=== PATIENT | male | born 1955 | race Caucasian/White ===

== ENCOUNTER → 2017-06-23 07:37 | Outpatient (CLI) | payer OTHER, SELFPAY ==
[2017-06-23 08:36] LABS: AST(SGOT) 14 U/L (15-37); Alanine Aminotransfer ALT/SGPT 27 U/L (16-61); Albumin, Serum 3.7 g/dL (3.2-5.0); Alkaline Phosphatase 116 U/L (45-117); Bilirubin, Direct 0.27 mg/dL (0.00-0.30); Cholesterol 148 mg/dL (200); High Density Lipoprotein 48 mg/dL; Protein, Total 7.7 g/dL (6.4-8.2); Thyroid Stim Hormone (TSH) 1.23 uIU/mL (0.358-3.74); Triglycerides 119 mg/dL; Very Low Density Lipoprotein 24 mg/dL (5-40)
== END ==
PROVIDERS: Family Provider Internal Medicine; PCP Internal Medicine
DX: I25.10 Atherosclerotic heart disease of native coronary artery without angina pectoris (principal); I48.0 Paroxysmal atrial fibrillation; I10 Essential (primary) hypertension; E78.5 Hyperlipidemia, unspecified
CPT/HCPCS: 36415; 80061; 80076; 84443

== ENCOUNTER → 2017-07-20 14:03 | Outpatient (CLI) | payer OTHER, SELFPAY ==
[2017-07-20 16:20] LABS: Anion Gap 7 (5-15); BUN 16 mg/dL (7-18); BUN/Creat Ratio 13.8 RATIO (10-20); Calcium,Total 8.8 mg/dL (8.5-10.1); Chloride 106 mmol/L (98-107); Creatinine, Serum 1.16 mg/dL (0.70-1.30); EST Glomerular Filtration Rate 68 mL/min (>60); Est Glom Filt Rate - Afr Amer 82 mL/min (>60); Glucose 105 mg/dL (74-106); Potassium 3.1 mmol/L (3.5-5.1); Sodium Level 143 mmol/L (136-145)
== END ==
PROVIDERS: Family Provider Internal Medicine; PCP Internal Medicine; Visit Provider Internal Medicine Cardiovascular Disease
DX: I25.10 Atherosclerotic heart disease of native coronary artery without angina pectoris (principal); I10 Essential (primary) hypertension
CPT/HCPCS: 36415; 80048

== ENCOUNTER → 2018-02-21 09:18 | Outpatient (CLI) | payer OTHER, SELFPAY ==
[2018-02-21 10:35] LABS: Mean Corp Hgb Conc 32.6 g/gl (32-36); Mean Corpuscular Volume 89.2 fL (80-94); Mean Platelet Vol. 10.1 fl (6.2-12.0); Platelet Count 245 K/mm3 (150-450); RBC Distribution Width CV 13.9 % (11.6-14.6); RBC Distribution Width SD 45.7 fl (35.1-43.9); Red Blood Count 4.82 M/mm3 (4.6-6.2); White Blood Count 7.1 K/mm3 (4.4-11.0)
[2018-02-21 10:37] LABS: Scan Indicated on CBC? Y/N NO
[2018-02-21 11:17] LABS: ALB/GLOB Ratio 0.9 RATIO (0.9-2.4); AST(SGOT) 13 U/L (15-37); Alanine Aminotransfer ALT/SGPT 26 U/L (16-61); Albumin, Serum 3.7 g/dL (3.2-5.0); Alkaline Phosphatase 109 U/L (45-117); Anion Gap 6 (5-15); BUN 17 mg/dL (7-18); BUN/Creat Ratio 18.6 RATIO (10-20); Calcium,Total 8.6 mg/dL (8.5-10.1); Chloride 106 mmol/L (98-107); Creatinine, Serum 0.92 mg/dL (0.70-1.30); EST Glomerular Filtration Rate 89 mL/min (>60); Est Glom Filt Rate - Afr Amer 108 mL/min (>60); Glucose 99 mg/dL (74-106); Potassium 4.3 mmol/L (3.5-5.1); Protein, Total 7.7 g/dL (6.4-8.2); Sodium Level 141 mmol/L (136-145); Thyroid Stim Hormone (TSH) 1.13 uIU/mL (0.358-3.74)
== END ==
DX: I48.0 Paroxysmal atrial fibrillation (principal); Z79.899 Other long term (current) drug therapy
CPT/HCPCS: 36415; 80053; 84443; 85027

== ENCOUNTER → 2018-09-01 07:43 | Outpatient (CLI) | payer OTHER, SELFPAY ==
[2018-09-01 08:43] LABS: Hemoglobin A1c 5.8 % (4.2-6.3)
== END ==
PROVIDERS: Family Provider Internal Medicine; PCP Internal Medicine; Referring Provider Internal Medicine; Visit Provider Internal Medicine
DX: R73.01 Impaired fasting glucose (principal)
CPT/HCPCS: 36415; 83036

== ENCOUNTER → 2018-10-11 12:17 | Outpatient (CLI) | payer OTHER, SELFPAY ==
[2018-10-11 13:35] LABS: Hematocrit 40.3 % (40-54); Hemoglobin 13.2 g/dl (13.0-16.5); Mean Corp Hgb Conc 32.8 g/gl (32-36); Mean Corpuscular Hgb 28.8 pg (27.0-32.0); Mean Platelet Vol. 9.8 fl (6.2-12.0); Platelet Count 250 K/mm3 (150-450); RBC Distribution Width SD 44.9 fl (35.1-43.9); Red Blood Count 4.58 M/mm3 (4.6-6.2); White Blood Count 7.7 K/mm3 (4.4-11.0)
[2018-10-11 13:36] LABS: Scan Indicated on CBC? Y/N NO
[2018-10-11 14:21] LABS: ALB/GLOB Ratio 0.9 RATIO (0.9-2.4); AST(SGOT) 15 U/L (15-37); Alanine Aminotransfer ALT/SGPT 21 U/L (16-61); Albumin, Serum 3.4 g/dL (3.2-5.0); Alkaline Phosphatase 118 U/L (45-117); Anion Gap 8 (5-15); BUN 21 mg/dL (7-18); BUN/Creat Ratio 20.2 RATIO (10-20); Calcium,Total 8.6 mg/dL (8.5-10.1); Chloride 109 mmol/L (98-107); Creatinine, Serum 1.04 mg/dL (0.70-1.30); EST Glomerular Filtration Rate 77 mL/min (>60); Est Glom Filt Rate - Afr Amer 93 mL/min (>60); Globulin 3.9 g/dL (2.2-4.2); Glucose 91 mg/dL (74-106); Potassium 3.7 mmol/L (3.5-5.1); Protein, Total 7.3 g/dL (6.4-8.2); Sodium Level 144 mmol/L (136-145); Thyroid Stim Hormone (TSH) 1.02 uIU/mL (0.358-3.74)
== END ==
PROVIDERS: Family Provider Internal Medicine; PCP Internal Medicine; Referring Provider Internal Medicine Cardiovascular Disease; Visit Provider Internal Medicine Cardiovascular Disease
DX: I10 Essential (primary) hypertension (principal); Z79.899 Other long term (current) drug therapy
CPT/HCPCS: 36415; 80053; 84443; 85027

== ENCOUNTER → 2019-04-04 14:26 | Outpatient (CLI) | payer OTHER, SELFPAY ==
[2019-04-04 16:20] LABS: Albumin, Serum 3.7 g/dL (3.2-5.0)
== END ==
PROVIDERS: Family Provider Internal Medicine; PCP Internal Medicine; Referring Provider Specialist; Visit Provider Specialist
DX: Z01.812 Encounter for preprocedural laboratory examination (principal)
CPT/HCPCS: 36415; 82040

== ENCOUNTER → 2019-06-06 08:20 | Outpatient (CLI) | payer OTHER, SELFPAY ==
[2019-06-06 09:31] LABS: Cholesterol 155 mg/dL (200); High Density Lipoprotein 50 mg/dL; Triglycerides 98 mg/dL; Very Low Density Lipoprotein 20 mg/dL (5-40)
== END ==
PROVIDERS: Family Provider Internal Medicine; PCP Internal Medicine; Referring Provider Internal Medicine Cardiovascular Disease; Visit Provider Internal Medicine Cardiovascular Disease
DX: I25.10 Atherosclerotic heart disease of native coronary artery without angina pectoris (principal); E78.49 Other hyperlipidemia
CPT/HCPCS: 36415; 80061

== ENCOUNTER → 2019-10-06 10:11 | Outpatient (CLI) | payer BC, SELFPAY ==
[2019-10-05 07:50] VITALS: BMI 34.7
[2019-10-06 11:43] LABS: Anion Gap 5 (5-15); BUN 17 mg/dL (7-18); BUN/Creat Ratio 16.3 RATIO (10-20); Calcium,Total 8.9 mg/dL (8.5-10.1); Chloride 111 mmol/L (98-107); Creatinine, Serum 1.04 mg/dL (0.70-1.30); EST Glomerular Filtration Rate 76 mL/min (>60); Est Glom Filt Rate - Afr Amer 93 mL/min (>60); Glucose 85 mg/dL (74-106); Potassium 3.8 mmol/L (3.5-5.1); Sodium Level 144 mmol/L (136-145)
== END ==
PROVIDERS: PCP Internal Medicine
DX: I10 Essential (primary) hypertension (principal)
CPT/HCPCS: 36415; 80048

== ENCOUNTER 2019-10-30 12:44 | Observation (INO) | payer BC, SELFPAY ==
[2019-10-05 07:50] VITALS: BMI 34.7
--- NOTE | 2019-10-05 09:08 | HP_ITS ---
Intake Vital Signs 10/05/19 BMI 34.7 10/05/19 Height 6 ft 2.5 in 10/05/19 Weight: 255 lb 4 oz 10/05/19 BMI 32.3 10/05/19 BP 162/73 H 10/05/19 Blood Pressure Location Rt brachial 10/05/19 Position Sitting 10/05/19 Respiration 20 H 10/05/19 Pulse 50 L 10/05/19 Temp 98.2 F 10/05/19 Temp Source Temporal 10/05/19 Pulse Oximetry (%) 97 Intake Visit Reasons: GALLBLADDER PROBLEM/ [facility] 09/20 Chief Complaint: gallstones Director Peoplesoft Required: No Is patient in pain?: No Allergies Penicillins Allergy (Verified 10/05/19 07:47) Hives Medications Clopidogrel Bisulfate [Plavix] 75 mg PO DAILY 09/03/14 [History Confirmed 10/05/19] Lisinopril [Zestril] 40 mg PO BID 09/03/14 [History Confirmed 10/05/19] amiodarone 200 mg tablet 200 mg PO DAILY tab 10/05/19 [History Confirmed 10/05/19] amlodipine 5 mg tablet 5 mg PO DAILY 10/05/19 [History Confirmed 10/05/19] amlodipine 5 mg tablet 5 mg PO DAILY tab 10/05/19 [History Confirmed 10/05/19] atorvastatin 80 mg tablet 80 mg PO DAILY tab 10/05/19 [History Confirmed 10/05/19] ezetimibe 10 mg tablet 10 mg PO DAILY tab 10/05/19 [History Confirmed 10/05/19] furosemide 40 mg tablet 40 mg PO DAILY tab 10/05/19 [History Confirmed 10/05/19] metoprolol tartrate 25 mg tablet 50 mg PO BID tab 10/05/19 [History Confirmed 10/05/19] minoxidil 10 mg tablet 5 mg PO BID tab 10/05/19 [History Confirmed 10/05/19] nitroglycerin 0.4 mg sublingual tablet 0.4 mg SUBLINGUAL Q5-15M PRN tab 10/05/19 [History Confirmed 10/05/19] omeprazole 40 mg capsule,delayed release 40 mg PO DAILY cap 10/05/19 [History Confirmed 10/05/19] [facility] Medical History severe degenerative arthritis of right hip (Chronic) Rheumatoid arthritis (Chronic) Obstructive sleep apnea syndrome (Chronic) history of ischemic stroke (Chronic) HTN (hypertension) (Chronic) Hyperlipidemia (Chronic) Esophageal reflux (Chronic) Coronary atherosclerosis of [place] coronary vessel (Chronic) Atrial fibrillation (Acute) CAD (coronary artery disease) (Acute) COPD (chronic obstructive pulmonary disease) (Chronic) Surgical History History of cardiac catheterization (Acute) History of colonoscopy (Acute ~2015) History of coronary angioplasty (Acute) History of esophagogastroduodenoscopy (EGD) (Acute ~2015) History of heart artery stent (Acute) History of inguinal hernia repair (Acute) History of knee joint replacement (Acute) History of left shoulder replacement (Acute) History of total left hip arthroplasty (Acute) History of total right hip arthroplasty (Acute) Family History (Updated 10/05/19 @ 07:46 by Rena Rosas) Sister Cancer ovarian Brother Diabetes Social History (Updated 10/05/19 @ 09:[address] Dwayne Bess MD) Smoking Status: Never smoker HPI HPI HPI: SHANNON OLSON, is a 63 M who presents to the office today for HPI HPI Surgical H&P: Yes HPI: SHANNON OLSON, is a 63 M who presents to the office today for surgical consultation regarding ongoing problems with episodic right upper quadrant pain. The patient states about 2 weeks ago he was hospitalized with chest pain different from his abdominal pain. He states that he previously has coronary stents in place but that at [facility] he had cardiac catheterization and angioplasty but no additional stents placed. He is was in atrial fibrillation and was cardioverted. He is currently on in addition to his other medicines atorvastatin and clopidogrel and amiodarone and Eliquis. He is having problems postprandially with right upper quadrant pain that radiates to his back. He denies jaundice. He currently denies fever or chills or sweats. He is able to climb a flight of stairs. He had a gallbladder ultrasound performed demonstrating a gallbladder full of stones. Common bile duct was felt to be normal. He had in late August liver function tests and CBC which were normal. The patient is referred by his primary care physician Dr. Mary Carmen Lyons and a written copy of my surgical consult and recommendations will be returned to her ROS General General: Yes weight change; no appetite, fatigue, colon cancer, breast cancer or weakness HEENT HEENT: Yes eye surgery; no difficulty swallowing, eye injury, swollen glands or hoarseness Endo Endocrine: No thyroid disease, diabetes mellitus, thyroid cancer, Hair loss, heat intolerance or cold intolerance Musc Musculoskeletal: Yes rheumatoid arthritis; no back problems, arthritis, gout or joint pain Cardio Cardiovascular: Yes heart disease, atrial fibrillation, high blood pressure, heart attack and heart stent; no murmur, pacemaker, palpitations, shortness of breat with exertion or chest pain Psych Psychiatric: Yes depression; no anxiety or hearing voices Resp Respiratory: No shortness of breath, Yes sleep apnea, No cough, Yes COPD, No asthma, No emphysema, No wheezing Gastro Gastrointestinal: No abdominal pain, No nausea or vomiting, No diarrhea, No constipation, No blood in stool, No acid reflux, No hemorrhoids, No ulcers, Yes gallbladder problem, No black,tarry stools Flip Hematologic: Yes blood thinners, No blood disorders, No bleeding, No anemia, No blood clots Neuro Neurologic: No weakness Exam Const General: cooperative, comfortable, no acute distress Nutritional Appearance: obese Orientation: alert, awake, oriented x3 HENMT Head: normal to inspection Eyes General: appearance normal, both eyes and all related structures Neck Neck: normal visual inspection Resp Effort & Inspection: normal respiratory effort Auscultation: clear to auscultation bilaterally Cardio Rate: regular rate Rhythm: regular rhythm Heart Sounds: no murmurs GI Inspection: normal to inspection Palpation: soft, no hepatosplenomegaly Auscultation: normal bowel sounds Musc Cervical Spine: normal cervical lordosis Skin General: no rashes or lesions noted Neuro Cognition: normal cognition Extrem General: calf tenderness Psych Affect: normal affect Assessment & Plan Problems 1. Calculus of gallbladder with chronic cholecystitis without obstruction K80.10 Plan 63-year-old gentleman who is had a long-term history of known gallbladder disease perhaps stretching over 10 years. Previous attempts to perform a repair were delayed by history of blunt trauma fractured ribs and the patient never rescheduled. Over the years he has had intermittent symptoms but nothing severe. Recently he has had acute escalation of his symptoms of right upper quadrant pain postprandially. He is now interested in pursuing definitive treatment. There is increased risk because of the recent angioplasty without coronary stenting. He has atrial fibrillation. He is on dual anticoagulation. He also has rheumatoid arthritis but he is not on any immunologic's. I propose for him a laparoscopic cholecystectomy with selective cholangiography and in detail I discussed the technique, benefit, risk and alternatives. No guarantees of success of been offered. We discussed the current Covid-19 pandemic. The [facility] administration advises that they have a low local incidence. The patient has had an opportunity to ask and have questions answered. He will need to hold his Eliquis 48 hours preprocedure. Ideally we would have him hold his clopidogrel for 4 days preprocedure. We will check with his acid dipper regarding the timing of our surgical procedure because of his recent coronary intervention. The patient is aware that Covid-19 testing will be performed 2 days prior surgery and that he will require home quarantine from the time of this testing till surgery. I appreciate the opportunity of assisting with his surgical care. We will schedule and proceed as noted. Cc: Dr. Mary Carmen Bess M.D., F.A.C.S. Coding Level of Care Code 80642 Diagnoses Calculus of gallbladder with chronic cholecystitis without obstruction K80.10 ??Cholelithiasis location: gallbladder ??Biliary obstruction: without biliary obstruction 10/05/19 0908 <Electronically signed by Dwayne mueller MD> Date _ Dwayne Bess MD
--- NOTE | 2019-10-27 09:24 | EKG12_ITS ---
Test Reason : POSSIBLE ST ELEVATIO Blood Pressure : / mmHG Vent. Rate : 070 BPM Atrial Rate : 070 BPM P-R Int : 190 ms QRS Dur : 172 ms QT Int : 486 ms P-R-T Axes : 044 001 065 degrees QTc Int : 524 ms Normal sinus rhythm Left bundle branch block Abnormal ECG When compared with ECG of 30-OCT-2019 14:25, MANUAL COMPARISON REQUIRED, DATA IS UNCONFIRMED Confirmed by JHONNY ALVARADO, PEACE ([id number]), editorial writer GIA LING ([id number]) on 11/07/2019 9:52:05 AM Referred By: Dwayne Bess Confirmed By:PEACE BARRY MD
[2019-10-27 10:17] LABS: Hematocrit 40.2 % (40-54); Hemoglobin 12.7 g/dL (13.0-16.5); Mean Corp Hgb Conc 31.6 g/dL (32-36); Mean Corpuscular Hgb 29.1 pg (27.0-32.0); Platelet Count 264 K/mm3 (150-450); RBC Distribution Width SD 47.3 fl (35.1-43.9); Red Blood Count 4.37 M/mm3 (4.6-6.2); White Blood Count 7.9 K/mm3 (4.4-11.0)
[2019-10-27 10:30] LABS: Anion Gap 4 (5-15); BUN 23 mg/dL (7-18); BUN/Creat Ratio 18.4 RATIO (10-20); Calcium,Total 8.7 mg/dL (8.5-10.1); Chloride 112 mmol/L (98-107); Creatinine, Serum 1.25 mg/dL (0.70-1.30); EST Glomerular Filtration Rate 62 mL/min (>60); Est Glom Filt Rate - Afr Amer 75 mL/min (>60); Glucose 81 mg/dL (74-106); Sodium Level 143 mmol/L (136-145)
[2019-10-29 10:49] LABS: Probe Check PASS; Specimen Processing Control PASS
[2019-10-30] VITALS (20 sets, daily range): BP systolic 92–158; BP diastolic 58–90; PULSE 40–67; RESP 16–18; TEMP 36.2–37.7; O2SAT 88–100; BMI 33.7; BMI 34.8; BMI 34.7
--- NOTE | 2019-10-30 06:20 | HP.PCM_ITS ---
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 Is patient in pain?: No Allergies Penicillins Allergy (Verified 10/05/19 07:47) Hives Medications Clopidogrel Bisulfate [Plavix] 75 mg PO DAILY 09/03/14 [History Confirmed 10/05/19] Lisinopril [Zestril] 40 mg PO BID 09/03/14 [History Confirmed 10/05/19] amiodarone 200 mg tablet 200 mg PO DAILY tab 10/05/19 [History Confirmed 10/05/19] amlodipine 5 mg tablet 5 mg PO DAILY 10/05/19 [History Confirmed 10/05/19] amlodipine 5 mg tablet 5 mg PO DAILY tab 10/05/19 [History Confirmed 10/05/19] atorvastatin 80 mg tablet 80 mg PO DAILY tab 10/05/19 [History Confirmed 10/05/19] ezetimibe 10 mg tablet 10 mg PO DAILY tab 10/05/19 [History Confirmed 10/05/19] furosemide 40 mg tablet 40 mg PO DAILY tab 10/05/19 [History Confirmed 0] metoprolol tartrate 25 mg tablet 50 mg PO BID tab 10/05/19 [History Confirmed 10/05/19] minoxidil 10 mg tablet 5 mg PO BID tab 10/05/19 [History Confirmed 10/05/19] nitroglycerin 0.4 mg sublingual tablet 0.4 mg SUBLINGUAL Q5-15M PRN tab 10/05/19 [History Confirmed 10/05/19] omeprazole 40 mg capsule,delayed release 40 mg PO DAILY cap 10/05/19 [History Confirmed 10/05/19] [facility] Medical History severe degenerative arthritis of right hip (Chronic) Rheumatoid arthritis (Chronic) Obstructive sleep apnea syndrome (Chronic) history of ischemic stroke (Chronic) HTN (hypertension) (Chronic) Hyperlipidemia (Chronic) Esophageal reflux (Chronic) Coronary atherosclerosis of [place] coronary vessel (Chronic) Atrial fibrillation (Acute) CAD (coronary artery disease) (Acute) COPD (chronic obstructive pulmonary disease) (Chronic) Surgical History History of cardiac catheterization (Acute) History of colonoscopy (Acute ~2015) History of coronary angioplasty (Acute) History of esophagogastroduodenoscopy (EGD) (Acute ~2015) History of heart artery stent (Acute) History of inguinal hernia repair (Acute) History of knee joint replacement (Acute) History of left shoulder replacement (Acute) History of total left hip arthroplasty (Acute) History of total right hip arthroplasty (Acute) Family History (Updated 10/05/19 @ 07:46 by Rena Rosas) Sister Cancer ovarian Brother Diabetes Social History (Updated 10/05/19 @ 09:[address] Dwayne Bess MD) Smoking Status: Never smoker HPI HPI HPI: SHANNON OLSON, is a 63 M who presents to the office today for HPI HPI Surgical H&P: Yes HPI: SHANNON OLSON, is a 63 M who presents to the office today for surgical consultation regarding ongoing problems with episodic right upper quadrant pain. The patient states about 2 weeks ago he was hospitalized with chest pain different from his abdominal pain. He states that he previously has coronary stents in place but that at [facility] he had cardiac catheterization and angioplasty but no additional stents placed. He is was in atrial fibrillation and was cardioverted. He is currently on in addition to his other medicines atorvastatin and clopidogrel and amiodarone and Eliquis. He is having problems postprandially with right upper quadrant pain that radiates to his back. He denies jaundice. He currently denies fever or chills or sweats. He is able to climb a flight of stairs. He had a gallbladder ultrasound performed demonstrating a gallbladder full of stones. Common bile duct was felt to be normal. He had in late August liver function tests and CBC which were normal. The patient is referred by his primary care physician Dr. Mary Carmen Lyons and a written copy of my surgical consult and recommendations will be returned to her ROS General General: Yes weight change; no appetite, fatigue, colon cancer, breast cancer or weakness HEENT HEENT: Yes eye surgery; no difficulty swallowing, eye injury, swollen glands or hoarseness Endo Endocrine: No thyroid disease, diabetes mellitus, thyroid cancer, Hair loss, heat intolerance or cold intolerance Musc Musculoskeletal: Yes rheumatoid arthritis; no back problems, arthritis, gout or joint pain Cardio Cardiovascular: Yes heart disease, atrial fibrillation, high blood pressure, heart attack and heart stent; no murmur, pacemaker, palpitations, shortness of breat with exertion or chest pain Psych Psychiatric: Yes depression; no anxiety or hearing voices Resp Respiratory: No shortness of breath, Yes sleep apnea, No cough, Yes COPD, No asthma, No emphysema, No wheezing Gastro Gastrointestinal: No abdominal pain, No nausea or vomiting, No diarrhea, No constipation, No blood in stool, No acid reflux, No hemorrhoids, No ulcers, Yes gallbladder problem, No black,tarry stools Flip Hematologic: Yes blood thinners, No blood disorders, No bleeding, No anemia, No blood clots Neuro Neurologic: No weakness Exam Const General: cooperative, comfortable, no acute distress Nutritional Appearance: obese Orientation: alert, awake, oriented x3 HENMT Head: normal to inspection Eyes General: appearance normal, both eyes and all related structures Neck Neck: normal visual inspection Resp Effort & Inspection: normal respiratory effort Auscultation: clear to auscultation bilaterally Cardio Rate: regular rate Rhythm: regular rhythm Heart Sounds: no murmurs GI Inspection: normal to inspection Palpation: soft, no hepatosplenomegaly Auscultation: normal bowel sounds Musc Cervical Spine: normal cervical lordosis Skin General: no rashes or lesions noted Neuro Cognition: normal cognition Extrem General: calf tenderness Psych Affect: normal affect Assessment & Plan Problems 1. Calculus of gallbladder with chronic cholecystitis without obstruction K80.10 Plan 63-year-old gentleman who is had a long-term history of known gallbladder disease perhaps stretching over 10 years. Previous attempts to perform a repair were delayed by history of blunt trauma fractured ribs and the patient never rescheduled. Over the years he has had intermittent symptoms but nothing severe. Recently he has had acute escalation of his symptoms of right upper quadrant pain postprandially. He is now interested in pursuing definitive treatment. There is increased risk because of the recent angioplasty without coronary stenting. He has atrial fibrillation. He is on dual anticoagulation. He also has rheumatoid arthritis but he is not on any immunologic's. I propose for him a laparoscopic cholecystectomy with selective cholangiography and in detail I discussed the technique, benefit, risk and alternatives. No guarantees of success of been offered. We discussed the current Covid-19 pandemic. The [facility] administration advises that they have a low local incidence. The patient has had an opportunity to ask and have questions answered. He will need to hold his Eliquis 48 hours preprocedure. Ideally we would have him hold his clopidogrel for 4 days preprocedure. We will check with his manager risk regarding the timing of our surgical procedure because of his recent coronary intervention. The patient is aware that Covid-19 testing will be performed 2 days prior surgery and that he will require home quarantine from the time of this testing till surgery. I appreciate the opportunity of assisting with his surgical care. We will schedule and proceed as noted. Cc: Dr. Mary Carmen Bess M.D., F.A.C.S. Coding Level of Care Code 04747 Diagnoses Calculus of gallbladder with chronic cholecystitis without obstruction K80.10 ??Cholelithiasis location: gallbladder ??Biliary obstruction: without biliary obstruction I have re-examined the patient. There are no clinical changes since date of exa m. Procedure Criteria Procedure Type: Elective COVID Risk Discussion: The surgeon/proceduralist and patient have discussed in detail the risk of exposure to and/or potential harm posed by the COVID-19 virus with having a surgery/procedure at this time versus the risk of delaying the surgery/procedure. It is not possible to know either the risk of delaying the surgery or procedure or chance of getting an infection with perfect accuracy, but a joint decision was made between the patient and the surgeon/proceduralist to proceed at this time with the scheduled surgery/procedure as indicated on the consent form.
[2019-10-30] MEDS: Lactated Ringers 1,000 ML 100 ML IV ×3 (07:00→11:22)
--- NOTE | 2019-10-30 07:25 | PCM.DC.GS ---
Discharge Diet: Light diet - advance as tolerated - if you have questions about your diet instructions, please talk to you doctor. Discharge Activity: May Not Drive - for 3-5days or while taking narcotic pain medicine. May shower in (days): 1 Lifting Restrictions: 10 pounds Call your doctor if your incision/area has: Continuous Slow Oozing, Sudden Increased Bleeding, Increased Pain/ Swelling, Increased Redness, Foul Smelling Discharge Call your doctor if you observe: Fever of 101 or Higher Suture Line Care: Avoid Pulling/Pushing, Avoid Pinching/Bending Additional Dressing/Incision Instructions:: Change or remove dressing in 4 days. Leave steri-strips in place for 1 week. Additional Instructions: You may resume your Plavix on November 01, 2019 if no signs of previous bleeding. You may resume Eliquis on November 02, 2019 if no signs of previous bleeding Allergies/Adverse Reactions: Allergies Penicillins Allergy (Verified 10/30/19 06:44) Hives Medications to take at Discharge Clopidogrel Bisulfate [Plavix] 75 mg PO DAILY 09/03/14 Lisinopril [Zestril] 40 mg PO BID 09/03/14 amiodarone 200 mg tablet 200 mg PO DAILY tab 10/05/19 amlodipine 5 mg tablet 5 mg PO DAILY 10/05/19 atorvastatin 80 mg tablet 80 mg PO DAILY tab 10/05/19 ezetimibe 10 mg tablet 10 mg PO DAILY tab 10/05/19 furosemide 40 mg tablet 40 mg PO DAILY tab 10/05/19 metoprolol tartrate 25 mg tablet 50 mg PO BID tab 10/05/19 minoxidil 10 mg tablet 5 mg PO BID tab 10/05/19 nitroglycerin 0.4 mg sublingual tablet 0.4 mg SUBLINGUAL Q5-15M PRN tab 10/05/19 omeprazole 40 mg capsule,delayed release 40 mg PO DAILY cap 10/05/19 Apixaban [Eliquis] 5 mg PO BID 10/24/19 Hydrocodone Bitart/Apap 5-325 [[place] 5MG-325MG] 1 tablet PO Q6H PRN PRN 2 Days #5 tablet 10/30/19 The following prescriptions were given: Hydrocodone Bitart/Apap 5-325 [[place] 5MG-325MG] 1 tablet PO Q6H PRN PRN 2 Days #5 tablet PRN Reason: Pain Transmission Status: Sent to [facility] Primary Care Physician: Mary Carmen Lyons MD [Primary Care Provider] - Test Results: Test results from this visit will be discussed in further detail at your follow-up appointment, if applicable. Please Follow Up With: Dwayne Bess MD - [phone] When: Call to make an appointment to be seen in about 10 days.
--- NOTE | 2019-10-30 07:30 | RAD_ITS ---
STUDY: INTRAOPERATIVE CHOLANGIOGRAM. REASON FOR EXAM: Male, 64 years old. ABD PAIN FLUOROSCOPY TIME (if supplied): ( 26 seconds ) minutes/seconds. A single loop consisting of 178 images were submitted. TECHNIQUE: An intraoperative cholangiogram was performed by the surgeon. Imaging was submitted. COMPARISON: None. FINDINGS: The intrahepatic biliary ducts are unremarkable. The common bile duct is not dilated. Free flow of contrast into the duodenum. RAD/Cholangiogram/ O R,Initial IMPRESSION: Unremarkable intraoperative cholangiogram. Electronically Signed: Beka Zuleta, at 9:28 EDT , Service support ,
--- NOTE | 2019-10-30 07:30 | HERN_PTH ---
PATIENT: SHANNON OLSON LOC: [facility] U#:[id number] AGE/SX: 64/M ROOM: [facility] RE10/30/[address]: Dr. Dwayne Bess MD : [id number] BED: 1 DIS: 10/31/2019 SPEC #: [id number] RECD: 10/30/19 10:27 STATUS: LALIT SRIVASTAVANatalia #: [id number] KAILA: 10/30/19 07:[address]: Dwayne Bess DEPT: SURGICAL PATHOLOGY RECD BY: Narciso Roland ENTERED: 10/30/19 10:50 SP TYPE: Hernia OTHR DR: Dr. Mary Carmen Lyons MD Tissues: A - HERNIA B - Gallbladder, NOS Procedures: Surgery Specimen Level II Surgery Specimen Level III HEADER OPERATION: Laparoscopic cholecystectomy with IOC PRE-OP DIAGNOSIS: Calculus of gallbladder with chronic cholecystitis TISSUE SUBMITTED: A - Hernia sac and contents, B - Gallbladder MICROSCOPIC DIAGNOSIS A. Hernia sac and contents, excision: Hernia sac with fibrosis and minimal chronic inflammation. B. Gallbladder, cholecystectomy: Chronic cholecystitis and cholelithiasis. AM:ashanti 10/31/19 MICROSCOPIC DESCRIPTION Slides are reviewed. GROSS DESCRIPTION A - Received in fixative is one container labeled with the patient's name and designated hernia sac and contents. The specimen consists of an irregular fragment of pink-yellow fibrofatty tissue measuring 4.5 x 3.5 x 2 cm. Serial sections reveal yellow cut surfaces. No mass lesions are identified. Button And Buckle Maker sections are submitted in one cassette. B - Received is one container labeled with the patient's name and designated gallbladder. The specimen consists of a gallbladder measuring 13 x 4.3 x 3.2 cm. The external surface is smooth and glistening. Focally, it is granular, hemorrhagic and contains cautery artifact. The lumen of the gallbladder contains yellow-green mucoid bile and dark jc-black calculi ranging in size <0.1 to 2.2 cm. The mucosa is bile-stained and without any mass lesions. The gallbladder wall averages 0.2 cm in thickness and is free of mass lesions. Button And Buckle Maker sections of the gallbladder and the cystic duct at margin of resection are submitted in one cassette. / AM:ashanti 10/30/19 TC:3 CPT: 16222, 99516
--- NOTE | 2019-10-30 09:13 | OP.PCM_ITS ---
Problem List (1) Cholelithiasis with chronic cholecystitis Status: Chronic Qualifiers: Report of Operation Date of Procedure: 10/30/19 Pre-Operative Diagnosis: Chronic cholecystitis cholelithiasis, umbilical hernia Post-Operative Diagnosis: Same Surgery/Procedure Performed:: Laparoscopic cholecystectomy with cholangiograms. Umbilical herniorrhaphy with Nurolon Description of Surgical Findings:: Timeout and informed consent was obtained. 64-year-old gentleman was taken to the operating room placed by the table underwent general endotracheal intubation and anesthesia. Clindamycin 900 mg are given intravenously preoperatively. The abdomen was sterilely prepped and draped. 0.5% Marcaine was used as a local anesthetic. Throughout the procedure total of 30 cc was used. Skin sites were pre-anesthetized. A curvilinear incision was made in the inferior portion of the umbilicus sharp and blunt dissection was used to elevate the umbilical skin. A incarcerated umbilical hernia with some omentum was encountered. This was transected using electrocautery on the sac and contents submitted the specimen. Holding sutures of 0 Vicryl placed. The abdomen was insufflated with CO2 to a pressure of 10 mmHg pressure using a varies needle. 10 mm trocar was inserted. 10 mm laparoscope inserted. No concern trocar injuries. The abdomen was rapidly inspected no evidence of any superficial abnormalities other than that the omentum was densely adherent to the gallbladder. 5 mm trochars were placed in the epigastric mid abdomen right upper quadrant. The omentum had to be carefully bluntly and sharply dissected free from the gallbladder. Were needed hemostasis attained with hemo-lock clips. Then tedious dissection was performed at the infundibular area. The patient's body habitus and fibrofatty tissue made this challenging. Finally I was able to get the critical view identified the cystic duct cystic artery and the liver plate. I placed 2 hemo-lock clips proximally and the cystic artery one distally. Transected it. Put a hemo-lock clip on the cystic duct made incision and cystic duct placed a 14-gauge Angiocath of that lab and inserted a cholangiogram catheter. I then obtained fluoroscopically: Angiograms demonstrated normal ductal anatomy and free flow into the small bowel. The cholangiogram catheter was removed and 1 additional hemo-lock was placed on the cystic duct stump prior to transecting it. The gallbladder was tediously dissected free from the liver bed. Hemostasis was obtained with electrocautery. Fibrillar was placed in the liver bed at the completion as well to assure hemostasis. The gallbladder was placed in a retrieval bag. The right upper quadrant was irrigated and aspirated free of excess fluid. Air was evacuated through an antiviral valve. The liver bed area was again inspected was noted to be hemostatic the area was allowed to deflate the fascia at the umbilicus had to be lengthened both lat erally to allow for removal of the markedly enlarged gallbladder with multiple stones. Then the fascia was tediously reapproximated transversely with multiple simple sutures of 0 Nurolon. Skin edges were approximated with interrupted 4 Monocryl subdermal stitches. Steri-Strips Telfa OpSite dressings applied. Sponge and instrument and needle counts were reported to the surgeon to be correct. Blood loss minimal. He tolerated the procedure well and was taken to the recovery room in satisfactory condition without apparent complication. Specimens umbilical hernia sac and contents plus gallbladder. Drains none. Blood loss minimal. Dwayne Bess M.D., F.A.C.S. Type of Anesthesia:: General Anesthesiologist: Yasmani Win
[2019-10-30] MEDS: Bupivacaine Mpf 0.5% 30 ML VIAL (09:18)
--- NOTE | 2019-10-30 12:38 | EKG12_ITS ---
Test Reason : PRE-OP Blood Pressure : / mmHG Vent. Rate : 047 BPM Atrial Rate : 047 BPM P-R Int : 202 ms QRS Dur : 118 ms QT Int : 544 ms P-R-T Axes : 045 011 -02 degrees QTc Int : 481 ms Sinus bradycardia Left ventricular hypertrophy with QRS widening Inferior infarct , age undetermined Confirmed by JHONNY ALVARADO, PEACE ([id number]), video tape editor MILTON BRANHAM ([id number]) on 10/31/2019 10:44:27 AM Referred By: Dwayne Bess Confirmed By:PEACE BARRY MD
--- NOTE | 2019-10-30 12:54 | PCM.PN.BLA ---
Progress Note Patient very nonspecific. He is complaining that he has never felt so badly after a general anesthetic and surgery. He is complaining of feeling lightheaded and dizzy. He is complaining of abdominal pain. No vital signs have yet been obtained an EFRAIN. We will obtain vital signs. The patient medical comorbidities I anticipate that we will hold onto him overnight. I am attempting to consult hospitalist for assistance. The patient's screener and blender is out of town. Laboratory, EKG, cardiac profile pending. Dwayne Bess M.D., F.A.C.S. STROKE Vital Signs/Narrative: Vital Signs Temp Pulse Resp BP Pulse Ox 10/30/19 12:41 97.4 F L 45 L 16 125/68 H 97 10/30/19 11:30 97.2 F L 44 L 16 119/72 92 10/30/19 11:15 43 L 16 128/90 H 94 10/30/19 11:00 43 L 16 121/67 H 91 10/30/19 10:45 42 L 16 126/74 H 91 10/30/19 10:30 42 L 16 92/71 95 10/30/19 10:15 42 L 16 119/67 96 10/30/19 10:00 40 L 16 122/70 H 94 10/30/19 09:45 41 L 16 113/77 94 10/30/19 09:35 98.1 F 45 L 16 140/78 H 88
--- NOTE | 2019-10-30 14:44 | EKG12_ITS ---
Test Reason : PRE-OP Blood Pressure : / mmHG Vent. Rate : 049 BPM Atrial Rate : 049 BPM P-R Int : 208 ms QRS Dur : 110 ms QT Int : 504 ms P-R-T Axes : 039 008 007 degrees QTc Int : 455 ms Sinus bradycardia Inferior infarct , age undetermined Abnormal ECG Confirmed by MANISHA MIJARES ([id number]), manuscript editor GIA LING ([id number]) on 11/02/2019 7:43:19 AM Referred By: Dwayne Bess Confirmed By:MANISHA MIJARES
--- NOTE | 2019-10-30 15:05 | PCM.PROGNOTE ---
Subjective: Patient seen and examined. Patient reports abdominal discomfort as well as lightheadedness postoperatively following laparoscopic cholecystectomy with cholangiogram and umbilical herniography. He denies chest pain, shortness of breath. Denies diaphoresis. - Physical Exam Vitals/I&O's: Vital Signs Temp Pulse Resp BP Pulse Ox 97.4 F L 52 L 18 138/69 H 99 10/30/19 15:00 10/30/19 15:00 10/30/19 15:00 10/30/19 15:00 10/30/19 15:00 Oxygen Flow Rate (L/min) 2 Oxygen Delivery Method Room Air Weight: 271 lb Body Mass Index (BMI) 34.7 Intake and Output for Last 24 Hours 10/28/19 10/29/19 10/30/19 23:59 23:59 23:59 Intake Total 2105 Balance 2105 General: Alert, Oriented x3, Cooperative HEENT: Atraumatic, PERRLA, EOMI, Normocephalic Neck: Supple, No JVD, Negative Carotid Bruits Lungs: Clear to auscultation, Normal air movement Cardiovascular: No murmurs, Bradycardic Abdomen: Bowel Sounds Present, Soft, Non Tender, Non-Distended, - - Postop sites intact Extremities: No clubbing, No cyanosis, No edema, Capillary Refill Less than 3 Seconds Skin: No rashes, No breakdown Musculoskeletal: No Tenderness to Palpation of Joints or Extremities Neurological: Cranial nerves II-XII grossly intact, Neuro grossly intact Psych/Mental Status: Normal Affect, Appropriate Laboratory Results 10/30/19 12:52: Troponin I 0.175 H Current Medications Acetaminophen (Tylenol) 650 mg PO Q6H PRN PRN PRN Reason: Pain Score 1-10/10 Hydrocodone Bitart/Acetaminophen ([place] 5mg-325mg) 1 - 2 tablet PO Q4H PRN PRN PRN Reason: Pain Score 1-10/10 Lactated Ringer's () 1,000 mls @ 50 mls/hr IV .Q20H [facility]EL[facility] Morphine Sulfate () 1 - 2 mg IV Q1H PRN PRN Reason: PAIN SCORE 1-10/10 Ondansetron HCl (Zofran) 4 mg IV Q8H PRN PRN PRN Reason: Nausea Sodium Chloride () 10 - 40 ml IV UD PRN PRN Reason: SALINE FLUSH Medical Necessity - Tobacco Use Smoking Status: Never smoker Tobacco Use: Non-smoker Assessment/Plan 1. Postoperative lightheadedness, abnormal troponin-history of CAD with prior stents. Per outside records, patient had stress echo 09/08/2019 which was abnormal and demonstrated basal and mid inferoseptal wall worsening with stress, indicating stress-induced ischemia. Per patient, he was then evaluated at [facility] with ballooning to prior stent approximately 6 weeks ago. Will request records. Trend enzymes. Resume anticoagulation with Eliquis and antiplatelet Plavix when okay per surgery. Continue statin, BP regimen with hold parameters. Obtain orthos. 2. Status post laparoscopic cholecystectomy with cholangiogram and umbilical herniorrhaphy postop day #0-management per surgery. 3. Hypertension-stable, continue amlodipine, lisinopril. Hold metoprolol tonight given mild bradycardia. 4. Hyperlipidemia-continue statin. 5. Recent diagnosis paroxysmal atrial fibrillation-on amiodarone, metoprolol, Eliquis. 6. Obesity-encouraged diet and lifestyle modifications. 7. GERD-continue PPI. DVT prophylaxis-SCDs, resume Eliquis when okay per surgery This patient was seen by KYLIE Nava under the supervision of Dr. Davies.
[2019-10-30] MEDS: Lactated Ringers 1,000 ML 50 ML IV (15:14)
[2019-10-30] MEDS: Acetaminophen 325 MG Tablet 650 MG PO (15:23)
--- NOTE | 2019-10-30 16:25 | PCM.PN.BLA ---
Progress Note Appreciate medical assistance Pt states he just feels wiped-out No CP or SoB Less abdominal pain Continue care. Plan discharge tomorrow STROKE Vital Signs/Narrative: Vital Signs Temp Pulse Resp BP Pulse Ox 10/30/19 15:00 97.4 F L 52 L 18 138/69 H 99 10/30/19 14:34 48 L 10/30/19 13:34 98.7 F 49 L 16 130/77 H 98 10/30/19 13:33 98.7 F 49 L 16 130/77 H 98 10/30/19 12:41 97.4 F L 45 L 16 125/68 H 97
[2019-10-30] MEDS: Ondansetron 4 MG/2 ML Vial IV (17:36)
[2019-10-30] MEDS: HYDROcodone Bitartrate/Apap 5/325 Tablet PO (17:36)
[2019-10-30 17:59] LABS: Mean Corp Hgb Conc 32.5 g/dL (32-36); Mean Corpuscular Hgb 29.7 pg (27.0-32.0); Mean Corpuscular Volume 91.3 fL (80-94); Mean Platelet Vol. 9.7 fl (6.2-12.0); Platelet Count 254 K/mm3 (150-450); RBC Distribution Width CV 14.2 % (11.6-14.6); RBC Distribution Width SD 47.8 fl (35.1-43.9); Red Blood Count 4.38 M/mm3 (4.6-6.2); White Blood Count 16.6 K/mm3 (4.4-11.0)
[2019-10-30 18:08] LABS: Anion Gap 5 (5-15); BUN 22 mg/dL (7-18); BUN/Creat Ratio 18.8 RATIO (10-20); Calcium,Total 8.6 mg/dL (8.5-10.1); Chloride 107 mmol/L (98-107); Creatinine, Serum 1.17 mg/dL (0.70-1.30); EST Glomerular Filtration Rate 67 mL/min (>60); Est Glom Filt Rate - Afr Amer 81 mL/min (>60); Estimated Creatinine Clearance 74.16 ml/min; Glucose 122 mg/dL (74-106); Sodium Level 141 mmol/L (136-145)
[2019-10-30] MEDS: Morphine 2 MG/ML Syringe IV ×2 (20:11→23:50)
[2019-10-30] MEDS: 0.9% Saline Lock 10 ML Syringe IV (20:12)
[2019-10-30] MEDS: Minoxidil 2.5 MG Tablet 5 MG PO (21:37)
--- NOTE | 2019-10-30 22:26 | EKG12_ITS ---
Test Reason : CP IN PACU ADMIT Blood Pressure : / mmHG Vent. Rate : 048 BPM Atrial Rate : 048 BPM P-R Int : 202 ms QRS Dur : 110 ms QT Int : 522 ms P-R-T Axes : 044 013 -13 degrees QTc Int : 466 ms Sinus bradycardia Inferior infarct , age undetermined Abnormal ECG When compared with ECG of 30-OCT-2019 12:56, MANUAL COMPARISON REQUIRED, DATA IS UNCONFIRMED Confirmed by JHONNY ALVARADO, PEACE ([id number]), image editor GIA LING ([id number]) on 11/07/2019 9:52:22 AM Referred By: Dwayne Bess Confirmed By:PEACE BARRY MD
[2019-10-31 03:14] VITALS: PULSE 71
[2019-10-31 03:40] VITALS: BP 154/60; BP 157/70; BP 157/74; PULSE 72; PULSE 74; PULSE 78; RESP 16; TEMP 37.2; O2SAT 94
[2019-10-31] MEDS: Ondansetron 4 MG/2 ML Vial IV (04:07)
[2019-10-31] MEDS: Morphine 2 MG/ML Syringe IV (04:25)
[2019-10-31 05:12] LABS: Absolute Neutrophil Count 12.4 X10^3/uL (2.0-7.7); Basophil# 0.01 X10^3/uL; Basophil% 0.1 % (0-1); Hematocrit 36.9 % (40-54); Hemoglobin 11.9 g/dL (13.0-16.5); Lymphocyte % 4.9 % (19-41); Mean Corp Hgb Conc 32.2 g/dL (32-36); Mean Corpuscular Hgb 29.5 pg (27.0-32.0); Mean Corpuscular Volume 91.6 fL (80-94); Mean Platelet Vol. 9.4 fl (6.2-12.0); Monocyte# 1.05 X10^3/uL; Monocyte% 7.4 % (0-10); NRBC Flagged by Analyzer 0 % (0-5); Neutrophil # 12.43 X10^3/uL (2.7-7.7); Neutrophil % 87.2 % (47-70); Platelet Count 205 K/mm3 (150-450); RBC Distribution Width CV 14.6 % (11.6-14.6); RBC Distribution Width SD 48.6 fl (35.1-43.9); Red Blood Count 4.03 M/mm3 (4.6-6.2); White Blood Count 14.2 K/mm3 (4.4-11.0)
--- NOTE | 2019-10-31 06:22 | PCM.PN.SRG ---
Subjective: Patient complains that his night was miserable. He complains of nausea. Complains of abdominal pain. He has not had any emesis. Nursing staff did getting up and walking. This is what was difficult for him. - Physical Exam Vitals/I&O's: Vital Signs Temp Pulse Resp BP Pulse Ox 98.9 F 72 16 154/60 H 94 10/31/19 03:40 10/31/19 03:40 10/31/19 03:40 10/31/19 03:40 10/31/19 03:40 Oxygen Flow Rate (L/min) 2 Oxygen Delivery Method Room Air Weight: 271 lb Body Mass Index (BMI) 34.7 Orthostatic Vital Signs Start: 10/31/19 04:35 Freq: q24h Status: Active Protocol: Activity Type Activity Date Activity User E-Sign Co-Sign Detail Recorded Client Recorded Date Recorded By Document 10/31/19 03:40 AML [id number] 10/31/19 04:36 AML 10/31/19 03:40 Orthostatic Vitals Standing -Blood Pressure (90/60-120/80) 157/74 H -Extremity Use Left Arm -Pulse Rate (60-100) 78 Sitting -Blood Pressure (90/60-120/80) 157/70 H -Extremity Use Left Arm -Pulse Rate (60-100) 74 Lying -Blood Pressure (90/60-120/80) 154/60 H -Extremity Use Left Arm -Pulse Rate (60-100) 72 Intake and Output for Last 24 Hours 10/29/19 10/30/19 10/31/19 23:59 23:59 23:59 Intake Total 3530.17 / 3580.17 150 / 150 Balance 3530.17 / 3580.17 150 / 150 General: Alert, Oriented x3, Cooperative, No apparent distress Lungs: Clear to auscultation Abdomen: Soft, - - Wounds are clean, abdomen appropriately tender right mid abdomen, not tense Laboratory Results 10/30/19 12:52: Troponin I 0.175 H 10/30/19 17:25: WBC 16.6 H, RBC 4.38 L, Hgb 13.0, Hct 40.0, MCV 91.3, MCH 29.7, MCHC 32.5, RDW Std Deviation 47.8 H, RDW Coeff of Santhosh 14.2, Plt Count 254, MPV 9.7 10/30/19 17:25: Sodium 141, Potassium 4.0, Chloride 107, Carbon Dioxide 29.0, Anion Gap 5, BUN 22 H, Creatinine 1.17, Estim Creat Clear Calc 74.16, Est GFR (MDRD) Af Amer 81, Est GFR (MDRD) Non-Af 67, BUN/Creatinine Ratio 18.8, Glucose 122 H, Calcium 8.6, Troponin I 0.176 H 10/30/19 20:15: Troponin I 0.175 H 10/31/19 05:00: WBC 14.2 H, RBC 4.03 L, Hgb 11.9 L, Hct 36.9 L, MCV 91.6, MCH 29.5, MCHC 32.2, RDW Std Deviation 48.6 H, RDW Coeff of Santhosh 14.6, Plt Count 205, MPV 9.4, Immature Gran % (Auto) 0.400, Neut % (Auto) 87.2 H, Lymph % (Auto) 4.9 L, [place] % (Auto) 7.4, Eos % (Auto) 0.0, Baso % (Auto) 0.1, Absolute Neuts (auto) 12.4 H, Absolute Lymphs (auto) 0.70 L, Nucleated RBC % 0 Current Medications Acetaminophen (Tylenol) 650 mg PO Q6H PRN PRN PRN Reason: Pain Score 1-10/10 Last Admin: 10/30/19 15:23 Dose: 650 mg Documented by: Hydrocodone Bitart/Acetaminophen ([place] 5mg-325mg) 1 - 2 tablet PO Q4H PRN PRN PRN Reason: Pain Score 1-10/10 Last Admin: 10/30/19 17:36 Dose: 1 tablet Documented by: Amiodarone HCl (Cordarone) 200 mg PO DAILY [facility] Amlodipine Besylate (Norvasc) 5 mg PO DAILY [facility] Atorvastatin Calcium (Lipitor) 80 mg PO QHS [facility] Ezetimibe (Zetia) 10 mg PO DAILY [facility] Enoxaparin Sodium (Lovenox) 40 mg SC X1 ONE Stop: 10/31/19 08:01 Lisinopril (Zestril) 40 mg PO BID [facility] Last Admin: 10/30/19 20:18 Dose: Not Given Documented by: Minoxidil (Loniten) 5 mg PO BID [facility] Last Admin: 10/30/19 21:37 Dose: 5 mg Documented by: Morphine Sulfate () 1 - 2 mg IV Q1H PRN PRN Reason: PAIN SCORE 1-10 Last Admin: 10/31/19 04:25 Dose: 2 mg Documented by: Ondansetron HCl (Zofran) 4 mg IV Q8H PRN PRN PRN Reason: Nausea Last Admin: 10/31/19 04:07 Dose: 4 mg Documented by: Pantoprazole Sodium (Protonix) 40 mg PO DAILY [facility] Sodium Chloride () 10 - 40 ml IV UD PRN PRN Reason: SALINE FLUSH Last Admin: 10/30/19 20:12 Dose: 10 ml Documented by: Medical Necessity - Tobacco Use Smoking Status: Never smoker Tobacco Use: Non-smoker Assessment/Plan I encouraged the patient that with continued activity he will improve. Discharge orders have been written. He will require medicine review prior to discharge. He will resume his Plavix tomorrow and his Eliquis on barring any problems with bleeding. I very much appreciate hospitalist assistance with his medical care. Dwayne Bess M.D., F.A.C.S.
[2019-10-31 06:59] VITALS: PULSE 71
[2019-10-31] MEDS: HYDROmorphone 1 MG/ML Syringe IV (07:22)
[2019-10-31] MEDS: Enoxaparin 40 MG/0.4 ML Syringe SC (08:49)
[2019-10-31] MEDS: Amiodarone 200 MG Tablet PO (08:49)
[2019-10-31] MEDS: amLODIPine 5 MG Tablet PO (08:50)
[2019-10-31] MEDS: Lisinopril 40 MG Tablet PO (08:50)
[2019-10-31] MEDS: Minoxidil 2.5 MG Tablet 5 MG PO (08:50)
[2019-10-31] MEDS: Pantoprazole Sodium 40 MG Tablet PO (08:51)
[2019-10-31] MEDS: Ezetimibe 10 MG Tablet PO (08:51)
[2019-10-31] MEDS: Psyllium 1 PACKET PO (09:02)
--- NOTE | 2019-10-31 09:06 | DCINST_ITS ---
You will use the following diet at home:: No restrictions Discharge Activity: May Not Drive - for 3-5days or while taking narcotic pain m edicine. May shower in (days): 1 Call your doctor if your incision/area has: Continuous Slow Oozing, Sudden Increased Bleeding, Increased Pain/ Swelling, Increased Redness, Foul Smelling Discharge Call your doctor if you observe: Fever of 101 or Higher, Shortness of breath, Dizziness, Fainting spells Suture Line Care: Avoid Pulling/Pushing, Avoid Pinching/Bending Additional Dressing/Incision Instructions:: Change or remove dressing in 4 days. Leave steri-strips in place for 1 week. Additional Instructions: You may resume plavix tomorrow and Eliquis on Allergies/Adverse Reactions: Allergies Penicillins Allergy (Verified 10/30/19 06:44) Hives Medications to take at Discharge Clopidogrel Bisulfate [Plavix] 75 mg PO DAILY 09/03/14 Lisinopril [Zestril] 40 mg PO BID 09/03/14 amiodarone 200 mg tablet 200 mg PO DAILY tab 10/05/19 amlodipine 5 mg tablet 5 mg PO DAILY 10/05/19 atorvastatin 80 mg tablet 80 mg PO DAILY tab 10/05/19 ezetimibe 10 mg tablet 10 mg PO DAILY tab 10/05/19 furosemide 40 mg tablet 40 mg PO DAILY tab 10/05/19 metoprolol tartrate 25 mg tablet 50 mg PO BID tab 10/05/19 minoxidil 10 mg tablet 5 mg PO BID tab 10/05/19 nitroglycerin 0.4 mg sublingual tablet 0.4 mg SUBLINGUAL Q5-15M PRN tab 10/05/19 omeprazole 40 mg capsule,delayed release 40 mg PO DAILY cap 10/05/19 Apixaban [Eliquis] 5 mg PO BID 10/24/19 Hydrocodone Bitart/Apap 5-325 [[place] 5MG-325MG] 1 tab PO Q6H PRN PRN 2 Days #5 tab 10/30/19 The following prescriptions were given: Hydrocodone Bitart/Apap 5-325 [[place] 5MG-325MG] 1 tab PO Q6H PRN PRN 2 Days #5 tab PRN Reason: Pain Transmission Status: Received by [facility] Primary Care Physician: Mary Carmen Lyons MD [Primary Care Provider] - Please follow up with your Primary Care Physician in: 1 Week Test Results: Test results from this visit will be discussed in further detail at your follow- up appointment, if applicable. Please Follow Up With: Dwayne Bess MD - [phone] When: Call to make an appointment to be seen in about 10 days. Proposed Discharge Date: 10/31/19
--- NOTE | 2019-10-31 09:34 | PHA.DC.MC ---
Pharmacy Service has performed discharge medication reconciliation and counseling for this patient. 1. HYDROCODONE/ACETAMINOPHEN 5/325MG PO Q6H PRN PAIN X 2 DAYS The patient's discharge medication list was reviewed for discrepancies and discrepancies were resolved. Home Medications Clopidogrel Bisulfate [Plavix] 75 mg PO DAILY 09/03/14 Lisinopril [Zestril] 40 mg PO BID 09/03/14 amiodarone 200 mg tablet 200 mg PO DAILY tab 10/05/19 amlodipine 5 mg tablet 5 mg PO DAILY 10/05/19 atorvastatin 80 mg tablet 80 mg PO DAILY tab 10/05/19 ezetimibe 10 mg tablet 10 mg PO DAILY tab 10/05/19 furosemide 40 mg tablet 40 mg PO DAILY tab 10/05/19 metoprolol tartrate 25 mg tablet 50 mg PO BID tab 10/05/19 minoxidil 10 mg tablet 5 mg PO BID tab 10/05/19 nitroglycerin 0.4 mg sublingual tablet 0.4 mg SUBLINGUAL Q5-15M PRN tab 10/05/19 omeprazole 40 mg capsule,delayed release 40 mg PO DAILY cap 10/05/19 Apixaban [Eliquis] 5 mg PO BID 10/24/19 Hydrocodone Bitart/Apap 5-325 [[place] 5MG-325MG] 1 tab PO Q6H PRN PRN 2 Days #5 tab 10/30/19 The patient was counseled on the following discharge medications and changes in medications for homegoing were reviewed. The Reason for Use, instructions for use, and potential side effects were reviewed for all new medications. The patient's questions regarding all of their medications were answered. The patient was able to verbally demonstrate an understanding of their discharge medications.
[2019-10-31 09:40] VITALS: BP 122/64; PULSE 70; RESP 14; TEMP 36.8; O2SAT 92
--- NOTE | 2019-10-31 09:45 | PN_ITS ---
Subjective: Patient seen and examined. Feels significantly improved today. Mild abdominal tenderness. Denies further lightheadedness. - Physical Exam Vitals/I&O's: Vital Signs Temp Pulse Resp BP Pulse Ox 98.9 F 71 16 154/60 H 94 10/31/19 03:40 10/31/19 06:59 10/31/19 03:40 10/31/19 03:40 10/31/19 03:40 Oxygen Flow Rate (L/min) 2 Oxygen Delivery Method Room Air Weight: 271 lb Body Mass Index (BMI) 34.7 Orthostatic Vital Signs Start: 10/31/19 04:35 Freq: q24h Status: Active Protocol: Activity Type Activity Date Activity User E-Sign Co-Sign Detail Recorded Client Recorded Date Recorded By Document 10/31/19 03:40 AML [id number] 10/31/19 04:36 AML 10/31/19 03:40 Orthostatic Vitals Standing -Blood Pressure (90/60-120/80) 157/74 H -Extremity Use Left Arm -Pulse Rate (60-100) 78 Sitting -Blood Pressure (90/60-120/80) 157/70 H -Extremity Use Left Arm -Pulse Rate (60-100) 74 Lying -Blood Pressure (90/60-120/80) 154/60 H -Extremity Use Left Arm -Pulse Rate (60-100) 72 Intake and Output for Last 24 Hours 10/29/19 10/30/19 10/31/19 23:59 23:59 23:59 Intake Total 3530.17 / 3580.17 519.17 / 519.17 Balance 3530.17 / 3580.17 519.17 / 519.17 General: Alert, Oriented x3, Cooperative HEENT: Atraumatic, PERRLA, EOMI, Normocephalic Neck: Supple, No JVD, Negative Carotid Bruits Lungs: Clear to auscultation, Normal air movement Cardiovascular: Regular rate, No murmurs Abdomen: Bowel Sounds Present, Soft, Non Tender, Non-Distended, Obese, - - Surgical sites intact Extremities: No clubbing, No cyanosis, No edema, Capillary Refill Less than 3 Seconds Skin: No rashes, No breakdown Musculoskeletal: No Tenderness to Palpation of Joints or Extremities Neurological: Cranial nerves II-XII grossly intact, Neuro grossly intact Psych/Mental Status: Normal Affect, Appropriate Laboratory Results 10/30/19 12:52: Troponin I 0.175 H 10/30/19 17:25: WBC 16.6 H, RBC 4.38 L, Hgb 13.0, Hct 40.0, MCV 91.3, MCH 29.7, MCHC 32.5, RDW Std Deviation 47.8 H, RDW Coeff of Santhosh 14.2, Plt Count 254, MPV 9.7 10/30/19 17:25: Sodium 141, Potassium 4.0, Chloride 107, Carbon Dioxide 29.0, Anion Gap 5, BUN 22 H, Creatinine 1.17, Estim Creat Clear Calc 74.16, Est GFR (MDRD) Af Amer 81, Est GFR (MDRD) Non-Af 67, BUN/Creatinine Ratio 18.8, Glucose 122 H, Calcium 8.6, Troponin I 0.176 H 10/30/19 20:15: Troponin I 0.175 H 10/31/19 05:00: WBC 14.2 H, RBC 4.03 L, Hgb 11.9 L, Hct 36.9 L, MCV 91.6, MCH 29.5, MCHC 32.2, RDW Std Deviation 48.6 H, RDW Coeff of Santhosh 14.6, Plt Count 205, MPV 9.4, Immature Gran % (Auto) 0.400, Neut % (Auto) 87.2 H, Lymph % (Auto) 4.9 L, [place] % (Auto) 7.4, Eos % (Auto) 0.0, Baso % (Auto) 0.1, Absolute Neuts (auto) 12.4 H, Absolute Lymphs (auto) 0.70 L, Nucleated RBC % 0 Current Medications Acetaminophen (Tylenol) 650 mg PO Q6H PRN PRN PRN Reason: Pain Score 1-10 Last Admin: 10/30/19 15:23 Dose: 650 mg Documented by: Hydrocodone Bitart/Acetaminophen ([place] 5mg-325mg) 1 - 2 tablet PO Q4H PRN PRN PRN Reason: Pain Score 1-1010 Last Admin: 10/30/19 17:36 Dose: 1 tablet Documented by: Amiodarone HCl (Cordarone) 200 mg PO DAILY [facility] Last Admin: 10/31/19 08:49 Dose: 200 mg Documented by: Amlodipine Besylate (Norvasc) 5 mg PO DAILY [facility] Last Admin: 10/31/19 08:50 Dose: 5 mg Documented by: Atorvastatin Calcium (Lipitor) 80 mg PO QHS [facility] Ezetimibe (Zetia) 10 mg PO DAILY [facility] Last Admin: 10/31/19 08:51 Dose: 10 mg Documented by: Lisinopril (Zestril) 40 mg PO BID [facility] Last Admin: 10/31/19 08:50 Dose: 40 mg Documented by: Minoxidil (Loniten) 5 mg PO BID [facility] Last Admin: 10/31/19 08:50 Dose: 5 mg Documented by: Morphine Sulfate () 1 - 2 mg IV Q1H PRN PRN Reason: PAIN SCORE 1-10/10 Last Admin: 10/31/19 04:25 Dose: 2 mg Documented by: Ondansetron HCl (Zofran) 4 mg IV Q8H PRN PRN PRN Reason: Nausea Last Admin: 10/31/19 04:07 Dose: 4 mg Documented by: Pantoprazole Sodium (Protonix) 40 mg PO DAILY [facility] Last Admin: 10/31/19 08:51 Dose: 40 mg Documented by: Psyllium Hydrophilic Mucilloid (Metamucil) 1 packet PO BID [facility] Last Admin: 10/31/19 09:02 Dose: 1 packet Documented by: Sodium Chloride () 10 - 40 ml IV UD PRN PRN Reason: SALINE FLUSH Last Admin: 10/30/19 20:12 Dose: 10 ml Documented by: Medical Necessity - Tobacco Use Smoking Status: Never smoker Tobacco Use: Non-smoker Assessment/Plan 1. Postoperative lightheadedness, abnormal troponin-history of CAD with prior stents. Per outside records, patient had stress echo 09/08/2019 which was abnormal and demonstrated basal and mid inferoseptal wall worsening with stress, indicating stress-induced ischemia. Per patient, he was then evaluated at [facility] with ballooning to prior stent approximately 6 weeks ago. Enzymes did not trend. Orthostatic vitals negative. EKG without ST-T changes. Patient will resume Plavix tomorrow and Eliquis on per surgery recommendations. Suspect patient's symptoms were related to anesthesia as they have since resolved. Stable for discharge home with follow-up with primary care physician, primary quality assurance qa lab technician and Dr. Bess. 2. Status post laparoscopic cholecystectomy with cholangiogram and umbilical herniorrhaphy postop day #1-Follow up with Dr. Bess in 10 days. 3. Hypertension-stable, continue amlodipine, lisinopril, metoprolol. 4. Hyperlipidemia-continue statin. 5. Recent diagnosis paroxysmal atrial fibrillation-on amiodarone, metoprolol, Eliquis. 6. Obesity-encouraged diet and lifestyle modifications. 7. GERD-continue PPI. DVT prophylaxis-SCDs, resume Eliquis when okay per surgery This patient was seen by KYLIE Nava under the supervision of Dr. Davies.
== END 2019-10-31 06:21 | disposition home or self-care (01) ==
LOC: PCU 10-31 06:39
PROVIDERS: Internal Medicine; Physician Assistant; Admitting Provider Surgery; PCP Internal Medicine; Referring Provider Surgery; Visit Provider Surgery
PROC: (CPT 47610; principal; 2019-10-30 07:10)
DX: K80.10 Calculus of gallbladder with chronic cholecystitis without obstruction (principal); K42.0 Umbilical hernia with obstruction, without gangrene; M06.9 Rheumatoid arthritis, unspecified; I10 Essential (primary) hypertension; E78.5 Hyperlipidemia, unspecified; I25.10 Atherosclerotic heart disease of native coronary artery without angina pectoris; I48.0 Paroxysmal atrial fibrillation; K21.9 Gastro-esophageal reflux disease without esophagitis; G47.33 Obstructive sleep apnea (adult) (pediatric); J44.9 Chronic obstructive pulmonary disease, unspecified; Z79.899 Other long term (current) drug therapy; Z79.02 Long term (current) use of antithrombotics/antiplatelets; R00.1 Bradycardia, unspecified; R94.31 Abnormal electrocardiogram [ECG] [EKG]; E66.9 Obesity, unspecified; Z68.34 Body mass index [BMI] 34.0-34.9, adult
CPT/HCPCS: 47563; 49653; 36415; 74300; 76000; 80048; 84484; 85025; 85027; 87635; 88302; 88304; 93005; 96361; 96372; 96374; 96375; 96376; 99218; 99251; G2023; J7120; A4216; G0378; G0379; G0463; J2405; U0003

== ENCOUNTER 2020-02-20 06:09 | Day surgery (SDC) | payer BC, SELFPAY ==
[2020-01-23 08:11] VITALS: BMI 35.4
[2020-02-20 06:35] VITALS: BP 171/84; PULSE 47; RESP 16; TEMP 36.2; O2SAT 100; BMI 35.6
[2020-02-20] MEDS: Lactated Ringers 1,000 ML 100 ML IV (06:39)
--- NOTE | 2020-02-20 06:59 | PCM.HP.BLA ---
Problem List (1) Screening for malignant neoplasm of intestine Status: Acute History and Physical Date of Admission: 02/20/20 Intake Visit Reasons: CSCOPE Chief Complaint: C-Scope Consult [employer] Required: No Is patient in pain?: No Allergies Penicillins Allergy (Verified 01/23/20 08:12) Hives Medications Clopidogrel Bisulfate [Plavix] 75 mg PO DAILY 09/03/14 [History Confirmed 01/23/20] Lisinopril [Zestril] 40 mg PO BID 09/03/14 [History Confirmed 01/23/20] amiodarone 200 mg tablet 200 mg PO DAILY tab 10/05/19 [History Confirmed 01/23/20] amlodipine 5 mg tablet 5 mg PO DAILY 10/05/19 [History Confirmed 01/23/20] atorvastatin 80 mg tablet 80 mg PO DAILY tab 10/05/19 [History Confirmed 01/23/20] ezetimibe 10 mg tablet 10 mg PO DAILY tab 10/05/19 [History Confirmed 01/23/20] furosemide 40 mg tablet 40 mg PO DAILY tab 10/05/19 [History Confirmed 01/23/20] metoprolol tartrate 25 mg tablet 50 mg PO BID tab 10/05/19 [History Confirmed 01/23/20] minoxidil 10 mg tablet 5 mg PO BID tab 10/05/19 [History Confirmed 01/23/20] nitroglycerin 0.4 mg sublingual tablet 0.4 mg SUBLINGUAL Q5-15M PRN tab 10/05/19 [History Confirmed 01/23/20] omeprazole 40 mg capsule,delayed release 40 mg PO DAILY cap 10/05/19 [History Confirmed 01/23/20] Apixaban [Eliquis] 5 mg PO BID 10/24/19 [History Confirmed 01/23/20] FOR[facility]LY [facility], [facility] Medical History Cholelithiasis with chronic cholecystitis (Chronic) COPD (chronic obstructive pulmonary disease) (Chronic) CAD (coronary artery disease) (Acute) Atrial fibrillation (Acute) severe degenerative arthritis of right hip (Chronic) Rheumatoid arthritis (Chronic) Obstructive sleep apnea syndrome (Chronic) history of ischemic stroke (Chronic) HTN (hypertension) (Chronic) Hyperlipidemia (Chronic) Esophageal reflux (Chronic) Coronary atherosclerosis of [place] coronary vessel (Chronic) Surgical History Hx of cholecystectomy (Acute) History of colonoscopy (Acute ~2014) History of esophagogastroduodenoscopy (EGD) (Acute ~2015) History of knee joint replacement (Acute) History of total right hip arthroplasty (Acute) History of inguinal hernia repair (Acute) History of left shoulder replacement (Acute) History of total left hip arthroplasty (Acute) History of coronary angioplasty (Acute) History of heart artery stent (Acute) History of cardiac catheterization (Acute) Family History Sister Cancer ovarian Brother Diabetes Social History (Updated 01/23/20 @ 08:[address] Dwayne Bess MD) Smoking Status: Never smoker HPI HPI HPI: SHANNON OLSON, is a 64 M who presents to the office today for surgical consultation regarding a screening colonoscopy. His last one was 10 years ago. He denies fever or chills or sweats or nausea or vomiting. He thinks sometimes his stools darker but that is nonspecific. Stools are slightly looser since his cholecystectomy of October. He states that the cholecystectomy took quite a bit out of him but he was acutely inflamed at that time. On October 30, 2019 I performed a laparoscopic cholecystectomy on him for chronic cholecystitis cholelithiasis. He had a challenging course had to be admitted overnight because of pain. He has a significant coronary history. He is on amiodarone and apixaban and clopidogrel and atorvastatin and acetamide and metoprolol and furosemide HPI HPI HPI: SHANNON OLSON, is a 64 M who presents to the office today for ROS General General: Yes weight change and fatigue; no appetite, colon cancer, breast cancer or weakness HEENT HEENT: No difficulty swallowing, eye injury, eye surgery, swollen glands or hoarseness Endo Endocrine: No thyroid disease, diabetes mellitus, thyroid cancer, Hair loss, heat intolerance or cold intolerance Skin Skin: No rash or changing moles Breast Breast: No left breast lump, right breast lump, nipple discharge, breast pain, abnormal mammogram, abnormal US or breast enlargement Musc Musculoskeletal: Yes rheumatoid arthritis; no back problems, arthritis, gout or joint pain Cardio Cardiovascular: Yes heart disease, atrial fibrillation, high blood pressure, heart attack and heart stent; no murmur, pacemaker, palpitations, shortness of breat with exertion or chest pain Psych Psychiatric: Yes depression; no anxiety or hearing voices Resp Respiratory: No shortness of breath, Yes sleep apnea, No cough, No COPD, No asthma, No emphysema, No wheezing Gastro Gastrointestinal: No abdominal pain, No nausea or vomiting, Yes diarrhea, No constipation, No blood in stool, No acid reflux, No hemorrhoids, No ulcers, No gallbladder problem, No black,tarry stools Flip Hematologic: Yes blood thinners, No blood disorders, No bleeding, No anemia, No blood clots Neuro Neurologic: No system reviewed and no additional complaints, except as docu, No as per HPI, No abnormal walking, No abnormal hearing, No abnormal movements, No abnormal speech, No behavioral changes, No burning sensations, No confusion, No seizure-like activity, No unsteadiness, No dizziness, No localized weakness, No frequent falls, No headache(s), No lack of coordination, No loss of vision, No memory loss, Yes numbness, No other visual disturbances, No radiating pain, No restless legs, No sensory deficit, No fainting, Yes tingling, No tremor(s), No weakness, No other (stroke) Exam Const General: cooperative, comfortable, no acute distress Nutritional Appearance: obese Orientation: awake HENAL Head: normal to inspection Chest Breast Palpation: No nipple discharge Resp Effort & Inspection: normal respiratory effort Auscultation: clear to auscultation bilaterally Cardio Rate: regular rate Rhythm: regular rhythm Heart Sounds: no murmurs GI Palpation: soft, no hepatosplenomegaly Auscultation: normal bowel sounds Musc Cervical Spine: normal cervical lordosis Neuro General: alert Extrem General: no calf tenderness Psych Affect: normal affect Assessment & Plan Problems 1. Screening for malignant neoplasm of intestine Z12.10 Plan I recommended the patient screening colonoscopy with possible biopsy or polypectomy is indicated. He does have increased cardiac risk but he was able to tolerate a challenging laparoscopic cholecystectomy. I will have him hold his clopidogrel and apixaban 2 days preprocedure. We will have monitored anesthesia care. He is aware of the technique, benefit, risk and alternatives. There is no family history of colon cancer. Previous colonoscopy September 2009. We will schedule and proceed at his discretion. I appreciate the ongoing opportunity of assisting with her surgical care. Copy: Dr. Mary Carmen Bess M.D., F.A.C.S. Coding Level of Care Code Off vis,est,level 2 Diagnoses Screening for malignant neoplasm of intestine Z12.10 Comment Unrelated consultation during her postoperative period I have re-examined the patient. There are no clinical changes since date of exam. Procedure Criteria Procedure Type: Elective COVID Risk Discussion: The surgeon/proceduralist and patient have discussed in detail the risk of exposure to and/or potential harm posed by the COVID-19 virus with having a surgery/procedure at this time versus the risk of delaying the surgery/procedure. It is not possible to know either the risk of delaying the surgery or procedure or chance of getting an infection with perfect accuracy, but a joint decision was made between the patient and the surgeon/proceduralist to proceed at this time with the scheduled surgery/procedure as indicated on the consent form.
[2020-02-20 07:30] VITALS: BP 131/58; BP 150/60; PULSE 49; RESP 16; TEMP 36.4; O2SAT 96
--- NOTE | 2020-02-20 07:31 | OP.COLON_ITS ---
Patient Name: Timo Dickerson Procedure Date: 02/20/2020 7:00 AM Date of : 1955 Age: 64 Procedure: Colonoscopy Indications: Screening for colorectal malignant neoplasm Providers: Dwayne Bess MD Referring MD: Mary Carmen Lyons Medicines: See the Anesthesia note for documentation of the administered medications Patient Profile: Last Colonoscopy: September 2009. Complications: No immediate complications. Procedure: Pre-Anesthesia Assessment: - Prior to the procedure, a History and Physical was performed, and patient medications and allergies were reviewed. The patient's tolerance of previous anesthesia was also reviewed. The risks and benefits of the procedure and the sedation options and risks were discussed with the patient. All questions were answered, and informed consent was obtained. Prior Anticoagulants: The patient has taken Eliquis (apixaban), last dose was 2 days prior to procedure. ASA Grade Assessment: II - A patient with mild systemic disease. After reviewing the risks and benefits, the patient was deemed in satisfactory condition to undergo the procedure. After I obtained informed consent, the scope was passed under direct vision. Throughout the procedure, the patient's blood pressure, pulse, and oxygen saturations were monitored continuously. The pediatric colonoscope was introduced through the anus and advanced to the cecum, identified by appendiceal orifice and ileocecal valve. The colonoscopy was performed without difficulty. The patient tolerated the procedure well. The quality of the bowel preparation was good. The ileocecal valve and the appendiceal orifice were photographed. Scope In: 7:09:01 AM Scope Withdrawal Time 0 hours 9 minutes 13 seconds Scope Out: 7:25:50 AM Total Procedure Duration Time 0 hours 16 minutes 49 seconds Findings: The digital rectal exam findings include non-thrombosed external hemorrhoids, non-thrombosed internal hemorrhoids and internal hemorrhoids that prolapse with straining, but spontaneously regress to the resting position (Grade II). Pertinent negatives include normal prostate (size, shape, and consistency). A few diverticula were found in the sigmoid colon. The sigmoid colon was moderately tortuous. Advancing the scope required using manual pressure. Impression: - Non-thrombosed external hemorrhoids, non-thrombosed internal hemorrhoids and internal hemorrhoids that prolapse with straining, but spontaneously regress to the resting position (Grade II) found on digital rectal exam. - Diverticulosis in the sigmoid colon. - Tortuous colon. - No specimens collected. Recommendation: - Discharge patient to home. - Resume previous diet. - Continue present medications. - Repeat colonoscopy in 10 years for screening purposes. Procedure Code(s): --- Professional --- 40731, Colonoscopy, flexible; diagnostic, including collection of specimen(s) by brushing or washing, when performed (separate procedure) Diagnosis Code(s): --- Professional --- Z12.11, Encounter for screening for malignant neoplasm of colon K64.1, Second degree hemorrhoids K64.4, Residual hemorrhoidal skin tags K57.30, Diverticulosis of large intestine without perforation or abscess without bleeding Q43.8, Other specified congenital malformations of intestine CPT copyright 2017 [employer]. All rights reserved. The codes documented in this report are preliminary and upon stencil maker review may be revised to meet current compliance requirements. Dwayne Bess MD 02/20/2020 7:30:51 AM This report has been signed electronically. Number of Addenda: 0 Note Initiated On: 02/20/2020 7:00 AM
--- NOTE | 2020-02-20 07:31 | OP.CCLET_ITS ---
02/20/2020 Mary Carmen Lyons [address] [place] [address] Re : Colonoscopy procedure for Timo Dickerson Dear Dr. Lyons This procedure was performed on Thursday, February 20, 2020. My impressions and recommendations are as follows: Impressions : - Non-thrombosed external hemorrhoids, non-thrombosed internal hemorrhoids and internal hemorrhoids that prolapse with straining, but spontaneously regress to the resting position (Grade II) found on digital rectal exam. - Diverticulosis in the sigmoid colon. - Tortuous colon. - No specimens collected. Recommendations : - Discharge patient to home. - Resume previous diet. - Continue present medications. - Repeat colonoscopy in 10 years for screening purposes. My findings are described in the full procedure note, which is enclosed. If I can be of further assistance, please feel free to contact me at Doctor phone number(s): Work: . Sincerely, Dwayne Bess MD 02/20/2020 7:30:51 AM This report has been signed electronically.
[2020-02-20 07:35] VITALS: BP 119/49; BP 150/60; PULSE 48; RESP 16; O2SAT 96
[2020-02-20 07:40] VITALS: BP 122/54; BP 150/60; PULSE 51; RESP 16; O2SAT 99
[2020-02-20 07:45] VITALS: BP 141/76; BP 150/60; PULSE 48; RESP 16; TEMP 36.4; O2SAT 95
[2020-02-20 08:20] VITALS: BP 150/60
== END 2020-02-20 08:28 | disposition home or self-care (01) ==
LOC: EN 06:09 → AC 06:09
PROVIDERS: Anesthesiology; PCP Internal Medicine; Referring Provider Internal Medicine; Visit Provider Surgery
PROC: 0DJD8ZZ Inspection of Lower Intestinal Tract, Via Natural or Artificial Opening Endoscopic (ICD-10-PCS; CPT 45378; principal; 2020-02-20 07:10)
DX: Z12.11 Encounter for screening for malignant neoplasm of colon (principal); K57.30 Diverticulosis of large intestine without perforation or abscess without bleeding; K64.1 Second degree hemorrhoids; J44.9 Chronic obstructive pulmonary disease, unspecified; I25.10 Atherosclerotic heart disease of native coronary artery without angina pectoris; I48.91 Unspecified atrial fibrillation; M06.9 Rheumatoid arthritis, unspecified; I10 Essential (primary) hypertension; K21.9 Gastro-esophageal reflux disease without esophagitis; E66.9 Obesity, unspecified; E78.5 Hyperlipidemia, unspecified; I25.2 Old myocardial infarction; Z95.1 Presence of aortocoronary bypass graft; Z68.35 Body mass index [BMI] 35.0-35.9, adult; Z11.59 Encounter for screening for other viral diseases; Z79.02 Long term (current) use of antithrombotics/antiplatelets; Z79.899 Other long term (current) drug therapy
CPT/HCPCS: 45378; 87635; C9803; J7120; U0003

== ENCOUNTER 2020-04-01 14:58 | Inpatient (IN) | payer BC, SELFPAY ==
[2020-04-01] VITALS (12 sets, daily range): BP systolic 120–162; BP diastolic 64–86; PULSE 61–66; RESP 18–26; TEMP 36.4–39; O2SAT 90–97; BMI 37.6; BMI 34.4; BMI 34.5
--- NOTE | 2020-04-01 15:12 | CT_ITS ---
STUDY: CTA CHEST REASON FOR EXAM: Male, 64 years old. Dyspnea. Fever and chest pain. COVID 19 positive. History of cardiac catheterization, coronary artery stents hypertension cholecystectomy and TIAs. RADIATION DOSAGE (If Supplied By Facility): CTDIvol = ( 18.6 ) mGy, DLP = ( 476.14 ) mGycm TECHNIQUE: The examination was performed with the intravenous administration of IV 100mL Isovue-370. Post-processing of the angiographic images was performed, with multiplanar reformation and 3D reconstruction. Individualized dose optimization techniques were used for this CT. COMPARISON: 06/02/2014 FINDINGS: Normal enhancement of the main pulmonary artery and right and left pulmonary arteries. Normal enhancement of the bilateral peripheral pulmonary arteries. There is no demonstrated pulmonary embolism. Normal thoracic aorta and visualized great vessels. There is no demonstrated aortic dissection. Normal heart and pericardium. There are calcifications of the coronary arteries. Nonspecific subcentimeter mediastinal lymphadenopathy. Normal hilar regions. Normal visualized trachea and bronchi. The lungs are well expanded. There is patchy groundglass infiltrates throughout both lungs most marked in the lower lobes. No focal consolidation or mass. Normal pleura. Normal chest wall structures. There is a right artificial shoulder. There are marked degenerative changes of the left shoulder. There are degenerative changes of thoracic spine. Normal visualized upper abdomen. CT/CTA Chest W/WO Contrast IMPRESSION: 1. No evidence of pulmonary embolus. 2. No aortic dissection or aneurysm. 3. Patchy peripheral groundglass infiltrates consistent with but not diagnostic of COVID 19 pneumonia. 4. Degenerative changes of the drastic spine. Electronically Signed: Scotty Aleman DO at 16:25 EST Tel [phone], Service support ,
--- NOTE | 2020-04-01 15:12 | EKG12_ITS ---
Test Reason : Blood Pressure : / mmHG Vent. Rate : 072 BPM Atrial Rate : 072 BPM P-R Int : 172 ms QRS Dur : 100 ms QT Int : 432 ms P-R-T Axes : 033 000 -18 degrees QTc Int : 473 ms Sinus rhythm with occasional Premature ventricular complexes Inferior infarct , age undetermined , cannot be excluded Abnormal ECG Confirmed by LULU ALVARADO, CATRACHITO ([id number]), department editor GIA LING ([id number]) on 04/03/2020 8:47:05 AM Referred By: Confirmed By:CATRACHITO LAWSON MD
--- NOTE | 2020-04-01 15:14 | ED.DCSUM_ITS ---
- ER Visit Summary Date of Service: 04/01/20 Chief Complaint: Chest pain, shortness of breath and fever History of Present Illness: The patient is a 64 M who has the above symptoms. He tested positive for coronavirus 10 days ago. He has been quarantining at home. However he is chest has become more tight and he has become more short of breath over the last couple of days. He is not on home oxygen. Denies any history of any lung issues but has coronary disease and has 18 stents. He has been coughing. He denies any fevers at home but has one here currently. No nausea vomiting or diarrhea. According to his records, he is on Eliquis for atrial fibrillation. Physical Examination: Vital signs reviewed. His temperature is 102.2 ?F, heart rate 66, respiratory 26. He is 90% on room air. HEENT exam unremarkable. Heart is regular rate and rhythm without murmurs. Lungs are clear to auscultation. Abdomen is soft and nontender. Extremities reveal no edema. Peripheral pulses are equal. Skin exam normal. Neurologic exam normal. Test Results: EKG is sinus rhythm with a rate of 72. PVCs noted. There are other nonspecific ST-T wave changes. CT scan of the chest with contrast shows infiltrates which are consistent with COVID-19. There are no pulmonary emboli. Creatinine is 1.36. Troponin 0 0.224. Emergency Department Course and Treatment: Patient was given Tylenol for his fever. I also gave him aspirin. He does have elevated troponin and with his coronary disease I feel he should be admitted to the hospital. I discussed with the admitting provider who discussed with the patient and the patient will be admitted at this hospital. Treatment Plan: [] Disposition: Admit Impression: Chest pain, COVID-19, elevated troponin This note was generated with [employer] dictation software. It may contain incorrect words, spelling, and punctuation that were not noted in review of the chart prior to signing ED Disposition - Plan for ED Patient: Referrals: Mary Carmen Lyons MD [Primary Care Provider] -
[2020-04-01 15:25] LABS: Absolute Lymphocyte Count 0.61 X10^3/uL (0.83-4.51); Basophil# 0.01 X10^3/uL; Basophil% 0.2 % (0-1); Hematocrit 41.3 % (40-54); Hemoglobin 13.2 g/dL (13.0-16.5); Lymphocyte # 0.61 X10^3/ul (4.0); Lymphocyte % 12.1 % (19-41); Mean Corpuscular Hgb 29.1 pg (27.0-32.0); Mean Platelet Vol. 9.4 fl (6.2-12.0); Monocyte# 0.41 X10^3/uL; Monocyte% 8.1 % (0-10); NRBC Flagged by Analyzer 0 % (0-5); Neutrophil # 3.98 X10^3/uL (2.7-7.7); Platelet Count 200 K/mm3 (150-450); RBC Distribution Width CV 13.1 % (11.6-14.6); RBC Distribution Width SD 43.9 fl (35.1-43.9); Red Blood Count 4.54 M/mm3 (4.6-6.2)
[2020-04-01 15:43] LABS: Anion Gap 4 (5-15); BUN 17 mg/dL (7-18); BUN/Creat Ratio 12.5 RATIO (10-20); Calcium,Total 8.6 mg/dL (8.5-10.1); Chloride 111 mmol/L (98-107); Creatinine, Serum 1.36 mg/dL (0.70-1.30); EST Glomerular Filtration Rate 56 mL/min (>60); Est Glom Filt Rate - Afr Amer 68 mL/min (>60); Estimated Creatinine Clearance 60.23 ml/min; Glucose 105 mg/dL (74-106); Potassium 3.6 mmol/L (3.5-5.1); Sodium Level 143 mmol/L (136-145)
[2020-04-01] MEDS: Aspirin 81 MG TAB.CHEW 324 MG PO (16:13)
[2020-04-01] MEDS: Acetaminophen 325 MG Tablet 650 MG PO (16:13)
--- NOTE | 2020-04-01 18:52 | PCM.HP.STD ---
Problem List (1) Chest pain Status: Acute (2) COVID-19 Status: Acute (3) Screening for malignant neoplasm of intestine Status: Inactive (4) Hx of cholecystectomy Status: Chronic Comment: 10/30/19 (5) Cholelithiasis with chronic cholecystitis Status: Chronic Qualifiers: (6) History of colonoscopy Status: Chronic (7) History of esophagogastroduodenoscopy (EGD) Status: Chronic (8) History of knee joint replacement Status: Chronic (9) History of total right hip arthroplasty Status: Chronic (10) History of inguinal hernia repair Status: Chronic (11) History of left shoulder replacement Status: Chronic (12) History of total left hip arthroplasty Status: Chronic (13) History of coronary angioplasty Status: Chronic (14) History of heart artery stent Status: Chronic (15) History of cardiac catheterization Status: Chronic (16) COPD (chronic obstructive pulmonary disease) Status: Chronic (17) CAD (coronary artery disease) Status: Chronic (18) Atrial fibrillation Status: Chronic (19) severe degenerative arthritis of right hip Status: Chronic (20) Rheumatoid arthritis Status: Chronic (21) Obstructive sleep apnea syndrome Status: Chronic (22) history of ischemic stroke Status: Chronic (23) HTN (hypertension) Status: Chronic (24) Hyperlipidemia Status: Chronic (25) Esophageal reflux Status: Chronic (26) Coronary atherosclerosis of [place] coronary vessel Status: Chronic History of Present Illness Date of Admission: 04/01/20 Chief Complaint: chest pain and shortness of breath The patient is a 64 year old M presents with chest pain and shortness of breath. Patient was diagnosed 10 days ago with COVID-19. Has been coughing and has been having some anterior chest pain. Patient has had an extensive history of coronary artery disease and has had what sounds like ST ovation myocardial infarction. States the chest pain is different from that. Does state that it is worse with cough. He presented to the emergency room and had a troponin that came back at 0.224. He did receive aspirin and acetaminophen in the emergency room. Patient's pulse ox was 90% on room air was placed on oxygen while he was here. CT angiogram of chest was performed and showed bilateral patchy infiltrates. The hospital service was contacted for admission in regards to the COVID-19 and also the chest pain and elevated troponins. [] Past Medical History Past Medical History (Chronic Problems): Chronic Problems (Last Reviewed 01/23/20 @ 08:11 by Sandrine Kaur) Hx of cholecystectomy (Chronic) 10/30/19 Cholelithiasis with chronic cholecystitis (Chronic) History of colonoscopy (Chronic ~2014) History of esophagogastroduodenoscopy (EGD) (Chronic ~2014) History of knee joint replacement (Chronic) History of total right hip arthroplasty (Chronic) History of inguinal hernia repair (Chronic) History of left shoulder replacement (Chronic) History of total left hip arthroplasty (Chronic) History of coronary angioplasty (Chronic) History of heart artery stent (Chronic) History of cardiac catheterization (Chronic) COPD (chronic obstructive pulmonary disease) (Chronic) CAD (coronary artery disease) (Chronic) Atrial fibrillation (Chronic) severe degenerative arthritis of right hip (Chronic) Rheumatoid arthritis (Chronic) Obstructive sleep apnea syndrome (Chronic) history of ischemic stroke (Chronic) HTN (hypertension) (Chronic) Hyperlipidemia (Chronic) Esophageal reflux (Chronic) Coronary atherosclerosis of [place] coronary vessel (Chronic) Medical History: Medical History (Last Reviewed 04/01/20 @ 18:[address] Cooper Ward, DO) Screening for malignant neoplasm of intestine (Acute) Z12.10 Cholelithiasis with chronic cholecystitis (Chronic) K80.10 COPD (chronic obstructive pulmonary disease) (Chronic) J44.9 CAD (coronary artery disease) (Acute) I25.10 Atrial fibrillation (Acute) I48.91 severe degenerative arthritis of right hip (Chronic) Rheumatoid arthritis (Chronic) M06.9 Obstructive sleep apnea syndrome (Chronic) G47.33 history of ischemic stroke (Chronic) HTN (hypertension) (Chronic) I10 Hyperlipidemia (Chronic) E78.5 Esophageal reflux (Chronic) K21.9 Coronary atherosclerosis of [place] coronary vessel (Chronic) I25.10 Allergies Penicillins Allergy (Verified 04/01/20 15:00) Hives Home Medications: Ambulatory Orders Medication Instructions Recorded Clopidogrel Bisulfate [Plavix] 75 mg PO DAILY 09/03/14 amlodipine 5 mg tablet 5 mg PO DAILY 10/05/19 atorvastatin 80 mg tablet 80 mg PO DAILY tab 10/05/19 ezetimibe 10 mg tablet 10 mg PO DAILY tab 10/05/19 furosemide 40 mg tablet 40 mg PO DAILY tab 10/05/19 minoxidil 10 mg tablet 5 mg PO BID tab 10/05/19 nitroglycerin 0.4 mg sublingual 0.4 mg SUBLINGUAL Q5-15M PRN tab 10/05/19 tablet Apixaban [Eliquis] 5 mg PO BID 10/24/19 Amiodarone HCl [Pacerone] 200 mg PO DAILY 04/01/20 Lisinopril 40 mg PO DAILY 04/01/20 Metoprolol Tartrate 50 mg PO BID 04/01/20 Surgical History: Surgical History (Last Reviewed 04/01/20 @ 18:[address] Cooper Ward DO) Hx of cholecystectomy (Chronic) Z90.49 10/30/19 History of colonoscopy (Chronic) Onset Date: ~2014 Z98.890 History of esophagogastroduodenoscopy (EGD) (Chronic) Onset Date: ~2014 Z98.890 History of knee joint replacement (Chronic) Z96.659 History of total right hip arthroplasty (Chronic) Z96.641 History of inguinal hernia repair (Chronic) Z98.890, Z87.19 History of left shoulder replacement (Chronic) Z96.612 History of total left hip arthroplasty (Chronic) Z96.642 History of coronary angioplasty (Chronic) Z98.61 History of heart artery stent (Chronic) Z95.5 History of cardiac catheterization (Chronic) Z98.890 Smoking Status: Never smoker Tobacco Use: Non-smoker - *Family History Maternal Family History: Family History (Last Reviewed 04/01/20 @ 18:[address] Cooper Ward DO) Sister Cancer Brother Diabetes Review of Systems Constitutional: Reports: Malaise. Denies: Anorexia, Chills, Fever Eyes: Denies: Blurred vision, Double vision HEENT: Denies: Head Aches, Sinus Congestion, Sinus Drainage Cardiovascular: Reports: Chest Pain. Denies: Edema Respiratory: Reports: Cough, Shortness of Breath Gastrointestinal: Denies: Abdominal Pain, Nausea, Vomiting Genitourinary: Denies: Dysuria Comment: All review of systems were negative except as mentioned above in the history of present illness and the other review of systems. VTE Information - Inpt Only VTE Present on Admission: No VTE Mechan Device Prophylaxis: None VTE Pharm Prophylaxis ordered?: No Reason prophylaxis not ordered:: Treatment Not Indicated - Physical Exam Vitals/I&O's: Vital Signs Temp Pulse Resp BP Pulse Ox 36.6 C 61 20 H 135/71 H 96 04/01/20 18:31 04/01/20 18:31 04/01/20 18:31 04/01/20 18:31 04/01/20 18:31 Oxygen Flow Rate (L/min) 2 Oxygen Delivery Method Nasal Cannula Weight: 123.377 kg Body Mass Index (BMI) 34.4 General: Alert, Cooperative, No apparent distress HEENT: Atraumatic, Normocephalic Oral: Moist Mucosa, No Gingival or Mucosal Lesions/ Ulcerations Neck: No Nodes, Thyroid Normal Size and Texture Lungs: Clear to auscultation, Normal air movement, No rhonchi, No wheeze, No rales Cardiovascular: Regular rate, Regular Rhythm, Normal S1, Normal S2, No murmurs Abdomen: Bowel Sounds Present, Soft, Non Tender, Non-Distended, No Hepato-splenomegaly Extremities: No edema, No Calf Tenderness Skin: No rashes, No breakdown Musculoskeletal: No Tenderness to Palpation of Joints or Extremities, No Muscle Wasting Psych/Mental Status: Normal Affect, Appropriate Laboratory Results 04/01/20 15:15: WBC 5.0, RBC 4.54 L, Hgb 13.2, Hct 41.3, MCV 91.0, MCH 29.1, MCHC 32.0, RDW Std Deviation 43.9, RDW Coeff of [place]anth[place] 13.1, Plt Count 200, MPV 9.4, Immature Gran % (Auto) 0.600, Neut % (Auto) 79.0 H, Lymph % (Auto) 12.1 L, [place] % (Auto) 8.1, Eos % (Auto) 0.0, Baso % (Auto) 0.2, Absolute Neuts (auto) 4.0, Absolute Lymphs (auto) 0.61 L, Nucleated RBC % 0 04/01/20 15:15: Sodium 143, Potassium 3.6, Chloride 111 H, Carbon Dioxide 28.0, Anion Gap 4 L, BUN 17, Creatinine 1.36 H, Estim Creat Clear Calc 60.23, Est GFR (MDRD) Af Amer 68, Est GFR (MDRD) Non-Af 56 L, BUN/Creatinine Ratio 12.5, Glucose 105, Calcium 8.6, Troponin I 0.224 H Current Medications Sodium Chloride (0.9% Saline Lock 10 Ml Syringe) 10 - 40 ml IV UD PRN PRN Reason: SALINE FLUSH Assessment/Plan All Active Problems (Last Reviewed 01/23/20 @ 08:11 by Sandrine Kaur) Chest pain (Acute) COVID-19 (Acute) 1. Acute COVID-19 pneumonia: Patchy infiltrates consistent with COVID-19. Will initiate the dexamethasone. Consultation to infectious disease for recommendations on additional therapies. 2. Elevated troponins: May be more demand versus chronic changes as patient has had persistently elevated troponins in the past. Patient already anticoagulated. Discussed with the patient that if his troponins start going upwards, given his extensive cardiac history performed at [facility], that it may be advisable for him to be transferred there if such an event were to occur. Gave him the option to be transferred directly from the emergency room or to stay in the hospital and we can see how he proceeds during this hospitalization. He would prefer to stay here which I feel is reasonable. Patient states that he has had a recent cardiac catheterization that showed some in-stent stenosis that was opened up with his manager sterile. We will request records from that procedure. 3. Chest pain: Atypical. Patient himself explains that it is atypical from when he has had true cardiac events in the past. This may be more musculoskeletal though it was not necessary reproducible on this exam. 4. Atrial fibrillation: Currently rate controlled. Continue with apixaban, metoprolol tartrate, amiodarone 5. History of coronary artery disease: Continue with clopidogrel, metoprolol and lisinopril. 6. VTE prophylaxis: Not indicated as patient is already anticoagulated on apixaban. Inpatient E&M: 44390 Init Hosp L3
--- NOTE | 2020-04-01 18:54 | EKG12_ITS ---
Test Reason : CP ADMISSION Blood Pressure : / mmHG Vent. Rate : 058 BPM Atrial Rate : 058 BPM P-R Int : 174 ms QRS Dur : 112 ms QT Int : 474 ms P-R-T Axes : 031 003 -14 degrees QTc Int : 465 ms Sinus bradycardia Inferior infarct , age undetermined, cannot be excluded Nonspecific T wave abnormality Abnormal ECG Confirmed by LULU ALVARADO, CATRACHITO ([id number]), features editor GIA LING ([id number]) on 04/04/2020 12:54:44 PM Referred By: DAYNA Confirmed By:CATRACHITO LAWSON MD
[2020-04-01] MEDS: Atorvastatin Calcium 80 MG Tablet PO (20:42)
[2020-04-01] MEDS: dexAMETHasone 4 MG Tablet 6 MG PO (20:42)
[2020-04-01] MEDS: Metoprolol Tartrate 50 MG Tablet PO (20:42)
[2020-04-01] MEDS: Minoxidil 2.5 MG Tablet 5 MG PO (20:42)
[2020-04-01] MEDS: APIXABAN 5 MG TABLET PO (20:42)
[2020-04-02] VITALS (14 sets, daily range): BP systolic 139–149; BP diastolic 79–88; PULSE 56–74; RESP 16–18; TEMP 36.5–36.8; O2SAT 94–98
[2020-04-02 06:44] LABS: Absolute Lymphocyte Count 0.42 X10^3/uL (0.83-4.51); Absolute Neutrophil Count 4.8 X10^3/uL (2.0-7.7); Hematocrit 42.1 % (40-54); Hemoglobin 13.3 g/dL (13.0-16.5); Lymphocyte # 0.42 X10^3/ul (4.0); Lymphocyte % 7.7 % (19-41); Mean Corp Hgb Conc 31.6 g/dL (32-36); Mean Corpuscular Hgb 28.7 pg (27.0-32.0); Mean Corpuscular Volume 90.9 fL (80-94); Mean Platelet Vol. 9.6 fl (6.2-12.0); Monocyte# 0.19 X10^3/uL; Monocyte% 3.5 % (0-10); NRBC Flagged by Analyzer 0 % (0-5); Neutrophil # 4.82 X10^3/uL (2.7-7.7); Neutrophil % 88.3 % (47-70); POSITIVE DIFFERENTIAL YES; Platelet Count 198 K/mm3 (150-450); RBC Distribution Width CV 13.2 % (11.6-14.6); RBC Distribution Width SD 44.5 fl (35.1-43.9); Red Blood Count 4.63 M/mm3 (4.6-6.2); White Blood Count 5.5 K/mm3 (4.4-11.0)
[2020-04-02 07:07] LABS: Differential Indicated SCAN CRITERIA MET
[2020-04-02 07:11] LABS: Differential Comment SCANNED
[2020-04-02 07:13] LABS: ALB/GLOB Ratio 0.7 RATIO (0.9-2.4); AST(SGOT) 19 U/L (15-37); Alanine Aminotransfer ALT/SGPT 53 U/L (16-61); Alkaline Phosphatase 99 U/L (45-117); Anion Gap 2 (5-15); BUN 22 mg/dL (7-18); BUN/Creat Ratio 16.8 RATIO (10-20); Calcium,Total 8.4 mg/dL (8.5-10.1); Chloride 114 mmol/L (98-107); Creatinine, Serum 1.31 mg/dL (0.70-1.30); EST Glomerular Filtration Rate 59 mL/min (>60); Est Glom Filt Rate - Afr Amer 71 mL/min (>60); Estimated Creatinine Clearance 66.23 ml/min; Globulin 4.2 g/dL (2.2-4.2); Glucose 176 mg/dL (74-106); Protein, Total 7.2 g/dL (6.4-8.2); Sodium Level 143 mmol/L (136-145)
[2020-04-02] MEDS: Metoprolol Tartrate 50 MG Tablet PO ×2 (08:54→20:30)
[2020-04-02] MEDS: Ezetimibe 10 MG Tablet PO (08:54)
[2020-04-02] MEDS: APIXABAN 5 MG TABLET PO ×2 (08:54→20:30)
[2020-04-02] MEDS: Lisinopril 40 MG Tablet PO (08:55)
[2020-04-02] MEDS: Amiodarone 200 MG Tablet PO (08:55)
[2020-04-02] MEDS: dexAMETHasone 4 MG Tablet 6 MG PO (08:55)
[2020-04-02] MEDS: Clopidogrel Bisulfate 75 MG Tablet PO (08:55)
[2020-04-02] MEDS: Furosemide 40 MG Tablet PO (08:55)
[2020-04-02] MEDS: Minoxidil 2.5 MG Tablet 5 MG PO ×2 (08:55→20:30)
[2020-04-02] MEDS: Aspirin E.C. 81 MG Tablet PO (08:55)
[2020-04-02] MEDS: amLODIPine 5 MG Tablet PO (08:56)
[2020-04-02] MEDS: guaiFENesin 10 ML UDC (200MG/10ML) 20 ML PO (08:57)
--- NOTE | 2020-04-02 11:15 | PCM.HP.ID ---
Problem List (1) COVID-19 Status: Acute Reason for Consult: covid Consulted by: Dr. Davies History of Present Illness: The patient is a 64 year old M with h/o CAD, presented with sx since 03/23, started with weakness, dizziness, some syncope, then developed cough, loss of taste and smell, aches. Had several days of worsening dyspnea and chest tightness, came to ED. Lives alone, thinks he got it from his brother. Full ROS performed and neg except as noted above. - Medical History Past Medical History (Chronic Problems): Chronic Problems (Last Reviewed 04/01/20 @ 18:[address] Cooper Ward, DO) Hx of cholecystectomy (Chronic) 10/30/19 Cholelithiasis with chronic cholecystitis (Chronic) History of colonoscopy (Chronic ~2014) History of esophagogastroduodenoscopy (EGD) (Chronic ~2014) History of knee joint replacement (Chronic) History of total right hip arthroplasty (Chronic) History of inguinal hernia repair (Chronic) History of left shoulder replacement (Chronic) History of total left hip arthroplasty (Chronic) History of coronary angioplasty (Chronic) History of heart artery stent (Chronic) History of cardiac catheterization (Chronic) COPD (chronic obstructive pulmonary disease) (Chronic) CAD (coronary artery disease) (Chronic) Atrial fibrillation (Chronic) severe degenerative arthritis of right hip (Chronic) Rheumatoid arthritis (Chronic) Obstructive sleep apnea syndrome (Chronic) history of ischemic stroke (Chronic) HTN (hypertension) (Chronic) Hyperlipidemia (Chronic) Esophageal reflux (Chronic) Coronary atherosclerosis of [place] coronary vessel (Chronic) Allergies/Adverse Reactions: Allergies Penicillins Allergy (Verified 04/01/20 15:00) Hives Home Medications: Ambulatory Orders Medication Instructions Recorded Clopidogrel Bisulfate [Plavix] 75 mg PO DAILY 09/03/14 amlodipine 5 mg tablet 5 mg PO DAILY 10/05/19 atorvastatin 80 mg tablet 80 mg PO DAILY tab 10/05/19 ezetimibe 10 mg tablet 10 mg PO DAILY tab 10/05/19 furosemide 40 mg tablet 40 mg PO DAILY tab 10/05/19 minoxidil 10 mg tablet 5 mg PO BID tab 10/05/19 nitroglycerin 0.4 mg sublingual 0.4 mg SUBLINGUAL Q5-15M PRN tab 10/05/19 tablet Apixaban [Eliquis] 5 mg PO BID 10/24/19 Amiodarone HCl [Pacerone] 200 mg PO DAILY 04/01/20 Lisinopril 40 mg PO DAILY 04/01/20 Metoprolol Tartrate 50 mg PO BID 04/01/20 - Social History Tobacco Use: non-smoker Vital Signs Temp Pulse Resp BP Pulse Ox 98.1 F 70 16 139/88 H 94 04/02/20 08:46 04/02/20 08:54 04/02/20 08:46 04/02/20 08:54 04/02/20 08:46 Oxygen Flow Rate (L/min) 2 Oxygen Delivery Method Nasal Cannula Weight: 123.377 kg Body Mass Index (BMI) 34.4 Laboratory Tests Past 24 Hrs 04/01/20 04/01/20 04/01/20 15:15 15:15 19:18 WBC 5.0 RBC 4.54 L Hgb 13.2 Hct 41.3 MCV 91.0 MCH 29.1 MCHC 32.0 RDW Std Deviation 43.9 RDW Coeff of [place]anth[place] 13.1 Plt Count 200 MPV 9.4 Immature Gran % (Auto) 0.600 Neut % (Auto) 79.0 H Lymph % (Auto) 12.1 L [place] % (Auto) 8.1 Eos % (Auto) 0.0 Baso % (Auto) 0.2 Absolute Neuts (auto) 4.0 Absolute Lymphs (auto) 0.61 L Nucleated RBC % 0 Differential Comment Sodium 143 Potassium 3.6 Chloride 111 H Carbon Dioxide 28.0 Anion Gap 4 L BUN 17 Creatinine 1.36 H Estim Creat Clear Calc 60.23 Est GFR (MDRD) Af Amer 68 Est GFR (MDRD) Non-Af 56 L BUN/Creatinine Ratio 12.5 Glucose 105 Calcium 8.6 Total Bilirubin AST ALT Alkaline Phosphatase Troponin I 0.224 H 0.241 H Total Protein Albumin Globulin Albumin/Globulin Ratio 04/01/20 04/02/20 04/02/20 21:45 06:28 06:28 WBC 5.5 RBC 4.63 Hgb 13.3 Hct 42.1 MCV 90.9 MCH 28.7 MCHC 31.6 L RDW Std Deviation 44.5 H RDW Coeff of [place]anth[place] 13.2 Plt Count 198 MPV 9.6 Immature Gran % (Auto) 0.500 Neut % (Auto) 88.3 H Lymph % (Auto) 7.7 L [place] % (Auto) 3.5 Eos % (Auto) 0.0 Baso % (Auto) 0.0 Absolute Neuts (auto) 4.8 Absolute Lymphs (auto) 0.42 L Nucleated RBC % 0 Differential Comment SCANNED Sodium 143 Potassium 4.0 Chloride 114 H Carbon Dioxide 27.0 Anion Gap 2 L BUN 22 H Creatinine 1.31 H Estim Creat Clear Calc 66.23 Est GFR (MDRD) Af Amer 71 Est GFR (MDRD) Non-Af 59 L BUN/Creatinine Ratio 16.8 Glucose 176 H Calcium 8.4 L Total Bilirubin 0.70 AST 19 ALT 53 Alkaline Phosphatase 99 Troponin I 0.227 H Total Protein 7.2 Albumin 3.0 L Globulin 4.2 Albumin/Globulin Ratio 0.7 L - Other Studies Radiology: [] reviewed Other Studies: [] Route of nutrition/ use of supplements: [] Nutritional Intake: [] IV Site: [] Morgan Catheter: [] - Physical Exam General: Alert, Oriented x3, Cooperative, No apparent distress HEENT: Atraumatic, PERRLA, EOMI Neck: Supple, No Nodes Lungs: Diminished Cardiovascular: Regular rate, Regular Rhythm Abdomen: Soft, Non Tender, Non-Distended Extremities: No edema Skin: No rashes IV Site: Peripheral, without redness Musculoskeletal: No Tenderness to Palpation of Joints or Extremities Neurological: Cranial nerves II-XII grossly intact - Assessment/Plan Antibiotics: [] Assessment/Plan: [] Active and Suspected Problems (Last Reviewed 04/01/20 @ 18:[address] Cooper Ward, DO) Chest pain (Acute) COVID-19 (Acute) covid with hypoxia, mild rise in trop - CT neg for PE. On dex and eliquis. Will start remdesivir due to ongoing symptoms for about 10 days. Will follow, thank you
--- NOTE | 2020-04-02 14:24 | CASEMGMT ---
JESUS CM Assessment Note Introduced role of CM to patient via phone call. Patient is awake, alert and able to participate in assessment. Demographics, PCP verified. The patient states he is independent at home. His no longer lives with the patient, he states she moved out earlier in the year, but can still be listed as contact. Patient was concerned regarding his troponin levels and possible need to transfer to [facility] per admitting dr. JESUS CM called to Dr. Davies who felt troponins are stable and cardiology consult or transfer to tertiary care are not needed at this time. Pt was relieved with knowing the information. - Discussed patient finding ride home- he states his brother has had covid and may be able to pick him up -pt lives alone, so can self isolate. -family can bring groceries, etc to pt -discussed buying a pulse oximeter- information given to patient for local providers. Diagnosis: COVID PCP: Dr. Lyons Insurance: [employer] Preferred Pharmacy: [facility] in [place], [place] Prescription Benefit: yes LNOK: Sowmya Dickerson (estranged but pt wanted to keep listing as next of kin) Living Arrangements: Lives independently. No ambulatory DME. States he does all care himself. Tranportation: drives DME: none. Reviewed home oxygen companies innetwork with [employer] ([employer], [employer], [employer], [employer]- let pt know of hospital affiliation). [employer] preferred. Patient DC Goals: Home DC Plan: anticipate return home on discharge. Recommend home oxygen testing @ rest and with ambulation prior to discharge CM available for discharge planning coordination. Contact CM for any concerns/needs that may arise. Abelino WOOTEN RN ACM
--- NOTE | 2020-04-02 14:59 | NURSING ---
Pt resting in bed awake. pt denies needs at this time.
--- NOTE | 2020-04-02 15:07 | PN_ITS ---
Patient Problems: Active and Suspected Problems (Last Reviewed 04/01/20 @ 18:[address] Cooper Ward, DO) Chest pain (Acute) COVID-19 (Acute) Subjective: Patient was seen and examined today, he is maintaining his pulse ox above 90% on 2 L/min. Patient's cardiac enzymes were all in the intermediate range and they flattened out rather than going up and then coming down. I do not think this is significant and I do not think the patient needs to see a blue crabber. Patient was seen by infectious diseases today who placed the patient on remdesivir. He is currently getting dexamethasone. - Physical Exam Vitals/I&O's: Vital Signs Temp Pulse Resp BP Pulse Ox 98.0 F 65 18 139/83 H 97 04/02/20 14:30 04/02/20 14:30 04/02/20 14:30 04/02/20 14:30 04/02/20 14:30 Oxygen Flow Rate (L/min) 2 Oxygen Delivery Method Nasal Cannula Weight: 123.377 kg Body Mass Index (BMI) 34.4 Intake and Output for Last 24 Hours 03/31/20 04/01/20 04/02/20 23:59 23:59 23:59 Intake Total 340 / 340 Balance 340 / 340 General: Alert, Oriented x3, Cooperative, No apparent distress, Well developed, Well nourished HEENT: Atraumatic, PERRLA, EOMI, Normocephalic Oral: Moist Mucosa Neck: Supple, No JVD, Negative Carotid Bruits, Trachea Midline, Thyroid Normal Size and Texture Lungs: Clear to auscultation, Normal air movement, No rhonchi, No wheeze, No rales Cardiovascular: Regular rate, Regular Rhythm, Normal S1, Normal S2, No murmurs, PMI Normal, No rub noted, No Gallop Abdomen: Bowel Sounds Present, Soft, Non Tender, Non-Distended Extremities: No clubbing, No cyanosis, No edema, Capillary Refill Less than 3 Seconds Skin: No rashes, No breakdown Musculoskeletal: No Tenderness to Palpation of Joints or Extremities Neurological: Cranial nerves II-XII grossly intact, Neuro grossly intact, Sensory exam intact to light touch and pain, Coordination normal Psych/Mental Status: Normal Affect, Appropriate, Alert and oriented to time, place, person, mood and affect Laboratory Results 04/01/20 15:15: WBC 5.0, RBC 4.54 L, Hgb 13.2, Hct 41.3, MCV 91.0, MCH 29.1, MCHC 32.0, RDW Std Deviation 43.9, RDW Coeff of Santhosh 13.1, Plt Count 200, MPV 9.4, Immature Gran % (Auto) 0.600, Neut % (Auto) 79.0 H, Lymph % (Auto) 12.1 L, [place] % (Auto) 8.1, Eos % (Auto) 0.0, Baso % (Auto) 0.2, Absolute Neuts (auto) 4.0, Absolute Lymphs (auto) 0.61 L, Nucleated RBC % 0 04/01/20 15:15: Sodium 143, Potassium 3.6, Chloride 111 H, Carbon Dioxide 28.0, Anion Gap 4 L, BUN 17, Creatinine 1.36 H, Estim Creat Clear Calc 60.23, Est GFR (MDRD) Af Amer 68, Est GFR (MDRD) Non-Af 56 L, BUN/Creatinine Ratio 12.5, Glucose 105, Calcium 8.6, Troponin I 0.224 H 04/01/20 19:18: Troponin I 0.241 H 04/01/20 21:45: Troponin I 0.227 H 04/02/20 06:28: WBC 5.5, RBC 4.63, Hgb 13.3, Hct 42.1, MCV 90.9, MCH 28.7, MCHC 31.6 L, RDW Std Deviation 44.5 H, RDW Coeff of Santhosh 13.2, Plt Count 198, MPV 9.6, Immature Gran % (Auto) 0.500, Neut % (Auto) 88.3 H, Lymph % (Auto) 7.7 L, [place] % (Auto) 3.5, Eos % (Auto) 0.0, Baso % (Auto) 0.0, Absolute Neuts (auto) 4.8, Absolute Lymphs (auto) 0.42 L, Nucleated RBC % 0, Differential Comment SCANNED 04/02/20 06:28: Sodium 143, Potassium 4.0, Chloride 114 H, Carbon Dioxide 27.0, Anion Gap 2 L, BUN 22 H, Creatinine 1.31 H, Estim Creat Clear Calc 66.23, Est GFR (MDRD) Af Amer 71, Est GFR (MDRD) Non-Af 59 L, BUN/Creatinine Ratio 16.8, Glucose 176 H, Calcium 8.4 L, Total Bilirubin 0.70, AST 19, ALT 53, Alkaline Phosphatase 99, Total Protein 7.2, Albumin 3.0 L, Globulin 4.2, Albumin/Globulin Ratio 0.7 L Current Medications Acetaminophen (Acetaminophen 325 Mg Tablet) 650 mg PO Q6H PRN PRN PRN Reason: Pain Score 1-10/Temp > 100.7 F Amiodarone HCl (Amiodarone 200 Mg Tablet) 200 mg PO DAILY [facility] Last Admin: 04/02/20 08:55 Dose: 200 mg Documented by: Amlodipine Besylate (Amlodipine 5 Mg Tablet) 5 mg PO DAILY [facility] Last Admin: 04/02/20 08:56 Dose: 5 mg Documented by: Apixaban (Apixaban 5 Mg Tablet) 5 mg PO BID [facility] Last Admin: 04/02/20 08:54 Dose: 5 mg Documented by: Aspirin (Aspirin E.C. 81 Mg Tablet) 81 mg PO DAILY [facility] Last Admin: 04/02/20 08:55 Dose: 81 mg Documented by: Atorvastatin Calcium (Atorvastatin Calcium 80 Mg Tablet) 80 mg PO QHS [facility] Last Admin: 04/01/20 20:42 Dose: 80 mg Documented by: Clopidogrel Bisulfate (Clopidogrel Bisulfate 75 Mg Tablet) 75 mg PO DAILY [facility] Last Admin: 04/02/20 08:55 Dose: 75 mg Documented by: Dexamethasone (Dexamethasone 4 Mg Tablet) 6 mg PO DAILY [facility] Ezetimibe (Ezetimibe 10 Mg Tablet) 10 mg PO DAILY [facility] Last Admin: 04/02/20 08:54 Dose: 10 mg Documented by: Furosemide (Furosemide 40 Mg Tablet) 40 mg PO DAILY [facility] Last Admin: 04/02/20 08:55 Dose: 40 mg Documented by: Guaifenesin (Guaifenesin 10 Ml Udc (200mg/10ml)) 20 ml PO Q4H PRN PRN PRN Reason: COUGH Last Admin: 04/02/20 08:57 Dose: 20 ml Documented by: Remdesivir 100 mg/ Sodium (Chloride) 250 mls @ 125 mls/hr IV DAILY [facility]; Protocol Stop: 04/06/20 11:59 Sodium Chloride () 250 mls @ 15 mls/hr IV .[id number] PRN PRN Reason: Saline Flush Sodium Chloride () 250 mls @ 15 mls/hr IV .[id number] PRN PRN Reason: Additional IVPB Infusion Last Admin: 04/02/20 13:00 Dose: 15 mls/hr Documented by: Lisinopril (Lisinopril 40 Mg Tablet) 40 mg PO DAILY [facility] Last Admin: 04/02/20 08:55 Dose: 40 mg Documented by: Metoprolol Tartrate (Metoprolol Tartrate 50 Mg Tablet) 50 mg PO BID [facility] Last Admin: 04/02/20 08:54 Dose: 50 mg Documented by: Minoxidil (Minoxidil 2.5 Mg Tablet) 5 mg PO BID [facility] Last Admin: 04/02/20 08:55 Dose: 5 mg Documented by: Nitroglycerin (Nitroglycerin (Inpatient Use) 0.4 Mg Tab.Subl) 0.4 mg SUBLINGUAL Q5M PRN PRN Reason: CARDIAC/CHEST PAIN Oxycodone HCl (Oxycodone 5 Mg Tablet) 5 mg PO Q4H PRN PRN PRN Reason: Pain Score 4-5 Oxycodone HCl (Oxycodone 5 Mg Tablet) 10 mg PO Q4H PRN PRN PRN Reason: Pain Score 6-10 Medical Necessity - Tobacco Use Smoking Status: Never smoker Tobacco Use: Non-smoker Assessment/Plan All Active Problems (Last Reviewed 04/01/20 @ 18:[address] Cooper Ward, DO) Chest pain (Acute) COVID-19 (Acute) #1 COVID-19 pneumonia-continue treatment per infectious diseases with dexamethasone and remdesivir #2 mild hypoxia secondary to COVID-19 pneumonia-pulse ox will be monitored #3 coronary artery disease #4 mildly elevated troponins-I do not think these troponin elevations are significant #5 essential hypertension #6 hyperlipidemia #7 osteoarthritis #8 history of atrial fibrillation-patient is currently in sinus rhythm. Inpatient E&M: 30751 [facility] Hosp L2
[2020-04-02] MEDS: Atorvastatin Calcium 80 MG Tablet PO (20:30)
[2020-04-03] VITALS (16 sets, daily range): BP systolic 132–156; BP diastolic 70–91; PULSE 56–65; RESP 16–18; TEMP 36.3–36.8; O2SAT 95–99
[2020-04-03 06:14] LABS: Hemoglobin 12.6 g/dL (13.0-16.5); Mean Corp Hgb Conc 32.3 g/dL (32-36); Mean Corpuscular Hgb 29.1 pg (27.0-32.0); Mean Corpuscular Volume 90.1 fL (80-94); Mean Platelet Vol. 9.8 fl (6.2-12.0); Platelet Count 225 K/mm3 (150-450); RBC Distribution Width CV 12.9 % (11.6-14.6); RBC Distribution Width SD 42.9 fl (35.1-43.9); Red Blood Count 4.33 M/mm3 (4.6-6.2); White Blood Count 12.2 K/mm3 (4.4-11.0)
[2020-04-03 06:37] LABS: ALB/GLOB Ratio 0.7 RATIO (0.9-2.4); AST(SGOT) 24 U/L (15-37); Alanine Aminotransfer ALT/SGPT 49 U/L (16-61); Albumin, Serum 2.9 g/dL (3.2-5.0); Alkaline Phosphatase 98 U/L (45-117); Anion Gap 4 (5-15); BUN 26 mg/dL (7-18); BUN/Creat Ratio 22.4 RATIO (10-20); Calcium,Total 8.6 mg/dL (8.5-10.1); Chloride 112 mmol/L (98-107); Creatinine, Serum 1.16 mg/dL (0.70-1.30); EST Glomerular Filtration Rate 67 mL/min (>60); Est Glom Filt Rate - Afr Amer 81 mL/min (>60); Glucose 153 mg/dL (74-106); Potassium 4.3 mmol/L (3.5-5.1); Protein, Total 6.9 g/dL (6.4-8.2); Sodium Level 143 mmol/L (136-145)
[2020-04-03] MEDS: 0.9% Saline Lock 10 ML Syringe IV (10:39)
[2020-04-03] MEDS: Aspirin E.C. 81 MG Tablet PO (10:41)
[2020-04-03] MEDS: dexAMETHasone 4 MG Tablet 6 MG PO (10:41)
[2020-04-03] MEDS: Furosemide 40 MG Tablet PO (10:42)
[2020-04-03] MEDS: Metoprolol Tartrate 50 MG Tablet PO ×2 (10:42→21:07)
[2020-04-03] MEDS: Ezetimibe 10 MG Tablet PO (10:42)
[2020-04-03] MEDS: Lisinopril 40 MG Tablet PO (10:42)
[2020-04-03] MEDS: Clopidogrel Bisulfate 75 MG Tablet PO (10:42)
[2020-04-03] MEDS: Minoxidil 2.5 MG Tablet 5 MG PO ×2 (10:42→21:07)
[2020-04-03] MEDS: Amiodarone 200 MG Tablet PO (10:42)
[2020-04-03] MEDS: APIXABAN 5 MG TABLET PO ×2 (10:42→21:07)
[2020-04-03] MEDS: amLODIPine 5 MG Tablet PO (10:42)
[2020-04-03] MEDS: guaiFENesin 10 ML UDC (200MG/10ML) 20 ML PO ×2 (10:55→15:12)
--- NOTE | 2020-04-03 14:34 | PCM.PN.HOSP ---
Patient Problems: Active and Suspected Problems (Last Reviewed 04/01/20 @ 18:[address] Cooper Ward, DO) Chest pain (Acute) COVID-19 (Acute) Subjective: Doing well, no issues overnight. Denies any chest pain when he is not coughing Vitals/I&O's: Vital Signs Temp Pulse Resp BP Pulse Ox 97.6 F L 65 18 154/70 H 96 04/03/20 10:35 04/03/20 11:00 04/03/20 10:35 04/03/20 10:42 04/03/20 10:48 Oxygen Flow Rate (L/min) 2 Oxygen Delivery Method Nasal Cannula Weight: 271 lb 15.995 oz Body Mass Index (BMI) 34.4 Intake and Output for Last 24 Hours 04/01/20 04/02/20 04/03/20 23:59 23:59 23:59 Intake Total 641.75 / 1091.75 1120 / 1120 Balance 641.75 / 1091.75 1120 / 1120 General: Alert, Oriented x3, Cooperative, No apparent distress HEENT: Atraumatic, PERRLA, EOMI, Normocephalic Oral: Moist Mucosa Neck: Supple, No JVD Lungs: Clear to auscultation, Normal air movement, No rhonchi, No wheeze, No rales, Diminished Cardiovascular: Regular rate, Regular Rhythm, Normal S1, Normal S2, No murmurs Abdomen: Soft, Non Tender, Non-Distended, No Hepato-splenomegaly Extremities: No edema, Capillary Refill Less than 3 Seconds Skin: No rashes, No breakdown Neurological: Neuro grossly intact, Sensory exam intact to light touch and pain Psych/Mental Status: Normal Affect, Appropriate Laboratory Results 04/03/20 05:44: WBC 12.2 H, RBC 4.33 L, Hgb 12.6 L, Hct 39.0 L, MCV 90.1, MCH 29.1, MCHC 32.3, RDW Std Deviation 42.9, RDW Coeff of Santhosh 12.9, Plt Count 225, MPV 9.8 04/03/20 05:44: Sodium 143, Potassium 4.3, Chloride 112 H, Carbon Dioxide 27.0, Anion Gap 4 L, BUN 26 H, Creatinine 1.16, Estim Creat Clear Calc 74.80, Est GFR (MDRD) Af Amer 81, Est GFR (MDRD) Non-Af 67, BUN/Creatinine Ratio 22.4 H, Glucose 153 H, Calcium 8.6, Total Bilirubin 0.60, AST 24, ALT 49, Alkaline Phosphatase 98, Total Protein 6.9, Albumin 2.9 L, Globulin 4.0, Albumin/Globulin Ratio 0.7 L Current Medications Acetaminophen (Acetaminophen 325 Mg Tablet) 650 mg PO Q6H PRN PRN PRN Reason: Pain Score 1-10/Temp > 100.7 F Amiodarone HCl (Amiodarone 200 Mg Tablet) 200 mg PO DAILY [facility] Last Admin: 04/03/20 10:42 Dose: 200 mg Documented by: Amlodipine Besylate (Amlodipine 5 Mg Tablet) 5 mg PO DAILY [facility] Last Admin: 04/03/20 10:42 Dose: 5 mg Documented by: Apixaban (Apixaban 5 Mg Tablet) 5 mg PO BID [facility] Last Admin: 04/03/20 10:42 Dose: 5 mg Documented by: Aspirin (Aspirin E.C. 81 Mg Tablet) 81 mg PO DAILY [facility] Last Admin: 04/03/20 10:41 Dose: 81 mg Documented by: Atorvastatin Calcium (Atorvastatin Calcium 80 Mg Tablet) 80 mg PO QHS [facility] Last Admin: 04/02/20 20:30 Dose: 80 mg Documented by: Clopidogrel Bisulfate (Clopidogrel Bisulfate 75 Mg Tablet) 75 mg PO DAILY [facility] Last Admin: 04/03/20 10:42 Dose: 75 mg Documented by: Dexamethasone (Dexamethasone 4 Mg Tablet) 6 mg PO DAILY [facility] Last Admin: 04/03/20 10:41 Dose: 6 mg Documented by: Ezetimibe (Ezetimibe 10 Mg Tablet) 10 mg PO DAILY [facility] Last Admin: 04/03/20 10:42 Dose: 10 mg Documented by: Furosemide (Furosemide 40 Mg Tablet) 40 mg PO DAILY [facility] Last Admin: 04/03/20 10:42 Dose: 40 mg Documented by: Guaifenesin (Guaifenesin 10 Ml Udc (200mg/10ml)) 20 ml PO Q4H PRN PRN PRN Reason: COUGH Last Admin: 04/03/20 10:55 Dose: 20 ml Documented by: Remdesivir 100 mg/ Sodium (Chloride) 250 mls @ 125 mls/hr IV DAILY [facility]; Protocol Stop: 04/06/20 11:59 Last Infusion: 04/03/20 12:39 Dose: Infused Documented by: Sodium Chloride () 250 mls @ 15 mls/hr IV .[id number] PRN PRN Reason: Saline Flush Sodium Chloride () 250 mls @ 15 mls/hr IV .[id number] PRN PRN Reason: Additional IVPB Infusion Last Infusion: 04/02/20 16:27 Dose: 0 mls/hr Documented by: Lisinopril (Lisinopril 40 Mg Tablet) 40 mg PO DAILY [facility] Last Admin: 04/03/20 10:42 Dose: 40 mg Documented by: Metoprolol Tartrate (Metoprolol Tartrate 50 Mg Tablet) 50 mg PO BID [facility] Last Admin: 04/03/20 10:42 Dose: 50 mg Documented by: Minoxidil (Minoxidil 2.5 Mg Tablet) 5 mg PO BID [facility] Last Admin: 04/03/20 10:42 Dose: 5 mg Documented by: Nitroglycerin (Nitroglycerin (Inpatient Use) 0.4 Mg Tab.Subl) 0.4 mg SUBLINGUAL Q5M PRN PRN Reason: CARDIAC/CHEST PAIN Oxycodone HCl (Oxycodone 5 Mg Tablet) 5 mg PO Q4H PRN PRN PRN Reason: Pain Score 4-5 Oxycodone HCl (Oxycodone 5 Mg Tablet) 10 mg PO Q4H PRN PRN PRN Reason: Pain Score 6-10 STROKE Vital Signs/Narrative: Vital Signs Temp Pulse Resp BP Pulse Ox 04/03/20 11:00 65 04/03/20 10:48 96 04/03/20 10:42 63 154/70 H 04/03/20 10:35 97.6 F L 63 18 154/70 H 96 Medical Necessity - Tobacco Use Smoking Status: Never smoker Tobacco Use: Non-smoker Assessment/Plan All Active Problems (Last Reviewed 04/01/20 @ 18:[address] Cooper Ward DO) Chest pain (Acute) COVID-19 (Acute) 1. Acute hypoxic respiratory insufficiency secondary to COVID-19 pneumonia/elevated troponin/chest pain -Doing stable without oxygen saturation of 95% on 2 L -Continue with Decadron and remdesivir, he has 10 days out from his diagnosis therefore convalescent plasma unlikely to be helpful -Continue with incentive spirometer -[place] to be secondary to demand ischemia as it is neither rising or falling -His chest pain is not similar to his previous heart attack pain. He states that it occurs whenever he coughs if he has been resting he does not have any chest pain, is not caused by activity either 2. CAD status post stents/HTN/HLD/A. fib -Continue with his home blood pressure medications, blood pressure is stable -Continue with Eliquis, Plavix, aspirin -Continue with Lasix -Continue with metoprolol and amiodarone DVT: Eliquis Inpatient E&M: 72183 Subs Hosp L2
--- NOTE | 2020-04-03 16:18 | PCM.PN.ID ---
Patient Problems: Active and Suspected Problems (Last Reviewed 04/01/20 @ 18:[address] Cooper Ward, DO) Chest pain (Acute) COVID-19 (Acute) Subjective: Feeling a little better, no fever, no n/v/d. - Physical Exam Vitals/I&O's: Vital Signs Temp Pulse Resp BP Pulse Ox 97.7 F L 57 L 16 152/75 H 98 04/03/20 15:12 04/03/20 15:12 04/03/20 15:12 04/03/20 15:12 04/03/20 15:15 Oxygen Flow Rate (L/min) 2 Oxygen Delivery Method Nasal Cannula Weight: 123.377 kg Body Mass Index (BMI) 34.4 Intake and Output for Last 24 Hours 04/01/20 04/02/20 04/03/20 23:59 23:59 23:59 Intake Total 641.75 / 1091.75 1120 / 1120 Balance 641.75 / 1091.75 1120 / 1120 General: Alert, Cooperative, No apparent distress Lungs: Diminished Cardiovascular: Regular rate, Regular Rhythm Abdomen: Soft, Non Tender, Non-Distended Skin: No rashes Laboratory Results 04/03/20 05:44: WBC 12.2 H, RBC 4.33 L, Hgb 12.6 L, Hct 39.0 L, MCV 90.1, MCH 29.1, MCHC 32.3, RDW Std Deviation 42.9, RDW Coeff of [place] 12.9, Plt Count 225, MPV 9.8 04/03/20 05:44: Sodium 143, Potassium 4.3, Chloride 112 H, Carbon Dioxide 27.0, Anion Gap 4 L, BUN 26 H, Creatinine 1.16, Estim Creat Clear Calc 74.80, Est GFR (MDRD) Af Amer 81, Est GFR (MDRD) Non-Af 67, BUN/Creatinine Ratio 22.4 H, Glucose 153 H, Calcium 8.6, Total Bilirubin 0.60, AST 24, ALT 49, Alkaline Phosphatase 98, Total Protein 6.9, Albumin 2.9 L, Globulin 4.0, Albumin/Globulin Ratio 0.7 L Current Medications Acetaminophen (Acetaminophen 325 Mg Tablet) 650 mg PO Q6H PRN PRN PRN Reason: Pain Score 1-10/Temp > 100.7 F Amiodarone HCl (Amiodarone 200 Mg Tablet) 200 mg PO DAILY [facility] Last Admin: 04/03/20 10:42 Dose: 200 mg Documented by: Amlodipine Besylate (Amlodipine 5 Mg Tablet) 5 mg PO DAILY [facility] Last Admin: 04/03/20 10:42 Dose: 5 mg Documented by: Apixaban (Apixaban 5 Mg Tablet) 5 mg PO BID [facility] Last Admin: 04/03/20 10:42 Dose: 5 mg Documented by: Aspirin (Aspirin E.C. 81 Mg Tablet) 81 mg PO DAILY [facility] Last Admin: 04/03/20 10:41 Dose: 81 mg Documented by: Atorvastatin Calcium (Atorvastatin Calcium 80 Mg Tablet) 80 mg PO QHS [facility] Last Admin: 04/02/20 20:30 Dose: 80 mg Documented by: Clopidogrel Bisulfate (Clopidogrel Bisulfate 75 Mg Tablet) 75 mg PO DAILY [facility] Last Admin: 04/03/20 10:42 Dose: 75 mg Documented by: Dexamethasone (Dexamethasone 4 Mg Tablet) 6 mg PO DAILY [facility] Last Admin: 04/03/20 10:41 Dose: 6 mg Documented by: Ezetimibe (Ezetimibe 10 Mg Tablet) 10 mg PO DAILY [facility] Last Admin: 04/03/20 10:42 Dose: 10 mg Documented by: Furosemide (Furosemide 40 Mg Tablet) 40 mg PO DAILY [facility] Last Admin: 04/03/20 10:42 Dose: 40 mg Documented by: Guaifenesin (Guaifenesin 10 Ml Udc (200mg/10ml)) 20 ml PO Q4H PRN PRN PRN Reason: COUGH Last Admin: 04/03/20 15:12 Dose: 20 ml Documented by: Remdesivir 100 mg/ Sodium (Chloride) 250 mls @ 125 mls/hr IV DAILY [facility]; Protocol Stop: 04/06/20 11:59 Last Infusion: 04/03/20 12:39 Dose: Infused Documented by: Sodium Chloride () 250 mls @ 15 mls/hr IV .[id number] PRN PRN Reason: Saline Flush Sodium Chloride () 250 mls @ 15 mls/hr IV .[id number] PRN PRN Reason: Additional IVPB Infusion Last Infusion: 04/02/20 16:27 Dose: 0 mls/hr Documented by: Lisinopril (Lisinopril 40 Mg Tablet) 40 mg PO DAILY [facility] Last Admin: 04/03/20 10:42 Dose: 40 mg Documented by: Metoprolol Tartrate (Metoprolol Tartrate 50 Mg Tablet) 50 mg PO BID [facility] Last Admin: 04/03/20 10:42 Dose: 50 mg Documented by: Minoxidil (Minoxidil 2.5 Mg Tablet) 5 mg PO BID [facility] Last Admin: 04/03/20 10:42 Dose: 5 mg Documented by: Nitroglycerin (Nitroglycerin (Inpatient Use) 0.4 Mg Tab.Subl) 0.4 mg SUBLINGUAL Q5M PRN PRN Reason: CARDIAC/CHEST PAIN Oxycodone HCl (Oxycodone 5 Mg Tablet) 5 mg PO Q4H PRN PRN PRN Reason: Pain Score 4-5 Oxycodone HCl (Oxycodone 5 Mg Tablet) 10 mg PO Q4H PRN PRN PRN Reason: Pain Score 6-10 Medical Necessity - Tobacco Use Smoking Status: Never smoker Tobacco Use: Non-smoker Route of nutrition/ use of supplements: [] Nutritional Intake: [] IV Site: [] Morgan Catheter: [] - Assessment/Plan Antibiotics: [] Assessment/Plan: [] Active and Suspected Problems (Last Reviewed 04/01/20 @ 18:[address] Cooper Ward, DO) Chest pain (Acute) COVID-19 (Acute) covid with hypoxia, mild rise in trop - CT neg for PE. On dex and eliquis. Cont remdesivir while inpatient. Fever resolved. On 2L o2. Ok for discharge home to complete 10 days total dexamethasone with o2 as needed. Will follow
[2020-04-03] MEDS: Atorvastatin Calcium 80 MG Tablet PO (21:07)
[2020-04-04] VITALS (8 sets, daily range): BP systolic 134–150; BP diastolic 67–87; PULSE 48–59; RESP 17–18; TEMP 36.4–37; O2SAT 94–99
[2020-04-04 07:10] LABS: Hematocrit 40.2 % (40-54); Hemoglobin 12.6 g/dL (13.0-16.5); Mean Corp Hgb Conc 31.3 g/dL (32-36); Mean Corpuscular Hgb 29.2 pg (27.0-32.0); Mean Corpuscular Volume 93.3 fL (80-94); Mean Platelet Vol. 10.7 fl (6.2-12.0); Platelet Count 246 K/mm3 (150-450); RBC Distribution Width SD 44.5 fl (35.1-43.9); Red Blood Count 4.31 M/mm3 (4.6-6.2); White Blood Count 12.2 K/mm3 (4.4-11.0)
[2020-04-04 07:29] LABS: ALB/GLOB Ratio 0.7 RATIO (0.9-2.4); AST(SGOT) 22 U/L (15-37); Alanine Aminotransfer ALT/SGPT 50 U/L (16-61); Albumin, Serum 2.9 g/dL (3.2-5.0); Alkaline Phosphatase 95 U/L (45-117); Anion Gap 6 (5-15); BUN 26 mg/dL (7-18); BUN/Creat Ratio 22.2 RATIO (10-20); Calcium,Total 8.6 mg/dL (8.5-10.1); Chloride 114 mmol/L (98-107); Creatinine, Serum 1.17 mg/dL (0.70-1.30); EST Glomerular Filtration Rate 67 mL/min (>60); Est Glom Filt Rate - Afr Amer 81 mL/min (>60); Estimated Creatinine Clearance 74.16 ml/min; Globulin 3.9 g/dL (2.2-4.2); Glucose 150 mg/dL (74-106); Magnesium 2.4 mg/dL (1.6-2.6); Potassium 4.7 mmol/L (3.5-5.1); Protein, Total 6.8 g/dL (6.4-8.2); Sodium Level 144 mmol/L (136-145)
[2020-04-04] MEDS: dexAMETHasone 4 MG Tablet 6 MG PO (08:44)
[2020-04-04] MEDS: Lisinopril 40 MG Tablet PO (08:45)
[2020-04-04] MEDS: Furosemide 40 MG Tablet PO (08:45)
[2020-04-04] MEDS: Ezetimibe 10 MG Tablet PO (08:45)
[2020-04-04] MEDS: Minoxidil 2.5 MG Tablet 5 MG PO (08:45)
[2020-04-04] MEDS: Aspirin E.C. 81 MG Tablet PO (08:45)
[2020-04-04] MEDS: APIXABAN 5 MG TABLET PO (08:46)
[2020-04-04] MEDS: amLODIPine 5 MG Tablet PO (08:46)
[2020-04-04] MEDS: guaiFENesin 10 ML UDC (200MG/10ML) 20 ML PO (08:46)
[2020-04-04] MEDS: Clopidogrel Bisulfate 75 MG Tablet PO (08:46)
--- NOTE | 2020-04-04 12:24 | PCM.DC ---
- Discharge Diagnoses Current Active Problems: Current Active and Chronic Problems (Last Reviewed 04/01/20 @ 18:[address] Cooper Ward, DO) Chest pain (Acute) COVID-19 (Acute) Hx of cholecystectomy (Chronic) 10/30/19 Cholelithiasis with chronic cholecystitis (Chronic) History of colonoscopy (Chronic ~2014) History of esophagogastroduodenoscopy (EGD) (Chronic ~2014) History of knee joint replacement (Chronic) History of total right hip arthroplasty (Chronic) History of inguinal hernia repair (Chronic) History of left shoulder replacement (Chronic) History of total left hip arthroplasty (Chronic) History of coronary angioplasty (Chronic) History of heart artery stent (Chronic) History of cardiac catheterization (Chronic) COPD (chronic obstructive pulmonary disease) (Chronic) CAD (coronary artery disease) (Chronic) Atrial fibrillation (Chronic) severe degenerative arthritis of right hip (Chronic) Rheumatoid arthritis (Chronic) Obstructive sleep apnea syndrome (Chronic) history of ischemic stroke (Chronic) HTN (hypertension) (Chronic) Hyperlipidemia (Chronic) Esophageal reflux (Chronic) Coronary atherosclerosis of [place] coronary vessel (Chronic) You will use the following diet at home:: Cardiac Your food should be the consistency of: Regular Your liquids should be the consistency of: Regular/Thin Discharge Activity: Return to Normal Activity Call your doctor if you observe: Fever of 101 or Higher, Shortness of breath, Dizziness, Fainting spells, Swelling in the ankles, Chest pain, Increased palpitations (irregular heartbeat) Allergies/Adverse Reactions: Allergies Penicillins Allergy (Verified 04/01/20 15:00) Hives Medications to take at Discharge Clopidogrel Bisulfate [Plavix] 75 mg PO DAILY 09/03/14 amlodipine 5 mg tablet 5 mg PO DAILY 10/05/19 atorvastatin 80 mg tablet 80 mg PO DAILY tab 10/05/19 ezetimibe 10 mg tablet 10 mg PO DAILY tab 10/05/19 furosemide 40 mg tablet 40 mg PO DAILY tab 10/05/19 minoxidil 10 mg tablet 5 mg PO BID tab 10/05/19 nitroglycerin 0.4 mg sublingual tablet 0.4 mg SUBLINGUAL Q5-15M PRN tab 10/05/19 Apixaban [Eliquis] 5 mg PO BID 10/24/19 Amiodarone HCl [Pacerone] 200 mg PO DAILY 11/09/20 Metoprolol Tartrate 50 mg PO BID 04/01/20 Dexamethasone [Decadron] 6 mg PO DAILY #9 tab 04/04/20 Remdesivir 100 mg IV DAILY vial 04/04/20 The following prescriptions were given: Dexamethasone [Decadron] 6 mg PO DAILY #9 tab Transmission Status: Pending to [facility] Primary Care Physician: Mary Carmen Lyons MD [Primary Care Provider] - Please follow up with your Primary Care Physician in: 3-5 days Test Results: Test results from this visit will be discussed in further detail at your follow-up appointment, if applicable.
--- NOTE | 2020-04-04 12:33 | CASEMGMT ---
RN CM Note: home oxygen testing completed and patient did not qualify for home O2. [facility] pharmacy called and notified patient will need Eliquis on dc and they have savings card for $10 copay. DC PLAN: home. Abelino WOOTEN RN ACM
--- NOTE | 2020-04-04 18:17 | PCM.DC.SUM ---
Discharge Date and Diagnosis - Problem List Patient Problems: Active and Suspected Problems (Last Reviewed 04/01/20 @ 18:[address] Cooper Ward DO) Chest pain (Acute) COVID-19 (Acute) Date of Admission: 04/01/20 Date of Discharge: 04/04/20 - Primary Discharge Diagnosis Acute Problems: Active Problems (Last Reviewed 04/01/20 @ 18:[address] Cooper Ward DO) Chest pain (Acute) COVID-19 (Acute) - Secondary Discharge Diagnosis Chronic Problems: Chronic Problems (Last Reviewed 04/01/20 @ 18:[address] Cooper Ward DO) Hx of cholecystectomy (Chronic) 10/30/19 Cholelithiasis with chronic cholecystitis (Chronic) History of colonoscopy (Chronic ~2014) History of esophagogastroduodenoscopy (EGD) (Chronic ~2014) History of knee joint replacement (Chronic) History of total right hip arthroplasty (Chronic) History of inguinal hernia repair (Chronic) History of left shoulder replacement (Chronic) History of total left hip arthroplasty (Chronic) History of coronary angioplasty (Chronic) History of heart artery stent (Chronic) History of cardiac catheterization (Chronic) COPD (chronic obstructive pulmonary disease) (Chronic) CAD (coronary artery disease) (Chronic) Atrial fibrillation (Chronic) severe degenerative arthritis of right hip (Chronic) Rheumatoid arthritis (Chronic) Obstructive sleep apnea syndrome (Chronic) history of ischemic stroke (Chronic) HTN (hypertension) (Chronic) Hyperlipidemia (Chronic) Esophageal reflux (Chronic) Coronary atherosclerosis of [place] coronary vessel (Chronic) Hospital Course and Treatment Imaging Results: Clinical Impression(s) from Imaging Studies Chest CTA 04/01/20 15:12 IMPRESSION: 1. No evidence of pulmonary embolus. 2. No aortic dissection or aneurysm. 3. Patchy peripheral groundglass infiltrates consistent with but not diagnostic of COVID 19 pneumonia. 4. Degenerative changes of the drastic spine. Electronically Signed: Scotty Aleman DO at 16:25 EST Tel [phone], Service support , Consults: ID Operations: None Procedures: None Summary of Care Provided: Per HPI: The patient is a 64 year old M presents with chest pain and shortness of breath. Patient was diagnosed 10 days ago with COVID-19. Has been coughing and has been having some anterior chest pain. Patient has had an extensive history of coronary artery disease and has had what sounds like ST ovation myocardial infarction. States the chest pain is different from that. Does state that it is worse with cough. He presented to the emergency room and had a troponin that came back at 0.224. He did receive aspirin and acetaminophen in the emergency room. Patient's pulse ox was 90% on room air was placed on oxygen while he was here. CT angiogram of chest was performed and showed bilateral patchy infiltrates. The hospital service was contacted for admission in regards to the COVID-19 and also the chest pain and elevated troponins. Hospital Course: 1. Acute hypoxic respiratory insufficiency secondary to COVID-19 pneumonia/elevated troponin/chest pain -He is stable on room air, he did have an ambulatory pulse ox today on the day of discharge and he was 96% on ambulation and 97% on room air -Continue with Decadron to complete 10 days, he did receive remdesivir but he did not receive convalescent plasma -Continue with incentive spirometer -Elevated troponin felt to be secondary to demand ischemia as it is neither rising or falling -His chest pain is not similar to his previous heart attack pain. He states that it occurs whenever he coughs if he has been resting he does not have any chest pain, is not caused by activity either -I discussed with him the plan for discharge today and he expressed understanding of the risks and benefits of going home and he would like to go home today. He does not require any oxygen and would recommend having him follow-up with his PCP in 3 to 5 days for further evaluation. 2. CAD status post stents/HTN/HLD/A. fib -Continue with his home blood pressure medications, blood pressure is stable -Continue with Eliquis, Plavix, aspirin -Continue with Lasix -Continue with metoprolol and amiodarone Patient Problems: Active and Suspected Problems (Last Reviewed 04/01/20 @ 18:[address] Cooper Ward DO) Chest pain (Acute) COVID-19 (Acute) - Physical Exam Vitals/I&O's: Vital Signs Temp Pulse Resp BP Pulse Ox 98.0 F 57 L 18 150/87 H 97 04/04/20 12:17 04/04/20 12:17 04/04/20 12:17 04/04/20 12:17 04/04/20 12:17 Oxygen Flow Rate (L/min) 2 Oxygen Delivery Method Room Air Weight: 271 lb 15.995 oz Body Mass Index (BMI) 34.4 Intake and Output for Last 24 Hours 04/02/20 04/03/20 04/04/20 23:59 23:59 23:59 Intake Total 641.75 / 1091.75 1580 / 1580 780 / 780 Output Total 300 / 300 Balance 641.75 / 1091.75 1280 / 1280 780 / 780 General: Alert, Oriented x3, Cooperative, No apparent distress HEENT: Atraumatic, PERRLA, EOMI, Normocephalic Oral: Moist Mucosa Neck: Supple, No JVD Lungs: Clear to auscultation, Normal air movement, No rhonchi, No wheeze, No rales, Diminished Cardiovascular: Regular rate, Regular Rhythm, Normal S1, Normal S2, No murmurs Abdomen: Soft, Non Tender, Non-Distended, No Hepato-splenomegaly Extremities: No edema, Capillary Refill Less than 3 Seconds Skin: No rashes, No breakdown Neurological: Neuro grossly intact, Sensory exam intact to light touch and pain Psych/Mental Status: Normal Affect, Appropriate Laboratory Results 04/04/20 06:56: WBC 12.2 H, RBC 4.31 L, Hgb 12.6 L, Hct 40.2, MCV 93.3, MCH 29.2, MCHC 31.3 L, RDW Std Deviation 44.5 H, RDW Coeff of Santhosh 13.0, Plt Count 246, MPV 10.7 04/04/20 06:56: Sodium 144, Potassium 4.7, Chloride 114 H, Carbon Dioxide 24.0, Anion Gap 6, BUN 26 H, Creatinine 1.17, Estim Creat Clear Calc 74.16, Est GFR (MDRD) Af Amer 81, Est GFR (MDRD) Non-Af 67, BUN/Creatinine Ratio 22.2 H, Glucose 150 H, Calcium 8.6, Magnesium 2.4, Total Bilirubin 0.60, AST 22, ALT 50, Alkaline Phosphatase 95, Total Protein 6.8, Albumin 2.9 L, Globulin 3.9, Albumin/Globulin Ratio 0.7 L Current Medications Acetaminophen (Acetaminophen 325 Mg Tablet) 650 mg PO Q6H PRN PRN PRN Reason: Pain Score 1-10/Temp > 100.7 F Amiodarone HCl (Amiodarone 200 Mg Tablet) 200 mg PO DAILY [facility] Last Admin: 04/04/20 10:39 Dose: Not Given Documented by: Amlodipine Besylate (Amlodipine 5 Mg Tablet) 5 mg PO DAILY [facility] Last Admin: 04/04/20 08:46 Dose: 5 mg Documented by: Apixaban (Apixaban 5 Mg Tablet) 5 mg PO BID [facility] Last Admin: 04/04/20 08:46 Dose: 5 mg Documented by: Aspirin (Aspirin E.C. 81 Mg Tablet) 81 mg PO DAILY [facility] Last Admin: 04/04/20 08:45 Dose: 81 mg Documented by: Atorvastatin Calcium (Atorvastatin Calcium 80 Mg Tablet) 80 mg PO QHS [facility] Last Admin: 04/03/20 21:07 Dose: 80 mg Documented by: Clopidogrel Bisulfate (Clopidogrel Bisulfate 75 Mg Tablet) 75 mg PO DAILY [facility] Last Admin: 04/04/20 08:46 Dose: 75 mg Documented by: Dexamethasone (Dexamethasone 4 Mg Tablet) 6 mg PO DAILY [facility] Last Admin: 04/04/20 08:44 Dose: 6 mg Documented by: Ezetimibe (Ezetimibe 10 Mg Tablet) 10 mg PO DAILY [facility] Last Admin: 04/04/20 08:45 Dose: 10 mg Documented by: Furosemide (Furosemide 40 Mg Tablet) 40 mg PO DAILY [facility] Last Admin: 04/04/20 08:45 Dose: 40 mg Documented by: Guaifenesin (Guaifenesin 10 Ml Udc (200mg/10ml)) 20 ml PO Q4H PRN PRN PRN Reason: COUGH Last Admin: 04/04/20 08:46 Dose: 20 ml Documented by: Remdesivir 100 mg/ Sodium (Chloride) 250 mls @ 125 mls/hr IV DAILY [facility]; Protocol Stop: 04/06/20 11:59 Last Infusion: 04/04/20 12:24 Dose: Infused Documented by: Sodium Chloride () 250 mls @ 15 mls/hr IV .[id number] PRN PRN Reason: Saline Flush Sodium Chloride () 250 mls @ 15 mls/hr IV .[id number] PRN PRN Reason: Additional IVPB Infusion Last Infusion: 04/04/20 12:24 Dose: Infused Documented by: Metoprolol Tartrate (Metoprolol Tartrate 50 Mg Tablet) 50 mg PO BID [facility] Last Admin: 04/04/20 10:39 Dose: Not Given Documented by: Minoxidil (Minoxidil 2.5 Mg Tablet) 5 mg PO BID [facility] Last Admin: 04/04/20 08:45 Dose: 5 mg Documented by: Nitroglycerin (Nitroglycerin (Inpatient Use) 0.4 Mg Tab.Subl) 0.4 mg SUBLINGUAL Q5M PRN PRN Reason: CARDIAC/CHEST PAIN Oxycodone HCl (Oxycodone 5 Mg Tablet) 5 mg PO Q4H PRN PRN PRN Reason: Pain Score 4-5 Oxycodone HCl (Oxycodone 5 Mg Tablet) 10 mg PO Q4H PRN PRN PRN Reason: Pain Score 6-10 Discharge Activity: Return to Normal Activity Call your doctor if you observe: Fever of 101 or Higher, Shortness of breath, Dizziness, Fainting spells, Swelling in the ankles, Chest pain, Increased palpitations (irregular heartbeat) Home Medications: Medications to take at Discharge Clopidogrel Bisulfate [Plavix] 75 mg PO DAILY 09/03/14 amlodipine 5 mg tablet 5 mg PO DAILY 10/05/19 atorvastatin 80 mg tablet 80 mg PO DAILY tab 10/05/19 ezetimibe 10 mg tablet 10 mg PO DAILY tab 10/05/19 furosemide 40 mg tablet 40 mg PO DAILY tab 10/05/19 minoxidil 10 mg tablet 5 mg PO BID tab 10/05/19 nitroglycerin 0.4 mg sublingual tablet 0.4 mg SUBLINGUAL Q5-15M PRN tab 10/05/19 Apixaban [Eliquis] 5 mg PO BID 10/24/19 Amiodarone HCl [Pacerone] 200 mg PO DAILY 04/01/20 Metoprolol Tartrate 50 mg PO BID 04/01/20 Dexamethasone [Decadron] 6 mg PO DAILY #9 tab 04/04/20 Remdesivir 100 mg IV DAILY vial 04/04/20 Following Prescriptions Were Given to Patient: Dexamethasone [Decadron] 6 mg PO DAILY #9 tab Transmission Status: Received by [facility] Primary Care Physician: Mary Carmen Lynos MD [Primary Care Provider] - Please follow up with your Primary Care Physician in: 3-5 days Disposition: Home Minutes spent on discharge:: 35 Patient Condition:: Stable Medical Necessity - Tobacco Use Smoking Status: Never smoker Tobacco Use: Non-smoker Meaningful Use Info Meaningful Use Diagnoses (Choose all that apply): None applicable Inpatient E&M: 46509 Disch Hosp
--- NOTE | 2020-04-08 16:50 | CASEMGMT ---
[facility] Discharge Follow-up Phone Call: ENRICO: [employer]: 3 Call Date: 04/08/2020 Discharge Date: 04/04/2020 Time of Call: 1635 Admitting Diagnosis: COVID Discharge follow-up call placed to pt. Pt states he is wore out and weak but is improving. Reports his PO to be 93-94% and his BP 130-140/71 and HR 43-51. Pt states he does feel dizzy but attributes this to being weak. He is ambulating without difficulty and states his cough is almost gone. He reports his appetite to be too good with the steroid which he has been taking as prescribed. Pt states his senses of taste and smell have returned but his taste is still a little off. He has a virtual appointment with his PCP tomorrow. Pt denies any questions or concerns at this time. Rika Warner RN CM
== END 2020-04-04 18:15 | disposition home or self-care (01) | DRG 177 ==
LOC: ED 15:39 → MS2 19:51
PROVIDERS: Internal Medicine Infectious Disease; Emergency Provider Emergency Medicine; PCP Internal Medicine; Visit Provider Family Medicine
DX: U07.1 COVID-19 (principal); J12.89 Other viral pneumonia; I48.20 Chronic atrial fibrillation, unspecified; J44.0 Chronic obstructive pulmonary disease with (acute) lower respiratory infection; R06.89 Other abnormalities of breathing; R09.02 Hypoxemia; I25.10 Atherosclerotic heart disease of native coronary artery without angina pectoris; I10 Essential (primary) hypertension; E78.5 Hyperlipidemia, unspecified; K21.9 Gastro-esophageal reflux disease without esophagitis; M06.9 Rheumatoid arthritis, unspecified; G47.33 Obstructive sleep apnea (adult) (pediatric); M16.11 Unilateral primary osteoarthritis, right hip; Z96.612 Presence of left artificial shoulder joint; Z96.643 Presence of artificial hip joint, bilateral; Z96.659 Presence of unspecified artificial knee joint; Z79.899 Other long term (current) drug therapy; Z86.73 Personal history of transient ischemic attack (TIA), and cerebral infarction without residual deficits; Z79.02 Long term (current) use of antithrombotics/antiplatelets; Z95.5 Presence of coronary angioplasty implant and graft
CPT/HCPCS: 36415; 71275; 80048; 80053; 83735; 84484; 85025; 85027; 93005; 97110; 97162; 97166; 97530; 99285; J7050; Q9967; A4216

== ENCOUNTER → 2020-06-17 09:36 | Outpatient (CLI) | payer BC, SELFPAY ==
[2020-04-01 18:27] VITALS: BMI 34.4
[2020-06-17 10:33] LABS: Hematocrit 42.8 % (40-54); Hemoglobin 13.6 g/dL (13.0-16.5); Mean Corp Hgb Conc 31.8 g/dL (32-36); Mean Corpuscular Volume 91.3 fL (80-94); Mean Platelet Vol. 9.5 fl (6.2-12.0); Platelet Count 254 K/mm3 (150-450); RBC Distribution Width CV 14.5 % (11.6-14.6); RBC Distribution Width SD 48.9 fl (35.1-43.9); Red Blood Count 4.69 M/mm3 (4.6-6.2)
[2020-06-17 10:53] LABS: Hemoglobin A1c 5.3 % (3.8-5.6)
[2020-06-17 10:57] LABS: AST(SGOT) 11 U/L (15-37); Alanine Aminotransfer ALT/SGPT 25 U/L (16-61); Albumin, Serum 3.8 g/dL (3.2-5.0); Alkaline Phosphatase 100 U/L (45-117); Anion Gap 4 (5-15); BUN 21 mg/dL (7-18); BUN/Creat Ratio 16.8 RATIO (10-20); Calcium,Total 8.8 mg/dL (8.5-10.1); Chloride 108 mmol/L (98-107); Cholesterol 164 mg/dL (200); Creatinine, Serum 1.25 mg/dL (0.70-1.30); EST Glomerular Filtration Rate 62 mL/min (>60); Est Glom Filt Rate - Afr Amer 75 mL/min (>60); Globulin 3.8 g/dL (2.2-4.2); Glucose 94 mg/dL (74-106); High Density Lipoprotein 57 mg/dL; Magnesium 2.1 mg/dL (1.6-2.6); Potassium 4.7 mmol/L (3.5-5.1); Protein, Total 7.6 g/dL (6.4-8.2); Sodium Level 139 mmol/L (136-145); T4 Free Direct 1.11 ng/dL (0.76-1.46); Thyroid Stim Hormone (TSH) 1.49 uIU/mL (0.358-3.74); Triglycerides 91 mg/dL; Very Low Density Lipoprotein 18 mg/dL (5-40)
== END ==
PROVIDERS: PCP Internal Medicine; Referring Provider Internal Medicine; Visit Provider Internal Medicine
DX: E78.2 Mixed hyperlipidemia (principal); Z79.899 Other long term (current) drug therapy; R73.01 Impaired fasting glucose; I10 Essential (primary) hypertension
CPT/HCPCS: 36415; 80053; 80061; 83036; 83735; 84439; 84443; 85027

== ENCOUNTER → 2020-09-23 11:29 | Outpatient (CLI) | payer BC, SELFPAY ==
[2020-04-01 18:27] VITALS: BMI 34.4
[2020-09-23 13:21] LABS: PSA,Total- Diagnostic 0.97 ng/mL (0.0-4.0)
== END ==
PROVIDERS: PCP Family Medicine; Referring Provider Family Medicine; Visit Provider Family Medicine
DX: Z12.5 Encounter for screening for malignant neoplasm of prostate (principal); Z80.42 Family history of malignant neoplasm of prostate
CPT/HCPCS: 36415; 84153

== ENCOUNTER 2020-10-27 17:47 | Inpatient (IN) | payer MEDICARE, OTHER, SELFPAY ==
[2020-04-01 18:27] VITALS: BMI 34.4
[2020-10-27 17:48] VITALS: BP 157/66; PULSE 75; RESP 20; TEMP 38.5; O2SAT 97; BMI 37.9
[2020-10-27 18:21] LABS: Absolute Lymphocyte Count 1.06 X10^3/uL (0.83-4.51); Absolute Neutrophil Count 12.9 X10^3/uL (2.0-7.7); Basophil# 0.04 X10^3/uL; Basophil% 0.3 % (0-1); Eosinophil# 0.02 X10^3/uL; Eosinophils% 0.1 % (0-5); Hematocrit 37.1 % (40-54); Hemoglobin 12.7 g/dL (13.0-16.5); Lymphocyte # 1.06 X10^3/ul (0.83-4.51); Mean Corp Hgb Conc 34.2 g/dL (32-36); Mean Corpuscular Hgb 31.3 pg (27.0-32.0); Mean Corpuscular Volume 91.4 fL (80-94); Mean Platelet Vol. 9.8 fl (6.2-12.0); Monocyte# 1.03 X10^3/uL; Monocyte% 6.8 % (0-10); NRBC Flagged by Analyzer 0 % (0-5); Neutrophil # 12.91 X10^3/uL (2.7-7.7); Neutrophil % 85.5 % (47-70); Platelet Count 297 K/mm3 (150-450); RBC Distribution Width CV 13.7 % (11.6-14.6); RBC Distribution Width SD 46.5 fl (35.1-43.9); Red Blood Count 4.06 M/mm3 (4.6-6.2); White Blood Count 15.1 K/mm3 (4.4-11.0)
[2020-10-27] MEDS: Lidocaine/Epi/Tetracaine 50 ML 1 APPLIC TOPICAL (18:25)
[2020-10-27 18:32] LABS: Anion Gap 7 (5-15); BUN 30 mg/dL (7-18); BUN/Creat Ratio 17.3 RATIO (10-20); Calcium,Total 8.7 mg/dL (8.5-10.1); Chloride 107 mmol/L (98-107); Creatinine, Serum 1.73 mg/dL (0.70-1.30); EST Glomerular Filtration Rate 42 mL/min (>60); Est Glom Filt Rate - Afr Amer 51 mL/min (>60); Estimated Creatinine Clearance 49.49 ml/min; Glucose 105 mg/dL (74-106); Potassium 3.7 mmol/L (3.5-5.1); Sodium Level 140 mmol/L (136-145); Uric Acid 8.1 mg/dL (3.5-7.2)
--- NOTE | 2020-10-27 18:40 | RAD_ITS ---
STUDY: X-RAY - LEFT ELBOW REASON FOR EXAM: Male, 65 years old. Pain and swelling TECHNIQUE: 3 view(s) of the elbow. COMPARISON: None. FINDINGS: Normal visualized humerus, radius and ulna. Normal radiocapitellar and ulnotrochlear articulations. The soft tissue structures are edematous over the medial epicondyle. RAD/Elbow min 3 Views IMPRESSION: Soft tissue swelling. No fracture or dislocation. Electronically Signed: Albert Han MD at 19:01 EDT Tel , Service support ,
--- NOTE | 2020-10-27 18:45 | EDS_ITS ---
HPI History of Present Illness Chief Complaint: Upper Extremity Injury [facility] Medical History (Updated 10/27/20 @ 20:[address] Bobby Thompson MD) Atrial fibrillation CAD (coronary artery disease) Cholelithiasis with chronic cholecystitis COPD (chronic obstructive pulmonary disease) Coronary atherosclerosis of [place] coronary vessel Esophageal reflux history of ischemic stroke HTN (hypertension) Hyperlipidemia Obstructive sleep apnea syndrome Rheumatoid arthritis Screening for malignant neoplasm of intestine severe degenerative arthritis of right hip Home Medications clopidogrel 75 mg PO DAILY 09/03/14 [History Last Taken 04/01/20] amlodipine 5 mg tablet 5 mg PO DAILY 10/05/19 [History Last Taken 04/01/20] atorvastatin 80 mg tablet 80 mg PO DAILY tab 10/05/19 [History Last Taken 03/31/20] ezetimibe 10 mg tablet 10 mg PO DAILY tab 10/05/19 [History Last Taken 03/31/20] furosemide 40 mg tablet 40 mg PO DAILY tab 10/05/19 [History Last Taken 04/01/20] minoxidil 10 mg tablet 5 mg PO BID tab 10/05/19 [History Last Taken 04/01/20] nitroglycerin 0.4 mg sublingual tablet 0.4 mg SUBLINGUAL Q5-15M PRN tab 10/05/19 [History Last Taken Unknown] apixaban 5 mg PO BID 10/24/19 [History Last Taken 04/01/20] amiodarone 200 mg PO DAILY 04/01/20 [History Last Taken 03/31/20] metoprolol tartrate 50 mg PO BID 04/01/20 [History Last Taken 04/01/20] dexamethasone 6 mg PO DAILY #9 tab 04/04/20 [Rx Last Taken Unknown] remdesivir 100 mg IV DAILY vial 04/04/20 [Rx Last Taken Unknown] Allergy/AdvReac Type Severity Reaction Status Date / Time Penicillins Allergy Hives Verified 10/27/20 17:50 Family History Sister Cancer ovarian Brother Diabetes Surgical History History of cardiac catheterization History of colonoscopy (~2014) History of coronary angioplasty History of esophagogastroduodenoscopy (EGD) (~2014) History of heart artery stent History of inguinal hernia repair History of knee joint replacement History of left shoulder replacement History of total left hip arthroplasty History of total right hip arthroplasty Hx of cholecystectomy Social History (Updated 01/23/20 @ 08:[address] Dwayne Bess MD) Smoking Status: Never smoker EXAM Physical Exam Const Vital Signs: 10/27/20 17:48 Temperature 101.3 F H Temperature Source Temporal Pulse Rate 75 Respiratory Rate 20 H Blood Pressure 157/66 H Blood Pressure Mean 96 Pulse Ox 97 Oxygen Delivery Method Room Air MDM MDM MDM Narrative Medical decision making narrative: I discussed the patient's presentation labs with Dr. Caleb Greer of orthopedics. Patient will be admitted to the hospitalist. He is on IV antibiotics. Dr. Portillo Varma will be consulted for further evaluation and possible surgical incision and drainage of the septic bursa. Also further evaluation of the joint. Test results were discussed with the patient. Lab Data Lab results narrative: CBC shows an elevated white count of 15.1. Hemoglobin 12. Chemistries unremarkable gap is 7. He is got known renal insufficiency with a creatinine 1.73. Left elbow x-ray 2 views interpreted by myself shows no acute abnormality. Soft tissue swelling. Is able to aspirate the left elbow bursa. The fluid was quite cloudy and looked infected. Pertinent lab it had gram-positive cocci. Patient's been started on clindamycin also be given IV vancomycin. They are unable to give a cell count. There were no crystals. Cultures pending. Labs: Laboratory Results - last 24 hr 10/27/20 10/27/20 18:00 18:00 WBC 15.1 H RBC 4.06 L Hgb 12.7 L Hct 37.1 L MCV 91.4 MCH 31.3 MCHC 34.2 RDW Std Deviation 46.5 H RDW Coeff of Santhosh 13.7 Plt Count 297 MPV 9.8 Immature Gran % (Auto) 0.300 Neut % (Auto) 85.5 H Lymph % (Auto) 7.0 L [place] % (Auto) 6.8 Eos % (Auto) 0.1 Baso % (Auto) 0.3 Absolute Neuts (auto) 12.9 H Absolute Lymphs (auto) 1.06 Nucleated RBC % 0 Sodium 140 Potassium 3.7 Chloride 107 Carbon Dioxide 26.0 Anion Gap 7 BUN 30 H Creatinine 1.73 H Estim Creat Clear Calc 49.49 Est GFR (MDRD) Af Amer 51 L Est GFR (MDRD) Non-Af 42 L BUN/Creatinine Ratio 17.3 Glucose 105 Uric Acid 8.1 H Calcium 8.7 Radiography Diagnostic Testing: Left elbow shows soft tissue swelling. No acute bony abnormality. 2 views interpreted by myself. Procedures Other Procedures Procedure(s): Aspiration of left elbow bursa: Clean the area with alcohol. Let for local anesthetic. Placed a 19-gauge needle was able aspirate 2 to 3 cc of very cloudy yellowish to purulent fluid. Very concerning for possible infection. Discharge Plan Triage Chief Complaint: Upper Extremity Injury ED Provider: Bobby Thompson Dx/Rx/DC Orders Clinical Impression: Septic bursitis, Leukocytosis Prescriptions: No Action atorvastatin 80 mg tablet 80 mg PO DAILY RF: 0 nitroglycerin 0.4 mg tablet, sublingual 0.4 mg SUBLINGUAL Q5-15M PRN (Reason: cp) RF: 0 amlodipine [Norvasc] 5 mg tablet 5 mg PO DAILY RF: 0 ezetimibe 10 mg tablet 10 mg PO DAILY RF: 0 furosemide 40 mg tablet 40 mg PO DAILY RF: 0 minoxidil 10 mg tablet 5 mg PO BID RF: 0 clopidogrel 75 MG tablet 75 mg PO DAILY RF: 0 apixaban 5 MG tablet 5 mg PO BID RF: 0 amiodarone 200 MG tablet 200 mg PO DAILY RF: 0 metoprolol tartrate 50 MG tablet 50 mg PO BID RF: 0 dexamethasone 4 MG tablet 6 mg PO DAILY Qty: 9 RF: 0 remdesivir 100 MG/20 ML solution 100 mg IV DAILY RF: 0 Primary Care Provider: Vinayak Ontiveros Referrals: Vinayak Ontiveros MD [Primary Care Provider] - Disposition Disposition: Acute Care Hospital [facility]
[2020-10-27 19:02] LABS: Pathologist Comment/Body Fluid May follow
[2020-10-27 20:15] LABS: Body Fluid QC Type(s) BF1Q,BF2Q; Monocytes 3 %; Neutrophil (Segs) 97 %; Source- Body Fluid SYNOVIAL
[2020-10-27 20:45] VITALS: BP 134/56; PULSE 76; RESP 18; TEMP 37.4; O2SAT 97
--- NOTE | 2020-10-27 20:46 | ED.RN ---
BLOOD CULTURES ORDERED AFTER ANTIBIOTIC ALREADY HANGING. DR CASE MADE AWARE, BLOOD CULUTRES OBTAINED AT THIS TIME.
--- NOTE | 2020-10-27 21:11 | PCM.HP.STD ---
HPI - General General Date of Admission: 10/27/20 Date of Service: 10/27/20 Chief Complaint: Left elbow swelling and pain HPI Narrative SHANNON OLSON, is a 65 M who presents to the emergency room at [facility] with swelling over the last 24 hours in his left elbow area, he states that he intermittently has left elbow pain but usually resolves spontaneously, he denies any trauma to his left elbow, he denies any laceration or abrasions to the left elbow. Patient states that he was having no chills or fever at home, he has chronic intermittent muscle aches over his entire body since he had COVID-19 infection last February. Patient has extensive history of coronary artery disease with multiple coronary stent placements. Labs obtained in the emergency room showed an elevated white blood cell count of 15.1, hemoglobin was 12.7, chemistry profile was remarkable for a BUN of 30 and a creatinine of 1.73. Uric acid was 8.1. Patient's left elbow area was aspirated, 2 cc of yellowish thick fluid was removed and sent to the lab for analysis. There were no crystals noted in the fluid. Patient's temperature in the emergency room was 101.3. Patient will be admitted to [place] [address] for septic bursitis of the left elbow, Dr. Greer was contacted and the case was discussed with him. Patient is currently on Eliquis and Plavix, these will be stopped in anticipation of surgical intervention probably on 10/29/2020. [facility] Medical History Atrial fibrillation CAD (coronary artery disease) Cholelithiasis with chronic cholecystitis COPD (chronic obstructive pulmonary disease) Coronary atherosclerosis of [place] coronary vessel Esophageal reflux history of ischemic stroke HTN (hypertension) Hyperlipidemia Obstructive sleep apnea syndrome Rheumatoid arthritis Screening for malignant neoplasm of intestine severe degenerative arthritis of right hip Home Medications clopidogrel 75 mg PO DAILY 09/03/14 [History Last Taken 10/27/20] amlodipine 5 mg tablet 5 mg PO DAILY 10/05/19 [History Last Taken 10/27/20] furosemide 40 mg tablet 40 mg PO DAILY tab 10/05/19 [History Last Taken 10/27/20] minoxidil 10 mg tablet 5 mg PO BID tab 10/05/19 [History Last Taken 10/27/20] nitroglycerin 0.4 mg sublingual tablet 0.4 mg SUBLINGUAL Q5-15M PRN tab 10/05/19 [History Last Taken Unknown] apixaban 5 mg PO BID 10/24/19 [History Last Taken 10/27/20] amiodarone 200 mg PO DAILY 04/01/20 [History Last Taken 10/27/20] metoprolol tartrate 50 mg PO BID 04/01/20 [History Last Taken 10/27/20] lisinopril 20 mg PO DAILY 10/27/20 [History Last Taken 10/27/20] spironolactone [Aldactone] 25 mg PO DAILY 10/27/20 [History Last Taken 10/27/20] Allergy/AdvReac Type Severity Reaction Status Date / Time Penicillins Allergy Hives Verified 10/27/20 17:50 Family History Sister Cancer ovarian Brother Diabetes Surgical History History of cardiac catheterization History of colonoscopy (~2014) History of coronary angioplasty History of esophagogastroduodenoscopy (EGD) (~2014) History of heart artery stent History of inguinal hernia repair History of knee joint replacement History of left shoulder replacement History of total left hip arthroplasty History of total right hip arthroplasty Hx of cholecystectomy Social History (Updated 01/23/20 @ 08:[address] Dwayne Bess MD) Smoking Status: Never smoker ROS Constitutional Constitutional: Denies anorexia, change in weight, fever(s), night sweats or weakness Eyes Eyes: Denies blurry vision, change in vision, discharge from eye(s) or eye pain Cardiovascular Cardiovascular: Denies chest pain, claudication, edema or palpitations Respiratory/Chest Respiratory/Chest: Denies cough, hemoptysis, shortness of breath at rest or shortness of breath with exertion Gastrointestinal Gastrointestinal: Denies abdominal pain, constipation, diarrhea, hematemesis, hematochezia, melena, nausea or vomiting Genitourinary Genitourinary: Denies dysuria, hematuria, urinary frequency, urinary hesitancy, urinary incontinence or urinary urgency Musculoskeletal Musculoskeletal: Reports joint pain, joint swelling and other Details: Redness is and swelling over the left elbow, left proximal forearm, and left distal upper arm ; Denies back pain, joint stiffness, myalgias or neck pain Neurologic Neurologic: Denies abnormal gait, abnormal speech, dizziness, focal weakness, headache(s), loss of vision, numbness, other visual disturbances, paresthesias, syncope or tingling Psychiatric Psychiatric: Denies anxiety, cognitive impairment, depression, irritability, mood swings or suicidal ideation Endocrine Endocrinology: Denies change in body appearance, cold intolerance, excessive sweating, heat intolerance, polydipsia or polyuria Hematologic/Lymphatic Hematologic/Lymphatic: Denies none, anemia, easy bleeding, easy bruising or lymphadenopathy Allergic/Immunologic Allergic/Immunologic: Denies rhinitis, urticaria, eczemia or asthma Vital Signs Vital Signs Vital Signs: 10/27/20 17:48 10/27/20 20:45 Temperature 101.3 F H 99.4 F H Temperature Source Temporal Oral Pulse Rate 75 76 Respiratory Rate 20 H 18 Blood Pressure 157/66 H 134/56 H Blood Pressure Mean 96 82 Pulse Ox 97 97 Oxygen Delivery Method Room Air Room Air Weight Weight: 134.1 kg Body Mass Index (BMI) 37.9 Physical Exam Const alert, oriented x3, no apparent distress, average body habitus and healthy appearing General Appearance: cooperative, well kempt and well developed Orientation / Consciousness: awake, oriented to person, oriented to place and oriented to time HEENT normocephalic, head/scalp atraumatic, hearing grossly normal bilaterally and moist oral mucous membranes Eyes PERRL, EOMs intact bilaterally and conjunctivae normal Neck nuchal rigidity, supple, no JVD, thyroid normal and no carotid bruits General: trachea midline Resp normal respiratory effort, no retractions, no use of accessory muscles and clear to auscultation bilaterally Auscultation: Negative for rales, rhonchi or wheezes Cardio regular rate, regular rhythm, S1 normal heart sound, S2 normal heart sound, no murmurs, no rub, no gallops and no clicks GI normal to inspection, nondistended, normoactive bowel sounds, soft to palpation, non-tender and non-distended Extremity Extremity Narrative: There is generalized swelling and redness of the patient's left elbow area including his left proximal forearm, left distal upper arm area, and the left elbow area proper. There is fluctuance noted over the left elbow Skin Skin Narrative: Redness around the left elbow area is noted including the left proximal forearm and left distal upper arm General Skin Exam: no breakdown Neuro oriented x3, CN's II-XII intact bilaterally, moves all extremities, no focal motor deficits and no sensory deficits noted Sensorium / Orientation: awake and alert Speech: speech normal Psych thought process normal and affect normal Results Lab / Micro Data Result Diagrams: 10/27/20 18:00 10/27/20 18:00 Labs: Laboratory Results - last 24 hr 10/27/20 10/27/20 10/27/20 18:00 18:00 18:00 WBC 15.1 H RBC 4.06 L Hgb 12.7 L Hct 37.1 L MCV 91.4 MCH 31.3 MCHC 34.2 RDW Std Deviation 46.5 H RDW Coeff of Santhosh 13.7 Plt Count 297 MPV 9.8 Immature Gran % (Auto) 0.300 Neut % (Auto) 85.5 H Lymph % (Auto) 7.0 L [place] % (Auto) 6.8 Eos % (Auto) 0.1 Baso % (Auto) 0.3 Absolute Neuts (auto) 12.9 H Absolute Lymphs (auto) 1.06 Nucleated RBC % 0 Sodium 140 Potassium 3.7 Chloride 107 Carbon Dioxide 26.0 Anion Gap 7 BUN 30 H Creatinine 1.73 H Estim Creat Clear Calc 49.49 Est GFR (MDRD) Af Amer 51 L Est GFR (MDRD) Non-Af 42 L BUN/Creatinine Ratio 17.3 Glucose 105 Uric Acid 8.1 H Calcium 8.7 Fluid Source Cancelled Fluid Color Cancelled Fluid Appearance Cancelled Fluid WBC Cancelled Fluid RBC Cancelled Fluid Tot Cell Count Cancelled Fld Polynuclear WBCs # Cancelled Fld Polynuclear WBCs % Cancelled Fluid Mononuclear WBCs Cancelled Fld Mononuclear WBCs % Cancelled Fluid Neutrophils 97 Fluid Monocytes 3 Fluid Crystals SEE PATH REV Fluid Crystal Source SYNOVIAL Fl Crystal Path Review Will follow Fl Pathologist Comment May follow Fluid Comment 2 Cancelled Micro: Microbiology 10/27/20 18:00 Gram Stain - Preliminary Fluid - Bursa Radiology Impression Elbow X-Ray 10/27/20 18:40 IMPRESSION: Soft tissue swelling. No fracture or dislocation. Electronically Signed: Albert Han MD at 19:01 EDT Tel , Service support , Assessment & Plan Assessment/Plan (1) Bursitis of left elbow: PLAN: 1. Septic bursitis of the left elbow-patient will be admitted [facility], he will be placed on meropenem due to his penicillin allergy and vancomycin, he will be seen in consultation by orthopedic surgery, labs will be monitored. Blood cultures were obtained, cultures of the patient's left elbow fluid was obtained, PCR was ordered on the left elbow fluid. #2 coronary artery disease-patient has multiple stents in place, his last stent was 2016, his Plavix will be discontinued due to probable surgery within 48 hours. #3 paroxysmal atrial fib-patient appears to be in normal sinus at this time, patient's Eliquis will be stopped again secondary to impending surgical intervention on the left elbow area #4 essential hypertension-patient will remain on his present medications #5 rheumatoid arthritis-patient has had several joint replacements #6 hyperlipidemia #7 chronic obstructive pulmonary disease by history-patient is supposed to be on CPAP but he has not used it in 2 years, he is noncompliant with using it Charges/Coding Visit Charges Inpatient E&M: 23576 Init Hosp L3
[2020-10-27 21:18] VITALS: BMI 36.8
[2020-10-27 21:19] VITALS: BP 143/66; PULSE 68; RESP 20; TEMP 37.2; O2SAT 97
[2020-10-27 22:06] VITALS: PULSE 68
[2020-10-27] MEDS: Minoxidil 2.5 MG Tablet 5 MG PO (22:06)
[2020-10-27] MEDS: Metoprolol Tartrate 50 MG Tablet PO (22:06)
--- NOTE | 2020-10-27 22:38 | PCM.RX.CS ---
Consult Pharmacy has been consulted to manage selected antiobiotic: Vancomycin Type of Consult: New start Labs: Sodium 140 mmol/L (136-145) 10/27/20 18:00 Potassium 3.7 mmol/L (3.5-5.1) 10/27/20 18:00 Chloride 107 mmol/L (98-107) 10/27/20 18:00 Carbon Dioxide 26.0 mmol/L (21.0-32.0) 10/27/20 18:00 Anion Gap 7 (5-15) 10/27/20 18:00 BUN 30 mg/dL (7-18) H 10/27/20 18:00 Creatinine 1.73 mg/dL (0.70-1.30) H 10/27/20 18:00 Est GFR (MDRD) Af Amer 51 mL/min (>60) L 10/27/20 18:00 Est GFR (MDRD) Non-Af 42 mL/min (>60) L 10/27/20 18:00 BUN/Creatinine Ratio 17.3 RATIO (10-20) 10/27/20 18:00 Glucose 105 mg/dL (74-106) 10/27/20 18:00 Microbiology: Microbiology 10/27/20 18:00 Fluid - Bursa Gram Stain - Preliminary Weight used for dosin.1 kg Estimated Creatinine Clearance: 61.9 Goal Trough: 10-15 mcg/mL Pharmacy Plan for Drug Dosing: Pharmacy Service will continue to monitor and adjust dosing as required. Medications Vancomycin HCl (Vancomycin) 1,000 mg in 200 mls @ 200 mls/hr IV Q12H MELINA Discontinued Medications Vancomycin HCl 1,500 mg/ (Sodium Chloride) 530 mls @ 250 mls/hr IV X1 ONE Stop: 10/27/20 22:13 Last Admin: 10/27/20 21:42 Dose: 250 mls/hr Documented by: Follow-Up Labs: Trough Vancomycin Labs to be done on [date and time ordered]: 10/29 @ 8477
[2020-10-28 03:30] VITALS: BP 131/57; PULSE 62; RESP 20; TEMP 37.1; O2SAT 97
[2020-10-28 05:59] LABS: Absolute Lymphocyte Count 0.98 X10^3/uL (0.83-4.51); Basophil# 0.03 X10^3/uL; Basophil% 0.2 % (0-1); Eosinophil# 0.04 X10^3/uL; Eosinophils% 0.3 % (0-5); Hematocrit 33.8 % (40-54); Lymphocyte # 0.98 X10^3/ul (0.83-4.51); Lymphocyte % 7.4 % (19-41); Mean Corp Hgb Conc 32.5 g/dL (32-36); Mean Corpuscular Hgb 29.9 pg (27.0-32.0); Mean Corpuscular Volume 91.8 fL (80-94); Mean Platelet Vol. 9.7 fl (6.2-12.0); Monocyte# 1.14 X10^3/uL; Monocyte% 8.6 % (0-10); NRBC Flagged by Analyzer 0 % (0-5); Neutrophil # 10.95 X10^3/uL (2.7-7.7); Neutrophil % 83.2 % (47-70); Platelet Count 248 K/mm3 (150-450); RBC Distribution Width CV 13.6 % (11.6-14.6); RBC Distribution Width SD 46.5 fl (35.1-43.9); Red Blood Count 3.68 M/mm3 (4.6-6.2); White Blood Count 13.2 K/mm3 (4.4-11.0)
--- NOTE | 2020-10-28 06:00 | EKG12_ITS ---
Test Reason : AM EKG Blood Pressure : / mmHG Vent. Rate : 060 BPM Atrial Rate : 060 BPM P-R Int : 180 ms QRS Dur : 112 ms QT Int : 464 ms P-R-T Axes : 037 008 019 degrees QTc Int : 464 ms Normal sinus rhythm Inferior infarct , age undetermined, cannot be excluded Abnormal ECG Confirmed by LULU ALVARADO, CATRACHITO ([id number]), metropolitan editor GIA LING ([id number]) on 10/29/2020 10:33:15 AM Referred By: TRINITY Confirmed By:CATRACHITO LAWSON MD
[2020-10-28 06:29] LABS: ALB/GLOB Ratio 0.9 RATIO (0.9-2.4); AST(SGOT) 12 U/L (15-37); Alanine Aminotransfer ALT/SGPT 18 U/L (16-61); Alkaline Phosphatase 77 U/L (45-117); Anion Gap 7 (5-15); BUN 28 mg/dL (7-18); Calcium,Total 8.4 mg/dL (8.5-10.1); Chloride 109 mmol/L (98-107); EST Glomerular Filtration Rate 54 mL/min (>60); Est Glom Filt Rate - Afr Amer 65 mL/min (>60); Estimated Creatinine Clearance 61.16 ml/min; Globulin 3.4 g/dL (2.2-4.2); Glucose 118 mg/dL (74-106); Potassium 3.5 mmol/L (3.5-5.1); Protein, Total 6.4 g/dL (6.4-8.2); Sodium Level 140 mmol/L (136-145)
[2020-10-28] MEDS: Vancomycin IV 1,000 MG/200 ML BAG 200 MG IV (08:31)
--- NOTE | 2020-10-28 09:15 | CON.PCM_ITS ---
Assessment & Plan Assessment/Plan (1) Septic bursitis: PLAN: I spoke with Dr. Govea regarding this patient.. Due to his extensive cardiac history, we will attempt to treat this problem non- operatively. In the event that he may have to be taken ton surgery for I & D of his olecranon bursa, we will obtain cardiology consultation. Will re-check tomorrow to determine his response. HPI Consult Data Date of Consult: 10/28/20 HPI Narrative Reason for Consultation: Left elbow pain HPI Narrative: SHANNON OLSON, is a 65 M who presents with olecranon bursitis of a 2 day duration. He has no elbow pain with motion. He states that he was febrile on admission. He denies N/T/P. [facility] Medical History Atrial fibrillation CAD (coronary artery disease) Cholelithiasis with chronic cholecystitis COPD (chronic obstructive pulmonary disease) Coronary atherosclerosis of [place] coronary vessel Esophageal reflux history of ischemic stroke HTN (hypertension) Hyperlipidemia Obstructive sleep apnea syndrome Rheumatoid arthritis Screening for malignant neoplasm of intestine severe degenerative arthritis of right hip Home Medications clopidogrel 75 mg PO DAILY 09/03/14 [History Last Taken 10/27/20] amlodipine 5 mg tablet 5 mg PO DAILY 10/05/19 [History Last Taken 10/27/20] furosemide 40 mg tablet 40 mg PO DAILY tab 10/05/19 [History Last Taken 10/27/20] minoxidil 10 mg tablet 5 mg PO BID tab 10/05/19 [History Last Taken 10/27/20] nitroglycerin 0.4 mg sublingual tablet 0.4 mg SUBLINGUAL Q5-15M PRN tab 10/05/19 [History Last Taken Unknown] apixaban 5 mg PO BID 10/24/19 [History Last Taken 10/27/20] amiodarone 200 mg PO DAILY 04/01/20 [History Last Taken 10/27/20] metoprolol tartrate 50 mg PO BID 04/01/20 [History Last Taken 10/27/20] lisinopril 20 mg PO DAILY 10/27/20 [History Last Taken 10/27/20] spironolactone [Aldactone] 25 mg PO DAILY 10/27/20 [History Last Taken 10/27/20] Allergy/AdvReac Type Severity Reaction Status Date / Time Penicillins Allergy Hives Verified 10/27/20 17:50 Family History Sister Cancer ovarian Brother Diabetes Surgical History History of cardiac catheterization History of colonoscopy (~2014) History of coronary angioplasty History of esophagogastroduodenoscopy (EGD) (~2014) History of heart artery stent History of inguinal hernia repair History of knee joint replacement History of left shoulder replacement History of total left hip arthroplasty History of total right hip arthroplasty Hx of cholecystectomy Social History (Updated 01/23/20 @ 08:[address] Dwayne Bess MD) Smoking Status: Never smoker Physical Exam Const alert, oriented x3 and no apparent distress Orientation / Consciousness: awake Exam Limitations: no limitations HEENT normocephalic Extremity full ROM, normal capillary refill, no joint enlargement and no calf tenderness Extremity Narrative: Pt has swelling and tenderness with mild warmth about the l eft olecranon bursa. No active drainage. Left elbow ROM is well tolerated. Lab / Micro Data Result Diagrams: 10/28/20 05:20 10/28/20 05:20 Labs: Laboratory Results - last 24 hr 10/27/20 10/27/20 10/27/20 18:00 18:00 18:00 WBC 15.1 H RBC 4.06 L Hgb 12.7 L Hct 37.1 L MCV 91.4 MCH 31.3 MCHC 34.2 RDW Std Deviation 46.5 H RDW Coeff of Santhosh 13.7 Plt Count 297 MPV 9.8 Immature Gran % (Auto) 0.300 Neut % (Auto) 85.5 H Lymph % (Auto) 7.0 L [place] % (Auto) 6.8 Eos % (Auto) 0.1 Baso % (Auto) 0.3 Absolute Neuts (auto) 12.9 H Absolute Lymphs (auto) 1.06 Nucleated RBC % 0 Sodium 140 Potassium 3.7 Chloride 107 Carbon Dioxide 26.0 Anion Gap 7 BUN 30 H Creatinine 1.73 H Estim Creat Clear Calc 49.49 Est GFR (MDRD) Af Amer 51 L Est GFR (MDRD) Non-Af 42 L BUN/Creatinine Ratio 17.3 Glucose 105 Uric Acid 8.1 H Calcium 8.7 Total Bilirubin AST ALT Alkaline Phosphatase Total Protein Albumin Globulin Albumin/Globulin Ratio Fluid Source Cancelled Fluid Color Cancelled Fluid Appearance Cancelled Fluid WBC Cancelled Fluid RBC Cancelled Fluid Tot Cell Count Cancelled Fld Polynuclear WBCs # Cancelled Fld Polynuclear WBCs % Cancelled Fluid Mononuclear WBCs Cancelled Fld Mononuclear WBCs % Cancelled Fluid Neutrophils 97 Fluid Monocytes 3 Fluid Crystals SEE PATH REV Fluid Crystal Source SYNOVIAL Fl Crystal Path Review Will follow Fl Pathologist Comment May follow Fluid Comment 2 Cancelled 10/28/20 10/28/20 05:20 05:20 WBC 13.2 H RBC 3.68 L Hgb 11.0 L Hct 33.8 L MCV 91.8 MCH 29.9 MCHC 32.5 RDW Std Deviation 46.5 H RDW Coeff of Santhosh 13.6 Plt Count 248 MPV 9.7 Immature Gran % (Auto) 0.300 Neut % (Auto) 83.2 H Lymph % (Auto) 7.4 L [place] % (Auto) 8.6 Eos % (Auto) 0.3 Baso % (Auto) 0.2 Absolute Neuts (auto) 11.0 H Absolute Lymphs (auto) 0.98 Nucleated RBC % 0 Sodium 140 Potassium 3.5 Chloride 109 H Carbon Dioxide 24.0 Anion Gap 7 BUN 28 H Creatinine 1.40 H Estim Creat Clear Calc 61.16 Est GFR (MDRD) Af Amer 65 Est GFR (MDRD) Non-Af 54 L BUN/Creatinine Ratio 20.0 Glucose 118 H Uric Acid Calcium 8.4 L Total Bilirubin 2.20 H AST 12 L ALT 18 Alkaline Phosphatase 77 Total Protein 6.4 Albumin 3.0 L Globulin 3.4 Albumin/Globulin Ratio 0.9 Fluid Source Fluid Color Fluid Appearance Fluid WBC Fluid RBC Fluid Tot Cell Count Fld Polynuclear WBCs # Fld Polynuclear WBCs % Fluid Mononuclear WBCs Fld Mononuclear WBCs % Fluid Neutrophils Fluid Monocytes Fluid Crystals Fluid Crystal Source Fl Crystal Path Review Fl Pathologist Comment Fluid Comment 2 Micro: Microbiology 10/27/20 18:00 Gram Stain - Preliminary Fluid - Bursa Radiology Impression Elbow X-Ray 10/27/20 18:40 IMPRESSION: Soft tissue swelling. No fracture or dislocation. Electronically Signed: Albert Han MD at 19:01 EDT Tel , Service support ,
[2020-10-28 09:35] VITALS: BP 152/76; PULSE 66; RESP 18; TEMP 36.6; O2SAT 95
[2020-10-28 09:39] VITALS: PULSE 66
[2020-10-28] MEDS: Furosemide 40 MG Tablet PO (09:39)
[2020-10-28] MEDS: Amiodarone 200 MG Tablet PO (09:39)
[2020-10-28] MEDS: amLODIPine 5 MG Tablet PO (09:39)
[2020-10-28] MEDS: Metoprolol Tartrate 50 MG Tablet PO ×2 (09:39→20:52)
[2020-10-28] MEDS: Ezetimibe 10 MG Tablet PO (09:40)
[2020-10-28] MEDS: Minoxidil 2.5 MG Tablet 5 MG PO ×2 (09:40→20:52)
--- NOTE | 2020-10-28 10:50 | CASEMGMT ---
RN CM Face to Face with patient for initial transition planning/care coordination assessment. RN CM introduced self and role at [facility]. Patient lying in bed, alert and oriented. Patient willing to participate in assessment and is able to answer all questions appropriately. Care providers, pharmacy, and demographics verified. Patient wishes to discharge home, denies need for home health at this time. Patient states he has no further needs or concerns at this time. CM to follow for discharge planning needs that may arise. PCP: [place] Specialists: Santana Hassan, Final Inspection Supervisor; Liza Hassan, Pulmonologsit both with [facility] Pharmacy: [facility] Insurance: [facility], [employer] Prescription Benefit: yes Living Will/HPOA: yes, Sowmya Dickerson LNOK: , brother Living Arrangements: Patient lives alone in a single story home wiht 3 steps and railing to enter the home. Patient states he is independent at home. Transportation: self/brother/Nephew DME/HHC: Patient states he has walker, cane, crutches, raised toilet, BSC, and shower chair. Patient denies previous HHC or SNF Disposition Plan: Patient to discharge home with family support and follow-up plans in place. Sheela WOOTEN, RN, CM
--- NOTE | 2020-10-28 11:21 | PCM.RX.CS ---
Consult Pharmacy has been consulted to manage selected antiobiotic: Vancomycin Type of Consult: Follow-up Suspected Infection: Skin/Soft tissue Labs: Sodium 140 mmol/L (136-145) 10/28/20 05:20 Potassium 3.5 mmol/L (3.5-5.1) 10/28/20 05:20 Chloride 109 mmol/L (98-107) H 10/28/20 05:20 Carbon Dioxide 24.0 mmol/L (21.0-32.0) 10/28/20 05:20 Anion Gap 7 (5-15) 10/28/20 05:20 BUN 28 mg/dL (7-18) H 10/28/20 05:20 Creatinine 1.40 mg/dL (0.70-1.30) H 10/28/20 05:20 Est GFR (MDRD) Af Amer 65 mL/min (>60) 10/28/20 05:20 Est GFR (MDRD) Non-Af 54 mL/min (>60) L 10/28/20 05:20 BUN/Creatinine Ratio 20.0 RATIO (10-20) 10/28/20 05:20 Glucose 118 mg/dL (74-106) H 10/28/20 05:20 Microbiology: Microbiology 10/27/20 18:00 Fluid - Bursa Gram Stain - Final Goal Trough: 10-15 mcg/mL Pharmacy Plan for Drug Dosing: DAILY ASSESSMENT Current Vancomycin Dose: 1000MG Q12 Number of Doses Received: 1500MG X1, 1000MG X1 Current Renal Function: SCR 1.4, CRCL 76.5 ML/MIN USING ADJ B OF 102.8KG Renal Function Trend: IMPROVED Any Change in Vanc Plan: YES, IMPROVED RENAL FUNCTION. WILL INCREASE DOSE TO 1250MG Q12 PER POLICY AND PUSH TROUGH BACK 1 DOSE TO ADJUST FOR STEADY STATE ON NEW DOSE Pending Level: 10/29/20 @ 2030 Pharmacy Service will continue to monitor and adjust dosing as required.
[2020-10-28 13:31] LABS: Pathologist Review Reviewed
[2020-10-28 15:11] VITALS: BP 147/72; PULSE 63; RESP 18; TEMP 36.8; O2SAT 96
--- NOTE | 2020-10-28 15:23 | VDUE_ITS ---
Reason For Study: Swelling Left Proximal Left jugular vein is spontaneous, widely patent, phasic, with no intraluminal echogenicity noted. Left subclavian vein is spontaneous, widely patent, phasic, with no intraluminal echogenicity noted. Left Arm Left axillary vein is spontaneous, patent, phasic, competent, compressible and demonstrates augmentation. Left brachial vein is compressible. Left cephalic vein is compressible. Left basilic vein is compressible. Left Lower Arm Left radial vein is compressible. Left ulnar vein is compressible. Patient Safety Prelim to MS3. VL/Venous Duplex US, Unilateral Interpretation Summary No evidence for acute deep venous thrombosis[left] upper extremity with patent and compressible cephalic and basilic veins. Ordering Physician: Sydney Smith Referring Physician: Vinayak Ontiveros Performed By: Sheela Holcomb RVT ?
--- NOTE | 2020-10-28 15:32 | PCM.PN.HOSP ---
Subjective Subjective Patient was seen and examined. He complains of increased swelling in his left upper extremity. He denied any fever or chills. Denies any chest pain, dizziness or palpitations. Objective Data Objective Data Vital Signs: Vital Signs Temp Pulse Resp BP Pulse Ox 98.3 F 63 18 147/72 H 96 10/28/20 15:11 10/28/20 15:11 10/28/20 15:11 10/28/20 15:11 10/28/20 15:11 Oxygen Delivery Method Room Air Weight: 132.1 kg Body Mass Index (BMI) 36.8 Intake & Output: Intake and Output for Last 24 Hours 10/26/20 10/27/20 10/28/20 23:59 23:59 23:59 Intake Total 106 / 256 1257.5 / 1257.5 Balance 106 / 256 1257.5 / 1257.5 Lab / Micro Data Result Diagrams: 10/28/20 05:20 10/28/20 05:20 Labs: Laboratory Results - last 24 hr 10/27/20 10/27/20 10/27/20 18:00 18:00 18:00 WBC 15.1 H RBC 4.06 L Hgb 12.7 L Hct 37.1 L MCV 91.4 MCH 31.3 MCHC 34.2 RDW Std Deviation 46.5 H RDW Coeff of Santhosh 13.7 Plt Count 297 MPV 9.8 Immature Gran % (Auto) 0.300 Neut % (Auto) 85.5 H Lymph % (Auto) 7.0 L [place] % (Auto) 6.8 Eos % (Auto) 0.1 Baso % (Auto) 0.3 Absolute Neuts (auto) 12.9 H Absolute Lymphs (auto) 1.06 Nucleated RBC % 0 Sodium 140 Potassium 3.7 Chloride 107 Carbon Dioxide 26.0 Anion Gap 7 BUN 30 H Creatinine 1.73 H Estim Creat Clear Calc 49.49 Est GFR (MDRD) Af Amer 51 L Est GFR (MDRD) Non-Af 42 L BUN/Creatinine Ratio 17.3 Glucose 105 Uric Acid 8.1 H Calcium 8.7 Total Bilirubin AST ALT Alkaline Phosphatase Total Protein Albumin Globulin Albumin/Globulin Ratio Fluid Source Cancelled Fluid Color Cancelled Fluid Appearance Cancelled Fluid WBC Cancelled Fluid RBC Cancelled Fluid Tot Cell Count Cancelled Fld Polynuclear WBCs # Cancelled Fld Polynuclear WBCs % Cancelled Fluid Mononuclear WBCs Cancelled Fld Mononuclear WBCs % Cancelled Fluid Neutrophils 97 Fluid Monocytes 3 Fluid Crystals SEE PATH REV Fluid Crystal Source SYNOVIAL Fl Crystal Path Review Reviewed Fl Pathologist Comment May follow Fluid Comment 2 Cancelled 10/28/20 10/28/20 05:20 05:20 WBC 13.2 H RBC 3.68 L Hgb 11.0 L Hct 33.8 L MCV 91.8 MCH 29.9 MCHC 32.5 RDW Std Deviation 46.5 H RDW Coeff of Santhosh 13.6 Plt Count 248 MPV 9.7 Immature Gran % (Auto) 0.300 Neut % (Auto) 83.2 H Lymph % (Auto) 7.4 L [place] % (Auto) 8.6 Eos % (Auto) 0.3 Baso % (Auto) 0.2 Absolute Neuts (auto) 11.0 H Absolute Lymphs (auto) 0.98 Nucleated RBC % 0 Sodium 140 Potassium 3.5 Chloride 109 H Carbon Dioxide 24.0 Anion Gap 7 BUN 28 H Creatinine 1.40 H Estim Creat Clear Calc 61.16 Est GFR (MDRD) Af Amer 65 Est GFR (MDRD) Non-Af 54 L BUN/Creatinine Ratio 20.0 Glucose 118 H Uric Acid Calcium 8.4 L Total Bilirubin 2.20 H AST 12 L ALT 18 Alkaline Phosphatase 77 Total Protein 6.4 Albumin 3.0 L Globulin 3.4 Albumin/Globulin Ratio 0.9 Fluid Source Fluid Color Fluid Appearance Fluid WBC Fluid RBC Fluid Tot Cell Count Fld Polynuclear WBCs # Fld Polynuclear WBCs % Fluid Mononuclear WBCs Fld Mononuclear WBCs % Fluid Neutrophils Fluid Monocytes Fluid Crystals Fluid Crystal Source Fl Crystal Path Review Fl Pathologist Comment Fluid Comment 2 Micro: Microbiology 10/27/20 18:00 Fluid - Bursa Gram Stain - Final 10/27/20 18:00 Fluid - Bursa Body Fluid Culture - Preliminary Staphylococcus aureus Radiography Diagnostic Testing: Radiology Impression Elbow X-Ray 10/27/20 18:40 IMPRESSION: Soft tissue swelling. No fracture or dislocation. Electronically Signed: Albert Han MD at 19:01 EDT Tel , Service support , Physical Exam Narrative General: Alert, Oriented x3, Cooperative, No apparent distress HEENT: Atraumatic, PERRLA, EOMI, Normocephalic Oral: Moist Mucosa Neck: Supple Lungs: Normal air movement, Diminished Cardiovascular: Regular rate, Regular Rhythm, Normal S1, Normal S2, No murmurs Abdomen: Bowel Sounds Present, Soft, Non Tender, Non-Distended, No Hepato-splenomegaly Extremities: LUE is swollen more than RUE, tender, dressing over the left elbow, bogginess of left elbow Skin: No rashes Neurological: Cranial nerves II-XII grossly intact, Neuro grossly intact Psych/Mental Status: Normal Affect, Appropriate Assessment & Plan Assessment/Plan (1) Septic bursitis: (2) CAD (coronary artery disease): QUALIFIERS: Coronary Disease-Associated Artery/Lesion type: [place] artery [place] vs. transplanted heart: [place] heart Associated angina: without angina Qualified Code(s): I25.10 - Atherosclerotic heart disease of [place] coronary artery without angina pectoris (3) Atrial fibrillation: QUALIFIERS: Atrial fibrillation type: paroxysmal Qualified Code(s): I48.0 - Paroxysmal atrial fibrillation (4) HTN (hypertension): QUALIFIERS: Hypertension type: essential hypertension Qualified Code(s): I10 - Essential (primary) hypertension (5) Hyperlipidemia: QUALIFIERS: Hyperlipidemia type: unspecified Qualified Code(s): E78.5 - Hyperlipidemia, unspecified (6) Rheumatoid arthritis: QUALIFIERS: Rheumatoid arthritis location: unspecified site Rheumatoid factor presence: unspecified presence Qualified Code(s): M06.9 - Rheumatoid arthritis, unspecified PLAN: 1. Acute septic bursitis of the left elbow, left upper extremity is more swollen Continue on IV vancomycin and meropenem Appreciate orthopedic consult; will continue off Eliquis and Plavix We will get Doppler ultrasound of the left upper extremity Cardiology consult for cardiac clearance 2. Rest of chronic medical condition including CAD status post stents, paroxysmal atrial fibrillation, hypertension, rheumatoid arthritis all complicates intermediate medications reviewed and continued
[2020-10-28 20:36] VITALS: BP 137/59; PULSE 65; RESP 16; TEMP 36.9; O2SAT 95
[2020-10-28 20:52] VITALS: PULSE 65
[2020-10-28] MEDS: Atorvastatin Calcium 80 MG Tablet PO (20:52)
[2020-10-29 02:49] VITALS: BP 129/72; PULSE 56; RESP 18; TEMP 36.6; O2SAT 97
[2020-10-29 07:07] LABS: Absolute Lymphocyte Count 0.89 X10^3/uL (0.83-4.51); Absolute Neutrophil Count 8.7 X10^3/uL (2.0-7.7); Basophil# 0.04 X10^3/uL; Basophil% 0.4 % (0-1); Eosinophil# 0.17 X10^3/uL; Eosinophils% 1.6 % (0-5); Hematocrit 33.6 % (40-54); Hemoglobin 11.1 g/dL (13.0-16.5); Lymphocyte # 0.89 X10^3/ul (0.83-4.51); Lymphocyte % 8.3 % (19-41); Mean Corpuscular Hgb 30.5 pg (27.0-32.0); Mean Corpuscular Volume 92.3 fL (80-94); Mean Platelet Vol. 9.6 fl (6.2-12.0); Monocyte# 0.93 X10^3/uL; Monocyte% 8.7 % (0-10); NRBC Flagged by Analyzer 0 % (0-5); Neutrophil # 8.65 X10^3/uL (2.7-7.7); Neutrophil % 80.7 % (47-70); Platelet Count 235 K/mm3 (150-450); RBC Distribution Width CV 13.5 % (11.6-14.6); RBC Distribution Width SD 45.5 fl (35.1-43.9); Red Blood Count 3.64 M/mm3 (4.6-6.2); White Blood Count 10.7 K/mm3 (4.4-11.0)
--- NOTE | 2020-10-29 07:35 | PN.HOSP_ITS ---
Subjective Subjective Patient was seen and examined. No acute events overnight. Denies any fever or chills. Left upper extremity swelling is improving. Doppler ultrasound of the upper extremity was negative for acute DVT. Objective Data Objective Data Vital Signs: Vital Signs Temp Pulse Resp BP Pulse Ox 97.8 F 56 L 18 129/72 H 97 10/29/20 02:49 10/29/20 02:49 10/29/20 02:49 10/29/20 02:49 10/29/20 02:49 Oxygen Delivery Method Room Air Weight: 132.1 kg Body Mass Index (BMI) 36.8 Intake & Output: Intake and Output for Last 24 Hours 10/27/20 10/28/20 10/29/20 23:59 23:59 23:59 Intake Total 106 / 256 1827.25 / 1827.25 276 / 276 Balance 106 / 256 1827.25 / 1827.25 276 / 276 Lab / Micro Data Result Diagrams: 10/29/20 06:45 10/29/20 06:45 Labs: Laboratory Results - last 24 hr 10/27/20 10/29/20 18:00 06:45 WBC 10.7 RBC 3.64 L Hgb 11.1 L Hct 33.6 L MCV 92.3 MCH 30.5 MCHC 33.0 RDW Std Deviation 45.5 H RDW Coeff of Santhosh 13.5 Plt Count 235 MPV 9.6 Immature Gran % (Auto) 0.300 Neut % (Auto) 80.7 H Lymph % (Auto) 8.3 L [place] % (Auto) 8.7 Eos % (Auto) 1.6 Baso % (Auto) 0.4 Absolute Neuts (auto) 8.7 H Absolute Lymphs (auto) 0.89 Nucleated RBC % 0 Fl Crystal Path Review Reviewed Micro: Microbiology 10/27/20 18:00 Fluid - Bursa Gram Stain - Final 10/27/20 18:00 Fluid - Bursa Body Fluid Culture - Preliminary Staphylococcus aureus Radiography Diagnostic Testing: Radiology Impression Venous Doppler Study 10/28/20 15:23 Interpretation Summary No evidence for acute deep venous thrombosis[left] upper extremity with patent and compressible cephalic and basilic veins. Ordering Physician: Sydney Smith Referring Physician: Vinayak Ontiveros Performed By: Sheela Holcomb, RVT ? Physical Exam Narrative General: Alert, Oriented x3, Cooperative, No apparent distress HEENT: Atraumatic, PERRLA, EOMI, Normocephalic Oral: Moist Mucosa Neck: Supple Lungs: Normal air movement, Diminished Cardiovascular: Regular rate, Regular Rhythm, Normal S1, Normal S2, No murmurs Abdomen: Bowel Sounds Present, Soft, Non Tender, Non-Distended, No Hepato- splenomegaly Extremities: LUE is swollen more than RUE, tender, dressing over the left elbow, bogginess of left elbow improving Skin: No rashes Neurological: Cranial nerves II-XII grossly intact, Neuro grossly intact Psych/Mental Status: Normal Affect, Appropriate Assessment & Plan Assessment/Plan (1) Septic bursitis: (2) CAD (coronary artery disease): QUALIFIERS: Coronary Disease-Associated Artery/Lesion type: [place] artery [place] vs. transplanted heart: [place] heart Associated angina: without angina Qualified Code(s): I25.10 - Atherosclerotic heart disease of [place] coronary artery without angina pectoris (3) Atrial fibrillation: QUALIFIERS: Atrial fibrillation type: paroxysmal Qualified Code(s): I48.0 - Paroxysmal atrial fibrillation (4) HTN (hypertension): QUALIFIERS: Hypertension type: essential hypertension Qualified Code(s): I10 - Essential (primary) hypertension (5) Hyperlipidemia: QUALIFIERS: Hyperlipidemia type: unspecified Qualified Code(s): E78.5 - Hyperlipidemia, unspecified (6) Rheumatoid arthritis: QUALIFIERS: Rheumatoid arthritis location: unspecified site Rheumatoid factor presence: unspecified presence Qualified Code(s): M06.9 - Rheumatoid arthritis, unspecified PLAN: 1. Acute septic bursitis of the left elbow No fevers, leukocytosis is improved to 10.7 from 15.1 on admission Doppler ultrasound of the left upper extremity is negative for acute DVT Cultures from olecranon bursa aspiration growing staph aureus Continue on IV vancomycin and meropenem for now We will consult ID Continue off Eliquis and Plavix We will get Doppler ultrasound of the left upper extremity Orthopedic and cardiology consulted 2. Rest of chronic medical condition including CAD status post stents, paroxysmal atrial fibrillation, hypertension, rheumatoid arthritis all com plicates retirement medications reviewed and continued Charges/Coding Visit Charges Inpatient E&M: 42427 Subs Hosp L2
--- NOTE | 2020-10-29 07:36 | PCM.PN.ORT ---
Subjective Subjective Patient reports that left elbow is till painful posteriorly, but ROM is improving. Redness and swelling are improving and he has had no fevers or chills. Objective Data Objective Data Vital Signs: Vital Signs Temp Pulse Resp BP Pulse Ox 97.8 F 56 L 18 129/72 H 97 10/29/20 02:49 10/29/20 02:49 10/29/20 02:49 10/29/20 02:49 10/29/20 02:49 Oxygen Delivery Method Room Air Weight: 291 lb 3.69 oz Body Mass Index (BMI) 36.8 Intake & Output: Intake and Output for Last 24 Hours 10/27/20 10/28/20 10/29/20 23:59 23:59 23:59 Intake Total 106 / 256 1827.25 / 1827.25 276 / 276 Balance 106 / 256 1827.25 / 1827.25 276 / 276 Lab / Micro Data Result Diagrams: 10/29/20 06:45 10/28/20 05:20 Labs: Laboratory Results - last 24 hr 10/27/20 10/29/20 18:00 06:45 WBC 10.7 RBC 3.64 L Hgb 11.1 L Hct 33.6 L MCV 92.3 MCH 30.5 MCHC 33.0 RDW Std Deviation 45.5 H RDW Coeff of Santhosh 13.5 Plt Count 235 MPV 9.6 Immature Gran % (Auto) 0.300 Neut % (Auto) 80.7 H Lymph % (Auto) 8.3 L [place] % (Auto) 8.7 Eos % (Auto) 1.6 Baso % (Auto) 0.4 Absolute Neuts (auto) 8.7 H Absolute Lymphs (auto) 0.89 Nucleated RBC % 0 Fl Crystal Path Review Reviewed Micro: Microbiology 10/27/20 18:00 Fluid - Bursa Gram Stain - Final 10/27/20 18:00 Fluid - Bursa Body Fluid Culture - Preliminary Staphylococcus aureus Radiography Diagnostic Testing: Radiology Impression Venous Doppler Study 10/28/20 15:23 Interpretation Summary No evidence for acute deep venous thrombosis[left] upper extremity with patent and compressible cephalic and basilic veins. Ordering Physician: Sydney Smith Referring Physician: Vinayak Ontiveros Performed By: Sheela Holcomb RVT ? Physical Exam Const alert and oriented x3 General Appearance: cooperative Extremity Left Upper Extremity: elbow joint inspection (Olecranon bursa still sollen, but improved), palpation (tender to palpation at olecranon bursa but not anterioriorly along joint), ROM (-5 to 100. No pain injoint with ROM) and neurovascular exam (intact) Assessment & Plan Assessment/Plan (1) Bursitis of left elbow: PLAN: Patient is responding to IV antibiotics. Given his cardiac history, I would treat with IV ATBx for one more day, then d/c home on po ATBx with follow up in office early next week. If this worsens, he may need to be taken to surgery for formal I & D of his left olecranon bursa despite his cardiac history.
[2020-10-29 07:43] LABS: ALB/GLOB Ratio 0.8 RATIO (0.9-2.4); AST(SGOT) 10 U/L (15-37); Alanine Aminotransfer ALT/SGPT 20 U/L (16-61); Albumin, Serum 2.8 g/dL (3.2-5.0); Alkaline Phosphatase 80 U/L (45-117); Anion Gap 5 (5-15); BUN 22 mg/dL (7-18); BUN/Creat Ratio 18.5 RATIO (10-20); Calcium,Total 8.5 mg/dL (8.5-10.1); Chloride 111 mmol/L (98-107); Creatinine, Serum 1.19 mg/dL (0.70-1.30); EST Glomerular Filtration Rate 65 mL/min (>60); Est Glom Filt Rate - Afr Amer 79 mL/min (>60); Estimated Creatinine Clearance 71.95 ml/min; Globulin 3.6 g/dL (2.2-4.2); Glucose 120 mg/dL (74-106); Potassium 3.7 mmol/L (3.5-5.1); Protein, Total 6.4 g/dL (6.4-8.2); Sodium Level 140 mmol/L (136-145)
--- NOTE | 2020-10-29 08:46 | ECHOCS_ITS ---
Reason For Study: CAD/ASHD Procedure This was a 2D Doppler, Color Flow transthoracic echocardiogram. The study was technically difficult. Contrast injection was performed. Exam performed portable in patient room. Left Ventricle Normal LV size. Severe concentric left ventricular hypertrophy. Left ventricular systolic function is normal. The estimated ejection fraction is 60 %. Diastolic function is indeterminate. No regional wall motion abnormalities noted. Right Ventricle Normal RV size. Normal systolic function. Atria The left atrium is moderately enlarged. The right atrium is mildly enlarged. No doppler evidence for ASD. Mitral Valve There is no mitral annular calcification. Normal mitral valve. Trivial mitral valve insufficiency. Tricuspid Valve Normal tricuspid valve. Trivial tricuspid valve insufficiency. Unable to estimate RV systolic pressure/pulmonary artery pressure due to technically difficult study. Aortic Valve Trisinus/trileaflet aortic valve. Normal aortic valve. Pulmonic Valve The pulmonic valve is not well visualized. Trivial pulmonic valve insufficiency. Great Vessels Borderline enlarged aortic root. Pericardium/Pleural No pericardial effusion. Medication Diluted definity 3ml given slow IV push to enhance endocardial definition. MMode/2D Measurements & Calculations LVIDd: 5.7 cm IVSd: 1.8 cm Ao root diam: 3.9 cm LVIDs: 3.3 cm LVPWd: 1.7 cm LA dimension: 5.9 cm FS: 41.2 % LAV(MOD-bp): 126.3 ml LA A4 area: 31.6 cm2 RA A4 area: 29.2 cm2 LAV(MOD-bp) Indexed: 49.5 ml/m2 LAV(MOD-sp2): 109.1 ml LAV(MOD-sp4): 124.6 ml Time Measurements MV dec time: 0.24 sec Doppler Measurements & Calculations MV E max liu: 109.3 cm/sec Lat Peak E' Liu: 10.0 cm/sec Med Peak E' Liu: 8.4 cm/sec MV A max liu: 61.9 cm/sec E/E' lat: 10.9 E/E' med: 13.0 MV E/A: 1.8 MV V2 max: 117.5 cm/sec MV P1/2t max liu: 118.5 cm/sec Ao V2 max: 182.0 cm/sec MV max P.5 mmHg MV P1/2t: 115.7 msec Ao max P.3 mmHg MV V2 mean: 60.7 cm/sec MV dec slope: 299.8 cm/sec2 MV mean P.8 mmHg MV V2 VTI: 42.0 cm MVA(P1/2t): 1.9 cm2 LV V1 max: 140.6 cm/sec PA V2 max: 120.4 cm/sec LV V1 max P.9 mmHg ECHO/Echo Complete W/ Contrast Interpretation Summary The study was technically difficult. Contrast injection was performed. Left ventricular systolic function is normal. The estimated ejection fraction is 60 %. Severe concentric left ventricular hypertrophy. The left atrium is moderately enlarged. The right atrium is mildly enlarged. Trivial mitral valve insufficiency. Trivial tricuspid valve insufficiency. Trivial pulmonic valve insufficiency. Borderline enlarged aortic root. Unable to estimate RV systolic pressure/pulmonary artery pressure due to techni marie difficult study. Diastolic function is indeterminate. Ordering Physician: Jeramie Knox Referring Physician: Vinayak Ontiveros Performed By: Bro Fields RCS
[2020-10-29 09:03] VITALS: BP 131/67; PULSE 56; RESP 18; TEMP 36.7
[2020-10-29] MEDS: Amiodarone 200 MG Tablet PO (09:05)
[2020-10-29] MEDS: amLODIPine 5 MG Tablet PO (09:05)
[2020-10-29] MEDS: Furosemide 40 MG Tablet PO (09:05)
[2020-10-29] MEDS: Allopurinol 100 MG Tablet PO (09:05)
[2020-10-29] MEDS: Minoxidil 2.5 MG Tablet 5 MG PO ×2 (09:06→20:58)
[2020-10-29] MEDS: 0.9% Saline Lock 10 ML Syringe IV (09:07)
[2020-10-29 09:09] VITALS: PULSE 56
[2020-10-29] MEDS: Metoprolol Tartrate 50 MG Tablet PO ×2 (09:09→20:58)
[2020-10-29] MEDS: Ezetimibe 10 MG Tablet PO (09:13)
--- NOTE | 2020-10-29 09:22 | NURSING ---
Release of medical records form signed by patient. Form faxed to [facility] ([facility]) requesting records from Director Sterile Processing Dr. Hassan fax:[phone]
--- NOTE | 2020-10-29 10:27 | CASEMGMT ---
Pt screened with [facility] Palliative Care Screening Tool d/t strata 3, pt did not meet criteria.
--- NOTE | 2020-10-29 13:43 | PCM.CONS.C ---
Assessment & Plan Assessment/Plan (1) Coronary atherosclerosis of [place] coronary vessel: QUALIFIERS: Associated angina: without angina [place] vs. transplanted heart: [place] heart Qualified Code(s): I25.10 - Atherosclerotic heart disease of [place] coronary artery without angina pectoris PLAN: At the present time he appears without any acute symptoms or adverse events. He will continue medical management as deemed appropriate. A copy of his [facility] cardiovascular records will be requested for continuity of care. (2) S/P PTCA (percutaneous transluminal coronary angioplasty): PLAN: He does have a history of PCI. Again he appears without any acute symptoms at this time. He will continue medical management and follow-up. (3) Atrial fibrillation: QUALIFIERS: Atrial fibrillation type: paroxysmal Qualified Code(s): I48.0 - Paroxysmal atrial fibrillation PLAN: He has a history of atrial fibrillation. At the present time he appears to be in sinus rhythm. He will continue medical management and follow-up. His anticoagulant therapy will need to be adjusted in around the time of his surgical procedures. (4) NSVT (nonsustained ventricular tachycardia): PLAN: He does have a event monitor from June of this year, interpreted by Dr. Campos, as demonstrating underlying sinus rhythm with nonsustained VT. He states he was evaluated by his primary cardiology for this and describes being evaluated by an gate tender. He was told to continue medical management. He states there was no plans for any invasive evaluation or care or device placement. (5) Hyperlipidemia: QUALIFIERS: Hyperlipidemia type: unspecified Qualified Code(s): E78.5 - Hyperlipidemia, unspecified PLAN: He should continue medical therapy and follow-up. (6) HTN (hypertension): QUALIFIERS: Hypertension type: essential hypertension Qualified Code(s): I10 - Essential (primary) hypertension PLAN: His blood pressure be monitored and he can continue medical adjustment as necessary. (7) Bursitis of left elbow: PLAN: Procedures. However based upon what appears to be his stable clinical statusHe is continuing evaluation by internal medicine and orthopedic surgery. At the present time he is receiving IV antibiotic therapy. If his issue does not improve he may need surgical I&D. In anticipation for that his antiplatelet therapy and anticoagulant therapy have been placed on hold. He should continue other medications as he is able. He should have close monitoring of his cardiac rate, rhythm, and blood pressure during and following his surgical procedure. An attempt should be made to avoid significant fluctuations in his vital signs as well as his volume status. Based upon his cardiovascular history he would be at increased risk for adverse cardiovascular events from noncardiac with no acute cardiovascular findings and with close monitoring and continue medical management hopefully these risk can be kept a minimum. Addt'l Comments The patient's case has been discussed reviewed with patient and Dr. Smith. This note was generated using a voice recognition system and there may be incorrect words, spelling or punctuation that were not noted when reviewing the office note prior to saving. HPI Consult Data Date of Consult: 10/29/20 HPI Narrative HPI Narrative: SHANNON OLSON, is a 65 year old white male who presents presents for cardiovascular consultation based upon concerns of a history of underlying CAD, PCI, paroxysmal atrial fibrillation, wide-complex tachycardia/nonsustained ventricular tachycardia, hyperlipidemia, and hypertension and preoperative cardiovascular assessment for possible left elbow orthopedic surgery. The patient follows with [facility] cardiology for his aforementioned conditions. He states he has been evaluated both noninvasively and invasively. He also believes he has been evaluated by electrophysiology for his underlying cardiac dysrhythmias and has continued conservative medical management with no EPS type procedures. To the best of his knowledge he has been doing well as he describes no ongoing chest discomfort suspicious for angina pectoris and has had no overt issues of orthopnea or PND suspicious for CHF or pulmonary edema and there has been no ongoing palpitations, near-syncope, or syncope. He states in general he has just not felt well since he contracted COVID-19. He notes his whole body has ached on and off since that diagnosis. He has presented for concerns of his left elbow. He states it is intermittently swollen. There have been concerns of a left elbow bursitis which may or may not require surgical incision and drainage. In the meantime he has been on antibiotic therapy. Since being in the hospital he did have an ECG performed. He was in sinus rhythm with poor R wave progression. There was an inferior my pattern of indeterminate age cannot be excluded. He is also undergone additional evaluation with a transthoracic echocardiogram. The results are as noted below. [facility] Medical History (Updated 10/29/20 @ 13:[address] Jeramie Knox MD) Atrial fibrillation CAD (coronary artery disease) Cholelithiasis with chronic cholecystitis COPD (chronic obstructive pulmonary disease) Coronary atherosclerosis of [place] coronary vessel Esophageal reflux history of ischemic stroke HTN (hypertension) Hyperlipidemia NSVT (nonsustained ventricular tachycardia) Obstructive sleep apnea syndrome Rheumatoid arthritis Screening for malignant neoplasm of intestine severe degenerative arthritis of right hip Home Medications clopidogrel 75 mg PO DAILY 09/03/14 [History Last Taken 10/27/20] amlodipine 5 mg tablet 5 mg PO DAILY 10/05/19 [History Last Taken 10/27/20] furosemide 40 mg tablet 40 mg PO DAILY tab 10/05/19 [History Last Taken 10/27/20] minoxidil 10 mg tablet 5 mg PO BID tab 10/05/19 [History Last Taken 10/27/20] nitroglycerin 0.4 mg sublingual tablet 0.4 mg SUBLINGUAL Q5-15M PRN tab 10/05/19 [History Last Taken Unknown] apixaban 5 mg PO BID 10/24/19 [History Last Taken 10/27/20] amiodarone 200 mg PO DAILY 04/01/20 [History Last Taken 10/27/20] metoprolol tartrate 50 mg PO BID 04/01/20 [History Last Taken 10/27/20] lisinopril 20 mg PO DAILY 10/27/20 [History Last Taken 10/27/20] spironolactone [Aldactone] 25 mg PO DAILY 10/27/20 [History Last Taken 10/27/20] Allergy/AdvReac Type Severity Reaction Status Date / Time Penicillins Allergy Hives Verified 10/27/20 17:50 Family History Sister Cancer ovarian Brother Diabetes Surgical History (Updated 10/29/20 @ 13:[address] Jeramie Knox MD) History of cardiac catheterization History of colonoscopy (~2014) History of coronary angioplasty History of esophagogastroduodenoscopy (EGD) (~2014) History of heart artery stent History of inguinal hernia repair History of knee joint replacement History of left shoulder replacement History of total left hip arthroplasty History of total right hip arthroplasty Hx of cholecystectomy S/P PTCA (percutaneous transluminal coronary angioplasty) Social History (Updated 01/23/20 @ 08:[address] Dwayne Bess MD) Smoking Status: Never smoker ROS Constitutional Constitutional: Reports as per HPI Eyes Eyes: Reports as per HPI ENT HEENT: Reports as per HPI Cardiovascular Cardiovascular: Reports as per HPI Respiratory/Chest Respiratory/Chest: Reports as per HPI Gastrointestinal Gastrointestinal: Reports as per HPI Musculoskeletal Musculoskeletal: Reports joint pain Neurologic Neurologic: Reports as per HPI Psychiatric Psychiatric: Reports as per HPI Physical Exam Const alert, oriented x3, no apparent distress and healthy appearing Orientation / Consciousness: awake HEENT normocephalic, head/scalp atraumatic and hearing grossly normal bilaterally Eyes PERRL and EOMs intact bilaterally Neck full ROM and supple Chest inspection of chest normal Resp normal respiratory effort and clear to auscultation bilaterally Cardio regular rate, regular rhythm, S1 normal heart sound, S2 normal heart sound, no murmurs, no rub and no gallops GI normal to inspection, nondistended, normoactive bowel sounds Extremity no pedal edema Neuro oriented x3, moves all extremities, no focal motor deficits and no sensory deficits noted Psych mental status grossly normal Objective Data Vital Signs: Vital Signs Temp Pulse Resp BP Pulse Ox 98.1 F 56 L 18 131/67 H 97 10/29/20 09:03 10/29/20 09:09 10/29/20 09:03 10/29/20 09:03 10/29/20 02:49 Oxygen Delivery Method Room Air Weight: 291 lb 3.69 oz Body Mass Index (BMI) 36.8 Intake & Output: Intake and Output for Last 24 Hours 10/27/20 10/28/20 10/29/20 23:59 23:59 23:59 Intake Total 106 / 256 1827.25 / 1827.25 551 / 551 Balance 106 / 256 1827.25 / 1827.25 551 / 551 Lab / Micro Data Result Diagrams: 10/29/20 06:45 10/29/20 06:45 Labs: Laboratory Results - last 24 hr 10/29/20 10/29/20 06:45 06:45 WBC 10.7 RBC 3.64 L Hgb 11.1 L Hct 33.6 L MCV 92.3 MCH 30.5 MCHC 33.0 RDW Std Deviation 45.5 H RDW Coeff of Santhosh 13.5 Plt Count 235 MPV 9.6 Immature Gran % (Auto) 0.300 Neut % (Auto) 80.7 H Lymph % (Auto) 8.3 L [place] % (Auto) 8.7 Eos % (Auto) 1.6 Baso % (Auto) 0.4 Absolute Neuts (auto) 8.7 H Absolute Lymphs (auto) 0.89 Nucleated RBC % 0 Sodium 140 Potassium 3.7 Chloride 111 H Carbon Dioxide 24.0 Anion Gap 5 BUN 22 H Creatinine 1.19 Estim Creat Clear Calc 71.95 Est GFR (MDRD) Af Amer 79 Est GFR (MDRD) Non-Af 65 BUN/Creatinine Ratio 18.5 Glucose 120 H Calcium 8.5 Total Bilirubin 1.30 H AST 10 L ALT 20 Alkaline Phosphatase 80 Total Protein 6.4 Albumin 2.8 L Globulin 3.6 Albumin/Globulin Ratio 0.8 L Micro: Microbiology 10/27/20 18:00 Fluid - Bursa Gram Stain - Final 10/27/20 18:00 Fluid - Bursa Body Fluid Culture - Final Staphylococcus aureus Cardiology Labs/Tests 10/29/20 06:45: WBC 10.7, RBC 3.64 L, Hgb 11.1 L, Hct 33.6 L, MCV 92.3, MCH 30.5, MCHC 33.0, Plt Count 235, MPV 9.6, Immature Gran % (Auto) 0.300, Neut % (Auto) 80.7 H, Lymph % (Auto) 8.3 L, [place] % (Auto) 8.7, Eos % (Auto) 1.6, Baso % (Auto) 0.4, Absolute Neuts (auto) 8.7 H, Nucleated RBC % 0 10/29/20 06:45: Sodium 140, Potassium 3.7, Chloride 111 H, Carbon Dioxide 24.0, Anion Gap 5, BUN 22 H, Creatinine 1.19, Est GFR (MDRD) Af Amer 79, Est GFR (MDRD) Non-Af 65, BUN/Creatinine Ratio 18.5, Glucose 120 H, Calcium 8.5, Total Bilirubin 1.30 H Rhythm: Sinus rhythm EKG: As noted above ECHO: Interpretation Summary The study was technically difficult. Contrast injection was performed. Left ventricular systolic function is normal. The estimated ejection fraction is 60 %. Severe concentric left ventricular hypertrophy. The left atrium is moderately enlarged. The right atrium is mildly enlarged. Trivial mitral valve insufficiency. Trivial tricuspid valve insufficiency. Trivial pulmonic valve insufficiency. Borderline enlarged aortic root. Unable to estimate RV systolic pressure/pulmonary artery pressure due to technically difficult study. Diastolic function is indeterminate. Radiography Diagnostic Testing: Radiology Impression Venous Doppler Study 10/28/20 15:23 Interpretation Summary No evidence for acute deep venous thrombosis[left] upper extremity with patent and compressible cephalic and basilic veins. Ordering Physician: Sydney Smith Referring Physician: Vinayak Ontiveros Performed By: Sehela Holcomb RVT ?
[2020-10-29 14:55] VITALS: BP 142/73; PULSE 60; RESP 18; TEMP 36.4; O2SAT 97
[2020-10-29 20:30] VITALS: BP 159/76; PULSE 64; RESP 16; TEMP 37.3; O2SAT 95
[2020-10-29 20:40] LABS: Vancomycin, Trough Level 12.9 ug/mL (5.0-15.0)
[2020-10-29 20:58] VITALS: BP 159/76; PULSE 64
[2020-10-29] MEDS: Atorvastatin Calcium 80 MG Tablet PO (20:58)
--- NOTE | 2020-10-29 21:43 | PCM.RX.CS ---
Consult Pharmacy has been consulted to manage selected antiobiotic: Vancomycin Type of Consult: Follow-up Suspected Infection: Sepsis Labs: Sodium 140 mmol/L (136-145) 10/29/20 06:45 Potassium 3.7 mmol/L (3.5-5.1) 10/29/20 06:45 Chloride 111 mmol/L (98-107) H 10/29/20 06:45 Carbon Dioxide 24.0 mmol/L (21.0-32.0) 10/29/20 06:45 Anion Gap 5 (5-15) 10/29/20 06:45 BUN 22 mg/dL (7-18) H 10/29/20 06:45 Creatinine 1.19 mg/dL (0.70-1.30) 10/29/20 06:45 Est GFR (MDRD) Af Amer 79 mL/min (>60) 10/29/20 06:45 Est GFR (MDRD) Non-Af 65 mL/min (>60) 10/29/20 06:45 BUN/Creatinine Ratio 18.5 RATIO (10-20) 10/29/20 06:45 Glucose 120 mg/dL (74-106) H 10/29/20 06:45 Vancomycin Trough 12.9 ug/mL (5.0-15.0) 10/29/20 20:15 Microbiology: Microbiology 10/27/20 18:00 Fluid - Bursa Gram Stain - Final 10/27/20 18:00 Fluid - Bursa Body Fluid Culture - Final Staphylococcus aureus Goal Trough: 10-15 mcg/mL Pharmacy Plan for Drug Dosing: Pharmacy Service will continue to monitor and adjust dosing as required. TROUGH 12.9 IN RANGE NO CHANGES. FOLLOW UP TROUGH IN 4 DAYS Follow-Up Labs: Trough Vancomycin Labs to be done on [date and time ordered]: 11/02 @ 2027
[2020-10-30] VITALS (7 sets, daily range): BP systolic 128–155; BP diastolic 58–78; PULSE 52–64; RESP 16–18; TEMP 36.7–37.1; O2SAT 96–98
[2020-10-30 06:24] LABS: Absolute Lymphocyte Count 1.23 X10^3/uL (0.83-4.51); Absolute Neutrophil Count 6.8 X10^3/uL (2.0-7.7); Basophil# 0.05 X10^3/uL; Basophil% 0.6 % (0-1); Eosinophil# 0.15 X10^3/uL; Eosinophils% 1.7 % (0-5); Hematocrit 35.8 % (40-54); Hemoglobin 11.4 g/dL (13.0-16.5); Lymphocyte # 1.23 X10^3/ul (0.83-4.51); Lymphocyte % 13.7 % (19-41); Mean Corp Hgb Conc 31.8 g/dL (32-36); Mean Corpuscular Hgb 29.8 pg (27.0-32.0); Mean Corpuscular Volume 93.7 fL (80-94); Mean Platelet Vol. 9.6 fl (6.2-12.0); Monocyte# 0.65 X10^3/uL; Monocyte% 7.3 % (0-10); NRBC Flagged by Analyzer 0 % (0-5); Neutrophil # 6.84 X10^3/uL (2.7-7.7); Neutrophil % 76.4 % (47-70); Platelet Count 256 K/mm3 (150-450); RBC Distribution Width CV 13.3 % (11.6-14.6); Red Blood Count 3.82 M/mm3 (4.6-6.2)
[2020-10-30 06:54] LABS: ALB/GLOB Ratio 0.7 RATIO (0.9-2.4); AST(SGOT) 14 U/L (15-37); Alanine Aminotransfer ALT/SGPT 29 U/L (16-61); Albumin, Serum 2.8 g/dL (3.2-5.0); Alkaline Phosphatase 82 U/L (45-117); Anion Gap 3 (5-15); BUN 20 mg/dL (7-18); BUN/Creat Ratio 17.9 RATIO (10-20); Calcium,Total 8.7 mg/dL (8.5-10.1); Chloride 112 mmol/L (98-107); Creatinine, Serum 1.12 mg/dL (0.70-1.30); EST Glomerular Filtration Rate 70 mL/min (>60); Est Glom Filt Rate - Afr Amer 85 mL/min (>60); Estimated Creatinine Clearance 76.45 ml/min; Globulin 3.9 g/dL (2.2-4.2); Glucose 109 mg/dL (74-106); Potassium 4.4 mmol/L (3.5-5.1); Protein, Total 6.7 g/dL (6.4-8.2); Sodium Level 142 mmol/L (136-145)
[2020-10-30] MEDS: Allopurinol 100 MG Tablet PO (08:07)
--- NOTE | 2020-10-30 10:42 | PCM.PN.HOSP ---
Subjective Subjective Patient was seen and examined. No acute events overnight. He denied any new complaints. Objective Data Objective Data Vital Signs: Vital Signs Temp Pulse Resp BP Pulse Ox 98.6 F 59 L 18 152/77 H 96 10/30/20 07:56 10/30/20 07:56 10/30/20 07:56 10/30/20 07:56 10/30/20 07:56 Oxygen Delivery Method Room Air Weight: 132.1 kg Body Mass Index (BMI) 36.8 Intake & Output: Intake and Output for Last 24 Hours 10/28/20 10/29/20 10/30/20 23:59 23:59 23:59 Intake Total 1827.25 / 1827.25 1018.75 / 1018.75 174.50 / 174.50 Balance 1827.25 / 1827.25 1018.75 / 1018.75 174.50 / 174.50 Lab / Micro Data Result Diagrams: 10/30/20 06:00 10/30/20 06:00 Labs: Laboratory Results - last 24 hr 10/29/20 10/30/20 10/30/20 20:15 06:00 06:00 WBC 9.0 RBC 3.82 L Hgb 11.4 L Hct 35.8 L MCV 93.7 MCH 29.8 MCHC 31.8 L RDW Std Deviation 46.0 H RDW Coeff of Santhosh 13.3 Plt Count 256 MPV 9.6 Immature Gran % (Auto) 0.300 Neut % (Auto) 76.4 H Lymph % (Auto) 13.7 L [place] % (Auto) 7.3 Eos % (Auto) 1.7 Baso % (Auto) 0.6 Absolute Neuts (auto) 6.8 Absolute Lymphs (auto) 1.23 Nucleated RBC % 0 Sodium 142 Potassium 4.4 Chloride 112 H Carbon Dioxide 27.0 Anion Gap 3 L BUN 20 H Creatinine 1.12 Estim Creat Clear Calc 76.45 Est GFR (MDRD) Af Amer 85 Est GFR (MDRD) Non-Af 70 BUN/Creatinine Ratio 17.9 Glucose 109 H Calcium 8.7 Total Bilirubin 1.30 H AST 14 L ALT 29 Alkaline Phosphatase 82 Total Protein 6.7 Albumin 2.8 L Globulin 3.9 Albumin/Globulin Ratio 0.7 L Vancomycin Trough 12.9 Micro: Microbiology 10/27/20 20:44 Blood Culture (Wb) - Left Hand Blood Culture - Preliminary No growth in 48 hours. 10/27/20 20:37 Blood Culture (Wb) - Anticubital Right Blood Culture - Preliminary No growth in 48 hours. 10/27/20 18:00 Fluid - Bursa Gram Stain - Final 10/27/20 18:00 Fluid - Bursa Body Fluid Culture - Final Staphylococcus aureus Radiography Diagnostic Testing: Radiology Impression Echocardiogram 10/29/20 08:46 Interpretation Summary The study was technically difficult. Contrast injection was performed. Left ventricular systolic function is normal. The estimated ejection fraction is 60 %. Severe concentric left ventricular hypertrophy. The left atrium is moderately enlarged. The right atrium is mildly enlarged. Trivial mitral valve insufficiency. Trivial tricuspid valve insufficiency. Trivial pulmonic valve insufficiency. Borderline enlarged aortic root. Unable to estimate RV systolic pressure/pulmonary artery pressure due to technically difficult study. Diastolic function is indeterminate. Ordering Physician: Jeramie Knox Referring Physician: Vinayak Ontiveros Performed By: Bro Fields RCS Physical Exam Narrative General: Alert, Oriented x3, Cooperative, No apparent distress HEENT: Atraumatic, PERRLA, EOMI, Normocephalic Oral: Moist Mucosa Neck: Supple Lungs: Normal air movement, Diminished Cardiovascular: Regular rate, Regular Rhythm, Normal S1, Normal S2, No murmurs Abdomen: Bowel Sounds Present, Soft, Non Tender, Non-Distended, No Hepato-splenomegaly Extremities: LUE is swollen more than RUE, tender, dressing over the left elbow, bogginess of left elbow improving Skin: No rashes Neurological: Cranial nerves II-XII grossly intact, Neuro grossly intact Psych/Mental Status: Normal Affect, Appropriate Assessment & Plan Assessment/Plan (1) Septic bursitis: (2) CAD (coronary artery disease): QUALIFIERS: Coronary Disease-Associated Artery/Lesion type: [place] artery [place] vs. transplanted heart: [place] heart Associated angina: without angina Qualified Code(s): I25.10 - Atherosclerotic heart disease of [place] coronary artery without angina pectoris (3) Atrial fibrillation: QUALIFIERS: Atrial fibrillation type: paroxysmal Qualified Code(s): I48.0 - Paroxysmal atrial fibrillation (4) HTN (hypertension): QUALIFIERS: Hypertension type: essential hypertension Qualified Code(s): I10 - Essential (primary) hypertension (5) Hyperlipidemia: QUALIFIERS: Hyperlipidemia type: unspecified Qualified Code(s): E78.5 - Hyperlipidemia, unspecified (6) Rheumatoid arthritis: QUALIFIERS: Rheumatoid arthritis location: unspecified site Rheumatoid factor presence: unspecified presence Qualified Code(s): M06.9 - Rheumatoid arthritis, unspecified PLAN: 1. Acute septic bursitis of the left elbow, slowly improving No fevers, leukocytosis is improved to 9.0 from 15.1 on admission Doppler ultrasound of the left upper extremity is negative for acute DVT Cultures from olecranon bursa aspiration growing staph aureus Continue on IV vancomycin and meropenem for now ID consulted Continue off Eliquis and Plavix; patient last took his Plavix on 10/27/20 Orthopedic and cardiology consulted 2. Rest of chronic medical condition including CAD status post stents, paroxysmal atrial fibrillation, hypertension, rheumatoid arthritis all complicates [facility] medications reviewed and continued Charges/Coding Visit Charges Inpatient E&M: 06328 Subs Hosp L2
[2020-10-30] MEDS: Minoxidil 2.5 MG Tablet 5 MG PO ×2 (10:47→21:49)
[2020-10-30] MEDS: amLODIPine 5 MG Tablet PO (10:48)
[2020-10-30] MEDS: Amiodarone 200 MG Tablet PO (10:48)
[2020-10-30] MEDS: Metoprolol Tartrate 50 MG Tablet PO ×2 (10:48→21:49)
[2020-10-30] MEDS: Furosemide 40 MG Tablet PO (10:48)
[2020-10-30] MEDS: Ezetimibe 10 MG Tablet PO (10:53)
--- NOTE | 2020-10-30 13:28 | CON.PCM.ID_ITS ---
Assessment & Plan Assessment/Plan (1) Bursitis of left elbow: PLAN: MSSA L elbow septic bursitis - narrow abx to cefazolin, reports rash with PCN. Recommended he get covid shot, has been having symptoms of long covid since 03/2020 infection. He will think about it. If no plan for surgery, ok for home with 3 weeks po doxycycline 100mg bid. Will follow, thank you HPI Consult Data Date of Consult: 10/30/20 HPI Narrative HPI Narrative: SHANNON OLSON, is a 65 M with h/o CAD, presented 10/27 with one day of progressive L elbow pain, redness, swelling. No inciting event, no drainage. Developed fever, came to ED, aspiration done, seen by ortho, admitted on vanc/meropenem. Arm feeling better slowly, ROM improved, fever resolved. Had covid 03/2020, since then with decreased lung function and migratory whole body pain. Has not gotten covid shot. Pt at long covid clinic at [facility]. Full ROS performed and neg except as noted above. [facility] Medical History Atrial fibrillation CAD (coronary artery disease) Cholelithiasis with chronic cholecystitis COPD (chronic obstructive pulmonary disease) Coronary atherosclerosis of [place] coronary vessel Esophageal reflux history of ischemic stroke HTN (hypertension) Hyperlipidemia NSVT (nonsustained ventricular tachycardia) Obstructive sleep apnea syndrome Rheumatoid arthritis Screening for malignant neoplasm of intestine severe degenerative arthritis of right hip Home Medications clopidogrel 75 mg PO DAILY 09/03/14 [History Last Taken 10/27/20] amlodipine 5 mg tablet 5 mg PO DAILY 10/05/19 [History Last Taken 10/27/20] furosemide 40 mg tablet 40 mg PO DAILY tab 10/05/19 [History Last Taken 10/27/20] minoxidil 10 mg tablet 5 mg PO BID tab 10/05/19 [History Last Taken 10/27/20] nitroglycerin 0.4 mg sublingual tablet 0.4 mg SUBLINGUAL Q5-15M PRN tab 10/05/19 [History Last Taken Unknown] apixaban 5 mg PO BID 10/24/19 [History Last Taken 10/27/20] amiodarone 200 mg PO DAILY 04/01/20 [History Last Taken 10/27/20] metoprolol tartrate 50 mg PO BID 04/01/20 [History Last Taken 10/27/20] lisinopril 20 mg PO DAILY 10/27/20 [History Last Taken 10/27/20] spironolactone [Aldactone] 25 mg PO DAILY 10/27/20 [History Last Taken 10/27/20] Allergy/AdvReac Type Severity Reaction Status Date / Time Penicillins Allergy Hives Verified 10/27/20 17:50 Family History Sister Cancer ovarian Brother Diabetes Surgical History (Updated 10/29/20 @ 13:[address] Jeramie Knox MD) History of cardiac catheterization History of colonoscopy (~2014) History of coronary angioplasty History of esophagogastroduodenoscopy (EGD) (~2014) History of heart artery stent History of inguinal hernia repair History of knee joint replacement History of left shoulder replacement History of total left hip arthroplasty History of total right hip arthroplasty Hx of cholecystectomy S/P PTCA (percutaneous transluminal coronary angioplasty) Social History (Updated 01/23/20 @ 08:[address] Dwayne Bess MD) Smoking Status: Never smoker Physical Exam Const alert, oriented x3 and no apparent distress General Appearance: cooperative HEENT head/scalp atraumatic Eyes PERRL and EOMs intact bilaterally Neck supple and No nodes Resp normal air movement and clear to auscultation bilaterally Auscultation: diminished lung sounds Cardio regular rate and regular rhythm GI normal to inspection, nondistended, normoactive bowel sounds Extremity no clubbing, cyanosis or edema Skin Skin Narrative: L elbow with swelling, mild tenderness, warmth, limited ROM Neuro CN's II-XII intact bilaterally Lab / Micro Data Result Diagrams: 10/30/20 06:00 10/30/20 06:00 Labs: Laboratory Results - last 24 hr 10/29/20 10/30/20 10/30/20 20:15 06:00 06:00 WBC 9.0 RBC 3.82 L Hgb 11.4 L Hct 35.8 L MCV 93.7 MCH 29.8 MCHC 31.8 L RDW Std Deviation 46.0 H RDW Coeff of Santhosh 13.3 Plt Count 256 MPV 9.6 Immature Gran % (Auto) 0.300 Neut % (Auto) 76.4 H Lymph % (Auto) 13.7 L [place] % (Auto) 7.3 Eos % (Auto) 1.7 Baso % (Auto) 0.6 Absolute Neuts (auto) 6.8 Absolute Lymphs (auto) 1.23 Nucleated RBC % 0 Sodium 142 Potassium 4.4 Chloride 112 H Carbon Dioxide 27.0 Anion Gap 3 L BUN 20 H Creatinine 1.12 Estim Creat Clear Calc 76.45 Est GFR (MDRD) Af Amer 85 Est GFR (MDRD) Non-Af 70 BUN/Creatinine Ratio 17.9 Glucose 109 H Calcium 8.7 Total Bilirubin 1.30 H AST 14 L ALT 29 Alkaline Phosphatase 82 Total Protein 6.7 Albumin 2.8 L Globulin 3.9 Albumin/Globulin Ratio 0.7 L Vancomycin Trough 12.9 Micro: Microbiology 10/27/20 20:44 Blood Culture - Preliminary Blood Culture (Wb) - Left Hand No growth in 48 hours. 10/27/20 20:37 Blood Culture - Preliminary Blood Culture (Wb) - Anticubital Right No growth in 48 hours. Radiology Impression Echocardiogram 10/29/20 08:46 Interpretation Summary The study was technically difficult. Contrast injection was performed. Left ventricular systolic function is normal. The estimated ejection fraction is 60 %. Severe concentric left ventricular hypertrophy. The left atrium is moderately enlarged. The right atrium is mildly enlarged. Trivial mitral valve insufficiency. Trivial tricuspid valve insufficiency. Trivial pulmonic valve insufficiency. Borderline enlarged aortic root. Unable to estimate RV systolic pressure/pulmonary artery pressure due to technically difficult study. Diastolic function is indeterminate. Ordering Physician: Jeramie Knox Referring Physician: Vinayak Ontiveros Performed By: Bro Fields RCS
[2020-10-30] MEDS: Cefazolin 2 GM in 0.9% Normal Saline 100 ML IV ×2 (14:24→21:49)
--- NOTE | 2020-10-30 14:27 | PCM.PN.ORT ---
Subjective Subjective Patient sitting at bedside. Patient is having little no pain at this time. Patient feels that he has had continued improvement of the redness and swelling. Patient states that he wish Dr. Greer just take him to surgery and remove this bursa from his elbow. He feels it will come back again. This time patient has no other complaints. Objective Data Objective Data Vital Signs: Vital Signs Temp Pulse Resp BP Pulse Ox 98.6 F 64 18 151/72 H 96 10/30/20 07:56 10/30/20 10:48 10/30/20 07:56 10/30/20 10:48 10/30/20 07:56 Oxygen Delivery Method Room Air Weight: 132.1 kg Body Mass Index (BMI) 36.8 Intake & Output: Intake and Output for Last 24 Hours 10/28/20 10/29/20 10/30/20 23:59 23:59 23:59 Intake Total 1827.25 / 1827.25 1018.75 / 1018.75 503.95 / 503.95 Balance 1827.25 / 1827.25 1018.75 / 1018.75 503.95 / 503.95 Lab / Micro Data Result Diagrams: 10/30/20 06:00 10/30/20 06:00 Labs: Laboratory Results - last 24 hr 10/29/20 10/30/20 10/30/20 20:15 06:00 06:00 WBC 9.0 RBC 3.82 L Hgb 11.4 L Hct 35.8 L MCV 93.7 MCH 29.8 MCHC 31.8 L RDW Std Deviation 46.0 H RDW Coeff of Santhosh 13.3 Plt Count 256 MPV 9.6 Immature Gran % (Auto) 0.300 Neut % (Auto) 76.4 H Lymph % (Auto) 13.7 L [place] % (Auto) 7.3 Eos % (Auto) 1.7 Baso % (Auto) 0.6 Absolute Neuts (auto) 6.8 Absolute Lymphs (auto) 1.23 Nucleated RBC % 0 Sodium 142 Potassium 4.4 Chloride 112 H Carbon Dioxide 27.0 Anion Gap 3 L BUN 20 H Creatinine 1.12 Estim Creat Clear Calc 76.45 Est GFR (MDRD) Af Amer 85 Est GFR (MDRD) Non-Af 70 BUN/Creatinine Ratio 17.9 Glucose 109 H Calcium 8.7 Total Bilirubin 1.30 H AST 14 L ALT 29 Alkaline Phosphatase 82 Total Protein 6.7 Albumin 2.8 L Globulin 3.9 Albumin/Globulin Ratio 0.7 L Vancomycin Trough 12.9 Micro: Microbiology 10/27/20 20:44 Blood Culture (Wb) - Left Hand Blood Culture - Preliminary No growth in 48 hours. 10/27/20 20:37 Blood Culture (Wb) - Anticubital Right Blood Culture - Preliminary No growth in 48 hours. 10/27/20 18:00 Fluid - Bursa Gram Stain - Final 10/27/20 18:00 Fluid - Bursa Body Fluid Culture - Final Staphylococcus aureus Radiography Diagnostic Testing: Radiology Impression Echocardiogram 10/29/20 08:46 Interpretation Summary The study was technically difficult. Contrast injection was performed. Left ventricular systolic function is normal. The estimated ejection fraction is 60 %. Severe concentric left ventricular hypertrophy. The left atrium is moderately enlarged. The right atrium is mildly enlarged. Trivial mitral valve insufficiency. Trivial tricuspid valve insufficiency. Trivial pulmonic valve insufficiency. Borderline enlarged aortic root. Unable to estimate RV systolic pressure/pulmonary artery pressure due to technically difficult study. Diastolic function is indeterminate. Ordering Physician: Jeramie Knox Referring Physician: Vinayak Ontiveros Performed By: Bro Fields RCS Physical Exam Narrative Patient sitting comfortably in a chair at bedside. Patient is afebrile, vital signs are stable as noted in the medical record. Patient's left elbow has continued swelling directly over the olecranon bursa region. It does extend down into the proximal ulnar aspect of the forearm. It does not appear to be erythematous at this time. It is nontender to palpation. Patient has full extension of the elbow flexion to 95 degrees, patient has good supination pronation of the hand and wrist without pain. 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 Assessment & Plan Assessment/Plan (1) Bursitis of left elbow: PLAN: 1. Continue antibiotic treatments as prescribed 2. Continue all pain medication 3. We will continue to observe, patient will follow back with Dr. Greer in 1 week 4. Goal is to resolve infection without surgical intervention, due to patient's medical history.
--- NOTE | 2020-10-30 17:24 | PN.CARD_ITS ---
Subjective Subjective The patient is awake and alert. He has no new acute concerns from a cardiovascular standpoint. His main concerns continue to revolve around his left elbow related issues. Objective Data Vital Signs: Vital Signs Temp Pulse Resp BP Pulse Ox 98.1 F 52 L 18 140/78 H 98 10/30/20 14:37 10/30/20 14:37 10/30/20 14:37 10/30/20 14:37 10/30/20 14:37 Oxygen Delivery Method Room Air Weight: 291 lb 3.69 oz Body Mass Index (BMI) 36.8 Intake & Output: Intake and Output for Last 24 Hours 10/28/20 10/29/20 10/30/20 23:59 23:59 23:59 Intake Total 1827.25 / 1827.25 1018.75 / 1018.75 1003.95 / 1003.95 Balance 1827.25 / 1827.25 1018.75 / 1018.75 1003.95 / 1003.95 Lab / Micro Data Result Diagrams: 10/30/20 06:00 10/30/20 06:00 Labs: Laboratory Results - last 24 hr 10/29/20 10/30/20 10/30/20 20:15 06:00 06:00 WBC 9.0 RBC 3.82 L Hgb 11.4 L Hct 35.8 L MCV 93.7 MCH 29.8 MCHC 31.8 L RDW Std Deviation 46.0 H RDW Coeff of Santhosh 13.3 Plt Count 256 MPV 9.6 Immature Gran % (Auto) 0.300 Neut % (Auto) 76.4 H Lymph % (Auto) 13.7 L [place] % (Auto) 7.3 Eos % (Auto) 1.7 Baso % (Auto) 0.6 Absolute Neuts (auto) 6.8 Absolute Lymphs (auto) 1.23 Nucleated RBC % 0 Sodium 142 Potassium 4.4 Chloride 112 H Carbon Dioxide 27.0 Anion Gap 3 L BUN 20 H Creatinine 1.12 Estim Creat Clear Calc 76.45 Est GFR (MDRD) Af Amer 85 Est GFR (MDRD) Non-Af 70 BUN/Creatinine Ratio 17.9 Glucose 109 H Calcium 8.7 Total Bilirubin 1.30 H AST 14 L ALT 29 Alkaline Phosphatase 82 Total Protein 6.7 Albumin 2.8 L Globulin 3.9 Albumin/Globulin Ratio 0.7 L Vancomycin Trough 12.9 Micro: Microbiology 10/27/20 18:00 Fluid - Bursa Gram Stain - Final 10/27/20 18:00 Fluid - Bursa Body Fluid Culture - Final Staphylococcus aureus 10/27/20 18:00 Fluid - Bursa Anaerobic Culture - Final No anaerobic bacteria isolated. 10/27/20 20:44 Blood Culture (Wb) - Left Hand Blood Culture - Preliminary No growth in 48 hours. 10/27/20 20:37 Blood Culture (Wb) - Anticubital Right Blood Culture - Preliminary No growth in 48 hours. Cardiology Labs/Tests 10/30/20 06:00: WBC 9.0, RBC 3.82 L, Hgb 11.4 L, Hct 35.8 L, MCV 93.7, MCH 29.8, MCHC 31.8 L, Plt Count 256, MPV 9.6, Immature Gran % (Auto) 0.300, Neut % (Auto) 76.4 H, Lymph % (Auto) 13.7 L, [place] % (Auto) 7.3, Eos % (Auto) 1.7, Baso % (Auto) 0.6, Absolute Neuts (auto) 6.8, Nucleated RBC % 0 10/30/20 06:00: Sodium 142, Potassium 4.4, Chloride 112 H, Carbon Dioxide 27.0, Anion Gap 3 L, BUN 20 H, Creatinine 1.12, Est GFR (MDRD) Af Amer 85, Est GFR (MDRD) Non-Af 70, BUN/Creatinine Ratio 17.9, Glucose 109 H, Calcium 8.7, Total Bilirubin 1.30 H Physical Exam Const alert, oriented x3, no apparent distress and healthy appearing Orientation / Consciousness: awake HEENT normocephalic, head/scalp atraumatic and hearing grossly normal bilaterally Eyes PERRL and EOMs intact bilaterally Neck full ROM and supple Chest inspection of chest normal Resp normal respiratory effort and clear to auscultation bilaterally Cardio regular rate, regular rhythm, S1 normal heart sound, S2 normal heart sound, no murmurs, no rub and no gallops GI normal to inspection, nondistended, normoactive bowel sounds Extremity no pedal edema Neuro oriented x3, moves all extremities, no focal motor deficits and no sensory deficits noted Psych mental status grossly normal Assessment & Plan Assessment/Plan (1) Coronary atherosclerosis of [place] coronary vessel: QUALIFIERS: [place] vs. transplanted heart: [place] heart Associated angina: without angina Qualified Code(s): I25.10 - Atherosclerotic heart disease of [place] coronary artery without angina pectoris PLAN: At the present time he appears without any acute symptoms or adverse events. He will continue medical management as deemed appropriate. A request was made by the [facility] hospitalist group to retrieve [facility] cardiovascular records. Thus far there appears to be no records for review. (2) S/P PTCA (percutaneous transluminal coronary angioplasty): PLAN: He does have a history of PCI. Again he appears without any acute symptoms at this time. He will continue medical management and follow-up. (3) Atrial fibrillation: QUALIFIERS: Atrial fibrillation type: paroxysmal Qualified Code(s): I48.0 - Paroxysmal atrial fibrillation PLAN: He has a history of atrial fibrillation. At the present time he appears to be in sinus rhythm. He will continue medical management and follow-up. His anticoagulant therapy will need to be adjusted in around the time of his surgical procedures. If his surgical procedure is been postponed indefinitely then he can resume his antiplatelet and anticoagulant therapies unless otherwise contraindicated. (4) NSVT (nonsustained ventricular tachycardia): PLAN: He does have a event monitor from June of this year, interpreted by Dr. Campos, as demonstrating underlying sinus rhythm with nonsustained VT. He states he was evaluated by his primary cardiology for this and describes being evaluated by an aerobics instructor. He was told to continue medical management. He states there was no plans for any invasive evaluation or care or device placement. (5) Hyperlipidemia: QUALIFIERS: Hyperlipidemia type: unspecified Qualified Code(s): E78.5 - Hyperlipidemia, unspecified PLAN: He should continue medical therapy and follow-up. (6) HTN (hypertension): QUALIFIERS: Hypertension type: essential hypertension Qualified Code(s): I10 - Essential (primary) hypertension PLAN: His blood pressure be monitored and he can continue medical adjustment as necessary. This may be increasing his amlodipine therapy to 10 mg p.o. daily. (7) Bursitis of left elbow: PLAN: Procedures. However based upon what appears to be his stable clinical statusHe is continuing evaluation by internal medicine and orthopedic surgery. At the present time he is receiving IV antibiotic therapy. If his issue does not improve he may need surgical I&D. In anticipation for that his antiplatelet therapy and anticoagulant therapy have been placed on hold. He should continue other medications as he is able. He should have close monitoring of his cardiac rate, rhythm, and blood pressure during and following his surgical procedure. An attempt should be made to avoid significant fluctuations in his vital signs as well as his volume status. Based upon his cardiovascular history he would be at increased risk for adverse cardiovascular events from noncardiac with no acute cardiovascular findings and with close monitoring and continue medical management hopefully these risk can be kept a minimum. Addt'l Comments The above was discussed and reviewed with the patient. This note was generated using a voice recognition system and there may be incorrect words, spelling or punctuation that were not noted when reviewing the office note prior to saving.
[2020-10-30] MEDS: 0.9% Saline Lock 10 ML Syringe IV (19:07)
[2020-10-30] MEDS: Atorvastatin Calcium 80 MG Tablet PO (21:49)
[2020-10-31] VITALS (7 sets, daily range): BP systolic 135–174; BP diastolic 73–82; PULSE 55–61; RESP 16–18; TEMP 36.5–37.2; O2SAT 95–100
[2020-10-31] MEDS: Cefazolin 2 GM in 0.9% Normal Saline 100 ML IV ×2 (05:28→13:25)
[2020-10-31 05:38] LABS: Absolute Lymphocyte Count 1.29 X10^3/uL (0.83-4.51); Basophil# 0.05 X10^3/uL; Basophil% 0.5 % (0-1); Eosinophil# 0.16 X10^3/uL; Eosinophils% 1.6 % (0-5); Hematocrit 35.1 % (40-54); Hemoglobin 11.4 g/dL (13.0-16.5); Lymphocyte # 1.29 X10^3/ul (0.83-4.51); Lymphocyte % 12.7 % (19-41); Mean Corp Hgb Conc 32.5 g/dL (32-36); Mean Corpuscular Hgb 29.8 pg (27.0-32.0); Mean Corpuscular Volume 91.9 fL (80-94); Mean Platelet Vol. 9.3 fl (6.2-12.0); Monocyte# 0.64 X10^3/uL; Monocyte% 6.3 % (0-10); NRBC Flagged by Analyzer 0 % (0-5); Neutrophil % 78.6 % (47-70); Platelet Count 284 K/mm3 (150-450); RBC Distribution Width CV 13.3 % (11.6-14.6); RBC Distribution Width SD 44.9 fl (35.1-43.9); Red Blood Count 3.82 M/mm3 (4.6-6.2); White Blood Count 10.2 K/mm3 (4.4-11.0)
[2020-10-31 06:03] LABS: ALB/GLOB Ratio 0.8 RATIO (0.9-2.4); AST(SGOT) 16 U/L (15-37); Alanine Aminotransfer ALT/SGPT 30 U/L (16-61); Albumin, Serum 2.8 g/dL (3.2-5.0); Alkaline Phosphatase 83 U/L (45-117); Anion Gap 5 (5-15); BUN 14 mg/dL (7-18); BUN/Creat Ratio 14.1 RATIO (10-20); Calcium,Total 8.5 mg/dL (8.5-10.1); Chloride 110 mmol/L (98-107); Creatinine, Serum 0.99 mg/dL (0.70-1.30); EST Glomerular Filtration Rate 81 mL/min (>60); Est Glom Filt Rate - Afr Amer 98 mL/min (>60); Estimated Creatinine Clearance 86.49 ml/min; Globulin 3.7 g/dL (2.2-4.2); Glucose 112 mg/dL (74-106); Potassium 3.9 mmol/L (3.5-5.1); Protein, Total 6.5 g/dL (6.4-8.2); Sodium Level 142 mmol/L (136-145)
[2020-10-31] MEDS: Allopurinol 100 MG Tablet PO (07:59)
[2020-10-31] MEDS: Furosemide 40 MG Tablet PO (10:50)
[2020-10-31] MEDS: Minoxidil 2.5 MG Tablet 5 MG PO ×2 (10:50→21:37)
[2020-10-31] MEDS: Amiodarone 200 MG Tablet PO (10:50)
[2020-10-31] MEDS: Ezetimibe 10 MG Tablet PO (10:51)
[2020-10-31] MEDS: Metoprolol Tartrate 50 MG Tablet PO ×2 (10:51→21:36)
[2020-10-31] MEDS: amLODIPine 10 MG Tablet PO (10:51)
--- NOTE | 2020-10-31 12:57 | PN.HOSP_ITS ---
Subjective Subjective Patient was seen and examined. He is frustrated that he is not getting surgery to the left elbow. His left upper extremity swelling is improved. No fevers or chills. Objective Data Objective Data Vital Signs: Vital Signs Temp Pulse Resp BP Pulse Ox 97.7 F L 60 18 147/75 H 97 10/31/20 08:00 10/31/20 10:51 10/31/20 08:00 10/31/20 08:00 10/31/20 08:00 Oxygen Delivery Method Room Air Weight: 132.1 kg Body Mass Index (BMI) 36.8 Intake & Output: Intake and Output for Last 24 Hours 10/29/20 10/30/20 10/31/20 23:59 23:59 23:59 Intake Total 1018.75 / 1018.75 1223.95 / 1223.95 614 / 614 Balance 1018.75 / 1018.75 1223.95 / 1223.95 614 / 614 Lab / Micro Data Result Diagrams: 10/31/20 05:26 10/31/20 05:26 Labs: Laboratory Results - last 24 hr 10/31/20 10/31/20 05:26 05:26 WBC 10.2 RBC 3.82 L Hgb 11.4 L Hct 35.1 L MCV 91.9 MCH 29.8 MCHC 32.5 RDW Std Deviation 44.9 H RDW Coeff of Santhosh 13.3 Plt Count 284 MPV 9.3 Immature Gran % (Auto) 0.300 Neut % (Auto) 78.6 H Lymph % (Auto) 12.7 L [place] % (Auto) 6.3 Eos % (Auto) 1.6 Baso % (Auto) 0.5 Absolute Neuts (auto) 8.0 H Absolute Lymphs (auto) 1.29 Nucleated RBC % 0 Sodium 142 Potassium 3.9 Chloride 110 H Carbon Dioxide 27.0 Anion Gap 5 BUN 14 Creatinine 0.99 Estim Creat Clear Calc 86.49 Est GFR (MDRD) Af Amer 98 Est GFR (MDRD) Non-Af 81 BUN/Creatinine Ratio 14.1 Glucose 112 H Calcium 8.5 Total Bilirubin 1.10 H AST 16 ALT 30 Alkaline Phosphatase 83 Total Protein 6.5 Albumin 2.8 L Globulin 3.7 Albumin/Globulin Ratio 0.8 L Micro: Microbiology 10/27/20 18:00 Fluid - Bursa Gram Stain - Final 10/27/20 18:00 Fluid - Bursa Body Fluid Culture - Final Staphylococcus aureus 10/27/20 18:00 Fluid - Bursa Anaerobic Culture - Final No anaerobic bacteria isolated. 10/27/20 20:44 Blood Culture (Wb) - Left Hand Blood Culture - Preliminary No growth in 48 hours. 10/27/20 20:37 Blood Culture (Wb) - Anticubital Right Blood Culture - Preliminary No growth in 48 hours. Physical Exam Narrative General: Alert, Oriented x3, Cooperative, No apparent distress HEENT: Atraumatic, PERRLA, EOMI, Normocephalic Oral: Moist Mucosa Neck: Supple Lungs: Normal air movement, Diminished Cardiovascular: Regular rate, Regular Rhythm, Normal S1, Normal S2, No murmurs Abdomen: Bowel Sounds Present, Soft, Non Tender, Non-Distended, No Hepato- splenomegaly Extremities: LUE is swollen more than RUE, tender, dressing over the left elbow, bogginess of left elbow improving Skin: No rashes Neurological: Cranial nerves II-XII grossly intact, Neuro grossly intact Psych/Mental Status: Normal Affect, Appropriate Assessment & Plan Assessment/Plan (1) Septic bursitis: (2) CAD (coronary artery disease): QUALIFIERS: Coronary Disease-Associated Artery/Lesion type: [place] artery [place] vs. transplanted heart: [place] heart Associated angina: without angina Qualified Code(s): I25.10 - Atherosclerotic heart disease of [place] coronary artery without angina pectoris (3) Atrial fibrillation: QUALIFIERS: Atrial fibrillation type: paroxysmal Qualified Code(s): I48.0 - Paroxysmal atrial fibrillation (4) HTN (hypertension): QUALIFIERS: Hypertension type: essential hypertension Qualified Code(s): I10 - Essential (primary) hypertension (5) Hyperlipidemia: QUALIFIERS: Hyperlipidemia type: unspecified Qualified Code(s): E78.5 - Hyperlipidemia, unspecified (6) Rheumatoid arthritis: QUALIFIERS: Rheumatoid arthritis location: unspecified site Rheumatoid factor presence: unspecified presence Qualified Code(s): M06.9 - Rheumatoid arthritis, unspecified PLAN: 1. Acute MSSA septic bursitis of the left elbow, slowly improving Doppler ultrasound of the left upper extremity is negative for acute DVT Cultures from olecranon bursa aspiration growing staph aureus Continue on cefazolin ID and orthopedics following Continue off Eliquis and Plavix 2. Rest of chronic medical condition including CAD status post stents, paroxysmal atrial fibrillation, hypertension, rheumatoid arthritis all complicates shelter medications reviewed and continued Charges/Coding Visit Charges Inpatient E&M: 32774 Subs Hosp L2
--- NOTE | 2020-10-31 13:06 | PN.ORTHO_ITS ---
Subjective Subjective Patient is clinically improving. He is afebrile and WBC count is WNL. He dismissed med from his room due to the fact that I did not recommend surgery on his elbow. Objective Data Objective Data Vital Signs: Vital Signs Temp Pulse Resp BP Pulse Ox 97.7 F L 60 18 147/75 H 97 10/31/20 08:00 10/31/20 10:51 10/31/20 08:00 10/31/20 08:00 10/31/20 08:00 Oxygen Delivery Method Room Air Weight: 291 lb 3.69 oz Body Mass Index (BMI) 36.8 Intake & Output: Intake and Output for Last 24 Hours 10/29/20 10/30/20 10/31/20 23:59 23:59 23:59 Intake Total 1018.75 / 1018.75 1223.95 / 1223.95 614 / 614 Balance 1018.75 / 1018.75 1223.95 / 1223.95 614 / 614 Lab / Micro Data Result Diagrams: 10/31/20 05:26 10/31/20 05:26 Labs: Laboratory Results - last 24 hr 10/31/20 10/31/20 05:26 05:26 WBC 10.2 RBC 3.82 L Hgb 11.4 L Hct 35.1 L MCV 91.9 MCH 29.8 MCHC 32.5 RDW Std Deviation 44.9 H RDW Coeff of Santhosh 13.3 Plt Count 284 MPV 9.3 Immature Gran % (Auto) 0.300 Neut % (Auto) 78.6 H Lymph % (Auto) 12.7 L [place] % (Auto) 6.3 Eos % (Auto) 1.6 Baso % (Auto) 0.5 Absolute Neuts (auto) 8.0 H Absolute Lymphs (auto) 1.29 Nucleated RBC % 0 Sodium 142 Potassium 3.9 Chloride 110 H Carbon Dioxide 27.0 Anion Gap 5 BUN 14 Creatinine 0.99 Estim Creat Clear Calc 86.49 Est GFR (MDRD) Af Amer 98 Est GFR (MDRD) Non-Af 81 BUN/Creatinine Ratio 14.1 Glucose 112 H Calcium 8.5 Total Bilirubin 1.10 H AST 16 ALT 30 Alkaline Phosphatase 83 Total Protein 6.5 Albumin 2.8 L Globulin 3.7 Albumin/Globulin Ratio 0.8 L Micro: Microbiology 10/27/20 18:00 Fluid - Bursa Gram Stain - Final 10/27/20 18:00 Fluid - Bursa Body Fluid Culture - Final Staphylococcus aureus 10/27/20 18:00 Fluid - Bursa Anaerobic Culture - Final No anaerobic bacteria isolated. 10/27/20 20:44 Blood Culture (Wb) - Left Hand Blood Culture - Preliminary No growth in 48 hours. 10/27/20 20:37 Blood Culture (Wb) - Anticubital Right Blood Culture - Preliminary No growth in 48 hours. Physical Exam Const alert, oriented x3 and no apparent distress Constitutional Narrative: Upset due to above. Extremity Left Upper Extremity: elbow joint inspection (Left olecranon busra is moderately swollen. There is no erythema or drainage. The area is mildly tender to palpation.) and ROM (Full ROM) Assessment & Plan Assessment/Plan (1) Bursitis of left elbow: PLAN: I would recommend continued medical treatment with discharge on P/O. antibiotics. He should follow up in the office next week with Dr. Figueroa or the orthopedic surgeon of his choice.
--- NOTE | 2020-10-31 14:11 | PCM.DC ---
Discharge Instructions Diet Discharge Diet: Low fat / Low cholesterol and 2000 mg Sodium Diet Activity Discharge Activity: Return to Normal Activity Follow Up Care Test Results: Test results from this visit will be discussed in further detail at your follow-up appointment, if applicable. Discharge Plan Admission Admit Date/Time: 10/27/20 20:26 Primary Reason for Your Visit: Acute left olecranon bursitis Attending Provider: Sydney Smith Primary Care Provider: Vinayak Ontiveros Consulting Providers: Caleb Greer ; Jeramie Knox ; Dwayne Weston Instructions Patient Instructions: ED Chest Pain, Noncardiac Additional Instructions / Restrictions: You can support your left elbow in a sling. Continue to keep it elevated to assist with the swelling. Complete your antibiotics as prescribed Discharge Orders/Prescriptions Prescriptions: New atorvastatin 80 mg Tablet 80 mg PO QHS Qty: 30 RF: 0 allopurinol 100 mg Tablet 100 mg PO DAILYCM 30 Days Qty: 30 RF: 0 ezetimibe 10 mg Tablet 10 mg PO DAILY Qty: 30 RF: 0 Continued nitroglycerin 0.4 mg tablet, sublingual 0.4 mg SUBLINGUAL Q5-15M PRN (Reason: cp) RF: 0 amlodipine [Norvasc] 5 mg tablet 5 mg PO DAILY RF: 0 furosemide 40 mg tablet 40 mg PO DAILY RF: 0 minoxidil 10 mg tablet 5 mg PO BID RF: 0 clopidogrel 75 MG tablet 75 mg PO DAILY RF: 0 apixaban 5 MG tablet 5 mg PO BID RF: 0 amiodarone 200 MG tablet 200 mg PO DAILY RF: 0 metoprolol tartrate 50 MG tablet 50 mg PO BID RF: 0 lisinopril 20 mg Tablet 20 mg PO DAILY RF: 0 spironolactone [Aldactone] 25 mg Tablet 25 mg PO DAILY RF: 0 Referrals / Follow Up: Vinayak Ontiveros MD [Primary Care Provider] - Disposition Disposition (needs filled in before D/C Order can be placed): Home, self care
--- NOTE | 2020-10-31 14:55 | DS.PCM_ITS ---
Providers Date of Admission: 10/27/20 Date of Discharge: 10/31/20 Primary Care Physician: Dr. Vinayak Ontiveros MD Consultations 10/27/20 21:19 Consult: Orthopedics Routine Consulting Provider: Caleb Greer Reason for Consult: left elbow bursitis EMERGENT Consult: No Notified: Yes Date Notified: 10/27/20 Time Notified: 20:23 Method of Notification: Verbal 10/29/20 07:31 Consult: Cardiology Routine Consulting Provider: Jeramie Knox Reason for Consult: Pre-op clearance EMERGENT Consult: No Notified: Yes Date Notified: 10/29/20 Time Notified: 07:31 Method of Notification: Verbal Method of Consult:: In-Person 10/29/20 12:46 Consult: Infectious Disease Routine Consulting Provider: Dwayne Weston Reason for Consult: Septic bursitis EMERGENT Consult: No Notified: Yes Date Notified: 10/29/20 Time Notified: 13:09 Method of Notification: Answering Service Reason For Visit: LEFT ELBOW SEPTIC BURSITIS Diagnosis Discharge Diagnosis (1) Bursitis of left elbow: Status: Acute Code(s): M70.32 - Other bursitis of elbow, left elbow Qualifiers: Elbow bursitis location: olecranon bursitis Qualified Code(s): M70.22 - Olecranon bursitis, left elbow (2) NSVT (nonsustained ventricular tachycardia): Status: Acute Code(s): I47.2 - Ventricular tachycardia (3) COPD (chronic obstructive pulmonary disease): Status: Chronic Code(s): J44.9 - Chronic obstructive pulmonary disease, unspecified Qualifiers: COPD type: unspecified COPD Qualified Code(s): J44.9 - Chronic obstructive pulmonary disease, unspecified (4) CAD (coronary artery disease): Status: Chronic Code(s): I25.10 - Atherosclerotic heart disease of [place] coronary artery without angina pectoris Qualifiers: Coronary Disease-Associated Artery/Lesion type: [place] artery [place] vs. transplanted heart: [place] heart Associated angina: without angina Qualified Code(s): I25.10 - Atherosclerotic heart disease of [place] coronary artery without angina pectoris (5) Atrial fibrillation: Status: Chronic Code(s): I48.91 - Unspecified atrial fibrillation Qualifiers: Atrial fibrillation type: paroxysmal Qualified Code(s): I48.0 - Paroxysmal atrial fibrillation (6) Rheumatoid arthritis: Status: Chronic Code(s): M06.9 - Rheumatoid arthritis, unspecified Qualifiers: Rheumatoid arthritis location: unspecified site Rheumatoid factor presence: unspecified presence Qualified Code(s): M06.9 - Rheumatoid arthritis, unspecified (7) Obstructive sleep apnea syndrome: Status: Chronic Code(s): G47.33 - Obstructive sleep apnea (adult) (pediatric) (8) HTN (hypertension): Status: Chronic Code(s): I10 - Essential (primary) hypertension Qualifiers: Hypertension type: essential hypertension Qualified Code(s): I10 - Essential (primary) hypertension (9) Hyperlipidemia: Status: Chronic Code(s): E78.5 - Hyperlipidemia, unspecified Qualifiers: Hyperlipidemia type: unspecified Qualified Code(s): E78.5 - Hyperlipidemia, unspecified (10) Esophageal reflux: Status: Chronic Code(s): K21.9 - Gastro-esophageal reflux disease without esophagitis Qualifiers: Esophagitis presence: without esophagitis Qualified Code(s): K21.9 - Gastro-esophageal reflux disease without esophagitis (11) Coronary atherosclerosis of [place] coronary vessel: Status: Chronic Code(s): I25.10 - Atherosclerotic heart disease of [place] coronary artery without angina pectoris Qualifiers: [place] vs. transplanted heart: [place] heart Associated angina: without angina Qualified Code(s): I25.10 - Atherosclerotic heart disease of [place] coronary artery without angina pectoris Medications at Discharge Home Medications amlodipine 5 mg tablet 5 mg PO DAILY 10/05/19 furosemide 40 mg tablet 40 mg PO DAILY tab 10/05/19 minoxidil 10 mg tablet 5 mg PO BID tab 10/05/19 nitroglycerin 0.4 mg sublingual tablet 0.4 mg SUBLINGUAL Q5-15M PRN tab 10/05/19 amiodarone 200 mg PO DAILY 04/01/20 metoprolol tartrate 50 mg PO BID 04/01/20 lisinopril 20 mg PO DAILY 10/27/20 spironolactone [Aldactone] 25 mg PO DAILY 10/27/20 allopurinol 100 mg PO DAILYCM 30 Days #30 tab 10/31/20 atorvastatin 80 mg PO QHS #30 tab 10/31/20 ezetimibe 10 mg PO DAILY #30 tab 10/31/20 Hospital Course Operations None Procedures None Summary of Care Provided Minutes Spent on Discharge: 40 Hospital Course: 65-year-old male who presented to the emergency room with left elbow pain and swelling. He denied any trauma to the left elbow. Denied any fever or chills. He recently had COVID-19 infection. In the emergency room, his WBC count of 16.1, creatinine was 1.73, uric acid was 8.1. Patient's left elbow area was aspirated. There were no crystals in the fluid. Orthopedic surgery was consulted from the ED. Patient was admitted to [facility] floor on vancomycin and meropenem. His Nayana robert and Plavix were stopped. Patient was started on allopurinol. His aspirate cultures grew MSSA. He was switched to cefazolin. Patient's left upper extremity continued to improve. There were no acute events overnight. Orthopedic surgery was consulted on this patient. Changes were made to his blood pressure medications. He had acute kidney injury that improved with hydration and lisinopril being held. Orthopedic surgery did not recommend any acute surgical intervention in this admission. Recommended that he follow-up in a week with Dr. Figueroa. He will be kept off his anticoagulants and antiplatelet. Patient was not happy about the decision not to do surgery. He stated that he had history of bursitis that eventually required removal of the bursa sac. He was insistent that he wanted surgery on his left elbow. He filed an appeal with Medicare, appealing his discharge. Physical Exam Narrative General: Alert, Oriented x3, Cooperative, No apparent distress HEENT: Atraumatic, PERRLA, EOMI, Normocephalic Oral: Moist Mucosa Neck: Supple Lungs: Normal air movement, Diminished Cardiovascular: Regular rate, Regular Rhythm, Normal S1, Normal S2, No murmurs Abdomen: Bowel Sounds Present, Soft, Non Tender, Non-Distended, No Hepato- splenomegaly Extremities: LUE is swollen more than RUE, tender, dressing over the left elbow, bogginess of left elbow improving Skin: No rashes Neurological: Cranial nerves II-XII grossly intact, Neuro grossly intact Psych/Mental Status: Normal Affect, Appropriate Weight / BMI Weight Weight: 132.1 kg Body Mass Index (BMI) 36.8 ABG / Lab / Microbiology Data Result Diagrams: 10/31/20 05:26 10/31/20 05:26 Laboratory: Laboratory Results - last 24 hr 10/31/20 10/31/20 05:26 05:26 WBC 10.2 RBC 3.82 L Hgb 11.4 L Hct 35.1 L MCV 91.9 MCH 29.8 MCHC 32.5 RDW Std Deviation 44.9 H RDW Coeff of Santhosh 13.3 Plt Count 284 MPV 9.3 Immature Gran % (Auto) 0.300 Neut % (Auto) 78.6 H Lymph % (Auto) 12.7 L [place] % (Auto) 6.3 Eos % (Auto) 1.6 Baso % (Auto) 0.5 Absolute Neuts (auto) 8.0 H Absolute Lymphs (auto) 1.29 Nucleated RBC % 0 Sodium 142 Potassium 3.9 Chloride 110 H Carbon Dioxide 27.0 Anion Gap 5 BUN 14 Creatinine 0.99 Estim Creat Clear Calc 86.49 Est GFR (MDRD) Af Amer 98 Est GFR (MDRD) Non-Af 81 BUN/Creatinine Ratio 14.1 Glucose 112 H Calcium 8.5 Total Bilirubin 1.10 H AST 16 ALT 30 Alkaline Phosphatase 83 Total Protein 6.5 Albumin 2.8 L Globulin 3.7 Albumin/Globulin Ratio 0.8 L Microbiology: Microbiology 10/27/20 18:00 Gram Stain - Final Fluid - Bursa Body Fluid Culture - Final Staphylococcus aureus Anaerobic Culture - Final No anaerobic bacteria isolated. Microbiology 10/27/20 18:00 Fluid - Bursa Gram Stain - Final 10/27/20 18:00 Fluid - Bursa Body Fluid Culture - Final Staphylococcus aureus 10/27/20 18:00 Fluid - Bursa Anaerobic Culture - Final No anaerobic bacteria isolated. 10/27/20 20:44 Blood Culture (Wb) - Left Hand Blood Culture - Preliminary No growth in 48 hours. 10/27/20 20:37 Blood Culture (Wb) - Anticubital Right Blood Culture - Preliminary No growth in 48 hours. D/C Instructions Discharge Diet: Low fat / Low cholesterol and 2000 mg Sodium Diet Meaningful Use Info Meaningful Use Diagnoses (Choose all that apply): None applicable Discharge Plan Admission Admit Date/Time: 10/27/20 20:26 Primary Reason for Your Visit: Acute left olecranon bursitis Attending Provider: Sydney Smith Primary Care Provider: Vinayak Ontiveros Consulting Providers: Caleb Greer ; Jeramie Knox ; Dwayne Weston Instructions Patient Instructions: ED Chest Pain, Noncardiac Additional Instructions / Restrictions: You can support your left elbow in a sling. Continue to keep it elevated to assist with the swelling. Complete your antibiotics as prescribed Discharge Orders/Prescriptions Prescriptions: New atorvastatin 80 mg Tablet 80 mg PO QHS Qty: 30 RF: 0 allopurinol 100 mg Tablet 100 mg PO DAILYCM 30 Days Qty: 30 RF: 0 ezetimibe 10 mg Tablet 10 mg PO DAILY Qty: 30 RF: 0 Continued nitroglycerin 0.4 mg tablet, sublingual 0.4 mg SUBLINGUAL Q5-15M PRN (Reason: cp) RF: 0 amlodipine [Norvasc] 5 mg tablet 5 mg PO DAILY RF: 0 furosemide 40 mg tablet 40 mg PO DAILY RF: 0 minoxidil 10 mg tablet 5 mg PO BID RF: 0 amiodarone 200 MG tablet 200 mg PO DAILY RF: 0 metoprolol tartrate 50 MG tablet 50 mg PO BID RF: 0 lisinopril 20 mg Tablet 20 mg PO DAILY RF: 0 spironolactone [Aldactone] 25 mg Tablet 25 mg PO DAILY RF: 0 Discontinued clopidogrel 75 MG tablet 75 mg PO DAILY RF: 0 apixaban 5 MG tablet 5 mg PO BID RF: 0 Referrals / Follow Up: Vinayak Ontiveros MD [Primary Care Provider] - Disposition Disposition (needs filled in before D/C Order can be placed): Home, self care Charges/Coding Visit Charges Inpatient E&M: 69578 Disch Hosp
--- NOTE | 2020-10-31 17:13 | CASEMGMT ---
Notice was received from RADHA Stanley regarding pt's requested appeal of his discharge. The Detailed Notice of Discharge was completed, verbally explained to the patient, and signed by the patient. A copy was provided to the patient and a copy placed in his medical record. Pt's medical record to be submitted to [facility] as requested. Will follow for determination by [facility]. Rika Warner RN CM
[2020-10-31] MEDS: Doxycycline 100 MG CAPSULE PO (17:29)
--- NOTE | 2020-10-31 17:57 | CON.PCM_ITS ---
Assessment & Plan Assessment/Plan (1) Bursitis of left elbow: QUALIFIERS: Elbow bursitis location: olecranon bursitis Qualified Code(s): M70.22 - Olecranon bursitis, left elbow PLAN: Patient has septic bursitis of the left elbow. Right down to resolving. Infectious disease has seen the patient at this time I recommended discontinuing IV antibiotics and placing the patient on his oral antibiotic regimen. If he continues to do well tomorrow he should be discharged home and follow-up in the office next week. Feel free to contact me with any further questions or concerns. I have talked to the patient at length of the advantages and disadvantages of surgery as well as the risks that are involved in surgery. At this time nonsurgical intervention was recommended as he is responding well to antibiotic treatment. We both are in agreement that despite antibiotic treatment infections can recur. If this is the case and he may need to have surgery in order for definitive treatment to be successful. [facility] Office: HPI Consult Data Date of Consult: 10/31/20 HPI Narrative Reason for Consultation: Left elbow pain HPI Narrative: SHANNON OLSON, is a 65 M who presents with septic olecranon bursitis. He presented earlier this week with pain and difficulty with elbow range of motion. Patient currently has minimal pain. He still has some erythema and some swelling around the olecranon bursa. He has significant history of cardiac disease. Patient has had previous olecranon bursa resected after recurrent bursitis. His chart is not readily available for review however he does report he did have some septic bursitis at that point. He had multiple aspirations of the bursitis. Concerning his elbow he has been on IV antibiotics throughout the week his range of motion is improved and his pain is decreased. The redness in his arm is also decreased and is now isolated to olecranon swelling. No active drainage. Fevers and white count have subsided. [facility] Medical History Atrial fibrillation CAD (coronary artery disease) Cholelithiasis with chronic cholecystitis COPD (chronic obstructive pulmonary disease) Coronary atherosclerosis of [place] coronary vessel Esophageal reflux history of ischemic stroke HTN (hypertension) Hyperlipidemia NSVT (nonsustained ventricular tachycardia) Obstructive sleep apnea syndrome Rheumatoid arthritis Screening for malignant neoplasm of intestine severe degenerative arthritis of right hip Home Medications amlodipine 5 mg tablet 5 mg PO DAILY 10/05/19 [History Last Taken 10/27/20] furosemide 40 mg tablet 40 mg PO DAILY tab 10/05/19 [History Last Taken 10/27/20] minoxidil 10 mg tablet 5 mg PO BID tab 10/05/19 [History Last Taken 10/27/20] nitroglycerin 0.4 mg sublingual tablet 0.4 mg SUBLINGUAL Q5-15M PRN tab 10/05/19 [History Last Taken Unknown] amiodarone 200 mg PO DAILY 04/01/20 [History Last Taken 10/27/20] metoprolol tartrate 50 mg PO BID 04/01/20 [History Last Taken 10/27/20] lisinopril 20 mg PO DAILY 10/27/20 [History Last Taken 10/27/20] spironolactone [Aldactone] 25 mg PO DAILY 10/27/20 [History Last Taken 10/27/20] allopurinol 100 mg PO DAILYCM 30 Days #30 tab 10/31/20 [Rx Last Taken Unknown] atorvastatin 80 mg PO QHS #30 tab 10/31/20 [Rx Last Taken Unknown] ezetimibe 10 mg PO DAILY #30 tab 10/31/20 [Rx Last Taken Unknown] Allergy/AdvReac Type Severity Reaction Status Date / Time Penicillins Allergy Hives Verified 10/27/20 17:50 Family History Sister Cancer ovarian Brother Diabetes Surgical History (Updated 10/29/20 @ 13:[address] Jeramie Knox MD) History of cardiac catheterization History of colonoscopy (~2014) History of coronary angioplasty History of esophagogastroduodenoscopy (EGD) (~2014) History of heart artery stent History of inguinal hernia repair History of knee joint replacement History of left shoulder replacement History of total left hip arthroplasty History of total right hip arthroplasty Hx of cholecystectomy S/P PTCA (percutaneous transluminal coronary angioplasty) Social History (Updated 01/23/20 @ 08:[address] Dwayne Bess MD) Smoking Status: Never smoker ROS ROS Narrative 14 point review of systems outside of what is mentioned in the HPI is negative. Physical Exam Narrative Alert and oriented x3, no acute distress. Extremity Extremity Narrative: Left upper extremity: Patient does have swelling over the olecranon and fluctuance over this area. Mild increased warmth to touch. No pain with elbow range of motion. Full range of motion pronation supination flexion extension of the elbow. Neurovascular intact distally. Mild surrounding erythema. Lab / Micro Data Result Diagrams: 10/31/20 05:26 10/31/20 05:26 Labs: Laboratory Results - last 24 hr 10/31/20 10/31/20 05:26 05:26 WBC 10.2 RBC 3.82 L Hgb 11.4 L Hct 35.1 L MCV 91.9 MCH 29.8 MCHC 32.5 RDW Std Deviation 44.9 H RDW Coeff of Santhosh 13.3 Plt Count 284 MPV 9.3 Immature Gran % (Auto) 0.300 Neut % (Auto) 78.6 H Lymph % (Auto) 12.7 L [place] % (Auto) 6.3 Eos % (Auto) 1.6 Baso % (Auto) 0.5 Absolute Neuts (auto) 8.0 H Absolute Lymphs (auto) 1.29 Nucleated RBC % 0 Sodium 142 Potassium 3.9 Chloride 110 H Carbon Dioxide 27.0 Anion Gap 5 BUN 14 Creatinine 0.99 Estim Creat Clear Calc 86.49 Est GFR (MDRD) Af Amer 98 Est GFR (MDRD) Non-Af 81 BUN/Creatinine Ratio 14.1 Glucose 112 H Calcium 8.5 Total Bilirubin 1.10 H AST 16 ALT 30 Alkaline Phosphatase 83 Total Protein 6.5 Albumin 2.8 L Globulin 3.7 Albumin/Globulin Ratio 0.8 L Micro: Microbiology 10/27/20 18:00 Gram Stain - Final Fluid - Bursa Body Fluid Culture - Final Staphylococcus aureus Anaerobic Culture - Final No anaerobic bacteria isolated. X-rays of the left elbow were reviewed showing no acute fractures, no bony lesions. Mild arthrosis of the joint. Well aligned joint. Mild soft tissue swelling over the olecranon.
[2020-10-31] MEDS: Atorvastatin Calcium 80 MG Tablet PO (21:36)
[2020-11-01] MEDS: Doxycycline 100 MG CAPSULE PO ×2 (00:12→10:23)
[2020-11-01 02:50] VITALS: BP 147/78; PULSE 53; RESP 18; TEMP 36.6; O2SAT 97
[2020-11-01] MEDS: Allopurinol 100 MG Tablet PO (08:12)
[2020-11-01 08:13] VITALS: BP 124/71; PULSE 57; RESP 18; TEMP 36.6; O2SAT 97
[2020-11-01 08:15] VITALS: PULSE 60
[2020-11-01 10:23] VITALS: PULSE 60
[2020-11-01] MEDS: Amiodarone 200 MG Tablet PO (10:23)
[2020-11-01] MEDS: amLODIPine 10 MG Tablet PO (10:23)
[2020-11-01] MEDS: Ezetimibe 10 MG Tablet PO (10:23)
[2020-11-01] MEDS: Metoprolol Tartrate 50 MG Tablet PO (10:23)
[2020-11-01] MEDS: Furosemide 40 MG Tablet PO (10:23)
[2020-11-01] MEDS: Minoxidil 2.5 MG Tablet 5 MG PO (10:23)
--- NOTE | 2020-11-01 14:04 | PCM.PN.ID ---
Physical Exam Narrative Feeling a little better, no fever, arm still sore and warm, ROM better. Const alert and no apparent distress General Appearance: cooperative Resp clear to auscultation bilaterally Cardio regular rate and regular rhythm Extremity Extremity Narrative: L elbow swelling, no drainage, mild warmth Skin no rashes or lesions noted ID ID: Route of nutrition/ use of supplements: [] Nutritional Intake: [] IV Site: [] Morgan Catheter: [] Assessment & Plan Assessment/Plan (1) Bursitis of left elbow: QUALIFIERS: Elbow bursitis location: olecranon bursitis Qualified Code(s): M70.22 - Olecranon bursitis, left elbow PLAN: MSSA L elbow septic bursitis - narrowed abx to cefazolin, reports rash with PCN. Recommended he get covid shot, has been having symptoms of long covid since 03/2020 infection. He will think about it. If no plan for surgery, ok for home with 3 weeks po doxycycline 100mg bid with close ortho followup Will follow
[2020-11-01 14:11] VITALS: BP 130/64; PULSE 57; RESP 18; TEMP 36.7; O2SAT 96
--- NOTE | 2020-11-01 17:20 | CASEMGMT ---
Voicemail message received from Claudette from [employer] with discharge appeal determination. The physician reviewer agreed with the termination of services with patient liabilty to begin on 11/02/20. This RN CM visited pt at bedside and explained determination. Pt states he also received a phone call from [employer]. Pt agreeable with discharge on this date and denied any further questions or concerns. Rika Warner RN CM
[2020-11-01 17:56] VITALS: BP 161/80; PULSE 64; RESP 18; TEMP 36.9; O2SAT 97
--- NOTE | 2020-11-04 14:56 | CASEMGMT ---
JESUS LANDERS Discharge Follow-up Phone Call: RANJANAAngela: Christopher Strata: 3 Call Date: 11/04/20 Discharge Date: 11/01/20 Time of Call:1450 Duration: 5 min Admitting Diagnosis: left elbow septic Bursitis JESUS LANDERS completed follow-up phone call after recent hospitalization. Patient states he is doing ok, had follow-up with Dr. Figueroa today. Patient states he was able to fill prescriptions without any issues. Patient had no questions regarding discharge instructions. Patient aware to schedule appt with PCP. Patient had no further questions or concerns at this time.
== END 2020-11-01 18:33 | disposition home or self-care (01) | DRG 558 ==
LOC: ED 20:15 → MS3 20:55
PROVIDERS: Admitting Provider Internal Medicine; Emergency Provider Emergency Medicine; PCP Family Medicine; Visit Provider Internal Medicine
DX: M71.122 Other infective bursitis, left elbow (principal); I47.2 Ventricular tachycardia; N17.9 Acute kidney failure, unspecified; B95.61 Methicillin susceptible Staphylococcus aureus infection as the cause of diseases classified elsewhere; Z79.02 Long term (current) use of antithrombotics/antiplatelets; I25.10 Atherosclerotic heart disease of native coronary artery without angina pectoris; I48.0 Paroxysmal atrial fibrillation; I10 Essential (primary) hypertension; M06.9 Rheumatoid arthritis, unspecified; E78.5 Hyperlipidemia, unspecified; J44.9 Chronic obstructive pulmonary disease, unspecified; Z95.5 Presence of coronary angioplasty implant and graft; Z79.899 Other long term (current) drug therapy; Z86.16 Personal history of COVID-19
CPT/HCPCS: 36415; 73080; 80048; 80053; 80202; 84550; 85025; 87040; 87070; 87075; 87077; 87186; 87205; 89050; 89060; 93005; 93306; 93971; 99283; J2185; J7040; J7050; Q9957; A4216; C8929; J3490

== ENCOUNTER → 2021-01-01 14:33 | Outpatient (CLI) | payer MEDICARE, OTHER, SELFPAY ==
[2021-01-01 15:39] LABS: Cholesterol 156 mg/dL (200); High Density Lipoprotein 59 mg/dL; Triglycerides 133 mg/dL; Very Low Density Lipoprotein 27 mg/dL (5-40)
== END ==
PROVIDERS: PCP Family Medicine; Visit Provider Internal Medicine Cardiovascular Disease
DX: I25.10 Atherosclerotic heart disease of native coronary artery without angina pectoris (principal); E78.49 Other hyperlipidemia
CPT/HCPCS: 36415; 80061

== ENCOUNTER → 2021-02-19 | Outpatient (CLI) | payer MEDICARE, OTHER, SELFPAY ==
--- NOTE | 2021-02-18 14:30 | CYST_PTH ---
PATIENT: SHANNON OLSON LOC: [facility] U#:[id number] AGE/SX: 65/M ROOM: RE02/19/[address]: Dr. Dwayne Bess MD : 1955 BED: DIS: 02/19/2021 SPEC #: [id number] RECD: 02/19/21 07:40 STATUS: LALIT SRIVASTAVANatalia #: [id number] KAILA: 02/18/21 14:[address]: Dwayne Bess DEPT: SURGICAL PATHOLOGY RECD BY: Narciso Roland ENTERED: 02/19/21 12:14 SP TYPE: Cyst OTHR DR: Dr. Vinayak Ontiveros MD Tissues: CYST Procedures: Surgery Specimen Level III HEADER OPERATION: Excision posterior neck cyst PRE-OP DIAGNOSIS: Posterior neck cyst TISSUE SUBMITTED: Posterior neck cyst MICROSCOPIC DIAGNOSIS Skin and soft tissue of left neck, excision: Epidermal inclusion cyst. AM:ashanti 02/20/2021 MICROSCOPIC DESCRIPTION Slides are reviewed. GROSS DESCRIPTION Received in fixative is one container labeled with the patient's name and designated posterior neck cyst. The specimen consists of an ellipse of light jc excised skin measuring 2 x 0.6 cm. Attached to this is a white cystic structure measuring 1.8 x 1 cm. The specimen is inked, serially sectioned and totally submitted in one cassette. / AM:ashanti 02/19/21 TC:5 CPT: 09495
== END | disposition home or self-care (01) ==
LOC: LABSPEC 08:48
PROVIDERS: PCP Family Medicine; Visit Provider Surgery
DX: L72.0 Epidermal cyst (principal)
CPT/HCPCS: 88304

== ENCOUNTER 2021-07-02 14:26 | Outpatient (CLI) | payer MEDICARE, OTHER, SELFPAY ==
--- NOTE | 2021-07-02 14:30 | CT_ITS ---
STUDY: CT Abdomen And Pelvis W/ Contrast Injection 07/02/2021 3:07 PM REASON FOR EXAM: Male, 65 years old. Abdominal pain Gained 15 lbs in 6 months without significant change in diet. SX/ hernia repair, cholecystectomy Individualized dose optimization techniques were used for this CT. COMPARISON: None. TECHNIQUE: CT Abdomen And Pelvis W/ Contrast Injection IV 100mL [id number] FINDINGS: There are atherosclerotic calcifications of visualized coronary arteries. The visualized portions of the heart are within normal limits. There is a single hypodensity in the right lobe of the of the liver. These are consistent for cysts. No follow up required. There is non-visualization of the gallbladder, which may be secondary to either contraction or a prior cholecystectomy. Normal spleen. Normal pancreas. Normal bilateral adrenal glands. There are hypodensities in the right kidney. These are consistent for cysts. No follow up required. There are hypodensities in the left kidney. These are consistent for cysts. No follow up required. Normal visualized stomach. Normal small intestine. Stool throughout the colon. The appendix is visualized and appears normal. There are calcifications of the abdominal aorta. This is consistent for atherosclerotic disease. There is no abdominal aortic aneurysm. Normal inferior vena cava. Subcentimeter mesenteric lymph nodes. Normal urinary bladder. There are sclerotic densities in the sacrum and iliac bones. These may represent multiple bone islands. Total bilateral hip arthroplasty. Normal abdominal wall. There are diffuse degenerative changes of the visualized lumbar spine. There is bilateral neural foraminal stenosis at L2-3, L3-4, L4-5 and L5-S1. There is a Grade 1 retrolisthesis of L5 on S1 and L4 on L5. Vacuum disc phenomenon. IMPRESSION: (NOT LISTED IN ORDER OF SIGNIFICANCE) There are hypodensities in both kidneys. These are consistent for cysts. No follow up required. Acquired degenerative spinal stenosis. Other findings as above. Electronically Signed: Yann Palmer MD at 15:13 EST , CT/Abdomen/Pelvis WITH Contrast
[2021-07-02 14:46] LABS: CREATININE FINGERSTICK 1.2 mg/dL (0.70-1.30); EGFR FINGERSTICK > 60.0000 mL/min (>60)
== END 2021-07-02 23:59 | disposition home or self-care (01) ==
LOC: CT 14:28
PROVIDERS: PCP Family Medicine; Referring Provider Family Medicine; Visit Provider Family Medicine
DX: R10.9 Unspecified abdominal pain (principal); R63.5 Abnormal weight gain; R06.00 Dyspnea, unspecified
CPT/HCPCS: 74177; Q9967

== ENCOUNTER 2021-08-01 10:55 | Outpatient (CLI) | payer MEDICARE, OTHER, SELFPAY ==
[2021-08-01 12:13] LABS: Hematocrit 41.8 % (40-54); Hemoglobin 13.8 g/dL (13.0-16.5); Mean Corpuscular Hgb 30.7 pg (27.0-32.0); Mean Corpuscular Volume 93.1 fL (80-94); Mean Platelet Vol. 10.2 fl (6.2-12.0); Platelet Count 276 K/mm3 (150-450); RBC Distribution Width CV 13.2 % (11.6-14.6); RBC Distribution Width SD 45.3 fl (35.1-43.9); Red Blood Count 4.49 M/mm3 (4.6-6.2)
[2021-08-01 12:50] LABS: Anion Gap 3 (5-15); BUN 30 mg/dL (7-18); BUN/Creat Ratio 19.4 RATIO (10-20); Calcium,Total 9.3 mg/dL (8.5-10.1); Chloride 111 mmol/L (98-107); Cholesterol 144 mg/dL (200); Creatinine, Serum 1.55 mg/dL (0.70-1.30); EST Glomerular Filtration Rate 48 mL/min (>60); Est Glom Filt Rate - Afr Amer 58 mL/min (>60); Glucose 106 mg/dL (74-106); High Density Lipoprotein 49 mg/dL; Potassium 4.4 mmol/L (3.5-5.1); Sodium Level 143 mmol/L (136-145); Triglycerides 132 mg/dL; Very Low Density Lipoprotein 26 mg/dL (5-40)
--- NOTE | 2021-08-01 14:50 | NEURO ---
NCS and/or EMG Patient Report Ordering Doctor: Terry Figueroa DATE OF SERVICE: 08/01/21 Indication: Two years of bilateral hand numbness, concentrated in digits 1-3. No associated local or radicular neck pain. Evaluate for median neuropathy at the wrist. Findings: Nerve conduction studies were performed in the right and left upper extremities. The right median motor study recording the abductor pollicis brevis showed a reduced amplitude, prolonged distal latency and slowed conduction velocity. The right ulnar motor study recording the abductor digiti minimi showed a normal amplitude, normal distal latency and normal conduction velocity. No conduction block or focal slowing was present across the elbow. Right median-ulnar lumbrical / interosseous motor latencies showed a normal median latency compared to the ulnar. The right median sensory response recording digit two was absent. The right ulnar sensory response recording digit five showed a normal amplitude, latency and conduction velocity. The right radial sensory response recording over the extensor snuff box showed a normal amplitude, latency and conduction velocity. The left median motor study recording the abductor pollicis brevis showed a normal amplitude, prolonged distal latency and slowed conduction velocity. The left ulnar motor study recording the abductor digiti minimi showed a normal amplitude, normal distal latency and normal conduction velocity. No conduction block or focal slowing was present across the elbow. Left median-ulnar lumbrical / interosseous motor latencies showed a normal median latency compared to the ulnar. The left median sensory response recording digit two was absent. The left ulnar sensory response recording digit five showed a normal amplitude, latency and conduction velocity. The left radial sensory response recording over the extensor snuff box showed a normal amplitude, latency and conduction velocity. Needle EMG of the bilateral abductor pollicis brevis muscles was performed. No active denervation was present. On the right, motor units were large amplitude, long duration and mild polyphasic with normal recruitment. On the left, motor unit morphology, activation and recruitment patterns were normal. Impression: This is an abnormal study. There is electrophysiologic evidence of bilateral median neuropathy across the wrists (moderate on the left, severe on the right). These findings are compatible with the clinical diagnosis of carpal tunnel syndrome. David Kingston D.O. Multi Select Codes Neurology Neurology Interp Codes: 86118-25 Musc tst done w/nerv tst ziegler (interp) (Qty:2) and 30944-51 Nrv d test 13/> studies (interp)
== END 2021-08-01 23:59 | disposition home or self-care (01) ==
LOC: PSN 11:00
PROVIDERS: PCP Family Medicine; Referring Provider Specialist; Visit Provider Specialist
DX: G56.03 Carpal tunnel syndrome, bilateral upper limbs (principal); I25.10 Atherosclerotic heart disease of native coronary artery without angina pectoris; I10 Essential (primary) hypertension
CPT/HCPCS: 36415; 80048; 80061; 85027; 95885; 95913

== ENCOUNTER 2021-09-09 22:44 | Emergency (ER) | payer MEDICARE, OTHER, SELFPAY ==
[2021-09-09 22:44] VITALS: BP 166/86; PULSE 66; RESP 18; O2SAT 97
[2021-09-09 22:45] VITALS: BP 161/85; PULSE 68; RESP 16; TEMP 36.7; O2SAT 95; BMI 22.7
[2021-09-09 22:56] VITALS: BP 161/85; PULSE 68; RESP 16; TEMP 36.7; O2SAT 95; BMI 22.7
--- NOTE | 2021-09-09 22:56 | EKG12_ITS ---
Test Reason : DYSRHYTHMIA Blood Pressure : / mmHG Vent. Rate : 060 BPM Atrial Rate : 060 BPM P-R Int : 200 ms QRS Dur : 110 ms QT Int : 466 ms P-R-T Axes : 034 013 014 degrees QTc Int : 466 ms Normal sinus rhythm Inferior infarct , age undetermined Abnormal ECG Confirmed by LULU ALVARADO, CATRACHITO ([id number]), purchasing expeditor GIA LING ([id number]) on 09/11/2021 10:56:27 AM Referred By: BB Confirmed By:CATRACHITO LAWSON MD
--- NOTE | 2021-09-09 22:56 | CT_ITS ---
We are attempting to reach an attending provider to discuss findings. An addendum with communication details will be sent when the communication is complete. CT head without contrast stroke ischemic FINDINGS: No evidence of hemorrhage Pierre-white matter differentiation is maintained Insular strip normal The basal ganglia are intact. No evidence of a thrombus in the distribution of the middle cerebral artery IMPRESSION: Normal CT of the head without contrast stroke Electronically Signed: Colin Kathleen MD at 23:38 EDT , CT/STROKE Brain/Head without Cont
--- NOTE | 2021-09-09 22:57 | CT_ITS ---
We are attempting to reach an attending provider to discuss findings. An addendum with communication details will be sent when the communication is complete. STUDY: CTA HEAD AND NECK WITH CONTRAST REASON FOR EXAM: Male, 65 years old. vertigo RADIATION DOSAGE (If Supplied By Facility): CTDIvol = ( 13.99 ) mGy, DLP = ( 792.42 ) mGycm TECHNIQUE: CT angiography was performed with a multi-detector CT scanner. Data acquisition was obtained from the skull base through the vertex following intravenous administration of IV 100mL Isovue-370. MIP images were reconstructed from the axial data set. Post-processing of the angiographic images was performed, with multiplanar reformation and 3D reconstruction. Individualized dose optimization techniques were used for this CT. COMPARISON: No relevant priors. FINDINGS: Normal bilateral petrous carotid arteries. Normal right cavernous carotid artery with a normal supraclinoid bifurcation. Normal left cavernous carotid artery with a normal supraclinoid bifurcation. Normal right A1 segments of the anterior cerebral artery. Normal left A1 segments of the anterior cerebral artery. Normal intact anterior communicating artery (ACOM). Normal bilateral A2 segments of the anterior cerebral arteries. Normal right M1 and M2 segments of the middle cerebral arteries, with a normal M1 bifurcation. Normal left M1 and M2 segments of the middle cerebral arteries, with a normal M1 bifurcation. Normal right posterior communicating artery (PCOM). Normal left posterior communicating artery (PCOM). Normal bilateral vertebral arteries. Normal basilar artery with a normal basilar bifurcation. The visualized bilateral superior cerebellar (SCA) arteries are normal. Normal bilateral P1, P2 and visualized P3 segments of the posterior cerebral arteries. There is no demonstrated aneurysm of the [place]. There is no demonstrated abnormality of the visualized brain. AORTIC ARCH: Normal visualized aortic arch. Normal origins of the brachiocephalic, left common carotid, and left subclavian arteries. RIGHT CAROTID ARTERIES: Normal right common carotid artery (CCA). Normal right common carotid bulb. Normal origin of the right internal carotid (ICA) artery without a hemodynamically significant stenosis. Normal visualized cervical portion of the right internal carotid artery. Normal origin of the right external carotid artery (ECA). LEFT CAROTID ARTERIES: Normal left common carotid artery (CCA). Normal left common carotid bulb. Normal origin of the left internal carotid (ICA) artery without a hemodynamically significant stenosis. Normal visualized cervical portion of the left internal carotid artery. Normal origin of the left external carotid artery (ECA). VERTEBRAL ARTERIES: Normal bilateral vertebral arteries. CT/STROKE CTA Head AND Neck W/Con IMPRESSION: Normal CTA Head and neck with contrast. Electronically Signed: Colin Kathleen MD at 23:47 EDT ,
--- NOTE | 2021-09-09 22:58 | ED.VIS.STROK ---
HPI History of Present Illness Chief Complaint: Neuro S/Sx Detail of Chief Complaint: dizziness Informant: patient Onset/Context/Timing Onset: Today Context: Sudden Onset (upon waking up this AM) Timing: Intermittent Quality and Location: Positive for Left Arm Weakness, Left Leg Weakness and - (vertigo) Current Severity: Mild Maximum Severity: Severe (vertigo) Worsened by: turning head, position changes especially lying down Relieved by: remaining still Associated Symptoms Associated Symptoms: Positive for Headache (brief, left parietal earlier, now gone) and Nausea; Negative for Vomiting and Chest Pain Narrative Narrative: Patient states he woke up this morning with vertigo, it has been off and on throughout the day, mostly off, recurring around 2.5-3 hours prior to arrival when he got up from a lying position. He last was normal last night when he went to bed at 2230. He has never had these symptoms before. He states he felt like maybe he was having some left arm and leg weakness today but he is unsure, and states this mostly because he was having trouble walking while he was vertiginous. He denies any diplopia but did have some mild blurry vision at one point when he was really spinning. He had a headache at 1 point and he has had off-and-on hearing disturbance in his left ear. He denies any ear pain, or otorrhea. No recent injury. No recent illness. Patient states he has a history of coronary disease and has a total of 21 stents in his heart. He recently had carpal tunnel syndrome on both wrists, the left one was 4 weeks ago and the right one was 2 weeks ago he still has the sutures in the right one. He states both are better now as a result of the surgeries. [facility] Medical History Atrial fibrillation CAD (coronary artery disease) Cholelithiasis with chronic cholecystitis COPD (chronic obstructive pulmonary disease) Coronary atherosclerosis of [place] coronary vessel Epidermal inclusion cyst Esophageal reflux history of ischemic stroke HTN (hypertension) Hyperlipidemia NSVT (nonsustained ventricular tachycardia) Obstructive sleep apnea syndrome Rheumatoid arthritis Screening for malignant neoplasm of intestine severe degenerative arthritis of right hip Home Medications amlodipine 5 mg tablet 5 mg PO DAILY 10/05/19 [History Last Taken 10/27/20] furosemide 40 mg tablet 40 mg PO DAILY tab 05/14/20 [History Last Taken 10/27/20] minoxidil 10 mg tablet 5 mg PO BID tab 10/05/19 [History Last Taken 10/27/20] nitroglycerin 0.4 mg sublingual tablet 0.4 mg SUBLINGUAL Q5-15M PRN tab 10/05/19 [History Last Taken Unknown] amiodarone 200 mg PO DAILY 04/01/20 [History Last Taken 10/27/20] metoprolol tartrate 50 mg PO BID 04/01/20 [History Last Taken 10/27/20] lisinopril 20 mg PO DAILY 10/27/20 [History Last Taken 10/27/20] spironolactone [Aldactone] 25 mg PO DAILY 10/27/20 [History Last Taken 10/27/20] atorvastatin 80 mg PO QHS #30 tab 10/31/20 [Rx Last Taken Unknown] ezetimibe 10 mg PO DAILY #30 tab 10/31/20 [Rx Last Taken Unknown] clopidogrel [Plavix] 75 mg PO DAILY 09/09/21 [History Last Taken Unknown] meclizine 25 mg PO Q8H PRN PRN #20 tab 09/10/21 [Rx Last Taken Unknown] Allergy/AdvReac Type Severity Reaction Status Date / Time Penicillins Allergy Hives Verified 09/09/21 22:45 Family History Sister Cancer ovarian Brother Diabetes Surgical History History of cardiac catheterization History of colonoscopy (~2014) History of coronary angioplasty History of esophagogastroduodenoscopy (EGD) (~2014) History of heart artery stent History of inguinal hernia repair History of knee joint replacement History of left shoulder replacement History of total left hip arthroplasty History of total right hip arthroplasty Hx of cholecystectomy S/P PTCA (percutaneous transluminal coronary angioplasty) Social History Smoking Status: Never smoker ROS ROS ED Constitutional Constitutional ED: Denies chills or fever(s) Eyes Eyes: Reports blurry vision; Denies diplopia, eye pain, floaters, loss of peripheral vision or loss of vision ENT ENT ED: Denies rhinorrhea or sore throat Cardiovascular Cardiovascular: Denies chest pain or palpitations Respiratory/Chest Respiratory/Chest: Denies cough or dyspnea Gastrointestinal Gastrointestinal: Denies abdominal pain, diarrhea, nausea or vomiting Genitourinary Genitourinary ED: Denies dysuria or hematuria Musculoskeletal Musculoskeletal: Denies back pain or neck pain Integumentary Denies abscess or rash Neurologic Neurologic: Reports as per HPI, headache(s), vertigo and weakness; Denies paresthesias Psychiatric Psychiatric: Denies anxiety or suicidal thoughts EXAM Physical Exam Const Vital Signs: 09/09/21 22:44 09/09/21 22:45 09/09/21 22:56 Temperature 98.1 F 98.1 F Temperature Source Temporal Oral Pulse Rate 66 68 68 Respiratory Rate 18 16 16 Blood Pressure 166/86 H 161/85 H 161/85 H Blood Pressure Mean 112 110 110 Pulse Ox 97 95 95 Oxygen Delivery Method Room Air Room Air Room Air 09/09/21 23:26 09/09/21 23:30 09/09/21 23:44 Temperature Temperature Source Pulse Rate 60 59 L 58 L Respiratory Rate 15 19 H 20 H Blood Pressure 120/65 120/65 120/65 Blood Pressure Mean 83 83 83 Pulse Ox 96 95 95 Oxygen Delivery Method Room Air Room Air Room Air 09/10/21 01:00 09/10/21 01:37 Temperature Temperature Source Pulse Rate 55 L 55 L Respiratory Rate 22 H 19 H Blood Pressure 121/73 H 128/83 H Blood Pressure Mean 89 Pulse Ox 95 95 Oxygen Delivery Method Room Air Positive well nourished, well developed and obese General Appearance ED: well developed and NAD Nutritional Appearance: obese HEENT Reports EAC's normal, TM's clear and moist mucous membranes normocephalic and atraumatic Tympanic Membrane ED: Yes TM's clear Eyes PERRL and EOMs intact bilaterally Eyes Narrative: Horizontal nystagmus but patient has a hard time holding it. No vertical or rotatory nystagmus. Neck full ROM, supple and no carotid bruits Resp normal respiratory effort and clear to auscultation bilaterally Cardio regular rate, regular rhythm and no murmurs GI non-tender and non-distended Auscultation: normoactive bowel sounds Palpation: soft Back/Spine no CVA tenderness General Back: other FROM Extremity normal to inspection General Extremety ED: Negative for edema, pulses abnormal or tenderness General Extremity: Negative for edema or pulses abnormal Neuro oriented x3, CN's II-XII intact bilaterally and no sensory deficits noted Neuro Narrative: Normal bydwmi-ro-mcgn and rscc-vd-odbe bilaterally. Positive [place] to the left with horizontal nystagmus. Abnormal jolt test. Sensorium / Orientation: awake and alert Motor Exam: strength 5/5 throughout and no pronator drift Psych mental status grossly normal Skin no rashes or lesions noted and no wounds Rashes: no rashes STROKE Vital Signs/Narrative: Vital Signs Temp Pulse Resp BP Pulse Ox 09/09/21 23:44 58 L 20 H 120/65 95 09/09/21 23:30 59 L 19 H 120/65 95 09/09/21 23:26 60 15 120/65 96 09/09/21 22:56 98.1 F 68 16 161/85 H 95 09/09/21 22:45 98.1 F 68 16 161/85 H 95 09/09/21 22:44 66 18 166/86 H 97 NIHSS Initial: 1a Level of Consciousness: 0 1b LOC Questions (Score 2 if aphasic/stupor): 0 1c LOC Commands (Only score 1st attempt): 0 2 Best Gaze (If aphasic, use reflexive mvmts.): 0 3 Visual: 0 4 Facial Palsy: 0 5 Motor Arm Right (UN = amputation/fusion): 0 5 Motor Arm Left: 0 6 Motor Leg Right: 0 6 Motor Leg Left: 0 7 Limb ataxia (Only + if out of proportion): 0 8 Sensory (Aphasia/stupor=0 or 1, coma=2): 0 9 Best Language: 0 10 Dysarthria (mute, coma=2, intubated=UN): 0 11 Extinction and Inattention (only scored if +): 0 Total Score: 0 MDM MDM MDM Narrative Medical decision making narrative: Patient most likely having peripheral vertigo related to the left ear, however with him complaining of left-sided weakness although he has no objective neurologic deficits peripherally, he has a significant history of vascular disease in his heart and his BP is currently elevated, I feel like it would be in the patient's best interest to have imaging of his brain and vasculature performed emergently which was done. These were negative for anything acute, there were no stenoses or aneurysm seen on his CT angiography. The rest of his work-up was normal except for a troponin that returned elevated at 311, he does have chronic renal insufficiency that is stable compared with prior. I see no prior high sensitivity troponin measurements here, but he has had multiple older troponin assay measurements that most of which were nonspecifically elevated, as this one is. He is not having any symptoms of angina and his EKG is unchanged with no acute ischemic abnormalities at this time. I do think his vertigo is peripheral in nature, after swallow evaluation here by nursing he will be given meclizine and observed until we can get a repeat troponin 2 hours after the initial. If it is not trending up I believe he can safely be discharged home on meclizine with close outpatient follow-up with his doctor and/or ENT. Lab Data Attestation: I reviewed the patient's lab results. Labs: Laboratory Results - last 24 hr 09/09/21 09/09/21 09/09/21 23:00 23:00 23:02 WBC 9.5 RBC 4.43 L Hgb 13.3 Hct 40.3 MCV 91.0 MCH 30.0 MCHC 33.0 RDW Std Deviation 43.8 RDW Coeff of Santhosh 13.2 Plt Count 264 MPV 9.9 Immature Gran % (Auto) 0.400 Neut % (Auto) 67.9 Lymph % (Auto) 23.5 [place] % (Auto) 6.9 Eos % (Auto) 0.8 Baso % (Auto) 0.5 Absolute Neuts (auto) 6.5 Absolute Lymphs (auto) 2.24 Nucleated RBC % 0 Sodium 142 Potassium 3.9 Chloride 108 H Carbon Dioxide 31.0 Anion Gap 3 L BUN 29 H Creatinine 1.57 H Estim Creat Clear Calc 51.88 Est GFR (MDRD) Af Amer 57 L Est GFR (MDRD) Non-Af 47 L BUN/Creatinine Ratio 18.5 Glucose 151 H Calcium 9.2 Troponin I High Sens 311 H* POC Glucose 149 H 09/10/21 01:00 WBC RBC Hgb Hct MCV MCH MCHC RDW Std Deviation RDW Coeff of Santhosh Plt Count MPV Immature Gran % (Auto) Neut % (Auto) Lymph % (Auto) [place] % (Auto) Eos % (Auto) Baso % (Auto) Absolute Neuts (auto) Absolute Lymphs (auto) Nucleated RBC % Sodium Potassium Chloride Carbon Dioxide Anion Gap BUN Creatinine Estim Creat Clear Calc Est GFR (MDRD) Af Amer Est GFR (MDRD) Non-Af BUN/Creatinine Ratio Glucose Calcium Troponin I High Sens 294 H* POC Glucose Radiography Diagnostic Testing: Clinical Impression(s) from Imaging Studies Brain CT 09/09/21 22:56 ADDENDUM: 09/10/21 0645 Head/Neck CTA 09/09/21 22:57 IMPRESSION: Normal CTA Head and neck with contrast. Electronically Signed: Colin Kathleen MD at 23:47 EDT , ADDENDUM: 09/10/21 0003 IMPRESSION: Normal CTA Head and neck with contrast. N.B. : The above Results were Read Back by Colin Kathleen MD to Dr. Rizwan MD, and understanding confirmed on 09/09/2021 23:56:34 (ET). Electronically Signed: Colin Kathleen MD at 23:47 EDT , EKG Initial EKG: Attestation: I personally reviewed and interpreted this EKG as follows: Interpretation: Sinus Rhythm (60) and No Acute Injury Pattern Comments: old inferior infarct Prior EKG tracings: available for review Prior: Unchanged Stroke Documentation Questions Stroke Team Activated: No (Last known well 24.5 hours ago) Was Patient considered for Endovascular Intervention?: No-CTA negative, determined not to be an endovascular candidate IV Alteplase (t-PA) Administered: No (timing, unlikely central/stroke etiology) Discharge Plan Triage Chief Complaint: Neuro S/Sx ED Provider: [place] Dx/Rx/DC Orders Clinical Impression: Peripheral positional vertigo of left ear, Chronic renal insufficiency, Elevated troponin Instructions: Vertigo Inner Ear Problems Prescriptions: New meclizine [meclizine] 25 MG tablet 25 mg PO Q8H PRN PRN (Reason: Dizziness) Qty: 20 RF: 0 No Action nitroglycerin 0.4 mg tablet, sublingual 0.4 mg SUBLINGUAL Q5-15M PRN (Reason: cp) RF: 0 amlodipine [Norvasc] 5 mg tablet 5 mg PO DAILY RF: 0 furosemide 40 mg tablet 40 mg PO DAILY RF: 0 minoxidil 10 mg tablet 5 mg PO BID RF: 0 amiodarone 200 MG tablet 200 mg PO DAILY RF: 0 metoprolol tartrate 50 MG tablet 50 mg PO BID RF: 0 lisinopril 20 mg Tablet 20 mg PO DAILY RF: 0 spironolactone [Aldactone] 25 mg Tablet 25 mg PO DAILY RF: 0 atorvastatin 80 mg Tablet 80 mg PO QHS Qty: 30 RF: 0 ezetimibe 10 mg Tablet 10 mg PO DAILY Qty: 30 RF: 0 clopidogrel [Plavix] 75 mg Tablet 75 mg PO DAILY RF: 0 Primary Care Provider: Vinayak Ontiveros Referrals: Vinayak Ontiveros MD [Primary Care Provider] - 3-5 Days if not improving Disposition Discharge Date/Time: 09/10/21 01:50
[2021-09-09 23:10] LABS: Bedside Glucose 149 mg/dL (74-106)
[2021-09-09 23:26] VITALS: BP 120/65; PULSE 60; RESP 15; O2SAT 96
[2021-09-09 23:30] VITALS: BP 120/65; PULSE 59; RESP 19; O2SAT 95
[2021-09-09 23:33] LABS: Absolute Lymphocyte Count 2.24 X10^3/uL (0.83-4.51); Absolute Neutrophil Count 6.5 X10^3/uL (2.0-7.7); Basophil# 0.05 X10^3/uL; Basophil% 0.5 % (0-1); Eosinophil# 0.08 X10^3/uL; Eosinophils% 0.8 % (0-5); Hematocrit 40.3 % (40-54); Hemoglobin 13.3 g/dL (13.0-16.5); Lymphocyte # 2.24 X10^3/ul (0.83-4.51); Lymphocyte % 23.5 % (19-41); Mean Platelet Vol. 9.9 fl (6.2-12.0); Monocyte# 0.66 X10^3/uL; Monocyte% 6.9 % (0-10); NRBC Flagged by Analyzer 0 % (0-5); Neutrophil # 6.45 X10^3/uL (2.7-7.7); Neutrophil % 67.9 % (47-70); Platelet Count 264 K/mm3 (150-450); RBC Distribution Width CV 13.2 % (11.6-14.6); RBC Distribution Width SD 43.8 fl (35.1-43.9); Red Blood Count 4.43 M/mm3 (4.6-6.2); White Blood Count 9.5 K/mm3 (4.4-11.0)
[2021-09-09 23:44] VITALS: BP 120/65; PULSE 58; RESP 20; O2SAT 95; BMI 41.5
[2021-09-09 23:44] LABS: Anion Gap 3 (5-15); BUN 29 mg/dL (7-18); BUN/Creat Ratio 18.5 RATIO (10-20); Calcium,Total 9.2 mg/dL (8.5-10.1); Chloride 108 mmol/L (98-107); Creatinine, Serum 1.57 mg/dL (0.70-1.30); EST Glomerular Filtration Rate 47 mL/min (>60); Est Glom Filt Rate - Afr Amer 57 mL/min (>60); Estimated Creatinine Clearance 51.88 ml/min; Glucose 151 mg/dL (74-106); Potassium 3.9 mmol/L (3.5-5.1); Sodium Level 142 mmol/L (136-145); Troponin-I HS 311 pg/mL (3.0-78.0)
[2021-09-10] MEDS: Meclizine HCl 25 MG Tablet PO (00:08)
[2021-09-10 01:00] VITALS: BP 121/73; PULSE 55; RESP 22; O2SAT 95
[2021-09-10 01:29] LABS: Troponin-I HS 294 pg/mL (3.0-78.0)
[2021-09-10 01:37] VITALS: BP 128/83; PULSE 55; RESP 19; O2SAT 95
== END 2021-09-10 01:50 | disposition home or self-care (01) ==
PROVIDERS: Emergency Provider Emergency Medicine; PCP Family Medicine; Visit Provider Emergency Medicine
DX: H81.392 Other peripheral vertigo, left ear (principal); M06.9 Rheumatoid arthritis, unspecified; J44.9 Chronic obstructive pulmonary disease, unspecified; I48.91 Unspecified atrial fibrillation; N18.9 Chronic kidney disease, unspecified; R79.89 Other specified abnormal findings of blood chemistry; I25.10 Atherosclerotic heart disease of native coronary artery without angina pectoris; Z95.5 Presence of coronary angioplasty implant and graft; Z87.19 Personal history of other diseases of the digestive system; K21.9 Gastro-esophageal reflux disease without esophagitis; I12.9 Hypertensive chronic kidney disease with stage 1 through stage 4 chronic kidney disease, or unspecified chronic kidney disease; E78.5 Hyperlipidemia, unspecified; G47.33 Obstructive sleep apnea (adult) (pediatric); Z79.899 Other long term (current) drug therapy; Z79.02 Long term (current) use of antithrombotics/antiplatelets
CPT/HCPCS: 70450; 70496; 70498; 80048; 82962; 84484; 85025; 93005; 99284; Q9967; A4216

== ENCOUNTER → 2021-10-09 | Outpatient (CLI) | payer MEDICARE, OTHER, SELFPAY ==
--- NOTE | 2021-10-09 09:18 | RAD_ITS ---
STUDY: X-RAY - ESOPHAGUS (BARIUM SWALLOW) WITH FLUOROSCOPY REASON FOR EXAM: Male, 65 years old. DYSPHAGIA TECHNIQUE: 14 view(s) of the esophagus were obtained following swallowing of barium. FLUOROSCOPY TIME (if supplied): (27 seconds) minutes/seconds COMPARISON: None. FINDINGS: There is no demonstrated esophageal foreign body. There is no demonstrated stricture or mucosal abnormality. Normal gastroesophageal junction, without a demonstrated hiatal hernia. The patient ingested a 12 mm tablet of barium without any difficulty. There is atherosclerotic tortuosity of the aortic arch and descending thoracic aorta. Normal visualized pulmonary parenchyma. There are diffuse degenerative changes of the visualized thoracic spine. RAD/Esophagus Single Contrast IMPRESSION: Normal plain film x-ray examination (barium swallow) of the esophagus. Electronically Signed: Beka Zuleta MD at 9:58 EDT ,
== END | disposition home or self-care (01) ==
PROVIDERS: PCP Family Medicine; Visit Provider Otolaryngology Otolaryngology/Facial Plastic Surgery
DX: R13.10 Dysphagia, unspecified (principal)
CPT/HCPCS: 74220

== ENCOUNTER → 2021-10-31 | Outpatient (CLI) | payer MEDICARE, OTHER, SELFPAY ==
[2021-10-31 10:17] LABS: Hematocrit 38.8 % (40-54); Hemoglobin 12.7 g/dL (13.0-16.5); Mean Corp Hgb Conc 32.7 g/dL (32-36); Mean Corpuscular Hgb 29.9 pg (27.0-32.0); Mean Corpuscular Volume 91.3 fL (80-94); Mean Platelet Vol. 9.8 fl (6.2-12.0); Platelet Count 233 K/mm3 (150-450); RBC Distribution Width CV 13.8 % (11.6-14.6); RBC Distribution Width SD 46.2 fl (35.1-43.9); Red Blood Count 4.25 M/mm3 (4.6-6.2); White Blood Count 7.8 K/mm3 (4.4-11.0)
[2021-10-31 10:58] LABS: AST(SGOT) 19 U/L (15-37); Alanine Aminotransfer ALT/SGPT 43 U/L (16-61); Albumin, Serum 3.6 g/dL (3.2-5.0); Alkaline Phosphatase 100 U/L (45-117); Anion Gap 3 (5-15); BUN 17 mg/dL (7-18); BUN/Creat Ratio 15.9 RATIO (10-20); Calcium,Total 8.5 mg/dL (8.5-10.1); Chloride 110 mmol/L (98-107); Creatinine, Serum 1.07 mg/dL (0.70-1.30); EST Glomerular Filtration Rate 74 mL/min (>60); Est Glom Filt Rate - Afr Amer 89 mL/min (>60); Globulin 3.7 g/dL (2.2-4.2); Glucose 107 mg/dL (74-106); Protein, Total 7.3 g/dL (6.4-8.2); Sodium Level 139 mmol/L (136-145); Thyroid Stim Hormone (TSH) 1.21 uIU/mL (0.358-3.74)
== END | disposition home or self-care (01) ==
LOC: LAB 09:39
PROVIDERS: PCP Family Medicine
DX: I48.0 Paroxysmal atrial fibrillation (principal); I25.118 Atherosclerotic heart disease of native coronary artery with other forms of angina pectoris
CPT/HCPCS: 36415; 80053; 84443; 85027

== ENCOUNTER 2022-01-12 10:16 | Day surgery (SDC) | payer MEDICARE, OTHER, SELFPAY ==
--- NOTE | 2022-01-12 | ESO_PTH ---
PATIENT: SHANNON OLSON LOC: EN U#:[id number] AGE/SX: 66/M ROOM: RE01/12/[address]: Dr. Finesse Vera DO : 1955 BED: DIS: 01/12/2022 SPEC #: [id number] RECD: 01/12/22 13:32 STATUS: LALIT KYLAH #: [id number] KAILA: 01/12/22 00:[address]: Finesse Vera DEPT: SURGICAL PATHOLOGY RECD BY: Satish Lawton ENTERED: 01/12/22 14:07 SP TYPE: CYNDIE LAZARO DR: Dr. Vinayak Ontiveros MD Tissues: A - Esophagus, NOS B - Gastric mucous membrane C - Duodenum, NOS D - Cecum, NOS E - COLON BIOPSY Procedures: Special Stain Group II Surgery Specimen Level IV Alcian Blue/PAS (control) HEADER OPERATION: Colonoscopy, EGD with dilation (MAC) PRE-OP DIAGNOSIS: Chronic diarrhea, esophageal reflux, elevated total bilirubin, low hemoglobin TISSUE SUBMITTED: A ? Distal esophagus biopsy, B ? Gastric body biopsy, C ? Duodenal polyp, D ? Cecal polyp biopsy, E ? Random colon biopsy MICROSCOPIC DIAGNOSIS A. Distal esophagus, biopsy: Gastroesophageal junctional mucosa with mild chronic inflammation. Focal changes of reflux. No evidence of goblet cell metaplasia. See comment. B. Gastric body, biopsy: Mild chronic gastritis. See comment. C. Duodenal polyp, biopsy: No pathologic change. D. Cecal polyp, biopsy: Polypoid fragment of benign colonic mucosa. See comment. E. Colon, random biopsy: Fragments of benign colonic mucosa with focal hyperplastic change. See comment. AM:ashanti 01/13/2022 COMMENT A. Alcian blue/PAS stain with matched control supports the above diagnosis. B. The results of immunohistochemistry for Helicobacter pylori will be reported separately ([id number]). D. Neither hyperplastic nor adenomatous change is identified. Clinical correlation is suggested. E. Rare focal glandular epithelium is infiltrated by eosinophils. The significance of this is unclear. Clinical correlation is suggested. MICROSCOPIC DESCRIPTION Slides are reviewed. GROSS DESCRIPTION A - Received in fixative is one container labeled with the patient's name and designated distal esophagus biopsy. The specimen consists of multiple irregular fragments of light jc soft tissue that in aggregate measure 0.7 x 0.5 x 0.1 cm. The specimen is totally submitted in one cassette. B - Received in fixative is one container labeled with the patient's name and designated gastric body biopsy. The specimen consists of two irregular fragments of light jc soft tissue that in aggregate measure 0.5 x 0.5 x 0.1 cm. The specimen is totally submitted in one cassette. C - Received in fixative is one container labeled with the patient's name and designated duodenal polyp biopsy. The specimen consists of one irregular fragment of light jc soft tissue that measures 0.3 x 0.3 x 0.1 cm. The specimen is totally submitted in one cassette. D - Received in fixative is one container labeled with the patient's name and designated biopsy cecal polyp. The specimen consists of one irregular fragment of light jc soft tissue that measures 0.3 x 0.3 x 0.1 cm. The specimen is totally submitted in one cassette. E - Received in fixative is one container labeled with the patient's name and designated random colon biopsy. The specimen consists of multiple irregular fragments of light jc soft tissue that in aggregate measure 2 x 0.4 x 0.1 cm. The specimen is totally submitted in one cassette. / SJ:rg 01/12/2022 TC:3 CPT: 56350 x5, 22893
[2022-01-12 10:42] VITALS: BP 121/70; PULSE 52; RESP 16; TEMP 36.4; O2SAT 96; BMI 38.0
[2022-01-12] MEDS: Lactated Ringers 1,000 ML 15 ML IV (10:45)
--- NOTE | 2022-01-12 11:00 | PCM.HP.BLA ---
History and Physical Date of Admission: 01/12/22 SHANNON OLSON, is a 66 M who presents to the office today for referred by ENT for dysphagia, acid reflux. Esophagram was normal. Used to take Prilosec before he had cholecystectomy. Rarely he'll take TUMS. If he eats too late, then he may have food regurgitation at night. Other times just acid refluxes. No heart burn. No cough. Sometimes feels like food sticks in the upper esophagus, no particular foods. He had EGD in 2011. No nausea. Wants to avoid meds if possible. More bothered by diarrhea which began after having COVID in 03/2020. Urgent diarrhea after eating, but gets constipation from Imodium. Urgent diarrhea every morning after breakfast, can have up to 6 BMs. Starts soft stools then becomes watery. Some days he will have diarrhea after other meals too. No abd pain or cramping. No melena or hematochezia. Not having nocturnal symptoms. Likes to travel, but diarrhea is preventing him from traveling. 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 02/20/[address] Bess--sigmoid diverticulosis, tortuous colon, no specimens; recommend repeat in 10 yrs. 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 [employer] Comorbidities include atrial fibrillation, coronary artery disease, COPD, history of stroke, hypertension, hyperlipidemia, sleep apnea, rheumatoid arthritis Past surgical history includes multiple cardiac stents, multiple joint replacements, cholecystectomy ROS Const Constitutional: No fatigue ENT ENT: Positive for difficulty swallowing Gastro GI: Positive for constipation, diarrhea, heartburn, difficulty swallowing and nausea/dyspepsia; No abdominal pain, belching, bloating, change in bowel habits, change in stool character, coffee ground emesis, cramping, feeling full early, excessive flatus, incontinent of stools, Vomiting blood/hematemesis, Blood in stool, loose stools, Black,tarry stools, pain with swallowing, vomiting or other Musc Musculoskeletal: No joint pain Skin Skin: No yellowing of the eye or itchy eyes Psych Psychiatric: No anxiety and No depression Endo Endocrine: No fatigue Aller/Imm Allergy/Immunologic: No itchy eyes Flip/Lymp Hematologic/Lymphatic: No easy bleeding or easy bruising Exam Const General: cooperative and comfortable Nutritional Appearance: obese HENMT Head: normal to inspection Eyes General: appearance normal, both eyes and all related structures Resp Effort & Inspection: normal respiratory effort GI Palpation: soft, no masses and nontender Neuro General: patient alert, patient awake and patient oriented x3 Speech: speech normal Gait: normal gait Psych Mood: euthymic mood Affect: normal affect Quality Reporting Tobacco Screening ([facility] 138) Smoking Status: Never smoker Assessment and Plan Assessment and Plan (1) Chronic diarrhea: ?Status:?Chronic ?Plan: 66-year-old male with acid reflux, regurgitation, dysphagia.? He has chronic postprandial diarrhea since having COVID in 2020.? He will be scheduled for EGD to evaluate for esophagitis, Doyle's, esophageal stricture, hiatal hernia, gastritis, peptic ulcer disease.? We discussed treatment with PPI therapy but he prefers to hold off on medications at this time.? Differential diagnosis for the diarrhea includes dumping syndrome, infection, microscopic colitis.? She will have colonoscopy at the same time as his upper endoscopy.? We discussed treatment such as colestipol, hold off for now per pt preference, test for infection and inflammation, schedule colonoscopy.? Follow-up 2 weeks after endoscopy.? We will also evaluate him because of his elevated bilirubin and low hemoglobin, labs ordered today, we will notify him of results and any further evaluation needed. (2) Esophageal reflux: ?Status:?Chronic ?Qualifiers: ?Esophagitis presence:?without esophagitis? Qualified Code(s):?K21.9 - Gastro-esophageal reflux disease without esophagitis ?Plan: Discussed PPI, will hold off for now, will schedule EGD (3) Total bilirubin, elevated: ?Status:?Acute ?Plan: Will recheck, along with direct bilirubin (4) Low hemoglobin: ?Status:?Acute ?Plan: Will update, along with iron studies ? ? ? Orders: Orders Giardia Lamblia EIA Today K52.9 - Noninfective gastroenteritis and colitis, unspecified ? Ova and Parasites [id number] Today K52.9 - Noninfective gastroenteritis and colitis, unspecified, K58.9 - Irritable bowel syndrome without diarrhea ? CDIFF (PCR) Today K52.9 - Noninfective gastroenteritis and colitis, unspecified ? ENTERIC PATHOGEN PANEL STOOL Today D84.9 - Immunodeficiency, unspecified, K52.9 - Noninfective gastroenteritis and colitis, unspecified, K58.9 - Irritable bowel syndrome without diarrhea ? Bilirubin, Direct Today D64.9 - Anemia, unspecified, K52.9 - Noninfective gastroenteritis and colitis, unspecified, R17 - Unspecified jaundice ? Comprehensive Metabolic Profil Today D64.9 - Anemia, unspecified, K52.9 - Noninfective gastroenteritis and colitis, unspecified, R17 - Unspecified jaundice ? Ferritin Today D64.9 - Anemia, unspecified, K52.9 - Noninfective gastroenteritis and colitis, unspecified, R17 - Unspecified jaundice, Z98.890 - Other specified postprocedural states ? Iron+Iron Binding Capacity Today D64.9 - Anemia, unspecified, K52.9 - Noninfective gastroenteritis and colitis, unspecified, R17 - Unspecified jaundice ? CBC W/Diff, Automated Today D64.9 - Anemia, unspecified, K21.9 - Gastro-esophageal reflux disease without esophagitis, K52.9 - Noninfective gastroenteritis and colitis, unspecified, R17 - Unspecified jaundice ? Celiac Disease Profile Today D64.9 - Anemia, unspecified, K52.9 - Noninfective gastroenteritis and colitis, unspecified, R17 - Unspecified jaundice ? I have re-examined the patient. There are no clinical changes since date of exam.
--- NOTE | 2022-01-12 11:10 | EKG12_ITS ---
Test Reason : PREOP Blood Pressure : / mmHG Vent. Rate : 052 BPM Atrial Rate : 052 BPM P-R Int : 192 ms QRS Dur : 110 ms QT Int : 498 ms P-R-T Axes : 033 -05 001 degrees QTc Int : 463 ms Sinus bradycardia Inferior infarct , age undetermined Poor R wave progression Abnormal ECG Confirmed by LULU ALVARADO, CATRACHITO ([id number]), advertising editor GIA LING ([id number]) on 01/14/2022 11:39:00 AM Referred By: Vinayak Ontiveros Confirmed By:CATRACHITO LAWSON MD
--- NOTE | 2022-01-12 11:30 | IMM_PTH ---
PATIENT: SHANNON OLSON LOC: EN U#:[id number] AGE/SX: 66/M ROOM: RE01/12/[address]: Dr. Finesse Vera DO : 1955 BED: DIS: 01/12/2022 SPEC #: [id number] RECD: 01/12/22 14:16 STATUS: LALIT RENatalia #: [id number] KAILA: 01/12/22 11:[address]: Finesse Vera DEPT: IMMUNOHISTOCHEMISTRY RECD BY: Aruna Acharya ENTERED: 01/12/22 14:17 SP TYPE: IMMUNO OTHR DR: Dr. Vinayak Ontiveros MD Tissues: B - Stomach, NOS Procedures: H Pylori (initial) [facility] [address] [address] SPECIMEN INFORMATION: Tissue Source: B ? Gastric body biopsy Clinical Info: Chronic diarrhea, esophageal reflux, elevated total bilirubin, low hemoglobin Specimen Number: [id number] CPT code: 29250 METHODOLOGY: Deparaffinized sections of prefer/formalin-fixed tissue or PAP/DQ stained slides are incubated with monoclonal/polyclonal antibodies/oligonucleotide probes. Localization is made via biotin free immunoperoxidase method. Appropriate controls are performed and reacted as expected. Results on target cell population are indicated in the following table: RESULTS: ANTIBODY / CLONE RESULT Block B H Pylori (polyclonal) negative These tests were developed and their performance characteristics determined by [facility]. They may not have been cleared or approved by the U.S. Food and Drug Administration. The FDA has determined that such clearance or approval is not necessary. The above immunohistochemical/dualISH markers are ordered and reviewed by the Pathologist. INTERPRETATION: B. Gastric body, biopsy: Negative for Helicobacter pylori organisms. AM:ashanti 01/14/2022
[2022-01-12 13:02] VITALS: BP 106/61; BP 121/70; PULSE 72; RESP 16; TEMP 37.5; O2SAT 95
[2022-01-12 13:05] VITALS: BP 109/64; BP 121/70; PULSE 71; RESP 16; O2SAT 95
--- NOTE | 2022-01-12 13:07 | OP.EGD_ITS ---
Patient Name: Timo Dickerson Procedure Date: 01/12/2022 12:19 PM Date of : 1955 Age: 66 Procedure: Upper GI endoscopy Indications: Dysphagia, Heartburn Providers: Finesse Vera DO Medicines: Monitored Anesthesia Care Patient Profile: This is a 66 year old male. Refer to note in patient chart for documentation of history and physical. Patient has symptoms. Complications: No immediate complications. Procedure: Pre-Anesthesia Assessment: - Prior to the procedure, a History and Physical was performed, and patient medications and allergies were reviewed. The risks and benefits of the procedure and the sedation options and risks were discussed with the patient. All questions were answered and informed consent was obtained. Patient identification and proposed procedure were verified by the physician in the pre-procedure area. Mental Status Examination: alert and oriented. Airway Examination: normal oropharyngeal airway and neck mobility. Respiratory Examination: clear to auscultation. CV Examination: normal. Prophylactic Antibiotics: The patient does not require prophylactic antibiotics. Prior Anticoagulants: The patient has taken no previous anticoagulant or antiplatelet agents. ASA Grade Assessment: II - A patient with mild systemic disease. After reviewing the risks and benefits, the patient was deemed in satisfactory condition to undergo the procedure. The anesthesia plan was to use moderate sedation / analgesia (conscious sedation). Immediately prior to administration of medications, the patient was re-assessed for adequacy to receive sedatives. The heart rate, respiratory rate, oxygen saturations, blood pressure, adequacy of pulmonary ventilation, and response to care were monitored throughout the procedure. The physical status of the patient was re-assessed after the procedure. After obtaining informed consent, the endoscope was passed under direct vision. Throughout the procedure, the patient's blood pressure, pulse, and oxygen saturations were monitored continuously. The colonoscope was introduced through the mouth, and advanced to the second part of duodenum. The upper GI endoscopy was accomplished without difficulty. The patient tolerated the procedure well. Scope In: 12:32:27 PM Scope Out: 12:38:32 PM Total Procedure Duration Time 0 hours 6 minutes 5 seconds Findings: A moderate Schatzki ring was found in the lower third of the esophagus. A guidewire was placed and the scope was withdrawn. Dilation was performed with a Savary dilator with no resistance at 60 Fr. The dilation site was examined following endoscope reinsertion and showed complete resolution of luminal narrowing. Estimated blood loss was minimal. The Z-line was irregular and was found 41 cm from the incisors. Biopsies were taken with a cold forceps for histology. Verification of patient identification for the specimen was done. Estimated blood loss was minimal. A small hiatal hernia was present. Diffuse moderate inflammation characterized by congestion (edema), erosions and erythema was found in the entire examined stomach. Biopsies were taken with a cold forceps for histology. Verification of patient identification for the specimen was done. Estimated blood loss was minimal. A single 5 mm sessile polyp was found in the duodenal bulb. The polyp was removed with a cold snare. Resection and retrieval were complete. Verification of patient identification for the specimen was done. Estimated blood loss was minimal. Impression: - Moderate Schatzki ring. Dilated. - Z-line irregular, 41 cm from the incisors. Biopsied. - Small hiatal hernia. - Gastritis. Biopsied. - A single duodenal polyp. Resected and retrieved. Recommendation: - Discharge patient to home. - Resume previous diet. - Continue present medications. - Await pathology results. - Repeat upper endoscopy for surveillance based on pathology results. - Return to GI office. Procedure Code(s): --- Professional --- 97953, Esophagogastroduodenoscopy, flexible, transoral; with removal of tumor(s), polyp(s), or other lesion(s) by snare technique [id number], Esophagogastroduodenoscopy, flexible, transoral; with insertion of guide wire followed by passage of dilator(s) through esophagus over guide wire 67329, 59,51, Esophagogastroduodenoscopy, flexible, transoral; with biopsy, single or multiple CPT copyright 2017 [employer]. All rights reserved. The codes documented in this report are preliminary and upon artistic director review may be revised to meet current compliance requirements. Finesse Vera DO 01/12/2022 1:06:33 PM This report has been signed electronically. Number of Addenda: 1 Note Initiated On: 01/12/2022 12:19 PM Addendum Number: 1 Addendum Date: 02/26/2022 6:08:21 AM MAC was used as sedation for this procedure. Finesse Vera DO 02/26/2022 6:08:28 AM This report has been signed electronically.
--- NOTE | 2022-01-12 13:07 | OP.CCLET_ITS ---
02/26/2022 Vinayak Ontiveros Re : Upper GI endoscopy procedure for Timo Dickerson [place] This procedure was performed on Wednesday, January 12, 2022. My impressions and recommendations are as follows: Impressions : - Moderate Schatzki ring. Dilated. - Z-line irregular, 41 cm from the incisors. Biopsied. - Small hiatal hernia. - Gastritis. Biopsied. - A single duodenal polyp. Resected and retrieved. Recommendations : - Discharge patient to home. - Resume previous diet. - Continue present medications. - Await pathology results. - Repeat upper endoscopy for surveillance based on pathology results. - Return to GI office. My findings are described in the full procedure note, which is enclosed. If I can be of further assistance, please feel free to contact me at . Sincerely, Finesse Vera, 01/12/2022 1:06:33 PM This report has been signed electronically.
--- NOTE | 2022-01-12 13:09 | OP.CCLET_ITS ---
02/26/2022 Vinayak Ontiveros Re : Colonoscopy procedure for Timo Dickerson [place] This procedure was performed on Wednesday, January 12, 2022. My impressions and recommendations are as follows: Impressions : - Congested mucosa in the descending colon, at the splenic flexure and at the hepatic flexure. Biopsied. - One 4 mm polyp in the cecum, removed with a cold snare. Resected and retrieved. Recommendations : - Repeat colonoscopy in 5 years for surveillance. - Return to GI office. - Continue present medications. My findings are described in the full procedure note, which is enclosed. If I can be of further assistance, please feel free to contact me at . Sincerely, Finesse Vera, 01/12/2022 1:08:53 PM This report has been signed electronically.
--- NOTE | 2022-01-12 13:09 | OP.COLON_ITS ---
Patient Name: Timo Dickerson Procedure Date: 01/12/2022 12:38 PM Date of : 1955 Age: 66 Procedure: Colonoscopy Indications: Clinically significant diarrhea of unexplained origin Providers: Finesse Vera DO Medicines: Monitored Anesthesia Care Patient Profile: This is a 66 year old male. Refer to note in patient chart for documentation of history and physical. Patient has symptoms. Last Colonoscopy: 5 years ago. Complications: No immediate complications. Procedure: Pre-Anesthesia Assessment: - Prior to the procedure, a History and Physical was performed, and patient medications and allergies were reviewed. The risks and benefits of the procedure and the sedation options and risks were discussed with the patient. All questions were answered and informed consent was obtained. Patient identification and proposed procedure were verified by the physician in the pre-procedure area. Mental Status Examination: alert and oriented. Airway Examination: normal oropharyngeal airway and neck mobility. Respiratory Examination: clear to auscultation. CV Examination: normal. Prophylactic Antibiotics: The patient does not require prophylactic antibiotics. Prior Anticoagulants: The patient has taken no previous anticoagulant or antiplatelet agents. ASA Grade Assessment: II - A patient with mild systemic disease. After reviewing the risks and benefits, the patient was deemed in satisfactory condition to undergo the procedure. The anesthesia plan was to use moderate sedation / analgesia (conscious sedation). Immediately prior to administration of medications, the patient was re-assessed for adequacy to receive sedatives. The heart rate, respiratory rate, oxygen saturations, blood pressure, adequacy of pulmonary ventilation, and response to care were monitored throughout the procedure. The physical status of the patient was re-assessed after the procedure. After I obtained informed consent, the scope was passed under direct vision. Throughout the procedure, the patient's blood pressure, pulse, and oxygen saturations were monitored continuously. The colonoscope was introduced through the anus and advanced to the cecum, identified by appendiceal orifice and ileocecal valve. The colonoscopy was performed without difficulty. The patient tolerated the procedure well. The quality of the bowel preparation was good. Scope In: 12:41:09 PM Scope Withdrawal Time 0 hours 11 minutes 39 seconds Scope Out: 12:55:02 PM Total Procedure Duration Time 0 hours 13 minutes 53 seconds Findings: An area of mildly congested mucosa was found in the descending colon, at the splenic flexure and at the hepatic flexure. Biopsies were taken with a cold forceps for histology. Verification of patient identification for the specimen was done. Estimated blood loss was minimal. A 4 mm polyp was found in the cecum. The polyp was sessile. The polyp was removed with a cold snare. Resection and retrieval were complete. Verification of patient identification for the specimen was done. Estimated blood loss was minimal. Impression: - Congested mucosa in the descending colon, at the splenic flexure and at the hepatic flexure. Biopsied. - One 4 mm polyp in the cecum, removed with a cold snare. Resected and retrieved. Recommendation: - Repeat colonoscopy in 5 years for surveillance. - Return to GI office. - Continue present medications. Procedure Code(s): --- Professional --- 63545, Colonoscopy, flexible; with removal of tumor(s), polyp(s), or other lesion(s) by snare technique 00664, 59, Colonoscopy, flexible; with biopsy, single or multiple CPT copyright 2017 [employer]. All rights reserved. The codes documented in this report are preliminary and upon wind energy engineer review may be revised to meet current compliance requirements. Finesse Vera DO 01/12/2022 1:08:53 PM This report has been signed electronically. Number of Addenda: 1 Note Initiated On: 01/12/2022 12:38 PM Addendum Number: 1 Addendum Date: 02/26/2022 6:08:35 AM MAC was used as sedation for this procedure. Finesse Vera DO 02/26/2022 6:08:39 AM This report has been signed electronically.
[2022-01-12 13:10] VITALS: BP 113/64; BP 121/70; PULSE 68; RESP 16; O2SAT 97
[2022-01-12 13:15] VITALS: BP 117/59; BP 121/70; PULSE 68; RESP 16; TEMP 37.2; O2SAT 95
[2022-01-12 13:30] VITALS: BP 121/70
== END 2022-01-12 13:46 | disposition home or self-care (01) ==
LOC: EN 10:17 → AC 10:19
PROVIDERS: PCP Family Medicine; Referring Provider Family Medicine; Visit Provider Internal Medicine Gastroenterology
PROC: 0DJD8ZZ Inspection of Lower Intestinal Tract, Via Natural or Artificial Opening Endoscopic (ICD-10-PCS; CPT 45378; principal; 2022-01-12 11:25)
DX: K22.2 Esophageal obstruction (principal); J44.9 Chronic obstructive pulmonary disease, unspecified; I48.91 Unspecified atrial fibrillation; K44.9 Diaphragmatic hernia without obstruction or gangrene; K29.50 Unspecified chronic gastritis without bleeding; D12.0 Benign neoplasm of cecum; K31.7 Polyp of stomach and duodenum; K52.9 Noninfective gastroenteritis and colitis, unspecified; R13.10 Dysphagia, unspecified; K21.9 Gastro-esophageal reflux disease without esophagitis; I25.10 Atherosclerotic heart disease of native coronary artery without angina pectoris; I44.7 Left bundle-branch block, unspecified; I25.2 Old myocardial infarction; I11.9 Hypertensive heart disease without heart failure; E78.00 Pure hypercholesterolemia, unspecified; D64.9 Anemia, unspecified; G47.33 Obstructive sleep apnea (adult) (pediatric); Z98.61 Coronary angioplasty status; Z90.49 Acquired absence of other specified parts of digestive tract; Z79.01 Long term (current) use of anticoagulants; Z79.02 Long term (current) use of antithrombotics/antiplatelets; Z79.899 Other long term (current) drug therapy; Z86.73 Personal history of transient ischemic attack (TIA), and cerebral infarction without residual deficits; Z86.16 Personal history of COVID-19
CPT/HCPCS: 45380; 45385; 43248; 43251; 43239; 88305; 88313; 88342; 93005; J7120; C1769; J2405

== ENCOUNTER → 2022-04-01 | Outpatient (CLI) | payer MEDICARE, OTHER, SELFPAY ==
[2022-04-01 12:06] LABS: Absolute Lymphocyte Count 1.24 X10^3/uL (0.83-4.51); Absolute Neutrophil Count 6.8 X10^3/uL (2.0-7.7); Basophil# 0.03 X10^3/uL; Basophil% 0.3 % (0-1); Eosinophil# 0.09 X10^3/uL; Hematocrit 38.4 % (40-54); Hemoglobin 12.9 g/dL (13.0-16.5); Lymphocyte # 1.24 X10^3/ul (0.83-4.51); Lymphocyte % 14.3 % (19-41); Mean Corp Hgb Conc 33.6 g/dL (32-36); Mean Corpuscular Hgb 30.1 pg (27.0-32.0); Mean Corpuscular Volume 89.7 fL (80-94); Mean Platelet Vol. 9.8 fl (6.2-12.0); Monocyte# 0.54 X10^3/uL; Monocyte% 6.2 % (0-10); NRBC Flagged by Analyzer 0 % (0-5); Neutrophil # 6.78 X10^3/uL (2.7-7.7); Platelet Count 243 K/mm3 (150-450); RBC Distribution Width CV 14.2 % (11.6-14.6); RBC Distribution Width SD 46.5 fl (35.1-43.9); Red Blood Count 4.28 M/mm3 (4.6-6.2); White Blood Count 8.7 K/mm3 (4.4-11.0)
[2022-04-01 12:52] LABS: AST(SGOT) 12 U/L (15-37); Alanine Aminotransfer ALT/SGPT 24 U/L (16-61); Albumin, Serum 3.7 g/dL (3.2-5.0); Alkaline Phosphatase 99 U/L (45-117); Anion Gap 3 (5-15); BUN 23 mg/dL (7-18); Bilirubin, Direct 0.32 mg/dL (0.00-0.30); Chloride 110 mmol/L (98-107); Creatinine, Serum 1.35 mg/dL (0.70-1.30); EST Glomerular Filtration Rate 56 mL/min (>60); Est Glom Filt Rate - Afr Amer 68 mL/min (>60); Ferritin 260 ng/mL (26-388); Globulin 3.6 g/dL (2.2-4.2); Glucose 103 mg/dL (74-106); Iron 55 ug/dL (65-175); Iron Binding Capacity,Total 345 ug/dL (250-450); PERCENT IRON SATURATION 15.9 % (15.0-55.0); Protein, Total 7.3 g/dL (6.4-8.2); Sodium Level 143 mmol/L (136-145)
[2022-04-02 16:09] LABS: Endomysial Antibody IgA Negative (Negative)
[2022-04-03 15:13] LABS: Immunoglobulin A 325 mg/dL (61-437); t-Transglutaminase IgA <2 U/mL (0-3)
== END | disposition home or self-care (01) ==
LOC: LABSPEC 11:52
PROVIDERS: PCP Family Medicine; Visit Provider Nurse Practitioner Adult Health
DX: K52.9 Noninfective gastroenteritis and colitis, unspecified (principal); R17 Unspecified jaundice; D64.9 Anemia, unspecified; K21.9 Gastro-esophageal reflux disease without esophagitis
CPT/HCPCS: 36415; 80053; 82248; 82728; 82784; 83516; 83540; 83550; 85025; 86255

== ENCOUNTER 2022-08-20 11:41 | Observation (INO) | payer MEDICARE, OTHER, SELFPAY ==
--- NOTE | 2022-08-12 13:10 | RAD_ITS ---
STUDY: X-RAY CHEST REASON FOR EXAM: Male, 66 years old. Preoperative evaluation. TECHNIQUE: Frontal and lateral views of the chest. COMPARISON: June 02, 2014. FINDINGS: The lungs are clear and expanded. There is no demonstrated pleural abnormality. Stable borderline cardiomegaly. Normal mediastinum and hermilo. Normal visualized pulmonary arteries. Normal visualized aortic arch and descending thoracic aorta. Diffuse moderate thoracic spondylosis. Normal visualized ribs, clavicles, and shoulders. There is no demonstrated abnormality of the visualized soft tissue structures of the upper abdomen. RAD/Chest PA and Lateral IMPRESSION: Borderline cardiomegaly with no acute or active cardiopulmonary disease. Electronically Signed: Jersey Douglas, at 15:20 EDT ,
[2022-08-12 13:39] LABS: Absolute Lymphocyte Count 1.59 X10^3/uL (0.83-4.51); Absolute Neutrophil Count 5.9 X10^3/uL (2.0-7.7); Basophil# 0.04 X10^3/uL; Basophil% 0.5 % (0-1); Eosinophil# 0.11 X10^3/uL; Eosinophils% 1.3 % (0-5); Hematocrit 41.3 % (40-54); Hemoglobin 13.2 g/dL (13.0-16.5); Lymphocyte # 1.59 X10^3/ul (0.83-4.51); Lymphocyte % 19.2 % (19-41); Mean Corpuscular Hgb 29.2 pg (27.0-32.0); Mean Corpuscular Volume 91.4 fL (80-94); Mean Platelet Vol. 9.5 fl (6.2-12.0); Monocyte# 0.56 X10^3/uL; Monocyte% 6.8 % (0-10); NRBC Flagged by Analyzer 0 % (0-5); Neutrophil # 5.93 X10^3/uL (2.7-7.7); Neutrophil % 71.8 % (47-70); Platelet Count 241 K/mm3 (150-450); RBC Distribution Width CV 13.9 % (11.6-14.6); RBC Distribution Width SD 46.5 fl (35.1-43.9); Red Blood Count 4.52 M/mm3 (4.6-6.2); White Blood Count 8.3 K/mm3 (4.4-11.0)
[2022-08-12 13:49] LABS: International Normalized Ratio 1.1; Prothrombin Time (Protime)PT. 13.8 SECONDS (11.7-14.9)
[2022-08-12 13:50] LABS: Partial Thromboplast Time 30.4 Seconds (24.1-36.2)
[2022-08-12 14:15] LABS: AST(SGOT) 19 U/L (15-37); Alanine Aminotransfer ALT/SGPT 42 U/L (16-61); Albumin, Serum 3.8 g/dL (3.2-5.0); Alkaline Phosphatase 115 U/L (45-117); Anion Gap 6 (5-15); BUN 19 mg/dL (7-18); Bilirubin, Direct 0.24 mg/dL (0.00-0.30); Calcium,Total 8.9 mg/dL (8.5-10.1); Chloride 109 mmol/L (98-107); Creatinine, Serum 1.19 mg/dL (0.70-1.30); EST Glomerular Filtration Rate 65 mL/min (>60); Est Glom Filt Rate - Afr Amer 79 mL/min (>60); Globulin 3.6 g/dL (2.2-4.2); Glucose 106 mg/dL (74-106); Potassium 3.8 mmol/L (3.5-5.1); Protein, Total 7.4 g/dL (6.4-8.2); Sodium Level 143 mmol/L (136-145)
[2022-08-20] VITALS (11 sets, daily range): BP systolic 121–137; BP diastolic 62–80; PULSE 72–87; RESP 16–18; TEMP 36.2–37.1; O2SAT 92–98; BMI 38.5
[2022-08-20] MEDS: Lactated Ringers 1,000 ML 15 ML IV (09:42)
[2022-08-20] MEDS: Epinephrine (1 mg/ml) 1 MG/ML VIAL ×2 (10:45→11:42)
[2022-08-20] MEDS: Bupivacaine 0.25% 30 ML Vial (11:42)
--- NOTE | 2022-08-20 12:26 | PCM.OPRPT ---
Report of Operation Date of Procedure: 08/20/22 Description of Surgical Findings:: Preoperative diagnosis: 1. Left shoulder rotator cuff tear 2. Left shoulder subacromial impingement syndrome 3. Left acromioclavicular osteoarthritis 4. SLAP tear left shoulder with biceps tendinosis Postoperative diagnosis: 1. Left shoulder rotator cuff tear 2. Left shoulder subacromial impingement syndrome 3. Left acromioclavicular osteoarthritis 4. SLAP tear left shoulder with biceps tendinosis Procedure: 1. Diagnostic and operative left shoulder arthroscopy with rotator cuff repair 2. Left shoulder subacromial decompression 3. Left shoulder arthroscopic biceps tenotomy 4. Left shoulder distal clavicle excision Primary Surgeon: James Cornelius DO Epidemiologist: DIETER Bo Anesthesia: General LMA Anesthesiologist: Cooper Hayes MD Complications: None apparent Specimen: None Estimated blood loss: 20 cc IV fluids: 1400 cc crystalloid Urine output: None Packing/drains: None Implants: Arthrex 4.75 mm swivel lock anchor Intraoperative findings: Type II SLAP tear, extensive right shoulder subacromial bursitis, full-thickness crescent-shaped anterior supraspinatus tendon tear, degenerative tendinosis long head biceps tendon, degenerative labral tearing, downsloping subacromial spur, degenerative changes distal clavicle. Preoperative indications: This is a 66-year-old male seen in the outpatient setting for left shoulder pain. MRI was obtained demonstrated full-thickness rotator cuff tearing. There were laminar tearing changes of the subscapularis, degenerative changes of the biceps anchor and the biceps tendon itself, subacromial spur and distal clavicle/AC joint degenerative changes. He failed nonoperative management form of activity modification and physical therapy. Recommend surgical intervention in the form of left shoulder diagnostic and operative arthroscopy with rotator cuff repair, subacromial decompression, distal clavicle excision, and biceps tenotomy. I reviewed the risks, benefits, alternatives the procedure with the patient. Risks included but were not limited to bleeding, infection, loss of life or limb, nonhealing tendon, persistent pain, persistent weakness, stiffness, need for prolonged immobilization, prolonged therapy, DVT or PE, risk of anesthesia, neurovascular injury, need for additional surgery. Patient expressed understanding these risks and wished to proceed with surgery. Cardiac clearance was obtained prior to surgery due to extensive cardiac history. Description of procedure: Patient was identified in the preoperative holding area by name, medical record number, and date of . Informed consent was confirmed with the patient. The operative extremity was marked with a surgical marker. All questions were answered to the patient's satisfaction. At time of his procedure, patient was was brought to the operative suite and positioned supine on a standard operating table. General anesthesia was induced and LMA placed. Patient was then positioned in the lateral decubitus position with all bony prominences well-padded and an axillary roll was placed. He was held in position with a beanbag. We spun the bed approximately 20 degrees. We then prepped and draped the operative upper extremity in a normal, sterile orthopedic fashion. We performed a timeout with all parties in attendance in agreement with the side, site, and operation be performed. No concerns were voiced and we elected to proceed. 3 g Ancef was administered prior to the incision by anesthesia staff. Operative upper extremity was placed in traction utilizing a traction sleeve. 15 pounds was applied to the operative upper extremity throughout the majority of the case. I first outlined the bony landmarks of the shoulder. I established a standard posterior portal with an 11 blade scalpel. Blunt tipped trocar in cannula was inserted into the glenohumeral joint. The joint was insufflated with normal saline solution with epinephrine. Trocar was removed and diagnostic arthroscopy was commenced. I established a standard interval portal anteriorly with localization via spinal needle. Skin was sharply incised with 11 blade scalpel. I then placed a switching stick and the incision, dilated the capsulotomy and placed a rigid cannula in the anterior portal for tenodesis suture passage and hardware placement. Diagnostic arthroscopy revealed an unstable biceps anchor consistent with type II SLAP tear and significant tendinosis of the long head biceps intra-articular portion, pristine glenohumeral cartilage, laminar tearing of the subscapularis without retraction, and full-thickness anterior supraspinatus tendon tearing. There was significant chronic capsulitis noted within the rotator interval which was released with the radiofrequency ablation device. Minimal debridement was performed at the subscapularis laminar tears. I then turned my attention to the biceps tendon. Biceps tenotomy was performed with the radiofrequency ablation device and the biceps was allowed to retract into the groove. Remaining biceps tendon stump was debrided with a radial resector as well as degenerative labral tearing debrided in similar fashion. I debrided the labrum to a stable rim. I then withdrew the arthroscope. Utilizing the blunt tipped trocar, I reentered the shoulder in the subacromial space. I established a standard lateral portal under direct visualization with a spinal needle. A 11 blade scalpel was used to sharply incise the skin. Extensive subacromial bursitis was noted and debrided with a radial resector. The undersurface of the acromion was skeletonized with the radiofrequency ablator as well as peeling off the undersurface and attachment of the coracoacromial ligament. There was a downsloping likely type II spur off the distal portion of the acromion. This was resected utilizing the 5.5 mm bur to a flat acromion. I then identified the full-thickness supraspinatus tear. Degenerative edges were debrided with a radial resector. The tear was crescent in shape involving the anterior cable. I proceeded with a ripstop type single anchor lateral row repair. A fiber tape was passed utilizing the retrograde scorpion suture passer through first the anterior and then posterior limbs of the crescent tear. We then passed a fiber loop medial to the fiber tape. These were then tensioned. They were passed through the eyelet of a 4.75 mm swivel lock anchor. I then selected a point approximately 5 mm lateral to the supraspinatus footprint. The Arthrex anchor punch was then passed in appropriate depth and withdrawn. The anchor was then placed and sutures tensioned. A swivel lock was impacted and subsequently tightened to an appropriate depth with excellent, appropriate tension of the suture. The tear appeared to reapproximate to its [place] footprint very well without excessive tension. There were no identifiable dogears. I then turned my attention to the distal clavicle. Anterior and inferior AC joint capsule was released with the radiofrequency ablator. Approximately 8 mm of distal clavicle was excised with the bur. Superior and posterior joint capsule was left intact. The subacromial space was then thoroughly lavaged. Arthroscopic instruments were removed. Portal sites were closed in interrupted [id number] fashion with 4-0 nylon suture. Sterile compression dressing was applied. Patient was then placed in UltraSling. He was able to be safely extubated in the operative suite. He was transferred to his gurney and subsequently to PACU in stable condition. Postoperative plan: Patient will be placed in observation overnight for medical monitoring given his advanced cardiac history. Hospitalist service will be consulted. Plan to restart home Eliquis and Plavix postoperative day #1. Patient will be nonweightbearing to the operative extremity. He should maintain his sling at all times unless to shower. He may shower on postoperative day #2 if no significant drainage. He will follow up in approximately 2 weeks for suture removal.
--- NOTE | 2022-08-20 12:37 | EKG12_ITS ---
Test Reason : CP Blood Pressure : / mmHG Vent. Rate : 074 BPM Atrial Rate : 074 BPM P-R Int : 178 ms QRS Dur : 162 ms QT Int : 474 ms P-R-T Axes : 048 008 159 degrees QTc Int : 526 ms Normal sinus rhythm Left bundle branch block Abnormal ECG When compared with ECG of 12-JAN-2022 11:28, Left bundle branch block is now Present Criteria for Inferior infarct are no longer Present Confirmed by JHONNY ALVARADO, PEACE ([id number]), dictionary editor GIA LING ([id number]) on 08/21/2022 1:27:00 PM Referred By: James Cornelius Confirmed By:PEACE BARRY MD
--- NOTE | 2022-08-20 12:52 | SUR.PHASEI ---
AFTER MOVING PT AROUND PT C/O CHEST PRESSURE. DR PEREZ ORDERED EKG- EKG UNCHANGED, HISTORY OF BBB. AFTER PT SETTLED, PT CHEST PRESSURE LET UP. ANESTHESIA AWARE. NO FURTHER ORDERS AT THIS TIME. OK TO GO TO [facility].
--- NOTE | 2022-08-20 14:36 | PCM.PN.HOSP ---
Reason for Visit Reason for Visit: Diagnoses Encounter for other preprocedural examination (08/20/22) Subjective Subjective Mr. Dickerson is a 66-year-old male with a history of atrial fibrillation, coronary artery disease, CVA, GERD, RA, HIPOLITO who presented to [facility] 08/20/2022 for a left shoulder rotator cuff repair. His preop diagnoses were left shoulder rotator cuff tear, left shoulder subacromial impingement syndrome, left acromial clavicular osteoarthritis, SLAP tear left shoulder with biceps tendinosis. He had left shoulder subacromial decompression, arthroscopic biceps tenotomy, distal clavicle excision, and diagnostic and operative left shoulder arthroscopy with rotator cuff repair. Hospitalist consulted for medical management. In postop and he reports feeling like he got run over by a truck but is slowly starting to feel better. Pain is fair at time of evaluation. Has O2 in place and reports every time he falls asleep his oxygen starts to dip so he was placed on 2 L of O2 during our conversation he was 95% while awake. Reports sometimes he will have some waxing and waning almost tight feeling in his chest that undulate's, denies feeling short of breath or any overt chest pain and reports he thinks it was the anesthesia and he is slowly feeling better. Feels he has some trace edema in his lower extremities because he did not take his water pills this morning and did not voice any other complaints. Objective Data Objective Data Vital Signs: Vital Signs Temp Pulse Resp BP Pulse Ox O2 Del Method 98.7 F 72 18 132/66 H 92 Room Air 08/20/22 13:18 08/20/22 13:18 08/20/22 13:18 08/20/22 13:18 08/20/22 14:07 08/20/22 14:07 Oxygen Delivery Method Room Air Weight: 138 kg Body Mass Index (BMI) 38.5 Intake & Output: Intake and Output for Last 24 Hours 08/18/22 08/19/22 08/20/22 23:59 23:59 23:59 Intake Total 115 / 115 Balance 115 / 115 Lab / Micro Data Result Diagrams: 08/12/22 13:01 08/12/22 13:01 Physical Exam Narrative General: Alert, oriented, no apparent distress HEENT: Atraumatic, normocephalic Eyes: Anicteric, normal conjunctiva, extraocular movements grossly intact Neck: Supple Respiratory: Somewhat diminished at the bases which seems to be secondary to body habitus, no wheezes or rhonchi appreciated, normal respiratory effort Cardiovascular: Irregularly irregular, not tachycardic GI: Soft, nontender Extremities: Trace lower extremity edema Musculoskeletal: Left upper extremity in sling Neuro: No overt focal neurological deficits Skin: No rashes appreciated Psych: Cooperative Assessment & Plan Assessment/Plan (1) Rotator cuff disorder: PLAN: Plan #Left rotator cuff tear -With left shoulder subacromial impingement syndrome, left acromioclavicular osteoarthritis, SLAP tear of left shoulder with biceps tendinosis -on 08/20 he had He had left shoulder subacromial decompression, arthroscopic biceps tenotomy, distal clavicle excision, and diagnostic and operative left shoulder arthroscopy with rotator cuff repair w/ Dr. Cornelius -Postop management per primary #History of untreated HIPOLITO -Reports he does not use BiPAP or CPAP because they never fit his face -We will benefit from outpatient evaluation and resumption of this -Given O2 dropped when napping in bed will place order for BiPAP nightly -We will also place order for incentive spirometry -Can consider neb treatment if any increased SOB or decrease in O2 Sat -Giving dose of lasix right now since he didn't get his AM dose. -Daily weights #Atrial fibrillation -Apixaban order entered with resume date tomorrow -Continue amiodarone #History of coronary artery disease -Continue statin, resume Plavix once cleared by surgery to do so #Hypertension -Resume amlodipine, Imdur, lisinopril, minoxidil -Continue furosemide and spironolactone -We will give dose of Lasix now due to SPO2 somewhat low though suspect that sleep apnea but does have trace edema in his lower extremities and said that happens when he does not take his medication #GERD -Continue PPI #DVT ppx: At the discretion of primary Xiao Medina MD Charges/Coding Visit Charges Office Visits / Consults: 79901 OP Consult L3
[2022-08-20] MEDS: Furosemide 40 MG Tablet PO (15:23)
[2022-08-20] MEDS: Acetaminophen 500 MG Tablet 1000 MG PO (21:34)
[2022-08-20] MEDS: Minoxidil 10 MG Tablet 5 MG PO (21:34)
[2022-08-20] MEDS: Isosorbide Mononitrate 30 MG Tablet PO (21:35)
[2022-08-20] MEDS: Atorvastatin Calcium 80 MG Tablet PO (21:35)
[2022-08-20] MEDS: oxyCODONE 5 MG Tablet 10 MG PO (23:57)
[2022-08-21 02:12] VITALS: BP 148/86; PULSE 79; RESP 18; TEMP 36.4; O2SAT 96
[2022-08-21 06:12] VITALS: BP 150/80; PULSE 54; RESP 18; TEMP 36.6; O2SAT 98
[2022-08-21] MEDS: Acetaminophen 500 MG Tablet 1000 MG PO ×2 (06:16→14:42)
[2022-08-21 06:29] VITALS: BMI 39.6
[2022-08-21 06:46] LABS: Absolute Lymphocyte Count 0.67 X10^3/uL (0.83-4.51); Absolute Neutrophil Count 14.4 X10^3/uL (2.0-7.7); Basophil# 0.02 X10^3/uL; Basophil% 0.1 % (0-1); Hematocrit 37.9 % (40-54); Hemoglobin 12.1 g/dL (13.0-16.5); Lymphocyte # 0.67 X10^3/ul (0.83-4.51); Lymphocyte % 4.2 % (19-41); Mean Corp Hgb Conc 31.9 g/dL (32-36); Mean Corpuscular Hgb 29.4 pg (27.0-32.0); Mean Corpuscular Volume 92.2 fL (80-94); Mean Platelet Vol. 10.1 fl (6.2-12.0); Monocyte# 0.76 X10^3/uL; Monocyte% 4.8 % (0-10); NRBC Flagged by Analyzer 0 % (0-5); Neutrophil # 14.38 X10^3/uL (2.7-7.7); Neutrophil % 90.5 % (47-70); Platelet Count 252 K/mm3 (150-450); RBC Distribution Width CV 14.1 % (11.6-14.6); RBC Distribution Width SD 47.8 fl (35.1-43.9); Red Blood Count 4.11 M/mm3 (4.6-6.2); White Blood Count 15.9 K/mm3 (4.4-11.0)
--- NOTE | 2022-08-21 07:17 | PCM.PN.ORT ---
Subjective Subjective Patient seen and examined. Pain controlled current pain regimen. Reported some chest tightness overnight which quickly resolved and is asymptomatic this morning. Denies shortness of breath. Denies fevers, chills, nausea or vomiting. Objective Data Objective Data Vital Signs: Vital Signs Temp Pulse Resp BP Pulse Ox O2 Del Method O2 Flow Rate 98 F 54 L 18 150/80 H 98 Nasal Cannula 2 08/21/22 06:12 08/21/22 06:12 08/21/22 06:12 08/21/22 06:12 08/21/22 06:12 08/21/22 06:12 08/21/22 06:12 Oxygen Flow Rate (L/min) 2 Oxygen Delivery Method Nasal Cannula Weight: 313 lb Body Mass Index (BMI) 39.6 Intake & Output: Intake and Output for Last 24 Hours 08/19/22 08/20/22 08/21/22 23:59 23:59 23:59 Intake Total 115 / 115 600 / 600 Balance 115 / 115 600 / 600 Lab / Micro Data Result Diagrams: 08/21/22 06:11 08/12/22 13:01 Labs: Laboratory Results - last 24 hr 08/21/22 06:11: WBC 15.9 H, RBC 4.11 L, Hgb 12.1 L, Hct 37.9 L, MCV 92.2, MCH 29.4, MCHC 31.9 L, RDW Std Deviation 47.8 H, RDW Coeff of Santhosh 14.1, Plt Count 252, MPV 10.1, Immature Gran % (Auto) 0.400, Neut % (Auto) 90.5 H, Lymph % (Auto) 4.2 L, [place] % (Auto) 4.8, Eos % (Auto) 0.0, Baso % (Auto) 0.1, Absolute Neuts (auto) 14.4 H, Absolute Lymphs (auto) 0.67 L, Nucleated RBC % 0 Physical Exam Narrative General - A&Ox3, NAD. VSS/AF. Left upper Extremity -UltraSling in place. SILT & motor intact in radial, ulnar, musculocutaneous, axillary, and median nerve distributions. Radial, ulnar pulses 2+. Compartments soft and compressible. BCR in finger tips. Incisional dressing C/D/I. Assessment & Plan Assessment/Plan (1) Rotator cuff disorder: PLAN: POD#1 s/p left shoulder arthroscopy with rotator cuff repair, SCD, DCE, biceps tenotomy - Pain control - Medicine following for medical management - DVT PPX -restarting home Eliquis and Plavix today, SCDs, early mobilization -Anticipate discharge to home today if okay with internal medicine.
[2022-08-21 08:27] VITALS: O2SAT 92
[2022-08-21 09:00] VITALS: O2SAT 97
[2022-08-21 09:16] VITALS: BP 131/71; PULSE 83; RESP 18; TEMP 36.6; O2SAT 98
[2022-08-21] MEDS: APIXABAN 5 MG TABLET PO (09:28)
[2022-08-21] MEDS: Isosorbide Mononitrate 30 MG Tablet PO (09:29)
[2022-08-21] MEDS: Amiodarone 200 MG Tablet PO (09:29)
[2022-08-21] MEDS: Spironolactone 25 MG Tablet PO (09:29)
[2022-08-21] MEDS: Minoxidil 10 MG Tablet 5 MG PO (09:29)
[2022-08-21] MEDS: Furosemide 40 MG Tablet PO (09:30)
[2022-08-21] MEDS: Pantoprazole Sodium 40 MG Tablet PO (09:30)
[2022-08-21] MEDS: Clopidogrel Bisulfate 75 MG Tablet PO (09:30)
[2022-08-21] MEDS: Lisinopril 20 MG Tablet PO (09:30)
[2022-08-21] MEDS: amLODIPine 5 MG Tablet PO (09:30)
--- NOTE | 2022-08-21 10:09 | PCM.PN.HOSP ---
Reason for Visit Reason for Visit: Diagnoses Unspecified disorder of synovium and tendon, unspecified shoulder (08/20/22) Encounter for other preprocedural examination (08/20/22) Subjective Subjective Reports feeling better this morning, pain improved. Reports he did have pain earlier when sling was being adjusted and that made his chest feels slightly tight but it completely resolved. Reports that that is not unusual for him and has had no new symptoms. Breathing improved from yesterday after Lasix dose. No other complaints Objective Data Objective Data Vital Signs: Vital Signs Temp Pulse Resp BP Pulse Ox O2 Del Method O2 Flow Rate 97.8 F 83 18 131/71 H 98 Room Air 2 08/21/22 09:16 08/21/22 09:16 08/21/22 09:16 08/21/22 09:16 08/21/22 09:16 08/21/22 09:16 08/21/22 06:12 Oxygen Flow Rate (L/min) 2 Oxygen Delivery Method Room Air Weight: 141.974 kg Body Mass Index (BMI) 39.6 Intake & Output: Intake and Output for Last 24 Hours 08/19/22 08/20/22 08/21/22 23:59 23:59 23:59 Intake Total 115 / 115 600 / 600 Balance 115 / 115 600 / 600 Lab / Micro Data Result Diagrams: 08/21/22 06:11 08/12/22 13:01 Labs: Laboratory Results - last 24 hr 08/21/22 06:11: WBC 15.9 H, RBC 4.11 L, Hgb 12.1 L, Hct 37.9 L, MCV 92.2, MCH 29.4, MCHC 31.9 L, RDW Std Deviation 47.8 H, RDW Coeff of Santhosh 14.1, Plt Count 252, MPV 10.1, Immature Gran % (Auto) 0.400, Neut % (Auto) 90.5 H, Lymph % (Auto) 4.2 L, [place] % (Auto) 4.8, Eos % (Auto) 0.0, Baso % (Auto) 0.1, Absolute Neuts (auto) 14.4 H, Absolute Lymphs (auto) 0.67 L, Nucleated RBC % 0 Physical Exam Narrative General: Alert, oriented, no apparent distress HEENT: Atraumatic, normocephalic Eyes: Anicteric, normal conjunctiva, extraocular movements grossly intact Neck: Supple Respiratory: no wheezes or rhonchi appreciated, normal respiratory effort Cardiovascular: Irregularly irregular, not tachycardic GI: Soft, nontender Extremities: Lower extremity edema improved Musculoskeletal: Left upper extremity in sling Neuro: No overt focal neurological deficits Skin: No rashes appreciated Psych: Cooperative Assessment & Plan Assessment/Plan (1) Rotator cuff disorder: PLAN: Plan #Left rotator cuff tear -With left shoulder subacromial impingement syndrome, left acromioclavicular osteoarthritis, SLAP tear of left shoulder with biceps tendinosis -on 08/20 he had He had left shoulder subacromial decompression, arthroscopic biceps tenotomy, distal clavicle excision, and diagnostic and operative left shoulder arthroscopy with rotator cuff repair w/ Dr. Cornelius -Postop management per primary #History of untreated HIPOLITO -Reports he does not use BiPAP or CPAP because they never fit his face -We will benefit from outpatient evaluation and resumption of this -Given O2 dropped when napping in bed will place order for BiPAP nightly -We will also place order for incentive spirometry -Can consider neb treatment if any increased SOB or decrease in O2 Sat -Giving dose of lasix right now since he didn't get his AM dose. -Daily weights -08/21: Refused BiPAP overnight but O2 sats stable today and patient feeling well. Recommend outpatient sleep study. #Atrial fibrillation -Apixaban order entered with resume date tomorrow -Continue amiodarone #History of coronary artery disease -Continue statin, resume Plavix once cleared by surgery to do so #Hypertension -Resume amlodipine, Imdur, lisinopril, minoxidil -Continue furosemide and spironolactone -We will give dose of Lasix now due to SPO2 somewhat low though suspect that sleep apnea but does have trace edema in his lower extremities and said that happens when he does not take his medication #GERD -Continue PPI #DVT ppx: Eliquis restarted today DISPO: Pt doing better today, vitals stable. No active SOB or chest pain. Recommend outpt sleep study and routine follow up with PCP and his computer forensics analyst. Stable for d/c from hospitalist standpoint Xiao Medina MD Charges/Coding Visit Charges Inpatient E&M: 43626 Subs Hosp L2
--- NOTE | 2022-08-21 10:20 | CASEMGMT ---
JESUS CM in to discuss BULLOCK form with patient. RN CM explained BULLOCK form, patient voiced understanding. Pt signed form and filed in chart. Pt provided with a copy of signed BULLOCK form. Patient had no further questions or concerns at this time.
--- NOTE | 2022-08-21 10:20 | CASEMGMT ---
JESUS LANDERS Assessment: Face to Face with pt for initial transition planning/care coordination assessment. JESUS LANDERS introduced self and role at [facility], pt voices understanding and consents to assessment. Pt is A/O x4 and answers all questions appropriately at this time. Pt sitting up in chair in no distress. Care providers, pharmacy, and demographics verified/updated. Admitting Dx: Left shoulder arthroscopy RC repair PCP:Pt states he is establishing with Dr. Ferrell. He was supposed to have had an appt today. Specialists:Carolina Cornelius; dasha; oM cardio; Mo pulsallie Preferred Pharmacy: [facility] Retail Insurance: [employer], MMO Prescription Benefit: yes LNOK: Harvinder Dickerson, nephew; Reynold Dickerson, brother Living Arrangements: Pt lives in a single story home alone with 2 steps to enter at one entrance and 4 steps through the garage with a rail. Pt reports he is typically I in ADL's. His nephew plans to stay with him for a short time to assist post surgery. Transportation: Pt family is able to transport him to medical appts until he can drive again. DME/HHC/SNF: Pt has a lift chair, FWW, shower chair and toilet riser. Pt typically does not use AD. Pt denies hx of HHC or SNF stays. Pt states no concerns with going home at time of dc. He has outpt therapy set up at [facility] on 09/03/22. Pt states no further concerns/needs. CM to follow. Advised pt to ask CM if any further question/concerns/needs arise, voices understanding. Pt Goal: Home Plan: Home
--- NOTE | 2022-08-21 11:22 | DS.PCM_ITS ---
Providers Date of Admission: 08/20/22 Primary Care Physician: Whitney Primary Care Phys Consultations 08/20/22 11:44 Consult: Hospitalist Routine Consulting Provider: Cooper Ward Reason for Consult: Medical management s/p left rotator cuff repair EMERGENT Consult: No MD Notified: Yes Date Notified: 08/20/22 Time Notified: 13:23 Method of Notification: Text Reason For Visit: LEFT SHOULDER ARTHROSCOPY RC REPAIR... Diagnosis Discharge Diagnosis (1) Rotator cuff disorder: Status: Acute Code(s): M67.919 - Unspecified disorder of synovium and tendon, unspecified shoulder Plan: POD#1 s/p left shoulder arthroscopy with rotator cuff repair, SCD, DCE, biceps tenotomy - Pain control - Medicine following for medical management - DVT PPX -restarting home Eliquis and Plavix today, SCDs, early mobilization -Anticipate discharge to home today if okay with internal medicine. Medications at Discharge Home Medications amlodipine 5 mg tablet (Norvasc) 5 mg PO DAILY blood pressure 10/05/19 furosemide 40 mg tablet 40 mg PO DAILY diuretic 10/05/19 minoxidil 10 mg tablet 5 mg PO BID blood pressure 10/05/19 nitroglycerin 0.4 mg sublingual tablet 0.4 mg sublingual Q5-15M PRN cp 10/05/19 amiodarone 200 mg tablet 200 mg PO DAILY HEART 04/01/20 lisinopril 20 mg tablet 20 mg PO DAILY HTN 10/27/20 spironolactone 25 mg tablet (Aldactone) 25 mg PO DAILY diuretic 10/27/20 atorvastatin 80 mg tablet 80 mg PO QHS #30 tabs 10/31/20 clopidogrel 75 mg tablet (Plavix) 75 mg PO DAILY 09/09/21 apixaban 5 mg tablet (Eliquis) 5 mg PO BID 10/30/21 isosorbide mononitrate 30 mg tablet,extended release 24 hr 30 mg PO BID 01/07/22 pantoprazole 40 mg tablet,delayed release (Protonix) 40 mg PO QAM #90 tabs 04/01/22 oxycodone 5 mg tablet 10 mg PO Q6H PRN PRN Pain Score 6-10 7 days #42 tabs 08/21/22 Hospital Course Summary of Care Provided Minutes Spent on Discharge: 15 Hospital Course: Patient underwent uncomplicated left shoulder arthroscopy with rotator cuff repair, distal clavicle excision, subacromial decompression and biceps tenotomy on 08/20/22. Patient tolerated the procedure well without complication. He was placed in observation overnight for medical monitoring due to advanced history of coronary artery disease. He did well in the immediate postoperative period. Hospitalist consult was placed for medical management during his stay. No medical or surgical Cases were encountered throughout his stay. He was able be safely discharged to home on postoperative day #1. Physical Exam Narrative General - A&Ox3, NAD. VSS/AF. Left upper Extremity -UltraSling in place. SILT & motor intact in radial, ul mariela, musculocutaneous, axillary, and median nerve distributions. Radial, ulnar pulses 2+. Compartments soft and compressible. BCR in finger tips. Incisional dressing C/D/I. Weight / BMI Weight Weight: 313 lb Body Mass Index (BMI) 39.6 ABG / Lab / Microbiology Data Result Diagrams: 08/21/22 06:11 08/12/22 13:01 Laboratory: Laboratory Results - last 24 hr 08/21/22 06:11: WBC 15.9 H, RBC 4.11 L, Hgb 12.1 L, Hct 37.9 L, MCV 92.2, MCH 29.4, MCHC 31.9 L, RDW Std Deviation 47.8 H, RDW Coeff of Santhosh 14.1, Plt Count 252, MPV 10.1, Immature Gran % (Auto) 0.400, Neut % (Auto) 90.5 H, Lymph % (Auto) 4.2 L, Bailey % (Auto) 4.8, Eos % (Auto) 0.0, Baso % (Auto) 0.1, Absolute Neuts (auto) 14.4 H, Absolute Lymphs (auto) 0.67 L, Nucleated RBC % 0 Meaningful Use Info Meaningful Use Diagnoses (Choose all that apply): None applicable Discharge Plan Admission Admit Date/Time: 08/20/22 11:41 Primary Reason for Your Visit: Left shoulder arthoscopy Attending Provider: James Cornelius Primary Care Provider: Care Physician,No Primary Consulting Providers: Cooper Hayes ; Xiao Medina ; Cooper Ward Instructions Additional Instructions / Restrictions: Follow preprinted instructions from your surgeons office Discharge Orders/Prescriptions Prescriptions: New oxycodone 5 mg Tablet 10 mg PO Q6H PRN PRN (Reason: Pain Score 6-10) 7 Days Qty: 42 0RF Continued nitroglycerin 0.4 mg tablet, sublingual 0.4 mg SUBLINGUAL Q5-15M PRN (Reason: cp) Rx Instructions: do not exceed 3 doses per episode amlodipine [Norvasc] 5 mg tablet 5 mg PO DAILY furosemide 40 mg tablet 40 mg PO DAILY Label Comments: TAKE ONE TABLET BY MOUTH EVERY DAY minoxidil 10 mg tablet 5 mg PO BID Label Comments: TAKE ONE-HALF TABLET BY MOUTH TWICE DAILY Eliquis 5 mg tablet 5 mg PO BID pantoprazole [Protonix] 40 mg tablet,delayed release (DR/EC) 40 mg PO QAM Qty: 90 3RF amiodarone 200 MG tablet 200 mg PO DAILY lisinopril 20 mg Tablet 20 mg PO DAILY spironolactone [Aldactone] 25 mg Tablet 25 mg PO DAILY atorvastatin 80 mg Tablet 80 mg PO QHS Qty: 30 0RF clopidogrel [Plavix] 75 mg Tablet 75 mg PO DAILY isosorbide mononitrate 30 mg Tablet Extended Release 24 Hr 30 mg PO BID Referrals / Follow Up: Care Physician,No Primary [Primary Care Provider] - Disposition Disposition (needs filled in before D/C Order can be placed): Home, Self Care
[2022-08-21 14:43] VITALS: BP 117/55; PULSE 82; RESP 18; TEMP 36.6; O2SAT 95
== END 2022-08-21 18:06 | disposition home or self-care (01) ==
LOC: SDC 12:55 → MS3 12:55
PROVIDERS: Anesthesiology; Admitting Provider Student in an Organized Health Care Education/Training Program; Referring Provider Student in an Organized Health Care Education/Training Program; Visit Provider Student in an Organized Health Care Education/Training Program
PROC: (CPT 29827; principal; 2022-08-20 10:20)
DX: M19.012 Primary osteoarthritis, left shoulder (principal); M06.9 Rheumatoid arthritis, unspecified; J44.9 Chronic obstructive pulmonary disease, unspecified; I48.91 Unspecified atrial fibrillation; S43.432A Superior glenoid labrum lesion of left shoulder, initial encounter; M75.42 Impingement syndrome of left shoulder; I25.10 Atherosclerotic heart disease of native coronary artery without angina pectoris; R60.0 Localized edema; M75.102 Unspecified rotator cuff tear or rupture of left shoulder, not specified as traumatic; X58.XXXA Exposure to other specified factors, initial encounter; I25.2 Old myocardial infarction; I10 Essential (primary) hypertension; Z86.718 Personal history of other venous thrombosis and embolism; K21.9 Gastro-esophageal reflux disease without esophagitis; Z79.02 Long term (current) use of antithrombotics/antiplatelets; Z79.899 Other long term (current) drug therapy; Z79.01 Long term (current) use of anticoagulants; E66.9 Obesity, unspecified; Z68.38 Body mass index [BMI] 38.0-38.9, adult; G47.33 Obstructive sleep apnea (adult) (pediatric); E78.00 Pure hypercholesterolemia, unspecified
CPT/HCPCS: 29827; 29826; 29824; 36415; 71046; 80048; 80076; 85025; 85610; 85730; 93005; 94668; 94762; 99221; 99252; J7120; G0378; G0463; J2405

== ENCOUNTER 2022-09-22 11:57 | Outpatient (CLI) | payer MEDICARE, OTHER, SELFPAY ==
[2022-09-22 15:35] LABS: Absolute Lymphocyte Count 1.24 X10^3/uL (0.83-4.51); Absolute Neutrophil Count 5.8 X10^3/uL (2.0-7.7); Basophil# 0.03 X10^3/uL; Basophil% 0.4 % (0-1); Eosinophil# 0.13 X10^3/uL; Eosinophils% 1.7 % (0-5); Hematocrit 36.9 % (40-54); Hemoglobin 11.8 g/dL (13.0-16.5); Lymphocyte # 1.24 X10^3/ul (0.83-4.51); Lymphocyte % 16.1 % (19-41); Mean Corpuscular Hgb 29.3 pg (27.0-32.0); Mean Corpuscular Volume 91.6 fL (80-94); Mean Platelet Vol. 9.9 fl (6.2-12.0); Monocyte# 0.46 X10^3/uL; NRBC Flagged by Analyzer 0 % (0-5); Neutrophil # 5.83 X10^3/uL (2.7-7.7); Neutrophil % 75.5 % (47-70); Platelet Count 226 K/mm3 (150-450); RBC Distribution Width CV 14.3 % (11.6-14.6); RBC Distribution Width SD 47.9 fl (35.1-43.9); Red Blood Count 4.03 M/mm3 (4.6-6.2); White Blood Count 7.7 K/mm3 (4.4-11.0)
[2022-09-22 16:08] LABS: Vitamin B12 248 pg/mL (211-911); Vitamin D,25 Hydroxy 25.5 ng/mL
[2022-09-22 16:17] LABS: AST(SGOT) 21 U/L (15-37); Alanine Aminotransfer ALT/SGPT 39 U/L (16-61); Albumin, Serum 3.6 g/dL (3.2-5.0); Alkaline Phosphatase 111 U/L (45-117); Anion Gap 6 (5-15); BUN 18 mg/dL (7-18); BUN/Creat Ratio 14.8 RATIO (10-20); Calcium,Total 8.7 mg/dL (8.5-10.1); Chloride 108 mmol/L (98-107); Cholesterol 133 mg/dL (200); Creatinine, Serum 1.22 mg/dL (0.70-1.30); EST Glomerular Filtration Rate 63 mL/min (>60); Est Glom Filt Rate - Afr Amer 76 mL/min (>60); Globulin 3.5 g/dL (2.2-4.2); Glucose 103 mg/dL (74-106); High Density Lipoprotein 51 mg/dL; Magnesium 1.9 mg/dL (1.6-2.6); Potassium 3.6 mmol/L (3.5-5.1); Protein, Total 7.1 g/dL (6.4-8.2); Sodium Level 142 mmol/L (136-145); T4 Free Direct 1.04 ng/dL (0.76-1.46); Thyroid Stim Hormone (TSH) 1.48 uIU/mL (0.358-3.74); Triglycerides 121 mg/dL; Very Low Density Lipoprotein 24 mg/dL (5-40)
[2022-09-23 11:14] LABS: Iron 57 ug/dL (65-175); Iron Binding Capacity,Total 263 ug/dL (250-450)
[2022-09-23 11:30] LABS: Hemoglobin A1c 5.2 % (3.8-5.6)
[2022-09-23 14:41] LABS: Ferritin 222 ng/mL (26-388)
== END 2022-09-22 23:59 | disposition home or self-care (01) ==
LOC: MFPLAB 11:59
PROVIDERS: Visit Provider Family Medicine
DX: I25.10 Atherosclerotic heart disease of native coronary artery without angina pectoris (principal); I48.91 Unspecified atrial fibrillation; I10 Essential (primary) hypertension; D64.9 Anemia, unspecified; E55.9 Vitamin D deficiency, unspecified; R53.83 Other fatigue; R73.09 Other abnormal glucose
CPT/HCPCS: 36415; 80053; 80061; 82306; 82607; 82728; 83036; 83540; 83550; 83735; 84439; 84443; 84466; 85025

== ENCOUNTER → 2022-09-25 | Outpatient (CLI) | payer MEDICARE, OTHER, SELFPAY ==
--- NOTE | 2022-09-25 13:42 | US_ITS ---
INDICATION: NODULE EXAMINATION: Ultrasound US Thyroid (eg thyroid, parathyroid, parotid) TECHNIQUE: Salomon scale and color doppler imaging was performed of the thyroid gland. COMPARISON: None. FINDINGS: RIGHT THYROID LOBE: 5.2 x 2.5 x 2.1 cm. Heterogenous echotexture with normal vascularity. [Single nodule midpole which is solid with regular margins, isoechoic without internal echogenic foci. TIRADS level 3 or mildly suspicious. LEFT THYROID LOBE: 4.7 x 2.3 x 2.0 cm. Heterogenous echotexture with normal vascularity. [Single solid nodule midpole with regular margins, isoechoic without internal echogenic foci. TIRADS level 3 or mildly suspicious. ISTHMUS: 11 mm. No thyroid nodules are present. US/Thyroid IMPRESSION: Bilateral mildly suspicious thyroid nodules, largest 1.5 cm on the left. Recommend follow-up in one, 3 and 5 years. Electronically Signed: Joby Yarbrough MD at 20:23 EDT ,
== END | disposition home or self-care (01) ==
LOC: US 13:41
PROVIDERS: Referring Provider Family Medicine; Visit Provider Family Medicine
DX: E04.1 Nontoxic single thyroid nodule (principal)
CPT/HCPCS: 76536

== ENCOUNTER → 2022-09-29 | Outpatient (CLI) | payer MEDICARE, OTHER, SELFPAY ==
[2022-09-29 10:29] LABS: Absolute Lymphocyte Count 1.29 X10^3/uL (0.83-4.51); Absolute Neutrophil Count 5.4 X10^3/uL (2.0-7.7); Basophil# 0.04 X10^3/uL; Basophil% 0.5 % (0-1); Eosinophil# 0.09 X10^3/uL; Eosinophils% 1.2 % (0-5); Hematocrit 37.5 % (40-54); Hemoglobin 12.1 g/dL (13.0-16.5); Lymphocyte # 1.29 X10^3/ul (0.83-4.51); Lymphocyte % 17.6 % (19-41); Mean Corp Hgb Conc 32.3 g/dL (32-36); Mean Corpuscular Hgb 29.6 pg (27.0-32.0); Mean Corpuscular Volume 91.7 fL (80-94); Mean Platelet Vol. 9.5 fl (6.2-12.0); Monocyte# 0.47 X10^3/uL; Monocyte% 6.4 % (0-10); NRBC Flagged by Analyzer 0 % (0-5); Neutrophil # 5.43 X10^3/uL (2.7-7.7); Neutrophil % 73.9 % (47-70); Platelet Count 216 K/mm3 (150-450); RBC Distribution Width CV 14.1 % (11.6-14.6); RBC Distribution Width SD 47.3 fl (35.1-43.9); Red Blood Count 4.09 M/mm3 (4.6-6.2); White Blood Count 7.4 K/mm3 (4.4-11.0)
[2022-09-29 10:55] LABS: BNP,B-Type NATRIURETIC PEPTIDE 17.5 pg/mL (0-100)
[2022-09-29 11:02] LABS: AST(SGOT) 13 U/L (15-37); Alanine Aminotransfer ALT/SGPT 39 U/L (16-61); Albumin, Serum 3.6 g/dL (3.2-5.0); Alkaline Phosphatase 111 U/L (45-117); Anion Gap 5 (5-15); BUN 21 mg/dL (7-18); BUN/Creat Ratio 17.1 RATIO (10-20); Bilirubin, Direct 0.25 mg/dL (0.00-0.30); Calcium,Total 8.7 mg/dL (8.5-10.1); Chloride 111 mmol/L (98-107); Creatinine, Serum 1.23 mg/dL (0.70-1.30); EST Glomerular Filtration Rate 62 mL/min (>60); Est Glom Filt Rate - Afr Amer 76 mL/min (>60); Globulin 3.4 g/dL (2.2-4.2); Glucose 107 mg/dL (74-106); Potassium 3.9 mmol/L (3.5-5.1); Sodium Level 143 mmol/L (136-145)
== END | disposition home or self-care (01) ==
DX: I48.0 Paroxysmal atrial fibrillation (principal); R60.0 Localized edema; R06.02 Shortness of breath
CPT/HCPCS: 36415; 80048; 80076; 83880; 85025

== ENCOUNTER → 2022-10-06 | Outpatient (CLI) | payer MEDICARE, OTHER, SELFPAY ==
[2022-10-06 11:32] LABS: D-Dimer Quantitative (DVT/PE) 0.37 FEU/ug/m (0.27-0.49)
[2022-10-06 12:06] LABS: Anion Gap 8 (5-15); BUN 25 mg/dL (7-18); BUN/Creat Ratio 17.6 RATIO (10-20); Calcium,Total 9.2 mg/dL (8.5-10.1); Chloride 105 mmol/L (98-107); Creatinine, Serum 1.42 mg/dL (0.70-1.30); EST Glomerular Filtration Rate 53 mL/min (>60); Est Glom Filt Rate - Afr Amer 64 mL/min (>60); Glucose 139 mg/dL (74-106); Potassium 4.2 mmol/L (3.5-5.1); Sodium Level 140 mmol/L (136-145)
[2022-10-06 14:10] LABS: BNP,B-Type NATRIURETIC PEPTIDE 14.7 pg/mL (0-100)
== END | disposition home or self-care (01) ==
LOC: LAB 11:03
DX: R60.0 Localized edema (principal); J44.9 Chronic obstructive pulmonary disease, unspecified; I48.0 Paroxysmal atrial fibrillation; R06.09 Other forms of dyspnea; I25.10 Atherosclerotic heart disease of native coronary artery without angina pectoris; I10 Essential (primary) hypertension
CPT/HCPCS: 36415; 80048; 83880; 85379

== ENCOUNTER → 2022-10-22 | Outpatient (CLI) | payer MEDICARE, OTHER, SELFPAY ==
[2022-10-22 09:03] LABS: Anion Gap 8 (5-15); BUN 53 mg/dL (7-18); BUN/Creat Ratio 30.3 RATIO (10-20); Chloride 108 mmol/L (98-107); Creatinine, Serum 1.75 mg/dL (0.70-1.30); EST Glomerular Filtration Rate 42 mL/min (>60); Est Glom Filt Rate - Afr Amer 50 mL/min (>60); Glucose 168 mg/dL (74-106); Sodium Level 142 mmol/L (136-145)
== END | disposition home or self-care (01) ==
LOC: LAB 07:59
PROVIDERS: PCP Family Medicine
DX: R06.09 Other forms of dyspnea (principal); I10 Essential (primary) hypertension
CPT/HCPCS: 36415; 80048

== ENCOUNTER → 2022-10-27 | Outpatient (CLI) | payer MEDICARE, OTHER, SELFPAY ==
[2022-10-27 13:55] LABS: Anion Gap 3 (5-15); BUN 32 mg/dL (7-18); BUN/Creat Ratio 21.1 RATIO (10-20); Calcium,Total 8.8 mg/dL (8.5-10.1); Chloride 110 mmol/L (98-107); Creatinine, Serum 1.52 mg/dL (0.70-1.30); EST Glomerular Filtration Rate 49 mL/min (>60); Est Glom Filt Rate - Afr Amer 59 mL/min (>60); Glucose 108 mg/dL (74-106); Sodium Level 140 mmol/L (136-145)
== END | disposition home or self-care (01) ==
LOC: LAB 12:56
PROVIDERS: PCP Family Medicine
DX: R60.0 Localized edema (principal); T50.2X Poisoning by, adverse effect of and underdosing of carbonic-anhydrase inhibitors, benzothiadiazides and other diuretics
CPT/HCPCS: 36415; 80048

== ENCOUNTER → 2022-11-25 | Outpatient (CLI) | payer MEDICARE, OTHER, SELFPAY ==
[2022-11-25 09:50] LABS: Absolute Lymphocyte Count 1.49 X10^3/uL (0.83-4.51); Absolute Neutrophil Count 5.6 X10^3/uL (2.0-7.7); Basophil# 0.05 X10^3/uL; Basophil% 0.6 % (0-1); Eosinophil# 0.08 X10^3/uL; Hematocrit 39.4 % (40-54); Hemoglobin 13.4 g/dL (13.0-16.5); Lymphocyte # 1.49 X10^3/ul (0.83-4.51); Mean Corpuscular Hgb 30.3 pg (27.0-32.0); Mean Corpuscular Volume 89.1 fL (80-94); Mean Platelet Vol. 9.6 fl (6.2-12.0); Monocyte# 0.53 X10^3/uL; Monocyte% 6.8 % (0-10); NRBC Flagged by Analyzer 0 % (0-5); Neutrophil # 5.61 X10^3/uL (2.7-7.7); Neutrophil % 71.7 % (47-70); Platelet Count 242 K/mm3 (150-450); RBC Distribution Width CV 13.5 % (11.6-14.6); RBC Distribution Width SD 44.2 fl (35.1-43.9); Red Blood Count 4.42 M/mm3 (4.6-6.2); White Blood Count 7.8 K/mm3 (4.4-11.0)
[2022-11-25 10:23] LABS: Vitamin D,25 Hydroxy 27.8 ng/mL
[2022-11-25 10:27] LABS: ALB/GLOB Ratio 0.9 RATIO (0.9-2.4); AST(SGOT) 15 U/L (15-37); Alanine Aminotransfer ALT/SGPT 38 U/L (16-61); Albumin, Serum 3.7 g/dL (3.2-5.0); Alkaline Phosphatase 104 U/L (45-117); Anion Gap 5 (5-15); BUN 27 mg/dL (7-18); BUN/Creat Ratio 18.4 RATIO (10-20); Calcium,Total 9.1 mg/dL (8.5-10.1); Chloride 108 mmol/L (98-107); Creatinine, Serum 1.47 mg/dL (0.70-1.30); EST Glomerular Filtration Rate 51 mL/min (>60); Est Glom Filt Rate - Afr Amer 61 mL/min (>60); Globulin 4.1 g/dL (2.2-4.2); Glucose 123 mg/dL (74-106); Potassium 4.4 mmol/L (3.5-5.1); Protein, Total 7.8 g/dL (6.4-8.2); Sodium Level 138 mmol/L (136-145)
== END | disposition home or self-care (01) ==
LOC: MFPLAB 08:46
PROVIDERS: PCP Family Medicine; Visit Provider Family Medicine
DX: R19.7 Diarrhea, unspecified (principal); R25.2 Cramp and spasm; E55.9 Vitamin D deficiency, unspecified; I10 Essential (primary) hypertension
CPT/HCPCS: 36415; 80053; 82306; 84443; 85025

== ENCOUNTER 2022-12-05 22:41 | Emergency (ER) | payer MEDICARE, OTHER, SELFPAY ==
[2022-12-05 22:45] VITALS: BP 146/77; PULSE 79; RESP 14; TEMP 36.6; O2SAT 96; BMI 41.0
--- NOTE | 2022-12-05 22:45 | ED.VIS.CHEST ---
HPI History of Present Illness Chief Complaint: Chest Pain [facility] Medical History Anxiety Atrial fibrillation CAD (coronary artery disease) Cardiology follow-up encounter Chest pain Cholelithiasis with chronic cholecystitis COPD (chronic obstructive pulmonary disease) COPD (chronic obstructive pulmonary disease) Coronary atherosclerosis of [place] coronary vessel Depression Difficulty swallowing Dysphagia Epidermal inclusion cyst Esophageal reflux Excessive bleeding Gastric reflux High cholesterol History of atrial fibrillation History of echocardiogram History of edema History of heart attack history of ischemic stroke History of stress test HTN (hypertension) Hyperlipidemia Hypertension Left rotator cuff tear Leg cramps Non-smoker NSVT (nonsustained ventricular tachycardia) Obstructive sleep apnea syndrome PONV (postoperative nausea and vomiting) Rheumatoid arthritis Screening for malignant neoplasm of intestine Sensorineural hearing loss, 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 Shortness of breath on exertion Sleep apnea Wears glasses Home Medications amlodipine 5 mg tablet (Norvasc) 5 mg PO DAILY blood pressure 10/05/19 [History Last Taken 08/20/22] minoxidil 10 mg tablet 5 mg PO BID blood pressure 10/05/19 [History Last Taken 08/20/22] nitroglycerin 0.4 mg sublingual tablet 0.4 mg sublingual Q5-15M PRN cp 10/05/19 [History Last Taken Unknown] amiodarone 200 mg tablet 200 mg PO DAILY HEART 04/01/20 [History Last Taken 08/20/22] lisinopril 20 mg tablet 20 mg PO DAILY HTN 10/27/20 [History Last Taken 08/20/22] spironolactone 25 mg tablet (Aldactone) 25 mg PO DAILY diuretic 10/27/20 [History Last Taken 10/27/20] atorvastatin 80 mg tablet 80 mg PO QHS #30 tabs 10/31/20 [Rx Last Taken Unknown] clopidogrel 75 mg tablet (Plavix) 75 mg PO DAILY 09/09/21 [History Last Taken 08/15/22] apixaban 5 mg tablet (Eliquis) 5 mg PO BID 10/30/21 [History Last Taken 08/17/22] isosorbide mononitrate 30 mg tablet,extended release 24 hr 30 mg PO BID 01/07/22 [History Last Taken 08/20/22] pantoprazole 40 mg tablet,delayed release (Protonix) 40 mg PO QAM #90 tabs 04/01/22 [Rx Last Taken 08/20/22] oxycodone 5 mg tablet 10 mg (2 x 5 mg) PO Q6H PRN PRN Pain Score 6-10 7 days #42 tabs 08/21/22 [Rx Last Taken Unknown] Allergy/AdvReac Type Severity Reaction Status Date / Time Penicillins Allergy Hives Verified 12/05/22 22:47 Family History (Updated 12/06/22 @ 02:[address] Henrietta Quinonez MD) Sister Cancer ovarian Brother Diabetes Mother Heart disease Father Prostate cancer Surgical History History of cardiac catheterization History of colonoscopy (~2014) History of coronary angioplasty History of esophagogastroduodenoscopy (EGD) (~2014) History of heart artery stent History of inguinal hernia repair History of knee joint replacement History of left shoulder replacement History of total left hip arthroplasty History of total right hip arthroplasty Hx of cholecystectomy S/P PTCA (percutaneous transluminal coronary angioplasty) Social History (Updated 12/06/22 @ 02:[address] Henrietta Quinonez MD) household members: none Smoking Status: Never smoker alcohol intake: never substance use type: does not use EXAM Physical Exam Const Vital Signs: 12/05/22 22:45 12/05/22 22:50 12/05/22 23:03 Temperature 97.9 F Temperature Source Oral Pulse Rate 79 Respiratory Rate 14 Respiratory Effort Normal Non-Labored Blood Pressure 146/77 H Blood Pressure Mean 100 Pulse Ox 96 96 Oxygen Delivery Method Room Air Room Air 12/05/22 23:11 12/06/22 00:35 12/06/22 01:08 Temperature 97.8 F Temperature Source Oral Pulse Rate 68 75 Respiratory Rate 18 16 Respiratory Effort Blood Pressure 146/84 H 131/67 H 142/91 H Blood Pressure Mean 88 108 Pulse Ox 96 97 Oxygen Delivery Method Room Air Room Air 12/06/22 02:14 12/06/22 03:00 Temperature Temperature Source Pulse Rate 70 69 Respiratory Rate 16 19 H Respiratory Effort Blood Pressure 148/72 H 135/74 H Blood Pressure Mean 97 94 Pulse Ox 97 98 Oxygen Delivery Method Room Air Room Air Heart Score History: Highly Suspicious ECG: Normal Age: >/= 65 years Risk Factors: >/= 3 Risk Factors or History of CAD Score: 6 MDM MDM MDM Narrative Medical decision making narrative: HISTORY OF PRESENT ILLNESS: 67-year-old male here with chest pain associated shortness of breath that started tonight at approximately 10 PM proxy 1 hour prior to arrival. States chest pain is worse with exertion associated shortness of breath dizziness and nausea. States the pain radiates to his back and his neck. Denies any focal numbness or weakness. Denies any recent nausea or vomiting. Does note a cough that is nonproductive. He notes is also associated with shortness of breath. The patient denies recent surgery in the last 4 weeks or immobilization in the last 3 days, denies previous diagnosis of DVT or PE, hemoptysis, unilateral leg swelling or malignancy with treatment the last 6 months. No estrogen use noted. Patient denies sudden onset of pain, no tearing sensation, no migratory symptoms, no new numbness, weakness or loss of sensation. Patient denies family history or personal history of Marfan syndrome or Martina-Danlos REVIEW OF SYSTEMS: Pertinent positives: Chest pain, shortness of breath, dizziness and nausea Pertinent negatives: Syncope, focal weakness or numbness PHYSICAL EXAM: Nursing triage notes reviewed, Vital signs reviewed Constitutional: please see mdm HENT: MMM Eyes: Pupils equal round and reactive to light, Extraocular muscles intact Neck: No stridor, no JVD, full neck ROM Lungs: Clear to auscultation, No wheezing or rales. No increased work of breathing, no conversational dyspnea, no accessory muscle use, no nasal flaring. No respiratory distress noted Heart: Regular rate and rhythm, No murmurs, No rubs and No gallops, 2+ distal pulses (radial, femoral, posterior tibial) in all extremities Abdomen: Soft, there is no tenderness, rigidity, rebound or guarding, no obvious peritoneal signs, no palpable pulsatile abdominal masses, no auscultated abdominal bruit : No CVAT Extremities: No edema Neuro: No focal neurological deficits, cranial nerves II through XII intact, 5/5 strength in all extremities. Intact sensation to light touch in all extremities, 2+ reflexes bilateral patella tendons. Normal gait. No ataxia. Skin: No rash or lesions noted MEDICAL DECISION MAKING: Chief Complaint: Chest pain External records reviewed: Echocardiogram 2020 shows an ejection fraction of 60% with no regional wall motion abnormality Factors affecting care: CAD, COPD atrial fibrillation, hypertension, hyperlipidemia, GERD on Eliquis, amiodarone Plavix Social determinants of health: Never smoker History obtained from others: The patient's family Consults: emergency operator Dr. Santacruz, Internal medicine Dr. Quinonez, internal medicine [facility] Dr. Oneil ALL IMAGES (IF OBTAINED) HAVE BEEN PERSONALLY REVIEWED AND INTERPRETED BY MYSELF. EKG shows normal sinus rhythm, normal axis, slightly prolonged QT, no STEMI Initial troponin elevated concerning for myocardial ischemia, delta troponin continues to uptrend more concerning for myocardial ischemia the patient is chest pain-free CBC with leukocytosis suggestive of systemic inflammation, mild anemia but no thrombocytopenia noted BNP within normal limits Magnesium within normal limits BMP with baseline CKD, no significant electrolyte abnormalities noted MDM Narrative: Patient was hemodynamically stable, afebrile, nontoxic-appearing. Exam I considered the following differential diagnosis: ACS, arrhythmia, anemia, electrolyte abnormalities, PE, dissection I obtained a broad lab and imaging work-up to further elucidate the etiology of the patient's complaint. EKG showed no evidence of STEMI. Troponin was initially elevated concerning for NSTEMI. There is no sign of significant anemia, electrolyte abnormality. While I considered dissection PE I thought these diagnoses are less likely given the patient's clinical history and exam. There is low risk Wells score to suggest pulmonary embolism. In addition to this patient's been compliant with Eliquis was makes PE less likely there is no focal pulse deficits, focal neurodeficits to suggest aortic dissection. Patient's heart score is 7 with a concerning story, advanced age and multiple medical comorbidities. He will require admission for cardiology consultation and confirmatory testing. Offer admission here at [facility] however he refused. He stated he like be admitted to [facility]. I communicated with the veterinary dentist Dr. Santacruz at [facility] who agreed the patient can be admitted to telemetry floor. I discussed the case with Dr. Oneil. The patient and/or family, caregivers express understanding. The patient and/or family, caregivers agrees with the plan. Total critical care time today provided was at least 0 minutes. This excludes separately billable procedures. Critical care time (if documented) is secondary to the patient having high probability of clinically significant/life threatening deterioration in the patient's condition which required my urgent intervention. Shared decision making: I will have a discussion with the patient and or visitors regarding risk/benefits of further testing or admission. They will be made aware of of the risk/benefits inherent in this decision they will be given the opportunity to voice understanding. Lab Data Attestation: I reviewed the patient's lab results. Labs: Laboratory Results - last 24 hr 12/05/22 12/06/22 23:00 01:15 WBC 15.5 H RBC 4.21 L Hgb 12.5 L Hct 38.6 L MCV 91.7 MCH 29.7 MCHC 32.4 RDW Std Deviation 47.4 H RDW Coeff of Santhosh 14.3 Plt Count 263 MPV 9.7 Immature Gran % (Auto) 1.100 H Neut % (Auto) 92.5 H Lymph % (Auto) 3.8 L [place] % (Auto) 2.4 Eos % (Auto) 0.0 Baso % (Auto) 0.2 Absolute Neuts (auto) 14.4 H Absolute Lymphs (auto) 0.59 L Nucleated RBC % 0 Differential Comment SCANNED PT 13.0 INR 1.0 APTT 24.1 Sodium 137 Potassium 4.9 Chloride 109 H Carbon Dioxide 23.0 Anion Gap 5 BUN 27 H Creatinine 1.56 H Estim Creat Clear Calc 53.42 Est GFR (MDRD) Af Amer 57 L Est GFR (MDRD) Non-Af 47 L BUN/Creatinine Ratio 17.3 Glucose 199 H Calcium 9.1 Magnesium 2.2 Troponin I High Sens 174 H* 175 H* B-Natriuretic Peptide 14.5 Radiography Chest X-Ray - ED: Read by ED Physician Diagnostic Testing: Clinical Impression(s) from Imaging Studies Chest X-Ray 12/05/22 23:06 IMPRESSION: Normal x-ray examination of the chest. Electronically Signed: Javy Nelson MD at 23:27 EDT , Chest x-ray read and interpreted by myself shows no evidence of CHF, there is mildly increased cardiomegaly from prior study, no pneumonia or pneumothorax noted Discharge Plan Triage Chief Complaint: Chest Pain ED Provider: Kraig Bautista Dx/Rx/DC Orders Clinical Impression: History of CAD (coronary artery disease), Chest pain Prescriptions: No Action nitroglycerin 0.4 mg tablet, sublingual 0.4 mg SUBLINGUAL Q5-15M PRN (Reason: cp) Rx Instructions: do not exceed 3 doses per episode amlodipine [Norvasc] 5 mg tablet 5 mg PO DAILY minoxidil 10 mg tablet 5 mg PO BID Patient Comments: TAKE ONE-HALF TABLET BY MOUTH TWICE DAILY Eliquis 5 mg tablet 5 mg PO BID pantoprazole [Protonix] 40 mg tablet,delayed release (DR/EC) 40 mg PO QAM Qty: 90 3RF amiodarone 200 MG tablet 200 mg PO DAILY lisinopril 20 mg Tablet 20 mg PO DAILY spironolactone [Aldactone] 25 mg Tablet 25 mg PO DAILY atorvastatin 80 mg Tablet 80 mg PO QHS Qty: 30 0RF clopidogrel [Plavix] 75 mg Tablet 75 mg PO DAILY isosorbide mononitrate 30 mg Tablet Extended Release 24 Hr 30 mg PO BID oxycodone 5 mg Tablet 10 mg PO Q6H PRN PRN (Reason: Pain Score 6-10) 7 Days Qty: 42 0RF Primary Care Provider: Finn Ferrell Referrals: Finn Ferrell MD [Primary Care Provider] - Disposition Disposition: Acute Care Hospital Discharge Location: [facility]
[2022-12-05 23:03] VITALS: O2SAT 96
--- NOTE | 2022-12-05 23:06 | RAD_ITS ---
STUDY: X-RAY CHEST REASON FOR EXAM: Male, 67 years old. chest pain TECHNIQUE: Single AP portable view of the chest. COMPARISON: 08/12/2022 FINDINGS: The lungs are clear and expanded. There is no demonstrated pleural abnormality. Normal size heart. Normal mediastinum and hermilo. Normal visualized pulmonary arteries. Normal visualized aortic arch and descending thoracic aorta. Normal visualized thoracic spine. Normal visualized ribs, clavicles, and shoulders. There is no demonstrated abnormality of the visualized soft tissue structures of the upper abdomen. RAD/Chest 1 View (Portable) IMPRESSION: Normal x-ray examination of the chest. Electronically Signed: Javy Nelson MD at 23:27 EDT ,
[2022-12-05] MEDS: Aspirin 81 MG TAB.CHEW 324 MG PO (23:09)
[2022-12-05 23:11] VITALS: BP 146/84
[2022-12-05] MEDS: Nitroglycerin SL (ED/IMG/CATH) 0.4 MG TABLET SL (23:11)
[2022-12-05 23:34] LABS: Absolute Lymphocyte Count 0.59 X10^3/uL (0.83-4.51); Absolute Neutrophil Count 14.4 X10^3/uL (2.0-7.7); Basophil# 0.03 X10^3/uL; Basophil% 0.2 % (0-1); Hematocrit 38.6 % (40-54); Hemoglobin 12.5 g/dL (13.0-16.5); Lymphocyte # 0.59 X10^3/ul (0.83-4.51); Lymphocyte % 3.8 % (19-41); Mean Corp Hgb Conc 32.4 g/dL (32-36); Mean Corpuscular Hgb 29.7 pg (27.0-32.0); Mean Corpuscular Volume 91.7 fL (80-94); Mean Platelet Vol. 9.7 fl (6.2-12.0); Monocyte# 0.37 X10^3/uL; Monocyte% 2.4 % (0-10); NRBC Flagged by Analyzer 0 % (0-5); Neutrophil # 14.37 X10^3/uL (2.7-7.7); Neutrophil % 92.5 % (47-70); POSITIVE DIFFERENTIAL YES; Platelet Count 263 K/mm3 (150-450); RBC Distribution Width CV 14.3 % (11.6-14.6); RBC Distribution Width SD 47.4 fl (35.1-43.9); Red Blood Count 4.21 M/mm3 (4.6-6.2); White Blood Count 15.5 K/mm3 (4.4-11.0)
[2022-12-05 23:36] LABS: Differential Indicated SCAN CRITERIA MET
[2022-12-05 23:41] LABS: Anion Gap 5 (5-15); BUN 27 mg/dL (7-18); BUN/Creat Ratio 17.3 RATIO (10-20); Calcium,Total 9.1 mg/dL (8.5-10.1); Chloride 109 mmol/L (98-107); Creatinine, Serum 1.56 mg/dL (0.70-1.30); EST Glomerular Filtration Rate 47 mL/min (>60); Est Glom Filt Rate - Afr Amer 57 mL/min (>60); Estimated Creatinine Clearance 53.42 ml/min; Glucose 199 mg/dL (74-106); Potassium 4.9 mmol/L (3.5-5.1); Sodium Level 137 mmol/L (136-145); Troponin-I HS (w/2H Reflex) 174 pg/mL (3.0-78.0)
[2022-12-05 23:58] LABS: BNP,B-Type NATRIURETIC PEPTIDE 14.5 pg/mL (0-100)
[2022-12-06] VITALS (9 sets, daily range): BP systolic 131–168; BP diastolic 67–91; PULSE 68–82; RESP 16–22; TEMP 36.6–36.7; O2SAT 94–99
[2022-12-06 00:17] LABS: Differential Comment SCANNED
--- NOTE | 2022-12-06 00:38 | PCM.HP.STD ---
HPI - General General Date of Admission: 12/06/22 Date of Service: 12/06/22 Chief Complaint: Chest pain HPI Narrative The patient is a 67 y/o M w/ PMHx: Chronic normocytic anemia, Morbid Obesity, Chronic dyphagia following with Dr. Vera, MANAV, CAD s/p PCI, COPD, Depression and Anxiety, GERD, HIPOLITO, Rheumatoid arthritis who presents to the [facility] ED on 12/06/22 with history of onset of chest discomfort with associated dyspnea at approximately 10 PM on evening prior to ED presentation noted to be worse with exertion with associated nausea without emesis as well as dizziness with discomfort midsternal radiating towards back as well as his neck primarily on the left side as well as his left upper extremity prompting eventual ED evaluation. He does report a history of a nonproductive cough that has been ongoing. He notes that he did have complete resolution of his discomfort following sublingual nitroglycerin administration. He had a recent outpatient cardiology follow-up with no issues at that time. Work-up in the ED included T97.9, heart rate 79, BP 146/77, respiratory rate 14, 96% on room air, CBC with WBC 15.5, hemoglobin 12.5, MCV 91.7, platelet 263 with left shift and lymphopenia, BMP with chloride 109, BUN/creatinine 27/1.56, glucose 199, initial troponin 174, BNP 14.5, chest x-ray with no acute cardiopulmonary finding, EKG EKG with sinus rhythm with no acute evidence of ischemia. In the ED patient ministered full-strength aspirin therapy and sublingual nitroglycerin. [facility] Medical History Anxiety Atrial fibrillation CAD (coronary artery disease) Cardiology follow-up encounter Chest pain Cholelithiasis with chronic cholecystitis COPD (chronic obstructive pulmonary disease) COPD (chronic obstructive pulmonary disease) Coronary atherosclerosis of [place] coronary vessel Depression Difficulty swallowing Dysphagia Epidermal inclusion cyst Esophageal reflux Excessive bleeding Gastric reflux High cholesterol History of atrial fibrillation History of echocardiogram History of edema History of heart attack history of ischemic stroke History of stress test HTN (hypertension) Hyperlipidemia Hypertension Left rotator cuff tear Leg cramps Non-smoker NSVT (nonsustained ventricular tachycardia) Obstructive sleep apnea syndrome PONV (postoperative nausea and vomiting) Rheumatoid arthritis Screening for malignant neoplasm of intestine Sensorineural hearing loss, 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 Shortness of breath on exertion Sleep apnea Wears glasses Home Medications amlodipine 5 mg tablet (Norvasc) 5 mg PO DAILY blood pressure 10/05/19 [History Last Taken 08/20/22] minoxidil 10 mg tablet 5 mg PO BID blood pressure 10/05/19 [History Last Taken 08/20/22] nitroglycerin 0.4 mg sublingual tablet 0.4 mg sublingual Q5-15M PRN cp 10/05/19 [History Last Taken Unknown] amiodarone 200 mg tablet 200 mg PO DAILY HEART 04/01/20 [History Last Taken 08/20/22] lisinopril 20 mg tablet 20 mg PO DAILY HTN 10/27/20 [History Last Taken 08/20/22] spironolactone 25 mg tablet (Aldactone) 25 mg PO DAILY diuretic 10/27/20 [History Last Taken 10/27/20] atorvastatin 80 mg tablet 80 mg PO QHS #30 tabs 10/31/20 [Rx Last Taken Unknown] clopidogrel 75 mg tablet (Plavix) 75 mg PO DAILY 09/09/21 [History Last Taken 08/15/22] apixaban 5 mg tablet (Eliquis) 5 mg PO BID 10/30/21 [History Last Taken 08/17/22] isosorbide mononitrate 30 mg tablet,extended release 24 hr 30 mg PO BID 01/07/22 [History Last Taken 08/20/22] pantoprazole 40 mg tablet,delayed release (Protonix) 40 mg PO QAM #90 tabs 04/01/22 [Rx Last Taken 08/20/22] oxycodone 5 mg tablet 10 mg (2 x 5 mg) PO Q6H PRN PRN Pain Score 6-10 7 days #42 tabs 08/21/22 [Rx Last Taken Unknown] Allergy/AdvReac Type Severity Reaction Status Date / Time Penicillins Allergy Hives Verified 12/05/22 22:47 Family History (Updated 12/06/22 @ 02:[address] Henrietta Quinonez MD) Sister Cancer ovarian Brother Diabetes Mother Heart disease Father Prostate cancer Surgical History History of cardiac catheterization History of colonoscopy (~2014) History of coronary angioplasty History of esophagogastroduodenoscopy (EGD) (~2014) History of heart artery stent History of inguinal hernia repair History of knee joint replacement History of left shoulder replacement History of total left hip arthroplasty History of total right hip arthroplasty Hx of cholecystectomy S/P PTCA (percutaneous transluminal coronary angioplasty) Social History (Updated 12/06/22 @ 02:[address] Henrietta Quinonez MD) household members: none Smoking Status: Never smoker alcohol intake: never substance use type: does not use ROS ROS Narrative Admission Review of Systems: CONSTITUTIONAL: No weight loss, fever, chills, + weakness or fatigue. HEENT: Eyes: No visual loss, blurred vision, double vision or yellow sclerae. Ears, Nose, Throat: No hearing loss, sneezing, congestion, runny nose or sore throat. SKIN: No rash or itching, lesions, wounds. CARDIOVASCULAR: + chest pain, chest pressure or chest discomfort, No palpitations, edema, orthopnea, syncopal events. RESPIRATORY: + Shortness of breath, cough without marked sputum, No wheezing, hemoptysis. GASTROINTESTINAL: No anorexia, nausea, vomiting or diarrhea, abdominal pain, melena, BRBPR. GENITOURINARY: No dysuria, frequency, urgency or retention. NEUROLOGICAL: No headache, dizziness, syncope, paralysis, ataxia, numbness or tingling in the extremities, focal weakness, change in bowel or bladder control, seizure. MUSCULOSKELETAL: + muscle, back pain, joint pain or stiffness. HEMATOLOGIC: + anemia, bleeding or bruising. LYMPHATICS: No enlarged nodes. No history of splenectomy. PSYCHIATRIC: + history of depression or anxiety. ENDOCRINOLOGIC: No reports of sweating, cold or heat intolerance. No polyuria or polydipsia. ALLERGIES: + history of hives. Vital Signs Vital Signs Vital Signs: 12/05/22 22:45 12/05/22 22:50 12/05/22 23:03 Temperature 97.9 F Temperature Source Oral Pulse Rate 79 Respiratory Rate 14 Respiratory Effort Normal Non-Labored Blood Pressure 146/77 H Blood Pressure Mean 100 Pulse Ox 96 96 Oxygen Delivery Method Room Air Room Air 12/05/22 23:11 12/06/22 00:35 Temperature Temperature Source Pulse Rate 68 Respiratory Rate 18 Respiratory Effort Blood Pressure 146/84 H 131/67 H Blood Pressure Mean 88 Pulse Ox 96 Oxygen Delivery Method Room Air Weight Weight: 319 lb 10.724 oz Body Mass Index (BMI) 41.0 Physical Exam Narrative Physical Examination: General: Awake, alert, oriented x 3 and cooperative, seated upright in the ED bed, mildly fatigued but notes chest pain still resolved. Skin: Normal color, normal turgor, no icterus, no cyanosis. HEENT: AT/NC, EOMI, PERRLA, MMM, no carotid bruits or JVD noted; however, very thickened neck makes evaluation difficult. Lungs: Distant breath sounds, diminished, greater bases, appropriate effort, no rales, ronchi or wheezing. Heart: Regular rate and rhythm; no gallop, rub audible. Abdomen: Soft, morbidly obese, NTTP, difficult to assess distention and HSM secondary to habitus, distant normal BS. Extremities: No cyanosis, no clubbing, bilateral nonpitting ankle edema. Neurological: Patient awake, alert, oriented as noted, cognitive function intact; pupils equally reactive to light and accommodation, cranial nerves II-XII grossly normal, moving all 4 extremities, no focal deficits, strength moderately global decrease secondary to acute complaints but improving given resolution chest discomfort. Psychiatric: Affect appears fatigued otherwise normal, no acute evidence of depressive or anxiety feelings but does have underlying history. Results Lab / Micro Data 12/05/22 23:00 12/05/22 23:00 Labs: Laboratory Results - last 24 hr 12/05/22 23:00: WBC 15.5 H, RBC 4.21 L, Hgb 12.5 L, Hct 38.6 L, MCV 91.7, MCH 29.7, MCHC 32.4, RDW Std Deviation 47.4 H, RDW Coeff of Santhosh 14.3, Plt Count 263, MPV 9.7, Immature Gran % (Auto) 1.100 H, Neut % (Auto) 92.5 H, Lymph % (Auto) 3.8 L, [place] % (Auto) 2.4, Eos % (Auto) 0.0, Baso % (Auto) 0.2, Absolute Neuts (auto) 14.4 H, Absolute Lymphs (auto) 0.59 L, Nucleated RBC % 0, Differential Comment SCANNED, Sodium 137, Potassium 4.9, Chloride 109 H, Carbon Dioxide 23.0, Anion Gap 5, BUN 27 H, Creatinine 1.56 H, Estim Creat Clear Calc 53.42, Est GFR (MDRD) Af Amer 57 L, Est GFR (MDRD) Non-Af 47 L, BUN/Creatinine Ratio 17.3, Glucose 199 H, Calcium 9.1, Troponin I High Sens 174 H*, B-Natriuretic Peptide 14.5 Radiology Impression Chest X-Ray 12/05/22 23:06 IMPRESSION: Normal x-ray examination of the chest. Electronically Signed: Javy Nelson MD at 23:27 EDT , Assessment & Plan Assessment/Plan (1) NSTEMI, initial episode of care: PLAN: Plan The patient is a 67 y/o M w/ PMHx: Chronic normocytic anemia, Morbid Obesity, Chronic dyphagia following with Dr. Vera, PAF, CAD s/p PCI, COPD, Depression and Anxiety, GERD, HIPOLITO, Rheumatoid arthritis who presents to the [facility] ED on 12/06/22 with history of onset of chest discomfort with associated dyspnea at approximately 10 PM on evening prior to ED presentation noted to be worse with exertion with associated nausea without emesis as well as dizziness with discomfort midsternal radiating towards back as well as his neck prompting eventual ED evaluation. #1. Chest Pain w/ Acute NSTEMI: EKG in ED w/ sinus rhythm with no acute evidence of ischemia, CXR w/ no acute cardiopulmonary findings. Trop elevated, initial 174. Will admit to PCU, maintain on a monitored bed, continue serial cardiac enzymes and EKGs. Obtain magnesium level upon admission. We will temporarily hold patient home apixaban regimen and the next dose due will initiate heparin drip for future cardiac catheterization potential planning. Continue medical management w/ asa, Plavix, per most recent list not on beta-delia therapy, continue lisinopril, statin therapy. Magnesium level requested. FLP in AM. ECHO requested. Cardiology consulted, pending. ASA, NG, morphine. #2. CAD: Status post prior PCI, will continue aspirin, Plavix, lisinopril, not on beta-delia therapy, temporally holding Eliquis with transition at next dose due to heparin drip for preparation for possible cardiac catheterization. #3. Hypertension: Continue home regimen including amlodipine, isosorbide, lisinopril, spironolactone, PRN hydralazine. #4. Hyperlipidemia: Continue home statin regimen. AM FLP. #5. Chronic normocytic anemia: Admission hemoglobin 12.5, prior baseline primarily 11-13 but is primarily been in the 12 range more recently until 11/25/2022 hemoglobin 13.5 at that time, will continue to trend. #6. Chronic Kidney Disease Stage III, unclear subtype: Admission BUN/Cr 27/1.5, baseline renal function appears primarily 1.2-1.5, repeat BMP in AM. #7. Morbid Obesity: Weight loss and lifestyle changes encouraged. #8. PAF: We will continue patient home amiodarone regimen, temporally holding home Eliquis and plan to transition at next dose due to heparin drip for possible cardiac catheterization preparation. #9. Chronic COPD: Does not appear to be on chronic oxygen or chronic inhalers, given cough complaints will add ATC budesonide, PRN albuterol, HOB, IS parameters. #10. GERD: We will continue patient home PPI. #11. Rheumatoid arthritis: Per current list not on any chronic rheumatological type regimen, does have chronic oxycodone, will continue. #12. Depression and anxiety: Noted chart history, per current list not on any chronic regimen, clarifying. #13. HIPOLITO: BIPAP q HS. #14. DVT prophylaxis: As noted temporally holding home Eliquis without next dose due transition to heparin drip for possible cardiac catheterization preparation. #15. CODE status: Patient LANDON is his brother and living will is currently in place. Discussed CODE status at length including difference between FULL code, DNR-CCA and DNR-CC status. Following discussions about the differences in these status, requested full CODE STATUS however initially he was not so certain but once we discussed he noted full code amenable but if things seem dire to transition to comfort measures. Advanced Care Planning Face to Face Time: 16 minutes. Admission Evaluation Time spent evaluating chart, patient history, patient evaluation, care planning and discussion with specialists: 75 minutes. Charges/Coding Visit Charges Inpatient E&M: 35585 Init Hosp L3 Procedures Hospitalists Procedures: 04592 Advncd Care Plan 30 Min
[2022-12-06 01:03] LABS: Magnesium 2.2 mg/dL (1.6-2.6); Partial Thromboplast Time 24.1 Seconds (24.1-36.2)
[2022-12-06 01:15] LABS: Reflex Troponin-HS? (from REC) Y
[2022-12-06 01:55] LABS: Troponin-I HS 175 pg/mL (3.0-78.0)
--- NOTE | 2022-12-06 08:59 | ED.RN ---
THIS RN ATTEMPTS TO CALL REPORT TO [facility] AT [facility]. CHARGE NURSE TELLS THIS RN THAT THE ROOM PT WAS ASSIGNED TO HAS BEEN BLOCKED FOR ANOTHER PT TOMORROW. BED MANAGEMENT ASSIGNED PATIENT TO ANOTHER BED IN 1 [place]. PHONE NUMBER GIVEN TO CALL REPORT. THIS RN INFORMS NURSE THAT PT HAS LEFT OUR ED AND IS IN ROUTE TO [facility] AT THIS TIME.
== END 2022-12-06 08:48 | disposition short-term general hospital (02) ==
PROVIDERS: Family Medicine; Emergency Provider Emergency Medicine; PCP Family Medicine; Visit Provider Emergency Medicine
DX: R07.9 Chest pain, unspecified (principal); M06.9 Rheumatoid arthritis, unspecified; I48.0 Paroxysmal atrial fibrillation; R06.02 Shortness of breath; I25.10 Atherosclerotic heart disease of native coronary artery without angina pectoris; K21.9 Gastro-esophageal reflux disease without esophagitis; E78.00 Pure hypercholesterolemia, unspecified; I10 Essential (primary) hypertension; G47.30 Sleep apnea, unspecified; Z79.899 Other long term (current) drug therapy; Z79.01 Long term (current) use of anticoagulants; Z86.73 Personal history of transient ischemic attack (TIA), and cerebral infarction without residual deficits
CPT/HCPCS: 71045; 80048; 83735; 83880; 84484; 85025; 85610; 85730; 93005; 99285; A4216

== ENCOUNTER → 2022-12-14 | Outpatient (CLI) | payer MEDICARE, OTHER, SELFPAY ==
[2022-12-14 15:54] LABS: Anion Gap 5 (5-15); BUN 27 mg/dL (7-18); BUN/Creat Ratio 17.6 RATIO (10-20); Calcium,Total 9.2 mg/dL (8.5-10.1); Chloride 108 mmol/L (98-107); Creatinine, Serum 1.53 mg/dL (0.70-1.30); EST Glomerular Filtration Rate 49 mL/min (>60); Est Glom Filt Rate - Afr Amer 59 mL/min (>60); Glucose 106 mg/dL (74-106); Sodium Level 140 mmol/L (136-145)
== END | disposition home or self-care (01) ==
LOC: MFPLAB 11:44
PROVIDERS: Nurse Practitioner Family; PCP Family Medicine; Visit Provider Family Medicine
DX: N18.30 Chronic kidney disease, stage 3 unspecified (principal)
CPT/HCPCS: 36415; 80048

== ENCOUNTER 2022-12-28 22:45 | Emergency (ER) | payer MEDICARE, OTHER, SELFPAY ==
[2022-12-28 22:46] VITALS: BP 173/87; PULSE 87; RESP 16; TEMP 36.6; O2SAT 97; BMI 39.2
--- NOTE | 2022-12-28 23:08 | CT_ITS ---
EXAM: CT HEAD WITHOUT INTRAVENOUS CONTRAST CLINICAL INDICATION: head injury TECHNIQUE: Multiple axial images were obtained of the head without intravenous contrast. CTDIvol = ( 44.99 ) mGy, DLP = ( 880.47 ) mGycm This CT exam was performed using one or more of the following dose reduction techniques: automated exposure control, adjustment of the mA and/or kV according to patient size, and/or use of iterative reconstruction technique. COMPARISON: No relevant prior studies available. FINDINGS: BRAIN AND EXTRA-AXIAL SPACES: Periventricular small vessel ischemic change. No midline shift or hydrocephalus. Diffuse parenchymal atrophy. Posterior fossa structures are unremarkable. Basal cisterns are patent. No acute intracranial hemorrhage, mass effect or edema. No evidence of acute cortical stroke. BONES/JOINTS: Unremarkable. No discrete lytic or blastic abnormalities. VASCULATURE: Atherosclerotic calcifications of the carotid siphons and vertebrobasilar arteries. SINUSES: Unremarkable as visualized. Clear. MASTOID AIR CELLS: Visualized sinuses and mastoid air cells are clear. ORBITS: Visualized globes, extraocular muscles, optic nerves and retrobulbar fat appear unremarkable. CT/Brain/Head without Contrast IMPRESSION: 1. No evidence of acute intracranial pathology. No acute calvarial fracture. 2. Diffuse involutional changes and chronic ischemic small vessel white matter disease. AIDOC was utilized to assist in identifying pertinent positive findings. Electronically Signed: George Oswald MD at 0:23 EDT ,
--- NOTE | 2022-12-28 23:09 | EX.ED.DYSGE1 ---
HPI History of Present Illness Chief Complaint: Fall Informant: patient Narrative Narrative: Patient is a 67-year-old male with past medical history of CAD hypertension hyperlipidemia paroxysmal atrial fibrillation currently on Eliquis. He states around 5 PM today he was walking outside when he slipped on the concrete and fell. He states he landed on his left side. He reports he did strike his head but denies any loss of consciousness. He states he struck his right harrison off his friends truck hitch. He states he was able to get back up and has been able to ambulate but as time is past he has noticed increased pain in his low back left hip and swelling and pain to his right harrison. With concern for potential underlying fracture he presents for evaluation. [facility] Medical History Anxiety Atrial fibrillation CAD (coronary artery disease) Cardiology follow-up encounter Chest pain Cholelithiasis with chronic cholecystitis COPD (chronic obstructive pulmonary disease) COPD (chronic obstructive pulmonary disease) Coronary atherosclerosis of [place] coronary vessel Depression Difficulty swallowing Dysphagia Epidermal inclusion cyst Esophageal reflux Excessive bleeding Gastric reflux High cholesterol History of atrial fibrillation History of echocardiogram History of edema History of heart attack history of ischemic stroke History of stress test HTN (hypertension) Hyperlipidemia Hypertension Left rotator cuff tear Leg cramps Non-smoker NSVT (nonsustained ventricular tachycardia) Obstructive sleep apnea syndrome PONV (postoperative nausea and vomiting) Rheumatoid arthritis Screening for malignant neoplasm of intestine Sensorineural hearing loss, 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 Shortness of breath on exertion Sleep apnea Wears glasses Home Medications amlodipine 5 mg tablet (Norvasc) 5 mg PO DAILY blood pressure 10/05/19 [History Last Taken 08/20/22] minoxidil 10 mg tablet 5 mg PO BID blood pressure 10/05/19 [History Last Taken 08/20/22] nitroglycerin 0.4 mg sublingual tablet 0.4 mg sublingual Q5-15M PRN cp 10/05/19 [History Last Taken Unknown] amiodarone 200 mg tablet 200 mg PO DAILY HEART 04/01/20 [History Last Taken 08/20/22] lisinopril 20 mg tablet 20 mg PO DAILY HTN 10/27/20 [History Last Taken 08/20/22] spironolactone 25 mg tablet (Aldactone) 25 mg PO DAILY diuretic 10/27/20 [History Last Taken 10/27/20] atorvastatin 80 mg tablet 80 mg PO QHS #30 tabs 10/31/20 [Rx Last Taken Unknown] clopidogrel 75 mg tablet (Plavix) 75 mg PO DAILY 09/09/21 [History Last Taken 08/15/22] apixaban 5 mg tablet (Eliquis) 5 mg PO BID 10/30/21 [History Last Taken 08/17/22] isosorbide mononitrate 30 mg tablet,extended release 24 hr 30 mg PO BID 01/07/22 [History Last Taken 08/20/22] pantoprazole 40 mg tablet,delayed release (Protonix) 40 mg PO QAM #90 tabs 04/01/22 [Rx Last Taken 08/20/22] oxycodone 5 mg tablet 10 mg (2 x 5 mg) PO Q6H PRN PRN Pain Score 6-10 7 days #42 tabs 08/21/22 [Rx Last Taken Unknown] Allergy/AdvReac Type Severity Reaction Status Date / Time Penicillins Allergy Hives Verified 12/28/22 22:48 Family History (Updated 12/06/22 @ 02:[address] Henrietta Quinonez MD) Sister Cancer ovarian Brother Diabetes Mother Heart disease Father Prostate cancer Surgical History History of cardiac catheterization History of colonoscopy (~2014) History of coronary angioplasty History of esophagogastroduodenoscopy (EGD) (~2014) History of heart artery stent History of inguinal hernia repair History of knee joint replacement History of left shoulder replacement History of total left hip arthroplasty History of total right hip arthroplasty Hx of cholecystectomy S/P PTCA (percutaneous transluminal coronary angioplasty) Social History (Updated 12/06/22 @ 02:[address] Henrietta Quinonez MD) household members: none Smoking Status: Never smoker alcohol intake: never substance use type: does not use ROS ROS ED Constitutional Constitutional ED: Denies chills or fever(s) Eyes Eyes: Denies blurry vision or change in vision ENT ENT ED: Denies sore throat Cardiovascular Cardiovascular: Denies chest pain Respiratory/Chest Respiratory/Chest: Denies cough or dyspnea Gastrointestinal Gastrointestinal: Denies abdominal pain, diarrhea, nausea or vomiting Genitourinary Genitourinary ED: Denies dysuria Musculoskeletal Musculoskeletal: Reports back pain and other Details: Positive left hip and right harrison pain ; Denies neck pain Integumentary Reports Abrasions and other Details: Soft tissue swelling right harrison ; Denies rash Neurologic Neurologic: Denies headache(s) or paresthesias Hematologic/Lymphatic Hematologic/Lymphatic: Reports easy bleeding and easy bruising EXAM Physical Exam Const Vital Signs: 12/28/22 22:46 12/28/22 22:52 12/29/22 01:09 Temperature 98 F Temperature Source Temporal Pulse Rate 87 75 Respiratory Rate 16 18 Respiratory Effort Normal Blood Pressure 173/87 H 135/82 H Blood Pressure Mean 115 Pulse Ox 97 Oxygen Delivery Method Room Air Positive well nourished, well developed and obese General Appearance ED: well developed Nutritional Appearance: obese HEENT HEENT Narrative: Normocephalic atraumatic No signs of depressed or basilar skull fracture Eyes PERRL and EOMs intact bilaterally Neck supple Neck Narrative: No bony deformity or step-off of the cervical spine no midline pain with palpation Chest Wall palpation of chest normal Resp normal respiratory effort and clear to auscultation bilaterally Cardio regular rate and regular rhythm GI normal to inspection, nondistended, normoactive bowel sounds, non-tender, non-distended and no masses GI Narrative: No voluntary guarding or rigidity no pulsatile mass or fluid wave Auscultation: normoactive bowel sounds Palpation: soft Back/Spine Back/Spine Narrative: No bony deformity or step-off of the thoracic or lumbar spine there is mild midline lumbar pain with palpation Extremity Extremity Narrative: Pelvis is stable there is no shortening or external rotation of either lower extremity. Patient has mild pain with palpation of the left posterior hip Patient has soft tissue swelling with hematoma formation of the anterior aspect of the right mid harrison. There is pain on palpation at the site without obvious bony deformity. Neuro oriented x3 and CN's II-XII intact bilaterally Sensorium / Orientation: alert Psych mental status grossly normal Skin Skin Narrative: Hematoma to the right mid harrison as documented above without secondary changes to suggest infection MDM MDM MDM Narrative Medical decision making narrative: Patient presented to the ER approximately 5 hours after report of mechanical fall. As the fall is mechanical there is no need for cardiac or syncope work-up. With the patient's report of fall and trauma as well as being on a anticoagulant differential diagnosis includes skull fracture versus subarachnoid versus epidural or subdural hematoma. There is also concern for compression fracture versus spondylolisthesis. Secondary to this imaging studies were obtained. Imaging studies revealed arthritic changes without acute fracture dislocation or signs of internal bleeding. Therefore at this time as images revealed no signs of acute trauma and history and exam indicates patient has a hematoma to the right harrison without secondary infection there is no need for further evaluation he is otherwise safe for discharge History & Record Review Discussion w/independent historian: Patient Radiography Diagnostic Testing: Clinical Impression(s) from Imaging Studies Brain CT 12/28/22 23:08 IMPRESSION: 1. No evidence of acute intracranial pathology. No acute calvarial fracture. 2. Diffuse involutional changes and chronic ischemic small vessel white matter disease. [employer] was utilized to assist in identifying pertinent positive findings. Electronically Signed: George Oswald MD at 0:23 EDT Reading Location ID and State: [employer] / [place] Tel , Service support , Hip/Pelvis X-Ray 12/28/22 23:28 IMPRESSION: 1. No acute or healing fracture or malalignment. 2. No unusual lytic or sclerotic lesions of bone. 3. Ancillary findings as above. Electronically Signed: George Oswald MD at 0:40 EDT Reading Location ID and State: [employer] Tel , Service support , Lumbar Spine X-Ray 12/28/22 23:28 IMPRESSION: 1. No acute or healing fracture or malalignment. 2. No unusual lytic or sclerotic lesions of bone. Electronically Signed: George Oswald MD at 0:42 EDT Reading Location ID and State: [employer] / [place] Tel , Service support , Tibia/Fibula X-Ray 12/28/22 23:28 IMPRESSION: 1. No acute or healing fracture or malalignment. 2. Chronic and ancillary findings as above. Electronically Signed: George Oswald MD at 0:44 EDT Reading Location ID and State: [employer] / [employer] ([employer] Tel , Service support , X-ray of the lumbar spine as interpreted by the emergency medicine physician reveals arthritic changes without acute fracture or spondylolisthesis X-ray of the left hip with 1 view pelvis as interpreted by emergency medicine physician reveals arthritic changes not acute fracture or dislocation X-ray of the right tibia/fibula as interpreted by the emergency medicine physician reveals soft tissue swelling without acute fracture or dislocation or foreign body Discharge Plan Triage Chief Complaint: Fall ED Provider: George Pond Dx/Rx/DC Orders Clinical Impression: Hematoma, Contusion of multiple sites, Accidental fall, HTN (hypertension), Current use of penitentiary anticoagulation, AF (paroxysmal atrial fibrillation) Instructions: ED Hematoma Prescriptions: No Action nitroglycerin 0.4 mg tablet, sublingual 0.4 mg SUBLINGUAL Q5-15M PRN (Reason: cp) Rx Instructions: do not exceed 3 doses per episode amlodipine [Norvasc] 5 mg tablet 5 mg PO DAILY minoxidil 10 mg tablet 5 mg PO BID Patient Comments: TAKE ONE-HALF TABLET BY MOUTH TWICE DAILY Eliquis 5 mg tablet 5 mg PO BID pantoprazole [Protonix] 40 mg tablet,delayed release (DR/EC) 40 mg PO QAM Qty: 90 3RF amiodarone 200 MG tablet 200 mg PO DAILY lisinopril 20 mg Tablet 20 mg PO DAILY spironolactone [Aldactone] 25 mg Tablet 25 mg PO DAILY atorvastatin 80 mg Tablet 80 mg PO QHS Qty: 30 0RF clopidogrel [Plavix] 75 mg Tablet 75 mg PO DAILY isosorbide mononitrate 30 mg Tablet Extended Release 24 Hr 30 mg PO BID oxycodone 5 mg Tablet 10 mg PO Q6H PRN PRN (Reason: Pain Score 6-10) 7 Days Qty: 42 0RF Primary Care Provider: Finn Ferrell Referrals: Finn Ferrell MD [Primary Care Provider] - Activity Restrictions/Additional Instructions: Please wear your Ezekiel wrap along your right harrison to compress the hematoma and prevent further swelling. Continue to ice the area for the next 3 to 4 days and then change to warm compresses to help dissolve any remaining blood. If you have any further concerns please return for repeat evaluation Disposition Disposition: Home, Self Care Discharge Date/Time: 12/29/22 01:10
--- NOTE | 2022-12-28 23:28 | RAD_ITS ---
EXAM: XR RIGHT TIBIA AND FIBULA, 2 VIEWS CLINICAL INDICATION: pain TECHNIQUE: Frontal and lateral views of the right tibia and fibula. COMPARISON: No relevant prior studies available. FINDINGS: Total knee arthroplasty identified without gross complication. No acute or healing fracture or malalignment. No unusual lytic or sclerotic lesions of bone. No significant knee joint effusion. Vascular calcifications are identified posterior to the knee. Chronic appearing bone fragments along the inferior aspect of the patellofemoral articulation. This could be remote traumatic or degenerative in nature. No focal soft tissue abnormalities. Prominent enthesophytes at the calcaneus. RAD/Tibia & Fibula 2 Views IMPRESSION: 1. No acute or healing fracture or malalignment. 2. Chronic and ancillary findings as above. Electronically Signed: George Oswald MD at 0:44 EDT ,
--- NOTE | 2022-12-28 23:28 | RAD_ITS ---
EXAM: XR LEFT HIP WITH PELVIS WHEN PERFORMED, 1 VIEW CLINICAL INDICATION: pain TECHNIQUE: Frontal view of the left hip with pelvis when performed. COMPARISON: No relevant prior studies available. FINDINGS: BONES/JOINTS: Bilateral total hip arthroplasty with satisfactory alignment and no complications. Degenerative changes of the spine. Heterotopic bone formation along the left lesser and greater trochanters and also at the peripheral/lateral aspect of the left superior acetabulum. Sacroiliac joint is unremarkable. No widening of the pubic symphysis. No acute or healing fracture or malalignment. No unusual lytic or sclerotic lesions of bone. SOFT TISSUES: Unremarkable. No soft tissue swelling or gas. No other focal soft tissue abnormalities. VASCULATURE: Vascular calcification at the peripheral aspect of the left inferior pelvis. RAD/HIP, UNI W/ Pelvis 2-3 Views IMPRESSION: 1. No acute or healing fracture or malalignment. 2. No unusual lytic or sclerotic lesions of bone. 3. Ancillary findings as above. Electronically Signed: George Oswald MD at 0:40 EDT ,
--- NOTE | 2022-12-28 23:28 | RAD_ITS ---
EXAM: XR LUMBOSACRAL SPINE, 2 OR 3 VIEWS CLINICAL INDICATION: pain TECHNIQUE: Frontal and lateral views of the lumbar spine and sacrum. COMPARISON: No relevant prior studies available. FINDINGS: VERTEBRAE: Unremarkable. Preservation of the normal lumbar lordosis. No significant facet arthropathy. No acute or healing fracture or spondylolisthesis. No unusual lytic or sclerotic lesions of bone. OTHER BONES/JOINTS: Small bone island at the left ilium. DISC SPACES: Degenerative changes of the thoracolumbar spine, worse at the mid to lower lumbar spine. VASCULATURE: Atherosclerotic calcifications of the visualized aorta and iliac arteries without aneurysm. Phlebolith suspected at the left inferior pelvis. GASTROINTESTINAL TRACT: Unremarkable as visualized. Included bowel gas pattern is non-obstructive. RAD/Lumbar Spine 2 or 3 Views IMPRESSION: 1. No acute or healing fracture or malalignment. 2. No unusual lytic or sclerotic lesions of bone. Electronically Signed: George Oswald MD at 0:42 EDT ,
[2022-12-29 01:09] VITALS: BP 135/82; PULSE 75; RESP 18
== END 2022-12-29 01:10 | disposition home or self-care (01) ==
PROVIDERS: Emergency Provider Emergency Medicine; PCP Family Medicine; Visit Provider Emergency Medicine
DX: S80.11XA Contusion of right lower leg, initial encounter (principal); J44.9 Chronic obstructive pulmonary disease, unspecified; I48.0 Paroxysmal atrial fibrillation; W01.198A Fall on same level from slipping, tripping and stumbling with subsequent striking against other object, initial encounter; Y93.01 Activity, walking, marching and hiking; Y99.8 Other external cause status; I25.10 Atherosclerotic heart disease of native coronary artery without angina pectoris; I10 Essential (primary) hypertension; I25.2 Old myocardial infarction; E78.00 Pure hypercholesterolemia, unspecified; Z79.01 Long term (current) use of anticoagulants; Z79.02 Long term (current) use of antithrombotics/antiplatelets; Z79.899 Other long term (current) drug therapy; Z86.73 Personal history of transient ischemic attack (TIA), and cerebral infarction without residual deficits
CPT/HCPCS: 70450; 72100; 73502; 73590; 99282

== ENCOUNTER → 2023-01-27 | Outpatient (CLI) | payer MEDICARE, OTHER, SELFPAY ==
[2023-01-27 10:25] LABS: Absolute Lymphocyte Count 1.37 X10^3/uL (0.83-4.51); Absolute Neutrophil Count 6.3 X10^3/uL (2.0-7.7); Basophil# 0.03 X10^3/uL; Basophil% 0.4 % (0-1); Eosinophil# 0.09 X10^3/uL; Eosinophils% 1.1 % (0-5); Hematocrit 32.4 % (40-54); Hemoglobin 10.9 g/dL (13.0-16.5); Lymphocyte # 1.37 X10^3/ul (0.83-4.51); Lymphocyte % 16.2 % (19-41); Mean Corp Hgb Conc 33.6 g/dL (32-36); Mean Corpuscular Hgb 30.9 pg (27.0-32.0); Mean Corpuscular Volume 91.8 fL (80-94); Mean Platelet Vol. 9.1 fl (6.2-12.0); Monocyte# 0.64 X10^3/uL; Monocyte% 7.6 % (0-10); NRBC Flagged by Analyzer 0 % (0-5); Neutrophil # 6.31 X10^3/uL (2.7-7.7); Neutrophil % 74.3 % (47-70); Platelet Count 228 K/mm3 (150-450); RBC Distribution Width CV 14.4 % (11.6-14.6); RBC Distribution Width SD 48.2 fl (35.1-43.9); Red Blood Count 3.53 M/mm3 (4.6-6.2); White Blood Count 8.5 K/mm3 (4.4-11.0)
[2023-01-27 10:51] LABS: Anion Gap 5 (5-15); BUN 42 mg/dL (7-18); BUN/Creat Ratio 22.3 RATIO (10-20); Chloride 109 mmol/L (98-107); Creatinine, Serum 1.88 mg/dL (0.70-1.30); EST Glomerular Filtration Rate 38 mL/min (>60); Est Glom Filt Rate - Afr Amer 46 mL/min (>60); Glucose 135 mg/dL (74-106); Potassium 4.4 mmol/L (3.5-5.1); Sodium Level 140 mmol/L (136-145)
== END | disposition home or self-care (01) ==
LOC: LAB 08:34
PROVIDERS: PCP Family Medicine
DX: R06.09 Other forms of dyspnea (principal)
CPT/HCPCS: 36415; 80048; 85025

== ENCOUNTER → 2023-02-05 | Outpatient (CLI) | payer MEDICARE, OTHER, SELFPAY ==
[2023-02-05 09:15] LABS: Bacteria 0 SEEN /hpf (None Seen); Mucous, Urine 0 SEEN /hpf (<or=2+); Red Blood Cells-Urine 0 SEEN /hpf (0-5); Squamous Epithelial Cells - UA 0 SEEN /hpf (0-5)
[2023-02-05 10:14] LABS: Absolute Lymphocyte Count 1.13 X10^3/uL (0.83-4.51); Absolute Neutrophil Count 6.1 X10^3/uL (2.0-7.7); Basophil# 0.05 X10^3/uL; Basophil% 0.6 % (0-1); Eosinophil# 0.11 X10^3/uL; Eosinophils% 1.4 % (0-5); Hematocrit 35.9 % (40-54); Hemoglobin 11.5 g/dL (13.0-16.5); Lymphocyte # 1.13 X10^3/ul (0.83-4.51); Lymphocyte % 14.2 % (19-41); Mean Corpuscular Hgb 30.1 pg (27.0-32.0); Mean Platelet Vol. 9.4 fl (6.2-12.0); Monocyte# 0.55 X10^3/uL; Monocyte% 6.9 % (0-10); NRBC Flagged by Analyzer 0 % (0-5); Neutrophil # 6.09 X10^3/uL (2.7-7.7); Neutrophil % 76.4 % (47-70); Platelet Count 267 K/mm3 (150-450); RBC Distribution Width CV 14.3 % (11.6-14.6); RBC Distribution Width SD 48.9 fl (35.1-43.9); Red Blood Count 3.82 M/mm3 (4.6-6.2)
[2023-02-05 10:16] LABS: Color, Urine Yellow (Yellow); Glucose, Dipstick Normal (Normal); Ketone-Dipstick Negative (Negative); Leukocyte Esterase-Dipstick 25 /ul (Negative); Nitrite-Dipstick Negative (Negative); Occult Blood-Urine Negative /ul (Negative); Protein-Dipstick Negative (Negative); Urine Bilirubin Dipstick Negative (Negative); Urine Clarity Clear (Clear); Urine Urobilinogen Normal (Normal)
[2023-02-05 10:28] LABS: White Blood Cells 0-5 SEEN /hpf (0-5)
[2023-02-05 10:58] LABS: ALB/GLOB Ratio 0.9 RATIO (0.9-2.4); AST(SGOT) 17 U/L (15-37); Alanine Aminotransfer ALT/SGPT 30 U/L (16-61); Albumin, Serum 3.6 g/dL (3.2-5.0); Alkaline Phosphatase 91 U/L (45-117); Anion Gap 5 (5-15); BUN 36 mg/dL (7-18); BUN/Creat Ratio 21.1 RATIO (10-20); Chloride 108 mmol/L (98-107); Cholesterol 137 mg/dL (200); Creatinine, Serum 1.71 mg/dL (0.70-1.30); EST Glomerular Filtration Rate 43 mL/min (>60); Est Glom Filt Rate - Afr Amer 52 mL/min (>60); Ferritin 405 ng/mL (26-388); Globulin 3.9 g/dL (2.2-4.2); Glucose 109 mg/dL (74-106); High Density Lipoprotein 48 mg/dL; Iron 70 ug/dL (65-175); Iron Binding Capacity,Total 296 ug/dL (250-450); Magnesium 2.4 mg/dL (1.6-2.6); Potassium 4.6 mmol/L (3.5-5.1); Protein, Total 7.5 g/dL (6.4-8.2); Sodium Level 138 mmol/L (136-145); Triglycerides 204 mg/dL; Very Low Density Lipoprotein 41 mg/dL (5-40)
[2023-02-05 11:01] LABS: Vitamin B12 359 pg/mL (211-911); Vitamin D,25 Hydroxy 36.4 ng/mL
[2023-02-08 17:45] LABS: Hemoglobin A1c 5.3 % (3.8-5.6)
== END | disposition home or self-care (01) ==
LOC: MTLAB 09:11
PROVIDERS: PCP Family Medicine; Referring Provider Family Medicine; Visit Provider Family Medicine
DX: R73.09 Other abnormal glucose (principal); I48.91 Unspecified atrial fibrillation; I10 Essential (primary) hypertension; E78.5 Hyperlipidemia, unspecified; E55.9 Vitamin D deficiency, unspecified; D64.9 Anemia, unspecified
CPT/HCPCS: 36415; 80053; 80061; 81001; 82306; 82607; 82728; 82746; 83036; 83540; 83550; 83735; 85025

== ENCOUNTER → 2023-02-19 | Outpatient (CLI) | payer MEDICARE, OTHER, SELFPAY ==
[2023-02-19 09:39] LABS: AST(SGOT) 18 U/L (15-37); Alanine Aminotransfer ALT/SGPT 34 U/L (16-61); Albumin, Serum 3.6 g/dL (3.2-5.0); Alkaline Phosphatase 95 U/L (45-117); Anion Gap 4 (5-15); BUN 18 mg/dL (7-18); BUN/Creat Ratio 11.4 RATIO (10-20); Calcium,Total 8.6 mg/dL (8.5-10.1); Chloride 111 mmol/L (98-107); Cholesterol 135 mg/dL (200); Creatinine, Serum 1.58 mg/dL (0.70-1.30); EST Glomerular Filtration Rate 47 mL/min (>60); Est Glom Filt Rate - Afr Amer 57 mL/min (>60); Globulin 3.7 g/dL (2.2-4.2); Glucose 153 mg/dL (74-106); High Density Lipoprotein 47 mg/dL; Potassium 3.9 mmol/L (3.5-5.1); Protein, Total 7.3 g/dL (6.4-8.2); Sodium Level 142 mmol/L (136-145); Triglycerides 190 mg/dL; Very Low Density Lipoprotein 38 mg/dL (5-40)
== END | disposition home or self-care (01) ==
PROVIDERS: PCP Family Medicine
DX: I25.10 Atherosclerotic heart disease of native coronary artery without angina pectoris (principal); E78.49 Other hyperlipidemia
CPT/HCPCS: 36415; 80053; 80061

== ENCOUNTER → 2023-03-24 | Outpatient (CLI) | payer MEDICARE, OTHER, SELFPAY ==
[2023-03-24 15:17] LABS: Bacteria 0 SEEN /hpf (None Seen); Mucous, Urine 0 SEEN /hpf (<or=2+); Red Blood Cells-Urine 0 SEEN /hpf (0-5); Squamous Epithelial Cells - UA 0 SEEN /hpf (0-5); White Blood Cells 0 SEEN /hpf (0-5)
[2023-03-24 16:14] LABS: Absolute Lymphocyte Count 1.31 X10^3/uL (0.83-4.51); Absolute Neutrophil Count 5.4 X10^3/uL (2.0-7.7); Basophil# 0.04 X10^3/uL; Basophil% 0.5 % (0-1); Eosinophil# 0.09 X10^3/uL; Eosinophils% 1.2 % (0-5); Hematocrit 38.5 % (40-54); Hemoglobin 12.1 g/dL (13.0-16.5); Lymphocyte # 1.31 X10^3/ul (0.83-4.51); Lymphocyte % 17.8 % (19-41); Mean Corp Hgb Conc 31.4 g/dL (32-36); Mean Corpuscular Hgb 29.1 pg (27.0-32.0); Mean Corpuscular Volume 92.5 fL (80-94); Mean Platelet Vol. 9.6 fl (6.2-12.0); Monocyte# 0.49 X10^3/uL; Monocyte% 6.6 % (0-10); NRBC Flagged by Analyzer 0 % (0-5); Neutrophil # 5.41 X10^3/uL (2.7-7.7); Neutrophil % 73.4 % (47-70); Platelet Count 254 K/mm3 (150-450); RBC Distribution Width CV 13.4 % (11.6-14.6); RBC Distribution Width SD 45.4 fl (35.1-43.9); Red Blood Count 4.16 M/mm3 (4.6-6.2); White Blood Count 7.4 K/mm3 (4.4-11.0)
[2023-03-24 16:15] LABS: Color, Urine Yellow (Yellow); Glucose, Dipstick Normal (Normal); Ketone-Dipstick Negative (Negative); Leukocyte Esterase-Dipstick Negative /ul (Negative); Nitrite-Dipstick Negative (Negative); Occult Blood-Urine Negative /ul (Negative); Protein-Dipstick Negative (Negative); Specific Gravity, Urine 1.015 (1.002-1.030); Urine Bilirubin Dipstick Negative (Negative); Urine Clarity Clear (Clear); Urine Urobilinogen Normal (Normal)
[2023-03-24 17:20] LABS: Vitamin B12 304 pg/mL (211-911); Vitamin D,25 Hydroxy 55.9 ng/mL
[2023-03-24 17:39] LABS: ALB/GLOB Ratio 0.9 RATIO (0.9-2.4); AST(SGOT) 13 U/L (15-37); Alanine Aminotransfer ALT/SGPT 28 U/L (16-61); Albumin, Serum 3.4 g/dL (3.2-5.0); Alkaline Phosphatase 88 U/L (45-117); Anion Gap 5 (5-15); BUN 20 mg/dL (7-18); BUN/Creat Ratio 14.7 RATIO (10-20); Calcium,Total 8.6 mg/dL (8.5-10.1); Chloride 109 mmol/L (98-107); Cholesterol 131 mg/dL (200); Creatinine, Serum 1.36 mg/dL (0.70-1.30); EST Glomerular Filtration Rate 56 mL/min (>60); Est Glom Filt Rate - Afr Amer 67 mL/min (>60); Ferritin 254 ng/mL (26-388); Globulin 3.8 g/dL (2.2-4.2); Glucose 84 mg/dL (74-106); High Density Lipoprotein 47 mg/dL; Iron 56 ug/dL (65-175); Iron Binding Capacity,Total 277 ug/dL (250-450); Phosphorus 2.4 mg/dL (2.5-4.9); Potassium 3.7 mmol/L (3.5-5.1); Protein, Total 7.2 g/dL (6.4-8.2); Sodium Level 140 mmol/L (136-145); Triglycerides 226 mg/dL; Very Low Density Lipoprotein 45 mg/dL (5-40)
== END | disposition home or self-care (01) ==
PROVIDERS: PCP Family Medicine
DX: N17.9 Acute kidney failure, unspecified (principal); N18.30 Chronic kidney disease, stage 3 unspecified; E55.9 Vitamin D deficiency, unspecified; I25.10 Atherosclerotic heart disease of native coronary artery without angina pectoris; D63.1 Anemia in chronic kidney disease
CPT/HCPCS: 80053; 80061; 81001; 82306; 82607; 82728; 82746; 83540; 83550; 83970; 84100; 85025

== ENCOUNTER → 2023-03-29 | Outpatient (CLI) | payer MEDICARE, OTHER, SELFPAY ==
--- NOTE | 2023-03-29 07:50 | RAD_ITS ---
STUDY: X-RAY - ESOPHAGUS (BARIUM SWALLOW) WITH FLUOROSCOPY REASON FOR EXAM: Male, 67 years old. DYSPHAGIA TECHNIQUE: 14 view(s) of the esophagus were obtained following swallowing of barium. FLUOROSCOPY TIME (if supplied): (31 seconds) minutes/seconds. 41.73 mGy COMPARISON: Comparison is made with prior study dated October 09, 2021. FINDINGS: There is no demonstrated esophageal foreign body. There is no demonstrated stricture or mucosal abnormality. Normal gastroesophageal junction, without a demonstrated hiatal hernia. The patient ingested a 12 mm tablet of barium without any difficulty. There is atherosclerotic tortuosity of the aortic arch and descending thoracic aorta. Normal visualized pulmonary parenchyma. There is evidence of coronary artery stenting. There are degenerative changes of the visualized thoracic spine. RAD/Esophagus Dual Contrast IMPRESSION: Normal plain film x-ray examination (barium swallow) of the esophagus. Stable examination. Electronically Signed: Beka Zuleta MD at 9:40 EST ,
== END | disposition home or self-care (01) ==
LOC: RAD 07:41
PROVIDERS: PCP Family Medicine; Referring Provider Family Medicine; Visit Provider Family Medicine
DX: R13.10 Dysphagia, unspecified (principal)
CPT/HCPCS: 74221

== ENCOUNTER → 2023-04-09 | Outpatient (CLI) | payer MEDICARE, OTHER, SELFPAY ==
[2023-04-09 11:19] LABS: Anion Gap 2 (5-15); BUN 25 mg/dL (7-18); BUN/Creat Ratio 16.7 RATIO (10-20); Calcium,Total 8.5 mg/dL (8.5-10.1); Chloride 112 mmol/L (98-107); EST Glomerular Filtration Rate 50 mL/min (>60); Est Glom Filt Rate - Afr Amer 60 mL/min (>60); Glucose 116 mg/dL (74-106); Potassium 4.1 mmol/L (3.5-5.1); Sodium Level 142 mmol/L (136-145)
== END | disposition home or self-care (01) ==
LOC: LAB 09:21
PROVIDERS: PCP Family Medicine
DX: I25.10 Atherosclerotic heart disease of native coronary artery without angina pectoris (principal); I48.0 Paroxysmal atrial fibrillation
CPT/HCPCS: 36415; 80048

== ENCOUNTER 2023-05-20 09:31 | Day surgery (SDC) | payer MEDICARE, OTHER, SELFPAY ==
--- NOTE | 2023-05-20 09:57 | PCM.HP.BLA ---
History and Physical Date of Admission: 05/20/23 Visit Reasons: Dysphagia Chief Complaint: dysphagia Is patient in pain?: No Allergies Penicillins Allergy (Verified 04/07/23 09:20) Hives Medications minoxidil 10 mg tablet 5 mg PO BID blood pressure 10/05/19 [History Confirmed 04/07/23] nitroglycerin 0.4 mg sublingual tablet 0.4 mg sublingual Q5-15M PRN cp 10/05/19 [History Confirmed 04/07/23] atorvastatin 80 mg tablet 80 mg PO QHS #30 tabs 10/31/20 [Rx Confirmed 04/07/23] clopidogrel 75 mg tablet (Plavix) 75 mg PO DAILY 09/09/21 [History Confirmed 04/07/23] apixaban 5 mg tablet (Eliquis) 5 mg PO BID 10/30/21 [History Confirmed 04/07/23] isosorbide mononitrate 30 mg tablet,extended release 24 hr 30 mg PO BID 01/07/22 [History Confirmed 04/07/23] pantoprazole 40 mg tablet,delayed release (Protonix) 40 mg PO QAM #90 tabs 04/01/22 [Rx Confirmed 04/07/23] oxycodone 5 mg tablet 10 mg (2 x 5 mg) PO Q6H PRN PRN Pain Score 6-10 7 days #42 tabs 08/21/22 [Rx Confirmed 04/07/23] metoprolol succinate 50 mg tablet,extended release 24 hr 50 mg PO DAILY 04/07/23 [History Confirmed 04/07/23] ranolazine 1,000 mg tablet,extended release,12 hr (Ranexa) 1,000 mg PO BID 04/07/23 [History Confirmed 04/07/23] torsemide 20 mg tablet 20 mg PO DAILY 04/07/23 [History Confirmed 04/07/23] PFSH Medical History Anxiety Atrial fibrillation CAD (coronary artery disease) Cardiology follow-up encounter Chest pain Cholelithiasis with chronic cholecystitis COPD (chronic obstructive pulmonary disease) COPD (chronic obstructive pulmonary disease) Coronary atherosclerosis of [place] coronary vessel Depression Difficulty swallowing Dysphagia Epidermal inclusion cyst Esophageal reflux Excessive bleeding Gastric reflux High cholesterol History of atrial fibrillation History of echocardiogram History of edema History of heart attack history of ischemic stroke History of stress test HTN (hypertension) Hyperlipidemia Hypertension Left rotator cuff tear Leg cramps Non-smoker NSVT (nonsustained ventricular tachycardia) Obstructive sleep apnea syndrome PONV (postoperative nausea and vomiting) Rheumatoid arthritis Screening for malignant neoplasm of intestine Sensorineural hearing loss, 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 Shortness of breath on exertion Sleep apnea Wears glasses Surgical History History of cardiac catheterization History of colonoscopy (~2014) History of coronary angioplasty History of esophagogastroduodenoscopy (EGD) (~2014) History of heart artery stent History of inguinal hernia repair History of knee joint replacement History of left shoulder replacement History of total left hip arthroplasty History of total right hip arthroplasty Hx of cholecystectomy S/P PTCA (percutaneous transluminal coronary angioplasty) Family History (Updated 04/07/23 @ 09:11 by Silva Izquierdo) Sister Cancer ovarian DiabetesBrother DiabetesMother Heart disease HypertensionFather Prostate cancer Social History (Updated 12/06/22 @ 02:[address] Henrietta Quinonez MD) household members: none Smoking Status: Never smoker alcohol intake: never substance use type: does not use HPI HPI HPI: 67-year-old gentleman is being referred by Dr Finn Ferrell for surgical consultation regarding esophageal dysphagia and a written compromise surgical consult recommendations will be returned to him.By report the patient has been having some trouble with chest pain and recently had a negative heart catheterization performed at [facility]. He was started on Ranexa for his chest pain and angina with complete relief. He is also been initiated on pantoprazole. He does note some epigastric burning and occasional difficulty with solid foods getting stuck. Among other medications he is on clopidogrel and metoprolol and minoxidil and Eliquis and isosorbide mononitrate and rosuvastatin. At the [facility] on March 29, 2023 he had a contrast upper GI study which was interpreted as normal. No hiatal hernia and a 12 mm barium tablet passed. I have personally reviewed those images. On one image there appeared to be some tertiary contractions. I had also seen him in the office October 27, 2022 and review of her thyroid nodule for which we are taking a conservative approach. In addition removing skin lesions for him previously on February 20, 2020 I assisted him with a colonoscopy. Diverticulosis and tortuous colon noted. No acute findings and repeat colonoscopy at 10 years recommended. October 30, 2019 I assisted him with a laparoscopic cholecystectomy and a suture umbilical herniorrhaphy. She is concerned because for approximately 2 years has had troubles intermittently with swallowing. He explains that even semisolid's will do it. Feels like they get stuck right at the throat. Sometimes he has to wash it down with fluid. Sometimes he will feel a sense of regurgitation. ROS General General: Yes weight change and fatigue; No appetite, colon cancer, breast cancer or weakness Additional Details: Weight has been fluctuating recently HEENT HEENT: Yes difficulty swallowing; No eye injury, eye surgery, swollen glands or hoarseness Endo Endocrine: No thyroid disease, diabetes mellitus, thyroid cancer, Hair loss, heat intolerance or cold intolerance Skin Skin: No rash or changing moles Musc Musculoskeletal: Yes rheumatoid arthritis; No back problems, arthritis, gout or joint pain Cardio Cardiovascular: Yes heart disease, atrial fibrillation, high blood pressure, heart attack and heart stent; No murmur, pacemaker, palpitations, shortness of breat with exertion or chest pain Psych Psychiatric: Yes depression and anxiety; No hearing voices Resp Respiratory: Yes shortness of breath, Yes sleep apnea, No cough, Yes COPD, No asthma, No emphysema and No wheezing Gastro Gastrointestinal: Yes abdominal pain, No nausea or vomiting, Yes diarrhea, No constipation, No blood in stool, Yes acid reflux, No hemorrhoids, No ulcers, No gallbladder problem and No black,tarry stools Flip Hematologic: Yes blood thinners, No blood disorders, No bleeding, No anemia and No blood clots Neuro Neurologic: No system reviewed and no additional complaints, except as documented, No as per HPI, No abnormal gait, No abnormal hearing, No abnormal movements, No abnormal speech, No behavioral changes, No burning sensations, No confusion, No convulsions, No disequilibrium, No dizziness, No localized weakness, No frequent falls, No headache(s), No lack of coordination, No loss of vision, No memory loss, Yes numbness, No other visual disturbances, No radicular pain, No restless legs, No sensory deficit, No syncope, Yes tingling, No tremor(s), No weakness and No other Exam Const General: cooperative, comfortable and no acute distress [facility] Head: normal to inspection Eyes General: appearance normal, both eyes and all related structures Neck Neck: normal visual inspection Resp Effort & Inspection: normal respiratory effort Auscultation: clear to auscultation bilaterally Cardio Rate: regular rate Rhythm: regular rhythm GI Inspection: normal to inspection Palpation: soft and no hepatosplenomegaly Musc Cervical Spine: normal cervical lordosis Neuro General: patient alert, patient awake and patient oriented x3 Extrem General: no calf tenderness Psych Appearance: grossly normal Assessment and Plan Assessment and Plan (1) Dysphagia: Status: Acute Qualifiers: Dysphagia type: esophageal phase Qualified Code(s): R13.19 - Other dysphagia Plan: Esophageal dysphagia. Patient does have significant cardiac disease. Not sure whether there could be any influence upon the esophagus due to cardiac enlargement. I do propose for him a esophagogastroduodenoscopy with possible biopsy. We will have him hold his Eliquis and clopidogrel 1 day prior to the procedure and likely the day of the procedure as well. He is aware of technique, benefit, risk, alternatives. Subsequent to that he might benefit from esophageal manometry pending the findings. He has had an opportunity to ask and have questions answered. He had been on amiodarone for period of time but he states that was starting to cause some renal dysfunction. Etiology regarding his esophageal dysphagia at this point somewhat undetermined. I appreciate the ongoing opportunity of assisting with his surgical care. Copy: Dr Finn Bess M.D., F.A.C.S. I have examined the patient and the H&P has been reviewed. There are no clinical changes since date of exam. Dwayne Bess M.D., F.A.C.S.
[2023-05-20 10:00] VITALS: BP 167/85; PULSE 83; RESP 16; TEMP 36.9; O2SAT 99; BMI 40.1
[2023-05-20] MEDS: Lactated Ringers 1,000 ML 15 ML IV (10:05)
--- NOTE | 2023-05-20 11:00 | IMM_PTH ---
PATHOLOGY RESULTS PATIENT: SHANNON OLSON LOC: EN U#:[id number] AGE/SX: 67/M ROOM: RE05/20/[address]: Dr. Dwayne Bess MD : 1955 BED: DIS: 05/20/2023 SPEC #: [id number] RECD: 05/20/23 13:18 STATUS: LALIT REQ #: [id number] KAILA: 05/20/23 11:[address]: Dwayne Bess DEPT: IMMUNOHISTOCHEMISTRY RECD BY: Aruna Acharya ENTERED: 05/20/23 13:19 SP TYPE: IMMUNO OTHR DR: Dr. Finn Ferrell MD Tissues: Stomach, NOS Procedures: H Pylori (initial) PHYSICIAN & INSTITUTION [place] [id number] SPECIMEN INFORMATION: Tissue Source: B - Antrum Clinical Info: Dysphagia Specimen Number: [id number] CPT code: 53140 METHODOLOGY: Deparaffinized sections of prefer/formalin-fixed tissue or PAP/DQ stained slides are incubated with monoclonal/polyclonal antibodies/oligonucleotide probes. Localization is made via biotin free immunoperoxidase method. Appropriate controls are performed and reacted as expected. Results on target cell population are indicated in the following table: RESULTS: ANTIBODY / CLONE RESULT Block B H Pylori (polyclonal) negative These tests were developed and their performance characteristics determined by [facility]. They may not have been cleared or approved by the U.S. Food and Drug Administration. The FDA has determined that such clearance or approval is not necessary. The above immunohistochemical/dualISH markers are ordered and reviewed by the Pathologist. INTERPRETATION: B. Antrum, biopsy: Negative for Helicobacter pylori organisms. AM:ashanti 05/21/2023
--- NOTE | 2023-05-20 11:00 | EGD_PTH ---
PATHOLOGY RESULTS PATIENT: SHANNON OLSON LOC: EN U#:[id number] AGE/SX: 67/M ROOM: RE05/20/[address]: Dr. Dwayne Bess MD : 1955 BED: DIS: 05/20/2023 SPEC #: [id number] RECD: 05/20/23 12:33 STATUS: LALIT KYLAH #: [id number] KAILA: 05/20/23 11:[address]: Dwayne Bess DEPT: SURGICAL PATHOLOGY RECD BY: Alicia Otto ENTERED: 05/20/23 12:34 SP TYPE: EGD BIOPSY OT DR: Dr. Finn Ferrell MD Tissues: Duodenum, NOS Gastric mucous membrane Esophageal mucous membrane Esophageal mucous membrane Procedures: Special Stain Group II Surgery Specimen Level IV Alcian Blue/PAS (control) HEADER OPERATION: EGD with biopsies PRE-OP DIAGNOSIS: Dysphagia TISSUE SUBMITTED: A - Duodenum biopsy, B - Antrum biopsy for H. pylori and path, C - Distal esophagus biopsy, D - Mid esophagus biopsy MICROSCOPIC DIAGNOSIS A. Duodenum, biopsy: Minimal nonspecific chronic inflammation. B. Gastric antrum, biopsy: Chronic gastritis. See comment. C. Distal esophagus, biopsy: Gastroesophageal junctional mucosa with mild chronic inflammation. No evidence of goblet cell metaplasia. See comment. D. Mid esophagus, biopsy: Fragments of benign squamous mucosa. No evidence of inflammation. AM:ashanti 05/21/2023 COMMENT B. The results of immunohistochemistry for Helicobacter pylori will be reported separately ([id number]). C. Alcian blue/PAS stain with matched control supports the above diagnosis. MICROSCOPIC DESCRIPTION Slides are reviewed. GROSS DESCRIPTION A - Received in fixative is one container labeled with the patient's name and designated duodenum biopsy. The specimen consists of two irregular fragments of light jc soft tissue that in aggregate measure 0.6 x 0.3 x 0.1 cm. The specimen is totally submitted in one cassette. B - Received in fixative is one container labeled with the patient's name and designated antrum biopsy. The specimen consists of multiple irregular fragments of light jc soft tissue that in aggregate measure 1.0 x 0.3 x 0.1 cm. The specimen is totally submitted in one cassette. C - Received in fixative is one container labeled with the patient's name and designated distal esophagus biopsy. The specimen consists of multiple irregular fragments of light jc soft tissue that in aggregate measure 1.0 x 0.3 x 0.1 cm. The specimen is totally submitted in one cassette. D - Received in fixative is one container labeled with the patient's name and designated mid esophagus biopsy. The specimen consists of two irregular fragments of light jc soft tissue that in aggregate measure 0.6 x 0.3 x 0.1 cm. The specimen is totally submitted in one cassette. / SJ:rg 05/20/2023 TC:3 CPT: 33755 x4, 24814
[2023-05-20 11:10] VITALS: BP 122/71; BP 167/85; PULSE 65; RESP 16; TEMP 37.2; O2SAT 96
--- NOTE | 2023-05-20 11:14 | OP.EGD_ITS ---
Patient Name: Timo Dickerson Procedure Date: 05/20/2023 10:47 AM Date of : 1955 Age: 67 Procedure: Upper GI endoscopy Indications: Dysphagia, Heartburn Providers: Dwayne Bess MD Referring MD: Finn Ferrell Medicines: See the Anesthesia note for documentation of the administered medications Complications: No immediate complications. Procedure: Pre-Anesthesia Assessment: - Prior to the procedure, a History and Physical was performed, and patient medications and allergies were reviewed. The patient's tolerance of previous anesthesia was also reviewed. The risks and benefits of the procedure and the sedation options and risks were discussed with the patient. All questions were answered, and informed consent was obtained. Prior Anticoagulants: The patient has taken Plavix (clopidogrel), last dose was 2 days prior to procedure. ASA Grade Assessment: III - A patient with severe systemic disease. After reviewing the risks and benefits, the patient was deemed in satisfactory condition to undergo the procedure. After obtaining informed consent, the endoscope was passed under direct vision. Throughout the procedure, the patient's blood pressure, pulse, and oxygen saturations were monitored continuously. The Endoscope was introduced through the mouth, and advanced to the second part of duodenum. The upper GI endoscopy was accomplished without difficulty. The patient tolerated the procedure well. Scope In: 10:54:14 AM Scope Out: 11:02:26 AM Total Procedure Duration Time 0 hours 8 minutes 12 seconds Findings: The middle third of the esophagus was normal. Biopsies were taken with a cold forceps for histology. LA Grade A (one or more mucosal breaks less than 5 mm, not extending between tops of 2 mucosal folds) esophagitis with no bleeding was found 45 cm from the incisors. Biopsies were taken with a cold forceps for histology. A small hiatal hernia was present. Diffuse moderate inflammation characterized by congestion (edema) and nodularity was found in the entire examined stomach. Biopsies were taken with a cold forceps for histology. Diffuse mildly erythematous mucosa without active bleeding and with no stigmata of bleeding was found in the duodenal bulb. Biopsies were taken with a cold forceps for histology. Impression: - Normal middle third of esophagus. Biopsied. - LA Grade A reflux esophagitis with no bleeding. Biopsied. - Small hiatal hernia. - Acute chronic bile gastritis. Biopsied. - Erythematous duodenopathy. Biopsied. Recommendation: - Discharge patient to home. - Resume previous diet. - Continue present medications. - Use sucralfate tablets 1 gram PO QID. - Telephone my office for pathology results in 1 week. Findings suggest reflux esophagitis and diffuse bile gastritis. The patient is already on a proton pump inhibitor. Will initiate Carafate 1 g orally for 4 times daily. Will await multiple biopsy results with further recommendations. The patient may resume his Eliquis and Plavix therapy tomorrow. Procedure Code(s): --- Professional --- 55464, Esophagogastroduodenoscopy, flexible, transoral; with biopsy, single or multiple Diagnosis Code(s): --- Professional --- K21.00, Gastro-esophageal reflux disease with esophagitis, without bleeding K44.9, Diaphragmatic hernia without obstruction or gangrene K29.00, Acute gastritis without bleeding K29.50, Unspecified chronic gastritis without bleeding K29.60, Other gastritis without bleeding K31.89, Other diseases of stomach and duodenum R13.10, Dysphagia, unspecified R12, Heartburn CPT copyright 2021 [employer]. All rights reserved. The codes documented in this report are preliminary and upon criminal justice social worker review may be revised to meet current compliance requirements. Dwayne Bess MD 05/20/2023 11:13:59 AM This report has been signed electronically. Number of Addenda: 0 Note Initiated On: 05/20/2023 10:47 AM
--- NOTE | 2023-05-20 11:14 | OP.CCLET_ITS ---
05/20/2023 Finn Ferrell [address] [place] [address] Re : Upper GI endoscopy procedure for Timo Dickerson Dear Dr. Ferrell This procedure was performed on April. My impressions and recommendations are as follows: Impressions : - Normal middle third of esophagus. Biopsied. - LA Grade A reflux esophagitis with no bleeding. Biopsied. - Small hiatal hernia. - Acute chronic bile gastritis. Biopsied. - Erythematous duodenopathy. Biopsied. Recommendations : - Discharge patient to home. - Resume previous diet. - Continue present medications. - Use sucralfate tablets 1 gram PO QID. - Telephone my office for pathology results in 1 week. Findings suggest reflux esophagitis and diffuse bile gastritis. The patient is already on a proton pump inhibitor. Will initiate Carafate 1 g orally for 4 times daily. Will await multiple biopsy results with further recommendations. The patient may resume his Eliquis and Plavix therapy tomorrow. My findings are described in the full procedure note, which is enclosed. If I can be of further assistance, please feel free to contact me at Doctor phone number(s): Work: . Sincerely, Dwayne Bess MD 05/20/2023 11:13:59 AM This report has been signed electronically.
[2023-05-20 11:15] VITALS: BP 124/81; BP 167/85; PULSE 62; RESP 18; O2SAT 95
[2023-05-20 11:20] VITALS: BP 128/83; BP 167/85; PULSE 61; RESP 18; O2SAT 94
[2023-05-20 11:26] VITALS: BP 136/86; BP 167/85; PULSE 57; RESP 18; TEMP 37.3; O2SAT 97
[2023-05-20 11:48] VITALS: BP 167/85
== END 2023-05-20 11:56 | disposition home or self-care (01) ==
LOC: EN 09:32 → AC 09:38
PROVIDERS: PCP Family Medicine; Referring Provider Family Medicine; Visit Provider Surgery
PROC: 0DJ08ZZ Inspection of Upper Intestinal Tract, Via Natural or Artificial Opening Endoscopic (ICD-10-PCS; CPT 43235; principal; 2023-05-20 10:55)
DX: K21.00 Gastro-esophageal reflux disease with esophagitis, without bleeding (principal); J44.9 Chronic obstructive pulmonary disease, unspecified; I25.118 Atherosclerotic heart disease of native coronary artery with other forms of angina pectoris; K44.9 Diaphragmatic hernia without obstruction or gangrene; E78.00 Pure hypercholesterolemia, unspecified; I10 Essential (primary) hypertension; K29.00 Acute gastritis without bleeding; K57.30 Diverticulosis of large intestine without perforation or abscess without bleeding; K29.60 Other gastritis without bleeding; K31.89 Other diseases of stomach and duodenum; I25.2 Old myocardial infarction; Z90.49 Acquired absence of other specified parts of digestive tract; Z95.5 Presence of coronary angioplasty implant and graft; Z79.01 Long term (current) use of anticoagulants; Z79.02 Long term (current) use of antithrombotics/antiplatelets; Z79.899 Other long term (current) drug therapy; Z86.16 Personal history of COVID-19
CPT/HCPCS: 43239; 88305; 88313; 88342; J7120; J2405

== ENCOUNTER 2023-07-05 11:44 | Emergency (ER) | payer MEDICARE, OTHER, SELFPAY ==
[2023-07-05 11:45] VITALS: BP 195/91; PULSE 72; RESP 14; TEMP 36.2; O2SAT 100; BMI 40.2
--- NOTE | 2023-07-05 12:05 | ED.VIS.GI ---
HPI HPI - GI History of Present Illness Chief Complaint: Constipation Narrative Narrative: 67-year-old male presenting with constipation x 2 days. No fevers or chills. No nausea or vomiting. Patient states he did try a stool softener with Minimal improvement. Did not try laxative. He states he drinks plenty of water and is eating plenty of fruit but not having bowel moods. He states he typically has problems with diarrhea but after his meds were changed around he is now more constipated. Patient states he is scheduled to have an upper endoscopy next week as he had trouble with acid reflux/GERD symptoms and was previously on Carafate for this. Patient is not having upper abdominal pain today at all in the lower suprapubic/periumbilical region. Patient denies black or bloody stools. He denies fevers or chills. PFSH PFS Medical History Anxiety Atrial fibrillation CAD (coronary artery disease) Cardiology follow-up encounter Chest pain Cholelithiasis with chronic cholecystitis COPD (chronic obstructive pulmonary disease) COPD (chronic obstructive pulmonary disease) Coronary atherosclerosis of [place] coronary vessel Depression Difficulty swallowing Dysphagia Epidermal inclusion cyst Esophageal reflux Excessive bleeding Gastric reflux High cholesterol History of atrial fibrillation History of echocardiogram History of edema History of heart attack history of ischemic stroke History of stress test HTN (hypertension) Hyperlipidemia Hypertension Left rotator cuff tear Leg cramps Non-smoker NSVT (nonsustained ventricular tachycardia) Obstructive sleep apnea syndrome PONV (postoperative nausea and vomiting) Rheumatoid arthritis Screening for malignant neoplasm of intestine Sensorineural hearing loss, 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 Shortness of breath on exertion Sleep apnea Wears glasses Home Medications minoxidil 10 mg tablet 5 mg PO BID blood pressure 10/05/19 [History Last Taken 05/20/23] nitroglycerin 0.4 mg sublingual tablet 0.4 mg sublingual Q5-15M PRN cp 10/05/19 [History Last Taken Unknown] atorvastatin 80 mg tablet 80 mg PO QHS #30 tabs 10/31/20 [Rx Last Taken 05/19/23] clopidogrel 75 mg tablet (Plavix) 75 mg PO DAILY 09/09/21 [History Last Taken 05/19/23] apixaban 5 mg tablet (Eliquis) 5 mg PO BID 10/30/21 [History Last Taken 05/18/23] isosorbide mononitrate 30 mg tablet,extended release 24 hr 60 mg PO DAILY 01/07/22 [History Last Taken 05/20/23] pantoprazole 40 mg tablet,delayed release (Protonix) 40 mg PO QAM #90 tabs 04/01/22 [Rx Last Taken 05/19/23] metoprolol succinate 50 mg tablet,extended release 24 hr 25 mg PO DAILY 04/07/23 [History Last Taken 05/20/23] ranolazine 1,000 mg tablet,extended release,12 hr (Ranexa) 500 mg PO BID 04/07/23 [History Last Taken 05/20/23] torsemide 20 mg tablet 20 mg PO DAILY 04/07/23 [History Last Taken 05/19/23] metoprolol tartrate 50 mg tablet 25 mg PO QHS 05/19/23 [History Last Taken 05/20/23] amiodarone 200 mg tablet 200 mg PO DAILY 05/20/23 [History Last Taken 05/20/23] sucralfate 1 gram tablet (Carafate) 1 g PO .qid #360 tabs 05/20/23 [Rx Last Taken Unknown] magnesium citrate 300 ml PO X1 #1 BOTTLE 07/05/23 [Rx Last Taken Unknown] ondansetron 4 mg disintegrating tablet 4 mg PO Q8H PRN PRN Nausea #10 tabs 07/05/23 [Rx Last Taken Unknown] Allergy/AdvReac Type Severity Reaction Status Date / Time Penicillins Allergy Hives Verified 07/05/23 11:45 Family History Sister Cancer ovarian Diabetes Brother Diabetes Mother Heart disease Hypertension Father Prostate cancer Surgical History History of cardiac catheterization History of colonoscopy (~2014) History of coronary angioplasty History of esophagogastroduodenoscopy (EGD) (~2014) History of heart artery stent History of inguinal hernia repair History of knee joint replacement History of left shoulder replacement History of total left hip arthroplasty History of total right hip arthroplasty Hx of cholecystectomy S/P PTCA (percutaneous transluminal coronary angioplasty) Social History household members: none Smoking Status: Never smoker alcohol intake: never substance use type: does not use ROS ROS ED Constitutional Constitutional ED: Denies chills, fever(s) or sweats Eyes Eyes: Denies blurry vision or change in vision ENT ENT ED: Denies ear pain or sore throat Cardiovascular Cardiovascular: Denies chest pain, palpitations or racing heartbeat Respiratory/Chest Respiratory/Chest: Denies cough, dyspnea or sputum Gastrointestinal Gastrointestinal: Reports abdominal pain and constipation; Denies diarrhea, nausea or vomiting Genitourinary Genitourinary ED: Denies dysuria, hematuria or urinary frequency Musculoskeletal Musculoskeletal: Denies arthralgias, myalgias or neck pain Integumentary Denies abscess, Abrasions or rash Neurologic Neurologic: Denies headache(s), paresthesias or weakness Psychiatric Psychiatric: Denies anxiety, depression, suicidal ideation or suicidal thoughts Endocrine Endocrinology: Denies polydipsia or polyuria EXAM Physical Exam Const Vital Signs: 07/05/23 11:45 Temperature 97.2 F L Temperature Source Temporal Pulse Rate 72 Respiratory Rate 14 Blood Pressure 195/91 H Blood Pressure Mean 125 Pulse Ox 100 Oxygen Delivery Method Room Air Positive well nourished General Appearance ED: NAD; Negative for pallor HEENT Reports moist mucous membranes normocephalic and atraumatic Eyes PERRL and EOMs intact bilaterally Resp normal respiratory effort Cardio regular rate and regular rhythm GI non-tender Palpation: tender periumbilical and suprapubic; Negative for guarding, rigid, hepatomegaly, splenomegaly or hernia Back/Spine no CVA tenderness Neuro CN's II-XII intact bilaterally Sensorium / Orientation: alert Psych mental status grossly normal and thought process normal Skin General Skin Exam: Negative for jaundice or pallor MDM MDM MDM Narrative Medical decision making narrative: Patient presenting with abdominal pain. Patient presenting with right flank pain. Differential includes colitis, diverticulitis, gastritis, pancreatitis, constipation, UTI, pyelonephritis, renal calculi, ureteral calculi, bowel obstruction, malignancy, dehydration, electrolyte abnormalities. IV access was established. Patient given a liter normal saline. After discussion we decided we would hold off on pain medication in case he is just constipated. CBC will be obtained to assess white blood cell count, hemoglobin, platelets. CMP to assess renal function, electrolytes, liver function, glucose. Lipase to assess for pancreatitis. Urinalysis to assess for UTI. Will obtain a CT of the abdomen pelvis with IV contrast. Patient requested something for nausea and was given Zofran. CBC unremarkable. CMP shows normal liver function. Creatinine slightly elevated 1.74 today. Patient was given IV fluids. Urinalysis negative for infection. CT of the abdomen pelvis with IV contrast was obtained and shows no acute findings. Given this patient we discharged home with Zofran and magnesium citrate. Return precautions discussed. Impression: 1. Abdominal pain 2. Constipation 3. Nausea Lab Data Attestation: I reviewed the patient's lab results. Labs: Laboratory Results - last 24 hr 07/05/23 07/05/23 12:20 13:02 WBC 7.8 RBC 4.45 L Hgb 12.9 L Hct 40.3 MCV 90.6 MCH 29.0 MCHC 32.0 RDW Std Deviation 47.9 H RDW Coeff of Santhosh 14.6 Plt Count 238 MPV 9.8 Immature Gran % (Auto) 0.800 Neut % (Auto) 74.9 H Lymph % (Auto) 15.2 L Jennings % (Auto) 7.1 Eos % (Auto) 1.4 Baso % (Auto) 0.6 Absolute Neuts (auto) 5.8 Absolute Lymphs (auto) 1.18 Nucleated RBC % 0 Sodium 142 Potassium 4.6 Chloride 112 H Carbon Dioxide 25.0 Anion Gap 5 BUN 37 H Creatinine 1.74 H Estim Creat Clear Calc 61.91 Est GFR (MDRD) Af Amer 51 L Est GFR (MDRD) Non-Af 42 L BUN/Creatinine Ratio 21.3 H Glucose 121 H Calcium 9.2 Total Bilirubin 1.00 AST 9 L ALT 28 Alkaline Phosphatase 97 Total Protein 7.6 Albumin 3.7 Globulin 3.9 Albumin/Globulin Ratio 0.9 Lipase 53 Urine Color Yellow Urine Clarity Clear Urine pH 6.0 Ur Specific [place] 1.015 Urine Protein Negative Urine Glucose (UA) Normal Urine Ketones Negative Urine Occult Blood Negative Urine Nitrite Negative Urine Bilirubin Negative Urine Urobilinogen Normal Ur Leukocyte Esterase Negative Urine RBC 0 SEEN Urine WBC 0 SEEN Ur Squamous Epith Cells 0 SEEN Urine Bacteria 0 SEEN Urine Mucus 0 SEEN Radiography Diagnostic Testing: Clinical Impression(s) from Imaging Studies Abdomen/Pelvis CT 07/05/23 13:20 IMPRESSION: Fatty infiltration of the liver. Small right hepatic cyst. Stable bilateral renal cysts. Electronically Signed: Beka Zuleta MD at 13:52 EST , Discharge Plan Triage Chief Complaint: Constipation ED Provider: Reynaldo Gaviria Dx/Rx/DC Orders Instructions: ED Constipation (Adult), ED Abdominal Pain Unkn Cause Male... Prescriptions: New ondansetron 4 mg tablet,disintegrating 4 mg PO Q8H PRN PRN (Reason: Nausea) Qty: 10 0RF magnesium citrate Solution 300 ml PO X1 Qty: 1 0RF No Action nitroglycerin 0.4 mg tablet, sublingual 0.4 mg SUBLINGUAL Q5-15M PRN (Reason: cp) Rx Instructions: do not exceed 3 doses per episode minoxidil 10 mg tablet 5 mg PO BID Patient Comments: TAKE ONE-HALF TABLET BY MOUTH TWICE DAILY Eliquis 5 mg tablet 5 mg PO BID pantoprazole [Protonix] 40 mg tablet,delayed release (DR/EC) 40 mg PO QAM Qty: 90 3RF ranolazine [Ranexa] 1,000 mg tablet extended release 12 hr 500 mg PO BID metoprolol succinate 50 mg tablet extended release 24 hr 25 mg PO DAILY torsemide 20 mg tablet 20 mg PO DAILY atorvastatin 80 mg Tablet 80 mg PO QHS Qty: 30 0RF clopidogrel [Plavix] 75 mg Tablet 75 mg PO DAILY isosorbide mononitrate 30 mg Tablet Extended Release 24 Hr 60 mg PO DAILY metoprolol tartrate 50 mg tablet 25 mg PO QHS amiodarone 200 mg tablet 200 mg PO DAILY Patient Comments: TAKE ONE TABLET BY MOUTH DAILY sucralfate [Carafate] 1 gram tablet 1 g PO .qid Qty: 360 0RF Primary Care Provider: Finn Ferrell Referrals: Finn Ferrell MD [Primary Care Provider] - Disposition Disposition: Home, Self Care
[2023-07-05] MEDS: 0.9% Normal Saline (1000mL) 1,000 ML 1000 ML IV (12:22)
[2023-07-05 12:44] LABS: Absolute Lymphocyte Count 1.18 X10^3/uL (0.83-4.51); Absolute Neutrophil Count 5.8 X10^3/uL (2.0-7.7); Basophil# 0.05 X10^3/uL; Basophil% 0.6 % (0-1); Eosinophil# 0.11 X10^3/uL; Eosinophils% 1.4 % (0-5); Hematocrit 40.3 % (40-54); Hemoglobin 12.9 g/dL (13.0-16.5); Lymphocyte # 1.18 X10^3/ul (0.83-4.51); Lymphocyte % 15.2 % (19-41); Mean Corpuscular Volume 90.6 fL (80-94); Mean Platelet Vol. 9.8 fl (6.2-12.0); Monocyte# 0.55 X10^3/uL; Monocyte% 7.1 % (0-10); NRBC Flagged by Analyzer 0 % (0-5); Neutrophil # 5.81 X10^3/uL (2.7-7.7); Neutrophil % 74.9 % (47-70); Platelet Count 238 K/mm3 (150-450); RBC Distribution Width CV 14.6 % (11.6-14.6); RBC Distribution Width SD 47.9 fl (35.1-43.9); Red Blood Count 4.45 M/mm3 (4.6-6.2); White Blood Count 7.8 K/mm3 (4.4-11.0)
[2023-07-05] MEDS: Ondansetron 4 MG/2 ML Vial IV (12:59)
[2023-07-05 13:02] LABS: ALB/GLOB Ratio 0.9 RATIO (0.9-2.4); AST(SGOT) 9 U/L (15-37); Alanine Aminotransfer ALT/SGPT 28 U/L (16-61); Albumin, Serum 3.7 g/dL (3.2-5.0); Alkaline Phosphatase 97 U/L (45-117); Anion Gap 5 (5-15); BUN 37 mg/dL (7-18); BUN/Creat Ratio 21.3 RATIO (10-20); Calcium,Total 9.2 mg/dL (8.5-10.1); Chloride 112 mmol/L (98-107); Creatinine, Serum 1.74 mg/dL (0.70-1.30); EST Glomerular Filtration Rate 42 mL/min (>60); Est Glom Filt Rate - Afr Amer 51 mL/min (>60); Estimated Creatinine Clearance 61.91 ml/min; Globulin 3.9 g/dL (2.2-4.2); Glucose 121 mg/dL (74-106); Lipase 53 U/L (13-75); Potassium 4.6 mmol/L (3.5-5.1); Protein, Total 7.6 g/dL (6.4-8.2); Sodium Level 142 mmol/L (136-145)
[2023-07-05 13:06] LABS: Bacteria 0 SEEN /hpf (None Seen); Mucous, Urine 0 SEEN /hpf (<or=2+); Red Blood Cells-Urine 0 SEEN /hpf (0-5); Squamous Epithelial Cells - UA 0 SEEN /hpf (0-5); White Blood Cells 0 SEEN /hpf (0-5)
[2023-07-05 13:09] LABS: Color, Urine Yellow (Yellow); Glucose, Dipstick Normal (Normal); Ketone-Dipstick Negative (Negative); Leukocyte Esterase-Dipstick Negative /ul (Negative); Nitrite-Dipstick Negative (Negative); Occult Blood-Urine Negative /ul (Negative); Protein-Dipstick Negative (Negative); Specific Gravity, Urine 1.015 (1.002-1.030); Urine Bilirubin Dipstick Negative (Negative); Urine Clarity Clear (Clear); Urine Urobilinogen Normal (Normal)
--- NOTE | 2023-07-05 13:20 | CT_ITS ---
STUDY: CT ABDOMEN AND PELVIS WITH CONTRAST REASON FOR EXAM: Male, 67 years old. Abdominal pain RADIATION DOSAGE (If Supplied By Facility): CTDIvol = ( 17.07 ) mGy, DLP = ( 1352.08 ) mGycm TECHNIQUE: Transaxial images were obtained from the dome of the diaphragm to the symphysis pubis without oral contrast. IV 100mL Isovue-300 was administered. Sagittal and coronal images were reconstructed. Individualized dose optimization techniques were used for this CT. COMPARISON: Comparison is made with prior study dated July 02, 2021. FINDINGS: Calcified granuloma in the posteromedial segment of the left lower lobe. Calcified left hilar lymph nodes. Coronary artery calcification. There is decreased attenuation of the liver consistent with steatosis. Stable 1 cm cyst in the mid portion of the right lobe of the liver. The patient is status post cholecystectomy. There are multiple benign calcified granulomata of the spleen. Normal pancreas. Normal bilateral adrenal glands. Stable small bilateral renal cysts. Normal visualized stomach. Normal small intestine. There are scattered colonic diverticula consistent with diverticulosis. The appendix is visualized and appears normal. There is diffuse atherosclerotic calcification of the abdominal aorta, without a demonstrated aneurysm. Normal inferior vena cava. Normal retroperitoneum. Normal urinary bladder. Normal abdominal wall. The patient is status post bilateral total hip replacement causing beam hardening artifacts with limited visualization of the pelvis. Grade 1 retrolisthesis of L5 on S1 and L4 on L5. CT/Abdomen/Pelvis W IV Cont ONLY IMPRESSION: Fatty infiltration of the liver. Small right hepatic cyst. Stable bilateral renal cysts. Electronically Signed: Beka Zuleta MD at 13:52 EST ,
[2023-07-05 14:00] VITALS: BP 136/65; O2SAT 95
[2023-07-05 14:21] VITALS: BP 136/67; PULSE 78; RESP 16; O2SAT 98
== END 2023-07-05 14:25 | disposition home or self-care (01) ==
PROVIDERS: Emergency Provider Student in an Organized Health Care Education/Training Program; PCP Family Medicine; Visit Provider Student in an Organized Health Care Education/Training Program
DX: K59.00 Constipation, unspecified (principal); I48.91 Unspecified atrial fibrillation; I25.10 Atherosclerotic heart disease of native coronary artery without angina pectoris; I25.2 Old myocardial infarction; I10 Essential (primary) hypertension; Z95.5 Presence of coronary angioplasty implant and graft; Z79.02 Long term (current) use of antithrombotics/antiplatelets; Z79.899 Other long term (current) drug therapy; Z86.73 Personal history of transient ischemic attack (TIA), and cerebral infarction without residual deficits
CPT/HCPCS: 74177; 80053; 81001; 83690; 85025; 96361; 96374; 99283; Q9967; A4216; J2405

== ENCOUNTER 2023-07-09 07:03 | Day surgery (SDC) | payer MEDICARE, OTHER, SELFPAY ==
--- OUTSIDE RECORDS SUMMARY | 2023-07-09 07:08 | XMS RPT_ITS | CCD ---
Author Name Unknown Address [address] [place] [address] Organization [facility] Care Team Providers Care Tool Dresser Name Role Phone Elizabeth Logan MD Primary Care Provider ELIZABETH LOGAN Primary Care Unavailable CAMPBELL GONZALES Attending Unavailable ELIZABETH LOGAN Primary Care Unavailable CAMPBELL GONZALES Attending Unavailable ELIZABETH LOGAN Primary Care Unavailable DOLORES PAT Attending Unavailable ELIZABETH LOGAN Primary Care Unavailable WILMAR PELAEZ Attending Unavailable ELIZABETH LOGAN Primary Care Unavailable CAMPBELL GONZALES Attending Unavailable ELIZABETH LOGAN Primary Care Unavailable ANTWAN, SY Referring Unavailable ANTWAN, SY Attending Unavailable ELIZABETH LOGAN Primary Care Unavailable ANTWAN, SY Attending Unavailable ELIZABETH LOGAN Primary Care Unavailable TREE GONZALES Attending Unavailable ELIZABETH LOGAN Primary Care Unavailable ANTWAN, SY Attending Unavailable ELIZABETH LOGAN Primary Care Unavailable TREE GONZALES Referring Unavailable TREE GONZALES Attending Unavailable ELIZABETH LOGAN Primary Care Unavailable MIKAYLA SPAIN Attending Unavailable ELIZABETH LOGAN Primary Care Unavailable JESUSLA, SY Attending Unavailable ELIZABETH LOGAN Primary Care Unavailable BI, DRAGANINE Referring Unavailable DRAGAN PATINE Attending Unavailable ELIZABETH LOGAN Primary Care Unavailable MIKAYLA SPAIN Attending Unavailable ELIZABETH LOGAN Primary Care Unavailable MIKAYLA SPAIN Attending Unavailable ELIZABETH LOGAN Primary Care Unavailable MIKAYLA SPAIN Attending Unavailable ELIZABETH LOGAN Primary Care Unavailable DRAGAN PATINE Attending Unavailable ELIZABETH LOGAN Primary Care Unavailable TREE GONZALES Attending Unavailable ELIZABETH LOGAN Primary Care Unavailable CAMPBELL GONZALES Referring Unavailable CAMPBELL GONZALES Attending Unavailable ELIZABETH LOGAN [facility] Unavailable MIKAYLA SPAIN Attending Unavailable ASHLEY EDGAR Attending Unavailable FRANCO SMITH Consulting Unavailable SERENA DREW Admitting Unavailable ELIZABETH LOGAN [facility] Unavailable LUCIE [place] Referring Unavailable MALIK SUAREZ Consulting Unavailable ELIZABETH LOGAN [facility] Unavailable CAMPBELL GONZALES Attending Unavailable CAMPBELL GONZALES Admitting Unavailable ELIZABETH LOGAN [facility] Care Unavailable CAMPBELL GONZALES Referring Unavailable CAMPBELL GONZALES Attending Unavailable Allergies Allergy Classification Reported Allergen(s) Allergy Type Date of Onset Reaction(s) Facility (20 sources) Penicillins Drug Intolerance 05-07-2005 Rash [facility] Medications Current Medications Medication Drug Class(es) Dates Sig (Normalized) Sig (Original) amiodarone hydrochloride 200 mg oral tablet (20 sources) Antiarrhythmic Start: 10-30-2021 End: 03-18-2023 take 1 tablet by mouth once daily amiodarone (Pacerone) 200 MG tablet Take 1 tablet (200 mg) by mouth daily. 90 tablet 1 03/18/2023 Active apixaban 5 mg oral tablet (20 sources) Factor Xa Inhibitor Start: 01-18-2023 End: 03-18-2024 take 1 tablet by mouth twice daily apixaban (Eliquis) 5 MG tablet Indications: Paroxysmal atrial fibrillation (HCC) Take 1 tablet (5 mg) by mouth 2 times daily. 180 tablet 3 03/19/2023 03/18/2024 Active Completed/Discontinued Medications Medication Drug Class(es) Dates Sig (Normalized) Sig (Original) Acetaminophen (2 sources) Start: 12-06-2022 End: 12-08-2022 take 1 tablet by mouth every six hours as needed for pain and fever acetaminophen (Tylenol) tablet 650 mg albuterol 0.833 mg/ml / ipratropium bromide 0.167 mg/ml inhalation solution (2 sources) Anticholinergic, beta2-Adrenergic Agonist Start: 12-07-2022 End: 12-08-2022 ipratropium-albute rol (Duo-Neb) 0.5-2.5 mg/3 mL nebulizer solution 3 mL amLODIPine 10 mg oral tablet (17 sources) Dihydropyridine Calcium Channel Delia Start: 01-27-2022 End: 12-08-2022 take 10 mg by mouth once daily 10 mg, Oral, Daily, First dose on 12/06/22 at 1045 aspirin 81 mg chewable tablet (2 sources) Platelet Aggregation Inhibitor, Nonsteroidal Anti-inflammatory Drug Start: 12-06-2022 End: 12-07-2022 take 81 mg by mouth once daily 81 mg, Oral, Daily, First dose on 12/06/22 at 1045 atorvastatin 80 mg oral tablet (17 sources) HMG-CoA Reductase Inhibitor Start: 01-27-2022 End: 12-08-2022 take 80 mg by mouth once daily 80 mg, Oral, Daily, First dose on 12/06/22 at 2100 cholecalciferol 0.01 mg oral tablet (20 sources) Vitamin D Start: 12-06-2022 End: 12-08-2022 take 800 [IU] by mouth once daily 800 Units, Oral, Daily, First dose on 12/06/22 at 1045 Problems Active Problems Problem Classification Problem Date Documented Da te Episodic/Chronic Acute myocardial infarction (20 sources) Myocardial infarction; Translations: [Non-ST elevation (NSTEMI) myocardial infarction] Onset: 02-13-2016 03-07-2022 Chronic Cardiac dysrhythmias (20 sources) Paroxysmal atrial fibrillation; Translations: [Paroxysmal atrial fibrillation] Onset: 05-26-2016 Chronic Chronic kidney disease (18 sources) Chronic kidney disease stage 3A ; Translations: [Stage 3a chronic kidney disease (HCC)] Onset: 02-02-2023 02-02-2023 Chronic Chronic kidney disease (2 sources) Chronic kidney disease; Translations: [Chronic kidney disease, stage 3a (HCC)] Onset: 02-02-2023 Chronic obstructive pulmonary disease and bronchiectasis (20 sources) Chronic obstructive lung disease; Translations: [Chronic obstructive pulmonary disease, unspecified] Onset: 02-13-2016 Chronic Congestive heart failure; nonhypertensive (18 sources) Chronic diastolic heart failure; Translations: [Chronic diastolic (congestive) heart failure] Onset: 10-29-2022 03-16-2023 Chronic Coronary atherosclerosis and other heart disease (20 sources) Coronary arteriosclerosis; Translations: [Atherosclerotic heart disease of sokaogon coronary artery without angina pectoris] Onset: 07-17-2020 Chronic Disorders of lipid metabolism (20 sources) Hyperlipidemia; Translations: [Hyperlipidemia, unspecified] Onset: 02-13-2016 03-07-2022 Chronic Essential hypertension (20 sources) Essential hypertension; Translations: [Essential (primary) hypertension] Onset: 02-01-2009 Chronic Hypertension with complications and secondary hypertension (9 sources) Chronic kidney disease due to hypertension; Translations: [Hypertensive chronic kidney disease with stage 1 through stage 4 chronic kidney disease, or unspecified chronic kidney disease] Onset: 03-03-2023 03-03-2023 Chronic Other connective tissue disease (9 sources) History of total replacement of right hip joint; Translations: [Presence of right artificial hip joint] Onset: 06-17-2020 03-03-2023 Chronic Other connective tissue disease (9 sources) Artificial knee joint present; Translations: [Presence of unspecified artificial knee joint] Onset: 06-17-2020 03-03-2023 Chronic Other diseases of kidney and ureters (1 source) Renal impairment; Translations: [Disorder of kidney and ureter, unspecified] 12-08-2022 Episodic Other nutritional; endocrine; and metabolic disorders (20 sources) Obesity; Translations: [Obesity, unspecified] Onset: 03-24-2021 03-07-2022 Chronic Residual codes; unclassified (20 sources) Obstructive sleep apnea syndrome; Translations: [Obstructive sleep apnea (adult) (pediatric)] Onset: 05-26-2016 03-07-2022 Chronic Residual codes; unclassified (2 sources) Obstructive sleep apnea (adult) (pediatric); Translations: [Obstructive sleep apnea (adult) (pediatric)] Onset: 03-07-2022 Chronic Thyroid disorders (2 sources) Hypothyroidism due to medicaments and other exogenous substances; Translations: [Hypothyroidism due to medicaments and other exogenous substances] Onset: 10-29-2022 Chronic Past or Other Problems Problem Classification Problem Date Documented Da te Episodic/Chronic Acute and unspecified renal failure (2 sources) Acute kidney failure, unspecified; Translations: [Acute kidney failure, unspecified (HCC)] Onset: 10-29-2022 Episodic Biliary tract disease (9 sources) Gallstone; Translations: [Calculus of gallbladder without cholecystitis without obstruction] Onset: 11-18-2010 03-03-2023 Episodic Coronary atherosclerosis and other heart disease (5 sources) History of cardiovascular surgery; Translations: [Presence of coronary angioplasty implant and graft] Onset: 02-02-2023 01-27-2023 Episodic Diabetes mellitus without complication (9 sources) Impaired fasting glycemia; Translations: [Impaired fasting glucose] Onset: 04-30-2009 03-03-2023 Episodic Miscellaneous mental health disorders (3 sources) Disorders of initiating and maintaining sleep; Translations: [Adjustment insomnia] Onset: 11-11-2022 11-11-2022 Episodic Nonspecific chest pain (20 sources) Chest pain; Translations: [Chest pain, unspecified] Onset: 09-15-2019 03-07-2022 Episodic Other aftercare (20 sources) Long-term current use of drug therapy; Translations: [Other chcf (current) drug therapy] Onset: 05-26-2016 03-07-2022 Episodic Other aftercare (20 sources) Long-term current use of anticoagulant; Translations: [correction (current) use of anticoagulants] Onset: 05-26-2016 03-07-2022 Episodic Other aftercare (2 sources) bed bug exterminator (current) use of anticoagulants; Translations: [bed bug exterminator (current) use of anticoagulants] Onset: 03-07-2022 Episodic Other lower respiratory disease (20 sources) Dyspnea on exertion; Translations: [Other forms of dyspnea] Onset: 03-26-2021 Episodic Other lower respiratory disease (2 sources) Shortness of breath; Translations: [Shortness of breath] Onset: 11-02-2022 Episodic Other lower respiratory disease (2 sources) Other forms of dyspnea; Translations: [Other forms of dyspnea] Onset: 03-07-2022 Episodic Residual codes; unclassified (20 sources) Localized edema; Translations: [Localized edema] Onset: 09-28-2022 Episodic Residual codes; unclassified (20 sources) History of cardiac catheterization; Translations: [Other specified postprocedural states] Onset: 03-17-2021 03-07-2022 Episodic Residual codes; unclassified (1 source) Localized edema; Translations: [Localized edema] Onset: 09-28-2022 Episodic Results Test Name Value Interpretation Reference Range Facil ity Vital Signs Date Time Vital Sign Value Performing Clinician Liana angelo 06-17-2023 11:55-0500 Diastolic blood pressure 70 mm[Hg] Mikayla Johnson CNP Work Phone: [facility] 06-17-2023 11:55-0500 Systolic blood pressure 110 mm[Hg] Mikayla Spain LOSS PREVENTION INVESTIGATOR - DISC SANDER Work Phone: [facility] [employer] 06-17-2023 10:02-0500 Body height 189.2 cm Mikayla Spain LOSS PREVENTION INVESTIGATOR - DISC SANDER Work Phone: [facility] [employer] 06-17-2023 10:02-0500 Body mass index (BMI) [Ratio] 38.86 kg/m2 Mikayla Spain LOSS PREVENTION INVESTIGATOR - DISC SANDER Work Phone: [facility] [employer] 06-17-2023 10:02-0500 Body weight 139.16 kg Mikayla Spain LOSS PREVENTION INVESTIGATOR - DISC SANDER Work Phone: [facility] [employer] 06-17-2023 10:02-0500 Heart rate 66 /min Mikayla Spain LOSS PREVENTION INVESTIGATOR - DISC SANDER Work Phone: [facility] [employer] 06-17-2023 10:02-0500 SaO2% (BldA) [Mass fraction] 94 % Mikayla Spain LOSS PREVENTION INVESTIGATOR - DISC SANDER Work Phone: [facility] [employer] 05-10-2023 10:12-0500 Body height 189.2 cm Tree Gonzales MD Work Phone: [facility] [employer] 05-10-2023 10:12-0500 Body mass index (BMI) [Ratio] 38.88 kg/m2 Tree Gonzales MD Work Phone: [facility] [employer] 05-10-2023 10:12-0500 Body weight 139.16 kg Tree Gonzales MD Work Phone: [facility] [employer] 05-10-2023 10:12-0500 Diastolic blood pressure 86 mm[Hg] Tree Gonzales MD Work Phone: [facility] [employer] 05-10-2023 10:12-0500 Heart rate 52 /min Tree Gonzales MD Work Phone: [facility] [employer] 05-10-2023 10:12-0500 Respiratory rate 18 /min Tree Gonzales MD Work Phone: [facility] [employer] 05-10-2023 10:12-0500 SaO2% (BldA) [Mass fraction] 92 % Tree Gonzales MD Work Phone: [facility] Encounters Encounter Date Encounter Type Care Provider Facility Start: 06-30-2023 End: 06-30-2023 ambulatory [facility] Start: 06-30-2023 End: 06-30-2023 ambulatory [facility] Start: 06-17-2023 End: 06-17-2023 ambulatory [facility] Start: 06-17-2023 End: 06-17-2023 Office outpatient visit 25 minutes Mikayla Johnson CNP Work Phone: [facility] Cardiology Procedures Date Procedure Procedure Detail Performing Clinician Start: 06-30-2023 Follow-up visit Follow-up SY VENCESDAGORYLEE Start: 03-01-2023 Cardiac catheterization study Campbell Gonzales MD Work Phone: Start: 02-23-2023 Ecg routine ecg w/least 12 lds w/i&r Campbell Gonzales MD Work Phone: Start: 02-19-2023 Lipid 1996 panel - Serum or Plasma Mikayla Johnson CNP Work Phone: Start: 02-02-2023 Ecg routine ecg w/least 12 lds trcg only w/o i&r Campbell Gonzales MD Work Phone: Start: 12-30-2022 Basic metabolic 2000 panel - Serum or Plasma Mikayla Johnson CNP Work Phone: Start: 12-07-2022 End: 12-08-2022 Basic metabolic panel calcium total Ashley Edgar MD Work Phone: Start: 12-08-2022 C-reactive protein Ashley Edgar MD Work Phone: Start: 12-07-2022 Us retroperitoneal real time w/image limited Ashlye Edgar MD Work Phone: Start: 12-07-2022 Urnls dip stick/tablet rgnt auto w/o microscopy Ashley Edgar MD Work Phone: Start: 12-07-2022 Iadna respiratry probe & rev trnscr 12-25 target Ashley Edgar MD Work Phone: Start: 12-07-2022 Radiologic exam chest single view Ashley Edgar MD Work Phone: Start: 12-07-2022 Ecg routine ecg w/least 12 lds trcg only w/o i&r Serena Drew MD Work Phone: Start: 12-07-2022 Lipid 1996 panel - Serum or Plasma Sy Boyce MD Work Phone: Start: 12-07-2022 Comprehensive metabolic panel Serena Drew MD Work Phone: Start: 12-07-2022 Lipid panel Serena Drew MD Work Phone: Start: 12-06-2022 Ecg routine ecg w/least 12 lds trcg only w/o i&r Serena Drew MD Work Phone: Start: 12-06-2022 Assay of troponin quantitative Serena Drew MD Work Phone: Start: 11-18-2022 Echo tthrc r-t 2d w/wom-mode compl spec&colr d Sadine D Oredein LOSS PREVENTION INVESTIGATOR - DISC SANDER Work Phone: Start: 10-29-2022 Thyrotropin [Units/volume] in Serum or Plasma Sy Boyce MD Work Phone: Start: 09-28-2022 Ecg routine ecg w/least 12 lds w/i&r Campbell Gonzales MD Work Phone: Start: 10-31-2021 Thyrotropin [Units/volume] in Serum or Plasma Sadine Oredein LOSS PREVENTION INVESTIGATOR - DISC SANDER Work Phone: Start: 08-05-2021 Lipid 1996 panel - Serum or Plasma Sadine Oredein LOSS PREVENTION INVESTIGATOR - DISC SANDER Work Phone: Start: 06-17-2020 H/O: artificial joint Presence of left artificial shoulder joint Mikayla Spain LOSS PREVENTION INVESTIGATOR - DISC SANDER Work Phone: Start: 06-17-2020 History of operative procedure on knee History of knee joint replacement Mikayla Valle LOSS PREVENTION INVESTIGATOR - DISC SANDER Work Phone: Start: 06-17-2020 History of placement of stent for coronary artery disease History of coronary artery stent placement Mikayla Valle LOSS PREVENTION INVESTIGATOR - DISC SANDER Work Phone: Plan of Treatment Date Care Activity Detail Author Start: 02-20-2028 Lipid panel Lipid Panel [facility] [employer] Start: 12-08-2027 Lipid panel Lipid Panel [facility] [employer] Start: 08-05-2026 Lipid panel Lipid Panel [facility] [employer] Start: 04-09-2024 Creatinine measurement Creatinine Level [facility] [employer] Start: 04-09-2024 Potassium measurement Potassium Level [facility] [employer] Start: 02-20-2024 Creatinine measurement Creatinine Level [facility] [employer] Start: 02-20-2024 Potassium measurement Potassium Level [facility] [employer] Start: 01-30-2024 Creatinine measurement Creatinine Level [facility] [employer] Start: 01-30-2024 Potassium measurement Potassium Level [facility] [employer] Start: 12-09-2023 Creatinine measurement Creatinine Level [facility] [employer] Start: 12-09-2023 Potassium measurement Potassium Level [facility] Start: 12-08-2023 Creatinine measurement Creatinine Level [facility] Start: 12-08-2023 Potassium measurement Potassium Level [facility] Start: 12-04-2023 Creatinine measurement Creatinine Level [facility] [employer] Start: 12-04-2023 Potassium measurement Potassium Level [facility] [employer] Start: 11-19-2023 Echocardiography Echocardiogram [facility] [employer] Start: 10-30-2023 Creatinine measurement Creatinine Level [facility] [employer] Start: 10-30-2023 Potassium measurement Potassium Level [facility] [employer] Start: 10-30-2023 Thyroid stimulating hormone measurement TSH Level [facility] [employer] Start: 07-29-2023 End: 07-29-2023 Patient encounter procedure 07/29/2023 11:00 AM EST Office Visit [facility] [employer] [facility] Cardiology [address] [place] [id number] Mikayla Spain APRN - DISC SANDER [address] [address] [facility] Start: 06-30-2023 End: 06-30-2023 Patient encounter procedure [facility] Start: 06-17-2023 End: 06-17-2023 Patient encounter procedure [facility] Start: 05-10-2023 End: 05-10-2023 Patient encounter procedure 05/10/2023 1:30 PM EST Office Visit [facility] [address] [place] [id number] Tree Gonzales MD [address] [place] [address] [facility] Start: 05-10-2023 End: 05-10-2023 Patient encounter procedure 05/10/2023 10:30 AM EST Office Visit [facility] [address] [place] [id number] Tree Gonzales MD [address] [place], [place] [id number] [facility] Start: 04-22-2023 End: 04-08-2024 Basic metabolic 1998 panel - Serum or Plasma Basic metabolic panel Lab Routine CAD in sokaogon artery PAF (paroxysmal atrial fibrillation) (HCC) Expected: 04/22/2023 (Approximate), Expires: 04/08/2024 [facility] Work Phone: Payers Date Payer Category Payer Unknown [employer] [facility] MEDICARE SUPPLEMENT [id number] 2021-Present [address] [place] [address] Supplement [id number] 2021 Unknown [id number] 2020 Medicare MEDICARE MEDICAR E PART A AND B [id number] 2020-Present [address] [place] [address] Medicare [id number] 2020 Medicare [id number] Social History Date Type Detail Facility Tobacco smoking status NHIS Never smoked tobacco [facility] Start: 09-28-2022 End: 06-17-2023 Alcohol intake Ex-drinker (finding) [facility] Start: 1955 Sex Assigned At Not on file [facility] Start: 09-18-2022 End: 02-02-2023 Exposure to SARS-CoV-2 (event) Not sure [facility] Start: 11-11-2022 End: 06-30-2023 History of Social function [facility] Start: 11-11-2022 End: 06-30-2023 Tobacco use panel [facility] Within the last year , have you been afraid of your partner or ex-partner? No [facility] Clinical Notes 09-26-2020 to 06-30-2023 Mikayla Spain APRN [facility] - 06/17/2023 10:00 AM Brandon Spain APRN [facility] - 06/17/2023 10:00 AM ESTPatient InstructionsTree Gonzales MD - 05/10/2023 10:30 AM ESTPatient Instructions Note Date & Type Note Facility 06-30-2023 Note Stop minoxidil. 2. Add amlodipine 5 mg daily, take in the, morning. Call us if they want you to hold Eliquis or Plavix for GI procedure. [facility] 06-17-2023 History of Present illness Narrative [facility] Cardiology [facility] [address] [facility] [address] Dept: [phone] Dept Loc: [phone] Visit type: Established : 1955 Chief Complaint: Chief Complaint Patient presents with Follow-up Chest Pain Dizziness Shortness of Breath History of Present Illness: Shannon Dickerson is a 67 y.o. male , followed by Dr Gonzales with a history of CAD, multiple stents, stable angina, diastolic heart failure, PAF with chronic OAC, HLP, HTN, HIPOLITO and COPD. Due to abdominal cramping, Ranexa was reduced to 500 mg bid. Since he was last seen he has undergone GI evaluation. He had some polyps removed, as well as esophageal dilatation. He states he is now having difficulty swallowing again, and has been unsuccessful in contacting the teacher specialist. He has not lost a significant amount of weight. He continues to have belching and fullness in his chest which is difficult for him to differentiate from his typical angina pain. Most recently he has developed dizziness. In fact today he had his friend drive him to his office visit. He woke up yesterday with a fullness in his head and sneezing. He denies any fever or chills or cough. He has dyspnea on exertion. He uses sublingual nitroglycerin as needed the last time was approximately 2 weeks ago. His abdominal cramping resolved with the reduction of Ranexa. He has not required any extra diuretic therapy. His weight has remained relatively stable. He denies orthopnea. His blood pressure is on the low side today, which is uncharacteristic for him. He was successful in finding a sleep apnea mass that was comfortable for him, unfortunately he was required to return this back to the company after 90-day use. He has a follow-up in a couple weeks with the radiotelegraphist. Past Medical History: Past Medical History: Diagnosis Date Angina pectoris ([facility]) Anxiety Arrhythmia A-fib Asthma CAD (coronary artery disease) Cerebral artery occlusion with cerebral infarction ([facility]) COPD (chronic obstructive pulmonary disease) ([facility]) Depression WATTS (dyspnea on exertion) Fatigue GERD (gastroesophageal reflux disease) History of cardioversion 05/07/2016 Successful conversion of a-fib to SR History of left heart catheterization 05/07/2016 60% stenosis right posterior descending, patent stents in prox, mid & distal RCA, patent stents in med LCx. Findings unchanged from previous study. 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 NSTEMI (non-ST elevated myocardial infarction) ([facility]) ([facility]) 12/2012 NSTEMI (non-ST elevated myocardial infarction) ([facility]) ([facility]) 05/2014 Obesity [place] (myocardial infarction) HIPOLITO (obstructive sleep apnea) HIPOLITO on CPAP PAF (paroxysmal atrial fibrillation) ([facility]) Rheumatoid arthritis(714.0) ([facility]) ST segment elevation myocardial infarction (STEMI) of anterolateral wall, subsequent episode of care ([facility]) ([facility]) TIA (transient ischemic attack) Past Surgical History Past Surgical History: Procedure Laterality Date CAPSULOTOMY, HAND 05/07/2016 CARDIAC CATHETERIZATION N/A 03/01/2023 Performed by Campbell Gonzales MD at [facility] Cardiac Cath/EP Lab CARDIAC PROCEDURE Left 05/2015 CARDIAC PROCEDURE Left 06/03/2017 CARDIAC PROCEDURE Bilateral 01/2010 CARDIAC PROCEDURE Left 09/05/2019 PCI to distal RCA and PL branch CHOLECYSTECTOMY 10/30/2019 CORONARY ANGIOPLASTY WITH STENT PLACEMENT Left 11/2006 restent RCA, FLAKO to CX CORONARY ANGIOPLASTY WITH STENT PLACEMENT Left 05/2014 PTCA /cuttung balloon to instent restenosis RCA CORONARY ANGIOPLASTY WITH STENT PLACEMENT Left 10/2006 DESto prox Rt PAV, mid & dist RCA CORONARY ANGIOPLASTY WITH STENT PLACEMENT Left 11/2014 FLAKO to RCA CORONARY ANGIOPLASTY WITH STENT PLACEMENT Left 10/2007 FLAKO to Prox Rt PAV, mid-dist RCA CORONARY ANGIOPLASTY WITH STENT PLACEMENT Left 03/2009 FLAKO to mid RCA CORONARY ANGIOPLASTY WITH STENT PLACEMENT Left 12/01/2021 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/PCI to prox RCA CORONARY ANGIOPLASTY WITH STENT PLACEMENT Left 10/2013 FLAKO to prox & mid RCA CORONARY ANGIOPLASTY WITH STENT PLACEMENT Left 12/2007 FLAKO to LAD CORONARY ANGIOPLASTY WITH STENT PLACEMENT Bilateral 03/17/2021 Flako to the Mid RCA, and the Distal RCA CORONARY ANGIOPLASTY WITH STENT PLACEMENT Left 12/2012 FLAKO to mid RCA & prox-mid Rt GRACE JOINT REPLACEMENT 03/2019 TOTAL HIP ARTHROPLASTY Left 12/2012 Family History Family History Problem Relation Name Age of Onset Diabetes Paternal Grandmother Diabetes Maternal Grandfather Cancer Sister Hypertension Mother Diabetes Sister Diabetes Paternal Grandfather Heart disease Paternal Grandmother Heart disease Paternal Grandfather Cancer Father Diabetes Brother Social History Social History Tobacco Use Smoking status: Never Smokeless tobacco: Never Substance Use Topics Alcohol use: Not Currently Drug use: No Allergies: Allergies Allergen Reactions Penicillins Rash Medications: Current Outpatient Medications Medication Instructions amiodarone (PACERONE) 200 mg, Oral, Daily cholecalciferol (VITAMIN D-3) 800 Units, Oral, Daily clopidogrel (PLAVIX) 75 mg, Oral, Daily Eliquis 5 mg, Oral, 2 times daily isosorbide mononitrate ER (IMDUR) 120 mg, Oral, Daily, Do not crush or chew. metoprolol tartrate (LOPRESSOR) 25 mg, Oral, 2 times daily minoxidil (LONITEN) 5 mg, Oral, 2 times daily nitroglycerin (Nitrostat) 0.[address] 1 tablet under the tongue every 5 minutes as needed for Chest pain. If no relief after 3 tablets, call 9-1-1 immediately. pantoprazole (PROTONIX) 40 mg, Oral, Daily before breakfast, Do not crush, chew, or split. ranolazine (RANEXA) 500 mg, Oral, 2 times daily, Do not crush, chew, or split. rosuvastatin (CRESTOR) 40 mg, Oral, Daily spironolactone (ALDACTONE) 25 mg, Oral, 2 times daily torsemide (DEMADEX) 20 mg, Oral, Daily, Patient was also instructed to take additional 20 mg torsemide, if weight gain of more than 2 pounds in 1 day. Physical Examination: Vitals: Vitals: 06/17/23 1002 BP: 106/62 BP Location: Right arm Patient Position: Sitting BP Cuff Size: Large adult Pulse: 66 SpO2: 94% Weight: (!) 306 lb 12.8 oz (139 kg) Height: 6' 2.5 (1.892 m) Body mass index is 38.86 kg/m . Physical Exam Constitutional: Appearance: Normal appearance. He is morbidly obese. HENT: Head: Normocephalic. Eyes: General: No scleral icterus. Right eye: No discharge. Left eye: No discharge. Neck: Vascular: No carotid bruit or JVD. Cardiovascular: Rate and Rhythm: Normal rate and regular rhythm. Pulses: Normal pulses. Radial pulses are 2+ on the right side. Heart sounds: Normal heart sounds. No murmur heard. Pulmonary: Effort: Pulmonary effort is normal. Breath sounds: Normal breath sounds. Abdominal: General: Abdomen is protuberant. Bowel sounds are normal. Palpations: Abdomen is soft. Tenderness: There is no abdominal tenderness. Musculoskeletal: General: Normal range of motion. Cervical back: Normal range of motion. Right lower leg: No edema. Left lower leg: No edema. Skin: General: Skin is warm and dry. Capillary Refill: Capillary refill takes less than 2 seconds. Neurological: Mental Status: He is alert and oriented to person, place, and time. Psychiatric: Mood and Affect: Mood normal. Laboratory Tests: Lab Results Component Value Date WBC 7.4 02/22/2023 HGB 11.0 (L) 02/22/2023 HCT 32.9 (L) 02/22/2023 MCV 90.8 02/22/2023 PLT 249 02/22/2023 Lab Results Component Value Date GLUCOSE 153 (A) 02/19/2023 CALCIUM 8.5 04/09/2023 NA 142 04/09/2023 K 4.1 04/09/2023 CO2 28 04/09/2023 CL 112 (A) 04/09/2023 BUN 25 04/09/2023 CREATININE 1.50 (A) 04/09/2023 NT PRO BNP Date Value Ref Range Status 09/05/2019 645 (H) 0 - 125 pg/mL Final Lab Results Component Value Date CHLPL 144 08/05/2021 CHLPL 155 06/07/2019 CHOL 135 02/19/2023 CHOL 251 (H) 12/07/2022 Lab Results Component Value Date TRIG 190 (A) 02/19/2023 TRIG 227 (H) 12/07/2022 TRIG 132 08/05/2021 Lab Results Component Value Date HDL 47 02/19/2023 HDL 37 (L) 12/07/2022 HDL 49 08/05/2021 LDL- 50 Cardiac Tests: ECG: Encounter Date: 02/22/23 ECG 12 lead - CLINIC PERFORMED Narrative Sinus Rhythm ABNORMAL Inferior myocardial infarction Last Echo: 11/18/2022 Interpretation Summary Left Ventricle: Left ventricle size is normal. Moderately increased wall thickness. Normal left ventricular systolic function. The EF by visual approximation is 55%. Moderate hypokinesis of the following segments: basal inferolateral. Akinesis of the following segments: basal inferior. Right Ventricle: Right ventricle size is normal. Normal systolic function. Left Atrium: Left atrium is mildly dilated. Aorta: Normal sized sinuses of Valsalva. Moderately dilated ascending aorta. Ao ascending diameter is 4.5 cm. No significant valvular abnormalities. Last cardiac catheterization: 03/01/2023 Conclusion Impression: 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 of mid RCA that was previously treated with angioplasty in 11/2021 In-stent restenosis of mid RCA ( 100 % occlusion mid with prior intervention with small distal territory - now left to right collaterals) Patent Lcx and LAD stents Non-obstructive CAD of the Lcx and LAD Plan: - Continue optimal medical management of CAD and HTN - Will add anti-anginal medications for stable angina -Ranolazine will be added Assessment and Plan: 1. CAD in [place] artery with Stable angina: His angina seems to be well-controlled. We will continue his present medication regimen which includes Imdur 60 mg daily, metoprolol 25 mg twice a day, Ranexa 500 mg twice daily, and Plavix 75 mg daily. He will continue to use sublingual lingual nitroglycerin as needed. 2. Chronic diastolic heart failure (HCC) He is euvolemic today. In fact he is mildly orthostatic, I will not change his diuretic therapy but I will adjust his minoxidil dose. 3. Essential hypertension, benign Blood pressure is unusually low for him today. He reports dizziness, which he is somewhat attributing to sinus issues. I have asked him to reduce his minoxidil to 5 mg daily. I will reassess him in approximately 2 weeks when he returns for his sleep apnea visit. He was advised to monitor his blood pressure at home and to call with any elevations or worsening angina. 4. PAF (paroxysmal atrial fibrillation) (HCC) Continues on amiodarone 200 daily, as well as apixaban 5 mg twice a day. 5. Mixed hyperlipidemia LDL at goal, continue rosuvastatin 40 mg daily. documented in this encounter [facility] 06-17-2023 History of Present illness Narrative [facility] Cardiology [facility] [address] [place] [id number] Dept: [phone] Dept Loc: [phone] Visit type: Established : 1955 Chief Complaint: Chief Complaint Patient presents with Follow-up Chest Pain Dizziness Shortness of Breath History of Present Illness: Shannon Dickerson is a 67 y.o. male , followed by Dr Gonzales with a history of CAD, multiple stents, stable angina, diastolic heart failure, PAF with chronic OAC, HLP, HTN, HIPOLITO and COPD. Due to abdominal cramping, Ranexa was reduced to 500 mg bid. Since he was last seen he has undergone GI evaluation. He had some polyps removed, as well as esophageal dilatation. He states he is now having difficulty swallowing again, and has been unsuccessful in contacting the teacher specialist. He has not lost a significant amount of weight. He continues to have belching and fullness in his chest which is difficult for him to differentiate from his typical angina pain. Most recently he has developed dizziness. In fact today he had his friend drive him to his office visit. He woke up yesterday with a fullness in his head and sneezing. He denies any fever or chills or cough. He has dyspnea on exertion. He uses sublingual nitroglycerin as needed the last time was approximately 2 weeks ago. His abdominal cramping resolved with the reduction of Ranexa. He has not required any extra diuretic therapy. His weight has remained relatively stable. He denies orthopnea. His blood pressure is on the low side today, which is uncharacteristic for him. He was successful in finding a sleep apnea mass that was comfortable for him, unfortunately he was required to return this back to the company after 90-day use. He has a follow-up in a couple weeks with the radiotelegraphist. Past Medical History: Past Medical History: Diagnosis Date Angina pectoris ([facility]) Anxiety Arrhythmia A-fib Asthma CAD (coronary artery disease) Cerebral artery occlusion with cerebral infarction ([facility]) COPD (chronic obstructive pulmonary disease) ([facility]) Depression WATTS (dyspnea on exertion) Fatigue GERD (gastroesophageal reflux disease) History of cardioversion 05/07/2016 Successful conversion of a-fib to SR History of left heart catheterization 05/07/2016 60% stenosis right posterior descending, patent stents in prox, mid & distal RCA, patent stents in med LCx. Findings unchanged from previous study. 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 correction current use of anticoagulant NSTEMI (non-ST elevated myocardial infarction) ([facility]) ([facility]) 12/2012 NSTEMI (non-ST elevated myocardial infarction) ([facility]) ([facility]) 05/2014 Obesity [place] (myocardial infarction) HIPOLITO (obstructive sleep apnea) HIPOLITO on CPAP PAF (paroxysmal atrial fibrillation) ([facility]) Rheumatoid arthritis(714.0) ([facility]) ST segment elevation myocardial infarction (STEMI) of anterolateral wall, subsequent episode of care ([facility]) ([facility]) TIA (transient ischemic attack) Past Surgical History Past Surgical History: Procedure Laterality Date CAPSULOTOMY, HAND 05/07/2016 CARDIAC CATHETERIZATION N/A 03/01/2023 Performed by Campbell Gonzales MD at [facility] Cardiac Cath/EP Lab CARDIAC PROCEDURE Left 05/2015 CARDIAC PROCEDURE Left 06/03/2017 CARDIAC PROCEDURE Bilateral 01/2010 CARDIAC PROCEDURE Left 09/05/2019 PCI to distal RCA and PL branch CHOLECYSTECTOMY 10/30/2019 CORONARY ANGIOPLASTY WITH STENT PLACEMENT Left 11/2006 restent RCA, FALKO to CX CORONARY ANGIOPLASTY WITH STENT PLACEMENT Left 05/2014 PTCA /cuttung balloon to instent restenosis RCA CORONARY ANGIOPLASTY WITH STENT PLACEMENT Left 10/2006 DESto prox Rt PAV, mid & dist RCA CORONARY ANGIOPLASTY WITH STENT PLACEMENT Left 11/2014 FLAKO to RCA CORONARY ANGIOPLASTY WITH STENT PLACEMENT Left 10/2007 FLAKO to Prox Rt PAV, mid-dist RCA CORONARY ANGIOPLASTY WITH STENT PLACEMENT Left 03/2009 FLAKO to mid RCA CORONARY ANGIOPLASTY WITH STENT PLACEMENT Left 12/01/2021 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/PCI to prox RCA CORONARY ANGIOPLASTY WITH STENT PLACEMENT Left 10/2013 FLAKO to prox & mid RCA CORONARY ANGIOPLASTY WITH STENT PLACEMENT Left 12/2007 FLAKO to LAD CORONARY ANGIOPLASTY WITH STENT PLACEMENT Bilateral 03/17/2021 Flako to the Mid RCA, and the Distal RCA CORONARY ANGIOPLASTY WITH STENT PLACEMENT Left 12/2012 FLAKO to mid RCA & prox-mid Rt GRACE JOINT REPLACEMENT 03/2019 TOTAL HIP ARTHROPLASTY Left 12/2012 Family History Family History Problem Relation Name Age of Onset Diabetes Paternal Grandmother Diabetes Maternal Grandfather Cancer Sister Hypertension Mother Diabetes Sister Diabetes Paternal Grandfather Heart disease Paternal Grandmother Heart disease Paternal Grandfather Cancer Father Diabetes Brother Social History Social History Tobacco Use Smoking status: Never Smokeless tobacco: Never Substance Use Topics Alcohol use: Not Currently Drug use: No Allergies: Allergies Allergen Reactions Penicillins Rash Medications: Current Outpatient Medications Medication Instructions amiodarone (PACERONE) 200 mg, Oral, Daily cholecalciferol (VITAMIN D-3) 800 Units, Oral, Daily clopidogrel (PLAVIX) 75 mg, Oral, Daily Eliquis 5 mg, Oral, 2 times daily isosorbide mononitrate ER (IMDUR) 120 mg, Oral, Daily, Do not crush or chew. metoprolol tartrate (LOPRESSOR) 25 mg, Oral, 2 times daily minoxidil (LONITEN) 5 mg, Oral, 2 times daily nitroglycerin (Nitrostat) 0.[address] 1 tablet under the tongue every 5 minutes as needed for Chest pain. If no relief after 3 tablets, call 9-1-1 immediately. pantoprazole (PROTONIX) 40 mg, Oral, Daily before breakfast, Do not crush, chew, or split. ranolazine (RANEXA) 500 mg, Oral, 2 times daily, Do not crush, chew, or split. rosuvastatin (CRESTOR) 40 mg, Oral, Daily spironolactone (ALDACTONE) 25 mg, Oral, 2 times daily torsemide (DEMADEX) 20 mg, Oral, Daily, Patient was also instructed to take additional 20 mg torsemide, if weight gain of more than 2 pounds in 1 day. Physical Examination: Vitals: Vitals: 06/17/23 1002 BP: 106/62 BP Location: Right arm Patient Position: Sitting BP Cuff Size: Large adult Pulse: 66 SpO2: 94% Weight: (!) 306 lb 12.8 oz (139 kg) Height: 6' 2.5 (1.892 m) Body mass index is 38.86 kg/m . Physical Exam Constitutional: Appearance: Normal appearance. He is morbidly obese. HENT: Head: Normocephalic. Eyes: General: No scleral icterus. Right eye: No discharge. Left eye: No discharge. Neck: Vascular: No carotid bruit or JVD. Cardiovascular: Rate and Rhythm: Normal rate and regular rhythm. Pulses: Normal pulses. Radial pulses are 2+ on the right side. Heart sounds: Normal heart sounds. No murmur heard. Pulmonary: Effort: Pulmonary effort is normal. Breath sounds: Normal breath sounds. Abdominal: General: Abdomen is protuberant. Bowel sounds are normal. Palpations: Abdomen is soft. Tenderness: There is no abdominal tenderness. Musculoskeletal: General: Normal range of motion. Cervical back: Normal range of motion. Right lower leg: No edema. Left lower leg: No edema. Skin: General: Skin is warm and dry. Capillary Refill: Capillary refill takes less than 2 seconds. Neurological: Mental Status: He is alert and oriented to person, place, and time. Psychiatric: Mood and Affect: Mood normal. Laboratory Tests: Lab Results Component Value Date WBC 7.4 02/22/2023 HGB 11.0 (L) 02/22/2023 HCT 32.9 (L) 02/22/2023 MCV 90.8 02/22/2023 PLT 249 02/22/2023 Lab Results Component Value Date GLUCOSE 153 (A) 02/19/2023 CALCIUM 8.5 04/09/2023 NA 142 04/09/2023 K 4.1 04/09/2023 CO2 28 04/09/2023 CL 112 (A) 04/09/2023 BUN 25 04/09/2023 CREATININE 1.50 (A) 04/09/2023 NT PRO BNP Date Value Ref Range Status 09/05/2019 645 (H) 0 - 125 pg/mL Final Lab Results Component Value Date CHLPL 144 08/05/2021 CHLPL 155 06/07/2019 CHOL 135 02/19/2023 CHOL 251 (H) 12/07/2022 Lab Results Component Value Date TRIG 190 (A) 02/19/2023 TRIG 227 (H) 12/07/2022 TRIG 132 08/05/2021 Lab Results Component Value Date HDL 47 02/19/2023 HDL 37 (L) 12/07/2022 HDL 49 08/05/2021 LDL- 50 Cardiac Tests: ECG: Encounter Date: 02/22/23 ECG 12 lead - CLINIC PERFORMED Narrative Sinus Rhythm ABNORMAL Inferior myocardial infarction Last Echo: 11/18/2022 Interpretation Summary Left Ventricle: Left ventricle size is normal. Moderately increased wall thickness. Normal left ventricular systolic function. The EF by visual approximation is 55%. Moderate hypokinesis of the following segments: basal inferolateral. Akinesis of the following segments: basal inferior. Right Ventricle: Right ventricle size is normal. Normal systolic function. Left Atrium: Left atrium is mildly dilated. Aorta: Normal sized sinuses of Valsalva. Moderately dilated ascending aorta. Ao ascending diameter is 4.5 cm. No significant valvular abnormalities. Last cardiac catheterization: 03/01/2023 Conclusion Impression: 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 of mid RCA that was previously treated with angioplasty in 11/2021 In-stent restenosis of mid RCA ( 100 % occlusion mid with prior intervention with small distal territory - now left to right collaterals) Patent Lcx and LAD stents Non-obstructive CAD of the Lcx and LAD Plan: - Continue optimal medical management of CAD and HTN - Will add anti-anginal medications for stable angina -Ranolazine will be added Assessment and Plan: 1. CAD in [place] artery with Stable angina: His angina seems to be well-controlled. We will continue his present medication regimen which includes Imdur 120 mg daily, metoprolol 25 mg twice a day, Ranexa 500 mg twice daily, and Plavix 75 mg daily. He will continue to use sublingual lingual nitroglycerin as needed. 2. Chronic diastolic heart failure (HCC) He is euvolemic today. In fact he is mildly orthostatic, I will not change his diuretic therapy but I will adjust his minoxidil dose. 3. Essential hypertension, benign Blood pressure is unusually low for him today. He reports dizziness, which he is somewhat attributing to sinus issues. I have asked him to reduce his minoxidil to 2.5 mg daily. I will reassess him in approximately 2 weeks when he returns for his sleep apnea visit. He was advised to monitor his blood pressure at home and to call with any elevations or worsening angina. 4. PAF (paroxysmal atrial fibrillation) ([facility]) Continues on amiodarone 200 daily, as well as apixaban 5 mg twice a day. 5. Mixed hyperlipidemia LDL at goal, continue rosuvastatin 40 mg daily. documented in this encounter [facility] 06-17-2023 Instructions DANIELLE Whitehead CNP - 06/17/2023 10:00 AM EST Reduce minoxidil to 5 mg daily. documented in this encounter [facility] 05-10-2023 History of Present illness Narrative Chief Complaint: Chief Complaint Patient presents with Follow-up History of Present Illness: HPI Follow up for dyspnea. He has severe CAD with diastolic CHF and also HIPOLITO. He has established with Dr. Boyce and is now on Bipap and is more tolerant of PAP therapy with mask changes. He is happy with Dr. Boyce's care and explanations. Additionally he underwent additional evaluation with cardiology including cardiac catherization. Revascularization was not possible. He has started Ranexa with improvement in anginal symptoms and volume status seems improved. He is now less SOB. He denies cough or wheezing. He is on no therapy for mild chronic bronchitis. I reviewed his cardiology and sleep medicine notes today. I reviewed his cardiac testing results. Past Medical History: Past Medical History: Diagnosis Date Angina pectoris ([facility]) Anxiety Arrhythmia A-fib Asthma CAD (coronary artery disease) Cerebral artery occlusion with cerebral infarction ([facility]) COPD (chronic obstructive pulmonary disease) ([facility]) Depression WATTS (dyspnea on exertion) Fatigue GERD (gastroesophageal reflux disease) History of cardioversion 05/07/2016 Successful conversion of a-fib to SR History of left heart catheterization 05/07/2016 60% stenosis right posterior descending, patent stents in prox, mid & distal RCA, patent stents in med LCx. Findings unchanged from previous study. 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 drug correction current use of anticoagulant NSTEMI (non-ST elevated myocardial infarction) ([facility]) ([facility]) 12/2012 NSTEMI (non-ST elevated myocardial infarction) ([facility]) ([facility]) 05/2014 Obesity [place] (myocardial infarction) HIPOLITO (obstructive sleep apnea) HIPOLITO on CPAP PAF (paroxysmal atrial fibrillation) ([facility]) Rheumatoid arthritis(714.0) ([facility]) ST segment elevation myocardial infarction (STEMI) of anterolateral wall, subsequent episode of care ([facility]) ([facility]) TIA (transient ischemic attack) Social History: Social History Socioeconomic History Marital status: Legally Tobacco Use Smoking status: Never Smokeless tobacco: Never Substance and Sexual Activity Alcohol use: Not Currently Drug use: No Social Determinants of Health Intimate Partner Violence: Not At Risk (12/06/2022) Humiliation, Afraid, Rape, and Kick questionnaire Fear of Current or Ex-Partner: No Emotionally Abused: No Physically Abused: No Sexually Abused: No Family History: Family History Problem Relation Name Age of Onset Diabetes Paternal Grandmother Diabetes Maternal Grandfather Cancer Sister Hypertension Mother Diabetes Sister Diabetes Paternal Grandfather Heart disease Paternal Grandmother Heart disease Paternal Grandfather Cancer Father Diabetes Brother ROS: Review of Systems Respiratory: Positive for shortness of breath. All other systems reviewed and are negative. Medications: Current Outpatient Medications Medication Sig Dispense Refill amiodarone (Pacerone) 200 MG tablet Take 1 tablet (200 mg) by mouth daily. 90 tablet 1 apixaban (Eliquis) 5 MG tablet Take 1 tablet (5 mg) by mouth 2 times daily. 180 tablet 3 cholecalciferol (Vitamin D-3) 20 MCG (800 UNIT) tablet Take 800 Units by mouth daily. clopidogrel (Plavix) 75 MG tablet Take 1 tablet (75 mg) by mouth daily. 90 tablet 3 isosorbide mononitrate ER (Imdur) 60 MG 24 hr tablet Take 2 tablets (120 mg) by mouth daily. Do not crush or chew. 90 tablet 3 metoprolol tartrate (Lopressor) 25 MG tablet Take 1 tablet (25 mg) by mouth 2 times daily. 180 tablet 3 minoxidil (Loniten) 10 MG tablet TAKE 1/2 TABLET BY MOUTH TWICE DAILY 180 tablet 3 nitroglycerin (Nitrostat) 0.[address] 1 tablet under the tongue every 5 minutes as needed for Chest pain. If no relief after 3 tablets, call 9-1-1 immediately. 25 tablet 3 pantoprazole (Protonix) 40 MG EC tablet Take 1 tablet (40 mg) by mouth every morning (before breakfast). Do not crush, chew, or split. 90 tablet 3 ranolazine (Ranexa) 1000 MG 12 hr tablet Take 1 tablet (1,000 mg) by mouth 2 times daily. Do not crush, chew, or split. (Patient taking differently: Take 500 mg by mouth 2 times daily. Do not crush, chew, or split.) 60 tablet 11 rosuvastatin (Crestor) 40 MG tablet Take 1 tablet (40 mg) by mouth daily. 90 tablet 3 spironolactone (Aldactone) 25 MG tablet Take 1 tablet (25 mg) by mouth 2 times daily. 180 tablet 3 torsemide (Demadex) 20 MG tablet Take 1 tablet (20 mg) by mouth daily. Patient was also instructed to take additional 20 mg torsemide, if weight gain of more than 2 pounds in 1 day. 90 tablet 3 No current facility-administered medications for this visit. Allergies: Allergies Allergen Reactions Penicillins Rash Physical Exam: BP Temp Pulse Resp SpO2 BP (!) 140/86 Pulse 52 Resp 18 Ht 6' 2.49 (1.892 m) Wt (!) 306 lb 12.8 oz (139 kg) SpO2 92% Comment: RA BMI 38.88 kg/m Physical Exam Constitutional: General: He is not in acute distress. Appearance: He is obese. He is not ill-appearing or toxic-appearing. HENT: Head: Normocephalic and atraumatic. Nose: Nose normal. No congestion or rhinorrhea. Mouth/Throat: Mouth: Mucous membranes are moist. Pharynx: Oropharynx is clear. No oropharyngeal exudate. Eyes: General: No scleral icterus. Conjunctiva/sclera: Conjunctivae normal. Cardiovascular: Rate and Rhythm: Normal rate and regular rhythm. Heart sounds: No murmur heard. No friction rub. No gallop. Pulmonary: Effort: Pulmonary effort is normal. No respiratory distress. Breath sounds: No stridor. No wheezing, rhonchi or rales. Musculoskeletal: General: Swelling present. No tenderness, deformity or signs of injury. Skin: General: Skin is warm and dry. Coloration: Skin is not pale. Findings: No rash. Neurological: General: No focal deficit present. Mental Status: He is alert and oriented to person, place, and time. Psychiatric: Mood and Affect: Mood normal. Behavior: Behavior normal. Thought Content: Thought content normal. Assessment and Plan: 1. HIPOLITO treated with BiPAP Stressed importance of compliance and follow up with sleep medicine. 2. Atherosclerotic heart disease of [place] coronary artery with other forms of angina pectoris (HCC) Suspect that angina and CHF are bigger components of dyspnea than underlying lung disease. Seems more optimized at this point. 3. PAF (paroxysmal atrial fibrillation) (HCC) Remains on amiodarone. Doubt related ILD. 4. Chronic diastolic heart failure (HCC) More euvolemic today. 5. Chronic bronchitis, unspecified chronic bronchitis type (HCC) Minimal disease and not on therapy. I do not believe this is predominant etiology for his dyspnea. Follow-up: with Dr. Boyce for sleep, prn with me documented in this encounter [facility] 05-10-2023 Instructions Marii Kumar Rai, MA - 05/10/2023 10:30 AM EST YOUR APPOINTMENT TODAY WAS WITH THE [facility] LUNG NODULE CLINIC, COPD CLINIC, PULMONARY AND SLEEP MEDICINE OFFICE. PLEASE CALL OUR OFFICE AT [phone] IF YOU HAVE NOT RECEIVED YOUR TEST RESULTS 7 DAYS AFTER TESTING IS COMPLETED. PLEASE REMEMBER TO REQUEST REFILLS AT YOUR OFFICE VISITS. PHONE/FAX REQUESTS REQUIRE 48-72 HOURS FOR RESPONSE. A FRIENDLY REMINDER COPAYS ARE DUE AT TIME OF SERVICE. THANK YOU. Our Patients Are Important! We want to improve and you can help. After your visit we want you to feel: Listened to, Respected and have your health care explained. You may receive a survey asking you about your visit. Please complete the survey. We will use your feedback to make improvements. COVID-19 VACCINATION INFORMATION: PH. [phone] [email or web address] [facility] Central Scheduling [phone] [facility] Sleep Scheduling [phone] documented in this encounter [facility] 04-14-2023 Telephone encounter Note PC to patient with lab results. He states his abdominal discomfort has improved on lower dose of Ranexa. Will update NALDO [facility] 04-14-2023 Miscellaneous Notes PC to patient with lab results. He states his abdominal discomfort has improved on lower dose of Ranexa. Will update NALDO PC to patient, BMP stable, attempted to call patient, but no answer, no voice mail. Please let him know BMP stable, Please ask if abdominal pain is better on lower dose of ranexa. documented in this encounter [facility] 04-13-2023 Telephone encounter Note PC to patient, BMP stable, attempted to call patient, but no answer, no voice mail. Please let him know BMP stable, Please ask if abdominal pain is better on lower dose of ranexa. [facility] 04-08-2023 Telephone encounter Note Patient requesting refill on metoprolol tartrate 25 MG BID to be sent to [facility]. [facility] 04-08-2023 Miscellaneous Notes Patient requesting refill on metoprolol tartrate 25 MG BID to be sent to [facility]. Please review and refuse if appropriate. Med stopped at discharge in November documented in this encounter [facility] 04-08-2023 History of Present illness Narrative [facility] Cardiology [facility] C[facility]IOLOG[facility] [address] [id number] Dept: [phone] Dept Loc: [phone] Visit type: Established : 1955 Chief Complaint: Chief Complaint Patient presents with Follow-up Shortness of Breath Dizziness History of Present Illness: Shannon Dickerson is a 67 y.o. male followed by Dr Gonzales with a history of CAD, COPD, PAF with chronic OAC, HLP, and HTN. HIPOLITO for which he is working to get treated but is having a hard time adjusting to any device. He continued to have his typical angina,so a LHC was recommended. This was performed , and RCA was occlude with collateral circulation. Renexa was added, and at his last OV was increased to 1000 mg bid. He presents for follow-up today. He states his angina is improved with the increased dose of Ranexa however he has developed severe abdominal cramping that has become uncomfortable. He noticed abdominal cramping when he first started on the Ranexa 500 mg twice a day however it has worsened since the increased dose. He reports that he had a basic metabolic panel drawn following our last office visit however there is no record of that. He stated he waited 2 hours at the lab downstairs to have this test drawn. He has gotten a new BiPAP mask which is more comfortable and he has worn it for the last 3 nights. Secondary to difficulty swallowing his food, he will be undergoing an EGD on May 20 of this year. Past Medical History: Past Medical History: Diagnosis Date Angina pectoris ([facility]) Anxiety Arrhythmia A-fib Asthma CAD (coronary artery disease) Cerebral artery occlusion with cerebral infarction ([facility]) COPD (chronic obstructive pulmonary disease) ([facility]) Depression WATTS (dyspnea on exertion) Fatigue GERD (gastroesophageal reflux disease) History of cardioversion 05/07/2016 Successful conversion of a-fib to SR History of left heart catheterization 05/07/2016 60% stenosis right posterior descending, patent stents in prox, mid & distal RCA, patent stents in med LCx. Findings unchanged from previous study. 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 NSTEMI (non-ST elevated myocardial infarction) ([facility]) ([facility]) 12/2012 NSTEMI (non-ST elevated myocardial infarction) ([facility]) ([facility]) 05/2014 Obesity [place] (myocardial infarction) HIPOLITO (obstructive sleep apnea) HIPOLITO on CPAP PAF (paroxysmal atrial fibrillation) ([facility]) Rheumatoid arthritis(714.0) ([facility]) ST segment elevation myocardial infarction (STEMI) of anterolateral wall, subsequent episode of care ([facility]) ([facility]) TIA (transient ischemic attack) Past Surgical History Past Surgical History: Procedure Laterality Date CAPSULOTOMY, HAND 05/07/2016 CARDIAC CATHETERIZATION N/A 03/01/2023 Performed by Campbell Gonzales MD at [facility] Cardiac Cath/EP Lab CARDIAC PROCEDURE Left 05/2015 CARDIAC PROCEDURE Left 06/03/2017 CARDIAC PROCEDURE Bilateral 01/2010 CARDIAC PROCEDURE Left 09/05/2019 PCI to distal RCA and PL branch CHOLECYSTECTOMY 10/30/2019 CORONARY ANGIOPLASTY WITH STENT PLACEMENT Left 11/2006 restent RCA, FLAKO to CX CORONARY ANGIOPLASTY WITH STENT PLACEMENT Left 05/2014 PTCA /cuttung balloon to instent restenosis RCA CORONARY ANGIOPLASTY WITH STENT PLACEMENT Left 10/2006 DESto prox Rt PAV, mid & dist RCA CORONARY ANGIOPLASTY WITH STENT PLACEMENT Left 11/2014 FLAKO to RCA CORONARY ANGIOPLASTY WITH STENT PLACEMENT Left 10/2007 FLAKO to Prox Rt PAV, mid-dist RCA CORONARY ANGIOPLASTY WITH STENT PLACEMENT Left 03/2009 FLAKO to mid RCA CORONARY ANGIOPLASTY WITH STENT PLACEMENT Left 12/01/2021 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/PCI to prox RCA CORONARY ANGIOPLASTY WITH STENT PLACEMENT Left 10/2013 FLAKO to prox & mid RCA CORONARY ANGIOPLASTY WITH STENT PLACEMENT Left 12/2007 FLAKO to LAD CORONARY ANGIOPLASTY WITH STENT PLACEMENT Bilateral 03/17/2021 Flako to the Mid RCA, and the Distal RCA CORONARY ANGIOPLASTY WITH STENT PLACEMENT Left 12/2012 FLAKO to mid RCA & prox-mid Rt GRACE JOINT REPLACEMENT 03/2019 TOTAL HIP ARTHROPLASTY Left 12/2012 Family History Family History Problem Relation Name Age of Onset Diabetes Paternal Grandmother Diabetes Maternal Grandfather Cancer Sister Hypertension Mother Diabetes Sister Diabetes Paternal Grandfather Heart disease Paternal Grandmother Heart disease Paternal Grandfather Cancer Father Diabetes Brother Social History Social History Tobacco Use Smoking status: Never Smokeless tobacco: Never Substance Use Topics Alcohol use: Not Currently Drug use: No Allergies: Allergies Allergen Reactions Penicillins Rash Medications: Current Outpatient Medications Medication Instructions amiodarone (PACERONE) 200 mg, Oral, Daily cholecalciferol (VITAMIN D-3) 800 Units, Oral, Daily clopidogrel (PLAVIX) 75 mg, Oral, Daily Eliquis 5 mg, Oral, 2 times daily isosorbide mononitrate ER (IMDUR) 120 mg, Oral, Daily, Do not crush or chew. metoprolol tartrate (LOPRESSOR) 25 mg, Oral, 2 times daily minoxidil (LONITEN) 5 mg, Oral, 2 times daily nitroglycerin (Nitrostat) 0.[address] 1 tablet under the tongue every 5 minutes as needed for Chest pain. If no relief after 3 tablets, call 9-1-1 immediately. pantoprazole (PROTONIX) 40 mg, Oral, Daily before breakfast, Do not crush, chew, or split. ranolazine (RANEXA) 1,000 mg, Oral, 2 times daily, Do not crush, chew, or split. rosuvastatin (CRESTOR) 40 mg, Oral, Daily spironolactone (ALDACTONE) 25 mg, Oral, 2 times daily torsemide (DEMADEX) 20 mg, Oral, Daily, Patient was also instructed to take additional 20 mg torsemide, if weight gain of more than 2 pounds in 1 day. Review of Systems: Review of Systems Constitutional: Negative for chills and fever. HENT: Positive for trouble swallowing. Respiratory: Positive for shortness of breath. Negative for cough. Cardiovascular: Positive for chest pain (improved). Negative for palpitations and leg swelling. Gastrointestinal: Positive for abdominal pain (cramping) and constipation. Negative for anal bleeding, blood in stool and vomiting. Genitourinary: Negative for hematuria. Neurological: Negative for dizziness and syncope. Physical Examination: Vitals: Vitals: 04/08/23 0951 BP: 124/78 BP Location: Right arm Patient Position: Sitting BP Cuff Size: Large adult Pulse: 68 SpO2: 97% Weight: (!) 306 lb 12.8 oz (139 kg) Height: 6' 2.5 (1.892 m) Body mass index is 38.86 kg/m . Physical Exam Constitutional: Appearance: Normal appearance. He is morbidly obese. HENT: Head: Normocephalic. Eyes: General: No scleral icterus. Right eye: No discharge. Left eye: No discharge. Cardiovascular: Rate and Rhythm: Normal rate and regular rhythm. Pulses: Normal pulses. Radial pulses are 2+ on the right side and 2+ on the left side. Heart sounds: Normal heart sounds. No murmur heard. Pulmonary: Effort: Pulmonary effort is normal. Breath sounds: Normal breath sounds and air entry. Abdominal: General: Abdomen is protuberant. Palpations: Abdomen is soft. Musculoskeletal: General: Normal range of motion. Cervical back: Normal range of motion. Right lower leg: No edema. Left lower leg: No edema. Skin: General: Skin is warm and dry. Capillary Refill: Capillary refill takes less than 2 seconds. Neurological: Mental Status: He is alert and oriented to person, place, and time. Psychiatric: Mood and Affect: Mood normal. Laboratory Tests: Lab Results Component Value Date WBC 7.4 02/22/2023 HGB 11.0 (L) 02/22/2023 HCT 32.9 (L) 02/22/2023 MCV 90.8 02/22/2023 PLT 249 02/22/2023 Lab Results Component Value Date GLUCOSE 153 (A) 02/19/2023 CALCIUM 8.6 02/19/2023 NA 142 02/19/2023 K 3.9 02/19/2023 CO2 27 02/19/2023 CL 111 (A) 02/19/2023 BUN 18 02/19/2023 CREATININE 1.58 (A) 02/19/2023 NT PRO BNP Date Value Ref Range Status 09/05/2019 645 (H) 0 - 125 pg/mL Final Lab Results Component Value Date CHLPL 144 08/05/2021 CHLPL 155 06/07/2019 CHOL 135 02/19/2023 CHOL 251 (H) 12/07/2022 Lab Results Component Value Date TRIG 190 (A) 02/19/2023 TRIG 227 (H) 12/07/2022 TRIG 132 08/05/2021 Lab Results Component Value Date HDL 47 02/19/2023 HDL 37 (L) 12/07/2022 HDL 49 08/05/2021 LDL-=50 Cardiac Tests: ECG: Encounter Date: 02/22/23 ECG 12 lead - CLINIC PERFORMED Narrative Sinus Rhythm ABNORMAL Inferior myocardial infarction Last Echo: 11/18/2022 Interpretation Summary Left Ventricle: Left ventricle size is normal. Moderately increased wall thickness. Normal left ventricular systolic function. The EF by visual approximation is 55%. Moderate hypokinesis of the following segments: basal inferolateral. Akinesis of the following segments: basal inferior. Right Ventricle: Right ventricle size is normal. Normal systolic function. Left Atrium: Left atrium is mildly dilated. Aorta: Normal sized sinuses of Valsalva. Moderately dilated ascending aorta. Ao ascending diameter is 4.5 cm. No significant valvular abnormalities. Last cardiac catheterization: 03/01/2023 Conclusion Impression: 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 of mid RCA that was previously treated with angioplasty in 11/2021 In-stent restenosis of mid RCA ( 100 % occlusion mid with prior intervention with small distal territory - now left to right collaterals) Patent Lcx and LAD stents Non-obstructive CAD of the Lcx and LAD Plan: - Continue optimal medical management of CAD and HTN - Will add anti-anginal medications for stable angina -Ranolazine will be added Assessment and Plan: 1. CAD in [place] artery: with stable angina: Secondary to abdominal cramping, I will reduce his Ranexa back to 500 mg twice a day. I will increase his metoprolol to 50 mg in the morning and 25 mg in the evening.Continue Imdur 120 mg daily. He was also advised to use a prophylactic sublingual nitroglycerin prior to doing exertional activities. I have asked him to contact our office in a few weeks, to let us know if the abdominal cramping has improved. Continue Plavix 75 mg daily. No aspirin, due to the need for oral anticoagulation. - Basic metabolic panel; Future - Basic metabolic panel 2. Chronic diastolic heart failure (HCC) He is euvolemic today he will continue his current dose of diuretics which includes torsemide as well as spironolactone 25 mg twice a day. I have asked him to get a repeat basic metabolic panel in approximately 1 month. I will see if we can locate the blood work that he states was drawn 2 weeks ago. 3. Essential hypertension, benign Blood pressure is under good control. He is a bit frustrated with the number of medications that he is taken. I advised him that I did not feel it would be prudent to discontinue any of these at this time. 4. PAF (paroxysmal atrial fibrillation) ([facility]) Continue amiodarone 200 mg daily. He will continue on his apixaban 5 mg twice a day. He was advised it is safe to hold this 2 days prior to his EGD, however he must continue his Plavix 75 mg daily uninterrupted. This was discussed by telephone with Dr. Gonzales. 5. Mixed hyperlipidemia Continue rosuvastatin 40 mg daily. He will follow-up in 2 months. documented in this encounter [facility] [employer] 04-08-2023 Instructions DANIELLE Whitehead CNP - 04/08/2023 10:00 AM EST Reduce Ranexa to 500 mg twice a day. 2. Increase metoprolol to 50 mg in the am,( 2 tablets ) and 25 mg in the pm. Use SL NTG prior to exertional activities. Call with an update on abdominal cramping documented in this encounter [facility] [employer] 04-01-2023 Telephone encounter Note Please review and refuse if appropriate. Med stopped at discharge in November [facility] 03-29-2023 History of Present illness Narrative [facility]- PULMONARY AND SLEEP MEDICINE ESTABLISHED PATIENT VISIT 03/29/2023 CHIEF COMPLAINT/REASON FOR REFERRAL: Chief Complaint Patient presents with Follow-up Sleep Apnea History of Present Illness: Shannon Dickerson presents today for follow-up of HIPOLITO. We were scheduled for a visit last month, but he had an emergency come up and could not make it. Sleep study: Split-night PSG 11/20/2022. Diagnostic portion demonstrated severe HIPOLITO with an AHI of 49/h. SPO2 bhakti 71%. 29% of sleep time with SPO2 less than 89%. He was titrated to optimal settings of BPAP-S16/10. Since her last visit, the patient did try using his device with AirFit F30 fullface interface. He says that he felt much better the first few nights after starting PAP therapy. [place] his sleep quality was much better. However, subsequently had difficulties with the mask fit and would find it leaking. He found himself struggling during the nights just to maintain a good seal. He became frustrated with it and stopped using it. Several years ago when using CPAP he tried a nasal interface and remember needing a chinstrap. That is why he chose a fullface interface system. He also describes significant jaw pain with this current PAP mask. He brought his BiPAP device with him today and I reviewed the data on him. He has not used it much in the last month or so. Since he got his device, he uses a total of 14 days. During that time, the therapy was actually effective for him. Average residual AHI was 4.7/h. Average leak was reasonable at 13 L/min. He has had follow-up with cardiology in the meantime. He underwent left heart cath on 03/01/2023 which demonstrated 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 of the RCA, 10 to 40% stenosis of the circumflex, 10% stenosis of LAD. He was started on Ranexa for his chest pain which was subsequently increased to 1000 twice daily. Continues on torsemide daily. [place] Sleepiness Scale Sitting and reading: Slight chance of dozing Watching TV: Would never doze Sitting, inactive in a public place (e.g. a theatre or a meeting): Slight chance of dozing As a passenger in a car for an hour without a break: Would never doze Lying down to rest in the afternoon when circumstances permit: Moderate chance of dozing Sitting and talking to someone: Would never doze Sitting quietly after a lunch without alcohol: Slight chance of dozing In a car, while stopped for a few minutes in traffic: Would never doze Total score: 5 Assessment and Plan: Obstructive sleep apnea PAP intolerance I spent some time during our visit today troubleshooting his device with him. I had him put on his mask and connected his BiPAP machine and show me how he is using it. I had him perform the mask fit test on his device. Mask fit was actually very good. He did acknowledge that it fit better today than he remembered in the past. He is still bothered by jaw pain related to the full facemask. Hence I gave him a sample of a nasal pillows interface and had him try that on as well during our visit today. He found the [employer] air fit P30i mask much more comfortable and we found that it seals well. I am hoping there will be less issues with the mask moving on his face during his sleep. I sent a new prescription for nasal pillows interface and a chinstrap to his DME provider-[facility]. Encouraged the patient to keep trying to use his device and reinforced the settings are working well for him based on his previous usage data. Routine follow-up in 2 to 3 months. Sy Boyce MD Pulmonary, Critical Care, and Sleep Medicine Portions of the information within this encounter were entered using an electronic dictation system. Best attempts were made to edit/proofread the information prior to note completion. Despite the review of information, some errors may remain. If there are questions related to the information contained within the note please contact the signing physician directly. PastMedical History Past Medical History: Diagnosis Date Angina pectoris (HCC) Anxiety Arrhythmia A-fib Asthma CAD (coronary artery disease) Cerebral artery occlusion with cerebral infarction (HCC) COPD (chronic obstructive pulmonary disease) (HCC) Depression WATTS (dyspnea on exertion) Fatigue GERD (gastroesophageal reflux disease) History of cardioversion 05/07/2016 Successful conversion of a-fib to SR History of left heart catheterization 05/07/2016 60% stenosis right posterior descending, patent stents in prox, mid & distal RCA, patent stents in med LCx. Findings unchanged from previous study. 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 drug correction current use of anticoagulant NSTEMI (non-ST elevated myocardial infarction) ([facility]) ([facility]) 12/2012 NSTEMI (non-ST elevated myocardial infarction) ([facility]) ([facility]) 05/2014 Obesity [place] (myocardial infarction) HIPOLITO (obstructive sleep apnea) HIPOLITO on CPAP PAF (paroxysmal atrial fibrillation) ([facility]) Rheumatoid arthritis(714.0) ([facility]) ST segment elevation myocardial infarction (STEMI) of anterolateral wall, subsequent episode of care ([facility]) ([facility]) TIA (transient ischemic attack) Past Surgical History Past Surgical History: Procedure Laterality Date CAPSULOTOMY, HAND 05/07/2016 CARDIAC CATHETERIZATION N/A 03/01/2023 Performed by Campbell Gonzales MD at [facility] Cardiac Cath/EP Lab CARDIAC PROCEDURE Left 05/2015 CARDIAC PROCEDURE Left 06/03/2017 CARDIAC PROCEDURE Bilateral 01/2010 CARDIAC PROCEDURE Left 09/05/2019 PCI to distal RCA and PL branch CHOLECYSTECTOMY 10/30/2019 CORONARY ANGIOPLASTY WITH STENT PLACEMENT Left 11/2006 restent RCA, FLAKO to CX CORONARY ANGIOPLASTY WITH STENT PLACEMENT Left 05/2014 PTCA /cuttung balloon to instent restenosis RCA CORONARY ANGIOPLASTY WITH STENT PLACEMENT Left 10/2006 DESto prox Rt PAV, mid & dist RCA CORONARY ANGIOPLASTY WITH STENT PLACEMENT Left 11/2014 FLAKO to RCA CORONARY ANGIOPLASTY WITH STENT PLACEMENT Left 10/2007 FLAKO to Prox Rt PAV, mid-dist RCA CORONARY ANGIOPLASTY WITH STENT PLACEMENT Left 03/2009 FLAKO to mid RCA CORONARY ANGIOPLASTY WITH STENT PLACEMENT Left 12/01/2021 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/PCI to prox RCA CORONARY ANGIOPLASTY WITH STENT PLACEMENT Left 10/2013 FLAKO to prox & mid RCA CORONARY ANGIOPLASTY WITH STENT PLACEMENT Left 12/2007 FLAKO to LAD CORONARY ANGIOPLASTY WITH STENT PLACEMENT Bilateral 03/17/2021 Flako to the Mid RCA, and the Distal RCA CORONARY ANGIOPLASTY WITH STENT PLACEMENT Left 12/2012 FLAKO to mid RCA & prox-mid Rt GRACE JOINT REPLACEMENT 03/2019 TOTAL HIP ARTHROPLASTY Left 12/2012 Allergies Allergies Allergen Reactions Penicillins Rash Medications Current Outpatient Medications: amiodarone (Pacerone) 200 MG tablet, Take 1 tablet (200 mg) by mouth daily., Disp: 90 tablet, Rfl: 1 apixaban (Eliquis) 5 MG tablet, Take 1 tablet (5 mg) by mouth 2 times daily., Disp: 180 tablet, Rfl: 3 cholecalciferol (Vitamin D-3) 20 MCG (800 UNIT) tablet, Take 800 Units by mouth daily., Disp: , Rfl: clopidogrel (Plavix) 75 MG tablet, Take 1 tablet (75 mg) by mouth daily., Disp: 90 tablet, Rfl: 3 isosorbide mononitrate ER (Imdur) 60 MG 24 hr tablet, Take 2 tablets (120 mg) by mouth daily. Do not crush or chew., Disp: 90 tablet, Rfl: 3 metoprolol tartrate (Lopressor) 25 MG tablet, Take 1 tablet (25 mg) by mouth 2 times daily., Disp: 60 tablet, Rfl: 1 minoxidil (Loniten) 10 MG tablet, TAKE 1/2 TABLET BY MOUTH TWICE DAILY, Disp: 180 tablet, Rfl: 3 nitroglycerin (Nitrostat) 0.4 MG SL tablet, Place 1 tablet under the tongue every 5 minutes as needed for Chest pain. If no relief after 3 tablets, call 9-1-1 immediately., Disp: 25 tablet, Rfl: 3 pantoprazole (Protonix) 40 MG EC tablet, Take 1 tablet (40 mg) by mouth every morning (before breakfast). Do not crush, chew, or split., Disp: 90 tablet, Rfl: 3 ranolazine (Ranexa) 1000 MG 12 hr tablet, Take 1 tablet (1,000 mg) by mouth 2 times daily. Do not crush, chew, or split., Disp: 60 tablet, Rfl: 11 rosuvastatin (Crestor) 40 MG tablet, Take 1 tablet (40 mg) by mouth daily., Disp: 90 tablet, Rfl: 3 spironolactone (Aldactone) 25 MG tablet, Take 1 tablet (25 mg) by mouth 2 times daily., Disp: 180 tablet, Rfl: 3 torsemide (Demadex) 20 MG tablet, Take 1 tablet (20 mg) by mouth daily. Patient was also instructed to take additional 20 mg torsemide, if weight gain of more than 2 pounds in 1 day., Disp: 90 tablet, Rfl: 3 Social History Social History Socioeconomic History Marital status: Legally Spouse name: Not on file Number of children: Not on file Years of education: Not on file Highest education level: Not on file Occupational History Not on file Tobacco Use Smoking status: Never Smokeless tobacco: Never Substance and Sexual Activity Alcohol use: Not Currently Drug use: No Sexual activity: Not on file Other Topics Concern Not on file Social History Narrative Not on file Social Determinants of Health Financial Resource Strain: Not on file Food Insecurity: Not on file Transportation Needs: Not on file Physical Activity: Not on file Stress: Not on file Social Connections: Not on file Intimate Partner Violence: Not At Risk (12/06/2022) Humiliation, Afraid, Rape, and Kick questionnaire Fear of Current or Ex-Partner: No Emotionally Abused: No Physically Abused: No Sexually Abused: No Housing Stability: Not on file FamilyHistory Family History Problem Relation Name Age of Onset Diabetes Paternal Grandmother Diabetes Maternal Grandfather Cancer Sister Hypertension Mother Diabetes Sister Diabetes Paternal Grandfather Heart disease Paternal Grandmother Heart disease Paternal Grandfather Cancer Father Diabetes Brother Review of Systems Review of Systems Constitutional: Positive for fatigue. Cardiovascular: Positive for chest pain. Psychiatric/Behavioral: Positive for sleep disturbance. All other systems reviewed and are negative. Physical Exam Vitals: 03/29/23 1310 BP: 126/74 Patient Position: Sitting BP Cuff Size: Adult Pulse: 63 Resp: 18 SpO2: 95% Weight: (!) 310 lb 6.4 oz (141 kg) Height: 6' 2.5 (1.892 m) Physical Exam Constitutional: General: He is not in acute distress. Appearance: He is well-developed. He is obese. He is not ill-appearing. HENT: Head: Normocephalic and atraumatic. Right Ear: External ear normal. Left Ear: External ear normal. Nose: Nose normal. Mouth/Throat: Mouth: Mucous membranes are moist. Pharynx: Oropharynx is clear. No oropharyngeal exudate. Eyes: General: No scleral icterus. Right eye: No discharge. Left eye: No discharge. Extraocular Movements: Extraocular movements intact. Conjunctiva/sclera: Conjunctivae normal. Pupils: Pupils are equal, round, and reactive to light. Neck: Thyroid: No thyromegaly. Vascular: No JVD. Cardiovascular: Rate and Rhythm: Normal rate and regular rhythm. Pulses: Normal pulses. Heart sounds: Normal heart sounds. No murmur heard. Pulmonary: Effort: Pulmonary effort is normal. No respiratory distress. Breath sounds: Normal breath sounds. No stridor. No wheezing or rhonchi. Abdominal: General: There is no distension. Palpations: Abdomen is soft. There is no mass. Tenderness: There is no abdominal tenderness. There is no guarding. Musculoskeletal: General: No swelling or deformity. Normal range of motion. Cervical back: Normal range of motion and neck supple. Right lower leg: No edema. Left lower leg: No edema. Lymphadenopathy: Cervical: No cervical adenopathy. Skin: General: Skin is warm and dry. Coloration: Skin is not jaundiced. Findings: No rash. Neurological: General: No focal deficit present. Mental Status: He is alert and oriented to person, place, and time. Mental status is at baseline. Motor: No weakness. Gait: Gait normal. Psychiatric: Mood and Affect: Mood normal. Behavior: Behavior normal. Thought Content: Thought content normal. Judgment: Judgment normal. LABS and Studies: Available studies were personally reviewed. Salient findings summarized in HPI & A/P Imaging: CXR portable:Results for orders placed during the hospital encounter of 12/06/22 XR chest 1 view Narrative Patient Name: SHANNON DICKERSON : 1955 [id number] Exam Date/Time: 12/07/2022 08:42 Procedure: XR CHEST 1 VIEW Ordering Provider: EDGAR VENKATESH Reason For Exam: FEVER CLINICAL INFORMATION: Shortness of breath. Fevers. Portable view of the chest at 0820 hours is provided and compared to a previous study dated September 15, 2019. FINDINGS: The heart size is normal. There are no focal infiltrates. There is mild prominence of interstitium and central pulmonary vasculature. A right shoulder arthroplasty is noted. Impression 1. No focal infiltrates. 2. Prominence of the interstitium and central pulmonary vasculature consistent with mild congestive heart failure/fluid overload. Report Dictated on Electronically Signed By: Coy Rojas MD Electronically Signed Date/Time: 12/07/2022 11:30 AM EDT CXR (2V): No results found for this or any previous visit. CT Chest: No results found for this or any previous visit. CTA Chest: No results found for this or any previous visit. Other Studies: Reviewed and as per electronic record. CxR/CT images personally reviewed by me when available; salient findings summarized in A/P. PFT's: Pulmonary Functions Testing Results: No results found for: FEV1 , FVC , [id number] , TLC , DLCO No results found for: FEV1 , FVC , [id number] , TLC , DLCO documented in this encounter [facility] 03-29-2023 Instructions Tennille Escalante MA - 03/29/2023 1:15 PM EST YOUR APPOINTMENT TODAY WAS WITH THE [facility], COPD CLINIC, PULMONARY AND SLEEP MEDICINE OFFICE. PLEASE CALL OUR OFFICE AT [phone] IF YOU HAVE NOT RECEIVED YOUR TEST RESULTS 7 DAYS AFTER TESTING IS COMPLETED. PLEASE REMEMBER TO REQUEST REFILLS AT YOUR OFFICE VISITS. PHONE/FAX REQUESTS REQUIRE 48-72 HOURS FOR RESPONSE. A FRIENDLY REMINDER COPAYS ARE DUE AT TIME OF SERVICE. THANK YOU. Our Patients Are Important! We want to improve and you can help. After your visit we want you to feel: Listened to, Respected and have your health care explained. You may receive a survey asking you about your visit. Please complete the survey. We will use your feedback to make improvements. COVID-19 VACCINATION INFORMATION: PH. [phone] [email or web address] [facility] Central Scheduling [phone] [facility] Sleep Scheduling [phone] documented in this encounter [facility] 03-18-2023 History of Present illness Narrative [facility] Cardiology [facility] [address] [place] [id number] Dept: [phone] Dept Loc: [phone] Visit type: Established : 1955 Chief Complaint: Chief Complaint Patient presents with Follow-up Shortness of Breath Chest Pain History of Present Illness: Shannon Dickerson is a 67 y.o. male followed by Dr Gonzales with a history of CAD, COPD, PAF with chronic OAC, HLP, and HTN. HIPOLITO for which he is working to get treated but is having a hard time adjusting to any device. He continued to have his typical angina,so a LHC was recommended. This was performed , and RCA was occlude with collateral circulation. Renexa was added. He presents for follow-up today. He has noticed about a 60% improvement in his anginal symptoms. He was able to work out in the yard and pull some weeds without difficulty. He also walked around the store for couple extra minutes feeling that he had more energy. He still is getting some chest pain but not nearly as often or as intense. For some reason he discontinued his amiodarone. He still has some dyspnea on exertion as well. He has noted some difficulty swallowing. His primary care physician is working this up. This includes being scheduled for an upper GI and an endoscopy in the near future. He also is going to be fitted for his CPAP mask on March. Past Medical History: Past Medical History: Diagnosis Date Angina pectoris ([facility]) Anxiety Arrhythmia A-fib Asthma CAD (coronary artery disease) Cerebral artery occlusion with cerebral infarction ([facility]) COPD (chronic obstructive pulmonary disease) ([facility]) Depression WATTS (dyspnea on exertion) Fatigue GERD (gastroesophageal reflux disease) History of cardioversion 05/07/2016 Successful conversion of a-fib to SR History of left heart catheterization 05/07/2016 60% stenosis right posterior descending, patent stents in prox, mid & distal RCA, patent stents in med LCx. Findings unchanged from previous study. 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 NSTEMI (non-ST elevated myocardial infarction) ([facility]) ([facility]) 12/2012 NSTEMI (non-ST elevated myocardial infarction) ([facility]) ([facility]) 05/2014 Obesity [place] (myocardial infarction) HIPOLITO (obstructive sleep apnea) HIPOLITO on CPAP PAF (paroxysmal atrial fibrillation) ([facility]) Rheumatoid arthritis(714.0) ([facility]) ST segment elevation myocardial infarction (STEMI) of anterolateral wall, subsequent episode of care ([facility]) ([facility]) TIA (transient ischemic attack) Past Surgical History Past Surgical History: Procedure Laterality Date CAPSULOTOMY, HAND 05/07/2016 CARDIAC CATHETERIZATION N/A 03/01/2023 Performed by Campbell Gonzales MD at [facility] Cardiac Cath/EP Lab CARDIAC PROCEDURE Left 05/2015 CARDIAC PROCEDURE Left 06/03/2017 CARDIAC PROCEDURE Bilateral 01/2010 CARDIAC PROCEDURE Left 09/05/2019 PCI to distal RCA and PL branch CHOLECYSTECTOMY 10/30/2019 CORONARY ANGIOPLASTY WITH STENT PLACEMENT Left 11/2006 restent RCA, FLAKO to CX CORONARY ANGIOPLASTY WITH STENT PLACEMENT Left 05/2014 PTCA /cuttung balloon to instent restenosis RCA CORONARY ANGIOPLASTY WITH STENT PLACEMENT Left 10/2006 DESto prox Rt PAV, mid & dist RCA CORONARY ANGIOPLASTY WITH STENT PLACEMENT Left 11/2014 FLAKO to RCA CORONARY ANGIOPLASTY WITH STENT PLACEMENT Left 10/2007 LFAKO to Prox Rt PAV, mid-dist RCA CORONARY ANGIOPLASTY WITH STENT PLACEMENT Left 03/2009 FLAKO to mid RCA CORONARY ANGIOPLASTY WITH STENT PLACEMENT Left 12/01/2021 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/PCI to prox RCA CORONARY ANGIOPLASTY WITH STENT PLACEMENT Left 10/2013 FLAKO to prox & mid RCA CORONARY ANGIOPLASTY WITH STENT PLACEMENT Left 12/2007 FLAKO to LAD CORONARY ANGIOPLASTY WITH STENT PLACEMENT Bilateral 03/17/2021 [place]ako to the Mid RCA, and the Distal RCA CORONARY ANGIOPLASTY WITH STENT PLACEMENT Left 12/2012 FLAKO to mid RCA & prox-mid Rt GRACE JOINT REPLACEMENT 03/2019 TOTAL HIP ARTHROPLASTY Left 12/2012 Family History Family History Problem Relation Name Age of Onset Diabetes Paternal Grandmother Diabetes Maternal Grandfather Cancer Sister Hypertension Mother Diabetes Sister Diabetes Paternal Grandfather Heart disease Paternal Grandmother Heart disease Paternal Grandfather Cancer Father Diabetes Brother Social History Social History Tobacco Use Smoking status: Never Smokeless tobacco: Never Substance Use Topics Alcohol use: Not Currently Drug use: No Allergies: Allergies Allergen Reactions Penicillins Rash Medications: Current Outpatient Medications Medication Instructions amiodarone (PACERONE) 200 mg, Oral, Daily cholecalciferol (VITAMIN D-3) 800 Units, Oral, Daily clopidogrel (PLAVIX) 75 mg, Oral, Daily Eliquis 5 mg, Oral, 2 times daily isosorbide mononitrate ER (IMDUR) 120 mg, Oral, Daily, Do not crush or chew. metoprolol tartrate (LOPRESSOR) 25 mg, Oral, 2 times daily minoxidil (LONITEN) 5 mg, Oral, 2 times daily nitroglycerin (Nitrostat) 0.[address] 1 tablet under the tongue every 5 minutes as needed for Chest pain. If no relief after 3 tablets, call 9-1-1 immediately. pantoprazole (PROTONIX) 40 mg, Oral, Daily before breakfast, Do not crush, chew, or split. ranolazine (RANEXA) 1,000 mg, Oral, 2 times daily, Do not crush, chew, or split. rosuvastatin (CRESTOR) 40 mg, Oral, Daily spironolactone (ALDACTONE) 25 mg, Oral, 2 times daily torsemide (DEMADEX) 20 mg, Oral, Daily, Patient was also instructed to take additional 20 mg torsemide, if weight gain of more than 2 pounds in 1 day. Review of Systems: Review of Systems Constitutional: Negative for chills and fever. Respiratory: Positive for shortness of breath. Negative for cough. Cardiovascular: Positive for chest pain and palpitations. Negative for leg swelling. Gastrointestinal: Negative for abdominal pain, blood in stool and vomiting. Genitourinary: Negative for hematuria. Neurological: Negative for dizziness and syncope. Physical Examination: Vitals: Vitals: 03/18/23 1041 BP: 122/74 BP Location: Right arm Patient Position: Sitting BP Cuff Size: Large adult Pulse: 64 SpO2: 97% Weight: (!) 307 lb 3.2 oz (139 kg) Height: 6' 2.5 (1.892 m) Body mass index is 38.91 kg/m . Physical Exam Constitutional: Appearance: Normal appearance. He is morbidly obese. HENT: Head: Normocephalic. Eyes: General: No scleral icterus. Right eye: No discharge. Left eye: No discharge. Cardiovascular: Rate and Rhythm: Normal rate and regular rhythm. Pulses: Normal pulses. Radial pulses are 2+ on the right side. Heart sounds: Normal heart sounds. No murmur heard. No gallop. Comments: Right radial catheterization site well healed. Right ulnar pulse 2+.Brisk Capillary refill. Warm to touch. Pulmonary: Effort: Pulmonary effort is normal. Breath sounds: Normal breath sounds and air entry. Abdominal: General: Abdomen is protuberant. Palpations: Abdomen is soft. Musculoskeletal: General: Normal range of motion. Cervical back: Normal range of motion. Right lower leg: No edema. Left lower leg: No edema. Skin: General: Skin is warm and dry. Capillary Refill: Capillary refill takes less than 2 seconds. Neurological: Mental Status: He is alert and oriented to person, place, and time. Psychiatric: Mood and Affect: Mood normal. Laboratory Tests: Lab Results Component Value Date WBC 7.4 02/22/2023 HGB 11.0 (L) 02/22/2023 HCT 32.9 (L) 02/22/2023 MCV 90.8 02/22/2023 PLT 249 02/22/2023 Lab Results Component Value Date GLUCOSE 153 (A) 02/19/2023 CALCIUM 8.6 02/19/2023 NA 142 02/19/2023 K 3.9 02/19/2023 CO2 27 02/19/2023 CL 111 (A) 02/19/2023 BUN 18 02/19/2023 CREATININE 1.58 (A) 02/19/2023 NT PRO BNP Date Value Ref Range Status 09/05/2019 645 (H) 0 - 125 pg/mL Final Lab Results Component Value Date CHLPL 144 08/05/2021 CHLPL 155 06/07/2019 CHOL 135 02/19/2023 CHOL 251 (H) 12/07/2022 Lab Results Component Value Date TRIG 190 (A) 02/19/2023 TRIG 227 (H) 12/07/2022 TRIG 132 08/05/2021 Lab Results Component Value Date HDL 47 02/19/2023 HDL 37 (L) 12/07/2022 HDL 49 08/05/2021 Cardiac Tests: ECG: Encounter Date: 02/22/23 ECG 12 lead - CLINIC PERFORMED Narrative Sinus Rhythm ABNORMAL Inferior myocardial infarction Last Echo: 11/18/2022 Interpretation Summary Left Ventricle: Left ventricle size is normal. Moderately increased wall thickness. Normal left ventricular systolic function. The EF by visual approximation is 55%. Moderate hypokinesis of the following segments: basal inferolateral. Akinesis of the following segments: basal inferior. Right Ventricle: Right ventricle size is normal. Normal systolic function. Left Atrium: Left atrium is mildly dilated. Aorta: Normal sized sinuses of Valsalva. Moderately dilated ascending aorta. Ao ascending diameter is 4.5 cm. No significant valvular abnormalities. Last cardiac catheterization: 03/01/2023 Conclusion Impression: 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 of mid RCA that was previously treated with angioplasty in 11/2021 In-stent restenosis of mid RCA ( 100 % occlusion mid with prior intervention with small distal territory - now left to right collaterals) Patent Lcx and LAD stents Non-obstructive CAD of the Lcx and LAD Plan: - Continue optimal medical management of CAD and HTN - Will add anti-anginal medications for stable angina -Ranolazine will be added Assessment and Plan: 1. CAD in [place] artery Status post left heart cath on March 01, 2023. This demonstrated occlusion of his right coronary artery that was previously stented. He had now developed left to right collateral circulation. Ranexa 500 mg twice a day was added. This has greatly improved his symptoms but does not resolve them completely. I have increased his Ranexa to 1000 mg twice a day. He will continue his torsemide mononitrate 60 mg daily. I have also sent him to our pharmacy to see if he would qualify for a taurus for medication assistance now that he is retired. He will follow-up in approximately 2 weeks. He will continue on clopidogrel 75 mg daily. - Basic metabolic panel; Future - Basic metabolic panel 2. Essential hypertension, benign Well-controlled on his present medication regimen. He will continue minoxidil half a tablet twice a day as well as metoprolol 25 mg twice a da. - Basic metabolic panel; Future - Basic metabolic panel 3. Chronic diastolic heart failure (HCC) \Today he is euvolemic. He will continue his present diuretic regimen of torsemide 20 mg daily and spironolactone 25 mg twice a day. I have ordered a repeat basic metabolic panel for approximately 2 to 3 weeks. 4. PAF (paroxysmal atrial fibrillation) (HCC) For some reason he thought he was supposed to discontinue his amiodarone. I have asked him to resume his amiodarone so that he maintain sinus rhythm. He will continue on Eliquis 5 mg twice a day for his oral anticoagulation. He will likely need to hold his Eliquis for his upcoming EGD. He will contact the office with that date so that we may give him instructions. He should continue his clopidogrel if they require him to discontinue his clopidogrel, he should should begin a baby aspirin while he is off of these 2 medications. 5. Mixed hyperlipidemia Continue rosuvastatin 40 mg daily. He will follow-up in our office in approximately 2 to 3 weeks. He is being fitted for his CPAP mask in approximately 2 weeks. documented in this encounter [facility] 03-18-2023 Instructions DANIELLE Whitehead CNP - 03/18/2023 11:00 AM EDT Resume Amiodarone 200 mg daily Increase ranexa to 1000 mg twice day Call me with the date of the upper GI. documented in this encounter [facility] 03-01-2023 Hospital Discharge instructions Amelia Gilbert RN - 03/01/2023 10:32 AM EDT Call your doctor with any medication questions or if you notice any side effects from your medications. If you are unable to fill your medications, please call your Patrol Inspector immediately. The office number is located with your follow-up appointment information. Call your doctor if any redness or drainage from the wound site. DO NOT stop taking your medication unless instructed to do so by your doctor. Read the drug information material that were given to you and take medications as instructed by your doctor. New drugs may have been added to your medications, that will strengthen your heart and prevent re-stenosis of the coronary arteries. Drink 6 glasses of water (8 ounces each) over the next 24 hours. Water helps clear the dye from your body. No alcoholic beverages for 24 hours. It may interfere with healing. No exercise or sex for 5 days. Call 911 for chest pain, arm pain, nausea, neck pain, dizziness or unusual sweating AND your pain has not relieved with 2 doses of Nitroglycerin. Call your doctor if a lump at the puncture site enlarges or is larger than marble size. Call your doctor for numbness, tingling, or swelling of the fingers, hand or wrist. Call your doctor for increased area or bruising with discoloration extending into the arm. If bleeding occurs, hold pressure with your thumb against the puncture site and your finger against the back of the wrist for 10 minutes, if BLEEDING continues CALL 911. OK to shower. No tub baths, swimming pools or hot tub soaking for three days. Wash site daily with soap and water, dry gently. The healing wound should remain soft and dry. Keep site clean and dry, no soaking of wrist for three days (no cleaning or dish washing). Remove band aid the day after procedure and leave open to air. No bending of affected wrist for 24 hours. DO NOT lift more than three pounds for 3-5 days. No driving for 24 hours. PLEASE CALL YOUR HEART DOCTOR IF YOU CANNOT GET YOUR MEDICATIONS. THE NUMBER IS LISTED WITH YOUR FOLLOW-UP APPOINTMENT. Procedure Sedation Instructions If you have received sedation: you must have someone drive you home You should not drive a car, operate machinery, drink alcohol or perform any activity that requires alertness for the rest of the day. The effects of the sedative should be gone by tomorrow. documented in this encounter [employer] 03-01-2023 Note Formatting of this n ote might be different from the original. Sedation Plan ASA class 3 - patient with severe systemic disease Mallampati class: IV - only hard palate visible. Sedation plan: local anesthesia and minimal sedation Risks, benefits, and alternatives discussed with patient and sibling. Plan discussed with attending. Immediate reassessment prior to sedation: Patient's status reviewed and vital signs assessed; acceptable to perform procedure and proceed to administer sedation as planned. [employer] Phone: 03-01-2023 Note Formatting of this n ote might be different from the original. Sedation Plan ASA class 3 - patient with severe systemic disease Mallampati class: IV - only hard palate visible. Sedation plan: local anesthesia and minimal sedation Risks, benefits, and alternatives discussed with patient and sibling. Plan discussed with attending. Immediate reassessment prior to sedation: Patient's status reviewed and vital signs assessed; acceptable to perform procedure and proceed to administer sedation as planned. [employer] Phone: 03-01-2023 Miscellaneous Notes Sedation Plan ASA class 3 - patient with severe systemic disease Mallampati class: IV - only hard palate visible. Sedation plan: local anesthesia and minimal sedation Risks, benefits, and alternatives discussed with patient and sibling. Plan discussed with attending. Immediate reassessment prior to sedation: Patient's status reviewed and vital signs assessed; acceptable to perform procedure and proceed to administer sedation as planned. documented in this encounter [facility] 02-24-2023 Note [facility] Cardiology [facility] [address] [facility] [address] Dept: [phone] Dept Visit type: Established : 1955 Chief Complaint: Chief Complaint Patient presents with Follow-up History of Present Illness: Shannon Dickerson is a 67 y.o. male Today I had the opportunity to see this patient for a follow-up visit. Over the last few months he has noted increasing amounts of angina. His angina occurs predictably after he has had a meal and exercises. His last catheterization was performed in November 2021. At that time the RCA was occluded and was reopened with only a small twig distal to the area of occlusion. His left coronary artery has been stented in both territories. He has been on good medical therapy and despite this continues to be quite disabled with angina. Past Medical History: Medical History Past Medical History: Diagnosis Date Angina pectoris ([facility]) Anxiety Arrhythmia A-fib Asthma CAD (coronary artery disease) Cerebral artery occlusion with cerebral infarction ([facility]) COPD (chronic obstructive pulmonary disease) ([facility]) Depression WATTS (dyspnea on exertion) Fatigue GERD (gastroesophageal reflux disease) History of cardioversion 05/07/2016 Successful conversion of a-fib to SR History of left heart catheterization 05/07/2016 60% stenosis right posterior descending, patent stents in prox, mid & distal RCA, patent stents in med LCx. Findings unchanged from previous study. 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 correction current use of anticoagulant NSTEMI (non-ST elevated myocardial infarction) (CMS/HCC) ([facility]) 12/2012 NSTEMI (non-ST elevated myocardial infarction) (CMS/HCC) ([facility]) 05/2014 Obesity [place] (myocardial infarction) HIPOLITO (obstructive sleep apnea) HIPOLITO on CPAP PAF (paroxysmal atrial fibrillation) ([facility]) Rheumatoid arthritis(714.0) ([facility]) ST segment elevation myocardial infarction (STEMI) of anterolateral wall, subsequent episode of care ([facility]) ([facility]) TIA (transient ischemic attack) Past Surgical History Surgical History Past Surgical History: Procedure Laterality Date CAPSULOTOMY, HAND 05/07/2016 CARDIAC PROCEDURE Left 05/2015 CARDIAC PROCEDURE Left 06/03/2017 CARDIAC PROCEDURE Bilateral 01/2010 CARDIAC PROCEDURE Left 09/05/2019 PCI to distal RCA and PL branch CHOLECYSTECTOMY 10/30/2019 CORONARY ANGIOPLASTY WITH STENT PLACEMENT Left 11/2006 restent RCA, FLAKO to CX CORONARY ANGIOPLASTY WITH STENT PLACEMENT Left 05/2014 PTCA /cuttung balloon to instent restenosis RCA CORONARY ANGIOPLASTY WITH STENT PLACEMENT Left 10/2006 DESto prox Rt PAV, mid & dist RCA CORONARY ANGIOPLASTY WITH STENT PLACEMENT Left 11/2014 FLAKO to RCA CORONARY ANGIOPLASTY WITH STENT PLACEMENT Left 10/2007 FLAKO to Prox Rt PAV, mid-dist RCA CORONARY ANGIOPLASTY WITH STENT PLACEMENT Left 03/2009 FLAKO to mid RCA CORONARY ANGIOPLASTY WITH STENT PLACEMENT Left 12/01/2021 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/PCI to prox RCA CORONARY ANGIOPLASTY WITH STENT PLACEMENT Left 10/2013 FLAKO to prox & mid RCA CORONARY ANGIOPLASTY WITH STENT PLACEMENT Left 12/2007 FLAKO to LAD CORONARY ANGIOPLASTY WITH STENT PLACEMENT Bilateral 03/17/2021 Flako to the Mid RCA, and the Distal RCA CORONARY ANGIOPLASTY WITH STENT PLACEMENT Left 12/2012 FLAKO to mid RCA & prox-mid Rt GRACE JOINT REPLACEMENT 03/2019 TOTAL HIP ARTHROPLASTY Left 12/2012 Family History Family History Family History Problem Relation Name Age of Onset Diabetes Paternal Grandmother Diabetes Maternal Grandfather Cancer Sister Hypertension Mother Diabetes Sister Diabetes Paternal Grandfather Heart disease Paternal Grandmother Heart disease Paternal Grandfather Cancer Father Diabetes Brother Social History Social History Tobacco Use Smoking status: Never Smokeless tobacco: Never Substance Use Topics Alcohol use: Not Currently Drug use: No Allergies: Allergies Allergen Reactions Penicillins Rash Medications: Current Outpatient Medications: amiodarone (Pacerone) 200 MG tablet, Take 1 tablet by mouth daily., Disp: , Rfl: cholecalciferol (Vitamin D-3) 20 MCG (800 UNIT) tablet, Take 800 Units by mouth daily., Disp: , Rfl: clopidogrel (Plavix) 75 MG tablet, Take 1 tablet (75 mg) by mouth daily., Disp: 90 tablet, Rfl: 3 Eliquis 5 MG tablet, TAKE ONE TABLET BY MOUTH TWICE DAILY, Disp: 180 tablet, Rfl: 3 isosorbide mononitrate ER (Imdur) 60 MG 24 hr tablet, Take 2 tablets (120 mg) by mouth daily. Do not crush or chew., Disp: 90 tablet, Rfl: 3 metoprolol tartrate (Lopressor) 25 MG tablet, Take 1 tablet (25 mg) by mouth 2 times daily., Disp: 60 tablet, Rfl: 1 minoxidil (Loniten) 10 MG tablet, Take 0.5 tablets by mouth 2 times daily., Disp: , Rfl: nitroglycerin (Nitrostat) 0.4 MG SL tablet, Place 1 tablet under the tongue every 5 min (more content not included)... [facility] 02-24-2023 Note [facility] Cardiology [facility] [address] [place] [id number] Dept: [phone] Dept Visit type: Established : 1955 Chief Complaint: Chief Complaint Patient presents with Follow-up History of Present Illness: Shannon Dickerson is a 67 y.o. male Today I had the opportunity to see this patient for a follow-up visit. Over the last few months he has noted increasing amounts of angina. His angina occurs predictably after he has had a meal and exercises. His last catheterization was performed in November 2021. At that time the RCA was occluded and was reopened with only a small twig distal to the area of occlusion. His left coronary artery has been stented in both territories. He has been on good medical therapy and despite this continues to be quite disabled with angina. Past Medical History: Medical History Past Medical History: Diagnosis Date Angina pectoris (HCC) Anxiety Arrhythmia A-fib Asthma CAD (coronary artery disease) Cerebral artery occlusion with cerebral infarction (HCC) COPD (chronic obstructive pulmonary disease) (HCC) Depression WATTS (dyspnea on exertion) Fatigue GERD (gastroesophageal reflux disease) History of cardioversion 05/07/2016 Successful conversion of a-fib to SR History of left heart catheterization 05/07/2016 60% stenosis right posterior descending, patent stents in prox, mid & distal RCA, patent stents in med LCx. Findings unchanged from previous study. 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 NSTEMI (non-ST elevated myocardial infarction) ([facility]) ([facility]) 12/2012 NSTEMI (non-ST elevated myocardial infarction) ([facility]) ([facility]) 05/2014 Obesity [place] (myocardial infarction) HIPOLITO (obstructive sleep apnea) HIPOLITO on CPAP PAF (paroxysmal atrial fibrillation) ([facility]) Rheumatoid arthritis(714.0) ([facility]) ST segment elevation myocardial infarction (STEMI) of anterolateral wall, subsequent episode of care ([facility]) ([facility]) TIA (transient ischemic attack) Past Surgical History Surgical History Past Surgical History: Procedure Laterality Date CAPSULOTOMY, HAND 05/07/2016 CARDIAC PROCEDURE Left 05/2015 CARDIAC PROCEDURE Left 06/03/2017 CARDIAC PROCEDURE Bilateral 01/2010 CARDIAC PROCEDURE Left 09/05/2019 PCI to distal RCA and PL branch CHOLECYSTECTOMY 10/30/2019 CORONARY ANGIOPLASTY WITH STENT PLACEMENT Left 11/2006 restent RCA, FLAKO to CX CORONARY ANGIOPLASTY WITH STENT PLACEMENT Left 05/2014 PTCA /cuttung balloon to instent restenosis RCA CORONARY ANGIOPLASTY WITH STENT PLACEMENT Left 10/2006 DESto prox Rt PAV, mid & dist RCA CORONARY ANGIOPLASTY WITH STENT PLACEMENT Left 11/2014 FLAKO to RCA CORONARY ANGIOPLASTY WITH STENT PLACEMENT Left 10/2007 FLAKO to Prox Rt PAV, mid-dist RCA CORONARY ANGIOPLASTY WITH STENT PLACEMENT Left 03/2009 FLAKO to mid RCA CORONARY ANGIOPLASTY WITH STENT PLACEMENT Left 12/01/2021 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/PCI to prox RCA CORONARY ANGIOPLASTY WITH STENT PLACEMENT Left 10/2013 FLAKO to prox & mid RCA CORONARY ANGIOPLASTY WITH STENT PLACEMENT Left 12/2007 FLAKO to LAD CORONARY ANGIOPLASTY WITH STENT PLACEMENT Bilateral 03/17/2021 Flako to the Mid RCA, and the Distal RCA CORONARY ANGIOPLASTY WITH STENT PLACEMENT Left 12/2012 FLAKO to mid RCA & prox-mid Rt GRACE JOINT REPLACEMENT 03/2019 TOTAL HIP ARTHROPLASTY Left 12/2012 Family History Family History Family History Problem Relation Name Age of Onset Diabetes Paternal Grandmother Diabetes Maternal Grandfather Cancer Sister Hypertension Mother Diabetes Sister Diabetes Paternal Grandfather Heart disease Paternal Grandmother Heart disease Paternal Grandfather Cancer Father Diabetes Brother Social History Social History Tobacco Use Smoking status: Never Smokeless tobacco: Never Substance Use Topics Alcohol use: Not Currently Drug use: No Allergies: Allergies Allergen Reactions Penicillins Rash Medications: Current Outpatient Medications: amiodarone (Pacerone) 200 MG tablet, Take 1 tablet by mouth daily., Disp: , Rfl: cholecalciferol (Vitamin D-3) 20 MCG (800 UNIT) tablet, Take 800 Units by mouth daily., Disp: , Rfl: clopidogrel (Plavix) 75 MG tablet, Take 1 tablet (75 mg) by mouth daily., Disp: 90 tablet, Rfl: 3 Eliquis 5 MG tablet, TAKE ONE TABLET BY MOUTH TWICE DAILY, Disp: 180 tablet, Rfl: 3 isosorbide mononitrate ER (Imdur) 60 MG 24 hr tablet, Take 2 tablets (120 mg) by mouth daily. Do not crush or chew., Disp: 90 tablet, Rfl: 3 metoprolol tartrate (Lopressor) 25 MG tablet, Take 1 tablet (25 mg) by mouth 2 times daily., Disp: 60 tablet, Rfl: 1 minoxidil (Loniten) 10 MG tablet, Take 0.5 tablets by mouth 2 times daily., Disp: , Rfl: nitroglycerin (Nitrostat) 0.4 MG SL tablet, Place 1 tablet under the tongue every 5 min (more content not included)... [facility] 02-22-2023 History of Present illness Narrative [facility] Cardiology [facility] [address] [facility] [address] Dept: [phone] Dept Visit type: Established : 1955 Chief Complaint: Chief Complaint Patient presents with Follow-up History of Present Illness: Shannon Dickerson is a 67 y.o. male Today I had the opportunity to see this patient for a follow-up visit. Over the last few months he has noted increasing amounts of angina. His angina occurs predictably after he has had a meal and exercises. His last catheterization was performed in November 2021. At that time the RCA was occluded and was reopened with only a small twig distal to the area of occlusion. His left coronary artery has been stented in both territories. He has been on good medical therapy and despite this continues to be quite disabled with angina. Past Medical History: Past Medical History: Diagnosis Date Angina pectoris (HCC) Anxiety Arrhythmia A-fib Asthma CAD (coronary artery disease) Cerebral artery occlusion with cerebral infarction (HCC) COPD (chronic obstructive pulmonary disease) (HCC) Depression WATTS (dyspnea on exertion) Fatigue GERD (gastroesophageal reflux disease) History of cardioversion 05/07/2016 Successful conversion of a-fib to SR History of left heart catheterization 05/07/2016 60% stenosis right posterior descending, patent stents in prox, mid & distal RCA, patent stents in med LCx. Findings unchanged from previous study. 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 NSTEMI (non-ST elevated myocardial infarction) ([facility]) ([facility]) 12/2012 NSTEMI (non-ST elevated myocardial infarction) ([facility]) ([facility]) 05/2014 Obesity [place] (myocardial infarction) HIPOLITO (obstructive sleep apnea) HIPOLITO on CPAP PAF (paroxysmal atrial fibrillation) ([facility]) Rheumatoid arthritis(714.0) ([facility]) ST segment elevation myocardial infarction (STEMI) of anterolateral wall, subsequent episode of care ([facility]) ([facility]) TIA (transient ischemic attack) Past Surgical History Past Surgical History: Procedure Laterality Date CAPSULOTOMY, HAND 05/07/2016 CARDIAC PROCEDURE Left 05/2015 CARDIAC PROCEDURE Left 06/03/2017 CARDIAC PROCEDURE Bilateral 01/2010 CARDIAC PROCEDURE Left 09/05/2019 PCI to distal RCA and PL branch CHOLECYSTECTOMY 10/30/2019 CORONARY ANGIOPLASTY WITH STENT PLACEMENT Left 11/2006 restent RCA, FLAKO to CX CORONARY ANGIOPLASTY WITH STENT PLACEMENT Left 05/2014 PTCA /cuttung balloon to instent restenosis RCA CORONARY ANGIOPLASTY WITH STENT PLACEMENT Left 10/2006 DESto prox Rt PAV, mid & dist RCA CORONARY ANGIOPLASTY WITH STENT PLACEMENT Left 11/2014 FLAKO to RCA CORONARY ANGIOPLASTY WITH STENT PLACEMENT Left 10/2007 FLAKO to Prox Rt PAV, mid-dist RCA CORONARY ANGIOPLASTY WITH STENT PLACEMENT Left 03/2009 FLAKO to mid RCA CORONARY ANGIOPLASTY WITH STENT PLACEMENT Left 12/01/2021 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/PCI to prox RCA CORONARY ANGIOPLASTY WITH STENT PLACEMENT Left 10/2013 FLAKO to prox & mid RCA CORONARY ANGIOPLASTY WITH STENT PLACEMENT Left 12/2007 FLAKO to LAD CORONARY ANGIOPLASTY WITH STENT PLACEMENT Bilateral 03/17/2021 Flako to the Mid RCA, and the Distal RCA CORONARY ANGIOPLASTY WITH STENT PLACEMENT Left 12/2012 FLAKO to mid RCA & prox-mid Rt GRACE JOINT REPLACEMENT 03/2019 TOTAL HIP ARTHROPLASTY Left 12/2012 Family History Family History Problem Relation Name Age of Onset Diabetes Paternal Grandmother Diabetes Maternal Grandfather Cancer Sister Hypertension Mother Diabetes Sister Diabetes Paternal Grandfather Heart disease Paternal Grandmother Heart disease Paternal Grandfather Cancer Father Diabetes Brother Social History Social History Tobacco Use Smoking status: Never Smokeless tobacco: Never Substance Use Topics Alcohol use: Not Currently Drug use: No Allergies: Allergies Allergen Reactions Penicillins Rash Medications: Current Outpatient Medications: amiodarone (Pacerone) 200 MG tablet, Take 1 tablet by mouth daily., Disp: , Rfl: cholecalciferol (Vitamin D-3) 20 MCG (800 UNIT) tablet, Take 800 Units by mouth daily., Disp: , Rfl: clopidogrel (Plavix) 75 MG tablet, Take 1 tablet (75 mg) by mouth daily., Disp: 90 tablet, Rfl: 3 Eliquis 5 MG tablet, TAKE ONE TABLET BY MOUTH TWICE DAILY, Disp: 180 tablet, Rfl: 3 isosorbide mononitrate ER (Imdur) 60 MG 24 hr tablet, Take 2 tablets (120 mg) by mouth daily. Do not crush or chew., Disp: 90 tablet, Rfl: 3 metoprolol tartrate (Lopressor) 25 MG tablet, Take 1 tablet (25 mg) by mouth 2 times daily., Disp: 60 tablet, Rfl: 1 minoxidil (Loniten) 10 MG tablet, Take 0.5 tablets by mouth 2 times daily., Disp: , Rfl: nitroglycerin (Nitrostat) 0.4 MG SL tablet, Place 1 tablet under the tongue every 5 minutes as needed for Chest pain. If no relief after 3 tablets, call immediately., Disp: 25 tablet, Rfl: 3 pantoprazole (Protonix) 40 MG EC tablet, Take 1 tablet (40 mg) by mouth every morning (before breakfast). Do not crush, chew, or split., Disp: 90 tablet, Rfl: 3 rosuvastatin (Crestor) 40 MG tablet, Take 1 tablet (40 mg) by mouth Nightly., Disp: 30 tablet, Rfl: 1 torsemide (Demadex) 20 MG tablet, Take 1 tablet (20 mg) by mouth daily. Patient was also instructed to take additional 20 mg torsemide, if weight gain of more than 2 pounds in 1 day., Disp: 30 tablet, Rfl: 1 spironolactone (Aldactone) 25 MG tablet, Take 1 tablet (25 mg) by mouth 2 times daily. (Patient not taking: Reported on 02/02/2023), Disp: 180 tablet, Rfl: 3 Review of Systems: Review of Systems Constitutional: Negative for activity change and fatigue. HENT: Negative for nosebleeds. Eyes: Negative for visual disturbance. Respiratory: Positive for shortness of breath (with chest pain). Negative for cough and wheezing. Cardiovascular: Positive for chest pain (still having chest pain despite increase in Imdur to 120 mg). Negative for palpitations and leg swelling. Gastrointestinal: Negative for abdominal pain, blood in stool, constipation, diarrhea, nausea and vomiting. Musculoskeletal: Negative for myalgias. Skin: Negative for rash. Neurological: Positive for light-headedness. Negative for dizziness and syncope. Hematological: Does not bruise/bleed easily. Psychiatric/Behavioral: Negative for dysphoric mood and suicidal ideas. Physical Examination: Vitals: Vitals: 02/22/23 1333 BP: (!) 142/76 BP Location: Left arm Patient Position: Sitting BP Cuff Size: Adult Pulse: 71 SpO2: 96% Weight: (!) 308 lb 3.2 oz (140 kg) Height: 6' 2 (1.88 m) Body mass index is 39.57 kg/m . Physical Exam Vitals reviewed. Constitutional: Appearance: He is obese. HENT: Head: Normocephalic. Cardiovascular: Rate and Rhythm: Normal rate and regular rhythm. Heart sounds: Normal heart sounds. No murmur heard. No gallop. Pulmonary: Effort: Pulmonary effort is normal. Breath sounds: Normal breath sounds. Musculoskeletal: General: No swelling. Cervical back: Neck supple. Skin: General: Skin is warm and dry. Neurological: General: No focal deficit present. Mental Status: He is alert and oriented to person, place, and time. Psychiatric: Mood and Affect: Mood normal. Behavior: Behavior normal. The electrocardiogram today demonstrates a sinus rhythm with small inferior Q waves consistent with his prior inferior infarction. Laboratory Tests: Lab Results Component Value Date WBC 8.5 01/29/2023 HGB 10.9 01/29/2023 HCT 32.4 01/29/2023 MCV 91.8 01/29/2023 PLT 228 01/29/2023 Lab Results Component Value Date GLUCOSE 111 (H) 12/30/2022 CALCIUM 9.0 01/29/2023 NA 140 01/29/2023 K 4.4 01/29/2023 CO2 26 01/29/2023 CL 109 (A) 01/29/2023 BUN 42 (A) 01/29/2023 CREATININE 1.57 (H) 12/30/2022 @LASTCMP@ Lab Results Component Value Date CHLPL 144 08/05/2021 CHLPL 155 06/07/2019 CHOL 251 (H) 12/07/2022 Lab Results Component Value Date TRIG 227 (H) 12/07/2022 TRIG 132 08/05/2021 TRIG 98 06/07/2019 Lab Results Component Value Date HDL 37 (L) 12/07/2022 HDL 49 08/05/2021 HDL 50 06/07/2019 Lab Results Component Value Date LDLCALC 169 (H) 12/07/2022 LDLCALC 69 08/05/2021 LDLCALC 85 06/07/2019 NT PRO BNP Date Value Ref Range Status 09/05/2019 645 (H) 0 - 125 pg/mL Final Assessment and Plan: 1. Atherosclerotic heart disease of [place] coronary artery with other forms of angina pectoris ([facility]) 2. NSTEMI (non-ST elevated myocardial infarction) ([facility]) ([facility]) 3. Hypertension, unspecified type 4. PAF (paroxysmal atrial fibrillation) ([facility]) My summary and recommendation today is to continue with his present medical program. We will schedule an elective catheterization to exclude new left coronary artery stenosis which may be responsible for his angina. Given the fact he had a cath done last year and was doing well until recently raises the suspicion that there is new left coronary disease. I discussed this in detail with him today here in the office. He is willing to proceed with an outpatient cath. documented in this encounter [facility] 02-10-2023 Telephone encounter Note PC to pharmacy. New Rx was sent in yesterday for patient to take two 60 mg tablets daily but quantity sent was only 90. Ok to dispense 180 tablets [facility] 02-10-2023 Miscellaneous Notes PC to pharmacy. New Rx was sent in yesterday for patient to take two 60 mg tablets daily but quantity sent was only 90. Ok to dispense 180 tablets [facility] pharmacy requesting clarification on Imdur [phone] PC to patient with medication recommendations. He verbalized understanding Thanks for the update. Have him increase Imdur to 120 mg once daily and see if any improvement. Monitor blood pressure and let us know if too low. Patient stated he has not noticed much of a difference being on the protonix not sure if just not been on it long enough and just wanted to give a call in please advise documented in this encounter [facility] [employer] 02-10-2023 Telephone encounter Note [facility] pharmacy requesting clarification on Imdur [phone] [facility] [employer] 02-09-2023 Telephone encounter Note PC to patient with medication recommendations. He verbalized understanding [facility] [employer] 02-09-2023 Telephone encounter Note Thanks for the update. Have him increase Imdur to 120 mg once daily and see if any improvement. Monitor blood pressure and let us know if too low. [facility] [employer] 02-09-2023 Telephone encounter Note Patient stated he has not noticed much of a difference being on the protonix not sure if just not been on it long enough and just wanted to give a call in please advise [facility] 02-02-2023 History of Present illness Narrative Images from the original note were not included. [facility] Cardiovascular Medicine [facility] [address] [facility] [address] Dept: [phone] Dept Loc: [phone] DATE of SERVICE: 02/02/2023 DATE of : 1955 PRIMARY CARE PHYSICIAN: Elizabeth Logan MD Visit type: ESTABLISHED Chief Complaint: Chief Complaint Patient presents with Shortness of Breath A lot Chest Pain May be due to acid reflux Dizziness Once in awhile Assessment and Plan 1. WATTS (dyspnea on exertion) Stable at this juncture. No signs of volume overload at this juncture 2. CAD in [place] artery New LBBB on ECG with symptoms of exertional chest pain that tends to be worse after eating. Will add PPI and reassess symptoms (via phone) in one week. If no change, increase long acting nitrates and determine if symptoms resolve. Will plan followup with Dr Gonzales to reassess. Recent COVID - consider CTA of chest if symptoms persist (PE?) 3. 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 On iron supplement at this time. No sign of DVT. 5. Stage 3a chronic kidney disease (HCC) Rising BUN/Cr. Followed by Dr Benton 6. Primary hypertension Controlled - ECG 12 lead - CLINIC PERFORMED 7. Other hyperlipidemia Changed to crestor back in November for significant elevation in lipids. Will reassess in the near future. Followup: Follow up in about 2 weeks (around 02/16/2023) for Dr Gonzales. Subjective History of Present Illness: Shannon Dickerson is a 67 y.o. male followed by Dr Gonzales with a history of CAD, COPD, PAF with chronic OAC, HLP, and HTN. HIPOLITO for which he is working to get treated but is having a hard time adjusting to any device. Echocardiogram October 2022: Left Ventricle: Left ventricle size is normal. Moderately increased wall thickness. Normal left ventricular systolic function. The EF by visual approximation is 55%. Moderate hypokinesis of the following segments: basal inferolateral. Akinesis of the following segments: basal inferior. Right Ventricle: Right ventricle size is normal. Normal systolic function. Left Atrium: Left atrium is mildly dilated. Aorta: Normal sized sinuses of Valsalva. Moderately dilated ascending aorta. Ao ascending diameter is 4.5 cm. No significant valvular abnormalities. Last ischemic evaluation November 2021 (Dr Gonzales) with patent LAD and LCx stents with new 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 of mRCA (ISR). L-R collaterals noted and attempts to revascularize this lesion were unsuccessful. Medical management pursued. When last seen in December 2022, he was recovering from COVID. Required hospitalization and ALBINA prompted interruption of diuretic therapy. He was feeling very well at that time. Following that office visit, he sustained a leg hematoma that required several courses of antibiotics for treatment. In this timeframe, he has had a change in symptoms and reports chest pain/tightness that radiates into neck and ears. Associated with dyspnea. Has not used any SL nitroglycerin. Recovers within a few minutes of rest. No nocturnal pain or rest pain. Seems to be worse after eating. Labs 01/29 with H/H 10.9/32.4, elevated BUN/Cr and decline in GFR to 38 mL/min. He completed his antibiotics approximately 2 weeks ago. ECG with LBBB which was not present two months ago. History and Review of Systems Past Medical History: Past Medical History: Diagnosis Date Angina pectoris (HCC) Anxiety Arrhythmia A-fib Asthma CAD (coronary artery disease) Cerebral artery occlusion with cerebral infarction (HCC) COPD (chronic obstructive pulmonary disease) (HCC) Depression WATTS (dyspnea on exertion) Fatigue GERD (gastroesophageal reflux disease) History of cardioversion 05/07/2016 Successful conversion of a-fib to SR History of left heart catheterization 05/07/2016 60% stenosis right posterior descending, patent stents in prox, mid & distal RCA, patent stents in med LCx. Findings unchanged from previous study. 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 NSTEMI (non-ST elevated myocardial infarction) ([facility]) ([facility]) 12/2012 NSTEMI (non-ST elevated myocardial infarction) ([facility]) ([facility]) 05/2014 Obesity Old [place] (myocardial infarction) HIPOLITO (obstructive sleep apnea) HIPOLITO on CPAP PAF (paroxysmal atrial fibrillation) ([facility]) ([facility]) Rheumatoid arthritis(714.0) ([facility]) ST segment elevation myocardial infarction (STEMI) of anterolateral wall, subsequent episode of care ([facility]) ([facility]) TIA (transient ischemic attack) Past Surgical History Past Surgical History: Procedure Laterality Date CAPSULOTOMY, HAND 05/07/2016 CARDIAC PROCEDURE Left 05/2015 CARDIAC PROCEDURE Left 06/03/2017 CARDIAC PROCEDURE Bilateral 01/2010 CARDIAC PROCEDURE Left 09/05/2019 PCI to distal RCA and PL branch CHOLECYSTECTOMY 10/30/2019 CORONARY ANGIOPLASTY WITH STENT PLACEMENT Left 11/2006 restent RCA, FLAKO to CX CORONARY ANGIOPLASTY WITH STENT PLACEMENT Left 05/2014 PTCA /cuttung balloon to instent restenosis RCA CORONARY ANGIOPLASTY WITH STENT PLACEMENT Left 10/2006 DESto prox Rt PAV, mid & dist RCA CORONARY ANGIOPLASTY WITH STENT PLACEMENT Left 11/2014 FLAKO to RCA CORONARY ANGIOPLASTY WITH STENT PLACEMENT Left 10/2007 FLAKO to Prox Rt PAV, mid-dist RCA CORONARY ANGIOPLASTY WITH STENT PLACEMENT Left 03/2009 FLAKO to mid RCA CORONARY ANGIOPLASTY WITH STENT PLACEMENT Left 12/01/2021 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/PCI to prox RCA CORONARY ANGIOPLASTY WITH STENT PLACEMENT Left 10/2013 FLAKO to prox & mid RCA CORONARY ANGIOPLASTY WITH STENT PLACEMENT Left 12/2007 FLAKO to LAD CORONARY ANGIOPLASTY WITH STENT PLACEMENT Bilateral 03/17/2021 Flako to the Mid RCA, and the Distal RCA CORONARY ANGIOPLASTY WITH STENT PLACEMENT Left 12/2012 FLAKO to mid RCA & prox-mid Rt GRACE JOINT REPLACEMENT 03/2019 TOTAL HIP ARTHROPLASTY Left 12/2012 Family History Family History Problem Relation Name Age of Onset Diabetes Paternal Grandmother Diabetes Maternal Grandfather Cancer Sister Hypertension Mother Diabetes Sister Diabetes Paternal Grandfather Heart disease Paternal Grandmother Heart disease Paternal Grandfather Cancer Father Diabetes Brother Social History reports that he has never smoked. He has never used smokeless tobacco. He reports that he does not currently use alcohol. He reports that he does not use drugs. Allergies: Allergies Allergen Reactions Penicillins Rash Medications: Current Outpatient Medications: amiodarone (Pacerone) 200 MG tablet, Take 1 tablet by mouth daily., Disp: , Rfl: cholecalciferol (Vitamin D-3) 20 MCG (800 UNIT) tablet, Take 800 Units by mouth daily., Disp: , Rfl: Eliquis 5 MG tablet, TAKE ONE TABLET BY MOUTH TWICE DAILY, Disp: 180 tablet, Rfl: 3 isosorbide mononitrate ER (Imdur) 60 MG 24 hr tablet, Take 1 tablet (60 mg) by mouth daily. Do not crush or chew., Disp: 90 tablet, Rfl: 3 metoprolol tartrate (Lopressor) 25 MG tablet, Take 1 tablet (25 mg) by mouth 2 times daily., Disp: 60 tablet, Rfl: 1 minoxidil (Loniten) 10 MG tablet, Take 0.5 tablets by mouth 2 times daily., Disp: , Rfl: nitroglycerin (Nitrostat) 0.4 MG SL tablet, Place 1 tablet under the tongue every 5 minutes as needed for Chest pain. If no relief after 3 tablets, call immediately., Disp: 25 tablet, Rfl: 3 rosuvastatin (Crestor) 40 MG tablet, Take 1 tablet (40 mg) by mouth Nightly., Disp: 30 tablet, Rfl: 1 torsemide (Demadex) 20 MG tablet, Take 1 tablet (20 mg) by mouth daily. Patient was also instructed to take additional 20 mg torsemide, if weight gain of more than 2 pounds in 1 day., Disp: 30 tablet, Rfl: 1 clopidogrel (Plavix) 75 MG tablet, Take 1 tablet (75 mg) by mouth daily., Disp: 90 tablet, Rfl: 3 pantoprazole (Protonix) 40 MG EC tablet, Take 1 tablet (40 mg) by mouth every morning (before breakfast). Do not crush, chew, or split., Disp: 90 tablet, Rfl: 3 spironolactone (Aldactone) 25 MG tablet, Take 1 tablet (25 mg) by mouth 2 times daily. (Patient not taking: Reported on 02/02/2023), Disp: 180 tablet, Rfl: 3 Review of Systems: Review of Systems Constitutional: Negative for chills, diaphoresis and fever. HENT: Negative for nosebleeds. Eyes: Negative for visual disturbance. Respiratory: Positive for shortness of breath. Negative for cough and wheezing. Cardiovascular: Positive for chest pain. Negative for palpitations and leg swelling. Gastrointestinal: Negative for abdominal pain, blood in stool, constipation, diarrhea, nausea and vomiting. Musculoskeletal: Negative for myalgias. Skin: Negative for rash. Neurological: Positive for light-headedness. Negative for dizziness and syncope. Hematological: Does not bruise/bleed easily. Psychiatric/Behavioral: Negative for dysphoric mood and suicidal ideas. Objective Physical Examination: Vitals: Vitals: 02/02/23 0839 BP: 122/82 BP Location: Right arm Patient Position: Sitting BP Cuff Size: Adult Pulse: 62 SpO2: 98% Weight: (!) 301 lb (137 kg) Height: 6' 2 (1.88 m) Body mass index is 38.65 kg/m . Physical Exam Vitals reviewed. Constitutional: Appearance: Normal appearance. HENT: Head: Normocephalic. Mouth/Throat: Pharynx: No oropharyngeal exudate. Eyes: Pupils: Pupils are equal, round, and reactive to light. Cardiovascular: Rate and Rhythm: Normal rate and regular rhythm. Pulses: Normal pulses. Heart sounds: Normal heart sounds. No murmur heard. No gallop. Pulmonary: Effort: No respiratory distress. Breath sounds: Normal breath sounds. No wheezing or rales. Abdominal: General: Bowel sounds are normal. There is no distension. Palpations: Abdomen is soft. Tenderness: There is no abdominal tenderness. Comments: Obesity Musculoskeletal: General: Normal range of motion. Cervical back: Normal range of motion. Right lower leg: No edema. Left lower leg: No edema. Skin: General: Skin is warm and dry. Neurological: General: No focal deficit present. Mental Status: He is alert and oriented to person, place, and time. Data Reviewed Laboratory Tests: Lab Results Component Value Date WBC 8.5 01/29/2023 HGB 10.9 01/29/2023 HCT 32.4 01/29/2023 MCV 91.8 01/29/2023 PLT 228 01/29/2023 Lab Results Component Value Date GLUCOSE 111 (H) 12/30/2022 CALCIUM 9.0 01/29/2023 NA 140 01/29/2023 K 4.4 01/29/2023 CO2 26 01/29/2023 CL 109 (A) 01/29/2023 BUN 42 (A) 01/29/2023 CREATININE 1.57 (H) 12/30/2022 Lab Results Component Value Date CHLPL 144 08/05/2021 CHLPL 155 06/07/2019 CHOL 251 (H) 12/07/2022 Lab Results Component Value Date TRIG 227 (H) 12/07/2022 TRIG 132 08/05/2021 TRIG 98 06/07/2019 Lab Results Component Value Date HDL 37 (L) 12/07/2022 HDL 49 08/05/2021 HDL 50 06/07/2019 Cardiac Tests: ECG: Encounter Date: 12/06/22 ECG 12 lead Result Value Heart Rate 80 QRSD Interval 110 QT Interval 385 QTC Interval 445 P [place] 35 QRS [place] 25 T Wave [place] 19 [place] Interval 174 Impression Sinus rhythm Inferior infarct, old Electronically Signed On 12-07-2022 11:24:10 EDT by Stephan Crawley Last Echo: October 2022 Left Ventricle: Left ventricle size is normal. Moderately increased wall thickness. Normal left ventricular systolic function. The EF by visual approximation is 55%. Moderate hypokinesis of the following segments: basal inferolateral. Akinesis of the following segments: basal inferior. Right Ventricle: Right ventricle size is normal. Normal systolic function. Left Atrium: Left atrium is mildly dilated. Aorta: Normal sized sinuses of Valsalva. Moderately dilated ascending aorta. Ao ascending diameter is 4.5 cm. No significant valvular abnormalities. Last Stress Test: 09/08/2019 SUMMARY: 1. Left ventricle: Systolic function is normal by the biplane method of disks. The estimated ejection fraction is 59%. 2. Stress ECG conclusions: Ross scoring: exercise time of 6.5 min; maximum ST deviation of 0 mm; no angina; resulting score is 6.5. This score predicts a low risk of cardiac events. 3. Stress echo: The basal and mid inferoseptal wall shows worsening with stress, indicating stress-induced ischemia. Last Cardiac Catheterization: November 01, 2021 SUMMARY: 1. 66 M with prior PCI and stenting to LAD, LCx and RCA came in with angina. 2. Left ventricle: Systolic function is normal. The estimated ejection fraction is 55-60%. Dyskinesis of the basal inferior myocardium. 3. Left circumflex: Prior intervention: stent, in the proximal left circumflex. The intervened segment is patent. 4. Right coronary: Prior intervention #1: stent, in the proximal RCA. The intervened segment is patent. Prior intervention #2: stent, in the mid RCA. Proximal vessel lesion: The diagnostic study demonstrated a 100%in-stent recurrent chronic total occlusion, at the site of prior intervention #2. The lesion is a likely culprit for the patient's anginal symptoms. The lesion presents an ACC/AHA type A/B low/moderate risk lesion for intervention. Angioplasty was performed, resulting in no improvement in angiographic appearance (see 1st lesion). Following intervention, there is a residual 100% stenosis with JORDAN grade 0 flow (no flow). Mid-vessel lesion: Angioplasty was performed. 5. Elevated left heart filling pressure. 6. Unsuccessful attempt to revascularise the mid RCA instent restenosis 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. IMPRESSIONS: 1. Patent stent in proximal LAD. 2. Patent stent in proximal-mid LCx. 3. Mid RCA instent restenosis with 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 and left to right collaterals. 4. Unsuccessful attempt to revascularize mid RCA instent restenosis 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. Guidewire was passed across the occlusion and multiple balloon inflations with 2.0 mm and 3.0 mm without flow into the distal vessels ( review of the last cath shows very poor vessels distal to the stents) 5. Collateral flow from the LCA was documented to the small PDA and PLV of the RCA. RECOMMENDATIONS: 1. 1. Optimal medical therapy for CAD and maximize the antianginals. 2. Continue with plavix and eliquis. 3. High intensity statin. 4. R radial access care. 5. Follow up with primary electrical systems drafter as outpatient in one week. Wilmar Pelaez, HARLEY, DISC SANDER-, [facility] Cardiology-[address] [address] p [phone] f [phone] [email or web address] documented in this encounter [facility] 01-29-2023 Telephone encounter Note Patient scheduled Danisha 8 :30 am [facility] 01-29-2023 Miscellaneous Notes Patient scheduled Danisha Tu 8 :30 am PC to patient, His Hbg is 10.9, BUN 42, Creatinine 1.88, He is still having SOB and chest pain. He does have angina, that occurs with exertional. He denies any black stools. He looks a bit on the dry side, I will ask him to to hold his aldactone and torsemide tomorrow, and come into the office on Wednesday at 8:30 am. He dose have iron at home and will take it twice a day for now. He is note sure what his HR is ,but it is not fast. Last weight was 292lbs. Labs received,place on desk and gave to MA to enter. PC to patient, still do not have lab results, He feels the same, and is doing ok , if he does not push himself. I will have office call again tomorrow, and page me with the results. Lab order faxed to [facility] [phone]. PC to patient. He is recovering from a hematoma, that required surgical intervention. He was on ATB, but they are now completed. He is back on Apixiban. Although he is retired, he has gone back to work to help them out. He now reports easily fatigued and angina , along with SOB. His weight is 292 lbs, BP 130/60. He has not had a repeat CBC done since his accident. Will start with Stat CBC and BMP at [facility] tomorrow. Will call once results are back. PC to patient. He states he messed up his leg after NALDO appointment here and was on Cephalexin and Bactrim for 10 days. The symptoms started while he was on medication and continue since he's tanya off for about 10 days. He states it started if he would eat and then do something active he would have some chest pain that was relieved by rest. He then tried to not eat prior to activity and still had the slight chest pain. He has not yet taken NTG for this but does take his Imdur in the morning. Will have NALDO review for recommendations Patient has not been feeling quit right lately since he's had to start on strong antibiotics. He is feeling fatigued and light chest discomfort with little exertion. documented in this encounter [facility] 01-29-2023 Telephone encounter Note PC to patient, His Hbg is 10.9, BUN 42, Creatinine 1.88, He is still having SOB and chest pain. He does have angina, that occurs with exertional. He denies any black stools. He looks a bit on the dry side, I will ask him to to hold his aldactone and torsemide tomorrow, and come into the office on Wednesday at 8:30 am. He dose have iron at home and will take it twice a day for now. He is note sure what his HR is ,but it is not fast. Last weight was 292lbs. [facility] 01-29-2023 Telephone encounter Note Labs received,place on desk and gave to MA to enter. [facility] 01-28-2023 Telephone encounter Note PC to patient, still do not have lab results, He feels the same, and is doing ok , if he does not push himself. I will have office call again tomorrow, and page me with the results. [facility] 01-27-2023 Telephone encounter Note ISACC with you 12/24/22 [facility] 01-27-2023 Miscellaneous Notes ISACC with you 12/24/22 documented in this encounter [facility] 01-27-2023 Telephone encounter Note Lab order faxed to [facility] [phone]. [facility] 01-26-2023 Telephone encounter Note PC to patient. He is recovering from a hematoma, that required surgical intervention. He was on ATB, but they are now completed. He is back on Apixiban. Although he is retired, he has gone back to work to help them out. He now reports easily fatigued and angina , along with SOB. His weight is 292 lbs, BP 130/60. He has not had a repeat CBC done since his accident. Will start with Stat CBC and BMP at [facility] tomorrow. Will call once results are back. [facility] 01-26-2023 Telephone encounter Note PC to patient. He states he messed up his leg after NALDO appointment here and was on Cephalexin and Bactrim for 10 days. The symptoms started while he was on medication and continue since he's tanya off for about 10 days. He states it started if he would eat and then do something active he would have some chest pain that was relieved by rest. He then tried to not eat prior to activity and still had the slight chest pain. He has not yet taken NTG for this but does take his Imdur in the morning. Will have NALDO review for recommendations [facility] 01-26-2023 Telephone encounter Note Patient has not been feeling quit right lately since he's had to start on strong antibiotics. He is feeling fatigued and light chest discomfort with little exertion. [facility] 01-05-2023 Telephone encounter Note Thanks for the update, probably best to avoid further complications. [facility] 01-05-2023 Miscellaneous Notes Thanks for the update, probably best to avoid further complications. PC to patient. He went to [facility] Wednesday and was given antibiotics for this. He saw the doctor today and it was decided to make a small incicion to drain it. Patient states numerous blood clots were removed. He did not have stop the Eliquis. Will update provider Patient called stating he had surgery to remove blood clots. He wanted to update Dr. Bui. PC to patient with BMP results, he is feeling good, except he did injured his leg, now has a hematoma, and ATB. BMP stable. Advised to call us if his hematoma does not resolve, we may have to hold his Apixiban a few days. He will follow-up with PCP on Wednesday. documented in this encounter [facility] 01-04-2023 Telephone encounter Note PC to patient. He went to [facility] Wednesday and was given antibiotics for this. He saw the doctor today and it was decided to make a small incicion to drain it. Patient states numerous blood clots were removed. He did not have stop the Eliquis. Will update provider [facility] 01-04-2023 Telephone encounter Note Patient called stating he had surgery to remove blood clots. He wanted to update Dr. Bui. [facility] 01-01-2023 Telephone encounter Note PC to patient with BMP results, he is feeling good, except he did injured his leg, now has a hematoma, and ATB. BMP stable. Advised to call us if his hematoma does not resolve, we may have to hold his Apixiban a few days. He will follow-up with PCP on Wednesday. [facility] 12-08-2022 Note Education provided t o patient on discharge instructions, how to followup, lab work that needs to be completed, and new medications. Medication list reviewed with patient. IV removed from patient. All questions and concerns answered at this time. Patient states he will have a ride around 5pm [facility] 12-08-2022 Note [facility] Progress Note Subjective: 67 y.o. year old male who we are seeing in consultation for ALBINA No chest pain, shortness of breath. No diarrhea or vomiting. ROS negative. All data labs/interval notes and overnight issues are reviewed Objective: Vitals: 12/07/22 2320 12/08/22 0306 12/08/22 0927 12/08/22 1156 BP: (!) 146/61 126/69 (!) 123/45 (!) 104/45 BP Location: Left arm Left arm Right arm Patient Position: Sitting Sitting Sitting Pulse: 73 74 78 64 Resp: Temp: 36.8 ?C (98.2 ?F) 36.3 ?C (97.3 ?F) TempSrc: Temporal Temporal SpO2: 93% 93% 98% 95% Weight: 24HR INTAKE/OUTPUT: Intake/Output Summary (Last 24 hours) at 12/08/2022 1441 Last data filed at 12/08/2022 1155 Gross per 24 hour Intake 810 ml Output 800 ml Net 10 ml Wt Readings from Last 3 Encounters: 12/07/22 (!) 141 kg (310 lb 14.4 oz) 12/03/22 (!) 140 kg (309 lb 9.6 oz) 11/18/22 134 kg (295 lb) Physical Exam: Constitutional: Alert, awake, no apparent distress HEENT: no pallor/cyanosis or icterus Cardiovascular: S1, S2 without m/r/g Respiratory: CTA b/l with equal air entry. Abdomen: +bs, soft, Non tender non distended Ext: LE edema : No CVA tenderness Neurologic Alert and oriented X 3 Psychiatric Calm and cooperative normal modd and affect Neck: supple, no thyroid enlargement, no JVD elevation Skin: warm, moist, no rashes Medications: amiodarone, 200 mg, Oral, Daily apixaban, 5 mg, Oral, BID cholecalciferol, 800 Units, Oral, Daily clopidogrel, 75 mg, Oral, Daily isosorbide mononitrate ER, 60 mg, Oral, Daily metoprolol tartrate, 25 mg, Oral, BID minoxidil, 5 mg, Oral, BID rosuvastatin, 40 mg, Oral, Nightly sodium chloride 0.9%, 5-40 mL, IntraVENous, q12h spironolactone, 25 mg, Oral, BID torsemide, 20 mg, Oral, Daily Continuous Infusions: PRN Meds:PRN medications: acetaminophen OR acetaminophen, benzonatate, ipratropium-albuterol, nitroglycerin, polyethylene glycol (PEG) 3350, sodium chloride, sodium chloride 0.9% Labs: Recent Labs 12/07/22 0018 12/08/22 0128 WBC 9.4 6.9 HGB 11.9* 12.1* HCT 34.9* 36.0* MCV 88.2 89.1 PLT 213 186 Recent Labs 12/07/22 0018 12/08/22 0128 NA 137 134* K 4.8 4.5 CL 106 106 CO2 24 19* GLUCOSE 104* 129* BUN 36* 38* CREATININE 2.12* 1.65* Assessment: ALBINA: The differential includes at this time cardiorenal syndrome versus nonspecific ALBINA secondary to COVID-19 infection, borderline blood pressure 2. HFpEF 3. COVID 19 +ve 4. CKD3b 5. HTN w/ CKD3b 6. Anemia w/ CKD3b Plan: Creatinine improving. Discussed with primary service. Patient likely to get discharged today. Recommend resuming on torsemide 20 mg daily. Patient can take additional dose for weight gain of 2 pounds. ALBINA. To get repeat labs and follow-up in the clinic in 1 week. Please call us with questions. We will follow the patient along. Javier Benton MD [facility] Office: [phone] [facility] 12-08-2022 Nurse Note Education provided to patient on discharge instructions, how to followup, lab work that needs to be completed, and new medications. Medication list reviewed with patient. IV removed from patient. All questions and concerns answered at this time. Patient states he will have a ride around 5pm [facility] 12-08-2022 Nurse Note Education provided to patient on discharge instructions, how to followup, lab work that needs to be completed, and new medications. Medication list reviewed with patient. IV removed from patient. All questions and concerns answered at this time. Patient states he will have a ride around 5pm documented in this encounter [facility] 12-08-2022 History of Present illness Narrative [facility] Progress Note Subjective: 67 y.o. year old male who we are seeing in consultation for ALBINA No chest pain, shortness of breath. No diarrhea or vomiting. ROS negative. All data labs/interval notes and overnight issues are reviewed Objective: Vitals: 12/07/22 2320 12/08/22 0306 12/08/22 0927 12/08/22 1156 BP: (!) 146/61 126/69 (!) 123/45 (!) 104/45 BP Location: Left arm Left arm Right arm Patient Position: Sitting Sitting Sitting Pulse: 73 74 78 64 Resp: 18 15 16 Temp: 36.8 C (98.2 F) 36.3 C (97.3 F) TempSrc: Temporal Temporal SpO2: 93% 93% 98% 95% Weight: 24HR INTAKE/OUTPUT: Intake/Output Summary (Last 24 hours) at 12/08/2022 1441 Last data filed at 12/08/2022 1155 Gross per 24 hour Intake 810 ml Output 800 ml Net 10 ml Wt Readings from Last 3 Encounters: 12/07/22 (!) 141 kg (310 lb 14.4 oz) 12/03/22 (!) 140 kg (309 lb 9.6 oz) 11/18/22 134 kg (295 lb) Physical Exam: Constitutional: Alert, awake, no apparent distress HEENT: no pallor/cyanosis or icterus Cardiovascular: S1, S2 without m/r/g Respiratory: CTA b/l with equal air entry. Abdomen: +bs, soft, Non tender non distended Ext: LE edema : No CVA tenderness Neurologic Alert and oriented X 3 Psychiatric Calm and cooperative normal modd and affect Neck: supple, no thyroid enlargement, no JVD elevation Skin: warm, moist, no rashes Medications: amiodarone, 200 mg, Oral, Daily apixaban, 5 mg, Oral, BID cholecalciferol, 800 Units, Oral, Daily clopidogrel, 75 mg, Oral, Daily isosorbide mononitrate ER, 60 mg, Oral, Daily metoprolol tartrate, 25 mg, Oral, BID minoxidil, 5 mg, Oral, BID rosuvastatin, 40 mg, Oral, Nightly sodium chloride 0.9%, 5-40 mL, IntraVENous, q12h spironolactone, 25 mg, Oral, BID torsemide, 20 mg, Oral, Daily Continuous Infusions: PRN Meds:PRN medications: acetaminophen OR acetaminophen, benzonatate, ipratropium-albuterol, nitroglycerin, polyethylene glycol (PEG) 3350, sodium chloride, sodium chloride 0.9% Labs: Recent Labs 12/07/22 0018 12/08/22 0128 WBC 9.4 6.9 HGB 11.9* 12.1* HCT 34.9* 36.0* MCV 88.2 89.1 PLT 213 186 Recent Labs 12/07/22 0018 12/08/22 0128 NA 137 134* K 4.8 4.5 CL 106 106 CO2 24 19* GLUCOSE 104* 129* BUN 36* 38* CREATININE 2.12* 1.65* Assessment: ALBINA: The differential includes at this time cardiorenal syndrome versus nonspecific ALBINA secondary to COVID-19 infection, borderline blood pressure 2. HFpEF 3. COVID 19 +ve 4. CKD3b 5. HTN w/ CKD3b 6. Anemia w/ CKD3b Plan: Creatinine improving. Discussed with primary service. Patient likely to get discharged today. Recommend resuming on torsemide 20 mg daily. Patient can take additional dose for weight gain of 2 pounds. ALBINA. To get repeat labs and follow-up in the clinic in 1 week. Please call us with questions. We will follow the patient along. Javier Benton MD [facility] Office: [phone] Gonzales, patient advised to weigh himself and call us with weight gain of 3-5 lbs in 3-5 days. He will likely need higher dose of diuretics, once recovered from COVID. F/U appt arranged. Images from the original note were not included. Hospitalist Progress Note 12/08/2022 9:09 AM [phone]: Please page me for patient care issues. [phone]: Please page [facility] night Hospitalist for any issues. Subjective: Admit Date: 12/06/2022 PCP: Elizabeth Logan MD Room#: 1C-131/1C-131 A Interval History: Patient seen and examined 67-year-old male past medical history of obesity, obstructive sleep apnea-due to get new BiPAP machine, CAD with multiple stent, atrial fibrillation anticoagulation, CVA, COPD not on home oxygen, history of heart failure with preserved ejection fraction, echo from September 2022 reviewed showed EF of 55%, no valve disease, depression, GERD, hypertension, hyperlipidemia, chronic kidney disease stage III with baseline creatinine of 1.5 Patient was sitting up in chair comfortably Denies any chest pain, shortness of breath Complain of dry cough No nausea, vomiting, abdominal pain, diarrhea No fever spike noted Saturation was 93 to 96% on room air Sodium 134, potassium 4.5, CO2 of 19, creatinine today improved to 1.65 Troponin x2 negative COVID test positive Chest x-ray negative for infiltrate. Prominence of interstitium and central pulmonary vascular congestion consistent with mild CHF. Renal ultrasonogram ---showed no evidence of hydronephrosis. Nonspecific mild bilateral perinephric edema noted. Benign-appearing bilateral renal cortical cysts noted. Past medical history : Past Medical History: Diagnosis Date Angina pectoris ([facility]) Anxiety Arrhythmia A-fib Asthma CAD (coronary artery disease) Cerebral artery occlusion with cerebral infarction ([facility]) COPD (chronic obstructive pulmonary disease) ([facility]) Depression WATTS (dyspnea on exertion) Fatigue GERD (gastroesophageal reflux disease) History of cardioversion 05/07/2016 Successful conversion of a-fib to SR History of left heart catheterization 05/07/2016 60% stenosis right posterior descending, patent stents in prox, mid & distal RCA, patent stents in med LCx. Findings unchanged from previous study. 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 correction current use of anticoagulant NSTEMI (non-ST elevated myocardial infarction) ([facility]) ([facility]) 12/2012 NSTEMI (non-ST elevated myocardial infarction) ([facility]) ([facility]) 05/2014 Obesity Old IL (myocardial infarction) HIPOLITO (obstructive sleep apnea) HIPOLITO on CPAP PAF (paroxysmal atrial fibrillation) ([facility]) ([facility]) Rheumatoid arthritis(714.0) ([facility]) ST segment elevation myocardial infarction (STEMI) of anterolateral wall, subsequent episode of care ([facility]) (HCC) TIA (transient ischemic attack) Adult diet Regular; No Added Salt (3-4 gm) @[id number]@ Medications: amiodarone, 200 mg, Oral, Daily apixaban, 5 mg, Oral, BID cholecalciferol, 800 Units, Oral, Daily clopidogrel, 75 mg, Oral, Daily isosorbide mononitrate ER, 60 mg, Oral, Daily metoprolol tartrate, 25 mg, Oral, BID minoxidil, 5 mg, Oral, BID rosuvastatin, 40 mg, Oral, Nightly sodium chloride 0.9%, 5-40 mL, IntraVENous, q12h spironolactone, 25 mg, Oral, BID torsemide, 20 mg, Oral, Daily LABS: CBC: Recent Labs 12/07/22 0018 12/08/22 0128 WBC 9.4 6.9 RBC 3.95* 4.04* HGB 11.9* 12.1* HCT 34.9* 36.0* MCV 88.2 89.1 RDW 15.1* 15.0* PLT 213 186 BMP: Recent Labs 12/07/22 0018 12/08/22 0128 NA 137 134* K 4.8 4.5 CL 106 106 CO2 24 19* BUN 36* 38* CREATININE 2.12* 1.65* GLUCOSE 104* 129* CALCIUM 8.6 8.5 ANIONGAP 7 8 LIVER PROFILE: Recent Labs 12/07/22 0018 AST 30 ALT 39 BILITOT 1.2 ALKPHOS 76 PROT 7.2 PT/INR: No results for input(s): PROTIME, INR in the last 72 hours. CARDIAC ENZYMES: Recent Labs 12/06/22 1057 12/07/22 0018 TROPONINI <0.012 0.013 Procalcitonin: No results found for: PROCAL ECG 12 lead Result Date: 12/06/2022 Impression: Sinus rhythm 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, old I reviewed: [x] laboratory results [x] radiographic results At the time of today's encounter. Pt was informed about the results. Objective: Vitals: BP 126/69 (BP Location: Left arm, Patient Position: Sitting) Pulse 74 Temp 36.3 C (97.3 F) (Temporal) Resp 18 Wt (!) 310 lb 14.4 oz (141 kg) SpO2 93% BMI 39.92 kg/m Pulse Ox: SpO2 Av.7 % Min: 82 % Max: 100 % Supplemental O2: General appearance: No apparent distress, HEENT: Eyes: No scleral icterus No pallor Obese male Oral: Tongue is semi-moist Cardiovascular: S1S2 heard, no gallop Respiratory: Clear to auscultation bilaterally anteriorly Decrease breath sound both bases posteriorly Abdomen: Soft, non-tender, non-distended with normal bowel sounds, limited exam since patient sitting up in chair Musculoskeletal: No obvious deformities seen Neurology- no focal neurology,Awake alert Extremity- mild peripheral edema both lower extremities Assessment Acute problems-- Chest pain, history of CAD with multiple stent for further evaluation COVID-19 positive Acute kidney injury improving on chronic kidney disease, baseline stage III NAGMA Hyperlipidemia Anemia, chronic Chronic issue-- Obesity CAD with multiple stenting History of atrial fibrillation anticoagulation CVA COPD clinically stable Heart failure with preserved ejection fraction, clinically stable History of HIPOLITO GERD Hypertension Hyperlipidemia Depression History of TIA Plan Continue respiratory isolation Continue as needed Tessalon 100 mg every 8 hours as needed for cough Lisinopril was discontinued yesterday due to acute kidney injury Discussed with nephrology team today, recommended torsemide 20 mg p.o. daily at the time of discharge. If patient gains 2 pounds weight in the day, patient was instructed to take additional dose of torsemide. BMP panel to be rechecked on Wednesday and Wednesday. Follow-up with nephrology team in 1 week time. Seen by pulmonary team by televisit, started on BiPAP for HIPOLITO Continue as needed nebulizer treatment for COPD Continue rest of medication as ordered On anticoagulation for history of atrial fibrillation On DVT prophylaxis Patient was informed about all work up and treatment plan Discussed with nursing staff and nephrology team DC home today. Patients family- Reynold [phone]- was informed about all work up and treatment plan Toxic drug monitoring/narrow therapeutic index drug monitoring : # Drug name : none # Route administered : # Method of monitoring : Extended Emergency Contact Information Primary Emergency Contact: Harvinder Dickerson Relation: Relative Secondary Emergency Contact: Reynold Dickerson Mobile Relation: Brother Advance Directive: Full Code Discharge planning: DC home today NOTE: This report was transcribed using voice recognition software. Every effort was made to ensure accuracy; however, inadvertent computerized subsurface augmentee elint operator errors may be present. Ashley Edgar MD Division of Hospitalist Medicine Acute [facility] PAGER: Epic chat .Nutrition rescreen completed. Chart reviewed. 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 TAZ Murguia [facility] Cardiology /Electrophysiology Progress Note Reason for consult: Chest pain HPI / Interval History: Shannon Dicekrson is a 67 y.o[address] known to Dr. Campbell Gonzales with hx of complex CAD and prior stenting of the LAD, Lcx, and RCA. His last LHC was 12/01/21 and at that time was noted to have midRCA instent restenosis with 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 and L->R collaterals and had unsuccessful attempt at PCI and medical Rx recommended. At that time, he had patent stents to the proxLAD and pro-mid Lcx. Other hx includes paroxsymal atrial fibrillation, CVA, COPD, HTN, HLD, obesity, and HIPOLITO. His last TTE was 11/18/22 revealing normal LVEF 55% with unchanged WMA within the basal inferolateral and basal inferior paredes. When he last saw Dr. Gonzales in office 12/03/22 he reported intermittent chest pain after eating and following activity. At that time, his edema was improved. BMP was ordered revealing stable and improved renal insuffiency (creatinine 1.39, down from 1.53). He was transferred from [facility] here 12/06/22 for chest pain. There, his Hs troponin was 174 and then 175 (upper limit of normal 80). He has been having chest pain resolved with rest. Sx did not improve with NTG. He is in the process of getting his HIPOLITO treated. Pt is seated in the chair. He reports feeling fatigued and having generalized weakness. He has a non-productive cough. He has not had any nausea or vomiting. Appetite has been poor. He reports hx of chronic, intermittent diarrhea but that is unchanged. He had a dry BM yesterday. He states that when he initially presented to [facility] that he had intense chest tightness rated 8/10 while standing in his kitchen. It did not radiate. He felt SOB with it. No diaphoresis, nausea, or numbness/tingling. He took SL NTG with relief. He has chronic, unchanged WATTS and exertional mid sternal chest tightness with stair climbing and some of his ADLS but this is unchanged. He denies taking any extra diuretics recently with recent ALBINA. He actually has been drinking several glasses of water per day. He has had chronic, stable trace BLLE edema. No PND, orthopnea, palpitations, or syncope. Currently, he denies any SOB or chest pain. Assessment/Plan Chest pain in the setting of known complex CAD with RCA 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 and multiple prior PCI: Stable, no angina now. EKG reviewed from today and unchanged from previous. No ischemic changes. Troponin I here negative x2. However, Hs Troponins at [place] were elevated but insignificant (reviewed with Dr. Gonzales). It is possible that his symptoms and mild rise in troponin at outside facility secondary to COVID-19 infection. Stop ASA as he is already on eliquis for afib. Continue plavix. Do not recommend triple therapy. Reports compliance with his lipitor despite uncontrolled HLD, see #3. Continue imdur 60 mg daily and lopressor 50 mg BID. BP soft earlier this AM limiting optimizing his BB or imdur dosages. Once recovered from acute illness, would reassess angina as OP to determine if we need to increase imdur or add ranexa. No ischemic work-up at this time. HTN: Initially uncontrolled but now improved with an isolated episode of hypotension earlier today. BP now 115/56. Would continue to monitor. Goal <130/80. HLD: Lipids 1 year ago were well controlled. Now, labs per today reveal significantly uncontrolled levels. Compliant with lipitor 80 mg daily, will change to crestor 40 mg daily for tighter control. Recommend checking fasting lipids and hepatic fxn in 3 months time. ALBINA on CKD: Creatinine worse today, 2.12. Baseline has been 1.2-1.4 by recent labs. Nephrology consulted. Avoid nephrotoxins. He is euvolemic on exam.Torsemide and aldactone both held until renal fxn back at baseline and ok to resume per nephrology. COVID-19 infection: Mgt per primary. Paroxysmal atrial fib:Maintains SR. On eliquis for stroke prevention. Continue amio and metoprolol. HIPOLITO: Working on getting this treated with BiPAP as OP. Will discuss with Dr. Gonzales. He will come to see the patient. Further recommendations to follow. Clarified, pt has been taking torsemide 20 mg BID at home. He has been taking aldactone 25 mg BID. Recommend resuming both agents to prevent volume overload. When he was seen in office about 1 month ago he was fluid overloaded and responded well to torsemide and aldactone. At follow-up visit 12/03 he was doing well and euvolemic. I have messaged nephrology and primary service about resuming his diuretics. From cardiac standpoint, ok for discharge. Will coordinate a BMP to be done in about 1 week to follow his renal fxn and electrolytes. May need to accept a rise in renal fxn to maintain euvolemia. His renal fxn may improve. Addendum: D/w nephrology who recommends resuming torsemide 20 mg daily starting tomorrow, please hold in AM if renal fxn worse. The aldactone was already resumed. Will sign off. Please call with questions/concerns. Medications: amiodarone, 200 mg, Oral, Daily amLODIPine, 10 mg, Oral, Daily apixaban, 5 mg, Oral, BID aspirin, 81 mg, Oral, Daily atorvastatin, 80 mg, Oral, Daily cholecalciferol, 800 Units, Oral, Daily clopidogrel, 75 mg, Oral, Daily isosorbide mononitrate ER, 60 mg, Oral, Daily metoprolol tartrate, 50 mg, Oral, BID minoxidil, 5 mg, Oral, BID sodium chloride 0.9%, 5-40 mL, IntraVENous, q12h [Held by provider] spironolactone, 25 mg, Oral, BID [Held by provider] torsemide, 10 mg, Oral, Daily Infusion Medications: Physical Examination: Vitals: 12/06/22 1917 12/06/22 2207 12/07/22 0323 12/07/22 0741 BP: 106/66 101/52 99/54 115/56 BP Location: Left arm Right arm Patient Position: Sitting Sitting Pulse: 88 70 92 86 Resp: 24 22 20 19 Temp: 37.6 C (99.6 F) 36.6 C (97.8 F) 36.9 C (98.5 F) 36.4 C (97.5 F) TempSrc: Temporal Temporal Temporal Temporal SpO2: 96% 96% 94% 98% Weight: (!) 310 lb 14.4 oz (141 kg) Intake/Output Summary (Last 24 hours) at 12/07/2022 1012 Last data filed at 12/06/20221999 Gross per 24 hour Intake 200 ml Output -- Net 200 ml Wt Readings from Last 3 Encounters: 12/07/22 (!) 310 lb 14.4 oz (141 kg) 12/03/22 (!) 309 lb 9.6 oz (140 kg) 11/18/22 295 lb (134 kg) Physical Exam Constitutional: General: He is not in acute distress. Appearance: He is obese. He is not ill-appearing, toxic-appearing or diaphoretic. HENT: Head: Normocephalic and atraumatic. Neck: Vascular: No JVD. Cardiovascular: Rate and Rhythm: Normal rate and regular rhythm. Pulses: Normal pulses. Heart sounds: Normal heart sounds. No murmur heard. No friction rub. No gallop. Pulmonary: Effort: Pulmonary effort is normal. No respiratory distress. Breath sounds: Normal breath sounds. No stridor. No wheezing, rhonchi or rales. Abdominal: General: Bowel sounds are normal. Palpations: Abdomen is soft. Comments: Abdomen is rounded and obese Musculoskeletal: Cervical back: Normal range of motion and neck supple. Right lower leg: Edema present. Left lower leg: Edema present. Comments: Trace BLLE edema Skin: General: Skin is warm and dry. Capillary Refill: Capillary refill takes less than 2 seconds. Neurological: Mental Status: He is oriented to person, place, and time. Psychiatric: Mood and Affect: Mood normal. Behavior: Behavior normal. Thought Content: Thought content normal. Judgment: Judgment normal. Laboratory Tests: Recent Labs 12/07/22 0018 NA 137 K 4.8 CL 106 CO2 24 BUN 36* CREATININE 2.12* Recent Labs 12/07/22 0018 WBC 9.4 HGB 11.9* HCT 34.9* MCV 88.2 PLT 213 Recent Labs 12/06/22 1057 12/07/22 0018 TROPONINI <0.012 0.013 No results for input(s): BNP in the last 72 hours. Recent Labs 12/07/22 0018 TRIG 227* HDL 37* LDLCALC 169* CHOL 251* No results found for: LDLCHOLESTER Lab Results Component Value Date TSH 1.571 10/29/2022 No results found for: EFBP, PLVEF, LVEFPHYS, LVEF2D, EF 11/18/22 TRANSTHORACIC ECHOCARDIOGRAM (TTE) COMPLETE (CONTRAST/BUBBLE/3D PRN) 11/18/2022 2:15 PM (Final) Interpretation Summary Left Ventricle: Left ventricle size is normal. Moderately increased wall thickness. Normal left ventricular systolic function. The EF by visual approximation is 55%. Moderate hypokinesis of the following segments: basal inferolateral. Akinesis of the following segments: basal inferior. Right Ventricle: Right ventricle size is normal. Normal systolic function. Left Atrium: Left atrium is mildly dilated. Aorta: Normal sized sinuses of Valsalva. Moderately dilated ascending aorta. Ao ascending diameter is 4.5 cm. No significant valvular abnormalities. Signed by: Stephan Crawley MD on 11/18/2022 2:15 PM Other reports reviewed: Cardiac Tests: Last EC12/07/22-NSR, prior inferior infarct, unchanged from 09/28/22 Last Echo 11/18/22 Left Ventricle: Left ventricle size is normal. Moderately increased wall thickness. Normal left ventricular systolic function. The EF by visual approximation is 55%. Moderate hypokinesis of the following segments: basal inferolateral. Akinesis of the following segments: basal inferior. Right Ventricle: Right ventricle size is normal. Normal systolic function. Left Atrium: Left atrium is mildly dilated. Aorta: Normal sized sinuses of Valsalva. Moderately dilated ascending aorta. Ao ascending diameter is 4.5 cm. No significant valvular abnormalities. Last Cardiac catheterization 12/01/21 Procedures performed: # Right coronary angiography. # Left coronary angiography. # Left heart catheterization with left ventriculography. # Percutaneous intervention on the 100% in-stent recurrent chronic total occlusion in the proximal right coronary. Balloon angioplasty. ----- SUMMARY: 1. 66 M with prior PCI and stenting to LAD, LCx and RCA came in with angina. 2. Left ventricle: Systolic function is normal. The estimated ejection fraction is 55-60%. Dyskinesis of the basal inferior myocardium. 3. Left circumflex: Prior intervention: stent, in the proximal left circumflex. The intervened segment is patent. 4. Right coronary: Prior intervention #1: stent, in the proximal RCA. The intervened segment is patent. Prior intervention #2: stent, in the mid RCA. Proximal vessel lesion: The diagnostic study demonstrated a 100%in-stent recurrent chronic total occlusion, at the site of prior intervention #2. The lesion is a likely culprit for the patient's anginal symptoms. The lesion presents an ACC/AHA type A/B low/moderate risk lesion for intervention. Angioplasty was performed, resulting in no improvement in angiographic appearance (see 1st lesion). Following intervention, there is a residual 100% stenosis with JORDAN grade 0 flow (no flow). Mid-vessel lesion: Angioplasty was performed. 5. Elevated left heart filling pressure. 6. Unsuccessful attempt to revascularise the mid RCA instent restenosis 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. IMPRESSIONS: 1. Patent stent in proximal LAD. 2. Patent stent in proximal-mid LCx. 3. Mid RCA instent restenosis with 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 and left to right collaterals. 4. Unsuccessful attempt to revascularize mid RCA instent restenosis 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. Guidewire was passed across the occlusion and multiple balloon inflations with 2.0 mm and 3.0 mm without flow into the distal vessels ( review of the last cath shows very poor vessels distal to the stents) 5. Collateral flow from the LCA was documented to the small PDA and PLV of the RCA. RECOMMENDATIONS: 1. 1. Optimal medical therapy for CAD and maximize the antianginals. 2. Continue with plavix and eliquis. 3. High intensity statin. 4. R radial access care. 5. Follow up with primary electrical systems drafter as outpatient in one week. Telemetry findings reviewed: NSR with occasional PVCs DANIELLE Quinn CNP Date Of Service 12/07/2022 Images from the original note were not included. Hospitalist Progress Note 12/07/2022 8:21 AM [id number]: Please page me for patient care issues. [phone]: Please page [facility] night Hospitalist for any issues. Subjective: Admit Date: 12/06/2022 PCP: Elizabeth Logan MD Room#: 1C-131/1C-131 A Interval History: Patient seen and examined 67-year-old male past medical history of obesity, obstructive sleep apnea-due to get new BiPAP machine, CAD with multiple stent, atrial fibrillation anticoagulation, CVA, COPD not on home oxygen, history of heart failure with preserved ejection fraction, echo from September 2022 reviewed showed EF of 55%, no valve disease, depression, GERD, hypertension, hyperlipidemia, chronic kidney disease stage III with baseline creatinine of 1.5 Presented to [facility] following chest pain. Patient was complaining of dry cough for last 3 days Denies any sputum, nausea, vomiting He is usually short of breath on exertion due to underlying history of COPD Fever spike of 101.3 noted yesterday No fever today Patient sitting up in chair comfortably, denies any chest pain today Potassium 4.8, creatinine 2.1, LFT panel normal Cholesterol 251, LDL 169, triglyceride 227, hemoglobin 11.9 High sensitive troponin done at [facility] was 175 Past medical history : Past Medical History: Diagnosis Date Angina pectoris ([facility]) Anxiety Arrhythmia A-fib Asthma CAD (coronary artery disease) Cerebral artery occlusion with cerebral infarction ([facility]) COPD (chronic obstructive pulmonary disease) ([facility]) Depression WATTS (dyspnea on exertion) Fatigue GERD (gastroesophageal reflux disease) History of cardioversion 05/07/2016 Successful conversion of a-fib to SR History of left heart catheterization 05/07/2016 60% stenosis right posterior descending, patent stents in prox, mid & distal RCA, patent stents in med LCx. Findings unchanged from previous study. 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 NSTEMI (non-ST elevated myocardial infarction) ([facility]) ([facility]) 12/2012 NSTEMI (non-ST elevated myocardial infarction) ([facility]) ([facility]) 05/2014 Obesity Old IL (myocardial infarction) HIPOLITO (obstructive sleep apnea) HIPOLITO on CPAP PAF (paroxysmal atrial fibrillation) ([facility]) ([facility]) Rheumatoid arthritis(714.0) ([facility]) ST segment elevation myocardial infarction (STEMI) of anterolateral wall, subsequent episode of care ([facility]) ([facility]) TIA (transient ischemic attack) Adult diet Regular; No Added Salt (3-4 gm) @[id number]@ Medications: amiodarone, 200 mg, Oral, Daily amLODIPine, 10 mg, Oral, Daily apixaban, 5 mg, Oral, BID aspirin, 81 mg, Oral, Daily atorvastatin, 80 mg, Oral, Daily cholecalciferol, 800 Units, Oral, Daily clopidogrel, 75 mg, Oral, Daily isosorbide mononitrate ER, 60 mg, Oral, Daily metoprolol tartrate, 50 mg, Oral, BID minoxidil, 5 mg, Oral, BID sodium chloride 0.9%, 5-40 mL, IntraVENous, q12h [Held by provider] spironolactone, 25 mg, Oral, BID [Held by provider] torsemide, 10 mg, Oral, Daily LABS: CBC: Recent Labs 12/07/22 0018 WBC 9.4 RBC 3.95* HGB 11.9* HCT 34.9* MCV 88.2 RDW 15.1* PLT 213 BMP: Recent Labs 12/07/22 0018 NA 137 K 4.8 CL 106 CO2 24 BUN 36* CREATININE 2.12* GLUCOSE 104* CALCIUM 8.6 ANIONGAP 7 LIVER PROFILE: Recent Labs 12/07/22 0018 AST 30 ALT 39 BILITOT 1.2 ALKPHOS 76 PROT 7.2 PT/INR: No results for input(s): PROTIME, INR in the last 72 hours. CARDIAC ENZYMES: Recent Labs 12/06/22 1057 TROPONINI <0.012 Procalcitonin: No results found for: PROCAL ECG 12 lead Result Date: 12/06/2022 Impression: Sinus rhythm 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, old I reviewed: [x] laboratory results [x] radiographic results At the time of today's encounter. Pt was informed about the results. Objective: Vitals: BP 115/56 Pulse 86 Temp 36.4 C (97.5 F) (Temporal) Resp 19 Wt (!) 310 lb 14.4 oz (141 kg) SpO2 98% BMI 39.92 kg/m Pulse Ox: SpO2 Av % Min: 94 % Max: 98 % Supplemental O2: General appearance: No apparent distress, HEENT: Eyes: No scleral icterus No pallor Obese male Oral: Tongue is semi-moist Cardiovascular: S1S2 heard, no gallop Respiratory: Clear to auscultation bilaterally anteriorly Decrease breath sound both bases posteriorly Abdomen: Soft, non-tender, non-distended with normal bowel sounds, limited exam since patient sitting up in chair Musculoskeletal: No obvious deformities seen Neurology- no focal neurology,Awake alert Extremity- mild peripheral edema both lower extremities Assessment Acute problems-- Chest pain, elevated troponin, history of CAD with multiple stent for further evaluation Cough, fever rule out pneumonia, rule out COVID Acute kidney injury on chronic kidney disease, baseline stage III Hyperlipidemia Anemia, chronic Chronic issue-- Obesity CAD with multiple stenting History of atrial fibrillation anticoagulation CVA COPD clinically stable Heart failure with preserved ejection fraction, clinically stable History of HIPOLITO GERD Hypertension Hyperlipidemia Depression History of TIA Plan Continue current treatment as ordered Cardiology team following Check respiratory PCR/COVID test Chest x-ray today Discontinue lisinopril Hold diuretics due to acute kidney injury Urine analysis Renal ultrasonogram ordered Nephrology team consulted Continue as needed nebulizer treatment for COPD Nocturnal CPAP for HIPOLITO Continue rest of medication as ordered On anticoagulation for history of atrial fibrillation On DVT prophylaxis Patient was informed about all work up and treatment plan Toxic drug monitoring/narrow therapeutic index drug monitoring : # Drug name : none # Route administered : # Method of monitoring : Extended Emergency Contact Information Primary Emergency Contact: Harvinder Dickerson Relation: Relative Secondary Emergency Contact: Reynold Dickerson Mobile Relation: Brother Advance Directive: Full Code Discharge planning: NOTE: This report was transcribed using voice recognition software. Every effort was made to ensure accuracy; however, inadvertent computerized subsurface augmentee elint operator errors may be present. Ashley Edgar MD Division of Hospitalist Medicine [employer] [facility] Emergency Department [employer] PAGER: Epic chat Addendum Message from cardiology nurse practitioner-Dr. Gonzales wanted to continue patient on Aldactone/torsemide Plan Nephrology team following BMP panel in a.m. documented in this encounter [facility] 12-08-2022 Note Discharge Summary Shannon Dickerson : 1955 ADMIT DATE: 12/06/2022 DISCHARGE DATE: 12/08/2022 PRIMARY CARE PHYSICIAN: Elizabeth Logan VISIT STATUS: Admission CODE STATUS: Full Code DISCHARGE DIAGNOSES: Acute problems-- Chest pain, history of CAD with multiple stent for further evaluation COVID-19 positive Acute kidney injury improving on chronic kidney disease, baseline stage III NAGMA Hyperlipidemia Anemia, chronic Benign bilateral renal cortical cyst Chronic issue-- Obesity CAD with multiple stenting History of atrial fibrillation anticoagulation CVA COPD clinically stable Heart failure with preserved ejection fraction, clinically stable History of HIPOLITO GERD Hypertension Hyperlipidemia Depression History of TIA HOSPITAL COURSE: 67-year-old male past medical history of obesity, obstructive sleep apnea-due to get new BiPAP machine, CAD with multiple stent, atrial fibrillation anticoagulation, CVA, COPD not on home oxygen, history of heart failure with preserved ejection fraction, echo from September 2022 reviewed showed EF of 55%, no valve disease, depression, GERD, hypertension, hyperlipidemia, chronic kidney disease stage III with baseline creatinine of 1.5 Presented to [facility] following chest pain.Patient was complaining of dry cough for last 3 days, and 1 episode of fever spike during hospitalization stay. Work-up during this admission showed potassium of 4.8, LFT panel normal, creatinine of 2.1, hemoglobin of 11.9, high sensitive troponin done at [facility] was 175, patient was transferred to [facility] for further evaluation. Repeat EKG showed sinus rhythm, no acute changes. Repeat troponin x2 was negative. Seen by cardiology team, recommended medical treatment. His lipid panel was elevated with total cholesterol of 251, LDL of 169, Lipitor was discontinued and patient was started on Crestor 40 mg daily by cardiology team. Patient also had acute kidney injury on chronic kidney disease, baseline stage III, creatinine during this admission was 2.1, diuretics was on hold following which creatinine improved to 1.6 at the time of discharge. Nephrology team recommended to decrease dose of torsemide to 20 mg p.o. daily at the time of discharge, repeat BMP panel to be rechecked in 3 days with PCP. He also had fever spike, chest x-ray negative for infiltrate. COVID test was positive. He did not have further fever spike, oxygenation was stable ranging between 93-96%. He was also seen by pulmonary team, in regards to recent sleep study, started on BiPAP therapy for HIPOLITO. On the day of discharge he denies new symptom, afebrile Saturation was ranging between 93 to 96% on room air On examination- Obese male Oral: Tongue is semi-moist Cardiovascular: S1S2 heard, no gallop Respiratory: Clear to auscultation bilaterally anteriorly Decrease breath sound both bases posteriorly Abdomen: Soft, non-tender, non-distended with normal bowel sounds Neurology- no focal neurology,Awake alert Extremity- mild peripheral edema both lower extremities CONSULTANTS: Cardiology, nephrology RECOMMENDED NEXT STEPS: BMP panel to be rechecked on 12/11/2022 on 12/14/2022 Follow-up with nephrology team in 1 week time and cardiology in 2 weeks time. DISCHARGE MEDICATIONS: Medication List START taking these medications benzonatate 100 MG capsule Commonly known as: Tessalon Take 1 capsule (100 mg) by mouth 3 times daily as needed for cough for up to 7 days. Do not crush or chew. rosuvastatin 40 MG tablet Commonly known as: Crestor Take 1 tablet (40 mg) by mouth Nightly. CHANGE how you take these medications metoprolol tartrate 25 MG tablet Commonly known as: Lopressor Take 1 tablet (25 mg) by mouth 2 times daily. What changed: medication strength how much to take nitroglycerin 0.4 MG SL tablet Commonly known as: Nitrostat Place 1 tablet under the tongue every 5 minutes as needed for Chest pain. If no relief after 3 tablets, call 9-1-1 immediately. What changed: Another medication with the same name was removed. Continue taking this medication, and follow the directions you see here. torsemide 20 MG tablet Commonly known as: Demadex Take 1 tablet (20 mg) by mouth daily. Patient was also instructed to take additional 20 mg torsemide, if weight gain of more than 2 pounds in 1 day. What changed: how much to take additional instructions CONTINUE taking these medications amiodarone 200 MG tablet Commonly known as: Pacerone apixaban 5 MG tablet Commonly known as: Eliquis cholecalciferol 20 MCG (800 UNIT) tablet Commonly known as: Vitamin D-3 clopidogrel 75 MG tablet Commonly known as: Plavix isosorbide mononitrate ER 60 MG 24 hr tablet Commonly known as: Imdur Take 1 tablet (60 mg) by mouth daily. Do not crush or chew. minoxidil 10 MG tablet Commonly known as: Loniten spironolactone 25 MG tablet Commonly known as: Cherri (more content not included)... [facility] 12-08-2022 Note Hospitalist Progress Note 12/08/2022 9:09 AM [phone]: Please page me for patient care issues. [phone]: Please page [facility] night Hospitalist for any issues. Subjective: Admit Date: 12/06/2022 PCP: Elizabeth Logan MD Room#: 1C-131/1C131 A Interval History: Patient seen and examined 67-year-old male past medical history of obesity, obstructive sleep apnea-due to get new BiPAP machine, CAD with multiple stent, atrial fibrillation anticoagulation, CVA, COPD not on home oxygen, history of heart failure with preserved ejection fraction, echo from September 2022 reviewed showed EF of 55%, no valve disease, depression, GERD, hypertension, hyperlipidemia, chronic kidney disease stage III with baseline creatinine of 1.5 Patient was sitting up in chair comfortably Denies any chest pain, shortness of breath Complain of dry cough No nausea, vomiting, abdominal pain, diarrhea No fever spike noted Saturation was 93 to 96% on room air Sodium 134, potassium 4.5, CO2 of 19, creatinine today improved to 1.65 Troponin x2 negative COVID test positive Chest x-ray negative for infiltrate. Prominence of interstitium and central pulmonary vascular congestion consistent with mild CHF. Renal ultrasonogram ---showed no evidence of hydronephrosis. Nonspecific mild bilateral perinephric edema noted. Benign-appearing bilateral renal cortical cysts noted. Past medical history : Past Medical History: Diagnosis Date Angina pectoris ([facility]) Anxiety Arrhythmia A-fib Asthma CAD (coronary artery disease) Cerebral artery occlusion with cerebral infarction ([facility]) COPD (chronic obstructive pulmonary disease) ([facility]) Depression WATTS (dyspnea on exertion) Fatigue GERD (gastroesophageal reflux disease) History of cardioversion 05/07/2016 Successful conversion of a-fib to SR History of left heart catheterization 05/07/2016 60% stenosis right posterior descending, patent stents in prox, mid & distal RCA, patent stents in med LCx. Findings unchanged from previous study. 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 correction current use of anticoagulant NSTEMI (non-ST elevated myocardial infarction) ([facility]) ([facility]) 12/2012 NSTEMI (non-ST elevated myocardial infarction) ([facility]) ([facility]) 05/2014 Obesity Old [place] (myocardial infarction) HIPOLITO (obstructive sleep apnea) HIPOLITO on CPAP PAF (paroxysmal atrial fibrillation) ([facility]) ([facility]) Rheumatoid arthritis(714.0) ([facility]) ST segment elevation myocardial infarction (STEMI) of anterolateral wall, subsequent episode of care ([facility]) ([facility]) TIA (transient ischemic attack) Adult diet Regular; No Added Salt (3-4 gm) @[id number]@ Medications: amiodarone, 200 mg, Oral, Daily apixaban, 5 mg, Oral, BID cholecalciferol, 800 Units, Oral, Daily clopidogrel, 75 mg, Oral, Daily isosorbide mononitrate ER, 60 mg, Oral, Daily metoprolol tartrate, 25 mg, Oral, BID minoxidil, 5 mg, Oral, BID rosuvastatin, 40 mg, Oral, Nightly sodium chloride 0.9%, 5-40 mL, IntraVENous, q12h spironolactone, 25 mg, Oral, BID torsemide, 20 mg, Oral, Daily LABS: CBC: Recent Labs 12/07/22 0018 12/08/22 0128 WBC 9.4 6.9 RBC 3.95* 4.04* HGB 11.9* 12.1* HCT 34.9* 36.0* MCV 88.2 89.1 RDW 15.1* 15.0* PLT 213 186 BMP: Recent Labs 12/07/22 0018 12/08/22 0128 NA 137 134* K 4.8 4.5 CL 106 106 CO2 24 19* BUN 36* 38* CREATININE 2.12* 1.65* GLUCOSE 104* 129* CALCIUM 8.6 8.5 ANIONGAP 7 8 LIVER PROFILE: Recent Labs 12/07/22 0018 AST 30 ALT 39 BILITOT 1.2 ALKPHOS 76 PROT 7.2 PT/INR: No results for input(s): PROTIME, INR in the last 72 hours. CARDIAC ENZYMES: Recent Labs 12/06/22 1057 12/07/22 0018 TROPONINI <0.012 0.013 Procalcitonin: No results found for: PROCAL ECG 12 lead Result Date: 12/06/2022 Impression: Sinus rhythm 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, old I reviewed: [x] laboratory results [x] radiographic results At the time of today's encounter. Pt was informed about the results. Objective: Vitals: BP 126/69 (BP Location: Left arm, Patient Position: Sitting) Pulse 74 Temp 36.3 ?C (97.3 ?F) (Temporal) Resp 18 Wt (!) 310 lb 14.4 oz (141 kg) SpO2 93% BMI 39.92 kg/m? Pulse Ox: SpO2 Av.7 % Min: 82 % Max: 100 % Supplemental O2: General appearance: No apparent distress, HEENT: Eyes: No scleral icterus No pallor Obese male Oral: Tongue is semi-moist Cardiovascular: S1S2 heard, no gallop Respiratory: Clear to auscultation bilaterally anteriorly Decrease breath sound both bases posteriorly Abdomen: Soft, non-tender, non-distended with normal bowel sounds, limited exam since patient sitting up in chair Musculoskeletal: No obvious deformities seen Neurology- no focal neurology,Awake alert Extremity- mild peripheral edema both lower extremities Assessment Acute problems- (more content not included)... [facility] 12-08-2022 Hospital course Narrative Discharge Summary Shannon Dickerson : 1955 ADMIT DATE: 12/06/2022 DISCHARGE DATE: 12/08/2022 PRIMARY CARE PHYSICIAN: Elizabeth Logan VISIT STATUS: Admission CODE STATUS: Full Code DISCHARGE DIAGNOSES: Acute problems-- Chest pain, history of CAD with multiple stent for further evaluation COVID-19 positive Acute kidney injury improving on chronic kidney disease, baseline stage III NAGMA Hyperlipidemia Anemia, chronic Benign bilateral renal cortical cyst Chronic issue-- Obesity CAD with multiple stenting History of atrial fibrillation anticoagulation CVA COPD clinically stable Heart failure with preserved ejection fraction, clinically stable History of HIPOLITO GERD Hypertension Hyperlipidemia Depression History of TIA HOSPITAL COURSE: 67-year-old male past medical history of obesity, obstructive sleep apnea-due to get new BiPAP machine, CAD with multiple stent, atrial fibrillation anticoagulation, CVA, COPD not on home oxygen, history of heart failure with preserved ejection fraction, echo from September 2022 reviewed showed EF of 55%, no valve disease, depression, GERD, hypertension, hyperlipidemia, chronic kidney disease stage III with baseline creatinine of 1.5 Presented to [facility] following chest pain.Patient was complaining of dry cough for last 3 days, and 1 episode of fever spike during hospitalization stay. Work-up during this admission showed potassium of 4.8, LFT panel normal, creatinine of 2.1, hemoglobin of 11.9, high sensitive troponin done at [facility] was 175, patient was transferred to [facility] for further evaluation. Repeat EKG showed sinus rhythm, no acute changes. Repeat troponin x2 was negative. Seen by cardiology team, recommended medical treatment. His lipid panel was elevated with total cholesterol of 251, LDL of 169, Lipitor was discontinued and patient was started on Crestor 40 mg daily by cardiology team. Patient also had acute kidney injury on chronic kidney disease, baseline stage III, creatinine during this admission was 2.1, diuretics was on hold following which creatinine improved to 1.6 at the time of discharge. Nephrology team recommended to decrease dose of torsemide to 20 mg p.o. daily at the time of discharge, repeat BMP panel to be rechecked in 3 days with PCP. He also had fever spike, chest x-ray negative for infiltrate. COVID test was positive. He did not have further fever spike, oxygenation was stable ranging between 93-96%. He was also seen by pulmonary team, in regards to recent sleep study, started on BiPAP therapy for HIPOLITO. On the day of discharge he denies new symptom, afebrile Saturation was ranging between 93 to 96% on room air On examination- Obese male Oral: Tongue is semi-moist Cardiovascular: S1S2 heard, no gallop Respiratory: Clear to auscultation bilaterally anteriorly Decrease breath sound both bases posteriorly Abdomen: Soft, non-tender, non-distended with normal bowel sounds Neurology- no focal neurology,Awake alert Extremity- mild peripheral edema both lower extremities CONSULTANTS: Cardiology, nephrology RECOMMENDED NEXT STEPS: BMP panel to be rechecked on 12/11/2022 on 12/14/2022 Follow-up with nephrology team in 1 week time and cardiology in 2 weeks time. DISCHARGE MEDICATIONS: Medication List START taking these medications benzonatate 100 MG capsule Commonly known as: Tessalon Take 1 capsule (100 mg) by mouth 3 times daily as needed for cough for up to 7 days. Do not crush or chew. rosuvastatin 40 MG tablet Commonly known as: Crestor Take 1 tablet (40 mg) by mouth Nightly. CHANGE how you take these medications metoprolol tartrate 25 MG tablet Commonly known as: Lopressor Take 1 tablet (25 mg) by mouth 2 times daily. What changed: medication strength how much to take nitroglycerin 0.4 MG SL tablet Commonly known as: Nitrostat Place 1 tablet under the tongue every 5 minutes as needed for Chest pain. If no relief after 3 tablets, call immediately. What changed: Another medication with the same name was removed. Continue taking this medication, and follow the directions you see here. torsemide 20 MG tablet Commonly known as: Demadex Take 1 tablet (20 mg) by mouth daily. Patient was also instructed to take additional 20 mg torsemide, if weight gain of more than 2 pounds in 1 day. What changed: how much to take additional instructions CONTINUE taking these medications amiodarone 200 MG tablet Commonly known as: Pacerone apixaban 5 MG tablet Commonly known as: Eliquis cholecalciferol 20 MCG (800 UNIT) tablet Commonly known as: Vitamin D-3 clopidogrel 75 MG tablet Commonly known as: Plavix isosorbide mononitrate ER 60 MG 24 hr tablet Commonly known as: Imdur Take 1 tablet (60 mg) by mouth daily. Do not crush or chew. minoxidil 10 MG tablet Commonly known as: Loniten spironolactone 25 MG tablet Commonly known as: Aldactone Take 1 tablet (25 mg) by mouth 2 times daily. STOP taking these medications amLODIPine 10 MG tablet Commonly known as: Norvasc atorvastatin 80 MG tablet Commonly known as: Lipitor lisinopril 20 MG tablet Where to Get Your Medications You can get these medications from any pharmacy Bring a paper prescription for each of these medications benzonatate 100 MG capsule metoprolol tartrate 25 MG tablet rosuvastatin 40 MG tablet Information about where to get these medications is not yet available Ask your nurse or doctor about these medications torsemide 20 MG tablet DIET: Adult diet Regular; No Added Salt (3-4 gm) ACTIVITY: No restriction. COMPLEXITY OF FOLLOW UP: [] Moderate Complexity: follow up within 7-14 calendar days (65180) [] Severe Complexity: follow up within 7 calendar days (05502) FOLLOW UP TESTING, PENDING RESULTS OR REFERRALS AT TRANSITIONAL CARE VISIT: [] Yes [] No PENDING STUDIES: DISPOSITION: Home FACILITY/HOME CARE AGENCY NAME: Follow up with Elizabeth Logan MD [address] [facility] [id number] Schedule an appointment as soon as possible for a visit on 12/11/2022 CBC, BMP panel on 12/11/2022 and 12/14/2022. Campbell Gonzales MD [address] [facility] [phone] Schedule an appointment as soon as possible for a visit in 2 week(s) Javier Benton MD [address] [facility] [phone] Schedule an appointment as soon as possible for a visit in 1 week(s) Sy Boyce MD [address] [facility] [address] [facility] [address] Follow up on 02/24/2023 INSTRUCTIONS TO MA/SW: Please call patient on day after discharge (must document patient contacted within 2 business days of discharge). FOLLOW UP QUESTIONS FOR MA/SW: 1. Did you get medications filled and taking them as instructed from discharge? 2. Are you following your discharge instructions from your hospital stay? 3. Please confirm patient is scheduled for a follow up appointment within the above time frame. DISCHARGE TIME: > 30 minutes SIGNED: Ashley Edgar MD 12/08/2022, 9:35 AM documented in this encounter [facility] 12-07-2022 Note [facility] and [facility] Cardiology /Electrophysiology Progress Note Reason for consult: Chest pain HPI / Interval History: Shannon Dickerson is a 67 y.o[address] known to Dr. Campbell Gonzales with hx of complex CAD and prior stenting of the LAD, Lcx, and RCA. His last LHC was 12/01/21 and at that time was noted to have midRCA instent restenosis with 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 and L->R collaterals and had unsuccessful attempt at PCI and medical Rx recommended. At that time, he had patent stents to the proxLAD and pro-mid Lcx. Other hx includes paroxsymal atrial fibrillation, CVA, COPD, HTN, HLD, obesity, and HIPOLITO. His last TTE was 11/18/22 revealing normal LVEF 55% with unchanged WMA within the basal inferolateral and basal inferior paredes. When he last saw Dr. Gonzales in office 12/03/22 he reported intermittent chest pain after eating and following activity. At that time, his edema was improved. BMP was ordered revealing stable and improved renal insuffiency (creatinine 1.39, down from 1.53). He was transferred from [facility] here 12/06/22 for chest pain. There, his Hs troponin was 174 and then 175 (upper limit of normal 80). He has been having chest pain resolved with rest. Sx did not improve with NTG. He is in the process of getting his HIPOLITO treated. Pt is seated in the chair. He reports feeling fatigued and having generalized weakness. He has a non-productive cough. He has not had any nausea or vomiting. Appetite has been poor. He reports hx of chronic, intermittent diarrhea but that is unchanged. He had a dry BM yesterday. He states that when he initially presented to [facility] that he had intense chest tightness rated 8/10 while standing in his kitchen. It did not radiate. He felt SOB with it. No diaphoresis, nausea, or numbness/tingling. He took SL NTG with relief. He has chronic, unchanged WATTS and exertional mid sternal chest tightness with stair climbing and some of his ADLS but this is unchanged. He denies taking any extra diuretics recently with recent ALBINA. He actually has been drinking several glasses of water per day. He has had chronic, stable trace BLLE edema. No PND, orthopnea, palpitations, or syncope. Currently, he denies any SOB or chest pain. Assessment/Plan Chest pain in the setting of known complex CAD with RCA 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 and multiple prior PCI: Stable, no angina now. EKG reviewed from today and unchanged from previous. No ischemic changes. Troponin I here negative x2. However, Hs Troponins at [place] were elevated but insignificant (reviewed with Dr. Gonzales). It is possible that his symptoms and mild rise in troponin at outside facility secondary to COVID-19 infection. Stop ASA as he is already on eliquis for afib. Continue plavix. Do not recommend triple therapy. Reports compliance with his lipitor despite uncontrolled HLD, see #3. Continue imdur 60 mg daily and lopressor 50 mg BID. BP soft earlier this AM limiting optimizing his BB or imdur dosages. Once recovered from acute illness, would reassess angina as OP to determine if we need to increase imdur or add ranexa. No ischemic work-up at this time. HTN: Initially uncontrolled but now improved with an isolated episode of hypotension earlier today. BP now 115/56. Would continue to monitor. Goal <130/80. HLD: Lipids 1 year ago were well controlled. Now, labs per today reveal significantly uncontrolled levels. Compliant with lipitor 80 mg daily, will change to crestor 40 mg daily for tighter control. Recommend checking fasting lipids and hepatic fxn in 3 months time. ALBINA on CKD: Creatinine worse today, 2.12. Baseline has been 1.2-1.4 by recent labs. Nephrology consulted. Avoid nephrotoxins. He is euvolemic on exam.Torsemide and aldactone both held until renal fxn back at baseline and ok to resume per nephrology. COVID-19 infection: Mgt per primary. Paroxysmal atrial fib:Maintains SR. On eliquis for stroke prevention. Continue amio and metoprolol. HIPOLITO: Working on getting this treated with BiPAP as OP. Will discuss with Dr. Gonzales. He will come to see the patient. Further recommendations to follow. Clarified, pt has been taking torsemide 20 mg BID at home. He has been taking aldactone 25 mg BID. Recommend resuming both agents to prevent volume overload. When he was seen in office about 1 month ago he was fluid overloaded and responded well to torsemide and aldactone. At follow-up visit 12/03 he was doing well and euvolemic. I have messaged nephrology and primary service about resuming his diuretics. From cardiac standpoint, ok for discharge. Will coordinate a BMP to be done in about 1 week to follow his renal fxn and electrolytes. May need to accept a rise in renal fxn to maintain euvolemia. His renal fxn may improve. Addendum: D/w nephrology who recommends resuming torsemide 20 mg daily starting tomorrow, please hold in AM if renal fxn worse. The aldactone was already resumed. Will sign off. Please call with qu (more content not included)... [facility] 12-07-2022 Note Formatting of this n ote might be different from the original. Care Managment Initial Assessment Date: 12/07/2022 Patient Name: Shannon Dickerson : 1955 Patient Information Source of Information: Patient Cognition/Language: WFL - Within Functional Limits Permission given to speak with patient sales solutions representative/caregiver as indicated: Yes Confirmation of Payer with patient/family: Yes Payer Name: medicare [place]: No Confirmation of Primary Care Physician: Confirmed PCP Name: Dr. Berlin Logan Seen in last 2 years?: Yes Primary Caregiver: Self If assistance needed, confirmed caregiver ready, willing and able to care for patient at discharge: Yes Confirmed with: Living Arrangements Current Residence: House Number of Floors 1 Number of Entry Steps: 2 Bed/Bath Levels: Both first floor Facility: Facility Name: Plan to Return: Yes Lives with: Alone Support Systems: Family members Activities of Daily Living Ambulation: Independent Bathing/Dressing: Independent Elimination/Continence/Toileting: Independent Feeding: Independent Who Assists with Activities of Daily Living: Instrumental Activities of Daily Living Prescription Coverage: Yes Pharmacy Used: [facility] Medication Management: Independent Transportation/Shopping: Independent Transportation Mode: Car Needs Assistance with Transportation at Discharge: No Meal Preparation: Independent Laundry/Cleaning: Independent Finances/Bill Paying: Independent Communication: Independent Types of Care Services/Equipment Utilized Care Services: Dialysis Type: NA Durable Medical Equipment: Cane, Walker, Raised Toilet Seat, Shower Seat, CPap, Nebulizer Patient's Goal/Discharge Plan Patient expects to be discharged to: Home Discharge Planning Actions: Continue to follow Patient's Choice Rights and [employer] and Collaborative Relationships Disclosed as Indicated for Post-Acute Care: No Interdisciplinary Team Engagement: Social Work Referral for: Additional Information: Patient on 1c for chest pain. Trops elevated at outside facility; cardio following. Creat 2.12; nephro consult, US retroperitoneum pending. COVID+. Call placed to patient's cell phone for assessment due to COVID positive status. Patient lives alone, is independent, and still drives. Patient denies needs at this time. TCC to follow. Lore Florian RN [facility] [employer] 12-07-2022 Note Formatting of this n ote might be different from the original. Care Managment Initial Assessment Date: 12/07/2022 Patient Name: Shannon Dickerson : 1955 Patient Information Source of Information: Patient Cognition/Language: WFL - Within Functional Limits Permission given to speak with patient sales solutions representative/caregiver as indicated: Yes Confirmation of Payer with patient/family: Yes Payer Name: medicare [place]: No Confirmation of Primary Care Physician: Confirmed PCP Name: Dr. Berlin Logan Seen in last 2 years?: Yes Primary Caregiver: Self If assistance needed, confirmed caregiver ready, willing and able to care for patient at discharge: Yes Confirmed with: Living Arrangements Current Residence: House Number of Floors 1 Number of Entry Steps: 2 Bed/Bath Levels: Both first floor Facility: Facility Name: Plan to Return: Yes Lives with: Alone Support Systems: Family members Activities of Daily Living Ambulation: Independent Bathing/Dressing: Independent Elimination/Continence/Toileting: Independent Feeding: Independent Who Assists with Activities of Daily Living: Instrumental Activities of Daily Living Prescription Coverage: Yes Pharmacy [facility] Medication Management: Independent Transportation/Shopping: Independent Transportation Mode: Car Needs Assistance with Transportation at Discharge: No Meal Preparation: Independent Laundry/Cleaning: Independent Finances/Bill Paying: Independent Communication: Independent Types of Care Services/Equipment Utilized Care Services: Dialysis Type: NA Durable Medical Equipment: Cane, Walker, Raised Toilet Seat, Shower Seat, CPap, Nebulizer Patient's Goal/Discharge Plan Patient expects to be discharged to: Home Discharge Planning Actions: Continue to follow Patient's Choice Rights and [employer] and Collaborative Relationships Disclosed as Indicated for Post-Acute Care: No Interdisciplinary Team Engagement: Social Work Referral for: Additional Information: Patient on 1c for chest pain. Trops elevated at outside facility; cardio following. Creat 2.12; nephro consult, US retroperitoneum pending. COVID+. Call placed to patient's cell phone for assessment due to COVID positive status. Patient lives alone, is independent, and still drives. Patient denies needs at this time. TCC to follow. Lore Florian RN [facility] [employer] 12-07-2022 Miscellaneous Notes Care Managment Initial Assessment Date: 12/07/2022 Patient Name: Shannon Dickerson : 1955 Patient Information Source of Information: Patient Cognition/Language: WFL - Within Functional Limits Permission given to speak with patient sales solutions representative/caregiver as indicated: Yes Confirmation of Payer with patient/family: Yes Payer Name: medicare : No Confirmation of Primary Care Physician: Confirmed PCP Name: Dr. Berlin Logan Seen in last 2 years?: Yes Primary Caregiver: Self If assistance needed, confirmed caregiver ready, willing and able to care for patient at discharge: Yes Confirmed with: Living Arrangements Current Residence: House Number of Floors 1 Number of Entry Steps: 2 Bed/Bath Levels: Both first floor Facility: Facility Name: Plan to Return: Yes Lives with: Alone Support Systems: Family members Activities of Daily Living Ambulation: Independent Bathing/Dressing: Independent Elimination/Continence/Toileting: Independent Feeding: Independent Who Assists with Activities of Daily Living: Instrumental Activities of Daily Living Prescription Coverage: Yes Pharmacy [facility] Medication Management: Independent Transportation/Shopping: Independent Transportation Mode: Car Needs Assistance with Transportation at Discharge: No Meal Preparation: Independent Laundry/Cleaning: Independent Finances/Bill Paying: Independent Communication: Independent Types of Care Services/Equipment Utilized Care Services: Dialysis Type: NA Durable Medical Equipment: Cane, Walker, Raised Toilet Seat, Shower Seat, CPap, Nebulizer Patient's Goal/Discharge Plan Patient expects to be discharged to: Home Discharge Planning Actions: Continue to follow Patient's Choice Rights and [employer] and Collaborative Relationships Disclosed as Indicated for Post-Acute Care: No Interdisciplinary Team Engagement: Social Work Referral for: Additional Information: Patient on 1c for chest pain. Trops elevated at outside facility; cardio following. Creat 2.12; nephro consult, US retroperitoneum pending. COVID+. Call placed to patient's cell phone for assessment due to COVID positive status. Patient lives alone, is independent, and still drives. Patient denies needs at this time. TCC to follow. Lore Florian RN Consult noted. Full note to follow. Thank you Javier Benton documented in this encounter [facility] 12-07-2022 Consult note Associated Order (s): IP CONSULT TO NEPHROLOGY [facility] Nephrology Consult Note Reason for Consult: ALBINA/CKD Requesting Physician: Ashley Edgar MD Chief Complaint: Chest pain History of Present Ilness: 67-year-old male past medical history of obesity, obstructive sleep apnea-due to get new BiPAP machine, CAD with multiple stent, atrial fibrillation anticoagulation, CVA, COPD not on home oxygen, history of heart failure with preserved ejection fraction, echo from September 2022 reviewed showed EF of 55%, no valve disease, depression, GERD, hypertension, hyperlipidemia, chronic kidney disease stage III with baseline creatinine of 1.5, presented from an outside emergency room with chest pain. He reports he was in his usual state of health he does have some baseline dyspnea on exertion. However, he developed worsening chest pain was seen at the [place] [facility] found to have elevated troponins now transferred to [facility]. Currently patient has no chest pain. Nephrology is asked to see the patient for ALBINA/CKD. Patient currently has a scr level of 2.12, previously 1.39 and has a baseline of ~1.2-1.5. He is prescribed lisinopril, torsemide and spironolactone outpatient. Appears to be having some fluctuations in hemodynamics related to blood pressure. Some relative hypotension is noted as well. No evidence of CYNDIE. MILA c/w mild bilateral perinephric edema with cysts. UOP is not well documented. Patient found to have COVID infection since. Denies any significant shortness of breath. Denies noticing decreased urine output. Denies taking NSAIDs. Imaging studies reviewed. Showed some perinephric edema. Past Medical History: Past Medical History: Diagnosis Date Angina pectoris ([facility]) Anxiety Arrhythmia A-fib Asthma CAD (coronary artery disease) Cerebral artery occlusion with cerebral infarction ([facility]) COPD (chronic obstructive pulmonary disease) ([facility]) Depression WATTS (dyspnea on exertion) Fatigue GERD (gastroesophageal reflux disease) History of cardioversion 05/07/2016 Successful conversion of a-fib to SR History of left heart catheterization 05/07/2016 60% stenosis right posterior descending, patent stents in prox, mid & distal RCA, patent stents in med LCx. Findings unchanged from previous study. 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 NSTEMI (non-ST elevated myocardial infarction) ([facility]) ([facility]) 12/2012 NSTEMI (non-ST elevated myocardial infarction) ([facility]) ([facility]) 05/2014 Obesity [place] (myocardial infarction) HIPOLITO (obstructive sleep apnea) HIPOLITO on CPAP PAF (paroxysmal atrial fibrillation) ([facility]) ([facility]) Rheumatoid arthritis(714.0) ([facility]) ST segment elevation myocardial infarction (STEMI) of anterolateral wall, subsequent episode of care ([facility]) ([facility]) TIA (transient ischemic attack) Past Surgical History: Past Surgical History: Procedure Laterality Date CAPSULOTOMY, HAND 05/07/2016 CARDIAC PROCEDURE Left 05/2015 CARDIAC PROCEDURE Left 06/03/2017 CARDIAC PROCEDURE Bilateral 01/2010 CARDIAC PROCEDURE Left 09/05/2019 PCI to distal RCA and PL branch CHOLECYSTECTOMY 10/30/2019 CORONARY ANGIOPLASTY WITH STENT PLACEMENT Left 11/2006 restent RCA, FLAKO to CX CORONARY ANGIOPLASTY WITH STENT PLACEMENT Left 05/2014 PTCA /cuttung balloon to instent restenosis RCA CORONARY ANGIOPLASTY WITH STENT PLACEMENT Left 10/2006 DESto prox Rt PAV, mid & dist RCA CORONARY ANGIOPLASTY WITH STENT PLACEMENT Left 11/2014 FLAKO to RCA CORONARY ANGIOPLASTY WITH STENT PLACEMENT Left 10/2007 FLAKO to Prox Rt PAV, mid-dist RCA CORONARY ANGIOPLASTY WITH STENT PLACEMENT Left 03/2009 FLAKO to mid RCA CORONARY ANGIOPLASTY WITH STENT PLACEMENT Left 12/01/2021 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/PCI to prox RCA CORONARY ANGIOPLASTY WITH STENT PLACEMENT Left 10/2013 FLAKO to prox & mid RCA CORONARY ANGIOPLASTY WITH STENT PLACEMENT Left 12/2007 FLAKO to LAD CORONARY ANGIOPLASTY WITH STENT PLACEMENT Bilateral 03/17/2021 Flako to the Mid RCA, and the Distal RCA CORONARY ANGIOPLASTY WITH STENT PLACEMENT Left 12/2012 FLAKO to mid RCA & prox-mid Rt GRACE JOINT REPLACEMENT 03/2019 TOTAL HIP ARTHROPLASTY Left 12/2012 Home Medications: No current facility-administered medications on file prior to encounter. Current Outpatient Medications on File Prior to Encounter Medication Sig Dispense Refill amiodarone (Pacerone) 200 MG tablet Take 1 tablet by mouth daily. amLODIPine (Norvasc) 10 MG tablet Take 1 tablet by mouth daily. apixaban (Eliquis) 5 MG tablet Take 1 tablet by mouth 2 times daily. atorvastatin (Lipitor) 80 MG tablet Take 1 tablet by mouth daily. cholecalciferol (Vitamin D-3) 20 MCG (800 UNIT) tablet Take 800 Units by mouth daily. clopidogrel (Plavix) 75 MG tablet Take 1 tablet by mouth daily. isosorbide mononitrate ER (Imdur) 60 MG 24 hr tablet Take 1 tablet (60 mg) by mouth daily. Do not crush or chew. 90 tablet 3 lisinopril 20 MG tablet Take 1 tablet by mouth daily. metoprolol tartrate (Lopressor) 50 MG tablet Take 1 tablet by mouth 2 times daily. minoxidil (Loniten) 10 MG tablet Take 0.5 tablets by mouth 2 times daily. nitroglycerin (Nitrostat) 0.[address] 1 tablet under the tongue every 5 minutes as needed for Chest pain. If no relief after 3 tablets, call 9-1-1 immediately. 25 tablet 3 nitroglycerin (Nitrostat) 0.[address] 1 tablet (0.4 mg) under the tongue every 5 minutes as needed for chest pain. May repeat dose every 5 minutes for up to 3 doses total. 100 tablet 11 spironolactone (Aldactone) 25 MG tablet Take 1 tablet (25 mg) by mouth 2 times daily. 180 tablet 3 torsemide (Demadex) 20 MG tablet Take 0.5 tablets (10 mg) by mouth daily. (Patient taking differently: Take 20 mg by mouth daily.) 180 tablet 3 [DISCONTINUED] Torsemide 40 MG tablet Take 20 mg by mouth 2 times daily. 40 mg twice daily for 3 days then 20mg twice daily following (Patient taking differently: Take 20 mg by mouth 2 times daily.) 120 tablet 11 [DISCONTINUED] zolpidem (Ambien) 5 MG tablet Take 1 tablet (5 mg) by mouth Once for 1 dose. Take on the night of your sleep study. 1 tablet 0 Allergies: Penicillins Social History: Social History Socioeconomic History Marital status: Legally Spouse name: Not on file Number of children: Not on file Years of education: Not on file Highest education level: Not on file Occupational History Not on file Tobacco Use Smoking status: Never Smokeless tobacco: Never Substance and Sexual Activity Alcohol use: Not Currently Drug use: No Sexual activity: Not on file Other Topics Concern Not on file Social History Narrative Not on file Social Determinants of Health Financial Resource Strain: Not on file Food Insecurity: Not on file Transportation Needs: Not on file Physical Activity: Not on file Stress: Not on file Social Connections: Not on file Intimate Partner Violence: Not At Risk (12/06/2022) Humiliation, Afraid, Rape, and Kick questionnaire Fear of Current or Ex-Partner: No Emotionally Abused: No Physically Abused: No Sexually Abused: No Housing Stability: Not on file Family History: Family History Problem Relation Name Age of Onset Diabetes Paternal Grandmother Diabetes Maternal Grandfather Cancer Sister Hypertension Mother Diabetes Sister Diabetes Paternal Grandfather Heart disease Paternal Grandmother Heart disease Paternal Grandfather Cancer Father Diabetes Brother Review of Systems: Pertinent positives stated above in HPI. All other systems were reviewed and were negative. Physical exam: Constitutional: Vitals: 12/06/22 1917 12/06/22 2207 12/07/22 0323 12/07/22 0741 BP: 106/66 101/52 99/54 115/56 BP Location: Left arm Right arm Patient Position: Sitting Sitting Pulse: 88 70 92 86 Resp: 24 22 20 19 Temp: 37.6 C (99.6 F) 36.6 C (97.8 F) 36.9 C (98.5 F) 36.4 C (97.5 F) TempSrc: Temporal Temporal Temporal Temporal SpO2: 96% 96% 94% 98% Weight: (!) 141 kg (310 lb 14.4 oz) CURRENT TEMPERATURE: Temp: 36.4 C (97.5 F) MAXIMUM TEMPERATURE OVER 24HRS: Temp (24hrs), Av.4 C (99.3 F), Min:36.4 C (97.5 F), Max:38.5 C (101.3 F) CURRENT PULSE: Heart Rate: 86 CURRENT BLOOD PRESSURE: BP: 115/56 24HR BLOOD PRESSURE RANGE: Systolic (24hrs), Av , Min:99 , Max:157 ; Diastolic (24hrs), Av, Min:52, Max:88 24HR INTAKE/OUTPUT: Intake/Output Summary (Last 24 hours) at 12/07/2022 1053 Last data filed at 12/06/20221999 Gross per 24 hour Intake 200 ml Output -- Net 200 ml Physical Exam: Appearance: NAD, awake, alert, cooperative to exam Eyes: PERRLA, clear sclera ENT: hearing normal, moist mucus membranes Neck: supple, no JVD, no thyromegaly Respiratory: breathing unlabored, lungs CTA B/L anteriorly Cardiovascular: heart RRR Gastrointestinal: abdomen soft, non-tender, non-distended, normoactive bowel sounds. Musculoskeletal: normal muscle strength and tone, + edema of BLE Skin: warm and dry, no rash or wounds Neurologic: Alert and oriented psychiatric: Cooperative to exam. Appropriate mood. Data: LIVER PROFILE: Recent Labs 12/07/22 0018 AST 30 ALT 39 BILITOT 1.2 ALKPHOS 76 CBC: Recent Labs 12/07/22 0018 WBC 9.4 RBC 3.95* HGB 11.9* HCT 34.9* MCV 88.2 RDW 15.1* PLT 213 BMP: Recent Labs 12/07/22 0018 NA 137 K 4.8 CL 106 CO2 24 BUN 36* CREATININE 2.12* BNP: No results for input(s): BNP in the last 72 hours. ABGs: No results found for: PH, PCO2, PO2, HCO3, O2SAT Nephro Labs: Recent Labs 12/07/22 0905 COLORU Light Yellow CLARITYU Clear GLUCOSEU Normal BLOODU Negative UROBILINOGEN Normal Imaging: reviewed Assessment: ALBINA: The differential includes at this time cardiorenal syndrome versus nonspecific ALBINA secondary to COVID-19 infection, borderline blood pressure 2. HFpEF 3. COVID 19 +ve 4. CKD3b 5. HTN w/ CKD3b 6. Anemia w/ CKD3b Plan: -Scr currently 2.12, bl~1.2-1.5, non oliguric, BP stable -Hold acei. -Urine studies requested. -Bladder scan x1 for pvr, place child for >200cc -Avoid nephrotoxins and contrast dye -We will discontinue amlodipine also for now. Would prefer for the patient to have systolic blood pressure more than 120 for better renal perfusion. -Continue metoprolol and isosorbide. Might consider discontinuing them also depending on blood pressure. We will add holding parameters. -Strict intake/output charting. -Daily standing weight. -Okay to use IV Lasix in the setting of hypoxic respiratory failure, shortness of breath. -Daily standing weight. If increasing, resume torsemide. Would hold on resuming Aldactone for now. -We will follow closely with you Javier Benton [facility] 12-07-2022 Consult note Associated Order (s): IP CONSULT TO NEPHROLOGY [facility] Nephrology Consult Note Reason for Consult: [place]/CKD Requesting Physician: Ashley Edgar MD Chief Complaint: Chest pain History of Present Ilness: 67-year-old male past medical history of obesity, obstructive sleep apnea-due to get new BiPAP machine, CAD with multiple stent, atrial fibrillation anticoagulation, CVA, COPD not on home oxygen, history of heart failure with preserved ejection fraction, echo from September 2022 reviewed showed EF of 55%, no valve disease, depression, GERD, hypertension, hyperlipidemia, chronic kidney disease stage III with baseline creatinine of 1.5, presented from an outside emergency room with chest pain. He reports he was in his usual state of health he does have some baseline dyspnea on exertion. However, he developed worsening chest pain was seen at the [place] ED found to have elevated troponins now transferred to [facility]. Currently patient has no chest pain. Nephrology is asked to see the patient for ALBINA/CKD. Patient currently has a scr level of 2.12, previously 1.39 and has a baseline of ~1.2-1.5. He is prescribed lisinopril, torsemide and spironolactone outpatient. Appears to be having some fluctuations in hemodynamics related to blood pressure. Some relative hypotension is noted as well. No evidence of CYNDIE. MILA c/w mild bilateral perinephric edema with cysts. UOP is not well documented. Patient found to have COVID infection since. Denies any significant shortness of breath. Denies noticing decreased urine output. Denies taking NSAIDs. Imaging studies reviewed. Showed some perinephric edema. Past Medical History: Past Medical History: Diagnosis Date Angina pectoris ([facility]) Anxiety Arrhythmia A-fib Asthma CAD (coronary artery disease) Cerebral artery occlusion with cerebral infarction ([facility]) COPD (chronic obstructive pulmonary disease) ([facility]) Depression WATTS (dyspnea on exertion) Fatigue GERD (gastroesophageal reflux disease) History of cardioversion 05/07/2016 Successful conversion of a-fib to SR History of left heart catheterization 05/07/2016 60% stenosis right posterior descending, patent stents in prox, mid & distal RCA, patent stents in med LCx. Findings unchanged from previous study. 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 NSTEMI (non-ST elevated myocardial infarction) ([facility]) ([facility]) 12/2012 NSTEMI (non-ST elevated myocardial infarction) ([facility]) ([facility]) 05/2014 Obesity [place] (myocardial infarction) HIPOLITO (obstructive sleep apnea) HIPOLITO on CPAP PAF (paroxysmal atrial fibrillation) ([facility]) ([facility]) Rheumatoid arthritis(714.0) ([facility]) ST segment elevation myocardial infarction (STEMI) of anterolateral wall, subsequent episode of care ([facility]) ([facility]) TIA (transient ischemic attack) Past Surgical History: Past Surgical History: Procedure Laterality Date CAPSULOTOMY, HAND 05/07/2016 CARDIAC PROCEDURE Left 05/2015 CARDIAC PROCEDURE Left 06/03/2017 CARDIAC PROCEDURE Bilateral 01/2010 CARDIAC PROCEDURE Left 09/05/2019 PCI to distal RCA and PL branch CHOLECYSTECTOMY 10/30/2019 CORONARY ANGIOPLASTY WITH STENT PLACEMENT Left 11/2006 restent RCA, FLAKO to CX CORONARY ANGIOPLASTY WITH STENT PLACEMENT Left 05/2014 PTCA /cuttung balloon to instent restenosis RCA CORONARY ANGIOPLASTY WITH STENT PLACEMENT Left 10/2006 DESto prox Rt PAV, mid & dist RCA CORONARY ANGIOPLASTY WITH STENT PLACEMENT Left 11/2014 FLAKO to RCA CORONARY ANGIOPLASTY WITH STENT PLACEMENT Left 10/2007 FLAKO to Prox Rt PAV, mid-dist RCA CORONARY ANGIOPLASTY WITH STENT PLACEMENT Left 03/2009 FLAKO to mid RCA CORONARY ANGIOPLASTY WITH STENT PLACEMENT Left 12/01/2021 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/PCI to prox RCA CORONARY ANGIOPLASTY WITH STENT PLACEMENT Left 10/2013 FLAKO to prox & mid RCA CORONARY ANGIOPLASTY WITH STENT PLACEMENT Left 12/2007 FLAKO to LAD CORONARY ANGIOPLASTY WITH STENT PLACEMENT Bilateral 03/17/2021 Flako to the Mid RCA, and the Distal RCA CORONARY ANGIOPLASTY WITH STENT PLACEMENT Left 12/2012 FLAKO to mid RCA & prox-mid Rt GRACE JOINT REPLACEMENT 03/2019 TOTAL HIP ARTHROPLASTY Left 12/2012 Home Medications: No current facility-administered medications on file prior to encounter. Current Outpatient Medications on File Prior to Encounter Medication Sig Dispense Refill amiodarone (Pacerone) 200 MG tablet Take 1 tablet by mouth daily. amLODIPine (Norvasc) 10 MG tablet Take 1 tablet by mouth daily. apixaban (Eliquis) 5 MG tablet Take 1 tablet by mouth 2 times daily. atorvastatin (Lipitor) 80 MG tablet Take 1 tablet by mouth daily. cholecalciferol (Vitamin D-3) 20 MCG (800 UNIT) tablet Take 800 Units by mouth daily. clopidogrel (Plavix) 75 MG tablet Take 1 tablet by mouth daily. isosorbide mononitrate ER (Imdur) 60 MG 24 hr tablet Take 1 tablet (60 mg) by mouth daily. Do not crush or chew. 90 tablet 3 lisinopril 20 MG tablet Take 1 tablet by mouth daily. metoprolol tartrate (Lopressor) 50 MG tablet Take 1 tablet by mouth 2 times daily. minoxidil (Loniten) 10 MG tablet Take 0.5 tablets by mouth 2 times daily. nitroglycerin (Nitrostat) 0.[address] 1 tablet under the tongue every 5 minutes as needed for Chest pain. If no relief after 3 tablets, call 9-1-1 immediately. 25 tablet 3 nitroglycerin (Nitrostat) 0.[address] 1 tablet (0.4 mg) under the tongue every 5 minutes as needed for chest pain. May repeat dose every 5 minutes for up to 3 doses total. 100 tablet 11 spironolactone (Aldactone) 25 MG tablet Take 1 tablet (25 mg) by mouth 2 times daily. 180 tablet 3 torsemide (Demadex) 20 MG tablet Take 0.5 tablets (10 mg) by mouth daily. (Patient taking differently: Take 20 mg by mouth daily.) 180 tablet 3 [DISCONTINUED] Torsemide 40 MG tablet Take 20 mg by mouth 2 times daily. 40 mg twice daily for 3 days then 20mg twice daily following (Patient taking differently: Take 20 mg by mouth 2 times daily.) 120 tablet 11 [DISCONTINUED] zolpidem (Ambien) 5 MG tablet Take 1 tablet (5 mg) by mouth Once for 1 dose. Take on the night of your sleep study. 1 tablet 0 Allergies: Penicillins Social History: Social History Socioeconomic History Marital status: Legally Spouse name: Not on file Number of children: Not on file Years of education: Not on file Highest education level: Not on file Occupational History Not on file Tobacco Use Smoking status: Never Smokeless tobacco: Never Substance and Sexual Activity Alcohol use: Not Currently Drug use: No Sexual activity: Not on file Other Topics Concern Not on file Social History Narrative Not on file Social Determinants of Health Financial Resource Strain: Not on file Food Insecurity: Not on file Transportation Needs: Not on file Physical Activity: Not on file Stress: Not on file Social Connections: Not on file Intimate Partner Violence: Not At Risk (12/06/2022) Humiliation, Afraid, Rape, and Kick questionnaire Fear of Current or Ex-Partner: No Emotionally Abused: No Physically Abused: No Sexually Abused: No Housing Stability: Not on file Family History: Family History Problem Relation Name Age of Onset Diabetes Paternal Grandmother Diabetes Maternal Grandfather Cancer Sister Hypertension Mother Diabetes Sister Diabetes Paternal Grandfather Heart disease Paternal Grandmother Heart disease Paternal Grandfather Cancer Father Diabetes Brother Review of Systems: Pertinent positives stated above in HPI. All other systems were reviewed and were negative. Physical exam: Constitutional: Vitals: 12/06/22 1917 12/06/22 2207 12/07/22 0323 12/07/22 0741 BP: 106/66 101/52 99/54 115/56 BP Location: Left arm Right arm Patient Position: Sitting Sitting Pulse: 88 70 92 86 Resp: 20 19 Temp: 37.6 C (99.6 F) 36.6 C (97.8 F) 36.9 C (98.5 F) 36.4 C (97.5 F) TempSrc: Temporal Temporal Temporal Temporal SpO2: 96% 96% 94% 98% Weight: (!) 141 kg (310 lb 14.4 oz) CURRENT TEMPERATURE: Temp: 36.4 C (97.5 F) MAXIMUM TEMPERATURE OVER 24HRS: Temp (24hrs), Av.4 C (99.3 F), Min:36.4 C (97.5 F), Max:38.5 C (101.3 F) CURRENT PULSE: Heart Rate: 86 CURRENT BLOOD PRESSURE: BP: 115/56 24HR BLOOD PRESSURE RANGE: Systolic (24hrs), Av , Min:99 , Max:157 ; Diastolic (24hrs), Av, Min:52, Max:88 24HR INTAKE/OUTPUT: Intake/Output Summary (Last 24 hours) at 12/07/2022 1053 Last data filed at 12/06/20221999 Gross per 24 hour Intake 200 ml Output -- Net 200 ml Physical Exam: Appearance: NAD, awake, alert, cooperative to exam Eyes: PERRLA, clear sclera ENT: hearing normal, moist mucus membranes Neck: supple, no JVD, no thyromegaly Respiratory: breathing unlabored, lungs CTA B/L anteriorly Cardiovascular: heart RRR Gastrointestinal: abdomen soft, non-tender, non-distended, normoactive bowel sounds. Musculoskeletal: normal muscle strength and tone, + edema of BLE Skin: warm and dry, no rash or wounds Neurologic: Alert and oriented psychiatric: Cooperative to exam. Appropriate mood. Data: LIVER PROFILE: Recent Labs 12/07/22 0018 AST 30 ALT 39 BILITOT 1.2 ALKPHOS 76 CBC: Recent Labs 12/07/22 0018 WBC 9.4 RBC 3.95* HGB 11.9* HCT 34.9* MCV 88.2 RDW 15.1* PLT 213 BMP: Recent Labs 12/07/22 0018 NA 137 K 4.8 CL 106 CO2 24 BUN 36* CREATININE 2.12* BNP: No results for input(s): BNP in the last 72 hours. ABGs: No results found for: PH, PCO2, PO2, HCO3, O2SAT Nephro Labs: Recent Labs 12/07/22 0905 COLORU Light Yellow CLARITYU Clear GLUCOSEU Normal BLOODU Negative UROBILINOGEN Normal Imaging: reviewed Assessment: ALBINA: The differential includes at this time cardiorenal syndrome versus nonspecific ALBINA secondary to COVID-19 infection, borderline blood pressure 2. HFpEF 3. COVID 19 +ve 4. CKD3b 5. HTN w/ CKD3b 6. Anemia w/ CKD3b Plan: -Scr currently 2.12, bl~1.2-1.5, non oliguric, BP stable -Hold acei. -Urine studies requested. -Bladder scan x1 for pvr, place child for >200cc -Avoid nephrotoxins and contrast dye -We will discontinue amlodipine also for now. Would prefer for the patient to have systolic blood pressure more than 120 for better renal perfusion. -Continue metoprolol and isosorbide. Might consider discontinuing them also depending on blood pressure. We will add holding parameters. -Strict intake/output charting. -Daily standing weight. -Okay to use IV Lasix in the setting of hypoxic respiratory failure, shortness of breath. -Daily standing weight. If increasing, resume torsemide. Would hold on resuming Aldactone for now. -We will follow closely with you Javier Benton [place] [facility] Associated Order(s): IP CONSULT TO CARDIOLOGY [facility] [place] [facility]/ Electrophysiology Consult Note Reason for Consult/Chief Complaint: Chest pain History of Present Illness: Shannon Dickerson is a 67 y.o. male with known complex coronary artery disease presents with an episode of rest pain. He just saw in office his construction foreman Dr. Gonzales 12/03/2022. Patient has history of coronary artery disease status post multiple percutaneous revascularizations and a chronically occluded right coronary artery. On catheterization/intervention 1 year ago attempts were made to open the right coronary artery these proved unsuccessful. He has been managed with medical therapy. He reports not having any more than his baseline angina recently. Usually is a chest tightness which will resolve with rest. This episode occurred as he was getting from sleeping. There had not been any previous strenuous activity. Things did not improve with nitroglycerin. He presented to [facility]. While there high-sensitivity troponin was at 174 then 175 with the upper limit of normal being 80. He was then sent to [facility] for further evaluation. Presently he is pain-free. He denies any recent fevers and chills. His weight has been stable. He is in process of treating his sleep apnea. He is compliant with his medical therapy. Past Medical History: Past Medical History: Diagnosis Date Angina pectoris ([facility]) Anxiety Arrhythmia A-fib Asthma CAD (coronary artery disease) Cerebral artery occlusion with cerebral infarction ([facility]) COPD (chronic obstructive pulmonary disease) ([facility]) Depression WATTS (dyspnea on exertion) Fatigue GERD (gastroesophageal reflux disease) History of cardioversion 05/07/2016 Successful conversion of a-fib to SR History of left heart catheterization 05/07/2016 60% stenosis right posterior descending, patent stents in prox, mid & distal RCA, patent stents in med LCx. Findings unchanged from previous study. 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 drug correction current use of anticoagulant NSTEMI (non-ST elevated myocardial infarction) ([facility]) ([facility]) 12/2012 NSTEMI (non-ST elevated myocardial infarction) ([facility]) ([facility]) 05/2014 Obesity [place] (myocardial infarction) HIPOLITO (obstructive sleep apnea) HIPOLITO on CPAP PAF (paroxysmal atrial fibrillation) ([facility]) ([facility]) Rheumatoid arthritis(714.0) ([facility]) ST segment elevation myocardial infarction (STEMI) of anterolateral wall, subsequent episode of care ([facility]) ([facility]) TIA (transient ischemic attack) Past Surgical History: Past Surgical History: Procedure Laterality Date CAPSULOTOMY, HAND 05/07/2016 CARDIAC PROCEDURE Left 05/2015 CARDIAC PROCEDURE Left 06/03/2017 CARDIAC PROCEDURE Bilateral 01/2010 CARDIAC PROCEDURE Left 09/05/2019 PCI to distal RCA and PL branch CHOLECYSTECTOMY 10/30/2019 CORONARY ANGIOPLASTY WITH STENT PLACEMENT Left 11/2006 restent RCA, FLAKO to CX CORONARY ANGIOPLASTY WITH STENT PLACEMENT Left 05/2014 PTCA /cuttung balloon to instent restenosis RCA CORONARY ANGIOPLASTY WITH STENT PLACEMENT Left 10/2006 DESto prox Rt PAV, mid & dist RCA CORONARY ANGIOPLASTY WITH STENT PLACEMENT Left 11/2014 FLAKO to RCA CORONARY ANGIOPLASTY WITH STENT PLACEMENT Left 10/2007 FLAKO to Prox Rt PAV, mid-dist RCA CORONARY ANGIOPLASTY WITH STENT PLACEMENT Left 03/2009 FLAKO to mid RCA CORONARY ANGIOPLASTY WITH STENT PLACEMENT Left 12/01/2021 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/PCI to prox RCA CORONARY ANGIOPLASTY WITH STENT PLACEMENT Left 10/2013 FLAKO to prox & mid RCA CORONARY ANGIOPLASTY WITH STENT PLACEMENT Left 12/2007 FLAKO to LAD CORONARY ANGIOPLASTY WITH STENT PLACEMENT Bilateral 03/17/2021 Flako to the Mid RCA, and the Distal RCA CORONARY ANGIOPLASTY WITH STENT PLACEMENT Left 12/2012 FLAKO to mid RCA & prox-mid Rt GRACE JOINT REPLACEMENT 03/2019 TOTAL HIP ARTHROPLASTY Left 12/2012 Family History: Family History Problem Relation Name Age of Onset Diabetes Paternal Grandmother Diabetes Maternal Grandfather Cancer Sister Hypertension Mother Diabetes Sister Diabetes Paternal Grandfather Heart disease Paternal Grandmother Heart disease Paternal Grandfather Cancer Father Diabetes Brother Social History: Social History Tobacco Use Smoking status: Never Smokeless tobacco: Never Substance Use Topics Alcohol use: Not Currently Drug use: No Medications: amiodarone, 200 mg, Oral, Daily amLODIPine, 10 mg, Oral, Daily apixaban, 5 mg, Oral, BID aspirin, 81 mg, Oral, Daily atorvastatin, 80 mg, Oral, Daily cholecalciferol, 800 Units, Oral, Daily clopidogrel, 75 mg, Oral, Daily isosorbide mononitrate ER, 60 mg, Oral, Daily lisinopril, 20 mg, Oral, Daily metoprolol tartrate, 50 mg, Oral, BID minoxidil, 5 mg, Oral, BID sodium chloride 0.9%, 5-40 mL, IntraVENous, q12h spironolactone, 25 mg, Oral, BID torsemide, 10 mg, Oral, Daily Allergies: Penicillins Reviewed Review of Systems: Review of Systems Constitutional: Positive for activity change. Respiratory: Positive for chest tightness and shortness of breath. Cardiovascular: Positive for chest pain. Negative for leg swelling. Musculoskeletal: Negative for arthralgias. Neurological: Negative for dizziness, syncope and light-headedness. Physical Examination: Vitals: Blood pressure (!) 157/88, pulse 85, temperature 37.2 C (99 F), temperature source Temporal, resp. rate 18, SpO2 97 %. @IODETAILS@ @[id number]@ Physical Exam Laboratory Tests: @[id number](WBC:5,HGB:5,HCT:5,M CV:5,PLT:5)@ Lab Results Component Value Date GLUCOSE 82 12/03/2022 CALCIUM 9.4 12/03/2022 NA 139 12/03/2022 K 4.4 12/03/2022 CO2 25 12/03/2022 CL 105 12/03/2022 BUN 29 (H) 12/03/2022 CREATININE 1.39 (H) 12/03/2022 No results found for: HGBA1C Lab Results Component Value Date TSH 1.571 10/29/2022 No results found for: CHOL Lab Results Component Value Date HDL 49 08/05/2021 HDL 50 06/07/2019 Lab Results Component Value Date LDLCALC 69 08/05/2021 LDLCALC 85 06/07/2019 Lab Results Component Value Date TRIG 132 08/05/2021 TRIG 98 06/07/2019 No results found for: CHOLHDL No components found for: NTPROBNP Lab Results Component Value Date TROPONINI <0.012 12/06/2022 No components found for: LVEF, LVEFMODE Radiology: CXR: personally reviewed: Cardiac Tests: ECG: Done - sinus rhythm likely old inferior infarction no active ischemic change Assessment/Plan Pleasant 67-year-old gentleman presents with somewhat atypical chest pain in the setting of known significant coronary artery disease and angina. High-sensitivity troponin slightly elevated from an outside hospital. I am unsure of the significance of that lab value. We will cycle troponins here, keep him on Plavix and apixaban and continue antianginals. He will naturally continue his beta-delia 50 mg twice daily. Further recs dependent upon troponin Atrial fibrillation: He maintains amiodarone 200 mg daily and the apixaban. He does not believe the episode this morning was secondary to transient arrhythmia. We will follow on telemetry. Congestive failure: Volume status to me seems reasonable as it was in the office with Dr. Gonzales just a few days ago. Continue home diuretics. Satish Rascon MD DATE of SERVICE: 12/06/2022 documented in this encounter [facility] 12-07-2022 History of Present illness Narrative Images from the original note were not included. [facility]- PULMONARY AND SLEEP MEDICINE ESTABLISHED PATIENT VISIT 12/07/2022 CHIEF COMPLAINT/REASON FOR REFERRAL: Chief Complaint Patient presents with Sleep Apnea Results Patient was seen today via Telehealth by agreement and consent in light of the current COVID-19 pandemic. I used the following Telehealth technology: Audio capability only. Total length of call 11 minutes. The patient was offered and advised video for a more comprehensive evaluation, but the patient declined or was unable to use video. Patient location: Inpatient hospital. This patient encounter is appropriate and reasonable under the circumstances given the patient's particular presentation at this time. The patient has been advised of the potential risks and limitations of this mode of treatment (including but not limited to the absence of in-person examination) and has agreed to be treated in a remote fashion in spite of them. Any and all of the patient's/patient's family's questions on this issue have been answered and I have made no promises or guarantees to the patient. The patient has also been advised to contact this office for worsening conditions or problems, and seek emergency medical treatment and/or call 911 if the patient deems either necessary. The patient stated that they are currently in the [facility]. If the patient is a minor, permission has been obtained by the parent or guardian for the patient to receive medical care at this visit. History of Present Illness: Shannon Dickerson is a 67-year-old man with medical history notable for CAD with chronically occluded RCA, atrial fibrillation treated with amiodarone, and prior diagnosis of obstructive sleep apnea. Last saw the patient on 11/11/2022 mainly for obstructive sleep apnea reevaluation. He had been without his CPAP device for over a year and reported sleep quality was much with his CPAP. He has since undergone split-night sleep study. Purpose of today's phone call was mainly to review results of sleep study and plan treatment. He continues to report similar sleep difficulties with frequent arousals and nocturia. He is actually in the hospital right now in the [facility] and he says he had a heart attack Wednesday night. Currently tested positive for SARS-CoV-2. Reports coughing quite a bit. He is undergoing evaluation for renal dysfunction and further cardiac work-up. Assessment and Plan: Obstructive sleep apnea Excessive daytime sleepiness Coronary artery disease Chronic HFpEF Atrial fibrillation Reviewed results of sleep study in detail with the patient -full report available below. Discussed severity of HIPOLITO with AHI 49/h and significant hypoxemia with bhakti of 71% and 29% of sleep time with SPO2 less than 89%. Discussed results of the titration portion no with CPAP being ineffective requiring usage of bilevel PAP but with treatment emergent centrals at higher pressures. Discussed optimal settings of 16/10 cm H2O and spontaneous mode. Patient reported no issues with the mask used during the sleep study and said he tolerated the BiPAP pressures well. Prescription for bilevel PAP and spontaneous mode with IPAP 16, EPAP 10 cm H2O sent to [facility] Patient counseled on importance of adherence to PAP therapy Follow-up already scheduled for 02/24/2023 at which point we will review device download No orders of the defined types were placed in this encounter. Sy Boyce MD Pulmonary, Critical Care, and Sleep Medicine Portions of the information within this encounter were entered using an electronic dictation system. Best attempts were made to edit/proofread the information prior to note completion. Despite the review of information, some errors may remain. If there are questions related to the information contained within the note please contact the signing physician directly. PastMedical History Past Medical History: Diagnosis Date Angina pectoris ([facility]) Anxiety Arrhythmia A-fib Asthma CAD (coronary artery disease) Cerebral artery occlusion with cerebral infarction ([facility]) COPD (chronic obstructive pulmonary disease) ([facility]) Depression WATTS (dyspnea on exertion) Fatigue GERD (gastroesophageal reflux disease) History of cardioversion 05/07/2016 Successful conversion of a-fib to SR History of left heart catheterization 05/07/2016 60% stenosis right posterior descending, patent stents in prox, mid & distal RCA, patent stents in med LCx. Findings unchanged from previous study. 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 NSTEMI (non-ST elevated myocardial infarction) ([facility]) ([facility]) 12/2012 NSTEMI (non-ST elevated myocardial infarction) ([facility]) ([facility]) 05/2014 Obesity [place] (myocardial infarction) HIPOLITO (obstructive sleep apnea) HIPOLITO on CPAP PAF (paroxysmal atrial fibrillation) ([facility]) ([facility]) Rheumatoid arthritis(714.0) ([facility]) ST segment elevation myocardial infarction (STEMI) of anterolateral wall, subsequent episode of care ([facility]) ([facility]) TIA (transient ischemic attack) Past Surgical History Past Surgical History: Procedure Laterality Date CAPSULOTOMY, HAND 05/07/2016 CARDIAC PROCEDURE Left 05/2015 CARDIAC PROCEDURE Left 06/03/2017 CARDIAC PROCEDURE Bilateral 01/2010 CARDIAC PROCEDURE Left 09/05/2019 PCI to distal RCA and PL branch CHOLECYSTECTOMY 10/30/2019 CORONARY ANGIOPLASTY WITH STENT PLACEMENT Left 11/2006 restent RCA, FLAKO to CX CORONARY ANGIOPLASTY WITH STENT PLACEMENT Left 05/2014 PTCA /cuttung balloon to instent restenosis RCA CORONARY ANGIOPLASTY WITH STENT PLACEMENT Left 10/2006 DESto prox Rt PAV, mid & dist RCA CORONARY ANGIOPLASTY WITH STENT PLACEMENT Left 11/2014 FLAKO to RCA CORONARY ANGIOPLASTY WITH STENT PLACEMENT Left 10/2007 FLAKO to Prox Rt PAV, mid-dist RCA CORONARY ANGIOPLASTY WITH STENT PLACEMENT Left 03/2009 FLAKO to mid RCA CORONARY ANGIOPLASTY WITH STENT PLACEMENT Left 12/01/2021 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/PCI to prox RCA CORONARY ANGIOPLASTY WITH STENT PLACEMENT Left 10/2013 FLAKO to prox & mid RCA CORONARY ANGIOPLASTY WITH STENT PLACEMENT Left 12/2007 FLAKO to LAD CORONARY ANGIOPLASTY WITH STENT PLACEMENT Bilateral 03/17/2021 Flako to the Mid RCA, and the Distal RCA CORONARY ANGIOPLASTY WITH STENT PLACEMENT Left 12/2012 FLAKO to mid RCA & prox-mid Rt GRACE JOINT REPLACEMENT 03/2019 TOTAL HIP ARTHROPLASTY Left 12/2012 Allergies Allergies Allergen Reactions Penicillins Rash Medications No current facility-administered medications for this visit. No current outpatient medications on file. Facility-Administered Medications Ordered in Other Visits: acetaminophen (Tylenol) tablet 650 mg, 650 mg, Oral, q6h PRN, 650 mg at 12/06/22 1758 OR acetaminophen (Tylenol) suppository 650 mg, 650 mg, Rectal, q6h PRN, Serena Drew MD amiodarone (Pacerone) tablet 200 mg, 200 mg, Oral, Daily, Serena Drew MD, 200 mg at 12/07/22901 amLODIPine (Norvasc) tablet 10 mg, 10 mg, Oral, Daily, Serena Drew MD, 10 mg at 12/07/22901 apixaban (Eliquis) tablet 5 mg, 5 mg, Oral, BID, Serena Drew MD, 5 mg at 12/07/22901 aspirin chewable tablet 81 mg, 81 mg, Oral, Daily, Serena Drew MD, 81 mg at 12/07/22901 atorvastatin (Lipitor) tablet 80 mg, 80 mg, Oral, Daily, Serena Drew MD, 80 mg at 12/06/222009 benzonatate (Tessalon) capsule 100 mg, 100 mg, Oral, TID PRN, Serena Drew MD, 100 mg at 12/06/222011 cholecalciferol (Vitamin D-3) tablet 800 Units, 800 Units, Oral, Daily, Serena Drew MD, 800 Units at 12/07/22901 clopidogrel (Plavix) tablet 75 mg, 75 mg, Oral, Daily, Serena Drew MD, 75 mg at 12/07/22901 ipratropium-albuterol (Duo-Neb) 0.5-2.5 mg/3 mL nebulizer solution 3 mL, 3 mL, Nebulization, q4h PRN, Ashley Edgar MD isosorbide mononitrate ER (Imdur) 24 hr tablet 60 mg, 60 mg, Oral, Daily, Serena Drew MD, 60 mg at 12/07/22901 metoprolol tartrate (Lopressor) tablet 50 mg, 50 mg, Oral, BID, Ashley Edgar MD, 50 mg at 12/07/22901 minoxidil (Loniten) tablet 5 mg, 5 mg, Oral, BID, Serena Drew MD, 5 mg at 12/07/22901 nitroglycerin (Nitrostat) SL tablet 0.4 mg, 0.4 mg, SubLINGual, q5 min PRN, Serena Drew MD ondansetron ODT (Zofran-ODT) disintegrating tablet 4 mg, 4 mg, Oral, q8h PRN OR ondansetron (Zofran) injection 4 mg, 4 mg, IntraVENous, q6h PRN, Serena Drew MD polyethylene glycol (PEG) 3350 (Miralax) packet 17 g, 17 g, Oral, Daily PRN, Serena Drew MD sodium chloride 0.9 % infusion, 5-250 mL/hr, IntraVENous, PRN, Serena Drew MD sodium chloride 0.9% (NS) flush 5-40 mL, 5-40 mL, IntraVENous, q12h, Serena Drew MD, 10 mL at 12/07/22903 sodium chloride 0.9% (NS) flush 5-40 mL, 5-40 mL, IntraVENous, PRN, Serena Drew MD [Held by provider] spironolactone (Aldactone) tablet 25 mg, 25 mg, Oral, BID, Serena Drew MD, 25 mg at 12/06/222009 [Held by provider] torsemide (Demadex) tablet 10 mg, 10 mg, Oral, Daily, Serena Drew MD, 10 mg at 12/06/22 1101 Social History Social History Socioeconomic History Marital status: Legally Spouse name: Not on file Number of children: Not on file Years of education: Not on file Highest education level: Not on file Occupational History Not on file Tobacco Use Smoking status: Never Smokeless tobacco: Never Substance and Sexual Activity Alcohol use: Not Currently Drug use: No Sexual activity: Not on file Other Topics Concern Not on file Social History Narrative Not on file Social Determinants of Health Financial Resource Strain: Not on file Food Insecurity: Not on file Transportation Needs: Not on file Physical Activity: Not on file Stress: Not on file Social Connections: Not on file Intimate Partner Violence: Not At Risk (12/06/2022) Humiliation, Afraid, Rape, and Kick questionnaire Fear of Current or Ex-Partner: No Emotionally Abused: No Physically Abused: No Sexually Abused: No Housing Stability: Not on file FamilyHistory Family History Problem Relation Name Age of Onset Diabetes Paternal Grandmother Diabetes Maternal Grandfather Cancer Sister Hypertension Mother Diabetes Sister Diabetes Paternal Grandfather Heart disease Paternal Grandmother Heart disease Paternal Grandfather Cancer Father Diabetes Brother Review of Systems Review of Systems Constitutional: Positive for fatigue. Respiratory: Positive for cough and shortness of breath. Cardiovascular: Positive for chest pain. All other systems reviewed and are negative. Physical Exam Telephone visit LABS and Studies: Available studies were personally reviewed. Salient findings summarized in HPI & A/P Imaging: CXR portable:No results found for this or any previous visit. CXR (2V): No results found for this or any previous visit. CT Chest: No results found for this or any previous visit. CTA Chest: No results found for this or any previous visit. Other Studies: Reviewed and as per electronic record. CxR/CT images personally reviewed by me when available; salient findings summarized in A/P. documented in this encounter [facility] 12-07-2022 Note Hospitalist Progress Note 12/07/2022 8:21 AM [id number]: Please page me for patient care issues. [phone]: Please page [facility] night Hospitalist for any issues. Subjective: Admit Date: 12/06/2022 PCP: Elizabeth Logan MD Room#: 1C-131/1C-131 A Interval History: Patient seen and examined 67-year-old male past medical history of obesity, obstructive sleep apnea-due to get new BiPAP machine, CAD with multiple stent, atrial fibrillation anticoagulation, CVA, COPD not on home oxygen, history of heart failure with preserved ejection fraction, echo from September 2022 reviewed showed EF of 55%, no valve disease, depression, GERD, hypertension, hyperlipidemia, chronic kidney disease stage III with baseline creatinine of 1.5 Presented to [facility] following chest pain. Patient was complaining of dry cough for last 3 days Denies any sputum, nausea, vomiting He is usually short of breath on exertion due to underlying history of COPD Fever spike of 101.3 noted yesterday No fever today Patient sitting up in chair comfortably, denies any chest pain today Potassium 4.8, creatinine 2.1, LFT panel normal Cholesterol 251, LDL 169, triglyceride 227, hemoglobin 11.9 High sensitive troponin done at [facility] was 175 Past medical history : Past Medical History: Diagnosis Date Angina pectoris ([facility]) Anxiety Arrhythmia A-fib Asthma CAD (coronary artery disease) Cerebral artery occlusion with cerebral infarction ([facility]) COPD (chronic obstructive pulmonary disease) ([facility]) Depression WATTS (dyspnea on exertion) Fatigue GERD (gastroesophageal reflux disease) History of cardioversion 05/07/2016 Successful conversion of a-fib to SR History of left heart catheterization 05/07/2016 60% stenosis right posterior descending, patent stents in prox, mid & distal RCA, patent stents in med LCx. Findings unchanged from previous study. 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 drug correction current use of anticoagulant NSTEMI (non-ST elevated myocardial infarction) ([facility]) ([facility]) 12/2012 NSTEMI (non-ST elevated myocardial infarction) ([facility]) ([facility]) 05/2014 Obesity [place] (myocardial infarction) HIPOLITO (obstructive sleep apnea) HIPOLITO on CPAP PAF (paroxysmal atrial fibrillation) ([facility]) ([facility]) Rheumatoid arthritis(714.0) ([facility]) ST segment elevation myocardial infarction (STEMI) of anterolateral wall, subsequent episode of care ([facility]) ([facility]) TIA (transient ischemic attack) Adult diet Regular; No Added Salt (3-4 gm) @[id number]@ Medications: amiodarone, 200 mg, Oral, Daily amLODIPine, 10 mg, Oral, Daily apixaban, 5 mg, Oral, BID aspirin, 81 mg, Oral, Daily atorvastatin, 80 mg, Oral, Daily cholecalciferol, 800 Units, Oral, Daily clopidogrel, 75 mg, Oral, Daily isosorbide mononitrate ER, 60 mg, Oral, Daily metoprolol tartrate, 50 mg, Oral, BID minoxidil, 5 mg, Oral, BID sodium chloride 0.9%, 5-40 mL, IntraVENous, q12h [Held by provider] spironolactone, 25 mg, Oral, BID [Held by provider] torsemide, 10 mg, Oral, Daily LABS: CBC: Recent Labs 12/07/22 0018 WBC 9.4 RBC 3.95* HGB 11.9* HCT 34.9* MCV 88.2 RDW 15.1* PLT 213 BMP: Recent Labs 12/07/22 0018 NA 137 K 4.8 CL 106 CO2 24 BUN 36* CREATININE 2.12* GLUCOSE 104* CALCIUM 8.6 ANIONGAP 7 LIVER PROFILE: Recent Labs 12/07/22 0018 AST 30 ALT 39 BILITOT 1.2 ALKPHOS 76 PROT 7.2 PT/INR: No results for input(s): PROTIME, INR in the last 72 hours. CARDIAC ENZYMES: Recent Labs 12/06/22 1057 TROPONINI <0.012 Procalcitonin: No results found for: PROCAL ECG 12 lead Result Date: 12/06/2022 Impression: Sinus rhythm 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, old I reviewed: [x] laboratory results [x] radiographic results At the time of today's encounter. Pt was informed about the results. Objective: Vitals: BP 115/56 Pulse 86 Temp 36.4 ?C (97.5 ?F) (Temporal) Resp 19 Wt (!) 310 lb 14.4 oz (141 kg) SpO2 98% BMI 39.92 kg/m? Pulse Ox: SpO2 Av % Min: 94 % Max: 98 % Supplemental O2: General appearance: No apparent distress, HEENT: Eyes: No scleral icterus No pallor Obese male Oral: Tongue is semi-moist Cardiovascular: S1S2 heard, no gallop Respiratory: Clear to auscultation bilaterally anteriorly Decrease breath sound both bases posteriorly Abdomen: Soft, non-tender, non-distended with normal bowel sounds, limited exam since patient sitting up in chair Musculoskeletal: No obvious deformities seen Neurology- no focal neurology,Awake alert Extremity- mild peripheral edema both lower extremities Assessment Acute problems-- Chest pain, elevated troponin, history of CAD with multiple stent for further evaluation Cough, fever rule out pneumonia, rule out COVID Acute kidney injury on chronic kidney disease, baseline stage III Hy (more content not included)... [facility] 12-07-2022 Plan of care note Consult noted. Full note to follow. Thank you Javier Benton [facility] 12-07-2022 Hospital Discharge instructions Ashley Edgar MD - 12/07/2022 8:08 AM EDT As tolerated Ashley Edgar MD - 12/07/2022 8:08 AM EDT Cardiac diet documented in this encounter [facility] 12-06-2022 Note History and Physical Admit Date: 12/06/2022 PCP: Elizabeth Logan MD CHIEF COMPLAINT: Chest pain HISTORY OF PRESENT ILLNESS: The patient is a 67 y.o. male with a past medical history significant for known coronary artery disease presents from an outside emergency room with chest pain. He reports he was in his usual state of health he does have some baseline dyspnea on exertion. However, he developed worsening chest pain was seen at the [place] [facility] found to have elevated troponins now transferred to [facility]. Currently patient has no chest pain. Past Medical History: Past Medical History: Diagnosis Date Angina pectoris ([facility]) Anxiety Arrhythmia A-fib Asthma CAD (coronary artery disease) Cerebral artery occlusion with cerebral infarction ([facility]) COPD (chronic obstructive pulmonary disease) ([facility]) Depression WATTS (dyspnea on exertion) Fatigue GERD (gastroesophageal reflux disease) History of cardioversion 05/07/2016 Successful conversion of a-fib to SR History of left heart catheterization 05/07/2016 60% stenosis right posterior descending, patent stents in prox, mid & distal RCA, patent stents in med LCx. Findings unchanged from previous study. 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 NSTEMI (non-ST elevated myocardial infarction) ([facility]) ([facility]) 12/2012 NSTEMI (non-ST elevated myocardial infarction) ([facility]) ([facility]) 05/2014 Obesity [place] (myocardial infarction) HIPOLITO (obstructive sleep apnea) HIPOLITO on CPAP PAF (paroxysmal atrial fibrillation) ([facility]) ([facility]) Rheumatoid arthritis(714.0) ([facility]) ST segment elevation myocardial infarction (STEMI) of anterolateral wall, subsequent episode of care ([facility]) ([facility]) TIA (transient ischemic attack) Past Surgical History: Past Surgical History: Procedure Laterality Date CAPSULOTOMY, HAND 05/07/2016 CARDIAC PROCEDURE Left 05/2015 CARDIAC PROCEDURE Left 06/03/2017 CARDIAC PROCEDURE Bilateral 01/2010 CARDIAC PROCEDURE Left 09/05/2019 PCI to distal RCA and PL branch CHOLECYSTECTOMY 10/30/2019 CORONARY ANGIOPLASTY WITH STENT PLACEMENT Left 11/2006 restent RCA, FLAKO to CX CORONARY ANGIOPLASTY WITH STENT PLACEMENT Left 05/2014 PTCA /cuttung balloon to instent restenosis RCA CORONARY ANGIOPLASTY WITH STENT PLACEMENT Left 10/2006 DESto prox Rt PAV, mid & dist RCA CORONARY ANGIOPLASTY WITH STENT PLACEMENT Left 11/2014 FLAKO to RCA CORONARY ANGIOPLASTY WITH STENT PLACEMENT Left 10/2007 FLAKO to Prox Rt PAV, mid-dist RCA CORONARY ANGIOPLASTY WITH STENT PLACEMENT Left 03/2009 FLAKO to mid RCA CORONARY ANGIOPLASTY WITH STENT PLACEMENT Left 12/01/2021 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/PCI to prox RCA CORONARY ANGIOPLASTY WITH STENT PLACEMENT Left 10/2013 FLAKO to prox & mid RCA CORONARY ANGIOPLASTY WITH STENT PLACEMENT Left 12/2007 FLAKO to LAD CORONARY ANGIOPLASTY WITH STENT PLACEMENT Bilateral 03/17/2021 Flako to the Mid RCA, and the Distal RCA CORONARY ANGIOPLASTY WITH STENT PLACEMENT Left 12/2012 FLAKO to mid RCA & prox-mid Rt GRACE JOINT REPLACEMENT 03/2019 TOTAL HIP ARTHROPLASTY Left 12/2012 Social History: Social History Socioeconomic History Marital status: Legally Spouse name: Not on file Number of children: Not on file Years of education: Not on file Highest education level: Not on file Occupational History Not on file Tobacco Use Smoking status: Never Smokeless tobacco: Never Substance and Sexual Activity Alcohol use: Not Currently Drug use: No Sexual activity: Not on file Other Topics Concern Not on file Social History Narrative Not on file Social Determinants of Health Financial Resource Strain: Not on file Food Insecurity: Not on file Transportation Needs: Not on file Physical Activity: Not on file Stress: Not on file Social Connections: Not on file Intimate Partner Violence: Not on file Housing Stability: Not on file Family History: Family History Problem Relation Name Age of Onset Diabetes Paternal Grandmother Diabetes Maternal Grandfather Cancer Sister Hypertension Mother Diabetes Sister Diabetes Paternal Grandfather Heart disease Paternal Grandmother Heart disease Paternal Grandfather Cancer Father Diabetes Brother Medications Prior to Admission: No current facility-administered medications on file prior to encounter. Current Outpatient Medications on File Prior to Encounter Medication Sig Dispense Refill amiodarone (Pacerone) 200 MG tablet Take 1 tablet by mouth daily. amLODIPine (Norvasc) 10 MG tablet Take 1 tablet by mouth daily. apixaban (Eliquis) 5 MG tablet Take 1 tablet by mouth 2 times daily. atorvastatin (Lipitor) 80 MG tablet Take 1 tablet by mouth daily. cholecalciferol (Vitamin D-3) 20 MCG (800 UNIT) tablet Take 800 Units by mouth daily. clopidogrel (Plavix) 75 MG tablet Take 1 tablet by mouth daily. is (more content not included)... [facility] 12-06-2022 Consult note Associated Order (s): IP CONSULT TO CARDIOLOGY [facility] [place] [facility]/ Electrophysiology Consult Note Reason for Consult/Chief Complaint: Chest pain History of Present Illness: Shannon Dickerson is a 67 y.o. male with known complex coronary artery disease presents with an episode of rest pain. He just saw in office his construction foreman Dr. Gonzales 12/03/2022. Patient has history of coronary artery disease status post multiple percutaneous revascularizations and a chronically occluded right coronary artery. On catheterization/intervention 1 year ago attempts were made to open the right coronary artery these proved unsuccessful. He has been managed with medical therapy. He reports not having any more than his baseline angina recently. Usually is a chest tightness which will resolve with rest. This episode occurred as he was getting from sleeping. There had not been any previous strenuous activity. Things did not improve with nitroglycerin. He presented to [facility]. While there high-sensitivity troponin was at 174 then 175 with the upper limit of normal being 80. He was then sent to [facility] for further evaluation. Presently he is pain-free. He denies any recent fevers and chills. His weight has been stable. He is in process of treating his sleep apnea. He is compliant with his medical therapy. Past Medical History: Past Medical History: Diagnosis Date Angina pectoris ([facility]) Anxiety Arrhythmia A-fib Asthma CAD (coronary artery disease) Cerebral artery occlusion with cerebral infarction ([facility]) COPD (chronic obstructive pulmonary disease) ([facility]) Depression WATTS (dyspnea on exertion) Fatigue GERD (gastroesophageal reflux disease) History of cardioversion 05/07/2016 Successful conversion of a-fib to SR History of left heart catheterization 05/07/2016 60% stenosis right posterior descending, patent stents in prox, mid & distal RCA, patent stents in med LCx. Findings unchanged from previous study. 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 NSTEMI (non-ST elevated myocardial infarction) ([facility]) ([facility]) 12/2012 NSTEMI (non-ST elevated myocardial infarction) ([facility]) ([facility]) 05/2014 Obesity [place] (myocardial infarction) HIPOLITO (obstructive sleep apnea) HIPOLITO on CPAP PAF (paroxysmal atrial fibrillation) ([facility]) ([facility]) Rheumatoid arthritis(714.0) ([facility]) ST segment elevation myocardial infarction (STEMI) of anterolateral wall, subsequent episode of care ([facility]) ([facility]) TIA (transient ischemic attack) Past Surgical History: Past Surgical History: Procedure Laterality Date CAPSULOTOMY, HAND 05/07/2016 CARDIAC PROCEDURE Left 05/2015 CARDIAC PROCEDURE Left 06/03/2017 CARDIAC PROCEDURE Bilateral 01/2010 CARDIAC PROCEDURE Left 09/05/2019 PCI to distal RCA and PL branch CHOLECYSTECTOMY 10/30/2019 CORONARY ANGIOPLASTY WITH STENT PLACEMENT Left 11/2006 restent RCA, FLAKO to CX CORONARY ANGIOPLASTY WITH STENT PLACEMENT Left 05/2014 PTCA /cuttung balloon to instent restenosis RCA CORONARY ANGIOPLASTY WITH STENT PLACEMENT Left 10/2006 DESto prox Rt PAV, mid & dist RCA CORONARY ANGIOPLASTY WITH STENT PLACEMENT Left 11/2014 FLAKO to RCA CORONARY ANGIOPLASTY WITH STENT PLACEMENT Left 10/2007 FLAKO to Prox Rt PAV, mid-dist RCA CORONARY ANGIOPLASTY WITH STENT PLACEMENT Left 03/2009 FLAKO to mid RCA CORONARY ANGIOPLASTY WITH STENT PLACEMENT Left 12/01/2021 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/PCI to prox RCA CORONARY ANGIOPLASTY WITH STENT PLACEMENT Left 10/2013 FLAKO to prox & mid RCA CORONARY ANGIOPLASTY WITH STENT PLACEMENT Left 12/2007 FLAKO to LAD CORONARY ANGIOPLASTY WITH STENT PLACEMENT Bilateral 03/17/2021 Flako to the Mid RCA, and the Distal RCA CORONARY ANGIOPLASTY WITH STENT PLACEMENT Left 12/2012 FLAKO to mid RCA & prox-mid Rt GRACE JOINT REPLACEMENT 03/2019 TOTAL HIP ARTHROPLASTY Left 12/2012 Family History: Family History Problem Relation Name Age of Onset Diabetes Paternal Grandmother Diabetes Maternal Grandfather Cancer Sister Hypertension Mother Diabetes Sister Diabetes Paternal Grandfather Heart disease Paternal Grandmother Heart disease Paternal Grandfather Cancer Father Diabetes Brother Social History: Social History Tobacco Use Smoking status: Never Smokeless tobacco: Never Substance Use Topics Alcohol use: Not Currently Drug use: No Medications: amiodarone, 200 mg, Oral, Daily amLODIPine, 10 mg, Oral, Daily apixaban, 5 mg, Oral, BID aspirin, 81 mg, Oral, Daily atorvastatin, 80 mg, Oral, Daily cholecalciferol, 800 Units, Oral, Daily clopidogrel, 75 mg, Oral, Daily isosorbide mononitrate ER, 60 mg, Oral, Daily lisinopril, 20 mg, Oral, Daily metoprolol tartrate, 50 mg, Oral, BID minoxidil, 5 mg, Oral, BID sodium chloride 0.9%, 5-40 mL, IntraVENous, q12h spironolactone, 25 mg, Oral, BID torsemide, 10 mg, Oral, Daily Allergies: Penicillins Reviewed Review of Systems: Review of Systems Constitutional: Positive for activity change. Respiratory: Positive for chest tightness and shortness of breath. Cardiovascular: Positive for chest pain. Negative for leg swelling. Musculoskeletal: Negative for arthralgias. Neurological: Negative for dizziness, syncope and light-headedness. Physical Examination: Vitals: Blood pressure (!) 157/88, pulse 85, temperature 37.2 C (99 F), temperature source Temporal, resp. rate 18, SpO2 97 %. @IODETAILS@ @[id number]@ Physical Exam Laboratory Tests: @[id number](WBC:5,HGB:5,HCT:5,M CV:5,PLT:5)@ Lab Results Component Value Date GLUCOSE 82 12/03/2022 CALCIUM 9.4 12/03/2022 NA 139 12/03/2022 K 4.4 12/03/2022 CO2 25 12/03/2022 CL 105 12/03/2022 BUN 29 (H) 12/03/2022 CREATININE 1.39 (H) 12/03/2022 No results found for: HGBA1C Lab Results Component Value Date TSH 1.571 10/29/2022 No results found for: CHOL Lab Results Component Value Date HDL 49 08/05/2021 HDL 50 06/07/2019 Lab Results Component Value Date LDLCALC 69 08/05/2021 LDLCALC 85 06/07/2019 Lab Results Component Value Date TRIG 132 08/05/2021 TRIG 98 06/07/2019 No results found for: CHOLHDL No components found for: NTPROBNP Lab Results Component Value Date TROPONINI <0.012 12/06/2022 No components found for: LVEF, LVEFMODE Radiology: CXR: personally reviewed: Cardiac Tests: ECG: Done - sinus rhythm likely old inferior infarction no active ischemic change Assessment/Plan Pleasant 67-year-old gentleman presents with somewhat atypical chest pain in the setting of known significant coronary artery disease and angina. High-sensitivity troponin slightly elevated from an outside hospital. I am unsure of the significance of that lab value. We will cycle troponins here, keep him on Plavix and apixaban and continue antianginals. He will naturally continue his beta-delia 50 mg twice daily. Further recs dependent upon troponin Atrial fibrillation: He maintains amiodarone 200 mg daily and the apixaban. He does not believe the episode this morning was secondary to transient arrhythmia. We will follow on telemetry. Congestive failure: Volume status to me seems reasonable as it was in the office with Dr. Gonzales just a few days ago. Continue home diuretics. Satish Rascon MD DATE of SERVICE: 12/06/2022 [employer] Phone: 12-06-2022 History and physical note Images from the original note were not included. History and Physical Admit Date: 12/06/2022 PCP: Elizabeth Logan MD CHIEF COMPLAINT: Chest pain HISTORY OF PRESENT ILLNESS: The patient is a 67 y.o. male with a past medical history significant for known coronary artery disease presents from an outside emergency room with chest pain. He reports he was in his usual state of health he does have some baseline dyspnea on exertion. However, he developed worsening chest pain was seen at the [place] ED found to have elevated troponins now transferred to [facility]. Currently patient has no chest pain. Past Medical History: Past Medical History: Diagnosis Date Angina pectoris ([facility]) Anxiety Arrhythmia A-fib Asthma CAD (coronary artery disease) Cerebral artery occlusion with cerebral infarction ([facility]) COPD (chronic obstructive pulmonary disease) ([facility]) Depression WATTS (dyspnea on exertion) Fatigue GERD (gastroesophageal reflux disease) History of cardioversion 05/07/2016 Successful conversion of a-fib to SR History of left heart catheterization 05/07/2016 60% stenosis right posterior descending, patent stents in prox, mid & distal RCA, patent stents in med LCx. Findings unchanged from previous study. 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 NSTEMI (non-ST elevated myocardial infarction) ([facility] ([facility]) 12/2012 NSTEMI (non-ST elevated myocardial infarction) ([facility]) ([facility]) 05/2014 Obesity [place] (myocardial infarction) HIPOLITO (obstructive sleep apnea) HIPOLITO on CPAP PAF (paroxysmal atrial fibrillation) ([facility]) ([facility]) Rheumatoid arthritis(714.0) ([facility]) ST segment elevation myocardial infarction (STEMI) of anterolateral wall, subsequent episode of care ([facility]) ([facility]) TIA (transient ischemic attack) Past Surgical History: Past Surgical History: Procedure Laterality Date CAPSULOTOMY, HAND 05/07/2016 CARDIAC PROCEDURE Left 05/2015 CARDIAC PROCEDURE Left 06/03/2017 CARDIAC PROCEDURE Bilateral 01/2010 CARDIAC PROCEDURE Left 09/05/2019 PCI to distal RCA and PL branch CHOLECYSTECTOMY 10/30/2019 CORONARY ANGIOPLASTY WITH STENT PLACEMENT Left 11/2006 restent RCA, FLAKO to CX CORONARY ANGIOPLASTY WITH STENT PLACEMENT Left 05/2014 PTCA /cuttung balloon to instent restenosis RCA CORONARY ANGIOPLASTY WITH STENT PLACEMENT Left 10/2006 DESto prox Rt PAV, mid & dist RCA CORONARY ANGIOPLASTY WITH STENT PLACEMENT Left 11/2014 FLAKO to RCA CORONARY ANGIOPLASTY WITH STENT PLACEMENT Left 10/2007 FLAKO to Prox Rt PAV, mid-dist RCA CORONARY ANGIOPLASTY WITH STENT PLACEMENT Left 03/2009 FLAKO to mid RCA CORONARY ANGIOPLASTY WITH STENT PLACEMENT Left 12/01/2021 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/PCI to prox RCA CORONARY ANGIOPLASTY WITH STENT PLACEMENT Left 10/2013 FLAKO to prox & mid RCA CORONARY ANGIOPLASTY WITH STENT PLACEMENT Left 12/2007 FLAKO to LAD CORONARY ANGIOPLASTY WITH STENT PLACEMENT Bilateral 03/17/2021 Flako to the Mid RCA, and the Distal RCA CORONARY ANGIOPLASTY WITH STENT PLACEMENT Left 12/2012 FLAKO to mid RCA & prox-mid Rt GRACE JOINT REPLACEMENT 03/2019 TOTAL HIP ARTHROPLASTY Left 12/2012 Social History: Social History Socioeconomic History Marital status: Legally Spouse name: Not on file Number of children: Not on file Years of education: Not on file Highest education level: Not on file Occupational History Not on file Tobacco Use Smoking status: Never Smokeless tobacco: Never Substance and Sexual Activity Alcohol use: Not Currently Drug use: No Sexual activity: Not on file Other Topics Concern Not on file Social History Narrative Not on file Social Determinants of Health Financial Resource Strain: Not on file Food Insecurity: Not on file Transportation Needs: Not on file Physical Activity: Not on file Stress: Not on file Social Connections: Not on file Intimate Partner Violence: Not on file Housing Stability: Not on file Family History: Family History Problem Relation Name Age of Onset Diabetes Paternal Grandmother Diabetes Maternal Grandfather Cancer Sister Hypertension Mother Diabetes Sister Diabetes Paternal Grandfather Heart disease Paternal Grandmother Heart disease Paternal Grandfather Cancer Father Diabetes Brother Medications Prior to Admission: No current facility-administered medications on file prior to encounter. Current Outpatient Medications on File Prior to Encounter Medication Sig Dispense Refill amiodarone (Pacerone) 200 MG tablet Take 1 tablet by mouth daily. amLODIPine (Norvasc) 10 MG tablet Take 1 tablet by mouth daily. apixaban (Eliquis) 5 MG tablet Take 1 tablet by mouth 2 times daily. atorvastatin (Lipitor) 80 MG tablet Take 1 tablet by mouth daily. cholecalciferol (Vitamin D-3) 20 MCG (800 UNIT) tablet Take 800 Units by mouth daily. clopidogrel (Plavix) 75 MG tablet Take 1 tablet by mouth daily. isosorbide mononitrate ER (Imdur) 60 MG 24 hr tablet Take 1 tablet (60 mg) by mouth daily. Do not crush or chew. 90 tablet 3 lisinopril 20 MG tablet Take 1 tablet by mouth daily. metoprolol tartrate (Lopressor) 50 MG tablet Take 1 tablet by mouth 2 times daily. minoxidil (Loniten) 10 MG tablet Take 0.5 tablets by mouth 2 times daily. nitroglycerin (Nitrostat) 0.[address] 1 tablet under the tongue every 5 minutes as needed for Chest pain. If no relief after 3 tablets, call 9-1-1 immediately. 25 tablet 3 nitroglycerin (Nitrostat) 0.[address] 1 tablet (0.4 mg) under the tongue every 5 minutes as needed for chest pain. May repeat dose every 5 minutes for up to 3 doses total. 100 tablet 11 spironolactone (Aldactone) 25 MG tablet Take 1 tablet (25 mg) by mouth 2 times daily. 180 tablet 3 torsemide (Demadex) 20 MG tablet Take 0.5 tablets (10 mg) by mouth daily. (Patient taking differently: Take 20 mg by mouth daily.) 180 tablet 3 [DISCONTINUED] Torsemide 40 MG tablet Take 20 mg by mouth 2 times daily. 40 mg twice daily for 3 days then 20mg twice daily following (Patient taking differently: Take 20 mg by mouth 2 times daily.) 120 tablet 11 [DISCONTINUED] zolpidem (Ambien) 5 MG tablet Take 1 tablet (5 mg) by mouth Once for 1 dose. Take on the night of your sleep study. 1 tablet 0 Allergies: Penicillins REVIEW OF SYSTEMS: Constitutional: Negative for fever, chills, Eyes: Negative for itching and visual disturbance. Respiratory: Positive WATTS Cardiovascular: Positive for chest pain. Gastrointestinal: Negative for nausea, vomiting, abdominal pain, diarrhea Genitourinary: Negative for dysuria, frequency and flank pain. Musculoskeletal: Negative for myalgias and joint swelling. Skin: Negative for rash. Neurological: Negative for dizziness, tremors, Hematological: Negative for adenopathy. Psychiatric/Behavioral: Negative for suicidal ideas, behavioral problems, self-injury and dysphoric mood. Vitals: BP (!) 185/83 Pulse 88 Temp 36.5 C (97.7 F) (Temporal) Resp 16 SpO2 97% Pulse Ox: SpO2 Av % Min: 97 % Max: 97 % Supplemental O2: PHYSICAL EXAM: CONSTITUTIONAL: awake, alert, cooperative, no apparent distress, and appears stated age HEENT: Normocephalic, PERRLA NECK: no JVD, no LAD HEART: RRR, LUNGS: clear to auscultation bilaterally, no wheezes, crackles, or rhonchi. ABDOMEN: soft/NT/ND, positive BS MUSCULOSKELETAL: Trace le edema, +2 pulses SKIN: intact Neuro: No obvious focal deficits DATA: No results found for this or any previous visit (from the past 24 hour(s)). Noted wbc of 15 Cr 1.5 High sens trop--174 IMPRESSION: Principal Problem: Chest pain Active Problems: Status post left heart catheterization CAD in [place] artery Class 2 obesity in adult COPD (chronic obstructive pulmonary disease) ([facility]) HIPOLITO on CPAP CAD (coronary artery disease) PAF (paroxysmal atrial fibrillation) ([facility]) ([facility]) CKD NSTEMI patient with known coronary artery disease. Holding on Lovenox for now as patient is mostly asymptomatic and already on oral anticoagulation His last cardiac catheterization was in November 2021, at that time they attempted to revascularize the mid RCA in-stent restenosis and were unsuccessful I will cycle troponins here recheck EKG Cardiology to see this patient Noted creatinine this does appear to be close to his baseline for his chronic kidney disease We will continue supportive care and home medications otherwise Due to the review of above complex data and the acute illness and/or undiagnosed new problem which may pose significant morbidity, The complexity of this case is: High -see additional orders, further recommendations to follow Orders Placed This Encounter Procedures CBC Comprehensive Metabolic Panel w/ Mg Reflex Lipid panel - fasting Troponin I NPO diet NPO except: Sips of Water with Meds Activity No Restrictions Vital Signs per unit routine Telemetry monitoring for Cardiac Ischemia (Known or Suspected) Notify physician Daily weights Intake and output Nurse to order EKG 12 lead PRN Full code Inpatient consult to Cardiology Initiate Oxygen Therapy Protocol ECG 12 lead Admit to inpatient Code status: Full Code Please forward a copy of this H&P to the patient's PCP. Thank you. Electronically signed by @BROOKS@ on @TDNR@ at @NOWNR@ [facility] [employer] 12-06-2022 History and physical note Images from the original note were not included. History and Physical Admit Date: 12/06/2022 PCP: Elizabeth Logan MD CHIEF COMPLAINT: Chest pain HISTORY OF PRESENT ILLNESS: The patient is a 67 y.o. male with a past medical history significant for known coronary artery disease presents from an outside emergency room with chest pain. He reports he was in his usual state of health he does have some baseline dyspnea on exertion. However, he developed worsening chest pain was seen at the [place] [facility] found to have elevated troponins now transferred to [facility]. Currently patient has no chest pain. Past Medical History: Past Medical History: Diagnosis Date Angina pectoris ([facility]) Anxiety Arrhythmia A-fib Asthma CAD (coronary artery disease) Cerebral artery occlusion with cerebral infarction ([facility]) COPD (chronic obstructive pulmonary disease) ([facility]) Depression WATTS (dyspnea on exertion) Fatigue GERD (gastroesophageal reflux disease) History of cardioversion 05/07/2016 Successful conversion of a-fib to SR History of left heart catheterization 05/07/2016 60% stenosis right posterior descending, patent stents in prox, mid & distal RCA, patent stents in med LCx. Findings unchanged from previous study. 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 correction current use of anticoagulant NSTEMI (non-ST elevated myocardial infarction) ([facility]) ([facility]) 12/2012 NSTEMI (non-ST elevated myocardial infarction) ([facility]) ([facility]) 05/2014 Obesity [place] (myocardial infarction) HIPOLITO (obstructive sleep apnea) HIPOLITO on CPAP PAF (paroxysmal atrial fibrillation) ([facility]) ([facility]) Rheumatoid arthritis(714.0) ([facility]) ST segment elevation myocardial infarction (STEMI) of anterolateral wall, subsequent episode of care ([facility]) ([facility]) TIA (transient ischemic attack) Past Surgical History: Past Surgical History: Procedure Laterality Date CAPSULOTOMY, HAND 05/07/2016 CARDIAC PROCEDURE Left 05/2015 CARDIAC PROCEDURE Left 06/03/2017 CARDIAC PROCEDURE Bilateral 01/2010 CARDIAC PROCEDURE Left 09/05/2019 PCI to distal RCA and PL branch CHOLECYSTECTOMY 10/30/2019 CORONARY ANGIOPLASTY WITH STENT PLACEMENT Left 11/2006 restent RCA, FLAKO to CX CORONARY ANGIOPLASTY WITH STENT PLACEMENT Left 05/2014 PTCA /cuttung balloon to instent restenosis RCA CORONARY ANGIOPLASTY WITH STENT PLACEMENT Left 10/2006 DESto prox Rt PAV, mid & dist RCA CORONARY ANGIOPLASTY WITH STENT PLACEMENT Left 11/2014 FLAKO to RCA CORONARY ANGIOPLASTY WITH STENT PLACEMENT Left 10/2007 FLAKO to Prox Rt PAV, mid-dist RCA CORONARY ANGIOPLASTY WITH STENT PLACEMENT Left 03/2009 FLAKO to mid RCA CORONARY ANGIOPLASTY WITH STENT PLACEMENT Left 12/01/2021 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/PCI to prox RCA CORONARY ANGIOPLASTY WITH STENT PLACEMENT Left 10/2013 FLAKO to prox & mid RCA CORONARY ANGIOPLASTY WITH STENT PLACEMENT Left 12/2007 FLAKO to LAD CORONARY ANGIOPLASTY WITH STENT PLACEMENT Bilateral 03/17/2021 Flako to the Mid RCA, and the Distal RCA CORONARY ANGIOPLASTY WITH STENT PLACEMENT Left 12/2012 FLAKO to mid RCA & prox-mid Rt GRACE JOINT REPLACEMENT 03/2019 TOTAL HIP ARTHROPLASTY Left 12/2012 Social History: Social History Socioeconomic History Marital status: Legally Spouse name: Not on file Number of children: Not on file Years of education: Not on file Highest education level: Not on file Occupational History Not on file Tobacco Use Smoking status: Never Smokeless tobacco: Never Substance and Sexual Activity Alcohol use: Not Currently Drug use: No Sexual activity: Not on file Other Topics Concern Not on file Social History Narrative Not on file Social Determinants of Health Financial Resource Strain: Not on file Food Insecurity: Not on file Transportation Needs: Not on file Physical Activity: Not on file Stress: Not on file Social Connections: Not on file Intimate Partner Violence: Not on file Housing Stability: Not on file Family History: Family History Problem Relation Name Age of Onset Diabetes Paternal Grandmother Diabetes Maternal Grandfather Cancer Sister Hypertension Mother Diabetes Sister Diabetes Paternal Grandfather Heart disease Paternal Grandmother Heart disease Paternal Grandfather Cancer Father Diabetes Brother Medications Prior to Admission: No current facility-administered medications on file prior to encounter. Current Outpatient Medications on File Prior to Encounter Medication Sig Dispense Refill amiodarone (Pacerone) 200 MG tablet Take 1 tablet by mouth daily. amLODIPine (Norvasc) 10 MG tablet Take 1 tablet by mouth daily. apixaban (Eliquis) 5 MG tablet Take 1 tablet by mouth 2 times daily. atorvastatin (Lipitor) 80 MG tablet Take 1 tablet by mouth daily. cholecalciferol (Vitamin D-3) 20 MCG (800 UNIT) tablet Take 800 Units by mouth daily. clopidogrel (Plavix) 75 MG tablet Take 1 tablet by mouth daily. isosorbide mononitrate ER (Imdur) 60 MG 24 hr tablet Take 1 tablet (60 mg) by mouth daily. Do not crush or chew. 90 tablet 3 lisinopril 20 MG tablet Take 1 tablet by mouth daily. metoprolol tartrate (Lopressor) 50 MG tablet Take 1 tablet by mouth 2 times daily. minoxidil (Loniten) 10 MG tablet Take 0.5 tablets by mouth 2 times daily. nitroglycerin (Nitrostat) 0.[address] 1 tablet under the tongue every 5 minutes as needed for Chest pain. If no relief after 3 tablets, call 9-1-1 immediately. 25 tablet 3 nitroglycerin (Nitrostat) 0.[address] 1 tablet (0.4 mg) under the tongue every 5 minutes as needed for chest pain. May repeat dose every 5 minutes for up to 3 doses total. 100 tablet 11 spironolactone (Aldactone) 25 MG tablet Take 1 tablet (25 mg) by mouth 2 times daily. 180 tablet 3 torsemide (Demadex) 20 MG tablet Take 0.5 tablets (10 mg) by mouth daily. (Patient taking differently: Take 20 mg by mouth daily.) 180 tablet 3 [DISCONTINUED] Torsemide 40 MG tablet Take 20 mg by mouth 2 times daily. 40 mg twice daily for 3 days then 20mg twice daily following (Patient taking differently: Take 20 mg by mouth 2 times daily.) 120 tablet 11 [DISCONTINUED] zolpidem (Ambien) 5 MG tablet Take 1 tablet (5 mg) by mouth Once for 1 dose. Take on the night of your sleep study. 1 tablet 0 Allergies: Penicillins REVIEW OF SYSTEMS: Constitutional: Negative for fever, chills, Eyes: Negative for itching and visual disturbance. Respiratory: Positive WATTS Cardiovascular: Positive for chest pain. Gastrointestinal: Negative for nausea, vomiting, abdominal pain, diarrhea Genitourinary: Negative for dysuria, frequency and flank pain. Musculoskeletal: Negative for myalgias and joint swelling. Skin: Negative for rash. Neurological: Negative for dizziness, tremors, Hematological: Negative for adenopathy. Psychiatric/Behavioral: Negative for suicidal ideas, behavioral problems, self-injury and dysphoric mood. Vitals: BP (!) 185/83 Pulse 88 Temp 36.5 C (97.7 F) (Temporal) Resp 16 SpO2 97% Pulse Ox: SpO2 Av % Min: 97 % Max: 97 % Supplemental O2: PHYSICAL EXAM: CONSTITUTIONAL: awake, alert, cooperative, no apparent distress, and appears stated age HEENT: Normocephalic, PERRLA NECK: no JVD, no LAD HEART: RRR, LUNGS: clear to auscultation bilaterally, no wheezes, crackles, or rhonchi. ABDOMEN: soft/NT/ND, positive BS MUSCULOSKELETAL: Trace le edema, +2 pulses SKIN: intact Neuro: No obvious focal deficits DATA: No results found for this or any previous visit (from the past 24 hour(s)). Noted wbc of 15 Cr 1.5 High sens trop--174 IMPRESSION: Principal Problem: Chest pain Active Problems: Status post left heart catheterization CAD in [place] artery Class 2 obesity in adult COPD (chronic obstructive pulmonary disease) ([facility]) HIPOLITO on CPAP CAD (coronary artery disease) PAF (paroxysmal atrial fibrillation) ([facility]) ([facility]) CKD NSTEMI patient with known coronary artery disease. Holding on Lovenox for now as patient is mostly asymptomatic and already on oral anticoagulation His last cardiac catheterization was in November 2021, at that time they attempted to revascularize the mid RCA in-stent restenosis and were unsuccessful I will cycle troponins here recheck EKG Cardiology to see this patient Noted creatinine this does appear to be close to his baseline for his chronic kidney disease We will continue supportive care and home medications otherwise Due to the review of above complex data and the acute illness and/or undiagnosed new problem which may pose significant morbidity, The complexity of this case is: High -see additional orders, further recommendations to follow Orders Placed This Encounter Procedures CBC Comprehensive Metabolic Panel w/ Mg Reflex Lipid panel - fasting Troponin I NPO diet NPO except: Sips of Water with Meds Activity No Restrictions Vital Signs per unit routine Telemetry monitoring for Cardiac Ischemia (Known or Suspected) Notify physician Daily weights Intake and output Nurse to order EKG 12 lead PRN Full code Inpatient consult to Cardiology Initiate Oxygen Therapy Protocol ECG 12 lead Admit to inpatient Code status: Full Code Please forward a copy of this H&P to the patient's PCP. Thank you. Electronically signed by @BROOKS@ on @TDNR@ at @NOWNR@ documented in this encounter Medication Review [employer] 12-03-2022 History of Present illness Narrative [facility] Cardiology [facility] [address] [place] [address] Dept: [phone] Dept Visit type: Established : 1955 Chief Complaint: Chief Complaint Patient presents with Follow-up History of Present Illness: Shannon Dickerson is a 67 y.o. male Today I had the opportunity to see this patient for a follow-up visit. His weight has been stable at approximately 309. His ankles have not been particularly swollen. He had an echocardiogram performed which shows preserved ventricular function with a mildly reduced EF. This is similar to his previous evaluations. He has had no significant angina. He does have continued which is a major issue although he continues to work on a regular basis. He has now been taking torsemide 40 mg twice daily as well as spironolactone 25 mg twice daily. Past Medical History: Past Medical History: Diagnosis Date Angina pectoris ([facility]) Anxiety Arrhythmia A-fib Asthma CAD (coronary artery disease) Cerebral artery occlusion with cerebral infarction ([facility]) COPD (chronic obstructive pulmonary disease) ([facility]) Depression WATTS (dyspnea on exertion) Fatigue GERD (gastroesophageal reflux disease) History of cardioversion 05/07/2016 Successful conversion of a-fib to SR History of left heart catheterization 05/07/2016 60% stenosis right posterior descending, patent stents in prox, mid & distal RCA, patent stents in med LCx. Findings unchanged from previous study. 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 NSTEMI (non-ST elevated myocardial infarction) ([facility]) ([facility]) 12/2012 NSTEMI (non-ST elevated myocardial infarction) ([facility]) ([facility]) 05/2014 Obesity [place] (myocardial infarction) HIPOLITO (obstructive sleep apnea) HIPOLITO on CPAP PAF (paroxysmal atrial fibrillation) ([facility]) ([facility]) Rheumatoid arthritis(714.0) ([facility]) ST segment elevation myocardial infarction (STEMI) of anterolateral wall, subsequent episode of care ([facility]) ([facility]) TIA (transient ischemic attack) Past Surgical History Past Surgical History: Procedure Laterality Date CAPSULOTOMY, HAND 05/07/2016 CARDIAC PROCEDURE Left 05/2015 CARDIAC PROCEDURE Left 06/03/2017 CARDIAC PROCEDURE Bilateral 01/2010 CARDIAC PROCEDURE Left 09/05/2019 PCI to distal RCA and PL branch CHOLECYSTECTOMY 10/30/2019 CORONARY ANGIOPLASTY WITH STENT PLACEMENT Left 11/2006 restent RCA, FLAKO to CX CORONARY ANGIOPLASTY WITH STENT PLACEMENT Left 05/2014 PTCA /cuttung balloon to instent restenosis RCA CORONARY ANGIOPLASTY WITH STENT PLACEMENT Left 10/2006 DESto prox Rt PAV, mid & dist RCA CORONARY ANGIOPLASTY WITH STENT PLACEMENT Left 11/2014 FLAKO to RCA CORONARY ANGIOPLASTY WITH STENT PLACEMENT Left 10/2007 FLAKO to Prox Rt PAV, mid-dist RCA CORONARY ANGIOPLASTY WITH STENT PLACEMENT Left 03/2009 FLAKO to mid RCA CORONARY ANGIOPLASTY WITH STENT PLACEMENT Left 12/01/2021 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/PCI to prox RCA CORONARY ANGIOPLASTY WITH STENT PLACEMENT Left 10/2013 FLAKO to prox & mid RCA CORONARY ANGIOPLASTY WITH STENT PLACEMENT Left 12/2007 FLAKO to LAD CORONARY ANGIOPLASTY WITH STENT PLACEMENT Bilateral 03/17/2021 Flako to the Mid RCA, and the Distal RCA CORONARY ANGIOPLASTY WITH STENT PLACEMENT Left 12/2012 FLAKO to mid RCA & prox-mid Rt GRACE JOINT REPLACEMENT 03/2019 TOTAL HIP ARTHROPLASTY Left 12/2012 Family History Family History Problem Relation Name Age of Onset Diabetes Paternal Grandmother Diabetes Maternal Grandfather Cancer Sister Hypertension Mother Diabetes Sister Diabetes Paternal Grandfather Heart disease Paternal Grandmother Heart disease Paternal Grandfather Cancer Father Diabetes Brother Social History Social History Tobacco Use Smoking status: Never Smokeless tobacco: Never Substance Use Topics Alcohol use: Not Currently Drug use: No Allergies: Allergies Allergen Reactions Penicillins Rash Medications: Current Outpatient Medications: amiodarone (Pacerone) 200 MG tablet, Take 1 tablet by mouth daily., Disp: , Rfl: amLODIPine (Norvasc) 10 MG tablet, Take 1 tablet by mouth daily., Disp: , Rfl: apixaban (Eliquis) 5 MG tablet, Take 1 tablet by mouth 2 times daily., Disp: , Rfl: atorvastatin (Lipitor) 80 MG tablet, Take 1 tablet by mouth daily., Disp: , Rfl: cholecalciferol (Vitamin D-3) 20 MCG (800 UNIT) tablet, Take 800 Units by mouth daily., Disp: , Rfl: clopidogrel (Plavix) 75 MG tablet, Take 1 tablet by mouth daily., Disp: , Rfl: isosorbide mononitrate ER (Imdur) 60 MG 24 hr tablet, Take 1 tablet (60 mg) by mouth daily. Do not crush or chew., Disp: 90 tablet, Rfl: 3 lisinopril 20 MG tablet, Take 1 tablet by mouth daily., Disp: , Rfl: metoprolol tartrate (Lopressor) 50 MG tablet, Take 1 tablet by mouth 2 times daily., Disp: , Rfl: minoxidil (Loniten) 10 MG tablet, Take 0.5 tablets by mouth 2 times daily., Disp: , Rfl: nitroglycerin (Nitrostat) 0.4 MG SL tablet, Place 1 tablet under the tongue every 5 minutes as needed for Chest pain. If no relief after 3 tablets, call 01-22- immediately., Disp: 25 tablet, Rfl: 3 spironolactone (Aldactone) 25 MG tablet, Take 1 tablet (25 mg) by mouth 2 times daily., Disp: 180 tablet, Rfl: 3 Torsemide 40 MG tablet, Take 20 mg by mouth 2 times daily. 40 mg twice daily for 3 days then 20mg twice daily following (Patient taking differently: Take 20 mg by mouth 2 times daily.), Disp: 120 tablet, Rfl: 11 nitroglycerin (Nitrostat) 0.4 MG SL tablet, Place 1 tablet (0.4 mg) under the tongue every 5 minutes as needed for chest pain. May repeat dose every 5 minutes for up to 3 doses total., Disp: 100 tablet, Rfl: 11 zolpidem (Ambien) 5 MG tablet, Take 1 tablet (5 mg) by mouth Once for 1 dose. Take on the night of your sleep study., Disp: 1 tablet, Rfl: 0 Review of Systems: Review of Systems Constitutional: Positive for activity change and fatigue. HENT: Negative. Eyes: Negative. Respiratory: Positive for shortness of breath. Negative for cough and wheezing. Cardiovascular: Positive for chest pain (comes and goes, will have CP after eating and doing actvity) and leg swelling (improved). Gastrointestinal: Negative for abdominal distention, abdominal pain, constipation, diarrhea and nausea. Genitourinary: Negative for hematuria. Musculoskeletal: Positive for arthralgias. Neurological: Positive for dizziness (?vertigo). Negative for syncope, weakness and numbness. Hematological: Does not bruise/bleed easily. Psychiatric/Behavioral: Negative. Physical Examination: Vitals: Vitals: 12/03/22 1421 BP: 130/58 BP Location: Left arm Patient Position: Sitting BP Cuff Size: Adult long Pulse: 78 SpO2: 92% Weight: (!) 309 lb 9.6 oz (140 kg) Height: 6' 2 (1.88 m) Body mass index is 39.75 kg/m . Physical Exam Vitals reviewed. Constitutional: Appearance: He is obese. HENT: Head: Normocephalic. Cardiovascular: Rate and Rhythm: Normal rate and regular rhythm. Heart sounds: Normal heart sounds. No murmur heard. No gallop. Pulmonary: Effort: Pulmonary effort is normal. Breath sounds: Normal breath sounds. Musculoskeletal: General: No swelling. Cervical back: Neck supple. Skin: General: Skin is warm and dry. Neurological: General: No focal deficit present. Mental Status: He is alert and oriented to person, place, and time. Psychiatric: Mood and Affect: Mood normal. Behavior: Behavior normal. The cardiac exam today demonstrates a regular rhythm I hear no murmur or gallop. The chest is clear. The neck demonstrates venous pressure 2 to 3 cm above the clavicle at 45 degrees. Pressure normalizes to the level of the clavicle with inspiration. The extremities demonstrate no significant edema. Laboratory Tests: Lab Results Component Value Date WBC 7.4 09/29/2022 HGB 12.1 09/29/2022 HCT 38 09/29/2022 MCV 91.7 09/29/2022 Lab Results Component Value Date GLUCOSE 80 10/29/2022 CALCIUM 9.2 10/29/2022 NA 141 10/29/2022 K 3.9 10/29/2022 CO2 28 10/29/2022 CL 105 10/29/2022 BUN 34 (H) 10/29/2022 CREATININE 1.53 (H) 10/29/2022 @LASTCMP@ Lab Results Component Value Date CHLPL 144 08/05/2021 CHLPL 155 06/07/2019 Lab Results Component Value Date TRIG 132 08/05/2021 TRIG 98 06/07/2019 Lab Results Component Value Date HDL 49 08/05/2021 HDL 50 06/07/2019 Lab Results Component Value Date LDLCALC 69 08/05/2021 LDLCALC 85 06/07/2019 NT PRO BNP Date Value Ref Range Status 09/05/2019 645 (H) 0 - 125 pg/mL Final Assessment and Plan: 1. CAD in [place] artery 2. Primary hypertension 3. NSTEMI (non-ST elevated myocardial infarction) (CMS/HCC) (HCC) 4. PAF (paroxysmal atrial fibrillation) (CMS/HCC) (HCC) 5. Other hyperlipidemia My summary and recommendation today is to continue with his present medical program. His volume status today looks good. His last renal profile was reviewed. We will recheck a renal panel. He is awaiting a BiPAP for his sleep apnea. He now has a mask which fits well. He has to call the provider to ensure that the sleep apnea is addressed. I have asked him to schedule a follow-up visit in about a month. documented in this encounter [facility] 11-11-2022 History of Present illness Narrative [facility]EP [facility] ESTABLISHED PATIENT VISIT 11/12/2022 CHIEF COMPLAINT/REASON FOR REFERRAL: Chief Complaint Patient presents with Follow-up History of Present Illness: Shannon Dickerson is a 67-year-old man with medical history notable for CAD with chronically occluded RCA, atrial fibrillation treated with amiodarone, and prior diagnosis of obstructive sleep apnea. Sleep study was 25-30 years ago. Had been using a cpap but he is unsure of the settings. Got frustrated because the mask wasn't fitting and then tossed the cpap machine sometime last year. Has been without CPAP device for over a year now. He reports sleep quality is much worse without his CPAP. He thinks he gets 2 to 3 hours of sleep. He cites nocturia is the main reason for sleep interruption. But he attributes this to his diuretics. He says he takes his evening diuretic dose around 8 or 9 PM. He lives by himself and has no bed partner. He knows he snores because previous partners have told night. He also notes snort/gasp arousals. Does report occasional drowsy driving and nodding off behind the wheel but denies car accidents. Reports chronic excessive daytime somnolence. 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 His previous sleep study was over 25 years ago. We will proceed with in lab split-night PSG with PAP AHI is over 5. The patient is amenable to reusing CPAP as long as he gets a well fitting mask. Lab titration will allow us to troubleshoot with him regarding mask fit as well. Follow-up after PSG. Orders Placed This Encounter Procedures Polysomnography Sy Boyce MD Pulmonary, Critical Care, and Sleep Medicine Portions of the information within this encounter were entered using an electronic dictation system. Best attempts were made to edit/proofread the information prior to note completion. Despite the review of information, some errors may remain. If there are questions related to the information contained within the note please contact the signing physician directly. PastMedical History Past Medical History: Diagnosis Date Angina pectoris ([facility]) Anxiety Arrhythmia A-fib Asthma CAD (coronary artery disease) Cerebral artery occlusion with cerebral infarction ([facility]) COPD (chronic obstructive pulmonary disease) ([facility]) Depression WATTS (dyspnea on exertion) Fatigue GERD (gastroesophageal reflux disease) History of cardioversion 05/07/2016 Successful conversion of a-fib to SR History of left heart catheterization 05/07/2016 60% stenosis right posterior descending, patent stents in prox, mid & distal RCA, patent stents in med LCx. Findings unchanged from previous study. 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 correction current use of anticoagulant NSTEMI (non-ST elevated myocardial infarction) ([facility]) ([facility]) 12/2012 NSTEMI (non-ST elevated myocardial infarction) ([facility]) ([facility]) 05/2014 Obesity [place] (myocardial infarction) HIPOLITO (obstructive sleep apnea) HIPOLITO on CPAP PAF (paroxysmal atrial fibrillation) ([facility]) ([facility]) Rheumatoid arthritis(714.0) ([facility]) ST segment elevation myocardial infarction (STEMI) of anterolateral wall, subsequent episode of care ([facility]) ([facility]) TIA (transient ischemic attack) Past Surgical History Past Surgical History: Procedure Laterality Date CAPSULOTOMY, HAND 05/07/2016 CARDIAC PROCEDURE Left 05/2015 CARDIAC PROCEDURE Left 06/03/2017 CARDIAC PROCEDURE Bilateral 01/2010 CARDIAC PROCEDURE Left 09/05/2019 PCI to distal RCA and PL branch CHOLECYSTECTOMY 10/30/2019 CORONARY ANGIOPLASTY WITH STENT PLACEMENT Left 11/2006 restent RCA, FLAKO to CX CORONARY ANGIOPLASTY WITH STENT PLACEMENT Left 05/2014 PTCA /cuttung balloon to instent restenosis RCA CORONARY ANGIOPLASTY WITH STENT PLACEMENT Left 10/2006 DESto prox Rt PAV, mid & dist RCA CORONARY ANGIOPLASTY WITH STENT PLACEMENT Left 11/2014 FLAKO to RCA CORONARY ANGIOPLASTY WITH STENT PLACEMENT Left 10/2007 FLAKO to Prox Rt PAV, mid-dist RCA CORONARY ANGIOPLASTY WITH STENT PLACEMENT Left 03/2009 FLAKO to mid RCA CORONARY ANGIOPLASTY WITH STENT PLACEMENT Left 12/01/2021 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/PCI to prox RCA CORONARY ANGIOPLASTY WITH STENT PLACEMENT Left 10/2013 FLAKO to prox & mid RCA CORONARY ANGIOPLASTY WITH STENT PLACEMENT Left 12/2007 FLAKO to LAD CORONARY ANGIOPLASTY WITH STENT PLACEMENT Bilateral 03/17/2021 Flako to the Mid RCA, and the Distal RCA CORONARY ANGIOPLASTY WITH STENT PLACEMENT Left 12/2012 FLAKO to mid RCA & prox-mid Rt GRACE JOINT REPLACEMENT 03/2019 TOTAL HIP ARTHROPLASTY Left 12/2012 Allergies Allergies Allergen Reactions Penicillins Rash Medications Current Outpatient Medications: amiodarone (Pacerone) 200 MG tablet, Take 1 tablet by mouth daily., Disp: , Rfl: amLODIPine (Norvasc) 10 MG tablet, Take 1 tablet by mouth daily., Disp: , Rfl: apixaban (Eliquis) 5 MG tablet, Take 1 tablet by mouth 2 times daily., Disp: , Rfl: atorvastatin (Lipitor) 80 MG tablet, Take 1 tablet by mouth daily., Disp: , Rfl: cholecalciferol (Vitamin D-3) 20 MCG (800 UNIT) tablet, Take 800 Units by mouth daily., Disp: , Rfl: clopidogrel (Plavix) 75 MG tablet, Take 1 tablet by mouth daily., Disp: , Rfl: isosorbide mononitrate ER (Imdur) 60 MG 24 hr tablet, Take 1 tablet (60 mg) by mouth daily. Do not crush or chew., Disp: 90 tablet, Rfl: 3 lisinopril 20 MG tablet, Take 1 tablet by mouth daily., Disp: , Rfl: metoprolol tartrate (Lopressor) 50 MG tablet, Take 1 tablet by mouth 2 times daily., Disp: , Rfl: minoxidil (Loniten) 10 MG tablet, Take 0.5 tablets by mouth 2 times daily., Disp: , Rfl: nitroglycerin (Nitrostat) 0.4 MG SL tablet, Place 1 tablet under the tongue every 5 minutes as needed for Chest pain. If no relief after 3 tablets, call 9-1-1 immediately., Disp: 25 tablet, Rfl: 3 nitroglycerin (Nitrostat) 0.4 MG SL tablet, Place 1 tablet (0.4 mg) under the tongue every 5 minutes as needed for chest pain. May repeat dose every 5 minutes for up to 3 doses total., Disp: 100 tablet, Rfl: 11 spironolactone (Aldactone) 25 MG tablet, Take 1 tablet (25 mg) by mouth 2 times daily., Disp: 180 tablet, Rfl: 3 Torsemide 40 MG tablet, Take 20 mg by mouth 2 times daily. 40 mg twice daily for 3 days then 20mg twice daily following, Disp: 120 tablet, Rfl: 11 zolpidem (Ambien) 5 MG tablet, Take 1 tablet (5 mg) by mouth Once for 1 dose. Take on the night of your sleep study., Disp: 1 tablet, Rfl: 0 Social History Social History Socioeconomic History Marital status: Legally Spouse name: Not on file Number of children: Not on file Years of education: Not on file Highest education level: Not on file Occupational History Not on file Tobacco Use Smoking status: Never Smokeless tobacco: Never Substance and Sexual Activity Alcohol use: Not Currently Drug use: No Sexual activity: Not on file Other Topics Concern Not on file Social History Narrative Not on file Social Determinants of Health Financial Resource Strain: Not on file Food Insecurity: Not on file Transportation Needs: Not on file Physical Activity: Not on file Stress: Not on file Social Connections: Not on file Intimate Partner Violence: Not on file Housing Stability: Not on file FamilyHistory Family History Problem Relation Name Age of Onset Diabetes Paternal Grandmother Diabetes Maternal Grandfather Cancer Sister Hypertension Mother Diabetes Sister Diabetes Paternal Grandfather Heart disease Paternal Grandmother Heart disease Paternal Grandfather Cancer Father Diabetes Brother Review of Systems Review of Systems Respiratory: Positive for shortness of breath. Cardiovascular: Positive for leg swelling. Psychiatric/Behavioral: Positive for sleep disturbance. All other systems reviewed and are negative. Physical Exam Vitals: 11/11/22 0955 BP: 138/80 Pulse: 71 Resp: 18 SpO2: 91% Weight: (!) 309 lb 3.2 oz (140 kg) Height: 6' 2.49 (1.892 m) Physical Exam Constitutional: General: He is not in acute distress. Appearance: He is well-developed. He is obese. He is not ill-appearing. HENT: Head: Normocephalic and atraumatic. Right Ear: External ear normal. Left Ear: External ear normal. Nose: Nose normal. Mouth/Throat: Mouth: Mucous membranes are moist. Pharynx: Oropharynx is clear. No oropharyngeal exudate. Eyes: General: No scleral icterus. Right eye: No discharge. Left eye: No discharge. Extraocular Movements: Extraocular movements intact. Conjunctiva/sclera: Conjunctivae normal. Pupils: Pupils are equal, round, and reactive to light. Neck: Thyroid: No thyromegaly. Vascular: No JVD. Cardiovascular: Rate and Rhythm: Normal rate and regular rhythm. Pulses: Normal pulses. Heart sounds: Normal heart sounds. No murmur heard. Pulmonary: Effort: Pulmonary effort is normal. No respiratory distress. Breath sounds: Normal breath sounds. No stridor. No wheezing or rhonchi. Abdominal: General: There is no distension. Palpations: Abdomen is soft. There is no mass. Tenderness: There is no abdominal tenderness. There is no guarding. Musculoskeletal: General: No swelling or deformity. Normal range of motion. Cervical back: Normal range of motion and neck supple. Right lower leg: No edema. Left lower leg: No edema. Lymphadenopathy: Cervical: No cervical adenopathy. Skin: General: Skin is warm and dry. Coloration: Skin is not jaundiced. Findings: No rash. Neurological: General: No focal deficit present. Mental Status: He is alert and oriented to person, place, and time. Mental status is at baseline. Motor: No weakness. Gait: Gait normal. Psychiatric: Mood and Affect: Mood normal. Behavior: Behavior normal. Thought Content: Thought content normal. Judgment: Judgment normal. LABS and Studies: Available studies were personally reviewed. Salient findings summarized in HPI & A/P Imaging: CXR portable:No results found for this or any previous visit. CXR (2V): No results found for this or any previous visit. CT Chest: No results found for this or any previous visit. CTA Chest: No results found for this or any previous visit. Other Studies: Reviewed and as per electronic record. CxR/CT images personally reviewed by me when available; salient findings summarized in A/P. PFT's: Pulmonary Functions Testing Results: No results found for: FEV1, FVC, [id number], TLC, DLCO No results found for: FEV1, FVC, CAP4ZEV, TLC, DLCO documented in this encounter [facility] 11-11-2022 Instructions Marii Kumar Rai, MA - 11/11/2022 10:15 AM EDT YOUR APPOINTMENT TODAY WAS WITH THE [facility], COPD CLINIC, PULMONARY AND SLEEP MEDICINE OFFICE. PLEASE CALL OUR OFFICE AT [phone] IF YOU HAVE NOT RECEIVED YOUR TEST RESULTS 7 DAYS AFTER TESTING IS COMPLETED. PLEASE REMEMBER TO REQUEST REFILLS AT YOUR OFFICE VISITS. PHONE/FAX REQUESTS REQUIRE 48-72 HOURS FOR RESPONSE. A FRIENDLY REMINDER COPAYS ARE DUE AT TIME OF SERVICE. THANK YOU. Our Patients Are Important! We want to improve and you can help. After your visit we want you to feel: Listened to, Respected and have your health care explained. You may receive a survey asking you about your visit. Please complete the survey. We will use your feedback to make improvements. COVID-19 VACCINATION INFORMATION: PH. [phone] [email or web address] [facility] Central Scheduling [phone] [facility] Sleep Scheduling [phone] documented in this encounter [facility] 10-14-2022 History of Present illness Narrative error documented in this encounter [facility] 10-01-2022 History of Present illness Narrative Patient will need outstanding BNP and D.Dimer completed. I have also added repeat BMP as he is now on higher dose lasix starting this week documented in this encounter [facility] 09-28-2022 History of Present illness Narrative Images from the original note were not included. [facility] [address] [facility] [address] Dept: [phone] Dept Loc: [phone] Visit type: Established : 1955 Reason for Visit: Edema (Shortness of breath./Lower ext edema following shoulder surgery ) Assessment and Plan 1. Coronary artery disease involving s[place]ogon coronary artery of sokaogon heart without angina pectoris -Stable. No anginal complaints. Shortness of breath likely due to fluid retention. Continue treatment with Plavix, Imdur, lopressor. No ASA in light of OAC for Afib. - ECG 12 lead - CLINIC PERFORMED - NT PRO BNP 2. Localized edema -Ongoing since surgery with increased wt in the last week or so. No redness or pain. He has increased lasix with some improvement but swelling remains concerning for him. He denies recent dietary changes. He is unable to utilize compression hose due to recent left shoulder surgery and immobilizer. Reports some improvement with lasix. Will increase lasix to 80mg BID. Will obtain labs for surveillance. Patient will call with update later this week. If edema remains problematic will consider transitioning to torsemide. He will need to have labs completed today or tomorrow. Daily wts and low sodium diet discussed. Will obtain echocardiogram to reassess EF. - Basic metabolic panel - CBC auto differential - Transthoracic echocardiogram (TTE) complete with contrast, bubble, strain, and 3D PRN - Hepatic function panel - NT PRO BNP 3. PAF (paroxysmal atrial fibrillation) (CMS/HCC) (HCC) -Regular rate and rhythm. No complaints of recurrence. Continue Amiodarone, metoprolol and Apixaban. - Hepatic function panel - NT PRO BNP 4. Primary hypertension -Continue current medication regimen with EFRAIN, BB, CCB and nitrate. Lasix increased to 80mg BID today. Will reassess in follow up - NT PRO BNP 5. Chronic obstructive pulmonary disease, unspecified COPD type (HCC) -Stable. Mild increase in dyspnea on exertion. - NT PRO BNP 6. WATTS (dyspnea on exertion) -Mild increase since recent left arm surgery. Will obtain labs for survailence. Will obtain D.dimer for completion considering recent surgery. No chest pain no hypoxia. - NT PRO BNP Follow up for Follow up in 2 weeks . Subjective HPI Shannon Dickerson is a 66 year old male seen today due to edema. He has history of PAF, HTN, COPD, TIA, HLD and CAD s/p multiple PCI. He is known to Dr. Gonzales. Most recent cath 11/2021 showed: Patent stent in proximal LAD. Patent stent in proximal-mid LCx. Mid RCA instent restenosis with 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 and left to right collaterals. There was unsuccessful attempt to revascularize mid RCA instent restenosis 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.Guidewire was passed across the occlusion and multiple balloon inflations without flow into the distal vessels. (review of the last cath shows very poor vessels distal to the stents). Collateral flow from the LCA was documented to the small PDA and PLV of the RCA. Recommendations at that time were optimal medical therapy for CAD and maximize the antianginals. Continue with plavix and eliquis. 06/2022: most recent visit with electrical systems drafter: chest pain with activity that relived with rest. Imdur was increased. 09/18/2022: Patient called office with complaint of lower ext edema since shoulder surgery 07/2022. He reports taking lasix twice daily lately. He was asked to maintain low sodium diet and begin daily weights. Patient presents today feeling okay. He reports needing to use additional lasix daily since last week due to edema in legs. Prior to surgery he only needed lasix once daily. He additionally has complaint of intermittent shortness of breath which he states is typical but now he feels SOB at times walking to the mail box. This is resolved with rest. He also feels that in the last couple nights he he SOB or has difficulty laying flat at times due to feeling like breathing is harder. Denies PND. Laying in bed is uncomfortable at times due to shoulder so he sleeps in chair with legs elevated some nights. [place] in legs is less in the AM but still present. No dietary changes. He feels his jeans are tighter these days. He tells me wt is steady at around 300 typically but increased to 312 a few days last week which prompted him to increase lasix. Wt has slowly decreased with additional lasix. Reports some increase in urine output with higher dose lasix. He has no complaints of chest pain (no recent Nitroglycerin use), palpitations or presyncope. + dizziness at times due to vertigo. He has increased activity lately for more exercise. Participating in shoulder PT without issues. Review of Systems Constitutional: Positive for activity change (due to left shoulder immobility) and fatigue (due to not doing much). Negative for chills, diaphoresis and fever. HENT: Negative for nosebleeds and trouble swallowing. Eyes: Negative for discharge and visual disturbance. Respiratory: Positive for shortness of breath (intermittent). Negative for apnea, cough, chest tightness and wheezing. Cardiovascular: Positive for leg swelling. Negative for chest pain and palpitations. Gastrointestinal: Positive for abdominal distention (feels belly is bloated. pants are tight). Negative for abdominal pain, blood in stool, diarrhea, nausea and vomiting. Endocrine: Negative for cold intolerance and heat intolerance. Genitourinary: Negative for hematuria. Musculoskeletal: Positive for arthralgias. Negative for gait problem and myalgias. Skin: Negative for color change and rash. Neurological: Positive for dizziness (due to vertigo). Negative for seizures, syncope, facial asymmetry, speech difficulty, weakness, light-headedness, numbness and headaches. Hematological: Does not bruise/bleed easily. Psychiatric/Behavioral: Negative for dysphoric mood. Allergies Allergen Reactions Penicillins Rash Outpatient Medications Prior to Visit Medication Sig Dispense Refill amiodarone (Pacerone) 200 MG tablet Take 1 tablet by mouth daily. amLODIPine (Norvasc) 10 MG tablet Take 1 tablet by mouth daily. apixaban (Eliquis) 5 MG tablet Take 1 tablet by mouth 2 times daily. atorvastatin (Lipitor) 80 MG tablet Take 1 tablet by mouth daily. clopidogrel (Plavix) 75 MG tablet Take 1 tablet by mouth daily. furosemide (Lasix) 40 MG tablet Take 1 tablet by mouth 2 times daily. Starting last week isosorbide mononitrate ER (Imdur) 60 MG 24 hr tablet Take 1 tablet (60 mg) by mouth daily. Do not crush or chew. 90 tablet 3 lisinopril 20 MG tablet Take 1 tablet by mouth daily. metoprolol tartrate (Lopressor) 50 MG tablet Take 1 tablet by mouth 2 times daily. minoxidil (Loniten) 10 MG tablet Take 0.5 tablets by mouth 2 times daily. nitroglycerin (Nitrostat) 0.[address] 0.4 mg under the tongue. spironolactone (Aldactone) 25 MG tablet Take 1 tablet by mouth daily. cholecalciferol (Vitamin D-3) 20 MCG (800 UNIT) tablet Take 800 Units by mouth daily. No facility-administered medications prior to visit. Past Medical History: Diagnosis Date Angina pectoris ([facility]) Anxiety Arrhythmia A-fib Asthma CAD (coronary artery disease) Cerebral artery occlusion with cerebral infarction ([facility]) COPD (chronic obstructive pulmonary disease) ([facility]) Depression WATTS (dyspnea on exertion) Fatigue GERD (gastroesophageal reflux disease) History of cardioversion 05/07/2016 Successful conversion of a-fib to SR History of left heart catheterization 05/07/2016 60% stenosis right posterior descending, patent stents in prox, mid & distal RCA, patent stents in med LCx. Findings unchanged from previous study. 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 NSTEMI (non-ST elevated myocardial infarction) ([facility]) ([facility]) 12/2012 NSTEMI (non-ST elevated myocardial infarction) ([facility]) ([facility]) 05/2014 Obesity [place] (myocardial infarction) HIPOLITO (obstructive sleep apnea) HIPOLITO on CPAP PAF (paroxysmal atrial fibrillation) ([facility]) ([facility]) Rheumatoid arthritis(714.0) ([facility]) ST segment elevation myocardial infarction (STEMI) of anterolateral wall, subsequent episode of care ([facility]) ([facility]) TIA (transient ischemic attack) Social History Tobacco Use Smoking status: Never Smokeless tobacco: Never Substance Use Topics Alcohol use: Not Currently Past Surgical History: Procedure Laterality Date CAPSULOTOMY, HAND 05/07/2016 CARDIAC PROCEDURE Left 05/2015 CARDIAC PROCEDURE Left 06/03/2017 CARDIAC PROCEDURE Bilateral 01/2010 CARDIAC PROCEDURE Left 09/05/2019 PCI to distal RCA and PL branch CHOLECYSTECTOMY 10/30/2019 CORONARY ANGIOPLASTY WITH STENT PLACEMENT Left 11/2006 restent RCA, FLAKO to CX CORONARY ANGIOPLASTY WITH STENT PLACEMENT Left 05/2014 PTCA /cuttung balloon to instent restenosis RCA CORONARY ANGIOPLASTY WITH STENT PLACEMENT Left 10/2006 DESto prox Rt PAV, mid & dist RCA CORONARY ANGIOPLASTY WITH STENT PLACEMENT Left 11/2014 FLAKO to RCA CORONARY ANGIOPLASTY WITH STENT PLACEMENT Left 10/2007 FLAKO to Prox Rt PAV, mid-dist RCA CORONARY ANGIOPLASTY WITH STENT PLACEMENT Left 03/2009 FLAKO to mid RCA CORONARY ANGIOPLASTY WITH STENT PLACEMENT Left 12/01/2021 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/PCI to prox RCA CORONARY ANGIOPLASTY WITH STENT PLACEMENT Left 10/2013 FLAKO to prox & mid RCA CORONARY ANGIOPLASTY WITH STENT PLACEMENT Left 12/2007 FLAKO to LAD CORONARY ANGIOPLASTY WITH STENT PLACEMENT Bilateral 03/17/2021 Flako to the Mid RCA, and the Distal RCA CORONARY ANGIOPLASTY WITH STENT PLACEMENT Left 12/2012 FLAKO to mid RCA & prox-mid Rt GRACE JOINT REPLACEMENT 03/2019 TOTAL HIP ARTHROPLASTY Left 12/2012 Family History Problem Relation Name Age of Onset Diabetes Paternal Grandmother Diabetes Maternal Grandfather Cancer Sister Hypertension Mother Diabetes Sister Diabetes Paternal Grandfather Heart disease Paternal Grandmother Heart disease Paternal Grandfather Cancer Father Diabetes Brother Objective Vitals: 09/28/22 1314 BP: 138/72 Pulse: 66 Resp: 20 Weight: (!) 308 lb (140 kg) Height: 6' 2 (1.88 m) Physical Exam Constitutional: Appearance: Normal appearance. He is obese. HENT: Head: Normocephalic and atraumatic. Nose: No congestion. Mouth/Throat: Mouth: Mucous membranes are moist. Eyes: General: Right eye: No discharge. Left eye: No discharge. Cardiovascular: Rate and Rhythm: Normal rate and regular rhythm. Pulses: Normal pulses. Pulmonary: Effort: No respiratory distress. Breath sounds: Normal breath sounds. No wheezing, rhonchi or rales. Abdominal: General: There is no distension. Palpations: Abdomen is soft. Tenderness: There is no abdominal tenderness. Comments: Round- obese Musculoskeletal: Cervical back: Normal range of motion. Right lower leg: Edema (1-2+ up to mid lower leg) present. Left lower leg: Edema (2+ up to mid lower eg) present. Comments: Left arm in immobilizer type device No redness to lower ext. Leg edema slightly worse. Patient states this is typical Skin: General: Skin is warm and dry. Capillary Refill: Capillary refill takes less than 2 seconds. Neurological: General: No focal deficit present. Mental Status: He is alert and oriented to person, place, and time. Psychiatric: Mood and Affect: Mood normal. Data Reviewed and Summarized No results found for: EFBP, PLVEF, LVEFPHYS, LVEF2D, EF Review of tests/labs Lab Results Component Value Date GLUCOSE 122 (H) 12/01/2021 CALCIUM 9.0 12/01/2021 NA 143 12/01/2021 K 4.1 12/01/2021 CO2 24 12/01/2021 CL 107 12/01/2021 BUN 30 (H) 12/01/2021 CREATININE 1.24 12/01/2021 Lab Results Component Value Date WBC 6.8 12/01/2021 HGB 13.1 12/01/2021 MCV 90.3 12/01/2021 [id number] Score for Atrial Fibrillation Stroke Risk Risk Factors C CHF No, 0 H HTN Yes, 1 A2 Age >= 75 No, 0 D DM No, 0 S2 Prior Stroke/TIA Yes, 1 V Vascular Disease Yes, 1 A Age 65-74 Yes, 1 Sc Sex Male, 0 [id number] Score 4 Calculator: [id number] risk stratification score for estimation of stroke risk for nonvalvular atrial fibrillation in adults - UpToDate Atrial fibrillation in adults: Use of oral anticoagulants - UpToDate DANIELLE Bernstein CNP documented in this encounter [facility] [employer] 09-28-2022 Instructions DANIELLE Bernstein CNP - 09/28/2022 1:30 PM EDT -Increase lasix to 80mg twice daily -Call office with update -Weigh yourself daily first thing in the AM after urinating. Wear similar clothes. Keep log with date. Call office if you have greater than 3lb weight gain in one day or greater or 5lb weight gain in one week. -Call office if increased shortness of breath, difficulty laying flat to sleep at night due to shortness of breath and/or increased swelling in legs or abdomen. Call to schedule Echo. documented in this encounter [facility] 03-18-2021 Note Name: Shannon Dickerson Date of : 1955 Date of Admission: 03/17/2021 Date of Discharge: 03/18/2021 Admitting physician: Campbell Gonzales MD Discharge Attending: DANIELLE Whitehead CNP, Primary Care Physician: MARINO SUAREZ Review of Systems: Review of Systems Constitutional: Negative for chills, diaphoresis and fever. Respiratory: Negative for cough, shortness of breath and wheezing. Cardiovascular: Negative for chest pain, palpitations and leg swelling. Gastrointestinal: Negative for abdominal pain, blood in stool, constipation, diarrhea, nausea and vomiting. Genitourinary: Negative for hematuria. Neurological: Negative for dizziness and syncope. Physical Exam: Physical Exam Constitutional: General: He is not in acute distress. Appearance: Normal appearance. He is well-developed. He is not diaphoretic. HENT: Mouth/Throat: Pharynx: No oropharyngeal exudate. Eyes: General: No scleral icterus. Right eye: No discharge. Left eye: No discharge. Neck: Thyroid: No thyromegaly. Vascular: No JVD. Cardiovascular: Rate and Rhythm: Normal rate and regular rhythm. Chest Wall: PMI is not displaced. Pulses: Normal pulses. Radial pulses are 2+ on the right side. Heart sounds: Normal heart sounds. No murmur heard. No gallop. Comments: Right radial catheterization site well healed. Right ulnar pulse 2+. Pulmonary: Effort: No accessory muscle usage or respiratory distress. Breath sounds: Normal breath sounds. Abdominal: General: Bowel sounds are normal. There is no distension. Palpations: Abdomen is soft. Tenderness: There is no abdominal tenderness. Musculoskeletal: General: Normal range of motion. Right lower leg: No edema. Left lower leg: No edema. Skin: General: Skin is warm and dry. Neurological: Mental Status: He is alert and oriented to person, place, and time. Vitals: 03/17/21 2100 03/17/21 2200 03/17/21 2300 03/18/21 0000 BP: (!) 173/79 (!) 118/41 (!) 163/72 (!) 103/39 Pulse: 57 59 60 57 Resp: 19 17 16 16 Temp: TempSrc: SpO2: Weight: Height: Reason for Admission: Angina Pectoris Consultants: Cardiac rehab HOSPITAL ADMISSION PROBLEM LIST: Patient Active Problem List Diagnosis ? NSTEMI (non-ST elevated myocardial infarction) ([facility]) ? Hypertension ? Hyperlipidemia ? Atherosclerotic heart disease of [place] coronary artery with other forms of angina pectoris (HCC) ? COPD (chronic obstructive pulmonary disease) ([facility]) ? HIPOLITO on CPAP ? PAF (paroxysmal atrial fibrillation) ([facility]) ? correction current use of anticoagulant ? correction current use of antiarrhythmic drug ? HIPOLITO (obstructive sleep apnea) ? Chest pain ? CAD (coronary artery disease) ? Unstable angina ([facility]) ? CAD in [place] artery ? Status post left heart catheterization Procedures: Cath Summary: 03/17/2021 INDICATIONS: Unstable angina. Atherosclerotic coronary artery disease. Previous stent. ? ----- Procedures performed: ? # Right coronary angiography. # Left coronary angiography. # Percutaneous intervention on the 80% stenosis in the mid right coronary. Balloon angioplasty. Stent placement. Stent placement. Stent placement. # Percutaneous intervention on the 100% occlusion in the distal right coronary. Balloon angioplasty. Balloon angioplasty. # Percutaneous intervention on the stenosis in the proximal right coronary. Balloon angioplasty. ? ----- SUMMARY: ? 1. Left circumflex: Prior intervention: stent in the mid left circumflex. The stented segment is patent. 2. Right coronary: Prior intervention: stent in the distal RCA. Proximal vessel lesion: Angioplasty was performed (see 3rd lesion intervention). Distal vessel lesion: The diagnostic study demonstrated a diffuse, 100%occlusionin the previous stent. The distal vessel supplies a moderate-sized vascular territory. The lesion is a likely culprit for the patient's anginal symptoms. Stent placement was performed, with balloon angioplasty, resulting in an improved angiographic appearance (see 2nd lesion intervention). Following intervention, there is a residual 0% stenosis with JORDAN grade 3 flow (brisk flow). Mid-vessel lesion: The diagnostic study demonstrated a tubular, 80%stenosis. The distal vessel supplies a large vascular territory. The lesion is a likely culprit for the patient's anginal symptoms. Stent placement was performed, with balloon angioplasty, resulting in an excellent angiographic appearance (see 1st lesion intervention). Following intervention, there is a residual 0% stenosis with JORDAN grade 2 flow (partial perfusion). IMPRESSIONS: ? 1. Successful re-stenting of the mid-distal RCA ( 3.5 mm at high pressure reuired 38 mm, 38mm, and 23 mm stenst) 2. Small diffusely disease (more content not included)... [facility] 09-26-2020 Note HNO ID: [id number] Author: Mari Madison LPN Service: ? Author Type: ? Type: Progress Notes Filed: 09/26/2020 3:51 PM Note Text: POPULATION HEALTH NAVIGATION OUTREACH Action/ HTN - Attempted to contact patient regarding elevated BP. Looks like he is following with cardiology, no answer letter mailed. Contact made with patient or family member? NO Pt identified by name and : YES Outreach Outcome/Action Letter mailed Reason for Outreach Care Gap or Scheduling/Wellness visits Payer: Payor: EDELMIRA / Plan: [employer] PPO / Product Type: PPO / Care Gap Reviewed:: Controlling Blood Pressure Reminder: Reminder note to check Health Maintenance for items below Health Maintenance items due: HEPATITIS C SCREENING Never done HIV SCREENING Never done BP CONTROLLED (<130/80) Never done ONE PNEUMOVAX PRIOR TO AGE 65 Never done SHINGRIX VACCINE(1 of 2) Never done DEPRESSION SCREENING due on 06/14/2019 LDL CHOLESTEROL due on 06/06/2020 Advanced Directives Completed: Have you ever planned for future healthcare decisions with a power of energy attorney, living will, or advance directives? No. Are you interested in a follow-up phone call or visit with a doctor for more information about planning for future health care decisions? No Referrals: N/A Message Sent to Practice: NO Navigation Signature: Mari Madison LPN September 26, 2020 3:40 PM [facility] 09-26-2020 Note Patient Outreach (IN TMWS) SHANNON DICKERSON Marlena ([id number]) 1955 M Date Time Provider Department 09/26/20 MARINO SUAREZ During your visit today, we recorded the following information about you: Mari Madison LPN 09/26/2020 3:51 PM Signed POPULATION HEALTH NAVIGATION OUTREACH Action/FYI HTN - Attempted to contact patient regarding elevated BP. Looks like he is following with cardiology, no answer letter mailed. Contact made with patient or family member? NO Pt identified by name and : YES Outreach Outcome/Action Letter mailed Reason for Outreach Care Gap or Scheduling/Wellness visits Payer: Payor: EDELMIRA / Plan: BLUE ACCESS PPO / Product Type: PPO / Care Gap Reviewed:: Controlling Blood Pressure Reminder: Reminder note to check Health Maintenance for items below Health Maintenance items due: HEPATITIS C SCREENING Never done HIV SCREENING Never done BP CONTROLLED (<130/80) Never done ONE PNEUMOVAX PRIOR TO AGE 65 Never done SHINGRIX VACCINE(1 of 2) Never done DEPRESSION SCREENING due on 06/14/2019 LDL CHOLESTEROL due on 06/06/2020 Advanced Directives Completed: Have you ever planned for future healthcare decisions with a power of energy attorney, living will, or advance directives? No. Are you interested in a follow-up phone call or visit with a doctor for more information about planning for future health care decisions? No Referrals: N/A Message Sent to Practice: NO Navigation Signature: Mari Madison LPN September 26, 2020 3:40 PM Allergies As of Date: 09/26/2020 Noted Allergy Reaction PENICILLINS 05/07/2005 2 - Rash Date Reviewed: 06/17/2020 Reviewed by: Mari Madison LPN - Fully Assessed Reason for Visit: Appointment [[id number]] Prescriptions as of 09/26/2020 Sig: LISINOPRIL 40 MG TABLET Take 0.5 tablets by mouth onc* MINOXIDIL 10 MG TABLET Take 1 tablet by mouth twice * SPIRONOLACTONE 25 MG TABLET Take 25 mg by mouth. ATORVASTATIN 80 MG TABLET Take 80 mg by mouth. METOPROLOL TARTRATE 50 MG TAB* Take 1 tablet by mouth twice * FUROSEMIDE 40 MG TABLET Take 1 tablet by mouth once d* CPAP Continue CPAP at current sett* APIXABAN 5 MG TABLET Take 1 tablet by mouth twice * ALBUTEROL 90 MCG/ACTUATION AE* Inhale 2 Puffs as instructed * NITROGLYCERIN 0.4 MG SUBLINGU* Dissolve one(1) tablet under * Problem List As Of Date 09/26/2020 Noted Resolved CAD S/P percutaneous coronary angioplasty [I25.*01/19/2007 Mixed hyperlipidemia [E78.2] 03/07/2007 Routine general medical examination at [facility]*02/01/2009 09/04/2014 Class: Chronic Essential hypertension, benign [I10] 02/01/2009 Family Hx of Prostate Cancer [Z80.42] 02/01/2009 Impaired fasting glucose [R73.01] 04/30/2009 Diarrhea [R19.7] 10/15/2009 09/04/2014 HIPOLITO (obstructive sleep apnea) [G47.33] 10/13/2010 Polyuria [R35.8] 10/13/2010 09/04/2014 Gallstones [K80.20] 11/18/2010 Unspecified gastritis and gastroduodenitis with*11/26/2010 09/04/2014 Abdominal pain, epigastric [R10.13] 11/26/2010 09/04/2014 Acute gastritis without mention of hemorrhage [*01/20/2011 09/04/2014 Abdominal pain, unspecified site [R10.9] 01/20/2011 09/04/2014 Paroxysmal atrial fibrillation (HCC) [I48.0] 05/07/2016 Presence of left artificial shoulder joint [Z96*06/17/2020 Presence of unspecified artificial knee joint [*06/17/2020 History of coronary artery stent placement [Z95*06/17/2020 History of knee joint replacement [Z96.659] 06/17/2020 History of inguinal hernia repair [Z98.890, Z87*06/17/2020 History of total right hip replacement [Z96.641]06/17/2020 Encounter Status:Closed by MARI MADISON LPN on 09/26/20 [facility] documented in this encounter [facility]* Diagnosis WATTS (dyspnea on exertion)- Primary Other dyspnea and respiratory abnormality Localized edema Edema documented in this encounter [facility]* Diagnosis HIPOLITO (obstructive sleep apnea)- Primary Obstructive sleep apnea (adult) (pediatric) Transient disorder of initiating or maintaining sleep documented in this encounter [facility]* Diagnosis Localized edema Edema documented in this encounter [facility]* Diagnosis CAD in [place] artery Primary hypertension Unspecified essential hypertension NSTEMI (non-ST elevated myocardial infarction) ([facility]) ([facility]) Acute myocardial infarction, subendocardial infarction, episode of care unspecified PAF (paroxysmal atrial fibrillation) ([facility] ([facility]) Atrial fibrillation Other hyperlipidemia documented in this encounter [facility]* Diagnosis HIPOLITO (obstructive sleep apnea)- Primary Obstructive sleep apnea (adult) (pediatric) documented in this encounter [facility]* Diagnosis Renal insufficiency- Primary Unspecified disorder of kidney and ureter documented in this encounter [facility]* Diagnosis Chest pain- Primary Unspecified chest pain Chest pain Unspecified chest pain Status post left heart catheterization CAD in [place] artery Class 2 obesity in adult COPD (chronic obstructive pulmonary disease) ([facility]) Chronic airway obstruction, not elsewhere classified HIPOLITO on CPAP PAF (paroxysmal atrial fibrillation) ([facility] ([facility]) Atrial fibrillation documented in this encounter [facility]* Diagnosis Presence of coronary angioplasty implant and graft documented in this encounter [facility]* Diagnosis WATTS (dyspnea on exertion)- Primary Other dyspnea and respiratory abnormality documented in this encounter [facility]* Diagnosis WATTS (dyspnea on exertion)- Primary Other dyspnea and respiratory abnormality CAD in [place] artery PAF (paroxysmal atrial fibrillation) ([facility]) ([facility]) 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 Stage 3a chronic kidney disease ([facility]) Primary hypertension Unspecified essential hypertension Other hyperlipidemia Presence of coronary angioplasty implant and graft documented in this encounter [facility]* Diagnosis CAD in [place] artery documented in this encounter [facility]* Diagnosis Atherosclerotic heart disease of [place] coronary artery with other forms of angina pectoris ([facility]) NSTEMI (non-ST elevated myocardial infarction) ([facility]) ([facility]) Acute myocardial infarction, subendocardial infarction, episode of care unspecified Hypertension, unspecified type PAF (paroxysmal atrial fibrillation) ([facility]) Atrial fibrillation Atherosclerotic heart disease of [place] coronary artery with other forms of angina pectoris ([facility])- Primary Atherosclerotic heart disease of [place] coronary artery with other forms of angina pectoris ([facility]) [facility] Diagnosis Atherosclerotic heart disease of [place] coronary artery with other forms of angina pectoris (HCC)- Primary Coronary artery disease of [place] artery of [place] heart with stable angina pectoris (HCC) Atherosclerotic heart disease of [place] coronary artery with other forms of angina pectoris (HCC) documented in this encounter [facility]* Diagnosis CAD in [place] artery- Primary Essential hypertension, benign Chronic diastolic heart failure (HCC) Chronic diastolic heart failure PAF (paroxysmal atrial fibrillation) (HCC) Atrial fibrillation Mixed hyperlipidemia documented in this encounter [facility]* Diagnosis HIPOLITO (obstructive sleep apnea)- Primary Obstructive sleep apnea (adult) (pediatric) [facility] Diagnosis CAD in [place] artery- Primary Chronic diastolic heart failure (HCC) Chronic diastolic heart failure Essential hypertension, benign PAF (paroxysmal atrial fibrillation) (HCC) Atrial fibrillation Mixed hyperlipidemia documented in this encounter [facility] note* Diagnosis HIPOLITO treated with BiPAP- Primary Atherosclerotic heart disease of [place] coronary artery with other forms of angina pectoris (HCC) PAF (paroxysmal atrial fibrillation) (HCC) Atrial fibrillation Chronic diastolic heart failure (HCC) Chronic diastolic heart failure Chronic bronchitis, unspecified chronic bronchitis type (HCC) documented in this encounter [facility]* Diagnosis CAD in [place] artery- Primary Chronic diastolic heart failure (HCC) Chronic diastolic heart failure Essential hypertension, benign PAF (paroxysmal atrial fibrillation) (HCC) Atrial fibrillation Mixed hyperlipidemia documented in this encounter [facility] note* Diagnosis CAD in [place] artery- Primary Chronic diastolic heart failure (HCC) Chronic diastolic heart failure Essential hypertension, benign PAF (paroxysmal atrial fibrillation) (HCC) Atrial fibrillation Mixed hyperlipidemia documented in this encounter [facility] Summary Purpose Family History No Family History Records FoundNo Family History Records FoundNo Family History Records FoundNo Family History Records FoundNo Family History Records Found Advance Directives No Advanced Directives Records FoundDocuments on File Type Date Recorded Patient Coal Gasification Technician Expl anation Advance Directives and Livin g Will 10/29/2022 3:11 PM Power of Garage Mechanic 10/29/2022 3:11 PM Documents on File Type Date Recorded Patient Coal Gasification Technician Expl anation Advance Directives and Livin g Will 10/29/2022 3:11 PM Power of Garage Mechanic 10/29/2022 3:11 PM Latest Code Status on File Code Status Date Activated Date Inactivated Comments Full Code 12/06/2022 10:34 AM Healthcare Agents on File Name Relationship Healthcare Agent Relationshi p Communication Reynold Olguin First Alternate Health Care Agent Latest Code Status on File Code Status Date Activated Date Inactivated Comments Full Code 12/06/2022 10:34 AM 12/08/2022 8:11 PM Healthcare Agents on File Name Relationship Healthcare Agent Relationshi p Communication Reynold Olguin First Alternate Health Care Agent Latest Code Status on File Code Status Date Activated Date Inactivated Comments Full Code 12/06/2022 10:34 AM 12/08/2022 8:11 PM Healthcare Agents on File Name Relationship Healthcare Agent Relationshi p Communication Reynold Olguin First Alternate Health Care Agent Healthcare Agents on File Name Relationship Healthcare Agent Relationshi p Communication Reynold Olguin First Alternate Health Care Agent Healthcare Agents on File Name Relationship Healthcare Agent Relationshi p Communication Reynold Olguin First Alternate Health Care Agent Healthcare Agents on File Name Relationship Healthcare Agent Relationshi p Communication Reynold Olguin First Alternate Health Care Agent Healthcare Agents on File Name Relationship Healthcare Agent Relationshi p Communication Reynold Olguin First Alternate Health Care Agent Healthcare Agents on File Name Relationship Healthcare Agent Relationshi p Communication Reynold Olguin First Alternate Health Care Agent Healthcare Agents on File Name Relationship Healthcare Agent Relationshi p Communication Reynold Olguin First Alternate Health Care Agent Healthcare Agents on File Name Relationship Healthcare Agent Relationshi p Communication Reynold Olguin First Alternate Health Care Agent Latest Code Status on File Code Status Date Activated Date Inactivated Comments Full Code 03/01/2023 7:15 AM 03/01/2023 1:40 PM Code Status History Code Status Date Activated Date Inactivated Comments Full Code 12/06/2022 10:34 AM 12/08/2022 8:11 PM Healthcare Agents on File Name Relationship Healthcare Agent Relationshi p Communication Reynold Olguin First Alternate Health Care Agent Latest Code Status on File Code Status Date Activated Date Inactivated Comments Full Code 03/01/2023 7:15 AM 03/01/2023 1:40 PM Code Status History Code Status Date Activated Date Inactivated Comments Full Code 12/06/2022 10:34 AM 12/08/2022 8:11 PM Healthcare Agents on File Name Relationship Healthcare Agent Relationshi p Communication Reynold Mathias Alternate Health Care Agent Healthcare Agents on File Name Relationship Healthcare Agent Relationshi p Communication Reynold Mathias Alternate Health Care Agent Healthcare Agents on File Name Relationship Healthcare Agent Relationshi p Communication Reynold Mathias Alternate Health Care Agent Healthcare Agents on File Name Relationship Healthcare Agent Relationshi p Communication Reynold Mathias Alternate Health Care Agent Healthcare Agents on File Name Relationship Healthcare Agent Relationshi p Communication Reynold Mathias Alternate Health Care Agent Reason for Referral Specialty Diagnoses / Procedures Referred By Contac t Referred To Contact Cardiology Diagnoses Localized edema Procedures Transthoracic echocardiogram (TTE) complete with contrast, bubble, strain, and 3D PRN WY ECHO TTHRC R-T 2D W/WOM-MODE COMPL SPEC&COLR D WY TTE W OR WO FOL WCON,DOPPLER Dolores Pat D, LOSS PREVENTION INVESTIGATOR - DISC SANDER [address] [place] [address] Referral ID Status Reason Start Date Expiration Date Visits Requested Visits Authorized [id number] Pending Review Perform Procedure 09/28/2022 03/27/2023 1 1 Specialty Diagnoses / Procedures Referred By Contac t Referred To Contact Sleep Medicine Diagnoses HIPOLITO (obstructive sleep apnea) Procedures Polysomnography Sy Boyce MD [address] [facility] [address] [place] [address] [facility] [address] [place] [address] Referral ID Status Reason Start Date Expiration Date V isits Requested Visits Authorized [id number] Authorized 11/11/2022 05/10/2023 1 1 Specialty Diagnoses / Procedures Referred By Contac t Referred To Contact Cardiology Diagnoses Localized edema Procedures Transthoracic echocardiogram (TTE) complete with contrast, bubble, strain, and 3D PRN WY ECHO TTHRC R-T 2D W/WOM-MODE COMPL SPEC&COLR D WY TTE W OR WO FOL COLE SOLANO Sadine D, LOSS PREVENTION INVESTIGATOR - DISC SANDER [address] [place] [address] [address] Non-Invasive Cardiology [address] [place] [address] Referral ID Status Reason Start Date Expiration Date V isits Requested Visits Authorized [id number] Closed Perform Procedure 09/28/2022 03/27/2023 1 1 Specialty Diagnoses / Procedures Referred By Dariusz laws Referred To Contact Carmen Thornton, LOSS PREVENTION INVESTIGATOR - DISC SANDER [address] [facility] [address] [place] [address] Referral ID Status Reason Start Date Expiration Date V isits Requested Visits Authorized [id number] Authorized 11/30/2022 02/29/2024 1 1 Additional Source Comments (unrecognized sect ion and content) No Status Records FoundNo Status Records FoundNo Status Records FoundNo Status Records FoundNo Status Records Found INFORMATION SOURCE (unrecogn ized section and content) DATE CREATED AUTHOR AUTHOR'S ORGANIZ ATION 09/20/2019 [facility] [employer] [facility] DATE CREATED AUTHOR AUTHOR'S ORGANIZ ATION 07/06/2021 [facility] DATE CREATED AUTHOR AUTHOR'S ORGANIZ ATION 01/03/2022 [facility] [employer] [facility] DATE CREATED AUTHOR AUTHOR'S ORGANIZ ATION 07/08/2023 [facility] Reason for Visit (unrecogniz ed section and content) Reason Comments Follow-up Specialty Diagnoses / Procedures Referred By Dariusz t Referred To Contact Cardiology Diagnoses Localized edema Procedures Transthoracic echocardiogram (TTE) complete with contrast, bubble, strain, and 3D PRN WY ECHO TTHRC R-T 2D W/WOM-MODE COMPL SPEC&COLR D WY TTE W OR WO FOL WCCOLE JUARES Sadine D, LOSS PREVENTION INVESTIGATOR - DISC SANDER [address] [place] [address] [facility] [address] [facility] Non-Invasive Cardiology [address] [place] [phone] Referral ID Status Reason Start Date Expiration Date V isits Requested Visits Authorized [id number] Closed Perform Procedure 09/28/2022 03/27/2023 1 1 Reason Comments Follow-up Reason Comments Sleep Apnea Results Specialty Diagnoses / Procedures Referred By Contac t Referred To Contact Diagnoses Chest pain NSTEMI Procedures . 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) [I25.118] Procedures Left heart cath / coronary angiography Campbell Gonzales MD [address] [id number] [facility] [address] [place] [id number] Referral ID Status Reason Start Date Expiration Date Visits Re quested Visits Authorized [id number] 1 Reason Comments Follow-up Shortness of Breath Chest Pain Reason Comments Follow-up Sleep Apnea Reason Comments Follow-up Shortness of Breath Dizziness Reason Onset Date Comments Results 04/13/2023 Reason Comments Follow-up Chest Pain Dizziness Shortness of Breath Care Teams (unrecognized sec tion and content) Tool Dresser Relationship Specialty Start Date End Date Elizabeth Logan MD [address] [facility] [address] [place] [id number] PCP - General Family Medicine 09/28/22 Tool Dresser Relationship Specialty Start Date End Date Elizabeth Logan MD [address] [facility] [address] [place] [address] PCP - General Family Medicine 09/28/22 Tool Dresser Relationship Specialty Start Date End Date Elizabeth Logan MD [address] [facility] [address] [place] [address] PCP - General Family Medicine 09/28/22 Tool Dresser Relationship Specialty Start Date End Date Elizabeth Logan MD [address] [facility] [address] [place] [address] PCP - General Family Medicine 09/28/22 Tool Dresser Relationship Specialty Start Date End Date Elizabeth Logan MD [address] [facility] [address] [place] [address] PCP - General Family Medicine 09/28/22 Tool Dresser Relationship Specialty Start Date End Date Elizabeth Logan MD [address] [facility] [address] [place] [address] PCP - General Family Medicine 09/28/22 Tool Dresser Relationship Specialty Start Date End Date Elizabeth Logan MD [address] [facility] [address] [place] [address] PCP - General Family Medicine 09/28/22 Tool Dresser Relationship Specialty Start Date End Date Elizabeth Logan MD [address] [facility] [address] [place] [address] PCP - General Family Medicine 09/28/22 Tool Dresser Relationship Specialty Start Date End Date Elizabeth Logan MD [address] [facility] [address] [place] [address] PCP - General Family Medicine 09/28/22 Tool Dresser Relationship Specialty Start Date End Date Elizabeth Logan MD [address] [facility] [address] [place] [address] PCP - General Family Medicine 09/28/22 Tool Dresser Relationship Specialty Start Date End Date Elizabeth Logan MD [address] [facility] [address] [place] [address] PCP - General Family Medicine 09/28/22 Tool Dresser Relationship Specialty Start Date End Date Elizabeth Logan MD [address] [facility] [address] [place] [address] PCP - General Family Medicine 09/28/22 Tool Dresser Relationship Specialty Start Date End Date Elizabeth Logan MD [address] [facility] [address] [place] [address] PCP - General Family Medicine 09/28/22 Tool Dresser Relationship Specialty Start Date End Date Elizabeth Logan MD [address] [facility] [place] [address] PCP - General Family Medicine 09/28/22 Tool Dresser Relationship Specialty Start Date End Date Elizabeth Logan MD [address] [facility] [place] [address] PCP - General Family Medicine 09/28/22 Tool Dresser Relationship Specialty Start Date End Date Elizabeth Logan MD [address] [place] [address] PCP - General Family Medicine 09/28/22 Tool Dresser Relationship Specialty Start Date End Date Elizabeth Logan MD [address] [place] [address] PCP - General Family Medicine 09/28/22 Tool Dresser Relationship Specialty Start Date End Date Elizabeth Logan MD [address] [place] [address] PCP - General Family Medicine 09/28/22 Tool Dresser Relationship Specialty Start Date End Date Elizabeth Logan MD [address] [place] [address] PCP - General Family Medicine 09/28/22 Tool Dresser Relationship Specialty Start Date End Date Elizabeth Logan MD [address] [place] [address] PCP - General Family Medicine 09/28/22 Tool Dresser Relationship Specialty Start Date End Date Elizabeth Logan MD [address] [place] [address] PCP - General Family Medicine 09/28/22 Scheduled Active and Recently Administ ered Medications (unrecognized section and content) PRN Medication Order 12/06/2022 12/07/2022 12/08/2022 acetaminophen (Tylenol) suppository 650 mg(Linked Group 1) 650 mg, Rectal, Every 6 hours PRN, mild pain (1-3), fever, For temp greater than 100.4 F (38 C), Starting on Wed12/06/22 at 1032, Administer if oral route cannot be used. Maximum dose of acetaminophen is 4000 mg from all sources in 24 hours. 1758 (See Alternative - Provider: Brandi Lugo RN) acetaminophen (Tylenol) tablet 650 mg(Linked Group 1) 650 mg, Oral, Every 6 hours PRN, mild pain (1-3), fever, For temp greater than 100.4 F (38 C), Starting on 12/06/22 at 1032, Maximum dose of acetaminophen is 4000 mg from all sources in 24 hours. 1758 (Given - Provider: Brandi Lugo RN) benzonatate (Tessalon) capsule 100 mg 100 mg, Oral, 3 times daily PRN, cough, Starting on Wed12/06/22 at 1105, Do not crush or chew. 1322 (Given - Provider: Brandi Lugo RN)2011 (Given - Provider: Noe Gayle RN) 2003 (Given - Provider: Audelia Wilcox RN) ipratropium-albuterol (Duo-Neb) 0.5-2.5 mg/3 mL nebulizer solution 3 mL 3 mL, Nebulization, Every 4 hours PRN, wheezing, Starting on Wed12/07/22 at 0818 nitroglycerin (Nitrostat) SL tablet 0.4 mg 0.4 mg, SubLINGual, Every 5 min PRN, chest pain, Starting on Wed12/06/22 at 1033, May administer up to 3 doses per episode. polyethylene glycol (PEG) 3350 (Miralax) packet 17 g 17 g, Oral, Daily PRN, constipation, Starting on Wed12/06/22 at 1032, 1st line for treatment of constipation - give scheduled if no bowel movement in past 24 hours. sodium chloride 0.9 % infusion 5-250 mL/hr, IntraVENous, PRN, if patient receiving piggyback infusions and maintenance fluids are not ordered OR KVO fluids to protect IV site / prevent frequent line interruptions / long duration, Starting on Wed12/06/22 at 1032, For piggyback infusion, administer at same rate as piggyback for a total of 25 mL. Enter 25 mL into dose field and piggyback rate into rate field of order. If piggyback is infusing at a rate less than 100 mL/hr, enter 25 mL into dose field and 100 mL/hr into rate field of order. For KVO fluids, enter rate of 20 mL/hr or less into rate field of order. sodium chloride 0.9% (NS) flush 5-40 mL 5-40 mL, IntraVENous, PRN, line care, After every IV line use, Starting on 12/06/22 at 1032, For Line Patency: Peripheral IV = 5 mL; Midline or Central Line = 10 mL/lumen. If following IV push medication, administer flush at same rate as the IV push. Flush volume is determined by type of infusion therapy being given. For non-viscous solutions use: Peripheral IV = 5 mL Midline or Central Line = 10 mL/lumen For viscous solutions (i.e. blood components, parenteral nutrition, contrast media, or after obtaining blood sample) use: Peripheral IV = 10 mL Midline or Central Line = 20 mL/lumen Linked Groups Order Group 1: acetaminophen (Tylenol) tablet 650 mgJump to med 650 mg, Oral, Every 6 hours PRN, mild pain (1-3), fever, For temp greater than 100.4 F (38 C), Starting on 12/06/22 at 1032
Maximum dose of acetaminophen is 4000 mg from all sources in 24 hours.
Or acetaminophen (Tylenol) suppository 650 mgJump to med 650 mg, Rectal, Every 6 hours PRN, mild pain (1-3), fever, For temp greater than 100.4 F (38 C), Starting on 12/06/22 at 1032
Administer if oral route cannot be used. Maximum dose of acetaminophen is 4000 mg from all sources in 24 hours.
Scheduled Medication Order 02/27/2023 02/28/2023 03/01/2023 sodium chloride 0.9% (NS) flush 5-40 mL 5-40 mL, IntraVENous, Every 12 hours, First dose on Wed03/01/23 at 0730, Preprocedure, For Line Patency: Peripheral IV = 5 mL; Midline or Central Line = 10 mL/lumen. If following IV push medication, administer flush at same rate as the IV push. Flush volume is determined by type of infusion therapy being given. For non-viscous solutions use: Peripheral IV = 5 mL Midline or Central Line = 10 mL/lumen For viscous solutions (i.e. blood components, parenteral nutrition, contrast media, or after obtaining blood sample) use: Peripheral IV = 10 mL Midline or Central Line = 20 mL/lumen 0730 (Canceled Entry - Provider: Automatic Discharge Provider - Comment: Automatically canceled at discontinue of medication order) Continuous Medication Order 02/27/2023 02/28/2023 03/01/2023 sodium chloride 0.9 % infusion 100 mL/hr, IntraVENous, Continuous, Starting on Wed03/01/23 at 0730, For 2 hours, Preprocedure 0730 (Due) PRN Medication Order 02/27/2023 02/28/2023 03/01/2023 heparin injection (CANCELED) IntraVENous, As needed, Starting on Wed03/01/23 at 0824, Intraprocedure 0824 (Given - Provid er: Audelia Chisholm RN) iopamidol (Isovue-300) 61 % injection (CANCELED) As needed, Starting on Wed03/01/23 at 0841, Intraprocedure 0841 (Given - Provid er: Campbell Gonzales MD) lidocaine (Xylocaine) 1 % injection (CANCELED) As needed, Starting on Wed03/01/23 at 0814, Intraprocedure 0814 (Given - Provid er: Gabino Louie DO) sodium chloride 0.9 % infusion 5-250 mL/hr, IntraVENous, PRN, if patient receiving piggyback infusions and maintenance fluids are not ordered OR KVO fluids to protect IV site / prevent frequent line interruptions / long duration, Starting on Wed03/01/23 at 0715, Preprocedure, For piggyback infusion, administer at same rate as piggyback for a total of 25 mL. Enter 25 mL into dose field and piggyback rate into rate field of order. If piggyback is infusing at a rate less than 100 mL/hr, enter 25 mL into dose field and 100 mL/hr into rate field of order. For KVO fluids, enter rate of 20 mL/hr or less into rate field of order. sodium chloride 0.9% (NS) flush 5-40 mL 5-40 mL, IntraVENous, PRN, line care, After every IV line use, Starting on Wed03/01/23 at 0715, Preprocedure, For Line Patency: Peripheral IV = 5 mL; Midline or Central Line = 10 mL/lumen. If following IV push medication, administer flush at same rate as the IV push. Flush volume is determined by type of infusion therapy being given. For non-viscous solutions use: Peripheral IV = 5 mL Midline or Central Line = 10 mL/lumen For viscous solutions (i.e. blood components, parenteral nutrition, contrast media, or after obtaining blood sample) use: Peripheral IV = 10 mL Midline or Central Line = 20 mL/lumen verapamil (Isoptin) injection (CANCELED) As needed, Starting on Wed03/01/23 at 0822, Intraprocedure 0822 (Given - Provid er: Gabino Louie DO) FOR RECORDS PERTAINING TO PATIENTS WHO ARE OR HAVE BEEN ENROLLED IN A CHEMICAL DEPENDENCY/SUBSTANCEABUSE PROGRAM, SOME INFORMATION MAY BE OMITTED. This clinical summary was aggregated from multiple sources. Caution should be exercised in using it in the provision of clinical care. This summary normalizes information from multiple sources, and as a consequence, information in this document may materially change the coding, format and clinical context of patient data. In addition, data may be omitted in some cases. CLINICAL DECISIONS SHOULD BE BASED ON THE PRIMARY CLINICAL RECORDS. [employer] provides no warranty or guarantee of the accuracy or completeness of information in this document.
[2023-07-09 07:32] VITALS: PULSE 62; RESP 16; TEMP 36.3; O2SAT 97
[2023-07-09 07:34] VITALS: BP 137/76
[2023-07-09] MEDS: Lidocaine Jelly 2% 20 ML Syringe (URO-JET) 1 APPLIC (07:35)
== END 2023-07-09 08:15 | disposition home or self-care (01) ==
PROVIDERS: PCP Family Medicine; Referring Provider Family Medicine; Visit Provider Surgery
PROC: F00ZJWZ Instrumental Swallowing and Oral Function Assessment using Swallowing Equipment (ICD-10-PCS; CPT 43235; principal; 2023-07-09 07:15)
DX: K21.9 Gastro-esophageal reflux disease without esophagitis (principal)
CPT/HCPCS: 91010

== ENCOUNTER → 2023-07-12 | Outpatient (CLI) | payer MEDICARE, OTHER, SELFPAY ==
--- NOTE | 2023-07-12 11:25 | NM_ITS ---
CLINICAL: 67-year-old male with history of bile gastritis, abdominal pain. SEMI-SOLID PHASE 99m Tc SULFUR COLLOID GASTRIC EMPTYING STUDY COMPARISON: CT of the abdomen-pelvis report 07/05/2023 FINDINGS: The patient was administered 1.2 mCi of 99m Tc sulfur colloid mixed with oatmeal and consumed per os. Image acquisitions in the anterior-posterior projection were obtained for 60 minutes. There is prompt visualization of the stomach. There is no gastroesophageal reflux identified. The T ? linear fit was calculated to be 47.39 minutes, (Normal: 12-56 minutes). NM/Gastric Emptying Study IMPRESSION: 1. NORMAL 99m Tc sulfur colloid semi-solid phase (oatmeal) gastric emptying imaging examination. A. There is normal and preserved semi-solid phase gastric emptying compared to normal controls. (Joshua et al, J Nucl Med Tech 38: 186, 2010). Electronically Signed: Javy Newman DO at 9:21 EST ,
== END | disposition home or self-care (01) ==
LOC: NM 11:24
PROVIDERS: PCP Family Medicine; Referring Provider Surgery; Visit Provider Surgery
DX: K29.60 Other gastritis without bleeding (principal)
CPT/HCPCS: 78264; A9541

== ENCOUNTER → 2023-07-13 | Outpatient (CLI) | payer MEDICARE, OTHER, SELFPAY ==
[2023-07-13 14:01] LABS: Bacteria 0 SEEN /hpf (None Seen); Mucous, Urine 0 SEEN /hpf (<or=2+); Red Blood Cells-Urine 0 SEEN /hpf (0-5); Squamous Epithelial Cells - UA 0 SEEN /hpf (0-5)
[2023-07-13 15:28] LABS: Absolute Lymphocyte Count 1.67 X10^3/uL (0.83-4.51); Absolute Neutrophil Count 7.4 X10^3/uL (2.0-7.7); Basophil# 0.06 X10^3/uL; Basophil% 0.6 % (0-1); Eosinophil# 0.12 X10^3/uL; Eosinophils% 1.2 % (0-5); Hematocrit 40.5 % (40-54); Lymphocyte # 1.67 X10^3/ul (0.83-4.51); Lymphocyte % 16.8 % (19-41); Mean Corp Hgb Conc 32.1 g/dL (32-36); Mean Corpuscular Hgb 28.8 pg (27.0-32.0); Mean Corpuscular Volume 89.6 fL (80-94); Mean Platelet Vol. 9.8 fl (6.2-12.0); Monocyte# 0.67 X10^3/uL; Monocyte% 6.7 % (0-10); NRBC Flagged by Analyzer 0 % (0-5); Neutrophil # 7.38 X10^3/uL (2.7-7.7); Neutrophil % 74.2 % (47-70); Platelet Count 292 K/mm3 (150-450); RBC Distribution Width CV 14.6 % (11.6-14.6); RBC Distribution Width SD 47.4 fl (35.1-43.9); Red Blood Count 4.52 M/mm3 (4.6-6.2)
[2023-07-13 15:52] LABS: Vitamin D,25 Hydroxy 32.3 ng/mL
[2023-07-13 16:05] LABS: ALB/GLOB Ratio 0.9 RATIO (0.9-2.4); AST(SGOT) 15 U/L (15-37); Alanine Aminotransfer ALT/SGPT 31 U/L (16-61); Albumin, Serum 3.7 g/dL (3.2-5.0); Alkaline Phosphatase 95 U/L (45-117); Anion Gap 7 (5-15); BUN 25 mg/dL (7-18); BUN/Creat Ratio 14.5 RATIO (10-20); Calcium,Total 9.5 mg/dL (8.5-10.1); Chloride 109 mmol/L (98-107); Cholesterol 174 mg/dL (200); Creatinine, Serum 1.72 mg/dL (0.70-1.30); EST Glomerular Filtration Rate 42 mL/min (>60); Est Glom Filt Rate - Afr Amer 51 mL/min (>60); Globulin 4.2 g/dL (2.2-4.2); Glucose 90 mg/dL (74-106); High Density Lipoprotein 52 mg/dL; Magnesium 2.2 mg/dL (1.6-2.6); Phosphorus 3.8 mg/dL (2.5-4.9); Potassium 4.2 mmol/L (3.5-5.1); Protein, Total 7.9 g/dL (6.4-8.2); Sodium Level 141 mmol/L (136-145); Triglycerides 260 mg/dL; Very Low Density Lipoprotein 52 mg/dL (5-40)
[2023-07-13 18:02] LABS: Color, Urine Yellow (Yellow); Glucose, Dipstick Normal (Normal); Ketone-Dipstick 5 mg/dl (Negative); Leukocyte Esterase-Dipstick 25 /ul (Negative); Nitrite-Dipstick Negative (Negative); Occult Blood-Urine Negative /ul (Negative); Protein-Dipstick Negative (Negative); Urine Bilirubin Dipstick Negative (Negative); Urine Clarity Clear (Clear); Urine Urobilinogen Normal (Normal)
[2023-07-13 18:20] LABS: White Blood Cells 0-5 SEEN /hpf (0-5)
[2023-07-13 18:21] LABS: Hyaline Cast 5-10 SEEN /lpf (0-5)
[2023-07-13 18:51] LABS: Protein, Urine (Random) 9.6 mg/dL (<11.9); Protein:Creat Ratio 76 mg/g CRE (0-200)
== END | disposition home or self-care (01) ==
LOC: MFPLAB 13:58
PROVIDERS: PCP Family Medicine; Visit Provider Family Medicine
DX: E78.5 Hyperlipidemia, unspecified (principal); I48.91 Unspecified atrial fibrillation; N18.30 Chronic kidney disease, stage 3 unspecified; E55.9 Vitamin D deficiency, unspecified
CPT/HCPCS: 36415; 80053; 80061; 81001; 82306; 82570; 83735; 83970; 84100; 84156; 85025

== ENCOUNTER → 2023-10-04 | Outpatient (CLI) | payer MEDICARE, OTHER, SELFPAY ==
--- NOTE | 2023-10-04 11:11 | US_ITS ---
STUDY: THYROID ULTRASOUND REASON FOR EXAM: Male, 67 years old. Left thyroid nodule. TECHNIQUE: Ultrasound evaluation of the thyroid was performed with real-time and static bee-scale imaging. COMPARISON: Comparison is made with prior examination dated September 25, 2022. FINDINGS: RIGHT LOBE: The right lobe of the thyroid gland measures 4.4 cm x 2 cm x 1.8 cm. There is a heterogeneous echotexture. There are several subcentimeter hypodense nodules. These are unchanged. LEFT LOBE: The left lobe of the thyroid gland measures 4.5 cm x 1.7 cm x 2.1 cm. There is a heterogeneous echotexture. There is a dominant 1.67 x 1.4 cm x 1.4 cm hypoechoic solid nodule in the lower pole of the left lobe. Perinodular vascularity is seen. TI-RADS Category 3. ISTHMUS: The isthmus measures 8 mm. The regional lymph nodes are normal. US/Thyroid IMPRESSION: Stable examination. Electronically Signed: Beka Zuleta MD at 15:25 EDT ,
== END | disposition home or self-care (01) ==
LOC: US 11:04
PROVIDERS: PCP Family Medicine; Referring Provider Surgery; Visit Provider Surgery
DX: E04.1 Nontoxic single thyroid nodule (principal)
CPT/HCPCS: 76536

== ENCOUNTER → 2023-12-01 | Outpatient (CLI) | payer MEDICARE, OTHER, SELFPAY ==
[2023-12-01 08:59] LABS: Bacteria 0 SEEN /hpf (None Seen); Mucous, Urine 0 SEEN /hpf (<or=2+); Red Blood Cells-Urine 0 SEEN /hpf (0-5); Squamous Epithelial Cells - UA 0 SEEN /hpf (0-5); White Blood Cells 0 SEEN /hpf (0-5)
[2023-12-01 10:05] LABS: Absolute Lymphocyte Count 1.38 X10^3/uL (0.83-4.51); Absolute Neutrophil Count 7.4 X10^3/uL (2.0-7.7); Basophil# 0.05 X10^3/uL; Basophil% 0.5 % (0-1); Eosinophil# 0.08 X10^3/uL; Eosinophils% 0.8 % (0-5); Hematocrit 38.7 % (40-54); Hemoglobin 12.8 g/dL (13.0-16.5); Lymphocyte # 1.38 X10^3/ul (0.83-4.51); Lymphocyte % 14.6 % (19-41); Mean Corp Hgb Conc 33.1 g/dL (32-36); Mean Corpuscular Hgb 29.2 pg (27.0-32.0); Mean Corpuscular Volume 88.4 fL (80-94); Mean Platelet Vol. 9.8 fl (6.2-12.0); Monocyte# 0.47 X10^3/uL; NRBC Flagged by Analyzer 0 % (0-5); Neutrophil # 7.42 X10^3/uL (2.7-7.7); Neutrophil % 78.6 % (47-70); Platelet Count 226 K/mm3 (150-450); RBC Distribution Width CV 14.2 % (11.6-14.6); RBC Distribution Width SD 45.4 fl (35.1-43.9); Red Blood Count 4.38 M/mm3 (4.6-6.2); White Blood Count 9.5 K/mm3 (4.4-11.0)
[2023-12-01 10:28] LABS: Vitamin D,25 Hydroxy 46.4 ng/mL
[2023-12-01 10:30] LABS: Color, Urine Yellow (Yellow); Glucose, Dipstick Normal (Normal); Ketone-Dipstick Negative (Negative); Leukocyte Esterase-Dipstick Negative /ul (Negative); Nitrite-Dipstick Negative (Negative); Occult Blood-Urine Negative /ul (Negative); Protein-Dipstick Negative (Negative); Specific Gravity, Urine 1.015 (1.002-1.030); Urine Bilirubin Dipstick Negative (Negative); Urine Clarity Clear (Clear); Urine Urobilinogen Normal (Normal)
[2023-12-01 10:48] LABS: AST(SGOT) 19 U/L (15-37); Alanine Aminotransfer ALT/SGPT 34 U/L (16-61); Albumin, Serum 3.7 g/dL (3.2-5.0); Alkaline Phosphatase 97 U/L (45-117); Anion Gap 8 (5-15); BUN 34 mg/dL (7-18); BUN/Creat Ratio 16.9 RATIO (10-20); Calcium,Total 9.3 mg/dL (8.5-10.1); Chloride 106 mmol/L (98-107); Cholesterol 153 mg/dL (200); Creatinine, Serum 2.01 mg/dL (0.70-1.30); EST Glomerular Filtration Rate 35 mL/min (>60); Est Glom Filt Rate - Afr Amer 43 mL/min (>60); Ferritin 290 ng/mL (26-388); Globulin 3.8 g/dL (2.2-4.2); Glucose 135 mg/dL (74-106); High Density Lipoprotein 52 mg/dL; Iron 72 ug/dL (65-175); Iron Binding Capacity,Total 294 ug/dL (250-450); Magnesium 2.2 mg/dL (1.6-2.6); Potassium 3.7 mmol/L (3.5-5.1); Protein, Total 7.5 g/dL (6.4-8.2); Sodium Level 139 mmol/L (136-145); Thyroid Stim Hormone (TSH) 1.11 uIU/mL (0.358-3.74); Triglycerides 240 mg/dL; Very Low Density Lipoprotein 48 mg/dL (5-40)
== END | disposition home or self-care (01) ==
LOC: MFPLAB 08:57
PROVIDERS: PCP Family Medicine; Visit Provider Family Medicine
DX: E55.9 Vitamin D deficiency, unspecified (principal); I48.91 Unspecified atrial fibrillation; I10 Essential (primary) hypertension; E61.1 Iron deficiency; E78.5 Hyperlipidemia, unspecified
CPT/HCPCS: 36415; 80053; 80061; 81001; 82306; 82728; 83540; 83550; 83735; 84443; 85025

== ENCOUNTER → 2024-01-11 | Outpatient (CLI) | payer MEDICARE, OTHER, SELFPAY ==
[2024-01-11 15:57] LABS: Anion Gap 4 (5-15); BUN 26 mg/dL (7-18); BUN/Creat Ratio 15.8 RATIO (10-20); Calcium,Total 9.1 mg/dL (8.5-10.1); Chloride 109 mmol/L (98-107); Creatinine, Serum 1.65 mg/dL (0.70-1.30); EST Glomerular Filtration Rate 44 mL/min (>60); Est Glom Filt Rate - Afr Amer 54 mL/min (>60); Glucose 105 mg/dL (74-106); Potassium 3.7 mmol/L (3.5-5.1); Sodium Level 141 mmol/L (136-145)
== END | disposition home or self-care (01) ==
PROVIDERS: PCP Family Medicine
DX: I50.32 Chronic diastolic (congestive) heart failure (principal)
CPT/HCPCS: 36415; 80048

== ENCOUNTER 2024-03-12 12:29 | Emergency (ER) | payer MEDICARE, OTHER, SELFPAY ==
[2024-03-12 12:30] VITALS: BP 152/81; PULSE 67; RESP 19; TEMP 36.6; O2SAT 100; BMI 39.5
--- NOTE | 2024-03-12 15:09 | ED.VIS.LOWEX ---
HPI History of Present Illness Chief Complaint: Lower Extremity Injury Narrative Narrative: 68-year-old male who denies significant past medical history presents with right foot pain, swelling, and redness since yesterday. He denies any fevers or chills. He states that sometimes when he works all day, he has pain in his feet, but yesterday he noticed redness on the top of his foot, and a burning pain. He denies any chest pain or shortness of breath. No thigh or calf pain. He was concerned about a blood clot because of the swelling of his foot and the redness. [facility] Medical History Left rotator cuff tear History of echocardiogram Anxiety Excessive bleeding PONV (postoperative nausea and vomiting) Sleep apnea History of stress test Wears glasses Depression High cholesterol Gastric reflux Difficulty swallowing Non-smoker COPD (chronic obstructive pulmonary disease) Shortness of breath on exertion Leg cramps History of edema Hypertension Cardiology follow-up encounter History of heart attack History of atrial fibrillation Chest pain Sensorineural hearing loss, bilateral Dysphagia Epidermal inclusion cyst NSVT (nonsustained ventricular tachycardia) Screening for malignant neoplasm of intestine Cholelithiasis with chronic cholecystitis COPD (chronic obstructive pulmonary disease) CAD (coronary artery disease) Atrial fibrillation severe degenerative arthritis of right hip Rheumatoid arthritis Obstructive sleep apnea syndrome history of ischemic stroke HTN (hypertension) Hyperlipidemia Esophageal reflux Coronary atherosclerosis of rincon coronary vessel Home Medications ?Medication ?Instructions ?Recorded ?Last Taken ?Type minoxidil 10 mg tablet 5 mg PO BID blood pressure 10/05/19 05/20/23 History nitroglycerin 0.4 mg sublingual 0.4 mg sublingual Q5-15M PRN cp 10/05/19 Unknown History tablet atorvastatin 80 mg tablet 80 mg PO QHS #30 tabs 10/31/20 05/19/23 Rx clopidogrel 75 mg tablet (Plavix) 75 mg PO DAILY 09/09/21 05/19/23 History apixaban 5 mg tablet (Eliquis) 5 mg PO BID 10/30/21 05/18/23 History isosorbide mononitrate 30 mg 60 mg PO DAILY 01/07/22 05/20/23 History tablet,extended release 24 hr pantoprazole 40 mg tablet,delayed 40 mg PO QAM #90 tabs 11/09/22 12/27/23 Rx release (Protonix) metoprolol succinate 50 mg 25 mg PO DAILY 04/07/23 05/20/23 History tablet,extended release 24 hr ranolazine 1,000 mg 500 mg PO BID 04/07/23 05/20/23 History tablet,extended release,12 hr (Ranexa) torsemide 20 mg tablet 20 mg PO DAILY 04/07/23 05/19/23 History metoprolol tartrate 50 mg tablet 25 mg PO QHS 05/19/23 05/20/23 History amiodarone 200 mg tablet 200 mg PO DAILY 05/20/23 05/20/23 History sucralfate 1 gram tablet (Carafate) 1 g PO .qid #360 tabs 05/20/23 Unknown Rx magnesium citrate 300 ml PO X1 #1 BOTTLE 07/05/23 Unknown Rx ondansetron 4 mg disintegrating 4 mg PO Q8H PRN PRN Nausea #10 tabs 07/05/23 Unknown Rx tablet sulfamethoxazole 800 1 tab PO BID #20 tabs 03/12/24 Unknown Rx mg-trimethoprim 160 mg tablet (Bactrim DS) Allergy/AdvReac Type Severity Reaction Status Date / Time Penicillins Allergy Hives Verified 10/22/23 07:43 Family History Sister Cancer ovarian Diabetes Brother Diabetes Mother Heart disease Hypertension Father Prostate cancer Surgical History S/P PTCA (percutaneous transluminal coronary angioplasty) Hx of cholecystectomy History of colonoscopy (~2014) History of esophagogastroduodenoscopy (EGD) (~2014) History of knee joint replacement History of total right hip arthroplasty History of inguinal hernia repair History of left shoulder replacement History of total left hip arthroplasty History of coronary angioplasty History of heart artery stent History of cardiac catheterization Social History household members: none Smoking Status: Never smoker alcohol intake: never substance use type: does not use ROS ROS ED ROS Narrative Constitutional: No fever, no chills. HEENT: No sore throat. No neck pain. No loss of vision. No rhinorrhea. Cardiovascular: No chest pain. No palpitations. No pedal edema. Respiratory: No cough, no shortness of breath. Abdominal: No abdominal pain. No nausea. No vomiting. Genitourinary: No dysuria. No hematuria. Musculoskeletal: No myalgias. Burning pain, pain with weightbearing right foot. Neurologic: No headaches. No dizziness. No lightheadedness. Skin: No rash. Positive redness dorsum of foot. Psychiatric: No depression. No anxiety. EXAM Physical Exam Narrative Exam Narrative: Afebrile. Vital signs noted. Nontoxic-appearing. Regular rate and rhythm. Lungs clear to auscultation bilaterally. Abdomen soft nontender with normal active bowel sounds. Inspection of the right foot does reveal an erythematous patch on the dorsum of the foot across the tarsal bones. Palpable dorsalis pedis pulse. Dry, cracked flaky skin on toes and in between. No crepitance. No lymphangitis. No palpable cord or tenderness to palpation right thigh or calf. Const Vital Signs: 03/12/24 12:30 03/12/24 15:20 Temperature 97.8 F 97.8 F Temperature Source Temporal Pulse Rate 67 70 Respiratory Rate 19 H 19 H Blood Pressure 152/81 H 152/81 H Blood Pressure Mean 104 104 Pulse Ox 100 100 Oxygen Delivery Method Room Air MDM MDM MDM Narrative Medical decision making narrative: Differential diagnosis includes but not limited to DVT versus cellulitis. I have low suspicion for fracture as he denies any trauma to the area. I do not feel x-rays or laboratory work is indicated. I did write him an outpatient ultrasound study as it is unavailable at this day in our. I will treat him as a cellulitis. He was given his first dose of Bactrim DS because he has an allergy to penicillins and hives. He was given a prescription for the next 10 days. He will follow-up with his primary care provider. Additionally, on discussion with the patient, he is already on Eliquis so the likelihood of a DVT is exceptionally low. He was told this, but states he feels anxious regarding the concern for a blood clot so he will go ahead and continue with getting an outpatient ultrasound of his right lower extremity. Return instructions to the emergency department were reviewed. Disposition is discharged home in stable condition. Discharge Plan Triage Chief Complaint: Lower Extremity Injury ED Provider: Ronald Churchill Dx/Rx/DC Orders Clinical Impression: Cellulitis, Foot swelling Instructions: ED Cellulitis Prescriptions: New sulfamethoxazole-trimethoprim [Bactrim DS] 800-160 mg tablet 1 tab PO BID Qty: 20 0RF No Action nitroglycerin 0.4 mg tablet, sublingual 0.4 mg SUBLINGUAL Q5-15M PRN (Reason: cp) Rx Instructions: do not exceed 3 doses per episode minoxidil 10 mg tablet 5 mg PO BID Patient Comments: TAKE ONE-HALF TABLET BY MOUTH TWICE DAILY Eliquis 5 mg tablet 5 mg PO BID pantoprazole [Protonix] 40 mg tablet,delayed release (DR/EC) 40 mg PO QAM Qty: 90 3RF ranolazine [Ranexa] 1,000 mg tablet extended release 12 hr 500 mg PO BID metoprolol succinate 50 mg tablet extended release 24 hr 25 mg PO DAILY torsemide 20 mg tablet 20 mg PO DAILY atorvastatin 80 mg Tablet 80 mg PO QHS Qty: 30 0RF clopidogrel [Plavix] 75 mg Tablet 75 mg PO DAILY isosorbide mononitrate 30 mg Tablet Extended Release 24 Hr 60 mg PO DAILY ondansetron 4 mg tablet,disintegrating 4 mg PO Q8H PRN PRN (Reason: Nausea) Qty: 10 0RF magnesium citrate Solution 300 ml PO X1 Qty: 1 0RF metoprolol tartrate 50 mg tablet 25 mg PO QHS amiodarone 200 mg tablet 200 mg PO DAILY Patient Comments: TAKE ONE TABLET BY MOUTH DAILY sucralfate [Carafate] 1 gram tablet 1 g PO .qid Qty: 360 0RF Other Ambulatory Orders: Venous Duplex US, Unilateral (Stat) Facility: [facility] - Location: [facility] Ordered By: Ronald Churchill Primary Care Provider: Finn Ferrell Referrals: Finn Ferrell MD [Primary Care Provider] - 3-5 Days if not improving Activity Restrictions/Additional Instructions: Return with increased swelling of foot, increased redness, fever, red streak up your leg, new or worsening symptoms. Print Language: Tajik Disposition Disposition: Home, Self Care Discharge Date/Time: 03/12/24 16:07
[2024-03-12] MEDS: Smz/Tmp Ds Tablet 1 TABLET PO (15:18)
[2024-03-12 15:20] VITALS: BP 152/81; PULSE 70; RESP 19; TEMP 36.6; O2SAT 100
== END 2024-03-12 16:07 | disposition home or self-care (01) ==
PROVIDERS: Emergency Provider Emergency Medicine; PCP Family Medicine; Visit Provider Emergency Medicine
DX: L03.115 Cellulitis of right lower limb (principal); J44.9 Chronic obstructive pulmonary disease, unspecified; I48.91 Unspecified atrial fibrillation; M79.89 Other specified soft tissue disorders; I25.10 Atherosclerotic heart disease of native coronary artery without angina pectoris; I10 Essential (primary) hypertension; I25.2 Old myocardial infarction; E78.00 Pure hypercholesterolemia, unspecified; Z95.5 Presence of coronary angioplasty implant and graft; Z79.01 Long term (current) use of anticoagulants; Z79.02 Long term (current) use of antithrombotics/antiplatelets; Z79.899 Other long term (current) drug therapy
CPT/HCPCS: 99282

== ENCOUNTER → 2024-03-13 | Outpatient (CLI) | payer MEDICARE, OTHER, SELFPAY ==
--- NOTE | 2024-03-13 12:24 | VDLE_ITS ---
Reason For Study: RLE Swelling RIGHT LEFT GSV is normal. FV is compressible, spontaneous, phasic, CFV is compressible, spontaneous, phasic, competent and demonstrates normal competent and demonstrates normal augmentation. augmentation. FV is compressible, spontaneous, phasic, competent and demonstrates normal augmentation. POP V is compressible, spontaneous, phasic, competent and demonstrates normal augmentation. T/P Trunk is compressible. PTV is compressible. RT PerV is compressible. Procedure This is a venous duplex using B-mode, color flow and spectral Doppler. Exam performed in department. The exam was diagnostic. A preliminary report was called and/or faxed to ED lens polisher hand. VL/Venous Duplex US, Unilateral Interpretation Summary Deep veins of the right lower extremity are patent and compressible segmentally . There is no evidence of right lower extremity deep vein thrombosis. Valvular competence allen ears intact within the proximal deep venous system on the right . The right great saphenous vein a ppears patent and compressible segmentally. The left femoral vein is patent and compressible. Ordering Physician: Ronald Churchill Referring Physician: Finn Ferrell Performed By: Yasmani Mcdonald RVT
== END | disposition home or self-care (01) ==
PROVIDERS: PCP Family Medicine; Referring Provider Emergency Medicine; Visit Provider Emergency Medicine
DX: R22.41 Localized swelling, mass and lump, right lower limb (principal)
CPT/HCPCS: 93971

== ENCOUNTER 2024-03-26 22:50 | Emergency (ER) | payer MEDICARE, OTHER, SELFPAY ==
[2024-03-26 22:50] VITALS: BP 166/83; PULSE 76; RESP 19; TEMP 36.4; O2SAT 100
--- NOTE | 2024-03-26 23:13 | EDS_ITS ---
HPI History of Present Illness Chief Complaint: Cellulitis Informant: patient Narrative Narrative: Patient is a 68-year-old male with past medical history of hypertension hyperlipidemia COPD and paroxysmal atrial fibrillation on Eliquis. He was seen on March 12 secondary to right foot pain and diagnosed with cellulitis and put on 10 days of antibiotics. He states he took the medication and his symptoms almost completely resolved. He reports however in the last 1 to 2 days she has had increased pain and swelling to the right foot and has concern for repeat infection. He also reports that roughly 5 days ago he was loading something into his truck when he slipped and fell and landed on that box causing pain to his right rib. He states that there is still pain with palpation and motion and he has concern for rib fracture as well and therefore comes in for evaluation [facility] Medical History Left rotator cuff tear History of echocardiogram Anxiety Excessive bleeding PONV (postoperative nausea and vomiting) Sleep apnea History of stress test Wears glasses Depression High cholesterol Gastric reflux Difficulty swallowing Non-smoker COPD (chronic obstructive pulmonary disease) Shortness of breath on exertion Leg cramps History of edema Hypertension Cardiology follow-up encounter History of heart attack History of atrial fibrillation Chest pain Sensorineural hearing loss, bilateral Dysphagia Epidermal inclusion cyst NSVT (nonsustained ventricular tachycardia) Screening for malignant neoplasm of intestine Cholelithiasis with chronic cholecystitis COPD (chronic obstructive pulmonary disease) CAD (coronary artery disease) Atrial fibrillation severe degenerative arthritis of right hip Rheumatoid arthritis Obstructive sleep apnea syndrome history of ischemic stroke HTN (hypertension) Hyperlipidemia Esophageal reflux Coronary atherosclerosis of [place] coronary vessel Home Medications ?Medication ?Instructions ?Recorded ?Last Taken ?Type minoxidil 10 mg tablet 5 mg PO BID blood pressure 10/05/19 05/20/23 History nitroglycerin 0.4 mg sublingual 0.4 mg sublingual Q5-15M PRN cp 10/05/19 Unknown History tablet clopidogrel 75 mg tablet (Plavix) 75 mg PO DAILY 09/09/21 05/19/23 History apixaban 5 mg tablet (Eliquis) 5 mg PO BID 10/30/21 05/18/23 History isosorbide mononitrate 30 mg 60 mg PO DAILY 01/07/22 05/20/23 History tablet,extended release 24 hr metoprolol succinate 50 mg 25 mg PO DAILY 04/07/23 05/20/23 History tablet,extended release 24 hr torsemide 20 mg tablet 20 mg PO DAILY 04/07/23 05/19/23 History metoprolol tartrate 50 mg tablet 25 mg PO QHS 05/19/23 05/20/23 History amiodarone 200 mg tablet 200 mg PO DAILY 05/20/23 05/20/23 History metoprolol tartrate 25 mg tablet 25 mg PO DAILY 03/26/24 Unknown History rosuvastatin 40 mg tablet 40 mg PO DAILY 03/26/24 Unknown History colchicine 0.6 mg tablet 0.6 mg PO BID 7 days #14 tabs 03/27/24 Unknown Rx oxycodone-acetaminophen 5 mg-325 1 tab PO Q6H PRN pain 3 days #12 03/27/24 Unknown Rx mg tablet (Percocet) tabs Allergy/AdvReac Type Severity Reaction Status Date / Time Penicillins Allergy Hives Verified 03/26/24 22:53 Family History Sister Cancer ovarian Diabetes Brother Diabetes Mother Heart disease Hypertension Father Prostate cancer Surgical History S/P PTCA (percutaneous transluminal coronary angioplasty) Hx of cholecystectomy History of colonoscopy (~2014) History of esophagogastroduodenoscopy (EGD) (~2014) History of knee joint replacement History of total right hip arthroplasty History of inguinal hernia repair History of left shoulder replacement History of total left hip arthroplasty History of coronary angioplasty History of heart artery stent History of cardiac catheterization Social History household members: none Smoking Status: Never smoker alcohol intake: never substance use type: does not use ROS ROS ED Constitutional Constitutional ED: Denies chills or fever(s) Eyes Eyes: Denies blurry vision or change in vision ENT ENT ED: Denies sore throat Cardiovascular Cardiovascular: Denies chest pain Respiratory/Chest Respiratory/Chest: Denies cough or dyspnea Gastrointestinal Gastrointestinal: Denies abdominal pain, diarrhea, nausea or vomiting Genitourinary Genitourinary ED: Denies dysuria Musculoskeletal Musculoskeletal: Reports other Details: Positive right rib pain and right foot pain Integumentary Reports other Details: Positive right foot swelling and redness ; Denies Abrasions or rash Neurologic Neurologic: Denies headache(s) Hematologic/Lymphatic Hematologic/Lymphatic: Reports easy bleeding and easy bruising EXAM Physical Exam Const Vital Signs: 03/26/24 22:50 Temperature 97.6 F L Temperature Source Temporal Pulse Rate 76 Respiratory Rate 19 H Blood Pressure 166/83 H Blood Pressure Mean 110 Pulse Ox 100 Oxygen Delivery Method Room Air Positive well nourished, well developed and obese General Appearance ED: well developed Nutritional Appearance: obese HEENT HEENT Narrative: Normocephalic atraumatic Eyes PERRL and EOMs intact bilaterally General Eye ED: Negative for scleral icterus Neck supple Chest Wall Chest Narrative: There is reproducible right anterior lateral chest wall pain on palpation rib regions 7-10 without bony deformity or crepitance noted Resp normal respiratory effort Resp Narrative: Breath sounds are diminished throughout with faint expiratory wheeze consistent with history of COPD but no signs of respiratory distress Cardio regular rate and regular rhythm GI normal to inspection, nondistended, normoactive bowel sounds, non-tender, non- distended and no masses GI Narrative: No pain on palpation and no abrasions or ecchymosis across the abdominal wall Auscultation: normoactive bowel sounds Palpation: soft Extremity Extremity Narrative: Right lower extremity is neurovascularly intact. There is faint asymmetric erythema to the dorsal aspect of the right foot with asymmetric warmth at this site as well. There is positive soft tissue swelling without obvious bony deformity or joint effusion. No crepitance palpated no lymphangitic streaking noted no obvious abscess formation. Remainder of the exam is normal Neuro oriented x3, CN's II-XII intact bilaterally and no sensory deficits noted Sensorium / Orientation: alert Motor Exam: strength 5/5 throughout Psych mental status grossly normal Skin Skin Narrative: Soft tissue changes to the dorsal aspect of the right foot as documented above MDM MDM MDM Narrative Medical decision making narrative: Patient arrived to the ER hypertensive but otherwise with stable vitals. He re ported right foot redness and pain without trauma. He had currently been treated with antibiotics. His exam however did not suggest cellulitis and was more consistent with potential gout. Chart review reveals that he already had a venous duplex on March 13 which was negative for DVT and he is on Eliquis which goes against blood clot. In order to try and differentiate between gout and cellulitis I did order basic blood work. Patient's white count is normal without left shift going against infection but his uric acid level is elevated which would correlate with an acute gout flare. The radiologist felt that there was mild loss of articulation which could be due to the erosive arthritis or potential infection. The patient is afebrile he does not have a white count or leukocytosis and his uric acid is elevated and therefore I feel this is most likely acute gout flare and not an infective process and therefore do not feel the need for CT scan at this time. The patient will be treated with colchicine to see if this helps resolve his symptoms but if they persist he can return to the ER for potential CT scan of his foot based on this x-ray read. Otherwise his rib x-rays do not reveal an acute fracture or pneumothorax. Therefore as the patient is hemodynamically stable without leukocytosis or left shift and his history and exam is most consistent with rib contusion and gout I feel the patient can be prescribed symptomatic care and is otherwise safe for discharge History & Record Review Discussion w/independent historian: Patient Lab Data Attestation: I reviewed the patient's lab results. Labs: Laboratory Results - last 24 hr 03/26/24 23:10 WBC 10.0 RBC 4.11 L Hgb 12.4 L Hct 37.0 L MCV 90.0 MCH 30.2 MCHC 33.5 RDW Std Deviation 45.7 H RDW Coeff of Santhosh 14.0 Plt Count 238 MPV 9.2 Immature Gran % (Auto) 0.400 Neut % (Auto) 69.8 Lymph % (Auto) 21.2 [place] % (Auto) 6.8 Eos % (Auto) 1.3 Baso % (Auto) 0.5 Absolute Neuts (auto) 7.0 Absolute Lymphs (auto) 2.12 Nucleated RBC % 0 Sodium 140 Potassium 4.0 Chloride 108 H Carbon Dioxide 25.0 Anion Gap 6 BUN 33 H Creatinine 1.57 H Estim Creat Clear Calc 69.76 Est GFR (MDRD) Af Amer 57 L Est GFR (MDRD) Non-Af 47 L BUN/Creatinine Ratio 21.0 H Glucose 139 H Uric Acid 9.7 H Calcium 9.0 Radiography Diagnostic Testing: Clinical Impression(s) from Imaging Studies Foot X-Ray 03/26/24 23:50 IMPRESSION: Soft tissue swelling. Narrowing of the middle cuneiform-second metatarsal articulation with loss of definition of the articular surfaces, possibly due to erosive arthritis versus infectious process. CT may be of benefit for further evaluation of this joint. No acute fracture or dislocation identified. Electronically Signed: Diaz Gross MD at 1:05 EST , Ribs w/Chest X-Ray 03/26/24 23:50 IMPRESSION: No acute right rib fracture identified. Electronically Signed: Diaz Gross MD at 1:08 EST , X-ray of the right foot as interpreted by the emergency medicine physician reveals no acute fracture dislocation or signs of osteomyelitis Right rib x-ray with 1 view chest as interpreted by the emergency medicine physician reveals remote/healed rib fractures without an acute fracture pneumothorax or pleural effusion Discharge Plan Triage Chief Complaint: Cellulitis ED Provider: George Pond Dx/Rx/DC Orders Clinical Impression: Gout flare, Contusion of rib, Hyperlipidemia, HTN (hypertension), Paroxysmal atrial fibrillation, Current use of chcf anticoagulation Instructions: ED Gout, ED Bruise, Rib, ED Gout Diet Prescriptions: New colchicine 0.6 mg tablet 0.6 mg PO BID 7 Days Qty: 14 0RF oxycodone-acetaminophen [Percocet] 5-325 mg tablet 1 tab PO Q6H PRN (Reason: pain) 3 Days Qty: 12 0RF No Action nitroglycerin 0.4 mg tablet, sublingual 0.4 mg SUBLINGUAL Q5-15M PRN (Reason: cp) Rx Instructions: do not exceed 3 doses per episode minoxidil 10 mg tablet 5 mg PO BID Patient Comments: TAKE ONE-HALF TABLET BY MOUTH TWICE DAILY Eliquis 5 mg tablet 5 mg PO BID metoprolol succinate 50 mg tablet extended release 24 hr 25 mg PO DAILY torsemide 20 mg tablet 20 mg PO DAILY clopidogrel [Plavix] 75 mg Tablet 75 mg PO DAILY isosorbide mononitrate 30 mg Tablet Extended Release 24 Hr 60 mg PO DAILY metoprolol tartrate 50 mg tablet 25 mg PO QHS amiodarone 200 mg tablet 200 mg PO DAILY Patient Comments: TAKE ONE TABLET BY MOUTH DAILY metoprolol tartrate 25 mg tablet 25 mg PO DAILY Patient Comments: TAKE ONE TABLET BY MOUTH TWICE DAILY rosuvastatin 40 mg tablet 40 mg PO DAILY Patient Comments: TAKE ONE TABLET BY MOUTH DAILY Primary Care Provider: Finn Ferrell Referrals: Finn Ferrell MD [Primary Care Provider] - Activity Restrictions/Additional Instructions: Please follow-up with your family doctor for repeat evaluation and return to the ER should you have any further concerns or worsening the symptoms despite treatment Print Language: Bangladeshi Disposition Disposition: Home, Self Care Discharge Date/Time: 03/27/24 01:02
[2024-03-26 23:15] VITALS: BMI 42.5
[2024-03-26] MEDS: Ondansetron 4 MG/2 ML Vial IV (23:19)
[2024-03-26] MEDS: Morphine 4 MG/ML Syringe IV (23:19)
[2024-03-26] MEDS: Colchicine 0.6 MG TABLET 1.2 MG PO (23:19)
[2024-03-26 23:28] LABS: Absolute Lymphocyte Count 2.12 X10^3/uL (0.83-4.51); Basophil# 0.05 X10^3/uL; Basophil% 0.5 % (0-1); Eosinophil# 0.13 X10^3/uL; Eosinophils% 1.3 % (0-5); Hemoglobin 12.4 g/dL (13.0-16.5); Lymphocyte # 2.12 X10^3/ul (0.83-4.51); Lymphocyte % 21.2 % (19-41); Mean Corp Hgb Conc 33.5 g/dL (32-36); Mean Corpuscular Hgb 30.2 pg (27.0-32.0); Mean Platelet Vol. 9.2 fl (6.2-12.0); Monocyte# 0.68 X10^3/uL; Monocyte% 6.8 % (0-10); NRBC Flagged by Analyzer 0 % (0-5); Neutrophil # 6.98 X10^3/uL (2.7-7.7); Neutrophil % 69.8 % (47-70); Platelet Count 238 K/mm3 (150-450); RBC Distribution Width SD 45.7 fl (35.1-43.9); Red Blood Count 4.11 M/mm3 (4.6-6.2)
[2024-03-26 23:47] LABS: Anion Gap 6 (5-15); BUN 33 mg/dL (7-18); Chloride 108 mmol/L (98-107); Creatinine, Serum 1.57 mg/dL (0.70-1.30); EST Glomerular Filtration Rate 47 mL/min (>60); Est Glom Filt Rate - Afr Amer 57 mL/min (>60); Estimated Creatinine Clearance 69.76 ml/min; Glucose 139 mg/dL (74-106); Sodium Level 140 mmol/L (136-145); Uric Acid 9.7 mg/dL (3.5-7.2)
--- NOTE | 2024-03-26 23:50 | RAD_ITS ---
EXAM: XR RIGHT RIBS AND AP CHEST, 3 OR MORE VIEWS CLINICAL INDICATION: pain TECHNIQUE: Frontal and oblique views of the right ribs and frontal view of the chest. COMPARISON: Portable chest radiograph of 12/05/2022. FINDINGS: LUNGS AND PLEURAL SPACES: Unremarkable. No consolidation or edema. No pneumothorax. No effusion. HEART: Coronary artery calcification and/or stent material. Heart size remains within normal limits with normal pulmonary vasculature. MEDIASTINUM: Stable mild elongation of the thoracic aorta. BONES/JOINTS: Right shoulder prosthesis. No evidence of displaced rib fractures. RAD/Ribs Uni Min 3V w/PA Chest IMPRESSION: No acute right rib fracture identified. Electronically Signed: Diaz Gross MD at 1:08 EST ,
--- NOTE | 2024-03-26 23:50 | RAD_ITS ---
EXAM: XR RIGHT FOOT COMPLETE, 3 OR MORE VIEWS CLINICAL INDICATION: pain TECHNIQUE: Frontal, lateral and oblique views of the right foot. COMPARISON: No relevant prior studies available. FINDINGS: BONES/JOINTS: Plantar and posterior calcaneal spurs are present. Degenerative spurring noted about the cuneiform-metatarsal articulations, as visualized on the lateral view. No acute fracture or dislocation. On the lateral view, a C- shaped osseous density overlies the superior calcaneus, suggesting tarsal coalition. On the AP and oblique view, there is narrowing of the middle cuneiform-second metatarsal articulation with loss of definition of the articular surfaces, possibly due to an erosive arthritis or infectious process. If the patient has pain related to this area, CT may be of benefit for further evaluation. SOFT TISSUES: Soft tissue swelling noted along the dorsal aspect of the foot. No radiopaque foreign body. VASCULATURE: Atherosclerotic vascular calcification is present. RAD/Foot min 3 Views IMPRESSION: Soft tissue swelling. Narrowing of the middle cuneiform-second metatarsal articulation with loss of definition of the articular surfaces, possibly due to erosive arthritis versus infectious process. CT may be of benefit for further evaluation of this joint. No acute fracture or dislocation identified. Electronically Signed: Diaz Gross MD at 1:05 EST ,
[2024-03-27] MEDS: oxyCODONE 5 MG Tablet PO (00:41)
[2024-03-27] MEDS: Colchicine 0.6 MG TABLET PO (00:41)
== END 2024-03-27 01:02 | disposition home or self-care (01) ==
PROVIDERS: Emergency Provider Emergency Medicine; PCP Family Medicine; Visit Provider Emergency Medicine
DX: M10.071 Idiopathic gout, right ankle and foot (principal); I48.0 Paroxysmal atrial fibrillation; S20.211A Contusion of right front wall of thorax, initial encounter; X58.XXXA Exposure to other specified factors, initial encounter; I10 Essential (primary) hypertension; I25.10 Atherosclerotic heart disease of native coronary artery without angina pectoris; I25.2 Old myocardial infarction; E78.00 Pure hypercholesterolemia, unspecified; Z95.5 Presence of coronary angioplasty implant and graft; Z79.01 Long term (current) use of anticoagulants; Z79.02 Long term (current) use of antithrombotics/antiplatelets; Z79.899 Other long term (current) drug therapy
CPT/HCPCS: 71101; 73630; 80048; 84550; 85025; 96374; 96375; 99284; A4216; J2405

== ENCOUNTER 2024-04-08 09:29 | Emergency (ER) | payer MEDICARE, OTHER, SELFPAY ==
[2024-04-08 09:29] VITALS: BP 155/75; PULSE 66; RESP 20; TEMP 36.5; O2SAT 96
--- NOTE | 2024-04-08 09:54 | ED.VIS.LOWEX ---
HPI History of Present Illness Chief Complaint: Lower Extremity Injury Narrative Narrative: 68-year-old male past medical history of DVT, on blood thinners, history of gout, presents with right foot pain that has had for over a week. Of note, he states he was seen in the emergency department approximately 7 days ago where he was diagnosed with gout. He was given colchicine in the emergency department and a prescription to take twice a day for the next 7 days. He started feeling better on Wednesday, and followed up with a primary care provider, 4 days ago. However, 3 days ago, he started having pain in his right foot again. He complains of pain across the top of his right foot with a little erythema in the first MTP joint. This is similar to his previous gouty exacerbations. He ran out of his colchicine that he had been given from the emergency department, and now states that his pain is worsening. He was told by the primary care provider/NALDO that he may need to be on maintenance medications. No fevers or chills, no other symptoms. [facility] Medical History Left rotator cuff tear History of echocardiogram Anxiety Excessive bleeding PONV (postoperative nausea and vomiting) Sleep apnea History of stress test Wears glasses Depression High cholesterol Gastric reflux Difficulty swallowing Non-smoker COPD (chronic obstructive pulmonary disease) Shortness of breath on exertion Leg cramps History of edema Hypertension Cardiology follow-up encounter History of heart attack History of atrial fibrillation Chest pain Sensorineural hearing loss, bilateral Dysphagia Epidermal inclusion cyst NSVT (nonsustained ventricular tachycardia) Screening for malignant neoplasm of intestine Cholelithiasis with chronic cholecystitis COPD (chronic obstructive pulmonary disease) CAD (coronary artery disease) Atrial fibrillation severe degenerative arthritis of right hip Rheumatoid arthritis Obstructive sleep apnea syndrome history of ischemic stroke HTN (hypertension) Hyperlipidemia Esophageal reflux Coronary atherosclerosis of [place] coronary vessel Home Medications ?Medication ?Instructions ?Recorded ?Last Taken ?Type minoxidil 10 mg tablet 5 mg PO BID blood pressure 10/05/19 05/20/23 History nitroglycerin 0.4 mg sublingual 0.4 mg sublingual Q5-15M PRN cp 10/05/19 Unknown History tablet clopidogrel 75 mg tablet (Plavix) 75 mg PO DAILY 09/09/21 05/19/23 History apixaban 5 mg tablet (Eliquis) 5 mg PO BID 10/30/21 05/18/23 History isosorbide mononitrate 30 mg 60 mg PO DAILY 01/07/22 05/20/23 History tablet,extended release 24 hr metoprolol succinate 50 mg 25 mg PO DAILY 04/07/23 05/20/23 History tablet,extended release 24 hr torsemide 20 mg tablet 20 mg PO DAILY 04/07/23 05/19/23 History metoprolol tartrate 50 mg tablet 25 mg PO QHS 05/19/23 05/20/23 History amiodarone 200 mg tablet 200 mg PO DAILY 05/20/23 05/20/23 History metoprolol tartrate 25 mg tablet 25 mg PO DAILY 03/26/24 Unknown History rosuvastatin 40 mg tablet 40 mg PO DAILY 03/26/24 Unknown History colchicine 0.6 mg tablet 0.6 mg PO BID 7 days #14 tabs 03/27/24 Unknown Rx oxycodone-acetaminophen 5 mg-325 1 tab PO Q6H PRN pain 3 days #12 03/27/24 Unknown Rx mg tablet (Percocet) tabs colchicine 0.6 mg tablet 0.6 mg PO BID Gout #14 tabs 04/08/24 Unknown Rx Allergy/AdvReac Type Severity Reaction Status Date / Time Penicillins Allergy Hives Verified 04/08/24 09:29 Family History Sister Cancer ovarian Diabetes Brother Diabetes Mother Heart disease Hypertension Father Prostate cancer Surgical History S/P PTCA (percutaneous transluminal coronary angioplasty) Hx of cholecystectomy History of colonoscopy (~2014) History of esophagogastroduodenoscopy (EGD) (~2014) History of knee joint replacement History of total right hip arthroplasty History of inguinal hernia repair History of left shoulder replacement History of total left hip arthroplasty History of coronary angioplasty History of heart artery stent History of cardiac catheterization Social History household members: none Smoking Status: Never smoker alcohol intake: never substance use type: does not use ROS ROS ED ROS Narrative Constitutional: No fever, no chills. HEENT: No sore throat. No neck pain. No loss of vision. No rhinorrhea. Cardiovascular: No chest pain. No palpitations. No pedal edema. Respiratory: No cough, no shortness of breath. Abdominal: No abdominal pain. No nausea. No vomiting. Genitourinary: No dysuria. No hematuria. Musculoskeletal: Positive right foot pain, across the top. Reports mild swelling of right foot. Neurologic: No headaches. No dizziness. No lightheadedness. Skin: No rash. Mild redness to right great toe. Psychiatric: No depression. No anxiety. EXAM Physical Exam Narrative Exam Narrative: Afebrile. Vital signs noted. Nontoxic-appearing. Regular rate and rhythm. Lungs clear to auscultation bilaterally. Abdomen soft nontender with normoactive bowel sounds. Examination of the right foot reveals mild tenderness to palpation with minimal erythema at the first MTP joint. Palpable dorsalis pedis pulse. No overt swelling. No crepitance. Const Vital Signs: 04/08/24 09:29 Temperature 97.7 F L Temperature Source Temporal Pulse Rate 66 Respiratory Rate 20 H Blood Pressure 155/75 H Blood Pressure Mean 101 Pulse Ox 96 MDM MDM MDM Narrative Medical decision making narrative: I reviewed the patient's prior records. Differential diagnosis includes gout exacerbation versus chronic foot pain versus fracture. He has had a recent Doppler study which was negative for DVT. Additionally, he is already on an anticoagulant. I reviewed his prior ED visit and he was given colchicine and 0.6 mg to take twice a day. I discussed with him that he may need to be on maintenance medication such as colchicine versus allopurinol for gouty exacerbation. He states he took a Percocet prior to arrival. He can continue this medication at home. I administered 1.2 mg of colchicine here in the emergency department, and wrote him a prescription for 0.6 mg #14. He will follow-up with his primary care provider. I do not feel he requires any laboratory work or imaging currently. Return instructions were reviewed. Disposition is discharged home in stable condition. History & Record Review Discussion w/independent historian: Patient Additional record(s) reviewed:: Prior outpatient record and Prior ED visit Discharge Plan Triage Chief Complaint: Lower Extremity Injury ED Provider: Ronald Churchill Dx/Rx/DC Orders Clinical Impression: Foot pain, right, Gout attack Instructions: ED Gout, ED Gout Diet Prescriptions: New colchicine 0.6 mg tablet 0.6 mg PO BID Qty: 14 0RF No Action nitroglycerin 0.4 mg tablet, sublingual 0.4 mg SUBLINGUAL Q5-15M PRN (Reason: cp) Rx Instructions: do not exceed 3 doses per episode minoxidil 10 mg tablet 5 mg PO BID Patient Comments: TAKE ONE-HALF TABLET BY MOUTH TWICE DAILY Eliquis 5 mg tablet 5 mg PO BID metoprolol succinate 50 mg tablet extended release 24 hr 25 mg PO DAILY torsemide 20 mg tablet 20 mg PO DAILY clopidogrel [Plavix] 75 mg Tablet 75 mg PO DAILY isosorbide mononitrate 30 mg Tablet Extended Release 24 Hr 60 mg PO DAILY metoprolol tartrate 50 mg tablet 25 mg PO QHS amiodarone 200 mg tablet 200 mg PO DAILY Patient Comments: TAKE ONE TABLET BY MOUTH DAILY metoprolol tartrate 25 mg tablet 25 mg PO DAILY Patient Comments: TAKE ONE TABLET BY MOUTH TWICE DAILY rosuvastatin 40 mg tablet 40 mg PO DAILY Patient Comments: TAKE ONE TABLET BY MOUTH DAILY colchicine 0.6 mg tablet 0.6 mg PO BID 7 Days Qty: 14 0RF oxycodone-acetaminophen [Percocet] 5-325 mg tablet 1 tab PO Q6H PRN (Reason: pain) 3 Days Qty: 12 0RF Primary Care Provider: Finn Ferrell Referrals: Finn Ferrell MD [Primary Care Provider] - 3-5 Days if not improving Activity Restrictions/Additional Instructions: Return with fever, increased pain, new or worsening symptoms. Is important for you to follow-up with your primary care provider regarding this gouty exacerbation as you may need to be on maintenance medications. Print Language: Welsh Disposition Disposition: Home, Self Care
[2024-04-08] MEDS: Colchicine 0.6 MG TABLET 1.2 MG PO (10:14)
[2024-04-08 10:15] VITALS: BP 134/78; PULSE 64; RESP 18; TEMP 36.6; O2SAT 99
== END 2024-04-08 10:16 | disposition home or self-care (01) ==
LOC: ED 10:07
PROVIDERS: Emergency Provider Emergency Medicine; PCP Family Medicine; Visit Provider Emergency Medicine
DX: M10.071 Idiopathic gout, right ankle and foot (principal); J44.9 Chronic obstructive pulmonary disease, unspecified; I48.91 Unspecified atrial fibrillation; G89.29 Other chronic pain; I25.10 Atherosclerotic heart disease of native coronary artery without angina pectoris; E78.00 Pure hypercholesterolemia, unspecified; I10 Essential (primary) hypertension; I25.2 Old myocardial infarction; Z95.5 Presence of coronary angioplasty implant and graft; Z79.01 Long term (current) use of anticoagulants; Z79.02 Long term (current) use of antithrombotics/antiplatelets; Z79.899 Other long term (current) drug therapy; Z86.718 Personal history of other venous thrombosis and embolism
CPT/HCPCS: 99282

== ENCOUNTER → 2024-04-11 | Outpatient (CLI) | payer MEDICARE, OTHER, SELFPAY ==
--- NOTE | 2024-04-11 11:30 | CT_ITS ---
STUDY: CT RIGHT FOOT REASON FOR EXAM: Male, 68 years old. Right foot pain. History of gout. RADIATION DOSAGE (If Supplied By Facility): CTDIvol = ( 19.84 ) mGy, DLP = ( 561.9 ) mGycm TECHNIQUE: Thin section transaxial imaging of the foot was obtained, with sagittal and coronal reconstructed images. Individualized dose optimization techniques were used for this CT. COMPARISON: Comparison is made with prior radiograph dated March 26, 2024. FINDINGS: Calcaneal spurs. Normal visualized tibiotalar, subtalar, talonavicular, calcaneocuboid. There is evidence of erosive changes at the second cuboid and second metatarsal joint with area of bony destruction at the level of the second cuboid bone and base of the second metatarsal. If the patient has a history of gout this may represent gouty arthritis. Otherwise, localized infection should be ruled out. Normal metatarsi. Normal metatarsophalangeal joint of the great toe. Normal tibial and fibular sesamoid bones. Normal interphalangeal joint of the great toe. Normal phalanges of the great toe. Normal second through fifth metatarsophalangeal joints. Normal interphalangeal joints and phalanges of the lesser toes. Diffuse soft tissue swelling. CT/Extremity Lower WITH Contrast IMPRESSION: Erosive changes at the level of the second cuboid and second metatarsophalangeal joint with bony destruction as described. Gout arthritis or infection should be ruled out. Diffuse soft tissue swelling. Electronically Signed: Beka Zuleta MD at 12:48 EST ,
== END | disposition home or self-care (01) ==
PROVIDERS: PCP Family Medicine; Referring Provider Nurse Practitioner Family; Visit Provider Nurse Practitioner Family
DX: M79.671 Pain in right foot (principal)
CPT/HCPCS: 73701

== ENCOUNTER → 2024-04-12 | Outpatient (CLI) | payer MEDICARE, OTHER, SELFPAY ==
[2024-04-12 18:00] LABS: PSA,Total - Annual Screen 1.67 ng/mL (0.00-4.00)
== END | disposition home or self-care (01) ==
LOC: MFPLAB 15:12
PROVIDERS: PCP Family Medicine; Visit Provider Family Medicine
DX: Z12.5 Encounter for screening for malignant neoplasm of prostate (principal)
CPT/HCPCS: 36415; 84153; G0103

== ENCOUNTER 2024-04-23 19:12 | Emergency (ER) | payer MEDICARE, OTHER, SELFPAY ==
[2024-04-23 19:14] VITALS: BP 160/85; PULSE 72; RESP 18; TEMP 36.9; O2SAT 94
--- NOTE | 2024-04-23 19:45 | EX.ED.DYSGE1 ---
HPI History of Present Illness Chief Complaint: Lower Extremity Injury Detail of Chief Complaint: Atraumatic pain right foot in the proximity of the MTP joint great toe Informant: patient and family Onset/Context/Timing Onset: - (Intermittent over the past 6 weeks) Context: Sudden Onset Timing: Continuous Quality: Pain and swelling Location: In the proximity of the MTP joint right great toe Current Severity: Moderate Maximum Severity: Severe Worsened by: Pressure, light touch Relieved by: Nothing Associated Symptoms Associated Symptoms: No constitutional symptoms. No symptoms of claudication. Narrative Narrative: Patient is a 68-year-old male. He has history of hypertension and rheumatoid arthritis. He also has history of obstructive sleep apnea. He was seen on March 12 and thought to have cellulitis.Patient was seen on March 27 and treated for gout. He returned on April 08 and was treated for gout. He was treated with colchicine. He saw his primary care physician was placed on prednisone. He completed a course of prednisone on Wednesday. He took 1 pill twice a day. Does not know the strength of the prednisone. He denies symptoms of claudication. He denies discoloration of his toes. He does have history of hypertension. He denies history of kidney disease. He denies history of diabetes. Review of records indicates he has history of hypertension, hyperlipidemia, GERD, coronary artery disease status post non-STEMI. Prior similar symptoms: Yes Recent Illness/Hospitalization: Yes [facility] Medical History Left rotator cuff tear History of echocardiogram Anxiety Excessive bleeding PONV (postoperative nausea and vomiting) Sleep apnea History of stress test Wears glasses Depression High cholesterol Gastric reflux Difficulty swallowing Non-smoker COPD (chronic obstructive pulmonary disease) Shortness of breath on exertion Leg cramps History of edema Hypertension Cardiology follow-up encounter History of heart attack History of atrial fibrillation Chest pain Sensorineural hearing loss, bilateral Dysphagia Epidermal inclusion cyst NSVT (nonsustained ventricular tachycardia) Screening for malignant neoplasm of intestine Cholelithiasis with chronic cholecystitis COPD (chronic obstructive pulmonary disease) CAD (coronary artery disease) Atrial fibrillation severe degenerative arthritis of right hip Rheumatoid arthritis Obstructive sleep apnea syndrome history of ischemic stroke HTN (hypertension) Hyperlipidemia Esophageal reflux Coronary atherosclerosis of [place] coronary vessel Home Medications ?Medication ?Instructions ?Recorded ?Last Taken ?Type minoxidil 10 mg tablet 5 mg PO BID blood pressure 10/05/19 05/20/23 History nitroglycerin 0.4 mg sublingual 0.4 mg sublingual Q5-15M PRN cp 10/05/19 Unknown History tablet clopidogrel 75 mg tablet (Plavix) 75 mg PO DAILY 09/09/21 05/19/23 History apixaban 5 mg tablet (Eliquis) 5 mg PO BID 10/30/21 05/18/23 History isosorbide mononitrate 30 mg 60 mg PO DAILY 01/07/22 05/20/23 History tablet,extended release 24 hr metoprolol succinate 50 mg 25 mg PO DAILY 04/07/23 05/20/23 History tablet,extended release 24 hr torsemide 20 mg tablet 20 mg PO DAILY 04/07/23 05/19/23 History metoprolol tartrate 50 mg tablet 25 mg PO QHS 05/19/23 05/20/23 History amiodarone 200 mg tablet 200 mg PO DAILY 05/20/23 05/20/23 History metoprolol tartrate 25 mg tablet 25 mg PO DAILY 03/26/24 Unknown History rosuvastatin 40 mg tablet 40 mg PO DAILY 03/26/24 Unknown History oxycodone-acetaminophen 5 mg-325 1 tab PO Q6H PRN pain 3 days #12 03/27/24 Unknown Rx mg tablet (Percocet) tabs hydrocodone-acetaminophen 5-325mg 1 tab PO Q6H PRN PRN Pain 3 days 04/23/24 Unknown Rx 5mg-325mg #10 TABLETS prednisone 20 mg tablet 40 mg (2 x 20 mg) PO DAILY #10 04/23/24 Unknown Rx TABLETS Allergy/AdvReac Type Severity Reaction Status Date / Time Penicillins Allergy Hives Verified 04/23/24 19:14 Family History Sister Cancer ovarian Diabetes Brother Diabetes Mother Heart disease Hypertension Father Prostate cancer Surgical History S/P PTCA (percutaneous transluminal coronary angioplasty) Hx of cholecystectomy History of colonoscopy (~2014) History of esophagogastroduodenoscopy (EGD) (~2014) History of knee joint replacement History of total right hip arthroplasty History of inguinal hernia repair History of left shoulder replacement History of total left hip arthroplasty History of coronary angioplasty History of heart artery stent History of cardiac catheterization Social History household members: none Smoking Status: Never smoker alcohol intake: never substance use type: does not use ROS ROS ED Constitutional Constitutional ED: Denies chills, fever(s), subjective, sweats or weight loss Musculoskeletal Musculoskeletal: Reports other Details: Swelling and pain right foot Integumentary Denies rash Neurologic Neurologic: Denies paresthesias or weakness Hematologic/Lymphatic Hematologic/Lymphatic: Reports systems reviewed and no addt'l complaints, except as documented and other Details: Patient is on anticoagulant and antithrombotic. He has a history of atrial fibrillation per review of old records. EXAM Physical Exam Const Vital Signs: 04/23/24 19:14 Temperature 98.4 F Temperature Source Temporal Pulse Rate 72 Respiratory Rate 18 Blood Pressure 160/85 H Blood Pressure Mean 110 Pulse Ox 94 Oxygen Delivery Method Room Air Positive well nourished and well developed Constitutional Narrative: BMI is greater than 40. General Appearance ED: well developed; Negative for cyanotic, diaphoretic or NAD HEENT Reports moist mucous membranes HEENT Narrative: Head is atraumatic normocephalic. Ears normal. Eyes PERRL and EOMs intact bilaterally General Eye ED: Negative for pale conjunctiva or scleral icterus Neck no lymphadenopathy, supple and no JVD Resp normal respiratory effort Cardio regular rate and regular rhythm Extremity Extremity Narrative: Patient has swelling of the right foot compared to the left. There is slight discoloration over the MTP joint of the great toe. There is significant tenderness to light touch. DP pulses palpable. He does have stigmata of peripheral arterial disease. Neuro oriented x3, CN's II-XII intact bilaterally and no sensory deficits noted Sensorium / Orientation: alert Motor Exam: strength 5/5 throughout Psych mental status grossly normal Skin Skin Narrative: Soft tissue swelling erythema in the proximity of the MTP joint of the right great toe MDM MDM MDM Narrative Medical decision making narrative: IV was established. He was medicated with ketorolac since he has no kidney disease, morphine and prednisone. Will reassess in 30 to 60 minutes. Uric acid level was not obtained because a normal uric acid level does not rule out gout nor does an elevated uric acid level confirm patient has gout. Clinically he has gout patient was asked if he has been compliant with the diet recommendation and he responded I am trying. Patient was reassessed at 2130. He had a 30 to 40% reduction of his pain. He was given additional dose of morphine. Was discharged prescription for prednisone. He also was given sheet regarding change in lifestyle with gout. Discharge Plan Triage Chief Complaint: Lower Extremity Injury ED Provider: Andre Sorensen Dx/Rx/DC Orders Clinical Impression: Acute gout, CAD (coronary artery disease), COPD (chronic obstructive pulmonary disease), Gastric reflux, Anticoagulant long-term use Instructions: ED Gout, ED Gout Diet Prescriptions: New hydrocodone-acetaminophen 5-325 mg tablet 1 tab PO Q6H PRN PRN (Reason: Pain) 3 Days Qty: 10 0RF prednisone 20 mg tablet 40 mg PO DAILY Qty: 10 0RF No Action nitroglycerin 0.4 mg tablet, sublingual 0.4 mg SUBLINGUAL Q5-15M PRN (Reason: cp) Rx Instructions: do not exceed 3 doses per episode minoxidil 10 mg tablet 5 mg PO BID Patient Comments: TAKE ONE-HALF TABLET BY MOUTH TWICE DAILY Eliquis 5 mg tablet 5 mg PO BID metoprolol succinate 50 mg tablet extended release 24 hr 25 mg PO DAILY torsemide 20 mg tablet 20 mg PO DAILY clopidogrel [Plavix] 75 mg Tablet 75 mg PO DAILY isosorbide mononitrate 30 mg Tablet Extended Release 24 Hr 60 mg PO DAILY metoprolol tartrate 50 mg tablet 25 mg PO QHS amiodarone 200 mg tablet 200 mg PO DAILY Patient Comments: TAKE ONE TABLET BY MOUTH DAILY metoprolol tartrate 25 mg tablet 25 mg PO DAILY Patient Comments: TAKE ONE TABLET BY MOUTH TWICE DAILY rosuvastatin 40 mg tablet 40 mg PO DAILY Patient Comments: TAKE ONE TABLET BY MOUTH DAILY oxycodone-acetaminophen [Percocet] 5-325 mg tablet 1 tab PO Q6H PRN (Reason: pain) 3 Days Qty: 12 0RF Primary Care Provider: Finn Ferrell Referrals: Finn Ferrell MD [Primary Care Provider] - 3-5 Days if not improving Print Language: Austrian Disposition Disposition: Home, Self Care
[2024-04-23] MEDS: Ketorolac 15 MG/ML Vial IV (19:50)
[2024-04-23] MEDS: Ondansetron 4 MG/2 ML Vial IV (19:51)
[2024-04-23] MEDS: predniSONE 20 MG Tablet 60 MG PO (19:51)
[2024-04-23] MEDS: Morphine 4 MG/ML Syringe IV ×2 (19:51→21:39)
--- NOTE | 2024-04-23 20:30 | ED.RN ---
PT C/O OF EPIGASTRIC PAIN. DR. RUEDA NOTIFIED. NO FURTHER ORDERS AT THIS TIME
[2024-04-23 21:40] VITALS: BP 160/85; PULSE 69; RESP 14; TEMP 36.9; O2SAT 94
== END 2024-04-23 21:48 | disposition home or self-care (01) ==
PROVIDERS: Emergency Provider Emergency Medicine; PCP Family Medicine; Visit Provider Emergency Medicine
DX: M10.071 Idiopathic gout, right ankle and foot (principal); J44.9 Chronic obstructive pulmonary disease, unspecified; I48.91 Unspecified atrial fibrillation; I25.10 Atherosclerotic heart disease of native coronary artery without angina pectoris; I25.2 Old myocardial infarction; I10 Essential (primary) hypertension; E78.00 Pure hypercholesterolemia, unspecified; K21.9 Gastro-esophageal reflux disease without esophagitis; Z95.1 Presence of aortocoronary bypass graft; Z95.5 Presence of coronary angioplasty implant and graft; Z79.01 Long term (current) use of anticoagulants; Z79.02 Long term (current) use of antithrombotics/antiplatelets; Z79.899 Other long term (current) drug therapy
CPT/HCPCS: 96374; 96375; 96376; 99285; A4216; J2405

== ENCOUNTER → 2024-04-28 | Outpatient (CLI) | payer MEDICARE, OTHER, SELFPAY ==
[2024-04-28 15:12] LABS: Absolute Lymphocyte Count 1.33 X10^3/uL (0.83-4.51); Absolute Neutrophil Count 11.5 X10^3/uL (2.0-7.7); Basophil# 0.06 X10^3/uL; Basophil% 0.4 % (0-1); Hematocrit 41.7 % (40-54); Hemoglobin 13.4 g/dL (13.0-16.5); Lymphocyte # 1.33 X10^3/ul (0.83-4.51); Lymphocyte % 9.8 % (19-41); Mean Corp Hgb Conc 32.1 g/dL (32-36); Mean Corpuscular Hgb 29.1 pg (27.0-32.0); Mean Corpuscular Volume 90.5 fL (80-94); Mean Platelet Vol. 9.6 fl (6.2-12.0); Monocyte# 0.53 X10^3/uL; Monocyte% 3.9 % (0-10); NRBC Flagged by Analyzer 0 % (0-5); Neutrophil # 11.49 X10^3/uL (2.7-7.7); Neutrophil % 84.2 % (47-70); Platelet Count 283 K/mm3 (150-450); RBC Distribution Width CV 14.9 % (11.6-14.6); RBC Distribution Width SD 48.7 fl (35.1-43.9); Red Blood Count 4.61 M/mm3 (4.6-6.2); White Blood Count 13.6 K/mm3 (4.4-11.0)
[2024-04-28 15:36] LABS: Vitamin B12 275 pg/mL (211-911); Vitamin D,25 Hydroxy 40.6 ng/mL
[2024-04-28 16:02] LABS: AST(SGOT) 12 U/L (15-37); Alanine Aminotransfer ALT/SGPT 40 U/L (16-61); Albumin, Serum 3.7 g/dL (3.2-5.0); Alkaline Phosphatase 101 U/L (45-117); Anion Gap 8 (5-15); BUN 31 mg/dL (7-18); BUN/Creat Ratio 20.4 RATIO (10-20); Calcium,Total 9.5 mg/dL (8.5-10.1); Chloride 105 mmol/L (98-107); Cholesterol 186 mg/dL (200); Creatinine, Serum 1.52 mg/dL (0.70-1.30); EST Glomerular Filtration Rate 49 mL/min (>60); Est Glom Filt Rate - Afr Amer 59 mL/min (>60); Ferritin 313 ng/mL (26-388); Globulin 3.7 g/dL (2.2-4.2); Glucose 130 mg/dL (74-106); High Density Lipoprotein 83 mg/dL; Iron 98 ug/dL (65-175); Iron Binding Capacity,Total 347 ug/dL (250-450); Magnesium 2.2 mg/dL (1.6-2.6); Phosphorus 3.5 mg/dL (2.5-4.9); Potassium 4.1 mmol/L (3.5-5.1); Protein, Total 7.4 g/dL (6.4-8.2); Sodium Level 139 mmol/L (136-145); Thyroid Stim Hormone (TSH) 0.922 uIU/mL (0.358-3.740); Triglycerides 141 mg/dL; Uric Acid 8.9 mg/dL (3.5-7.2); Very Low Density Lipoprotein 28 mg/dL (5-40)
[2024-04-28 16:09] LABS: Protein, Urine (Random) < 6.0 mg/dL (<11.9)
== END | disposition home or self-care (01) ==
LOC: MFPLAB 11:55
PROVIDERS: PCP Family Medicine; Referring Provider Family Medicine; Visit Provider Family Medicine
DX: I48.91 Unspecified atrial fibrillation (principal); N18.30 Chronic kidney disease, stage 3 unspecified; E78.5 Hyperlipidemia, unspecified; D63.1 Anemia in chronic kidney disease; E55.9 Vitamin D deficiency, unspecified; M10.9 Gout, unspecified
CPT/HCPCS: 36415; 80053; 80061; 82306; 82570; 82607; 82728; 82746; 83540; 83550; 83735; 83970; 84100; 84156; 84443; 84550; 85025

== ENCOUNTER → 2024-06-20 | Outpatient (CLI) | payer MEDICARE, OTHER, SELFPAY ==
--- NOTE | 2024-06-20 07:50 | EKG12_ITS ---
Test Reason : AFIB Blood Pressure : */* mmHG Vent. Rate : 57 BPM Atrial Rate : 57 BPM P-R Int : 188 ms QRS Dur : 144 ms QT Int : 484 ms P-R-T Axes : 41 52 -72 degrees QTcB Int : 471 ms Sinus bradycardia with occasional Premature ventricular complexes Possible Left atrial enlargement Left bundle branch block Abnormal ECG Confirmed by DEBBIE ALVARADO, ROCÍO ([id number]), continuity editor GIA LING ([id number]) on 06/21/2024 6:31:28 AM Referred By: JG DENT Confirmed By: ROCÍO LEWIS MD
--- NOTE | 2024-06-20 08:14 | RAD_ITS ---
PROCEDURE: CHEST 1 VIEW TECHNIQUE: Single frontal image including the chest and abdomen. COMPARISON: Chest x-ray of 03/26/2024. FINDINGS: Atrial fibrillation. RAD/Chest 1 View IMPRESSION: Partially visualized right shoulder prosthesis again seen. No interval osseous changes noted. Examination somewhat limited by patient motion. No evidence of pulmonary edema. No acute pneumonic process is seen. No pleural effusion or pneumothorax is noted. The cardiomediastinal silhouette is remarkable for a mildly tortuous aorta. No evidence of cardiomegaly. Reading Location: [id number]
[2024-06-20 08:47] LABS: Hemoglobin 13.6 g/dL (13.0-16.5); Mean Corp Hgb Conc 31.6 g/dL (32-36); Mean Corpuscular Hgb 29.1 pg (27.0-32.0); Mean Corpuscular Volume 91.9 fL (80-94); Mean Platelet Vol. 9.2 fl (6.2-12.0); Platelet Count 244 K/mm3 (150-450); RBC Distribution Width CV 14.7 % (11.6-14.6); RBC Distribution Width SD 49.7 fl (35.1-43.9); Red Blood Count 4.68 M/mm3 (4.6-6.2); White Blood Count 7.2 K/mm3 (4.4-11.0)
[2024-06-20 09:38] LABS: ALB/GLOB Ratio 0.9 RATIO (0.9-2.4); AST(SGOT) 18 U/L (15-37); Alanine Aminotransfer ALT/SGPT 37 U/L (16-61); Albumin, Serum 3.6 g/dL (3.2-5.0); Alkaline Phosphatase 105 U/L (45-117); Anion Gap 7 (5-15); BUN 21 mg/dL (7-18); BUN/Creat Ratio 16.4 RATIO (10-20); Calcium,Total 9.9 mg/dL (8.5-10.1); Chloride 107 mmol/L (98-107); Creatinine, Serum 1.28 mg/dL (0.70-1.30); EST Glomerular Filtration Rate 59 mL/min (>60); Est Glom Filt Rate - Afr Amer 72 mL/min (>60); Glucose 136 mg/dL (74-106); Potassium 3.9 mmol/L (3.5-5.1); Protein, Total 7.6 g/dL (6.4-8.2); Sodium Level 140 mmol/L (136-145)
== END | disposition home or self-care (01) ==
PROVIDERS: PCP Family Medicine
DX: I48.0 Paroxysmal atrial fibrillation (principal)
CPT/HCPCS: 36415; 71045; 80053; 84443; 85027; 93005

== ENCOUNTER → 2024-08-31 | Outpatient (CLI) | payer MEDICARE, OTHER, SELFPAY ==
[2024-08-31 12:46] LABS: Absolute Lymphocyte Count 1.47 X10^3/uL (0.83-4.51); Absolute Neutrophil Count 5.5 X10^3/uL (2.0-7.7); Basophil# 0.05 X10^3/uL; Basophil% 0.7 % (0-1); Eosinophil# 0.04 X10^3/uL; Eosinophils% 0.5 % (0-5); Hematocrit 42.6 % (40-54); Lymphocyte # 1.47 X10^3/ul (0.83-4.51); Lymphocyte % 19.5 % (19-41); Mean Corp Hgb Conc 32.9 g/dL (32-36); Mean Corpuscular Volume 91.4 fL (80-94); Mean Platelet Vol. 9.8 fl (6.2-12.0); Monocyte# 0.43 X10^3/uL; Monocyte% 5.7 % (0-10); NRBC Flagged by Analyzer 0 % (0-5); Neutrophil # 5.48 X10^3/uL (2.7-7.7); Neutrophil % 72.9 % (47-70); Platelet Count 271 K/mm3 (150-450); RBC Distribution Width CV 14.2 % (11.6-14.6); RBC Distribution Width SD 47.3 fl (35.1-43.9); Red Blood Count 4.66 M/mm3 (4.6-6.2); White Blood Count 7.5 K/mm3 (4.4-11.0)
[2024-08-31 13:18] LABS: PTHIN 54 pg/mL (11-61)
[2024-08-31 13:22] LABS: Protein, Urine (Random) 9.8 mg/dL (0.0-12.0); Protein:Creat Ratio 77 mg/g CRE (0-200)
[2024-08-31 13:38] LABS: ALB/GLOB Ratio 1.4 RATIO (0.9-2.4); AST(SGOT) 21 U/L (<=37); Alanine Aminotransfer ALT/SGPT 22 U/L (<=46); Albumin, Serum 4.3 g/dL (3.4-4.8); Alkaline Phosphatase 100 U/L (40-129); Anion Gap 12 (5-15); BUN 22 mg/dL (4-19); BUN/Creat Ratio 13.5 RATIO (10-20); Calcium,Total 9.7 mg/dL (7.6-11.0); Carbon Dioxide 26.1 mmol/L (21.0-32.0); Chloride 104 mmol/L (98-108); Cholesterol 212 mg/dL (<=200); Creatinine, Serum 1.59 mg/dL (0.70-1.20); EST Glomerular Filtration Rate 47 (>60); Globulin 3.1 g/dL (2.2-4.2); Glucose 144 mg/dL (70-99); High Density Lipoprotein 55 mg/dL; Low Density Lipoprotein Calc. 112 mg/dL; Potassium 4.1 mmol/L (3.3-5.1); Protein, Total 7.3 g/dL (5.9-8.4); Sodium Level 142 mmol/L (133-145); Total Bilirubin 0.98 mg/dL (0.00-1.30); Triglycerides 222 mg/dL; Very Low Density Lipoprotein 44 mg/dL (5-40); cholesterol:hdl ratio screen 3.83
[2024-08-31 14:13] LABS: Iron 79 ug/dL (65-175); Iron Binding Capacity,Total 289 ug/dL (250-450); Iron Binding Capacity,Unsat 210 ug/dL (228-428); Magnesium 2.2 mg/dL (1.5-2.2); Phosphorus 2.9 mg/dL (2.7-4.5)
[2024-08-31 14:19] LABS: Ferritin 473 ng/mL (37-417); Vitamin D,25 Hydroxy 51.4 ng/mL (30-100)
== END | disposition home or self-care (01) ==
LOC: MFPLAB 09:51
PROVIDERS: PCP Family Medicine; Referring Provider Family Medicine; Visit Provider Family Medicine
DX: N18.30 Chronic kidney disease, stage 3 unspecified (principal); I48.91 Unspecified atrial fibrillation; E61.1 Iron deficiency; E55.9 Vitamin D deficiency, unspecified; E78.5 Hyperlipidemia, unspecified
CPT/HCPCS: 36415; 80053; 80061; 82306; 82570; 82728; 83540; 83550; 83735; 83970; 84100; 84156; 85025

== ENCOUNTER → 2024-09-11 | Outpatient (CLI) | payer MEDICARE, OTHER, SELFPAY ==
[2024-09-11 09:46] LABS: Absolute Neutrophil Count 5.9 X10^3/uL (2.0-7.7); Basophil# 0.04 X10^3/uL; Basophil% 0.5 % (0-1); Eosinophil# 0.06 X10^3/uL; Eosinophils% 0.7 % (0-5); Hematocrit 42.1 % (40-54); Lymphocyte % 19.6 % (19-41); Mean Corp Hgb Conc 33.3 g/dL (32-36); Mean Corpuscular Hgb 30.2 pg (27.0-32.0); Mean Corpuscular Volume 90.7 fL (80-94); Mean Platelet Vol. 9.6 fl (6.2-12.0); Monocyte# 0.52 X10^3/uL; Monocyte% 6.4 % (0-10); NRBC Flagged by Analyzer 0 % (0-5); Neutrophil # 5.89 X10^3/uL (2.7-7.7); Neutrophil % 72.3 % (47-70); Platelet Count 249 K/mm3 (150-450); RBC Distribution Width CV 14.4 % (11.6-14.6); RBC Distribution Width SD 47.8 fl (35.1-43.9); Red Blood Count 4.64 M/mm3 (4.6-6.2); White Blood Count 8.2 K/mm3 (4.4-11.0)
[2024-09-11 11:31] LABS: ALB/GLOB Ratio 1.5 RATIO (0.9-2.4); AST(SGOT) 17 U/L (<=37); Alanine Aminotransfer ALT/SGPT 22 U/L (<=46); Albumin, Serum 4.3 g/dL (3.4-4.8); Alkaline Phosphatase 103 U/L (40-129); Anion Gap 11 (5-15); BUN 20 mg/dL (4-19); BUN/Creat Ratio 12.8 RATIO (10-20); Calcium,Total 9.2 mg/dL (7.6-11.0); Carbon Dioxide 24.9 mmol/L (21.0-32.0); Chloride 102 mmol/L (98-108); Creatinine, Serum 1.55 mg/dL (0.70-1.20); EST Glomerular Filtration Rate 48 (>60); Globulin 2.9 g/dL (2.2-4.2); Glucose 122 mg/dL (70-99); Potassium 4.1 mmol/L (3.3-5.1); Protein, Total 7.2 g/dL (5.9-8.4); Sodium Level 138 mmol/L (133-145); Total Bilirubin 0.92 mg/dL (0.00-1.30)
== END | disposition home or self-care (01) ==
PROVIDERS: PCP Family Medicine
DX: I20.0 Unstable angina (principal); I48.0 Paroxysmal atrial fibrillation; Z95.5 Presence of coronary angioplasty implant and graft; I25.10 Atherosclerotic heart disease of native coronary artery without angina pectoris
CPT/HCPCS: 36415; 80053; 84443; 85025

== ENCOUNTER 2024-11-14 23:13 | Emergency (ER) | payer MEDICARE, OTHER, SELFPAY ==
[2024-11-14 23:14] VITALS: BP 158/78; PULSE 97; RESP 15; TEMP 36.1; O2SAT 95
[2024-11-14 23:36] VITALS: BMI 39.3
--- NOTE | 2024-11-14 23:44 | ED.VIS.LOWEX ---
HPI History of Present Illness HPI Narrative: Patient presents with possible gout flareup in his left great toe that has been getting worse over the past 3 days. Patient denies any trauma or injury. Patient describes pain as sharp and burning. Patient states it is worse with walking. Patient states nothing seems to help with the pain. Patient denies any paresthesias or weakness. Patient denies any fevers but admits to some subjective chills. Patient states he has had similar gout attacks in his right foot in the past. Chief Complaint: Lower Extremity Injury Informant: patient Onset/Context/Timing Onset: Days (3) Context: Gradual Onset Timing: Continuous Quality of Pain: Sharp and Burning Location: Left great toe Worsened by: Walking Relieved by: Nothing Associated Symptoms Associated Symptoms: Negative for Parasthesia, Weakness or Loss of Funtion PFSH [facility] Medical History Left rotator cuff tear History of echocardiogram Anxiety Excessive bleeding PONV (postoperative nausea and vomiting) Sleep apnea History of stress test Wears glasses Depression High cholesterol Gastric reflux Difficulty swallowing Non-smoker COPD (chronic obstructive pulmonary disease) Shortness of breath on exertion Leg cramps History of edema Hypertension Cardiology follow-up encounter History of heart attack History of atrial fibrillation Chest pain Sensorineural hearing loss, bilateral Dysphagia Epidermal inclusion cyst NSVT (nonsustained ventricular tachycardia) Screening for malignant neoplasm of intestine Cholelithiasis with chronic cholecystitis COPD (chronic obstructive pulmonary disease) CAD (coronary artery disease) Atrial fibrillation severe degenerative arthritis of right hip Rheumatoid arthritis Obstructive sleep apnea syndrome history of ischemic stroke HTN (hypertension) Hyperlipidemia Esophageal reflux Coronary atherosclerosis of [place] coronary vessel Home Medications ?Medication ?Instructions ?Recorded ?Last Taken ?Type minoxidil 10 mg tablet 5 mg PO BID blood pressure 10/05/19 05/20/23 History nitroglycerin 0.4 mg sublingual 0.4 mg sublingual Q5-15M PRN cp 10/05/19 Unknown History tablet clopidogrel 75 mg tablet (Plavix) 75 mg PO DAILY 09/09/21 05/19/23 History apixaban 5 mg tablet (Eliquis) 5 mg PO BID 10/30/21 05/18/23 History isosorbide mononitrate 30 mg 60 mg PO DAILY 01/07/22 05/20/23 History tablet,extended release 24 hr metoprolol succinate 50 mg 25 mg PO DAILY 04/07/23 05/20/23 History tablet,extended release 24 hr torsemide 20 mg tablet 20 mg PO DAILY 04/07/23 05/19/23 History metoprolol tartrate 50 mg tablet 25 mg PO QHS 05/19/23 05/20/23 History amiodarone 200 mg tablet 200 mg PO DAILY 05/20/23 05/20/23 History metoprolol tartrate 25 mg tablet 25 mg PO DAILY 03/26/24 Unknown History rosuvastatin 40 mg tablet 40 mg PO DAILY 03/26/24 Unknown History oxycodone-acetaminophen 5 mg-325 1 tab PO Q6H PRN pain 3 days #12 03/27/24 Unknown Rx mg tablet (Percocet) tabs hydrocodone-acetaminophen 5-325mg 1 tab PO Q6H PRN PRN Pain 3 days 04/23/24 Unknown Rx 5mg-325mg #10 TABLETS prednisone 20 mg tablet 40 mg (2 x 20 mg) PO DAILY #10 04/23/24 Unknown Rx TABLETS Allergy/AdvReac Type Severity Reaction Status Date / Time Penicillins Allergy Hives Verified 11/14/24 23:14 Family History Sister Cancer ovarian Diabetes Brother Diabetes Mother Heart disease Hypertension Father Prostate cancer Surgical History S/P PTCA (percutaneous transluminal coronary angioplasty) Hx of cholecystectomy History of colonoscopy (~2014) History of esophagogastroduodenoscopy (EGD) (~2014) History of knee joint replacement History of total right hip arthroplasty History of inguinal hernia repair History of left shoulder replacement History of total left hip arthroplasty History of coronary angioplasty History of heart artery stent History of cardiac catheterization Social History household members: none Smoking Status: Never smoker alcohol intake: never substance use type: does not use ROS ROS ED Constitutional Constitutional ED: Reports chills; Denies fever(s) Eyes Eyes: Denies blurry vision or change in vision ENT ENT ED: Denies rhinorrhea or sore throat Cardiovascular Cardiovascular: Denies chest pain or palpitations Respiratory/Chest Respiratory/Chest: Denies cough or dyspnea Gastrointestinal Gastrointestinal: Reports nausea; Denies vomiting Genitourinary Genitourinary ED: Denies dysuria or hematuria Musculoskeletal Musculoskeletal: Denies back pain or neck pain Integumentary Denies abscess or rash Neurologic Neurologic: Denies headache(s) or weakness Allergic/Immunologic Allergic/Immunologic ED: Denies mouth swelling or urticaria EXAM Physical Exam Const Vital Signs: 11/14/24 23:14 Temperature 97 F L Temperature Source Temporal Pulse Rate 97 Respiratory Rate 15 Blood Pressure 158/78 H Blood Pressure Mean 104 Pulse Ox 95 Oxygen Delivery Method Room Air Positive well nourished and well developed General Appearance ED: well developed and NAD HEENT Reports moist mucous membranes Neck full ROM and supple Extremity Extremity Narrative: There is tenderness over the left MTP joints and distal metatarsals. There is no erythema or warmth noted. There is no ecchymosis noted. There is no deformity noted. Range of motion is limited in all motions of the toes of the left foot secondary to pain. Patient with intact to light touch in all digits. Capillary refill is less than 2 seconds in all digits. There is good pedal pulse noted. Strength is 5/5 in plantar and dorsiflexion of the left ankle and foot. Neuro oriented x3, CN's II-XII intact bilaterally, moves all extremities and no sensory deficits noted Sensorium / Orientation: alert Motor Exam: strength 5/5 throughout Psych mental status grossly normal MDM MDM MDM Narrative Medical decision making narrative: Differential diagnosis includes gout, dehydration, electrolyte abnormality, and degenerative arthritis. X-rays of the left foot will be obtained to assess for arthritis. CBC will be obtained to assess for leukocytosis and anemia. Basic metabolic profile will be obtained to assess for electrolyte abnormality renal function. Uric acid will be obtained to assess for gout. History & Record Review Additional record(s) reviewed:: Prior labs Lab Data Attestation: I reviewed the patient's lab results. Lab results narrative: CBC was reviewed. There is a mild leukocytosis of 15.2. The remainder is within normal limits. Basic metabolic profile was reviewed. Potassium was slightly elevated at 5.4, however, there is hemolysis noted. BUN was slightly elevated at 33 and creatinine was 2.38. These are somewhat increased from previous results. Uric acid was reviewed and was elevated at 9.4. Labs: Laboratory Results - last 24 hr 11/15/24 00:37 WBC 15.2 H RBC 4.66 Hgb 14.3 Hct 43.4 MCV 93.1 MCH 30.7 MCHC 32.9 RDW Std Deviation 49.6 H RDW Coeff of Santhosh 14.9 H Plt Count 279 MPV 9.6 Immature Gran % (Auto) 0.700 Neut % (Auto) 77.4 H Lymph % (Auto) 13.8 L Wise % (Auto) 7.0 Eos % (Auto) 0.6 Baso % (Auto) 0.5 Absolute Neuts (auto) 11.8 H Absolute Lymphs (auto) 2.11 Nucleated RBC % 0 Sodium 138 Potassium 5.4 H Chloride 102 Carbon Dioxide 20.3 L Anion Gap 15 BUN 33 H Creatinine 2.38 H Estim Creat Clear Calc 43.46 L Est GFR (MDRD) Non-Af 29 L BUN/Creatinine Ratio 13.7 Glucose 122 H Uric Acid 9.4 H Calcium 10.1 Radiography Diagnostic Testing: Clinical Impression(s) from Imaging Studies Foot X-Ray 11/15/24 00:50 IMPRESSION: Normal x-ray examination of the foot. Reading Location: [place] [id number] X-rays of the left foot were obtained. There are 3 views. On my independent interpretation, there is no acute fracture. There is no dislocation. There is no soft tissue swelling. Radiologist also interpreted the x-rays and agrees. Treatment and Re-Evaluation Narrative: Patient was given a dose of [place] here. Patient was given IV fluids. Patient was feeling better on reevaluation. Patient was advised of his findings. Patient states he has oxycodone at home. Patient states he does not need a refill for this. Patient was instructed to take as needed for severe pain. Patient was instructed to keep his foot elevated. Because of his increased BUN and creatinine, I do not feel that NSAIDs are indicated at this time. Patient was offered a walking boot or postop shoe. Patient declined these. Patient was instructed to follow-up with his primary care physician in 3 to 5 days. Patient was instructed to return if worse in any way. Patient understood and was agreeable with the plan. All questions were answered. Discharge Plan Triage Chief Complaint: Lower Extremity Injury ED Provider: Cooper Francis Dx/Rx/DC Orders Clinical Impression: Gouty arthritis of left foot, Chronic kidney disease (CKD) Instructions: ED Gout, ED Gout Diet Prescriptions: No Action nitroglycerin 0.4 mg tablet, sublingual 0.4 mg SUBLINGUAL Q5-15M PRN (Reason: cp) Rx Instructions: do not exceed 3 doses per episode minoxidil 10 mg tablet 5 mg PO BID Patient Comments: TAKE ONE-HALF TABLET BY MOUTH TWICE DAILY Eliquis 5 mg tablet 5 mg PO BID metoprolol succinate 50 mg tablet extended release 24 hr 25 mg PO DAILY torsemide 20 mg tablet 20 mg PO DAILY clopidogrel [Plavix] 75 mg Tablet 75 mg PO DAILY isosorbide mononitrate 30 mg Tablet Extended Release 24 Hr 60 mg PO DAILY metoprolol tartrate 50 mg tablet 25 mg PO QHS amiodarone 200 mg tablet 200 mg PO DAILY Patient Comments: TAKE ONE TABLET BY MOUTH DAILY metoprolol tartrate 25 mg tablet 25 mg PO DAILY Patient Comments: TAKE ONE TABLET BY MOUTH TWICE DAILY rosuvastatin 40 mg tablet 40 mg PO DAILY Patient Comments: TAKE ONE TABLET BY MOUTH DAILY oxycodone-acetaminophen [Percocet] 5-325 mg tablet 1 tab PO Q6H PRN (Reason: pain) 3 Days Qty: 12 0RF hydrocodone-acetaminophen 5-325 mg tablet 1 tab PO Q6H PRN PRN (Reason: Pain) 3 Days Qty: 10 0RF prednisone 20 mg tablet 40 mg PO DAILY Qty: 10 0RF Primary Care Provider: Finn Ferrell Referrals: Finn Ferrell MD [Primary Care Provider] - 3-5 Days Print Language: Jordanian Disposition Disposition: Home, Self Care
--- OUTSIDE RECORDS SUMMARY | 2024-11-15 00:11 | XMS RPT_ITS | CCD ---
Author Organization [facility] Care Team Providers Care Stemmer Machine Name Role Phone Miguel Calzada Primary Care Provider Marino Suarez Primary Care Provider Marino Suarez Primary Care Provider Vinayak Ontiveros Primary Care Provider [phone] Vinayak Ontiveros Primary Care Provider Dr. Terry Figueroa Referring Provider Dr. Terry Figueroa Other Provider FRANCE SPAIN Other Provider Dr. Irvin Kingston Attending Provider Vinayak Ontiveros Primary Care Provider [phone] Vinayak Ontiveros Primary Care Provider Dr. Vinayak Ontiveros Referring Provider Mark SMITH, CONDUIT INSTALLER-C Chrissy Cruz Attending Provider [phone] Dr. Finesse Vera Attending Provider [phone] Vinayak Ontiveros Primary Care Provider Dr. Vinayak Ontiveros Referring Provider Mark SMITH, CONDUIT INSTALLER-C Chrissy Cruz Attending Provider [phone] Dr. Jeramie Knox Attending Provider [phone] Lc Chavez Referring Provider Dr. Finesse Vera Attending Provider [phone] Vianyak Ontiveros Primary Care Provider Dr. Vinayak Ontiveros Referring Provider Dr. Dwayne Bess Attending Provider Nurse, Surgery Attending Provider Unavailable Mark CONDUIT INSTALLER, CONDUIT INSTALLER-Steven Cruz Attending Provider Referred, Self Referring Provider Unavailable Care Physician, No Primary Primary Care Provider Unavailable Dr. James Cornelius Admit Provider Dr. James Cornelius Referring Provider Dr. James Cornelius Other Provider Dr. Cooper Hayes Other Provider Dr. Xiao Medina Attending Provider Dr. Xiao Medina Other Provider Dr. Cooper Ward Other Provider Dr. Vinayak Ontiveros Primary Care Provider Dr. Vinayak Ontiveros Referring Provider Dr. Dwayne Bess Attending Provider Dr. Alexys Campos Attending Provider Dr. James Cornelius Referring Provider Finn Ferrell MD Primary Care Provider Care Physician, No Primary Referring Provider Un available Dr. Finn Ferrell Primary Care Provider Finn Ferrell MD Primary Care Provider Dr. Kraig Bautista Emergency Provider [phone] Henrietta Quinonez Attending Provider Care Physician, No Primary Primary Care Provider Unavailable Dr. Dwayne Bess Attending Provider Dr. Finn Ferrell Primary Care Provider Dr. Kraig Bautista Emergency Provider Dr. Henrietta Quinonez Attending Provider Dr. Finn Ferrell Primary Care Provider [phone] Dr. Finn Ferrell Referring Provider Dr. Dwayne Bess Attending Provider Dr. Dwayne Bess Other Provider Vinayak Ontiveros Primary Care Provider Desmond ALVARADO, Dr. Finn Miller Primary Care Provider JG DENT Attending Provider JG DENT Referring Provider [phone] Latrell ALVARADO, Dr. Martinez Attending Provider JG DENT Referring Provider Unavailable Desmond ALVARADO, Dr. Finn Miller Attending Provider Desmond ALVARADO, Dr. Finn Miller Referring Provider [phone] Finn Ferrell Primary Care Unavailable YVETTE BERNSTEIN Referring Unavailable YVETTE BERNSTEIN Attending Unavailable Finn Ferrell Primary Care Unavailable Finn Ferrell Referring Unavailable Finn Ferrell Attending Unavailable Finn Ferrell Primary Care Unavailable SchFinn mccollum Attending Unavailable Finn Ferrell Primary Care Unavailable Dwayne Bess Referring Unavailable Dwayne Bess Attending Unavailable Finn Ferrell Primary Care Unavailable Finn Ferrell Referring Unavailable Dwayne Bess Attending Unavailable Finn Ferrell Primary Care Unavailable SchFinn mccollum Referring Unavailable Jody Finesse Attending Unavailable Finn Ferrell Primary Care Unavailable YVETTE BERNSTEIN Referring Unavailable Juan Sams Attending UnavailFinn Medina Primary Care Unavailable Reodica Ronald Attending Unavailable SchFinn mccollum Primary Care Unavailable YVETTE BERNSTEIN Attending Unavailable YVETTE BERNSTEIN Referring Unavailable SchFinn mccollum Primary Care Unavailable SchFinn mccollum Attending Unavailable Finn Ferrell Primary Care Unavailable Reodica, Ronald Referring Unavailable Reodica Ronald Attending Unavailable SchFinn mccollum Referring Unavailable SchFinn mccollum Attending Unavailable SchFinn mccollum Primary Care Unavailable SchFinn mccollum Primary Care Unavailable Cheryl CONDUIT INSTALLER, Jenniffer Referring Unavailable Cheryl CONDUIT INSTALLER, Jenniffer Attending Unavailable Finn Ferrell Primary Care Unavailable SHELLYADES, YVETTE Referring Unavailable SHELLYADESYVETTE Attending Unavailable Finn Ferrell Primary Care Unavailable George Pond Attending Unavailable Finn Ferrell Primary Care Unavailable Andre Rueda Attending Unavailable Finn Ferrell Primary Care Unavailable Ronald Churchill Attending Unavailable Bernice Zarate RN Unavailable Unavailable FRANCE SPAIN Attending Unavailable FINN FERRELL Primary Care Unavailable FRANCE SPAIN Attending Unavailable FINN FERRELL Primary Care Unavailable FRANCE SPAIN Attending Unavailable FRANCE SPAIN Referring Unavailable FINN FERRLEL Primary Care Unavailable FRANCE SPAIN Attending Unavailable FRANCE SPAIN Referring Unavailable FINN FERRELL Primary Care Unavailable FRANCE SPAIN Attending Unavailable DESMOND, FINN Primary Care Unavailable DOMINGUEZ ORTEGA Attending Unavailable DESMOND, FINN Primary Care Unavailable FRANCE SPAIN Attending Unavailable FINN FERRELL Primary Care Unavailable FINN FERRELL Primary Care Unavailable DOMINGUEZ ORTEGA Attending Unavailable DOMINGUEZ ORTEGA Admitting Unavailable Allergies Allergy Classification Reported Allergen(s) Allergy Type Date of Onset Reaction(s) Facility Penicillins (antibiotic) (2 sources) Penicillins Drug Allergy 6 [facility] (11 sources) Penicillins Propensity to adverse reactions to drug 6 [place], [place] (20 sources) Penicillins Allergy to substance 2 [facility] (20 sources) Penicillins Drug Intolerance 5 [facility] (1 source) Penicillins Drug allergy (disorder) 4 [facility] Repository Medications Current Medications Medication Drug Class(es) Dates Sig (Normalized) Sig (Original) acetaminophen 325 mg / HYDROcodone bitartrate 5 mg oral tablet (20 sources) Opioid Agonist Start: 04-23-2024 take 1 tablet by mouth every six hours as needed for pain Hydrocodone-Aceta minophen 5-325 mg tablet Active 1 {tbl} PO EVERY 6 HOURS NEEDED as needed for Pain 10 3 April 23, 2024 Start: 10-30-2019 End: 11-01-2019 Hydrocodone-Acetaminophen 1 TABLET tablet Discontinued 1 {tbl} PO EVERY 6 HOURS NEEDED as needed for Pain 5 2 October 30, 2019 October 31, 2019 12:00am November 01, 2019 12:02am Start: 10-30-2019 End: 11-01-2019 take 1 tablet by mouth every six hours as needed Hydrocodone-Acetaminophen Discontinued 1 TABLET PO EVERY 6 HOURS NEEDED 5 2 October 30, 2019 October 31, 2019 11:02pm acetaminophen 325 mg / oxyCODONE hydrochloride 5 mg oral tablet (1 source) Opioid Agonist Start: 03-27-2024 take 1 tablet by mouth every six hours as needed for pain Oxycodone-Acetaminophen (Percocet) 5-325 mg tablet Active 1 {tbl} PO EVERY 6 HOURS as needed for pain 12 3 March 27, 2024 amiodarone hydrochloride 200 mg oral tablet (20 sources) Antiarrhythmic Start: 05-20-2023 End: 09-15-2024 take 1 tablet by mouth once daily in the morning amiodarone (Pacerone) 200 MG tablet Take 1 tablet (200 mg) by mouth daily. 90 tablet 1 10/02/2024 9:56 AM EDT 06/06/2024 Active Start: 04-01-2020 End: 04-07-2023 take 1 tablet by mouth once daily Amiodarone 200 MG tablet Discontinued 200 mg PO DAILY April 01, 2020 1:00am April 07, 2023 10:22am Start: 10-05-2019 End: 10-05-2019 Amiodarone 200 mg tablet Discontinued NMA PO October 05, 2019 12:00am October 05, 2019 7:53am Start: 09-14-2019 End: 10-05-2019 Amiodarone Discontinued EACH PO October 04, 2019 11:00pm October 05, 2019 6:53am Start: 04-11-2018 take 200 mg by mouth once gerry y 200 mg, Oral, DAILY, First dose on Wed09/05/19 at 1300 amLODIPine 5 mg oral tablet (20 sources) Dihydropyridine Calcium Channel Delia Start: 07-06-2024 End: 07-06-2025 take 1 tablet by mouth twice daily amLODIPine (Norvasc) 5 MG tablet Take 1 tablet (5 mg) by mouth 2 times daily. 180 tablet 3 07/10/2024 11:31 AM EST 07/06/2024 09/28/2024 Discontinued (Dose adjustment) Start: 06-30-2023 End: 09-28-2025 take 1 tablet by mouth once daily amLODIPine (Norvasc) 5 MG tablet Take 1 tablet (5 mg) by mouth daily. 09/28/2024 09/28/2025 Active Start: 01-27-2022 End: 12-08-2022 take 10 mg by mouth once daily 10 mg, Oral, Daily, Fir st dose on 12/06/22 at 1045 Start: 04-15-2021 take 1 tablet by cary th once daily amLODIPine (NORVASC) 10 MG tablet Take 1 tablet by mouth daily 90 tablet 3 04/15/2021 Active Start: 10-05-2019 End: 10-05-2019 Amlodipine 5 mg tablet Disco ntinued PO October 05, 2019 12:00am October 05, 2019 7:53am Start: 10-05-2019 End: 10-05-2019 Amlodipine 10 mg tablet Disc ontinued PO October 05, 2019 12:00am October 05, 2019 7:52am Start: 10-05-2019 End: 10-05-2019 Amlodipine Discontinued PO 2019 11:00pm October 05, 2019 6:52am Start: 09-06-2019 End: 04-07-2023 take 1 tablet by mouth once daily Amlodipine (Norvasc) 5 mg tablet Discontinued 5 mg PO DAILY October 05, 2019 12:00am April 07, 2023 10:22am Start: 08-15-2019 End: 09-08-2019 take 1 tablet by mouth once daily amLODIPine (NORVASC) 10 MG tablet Indications: Essential hypertension Take 1 tablet by mouth daily 90 tablet 3 08/15/2019 09/08/2019 Discontinued (Stop Taking at Discharge) apixaban 5 mg oral tablet (20 sources) Factor Xa Inhibitor Start: 12-23-2020 End: 06-06-2025 take 1 tablet by mouth twice daily in the morning apixaban (Eliquis) 5 MG tablet Indications: Paroxysmal atrial fibrillation (HCC) Take 1 tablet (5 mg) by mouth 2 times daily. 180 tablet 3 10/02/2024 9:56 AM EDT 06/06/2024 06/06/2025 Active Start: 10-24-2019 End: 10-31-2020 take 1 tablet by mouth twice daily Apixaban 5 MG tablet Discontinued 5 mg PO TWICE A DAY October 24, 2019 12:00am October 31, 2020 2:59pm Start: 04-11-2018 End: 09-09-2019 take 5 mg by mouth twice daily 5 mg, Oral, 2 TIMES VIOLET LY, First dose on Wed09/15/19 at 0900 ANTICOAGULANT benzonatate 100 mg oral capsule (5 sources) Non-narcotic Antitussive Start: 12-06-2022 End: 12-15-2022 take 1 capsule by mouth three times daily as needed for cough benzonatate (Tessalon) 100 MG capsule Take 1 capsule (100 mg) by mouth 3 times daily as needed for cough for up to 7 days. Do not crush or chew. 20 capsule 0 12/08/2022 12/15/2022 Active 28 actuat budesonide 0.16 mg/actuat / formoterol fumarate 0.0048 mg/actuat / glycopyrrolate 0.009 mg/actuat metered dose inhaler (1 source) Corticosteroid, beta2-Adrenergic Agonist Start: 04-02-2021 take 2 puff(s) by inhalation twice daily Budeson-Glycopyrr ol-Formoterol 160-9-4.8 MCG/ACT AERO Indications: Moderate persistent asthma without complication Inhale 2 puffs into the lungs 2 times daily 3 each 3 04/02/2021 Active clopidogrel 75 mg oral tablet (20 sources) [id number] Platelet Inhibitor Start: 06-06-2024 End: 09-15-2024 take 1 tablet by mouth once daily in the morning clopidogrel (Plavix) 75 MG tablet Indications: CAD in [place] artery , Presence of coronary angioplasty implant and graft Take 1 tablet (75 mg) by mouth daily. 90 tablet 3 10/02/2024 9:56 AM EDT 06/06/2024 Active Start: 09-09-2021 End: 03-14-2024 take 1 tablet by mouth once daily in the evening clopidogrel (Plavix) 75 MG tablet Indications: CAD in [place] artery , Presence of coronary angioplasty implant and graft Take 1 tablet (75 mg) by mouth daily. 90 tablet 3 06/20/2024 1:07 PM EST 06/06/2024 Active Start: 11-12-2020 take 1 tablet by cary th once daily clopidogrel (PLAVIX) 75 MG tablet Indications: Presence of coronary angioplasty implant and graft Take 1 tablet by mouth daily 90 tablet 3 11/12/2020 Active Start: 09-03-2014 End: 10-31-2020 take 1 tablet by mouth once daily Clopidogrel 75 MG tablet Discontinued 75 mg PO DAILY September 03, 2014 12:00am October 31, 2020 2:58pm eplerenone 25 mg oral tablet (2 sources) Aldosterone Antagonist Start: 09-16-2019 take 1 tablet by mouth once daily eplerenone (INSPRA) 25 MG tablet Take 1 tablet by mouth daily 30 tablet 3 09/16/2019 Active Start: 09-15-2019 eplerenone (IN SPRA) tablet 25 mg ezetimibe 10 mg oral tablet (20 sources) Dietary Cholesterol Absorption Inhibitor Start: 09-28-2024 End: 09-28-2025 take 1 tablet by mouth once daily ezetimibe (Zetia) 10 MG tablet Take 1 tablet (10 mg) by mouth daily. 90 tablet 3 09/28/2024 09/28/2025 Active Start: 10-31-2020 End: 12-29-2021 take 1 tablet by mouth once daily Ezetimibe 10 mg Tablet Discontinued 10 mg PO DAILY October 31, 2020 12:00am December 29, 2021 9:56am Start: 10-05-2019 End: 10-05-2019 Ezetimibe 10 mg tablet Disco ntinued NMA PO October 05, 2019 12:00am October 05, 2019 7:53am Start: 10-05-2019 End: 10-05-2019 Ezetimibe Discontinued EACH PO October 04, 2019 11:00pm October 05, 2019 6:53am Start: 06-07-2019 take 10 mg by mouth once daily 10 mg, Oral, DAILY, First dose on Wed09/15/19 at 0900 30 actuat fluticasone furoate 0.1 mg/actuat / umeclidinium 0.0625 mg/actuat / vilanterol 0.025 mg/actuat dry powder inhaler (2 sources) Anticholinergic, Corticosteroid, beta2-Adrenergic Agonist Start: 10-29-2020 take 1 puff(s) by inhalation once daily yjnhxtktzun-kcasewmym-hurarn (TRELEGY ELLIPTA) 100-62.5-25 MCG/INH AEPB Inhale 1 puff into the lungs daily 2 each 0 10/29/2020 Active Fluticasone-Um eclidin-Vilant (TRELEGY ELLIPTA) 200-62.5-25 MCG/INH AEPB (4 sources) Start: 11-07-2020 End: 03-18-2021 take 1 puff(s) by inhalation once daily Ptkiowkmiyk-Jgzwbhjzc-Tiahdl (TRELEGY ELLIPTA) 200-62.5-25 MCG/INH AEPB Indications: COPD with asthma (HCC) Inhale 1 puff into the lungs daily 3 each 3 11/07/2020 03/18/2021 Discontinued (Stop Taking at Discharge) Start: 11-07-2020 End: 03-18-2021 take 1 puff(s) by inhalation once daily Eyguuokegvd-Qazjoaobk-Ehlydq (TRELEGY ELLIPTA) 200-62.5-25 MCG/INH AEPB Indications: COPD with asthma (HCC) Inhale 1 puff into the lungs daily Lot nm8e exp 9-22 2 each 0 11/07/2020 03/18/2021 Discontinued (Stop Taking at Discharge) Start: 11-07-2020 take 1 puff(s) by inhalation once daily Xdlunftjrjw-Uqynmaskc-Kzdcqu (TRELEGY ELLIPTA) 200-62.5-25 MCG/INH AEPB Indications: COPD with asthma (HCC) Inhale 1 puff into the lungs daily 3 each 3 11/07/2020 Active Start: 11-07-2020 take 1 puff(s) by inhalation once daily Ocjmfduzwmo-Mtsnxbjqr-Imsmsx (TRELEGY ELLIPTA) 200-62.5-25 MCG/INH AEPB Indications: COPD with asthma (HCC) Inhale 1 puff into the lungs daily Lot nm8e exp 9-22 2 each 0 11/07/2020 Active 60 actuat formoterol fumarate 0.005 mg/actuat / mometasone furoate 0.1 mg/actuat metered dose inhaler (1 source) Corticosteroid, beta2-Adrenergic Agonist Start: 03-18-2021 take 2 puff(s) by inhalation twice daily mometasone-formoterol (DULERA) 100-5 MCG/ACT inhaler Inhale 2 puffs into the lungs 2 times daily 1 each 0 03/18/2021 Active Start: 03-18-2021 take 2 puff(s) by in halation twice daily mometasone-formoterol (DULERA) 100-5 MCG/ACT inhaler Inhale 2 puffs into the lungs 2 times daily 1 each 0 03/18/2021 Active furosemide 40 mg oral tablet (20 sources) Loop Diuretic Start: 09-24-2021 take 1 tablet by mouth twice daily furosemide (Lasix) 40 MG tablet Take 1 tablet by mouth 2 times daily. Starting last week 0 09/24/2021 Active Start: 10-05-2019 End: 10-27-2022 take 1 tablet by mouth once daily Furosemide 40 mg tablet Discontinued 40 mg PO DAILY October 05, 2019 7:52am October 27, 2022 8:22am Start: 10-05-2019 End: 10-05-2019 Furosemide 40 mg tablet Disc ontinued NMA PO October 05, 2019 12:00am October 05, 2019 7:53am Start: 10-05-2019 End: 10-05-2019 Furosemide Discontinued EACH PO October 04, 2019 11:00pm October 05, 2019 6:53am Start: 05-26-2019 take 40 mg by mouth once daily 40 mg, Oral, DAILY, First dose on Wed09/15/19 at 0900 magnesium hydroxide 80 mg/ml oral suspension (1 source) Start: 09-08-2019 magnesium hydroxide (MILK OF MAGNESIA) 400 MG/5ML suspension 30 mL 24 hr metoprolol succinate 50 mg extended release oral tablet (20 sources) beta-Adrenergic Edlia Start: 09-15-2024 End: 09-15-2025 take 1 tablet by mouth once daily metoprolol succinate XL (Toprol-XL) 50 MG 24 hr tablet Take 1 tablet (50 mg) by mouth daily. Do not crush or chew. 30 tablet 11 09/15/2024 11:04 AM EDT 09/15/2024 09/15/2025 Active Start: 09-14-2024 End: 09-15-2024 take 50 mg by mouth twice daily 50 mg, Oral, 2 times d aily, First dose on Wed09/14/24 at 2100, Hold for HR Start: 08-24-2024 End: 08-24-2025 take 1 tablet by mouth twice daily metoprolol tartrate (Lopressor) 50 MG tablet Take 1 tablet (50 mg) by mouth 2 times daily. 60 tablet 11 08/24/2024 09/15/2024 Discontinued (Stop taking at discharge) Start: 03-26-2024 take 1 tablet by cayr once daily Metoprolol Tartrate 25 mg tablet Active 25 mg PO DAILY March 26, 2024 12:00am Start: 05-19-2023 Metoprolol Tar trate 50 mg tablet Active 25 mg PO AT BEDTIME May 19, 2023 1:00am Start: 05-19-2023 take 25 mg by mouth at bedtime Metoprolol Tartrate Active 25 MG PO AT BEDTIME May 19, 2023 12:00am Start: 04-07-2023 take 2 tablets by mo [facility] once daily Metoprolol Succinate 50 mg tablet extended release 24 hr Active 25 mg PO DAILY April 07, 2023 1:00am Start: 04-07-2023 take 25 mg by mouth once daily Metoprolol Succinate Active 25 MG PO DAILY April 07, 2023 12:00am Start: 12-07-2022 End: 06-06-2025 take 1 tablet by mouth twice daily metoprolol tartrate (Lopressor) 25 MG tablet Indications: CAD in [place] artery Take 1 tablet (25 mg) by mouth 2 times daily. 180 tablet 3 06/06/2024 08/24/2024 Discontinued (Dose adjustment) Start: 04-01-2020 End: 12-08-2022 take 1 tablet by mouth twice daily Metoprolol Tartrate 50 MG tablet Discontinued 50 mg PO TWICE A DAY April 01, 2020 1:00am December 29, 2021 9:56am Start: 09-07-2019 End: 09-07-2019 metoprolol (LOPRESSOR) 5 MG/ 5ML injection Start: 09-05-2019 metoprolol (LO PRESSOR) injection 5 mg Start: 05-26-2019 take 50 mg by mouth twice gerry y 50 mg, Oral, 2 TIMES DAILY, First dose on Wed09/15/19 at 0900 Start: 09-03-2014 End: 10-05-2019 take 1 tablet by mouth twice daily Metoprolol Tartrate 25 MG tablet Discontinued 25 mg PO TWICE A DAY September 03, 2014 12:00am October 05, 2019 7:50am mometasone-formoterol (DULERA) 100-5 MCG/ACT inhaler 2 puff (1 source) Start: 03-17-2021 mometasone-formoterol (DULERA) 100-5 MCG/ACT inhaler 2 puff nitroglycerin 0.4 mg sublingual tablet (20 sources) Nitrate Vasodilator Start: 12-06-2022 End: 12-08-2022 0.4 mg, SubLINGual, Every 5 min PRN, chest pain, Starting on 12/06/22 at 1033 May administer up to 3 doses per episode. Start: 10-05-2019 nitroglycerin (Nitrostat) 0.4 MG SL tablet Indications: Atherosclerotic heart disease of [place] coronary artery without angina pectoris Place 1 tablet under the tongue every 5 minutes as needed for Chest pain. If no relief after 3 tablets, call 9-1-1 immediately. 25 tablet 3 11/02/2022 Active Start: 09-15-2019 nitroglycerin (NITRO-BID) 2 % ointment 1 inch Start: 02-03-2018 End: 07-06-2025 nitroglycerin (Nitrostat) 0. [address] 1 tablet (0.4 mg) under the tongue every 5 minutes as needed for chest pain. May repeat dose every 5 minutes for up to 3 doses total. 100 tablet 11 07/10/2024 11:31 AM EST 07/06/2024 07/06/2025 Active omeprazole 40 mg delayed release oral capsule (2 sources) Proton Pump Inhibitor Start: 01-28-2016 omeprazole (PRILOSEC) 40 MG delayed release capsule daily 5 01/28/2016 Active oxyCODONE hydrochloride 5 mg oral tablet (14 sources) Opioid Agonist Start: 08-21-2022 take 10 mg by mouth every six hours as needed Oxycodone Active 10 MG PO EVERY 6 HOURS NEEDED 42 August 21, 2022 predniSONE 20 mg oral tablet (1 source) Start: 04-23-2024 take 2 tablets by mouth once daily Prednisone 20 mg tablet Active 40 mg PO DAILY April 23, 2024 1:00am Promethazine (1 source) Phenothiazine Start: 09-15-2019 promethazine (PHENERGAN) tablet 12.5 mg 12 hr ranolazine 500 mg extended release oral tablet (20 sources) Anti-anginal Start: 04-07-2023 End: 03-26-2024 take 1 tablet by mouth twice daily Ranolazine (Ranexa) 1,000 mg tablet extended release 12 hr Discontinued 500 mg PO TWICE A DAY April 07, 2023 1:00am March 27, 2024 12:16am Start: 03-18-2023 End: 03-17-2024 take 1 tablet by mouth twice daily ranolazine (Ranexa) 1000 MG 12 hr tablet Take 1 tablet (1,000 mg) by mouth 2 times daily. Do not crush, chew, or split. 60 tablet 11 03/18/2023 06/15/2023 Discontinued (Dose adjustment) Start: 03-01-2023 End: 07-06-2025 take 1 tablet by mouth twice daily in the morning ranolazine (Ranexa) 500 MG 12 hr tablet Take 1 tablet (500 mg) by mouth 2 times daily. Do not crush, chew, or split. 180 tablet 3 10/02/2024 9:56 AM EDT 07/06/2024 07/06/2025 Active Start: 04-15-2021 take 1 tablet by cary th twice daily ranolazine (RANEXA) 500 MG extended release tablet Take 1 tablet by mouth 2 times daily 60 tablet 3 04/15/2021 Active spironolactone 25 mg oral tablet (20 sources) Aldosterone Antagonist Start: 06-06-2024 End: 09-15-2024 take 1 tablet by mouth twice daily in the morning spironolactone (Aldactone) 25 MG tablet Indications: Primary hypertension Take 1 tablet (25 mg) by mouth 2 times daily. 180 tablet 3 10/02/2024 9:56 AM EDT 06/06/2024 Active Start: 11-02-2022 End: 12-08-2022 take 1 tablet by mouth twice daily spironolactone (Aldactone) 25 MG tablet Take 1 tablet (25 mg) by mouth 2 times daily. 180 tablet 3 11/02/2022 Active Start: 10-27-2020 End: 04-07-2023 take 1 tablet by mouth once daily Spironolactone (Aldactone) 25 mg Tablet Discontinued 25 mg PO DAILY October 27, 2020 12:00am April 07, 2023 10:22am Start: 09-27-2019 take 1 tablet by cary once daily spironolactone (ALDACTONE) 25 MG tablet Indications: Essential hypertension Take 1 tablet by mouth daily 90 tablet 3 09/27/2019 Active tiotropium 0.018 mg inhalation powder (1 source) Anticholinergic Start: 03-18-2021 take 1 capsule by inhalation once daily tiotropium (SPIRIVA) 18 MCG inhalation capsule Inhale 1 capsule into the lungs daily 30 capsule 3 03/18/2021 Active Start: 03-18-2021 take 1 capsule by in halation once daily tiotropium (SPIRIVA) 18 MCG inhalation capsule Inhale 1 capsule into the lungs daily 30 capsule 3 03/18/2021 Active Completed/Discontinued Medications Medication Drug Class(es) Dates Sig (Normalized) Sig (Original) acetaminophen 325 mg oral tablet (8 sources) Start: 09-14-2024 End: 09-15-2024 take 1 tablet by mouth every six hours as needed for pain and pain 650 mg, Oral, Every 6 hours PRN, mild pain (1-3), moderate pain (4-6), Starting on Nicci 09/14/24 at 1507, Maximum dose of acetaminophen is 4000 mg from all sources in 24 hours. Start: 12-06-2022 End: 12-08-2022 take 1 tablet by mouth every six hours as needed for pain and fever acetaminophen (Tylenol) tablet 650 mg Start: 12-01-2021 acetaminophen (TYLENOL) tablet 650 mg Start: 03-17-2021 acetaminophen (TYLENOL) tablet 650 mg Start: 09-15-2019 acetaminophen (TYLENOL) tablet 650 mg Start: 09-08-2019 acetaminophen (TYLENOL) tablet 650 mg [id number] actuat albuterol 0.09 mg/actuat metered dose inhaler (6 sources) beta2-Adrenergic Agonist Start: 12-30-2021 End: 12-30-2021 albuterol sulfate HFA (PROVENTIL;VENTOLIN;PROAIR) 108 (90 Base) MCG/ACT inhaler 4 puff Start: 11-07-2020 take 2 puff(s) by in halation four times daily as needed for wheezing albuterol sulfate HFA (VENTOLIN HFA) 108 (90 Base) MCG/ACT inhaler Indications: COPD with asthma (HCC) Inhale 2 puffs into the lungs 4 times daily as needed for Wheezing 3 Inhaler 3 11/07/2020 Active Start: 10-22-2020 End: 10-22-2020 albuterol (PROVENTIL) nebuli zer solution 2.5 mg albuterol 0.833 mg/ml / ipratropium bromide 0.167 mg/ml inhalation solution (2 sources) Anticholinergic, beta2-Adrenergic Agonist Start: 12-07-2022 End: 12-08-2022 ipratropium-albuterol (Duo-Neb) 0.5-2.5 mg/3 mL nebulizer solution 3 mL aspirin 81 mg chewable tablet (20 sources) Platelet Aggregation Inhibitor, Nonsteroidal Anti-inflammatory Drug Start: 12-06-2022 End: 12-07-2022 take 81 mg by mouth once daily 81 mg, Oral, Daily, First dose on 12/06/22 at 1045 Start: 09-16-2019 take 81 mg by mouth once daily 81 mg, Oral, DAILY, First dose on Wed09/16/19 at 0900 Start: 09-15-2019 End: 09-15-2019 aspirin chewable tablet 81 m g Start: 09-03-2014 End: 10-05-2019 take 1 tablet by mouth once daily Aspirin 81 MG tablet Discontinued 81 mg PO DAILY@0800 September 03, 2014 12:00am October 05, 2019 7:47am atorvastatin 80 mg oral tablet (20 sources) HMG-CoA Reductase Inhibitor Start: 01-27-2022 End: 12-08-2022 take 80 mg by mouth once daily 80 mg, Oral, Daily, First dose on 12/06/22 at 2100 Start: 12-01-2021 atorvastatin ( LIPITOR) tablet 80 mg Start: 10-31-2020 take 80 mg by mouth at bedtime Atorvastatin Active 80 MG PO AT BEDTIME October 30, 2020 11:00pm Start: 08-27-2020 take 1 tablet by cary th once daily atorvastatin (LIPITOR) 80 MG tablet Indications: Coronary artery disease involving [place] coronary artery of [place] heart without angina pectoris , Other hyperlipidemia TAKE ONE TABLET BY MOUTH EVERY DAY 90 tablet 3 08/27/2020 Active Start: 05-26-2019 take 80 mg by mouth once daily 80 mg, Oral, DAILY, First dose on Wed09/15/19 at 0900 cholecalciferol 0.025 mg oral tablet (20 sources) Vitamin D Start: 09-14-2024 End: 09-15-2024 take 1000 [IU] by mouth once daily 1,000 Units, Oral, Daily, First dose on [facility] 09/14/24 at 1615 Start: 12-06-2022 End: 12-08-2022 take 800 [IU] by mouth once daily 800 Units, Oral, Daily, First dose on 12/06/22 at 1045 take 1 tablet by cary th once daily cholecalciferol (Vitamin D-3) 20 MCG (800 UNIT) tablet Take 800 Units by mouth daily. Active take 1 tablet by cary th once daily cholecalciferol (Vitamin D-3) 20 MCG (800 UNIT) tablet Take 800 Units by mouth daily. 0 Suspended take 1 tablet by cary th once daily cholecalciferol (Vitamin D-3) 20 MCG (800 UNIT) tablet Take 800 Units by mouth daily. 0 Active colchicine 0.6 mg oral tablet (2 sources) Start: 03-27-2024 End: 04-23-2024 take 1 tablet by mouth twice daily Colchicine 0.6 mg tablet Discontinued 0.6 mg PO TWICE A DAY April 08, 2024 1:00am April 23, 2024 8:15pm 24 hr isosorbide mononitrate 30 mg extended release oral tablet (20 sources) Nitrate Vasodilator Start: 09-14-2024 End: 09-15-2024 take 1 tablet by mouth once daily 120 mg, Oral, Daily, First dose on [facility] 09/14/24 at 1645, Do not chew or crush ER tablets; may be divided in half. Due to insoluble matrix embedding, ER tablets that are scored may be split. Start: 06-06-2024 End: 08-30-2024 take 2 tablets by mouth once daily isosorbide mononitrate ER (Imdur) 60 MG 24 hr tablet Indications: CAD in [place] artery Take 2 tablets (120 mg) by mouth daily. 180 tablet 3 08/30/2024 Active Start: 02-09-2023 End: 05-22-2024 take 2 tablets by mouth once daily isosorbide mononitrate ER (Imdur) 60 MG 24 hr tablet Indications: CAD in [place] artery Take 2 tablets (120 mg) by mouth daily. 180 tablet 2 05/22/2024 Active Start: 07-06-2022 End: 07-07-2023 take 1 tablet by mouth once daily isosorbide mononitrate ER (Imdur) 60 MG 24 hr tablet Indications: CAD in [place] artery Take 1 tablet (60 mg) by mouth daily. Do not crush or chew. 90 tablet 3 07/07/2022 02/09/2023 Discontinued (Reorder) Start: 01-07-2022 Isosorbide Mon onitrate 30 mg Tablet Extended Release 24 Hr Active 60 mg PO DAILY January 07, 2022 12:00am Start: 01-05-2022 End: 07-06-2022 take 30 mg by mouth twice daily Isosorbide Mononitrate Active 30 MG PO TWICE A DAY January 06, 2022 11:00pm Start: 12-01-2021 take 1 tablet by cary th once daily isosorbide mononitrate (IMDUR) 30 MG extended release tablet Take 1 tablet by mouth daily 90 tablet 3 12/02/2021 Active lisinopril 20 mg oral tablet (20 sources) Angiotensin Converting Enzyme Inhibitor Start: 10-27-2020 End: 04-07-2023 take 1 tablet by mouth once daily Lisinopril 20 mg Tablet Discontinued 20 mg PO DAILY October 27, 2020 12:00am April 07, 2023 10:21am Start: 05-02-2020 take 1 tablet by cary th once daily lisinopril (PRINIVIL;ZESTRIL) 20 MG tablet Take 1 tablet by mouth daily 90 tablet 1 05/02/2020 Active Start: 09-15-2019 take 40 mg by mouth once daily 40 mg, Oral, DAILY, First dose on Wed09/15/19 at 0900 Start: 09-05-2019 take 40 mg by mouth once daily 40 mg, Oral, DAILY, First dose on Wed09/05/19 at 1300 Start: 06-05-2019 take 1 tablet by cary th once daily lisinopril (PRINIVIL;ZESTRIL) 40 MG tablet Indications: Essential hypertension TAKE ONE TABLET BY MOUTH EVERY DAY 90 tablet 3 06/05/2019 Active magnesium citrate 58.2 mg/ml oral solution (5 sources) Start: 07-05-2023 End: 03-26-2024 take 1 mL by mouth once Magnesium Citrate solution Discontinued 300 mL PO ONE TIME July 05, 2023 1:00am March 27, 2024 12:16am Start: 07-05-2023 take 1 mL by mouth once Magnes ium Citrate Active 300 ML PO ONE TIME July 05, 2023 12:00am 100 ml magnesium sulfate 40 mg/ml injection (1 source) Start: 09-06-2019 End: 09-06-2019 magnesium sulfate 4 g in 100 mL IVPB premix meclizine hydrochloride 25 mg oral tablet (20 sources) Antiemetic Start: 09-10-2021 End: 12-29-2021 take 1 tablet by mouth every eight hours as needed for dizziness Meclizine 25 MG tablet Discontinued 25 mg PO EVERY 8 HOURS NEEDED as needed for Dizziness September 10, 2021 12:05am December 29, 2021 10:12am minoxidil 10 mg oral tablet (20 sources) Arteriolar Vasodilator Start: 06-17-2023 End: 06-16-2024 take 0.5 tablet by mouth once daily minoxidil (Loniten) 10 MG tablet Take 0.5 tablets (5 mg) by mouth daily. 0 06/17/2023 06/30/2023 Discontinued (Therapy completed) Start: 12-06-2022 End: 12-08-2022 take 5 mg by mouth twice daily 5 mg, Oral, 2 times violet ly, First dose on Wed12/06/22 at 1045 Start: 01-27-2022 End: 06-17-2023 take 0.5 tablet by mouth twice daily minoxidil (Loniten) 10 MG tablet Indications: Essential (primary) hypertension TAKE 1/2 TABLET BY MOUTH TWICE DAILY 180 tablet 3 02/23/2023 06/17/2023 Discontinued (Side effects) Start: 03-17-2021 take 5 mg by mouth twice daily 5 mg, Oral, 2 TIMES DAILY, First dose on 03/17/21 at 1315 Start: 03-06-2021 take 0.5 tablet by m outh twice daily minoxidil (LONITEN) 10 MG tablet Indications: Essential hypertension Take 0.5 tablets by mouth 2 times daily 180 tablet 3 03/06/2021 Active Start: 10-17-2019 take 0.5 tablet by m outh twice daily minoxidil (LONITEN) 10 MG tablet Indications: Essential hypertension Take 0.5 tablets by mouth 2 times daily 180 tablet 3 10/17/2019 Active Start: 10-05-2019 take 5 mg by mouth twice daily Minoxidil Active 5 MG PO TWICE A DAY October 05, 2019 6:53am Start: 10-05-2019 End: 10-05-2019 take 1 tablet by mouth twice daily Minoxidil 10 mg tablet Active 5 mg PO TWICE A DAY October 05, 2019 7:53am Start: 10-05-2019 End: 10-05-2019 Minoxidil Discontinued EACH PO October 04, 2019 11:00pm October 05, 2019 6:53am Start: 09-15-2019 take 5 mg by mouth twice daily 5 mg, Oral, 2 TIMES DAILY, First dose on Wed09/15/19 at 0900 Start: 09-05-2019 take 5 mg by mouth twice daily 5 mg, Oral, 2 TIMES DAILY, First dose on Wed09/05/19 at 1415 Start: 10-10-2018 take 0.5 tablet by m outh twice daily minoxidil (LONITEN) 10 MG tablet Indications: Essential hypertension Take 0.5 tablets by mouth 2 times daily 180 tablet 3 10/10/2018 Active End: 07-20-2024 take 1 tablet by mouth once daily minoxidil (Loniten) 10 MG tablet Take 10 mg by mouth daily. 07/20/2024 Discontinued (Therapy completed) nystatin 100 unt/mg topical powder (20 sources) Polyene Antifungal Start: 11-28-2019 End: 12-12-2019 Nystatin 100,000 unit/gram powder Discontinued 1 NMA TOPICAL DAILY November 28, 2019 12:00am December 11, 2019 12:00am December 12, 2019 12:02am Apply to umbilical area after shower and area is dry Start: 11-28-2019 End: 12-12-2019 Nystatin Discontinued 1 APPL IC TOPICAL DAILY November 27, 2019 11:00pm December 11, 2019 11:02pm Apply to umbilical area after shower and area is dry ondansetron 4 mg disintegrating oral tablet (5 sources) Serotonin-3 Receptor Antagonist Start: 07-05-2023 End: 03-26-2024 take 1 tablet by mouth every eight hours as needed for nausea Ondansetron 4 mg tablet,disintegrating Discontinued 4 mg PO EVERY 8 HOURS NEEDED as needed for Nausea July 05, 2023 1:00am March 27, 2024 12:17am pantoprazole 40 mg delayed release oral tablet (20 sources) Proton Pump Inhibitor Start: 04-01-2022 End: 03-26-2024 take 1 tablet by mouth once daily in the morning Pantoprazole (Protonix) 40 mg tablet,delayed release (DR/EC) Discontinued 40 mg PO EVERY MORNING April 01, 2022 12:41pm March 27, 2024 12:17am Start: 01-14-2022 End: 04-01-2022 Pantoprazole (Protonix) 40 m g tablet,delayed release (DR/EC) Discontinued 40 mg PO TWICE A DAY January 14, 2022 12:00am April 01, 2022 12:42pm take two times a day for eight weeks then once a day Start: 09-15-2019 take 40 mg by mouth once daily before breakfast 40 mg, Oral, DAILY BEFORE BREAKFAST, First dose on Wed09/15/19 at 0700 Do not crush or break. Substituted for Omeprazole (PRILOSEC). Start: 09-06-2019 take 40 mg by mouth once daily before breakfast 40 mg, Oral, DAILY BEFORE BREAKFAST, First dose on Wed09/06/19 at 0700 Do not crush or break. Substituted for Omeprazole (PRILOSEC). perflutren lipid microsphere s (DEFINITY) injection 1.65 mg (2 sources) Start: 09-07-2019 End: 09-08-2019 perflutren lipid microsphere s (DEFINITY) injection 1.65 mg Start: 09-07-2019 End: 09-10-2019 perflutren lipid microsphere s (DEFINITY) injection 1.65 mg perflutren protein A microsphere (Optison) 3 mL in sodium chloride (PF) 0.9 % 10 mL IV (2 sources) Start: 08-24-2024 End: 08-24-2024 0-10 mL, IntraVENous, IMG once PRN, other, Starting on [facility] 08/24/24 at 1341, For 1 dose, CV Procedural Medications, Draw entire 3 mL vial of perflutren protein A microspheres into a syringe along with 7 ml of NS from a vial to a total volume of 10 mL. polyethylene glycol 3350 02330 mg powder for oral solution (18 sources) Osmotic Laxative Start: 09-15-2019 End: 07-06-2024 take 17 g by mouth every twenty-four hours as needed for constipation 17 g, Oral, Daily PRN, constipation, Starting on 12/06/22 at 1032 1st line for treatment of constipation - give scheduled if no bowel movement in past 24 hours. microencapsulated potassium chloride 10 meq extended release oral tablet (1 source) Start: 09-06-2019 End: 09-06-2019 potassium chloride (KLOR-CON M) extended release tablet 40 mEq prochlorperazine 5 mg/ml injectable solution (2 sources) Phenothiazine Start: 09-14-2024 End: 09-14-2024 take 5 mg by mouth once 5 mg, IntraVENous, Once, On [facility] 09/14/24 at 1845, For 1 dose, Give if unable to tolerate po. rosuvastatin calcium 20 mg oral tablet (20 sources) HMG-CoA Reductase Inhibitor Start: 09-14-2024 End: 09-15-2024 take 40 mg by mouth once daily 40 mg, Oral, Daily, First dose on [facility] 09/14/24 at 1615 Start: 12-08-2022 End: 06-06-2025 take 1 tablet by mouth once daily in the morning rosuvastatin (Crestor) 40 MG tablet Indications: CAD in [place] artery Take 1 tablet (40 mg) by mouth daily. 90 tablet 3 10/02/2024 9:56 AM EDT 06/06/2024 06/06/2025 Active Start: 12-07-2022 End: 12-08-2022 rosuvastatin (Crestor) table t 40 mg Start: 09-03-2014 End: 10-05-2019 take 1 tablet by mouth once daily Rosuvastatin 20 MG tablet Discontinued 20 mg PO DAILY September 03, 2014 12:00am October 05, 2019 7:48am 1000 ml sodium chloride 9 mg/ml injection (20 sources) Start: 09-14-2024 End: 09-14-2024 take 125 mL intravenously every hour 125 mL/hr, IntraVENous, Continuous, Starting on [facility] 09/14/24 at 1430, For 6 hours, Recovery & On Unit Start: 09-14-2024 End: 09-14-2024 300 mL/hr, IntraVENous, Administer over 1 Hours, Continuous, Starting on [facility] 09/14/24 at 0915, For 1 hour, Preprocedure, Administer for 1 hour at calculated rate then reduce to KVO if procedure is delayed Start: 03-01-2023 End: 03-01-2023 sodium chloride 0.9 % infusi on Start: 03-01-2023 End: 03-01-2023 sodium chloride 0.9% (NS) fl ush 5-40 mL Start: 12-06-2022 End: 12-08-2022 take 5-40 mL intravenously every twelve hours 5-40 mL, IntraVENous, Every 12 hours, First dose on [place] 12/06/22 at 1045 For Line Patency: Peripheral IV = 5 [...] Midline or Central Line = 20 mL/lumen Start: 12-06-2022 End: 12-08-2022 5-250 mL/hr, IntraVENous, SD N, if patient receiving piggyback infusions and maintenance fluids are not ordered OR KVO fluids to protect IV site / prevent frequent line interruptions / long duration, Starting on [facility] 12/06/22 at 1032 For piggyback infusion, administer at same rate [...] or less into rate field of order. Start: 12-06-2022 End: 12-08-2022 take 5-40 mL intravenously once as needed 5-40 mL, IntraVENous, PRN, line care, After every IV line use, Starting on Wed12/06/22 at 1032 For Line Patency: Peripheral IV = 5 [...] Midline or Central Line = 20 mL/lumen Start: 12-01-2021 0.9 % sodium c hloride infusion Start: 12-01-2021 sodium chlorid e flush 0.9 % injection 5-40 mL Start: 03-17-2021 0.9 % sodium c hloride infusion Start: 03-17-2021 sodium chlorid e flush 0.9 % injection 5-40 mL Start: 09-15-2019 10 mL, Intrave nous, EVERY 12 HOURS SCHEDULED (2 times per day), First dose on Wed09/15/19 at 0900 Start: 09-15-2019 take 10 mL intraveno us route once as needed 10 mL, Intravenous, PRN, Line Care, After every IV line use, Starting Wed09/15/19 at 0612 Start: 09-08-2019 0.9 % sodium c hloride infusion Start: 09-06-2019 End: 09-10-2019 sodium chloride flush 0.9 % injection 10 mL Start: 09-05-2019 End: 09-05-2019 0.9 % sodium chloride bolus sucralfate 1000 mg oral tablet (20 sources) Aluminum Complex Start: 05-20-2023 End: 07-20-2024 take 1 tablet by mouth four times daily Sucralfate (Carafate) 1 gram tablet Discontinued 1 g PO .qid 360 May 20, 2023 1:00am March 27, 2024 12:16am Start: 01-14-2022 End: 04-01-2022 take 1 tablet by mouth three times daily 1 hour(s) before mealtime Sucralfate 1 gram tablet Discontinued 1 g PO before meals January 14, 2022 12:00am April 01, 2022 12:41pm take three times a day one hour before meals and two hours away from other medications sulfamethoxazole 800 mg / trimethoprim 160 mg oral tablet (1 source) Dihydrofolate Reductase Inhibitor Antibacterial, Sulfonamide Antimicrobial Start: 03-12-2024 End: 03-26-2024 Sulfamethoxazole-Trimethopri m (Bactrim Ds) 800-160 mg tablet Discontinued 1 {tbl} PO TWICE A DAY March 12, 2024 12:00am March 27, 2024 12:16am torsemide 20 mg oral tablet (20 sources) Loop Diuretic Start: 09-15-2024 End: 09-15-2024 take 20 mg by mouth once daily 20 mg, Oral, Daily, First dose (after last modification) on Wed09/15/24 at 0900 Start: 07-20-2024 take 1 tablet by cary th twice daily torsemide (Demadex) 20 MG tablet Indications: WATTS (dyspnea on exertion) Take 1 tablet (20 mg) by mouth 2 times daily. 180 tablet 3 07/20/2024 Active Start: 12-08-2022 End: 07-20-2024 take 1 tablet by mouth once daily Torsemide 20 mg tablet Active 20 mg PO DAILY April 07, 2023 1:00am Start: 12-06-2022 End: 12-07-2022 take 10 mg by mouth once daily 10 mg, Oral, Daily, Fir st dose on Wed12/06/22 at 1045 Start: 12-03-2022 End: 12-03-2023 take 0.5 tablet by mouth once daily torsemide (Demadex) 20 MG tablet Take 0.5 tablets (10 mg) by mouth daily. 180 tablet 3 12/03/2022 12/08/2022 Discontinued (Stop taking at discharge) Start: 10-14-2022 End: 12-03-2022 Torsemide 40 MG tablet Take 20 mg by mouth 2 times daily. 40 mg twice daily for 3 days then 20mg twice daily following 120 tablet 11 10/14/2022 12/03/2022 Discontinued Start: 10-14-2022 End: 10-14-2023 Torsemide 40 MG tablet Take 20 mg by mouth 2 times daily. 40 mg twice daily for 3 days then 20mg twice daily following 120 tablet 11 10/14/2022 10/14/2023 Active zolpidem tartrate 5 mg oral tablet (5 sources) gamma-Aminobutyric Acid-ergic Agonist Start: 11-11-2022 End: 12-03-2022 take 1 tablet by mouth once zolpidem (Ambien) 5 MG tablet Indications: Transient disorder of initiating or maintaining sleep Take 1 tablet (5 mg) by mouth Once for 1 dose. Take on the night of your sleep study. 1 tablet 0 11/11/2022 12/03/2022 Discontinued (Discontinued by another clinician) Problems Active Problems Problem Classification Problem Date Documented Da te Episodic/Chronic Acute cerebrovascular disease (20 sources) Acute cerebrovascular disease 01-07-2022 Comment on above: 10-11 YRS AGO/NO DEF ICITS Acute myocardial infarction (20 sources) Myocardial infarction; Translations: [Non-ST elevation (NSTEMI) myocardial infarction] Onset: 3 02-13-2016 Chronic Cardiac dysrhythmias (20 sources) Ventricular tachycardia; Translations: [Paroxysmal atrial fibrillation] Onset: 7 05-26-2016 Chronic Chronic kidney disease (20 sources) Chronic renal insufficiency; Translations: [Chronic kidney disease, unspecified] Onset: 3 09-18-2021 Chronic Chronic kidney disease (3 sources) Chronic kidney disease; Translations: [Chronic kidney disease, stage 3 unspecified] Onset: 3 Chronic obstructive pulmonary disease and bronchiectasis (20 sources) Chronic obstructive lung disease; Translations: [Chronic obstructive pulmonary disease, unspecified] Onset: 6 02-13-2016 Chronic Conditions associated with dizziness or vertigo (20 sources) Peripheral positional vertigo; Translations: [Other peripheral vertigo, left ear] 09-18-2021 Episodic Congestive heart failure; nonhypertensive (20 sources) Chronic diastolic heart failure; Translations: [Chronic diastolic (congestive) heart failure] Onset: 3 03-16-2023 Chronic Coronary atherosclerosis and other heart disease (20 sources) Coronary arteriosclerosis; Translations: [Coronary atherosclerosis] Onset: 1 02-13-2016 Chronic Coronary atherosclerosis and other heart disease (20 sources) Past history of procedure; Translations: [Coronary angioplasty status] Onset: 5 04-01-2020 Episodic Deficiency and other anemia (20 sources) Hemoglobin low; Translations: [Anemia, unspecified] 12-29-2021 Episodic Deficiency and other anemia (2 sources) Anemia, unspecified; Translations: [Anemia, unspecified] Episodic Diseases of white blood cells (20 sources) Leukocytosis; Translations: [Elevated white blood cell count, unspecified] 11-09-2020 Chronic Disorders of lipid metabolism (20 sources) Hyperlipidemia; Translations: [Hyperlipidemia, unspecified] Onset: 6 02-13-2016 Chronic E Codes: Fall (12 sources) Accidental fall ; Translations: [Unspecified fall, initial encounter] 12-29-2022 Episodic Esophageal disorders (20 sources) Gastroesophageal reflux disease; Translations: [Gastro-esophageal reflux disease without esophagitis] Chronic Essential hypertension (20 sources) Hypertensive disorder; Translations: [Essential (primary) hypertension] Onset: 9 06-04-2017 Chronic Gastritis and duodenitis (20 sources) Gastritis; Translations: [Gastritis, unspecified, without bleeding] Episodic Gout and other crystal arthropathies (3 sources) Acute gout; Translations: [Gout, unspecified] 05-01-2024 Chronic Hypertension with complications and secondary hypertension (20 sources) Chronic kidney disease due to hypertension; Translations: [Hypertensive chronic kidney disease with stage 1 through stage 4 chronic kidney disease, or unspecified chronic kidney disease] Onset: 3 03-03-2023 Chronic Lung disease due to external agents (2 sources) Pneumoconiosis; 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] Chronic Miscellaneous mental health disorders (1 source) Disorders of initiating and maintaining sleep; Translations: [Adjustment insomnia] 11-11-2022 Episodic Noninfectious gastroenteritis (20 sources) Chronic diarrhea; Translations: [Noninfective gastroenteritis and colitis, unspecified] Episodic Nutritional deficiencies (1 source) Vitamin D deficiency, unspecified; Translations: [Vitamin D deficiency, unspecified] Onset: Chronic Other circulatory disease (15 sources) H/O: heart disorder; Translations: [Personal history of other diseases of the circulatory system] 12-06-2022 Episodic Other connective tissue disease (20 sources) History of total hip arthroplasty; Translations: [Presence of right artificial hip joint] 04-01-2020 Chronic Other connective tissue disease (20 sources) History of total replacement of right hip joint; Translations: [Presence of right artificial hip joint] Onset: 1 03-03-2023 Chronic Other connective tissue disease (20 sources) Artificial knee joint present; Translations: [Presence of unspecified artificial knee joint] Onset: 1 03-03-2023 Chronic Other connective tissue disease (20 sources) Infected bursa; Translations: [Other infective bursitis, unspecified site] 10-27-2020 Episodic Other connective tissue disease (20 sources) Bursitis of elbow; Translations: [Other bursitis of elbow, left elbow] 10-31-2020 Episodic Other connective tissue disease (20 sources) Disorder of rotator cuff; Translations: [Unspecified disorder of synovium and tendon, unspecified shoulder] 08-20-2022 Episodic Other connective tissue disease (8 sources) Unspecified disorder of synovium and tendon, unspecified shoulder; Translations: [Disorders of bursae and tendons in shoulder region, unspecified] 08-21-2022 Episodic Other connective tissue disease (1 source) Foot swelling; Translations: [Other specified soft tissue disorders] 03-20-2024 Episodic Other connective tissue disease (1 source) Other bursitis of elbow, left elbow; Translations: [Bursitis of left elbow] 10-31-2020 Episodic Other connective tissue disease (1 source) Foot pain; Translations: [Pain in right foot] 04-16-2024 Episodic Other diseases of kidney and ureters (1 source) Renal impairment; Translations: [Disorder of kidney and ureter, unspecified] 12-08-2022 Episodic Other gastrointestinal disorders (20 sources) Dysphagia; Translations: [Dysphagia, unspecified] 04-01-2022 Episodic Other gastrointestinal disorders (20 sources) Diarrhea; Translations: [Diarrhea, unspecified] 07-28-2022 Episodic Other gastrointestinal disorders (6 sources) Diarrhea, unspecified; Translations: [Diarrhea] Episodic Other gastrointestinal disorders (11 sources) Dysphagia, unspecified; Translations: [Dysphagia, unspecified] Episodic Other gastrointestinal disorders (1 source) Esophageal dysphagia; Translations: [Other dysphagia] 08-11-2023 Episodic Other hematologic conditions (20 sources) Raised cardiac enzyme or marker; Translations: [Other specified abnormalities of plasma proteins] 09-18-2021 Episodic Other injuries and conditions due to external causes (12 sources) Hematoma; Translations: [Other injury of unspecified body region, initial encounter] 12-29-2022 Episodic Other injuries and conditions due to external causes (12 sources) Contusion of multiple sites; Translations: [Unspecified multiple injuries, initial encounter] 12-29-2022 Episodic Other liver diseases (20 sources) Elevated total bilirubin; Translations: [Unspecified jaundice] 12-29-2021 Episodic Other liver diseases (2 sources) Unspecified jaundice; Translations: [Disorders of bilirubin excretion] Episodic Other lower respiratory disease (2 sources) Interstitial lung disease; Translations: [Interstitial pulmonary disease, unspecified] Chronic Other lower respiratory disease (2 sources) Shortness of breath; Translations: [Shortness of Breath] Onset: 5 Episodic Other nutritional; endocrine; and metabolic disorders (20 sources) Obesity; Translations: [Obesity, unspecified] Onset: 1 03-24-2021 Chronic Other nutritional; endocrine; and metabolic disorders (5 sources) Body mass index 30+ - obesity; Translations: [Obesity, unspecified] 02-01-2024 Chronic Other nutritional; endocrine; and metabolic disorders (2 sources) Obesity, unspecified; Translations: [Obesity, unspecified] Onset: 4 Chronic Other screening for suspected conditions (not mental disorders or infectious disease) (20 sources) Patient encounter status; Translations: [Encounter for screening for malignant neoplasm of intestinal tract, unspecified] Onset: 4 04-01-2020 Episodic Other skin disorders (20 sources) Epidermoid cyst; Translations: [Epidermal cyst] 02-24-2021 Episodic Other skin disorders (20 sources) Sebaceous cyst of skin; Translations: [Sebaceous cyst] 02-06-2021 Episodic Other skin disorders (20 sources) Skin lesion; Translations: [Disorder of the skin and subcutaneous tissue, unspecified] 08-12-2022 Episodic Other skin disorders (1 source) Epidermal cyst; Translations: [Sebaceous cyst] 05-19-2022 Episodic Other skin disorders (7 sources) Disorder of the skin and subcutaneous tissue, unspecified; Translations: [Unspecified disorder of skin and subcutaneous tissue] 08-12-2022 Episodic Residual codes; unclassified (20 sources) Obstructive sleep apnea syndrome; Translations: [Obstructive sleep apnea (adult) (pediatric)] Onset: 06-04-2017 Chronic Residual codes; unclassified (20 sources) History of colonoscopy; Translations: [Other specified postprocedural states] 01-07-2022 Episodic Comment on above: 2019 Rheumatoid arthritis and related disease (20 sources) Rheumatoid arthritis; Translations: [Rheumatoid arthritis, unspecified] 2020 Chronic Superficial injury; contusion (1 source) Contusion of rib; Translations: [Contusion of unspecified front wall of thorax, initial encounter] 04-04-2024 Episodic Thyroid disorders (20 sources) Thyroid nodule; Translations: [Nontoxic single thyroid nodule] Onset: 10-27-2022 Chronic Unclassified (2 sources) Long-term current use of drug therapy; 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] 05-26-2016 Unclassified (20 sources) severe degenerative arthritis of right hip 10-05-2019 Viral infection (20 sources) COVID-19; Translations: [Pneumonia due to other virus not elsewhere classified] Episodic Past or Other Problems Problem Classification Problem Date Documented Date Episodic/Chronic Biliary tract disease (20 sources) Calculus of gallbladder with cholecystitis; Translations: [Calculus of gallbladder with chronic cholecystitis without obstruction] Onset: 11-18-2010 10-30-2019 Episodic Cardiac dysrhythmias (8 sources) Palpitations; Translations: [Palpitations] Onset: 07-20-2024 07-20-2024 Episodic Diabetes mellitus without complication (20 sources) Impaired fasting glycemia; Translations: [Impaired fasting glucose] Onset: 04-30-2009 03-03-2023 Episodic Nonspecific chest pain (20 sources) Chest pain; Translations: [Chest pain, unspecified] Onset: 06-03-2017 09-05-2019 Episodic Other aftercare (20 sources) Long-term current use of anticoagulant; Translations: [[facility] (current) use of anticoagulants] Onset: 05-26-2016 05-26-2016 Episodic Other aftercare (20 sources) Long-term current use of drug therapy; Translations: [Other [facility] (current) drug therapy] Onset: 05-26-2016 05-26-2016 Episodic Other connective tissue disease (1 source) Pain in right toe(s); Translations: [Pain in right toe(s)] Onset: 05-25-2024 Episodic Other connective tissue disease (1 source) Pain in right foot; Translations: [Pain in right foot] Onset: 06-08-2024 Episodic Other connective tissue disease (1 source) Other specified soft tissue disorders; Translations: [Other specified soft tissue disorders] Onset: 04-03-2024 Episodic Other lower respiratory disease (20 sources) Dyspnea on exertion; Translations: [Dyspnea, unspecified] Onset: 03-26-2021 03-26-2021 Episodic Other lower respiratory disease (2 sources) Other forms of dyspnea; Translations: [Other forms of dyspnea] Onset: 03-07-2022 Episodic Other skin disorders (1 source) Localized swelling, mass and lump, right lower limb; Translations: [Localized swelling, mass and lump, right lower limb] Onset: 04-03-2024 Episodic Residual codes; unclassified (20 sources) History of cardiac catheterization; Translations: [Other specified postprocedural states] Onset: 03-17-2021 Episodic Comment on above: 2021 Residual codes; unclassified (20 sources) Localized edema; Translations: [Localized edema] Onset: 09-28-2022 Episodic Skin and subcutaneous tissue infections (2 sources) Cellulitis; Translations: [Cellulitis, unspecified] Onset: 04-15-2024 03-20-2024 Episodic Results Test Name Value Interpretation Reference Range Facility 36on 10-19-2024 36 Great news, Tried to return phone call but no voice mail. Continue with same plan. [facility] 36 Pt called sarah landa to know he feels Awesome! Med changes are great, no chest pain, doing yard work, walking more. [facility] 29on 10-09-2024 29 Addended by: DANISHA SPAIN on: 10/10/2024 01:52 PM Modules accepted: Orders [facility] Progress Noteon 10-09-2024 Progress Note 10/09/24 1443 BPCI Late Drop? Program late drop? No BPCI Outreach Assessment Selection Which outreach assessment are you completing? 21 Day BPCI - 21 Day Outreach Did patient answer phone call? Yes Have you noticed any negative changes in your condition? No Have you had any issues contacting your provider regarding any concerns? No Do you have any concerns with your medication(s)? No Any complications with post discharge services? No Any concerns with your DME equipment? No Are there any additional items you need? No Any questions about your condition you are unsure about that I can help clarify? Yes (sending message to Cardiology-France Herrera to see if the patient can have repeat Echo on 02/07/25 per patients request.) Reminded patient about 30 day window to re-admit to SNF/HHC if needed. N/A Normal [facility] Progress Note Patient is scheduled with Dr. Escobedo on 02/07/2025, [place], please try and get his repeat ECHO for LV function, scheduled the same day. See order, I tried to call him to discuss, but he did not answer, no Voice mail. [facility] 36on 09-28-2024 36 Pt asking when he ne eds another Echo. Please call patient [facility] 37on 09-28-2024 37 Reduce norvasc to 5 mg once a day , reduce Ranexa to 500 mg twice a day Add Zetia 10 mg daily Call me in 2-3 weeks [phone] [facility] Office Visiton 09-28-2024 Follow-up visit [id number] Shannon Olson Marlena 1955 M Date Provider Department Center 09/28/2024 [id number] SPAIN [facility] [address] Ar Family History Problem Relation Age of Onset Diabetes Paternal Grandmother Diabetes Maternal Grandfather Cancer Sister Hypertension Mother Diabetes Sister Diabetes Paternal Grandfather Heart disease Paternal Grandmother Heart disease Paternal Grandfather Cancer Father Diabetes Brother Family Status - Relation Status Age at Paternal Grandmother Maternal Grandfather Sister Mother Alive Paternal Grandfather Father Brother Level of Service:79090 SD OFFICE/OUTPATIENT ESTABLISHED MOD MDM 30 MIN Reason for Visit and Comments: Coronary Artery Disease [187] [facility] Progress Noteon 09-28-2024 Progress Note [facility] [address] [facility] [address] Dept: [phone] Dept Visit Type: Established NAME: Shannon Olson : 1955 Reason for Visit: No chief complaint on file. Subjective HPI Shannon Olson is an 68 y.o. male, now followed by Dr. Ortega, with PMH of CAD, s/p multiple coronary stenting, NSTEMI, HTN, HLD, Afib on OAC, GERD, HIPOLITO, obesity, TIA who presents for a LHC on 09/14 for increased daily angina despite increased anti-anginal medications. Echo was with preserved EF 55%, now decreased with EF of 38% on 08/24/24. His last LHC was in 02/2023 and showed occluded RCA, with patent stents to LAD and Circumflex. LHC today showed 95% stenosis of the circumflex artery and a PCI with PTCA, IVL, PHU was completed successfully. Right radial artery was used. He tolerated the procedure well and remained stable. He was loaded again with Plavix 300 mg. He was observed over night due to burning chest discomfort and sensation of the room spinning. He was discharged the following morning. He presents for follow-up today. He has been feeling great. He has not had any angina or used a SL NTG. He has had some mild dizziness , but not syncope. He has been active with yard work and working out in his shop. His weight was down to 293 on his scale at home. He still has not heard about his new CPAP machine. Allergies Allergen Reactions Penicillins Rash Current Outpatient Medications Medication Instructions amiodarone (PACERONE) 200 mg, Oral, Daily amLODIPine (NORVASC) 5 mg, Oral, Daily cholecalciferol (VITAMIN D-3) 800 Units, Daily clopidogrel (PLAVIX) 75 mg, Oral, Daily Eliquis 5 mg, Oral, 2 times daily ezetimibe (ZETIA) 10 mg, Oral, Daily isosorbide mononitrate ER (IMDUR) 120 mg, Oral, Daily metoprolol succinate XL (TOPROL-XL) 50 mg, Oral, Daily, Do not crush or chew. nitroglycerin (NITROSTAT) 0.4 mg, SubLINGual, Every 5 min PRN, May repeat dose every 5 minutes for up to 3 doses total. ranolazine (RANEXA) 500 mg, Oral, 2 times daily, Do not crush, chew, or split. rosuvastatin (CRESTOR) 40 mg, Oral, Daily spironolactone (ALDACTONE) 25 mg, Oral, 2 times daily torsemide (DEMADEX) 20 mg, Oral, 2 times daily Past Medical History: Diagnosis Date Angina pectoris ([facility]) Anxiety Arrhythmia A-fib Asthma CAD (coronary artery disease) Cerebral artery occlusion with cerebral infarction ([facility]) COPD (chronic obstructive pulmonary disease) ([facility]) Depression WATTS (dyspnea on exertion) Fatigue GERD (gastroesophageal reflux disease) History of cardioversion 05/07/2016 Successful conversion of a-fib to SR History of left heart catheterization 05/07/2016 60% stenosis right posterior descending, patent stents in prox, mid & distal RCA, patent stents in med LCx. Findings unchanged from previous study. 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 NSTEMI (non-ST elevated myocardial infarction) ([facility]) 12/2012 NSTEMI (non-ST elevated myocardial infarction) ([facility]) 05/2014 Obesity Old [place] (myocardial infarction) HIPOLITO (obstructive sleep apnea) HIPOLITO on CPAP PAF (paroxysmal atrial fibrillation) ([facility]) Rheumatoid arthritis(714.0) ([facility]) ST segment elevation myocardial infarction (STEMI) of anterolateral wall, subsequent episode of care ([facility]) TIA (transient ischemic attack) Social History Tobacco Use Smoking status: Never Smokeless tobacco: Never Substance Use Topics Alcohol use: Not Currently Past Surgical History: Procedure Laterality Date CAPSULOTOMY, HAND 05/07/2016 CARDIAC CATHETERIZATION N/A 03/01/2023 Performed by Zoie Gonzales MD at [facility] Cardiac Cath/EP Lab CARDIAC CATHETERIZATION Left 09/14/2024 Performed by Dominguez Ortega MD at [facility] Cardiac Cath/EP Lab CARDIAC CATHETERIZATION N/A 09/14/2024 Performed by Dominguez Ortega MD at [facility] Cardiac Cath/EP Lab CARDIAC CATHETERIZATION N/A 09/14/2024 Performed by Dominguez Ortega MD at [facility] Cardiac Cath/EP Lab CARDIAC CATHETERIZATION N/A 09/14/2024 Performed by Dominguez Ortega MD at [facility] Cardiac Cath/EP Lab CARDIAC PROCEDURE Left 05/2015 CARDIAC PROCEDURE Left 06/03/2017 CARDIAC PROCEDURE Bilateral 01/2010 CARDIAC PROCEDURE Left 09/05/2019 PCI to distal RCA and PL branch CHOLECYSTECTOMY 10/30/2019 CORONARY ANGIOPLASTY WITH STENT PLACEMENT Left 11/2006 restent RCA, PHU to CX CORONARY ANGIOPLASTY WITH STENT PLACEMENT Left 05/2014 PTCA /cuttung balloon to instent restenosis RCA CORONARY ANGIOPLASTY WITH STENT PLACEMENT Left 10/2006 DESto prox Rt PAV, mid & dist RCA CORONARY ANGIOPLASTY WITH STENT PLACEMENT Left 11/2014 PHU to RCA CORONARY ANGIOPLASTY WITH STENT PLACEMENT Left 10/2007 PHU to Prox Rt PAV, mid-dist RCA CORONARY ANGIOPLASTY WITH STENT PLACEMENT Left 03/2009 PHU to mid RCA CORONARY ANGIOPLASTY WITH GERARDO (more content not included)... Normal [facility] 30on 09-15-2024 30 Problem: Pain - Adul t Goal: Verbalizes/displays adequate comfort level or baseline comfort level Outcome: Progressing Problem: Safety - Adult Goal: Free from fall injury Outcome: Progressing Problem: Discharge Planning Goal: Discharge to home or other facility with appropriate resources Outcome: Progressing Normal [facility] CBC (HEMOGRAM)on 09-15-2024 Erythrocyte distribution width (RBC) [Ratio] 14.7 % Normal 11.5-15.0 [facility] Comment on above: Performed By: #### L [id number] ####Sales Representative Wire Rope: DUTCH ABBOTT ([id number])[address] Hematocrit (Bld) [Volume fraction] 36.3 % Low 40.0-52.0 [facility] Comment on above: Performed By: #### L [id number] ####Sales Representative Wire R[employer]: DUTCH ABBOTT ([id number])[address] Hemoglobin (Bld) [Mass/Vol] 11.7 g/dL Low 13.0-18.0 [facility] Comment on above: Performed By: #### L [id number] ####Sales Representative [employer] R[employer]: DUTCH [id number])[address] MCH (RBC) [Entitic mass] 29.6 pg Normal 26.0-34.0 [facility] Comment on above: Performed By: #### L [id number] ####Sales Representative Wire Rope: DUTCH [id number])[facility] ([facility])[address] [place] [address] MCHC 32.2 % Normal 30.5-36.0 [facility] Comment on above: Performed By: #### L [id number] ####Sales Representative Wire Rope: DUTCH ABBOTT ([id number])[facility] ([facility])[address] [place] [address] MCV (RBC) [Entitic vol] 91.9 fL Normal 77.0-99.0 [facility] Comment on above: Performed By: #### L [id number] ####Sales Representative Wire Rope: DUTCH ABBOTT ([phone])[facility] ([facility])[address] [place] [address] Platelet mean volume (Bld) [Entitic vol] 9.8 fL Normal 9.0-12.7 [facility] Comment on above: Performed By: #### L [id number] ####Sales Representative Wire Rope: DUTCH ABBOTT ([phone])[facility] ([facility])[address] [place] [address] Platelets (Bld) [#/Vol] 194 10*3/uL Normal 140-440 [facility] Comment on above: Performed By: #### L [id number] ####Sales Representative Wire Rope: DUTCH ABBOTT ([id number])[facility] ([facility])[address] [place] [address] RBC (Bld) [#/Vol] 3.95 10*6/uL Low 4.40-5.90 [facility] Comment on above: Performed By: #### L [id number] ####Sales Representative Wire Rope: DUTCH ABBOTT ([phone])[facility] ([facility])[address] [place] [address] WBC (Bld) [#/Vol] 9.2 10*3/uL Normal 3.6-10.7 [facility] Comment on above: Performed By: #### L [id number] ####Sales Representative Wire Rope: DUTCH ABBOTT ([id number])[facility] ([facility])[address] [place] [address] CBC panel Auto (Bld)on 09-15 Erythrocyte distribution width (RBC) [Ratio] 14.7 % 11.5 - 15.0 % [facility] Hematocrit (Bld) [Volume fraction] 36.3 % Low 40.0 - 52.0 % [facility] Hemoglobin (Bld) [Mass/Vol] 11.7 g/dL Low 13.0 - 18.0 g/dL [facility] Interpretation and review of laboratory results Abnormal [facility] MCH (RBC) [Entitic mass] 29.6 pg 26.0 - 34.0 pg [facility] MCHC (RBC) [Mass/Vol] 32.2 % 30.5 - 36.0 % [facility] MCV (RBC) [Entitic vol] 91.9 fL 77.0 - 99.0 fL [facility] Platelet mean volume (Bld) [Entitic vol] 9.8 fL 9.0 - 12.7 fL [facility] Platelets (Bld) [#/Vol] 194 10*3/uL 140 - 440 10*3/uL [facility] RBC (Bld) [#/Vol] 3.95 10*6/uL Low 4.40 - 5.90 10*6/uL [facility] WBC (Bld) [#/Vol] 9.2 10*3/uL 3.6 - 10.7 10*3/uL [facility] COMPREHENSIVE METABOLIC PANE Kamar 09-15-2024 Albumin [Mass/Vol] 3.3 g/dL Low 3.4-4.8 [facility] Comment on above: Performed By: #### L AB18, LAB17 ####Sales Representative Wire Rope: DUTCH ABBOTT ([phone])[facility] ([facility])[address] [place] [address] ALP [Catalytic activity/Vol] 75 U/L Normal 40-150 [facility] Comment on above: Performed By: #### L AB18, LAB17 ####Sales Representative Wire Rope: DUTCH ABBOTT ([phone])[facility])[address] [place] [address] ALT [Catalytic activity/Vol] 17 U/L Normal <40 [facility] Comment on above: Performed By: #### L AB18, LAB17 ####Sales Representative Wire Rope: DUTCH ABBOTT ([id number])[facility] [place] [address] Anion gap [Moles/Vol] 7 mmol/L Normal 3-13 [facility] Comment on above: Performed By: #### L AB18, LAB17 ####Sales Representative Wire Rope: DUTCH ABBOTT ([id number])[facility])[address] AST [Catalytic activity/Vol] 20 U/L Normal <34 [facility] Comment on above: Performed By: #### L AB18, LAB17 ####Sales Representative Wire R[employer]: DUTCH ABBOTT ([phone])[facility] ([facility])[address] [place] [address] Bilirubin [Mass/Vol] 1.5 mg/dL High <1.2 [facility] Comment on above: Performed By: #### L AB18, LAB17 ####Sales Representative Wire Rope: DUTCH ABBOTT ([phone])[facility] [place] [address] Calcium [Mass/Vol] 8.3 mg/dL Low 8.8-10.0 [facility] Comment on above: Performed By: #### L AB18, LAB17 ####Sales Representative Wire Rope: DUTCH ABBOTT ([phone])[facility] ([facility])[address] [place] [address] [place] Chloride [Moles/Vol] 111 mmol/L High 98-107 [facility] Comment on above: Performed By: #### L AB18, LAB17 ####Sales Representative Wire Rope: DUTCH ABBOTT ([phone])[facility] ([facility])[address] [place] [address] [place] CO2 [Moles/Vol] 21 mmol/L Low 23-31 [facility] Comment on above: Performed By: #### L AB18, LAB17 ####Sales Representative Wire Rope: DUTCH ABBOTT ([phone])[facility] ([facility])[address] [place] [address] [place] Creatinine [Mass/Vol] 1.26 mg/dL High 0.72-1.25 [facility] Comment on above: Performed By: #### L AB18, LAB17 ####Sales Representative Wire Rope: DUTCH ABBOTT ([phone])[facility])[address] [place] [address] GLOMERULAR FILTRATION RATE ML/MIN/1.73 SQ M.PREDICTED 62.1 mL/min/1.73m*2 Normal >60.0 [facility] Comment on above: Result Comment: Calc ulation based on the Chronic Kidney Disease Epidemiology Collaboration (CKD-EPI) equation refit without adjustment for race Performed By: #### L 18, LAB17 ####Sales Representative Wire Rope: DUTCH ABBOTT ([id number])[facility])[address] [place] [address] Glucose [Mass/Vol] 116 mg/dL High 82-115 [facility] Comment on above: Performed By: #### Rina DAVIES18, LAB17 ####Sales Representative Wire Rope: DUTCH ABBOTT ([phone])[facility])[address] [place] [address] Potassium [Moles/Vol] 4.0 mmol/L Normal 3.5-5.1 [facility] Comment on above: Result Comment: [facility] potassium values may be up to 0.5 mmol/L lower than serum values. Performed By: #### Rina DAVIES18, LAB17 ####Sales Representative Wire R[employer]: DUTCH ABBOTT ([phone])[facility])[address] [place] [address] Protein [Mass/Vol] 6.1 g/dL Low 6.4-8.3 [facility] Comment on above: Performed By: #### L AB18, LAB17 ####Sales Representative [employer]: DUTCH ABBOTT ([phone])[facility])[address] [place] [address] Sodium [Moles/Vol] 139 mmol/L Normal 136-145 [facility] Comment on above: Performed By: #### L AB18, LAB17 ####Sales Representative [employer] R[employer]: DUTCH [id number])[facility] ([facility])[address] [place] [address] Urea nitrogen [Mass/Vol] 21 mg/dL Normal 9-23 [facility] Comment on above: Performed By: #### L AB18, LAB17 ####Sales Representative Wire R[employer]: DUTCH ABBOTT ([phone])[facility] [place] [address] Comprehensive metabolic 1998 panelon 09-15-2024 Albumin [Mass/Vol] 3.3 g/dL Low 3.4 - 4.8 g/dL [facility] ALP [Catalytic activity/Vol] 75 U/L 40 - 150 U/L [facility] ALT [Catalytic activity/Vol] 17 U/L NINF - 40 U/L [facility] Anion gap [Moles/Vol] 7 mmol/L 3 - 13 mmol/L [facility] AST [Catalytic activity/Vol] 20 U/L [facility] - 34 U/L [facility] Bilirubin [Mass/Vol] 1.5 mg/dL High NINF - 1.2 mg/dL [facility] Calcium [Mass/Vol] 8.3 mg/dL Low 8.8 - 10. 0 mg/dL [facility] Chloride [Moles/Vol] 111 mmol/L High 98 - 10 7 mmol/L [facility] CO2 [Moles/Vol] 21 mmol/L Low 23 - 31 mmol/L [facility] Creatinine [Mass/Vol] 1.26 mg/dL High 0.72 - 1.25 mg/dL [facility] GFR/1.73 sq M.predicted (S/P/Bld) [Vol rate/Area] 62.1 mL/min - PINF [facility] Comment on above: Calculation based on the Chronic Kidney Disease Epidemiology Collaboration (CKD-EPI) equation refit without adjustment for race Glucose [Mass/Vol] 116 mg/dL High 82 - 115 mg/dL [facility] Potassium [Moles/Vol] 4 mmol/L 3.5 - 5.1 mmol/L [facility] Comment on above: Plasma potassium reed ues may be up to 0.5 mmol/L lower than serum values. Protein [Mass/Vol] 6.1 g/dL Low 6.4 - 8.3 g/dL [facility] Sodium [Moles/Vol] 139 mmol/L 136 - 145 mmol/L [facility] Urea nitrogen [Mass/Vol] 21 mg/dL 9 - 23 mg/dL [facility] ECG 12-LEADon 09-15-2024 ECG 12-LEAD IMPRESSION: Sinus bradycardia Left bundle branch block Electronically Signed On 09-15-2024 19:22:18 EDT by Alvaro Elliott Normal [facility] ECG 12-LEAD IMPRESSION: Sinus bradycardia Left bundle branch block Electronically Signed On 09-15-2024 19:13:56 EDT by Alvaro Elliott Normal [facility] LIPID PANELon 09-15-2024 Cholesterol [Mass/Vol] 161 mg/dL Normal <200 [facility] Comment on above: Performed By: #### L AB18, LAB17 ####Sales Representative [employer]: DUTCH ABBOTT ([id number])[facility] ([facility])[address] [place] [address] Cholesterol in HDL [Mass/Vol] 39 mg/dL Low >=60 [facility] Comment on above: Performed By: #### L AB18, LAB17 ####Sales Representative Wire Rope: DUTCH ABBOTT ([phone])[facility])[address] [place] [address] Cholesterol.total/Chol esterol in HDL [Mass ratio] 4 {ratio} Normal [facility] Comment on above: Result Comment: Ref Range: < 3 Low Risk for CHD 3-6 Mod Risk for CHD > 6 High Risk for CHD Performed By: #### L AB18, LAB17 ####Sales Representative [employer]: DUTCH ABBOTT ([id number])[facility])[address] [place] [address] LOW DENSITY LIPOPROTEIN 82 mg/dL Normal 0-<100 [facility] Comment on above: Performed By: #### L AB18, LAB17 ####Sales Representative [employer]: DUTCH ABBOTT ([phone])[facility])[address] [place] [address] [place] NON-HDL CHOLESTEROL, CALCULATED 122 Normal <130 [facility] Comment on above: Performed By: #### L AB18, LAB17 ####Sales Representative Wire [employer]: DUTCH ABBOTT ([id number])[facility] ([facility])[address] [place] [address] Triglyceride [Mass/Vol] 202 mg/dL High <150 [facility] Comment on above: Performed By: #### L AB18, LAB17 ####Sales Representative Wire R[employer]: DUTCH ABBOTT ([id number])[facility] [place] [address] VERY LOW DENSITY LIPOPROTEIN, CALCULATED 40 mg/dL High <=30 [facility] Comment on above: Performed By: #### L AB18, LAB17 ####Sales Representative Wire [employer]: DUTCH ABBOTT ([id number])[facility] ([facility])[address] [place] [address] Lipid 1996 panelon 5 Cholesterol [Mass/Vol] 161 mg/dL NINF - 200 mg/dL [facility] Cholesterol in HDL [Mass/Vol] 39 mg/dL Low 60 - PINF mg/dL [employer] Cholesterol in LDL [Mass/Vol] 82 mg/dL 0 - <100 [employer] Cholesterol.total/Chol esterol in HDL [Mass ratio] 4 {ratio} [employer] Comment on above: Ref Range: < 3 Low Risk for CHD 3-6 Mod Risk for CHD > 6 High Risk for CHD NON-HDL CHOLESTEROL, CALCULATED 122 NINF - 130 [employer] Triglyceride [Mass/Vol] 202 mg/dL High NINF - 150 mg/dL [employer] VERY LOW DENSITY LIPOPROTEIN, CALCULATED 40 mg/dL High NINF - 30 mg/dL [employer] No Panel InformationOrdered By: Alvaro Elliott on 09-15-2024 P [place] 35 degrees [employer] Work Phone: SD Interval 203 ms [employer] Work Phone: QRS [place] 6 degrees [employer] Work Phone: QRSD Interval 160 ms [employer] Work Phone: QT Interval 505 ms [employer] Work Phone: QTC Interval 457 ms [employer] Work Phone: T Wave [place] 187 degrees [employer] Work Phone: [facility] [employer] Work Phone: No Panel Informationon 09-15 Sinus bradycardia Left bundle branch block Electronically Signed On 09-15-2024 19:22:18 EDT by Alvaro Ferrara MD - 09/15/2024 IMPRESSION: Sinus bradycardia Left bundle branch block Electronically Signed On 09-15-2024 19:22:18 EDT by Alvaro Elliott [facility] [employer] P [place] 14 degrees [facility] [employer] SD Interval 202 ms [facility] [employer] QRS [place] -5 degrees [facility] [employer] QRSD Interval 174 ms [facility] [employer] QT Interval 681 ms [facility] [employer] QTC Interval 636 ms [facility] [employer] T Wave [place] 166 degrees [facility] [employer] Sinus bradycardia Left bundle branch block Electronically Signed On 09-15-2024 19:13:56 EDT by Alvaro Elliott Alvaro Hawkins MD - 09/15/2024 IMPRESSION: Sinus bradycardia Left bundle branch block Electronically Signed On 09-15-2024 19:13:56 EDT by Alvaro Elliott [facility] Interpretation and review of laboratory results Abnormal [facility] Vital signsOrdered By: Monica Elliott on 09-15-2024 Heart rate 49 /min bpm [facility] [employer] Work Phone: Vital signson 09-15-2024 Heart rate 53 /min bpm [facility] [employer] 30on 09-14-2024 30 Problem: Pain - Adul t Goal: Verbalizes/displays adequate comfort level or baseline comfort level Outcome: Progressing Problem: Safety - Adult Goal: Free from fall injury Outcome: Progressing Problem: Discharge Planning Goal: Discharge to home or other facility with appropriate resources Outcome: Progressing Normal [facility] Anesthesia Noteon 09-14-2024 Anesthesia Note Sedation Plan ASA class 3 - patient with severe systemic disease Mallampati class: III - soft palate, base of uvula visible. Sedation plan: local anesthesia and minimal sedation Risks, benefits, and alternatives discussed with patient. Use of blood products discussed with patient who. Plan discussed with attending. Immediate reassessment prior to sedation: Patient's status reviewed and vital signs assessed; acceptable to perform procedure and proceed to administer sedation as planned. Normal [facility] No Panel Informationon 09-14 Interpretation and review of laboratory results Abnormal [facility] POCT ACT 166 High [facility] POCT ACT 270 High [facility] POCT ACT 248 [facility] Performed by: Dee Blackwood [facility], [address] [place] [id number] CLIA ID: [id number] [facility] Nursing Noteon 09-14-2024 Nursing Note Report called to Sydney humphries RN 1 Central Normal [facility] Nursing Note CONDUIT INSTALLER updated on pt sta tus, no improvement in chest pressure and now with room spinning dizziness. Normal [facility] Nursing Note CONDUIT INSTALLER at pt bedside Normal [facility] Progress Noteon 09-14-2024 Progress Note S/P PCI Seen in Prep and Recovery for C/O chest burning discomfort and sensation of room spinning. Discomfort not angina and is tender to palpation. Likely due to PCI with IVL and PTCA. Vitals and EKG are stable, no distress. Will observe overnight. Fluids infusing. Fellow and Dr. Ortega updated. Orders placed for admission. Normal [facility] 29on 09-12-2024 29 Addended by: MIRYAM BELLAMY on: 09/12/2024 03:26 PM Modules accepted: Orders [facility] 36on 09-12-2024 36 Prep for proc completed. Normal [facility] 36 Labs scanned in under Media [facility] 36 I called and request ed labs. She is faxing them over. Normal [facility] CBC W/Diff, Automatedon 08-23 Absolute Lymph 1.60 X10 3/uL Normal 0.83-4.51 [facility] Comment on above: Performed By: #### L 501.9520, L500.4050, L100.0100 #### [facility] [address] [place], [address] Absolute Neut 5.9 X10 3/uL Normal 2.0-7.7 [facility] Comment on above: Performed By: #### L 501.9520, L500.4050, L100.0100 #### [facility] [address] [place], [address] Basophils/100 WBC (Bld) 0.5 % Normal 0-1 [facility] Comment on above: Performed By: #### L 501.9520, L500.4050, L100.0100 #### [facility] [address] [place], [address] Eosinophils/100 WBC (Bld) 0.7 % Normal 0-5 [facility] Comment on above: Performed By: #### L 501.9520, L500.4050, L100.0100 #### [facility] [address] [place], [address] Erythrocyte distribution width (RBC) [Ratio] 14.4 % Normal 11.6-14.6 [facility] Comment on above: Performed By: #### L 501.9520, L500.4050, L100.0100 #### [facility] [address] [place], [address] Hematocrit (Bld) [Volume fraction] 42.1 % Normal 40-54 [facility] Comment on above: Performed By: #### L 501.9520, L500.4050, L100.0100 #### [facility] [address] [place], [address] Hemoglobin (Bld) [Mass/Vol] 14.0 g/dL Normal 13.0-16.5 [facility] Comment on above: Performed By: #### L 501.9520, L500.4050, L100.0100 #### [facility] [address] [place], [address] IG% 0.500 Normal 0.0-0.9 [facility] Comment on above: Result Comment: IG% - Immature Granulocytes (promyelocytes, myelocytes and metamyelocytes) > 1% indicates that a LEFT SHIFT is Present. Performed By: #### L 501.9520, L500.4050, L100.0100 #### [facility] [address] [place], [address] Lymphocytes/100 WBC (Bld) 19.6 % Normal 19-41 [facility] Comment on above: Performed By: #### L 501.9520, L500.4050, L100.0100 #### [facility] [address] [place], [address] MCH (RBC) [Entitic mass] 30.2 pg Normal 27.0-32.0 [facility] Comment on above: Performed By: #### L 501.9520, L500.4050, L100.0100 #### [facility] [address] [place], [address] MCHC (RBC) [Mass/Vol] 33.3 g/dL Normal 32-36 [facility] Comment on above: Performed By: #### L 501.9520, L500.4050, L100.0100 #### [facility] [address] [place], [address] MCV (RBC) [Entitic vol] 90.7 fL Normal 80-94 [facility] Comment on above: Performed By: #### L 501.9520, L500.4050, L100.0100 #### [facility] [address] [place], [address] Monocytes/100 WBC (Bld) 6.4 % Normal 0-10 [facility] Comment on above: Performed By: #### L 501.9520, L500.4050, L100.0100 #### [facility] [address] [place], [address] Neutrophils/100 WBC (Bld) 72.3 % High 47-70 [facility] Comment on above: Performed By: #### L 501.9520, L500.4050, L100.0100 #### [facility] [address] [place], [address] Nucleated RBC (Bld) [#/Vol] 0 10*3/uL Normal 0-5 [facility] Comment on above: Performed By: #### L 501.9520, L500.4050, L100.0100 #### [facility] [address] [place], [address] Platelet mean volume (Bld) [Entitic vol] 9.6 fL Normal 6.2-12.0 [facility] Comment on above: Performed By: #### L 501.9520, L500.4050, L100.0100 #### [facility] [address] [place], [address] Platelets (Bld) [#/Vol] 249 10*3/uL Normal 150-450 [facility] Comment on above: Performed By: #### L 501.9520, L500.4050, L100.0100 #### [facility] [address] [place], [address] RBC (Bld) [#/Vol] 4.64 10*6/uL Normal 4.6-6.2 [facility] Comment on above: Performed By: #### L 501.9520, L500.4050, L100.0100 #### [facility] [address] [place], [address] RDW SD 47.8 fl High 35.1-43.9 [facility] Comment on above: Performed By: #### L 501.9520, L500.4050, L100.0100 #### [facility] [address] [place], [address] WBC (Bld) [#/Vol] 8.2 10*3/uL Normal 4.4-11.0 [facility] Comment on above: Performed By: #### L 501.9520, L500.4050, L100.0100 #### [facility] [address] [place], [address] Absolute Neut Normal 2.0-7.7 [facility] Comment on above: Order Comment: Order Date: 07/30/23Order Info: [id number] - CBCD Result Comment: PT A LREADY AHD DONE Performed By: #### L 100.0500, L500.4050, L501.9520 #### [facility] [address] [place], [address] HCT Normal 40-54 [facility] Comment on above: Order Comment: Order Date: 07/30/23Order Info: [id number] - CBCD Result Comment: PT A LREADY AHD DONE Performed By: #### L 100.0500, L500.4050, L501.9520 #### [facility] [address] [place], [address] HGB Normal 13.0-16.5 [facility] Comment on above: Order Comment: Order Date: 07/30/23Order Info: [id number] - CBCD Result Comment: PT A LREADY AHD DONE Performed By: #### L 100.0500, L500.4050, L501.9520 #### [facility] [address] [place], [address] MCH Normal 27.0-32.0 [facility] Comment on above: Order Comment: Order Date: 07/30/23Order Info: [id number] - CBCD Result Comment: PT A LREADY AHD DONE Performed By: #### L 100.0500, L500.4050, L501.9520 #### [facility] [address] [place], [address] MCHC Normal 32-36 [facility] Comment on above: Order Comment: Order Date: 07/30/23Order Info: [id number] - CBCD Result Comment: PT A LREADY AHD DONE Performed By: #### L 100.0500, L500.4050, L501.9520 #### [facility] [address] [place], [address] MCV Normal 80-94 [facility] Comment on above: Order Comment: Order Date: 07/30/23Order Info: [id number] - CBCD Result Comment: PT A LREADY AHD DONE Performed By: #### L 100.0500, L500.4050, L501.9520 #### [facility] [address] [place], [address] NEUT% Normal 47-70 [facility] Comment on above: Order Comment: Order Date: 07/30/23Order Info: [id number] - CBCD Result Comment: PT A LREADY AHD DONE Performed By: #### L 100.0500, L500.4050, L501.9520 #### [facility] [address] [place], [address] PLT Normal 150-450 [facility] Comment on above: Order Comment: Order Date: 07/30/23Order Info: [id number] - CBCD Result Comment: PT A LREADY AHD DONE Performed By: #### L 100.0500, L500.4050, L501.9520 #### [facility] [address] [place], [address] RBC Normal 4.6-6.2 [facility] Comment on above: Order Comment: Order Date: 07/30/23Order Info: [id number] - CBCD Result Comment: PT A LREADY AHD DONE Performed By: #### L 100.0500, L500.4050, L501.9520 #### [facility] [address] [place], [address] RDW CV Normal 11.6-14.6 [facility] Comment on above: Order Comment: Order Date: 07/30/23Order Info: [id number] - CBCD Result Comment: PT A LREADY AHD DONE Performed By: #### L 100.0500, L500.4050, L501.9520 #### [facility] [address] [place], [address] RDW SD Normal 35.1-43.9 [facility] Comment on above: Order Comment: Order Date: 07/30/23Order Info: [id number] - CBCD Result Comment: PT A LREADY AHD DONE Performed By: #### L 100.0500, L500.4050, L501.9520 #### [facility] [address] [place], [address] WBC Normal 4.4-11.0 [facility] Comment on above: Order Comment: Order Date: 07/30/23Order Info: [id number] - CBCD Result Comment: PT A LREADY AHD DONE Performed By: #### L 100.0500, L500.4050, L501.9520 #### [facility] [address] [place], [address] Comprehensive Metabolic Prof [facility] 09-11-2024 Albumin [Mass/Vol] 4.3 g/dL Normal 3.4-4.8 [facility] Comment on above: Performed By: #### L 501.9520, L500.4050, L100.0100 #### [facility] [address] [place], [address] Albumin/Globulin [Mass ratio] 1.5 {ratio} Normal 0.9-2.4 [facility] Comment on above: Performed By: #### L 501.9520, L500.4050, L100.0100 #### [facility] [address] [place], [address] ALK PHOS 103 U/L Normal 40-129 [facility] Comment on above: Performed By: #### L 501.9520, L500.4050, L100.0100 #### [facility] [address] [place], [address] ALT [Catalytic activity/Vol] 22 U/L Normal <=46 [facility] Comment on above: Performed By: #### L 501.9520, L500.4050, L100.0100 #### [facility] [address] [place], [address] AST [Catalytic activity/Vol] 17 U/L Normal <=37 [facility] Comment on above: Performed By: #### L 501.9520, L500.4050, L100.0100 #### [facility] [address] [place], [address] Bilirubin [Mass/Vol] 0.92 mg/dL Normal 0.00-1.30 [facility] Comment on above: Performed By: #### L 501.9520, L500.4050, L100.0100 #### [facility] [address] [place], [address] BUN/CRE 12.8 RATIO Normal 10-20 [facility] Comment on above: Performed By: #### L 501.9520, L500.4050, L100.0100 #### [facility] [address] [place], [address] Calcium [Mass/Vol] 9.2 mg/dL Normal 7.6-11.0 [facility] Comment on above: Performed By: #### L 501.9520, L500.4050, L100.0100 #### [facility] [address] [place], [address] Chloride [Moles/Vol] 102 mmol/L Normal 98-108 [facility] Comment on above: Performed By: #### L 501.9520, L500.4050, L100.0100 #### [facility] [address] [place], [address] CO2 [Moles/Vol] 24.9 mmol/L Normal 21.0-32.0 [facility] Comment on above: Performed By: #### L 501.9520, L500.4050, L100.0100 #### [facility] [address] [place], [address] Creatinine [Mass/Vol] 1.55 mg/dL High 0.70-1.20 [facility] Comment on above: Performed By: #### L 501.9520, L500.4050, L100.0100 #### [facility] [address] [place], [address] GAP 11 Normal 5-15 [facility] Comment on above: Performed By: #### L 501.9520, L500.4050, L100.0100 #### [facility] [address] [place], [address] GFR/1.73 sq M.predicted among non-blacks MDRD (S/P/Bld) [Vol rate/Area] 48 mL/min/{1.73_m2} Low >60 [facility] Comment on above: Result Comment: mL/m in/1.73m2 CKD-EPI Creatinine Equation (2020) Performed By: #### L 501.9520, L500.4050, L100.0100 #### [facility] [address] [place], [address] Globulin (S) [Mass/Vol] 2.9 g/dL Normal 2.2-4.2 [facility] Comment on above: Performed By: #### L 501.9520, L500.4050, L100.0100 #### [facility] [address] [place], [address] Glucose [Mass/Vol] 122 mg/dL High 70-99 [facility] Comment on above: Performed By: #### L 501.9520, L500.4050, L100.0100 #### [facility] [address] [place], [address] Potassium [Moles/Vol] 4.1 mmol/L Normal 3.3-5.1 [facility] Comment on above: Performed By: #### L 501.9520, L500.4050, L100.0100 #### [facility] [address] [place], [address] Sodium [Moles/Vol] 138 mmol/L Normal 133-145 [facility] Comment on above: Performed By: #### L 501.9520, L500.4050, L100.0100 #### [facility] [address] [place], [address] T PROT 7.2 g/dL Normal 5.9-8.4 [facility] Comment on above: Performed By: #### L 501.9520, L500.4050, L100.0100 #### [facility] [address] [place], [address] Urea nitrogen [Mass/Vol] 20 mg/dL High 4-19 [facility] Comment on above: Performed By: #### L 501.9520, L500.4050, L100.0100 #### [facility] [address] [place], [address] ALB Normal 3.4-4.8 [facility] Comment on above: Order Comment: Order Date: 07/30/23 Order Info: [id number] - CMP Order Info: [id number] - LIPID Order Info: [id number] - MG Result Comment: PT A LREADY AHD DONE Performed By: #### L 500.4050, L100.0100, L500.4100 #### [facility] [address] [place], [address] ALK PHOS Normal 40-129 [facility] Comment on above: Order Comment: Order Date: 07/30/23 Order Info: [id number] - CMP Order Info: [id number] - LIPID Order Info: [id number] - MG Result Comment: PT A LREADY AHD DONE Performed By: #### L 500.4050, L100.0100, L500.4100 #### [facility] [address] [place], [address] ALT Normal <=46 [facility] Comment on above: Order Comment: Order Date: 07/30/23 Order Info: [id number] - CMP Order Info: [id number] - LIPID Order Info: [id number] - MG Result Comment: PT A LREADY AHD DONE Performed By: #### L 500.4050, L100.0100, L500.4100 #### [facility] [address] [place], [address] AST Normal <=37 [facility] Comment on above: Order Comment: Order Date: 07/30/23 Order Info: [id number] - CMP Order Info: [id number] - LIPID Order Info: [id number] - MG Result Comment: PT A LREADY AHD DONE Performed By: #### L 500.4050, L100.0100, L500.4100 #### [facility] [address] [place], [address] BUN Normal 4-19 [facility] Comment on above: Order Comment: Order Date: 07/30/23 Order Info: [id number] - CMP Order Info: [id number] - LIPID Order Info: [id number] - MG Result Comment: PT A LREADY AHD DONE Performed By: #### L 500.4050, L100.0100, L500.4100 #### [facility] [address] [place], [address] BUN/CRE Normal 10-20 [facility] Comment on above: Order Comment: Order Date: 07/30/23 Order Info: [id number] - CMP Order Info: [id number] - LIPID Order Info: [id number] - MG Result Comment: PT A LREADY AHD DONE Performed By: #### L 500.4050, L100.0100, L500.4100 #### [facility] [address] [place], [address] Calcium Normal 7.6-11.0 [facility] Comment on above: Order Comment: Order Date: 07/30/23 Order Info: [id number] - CMP Order Info: [id number] - LIPID Order Info: [id number] - MG Result Comment: PT A LREADY AHD DONE Performed By: #### L 500.4050, L100.0100, L500.4100 #### [facility] [address] [place], [address] CL Normal 98-108 [facility] Comment on above: Order Comment: Order Date: 07/30/23 Order Info: [id number] - CMP Order Info: - LIPID Order Info: [id number] - MG Result Comment: PT A LREADY AHD DONE Performed By: #### L 500.4050, L100.0100, L500.4100 #### [facility] [address] [place], [address] CO2 Normal 21.0-32.0 [facility] Comment on above: Order Comment: Order Date: 07/30/23 Order Info: [id number] - CMP Order Info: [id number] - LIPID Order Info: [id number] - MG Result Comment: PT A LREADY AHD DONE Performed By: #### L 500.4050, L100.0100, L500.4100 #### [facility] [address] [place], [address] CREAT,SERUM Normal 0.70-1.20 [facility] Comment on above: Order Comment: Order Date: 07/30/23 Order Info: [id number] - CMP Order Info: [id number] - LIPID Order Info: [id number] - MG Result Comment: PT A LREADY AHD DONE Performed By: #### L 500.4050, L100.0100, L500.4100 #### [facility] [address] [place], [address] eGFR Normal >60 [facility] Comment on above: Order Comment: Order Date: 07/30/23 Order Info: [id number] - CMP Order Info: [id number] - LIPID Order Info: [id number] - MG Result Comment: PT A LREADY AHD DONE Performed By: #### L 500.4050, L100.0100, L500.4100 #### [facility] [address] [place], [address] GAP Normal 5-15 [facility] Comment on above: Order Comment: Order Date: 07/30/23 Order Info: [id number] - CMP Order Info: [id number] - LIPID Order Info: [id number] - MG Result Comment: PT A LREADY AHD DONE Performed By: #### L 500.4050, L100.0100, L500.4100 #### [facility] [address] [place], [address] GLU Normal 70-99 [facility] Comment on above: Order Comment: Order Date: 07/30/23 Order Info: [id number] - CMP Order Info: [id number] - LIPID Order Info: [id number] - MG Result Comment: PT A LREADY AHD DONE Performed By: #### L 500.4050, L100.0100, L500.4100 #### [facility] [address] [place], [address] Potassium Normal 3.3-5.1 [facility] Comment on above: Order Comment: Order Date: 07/30/23 Order Info: [id number] - CMP Order Info: [id number] - LIPID Order Info: [id number] - MG Result Comment: PT A LREADY AHD DONE Performed By: #### L 500.4050, L100.0100, L500.4100 #### [facility] [address] [place], [address] T BILI Normal 0.00-1.30 [facility] Comment on above: Order Comment: Order Date: 07/30/23 Order Info: [id number] - CMP Order Info: [id number] - LIPID Order Info: [id number] - MG Result Comment: PT A LREADY AHD DONE Performed By: #### L 500.4050, L100.0100, L500.4100 #### [facility] [address] [place], [address] T PROT Normal 5.9-8.4 [facility] Comment on above: Order Comment: Order Date: 07/30/23 Order Info: [id number] - CMP Order Info: [id number] - LIPID Order Info: [id number] - MG Result Comment: PT A LREADY AHD DONE Performed By: #### L 500.4050, L100.0100, L500.4100 #### [facility] [address] [place], [address] Comprehensive Metabolic Profil Normal 133-145 [facility] Comment on above: Order Comment: Order Date: 07/30/23 Order Info: [id number] - CMP Order Info: [id number] - LIPID Order Info: [id number] - MG Result Comment: PT A LREADY AHD DONE Performed By: #### L 500.4050, L100.0100, L500.4100 #### [facility] [address] [place], [address] Lipid Profileon 09-11-2024 TRIG Normal [facility] Comment on above: Order Comment: Order Date: 07/30/23 Order Info: [id number] - CMP Order Info: [id number] - LIPID Order Info: [id number] - MG Result Comment: PT A LREADY AHD DONE The drugs N-Acetylcysteine and Metamizole may falsely depress this assay. Performed By: #### L 500.4050, L100.0100, L500.4100 #### [facility] [address] [place], [address] CHOL Normal <=200 [facility] Comment on above: Order Comment: Order Date: 07/30/23 Order Info: [id number] - CMP Order Info: [id number] - LIPID Order Info: [id number] - MG Result Comment: PT A LREADY AHD DONE Performed By: #### L 500.4050, L100.0100, L500.4100 #### [facility] [address] [place], [address] CHOL:HDL Normal [facility] Comment on above: Order Comment: Order Date: 07/30/23 Order Info: [id number] - CMP Order Info: [id number] - LIPID Order Info: [id number] - MG Result Comment: PT A LREADY AHD DONE Performed By: #### L 500.4050, L100.0100, L500.4100 #### [facility] [address] [place], [address] CLDL Normal [facility] Comment on above: Order Comment: Order Date: 07/30/23 Order Info: [id number] - CMP Order Info: [id number] - LIPID Order Info: [id number] - MG Result Comment: PT A LREADY AHD DONE Performed By: #### L 500.4050, L100.0100, L500.4100 #### [facility] [address] [place], [address] HDL Normal [facility] Comment on above: Order Comment: Order Date: 07/30/23 Order Info: [id number] - CMP Order Info: [id number] - LIPID Order Info: [id number] - MG Result Comment: PT A LREADY AHD DONE Performed By: #### L 500.4050, L100.0100, L500.4100 #### [facility] [address] [place], [address] VLDL Normal 5-40 [facility] Comment on above: Order Comment: Order Date: 07/30/23 Order Info: [id number] - CMP Order Info: [id number] - LIPID Order Info: [id number] - MG Result Comment: PT A LREADY AHD DONE Performed By: #### L 500.4050, L100.0100, L500.4100 #### [facility] [address] [place], [address] Protein+Creatinine Ratio,Uri neon 09-11-2024 PROT:CRE RATIO Normal 0-200 [facility] Comment on above: Result Comment: PT A LREADY AHD DONE Performed By: #### L 501.9910 #### [facility] [address] [place], [address] PROTEIN,UR.RAN. Normal 0.0-12.0 [facility] Comment on above: Result Comment: PT A LREADY AHD DONE Performed By: #### L 501.9910 #### [facility] [address] [place], [address] UR CREAT Normal 39.00-259. 00 [facility] Comment on above: Result Comment: PT A LREADY AHD DONE Performed By: #### L 501.9910 #### [facility] [address] [place], [address] Thyroid Stim Hormone (TSH)on 09-11-2024 TSH 1.880 uIU/mL Normal 0.300-4.20 0 [facility] Comment on above: Performed By: #### L 501.9520, L500.4050, L100.0100 #### [facility] [address] [place], [address] 36on 09-07-2024 36 See order for LHC on 09/14/2024. Normal [facility] 36 Phone to patient, Dr Carrol Ortega has reviewed his ECHO, reduce EF as compared to previous. He call the office with increased Episodes of angina. Taking more SL NTG than usual. Have max out his anti-angina medications. Holter monitor without atrial fibrillation. Low burden of PAC's and PVC's. Will need to fax order for labs to [facility]. Will add on for 09/14/2024 at 11 am., He will need an EKG the day of, has a recent OV from 08/24/2024. Notified patient of date and time. Normal [facility] Absolute neutrophil countOrd ered By: Finn Ferrell on 08-31-2024 Neutrophils (Bld) [#/Vol] 5.5 10*3/uL 2.0-7.7 [facility] Anion gap in Serum or Plasma Ordered By: Finn Ferrell on 08-31-2024 Anion gap [Moles/Vol] 12 mmol/L 10-05 [facility] BUN/creatinine ratioOrdered By: Finn Ferrell on 08-31-2024 Urea nitrogen/Creatinine [Mass ratio] 13.5 mg/mg 03-12 [facility] Basophil percentageOrdered B y: Finn Ferrell on 08-31-2024 Basophils/100 WBC (Bld) 0.7 % 0- [facility] Bilirubin, totalOrdered By: Finn Ferrell on 08-31-2024 Bilirubin [Mass/Vol] 0.98 mg/dL 0.00-1.30 [facility] CBC W/Diff, Automatedon 08-22 Absolute Lymph 1.47 X10 3/uL Normal 0.83-4.51 [facility] Comment on above: Performed By: #### L 100.0500, L500.4050, L501.9520 #### [facility] [address] [place], [address] Absolute Neut 5.5 X10 3/uL Normal 2.0-7.7 [facility] Comment on above: Performed By: #### L 100.0500, L500.4050, L501.9520 #### [facility] [address] [place], [address] Basophils/100 WBC (Bld) 0.7 % Normal 0-1 [facility] Comment on above: Performed By: #### L 100.0500, L500.4050, L501.9520 #### [facility] [address] [place], [address] Eosinophils/100 WBC (Bld) 0.5 % Normal 0-5 [facility] Comment on above: Performed By: #### L 100.0500, L500.4050, L501.9520 #### [facility] [address] [place], [address] Erythrocyte distribution width (RBC) [Ratio] 14.2 % Normal 11.6-14.6 [facility] Comment on above: Performed By: #### L 100.0500, L500.4050, L501.9520 #### [facility] [address] [place], [address] Hematocrit (Bld) [Volume fraction] 42.6 % Normal 40-54 [facility] Comment on above: Performed By: #### L 100.0500, L500.4050, L501.9520 #### [facility] [address] [place], [address] Hemoglobin (Bld) [Mass/Vol] 14.0 g/dL Normal 13.0-16.5 [facility] Comment on above: Performed By: #### L 100.0500, L500.4050, L501.9520 #### [facility] [address] [place], [address] IG% 0.700 Normal 0.0-0.9 [facility] Comment on above: Result Comment: IG% - Immature Granulocytes (promyelocytes, myelocytes and metamyelocytes) > 1% indicates that a LEFT SHIFT is Present. Performed By: #### L 100.0500, L500.4050, L501.9520 #### [facility] [address] [place], [address] Lymphocytes/100 WBC (Bld) 19.5 % Normal 19-41 [facility] Comment on above: Performed By: #### L 100.0500, L500.4050, L501.9520 #### [facility] [address] [place], [address] MCH (RBC) [Entitic mass] 30.0 pg Normal 27.0-32.0 [facility] Comment on above: Performed By: #### L 100.0500, L500.4050, L501.9520 #### [facility] [address] [place], [address] MCHC (RBC) [Mass/Vol] 32.9 g/dL Normal 32-36 [facility] Comment on above: Performed By: #### L 100.0500, L500.4050, L501.9520 #### [facility] [address] [place], [address] MCV (RBC) [Entitic vol] 91.4 fL Normal 80-94 [facility] Comment on above: Performed By: #### L 100.0500, L500.4050, L501.9520 #### [facility] [address] [place], [address] Monocytes/100 WBC (Bld) 5.7 % Normal 0-10 [facility] Comment on above: Performed By: #### L 100.0500, L500.4050, L501.9520 #### [facility] [address] [place], [address] Neutrophils/100 WBC (Bld) 72.9 % High 47-70 [facility] Comment on above: Performed By: #### L 100.0500, L500.4050, L501.9520 #### [facility] [address] [place], [address] Nucleated RBC (Bld) [#/Vol] 0 10*3/uL Normal 0-5 [facility] Comment on above: Performed By: #### L 100.0500, L500.4050, L501.9520 #### [facility] [address] [place], [address] Platelet mean volume (Bld) [Entitic vol] 9.8 fL Normal 6.2-12.0 [facility] Comment on above: Performed By: #### L 100.0500, L500.4050, L501.9520 #### [facility] [address] [place], [address] Platelets (Bld) [#/Vol] 271 10*3/uL Normal 150-450 [facility] Comment on above: Performed By: #### L 100.0500, L500.4050, L501.9520 #### [facility] [address] [place], [address] RBC (Bld) [#/Vol] 4.66 10*6/uL Normal 4.6-6.2 [facility] Comment on above: Performed By: #### L 100.0500, L500.4050, L501.9520 #### [facility] [address] [place], [address] RDW SD 47.3 fl High 35.1-43.9 [facility] Comment on above: Performed By: #### L 100.0500, L500.4050, L501.9520 #### [facility] [address] [place], [address] WBC (Bld) [#/Vol] 7.5 10*3/uL Normal 4.4-11.0 [facility] Comment on above: Performed By: #### L 100.0500, L500.4050, L501.9520 #### [facility] [address] [place], [address] Calculated total iron bindin g capacityOrdered By: Finn Ferrell on 08-31-2024 Total Iron Binding Capacity 289 ug/dL 250-450 [facility] Calculated very low density lipoprotein (VLDL) cholesterol measurementOrdered By: Finn Ferrell on 08-31-2024 VLDL Cholesterol 44 mg/dL High 5-40 [facility] Carbon dioxide, total [Moles /volume] in Central venous bloodOrdered By: Finn Ferrell on 08-31-2024 CO2 [Moles/Vol] 26.1 mmol/L 21.0-32.0 [facility] Chloride assayOrdered By: Tanika Ferrell on 08-31-2024 Chloride [Moles/Vol] 104 mmol/L 98-108 [facility] Comprehensive Metabolic Prof ilon 08-31-2024 Albumin [Mass/Vol] 4.3 g/dL Normal 3.4-4.8 [facility] Comment on above: Performed By: #### L 100.0500, L500.4050, L501.9520 #### [facility] [address] [place], [address] Albumin/Globulin [Mass ratio] 1.4 {ratio} Normal 0.9-2.4 [facility] Comment on above: Performed By: #### L 100.0500, L500.4050, L501.9520 #### [facility] [address] [place], [address] ALK PHOS 100 U/L Normal 40-129 [facility] Comment on above: Performed By: #### L 100.0500, L500.4050, L501.9520 #### [facility] [address] [place], [address] ALT [Catalytic activity/Vol] 22 U/L Normal <=46 [facility] Comment on above: Performed By: #### L 100.0500, L500.4050, L501.9520 #### [facility] [address] [place], [address] AST [Catalytic activity/Vol] 21 U/L Normal <=37 [facility] Comment on above: Performed By: #### L 100.0500, L500.4050, L501.9520 #### [facility] [address] [place], [address] Bilirubin [Mass/Vol] 0.98 mg/dL Normal 0.00-1.30 [facility] Comment on above: Performed By: #### L 100.0500, L500.4050, L501.9520 #### [facility] [address] [place], [address] BUN/CRE 13.5 RATIO Normal 10-20 [facility] Comment on above: Performed By: #### L 100.0500, L500.4050, L501.9520 #### [facility] [address] [place], [address] Calcium [Mass/Vol] 9.7 mg/dL Normal 7.6-11.0 [facility] Comment on above: Performed By: #### L 100.0500, L500.4050, L501.9520 #### [facility] [address] [place], [address] Chloride [Moles/Vol] 104 mmol/L Normal 98-108 [facility] Comment on above: Performed By: #### L 100.0500, L500.4050, L501.9520 #### [facility] [address] [place], [address] CO2 [Moles/Vol] 26.1 mmol/L Normal 21.0-32.0 [facility] Comment on above: Performed By: #### L 100.0500, L500.4050, L501.9520 #### [facility] [address] [place], [address] Creatinine [Mass/Vol] 1.59 mg/dL High 0.70-1.20 [facility] Comment on above: Performed By: #### L 100.0500, L500.4050, L501.9520 #### [facility] [address] [place], [address] GAP 12 Normal 5-15 [facility] Comment on above: Performed By: #### L 100.0500, L500.4050, L501.9520 #### [facility] [address] [place], [address] GFR/1.73 sq M.predicted among non-blacks MDRD (S/P/Bld) [Vol rate/Area] 47 mL/min/{1.73_m2} Low >60 [facility] Comment on above: Result Comment: mL/m in/1.73m2 CKD-EPI Creatinine Equation (2020) Performed By: #### L 100.0500, L500.4050, L501.9520 #### [facility] [address] [place], [address] Globulin (S) [Mass/Vol] 3.1 g/dL Normal 2.2-4.2 [facility] Comment on above: Performed By: #### L 100.0500, L500.4050, L501.9520 #### [facility] [address] [place], [address] Glucose [Mass/Vol] 144 mg/dL High 70-99 [facility] Comment on above: Performed By: #### L 100.0500, L500.4050, L501.9520 #### [facility] [address] [place], [address] Potassium [Moles/Vol] 4.1 mmol/L Normal 3.3-5.1 [facility] Comment on above: Performed By: #### L 100.0500, L500.4050, L501.9520 #### [facility] [address] [place], [address] Sodium [Moles/Vol] 142 mmol/L Normal 133-145 [facility] Comment on above: Performed By: #### L 100.0500, L500.4050, L501.9520 #### [facility] [address] [place], [address] T PROT 7.3 g/dL Normal 5.9-8.4 [facility] Comment on above: Performed By: #### L 100.0500, L500.4050, L501.9520 #### [facility] [address] [place], [address] Urea nitrogen [Mass/Vol] 22 mg/dL High 4-19 [facility] Comment on above: Performed By: #### L 100.0500, L500.4050, L501.9520 #### [facility] [address] [place], [address] Creatinine Unsp time (U) [Ma ss/Vol]Ordered By: Finn Ferrell on 08-31-2024 Creatinine (U) [Mass/Vol] 126.00 mg/dL 39.00-259. 00 [facility] Eosinophil percentageOrdered By: Finn Ferrell on 08-31-2024 Eosinophils/100 WBC (Bld) 0.5 % 0-5 [facility] Erythrocyte distribution wid th (RBC) [Ratio]Ordered By: Finn Ferrell on 08-31-2024 Erythrocyte distribution width (RBC) [Entitic vol] 47.3 fL High 35.1-43.9 [facility] Erythrocyte distribution wid th ratioOrdered By: Finn Ferrell on 08-31-2024 Erythrocyte distribution width (RBC) [Ratio] 14.2 % 11.6-14.6 [facility] Ferritinon 08-31-2024 Ferritin [Mass/Vol] 473 ng/mL High 37-417 [facility] Comment on above: Performed By: #### L 100.0500, L500.4050, L501.9520 #### [facility] [address] [place], [place], [address] GFR/1.73 sq M.predicted yony g non-blacks MDRD (S/P/Bld) [Vol rate/Area]Ordered By: Finn Ferrell on 08-31-2024 Estimated GFR (MDRD) Non-Af Amer 47 Low >60 [facility] Comment on above: mL/min/1.73m2 CKD-EP I Creatinine Equation (2020) Hematocrit Auto (Bld) [Volum e fraction]Ordered By: Finn Ferrell on 08-31-2024 Hematocrit (Bld) [Volume fraction] 42.6 % 40-54 [facility] Hemoglobin measurementOrdere d By: Finn Ferrell on 08-31-2024 Hemoglobin (Bld) [Mass/Vol] 14.0 g/dL 13.0-16.5 [facility] Immature granulocytes/100 WB C Auto (Bld)Ordered By: Finn Ferrell on 08-31-2024 Immature granulocytes/100 WBC (Bld) 0.700 % 0.0-0.9 [facility] Comment on above: IG% - Immature Granu locytes (promyelocytes, myelocytes and metamyelocytes) > 1% indicates that a LEFT SHIFT is Present. Iron (Unsp spec) [Mass/Mass] Ordered By: Finn Ferrell on 08-31-2024 Iron [Mass/Vol] 79 ug/dL 65-175 [facility] Iron saturation [Mass fracti on]Ordered By: Finn Ferrell on 08-31-2024 Iron Saturation 27.0 % 9-55 [facility] Iron+Iron Binding Capacityon 08-31-2024 Iron [Mass/Vol] 79 ug/dL Normal 65-175 [facility] Comment on above: Performed By: #### L 100.0500, L500.4050, L501.9520 #### [facility] [address] [place], [place], [id number] IRON SATURATION 27.0 Normal 9-55 [facility] Comment on above: Performed By: #### L 100.0500, L500.4050, L501.9520 #### [facility] [address] [place], [address] TIBC 289 ug/dL Normal 250-450 [facility] Comment on above: Performed By: #### L 100.0500, L500.4050, L501.9520 #### [facility] [address] [place], [address] UIBC 210 ug/dL Low 228-428 [facility] Comment on above: Performed By: #### L 100.0500, L500.4050, L501.9520 #### [facility] [address] [place], [address] LDL calc ser/plasOrdered By: Finn Ferrell on 08-31-2024 LDL Cholesterol, Calculated 112 mg/dL [facility] Comment on above: Iibomqmsqi=639-170 m g/dL & Higher Qdmw=941 mg/dL or greater Laboratory - Chemistry and C hemistry - challengeOrdered By: Finn Ferrell on 08-31-2024 AST [Catalytic activity/Vol] 21 U/L <38 [facility] Lipid Profileon 08-31-2024 CHOL:HDL 3.83 Normal [facility] Comment on above: Performed By: #### L 100.0500, L500.4050, L501.9520 #### [facility] [address] [place], [address] Cholesterol [Mass/Vol] 212 mg/dL High <=200 [facility] Comment on above: Result Comment: Chol esterol level, Desirable <200 mg/dL Borderline high cholesterol 200-239 mg/dL High cholesterol >=240 mg/dL Recommendations of the NCEP Adult Treatment Panel for the following risk-cutoff thresholds for the [place] population. Performed By: #### L 100.0500, L500.4050, L501.9520 #### [facility] [address] [place], [address] Cholesterol in HDL [Mass/Vol] 55 mg/dL Normal [facility] Comment on above: Result Comment: Lisa onal Cholesterol Education Program (NCEP) guidelines: <40 mg/dL: Low HDL-cholesterol (major risk factor for CHD) >= 60 mg/dL: High HDL-cholesterol (negative risk factor for CHD) HDL-cholesterol is affected by a number of factors, e.g. smoking, exercise, hormones, sex and age. Performed By: #### L 100.0500, L500.4050, L501.9520 #### [facility] [address] [place], [address] Cholesterol in LDL [Mass/Vol] 112 mg/dL Normal [facility] Comment on above: Result Comment: Bord aayydk=746-072 mg/dL Higher Veaw=447 mg/dL or greater Performed By: #### L 100.0500, L500.4050, L501.9520 #### [facility] [address] [place], [address] Cholesterol in VLDL [Mass/Vol] 44 mg/dL High 5-40 [facility] Comment on above: Performed By: #### L 100.0500, L500.4050, L501.9520 #### [facility] [address] [place], [address] Triglyceride [Mass/Vol] 222 mg/dL High [facility] Comment on above: Result Comment: The drugs N-Acetylcysteine and Metamizole may falsely depress this assay. Normal range: <150 mg/dL Borderline High: 150-199 mg/dL High: 200-499 mg/dL Very High: >500 mg/dL Performed By: #### L 100.0500, L500.4050, L501.9520 #### [facility] [address] [place], [address] Lymphocytes Auto (Unsp spec) [#/Vol]Ordered By: Finn Ferrell on 08-31-2024 Lymphocytes (Bld) [#/Vol] 1.47 10*3/uL 0.83-4.51 [facility] Lymphocytes/100 WBC Auto (Un sp spec)Ordered By: Finn Ferrell on 08-31-2024 Lymphocytes/100 WBC (Bld) 19.5 % 19-41 [facility] MCV (mean corpuscular volume ) determinationOrdered By: Finn Ferrell on 08-31-2024 MCV (RBC) [Entitic vol] 91.4 fL 80-94 [facility] Magnesiumon 08-31-2024 Magnesium [Mass/Vol] 2.2 mg/dL Normal 1.5-2.2 [facility] Comment on above: Performed By: #### L 100.0500, L500.4050, L501.9520 #### [facility] [address] [place], [address] Magnesium (Unsp spec) [Mass/ Vol]Ordered By: Finn Ferrell on 08-31-2024 Magnesium [Mass/Vol] 2.2 mg/dL 1.5-2.2 [facility] Mean corpuscular hemoglobin (MCH) determinationOrdered By: Finn Ferrell on 08-31-2024 MCH (RBC) [Entitic mass] 30.0 pg 27.0-32.0 [facility] Mean corpuscular hemoglobin concentration (MCHC) determinationOrdered By: Finn Ferrell on 08-31-2024 MCHC (RBC) [Mass/Vol] 32.9 g/dL 32-36 [facility] Mean platelet volume determi nationOrdered By: Finn Ferrell on 08-31-2024 Platelet mean volume (Bld) [Entitic vol] 9.8 fL 6.2-12.0 [facility] Monocyte percentageOrdered B y: Finn Ferrell on 08-31-2024 Monocytes/100 WBC (Bld) 5.7 % 0-10 [facility] Neutrophil percentageOrdered By: Finn Ferrell on 08-31-2024 Neutrophils/100 WBC (Bld) 72.9 % High 47-70 [facility] No Panel InformationOrdered By: Finn Ferrell on 08-31-2024 Unsaturated Iron Binding Capacity 210 ug/dL Low 228-428 [facility] Nucleated red blood cell per centageOrdered By: Finn Ferrell on 08-31-2024 Nucleated RBC/100 WBC (Bld) [Ratio] 0 % 0-5 [facility] PTH intactOrdered By: Finn cabrera on 08-31-2024 Parathyroid Hormone (Intact) 54 pg/mL - [facility] PTHINon 08-31-2024 PTH 54 pg/mL Normal - [facility] Comment on above: Performed By: #### L 100.0500, L500.4050, L501.9520 #### [facility] [address] [place], [address] Phosphoruson 08-31-2024 Phosphate [Mass/Vol] 2.9 mg/dL Normal 2.7-4.5 [facility] Comment on above: Performed By: #### L 100.0500, L500.4050, L501.9520 #### [facility] [address] [place], [address] Platelet countOrdered By: Tanika Ferrell on 08-31-2024 Platelets (Bld) [#/Vol] 271 10*3/uL 150-450 [facility] Potassium (Unsp spec) [Mass/ Vol]Ordered By: Finn Ferrell on 08-31-2024 Potassium [Moles/Vol] 4.1 mmol/L 3.3-5.1 [facility] Protein+Creatinine Ratio,Uri neon 08-31-2024 PROT:CRE RATIO 77 mg/g CRE Normal 0-200 [facility] Comment on above: Performed By: #### L 100.0500, L500.4050, L501.9520 #### [facility] [address] [place], [address] Protein (U) [Mass/Vol] 9.8 mg/dL Normal 0.0-12.0 [facility] Comment on above: Performed By: #### L 100.0500, L500.4050, L501.9520 #### [facility] [address] [place], [address] Protein/Creatinine (U) [Mass ratio]Ordered By: Finn Ferrell on 08-31-2024 Urine Protein/Creatinine Ratio 77 mg/g CRE 0-200 [facility] RBC Auto (Bld) [#/Vol]Ordere d By: Finn Ferrell on 08-31-2024 RBC (Bld) [#/Vol] 4.66 10*6/uL 4.6-6.2 [facility] Screening total cholesterol/ high density lipoprotein (HDL) cholesterol ratioOrdered By: Finn Ferrell on 08-31-2024 Cholesterol.total/Chol esterol in HDL [Mass ratio] 3.83 {ratio} [facility] Serum creatinine measurement (mass/volume)Ordered By: Finn Ferrell on 08-31-2024 Creatinine [Mass/Vol] 1.59 mg/dL High 0.70-1.20 [facility] Serum globulin measurementOr dered By: Finn Ferrell on 08-31-2024 Globulin (S) [Mass/Vol] 3.1 g/dL 2.2-4.2 [facility] Serum glucose measurement (m ass/volume)Ordered By: Finn Ferrell on 08-31-2024 Glucose [Mass/Vol] 144 mg/dL High 70-99 [facility] Serum or plasma alanine newman otransferase (ALT) measurementOrdered By: Finn Ferrell on 08-31-2024 ALT [Catalytic activity/Vol] 22 U/L <47 [facility] Serum or plasma albumin renu urement (mass/volume)Ordered By: Finn Ferrell on 08-31-2024 Albumin [Mass/Vol] 4.3 g/dL 3.4-4.8 [facility] Serum or plasma albumin/glob ulin mass ratioOrdered By: Finn Ferrell on 08-31-2024 Albumin/Globulin [Mass ratio] 1.4 {ratio} 0.9-2.4 [facility] Serum or plasma alkaline christal sphatase measurementOrdered By: Finn Ferrell on 08-31-2024 ALP [Catalytic activity/Vol] 100 U/L 40-129 [facility] Serum or plasma calcium renu urement (mass/volume)Ordered By: Finn Ferrell on 08-31-2024 Calcium [Mass/Vol] 9.7 mg/dL 7.6-11.0 [facility] Serum or plasma cholesterol in HDL measurement (mass/volume)Ordered By: Finn Ferrell on 08-31-2024 Cholesterol in HDL [Mass/Vol] 55 mg/dL >40 [facility] Comment on above: National Cholesterol Education Program (NCEP) guidelines:<40 mg/dL: Low HDL-cholesterol (major risk factor for CHD)>= 60 mg/dL: High HDL-cholesterol (negative risk factor for CHD)HDL-cholesterol is affected by a number of factors, e.g. smoking, exercise, hormones, sex and age. Serum or plasma cholesterol measurement (mass/volume)Ordered By: Finn Ferrell on 08-31-2024 Cholesterol [Mass/Vol] 212 mg/dL High <201 [facility] Comment on above: Cholesterol level, D esirable <200 mg/dLBorderline high cholesterol 200-239 mg/dLHigh cholesterol >=240 mg/dLRecommendations of the NCEP Adult Treatment Panel for the following risk-cutoff thresholds for the [place] population. Serum or plasma ferritin ellen surement (mass/volume)Ordered By: Finn Ferrell on 08-31-2024 Ferritin [Mass/Vol] 473 ng/mL High 37-417 [facility] Serum or plasma urea nitroge n measurement (mass/volume)Ordered By: Finn Ferrell on 08-31-2024 Urea nitrogen [Mass/Vol] 22 mg/dL High 4-19 [facility] Serum phosphorus measurement Ordered By: Finn Ferrell on 08-31-2024 Phosphorus Level 2.9 mg/dL 2.7-4.5 [facility] Sodium levelOrdered By: Finn Ferrell on 08-31-2024 Sodium [Moles/Vol] 142 mmol/L 133-145 [facility] Total proteinOrdered By: Benedicto Ferrell on 08-31-2024 Protein [Mass/Vol] 7.3 g/dL 5.9-8.4 [facility] Triglycerides measurementOrd ered By: Finn Ferrell on 08-31-2024 Triglyceride [Mass/Vol] 222 mg/dL High <199 [facility] Comment on above: The drugs N-Acetylcy steine and Metamizole may falsely depress this assay. Normal range: <150 mg/dLBorderline High: 150-199 mg/dLHigh: 200-499 mg/dLVery High: >500 mg/dL Urine protein measurement (m ass/volume)Ordered By: Finn Ferrell on 08-31-2024 Protein (U) [Mass/Vol] 9.8 mg/dL 0.0-12.0 [facility] Vitamin D, 25-hydroxyOrdered By: Finn Ferrell on 08-31-2024 Vitamin D 25-Hydroxy 51.4 ng/mL 30-100 [facility] Comment on above: Vitamin D StatusDefi ciency: <20 ng/mL (50nmol/L)Insufficiency: 20-30 ng/mL (50-75 nmol/L)Sufficiency: 30-100 ng/mL (75-250 nmol/L)Toxicity: >100 ng/mL (>250 nmol/L) Vitamin D,25 Hydroxyon 08-31 Vitamin D 25-OH 51.4 ng/mL Normal 30-100 [facility] Comment on above: Result Comment: Purnima min D Status Deficiency: <20 ng/mL (50nmol/L) Insufficiency: 20-30 ng/mL (50-75 nmol/L) Sufficiency: 30-100 ng/mL (75-250 nmol/L) Toxicity: >100 ng/mL (>250 nmol/L) Performed By: #### L 100.0500, L500.4050, L501.9520 #### [facility] [address] [place], [address] White blood cell (WBC) count Ordered By: Finn Ferrell on 08-31-2024 WBC (Bld) [#/Vol] 7.5 10*3/uL 4.4-11.0 [facility] 29on 08-30-2024 29 Addended by: DANISHA SPAIN on: 08/30/2024 11:32 AM Modules accepted: Orders Normal [facility] 36on 08-30-2024 36 Return phone call to Patient, Prasanthdur renewed, he had questions regarding his Echocardiogram , RVE- JET , he was able to get an appt with sleep medicine tomorrow. Again, today he is feeling good without angina. New LVD , on Echocardiogram, No evidenced of volume overload at recent OV. On going issue has been angina, which is now improving with recent medication changes. Dr. Ortega out of office, until next week, will discuss results with him when he returns. Normal [facility] 36 Pt requesting Imdur 60 mg to [facility] pharmacy and has more questions [facility] 36on 08-29-2024 36 Phone call to merle laws. 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 He felt really good with no angina or SOB. He did increase the lopressor to 50 mg bid. He still does not have a new CPAP machine, but has been calling about. Reviewed the results of the Echocardiogram, now with reduced EF ~ 38%, and and RVE. , JET. I will review with Dr. Ortega. [facility] 37on 08-24-2024 37 Increase Lopressor t o 50 mg twice day Monitor Blood pressure and heart rate, call if you get dizzy , If blood pressure below 100 systolic ( top number) call me. [phone] [facility] Office Visiton 08-24-2024 Follow-up visit [id number] Shannon Olson 1955 M Date Provider Department Center 08/24/2024 [facility] [address] Family History Problem Relation Age of Onset Diabetes Paternal Grandmother Diabetes Maternal Grandfather Cancer Sister Hypertension Mother Diabetes Sister Diabetes Paternal Grandfather Heart disease Paternal Grandmother Heart disease Paternal Grandfather Cancer Father Diabetes Brother Family Status - Relation Status Age at Paternal Grandmother Maternal Grandfather Sister Mother Alive Paternal Grandfather Father Brother Level of Service:64110 SD OFFICE/OUTPATIENT ESTABLISHED MOD MDM 30 MIN Reason for Visit and Comments: Follow-up [011963] Shortness of Breath [[id number]] [facility] Progress Noteon 08-24-2024 Progress Note [facility] [address] [facility] [address] Dept: [phone] Dept Visit Type: Established NAME: Shannon Olson : 1955 Reason for Visit: Follow-up and Shortness of Breath Subjective HPI Shannon Olson is an 68 y.o. male, followed by Dr. Ortega, with PMH of CAD, with multiple coronary stents in all 3 vessels. Most recent C, 02/2023, demonstrated an occluded RCA, with patent stents to LAD and Circumflex. Labs from 06/20/2024 stable. He has been working with pulmonary and sleep medicine regarding his CPAP machine, currently he is not using it. He was seen urgently about 1 month ago, at which time, his antianginal medications were adjusted. Imdur was changed to 120 mg daily , ( not 60 mg bid), Norvasc increased to 10 mg daily, and Ranexa 1000 mg in am, 500 mg pm He is intolerant to high doses of Ranexa due to stomach issues and dizziness. He had similar issues with increasing to 1000 mg in the morning but now seems to be tolerating it okay. He presents for follow-up. He underwent an Echocardiogram today, as well as placement of his Holter monitor. Since last seen, he has had mild improvement in his angina. He still get WATTS. He has been using prophylactic sublingual nitroglycerin, and has been able to take short walks. His walks are somewhat limited secondary to needing a knee replacement. He usually has his angina in the morning, and then improves throughout the day once he has been taking his medications. He has never needed to use more than 1 sublingual nitroglycerin to relieve his angina. That he is using this frequently. He has been diligently working on weight loss, he is down about 10 pounds. He has been eating less and trying to increase his activity although this has been somewhat limited given his frequent episodes of angina. He does not appear volume overloaded. He is very compliant with his medications. Allergies Allergen Reactions Penicillins Rash Current Outpatient Medications Medication Instructions amiodarone (PACERONE) 200 mg, Oral, Daily amLODIPine (NORVASC) 5 mg, Oral, 2 times daily cholecalciferol (VITAMIN D-3) 800 Units, Daily clopidogrel (PLAVIX) 75 mg, Oral, Daily Eliquis 5 mg, Oral, 2 times daily isosorbide mononitrate ER (IMDUR) 120 mg, Oral, Daily metoprolol tartrate (LOPRESSOR) 50 mg, Oral, 2 times daily nitroglycerin (NITROSTAT) 0.4 mg, SubLINGual, Every 5 min PRN, May repeat dose every 5 minutes for up to 3 doses total. ranolazine (RANEXA) 500 mg, Oral, 2 times daily, Do not crush, chew, or split. rosuvastatin (CRESTOR) 40 mg, Oral, Daily spironolactone (ALDACTONE) 25 mg, Oral, 2 times daily torsemide (DEMADEX) 20 mg, Oral, 2 times daily Past Medical History: Diagnosis Date Angina pectoris ([facility]) Anxiety Arrhythmia A-fib Asthma CAD (coronary artery disease) Cerebral artery occlusion with cerebral infarction ([facility]) COPD (chronic obstructive pulmonary disease) ([facility]) Depression WATTS (dyspnea on exertion) Fatigue GERD (gastroesophageal reflux disease) History of cardioversion 05/07/2016 Successful conversion of a-fib to SR History of left heart catheterization 05/07/2016 60% stenosis right posterior descending, patent stents in prox, mid & distal RCA, patent stents in med LCx. Findings unchanged from previous study. 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 [employer] current use of antiarrhythmic drug [facility] current use of anticoagulant NSTEMI (non-ST elevated myocardial infarction) ([facility]) 12/2012 NSTEMI (non-ST elevated myocardial infarction) ([facility]) 05/2014 Obesity Old PA (myocardial infarction) HIPOLITO (obstructive sleep apnea) HIPOLITO on CPAP PAF (paroxysmal atrial fibrillation) ([facility]) Rheumatoid arthritis(714.0) ([facility]) ST segment elevation myocardial infarction (STEMI) of anterolateral wall, subsequent episode of care ([facility]) TIA (transient ischemic attack) Social History Tobacco Use Smoking status: Never Smokeless tobacco: Never Substance Use Topics Alcohol use: Not Currently Past Surgical History: Procedure Laterality Date CAPSULOTOMY, HAND 05/07/2016 CARDIAC CATHETERIZATION N/A 03/01/2023 Performed by Zoie Gonzales MD at [facility] Cardiac Cath/EP Lab CARDIAC PROCEDURE Left 05/2015 CARDIAC PROCEDURE Left 06/03/2017 CARDIAC PROCEDURE Bilateral 01/2010 CARDIAC PROCEDURE Left 09/05/2019 PCI to distal RCA and PL branch CHOLECYSTECTOMY 10/30/2019 CORONARY ANGIOPLASTY WITH STENT PLACEMENT Left 11/2006 restent RCA, PHU to CX CORONARY ANGIOPLASTY WITH STENT PLACEMENT Left 05/2014 PTCA /cuttung balloon to instent restenosis RCA CORONARY ANGIOPLASTY WITH STENT PLACEMENT Left 10/2006 DESto prox Rt PAV, mid & dist RCA CORONARY ANGIOPLASTY WITH STENT PLACEMENT Left 11/2014 PHU to RCA CORONARY ANGIOPLASTY WITH STENT PLACEMENT Left 10/2007 PHU to Prox Rt PAV, mid-dist RCA CORONARY ANGIOPL (more content not included)... Normal [facility] [employer] [facility] US Heart TransthoracicOrdere d By: Smita Montano on 08-24-2024 Ao Root Index 1.23 cm/m2 [facility] [employer] Phone: Aortic Arch 4 cm [facility] [employer] Work Phone: Aortic Root 3.2 cm [facility] [employer] Work Phone: Aortic Sinus Valsalva 3.2 cm [facility] [employer] Phone: Aortic Sinus Valsalva Index 1.23 cm/m2 [facility] [employer] Phone: Aortic valve Orifice area by US 3.8 cm2 [facility] [employer] Phone: Ascending Aorta 4.7 cm [facility] [employer] Phone: Ascending Aorta Index 1.81 cm/m2 [facility] [employer] Phone: AV Area by Peak Velocity 2.9 cm2 [facility] [employer] Phone: AV Peak Gradient 8 mmHg [facility] [employer] Phone: AV Peak Velocity 1.5 m/s [facility] [employer] Phone: AV Velocity Ratio 0.73 [facility] [employer] Phone: GRACE/BSA Peak Velocity 1.1 cm2/m2 [facility] [employer] Phone: E/E' Lateral 8 [facility] [employer] Phone: E/E' Ratio (Averaged) 8.57 [facility] [employer] Phone: E/E' Septal 9.14 [facility] [employer] Phone: Est. RA Pressure 8 mmHg [facility] [employer] Phone: Fractional Shortening 2D 18 % 28 - 44 % [facility] [employer] Phone: Interpretation and review of laboratory results Abnormal [facility] [employer] Phone: IVC Diameter 2.4 cm [facility] Work Phone: IVSd 1.5 cm Abnormal 0.6 - 1.0 cm [facility] [employer] Work Phone: LA Diameter 5.3 cm [facility] [employer] Work Phone: LA Size Index 2.04 cm/m2 [facility] [employer] Work Phone: LA Volume 2C 75 mL Abnormal 18 - 58 mL [facility] [employer] Work Phone: LA Volume 4C 84 mL Abnormal 18 - 58 mL [facility] [employer] Work Phone: LA Volume A/L 87 mL [facility] [employer] Work Phone: LA Volume BP 82 mL Abnormal 18 - 58 mL [facility] [employer] Work Phone: LA Volume Index 2C 29 mL/m2 16 - 34 mL/m2 [facility] [employer] Work Phone: LA Volume Index 4C 32 mL/m2 16 - 34 mL/m2 [facility] [employer] Work Phone: LA Volume Index A/L 33 mL/m2 16 - 34 mL/m2 [facility] [employer] Work Phone: LA Volume Index BP 32 ml/m2 16 - 34 ml/m2 [facility] [employer] Work Phone: LA/AO Root Ratio 1.66 [facility] [employer] Work Phone: Left ventricular Ejection fraction by US.2D+Calculated by biplane method of disks 38 % Abnormal 55 - 100 % [facility] [employer] Work Phone: LV E' Lateral Velocity 8 cm/s [facility] Work Phone: LV E' Septal Velocity 7 cm/s [facility] Work Phone: LV EDV A2C 225 mL [facility] Work Phone: LV EDV A4C 263 mL [facility] [employer] Work Phone: LV EDV BP 252 mL Abnormal 67 - 155 mL [facility] [employer] Work Phone: LV EDV Index A2C 87 mL/m2 [facility] [employer] Work Phone: LV EDV Index A4C 101 mL/m2 [employer] Work Phone: LV EDV Index BP 97 mL/m2 [employer] Work Phone: LV Ejection Fraction A2C 35 % [employer] Work Phone: LV Ejection Fraction A4C 36 % [employer] Work Phone: LV ESV A2C 147 mL [employer] Work Phone: LV ESV A4C 167 mL [employer] Work Phone: LV ESV BP 156 mL Abnormal 22 - 58 mL [employer] Work Phone: LV ESV Index A2C 57 mL/m2 [employer] Work Phone: LV ESV Index A4C 64 mL/m2 [employer] Phone: LV ESV Index BP 60 mL/m2 [employer] Phone: LV Mass 2D 452.4 g Abnormal 88 - 224 g [employer] Work Phone: LV Mass 2D Index 174 g/m2 Abnormal 49 - 115 g/m2 [employer] Work Phone: LV RWT Ratio 0.39 [employer] Phone: LVIDd 6.6 cm Abnormal 4.2 - 5.9 cm [employer] Phone: LVIDd Index 2.54 cm/m2 [employer] Work Phone: LVIDs 5.4 cm [employer] Work Phone: LVIDs Index 2.08 cm/m2 [employer] Work Phone: LVOT Cardiac Output 4.7 liter/mi nu te [employer] Work Phone: LVOT Diameter 2.2 cm [employer] Work Phone: LVOT Mean Gradient 3 mmHg [employer] Phone: LVOT Peak Gradient 5 mmHg [employer] Work Phone: LVOT Peak Velocity 1.1 m/s [employer] Work Phone: LVOT Stroke Volume Index 33.5 mL/m2 [facility] [employer] Work Phone: LVOT SV 87 ml [facility] [employer] Work Phone: LVOT VTI 22.9 cm [facility] [employer] Work Phone: LVPWd 1.3 cm Abnormal 0.6 - 1.0 cm [facility] [employer] Work Phone: MV A Velocity 0.76 m/s [facility] [employer] Work Phone: MV E Velocity 0.64 m/s [facility] [employer] Work Phone: MV E Wave Deceleration Time 291.3 ms [facility] [employer] Work Phone: MV E/A 0.84 [facility] [employer] Phone: Pulmonary Artery EDP 4 mmHg [facility] [employer] Work Phone: RA Area 4C 50.7 mL [facility] [employer] Work Phone: RV Basal Dimension 5.1 cm [facility] [employer] Work Phone: RV Free Wall Peak S' 18 cm/s [facility] [employer] Work Phone: RV Longitudinal Dimension 7.1 cm [facility] [employer] Work Phone: RV Mid Dimension 3.6 cm [facility] [employer] Work Phone: Sinotubular Junction 2.6 cm [facility] [employer] Work Phone: TAPSE 2.9 cm 1.7 cm [facility] [employer] Work Phone: [facility] [employer] Work Phone: Heart Transthoracicon Left Ventricle: Left ventricle is mildly dilated. LVIDd is 6.6 cm. Increased wall thickness. Septal thickening. IVSd is 1.5 cm. Moderately reduced left ventricular systolic function. EF by 2D Simpsons Biplane is 38%. Right Ventricle: Right ventricle is dilated. Normal systolic function. Echocardiographic features suggestive of a prominent moderator band. Right Atrium: Right atrium is mildly dilated. Aorta: Normal sized sinuses of Valsalva. Dilated ascending aorta. Ao ascending diameter is 4.7 cm. Left Ventricle Left ventricle is mildly dilated. LVIDd is 6.6 cm. Increased wall thickness. Septal thickening. IVSd is 1.5 cm. Moderately reduced left ventricular systolic function. EF by 2D Simpsons Biplane is 38%. Indeterminate diastolic function. Right Ventricle Right ventricle is dilated. Normal systolic function. Echocardiographic features suggestive of a prominent moderator band. Left Atrium Left atrium size is normal. Right Atrium Right atrium is mildly dilated. IVC/SVC IVC diameter is dilated and decreases greater than 50% during inspiration; therefore the estimated right atrial pressure is intermediate (~8 mmHg). Mitral Valve Valve structure is normal. Trace regurgitation. No stenosis noted. Tricuspid Valve Valve structure is normal. Trace regurgitation. Aortic Valve Not well visualized. Thickened cusps. No cusp calcification. Cusp sclerosis. No regurgitation. No stenosis. Pulmonic Valve Valve structure is normal. Mild (1+) regurgitation. Ascending Aorta Normal sized sinuses of Valsalva. Dilated ascending aorta. Ao ascending diameter is 4.7 cm. Pericardium No pericardial effusion. Septum No interatrial shunt visualized on color Doppler. Study Details Image quality: suboptimal. Heart rate: 52 bpm. Blood pressure: 138/75 mmHg. Cardiac history: prior PCI. Ultrasound enhancement agent was given to enhance imaging. CV [facility]ACS 37on 07-20-2024 37 Increase Ranexa to 1 000 mg in the am, and 500 mg in the evening. Normal [facility] Office Visiton 07-20-2024 Follow-up visit [id number] Shannon Olson Marlena 1955 M Date Provider Department Center 07/20/2024 [id number] [address] Family History Problem Relation Age of Onset Diabetes Paternal Grandmother Diabetes Maternal Grandfather Cancer Sister Hypertension Mother Diabetes Sister Diabetes Paternal Grandfather Heart disease Paternal Grandmother Heart disease Paternal Grandfather Cancer Father Diabetes Brother Family Status - Relation Status Age at Paternal Grandmother Maternal Grandfather Sister Mother Alive Paternal Grandfather Father Brother Level of Service:04729 SD OFFICE/OUTPATIENT ESTABLISHED MOD MDM 30 MIN Reason for Visit and Comments: Coronary Artery Disease [187] Normal [facility] Progress Noteon 07-20-2024 Progress Note [facility] [address] [facility] [address] Dept: [phone] Dept Visit Type: Established NAME: Shannon Olson : 1955 Reason for Visit: CAD / Angina Subjective HPI Shannon Olson is an 68 y.o. male, now followed by Dr. Ortega, with PMH of CAD, with multiple coronary stents in all 3 vessels. Most recent LHC, 02/2023, demonstrated an occluded RCA, with patent stents to LAD and Circumflex. Labs from 06/20/2024 stable. He was seen urgently 2 weeks ago, at which time, his antianginal medications were adjusted. Imdur was changed to 120 mg daily , ( not 60 mg bid), Norvasc increased to 10 mg daily, and Ranexa 500 mg bid. He presents for a 2 week follow-up visit, last weeks cancelled due to weather . Angina is better, but he is still using SL NTG prior to exertional activites. He lost 6 lbs since our last visit, with better eating habits .He has had minimal edema in his legs with increase dose of Norvasc. He is tolerating the Ranexa. He has updated his med list. He is no longer taking minoxidil, or Carafate. He is still waiting on his sleep apnea machine. He reports feeling 50% better, but still has some breakthrough angina even with prophylactic SL NTG. Continues to have intermittent dizziness, that has been on going for years. He also notes intermittent palpitations, and what feel like random electrical shocks in his hands and feet, at random times. These do not occur daily, but feel very strange. Echocardiogram has been scheduled for 08/10/2024. Allergies Allergen Reactions Penicillins Rash Current Outpatient Medications Medication Instructions amiodarone (PACERONE) 200 mg, Oral, Daily amLODIPine (NORVASC) 5 mg, Oral, 2 times daily cholecalciferol (VITAMIN D-3) 800 Units, Daily clopidogrel (PLAVIX) 75 mg, Oral, Daily Eliquis 5 mg, Oral, 2 times daily isosorbide mononitrate ER (IMDUR) 120 mg, Oral, Daily metoprolol tartrate (LOPRESSOR) 25 mg, Oral, 2 times daily minoxidil (LONITEN) 10 mg, Daily nitroglycerin (NITROSTAT) 0.4 mg, SubLINGual, Every 5 min PRN, May repeat dose every 5 minutes for up to 3 doses total. ranolazine (RANEXA) 500 mg, Oral, 2 times daily, Do not crush, chew, or split. rosuvastatin (CRESTOR) 40 mg, Oral, Daily spironolactone (ALDACTONE) 25 mg, Oral, 2 times daily sucralfate (CARAFATE) 1 g, 4 times daily before meals & nightly torsemide (Demadex) 20 MG tablet TAKE ONE TABLET BY MOUTH DAILY - Take1 additional tablet if weight gain more than 2 pounds in 1 day Past Medical History: Diagnosis Date Angina pectoris ([facility]) Anxiety Arrhythmia A-fib Asthma CAD (coronary artery disease) Cerebral artery occlusion with cerebral infarction ([facility]) COPD (chronic obstructive pulmonary disease) ([facility]) Depression WATTS (dyspnea on exertion) Fatigue GERD (gastroesophageal reflux disease) History of cardioversion 05/07/2016 Successful conversion of a-fib to SR History of left heart catheterization 05/07/2016 60% stenosis right posterior descending, patent stents in prox, mid & distal RCA, patent stents in med LCx. Findings unchanged from previous study. 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) ([facility]) 12/2012 NSTEMI (non-ST elevated myocardial infarction) ([facility]) ([facility]) 05/2014 Obesity Old PA (myocardial infarction) HIPOLITO (obstructive sleep apnea) HIPOLITO on CPAP PAF (paroxysmal atrial fibrillation) ([facility]) Rheumatoid arthritis(714.0) ([facility]) ST segment elevation myocardial infarction (STEMI) of anterolateral wall, subsequent episode of care ([facility]) ([facility]) TIA (transient ischemic attack) Social History Tobacco Use Smoking status: Never Smokeless tobacco: Never Substance Use Topics Alcohol use: Not Currently Past Surgical History: Procedure Laterality Date CAPSULOTOMY, HAND 05/07/2016 CARDIAC CATHETERIZATION N/A 03/01/2023 Performed by Zoie Gonzales MD at [facility] Cardiac Cath/EP Lab CARDIAC PROCEDURE Left 05/2015 CARDIAC PROCEDURE Left 06/03/2017 CARDIAC PROCEDURE Bilateral 01/2010 CARDIAC PROCEDURE Left 09/05/2019 PCI to distal RCA and PL branch CHOLECYSTECTOMY 10/30/2019 CORONARY ANGIOPLASTY WITH STENT PLACEMENT Left 11/2006 restent RCA, PHU to CX CORONARY ANGIOPLASTY WITH STENT PLACEMENT Left 05/2014 PTCA /cuttung balloon to instent restenosis RCA CORONARY ANGIOPLASTY WITH STENT PLACEMENT Left 10/2006 DESto prox Rt PAV, mid & dist RCA CORONARY ANGIOPLASTY WITH STENT PLACEMENT Left 11/2014 PHU to RCA CORONARY ANGIOPLASTY WITH STENT PLACEMENT Left 10/2007 PHU to Prox Rt PAV, mid-dist RCA CORONARY ANGIOPLASTY WITH STENT PLACEMENT Left 03/2009 PHU to mid RCA CORONARY ANGIOPLASTY WITH STENT PLACEMENT Left 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 [facility] 36on 07-13-2024 36 Patient cancelled hi s appt today, due to bad weather. He is feeling a little better. Has used SL NTG a few times. He is R/S for next week. [place] [address] Name of Caller: Shannon Contact Reason for Appointment: Cancel and R/S 07/13/2024 at 130pm due to weather Office Name: [facility] [address] Medication Refills need, if any: no Medication Name: no [facility] 3607-06-2024 36 Phone call to merle laws , He is having increased angina, Agreeable to OV today at 2:30 pm. Normal [facility] 36 Patient called into office stating he has had chest pain after walking few weeks. States chest pain is worse after eating then going for a walk. This morning he did not eat and had the chest pain while walking. Rated pain 6/10 mid sternal associated with SOB. He rested and took 1 nitroglycerin tablet, relieved pain to 1/10. BP lately has been 120s-130s/60s. Patient states during episode he will get slightly dizzy. Complaint with medication list. Patient willing to come in for appt if appropriate. 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 [facility] 36 Patient c/o CP walki ng around the house today. nitroglycerin has eased some of the pain, some SOB when he walks. Requesting an appt today. [facility] 3707-06-2024 37 Increase Norvasc ( Amlodipine ) to 5 mg twice a day Start Taking Isosorbide Mononitrate 2 tablets together in the am Start Ranexa ( Ranolazine ) 500 mg twice day 4. Please check if you are taking Carafate 4 times a day ( From GI doctor) 5. Use SL NTG prior to going outside or doing chores. 7 Normal [facility] Office Visiton 07-06-2024 Follow-up visit [id number] Shannon Olson 1955 M Date Provider Department Center 07/06/2024 [id number] MCCLENDON [facility]A [facility] 95 Ar Family History Problem Relation Age of Onset Diabetes Paternal Grandmother Diabetes Maternal Grandfather Cancer Sister Hypertension Mother Diabetes Sister Diabetes Paternal Grandfather Heart disease Paternal Grandmother Heart disease Paternal Grandfather Cancer Father Diabetes Brother Family Status - Relation Status Age at Paternal Grandmother Maternal Grandfather Sister Mother Alive Paternal Grandfather Father Brother Level of Service:59349 SD OFFICE/OUTPATIENT ESTABLISHED MOD MDM 30 MIN Reason for Visit and Comments: Follow-up [075858] Chest Pain [936377] Dizziness [273594] Normal [facility] Progress Noteon 07-06-2024 Progress Note [facility] [address] [facility] [address] Dept: [phone] Dept Visit Type: Established NAME: Shannon Olson : 1955 Reason for Visit: Follow-up, Chest Pain, and Dizziness Subjective HPI Shannon Olson is an 68 y.o. male, now followed by Dr. Ortega, with PMH of CAD, with multiple coronary stents in all 3 vessels. Most recent C, 02/2023, demonstrated an occluded RCA, with patent stents to LAD and Circumflex. Labs from 06/20/2024 stable. He contacted the office today with complaints of escalating angina. He has stopped his IMDUR and ranexa?? He reports daily angina since the cold weather. He has been taking Imdur 60 mg twice a day . He did stop the Ranexa after he saw Dr. Ortega. He did not stop the Imdur. He is not sure if he is on Carafate anymore. This a.m. he had an episode of angina that nearly prompted him to call 911. However he took 1 sublingual nitroglycerin with relief. This is the first time he took a sublingual nitroglycerin tablet. He is not sure how he is taking his medicines or which ones he took this morning, but he does take all of them. He is now retired. He does get some of his medications through the patient taurus program through our pharmacy. EKG demonstrates normal sinus rhythm with a left bundle branch block. He has an intermittent left bundle branch block on previous EKG' s as well. He has been working with pulmonary and sleep medicine regarding his CPAP machine, currently he is not using it. He states he was never seen in weight management nor have they contacted him. He is interested in trying a GLP-1 agonist in this for weight loss assistance. Allergies Allergen Reactions Penicillins Rash Current Outpatient Medications Medication Instructions amiodarone (PACERONE) 200 mg, Oral, Daily amLODIPine (NORVASC) 5 mg, Oral, 2 times daily cholecalciferol (VITAMIN D-3) 800 Units, Daily clopidogrel (PLAVIX) 75 mg, Oral, Daily Eliquis 5 mg, Oral, 2 times daily isosorbide mononitrate ER (IMDUR) 120 mg, Oral, Daily metoprolol tartrate (LOPRESSOR) 25 mg, Oral, 2 times daily minoxidil (LONITEN) 10 mg, Daily nitroglycerin (NITROSTAT) 0.4 mg, SubLINGual, Every 5 min PRN, May repeat dose every 5 minutes for up to 3 doses total. ranolazine (RANEXA) 500 mg, Oral, 2 times daily, Do not crush, chew, or split. rosuvastatin (CRESTOR) 40 mg, Oral, Daily spironolactone (ALDACTONE) 25 mg, Oral, 2 times daily sucralfate (CARAFATE) 1 g, 4 times daily before meals & nightly torsemide (Demadex) 20 MG tablet TAKE ONE TABLET BY MOUTH DAILY - Take1 additional tablet if weight gain more than 2 pounds in 1 day Past Medical History: Diagnosis Date Angina pectoris [...] management advised HTN (hypertension) Hyperlipidemia Hypertension Hypokalemia [facility] current use of antiarrhythmic drug [facility] current use of anticoagulant NSTEMI (non-ST elevated myocardial infarction) ([facility]) ([facility]) 12/2012 NSTEMI (non-ST elevated myocardial infarction) ([facility]) ([facility]) 05/2014 Obesity Old PA (myocardial infarction) HIPOLITO (obstructive sleep apnea) HIPOLITO on CPAP PAF (paroxysmal atrial fibrillation) ([facility]) Rheumatoid arthritis(714.0) ([facility]) ST segment elevation myocardial infarction (STEMI) of anterolateral wall, subsequent episode of care ([facility]) ([facility]) TIA (transient ischemic attack) Social History Tobacco Use Smoking status: Never Smokeless tobacco: Never Substance Use Topics Alcohol use: Not Currently Past Surgical History: Procedure Laterality Date CAPSULOTOMY, HAND 05/07/2016 CARDIAC CATHETERIZATION N/A 03/01/2023 Performed by Zoie Gonzales MD at [facility] Cardiac Cath/EP Lab CARDIAC PROCEDURE Left 05/2015 CARDIAC PROCEDURE Left 06/03/2017 CARDIAC PROCEDURE Bilateral 01/2010 CARDIAC PROCEDURE Left 09/05/2019 PCI to distal RCA and PL branch CHOLECYSTECTOMY 10/30/2019 CORONARY ANGIOPLASTY WITH STENT PLACEMENT Left 11/2006 restent RCA, PHU to CX CORONARY ANGIOPLASTY WITH STENT PLACEMENT Left 05/2014 PTCA /cuttung balloon to instent restenosis RCA CORONARY ANGIOPLASTY WITH STENT PLACEMENT Left 10/2006 DESto prox Rt PAV, mid & dist RCA CORONARY ANGIOPLASTY WITH STENT PLACEMENT Left 11/2014 PHU to RCA CORONARY ANGIOPLASTY WITH STENT PLACEMENT Left 10/2007 PHU to Prox Rt PAV, mid-dist RCA CORONARY ANGIOPLASTY WITH STENT PLACEMENT Le (more content not included)... Normal [facility] 12 Lead EKGon 06-20-2024 12 Lead EKG [facility] Cardiovascular Services [address] [place] [address] 12 Lead EKG 06/20/24 0759 MR#: [id number] Acct: [id number] Name: SHANNON OLSON Rep #: [id number] : 1955 68 From: Juan Sams MD Attending Dr: JG DENT Status: REG CLI Ordering Dr: JG DENT Date: 06/20/24 Location: [facility] Sex: M C Admitted: Test Reason : AFIB Blood Pressure : */* mmHG Vent. Rate : 57 BPM Atrial Rate : 57 BPM P-R Int : 188 ms QRS Dur : 144 ms QT Int : 484 ms P-R-T Axes : 41 52 -72 degrees QTcB Int : 471 ms Sinus bradycardia with occasional Premature ventricular complexes Possible Left atrial enlargement Left bundle branch block Abnormal ECG Confirmed by LATRELL ALVARADO, ROCÍO ([id number]), news video editor GIA LING ([id number]) on 06/21/2024 6:31:28 AM Referred By: JG DENT Confirmed By: ROCÍO SAMS MD 06/21/24 0631 Date Juan Sams MD CC: Dr. Finn Ferrell MD; JG DENT Signed Normal [facility] Albumin to globulin ratioon 06-20-2024 Albumin/Globulin [Mass ratio] 0.9 {ratio} 0.9-2.4 [facility] Bilirubin, totalon Bilirubin [Mass/Vol] 1.10 mg/dL High 0.20-1.00 [facility] Comment on above: For patients on eltr ombopag therapy, use of Dimension Mora TBIL is not recommended. Blood urea nitrogen (BUN)/cr eatinine ratioon 06-20-2024 Urea nitrogen/Creatinine [Mass ratio] 16.4 mg/mg 10-20 [facility] CBC-Complete Blood Cnt No Di ffon 06-20-2024 Erythrocyte distribution width (RBC) [Ratio] 14.7 % High 11.6-14.6 [facility] Comment on above: Performed By: #### L 100.0500, L500.4050, L501.9520 #### [facility] [address] [place], [place], [id number] Hematocrit (Bld) [Volume fraction] 43.0 % Normal 40-54 [facility] Comment on above: Performed By: #### L 100.0500, L500.4050, L501.9520 #### [facility] [address] [place], [address] Hemoglobin (Bld) [Mass/Vol] 13.6 g/dL Normal 13.0-16.5 [facility] Comment on above: Performed By: #### L 100.0500, L500.4050, L501.9520 #### [facility] [address] [place], [address] MCH (RBC) [Entitic mass] 29.1 pg Normal 27.0-32.0 [facility] Comment on above: Performed By: #### L 100.0500, L500.4050, L501.9520 #### [facility] [address] [place], [address] MCHC (RBC) [Mass/Vol] 31.6 g/dL Low 32-36 [facility] Comment on above: Performed By: #### L 100.0500, L500.4050, L501.9520 #### [facility] [address] [place], [address] MCV (RBC) [Entitic vol] 91.9 fL Normal 80-94 [facility] Comment on above: Performed By: #### L 100.0500, L500.4050, L501.9520 #### [facility] [address] [place], [address] Platelet mean volume (Bld) [Entitic vol] 9.2 fL Normal 6.2-12.0 [facility] Comment on above: Performed By: #### L 100.0500, L500.4050, L501.9520 #### [facility] [address] [place], [address] Platelets (Bld) [#/Vol] 244 10*3/uL Normal 150-450 [facility] Comment on above: Performed By: #### L 100.0500, L500.4050, L501.9520 #### [facility] [address] [place], [address] RBC (Bld) [#/Vol] 4.68 10*6/uL Normal 4.6-6.2 [facility] Comment on above: Performed By: #### L 100.0500, L500.4050, L501.9520 #### [facility] [address] [place], [address] RDW SD 49.7 fl High 35.1-43.9 [facility] Comment on above: Performed By: #### L 100.0500, L500.4050, L501.9520 #### [facility] [address] [place], [address] WBC (Bld) [#/Vol] 7.2 10*3/uL Normal 4.4-11.0 [facility] Comment on above: Performed By: #### L 100.0500, L500.4050, L501.9520 #### [facility] [address] [place], [address] Carbon dioxide measurementon 06-20-2024 CO2 [Moles/Vol] 26.0 mmol/L 21.0-32.0 [facility] Chest 1 Viewon 06-20-2024 Chest 1 View [facility] Imaging Services [address] [place] [address] Chest 1 View MR#: [id number] Acct: [id number] Name: SHANNON OLSON Rep #: [id number] : 1955 Anthony Card From: Dom Echols PCP: Dr. Finn Ferrell MD Status: REG CLI Study: Chest 1 View Date of Exam: 06/20/24 Exam# [id number] Ordering Dr: JG DENT PROCEDURE: CHEST 1 VIEW TECHNIQUE: Single frontal image including the chest and abdomen. COMPARISON: Chest x-ray of 03/26/2024. FINDINGS: Atrial fibrillation. RAD/Chest 1 View IMPRESSION: Partially visualized right shoulder prosthesis again seen. No interval osseous changes noted. Examination somewhat limited by patient motion. No evidence of pulmonary edema. No acute pneumonic process is seen. No pleural effusion or pneumothorax is noted. The cardiomediastinal silhouette is remarkable for a mildly tortuous aorta. No evidence of cardiomegaly. Reading Location: [address] CC: Dr. Finn Ferrell MD; JG DENT Machine Shop Instructor: Signed Normal [facility] Chloride measurementon 06-20 Chloride [Moles/Vol] 107 mmol/L 98-107 [facility] Comprehensive Metabolic Prof ilon 06-20-2024 Albumin [Mass/Vol] 3.6 g/dL Normal 3.2-5.0 [facility] Comment on above: Performed By: #### L 100.0500, L500.4050, L501.9520 #### [facility] [address] [facility] [place], [address] Albumin/Globulin [Mass ratio] 0.9 {ratio} Normal 0.9-2.4 [facility] Comment on above: Performed By: #### L 100.0500, L500.4050, L501.9520 #### [facility] [address] [place], [address] ALK P 105 U/L Normal 45-117 [facility] Comment on above: Performed By: #### L 100.0500, L500.4050, L501.9520 #### [facility] [address] [facility] [place], [address] ALT [Catalytic activity/Vol] 37 U/L Normal 16-61 [facility] Comment on above: Performed By: #### L 100.0500, L500.4050, L501.9520 #### [facility] [address] [place], [address] AST [Catalytic activity/Vol] 18 U/L Normal 15-37 [facility] Comment on above: Performed By: #### L 100.0500, L500.4050, L501.9520 #### [facility] [address] [place], [address] Bilirubin [Mass/Vol] 1.10 mg/dL High 0.20-1.00 [facility] Comment on above: Result Comment: For patients on eltrombopag therapy, use of Dimension Mora TBIL is not recommended. Performed By: #### L 100.0500, L500.4050, L501.9520 #### [facility] [address] [place], [address] BUN/CRE 16.4 RATIO Normal 10-20 [facility] Comment on above: Performed By: #### L 100.0500, L500.4050, L501.9520 #### [facility] [address] [place], [address] CA,Total 9.9 mg/dL Normal 8.5-10.1 [facility] Comment on above: Performed By: #### L 100.0500, L500.4050, L501.9520 #### [facility] [address] [place], [address] Chloride [Moles/Vol] 107 mmol/L Normal 98-107 [facility] Comment on above: Performed By: #### L 100.0500, L500.4050, L501.9520 #### [facility] [address] [place], [address] CO2 [Moles/Vol] 26.0 mmol/L Normal 21.0-32.0 [facility] Comment on above: Performed By: #### L 100.0500, L500.4050, L501.9520 #### [facility] [address] [place], [address] Creatinine [Mass/Vol] 1.28 mg/dL Normal 0.70-1.30 [facility] Comment on above: Result Comment: The validity of the calculated GFR GFRAA in patients over 70 years has not been determined. Clinical correlation is essential. Performed By: #### L 100.0500, L500.4050, L501.9520 #### [facility] [address] [place], [address] EST GFR - AA 72 mL/min Normal >60 [facility] Comment on above: Result Comment: Afri can Guinean GFR Calc Performed By: #### L 100.0500, L500.4050, L501.9520 #### [facility] [address] [place], [address] GAP 7 Normal 5-15 [facility] Comment on above: Performed By: #### L 100.0500, L500.4050, L501.9520 #### [facility] [address] [place], [address] GFR/1.73 sq M.predicted among non-blacks MDRD (S/P/Bld) [Vol rate/Area] 59 mL/min/{1.73_m2} Low >60 [facility] Comment on above: Result Comment: Non- GFR Calc Performed By: #### L 100.0500, L500.4050, L501.9520 #### [facility] [address] [place], [address] Globulin (S) [Mass/Vol] 4.0 g/dL Normal 2.2-4.2 [facility] Comment on above: Performed By: #### L 100.0500, L500.4050, L501.9520 #### [facility] [address] [place], [address] Glucose [Mass/Vol] 136 mg/dL High 74-106 [facility] Comment on above: Result Comment: Fast ing Glucose result greater than or equal to 126 mg/dL suggests DIABETES MELLITUS per A.D.A. criteria. Performed By: #### L 100.0500, L500.4050, L501.9520 #### [facility] [address] [place], [address] Potassium [Moles/Vol] 3.9 mmol/L Normal 3.5-5.1 [facility] Comment on above: Performed By: #### L 100.0500, L500.4050, L501.9520 #### [facility] [address] [place], [address] Sodium [Moles/Vol] 140 mmol/L Normal 136-145 [facility] Comment on above: Performed By: #### L 100.0500, L500.4050, L501.9520 #### [facility] [address] [place], [address] T PROT 7.6 g/dL Normal 6.4-8.2 [facility] Comment on above: Performed By: #### L 100.0500, L500.4050, L501.9520 #### [facility] [address] [place], [address] Urea nitrogen [Mass/Vol] 21 mg/dL High 7-18 [facility] Comment on above: Performed By: #### L 100.0500, L500.4050, L501.9520 #### [facility] [address] [place], [address] Erythrocyte distribution wid th (RBC) [Ratio]on 06-20-2024 Erythrocyte distribution width (RBC) [Entitic vol] 49.7 fL High 35.1-43.9 [facility] Erythrocyte distribution wid th ratioon 06-20-2024 Erythrocyte distribution width (RBC) [Ratio] 14.7 % High 11.6-14.6 [facility] Estimated glomerular filtrat ion rate (GFR) Americanon 06-20-2024 Estimated GFR (MDRD) Amer 72 mL/min >60 [facility] Comment on above: GFR Calc Glomerular filtration rate ( GFR) estimationon 06-20-2024 Estimated GFR (MDRD) Non-Af Amer 59 mL/min Low >60 [facility] Comment on above: Non- GFR Calc Glucose measurementon 2024 Glucose [Mass/Vol] 136 mg/dL High 74-106 [facility] Comment on above: Fasting Glucose resu lt greater than or equal to 126 mg/dL suggests DIABETES MELLITUS per A.D.A. criteria. Hematocrit Auto (Bld) [Volum e fraction]on 06-20-2024 Hematocrit (Bld) [Volume fraction] 43.0 % 40-54 [facility] Hemoglobin measurementon Hemoglobin (Bld) [Mass/Vol] 13.6 g/dL 13.0-16.5 [facility] Laboratory - Chemistry and C hemistry - challengeon 06-20-2024 AST [Catalytic activity/Vol] 18 U/L 15-37 [facility] MCV (mean corpuscular volume ) determinationon 06-20-2024 MCV (RBC) [Entitic vol] 91.9 fL 80-94 [facility] Mean corpuscular hemoglobin (MCH) determinationon 06-20-2024 MCH (RBC) [Entitic mass] 29.1 pg 27.0-32.0 [facility] Mean corpuscular hemoglobin concentration (MCHC) determinationon 06-20-2024 MCHC (RBC) [Mass/Vol] 31.6 g/dL Low 32-36 [facility] Mean platelet volume determi nationon 06-20-2024 Platelet mean volume (Bld) [Entitic vol] 9.2 fL 6.2-12.0 [facility] Platelet counton 06-20-2024 Platelets (Bld) [#/Vol] 244 10*3/uL 150-450 [facility] Potassium measurementon 05-25 Potassium [Moles/Vol] 3.9 mmol/L 3.5-5.1 [facility] RBC Auto (Bld) [#/Vol]on RBC (Bld) [#/Vol] 4.68 10*6/uL 4.6-6.2 [facility] Serum anion gap measuremento n 06-20-2024 Anion gap [Moles/Vol] 7 mmol/L 5-15 [facility] Serum globulin measurementon 06-20-2024 Globulin (S) [Mass/Vol] 4.0 g/dL 2.2-4.2 [facility] Serum or plasma alanine newman otransferase (ALT) measurementon 06-20-2024 ALT [Catalytic activity/Vol] 37 U/L 16-61 [facility] Serum or plasma albumin renu urement (mass/volume)on 06-20-2024 Albumin [Mass/Vol] 3.6 g/dL 3.2-5.0 [facility] Serum or plasma alkaline christal sphatase measurementon 06-20-2024 ALP [Catalytic activity/Vol] 105 U/L 45-117 [facility] Serum or plasma calcium renu urement (mass/volume)on 06-20-2024 Calcium [Mass/Vol] 9.9 mg/dL 8.5-10.1 [facility] Serum or plasma creatinine m easurement (mass/volume)on 06-20-2024 Creatinine [Mass/Vol] 1.28 mg/dL 0.70-1.30 [facility] Comment on above: The validity of the calculated GFR & GFRAA in patients over 70 years has not been determined. Clinical correlation is essential. Serum or plasma urea nitroge n measurement (mass/volume)on 06-20-2024 Urea nitrogen [Mass/Vol] 21 mg/dL High 7-18 [facility] Sodium levelon 06-20-2024 Sodium [Moles/Vol] 140 mmol/L 136-145 [facility] TSH Qnon 06-20-2024 Thyroid Stimulating Hormone (TSH) 1.220 uIU/mL 0.358-3.74 0 [facility] Thyroid Stim Hormone (TSH)on 06-20-2024 TSH 1.220 uIU/mL Normal 0.358-3.74 0 [facility] Comment on above: Performed By: #### L 100.0500, L500.4050, L501.9584 #### [facility] [address] [place], [address] Total proteinon 06-20-2024 Protein [Mass/Vol] 7.6 g/dL 6.4-8.2 [facility] White blood cell (WBC) count on 06-20-2024 WBC (Bld) [#/Vol] 7.2 10*3/uL 4.4-11.0 [facility] 36on 06-06-2024 36 For amio refill, pat ient needs: CMP, TSH, CXR, and EKG Recommend CBC give OAC and antiplatelet. [facility] 36 Will route all cardi ac medications to [facility] pharmacy. ISACC Dr. Ortega 02/01/24. Labs completed by PCP office 12/01/23. [place] Quick to update patient and will not route to carafate, vitamin D, Miralax or Loniten [facility] 36 Patient called b/c h e went to [facility] pharm to brain picker torsemide 20mg and he was told that he can not use the [facility] pharmacy any longer as they are now OON with his rx coverage. He used to get medications through our pharmacy and he is wondering if he can get all his meds changed to get through us. [facility] 36on 05-22-2024 36 I spoke w/ pt, tara rmed RX request. [facility] 36 Patient requesting r efill Imdur (isosorbide) 60mg metoprolol tartrate (Lopressor) 25 MG tablet [facility] pharm verified Normal [facility] 36on 05-03-[address] Ortega 02/01/24. Pended rx, Kayla Spain METAL TILE LATHER to sign. [facility] 36 Requesting refill amLODIPine (Norvasc) 5 MG tablet [facility] verified [facility] 36on 04-28-2024 36 Received fax from [facility] for refill of rosuvastatin 40 mg daily. ISACC Ortega 02/01/24. Lipid panel completed 02/19/23. Pended rx, Rika Jenkins METAL TILE LATHER to sign. Normal [facility] CBC W/Diff, Automatedon 12-0 -2023 Absolute Lymph 1.33 X10 3/uL Normal 0.83-4.51 [facility] Comment on above: Order Comment: Order Date: 04/28/24Order Info: 4-1 - CBCD Performed By: #### L 501.9910 #### [facility] [address] [place], [address] Absolute Neut 11.5 X10 3/uL High 2.0-7.7 [facility] Comment on above: Order Comment: Order Date: 04/28/24Order Info: 183- - CBCD Performed By: #### L 501.9910 #### [facility] [address] [place], [address] Basophils/100 WBC (Bld) 0.4 % Normal 0-1 [facility] Comment on above: Order Comment: Order Date: 04/28/24Order Info: 183- - CBCD Performed By: #### L 501.9910 #### [facility] [address] [place], [address] Eosinophils/100 WBC (Bld) 0.0 % Normal 0-5 [facility] Comment on above: Order Comment: Order Date: 04/28/24Order Info: 018- - CBCD Performed By: #### L 501.9910 #### [facility] [address] [place], [address] Erythrocyte distribution width (RBC) [Ratio] 14.9 % High 11.6-14.6 [facility] Comment on above: Order Comment: Order Date: 04/28/24Order Info: 0184-1 - CBCD Performed By: #### L 501.9910 #### [facility] [address] [place], [address] Hematocrit (Bld) [Volume fraction] 41.7 % Normal 40-54 [facility] Comment on above: Order Comment: Order Date: 04/28/24Order Info: 0184- - CBCD Performed By: #### L 501.9910 #### [facility] [address] [place], [address] Hemoglobin (Bld) [Mass/Vol] 13.4 g/dL Normal 13.0-16.5 [facility] Comment on above: Order Comment: Order Date: 04/28/24Order Info: 183- - CBCD Performed By: #### L 501.9910 #### [facility] [address] [place], [address] IG% 1.700 High 0.0-0.9 [facility] Comment on above: Order Comment: Order Date: 04/28/24Order Info: 183- - CBCD Result Comment: IG% - Immature Granulocytes (promyelocytes, myelocytes and metamyelocytes) > 1% indicates that a LEFT SHIFT is Present. Performed By: #### L 501.9910 #### [facility] [address] [place], [address] Lymphocytes/100 WBC (Bld) 9.8 % Low 19-41 [facility] Comment on above: Order Comment: Order Date: 04/28/24Order Info: 018- - CBCD Performed By: #### L 501.9910 #### [facility] [address] [place], [address] MCH (RBC) [Entitic mass] 29.1 pg Normal 27.0-32.0 [facility] Comment on above: Order Comment: Order Date: 04/28/24Order Info: [id number] - CBCD Performed By: #### L [id number] #### [facility] [address] [place], [address] MCHC (RBC) [Mass/Vol] 32.1 g/dL Normal 32-36 [facility] Comment on above: Order Comment: Order Date: 04/28/24Order Info: 018- - CBCD Performed By: #### L 501.9910 #### [facility] [address] [place], [address] MCV (RBC) [Entitic vol] 90.5 fL Normal 80-94 [facility] Comment on above: Order Comment: Order Date: 04/28/24Order Info: 4- - CBCD Performed By: #### L 501.9910 #### [facility] [address] [place], [address] Monocytes/100 WBC (Bld) 3.9 % Normal 0-10 [facility] Comment on above: Order Comment: Order Date: 04/28/24Order Info: 183- - CBCD Performed By: #### L 501.9910 #### [facility] [address] [place], [address] Neutrophils/100 WBC (Bld) 84.2 % High 47-70 [facility] Comment on above: Order Comment: Order Date: 04/28/24Order Info: 183- - CBCD Performed By: #### L 501.9910 #### [facility] [address] [place], [address] Nucleated RBC (Bld) [#/Vol] 0 10*3/uL Normal 0-5 [facility] Comment on above: Order Comment: Order Date: 04/28/24Order Info: 018- - CBCD Performed By: #### L 501.9910 #### [facility] [address] [place], [address] Platelet mean volume (Bld) [Entitic vol] 9.6 fL Normal 6.2-12.0 [facility] Comment on above: Order Comment: Order Date: 04/28/24Order Info: 0184-1 - CBCD Performed By: #### L 501.9910 #### [facility] [address] [place], [address] Platelets (Bld) [#/Vol] 283 10*3/uL Normal 150-450 [facility] Comment on above: Order Comment: Order Date: 04/28/24Order Info: 018- - CBCD Performed By: #### L 501.9910 #### [facility] [address] [place], [address] RBC (Bld) [#/Vol] 4.61 10*6/uL Normal 4.6-6.2 [facility] Comment on above: Order Comment: Order Date: 04/28/24Order Info: 018- - CBCD Performed By: #### L 501.9910 #### [facility] [address] [place], [address] RDW SD 48.7 fl High 35.1-43.9 [facility] Comment on above: Order Comment: Order Date: 04/28/24Order Info: 018- - CBCD Performed By: #### L 501.9910 #### [facility] [address] [place], [address] WBC (Bld) [#/Vol] 13.6 10*3/uL High 4.4-11.0 [facility] Comment on above: Order Comment: Order Date: 04/28/24Order Info: 018- - CBCD Performed By: #### L 501.9910 #### [facility] [address] [place], [address] Comprehensive Metabolic Prof mson 04-28-2024 Albumin [Mass/Vol] 3.7 g/dL Normal 3.2-5.0 [facility] Comment on above: Order Comment: Order Date: 04/28/24Order Info: 0786-1 - CMPOrder Info: [id number] - LIPIDOrder Info: 3084-1 - URICOrder Info: 2777-1 - PHOSOrder Info: [id number] - MGOrder Info: 3016-3 - TSHOrder Info: 2500-7 - TIBCOrder Info: 9298-4 - FEOrder Info: 2275-4 - FEROrder Info: 8 - FOLSN Performed By: #### L 501.0900 #### [facility] [address] [place], [address] Albumin/Globulin [Mass ratio] 1.0 {ratio} Normal 0.9-2.4 [facility] Comment on above: Order Comment: Order Date: 04/28/24Order Info: 0786-1 - CMPOrder Info: [id number] - LIPIDOrder Info: 3084-1 - URICOrder Info: 2777-1 - PHOSOrder Info: 30992-6 - MGOrder Info: 3016-3 - TSHOrder Info: 2500-7 - TIBCOrder Info: 249-4 - FEOrder Info: 2275-08 - FEROrder Info: 8 - FOLSN Performed By: #### L 501.0900 #### [facility] [address] [place], [address] ALK P 101 U/L Normal 45-117 [facility] Comment on above: Order Comment: Order Date: 04/28/24Order Info: 0786-1 - CMPOrder Info: [id number] - LIPIDOrder Info: 3084-1 - URICOrder Info: 2777-1 - PHOSOrder Info: 58632-0 - MGOrder Info: 3016-3 - TSHOrder Info: 2500-7 - TIBCOrder Info: 249-4 - FEOrder Info: 2275-4 - FEROrder Info: 8 - FOLSN Performed By: #### L 501.0900 #### [facility] [address] [place], [address] ALT [Catalytic activity/Vol] 40 U/L Normal 16-61 [facility] Comment on above: Order Comment: Order Date: 04/28/24Order Info: 0786-1 - CMPOrder Info: 81856-0 - LIPIDOrder Info: 3084-1 - URICOrder Info: 2777-1 - PHOSOrder Info: 63250-1 - MGOrder Info: 3016-3 - TSHOrder Info: 2500-7 - TIBCOrder Info: 2498-4 - FEOrder Info: 2276-4 - FEROrder Info: 228-8 - FOLSN Performed By: #### L 501.0900 #### [facility] [address] [place], [place], [address] AST [Catalytic activity/Vol] 12 U/L Low 15-37 [facility] Comment on above: Order Comment: Order Date: 04/28/24Order Info: 0786-1 - CMPOrder Info: 73577-2 - LIPIDOrder Info: 3084-1 - URICOrder Info: 2777-1 - PHOSOrder Info: 24542-8 - MGOrder Info: 3016-3 - TSHOrder Info: 2500-7 - TIBCOrder Info: 2498-4 - FEOrder Info: 2276-4 - FEROrder Info: 228-8 - FOLSN Performed By: #### L 501.0900 #### [facility] [address] [place], [place], [address] Bilirubin [Mass/Vol] 1.30 mg/dL High 0.20-1.00 [facility] Comment on above: Order Comment: Order Date: 04/28/24Order Info: 0786-1 - CMPOrder Info: [id number] - LIPIDOrder Info: 3084-1 - URICOrder Info: 2777-1 - PHOSOrder Info: 82033-0 - MGOrder Info: 3016-3 - TSHOrder Info: 2499-7 - TIBCOrder Info: 2498-4 - FEOrder Info: 2276-4 - FEROrder Info: 2284-8 - FOLSN Result Comment: For patients on eltrombopag therapy, use of Dimension Mora TBIL is not recommended. Performed By: #### L 501.0900 #### [facility] [address] [place], [place], [address] BUN/CRE 20.4 RATIO High 10-20 [facility] Comment on above: Order Comment: Order Date: 04/28/24Order Info: 0786-1 - CMPOrder Info: [id number] - LIPIDOrder Info: 3084-1 - URICOrder Info: 2777-1 - PHOSOrder Info: 73395-7 - MGOrder Info: 3016-3 - TSHOrder Info: 2500-7 - TIBCOrder Info: 2498-4 - FEOrder Info: 2276-4 - FEROrder Info: 2284-8 - FOLSN Performed By: #### L 501.0900 #### [facility] [address] [place], [address] CA,Total 9.5 mg/dL Normal 8.5-10.1 [facility] Comment on above: Order Comment: Order Date: 04/28/24Order Info: 0786-1 - CMPOrder Info: 68611-9 - LIPIDOrder Info: 3084-1 - URICOrder Info: 7-1 - PHOSOrder Info: 74541-5 - MGOrder Info: 3016-3 - TSHOrder Info: 2500-7 - TIBCOrder Info: 2498-4 - FEOrder Info: 2276-4 - FEROrder Info: 2284-8 - FOLSN Performed By: #### L 501.0900 #### [facility] [address] [place], [address] Chloride [Moles/Vol] 105 mmol/L Normal 98-107 [facility] Comment on above: Order Comment: Order Date: 04/28/24Order Info: 0786-1 - CMPOrder Info: 09027-9 - LIPIDOrder Info: 3084-1 - URICOrder Info: 2777-1 - PHOSOrder Info: 66949-9 - MGOrder Info: 3016-3 - TSHOrder Info: 2500-7 - TIBCOrder Info: 2498-4 - FEOrder Info: 2276-4 - FEROrder Info: 2284-8 - FOLSN Performed By: #### L 501.0900 #### [facility] [address] [place], [address] CO2 [Moles/Vol] 26.0 mmol/L Normal 21.0-32.0 [facility] Comment on above: Order Comment: Order Date: 04/28/24Order Info: 0786-1 - CMPOrder Info: [id number] - LIPIDOrder Info: 3084-1 - URICOrder Info: 2777-1 - PHOSOrder Info: 09488-9 - MGOrder Info: 3016-3 - TSHOrder Info: 2500-7 - TIBCOrder Info: 2498-4 - FEOrder Info: 2276-4 - FEROrder Info: 2284-8 - FOLSN Performed By: #### L 501.0900 #### [facility] [address] [place], [place], [address] Creatinine [Mass/Vol] 1.52 mg/dL High 0.70-1.30 [facility] Comment on above: Order Comment: Order Date: 04/28/24Order Info: 0786-1 - CMPOrder Info: [id number] - LIPIDOrder Info: 3084-1 - URICOrder Info: 2777-1 - PHOSOrder Info: 72384-3 - MGOrder Info: 3016-3 - TSHOrder Info: 2500-7 - TIBCOrder Info: 2498-4 - FEOrder Info: 2276-4 - FEROrder Info: 2284-8 - FOLSN Result Comment: The validity of the calculated GFR GFRAA in patients over 70 years has not been determined. Clinical correlation is essential. Performed By: #### L 501.0900 #### [facility] [address] [place], [place], [address] EST GFR - AA 59 mL/min Low >60 [facility] Comment on above: Order Comment: Order Date: 04/28/24Order Info: 0786-1 - CMPOrder Info: 85825-0 - LIPIDOrder Info: 3084-1 - URICOrder Info: 2777-1 - PHOSOrder Info: 64735-0 - MGOrder Info: 3016-3 - TSHOrder Info: 2500-7 - TIBCOrder Info: 2498-4 - FEOrder Info: 2276-4 - FEROrder Info: 2284-8 - FOLSN Result Comment: Afri can [place] GFR Calc Performed By: #### L 501.0900 #### [facility] [address] [place], [address] GAP 8 Normal 5-15 [facility] Comment on above: Order Comment: Order Date: 04/28/24Order Info: 0786-1 - CMPOrder Info: 53813-8 - LIPIDOrder Info: 3084-1 - URICOrder Info: 2777-1 - PHOSOrder Info: 82843-3 - MGOrder Info: 3016-3 - TSHOrder Info: 2500-7 - TIBCOrder Info: 2498-4 - FEOrder Info: 2276-4 - FEROrder Info: 228-8 - FOLSN Performed By: #### L 501.0900 #### [facility] [address] [place], [address] GFR/1.73 sq M.predicted among non-blacks MDRD (S/P/Bld) [Vol rate/Area] 49 mL/min/{1.73_m2} Low >60 [facility] Comment on above: Order Comment: Order Date: 04/28/24Order Info: 0786-1 - CMPOrder Info: 20591-3 - LIPIDOrder Info: 3084-1 - URICOrder Info: 2777-1 - PHOSOrder Info: 46281-0 - MGOrder Info: 3016-3 - TSHOrder Info: 2500-7 - TIBCOrder Info: 2498-4 - FEOrder Info: 2276-4 - FEROrder Info: 228-8 - FOLSN Result Comment: Non- GFR Calc Performed By: #### L 501.0900 #### [facility] [address] [place], [address] Globulin (S) [Mass/Vol] 3.7 g/dL Normal 2.2-4.2 [facility] Comment on above: Order Comment: Order Date: 04/28/24Order Info: 0786-1 - CMPOrder Info: [id number] - LIPIDOrder Info: 3084-1 - URICOrder Info: 2777-1 - PHOSOrder Info: 17735-1 - MGOrder Info: 3016-3 - TSHOrder Info: 2500-7 - TIBCOrder Info: 2498-4 - FEOrder Info: 2276-4 - FEROrder Info: 228-8 - FOLSN Performed By: #### L 501.0900 #### [facility] [address] [place], [address] Glucose [Mass/Vol] 130 mg/dL High 74-106 [facility] Comment on above: Order Comment: Order Date: 04/28/24Order Info: 86-1 - CMPOrder Info: 96972-5 - LIPIDOrder Info: 3084-1 - URICOrder Info: 2777-1 - PHOSOrder Info: 86161-2 - MGOrder Info: 6-3 - TSHOrder Info: 2499-7 - TIBCOrder Info: 2498-4 - FEOrder Info: 2275-4 - FEROrder Info: 2283-8 - FOLSN Result Comment: Fast ing Glucose result greater than or equal to 126 mg/dL suggests DIABETES MELLITUS per A.D.A. criteria. Performed By: #### L 501.0900 #### [facility] [address] [place], [address] Potassium [Moles/Vol] 4.1 mmol/L Normal 3.5-5.1 [facility] Comment on above: Order Comment: Order Date: 04/28/24Order Info: 0786-1 - CMPOrder Info: 14886-9 - LIPIDOrder Info: 3084-1 - URICOrder Info: 2777-1 - PHOSOrder Info: 99478-9 - MGOrder Info: 3015-3 - TSHOrder Info: 7 - TIBCOrder Info: 2498-4 - FEOrder Info: 227-4 - FEROrder Info: 8 - FOLSN Performed By: #### L 501.0900 #### [facility] [address] [place], [address] Sodium [Moles/Vol] 139 mmol/L Normal 136-145 [facility] Comment on above: Order Comment: Order Date: 04/28/24Order Info: 0786-1 - CMPOrder Info: [id number] - LIPIDOrder Info: 3084-1 - URICOrder Info: 2777-1 - PHOSOrder Info: 60844-2 - MGOrder Info: 3016-3 - TSHOrder Info: 2500-7 - TIBCOrder Info: 2498-4 - FEOrder Info: 2276-4 - FEROrder Info: 2284-8 - FOLSN Performed By: #### L 501.0900 #### [facility] [address] [place], [address] T PROT 7.4 g/dL Normal 6.4-8.2 [facility] Comment on above: Order Comment: Order Date: 04/28/24Order Info: 0786-1 - CMPOrder Info: 94966-6 - LIPIDOrder Info: 3084-1 - URICOrder Info: 2777-1 - PHOSOrder Info: 87566-0 - MGOrder Info: 3016-3 - TSHOrder Info: 2500-7 - TIBCOrder Info: 2498-4 - FEOrder Info: 2276-4 - FEROrder Info: 2284-8 - FOLSN Performed By: #### L 501.0900 #### [facility] [address] [place], [address] Urea nitrogen [Mass/Vol] 31 mg/dL High 7-18 [facility] Comment on above: Order Comment: Order Date: 04/28/24Order Info: 0786-1 - CMPOrder Info: [id number] - LIPIDOrder Info: 3084-1 - URICOrder Info: 2777-1 - PHOSOrder Info: 51971-6 - MGOrder Info: 3016-3 - TSHOrder Info: 2500-7 - TIBCOrder Info: 2498-4 - FEOrder Info: 2276-4 - FEROrder Info: 2284-8 - FOLSN Performed By: #### L 501.0900 #### [facility] [address] [place], [address] Ferritinon 04-28-2024 Ferritin [Mass/Vol] 313 ng/mL Normal 26-388 [facility] Comment on above: Order Comment: Order Date: 04/28/24Order Info: 0786-1 - CMPOrder Info: 74021-3 - LIPIDOrder Info: 3084-1 - URICOrder Info: 2777-1 - PHOSOrder Info: 74755-5 - MGOrder Info: 3016-3 - TSHOrder Info: 2500-7 - TIBCOrder Info: 2498-4 - FEOrder Info: 2276-4 - FEROrder Info: 2284-8 - FOLSN Performed By: #### L 501.9520, L500.4050, L100.0100 #### [facility] [address] [place], [place], [address] Folates, (Folic Acid)on FOLATES 8.00 ng/mL Normal 3.1-55.4 [facility] Comment on above: Order Comment: Order Date: 04/28/24Order Info: 0786-1 - CMPOrder Info: [id number] - LIPIDOrder Info: 3084-1 - URICOrder Info: 2777-1 - PHOSOrder Info: 43245-0 - MGOrder Info: 3016-3 - TSHOrder Info: 2500-7 - TIBCOrder Info: 2498-4 - FEOrder Info: 2276-4 - FEROrder Info: 2284-8 - FOLSN Performed By: #### L 501.0900 #### [facility] [address] [place], [place], [address] Ironon 04-28-2024 Iron [Mass/Vol] 98 ug/dL Normal 65-175 [facility] Comment on above: Order Comment: Order Date: 04/28/24Order Info: 0786-1 - CMPOrder Info: 42467-6 - LIPIDOrder Info: 3084-1 - URICOrder Info: 2777-1 - PHOSOrder Info: 21960-0 - MGOrder Info: 3016-3 - TSHOrder Info: 2500-7 - TIBCOrder Info: 2498-4 - FEOrder Info: 2276-4 - FEROrder Info: 2284-8 - FOLSN Performed By: #### L 501.0900 #### [facility] [address] [place], [address] Iron Binding Capacity,Totalo n 04-28-2024 TIBC 347 ug/dL Normal 250-450 [facility] Comment on above: Order Comment: Order Date: 04/28/24Order Info: 0786-1 - CMPOrder Info: 93282-0 - LIPIDOrder Info: 3084-1 - URICOrder Info: 2777-1 - PHOSOrder Info: 84397-0 - MGOrder Info: 3016-3 - TSHOrder Info: 2500-7 - TIBCOrder Info: 2498-4 - FEOrder Info: 2276-4 - FEROrder Info: 2284-8 - FOLSN Performed By: #### L 501.0900 #### [facility] [address] [place], [address] Lipid Profileon 04-28-2024 Cholesterol [Mass/Vol] 186 mg/dL Normal 200 [facility] Comment on above: Order Comment: Order Date: 04/28/24Order Info: 0786-1 - CMPOrder Info: [id number] - LIPIDOrder Info: 3084-1 - URICOrder Info: 2777-1 - PHOSOrder Info: 86964-4 - MGOrder Info: 3016-3 - TSHOrder Info: 2500-7 - TIBCOrder Info: 2498-4 - FEOrder Info: 2276-4 - FEROrder Info: 2284-8 - FOLSN Result Comment: <200 mg/dL Desirable 200-240 mg/dL Borderline >240 mg/dL High Risk Performed By: #### L 501.0900 #### [facility] [address] [place], [address] Cholesterol in HDL [Mass/Vol] 83 mg/dL Normal [facility] Comment on above: Order Comment: Order Date: 04/28/24Order Info: 0786-1 - CMPOrder Info: 99399-9 - LIPIDOrder Info: 3084-1 - URICOrder Info: 2777-1 - PHOSOrder Info: 46833-9 - MGOrder Info: 3016-3 - TSHOrder Info: 2500-7 - TIBCOrder Info: 2498-4 - FEOrder Info: 2276-4 - FEROrder Info: 2284-8 - FOLSN Result Comment: The drugs N-Acetylcysteine and Metamizole may falsely depress this assay. Reference Range HDL <40 mg/dL Low HDL Cholesterol HDL >or= 60 mg/dL High HDL Cholesterol Performed By: #### L 501.0900 #### [facility] [address] [place], [address] Cholesterol in LDL [Mass/Vol] 75 mg/dL Normal 0-130 [facility] Comment on above: Order Comment: Order Date: 04/28/24Order Info: 0786-1 - CMPOrder Info: [id number] - LIPIDOrder Info: 3084-1 - URICOrder Info: 2777-1 - PHOSOrder Info: 61092-9 - MGOrder Info: 3016-3 - TSHOrder Info: 2500-7 - TIBCOrder Info: 2498-4 - FEOrder Info: 2276-4 - FEROrder Info: 2284-8 - FOLSN Performed By: #### L 501.0900 #### [facility] [address] [place], [address] Cholesterol in VLDL [Mass/Vol] 28 mg/dL Normal 5-40 [facility] Comment on above: Order Comment: Order Date: 04/28/24Order Info: 0786-1 - CMPOrder Info: [id number] - LIPIDOrder Info: 3084-1 - URICOrder Info: 2777-1 - PHOSOrder Info: 17716-4 - MGOrder Info: 3016-3 - TSHOrder Info: 2500-7 - TIBCOrder Info: 2498-4 - FEOrder Info: 2276-4 - FEROrder Info: 2284-8 - FOLSN Performed By: #### L 501.0900 #### [facility] [address] [place], [address] Triglyceride [Mass/Vol] 141 mg/dL Normal [facility] Comment on above: Order Comment: Order Date: 04/28/24Order Info: 0786-1 - CMPOrder Info: [id number] - LIPIDOrder Info: 3084-1 - URICOrder Info: 2777-1 - PHOSOrder Info: 74910-7 - MGOrder Info: 3016-3 - TSHOrder Info: 2500-7 - TIBCOrder Info: 2498-4 - FEOrder Info: 2276-4 - FEROrder Info: 8 - FOLSN Result Comment: The drugs N-Acetylcysteine and Metamizole may falsely depress this assay. Serum Triglycerides Reference Interval Normal <150 mg/dL Borderline high 150 - 199 mg/dL High 200 - 499 mg/dL Very High > or = 500 mg/dL Performed By: #### L 501.0900 #### [facility] [address] [place], [address] Magnesiumon 04-28-2024 Magnesium [Mass/Vol] 2.2 mg/dL Normal 1.6-2.6 [facility] Comment on above: Order Comment: Order Date: 04/28/24Order Info: 0786-1 - CMPOrder Info: 46909-7 - LIPIDOrder Info: 3084-1 - URICOrder Info: 2777-1 - PHOSOrder Info: 26856-7 - MGOrder Info: 3 - TSHOrder Info: 25007 - TIBCOrder Info: 24984 - FEOrder Info: 4 - FEROrder Info: 8 - FOLSN Performed By: #### L 501.0900 #### [facility] [address] [place], [address] PTHINon 04-28-2024 PTH 76.0 pg/mL Normal 18.4-80.1 [facility] Comment on above: Order Comment: Order Date: 04/28/24Order Info: 0565-1 - PTHIN Performed By: #### L 501.9910 #### [facility] [address] [place], [address] Phosphoruson 04-28-2024 Phosphate [Mass/Vol] 3.5 mg/dL Normal 2.5-4.9 [facility] Comment on above: Order Comment: Order Date: 04/28/24Order Info: 0786-1 - CMPOrder Info: [id number] - LIPIDOrder Info: 4-1 - URICOrder Info: 2777-1 - PHOSOrder Info: 32102-5 - MGOrder Info: 3016-3 - TSHOrder Info: 7 - TIBCOrder Info: 2494 - FEOrder Info: 4 - FEROrder Info: 2283-8 - FOLSN Performed By: #### L 501.0900 #### [facility] [address] [place], [address] Protein+Creatinine Ratio,Uri neon 04-28-2024 PROT:CRE RATIO TNP Normal 0-200 [facility] Comment on above: Performed By: #### L 501.0900 #### [facility] [address] [place], [address] PROTEIN,UR.RAN. < 6.0 Normal <11.9 [facility] Comment on above: Performed By: #### L 501.0900 #### [facility] [address] [place], [address] UR CREAT 34.00 mg/dL Normal NO RANGE EST. [facility] Comment on above: Performed By: #### L 501.0900 #### [facility] [address] [place], [address] Thyroid Stim Hormone (TSH)on 04-28-2024 TSH 0.922 uIU/mL Normal 0.358-3.74 0 [facility] Comment on above: Order Comment: Order Date: 04/28/24Order Info: 0786-1 - CMPOrder Info: [id number] - LIPIDOrder Info: 3084-1 - URICOrder Info: 7-1 - PHOSOrder Info: 44593-4 - MGOrder Info: 6-3 - TSHOrder Info: 2499-11 - TIBCOrder Info: 2494 - FEOrder Info: 4 - FEROrder Info: 8 - FOLSN Performed By: #### L 501.0900 #### [facility] [address] [place], [address] Uric Acidon 04-28-2024 URIC 8.9 mg/dL High 3.5-7.2 [facility] Comment on above: Order Comment: Order Date: 04/28/24Order Info: 0786-1 - CMPOrder Info: [id number] - LIPIDOrder Info: 3084-1 - URICOrder Info: 2777-1 - PHOSOrder Info: 79059-1 - MGOrder Info: 3016-3 - TSHOrder Info: 2500-7 - TIBCOrder Info: 2498-4 - FEOrder Info: 2275-08 - FEROrder Info: 8 - FOLSN Result Comment: The drugs N-Acetylcysteine and Metamizole may falsely depress this assay. Performed By: #### L 100.0500, L500.4050, L501.9520 #### [facility] [address] [place], [address] Vitamin B12on 04-28-2024 Cobalamin (Vitamin B12) [Mass/Vol] 275 pg/mL Normal 211-911 [facility] Comment on above: Order Comment: Order Date: 04/28/24Order Info: 213-9 - [id number] Info: 48028-5 - VITD25 Performed By: #### L 501.0900 #### [facility] [address] [place], [address] Vitamin D,25 Hydroxyon 04-28 Vitamin D 25-OH 40.6 ng/mL Normal [facility] Comment on above: Order Comment: Order Date: 04/28/24Order Info: 9 - [id number] Info: 49729-6 - VITD25 Result Comment: Purnima min D 25(OH) Status Range Deficiency <20 ng/mL (50nmol/L) Insufficiency 20 - 30 ng/mL (50 - 75 nmol/L) Sufficiency 30 - 100 ng/mL (75 - 250 nmol/L) Toxicity >100 ng/mL (>250 nmol/L) Performed By: #### L 501.0900 #### [facility] [address] [place], [address] Emergency Department Summary on 04-23-2024 Emergency Department Summary [facility] Medical Records Department [address] [place] [address] Emergency Department Summary 04/23/24 MR#: [id number] Acct: [id number] Name: SHANNON OLSON Rep #: [id number] : 1955 68 From: Andre Rueda MD PCP: Dr. Finn Ferrell MD Status:REG ER Location: ED HPI History of Present Illness Chief Complaint: Lower Extremity Injury Detail of Chief Complaint: Atraumatic pain right foot in the proximity of the MTP joint great toe Informant: patient and family Onset/Context/Timing Onset: - (Intermittent over the past 6 weeks) Context: Sudden Onset Timing: Continuous Quality: Pain and swelling Location: In the proximity of the MTP joint right great toe Current Severity: Moderate Maximum Severity: Severe Worsened by: Pressure, light touch Relieved by: Nothing Associated Symptoms Associated Symptoms: No constitutional symptoms. No symptoms of claudication. Narrative Narrative: Patient is a 68-year-old male. He has history of hypertension and rheumatoid arthritis. He also has history of obstructive sleep apnea. He was seen on March 12 and thought to have cellulitis.Patient was seen on March 27 and treated for gout. He returned on April 08 and was treated for gout. He was treated with colchicine. He saw his primary care physician was placed on prednisone. He completed a course of prednisone on Wednesday. He took 1 pill twice a day. Does not know the strength of the prednisone. He denies symptoms of claudication. He denies discoloration of his toes. He does have history of hypertension. He denies history of kidney disease. He denies history of diabetes. Review of records indicates he has history of hypertension, hyperlipidemia, GERD, coronary artery disease status post non-STEMI. Prior similar symptoms: Yes Recent Illness/Hospitalization: Yes [facility] Medical History Left rotator cuff tear History of echocardiogram Anxiety Excessive bleeding PONV (postoperative nausea and vomiting) Sleep apnea History of stress test Wears glasses Depression High cholesterol Gastric reflux Difficulty swallowing Non-smoker COPD (chronic obstructive pulmonary disease) Shortness of breath on exertion Leg cramps History of edema Hypertension Cardiology follow-up encounter History of heart attack History of atrial fibrillation Chest pain Sensorineural hearing loss, bilateral Dysphagia Epidermal inclusion cyst NSVT (nonsustained ventricular tachycardia) Screening for malignant neoplasm of intestine Cholelithiasis with chronic cholecystitis COPD (chronic obstructive pulmonary disease) CAD (coronary artery disease) Atrial fibrillation severe degenerative arthritis of right hip Rheumatoid arthritis Obstructive sleep apnea syndrome history of ischemic stroke HTN (hypertension) Hyperlipidemia Esophageal reflux Coronary atherosclerosis of [place] coronary vessel Home Medications ???Medication ???Instructions ???Recorded ???Last Taken ???Type minoxidil 10 mg tablet 5 mg PO BID blood pressure 10/05/19 05/20/23 History nitroglycerin 0.4 mg sublingual 0.4 mg sublingual Q5-15M PRN cp 10/05/19 Unknown History tablet clopidogrel 75 mg tablet (Plavix) 75 mg PO DAILY 09/09/21 05/19/23 History apixaban 5 mg tablet (Eliquis) 5 mg PO BID 10/30/21 05/18/23 History isosorbide mononitrate 30 mg 60 mg PO DAILY 01/07/22 05/20/23 History tablet,extended release 24 hr metoprolol succinate 50 mg 25 mg PO DAILY 04/07/23 05/20/23 History tablet,extended release 24 hr torsemide 20 mg tablet 20 mg PO DAILY 04/07/23 05/19/23 History metoprolol tartrate 50 mg tablet 25 mg PO QHS 05/19/23 05/20/23 History amiodarone 200 mg tablet 200 mg PO DAILY 05/20/23 05/20/23 History metoprolol tartrate 25 mg tablet 25 mg PO DAILY 03/26/24 Unknown History rosuvastatin 40 mg tablet 40 mg PO DAILY 03/26/24 Unknown History oxycodone-acetaminophen 5 mg-325 1 tab PO Q6H PRN pain 3 days #12 03/27/24 Unknown Rx mg tablet (Percocet) tabs hydrocodone-acetaminophen 5-325mg 1 tab PO Q6H PRN PRN Pain 3 days 04/23/24 Unknown Rx 5mg-325mg #10 TABLETS prednisone 20 mg tablet 40 mg (2 x 20 mg) PO DAILY #10 04/23/24 Unknown Rx TABLETS Allergy/AdvReac Type Severity Reaction Status Date / Time Penicillins Allergy Hives Verified 04/23/24 19:14 Family History Sister Cancer ovarian Diabetes Brother Diabetes Mother Heart disease Hypertension Father Prostate cancer Surgical History S/P PTCA (percutaneous transluminal coronary angioplasty) Hx of cholecystectomy History of colonoscopy ( 2014) History of esophagogastroduodenoscopy (EGD) ( 2014) History of knee joint replacement History o (more content not included)... Normal [facility] PSA,Total - Annual Screenon 04-12-2024 PSA,TOT SCREEN 1.67 ng/mL Normal 0.00-4.00 [facility] Comment on above: Result Comment: This test was performed using the TPSA assay method for the Jott chemistry system. Values obtained with different assay methods cannot be used interchangably. When changing PSA assays in the course of monitoring a patient, additional sequential testing should be carried out to confirm baseline values. Performed By: #### L 501.9910 #### [facility] [address] [address] [place], [place], [address] Extremity Lower WITH Contras ton 04-11-2024 Extremity Lower WITH Contrast [facility] [address] [place] [address] Extremity Lower WITH Contrast MR#: [id number] Acct: [id number] Name: SHANNON OLSON Rep #: [id number] : 1955 M 68 From: Beka tariq MD PCP: Dr. Finn Ferrell MD Status: REG CLI Study: Extremity Lower WITH Contrast Date of Exam: Exam# [id number] Ordering Dr: Jenniffer Luna CONDUIT INSTALLER CONDUIT INSTALLER-C [id number] STUDY: CT RIGHT FOOT REASON FOR EXAM: Male, 68 years old. Right foot pain. History of gout. RADIATION DOSAGE (If Supplied By Facility): CTDIvol = ( 19.84 ) mGy, DLP = ( 561.9 ) mGycm TECHNIQUE: Thin section transaxial imaging of the foot was obtained, with sagittal and coronal reconstructed images. Individualized dose optimization techniques were used for this CT. COMPARISON: Comparison is made with prior radiograph dated March 26, 2024. FINDINGS: Calcaneal spurs. Normal visualized tibiotalar, subtalar, talonavicular, calcaneocuboid. There is evidence of erosive changes at the second cuboid and second metatarsal joint with area of bony destruction at the level of the second cuboid bone and base of the second metatarsal. If the patient has a history of gout this may represent gouty arthritis. Otherwise, localized infection should be ruled out. Normal metatarsi. Normal metatarsophalangeal joint of the great toe. Normal tibial and fibular sesamoid bones. Normal interphalangeal joint of the great toe. Normal phalanges of the great toe. Normal second through fifth metatarsophalangeal joints. Normal interphalangeal joints and phalanges of the lesser toes. Diffuse soft tissue swelling. CT/Extremity Lower WITH Contrast IMPRESSION: Erosive changes at the level of the second cuboid and second metatarsophalangeal joint with bony destruction as described. Gout arthritis or infection should be ruled out. Diffuse soft tissue swelling. Electronically Signed: Beka Zuleta MD at 12:48 EST Reading Location ID and State: [facility] / [place] , Service support , CC: KYLIE Luna; Dr. Finn Ferrell MD Machine Shop Instructor: Signed Normal [facility] Emergency Department Summary on 04-08-2024 Emergency Department Summary [facility] Medical Records Department [address] [place] [address] Emergency Department Summary 04/08/24 MR#: [id number] Acct: [id number] Name: SHANNON OLSON Rep #: [id number] : 1955 68 From: Ronald Churchill MD PCP: Dr. Finn Ferrell MD Status:PRE ER Location: ED HPI History of Present Illness Chief Complaint: Lower Extremity Injury Narrative Narrative: 68-year-old male past medical history of DVT, on blood thinners, history of gout, presents with right foot pain that has had for over a week. Of note, he states he was seen in the emergency depar tme approximately 7 days ago where he was diagnosed with gout. He was given colchicine in the emergency department and a prescription to take twice a day for the next 7 days. He started feeling better on Wednesday, and followed up with a primary care provider, 4 days ago. However, 3 days ago, he started having pain in his right foot again. He complains of pain across the top of his right foot with a little erythema in the first MTP joint. This is similar to his previous gouty exacerbations. He ran out of his colchicine that he had been given from the emergency department, and now states that his pain is worsening. He was told by the primary care provider/NALDO that he may need to be on maintenance medications. No fevers or chills, no other symptoms. [facility] Medical History Left rotator cuff tear History of echocardiogram Anxiety Excessive bleeding PONV (postoperative nausea and vomiting) Sleep apnea History of stress test Wears glasses Depression High cholesterol Gastric reflux Difficulty swallowing Non-smoker COPD (chronic obstructive pulmonary disease) Shortness of breath on exertion Leg cramps History of edema Hypertension Cardiology follow-up encounter History of heart attack History of atrial fibrillation Chest pain Sensorineural hearing loss, bilateral Dysphagia Epidermal inclusion cyst NSVT (nonsustained ventricular tachycardia) Screening for malignant neoplasm of intestine Cholelithiasis with chronic cholecystitis COPD (chronic obstructive pulmonary disease) CAD (coronary artery disease) Atrial fibrillation severe degenerative arthritis of right hip Rheumatoid arthritis Obstructive sleep apnea syndrome history of ischemic stroke HTN (hypertension) Hyperlipidemia Esophageal reflux Coronary atherosclerosis of [place] coronary vessel Home Medications ???Medication ???Instructions ???Recorded ???Last Taken ???Type minoxidil 10 mg tablet 5 mg PO BID blood pressure 10/05/19 05/20/23 History nitroglycerin 0.4 mg sublingual 0.4 mg sublingual Q5-15M PRN cp 10/05/19 Unknown History tablet clopidogrel 75 mg tablet (Plavix) 75 mg PO DAILY 09/09/21 05/19/23 History apixaban 5 mg tablet (Eliquis) 5 mg PO BID 10/30/21 05/18/23 History isosorbide mononitrate 30 mg 60 mg PO DAILY 01/07/22 05/20/23 History tablet,extended release 24 hr metoprolol succinate 50 mg 25 mg PO DAILY 04/07/23 05/20/23 History tablet,extended release 24 hr torsemide 20 mg tablet 20 mg PO DAILY 04/07/23 05/19/23 History metoprolol tartrate 50 mg tablet 25 mg PO QHS 05/19/23 05/20/23 History amiodarone 200 mg tablet 200 mg PO DAILY 05/20/23 05/20/23 History metoprolol tartrate 25 mg tablet 25 mg PO DAILY 03/26/24 Unknown History rosuvastatin 40 mg tablet 40 mg PO DAILY 03/26/24 Unknown History colchicine 0.6 mg tablet 0.6 mg PO BID 7 days #14 tabs 03/27/24 Unknown Rx oxycodone-acetaminophen 5 mg-325 1 tab PO Q6H PRN pain 3 days #12 03/27/24 Unknown Rx mg tablet (Percocet) tabs colchicine 0.6 mg tablet 0.6 mg PO BID Gout #14 tabs 04/08/24 Unknown Rx Allergy/AdvReac Type Severity Reaction Status Date / Time Penicillins Allergy Hives Verified 04/08/24 09:29 Family History Sister Cancer ovarian Diabetes Brother Diabetes Mother Heart disease Hypertension Father Prostate cancer Surgical History S/P PTCA (percutaneous transluminal coronary angioplasty) Hx of cholecystectomy History of colonoscopy ( 2014) History of esophagogastroduodenoscopy (EGD) ( 2014) History of knee joint replacement History of total right hip arthroplasty History of inguinal hernia repair History of left shoulder replacement History of total left hip arthroplasty History of coronary angioplasty History of heart artery stent History of cardiac catheterization Social History household members: none Smoking Status: Never smoker alcohol intake: never substance use type: does not use ROS ROS ED ROS Narrative Constitutional: No fever, no chills. HEENT: No sore throat. No neck p (more content not included)... Normal [facility] Basic Metabolic Profile (BMP )on 03-26-2024 BUN/CRE 21.0 RATIO High 10-20 [facility] Comment on above: Performed By: #### L 100.0500, L500.4050, L501.9520 #### [facility] [address] [place], [address] CA,Total 9.0 mg/dL Normal 8.5-10.1 [facility] Comment on above: Performed By: #### L 100.0500, L500.4050, L501.9520 #### [facility] [address] [place], [address] Chloride [Moles/Vol] 108 mmol/L High 98-107 [facility] Comment on above: Performed By: #### L 100.0500, L500.4050, L501.9520 #### [facility] [address] [place], [address] CO2 [Moles/Vol] 25.0 mmol/L Normal 21.0-32.0 [facility] Comment on above: Performed By: #### L 100.0500, L500.4050, L501.9520 #### [facility] [address] [place], [address] Creatinine [Mass/Vol] 1.57 mg/dL High 0.70-1.30 [facility] Comment on above: Result Comment: The validity of the calculated GFR GFRAA in patients over 70 years has not been determined. Clinical correlation is essential. Performed By: #### L 100.0500, L500.4050, L501.9520 #### [facility] [address] [place], [address] ECRCL 69.76 ml/min Normal [facility] Comment on above: Performed By: #### L 100.0500, L500.4050, L501.9520 #### [facility] [address] [place], [address] EST GFR - AA 57 mL/min Low >60 [facility] Comment on above: Result Comment: Afri can Guine[place] GFR Calc Performed By: #### L 100.0500, L500.4050, L501.9520 #### [facility] [address] [place], [address] GAP 6 Normal 5-15 [facility] Comment on above: Performed By: #### L 100.0500, L500.4050, L501.9520 #### [facility] [address] [place], [address] GFR/1.73 sq M.predicted among non-blacks MDRD (S/P/Bld) [Vol rate/Area] 47 mL/min/{1.73_m2} Low >60 [facility] Comment on above: Result Comment: Non- GFR Calc Performed By: #### L 100.0500, L500.4050, L501.9520 #### [facility] [address] [place], [address] Glucose [Mass/Vol] 139 mg/dL High 74-106 [facility] Comment on above: Result Comment: Fast ing Glucose result greater than or equal to 126 mg/dL suggests DIABETES MELLITUS per A.D.A. criteria. Performed By: #### L 100.0500, L500.4050, L501.9520 #### [facility] [address] [place], [address] Potassium [Moles/Vol] 4.0 mmol/L Normal 3.5-5.1 [facility] Comment on above: Performed By: #### L 100.0500, L500.4050, L501.9520 #### [facility] [address] [place], [address] Sodium [Moles/Vol] 140 mmol/L Normal 136-145 [facility] Comment on above: Performed By: #### L 100.0500, L500.4050, L501.9520 #### [facility] [address] [place], [address] Urea nitrogen [Mass/Vol] 33 mg/dL High 7-18 [facility] Comment on above: Performed By: #### L 100.0500, L500.4050, L501.9520 #### [facility] [address] [place], [address] CBC W/Diff, Automatedon 11-0 3-2023 Absolute Lymph 2.12 X10 3/uL Normal 0.83-4.51 [facility] Comment on above: Performed By: #### L 100.0500, L500.4050, L501.9520 #### [facility] [address] [place], [address] Absolute Neut 7.0 X10 3/uL Normal 2.0-7.7 [facility] Comment on above: Performed By: #### L 100.0500, L500.4050, L501.9520 #### [facility] [address] [place], [address] Basophils/100 WBC (Bld) 0.5 % Normal 0-1 [facility] Comment on above: Performed By: #### L 100.0500, L500.4050, L501.9520 #### [facility] [address] [place], [address] Eosinophils/100 WBC (Bld) 1.3 % Normal 0-5 [facility] Comment on above: Performed By: #### L 100.0500, L500.4050, L501.9520 #### [facility] [address] [place], [address] Erythrocyte distribution width (RBC) [Ratio] 14.0 % Normal 11.6-14.6 [facility] Comment on above: Performed By: #### L 100.0500, L500.4050, L501.9520 #### [facility] [address] [place], [address] Hematocrit (Bld) [Volume fraction] 37.0 % Low 40-54 [facility] Comment on above: Performed By: #### L 100.0500, L500.4050, L501.9520 #### [facility] [address] [place], [address] Hemoglobin (Bld) [Mass/Vol] 12.4 g/dL Low 13.0-16.5 [facility] Comment on above: Performed By: #### L 100.0500, L500.4050, L501.9520 #### [facility] [address] [place], [address] IG% 0.400 Normal 0.0-0.9 [facility] Comment on above: Result Comment: IG% - Immature Granulocytes (promyelocytes, myelocytes and metamyelocytes) > 1% indicates that a LEFT SHIFT is Present. Performed By: #### L 100.0500, L500.4050, L501.9520 #### [facility] [address] [place], [address] Lymphocytes/100 WBC (Bld) 21.2 % Normal 19-41 [facility] Comment on above: Performed By: #### L 100.0500, L500.4050, L501.9520 #### [facility] [address] [place], [address] MCH (RBC) [Entitic mass] 30.2 pg Normal 27.0-32.0 [facility] Comment on above: Performed By: #### L 100.0500, L500.4050, L501.9520 #### [facility] [address] [place], [address] MCHC (RBC) [Mass/Vol] 33.5 g/dL Normal 32-36 [facility] Comment on above: Performed By: #### L 100.0500, L500.4050, L501.9520 #### [facility] [address] [place], [address] MCV (RBC) [Entitic vol] 90.0 fL Normal 80-94 [facility] Comment on above: Performed By: #### L 100.0500, L500.4050, L501.9520 #### [facility] [address] [place], [address] Monocytes/100 WBC (Bld) 6.8 % Normal 0-10 [facility] Comment on above: Performed By: #### L 100.0500, L500.4050, L501.9520 #### [facility] [address] [place], [address] Neutrophils/100 WBC (Bld) 69.8 % Normal 47-70 [facility] Comment on above: Performed By: #### L 100.0500, L500.4050, L501.9520 #### [facility] [address] [place], [address] Nucleated RBC (Bld) [#/Vol] 0 10*3/uL Normal 0-5 [facility] Comment on above: Performed By: #### L 100.0500, L500.4050, L501.9520 #### [facility] [address] [place], [address] Platelet mean volume (Bld) [Entitic vol] 9.2 fL Normal 6.2-12.0 [facility] Comment on above: Performed By: #### L 100.0500, L500.4050, L501.9520 #### [facility] [address] [place], [address] Platelets (Bld) [#/Vol] 238 10*3/uL Normal 150-450 [facility] Comment on above: Performed By: #### L 100.0500, L500.4050, L501.9520 #### [facility] [address] [place], [address] RBC (Bld) [#/Vol] 4.11 10*6/uL Low 4.6-6.2 [facility] Comment on above: Performed By: #### L 100.0500, L500.4050, L501.9520 #### [facility] [address] [place], [address] RDW SD 45.7 fl High 35.1-43.9 [facility] Comment on above: Performed By: #### L 100.0500, L500.4050, L501.9520 #### [facility] [address] [place], [address] WBC (Bld) [#/Vol] 10.0 10*3/uL Normal 4.4-11.0 [facility] Comment on above: Performed By: #### L 100.0500, L500.4050, L501.9520 #### [facility] [address] [place], [address] Emergency Department Summary on 03-26-2024 Emergency Department Summary [facility] Medical Records Department [address] [place] [address] Emergency Department Summary 03/26/24 MR#: [id number] Acct: [id number] Name: SHANNON OLSON Rep #: [id number] : 1955 68 From: George Pond DO PCP: Dr. Finn Ferrell MD Status:DEP ER Location: ED HPI History of Present Illness Chief Complaint: Cellulitis Informant: patient Narrative Narrative: Patient is a 68-year-old male with past medical history of hypertension hyperlipidemia COPD and paroxysmal atrial fibrillation on Eliquis. He was seen on March 12 secondary to right foot pain and diagnosed with cellulitis and put on 10 days of antibiotics. He states he took the medication and his symptoms almost completely resolved. He reports however in the last 1 to 2 days she has had increased pain and swelling to the right foot and has concern for repeat infection. He also reports that roughly 5 days ago he was loading something into his truck when he slipped and fell and landed on that box causing pain to his right rib. He states that there is still pain with palpation and motion and he has concern for rib fracture as well and therefore comes in for evaluation [facility] Medical History Left rotator cuff tear History of echocardiogram Anxiety Excessive bleeding PONV (postoperative nausea and vomiting) Sleep apnea History of stress test Wears glasses Depression High cholesterol Gastric reflux Difficulty swallowing Non-smoker COPD (chronic obstructive pulmonary disease) Shortness of breath on exertion Leg cramps History of edema Hypertension Cardiology follow-up encounter History of heart attack History of atrial fibrillation Chest pain Sensorineural hearing loss, bilateral Dysphagia Epidermal inclusion cyst NSVT (nonsustained ventricular tachycardia) Screening for malignant neoplasm of intestine Cholelithiasis with chronic cholecystitis COPD (chronic obstructive pulmonary disease) CAD (coronary artery disease) Atrial fibrillation severe degenerative arthritis of right hip Rheumatoid arthritis Obstructive sleep apnea syndrome history of ischemic stroke HTN (hypertension) Hyperlipidemia Esophageal reflux Coronary atherosclerosis of [place] coronary vessel Home Medications ???Medication ???Instructions ???Recorded ???Last Taken ???Type minoxidil 10 mg tablet 5 mg PO BID blood pressure 10/05/19 05/20/23 History nitroglycerin 0.4 mg sublingual 0.4 mg sublingual Q5-15M PRN cp 10/05/19 Unknown History tablet clopidogrel 75 mg tablet (Plavix) 75 mg PO DAILY 09/09/21 05/19/23 History apixaban 5 mg tablet (Eliquis) 5 mg PO BID 10/30/21 05/18/23 History isosorbide mononitrate 30 mg 60 mg PO DAILY 01/07/22 05/20/23 History tablet,extended release 24 hr metoprolol succinate 50 mg 25 mg PO DAILY 04/07/23 05/20/23 History tablet,extended release 24 hr torsemide 20 mg tablet 20 mg PO DAILY 04/07/23 05/19/23 History metoprolol tartrate 50 mg tablet 25 mg PO QHS 05/19/23 05/20/23 History amiodarone 200 mg tablet 200 mg PO DAILY 05/20/23 05/20/23 History metoprolol tartrate 25 mg tablet 25 mg PO DAILY 03/26/24 Unknown History rosuvastatin 40 mg tablet 40 mg PO DAILY 03/26/24 Unknown History colchicine 0.6 mg tablet 0.6 mg PO BID 7 days #14 tabs 03/27/24 Unknown Rx oxycodone-acetaminophen 5 mg-325 1 tab PO Q6H PRN pain 3 days #12 03/27/24 Unknown Rx mg tablet (Percocet) tabs Allergy/AdvReac Type Severity Reaction Status Date / Time Penicillins Allergy Hives Verified 03/26/24 22:53 Family History Sister Cancer ovarian Diabetes Brother Diabetes Mother Heart disease Hypertension Father Prostate cancer Surgical History S/P PTCA (percutaneous transluminal coronary angioplasty) Hx of cholecystectomy History of colonoscopy ( 2014) History of esophagogastroduodenoscopy (EGD) ( 2014) History of knee joint replacement History of total right hip arthroplasty History of inguinal hernia repair History of left shoulder replacement History of total left hip arthroplasty History of coronary angioplasty History of heart artery stent History of cardiac catheterization Social History household members: none Smoking Status: Never smoker alcohol intake: never substance use type: does not use ROS ROS ED Constitutional Constitutional ED: Denies chills or fever(s) Eyes Eyes: Denies blurry vision or change in vision ENT ENT ED: Denies sore throat Cardiovascular Cardiovascular: Denies chest pain Respiratory/Chest Respiratory/Chest: Denies cough or dyspnea Gastrointestinal Gastrointestinal: Denies abdominal pain, (more content not included)... Normal [facility] Foot min 3 Viewson 11-03-202 4 Foot min 3 Views [facility] Imaging Services [address] [place] [address] Foot min 3 Views MR#: [id number] Acct: [id number] Name: SHANNON OLSON Rep #: [id number] : 1955 M 68 From: Diaz rice MD PCP: Dr. Finn Ferrell MD Status: DEP ER Study: Foot min 3 Views Date of Exam: 03/26/24 Exam# [id number] Ordering Dr: George Pond DO [id number] EXAM: XR RIGHT FOOT COMPLETE, 3 OR MORE VIEWS CLINICAL INDICATION: pain TECHNIQUE: Frontal, lateral and oblique views of the right foot. COMPARISON: No relevant prior studies available. FINDINGS: BONES/JOINTS: Plantar and posterior calcaneal spurs are present. Degenerative spurring noted about the cuneiform-metatarsal articulations, as visualized on the lateral view. No acute fracture or dislocation. On the lateral view, a C- shaped osseous density overlies the superior calcaneus, suggesting tarsal coalition. On the AP and oblique view, there is narrowing of the middle cuneiform-second metatarsal articulation with loss of definition of the articular surfaces, possibly due to an erosive arthritis or infectious process. If the patient has pain related to this area, CT may be of benefit for further evaluation. SOFT TISSUES: Soft tissue swelling noted along the dorsal aspect of the foot. No radiopaque foreign body. VASCULATURE: Atherosclerotic vascular calcification is present. RAD/Foot min 3 Views IMPRESSION: Soft tissue swelling. Narrowing of the middle cuneiform-second metatarsal articulation with loss of definition of the articular surfaces, possibly due to erosive arthritis versus infectious process. CT may be of benefit for further evaluation of this joint. No acute fracture or dislocation identified. Electronically Signed: Diaz Gross MD at 1:05 EST , CC: Dr. Finn Ferrell MD; George Pond DO Machine Shop Instructor: Signed Normal [facility] Ribs Uni Min 3V w/PA Cheston 03-26-2024 Ribs Uni Min 3V w/PA Chest [facility] Imaging Services [address] [place] [address] Ribs Uni Min 3V w/PA Chest MR#: [id number] Acct: [id number] Name: SHANNON OLSON Rep #: [id number] : 1955 M 68 From: Diaz rice MD PCP: Dr. Finn Ferrell MD Status: DEP ER Study: Ribs Uni Min 3V w/PA Chest Date of Exam: 03/26 Exam# [id number] Ordering Dr: George Pond DO [id number] EXAM: XR RIGHT RIBS AND AP CHEST, 3 OR MORE VIEWS CLINICAL INDICATION: pain TECHNIQUE: Frontal and oblique views of the right ribs and frontal view of the chest. COMPARISON: Portable chest radiograph of 12/05/2022. FINDINGS: LUNGS AND PLEURAL SPACES: Unremarkable. No consolidation or edema. No pneumothorax. No effusion. HEART: Coronary artery calcification and/or stent material. Heart size remains within normal limits with normal pulmonary vasculature. MEDIASTINUM: Stable mild elongation of the thoracic aorta. BONES/JOINTS: Right shoulder prosthesis. No evidence of displaced rib fractures. RAD/Ribs Uni Min 3V w/PA Chest IMPRESSION: No acute right rib fracture identified. Electronically Signed: Diaz Gross MD at 1:08 EST , CC: Dr. Finn Ferrell MD; George Pond DO Machine Shop Instructor: Signed Normal [facility] Uric Acidon 03-26-2024 URIC 9.7 mg/dL High 3.5-7.2 [facility] Comment on above: Result Comment: The drugs N-Acetylcysteine and Metamizole may falsely depress this assay. Performed By: #### L 100.0500, L500.4050, L501.9520 #### [facility] Laboratory [address] [place], [address] 36on 03-23-2024 36 Chart reviewed, this is a duplicate request, RX was sent on 03/14/24. Spoke w/ pt. Normal [facility] 36 Requesting refill clopidogrel (Plavix) 75 MG tablet Main pharm [place] verified Normal [facility] Venous Duplex US, Unilateral on 03-13-2024 Venous Duplex US, Unilateral [facility] Cardiovascular Services [address] [place] [address] Venous Duplex US, Unilateral 03/13/24 1244 MR#: [id number] Acct: [id number] Name: SHANNON OLSON Rep #: [id number] : 1955 68 From: Omar Cortés MD Attending Dr: Dr. Ronald Churchill MD Status: REG CLI Ordering Dr: Ronald Churchill MD Date: 03/13/24 Location: CVS Sex: M C Admitted: Reason For Study: RLE Swelling RIGHT LEFT GSV is normal. FV is compressible, spontaneous, phasic, CFV is compressible, spontaneous, phasic, competent and demonstrates normal competent and demonstrates normal augmentation. augmentation. FV is compressible, spontaneous, phasic, competent and demonstrates normal augmentation. POP V is compressible, spontaneous, phasic, competent and demonstrates normal augmentation. T/P Trunk is compressible. PTV is compressible. RT PerV is compressible. Procedure This is a venous duplex using B-mode, color flow and spectral Doppler. Exam performed in department. The exam was diagnostic. A preliminary report was called and/or faxed to ED international broadcast music librarian. VL/Venous Duplex US, Unilateral Interpretation Summary Deep veins of the right lower extremity are patent and compressible segmentally. There is no evidence of right lower extremity deep vein thrombosis. Valvular competence appears intact within the proximal deep venous system on the right . The right great saphenous vein appears patent and compressible segmentally. The left femoral vein is patent and compressible. Ordering Physician: Ronald Churchill Referring Physician: Finn Ferrell Performed By: Yasmani Mcdonald, T 03/14/241730 Date Omar Cortés MD CC: Dr. Ronald Churchill MD; Dr. Finn Ferrell MD Date Dictated: 03/13/24 1244 Date Transcribed: 03/14/241730 Machine Shop Instructor: Signed Normal [facility] Emergency Department Summary on 03-12-2024 Emergency Department Summary [facility] Medical Records Department [address] [place] [address] Emergency Department Summary 03/12/24 MR#: [id number] Acct: [id number] Name: SHANNON OLSON Rep #: [id number] : 1955 68 From: Ronald Churchill MD PCP: Dr. Finn Ferrell MD Status:DEP ER Location: ED HPI History of Present Illness Chief Complaint: Lower Extremity Injury Narrative Narrative: 68-year-old male who denies significant past medical history presents with right foot pain, swelling, and redness since yesterday. He denies any fevers or chills. He states that sometimes when he works all day, he has pain in his feet, but yesterday he noticed redness on the top of his foot, and a burning pain. He denies any chest pain or shortness of breath. No thigh or calf pain. He was concerned about a blood clot because of the swelling of his foot and the redness. [facility] Medical History Left rotator cuff tear History of echocardiogram Anxiety Excessive bleeding PONV (postoperative nausea and vomiting) Sleep apnea History of stress test Wears glasses Depression High cholesterol Gastric reflux Difficulty swallowing Non-smoker COPD (chronic obstructive pulmonary disease) Shortness of breath on exertion Leg cramps History of edema Hypertension Cardiology follow-up encounter History of heart attack History of atrial fibrillation Chest pain Sensorineural hearing loss, bilateral Dysphagia Epidermal inclusion cyst NSVT (nonsustained ventricular tachycardia) Screening for malignant neoplasm of intestine Cholelithiasis with chronic cholecystitis COPD (chronic obstructive pulmonary disease) CAD (coronary artery disease) Atrial fibrillation severe degenerative arthritis of right hip Rheumatoid arthritis Obstructive sleep apnea syndrome history of ischemic stroke HTN (hypertension) Hyperlipidemia Esophageal reflux Coronary atherosclerosis of [place] coronary vessel Home Medications ???Medication ???Instructions ???Recorded ???Last Taken ???Type minoxidil 10 mg tablet 5 mg PO BID blood pressure 10/05/19 05/20/23 History nitroglycerin 0.4 mg sublingual 0.4 mg sublingual Q5-15M PRN cp 10/05/19 Unknown History tablet atorvastatin 80 mg tablet 80 mg PO QHS #30 tabs 10/31/20 05/19/23 Rx clopidogrel 75 mg tablet (Plavix) 75 mg PO DAILY 09/09/21 05/19/23 History apixaban 5 mg tablet (Eliquis) 5 mg PO BID 10/30/21 05/18/23 History isosorbide mononitrate 30 mg 60 mg PO DAILY 01/07/22 05/20/23 History tablet,extended release 24 hr pantoprazole 40 mg tablet,delayed 40 mg PO QAM #90 tabs 04/01/22 05/19/23 Rx release (Protonix) metoprolol succinate 50 mg 25 mg PO DAILY 04/07/23 05/20/23 History tablet,extended release 24 hr ranolazine 1,000 mg 500 mg PO BID 04/07/23 05/20/23 History tablet,extended release,12 hr (Ranexa) torsemide 20 mg tablet 20 mg PO DAILY 04/07/23 05/19/23 History metoprolol tartrate 50 mg tablet 25 mg PO QHS 05/19/23 05/20/23 History amiodarone 200 mg tablet 200 mg PO DAILY 05/20/23 05/20/23 History sucralfate 1 gram tablet (Carafate) 1 g PO .qid #360 tabs 05/20/23 Unknown Rx magnesium citrate 300 ml PO X1 #1 BOTTLE 07/05/23 Unknown Rx ondansetron 4 mg disintegrating 4 mg PO Q8H PRN PRN Nausea #10 tabs 07/05/23 Unknown Rx tablet sulfamethoxazole 800 1 tab PO BID #20 tabs 03/12/24 Unknown Rx mg-trimethoprim 160 mg tablet (Bactrim DS) Allergy/AdvReac Type Severity Reaction Status Date / Time Penicillins Allergy Hives Verified 10/22/23 07:43 Family History Sister Cancer ovarian Diabetes Brother Diabetes Mother Heart disease Hypertension Father Prostate cancer Surgical History S/P PTCA (percutaneous transluminal coronary angioplasty) Hx of cholecystectomy History of colonoscopy ( 2014) History of esophagogastroduodenoscopy (EGD) ( 2014) History of knee joint replacement History of total right hip arthroplasty History of inguinal hernia repair History of left shoulder replacement History of total left hip arthroplasty History of coronary angioplasty History of heart artery stent History of cardiac catheterization Social History household members: none Smoking Status: Never smoker alcohol intake: never substance use type: does not use ROS ROS ED ROS Narrative Constitutional: No fever, no chills. HEENT: No sore throat. No neck pain. No loss of vision. No rhinorrhea. Cardiovascular: No chest pain. No palpitations. No pedal edema. Respiratory: No cough, no shortness of breath. Abdominal: No abdominal pain. No nausea. No vomiting. Genitourinary: No dysuria. No hematuria. Musc (more content not included)... Normal [facility] 36on 03-09-2024 36 ISACC 02/01/24 Normal [facility] Office Visiton 02-01-2024 Follow-up visit [id number] Shannon Olson 1955 M Date Provider Department Center 02/01/2024 [id number] ORTE[facility] [address] Ar Family History Problem Relation Age of Onset Diabetes Paternal Grandmother Diabetes Maternal Grandfather Cancer Sister Hypertension Mother Diabetes Sister Diabetes Paternal Grandfather Heart disease Paternal Grandmother Heart disease Paternal Grandfather Cancer Father Diabetes Brother Family Status - Relation Status Age at Paternal Grandmother Maternal Grandfather Sister Mother Alive Paternal Grandfather Father Brother Level of Service:12163 SD OFFICE/OUTPATIENT ESTABLISHED MOD MDM 30 MIN Reason for Visit and Comments: Hospital Follow-up [832] Normal [facility] Progress Noteon 02-01-2024 Progress Note [facility] [place] [address] [facility] [address] Dept: [phone] Dept Visit type: Established : 1955 Reason for Visit: Hospital Follow-up Assessment and Plan 1. Obesity (BMI 30-39.9) - [facility] 2. CAD in [place] artery 3. Essential hypertension 4. Mixed hyperlipidemia This is a very pleasant 68y/o male with complex CAD, most recent stent in 02/2021. He has chronic stable angina. We had a long conversation about his CAD and symptoms. He has had >20 caths in his life, >20 stents. We decided to continue medical management and observation for now. He has stopped his imdur and ranexa, and does not want to restart. This is fine, as long as angina stays reasonably controlled. He will let me know if he sees any change or escalation in his symptoms. We also discussed the fact that weight loss and increased exercise would be of benefit. Both from a health standpoint, and to possibly decrease his anginal burden. We have referred him to the weight management team here. Otherwise he should remain as active as possible and I will see him back in one year, sooner if needed. It was a pleasure seeing your patient in the office today. Please do not hesitate to call me with any questions. Follow up in about 1 year (around 01/31/2025). 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 He has a history of CAD s/p numerous stent procedures, all three vessels. Most recent PCI was 02/2021 (RCA), most recent cath was 02/2022 now showed occluded RCA, was not restented. He is doing relatively well. He continues to have chronic and stable angina. This hasn't change much since last cath. He is asking questions about weight management and the possibility of an injectable. Review of Systems Constitutional: Negative for activity change, chills, diaphoresis, fatigue and fever. HENT: Negative for nosebleeds and trouble swallowing. Eyes: Negative for discharge and visual disturbance. Respiratory: Negative for apnea, cough, chest tightness, shortness of breath and wheezing. Cardiovascular: Positive for chest pain (exertionally related and post prandial). Negative for palpitations and leg swelling. Gastrointestinal: Negative for abdominal distention, abdominal pain, blood in stool, diarrhea, nausea and vomiting. Endocrine: Negative for cold intolerance and heat intolerance. Genitourinary: Negative for hematuria. Musculoskeletal: Negative for gait problem and myalgias. Skin: Negative for color change and rash. Neurological: Negative for dizziness, seizures, syncope, facial asymmetry, speech difficulty, weakness, light-headedness, numbness and headaches. Hematological: Does not bruise/bleed easily. Psychiatric/Behavioral: Negative for dysphoric mood. Allergies Allergen Reactions Penicillins Rash Outpatient Medications Prior to Visit Medication Sig Dispense Refill amiodarone (Pacerone) 200 MG tablet Take 1 tablet (200 mg) by mouth daily. 90 tablet 1 amLODIPine (Norvasc) 5 MG tablet Take 1 tablet (5 mg) by mouth daily. 90 tablet 2 apixaban (Eliquis) 5 MG tablet Take 1 tablet (5 mg) by mouth 2 times daily. 180 tablet 3 cholecalciferol (Vitamin D-3) 20 MCG (800 UNIT) tablet Take 800 Units by mouth daily. clopidogrel (Plavix) 75 MG tablet Take 1 tablet (75 mg) by mouth daily. 90 tablet 3 metoprolol tartrate (Lopressor) 25 MG tablet Take 1 tablet (25 mg) by mouth 2 times daily. 180 tablet 3 minoxidil (Loniten) 10 MG tablet Take 10 mg by mouth daily. nitroglycerin (Nitrostat) 0.[address] 1 tablet under the tongue every 5 minutes as needed for Chest pain. If no relief after 3 tablets, call 9-1- immediately. 25 tablet 3 polyethylene glycol, PEG, 3350 (Miralax) 17 g packet Take 1 packet by mouth daily. rosuvastatin (Crestor) 40 MG tablet Take 1 tablet (40 mg) by mouth daily. 90 tablet 3 spironolactone (Aldactone) 25 MG tablet Take 1 tablet (25 mg) by mouth 2 times daily. 180 tablet 3 sucralfate (Carafate) 1 g tablet Take 1 g by mouth 4 times daily (before meals and nightly). torsemide (Demadex) 20 MG tablet TAKE ONE TABLET BY MOUTH DAILY - Take1 additional tablet if weight gain more than 2 pounds in 1 day 90 tablet 3 isosorbide mononitrate ER (Imdur) 60 MG 24 hr tablet Take 2 tablets (120 mg) by mouth daily. Do not crush or chew. 90 tablet 3 pantoprazole (Protonix) 40 MG EC tablet Take 1 tablet (40 mg) by mouth every morning (before breakfast). Do not crush, chew, or split. (Patient taking differently: Take 40 mg by mouth 2 times daily. Do not crush, chew, or split.) 90 tablet 3 ranolazine (Ranexa) 500 MG 12 hr tablet Take 1 tablet (500 mg) by mouth 2 times daily. Do not crush, chew, or split. 180 tablet 3 No facility-administered medications prior to visit. Past Medical History: Diagnosis Date Ang (more content not included)... Normal [facility] 36on 01-13-2024 36 Copy lab routed to Onesimo Benton's office [facility] 36 Spoke with patient a nd he does see Dr. Benton ISACC 12/2022. [address] Benton's phone number and patient states he will call to schedule appt. [place] [facility] to fax last lab results to Dr. Benton's office. Normal [facility] 36 ----- Message from Michael Dent APRN - RIA sent at 01/13/2024 7:31 AM EDT ----- Labs ordered for refill. Has appt 01/31 to establish with PB, former [facility] patient. Creatinine is elevated - has patient seen his checker cashier recently or does he have an upcoming appt? Last appt I can see 12/2022. If not, patient should make appt and we can send Dr. Benton these labs. Thanks! Normal [facility] Basic Metabolic Profile (BMP )on 01-11-2024 BUN/CRE 15.8 RATIO Normal 03-12 [facility] Comment on above: Performed By: #### L 501.9520, L500.4050, L100.0100 #### [facility] [address] [place], [address] CA,Total 9.1 mg/dL Normal 8.5-10.1 [facility] Comment on above: Performed By: #### L 501.9520, L500.4050, L100.0100 #### [facility] [address] [place], [address] Chloride [Moles/Vol] 109 mmol/L High 98-107 [facility] Comment on above: Performed By: #### L 501.9520, L500.4050, L100.0100 #### [facility] [address] [place], [address] CO2 [Moles/Vol] 28.0 mmol/L Normal 21.0-32.0 [facility] Comment on above: Performed By: #### L 501.9520, L500.4050, L100.0100 #### [facility] [address] [place], [address] Creatinine [Mass/Vol] 1.65 mg/dL High 0.70-1.30 [facility] Comment on above: Result Comment: The validity of the calculated GFR GFRAA in patients over 70 years has not been determined. Clinical correlation is essential. Performed By: #### L 501.9520, L500.4050, L100.0100 #### [facility] [address] [place], [address] EST GFR - AA 54 mL/min Low >60 [facility] Comment on above: Result Comment: Afri can Guinean GFR Calc Performed By: #### L 501.9520, L500.4050, L100.0100 #### [facility] [address] [place], [address] GAP 4 Low 5-15 [facility] Comment on above: Performed By: #### L 501.9520, L500.4050, L100.0100 #### [facility] [address] [place], [address] GFR/1.73 sq M.predicted among non-blacks MDRD (S/P/Bld) [Vol rate/Area] 44 mL/min/{1.73_m2} Low >60 [facility] Comment on above: Result Comment: Non- GFR Calc Performed By: #### L 501.9520, L500.4050, L100.0100 #### [facility] [address] [place], [address] Glucose [Mass/Vol] 105 mg/dL Normal 74-106 [facility] Comment on above: Result Comment: Fast ing Glucose result from 100 to 125 mg/dL suggests IMPAIRED HOMEOSTASIS per A.D.A. criteria. Performed By: #### L 501.9520, L500.4050, L100.0100 #### [facility] [address] [place], [address] Potassium [Moles/Vol] 3.7 mmol/L Normal 3.5-5.1 [facility] Comment on above: Performed By: #### L 501.9520, L500.4050, L100.0100 #### [facility] [address] [place], [address] Sodium [Moles/Vol] 141 mmol/L Normal 136-145 [facility] Comment on above: Performed By: #### L 501.9520, L500.4050, L100.0100 #### [facility] [address] [place], [address] Urea nitrogen [Mass/Vol] 26 mg/dL High 7-18 [facility] Comment on above: Performed By: #### L 501.9520, L500.4050, L100.0100 #### [facility] [place] [address], [address] 36on 01-05-2024 36 Spoke to patient. Fa xed BMP order to [place] moreno per his request [phone] [facility] 36on 01-03-2024 36 Received and scanned under [employer] [facility] 36on 12-31-2023 36 I called and spoke t o someone who is faxing this past years labs over [facility] 36on 12-30-2023 36 I tried calling PCP office and was on hold for 45 mins. I will try after 1:00p [facility] 36on 12-21-2023 36 Spoke with patient a nd he stated PCP office called him yesterday afternoon and stated medication alterative can be to have a vial and draw medication up, patient declined this option and stated PCP did not provide alterative. Advised patient to call insurance company on preferred brand of medication. If he does not have any alteratives, stated can offer to place referral to weight management services. Patient will call office back if he has any concerns. [facility] 36on 12-20-2023 36 Patient states he wa s returning call to [facility] to discuss his medication. Please contact to advise. [facility] 36 Spoke with patient a nd PCP Dr. Ferrell prescribed an injectable medication for weight loss. Patient went to brain picker medication from pharmacy and it was >$300. Patient requested our office called PCP office to see what further interventions can be done. Spoke with PCP office and medication called James (semaglutide). Explained patient's situation and office has options for patient. Instructed patient PCP office will reach out to patient to discuss. [facility] 36 Patient called RE: w eight loss injection his PCP is trying to rx. He can not remember the name. He tried to get filled at his pharmacy and it is > $300. He is wondering if we can help him get it through our pharmacy. [facility] CBC W/Diff, Automatedon 11-21 Absolute Lymph 1.38 X10 3/uL Normal 0.83-4.51 [facility] Comment on above: Order Comment: Order Date: 12/01/23Order Info: [id number] - CBCD Performed By: #### L 100.0500, L500.4050, L501.9520 #### [facility] [address] [place], [address] Absolute Neut 7.4 X10 3/uL Normal 2.0-7.7 [facility] Comment on above: Order Comment: Order Date: 12/01/23Order Info: 183- - CBCD Performed By: #### L 100.0500, L500.4050, L501.9520 #### [facility] [address] [place], [address] Basophils/100 WBC (Bld) 0.5 % Normal 0-1 [facility] Comment on above: Order Comment: Order Date: 12/01/23Order Info: 183- - CBCD Performed By: #### L 100.0500, L500.4050, L501.9520 #### [facility] [address] [place], [address] Eosinophils/100 WBC (Bld) 0.8 % Normal 0-5 [facility] Comment on above: Order Comment: Order Date: 12/01/23Order Info: 183- - CBCD Performed By: #### L 100.0500, L500.4050, L501.9520 #### [facility] [address] [place], [address] Erythrocyte distribution width (RBC) [Ratio] 14.2 % Normal 11.6-14.6 [facility] Comment on above: Order Comment: Order Date: 12/01/23Order Info: 018- - CBCD Performed By: #### L 100.0500, L500.4050, L501.9520 #### [facility] [address] [place], [address] Hematocrit (Bld) [Volume fraction] 38.7 % Low 40-54 [facility] Comment on above: Order Comment: Order Date: 12/01/23Order Info: 183- - CBCD Performed By: #### L 100.0500, L500.4050, L501.9520 #### [facility] [address] [place], [address] Hemoglobin (Bld) [Mass/Vol] 12.8 g/dL Low 13.0-16.5 [facility] Comment on above: Order Comment: Order Date: 12/01/23Order Info: 183- - CBCD Performed By: #### L 100.0500, L500.4050, L501.9520 #### [facility] [address] [place], [address] IG% 0.500 Normal 0.0-0.9 [facility] Comment on above: Order Comment: Order Date: 12/01/23Order Info: 183- - CBCD Result Comment: IG% - Immature Granulocytes (promyelocytes, myelocytes and metamyelocytes) > 1% indicates that a LEFT SHIFT is Present. Performed By: #### L 100.0500, L500.4050, L501.9520 #### [facility] [address] [place], [address] Lymphocytes/100 WBC (Bld) 14.6 % Low 19-41 [facility] Comment on above: Order Comment: Order Date: 12/01/23Order Info: 183- - CBCD Performed By: #### L 100.0500, L500.4050, L501.9520 #### [facility] [address] [place], [address] MCH (RBC) [Entitic mass] 29.2 pg Normal 27.0-32.0 [facility] Comment on above: Order Comment: Order Date: 12/01/23Order Info: 018- - CBCD Performed By: #### L 100.0500, L500.4050, L501.9520 #### [facility] [address] [place], [address] MCHC (RBC) [Mass/Vol] 33.1 g/dL Normal 32-36 [facility] Comment on above: Order Comment: Order Date: 12/01/23Order Info: 4-1 - CBCD Performed By: #### L 100.0500, L500.4050, L501.9520 #### [facility] [address] [place], [address] MCV (RBC) [Entitic vol] 88.4 fL Normal 80-94 [facility] Comment on above: Order Comment: Order Date: 12/01/23Order Info: 183- - CBCD Performed By: #### L 100.0500, L500.4050, L501.9520 #### [facility] [address] [place], [address] Monocytes/100 WBC (Bld) 5.0 % Normal 0-10 [facility] Comment on above: Order Comment: Order Date: 12/01/23Order Info: 018- - CBCD Performed By: #### L 100.0500, L500.4050, L501.9520 #### [facility] [address] [place], [address] Neutrophils/100 WBC (Bld) 78.6 % High 47-70 [facility] Comment on above: Order Comment: Order Date: 12/01/23Order Info: 0184-1 - CBCD Performed By: #### L 100.0500, L500.4050, L501.9520 #### [facility] [address] [place], [address] Nucleated RBC (Bld) [#/Vol] 0 10*3/uL Normal 0-5 [facility] Comment on above: Order Comment: Order Date: 12/01/23Order Info: 0184-1 - CBCD Performed By: #### L 100.0500, L500.4050, L501.9520 #### [facility] [address] [place], [address] Platelet mean volume (Bld) [Entitic vol] 9.8 fL Normal 6.2-12.0 [facility] Comment on above: Order Comment: Order Date: 12/01/23Order Info: 018- - CBCD Performed By: #### L 100.0500, L500.4050, L501.9520 #### [facility] [address] [place], [address] Platelets (Bld) [#/Vol] 226 10*3/uL Normal 150-450 [facility] Comment on above: Order Comment: Order Date: 12/01/23Order Info: 018- - CBCD Performed By: #### L 100.0500, L500.4050, L501.9520 #### [facility] [address] [place], [address] RBC (Bld) [#/Vol] 4.38 10*6/uL Low 4.6-6.2 [facility] Comment on above: Order Comment: Order Date: 12/01/23Order Info: 018- - CBCD Performed By: #### L 100.0500, L500.4050, L501.9520 #### [facility] [address] [place], [address] RDW SD 45.4 fl High 35.1-43.9 [facility] Comment on above: Order Comment: Order Date: 12/01/23Order Info: 018-1 - CBCD Performed By: #### L 100.0500, L500.4050, L501.9520 #### [facility] [address] [place], [address] WBC (Bld) [#/Vol] 9.5 10*3/uL Normal 4.4-11.0 [facility] Comment on above: Order Comment: Order Date: 12/01/23Order Info: 0184-1 - CBCD Performed By: #### L 100.0500, L500.4050, L501.9520 #### [facility] [address] [place], [address] Comprehensive Metabolic Prof mson 12-01-2023 Albumin [Mass/Vol] 3.7 g/dL Normal 3.2-5.0 [facility] Comment on above: Order Comment: Order Date: 12/01/23Order Info: 0786-1 - CMPOrder Info: [id number] - LIPIDOrder Info: [id number] - MGOrder Info: 3016-3 - TSHOrder Info: 2500-7 - TIBCOrder Info: 2498-4 - FEOrder Info: 227-4 - AG Performed By: #### L 100.0500, L500.4050, L501.9520 #### [facility] [address] [place], [address] Albumin/Globulin [Mass ratio] 1.0 {ratio} Normal 0.9-2.4 [facility] Comment on above: Order Comment: Order Date: 12/01/23Order Info: 86-1 - CMPOrder Info: [id number] - LIPIDOrder Info: [id number] - MGOrder Info: 3016-3 - TSHOrder Info: 2500-7 - TIBCOrder Info: 2498-4 - FEOrder Info: 2276-4 - AG Performed By: #### L 100.0500, L500.4050, L501.9520 #### [facility] [address] [place], [address] ALK P 97 U/L Normal 45-117 [facility] Comment on above: Order Comment: Order Date: 12/01/23Order Info: 0786-1 - CMPOrder Info: [id number] - LIPIDOrder Info: [id number] - MGOrder Info: 3016-3 - TSHOrder Info: 2500-7 - TIBCOrder Info: 2498-4 - FEOrder Info: 2276-4 - AG Performed By: #### L 100.0500, L500.4050, L501.9520 #### [facility] [address] [place], [address] ALT [Catalytic activity/Vol] 34 U/L Normal 16-61 [facility] Comment on above: Order Comment: Order Date: 12/01/23Order Info: 0786-1 - CMPOrder Info: [id number] - LIPIDOrder Info: [id number] - MGOrder Info: 3016-3 - TSHOrder Info: 2500-7 - TIBCOrder Info: 2498-4 - FEOrder Info: 2276-4 - AG Performed By: #### L 100.0500, L500.4050, L501.9520 #### [facility] [address] [place], [address] AST [Catalytic activity/Vol] 19 U/L Normal 15-37 [facility] Comment on above: Order Comment: Order Date: 12/01/23Order Info: 0786-1 - CMPOrder Info: [id number] - LIPIDOrder Info: [id number] - MGOrder Info: 3016-3 - TSHOrder Info: 2500-7 - TIBCOrder Info: 2498-4 - FEOrder Info: 2275-4 - AG Performed By: #### L 100.0500, L500.4050, L501.9520 #### [facility] [address] [place], [place], [address] Bilirubin [Mass/Vol] 1.60 mg/dL High 0.20-1.00 [facility] Comment on above: Order Comment: Order Date: 12/01/23Order Info: 0786-1 - CMPOrder Info: [id number] - LIPIDOrder Info: [id number] - MGOrder Info: 3016-3 - TSHOrder Info: 2500-7 - TIBCOrder Info: 2498-4 - FEOrder Info: 2276-4 - AG Result Comment: For patients on eltrombopag therapy, use of Dimension Mora TBIL is not recommended. Performed By: #### L 100.0500, L500.4050, L501.9520 #### [facility] [address] [place], [address] BUN/CRE 16.9 RATIO Normal 10-20 [facility] Comment on above: Order Comment: Order Date: 12/01/23Order Info: 0786-1 - CMPOrder Info: [id number] - LIPIDOrder Info: [id number] - MGOrder Info: 3016-3 - TSHOrder Info: 2500-7 - TIBCOrder Info: 2498-4 - FEOrder Info: 2276-4 - AG Performed By: #### L 100.0500, L500.4050, L501.9520 #### [facility] [address] [place], [address] CA,Total 9.3 mg/dL Normal 8.5-10.1 [facility] Comment on above: Order Comment: Order Date: 12/01/23Order Info: 86-1 - CMPOrder Info: [id number] - LIPIDOrder Info: [id number] - MGOrder Info: 3016-3 - TSHOrder Info: 2500-7 - TIBCOrder Info: 2498-4 - FEOrder Info: 2276-4 - AG Performed By: #### L 100.0500, L500.4050, L501.9520 #### [facility] [address] [place], [address] Chloride [Moles/Vol] 106 mmol/L Normal 98-107 [facility] Comment on above: Order Comment: Order Date: 12/01/23Order Info: 0786-1 - CMPOrder Info: [id number] - LIPIDOrder Info: [id number] - MGOrder Info: 3016-3 - TSHOrder Info: 2500-7 - TIBCOrder Info: 2498-4 - FEOrder Info: 2276-4 - AG Performed By: #### L 100.0500, L500.4050, L501.9520 #### [facility] [address] [place], [address] CO2 [Moles/Vol] 25.0 mmol/L Normal 21.0-32.0 [facility] Comment on above: Order Comment: Order Date: 12/01/23Order Info: 86-1 - CMPOrder Info: [id number] - LIPIDOrder Info: [id number] - MGOrder Info: 3016-3 - TSHOrder Info: 2500-7 - TIBCOrder Info: 2498-4 - FEOrder Info: 4 - AG Performed By: #### L 100.0500, L500.4050, L501.9520 #### [facility] [address] [place], [address] Creatinine [Mass/Vol] 2.01 mg/dL High 0.70-1.30 [facility] Comment on above: Order Comment: Order Date: 12/01/23Order Info: 785-1 - CMPOrder Info: [id number] - LIPIDOrder Info: [id number] - MGOrder Info: 6-3 - TSHOrder Info: [id number] - TIBCOrder Info: 2494 - FEOrder Info: 2275-08 - AG Result Comment: The validity of the calculated GFR GFRAA in patients over 70 years has not been determined. Clinical correlation is essential. Performed By: #### L 100.0500, L500.4050, L501.9520 #### [facility] [address] [place], [address] EST GFR - AA 43 mL/min Low >60 [facility] Comment on above: Order Comment: Order Date: 12/01/23Order Info: 785-1 - CMPOrder Info: [id number] - LIPIDOrder Info: [id number] - MGOrder Info: 3016-3 - TSHOrder Info: 2500-7 - TIBCOrder Info: 2498-4 - FEOrder Info: 2275-08 - AG Result Comment: Afri can [place] GFR Calc Performed By: #### L 100.0500, L500.4050, L501.9520 #### [facility] [address] [place], [address] GAP 8 Normal 5-15 [facility] Comment on above: Order Comment: Order Date: 12/01/23Order Info: 785- - CMPOrder Info: [id number] - LIPIDOrder Info: [id number] - MGOrder Info: 3 - TSHOrder Info: 7 - TIBCOrder Info: 2497-08 - FEOrder Info: 4 - AG Performed By: #### L 100.0500, L500.4050, L501.9520 #### [facility] [address] [place], [address] GFR/1.73 sq M.predicted among non-blacks MDRD (S/P/Bld) [Vol rate/Area] 35 mL/min/{1.73_m2} Low >60 [facility] Comment on above: Order Comment: Order Date: 12/01/23Order Info: 785-05 - CMPOrder Info: [id number] - LIPIDOrder Info: [id number] - MGOrder Info: [id number] - TSHOrder Info: 2499-11 - TIBCOrder Info: 2497-08 - FEOrder Info: 2275- - AG Result Comment: Non- GFR Calc Performed By: #### L 100.0500, L500.4050, L501.9520 #### [facility] [address] [place], [address] Globulin (S) [Mass/Vol] 3.8 g/dL Normal 2.2-4.2 [facility] Comment on above: Order Comment: Order Date: 12/01/23Order Info: 785- - CMPOrder Info: [id number] - LIPIDOrder Info: [id number] - MGOrder Info: 3 - TSHOrder Info: 7 - TIBCOrder Info: 2497-08 - FEOrder Info: 4 - AG Performed By: #### L 100.0500, L500.4050, L501.9520 #### [facility] [address] [place], [address] Glucose [Mass/Vol] 135 mg/dL High 74-106 [facility] Comment on above: Order Comment: Order Date: 12/01/23Order Info: 86-1 - CMPOrder Info: [id number] - LIPIDOrder Info: [id number] - MGOrder Info: 3016-3 - TSHOrder Info: 2500-7 - TIBCOrder Info: 2498-4 - FEOrder Info: 2276-4 - AG Result Comment: Fast ing Glucose result greater than or equal to 126 mg/dL suggests DIABETES MELLITUS per A.D.A. criteria. Performed By: #### L 100.0500, L500.4050, L501.9520 #### [facility] [address] [place], [address] Potassium [Moles/Vol] 3.7 mmol/L Normal 3.5-5.1 [facility] Comment on above: Order Comment: Order Date: 12/01/23Order Info: 785-1 - CMPOrder Info: [id number] - LIPIDOrder Info: [id number] - MGOrder Info: 3015-3 - TSHOrder Info: 7 - TIBCOrder Info: 2494 - FEOrder Info: 2275-4 - AG Performed By: #### L 100.0500, L500.4050, L501.9520 #### [facility] [address] [place], [address] Sodium [Moles/Vol] 139 mmol/L Normal 136-145 [facility] Comment on above: Order Comment: Order Date: 12/01/23Order Info: 86-1 - CMPOrder Info: [id number] - LIPIDOrder Info: [id number] - MGOrder Info: 3015-3 - TSHOrder Info: 2500-7 - TIBCOrder Info: 2498-4 - FEOrder Info: 2275-4 - AG Performed By: #### L 100.0500, L500.4050, L501.9520 #### [facility] [address] [place], [address] T PROT 7.5 g/dL Normal 6.4-8.2 [facility] Comment on above: Order Comment: Order Date: 12/01/23Order Info: 0786-1 - CMPOrder Info: [id number] - LIPIDOrder Info: [id number] - MGOrder Info: 3016-3 - TSHOrder Info: 2500-7 - TIBCOrder Info: 2498-4 - FEOrder Info: 2276-4 - AG Performed By: #### L 100.0500, L500.4050, L501.9520 #### [facility] [address] [place], [address] Urea nitrogen [Mass/Vol] 34 mg/dL High 7-18 [facility] Comment on above: Order Comment: Order Date: 12/01/23Order Info: 0786-1 - CMPOrder Info: [id number] - LIPIDOrder Info: [id number] - MGOrder Info: 3016-3 - TSHOrder Info: 2500-7 - TIBCOrder Info: 2498-4 - FEOrder Info: 2275-4 - AG Performed By: #### L 100.0500, L500.4050, L501.9520 #### [facility] [address] [place], [address] Ferritinon 12-01-2023 Ferritin [Mass/Vol] 290 ng/mL Normal 26-388 [facility] Comment on above: Order Comment: Order Date: 12/01/23Order Info: 0786-1 - CMPOrder Info: [id number] - LIPIDOrder Info: [id number] - MGOrder Info: 3016-3 - TSHOrder Info: 2500-7 - TIBCOrder Info: 2498-4 - FEOrder Info: 227-4 - AG Performed By: #### L 501.9910 #### [facility] [address] [place], [address] Ironon 12-01-2023 Iron [Mass/Vol] 72 ug/dL Normal 65-175 [facility] Comment on above: Order Comment: Order Date: 12/01/23Order Info: 0786-1 - CMPOrder Info: [id number] - LIPIDOrder Info: [id number] - MGOrder Info: 3016-3 - TSHOrder Info: 2500-7 - TIBCOrder Info: 2498-4 - FEOrder Info: 2275-4 - AG Performed By: #### L 501.9910 #### [facility] [address] [place], [address] Iron Binding Capacity,Totalo n 12-01-2023 TIBC 294 ug/dL Normal 250-450 [facility] Comment on above: Order Comment: Order Date: 12/01/23Order Info: 86-1 - CMPOrder Info: [id number] - LIPIDOrder Info: [id number] - MGOrder Info: 3016-3 - TSHOrder Info: 2500-7 - TIBCOrder Info: 2498-4 - FEOrder Info: 4 - AG Performed By: #### L 501.9910 #### [facility] [address] [place], [address] Lipid Profileon 12-01-2023 Cholesterol [Mass/Vol] 153 mg/dL Normal 200 [facility] Comment on above: Order Comment: Order Date: 12/01/23Order Info: 86-1 - CMPOrder Info: [id number] - LIPIDOrder Info: [id number] - MGOrder Info: 3016-3 - TSHOrder Info: 2500-7 - TIBCOrder Info: 2498-4 - FEOrder Info: 2275-4 - AG Result Comment: <200 mg/dL Desirable 200-240 mg/dL Borderline >240 mg/dL High Risk Performed By: #### L 100.0500, L500.4050, L501.9520 #### [facility] [address] [place], [address] Cholesterol in HDL [Mass/Vol] 52 mg/dL Normal [facility] Comment on above: Order Comment: Order Date: 12/01/23Order Info: 0786-1 - CMPOrder Info: [id number] - LIPIDOrder Info: [id number] - MGOrder Info: 3016-3 - TSHOrder Info: 2500-7 - TIBCOrder Info: 2498-4 - FEOrder Info: 227-4 - AG Result Comment: The drugs N-Acetylcysteine and Metamizole may falsely depress this assay. Reference Range HDL <40 mg/dL Low HDL Cholesterol HDL >or= 60 mg/dL High HDL Cholesterol Performed By: #### L 100.0500, L500.4050, L501.9520 #### [facility] [address] [place], [address] Cholesterol in LDL [Mass/Vol] 53 mg/dL Normal 0-130 [facility] Comment on above: Order Comment: Order Date: 12/01/23Order Info: 86-1 - CMPOrder Info: [id number] - LIPIDOrder Info: [id number] - MGOrder Info: 3016-3 - TSHOrder Info: 2499-7 - TIBCOrder Info: 2497-08 - FEOrder Info: 2275-08 - AG Performed By: #### L 100.0500, L500.4050, L501.9520 #### [facility] [address] [place], [address] Cholesterol in VLDL [Mass/Vol] 48 mg/dL High 5-40 [facility] Comment on above: Order Comment: Order Date: 12/01/23Order Info: 86-1 - CMPOrder Info: [id number] - LIPIDOrder Info: [id number] - MGOrder Info: 3016-3 - TSHOrder Info: 2499-7 - TIBCOrder Info: [id number] - FEOrder Info: 2275-08 - AG Performed By: #### L 100.0500, L500.4050, L501.9520 #### [facility] [address] [place], [address] Triglyceride [Mass/Vol] 240 mg/dL High [facility] Comment on above: Order Comment: Order Date: 12/01/23Order Info: 86-1 - CMPOrder Info: [id number] - LIPIDOrder Info: [id number] - MGOrder Info: 3016-3 - TSHOrder Info: 2500-7 - TIBCOrder Info: 2498-4 - FEOrder Info: 2275-08 - AG Result Comment: The drugs N-Acetylcysteine and Metamizole may falsely depress this assay. Serum Triglycerides Reference Interval Normal <150 mg/dL Borderline high 150 - 199 mg/dL High 200 - 499 mg/dL Very High > or = 500 mg/dL Performed By: #### L 100.0500, L500.4050, L501.9520 #### [facility] [address] [place], [address] Magnesiumon 12-01-2023 Magnesium [Mass/Vol] 2.2 mg/dL Normal 1.6-2.6 [facility] Comment on above: Order Comment: Order Date: 12/01/23Order Info: 785-1 - CMPOrder Info: [id number] - LIPIDOrder Info: [id number] - MGOrder Info: 3016-3 - TSHOrder Info: 2499-7 - TIBCOrder Info: 2497-08 - FEOrder Info: 2275-08 - AG Performed By: #### L 501.9910 #### [facility] [address] [place], [address] Thyroid Stim Hormone (TSH)on 12-01-2023 TSH 1.11 uIU/mL Normal 0.358-3.74 [facility] Comment on above: Order Comment: Order Date: 12/01/23Order Info: 785-1 - CMPOrder Info: [id number] - LIPIDOrder Info: [id number] - MGOrder Info: 3016-3 - TSHOrder Info: 2500-7 - TIBCOrder Info: 2497-08 - FEOrder Info: 2275-08 - AG Performed By: #### L 501.9910 #### [facility] [address] [place], [address] Urinalysis, Completeon 11-30 BACTERIA 0 SEEN Normal None Seen [facility] Comment on above: Order Comment: CLEAN CATCH Performed By: #### L 100.0500, L500.4050, L501.9520 #### [facility] [address] [place], [address] EPI,SQUAMOUS 0 SEEN Normal 0-5 [facility] Comment on above: Order Comment: CLEAN CATCH Performed By: #### L 100.0500, L500.4050, L501.9520 #### [facility] [address] [place], [address] Mucus Ql (Urine sed) 0 SEEN Normal [facility] Comment on above: Order Comment: CLEAN CATCH Performed By: #### L 100.0500, L500.4050, L501.9520 #### [facility] [address] [place], [address] RBC 0 SEEN Normal 0-5 [facility] Comment on above: Order Comment: CLEAN CATCH Performed By: #### L 100.0500, L500.4050, L501.9520 #### [facility] [address] [place], [address] WBC 0 SEEN Normal 0-[address] [place] [address] Comment on above: Order Comment: CLEAN CATCH Performed By: #### L 100.0500, L500.4050, L501.9520 #### [facility] [address] [place], [address] Vitamin D,25 Hydroxyon 11-30 Vitamin D 25-OH 46.4 ng/mL Normal [facility] Comment on above: Order Comment: Order Date: 12/01/23Order Info: [id number] - VITD25 Result Comment: Purnima min D 25(OH) Status Range Deficiency <20 ng/mL (50nmol/L) Insufficiency 20 - 30 ng/mL (50 - 75 nmol/L) Sufficiency 30 - 100 ng/mL (75 - 250 nmol/L) Toxicity >100 ng/mL (>250 nmol/L) Performed By: #### L 100.0500, L500.4050, L501.9520 #### [facility] [address] [place], [address] Surgery Visit Reporton 10-21 Surgery Visit Report [facility] [address] [place] [address] OFFICE VISIT Date of Service: 10/22/23 MR#: [id number] Acct: [id number] Name: SHANNON OLSON Rep #: [id number] : 1955 Provider: Dr. Dwayne Echols Cekatie finney MD Age/Sex: 67/M Location: [facility] Status: Signed Intake Vital Signs 08/23/23 09:57 Height 6 ft 2 in Intake Visit Reasons: ROUTINE FU Chief Complaint: f/u [employer] Required: No Is patient in pain?: No Allergies Penicillins Allergy (Verified 10/22/23 07:43) Hives Medications ???Medication ???Instructions ???Recorded ???Confirmed ???Type minoxidil 10 mg tablet 5 mg PO BID blood pressure 10/05/19 10/22/23 History nitroglycerin 0.4 mg sublingual 0.4 mg sublingual Q5-15M PRN cp 10/05/19 10/22/23 History tablet atorvastatin 80 mg tablet 80 mg PO QHS #30 tabs 10/31/20 10/22/23 Rx clopidogrel 75 mg tablet (Plavix) 75 mg PO DAILY 09/09/21 10/22/23 History apixaban 5 mg tablet (Eliquis) 5 mg PO BID 10/30/21 10/22/23 History isosorbide mononitrate 30 mg 60 mg PO DAILY 01/07/22 10/22/23 History tablet,extended release 24 hr pantoprazole 40 mg tablet,delayed 40 mg PO QAM #90 tabs 04/01/22 10/22/23 Rx release (Protonix) metoprolol succinate 50 mg 25 mg PO DAILY 04/07/23 10/22/23 History tablet,extended release 24 hr ranolazine 1,000 mg 500 mg PO BID 04/07/23 10/22/23 History tablet,extended release,12 hr (Ranexa) torsemide 20 mg tablet 20 mg PO DAILY 04/07/23 10/22/23 History metoprolol tartrate 50 mg tablet 25 mg PO QHS 05/19/23 10/22/23 History amiodarone 200 mg tablet 200 mg PO DAILY 05/20/23 10/22/23 History sucralfate 1 gram tablet (Carafate) 1 g PO .qid #360 tabs 05/20/23 10/22/23 Rx magnesium citrate 300 ml PO X1 #1 BOTTLE 07/05/23 10/22/23 Rx ondansetron 4 mg disintegrating 4 mg PO Q8H PRN PRN Nausea #10 tabs 07/05/23 10/22/23 Rx tablet PFSH Medical History Left rotator cuff tear History of echocardiogram Anxiety Excessive bleeding PONV (postoperative nausea and vomiting) Sleep apnea History of stress test Wears glasses Depression High cholesterol Gastric reflux Difficulty swallowing Non-smoker COPD (chronic obstructive pulmonary disease) Shortness of breath on exertion Leg cramps History of edema Hypertension Cardiology follow-up encounter History of heart attack History of atrial fibrillation Chest pain Sensorineural hearing loss, bilateral Dysphagia Epidermal inclusion cyst NSVT (nonsustained ventricular tachycardia) Screening for malignant neoplasm of intestine Cholelithiasis with chronic cholecystitis COPD (chronic obstructive pulmonary disease) CAD (coronary artery disease) Atrial fibrillation severe degenerative arthritis of right hip Rheumatoid arthritis Obstructive sleep apnea syndrome history of ischemic stroke HTN (hypertension) Hyperlipidemia Esophageal reflux Coronary atherosclerosis of [place] coronary vessel Surgical History S/P PTCA (percutaneous transluminal coronary angioplasty) Hx of cholecystectomy History of colonoscopy ( 2014) History of esophagogastroduodenoscopy (EGD) ( 2014) History of knee joint replacement History of total right hip arthroplasty History of inguinal hernia repair History of left shoulder replacement History of total left hip arthroplasty History of coronary angioplasty History of heart artery stent History of cardiac catheterization Family History Sister Cancer ovarian Diabetes Brother Diabetes Mother Heart disease Hypertension Father Prostate cancer Social History household members: none Smoking Status: Never smoker alcohol intake: never substance use type: does not use HPI HPI HPI: 67-year-old gentleman. I have most recently seen him August 11, 2023 in follow-up of esophageal dysphagia. Please refer to my extensive notes at that time. He was restarted on Carafate trying to assist with chest pain. In the interim he also has seen Dr. Kilpatrick Friend for GI issues including constipation. Also seem to have symptoms consistent with IBS. Since that time on October 04, 2023 he had a thyroid ultrasound and follow-up of the left thyroid nodule. There is felt to be no change. I have personally reviewed those images. Left thyroid nodule measures 1.59 x 1.36 x 1.4 cm. For this thyroid issue had previously seen him in the office on October 27, 2022. At that time he had a 1.5 cm nodule left thyroid. TI-RADS 3. After discussion with the patient we felt that follow-up ultrasound at the recommended 1 3 and 5 years would be appropriate. The patient states that th (more content not included)... Normal [facility] Thyroidon 10-04-2023 Thyroid [facility] [address] [place] [address] [id number] Thyroid MR#: [id number] Acct: [id number] Name: SHANNON OLSON Rep #: [id number] : [id number] M 67 From: Beka tariq MD PCP: Dr. Finn Ferrell MD Status: REG CLI Study: Thyroid Date of Exam: 10/04/23 Exam# [id number] Ordering Dr: Dwayne Bess MD [id number] STUDY: THYROID ULTRASOUND REASON FOR EXAM: Male, 67 years old. Left thyroid nodule. TECHNIQUE: Ultrasound evaluation of the thyroid was performed with real-time and static pierre-scale imaging. COMPARISON: Comparison is made with prior examination dated September 25, 2022. FINDINGS: RIGHT LOBE: The right lobe of the thyroid gland measures 4.4 cm x 2 cm x 1.8 cm. There is a heterogeneous echotexture. There are several subcentimeter hypodense nodules. These are unchanged. LEFT LOBE: The left lobe of the thyroid gland measures 4.5 cm x 1.7 cm x 2.1 cm. There is a heterogeneous echotexture. There is a dominant 1.67 x 1.4 cm x 1.4 cm hypoechoic solid nodule in the lower pole of the left lobe. Perinodular vascularity is seen. TI-RADS Category 3. ISTHMUS: The isthmus measures 8 mm. The regional lymph nodes are normal. US/Thyroid IMPRESSION: Stable examination. Electronically Signed: Beka Zuleta MD at 15:25 EDT , CC: Dr. Finn Ferrell MD; Dr. Dwayne Bess MD Machine [employer] In[employer]: Signed Normal [facility] Absolute lymphocyte countOrd ered By: Finn Ferrell on 07-13-2023 Lymphocytes Auto (Unsp spec) [#/Vol] 1.67 10*3/uL 0.83-4.51 [facility] Automated lymphocyte count a s percentage of total leukocytesOrdered By: Finn Ferrell on 07-13-2023 Lymphocytes/100 WBC Auto (Unsp spec) 16.8 % 19-41 [facility] Basophil percentageOrdered B y: Finn Ferrell on 07-13-2023 Basophil percentage 0-5 SEEN /hpf 0-5 [facility] Basophil percentage 3.8 mg/dL 2.5-4.9 [facility] Basophils/100 WBC (Bld) 0.6 % 0-1 [facility] Bilirubin [Mass/Vol] 1.10 mg/dL 0.20-1.00 [facility] Comment on above: For patients on eltr ombopag therapy, use of Dimension [place] TBIL is not recommended. Chloride [Moles/Vol] 109 mmol/L 98-107 [facility] Cholesterol [Mass/Vol] 174 mg/dL <200 [facility] Comment on above: <200 mg/dL Desirable 200-240 mg/dL Borderline >240 mg/dL High Risk Eosinophils/100 WBC (Bld) 1.2 % 0-5 [facility] Glucose [Mass/Vol] 90 mg/dL 74-106 [facility] Hemoglobin (Bld) [Mass/Vol] 13.0 g/dL 13.0-16.5 [facility] Monocytes/100 WBC (Bld) 6.7 % 0-10 [facility] Neutrophils (Bld) [#/Vol] 7.4 10*3/uL 2.0-7.7 [facility] Neutrophils/100 WBC (Bld) 74.2 % 47-70 [facility] Potassium [Moles/Vol] 4.2 mmol/L 3.5-5.1 [facility] Protein [Mass/Vol] 7.9 g/dL 6.4-8.2 [facility] Sodium [Moles/Vol] 141 mmol/L 136-145 [facility] Triglyceride [Mass/Vol] 260 mg/dL <199 [facility] Comment on above: The drugs N-Acetylcy steine and Metamizole may falsely depress this assay.Serum Triglycerides Reference Interval Normal <150 mg/dL Borderline high 150 - 199 mg/dL High 200 - 499 mg/dL Very High > or = 500 mg/dL WBC (Bld) [#/Vol] 10.0 10*3/uL 4.4-11.0 [facility] Bilirubin Test strip Ql (U)O rdered By: Finn Ferrell on 07-13-2023 Bilirubin Ql (U) Negative Negative [facility] Determination of erythrocyte mean corpuscular volume (MCV)Ordered By: Finn Ferrell on 07-13-2023 MCV (RBC) [Entitic vol] 89.6 fL 80-94 [facility] Erythrocyte distribution wid th ratioOrdered By: Finn Ferrell on 07-13-2023 Erythrocyte distribution width (RBC) [Ratio] 14.6 % 11.6-14.6 [facility] Erythrocyte distribution wid th standard deviationOrdered By: Finn Ferrell on 07-13-2023 Erythrocyte distribution width (RBC) [Entitic vol] 47.4 fL 35.1-43.9 [facility] Hematocrit Auto (Bld) [Volum e fraction]Ordered By: Finn Ferrell on 07-13-2023 Hematocrit (Bld) [Volume fraction] 40.5 % 40-54 [facility] Hyaline casts LM.LPF (Urine sed) [#/Area]Ordered By: Finn Ferrell on 07-13-2023 Hyaline casts (Urine sed) [#/Area] 5 /[LPF] 0-5 [facility] Immature granulocytes/100 WB C Auto (Bld)Ordered By: Finn Ferrell on 07-13-2023 Immature granulocytes/100 WBC (Bld) 0.500 % 0.0-0.9 [facility] Comment on above: IG% - Immature Granu locytes (promyelocytes, myelocytes and metamyelocytes) > 1% indicates that a LEFT SHIFT is Present. Ketones Test strip Ql (U)Ord ered By: Finn Ferrell on 07-13-2023 Ketones Ql (U) 5 mg/dl Negative [facility] Laboratory - Chemistry and C hemistry - challengeOrdered By: Finn Ferrell on 07-13-2023 Albumin/Globulin [Mass ratio] 0.9 {ratio} 0.9-2.4 [facility] ALP [Catalytic activity/Vol] 95 U/L 45-117 [facility] ALT [Catalytic activity/Vol] 31 U/L 16-61 [facility] Cholesterol in HDL [Mass/Vol] 52 mg/dL >40 [facility] Comment on above: The drugs N-Acetylcy steine and Metamizole may falsely depress this assay. Reference Range HDL <40 mg/dL Low HDL Cholesterol HDL >or= 60 mg/dL High HDL Cholesterol Cholesterol in LDL [Mass/Vol] 70 mg/dL 0-130 [facility] CO2 [Moles/Vol] 25.0 mmol/L 21.0-32.0 [facility] Globulin (S) [Mass/Vol] 4.2 g/dL 2.2-4.2 [facility] Magnesium [Mass/Vol] 2.2 mg/dL 1.6-2.6 [facility] Urea nitrogen/Creatinine [Mass ratio] 14.5 mg/mg 10-20 [facility] Laboratory - Hematology and Cell countsOrdered By: Finn Ferrell on 07-13-2023 MCH (RBC) [Entitic mass] 28.8 pg 27.0-32.0 [facility] MCHC (RBC) [Mass/Vol] 32.1 g/dL 32-36 [facility] Nucleated RBC/100 WBC (Bld) [Ratio] 0 % 0-5 [facility] Platelet mean volume (Bld) [Entitic vol] 9.8 fL 6.2-12.0 [facility] Platelets (Bld) [#/Vol] 292 10*3/uL 150-450 [facility] Mucus LM Ql (Urine sed)Order ed By: Finn Ferrell on 07-13-2023 Mucus Ql (Urine sed) 0 SEEN /hpf [facility] Nitrite Test strip Ql (U)Ord ered By: Finn Ferrell on 07-13-2023 Nitrite Ql (U) Negative Negative [facility] No Panel InformationOrdered By: Finn Ferrell on 07-13-2023 Urine RBC 0 SEEN /hpf 0-5 [facility] Estimated GFR (MDRD) Amer 51 mL/min >60 [facility] Comment on above: GFR Calc Estimated GFR (MDRD) Non-Af Amer 42 mL/min >60 [facility] Comment on above: Non- GFR Calc Parathyroid Hormone (Intact) 58.0 pg/mL 18.4-80.1 [facility] Vitamin D 25-Hydroxy 32.3 ng/mL [facility] Comment on above: Vitamin D 25(OH) Sta tus Range Deficiency <20 ng/mL (50nmol/L) Insufficiency 20 - 30 ng/mL (50 - 75 nmol/L) Sufficiency 30 - 100 ng/mL (75 - 250 nmol/L) Toxicity >100 ng/mL (>250 nmol/L) VLDL Cholesterol 52 mg/dL 5-40 [facility] Protein Test strip Ql (U)Ord ered By: Finn Ferrell on 07-13-2023 Protein Ql (U) Negative Negative [facility] RBC Auto (Bld) [#/Vol]Ordere d By: Finn Ferrell on 07-13-2023 RBC (Bld) [#/Vol] 4.52 10*6/uL 4.6-6.2 [facility] Serum or plasma calcium renu urement (mass/volume)Ordered By: Finn Ferrell on 07-13-2023 Calcium [Mass/Vol] 9.5 mg/dL 8.5-10.1 [facility] Serum or plasma creatinine m easurement (mass/volume)Ordered By: Finn Ferrell on 07-13-2023 Creatinine [Mass/Vol] 1.72 mg/dL 0.70-1.30 [facility] Comment on above: The validity of the calculated GFR & GFRAA in patients over 70 years has not been determined. Clinical correlation is essential. Serum or plasma urea nitroge n measurement (mass/volume)Ordered By: Finn Ferrell on 07-13-2023 Urea nitrogen [Mass/Vol] 25 mg/dL 7-18 [facility] Squamous epithelial cells de tection in urine sediment by light microscopyOrdered By: Finn Ferrell on 07-13-2023 Epithelial cells.squamous LM Ql (Urine sed) 0 SEEN /hpf 0-5 [facility] Thin prep Papanicolaou smear with manual screeningOrdered By: Finn Ferrell on 07-13-2023 Protein (U) [Mass/Vol] 9.6 mg/dL 0.0-11.8 [facility] Thin prep Papanicolaou smear with manual screening 3.7 g/dL 3.2-5.0 [facility] Thin prep Papanicolaou smear with manual screening 15 U/L 15-37 [facility] Thin prep Papanicolaou smear with manual screening 7 5-15 [facility] Urine blood detectionOrdered By: Finn Ferrell on 07-13-2023 RBC Ql (U) Negative Negative [facility] Urine clarityOrdered By: Benedicto Ferrell on 07-13-2023 Clarity (U) Clear Clear [facility] Urine color determinationOrd ered By: Finn Ferrell on 07-13-2023 Color (U) Yellow Yellow [facility] Urine creatinine measurement (mass/volume)Ordered By: Finn Ferrell on 07-13-2023 Creatinine (U) [Mass/Vol] 127.00 mg/dL NO RANGE EST. [facility] Urine glucose detectionOrder ed By: Finn Ferrell on 07-13-2023 Glucose Ql (U) Normal mg/dl Normal [facility] Urine leukocyte esterase det ection by dipstickOrdered By: Finn Ferrell on 07-13-2023 Leukocyte esterase Test strip Ql (U) 25 /ul Negative [facility] Urine pHOrdered By: Finn mccollum on 07-13-2023 pH (U) 5.0 [pH] 5.0 - 8.0 [facility] Urine protein/creatinine mas s ratioOrdered By: Finn Ferrell on 07-13-2023 Protein/Creatinine (U) [Mass ratio] 76 mg/g CRE 0-200 [facility] Urine sediment bacteria coun t by microscopy (number/high power field)Ordered By: Finn Ferrell on 07-13-2023 Bacteria LM.HPF (Urine sed) [#/Area] 0 /[HPF] None Seen [facility] Urine specific gravity measu rementOrdered By: Finn Ferrell on 07-13-2023 Specific gravity (U) [Rel density] 1.020 1.002-1.03 0 [facility] Urine urobilinogen measureme ntOrdered By: Finn Ferrell on 07-13-2023 Urobilinogen Ql (U) Normal mg/dl Normal [facility] Absolute lymphocyte countOrd ered By: Reynaldo Gaviria on 07-05-2023 Lymphocytes Auto (Unsp spec) [#/Vol] 1.18 10*3/uL 0.83-4.51 [facility] Automated lymphocyte count a s percentage of total leukocytesOrdered By: Reynaldo Gaviria on 07-05-2023 Lymphocytes/100 WBC Auto (Unsp spec) 15.2 % 19-41 [facility] Basophil percentageOrdered B y: Reynaldo Gaviria on 07-05-2023 Basophil percentage 0 SEEN /hpf 0-5 [facility] Basophils/100 WBC (Bld) 0.6 % 0-1 [facility] Bilirubin [Mass/Vol] 1.00 mg/dL 0.20-1.00 [facility] Comment on above: For patients on eltr ombopag therapy, use of Dimension [place] TBIL is not recommended. Chloride [Moles/Vol] 112 mmol/L 98-107 [facility] Eosinophils/100 WBC (Bld) 1.4 % 0-5 [facility] Glucose [Mass/Vol] 121 mg/dL 74-106 [facility] Comment on above: Fasting Glucose resu lt from 100 to 125 mg/dL suggests IMPAIRED HOMEOSTASIS per A.D.A. criteria. Hemoglobin (Bld) [Mass/Vol] 12.9 g/dL 13.0-16.5 [facility] Monocytes/100 WBC (Bld) 7.1 % 0-10 [facility] Neutrophils (Bld) [#/Vol] 5.8 10*3/uL 2.0-7.7 [facility] Neutrophils/100 WBC (Bld) 74.9 % 47-70 [facility] Potassium [Moles/Vol] 4.6 mmol/L 3.5-5.1 [facility] Protein [Mass/Vol] 7.6 g/dL 6.4-8.2 [facility] Sodium [Moles/Vol] 142 mmol/L 136-145 [facility] WBC (Bld) [#/Vol] 7.8 10*3/uL 4.4-11.0 [facility] Bilirubin Test strip Ql (U)O rdered By: Reynaldo Gaviria on 07-05-2023 Bilirubin Ql (U) Negative Negative [facility] Determination of erythrocyte mean corpuscular volume (MCV)Ordered By: Reynaldo Gaviria on 07-05-2023 MCV (RBC) [Entitic vol] 90.6 fL 80-94 [facility] Erythrocyte distribution wid th ratioOrdered By: Reynaldo Gaviria on 07-05-2023 Erythrocyte distribution width (RBC) [Ratio] 14.6 % 11.6-14.6 [facility] Erythrocyte distribution wid th standard deviationOrdered By: Reynaldo Gaviria on 07-05-2023 Erythrocyte distribution width (RBC) [Entitic vol] 47.9 fL 35.1-43.9 [facility] Hematocrit Auto (Bld) [Volum e fraction]Ordered By: Reynaldo Gaviria on 07-05-2023 Hematocrit (Bld) [Volume fraction] 40.3 % 40-54 [facility] Immature granulocytes/100 WB C Auto (Bld)Ordered By: Reynaldo Gaviria on 07-05-2023 Immature granulocytes/100 WBC (Bld) 0.800 % 0.0-0.9 [facility] Comment on above: IG% - Immature Granu locytes (promyelocytes, myelocytes and metamyelocytes) > 1% indicates that a LEFT SHIFT is Present. Ketones Test strip Ql (U)Ord ered By: Reynaldo Gaviria on 07-05-2023 Ketones Ql (U) Negative Negative [facility] Laboratory - Chemistry and C hemistry - challengeOrdered By: Reynaldo Gaviria on 07-05-2023 Albumin/Globulin [Mass ratio] 0.9 {ratio} 0.9-2.4 [facility] ALP [Catalytic activity/Vol] 97 U/L 45-117 [facility] ALT [Catalytic activity/Vol] 28 U/L 16-61 [facility] CO2 [Moles/Vol] 25.0 mmol/L 21.0-32.0 [facility] Globulin (S) [Mass/Vol] 3.9 g/dL 2.2-4.2 [facility] Lipase [Catalytic activity/Vol] 53 U/L 13-75 [facility] Comment on above: Please note:LIPASE r evised reference range effective 22. New Lipase methodology. Expected to produce lower values than the previous assay method. NEW Reference Range: 13 - 75 U/L Urea nitrogen/Creatinine [Mass ratio] 21.3 mg/mg 10-20 [facility] Laboratory - Hematology and Cell countsOrdered By: Reynaldo Gaviria on 07-05-2023 MCH (RBC) [Entitic mass] 29.0 pg 27.0-32.0 [facility] MCHC (RBC) [Mass/Vol] 32.0 g/dL 32-36 [facility] Nucleated RBC/100 WBC (Bld) [Ratio] 0 % 0-5 [facility] Platelet mean volume (Bld) [Entitic vol] 9.8 fL 6.2-12.0 [facility] Platelets (Bld) [#/Vol] 238 10*3/uL 150-450 [facility] Mucus LM Ql (Urine sed)Order ed By: Reynaldo Gaviria on 07-05-2023 Mucus Ql (Urine sed) 0 SEEN /hpf [facility] Nitrite Test strip Ql (U)Ord ered By: Reynaldo Gaviria on 07-05-2023 Nitrite Ql (U) Negative Negative [facility] No Panel InformationOrdered By: Reynaldo Gaviria on 07-05-2023 Urine RBC 0 SEEN /hpf 0-5 [facility] Estimated Creatinine Clearance Calc 61.91 ml/min [facility] Estimated GFR (MDRD) Amer 51 mL/min >60 [facility] Comment on above: GFR Calc Estimated GFR (MDRD) Non-Af Amer 42 mL/min >60 [facility] Comment on above: Non- GFR Calc Protein Test strip Ql (U)Ord ered By: Reynaldo Gaviria on 07-05-2023 Protein Ql (U) Negative Negative [facility] RBC Auto (Bld) [#/Vol]Ordere d By: Reynaldo Gaviria on 07-05-2023 RBC (Bld) [#/Vol] 4.45 10*6/uL 4.6-6.2 [facility] Serum or plasma calcium renu urement (mass/volume)Ordered By: Reynaldo Gaviria on 07-05-2023 Calcium [Mass/Vol] 9.2 mg/dL 8.5-10.1 [facility] Serum or plasma creatinine m easurement (mass/volume)Ordered By: Reynaldo Gaviria on 07-05-2023 Creatinine [Mass/Vol] 1.74 mg/dL 0.70-1.30 [facility] Comment on above: The validity of the calculated GFR & GFRAA in patients over 70 years has not been determined. Clinical correlation is essential. Serum or plasma urea nitroge n measurement (mass/volume)Ordered By: Reynaldo Gaviria on 07-05-2023 Urea nitrogen [Mass/Vol] 37 mg/dL 7-18 [facility] Squamous epithelial cells de tection in urine sediment by light microscopyOrdered By: Reynaldo Gaviria on 07-05-2023 Epithelial cells.squamous LM Ql (Urine sed) 0 SEEN /hpf 0-5 [facility] Thin prep Papanicolaou smear with manual screeningOrdered By: Reynaldo Gaviria on 07-05-2023 Thin prep Papanicolaou smear with manual screening 3.7 g/dL 3.2-5.0 [facility] Thin prep Papanicolaou smear with manual screening 9 U/L 15-37 [facility] Thin prep Papanicolaou smear with manual screening 5 5-15 [facility] Urine blood detectionOrdered By: Reynaldo Gaviria on 07-05-2023 RBC Ql (U) Negative Negative [facility] Urine clarityOrdered By: Lobito Gaviria on 07-05-2023 Clarity (U) Clear Clear [facility] Urine color determinationOrd ered By: Reynaldo Gaviria on 07-05-2023 Color (U) Yellow Yellow [facility] Urine glucose detectionOrder ed By: Reynaldo Gaviria on 07-05-2023 Glucose Ql (U) Normal mg/dl Normal [facility] Urine leukocyte esterase det ection by dipstickOrdered By: Reynaldo Gaviria on 07-05-2023 Leukocyte esterase Test strip Ql (U) Negative Negative [facility] Urine pHOrdered By: Reynaldo gonzalez on 07-05-2023 pH (U) 6.0 [pH] 5.0 - 8.0 [facility] Urine sediment bacteria coun t by microscopy (number/high power field)Ordered By: Reynaldo Gaviria on 07-05-2023 Bacteria LM.HPF (Urine sed) [#/Area] 0 /[HPF] None Seen [facility] Urine specific gravity measu rementOrdered By: Reynaldo Gaviria on 07-05-2023 Specific gravity (U) [Rel density] 1.015 1.002-1.03 0 [facility] Urine urobilinogen measureme ntOrdered By: Reynaldo Gaviria on 07-05-2023 Urobilinogen Ql (U) Normal mg/dl Normal [facility] Basophil percentageon 2022 Chloride [Moles/Vol] 112 mmol/L 98-107 [facility] Glucose [Mass/Vol] 116 mg/dL 74-106 [facility] Comment on above: Fasting Glucose resu lt from 100 to 125 mg/dL suggests IMPAIRED HOMEOSTASIS per A.D.A. criteria. Potassium [Moles/Vol] 4.1 mmol/L 3.5-5.1 [facility] Sodium [Moles/Vol] 142 mmol/L 136-145 [facility] Laboratory - Chemistry and C hemistry - challengeon 04-09-2023 CO2 [Moles/Vol] 28.0 mmol/L 21.0-32.0 [facility] Urea nitrogen/Creatinine [Mass ratio] 16.7 mg/mg 10-20 [facility] No Panel Informationon 04-09 Estimated GFR (MDRD) Amer 60 mL/min >60 [facility] Comment on above: GFR Calc Estimated GFR (MDRD) Non-Af Amer 50 mL/min >60 [facility] Comment on above: Non- GFR Calc Serum or plasma calcium renu urement (mass/volume)on 04-09-2023 Calcium [Mass/Vol] 8.5 mg/dL 8.5-10.1 [facility] Serum or plasma creatinine m easurement (mass/volume)on 04-09-2023 Creatinine [Mass/Vol] 1.50 mg/dL 0.70-1.30 [facility] Comment on above: The validity of the calculated GFR & GFRAA in patients over 70 years has not been determined. Clinical correlation is essential. Serum or plasma urea nitroge n measurement (mass/volume)on 04-09-2023 Urea nitrogen [Mass/Vol] 25 mg/dL 7-18 [facility] Thin prep Papanicolaou smear with manual screeningon 04-09-2023 Thin prep Papanicolaou smear with manual screening 2 5-15 [facility] Absolute lymphocyte countOrd ered By: Finn Ferrell on 03-24-2023 Lymphocytes Auto (Unsp spec) [#/Vol] 1.31 10*3/uL 0.83-4.51 [facility] Basophil percentageOrdered B y: Finn Ferrell on 03-24-2023 Basophil percentage 0 SEEN /hpf 0-5 [facility] Basophil percentage 2.4 mg/dL 2.5-4.9 [facility] Basophils/100 WBC (Bld) 0.5 % 0-1 [facility] Bilirubin [Mass/Vol] 0.80 mg/dL 0.20-1.00 [facility] Comment on above: For patients on eltr ombopag therapy, use of Dimension [place] TBIL is not recommended. Chloride [Moles/Vol] 109 mmol/L 98-107 [facility] Cholesterol [Mass/Vol] 131 mg/dL <200 [facility] Comment on above: <200 mg/dL Desirable 200-240 mg/dL Borderline >240 mg/dL High Risk Eosinophils/100 WBC (Bld) 1.2 % 0-5 [facility] Glucose [Mass/Vol] 84 mg/dL 74-106 [facility] Neutrophils (Bld) [#/Vol] 5.4 10*3/uL 2.0-7.7 [facility] Neutrophils/100 WBC (Bld) 73.4 % 47-70 [facility] Potassium [Moles/Vol] 3.7 mmol/L 3.5-5.1 [facility] Protein [Mass/Vol] 7.2 g/dL 6.4-8.2 [facility] Sodium [Moles/Vol] 140 mmol/L 136-145 [facility] Triglyceride [Mass/Vol] 226 mg/dL <199 [facility] Comment on above: The drugs N-Acetylcy steine and Metamizole may falsely depress this assay.Serum Triglycerides Reference Interval Normal <150 mg/dL Borderline high 150 - 199 mg/dL High 200 - 499 mg/dL Very High > or = 500 mg/dL WBC (Bld) [#/Vol] 7.4 10*3/uL 4.4-11.0 [facility] Bilirubin Test strip Ql (U)O rdered By: Finn Ferrell on 03-24-2023 Bilirubin Ql (U) Negative Negative [facility] Blood erythrocytes count (nu mber/volume)Ordered By: Finn Ferrell on 03-24-2023 RBC (Bld) [#/Vol] 4.16 10*6/uL 4.6-6.2 [facility] [facility] measurement (mass/volume)Ordered By: Finn Ferrell on 03-24-2023 Hemoglobin (Bld) [Mass/Vol] 12.1 g/dL 13.0-16.5 [facility] Blood lymphocytes/100 leukoc ytesOrdered By: Finn Ferrell on 03-24-2023 Lymphocytes/100 WBC (Bld) 17.8 % 19-41 [facility] Blood monocytes/100 leukocyt esOrdered By: Finn Ferrell on 03-24-2023 Monocytes/100 WBC (Bld) 6.6 % 0-10 [facility] Blood platelet mean volumeOr dered By: Finn Ferrell on 03-24-2023 Platelet mean volume (Bld) [Entitic vol] 9.6 fL 6.2-12.0 [facility] Determination of erythrocyte mean corpuscular volume (MCV)Ordered By: Finn Ferrell on 03-24-2023 MCV (RBC) [Entitic vol] 92.5 fL 80-94 [facility] Hematocrit Auto (Bld) [Volum e fraction]Ordered By: Finn Ferrell on 03-24-2023 Hematocrit (Bld) [Volume fraction] 38.5 % 40-54 [facility] Iron measurement (mass/mass) Ordered By: Finn Ferrell on 03-24-2023 Iron (Unsp spec) [Mass/Mass] 56 ug/dL 65-175 [facility] Ketones Test strip Ql (U)Ord ered By: Finn Ferrell on 03-24-2023 Ketones Ql (U) Negative Negative [facility] Laboratory - Chemistry and C hemistry - challengeOrdered By: Finn Ferrell on 03-24-2023 ALP [Catalytic activity/Vol] 88 U/L 45-117 [facility] ALT [Catalytic activity/Vol] 28 U/L 16-61 [facility] CO2 [Moles/Vol] 26.0 mmol/L 21.0-32.0 [facility] Cobalamin (Vitamin B12) [Mass/Vol] 304 pg/mL 211-911 [facility] Globulin (S) [Mass/Vol] 3.8 g/dL 2.2-4.2 [facility] Urea nitrogen/Creatinine [Mass ratio] 14.7 mg/mg 10-20 [facility] Laboratory - Hematology and Cell countsOrdered By: Finn Ferrell on 03-24-2023 Erythrocyte distribution width (RBC) [Entitic vol] 45.4 fL 35.1-43.9 [facility] Erythrocyte distribution width (RBC) [Ratio] 13.4 % 11.6-14.6 [facility] Immature granulocytes/100 WBC (Bld) 0.500 % 0.0-0.9 [facility] Comment on above: IG% - Immature Granu locytes (promyelocytes, myelocytes and metamyelocytes) > 1% indicates that a LEFT SHIFT is Present. MCH (RBC) [Entitic mass] 29.1 pg 27.0-32.0 [facility] Nucleated RBC/100 WBC (Bld) [Ratio] 0 % 0-5 [facility] MCHC Auto (RBC) [Mass/Vol]Or dered By: Finn Ferrell on 03-24-2023 MCHC (RBC) [Mass/Vol] 31.4 g/dL 32-36 [facility] Mucus LM Ql (Urine sed)Order ed By: Finn Ferrell on 03-24-2023 Mucus Ql (Urine sed) 0 SEEN /hpf [facility] Nitrite Test strip Ql (U)Ord ered By: Finn Ferrell on 03-24-2023 Nitrite Ql (U) Negative Negative [facility] No Panel InformationOrdered By: Finn Ferrell on 03-24-2023 Estimated GFR (MDRD) Amer 67 mL/min >60 [facility] Comment on above: GFR Calc Estimated GFR (MDRD) Non-Af Amer 56 mL/min >60 [facility] Comment on above: Non- GFR Calc Parathyroid Hormone (Intact) 54.0 pg/mL 18.4-80.1 [facility] Total Iron Binding Capacity 277 ug/dL 250-450 [facility] Vitamin D 25-Hydroxy 55.9 ng/mL [facility] Comment on above: Vitamin D 25(OH) Sta tus Range Deficiency <20 ng/mL (50nmol/L) Insufficiency 20 - 30 ng/mL (50 - 75 nmol/L) Sufficiency 30 - 100 ng/mL (75 - 250 nmol/L) Toxicity >100 ng/mL (>250 nmol/L) Platelets bldOrdered By: Benedicto Ferrell on 03-24-2023 Platelets (Bld) [#/Vol] 254 10*3/uL 150-450 [facility] Protein Test strip Ql (U)Ord ered By: Finn Ferrell on 03-24-2023 Protein Ql (U) Negative Negative [facility] Serum or plasma albumin renu urement (mass/volume)Ordered By: Finn Ferrell on 03-24-2023 Albumin [Mass/Vol] 3.4 g/dL 3.2-5.0 [facility] Serum or plasma albumin/glob ulin mass ratioOrdered By: Finn Ferrell on 03-24-2023 Albumin/Globulin [Mass ratio] 0.9 {ratio} 0.9-2.4 [facility] Serum or plasma calcium renu urement (mass/volume)Ordered By: Finn Ferrell on 03-24-2023 Calcium [Mass/Vol] 8.6 mg/dL 8.5-10.1 [facility] Serum or plasma cholesterol in HDL measurement (mass/volume)Ordered By: Finn Ferrell on 03-24-2023 Cholesterol in HDL [Mass/Vol] 47 mg/dL >40 [facility] Comment on above: The drugs N-Acetylcy steine and Metamizole may falsely depress this assay. Reference Range HDL <40 mg/dL Low HDL Cholesterol HDL >or= 60 mg/dL High HDL Cholesterol Serum or plasma cholesterol in VLDL measurement (mass/volume)Ordered By: Finn Ferrell on 03-24-2023 Cholesterol in VLDL [Mass/Vol] 45 mg/dL 5-40 [facility] Serum or plasma creatinine m easurement (mass/volume)Ordered By: Finn Ferrell on 03-24-2023 Creatinine [Mass/Vol] 1.36 mg/dL 0.70-1.30 [facility] Comment on above: The validity of the calculated GFR & GFRAA in patients over 70 years has not been determined. Clinical correlation is essential. Serum or plasma ferritin ellen surement (mass/volume)Ordered By: Finn Ferrell on 03-24-2023 Ferritin [Mass/Vol] 254 ng/mL 26-388 [facility] Serum or plasma folate measu rement (mass/volume)Ordered By: Finn Ferrell on 03-24-2023 Folate [Mass/Vol] 7.50 ng/mL 3.1-55.4 [facility] Serum or plasma low density lipoprotein (LDL) cholesterol measurement (mass/volume)Ordered By: Finn Ferrell on 03-24-2023 Cholesterol in LDL [Mass/Vol] 39 mg/dL 0-130 [facility] Serum or plasma urea nitroge n measurement (mass/volume)Ordered By: Finn Ferrell on 03-24-2023 Urea nitrogen [Mass/Vol] 20 mg/dL 7-18 [facility] Squamous epithelial cells de tection in urine sediment by light microscopyOrdered By: Finn Ferrell on 03-24-2023 Epithelial cells.squamous LM Ql (Urine sed) 0 SEEN /hpf 0-5 [facility] Thin prep Papanicolaou smear with manual screeningOrdered By: Finn Ferrell on 03-24-2023 Thin prep Papanicolaou smear with manual screening 13 U/L 15-37 [facility] Thin prep Papanicolaou smear with manual screening 5 5-15 [facility] Urine blood detectionOrdered By: Finn Ferrell on 03-24-2023 RBC Ql (U) Negative Negative [facility] RBC Ql (U) 0 SEEN /hpf 0-5 [facility] Urine clarityOrdered By: Benedicto Ferrell on 03-24-2023 Clarity (U) Clear Clear [facility] Urine color determinationOrd ered By: Finn Ferrell on 03-24-2023 Color (U) Yellow Yellow [facility] Urine glucose detectionOrder ed By: Finn Ferrell on 03-24-2023 Glucose Ql (U) Normal mg/dl Normal [facility] Urine leukocyte esterase det ection by dipstickOrdered By: Finn Ferrell on 03-24-2023 Leukocyte esterase Test strip Ql (U) Negative Negative [facility] Urine pHOrdered By: Finn mccollum on 03-24-2023 pH (U) 6.0 [pH] 5.0 - 8.0 [facility] Urine sediment bacteria coun t by microscopy (number/high power field)Ordered By: Finn Ferrell on 03-24-2023 Bacteria LM.HPF (Urine sed) [#/Area] 0 /[HPF] None Seen [facility] Urine specific gravity measu rementOrdered By: Finn Ferrell on 03-24-2023 Specific gravity (U) [Rel density] 1.015 1.002-1.03 0 [facility] Urobilinogen Auto test strip Ql (U)Ordered By: Finn Ferrell on 03-24-2023 Urobilinogen Ql (U) Normal mg/dl Normal [facility] Cardiac catheterization stud yon 03-01-2023 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 Soft tissue overlying the right radial artery was anesthetized with lidocaine injected subcutaneously. 6 Kenyan sheath was advanced into the right radial artery using modified Seldinger technique. Verapamil was administered through the sheath. Patient was anticoagulated with IV heparin. Left and right coronary angiograms were performed with 6 Kenyan 3.5 EBU & a 5 Kenyan JR4 catheters respectively. 5 Kenyan Pig tail catheter was advanced across the aortic valve using a guidewire to perform left heart cath with measurement of pressures. Catheter was aspirated and flushed with saline. Sheath was aspirated and flushed between all catheter exchanges. At the end of the case, radial sheath was withdrawn and arterial hemostasis was achieved with placement of Vasc Band over the right radial arteriotomy. Coronary Findings Diagnostic Dominance: Right Left Main: The vessel is large in size. The vessel is angiographically normal. Left Anterior Descending: The vessel is large in size. The vessel exhibits moderate disease. Ost LAD to Mid LAD lesion, 10% stenosed. The lesion was previously treated using a stent (unknown type). Left Circumflex: The vessel is large in size. The vessel exhibits moderate disease. Prox Cx to Mid Cx lesion, 10% stenosed. The lesion was previously treated using a stent (unknown type). Mid Cx lesion, 40% stenosed. Dist Cx lesion, 40% stenosed. Right Coronary Artery: The vessel is large in size. The vessel exhibits severe disease. Prox RCA to Mid RCA lesion, 100% stenosed. Diagnostic coronary angiography shows positive for 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. The lesion was previously treated using a stent (unknown type). Intervention No interventions have been documented. Left Ventricle Left ventriculogram was performed. Single view of the LV was obtained using power injection. Total volume injected: 30 mL. LV systolic pressure is normal. LV end diastolic pressure is normal. The estimated EF = 50 - 55%. Aortic Valve There is no aortic valve stenosis. Clinical Background Pleasant 67 YO M with a PMHx of CAD with multiple previous PHU to the RCA, Lcx, and LAD, HTN, PAF on Eliquis who presents for outpatient [facility] given angina with known CAD. Hemodynamics Interpretation LVEDP: 22 mmHg No significant aortic gradient Cath Recommendations Patient management should include: Aggressive medical management and continue with current meds. Will medically manage angina [place] The following segments are akinetic: basilar inferior. The following segments are normal: mid anterior, mid inferior, basilar anterior, apical anterior and apical inferior. CV CPACS HEMO [facility] ECG 12 lead - CLINIC PERFORM EDon 02-23-2023 Sinus Rhythm ABNORMAL Inferior myocardial infarction [facility] Basophil percentageon 2022 Bilirubin [Mass/Vol] 0.90 mg/dL 0.20-1.00 [facility] Comment on above: For patients on eltr ombopag therapy, use of Dimension Mora TBIL is not recommended. Chloride [Moles/Vol] 111 mmol/L 98-107 [facility] Cholesterol [Mass/Vol] 135 mg/dL <200 [facility] Comment on above: <200 mg/dL Desirable 200-240 mg/dL Borderline >240 mg/dL High Risk Glucose [Mass/Vol] 153 mg/dL 74-106 [facility] Comment on above: Fasting Glucose resu lt greater than or equal to 126 mg/dL suggests DIABETES MELLITUS per A.D.A. criteria. Potassium [Moles/Vol] 3.9 mmol/L 3.5-5.1 [facility] Protein [Mass/Vol] 7.3 g/dL 6.4-8.2 [facility] Sodium [Moles/Vol] 142 mmol/L 136-145 [facility] Triglyceride [Mass/Vol] 190 mg/dL <199 [facility] Comment on above: The drugs N-Acetylcy steine and Metamizole may falsely depress this assay.Serum Triglycerides Reference Interval Normal <150 mg/dL Borderline high 150 - 199 mg/dL High 200 - 499 mg/dL Very High > or = 500 mg/dL Laboratory - Chemistry and C hemistry - challengeon 02-19-2023 ALP [Catalytic activity/Vol] 95 U/L 45-117 [facility] ALT [Catalytic activity/Vol] 34 U/L 16-61 [facility] CO2 [Moles/Vol] 27.0 mmol/L 21.0-32.0 [facility] Globulin (S) [Mass/Vol] 3.7 g/dL 2.2-4.2 [facility] Urea nitrogen/Creatinine [Mass ratio] 11.4 mg/mg 10-20 [facility] No Panel Informationon 02-19 Estimated GFR (MDRD) Amer 57 mL/min >60 [facility] Comment on above: GFR Calc Estimated GFR (MDRD) Non-Af Amer 47 mL/min >60 [facility] Comment on above: Non- GFR Calc Serum or plasma albumin renu urement (mass/volume)on 02-19-2023 Albumin [Mass/Vol] 3.6 g/dL 3.2-5.0 [facility] Serum or plasma albumin/glob ulin mass ratioon 02-19-2023 Albumin/Globulin [Mass ratio] 1.0 {ratio} 0.9-2.4 [facility] Serum or plasma calcium renu urement (mass/volume)on 02-19-2023 Calcium [Mass/Vol] 8.6 mg/dL 8.5-10.1 [facility] Serum or plasma cholesterol in HDL measurement (mass/volume)on 02-19-2023 Cholesterol in HDL [Mass/Vol] 47 mg/dL >40 [facility] Comment on above: The drugs N-Acetylcy steine and Metamizole may falsely depress this assay. Reference Range HDL <40 mg/dL Low HDL Cholesterol HDL >or= 60 mg/dL High HDL Cholesterol Serum or plasma cholesterol in VLDL measurement (mass/volume)on 02-19-2023 Cholesterol in VLDL [Mass/Vol] 38 mg/dL 5-40 [facility] Serum or plasma creatinine m easurement (mass/volume)on 02-19-2023 Creatinine [Mass/Vol] 1.58 mg/dL 0.70-1.30 [facility] Comment on above: The validity of the calculated GFR & GFRAA in patients over 70 years has not been determined. Clinical correlation is essential. Serum or plasma low density lipoprotein (LDL) cholesterol measurement (mass/volume)on 02-19-2023 Cholesterol in LDL [Mass/Vol] 50 mg/dL 0-130 [facility] Serum or plasma urea nitroge n measurement (mass/volume)on 02-19-2023 Urea nitrogen [Mass/Vol] 18 mg/dL 7-18 [facility] Thin prep Papanicolaou smear with manual screeningon 02-19-2023 Thin prep Papanicolaou smear with manual screening 18 U/L 15-37 [facility] Thin prep Papanicolaou smear with manual screening 4 5-15 [facility] Absolute lymphocyte countOrd ered By: Finn Ferrell on 02-05-2023 Lymphocytes Auto (Unsp spec) [#/Vol] 1.13 10*3/uL 0.83-4.51 [facility] Basophil percentageOrdered B y: Finn Ferrell on 02-05-2023 Basophil percentage 0-5 SEEN /hpf 0-5 [facility] Basophils/100 WBC (Bld) 0.6 % 0-1 [facility] Bilirubin [Mass/Vol] 0.90 mg/dL 0.20-1.00 [facility] Comment on above: For patients on eltr ombopag therapy, use of Dimension Mora TBIL is not recommended. Chloride [Moles/Vol] 108 mmol/L 98-107 [facility] Cholesterol [Mass/Vol] 137 mg/dL <200 [facility] Comment on above: <200 mg/dL Desirable 200-240 mg/dL Borderline >240 mg/dL High Risk Eosinophils/100 WBC (Bld) 1.4 % 0-5 [facility] Glucose [Mass/Vol] 109 mg/dL 74-106 [facility] Comment on above: Fasting Glucose resu lt from 100 to 125 mg/dL suggests IMPAIRED HOMEOSTASIS per A.D.A. criteria. Neutrophils (Bld) [#/Vol] 6.1 10*3/uL 2.0-7.7 [facility] Neutrophils/100 WBC (Bld) 76.4 % 47-70 [facility] Potassium [Moles/Vol] 4.6 mmol/L 3.5-5.1 [facility] Protein [Mass/Vol] 7.5 g/dL 6.4-8.2 [facility] Sodium [Moles/Vol] 138 mmol/L 136-145 [facility] Triglyceride [Mass/Vol] 204 mg/dL <199 [facility] Comment on above: The drugs N-Acetylcy steine and Metamizole may falsely depress this assay.Serum Triglycerides Reference Interval Normal <150 mg/dL Borderline high 150 - 199 mg/dL High 200 - 499 mg/dL Very High > or = 500 mg/dL WBC (Bld) [#/Vol] 8.0 10*3/uL 4.4-11.0 [facility] Bilirubin Test strip Ql (U)O rdered By: Finn Ferrell on 02-05-2023 Bilirubin Ql (U) Negative Negative [facility] Blood erythrocytes count (nu mber/volume)Ordered By: Finn Ferrell on 02-05-2023 RBC (Bld) [#/Vol] 3.82 10*6/uL 4.6-6.2 [facility] Blood hemoglobin measurement (mass/volume)Ordered By: Finn Ferrell on 02-05-2023 Hemoglobin (Bld) [Mass/Vol] 11.5 g/dL 13.0-16.5 [facility] Blood lymphocytes/100 leukoc ytesOrdered By: Finn Ferrell on 02-05-2023 Lymphocytes/100 WBC (Bld) 14.2 % 19-41 [facility] Blood monocytes/100 leukocyt esOrdered By: Finn Ferrell on 02-05-2023 Monocytes/100 WBC (Bld) 6.9 % 0-10 [facility] Blood platelet mean volumeOr dered By: Finn Ferrell on 02-05-2023 Platelet mean volume (Bld) [Entitic vol] 9.4 fL 6.2-12.0 [facility] Determination of erythrocyte mean corpuscular volume (MCV)Ordered By: Finn Ferrell on 02-05-2023 MCV (RBC) [Entitic vol] 94.0 fL 80-94 [facility] Hematocrit Auto (Bld) [Volum e fraction]Ordered By: Finn Ferrell on 02-05-2023 Hematocrit (Bld) [Volume fraction] 35.9 % 40-54 [facility] Iron measurement (mass/mass) Ordered By: Finn Ferrell on 02-05-2023 Iron (Unsp spec) [Mass/Mass] 70 ug/dL 65-175 [facility] Ketones Test strip Ql (U)Ord ered By: Finn Ferrell on 02-05-2023 Ketones Ql (U) Negative Negative [facility] Laboratory - Chemistry and C hemistry - challengeOrdered By: Finn Ferrell on 02-05-2023 ALP [Catalytic activity/Vol] 91 U/L 45-117 [facility] ALT [Catalytic activity/Vol] 30 U/L 16-61 [facility] CO2 [Moles/Vol] 25.0 mmol/L 21.0-32.0 [facility] Cobalamin (Vitamin B12) [Mass/Vol] 359 pg/mL 211-911 [facility] Globulin (S) [Mass/Vol] 3.9 g/dL 2.2-4.2 [facility] Magnesium [Mass/Vol] 2.4 mg/dL 1.6-2.6 [facility] Urea nitrogen/Creatinine [Mass ratio] 21.1 mg/mg 10-20 [facility] Laboratory - Hematology and Cell countsOrdered By: Finn Ferrell on 02-05-2023 Erythrocyte distribution width (RBC) [Entitic vol] 48.9 fL 35.1-43.9 [facility] Erythrocyte distribution width (RBC) [Ratio] 14.3 % 11.6-14.6 [facility] Immature granulocytes/100 WBC (Bld) 0.500 % 0.0-0.9 [facility] Comment on above: IG% - Immature Granu locytes (promyelocytes, myelocytes and metamyelocytes) > 1% indicates that a LEFT SHIFT is Present. MCH (RBC) [Entitic mass] 30.1 pg 27.0-32.0 [facility] Nucleated RBC/100 WBC (Bld) [Ratio] 0 % 0-5 [facility] MCHC Auto (RBC) [Mass/Vol]Or dered By: Finn Ferrell on 02-05-2023 MCHC (RBC) [Mass/Vol] 32.0 g/dL 32-36 [facility] Mucus LM Ql (Urine sed)Order ed By: Finn Ferrell on 02-05-2023 Mucus Ql (Urine sed) 0 SEEN /hpf [facility] Nitrite Test strip Ql (U)Ord ered By: Finn Ferrell on 02-05-2023 Nitrite Ql (U) Negative Negative [facility] No Panel InformationOrdered By: Finn Ferrell on 02-05-2023 Estimated GFR (MDRD) Amer 52 mL/min >60 [facility] Comment on above: GFR Calc Estimated GFR (MDRD) Non-Af Amer 43 mL/min >60 [facility] Comment on above: Non- GFR Calc Total Iron Binding Capacity 296 ug/dL 250-450 [facility] Vitamin D 25-Hydroxy 36.4 ng/mL [facility] Comment on above: Vitamin D 25(OH) Sta tus Range Deficiency <20 ng/mL (50nmol/L) Insufficiency 20 - 30 ng/mL (50 - 75 nmol/L) Sufficiency 30 - 100 ng/mL (75 - 250 nmol/L) Toxicity >100 ng/mL (>250 nmol/L) Platelets bldOrdered By: Benedicto Ferrell on 02-05-2023 Platelets (Bld) [#/Vol] 267 10*3/uL 150-450 [facility] Protein Test strip Ql (U)Ord ered By: Finn Ferrell on 02-05-2023 Protein Ql (U) Negative Negative [facility] Serum or plasma albumin renu urement (mass/volume)Ordered By: Finn Ferrell on 02-05-2023 Albumin [Mass/Vol] 3.6 g/dL 3.2-5.0 [facility] Serum or plasma albumin/glob ulin mass ratioOrdered By: Finn Ferrell on 02-05-2023 Albumin/Globulin [Mass ratio] 0.9 {ratio} 0.9-2.4 [facility] Serum or plasma calcium renu urement (mass/volume)Ordered By: Finn Ferrell on 02-05-2023 Calcium [Mass/Vol] 9.0 mg/dL 8.5-10.1 [facility] Serum or plasma cholesterol in HDL measurement (mass/volume)Ordered By: Finn Ferrell on 02-05-2023 Cholesterol in HDL [Mass/Vol] 48 mg/dL >40 [facility] Comment on above: The drugs N-Acetylcy steine and Metamizole may falsely depress this assay. Reference Range HDL <40 mg/dL Low HDL Cholesterol HDL >or= 60 mg/dL High HDL Cholesterol Serum or plasma cholesterol in VLDL measurement (mass/volume)Ordered By: Finn Ferrell on 02-05-2023 Cholesterol in VLDL [Mass/Vol] 41 mg/dL 5-40 [facility] Serum or plasma creatinine m easurement (mass/volume)Ordered By: Finn Ferrell on 02-05-2023 Creatinine [Mass/Vol] 1.71 mg/dL 0.70-1.30 [facility] Comment on above: The validity of the calculated GFR & GFRAA in patients over 70 years has not been determined. Clinical correlation is essential. Serum or plasma ferritin ellen surement (mass/volume)Ordered By: Finn Ferrell on 02-05-2023 Ferritin [Mass/Vol] 405 ng/mL 26-388 [facility] Serum or plasma folate measu rement (mass/volume)Ordered By: Finn Ferrell on 02-05-2023 Folate [Mass/Vol] 9.20 ng/mL 3.1-55.4 [facility] Serum or plasma low density lipoprotein (LDL) cholesterol measurement (mass/volume)Ordered By: Finn Ferrell on 02-05-2023 Cholesterol in LDL [Mass/Vol] 48 mg/dL 0-130 [facility] Serum or plasma urea nitroge n measurement (mass/volume)Ordered By: Finn Ferrell on 02-05-2023 Urea nitrogen [Mass/Vol] 36 mg/dL 7-18 [facility] Squamous epithelial cells de tection in urine sediment by light microscopyOrdered By: Finn Ferrell on 02-05-2023 Epithelial cells.squamous LM Ql (Urine sed) 0 SEEN /hpf 0-5 [facility] Thin prep Papanicolaou smear with manual screeningOrdered By: Finn Ferrell on 02-05-2023 Thin prep Papanicolaou smear with manual screening 17 U/L 15-37 [facility] Thin prep Papanicolaou smear with manual screening 5 5-15 [facility] Urine blood detectionOrdered By: Finn Ferrell on 02-05-2023 RBC Ql (U) Negative Negative [facility] RBC Ql (U) 0 SEEN /hpf 0-5 [facility] Urine clarityOrdered By: Benedicto Ferrell on 02-05-2023 Clarity (U) Clear Clear [facility] Urine color determinationOrd ered By: Finn Ferrell on 02-05-2023 Color (U) Yellow Yellow [facility] Urine glucose detectionOrder ed By: Finn Ferrell on 02-05-2023 Glucose Ql (U) Normal mg/dl Normal [facility] Urine leukocyte esterase det ection by dipstickOrdered By: Finn Ferrell on 02-05-2023 Leukocyte esterase Test strip Ql (U) 25 /ul Negative [facility] Urine pHOrdered By: Finn mccollum on 02-05-2023 pH (U) 5.0 [pH] 5.0 - 8.0 [facility] Urine sediment bacteria coun t by microscopy (number/high power field)Ordered By: Finn Ferrell on 02-05-2023 Bacteria LM.HPF (Urine sed) [#/Area] 0 /[HPF] None Seen [facility] Urine specific gravity measu rementOrdered By: Finn Ferrell on 02-05-2023 Specific gravity (U) [Rel density] 1.010 1.002-1.03 0 [facility] Urobilinogen Auto test strip Ql (U)Ordered By: Finn Ferrell on 02-05-2023 Urobilinogen Ql (U) Normal mg/dl Normal [facility] Whole blood hemoglobin A1c/t otal hemoglobin ratio (mass fraction)Ordered By: Finn Ferrell on 02-05-2023 HbA1c (Bld) [Mass fraction] 5.3 % 3.8-5.6 [facility] Comment on above: Normal < 5.7 % Predi abetic 5.7 - 6.4 % Diabetic >or= 6.5 % Please note range changes. Absolute lymphocyte counton 01-27-2023 Lymphocytes Auto (Unsp spec) [#/Vol] 1.37 10*3/uL 0.83-4.51 [facility] Basophil percentageon 2022 Basophils/100 WBC (Bld) 0.4 % 0-1 [facility] Chloride [Moles/Vol] 109 mmol/L 98-107 [facility] Eosinophils/100 WBC (Bld) 1.1 % 0-5 [facility] Glucose [Mass/Vol] 135 mg/dL 74-106 [facility] Comment on above: Fasting Glucose resu lt greater than or equal to 126 mg/dL suggests DIABETES MELLITUS per A.D.A. criteria. Neutrophils (Bld) [#/Vol] 6.3 10*3/uL 2.0-7.7 [facility] Neutrophils/100 WBC (Bld) 74.3 % 47-70 [facility] Potassium [Moles/Vol] 4.4 mmol/L 3.5-5.1 [facility] Sodium [Moles/Vol] 140 mmol/L 136-145 [facility] WBC (Bld) [#/Vol] 8.5 10*3/uL 4.4-11.0 [facility] Blood erythrocytes count (nu mber/volume)on 01-27-2023 RBC (Bld) [#/Vol] 3.53 10*6/uL 4.6-6.2 [facility] Blood hemoglobin measurement (mass/volume)on 01-27-2023 Hemoglobin (Bld) [Mass/Vol] 10.9 g/dL 13.0-16.5 [facility] Blood lymphocytes/100 leukoc yteson 01-27-2023 Lymphocytes/100 WBC (Bld) 16.2 % 19-41 [facility] Blood monocytes/100 leukocyt eson 01-27-2023 Monocytes/100 WBC (Bld) 7.6 % 0-10 [facility] Blood platelet mean volumeon 01-27-2023 Platelet mean volume (Bld) [Entitic vol] 9.1 fL 6.2-12.0 [facility] Determination of erythrocyte mean corpuscular volume (MCV)on 01-27-2023 MCV (RBC) [Entitic vol] 91.8 fL 80-94 [facility] Hematocrit Auto (Bld) [Volum e fraction]on 01-27-2023 Hematocrit (Bld) [Volume fraction] 32.4 % 40-54 [facility] Laboratory - Chemistry and C hemistry - challengeon 01-27-2023 CO2 [Moles/Vol] 26.0 mmol/L 21.0-32.0 [facility] Urea nitrogen/Creatinine [Mass ratio] 22.3 mg/mg 10-20 [facility] Laboratory - Hematology and Cell countson 01-27-2023 Erythrocyte distribution width (RBC) [Entitic vol] 48.2 fL 35.1-43.9 [facility] Erythrocyte distribution width (RBC) [Ratio] 14.4 % 11.6-14.6 [facility] Immature granulocytes/100 WBC (Bld) 0.400 % 0.0-0.9 [facility] Comment on above: IG% - Immature Granu locytes (promyelocytes, myelocytes and metamyelocytes) > 1% indicates that a LEFT SHIFT is Present. MCH (RBC) [Entitic mass] 30.9 pg 27.0-32.0 [facility] Nucleated RBC/100 WBC (Bld) [Ratio] 0 % 0-5 [facility] MCHC Auto (RBC) [Mass/Vol]on 01-27-2023 MCHC (RBC) [Mass/Vol] 33.6 g/dL 32-36 [facility] No Panel Informationon 01-27 Estimated GFR (MDRD) Amer 46 mL/min >60 [facility] Comment on above: GFR Calc Estimated GFR (MDRD) Non-Af Amer 38 mL/min >60 [facility] Comment on above: Non- GFR Calc Platelets bldon 01-27-2023 Platelets (Bld) [#/Vol] 228 10*3/uL 150-450 [facility] Serum or plasma calcium renu urement (mass/volume)on 01-27-2023 Calcium [Mass/Vol] 9.0 mg/dL 8.5-10.1 [facility] Serum or plasma creatinine m easurement (mass/volume)on 01-27-2023 Creatinine [Mass/Vol] 1.88 mg/dL 0.70-1.30 [facility] Comment on above: The validity of the calculated GFR & GFRAA in patients over 70 years has not been determined. Clinical correlation is essential. Serum or plasma urea nitroge n measurement (mass/volume)on 01-27-2023 Urea nitrogen [Mass/Vol] 42 mg/dL 7-18 [facility] Thin prep Papanicolaou smear with manual screeningon 01-27-2023 Thin prep Papanicolaou smear with manual screening 5 5-15 [facility] Basic Metabolic Panel ([facility] )on 12-31-2022 Calcium [Mass/Vol] 9.5 mg/dL 8.6 - 10. 3 mg/dL [facility] Chloride [Moles/Vol] 106 mmol/L 98 - 11 0 mmol/L [facility] CO2 [Moles/Vol] 23 mmol/L 20 - 32 mmol/L [facility] [employer] Creatinine [Mass/Vol] 1.57 mg/dL High 0.70 - 1.35 mg/dL [facility] GFR/1.73 sq M.predicted among non-blacks MDRD (S/P/Bld) [Vol rate/Area] 48 mL/min/{1.73_m2} Low > OR = 60 mL/min/1.7 3m2 [facility] Glucose [Mass/Vol] 111 mg/dL High 65 - 99 mg/dL [facility] Comment on above: Fasting reference interval For someone without known diabetes, a glucose value between 100 and 125 mg/dL is consistent with prediabetes and should be confirmed with a follow-up test. Interpretation and review of laboratory results Abnormal [facility] Potassium [Moles/Vol] 4.9 mmol/L 3.5 - 5.3 mmol/L [facility] Sodium [Moles/Vol] 138 mmol/L 135 - 146 mmol/L [facility] Urea nitrogen [Mass/Vol] 30 mg/dL High 7 - 25 mg/dL [facility] Urea nitrogen/Creatinine [Mass ratio] 19 mg/mg [facility] Basophil percentageOrdered B y: Cecelia Koehler on 12-14-2022 Chloride [Moles/Vol] 108 mmol/L 98-107 [facility] Glucose [Mass/Vol] 106 mg/dL 74-106 [facility] Comment on above: Fasting Glucose resu lt from 100 to 125 mg/dL suggests IMPAIRED HOMEOSTASIS per A.D.A. criteria. Potassium [Moles/Vol] 4.0 mmol/L 3.5-5.1 [facility] Sodium [Moles/Vol] 140 mmol/L 136-145 [facility] Laboratory - Chemistry and C hemistry - challengeOrdered By: Cecelia Koehler on 12-14-2022 CO2 [Moles/Vol] 27.0 mmol/L 21.0-32.0 [facility] Urea nitrogen/Creatinine [Mass ratio] 17.6 mg/mg 10-20 [facility] No Panel InformationOrdered By: Cecelia Koehler on 12-14-2022 Estimated GFR (MDRD) Amer 59 mL/min >60 [facility] Comment on above: GFR Calc Estimated GFR (MDRD) Non-Af Amer 49 mL/min >60 [facility] Comment on above: Non- GFR Calc Serum or plasma calcium renu urement (mass/volume)Ordered By: Cecelia Koehler on 12-14-2022 Calcium [Mass/Vol] 9.2 mg/dL 8.5-10.1 [facility] Serum or plasma creatinine m easurement (mass/volume)Ordered By: Cecelia Koehler on 12-14-2022 Creatinine [Mass/Vol] 1.53 mg/dL 0.70-1.30 [facility] Comment on above: The validity of the calculated GFR & GFRAA in patients over 70 years has not been determined. Clinical correlation is essential. Serum or plasma urea nitroge n measurement (mass/volume)Ordered By: Cecelia Koehler on 12-14-2022 Urea nitrogen [Mass/Vol] 27 mg/dL 12-08 [facility] Thin prep Papanicolaou smear with manual screeningOrdered By: Cecelia Koehler on 12-14-2022 Thin prep Papanicolaou smear with manual screening 10-05 [facility] Basic metabolic 1998 panelon 12-08-2022 Anion gap [Moles/Vol] 8 mmol/L 3 - 13 mmol/L [facility] Calcium [Mass/Vol] 8.5 mg/dL 8.4 - 10. 4 mg/dL [facility] Chloride [Moles/Vol] 106 mmol/L 98 - 10 7 mmol/L [facility] CO2 [Moles/Vol] 19 mmol/L Low 22 - 30 mmol/L [facility] Creatinine [Mass/Vol] 1.65 mg/dL High 0.66 - 1.25 mg/dL [facility] GFR/1.73 sq M.predicted MDRD (S/P/Bld) [Vol rate/Area] 45.2 mL/min/{1.73_m2} Low - PINF [facility] Comment on above: Calculation based on the Chronic Kidney Disease Epidemiology Collaboration (CKD-EPI) equation refit without adjustment for race Glucose [Mass/Vol] 129 mg/dL High 70 - 100 mg/dL [facility] Potassium [Moles/Vol] 4.5 mmol/L 3.5 - 5.1 mmol/L [facility] Sodium [Moles/Vol] 134 mmol/L Low 135 - 145 mmol/L [facility] Urea nitrogen [Mass/Vol] 38 mg/dL High 9 - 20 mg/dL [facility] CBC panel Auto (Bld)Ordered By: Mallika Santiago on 12-08-2022 Erythrocyte distribution width (RBC) [Ratio] 15.0 % High 11.5 - 14.5 % [facility] Hematocrit (Bld) [Volume fraction] 36.0 % Low 40.0 - 52.0 % [facility] Hemoglobin (Bld) [Mass/Vol] 12.1 g/dL Low 13.0 - 18.0 g/dL [facility] Interpretation and review of laboratory results Abnormal [facility] MCH (RBC) [Entitic mass] 30.0 pg 26.0 - 34.0 pg [facility] MCHC (RBC) [Mass/Vol] 33.7 % 32.0 - 36.0 % [facility] MCV (RBC) [Entitic vol] 89.1 fL 80.0 - 98.0 fL [facility] Platelet mean volume (Bld) [Entitic vol] 7.5 fL 7.4 - 12.4 fL [facility] Platelets (Bld) [#/Vol] 186 10*3/uL 140 - 440 10*3/uL [facility] RBC (Bld) [#/Vol] 4.04 10*6/uL Low 4.40 - 5.90 10*6/uL [facility] WBC (Bld) [#/Vol] 6.9 10*3/uL 3.6 - 10.7 10*3/uL [facility] Laboratory - Chemistry and C hemistry - challengeon 12-08-2022 CRP [Mass/Vol] 26.3 mg/L High NINF - 10.0 mg/L [facility] No Panel Informationon 12-08 Interpretation and review of laboratory results Abnormal [facility] CBC panel Auto (Bld)Ordered By: Gibran Valverde on 12-07-2022 Erythrocyte distribution width (RBC) [Ratio] 15.1 % High 11.5 - 14.5 % [facility] Hematocrit (Bld) [Volume fraction] 34.9 % Low 40.0 - 52.0 % [facility] Hemoglobin (Bld) [Mass/Vol] 11.9 g/dL Low 13.0 - 18.0 g/dL [facility] Interpretation and review of laboratory results Abnormal [facility] MCH (RBC) [Entitic mass] 30.0 pg 26.0 - 34.0 pg [facility] MCHC (RBC) [Mass/Vol] 34.1 % 32.0 - 36.0 % [facility] MCV (RBC) [Entitic vol] 88.2 fL 80.0 - 98.0 fL [facility] Platelet mean volume (Bld) [Entitic vol] 8.0 fL 7.4 - 12.4 fL [facility] Platelets (Bld) [#/Vol] 213 10*3/uL 140 - 440 10*3/uL [facility] RBC (Bld) [#/Vol] 3.95 10*6/uL Low 4.40 - 5.90 10*6/uL [facility] WBC (Bld) [#/Vol] 9.4 10*3/uL 3.6 - 10.7 10*3/uL [facility] Comprehensive metabolic 1998 panelon 12-07-2022 Albumin [Mass/Vol] 3.9 g/dL 3.5 - 5.0 g/dL [facility] ALP [Catalytic activity/Vol] 76 U/L 38 - 126 U/L [facility] ALT [Catalytic activity/Vol] 39 U/L 0 - 49 U/L [facility] Anion gap [Moles/Vol] 7 mmol/L 3 - 13 mmol/L [facility] AST [Catalytic activity/Vol] 30 U/L 15 - 46 U/L [facility] Bilirubin [Mass/Vol] 1.2 mg/dL 0.2 - 1 .3 mg/dL [facility] Calcium [Mass/Vol] 8.6 mg/dL 8.4 - 10. 4 mg/dL [facility] Chloride [Moles/Vol] 106 mmol/L 98 - 10 7 mmol/L [facility] CO2 [Moles/Vol] 24 mmol/L 22 - 30 mmol/L [facility] Creatinine [Mass/Vol] 2.12 mg/dL High 0.66 - 1.25 mg/dL [facility] GFR/1.73 sq M.predicted MDRD (S/P/Bld) [Vol rate/Area] 33.5 mL/min/{1.73_m2} Low - PINF [facility] Comment on above: Calculation based on the Chronic Kidney Disease Epidemiology Collaboration (CKD-EPI) equation refit without adjustment for race Glucose [Mass/Vol] 104 mg/dL High 70 - 100 mg/dL [facility] Potassium [Moles/Vol] 4.8 mmol/L 3.5 - 5.1 mmol/L [facility] Protein [Mass/Vol] 7.2 g/dL 6.3 - 8.2 g/dL [facility] Sodium [Moles/Vol] 137 mmol/L 135 - 145 mmol/L [facility] Urea nitrogen [Mass/Vol] 36 mg/dL High 9 - 20 mg/dL [facility] Creatinine (U) [Mass/Vol]on 12-07-2022 CREATININE, URINE 173.4 mg/dL No Range [facility] Laboratory - Chemistry and C hemistry - challengeon 12-07-2022 Sodium (24H U) [Mass/Vol] 22 mmol/L Low 30 - 90 mmol/L [facility] Troponin I.cardiac [Mass/Vol] 0.013 ng/mL 0.000 - 0.034 ng/mL [facility] Laboratory - Urinalysison Protein (U) [Mass/Vol] mg/dL 0 - 1 2 mg/dL [facility] Lipid 1996 panelon 3 Cholesterol [Mass/Vol] 251 mg/dL High NINF - 200 mg/dL [facility] Cholesterol in HDL [Mass/Vol] 37 mg/dL Low 40 - 60 mg/dL [facility] Cholesterol in LDL [Mass/Vol] 169 mg/dL High 0 - <100 [facility] Cholesterol.total/Chol esterol in HDL [Mass ratio] 7 {ratio} [facility] Comment on above: Ref Range: < 3 Low Risk for CHD 3-6 Mod Risk for CHD > 6 High Risk for CHD Triglyceride [Mass/Vol] 227 mg/dL High NINF - 150 mg/dL [facility] No Panel Informationon 12-07 Interpretation and review of laboratory results Abnormal [facility] Interpretation and review of laboratory results Normal [facility] Sinus rhythm 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, old Electronically Signed On 12-07-2022 14:46:10 EDT by Stephan Crawley CV Stephan Jacobs MD - 12/07/2022 IMPRESSION: Sinus rhythm 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, old Electronically Signed On 12-07-2022 14:46:10 EDT by Stephan Crawley [facility] P [place] 35 degrees [facility] SD Interval 174 ms [facility] QRS [place] 25 degrees [facility] QRSD Interval 110 ms [facility] QT Interval 385 ms [facility] QTC Interval 445 ms [facility] [employer] T Wave [place] 19 degrees [facility] [employer] Sinus rhythm Inferior infarct, old Electronically Signed On 12-07-2022 11:24:10 EDT by Stephan Shelley MD - 12/07/2022 IMPRESSION: Sinus rhythm Inferior infarct, old Electronically Signed On 12-07-2022 11:24:10 EDT by Stephan Crawley [facility] [employer] [facility] Interpretation and review of laboratory results Abnormal [facility] [employer] No Panel InformationOrdered By: Stephan Crawley on 12-07-2022 P [place] 33 degrees [employer] Work Phone: SD Interval 181 ms [employer] Work Phone: QRS [place] 6 degrees [employer] Work Phone: QRSD Interval 116 ms [employer] Work Phone: QT Interval 389 ms [employer] Work Phone: QTC Interval 457 ms [employer] Work Phone: T Wave [place] 159 degrees [employer] Work Phone: [employer] Work Phone: Respiratory pathogens DNA an d RNA panel HARIKA+probe (Nph)on 12-07-2022 Adenovirus Not detected Not Detected [facility] B. pertussis DNA HARIKA+probe Ql (Unsp spec) Not detected Not Detected [facility] Bordetella parapertussis Not detected Not Detected [facility] Chlamydia pneumoniae Not detected Not Detected [facility] Coronavirus 229E Not detected Not Detected [facility] Coronavirus HKU1 Not detected Not Detected [facility] Coronavirus NL63 Not detected Not Detected [facility] Coronavirus OC43 Not detected Not Detected [facility] FLUAV RNA HARIKA+non-probe Ql (Nph) Not detected Not Detected [facility] FLUBV RNA HARIKA+non-probe Ql (Nph) Not detected Not Detected [facility] Human Metapneumovirus Not detected Not Detected [facility] Human Rhinovirus/Enterovirus Not detected Not Detected [facility] Interpretation and review of laboratory results Abnormal [facility] Mycoplasma pneumoniae Not detected Not Detected [facility] Parainfluenza 1 Not detected Not Detected [facility] Parainfluenza 2 Not detected Not Detected [facility] Parainfluenza 3 Not detected Not Detected [facility] Parainfluenza 4 Not detected Not Detected [facility] Respiratory Syncytial Virus Not detected Not Detected [facility] SARS-CoV-2 (COVID-19) RNA HARIKA+non-probe Ql (Nph) Detected Abnormal Not Detected [facility] Methodology: Multiplex PCR [facility] Troponin I.cardiac [Mass/Vol ]on 12-07-2022 Interpretation and review of laboratory results Normal [facility] Patients with high l evels of Biotin oral intake (ie >5 mg/day) may have falsely decreased Troponin levels. [facility] US Retroperitoneum limitedon 12-07-2022 Nonspecific mild cindy ateral perinephric edema. Benign appearing bilateral renal cortical cysts. Report Dictated on Electronically Signed By: Ryanne Oglesby MD Electronically Signed Date/Time: 12/07/2022 10:41 AM EDT [facility] Patient Name: SHANNON OLSON : 1955 Exam Date/Time: 12/07/2022 10:04 Procedure: US RETROPERITONEUM LIMITED Ordering Provider: EDGAR VENKATESH Reason For Exam: ACUTE KIDNEY INJURY Exam type: Ultrasound Renal Limited EXAM DATE AND TIME: 12/07/2022 10:04 AM EDT INDICATION: 67 years Male with ACUTE KIDNEY INJURY COMPARISON: CT chest from 10/22/2020 Technique: Grayscale sonographic images were obtained of the kidneys. FINDINGS: RIGHT KIDNEY: Size: 11.6 cm in craniocaudal dimension. Mild right perinephric edema. Echogenicity: Normal Parenchymal thickness: Normal Contour: Smooth Pelvicalyceal dilatation: None Calculus: none Mass: none Cyst: Simple 1.9 cm right renal cortical cyst. Simple appearing 1.1 cm right renal cortical cyst. LEFT KIDNEY: Size: 13.4 cm in craniocaudal dimension. Mild left perinephric edema. Echogenicity: Normal Parenchymal thickness: Normal Contour: Smooth Pelvicalyceal dilatation: None Calculus: none Mass: none Cyst: Simple appearing 3.9 cm left renal cortical cyst. Simple appearing 1.7 cm left renal cortical cyst. Bladder is nondistended, limiting evaluation. [facility] Ryanne Oglesby M D - 12/07/2022 Patient Name: SHANNON OLSON : 1955 [facility]#: [id number] Exam Date/Time: 12/07/2022 10:04 Procedure: US RETROPERITONEUM LIMITED Ordering Provider: EDGAR VENKATESH Reason For Exam: ACUTE KIDNEY INJURY Exam type: Ultrasound Renal Limited EXAM DATE AND TIME: 12/07/2022 10:04 AM EDT INDICATION: 67 years Male with ACUTE KIDNEY INJURY COMPARISON: CT chest from 10/22/2020 Technique: Grayscale sonographic images were obtained of the kidneys. FINDINGS: RIGHT KIDNEY: Size: 11.6 cm in craniocaudal dimension. Mild right perinephric edema. Echogenicity: Normal Parenchymal thickness: Normal Contour: Smooth Pelvicalyceal dilatation: None Calculus: none Mass: none Cyst: Simple 1.9 cm right renal cortical cyst. Simple appearing 1.1 cm right renal cortical cyst. LEFT KIDNEY: Size: 13.4 cm in craniocaudal dimension. Mild left perinephric edema. Echogenicity: Normal Parenchymal thickness: Normal Contour: Smooth Pelvicalyceal dilatation: None Calculus: none Mass: none Cyst: Simple appearing 3.9 cm left renal cortical cyst. Simple appearing 1.7 cm left renal cortical cyst. Bladder is nondistended, limiting evaluation. IMPRESSION: Nonspecific mild bilateral perinephric edema. Benign appearing bilateral renal cortical cysts. Report Dictated on Electronically Signed By: Ryanne Oglesby MD Electronically Signed Date/Time: 12/07/2022 10:41 AM EDT [facility] Radiology Study observation (narrative) [facility] US Retroperitoneum limitedOr dered By: Ryanne Oglesby on 12-07-2022 [employer] Work Phone: Urinalysis complete panel (U )on 12-07-2022 Bilirubin Ql (U) Negative Negative mg/dL [employer] [facility] Clarity (U) Clear Clear [employer] Color (U) Light Yellow Lt. Yellow [facility] [employer] Glucose Ql (U) Normal Normal (<70) mg/dL [facility] Hemoglobin Ql (U) Negative Negative mg/dL [facility] Interpretation and review of laboratory results Normal [facility] Ketones (U) [Mass/Vol] Negative Negat lorraine mg/dL [facility] Leukocyte esterase Test strip Ql (U) Negative Negative Nevin/uL [facility] Nitrite Ql (U) Negative Negative [facility] pH (U) 5.0 [pH] 5.0 - 8.0 pH [facility] Protein (U) [Mass/Vol] Negative Negat lorraine mg/dL [facility] Specific gravity (U) [Rel density] 1.015 1.005 - 1.030 [facility] Urobilinogen (U) [Mass/Vol] Normal Normal (0-1) mg/dL [facility] Vital signsOrdered By: Alanna Crawley on 12-07-2022 Heart rate 83 /min bpm [facility] Work Phone: Vital signson 12-07-2022 Heart rate 80 /min bpm [facility] XR Chest Single viewon 12-07 1. No focal infiltra bismark. 2. Prominence of the interstitium and central pulmonary vasculature consistent with mild congestive heart failure/fluid overload. Report Dictated on Electronically Signed By: Coy Rojas MD Electronically Signed Date/Time: 12/07/2022 11:30 AM EDT [employer] Patient Name: SHANNON OLSON : 1955 Exam Date/Time: 12/07/2022 08:42 Procedure: XR CHEST [...] vasculature. A right shoulder arthroplasty is noted. [facility] Coy Rojas MD - 12/07/2022 Patient Name: SHANNON OLSON : 1955 Exam Date/Time: 12/07/2022 08:42 Procedure: XR CHEST [...] vasculature. A right shoulder arthroplasty is noted. IMPRESSION: 1. No focal infiltrates. 2. Prominence of the interstitium and central pulmonary vasculature consistent with mild congestive heart failure/fluid overload. Report Dictated on Electronically Signed By: Coy Rojas MD Electronically Signed Date/Time: 12/07/2022 11:30 AM EDT [facility] Radiology Study observation (narrative) [facility] XR Chest Single viewOrdered By: Coy Rojas on 12-07-2022 [facility] Work Phone: Laboratory - Chemistry and C hemistry - challengeon 12-06-2022 Troponin I.cardiac [Mass/Vol] ng/mL 0.000 - 0.034 ng/mL [facility] No Panel InformationOrdered By: Kraig Bautista on 12-06-2022 Troponin I High Sensitivity 175 pg/mL 3.0-78.0 [facility] Comment on above: Critical Result(s) C alled at: 01:54:47 12/06/2022 by: MANUEL Lancaster RN ER. Results read back by same. Please Note: New Test Units and Gender Specific Reference Ranges. For more information see Policy Stat Procedure [facility] High Sensitivity Troponin (TNIH) and attachments. Troponin I.cardiac [Mass/Vol ]on 12-06-2022 Interpretation and review of laboratory results Normal [facility] Patients with high l evels of Biotin oral intake (ie >5 mg/day) may have falsely decreased Troponin levels. [facility] Absolute lymphocyte countOrd ered By: Kraig Bautista on 12-05-2022 Lymphocytes Auto (Unsp spec) [#/Vol] 0.59 10*3/uL 0.83-4.51 [facility] Basophil percentageOrdered B y: Kraig Bautista on 12-05-2022 Basophils/100 WBC (Bld) 0.2 % 0-1 [facility] Chloride [Moles/Vol] 109 mmol/L 98-107 [facility] Eosinophils/100 WBC (Bld) 0.0 % 0-5 [facility] Glucose [Mass/Vol] 199 mg/dL 74-106 [facility] Comment on above: Fasting Glucose resu lt greater than or equal to 126 mg/dL suggests DIABETES MELLITUS per A.D.A. criteria. Neutrophils (Bld) [#/Vol] 14.4 10*3/uL 2.0-7.7 [facility] Neutrophils/100 WBC (Bld) 92.5 % 47-70 [facility] [facility] Potassium [Moles/Vol] 4.9 mmol/L 3.5-5.1 [facility] Sodium [Moles/Vol] 137 mmol/L 136-145 [facility] WBC (Bld) [#/Vol] 15.5 10*3/uL 4.4-11.0 [facility] Blood erythrocytes count (nu mber/volume)Ordered By: Kraig Bautista on 12-05-2022 RBC (Bld) [#/Vol] 4.21 10*6/uL 4.6-6.2 [facility] Blood hemoglobin measurement (mass/volume)Ordered By: Kraig Bautista on 12-05-2022 Hemoglobin (Bld) [Mass/Vol] 12.5 g/dL 13.0-16.5 [facility] Blood lymphocytes/100 leukoc ytesOrdered By: Kraig Bautista on 12-05-2022 Lymphocytes/100 WBC (Bld) 3.8 % 19-41 [facility] Blood manual differential co mment interpretation (narrative result)Ordered By: Kraig Bautista on 12-05-2022 Manual differential comment Jose D (Bld) [Interp] SCANNED [facility] Comment on above: LYMPHOPENIA NOTED Blood monocytes/100 leukocyt esOrdered By: Kraig Bautista on 12-05-2022 Monocytes/100 WBC (Bld) 2.4 % 0-10 [facility] Blood platelet mean volumeOr dered By: Kraig Bautista on 12-05-2022 Platelet mean volume (Bld) [Entitic vol] 9.7 fL 6.2-12.0 [facility] Determination of erythrocyte mean corpuscular volume (MCV)Ordered By: Kraig Bautista on 12-05-2022 MCV (RBC) [Entitic vol] 91.7 fL 80-94 [facility] Hematocrit Auto (Bld) [Volum e fraction]Ordered By: Kraig Bautista on 12-05-2022 Hematocrit (Bld) [Volume fraction] 38.6 % 40-54 [facility] INR in Blood by Coagulation assayOrdered By: Henrietta Quinonez on 12-05-2022 INR Coag (Bld) [Relative time] 1.0 {INR} [facility] Laboratory - Chemistry and C hemistry - challengeOrdered By: Kraig Bautista on 12-05-2022 CO2 [Moles/Vol] 23.0 mmol/L 21.0-32.0 [facility] Natriuretic peptide B (Bld) [Mass/Vol] 14.5 pg/mL 0-100 [facility] Urea nitrogen/Creatinine [Mass ratio] 17.3 mg/mg 10-20 [facility] Laboratory - Chemistry and C hemistry - challengeOrdered By: Henrietta Quinonez on 12-05-2022 Magnesium [Mass/Vol] 2.2 mg/dL 1.6-2.6 [facility] Laboratory - CoagulationOrde red By: Henrietta Quinonez on 12-05-2022 aPTT Coag (Bld) [Time] 24.1 s 24.1-36.2 [facility] PT Coag (PPP) [Time] 13.0 s 11.7-14.9 [facility] Laboratory - Hematology and Cell countsOrdered By: Kraig Bautista on 12-05-2022 Erythrocyte distribution width (RBC) [Entitic vol] 47.4 fL 35.1-43.9 [facility] Erythrocyte distribution width (RBC) [Ratio] 14.3 % 11.6-14.6 [facility] Immature granulocytes/100 WBC (Bld) 1.100 % 0.0-0.9 [facility] Comment on above: IG% - Immature Granu locytes (promyelocytes, myelocytes and metamyelocytes) > 1% indicates that a LEFT SHIFT is Present. MCH (RBC) [Entitic mass] 29.7 pg 27.0-32.0 [facility] Nucleated RBC/100 WBC (Bld) [Ratio] 0 % 0-5 [facility] MCHC Auto (RBC) [Mass/Vol]Or dered By: Kraig Bautista on 12-05-2022 MCHC (RBC) [Mass/Vol] 32.4 g/dL 32-36 [facility] No Panel InformationOrdered By: Kraig Bautista on 12-05-2022 Estimated Creatinine Clearance Calc 53.42 ml/min [facility] Estimated GFR (MDRD) Amer 57 mL/min >60 [facility] Comment on above: GFR Calc Estimated GFR (MDRD) Non-Af Amer 47 mL/min >60 [facility] Comment on above: Non- GFR Calc Platelets bldOrdered By: Gerson Bautista on 12-05-2022 Platelets (Bld) [#/Vol] 263 10*3/uL 150-450 [facility] Serum or plasma calcium renu urement (mass/volume)Ordered By: Kraig Bautista on 12-05-2022 Calcium [Mass/Vol] 9.1 mg/dL 8.5-10.1 [facility] Serum or plasma creatinine m easurement (mass/volume)Ordered By: Kraig Bautista on 12-05-2022 Creatinine [Mass/Vol] 1.56 mg/dL 0.70-1.30 [facility] Comment on above: The validity of the calculated GFR & GFRAA in patients over 70 years has not been determined. Clinical correlation is essential. Serum or plasma urea nitroge n measurement (mass/volume)Ordered By: Kraig Bautista on 12-05-2022 Urea nitrogen [Mass/Vol] 27 mg/dL 7-18 [facility] Thin prep Papanicolaou smear with manual screeningOrdered By: Kraig Bautista on 12-05-2022 Thin prep Papanicolaou smear with manual screening 5 5-15 [facility] Basic metabolic 1998 panelon 12-03-2022 Anion gap [Moles/Vol] 9 mmol/L 3 - 13 mmol/L [facility] Calcium [Mass/Vol] 9.4 mg/dL 8.4 - 10. 4 mg/dL [facility] Chloride [Moles/Vol] 105 mmol/L 98 - 10 7 mmol/L [facility] CO2 [Moles/Vol] 25 mmol/L 22 - 30 mmol/L [facility] Creatinine [Mass/Vol] 1.39 mg/dL High 0.66 - 1.25 mg/dL [facility] GFR/1.73 sq M.predicted MDRD (S/P/Bld) [Vol rate/Area] 55.6 mL/min/{1.73_m2} Low - PINF [facility] Comment on above: Calculation based on the Chronic Kidney Disease Epidemiology Collaboration (CKD-EPI) equation refit without adjustment for race Glucose [Mass/Vol] 82 mg/dL 70 - 100 mg/dL [facility] Interpretation and review of laboratory results Abnormal [facility] Potassium [Moles/Vol] 4.4 mmol/L 3.5 - 5.1 mmol/L [facility] Sodium [Moles/Vol] 139 mmol/L 135 - 145 mmol/L [facility] Urea nitrogen [Mass/Vol] 29 mg/dL High 9 - 20 mg/dL [facility] Polysomnographyon 11-27-2022 [facility] Absolute lymphocyte countOrd ered By: Adrianna Royal on 11-25-2022 Lymphocytes Auto (Unsp spec) [#/Vol] 1.49 10*3/uL 0.83-4.51 [facility] Basophil percentageOrdered B y: Adrianna Estrellake on 11-25-2022 Basophils/100 WBC (Bld) 0.6 % 0-1 [facility] Bilirubin [Mass/Vol] 1.10 mg/dL 0.20-1.00 [facility] Comment on above: For patients on eltr ombopag therapy, use of Dimension Mora TBIL is not recommended. Chloride [Moles/Vol] 108 mmol/L 98-107 [facility] Eosinophils/100 WBC (Bld) 1.0 % 0-5 [facility] Glucose [Mass/Vol] 123 mg/dL 74-106 [facility] Comment on above: Fasting Glucose resu lt from 100 to 125 mg/dL suggests IMPAIRED HOMEOSTASIS per A.D.A. criteria. Neutrophils (Bld) [#/Vol] 5.6 10*3/uL 2.0-7.7 [facility] Neutrophils/100 WBC (Bld) 71.7 % 47-70 [facility] Potassium [Moles/Vol] 4.4 mmol/L 3.5-5.1 [facility] Protein [Mass/Vol] 7.8 g/dL 6.4-8.2 [facility] Sodium [Moles/Vol] 138 mmol/L 136-145 [facility] WBC (Bld) [#/Vol] 7.8 10*3/uL 4.4-11.0 [facility] Blood erythrocytes count (nu mber/volume)Ordered By: Adrianna Royal on 11-25-2022 RBC (Bld) [#/Vol] 4.42 10*6/uL 4.6-6.2 [facility] Blood hemoglobin measurement (mass/volume)Ordered By: Adrianna Royal on 11-25-2022 Hemoglobin (Bld) [Mass/Vol] 13.4 g/dL 13.0-16.5 [facility] Blood lymphocytes/100 leukoc ytesOrdered By: Adrianna Royal on 11-25-2022 Lymphocytes/100 WBC (Bld) 19.0 % 19-41 [facility] Blood monocytes/100 leukocyt esOrdered By: Adrianna Royal on 11-25-2022 Monocytes/100 WBC (Bld) 6.8 % 0-10 [facility] Blood platelet mean volumeOr dered By: Adrianna Royal on 11-25-2022 Platelet mean volume (Bld) [Entitic vol] 9.6 fL 6.2-12.0 [facility] Determination of erythrocyte mean corpuscular volume (MCV)Ordered By: Adrianna Royal on 11-25-2022 MCV (RBC) [Entitic vol] 89.1 fL 80-94 [facility] Hematocrit Auto (Bld) [Volum e fraction]Ordered By: Adrianna Royal on 11-25-2022 Hematocrit (Bld) [Volume fraction] 39.4 % 40-54 [facility] Laboratory - Chemistry and C hemistry - challengeOrdered By: Adrianna Royal on 11-25-2022 ALP [Catalytic activity/Vol] 104 U/L 45-117 [facility] ALT [Catalytic activity/Vol] 38 U/L 16-61 [facility] CO2 [Moles/Vol] 25.0 mmol/L 21.0-32.0 [facility] Globulin (S) [Mass/Vol] 4.1 g/dL 2.2-4.2 [facility] Urea nitrogen/Creatinine [Mass ratio] 18.4 mg/mg 10-20 [facility] Laboratory - Hematology and Cell countsOrdered By: Adrianna Royal on 11-25-2022 Erythrocyte distribution width (RBC) [Entitic vol] 44.2 fL 35.1-43.9 [facility] Erythrocyte distribution width (RBC) [Ratio] 13.5 % 11.6-14.6 [facility] Immature granulocytes/100 WBC (Bld) 0.900 % 0.0-0.9 [facility] Comment on above: IG% - Immature Granu locytes (promyelocytes, myelocytes and metamyelocytes) > 1% indicates that a LEFT SHIFT is Present. MCH (RBC) [Entitic mass] 30.3 pg 27.0-32.0 [facility] Nucleated RBC/100 WBC (Bld) [Ratio] 0 % 0-5 [facility] MCHC Auto (RBC) [Mass/Vol]Or dered By: Adrianna Royal on 11-25-2022 MCHC (RBC) [Mass/Vol] 34.0 g/dL 32-36 [facility] No Panel InformationOrdered By: Adrianna Royal on 11-25-2022 Estimated GFR (MDRD) Amer 61 mL/min >60 [facility] Comment on above: GFR Calc Estimated GFR (MDRD) Non-Af Amer 51 mL/min >60 [facility] Comment on above: Non- GFR Calc Thyroid Stimulating Hormone (TSH) 1.20 uIU/mL 0.358-3.74 [facility] Vitamin D 25-Hydroxy 27.8 ng/mL [facility] Comment on above: Vitamin D 25(OH) Sta tus Range Deficiency <20 ng/mL (50nmol/L) Insufficiency 20 - 30 ng/mL (50 - 75 nmol/L) Sufficiency 30 - 100 ng/mL (75 - 250 nmol/L) Toxicity >100 ng/mL (>250 nmol/L) Platelets bldOrdered By: Courtney kamar Genny on 11-25-2022 Platelets (Bld) [#/Vol] 242 10*3/uL 150-450 [facility] Serum or plasma albumin renu urement (mass/volume)Ordered By: Evertonterry Royal on 11-25-2022 Albumin [Mass/Vol] 3.7 g/dL 3.2-5.0 [facility] Serum or plasma albumin/glob ulin mass ratioOrdered By: Adiranna Royal on 11-25-2022 Albumin/Globulin [Mass ratio] 0.9 {ratio} 0.9-2.4 [facility] Serum or plasma calcium renu urement (mass/volume)Ordered By: Adrianna Royal on 11-25-2022 Calcium [Mass/Vol] 9.1 mg/dL 8.5-10.1 [facility] Serum or plasma creatinine m easurement (mass/volume)Ordered By: Adrianna Royal on 11-25-2022 Creatinine [Mass/Vol] 1.47 mg/dL 0.70-1.30 [facility] Comment on above: The validity of the calculated GFR & GFRAA in patients over 70 years has not been determined. Clinical correlation is essential. Serum or plasma urea nitroge n measurement (mass/volume)Ordered By: Adrianna Royal on 11-25-2022 Urea nitrogen [Mass/Vol] 27 mg/dL 7-18 [facility] Thin prep Papanicolaou smear with manual screeningOrdered By: Adrianna Royal on 11-25-2022 Thin prep Papanicolaou smear with manual screening 15 U/L 15-37 [facility] Thin prep Papanicolaou smear with manual screening 5 5-15 [facility] US Heart TransthoracicOrdere d By: Stephan Crawley on 11-18-2022 Aortic Sinus Valsalva 3.1 cm [facility] [employer] Phone: Aortic Sinus Valsalva Index 1.21 cm/m2 [facility] Ascending Aorta 4.5 cm [facility] [employer] Phone: Ascending Aorta Index 1.76 cm/m2 [facility] [employer] Phone: AV Area by Peak Velocity 2.1 cm2 [facility] [employer] Work Phone: [phone] AV Area by VTI 2.2 cm2 [facility] [employer] Work Phone: [phone] AV Mean Gradient 6 mmHg [facility] [employer] Work Phone: [phone] AV Mean Velocity 1.1 m/s [facility] [employer] Work Phone: [phone] AV Peak Gradient 9 mmHg [facility] [employer] Work Phone: [phone] AV Peak Velocity 1.5 m/s [facility] [employer] Work Phone: [phone] AV Velocity Ratio 0.67 [facility] [employer] Work Phone: [phone] AV VTI 31.8 cm [facility] [employer] Work Phone: [phone] GRACE/BSA Peak Velocity 0.8 cm2/m2 [facility] [employer] Work Phone: [phone] GRACE/BSA VTI 0.9 cm2/m2 [facility] [employer] Work Phone: [phone] Fractional Shortening 2D 31 % 28 - 44 % [facility] [employer] Work Phone: [phone] Global Longitudinal Strain -11.5 % [facility] [employer] Work Phone: [phone] Interpretation and review of laboratory results Abnormal [facility] [employer] Phone: [phone] IVC Diameter 2.2 cm [facility] [employer] Work Phone: [phone] IVSd 1.7 cm Abnormal 0.6 - 1.0 cm [facility] [employer] Phone: [phone] LA Diameter 4.9 cm [facility] [employer] Work Phone: [phone] LA Size Index 1.91 cm/m2 [facility] [employer] Work Phone: [phone] LA Volume 2C 81 mL Abnormal 18 - 58 mL [facility] [employer] Work Phone: [phone] LA Volume 4C 92 mL Abnormal 18 - 58 mL [facility] [employer] Work Phone: [phone] LA Volume A/L 93 mL [facility] [employer] Work Phone: [phone] LA Volume Index 2C 32 mL/m2 16 - 34 mL/m2 [facility] [employer] Work Phone: [phone] LA Volume Index 4C 36 mL/m2 Abnormal 16 - 34 mL/m2 [facility] [employer] Work Phone: LA Volume Index A/L 36 mL/m2 16 - 34 mL/m2 [employer] Work Phone: LV EDV A2C 156 mL [employer] Work Phone: LV EDV A4C 147 mL [employer] Work Phone: LV EDV BP 155 mL 67 - 155 mL [employer] Work Phone: LV EDV Index A2C 61 mL/m2 [employer] Work Phone: LV EDV Index A4C 57 mL/m2 [employer] Work Phone: LV EDV Index BP 61 mL/m2 [employer] Work Phone: LV ESV A2C 55 mL [employer] Work Phone: [phone] LV ESV A4C 69 mL [employer] Work Phone: [phone] LV ESV BP 62 mL Abnormal 22 - 58 mL [employer] Work Phone: [phone] LV ESV Index A2C 21 mL/m2 [employer] Work Phone: [phone] LV ESV Index A4C 27 mL/m2 [employer] Work Phone: [phone] LV ESV Index BP 24 mL/m2 [employer] Work Phone: [phone] LV Mass 2D 417.5 g Abnormal 88 - 224 g [employer] Phone: [phone] LV Mass 2D Index 163.1 g/m2 Abnormal 49 - 115 g/m2 [employer] Work Phone: [phone] LV RWT Ratio 0.59 [employer] Phone: [phone] LVIDd 5.4 cm 4.2 - 5.9 cm [employer] Work Phone: [phone] LVIDd Index 2.11 cm/m2 [employer] Work Phone: [phone] LVIDs 3.7 cm [employer] Phone: [phone] LVIDs Index 1.45 cm/m2 [employer] Work Phone: LVOT Area 3.1 cm2 [employer] Work Phone: [phone] LVOT Cardiac Output 13.3 liter/mi nu te [facility] [employer] Work Phone: [phone] LVOT Diameter 2.0 cm [facility] [employer] Work Phone: [phone] LVOT Mean Gradient 2 mmHg [facility] Work Phone: [phone] LVOT Peak Gradient 4 mmHg [facility] [employer] Work Phone: [phone] LVOT Peak Velocity 1.0 m/s [facility] [employer] Work Phone: [phone] LVOT Stroke Volume Index 27.2 mL/m2 [facility] Work Phone: [phone] LVOT SV 69.7 ml [facility] Work Phone: [phone] LVOT VTI 22.2 cm [facility] [employer] Work Phone: [phone] LVOT:AV VTI Index 0.70 [facility] [employer] Phone: [phone] LVPWd 1.6 cm Abnormal 0.6 - 1.0 cm [facility] [employer] Work Phone: [phone] MV A Velocity 0.61 m/s [facility] [employer] Work Phone: [phone] MV E Velocity 0.58 m/s [facility] [employer] Work Phone: [phone] MV E Wave Deceleration Time 215.7 ms [facility] [employer] Work Phone: [phone] MV E/A 0.95 [facility] [employer] Phone: [phone] RV Basal Dimension 3.0 cm [facility] [employer] Work Phone: [phone] RV Longitudinal Dimension 1.8 cm [facility] [employer] Work Phone: [phone] Sinotubular Junction 2.7 cm [facility] [employer] Work Phone: [phone] TAPSE 2.2 cm 1.7 cm [facility] [employer] Work Phone: [phone] TR Max Velocity 2.19 m/s [facility] Work Phone: [phone] TR Peak Gradient 19 mmHg [facility] Work Phone: [phone] [facility] [employer] Work Phone: [phone] Heart Transthoracicon Left Ventricle: Left ventricle size is normal. [...] is 4.5 cm. No significant valvular abnormalities. Left Ventricle Left ventricle size is normal. Moderately increased wall thickness. Normal left ventricular systolic function. The EF by visual approximation is 55%. Moderate hypokinesis of the following segments: basal inferolateral. Akinesis of the following segments: basal inferior. Right Ventricle Right ventricle size is normal. Normal systolic function. Left Atrium Left atrium is mildly dilated. Right Atrium Right atrium size is normal. IVC/SVC IVC diameter is normal and decreases greater than 50% during inspiration; therefore the estimated right atrial pressure is normal (~3 mmHg). Mitral Valve Valve structure is normal. Mild annular calcification. Mild (1+) regurgitation. No stenosis noted. Tricuspid Valve Valve structure is normal. Trace regurgitation. Aortic Valve Trileaflet. No cusp thickening. No cusp calcification. No regurgitation. No stenosis. Pulmonic Valve The pulmonic valve was not well visualized. Trace regurgitation. Ascending Aorta Normal sized sinuses of Valsalva. Moderately dilated ascending aorta. Ao ascending diameter is 4.5 cm. Pericardium No pericardial effusion. Septum No interatrial shunt visualized on color Doppler. Study Details Image quality: good. Heart rate: 57 bpm. Blood pressure: 138/80 mmHg. The underlying ECG rhythm was sinus rhythm. No contrast was given. Echo Additional Conclusions No significant valvular abnormalities. CV CPACS Basophil percentageon 2022 Chloride [Moles/Vol] 110 mmol/L 98-107 [facility] Glucose [Mass/Vol] 108 mg/dL 74-106 [facility] Comment on above: Fasting Glucose resu lt from 100 to 125 mg/dL suggests IMPAIRED HOMEOSTASIS per A.D.A. criteria. Potassium [Moles/Vol] 4.0 mmol/L 3.5-5.1 [facility] Sodium [Moles/Vol] 140 mmol/L 136-145 [facility] Laboratory - Chemistry and C hemistry - challengeon 10-27-2022 CO2 [Moles/Vol] 27.0 mmol/L 21.0-32.0 [facility] Urea nitrogen/Creatinine [Mass ratio] 21.1 mg/mg 10-20 [facility] No Panel Informationon 10-27 Estimated GFR (MDRD) Amer 59 mL/min >60 [facility] Comment on above: GFR Calc Estimated GFR (MDRD) Non-Af Amer 49 mL/min >60 [facility] Comment on above: Non- GFR Calc Serum or plasma calcium renu urement (mass/volume)on 10-27-2022 Calcium [Mass/Vol] 8.8 mg/dL 8.5-10.1 [facility] Serum or plasma creatinine m easurement (mass/volume)on 10-27-2022 Creatinine [Mass/Vol] 1.52 mg/dL 0.70-1.30 [facility] Comment on above: The validity of the calculated GFR & GFRAA in patients over 70 years has not been determined. Clinical correlation is essential. Serum or plasma urea nitroge n measurement (mass/volume)on 10-27-2022 Urea nitrogen [Mass/Vol] 32 mg/dL 7-18 [facility] Thin prep Papanicolaou smear with manual screeningon 10-27-2022 Thin prep Papanicolaou smear with manual screening 3 5-15 [facility] Basophil percentageon 2022 Chloride [Moles/Vol] 108 mmol/L 98-107 [facility] Glucose [Mass/Vol] 168 mg/dL 74-106 [facility] Comment on above: Fasting Glucose resu lt greater than or equal to 126 mg/dL suggests DIABETES MELLITUS per A.D.A. criteria. Potassium [Moles/Vol] 4.0 mmol/L 3.5-5.1 [facility] Sodium [Moles/Vol] 142 mmol/L 136-145 [facility] Laboratory - Chemistry and C hemistry - challengeon 10-22-2022 CO2 [Moles/Vol] 26.0 mmol/L 21.0-32.0 [facility] Urea nitrogen/Creatinine [Mass ratio] 30.3 mg/mg 10-20 [facility] No Panel Informationon 10-22 Estimated GFR (MDRD) Amer 50 mL/min >60 [facility] Comment on above: GFR Calc Estimated GFR (MDRD) Non-Af Amer 42 mL/min >60 [facility] Comment on above: Non- GFR Calc Serum or plasma calcium renu urement (mass/volume)on 10-22-2022 Calcium [Mass/Vol] 9.0 mg/dL 8.5-10.1 [facility] Serum or plasma creatinine m easurement (mass/volume)on 10-22-2022 Creatinine [Mass/Vol] 1.75 mg/dL 0.70-1.30 [facility] Comment on above: The validity of the calculated GFR & GFRAA in patients over 70 years has not been determined. Clinical correlation is essential. Serum or plasma urea nitroge n measurement (mass/volume)on 10-22-2022 Urea nitrogen [Mass/Vol] 53 mg/dL 7-18 [facility] Thin prep Papanicolaou smear with manual screeningon 10-22-2022 Thin prep Papanicolaou smear with manual screening 8 5-15 [facility] Basophil percentageon 2022 Chloride [Moles/Vol] 105 mmol/L 98-107 [facility] Glucose [Mass/Vol] 139 mg/dL 74-106 [facility] Comment on above: Fasting Glucose resu lt greater than or equal to 126 mg/dL suggests DIABETES MELLITUS per A.D.A. criteria. Potassium [Moles/Vol] 4.2 mmol/L 3.5-5.1 [facility] Sodium [Moles/Vol] 140 mmol/L 136-145 [facility] Laboratory - Chemistry and C hemistry - challengeon 10-06-2022 CO2 [Moles/Vol] 27.0 mmol/L 21.0-32.0 [facility] Natriuretic peptide B (Bld) [Mass/Vol] 14.7 pg/mL 0-100 [facility] Urea nitrogen/Creatinine [Mass ratio] 17.6 mg/mg 10-20 [facility] No Panel Informationon 10-06 D-Dimer Quantitative (PE/DVT) 0.37 FEU/ug/m 0.27-0.49 [facility] Comment on above: NORMAL D-Dimer level (<0.50) indicates no DVT or PE. Estimated GFR (MDRD) Amer 64 mL/min >60 [facility] Comment on above: GFR Calc Estimated GFR (MDRD) Non-Af Amer 53 mL/min >60 [facility] Comment on above: Non- GFR Calc Serum or plasma calcium renu urement (mass/volume)on 10-06-2022 Calcium [Mass/Vol] 9.2 mg/dL 8.5-10.1 [facility] Serum or plasma creatinine m easurement (mass/volume)on 10-06-2022 Creatinine [Mass/Vol] 1.42 mg/dL 0.70-1.30 [facility] Comment on above: The validity of the calculated GFR & GFRAA in patients over 70 years has not been determined. Clinical correlation is essential. Serum or plasma urea nitroge n measurement (mass/volume)on 10-06-2022 Urea nitrogen [Mass/Vol] 25 mg/dL 7-18 [facility] Thin prep Papanicolaou smear with manual screeningon 10-06-2022 Thin prep Papanicolaou smear with manual screening 8 5-15 [facility] Absolute lymphocyte counton 09-29-2022 Lymphocytes Auto (Unsp spec) [#/Vol] 1.29 10*3/uL 0.83-4.51 [facility] Basophil percentageon 2022 Basophils/100 WBC (Bld) 0.5 % 0-1 [facility] Bilirubin [Mass/Vol] 1.00 mg/dL 0.20-1.00 [facility] Comment on above: For patients on eltr ombopag therapy, use of Dimension Mor[place] TBIL is not recommended. Chloride [Moles/Vol] 111 mmol/L 98-107 [facility] Eosinophils/100 WBC (Bld) 1.2 % 0-5 [facility] Glucose [Mass/Vol] 107 mg/dL 74-106 [facility] Comment on above: Fasting Glucose resu lt from 100 to 125 mg/dL suggests IMPAIRED HOMEOSTASIS per A.D.A. criteria. Neutrophils (Bld) [#/Vol] 5.4 10*3/uL 2.0-7.7 [facility] Neutrophils/100 WBC (Bld) 73.9 % 47-70 [facility] Potassium [Moles/Vol] 3.9 mmol/L 3.5-5.1 [facility] Protein [Mass/Vol] 7.0 g/dL 6.4-8.2 [facility] Sodium [Moles/Vol] 143 mmol/L 136-145 [facility] WBC (Bld) [#/Vol] 7.4 10*3/uL 4.4-11.0 [facility] Blood erythrocytes count (nu mber/volume)on 09-29-2022 RBC (Bld) [#/Vol] 4.09 10*6/uL 4.6-6.2 [facility] Blood hemoglobin measurement (mass/volume)on 09-29-2022 Hemoglobin (Bld) [Mass/Vol] 12.1 g/dL 13.0-16.5 [facility] Blood lymphocytes/100 leukoc yteson 09-29-2022 Lymphocytes/100 WBC (Bld) 17.6 % 19-41 [facility] Blood monocytes/100 leukocyt eson 09-29-2022 Monocytes/100 WBC (Bld) 6.4 % 0-10 [facility] Blood platelet mean volumeon 09-29-2022 Platelet mean volume (Bld) [Entitic vol] 9.5 fL 6.2-12.0 [facility] Determination of erythrocyte mean corpuscular volume (MCV)on 09-29-2022 MCV (RBC) [Entitic vol] 91.7 fL 80-94 [facility] Direct bilirubinon 3 Bilirubin.direct [Mass/Vol] 0.25 mg/dL 0.00-0.30 [facility] Hematocrit Auto (Bld) [Volum e fraction]on 09-29-2022 Hematocrit (Bld) [Volume fraction] 37.5 % 40-54 [facility] Laboratory - Chemistry and C hemistry - challengeon 09-29-2022 ALP [Catalytic activity/Vol] 111 U/L 45-117 [facility] ALT [Catalytic activity/Vol] 39 U/L 16-61 [facility] CO2 [Moles/Vol] 27.0 mmol/L 21.0-32.0 [facility] Globulin (S) [Mass/Vol] 3.4 g/dL 2.2-4.2 [facility] Natriuretic peptide B (Bld) [Mass/Vol] 17.5 pg/mL 0-100 [facility] Urea nitrogen/Creatinine [Mass ratio] 17.1 mg/mg 10-20 [facility] Laboratory - Hematology and Cell countson 09-29-2022 Erythrocyte distribution width (RBC) [Entitic vol] 47.3 fL 35.1-43.9 [facility] Erythrocyte distribution width (RBC) [Ratio] 14.1 % 11.6-14.6 [facility] Immature granulocytes/100 WBC (Bld) 0.400 % 0.0-0.9 [facility] Comment on above: IG% - Immature Granu locytes (promyelocytes, myelocytes and metamyelocytes) > 1% indicates that a LEFT SHIFT is Present. MCH (RBC) [Entitic mass] 29.6 pg 27.0-32.0 [facility] Nucleated RBC/100 WBC (Bld) [Ratio] 0 % 0-5 [facility] MCHC Auto (RBC) [Mass/Vol]on 09-29-2022 MCHC (RBC) [Mass/Vol] 32.3 g/dL 32-36 [facility] No Panel Informationon 09-29 Estimated GFR (MDRD) Amer 76 mL/min >60 [facility] Comment on above: GFR Calc Estimated GFR (MDRD) Non-Af Amer 62 mL/min >60 [facility] Comment on above: Non- GFR Calc Platelets bldon 09-29-2022 Platelets (Bld) [#/Vol] 216 10*3/uL 150-450 [facility] Serum or plasma albumin renu urement (mass/volume)on 09-29-2022 Albumin [Mass/Vol] 3.6 g/dL 3.2-5.0 [facility] Serum or plasma calcium renu urement (mass/volume)on 09-29-2022 Calcium [Mass/Vol] 8.7 mg/dL 8.5-10.1 [facility] Serum or plasma creatinine m easurement (mass/volume)on 09-29-2022 Creatinine [Mass/Vol] 1.23 mg/dL 0.70-1.30 [facility] Comment on above: The validity of the calculated GFR & GFRAA in patients over 70 years has not been determined. Clinical correlation is essential. Serum or plasma urea nitroge n measurement (mass/volume)on 09-29-2022 Urea nitrogen [Mass/Vol] 21 mg/dL 7-18 [facility] Thin prep Papanicolaou smear with manual screeningon 09-29-2022 Thin prep Papanicolaou smear with manual screening 13 U/L 15-37 [facility] Thin prep Papanicolaou smear with manual screening 5 5-15 [facility] No Panel Informationon 09-28 Sinus Bradycardia WITHIN NORMAL LIMITS [facility] [employer] No Panel InformationOrdered By: Zoie Gonzales on 09-28-2022 [facility] [employer] Work Phone: Absolute lymphocyte countOrd ered By: Dr. Ferrell on 09-22-2022 Lymphocytes Auto (Unsp spec) [#/Vol] 1.24 10*3/uL 0.83-4.51 [facility] Basophil percentageOrdered B y: Dr. Ferrell on 09-22-2022 Basophils/100 WBC (Bld) 0.4 % 0-1 [facility] Bilirubin [Mass/Vol] 1.30 mg/dL 0.20-1.00 [facility] Comment on above: For patients on eltr ombopag therapy, use of Dimension Mora TBIL is not recommended. Chloride [Moles/Vol] 108 mmol/L 98-107 [facility] Cholesterol [Mass/Vol] 133 mg/dL <200 [facility] Comment on above: <200 mg/dL Desirable 200-240 mg/dL Borderline >240 mg/dL High Risk Eosinophils/100 WBC (Bld) 1.7 % 0-5 [facility] Glucose [Mass/Vol] 103 mg/dL 74-106 [facility] Comment on above: Fasting Glucose resu lt from 100 to 125 mg/dL suggests IMPAIRED HOMEOSTASIS per A.D.A. criteria. Neutrophils (Bld) [#/Vol] 5.8 10*3/uL 2.0-7.7 [facility] Neutrophils/100 WBC (Bld) 75.5 % 47-70 [facility] Potassium [Moles/Vol] 3.6 mmol/L 3.5-5.1 [facility] Protein [Mass/Vol] 7.1 g/dL 6.4-8.2 [facility] Sodium [Moles/Vol] 142 mmol/L 136-145 [facility] Triglyceride [Mass/Vol] 121 mg/dL <199 [facility] Comment on above: The drugs N-Acetylcy steine and Metamizole may falsely depress this assay.Serum Triglycerides Reference Interval Normal <150 mg/dL Borderline high 150 - 199 mg/dL High 200 - 499 mg/dL Very High > or = 500 mg/dL WBC (Bld) [#/Vol] 7.7 10*3/uL 4.4-11.0 [facility] Blood erythrocytes count (nu mber/volume)Ordered By: Dr. Ferrell on 09-22-2022 RBC (Bld) [#/Vol] 4.03 10*6/uL 4.6-6.2 [facility] Blood hemoglobin measurement (mass/volume)Ordered By: Dr. Ferrell on 09-22-2022 Hemoglobin (Bld) [Mass/Vol] 11.8 g/dL 13.0-16.5 [facility] Blood lymphocytes/100 leukoc ytesOrdered By: Dr. Ferrell on 09-22-2022 Lymphocytes/100 WBC (Bld) 16.1 % 19-41 [facility] Blood monocytes/100 leukocyt esOrdered By: Dr. Ferrell on 09-22-2022 Monocytes/100 WBC (Bld) 6.0 % 0-10 [facility] Blood platelet mean volumeOr dered By: Dr. Ferrell on 09-22-2022 Platelet mean volume (Bld) [Entitic vol] 9.9 fL 6.2-12.0 [facility] Determination of erythrocyte mean corpuscular volume (MCV)Ordered By: Dr. Ferrell on 09-22-2022 MCV (RBC) [Entitic vol] 91.6 fL 80-94 [facility] Hematocrit Auto (Bld) [Volum e fraction]Ordered By: Dr. Ferrell on 09-22-2022 Hematocrit (Bld) [Volume fraction] 36.9 % 40-54 [facility] Iron measurement (mass/mass) Ordered By: Dr. Ferrell on 09-22-2022 Iron (Unsp spec) [Mass/Mass] 57 ug/dL 65-175 [facility] Laboratory - Chemistry and C hemistry - challengeOrdered By: Dr. Ferrell on 09-22-2022 ALP [Catalytic activity/Vol] 111 U/L 45-117 [facility] ALT [Catalytic activity/Vol] 39 U/L 16-61 [facility] CO2 [Moles/Vol] 28.0 mmol/L 21.0-32.0 [facility] Cobalamin (Vitamin B12) [Mass/Vol] 248 pg/mL 211-911 [facility] Free T4 [Mass/Vol] 1.04 ng/dL 0.76-1.46 [facility] Globulin (S) [Mass/Vol] 3.5 g/dL 2.2-4.2 [facility] Magnesium [Mass/Vol] 1.9 mg/dL 1.6-2.6 [facility] Urea nitrogen/Creatinine [Mass ratio] 14.8 mg/mg 10-20 [facility] Laboratory - Hematology and Cell countsOrdered By: Dr. Ferrell on 09-22-2022 Erythrocyte distribution width (RBC) [Entitic vol] 47.9 fL 35.1-43.9 [facility] Erythrocyte distribution width (RBC) [Ratio] 14.3 % 11.6-14.6 [facility] Immature granulocytes/100 WBC (Bld) 0.300 % 0.0-0.9 [facility] Comment on above: IG% - Immature Granu locytes (promyelocytes, myelocytes and metamyelocytes) > 1% indicates that a LEFT SHIFT is Present. MCH (RBC) [Entitic mass] 29.3 pg 27.0-32.0 [facility] Nucleated RBC/100 WBC (Bld) [Ratio] 0 % 0-5 [facility] MCHC Auto (RBC) [Mass/Vol]Or dered By: Dr. Ferrell on 09-22-2022 MCHC (RBC) [Mass/Vol] 32.0 g/dL 32-36 [facility] No Panel InformationOrdered By: Dr. Ferrell on 09-22-2022 Estimated GFR (MDRD) Amer 76 mL/min >60 [facility] Comment on above: GFR Calc Estimated GFR (MDRD) Non-Af Amer 63 mL/min >60 [facility] Comment on above: Non- GFR Calc Thyroid Stimulating Hormone (TSH) 1.48 uIU/mL 0.358-3.74 [facility] Total Iron Binding Capacity 263 ug/dL 250-450 [facility] Vitamin D 25-Hydroxy 25.5 ng/mL [facility] Comment on above: Vitamin D 25(OH) Sta tus Range Deficiency <20 ng/mL (50nmol/L) Insufficiency 20 - 30 ng/mL (50 - 75 nmol/L) Sufficiency 30 - 100 ng/mL (75 - 250 nmol/L) Toxicity >100 ng/mL (>250 nmol/L) Platelets bldOrdered By: Dr. Ferrell on 09-22-2022 Platelets (Bld) [#/Vol] 226 10*3/uL 150-450 [facility] Serum or plasma albumin renu urement (mass/volume)Ordered By: Dr. Ferrell on 09-22-2022 Albumin [Mass/Vol] 3.6 g/dL 3.2-5.0 [facility] Serum or plasma albumin/glob ulin mass ratioOrdered By: Dr. Ferrell on 09-22-2022 Albumin/Globulin [Mass ratio] 1.0 {ratio} 0.9-2.4 [facility] Serum or plasma calcium rneu urement (mass/volume)Ordered By: Dr. Ferrell on 09-22-2022 Calcium [Mass/Vol] 8.7 mg/dL 8.5-10.1 [facility] Serum or plasma cholesterol in HDL measurement (mass/volume)Ordered By: Dr. Ferrell on 09-22-2022 Cholesterol in HDL [Mass/Vol] 51 mg/dL >40 [facility] Comment on above: The drugs N-Acetylcy steine and Metamizole may falsely depress this assay. Reference Range HDL <40 mg/dL Low HDL Cholesterol HDL >or= 60 mg/dL High HDL Cholesterol Serum or plasma cholesterol in VLDL measurement (mass/volume)Ordered By: Dr. Ferrell on 09-22-2022 Cholesterol in VLDL [Mass/Vol] 24 mg/dL 5-40 [facility] Serum or plasma creatinine m easurement (mass/volume)Ordered By: Dr. Ferrell on 09-22-2022 Creatinine [Mass/Vol] 1.22 mg/dL 0.70-1.30 [facility] Comment on above: The validity of the calculated GFR & GFRAA in patients over 70 years has not been determined. Clinical correlation is essential. Serum or plasma ferritin ellen surement (mass/volume)Ordered By: Dr. Ferrell on 09-22-2022 Ferritin [Mass/Vol] 222 ng/mL 26-388 [facility] Serum or plasma low density lipoprotein (LDL) cholesterol measurement (mass/volume)Ordered By: Dr. Ferrell on 09-22-2022 Cholesterol in LDL [Mass/Vol] 58 mg/dL 0-130 [facility] Serum or plasma urea nitroge n measurement (mass/volume)Ordered By: Dr. Ferrell on 09-22-2022 Urea nitrogen [Mass/Vol] 18 mg/dL 7-18 [facility] Thin prep Papanicolaou smear with manual screeningOrdered By: Dr. Ferrell on 09-22-2022 Thin prep Papanicolaou smear with manual screening 21 U/L 15-37 [facility] Thin prep Papanicolaou smear with manual screening 6 5-15 [facility] Whole blood hemoglobin A1c/t otal hemoglobin ratio (mass fraction)Ordered By: Dr. Ferrell on 09-22-2022 HbA1c (Bld) [Mass fraction] 5.2 % 3.8-5.6 [facility] Comment on above: Normal < 5.7 % Predi abetic 5.7 - 6.4 % Diabetic >or= 6.5 % Please note range changes. Absolute lymphocyte countOrd ered By: Dr. Cornelius on 08-21-2022 Lymphocytes Auto (Unsp spec) [#/Vol] 0.67 10*3/uL 0.83-4.51 [facility] Basophil percentageOrdered B y: Dr. Cornelius on 08-21-2022 Basophils/100 WBC (Bld) 0.1 % 0-1 [facility] Eosinophils/100 WBC (Bld) 0.0 % 0-5 [facility] Neutrophils (Bld) [#/Vol] 14.4 10*3/uL 2.0-7.7 [facility] Neutrophils/100 WBC (Bld) 90.5 % 47-70 [facility] WBC (Bld) [#/Vol] 15.9 10*3/uL 4.4-11.0 [facility] Blood erythrocytes count (nu mber/volume)Ordered By: Dr. Cornelius on 08-21-2022 RBC (Bld) [#/Vol] 4.11 10*6/uL 4.6-6.2 [facility] Blood hemoglobin measurement (mass/volume)Ordered By: Dr. Cornelius on 08-21-2022 Hemoglobin (Bld) [Mass/Vol] 12.1 g/dL 13.0-16.5 [facility] Blood lymphocytes/100 leukoc ytesOrdered By: Dr. Cornelius on 08-21-2022 Lymphocytes/100 WBC (Bld) 4.2 % 19-41 [facility] Blood monocytes/100 leukocyt esOrdered By: Dr. Cornelius on 08-21-2022 Monocytes/100 WBC (Bld) 4.8 % 0-10 [facility] Blood platelet mean volumeOr dered By: Dr. Cornelius on 08-21-2022 Platelet mean volume (Bld) [Entitic vol] 10.1 fL 6.2-12.0 [facility] Determination of erythrocyte mean corpuscular volume (MCV)Ordered By: Dr. Cornelius on 08-21-2022 MCV (RBC) [Entitic vol] 92.2 fL 80-94 [facility] Hematocrit Auto (Bld) [Volum e fraction]Ordered By: Dr. Cornelius on 08-21-2022 Hematocrit (Bld) [Volume fraction] 37.9 % 40-54 [facility] Laboratory - Hematology and Cell countsOrdered By: Dr. Cornelius on 08-21-2022 Erythrocyte distribution width (RBC) [Entitic vol] 47.8 fL 35.1-43.9 [facility] Erythrocyte distribution width (RBC) [Ratio] 14.1 % 11.6-14.6 [facility] Immature granulocytes/100 WBC (Bld) 0.400 % 0.0-0.9 [facility] Comment on above: IG% - Immature Granu locytes (promyelocytes, myelocytes and metamyelocytes) > 1% indicates that a LEFT SHIFT is Present. MCH (RBC) [Entitic mass] 29.4 pg 27.0-32.0 [facility] Nucleated RBC/100 WBC (Bld) [Ratio] 0 % 0-5 [facility] MCHC Auto (RBC) [Mass/Vol]Or dered By: Dr. Cornelius on 08-21-2022 MCHC (RBC) [Mass/Vol] 31.9 g/dL 32-36 [facility] Platelets bldOrdered By: Dr. Cornelius on 08-21-2022 Platelets (Bld) [#/Vol] 252 10*3/uL 150-450 [facility] Basophil percentageOrdered B y: Dr. Hayes on 08-12-2022 Bilirubin [Mass/Vol] 1.10 mg/dL 0.20-1.00 [facility] Comment on above: For patients on eltr ombopag therapy, use of Dimension [place] TBIL is not recommended. Chloride [Moles/Vol] 109 mmol/L 98-107 [facility] Glucose [Mass/Vol] 106 mg/dL 74-106 [facility] Comment on above: Fasting Glucose resu lt from 100 to 125 mg/dL suggests IMPAIRED HOMEOSTASIS per A.D.A. criteria. Potassium [Moles/Vol] 3.8 mmol/L 3.5-5.1 [facility] Protein [Mass/Vol] 7.4 g/dL 6.4-8.2 [facility] Sodium [Moles/Vol] 143 mmol/L 136-145 [facility] Direct bilirubinOrdered By: Dr. Hayes on 08-12-2022 Bilirubin.direct [Mass/Vol] 0.24 mg/dL 0.00-0.30 [facility] INR in Blood by Coagulation assayOrdered By: Dr. Hayes on 08-12-2022 INR Coag (Bld) [Relative time] 1.1 {INR} [facility] Laboratory - Chemistry and C hemistry - challengeOrdered By: Dr. Hayes on 08-12-2022 ALP [Catalytic activity/Vol] 115 U/L 45-117 [facility] ALT [Catalytic activity/Vol] 42 U/L 16-61 [facility] CO2 [Moles/Vol] 28.0 mmol/L 21.0-32.0 [facility] Globulin (S) [Mass/Vol] 3.6 g/dL 2.2-4.2 [facility] Urea nitrogen/Creatinine [Mass ratio] 16.0 mg/mg 10-20 [facility] Laboratory - CoagulationOrde red By: Dr. Hayes on 08-12-2022 aPTT Coag (Bld) [Time] 30.4 s 24.1-36.2 [facility] PT Coag (PPP) [Time] 13.8 s 11.7-14.9 [facility] No Panel InformationOrdered By: Dr. Hayes on 08-12-2022 Estimated GFR (MDRD) Amer 79 mL/min >60 [facility] Comment on above: GFR Calc Estimated GFR (MDRD) Non-Af Amer 65 mL/min >60 [facility] Comment on above: Non- GFR Calc Serum or plasma albumin renu urement (mass/volume)Ordered By: Dr. Hayes on 08-12-2022 Albumin [Mass/Vol] 3.8 g/dL 3.2-5.0 [facility] Serum or plasma calcium renu urement (mass/volume)Ordered By: Dr. Hayes on 08-12-2022 Calcium [Mass/Vol] 8.9 mg/dL 8.5-10.1 [facility] Serum or plasma creatinine m easurement (mass/volume)Ordered By: Dr. Hayes on 08-12-2022 Creatinine [Mass/Vol] 1.19 mg/dL 0.70-1.30 [facility] Comment on above: The validity of the calculated GFR & GFRAA in patients over 70 years has not been determined. Clinical correlation is essential. Serum or plasma urea nitroge n measurement (mass/volume)Ordered By: Dr. Hayes on 08-12-2022 Urea nitrogen [Mass/Vol] 19 mg/dL 7-18 [facility] Thin prep Papanicolaou smear with manual screeningOrdered By: Dr. Hayes on 08-12-2022 Thin prep Papanicolaou smear with manual screening 19 U/L 15-37 [facility] Thin prep Papanicolaou smear with manual screening 6 5-15 [facility] Absolute lymphocyte counton 04-01-2022 Lymphocytes Auto (Unsp spec) [#/Vol] 1.24 10*3/uL 0.83-4.51 [facility] Work Phone: Basophil percentageon 2021 Basophils/100 WBC (Bld) 0.3 % 0-1 [facility] Work Phone: Bilirubin [Mass/Vol] 1.50 mg/dL 0.20-1.00 [facility] Work Phone: Comment on above: For patients on eltr ombopag therapy, use of Dimension [place]a TBIL is not recommended. Chloride [Moles/Vol] 110 mmol/L 98-107 [facility] Work Phone: Eosinophils/100 WBC (Bld) 1.0 % 0-5 [facility] Work Phone: Glucose [Mass/Vol] 103 mg/dL 74-106 [facility] Work Phone: Comment on above: Fasting Glucose resu lt from 100 to 125 mg/dL suggests IMPAIRED HOMEOSTASIS per A.D.A. criteria. Neutrophils (Bld) [#/Vol] 6.8 10*3/uL 2.0-7.7 [facility] Work Phone: Neutrophils/100 WBC (Bld) 78.0 % 47-70 [facility] Work Phone: Potassium [Moles/Vol] 4.0 mmol/L 3.5-5.1 [facility] Work Phone: Protein [Mass/Vol] 7.3 g/dL 6.4-8.2 [facility] Work Phone: Sodium [Moles/Vol] 143 mmol/L 136-145 [facility] Work Phone: WBC (Bld) [#/Vol] 8.7 10*3/uL 4.4-11.0 [facility] Work Phone: Blood erythrocytes count (nu mber/volume)on 04-01-2022 RBC (Bld) [#/Vol] 4.28 10*6/uL 4.6-6.2 [facility] Work Phone: Blood hemoglobin measurement (mass/volume)on 04-01-2022 Hemoglobin (Bld) [Mass/Vol] 12.9 g/dL 13.0-16.5 [facility] Work Phone: Blood lymphocytes/100 leukoc yteson 04-01-2022 Lymphocytes/100 WBC (Bld) 14.3 % 19-41 [facility] Work Phone: Blood monocytes/100 leukocyt eson 04-01-2022 Monocytes/100 WBC (Bld) 6.2 % 0-10 [facility] Work Phone: Blood platelet mean volumeon 04-01-2022 Platelet mean volume (Bld) [Entitic vol] 9.8 fL 6.2-12.0 [facility] Work Phone: Determination of erythrocyte mean corpuscular volume (MCV)on 04-01-2022 MCV (RBC) [Entitic vol] 89.7 fL 80-94 [facility] Work Phone: Direct bilirubinon 2 Bilirubin.direct [Mass/Vol] 0.32 mg/dL 0.00-0.30 [facility] Work Phone: Hematocrit Auto (Bld) [Volum e fraction]on 04-01-2022 Hematocrit (Bld) [Volume fraction] 38.4 % 40-54 [facility] Work Phone: Iron measurement (mass/mass) on 04-01-2022 Iron (Unsp spec) [Mass/Mass] 55 ug/dL 65-175 [facility] Work Phone: Laboratory - Chemistry and C hemistry - challengeon 04-01-2022 ALP [Catalytic activity/Vol] 99 U/L 45-117 [facility] Work Phone: ALT [Catalytic activity/Vol] 24 U/L 16-61 [facility] Work Phone: CO2 [Moles/Vol] 30.0 mmol/L 21.0-32.0 [facility] Work Phone: Globulin (S) [Mass/Vol] 3.6 g/dL 2.2-4.2 [facility] Work Phone: Urea nitrogen/Creatinine [Mass ratio] 17.0 mg/mg 10-20 [facility] Work Phone: Laboratory - Hematology and Cell countson 04-01-2022 Erythrocyte distribution width (RBC) [Entitic vol] 46.5 fL 35.1-43.9 [facility] Work Phone: Erythrocyte distribution width (RBC) [Ratio] 14.2 % 11.6-14.6 [facility] Work Phone: Immature granulocytes/100 WBC (Bld) 0.200 % 0.0-0.9 [facility] Work Phone: Comment on above: IG% - Immature Granu locytes (promyelocytes, myelocytes and metamyelocytes) > 1% indicates that a LEFT SHIFT is Present. MCH (RBC) [Entitic mass] 30.1 pg 27.0-32.0 [facility] Work Phone: Nucleated RBC/100 WBC (Bld) [Ratio] 0 % 0-5 [facility] Work Phone: MCHC Auto (RBC) [Mass/Vol]on 04-01-2022 MCHC (RBC) [Mass/Vol] 33.6 g/dL 32-36 [facility] Work Phone: No Panel Informationon 04-01 Endomysial IgA Antibody Negative Negative [facility] Work Phone: Estimated GFR (MDRD) Amer 68 mL/min >60 [facility] Work Phone: Comment on above: GFR Calc Estimated GFR (MDRD) Non-Af Amer 56 mL/min >60 [facility] Work Phone: Comment on above: Non- GFR Calc Total Iron Binding Capacity 345 ug/dL 250-450 [facility] Work Phone: Platelets bldon 04-01-2022 Platelets (Bld) [#/Vol] 243 10*3/uL 150-450 [facility] Work Phone: Serum IgA measurement (units /volume)on 04-01-2022 IgA Qn (S) 325 mg/dL 61-437 [facility] Work Phone: Comment on above: Performed at: [address] [id number] Director: Terrance Ashford PhD, Phone: [phone] Serum or plasma albumin renu urement (mass/volume)on 04-01-2022 Albumin [Mass/Vol] 3.7 g/dL 3.2-5.0 [facility] Work Phone: Serum or plasma albumin/glob ulin mass ratioon 04-01-2022 Albumin/Globulin [Mass ratio] 1.0 {ratio} 0.9-2.4 [facility] Work Phone: Serum or plasma calcium renu urement (mass/volume)on 04-01-2022 Calcium [Mass/Vol] 9.0 mg/dL 8.5-10.1 [facility] Work Phone: Serum or plasma creatinine m easurement (mass/volume)on 04-01-2022 Creatinine [Mass/Vol] 1.35 mg/dL 0.70-1.30 [facility] Work Phone: Comment on above: The validity of the calculated GFR & GFRAA in patients over 70 years has not been determined. Clinical correlation is essential. Serum or plasma ferritin ellen surement (mass/volume)on 04-01-2022 Ferritin [Mass/Vol] 260 ng/mL 26-388 [facility] Work Phone: Serum or plasma iron saturat ion measurement (mass fraction)on 04-01-2022 Iron saturation [Mass fraction] 15.9 % 15.0-55.0 [facility] Work Phone: Serum or plasma urea nitroge n measurement (mass/volume)on 04-01-2022 Urea nitrogen [Mass/Vol] 23 mg/dL 7-18 [facility] Work Phone: Serum tissue transglutaminas e IgA antibody assay (units/volume)on 04-01-2022 tTG IgA Qn (S) <2 U/mL 0-3 [facility] Work Phone: Comment on above: Negative 0 - 3 Weak Positive 4 - 10 Positive >10 Tissue Transglutaminase (tTG) has been identified as the endomysial antigen. Studies have demonstr- ated that endomysial IgA antibodies have over 99% specificity for gluten sensitive enteropathy. Thin prep Papanicolaou smear with manual screeningon 04-01-2022 Thin prep Papanicolaou smear with manual screening 12 U/L 15-37 [facility] Work Phone: Thin prep Papanicolaou smear with manual screening 3 5-15 [facility] Work Phone: Full PFT Study With Bronchod ilatoron 12-30-2021 Name: SHANNON OLSON PatientID: [id number] Gender: Male Birthdate: 1955 Study Date: 12/30/2021 8:51:41 AM Age: 66 Race: White or Height: 74.0 in, 188.0 cm Weight: 290.0 lbs, 131.8 kg Smoke Status: Never Pack Years: Tbco Prod: Cigarettes Ordering Physician: [id number] Interpreting Physician: [id number] 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: NAM Testing Location: [facility] Diagnosis: COPD W/ ASTHMA; HX COVID 2020 Spirometry Units Pred PreDrug Pre%Pred Post Post%Pred %Change FVC L,btps 5.26 3.61 69. 3.66 70. 1. FEV1 L,btps 3.93 2.68 68. 2.93 75. 9. FEV1/FVC (%) % 74. 74. 100. 80. 108. 8. TTO68-76% L/s 3.06 2.02 66. 2.94 96. 45. FEFmax L/s 9.66 6.65 69. 4.82 50. -28. MVV in,btps 132.34 85.57 65. Lung Volumes (Body Box) Units Pred PreDrug Pre%Pred TLC L,btps 7.95 VC L,btps 5.26 IC L,btps 4.05 FRC L,btps 3.90 ERV L,btps 1.22 RV L,btps 2.68 RV/TLC (%) % 34. VTG L,btps RAW H2O/L/s 1.13 SGaw cmH2O/L 0.23 Diffusion (DLCO) Units Pred PreDrug Pre%Pred DLCO ml/min/mmHg,stpd 33.11 25.92 78. DLCOHb ml/min/mmHg,stpd 33.11 25.92 78. VAsb L,btps 7.76 5.14 66. D/VAsb ml/min/mmHg/L,stpd 4.27 5.04 118. D/VAsbHb ml/min/mmHg/L,stpd 4.27 5.04 118. VInsp L 3.56 Hgb g/dl 14.60 COHb % Nitrogen Washout Units Pred PreDrug Pre%Pred TLC L,btps 7.95 6.28 79. VC L,btps 5.26 3.30 63. FRC L,btps 3.90 3.26 83. IC L,btps 4.05 3.02 75. ERV L,btps 1.22 0.27 23. RV L,btps 2.68 2.98 111. RV/TLC (%) % 34. 47. 141. Lung Mechanics Units Pred PreDrug Pre%Pred PImax /MIP cmH2O -74.02 PEmax /MEP cmH2O 119.94 SENIOR TEST ANALYST NOTES Tests to perform: [id number] - FULL PFT STUDY WITH BRONCHODILATOR. HOME MEDS: NO CURRENT BD. AMIODARONE. RETESTED AFTER 4 PUFFS ALBUTEROL. SPACER AND INSTRUCTIONS GIVEN. 59989- PRE/[place] [address]- DLCO 17683- FRC GAS PHYSICIAN INTERPRETATION No obstruction No BD response Borderline restriction Air trapping by elevated RV/TLC ratio Mildly reduced diffusion [facility] Dwayne Wen MD - 12/30/2021 Name: SHANNON OLSON PatientID: [id number] Gender: Male Birthdate: 1955 Study Date: 12/30/2021 8:51:41 AM Age: 66 Race: White or Height: 74.0 in, 188.0 cm Weight: 290.0 lbs, 131.8 kg Smoke Status: Never Pack Years: Tbco Prod: Cigarettes Ordering Physician: [id number] Interpreting Physician: [id number] 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: NAM Testing Location: [facility] Diagnosis: COPD W/ ASTHMA; HX COVID 2020 Spirometry Units Pred PreDrug Pre%Pred Post Post%Pred %Change FVC L,btps 5.26 3.61 69. 3.66 70. 1. FEV1 L,btps 3.93 2.68 68. 2.93 75. 9. FEV1/FVC (%) % 74. 74. 100. 80. 108. 8. [id number]% L/s 3.06 2.02 66. 2.94 96. 45. FEFmax L/s 9.66 6.65 69. 4.82 50. -28. MVV in,btps 132.34 85.57 65. Lung Volumes (Body Box) Units Pred PreDrug Pre%Pred TLC L,btps 7.95 VC L,btps 5.26 IC L,btps 4.05 FRC L,btps 3.90 ERV L,btps 1.22 RV L,btps 2.68 RV/TLC (%) % 34. VTG L,btps RAW H2O/L/s 1.13 SGaw cmH2O/L 0.23 Diffusion (DLCO) Units Pred PreDrug Pre%Pred DLCO ml/min/mmHg,stpd 33.11 25.92 78. DLCOHb ml/min/mmHg,stpd 33.11 25.92 78. VAsb L,btps 7.76 5.14 66. D/VAsb ml/min/mmHg/L,stpd 4.27 5.04 118. D/VAsbHb ml/min/mmHg/L,stpd 4.27 5.04 118. VInsp L 3.56 Hgb g/dl 14.60 COHb % Nitrogen Washout Units Pred PreDrug Pre%Pred TLC L,btps 7.95 6.28 79. VC L,btps 5.26 3.30 63. FRC L,btps 3.90 3.26 83. IC L,btps 4.05 3.02 75. ERV L,btps 1.22 0.27 23. RV L,btps 2.68 2.98 111. RV/TLC (%) % 34. 47. 141. Lung Mechanics Units Pred PreDrug Pre%Pred PImax /MIP cmH2O -74.02 PEmax /MEP cmH2O 119.94 SENIOR TEST ANALYST NOTES Tests to perform: 1995491 - FULL PFT STUDY WITH BRONCHODILATOR. HOME MEDS: NO CURRENT BD. AMIODARONE. RETESTED AFTER 4 PUFFS ALBUTEROL. SPACER AND INSTRUCTIONS GIVEN. 34874- PRE/[place] [address]- DLCO 84047- FRC GAS PHYSICIAN INTERPRETATION No obstruction No BD response Borderline restriction Air trapping by elevated RV/TLC ratio Mildly reduced diffusion [facility] Work Phone: Full PFT Study With Bronchod ilatorOrdered By: Dwayne Juárez on 12-30-2021 [facility] Work Phone: ACT,Whole Bloodon 12-02-2021 ACT,Whole Blood 163 s High 90-134 [facility] Comment on above: Result Comment: ACTB O Performed by [employer] [employer] ID: [id number] [place], [place] ACT testing is not intended for patients taking aprotonin, patients with hematocrits of <20% or >55%, patients using other types of anticoagulation medications, and patients with Lupus Anticoagulant. Performed By: #### A CTBO #### [address] [address] Basic Metabolic Panelon 11-21 Anion gap [Moles/Vol] 12 mmol/L Normal 3-13 [facility] Comment on above: Performed By: #### B MP3, HEMOG #### [facility] [address] [place] [address] Calcium [Mass/Vol] 9.0 mg/dL Normal 8.4-10.4 [facility] Comment on above: Performed By: #### B MP3, HEMOG #### [facility] [address] [place] [address] CO2 [Moles/Vol] 24 mmol/L Normal 22-30 [facility] Comment on above: Performed By: #### B MP3, HEMOG #### [facility] [address] [place] [address] Glucose [Mass/Vol] 122 mg/dL High 70-100 [facility] Comment on above: Performed By: #### B MP3, HEMOG #### [facility] [address] [place] [address] Urea nitrogen [Mass/Vol] 30 mg/dL High 7-17 [facility] Comment on above: Performed By: #### B MP3, HEMOG #### [facility] [address] [place] [address] Creatinine [Mass/Vol] 1.24 mg/dL Normal 0.52-1.25 [facility] Comment on above: Performed By: #### B MP3, HEMOG #### [facility] [address] [place] [address] GFR/1.73 sq M.predicted among blacks MDRD (S/P/Bld) [Vol rate/Area] 69.7 mL/min/{1.73_m2} Normal >60 [facility] Comment on above: Performed By: #### B MP3, HEMOG #### [facility] [address] [place] [address] GFR/1.73 sq M.predicted among non-blacks MDRD (S/P/Bld) [Vol rate/Area] 60.2 mL/min/{1.73_m2} Normal >60 [facility] Comment on above: Result Comment: KDIG O guidelines provide the following GFR categories: Stage GFR(ml/min/1.73 m2) Terms G1 >=90 Normal or high G2 60-89 Mildly decreased* G3a 45-59 Mildly to moderately decreased G3b 30-44 Moderately to severely decreased G4 15-29 Severely decreased G5 <15 Kidney failure *Relative to young adult level. In the absence of evidence of kidney damage, neither GFR category G1 nor G2 fulfill the criteria for CKD. The CKD-EPI equation is validated in individuals 18 years of age and older. Currently the best equation for estimating glomerular filtration rate (GFR) from serum creatinine in children is the Bedside Hernandez equation. It is less accurate in patients with extremes of muscle mass, restriction of dietary protein, ingestion of creatine, extra-renal metabolism of creatinine, or treatment with medications that affect renal tubular creatinine secretion. Performed By: #### B MP3, HEMOG #### [address] Potassium [Moles/Vol] 4.1 mmol/L Normal 3.5-5.1 [facility] Comment on above: Performed By: #### B MP3, HEMOG #### [address] Sodium [Moles/Vol] 143 mmol/L Normal 135-145 [facility] Comment on above: Performed By: #### B MP3, HEMOG #### [address] Chloride [Moles/Vol] 107 mmol/L Normal 98-107 [facility] Comment on above: Performed By: #### B MP3, HEMOG #### [address] Anion gap [Moles/Vol] 12 mmol/L 3 - 13 mmol/L [facility] Calcium [Mass/Vol] 9.0 mg/dL 8.4 - 10. 4 mg/dL [facility] Chloride [Moles/Vol] 107 mmol/L 98 - 10 7 mmol/L [facility] CO2 [Moles/Vol] 24 mmol/L 22 - 30 mmol/L [facility] Creatinine [Mass/Vol] 1.24 mg/dL 0.52 - 1.25 mg/dL [facility] EGFR IF NonAfrican Guinean 60.2 mL/min >60 [facility] Comment on above: KDIGO guidelines pro vide the following GFR categories: Stage GFR(ml/min/1.73 m2) Terms G1 >=90 Normal or high G2 60-89 Mildly decreased* G3a 45-59 Mildly to moderately decreased G3b 30-44 Moderately to severely decreased G4 15-29 Severely decreased G5 <15 Kidney failure *Relative to young adult level. In the absence of evidence of kidney damage, neither GFR category G1 nor G2 fulfill the criteria for CKD. The CKD-EPI equation is validated in individuals 18 years of age and older. Currently the best equation for estimating glomerular filtration rate (GFR) from serum creatinine in children is the Bedside Hernandez equation. It is less accurate in patients with extremes of muscle mass, restriction of dietary protein, ingestion of creatine, extra-renal metabolism of creatinine, or treatment with medications that affect renal tubular creatinine secretion. GFR/1.73 sq M.predicted among blacks MDRD (S/P/Bld) [Vol rate/Area] 69.7 mL/min/{1.73_m2} >60 [facility] Glucose [Mass/Vol] 122 mg/dL High 70 - 100 mg/dL [facility] Interpretation and review of laboratory results Abnormal [facility] Potassium [Moles/Vol] 4.1 mmol/L 3.5 - 5.1 mmol/L [facility] Sodium [Moles/Vol] 143 mmol/L 135 - 145 mmol/L [facility] Urea nitrogen (BldV) [Mass/Vol] 30 mg/dL High 7 - 17 mg/dL [facility] Test Performed by [id number] [place] [address] LAB [facility] CARDIAC CATH NURSING LOGon 0 12-01-2021 Ordered by an unspec ified provider. [facility] CBCon 12-01-2021 Hematocrit (Bld) [Volume fraction] 39.8 % Low 40.0 - 52.0 % [facility] Hemoglobin (Bld) [Mass/Vol] 13.1 g/dL 13.0 - 18.0 g/dL [facility] Interpretation and review of laboratory results Abnormal [facility] MCH (RBC) [Entitic mass] 29.7 pg 26.0 - 34.0 pg [facility] MCHC (RBC) [Mass/Vol] 32.9 % 32.0 - 36.0 % [facility] MCV (RBC) [Entitic vol] 90.3 fL 80.0 - 98.0 fL [facility] Platelet distribution width (Bld) [Ratio] 14.5 % 11.5 - 14.5 % [facility] Platelet mean volume (Bld) [Entitic vol] 7.5 fL 7.4 - 12.4 fL [facility] Comment on above: MPV is a calculated measurement using platelet volume ratio. Platelets (Bld) [#/Vol] 251 10*3/uL 140 - 440 10*3/uL [facility] RBC (Bld) [#/Vol] 4.41 10*6/uL 4.40 - 5.90 10*6/uL [facility] WBC (Bld) [#/Vol] 6.8 10*3/uL 3.6 - 10.7 10*3/uL [facility] Test Performed by [id number] [place] [address] LAB [facility] EKG 12 leadon 12-01-2021 [facility] Test Date: 2021-12-01 Pat Name: SHANNON OLSON Department: [facility] Room: [id number] Gender: M 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: RAFA REYESB: 1955 Requested By: ZOIE GONZALES Order Number: [id number] Reading MD: Edward Louie Measurements Intervals [place] Rate: 53 P: 29 SD: 205 QRS: -12 QRSD: 151 T: 129 QT: 497 QTc: 466 Interpretive Statements Sinus bradycardia LEFT BUNDLE BRANCH BLOCK consider prior anterior infarction Electronically Signed On 12-01-2021 15:28:43 EDT by Edward Louie [facility] Edward Hawkins MD - 12/01/2021 [facility] Test Date: 2021-12-01 Pat Name: SHANNON OLSON Department: [facility] Room: [id number] Gender: M 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: RAFA : 1955 Requested By: ZOIE GONZALES Order Number: [id number] Reading DEVIKA Louie Measurements Intervals [place] Rate: 53 P: 29 SD: 205 QRS: -12 QRSD: 151 T: 129 QT: 497 QTc: 466 Interpretive Statements Sinus bradycardia LEFT BUNDLE BRANCH BLOCK consider prior anterior infarction Electronically Signed On 12-01-2021 15:28:43 EDT by Edward Louie [facility] Work Phone: [facility] Work Phone: Electrocardiogram, 12-leadon 12-01-2021 [facility] Test Date: 2021-12-01 Pat Name: SHANNON OLSON Department: [facility] Room: [id number] Gender: M 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: RAFA : 1955 Requested By: MILAGRO JAIMES Order Number: [id number] Reading MD: Edward Louie Measurements Intervals [place] Rate: 50 P: 16 SD: 182 QRS: 14 QRSD: 151 T: 148 QT: 508 QTc: 465 Interpretive Statements Sinus bradycardia Left bundle branch block Consider anterolateral infarct Electronically Signed On 12-01-2021 15:14:17 EDT by Edward Louie [facility] Edward Hawkins MD - 12/01/2021 [facility] [employer] [facility] Test Date: 2021-12-01 Pat Name: SHANNON OLSON Department: [facility] Room: [facility] Gender: M 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: RAFA : 1955 Requested By: MILAGRO JAIMES Order Number: [id number] Reading MD: Edward Louie Measurements Intervals [place] Rate: 50 P: 16 SD: 182 QRS: 14 QRSD: 151 T: 148 QT: 508 QTc: 465 Interpretive Statements Sinus bradycardia Left bundle branch block Consider anterolateral infarct Electronically Signed On 12-01-2021 15:14:17 EDT by Edward Louie [facility] Work Phone: Electrocardiogram, 12-leadOr dered By: Edward Louie on 12-01-2021 [facility] Work Phone: Hemogramon 12-01-2021 Erythrocyte distribution width (RBC) [Ratio] 14.5 % Normal 11.5-14.5 [facility] Comment on above: Performed By: #### B MP3, HEMOG #### [facility] [employer] [address] [place], [place] Hematocrit (Bld) [Volume fraction] 39.8 % Low 40.0-52.0 [facility] Comment on above: Performed By: #### B MP3, HEMOG #### [facility] [employer] [address] [place], [place] Hemoglobin (Bld) [Mass/Vol] 13.1 g/dL Normal 13.0-18.0 [facility] Comment on above: Performed By: #### B MP3, HEMOG #### [facility] [employer] [facility] [address] [place], [place] MCH (RBC) [Entitic mass] 29.7 pg Normal 26.0-34.0 [facility] Comment on above: Performed By: #### B MP3, HEMOG #### [facility] [address], [place] MCHC 32.9 % Normal 32.0-36.0 [facility] Comment on above: Performed By: #### B MP3, HEMOG #### [facility] [address], [place] MCV (RBC) [Entitic vol] 90.3 fL Normal 80.0-98.0 [facility] Comment on above: Performed By: #### B MP3, HEMOG #### [facility] [address], [place] Platelet mean volume (Bld) [Entitic vol] 7.5 fL Normal 7.4-12.4 [facility] Comment on above: Result Comment: MPV is a calculated measurement using platelet volume ratio. Performed By: #### B MP3, HEMOG #### [place] [address] [place], [place] Platelets (Bld) [#/Vol] 251 10*3/uL Normal 140-440 [facility] Comment on above: Performed By: #### B MP3, HEMOG #### [facility] [address] [place], [place] RBC (Bld) [#/Vol] 4.41 10*6/uL Normal 4.40-5.90 [facility] Comment on above: Performed By: #### B MP3, HEMOG #### [facility] [address] [place], [place] WBC (Bld) [#/Vol] 6.8 10*3/uL Normal 3.6-10.7 [facility] Comment on above: Performed By: #### B MP3, HEMOG #### [facility] [address], [place] Basophil percentageon 2021 Bilirubin [Mass/Vol] 1.30 mg/dL 0.20-1.00 [facility] Work Phone: Comment on above: For patients on eltr ombopag therapy, use of Dimension Mora TBIL is not recommended. Chloride [Moles/Vol] 110 mmol/L 98-107 [facility] Work Phone: Glucose [Mass/Vol] 107 mg/dL 74-106 [facility] Work Phone: Comment on above: Fasting Glucose resu lt from 100 to 125 mg/dL suggests IMPAIRED HOMEOSTASIS per A.D.A. criteria. Potassium [Moles/Vol] 4.0 mmol/L 3.5-5.1 [facility] Work Phone: Protein [Mass/Vol] 7.3 g/dL 6.4-8.2 [facility] Work Phone: Sodium [Moles/Vol] 139 mmol/L 136-145 [facility] Work [facility]: WBC (Bld) [#/Vol] 7.8 10*3/uL 4.4-11.0 [facility] Work Phone: Blood erythrocytes count (nu mber/volume)on 10-31-2021 RBC (Bld) [#/Vol] 4.25 10*6/uL 4.6-6.2 [facility] Work Phone: Blood hemoglobin measurement (mass/volume)on 10-31-2021 Hemoglobin (Bld) [Mass/Vol] 12.7 g/dL 13.0-16.5 [facility] Work Phone: Blood platelet mean volumeon 10-31-2021 Platelet mean volume (Bld) [Entitic vol] 9.8 fL 6.2-12.0 [facility] Work Phone: Determination of erythrocyte mean corpuscular volume (MCV)on 10-31-2021 MCV (RBC) [Entitic vol] 91.3 fL 80-94 [facility] Work Phone: Hematocrit Auto (Bld) [Volum e fraction]on 10-31-2021 Hematocrit (Bld) [Volume fraction] 38.8 % 40-54 [facility] Work Phone: Laboratory - Chemistry and C hemistry - challengeon 10-31-2021 ALP [Catalytic activity/Vol] 100 U/L 45-117 [facility] Work Phone: ALT [Catalytic activity/Vol] 43 U/L 16-61 [facility] Work Phone: CO2 [Moles/Vol] 26.0 mmol/L 21.0-32.0 [facility] Work Phone: Globulin (S) [Mass/Vol] 3.7 g/dL 2.2-4.2 [facility] Work Phone: Urea nitrogen/Creatinine [Mass ratio] 15.9 mg/mg 10-20 [facility] Work Phone: Laboratory - Hematology and Cell countson 10-31-2021 Erythrocyte distribution width (RBC) [Entitic vol] 46.2 fL 35.1-43.9 [facility] Work Phone: Erythrocyte distribution width (RBC) [Ratio] 13.8 % 11.6-14.6 [facility] Work Phone: MCH (RBC) [Entitic mass] 29.9 pg 27.0-32.0 [facility] Work Phone: MCHC Auto (RBC) [Mass/Vol]on 10-31-2021 MCHC (RBC) [Mass/Vol] 32.7 g/dL 32-36 [facility] Work Phone: No Panel Informationon 10-31 Estimated GFR (MDRD) Amer 89 mL/min >60 [facility] Work Phone: Comment on above: GFR Calc Estimated GFR (MDRD) Non-Af Amer 74 mL/min >60 [facility] Work Phone: Comment on above: Non- GFR Calc Thyroid Stimulating Hormone (TSH) 1.21 uIU/mL 0.358-3.74 [facility] Work Phone: Platelets bldon 10-31-2021 Platelets (Bld) [#/Vol] 233 10*3/uL 150-450 [facility] Work Phone: Serum or plasma albumin renu urement (mass/volume)on 10-31-2021 Albumin [Mass/Vol] 3.6 g/dL 3.2-5.0 [facility] Work Phone: Serum or plasma albumin/glob ulin mass ratioon 10-31-2021 Albumin/Globulin [Mass ratio] 1.0 {ratio} 0.9-2.4 [facility] Work Phone: Serum or plasma calcium renu urement (mass/volume)on 10-31-2021 Calcium [Mass/Vol] 8.5 mg/dL 8.5-10.1 [facility] Work Phone: Serum or plasma creatinine m easurement (mass/volume)on 10-31-2021 Creatinine [Mass/Vol] 1.07 mg/dL 0.70-1.30 [facility] Work Phone: Comment on above: The validity of the calculated GFR & GFRAA in patients over 70 years has not been determined. Clinical correlation is essential. Serum or plasma urea nitroge n measurement (mass/volume)on 10-31-2021 Urea nitrogen [Mass/Vol] 17 mg/dL 7-18 [facility] Work Phone: Thin prep Papanicolaou smear with manual screeningon 10-31-2021 Thin prep Papanicolaou smear with manual screening 19 U/L 15-37 [facility] Work Phone: Thin prep Papanicolaou smear with manual screening 3 5-15 [facility] Work Phone: No Panel Informationon 09-10 Troponin I High Sensitivity 294 pg/mL 3.0-78.0 [facility] Work Phone: Comment on above: Critical Result(s) C alled at: 01:34:51 09/10/2021 by: MANUEL Larios [employer]EE [employer]BER. Results read back by same. Please Note: New Test Units and Gender Specific Reference Ranges. For more information see Policy Stat Procedure Mora High Sensitivity Troponin (TNIH) and attachments. Absolute lymphocyte counton 09-09-2021 Lymphocytes Auto (Unsp spec) [#/Vol] 2.24 10*3/uL 0.83-4.51 [facility] Work Phone: Basophil percentageon 2021 Basophils/100 WBC (Bld) 0.5 % 0-1 [facility] Work Phone: Chloride [Moles/Vol] 108 mmol/L 98-107 [facility] Work Phone: Eosinophils/100 WBC (Bld) 0.8 % 0-5 [facility] Work Phone: Glucose [Mass/Vol] 151 mg/dL 74-106 [facility] Work Phone: Comment on above: Fasting Glucose resu lt greater than or equal to 126 mg/dL suggests DIABETES MELLITUS per A.D.A. criteria. Neutrophils (Bld) [#/Vol] 6.5 10*3/uL 2.0-7.7 [facility] Work Phone: Neutrophils/100 WBC (Bld) 67.9 % 47-70 [facility] Work Phone: Potassium [Moles/Vol] 3.9 mmol/L 3.5-5.1 [facility] Work Phone: Sodium [Moles/Vol] 142 mmol/L 136-145 [facility] Work Phone: WBC (Bld) [#/Vol] 9.5 10*3/uL 4.4-11.0 [facility] Work Phone: Blood erythrocytes count (nu mber/volume)on 09-09-2021 RBC (Bld) [#/Vol] 4.43 10*6/uL 4.6-6.2 [facility] Work Phone: Blood hemoglobin measurement (mass/volume)on 09-09-2021 Hemoglobin (Bld) [Mass/Vol] 13.3 g/dL 13.0-16.5 [facility] Work Phone: Blood lymphocytes/100 leukoc yteson 09-09-2021 Lymphocytes/100 WBC (Bld) 23.5 % 19-41 [facility] Work Phone: Blood monocytes/100 leukocyt eson 09-09-2021 Monocytes/100 WBC (Bld) 6.9 % 0-10 [facility] Work Phone: Blood platelet mean volumeon 09-09-2021 Platelet mean volume (Bld) [Entitic vol] 9.9 fL 6.2-12.0 [facility] Work Phone: Determination of erythrocyte mean corpuscular volume (MCV)on 09-09-2021 MCV (RBC) [Entitic vol] 91.0 fL 80-94 [facility] Work Phone: Glucose Glucometer (BldC) [M ass/Vol]on 09-09-2021 Glucose [Mass/Vol] 149 mg/dL 74-106 [facility] Work Phone: Comment on above: MANAGEMENT OF PATIEN T CARE PER NURSING PROTOCOL Hematocrit Auto (Bld) [Volum e fraction]on 09-09-2021 Hematocrit (Bld) [Volume fraction] 40.3 % 40-54 [facility] Work Phone: Laboratory - Chemistry and C hemistry - challengeon 09-09-2021 CO2 [Moles/Vol] 31.0 mmol/L 21.0-32.0 [facility] Work Phone: Urea nitrogen/Creatinine [Mass ratio] 18.5 mg/mg 10-20 [facility] Work Phone: Laboratory - Hematology and Cell countson 09-09-2021 Erythrocyte distribution width (RBC) [Entitic vol] 43.8 fL 35.1-43.9 [facility] Work Phone: Erythrocyte distribution width (RBC) [Ratio] 13.2 % 11.6-14.6 [facility] Work Phone: Immature granulocytes/100 WBC (Bld) 0.400 % 0.0-0.9 [facility] Work Phone: Comment on above: IG% - Immature Granu locytes (promyelocytes, myelocytes and metamyelocytes) > 1% indicates that a LEFT SHIFT is Present. MCH (RBC) [Entitic mass] 30.0 pg 27.0-32.0 [facility] Work Phone: Nucleated RBC/100 WBC (Bld) [Ratio] 0 % 0-5 [facility] Work Phone: MCHC Auto (RBC) [Mass/Vol]on 09-09-2021 MCHC (RBC) [Mass/Vol] 33.0 g/dL 32-36 [facility] Work Phone: No Panel Informationon 09-09 Estimated Creatinine Clearance Calc 51.88 ml/min [facility] Work Phone: Estimated GFR (MDRD) Amer 57 mL/min >60 [facility] Work Phone: Comment on above: GFR Calc Estimated GFR (MDRD) Non-Af Amer 47 mL/min >60 [facility] Work Phone: Comment on above: Non- GFR Calc Platelets bldon 09-09-2021 Platelets (Bld) [#/Vol] 264 10*3/uL 150-450 [facility] Work Phone: Serum or plasma calcium renu urement (mass/volume)on 09-09-2021 Calcium [Mass/Vol] 9.2 mg/dL 8.5-10.1 [facility] Work Phone: Serum or plasma creatinine m easurement (mass/volume)on 09-09-2021 Creatinine [Mass/Vol] 1.57 mg/dL 0.70-1.30 [facility] Work Phone: Comment on above: The validity of the calculated GFR & GFRAA in patients over 70 years has not been determined. Clinical correlation is essential. Serum or plasma urea nitroge n measurement (mass/volume)on 09-09-2021 Urea nitrogen [Mass/Vol] 29 mg/dL 7-18 [facility] Work Phone: Thin prep Papanicolaou smear with manual screeningon 09-09-2021 Thin prep Papanicolaou smear with manual screening 3 5-15 [facility] Work Phone: Basophil percentageon 2021 Chloride [Moles/Vol] 111 mmol/L 98-107 [facility] Work Phone: Cholesterol [Mass/Vol] 144 mg/dL <200 [facility] Work Phone: Comment on above: <200 mg/dL Desirable 200-240 mg/dL Borderline >240 mg/dL High Risk Glucose [Mass/Vol] 106 mg/dL 74-106 [facility] Work Phone: Comment on above: Fasting Glucose resu lt from 100 to 125 mg/dL suggests IMPAIRED HOMEOSTASIS per A.D.A. criteria. Potassium [Moles/Vol] 4.4 mmol/L 3.5-5.1 [facility] Work Phone: Sodium [Moles/Vol] 143 mmol/L 136-145 [facility] Work Phone: Triglyceride [Mass/Vol] 132 mg/dL [facility] Work Phone: Comment on above: The drugs N-Acetylcy steine and Metamizole may falsely depress this assay.Serum Triglycerides Reference Interval Normal <150 mg/dL Borderline high 150 - 199 mg/dL High 200 - 499 mg/dL Very High > or = 500 mg/dL WBC (Bld) [#/Vol] 9.0 10*3/uL 4.4-11.0 [facility] Work Phone: Blood erythrocytes count (nu mber/volume)on 08-01-2021 RBC (Bld) [#/Vol] 4.49 10*6/uL 4.6-6.2 [facility] Work Phone: Blood hemoglobin measurement (mass/volume)on 08-01-2021 Hemoglobin (Bld) [Mass/Vol] 13.8 g/dL 13.0-16.5 [facility] Work Phone: Blood platelet mean volumeon 08-01-2021 Platelet mean volume (Bld) [Entitic vol] 10.2 fL 6.2-12.0 [facility] Work Phone: Determination of erythrocyte mean corpuscular volume (MCV)on 08-01-2021 MCV (RBC) [Entitic vol] 93.1 fL 80-94 [facility] Work Phone: Hematocrit Auto (Bld) [Volum e fraction]on 08-01-2021 Hematocrit (Bld) [Volume fraction] 41.8 % 40-54 [facility] Work Phone: Laboratory - Chemistry and C hemistry - challengeon 08-01-2021 CO2 [Moles/Vol] 29.0 mmol/L 21.0-32.0 [facility] Work Phone: Urea nitrogen/Creatinine [Mass ratio] 19.4 mg/mg 10-20 [facility] Work Phone: Laboratory - Hematology and Cell countson 08-01-2021 Erythrocyte distribution width (RBC) [Entitic vol] 45.3 fL 35.1-43.9 [facility] Work Phone: Erythrocyte distribution width (RBC) [Ratio] 13.2 % 11.6-14.6 [facility] Work Phone: MCH (RBC) [Entitic mass] 30.7 pg 27.0-32.0 [facility] Work Phone: MCHC Auto (RBC) [Mass/Vol]on 08-01-2021 MCHC (RBC) [Mass/Vol] 33.0 g/dL 32-36 [facility] Work Phone: No Panel Informationon 08-01 Estimated GFR (MDRD) Amer 58 mL/min >60 [facility] Work Phone: Comment on above: GFR Calc Estimated GFR (MDRD) Non-Af Amer 48 mL/min >60 [facility] Work Phone: Comment on above: Non- GFR Calc Platelets bldon 08-01-2021 Platelets (Bld) [#/Vol] 276 10*3/uL 150-450 [facility] Work Phone: Serum or plasma calcium renu urement (mass/volume)on 08-01-2021 Calcium [Mass/Vol] 9.3 mg/dL 8.5-10.1 [facility] Work Phone: Serum or plasma cholesterol in HDL measurement (mass/volume)on 08-01-2021 Cholesterol in HDL [Mass/Vol] 49 mg/dL [facility] Work Phone: Comment on above: The drugs N-Acetylcy steine and Metamizole may falsely depress this assay. Reference Range HDL <40 mg/dL Low HDL Cholesterol HDL >or= 60 mg/dL High HDL Cholesterol Serum or plasma cholesterol in VLDL measurement (mass/volume)on 08-01-2021 Cholesterol in VLDL [Mass/Vol] 26 mg/dL 5-40 [facility] Work Phone: Serum or plasma creatinine m easurement (mass/volume)on 08-01-2021 Creatinine [Mass/Vol] 1.55 mg/dL 0.70-1.30 [facility] Work Phone: Comment on above: The validity of the calculated GFR & GFRAA in patients over 70 years has not been determined. Clinical correlation is essential. Serum or plasma low density lipoprotein (LDL) cholesterol measurement (mass/volume)on 08-01-2021 Cholesterol in LDL [Mass/Vol] 69 mg/dL 0-130 [facility] Work Phone: Serum or plasma urea nitroge n measurement (mass/volume)on 08-01-2021 Urea nitrogen [Mass/Vol] 30 mg/dL 7-18 [facility] Work Phone: Thin prep Papanicolaou smear with manual screeningon 08-01-2021 Thin prep Papanicolaou smear with manual screening 3 5-15 [facility] Work Phone: Basophil percentageon 2021 Creatinine [Mass/Vol] 1.2 mg/dL 0.70-1.30 [facility] Work Phone: No Panel Informationon 07-02 Bedside Estimated GFR (eGFR) > 60.0000 mL/min >60 [facility] Work Phone: ACT,Whole Bloodon 03-18-2021 ACT,Whole Blood 207 s High 90-134 [facility] [employer] Comment on above: Result Comment: ACTB O Performed by [employer] ID: [id number] [place], [place] ACT testing is not intended for patients taking aprotonin, patients with hematocrits of <20% or >55%, patients using other types of anticoagulation medications, and patients with Lupus Anticoagulant. Performed By: #### A CTBO #### [facility] [address] [place] [phone] ACT,Whole Blood 219 s High 90-134 [facility] Comment on above: Result Comment: ACTB O Performed by [employer] ID: [id number] [place] ACT testing is not intended for patients taking aprotonin, patients with hematocrits of <20% or >55%, patients using other types of anticoagulation medications, and patients with Lupus Anticoagulant. Performed By: #### A CTBO #### [facility] [address] [place] [phone] Activated clotting timeOrder ed By: Zoie Gonzales on 03-18-2021 Activated Clotting Time 219 s High 90 - 134 s [facility] Work Phone: Comment on above: ACTBO Performed by [employer] ID: [id number] [place] ACT testing is not intended for patients taking aprotonin, patients with hematocrits of <20% or >55%, patients using other types of anticoagulation medications, and patients with Lupus Anticoagulant. Interpretation and review of laboratory results Abnormal [facility] Work Phone: Test Performed by [facility], [facility] [place] [address] [facility] Work Phone: [facility] Work Phone: Activated Clotting Time 207 s High 90 - 134 s [facility] Work Phone: Comment on above: ACTBO Performed by [employer] ID: [id number] [facility] [place] ACT testing is not intended for patients taking aprotonin, patients with hematocrits of <20% or >55%, patients using other types of anticoagulation medications, and patients with Lupus Anticoagulant. Interpretation and review of laboratory results Abnormal [employer] Work Phone: Test Performed by [facility], [address] [place] [id number] [facility] Work Phone: [facility] Work Phone: CBCOrdered By: Milagro escobar on 03-18-2021 Hematocrit (Bld) [Volume fraction] 35.6 % Low 40.0 - 52.0 % [facility] Work Phone: Hemoglobin.gastrointes tinal spec 1 Ql (Stl) 12.1 g/dL Low 13.0 - 18.0 g/dL [facility] Work Phone: Interpretation and review of laboratory results Abnormal [facility] Work Phone: MCH (RBC) [Entitic mass] 30.5 pg 26.0 - 34.0 pg [facility] Work Phone: MCHC (RBC) [Mass/Vol] 34.2 % 32.0 - 36.0 % [facility] Work Phone: MCV (RBC) [Entitic vol] 89.3 fL 80.0 - 98.0 fL [facility] Work Phone: Platelet distribution width (Bld) [Ratio] 14.8 % High 11.5 - 14.5 % [facility] Work Phone: Platelet mean volume (Bld) [Entitic vol] 7.9 fL 7.4 - 10.4 fL [facility] Work Phone: Platelets (Bld) [#/Vol] 241 10*3/uL 140 - 440 10*3/uL [facility] Work Phone: RBC (Bld) [#/Vol] 3.98 10*6/uL Low 4.40 - 5.90 10*6/uL [facility] Work Phone: WBC (Bld) [#/Vol] 8.6 10*3/uL 3.6 - 10.7 10*3/uL [facility] Work Phone: Test Performed by [facility], [address] [place] [address] [facility] Work Phone: [facility] Work Phone: Comp Panel with Mg Reflexon 03-18-2021 Calcium [Mass/Vol] 8.4 mg/dL Normal 8.4-10.4 [facility] Comment on above: Performed By: #### C MP3M, HEMOG #### [facility] [address] [place] [address] ALP [Catalytic activity/Vol] 83 U/L Normal 38-126 [facility] Comment on above: Performed By: #### C MP3M, HEMOG #### [place] [address] [address] [place], [place] ALT [Catalytic activity/Vol] 17 U/L Normal 0-49 [facility] Comment on above: Result Comment: The ALT test is performed by an updated assay method. Please note that the reference intervals have been changed and are now sex specific. Performed By: #### C MP3M, HEMOG #### [place] [address] [address] [place], [place] Anion gap [Moles/Vol] 7 mmol/L Normal 3-13 [facility] Comment on above: Performed By: #### C MP3M, HEMOG #### [place] [address] [address] [place], [place] AST [Catalytic activity/Vol] 21 U/L Normal 15-46 [facility] Comment on above: Performed By: #### C MP3M, HEMOG #### [place] [address] [address] [place], [place] Bilirubin [Mass/Vol] 1.0 mg/dL Normal 0.2-1.3 [facility] Comment on above: Performed By: #### C MP3M, HEMOG #### [place] [address] [address] [place], [place] CO2 [Moles/Vol] 21 mmol/L Low 22-30 [facility] Comment on above: Performed By: #### C MP3M, HEMOG #### [facility] [address], [place] Glucose [Mass/Vol] 114 mg/dL High 70-100 [facility] Comment on above: Performed By: #### C MP3M, HEMOG #### [facility] [address], [place] Protein [Mass/Vol] 6.1 g/dL Low 6.3-8.2 [facility] Comment on above: Performed By: #### C MP3M, HEMOG #### [facility] [address], [place] Urea nitrogen [Mass/Vol] 19 mg/dL High 7-17 [facility] Comment on above: Performed By: #### C MP3M, HEMOG #### [facility] [address], [place] Creatinine [Mass/Vol] 0.98 mg/dL Normal 0.52-1.25 [facility] Comment on above: Performed By: #### C MP3M, HEMOG #### [facility] [address], [place] GFR/1.73 sq M.predicted among blacks MDRD (S/P/Bld) [Vol rate/Area] mL/min/{1.73_m2} Normal >60 [facility] Comment on above: Performed By: #### C MP3M, HEMOG #### [facility] [address], [place] GFR/1.73 sq M.predicted among non-blacks MDRD (S/P/Bld) [Vol rate/Area] 80.4 mL/min/{1.73_m2} Normal >60 [facility] Comment on above: Result Comment: KDIG O guidelines provide the following GFR categories: Stage GFR(ml/min/1.73 m2) Terms G1 >=90 Normal or high G2 60-89 Mildly decreased* G3a 45-59 Mildly to moderately decreased G3b 30-44 Moderately to severely decreased G4 15-29 Severely decreased G5 <15 Kidney failure *Relative to young adult level. In the absence of evidence of kidney damage, neither GFR category G1 nor G2 fulfill the criteria for CKD. The CKD-EPI equation is validated in individuals 18 years of age and older. Currently the best equation for estimating glomerular filtration rate (GFR) from serum creatinine in children is the Bedside Hernandez equation. It is less accurate in patients with extremes of muscle mass, restriction of dietary protein, ingestion of creatine, extra-renal metabolism of creatinine, or treatment with medications that affect renal tubular creatinine secretion. Performed By: #### C MP3M, HEMOG #### [place] [address] [place] [address] Albumin [Mass/Vol] 3.4 g/dL Low 3.5-5.0 [facility] Comment on above: Performed By: #### C MP3M, HEMOG #### [place] [address] [place] [address] Chloride [Moles/Vol] 112 mmol/L High 98-107 [facility] Comment on above: Performed By: #### C MP3M, HEMOG #### [place] [address] [place] [address] Potassium [Moles/Vol] 4.0 mmol/L Normal 3.5-5.1 [facility] Comment on above: Performed By: #### C MP3M, HEMOG #### [place] [address] [place] [address] Sodium [Moles/Vol] 139 mmol/L Normal 135-145 [facility] Comment on above: Performed By: #### C MP3M, HEMOG #### [place] [address] [place] [address] Comprehensive Metabolic Pane l w/ Reflex to MGOrdered By: Milagro Jaimes on 03-18-2021 Albumin [Mass/Vol] 3.4 g/dL Low 3.5 - 5.0 g/dL [facility] Work Phone: ALP (Bld) [Catalytic activity/Vol] 83 U/L 38 - 126 U/L [facility] Work Phone: ALT [Catalytic activity/Vol] 17 U/L 0 - 49 U/L [facility] Work Phone: Comment on above: The ALT test is perf ormed by an updated assay method. Please note that the reference intervals have been changed and are now sex specific. Anion gap [Moles/Vol] 7 mmol/L 3 - 13 mmol/L [facility] Work Phone: AST [Catalytic activity/Vol] 21 U/L 15 - 46 U/L [facility] Work Phone: Bilirubin [Mass/Vol] 1.0 mg/dL 0.2 - 1 .3 mg/dL [facility] Work Phone: Calcium [Mass/Vol] 8.4 mg/dL 8.4 - 10. 4 mg/dL [facility] [employer] Work Phone: [phone] Chloride [Moles/Vol] 112 mmol/L High 98 - 10 7 mmol/L [facility] Work Phone: CO2 [Moles/Vol] 21 mmol/L Low 22 - 30 mmol/L [facility] Work Phone: Creatinine [Mass/Vol] 0.98 mg/dL 0.52 - 1.25 mg/dL [employer] Work Phone: EGFR IF NonAfrican Guinean 80.4 mL/min >60 [facility] Work Phone: Comment on above: KDIGO guidelines pro vide the following GFR categories: Stage GFR(ml/min/1.73 m2) Terms G1 >=90 Normal or high G2 60-89 Mildly decreased* G3a 45-59 Mildly to moderately decreased G3b 30-44 Moderately to severely decreased G4 15-29 Severely decreased G5 <15 Kidney failure *Relative to young adult level. In the absence of evidence of kidney damage, neither GFR category G1 nor G2 fulfill the criteria for CKD. The CKD-EPI equation is validated in individuals 18 years of age and older. Currently the best equation for estimating glomerular filtration rate (GFR) from serum creatinine in children is the Bedside Hernandez equation. It is less accurate in patients with extremes of muscle mass, restriction of dietary protein, ingestion of creatine, extra-renal metabolism of creatinine, or treatment with medications that affect renal tubular creatinine secretion. Free PSA/Total PSA [Mass fraction] 6.1 g/dL Low 6.3 - 8.2 g/dL [facility] Work Phone: GFR/1.73 sq M.predicted among blacks MDRD (S/P/Bld) [Vol rate/Area] mL/min/{1.73_m2} >60 mL/min [facility] Work Phone: Glucose [Mass/Vol] 114 mg/dL High 70 - 100 mg/dL [facility] Work Phone: Interpretation and review of laboratory results Abnormal [facility] Work Phone: Potassium [Moles/Vol] 4.0 mmol/L 3.5 - 5.1 mmol/L [facility] Work Phone: Sodium [Moles/Vol] 139 mmol/L 135 - 145 mmol/L [facility] Work Phone: Urea nitrogen (BldV) [Mass/Vol] 19 mg/dL High 7 - 17 mg/dL [facility] Work Phone: Test Performed by [facility], [address] [place] [id number] [facility] Work Phone: [facility] Work Phone: Hemogramon 03-18-2021 Erythrocyte distribution width (RBC) [Ratio] 14.8 % High 11.5-14.5 [facility] Comment on above: Performed By: #### C MP3M, HEMOG #### [facility] [employer] [address] [phone] Hematocrit (Bld) [Volume fraction] 35.6 % Low 40.0-52.0 [facility] Comment on above: Performed By: #### C MP3M, HEMOG #### [facility] [employer] [address] [address] Hemoglobin (Bld) [Mass/Vol] 12.1 g/dL Low 13.0-18.0 [facility] Comment on above: Performed By: #### C MP3M, HEMOG #### [facility] [employer] [address] [phone] MCH (RBC) [Entitic mass] 30.5 pg Normal 26.0-34.0 [facility] Comment on above: Performed By: #### C MP3M, HEMOG #### [facility] [address], [place] MCHC 34.2 % Normal 32.0-36.0 [facility] Comment on above: Performed By: #### C MP3M, HEMOG #### [facility] [address], [place] MCV (RBC) [Entitic vol] 89.3 fL Normal 80.0-98.0 [facility] Comment on above: Performed By: #### C MP3M, HEMOG #### [place] [address] [address] [place], [place] Platelet mean volume (Bld) [Entitic vol] 7.9 fL Normal 7.4-10.4 [facility] Comment on above: Performed By: #### C MP3M, HEMOG #### [place] [address] [address] [place], [place] Platelets (Bld) [#/Vol] 241 10*3/uL Normal 140-440 [facility] Comment on above: Performed By: #### C MP3M, HEMOG #### [place] [address] [address] [place], [place] RBC (Bld) [#/Vol] 3.98 10*6/uL Low 4.40-5.90 [facility] Comment on above: Performed By: #### C MP3M, HEMOG #### [place] [address] [address] [place], [place] WBC (Bld) [#/Vol] 8.6 10*3/uL Normal 3.6-10.7 [facility] Comment on above: Performed By: #### C MP3M, HEMOG #### [facility] [address], [place] CARDIAC CATH NURSING LOGOrde red By: 3m Scanning on 03-17-2021 [facility] Work Phone: Catheterization and angiogra phy procedure details panelOrdered By: Zoie Gonzales on 03-17-2021 [facility]HE[facility] Patient: Shannon Olson Procedure Date: 03/17/2021 : 1955 Age: 65 Gender: M Patient Type: Outpatient Procedure physician: Zoie Gonzales MD Fellow: Samuel North Referring Physician: Zoie Gonzales MD INDICATIONS: Unstable angina. Atherosclerotic coronary artery disease. Previous stent. Procedures performed: # Right coronary angiography. # Left coronary angiography. # Percutaneous intervention on the 80% stenosis in the mid right coronary. Balloon angioplasty. Stent placement. Stent placement. Stent placement. # Percutaneous intervention on the 100% occlusion in the distal right coronary. Balloon angioplasty. Balloon angioplasty. # Percutaneous intervention on the stenosis in the proximal right coronary. Balloon angioplasty. SUMMARY: 1. Left circumflex: Prior intervention: stent in [...] JORDAN grade 2 flow (partial perfusion). IMPRESSIONS: 1. Successful re-stenting of the mid-distal RCA ( 3.5 mm at high pressure reuired 38 mm, 38mm, and 23 mm stenst) 2. Small diffusely diseased distal vessels beyond the large stents. 3. Left coronary stent in CIRc is widley patent and LAD has mild diffuse iregularity. 4. Prior LV grams demonstrate inferior akinesis. RECOMMENDATIONS: Med Rx with aggressive lipid and diabetes control. HISTORY: Paroxysmal atrial fibrillation. Dyslipidemia. Chronic obstructive pulmonary disease. Myocardial infarction. Family history of cardiovascular disease. PMH: Myocardial infarction. Risk factors: H ypertension. Dyslipidemia. Family history is significant for coronary ar adams disease. Medications: Aspirin. BRILINTA (180 load). Heparin. Metoprolol (Lopressor, Toprol). Furosemide (Lasix). Clopidogrel (Plavi x). Amlodipine (Norvasc). Ezetimibe (Zetia). Lisinopril. Amiodarone (Cordarone). Apixaban (Eliquis). Allergies: Penicillin allergy. LABS, PRIOR TESTS, PROCEDURES, and SURGERY: Catheterization with coronary intervention (12/04/2014). Catheterization (2016). Catheterization (2017). PROCEDURE IN DETAIL: Study status: Cardiac cath: elective. Consent: The risks, benefits, and alternatives to the procedure and sedation wer e explained to the patient and informed consent was obtained. Fluorosco py time: Fluoroscopy time: 24.8 min. Fluoroscopy dose: Fluoroscopy do se: 282.2 cGy. Location: Catheterization laboratory. PROCEDURE: 1. Initial setup. The patient was brought to the laboratory. A baseline ECG was recorded. Intravenous access was obtained. Surface ECG leads, blood pressure measurements, and pulse oximetric signals were monitored. 2. Skin preparation. The planned puncture sites were prepped and draped in the usual sterile manner. 3. Local anesthesia. 1% lidocaine was administered. 4. Right radial artery access. A 6Fr/10cm Glidesheath Slender sheath was advanced into the vessel. 5. Selective right coronary angiography. A 5Fr x 100cm JR4 catheter was advanced into the right coronary vessel ostium under fluoroscopic guidance. Contrast was injected. Images were obtained in mul (more content not included)... [employer] Work Phone: [place], [facility] Incoming Cardiology Results From Anthony/Denae - 03/17/2021 12:23 PM EDT [facility] C[facility]HETER[facility]ATION Patient: Shannon Olson Procedure Date: 03/17/2021 : 1955 Age: 65 Gender: M Patient Type: Outpatient Procedure physician: Zoie Gonzales MD Fellow: Samuel North Referring Physician: Zoie Gonzales MD INDICATIONS: Unstable angina. Atherosclerotic coronary artery disease. Previous stent. Procedures performed: # Right coronary angiography. # Left coronary angiography. # Percutaneous intervention on the 80% stenosis in the mid right coronary. Balloon angioplasty. Stent placement. Stent placement. Stent placement. # Percutaneous intervention on the 100% occlusion in the distal right coronary. Balloon angioplasty. Balloon angioplasty. # Percutaneous intervention on the stenosis in the proximal right coronary. Balloon angioplasty. SUMMARY: 1. Left circumflex: Prior intervention: stent in [...] JORDAN grade 2 flow (partial perfusion). IMPRESSIONS: 1. Successful re-stenting of the mid-distal RCA ( 3.5 mm at high pressure reuired 38 mm, 38mm, and 23 mm stenst) 2. Small diffusely diseased distal vessels beyond the large stents. 3. Left coronary stent in CIRc is widley patent and LAD has mild diffuse iregularity. 4. Prior LV grams demonstrate inferior akinesis. RECOMMENDATIONS: Med Rx with aggressive lipid and diabetes control. HISTORY: Paroxysmal atrial fibrillation. Dyslipidemia. Chronic obstructive pulmonary disease. Myocardial infarction. Family history of cardiovascular disease. PMH: Myocardial infarction. Risk factors: H ypertension. Dyslipidemia. Family history is significant for coronary ar adams disease. Medications: Aspirin. BRILINTA (180 load). Heparin. Metoprolol (Lopressor, Toprol). Furosemide (Lasix). Clopidogrel (Plavi x). Amlodipine (Norvasc). Ezetimibe (Zetia). Lisinopril. Amiodarone (Cordarone). Apixaban (Eliquis). Allergies: Penicillin allergy. LABS, PRIOR TESTS, PROCEDURES, and SURGERY: Catheterization with coronary intervention (12/04/2014). Catheterization (2016). Catheterization (2018). PROCEDURE IN DETAIL: Study status: Cardiac cath: elective. Consent: The risks, benefits, and alternatives to the procedure and sedation wer e explained to the patient and informed consent was obtained. Fluorosco py time: Fluoroscopy time: 24.8 min. Fluoroscopy dose: Fluoroscopy do se: 282.2 cGy. Location: Catheterization laboratory. PROCEDURE: 1. Initial setup. The patient was brought to the laboratory. A baseline ECG was recorded. Intravenous access was obtained. Surface ECG leads, blood pressure measurements, and pulse oximetric signals were monitored. 2. Skin preparation. The planned puncture sites were prepped and draped in the usual sterile manner. 3. Local anesthesia. 1% lidocaine was administered. 4. Right radial artery access. A 6Fr/10cm Glidesheath Slender sheath was advanced into the vessel. 5. Selective right coronary angiography. A 5Fr x 100cm JR4 catheter was advanced into the right coronary vessel ostium under fluoroscopic guidance. Contrast was injected. Images were obtained in multiple projections. 6. Janeth (more content not included)... [facility] Work Phone: [facility] Work Phone: Diagnostic Catherizationon 1 Diagnostic Catherization [facility]: [id number] [employer] ACCESSION EXAM DATE/TIME PROCEDURE ORDERING PROVIDER [id number] 03/17/2021 11:59 EDT Diagnostic Catherization MD MO, ZOIE Reason For Exam (Diagnostic Catherization) cad Report [facility] CARDIAC CATHE[facility]IZATION Patient: Shannon Olson Procedure Date: 03/17/2021 : 1955 Age: 65 Gender: M Patient Type: Outpatient Procedure physician: Zoie Gonzales MD Fellow: Samuel North Referring Physician: Zoie Gonzales MD INDICATIONS: Unstable angina. Atherosclerotic coronary artery disease. Previous stent. Procedures performed: # Right coronary angiography. # Left coronary angiography. # Percutaneous intervention on the 80% stenosis in the mid right coronary. Balloon angioplasty. Stent placement. Stent placement. Stent placement. # Percutaneous intervention on the 100% occlusion in the distal right coronary. Balloon angioplasty. Balloon angioplasty. # Percutaneous intervention on the stenosis in the proximal right coronary. Balloon angioplasty. SUMMARY: 1. Left circumflex: Prior intervention: stent in [...] improved angiographic appearance (see 2nd lesion intervention). [employer] Report Following intervention, there is a residual 0% [...] JORDAN grade 2 flow (partial perfusion). IMPRESSIONS: 1. Successful re-stenting of the mid-distal RCA ( 3.5 mm at high pressure reuired 38 mm, 38mm, and 23 mm stenst) 2. Small diffusely diseased distal vessels beyond the large stents. 3. Left coronary stent in CIRc is widley patent and LAD has mild diffuse iregularity. 4. Prior LV grams demonstrate inferior akinesis. RECOMMENDATIONS: Med Rx with aggressive lipid and diabetes control. HISTORY: Paroxysmal atrial fibrillation. Dyslipidemia. Chronic obstructive pulmonary disease. Myocardial infarction. Family history of cardiovascular disease. PMH: Myocardial infarction. Risk factors: H ypertension. Dyslipidemia. Family history is significant for coronary ar adams disease. Medications: Aspirin. BRILINTA (180 load). Heparin. Metoprolol (Lopressor, Toprol). Furosemide (Lasix). Clopidogrel (Plavi x). Amlodipine (Norvasc). Ezetimibe (Zetia). Lisinopril. Amiodarone (Cordarone). Apixaban (Eliquis). Allergies: Penicillin allergy. LABS, PRIOR TESTS, PROCEDURES, and SURGERY: Catheterization with coronary intervention (12/04/2014). Catheterization (2016). Catheterization (2018). PROCEDURE IN DETAIL: Study status: Cardiac cath: elective. Consent: The risks, benefits, and alternatives to the procedure and sedation wer e explained to the patient and informed consent was obtained. Fluorosco py time: Fluoroscopy time: 24.8 min. Fluoroscopy dose: Fluoroscopy do se: 282.2 cGy. Location: Catheterization laboratory. PROCEDURE: 1. Initial setup. The patient was brought to the laboratory. A baseline ECG was recorded. Intravenous access was obtained. Surface ECG leads, blood pressure measurements, and pulse oximetric signals were monitored. 2. Skin preparation. The planned puncture sites were prepped and draped in the usual sterile manner. 3. Local anesthesia. 1% lidocaine was administered. 4. Right radial artery access. A 6Fr/10cm Glidesheath Slender sheath was advanced into the vessel. 5. Selective right coronary angiography. A 5Fr x 100cm JR4 catheter was advanced into the ri (more content not included)... Normal [facility] Basic Metabolic Panelon 10-1 Anion gap [Moles/Vol] 7 mmol/L Normal 3-13 [facility] Comment on above: Performed By: #### B MP3, HEMOG #### [facility] [employer] [facility] [address], [place] Calcium [Mass/Vol] 9.2 mg/dL Normal 8.4-10.4 [facility] Comment on above: Performed By: #### B MP3, HEMOG #### [facility] [employer] [facility] [address], [place] CO2 [Moles/Vol] 26 mmol/L Normal 22-30 [facility] Comment on above: Performed By: #### B MP3, HEMOG #### [facility] [address], [place] Creatinine [Mass/Vol] 1.26 mg/dL High 0.52-1.25 [facility] Comment on above: Performed By: #### B MP3, HEMOG #### [facility] [address] [place] [address] GFR/1.73 sq M.predicted among blacks MDRD (S/P/Bld) [Vol rate/Area] 68.7 mL/min/{1.73_m2} Normal >60 [facility] Comment on above: Performed By: #### B MP3, HEMOG #### [facility] [address], [place] GFR/1.73 sq M.predicted among non-blacks MDRD (S/P/Bld) [Vol rate/Area] 59.3 mL/min/{1.73_m2} Abnormal >60 [facility] Comment on above: Result Comment: KDIG O guidelines provide the following GFR categories: Stage GFR(ml/min/1.73 m2) Terms G1 >=90 Normal or high G2 60-89 Mildly decreased* G3a 45-59 Mildly to moderately decreased G3b 30-44 Moderately to severely decreased G4 15-29 Severely decreased G5 <15 Kidney failure *Relative to young adult level. In the absence of evidence of kidney damage, neither GFR category G1 nor G2 fulfill the criteria for CKD. The CKD-EPI equation is validated in individuals 18 years of age and older. Currently the best equation for estimating glomerular filtration rate (GFR) from serum creatinine in children is the Bedside Hernandez equation. It is less accurate in patients with extremes of muscle mass, restriction of dietary protein, ingestion of creatine, extra-renal metabolism of creatinine, or treatment with medications that affect renal tubular creatinine secretion. Performed By: #### B MP3, HEMOG #### [facility] [address], [place] Glucose [Mass/Vol] 107 mg/dL High 70-100 [facility] Comment on above: Performed By: #### B MP3, HEMOG #### [facility] [address], [place] Urea nitrogen [Mass/Vol] 24 mg/dL High 7-17 [facility] Comment on above: Performed By: #### B MP3, HEMOG #### [facility] [address] [place] [address] Chloride [Moles/Vol] 106 mmol/L Normal 98-107 [facility] Comment on above: Performed By: #### B MP3, HEMOG #### [facility] [address] [place] [address] Potassium [Moles/Vol] 4.1 mmol/L Normal 3.5-5.1 [facility] Comment on above: Result Comment: Slig htly hemolysed, interpret with caution. Performed By: #### B MP3, HEMOG #### [facility] [address], [place] Sodium [Moles/Vol] 140 mmol/L Normal 135-145 [facility] Comment on above: Performed By: #### B MP3, HEMOG #### [facility] [address], [place] Basic Metabolic PanelOrdered By: [place] on 03-10-2021 Anion gap [Moles/Vol] 7 mmol/L 3 - 13 mmol/L [facility] Work Phone: Calcium [Mass/Vol] 9.2 mg/dL 8.4 - 10. 4 mg/dL [facility] Work Phone: Chloride [Moles/Vol] 106 mmol/L 98 - 10 7 mmol/L [facility] Work Phone: CO2 [Moles/Vol] 26 mmol/L 22 - 30 mmol/L [facility] Work Phone: Creatinine [Mass/Vol] 1.26 mg/dL High 0.52 - 1.25 mg/dL [facility] Work Phone: EGFR IF NonAfrican Guinean 59.3 mL/min Abnormal >60 [facility] Work Phone: Comment on above: KDIGO guidelines pro vide the following GFR categories: Stage GFR(ml/min/1.73 m2) Terms G1 >=90 Normal or high G2 60-89 Mildly decreased* G3a 45-59 Mildly to moderately decreased G3b 30-44 Moderately to severely decreased G4 15-29 Severely decreased G5 <15 Kidney failure *Relative to young adult level. In the absence of evidence of kidney damage, neither GFR category G1 nor G2 fulfill the criteria for CKD. The CKD-EPI equation is validated in individuals 18 years of age and older. Currently the best equation for estimating glomerular filtration rate (GFR) from serum creatinine in children is the Bedside Hernandez equation. It is less accurate in patients with extremes of muscle mass, restriction of dietary protein, ingestion of creatine, extra-renal metabolism of creatinine, or treatment with medications that affect renal tubular creatinine secretion. GFR/1.73 sq M.predicted among blacks MDRD (S/P/Bld) [Vol rate/Area] 68.7 mL/min/{1.73_m2} >60 [facility] Work Phone: Glucose [Mass/Vol] 107 mg/dL High 70 - 100 mg/dL [facility] Work Phone: Interpretation and review of laboratory results Abnormal [facility] Work Phone: Potassium [Moles/Vol] 4.1 mmol/L 3.5 - 5.1 mmol/L [facility] Work Phone: Comment on above: Slightly hemolysed, interpret with caution. Sodium [Moles/Vol] 140 mmol/L 135 - 145 mmol/L [facility] Work Phone: Urea nitrogen (BldV) [Mass/Vol] 24 mg/dL High 7 - 17 mg/dL [facility] Work Phone: Test Performed by [facility], [address] [place] [address] [facility] Work Phone: [facility] Work Phone: CBCOrdered By: [place] on 03-10-2021 Hematocrit (Bld) [Volume fraction] 39.6 % Low 40.0 - 52.0 % [facility] Work Phone: Hemoglobin.gastrointes tinal spec 1 Ql (Stl) 13.3 g/dL 13.0 - 18.0 g/dL [facility] Work Phone: [phone] Interpretation and review of laboratory results Abnormal [facility] Work Phone: MCH (RBC) [Entitic mass] 30.3 pg 26.0 - 34.0 pg [employer] Work Phone: [phone] MCHC (RBC) [Mass/Vol] 33.5 % 32.0 - 36.0 % [employer] Work Phone: [phone] MCV (RBC) [Entitic vol] 90.3 fL 80.0 - 98.0 fL [employer] Work Phone: [phone] Platelet distribution width (Bld) [Ratio] 15.2 % High 11.5 - 14.5 % [employer] Work Phone: [phone] Platelet mean volume (Bld) [Entitic vol] 8.0 fL 7.4 - 10.4 fL [employer] Work Phone: [phone] Platelets (Bld) [#/Vol] 267 10*3/uL 140 - 440 10*3/uL [employer] Work Phone: [phone] RBC (Bld) [#/Vol] 4.39 10*6/uL Low 4.40 - 5.90 10*6/uL [employer] Work Phone: [phone] WBC (Bld) [#/Vol] 9.2 10*3/uL 3.6 - 10.7 10*3/uL [employer] Work Phone: [phone] Test Performed by [facility], [address] [place] [address] [facility] Work Phone: [phone] [employer] Work Phone: [phone] Hemogramon 03-10-2021 Erythrocyte distribution width (RBC) [Ratio] 15.2 % High 11.5-14.5 [facility] Comment on above: Performed By: #### B MP3, HEMOG #### [facility] [employer] [facility] [address] [place] [address] Hematocrit (Bld) [Volume fraction] 39.6 % Low 40.0-52.0 [facility] Comment on above: Performed By: #### B MP3, HEMOG #### [facility] [employer] [facility] [address] [place] [address] Hemoglobin (Bld) [Mass/Vol] 13.3 g/dL Normal 13.0-18.0 [facility] Comment on above: Performed By: #### B MP3, HEMOG #### [facility] [address], [place] MCH (RBC) [Entitic mass] 30.3 pg Normal 26.0-34.0 [facility] Comment on above: Performed By: #### B MP3, HEMOG #### [facility] [address], [place] MCHC 33.5 % Normal 32.0-36.0 [facility] Comment on above: Performed By: #### B MP3, HEMOG #### [facility] [address], [place] MCV (RBC) [Entitic vol] 90.3 fL Normal 80.0-98.0 [facility] Comment on above: Performed By: #### B MP3, HEMOG #### [place] [address], [place] Platelet mean volume (Bld) [Entitic vol] 8.0 fL Normal 7.4-10.4 [facility] Comment on above: Performed By: #### B MP3, HEMOG #### [facility] [address], [place] Platelets (Bld) [#/Vol] 267 10*3/uL Normal 140-440 [facility] Comment on above: Performed By: #### B MP3, HEMOG #### [facility] [address], [place] RBC (Bld) [#/Vol] 4.39 10*6/uL Low 4.40-5.90 [facility] Comment on above: Performed By: #### B MP3, HEMOG #### [facility] [address], [place] WBC (Bld) [#/Vol] 9.2 10*3/uL Normal 3.6-10.7 [facility] Comment on above: Performed By: #### B MP3, HEMOG #### [facility] [address], [place] CNCOon 09-26-2020 CNCO Letter Text Normal [facility] Basic Metabolic Panelon 04-2 Anion gap [Moles/Vol] 10 Normal [facility] Comment on above: Performed By: #### H EMDF, BMP3, LIPA4, TROPN #### [employer] [facility] [address] [place] [address] Calcium [Mass/Vol] 9.0 mg/dL Normal 8.4-10.4 [facility] Comment on above: Performed By: #### H EMDF, BMP3, LIPA4, TROPN #### [employer] [facility] [address] [place] [address] CO2 [Moles/Vol] 25 mmol/L Normal 22-30 [facility] Comment on above: Performed By: #### H EMDF, BMP3, LIPA4, TROPN #### [facility] [employer] [facility] [address] [place] [address] Creatinine [Mass/Vol] 0.88 mg/dL Normal 0.52-1.25 [facility] Comment on above: Performed By: #### H EMDF, BMP3, LIPA4, TROPN #### [employer] [facility] [address] [place] [address] GFR/1.73 sq M predicted among blacks MDRD (S/P/Bld) [Vol rate/Area] mL/min/{1.73_m2} Normal >60 [facility] Comment on above: Performed By: #### H EMDF, BMP3, LIPA4, TROPN #### [facility] [employer] [facility] [address] [place] [address] GFR/1.73 sq M predicted among non-blacks MDRD (S/P/Bld) [Vol rate/Area] mL/min/{1.73_m2} Normal >60 [facility] Comment on above: Result Comment: Sour ce- MDRD equation with creatinine calibration to IDMS(NKDEP) eGFR not recommended for drug dose adjustment Performed By: #### H EMDF, BMP3, LIPA4, TROPN #### [employer] [facility] [address] [place] [address] Glucose [Mass/Vol] 128 mg/dL High 70-100 [facility] Comment on above: Performed By: #### H EMDF, BMP3, LIPA4, TROPN #### [facility] [address] [place] [address] Urea nitrogen [Mass/Vol] 19 mg/dL Normal 7-20 [facility] Comment on above: Performed By: #### H EMDF, BMP3, LIPA4, TROPN #### [facility] [address] [place] [address] Chloride [Moles/Vol] 108 mmol/L High 98-107 [facility] Comment on above: Performed By: #### H EMDF, BMP3, LIPA4, TROPN #### [facility] [address] [place] [address] Potassium [Moles/Vol] 3.6 mmol/L Normal 3.5-5.1 [facility] Comment on above: Performed By: #### H EMDF, BMP3, LIPA4, TROPN #### [facility] [address] [place] [address] Sodium [Moles/Vol] 143 mmol/L Normal 135-145 [facility] Comment on above: Performed By: #### H EMDF, BMP3, LIPA4, TROPN #### [facility] [address] [place] [address] Anion gap [Moles/Vol] 10 mmol/L [place], [place] Calcium [Mass/Vol] 9.0 mg/dL 8.4 - 10. 4 mg/dL [place], [place] Chloride [Moles/Vol] 108 mmol/L High 98 - 10 7 mmol/L [place] CO2 [Moles/Vol] 25 mmol/L 22 - 30 mmol/L [place] Creatinine [Mass/Vol] 0.88 mg/dL 0.52 - 1.25 mg/dL [place], [place] EGFR IF NonAfrican [place]inean >60.0 >60 mL/min [place], [place] Comment on above: Source- MDRD equatio n with creatinine calibration to IDMS(NKDEP) eGFR not recommended for drug dose adjustment GFR/1.73 sq M predicted among blacks MDRD (S/P/Bld) [Vol rate/Area] mL/min/{1.73_m2} >60 mL/min [place] Glucose [Mass/Vol] 128 mg/dL High 70 - 100 mg/dL [place] Interpretation and review of laboratory results Abnormal [place] Potassium [Moles/Vol] 3.6 mmol/L 3.5 - 5.1 mmol/L [place] Sodium [Moles/Vol] 143 mmol/L 135 - 145 mmol/L [place] Urea nitrogen [Mass/Vol] 19 mg/dL 7 - 20 mg/dL [place], [place] CR Chest Portableon 09-15-19 20 CR Chest Portable Patient Name: SHANNON OLSON Diagnostic Radiology Exam Date/Time 09/15/2019 02:35:21 EDT Exam CR Chest Portable Ordering Physician MD VARSHA, JUSTEN Accession Number [id number] CPT4 Codes 57305 () Reason For Exam chest pain Report PORTABLE CHEST CLINICAL INDICATION: Chest pain TECHNIQUE: Portable AP COMPARISON: 09/05/2019 FINDINGS: Exam quality: EKG leads obscure small portions of the chest. The heart and mediastinum are normal. Atelectasis is noted at the right lung base. There is no consolidation. Costophrenic angles are sharp. Right shoulder arthroplasty is noted. IMPRESSION: Minor atelectasis at the right lung base Report Dictated on Workstation: [id number] Final Dictating Physician: MD CHAPMAN JEFFREY Signed Date and Time: 09/15/2019 2:43 am Signed by: MD CHAPMAN JEFFREY Transcribed Date and Time: 09/15/2019 2:44 Normal [facility] Hemogram (CBC) w/Auto Diffon 09-15-2019 Absolute Baso # 0.0 10*3/uL 0 - 0.2 10*3/uL [place], [place] Absolute Neut # 5.8 10*3/uL 1.8 - 7 10*3/uL [place] Basophils/100 WBC (Bld) 0.4 % 0 - 2 % [place] Eosinophils (Bld) [#/Vol] 0.1 10*3/uL 0 - 0.5 10*3/uL [place] Eosinophils/100 WBC (Bld) 1.5 % 1 - 6 % [place] Erythrocyte distribution width (RBC) [Ratio] 15.2 % High 11.5 - 14.5 % [place] Granulocytes/100 WBC (Bld) 72.1 % 40 - 80 % [place] Hematocrit (Bld) [Volume fraction] 37.9 % Low 40 - 52 % [place] Hemoglobin (Bld) [Mass/Vol] 12.4 g/dL Low 13 - 18 g/dL [place] Interpretation and review of laboratory results Abnormal [place] Lymphocytes (Bld) [#/Vol] 1.6 10*3/uL 1 - 4.3 10*3/uL [place] Lymphocytes/100 WBC (Bld) 19.5 % Low 20 - 40 % [place] MCH (RBC) [Entitic mass] 28.5 pg 26 - 34 pg [place] MCHC (RBC) [Mass/Vol] 32.8 % 32 - 36 % [place], [place] MCV (RBC) [Entitic vol] 86.9 fL 80 - 98 fL [place] Monocytes (Bld) [#/Vol] 0.5 10*3/uL 0 - 0.8 10*3/uL [place] Monocytes/100 WBC (Bld) 6.5 % 2 - 10 % [place] Platelet mean volume (Bld) [Entitic vol] 8.0 fL 7.4 - 10.4 fL [place] Platelets (Bld) [#/Vol] 232 10*3/uL 140 - 440 10*3/uL [place] RBC (Bld) [#/Vol] 4.36 10*6/uL Low 4.4 - 5.9 10*6/uL [place] WBC (Bld) [#/Vol] 8.1 10*3/uL 3.6 - 10.7 10*3/uL [facility] [place], [place] Test Performed by [facility], [address] [place] [address] [facility] [place], [place] Hemogram w/ Autodiffon 09-14 Abs Baso Cnt 0.0 10*3/uL Normal 0.0-0.2 [facility] Comment on above: Performed By: #### H EMDF, BMP3, LIPA4, TROPN #### [facility] [address] [place] [address] Abs Neutrophile Cnt 5.8 10*3/uL Normal 1.8-7.0 [facility] Comment on above: Performed By: #### H EMDF, BMP3, LIPA4, TROPN #### [facility] [address] [place] [address] Basophils/100 WBC (Bld) 0.4 % Normal 0.0-2.0 [facility] Comment on above: Performed By: #### H EMDF, BMP3, LIPA4, TROPN #### [facility] [address] [place] [address] Eosinophils (Bld) [#/Vol] 0.1 10*3/uL Normal 0.0-0.5 [facility] Comment on above: Performed By: #### H EMDF, BMP3, LIPA4, TROPN #### [facility] [address] [place] [address] Eosinophils/100 WBC (Bld) 1.5 % Normal 1.0-6.0 [facility] Comment on above: Performed By: #### H EMDF, BMP3, LIPA4, TROPN #### [facility] [address] [place] [address] Erythrocyte distribution width (RBC) [Ratio] 15.2 % High 11.5-14.5 [facility] Comment on above: Performed By: #### H EMDF, BMP3, LIPA4, TROPN #### [facility] [address] [place] [address] Granulocytes/100 WBC (Bld) 72.1 % Normal 40.0-80.0 [facility] Comment on above: Performed By: #### H EMDF, BMP3, LIPA4, TROPN #### [facility] [address] [place] [address] Hematocrit (Bld) [Volume fraction] 37.9 % Low 40.0-52.0 [facility] Comment on above: Performed By: #### H EMDF, BMP3, LIPA4, TROPN #### [facility] [address] [place] [address] Hemoglobin (Bld) [Mass/Vol] 12.4 g/dL Low 13.0-18.0 [facility] Comment on above: Performed By: #### H EMDF, BMP3, LIPA4, TROPN #### [facility] [address] [place] [address] Lymphocytes (Bld) [#/Vol] 1.6 10*3/uL Normal 1.0-4.3 [facility] Comment on above: Performed By: #### H EMDF, BMP3, LIPA4, TROPN #### [facility] [address] [place] [address] Lymphocytes/100 WBC (Bld) 19.5 % Low 20.0-40.0 [facility] Comment on above: Performed By: #### H EMDF, BMP3, LIPA4, TROPN #### [facility] [address] [place] [address] MCH (RBC) [Entitic mass] 28.5 pg Normal 26.0-34.0 [facility] Comment on above: Performed By: #### H EMDF, BMP3, LIPA4, TROPN #### [facility] [address] [place] [address] MCHC (RBC) [Mass/Vol] 32.8 % Normal 32.0-36.0 [facility] Comment on above: Performed By: #### H EMDF, BMP3, LIPA4, TROPN #### [facility] [address] [place] [address] MCV (RBC) [Entitic vol] 86.9 fL Normal 80.0-98.0 [facility] Comment on above: Performed By: #### H EMDF, BMP3, LIPA4, TROPN #### [facility] [address] [place] [address] Monocytes (Bld) [#/Vol] 0.5 10*3/uL Normal 0.0-0.8 [facility] Comment on above: Performed By: #### H EMDF, BMP3, LIPA4, TROPN #### [facility] [address] [place] [address] Monocytes/100 WBC (Bld) 6.5 % Normal 2.0-10.0 [facility] Comment on above: Performed By: #### H EMDF, BMP3, LIPA4, TROPN #### [facility] [address] [place] [address] Platelet mean volume (Bld) [Entitic vol] 8.0 fL Normal 7.4-10.4 [facility] Comment on above: Performed By: #### H EMDF, BMP3, LIPA4, TROPN #### [facility] [address] [place] [address] Platelets (Bld) [#/Vol] 232 10*3/uL Normal 140-440 [facility] Comment on above: Performed By: #### H EMDF, BMP3, LIPA4, TROPN #### [facility] [address] [place] [address] RBC (Bld) [#/Vol] 4.36 10*6/uL Low 4.40-5.90 [facility] Comment on above: Performed By: #### H EMDF, BMP3, LIPA4, TROPN #### [facility] [address] [place] [address] WBC (Bld) [#/Vol] 8.1 10*3/uL Normal 3.6-10.7 [facility] Comment on above: Performed By: #### H EMDF, BMP3, LIPA4, TROPN #### [facility] [address] [place] [address] Lipaseon 09-15-2019 Lipase [Catalytic activity/Vol] 97 U/L Normal 23-300 [facility] Comment on above: Performed By: #### H EMDF, BMP3, LIPA4, TROPN #### [facility] [address] [place] [address] Lipase [Catalytic activity/Vol] 97 U/L 23 - 300 U/L [place], [place] Otheron 09-15-2019 Test Performed by [facility], [address] [place], [place] [id number] [place] [address] Troponinon 09-15-2019 Troponin I.cardiac [Mass/Vol] 0.031 ng/mL 0 - 0.034 ng/mL [place], [place] Comment on above: . Test Performed by [facility], [address] [place], [place] [id number] [place] [address] Troponin Ion 09-15-2019 Troponin I.cardiac [Mass/Vol] 0.031 ng/mL Normal 0.000-0.03 4 [facility] Comment on above: Result Comment: . Performed By: #### T ROPN #### [facility] [address] [place] [address] Troponin I.cardiac [Mass/Vol] 0.030 ng/mL Normal 0.000-0.03 4 [facility] Comment on above: Result Comment: . Performed By: #### H EMDF, BMP3, LIPA4, TROPN #### [facility] [address] [place] [address] Troponin x1on 09-15-2019 Troponin I.cardiac [Mass/Vol] 0.030 ng/mL 0 - 0.034 ng/mL [place], [place] Comment on above: . Test Performed by [facility], [address] [place] [address] XR CHEST PORTABLEon 09-15-19 20 Patient Name: SHANNON OLSON ---Diagnostic Radiology--- Exam Date/Time 09/15/2019 02:35:21 EDT Exam CR Chest Portable Ordering Physician MD VARSHA, JUSTEN Accession Number [id number] CPT4 Codes 10009 () Reason For Exam chest pain Report PORTABLE CHEST CLINICAL INDICATION: Chest pain TECHNIQUE: Portable AP COMPARISON: 09/05/2019 FINDINGS: Exam quality: EKG leads obscure small portions of the chest. The heart and mediastinum are normal. Atelectasis is noted at the right lung base. There is no consolidation. Costophrenic angles are sharp. Right shoulder arthroplasty is noted. IMPRESSION: Minor atelectasis at the right lung base Report Dictated on Workstation: [id number] --- Final --- Dictating Physician: MD CHAPMAN JEFFREY Signed Date and Time: 09/15/2019 2:43 am Signed by: MD CHAPMAN JEFFREY Transcribed Date and Time: 09/15/2019 2:44 [place], [place] [facility] Incoming Radiology Results From [facility] - 09/15/2019 2:44 AM EDT Patient Name: SHANNON OLSON ---Diagnostic Radiology--- Exam Date/Time 09/15/2019 02:35:21 EDT Exam CR Chest Portable Ordering Physician MD VARSHA, [facility] Accession Number [id number] CPT4 Codes 98258 () Reason For Exam chest pain Report PORTABLE CHEST CLINICAL INDICATION: Chest pain TECHNIQUE: Portable AP COMPARISON: 09/05/2019 FINDINGS: Exam quality: EKG leads obscure small portions of the chest. The heart and mediastinum are normal. Atelectasis is noted at the right lung base. There is no consolidation. Costophrenic angles are sharp. Right shoulder arthroplasty is noted. IMPRESSION: Minor atelectasis at the right lung base Report Dictated on Workstation: [id number] --- Final --- Dictating Physician: MD CHAPMAN JEFFREY Signed Date and Time: 09/15/2019 2:43 am Signed by: MD CHAPMAN JEFFREY Transcribed Date and Time: 09/15/2019 2:44 [place], [place] CBCon 09-09-2019 Erythrocyte distribution width (RBC) [Ratio] 15.2 % High 11.5 - 14.5 % [place], [place] Comment on above: Test Performed by [facility], [facility] [place] [address] Hematocrit (Bld) [Volume fraction] 37.8 % Low 40 - 52 % [place], [place] Comment on above: Test Performed by [facility], [facility] [place] [address] Hemoglobin (Bld) [Mass/Vol] 12.7 g/dL Low 13 - 18 g/dL [place], [place] Comment on above: Test Performed by [facility], [address] [place] [address] Interpretation and review of laboratory results Abnormal [place], [place] MCH (RBC) [Entitic mass] 28.9 pg 26 - 34 pg [place], [place] Comment on above: Test Performed by [facility], [address] [place] [address] MCHC (RBC) [Mass/Vol] 33.5 % 32 - 36 % [place], [place] Comment on above: Test Performed by [facility], [address] [facility] [place] [address] MCV (RBC) [Entitic vol] 86.2 fL 80 - 98 fL [place], [place] Comment on above: Test Performed by [facility], [facility] [place] [address] Platelet mean volume (Bld) [Entitic vol] 7.6 fL 7.4 - 10.4 fL [place], [place] Comment on above: Test Performed by [facility], [address] [place] [address] Platelets (Bld) [#/Vol] 266 10*3/uL 140 - 440 10*3/uL [place], [place] Comment on above: Test Performed by [facility], [facility] [place] [address] RBC (Bld) [#/Vol] 4.39 10*6/uL Low 4.4 - 5.9 10*6/uL [place] Comment on above: Test Performed by [facility], [address] [place] [address] WBC (Bld) [#/Vol] 9.5 10*3/uL 3.6 - 10.7 10*3/uL [place] Test Performed by [facility], [address] [place] [address] [place], [place] Comprehensive Metabolic Pane l w/ Reflex to MGon 09-09-2019 Albumin [Mass/Vol] 3.6 g/dL 3.5 - 5 g/dL [place], [place] Comment on above: Test Performed by [facility], [address] [place] [address] ALP [Catalytic activity/Vol] 87 U/L 38 - 126 U/L [place], [place] Comment on above: Test Performed by [facility], [facility] [place] [address] ALT [Catalytic activity/Vol] 50 U/L High 0 - 49 U/L [place] Comment on above: Test Performed by [facility], [facility] [place] [address] The ALT test is performed by an updated assay method. Please note that the reference intervals have been changed and are now sex specific. Anion gap [Moles/Vol] 8 mmol/L [place], [place] Comment on above: Test Performed by [facility], [facility] [place] [address] AST [Catalytic activity/Vol] 40 U/L 15 - 46 U/L [place] Comment on above: Test Performed by [facility], [facility] [place] [address] Bilirubin Ql (U) 1.4 mg/dL High 0.2 - 1.3 mg/dL [place], [place] Comment on above: Test Performed by [facility], [facility] [place] [address] Calcium [Mass/Vol] 8.8 mg/dL 8.4 - 10. 4 mg/dL [place] Comment on above: Test Performed by [facility], [facility] [place] [address] Chloride [Moles/Vol] 106 mmol/L 98 - 10 7 mmol/L [place] Comment on above: Test Performed by [facility], [facility] [place] [address] CO2 [Moles/Vol] 25 mmol/L 22 - 30 mmol/L [place] Comment on above: Test Performed by [facility], [facility] [place] [address] Creatinine [Mass/Vol] 1.03 mg/dL 0.52 - 1.25 mg/dL [place] Comment on above: Test Performed by [facility], [facility] [place] [address] EGFR IF NonAfrican Guinean >60.0 >60 mL/min [place] Comment on above: Test Performed by [facility], [facility] [place] [address] Source- MDRD equation with creatinine calibration to IDMS(NKDEP) eGFR not recommended for drug dose adjustment GFR/1.73 sq M predicted among blacks MDRD (S/P/Bld) [Vol rate/Area] mL/min/{1.73_m2} >60 mL/min [place] Comment on above: Test Performed by [facility], [facility] [place] [address] Glucose [Mass/Vol] 111 mg/dL High 70 - 100 mg/dL [place], [place] Comment on above: Test Performed by [facility], [facility] [place] [address] Interpretation and review of laboratory results Abnormal [place] Potassium [Moles/Vol] 3.7 mmol/L 3.5 - 5.1 mmol/L [place] Comment on above: Test Performed by [facility], [facility] [place] [address] Protein [Mass/Vol] 6.4 g/dL 6.3 - 8.2 g/dL [place] Comment on above: Test Performed by [facility], [facility] [place] [address] Sodium [Moles/Vol] 140 mmol/L 135 - 145 mmol/L [place] Urea nitrogen [Mass/Vol] 23 mg/dL High 7 - 20 mg/dL [place] Comment on above: Test Performed by [facility], [facility] [place] [address] Test Performed by [facility], [facility] [place] [address] [place], [place] EKG 12 Leadon 09-09-2019 [place], [facility] Incoming Cardiology [facility] - 09/09/2019 1:50 PM EDT [facility] Test Date: 2019-09-06 Pat Name: Shannon Olson Department: [id number] Room: [facility] Gender: M 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: YOLANDA : 1955 Requested By: YEMI SOUTH Order Number: [id number] Reading MD: Jeremy Chase Measurements Intervals [place] Rate: 95 P: SD: QRS: -24 QRSD: 175 T: 27 QT: 486 QTc: 611 Interpretive Statements Atrial fibrillation Ventricular premature complex Left bundle branch block Electronically Signed On 09-09-2019 13:49:23 EDT by [facility] Test Date: 2019-09-06 Pat Name: Shannon Olson Department: [facility] Room: [facility] Gender: M 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 [address] Calcium [Mass/Vol] 9.0 mg/dL 8.4 - 10. 4 mg/dL [place] Comment on above: Test Performed by [facility], [facility] [place] [address] Chloride [Moles/Vol] 106 mmol/L 98 - 10 7 mmol/L [place] Comment on above: Test Performed by [facility], [facility] [place] [address] CO2 [Moles/Vol] 25 mmol/L 22 - 30 mmol/L [place] Comment on above: Test Performed by [facility], [facility] [place] [address] Creatinine [Mass/Vol] 1.18 mg/dL 0.52 - 1.25 mg/dL [place] Comment on above: Test Performed by [facility], [facility] [place] [address] EGFR IF NonAfrican Guinean >60.0 >60 mL/min [place], [place] Comment on above: Test Performed by [facility] [employer] [facility], [address] [place] [id number] Source- MDRD equation with creatinine calibration to IDMS(NKDEP) eGFR not recommended for drug dose adjustment GFR/1.73 sq M predicted among blacks MDRD (S/P/Bld) [Vol rate/Area] mL/min/{1.73_m2} >60 mL/min [place] Comment on above: Test Performed by [employer] [facility], [address] [place] [address] Glucose [Mass/Vol] 100 mg/dL 70 - 100 mg/dL [place], [place] Comment on above: Test Performed by [employer] [facility], [address] [place] [address] Interpretation and review of laboratory results Abnormal [place] Potassium [Moles/Vol] 4.0 mmol/L 3.5 - 5.1 mmol/L [place] Comment on above: Test Performed by [employer], [address] [place] [address] Sodium [Moles/Vol] 137 mmol/L 135 - 145 mmol/L [place], [place] Urea nitrogen [Mass/Vol] 26 mg/dL High 7 - 20 mg/dL [place], [place] Comment on above: Test Performed by [facility] [employer] [facility], [address] [place] [id number] Test Performed by [employer] [facility], [address] [place] [address] Diagnostic Cardiac Refrigerator Glazier Procedureon 09-08-2019 [facility] CARD[facility]HE[facility] Patient: Shannon Olson Procedure Date: 09/08/2019 : 1955 Age: 63 Gender: M Patient Type: Outpatient Procedure physician: George Reed MD Fellow: Referring Physician: Miryam Casas INDICATIONS: Positive stress test, unspecified. Procedures performed: # Right coronary angiography. # Left coronary angiography. # Left heart catheterization. # Diagnostic IVUS examination. # Percutaneous intervention on the 95% restenosis in the distal right coronary. Balloon angioplasty. # Percutaneous intervention on the 100% stenosis in the RCA posterolateral extension. Balloon angioplasty. Balloon angioplasty. SUMMARY: 1. Mr. Olson is a very pleasant 63yo M with h/o multiple PCI who presents with chest pain and positive stress test in the RCA territory. LHC revealed severe distal RCA disease. Angioplasty only was performed with a 3.0mm NC balloon. No stent was placed due to multiple layers of stent in this territory. Continue clopidogrel, apixaban. 2. LAD: Prior intervention: stent in the proximal LAD. The stented segment is patent. Distal vessel lesion: There is a 70% stenosis. 3. 1st diagonal: Ostial lesion: There is a 60% stenosis. 4. Left circumflex: Prior intervention: stent in the proximal left circumflex. The stented segment is patent. 5. Right coronary: Prior intervention #1: stent in the distal RCA. Prior intervention #2: stent in the proximal RCA. Distal vessel lesion: The diagnostic study demonstrated a 95%restenosisin the previous stent #1. The distal vessel supplies a small vascular territory. The lesion is a likely culprit for the patient's abnormal stress test. Angioplasty was performed, with intravascular ultrasound, resulting in an improved angiographic appearance (see 1st lesion intervention). Following intervention, there is a residual 10% stenosis with JORDAN grade 3 flow (brisk flow). 6. RCA posterolateral extension: Prior intervention: stent. Lesion: The diagnostic study demonstrated a 100% stenosis in the previous stent. Angioplasty was performed, with intravascular ultrasound, resulting in an improved angiographic appearance (see 2nd lesion intervention). Following intervention, there is a residual 10% stenosis with JORDAN grade 3 flow (brisk flow). IMPRESSIONS: 1. Severe coronary artery disease as described, predominantly involving the RCA. 2. Successful angioplasty only of the distal RCA severe restenosis. RECOMMENDATIONS: 1. Patient management should include aggressive risk factor modification and a cardiac rehabilitation program. 2. Add optimal medical therapy of the patient's disease. HISTORY: PMH: Myocardial infarction. Risk factors: Hypertension. Dyslipidemia. Family history is significant for coronary artery disease. Medications: Aspirin. BRILINTA (180 load). Heparin. LABS, PRIOR TESTS, PROCEDURES, and SURGERY: Catheterization with coronary intervention (12/04/2014). PROCEDURE IN DETAIL: Study status: Cardiac cath: urgent. Consent: The risks, benefits, and alternatives to the procedure and sedation were explained to the patient and informed consent was obtained. Fluoroscop y time: Fluoroscopy time: 17.6 min. Fluoroscopy dose: Fluoroscopy dos e: 189.3 cGy. Location: Catheterization laboratory. PROCEDURE: 1. Initial setup. The patient was brought to the laboratory. A baseline ECG was recorded. Intravenous access was obtained. Surface ECG leads, blood pressure measurements, and pulse oximetric signals were monitored. 2. Skin preparation. The planned puncture sites were prepped and draped in the usual sterile manner. 3. Local anesthesia. 1% lidocaine was administered. 4. Right radial artery access. A 6Fr/10cm Glidesheath Slender sheath was advanced into the vessel. 5. Selective right coronary angiography. A 6Fr x 100cm Optitorque Radial TIG 4.0 catheter was advanced into the right coronary vessel ostium under fluoroscopic guidance. Contrast was injected. Images were obtained in multiple projections. 6. Selective left coronary angiography. The procedure was attempted using a 6Fr x 100cm Optitorque Radial TIG 4.0 catheter, but proper positioning could not be achieved, and the catheter was exchanged for a 5Fr x 100cm AL II catheter which was advanced into the left coronary vessel ostium under fluoroscopic guidance. Contrast was injected using 2 injections. Images were obtained in multiple projections. 7. Left heart catheterization. A catheter was advanced across the aortic valve to the left ventricle under fluoroscopic guidance. 8. Diagnostic intravascular ultrasound of the midright coronary artery. The vessel was entered, a .014 [employer] [place] IVUS catheter was advanced into position over the wire, and imaging was performed. 9. Angioplasty was performed on the stenosis in the 1st right posterolateral branch. See detailed description below (1st lesion intervention). 10. Angioplasty was performed on the stenosis in the distal right coronary artery. See detailed description below (2nd lesion intervention). 11. ACT was 247 sec. 12. Right radial artery hemostasis. Mechanical compression was applied. 1st lesion intervention: Percutaneous intervention on the 95% restenosis in the distal right coronary. Balloon angioplasty. A 2.5 mm (D) x 20 mm (L), NC Trek RX bal loon was employed. The balloon was placed across the lesion and given th ree inflations with a maximum inflation pressure of 18 patricio. 2nd lesion intervention: Percutaneous intervention on the 100% stenosis in the RCA posterolateral extension. 1. Balloon angioplasty. A 2.5 mm (D) x 20 mm (L), NC Trek RX balloon was employed. The balloon was placed across the lesion and given three inflations with a maximum inflation pressure of 22 patricio. 2. Balloon angioplasty. A 3.0mm x 20mm NC Trek RX balloon was employed. The balloon was placed across the lesion and given two inflations with a maximum inflation pressure of 20 particio. STUDY COMPLETION: The estimated blood loss was 10 ml. All catheters inserted during the procedure were removed. The patient tolerated the pr ocedure well and was discharged from the lab. There were no complication s. Administered medications: Midazolam, 1mg, IV, VERSED. Fentanyl, 2 5mcg, IV, FENTANYL. NITROGLYCERIN (IA), 200mcg, intra-arterially, NITRO GLYCERIN (IA). PLAVIX (600 Load), 600mg, PO, PLAVIX (600 Load). Hepari n, for a total dose of 8000units, IV, HEPARIN. Contrast: 1. ISOVUE 30 0MG/CC 180 ml (total dose). CORONARY ARTERIES: The coronary circulation is right dominant. The left main bifurcates normally into the LAD and circumflex. Left main: Minor luminal irregularities. LAD: Prior intervention: stent in the proximal LAD. The stented segment is patent. Proximal vessel lesion: There is a 40% stenosis. Mid-vessel lesion: There is a 30% stenosis. Distal vessel lesion: There is a 70% stenosis. 1st diagonal: Ostial lesion: There is a 60% stenosis. Left circumflex: Prior intervention: stent in the proximal left circumflex. The stented segment is patent. Mid-vessel lesion: There is a 30% stenosis. Distal vessel lesion: There is a 30% stenosis. Right coronary: Prior intervention #1: stent in the distal RCA. Prior intervention #2: stent in the proximal RCA. Distal vessel lesion: The d iagnostic study demonstrated a 95%restenosisin the previous stent #1. Th is lesion appears consistent with atherosclerotic disease. There is a fi lling defect consistent with thrombus. There is JORDAN grade 3 flow (brisk flow) across the lesion. The distal vessel supplies a small vascular te rritory. The lesion is a likely culprit for the patient's abnormal stres s test. Angioplasty was performed, with intravascular ultrasound, resul ting in an improved angiographic appearance (see 1st lesion intervention ). Following intervention, there is a residual 10% stenosis with JORDAN gr nabil 3 flow (brisk flow). There were no site complications. Proximal ves janeth lesion: There is a 30%restenosisin the previous stent #2. RCA posterolateral extension: Prior intervention: stent. Lesion: The diagnostic study demonstrated a 100% stenosis in the previous stent. Thi s lesion appears consistent with atherosclerotic disease. There is JORDAN grade 0 flow (no flow) across the lesion. The distal vessel supplies a s mall vascular territory. Angioplasty was performed, with intravascular ultrasound, resulting in an improved angiographic appearance (see 2nd le manuel intervention). Following intervention, there is a residual 10% sten osis with JORDAN grade 3 flow (brisk flow). There were no site complicatio ns. LEFT VENTRICLE: A recent ejection fraction by echocardiography is available. AORTIC VALVE: There is no stenosis. HEMODYNAMICS: + + + +Stage description +Condition1:Room Air -+ + + + +LV pressure s/d, ed +122/12, 17 + + + + +Arterial pressure s/d (m)+113/62 (82) + + + + Prepared and electronically signed by George Reed MD 09/08/2019:41 [facility] [place], [place] [facility] Incoming Cardiology Results From [facility] - 09/08/2019 2:41 PM EDT [facility] Patient: Shannon Olson Procedure Date: 09/08/2019 : 1955 Age: 63 Gender: M Patient Type: Outpatient Procedure physician: George Reed MD Fellow: Referring Physician: Miryam Casas INDICATIONS: Positive stress test, unspecified. Procedures performed: # Right coronary angiography. # Left coronary angiography. # Left heart catheterization. # Diagnostic IVUS examination. # Percutaneous intervention on the 95% restenosis in the distal right coronary. Balloon angioplasty. # Percutaneous intervention on the 100% stenosis in the RCA posterolateral extension. Balloon angioplasty. Balloon angioplasty. SUMMARY: 1. Mr. Olson is a very pleasant 63yo M with h/o multiple PCI who presents with chest pain and positive stress test in the RCA territory. C revealed severe distal RCA disease. Angioplasty only was performed with a 3.0mm NC balloon. No stent was placed due to multiple layers of stent in this territory. Continue clopidogrel, apixaban. 2. LAD: Prior intervention: stent in the proximal LAD. The stented segment is patent. Distal vessel lesion: There is a 70% stenosis. 3. 1st diagonal: Ostial lesion: There is a 60% stenosis. 4. Left circumflex: Prior intervention: stent in the proximal left circumflex. The stented segment is patent. 5. Right coronary: Prior intervention #1: stent in the distal RCA. Prior intervention #2: stent in the proximal RCA. Distal vessel lesion: The diagnostic study demonstrated a 95%restenosisin the previous stent #1. The distal vessel supplies a small vascular territory. The lesion is a likely culprit for the patient's abnormal stress test. Angioplasty was performed, with intravascular ultrasound, resulting in an improved angiographic appearance (see 1st lesion intervention). Following intervention, there is a residual 10% stenosis with JORDAN grade 3 flow (brisk flow). 6. RCA posterolateral extension: Prior intervention: stent. Lesion: The diagnostic study demonstrated a 100% stenosis in the previous stent. Angioplasty was performed, with intravascular ultrasound, resulting in an improved angiographic appearance (see 2nd lesion intervention). Following intervention, there is a residual 10% stenosis with JORDAN grade 3 flow (brisk flow). IMPRESSIONS: 1. Severe coronary artery disease as described, predominantly involving the RCA. 2. Successful angioplasty only of the distal RCA severe restenosis. RECOMMENDATIONS: 1. Patient management should include aggressive risk factor modification and a cardiac rehabilitation program. 2. Add optimal medical therapy of the patient's disease. HISTORY: PMH: Myocardial infarction. Risk factors: Hypertension. Dyslipidemia. Family history is significant for coronary artery disease. Medications: Aspirin. BRILINTA (180 load). Heparin. LABS, PRIOR TESTS, PROCEDURES, and SURGERY: Catheterization with coronary intervention (12/04/2014). PROCEDURE IN DETAIL: Study status: Cardiac cath: urgent. Consent: The risks, benefits, and alternatives to the procedure and sedation were explained to the patient and informed consent was obtained. Fluoroscop y time: Fluoroscopy time: 17.6 min. Fluoroscopy dose: Fluoroscopy dos e: 189.3 cGy. Location: Catheterization laboratory. PROCEDURE: 1. Initial setup. The patient was brought to the laboratory. A baseline ECG was recorded. Intravenous access was obtained. Surface ECG leads, blood pressure measurements, and pulse oximetric signals were monitored. 2. Skin preparation. The planned puncture sites were prepped and draped in the usual sterile manner. 3. Local anesthesia. 1% lidocaine was administered. 4. Right radial artery access. A 6Fr/10cm Glidesheath Slender sheath was advanced into the vessel. 5. Selective right coronary angiography. A 6Fr x 100cm Optitorque Radial TIG 4.0 catheter was advanced into the right coronary vessel ostium under fluoroscopic guidance. Contrast was injected. Images were obtained in multiple projections. 6. Selective left coronary angiography. The procedure was attempted using a 6Fr x 100cm Optitorque Radial TIG 4.0 catheter, but proper positioning could not be achieved, and the catheter was exchanged for a 5Fr x 100cm AL II catheter which was advanced into the left coronary vessel ostium under fluoroscopic guidance. Contrast was injected using 2 injections. Images were obtained in multiple projections. 7. Left heart catheterization. A catheter was advanced across the aortic valve to the left ventricle under fluoroscopic guidance. 8. Diagnostic intravascular ultrasound of the midright coronary artery. The vessel was entered, a .014 [facility] [place] IVUS catheter was advanced into position over the wire, and imaging was performed. 9. Angioplasty was performed on the stenosis in the 1st right posterolateral branch. See detailed description below (1st lesion intervention). 10. Angioplasty was performed on the stenosis in the distal right coronary artery. See detailed description below (2nd lesion intervention). 11. ACT was 247 sec. 12. Right radial artery hemostasis. Mechanical compression was applied. 1st lesion intervention: Percutaneous intervention on the 95% restenosis in the distal right coronary. Balloon angioplasty. A 2.5 mm (D) x 20 mm (L), NC [employer] RX bal loon was employed. The balloon was placed across the lesion and given th ree inflations with a maximum inflation pressure of 18 patricio. 2nd lesion intervention: Percutaneous intervention on the 100% stenosis in the RCA posterolateral extension. 1. Balloon angioplasty. A 2.5 mm (D) x 20 mm (L), NC Trek RX balloon was employed. The balloon was placed across the lesion and given three inflations with a maximum inflation pressure of 22 patricio. 2. Balloon angioplasty. A 3.0mm x 20mm NC [employer] RX balloon was employed. The balloon was placed across the lesion and given two inflations with a maximum inflation pressure of 20 patricio. STUDY COMPLETION: The estimated blood loss was 10 ml. All catheters inserted during the procedure were removed. The patient tolerated the pr ocedure well and was discharged from the lab. There were no complication s. Administered medications: Midazolam, 1mg, IV, VERSED. Fentanyl, 2 5mcg, IV, FENTANYL. NITROGLYCERIN (IA), 200mcg, intra-arterially, NITRO GLYCERIN (IA). PLAVIX (600 Load), 600mg, PO, PLAVIX (600 Load). Hepari n, for a total dose of 8000units, IV, HEPARIN. Contrast: 1. ISOVUE 30 0MG/CC 180 ml (total dose). CORONARY ARTERIES: The coronary circulation is right dominant. The left main bifurcates normally into the LAD and circumflex. Left main: Minor luminal irregularities. LAD: Prior intervention: stent in the proximal LAD. The stented segment is patent. Proximal vessel lesion: There is a 40% stenosis. Mid-vessel lesion: There is a 30% stenosis. Distal vessel lesion: There is a 70% stenosis. 1st diagonal: Ostial lesion: There is a 60% stenosis. Left circumflex: Prior intervention: stent in the proximal left circumflex. The stented segment is patent. Mid-vessel lesion: There is a 30% stenosis. Distal vessel lesion: There is a 30% stenosis. Right coronary: Prior intervention #1: stent in the distal RCA. Prior intervention #2: stent in the proximal RCA. Distal vessel lesion: The d iagnostic study demonstrated a 95%restenosisin the previous stent #1. Th is lesion appears consistent with atherosclerotic disease. There is a fi lling defect consistent with thrombus. There is JORDAN grade 3 flow (brisk flow) across the lesion. The distal vessel supplies a small vascular te rritory. The lesion is a likely culprit for the patient's abnormal stres s test. Angioplasty was performed, with intravascular ultrasound, resul ting in an improved angiographic appearance (see 1st lesion intervention ). Following intervention, there is a residual 10% stenosis with JORDAN gr nabil 3 flow (brisk flow). There were no site complications. Proximal ves janeth lesion: There is a 30%restenosisin the previous stent #2. RCA posterolateral extension: Prior intervention: stent. Lesion: The diagnostic study demonstrated a 100% stenosis in the previous stent. Thi s lesion appears consistent with atherosclerotic disease. There is JORDAN grade 0 flow (no flow) across the lesion. The distal vessel supplies a s mall vascular territory. Angioplasty was performed, with intravascular ultrasound, resulting in an improved angiographic appearance (see 2nd le manuel intervention). Following intervention, there is a residual 10% sten osis with JORDAN grade 3 flow (brisk flow). There were no site complicatio ns. LEFT VENTRICLE: A recent ejection fraction by echocardiography is available. AORTIC VALVE: There is no stenosis. 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: [facility] : 1955 Requested By: MIGUEL CHANG Order Number: [id number] Chetan ALVARADO: Peña [employer] Measurements Intervals [place] Rate: 61 P: 42 SD: 177 QRS: 5 QRSD: 115 T: 27 QT: 455 QTc: 459 Interpretive Statements Sinus rhythm Left ventricular hypertrophy Inferior infarct, old Electronically Signed On 09-08-2019 15:53:33 EDT by Peña [facility] [place] [facility] Test Date: 2019-09-07 Pat Name: Shannon Olson Department: 1A5W Room: 30 Gender: M 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: [facility] : 1955 Requested By: MIGUEL CHANG Order Number: [id number] Chetan ALVARADO: [employer] Measurements Intervals [place] Rate: 61 P: 42 SD: 177 QRS: 5 QRSD: 115 T: 27 QT: 455 QTc: 459 Interpretive Statements Sinus rhythm Left ventricular hypertrophy Inferior infarct, old Electronically Signed On 09-08-2019 15:53:33 EDT by Peña [facility], [place] Echo Cardiac Stress Test Goldieshyla carmichael 09-08-2019 STRESS ECHOCARDIOGRA M Nino Protocol PATIENT: Shannon Olson STUDY DATE: 09/08/2019 : 1955 AGE: 63 HT/WT: 188 cm (74 119.8 kg (263.5 in) lb) GENDER: M BP: 138 / 80 LOCATION: [facility] PATIENT Observation main STATUS: *ORDERING PHYSICIAN: * Zoie Gonzales MD *SUPERVISING PHYSICIAN: * Tree *RN: Soco Salazar MD *READING PHYSICIAN: Humberto Leavitt *[employer]: Humberto Rogel RDCS, MD Coby AE, CCT, [facility] INDICATIONS: Chest pain. HISTORY: Dyslipidemia. Chronic obstructive pulmonary disease. Myocardial infarction. Family history of cardiovascular disease. Chest Pain/ discomfort with exertion. Hypertension treated The last beta delia was taken by the patient on 09/07/2019 08:48 AM. Paroxysmal atrial fibrillation. Medications: Metoprolol (Lopressor, Toprol). Furosemide (Lasix). Clopidogrel (Plavix). Amlodipine (Norvasc). Ezetimibe (Zetia). Lisinopril (Zestril). Amiodarone (Cordarone). Apixaban (Eliquis). Allergies: Penicillin allergy. Patient is NPO per policy. Hemoglobin, potassium and/or troponin x2 are within policy guidelines Catheterization (2016). There was a stenosis which was treated with a stent. Catheterization (2018). CONCLUSIONS SUMMARY: 1. Left ventricle: Systolic function is [...] shows worsening with stress, indicating stress-induced ischemia. STUDY DATA: Stress echocardiogram. Procedure: Initial setup. A baseline ECG was recorded. Surface ECG leads and blood pressure measurements were monitored. Image quality was suboptimal. The study was technically limited due to poor acoustic window availability, body habitus, and respiratory interference. Intravenous imaging enhancement (Definity) was administered. Definity lot #: [id number]. Treadmill exercise testing was performed using the Nino protocol. The patient exercised for 6 min 20 sec, to a maximal work rate of 7.4 mets. Exercise was terminated due to fatigue. Post-stress images were obtained within 90 seconds of peak stress. Transthoracic stress echocardiography. Images were captured at baseline and peak exercise. Exercise was terminated when the patient's Deng scale was 17. Limited 2D and color flow Doppler images were acquired and archived for permanent storage and are available for subsequent review. Study status: Routine. Patient status: Observation. Pre pain assessment is 0 out of 10. Post pain assessment is 0 out of 10. Location: Echo laboratory. Consent: The procedure was reviewed with the patient and the patient voices understanding. Study completion: The patient tolerated the procedure well. There were no complications. Discharge: Discharge instructions given The patient was transferred to the telemetry [facility]. FINDINGS LEFT VENTRICLE: The cavity size is normal. Wall thickness is mildly increased. Systolic function is normal by the biplane method of disks. The estimated ejection fraction is 59%. BASELINE ECG: Normal. STRESS PROTOCOL: + +--+--------- ---+ + +Stage +HR+BP +Symptoms + + +--+--------- ---+ + +Rest +57+138/80 (99) +No symptoms.+ + +--+--------- ---+ + +Peak stress +96+178/78 (111)+No symptoms.+ + +--+--------- ---+ + +Recovery +77+158/65 (96) +No symptoms.+ + +--+--------- ---+ + +Late recovery+68+138/72 (94) +No symptoms.+ + +--+--------- ---+ + STRESS RESULTS: There is an appropriate blood pressure response to stress. The rate-pressure product for the peak heart rate and blood pressure was 62320 mm Hg/min. Stress testing did not produce any symptoms suggestive of coronary artery disease. Peak heart rate during stress was 96 bpm (61% of maximal predicted heart rate). The maximal predicted heart rate was 157 bpm.The target heart rate was not achieved. The heart rate recovery at one minute is normal. The heart rate at 1 minute into recovery was 77 bpm. The heart rate response to stress was inadequate. STRESS ECG: Ectopy with left bundle branch block aberrancy. The stress ECG is nondiagnostic due to a rate related left bundle branch block. Ross scoring: exercise time of 6.5 min; maximum ST deviation of 0 mm; no angina; resulting score is 6.5. This score predicts a low risk of cardiac events. Rest: LV size is normal. LV global systolic function is at the lower limits of normal. Mild hypokinesis of the basal and mid inferoseptal LV myocardium. Exercise: Severe hypokinesis of the basal and mid inferoseptal LV myocardium. STRESS ECHO RESULTS: The basal and mid inferoseptal wall shows worsening with stress, indicating stress-induced ischemia. Measurements Value 09/07/2019 Reference Ascending aorta ID, A-P, S 3.3 cm 4.2 --------- Ascending aorta ID/bsa, A-P, 1.3 cm/m^2 1.7 --------- S Left ventricle Value 09/07/2019 Reference LV ID, ED 5.4 cm 4.2 - 5.8 LV ID, ES (H) 4.3 cm 2.5 - 4.0 LV ID/bsa, ED (L) 2.1 cm/m^2 2.2 - 3.0 LV ID/bsa, ES 1.7 cm/m^2 1.3 - 2.1 LV PW thickness, ED (H) 1.4 cm 0.6 - 1.0 LV PW/LV ID ratio, ED 0.27 --------- LV wall mass (H) 348 g 96 - 200 LV wall mass/bsa (H) 137 g/m^2 50 - 102 Stroke volume/bsa, 1-p A2C 35.2 ml/m^2 --------- LV end-diastolic volume, 1-p (H) 216 ml 69 - 185 A4C LV end-systolic volume, 1-p 73 ml 22 - 78 A4C LV end-diastolic volume, 2-p (H) 192 ml 62 - 150 LV end-systolic volume, 2-p (H) 78 ml 21 - 61 LV ejection fraction, 2-p 59 % 52 - 72 Ventricular septum Value 09/07/2019 Reference IVS thickness, ED (H) 1.5 cm 0.6 - 1.0 LVOT Value 09/07/2019 Reference LVOT ID, A-P 2.1 cm --------- Legend: (L) and (H) miguel values outside specified reference range. Electronically signed by Tree Tenorio MD 09/08/2019 10:24 Prior Signatures: [facility], [facility] Incoming Cardiology Results From [facility] - 09/08/2019 10:24 AM EDT STRESS ECHOCARDIOGRAM Nino Protocol PATIENT: Shannon Olson STUDY DATE: 09/08/2019 : 1955 AGE: 63 HT/WT: 188 cm (74 119.8 kg (263.5 in) lb) GENDER: M BP: 138 / 80 LOCATION: [facility] PATIENT Observation main STATUS: *ORDERING PHYSICIAN: * Zoie Gonzales MD *SUPERVISING PHYSICIAN: * Tree *RN: * Soco Mora MD *READING PHYSICIAN: * Tree *[employer]: * Coby Douglas RDCS, MD , [facility], [facility] INDICATIONS: Chest pain. HISTORY: Dyslipidemia. Chronic obstructive pulmonary disease. Myocardial infarction. Family history of cardiovascular disease. Chest Pain/ discomfort with exertion. Hypertension treated The last beta delia was taken by the patient on 09/07/2019 08:48 AM. Paroxysmal atrial fibrillation. Medications: Metoprolol (Lopressor, Toprol). Furosemide (Lasix). Clopidogrel (Plavix). Amlodipine (Norvasc). Ezetimibe (Zetia). Lisinopril (Zestril). Amiodarone (Cordarone). Apixaban (Eliquis). Allergies: Penicillin allergy. Patient is NPO per policy. Hemoglobin, potassium and/or troponin x2 are within policy guidelines Catheterization (2016). There was a stenosis which was treated with a stent. Catheterization (2018). CONCLUSIONS SUMMARY: 1. Left ventricle: Systolic function is [...] shows worsening with stress, indicating stress-induced ischemia. STUDY DATA: Stress echocardiogram. Procedure: Initial setup. A baseline ECG was recorded. Surface ECG leads and blood pressure measurements were monitored. Image quality was suboptimal. The study was technically limited due to poor acoustic window availability, body habitus, and respiratory interference. Intravenous imaging enhancement (Definity) was administered. Definity lot #: [id number]. Treadmill exercise testing was performed using the Nino protocol. The patient exercised for 6 min 20 sec, to a maximal work rate of 7.4 mets. Exercise was terminated due to fatigue. Post-stress images were obtained within 90 seconds of peak stress. Transthoracic stress echocardiography. Images were captured at baseline and peak exercise. Exercise was terminated when the patient's Deng scale was 17. Limited 2D and color flow Doppler images were acquired and archived for permanent storage and are available for subsequent review. Study status: Routine. Patient status: Observation. Pre pain assessment is 0 out of 10. Post pain assessment is 0 out of 10. Location: Echo laboratory. Consent: The procedure was reviewed with the patient and the patient voices understanding. Study completion: The patient tolerated the procedure well. There were no complications. Discharge: Discharge instructions given The patient was transferred to the telemetry [facility]. FINDINGS LEFT VENTRICLE: The cavity size is normal. Wall thickness is mildly increased. Systolic function is normal by the biplane method of disks. The estimated ejection fraction is 59%. BASELINE ECG: Normal. STRESS PROTOCOL: + +--+--------- ---+ + +Stage +HR+BP +Symptoms + + +--+--------- ---+ + +Rest +57+138/80 (99) +No symptoms.+ + +--+--------- ---+ + +Peak stress +96+178/78 (111)+No symptoms.+ + +--+--------- ---+ + +Recovery +77+158/65 (96) +No symptoms.+ + +--+--------- ---+ + +Late recovery+68+138/72 (94) +No symptoms.+ + +--+--------- ---+ + STRESS RESULTS: There is an appropriate blood pressure response to stress. The rate-pressure product for the peak heart rate and blood pressure was 14696 mm Hg/min. Stress testing did not produce any symptoms suggestive of coronary artery disease. Peak heart rate during stress was 96 bpm (61% of maximal predicted heart rate). The maximal predicted heart rate was 157 bpm.The target heart rate was not achieved. The heart rate recovery at one minute is normal. The heart rate at 1 minute into recovery was 77 bpm. The heart rate response to stress was inadequate. STRESS ECG: Ectopy with left bundle branch block aberrancy. The stress ECG is nondiagnostic due to a rate related left bundle branch block. Ross scoring: exercise time of 6.5 min; maximum ST deviation of 0 mm; no angina; resulting score is 6.5. This score predicts a low risk of cardiac events. Rest: LV size is normal. LV global systolic function is at the lower limits of normal. Mild hypokinesis of the basal and mid inferoseptal LV myocardium. Exercise: Severe hypokinesis of the basal and mid inferoseptal LV myocardium. STRESS ECHO RESULTS: The basal and mid inferoseptal wall shows worsening with stress, indicating stress-induced ischemia. Measurements Value 09/07/2019 Reference Ascending aorta ID, A-P, S 3.3 cm 4.2 --------- Ascending aorta ID/bsa, A-P, 1.3 cm/m^2 1.7 --------- S Left ventricle Value 09/07/2019 Reference LV ID, ED 5.4 cm 4.2 - 5.8 LV ID, ES (H) 4.3 cm 2.5 - 4.0 LV ID/bsa, ED (L) 2.1 cm/m^2 2.2 - 3.0 LV ID/bsa, ES 1.7 cm/m^2 1.3 - 2.1 LV PW thickness, ED (H) 1.4 cm 0.6 - 1.0 LV PW/LV ID ratio, ED 0.27 --------- LV wall mass (H) 348 g 96 - 200 LV wall mass/bsa (H) 137 g/m^2 50 - 102 Stroke volume/bsa, 1-p A2C 35.2 ml/m^2 --------- LV end-diastolic volume, 1-p (H) 216 ml 69 - 185 A4C LV end-systolic volume, 1-p 73 ml 22 - 78 A4C LV end-diastolic volume, 2-p (H) 192 ml 62 - 150 LV end-systolic volume, 2-p (H) 78 ml 21 - 61 LV ejection fraction, 2-p 59 % 52 - 72 Ventricular septum Value 09/07/2019 Reference IVS thickness, ED (H) 1.5 cm 0.6 - 1.0 LVOT Value 09/07/2019 Reference LVOT ID, A-P 2.1 cm --------- Legend: (L) and (H) miguel values outside specified reference range. Electronically signed by Tree Tenorio MD 09/08/2019 10:24 Prior Signatures: [place], [place] [facility]2019 TRANSESOPHAGEAL ECHOCARDIOGRAM PATIENT: Shannon Olson STUDY DATE: 09/07/2019 : 1955 AGE: 63 HT/WT: 188 cm (74 118.8 kg (261.4 in) lb) GENDER: M BP: 134 / 77 LOCATION: [facility] PATIENT Observation main STATUS: *ORDERING PHYSICIAN: * Subhash Arrieta *READING PHYSICIAN: * Miguel Chang MD, *LAB[employer]: * Nathalia Kramer [facility] INDICATIONS: Atrial Fibrillation. CONCLUSIONS SUMMARY: 1. Left ventricle: Systolic function is mildly decreased by visual assessment. Difficult to assess due to tachycardia, including runs of wide complex (aberrant AF most likely). The estimated ejection fraction is 40-45%. 2. Regional wall motion abnormality: Akinesis of the basal inferior myocardium. 3. Left atrium: There is no evidence of a thrombus in the atrial cavity or appendage. 4. No significant valve disease. RECOMMENDATIONS: The patient proceeded to successful DC cardioversion, reported separately. STUDY DATA: Transesophageal echocardiography was performed. Procedure: Initial setup. Surface ECG leads, blood pressure measurements, and pulse oximetric signals were monitored. Image quality was excellent. A transesophageal probe was inserted by the attending cardiologistwithout difficulty. Complete 2D, complete spectral Doppler, and color flow Doppler images were acquired and archived for permanent storage and are available for subsequent review. Study status: Routine. Patient status: Observation. Location: [facility] laboratory. Consent: The risks, benefits, and alternatives to the procedure were explained to the patient and informed consent was obtained. Administered medications: Propofol. FINDINGS LEFT VENTRICLE: The cavity size is normal. Wall thickness is moderately increased. There is moderate concentric hypertrophy. Systolic function is mildly decreased by visual assessment. Difficult to assess due to tachycardia, including runs of wide complex (aberrant AF most likely). The estimated ejection fraction is 40-45%. Regional wall motion abnormalities: Akinesis of the basal inferior myocardium. RIGHT VENTRICLE: The cavity size is normal. Systolic function is mildly decreased. VENTRICULAR SEPTUM: There is no evidence of a ventricular septal defect. LEFT ATRIUM: The atrium is moderately dilated. There is no evidence of a thrombus in the atrial cavity or appendage. There is mild spontaneous echo contrast (smoke). The appendage is of normal size. Emptying velocity is reduced. RIGHT ATRIUM: The atrium is normal in size. ATRIAL SEPTUM: No evidence of patent foramen ovale or atrial septal defect. MITRAL VALVE: Structurally normal valve. Leaflet separation is normal. Doppler: There is trivial, less than 1+ regurgitation. AORTIC VALVE: Structurally normal valve. Trileaflet. Cusp separation is normal. Doppler: There is no stenosis. There is no regurgitation. TRICUSPID VALVE: Structurally normal valve. Leaflet separation is normal. Doppler: There is trivial, less than 1+ regurgitation. PULMONIC VALVE: No thickening. Cusp separation is normal. Doppler: There is trivial, less than 1+ regurgitation. AORTA: There is no atheroma. There is no evidence for aneurysm. There is no evidence for dissection. Aortic root: The aortic root is not dilated. PULMONARY ARTERY: The main pulmonary artery is normal in size. PERICARDIUM: There is no pericardial effusion. SYSTEMIC VEINS: Superior vena cava: The vessel is normal in size. Measurements Value Ascending aorta ID, A-P, S 4.2 cm Ascending aorta ID/bsa, A-P, S 1.7 cm/m^2 Legend: (L) and (H) miguel values outside specified reference range. Electronically signed by Miguel Chang MD, [facility] 09/07/2019 14:39 Prior Signatures: [facility], [facility] Incoming Cardiology Results From [employer] - 09/07/2019 2:39 PM EDT TRANSESOPHAGEAL ECHOCARDIOGRAM PATIENT: Shannon Olson STUDY DATE: 09/07/2019 : 1955 AGE: 63 HT/WT: 188 cm (74 118.8 kg (261.4 in) lb) GENDER: M BP: 134 / 77 LOCATION: [facility] PATIENT Observation main STATUS: *ORDERING PHYSICIAN: * Subhash Arireta *READING PHYSICIAN: * Miguel Chang MD, *[employer]: * Nathalia Fonsecaalbinaniru [facility] INDICATIONS: Atrial Fibrillation. CONCLUSIONS SUMMARY: 1. Left ventricle: Systolic function is mildly decreased by visual assessment. Difficult to assess due to tachycardia, including runs of wide complex (aberrant AF most likely). The estimated ejection fraction is 40-45%. 2. Regional wall motion abnormality: Akinesis of the basal inferior myocardium. 3. Left atrium: There is no evidence of a thrombus in the atrial cavity or appendage. 4. No significant valve disease. RECOMMENDATIONS: The patient proceeded to successful DC cardioversion, reported separately. STUDY DATA: Transesophageal echocardiography was performed. Procedure: Initial setup. Surface ECG leads, blood pressure measurements, and pulse oximetric signals were monitored. Image quality was excellent. A transesophageal probe was inserted by the attending cardiologistwithout difficulty. Complete 2D, complete spectral Doppler, and color flow Doppler images were acquired and archived for permanent storage and are available for subsequent review. Study status: Routine. Patient status: Observation. Location: [facility] laboratory. Consent: The risks, benefits, and alternatives to the procedure were explained to the patient and informed consent was obtained. Administered medications: Propofol. FINDINGS LEFT VENTRICLE: The cavity size is normal. Wall thickness is moderately increased. There is moderate concentric hypertrophy. Systolic function is mildly decreased by visual assessment. Difficult to assess due to tachycardia, including runs of wide complex (aberrant AF most likely). The estimated ejection fraction is 40-45%. Regional wall motion abnormalities: Akinesis of the basal inferior myocardium. RIGHT VENTRICLE: The cavity size is normal. Systolic function is mildly decreased. VENTRICULAR SEPTUM: There is no evidence of a ventricular septal defect. LEFT ATRIUM: The atrium is moderately dilated. There is no evidence of a thrombus in the atrial cavity or appendage. There is mild spontaneous echo contrast (smoke). The appendage is of normal size. Emptying velocity is reduced. RIGHT ATRIUM: The atrium is normal in size. ATRIAL SEPTUM: No evidence of patent foramen ovale or atrial septal defect. MITRAL VALVE: Structurally normal valve. Leaflet separation is normal. Doppler: There is trivial, less than 1+ regurgitation. AORTIC VALVE: Structurally normal valve. Trileaflet. Cusp separation is normal. Doppler: There is no stenosis. There is no regurgitation. TRICUSPID VALVE: Structurally normal valve. Leaflet separation is normal. Doppler: There is trivial, less than 1+ regurgitation. PULMONIC VALVE: No thickening. Cusp separation is normal. Doppler: There is trivial, less than 1+ regurgitation. AORTA: There is no atheroma. There is no evidence for aneurysm. There is no evidence for dissection. Aortic root: The aortic root is not dilated. PULMONARY ARTERY: The main pulmonary artery is normal in size. PERICARDIUM: There is no pericardial effusion. SYSTEMIC VEINS: Superior vena cava: The vessel is normal in size. Measurements Value Ascending aorta ID, A-P, S 4.2 cm Ascending aorta ID/bsa, A-P, S 1.7 cm/m^2 Legend: (L) and (H) miguel values outside specified reference range. Electronically signed by Miguel Chang MD, [facility] 09/07/2019 14:39 Prior Signatures: [place], [place] Basic Metabolic Panelon 08-22 Anion gap [Moles/Vol] 9 mmol/L [place], [place] Comment on above: Test Performed by [facility], [address] [place] [address] Calcium [Mass/Vol] 9.0 mg/dL 8.4 - 10. 4 mg/dL [place], [place] Comment on above: Test Performed by [facility], [address] [place] [address] Chloride [Moles/Vol] 109 mmol/L High 98 - 10 7 mmol/L [place] Comment on above: Test Performed by [facility], [facility] [place] [address] CO2 [Moles/Vol] 22 mmol/L 22 - 30 mmol/L [place] Comment on above: Test Performed by [facility], [facility] [place] [address] Creatinine [Mass/Vol] 0.84 mg/dL 0.52 - 1.25 mg/dL [place] Comment on above: Test Performed by [facility], [facility] [place] [address] EGFR IF NonAfrican Guinean >60.0 >60 mL/min [place] Comment on above: Test Performed by [facility], [facility] [place] [address] Source- MDRD equation with creatinine calibration to IDMS(NKDEP) eGFR not recommended for drug dose adjustment GFR/1.73 sq M predicted among blacks MDRD (S/P/Bld) [Vol rate/Area] mL/min/{1.73_m2} >60 mL/min [place] Comment on above: Test Performed by [facility], [address] [place] [address] Glucose [Mass/Vol] 104 mg/dL High 70 - 100 mg/dL [place] Comment on above: Test Performed by [facility], [facility] [place] [address] Interpretation and review of laboratory results Abnormal [place] Potassium [Moles/Vol] 3.6 mmol/L 3.5 - 5.1 mmol/L [place] Comment on above: Test Performed by [facility], [facility] [place] [address] Sodium [Moles/Vol] 139 mmol/L 135 - 145 mmol/L [place] Urea nitrogen [Mass/Vol] 20 mg/dL 7 - 20 mg/dL [place] Comment on above: Test Performed by [facility], [address] 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 : 1955 Requested By: ARI RUEDA Order Number: [id number] Reading MD: Luisa Blackburn Measurements Intervals [place] Rate: 108 P: SD: QRS: -5 QRSD: 199 T: 12 QT: 445 QTc: 597 Interpretive Statements Atrial fibrillation Left ventricular hypertrophy LBBB Baseline artifact Electronically Signed On 09-06-2019 9:04:11 EDT [facility] [employer] [facility] Test Date: 2019-09-05 Pat Name: Shannon Olson Department: [facility] Room: 1539 Gender: M 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: ROSIO : 1955 Requested By: ARI RUEDA Order Number: [id number] Reading MD: Luisa Blackburn Measurements Intervals [place] Rate: 108 P: SD: QRS: -5 QRSD: 199 T: 12 QT: 445 QTc: 597 Interpretive Statements Atrial fibrillation Left ventricular hypertrophy LBBB Baseline artifact Electronically Signed On 09-06-2019 9:04:11 EDT by [place] EKG 12 Lead - Chest Painon 0 09-06-2019 [place], [facility] Incoming Cardiology [facility] - 09/06/2019 9:04 AM EDT [facility] Test Date: 2019-09-05 Pat Name: Shannon Olson Department: [facility] Room: 1539 Gender: M 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: ROSIO : 1955 Requested By: ARI RUEDA Order Number: [id number] Reading MD: Luisa Nunezdcjacinta Measurements Intervals [place] Rate: 84 P: SD: QRS: 1 QRSD: 114 T: 15 QT: 394 QTc: 466 Interpretive Statements Atrial fibrillation Left ventricular hypertrophy Inferior infarct, old ST elevation, consider anterior injury Electronically Signed On 09-06-2019 9:03:02 EDT [facility] Test Date: 2019-09-05 Pat Name: Shannon Olson Department: [facility] Room: 1539 Gender: M 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: ROSIO : 1955 Requested By: ARI RUEDA Order Number: [id number] Reading MD: Luisa Nunezdcjacinta Measurements Intervals [place] Rate: 84 P: SD: QRS: 1 QRSD: 114 T: 15 QT: 394 QTc: 466 Interpretive Statements Atrial fibrillation Left ventricular hypertrophy Inferior infarct, old ST elevation, consider anterior injury Electronically Signed On 09-06-2019 9:03:02 EDT by [place] Magnesiumon 09-06-2019 Magnesium [Mass/Vol] 2.0 mg/dL 1.6 - 2 .3 mg/dL [place], [place] Otheron 09-06-2019 Test Performed by [place] [address] [employer] [address] TSH without Reflexon 020 TSH Qn 1.129 u[IU]/mL 0.465 - 4.68 u[IU]/mL [place] Test Performed by [facility], [facility] [employer] [address] Troponinon 09-06-2019 Troponin I.cardiac [Mass/Vol] 0.019 ng/mL 0 - 0.034 ng/mL [place] Comment on above: . Test Performed by [facility], [facility] [employer] [address] [place] Troponin I.cardiac [Mass/Vol] 0.028 ng/mL 0 - 0.034 ng/mL [place] Comment on above: . Test Performed by [facility], [facility] [place] [address] [place] Basic Metabolic Panelon 08-22 Anion gap [Moles/Vol] 9 mmol/L [place], [place] Comment on above: Test Performed by [facility], [address] [place] [address] Calcium [Mass/Vol] 9.0 mg/dL 8.4 - 10. 4 mg/dL [place] Comment on above: Test Performed by [facility], [facility] [place] [address] Chloride [Moles/Vol] 107 mmol/L 98 - 10 7 mmol/L [place] Comment on above: Test Performed by [facility], [facility] [place] [address] CO2 [Moles/Vol] 23 mmol/L 22 - 30 mmol/L [place] Comment on above: Test Performed by [facility], [facility] [place] [address] Creatinine [Mass/Vol] 0.96 mg/dL 0.52 - 1.25 mg/dL [place] Comment on above: Test Performed by [facility], [facility] [place] [address] EGFR IF NonAfrican Guinean >60.0 >60 mL/min [place] Comment on above: Test Performed by [employer] [facility], [facility] [place] [address] Source- MDRD equation with creatinine calibration to IDMS(NKDEP) eGFR not recommended for drug dose adjustment GFR/1.73 sq M predicted among blacks MDRD (S/P/Bld) [Vol rate/Area] mL/min/{1.73_m2} >60 mL/min [place] Comment on above: Test Performed by [employer] [facility], [facility] [place] [address] Glucose [Mass/Vol] 109 mg/dL High 70 - 100 mg/dL [place] Comment on above: Test Performed by [facility], [facility] [place] [address] Interpretation and review of laboratory results Abnormal [place] Potassium [Moles/Vol] 4.0 mmol/L 3.5 - 5.1 mmol/L [place] Comment on above: Test Performed by [facility], [facility] [place] [address] Sodium [Moles/Vol] 139 mmol/L 135 - 145 mmol/L [place] Urea nitrogen [Mass/Vol] 22 mg/dL High 7 - 20 mg/dL [place], [place] Comment on above: Test Performed by [facility], [address] [place] [address] Brain Natriuretic Peptideon 09-05-2019 Interpretation and review of laboratory results Abnormal [place], [place] Natriuretic peptide B (Bld) [Mass/Vol] 645 pg/mL High 0 - 125 pg/mL [place] CBC Auto Differentialon 08-22 Absolute Baso # 0.0 10*3/uL 0 - 0.2 10*3/uL [place], [place] Comment on above: Test Performed by [facility], [address] [place] [address] Absolute Neut # 8.0 10*3/uL High 1.8 - 7 10*3/uL [place], [place] Comment on above: Test Performed by [facility], [address] [place] [address] Basophils/100 WBC (Bld) 0.5 % 0 - 2 % [place] Comment on above: Test Performed by [facility], [facility] [place] [address] Eosinophils (Bld) [#/Vol] 0.0 10*3/uL 0 - 0.5 10*3/uL [place] Comment on above: Test Performed by [facility], [facility] [place] [address] Eosinophils/100 WBC (Bld) 0.2 % Low 1 - 6 % [place], [place] Comment on above: Test Performed by [facility], [address] [place] [address] Erythrocyte distribution width (RBC) [Ratio] 15.1 % High 11.5 - 14.5 % [place], [place] Comment on above: Test Performed by [facility], [facility] [place] [address] Granulocytes/100 WBC (Bld) 83.5 % High 40 - 80 % [place], [place] Comment on above: Test Performed by [facility], [facility] [place] [address] Hematocrit (Bld) [Volume fraction] 42.0 % 40 - 52 % [place], [place] Comment on above: Test Performed by [facility], [facility] [place] [address] Hemoglobin (Bld) [Mass/Vol] 14.1 g/dL 13 - 18 g/dL [place], [place] Comment on above: Test Performed by [facility], [facility] [place] [address] Interpretation and review of laboratory results Abnormal [place] Lymphocytes (Bld) [#/Vol] 0.9 10*3/uL Low 1 - 4.3 10*3/uL [place] Comment on above: Test Performed by [facility], [facility] [place] [address] Lymphocytes/100 WBC (Bld) 9.9 % Low 20 - 40 % [place], [place] Comment on above: Test Performed by [facility], [facility] [place] [address] MCH (RBC) [Entitic mass] 29.1 pg 26 - 34 pg [place], [place] Comment on above: Test Performed by [facility], [facility] [place] [address] MCHC (RBC) [Mass/Vol] 33.7 % 32 - 36 % [place], [place] Comment on above: Test Performed by [facility], [facility] [place] [address] MCV (RBC) [Entitic vol] 86.2 fL 80 - 98 fL [place], [place] Comment on above: Test Performed by [facility], [facility] [place] [address] Monocytes (Bld) [#/Vol] 0.6 10*3/uL 0 - 0.8 10*3/uL [place] Comment on above: Test Performed by [facility], [facility] [place] [address] Monocytes/100 WBC (Bld) 5.9 % 2 - 10 % [place] Comment on above: Test Performed by [facility], [facility] [place] [address] Platelet mean volume (Bld) [Entitic vol] 7.8 fL 7.4 - 10.4 fL [place] Comment on above: Test Performed by [facility], [facility] [place] [address] Platelets (Bld) [#/Vol] 255 10*3/uL 140 - 440 10*3/uL [place] Comment on above: Test Performed by [facility], [facility] [place] [address] RBC (Bld) [#/Vol] 4.87 10*6/uL 4.4 - 5.9 10*6/uL [place] Comment on above: Test Performed by [facility], [facility] [place] [address] WBC (Bld) [#/Vol] 9.6 10*3/uL 3.6 - 10.7 10*3/uL [place] Test Performed by [facility], [facility] [place] [address] [place] Magnesiumon 09-05-2019 Magnesium [Mass/Vol] 2.0 mg/dL 1.6 - 2 .3 mg/dL [place] Otheron 09-05-2019 Test Performed by [facility], [facility] [place] [address] [place] Test Performed by [facility], [facility] [place] [address] [place] Phosphoruson 09-05-2019 Phosphate [Mass/Vol] 3.1 mg/dL 2.5 - 4 .5 mg/dL [place] Troponinon 09-05-2019 Troponin I.cardiac [Mass/Vol] 0.025 ng/mL 0 - 0.034 ng/mL [place] Comment on above: . Test Performed by [facility], [address] [place] [address] [place] Troponin I.cardiac [Mass/Vol] 0.015 ng/mL 0 - 0.034 ng/mL [place] Comment on above: . XR CHEST PORTABLEon 09-05-19 20 [place], [facility] Incoming Radiology Results From [facility] - 09/05/2019 10:23 AM EDT Patient Name: SHANNON OLSON ---Diagnostic Radiology--- Exam Date/Time 09/05/2019 10:22:16 EDT Exam CR Chest Portable Ordering Physician MD RUEDA DOUGALAS R. Accession Number [id number] CPT4 Codes 97154 () Reason For Exam chest pain. extensive heart history Report Portable chest 09/05/2019: Clinical Information: Chest pain. Findings: A single AP portable view of the chest was obtained at 1018 hours. Comparison was made to the prior study 06/03/2017. The trachea is midline. The heart is not enlarged. No focal areas of consolidation or volume loss are seen. There are no pleural effusions. The pulmonary vasculature does not appear congested. The visualized bony structures are intact. Impression: No acute process. Report Dictated on Workstation: [id number] --- Final --- Dictated: 09/05/2019 10:21 am Dictating Physician: MD REED RISA Signed Date and Time: 09/05/2019 10:22 am Signed by: MD REED RISA Transcribed Date and Time: 09/05/2019 10:21 [place], [place] Patient Name: SHANNON OLSON ---Diagnostic Radiology--- Exam Date/Time 09/05/2019 10:22:16 EDT Exam CR Chest Portable Ordering Physician MD RUEDA DOUGALAS R. Accession Number [id number] CPT4 Codes 79614 () Reason For Exam chest pain. extensive heart history Report Portable chest 09/05/2019: Clinical Information: Chest pain. Findings: A single AP portable view of the chest was obtained at 1018 hours. Comparison was made to the prior study 06/03/2017. The trachea is midline. The heart is not enlarged. No focal areas of consolidation or volume loss are seen. There are no pleural effusions. The pulmonary vasculature does not appear congested. The visualized bony structures are intact. Impression: No acute process. Report Dictated on Workstation: [id number] --- Final --- Dictated: 09/05/2019 10:21 am Dictating Physician: MD REED RISA Signed Date and Time: 09/05/2019 10:22 am Signed by: MD REED RISA Transcribed Date and Time: 09/05/2019 10:21 [place], [place] .Auto Diffon 04-19-2019 Ammonia (P) [Mass/Vol] 0.70 10 3/mcL Normal 0.15-1.00 [facility] ([place]) Comment on above: Performed By: #### C AYAAN ALAS ANEU #### [place] [address] #### BMP, GFR #### [address] [address] Basophils (Bld) [#/Vol] 0.00 10 3/mcL Normal 0.00-0.19 [facility] ([place]) Comment on above: Performed By: #### AYAAN PLATA ANEU #### [place] [address] #### BMP, GFR #### [address] [address] Basophils/100 WBC (Bld) 0.0 % Normal 0.0-2.5 [facility] ([place]) Comment on above: Performed By: #### AYAAN PLATA, ANEU #### [place] [address] #### BMP, GFR #### [address] [address] Eosinophils (Bld) [#/Vol] 0.00 10 3/mcL Normal 0.00-0.40 [facility] ([place]) Comment on above: Performed By: #### AYAAN PLATA ANEU #### [place] [address] #### BMP, GFR #### [address] [address] Eosinophils/100 WBC (Bld) 0.0 % Normal 0.0-7.0 [facility] ([place]) Comment on above: Performed By: #### C BC, ADIFF, ANEU #### [address] [address] #### BMP, GFR #### [address] [address] Lymphocytes (Bld) [#/Vol] 0.40 10 3/mcL Low 0.77-3.85 [facility] ([place]) Comment on above: Performed By: #### C BC, ADIFF, ANEU #### [place] [address] #### BMP, GFR #### [address] [address] Lymphocytes/100 WBC (Bld) 2.6 % Low 10.0-50.0 [facility] ([place]) Comment on above: Performed By: #### C BC, ADIFF, ANEU #### [address] [address] #### BMP, GFR #### [address] [address] Monocytes/100 WBC (Bld) 4.6 % Normal 1.7-13.0 [facility] ([place]) Comment on above: Performed By: #### C BC, ADIFF, ANEU #### [place] [address] #### BMP, GFR #### [address] [address] Neutrophils/100 WBC (Bld) 92.8 % High 37.0-80.0 [facility] ([place]) Comment on above: Performed By: #### C BC, ADIFF, ANEU #### [address] [address] #### BMP, GFR #### [address] [address] .GFRon 04-19-2019 GFR 75 ml/min/1.73sqm Normal [facility] ([place]) Comment on above: Result Comment: GFR Population mean for , Non- Americans Ages 20-29 = 116 mL/min/1.73 sq.m. Ages 30-39 = 107 mL/min/1.73 sq.m. Ages 40-49 = 99 mL/min/1.73 sq.m. Ages 50-59 = 93 mL/min/1.73 sq.m. Ages 60-69 = 85 mL/min/1.73 sq.m. Ages 70+ = 75 mL/min/1.73 sq.m. Chronic Kidney Disease: Less than 60 mL/min/1.73 square meters End Stage Renal Disease: Less than 15 mL/min/1.73 square meters Performed By: #### C AYAAN ALAS, ANEU #### [address] [address] #### BMP, GFR #### [place] [address] GFR Non- 62 ml/min/1.73sqm Normal [facility] ([place]) Comment on above: Result Comment: GFR Population mean for , Non- Americans Ages 20-29 = 116 mL/min/1.73 sq.m. Ages 30-39 = 107 mL/min/1.73 sq.m. Ages 40-49 = 99 mL/min/1.73 sq.m. Ages 50-59 = 93 mL/min/1.73 sq.m. Ages 60-69 = 85 mL/min/1.73 sq.m. Ages 70+ = 75 mL/min/1.73 sq.m. Chronic Kidney Disease: Less than 60 mL/min/1.73 square meters End Stage Renal Disease: Less than 15 mL/min/1.73 square meters Performed By: #### C BCAYAAN, ANEU #### [address] [address] #### BMP, GFR #### [place] [id number] .NEUABSon 04-19-2019 Neutrophils (Bld) [#/Vol] 14.80 10 3/mcL High 2.85-6.16 [facility] ([place]) Comment on above: Performed By: #### C BC, ADIFF, ANEU #### [address] [address] #### BMP, GFR #### [address] [address] BMPon 04-19-2019 Calcium [Mass/Vol] 8.5 mg/dL Normal 8.4-10.2 [facility] ([place]) Comment on above: Performed By: #### C BC, ADIFF, ANEU #### [address] [address] #### BMP, GFR #### [address] [address] Chloride [Moles/Vol] 106 mmol/L Normal 98-107 [facility] ([place]) Comment on above: Performed By: #### C BC ADIFF, ANEU #### [place] [address] #### BMP, GFR #### [address] [address] CO2 [Moles/Vol] 27 mmol/L Normal 23-31 [facility] ([place]) Comment on above: Performed By: #### C BC, ADIFF, ANEU #### [address] [address] #### BMP, GFR #### [address] [address] Creatinine [Mass/Vol] 1.19 mg/dL Normal 0.70-1.30 [facility] ([place]) Comment on above: Performed By: #### C BC, ADIFF, ANEU #### [address] [address] #### BMP, GFR #### [address] [address] Electrolyte Balance 9.0 mEq/L Normal [facility] ([place]) Comment on above: Performed By: #### C BC, ADIFF, ANEU #### [address] [address] #### BMP, GFR #### [address] [address] Glucose [Mass/Vol] 148 mg/dL High 80-115 [facility] ([place]) Comment on above: Performed By: #### C BC, ADIFF, ANEU #### [address] [address] #### BMP, GFR #### [address] [address] Potassium [Moles/Vol] 4.2 mmol/L Normal 3.5-5.1 [facility] ([place]) Comment on above: Performed By: #### C BC ADIFF, ANEU #### [address] [address] #### BMP, GFR #### [address] [address] Sodium [Moles/Vol] 142 mmol/L Normal 136-145 [facility] ([place]) Comment on above: Performed By: #### C BC, ADIFF, ANEU #### [address] [address] #### BMP, GFR #### [address] [address] Urea nitrogen [Mass/Vol] 20 mg/dL High 7-18 [facility] ([place]) Comment on above: Performed By: #### C BC, ADIFF, ANEU #### [address] [address] #### BMP, GFR #### [address] [address] Urea nitrogen/Creatinine [Mass ratio] 17 ratio Normal - [facility] ([place]) Comment on above: Performed By: #### C BC, ADIFF, ANEU #### [address] [address] #### BMP, GFR #### [address] [address] CBCon 04-19-2019 Erythrocyte distribution width (RBC) [Ratio] 14.0 % Normal 11.5-14.5 [facility] ([place]) Comment on above: Performed By: #### C AYAAN ALAS, ANEU #### [place] [address] #### BMP, GFR #### [address] [address] Hematocrit (Bld) [Volume fraction] 33.0 % Low 42.0-52.0 [facility] ([place]) Comment on above: Performed By: #### C AYAAN ALAS, ANEU #### [place] [address] #### BMP, GFR #### [place] [address] Hemoglobin (Bld) [Mass/Vol] 11.1 G/dL Low 14.0-18.0 [facility] ([place]) Comment on above: Performed By: #### C AYAAN ALAS, ANEU #### [place] [address] #### BMP, GFR #### [place] [address] MCH (RBC) [Entitic mass] 30.1 pg Normal 27.0-31.2 [facility] ([place]) Comment on above: Performed By: #### C AYAAN ALAS, ANEU #### [place] [address] #### BMP, GFR #### [place] [address] MCHC (RBC) [Mass/Vol] 33.6 G/dL Normal 31.8-35.4 [facility] ([place]) Comment on above: Performed By: #### C BISHOP, ADCAROLANN, ANEU #### [place] [address] #### BMP, GFR #### [place] [address] MCV (RBC) [Entitic vol] 89.6 fL Normal 80.0-94.0 [facility] ([place]) Comment on above: Performed By: #### C BC, ADIFF, ANEU #### [address] [address] #### BMP, GFR #### [address] [address] Platelet mean volume (Bld) [Entitic vol] 7.9 fL Normal 7.4-10.4 [facility] ([place]) Comment on above: Performed By: #### C BC, ADIFF, ANEU #### [place] [address] #### BMP, GFR #### [address] [address] Platelets (Bld) [#/Vol] 216 10 3/mcL Normal 130-400 [facility] ([place]) Comment on above: Performed By: #### C BC, ADIFF, ANEU #### [place] [address] #### BMP, GFR #### [address] [address] RBC (Bld) [#/Vol] 3.68 10 6/mcL Low 4.04-6.13 [facility] ([place]) Comment on above: Performed By: #### C BC, ADIFF, ANEU #### [place] [id number] #### BMP, GFR #### [address] [address] WBC (Bld) [#/Vol] 15.90 10 3/mcL High 4.60-10.80 [facility] ([place]) Comment on above: Performed By: #### C BC, ADIFF, ANEU #### [place] [address] #### BMP, GFR #### [address] [address] XR KNEE 1 OR 2 VIEWS RIGHTon 04-19-2019 XR KNEE 1 OR 2 VIEWS RIGHT ORIGINAL XR XR KNEE AP and crosstable lateral 2 VIEWS RIGHT, CLINICAL STATEMENT: Status Post Arthroplasty , check prosthesis alignment COMPARISON: CT 04/03/2019 FINDINGS: The right knee joint has been replaced with a prosthesis that show satisfactory alignment. There are expected postoperative changes in the soft tissues. IMPRESSION: Expected postoperative appearance following right knee replacement surgery. Interpreted By: Jerson Garsia MD Preliminary Report By: Jerson Garsia MD Electronically Signed By: Jerson Garsia MD Dictated Date: 04/19/2019 2:48:27 AM Prelim Date: 04/19/2019 2:48:27 AM Sign Date: 04/19/2019 2:48:55 AM Ordering Provider:[facility] ([place]) CT KNEE W/O CONTRAST RIGHTon 04-04-2019 CT KNEE W/O CONTRAST RIGHT ORIGINAL \H\CT of the right knee without contrast Technique:\N\ Axial images of the knee are obtained with sagittal and coronal reconstructions. Limited axial imaging is also performed through the ipsilateral hip and ankle joints. This exam was performed according to our departmental dose-optimization program which includes automated exposure control, adjustment of the mA and/or kVp according to patient size and/or use of iterative reconstruction technique where applicable. 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 There is severe joint space narrowing anteriorly. Lateral compartment: Marginal spurring and subchondral sclerosis without significant compartment narrowing. Patellofemoral compartment: Lateral tilting of the patella. Severe lateral patellofemoral compartment narrowing with subchondral sclerosis and cystic changes and marginal spurring. There is an 8 mm ossific loose body adjacent to the medial patellofemoral compartment. Other: There is moderate joint effusion. No large popliteal cyst. Hip: Limited axial images through the hip joint. These show a total hip prosthesis. Ankle: Limited axial images of the ankle are also obtained. \H\\N\\H\IMPRESSION:\N\ 1. 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 2. Moderate joint effusion. Small ossific loose body in the joint. Interpreted By: Jerson Garsia MD Preliminary Report By: Jerson Garsia MD Electronically Signed By: Jerson Garsia MD Dictated Date: 04/03/2019 10:22:08 PM Prelim Date: 04/03/2019 10:22:08 PM Sign Date: 04/03/2019 10:42:25 PM Ordering Provider:Terry Hayes [facility] ([place]) .Auto Diffon 04-03-2019 Ammonia (P) [Mass/Vol] 0.50 10 3/mcL Normal 0.15-1.00 [facility] ([place]) Comment on above: Performed By: #### C BC, ADIFF, ANEU #### [place] [address] #### BMP, GFR #### [address] [address] Basophils (Bld) [#/Vol] 0.00 10 3/mcL Normal 0.00-0.19 [facility] ([place]) Comment on above: Performed By: #### C BC, ADIFF, ANEU #### [place] [address] #### BMP, GFR #### [address] [address] Basophils/100 WBC (Bld) 0.5 % Normal 0.0-2.5 [facility] ([place]) Comment on above: Performed By: #### C BC, ADIFF, ANEU #### [place] [address] #### BMP, GFR #### [address] [address] Eosinophils (Bld) [#/Vol] 0.10 10 3/mcL Normal 0.00-0.40 [facility] ([place]) Comment on above: Performed By: #### C BC, ADIFF, ANEU #### [place] [address] #### BMP, GFR #### [address] [address] Eosinophils/100 WBC (Bld) 1.1 % Normal 0.0-7.0 [facility] ([place]) Comment on above: Performed By: #### C BC, ADIFF, ANEU #### [place] [address] #### BMP, GFR #### [address] [address] Lymphocytes (Bld) [#/Vol] 1.30 10 3/mcL Normal 0.77-3.85 [facility] ([place]) Comment on above: Performed By: #### C BC, ADIFF, ANEU #### [address] [address] #### BMP, GFR #### [address] [address] Lymphocytes/100 WBC (Bld) 14.2 % Normal 10.0-50.0 [facility] ([place]) Comment on above: Performed By: #### C BC, ADIFF, ANEU #### [address] [address] #### BMP, GFR #### [address] [address] Monocytes/100 WBC (Bld) 5.5 % Normal 1.7-13.0 [facility] ([place]) Comment on above: Performed By: #### C BC, ADIFF, ANEU #### [address] [address] #### BMP, GFR #### [address] [address] Neutrophils/100 WBC (Bld) 78.7 % Normal 37.0-80.0 [facility] ([place]) Comment on above: Performed By: #### C BC, ADIFF, ANEU #### [place] [address] #### BMP, GFR #### [address] [address] .GFRon 04-03-2019 GFR 80 ml/min/1.73sqm Normal [facility] ([place]) Comment on above: Result Comment: GFR Population mean for , Non- Americans Ages 20-29 = 116 mL/min/1.73 sq.m. Ages 30-39 = 107 mL/min/1.73 sq.m. Ages 40-49 = 99 mL/min/1.73 sq.m. Ages 50-59 = 93 mL/min/1.73 sq.m. Ages 60-69 = 85 mL/min/1.73 sq.m. Ages 70+ = 75 mL/min/1.73 sq.m. Chronic Kidney Disease: Less than 60 mL/min/1.73 square meters End Stage Renal Disease: Less than 15 mL/min/1.73 square meters Performed By: #### C BCGIORGIOIFF, ANEU #### [address] [address] #### BMP, GFR #### [address] [address] GFR Non- 66 ml/min/1.73sqm Normal [facility] ([place]) Comment on above: Result Comment: GFR Population mean for , Non- Americans Ages 20-29 = 116 mL/min/1.73 sq.m. Ages 30-39 = 107 mL/min/1.73 sq.m. Ages 40-49 = 99 mL/min/1.73 sq.m. Ages 50-59 = 93 mL/min/1.73 sq.m. Ages 60-69 = 85 mL/min/1.73 sq.m. Ages 70+ = 75 mL/min/1.73 sq.m. Chronic Kidney Disease: Less than 60 mL/min/1.73 square meters End Stage Renal Disease: Less than 15 mL/min/1.73 square meters Performed By: #### C BCAYAAN, ANEU #### [address] [address] #### BMP, GFR #### [address] [address] .NEUABSon 04-03-2019 Neutrophils (Bld) [#/Vol] 7.10 10 3/mcL High 2.85-6.16 [facility] ([place]) Comment on above: Performed By: #### C BCGIORGIOIFF, ANEU #### [address] [address] #### BMP, GFR #### [address] [address] BMPon 04-03-2019 Calcium [Mass/Vol] 8.5 mg/dL Normal 8.4-10.2 [facility] ([place]) Comment on above: Performed By: #### C BC, ADIFF, ANEU #### [address] [address] #### BMP, GFR #### [address] [address] Chloride [Moles/Vol] 105 mmol/L Normal 98-107 [facility] ([place]) Comment on above: Performed By: #### C BC, ADIFF, ANEU #### [address] [address] #### BMP, GFR #### [address] [address] CO2 [Moles/Vol] 28 mmol/L Normal 23-31 [facility] ([place]) Comment on above: Performed By: #### C BC, ADIFF, ANEU #### [place] [address] #### BMP, GFR #### [address] [address] Creatinine [Mass/Vol] 1.12 mg/dL Normal 0.70-1.30 [facility] ([place]) Comment on above: Performed By: #### C BC, ADIFF, ANEU #### [place] [address] #### BMP, GFR #### [place] [address] Electrolyte Balance 11.0 mEq/L Normal [facility] ([place]) Comment on above: Performed By: #### C BC, ADIFF, ANEU #### [place] [address] #### BMP, GFR #### [place] [address] Glucose [Mass/Vol] 108 mg/dL Normal 80-115 [facility] ([place]) Comment on above: Performed By: #### C BC, ADIFF, ANEU #### [address] [address] #### BMP, GFR #### [address] [address] Potassium [Moles/Vol] 4.0 mmol/L Normal 3.5-5.1 [facility] ([place]) Comment on above: Performed By: #### C BC, ADIFF, ANEU #### [address] [address] #### BMP, GFR #### [address] [address] Sodium [Moles/Vol] 144 mmol/L Normal 136-145 [facility] ([place]) Comment on above: Performed By: #### C BC, ADIFF, ANEU #### [place] [address] #### BMP, GFR #### [address] [address] Urea nitrogen [Mass/Vol] 21 mg/dL High 7-18 [facility] ([place]) Comment on above: Performed By: #### C BC, ADIFF, ANEU #### [address] [address] #### BMP, GFR #### [place] [id number] Urea nitrogen/Creatinine [Mass ratio] 19 ratio Normal 7-27 [facility] ([place]) Comment on above: Performed By: #### C BC, ADIFF, ANEU #### [place] [address] #### BMP, GFR #### [address] [address] CBCon 04-03-2019 Erythrocyte distribution width (RBC) [Ratio] 13.9 % Normal 11.5-14.5 [facility] ([place]) Comment on above: Performed By: #### C BC, ADIFF, ANEU #### [address] [address] #### BMP, GFR #### [address] [address] Hematocrit (Bld) [Volume fraction] 38.6 % Low 42.0-52.0 [facility] ([place]) Comment on above: Performed By: #### C AYAAN ALAS, ANEU #### [address] [address] #### BMP, GFR #### [address] [address] Hemoglobin (Bld) [Mass/Vol] 12.8 G/dL Low 14.0-18.0 [facility] ([place]) Comment on above: Performed By: #### C AYAAN ALAS, ANEU #### [address] [address] #### BMP, GFR #### [place] [address] MCH (RBC) [Entitic mass] 29.5 pg Normal 27.0-31.2 [facility] ([place]) Comment on above: Performed By: #### C AYAAN ALAS, ANEU #### [place] [address] #### BMP, GFR #### [address] [address] MCHC (RBC) [Mass/Vol] 33.3 G/dL Normal 31.8-35.4 [facility] ([place]) Comment on above: Performed By: #### C AYAAN ALAS, ANEU #### [place] [address] #### BMP, GFR #### [place] [id number] MCV (RBC) [Entitic vol] 88.5 fL Normal 80.0-94.0 [facility] ([place]) Comment on above: Performed By: #### C AYAAN ALAS, ANEU #### [place] [address] #### BMP, GFR #### [address] [address] Platelet mean volume (Bld) [Entitic vol] 8.0 fL Normal 7.4-10.4 [facility] ([place]) Comment on above: Performed By: #### C BC, ADIFF, ANEU #### [address] [address] #### BMP, GFR #### [address] [address] Platelets (Bld) [#/Vol] 251 10 3/mcL Normal 130-400 [facility] ([place]) Comment on above: Performed By: #### C BC, ADIFF, ANEU #### [address] [address] #### BMP, GFR #### [address] [address] RBC (Bld) [#/Vol] 4.36 10 6/mcL Normal 4.04-6.13 [facility] ([place]) Comment on above: Performed By: #### C BC, ADIFF, ANEU #### [address] [address] #### BMP, GFR #### [address] [address] WBC (Bld) [#/Vol] 9.10 10 3/mcL Normal 4.60-10.80 [facility] ([place]) Comment on above: Performed By: #### C BC, ADIFF, ANEU #### [address] [address] #### BMP, GFR #### [address] [address] Vital Signs Date Time Vital Sign Value Performing Clinician Liana angelo 09-28-2024 11:23040 Body height 188 cm France Johnson CNP Work Phone: [facility] 09-28-2024 11:[id number] Body mass index (BMI) [Ratio] 38.88 kg/m2 France Spain APRN - RIA Work Phone: [facility] 09-28-2024 11:[id number] Body weight 137.35 kg France Johnson CNP Work Phone: [facility] 09-28-2024 11:23-0400 Diastolic blood pressure 82 mm[Hg] France Spain [employer] - LABOR TRAINING MANAGER Work Phone: [facility] 09-28-2024 11:23-0400 Heart rate 60 /min France Spain [employer]ATHER - LABOR TRAINING MANAGER Work Phone: [facility] 09-28-2024 11:23-0400 SaO2% (BldA) [Mass fraction] 96 % France Spain [employer]ER - LABOR TRAINING MANAGER Work Phone: [facility] [employer] 09-28-2024 11:23-0400 Systolic blood pressure 126 mm[Hg] France Spain [employer]ATHER - LABOR TRAINING MANAGER Work Phone: [facility] 09-15-2024 07:50-0400 Body temperature 97.7 [degF] Dominguez Ortega MD Work Phone: [facility] 09-15-2024 07:50-0400 Diastolic blood pressure 67 mm[Hg] Dominguez Ortega MD Work Phone: [facility] 09-15-2024 07:50-0400 Heart rate 63 /min Dominguez Ortega MD Work Phone: [facility] 09-15-2024 07:50-0400 Respiratory rate 16 /min Dominguez Ortega MD Work Phone: [facility] 09-15-2024 07:50-0400 SaO2% (BldA) [Mass fraction] 97 % Dominguez Ortega MD Work Phone: [facility] 09-15-2024 07:50-0400 Systolic blood pressure 142 mm[Hg] Dominguez Ortega MD Work Phone: [facility] 09-15-2024 05:00-0400 Body mass index (BMI) [Ratio] 39.62 kg/m2 Dominguez rOtega MD Work Phone: [facility] 09-15-2024 05:00-0400 Body weight 139.98 kg Dominguez Ortega MD Work Phone: [facility] [employer] 09-14-2024 09:28-0400 Body height 188 cm Dominguez Ortega MD Work Phone: [facility] 08-24-2024 14:56-0400 Body height 188 cm France Spain [employer]ER - LABOR TRAINING MANAGER Work Phone: [facility] [employer] 08-24-2024 14:56-0400 Body mass index (BMI) [Ratio] 39.03 kg/m2 France Spain [employer]ER - LABOR TRAINING MANAGER Work Phone: [facility] [employer] 08-24-2024 14:56-0400 Body weight 137.89 kg France Spain MET[employer] TILE LATHER - LABOR TRAINING MANAGER Work Phone: [facility] 08-24-2024 14:56-0400 Diastolic blood pressure 70 mm[Hg] France Spain [employer] TILE [employer]ATHER - LABOR TRAINING MANAGER Work Phone: [facility] 08-24-2024 14:56-0400 Heart rate 68 /min France Spain [employer]LE LATHER - LABOR TRAINING MANAGER Work Phone: [facility] 08-24-2024 14:56-0400 Systolic blood pressure 126 mm[Hg] France Spain [employer] TILE LATHER - LABOR TRAINING MANAGER Work Phone: [facility] 07-20-2024 13:30-0500 Body height 188 cm France Spain [employer] TILE LATHER - LABOR TRAINING MANAGER Work Phone: [facility] 07-20-2024 13:30-0500 Body mass index (BMI) [Ratio] 39.21 kg/m2 France Spain [employer]ATHER - LABOR TRAINING MANAGER Work Phone: [facility] 07-20-2024 13:30-0500 Body weight 138.53 kg France Spain MET[employer] TILE LATHER - LABOR TRAINING MANAGER Work Phone: [facility] 07-20-2024 13:30-0500 Diastolic blood pressure 60 mm[Hg] France Spain [employer] TILE LATHER - LABOR TRAINING MANAGER Work Phone: [facility] 07-20-2024 13:30-0500 Heart rate 66 /min [place] Spain [employer] LATHER - LABOR TRAINING MANAGER Work Phone: [employer] 07-20-2024 13:30-0500 SaO2% (BldA) [Mass fraction] 95 % France Spain [employer]LE LATHER - LABOR TRAINING MANAGER Work Phone: [employer] 07-20-2024 13:30-0500 Systolic blood pressure 130 mm[Hg] France Spain MET[employer] TILE LATHER - LABOR TRAINING MANAGER Work Phone: [facility] 07-06-2024 14:06-0500 Body height 188 cm France Spain MET[employer] TILE LATHER - LABOR TRAINING MANAGER Work Phone: [employer] 07-06-2024 14:06-0500 Body mass index (BMI) [Ratio] 39.93 kg/m2 France Spain [employer] LATHER - LABOR TRAINING MANAGER Work Phone: [facility] 07-06-2024 14:06-0500 Body weight 141.07 kg France Spain MET[employer] TILE LATHER - LABOR TRAINING MANAGER Work Phone: [facility] 07-06-2024 14:06-0500 Diastolic blood pressure 82 mm[Hg] France Spain MET[employer] TILE LATHER - LABOR TRAINING MANAGER Work Phone: [facility] [employer] 07-06-2024 14:06-0500 Heart rate 68 /min France Spain MET[employer] TILE LATHER - LABOR TRAINING MANAGER Work Phone: [facility] [employer] 07-06-2024 14:06-0500 Systolic blood pressure 138 mm[Hg] France Valentinle METAL TILE LATHER - LABOR TRAINING MANAGER Work Phone: [facility] [employer] 02-01-2024 14:47-0400 Diastolic blood pressure 80 mm[Hg] Dominguez Ortega MD Work Phone: [facility] 02-01-2024 14:47-0400 Systolic blood pressure 142 mm[Hg] Dominguez Ortega MD Work Phone: [facility] [employer] 02-01-2024 14:15-0400 Body height 188 cm Dominguez Ortega MD Work Phone: [facility] [employer] 02-01-2024 14:15-0400 Body mass index (BMI) [Ratio] 39.54 kg/m2 Dominguez Ortega MD Work Phone: [facility] 02-01-2024 14:15-0400 Body weight 139.71 kg Dominguez Ortega MD Work Phone: [facility] 02-01-2024 14:15-0400 Heart rate 62 /min Dominguez Ortega MD Work Phone: [facility] 02-01-2024 14:15-0400 SaO2% (BldA) [Mass fraction] 99 % Dominguez Ortega MD Work Phone: [facility] 07-29-2023 10:33-0500 Body height 189.2 cm France Spain MET[employer] TILE LATHER - LABOR TRAINING MANAGER Work Phone: [facility] [employer] 07-29-2023 10:33-0500 Body mass index (BMI) [Ratio] 38.51 kg/m2 France Spain [employer] TILE LATHER - LABOR TRAINING MANAGER Work Phone: [facility] [employer] 07-29-2023 10:33-0500 Body weight 137.89 kg France Spain METAL TILE LATHER - LABOR TRAINING MANAGER Work Phone: [facility] [employer] 07-29-2023 10:33-0500 Diastolic blood pressure 78 mm[Hg] France Spain METAL TILE LATHER - LABOR TRAINING MANAGER Work Phone: [facility] 07-29-2023 10:33-0500 Heart rate 60 /min France Spain 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 Finn Ferrell Work Phone: [facility] 07-09-2023 07:34-0500 Systolic blood pressure 137 mm[Hg] Dr. Finn Ferrell Work Phone: [facility] 07-09-2023 07:32-0500 Body temperature 97.3 [degF] Dr. Finn Ferrell Work Phone: [facility] 07-09-2023 07:32-0500 Heart rate 62 /min Dr. Finn Frerell Work Phone: [facility] 07-09-2023 07:32-0500 Respiratory rate 16 /min Dr. Finn Ferrell Work Phone: [facility] 07-09-2023 07:32-0500 SaO2% (BldA) [Mass fraction] 97 % Dr. Finn Ferrell Work Phone: [facility] 07-05-2023 14:21-0500 Diastolic blood pressure 67 mm[Hg] Dr. Finn Ferrell Work Phone: [facility] 07-05-2023 14:21-0500 Heart rate 78 /min Dr. Finn Ferrell Work Phone: [facility] 07-05-2023 14:21-0500 Respiratory rate 16 /min Dr. Finn Ferrell Work Phone: [facility] 07-05-2023 14:21-0500 SaO2% (BldA) [Mass fraction] 98 % Dr. Finn Ferrell Work Phone: [facility] 07-05-2023 14:21-0500 Systolic blood pressure 136 mm[Hg] Dr. Finn Ferrell Work Phone: [facility] 07-05-2023 11:45-0500 Body height 187.[address] Finn Ferrell Work Phone: [facility] 07-05-2023 11:45-0500 Body mass index (BMI) [Ratio] 40.2 kg/m2 Dr. Finn Ferrell Work Phone: [facility] 07-05-2023 11:45-0500 Body temperature 97.2 [degF] Dr. Finn Ferrell Work Phone: [facility] 07-05-2023 11:45-0500 Body weight 142.[address] Finn Ferrell Work Phone: [facility] 06-17-2023 11:55-0500 Diastolic blood pressure 70 mm[Hg] France Spain METAL TILE LATHER - LABOR TRAINING MANAGER Work Phone: [facility] 06-17-2023 11:55-0500 Systolic blood pressure 110 mm[Hg] France Spain METAL TILE LATHER - LABOR TRAINING MANAGER Work Phone: [facility] 06-17-2023 10:02-0500 Body height 189.2 cm France Spain METAL TILE LATHER - LABOR TRAINING MANAGER Work Phone: [facility] 06-17-2023 10:02-0500 Body mass index (BMI) [Ratio] 38.86 kg/m2 France Spain METAL TILE LATHER - LABOR TRAINING MANAGER Work Phone: [facility] [employer] 06-17-2023 10:02-0500 Body weight 139.16 kg France Spain METAL TILE LATHER - LABOR TRAINING MANAGER Work Phone: [facility] 06-17-2023 10:02-0500 Heart rate 66 /min France Spain METAL TILE LATHER - LABOR TRAINING MANAGER Work Phone: [facility] 06-17-2023 10:02-0500 SaO2% (BldA) [Mass fraction] 94 % France Spain METAL TILE LATHER - LABOR TRAINING MANAGER Work Phone: [facility] 05-20-2023 11:26-0500 Body temperature 99.2 [degF] Dr. Finn Ferrell Work Phone: [facility] 05-20-2023 11:26-0500 Diastolic blood pressure 86 mm[Hg] Dr. Finn Ferrell Work Phone: [facility] 05-20-2023 11:26-0500 Heart rate 57 /min Dr. Finn Ferrell Work Phone: [facility] 05-20-2023 11:26-0500 Respiratory rate 18 /min Dr. Finn Ferrell Work Phone: [facility] 05-20-2023 11:26-0500 SaO2% (BldA) [Mass fraction] 97 % Dr. Finn Ferrell Work Phone: [facility] 05-20-2023 11:26-0500 Systolic blood pressure 136 mm[Hg] Dr. Finn Ferrell Work Phone: [facility] 05-20-2023 10:00-0500 Body height 187.[address] Finn Ferrell Work Phone: [facility] 05-20-2023 10:00-0500 Body mass index (BMI) [Ratio] 40.1 kg/m2 Dr. Finn Ferrell Work Phone: [facility] 05-20-2023 10:00-0500 Body weight [address] Finn Ferrell Work Phone: [facility] 05-10-2023 10:12-0500 Body height 189.2 cm Tree Gonzales MD Work Phone: [facility] 05-10-2023 10:12-0500 Body mass index (BMI) [Ratio] 38.88 kg/m2 Tree Gonzales MD Work Phone: [facility] 05-10-2023 10:12-0500 Body weight 139.16 kg Tree Gonzales MD Work Phone: [facility] 05-10-2023 10:12-0500 Diastolic blood pressure 86 mm[Hg] Tree Gonzales MD Work Phone: [facility] [employer] 05-10-2023 10:12-0500 Heart rate 52 /min Tree Gonzales MD Work Phone: [facility] 05-10-2023 10:12-0500 Respiratory rate 18 /min Tree Gonzales MD Work Phone: [facility] 05-10-2023 10:12-0500 SaO2% (BldA) [Mass fraction] 92 % Tree Gonzales MD Work Phone: [facility] Comment on above: RA 05-10-2023 10:12-0500 Systolic blood pressure 140 mm[Hg] Tree Gonzales MD Work Phone: [facility] 04-08-2023 09:51-0500 Body height 189.2 cm France Spain METAL TILE LATHER - LABOR TRAINING MANAGER Work Phone: [facility] 04-08-2023 09:51-0500 Body mass index (BMI) [Ratio] 38.86 kg/m2 France Spain METAL TILE LATHER - LABOR TRAINING MANAGER Work Phone: [facility] 04-08-2023 09:51-0500 Body weight 139.16 kg France Spain METAL TILE LATHER - LABOR TRAINING MANAGER Work Phone: [facility] 04-08-2023 09:51-0500 Diastolic blood pressure 78 mm[Hg] France Spain METAL TILE LATHER - LABOR TRAINING MANAGER Work Phone: [facility] [employer] 04-08-2023 09:51-0500 Heart rate 68 /min [place] METAL TILE LATHER - LABOR TRAINING MANAGER Work Phone: [facility] 04-08-2023 09:51-0500 SaO2% (BldA) [Mass fraction] 97 % [place] Spain METAL TILE LATHER - LABOR TRAINING MANAGER Work Phone: [facility] 04-08-2023 09:51-0500 Systolic blood pressure 124 mm[Hg] France Spain METAL TILE LATHER - LABOR TRAINING MANAGER Work Phone: [facility] [employer] 04-07-2023 09:19-0500 Body mass index (BMI) [Ratio] 39.2 kg/m2 Dr. Finn Ferrell Work Phone: [facility] 04-07-2023 09:19-0500 Body weight 138.[address] Finn Ferrell Work Phone: [facility] 04-07-2023 09:19-0500 Diastolic blood pressure 75 mm[Hg] Dr. Finn Ferrell Work Phone: [facility] 04-07-2023 09:19-0500 Heart rate 71 /min Dr. Finn Ferrell Work Phone: [facility] 04-07-2023 09:19-0500 Respiratory rate 17 /min Dr. Finn Ferrell Work Phone: [facility] 04-07-2023 09:19-0500 SaO2% (BldA) [Mass fraction] 95 % Dr. Finn Ferrell Work Phone: [facility] 04-07-2023 09:19-0500 Systolic blood pressure 133 mm[Hg] Dr. Finn Ferrell Work Phone: [facility] 03-29-2023 13:10-0500 Body height 189.2 cm Chris Boyce MD Work Phone: [facility] [employer] 03-29-2023 13:10-0500 Body mass index (BMI) [Ratio] 39.32 kg/m2 Chris Boyce MD Work Phone: [facility] 03-29-2023 13:10-0500 Body weight 140.8 kg Chris Boyce MD Work Phone: [facility] [employer] 03-29-2023 13:10-0500 Diastolic blood pressure 74 mm[Hg] Chris Boyce MD Work Phone: [facility] [employer] 03-29-2023 13:10-0500 Heart rate 63 /min Chris Boyce MD Work Phone: [facility] 03-29-2023 13:10-0500 Respiratory rate 18 /min Chris Boyce MD Work Phone: [facility] 03-29-2023 13:10-0500 SaO2% (BldA) [Mass fraction] 95 % Chris Boyce MD Work Phone: [facility] Comment on above: 03-29-2023 13:10-0500 Systolic blood pressure 126 mm[Hg] Chris Boyce MD Work Phone: [facility] 03-18-2023 10:41-0400 Body height 189.2 cm [place] Spain [employer] TILE LATHER - LABOR TRAINING MANAGER Work Phone: [employer] 03-18-2023 10:41-0400 Body mass index (BMI) [Ratio] 38.91 kg/m2 [place] Spain MET[employer] TILE LATHER - LABOR TRAINING MANAGER Work Phone: [employer] 03-18-2023 10:41-0400 Body weight 139.34 kg [place] Spain METAL TILE LATHER - LABOR TRAINING MANAGER Work Phone: [employer] [employer] 03-18-2023 10:41-0400 Diastolic blood pressure 74 mm[Hg] France Spain METAL TILE LATHER - LABOR TRAINING MANAGER Work Phone: [employer] [employer] 03-18-2023 10:41-0400 Heart rate 64 /min [place] MET[employer] TILE LATHER - LABOR TRAINING MANAGER Work Phone: [facility] [employer] 03-18-2023 10:41-0400 SaO2% (BldA) [Mass fraction] 97 % [place] Spain METAL TILE LATHER - LABOR TRAINING MANAGER Work Phone: [employer] [employer] 03-18-2023 10:41-0400 Systolic blood pressure 122 mm[Hg] [place] Spain MET[employer] TILE LATHER - LABOR TRAINING MANAGER Work Phone: [employer] 03-01-2023 11:15-0400 Diastolic blood pressure 73 mm[Hg] Zoie Gonzales MD Work Phone: [employer] 03-01-2023 11:15-0400 Heart rate 63 /min Zoie Gonzales MD Work Phone: [employer] 03-01-2023 11:15-0400 Respiratory rate 14 /min Zoie Gonzales MD Work Phone: [employer] 03-01-2023 11:15-0400 Systolic blood pressure 133 mm[Hg] Zoie Gonzales MD Work Phone: [facility] 03-01-2023 08:55-0400 Body temperature 97 [degF] Zoie Gonzales MD Work Phone: [facility] 03-01-2023 07:12-0400 Body height 188 cm Zoie Gonzales MD Work Phone: [facility] 03-01-2023 07:12-0400 Body mass index (BMI) [Ratio] 39.54 kg/m2 Zoie Gonzales MD Work Phone: [facility] 03-01-2023 07:12-0400 Body weight 139.71 kg Zoie Gonzales MD Work Phone: [facility] 03-01-2023 07:12-0400 SaO2% (BldA) [Mass fraction] 99 % Zoie Gonzales MD Work Phone: [facility] 02-22-2023 13:33-0400 Body height 188 cm Zoie Gonzales MD Work Phone: [facility] 02-22-2023 13:33-0400 Body mass index (BMI) [Ratio] 39.57 kg/m2 Zoie Gonzales MD Work Phone: [facility] [employer] 02-22-2023 13:33-0400 Body weight 139.8 kg Zoie Gonzales MD Work Phone: [facility] 02-22-2023 13:33-0400 Diastolic blood pressure 76 mm[Hg] Zoie Gonzales MD Work Phone: [facility] [employer] 02-22-2023 13:33-0400 Heart rate 71 /min Zoie Gonzales MD Work Phone: [facility] 02-22-2023 13:33-0400 SaO2% (BldA) [Mass fraction] 96 % Zoie Gonzales MD Work Phone: [facility] 02-22-2023 13:33-0400 Systolic blood pressure 142 mm[Hg] Zoie Gonzales MD Work Phone: [facility] [employer] 02-02-2023 08:39-0400 Body height 188 cm Kate Johnson CNP Work Phone: [facility] [employer] 02-02-2023 08:39-0400 Body mass index (BMI) [Ratio] 38.65 kg/m2 Kate Mcguireg [employer] - LABOR TRAINING MANAGER Work Phone: [facility] 02-02-2023 08:39-0400 Body weight 136.53 kg Kate Ferdig [employer] - LABOR TRAINING MANAGER Work Phone: [facility] 02-02-2023 08:39-0400 Diastolic blood pressure 82 mm[Hg] Kate Connellydig [employer] - LABOR TRAINING MANAGER Work Phone: [facility] 02-02-2023 08:39-0400 Heart rate 62 /min Kate Agdig [employer] - LABOR TRAINING MANAGER Work Phone: [facility] 02-02-2023 08:39-0400 SaO2% (BldA) [Mass fraction] 98 % Kate Agdig [employer] - LABOR TRAINING MANAGER Work Phone: [facility] 02-02-2023 08:39-0400 Systolic blood pressure 122 mm[Hg] Kate Mcguireg [employer] - LABOR TRAINING MANAGER Work Phone: [facility] 12-29-2022 01:09-0400 Diastolic blood pressure 82 mm[Hg] No Primary Care Physician [facility] 12-29-2022 01:09-0400 Heart rate 75 /min No Primary Care Physician [facility] 12-29-2022 01:09-0400 Respiratory rate 18 /min No Primary Care Physician [facility] 12-29-2022 01:09-0400 Systolic blood pressure 135 mm[Hg] No Primary Care Physician [facility] 12-28-2022 22:46-0400 Body height 187.96 cm No Primary Care Physician [facility] 12-28-2022 22:46-0400 Body mass index (BMI) [Ratio] 39.2 kg/m2 No Primary Care Physician [facility] 12-28-2022 22:46-0400 Body temperature 98 [degF] No Primary Care Physician [facility] 12-28-2022 22:46-0400 Body weight 138.4 kg No Primary Care Physician [facility] 12-28-2022 22:46-0400 SaO2% (BldA) [Mass fraction] 97 % No Primary Care Physician [facility] 12-08-2022 15:00-0400 Body temperature 99.5 [degF] Jersey Oneil MD Work Phone: [facility] 12-08-2022 15:00-0400 Diastolic blood pressure 68 mm[Hg] Jersey Oneil MD Work Phone: [facility] 12-08-2022 15:00-0400 Heart rate 68 /min Jersey Oneil MD Work Phone: [facility] 12-08-2022 15:00-0400 Respiratory rate 18 /min Jersey Oneil MD Work Phone: [facility] 12-08-2022 15:00-0400 SaO2% (BldA) [Mass fraction] 96 % Jersey Oneil MD Work Phone: [facility] 12-08-2022 15:00-0400 Systolic blood pressure 112 mm[Hg] Jersey Oneil MD Work Phone: [facility] 12-07-2022 03:23-0400 Body mass index (BMI) [Ratio] 39.92 kg/m2 Jersey Oneil MD Work Phone: [facility] 12-07-2022 03:23-0400 Body weight 141.02 kg Jersey Oneil MD Work Phone: [facility] 12-06-2022 08:00-0400 Diastolic blood pressure 81 mm[Hg] Self Referred [facility] 12-06-2022 08:00-0400 Heart rate 82 /min Self Referred [facility] 12-06-2022 08:00-0400 Respiratory rate 22 /min Self Referred [facility] 12-06-2022 08:00-0400 SaO2% (BldA) [Mass fraction] 94 % Self Referred [facility] 12-06-2022 08:00-0400 Systolic blood pressure 168 mm[Hg] Self Referred [facility] 12-06-2022 06:38-0400 Body temperature 98.1 [degF] Self Referred [facility] 12-05-2022 22:45-0400 Body height 187.96 cm Self Referred [facility] 12-05-2022 22:45-0400 Body mass index (BMI) [Ratio] 41 kg/m2 Self Referred [facility] 12-05-2022 22:45-0400 Body weight 145 kg Self Referred [facility] 12-03-2022 14:21-0400 Body height 188 cm Zoie Gonzales MD Work Phone: [facility] 12-03-2022 14:21-0400 Body mass index (BMI) [Ratio] 39.75 kg/m2 Zoie Gonzales MD Work Phone: [facility] 12-03-2022 14:21-0400 Body weight 140.43 kg Zoie Gonzales MD Work Phone: [facility] 12-03-2022 14:21-0400 Diastolic blood pressure 58 mm[Hg] Zoie Gonzales MD Work Phone: [facility] 12-03-2022 14:21-0400 Heart rate 78 /min Zoie Gonzales MD Work Phone: [facility] 12-03-2022 14:21-0400 SaO2% (BldA) [Mass fraction] 92 % Zoie Gonzales MD Work Phone: [facility] 12-03-2022 14:21-0400 Systolic blood pressure 130 mm[Hg] Zoie Gonzales MD Work Phone: [facility] 11-18-2022 11:26-0400 Body height 188 cm Samra Martin [employer] - LABOR TRAINING MANAGER Work Phone: [facility] 11-18-2022 11:26-0400 Body mass index (BMI) [Ratio] 37.88 kg/m2 Sadmarta Oredein [employer] - LABOR TRAINING MANAGER Work Phone: [facility] 11-18-2022 11:26-0400 Body weight 133.81 kg Samra Connellydein [employer] - LABOR TRAINING MANAGER Work Phone: [facility] 11-11-2022 09:55-0400 Body height 189.2 cm Chris Boyce MD Work Phone: [facility] 11-11-2022 09:55-0400 Body mass index (BMI) [Ratio] 39.18 kg/m2 Chris Boyce MD Work Phone: [facility] 11-11-2022 09:55-0400 Body weight 140.25 kg Chris Boyce MD Work Phone: [facility] 11-11-2022 09:55-0400 Diastolic blood pressure 80 mm[Hg] Chris Boyce MD Work Phone: [facility] 11-11-2022 09:55-0400 Heart rate 71 /min Chris Boyce MD Work Phone: [facility] 11-11-2022 09:55-0400 Respiratory rate 18 /min Chris Boyce MD Work Phone: [facility] 11-11-2022 09:55-0400 SaO2% (BldA) [Mass fraction] 91 % Chris Boyce MD Work Phone: [facility] [employer] Comment on above: 11-11-2022 09:55-0400 Systolic blood pressure 138 mm[Hg] Chris Boyce MD Work Phone: [facility] 10-27-2022 08:18-0400 Body height 189.[address] Vinayak Ontiveros Work Phone: [facility] 10-27-2022 08:18-0400 Body mass index (BMI) [Ratio] 39.5 kg/m2 Dr. Vinayak Ontiveros Work Phone: [facility] 10-27-2022 08:18-0400 Body temperature 97.5 [degF] Dr. Vinayak Ontiveros Work Phone: [facility] 10-27-2022 08:18-0400 Body weight 141.[address] Vinayak Ontiveros Work Phone: [facility] 10-27-2022 08:18-0400 Diastolic blood pressure 74 mm[Hg] Dr. Vinayak Ontiveros Work Phone: [facility] 10-27-2022 08:18-0400 Heart rate 58 /min Dr. Vinayak Ontiveros Work Phone: [facility] 10-27-2022 08:18-0400 Respiratory rate 18 /min Dr. Vinayak Ontiveros Work Phone: [facility] 10-27-2022 08:18-0400 SaO2% (BldA) [Mass fraction] 95 % Dr. Vinayak Ontiveors Work Phone: [facility] 10-27-2022 08:18-0400 Systolic blood pressure 132 mm[Hg] Dr. Vinayak Ontiveros Work Phone: [facility] 09-28-2022 13:14-0400 Body height 188 cm Sadine Oredein [employer] - LABOR TRAINING MANAGER Work Phone: [facility] 09-28-2022 13:14-0400 Body mass index (BMI) [Ratio] 39.54 kg/m2 Sadine Oredein [employer] - LABOR TRAINING MANAGER Work Phone: [facility] 09-28-2022 13:14-0400 Body weight 139.71 kg Sadine Oredein [employer] - LABOR TRAINING MANAGER Work Phone: [facility] 09-28-2022 13:14-0400 Diastolic blood pressure 72 mm[Hg] Sadine Oredein [employer] - LABOR TRAINING MANAGER Work Phone: [facility] 09-28-2022 13:14-0400 Heart rate 66 /min Sadine Oredein [employer] - LABOR TRAINING MANAGER Work Phone: [facility] 09-28-2022 13:14-0400 Respiratory rate 20 /min Sadine Oredein [employer] - LABOR TRAINING MANAGER Work Phone: [facility] 09-28-2022 13:14-0400 SaO2% (BldA) [Mass fraction] 96 % Sadine Oredein [employer] - LABOR TRAINING MANAGER Work Phone: [facility] 09-28-2022 13:14-0400 Systolic blood pressure 138 mm[Hg] Samra Gonzalez [employer] - LABOR TRAINING MANAGER Work Phone: [facility] 08-21-2022 14:43-0400 Body temperature 97.8 [degF] Dr. Vinayak Ontiveros Work Phone: [facility] 08-21-2022 14:43-0400 Diastolic blood pressure 55 mm[Hg] Dr. Vinayak Ontiveros Work Phone: [facility] 08-21-2022 14:43-0400 Heart rate 82 /min Dr. Vinayak Ontiveros Work Phone: [facility] 08-21-2022 14:43-0400 Respiratory rate 18 /min Dr. Vinayak Ontiveros Work Phone: [facility] 08-21-2022 14:43-0400 SaO2% (BldA) [Mass fraction] 95 % Dr. Vinayak Ontiveros Work Phone: [facility] 08-21-2022 14:43-0400 Systolic blood pressure 117 mm[Hg] Dr. Vinayak Ontiveros Work Phone: [facility] 08-21-2022 06:29-0400 Body mass index (BMI) [Ratio] 39.6 kg/m2 Dr. Vinayak Ontiveros Work Phone: [facility] 08-21-2022 06:29-0400 Body weight 141.[address] Vinayak Ontiveros Work Phone: [facility] 08-21-2022 06:12-0400 Inhaled oxygen flow rate 2 L/min Dr. Vinayak Ontiveros Work Phone: [facility] 08-20-2022 13:18-0400 Body height 189.[address] Vinayak Ontiveros Work Phone: [facility] 07-28-2022 10:42-0500 Body mass index (BMI) [Ratio] 38.7 kg/m2 Dr. Vinayak Ontiveros Work Phone: [facility] 07-28-2022 10:42-0500 Body weight 136.[address] Vinayak Ontiveros Work Phone: [facility] 07-06-2022 14:28-0500 Body height 188 cm Zoie Gonzales MD Work Phone: [facility] 07-06-2022 14:28-0500 Body mass index (BMI) [Ratio] 38.26 kg/m2 Zoie Gonzales MD Work Phone: [facility] 07-06-2022 14:28-0500 Body weight 135.17 kg Zoie Gonzales MD Work Phone: [facility] 04-01-2022 11:20-0500 Body height 187.[address] Vinayak Ontiveros Work Phone: [facility] Work Phone: 04-01-2022 11:20-0500 Body mass index (BMI) [Ratio] 37.7 kg/m2 Dr. Vinayak Ontiveros Work Phone: [facility] Work Phone: 04-01-2022 11:20-0500 Body weight 133.[address] Vinayak Ontiveros Work Phone: [facility] Work Phone: 04-01-2022 11:20-0500 Diastolic blood pressure 62 mm[Hg] Dr. Vinayak Ontiveros Work Phone: [facility] Work Phone: 04-01-2022 11:20-0500 Heart rate 50 /min Dr. Vinayak Ontiveros Work Phone: [facility] Work Phone: 04-01-2022 11:20-0500 SaO2% (BldA) [Mass fraction] 96 % Dr. Vinayak Ontiveros Work Phone: [facility] Work Phone: 04-01-2022 11:20-0500 Systolic blood pressure 108 mm[Hg] Dr. Vinayak Ontiveros Work Phone: [facility] Work Phone: 01-27-2022 07:56-0400 Body mass index (BMI) [Ratio] 38.6 kg/m2 Dr. Vinayak Ontiveros Work Phone: [facility] Work Phone: 01-27-2022 07:56-0400 Body weight 136.[address] Vinayak Ontiveros Work Phone: [facility] Work Phone: 01-12-2022 13:15-0400 Body temperature 98.9 [degF] Dr. Vinayak Ontiveros Work Phone: [facility] Work Phone: 01-12-2022 13:15-0400 Diastolic blood pressure 59 mm[Hg] Dr. Vinayak Ontiveros Work Phone: [facility] Work Phone: 01-12-2022 13:15-0400 Heart rate 68 /min Dr. Vinayak Ontiveors Work Phone: [facility] Work Phone: 01-12-2022 13:15-0400 Respiratory rate 16 /min Dr. Vinayak Ontiveros Work Phone: [facility] Work Phone: 01-12-2022 13:15-0400 SaO2% (BldA) [Mass fraction] 95 % Dr. Vinayak Ontiveros Work Phone: [facility] Work Phone: 01-12-2022 13:15-0400 Systolic blood pressure 117 mm[Hg] Dr. Vinayak Ontiveros Work Phone: [facility] Work Phone: 01-12-2022 10:42-0400 Body height 187.[address] Vinayak Ontiveros Work Phone: [facility] Work Phone: 01-12-2022 10:42-0400 Body mass index (BMI) [Ratio] 38 kg/m2 Dr. Vinayak Ontiveros Work Phone: [facility] Work Phone: 01-12-2022 10:42-0400 Body weight 134.[address] Vinayak Ontiveros Work Phone: [facility] Work Phone: 12-30-2021 08:52-0400 Body height 189.2 cm Tree Gonzales MD Work Phone: [facility] 12-30-2021 08:52-0400 Body mass index (BMI) [Ratio] 36.86 kg/m2 Tree Gonzales MD Work Phone: [facility] 12-30-2021 08:52-0400 Body weight 132 kg Tree Gonzales MD Work Phone: [facility] 12-29-2021 09:25-0400 Body mass index (BMI) [Ratio] 39.6 kg/m2 Dr. Vinayak Ontiveros Work Phone: [facility] Work Phone: 12-29-2021 09:25-0400 Body weight 136.[address] Vinayak Ontiveros Work Phone: [facility] Work Phone: 12-29-2021 09:25-0400 Diastolic blood pressure 86 mm[Hg] Dr. Vinayak Ontiveros Work Phone: [facility] Work Phone: 12-29-2021 09:25-0400 Heart rate 65 /min Dr. Vinayak Ontiveros Work Phone: [facility] Work Phone: 12-29-2021 09:25-0400 SaO2% (BldA) [Mass fraction] 96 % Dr. Vinayak Ontiveros Work Phone: [facility] Work Phone: 12-29-2021 09:25-0400 Systolic blood pressure 166 mm[Hg] Dr. Vinayak Ontiveros Work Phone: [facility] Work Phone: 12-01-2021 16:00-0400 Diastolic blood pressure 62 mm[Hg] Zoie Gonzales MD Work Phone: [facility] 12-01-2021 16:00-0400 Heart rate 57 /min Zoie Gonzales MD Work Phone: [facility] 12-01-2021 16:00-0400 Respiratory rate 19 /min Zoie Gonzales MD Work Phone: [facility] 12-01-2021 16:00-0400 SaO2% (BldA) [Mass fraction] 95 % Zoie Gonzales MD Work Phone: [facility] 12-01-2021 16:00-0400 Systolic blood pressure 119 mm[Hg] Zoie Gonzales MD Work Phone: [facility] 12-01-2021 11:14-0400 Body temperature 97.2 [degF] Zoie Gonzales MD Work Phone: [facility] 09-10-2021 01:37-0400 Diastolic blood pressure 83 mm[Hg] Dr. Vinayak Ontiveros Work Phone: [facility] Work Phone: 09-10-2021 01:37-0400 Heart rate 55 /min Dr. Vinayak Ontiveros Work Phone: [facility] Work Phone: 09-10-2021 01:37-0400 Respiratory rate 19 /min Dr. Vinayak Ontiveros Work Phone: [facility] Work Phone: 09-10-2021 01:37-0400 SaO2% (BldA) [Mass fraction] 95 % Dr. Vinayak Ontiveros Work Phone: [facility] Work Phone: 09-10-2021 01:37-0400 Systolic blood pressure 128 mm[Hg] Dr. Vinayak Ontiveros Work Phone: [facility] Work Phone: 09-09-2021 23:44-0400 Body height 185.[address] Vinayak Ontiveros Work Phone: [facility] Work Phone: 09-09-2021 23:44-0400 Body mass index (BMI) [Ratio] 41.5 kg/m2 Dr. Vinayak Ontiveros Work Phone: [facility] Work Phone: 09-09-2021 23:44-0400 Body weight [address] Vinayak Ontiveros Work Phone: [facility] Work Phone: 09-09-2021 22:56-0400 Body temperature 98.1 [degF] Dr. Vinayak Ontiveros Work Phone: [facility] Work Phone: 03-18-2021 08:56-0400 Body temperature 98.4 [degF] Zoie Gonzales MD Work Phone: [employer] Work Phone: 03-18-2021 08:56-0400 Heart rate 71 /min Zoie Gonzales MD Work Phone: [employer] Work Phone: 03-18-2021 08:56-0400 SaO2% (BldA) [Mass fraction] 92 % Zoie Gonzales MD Work Phone: [facility] Work Phone: 03-18-2021 00:00-0400 Diastolic blood pressure 39 mm[Hg] Zoie Gonzales MD Work Phone: [facility] Work Phone: 03-18-2021 00:00-0400 Respiratory rate 16 /min Zoie Gonzales MD Work Phone: [facility] Work Phone: 03-18-2021 00:00-0400 Systolic blood pressure 103 mm[Hg] Zoie Gonzales MD Work Phone: [facility] Work Phone: 03-17-2021 07:29-0400 Body height 188 cm Zoie Gonzales MD Work Phone: [employer] Work Phone: 03-17-2021 07:29-0400 Body mass index (BMI) [Ratio] 38.27 kg/m2 Zoie Gonzales MD Work Phone: [employer] Work Phone: 03-17-2021 07:29-0400 Body weight 135.2 kg Zoie Gonzales MD Work Phone: [employer] Work Phone: 09-15-2019 14:50-0400 Body Temperature 98.6 [degF] [facility] [place] 09-15-2019 14:50-0400 BP Diastolic 66 mm[Hg] [employer] [place] 09-15-2019 14:50-0400 BP Systolic 132 mm[Hg] [facility] [place] 09-15-2019 14:50-0400 Pulse (Heart Rate) 61 /min [employer] [facility], [place] 09-15-2019 14:50-0400 Pulse Oximetry 100 % [employer] [facility], [place] 09-15-2019 14:50-0400 Respiratory Rate 16 /min [facility] [place] 09-15-2019 04:48-0400 BMI (Body Mass Index) 35.23 kg/m2 [facility] [place] 09-15-2019 04:48-0400 Body weight 124.47 kg [facility], [place] 09-09-2019 07:55-0400 Body Temperature 97.9 [degF] [employer] [place] 09-09-2019 07:55-0400 BP Diastolic 74 mm[Hg] [facility] [place] 09-09-2019 07:55-0400 BP Systolic 133 mm[Hg] [facility] [place] 09-09-2019 07:55-0400 Pulse (Heart Rate) 61 /min Ari [facility], [place] 09-09-2019 07:55-0400 Pulse Oximetry 96 % Ari [facility] , [place] 09-09-2019 07:55-0400 Respiratory Rate 16 /[facility] [place] 09-08-2019 04:26-0400 BMI (Body Mass Index) 33.95 kg/m2 [facility] [place] [place] 09-08-2019 04:26-0400 Body weight 119.92 kg [place], [place] 09-06-2019 09:30-0400 Height 188 cm [place], [place] Encounters Encounter Date Encounter Type Care Provider Facility Start: 10-19-2024 End: 10-19-2024 Refill France Johnson CNP Work Phone: [facility] Comment on above: Primary hypertension (Primary Dx) Results Start: 10-18-2024 End: 10-18-2024 ambulatory Bernice Zarate RN [facility] [place] Start: 10-09-2024 End: 10-09-2024 [facility] Comment on above: CAD in [place] artery (Primary Dx); Chronic diastolic heart failure (HCC); Cardiomyopathy, ischemic Start: 09-28-2024 End: 11-06-2024 Telephone encounter [facility] Comment on above: Orders Start: 09-28-2024 End: 09-28-2024 Office outpatient visit 25 minutes France Johnson CNP [facility] Comment on above: CAD in [place] artery (Primary Dx); PAF (paroxysmal atrial fibrillation) (HCC); Essential hypertension; Mixed hyperlipidemia; Acute on chronic diastolic congestive heart failure (HCC) Start: 09-28-2024 End: 09-28-2024 ambulatory FRANCE SPAIN [facility] Start: 09-18-2024 End: 09-18-2024 Documentation procedure Bernice Zarate RN [facility] bor[facility] Comment on above: [facility] Outreach Start: 09-14-2024 End: 09-15-2024 Subsequent hospital visit by physician Dominguez Ortega MD Work Phone: [facility] Comment on above: Unstable angina (CMS /HCC) (HCC) (Primary Dx); Stented coronary artery; Stage 3a chronic kidney disease (HCC) Start: 09-14-2024 End: 09-15-2024 Unknown FINN FERRELL [facility] Start: 09-12-2024 End: 09-12-2024 ambulatory Miryam Casas [employer] - LABOR TRAINING MANAGER [facility] Start: 09-11-2024 End: 09-11-2024 ambulatory Finn Ferrell Facility:[facility] Start: 09-07-2024 End: 09-07-2024 Telephone encounter France Spain [employer] - LABOR TRAINING MANAGER Work Phone: [facility] Comment on above: Procedure Start: 08-31-2024 End: 08-31-[address] Finn Ferrell MD Work Phone: [facility] Work Phone: Start: 08-31-2024 End: 08-31-[address] Finn Ferrell MD -Laboratory, [facility] Start: 08-31-2024 End: 08-31-2024 ambulatory Finn Ferrell Facility:[facility] Start: 08-29-2024 End: 08-29-2024 Telephone encounter France Spain APRN - LABOR TRAINING MANAGER Work Phone: [facility] Start: 08-24-2024 End: 08-24-2024 Office outpatient visit 25 minutes France Spain [employer] - LABOR TRAINING MANAGER Work Phone: [facility] Comment on above: PAF (paroxysmal atri al fibrillation) (HCC) (Primary Dx); CAD in [place] artery; Essential hypertension; Mixed hyperlipidemia; Obesity (BMI 30-39.9) Start: 08-24-2024 End: 08-24-2024 [facility] Start: 08-24-2024 End: 08-24-2024 Subsequent hospital visit by physician France Johnson CNP Work Phone: [facility] [address] [facility] Comment on above: Palpitations; PAF (paroxysmal atrial fibrillation) (HCC) CAD in [place] artery ; PAF (paroxysmal atrial fibrillation) (HCC); Essential hypertension; Abnormal EKG Start: 08-24-2024 End: 08-24-2024 [facility] Start: 07-20-2024 End: 07-20-2024 Office outpatient visit 25 minutes France Johnson CNP Work Phone: [facility] [employer] [place] Comment on above: Palpitations (Primar y Dx); PAF (paroxysmal atrial fibrillation) (HCC); WATTS (dyspnea on exertion) Start: 07-20-2024 End: 07-20-2024 [facility] Start: 07-13-2024 End: 07-13-2024 Telephone encounter France Johnson CNP Work Phone: [facility] [employer] Comment on above: Appointment (Cancel and R/S) Start: 07-06-2024 End: 07-06-2024 Office outpatient visit 25 minutes [place] APRN - RIA Work Phone: [facility] [place] Comment on above: CAD in [place] artery (Primary Dx); PAF (paroxysmal atrial fibrillation) (HCC); Obesity (BMI 30-39.9); Essential hypertension; Mixed hyperlipidemia; Abnormal EKG Start: 07-06-2024 End: 07-06-2024 Telephone encounter Dominguez Ortega MD Work Phone: [facility] [place] Comment on above: Chest Pain Start: 07-06-2024 End: 07-06-2024 [facility] Start: 06-20-2024 End: 06-20-2024 ambulatory Finn Ferrell Facility:[facility] Start: 06-20-2024 End: 06-20-2024 Non-patient / Non-visit Dr. Juan Sams MD -[facility] Work Phone: Start: 06-20-2024 End: 06-20-[address] Finn Ferrell MD Work Phone: -Pulmonary Services/Neurology Work Phone: Start: 06-20-2024 End: 06-20-2024 ambulatory Finn Ferrell Facility:[facility] Start: 05-22-2024 End: 05-22-2024 Refill Dominguez Ortega MD Work Phone: [facility] Comment on above: CAD in [place] artery Start: 04-28-2024 End: 04-28-2024 Refill Christiane Jenkins METAL TILE LATHER - LABOR TRAINING MANAGER Work Phone: [facility] Start: 04-28-2024 End: 04-28-2024 ambulatory Finn Ferrell Facility:[facility] Start: 04-23-2024 End: 04-23-2024 Emergency department patient visit Finn Ferrell Facility:[facility] Start: 04-12-2024 End: 04-12-2024 ambulatory Finn Ferrell Facility:[facility] Start: 04-11-2024 End: 04-11-2024 ambulatory Finn Ferrell Facility:[facility] Start: 04-08-2024 End: 04-08-2024 Emergency department patient visit Finn Ferrell Facility:[facility] Start: 03-26-2024 End: 03-27-2024 Emergency department patient visit Finn Ferrell Facility:[facility] Start: 03-13-2024 End: 03-14-2024 Refill Kate Pelaez METAL TILE LATHER - LABOR TRAINING MANAGER Work Phone: [facility] Comment on above: CAD in [place] artery ; Presence of coronary angioplasty implant and graft Start: 03-13-2024 End: 03-13-2024 ambulatory Finn Ferrell Facility:[facility] Start: 03-12-2024 End: 03-12-2024 Emergency department patient visit Finn Ferrell Facility:[facility] Start: 03-09-2024 End: 03-09-2024 Refill Jg Dent METAL TILE LATHER - LABOR TRAINING MANAGER Work Phone: [facility] Comment on above: Unstable angina (CMS /HCC) (HCC) Paroxysmal atrial fi brillation (HCC); Coronary artery disease of [place] artery of [place] heart with stable angina pectoris (HCC) Start: 02-03-2024 ambulatory Finn Ferrell Facilit y:[facility] Start: 02-01-2024 End: 02-01-2024 Office outpatient visit 25 minutes Dominguez Ortega MD Work Phone: [facility] Comment on above: Obesity (BMI 30-39.9 ) (Primary Dx); CAD in [place] artery; Essential hypertension; Mixed hyperlipidemia Start: 02-01-2024 End: 02-01-2024 ambulatory DOMINGUEZ ORTEGA [facility] Start: 01-11-2024 End: 01-11-2024 ambulatory Finn Ferrell Facility:[facility] Start: 12-20-2023 End: 12-20-2023 Telephone encounter Dominguez Ortega MD Work Phone: [facility] Comment on above: Med Management Start: 12-01-2023 End: 12-01-2023 ambulatory Finn Ferrell Facility:[facility] Start: 10-22-2023 End: 10-22-2023 ambulatory Finn Ferrell [facility] Start: 10-04-2023 End: 10-04-2023 ambulatory Finn Ferrell Facility:[facility] Start: 09-13-2023 Refill France sheth METAL TILE LATHER - LABOR TRAINING MANAGER Work Phone: [facility] Comment on above: Unstable angina (CMS /HCC) (HCC) Start: 07-29-2023 End: 07-29-2023 Office outpatient visit 25 minutes [place] METAL TILE LATHER - LABOR TRAINING MANAGER Work Phone: [facility] Comment on above: CAD in [place] artery (Primary Dx); Essential hypertension, benign; Mixed hyperlipidemia; PAF (paroxysmal atrial fibrillation) (HCC); Chronic diastolic heart failure (HCC) Start: 07-13-2023 End: 07-13-[address] Finn Ferrell Work Phone: [facility] Work Phone: Start: 07-13-2023 End: 07-13-[address] Finn Ferrell Work Phone: [facility] Start: 07-12-2023 End: 07-12-[address] Finn Ferrell Work Phone: [facility] Work Phone: Start: 07-12-2023 End: 07-12-[address] Finn Ferrell Work Phone: [facility]-Nuclear Medicine, [facility] Work Phone: Start: 07-09-2023 End: 07-09-2023 Admission to same day surgery center Dr. Finn Ferrell Work Phone: [facility]-Endoscopy Work Phone: Start: 07-09-2023 End: 07-09-[address] Finn Ferrell Work Phone: [facility] Work Phone: Start: 07-05-2023 End: 07-05-2023 Emergency department patient visit Dr. Finn Ferrell Work Phone: [facility]-Emergency Department Work Phone: Start: 07-01-2023 Telephone encounter Chris zavaleta MD Work Phone: [facility] Sleep [facility] Comment on above: Return call request/ sleep study orders Start: 06-29-2023 End: 06-29-[address] Finn Ferrell Work Phone: [facility] Work Phone: Start: 06-17-2023 End: 06-17-2023 Office outpatient visit 25 minutes [place] APRN - LABOR TRAINING MANAGER Work Phone: [facility] Comment on above: CAD in [place] artery (Primary Dx); Chronic diastolic heart failure (HCC); Essential hypertension, benign; PAF (paroxysmal atrial fibrillation) (HCC); Mixed hyperlipidemia Start: 06-15-2023 Refill Maureen Sung [facility] Start: 05-20-2023 Non-patient / Non-visit Dr. Tanika Ferrell Work Phone: [facility] Start: 05-20-2023 End: 05-20-2023 Admission to same day surgery center Dr. Finn Ferrell Work Phone: [facility]-Endoscopy Work Phone: Start: 05-20-2023 End: 05-20-[address] 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 Finn Ferrell Work Phone: [facility]-Laboratory Work Phone: Start: 04-08-2023 End: 04-08-2023 Office outpatient visit 25 minutes [place] METAL TILE LATHER - LABOR TRAINING MANAGER Work Phone: [facility] Comment on above: CAD in [place] artery (Primary Dx); Chronic diastolic heart failure (HCC); Essential hypertension, benign; PAF (paroxysmal atrial fibrillation) (HCC); Mixed hyperlipidemia Start: 04-07-2023 End: 04-07-[address] Finn Ferrell Work Phone: [facility] Work Phone: Start: 04-01-2023 Myrtle marrufo MD Work Phone: [facility] Start: 03-29-2023 End: 03-29-2023 Office outpatient visit 15 minutes Chris Boyce MD Work Phone: [facility] Comment on above: HIPOLITO (obstructive sle ep apnea) (Primary Dx) Start: 03-29-2023 End: 03-29-[address] Finn Ferrell Work Phone: [facility] Work Phone: Start: 03-29-2023 End: 03-29-[address] Finn Ferrell Work Phone: [facility] Work Phone: Start: 03-24-2023 End: 03-24-[address] Finn Ferrell Work Phone: [facility] Work Phone: Start: 03-24-2023 End: 03-24-[address] Finn Ferrell Work Phone: [facility]-Laboratory Work Phone: Start: 03-18-2023 End: 03-18-2023 Office outpatient visit 25 minutes [place] METAL TILE LATHER - LABOR TRAINING MANAGER Work Phone: [facility] Comment on above: CAD in [place] artery (Primary Dx); Essential hypertension, benign; Chronic diastolic heart failure (HCC); PAF (paroxysmal atrial fibrillation) (HCC); Mixed hyperlipidemia Start: 03-01-2023 End: 03-01-2023 Subsequent hospital visit by physician Zoie Gonzales MD Work Phone: [facility] Cath/EP Lab Comment on above: Atherosclerotic hear t disease of [place] coronary artery with other forms of angina pectoris (HCC) Start: 02-24-2023 ambulatory [place] J Sierra sheth METAL TILE LATHER - LABOR TRAINING MANAGER Work Phone: [facility] Start: 02-22-2023 End: 02-22-2023 Office outpatient visit 25 minutes Zoie Gonzales MD Work Phone: [facility] Comment on above: Atherosclerotic hear t disease of [place] coronary artery with other forms of angina pectoris (HCC); NSTEMI (non-ST elevated myocardial infarction) (CMS/HCC) (HCC); Hypertension, unspecified type; PAF (paroxysmal atrial fibrillation) (HCC) Start: 02-19-2023 End: 02-19-2023 ambulatory [facility] Work Phone: Start: 02-19-2023 End: 02-19-[address] Finn Ferrell Work Phone: [facility]-Laboratory Work Phone: Start: 02-09-2023 Telephone encounter Zoie Gonzales MD Work Phone: [facility] Comment on above: Med Management Start: 02-05-2023 End: 02-05-2023 ambulatory No Primary Care Physician [facility] Work Phone: Start: 02-05-2023 End: 02-05-2023 Patient encounter procedure No Primary Care Physician [facility] Start: 02-02-2023 End: 02-02-2023 Office outpatient visit 25 minutes Kate Pelaez METAL TILE LATHER - LABOR TRAINING MANAGER Work Phone: [facility] Comment on above: WATTS (dyspnea on exer tion) (Primary Dx); CAD in [place] artery; PAF (paroxysmal atrial fibrillation) ([facility]/HCC) ([facility]); [facility] current use of anticoagulant; Stage 3a chronic kidney disease (HCC); Primary hypertension; Other hyperlipidemia; Presence of coronary angioplasty implant and graft Start: 01-27-2023 Refill [place] sheth METAL TILE LATHER - LABOR TRAINING MANAGER Work Phone: [facility] Comment on above: Presence of coronary angioplasty implant and graft Start: 01-27-2023 End: 01-27-2023 ambulatory No Primary Care Physician [facility] Work Phone: Start: 01-27-2023 End: 01-27-2023 Patient encounter procedure No Primary Care Physician [facility]-Laboratory Work Phone: Start: 01-26-2023 Telephone encounter Zoie Gonzales MD Work Phone: [facility] Comment on above: symptoms Start: 01-01-2023 Telephone encounter [place] METAL TILE LATHER - LABOR TRAINING MANAGER Work Phone: [facility] Comment on above: hematoma Start: 12-30-2022 Orders Only [place] sheth METAL TILE LATHER - LABOR TRAINING MANAGER Work Phone: [facility] Start: 12-28-2022 End: 12-29-2022 Emergency department patient visit No Primary Care Physician [facility]-Emergency Department Work Phone: Start: 12-14-2022 End: 12-14-2022 ambulatory No Primary Care Physician [facility] Work Phone: Start: 12-14-2022 End: 12-14-2022 Patient encounter procedure No Primary Care Physician [facility] Start: 12-08-2022 Orders Only Patricia cole METAL TILE LATHER - LABOR TRAINING MANAGER Work Phone: [facility] Comment on above: Renal insufficiency (Primary Dx) Start: 12-07-2022 Office outpatient vi sit 10 minutes Chris Boyce MD Work Phone: [facility] Comment on above: HIPOLITO (obstructive sle ep apnea) (Primary Dx) Start: 12-06-2022 End: 12-08-2022 Evaluation and management of inpatient Jersey Oneil MD Work Phone: [facility] Comment on above: Chest pain (Primary Dx) Start: 12-06-2022 Non-patient / Non-visit Self Referchuckie echols [facility] Work Phone: Start: 12-05-2022 End: 12-06-2022 Emergency department patient visit Self Referred [facility]Emergency Department Work Phone: Start: 12-03-2022 End: 12-03-2022 Office outpatient visit 25 minutes Zoie Gonzales MD Work Phone: [facility] Comment on above: CAD in [place] artery ; Primary hypertension; NSTEMI (non-ST elevated myocardial infarction) ([facility]/HCC) ([facility]); PAF (paroxysmal atrial fibrillation) ([facility]) ([facility]); Other hyperlipidemia Start: 11-25-2022 End: 11-25-2022 ambulatory Self Referred [facility] Work Phone: Start: 11-25-2022 End: 11-25-2022 Patient encounter procedure Self Referred [facility] Start: 11-20-2022 End: 11-21-2022 ambulatory Chris Boyce MD Work Phone: [facility] SLEEP LAB Comment on above: HIPOLITO (obstructive sle ep apnea) Start: 11-18-2022 End: 11-18-2022 Subsequent hospital visit by physician Samra Gonzalez APRN - [facility] Work Phone: [facility] [address] [facility] Non-Invasive Cardiology Comment on above: Localized edema Start: 11-11-2022 End: 11-11-2022 Office outpatient visit 15 minutes Chris Boyce MD Work Phone: [facility] Comment on above: HIPOLITO (obstructive sle ep apnea) (Primary Dx); Transient disorder of initiating or maintaining sleep Start: 10-27-2022 End: 10-27-[address] Vinayak Ontiveros Work Phone: [facility] Work Phone: Start: 10-27-2022 End: 10-27-[address] Vinayak Ontiveros Work Phone: [facility]-Laboratory Start: 10-27-2022 End: 10-27-[address] Vinayak Ontiveros Work Phone: [facility] Start: 10-22-2022 End: 10-22-[address] Vinayak Ontiveros Work Phone: [facility] Work Phone: Start: 10-22-2022 End: 10-22-[address] [facility] Start: 10-14-2022 Documentation procedure Samra Gonzalez METAL TILE LATHER - LABOR TRAINING MANAGER Work Phone: [facility] Start: 10-06-2022 End: 10-06-[address] [facility] Start: 10-01-2022 Orders Only Samra Mart in METAL TILE LATHER - LABOR TRAINING MANAGER Work Phone: [facility] Comment on above: WATTS (dyspnea on exer tion) (Primary Dx); Localized edema Start: 09-29-2022 End: 09-29-2022 ambulatory No Primary Care Physician [facility] Work Phone: Start: 09-29-2022 End: 09-29-[address] Vinay[facility] Ontiveros [facility] Start: 09-28-2022 End: 09-28-2022 Office outpatient visit 25 minutes Samra Gonzalez METAL TILE LATHER - LABOR TRAINING MANAGER Work Phone: [facility] Comment on above: Coronary artery dise ase involving [place] coronary artery of [place] heart without angina pectoris (Primary Dx); Localized edema; PAF (paroxysmal atrial fibrillation) (CMS/HCC) (HCC); Primary hypertension; Chronic obstructive pulmonary disease, unspecified COPD type (HCC); WATTS (dyspnea on exertion); Shortness of breath on exertion Start: 09-25-2022 End: 09-25-[address] Vinayak Ontiveros Work Phone: [facility] Work Phone: Start: 09-25-2022 End: 09-25-[address] Vinayak Ontiveros Work Phone: [facility], [facility] Start: 09-22-2022 End: 09-22-[address] Vinayak Ontiveros Work Phone: [facility] Work Phone: Start: 09-22-2022 End: 09-22-[address] Vinayak Ontiveros Work Phone: [facility] Start: 08-21-2022 Non-patient / Non-visit Dr. Billy Ontiveros Work Phone: [facility] Start: 08-20-2022 Non-patient / Non-visit Dr. Billy Ontiveros Work Phone: [facility] Start: 08-20-2022 End: 08-20-2022 Non-patient / Non-visit Dr. Vinayak Ontiveros Work Phone: [facility] Start: 08-20-2022 End: 08-21-2022 Evaluation and management of inpatient Dr. Vinayak Ontiveros Work Phone: [facility]-Medical Surgical 3 Start: 08-20-2022 End: 08-21-[address] Vinayak Ontiveros Work Phone: [facility] Work Phone: Start: 08-12-2022 End: 08-12-[address] Vinayak Ontiveros Work Phone: [facility] Start: 07-28-2022 End: 07-28-[address] Vinayak Ontiveros Work Phone: [facility] Start: 07-06-2022 End: 07-06-2022 Office outpatient visit 25 minutes Zoie Gonzales MD Work Phone: [facility] Comment on above: CAD in [place] artery ; Primary hypertension; PAF (paroxysmal atrial fibrillation) (CMS/HCC) (HCC); Other hyperlipidemia Start: 05-20-2022 End: 05-20-[address] Vinayak Ontiveros Work Phone: [facility] Start: 05-19-2022 End: 05-19-[address] Vinayak Ontiveros Work Phone: [facility] Start: 04-01-2022 End: 04-01-[address] Vinayak Ontiveros Work Phone: [facility] Work Phone: Start: 04-01-2022 End: 04-01-[address] Vinayak Ontiveros Work Phone: [facility] Start: 01-27-2022 End: 01-27-[address] Vinayak Ontiveros Work Phone: [facility] Start: 01-12-2022 Non-patient / Non-visit Dr. Billy Ontiveros Work Phone: [facility] Start: 01-12-2022 End: 01-12-2022 Admission to same day surgery center Dr. Vinayak Ontiveros Work Phone: [facility]-Endoscopy Start: 01-12-2022 End: 01-12-2022 Non-patient / Non-visit Dr. Vinayak Ontiveros Work Phone: [facility] Start: 12-30-2021 End: 12-30-2021 Subsequent hospital visit by physician Tree Gonzales MD Work Phone: [facility] Function Lab Comment on above: Chronic obstructive pulmonary disease, unspecified (HCC); COPD with asthma (HCC) Start: 12-29-2021 End: 12-29-[address] Vinayak Ontiveros Work Phone: [facility] Start: 12-01-2021 End: 12-01-2021 Subsequent hospital visit by physician Zoie Gonzales MD Work Phone: [facility] [employer] Comment on above: Arrived Start: 10-31-2021 End: 10-31-2021 Patient encounter procedure [facility]Laboratory Start: 10-09-2021 End: 10-09-[address] [facility] Start: 09-09-2021 End: 09-10-2021 Emergency department patient visit Dr. Vinayak Ontiveros Work Phone: [facility]-Emergency Department Start: 08-01-2021 Non-patient / Non-visit Dr. Billy Ontiveros Work Phone: [facility] Start: 08-01-2021 End: 08-01-[address] Vinayak Ontiveros Work Phone: [facility]-Pulmonary Services/Neurology Start: 07-02-2021 End: 07-02-[address] Vinayak Ontiveros Work Phone: [facility]-Cat Scan, [facility] Start: 05-07-2021 End: 05-07-2021 Subsequent hospital visit by physician Reba Reed MD Work Phone: [facility] Start: 03-17-2021 End: 03-18-2021 Subsequent hospital visit by physician Zoie Gonzales MD Work Phone: [facility] 1[facility] Capacity Management Comment on above: CAD in [place] artery (Primary Dx); Coronary artery disease involving [place] coronary artery of [place] heart without angina pectoris Start: 03-10-2021 End: 03-10-2021 Subsequent hospital visit by physician [place] METAL TILE LATHER - LABOR TRAINING MANAGER Work Phone: [facility] [address] [facility] Comment on above: Stable angina pector is (HCC); Coronary artery disease involving [place] coronary artery of [place] heart without angina pectoris Start: 10-22-2020 End: 10-22-2020 Subsequent hospital visit by physician Tree Gonzales MD Work Phone: [facility] Comment on above: Pneumonia due to COV ID-19 virus; ILD (interstitial lung disease) (HCC); Pneumoconiosis (HCC) Pneumonia due to COV ID-19 virus; Interstitial lung disease (HCC); Pneumoconiosis (HCC) Start: 09-15-2019 End: 09-15-2019 Emergency department patient visit Justen Martin Work Phone: [facility] Comment on above: Chest pain, unspecif ied type (Primary Dx) Start: 09-05-2019 End: 09-09-2019 Emergency department patient visit Ari Rueda Work Phone: [facility] Capacity Management Comment on above: Chest pain, unspecif ied type (Primary Dx); Ventricular tachycardia (HCC); PAF (paroxysmal atrial fibrillation) (HCC) Procedures Date Procedure Procedure Detail Performing Clinician Start: 09-15-2024 Comprehensive metabolic panel Rebecca verdin METAL TILE LATHER - [email or web address] Work Phone: Start: 09-15-2024 Lipid panel Rebecca De Dios METAL TILE LATHER [employer] Work Phone: Start: 09-15-2024 Lipid 1996 panel - Serum or Plasma Dominguez Ortega MD Work Phone: Start: 09-14-2024 Ecg routine ecg w/least 12 lds trcg only w/o i&r Marycruz Franks MD Work Phone: Start: 09-14-2024 Cardiac catheterization study [place] METAL TILE LATHER - LABOR TRAINING MANAGER Work Phone: Start: 09-14-2024 Percutaneous coronary intervention [place] METAL TILE LATHER - LABOR TRAINING MANAGER Work Phone: Start: 09-14-2024 End: 09-14-2024 POCT ACT Dominguez Ortega MD Work Phone: Start: 09-14-2024 Ecg routine ecg w/least 12 lds trcg only w/o i&r Miryam Casas METAL TILE LATHER - LABOR TRAINING MANAGER Work Phone: Start: 08-24-2024 Follow-up visit Follow-up [place] Start: 08-24-2024 TTE w or wo fol wcon,Doppler [place] METAL TILE LATHER - LABOR TRAINING MANAGER Work Phone: Start: 07-06-2024 Ecg routine ecg w/least 12 lds trcg only w/o i&r Dominguez Ortega MD Work Phone: Start: 06-20-2024 Plain chest X-ray Dr. Finn Ferrell MD Work Phone: Start: 06-20-2024 Thyrotropin [Units/volume] in Serum or Plasma Dominguez Ortega MD Work Phone: Start: 12-01-2023 Thyrotropin [Units/volume] in Serum or Plasma Dominguez Ortega MD Work Phone: Start: 07-12-2023 Rad[address] gastric empt[address] study Dr. Finn Ferrell Work Phone: Start: 07-09-[address] Finn Ferrell Work Phone: Start: 07-05-2023 Computed tomography of abdomen and pelvis with intravenous contrast Dr. Finn Ferrell Work Phone: Start: 05-20-[address] Finn kaur Work Phone: Start: 03-29-[address] Finn connor Work Phone: Start: 03-01-2023 Cardiac catheterization study Zoie Gonzales MD Work Phone: Start: 02-23-2023 Ecg routine ecg w/least 12 lds w/i&r Zoie Gonzales MD Work Phone: Start: 02-19-2023 Lipid 1996 panel - Serum or Plasma [place] APRN - LABOR TRAINING MANAGER Work Phone: Start: 02-02-2023 Ecg routine ecg w/least 12 lds trcg only w/o i&r Zoie Gonzales MD Work Phone: Start: 12-30-2022 Basic metabolic 2000 panel - Serum or Plasma [place] APRN - LABOR TRAINING MANAGER Work Phone: Start: 12-28-2022 Plain x-ray of pelvis and lower extremity No Primary Care Physician Start: 12-28-2022 Plain X-ray of tibia and fibula No Prima ry Care Physician Start: 12-28-2022 X-ray of lumbar spine, two or three views No Primary Care Physician Start: 12-28-2022 CT of head without contrast No Primary C are Physician Start: 12-07-2022 End: 12-08-2022 Basic metabolic panel calcium total Manuel Edgar MD Work Phone: Start: 12-08-2022 C-reactive protein Manuel Edgar MD Work Phone: Start: 12-07-2022 Us retroperitoneal real time w/image limited Manuel Edgar MD Work Phone: Start: 12-07-2022 Urnls dip stick/tablet rgnt auto w/o microscopy Manuel Edgar MD Work Phone: Start: 12-07-2022 Iadna respiratry probe & rev trnscr 12-25 target Manuel Edgar MD Work Phone: Start: 12-07-2022 Radiologic exam chest single view Manuel Edgar MD Work Phone: Start: 12-07-2022 Ecg routine ecg w/least 12 lds trcg only w/o i&r Terry Drew MD Work Phone: Start: 12-07-2022 Lipid 1996 panel - Serum or Plasma Chris Boyce MD Work Phone: Start: 12-07-2022 Comprehensive metabolic panel Terry proctor MD Work Phone: Start: 12-07-2022 Lipid panel Terry Drew MD Work Phone: Start: 12-06-2022 Ecg routine ecg w/least 12 lds trcg only w/o i&r Terry Drew MD Work Phone: Start: 12-06-2022 Assay of troponin quantitative Terry magallanes MD Work Phone: Start: 12-05-2022 Plain chest X-ray Self Referred Start: 11-27-2022 POLYSOMNOGRAPHY Chris Boyce MD Work Phone: Start: 11-18-2022 Echo tthrc r-t 2d w/wom-mode compl spec&colr d Sadine D Oredein METAL TILE LATHER - LABOR TRAINING MANAGER Work Phone: Start: 10-29-2022 Thyrotropin [Units/volume] in Serum or Plasma Chris Boyce MD Work Phone: Start: 09-28-2022 Ecg routine ecg w/least 12 lds w/i&r Zoie Gonzales MD Work Phone: Start: 09-25-2022 US scan of thyroid Dr. Vinayak Ontiveros Work Phone: Start: 08-20-2022 Repair of musculotendinous cuff of shoulder Dr. Vinayak Ontiveros Work Phone: Start: 08-12-2022 Plain chest X-ray Dr. Vinayak Ontiveros Work Phone: Start: 07-06-2022 Ecg routine ecg w/least 12 lds trcg only w/o i&r Zoie Gonzales MD Work Phone: Start: 01-12-[address] Vinayak Ontiveros Work Phone: Start: 12-30-2021 Brncdilat rspse spmtry pre&post-brncdilat admn Tree Gonzales MD Work Phone: Start: 12-01-2021 CARDIAC CATH NURSING LOG Physician Mandi yang Start: 12-01-2021 End: 12-01-2021 Ecg routine ecg w/least 12 lds w/i&r Milagro Jaimes METAL TILE LATHER - LABOR TRAINING MANAGER Work Phone: Start: 12-01-2021 Basic metabolic panel calcium total Milagro Jaimes METAL TILE LATHER - LABOR TRAINING MANAGER Work Phone: Start: 10-31-2021 Thyrotropin [Units/volume] in Serum or Plasma Zoie Gonzales MD Work Phone: Start: 10-09-[address] Vinayak romano Work Phone: Start: 09-09-2021 CT angiography of head and neck Dr. Ashutosh Ontiveros Work Phone: Start: 09-09-2021 CT of head without contrast Dr. Vinayak moulton Work Phone: Start: 08-05-2021 Lipid 1996 panel - Serum or Plasma Zoie Gonzales MD Work Phone: Start: 07-02-2021 Computed tomography of abdomen and pelvis with contrast Dr. Vinayak Ontiveros Work Phone: Start: 03-18-2021 Ecg routine ecg w/least 12 lds w/i&r Zoie Gonzales MD Work Phone: Start: 03-18-2021 Blood count complete automated Milagro matias METAL TILE LATHER - LABOR TRAINING MANAGER Work Phone: Start: 03-17-2021 Ecg routine ecg w/least 12 lds w/i&r Zoie Gonzales MD Work Phone: Start: 03-17-2021 CARDIAC CATH NURSING LOG 3m Scanning Start: 03-17-2021 Cardiac catheterization Zoie Gonzales MD Work Phone: Start: 03-17-2021 End: 03-17-2021 Coagulation time activated Zoie tolliver MD Work Phone: Start: 03-10-2021 Basic metabolic panel calcium total [place] Jason Spain METAL TILE LATHER - LABOR TRAINING MANAGER Work Phone: Start: 10-22-2020 Nebulizer therapy Tree Gonzales MD Work Phone: Start: 10-22-2020 Brncdilat rspse spmtry pre&post-brncdilat admn Tree Gonzales MD Work Phone: Start: 06-17-2020 H/O: artificial joint Presence of left artificial shoulder joint [place] APRN - LABOR TRAINING MANAGER Work Phone: Start: 06-17-2020 History of operative procedure on knee History of knee joint replacement [place] METAL TILE LATHER - LABOR TRAINING MANAGER Work Phone: Start: 06-17-2020 History of placement of stent for coronary artery disease History of coronary artery stent placement [place] METAL TILE LATHER - LABOR TRAINING MANAGER Work Phone: Start: 02-20-2020 Colonoscopy Zoie Gonzales MD Work Phone: Start: 09-15-2019 Ecg routine ecg w/least 12 lds w/i&r Brian Yo Work Phone: Start: 09-15-2019 Assay of troponin quantitative Brian Ne pal Work Phone: Start: 09-15-2019 Radiologic exam chest single view Justen Gerberumilli Work Phone: Start: 09-15-2019 Assay of lipase Justen Adusumilli Work Phone: Start: 09-15-2019 Assay of troponin quantitative Justen Ricki sumilli Work Phone: Start: 09-15-2019 Basic metabolic panel calcium total Justen Adusumilli Work Phone: Start: 09-15-2019 Blood count complete auto&auto difrntl wbc Justen Adusumilli Work Phone: Start: 09-15-2019 Ecg routine ecg w/least 12 lds w/i&r Justen Adusumilli Work Phone: Start: 09-09-2019 Blood count complete auto&auto difrntl wbc George M Reed Work Phone: Start: 09-09-2019 Blood count complete automated George Reed Work Phone: Start: 09-08-2019 CARDIAC CATH NURSING LOG 3m Scanning Start: 09-08-2019 DIAGNOSTIC CARDIAC SOLE ROUNDING MACHINE OPERATOR PROCEDURE Miryam Wilson Lore Work Phone: Start: 09-08-2019 ECHOCARDIOGRAM EXERCISE STRESS TEST Zoie Wilson Mo Work Phone: Start: 09-08-2019 Basic metabolic panel calcium total Yemi South Work Phone: Start: 09-07-2019 ECHOCARDIOGRAM TRANSESOPHAGEAL Subhash Lopez Work Phone: Start: 09-07-2019 Ecg routine ecg w/least 12 lds w/i&r Miguel A Iler Work Phone: Start: 09-07-2019 CARDIOVERSION DEFIBRILLATION Miguel A Iler Work Phone: Start: 09-06-2019 Ecg routine ecg w/least 12 lds w/i&r Yemi South Work Phone: Start: 09-06-2019 Assay of magnesium Yemi South Work Phone: Start: 09-06-2019 Assay of thyroid stimulating hormone tsh Yemi South Work Phone: Start: 09-06-2019 Assay of troponin quantitative Yemi robins Work Phone: Start: 09-06-2019 Basic metabolic panel calcium total Yemi South Work Phone: Start: 09-05-2019 Assay of troponin quantitative Yemi Yomi arasharee Work Phone: Start: 09-05-2019 Assay of troponin quantitative Yemi Yomi arasharee Work Phone: Start: 09-05-2019 Assay of magnesium Ari R Rueda Work Phone: Start: 09-05-2019 Assay of phosphorus inorganic Ari R Rueda Work Phone: Start: 09-05-2019 Assay of troponin quantitative Ari Rueda Work Phone: Start: 09-05-2019 Basic metabolic panel calcium total Ari Rueda Work Phone: Start: 09-05-2019 Blood count complete auto&auto difrntl wbc Ari Rueda Work Phone: Start: 09-05-2019 Natriuretic peptide Ari Rueda Work Phone: Start: 09-05-2019 Radiologic exam chest single view Ari Rueda Work Phone: Start: 09-05-2019 End: 09-05-2019 Ecg routine ecg w/least 12 lds w/i&r Ari Rueda Work Phone: H/O: artificial joint History of left shoulder replacement Dr. Vinayak Ontiveros Work Phone: History of cholecystectomy Hx of cholecys tectomy Dr. Vinayak Ontiveros Work Phone: Comment on above: 10/30/19 History of operative procedure on knee History of knee joint replacement Dr. Vinayak Ontiveros Work Phone: History of placement of stent for coronary artery disease History of heart artery stent Dr. Vinayak Ontiveros Work Phone: Comment on above: X3 1 History of repair of inguinal hernia History of inguinal hernia repair Dr. Vinayak Ontiveros Work Phone: Plan of Treatment Date Care Activity Detail Author Start: 02-19-2030 Screening for malignant neoplasm of colon [facility] Start: 09-15-2029 Lipid panel Lipid Panel [facility] [employer] Start: 02-20-2028 Lipid panel Lipid Panel [facility] [employer] Start: 12-08-2027 Lipid panel Lipid Panel [facility] [employer] Start: 08-05-2026 Lipid panel Lipid Panel [facility] [employer] Start: 09-15-2025 Creatinine measurement Creatinine Level [facility] [employer] Start: 09-15-2025 Potassium measurement Potassium Level [facility] [employer] Start: 08-24-2025 Echocardiography Echocardiogram [facility] Start: 06-20-2025 Creatinine measurement Creatinine Level [facility] [employer] Start: 06-20-2025 Potassium measurement [facility] Start: 06-20-2025 Thyroid stimulating hormone measurement TSH Level [facility] [employer] Start: 05-12-2025 Medicare Annual Wellness (AWV) Medicare Annual Wellness (AWV) [facility] Start: 02-07-2025 End: 02-07-2025 Patient encounter procedure [facility] [place] Start: 02-07-2025 End: 10-10-2026 US Heart Transthoracic Transthoracic echocardiogram (TTE) complete with contrast, bubble, strain, and 3D PRN CV Echocardiography Routine Cardiomyopathy, ischemic Expected: 02/07/2025 (Approximate), Expires: 10/10/2026 [facility] [employer] [facility] Work Phone: Comment on above: Expected: 02/07/2025 (Approximate), Expi res: 10/10/2026 Start: 01-22-2025 Influenza vaccination Influenza Vaccine (Season Ended) [facility] Start: 01-10-2025 Creatinine measurement Creatinine Level [facility] Start: 01-10-2025 Potassium measurement Potassium Level [facility] Start: 12-28-2024 End: 12-28-2024 Patient encounter procedure 12/28/2024 11:00 AM EDT [facility] [address] [place] [phone] [place], METAL TILE LATHER - LABOR TRAINING MANAGER [address] [facility] [address] [place] [address] [facility] Start: 11-30-2024 Thyroid stimulating hormone measurement TSH Level [facility] Start: 10-24-2024 End: 10-24-2024 Patient encounter procedure 10/24/2024 1:00 PM EDT Office Visit [facility] [address] [place] [phone] [place] APRN - LABOR TRAINING MANAGER [address] [facility] [address] [place] [address] [facility] Start: 09-28-2024 End: 09-28-2024 Patient encounter procedure 09/28/2024 11:30 AM EDT Office Visit [facility] [address] [place] [phone] [place], METAL TILE LATHER - LABOR TRAINING MANAGER [address] [facility] [address] [place] [address] [facility] Start: 09-14-2024 End: 09-14-2024 Admission to same day surgery center 09/14/2024 11:00 AM EDT - 09/14/2024 12:00 PM EDT Surgery [facility] [address] [place] [phone] Dominguez Ortega MD [address] [facility] [address] [place] [address] Left heart cath / coronary angiography [facility] Comment on above: Left heart cath / coronary angiography Start: 09-14-2024 Subsequent hospital visit by physician [facility] Comment on above: Unstable angina (CMS/HCC) (HCC) Start: 09-07-2024 End: 09-07-2025 Basic metabolic 1998 panel - Serum or Plasma Basic metabolic panel Lab Routine Unstable angina (CMS/HCC) (HCC) Expected: 09/07/2024 (Approximate), Expires: 09/07/2025 [facility] Work Phone: Comment on above: Expected: 09/07/2024 (Approximate), Expi res: 09/07/2025 Start: 09-07-2024 End: 09-07-2025 CBC W Auto Differential panel - Blood CBC auto differential Lab Routine Unstable angina (CMS/HCC) (HCC) Expected: 09/07/2024 (Approximate), Expires: 09/07/2025 [facility] Comment on above: Expected: 09/07/2024 (Approximate), Expi res: 09/07/2025 Start: 08-24-2024 End: 08-24-2024 Patient encounter procedure [facility] [address] Non-Invasive Cardiology Start: 08-10-2024 End: 08-10-2024 Patient encounter procedure 08/10/2024 3:00 PM EDT Appointment [facility] [address] Non-Invasive Cardiology [address] [place] [phone] [place] METAL TILE LATHER - LABOR TRAINING MANAGER [address] [place] [address] [facility] [address] [facility] Non-Invasive Cardiology Start: 07-20-2024 End: 07-20-2026 Cardiac holter monitor (3-7 days) Cardiac holter monitor (3-7 days) CV Cardiac Services Routine Palpitations PAF (paroxysmal atrial fibrillation) ([facility]) Expected: 07/20/2024, Expires: 07/20/2026 [employer] Work Phone: Comment on above: Expected: 07/20/2024, Expires: Start: 07-20-2024 End: 07-20-2024 Patient encounter procedure 07/20/2024 2:00 PM EST Office Visit [facility] [address] [place] [phone] [place] METAL TILE LATHER - LABOR TRAINING MANAGER [address] [place] [phone] [facility] [place] Start: 07-13-2024 End: 07-13-2024 Patient encounter procedure 07/13/2024 1:30 PM EST [facility] [address] [place] [address] [place] METAL TILE LATHER - LABOR TRAINING MANAGER [address] [place] [address] [facility] [place] Start: 07-06-2024 End: 07-06-2026 US Heart Transthoracic Transthoracic echocardiogram (TTE) complete with contrast, bubble, strain, and 3D PRN CV Echocardiography Routine CAD in [place] artery PAF (paroxysmal atrial fibrillation) ([facility]) Essential hypertension Abnormal EKG Expected: 07/06/2024 (Approximate), Expires: 07/06/2026 [employer] Work Phone: Comment on above: Expected: 07/06/2024 (Approximate), Expi res: 07/06/2026 Start: 04-09-2024 Creatinine measurement Creatinine Level [facility] [employer] Start: 04-09-2024 Potassium measurement Potassium Level [facility] [employer] Start: 03-09-2024 End: 03-09-2025 CBC panel - Blood by Automated count CBC Lab Routine Paroxysmal atrial fibrillation (HCC) Coronary artery disease of [place] artery of [place] heart with stable angina pectoris (HCC) Expected: 03/09/2024 (Approximate), Expires: 03/09/2025 [facility] [employer] Work Phone: Comment on above: Expected: 03/09/2024 (Approximate), Expi res: 03/09/2025 Start: 02-20-2024 Creatinine measurement Creatinine Level [facility] [employer] Start: 02-20-2024 Potassium measurement Potassium Level [facility] [employer] Start: 02-01-2024 End: 02-01-2024 Patient encounter procedure 02/01/2024 2:15 PM EDT Office Visit [facility] [employer] [facility] [address] [place] [phone] Dominguez Ortega MD [address] [place] [address] [facility] [employer] [facility] Start: 01-30-2024 Creatinine measurement Creatinine Level [facility] [employer] Start: 01-30-2024 Potassium measurement Potassium Level [facility] [employer] Start: 01-23-2024 COVID-19 Vaccine ( season) COVID-19 Vaccine ( season) [facility] [employer] Start: 01-23-2024 COVID-19 Vaccine ( season) COVID-19 Vaccine ( season) [facility] [employer] Start: 01-23-2024 Influenza vaccination [facility] [employer] Start: 12-09-2023 Creatinine measurement Creatinine Level [facility] [employer] Start: 12-09-2023 Potassium measurement Potassium Level [facility] [employer] Start: 12-08-2023 Creatinine measurement Creatinine Level [facility] [employer] Start: 12-08-2023 Potassium measurement Potassium Level [facility] [employer] Start: 12-04-2023 Creatinine measurement Creatinine Level [facility] [employer] Start: 12-04-2023 Potassium measurement Potassium Level [facility] [employer] Start: 11-19-2023 Echocardiography Echocardiogram [facility] [employer] Start: 10-30-2023 Creatinine measurement Creatinine Level [facility] Start: 10-30-2023 Potassium measurement Potassium Level [facility] Start: 10-30-2023 Thyroid stimulating hormone measurement TSH Level [facility] Start: 07-29-2023 End: 07-29-2023 Patient encounter procedure 07/29/2023 11:00 AM EST Office Visit [facility] [address] [place] [phone] [place], METAL TILE LATHER - LABOR TRAINING MANAGER [address] [facility] [address] [place] [address] [facility] Start: 07-09-2023 Patient discharge [facility] Start: 06-30-2023 End: 06-30-2023 Patient encounter procedure [facility] Start: 06-17-2023 End: 06-17-2023 Patient encounter procedure [facility] Start: 05-20-2023 Egd transoral biopsy single/multiple EGD BIOPSY SINGLE/MULTIPLE [facility] Start: 05-20-2023 Patient discharge [facility] Start: 05-10-2023 End: 05-10-2023 Patient encounter procedure 05/10/2023 1:30 PM EST Office Visit [facility] [address] [place] [phone] Tree Gonzales MD [address] [place] [address] [facility] Start: 05-10-2023 End: 05-10-2023 Patient encounter procedure 05/10/2023 10:30 AM EST Office Visit [facility] [address] [place] [phone] Tree Gonzales MD [address] [place], [place] [phone] [facility] Start: 04-22-2023 End: 04-08-2024 Basic metabolic 1998 panel - Serum or Plasma Basic metabolic panel Lab Routine CAD in [place] artery PAF (paroxysmal atrial fibrillation) (HCC) Expected: 04/22/2023 (Approximate), Expires: 04/08/2024 [facility] Phone: Comment on above: Expected: 04/22/2023 (Approximate), Expi res: 04/08/2024 Start: 04-08-2023 End: 04-08-2023 Patient encounter procedure 04/08/2023 10:00 AM EST Office Visit [facility] [address] [place] [phone] [place], METAL TILE LATHER - LABOR TRAINING MANAGER [address] [place], [place] [phone] [facility] Start: 04-01-2023 End: 03-18-2024 Basic metabolic 1998 panel - Serum or Plasma Basic metabolic panel Lab Routine CAD in [place] artery Essential hypertension, benign Expected: 04/01/2023 (Approximate), Expires: 03/18/2024 [employer] Work Phone: Comment on above: Expected: 04/01/2023 (Approximate), Expi res: 03/18/2024 Start: 03-29-2023 End: 03-29-2023 Patient encounter procedure 03/29/2023 3:45 PM EST Office Visit [facility] [address] [place] [phone] Zoie Gonzales MD [address] [place], [place] [phone] [facility] Start: 03-29-2023 End: 03-29-2023 Patient encounter procedure 03/29/2023 1:15 PM EST Office Visit [facility] [address] [place] [phone] Chris Boyce MD [address] [place], [place] [phone] [facility] Start: 03-18-2023 End: 03-18-2023 Patient encounter procedure 03/18/2023 11:00 AM EDT Office Visit [facility] [address] [place] [phone] [place] APRN - LABOR TRAINING MANAGER [address] [place] [address] [facility] Start: 03-04-2023 End: 03-04-2023 Patient encounter procedure 03/04/2023 11:35 AM EDT Office Visit [facility] [address] [place] [phone] Chris Boyce MD [address] [place], [place] [phone] [facility] Start: 03-01-2023 End: 03-01-2023 Admission to same day surgery center 03/01/2023 8:00 AM EDT - 03/01/2023 9:00 AM EDT Surgery [facility] [address] [place] [phone] Zoie Gonzales MD [address] [place] [phone] Coronary angiography [facility] Comment on above: Coronary angiography Start: 03-01-2023 Subsequent hospital visit by physician 03/01/2023 8:00 AM EDT Hospital Encounter [facility] [address] [place] [phone] Zoie Gonzales MD [address] [place] [phone] Atherosclerotic heart disease of [place] coronary artery with other forms of angina pectoris (HCC) [facility] Comment on above: Atherosclerotic heart disease of [place] coronary artery with other forms of angina pectoris (HCC) Start: 02-24-2023 End: 02-24-2023 Patient encounter procedure 02/24/2023 8:15 AM EDT Office Visit [facility] [address] [place] [phone] Chris Boyce MD [address] [place], [place] [phone] [facility] Start: 02-24-2023 End: 02-24-2023 Telemedicine consultation with patient 02/24/2023 8:15 AM EDT Telemedicine [facility] [address] [place] [phone] Chris Boyce MD [address] [place], [place] [phone] Arrived [facility] Comment on above: Arrived Start: 02-22-2023 End: 02-22-2023 Patient encounter procedure 02/22/2023 1:30 PM EDT Office Visit [facility] [address] [place] [address] Zoie Gonzales MD [address] [place], [place] [phone] [facility] Start: 02-02-2023 End: 02-03-2024 Comprehensive metabolic 1998 panel - Serum or Plasma Comprehensive metabolic panel Lab Routine CAD in [place] artery Expected: 02/02/2023 (Approximate), Expires: 02/03/2024 [facility] Comment on above: Expected: 02/02/2023 (Approximate), Expi res: 02/03/2024 Start: 02-02-2023 End: 02-03-2024 Lipid 1996 panel - Serum or Plasma Lipid panel Lab Routine CAD in [place] artery Other hyperlipidemia Expected: 02/02/2023 (Approximate), Expires: 02/03/2024 [facility] [employer] [facility] Work Phone: Comment on above: Expected: 02/02/2023 (Approximate), Expi res: 02/03/2024 Start: 02-02-2023 End: 02-02-2023 Patient encounter procedure 02/02/2023 8:30 AM EDT Office Visit [facility] [address] [place] [phone] [place], METAL TILE LATHER - LABOR TRAINING MANAGER [address] [address] [facility] Start: 01-26-2023 End: 01-27-2024 Basic metabolic 1997 panel - Serum or Plasma Basic metabolic panel Lab STAT WATTS (dyspnea on exertion) Expected: 01/26/2023 (Approximate), Expires: 01/27/2024 [facility] Comment on above: Expected: 01/26/2023 (Approximate), Expi res: 01/27/2024 Start: 01-26-2023 End: 01-27-2024 CBC W Auto Differential panel - Blood CBC auto differential Lab STAT WATTS (dyspnea on exertion) Expected: 01/26/2023 (Approximate), Expires: 01/27/2024 [facility] [employer] Work Phone: Comment on above: Expected: 01/26/2023 (Approximate), Expi res: 01/27/2024 Start: 01-22-2023 COVID-19 Vaccine ( season) COVID-19 Vaccine ( season) [facility] Start: 01-22-2023 Influenza vaccination [facility] Start: 01-04-2023 End: 01-04-2023 Patient encounter procedure [facility] Start: 12-24-2022 End: 12-24-2022 Patient encounter procedure 12/24/2022 2:30 PM EDT Office Visit [facility] [address] [place] [phone] [place], METAL TILE LATHER - LABOR TRAINING MANAGER [address] [address] [facility] Start: 12-15-2022 End: 12-09-2023 Basic metabolic 1998 panel - Serum or Plasma Basic metabolic panel Lab Routine Renal insufficiency Expected: 12/15/2022 (Approximate), Expires: 12/09/2023 [facility] [employer] Work Phone: Comment on above: Expected: 12/15/2022 (Approximate), Expi res: 12/09/2023 Start: 12-06-2022 Admission procedure [facility] Start: 12-05-2022 [facility] Start: 12-03-2022 End: 12-03-2022 Patient encounter procedure 12/03/2022 2:30 PM EDT [facility] Cardiology [address] [place] [phone] Zoie Gonzales MD [address] [place] [address] [facility] Cardiology Start: 11-20-2022 End: 11-20-2022 Patient encounter procedure 11/20/2022 8:30 PM EDT Office Visit [facility] [address] [place] [phone] Chris Boyce MD [address] [place] [address] [facility] Start: 11-18-2022 End: 11-18-2022 Patient encounter procedure 11/18/2022 11:00 AM EDT Appointment [facility] [address] Non-Invasive Cardiology [address] [place] [phone] [facility] [address] Non-Invasive Cardiology Start: 11-11-2022 End: 11-12-2023 Polysomnography Polysomnography Sleep Center Routine HIPOLITO (obstructive sleep apnea) Expected: 11/11/2022 (Approximate), Expires: 11/12/2023 [facility] [employer] [facility] Work Phone: Comment on above: Expected: 11/11/2022 (Approximate), Expi res: 11/12/2023 Start: 10-31-2022 Thyroid stimulating hormone measurement TSH Level [facility] Start: 10-29-2022 End: 10-29-2022 Patient encounter procedure 10/29/2022 Office Visit Pulmonology Tree Gonzales MD [address] [place] [address] [facility] Sleep [facility] Start: 10-12-2022 End: 10-12-2022 Patient encounter procedure 10/12/2022 Office Visit Cardiology Samra Gonzalez, [employer] - LABOR TRAINING MANAGER [address] [address] [facility] Start: 10-01-2022 End: 10-02-2023 Basic metabolic 1997 panel - Serum or Plasma Basic metabolic panel Lab Routine WATTS (dyspnea on exertion) Localized edema Expected: 10/01/2022 (Approximate), Expires: [facility]23 [facility] Comment on above: Expected: 10/01/2022 (Approximate), Expi res: 10/02/2023 Start: 09-28-2022 End: 09-29-2023 Basic metabolic 1997 panel - Serum or Plasma Basic metabolic panel Lab Routine Localized edema Expected: 09/28/2022 (Approximate), Expires: 09/29/2023 [facility]: Comment on above: Expected: 09/28/2022 (Approximate), Expi res: 09/29/2023 Start: 09-28-2022 End: 09-29-2023 CBC W Auto Differential panel - Blood CBC auto differential Lab Routine Localized edema Expected: 09/28/2022 (Approximate), Expires: 09/29/2023 [facility] [employer] Comment on above: Expected: 09/28/2022 (Approximate), Expi res: 09/29/2023 Start: 09-28-2022 End: 09-29-2023 Fibrin D-dimer FEU [Mass/volume] in Platelet poor plasma D-dimer, quantitative Lab Routine Localized edema WATTS (dyspnea on exertion) Expected: 09/28/2022 (Approximate), Expires: 09/29/2023 [facility] [employer] Comment on above: Expected: 09/28/2022 (Approximate), Expi res: 09/29/2023 Start: 09-28-2022 End: 09-29-2023 Hepatic function 2000 panel - Serum or Plasma Hepatic function panel Lab Routine PAF (paroxysmal atrial fibrillation) (CMS/HCC) (HCC) Localized edema Expected: 09/28/2022 (Approximate), Expires: 09/29/2023 [employer] Comment on above: Expected: 09/28/2022 (Approximate), Expi res: 09/29/2023 Start: 09-28-2022 End: 09-29-2023 Natriuretic peptide B [Mass/volume] in Blood NT PRO BNP Lab Routine Coronary artery disease involving [place] coronary artery of [place] heart without angina pectoris PAF (paroxysmal atrial fibrillation) (CMS/HCC) (HCC) Primary hypertension Chronic obstructive pulmonary disease, unspecified COPD type (HCC) Localized edema WATTS (dyspnea on exertion) Shortness of breath on exertion Expected: 09/28/2022 (Approximate), Expires: 09/29/2023 [employer] Comment on above: Expected: 09/28/2022 (Approximate), Expi res: 09/29/2023 Start: 09-28-2022 End: 09-28-2024 US Heart Transthoracic Transthoracic echocardiogram (TTE) complete with contrast, bubble, strain, and 3D PRN CV Echocardiography Routine Localized edema Expected: 09/28/2022 (Approximate), Expires: 09/28/2024 [facility] Comment on above: Expected: 09/28/2022 (Approximate), Expi res: 09/28/2024 Start: 08-22-2022 Blood chemistry [facility] Start: 08-21-2022 Patient discharge [facility] Start: 08-20-2022 Incentive spirometry [facility] Start: 08-20-2022 [facility] Start: 08-20-2022 Continuous pulse oximetry [facility] Start: 08-20-2022 Anes arthrs humeral h/n strnclav & shoulder nos ANESTH SURGERY OF SHOULDER [facility] Start: 08-20-2022 Arthroscopy shoulder distal claviculectomy YOLANDE ARTHRS SRG DSTL CLAVICLC [facility] Start: 08-20-2022 Arthroscopy shoulder rotator cuff repair YOLANDE ARTHRS SRG [id number] CUF RPR [facility] Start: 08-20-2022 Arthroscopy shoulder w/coracoacrm ligmnt release YOLANDE ARTHRS SRG DECOMPRESSION [facility] Start: 08-20-2022 Following clinical pathway protocol [facility] Start: 08-20-2022 Application of intermittent pneumatic compression device [facility] Start: 08-20-2022 Consultation [facility] Start: 08-20-2022 Admission procedure [facility] Start: 08-20-2022 Catheterization of vein [facility] Start: 08-20-2022 Deep breathing and coughing exercises [facility] Start: 08-20-2022 Following clinical pathway protocol [facility] Start: 08-20-2022 Introduction of urinary catheter [facility] Start: 08-20-2022 Patient education [facility] Start: 08-20-2022 Taking patient vital signs [facility] Start: 08-20-2022 Vital signs measurements [facility] Start: 08-20-2022 [facility] Start: 08-20-2022 Application of ice collar, cap or bag [facility] Start: 08-20-2022 Assessment of risk of venous thromboembolism [facility] Start: 08-20-2022 Provision of activity privileges [facility] Start: 08-20-2022 Verification routine [facility] Start: 08-20-2022 Medication education [facility] Start: 08-01-2022 Lipid panel Lip[facility] Start: 03-18-2022 Creatinine measurement Creatinine monitoring [facility] Start: 03-18-2022 Potassium monitoring Potassium monitoring [facility] Start: 01-27-2022 End: 01-27-2022 Patient encounter procedure 01/27/2022 Office Visit Cardiology Zoie Gonzales MD [address] [place] [address] [facility] Start: 01-22-2022 Influenza vaccination [facility] Start: 01-12-2022 Colonoscopy w/biopsy single/multiple COLONOSCOPY AND BIOPSY [facility] Work Phone: Start: 01-12-2022 Colsc flx w/rmvl of tumor polyp lesion snare tq COLONOSCOPY W/LESION REMOVAL [facility] Work Phone: Start: 01-12-2022 Egd insert guide wire dilator passage esophagus EGD GUIDE WIRE INSERTION [facility] Work Phone: Start: 01-12-2022 Egd removal tumor polyp/other lesion snare tech EGD REMOVE LESION SNARE [facility] Work Phone: Start: 01-12-2022 Egd transoral biopsy single/multiple EGD BIOPSY SINGLE/MULTIPLE [facility] Work Phone: Start: 01-12-2022 Patient discharge [facility] Work Phone: Start: 01-01-2022 End: 01-01-2022 Patient encounter procedure 01/01/2022 Office Visit Pulmonology Tree Gonzales MD [address] [place] [address] [facility] Start: 12-30-2021 End: 12-30-2021 Patient encounter procedure 12/30/2021 Appointment Pulmonary Function Testing Tree Gonzales MD [address] [place] [address] [facility] Pulmonary Function Lab Start: 10-02-2021 End: 10-02-2021 Patient encounter procedure 10/02/2021 Office Visit Pulmonology Tree Gonzales MD 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 [address] [place] [address] [facility] Start: 07-25-2021 End: 07-25-2021 Patient encounter procedure 07/25/2021 Office Visit Weight Management Reba Reed MD [address] [place] [address] [facility] Start: 07-17-2021 Thyroid stimulating hormone measurement TSH testing [facility] Start: 06-27-2021 End: 06-27-2021 Patient encounter procedure 06/27/2021 Office Visit Weight Management Reba Reed MD [address] [place] [address] [facility] Start: 04-13-2021 DTaP/Tdap/Td vaccine (2 - Td or Tdap) DTaP/Tdap/Td vaccine (2 - Td or Tdap) [facility] Start: 04-13-2021 DTaP/Tdap/Td vaccine (2 - Td) DTaP/Tdap/Td vaccine (2 - Td) [place], [place] Start: 04-13-2021 DTaP/Tdap/Td Vaccines (2 - Td or Tdap) DTaP/Tdap/Td Vaccines (2 - Td or Tdap) [facility] Start: 03-25-2021 End: 03-17-2022 Basic metabolic 2000 panel - Serum or Plasma Basic Metabolic Panel Lab Routine CAD in e[place]gik artery Expected: 03/25/2021, Expires: 03/17/2022 [facility] Work Phone: Comment on above: Expected: 03/25/2021, Expires: Start: 03-24-2021 End: 03-24-2021 Patient encounter procedure 03/24/2021 Office Visit Cardiology [place], [employer]ATHER - LABOR TRAINING MANAGER [address] [place] [address] [phone] [facility] Start: 03-20-2021 End: 03-20-2021 ambulatory 03/20/2021 Virtual Visit Pulmonology Quan Green, [employer]ATHER - LABOR TRAINING MANAGER [address] [place] [address] [phone] [facility] Start: 03-17-2021 Annual Wellness Visit (AWV) Annual Wellness Visit (AWV) [facility] Start: 03-17-2021 End: 03-17-2021 Patient encounter procedure 03/17/2021 Appointment IP Unit Zoie Gonzales MD [address] [place] [address] [phone] [facility] Start: 01-22-2021 Influenza vaccination [facility] Start: 11-07-2020 End: 11-07-2020 Patient encounter procedure 11/07/2020 Office Visit Pulmonology Tree Gonzales MD [address] [place] [address] [phone] [facility] Start: 10-27-2020 Pneumococcal 65+ years Vaccine (1 of 1 - PPSV23) Pneumococcal 65+ years Vaccine (1 of 1 - PPSV23) [facility] Start: 10-05-2020 Creatinine measurement Creatinine monitoring [facility] Work Phone: Start: 10-05-2020 Potassium monitoring Potassium monitoring [facility] Work Phone: Start: 09-08-2020 Creatinine measurement Creatinine monitoring [facility], [place] Start: 09-08-2020 Creatinine monitoring Creatinine monitoring [place], [place] Start: 09-08-2020 Potassium monitoring Potassium monitoring [place], [place] Start: 09-05-2020 TSH Qn TSH testing [place], [place] Start: 09-05-2020 TSH testing TSH testing [place], [place] Start: 06-06-2020 Lipid panel Lipid screen [facility] Start: 06-06-2020 Lipid screen Lipid screen [place], [place] Start: 01-23-2020 Influenza vaccination Flu vaccine (Season Ended) [place], [place] Start: 09-21-2019 End: 09-21-2019 Virtual Visit 09/21/2019 Virtual Visit Cardiology [place], [employer] LATHER - LABOR TRAINING MANAGER [address] [facility] [address] [place] [address] [phone] [facility] Start: 09-14-2019 End: 09-14-2019 Virtual Visit [facility] Start: 2015 RSV Immunization aged 60 or older (1 - 1-dose 60+ series) RSV Immunization aged 60 or older (1 - 1-dose 60+ series) [facility] Start: 2015 RSV Immunization for Adults (1 - Risk 60-74 years 1-dose series) RSV Immunization for Adults (1 - Risk 60-74 years 1-dose series) [facility] Start: 10-27-2005 Colon cancer screen colonoscopy Colon cancer screen colonoscopy [place], [place] Start: 10-27-2005 Screening for malignant neoplasm of colon Colon cancer screen colonoscopy [place], [place] Start: 10-27-2005 Shingles Vaccine (1 of 2) Shingles Vaccine (1 of 2) [facility] Start: 10-27-2005 Zoster Vaccines (1 of 2) Zoster Vaccines (1 of 2) [facility] Start: 10-27-2000 Screening for malignant neoplasm of colon [facility] Start: 1995 Diabetes screen Diabetes screen [place], [place] Start: 1995 Prostate specific antigen measurement Prostate Specific Antigen (PSA) Screening or Monitoring [facility] Start: 10-27-1990 Diabetes screen Diabetes screen [facility] Start: 10-27-1974 Pneumococcal Vaccine: 50+ Years (1 of 2 - PCV) Pneumococcal Vaccine: 50+ Years (1 of 2 - PCV) [facility] Start: 10-27-1973 Diabetes mellitus screening Diabetes Screening [facility] Start: 10-27-1973 Hepatitis C screening [facility] Start: 10-27-1970 HIV screen HIV screen [place] Start: 10-27-1970 HIV screening HIV screen [facility] Start: 1967 COVID-19 Vaccine (1) COVID-19 Vaccine (1) [facility] Start: 1967 Depression Screen Depression Screen [facility] Start: 1967 Depression Screening Depression Screening [facility] Start: 10-27-1961 Pneumococcal 0-64 years Vaccine (1 of 1 - PPSV23) Pneumococcal 0-64 years Vaccine (1 of 1 - PPSV23) [place] Start: 10-27-1961 Pneumococcal 0-64 years Vaccine (1 of 2 - PPSV23) Pneumococcal 0-64 years Vaccine (1 of 2 - PPSV23) [facility] Work Phone: Start: 10-27-1961 Pneumococcal 65+ years Vaccine (1 - PCV) Pneumococcal 65+ years Vaccine (1 - PCV) [facility] Start: 10-27-1961 Pneumococcal Vaccine: 65+ Years (1 - PCV) Pneumococcal Vaccine: 65+ Years (1 - PCV) [facility] Start: 10-27-1961 Pneumococcal Vaccine: 65+ Years (1 of 2 - PCV) Pneumococcal Vaccine: 65+ Years (1 of 2 - PCV) [facility] Start: 10-27-1960 COVID-19 Vaccine (1) COVID-19 Vaccine (1) [facility] Start: 04-28-1956 COVID-19 Vaccine (#1) COVID-19 Vaccine (#1) [facility] Start: 1955 Annual Wellness Visit (AWV) Annual Wellness Visit (AWV) [facility] Start: 1955 Echocardiography Echocardiogram [facility] Start: 1955 Hepatitis B Vaccines (1 of 3 - 3-dose series) Hepatitis B Vaccines (1 of 3 - 3-dose series) [facility] Start: 1955 Hepatitis C screen Hepatitis C screen [place], [place] Start: 1955 Hepatitis C screening Hepatitis C screen [facility] Start: 1955 Medicare Annual Wellness (AWV) Medicare Annual Wellness (AWV) [facility] Start: 1955 Screening for malignant neoplasm of colon [facility] Anion gap measurement [facility] Bilirubin.direct [Mass/volume] in Serum or Plasma [facility] Work Phone: BIPAP BIPAP Respirator y Care Routine Every 4hr until discontinued starting 09/07/2019 [facility], [place] Comment on above: Every 4hr until discontinued starting BUN/Creatinine ratio [facility] Calcium [Mass/volume ] in Serum or Plasma [facility] Carbon dioxide, tota l [Moles/volume] in Serum or Plasma [facility] Cardiac catheterizat ion study Cardiac procedure CV Cardiac Cath Routine Unstable angina (CMS/HCC) (HCC) 09/14/2024 2:02 PM EDT [facility] Work Phone: End: 08-24-2024 Cardiac holter monitor (3-7 days) [facility] [employer] [facility] Work Phone: Comment on above: Once for 1 Occurrences starting 08/25/19 until 08/24/2024 End: 12-01-2021 Catheterization and angiography procedure details panel [facility] Procedure Cardiac Cath Routine One Time for 1 Occurrences starting 12/01/2021 until 12/01/2021 [facility] Work Phone: Comment on above: One Time for 1 Occurrences starting 11/21 until 12/01/2021 End: 09-16-2019 CBC CBC Lab Routine Tomorrow AM for 1 Occurrences starting 09/16/2019 until 09/16/2019 [facility], [place] Comment on above: Tomorrow AM for 1 Occurrences starting 0 09/16/2019 until 09/16/2019 CBC panel - Blood by Automated count CBC Lab Routine Daily until discontinued starting 03/18/2021, 1 completed [employer] Work Phone: Comment on above: Daily until discontinued starting 2020, 1 completed CBC W Auto Different ial panel - Blood [facility] Work Phone: Celiac disease screen [facility] Work Phone: Chloride [Moles/volu me] in Serum or Plasma [facility] Clostridioides diffi cile DNA [Presence] in Unspecified specimen by HARIKA with probe detection [facility] Work Phone: Comprehensive Metabo lic Panel w/ Reflex to MG Comprehensive Metabolic Panel w/ Reflex to MG Lab Routine Daily until discontinued starting 03/18/2021, 1 completed [employer] Work Phone: Comment on above: Daily until discontinued starting 2020, 1 completed Continuous pulse oximetry Pulse oximetry, continuous Respiratory Care Routine Every 4hr until discontinued starting 03/17/2021 [employer] Work Phone: Comment on above: Every 4hr until discontinued starting Creatinine [Moles/vo lume] in Serum or Plasma [facility] End: 10-22-2020 CT Chest WO Contrast CT Chest WO Contrast Imaging Routine Pneumonia due to COVID-19 virus ILD (interstitial lung disease) (HCC) Pneumoconiosis (HCC) 1 Occurrences starting 10/22/2020 until 10/22/2020 [employer] Work Phone: Comment on above: 1 Occurrences starting 10/22/2020 until 10/22/2020 CT Chest WO Contrast CT Chest WO Contrast Imaging Routine Pneumonia due to COVID-19 virus ILD (interstitial lung disease) (HCC) Pneumoconiosis (HCC) 10/22/2020 8:43 AM EDT [facility] Work Phone: ECG 12 lead - CLINIC PERFORMED ECG 12 lead - CLINIC PERFORMED CV ECG Routine Primary hypertension 02/02/2023 8:37 AM EDT [employer] Work Phone: ECG 12 lead - CLINIC PERFORMED ECG 12 lead - CLINIC PERFORMED CV ECG Routine CAD in [place] artery 07/06/2022 2:29 PM EST [employer] Work Phone: ECG 12 lead - CLINIC PERFORMED ECG 12 lead - CLINIC PERFORMED CV ECG Routine CAD in [place] artery 07/06/2024 2:08 PM [facility] [employer] Work Phone: [facility] Comment on above: As Needed until discontinued starting Daily until disconti nued starting 03/18/2021, 1 completed End: 09-16-2019 EKG 12 lead EKG 12 lead ECG Routine Tomorrow AM for 1 Occurrences starting 09/16/2019 until 09/16/2019 [facility] Comment on above: Tomorrow AM for 1 Occurrences starting 0 09/16/2019 until 09/16/2019 Ferritin [Mass/volum e] in Serum or Plasma [facility] Work Phone: Full PFT Study With Bronchodilator Full PFT Study With Bronchodilator PFT Routine Pneumonia due to COVID-19 virus Interstitial lung disease (HCC) Pneumoconiosis (HCC) 10/22/2020 8:53 AM [employer] Work Phone: Gastrointestinal pathogens panel - Stool by HARIKA with probe detection [facility] Work Phone: Glucose [Mass/volume ] in Serum or Plasma [facility] Initiate Oxygen Ther apy Protocol [facility] Comment on above: Daily until discontinued starting 2019 Daily until disconti nued starting 09/08/2019 Daily until disconti nued starting 09/15/2019 Iron and Iron bindin g capacity panel - Serum or Plasma [facility] Work Phone: Measurement of renal function [facility] End: 09-07-2019 Nasal Cannula Oxygen Nasal Cannula Oxygen Respiratory Care Routine As Needed until discontinued starting 09/07/2019 [facility] Comment on above: As Needed until discontinued starting Ova and parasites identified in Unspecified specimen by Light microscopy [facility] Work Phone: Oxygen therapy [Mini mum Data Set] Initiate Oxygen Therapy Protocol Respiratory Care Routine Daily until discontinued starting 03/17/2021 [employer] Work Phone: Comment on above: Daily until discontinued starting 2020 Oxygen therapy [Mini mum Data Set] Initiate Oxygen Therapy Protocol Respiratory Care Routine As Needed until discontinued starting 12/01/2021 [employer] Work Phone: Comment on above: As Needed until discontinued starting Oxygen therapy [Mini mum Data Set] Initiate Oxygen Therapy Protocol Respiratory Care Routine Daily until discontinued starting 12/01/2021 [employer] Work Phone: Comment on above: Daily until discontinued starting 2021 Patient Education [facility] Work Phone: Patient referral [facility] Work Phone: Potassium [Moles/vol ume] in Serum or Plasma [facility] Pulse oximetry, continuous Pulse oximetry, continuous Respiratory Care Routine Every 4hr until discontinued starting 09/07/2019 [facility] Comment on above: Every 4hr until discontinued starting Radionuclide gastric emptying study [facility] Sodium [Moles/volume ] in Serum or Plasma [facility] End: 09-15-2019 Troponin I.cardiac [Mass/Vol] Troponin Lab Timed Now Then Every 3hr for 2 Occurrences starting 09/15/2019 until 09/15/2019, 1 completed [facility] Comment on above: Now Then Every 3hr for 2 Occurrences sta rting 09/15/2019 until 09/15/2019, 1 completed Urea nitrogen [Mass/volume] in Serum or Plasma [facility] US Thyroid gland [facility] Payers Date Payer Category Payer Self-pay [id number] 2021 Medicare supplementa l policy (as second payer) [facility] MEDICARE SUPPLEMENT [id number] 2021 Unknown [employer] [place] MEDICARE SUPPLEMENT [id number] 2021-Present [address] [place] [address] Supplement [id number] 2020 Medicare [id number] 2020 Medicare [id number] 2019 Unknown BCBS BCBS - [place] P PO xxxxxxxxxxxx 2019-Present [address] [place] [address] xxxxxxxxxxxx [id number] 2019 Unknown [id number]. [id number] 2015 Unknown [id number]. [id number] 2014 Unknown [facility] [id number] Unknown [id number] 2.16840.1.152242.3.579. 2.462 Unknown [id number] 2.16840.1.908624.3.579. 2.462 Unknown [id number] 2.16.840.1.091432.3.579. 2.462 Unknown [id number] 2.16.840.1.774137.3.579. 2.462 Unknown [id number] 2.16.840.1.496070.3.579. 2.462 Unknown [id number] 2.16.840.1.054079.3.579. 2.462 Unknown [id number] 2.16.840.1.272712.3.579. 2.462 Unknown [id number] 2.16.840.1.656817.3.579. 2.462 Unknown [id number] 2.16.840.1.767165.3.579. 2.462 Unknown [id number] 2.16.840.1.418625.3.579. 2.462 Unknown [id number] 2.16.840.1.106426.3.579. 2.462 Unknown [id number] 2.16.840.1.596038.3.579. 2.462 Unknown [id number] 2.16.840.1.035364.3.579. 2.462 Unknown [id number] 2.16.840.1.246037.3.579. 2.462 Unknown [id number] 2.16.840.1.338194.3.579. 2.462 Unknown [id number] 2.16.840.1.556853.3.579. 2.462 Unknown [id number] 2.16840.1.698227.3.579. 2.462 Social History Date Type Detail Facility Start: 09-05-2019 End: 04-23-2024 Tobacco smoking status NHIS Never smoker [place], [place] Start: 09-05-2019 End: 05-05-2021 Alcohol intake Current drinker of alcohol (finding) [place] Start: 02-27-2016 Alcohol Comment rare [place], [place] Start: 1955 Sex Assigned At Not on file [place] Exposure to SARS-CoV -2 (event) Unable to assess [place], [place] Start: 05-26-2016 End: 09-19-2020 Tobacco use and exposure Never used [facility] Start: 11-21-2021 End: 02-02-2023 Exposure to SARS-CoV-2 (event) Not sure [facility] Start: 09-09-2021 End: 07-05-2023 Tobacco smoking status NHIS Unknown if ever smoked [facility] Start: 09-23-2020 None [facility] Start: 04-01-2020 Non-smoker [facility] Start: 1955 Sex Assigned At Male W [facility] Start: 10-30-2021 End: 09-28-2024 Alcohol intake Ex-drinker (finding) [facility] Work Phone: Start: 11-11-2022 End: 09-28-2024 History of Social function [facility] Start: 11-11-2022 End: 09-28-2024 Tobacco use panel [facility] Within the last year , have you been afraid of your partner or ex-partner? No [facility] Start: 12-22-2021 End: 09-05-2024 Sex Male (finding) [facility] Medical Equipment Procedure Code Equipment Code Equipment Origin al Text Equipment Identifier Dates Total cholecystectomy with exploration of common bile duct CLIP,HEMLINDA CHRISTIANSEN FDA Start: 10-30-2019 Total cholecystectomy with exploration of common bile duct CLIP,HEMLINDA CHRISTIANSEN FDA Start: 10-30-2019 Total cholecystectomy with exploration of common bile duct CLIP,HEMOLOCK MED ЕЛЕНА FDA Start: 10-30-2019 Total cholecystectomy with exploration of common bile duct CLIP,HEMOLOCK MED ЕЛЕНА FDA Start: 10-30-2019 Total cholecystectomy with exploration of common bile duct DRESSING,FIBRILLAR 1X1960 FDA Start: 10-30-2019 Total cholecystectomy with exploration of common bile duct CLIP,HEMLINDA CHRISTIANSEN FDA Start: 10-30-2019 Total cholecystectomy with exploration of common bile duct CLIP,HEMLINDA CHRISTIANSEN FDA Start: 10-30-2019 Total cholecystectomy with exploration of common bile duct CLIP,HEMOLOCK MED WECK FDA Start: 10-30-2019 Total cholecystectomy with exploration of common bile duct CLIP,HEMOLOCK MED WECK FDA Start: 10-30-2019 Total cholecystectomy with exploration of common bile duct DRESSING,FIBRILLAR 1X2 1960 FDA Start: 10-30-2019 Total cholecystectomy with exploration of common bile duct CLIP,HEMOLOCK REBECCA WECK FDA Start: 10-30-2019 Total cholecystectomy with exploration of common bile duct CLIP,HEMOLOAYE FERNANDEZ WECK FDA Start: 10-30-2019 Total cholecystectomy with exploration of common bile duct CLIP,HEMOLOCK MED WECK FDA Start: 10-30-2019 Total cholecystectomy with exploration of common bile duct CLIP,HEMOLOCK MED WECK FDA Start: 10-30-2019 Total cholecystectomy with exploration of common bile duct DRESSING,FIBRILLAR 1X2 1960 FDA Start: 10-30-2019 Total cholecystectomy with exploration of common bile duct CLIP,HEMOLOAYE CHRISTIANSEN FDA Start: 10-30-2019 Total cholecystectomy with exploration of common bile duct CLIP,HEMOLOAYE CHRISTIANSEN FDA Start: 10-30-2019 Total cholecystectomy with exploration of common bile duct CLIP,HEMOLOAYE FERNANDEZ WEAYE FDA Start: 10-30-2019 Total cholecystectomy with exploration of common bile duct CLIP,HEMOLOCK MED WECK FDA Start: 10-30-2019 Total cholecystectomy with exploration of common bile duct DRESSING,FIBRILLAR 1X2 1960 FDA Start: 10-30-2019 Total cholecystectomy with exploration of common bile duct CLIP,HEMOLOAYE FERNANDEZ WEAYE FDA Start: 10-30-2019 Total cholecystectomy with exploration of common bile duct CLIP,HEMOLOAYE FERNANDEZ WEAYE FDA Start: 10-30-2019 Total cholecystectomy with exploration of common bile duct CLIP,HEMOLOAYE FERNANDEZ WECK FDA Start: 10-30-2019 Total cholecystectomy with exploration of common bile duct CLIP,HEMOLOCK MED WECK FDA Start: 10-30-2019 Total cholecystectomy with exploration of common bile duct DRESSING,FIBRILLAR 1X2 1960 FDA Start: 10-30-2019 Total cholecystectomy with exploration of common bile duct CLIP,HEMOLOAYE FERNANDEZ WECK FDA Start: 10-30-2019 Total cholecystectomy with exploration of common bile duct CLIP,HEMOLOAYE FERNANDEZ WECK FDA Start: 10-30-2019 Total cholecystectomy with exploration of common bile duct CLIP,HEMOLOAYE MCDONNELLCK FDA Start: 10-30-2019 Total cholecystectomy with exploration of common bile duct CLIP,HEMOLOCK REBECCA WECK FDA Start: 10-30-2019 Total cholecystectomy with exploration of common bile duct DRESSING,FIBRILLAR 1X2 1960 FDA Start: 10-30-2019 Total cholecystectomy with exploration of common bile duct CLIP,HEMOLOAYE FERNANDEZ WECK FDA Start: 10-30-2019 Total cholecystectomy with exploration of common bile duct CLIP,HEMOLOAYE FERNANDEZ WEAYE FDA Start: 10-30-2019 Total cholecystectomy with exploration of common bile duct CLIP,HEMOLOAYE CHRISTIANSEN FDA Start: 10-30-2019 Total cholecystectomy with exploration of common bile duct CLIP,HEMOLOAYE FERNANDEZ WEAYE FDA Start: 10-30-2019 Total cholecystectomy with exploration of common bile duct DRESSING,FIBRILLAR 1X2 1960 FDA Start: 10-30-2019 Total cholecystectomy with exploration of common bile duct CLIP,HEMOLOAYE CHRISTIANSEN FDA Start: 10-30-2019 Total cholecystectomy with exploration of common bile duct CLIP,HEMOLOAYE CHRISTIANSEN FDA Start: 10-30-2019 Total cholecystectomy with exploration of common bile duct CLIP,HEMLINDA CHRISTIANSEN FDA Start: 10-30-2019 Total cholecystectomy with exploration of common bile duct CLIP,HEMOLOAYE CHRISTIANSEN FDA Start: 10-30-2019 Total cholecystectomy with exploration of common bile duct DRESSING,FIBRILLAR 1X2 1960 FDA Start: 10-30-2019 Total cholecystectomy with exploration of common bile duct CLIP,HEMOLOAYE CHRISTIANSEN FDA Start: 10-30-2019 Total cholecystectomy with exploration of common bile duct CLIP,HEMOLOAYE CHRISTIANSEN FDA Start: 10-30-2019 Total cholecystectomy with exploration of common bile duct CLIP,HEMLINDA CHRISTIANSEN FDA Start: 10-30-2019 Total cholecystectomy with exploration of common bile duct CLIP,HEMOLOAYE FERNANDEZ WEAYE FDA Start: 10-30-2019 Total cholecystectomy with exploration of common bile duct DRESSING,FIBRILLAR 1X2 1960 FDA Start: 10-30-2019 Total cholecystectomy with exploration of common bile duct CLIP,HEMOLOAYE FERNANDEZ WEAYE FDA Start: 10-30-2019 Total cholecystectomy with exploration of common bile duct CLIP,HEMOLOAYE FERNANDEZ WEAYE FDA Start: 10-30-2019 Total cholecystectomy with exploration of common bile duct CLIP,HEMOLOAYE FERNANDEZ WEAYE FDA Start: 10-30-2019 Total cholecystectomy with exploration of common bile duct CLIP,HEMOLOAYE CHRISTIANSEN FDA Start: 10-30-2019 Total cholecystectomy with exploration of common bile duct DRESSING,FIBRILLAR 1X2 1960 FDA Start: 10-30-2019 Total cholecystectomy with exploration of common bile duct CLIP,HEMOLOCK MED WECK FDA Start: 10-30-2019 Total cholecystectomy with exploration of common bile duct CLIP,HEMOLOCK MED WECK FDA Start: 10-30-2019 Total cholecystectomy with exploration of common bile duct CLIP,HEMOLOCK MED WECK FDA Start: 10-30-2019 Total cholecystectomy with exploration of common bile duct CLIP,HEMOLOCK MED WECK FDA Start: 10-30-2019 Total cholecystectomy with exploration of common bile duct DRESSING,FIBRILLAR 1X2 1960 FDA Start: 10-30-2019 Total cholecystectomy with exploration of common bile duct CLIP,HEMOLOCK MED WECK FDA Start: 10-30-2019 Total cholecystectomy with exploration of common bile duct CLIP,HEMOLOCK MED WECK FDA Start: 10-30-2019 Total cholecystectomy with exploration of common bile duct CLIP,HEMOLOCK MED WECK FDA Start: 10-30-2019 Total cholecystectomy with exploration of common bile duct CLIP,HEMOLOCK MED WECK FDA Start: 10-30-2019 Total cholecystectomy with exploration of common bile duct DRESSING,FIBRILLAR 1X2 1960 FDA Start: 10-30-2019 Total cholecystectomy with exploration of common bile duct CLIP,HEMOLOCK MED WECK FDA Start: 10-30-2019 Total cholecystectomy with exploration of common bile duct CLIP,HEMOLOCK MED WECK FDA Start: 10-30-2019 Total cholecystectomy with exploration of common bile duct CLIP,HEMOLOCK MED WECK FDA Start: 10-30-2019 Total cholecystectomy with exploration of common bile duct CLIP,HEMOLOCK MED WECK FDA Start: 10-30-2019 Total cholecystectomy with exploration of common bile duct DRESSING,FIBRILLAR 1X2 1960 FDA Start: 10-30-2019 Total cholecystectomy with exploration of common bile duct CLIP,HEMOLOCK MED WECK FDA Start: 10-30-2019 Total cholecystectomy with exploration of common bile duct CLIP,HEMOLOCK MED WECK FDA Start: 10-30-2019 Total cholecystectomy with exploration of common bile duct CLIP,HEMOLOCK MED WECK FDA Start: 10-30-2019 Total cholecystectomy with exploration of common bile duct CLIP,HEMOLOCK MED WECK FDA Start: 10-30-2019 Total cholecystectomy with exploration of common bile duct DRESSING,FIBRILLAR 1X2 1960 FDA Start: 10-30-2019 Total cholecystectomy with exploration of common bile duct CLIP,HEMOLOCK MED WECK FDA Start: 10-30-2019 Total cholecystectomy with exploration of common bile duct CLIP,HEMOLOCK MED WECK FDA Start: 10-30-2019 Total cholecystectomy with exploration of common bile duct CLIP,HEMOLOCK MED WECK FDA Start: 10-30-2019 Total cholecystectomy with exploration of common bile duct CLIP,HEMOLOCK MED WECK FDA Start: 10-30-2019 Total cholecystectomy with exploration of common bile duct DRESSING,FIBRILLAR 1X2 1960 FDA Start: 10-30-2019 Total cholecystectomy with exploration of common bile duct CLIP,HEMOLOCK REBECCA WECK FDA Start: 10-30-2019 Total cholecystectomy with exploration of common bile duct CLIP,HEMOLOCK MED WECK FDA Start: 10-30-2019 Total cholecystectomy with exploration of common bile duct CLIP,HEMOLOCK REBECCA WECK FDA Start: 10-30-2019 Total cholecystectomy with exploration of common bile duct CLIP,HEMOLOCK MED WECK FDA Start: 10-30-2019 Total cholecystectomy with exploration of common bile duct DRESSING,FIBRILLAR 1X2 1960 FDA Start: 10-30-2019 Total cholecystectomy with exploration of common bile duct CLIP,HEMOLOCK REBECCA WECK FDA Start: 10-30-2019 Total cholecystectomy with exploration of common bile duct CLIP,HEMOLOCK MED WECK FDA Start: 10-30-2019 Total cholecystectomy with exploration of common bile duct CLIP,HEMOLOAYE FERNANDEZ WECK FDA Start: 10-30-2019 Total cholecystectomy with exploration of common bile duct CLIP,HEMOLOCK REBECCA WECK FDA Start: 10-30-2019 Total cholecystectomy with exploration of common bile duct DRESSING,FIBRILLAR 1X2 1 FDA Start: 10-30-2019 Total cholecystectomy with exploration of common bile duct CLIP,HEMOLOCK MED WECK FDA Start: 10-30-2019 Total cholecystectomy with exploration of common bile duct CLIP,HEMOLOCK MED WECK FDA Start: 10-30-2019 Total cholecystectomy with exploration of common bile duct CLIP,HEMOLOCK MED WECK FDA Start: 10-30-2019 Total cholecystectomy with exploration of common bile duct CLIP,HEMOLOCK MED WECK FDA Start: 10-30-2019 Total cholecystectomy with exploration of common bile duct DRESSING,FIBRILLAR 1X2 1 FDA Start: 10-30-2019 Total cholecystectomy with exploration of common bile duct CLIP,HEMOLOAYE FERNANDEZ WECK FDA Start: 10-30-2019 Total cholecystectomy with exploration of common bile duct CLIP,HEMOLOCK REBECCA WECK FDA Start: 10-30-2019 Total cholecystectomy with exploration of common bile duct CLIP,HEMOLOCK MED WECK FDA Start: 10-30-2019 Total cholecystectomy with exploration of common bile duct CLIP,HEMOLOCK MED WECK FDA Start: 10-30-2019 Total cholecystectomy with exploration of common bile duct DRESSING,FIBRILLAR 1X2 1960 FDA Start: 10-30-2019 Total cholecystectomy with exploration of common bile duct CLIP,HEMOLOAEY FERNANDEZ WECK FDA Start: 10-30-2019 Total cholecystectomy with exploration of common bile duct CLIP,HEMOLOAYE FERNANDEZ WECK FDA Start: 10-30-2019 Total cholecystectomy with exploration of common bile duct CLIP,HEMOLOCK MED WECK FDA Start: 10-30-2019 Total cholecystectomy with exploration of common bile duct CLIP,HEMOLOAYE FERNANDEZ WECK FDA Start: 10-30-2019 Total cholecystectomy with exploration of common bile duct DRESSING,FIBRILLAR 1X2 1960 FDA Start: 10-30-2019 Total cholecystectomy with exploration of common bile duct CLIP,HEMLINDA CHRISTIANSEN FDA Start: 10-30-2019 Total cholecystectomy with exploration of common bile duct CLIP,HEMOLOAYE CHRISTIANSEN FDA Start: 10-30-2019 Total cholecystectomy with exploration of common bile duct CLIP,HEMOLOAYE FERNANDEZ WEAYE FDA Start: 10-30-2019 Total cholecystectomy with exploration of common bile duct CLIP,HEMOLOAYE FERNANDEZ WEAYE FDA Start: 10-30-2019 Total cholecystectomy with exploration of common bile duct DRESSING,FIBRILLAR 1X2 1960 FDA Start: 10-30-2019 Total cholecystectomy with exploration of common bile duct CLIP,HEMLINDA FERNANDEZ WEAYE FDA Start: 10-30-2019 Total cholecystectomy with exploration of common bile duct CLIP,HEMOLOAYE FERNANDEZ WECK FDA Start: 10-30-2019 Total cholecystectomy with exploration of common bile duct CLIP,HEMOLOCK MED WECK FDA Start: 10-30-2019 Total cholecystectomy with exploration of common bile duct CLIP,HEMOLOCK MED WECK FDA Start: 10-30-2019 Total cholecystectomy with exploration of common bile duct DRESSING,FIBRILLAR 1X2 1960 FDA Start: 10-30-2019 Total cholecystectomy with exploration of common bile duct CLIP,HEMOLOAYE FERNANDEZ WEAYE FDA Start: 10-30-2019 Total cholecystectomy with exploration of common bile duct CLIP,HEMOLOAYE FERNANDEZ WEAYE FDA Start: 10-30-2019 Total cholecystectomy with exploration of common bile duct CLIP,HEMOLOAYE FERNANDEZ WEAYE FDA Start: 10-30-2019 Total cholecystectomy with exploration of common bile duct CLIP,HEMOLOCK REBECCA WECK FDA Start: 10-30-2019 Total cholecystectomy with exploration of common bile duct DRESSING,FIBRILLAR 1X2 1960 FDA Start: 10-30-2019 Total cholecystectomy with exploration of common bile duct CLIP,MARY CHRISTIANSEN FDA Start: 10-30-2019 Total cholecystectomy with exploration of common bile duct CLIP,HEMLINDA CHRISTIANSEN FDA Start: 10-30-2019 Total cholecystectomy with exploration of common bile duct CLIP,HEMLINDA CHRISTIANSEN FDA Start: 10-30-2019 Total cholecystectomy with exploration of common bile duct CLIP,HEMOLOAYE FERNANDEZ WECK FDA Start: 10-30-2019 Total cholecystectomy with exploration of common bile duct DRESSING,FIBRILLAR 1X2 1960 FDA Start: 10-30-2019 Total cholecystectomy with exploration of common bile duct CLIP,MARY CHRISTIANSEN FDA Start: 10-30-2019 Total cholecystectomy with exploration of common bile duct CLIP,MARY CHRISTIANSEN FDA Start: 10-30-2019 Total cholecystectomy with exploration of common bile duct CLIP,MARY CHRISTIANSEN FDA Start: 10-30-2019 Total cholecystectomy with exploration of common bile duct CLIP,HEMLINDA CHRISTIANSEN FDA Start: 10-30-2019 Total cholecystectomy with exploration of common bile duct DRESSING,FIBRILLAR 1X2 1960 FDA Start: 10-30-2019 Total cholecystectomy with exploration of common bile duct CLIP,MARY CHRISTIANSEN FDA Start: 10-30-2019 Total cholecystectomy with exploration of common bile duct CLIP,MARY CHRISTIANSEN FDA Start: 10-30-2019 Total cholecystectomy with exploration of common bile duct CLIP,HEMLINDA CHRISTIANSEN FDA Start: 10-30-2019 Total cholecystectomy with exploration of common bile duct CLIP,HEMOLOAYE FERNANDEZ WEAYE FDA Start: 10-30-2019 Total cholecystectomy with exploration of common bile duct DRESSING,FIBRILLAR 1X2 1960 FDA Start: 10-30-2019 Arthroscopy, shoulder, with rotator cuff repair FIBERTAPE FDA Start: 08-20-2022 Arthroscopy, shoulder, with rotator cuff repair FIBERTAPE [id number] FDA Start: 08-20-2022 Arthroscopy, shoulder, with rotator cuff repair ([id number]) Tendon/ligament bone anchor, bioabsorbable [id number] FDA Start: 08-20-2022 Arthroscopy, shoulder, with rotator cuff repair FIBERTAPE FDA Start: 08-20-2022 Arthroscopy, shoulder, with rotator cuff repair FIBERTAPE [id number] FDA Start: 08-20-2022 Arthroscopy, shoulder, with rotator cuff repair FIBERTAPE FDA Start: 08-20-2022 Arthroscopy, shoulder, with rotator cuff repair FIBERTAPE [id number] FDA Start: 08-20-2022 Arthroscopy, shoulder, with rotator cuff repair FIBERTAPE FDA Start: 08-20-2022 Arthroscopy, shoulder, with rotator cuff repair FIBERTAPE [id number] FDA Start: 08-20-2022 Arthroscopy, shoulder, with rotator cuff repair FIBERTAPE FDA Start: 08-20-2022 Arthroscopy, shoulder, with rotator cuff repair FIBERTAPE [id number] FDA Start: 08-20-2022 Arthroscopy, shoulder, with rotator cuff repair FIBERTAPE FDA Start: 08-20-2022 Arthroscopy, shoulder, with rotator cuff repair FIBERTAPE [id number] FDA Start: 08-20-2022 Arthroscopy, shoulder, with rotator cuff repair FIBERTAPE FDA Start: 08-20-2022 Arthroscopy, shoulder, with rotator cuff repair FIBERTAPE [id number] FDA Start: 08-20-2022 Arthroscopy, shoulder, with rotator cuff repair FIBERTAPE FDA Start: 08-20-2022 Arthroscopy, shoulder, with rotator cuff repair FIBERTAPE [id number] FDA Start: 08-20-2022 Arthroscopy, shoulder, with rotator cuff repair FIBERTAPE FDA Start: 08-20-2022 Arthroscopy, shoulder, with rotator cuff repair FIBERTAPE [id number] FDA Start: 08-20-2022 Arthroscopy, shoulder, with rotator cuff repair FIBERTAPE FDA Start: 08-20-2022 Arthroscopy, shoulder, with rotator cuff repair FIBERTAPE [id number] FDA Start: 08-20-2022 Arthroscopy, shoulder, with rotator cuff repair FIBERTAPE FDA Start: 08-20-2022 Arthroscopy, shoulder, with rotator cuff repair FIBERTAPE [id number] FDA Start: 08-20-2022 Arthroscopy, shoulder, with rotator cuff repair FIBERTAPE FDA Start: 08-20-2022 Arthroscopy, shoulder, with rotator cuff repair FIBERTAPE [id number] FDA Start: 08-20-2022 Arthroscopy, shoulder, with rotator cuff repair FIBERTAPE FDA Start: 08-20-2022 Arthroscopy, shoulder, with rotator cuff repair FIBERTAPE [id number] FDA Start: 08-20-2022 Arthroscopy, shoulder, with rotator cuff repair FIBERTAPE FDA Start: 08-20-2022 Arthroscopy, shoulder, with rotator cuff repair FIBERTAPE [id number] FDA Start: 08-20-2022 Arthroscopy, shoulder, with rotator cuff repair FIBERTAPE FDA Start: 08-20-2022 Arthroscopy, shoulder, with rotator cuff repair FIBERTAPE [id number] FDA Start: 08-20-2022 Arthroscopy, shoulder, with rotator cuff repair FIBERTAPE FDA Start: 08-20-2022 Arthroscopy, shoulder, with rotator cuff repair FIBERTAPE [id number] FDA Start: 08-20-2022 Arthroscopy, shoulder, with rotator cuff repair FIBERTAPE FDA Start: 08-20-2022 Arthroscopy, shoulder, with rotator cuff repair FIBERTAPE [id number] FDA Start: 08-20-2022 Arthroscopy, shoulder, with rotator cuff repair FIBERTAPE FDA Start: 08-20-2022 Arthroscopy, shoulder, with rotator cuff repair FIBERTAPE [id number] FDA Start: 08-20-2022 Arthroscopy, shoulder, with rotator cuff repair FIBERTAPE FDA Start: 08-20-2022 Arthroscopy, shoulder, with rotator cuff repair FIBERTAPE [id number] FDA Start: 08-20-2022 Arthroscopy, shoulder, with rotator cuff repair FIBERTAPE FDA Start: 08-20-2022 Arthroscopy, shoulder, with rotator cuff repair FIBERTAPE [id number] FDA Start: 08-20-2022 Arthroscopy, shoulder, with rotator cuff repair FIBERTAPE FDA Start: 08-20-2022 Arthroscopy, shoulder, with rotator cuff repair FIBERTAPE [id number] FDA Start: 08-20-2022 Stent Phu Synerg y Xd [id number] - [id number] Start: 09-14-2024 Goals Date Patient Goal Desired Activity /State Functional Status Date Assessment Result Facility 08-21-2022 Functional status Ambulates [facility] Work Phone: Mental Status Date Assessment Result Facility 07-09-2023 Cognitive function Level Of Cons ciousness Awake;Alert;Appropriate [facility] Work Phone: 05-20-2023 Cognitive function Voice/Name [facility] Work Phone: 12-05-2022 Cognitive function Voice/Name [facility] Work Phone: 08-21-2022 Cognitive function Voice/Name [facility] Work Phone: 01-12-2022 Cognitive function Level Of Cons ciousness Awake;Appropriate [facility] Work Phone: 01-12-2022 Cognitive function Voice/Name [facility] Work Phone: 09-09-2021 Cognitive function Voice/Name [facility] Work Phone: Clinical Notes 09-26-2020 to 10-19-2024 Telephone Encounter - DANIELLE Whitehead CNP - 10/19/2024 4:40 PM EDTTelephone Encounter - DANIELLE Whitehead CNP - 10/19/2024 4:40 PM Brandi Zarate RN - 10/18/2024 9:18 AM EDT Note Date & Type Note Facility 10-19-2024 Telephone encounter Note Great news, Tried to return phone call but no voice mail. Continue with same plan. [facility] 10-19-2024 Miscellaneous Notes Great news, Tried to return phone call but no voice mail. Continue with same plan. Pt called wanted Danisha to know he feels Awesome! Med changes are great, no chest pain, doing yard work, walking more. documented in this encounter [facility] 10-19-2024 Telephone encounter Note Pt called wanted Danisha to know he feels Awesome! Med changes are great, no chest pain, doing yard work, walking more. [facility] 10-18-2024 Note 10/18/24 0918 BPCI Late Drop? Program late drop? No BPCI Outreach Assessment Selection Which outreach assessment are you completing? 30 Day BPCI - 30 Day Outreach Did patient answer phone call? No [facility] 10-18-2024 History of Presen t illness Narrative 10/18/24 0918 BPCI Late Drop? Program late drop? No BPCI Outreach Assessment Selection Which outreach assessment are you completing? 30 Day BPCI - 30 Day Outreach Did patient answer phone call? No BPCI 30 day outreach BPCI hospitalization: Procedures: LHC on 09/14/24 for increased daily angina despite increased anti-anginal medications. Echo was with preserved EF 55%, now decreased with EF of 38% on 08/24/24. EMR reviewed. CM spoke to the patient 10/09/24- Echo was scheduled per patients request. Chart reviewed for BPCI outreach. Phone call to patient, no answer, left VM to please return call. Will follow up for next BPCI outreach. Scheduled BPCI PRN call to check on the patient. documented in this encounter [facility] 10-18-2024 Note BPCI 30 day outreach BPCI hospitalization: Procedures: LHC on 09/14/24 for increased daily angina despite increased anti-anginal medications. Echo was with preserved EF 55%, now decreased with EF of 38% on 08/24/24. EMR reviewed. CM spoke to the patient 10/09/24- Echo was scheduled per patients request. Chart reviewed for BPCI outreach. Phone call to patient, no answer, left VM to please return call. Will follow up for next BPCI outreach. Scheduled BPCI PRN call to check on the patient. [facility] 10-09-2024 History of Presen t illness Narrative 10/09/24 1443 BPCI Late Drop? Program late drop? No BPCI Outreach Assessment Selection Which outreach assessment are you completing? 21 Day BPCI - 21 Day Outreach Did patient answer phone call? Yes Have you noticed any negative changes in your condition? No Have you had any issues contacting your provider regarding any concerns? No Do you have any concerns with your medication(s)? No Any complications with post discharge services? No Any concerns with your DME equipment? No Are there any additional items you need? No Any questions about your condition you are unsure about that I can help clarify? Yes (sending message to Cardiology-France Herrera to see if the patient can have repeat Echo on 02/07/25 per patients request.) Reminded patient about 30 day window to re-admit to SNF/HHC if needed. N/A BP 21 day outreach BPCI hospitalization: Procedures: LHC on 09/14/24 for increased daily angina despite increased anti-anginal medications. Echo was with preserved EF 55%, now decreased with EF of 38% on 08/24/24. EMR reviewed. The patient had office visit with Cardiology 09/28/24. Called mobile number [phone] and spoke to the patient. The patient reports since his procedure he has been feeling much better. The patient reports doing yard work and walking more. Discussed follow up visits scheduled with Cardiology- the patient wanted to know if he can have his repeat Echo scheduled the same day as his follow up with with Dr. Ortega on 02/07/25. This RN agreed to message Cardiology-France Herrera CNP to see if this is possible. CPAP machine? Patient stated he has sleep study scheduled tonight and then CPAP machine will be ordered based on results of sleep study. Discussed medications-no refills needed and no questions or concerns. Overall the patient is doing well with nothing to report today. Scheduled [facility] 30 day outreach. Patient is scheduled with Dr. Escobedo on 02/07/2025, [place], please try and get his repeat ECHO for LV function, scheduled the same day. See order, I tried to call him to discuss, but he did not answer, no Voice mail. documented in this encounter [facility] 10-09-2024 Miscellaneous Notes Addended by: DANISHA SPAIN on: 10/10/2024 01:52 PM Modules accepted: Orders documented in this encounter [facility] 10-09-2024 Note Addended by: DANISHA SPAIN on: 10/10/2024 01:52 PM Modules accepted: Orders [facility] 10-09-2024 Note Addended by: DANISHA SPAIN on: 10/10/2024 01:52 PM Modules accepted: Orders [facility] 10-09-2024 Note BPCI 21 day outreach [facility] hospitalization: Procedures: LHC on 09/14/24 for increased daily angina despite increased anti-anginal medications. Echo was with preserved EF 55%, now decreased with EF of 38% on 08/24/24. EMR reviewed. The patient had office visit with Cardiology 09/28/24. Called mobile number [phone] and spoke to the patient. The patient reports since his procedure he has been feeling much better. The patient reports doing yard work and walking more. Discussed follow up visits scheduled with Cardiology- the patient wanted to know if he can have his repeat Echo scheduled the same day as his follow up with with Dr. Ortega on 02/07/25. This RN agreed to message Cardiology-France Herrera CNP to see if this is possible. CPAP machine? Patient stated he has sleep study scheduled tonight and then CPAP machine will be ordered based on results of sleep study. Discussed medications-no refills needed and no questions or concerns. Overall the patient is doing well with nothing to report today. Scheduled BPCI 30 day outreach. [facility] 10-02-2024 Note 10/02/24 1009 BPCI Late Drop? Program late drop? No BPCI Outreach Assessment Selection Which outreach assessment are you completing? 14 Day BPCI - 14 Day Outreach Did patient answer phone call? No [facility] 10-02-2024 Note BPCI 14 day outreach BPCI hospitalization: Procedures: LHC on 09/14/24 for increased daily angina despite increased anti-anginal medications. Echo was with preserved EF 55%, now decreased with EF of 38% on 08/24/24. EMR reviewed. The patient had office visit 09/28/24 with Cardiology: He presents for follow-up today. He has been feeling great. He has not had any angina or used a SL NTG. He has had some mild dizziness , but not syncope. He has been active with yard work and working out in his shop. His weight was down to 293 on his scale at home. He still has not heard about his new CPAP machine. Follow up appts: 12/28 Cardiology 02/07 Cardiology Chart reviewed for BPCI outreach. Phone call to patient, no answer, left VM to please return call. Will follow up for next BPCI outreach-scheduled BPCI 21 day outreach-has patient heard about CPAP machine? [facility] 09-28-2024 Telephone encounter Note Pt asking when he needs another Echo. Please call patient [facility] 09-28-2024 Miscellaneous Notes Pt asking when he needs another Echo. Please call patient documented in this encounter [facility] 09-28-2024 History of Presen t illness Narrative Images from the original note were not included. [facility] [address] [facility] [id number] Dept: [phone] Dept Visit Type: Established NAME: Shannon Olson : 1955 Reason for Visit: No chief complaint on file. Subjective HPI Shannon Olson is an 68 y.o. male, now followed by Dr. Ortega, with PMH of CAD, s/p multiple coronary stenting, NSTEMI, HTN, HLD, Afib on OAC, GERD, HIPOLITO, obesity, TIA who presents for a LHC on 09/14 for increased daily angina despite increased anti-anginal medications. Echo was with preserved EF 55%, now decreased with EF of 38% on 08/24/24. His last LHC was in 02/2023 and showed occluded RCA, with patent stents to LAD and Circumflex. LHC today showed 95% stenosis of the circumflex artery and a PCI with PTCA, IVL, PHU was completed successfully. Right radial artery was used. He tolerated the procedure well and remained stable. He was loaded again with Plavix 300 mg. He was observed over night due to burning chest discomfort and sensation of the room spinning. He was discharged the following morning. He presents for follow-up today. He has been feeling great. He has not had any angina or used a SL NTG. He has had some mild dizziness , but not syncope. He has been active with yard work and working out in his shop. His weight was down to 293 on his scale at home. He still has not heard about his new CPAP machine. Allergies Allergen Reactions Penicillins Rash Current Outpatient Medications Medication Instructions amiodarone (PACERONE) 200 mg, Oral, Daily amLODIPine (NORVASC) 5 mg, Oral, Daily cholecalciferol (VITAMIN D-3) 800 Units, Daily clopidogrel (PLAVIX) 75 mg, Oral, Daily Eliquis 5 mg, Oral, 2 times daily ezetimibe (ZETIA) 10 mg, Oral, Daily isosorbide mononitrate ER (IMDUR) 120 mg, Oral, Daily metoprolol succinate XL (TOPROL-XL) 50 mg, Oral, Daily, Do not crush or chew. nitroglycerin (NITROSTAT) 0.4 mg, SubLINGual, Every 5 min PRN, May repeat dose every 5 minutes for up to 3 doses total. ranolazine (RANEXA) 500 mg, Oral, 2 times daily, Do not crush, chew, or split. rosuvastatin (CRESTOR) 40 mg, Oral, Daily spironolactone (ALDACTONE) 25 mg, Oral, 2 times daily torsemide (DEMADEX) 20 mg, Oral, 2 times daily Past Medical History: Diagnosis Date Angina pectoris ([facility]) Anxiety Arrhythmia A-fib Asthma CAD (coronary artery disease) Cerebral artery occlusion with cerebral infarction ([facility]) COPD (chronic obstructive pulmonary disease) ([facility]) Depression WATTS (dyspnea on exertion) Fatigue GERD (gastroesophageal reflux disease) History of cardioversion 05/07/2016 Successful conversion of a-fib to SR History of left heart catheterization 05/07/2016 60% stenosis right posterior descending, patent stents in prox, mid & distal RCA, patent stents in med LCx. Findings unchanged from previous study. 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 NSTEMI (non-ST elevated myocardial infarction) ([facility]) 12/2012 NSTEMI (non-ST elevated myocardial infarction) ([facility]) 05/2014 Obesity Old [place] (myocardial infarction) HIPOLITO (obstructive sleep apnea) HIPOLITO on CPAP PAF (paroxysmal atrial fibrillation) ([facility]) Rheumatoid arthritis(714.0) ([facility]) ST segment elevation myocardial infarction (STEMI) of anterolateral wall, subsequent episode of care ([facility]) TIA (transient ischemic attack) Social History Tobacco Use Smoking status: Never Smokeless tobacco: Never Substance Use Topics Alcohol use: Not Currently Past Surgical History: Procedure Laterality Date CAPSULOTOMY, HAND 05/07/2016 CARDIAC CATHETERIZATION N/A 03/01/2023 Performed by Zoie Gonzales MD at [facility] Cardiac Cath/EP Lab CARDIAC CATHETERIZATION Left 09/14/2024 Performed by Dominguez Ortega MD at [facility] Cardiac Cath/EP Lab CARDIAC CATHETERIZATION N/A 09/14/2024 Performed by Dominguez Ortega MD at [facility] Cardiac Cath/EP Lab CARDIAC CATHETERIZATION N/A 09/14/2024 Performed by Dominguez Ortega MD at [facility] Cardiac Cath/EP Lab CARDIAC CATHETERIZATION N/A 09/14/2024 Performed by Dominguez Ortega MD at [facility] Cardiac Cath/EP Lab CARDIAC PROCEDURE Left 05/2015 CARDIAC PROCEDURE Left 06/03/2017 CARDIAC PROCEDURE Bilateral 01/2010 CARDIAC PROCEDURE Left 09/05/2019 PCI to distal RCA and PL branch CHOLECYSTECTOMY 10/30/2019 CORONARY ANGIOPLASTY WITH STENT PLACEMENT Left 11/2006 restent RCA, PHU to CX CORONARY ANGIOPLASTY WITH STENT PLACEMENT Left 05/2014 PTCA /cuttung balloon to instent restenosis RCA CORONARY ANGIOPLASTY WITH STENT PLACEMENT Left 10/2006 DESto prox Rt PAV, mid & dist RCA CORONARY ANGIOPLASTY WITH STENT PLACEMENT Left 11/2014 PHU to RCA CORONARY ANGIOPLASTY WITH STENT PLACEMENT Left 10/2007 PHU to Prox Rt PAV, mid-dist RCA CORONARY ANGIOPLASTY WITH STENT PLACEMENT Left 03/2009 PHU to mid RCA CORONARY ANGIOPLASTY WITH STENT PLACEMENT Left 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 CORONARY ANGIOPLASTY WITH STENT PLACEMENT Left 10/2013 PHU to prox & mid RCA CORONARY ANGIOPLASTY WITH STENT PLACEMENT Left 12/2007 PHU to LAD CORONARY ANGIOPLASTY WITH STENT PLACEMENT Bilateral 03/17/2021 Phu to the Mid RCA, and the Distal RCA CORONARY ANGIOPLASTY WITH STENT PLACEMENT Left 12/2012 PHU to mid RCA & prox-mid Rt GRACE JOINT REPLACEMENT 03/2019 TOTAL HIP ARTHROPLASTY Left 12/2012 Family History Problem Relation Name Age of Onset Diabetes Paternal Grandmother Diabetes Maternal Grandfather Cancer Sister Hypertension Mother Diabetes Sister Diabetes Paternal Grandfather Heart disease Paternal Grandmother Heart disease Paternal Grandfather Cancer Father Diabetes Brother Objective Vitals: 09/28/24 1123 BP: 126/82 BP Location: Left arm Patient Position: Sitting BP Cuff Size: Large adult Pulse: 60 SpO2: 96% Weight: (!) 302 lb 12.8 oz (137 kg) Height: 6' 2 (1.88 m) Physical Exam Constitutional: NAD Psychiatric: Alert. Medical insight good Neck: No JVD, no brutis Respiratory: Lungs are clear Heart: Regular ; Nl S1 and S2, no murmur, no rub, gallop Abdomen: NABS; soft, non-tender, non-distended Extremities: no LE edema , Right radial catheterization site well healed. Right Radial & ulnar pulse 2+.Brisk Capillary refill. Warm to touch. Skin: Warm to touch and well perfused Data Reviewed and Summarized Lab Results Component Value Date WBC 9.2 09/15/2024 HGB 11.7 (L) 09/15/2024 HCT 36.3 (L) 09/15/2024 MCV 91.9 09/15/2024 PLT 194 09/15/2024 Lab Results Component Value Date GLUCOSE 116 (H) 09/15/2024 CALCIUM 8.3 (L) 09/15/2024 NA 139 09/15/2024 K 4.0 09/15/2024 CO2 21 (L) 09/15/2024 CL 111 (H) 09/15/2024 BUN 21 09/15/2024 CREATININE 1.26 (H) 09/15/2024 Lab Results Component Value Date CHLPL 144 08/05/2021 CHLPL 155 06/07/2019 CHOL 161 09/15/2024 CHOL 135 02/19/2023 CHOL 251 (H) 12/07/2022 Lab Results Component Value Date TRIG 202 (H) 09/15/2024 TRIG 190 (A) 02/19/2023 TRIG 227 (H) 12/07/2022 Lab Results Component Value Date HDL 39 (L) 09/15/2024 HDL 47 02/19/2023 HDL 37 (L) 12/07/2022 Lab Results Component Value Date LDLCALC 82 09/15/2024 Lab Results Component Value Date ALT 17 09/15/2024 AST 20 09/15/2024 ALKPHOS 75 09/15/2024 BILITOT 1.5 (H) 09/15/2024 Lab Results Component Value Date TSH 1.22 06/20/2024 CARDIAC TESTING REVIEWED: EKG: Encounter Date: 09/14/24 ECG 12 lead Result Value Heart Rate 53 QRSD Interval 174 QT Interval 681 QTC Interval 636 P Freehold 14 QRS Freehold -5 T Wave Freehold 166 SD Interval 202 Impression Sinus bradycardia Left bundle branch block Electronically Signed On 09-15-2024 19:13:56 EDT by Alvrao Elliott ECHOCARDIOGRAM: 08/24/24 TRANSTHORACIC ECHOCARDIOGRAM (TTE) COMPLETE (CONTRAST/BUBBLE/3D PRN) 08/24/2024 3:44 PM (Final) Interpretation Summary Left Ventricle: Left ventricle is mildly dilated. LVIDd is 6.6 cm. Increased wall thickness. Septal thickening. IVSd is 1.5 cm. Moderately reduced left ventricular systolic function. EF by 2D Simpsons Biplane is 38%. Right Ventricle: Right ventricle is dilated. Normal systolic function. Echocardiographic features suggestive of a prominent moderator band. Right Atrium: Right atrium is mildly dilated. Aorta: Normal sized sinuses of Valsalva. Dilated ascending aorta. Ao ascending diameter is 4.7 cm. Signed by: Smita Montano MD on 08/24/2024 3:44 PM HEART CATH: 09/14/24 CARDIAC PROCEDURE 09/25/2024 7:24 AM (Final) Conclusion Background: This is a very pleasant 68 y.o. M with hypertension, hyperlipidemia, paroxysmal atrial fibrillation and extensive history of CAD s/p numerous stents in all coronary arteries. 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 He has been having exertional angina in the outpatient setting and is presenting now for coronary angiogram with left heart cath given crescendo angina. Findings: Coronary Anatomy: Left main with minimal disease. LAD with patent proximal to mid segment stent with mild in-stent restenosis. Circumflex with 95% heavily calcified mid segment stenosis with 80% distal OM in-stent restenosis. RCA with 100% chronic total occlusion of the mid segment. Distal vessel is filling via L->R collaterals Hemodynamics: No significant aortic stenosis LVEDP of 11 mmHg Intervention: Coronary Revascularization: - PCI of the mid LCX into OM1: - Sequential predilation of the mid left circumflex and proximal to mid OM 1 using a 2.5 x 20 mm trek balloon, followed by a 3.5 x 15 mm NC trek balloon. -IVUS imaging was obtained and showed significantly calcified circumferential calcium in the mid LCx to proximal major OM so the decision was made to proceed with shockwave balloon angioplasty using a 4.0 x 12 mm shockwave IV L balloon (120 pulses delivered). Successful DRUG ELUTING STENT (3.5 x 48 mm Synergy PHU) placed to the 95% lesion of the mid Lcx and 80% proximal to mid OM (in-stent restenosis) with minimal residual stenosis. - Post-dilation performed using a 4.5 x 12 mm NC balloon. -IVUS used to appropriately size stent Recommendations: -Continue Eliquis 5mg BID with Plavix 75 mg daily, likely long-term. -Continued aggressive risk factor modification and medical therapy Signed by: Dominguez Ortega MD on 09/25/2024 7:24 AM Assessment /Plan 1. CAD in [place] artery (Primary)with reduced EF of 38%, S/P LHC on 09/14/2024 with PHU to CX, PCI to mid Lcx into OM 1, Patent stent to LAD, known occluded RCA: - Continue Plavix 75 mg daily, no ASA due to need for OAC . - Continue GDMT, Toprol XL 50 mg daily, reduce norvasc 5 mg daily, Imdur 120 mg daily, Aldactone 25 mg bid - Reduce Ranexa to 500 mg bid, ( He was taking 1000 mg in the am ) , will plan to wean off - Repeat ECHO in 3-6 month - NO Cardiac rehab , He lives in [place] and is active with yard work and working on his [employer]. -- Lifestyle modifications, low fat,low chol diet, exercise at least 3-5 times a week , and good blood pressure control - He will call me in 2 weeks, with plans to reduce Imdur or stop Ranexa if no angina. 2. PAF (paroxysmal atrial fibrillation) (HCC) - Last EKG Sinus bradycardia - Continue Amiodarone 200 mg daily, labs currentl -Continue Apixiban 5 mg bid 3. Essential hypertension - well controlled Discussed nonpharmacological ways of lowering her blood pressure including low-sodium diet, weight loss and exercise. 4. Mixed hyperlipidemia: - LDL = 82 -09/15/2024, not at goal - add Zetia 10 mg daily -repeat lipids in 6 months Follow up in about 3 months (around 12/29/2024) for France GONZALZE - Date of Service: 09/28/2024 Nurse Practitioner in Interventional Cardiology [facility] - Cardiology [address] [place] [id number] p [phone] [email or web address] documented in this encounter [facility] 09-28-2024 Instructions DANIELLE Whitehead CNP - 09/28/2024 11:30 AM EDT Reduce norvasc to 5 mg once a day , reduce Ranexa to 500 mg twice a day Add Zetia 10 mg daily Call me in 2-3 weeks [phone] documented in this encounter [facility] 09-25-2024 Note 09/25/24 1037 BPCI Late Drop? Program late drop? No BPCI Outreach Assessment Selection Which outreach assessment are you completing? 7 Day BPCI - 7 Day Outreach Did patient answer phone call? No [facility] 09-25-2024 Note BPCI 7 day outreach- outpatient BPCI Procedures: LHC on 09/14 for increased daily angina despite increased anti-anginal medications. Echo was with preserved EF 55%, now decreased with EF of 38% on 08/24/24. Findings: Coronary Anatomy: Left main with minimal disease. LAD with patent proximal to mid segment stent with mild in-stent restenosis. Circumflex with 95% heavily calcified mid segment stenosis with 80% distal OM in-stent restenosis. RCA with 100% chronic total occlusion of the mid segment. EMR reviewed. Follow up appts: 09/28 Cardiology 02/07 Cardiology Chart reviewed for BPCI outreach. Phone call to patient, no answer, left VM to please return call. Will follow up for next BPCI outreach-scheduled BPCI 14 day outreach-how was follow up with Cardiology? [facility] 09-18-2024 History of Presen t illness Narrative BPCI referral- patient on outpatient BPCI list today-came to outpatient report late. Scheduled BPCI 7 day outreach. EMR reviewed. BPCI hospitalization: Procedures: Cath Summary: 09/14/24: Findings: Coronary Anatomy: Left main with minimal disease. LAD with patent proximal to mid segment stent with mild in-stent restenosis. Circumflex with 95% heavily calcified mid segment stenosis with 80% distal OM in-stent restenosis. RCA with 100% chronic total occlusion of the mid segment. HOSPITAL COURSE : Mr. Olson is a 68 year old male with PMH of CAD, s/p multiple coronary stenting, NSTEMI, HTN, HLD, Afib on OAC, GERD, HIPOLITO, obesity, TIA who presents for a LHC on 09/14 for increased daily angina despite increased anti-anginal medications. Echo was with preserved EF 55%, now decreased with EF of 38% on 08/24/24. His last LHC was in 02/2023 and showed occluded RCA, with patent stents to LAD and Circumflex. LHC today showed 95% stenosis of the circumflex artery and a PCI with PTCA, IVL, PHU was completed successfully. Right radial artery was used. He tolerated the procedure well and remained stable. He was loaded again with Plavix 300 mg. He was observed over night due to burning chest discomfort and sensation of the room spinning. He remained stable overnight. The next morning he felt much improved and denied any angina, dyspnea, palpitations, bleeding, syncope. Patient educated on post PCI discharge activity, cath site care, medications, cardiac rehab, follow up care. Instructed that he must continue plavix and eliquis without interruption for at least 1 year. He states he does not need refills. Lopressor changed to Toprol xl due to lower EF of 38%. Reassess as outpatient adding ACEi/ARB, as he had ALBINA in past. Discharged to home in stable condition. documented in this encounter [facility] 09-18-2024 Note BPCI referral- lisa hi on outpatient BPCI list today-came to outpatient report late. Scheduled BPCI 7 day outreach. EMR reviewed. BPCI hospitalization: Procedures: Cath Summary: 09/14/24: Findings: Coronary Anatomy: Left main with minimal disease. LAD with patent proximal to mid segment stent with mild in-stent restenosis. Circumflex with 95% heavily calcified mid segment stenosis with 80% distal OM in-stent restenosis. RCA with 100% chronic total occlusion of the mid segment. HOSPITAL COURSE : Mr. Olson is a 68 year old male with PMH of CAD, s/p multiple coronary stenting, NSTEMI, HTN, HLD, Afib on OAC, GERD, HIPOLITO, obesity, TIA who presents for a LHC on 09/14 for increased daily angina despite increased anti-anginal medications. Echo was with preserved EF 55%, now decreased with EF of 38% on 08/24/24. His last LHC was in 02/2023 and showed occluded RCA, with patent stents to LAD and Circumflex. LHC today showed 95% stenosis of the circumflex artery and a PCI with PTCA, IVL, PHU was completed successfully. Right radial artery was used. He tolerated the procedure well and remained stable. He was loaded again with Plavix 300 mg. He was observed over night due to burning chest discomfort and sensation of the room spinning. He remained stable overnight. The next morning he felt much improved and denied any angina, dyspnea, palpitations, bleeding, syncope. Patient educated on post PCI discharge activity, cath site care, medications, cardiac rehab, follow up care. Instructed that he must continue plavix and eliquis without interruption for at least 1 year. He states he does not need refills. Lopressor changed to Toprol xl due to lower EF of 38%. Reassess as outpatient adding ACEi/ARB, as he had ALBINA in past. Discharged to home in stable condition. [facility] 09-15-2024 Plan of care note Problem: Pain - Adult Goal: Verbalizes/displays adequate comfort level or baseline comfort level Outcome: Progressing Problem: Safety - Adult Goal: Free from fall injury Outcome: Progressing Problem: Discharge Planning Goal: Discharge to home or other facility with appropriate resources Outcome: Progressing [facility] 09-15-2024 Miscellaneous Notes Problem: Pain - Adult Goal: Verbalizes/displays adequate comfort level or baseline comfort level Outcome: Progressing Problem: Safety - Adult Goal: Free from fall injury Outcome: Progressing Problem: Discharge Planning Goal: Discharge to home or other facility with appropriate resources Outcome: Progressing Problem: Pain - Adult Goal: Verbalizes/displays adequate comfort level or baseline comfort level Outcome: Progressing Problem: Safety - Adult Goal: Free from fall injury Outcome: Progressing Problem: Discharge Planning Goal: Discharge to home or other facility with appropriate resources Outcome: Progressing Report called to [facility] CONDUIT INSTALLER updated on pt status, no improvement in chest pressure and now with room spinning dizziness. CONDUIT INSTALLER at pt bedside CONDUIT INSTALLER notified of pt c/o chest pressure 10/31 post PCI. Vitals stable. Post procedure EKG being completed. documented in this encounter [facility] 09-14-2024 Plan of care note Problem: Pain - Adult Goal: Verbalizes/displays adequate comfort level or baseline comfort level Outcome: Progressing Problem: Safety - Adult Goal: Free from fall injury Outcome: Progressing Problem: Discharge Planning Goal: Discharge to home or other facility with appropriate resources Outcome: Progressing [facility] 09-14-2024 History of Presen t illness Narrative S/P PCI Seen in Prep and Recovery for C/O chest burning discomfort and sensation of room spinning. Discomfort not angina and is tender to palpation. Likely due to PCI with IVL and PTCA. Vitals and EKG are stable, no distress. Will observe overnight. Fluids infusing. Fellow and Dr. Ortega updated. Orders placed for admission. documented in this encounter [facility] 09-14-2024 Nurse Note Report called to Gia [facility] 09-14-2024 Nurse Note CONDUIT INSTALLER updated on pt status, no improvement in chest pressure and now with room spinning dizziness. [facility] 09-14-2024 Note Attestation signed by Dominguez Ortega MD at 09/23/2024 2:04 PM I, Dr. Ortega, saw and evaluated the patient on 09/15/2024. I personally obtained the rolon and critical portions of the history and physical exam. I reviewed the chart and discussed the patient with the Nurse Practitioner. I agree with the Nurse Practitioner's medical decision making. HPI: Patient admitted with escalating angina. Cath showed new circumflex lesion, successful PCI. Had some shortness of breath after procedure, possibly brilinta related. Villanueva well through the night into this morning. Assessment/Plan: Plan to discharge today with close follow up, on plavix and eliquis. Continue statin. Close follow up scheduled. Name: Shannon Olson Date of : 1955 Date of Admission: 09/14/2024 Date of Discharge: 09/15/2024 Admitting physician: Dominguez Ortega MD Discharge Attending: Rebecca De Dios APRN - LABOR TRAINING MANAGER Primary Care Physician: Finn Ferrell MD CC: s/p LHC/ PCI HPI: Mr. Olson had PCI/PTCA/IVL/ PHU of mid LCX into OM1 yesterday. He had burning discomfort after procedure that is now much improved. He also had sensation of room spinning yesterday, which is resolved. He was observed overnight and this morning feels much better. Denies angina, dyspnea, bleeding, palpitations, syncope. Right radial site is stable. Review of Systems: Review of Systems Constitutional: Negative for activity change, chills, diaphoresis, fatigue and fever. HENT: Negative for nosebleeds and trouble swallowing. Eyes: Negative for discharge and visual disturbance. Respiratory: Negative for apnea, cough, chest tightness, shortness of breath and wheezing. Cardiovascular: Negative for chest pain, palpitations and leg swelling. Gastrointestinal: Negative for abdominal distention, abdominal pain, blood in stool, diarrhea, nausea and vomiting. Endocrine: Negative for cold intolerance and heat intolerance. Genitourinary: Negative for hematuria. Musculoskeletal: Negative for gait problem and myalgias. Skin: Negative for color change and rash. Neurological: Negative for dizziness, seizures, syncope, facial asymmetry, speech difficulty, weakness, light-headedness, numbness and headaches. Hematological: Does not bruise/bleed easily. Psychiatric/Behavioral: Negative for dysphoric mood. Physical Exam: Physical Exam Vitals reviewed. Constitutional: General: He is not in acute distress. Appearance: Normal appearance. He is obese. He is not diaphoretic. Comments: Up in chair HENT: Head: Normocephalic. Mouth/Throat: Pharynx: No oropharyngeal exudate. Eyes: General: Right eye: No discharge. Left eye: No discharge. Extraocular Movements: Extraocular movements intact. Cardiovascular: Rate and Rhythm: Regular rhythm. Bradycardia present. Pulses: Normal pulses. Heart sounds: Normal heart sounds. No murmur heard. No gallop. Comments: Right radial site dressing intact, no bleeding. Pulmonary: Effort: Pulmonary effort is normal. No [...] and oriented to person, place, and time. Cranial Nerves: No cranial nerve deficit. Psychiatric: Mood and Affect: Mood normal. Vitals: 09/14/24 2323 09/15/24 0328 09/15/24 0500 09/15/24 0750 BP: 148/67 133/60 142/67 BP Location: Left arm Left arm Left arm Patient Position: Sitting Sitting Lying Pulse: 57 61 63 Resp: 14 17 16 Temp: 36.4 ?C (97.6 ?F) 36.4 ?C (97.6 ?F) 36.5 ?C (97.7 ?F) TempSrc: Temporal Temporal Temporal SpO2: 92% 91% 97% Weight: (!) 308 lb 9.6 oz (140 kg) Height: Reason for Admission: [facility] Consultants: Cardiac Rehab HOSPITAL ADMISSION PROBLEM LIST: Patient Active Problem List Diagnosis Status post left heart catheterization CAD in [place] artery Class 2 obesity in adult Unstable angina (CMS/HCC) ([facility]) WATTS (dyspnea on exertion) Obesity Hyperlipidemia COPD (chronic obstructive pulmonary disease) ([facility]) Hypertension Atherosclerotic heart disease of [place] coronary artery with other forms of angina pectoris ([facility]) HIPOLITO on CPAP NSTEMI (non-ST elevated myocardial infarction) ([facility]) CAD (coronary artery disease) [facility] current use of antiarrhythmic drug [facility] current use of anticoagul (more content not included)... [facility] 09-14-2024 Nurse Note CONDUIT INSTALLER at pt bedside [facility] 09-14-2024 Hospital Discharg e hannah De Dios, METAL TILE LATHER - LABOR TRAINING MANAGER - 09/14/2024 2:35 PM EDT Call your doctor with any medication questions or if you notice any side effects from your medications. If you are unable to fill your medications, please call your [employer] immediately. The office number is located with [...] not relieved with 2 doses of Nitroglycerin. Wrist: Call your doctor if a lump at [...] 3-5 days. [address] driving for 24 hours. GIVE PCI PACKET (FROM SOLE ROUNDING MACHINE OPERATOR) TO PATIENT Give Coronary Artery Discharge Booklet PLEASE CALL YOUR HEART DOCTOR IF YOU [...] the sedative should be gone by tomorrow. Cardiac Rehab The Cardiac Rehab team at [facility] consists of highly skilled exercise physiologists, nurses, respiratory therapists and physicians working together with you. Our purpose is to help you have a full recovery and achieve the goals you set for yourself. Over the years many of our patients have returned to activities they assumed they would never do again! We can help restore your confidence and motivation to make lifestyle changes that can have a significant impact on your health and quality of life! We can help answer questions and concerns you may have about exercise, lifestyle, medications, diet, stress and anxiety which are common following a hospitalization. We monitor ECG and vital signs during exercise and discuss your progress with you and report to your physician. Cardiac Rehab is proven to help reduce readmissions, improve functional capacity and lower recurrence of problems with your heart. We have facilities at both [facility] and [facility]. At both locations we have street level parking which is free and our sites are easily accessible. For both [facility] you can contact us at . We invite you to call us with your questions or to get started in our program. If you have other questions or concerns be sure to ask your provider during your follow up visit. We look forward to seeing you there. Our locations: [facility] [address] [facility] [place]. Ground Floor [id number] - Ground floor The following attachments cannot be sent through Care Everywhere.Lowering Your Risk of Heart Disease ([place])Heart Healthy Diet ([place])documented in this encounter [facility] 09-14-2024 Note CONDUIT INSTALLER notified of pt c/ o chest pressure 6/10 post PCI. Vitals stable. Post procedure EKG being completed. [facility] 09-14-2024 Nurse Note CONDUIT INSTALLER notified of pt c/o chest pressure 6/10 post PCI. Vitals stable. Post procedure EKG being completed. [facility] 09-14-2024 Note H&P reviewed. The pa tient was examined and there are no changes to the H&P. [facility] 09-12-2024 Telephone encounter Note Prep for proc completed. [facility] [employer] Work Phone: 09-12-2024 Miscellaneous Notes Prep for proc completed. METAL TILE LATHER notified to complete prep for proc orders. Procedure being done: [facility] Date/time of procedure: 09/14/24 11 am Procedure physician: Dr. Ortega PRE-PROCEDURE CHECKLIST Completed: H&P, CMP, CBC Date completed: H&P: 08/24/24 CMP: 09/11/24 CBC: 09/11/24 EKG: will need am of procedure PT INR (if indicated): N/A Urine HCG (if indicated): N/A Last ICD/pacer check (if indicated): N/A ORDERS DAY OF PROCEDURE [] N/A [] Urine HCG [] POC Glucose [] POC INR [x] EKG on arrival [] BMP [] CBC Labs scanned in under Media I called and requested labs. She is faxing them over. Images from the original note were not included. PROCEDURE: LEFT HEART CATH PROCEDURE DATE: 09/14/24 PROCEDURE TIME: 11 am ARRIVE AT 9:30 am Report to the Central Lounge (first floor) at the hospital entrance at [address] [place] [address]. Nothing to eat or drink after midnight prior to your procedure unless otherwise instructed by your doctor. You may take your morning medications as directed by physician with a sip of water unless specified below. Bring a complete list of all of your medications and dosages. DO NOT TAKE Xeralto, Eliquis, and Pradaxa for 2 days. Plavix (clopidogrel) 75 mg continue to take as usual, including the morning of the procedure. Aspirin 81 mg on the day of procedure. DO NOT TAKE your diuretic (water pill) spironolactone or torsemide on the morning of procedure. Please make arrangements for a tank driver after the procedure. You will not be able to drive for 24 to 72 hours. Possibility for overnight stay - if on CPAP, please bring machine with you. If you have any questions regarding your medications, please call your doctor's office. All patients will be called the afternoon prior to the procedure with specific instructions if there should be any changes. If you do not receive a call by 4:30 pm, please call the Prep and Recovery area at [phone]. The schedule is not finalized until the afternoon, so please avoid calling before 4:30 pm. Dx: Procedure: LHC Date/Time: 09/14/2024 at 11:00a Surgeon: PB Location: [facility] Admission: OP Anesthesia: N/A No auth req per Medicare. On PB calendar and requested on Snap[employer]. Phone to patient, Dr. Ortega has reviewed his ECHO, reduce EF as compared to previous. He call the office with increased Episodes of angina. Taking more SL NTG than usual. Have max out his anti-angina medications. Holter monitor without atrial fibrillation. Low burden of PAC's and PVC's. Will need to fax order for labs to [facility]. Will add on for 09/14/2024 at 11 am., He will need an EKG the day of, has a recent OV from 08/24/2024. Notified patient of date and time. documented in this encounter [facility] 09-12-2024 Miscellaneous Notes Addended by: MIRYAM CASAS on: 09/12/2024 03:26 PM Modules accepted: Orders documented in this encounter [facility] 09-12-2024 Note Addended by: MIRYAM BELLAMY on: 09/12/2024 03:26 PM Modules accepted: Orders [facility] 09-12-2024 Note Addended by: MIRYAM BELLAMY on: 09/12/2024 03:26 PM Modules accepted: Orders [facility] 09-12-2024 Note Attestation signed by Dominguez Ortega MD at 09/19/2024 7:49 PM I, Dr. Ortega, saw and evaluated the patient. I personally obtained the rolon and critical portions of the history and physical exam. I reviewed the chart and discussed the patient with the Nurse Practitioner. I agree with the Nurse Practitioner's medical decision making. I spoke with Shannon Olson this morning. he tells me that nothing has changed clinically since our last office visit. We will proceed with the planned procedure. ADDENDUM: Pt scheduled for [facility] with Dr. Ortega on 09/14/24 at 11:00AM. No contrast allergy noted. Need EKG day of procedure. GFR 48 and needs pre-hydrated. Coronary Appropriate Use Criteria Coronary Presentation (select one): Worsening Angina new low EF History of CABG (select one): No Diabetes (select one): No Anginal Classification (CCS) within 2 weeks (select one): CCS III - Symptoms with everyday living activities, i.e. moderate limitation Anti-anginal Meds within 2 weeks (select all that apply): Yes: Beta Blockers, Calcium Channel Blockers, Long Acting Nitrates (Any), Ranolazine, Antiarrhythmic Agent Other, Aspirin, and Statin (Any) Stress or Imaging studies performed (select one), risk/extent of ischemia (select one if applicable): Yes, Echo with low EF Patient undergoing renal transplant or percutaneous valve procedure (select one): No NYHA Classification: Class I Frailty Score :3 [place] Protocol: Yes GFR<60 H+ P copied to chart from Danisha Spain's progress note dated 08/24/[address] Ortega. [facility] [address] [facility] [address] Dept: [phone] Dept Visit Type: Established NAME: Shannon Olson : 1955 Reason for Visit: Follow-up and Shortness of Breath Subjective HPI Shannon Olson is an 68 y.o. male, followed by Dr. Ortega, with PMH of CAD, with multiple coronary stents in all 3 vessels. Most recent LHC, 02/2023, demonstrated an occluded RCA, with patent stents to LAD and Circumflex. Labs from 06/20/2024 stable. He has been working with pulmonary and sleep medicine regarding his CPAP machine, currently he is not using it. He was seen urgently about 1 month ago, at which time, his antianginal medications were adjusted. Imdur was changed to 120 mg daily , ( not 60 mg bid), Norvasc increased to 10 mg daily, and Ranexa 1000 mg in am, 500 mg pm He is intolerant to high doses of Ranexa due to stomach issues and dizziness. He had similar issues with increasing to 1000 mg in the morning but now seems to be tolerating it okay. He presents for follow-up. He underwent an Echocardiogram today, as well as placement of his Holter monitor. Since last seen, he has had mild improvement in his angina. He still get WATTS. He has been using prophylactic sublingual nitroglycerin, and has been able to take short walks. His walks are somewhat limited secondary to needing a knee replacement. He usually has his angina in the morning, and then improves throughout the day once he has been taking his medications. He has never needed to use more than 1 sublingual nitroglycerin to relieve his angina. That he is using this frequently. He has been diligently working on weight loss, he is down about 10 pounds. He has been eating less and trying to increase his activity although this has been somewhat limited given his frequent episodes of angina. He does not appear volume overloaded. He is very compliant with his medications. Allergies Allergies Allergen Reactions Penicillins Rash Current Outpatient Medications Medication Instructions amiodarone (PACERONE) 200 mg, Oral, Daily amLODIPine (NORVASC) 5 mg, Oral, 2 times daily cholecalciferol (VITAMIN D-3) 800 Units, Daily clopidogrel (PLAVIX) 75 mg, Oral, Daily Eliquis 5 mg, Oral, 2 times daily isosorbide mononitrate ER (IMDUR) 120 mg, Oral, Daily metoprolol tartrate (LOPRESSOR) 50 mg, Oral, 2 times daily nitroglycerin (NITROSTAT) 0.4 mg, SubLINGual, Every 5 min PRN, May repeat dose every 5 minutes for up to 3 doses total. ranolazine (RANEXA) 500 mg, Oral, 2 times daily, Do not crush, chew, or split. rosuvastatin (CRESTOR) 40 mg, Oral, Daily spironolactone (ALDACTONE) 25 mg, Oral, 2 times daily torsemide (DEMADEX) 20 mg, Oral, 2 times daily Medical History Past Medical History: Diagnosis Date Angina pectoris (HCC) Anxiety Arrhythmia A-fib Asthma CAD (coronary artery disease) Cerebral artery occlusion with cerebral infarction (HCC) COPD (chronic obstructive pulmonary disease) (HCC) Depression WATTS (dyspnea on exertion) Fatigue GERD (gastroesophageal reflux disease) History of cardioversion 05/07/2016 Successful conversion of a-fib to SR History of left h (more content not included)... [facility] 09-12-2024 Note Attestation signed by Dominguez Ortega MD at 09/19/2024 7:49 PM I, Dr. Ortega, saw and evaluated the patient. I personally obtained the rolon and critical portions of the history and physical exam. I reviewed the chart and discussed the patient with the Nurse Practitioner. I agree with the Nurse Practitioner's medical decision making. I spoke with Shannon Olson this morning. he tells me that nothing has changed clinically since our last office visit. We will proceed with the planned procedure. ADDENDUM: Pt scheduled for C with Dr. Ortega on 09/14/24 at 11:00AM. No contrast allergy noted. Need EKG day of procedure. GFR 48 and needs pre-hydrated. Coronary Appropriate Use Criteria Coronary Presentation (select one): Worsening Angina new low EF History of CABG (select one): No Diabetes (select one): No Anginal Classification (CCS) within 2 weeks (select one): CCS III - Symptoms with everyday living activities, i.e. moderate limitation Anti-anginal Meds within 2 weeks (select all that apply): Yes: Beta Blockers, Calcium Channel Blockers, Long Acting Nitrates (Any), Ranolazine, Antiarrhythmic Agent Other, Aspirin, and Statin (Any) Stress or Imaging studies performed (select one), risk/extent of ischemia (select one if applicable): Yes, Echo with low EF Patient undergoing renal transplant or percutaneous valve procedure (select one): No NYHA Classification: Class I Frailty Score :3 [place] Protocol: Yes GFR<60 H+ P copied to chart from Danisha Spain's progress note dated 08/24/[address] Ortega. [facility] [address] [facility] [address] Dept: [phone] Dept Visit Type: Established NAME: Shannon Olson : 1955 Reason for Visit: Follow-up and Shortness of Breath Subjective HPI Shannon Olson is an 68 y.o. male, followed by Dr. Ortega, with PMH of CAD, with multiple coronary stents in all 3 vessels. Most recent LHC, 02/2023, demonstrated an occluded RCA, with patent stents to LAD and Circumflex. Labs from 06/20/2024 stable. He has been working with pulmonary and sleep medicine regarding his CPAP machine, currently he is not using it. He was seen urgently about 1 month ago, at which time, his antianginal medications were adjusted. Imdur was changed to 120 mg daily , ( not 60 mg bid), Norvasc increased to 10 mg daily, and Ranexa 1000 mg in am, 500 mg pm He is intolerant to high doses of Ranexa due to stomach issues and dizziness. He had similar issues with increasing to 1000 mg in the morning but now seems to be tolerating it okay. He presents for follow-up. He underwent an Echocardiogram today, as well as placement of his Holter monitor. Since last seen, he has had mild improvement in his angina. He still get WATTS. He has been using prophylactic sublingual nitroglycerin, and has been able to take short walks. His walks are somewhat limited secondary to needing a knee replacement. He usually has his angina in the morning, and then improves throughout the day once he has been taking his medications. He has never needed to use more than 1 sublingual nitroglycerin to relieve his angina. That he is using this frequently. He has been diligently working on weight loss, he is down about 10 pounds. He has been eating less and trying to increase his activity although this has been somewhat limited given his frequent episodes of angina. He does not appear volume overloaded. He is very compliant with his medications. Allergies Allergies Allergen Reactions Penicillins Rash Current Outpatient Medications Medication Instructions amiodarone (PACERONE) 200 mg, Oral, Daily amLODIPine (NORVASC) 5 mg, Oral, 2 times daily cholecalciferol (VITAMIN D-3) 800 Units, Daily clopidogrel (PLAVIX) 75 mg, Oral, Daily Eliquis 5 mg, Oral, 2 times daily isosorbide mononitrate ER (IMDUR) 120 mg, Oral, Daily metoprolol tartrate (LOPRESSOR) 50 mg, Oral, 2 times daily nitroglycerin (NITROSTAT) 0.4 mg, SubLINGual, Every 5 min PRN, May repeat dose every 5 minutes for up to 3 doses total. ranolazine (RANEXA) 500 mg, Oral, 2 times daily, Do not crush, chew, or split. rosuvastatin (CRESTOR) 40 mg, Oral, Daily spironolactone (ALDACTONE) 25 mg, Oral, 2 times daily torsemide (DEMADEX) 20 mg, Oral, 2 times daily Medical History Past Medical History: Diagnosis Date Angina pectoris (HCC) Anxiety Arrhythmia A-fib Asthma CAD (coronary artery disease) Cerebral artery occlusion with cerebral infarction (HCC) COPD (chronic obstructive pulmonary disease) (HCC) Depression WATTS (dyspnea on exertion) Fatigue GERD (gastroesophageal reflux disease) History of cardioversion 05/07/2016 Successful conversion of a-fib to SR History of left h (more content not included)... [facility] 09-12-2024 Note METAL TILE LATHER notified to com plete prep for proc orders. Procedure being done: [facility] Date/time of procedure: 09/14/24 11 am Procedure physician: Dr. Ortega PRE-PROCEDURE CHECKLIST Completed: H&P, CMP, CBC Date completed: H&P: 08/24/24 CMP: 09/11/24 CBC: 09/11/24 EKG: will need am of procedure PT INR (if indicated): N/A Urine HCG (if indicated): N/A Last ICD/pacer check (if indicated): N/A ORDERS DAY OF PROCEDURE [] N/A [] Urine HCG [] POC Glucose [] POC INR [x] EKG on arrival [] BMP [] CBC [facility] 09-12-2024 Telephone encounter Note METAL TILE LATHER notified to complete prep for proc orders. Procedure being done: [facility] Date/time of procedure: 09/14/24 11 am Procedure physician: Dr. Ortega PRE-PROCEDURE CHECKLIST Completed: H&P, CMP, CBC Date completed: H&P: 08/24/24 CMP: 09/11/24 CBC: 09/11/24 EKG: will need am of procedure PT INR (if indicated): N/A Urine HCG (if indicated): N/A Last ICD/pacer check (if indicated): N/A ORDERS DAY OF PROCEDURE [] N/A [] Urine HCG [] POC Glucose [] POC INR [x] EKG on arrival [] BMP [] CBC [facility] 09-12-2024 Telephone encounter Note Labs scanned in under Media T [facility] 09-12-2024 Telephone encounter Note I called and requested labs. She is faxing them over. T [facility] 09-08-2024 Note PROCEDURE: LEFT HEAR T CATH PROCEDURE DATE: 09/14/24 PROCEDURE TIME: 11 am ARRIVE AT 9:30 am Report to the Central Lounge (first floor) at the hospital entrance at [address] [place] [address]. Nothing to eat or drink after midnight prior to your procedure unless otherwise instructed by your doctor. You may take your morning medications as directed by physician with a sip of water unless specified below. Bring a complete list of all of your medications and dosages. DO NOT TAKE Xeralto, Eliquis, and Pradaxa for 2 days. Plavix (clopidogrel) 75 mg continue to take as usual, including the morning of the procedure. Aspirin 81 mg on the day of procedure. DO NOT TAKE your diuretic (water pill) spironolactone or torsemide on the morning of procedure. Please make arrangements for a tank driver after the procedure. You will not be able to drive for 24 to 72 hours. Possibility for overnight stay - if on CPAP, please bring machine with you. If you have any questions regarding your medications, please call your doctor's office. All patients will be called the afternoon prior to the procedure with specific instructions if there should be any changes. If you do not receive a call by 4:30 pm, please call the Prep and Recovery area at [phone]. The schedule is not finalized until the afternoon, so please avoid calling before 4:30 pm. [facility] 09-08-2024 Telephone encounter Note Images from the original note were not included. PROCEDURE: LEFT HEART CATH PROCEDURE DATE: 09/14/24 PROCEDURE TIME: 11 am ARRIVE AT 9:30 am [facility] at the hospital entrance at [address] [place] [address]. Nothing to eat or drink after midnight prior to your procedure unless otherwise instructed by your doctor. You may take your morning medications as directed by physician with a sip of water unless specified below. Bring a complete list of all of your medications and dosages. DO NOT TAKE Xeralto, Eliquis, and Pradaxa for 2 days. Plavix (clopidogrel) 75 mg continue to take as usual, including the morning of the procedure. Aspirin 81 mg on the day of procedure. DO NOT TAKE your diuretic (water pill) spironolactone or torsemide on the morning of procedure. Please make arrangements for a tank driver after the procedure. You will not be able to drive for 24 to 72 hours. Possibility for overnight stay - if on CPAP, please bring machine with you. If you have any questions regarding your medications, please call your doctor's office. All patients will be called the afternoon prior to the procedure with specific instructions if there should be any changes. If you do not receive a call by 4:30 pm, please call the Prep and Recovery area at [phone]. The schedule is not finalized until the afternoon, so please avoid calling before 4:30 pm. [facility] 09-08-2024 Miscellaneous Notes Images from the original note were not included. PROCEDURE: LEFT HEART CATH PROCEDURE DATE: 09/14/24 PROCEDURE TIME: 11 am ARRIVE AT 9:30 am Report to the Central Lounge (first floor) at the hospital entrance at [address] [place] [address]. Nothing to eat or drink after midnight prior to your procedure unless otherwise instructed by your doctor. You may take your morning medications as directed by physician with a sip of water unless specified below. Bring a complete list of all of your medications and dosages. DO NOT TAKE Xeralto, Eliquis, and Pradaxa for 2 days. Plavix (clopidogrel) 75 mg continue to take as usual, including the morning of the procedure. Aspirin 81 mg on the day of procedure. DO NOT TAKE your diuretic (water pill) spironolactone or torsemide on the morning of procedure. Please make arrangements for a tank driver after the procedure. You will not be able to drive for 24 to 72 hours. Possibility for overnight stay - if on CPAP, please bring machine with you. If you have any questions regarding your medications, please call your doctor's office. All patients will be called the afternoon prior to the procedure with specific instructions if there should be any changes. If you do not receive a call by 4:30 pm, please call the Prep and Recovery area at [phone]. The schedule is not finalized until the afternoon, so please avoid calling before 4:30 pm. Dx: Procedure: LHC Date/Time: 09/14/2024 at 11:00a Surgeon: BARBIE Location: [facility] Admission: OP Anesthesia: N/A No auth req per Medicare. On PB calendar and requested on Snapboard. Phone to patient, Dr. Ortega has reviewed his ECHO, reduce EF as compared to previous. He call the office with increased Episodes of angina. Taking more SL NTG than usual. Have max out his anti-angina medications. Holter monitor without atrial fibrillation. Low burden of PAC's and PVC's. Will need to fax order for labs to [facility]. Will add on for 09/14/2024 at 11 am., He will need an EKG the day of, has a recent OV from 08/24/2024. Notified patient of date and time. documented in this encounter [facility] 09-07-2024 Note Dx: Procedure: [facility] Date/Time: 09/14/2024 at 11:00a Surgeon: PB Location: [facility] Admission: OP Anesthesia: N/A No auth req per Medicare. On PB calendar and requested on Snapboard. [facility] 09-07-2024 Telephone encounter Note Dx: Procedure: [facility] Date/Time: 09/14/2024 at 11:00a Surgeon: PB Location: [facility] Admission: OP Anesthesia: N/A No auth req per Medicare. On PB calendar and requested on Snapboard. [facility] 09-07-2024 Miscellaneous Notes Dx: Procedure: [facility] Date/Time: 09/14/2024 at 11:00a Surgeon: PB Location: [facility] Admission: OP Anesthesia: N/A No auth req per Medicare. On PB calendar and requested on Snapboard. Phone to patient, Dr. Ortega has reviewed his ECHO, reduce EF as compared to previous. He call the office with increased Episodes of angina. Taking more SL NTG than usual. Have max out his anti-angina medications. Holter monitor without atrial fibrillation. Low burden of PAC's and PVC's. Will need to fax order for labs to [facility]. Will add on for 09/14/2024 at 11 am., He will need an EKG the day of, has a recent OV from 08/24/2024. Notified patient of date and time. documented in this encounter [facility] 09-07-2024 Telephone encounter Note See order for [facility] on 09/14/2024. [facility] 09-07-2024 Miscellaneous Notes See order for [facility] on 09/14/2024. Addended by: DANISHA SPAIN on: 08/30/2024 11:32 AM Modules accepted: Orders Return phone call to Patient, Kirti renewed, he had questions regarding his Echocardiogram , RVE- JET , he was able to get an appt with sleep medicine tomorrow. Again, today he is feeling good without angina. New LVD , on Echocardiogram, No evidenced of volume overload at recent OV. On going issue has been angina, which is now improving with recent medication changes. Dr. Ortega out of office, until next week, will discuss results with him when he returns. Pt requesting Imdur 60 mg to [facility] pharmacy and has more questions Phone call to patient. Yesterday, he went down to his [employer] [place], and did some work outdoors. He felt really good with no angina or SOB. He did increase the lopressor to 50 mg bid. He still does not have a new CPAP machine, but has been calling about. Reviewed the results of the Echocardiogram, now with reduced EF ~ 38%, and and RVE. , JET. I will review with Dr. Ortega. documented in this encounter [facility] 09-07-2024 Telephone encounter Note Phone to patient, Dr. Ortega has reviewed his ECHO, reduce EF as compared to previous. He call the office with increased Episodes of angina. Taking more SL NTG than usual. Have max out his anti-angina medications. Holter monitor without atrial fibrillation. Low burden of PAC's and PVC's. Will need to fax order for labs to [facility]. Will add on for 09/14/2024 at 11 am., He will need an EKG the day of, has a recent OV from 08/24/2024. Notified patient of date and time. [facility] 08-30-2024 Note Addended by: DANISHA SPAIN on: 08/30/2024 11:32 AM Modules accepted: Orders [facility] 08-30-2024 Note Addended by: DANISHA SPAIN on: 08/30/2024 11:32 AM Modules accepted: Orders [facility] 08-30-2024 Note Addended by: DANISHA SPAIN on: 08/30/2024 11:32 AM Modules accepted: Orders [facility] 08-30-2024 Note Addended by: DANISHA SPAIN on: 08/30/2024 11:32 AM Modules accepted: Orders [facility] 08-30-2024 Miscellaneous Notes Addended by: DANISHA SPAIN on: 08/30/2024 11:32 AM Modules accepted: Orders Return phone call to Patient, Imdur renewed, he had questions regarding his Echocardiogram , RVE- JET , he was able to get an appt with sleep medicine tomorrow. Again, today he is feeling good without angina. New LVD , on Echocardiogram, No evidenced of volume overload at recent OV. On going issue has been angina, which is now improving with recent medication changes. Dr. Ortega out of office, until next week, will discuss results with him when he returns. Pt requesting Imdur 60 mg to [facility] pharmacy and has more questions Phone call to patient. 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 He felt really good with no angina or SOB. He did increase the lopressor to 50 mg bid. He still does not have a new CPAP machine, but has been calling about. Reviewed the results of the Echocardiogram, now with reduced EF ~ 38%, and and RVE. , JET. I will review with Dr. Ortega. documented in this encounter [facility] 08-30-2024 Telephone encounter Note Return phone call to Patient, Imdur renewed, he had questions regarding his Echocardiogram , RVE- JET , he was able to get an appt with sleep medicine tomorrow. Again, today he is feeling good without angina. New LVD , on Echocardiogram, No evidenced of volume overload at recent OV. On going issue has been angina, which is now improving with recent medication changes. Dr. Ortega out of office, until next week, will discuss results with him when he returns. [facility] 08-30-2024 Telephone encounter Note Pt requesting Imdur 60 mg to [facility] and has more questions [facility] 08-29-2024 Telephone encounter Note Phone call to patient. 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 He felt really good with no angina or SOB. He did increase the lopressor to 50 mg bid. He still does not have a new CPAP machine, but has been calling about. Reviewed the results of the Echocardiogram, now with reduced EF ~ 38%, and and RVE. , JET. I will review with Dr. Ortega. [facility] 08-29-2024 Miscellaneous Notes Phone call to patient. Yesterday, he went down to his [employer] [place], and did some work outdoors. He felt really good with no angina or SOB. He did increase the lopressor to 50 mg bid. He still does not have a new CPAP machine, but has been calling about. Reviewed the results of the Echocardiogram, now with reduced EF ~ 38%, and and RVE. , JET. I will review with Dr. Ortega. documented in this encounter [facility] 08-24-2024 History of Presen t illness Narrative Images from the original note were not included. [facility] [address] [facility] [address] Dept: [phone] Dept Visit Type: Established NAME: Shannon Olson : 1955 Reason for Visit: Follow-up and Shortness of Breath Subjective HPI Shannon Olson is an 68 y.o. male, followed by Dr. Ortega, with PMH of CAD, with multiple coronary stents in all 3 vessels. Most recent LHC, 02/2023, demonstrated an occluded RCA, with patent stents to LAD and Circumflex. Labs from 06/20/2024 stable. He has been working with pulmonary and sleep medicine regarding his CPAP machine, currently he is not using it. He was seen urgently about 1 month ago, at which time, his antianginal medications were adjusted. Imdur was changed to 120 mg daily , ( not 60 mg bid), Norvasc increased to 10 mg daily, and Ranexa 1000 mg in am, 500 mg pm He is intolerant to high doses of Ranexa due to stomach issues and dizziness. He had similar issues with increasing to 1000 mg in the morning but now seems to be tolerating it okay. He presents for follow-up. He underwent an Echocardiogram today, as well as placement of his Holter monitor. Since last seen, he has had mild improvement in his angina. He still get WATTS. He has been using prophylactic sublingual nitroglycerin, and has been able to take short walks. His walks are somewhat limited secondary to needing a knee replacement. He usually has his angina in the morning, and then improves throughout the day once he has been taking his medications. He has never needed to use more than 1 sublingual nitroglycerin to relieve his angina. That he is using this frequently. He has been diligently working on weight loss, he is down about 10 pounds. He has been eating less and trying to increase his activity although this has been somewhat limited given his frequent episodes of angina. He does not appear volume overloaded. He is very compliant with his medications. Allergies Allergen Reactions Penicillins Rash Current Outpatient Medications Medication Instructions amiodarone (PACERONE) 200 mg, Oral, Daily amLODIPine (NORVASC) 5 mg, Oral, 2 times daily cholecalciferol (VITAMIN D-3) 800 Units, Daily clopidogrel (PLAVIX) 75 mg, Oral, Daily Eliquis 5 mg, Oral, 2 times daily isosorbide mononitrate ER (IMDUR) 120 mg, Oral, Daily metoprolol tartrate (LOPRESSOR) 50 mg, Oral, 2 times daily nitroglycerin (NITROSTAT) 0.4 mg, SubLINGual, Every 5 min PRN, May repeat dose every 5 minutes for up to 3 doses total. ranolazine (RANEXA) 500 mg, Oral, 2 times daily, Do not crush, chew, or split. rosuvastatin (CRESTOR) 40 mg, Oral, Daily spironolactone (ALDACTONE) 25 mg, Oral, 2 times daily torsemide (DEMADEX) 20 mg, Oral, 2 times daily Past Medical History: Diagnosis Date Angina pectoris ([facility]) Anxiety Arrhythmia A-fib Asthma CAD (coronary artery disease) Cerebral artery occlusion with cerebral infarction ([facility]) COPD (chronic obstructive pulmonary disease) ([facility]) Depression WATTS (dyspnea on exertion) Fatigue GERD (gastroesophageal reflux disease) History of cardioversion 05/07/2016 Successful conversion of a-fib to SR History of left heart catheterization 05/07/2016 60% stenosis right posterior descending, patent stents in prox, mid & distal RCA, patent stents in med LCx. Findings unchanged from previous study. 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 NSTEMI (non-ST elevated myocardial infarction) ([facility]) 12/2012 NSTEMI (non-ST elevated myocardial infarction) ([facility]) 05/2014 Obesity Old PA (myocardial infarction) HIPOLITO (obstructive sleep apnea) HIPOLITO on CPAP PAF (paroxysmal atrial fibrillation) ([facility]) Rheumatoid arthritis(714.0) ([facility]) ST segment elevation myocardial infarction (STEMI) of anterolateral wall, subsequent episode of care ([facility]) TIA (transient ischemic attack) Social History Tobacco Use Smoking status: Never Smokeless tobacco: Never Substance Use Topics Alcohol use: Not Currently Past Surgical History: Procedure Laterality Date CAPSULOTOMY, HAND 05/07/2016 CARDIAC CATHETERIZATION N/A 03/01/2023 Performed by Zoie Gonzales MD at [facility] Cardiac Cath/EP Lab CARDIAC PROCEDURE Left 05/2015 CARDIAC PROCEDURE Left 06/03/2017 CARDIAC PROCEDURE Bilateral 01/2010 CARDIAC PROCEDURE Left 09/05/2019 PCI to distal RCA and PL branch CHOLECYSTECTOMY 10/30/2019 CORONARY ANGIOPLASTY WITH STENT PLACEMENT Left 11/2006 restent RCA, PHU to CX CORONARY ANGIOPLASTY WITH STENT PLACEMENT Left 05/2014 PTCA /cuttung balloon to instent restenosis RCA CORONARY ANGIOPLASTY WITH STENT PLACEMENT Left 10/2006 DESto prox Rt PAV, mid & dist RCA CORONARY ANGIOPLASTY WITH STENT PLACEMENT Left 11/2014 PHU to RCA CORONARY ANGIOPLASTY WITH STENT PLACEMENT Left 10/2007 PHU to Prox Rt PAV, mid-dist RCA CORONARY ANGIOPLASTY WITH STENT PLACEMENT Left 03/2009 PHU to mid RCA CORONARY ANGIOPLASTY WITH STENT PLACEMENT Left 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 RCA CORONARY ANGIOPLASTY WITH STENT PLACEMENT Left 10/2013 PHU to prox & mid RCA CORONARY ANGIOPLASTY WITH STENT PLACEMENT Left 12/2007 PHU to LAD CORONARY ANGIOPLASTY WITH STENT PLACEMENT Bilateral 03/17/2021 Phu to the Mid RCA, and the Distal RCA CORONARY ANGIOPLASTY WITH STENT PLACEMENT Left 12/2012 PHU to mid RCA & prox-mid Rt GRACE JOINT REPLACEMENT 03/2019 TOTAL HIP ARTHROPLASTY Left 12/2012 Family History Problem Relation Name Age of Onset Diabetes Paternal Grandmother Diabetes Maternal Grandfather Cancer Sister Hypertension Mother Diabetes Sister Diabetes Paternal Grandfather Heart disease Paternal Grandmother Heart disease Paternal Grandfather Cancer Father Diabetes Brother Objective Vitals: 08/24/24 1456 BP: 126/70 BP Location: Left arm Patient Position: Sitting BP Cuff Size: Adult Pulse: 68 Weight: (!) 304 lb (138 kg) Height: 6' 2 (1.88 m) Physical Exam Constitutional: NAD Psychiatric: Alert. Medical insight fair Neck: No JVD Respiratory: Lungs are clear Heart: Regular ; Nl S1 and S2, no murmur, no rub, gallop Abdomen: NABS; soft, non-tender, non-distended Extremities: no LE edema Skin: Warm to touch and well perfused Data Reviewed and Summarized Lab Results Component Value Date WBC 7.2 06/20/2024 HGB 13.6 06/20/2024 HCT 43.0 06/20/2024 MCV 91.9 06/20/2024 PLT 244 06/20/2024 Lab Results Component Value Date GLUCOSE 136 (A) 06/20/2024 CALCIUM 9.9 06/20/2024 NA 140 06/20/2024 K 3.9 06/20/2024 CO2 26 06/20/2024 CL 107 06/20/2024 BUN 21 06/20/2024 CREATININE 1.65 (A) 01/11/2024 Lab Results Component Value Date CHLPL 144 08/05/2021 CHLPL 155 06/07/2019 CHOL 135 02/19/2023 CHOL 251 (H) 12/07/2022 Lab Results Component Value Date TRIG 190 (A) 02/19/2023 TRIG 227 (H) 12/07/2022 TRIG 132 08/05/2021 Lab Results Component Value Date HDL 47 02/19/2023 HDL 37 (L) 12/07/2022 HDL 49 08/05/2021 Lab Results Component Value Date LDLCALC 50 02/19/2023 CARDIAC TESTING REVIEWED: EKG in Office: 07/06/2024 Sinus Rhythm -occasional ectopic ventricular beat -Left bundle branch block. ABNORMAL ECHOCARDIOGRAM: 08/24/24 TRANSTHORACIC ECHOCARDIOGRAM (TTE) COMPLETE (CONTRAST/BUBBLE/3D PRN) 08/24/2024 3:44 PM (Final) Interpretation Summary Left Ventricle: Left ventricle is mildly dilated. LVIDd is 6.6 cm. Increased wall thickness. Septal thickening. IVSd is 1.5 cm. Moderately reduced left ventricular systolic function. EF by 2D Simpsons Biplane is 38%. Right Ventricle: Right ventricle is dilated. Normal systolic function. Echocardiographic features suggestive of a prominent moderator band. Right Atrium: Right atrium is mildly dilated. Aorta: Normal sized sinuses of Valsalva. Dilated ascending aorta. Ao ascending diameter is 4.7 cm. 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 CAD in [place] artery (Primary),with preserved EF 55% ( per Echo 10/2022) , now with daily angina: -He feels like his angina is better, but it does occur daily and is not where he would like to be. -He is not able to tolerate at 1000 mg of Ranexa twice a day secondary to stomach issues and dizziness. -He will continue his current dose of Ranexa 1000 mg in the morning, and 500 in the evening.; Imdur 120 mg daily. Amlodipine 5 mg twice a day, this has not caused him much peripheral edema, and I will increase his metoprolol to 50 mg twice a day. He will call me if his BP less than 100 systolic or dizziness. We will attempt to treat his angina medically if is unsuccessful he will likely require a left heart catheterization. -He will continue Plavix as his single antiplatelet agent. -He will continue prophylatic use of SL NTG -I reviewed the results of his echocardiogram with him once I have these results. 2. PAF (paroxysmal atrial fibrillation) (HCC) - - Continue Amiodarone 200- mg daily, Eliquis 5 mg bid - secondary to palpitations and concerns for PAF, will get 7 day holter monitor. 3. Obesity (BMI 30-39.9) -At his follow-up visit, if his weight is stable we will see if he will qualify for a GLP-1 and agonists. - Written information given 1500 patricia./1800 patricia diet. 4. Essential hypertension - well controlled - Continue Norvasc 5 mg twice a day, this is more for angina and then blood pressure, - increase Lopressor to 50 mg twice a day, Discussed nonpharmacological ways of lowering her blood pressure including low-sodium diet, weight loss and exercise. 5. Mixed hyperlipidemia - LDL = 50 from 2022 - Continue low fat, low chol diet - Continue Crestor 40 mg daily 6 HFpEF: -Euvolemic today - Continue aldactone 25 mg daily and Torsemide 20 mg twice a day -Recent labs from May demonstrate stable renal function. -Repeat echocardiogram. 7. HIPOLITO: - Seeing pulmonary, working on getting CPAP machine. - Consider [employer] Addendum: Echocardiogram resulted , while completing this note, now with worsening EF, JET and RVE , will discuss with Dr. Ortega. PC to patient , but no answer. Follow up in about 2 months (around 10/24/2024). [place] APRN-LABOR TRAINING MANAGER - Date of Service: 08/24/2024 Nurse Practitioner in Interventional Cardiology [facility] - Cardiology [address] [place] [address] p [phone] [email or web address] documented in this encounter [facility] 08-24-2024 Instructions DANIELLE Whitehead CNP - 08/24/2024 3:00 PM EDT Increase Lopressor to 50 mg twice day Monitor Blood pressure and heart rate, call if you get dizzy , If blood pressure below 100 systolic ( top number) call me. [phone] documented in this encounter [facility] 07-20-2024 History of Presen t illness Narrative Images from the original note were not included. [facility] [address] [place] [id number] Dept: [phone] Dept Visit Type: Established NAME: Shannon Olson : 1955 Reason for Visit: CAD / Angina Subjective HPI Shannon Olson is an 68 y.o. male, now followed by Dr. Ortega, with PMH of CAD, with multiple coronary stents in all 3 vessels. Most recent LHC, 02/2023, demonstrated an occluded RCA, with patent stents to LAD and Circumflex. Labs from 06/20/2024 stable. He was seen urgently 2 weeks ago, at which time, his antianginal medications were adjusted. Imdur was changed to 120 mg daily , ( not 60 mg bid), Norvasc increased to 10 mg daily, and Ranexa 500 mg bid. He presents for a 2 week follow-up visit, last weeks cancelled due to weather . Angina is better, but he is still using SL NTG prior to exertional activites. He lost 6 lbs since our last visit, with better eating habits .He has had minimal edema in his legs with increase dose of Norvasc. He is tolerating the Ranexa. He has updated his med list. He is no longer taking minoxidil, or Carafate. He is still waiting on his sleep apnea machine. He reports feeling 50% better, but still has some breakthrough angina even with prophylactic SL NTG. Continues to have intermittent dizziness, that has been on going for years. He also notes intermittent palpitations, and what feel like random electrical shocks in his hands and feet, at random times. These do not occur daily, but feel very strange. Echocardiogram has been scheduled for 08/10/2024. Allergies Allergen Reactions Penicillins Rash Current Outpatient Medications Medication Instructions amiodarone (PACERONE) 200 mg, Oral, Daily amLODIPine (NORVASC) 5 mg, Oral, 2 times daily cholecalciferol (VITAMIN D-3) 800 Units, Daily clopidogrel (PLAVIX) 75 mg, Oral, Daily Eliquis 5 mg, Oral, 2 times daily isosorbide mononitrate ER (IMDUR) 120 mg, Oral, Daily metoprolol tartrate (LOPRESSOR) 25 mg, Oral, 2 times daily minoxidil (LONITEN) 10 mg, Daily nitroglycerin (NITROSTAT) 0.4 mg, SubLINGual, Every 5 min PRN, May repeat dose every 5 minutes for up to 3 doses total. ranolazine (RANEXA) 500 mg, Oral, 2 times daily, Do not crush, chew, or split. rosuvastatin (CRESTOR) 40 mg, Oral, Daily spironolactone (ALDACTONE) 25 mg, Oral, 2 times daily sucralfate (CARAFATE) 1 g, 4 times daily before meals & nightly torsemide (Demadex) 20 MG tablet TAKE ONE TABLET BY MOUTH DAILY - Take1 additional tablet if weight gain more than 2 pounds in 1 day Past Medical History: Diagnosis Date Angina pectoris [...] management advised HTN (hypertension) Hyperlipidemia Hypertension Hypokalemia [facility] current use of antiarrhythmic drug [facility] current use of anticoagulant NSTEMI (non-ST elevated myocardial infarction) ([facility]) ([facility]) 12/2012 NSTEMI (non-ST elevated myocardial infarction) ([facility]) ([facility]) 05/2014 Obesity Old PA (myocardial infarction) HIPOLITO (obstructive sleep apnea) HIPOLITO on CPAP PAF (paroxysmal atrial fibrillation) ([facility]) Rheumatoid arthritis(714.0) ([facility]) ST segment elevation myocardial infarction (STEMI) of anterolateral wall, subsequent episode of care ([facility]) ([facility]) TIA (transient ischemic attack) Social History Tobacco Use Smoking status: Never Smokeless tobacco: Never Substance Use Topics Alcohol use: Not Currently Past Surgical History: Procedure Laterality Date CAPSULOTOMY, HAND 05/07/2016 CARDIAC CATHETERIZATION N/A 03/01/2023 Performed by Zoie Gonzales MD at [facility] Cardiac Cath/EP Lab CARDIAC PROCEDURE Left 05/2015 CARDIAC PROCEDURE Left 06/03/2017 CARDIAC PROCEDURE Bilateral 01/2010 CARDIAC PROCEDURE Left 09/05/2019 PCI to distal RCA and PL branch CHOLECYSTECTOMY 10/30/2019 CORONARY ANGIOPLASTY WITH STENT PLACEMENT Left 11/2006 restent RCA, PHU to CX CORONARY ANGIOPLASTY WITH STENT PLACEMENT Left 05/2014 PTCA /cuttung balloon to instent restenosis RCA CORONARY ANGIOPLASTY WITH STENT PLACEMENT Left 10/2006 DESto prox Rt PAV, mid & dist RCA CORONARY ANGIOPLASTY WITH STENT PLACEMENT Left 11/2014 PHU to RCA CORONARY ANGIOPLASTY WITH STENT PLACEMENT Left 10/2007 PHU to Prox Rt PAV, mid-dist RCA CORONARY ANGIOPLASTY WITH STENT PLACEMENT Left 03/2009 PHU to mid RCA CORONARY ANGIOPLASTY WITH STENT PLACEMENT Left 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 RCA CORONARY ANGIOPLASTY WITH STENT PLACEMENT Left 10/2013 PHU to prox & mid RCA CORONARY ANGIOPLASTY WITH STENT PLACEMENT Left 12/2007 PHU to LAD CORONARY ANGIOPLASTY WITH STENT PLACEMENT Bilateral 03/17/2021 Phu to the Mid RCA, and the Distal RCA CORONARY ANGIOPLASTY WITH STENT PLACEMENT Left 12/2012 PHU to mid RCA & prox-mid Rt GRACE JOINT REPLACEMENT 03/2019 TOTAL HIP ARTHROPLASTY Left 12/2012 Family History Problem Relation Name Age of Onset Diabetes Paternal Grandmother Diabetes Maternal Grandfather Cancer Sister Hypertension Mother Diabetes Sister Diabetes Paternal Grandfather Heart disease Paternal Grandmother Heart disease Paternal Grandfather Cancer Father Diabetes Brother Objective Visit Vitals BP 130/60 (BP Location: Left arm, Patient Position: Sitting, BP Cuff Size: Adult) Pulse 66 Ht 6' 2 (1.88 m) Wt (!) 305 lb 6.4 oz (139 kg) SpO2 95% BMI 39.21 kg/m Smoking Status Never BSA 2.69 m Physical Exam Constitutional: NAD Psychiatric: Alert. Medical insight fair Neck: No JVD Respiratory: Lungs are Clear Heart: Regular ; Nl S1 and S2, no murmur, norub, gallop Abdomen: NABS; soft, non-tender, non-distended Extremities: no LE edema Skin: Warm to touch and well perfused Data Reviewed and Summarized Lab Results Component Value Date WBC 7.2 06/20/2024 HGB 13.6 06/20/2024 HCT 43.0 06/20/2024 MCV 91.9 06/20/2024 PLT 244 06/20/2024 Lab Results Component Value Date GLUCOSE 136 (A) 06/20/2024 CALCIUM 9.9 06/20/2024 NA 140 06/20/2024 K 3.9 06/20/2024 CO2 26 06/20/2024 CL 107 06/20/2024 BUN 21 06/20/2024 CREATININE 1.65 (A) 01/11/2024 Lab Results Component Value Date CHLPL 144 08/05/2021 CHLPL 155 06/07/2019 CHOL 135 02/19/2023 CHOL 251 (H) 12/07/2022 Lab Results Component Value Date TRIG 190 (A) 02/19/2023 TRIG 227 (H) 12/07/2022 TRIG 132 08/05/2021 Lab Results Component Value Date HDL 47 02/19/2023 HDL 37 (L) 12/07/2022 HDL 49 08/05/2021 Lab Results Component Value Date LDLCALC 50 02/19/2023 Lab Results Component Value Date TSH 1.22 06/20/2024 CARDIAC TESTING REVIEWED: EKG in Office: NSR -60, LBBB ECHOCARDIOGRAM: 11/18/22 TRANSTHORACIC ECHOCARDIOGRAM (TTE) COMPLETE (CONTRAST/BUBBLE/3D PRN) [...] significant valvular abnormalities. Signed by: Stephan Crawley on 11/18/2022 2:15 PM HEART CATH: 03/01/23 CARDIAC PROCEDURE 03/01/2023 10:44 AM (Final) Conclusion Impression: 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 of mid RCA that was previously treated [...] for stable angina -Ranolazine will be added Signed by: Zoie Gonzales on 03/01/2023 10:44 AM Assessment /Plan . CAD in [place] artery (Primary),with preserved EF 55% ( per Echo 10/2022) , now with daily angina: -He feels like his angina is 50% better, and he is tolerating the medication changes. - Increase ranexa to 1000 mg in the am, and 500 mg in pm. If he tolerates it, can We will attempt to treat his angina medically if is unsuccessful he will likely require a left heart catheterization. -He will begin taking Imdur 120 mg daily -Norvasc will be increased to 5 mg twice a day -He will continue Plavix as his single antiplatelet agent. -He will continue prophylatic use of SL NTG - Check Echo on 08/10/2024 2. PAF (paroxysmal atrial fibrillation) (HCC) - - Continue Amiodarone 200- mg daily, Eliquis 5 mg bid - secondary to palpitations and concerns for PAF, will get 7 day holter monitor. 3. Obesity (BMI 30-39.9) -At his follow-up visit, if his weight is stable we will see if he will qualify for a GLP-1 and agonists. - Written information given 1500 patricia./1800 patricia diet. 4. Essential hypertension - well controlled - Continue Norvasc 5 mg twice a day, this is more for angina and then blood pressure, Lopressor 25 mg twice a day, Discussed nonpharmacological ways of lowering her blood pressure including low-sodium diet, weight loss and exercise. 5. Mixed hyperlipidemia - LDL = 50 from 2022 - Continue low fat, low chol diet - Continue Crestor 40 mg daily 6 HFpEF: -Euvolemic today - Continue aldactone 25 mg daily and Torsemide 20 mg twice a day -Recent labs from May demonstrate stable renal function. -Repeat echocardiogram. F/U 3 weeks. [place] GONZALEZ - Date of Service: 07/06/2024 Nurse Practitioner in Interventional Cardiology [facility] - Cardiology There are no diagnoses linked to this encounter. No follow-ups on file. [place] GONZALEZ - Date of Service: 07/13/2024 Nurse Practitioner in Interventional Cardiology [facility] [place] [address] p [phone] [email or web address] documented in this encounter [facility] 07-20-2024 Instructions DANIELLE Whitehead CNP - 07/20/2024 2:00 PM EST Increase Ranexa to 1000 mg in the am, and 500 mg in the evening. documented in this encounter [facility] 07-13-2024 Telephone encounter Note Patient cancelled his appt today, due to bad weather. He is feeling a little better. Has used SL NTG a few times. He is R/S for next week. [facility] 07-13-2024 Miscellaneous Notes Patient cancelled his appt today, due to bad weather. He is feeling a little better. Has used SL NTG a few times. He is R/S for next week. Name of Caller: Shannon Contact Reason for Appointment: Cancel and R/S 07/13/2024 at 130pm due to weather Office Name: [facility] Medication Refills need, if any: no Medication Name: no documented in this encounter [facility] 07-13-2024 Telephone encounter Note Name of Caller: Shannon Contact Reason for Appointment: Cancel and R/S 07/13/2024 at 130pm due to weather Office Name: [facility] Medication Refills need, if any: no Medication Name: no [facility] 07-06-2024 History of Presen t illness Narrative Images from the original note were not included. [facility] MEDICAL [facility] [address] [facility] [id number] Dept: [phone] Dept Visit Type: Established NAME: Shannon Olson : 1955 Reason for Visit: Follow-up, Chest Pain, and Dizziness Subjective HPI Shannon Olson is an 68 y.o. male, now followed by Dr. Ortega, with PMH of CAD, with multiple coronary stents in all 3 vessels. Most recent C, 02/2023, demonstrated an occluded RCA, with patent stents to LAD and Circumflex. Labs from 06/20/2024 stable. He contacted the office today with complaints of escalating angina. He has stopped his IMDUR and ranexa?? He reports daily angina since the cold weather. He has been taking Imdur 60 mg twice a day . He did stop the Ranexa after he saw Dr. Ortega. He did not stop the Imdur. He is not sure if he is on Carafate anymore. This a.m. he had an episode of angina that nearly prompted him to call 911. However he took 1 sublingual nitroglycerin with relief. This is the first time he took a sublingual nitroglycerin tablet. He is not sure how he is taking his medicines or which ones he took this morning, but he does take all of them. He is now retired. He does get some of his medications through the patient taurus program through our pharmacy. EKG demonstrates normal sinus rhythm with a left bundle branch block. He has an intermittent left bundle branch block on previous EKG' s as well. He has been working with pulmonary and sleep medicine regarding his CPAP machine, currently he is not using it. He states he was never seen in weight management nor have they contacted him. He is interested in trying a GLP-1 agonist in this for weight loss assistance. Allergies Allergen Reactions Penicillins Rash Current Outpatient Medications Medication Instructions amiodarone (PACERONE) 200 mg, Oral, Daily amLODIPine (NORVASC) 5 mg, Oral, 2 times daily cholecalciferol (VITAMIN D-3) 800 Units, Daily clopidogrel (PLAVIX) 75 mg, Oral, Daily Eliquis 5 mg, Oral, 2 times daily isosorbide mononitrate ER (IMDUR) 120 mg, Oral, Daily metoprolol tartrate (LOPRESSOR) 25 mg, Oral, 2 times daily minoxidil (LONITEN) 10 mg, Daily nitroglycerin (NITROSTAT) 0.4 mg, SubLINGual, Every 5 min PRN, May repeat dose every 5 minutes for up to 3 doses total. ranolazine (RANEXA) 500 mg, Oral, 2 times daily, Do not crush, chew, or split. 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) ([facility]) 12/2012 NSTEMI (non-ST elevated myocardial infarction) ([facility]) ([facility]) 05/2014 Obesity Old [place] (myocardial infarction) HIPOLITO (obstructive sleep apnea) HIPOLITO on CPAP PAF (paroxysmal atrial fibrillation) ([facility]) Rheumatoid arthritis(714.0) ([facility]) ST segment elevation myocardial infarction (STEMI) of anterolateral wall, subsequent episode of care ([facility]) ([facility]) TIA (transient ischemic attack) Social History Tobacco Use Smoking status: Never Smokeless tobacco: Never Substance Use Topics Alcohol use: Not Currently Past Surgical History: Procedure Laterality Date CAPSULOTOMY, HAND 05/07/2016 CARDIAC CATHETERIZATION N/A 03/01/2023 Performed by Zoie Gonzales MD at [facility] Cardiac Cath/EP Lab CARDIAC PROCEDURE Left 05/2015 CARDIAC PROCEDURE Left 06/03/2017 CARDIAC PROCEDURE Bilateral 01/2010 CARDIAC PROCEDURE Left 09/05/2019 PCI to distal RCA and PL branch CHOLECYSTECTOMY 10/30/2019 CORONARY ANGIOPLASTY WITH STENT PLACEMENT Left 11/2006 restent RCA, PHU to CX CORONARY ANGIOPLASTY WITH STENT PLACEMENT Left 05/2014 PTCA /cuttung balloon to instent restenosis RCA CORONARY ANGIOPLASTY WITH STENT PLACEMENT Left 10/2006 DESto prox Rt PAV, mid & dist RCA CORONARY ANGIOPLASTY WITH STENT PLACEMENT Left 11/2014 PHU to RCA CORONARY ANGIOPLASTY WITH STENT PLACEMENT Left 10/2007 PHU to Prox Rt PAV, mid-dist RCA CORONARY ANGIOPLASTY WITH STENT PLACEMENT Left 03/2009 PHU to mid RCA CORONARY ANGIOPLASTY WITH STENT PLACEMENT Left 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 RCA CORONARY ANGIOPLASTY WITH STENT PLACEMENT Left 10/2013 PHU to prox & mid RCA CORONARY ANGIOPLASTY WITH STENT PLACEMENT Left 12/2007 PHU to LAD CORONARY ANGIOPLASTY WITH STENT PLACEMENT Bilateral 03/17/2021 Phu to the Mid RCA, and the Distal RCA CORONARY ANGIOPLASTY WITH STENT PLACEMENT Left 12/2012 HPU to mid RCA & prox-mid Rt GRACE JOINT REPLACEMENT 03/2019 TOTAL HIP ARTHROPLASTY Left 12/2012 Family History Problem Relation Name Age of Onset Diabetes Paternal Grandmother Diabetes Maternal Grandfather Cancer Sister Hypertension Mother Diabetes Sister Diabetes Paternal Grandfather Heart disease Paternal Grandmother Heart disease Paternal Grandfather Cancer Father Diabetes Brother Objective Vitals: 07/06/24 1406 BP: 138/82 BP Location: Left arm Patient Position: Sitting BP Cuff Size: Adult Pulse: 68 Weight: (!) 311 lb (141 kg) Height: 6' 2 (1.88 m) Physical Exam Constitutional: NAD Psychiatric: Alert. Medical insight Fair Neck: No JVD, no Bruits Respiratory: Lungs are clearv Heart: Regular ; Nl S1 and S2, no murmur, no rub, gallop Abdomen: NABS; soft, non-tender, non-distended Extremities: no LE edema Skin: Warm to touch and well perfused Data Reviewed and Summarized Lab Results Component Value Date WBC 7.2 06/20/2024 HGB 13.6 06/20/2024 HCT 43.0 06/20/2024 MCV 91.9 06/20/2024 PLT 244 06/20/2024 Lab Results Component Value Date GLUCOSE 136 (A) 06/20/2024 CALCIUM 9.9 06/20/2024 NA 140 06/20/2024 K 3.9 06/20/2024 CO2 26 06/20/2024 CL 107 06/20/2024 BUN 21 06/20/2024 CREATININE 1.65 (A) 01/11/2024 Lab Results Component Value Date CHLPL 144 08/05/2021 CHLPL 155 06/07/2019 CHOL 135 02/19/2023 CHOL 251 (H) 12/07/2022 Lab Results Component Value Date TRIG 190 (A) 02/19/2023 TRIG 227 (H) 12/07/2022 TRIG 132 08/05/2021 Lab Results Component Value Date HDL 47 02/19/2023 HDL 37 (L) 12/07/2022 HDL 49 08/05/2021 Lab Results Component Value Date LDLCALC 50 02/19/2023 Lab Results Component Value Date TSH 1.22 06/20/2024 Lab Results Component Value Date ALT 37 06/20/2024 AST 18 06/20/2024 ALKPHOS 105 06/20/2024 BILITOT 1.1 06/20/2024 Ref Range & Units 2 wk ago (06/20/24) 5 mo ago (01/11/24) 1 yr ago (04/09/23) 1 yr ago (02/19/23) 1 yr ago (01/29/23) 1 yr ago (12/30/22) 1 yr ago (12/08/22) SODIUM 136 - 145 mmol/L 140 141 R 142 P, R 142 R 140 R 138 R 134 Low R POTASSIUM 3.5 - 5.1 mmol/L 3.9 3.7 4.1 P 3.9 4.4 4.9 R 4.5 CHLORIDE 98 - 107 mmol/L 107 109 Abnormal 112 Abnormal P 111 Abnormal 109 Abnormal 106 R 106 CARBON DIOXIDE 23 - 31 mmol/L 26 28 R 28 P, R 27 R 26 R 23 R 19 Low R ANION GAP 3 - 13 mmol/L 7 4 2.00 Abnormal P, R 4 5.00 R 8 UREA NITROGEN 9 - 23 mg/dL 21 26 Abnormal R 18 R 42 Abnormal R 30 High R 38 High R CREATININE, SERUM, MANUAL FOR CLEARANCE 1.28 GLUCOSE 82 - 115 mg/dL 136 Abnormal 105 Abnormal R 116 P, R 153 Abnormal R 135 R 111 High R, CM 129 High R CALCIUM 8.8 - 10.0 mg/dL 9.9 9.1 R 8.5 P, R 8.6 R 9.0 R 9.5 R 8.5 R AST (SGOT) <=34 U/L 18 18 R ALT <=40 U/L 37 34 R ALKALINE PHOSPHATASE 40 - 150 U/L 105 95 R ALBUMIN 3.4 - 4.8 g/dL 3.6 3.6 R BILIRUBIN, TOTAL <=1.2 mg/dL 1.1 0.9 R TOTAL PROTEIN 6.4 - 8.3 g/dL 7.6 7.3 R GFR NON 59 50 P Resulting Agency [facility] C[facility]IAC TESTING REVIEWED: EKG in Office: NSR with LBBB ECHOCARDIOGRAM: 11/18/22 TRANSTHORACIC ECHOCARDIOGRAM (TTE) COMPLETE (CONTRAST/BUBBLE/3D PRN) [...] significant valvular abnormalities. 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 CAD in [place] artery (Primary),with preserved EF 55% ( per Echo 10/2022) , now with daily angina: -Since the weather has turned colder, he has noted daily episodes of angina. These also can occur postprandial. Today is the first day he took sublingual nitroglycerin. I reviewed his case in detail with Dr. Ortega. We will attempt to treat his angina medically if is unsuccessful he will likely require a left heart catheterization. -He will begin taking Imdur 120 mg daily in the morning not twice a day. -Norvasc will be increased to 5 mg twice a day -He will resume Ranexa 500 mg daily. He seems to think he stopped this secondary to dizziness with he still suffers from even being off it. -He will continue Plavix as his single antiplatelet agent. -He was instructed to use sublingual nitroglycerin prior to taking his dog out in the cold weather, and also when doing exertional activities. 2. PAF (paroxysmal atrial fibrillation) (HCC) - EKG today is SR with LBBB - Continue Amiodarone 200- mg daily, Eliquis 5 mg bid -Continue apixaban 5 mg twice daily 3. Obesity (BMI 30-39.9) -At his follow-up visit, if his weight is stable we will see if he will qualify for a GLP-1 and agonists. 4. Essential hypertension - well controlled - Continue Norvasc 5 mg twice a day, this is more for angina and then blood pressure control, minoxidil 10 mg daily, Lopressor 25 mg twice a day, Discussed nonpharmacological ways of lowering her blood pressure including low-sodium diet, weight loss and exercise. 5. Mixed hyperlipidemia - LDL = 50 from 2022 - Continue low fat, low chol diet - Continue Crestor 40 mg daily 6 HFpEF: -Euvolemic today - Continue aldactone 25 mg daily and Torsemide 20 mg twice a day -Recent labs from May demonstrate stable renal function. -Repeat echocardiogram. Follow up in about 1 week (around 07/13/2024) for Danisha. [place] GONZALEZ - Date of Service: 07/06/2024 Nurse Practitioner in Interventional Cardiology [facility] [place] [address] p [phone] [email or web address] documented in this encounter [facility] 07-06-2024 History of Presen t illness Narrative Images from the original note were not included. [facility] [address] [place] [id number] Dept: [phone] Dept Visit Type: Established NAME: Shannon Olson : 1955 Reason for Visit: Follow-up, Chest Pain, and Dizziness Subjective HPI Shannon Olson is an 68 y.o. male, now followed by Dr. Ortega, with PMH of CAD, with multiple coronary stents in all 3 vessels. Most recent C, 02/2023, demonstrated an occluded RCA, with patent stents to LAD and Circumflex. Labs from 06/20/2024 stable. He contacted the office today with complaints of escalating angina. He has stopped his IMDUR and ranexa?? He reports daily angina since the cold weather. He has been taking Imdur 60 mg twice a day . He did stop the Ranexa after he saw Dr. Ortega. He did not stop the Imdur. He is not sure if he is on Carafate anymore. This a.m. he had an episode of angina that nearly prompted him to call 911. However he took 1 sublingual nitroglycerin with relief. This is the first time he took a sublingual nitroglycerin tablet. He is not sure how he is taking his medicines or which ones he took this morning, but he does take all of them. He is now retired. He does get some of his medications through the patient taurus program through our pharmacy. EKG demonstrates normal sinus rhythm with a left bundle branch block. He has an intermittent left bundle branch block on previous EKG' s as well. He has been working with pulmonary and sleep medicine regarding his CPAP machine, currently he is not using it. He states he was never seen in weight management nor have they contacted him. He is interested in trying a GLP-1 agonist in this for weight loss assistance. Allergies Allergen Reactions Penicillins Rash Current Outpatient Medications Medication Instructions amiodarone (PACERONE) 200 mg, Oral, Daily amLODIPine (NORVASC) 5 mg, Oral, 2 times daily cholecalciferol (VITAMIN D-3) 800 Units, Daily clopidogrel (PLAVIX) 75 mg, Oral, Daily Eliquis 5 mg, Oral, 2 times daily isosorbide mononitrate ER (IMDUR) 120 mg, Oral, Daily metoprolol tartrate (LOPRESSOR) 25 mg, Oral, 2 times daily minoxidil (LONITEN) 10 mg, Daily nitroglycerin (NITROSTAT) 0.4 mg, SubLINGual, Every 5 min PRN, May repeat dose every 5 minutes for up to 3 doses total. ranolazine (RANEXA) 500 mg, Oral, 2 times daily, Do not crush, chew, or split. 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) ([facility]) 12/2012 NSTEMI (non-ST elevated myocardial infarction) ([facility]) ([facility]) 05/2014 Obesity Old [place] (myocardial infarction) HIPOLITO (obstructive sleep apnea) HIPOLITO on CPAP PAF (paroxysmal atrial fibrillation) ([facility]) Rheumatoid arthritis(714.0) ([facility]) ST segment elevation myocardial infarction (STEMI) of anterolateral wall, subsequent episode of care ([facility]) ([facility]) TIA (transient ischemic attack) Social History Tobacco Use Smoking status: Never Smokeless tobacco: Never Substance Use Topics Alcohol use: Not Currently Past Surgical History: Procedure Laterality Date CAPSULOTOMY, HAND 05/07/2016 CARDIAC CATHETERIZATION N/A 03/01/2023 Performed by Zoie Gonzales MD at [facility] Cardiac Cath/EP Lab CARDIAC PROCEDURE Left 05/2015 CARDIAC PROCEDURE Left 06/03/2017 CARDIAC PROCEDURE Bilateral 01/2010 CARDIAC PROCEDURE Left 09/05/2019 PCI to distal RCA and PL branch CHOLECYSTECTOMY 10/30/2019 CORONARY ANGIOPLASTY WITH STENT PLACEMENT Left 11/2006 restent RCA, PHU to CX CORONARY ANGIOPLASTY WITH STENT PLACEMENT Left 05/2014 PTCA /cuttung balloon to instent restenosis RCA CORONARY ANGIOPLASTY WITH STENT PLACEMENT Left 10/2006 DESto prox Rt PAV, mid & dist RCA CORONARY ANGIOPLASTY WITH STENT PLACEMENT Left 11/2014 PHU to RCA CORONARY ANGIOPLASTY WITH STENT PLACEMENT Left 10/2007 PHU to Prox Rt PAV, mid-dist RCA CORONARY ANGIOPLASTY WITH STENT PLACEMENT Left 03/2009 PHU to mid RCA CORONARY ANGIOPLASTY WITH STENT PLACEMENT Left 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 RCA CORONARY ANGIOPLASTY WITH STENT PLACEMENT Left 10/2013 PHU to prox & mid RCA CORONARY ANGIOPLASTY WITH STENT PLACEMENT Left 12/2007 PHU to LAD CORONARY ANGIOPLASTY WITH STENT PLACEMENT Bilateral 03/17/2021 Phu to the Mid RCA, and the Distal RCA CORONARY ANGIOPLASTY WITH STENT PLACEMENT Left 12/2012 PHU to mid RCA & prox-mid Rt GRACE JOINT REPLACEMENT 03/2019 TOTAL HIP ARTHROPLASTY Left 12/2012 Family History Problem Relation Name Age of Onset Diabetes Paternal Grandmother Diabetes Maternal Grandfather Cancer Sister Hypertension Mother Diabetes Sister Diabetes Paternal Grandfather Heart disease Paternal Grandmother Heart disease Paternal Grandfather Cancer Father Diabetes Brother Objective Vitals: 07/06/24 1406 BP: 138/82 BP Location: Left arm Patient Position: Sitting BP Cuff Size: Adult Pulse: 68 Weight: (!) 311 lb (141 kg) Height: 6' 2 (1.88 m) Physical Exam Constitutional: NAD Psychiatric: Alert. Medical insight Fair Neck: No JVD, no Bruits Respiratory: Lungs are clearv Heart: Regular ; Nl S1 and S2, no murmur, no rub, gallop Abdomen: NABS; soft, non-tender, non-distended Extremities: no LE edema Skin: Warm to touch and well perfused Data Reviewed and Summarized Lab Results Component Value Date WBC 7.2 06/20/2024 HGB 13.6 06/20/2024 HCT 43.0 06/20/2024 MCV 91.9 06/20/2024 PLT 244 06/20/2024 Lab Results Component Value Date GLUCOSE 136 (A) 06/20/2024 CALCIUM 9.9 06/20/2024 NA 140 06/20/2024 K 3.9 06/20/2024 CO2 26 06/20/2024 CL 107 06/20/2024 BUN 21 06/20/2024 CREATININE 1.65 (A) 01/11/2024 Lab Results Component Value Date CHLPL 144 08/05/2021 CHLPL 155 06/07/2019 CHOL 135 02/19/2023 CHOL 251 (H) 12/07/2022 Lab Results Component Value Date TRIG 190 (A) 02/19/2023 TRIG 227 (H) 12/07/2022 TRIG 132 08/05/2021 Lab Results Component Value Date HDL 47 02/19/2023 HDL 37 (L) 12/07/2022 HDL 49 08/05/2021 Lab Results Component Value Date LDLCALC 50 02/19/2023 Lab Results Component Value Date TSH 1.22 06/20/2024 Lab Results Component Value Date ALT 37 06/20/2024 AST 18 06/20/2024 ALKPHOS 105 06/20/2024 BILITOT 1.1 06/20/2024 Ref Range & Units 2 wk ago (06/20/24) 5 mo ago (01/11/24) 1 yr ago (04/09/23) 1 yr ago (02/19/23) 1 yr ago (01/29/23) 1 yr ago (12/30/22) 1 yr ago (12/08/22) SODIUM 136 - 145 mmol/L 140 141 R 142 P, R 142 R 140 R 138 R 134 Low R POTASSIUM 3.5 - 5.1 mmol/L 3.9 3.7 4.1 P 3.9 4.4 4.9 R 4.5 CHLORIDE 98 - 107 mmol/L 107 109 Abnormal 112 Abnormal P 111 Abnormal 109 Abnormal 106 R 106 CARBON DIOXIDE 23 - 31 mmol/L 26 28 R 28 P, R 27 R 26 R 23 R 19 Low R ANION GAP 3 - 13 mmol/L 7 4 2.00 Abnormal P, R 4 5.00 R 8 UREA NITROGEN 9 - 23 mg/dL 21 26 Abnormal R 18 R 42 Abnormal R 30 High R 38 High R CREATININE, SERUM, MANUAL FOR CLEARANCE 1.28 GLUCOSE 82 - 115 mg/dL 136 Abnormal 105 Abnormal R 116 P, R 153 Abnormal R 135 R 111 High R, CM 129 High R CALCIUM 8.8 - 10.0 mg/dL 9.9 9.1 R 8.5 P, R 8.6 R 9.0 R 9.5 R 8.5 R AST (SGOT) <=34 U/L 18 18 R ALT <=40 U/L 37 34 R ALKALINE PHOSPHATASE 40 - 150 U/L 105 95 R ALBUMIN 3.4 - 4.8 g/dL 3.6 3.6 R BILIRUBIN, TOTAL <=1.2 mg/dL 1.1 0.9 R TOTAL PROTEIN 6.4 - 8.3 g/dL 7.6 7.3 R GFR NON 59 50 P Resulting Agency [facility] REVIEWED: EKG in Office: NSR with LBBB ECHOCARDIOGRAM: 11/18/22 TRANSTHORACIC ECHOCARDIOGRAM (TTE) COMPLETE (CONTRAST/BUBBLE/3D PRN) [...] significant valvular abnormalities. 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 CAD in [place] artery (Primary),with preserved EF 55% ( per Echo 10/2022) , now with daily angina: -Since the weather has turned colder, he has noted daily episodes of angina. These also can occur postprandial. Today is the first day he took sublingual nitroglycerin. I reviewed his case in detail with Dr. Ortega. We will attempt to treat his angina medically if is unsuccessful he will likely require a left heart catheterization. -He will begin taking Imdur 120 mg daily in the morning not twice a day. -Norvasc will be increased to 5 mg twice a day -He will resume Ranexa 500 mg bid He seems to think he stopped this secondary to dizziness with he still suffers from even being off it. -He will continue Plavix as his single antiplatelet agent. -He was instructed to use sublingual nitroglycerin prior to taking his dog out in the cold weather, and also when doing exertional activities. 2. PAF (paroxysmal atrial fibrillation) (HCC) - EKG today is SR with LBBB - Continue Amiodarone 200- mg daily, Eliquis 5 mg bid -Continue apixaban 5 mg twice daily 3. Obesity (BMI 30-39.9) -At his follow-up visit, if his weight is stable we will see if he will qualify for a GLP-1 and agonists. 4. Essential hypertension - well controlled - Continue Norvasc 5 mg twice a day, this is more for angina and then blood pressure control, minoxidil 10 mg daily, Lopressor 25 mg twice a day, Discussed nonpharmacological ways of lowering her blood pressure including low-sodium diet, weight loss and exercise. 5. Mixed hyperlipidemia - LDL = 50 from 2022 - Continue low fat, low chol diet - Continue Crestor 40 mg daily 6 HFpEF: -Euvolemic today - Continue aldactone 25 mg daily and Torsemide 20 mg twice a day -Recent labs from May demonstrate stable renal function. -Repeat echocardiogram. Follow up in about 1 week (around 07/13/2024) for [place] GONZALEZ - Date of Service: 07/06/2024 Nurse Practitioner in Interventional Cardiology [facility] [place] [address] p [phone] [email or web address] documented in this encounter [facility] 07-06-2024 Instructions DANIELLE Whitehead CNP - 07/06/2024 2:30 PM EST Increase Norvasc ( Amlodipine ) to 5 mg twice a day Start Taking Isosorbide Mononitrate 2 tablets together in the am Start Ranexa ( Ranolazine ) 500 mg twice day 4. Please check if you are taking Carafate 4 times a day ( From GI doctor) 5. Use SL NTG prior to going outside or doing chores. 7 documented in this encounter [facility] 07-06-2024 Telephone encounter Note Phone call to patient , He is having increased angina, Agreeable to OV today at 2:30 pm. [employer] Work Phone: 07-06-2024 Miscellaneous Notes Phone call to patient , He is having increased angina, Agreeable to OV today at 2:30 pm. Patient called into office stating he has had chest pain after walking few weeks. States chest pain is worse after eating then going for a walk. This morning he did not eat and had the chest pain while walking. Rated pain 6/10 mid sternal associated with SOB. He rested and took 1 nitroglycerin tablet, relieved pain to 1/10. BP lately has been 120s-130s/60s. Patient states during episode he will get slightly dizzy. Complaint with medication list. Patient willing to come in for appt if appropriate. 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 Patient c/o CP walking around the house today. nitroglycerin has eased some of the pain, some SOB when he walks. Requesting an appt today. documented in this encounter [employer] 07-06-2024 Telephone encounter Note Patient called into office stating he has had chest pain after walking few weeks. States chest pain is worse after eating then going for a walk. This morning he did not eat and had the chest pain while walking. Rated pain 6/10 mid sternal associated with SOB. He rested and took 1 nitroglycerin tablet, relieved pain to 1/10. BP lately has been 120s-130s/60s. Patient states during episode he will get slightly dizzy. Complaint with medication list. Patient willing to come in for appt if appropriate. 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 [facility] 07-06-2024 Telephone encounter Note Patient c/o CP walking around the house today. nitroglycerin has eased some of the pain, some SOB when he walks. Requesting an appt today. [facility] 05-22-2024 Telephone encounter Note I spoke w/ pt, confirmed RX request. [facility] 05-22-2024 Miscellaneous Notes I spoke w/ pt, confirmed RX request. Patient requesting refill Imdur (isosorbide) 60mg metoprolol tartrate (Lopressor) [address] [facility] verified documented in this encounter [facility] 05-22-2024 Telephone encounter Note Patient requesting refill Imdur (isosorbide) 60mg metoprolol tartrate (Lopressor) [address] [facility] verified [facility] 04-28-2024 Telephone encounter Note Received fax from pharmacy for refill of rosuvastatin [address] Ortega 02/01/24. Lipid panel completed 02/19/23. Pended rxRika METAL TILE LATHER to sign. [facility] 04-28-2024 Miscellaneous Notes Received fax from pharmacy for refill of rosuvastatin 40 mg daily. [facility] Ortega 02/01/24. Lipid panel completed 02/19/23. Pended Rika gimenez APRN to sign. documented in this encounter [facility] 03-09-2024 Telephone encounter Note [facility] 02/01/24 [facility] 03-09-2024 Miscellaneous Notes [facility] 02/01/24 documented in this encounter [facility] 02-01-2024 History of Presen t illness Narrative Images from the original note were not included. [facility] - [address] [address] Dept: [phone] Dept Visit type: Established : 1955 Reason for Visit: Hospital Follow-up Assessment and Plan 1. Obesity (BMI 30-39.9) - [facility] 2. CAD in [place] artery 3. Essential hypertension 4. Mixed hyperlipidemia This is a very pleasant 68y/o male with complex CAD, most recent stent in 02/2021. He has chronic stable angina. We had a long conversation about his CAD and symptoms. He has had >20 caths in his life, >20 stents. We decided to continue medical management and observation for now. He has stopped his imdur and ranexa, and does not want to restart. This is fine, as long as angina stays reasonably controlled. He will let me know if he sees any change or escalation in his symptoms. We also discussed the fact that weight loss and increased exercise would be of benefit. Both from a health standpoint, and to possibly decrease his anginal burden. We have referred him to the weight management team here. Otherwise he should remain as active as possible and I will see him back in one year, sooner if needed. It was a pleasure seeing your patient in the office today. Please do not hesitate to call me with any questions. Follow up in about 1 year (around 01/31/2025). 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 He has a history of CAD s/p numerous stent procedures, all three vessels. Most recent PCI was 02/2021 (RCA), most recent cath was 02/2022 now showed occluded RCA, was not restented. He is doing relatively well. He continues to have chronic and stable angina. This hasn't change much since last cath. He is asking questions about weight management and the possibility of an injectable. Review of Systems Constitutional: Negative for activity change, chills, diaphoresis, fatigue and fever. HENT: Negative for nosebleeds and trouble swallowing. Eyes: Negative for discharge and visual disturbance. Respiratory: Negative for apnea, cough, chest tightness, shortness of breath and wheezing. Cardiovascular: Positive for chest pain (exertionally related and post prandial). Negative for palpitations and leg swelling. Gastrointestinal: Negative for abdominal distention, abdominal pain, blood in stool, diarrhea, nausea and vomiting. Endocrine: Negative for cold intolerance and heat intolerance. Genitourinary: Negative for hematuria. Musculoskeletal: Negative for gait problem and myalgias. Skin: Negative for color change and rash. Neurological: Negative for dizziness, seizures, syncope, facial asymmetry, speech difficulty, weakness, light-headedness, numbness and headaches. Hematological: Does not bruise/bleed easily. Psychiatric/Behavioral: Negative for dysphoric mood. Allergies Allergen Reactions Penicillins Rash Outpatient Medications Prior to Visit Medication Sig Dispense Refill amiodarone (Pacerone) 200 MG tablet Take 1 tablet (200 mg) by mouth daily. 90 tablet 1 amLODIPine (Norvasc) 5 MG tablet Take 1 tablet (5 mg) by mouth daily. 90 tablet 2 apixaban (Eliquis) 5 MG tablet Take 1 tablet (5 mg) by mouth 2 times daily. 180 tablet 3 cholecalciferol (Vitamin D-3) 20 MCG (800 UNIT) tablet Take 800 Units by mouth daily. clopidogrel (Plavix) 75 MG tablet Take 1 tablet (75 mg) by mouth daily. 90 tablet 3 metoprolol tartrate (Lopressor) 25 MG tablet Take 1 tablet (25 mg) by mouth 2 times daily. 180 tablet 3 minoxidil (Loniten) 10 MG tablet Take 10 mg by mouth daily. nitroglycerin (Nitrostat) 0.[address] 1 tablet under the tongue every 5 minutes as needed for Chest pain. If no relief after 3 tablets, call 9-1-1 immediately. 25 tablet 3 polyethylene glycol, PEG, 3350 (Miralax) 17 g packet Take 1 packet by mouth daily. rosuvastatin (Crestor) 40 MG tablet Take 1 tablet (40 mg) by mouth daily. 90 tablet 3 spironolactone (Aldactone) 25 MG tablet Take 1 tablet (25 mg) by mouth 2 times daily. 180 tablet 3 sucralfate (Carafate) 1 g tablet Take 1 g by mouth 4 times daily (before meals and nightly). torsemide (Demadex) 20 MG tablet TAKE ONE TABLET BY MOUTH DAILY - Take1 additional tablet if weight gain more than 2 pounds in 1 day 90 tablet 3 isosorbide mononitrate ER (Imdur) 60 MG 24 hr tablet Take 2 tablets (120 mg) by mouth daily. Do not crush or chew. 90 tablet 3 pantoprazole (Protonix) 40 MG EC tablet Take 1 tablet (40 mg) by mouth every morning (before breakfast). Do not crush, chew, or split. (Patient taking differently: Take 40 mg by mouth 2 times daily. Do not crush, chew, or split.) 90 tablet 3 ranolazine (Ranexa) 500 MG 12 hr tablet Take 1 tablet (500 mg) by mouth 2 times daily. Do not crush, chew, or split. 180 tablet 3 No facility-administered medications prior to visit. 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) ([facility]) 12/2012 NSTEMI (non-ST elevated myocardial infarction) ([facility]) ([facility]) 05/2014 Obesity Old PA (myocardial infarction) HIPOLITO (obstructive sleep apnea) HIPOLITO on CPAP PAF (paroxysmal atrial fibrillation) ([facility]) Rheumatoid arthritis(714.0) ([facility]) ST segment elevation myocardial infarction (STEMI) of anterolateral wall, subsequent episode of care ([facility]) ([facility]) TIA (transient ischemic attack) Social History Tobacco Use Smoking status: Never Smokeless tobacco: Never Substance Use Topics Alcohol use: Not Currently Past Surgical History: Procedure Laterality Date CAPSULOTOMY, HAND 05/07/2016 CARDIAC CATHETERIZATION N/A 03/01/2023 Performed by Zoie Gonzales MD at [facility] Cardiac Cath/EP Lab CARDIAC PROCEDURE Left 05/2015 CARDIAC PROCEDURE Left 06/03/2017 CARDIAC PROCEDURE Bilateral 01/2010 CARDIAC PROCEDURE Left 09/05/2019 PCI to distal RCA and PL branch CHOLECYSTECTOMY 10/30/2019 CORONARY ANGIOPLASTY WITH STENT PLACEMENT Left 11/2006 restent RCA, PHU to CX CORONARY ANGIOPLASTY WITH STENT PLACEMENT Left 05/2014 PTCA /cuttung balloon to instent restenosis RCA CORONARY ANGIOPLASTY WITH STENT PLACEMENT Left 10/2006 DESto prox Rt PAV, mid & dist RCA CORONARY ANGIOPLASTY WITH STENT PLACEMENT Left 11/2014 PHU to RCA CORONARY ANGIOPLASTY WITH STENT PLACEMENT Left 10/2007 PHU to Prox Rt PAV, mid-dist RCA CORONARY ANGIOPLASTY WITH STENT PLACEMENT Left 03/2009 PHU to mid RCA CORONARY ANGIOPLASTY WITH STENT PLACEMENT Left 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 RCA CORONARY ANGIOPLASTY WITH STENT PLACEMENT Left 10/2013 PHU to prox & mid RCA CORONARY ANGIOPLASTY WITH STENT PLACEMENT Left 12/2007 PHU to LAD CORONARY ANGIOPLASTY WITH STENT PLACEMENT Bilateral 03/17/2021 Phu to the Mid RCA, and the Distal RCA CORONARY ANGIOPLASTY WITH STENT PLACEMENT Left 12/2012 PHU to mid RCA & prox-mid Rt GRACE JOINT REPLACEMENT 03/2019 TOTAL HIP ARTHROPLASTY Left 12/2012 Family History Problem Relation Name Age of Onset Diabetes Paternal Grandmother Diabetes Maternal Grandfather Cancer Sister Hypertension Mother Diabetes Sister Diabetes Paternal Grandfather Heart disease Paternal Grandmother Heart disease Paternal Grandfather Cancer Father Diabetes Brother Objective Vitals: 02/01/24 1415 02/01/24 1447 BP: (!) 142/86 (!) 142/80 BP Location: Left arm Left arm Patient Position: Sitting Sitting BP Cuff Size: Adult Adult Pulse: 62 SpO2: 99% Weight: (!) 308 lb (140 kg) Height: 6' 2 (1.88 m) Physical Exam Constitutional: General: He is not in acute distress. Appearance: He is not diaphoretic. HENT: Head: Normocephalic. Nose: Nose normal. Mouth/Throat: Mouth: Mucous membranes are moist. Pharynx: No oropharyngeal exudate. Eyes: General: No scleral icterus. Right eye: No discharge. Left eye: No discharge. Neck: Thyroid: No thyromegaly. Vascular: No carotid bruit or JVD. Cardiovascular: Rate and Rhythm: Normal rate and regular rhythm. Pulses: Normal pulses. Heart sounds: Normal heart sounds. Pulmonary: Effort: Pulmonary effort is normal. Breath sounds: Normal breath sounds. Abdominal: General: Bowel sounds are normal. There is no distension. Palpations: There is no hepatomegaly. Tenderness: There is no abdominal tenderness. Musculoskeletal: General: Normal range of motion. Cervical back: Normal range of motion. Right lower leg: No edema. Left lower leg: No edema. Skin: General: Skin is warm and dry. Neurological: Mental Status: He is oriented to person, place, and time. Psychiatric: Mood and Affect: Mood normal. Behavior: Behavior normal. Data Reviewed and Summarized No results found for: EFBP, PLVEF, LVEFPHYS, LVEF2D, EF Review of tests/labs done/ordered within my specialty: EKG in office: Review of tests/labs done/ordered outside my specialty: Independent interpretation of tests: Dominguez Ortega MD documented in this encounter [facility] 12-21-2023 Telephone encounter Note Spoke with patient and he stated PCP office called him yesterday afternoon and stated medication alterative can be to have a vial and draw medication up, patient declined this option and stated PCP did not provide alterative. Advised patient to call insurance company on preferred brand of medication. If he does not have any alteratives, stated can offer to place referral to weight management services. Patient will call office back if he has any concerns. [facility] 12-21-2023 Miscellaneous Notes Spoke with patient and he stated PCP office called him yesterday afternoon and stated medication alterative can be to have a vial and draw medication up, patient declined this option and stated PCP did not provide alterative. Advised patient to call insurance company on preferred brand of medication. If he does not have any alteratives, stated can offer to place referral to weight management services. Patient will call office back if he has any concerns. Patient states he was returning call to [facility] to discuss his medication. Please contact to advise. Spoke with patient and PCP Dr. Ferrell prescribed an injectable medication for weight loss. Patient went to brain picker medication from pharmacy and it was >$300. Patient requested our office called PCP office to see what further interventions can be done. Spoke with PCP office and medication called James (semaglutide). Explained patient's situation and office has options for patient. Instructed patient PCP office will reach out to patient to discuss. Patient called RE: weight loss injection his PCP is trying to rx. He can not remember the name. He tried to get filled at his pharmacy and it is > $300. He is wondering if we can help him get it through our pharmacy. documented in this encounter [facility] 12-20-2023 Telephone encounter Note Patient states he was returning call to [facility] to discuss his medication. Please contact to advise. [facility] 12-20-2023 Miscellaneous Notes Patient states he was returning call to [facility] to discuss his medication. Please contact to advise. Spoke with patient and PCP Dr. Ferrell prescribed an injectable medication for weight loss. Patient went to brain picker medication from pharmacy and it was >$300. Patient requested our office called PCP office to see what further interventions can be done. Spoke with PCP office and medication called Wegovy (semaglutide). Explained patient's situation and office has options for patient. Instructed patient PCP office will reach out to patient to discuss. Patient called RE: weight loss injection his PCP is trying to rx. He can not remember the name. He tried to get filled at his pharmacy and it is > $300. He is wondering if we can help him get it through our pharmacy. documented in this encounter [facility] 12-20-2023 Telephone encounter Note Spoke with patient and PCP Dr. Ferrell prescribed an injectable medication for weight loss. Patient went to brain picker medication from pharmacy and it was >$300. Patient requested our office called PCP office to see what further interventions can be done. Spoke with PCP office and medication called Wegovy (semaglutide). Explained patient's situation and office has options for patient. Instructed patient PCP office will reach out to patient to discuss. [facility] 12-20-2023 Telephone encounter Note Patient called RE: weight loss injection his PCP is trying to rx. He can not remember the name. He tried to get filled at his pharmacy and it is > $300. He is wondering if we can help him get it through our pharmacy. [facility] 07-29-2023 History of Presen t illness Narrative [facility] Card[facility] [address] [facility] [address] Dept: [phone] Dept Loc: [phone] Visit type: Established : 1955 Chief Complaint: Chief Complaint Patient presents with Coronary Artery Disease Hypertension Atrial Fibrillation History of Present Illness: Shannon Olson is a 67 y.o. male ,followed by Dr Gonzales with a history of CAD, multiple stents, stable angina, diastolic heart failure, PAF with chronic OAC, HLP, HTN, HIPOLITO and COPD. Due to abdominal cramping, Ranexa was reduced to 500 mg bid, and than he increased it to 1000 mg in the am, and 500 mg in the pm. Amlodipine was added at his last visit, due to continued angina. He is dealing with GI issues. He has now gone from diarrhea to severe constipation , and some rectal bleeding which has resolved. This did not require him stopping his Plavix or his Eliquis. He is using MiraLAX and laxatives as needed. He has undergone several additional GI testing including a oatmeal radiation follow-through, which caused him severe nausea and palpitations. Fortunately he has now recovered ,but has not heard the results of these test. He seems to be swallowing better since his last esophageal dilatation. We did add amlodipine back at his last visit and discontinued his minoxidil. He has noted less episodes of angina and more stamina. He has been outside working, taking rests due to SOB. He has been reducing his carbohydrate intake and has managed to lose around 3 to 4 pounds. He has not needed any sublingual nitroglycerin since our last visit. He monitors his blood pressure at home and his readings have been similar to the reading we obtained today. He reduced his Ranexa back to 500 mg twice a day since he is concerned that this may be contributing to some of his abdominal issues. He is waiting to be scheduled for repeat sleep study so that he may get a CPAP machine. He is working with pulmonology. He is scheduled to see his primary care physician tomorrow and had blood work drawn in preparation for this. Past Medical History: Past Medical History: Diagnosis Date Angina pectoris ([facility]) Anxiety Arrhythmia A-fib Asthma CAD (coronary artery disease) Cerebral artery occlusion with cerebral infarction ([facility]) COPD (chronic obstructive pulmonary disease) ([facility]) Depression WATTS (dyspnea on exertion) Fatigue GERD (gastroesophageal reflux disease) History of cardioversion 05/07/2016 Successful conversion of a-fib to SR History of left heart catheterization 05/07/2016 60% stenosis right posterior descending, patent stents in prox, mid & distal RCA, patent stents in med LCx. Findings unchanged from previous study. 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 [facility] current use of antiarrhythmic drug [facility] current use of anticoagulant NSTEMI (non-ST elevated myocardial infarction) ([facility]) ([facility]) 12/2012 NSTEMI (non-ST elevated myocardial infarction) ([facility]) ([facility]) 05/2014 Obesity Old PA (myocardial infarction) HIPOLITO (obstructive sleep apnea) HIPOLITO on CPAP PAF (paroxysmal atrial fibrillation) ([facility]) Rheumatoid arthritis(714.0) ([facility]) ST segment elevation myocardial infarction (STEMI) of anterolateral wall, subsequent episode of care ([facility]) ([facility]) TIA (transient ischemic attack) Past Surgical History Past Surgical History: Procedure Laterality Date CAPSULOTOMY, HAND 05/07/2016 CARDIAC CATHETERIZATION N/A 03/01/2023 Performed by Zoie Gonzales MD at [facility] Cardiac Cath/EP Lab CARDIAC PROCEDURE Left 05/2015 CARDIAC PROCEDURE Left 06/03/2017 CARDIAC PROCEDURE Bilateral 01/2010 CARDIAC PROCEDURE Left 09/05/2019 PCI to distal RCA and PL branch CHOLECYSTECTOMY 10/30/2019 CORONARY ANGIOPLASTY WITH STENT PLACEMENT Left 11/2006 restent RCA, PHU to CX CORONARY ANGIOPLASTY WITH STENT PLACEMENT Left 05/2014 PTCA /cuttung balloon to instent restenosis RCA CORONARY ANGIOPLASTY WITH STENT PLACEMENT Left 10/2006 DESto prox Rt PAV, mid & dist RCA CORONARY ANGIOPLASTY WITH STENT PLACEMENT Left 11/2014 PHU to RCA CORONARY ANGIOPLASTY WITH STENT PLACEMENT Left 10/2007 PHU to Prox Rt PAV, mid-dist RCA CORONARY ANGIOPLASTY WITH STENT PLACEMENT Left 03/2009 PHU to mid RCA CORONARY ANGIOPLASTY WITH STENT PLACEMENT Left 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 RCA CORONARY ANGIOPLASTY WITH STENT PLACEMENT Left 10/2013 PHU to prox & mid RCA CORONARY ANGIOPLASTY WITH STENT PLACEMENT Left 12/2007 PHU to LAD CORONARY ANGIOPLASTY WITH STENT PLACEMENT Bilateral 03/17/2021 Phu to the Mid RCA, and the Distal RCA CORONARY ANGIOPLASTY WITH STENT PLACEMENT Left 12/2012 PHU to mid RCA & prox-mid Rt GRACE [...] Instructions amiodarone (PACERONE) 200 mg, Oral, Daily amLODIPine (NORVASC) 5 mg, Oral, Daily cholecalciferol 800 Units, Oral, Daily clopidogrel (PLAVIX) 75 mg, Oral, Daily Eliquis 5 mg, Oral, 2 times daily isosorbide mononitrate ER (IMDUR) 120 mg, Oral, Daily, Do not crush or chew. metoprolol tartrate (LOPRESSOR) 25 mg, Oral, 2 times daily nitroglycerin (Nitrostat) [...] (ALDACTONE) 25 mg, Oral, 2 times daily sucralfate (CARAFATE) 1 g, Oral, 4 times daily before meals & nightly torsemide (DEMADEX) 20 mg, Oral, Daily, Patient was also instructed to take additional 20 mg torsemide, if weight gain of more than 2 pounds in 1 day. Review of Systems: Review of Systems Physical Examination: Vitals: Vitals: 07/29/23 1033 BP: 126/78 BP Location: Right arm Patient Position: Sitting BP Cuff Size: Adult Pulse: 60 SpO2: 96% Weight: (!) 304 lb (138 kg) Height: 6' 2.5 (1.892 m) Body mass index is 38.51 kg/m . Physical Exam Constitutional: Appearance: Normal appearance. He is obese. HENT: Head: Normocephalic. Eyes: General: No scleral icterus. Right eye: No discharge. Left eye: No discharge. Neck: Vascular: No JVD. Cardiovascular: Rate and Rhythm: Normal rate and regular rhythm. Pulses: Normal pulses. Radial pulses are 2+ on the right side and 2+ on the left side. Heart sounds: Normal heart sounds. No murmur heard. Pulmonary: Effort: Pulmonary effort is normal. Breath sounds: Normal breath sounds and air entry. Abdominal: General: Abdomen is flat. Palpations: Abdomen is soft. Musculoskeletal: General: Normal [...] abnormalities. Last cardiac catheterization: 03/01/2023 Conclusion Impression: 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 of mid RCA that was previously treated [...] added Assessment and Plan: 1. CAD in [place] artery 2. Essential hypertension, benign 3. Mixed hyperlipidemia 4. PAF (paroxysmal atrial fibrillation) ([facility]) 5. Chronic diastolic heart failure ([facility]) 1. CAD in [place] artery: With known 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 of the mid right coronary artery: Continue Plavix 75 mg daily he is not on aspirin secondary to his need for oral anticoagulation. He will continue with amlodipine 5 mg daily, Imdur 120 mg daily, Ranexa 500 mg twice a day, and metoprolol 25 mg twice a day. I doubt the amlodipine was the cause of his severe constipation. I have encouraged him to continue with MiraLAX daily, as well as a stool softener and to follow with GI regarding these issues. - Handicap Placard 2. Essential hypertension :well-controlled on his present regimen. 3. Mixed hyperlipidemia Continue rosuvastatin 40 mg daily. - Handicap Placard 4. PAF (paroxysmal atrial fibrillation) ([facility]) He has been maintained on amiodarone 200 mg daily, as well as Eliquis 5 mg twice daily. 5. Chronic diastolic heart failure (HCC) Continue Aldactone 25 mg twice a day as well as torsemide 20 mg a day. - Handicap Placard I will obtain his blood work from his primary care physician. He wishes to establish with Dr. Ortega upon Dr. Gonzales's prison. He will follow-up in 6 months or sooner if issues arise. documented in this encounter [facility] 07-06-2023 Telephone encounter Note Pt called back in requesting a call back from Dr. Tree Gonzales to discuss a private matter. Please advise [facility] 07-06-2023 Miscellaneous Notes Pt called back in requesting a call back from Dr. rTee Gonzales to discuss a private matter. Please advise Name of caller: Fide Contact phone number: [phone] ext [phone] Relationship to Patient: Ramon Provider: dr Boyce Practice: Pulm Chief Complaint/Reason for Call: New Sleep study and a new order for medicare is needed to approve the Auto Bipap machine Best time of day caller can be reached: Any Patient advised that office/PCP has 24-48 business hours to return their call: Yes Name of caller: Shannon Contact phone number: [phone] Relationship to Patient: patient Provider: Dr. Gonzales Practice: [facility] Pulmonary Chief Complaint/Reason for Call: Patient states that he would like to receive a call from Dr. Gonzales directly to discuss a private matter. Please advise. Best time of day caller can be reached: Any Patient advised that office/PCP has 24-48 business hours to return their call: No documented in this encounter [facility] 07-05-2023 Discharge summary Note Date/Time July 05, 2023 12:06pm [facility] Medical Records Department [address] [place] [address] Emergency Department Summary 07/05/23 MR#: [id number] Acct: [id number] Name: SHANNON OLSON Rep #:[id number] : 1955 67 From: Reynaldo Gaviria DO PCP: Dr. Finn Ferrell MD Status:RE G ER Location: ED HPI HPI - GI History of Present Illness Chief Complaint: Constipation Narrative Narrative: 67-year-old male presenting with constipation x 2 days. No fevers or chills. No nausea or vomiting. Patient states he did try a stool softener with Minimal improvement. Did not try laxative. He states he drinks plenty of water and is eating plenty of fruit but not having bowel moods. He states he typically has problems with diarrhea but after his meds were changed around he is now more constipated. Patient states he is scheduled to have an upper endoscopy next week as he had trouble with acid reflux/GERD symptoms and was previously on Carafate for this. Patient is not having upper abdominal pain today at all in the lower suprapubic/periumbilical region. Patient denies black or bloody stools. He denies fevers or chills. [facility] Medical History Anxiety Atrial fibrillation CAD (coronary artery disease) Cardiology follow-up encounter Chest pain Cholelithiasis with chronic cholecystitis COPD (chronic obstructive pulmonary disease) COPD (chronic obstructive pulmonary disease) Coronary atherosclerosis of [place] coronary vessel Depression Difficulty swallowing Dysphagia Epidermal inclusion cyst Esophageal reflux Excessive bleeding Gastric reflux High cholesterol History of atrial fibrillation History of echocardiogram History of edema History of heart attack history of ischemic stroke History of stress test HTN (hypertension) Hyperlipidemia Hypertension Left rotator cuff tear Leg cramps Non-smoker NSVT (nonsustained ventricular tachycardia) Obstructive sleep apnea syndrome PONV (postoperative nausea and vomiting) Rheumatoid arthritis Screening for malignant neoplasm of intestine Sensorineural hearing loss, 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 Shortness of breath on exertion Sleep apnea Wears glasses Home Medications minoxidil 10 mg tablet 5 mg PO BID blood pressure 10/05/19 [History Last Taken 05/20/23] nitroglycerin 0.4 mg sublingual tablet 0.4 mg sublingual Q5-15M PRN cp 10/05/19 [History Last Taken Unknown] atorvastatin 80 mg tablet 80 mg PO QHS #30 tabs 10/31/20 [Rx Last Taken 05/19/23] clopidogrel 75 mg tablet (Plavix) 75 mg PO DAILY 09/09/21 [History Last Taken 05/19/23] apixaban 5 mg tablet (Eliquis) 5 mg PO BID 10/30/21 [History Last Taken 05/18/23] isosorbide mononitrate 30 mg tablet,extended release 24 hr 60 mg PO DAILY 01/07/22 [History Last Taken 05/20/23] pantoprazole 40 mg tablet,delayed release (Protonix) 40 mg PO QAM #90 tabs 04/01/22 [Rx Last Taken 05/19/23] metoprolol succinate 50 mg tablet,extended release 24 hr 25 mg PO DAILY 04/07/23[History Last Taken 05/20/23] ranolazine 1,000 mg tablet,extended release,12 hr (Ranexa) 500 mg PO BID 04/07/23 [History Last Taken 05/20/23] torsemide 20 mg tablet 20 mg PO DAILY 04/07/23 [History Last Taken 05/19/23] metoprolol tartrate 50 mg tablet 25 mg PO QHS 05/19/23 [History Last Taken 05/20/23] amiodarone 200 mg tablet 200 mg PO DAILY 05/20/23 [History Last Taken 05/20/23] sucralfate 1 gram tablet (Carafate) 1 g PO .qid #360 tabs 05/20/23 [Rx Last Taken Unknown] magnesium citrate 300 ml PO X1 #1 BOTTLE 07/05/23 [Rx Last Taken Unknown] ondansetron 4 mg disintegrating tablet 4 mg PO Q8H PRN PRN Nausea #10 tabs 07/05/23 [Rx Last Taken Unknown] Allergy/AdvReac Type Severity Reaction Status Date / Time Penicillins Allergy Hives Verified 07/05/23 11:45 Family History Sister Cancer ovarian Diabetes Brother Diabetes Mother Heart disease Hypertension Father Prostate cancer Surgical History History of cardiac catheterization History of colonoscopy (~2014) History of coronary angioplasty History of esophagogastroduodenoscopy (EGD) (~2014) History of heart artery stent History of inguinal hernia repair History of knee joint replacement History of left shoulder replacement History of total left hip arthroplasty History of total right hip arthroplasty Hx of cholecystectomy S/P PTCA (percutaneous transluminal coronary angioplasty) Social History household members: none Smoking Status: Never smoker alcohol intake: never substance use type: does not use ROS ROS ED Constitutional Constitutional ED: Denies chills, fever(s) or sweats Eyes Eyes: Denies blurry vision or change in vision ENT ENT ED: Denies ear pain or sore throat Cardiovascular Cardiovascular: Denies chest pain, palpitations or racing heartbeat Respiratory/Chest Respiratory/Chest: Denies cough, dyspnea or sputum Gastrointestinal Gastrointestinal: Reports abdominal pain and constipation; Denies diarrhea, nausea or vomiting Genitourinary Genitourinary ED: Denies dysuria, hematuria or urinary frequency Musculoskeletal Musculoskeletal: Denies arthralgias, myalgias or neck pain Integumentary Denies abscess, Abrasions or rash Neurologic Neurologic: Denies headache(s), paresthesias or weakness Psychiatric Psychiatric: Denies anxiety, depression, suicidal ideation or suicidal thoughts Endocrine Endocrinology: Denies polydipsia or polyuria EXAM Physical Exam Const Vital Signs: 07/05/23 11:45 Temperature 97.2 F L Temperature Source Temporal Pulse Rate 72 Respiratory Rate 14 Blood Pressure 195/91 H Blood Pressure Mean 125 Pulse Ox 100 Oxygen Delivery Method Room Air Positive well nourished General Appearance ED: NAD; Negative for pallor HEENT Reports moist mucous membranes normocephalic and atraumatic Eyes PERRL and EOMs intact bilaterally Resp normal respiratory effort Cardio regular rate and regular rhythm GI non-tender Palpation: tender periumbilical and suprapubic; Negative for guarding, rigid, hepatomegaly, splenomegaly or hernia Back/Spine no CVA tenderness Neuro CN's II-XII intact bilaterally Sensorium / Orientation: alert Psych mental status grossly normal and thought process normal Skin General Skin Exam: Negative for jaundice or pallor MDM MDM MDM Narrative Medical decision making narrative: Patient presenting with abdominal pain. Patient presenting with right flank pain. Differential includes colitis, diverticulitis, gastritis, pancreatitis, constipation, UTI, pyelonephritis, renal calculi, ureteral calculi, bowel obstruction, malignancy, dehydration, electrolyte abnormalities. IV access was established. Patient given a liter normal saline. After discussion we decided we would hold off on pain medication in case he is just constipated. CBC will be obtained to assess white blood cell count, hemoglobin, platelets. CMP to assess renal function, electrolytes, liver function, glucose. Lipase to assess for pancreatitis. Urinalysis to assess for UTI. Will obtain a CT of the abdomen pelvis with IV contrast. Patient requested something for nausea and was given Zofran. CBC unremarkable. CMP shows normal liver function. Creatinine slightly elevated 1.74 today. Patient was given IV fluids. Urinalysis negativefor infection. CT of the abdomen pelvis with IV contrast was obtained and showsno acute findings. Given this patient we discharged home with Zofran and magnesium citrate. Return precautions discussed. Impression: 1. Abdominal pain 2. Constipation 3. Nausea Lab Data Attestation: I reviewed the patient's lab results. Labs: Laboratory Results - last 24 hr 07/05/23 07/05/23 12:20 13:02 WBC 7.8 RBC 4.45 L Hgb 12.9 L Hct 40.3 MCV 90.6 MCH 29.0 MCHC 32.0 RDW Std Deviation 47.9 H RDW Coeff of Santhosh 14.6 Plt Count 238 MPV 9.8 Immature Gran % (Auto) 0.800 Neut % (Auto) 74.9 H Lymph % (Auto) 15.2 L [place] % (Auto) 7.1 Eos % (Auto) 1.4 Baso % (Auto) 0.6 Absolute Neuts (auto) 5.8 Absolute Lymphs (auto) 1.18 Nucleated RBC % 0 Sodium 142 Potassium 4.6 Chloride 112 H Carbon Dioxide 25.0 Anion Gap 5 BUN 37 H Creatinine 1.74 H Estim Creat Clear Calc 61.91 Est GFR (MDRD) Af Amer 51 L Est GFR (MDRD) Non-Af 42 L BUN/Creatinine Ratio 21.3 H Glucose 121 H Calcium 9.2 Total Bilirubin 1.00 AST 9 L ALT 28 Alkaline Phosphatase 97 Total Protein 7.6 Albumin 3.7 Globulin 3.9 Albumin/Globulin Ratio 0.9 Lipase 53 Urine Color Yellow Urine Clarity Clear Urine pH 6.0 Ur Specific Elizabeth 1.015 Urine Protein Negative Urine Glucose (UA) Normal Urine Ketones Negative Urine Occult Blood Negative Urine Nitrite Negative Urine Bilirubin Negative Urine Urobilinogen Normal Ur Leukocyte Esterase Negative Urine RBC 0 SEEN Urine WBC 0 SEEN Ur Squamous Epith Cells 0 SEEN Urine Bacteria 0 SEEN Urine Mucus 0 SEEN Radiography Diagnostic Testing: Clinical Impression(s) from Imaging Studies Abdomen/Pelvis CT 07/05/23 13:20 IMPRESSION: Fatty infiltration of the liver. Small right hepatic cyst. Stable bilateral renal cysts. Electronically Signed: Beka Zuleta MD at 13:52 EST , Discharge Plan Triage Chief Complaint: Constipation ED Provider: Reynaldo Gaviria Dx/Rx/DC Orders Instructions: ED Constipation (Adult), ED Abdominal Pain Unkn Cause Male... Prescriptions: New ondansetron 4 mg tablet,disintegrating 4 mg PO Q8H PRN PRN (Reason: Nausea) Qty: 10 0RF magnesium citrate Solution 300 ml PO X1 Qty: 1 0RF No Action nitroglycerin 0.4 mg tablet, sublingual 0.4 mg SUBLINGUAL Q5-15M PRN (Reason: cp) Rx Instructions: do not exceed 3 doses per episode minoxidil 10 mg tablet 5 mg PO BID Patient Comments: TAKE ONE-HALF TABLET BY MOUTH TWICE DAILY Eliquis 5 mg tablet 5 mg PO BID pantoprazole [Protonix] 40 mg tablet,delayed release (DR/EC) 40 mg PO QAM Qty: 90 3RF ranolazine [Ranexa] 1,000 mg tablet extended release 12 hr 500 mg PO BID metoprolol succinate 50 mg tablet extended release 24 hr 25 mg PO DAILY torsemide 20 mg tablet 20 mg PO DAILY atorvastatin 80 mg Tablet 80 mg PO QHS Qty: 30 0RF clopidogrel [Plavix] 75 mg Tablet 75 mg PO DAILY isosorbide mononitrate 30 mg Tablet Extended Release 24 Hr 60 mg PO DAILY metoprolol tartrate 50 mg tablet 25 mg PO QHS amiodarone 200 mg tablet 200 mg PO DAILY Patient Comments: TAKE ONE TABLET BY MOUTH DAILY sucralfate [Carafate] 1 gram tablet 1 g PO .qid Qty: 360 0RF Primary Care Provider: Finn Ferrell Referrals: Finn Ferrell MD [Primary Care Provider] - Disposition Disposition: Home, Self Care What to do if you have Problems For any increased pain, shortness of breath, bleeding, nausea or vomiting, chestpain, or any unexpected problems, contact your Primary Care Provider. Call [facility] ([phone]) or report to the closest Emergency Room. Call 911 if necessary. 07/05/23 1413 <Electronically signed by Reynaldo Gaviria DO> Cosigner Signature (if applicable): CC: Dr. Finn Ferrell MD ~ Signed [facility] Work Phone: [phone] Telephone encounter Note* Telephone Encounter - Melanie Reza - 07/02/2023 10:00 AM EST Name of caller: Fide Contact phone number: [phone] [facility] [id number] Relationship to Patient: Ramon Provider: dr Boyce Practice: Pulm Chief Complaint/Reason for Call: New Sleep study and a new order for medicare is needed to approve the Auto Bipap machine Best time of day caller can be reached: Any Patient advised that office/PCP has 24-48 business hours to return their call: Yes [phone] Telephone encounter Note* Telephone Encounter - Sapna Smalls - 07/01/2023 2:49 PM EST Name of caller: Shannon Contact phone number: [phone] Relationship to Patient: patient Provider: Dr. Gonzales Practice: [facility] Pulmonary Chief Complaint/Reason for Call: Patient states that he would like to receive a call from Dr. Gonzales directly to discuss a private matter. Please advise. Best time of day caller can be reached: Any Patient advised that office/PCP has 24-48 business hours to return their call: No [id number] History of Present illness Narrative* France Spain, METAL TILE LATHER - LABOR TRAINING MANAGER - 06/17/2023 10:00 AM EST [facility] Cardiology [facility] [address] [facility] [address] Dept: [phone] Dept Loc: [phone] Visit type: Established : 1955 Chief Complaint: Chief Complaint Patient presents with Follow-up Chest Pain Dizziness Shortness of Breath History of Present Illness: Shannon Olson is a 67 y.o. male , followed [...] and has been unsuccessful in contacting the tank refinisher. He has not lost a significant amount [...] follow-up in a couple weeks with the tribal council member. Past Medical History: Past Medical History: Diagnosis Date Angina pectoris (HCC) Anxiety Arrhythmia A-fib Asthma CAD (coronary artery disease) Cerebral artery occlusion with cerebral infarction (HCC) COPD (chronic obstructive pulmonary disease) ([facility]) Depression WATTS (dyspnea on exertion) Fatigue GERD (gastroesophageal reflux disease) History of cardioversion 05/07/2016 Successful conversion of a-fib to SR History of left heart catheterization 05/07/2016 60% stenosis right posterior descending, patent stents in prox, mid & distal RCA, patent stentsin med LCx. Findings unchanged from previous study. 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) ([facility]) 12/2012 NSTEMI (non-ST elevated myocardial infarction) ([facility]) ([facility]) 05/2014 Obesity Old PA (myocardial infarction) HIPOLITO (obstructive sleep apnea) HIPOLITO on CPAP PAF (paroxysmal atrial fibrillation) ([facility]) Rheumatoid arthritis(714.0) ([facility]) ST segment elevation myocardial infarction (STEMI) of anterolateral wall, subsequent episode of care ([facility]) ([facility]) TIA (transient ischemic attack) Past Surgical History Past Surgical History: Procedure Laterality Date CAPSULOTOMY, HAND 05/07/2016 CARDIAC CATHETERIZATION N/A 03/01/2023 Performed by Zoie Gonzales MD at [facility] Cardiac Cath/EP Lab CARDIAC PROCEDURE Left 05/2015 CARDIAC PROCEDURE Left 06/03/2017 CARDIAC PROCEDURE Bilateral 01/2010 CARDIAC PROCEDURE Left 09/05/2019 PCI to distal RCA and PL branch CHOLECYSTECTOMY 10/30/2019 CORONARY ANGIOPLASTY WITH STENT PLACEMENT Left 11/2006 restent RCA, PHU to CX CORONARY ANGIOPLASTY WITH STENT PLACEMENT Left 05/2014 PTCA /cuttung balloon to instent restenosis RCA CORONARY ANGIOPLASTY WITH STENT PLACEMENT Left 10/2006 DESto prox Rt PAV, mid & dist RCA CORONARY ANGIOPLASTY WITH STENT PLACEMENT Left 11/2014 PHU to RCA CORONARY ANGIOPLASTY WITH STENT PLACEMENT Left 10/2007 PHU to Prox Rt PAV, mid-dist RCA CORONARY ANGIOPLASTY WITH STENT PLACEMENT Left 03/2009 PHU to mid RCA CORONARY ANGIOPLASTY WITH STENT PLACEMENT Left 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 RCA CORONARY ANGIOPLASTY WITH STENT PLACEMENT Left 10/2013 PHU to prox & mid RCA CORONARY ANGIOPLASTY WITH STENT PLACEMENT Left 12/2007 PHU to LAD CORONARY ANGIOPLASTY WITH STENT PLACEMENT Bilateral 03/17/2021 Phu to the Mid RCA, and the Distal RCA CORONARY ANGIOPLASTY WITH STENT PLACEMENT Left 12/2012 PHU to mid RCA & prox-mid Rt GRACE [...] abnormalities. Last cardiac catheterization: 03/01/2023 Conclusion Impression: 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 of mid RCA that was previously treated [...] added Assessment and Plan: 1. CAD in [place] artery with Stable angina: His angina seems [...] I will not change his diuretic therapy butI will adjust his minoxidil dose. 3. Essential [...] rosuvastatin 40 mg daily. documented in this [facility]01-25-2024 History of Present illness Narrative* [place] Jason Spain, METAL TILE LATHER - LABOR TRAINING MANAGER - 06/17/2023 10:00 AM EST [facility] Cardiology [facility] [address] [facility] [address] Dept: [phone] Dept Loc: [phone] Visit type: Established : 1955 Chief Complaint: Chief Complaint Patient presents with Follow-up Chest Pain Dizziness Shortness of Breath History of Present Illness: Shannon Olson is a 67 y.o. male , followed [...] and has been unsuccessful in contacting the tank refinisher. He has not lost a significant amount [...] follow-up in a couple weeks with the tribal council member. Past Medical History: Past Medical History: Diagnosis Date Angina pectoris (HCC) Anxiety Arrhythmia A-fib Asthma CAD (coronary artery disease) Cerebral artery occlusion with cerebral infarction (HCC) COPD (chronic obstructive pulmonary disease) ([facility]) Depression WATTS (dyspnea on exertion) Fatigue GERD (gastroesophageal reflux disease) History of cardioversion 05/07/2016 Successful conversion of a-fib to SR History of left heart catheterization 05/07/2016 60% stenosis right posterior descending, patent stents in prox, mid & distal RCA, patent stentsin med LCx. Findings unchanged from previous study. 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 [facility] current use of antiarrhythmic drug [facility] current use of anticoagulant NSTEMI (non-ST elevated myocardial infarction) ([facility]) ([facility]) 12/2012 NSTEMI (non-ST elevated myocardial infarction) ([facility]) ([facility]) 05/2014 Obesity [place] (myocardial infarction) HIPOLITO (obstructive sleep apnea) HIPOLITO on CPAP PAF (paroxysmal atrial fibrillation) ([facility]) Rheumatoid arthritis(714.0) ([facility]) ST segment elevation myocardial infarction (STEMI) of anterolateral wall, subsequent episode of care ([facility]) ([facility]) TIA (transient ischemic attack) Past Surgical History Past Surgical History: Procedure Laterality Date CAPSULOTOMY, HAND 05/07/2016 CARDIAC CATHETERIZATION N/A 03/01/2023 Performed by Zoie Gonzales MD at [facility] Cardiac Cath/EP Lab CARDIAC PROCEDURE Left 05/2015 CARDIAC PROCEDURE Left 06/03/2017 CARDIAC PROCEDURE Bilateral 01/2010 CARDIAC PROCEDURE Left 09/05/2019 PCI to distal RCA and PL branch CHOLECYSTECTOMY 10/30/2019 CORONARY ANGIOPLASTY WITH STENT PLACEMENT Left 11/2006 restent RCA, PHU to CX CORONARY ANGIOPLASTY WITH STENT PLACEMENT Left 05/2014 PTCA /cuttung balloon to instent restenosis RCA CORONARY ANGIOPLASTY WITH STENT PLACEMENT Left 10/2006 DESto prox Rt PAV, mid & dist RCA CORONARY ANGIOPLASTY WITH STENT PLACEMENT Left 11/2014 PHU to RCA CORONARY ANGIOPLASTY WITH STENT PLACEMENT Left 10/2007 PHU to Prox Rt PAV, mid-dist RCA CORONARY ANGIOPLASTY WITH STENT PLACEMENT Left 03/2009 PHU to mid RCA CORONARY ANGIOPLASTY WITH STENT PLACEMENT Left 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 RCA CORONARY ANGIOPLASTY WITH STENT PLACEMENT Left 10/2013 PHU to prox & mid RCA CORONARY ANGIOPLASTY WITH STENT PLACEMENT Left 12/2007 PHU to LAD CORONARY ANGIOPLASTY WITH STENT PLACEMENT Bilateral 03/17/2021 Phu to the Mid RCA, and the Distal RCA CORONARY ANGIOPLASTY WITH STENT PLACEMENT Left 12/2012 PHU to mid RCA & prox-mid Rt GRACE [...] abnormalities. Last cardiac catheterization: 03/01/2023 Conclusion Impression: 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 of mid RCA that was previously treated [...] added Assessment and Plan: 1. CAD in [place] artery with Stable angina: His angina seems [...] I will not change his diuretic therapy butI will adjust his minoxidil dose. 3. Essential hypertension, benign Blood pressure is unusually low for him today. He reports dizziness, which he is somewhat attributing to sinus issues. I have asked him to reduce his minoxidil to 2.5 mg daily. I will reassess him inapproximately 2 weeks when he returns for his sleep apnea visit. He was advised to monitor his blood pressure at home and to call with any elevations or worsening angina. 4. PAF (paroxysmal atrial fibrillation) (HCC) Continues on amiodarone 200 daily, as well as apixaban 5 mg twice a day. 5. Mixed hyperlipidemia LDL at goal, continue rosuvastatin 40 mg daily. documented in this [facility]01-25-2024 Instructions* Patient Instructions* DANIELLE Whitehead CNP - 06/17/2023 10:00 AM EST Reduce minoxidil to 5 mg daily. documented in this [facility]12-28-2023 Procedure [facility]12-28-2023 Procedure [facility]12-18-2023 History of Present illness Narrative* Tree Gonzales MD - 05/10/2023 10:30 AM EST Chief Complaint: Chief Complaint Patient presents with Follow-up History of Present Illness: HPI Follow up for dyspnea. He has severe CAD with diastolic CHF and also HIPOLITO. He has established with Dr. Boyce and is now on Bipap and is more tolerant of PAP therapywith mask changes. He is happy with Dr. [...] Past Medical History: Diagnosis Date Angina pectoris ([facility]) Anxiety Arrhythmia A-fib Asthma CAD (coronary artery disease) Cerebral artery occlusion with cerebral infarction ([facility]) COPD (chronic obstructive pulmonary disease) ([facility]) Depression WATTS (dyspnea on exertion) Fatigue GERD (gastroesophageal reflux disease) History of cardioversion 05/07/2016 Successful conversion of a-fib to SR History of left heart catheterization 05/07/2016 60% stenosis right posterior descending, patent stents in prox, mid & distal RCA, patent stentsin med LCx. Findings unchanged from previous study. 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/HCC) ([facility]) 12/2012 NSTEMI (non-ST elevated myocardial infarction) ([facility]) ([facility]) 05/2014 Obesity Old PA (myocardial infarction) HIPOLITO (obstructive sleep apnea) HIPOLITO on CPAP PAF (paroxysmal atrial fibrillation) ([facility]) Rheumatoid arthritis(714.0) ([facility]) ST segment elevation myocardial infarction (STEMI) of anterolateral wall, subsequent episode of care ([facility]) ([facility]) TIA (transient ischemic attack) Social [...] tablets (120 mg) by mouth daily. Do notcrush or chew. 90 tablet 3 metoprolol tartrate [...] sleep medicine. 2. Atherosclerotic heart disease of [place] coronary artery with other forms of angina [...] sleep, prn with me documented in this [facility]12-18-2023 Instructions* Patient Instructions* Marii Kumar Rai, MA - 05/10/2023 10:30 AM EST YOUR APPOINTMENT TODAY WAS WITH THE [facility], COPD CLINIC, PULMONARY AND SLEEP MEDICINE OFFICE. PLEASE CALL OUR OFFICE AT [phone] IF YOU HAVE NOT RECEIVED YOUR TEST [...] to make improvements. COVID-19 VACCINATION INFORMATION: PH. [phone] HEALTH.[email or web address] [facility] Central Scheduling [phone] [facility] Sleep Scheduling [phone] documented in this [facility]11-22-2023 Telephone encounter Note* Telephone Encounter - Renate Duke RN - 04/14/2023 9:52 AM EST PC to patient with lab results. He states his abdominal discomfort has improved on lower dose of Ranexa. Will update NALDO [facility] [id number] Miscellaneous Notes* Telephone Encounter - Renate Duke RN - 04/14/2023 9:52 AM EST PC to patient with lab results. He states his abdominal discomfort has improved on lower dose of Ranexa. Will update NALDO * Telephone Encounter - DANIELLE Whitehead CNP - 04/13/2023 4:27 PM EST PC to patient, BMP stable, attempted to call patient, but no answer, no voice mail. Please let him know BMP stable, Please ask if abdominal pain is better on lower dose of ranexa. documented in this encounterSLutheran [id number] Telephone encounter Note* Telephone Encounter - DANIELLE Whitehead CNP - 04/13/2023 4:27 PM EST PC to patient, BMP stable, attempted to call patient, but no answer, no voice mail. Please let him know BMP stable, Please ask if abdominal pain is better on lower dose of ranexa. [place] [id number] Telephone encounter Note* Telephone Encounter - Trena Pratt - 04/08/2023 3:35 PM EST Patient requesting refill on metoprolol tartrate 25 MG BID to be sent to [facility]. [place] [id number] Miscellaneous Notes* Telephone Encounter - Trena Pratt - 04/08/2023 3:35 PM EST Patient requesting refill on metoprolol tartrate 25 MG BID to be sent to [facility]. * Telephone Encounter - Renate Duke RN - 04/01/2023 4:26 PM EST Please review and refuse if appropriate. Med stopped at discharge in November documented in this encounterSLutheran [id number] History of Present illness Narrative* [place], DANIELLE - RIA - 04/08/2023 10:00 AM EST [facility] Cardiology [facility] [address] [place] [address] Dept: [phone] Dept Loc: [phone] Visit type: Established : 1955 Chief Complaint: Chief Complaint Patient presents with Follow-up Shortness of Breath Dizziness History of Present Illness: Shannon Olson is a 67 y.o. male followed by Dr Gonzales with a history of CAD, COPD, PAF with chronicOAC, HLP, and HTN. HIPOLITO for which he is working to get treated but is having a hard time adjusting to any device. He continued to have his typical angina,so a LHC was recommended. This was performed ,and RCA was occlude with collateral circulation. Renexa was added, and at his last OV was increasedto 1000 mg bid. He presents for follow-up today. He states his angina is improved with the increased dose of Ranexahowever he has developed severe abdominal cramping that [...] Past Medical History: Diagnosis Date Angina pectoris ([facility]) Anxiety Arrhythmia A-fib Asthma CAD (coronary artery disease) Cerebral artery occlusion with cerebral infarction ([facility]) COPD (chronic obstructive pulmonary disease) ([facility]) Depression WATTS (dyspnea on exertion) Fatigue GERD (gastroesophageal reflux disease) History of cardioversion 05/07/2016 Successful conversion of a-fib to SR History of left heart catheterization 05/07/2016 60% stenosis right posterior descending, patent stents in prox, mid & distal RCA, patent stentsin med LCx. Findings unchanged from previous study. 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 [facility] current use of antiarrhythmic drug [facility] current use of anticoagulant NSTEMI (non-ST elevated myocardial infarction) ([facility]) ([facility]) 12/2012 NSTEMI (non-ST elevated myocardial infarction) ([facility]) ([facility]) 05/2014 Obesity Old PA (myocardial infarction) HIPOLITO (obstructive sleep apnea) HIPOLITO on CPAP PAF (paroxysmal atrial fibrillation) ([facility]) Rheumatoid arthritis(714.0) ([facility]) ST segment elevation myocardial infarction (STEMI) of anterolateral wall, subsequent episode of care ([facility]) ([facility]) TIA (transient ischemic attack) Past Surgical History Past Surgical History: Procedure Laterality Date CAPSULOTOMY, HAND 05/07/2016 CARDIAC CATHETERIZATION N/A 03/01/2023 Performed by Zoie Gonzales MD at [facility] Cardiac Cath/EP Lab CARDIAC PROCEDURE Left 05/2015 CARDIAC PROCEDURE Left 06/03/2017 CARDIAC PROCEDURE Bilateral 01/2010 CARDIAC PROCEDURE Left 09/05/2019 PCI to distal RCA and PL branch CHOLECYSTECTOMY 10/30/2019 CORONARY ANGIOPLASTY WITH STENT PLACEMENT Left 11/2006 restent RCA, PHU to CX CORONARY ANGIOPLASTY WITH STENT PLACEMENT Left 05/2014 PTCA /cuttung balloon to instent restenosis RCA CORONARY ANGIOPLASTY WITH STENT PLACEMENT Left 10/2006 DESto prox Rt PAV, mid & dist RCA CORONARY ANGIOPLASTY WITH STENT PLACEMENT Left 11/2014 PHU to RCA CORONARY ANGIOPLASTY WITH STENT PLACEMENT Left 10/2007 PHU to Prox Rt PAV, mid-dist RCA CORONARY ANGIOPLASTY WITH STENT PLACEMENT Left 03/2009 PHU to mid RCA CORONARY ANGIOPLASTY WITH STENT PLACEMENT Left 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 RCA CORONARY ANGIOPLASTY WITH STENT PLACEMENT Left 10/2013 PHU to prox & mid RCA CORONARY ANGIOPLASTY WITH STENT PLACEMENT Left 12/2007 PHU to LAD CORONARY ANGIOPLASTY WITH STENT PLACEMENT Bilateral 03/17/2021 Phu to the Mid RCA, and the Distal RCA CORONARY ANGIOPLASTY WITH STENT PLACEMENT Left 12/2012 PUH to mid RCA & prox-mid Rt GRACE [...] abnormalities. Last cardiac catheterization: 03/01/2023 Conclusion Impression: 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 of mid RCA that was previously treated [...] added Assessment and Plan: 1. CAD in [place] artery: with stable angina: Secondary to abdominal cramping, I will reduce his Ranexa back to 500 mg twice a day. I will increase his metoprolol to 50 mg in the morning and 25 mg in the evening.Continue Imdur 120 mg daily. He was also advised to use a prophylactic sublingual nitroglycerin prior to doing exertional activities.I have asked him to contact our office in a few weeks, to let us know if the abdominal cramping hasimproved. Continue Plavix 75 mg daily. No aspirin, [...] frustrated with the number of medications that heis taken. I advised him that I did not feel it would be prudent to discontinue any of these at thistime. 4. PAF (paroxysmal atrial fibrillation) (HCC) Continue amiodarone 200 mg daily. He will continue on his apixaban 5 mg twice a day. He was advisedit is safe to hold this 2 days prior to his EGD, however he must continue his Plavix 75 mg daily uninterrupted. This was discussed by telephone with Dr. Gonzales. 5. Mixed hyperlipidemia Continue rosuvastatin 40 mg daily. He will follow-up in 2 months. documented in this [facility]11-16-2023 Instructions* Patient Instructions* DANIELLE Whitehead CNP - 04/08/2023 10:00 AM EST Reduce Ranexa to 500 mg twice a day. 2. Increase metoprolol to 50 mg in the am,( 2 tablets ) and 25 mg in the pm. Use SL NTG prior to exertional activities. Call with an update on abdominal cramping documented in this [facility]11-09-2023 Telephone encounter Note* Telephone Encounter - Renate Duke RN - 04/01/2023 4:26 PM EST Please review and refuse if appropriate. Med stopped at discharge in November [facility] [id number] History of Present illness Narrative* Chris Boyce MD - 03/29/2023 1:15 PM EST [facility]- PULMONARY AND SLEEP MEDICINE ESTABLISHED PATIENT VISIT 03/29/2023 CHIEF COMPLAINT/REASON FOR REFERRAL: Chief Complaint Patient presents with Follow-up Sleep Apnea History of Present Illness: Shannon Olson presents today for follow-up of HIPOLITO. We [...] first few nights after starting PAP therapy. Villanueva his sleep qualitywas much better. However, subsequently had difficulties with [...] left heart cath on 03/01/2023 which demonstrated 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 of the RCA, 10 to 40% stenosis of the circumflex, 10% stenosis of LAD. He was started on Ranexa for his chest pain which was subsequently increased to 1000 twice daily. Continues on torsemide daily. [place] Sleepiness Scale Sitting and reading: Slight chance [...] we found that it seals well. I amhoping there will be less issues with the mask moving on his face during his sleep. I sent a new pre scription for nasal pillows interface and a chinstrap to his DME provider- [facility]. Encouraged the patient to keep trying to use his device and reinforced the settings are working well for him based on his previous usage data. Routine follow-up in 2 to 3 months. Chris Boyce MD Pulmonary, Critical Care, and Sleep [...] in prox, mid & distal RCA, patent stentsin med LCx. Findings unchanged from previous study. 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 [facility] current use of antiarrhythmic drug [facility] current use of anticoagulant NSTEMI (non-ST elevated myocardial infarction) ([facility]) ([facility]) 12/2012 NSTEMI (non-ST elevated myocardial infarction) ([facility]) ([facility]) 05/2014 Obesity Old PA (myocardial infarction) HIPOLITO (obstructive sleep apnea) HIPOLITO on CPAP PAF (paroxysmal atrial fibrillation) ([facility]) Rheumatoid arthritis(714.0) ([facility]) ST segment elevation myocardial infarction (STEMI) of anterolateral wall, subsequent episode of care ([facility]) ([facility]) TIA (transient ischemic attack) Past Surgical History Past Surgical History: Procedure Laterality Date CAPSULOTOMY, HAND 05/07/2016 CARDIAC CATHETERIZATION N/A 03/01/2023 Performed by Zoie Gonzales MD at [facility] Cardiac Cath/EP Lab CARDIAC PROCEDURE Left 05/2015 CARDIAC PROCEDURE Left 06/03/2017 CARDIAC PROCEDURE Bilateral 01/2010 CARDIAC PROCEDURE Left 09/05/2019 PCI to distal RCA and PL branch CHOLECYSTECTOMY 10/30/2019 CORONARY ANGIOPLASTY WITH STENT PLACEMENT Left 11/2006 restent RCA, PHU to CX CORONARY ANGIOPLASTY WITH STENT PLACEMENT Left 05/2014 PTCA /cuttung balloon to instent restenosis RCA CORONARY ANGIOPLASTY WITH STENT PLACEMENT Left 10/2006 DESto prox Rt PAV, mid & dist RCA CORONARY ANGIOPLASTY WITH STENT PLACEMENT Left 11/2014 PHU to RCA CORONARY ANGIOPLASTY WITH STENT PLACEMENT Left 10/2007 PHU to Prox Rt PAV, mid-dist RCA CORONARY ANGIOPLASTY WITH STENT PLACEMENT Left 03/2009 PHU to mid RCA CORONARY ANGIOPLASTY WITH STENT PLACEMENT Left 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 RCA CORONARY ANGIOPLASTY WITH STENT PLACEMENT Left 10/2013 PHU to prox & mid RCA CORONARY ANGIOPLASTY WITH STENT PLACEMENT Left 12/2007 PHU to LAD CORONARY ANGIOPLASTY WITH STENT PLACEMENT Bilateral 03/17/2021 Phu to the Mid RCA, and the Distal RCA CORONARY ANGIOPLASTY WITH STENT PLACEMENT Left 12/2012 PHU to mid RCA & prox-mid Rt GRACE [...] mg) by mouth daily. Patient was also instructedto take additional 20 mg torsemide, if weight [...] chest 1 view Narrative [facility] Name[facility] 1955 [id number] Ex[facility] Date/Time: 12/07/2022 08:42 Procedure: XR CHEST [...] and central pulmonary vasculature consistent with mild congestiveheart failure/fluid overload. Report Dictated on Electronically Signed [...] Results: No results found for: FEV1, FVC, ZDY8YWV, TLC, DLCO No results found for: FEV1, FVC, MFM9ZYL, TLC, DLCO documented in this [facility]11-06-2023 Instructions* Patient Instructions* Tennille Escalante MA - 03/29/2023 1:15 PM EST YOUR APPOINTMENT TODAY WAS WITH THE [facility], COPD CLINIC, PULMONARY AND SLEEP MEDICINE OFFICE. PLEASE CALL OUR OFFICE AT [phone] IF YOU HAVE NOT RECEIVED YOUR TEST [...] to make improvements. COVID-19 VACCINATION INFORMATION: PH. [phone] HEALTH.[email or web address] [facility] Central Scheduling [phone] [facility] Sleep Scheduling [phone] documented in this [facility]10-26-2023 History of Present illness Narrative* France Spain APRN - RIA - 03/18/2023 11:00 AM EDT [facility] Cardiology [facility] [address] [place] [address] Dept: [phone] Dept Loc: [phone] Visit type: Established : 1955 Chief Complaint: Chief Complaint Patient presents with Follow-up Shortness of Breath Chest Pain History of Present Illness: Shannon Olson is a 67 y.o. male followed by Dr Gonzales with a history of CAD, COPD, PAF with chronicOAC, HLP, and HTN. HIPOLITO for which he is working to get treated but is having a hard time adjusting to any device. He continued to have his typical angina,so a LHC was recommended. This was performed ,and RCA was occlude with collateral circulation. Renexa was added. He presents for follow-up today. He has noticed about a 60% improvement in his anginal symptoms. He was able to work out in the yardand pull some weeds without difficulty. He also [...] Past Medical History: Diagnosis Date Angina pectoris ([facility]) Anxiety Arrhythmia A-fib Asthma CAD (coronary artery disease) Cerebral artery occlusion with cerebral infarction ([facility]) COPD (chronic obstructive pulmonary disease) ([facility]) Depression WATTS (dyspnea on exertion) Fatigue GERD (gastroesophageal reflux disease) History of cardioversion 05/07/2016 Successful conversion of a-fib to SR History of left heart catheterization 05/07/2016 60% stenosis right posterior descending, patent stents in prox, mid & distal RCA, patent stentsin med LCx. Findings unchanged from previous study. 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 [facility] current use of antiarrhythmic drug [facility] current use of anticoagulant NSTEMI (non-ST elevated myocardial infarction) ([facility]/HCC) ([facility]) 12/2012 NSTEMI (non-ST elevated myocardial infarction) ([facility]) ([facility]) 05/2014 Obesity Old PA (myocardial infarction) HIPOLITO (obstructive sleep apnea) HIPOLITO on CPAP PAF (paroxysmal atrial fibrillation) ([facility]) Rheumatoid arthritis(714.0) ([facility]) ST segment elevation myocardial infarction (STEMI) of anterolateral wall, subsequent episode of care ([facility]) ([facility]) TIA (transient ischemic attack) Past Surgical History Past Surgical History: Procedure Laterality Date CAPSULOTOMY, HAND 05/07/2016 CARDIAC CATHETERIZATION N/A 03/01/2023 Performed by Zoie Gonzales MD at [facility] Cardiac Cath/EP Lab CARDIAC PROCEDURE Left 05/2015 CARDIAC PROCEDURE Left 06/03/2017 CARDIAC PROCEDURE Bilateral 01/2010 CARDIAC PROCEDURE Left 09/05/2019 PCI to distal RCA and PL branch CHOLECYSTECTOMY 10/30/2019 CORONARY ANGIOPLASTY WITH STENT PLACEMENT Left 11/2006 restent RCA, PHU to CX CORONARY ANGIOPLASTY WITH STENT PLACEMENT Left 05/2014 PTCA /cuttung balloon to instent restenosis RCA CORONARY ANGIOPLASTY WITH STENT PLACEMENT Left 10/2006 DESto prox Rt PAV, mid & dist RCA CORONARY ANGIOPLASTY WITH STENT PLACEMENT Left 11/2014 PHU to RCA CORONARY ANGIOPLASTY WITH STENT PLACEMENT Left 10/2007 PHU to Prox Rt PAV, mid-dist RCA CORONARY ANGIOPLASTY WITH STENT PLACEMENT Left 03/2009 PHU to mid RCA CORONARY ANGIOPLASTY WITH STENT PLACEMENT Left 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 RCA CORONARY ANGIOPLASTY WITH STENT PLACEMENT Left 10/2013 PHU to prox & mid RCA CORONARY ANGIOPLASTY WITH STENT PLACEMENT Left 12/2007 PHU to LAD CORONARY ANGIOPLASTY WITH STENT PLACEMENT Bilateral 03/17/2021 Phu to the Mid RCA, and the Distal RCA CORONARY ANGIOPLASTY WITH STENT PLACEMENT Left 12/2012 PHU to mid RCA & prox-mid Rt GRACE [...] abnormalities. Last cardiac catheterization: 03/01/2023 Conclusion Impression: 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 of mid RCA that was previously treated [...] added Assessment and Plan: 1. CAD in [place] artery Status post left heart cath on March 01, 2023. This demonstrated occlusion of his right coronary artery that was previously stented. He had now developed left to right collateral circulation. [id number] mg twice a day was added. This [...] will continue minoxidil half a tablet twice aday as well as metoprolol 25 mg twice [...] in approximately 2 weeks. documented in this [facility]10-26-[facility]23 Instructions* Patient Instructions* DANIELLE Whitehead CNP - 03/18/2023 11:00 AM EDT Resume Amiodarone 200 mg daily Increase ranexa to 1000 mg twice day Call me with the date of the upper GI. documented in this [facility]10-09-2023 Hospital Discharge instructions* Discharge Instructions* Amelia Gilbert RN - 03/01/2023 10:32 AM EDT Call your doctor with any medication questions or if you notice any side effects from your medications. If you are unable to fill your medications, please call your [facility] [employer] immediately. The office number is located with [...] against the puncture site and your finger againstthe back of the wrist for 10 minutes, if BLEEDING continues CALL 911. OK to shower. No tub baths, swimming pools or hot tub soaking for three days. Wash site daily with soap and water, dry gently. The healing wound should remain soft and dry. Keepsite clean and dry, no soaking of wrist [...] be gone by tomorrow. documented in this [facility]-09-2023 Note* Pre-Sedation Documentation - Gabino Louie DO - 03/01/2023 7:41 AM EDT Sedation Plan ASA class 3 - patient with severe systemic disease Mallampati class: IV - only hard palate visible. Sedation plan: local anesthesia and minimal sedation Risks, benefits, and alternatives discussed with patient and sibling. Plan discussed with attending. Immediate reassessment prior to sedation: Patient's status reviewed and vital signs assessed; acceptable to perform procedure and proceed to administer sedation as planned. [facility] Phone: [phone] Note* Pre-Sedation Documentation - Gabino Louie DO - 03/01/2023 7:41 AM EDT Sedation Plan ASA class 3 - patient with severe systemic disease Mallampati class: IV - only hard palate visible. Sedation plan: local anesthesia and minimal sedation Risks, benefits, and alternatives discussed with patient and sibling. Plan discussed with attending. Immediate reassessment prior to sedation: Patient's status reviewed and vital signs assessed; acceptable to perform procedure and proceed to administer sedation as planned. [facility] Work Phone: [phone] Miscellaneous Notes* Pre-Sedation Documentation - Gabino LouieDO - 03/01/2023 7:41 AM EDT Sedation Plan ASA class 3 - patient [...] administer sedation as planned. documented in this [facility]10-02-2023 History of Present illness Narrative* Zoie Gonzales MD - 02/22/2023 1:30 PM EDT [facility] Cardiology [facility] [address] [facility] [address] Dept: [phone] Dept Visit type: Established : 1955 Chief Complaint: Chief Complaint Patient presents with Follow-up History of Present Illness: Shannon Olson is a 67 y.o. male Today I [...] medical therapy and despite this continues to bequite disabled with angina. Past Medical History: Past [...] in prox, mid & distal RCA, patent stentsin med LCx. Findings unchanged from previous study. 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) ([facility]) 12/2012 NSTEMI (non-ST elevated myocardial infarction) ([facility]) ([facility]) 05/2014 Obesity Old PA (myocardial infarction) HIPOILTO (obstructive sleep apnea) HIPOLITO on CPAP PAF (paroxysmal atrial fibrillation) ([facility]) Rheumatoid arthritis(714.0) ([facility]) ST segment elevation myocardial infarction (STEMI) of anterolateral wall, subsequent [facility] care [facility] [facility]) ([facility]) TIA (transient ischemic attack) Past Surgical History Past Surgical History: Procedure Laterality Date CAPSULOTOMY, HAND 05/07/2016 CARDIAC PROCEDURE Left 05/2015 CARDIAC PROCEDURE Left 06/03/2017 CARDIAC PROCEDURE Bilateral 01/2010 CARDIAC PROCEDURE Left 09/05/2019 PCI to distal RCA and PL branch CHOLECYSTECTOMY 10/30/2019 CORONARY ANGIOPLASTY WITH STENT PLACEMENT Left 11/2006 restent RCA, PHU to CX CORONARY ANGIOPLASTY WITH STENT PLACEMENT Left 05/2014 PTCA /cuttung balloon to instent restenosis RCA CORONARY ANGIOPLASTY WITH STENT PLACEMENT Left 10/2006 DESto prox Rt PAV, mid & dist RCA CORONARY ANGIOPLASTY WITH STENT PLACEMENT Left 11/2014 PHU to RCA CORONARY ANGIOPLASTY WITH STENT PLACEMENT Left 10/2007 PHU to Prox Rt PAV, mid-dist RCA CORONARY ANGIOPLASTY WITH STENT PLACEMENT Left 03/2009 PHU to mid RCA CORONARY ANGIOPLASTY WITH STENT PLACEMENT Left 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 RCA CORONARY ANGIOPLASTY WITH STENT PLACEMENT Left 10/2013 PHU to prox & mid RCA CORONARY ANGIOPLASTY WITH STENT PLACEMENT Left 12/2007 PHU to LAD CORONARY ANGIOPLASTY WITH STENT PLACEMENT Bilateral 03/17/2021 Phu to the Mid RCA, and the Distal RCA CORONARY ANGIOPLASTY WITH STENT PLACEMENT Left 12/2012 PHU to mid RCA & prox-mid Rt GRACE [...] mg) by mouth Nightly., Disp: 30 tablet, Rfl:1 torsemide (Demadex) 20 MG tablet, Take 1 tablet (20 mg) by mouth daily. Patient was also instructedto take additional 20 mg torsemide, if weight gain of more than 2 pounds in 1 day., Disp: 30 tablet, Rfl: 1 spironolactone (Aldactone) 25 MG tablet, Take 1 tablet (25 mg) by mouth 2 times daily. (Patient nottaking: Reported on 02/02/2023), Disp: 180 tablet, Rfl: [...] rhythm with small inferior Q waves consistent withhis prior inferior infarction. Laboratory Tests: Lab Results [...] and Plan: 1. Atherosclerotic heart disease of [place] coronary artery with other forms of angina pectoris ([facility]) 2. NSTEMI (non-ST elevated myocardial infarction) ([facility]/HCC) ([facility]) 3. Hypertension, unspecified type 4. PAF (paroxysmal atrial fibrillation) ([facility]) My summary and recommendation today is to continue with his present medical program. We will schedule an elective catheterization to exclude new left coronary artery stenosis which may be responsiblefor his angina. Given the fact he had a cath done last year and was doing well until recently raises the suspicion that there is new left coronary disease. I discussed this in detail with him today here in the office. He is willing to proceed with an outpatient cath. documented in this encounterSLutheran [id number] Telephone encounter Note* Telephone Encounter - Renate Duke RN - 02/10/2023 12:20 PM EDT PC to pharmacy. New Rx was sent in yesterday for patient to take two 60 mg tablets daily but quantity sent was only 90. Ok to dispense 180 tablets [id number] Miscellaneous Notes* Telephone Encounter - Renate Duke RN - 02/10/2023 12:20 PM EDT PC to pharmacy. New Rx was sent in yesterday for patient to take two 60 mg tablets daily but quantity sent was only 90. Ok to dispense 180 tablets * Telephone Encounter - Tatum Alvarado - 02/10/2023 11:29 AM EDT [facility] requesting clarification on Imdur [phone] * Telephone Encounter - Renate Duke RN - 02/09/2023 4:59 PM EDT PC to patient with medication recommendations. He verbalized understanding * Telephone Encounter - DANIELLE Oscar CNP - 02/09/2023 4:21 PM EDT Thanks for the update. Have him increase Imdur to 120 mg once daily and see if any improvement. Monitor blood pressure and let us know if too low. * Telephone Encounter - Jenniffer Carrasquillo - 02/09/2023 2:03 PM EDT Patient stated he has not noticed much of a difference being on the protonix not sure if just not been on it long enough and just wanted to give a call in please advise documented in this [facility]09-20-2023 Telephone encounter Note* Telephone Encounter - Tatum Alvarado - 02/10/2023 11:29 AM EDT [facility] requesting clarification on Imdur [phone] [facility] [id number] Telephone encounter Note* Telephone Encounter - Renate Duke RN - 02/09/2023 4:59 PM EDT PC to patient with medication recommendations. He verbalized understanding [facility] [id number] Telephone encounter Note* Telephone Encounter - DANIELLE Oscar CNP - 02/09/2023 4:21 PM EDT Thanks for the update. Have him increase Imdur to 120 mg once daily and see if any improvement. Monitor blood pressure and let us know if too low. [place] [id number] Telephone encounter Note* Telephone Encounter - Jenniffer Carrasquillo - 02/09/2023 2:03 PM EDT Patient stated he has not noticed much of a difference being on the protonix not sure if just not been on it long enough and just wanted to give a call in please advise [facility] [id number] History of Present illness Narrative* DANIELLE Oscar CNP - 02/02/2023 8:30 AM EDT Images from the original note were not included. [facility] Cardiovascular Medicine [facility] [address] [address] Dept: [phone] Dept Loc: [phone] DATE of SERVICE: 02/02/2023 DATE of : 1955 PRIMARY CARE PHYSICIAN: Finn Ferrell MD Visit type: ESTABLISHED Chief Complaint: Chief Complaint Patient presents with Shortness of Breath A lot Chest Pain May be due to acid reflux Dizziness Once in awhile Assessment and Plan 1. WATTS (dyspnea on exertion) Stable at this juncture. No signs of volume overload at this juncture 2. CAD in [place] artery New LBBB on ECG with symptoms of exertional chest pain that tends to be worse after eating. Will add PPI and reassess symptoms (via phone) in one week. If no change, increase long acting nitrates anddetermine if symptoms resolve. Will plan followup with Dr Gonzales to reassess. Recent COVID - consider CTA of chest if symptoms persist (PE?) 3. PAF (paroxysmal atrial fibrillation) (CMS/HCC) (HCC) In SR on Amiodarone 4. [facility] current use of anticoagulant Recently treated for [...] Gonzales. Subjective History of Present Illness: Shannon Olson is a 67 y.o. male followed by Dr Gonzales with a history of CAD, COPD, PAF with chronicOAC, HLP, and HTN. HIPOLITO for which he [...] patent LAD and LCx stents with new 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 of mRCA (ISR). L-R collaterals noted and [...] Past Medical History: Diagnosis Date Angina pectoris ([facility]) Anxiety Arrhythmia A-fib Asthma CAD (coronary artery disease) Cerebral artery occlusion with cerebral infarction ([facility]) COPD (chronic obstructive pulmonary disease) ([facility]) Depression WATTS (dyspnea on exertion) Fatigue GERD (gastroesophageal reflux disease) History of cardioversion 05/07/2016 Successful conversion of a-fib to SR History of left heart catheterization 05/07/2016 60% stenosis right posterior descending, patent stents in prox, mid & distal RCA, patent stentsin med LCx. Findings unchanged from previous study. 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) ([facility]) 12/2012 NSTEMI (non-ST elevated myocardial infarction) ([facility]) ([facility]) 05/2014 Obesity Old PA (myocardial infarction) HIPOLITO (obstructive sleep apnea) HIPOLITO on CPAP PAF (paroxysmal atrial fibrillation) ([facility]) ([facility]) Rheumatoid arthritis(714.0) ([facility]) ST segment elevation myocardial infarction (STEMI) of anterolateral wall, subsequent episode of care ([facility]) ([facility]) TIA (transient ischemic attack) Past Surgical History Past Surgical History: Procedure Laterality Date CAPSULOTOMY, HAND 05/07/2016 CARDIAC PROCEDURE Left 05/2015 CARDIAC PROCEDURE Left 06/03/2017 CARDIAC PROCEDURE Bilateral 01/2010 CARDIAC PROCEDURE Left 09/05/2019 PCI to distal RCA and PL branch CHOLECYSTECTOMY 10/30/2019 CORONARY ANGIOPLASTY WITH STENT PLACEMENT Left 11/2006 restent RCA, PHU to CX CORONARY ANGIOPLASTY WITH STENT PLACEMENT Left 05/2014 PTCA /cuttung balloon to instent restenosis RCA CORONARY ANGIOPLASTY WITH STENT PLACEMENT Left 10/2006 DESto prox Rt PAV, mid & dist RCA CORONARY ANGIOPLASTY WITH STENT PLACEMENT Left 11/2014 PHU to RCA CORONARY ANGIOPLASTY WITH STENT PLACEMENT Left 10/2007 PHU to Prox Rt PAV, mid-dist RCA CORONARY ANGIOPLASTY WITH STENT PLACEMENT Left 03/2009 PHU to mid RCA CORONARY ANGIOPLASTY WITH STENT PLACEMENT Left 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 RCA CORONARY ANGIOPLASTY WITH STENT PLACEMENT Left 10/2013 PHU to prox & mid RCA CORONARY ANGIOPLASTY WITH STENT PLACEMENT Left 12/2007 PHU to LAD CORONARY ANGIOPLASTY WITH STENT PLACEMENT Bilateral 03/17/2021 Phu to the Mid RCA, and the Distal RCA CORONARY ANGIOPLASTY WITH STENT PLACEMENT Left 12/2012 PHU to mid RCA & prox-mid Rt GRACE [...] 9-1-1 immediately., Disp: 25 tablet, Rfl: 3 rosuvastatin (Crestor) 40 MG tablet, Take 1 tablet (40 mg) by mouth Nightly., Disp: 30 tablet, Rfl:1 torsemide (Demadex) 20 MG tablet, Take 1 tablet (20 mg) by mouth daily. Patient was also instructedto take additional 20 mg torsemide, if weight [...] mg) by mouth 2 times daily. (Patient nottaking: Reported on 02/02/2023), Disp: 180 tablet, Rfl: [...] QT Interval 385 QTC Interval 445 P [place] 35 QRS [place] 25 T Wave Free[place] 19 SD Interval 174 Impression Sinus rhythm Inferior infarct, [...] to revascularise the mid RCA instent restenosis 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. IMPRESSIONS: 1. Patent stent in proximal LAD. 2. Patent stent in proximal-mid LCx. 3. Mid RCA instent restenosis with 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 and left to right collaterals. 4. Unsuccessful attempt to revascularize mid RCA instent restenosis 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. Guidewire was passed across the occlusion and [...] access care. 5. Follow up with primary printed circuit board panels trimmer as outpatient in one week. Kate Pelaez, MSN, LABOR TRAINING MANAGER-, [facility] Cardiology-[address] [place] [address] p [phone] f [phone] [email or web address] documented in this encounterSLutheran [id number] Telephone encounter Note* Telephone Encounter - Tatum Alvarado - 01/29/2023 1:49 PM EDT Patient scheduled Danisha 8 :30 am [facility] [id number] Miscellaneous Notes* Telephone Encounter - Tatum Alvarado - 01/29/2023 1:49 PM EDT Patient scheduled Danisha Tues 8 :30 am * Telephone Encounter - DANIELLE Whitehead CNP - 01/29/2023 1:09 PM EDT PC to patient, His Hbg is 10.9, BUN 42, Creatinine 1.88, He is still having SOB and chest pain. He does have angina, that occurs with exertional. He denies any black stools. He looks a bit on the dryside, I will ask him to to hold his aldactone and torsemide tomorrow, and come into the office on Wednesday at 8:30 am. He dose have iron at home and will take it twice a day for now. He is note sure what his HR is ,but it is not fast. Last weight was 292lbs. * Telephone Encounter - Trena Pratt - 01/29/2023 10:58 AM EDT Labs received,place on desk and gave to MA to enter. * Telephone Encounter - DANIELLE Whitehead CNP - 01/28/2023 5:41 PM EDT PC to patient, still do not have lab results, He feels the same, and is doing ok , if he does not push himself. I will have office call again tomorrow, and page me with the results. * Telephone Encounter - Trena Pratt - 01/27/2023 9:39 AM EDT Lab order faxed to [facility] [phone]. * Telephone Encounter - DANIELLE Whitehead CNP - 01/26/2023 4:03 PM EDT PC to patient. He is recovering from [...] accident. Will start with Stat CBC and BMPat [facility] tomorrow. Will call once results are back. * Telephone Encounter - Renate Duke RN - 01/26/2023 3:13 PM EDT PC to patient. He states he messed [...] morning. Will have NALDO review for recommendations * Telephone Encounter - Trena Pratt - 01/26/2023 1:45 PM EDT Patient has not been feeling quit right lately since he's had to start on strong antibiotics. He isfeeling fatigued and light chest discomfort with little exertion. documented in this encounterSLutheran [id number] Telephone encounter Note* Telephone Encounter - DANIELLE Whitehead CNP - 01/29/2023 1:09 PM EDT PC to patient, His Hbg is 10.9, BUN 42, Creatinine 1.88, He is still having SOB and chest pain. He does have angina, that occurs with exertional. He denies any black stools. He looks a bit on the dryside, I will ask him to to hold his aldactone and torsemide tomorrow, and come into the office on Wednesday at 8:30 am. He dose have iron at home and will take it twice a day for now. He is note sure what his HR is ,but it is not fast. Last weight was 292lbs. [facility] [id number] Telephone encounter Note* Telephone Encounter - Trena Pratt - 01/29/2023 10:58 AM EDT Labs received,place on desk and gave to MA to enter. [facility] [id number] Telephone encounter Note* Telephone Encounter - DANIELLE Whitehead CNP - 01/28/2023 5:41 PM EDT PC to patient, still do not have lab results, He feels the same, and is doing ok , if he does not push himself. I will have office call again tomorrow, and page me with the results. [facility] [id number] Telephone encounter Note* Telephone Encounter - Renate Duke RN - 01/27/2023 2:53 PM EDT ISACC with you 12/24/22 [place] [id number] Miscellaneous Notes* Telephone Encounter - Renate Duke RN - 01/27/2023 2:53 PM EDT ISACC with you 12/24/22 documented in this encounterSLutheran [id number] Telephone encounter Note* Telephone Encounter - Trena Pratt - 01/27/2023 9:39 AM EDT Lab order faxed to [facility] [phone]. [facility] [id number] Telephone encounter Note* Telephone Encounter - DANIELLE Whitehead CNP - 01/26/2023 4:03 PM EDT PC to patient. He is recovering from [...] accident. Will start with Stat CBC and [facility] tomorrow. Will call once results are back. [facility] [id number] Telephone encounter Note* Telephone Encounter - Renate Duke RN - 01/26/2023 3:13 PM EDT PC to patient. He states he messed [...] morning. Will have NALDO review for recommendations [facility] [id number] Telephone encounter Note* Telephone Encounter - Trena Pratt - 01/26/2023 1:45 PM EDT Patient has not been feeling quit right lately since he's had to start on strong antibiotics. He isfeeling fatigued and light chest discomfort with little exertion. [facility] [id number] Telephone encounter Note* Telephone Encounter - DANIELLE Whitehead CNP - 01/05/2023 12:46 PM EDT Thanks for the update, probably best to avoid further complications. [facility] [id number] Miscellaneous Notes* Telephone Encounter - DANIELLE Whitehead CNP - 01/05/2023 12:46 PM EDT Thanks for the update, probably best to avoid further complications. * Telephone Encounter - Renate Duke RN - 01/04/2023 4:25 PM EDT PC to patient. He went to [facility] Wednesday and was given antibiotics for this. He saw the doctor today and it was decided to make a small incicion to drain it. Patient states numerous blood clots were removed. He did not have stop the Eliquis. Will update provider * Telephone Encounter - Trena Pratt - 01/04/2023 3:00 PM EDT Patient called stating he had surgery to remove blood clots. He wanted to update Dr. Bui. * Telephone Encounter - DANIELLE Whitehead CNP - 01/01/2023 11:19 AM EDT PC to patient with BMP results, he is feeling good, except he did injured his leg, now has a hematoma, and ATB. BMP stable. Advised to call us if his hematoma does not resolve, we may have to hold his Apixiban a few days. He will follow-up with PCP on Wednesday. documented in this [facility]08-14-2023 Telephone encounter Note* Telephone Encounter - Renate Duke RN - 01/04/2023 4:25 PM EDT PC to patient. He went to [facility] Wednesday and was given antibiotics for this. He saw the doctor today and it was decided to make a small incicion to drain it. Patient states numerous blood clots were removed. He did not have stop the Eliquis. Will update provider [facility] [id number] Telephone encounter Note* Telephone Encounter - Trena Pratt - 01/04/2023 3:00 PM EDT Patient called stating he had surgery to remove blood clots. He wanted to update Dr. Bui. [facility] [id number] Telephone encounter Note* Telephone Encounter - DANIELLE Whitehead CNP - 01/01/2023 11:19 AM EDT PC to patient with BMP results, he is feeling good, except he did injured his leg, now has a hematoma, and ATB. BMP stable. Advised to call us if his hematoma does not resolve, we may have to hold his Apixiban a few days. He will follow-up with PCP on Wednesday. [facility] [id number] Hospital Discharge instructions Additional Instructions Please wear your Efrain wrap along your right harrison to compress the hematoma and prevent further swelling. Continue to ice the area for the next 3 to 4 days and then change to warm compresses to help dissolve any remaining blood. If you have any further concerns please return for repeat evaluationWKindred Healthcare Work Phone: [phone] 538-396407-18-2023 Nurse Note* Nakita Zaragoza RN - 12/08/2022 4:28 PM EDT Education provided to patient on discharge instructions, how to followup, lab work that needs to becompleted, and new medications. Medication list reviewed with patient. IV removed from patient. All questions and concerns answered at this time. Patient states he will have a ride around 5pm [facility] [id number] Nurse Note* Nakita Zaragoza RN - 12/08/2022 4:28 PM EDT Education provided to patient on discharge instructions, how to followup, lab work that needs to becompleted, and new medications. Medication list reviewed with patient. IV removed from patient. All questions and concerns answered at this time. Patient states he will have a ride around 5pm documented in this encounterSLutheran [id number] History of Present illness Narrative* Javier Benton MD - 12/08/2022 2:41 PM EDT [facility] Nephrology Progress Note Subjective: 67 [...] Sitting Pulse: 73 74 78 64 Resp: 16 Temp: 36.8 C (98.2 F) 36.3 [...] follow the patient along. Javier Benton MD [facility] Office: [phone] * DANIELLE Whiethead CNP - 12/08/2022 12:[address] Gonzales, patient advised to weigh himself and call us with weight gain of 3-5 lbs in 3-5 days. He will likely need higher dose of diuretics, once recovered from COVID. F/U appt arranged. * Manuel Edgar MD - 12/08/2022 9:09 AM EDT Images from the original note were not included. Hospitalist Progress Note 12/08/2022 9:09 AM [phone]: Please page me for patient care issues. [phone]: Please page [facility] night Hospitalist for any issues. Subjective: Admit Date: 12/06/2022 PCP: Finn Ferrell MD Room#: 1C-131/1C-131 A Interval History: Patient [...] GERD, hypertension, hyperlipidemia, chronic kidney disease stage IIIwith baseline creatinine of 1.5 Patient was sitting [...] no evidence of hydronephrosis. Nonspecific mild bilateral perinephricedema noted. Benign-appearing bilateral renal cortical cysts noted. Past medical history : Past Medical History: Diagnosis Date Angina pectoris ([facility]) Anxiety Arrhythmia A-fib Asthma CAD (coronary artery disease) Cerebral artery occlusion with cerebral infarction ([facility]) COPD (chronic obstructive pulmonary disease) ([facility]) Depression WATTS (dyspnea on exertion) Fatigue GERD (gastroesophageal reflux disease) History of cardioversion 05/07/2016 Successful conversion of a-fib to SR History of left heart catheterization 05/07/2016 60% stenosis right posterior descending, patent stents in prox, mid & distal RCA, patent stentsin med LCx. Findings unchanged from previous study. 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 [facility] current use of antiarrhythmic drug [facility] current use of anticoagulant NSTEMI (non-ST elevated myocardial infarction) ([facility]) ([facility]) 12/2012 NSTEMI (non-ST elevated myocardial infarction) ([facility]) ([facility]) 05/2014 Obesity Old PA (myocardial infarction) HIPOLITO (obstructive sleep apnea) HIPOLITO on CPAP PAF (paroxysmal atrial fibrillation) ([facility]) ([facility]) Rheumatoid arthritis(714.0) ([facility]) ST segment elevation myocardial infarction (STEMI) of anterolateral wall, subsequent episode of care ([facility]) ([facility]) TIA (transient ischemic attack) Adult diet Regular; No Added Salt (3-4 gm) @[id number]@ Medications: amiodarone, 200 mg, Oral, Daily apixaban, [...] Position: Sitting) Pulse 74 Temp 36.3 C (97.3F) (Temporal) Resp 18 Wt (!) 310 lb [...] team DC home today. Patients family- Reynold [phone]- was informed about all work up and treatment plan Toxic drug monitoring/narrow therapeutic index drug monitoring : # Drug name : none # Route administered : # Method of monitoring : Extended Emergency Contact Information Primary Emergency Contact: Harvinder Olson Relation: Relative Secondary Emergency Contact: Reynold Olson Mobile Relation: Brother Advance Directive: Full Code Discharge planning: DC home today NOTE: This report was transcribed using voice recognition software. Every effort was made to ensureaccuracy; however, inadvertent computerized buffing turner and counter errors may be present. Manuel Edgar MD Division of Hospitalist Medicine [facility] PAGER: Epic chat * Alayna Arthur - 12/08/2022 7:52 AM EDT .Nutrition rescreen completed. Chart reviewed. Patient to be monitored and followed by the diet electrical engineering technician. TAZ Murguia * DANIELLE Quinn CNP - 12/07/2022 10:10 AM EDT [facility] Cardiology /Electrophysiology Progress Note Reason for consult: Chest pain HPI / Interval History: Shannon Olson is a 67 y[address] known to Dr. Zoie Gonzales with hx of complex CAD and prior stenting ofthe LAD, Lcx, and RCA. His last LHC was 12/01/21 and at that time was noted to have midRCA instent restenosis with 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 and L->R collaterals and had unsuccessful attempt [...] down from 1.53). He was transferred from [facility] here 12/06/22 for chest pain. There, [...] a dry BM yesterday. He states that whenhe initially presented to [facility] that he had intense chest tightness [...] been drinking several glasses of water per day.He has had chronic, stable trace BLLE edema. No PND, orthopnea, palpitations, or syncope. Currently, he denies any SOB or chest pain. Assessment/Plan Chest pain in the setting of known complex CAD with RCA 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 and multiple prior PCI: Stable, no angina now. EKG reviewed from today and unchanged from previous. No ischemic changes. Troponin I here negative x2. However, Hs Troponins at [facility] were elevated but insignificant (reviewed with Dr. Gonzales). It is possible that his symptoms and mild rise in troponin at outside facility secondary to COVID-19 infection. Stop ASA as he is already on eliquis for afib. Continue plavix. Do not recommend triple therapy. Reports compliance with his lipitor despite uncontrolled HLD, see #3. Continue imdur 60mg daily and lopressor 50 mg BID. BP soft earlier this AM limiting optimizing his BB or imdur dosages. Once recovered from acute illness, would reassess angina as OP to determine if we need to increase imdur or add ranexa. No ischemic work-up at this time. HTN: Initially uncontrolled but now improved with an isolated episode of hypotension earlier today.BP now 115/56. Would continue to monitor. Goal [...] exam.Torsemide and aldactone both held until renal fxnback at baseline and ok to resume per [...] BMP to be done in about 1 weekto follow his renal fxn and electrolytes. May [...] Sitting Pulse: 88 70 92 86 Resp: Temp: 37.6 C (99.6 F) 36.6 C [...] in the proximal right coronary. Balloon angioplasty. SUMMARY: 1. 66 M with prior PCI [...] to revascularise the mid RCA instent restenosis 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. IMPRESSIONS: 1. Patent stent in proximal LAD. 2. Patent stent in proximal-mid LCx. 3. Mid RCA instent restenosis with 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 and left to right collaterals. 4. Unsuccessful attempt to revascularize mid RCA instent restenosis 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. Guidewire was passed across the occlusion and [...] access care. 5. Follow up with primary printed circuit board panels trimmer as outpatient in one week. Telemetry findings reviewed: NSR with occasional PVCs DANIELLE Quinn CNP Date Of Service 12/07/2022 * Manuel Edgar MD - 12/07/2022 8:21 AM EDT Images from the original note were not included. Hospitalist Progress Note 12/07/2022 8:21 AM [phone]: Please page me for patient care issues. [phone]: Please page [facility] night Hospitalist for any issues. Subjective: Admit Date: 12/06/2022 PCP: Finn Ferrell MD Room#: 1C-131/1C131 A Interval History: Patient [...] GERD, hypertension, hyperlipidemia, chronic kidney disease stage IIIwith baseline creatinine of 1.5 Presented to [facility] following chest pain. Patient was complaining [...] hemoglobin 11.9 High sensitive troponin done at [facility] was 175 Past medical history : Past Medical History: Diagnosis Date Angina pectoris ([facility]) Anxiety Arrhythmia A-fib Asthma CAD (coronary artery disease) Cerebral artery occlusion with cerebral infarction ([facility]) COPD (chronic obstructive pulmonary disease) ([facility]) Depression WATTS (dyspnea on exertion) Fatigue GERD (gastroesophageal reflux disease) History of cardioversion 05/07/2016 Successful conversion of a-fib to SR History of left heart catheterization 05/07/2016 60% stenosis right posterior descending, patent stents in prox, mid & distal RCA, patent stentsin med LCx. Findings unchanged from previous study. 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) ([facility]) 12/2012 NSTEMI (non-ST elevated myocardial infarction) ([facility]) ([facility]) 05/2014 Obesity Old PA (myocardial infarction) HIPOLITO (obstructive sleep apnea) HIPOLITO on CPAP PAF (paroxysmal atrial fibrillation) ([facility]) ([facility]) Rheumatoid arthritis(714.0) ([facility]) ST segment elevation myocardial infarction (STEMI) of anterolateral wall, subsequent episode of care ([facility]) ([facility]) TIA (transient ischemic attack) Adult diet Regular; No Added Salt (3-4 gm) @[id number]@ Medications: amiodarone, 200 mg, Oral, Daily amLODIPine, [...] Emergency Contact Information Primary Emergency Contact: Harvinder Olson Relation: Relative Secondary Emergency Contact: Reynold Olson Mobile Relation: Brother Advance Directive: Full Code Discharge planning: NOTE: This report was transcribed using voice recognition software. Every effort was made to ensureaccuracy; however, inadvertent computerized buffing turner and counter errors may be present. Manuel Edgar MD Division of Hospitalist Medicine [facility] PAGER: Epic chat Addendum Message from cardiology nurse practitioner-Dr. Gonzales wanted to continue patient on Aldactone/torsemide Plan Nephrology team following BMP panel in a.m. documented in this [facility]07-18-2023 Hospital course Narrative* Manuel Edgar MD - 12/08/2022 9:35 AM EDT Discharge Summary Shannon Olson : 1955 ADMIT DATE: 12/06/2022 DISCHARGE DATE: 12/08/2022 PRIMARY CARE PHYSICIAN: Finn Ferrell VISIT STATUS: Admission CODE STATUS: Full Code [...] GERD, hypertension, hyperlipidemia, chronic kidney disease stage IIIwith baseline creatinine of 1.5 Presented to [facility] following chest pain.Patient was complaining of dry cough for last 3 days, and 1 episode of fever spike during hospitalization stay. Work-up during this admission showedpotassium of 4.8, LFT panel normal, creatinine of 2.1, hemoglobin of 11.9, high sensitive troponin done at [facility] was 175, patient was transferred to [facility] for further evaluation. Repeat EKG showed sinus [...] no relief after 3 tablets, call 01-22- immediately. What changed: Another medication with the [...] Complexity: follow up within 7-14 calendar days (70804) [] Severe Complexity: follow up within 7 calendar days (45999) FOLLOW UP TESTING, PENDING RESULTS OR REFERRALS AT TRANSITIONAL CARE VISIT: [] Yes [] No PENDING STUDIES: DISPOSITION: Home FACILITY/HOME CARE AGENCY NAME: [facility] [address] [facility] [address] [facility] [id number] Schedule an appointment as soon as possible for a visit on 12/11/2022 CBC, BMP panel on 12/11/2022 and 12/14/2022. Zioe Gonzales MD [address] [facility] [address] Schedule an appointment as soon as possible for a visit in 2 week(s) Javier Benton MD [address] [facility] [address] [facility] [phone] Schedule an appointment as soon as possible for a visit in 1 week(s) Chris Boyce MD [address] [facility] [address] [facility] [address] Follow up on 02/24/2023 INSTRUCTIONS TO MA/SW: [...] frame. DISCHARGE TIME: > 30 minutes SIGNED: Manuel Edgar MD 12/08/2022, 9:35 AM documented in [facility]07-17-2023 Note* Care Coordination - Lore Florian RN - 12/07/2022 11:11 AM EDT Care Managment Initial Assessment Date: 12/07/2022 Patient Name: Shannon Olson : 1955 Patient Information Source of Information: Patient Cognition/Language: WFL - Within Functional Limits Permission given to speak with patient payroll representative/caregiver as indicated: Yes Confirmation of Payer with patient/family: Yes Payer Name: medicare [place]: No Confirmation of Primary Care Physician: Confirmed PCP Name: Dr. Berlin Ferrell Seen in last 2 years?: Yes Primary Caregiver: Self If assistance needed, confirmed caregiver ready, willing and able to care for patient at discharge:Yes Confirmed with: Living Arrangements Current Residence: House [...] Daily Living Prescription Coverage: Yes Pharmacy Used: [email or web address] Medication Management: Independent Transportation/Shopping: Independent Transportation Mode: [...] time. TCC to follow. Lore Florian RN [id number] Note* Care Coordination - Lore Florian RN - 12/07/2022 11:11 AM EDT Care Managment Initial Assessment Date: 12/07/2022 Patient Name: Shannon Olson : 1955 Patient Information Source of Information: Patient Cognition/Language: WFL - Within Functional Limits Permission given to speak with patient payroll representative/caregiver as indicated: Yes Confirmation of Payer with patient/family: Yes Payer Name: medicare : No Confirmation of Primary Care Physician: Confirmed PCP Name: Dr. Berlin Ferrell Seen in last 2 years?: Yes Primary Caregiver: Self If assistance needed, confirmed caregiver ready, willing and able to care for patient at discharge:Yes Confirmed with: Living Arrangements Current Residence: House [...] Yes Pharmacy [facility] Medication Management: Independent Transportation/Shopping: Independent Transportation Mode: [...] time. TCC to follow. Lore Florian RN [id number] Miscellaneous Notes* Care Coordination - Lore Holly RN - 12/07/2022 11:11 AM EDT Care Managment Initial Assessment Date: 12/07/2022 Patient Name: Shannon Olson : 1955 Patient Information Source of Information: Patient Cognition/Language: WFL - Within Functional Limits Permission given to speak with patient payroll representative/caregiver as indicated: Yes Confirmation of Payer with patient/family: Yes Payer Name: medicare [place]: No Confirmation of Primary Care Physician: Confirmed PCP Name: Dr. Berlin Ferrell Seen in last 2 years?: Yes Primary Caregiver: Self If assistance needed, confirmed caregiver ready, willing and able to care for patient at discharge:Yes Confirmed with: Living Arrangements Current Residence: House [...] Yes Pharmacy Used: [facility] Medication Management: Independent Transportation/Shopping: Independent Transportation Mode: [...] time. TCC to follow. Lore Florian RN * Care Plan - Javier Benton MD - 12/07/2022 8:43 AM EDT Consult noted. Full note to follow. Thank you Javier Benton documented in this [facility]07-17-2023 Consult note* Javier Benton MD - 12/07/2022 10:52 AM EDTAssociated Order(s): IP CONSULT TO NEPHROLOGY [facility] Nephrology Consult Note Reason for Consult: ALBINA/CKD Requesting Physician: Manuel Edgar MD Chief Complaint: Chest pain History [...] GERD, hypertension, hyperlipidemia, chronic kidney disease stage IIIwith baseline creatinine of 1.5, presented from an outside emergency room with chest pain. He reports he was in his usual state of health he does have some baseline dyspnea on exertion. However, he developed worsening chest pain was seen at the [facility] ED found to have elevated troponins now transferred to [facility]. Currently patient has no chest pain. Nephrology is asked to see the patient for ALBINA/CKD. Patient currently has a scr level of 2.12, previously 1.39 and has a baseline of ~1.2-1.5. He is prescribed lisinopril, torsemide and spironolactone outpatient. Appears to be having some fluctuations in hemodynamics related to blood pressure. Somerelative hypotension is noted as well. No evidence of CYNDIE. MILA c/w mild bilateral perinephric edema with cysts. UOP is not well documented. Patient found to have COVID infection since. Denies any significant shortness of breath. Denies noticing decreased urine output. Denies taking NSAIDs. Imaging studies reviewed. Showed some perinephric edema. Past Medical History: Past Medical History: Diagnosis Date Angina pectoris ([facility]) Anxiety Arrhythmia A-fib Asthma CAD (coronary artery disease) Cerebral artery occlusion with cerebral infarction ([facility]) COPD (chronic obstructive pulmonary disease) ([facility]) Depression WATTS (dyspnea on exertion) Fatigue GERD (gastroesophageal reflux disease) History of cardioversion 05/07/2016 Successful conversion of a-fib to SR History of left heart catheterization 05/07/2016 60% stenosis right posterior descending, patent stents in prox, mid & distal RCA, patent stentsin med LCx. Findings unchanged from previous study. 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) ([facility]) 12/2012 NSTEMI (non-ST elevated myocardial infarction) ([facility]) ([facility]) 05/2014 Obesity Old PA (myocardial infarction) HIPOLITO (obstructive sleep apnea) HIPOLITO on CPAP PAF (paroxysmal atrial fibrillation) ([facility]) ([facility]) Rheumatoid arthritis(714.0) ([facility]) ST segment elevation myocardial infarction (STEMI) of anterolateral wall, subsequent episode of care ([facility]) ([facility]) TIA (transient ischemic attack) Past Surgical History: Past Surgical History: Procedure Laterality Date CAPSULOTOMY, HAND 05/07/2016 CARDIAC PROCEDURE Left 05/2015 CARDIAC PROCEDURE Left 06/03/2017 CARDIAC PROCEDURE Bilateral 01/2010 CARDIAC PROCEDURE Left 09/05/2019 PCI to distal RCA and PL branch CHOLECYSTECTOMY 10/30/2019 CORONARY ANGIOPLASTY WITH STENT PLACEMENT Left 11/2006 restent RCA, PHU to CX CORONARY ANGIOPLASTY WITH STENT PLACEMENT Left 05/2014 PTCA /cuttung balloon to instent restenosis RCA CORONARY ANGIOPLASTY WITH STENT PLACEMENT Left 10/2006 DESto prox Rt PAV, mid & dist RCA CORONARY ANGIOPLASTY WITH STENT PLACEMENT Left 11/2014 PHU to RCA CORONARY ANGIOPLASTY WITH STENT PLACEMENT Left 10/2007 PHU to Prox Rt PAV, mid-dist RCA CORONARY ANGIOPLASTY WITH STENT PLACEMENT Left 03/2009 PHU to mid RCA CORONARY ANGIOPLASTY WITH STENT PLACEMENT Left 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 RCA CORONARY ANGIOPLASTY WITH STENT PLACEMENT Left 10/2013 PHU to prox & mid RCA CORONARY ANGIOPLASTY WITH STENT PLACEMENT Left 12/2007 PHU to LAD CORONARY ANGIOPLASTY WITH STENT PLACEMENT Bilateral 03/17/2021 Phu to the Mid RCA, and the Distal RCA CORONARY ANGIOPLASTY WITH STENT PLACEMENT Left 12/2012 PHU to mid RCA & prox-mid Rt GRACE [...] (0.4 mg) under the tongue every 5 minutesas needed for chest pain. May repeat dose [...] by mouth Once for 1 dose. Take onthe night of your sleep study. 1 tablet [...] Appropriate mood. Data: LIVER PROFILE: Recent Labs 12/07/2217 AST 30 ALT 39 BILITOT 1.2 ALKPHOS 76 CBC: Recent Labs 12/07/2217 WBC 9.4 RBC 3.95* HGB 11.9* HCT 34.9* MCV 88.2 RDW 15.1* PLT 213 BMP: Recent Labs 12/07/2217 NA 137 K 4.8 CL 106 CO2 [...] will follow closely with you Javier Benton [id number] Consult note* Javier Benton MD - 12/07/2022 10:52 AM EDTAssociated Order(s): IP CONSULT TO NEPHROLOGY [facility] Nephrology Consult Note Reason for Consult: ALBINA/CKD Requesting Physician: Manuel Edgar MD Chief Complaint: Chest pain History [...] GERD, hypertension, hyperlipidemia, chronic kidney disease stage IIIwith baseline creatinine of 1.5, presented from an outside emergency room with chest pain. He reports he was in his usual state of health he does have some baseline dyspnea on exertion. However, he developed worsening chest pain was seen at the [facility] ED found to have elevated troponins now transferred to [facility]. Currently patient has no chest pain. Nephrology is asked to see the patient for ALBINA/CKD. Patient currently has a scr level of 2.12, previously 1.39 and has a baseline of ~1.2-1.5. He is prescribed lisinopril, torsemide and spironolactone outpatient. Appears to be having some fluctuations in hemodynamics related to blood pressure. Somerelative hypotension is noted as well. No evidence of CYNDIE. MILA c/w mild bilateral perinephric edema with cysts. UOP is not well documented. Patient found to have COVID infection since. Denies any significant shortness of breath. Denies noticing decreased urine output. Denies taking NSAIDs. Imaging studies reviewed. Showed some perinephric edema. Past Medical History: Past Medical History: Diagnosis Date Angina pectoris ([facility]) Anxiety Arrhythmia A-fib Asthma CAD (coronary artery disease) Cerebral artery occlusion with cerebral infarction ([facility]) COPD (chronic obstructive pulmonary disease) ([facility]) Depression WATTS (dyspnea on exertion) Fatigue GERD (gastroesophageal reflux disease) History of cardioversion 05/07/2016 Successful conversion of a-fib to SR History of left heart catheterization 05/07/2016 60% stenosis right posterior descending, patent stents in prox, mid & distal RCA, patent stentsin med LCx. Findings unchanged from previous study. 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) ([facility]) 12/2012 NSTEMI (non-ST elevated myocardial infarction) ([facility]) ([facility]) 05/2014 Obesity Old PA (myocardial infarction) HIPOLITO (obstructive sleep apnea) HIPOLITO on CPAP PAF (paroxysmal atrial fibrillation) ([facility]) ([facility]) Rheumatoid arthritis(714.0) ([facility]) ST segment elevation myocardial infarction (STEMI) of anterolateral wall, subsequent episode of care ([facility]) ([facility]) TIA (transient ischemic attack) Past Surgical History: Past Surgical History: Procedure Laterality Date CAPSULOTOMY, HAND 05/07/2016 CARDIAC PROCEDURE Left 05/2015 CARDIAC PROCEDURE Left 06/03/2017 CARDIAC PROCEDURE Bilateral 01/2010 CARDIAC PROCEDURE Left 09/05/2019 PCI to distal RCA and PL branch CHOLECYSTECTOMY 10/30/2019 CORONARY ANGIOPLASTY WITH STENT PLACEMENT Left 11/2006 restent RCA, PHU to CX CORONARY ANGIOPLASTY WITH STENT PLACEMENT Left 05/2014 PTCA /cuttung balloon to instent restenosis RCA CORONARY ANGIOPLASTY WITH STENT PLACEMENT Left 10/2006 DESto prox Rt PAV, mid & dist RCA CORONARY ANGIOPLASTY WITH STENT PLACEMENT Left 11/2014 PHU to RCA CORONARY ANGIOPLASTY WITH STENT PLACEMENT Left 10/2007 PHU to Prox Rt PAV, mid-dist RCA CORONARY ANGIOPLASTY WITH STENT PLACEMENT Left 03/2009 PHU to mid RCA CORONARY ANGIOPLASTY WITH STENT PLACEMENT Left 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 RCA CORONARY ANGIOPLASTY WITH STENT PLACEMENT Left 10/2013 PHU to prox & mid RCA CORONARY ANGIOPLASTY WITH STENT PLACEMENT Left 12/2007 PHU to LAD CORONARY ANGIOPLASTY WITH STENT PLACEMENT Bilateral 03/17/2021 Phu to the Mid RCA, and the Distal RCA CORONARY ANGIOPLASTY WITH STENT PLACEMENT Left 12/2012 PHU to mid RCA & prox-mid Rt GRACE [...] (0.4 mg) under the tongue every 5 minutesas needed for chest pain. May repeat dose [...] by mouth Once for 1 dose. Take onthe night of your sleep study. 1 tablet [...] negative. Physical exam: Constitutional: Vitals: 12/06/22 1917 12/06/227 12/07/22 0323 12/07/22 0741 BP: 106/66 101/52 99/54 115/56 BP Location: Left arm Right arm Patient Position: Sitting Sitting Pulse: 88 70 92 86 Resp: 24 20 19 Temp: 37.6 C (99.6 F) [...] will follow closely with you Javier Benton [facility] * Satish Rascon MD - 12/06/2022 12:49 PM EDTAssociated Order(s): IP CONSULT TO CARDIOLOGY [facility]/ Electrophysiology Consult Note Reason for Consult/Chief Complaint: Chest pain History of Present Illness: Shannon Olson is a 67 y.o. male with known complex coronary artery disease presents with an episodeof rest pain. 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 Gonzales 12/03/2022. Patient has history of [...] not improve with nitroglycerin. He presented to [facility]. While there high-sensitivity troponin was at 174 then 175 with the upper limit of normal being 80. He was then sent to [facility] for further evaluation. Presently he is pain-free. He denies any recent fevers and chills. His weight has been stable. He is in process of treating his sleep apnea. He is compliant with his medical therapy. Past Medical History: Past Medical History: Diagnosis Date Angina pectoris ([facility]) Anxiety Arrhythmia A-fib Asthma CAD (coronary artery disease) Cerebral artery occlusion with cerebral infarction ([facility]) COPD (chronic obstructive pulmonary disease) ([facility]) Depression WATTS (dyspnea on exertion) Fatigue GERD (gastroesophageal reflux disease) History of cardioversion 05/07/2016 Successful conversion of a-fib to SR History of left heart catheterization 05/07/2016 60% stenosis right posterior descending, patent stents in prox, mid & distal RCA, patent stentsin med LCx. Findings unchanged from previous study. 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) ([facility]) 12/2012 NSTEMI (non-ST elevated myocardial infarction) ([facility]) ([facility]) 05/2014 Obesity Old PA (myocardial infarction) HIPOLITO (obstructive sleep apnea) HIPOLITO on CPAP PAF (paroxysmal atrial fibrillation) ([facility]) ([facility]) Rheumatoid arthritis(714.0) ([facility]) ST segment elevation myocardial infarction (STEMI) of anterolateral wall, subsequent episode of care ([facility]) ([facility]) TIA (transient ischemic attack) Past Surgical History: Past Surgical History: Procedure Laterality Date CAPSULOTOMY, HAND 05/07/2016 CARDIAC PROCEDURE Left 05/2015 CARDIAC PROCEDURE Left 06/03/2017 CARDIAC PROCEDURE Bilateral 01/2010 CARDIAC PROCEDURE Left 09/05/2019 PCI to distal RCA and PL branch CHOLECYSTECTOMY 10/30/2019 CORONARY ANGIOPLASTY WITH STENT PLACEMENT Left 11/2006 restent RCA, PHU to CX CORONARY ANGIOPLASTY WITH STENT PLACEMENT Left 05/2014 PTCA /cuttung balloon to instent restenosis RCA CORONARY ANGIOPLASTY WITH STENT PLACEMENT Left 10/2006 DESto prox Rt PAV, mid & dist RCA CORONARY ANGIOPLASTY WITH STENT PLACEMENT Left 11/2014 PHU to RCA CORONARY ANGIOPLASTY WITH STENT PLACEMENT Left 10/2007 PHU to Prox Rt PAV, mid-dist RCA CORONARY ANGIOPLASTY WITH STENT PLACEMENT Left 03/2009 PHU to mid RCA CORONARY ANGIOPLASTY WITH STENT PLACEMENT Left 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 RCA CORONARY ANGIOPLASTY WITH STENT PLACEMENT Left 10/2013 PHU to prox & mid RCA CORONARY ANGIOPLASTY WITH STENT PLACEMENT Left 12/2007 PHU to LAD CORONARY ANGIOPLASTY WITH STENT PLACEMENT Bilateral 03/17/2021 Phu to the Mid RCA, and the Distal RCA CORONARY ANGIOPLASTY WITH STENT PLACEMENT Left 12/2012 PHU to mid RCA & prox-mid Rt GRACE [...] resp. rate 18, SpO2 97 %. @IODETAILS@ @[id number]@ Physical Exam Laboratory Tests: @[id number](WBC:5,HGB:5,HCT:5,MCV:5,PLT:5)@ Lab Results Component Value Date GLUCOSE 82 [...] known significant coronary artery disease and angina. High- sensitivity troponin slightly elevated from an outside hospital. I am unsure of the significance of that lab value. We will cycle troponins here, keep him on Plavix and apixaban and continue antianginals. He will naturally continue his beta-dlkzbym43 mg twice daily. Further recs dependent upon troponin Atrial fibrillation: He maintains amiodarone 200 mg daily and the apixaban. He does not believe theepisode this morning was secondary to transient arrhythmia. We will follow on telemetry. Congestive failure: Volume status to me seems reasonable as it was in the office with Dr. Gonzales just a few days ago. Continue home diuretics. Satish Rascon MD DATE of SERVICE: 12/06/2022 documented in this [facility]07[facility]17[facility]23 History of Present illness Narrative* Chris Boyce MD - 12/07/2022 10:39 AM EDT Images from the original note were not included. [facility]- PULMONARY AND SLEEP MEDICINE ESTABLISHED PATIENT VISIT [...] the circumstances given the patient's particular presentation atthis time. The patient has been advised of [...] patient deems either necessary. The patient stated that[facility]. If the patient is a minor, permission has been obtained bythe parent or guardian for the patient to receive medical care at this visit. History of Present Illness: Shannon Olson is a 67-year-old man with medical history [...] in the [facility] and he says he hada heart attack Fernando night. Currently tested positive for SARS-CoV-2. Reports [...] of 71% and 29% of sleep time withSPO2 less than 89%. Discussed results of the [...] 16, EPAP 10 cm H2O sent to [facility] Patient counseled on importance of adherence to PAP therapy Follow-up already scheduled for 02/24/2023 at which point we will review device download No orders of the defined types were placed in this encounter. Chris Boyce MD Pulmonary, Critical Care, and Sleep [...] Past Medical History: Diagnosis Date Angina pectoris ([facility]) Anxiety Arrhythmia A-fib Asthma CAD (coronary artery disease) Cerebral artery occlusion with cerebral infarction ([facility]) COPD (chronic obstructive pulmonary disease) ([facility]) Depression WATTS (dyspnea on exertion) Fatigue GERD (gastroesophageal reflux disease) History of cardioversion 05/07/2016 Successful conversion of a-fib to SR History of left heart catheterization 05/07/2016 60% stenosis right posterior descending, patent stents in prox, mid & distal RCA, patent stentsin med LCx. Findings unchanged from previous study. 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) ([facility]) 12/2012 NSTEMI (non-ST elevated myocardial infarction) ([facility]) ([facility]) 05/2014 Obesity Old PA (myocardial infarction) HIPOLITO (obstructive sleep apnea) HIPOLITO on CPAP PAF (paroxysmal atrial fibrillation) ([facility]) ([facility]) Rheumatoid arthritis(714.0) ([facility]) ST segment elevation myocardial infarction (STEMI) of anterolateral wall, subsequent episode of care ([facility]) ([facility]) TIA (transient ischemic attack) Past Surgical History Past Surgical History: Procedure Laterality Date CAPSULOTOMY, HAND 05/07/2016 CARDIAC PROCEDURE Left 05/2015 CARDIAC PROCEDURE Left 06/03/2017 CARDIAC PROCEDURE Bilateral 01/2010 CARDIAC PROCEDURE Left 09/05/2019 PCI to distal RCA and PL branch CHOLECYSTECTOMY 10/30/2019 CORONARY ANGIOPLASTY WITH STENT PLACEMENT Left 11/2006 restent RCA, PHU to CX CORONARY ANGIOPLASTY WITH STENT PLACEMENT Left 05/2014 PTCA /cuttung balloon to instent restenosis RCA CORONARY ANGIOPLASTY WITH STENT PLACEMENT Left 10/2006 DESto prox Rt PAV, mid & dist RCA CORONARY ANGIOPLASTY WITH STENT PLACEMENT Left 11/2014 PHU to RCA CORONARY ANGIOPLASTY WITH STENT PLACEMENT Left 10/2007 PHU to Prox Rt PAV, mid-dist RCA CORONARY ANGIOPLASTY WITH STENT PLACEMENT Left 03/2009 PHU to mid RCA CORONARY ANGIOPLASTY WITH STENT PLACEMENT Left 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 RCA CORONARY ANGIOPLASTY WITH STENT PLACEMENT Left 10/2013 PHU to prox & mid RCA CORONARY ANGIOPLASTY WITH STENT PLACEMENT Left 12/2007 PHU to LAD CORONARY ANGIOPLASTY WITH STENT PLACEMENT Bilateral 03/17/2021 Phu to the Mid RCA, and the Distal RCA CORONARY ANGIOPLASTY WITH STENT PLACEMENT Left 12/2012 PHU to mid RCA & prox-mid Rt GRACE JOINT REPLACEMENT 03/2019 TOTAL HIP ARTHROPLASTY Left 12/2012 Allergies Allergies Allergen Reactions Penicillins Rash Medications No current facility-administered medications for this visit. No current outpatient medications on file. Facility-Administered Medications Ordered in Other Visits: acetaminophen (Tylenol) tablet 650 mg, 650 mg, Oral, q6h PRN, 650 mg at 12/06/22 5728 OR acetaminophen (Tylenol) suppository 650 mg, 650 mg, Rectal, q6h PRN, Terry Drew MD amiodarone (Pacerone) tablet 200 mg, 200 mg, Oral, Daily, Terry Drew MD, 200 mg at 12/07/22 0902 amLODIPine (Norvasc) tablet 10 mg, 10 mg, Oral, Daily, Terry Drew MD, 10 mg at 12/07/22901 apixaban (Eliquis) tablet 5 mg, 5 mg, Oral, BID, Terry Drew MD, 5 mg at 12/07/22901 aspirin chewable tablet 81 mg, 81 mg, Oral, Daily, Terry Drew MD, 81 mg at 12/07/22901 atorvastatin (Lipitor) tablet 80 mg, 80 mg, Oral, Daily, Terry Drew MD, 80 mg at 12/06/222009 benzonatate (Tessalon) capsule 100 mg, 100 mg, Oral, TID PRN, Terry Drew MD, 100 mg at cholecalciferol (Vitamin D-3) tablet 800 Units, 800 Units, Oral, Daily, Terry Drew MD, 800 Units at 12/07/22901 clopidogrel (Plavix) tablet 75 mg, 75 mg, Oral, Daily, Terry Drew MD, 75 mg at 12/07/22901 ipratropium-albuterol (Duo-Neb) 0.5-2.5 mg/3 mL nebulizer solution 3 mL, 3 mL, Nebulization, q4h PRN, Manuel Edgar MD isosorbide mononitrate ER (Imdur) 24 hr tablet 60 mg, 60 mg, Oral, Daily, Terry Drew MD, 60 mg at 12/07/22901 metoprolol tartrate (Lopressor) tablet 50 mg, 50 mg, Oral, BID, Manuel Edgar MD, 50 mg at 12/07/22901 minoxidil (Loniten) tablet 5 mg, 5 mg, Oral, BID, Terry Drew MD, 5 mg at 12/07/22901 nitroglycerin (Nitrostat) SL tablet 0.4 mg, 0.4 mg, SubLINGual, q5 min PRN, Terry Drew MD ondansetron ODT (Zofran-ODT) disintegrating tablet 4 mg, 4 mg, Oral, q8h PRN OR ondansetron (Zofran) injection 4 mg, 4 mg, IntraVENous, q6h PRN, Terry Drew MD polyethylene glycol (PEG) 3350 (Miralax) packet 17 g, 17 g, Oral, Daily PRN, Terry Drew MD sodium chloride 0.9 % infusion, 5-250 mL/hr, IntraVENous, PRN, Terry Drew MD sodium chloride 0.9% (NS) flush 5-40 mL, 5-40 mL, IntraVENous, q12h, Terry Drew MD, 10 mL at 12/07/22 0904 sodium chloride 0.9% (NS) flush 5-40 mL, 5-40 mL, IntraVENous, PRN, Terry Drew MD [Held by provider] spironolactone (Aldactone) tablet 25 mg, 25 mg, Oral, BID, Terry Drew MD, 25mg at 12/06/222009 [Held by provider] torsemide (Demadex) tablet 10 mg, 10 mg, Oral, Daily, Terry Drew MD, 10 mg at 12/06/22 1101 [...] findings summarized in A/P. documented in this [facility]07[facility]17[facility]2023 Plan of care note* Care Plan - Javier Benton MD - 12/07/2022 8:43 AM EDT Consult noted. Full note to follow. Thank you Javier Benton [id number] Discharge instructions* Discharge Instr - Activity* Manuel Edgar MD - 12/07/2022 8:08 AM EDT As tolerated * Discharge Instr - Diet* Manuel Edgar MD - 12/07/2022 8:08 AM EDT Cardiac diet documented in this [facility]07-16-2023 Consult note* Satish Rascon MD - 12/06/2022 12:49 PM EDTAssociated Order(s): IP CONSULT TO CARDIOLOGY [facility]/ Electrophysiology Consult Note Reason for Consult/Chief Complaint: Chest pain History of Present Illness: Shannon Olson is a 67 y.o. male with known complex coronary artery disease presents with an episodeof rest pain. 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 Gonzales 12/03/2022. Patient has history of [...] not improve with nitroglycerin. He presented to [facility]. While there high-sensitivity troponin was at 174 then 175 with the upper limit of normal being 80. He was then sent to [facility] for further evaluation. Presently he is pain-free. He denies any recent fevers and chills. His weight has been stable. He is in process of treating his sleep apnea. He is compliant with his medical therapy. Past Medical History: Past Medical History: Diagnosis Date Angina pectoris ([facility]) Anxiety Arrhythmia A-fib Asthma CAD (coronary artery disease) Cerebral artery occlusion with cerebral infarction ([facility]) COPD (chronic obstructive pulmonary disease) ([facility]) Depression WATTS (dyspnea on exertion) Fatigue GERD (gastroesophageal reflux disease) History of cardioversion 05/07/2016 Successful conversion of a-fib to SR History of left heart catheterization 05/07/2016 60% stenosis right posterior descending, patent stents in prox, mid & distal RCA, patent stentsin med LCx. Findings unchanged from previous study. 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) ([facility]) 12/2012 NSTEMI (non-ST elevated myocardial infarction) ([facility]) ([facility]) 05/2014 Obesity Old PA (myocardial infarction) HIPOLITO (obstructive sleep apnea) HIPOLITO on CPAP PAF (paroxysmal atrial fibrillation) ([facility]) ([facility]) Rheumatoid arthritis(714.0) ([facility]) ST segment elevation myocardial infarction (STEMI) of anterolateral wall, subsequent episode of care ([facility]) ([facility]) TIA (transient ischemic attack) Past Surgical History: Past Surgical History: Procedure Laterality Date CAPSULOTOMY, HAND 05/07/2016 CARDIAC PROCEDURE Left 05/2015 CARDIAC PROCEDURE Left 06/03/2017 CARDIAC PROCEDURE Bilateral 01/2010 CARDIAC PROCEDURE Left 09/05/2019 PCI to distal RCA and PL branch CHOLECYSTECTOMY 10/30/2019 CORONARY ANGIOPLASTY WITH STENT PLACEMENT Left 11/2006 restent RCA, PHU to CX CORONARY ANGIOPLASTY WITH STENT PLACEMENT Left 05/2014 PTCA /cuttung balloon to instent restenosis RCA CORONARY ANGIOPLASTY WITH STENT PLACEMENT Left 10/2006 DESto prox Rt PAV, mid & dist RCA CORONARY ANGIOPLASTY WITH STENT PLACEMENT Left 11/2014 PHU to RCA CORONARY ANGIOPLASTY WITH STENT PLACEMENT Left 10/2007 PHU to Prox Rt PAV, mid-dist RCA CORONARY ANGIOPLASTY WITH STENT PLACEMENT Left 03/2009 PHU to mid RCA CORONARY ANGIOPLASTY WITH STENT PLACEMENT Left 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 RCA CORONARY ANGIOPLASTY WITH STENT PLACEMENT Left 10/2013 PHU to prox & mid RCA CORONARY ANGIOPLASTY WITH STENT PLACEMENT Left 12/2007 PHU to LAD CORONARY ANGIOPLASTY WITH STENT PLACEMENT Bilateral 03/17/2021 Phu to the Mid RCA, and the Distal RCA CORONARY ANGIOPLASTY WITH STENT PLACEMENT Left 12/2012 PHU to mid RCA & prox-mid Rt GRACE [...] resp. rate 18, SpO2 97 %. @IODETAILS@ @[id number]@ Physical Exam Laboratory Tests: @[id number](WBC:5,HGB:5,HCT:5,MCV:5,PLT:5)@ Lab Results Component Value Date GLUCOSE 82 [...] known significant coronary artery disease and angina. High- sensitivity troponin slightly elevated from an outside hospital. I am unsure of the significance of that lab value. We will cycle troponins here, keep him on Plavix and apixaban and continue antianginals. He will naturally continue his beta-ntonygm33 mg twice daily. Further recs dependent upon troponin Atrial fibrillation: He maintains amiodarone 200 mg daily and the apixaban. He does not believe theepisode this morning was secondary to transient arrhythmia. We will follow on telemetry. Congestive failure: Volume status to me seems reasonable as it was in the office with Dr. Gonzales just a few days ago. Continue home diuretics. Satish Rascon MD DATE of SERVICE: 12/06/2022 [facility] Phone: [phone] History and physical note* Terry Drew MD - 12/06/2022 10:59 AM EDT Images from the original note were not included. History and Physical Admit Date: 12/06/2022 PCP: Finn Ferrell MD CHIEF COMPLAINT: Chest pain HISTORY OF [...] worsening chest pain was seen at the [place] ED found to have elevated troponins now transferred to [facility]. Currently patient has no chest pain. Past Medical History: Past Medical History: Diagnosis Date Angina pectoris ([facility]) Anxiety Arrhythmia A-fib Asthma CAD (coronary artery disease) Cerebral artery occlusion with cerebral infarction ([facility]) COPD (chronic obstructive pulmonary disease) ([facility]) Depression WATTS (dyspnea on exertion) Fatigue GERD (gastroesophageal reflux disease) History of cardioversion 05/07/2016 Successful conversion of a-fib to SR History of left heart catheterization 05/07/2016 60% stenosis right posterior descending, patent stents in prox, mid & distal RCA, patent stentsin med LCx. Findings unchanged from previous study. 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) ([facility]) 12/2012 NSTEMI (non-ST elevated myocardial infarction) ([facility]) ([facility]) 05/2014 Obesity Old PA (myocardial infarction) HIPOLITO (obstructive sleep apnea) HIPOLITO on CPAP PAF (paroxysmal atrial fibrillation) ([facility]) ([facility]) Rheumatoid arthritis(714.0) ([facility]) ST segment elevation myocardial infarction (STEMI) of anterolateral wall, subsequent episode of care ([facility]) ([facility]) TIA (transient ischemic attack) Past Surgical History: Past Surgical History: Procedure Laterality Date CAPSULOTOMY, HAND 05/07/2016 CARDIAC PROCEDURE Left 05/2015 CARDIAC PROCEDURE Left 06/03/2017 CARDIAC PROCEDURE Bilateral 01/2010 CARDIAC PROCEDURE Left 09/05/2019 PCI to distal RCA and PL branch CHOLECYSTECTOMY 10/30/2019 CORONARY ANGIOPLASTY WITH STENT PLACEMENT Left 11/2006 restent RCA, PHU to CX CORONARY ANGIOPLASTY WITH STENT PLACEMENT Left 05/2014 PTCA /cuttung balloon to instent restenosis RCA CORONARY ANGIOPLASTY WITH STENT PLACEMENT Left 10/2006 DESto prox Rt PAV, mid & dist RCA CORONARY ANGIOPLASTY WITH STENT PLACEMENT Left 11/2014 PHU to RCA CORONARY ANGIOPLASTY WITH STENT PLACEMENT Left 10/2007 PHU to Prox Rt PAV, mid-dist RCA CORONARY ANGIOPLASTY WITH STENT PLACEMENT Left 03/2009 PHU to mid RCA CORONARY ANGIOPLASTY WITH STENT PLACEMENT Left 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 RCA CORONARY ANGIOPLASTY WITH STENT PLACEMENT Left 10/2013 PHU to prox & mid RCA CORONARY ANGIOPLASTY WITH STENT PLACEMENT Left 12/2007 PHU to LAD CORONARY ANGIOPLASTY WITH STENT PLACEMENT Bilateral 03/17/2021 Phu to the Mid RCA, and the Distal RCA CORONARY ANGIOPLASTY WITH STENT PLACEMENT Left 12/2012 PHU to mid RCA & prox-mid Rt GRACE [...] If no relief after 3 tablets, call 9-- immediately. 25 tablet 3 nitroglycerin (Nitrostat) 0.[address] 1 tablet (0.4 mg) under the tongue every 5 minutesas needed for chest pain. May repeat dose [...] by mouth Once for 1 dose. Take onthe night of your sleep study. 1 tablet [...] Psychiatric/Behavioral: Negative for suicidal ideas, behavioral problems, self- injury and dysphoricmood. Vitals: BP (!) 185/83 Pulse 88 Temp [...] Status post left heart catheterization CAD in [place] artery Class 2 obesity in adult COPD (chronic obstructive pulmonary disease) ([facility]) HIPOLITO on CPAP CAD (coronary artery disease) PAF (paroxysmal atrial fibrillation) ([facility]) ([facility]) CKD NSTEMI patient with known coronary artery disease. Holding on Lovenox for now as patient is mostly asymptomatic and already on oral anticoagulation His last cardiac catheterization was in November 2021, at that time they attempted to revascularize themid RCA in-stent restenosis and were unsuccessful I [...] signed by @BROOKS@ on @TDNR@ at @NOWNR@ [id number] History and physical note* Terry Drew MD - 12/06/2022 10:59 AM EDT Images from the original note were not included. History and Physical Admit Date: 12/06/2022 PCP: Finn Ferrell MD CHIEF COMPLAINT: Chest pain HISTORY OF [...] worsening chest pain was seen at the [facility] ED found to have elevated troponins now transferred to [facility]. Currently patient has no chest pain. Past Medical History: Past Medical History: Diagnosis Date Angina pectoris ([facility]) Anxiety Arrhythmia A-fib Asthma CAD (coronary artery disease) Cerebral artery occlusion with cerebral infarction ([facility]) COPD (chronic obstructive pulmonary disease) ([facility]) Depression WATTS (dyspnea on exertion) Fatigue GERD (gastroesophageal reflux disease) History of cardioversion 05/07/2016 Successful conversion of a-fib to SR History of left heart catheterization 05/07/2016 60% stenosis right posterior descending, patent stents in prox, mid & distal RCA, patent stentsin med LCx. Findings unchanged from previous study. 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) ([facility]) 12/2012 NSTEMI (non-ST elevated myocardial infarction) ([facility]) ([facility]) 05/2014 Obesity Old PA (myocardial infarction) HIPOLITO (obstructive sleep apnea) HIPOLITO on CPAP PAF (paroxysmal atrial fibrillation) ([facility]) ([facility]) Rheumatoid arthritis(714.0) ([facility]) ST segment elevation myocardial infarction (STEMI) of anterolateral wall, subsequent episode of care ([facility]) ([facility]) TIA (transient ischemic attack) Past Surgical History: Past Surgical History: Procedure Laterality Date CAPSULOTOMY, HAND 05/07/2016 CARDIAC PROCEDURE Left 05/2015 CARDIAC PROCEDURE Left 06/03/2017 CARDIAC PROCEDURE Bilateral 01/2010 CARDIAC PROCEDURE Left 09/05/2019 PCI to distal RCA and PL branch CHOLECYSTECTOMY 10/30/2019 CORONARY ANGIOPLASTY WITH STENT PLACEMENT Left 11/2006 restent RCA, PHU to CX CORONARY ANGIOPLASTY WITH STENT PLACEMENT Left 05/2014 PTCA /cuttung balloon to instent restenosis RCA CORONARY ANGIOPLASTY WITH STENT PLACEMENT Left 10/2006 DESto prox Rt PAV, mid & dist RCA CORONARY ANGIOPLASTY WITH STENT PLACEMENT Left 11/2014 PHU to RCA CORONARY ANGIOPLASTY WITH STENT PLACEMENT Left 10/2007 PHU to Prox Rt PAV, mid-dist RCA CORONARY ANGIOPLASTY WITH STENT PLACEMENT Left 03/2009 PHU to mid RCA CORONARY ANGIOPLASTY WITH STENT PLACEMENT Left 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 RCA CORONARY ANGIOPLASTY WITH STENT PLACEMENT Left 10/2013 PHU to prox & mid RCA CORONARY ANGIOPLASTY WITH STENT PLACEMENT Left 12/2007 PHU to LAD CORONARY ANGIOPLASTY WITH STENT PLACEMENT Bilateral 03/17/2021 Phu to the Mid RCA, and the Distal RCA CORONARY ANGIOPLASTY WITH STENT PLACEMENT Left 12/2012 PHU to mid RCA & prox-mid Rt GRACE [...] (0.4 mg) under the tongue every 5 minutesas needed for chest pain. May repeat dose [...] by mouth Once for 1 dose. Take onthe night of your sleep study. 1 tablet [...] Psychiatric/Behavioral: Negative for suicidal ideas, behavioral problems, self- injury and dysphoricmood. Vitals: BP (!) 185/83 Pulse 88 Temp [...] Status post left heart catheterization CAD in [place] artery Class 2 obesity in adult COPD (chronic obstructive pulmonary disease) ([facility]) HIPOLITO on CPAP CAD (coronary artery disease) PAF (paroxysmal atrial fibrillation) ([facility]) ([facility]) CKD NSTEMI patient with known coronary artery disease. Holding on Lovenox for now as patient is mostly asymptomatic and already on oral anticoagulation His last cardiac catheterization was in November 2021, at that time they attempted to revascularize themid RCA in-stent restenosis and were unsuccessful I [...] patient's PCP. Thank you. Electronically signed by @[email or web address]@ on @TDNR@ at @NOWNR@ documented in this [facility]07-16[facility]2023 History and physical note Author Henrietta Quinonez [facility] December 06, 2022 4:25am Note Date/Time December 06, 2022 12:4 2am [facility] Medical Records Department [address] [place] [address] H&P Exam - Hospitalist 12/06/22 0038 MR#: [id number] Acct: [id number] Name: SHANNON OLSON Rep #:[id number] : 1955 67 From: Henrietta Quinonez MD PCP: Dr. Finn Ferrell MD Status:RE G ER Location: ED HPI - General General Date of Admission: 12/06/22 Date of Service: 12/06/22 Chief Complaint: Chest pain HPI Narrative The patient is a 67 y/o M w/ PMHx: Chronic normocytic anemia, Morbid Obesity, Chronic dyphagia following with Dr. Vera, PAF, CAD s/p PCI, COPD, Depression and Anxiety, GERD, HIPOLITO, Rheumatoid arthritis who presents to the [facility] ED on 12/06/22 with history of onset of chest discomfort with associated dyspnea at approximately 10 PM on evening prior to ED presentation noted to be worse with exertion with associated nausea without emesis as well as dizziness with discomfort midsternal radiating towards back as well as his neck primarily on the left side as well as his left upper extremity prompting eventual ED evaluation. He does report a history of a nonproductive cough that has been ongoing. He notes that he did have complete resolution of his discomfort following sublingual nitroglycerin administration. He had a recent outpatient cardiology follow-up with no issues at that time. Work-up in the ED included T97.9, heart rate 79, BP 146/77, respiratory rate 14, 96% on room air, CBC with WBC 15.5, hemoglobin 12.5, MCV 91.7, platelet 263 with left shift and lymphopenia, BMP with chloride 109, BUN/creatinine 27/1.56, glucose 199, initialtroponin 174, BNP 14.5, chest x-ray with no acute cardiopulmonary finding, EKG EKG with sinus rhythm with no acute evidence of ischemia. In the ED patient ministered full-strength aspirin therapy and sublingual nitroglycerin. [facility] Medical History Anxiety Atrial fibrillation CAD (coronary artery disease) Cardiology follow-up encounter Chest pain Cholelithiasis with chronic cholecystitis COPD (chronic obstructive pulmonary disease) COPD (chronic obstructive pulmonary disease) Coronary atherosclerosis of [place] coronary vessel Depression Difficulty swallowing Dysphagia Epidermal inclusion cyst Esophageal reflux Excessive bleeding Gastric reflux High cholesterol History of atrial fibrillation History of echocardiogram History of edema History of heart attack history of ischemic stroke History of stress test HTN (hypertension) Hyperlipidemia Hypertension Left rotator cuff tear Leg cramps Non-smoker NSVT (nonsustained ventricular tachycardia) Obstructive sleep apnea syndrome PONV (postoperative nausea and vomiting) Rheumatoid arthritis Screening for malignant neoplasm of intestine Sensorineural hearing loss, 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 Shortness of breath on exertion Sleep apnea Wears glasses Home Medications amlodipine 5 mg tablet (Norvasc) 5 mg PO DAILY blood pressure 10/05/19 [History Last Taken 08/20/22] minoxidil 10 mg tablet 5 mg PO BID blood pressure 10/05/19 [History Last Taken 08/20/22] nitroglycerin 0.4 mg sublingual tablet 0.4 mg sublingual Q5-15M PRN cp 10/05/19 [History Last Taken Unknown] amiodarone 200 mg tablet 200 mg PO DAILY HEART 04/01/20 [History Last Taken 08/20/22] lisinopril 20 mg tablet 20 mg PO DAILY HTN 10/27/20 [History Last Taken 08/20/22] spironolactone 25 mg tablet (Aldactone) 25 mg PO DAILY diuretic 10/27/20 [History Last Taken 10/27/20] atorvastatin 80 mg tablet 80 mg PO QHS #30 tabs 10/31/20 [Rx Last Taken Unknown] clopidogrel 75 mg tablet (Plavix) 75 mg PO DAILY 09/09/21 [History Last Taken 08/15/22] apixaban 5 mg tablet (Eliquis) 5 mg PO BID 10/30/21 [History Last Taken 08/17/22] isosorbide mononitrate 30 mg tablet,extended release 24 hr 30 mg PO BID 01/07/22[History Last Taken 08/20/22] pantoprazole 40 mg tablet,delayed release (Protonix) 40 mg PO QAM #90 tabs 04/01/22 [Rx Last Taken 08/20/22] oxycodone 5 mg tablet 10 mg (2 x 5 mg) PO Q6H PRN PRN Pain Score 6-10 7 days #42tabs 08/21/22 [Rx Last Taken Unknown] Allergy/AdvReac Type Severity Reaction Status Date / Time Penicillins Allergy Hives Verified 12/05/22 22:47 Family History (Updated 12/06/22 @ 02:[address] Henrietta Quinonez MD) Sister Cancer ovarian Brother Diabetes Mother Heart disease Father Prostate cancer Surgical History History of cardiac catheterization History of colonoscopy (~2014) History of coronary angioplasty History of esophagogastroduodenoscopy (EGD) (~2014) History of heart artery stent History of inguinal hernia repair History of knee joint replacement History of left shoulder replacement History of total left hip arthroplasty History of total right hip arthroplasty Hx of cholecystectomy S/P PTCA (percutaneous transluminal coronary angioplasty) Social History (Updated 12/06/22 @ 02:[address] Henrietta Quinonez MD) household members: none Smoking Status: Never smoker alcohol intake: never substance use type: does not use ROS ROS Narrative Admission Review of Systems: CONSTITUTIONAL: No weight loss, fever, chills, + weakness or fatigue. HEENT: Eyes: No visual loss, blurred vision, double vision or yellow sclerae. Ears, Nose, Throat: No hearing loss, sneezing, congestion, runny nose or sore throat. SKIN: No rash or itching, lesions, wounds. CARDIOVASCULAR: + chest pain, chest pressure or chest discomfort, No palpitations, edema, orthopnea, syncopal events. RESPIRATORY: + Shortness of breath, cough without marked sputum, No wheezing, hemoptysis. GASTROINTESTINAL: No anorexia, nausea, vomiting or diarrhea, abdominal pain, melena, BRBPR. GENITOURINARY: No dysuria, frequency, urgency or retention. NEUROLOGICAL: No headache, dizziness, syncope, paralysis, ataxia, numbness or tingling in the extremities, focal weakness, change in bowel or bladder control,seizure. MUSCULOSKELETAL: + muscle, back pain, joint pain or stiffness. HEMATOLOGIC: + anemia, bleeding or bruising. LYMPHATICS: No enlarged nodes. No history of splenectomy. PSYCHIATRIC: + history of depression or anxiety. ENDOCRINOLOGIC: No reports of sweating, cold or heat intolerance. No polyuria orpolydipsia. ALLERGIES: + history of hives. Vital Signs Vital Signs Vital Signs: 12/05/22 22:45 12/05/22 22:50 12/05/22 23:03 Temperature 97.9 F Temperature Source Oral Pulse Rate 79 Respiratory Rate 14 Respiratory Effort Normal Non-Labored Blood Pressure 146/77 H Blood Pressure Mean 100 Pulse Ox 96 96 Oxygen Delivery Method Room Air Room Air 12/05/22 23:11 12/06/22 00:35 Temperature Temperature Source Pulse Rate 68 Respiratory Rate 18 Respiratory Effort Blood Pressure 146/84 H 131/67 H Blood Pressure Mean 88 Pulse Ox 96 Oxygen Delivery Method Room Air Weight Weight: 319 lb 10.724 oz Body Mass Index (BMI) 41.0 Physical Exam Narrative Physical Examination: General: Awake, alert, oriented x 3 and cooperative, seated upright in the ED bed, mildly fatigued but notes chest pain still resolved. Skin: Normal color, normal turgor, no icterus, no cyanosis. HEENT: AT/NC, EOMI, PERRLA, MMM, no carotid bruits or JVD noted; however, very thickened neck makes evaluation difficult. Lungs: Distant breath sounds, diminished, greater bases, appropriate effort, no rales, ronchi or wheezing. Heart: Regular rate and rhythm; no gallop, rub audible. Abdomen: Soft, morbidly obese, NTTP, difficult to assess distention and HSM secondary to habitus, distant normal BS. Extremities: No cyanosis, no clubbing, bilateral nonpitting ankle edema. Neurological: Patient awake, alert, oriented as noted, cognitive function intact; pupils equally reactive to light and accommodation, cranial nerves II-XII grossly normal, moving all 4 extremities, no focal deficits, strength moderately global decrease secondary to acute complaints but improving given resolution chest discomfort. Psychiatric: Affect appears fatigued otherwise normal, no acute evidence of depressive or anxiety feelings but does have underlying history. Results Lab / Micro Data 12/05/22 23:00 12/05/22 23:00 Labs: Laboratory Results - last 24 hr 12/05/22 23:00: WBC 15.5 H, RBC 4.21 L, Hgb 12.5 L, Hct 38.6 L, MCV 91.7, MCH 29.7, MCHC 32.4, RDW Std Deviation 47.4 H, RDW Coeff of Santhosh 14.3, Plt Count 263,MPV 9.7, Immature Gran % (Auto) 1.100 H, Neut % (Auto) 92.5 H, Lymph % (Auto) 3.8 L, [place] % (Auto) 2.4, Eos % (Auto) 0.0, Baso % (Auto) 0.2, Absolute Neuts (auto) 14.4 H, Absolute Lymphs (auto) 0.59 L, Nucleated RBC % 0, Differential Comment SCANNED, Sodium 137, Potassium 4.9, Chloride 109 H, Carbon Dioxide 23.0,Anion Gap 5, BUN 27 H, Creatinine 1.56 H, Estim Creat Clear Calc 53.42, Est GFR (MDRD) Af Amer 57 L, Est GFR (MDRD) Non-Af 47 L, BUN/Creatinine Ratio 17.3, Glucose 199 H, Calcium 9.1, Troponin I High Sens 174 H*, B-Natriuretic Peptide 14.5 Radiology Impression Chest X-Ray 12/05/22 23:06 IMPRESSION: Normal x-ray examination of the chest. Electronically Signed: Javy Nelson MD at 23:27 EDT , Assessment & Plan Assessment/Plan (1) NSTEMI, initial episode of care: PLAN: Plan The patient is a 67 y/o M w/ PMHx: Chronic normocytic anemia, Morbid Obesity, Chronic dyphagia following with Dr. Vera, MANAV, CAD s/p PCI, COPD, Depression and Anxiety, GERD, HIPOLITO, Rheumatoid arthritis who presents to the [facility] ED on 12/06/22 with history of onset of chest discomfort with associated dyspnea at approximately 10 PM on evening prior to ED presentation noted to be worse with exertion with associated nausea without emesis as well as dizziness with discomfort midsternal radiating towards back as well as his neck prompting eventual ED evaluation. #1. Chest Pain w/ Acute NSTEMI: EKG in ED w/ sinus rhythm with no acute evidence of ischemia, CXR w/ no acute cardiopulmonary findings. Trop elevated, initial 174. Will admit to PCU, maintain on a monitored bed, continue serial cardiac enzymes and EKGs. Obtain magnesium level upon admission. We will temporarily hold patient home apixaban regimen and the next dose due will initiate heparin drip for future cardiac catheterization potential planning. Continue medical management w/ asa, Plavix, per most recent list not on beta-delia therapy, continue lisinopril, statin therapy. Magnesium level requested. FLP in AM. ECHO requested. Cardiology consulted, pending. ASA, NG, morphine. #2. CAD: Status post prior PCI, will continue aspirin, Plavix, lisinopril, not on beta-delia therapy, temporally holding Eliquis with transition at next dosedue to heparin drip for preparation for possible cardiac catheterization. #3. Hypertension: Continue home regimen including amlodipine, isosorbide, lisinopril, spironolactone, PRN hydralazine. #4. Hyperlipidemia: Continue home statin regimen. AM FLP. #5. Chronic normocytic anemia: Admission hemoglobin 12.5, prior baseline primarily 11-13 but is primarily been in the 12 range more recently until 11/25/2022 hemoglobin 13.5 at that time, will continue to trend. #6. Chronic Kidney Disease Stage III, unclear subtype: Admission BUN/Cr 27/1.5,baseline renal function appears primarily 1.2-1.5, repeat BMP in AM. #7. Morbid Obesity: Weight loss and lifestyle changes encouraged. #8. PAF: We will continue patient home amiodarone regimen, temporally holding home Eliquis and plan to transition at next dose due to heparin drip for possible cardiac catheterization preparation. #9. Chronic COPD: Does not appear to be on chronic oxygen or chronic inhalers, given cough complaints will add ATC budesonide, PRN albuterol, HOB, IS parameters. #10. GERD: We will continue patient home PPI. #11. Rheumatoid arthritis: Per current list not on any chronic rheumatological type regimen, does have chronic oxycodone, will continue. #12. Depression and anxiety: Noted chart history, per current list not on any chronic regimen, clarifying. #13. HIPOLITO: BIPAP q HS. #14. DVT prophylaxis: As noted temporally holding home Eliquis without next dose due transition to heparin drip for possible cardiac catheterization preparation. #15. CODE status: Patient LANDON is his brother and living will is currently in place. Discussed CODE status at length including difference between FULL code, DNR-CCA and DNR-CC status. Following discussions about the differences in these status, requested full CODE STATUS however initially he was not so certain but once we discussed he noted full code amenable but if things seem dire to transition to comfort measures. Advanced Care Planning Face to Face Time: 16 minutes. Admission Evaluation Time spent evaluating chart, patient history, patient evaluation, care planning and discussion with specialists: 75 minutes. Charges/Coding Visit Charges Inpatient E&M: 11319 Init Hosp L3 Procedures Hospitalists Procedures: 72157 Advncd Care Plan 30 Min 12/06/22 0232 <Electronically signed by Henrietta Quinonez MD> Cosigner Signature (if applicable): CC: Dr. Henrietta Quinonez MD; Dr. Finn Ferrell MD~ Signed ADDENDUM by Dr. Henrietta Quinonez MD on 12/06/22 at 0425 Addendum Patient notified hospitalist of preference instead of admission to [facility] to be transferred to [facility] where he has had his prior cardiac care and stent placements. Case discussed by Hospitalist and ED with [facility] with [facility] Cardiology and Hospitalist service, awaiting bed. Visit Charges Office Visits / Consults: 05980 ED Visit; High/Threatening Severity (Patient being transferred instead of admitted[place] 41040/08926.) Procedures Hospitalists Procedures: 61367 Advncd Care Plan 30 Min (Patient being transferred instead of admitted[place] 63865/85459.) 12/06/22 0425<Electronically signed by Henrietta Quinonez MD> Cosigner Signature (if applicable): cc: Dr. Henrietta Quinonez MD; Dr. Finn Ferrell MD ~* Signed [facility] Work Phone: [phone] Discharge summary Author Kraig Bautista [facility] December 06, 2022 4:14am Note Date/Time December 05, 2022 10:4 8pm [facility] Medical Records Department [address] [place] [address] Emergency Department Summary 12/05/22 MR#: [id number] Acct: [id number] Name: SHANNON OLSON Rep #:[id number] : 1955 67 From: Kraig Clement PCP: Dr. Finn Ferrell MD Status:RE G ER Location: ED HPI History of Present Illness Chief Complaint: [facility] Medical History Anxiety Atrial fibrillation CAD (coronary artery disease) Cardiology follow-up encounter Chest pain Cholelithiasis with chronic cholecystitis COPD (chronic obstructive pulmonary disease) COPD (chronic obstructive pulmonary disease) Coronary atherosclerosis of [place] coronary vessel Depression Difficulty swallowing Dysphagia Epidermal inclusion cyst Esophageal reflux Excessive bleeding Gastric reflux High cholesterol History of atrial fibrillation History of echocardiogram History of edema History of heart attack history of ischemic stroke History of stress test HTN (hypertension) Hyperlipidemia Hypertension Left rotator cuff tear Leg cramps Non-smoker NSVT (nonsustained ventricular tachycardia) Obstructive sleep apnea syndrome PONV (postoperative nausea and vomiting) Rheumatoid arthritis Screening for malignant neoplasm of intestine Sensorineural hearing loss, 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 Shortness of breath on exertion Sleep apnea Wears glasses Home Medications amlodipine 5 mg tablet (Norvasc) 5 mg PO DAILY blood pressure 10/05/19 [History Last Taken 08/20/22] minoxidil 10 mg tablet 5 mg PO BID blood pressure 10/05/19 [History Last Taken 08/20/22] nitroglycerin 0.4 mg sublingual tablet 0.4 mg sublingual Q5-15M PRN cp 10/05/19 [History Last Taken Unknown] amiodarone 200 mg tablet 200 mg PO DAILY HEART 04/01/20 [History Last Taken 08/20/22] lisinopril 20 mg tablet 20 mg PO DAILY HTN 10/27/20 [History Last Taken 08/20/22] spironolactone 25 mg tablet (Aldactone) 25 mg PO DAILY diuretic 10/27/20 [History Last Taken 10/27/20] atorvastatin 80 mg tablet 80 mg PO QHS #30 tabs 10/31/20 [Rx Last Taken Unknown] clopidogrel 75 mg tablet (Plavix) 75 mg PO DAILY 09/09/21 [History Last Taken 08/15/22] apixaban 5 mg tablet (Eliquis) 5 mg PO BID 10/30/21 [History Last Taken 08/17/22] isosorbide mononitrate 30 mg tablet,extended release 24 hr 30 mg PO BID 01/07/22[History Last Taken 08/20/22] pantoprazole 40 mg tablet,delayed release (Protonix) 40 mg PO QAM #90 tabs 04/01/22 [Rx Last Taken 08/20/22] oxycodone 5 mg tablet 10 mg (2 x 5 mg) PO Q6H PRN PRN Pain Score 6-10 7 days #42tabs 08/21/22 [Rx Last Taken Unknown] Allergy/AdvReac Type Severity Reaction Status Date / Time Penicillins Allergy Hives Verified 12/05/22 22:47 Family History (Updated 12/06/22 @ 02:[address] Henrietta Quinonez MD) Sister Cancer ovarian Brother Diabetes Mother Heart disease Father Prostate cancer Surgical History History of cardiac catheterization History of colonoscopy (~2014) History of coronary angioplasty History of esophagogastroduodenoscopy (EGD) (~2014) History of heart artery stent History of inguinal hernia repair History of knee joint replacement History of left shoulder replacement History of total left hip arthroplasty History of total right hip arthroplasty Hx of cholecystectomy S/P PTCA (percutaneous transluminal coronary angioplasty) Social History (Updated 12/06/22 @ 02:[address] Henrietta Quinonez MD) household members: none Smoking Status: Never smoker alcohol intake: never substance use type: does not use EXAM Physical Exam Const Vital Signs: 12/05/22 22:45 12/05/22 22:50 12/05/22 23:03 Temperature 97.9 F Temperature Source Oral Pulse Rate 79 Respiratory Rate 14 Respiratory Effort Normal Non-Labored Blood Pressure 146/77 H Blood Pressure Mean 100 Pulse Ox 96 96 Oxygen Delivery Method Room Air Room Air 12/05/22 23:11 12/06/22 00:35 12/06/22 01:08 Temperature 97.8 F Temperature Source Oral Pulse Rate 68 75 Respiratory Rate 18 16 Respiratory Effort Blood Pressure 146/84 H 131/67 H 142/91 H Blood Pressure Mean 88 108 Pulse Ox 96 97 Oxygen Delivery Method Room Air Room Air 12/06/22 02:14 12/06/22 03:00 Temperature Temperature Source Pulse Rate 70 69 Respiratory Rate 16 19 H Respiratory Effort Blood Pressure 148/72 H 135/74 H Blood Pressure Mean 97 94 Pulse Ox 97 98 Oxygen Delivery Method Room Air Room Air Heart Score History: Highly Suspicious ECG: Normal Age: >/= 65 years Risk Factors: >/= 3 Risk Factors or History of CAD Score: 6 MDM MDM MDM Narrative Medical decision making narrative: HISTORY OF PRESENT ILLNESS: 67-year-old male here with chest pain associated shortness of breath that started tonight at approximately 10 PM proxy 1 hour prior to arrival. States chest pain is worse with exertion associated shortness of breath dizziness and nausea. States the pain radiates to his back and his neck. Denies any focal numbness or weakness. Denies any recent nausea or vomiting. Does note a cough that is nonproductive. He notes is also associated with shortness of breath. The patient denies recent surgery in the last 4 weeks or immobilization in the last 3 days, denies previous diagnosis of DVT or PE, hemoptysis, unilateral leg swelling or malignancy with treatment the last 6 months. No estrogen use noted. Patient denies sudden onset of pain, no tearing sensation, no migratory symptoms, no new numbness, weakness or loss of sensation. Patient denies familyhistory or personal history of Marfan syndrome or Martina-Danlos REVIEW OF SYSTEMS: Pertinent positives: Chest pain, shortness of breath, dizziness and nausea Pertinent negatives: Syncope, focal weakness or numbness PHYSICAL EXAM: Nursing triage notes reviewed, Vital signs reviewed Constitutional: please see mdm HENT: MMM Eyes: Pupils equal round and reactive to light, Extraocular muscles intact Neck: No stridor, no JVD, full neck ROM Lungs: Clear to auscultation, No wheezing or rales. No increased work of breathing, no conversational dyspnea, no accessory muscle use, no nasal flaring. No respiratory distress noted Heart: Regular rate and rhythm, No murmurs, No rubs and No gallops, 2+ distal pulses (radial, femoral, posterior tibial) in all extremities Abdomen: Soft, there is no tenderness, rigidity, rebound or guarding, no obviousperitoneal signs, no palpable pulsatile abdominal masses, no auscultated abdominal bruit : No CVAT Extremities: No edema Neuro: No focal neurological deficits, cranial nerves II through XII intact, 5/5strength in all extremities. Intact sensation to light touch in all extremities,2+ reflexes bilateral patella tendons. Normal gait. No ataxia. Skin: No rash or lesions noted MEDICAL DECISION MAKING: Chief Complaint: Chest pain External records reviewed: Echocardiogram 2020 shows an ejection fraction of 60%with no regional wall motion abnormality Factors affecting care: CAD, COPD atrial fibrillation, hypertension, hyperlipidemia, GERD on Eliquis, amiodarone Plavix Social determinants of health: Never smoker History obtained from others: The patient's family Consults: patching machine operator Dr. Santacruz, Internal medicine Dr. Quinonez, internal medicine [facility] Dr. Oneil ALL IMAGES (IF OBTAINED) HAVE BEEN PERSONALLY REVIEWED AND INTERPRETED BY MYSELF. EKG shows normal sinus rhythm, normal axis, slightly prolonged QT, no STEMI Initial troponin elevated concerning for myocardial ischemia, delta troponin continues to uptrend more concerning for myocardial ischemia the patient is chest pain-free CBC with leukocytosis suggestive of systemic inflammation, mild anemia but no thrombocytopenia noted BNP within normal limits Magnesium within normal limits BMP with baseline CKD, no significant electrolyte abnormalities noted MDM Narrative: Patient was hemodynamically stable, afebrile, nontoxic-appearing. Exam I considered the following differential diagnosis: ACS, arrhythmia, anemia, electrolyte abnormalities, PE, dissection I obtained a broad lab and imaging work-up to further elucidate the etiology of the patient's complaint. EKG showed no evidence of STEMI. Troponin was initially elevated concerning for NSTEMI. There is no sign of significant anemia, electrolyte abnormality. While I considered dissection PE I thought these diagnoses are less likely given the patient's clinical history and exam. There is low risk Wells score to suggest pulmonary embolism. In addition to this patient's been compliant with Eliquis was makes PE less likely there is no focal pulse deficits, focal neurodeficits to suggest aortic dissection. Patient's heart score is 7 with a concerning story, advanced age and multiple medical comorbidities. He will require admission for cardiology consultation and confirmatory testing. Offer admission here at [facility] however he refused. He stated he like be admitted to [facility]. I communicated with the leasing consultant Dr. Santacruz at [facility] who agreed the patient can be admitted to telemetry floor. I discussed the case with Dr. Lang. The patient and/or family, caregivers express understanding. The patient and/orfamily, caregivers agrees with the plan. Total critical care time today provided was at least 0 minutes. This excludes separately billable procedures. Critical care time (if documented) is secondary to the patient having high probability of clinically significant/life threatening deterioration in the patient's condition which required my urgent intervention. Shared decision making: I will have a discussion with the patient and or visitors regarding risk/benefits of further testing or admission. They will be made aware of of the risk/benefits inherent in this decision they will be given the opportunity to voice understanding. Lab Data Attestation: I reviewed the patient's lab results. Labs: Laboratory Results - last 24 hr 12/05/22 12/06/22 23:00 01:15 WBC 15.5 H RBC 4.21 L Hgb 12.5 L Hct 38.6 L MCV 91.7 MCH 29.7 MCHC 32.4 RDW Std Deviation 47.4 H RDW Coeff of Santhosh 14.3 Plt Count 263 MPV 9.7 Immature Gran % (Auto) 1.100 H Neut % (Auto) 92.5 H Lymph % (Auto) 3.8 L [place] % (Auto) 2.4 Eos % (Auto) 0.0 Baso % (Auto) 0.2 Absolute Neuts (auto) 14.4 H Absolute Lymphs (auto) 0.59 L Nucleated RBC % 0 Differential Comment SCANNED PT 13.0 INR 1.0 APTT 24.1 Sodium 137 Potassium 4.9 Chloride 109 H Carbon Dioxide 23.0 Anion Gap 5 BUN 27 H Creatinine 1.56 H Estim Creat Clear Calc 53.42 Est GFR (MDRD) Af Amer 57 L Est GFR (MDRD) Non-Af 47 L BUN/Creatinine Ratio 17.3 Glucose 199 H Calcium 9.1 Magnesium 2.2 Troponin I High Sens 174 H* 175 H* B-Natriuretic Peptide 14.5 Radiography Chest X-Ray - ED: Read by ED Physician Diagnostic Testing: Clinical Impression(s) from Imaging Studies Chest X-Ray 12/05/22 23:06 IMPRESSION: Normal x-ray examination of the chest. Electronically Signed: Javy Nelson MD at 23:27 EDT , Chest x-ray read and interpreted by myself shows no evidence of CHF, there is mildly increased cardiomegaly from prior study, no pneumonia or pneumothorax noted Discharge Plan Triage Chief Complaint: Chest Pain ED Provider: Kraig Bautista Dx/Rx/DC Orders Clinical Impression: History of CAD (coronary artery disease), Chest pain Prescriptions: No Action nitroglycerin 0.4 mg tablet, sublingual 0.4 mg SUBLINGUAL Q5-15M PRN (Reason: cp) Rx Instructions: do not exceed 3 doses per episode amlodipine [Norvasc] 5 mg tablet 5 mg PO DAILY minoxidil 10 mg tablet 5 mg PO BID Patient Comments: TAKE ONE-HALF TABLET BY MOUTH TWICE DAILY Eliquis 5 mg tablet 5 mg PO BID pantoprazole [Protonix] 40 mg tablet,delayed release (DR/EC) 40 mg PO QAM Qty: 90 3RF amiodarone 200 MG tablet 200 mg PO DAILY lisinopril 20 mg Tablet 20 mg PO DAILY spironolactone [Aldactone] 25 mg Tablet 25 mg PO DAILY atorvastatin 80 mg Tablet 80 mg PO QHS Qty: 30 0RF clopidogrel [Plavix] 75 mg Tablet 75 mg PO DAILY isosorbide mononitrate 30 mg Tablet Extended Release 24 Hr 30 mg PO BID oxycodone 5 mg Tablet 10 mg PO Q6H PRN PRN (Reason: Pain Score 6-10) 7 Days Qty: 42 0RF Primary Care Provider: Finn Ferrell Referrals: Finn Ferrell MD [Primary Care Provider] - Disposition Disposition: Acute Care Hospital Discharge Location: [facility] What to do if you have Problems For any increased pain, shortness of breath, bleeding, nausea or vomiting, chestpain, or any unexpected problems, contact your Primary Care Provider. Call [facility] ([phone]) or report to the closest Emergency Room. Call 911 if necessary. 12/06/22413 <Electronically signed by Kraig Bautista DO> Cosigner Signature (if applicable): CC: Dr. Finn Ferrell MD ~ Signed [facility] Work Phone: [phone] History of Present illness Narrative* Zoie Gonzales MD - 12/03/2022 2:30 PM EDT [facility] Cardiology [facility] [address] [place] [id number] Dept: [phone] Dept Visit type: Established : 1955 Chief Complaint: Chief Complaint Patient presents with Follow-up History of Present Illness: Shannon Olson is a 67 y.o. male Today I [...] Past Medical History: Diagnosis Date Angina pectoris ([facility]) Anxiety Arrhythmia A-fib Asthma CAD (coronary artery disease) Cerebral artery occlusion with cerebral infarction ([facility]) COPD (chronic obstructive pulmonary disease) ([facility]) Depression WATTS (dyspnea on exertion) Fatigue GERD (gastroesophageal reflux disease) History of cardioversion 05/07/2016 Successful conversion of a-fib to SR History of left heart catheterization 05/07/2016 60% stenosis right posterior descending, patent stents in prox, mid & distal RCA, patent stentsin med LCx. Findings unchanged from previous study. 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 [facility] current use of antiarrhythmic drug [facility] current use of anticoagulant NSTEMI (non-ST elevated myocardial infarction) ([facility]) ([facility]) 12/2012 NSTEMI (non-ST elevated myocardial infarction) ([facility]) ([facility]) 05/2014 Obesity Old PA (myocardial infarction) HIPOLITO (obstructive sleep apnea) HIPOLITO on CPAP PAF (paroxysmal atrial fibrillation) ([facility]) ([facility]) Rheumatoid arthritis(714.0) ([facility]) ST segment elevation myocardial infarction (STEMI) of anterolateral wall, subsequent episode of care ([facility]) ([facility]) TIA (transient ischemic attack) Past Surgical History Past Surgical History: Procedure Laterality Date CAPSULOTOMY, HAND 05/07/2016 CARDIAC PROCEDURE Left 05/2015 CARDIAC PROCEDURE Left 06/03/2017 CARDIAC PROCEDURE Bilateral 01/2010 CARDIAC PROCEDURE Left 09/05/2019 PCI to distal RCA and PL branch CHOLECYSTECTOMY 10/30/2019 CORONARY ANGIOPLASTY WITH STENT PLACEMENT Left 11/2006 restent RCA, PHU to CX CORONARY ANGIOPLASTY WITH STENT PLACEMENT Left 05/2014 PTCA /cuttung balloon to instent restenosis RCA CORONARY ANGIOPLASTY WITH STENT PLACEMENT Left 10/2006 DESto prox Rt PAV, mid & dist RCA CORONARY ANGIOPLASTY WITH STENT PLACEMENT Left 11/2014 PHU to RCA CORONARY ANGIOPLASTY WITH STENT PLACEMENT Left 10/2007 PHU to Prox Rt PAV, mid-dist RCA CORONARY ANGIOPLASTY WITH STENT PLACEMENT Left 03/2009 PHU to mid RCA CORONARY ANGIOPLASTY WITH STENT PLACEMENT Left 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 RCA CORONARY ANGIOPLASTY WITH STENT PLACEMENT Left 10/2013 PHU to prox & mid RCA CORONARY ANGIOPLASTY WITH STENT PLACEMENT Left 12/2007 PHU to LAD CORONARY ANGIOPLASTY WITH STENT PLACEMENT Bilateral 03/17/2021 Phu to the Mid RCA, and the Distal RCA CORONARY ANGIOPLASTY WITH STENT PLACEMENT Left 12/2012 PHU to mid RCA & prox-mid Rt GRACE [...] Final Assessment and Plan: 1. CAD in [place] artery 2. Primary hypertension 3. NSTEMI (non-ST elevated myocardial infarction) ([facility]) ([facility]) 4. PAF (paroxysmal atrial fibrillation) ([facility]) ([facility]) 5. Other hyperlipidemia My summary and recommendation [...] in about a month. documented in this [facility]06[facility]2023 History of Present illness Narrative* Chris Boyce MD - 11/11/2022 10:15 AM EDT [facility]- PULMONARY AND SLEEP MEDICINE ESTABLISHED PATIENT VISIT 11/12/2022 CHIEF COMPLAINT/REASON FOR REFERRAL: Chief Complaint Patient presents with Follow-up History of Present Illness: Shannon Olson is a 67-year-old man with medical history [...] evening diuretic dose around 8 or 9 PM.He lives by himself and has no bed partner. He knows he snores because previous partners have told night. He also notes snort/gasp arousals. Does report occasional drowsy driving and nodding off behind the wheel but denies car accidents. Reports chronic excessive daytime somnolence. 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 Orders Placed This Encounter Procedures Polysomnography Chris Boyce MD Pulmonary, Critical Care, and Sleep [...] Past Medical History: Diagnosis Date Angina pectoris ([facility]) Anxiety Arrhythmia A-fib Asthma CAD (coronary artery disease) Cerebral artery occlusion with cerebral infarction ([facility]) COPD (chronic obstructive pulmonary disease) ([facility]) Depression WATTS (dyspnea on exertion) Fatigue GERD (gastroesophageal reflux disease) History of cardioversion 05/07/2016 Successful conversion of a-fib to SR History of left heart catheterization 05/07/2016 60% stenosis right posterior descending, patent stents in prox, mid & distal RCA, patent stentsin med LCx. Findings unchanged from previous study. 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 [facility] current use of antiarrhythmic drug [facility] current use of anticoagulant NSTEMI (non-ST elevated myocardial infarction) ([facility]) ([facility]) 12/2012 NSTEMI (non-ST elevated myocardial infarction) ([facility]) ([facility]) 05/2014 Obesity Old PA (myocardial infarction) HIPOLITO (obstructive sleep apnea) HIPOLITO on CPAP PAF (paroxysmal atrial fibrillation) ([facility]) ([facility]) Rheumatoid arthritis(714.0) ([facility]) ST segment elevation myocardial infarction (STEMI) of anterolateral wall, subsequent episode of care ([facility]) ([facility]) TIA (transient ischemic attack) Past Surgical History Past Surgical History: Procedure Laterality Date CAPSULOTOMY, HAND 05/07/2016 CARDIAC PROCEDURE Left 05/2015 CARDIAC PROCEDURE Left 06/03/2017 CARDIAC PROCEDURE Bilateral 01/2010 CARDIAC PROCEDURE Left 09/05/2019 PCI to distal RCA and PL branch CHOLECYSTECTOMY 10/30/2019 CORONARY ANGIOPLASTY WITH STENT PLACEMENT Left 11/2006 restent RCA, PHU to CX CORONARY ANGIOPLASTY WITH STENT PLACEMENT Left 05/2014 PTCA /cuttung balloon to instent restenosis RCA CORONARY ANGIOPLASTY WITH STENT PLACEMENT Left 10/2006 DESto prox Rt PAV, mid & dist RCA CORONARY ANGIOPLASTY WITH STENT PLACEMENT Left 11/2014 PHU to RCA CORONARY ANGIOPLASTY WITH STENT PLACEMENT Left 10/2007 PHU to Prox Rt PAV, mid-dist RCA CORONARY ANGIOPLASTY WITH STENT PLACEMENT Left 03/2009 PHU to mid RCA CORONARY ANGIOPLASTY WITH STENT PLACEMENT Left 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 RCA CORONARY ANGIOPLASTY WITH STENT PLACEMENT Left 10/2013 PHU to prox & mid RCA CORONARY ANGIOPLASTY WITH STENT PLACEMENT Left 12/2007 PHU to LAD CORONARY ANGIOPLASTY WITH STENT PLACEMENT Bilateral 03/17/2021 Phu to the Mid RCA, and the Distal RCA CORONARY ANGIOPLASTY WITH STENT PLACEMENT Left 12/2012 PHU to mid RCA & prox-mid Rt GRACE [...] call immediately., Disp: 25 tablet, Rfl: 3 nitroglycerin [...] Results: No results found for: FEV1, FVC, QQA0JAK, TLC, DLCO No results found for: FEV1, FVC, SWC6FTY, TLC, DLCO documented in this [facility]21[facility]2023 Instructions* Patient Instructions* Marii Kumar Rai, MA - 11/11/2022 10:15 AM EDT YOUR APPOINTMENT TODAY WAS WITH THE [facility], COPD [facility]IN[facility], PULMONARY AND SLEEP MEDICINE OFFICE. PLEASE CALL OUR OFFICE AT [phone] IF YOU HAVE NOT RECEIVED YOUR TEST [...] to make improvements. COVID-19 VACCINATION INFORMATION: PH. [phone] [email or web address] [facility] Central Scheduling [phone] [facility] Sleep Scheduling [phone] documented in this [facility] History of Present illness Narrative* DANIELLE Bernstein CNP - 10/14/2022 9:33 AM EDT error documented in this [facility] History of Present illness Narrative* DANIELLE Bernstein CNP - 10/01/2022 2:01 PM EDT Patient will need outstanding BNP and D.Dimer completed. I have also added repeat BMP as he is now on higher dose lasix starting this week documented in this [facility]2023 History of Present illness Narrative* DANIELLE Bernstein CNP - 09/28/2022 1:30 PM EDT Images from the original note were not included. [facility] [address] [facility] [address] Dept: [phone] Dept Loc: [phone] Visit type: Established : 1955 Reason for Visit: Edema (Shortness of breath./Lower ext edema following shoulder surgery ) Assessment and Plan 1. Coronary artery disease involving [place] coronary artery of [place] heart without angina pectoris -Stable. No anginal [...] Will obtain labs for survailence. Will obtain D.dimerfor completion considering recent surgery. No chest pain no hypoxia. - NT PRO BNP Follow up for Follow up in 2 weeks . Subjective HPI Shannon Olson is a 66 year old male seen today due to edema. He has history of PAF, HTN, COPD, TIA,HLD and CAD s/p multiple PCI. He is known to Dr. Gonzales. Most recent cath 11/2021 showed: Patent stent in proximal LAD. Patent stent in proximal-mid LCx. MidRCA instent restenosis with 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 and left to right collaterals. There was unsuccessful attempt to revascularize mid RCA instent restenosis 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.Guidewire was passed across the occlusion and multiple balloon inflations without flow into thedistal vessels. (review of the last cath shows very poor vessels distal to the stents). Collateral flow from the LCA was documented to the small PDA and PLV of the RCA. Recommendations at that time were optimal medical therapy for CAD and maximize the antianginals. Continue with plavix and eliquis. 06/2022: most recent visit with printed circuit board panels trimmer: chest pain with activity that relived with rest. Imdurwas increased. 09/18/2022: Patient called office with complaint [...] in chair with legs elevated some nights. Emmett in legs is less in the AM [...] He has no complaints of chest pain (norecent Nitroglycerin use), palpitations or presyncope. + dizziness [...] Past Medical History: Diagnosis Date Angina pectoris ([facility]) Anxiety Arrhythmia A-fib Asthma CAD (coronary artery disease) Cerebral artery occlusion with cerebral infarction ([facility]) COPD (chronic obstructive pulmonary disease) ([facility]) Depression WATTS (dyspnea on exertion) Fatigue GERD (gastroesophageal reflux disease) History of cardioversion 05/07/2016 Successful conversion of a-fib to SR History of left heart catheterization 05/07/2016 60% stenosis right posterior descending, patent stents in prox, mid & distal RCA, patent stentsin med LCx. Findings unchanged from previous study. 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 [facility] current use of antiarrhythmic drug [facility] current use of anticoagulant NSTEMI (non-ST elevated myocardial infarction) ([facility]) ([facility]) 12/2012 NSTEMI (non-ST elevated myocardial infarction) ([facility]) ([facility]) 05/2014 Obesity Old PA (myocardial infarction) HIPOLITO (obstructive sleep apnea) HIPOLITO on CPAP PAF (paroxysmal atrial fibrillation) ([facility]) ([facility]) Rheumatoid arthritis(714.0) ([facility]) ST segment elevation myocardial infarction (STEMI) of anterolateral wall, subsequent episode of care ([facility]) ([facility]) TIA (transient ischemic attack) Social [...] WITH STENT PLACEMENT Left 11/2006 restent RCA, PHU to CX CORONARY ANGIOPLASTY WITH STENT PLACEMENT Left 05/2014 PTCA /cuttung balloon to instent restenosis RCA CORONARY ANGIOPLASTY WITH STENT PLACEMENT Left 10/2006 DESto prox Rt PAV, mid & dist RCA CORONARY ANGIOPLASTY WITH STENT PLACEMENT Left 11/2014 PHU to RCA CORONARY ANGIOPLASTY WITH STENT PLACEMENT Left 10/2007 PHU to Prox Rt PAV, mid-dist RCA CORONARY ANGIOPLASTY WITH STENT PLACEMENT Left 03/2009 PHU to mid RCA CORONARY ANGIOPLASTY WITH STENT PLACEMENT Left 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 RCA CORONARY ANGIOPLASTY WITH STENT PLACEMENT Left 10/2013 PHU to prox & mid RCA CORONARY ANGIOPLASTY WITH STENT PLACEMENT Left 12/2007 PHU to LAD CORONARY ANGIOPLASTY WITH STENT PLACEMENT Bilateral 03/17/2021 Phu to the Mid RCA, and the Distal RCA CORONARY ANGIOPLASTY WITH STENT PLACEMENT Left 12/2012 PHU to mid RCA & prox-mid Rt GRACE [...] 12/01/2021 HGB 13.1 12/01/2021 MCV 90.3 12/01/2021 [id number] Score for Atrial Fibrillation Stroke Risk Risk Factors C CHF No, 0 H HTN Yes, 1 A2 Age >= 75 No, 0 D DM No, 0 S2 Prior Stroke/TIA Yes, 1 V Vascular Disease Yes, 1 A Age 65-74 Yes, 1 Sc Sex Male, 0 [id number] Score 4 Calculator: [id number] risk stratification score for estimation of stroke risk for nonvalvular atrial fibrillation in adults - UpToDate Atrial fibrillation in adults: Use of oral anticoagulants - UpToDate DANIELLE Bernstein CNP documented in this [facility]05-08-2023 Instructions* Patient Instructions* DANIELLE Bernstein CNP - 09/28/2022 1:30 PM EDT -Increase lasix to 80mg twice daily -Call office with update -Weigh yourself daily first thing in the AM after urinating. Wear similar clothes. Keep log with date. Call office if you have greater than 3lb weight gain in one day or greater or 5lb weight gain inone week. -Call office if increased shortness of breath, difficulty laying flat to sleep at night due to shortness of breath and/or increased swelling in legs or abdomen. Call to schedule Echo. documented in this [facility]03[facility]31[facility] Cornelius [facility] August 21, 2022 11:25am Note Date/Time August 21, 2022 11: 24am [facility] Medical Records Department [address] [place] [address] Discharge Summary 08/21/22 1122 MR#: [id number] Acct: [id number] Name: SHANNON OLSON Rep #:[id number] : 1955 66 From: James miller DO PCP: Care Physician,No Primary Status :ADM MYRTLE Location: [place] [address] Providers Date of Admission: 08/20/22 Primary Care Physician: No Primary Care Phys Consultations 08/20/22 11:44 Consult: Hospitalist Routine Consulting Provider: Cooper Ward Reason for Consult: Medical management s/p left rotator cuff repair EMERGENT Consult: No MD Notified: Yes Date Notified: 08/20/22 Time Notified: 13:23 Method of Notification: Text Reason For Visit: LEFT SHOULDER ARTHROSCOPY RC REPAIR... Diagnosis Discharge Diagnosis (1) Rotator cuff disorder: Status: Acute Code(s): M67.919 - Unspecified disorder of synovium and tendon, unspecified shoulder Plan: POD#1 s/p left shoulder arthroscopy with rotator cuff repair, SCD, DCE, biceps tenotomy - Pain control - Medicine following for medical management - DVT PPX -restarting home Eliquis and Plavix today, SCDs, early mobilization -Anticipate discharge to home today if okay with internal medicine. Medications at Discharge Home Medications amlodipine 5 mg tablet (Norvasc) 5 mg PO DAILY blood pressure 10/05/19 furosemide 40 mg tablet 40 mg PO DAILY diuretic 10/05/19 minoxidil 10 mg tablet 5 mg PO BID blood pressure 10/05/19 nitroglycerin 0.4 mg sublingual tablet 0.4 mg sublingual Q5-15M PRN cp 10/05/19 amiodarone 200 mg tablet 200 mg PO DAILY HEART 04/01/20 lisinopril 20 mg tablet 20 mg PO DAILY HTN 10/27/20 spironolactone 25 mg tablet (Aldactone) 25 mg PO DAILY diuretic 10/27/20 atorvastatin 80 mg tablet 80 mg PO QHS #30 tabs 10/31/20 clopidogrel 75 mg tablet (Plavix) 75 mg PO DAILY 09/09/21 apixaban 5 mg tablet (Eliquis) 5 mg PO BID 10/30/21 isosorbide mononitrate 30 mg tablet,extended release 24 hr 30 mg PO BID 01/07/22 pantoprazole 40 mg tablet,delayed release (Protonix) 40 mg PO QAM #90 tabs 04/01/22 oxycodone 5 mg tablet 10 mg PO Q6H PRN PRN Pain Score 6-10 7 days #42 tabs 08/21/22 Hospital Course Summary of Care Provided Minutes Spent on Discharge: 15 Hospital Course: Patient underwent uncomplicated left shoulder arthroscopy with rotator cuff repair, distal clavicle excision, subacromial decompression and biceps tenotomy on 08/20/22. Patient tolerated the procedure well without complication. He was placed in observation overnight for medical monitoring due to advanced history of coronary artery disease. He did well in the immediate postoperative period. Hospitalist consult was placed for medical management during his stay. No medical or surgical Cases were encountered throughout his stay. He was able be safely discharged to home on postoperative day #1. Physical Exam Narrative General - A&Ox3, NAD. VSS/AF. Left upper Extremity -UltraSling in place. SILT & motor intact in radial, ulnar, musculocutaneous, axillary, and median nerve distributions. Radial, ulnar pulses 2+. Compartments soft and compressible. BCR in finger tips. Incisional dressing C/D/I. Weight / BMI Weight Weight: 313 lb Body Mass Index (BMI) 39.6 ABG / Lab / Microbiology Data Result Diagrams: 08/21/22 06:11 08/12/22 13:01 Laboratory: Laboratory Results - last 24 hr 08/21/22 06:11: WBC 15.9 H, RBC 4.11 L, Hgb 12.1 L, Hct 37.9 L, MCV 92.2, MCH 29.4, MCHC 31.9 L, RDW Std Deviation 47.8 H, RDW Coeff of Santhosh 14.1, Plt Count 252, MPV 10.1, Immature Gran % (Auto) 0.400, Neut % (Auto) 90.5 H, Lymph % (Auto) 4.2 L, [place] % (Auto) 4.8, Eos % (Auto) 0.0, Baso % (Auto) 0.1, Absolute Neuts (auto) 14.4 H, Absolute Lymphs (auto) 0.67 L, Nucleated RBC % 0 Meaningful Use Info Meaningful Use Diagnoses (Choose all that apply): None applicable Discharge Plan Admission Admit Date/Time: 08/20/22 11:41 Primary Reason for Your Visit: Left shoulder arthoscopy Attending Provider: James Cornelius Primary Care Provider: Care Physician,No Primary Consulting Providers: Coopre Hayes ; Xiao Medina ; Cooper Ward Instructions Additional Instructions / Restrictions: Follow preprinted instructions from your surgeons office Discharge Orders/Prescriptions Prescriptions: New oxycodone 5 mg Tablet 10 mg PO Q6H PRN PRN (Reason: Pain Score 6-10) 7 Days Qty: 42 0RF Continued nitroglycerin 0.4 mg tablet, sublingual 0.4 mg SUBLINGUAL Q5-15M PRN (Reason: cp) Rx Instructions: do not exceed 3 doses per episode amlodipine [Norvasc] 5 mg tablet 5 mg PO DAILY furosemide 40 mg tablet 40 mg PO DAILY Label Comments: TAKE ONE TABLET BY MOUTH EVERY DAY minoxidil 10 mg tablet 5 mg PO BID Label Comments: TAKE ONE-HALF TABLET BY MOUTH TWICE DAILY Eliquis 5 mg tablet 5 mg PO BID pantoprazole [Protonix] 40 mg tablet,delayed release (DR/EC) 40 mg PO QAM Qty: 90 3RF amiodarone 200 MG tablet 200 mg PO DAILY lisinopril 20 mg Tablet 20 mg PO DAILY spironolactone [Aldactone] 25 mg Tablet 25 mg PO DAILY atorvastatin 80 mg Tablet 80 mg PO QHS Qty: 30 0RF clopidogrel [Plavix] 75 mg Tablet 75 mg PO DAILY isosorbide mononitrate 30 mg Tablet Extended Release 24 Hr 30 mg PO BID Referrals / Follow Up: Care Physician,No Primary [Primary Care Provider] - Disposition Disposition (needs filled in before D/C Order can be placed): Home, Self Care 08/21/22 1125 <Electronically signed by James Cornelius DO> Cosigner Signature (if applicable): CC: Dr. James Cornelius DO; No Primary Care Physician~ Signed [facility] Work Phone: [phone]) 646-549603-31-[address] Cornelius [facility] August 21, 2022 11:22am Note Date/Time August 21, 2022 11: 22am [facility] Medical Records Department [address] [place] [address] Instructions for Home/Discharge Instructions 08/21/22 1122 MR#: [id number] Acct: [id number] Name: SHANNON OLSON Rep #:[id number] : 1955 66 From: James miller DO PCP: Care Physician,No Primary Status :ADM MYRLTE Discharge Instructions Follow Up Care Test Results: Test results from this visit will be discussed in further detail at your follow- up appointment, if applicable. Discharge Plan Admission Admit Date/Time: 08/20/22 11:41 Primary Reason for Your Visit: Left shoulder arthoscopy Attending Provider: James Cornelius Primary Care Provider: Care Physician,No Primary Consulting Providers: Cooper Hayes ; Xiao Medina ; Cooper Ward Instructions Additional Instructions / Restrictions: Follow preprinted instructions from your surgeons office Discharge Orders/Prescriptions Prescriptions: New oxycodone 5 mg Tablet 10 mg PO Q6H PRN PRN (Reason: Pain Score 6-10) 7 Days Qty: 42 0RF Continued nitroglycerin 0.4 mg tablet, sublingual 0.4 mg SUBLINGUAL Q5-15M PRN (Reason: cp) Rx Instructions: do not exceed 3 doses per episode amlodipine [Norvasc] 5 mg tablet 5 mg PO DAILY furosemide 40 mg tablet 40 mg PO DAILY Label Comments: TAKE ONE TABLET BY MOUTH EVERY DAY minoxidil 10 mg tablet 5 mg PO BID Label Comments: TAKE ONE-HALF TABLET BY MOUTH TWICE DAILY Eliquis 5 mg tablet 5 mg PO BID pantoprazole [Protonix] 40 mg tablet,delayed release (DR/EC) 40 mg PO QAM Qty: 90 3RF amiodarone 200 MG tablet 200 mg PO DAILY lisinopril 20 mg Tablet 20 mg PO DAILY spironolactone [Aldactone] 25 mg Tablet 25 mg PO DAILY atorvastatin 80 mg Tablet 80 mg PO QHS Qty: 30 0RF clopidogrel [Plavix] 75 mg Tablet 75 mg PO DAILY isosorbide mononitrate 30 mg Tablet Extended Release 24 Hr 30 mg PO BID Referrals / Follow Up: Care Physician,No Primary [Primary Care Provider] - Disposition Disposition (needs filled in before D/C Order can be placed): Home, Self Care 08/21/22 1122<Electronically signed by James Cornelius DO>James Cornelius DO CC: Dr. Cooper Hayes MD; Dr. Cooper Ward DO; Dr. Xiao Medina MD; No Primary Care Physician ~ Signed [facility] Work Phone: [phone] Medina [facility] August 21, 2022 10:13am Note Date/Time August 21, 2022 10: 13am [facility] Medical Records Department [address] [place] [id number] Progress Note - Hospitalist 08/21/22 1009 MR#: [id number] Acct: [id number] Name: SHANNON OLSON Rep #:[id number] : 1955 66 From: Xiao Medina MD PCP: Care Physician,No Primary Status :ADM MYRTLE Location: [place] [address] Reason for Visit Reason for Visit: Diagnoses Unspecified disorder of synovium and tendon, unspecified shoulder (08/20/22) Encounter for other preprocedural examination (08/20/22) Subjective Subjective Reports feeling better this morning, pain improved. Reports he did have pain earlier when sling was being adjusted and that made his chest feels slightly tight but it completely resolved. Reports that that is not unusual for him and has had no new symptoms. Breathing improved from yesterday after Lasix dose. No other complaints Objective Data Objective Data Vital Signs: Vital Signs Temp Pulse Resp BP Pulse Ox O2 Del Method O2 Flow Rate 97.8 F 83 18 131/71 H 98 Room Air 2 08/21/22 09:16 08/21/22 09:16 08/21/22 09:16 08/21/22 09:16 08/21/22 09:16 08/21/22 09:16 08/21/22 06:12 Oxygen Flow Rate (L/min) 2 Oxygen Delivery Method Room Air Weight: 141.974 kg Body Mass Index (BMI) 39.6 Intake & Output: Intake and Output for Last 24 Hours 08/19/22 08/20/22 08/21/22 23:59 23:59 23:59 Intake Total 115 / 115 600 / 600 Balance 115 / 115 600 / 600 Lab / Micro Data Result Diagrams: 08/21/22 06:11 08/12/22 13:01 Labs: Laboratory Results - last 24 hr 08/21/22 06:11: WBC 15.9 H, RBC 4.11 L, Hgb 12.1 L, Hct 37.9 L, MCV 92.2, MCH 29.4, MCHC 31.9 L, RDW Std Deviation 47.8 H, RDW Coeff of Santhosh 14.1, Plt Count 252, MPV 10.1, Immature Gran % (Auto) 0.400, Neut % (Auto) 90.5 H, Lymph % (Auto) 4.2 L, [place] % (Auto) 4.8, Eos % (Auto) 0.0, Baso % (Auto) 0.1, Absolute Neuts (auto) 14.4 H, Absolute Lymphs (auto) 0.67 L, Nucleated RBC % 0 Physical Exam Narrative General: Alert, oriented, no apparent distress HEENT: Atraumatic, normocephalic Eyes: Anicteric, normal conjunctiva, extraocular movements grossly intact Neck: Supple Respiratory: no wheezes or rhonchi appreciated, normal respiratory effort Cardiovascular: Irregularly irregular, not tachycardic GI: Soft, nontender Extremities: Lower extremity edema improved Musculoskeletal: Left upper extremity in sling Neuro: No overt focal neurological deficits Skin: No rashes appreciated Psych: Cooperative Assessment & Plan Assessment/Plan (1) Rotator cuff disorder: PLAN: Plan #Left rotator cuff tear -With left shoulder subacromial impingement syndrome, left acromioclavicular osteoarthritis, SLAP tear of left shoulder with biceps tendinosis -on 08/20 he had He had left shoulder subacromial decompression, arthroscopic biceps tenotomy, distal clavicle excision, and diagnostic and operative left shoulder arthroscopy with rotator cuff repair w/ Dr. Cornelius -Postop management per primary #History of untreated HIPOLITO -Reports he does not use BiPAP or CPAP because they never fit his face -We will benefit from outpatient evaluation and resumption of this -Given O2 dropped when napping in bed will place order for BiPAP nightly -We will also place order for incentive spirometry -Can consider neb treatment if any increased SOB or decrease in O2 Sat -Giving dose of lasix right now since he didn't get his AM dose. -Daily weights -08/21: Refused BiPAP overnight but O2 sats stable today and patient feeling well. Recommend outpatient sleep study. #Atrial fibrillation -Apixaban order entered with resume date tomorrow -Continue amiodarone #History of coronary artery disease -Continue statin, resume Plavix once cleared by surgery to do so #Hypertension -Resume amlodipine, Imdur, lisinopril, minoxidil -Continue furosemide and spironolactone -We will give dose of Lasix now due to SPO2 somewhat low though suspect that sleep apnea but does have trace edema in his lower extremities and said that happens when he does not take his medication #GERD -Continue PPI #DVT ppx: Eliquis restarted today DISPO: Pt doing better today, vitals stable. No active SOB or chest pain. 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 Cornelius [facility] August 21, 2022 7:19am Note Date/Time August 21, 2022 7:1 9am [facility] Medical Records Department [address] [place] [id number] Progress Note - Orthopedic 08/21/2217 MR#: [id number] Acct: [id number] Name: SHANNON OLSON Rep #:[id number] : 1955 66 From: James miller DO PCP: Care Physician,No Primary Status :ADM MYRTLE Location: MS3 MC013-4 Subjective Subjective Patient seen and examined. Pain controlled current pain regimen. Reported somechest tightness overnight which quickly resolved and is asymptomatic this morning. Denies shortness of breath. Denies fevers, chills, nausea or vomiting. Objective Data Objective Data Vital Signs: Vital Signs Temp Pulse Resp BP Pulse Ox O2 Del Method O2 Flow Rate 98 F 54 L 18 150/80 H 98 Nasal Cannula 2 08/21/22 06:12 08/21/22 06:12 08/21/22 06:12 08/21/22 06:12 08/21/22 06:12 08/21/22 06:12 08/21/22 06:12 Oxygen Flow Rate (L/min) 2 Oxygen Delivery Method Nasal Cannula Weight: 313 lb Body Mass Index (BMI) 39.6 Intake & Output: Intake and Output for Last 24 Hours 08/19/22 08/20/22 08/21/22 23:59 23:59 23:59 Intake Total 115 / 115 600 / 600 Balance 115 / 115 600 / 600 Lab / Micro Data Result Diagrams: 08/21/22 06:11 08/12/22 13:01 Labs: Laboratory Results - last 24 hr 08/21/22 06:11: WBC 15.9 H, RBC 4.11 L, Hgb 12.1 L, Hct 37.9 L, MCV 92.2, MCH 29.4, MCHC 31.9 L, RDW Std Deviation 47.8 H, RDW Coeff of Santhosh 14.1, Plt Count 252, MPV 10.1, Immature Gran % (Auto) 0.400, Neut % (Auto) 90.5 H, Lymph % (Auto) 4.2 L, [place] % (Auto) 4.8, Eos % (Auto) 0.0, Baso % (Auto) 0.1, Absolute Neuts (auto) 14.4 H, Absolute Lymphs (auto) 0.67 L, Nucleated RBC % 0 Physical Exam Narrative General - A&Ox3, NAD. VSS/AF. Left upper Extremity -UltraSling in place. SILT & motor intact in radial, ulnar, musculocutaneous, axillary, and median nerve distributions. Radial, ulnar pulses 2+. Compartments soft and compressible. BCR in finger tips. Incisional dressing C/D/I. Assessment & Plan Assessment/Plan (1) Rotator cuff disorder: PLAN: POD#1 s/p left shoulder arthroscopy with rotator cuff repair, SCD, DCE, biceps tenotomy - Pain control - Medicine following for medical management - DVT PPX -restarting home Eliquis and Plavix today, SCDs, early mobilization -Anticipate discharge to home today if okay with internal medicine. 08/21/22 0719 <Electronically signed by James Cornelius DO> Cosigner Signature (if applicable): CC: ~ Signed [facility] Work Phone: 1(159) 661-333703-30-[address] Medina [facility] August 20, 2022 2:48pm Note Date/Time August 20, 2022 2:3 7pm [facility] Medical Records Department [address] [place] [address] Progress Note - Hospitalist 08/20/22 1436 MR#: [id number] Acct: [id number] Name: SHANNON OLSON Rep #:[id number] : 1955 66 From: Xiao Medina MD PCP: Care Physician,No Primary Status :ADM MYRTLE Location: [place] [address] Reason for Visit Reason for Visit: Diagnoses Encounter for other preprocedural examination (08/20/22) Subjective Subjective Mr. Olson is a 66-year-old male with a history of atrial fibrillation, coronaryartery disease, CVA, GERD, RA, HIPOLITO who presented to [facility] 08/20/2022 for a left shoulder rotator cuff repair. His preop diagnoses were left shoulder rotator cuff tear, left shoulder subacromial impingement syndrome,left acromial clavicular osteoarthritis, SLAP tear left shoulder with biceps tendinosis. He had left shoulder subacromial decompression, arthroscopic bicepstenotomy, distal clavicle excision, and diagnostic and operative left shoulder arthroscopy with rotator cuff repair. Hospitalist consulted for medical management. In postop and he reports feeling like he got run over by a truck but is slowly starting to feel better. Pain is fair at time of evaluation. HasO2 in place and reports every time he falls asleep his oxygen starts to dip so he was placed on 2 L of O2 during our conversation he was 95% while awake. Reports sometimes he will have some waxing and waning almost tight feeling in his chest that undulate's, denies feeling short of breath or any overt chest pain and reports he thinks it was the anesthesia and he is slowly feeling better. Feels he has some trace edema in his lower extremities because he did not take his water pills this morning and did not voice any other complaints. Objective Data Objective Data Vital Signs: Vital Signs Temp Pulse Resp BP Pulse Ox O2 Del Method 98.7 F 72 18 132/66 H 92 Room Air 08/20/22 13:18 08/20/22 13:18 08/20/22 13:18 08/20/22 13:18 08/20/22 14:07 08/20/22 14:07 Oxygen Delivery Method Room Air Weight: 138 kg Body Mass Index (BMI) 38.5 Intake & Output: Intake and Output for Last 24 Hours 08/18/22 08/19/22 08/20/22 23:59 23:59 23:59 Intake Total 115 / 115 Balance 115 / 115 Lab / Micro Data Result Diagrams: 08/12/22 13:01 08/12/22 13:01 Physical Exam Narrative General: Alert, oriented, no apparent distress HEENT: Atraumatic, normocephalic Eyes: Anicteric, normal conjunctiva, extraocular movements grossly intact Neck: Supple Respiratory: Somewhat diminished at the bases which seems to be secondary to body habitus, no wheezes or rhonchi appreciated, normal respiratory effort Cardiovascular: Irregularly irregular, not tachycardic GI: Soft, nontender Extremities: Trace lower extremity edema Musculoskeletal: Left upper extremity in sling Neuro: No overt focal neurological deficits Skin: No rashes appreciated Psych: Cooperative Assessment & Plan Assessment/Plan (1) Rotator cuff disorder: PLAN: Plan #Left rotator cuff tear -With left shoulder subacromial impingement syndrome, left acromioclavicular osteoarthritis, SLAP tear of left shoulder with biceps tendinosis -on 08/20 he had He had left shoulder subacromial decompression, arthroscopic biceps tenotomy, distal clavicle excision, and diagnostic and operative left shoulder arthroscopy with rotator cuff repair w/ Dr. Cornelius -Postop management per primary #History of untreated HIPOLITO -Reports he does not use BiPAP or CPAP because they never fit his face -We will benefit from outpatient evaluation and resumption of this -Given O2 dropped when napping in bed will place order for BiPAP nightly -We will also place order for incentive spirometry -Can consider neb treatment if any increased SOB or decrease in O2 Sat -Giving dose of lasix right now since he didn't get his AM dose. -Daily weights #Atrial fibrillation -Apixaban order entered with resume date tomorrow -Continue amiodarone #History of coronary artery disease -Continue statin, resume Plavix once cleared by surgery to do so #Hypertension -Resume amlodipine, Imdur, lisinopril, minoxidil -Continue furosemide and spironolactone -We will give dose of Lasix now due to SPO2 somewhat low though suspect that sleep apnea but does have trace edema in his lower extremities and said that happens when he does not take his medication #GERD -Continue PPI #DVT ppx: At the discretion of primary Xiao Medina MD Charges/Coding Visit Charges Office Visits / Consults: 33156 OP Consult L3 08/20/22 1443 <Electronically signed by Xiao Medina MD> Cosigner Signature (if applicable): CC: ~ Signed [facility] Work Phone: 1(630) 482-382103-30-2023 Procedure [facility] 07-06-2022 History of Present illness Narrative* Zoie Gonzales MD - 07/06/2022 2:45 PM EST [facility] Cardiology [address] [address] Dept: [phone] Dept Loc: [phone] Visit type: Established : 1955 Chief Complaint: Chief Complaint Patient presents with 6 Month Follow-up History of Present Illness: Shannon Olson is a 66 y.o. male Past Medical History: Past Medical History: Diagnosis Date Angina pectoris (HCC) Anxiety Arrhythmia A-fib Asthma CAD (coronary artery disease) Cerebral artery occlusion with cerebral infarction (CMS/HCC) (HCC) COPD (chronic obstructive pulmonary disease) (HCC) Depression WATTS (dyspnea on exertion) Fatigue GERD (gastroesophageal reflux disease) History of cardioversion 05/07/2016 Successful conversion of a-fib to SR History of left heart catheterization 05/07/2016 60% stenosis right posterior descending, patent stents in prox, mid & distal RCA, patent stentsin med LCx. Findings unchanged from previous study. 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) ([facility]) 12/2012 NSTEMI (non-ST elevated myocardial infarction) ([facility]) ([facility]) 05/2014 Obesity Old [place] (myocardial infarction) HIPOLITO (obstructive sleep apnea) HIPOLITO on CPAP PAF (paroxysmal atrial fibrillation) ([facility]) ([facility]) Rheumatoid arthritis(714.0) ([facility]) ST segment elevation myocardial infarction (STEMI) of anterolateral wall, subsequent episode of care ([facility]) ([facility]) TIA (transient ischemic attack) Past Surgical History Past Surgical History: Procedure Laterality Date CAPSULOTOMY, HAND 05/07/2016 CARDIAC PROCEDURE Left 05/2015 CARDIAC PROCEDURE Left 06/03/2017 CARDIAC PROCEDURE Bilateral 01/2010 CARDIAC PROCEDURE Left 09/05/2019 PCI to distal RCA and PL branch CHOLECYSTECTOMY 10/30/2019 CORONARY ANGIOPLASTY WITH STENT PLACEMENT Left 11/2006 restent RCA, PHU to CX CORONARY ANGIOPLASTY WITH STENT PLACEMENT Left 05/2014 PTCA /cuttung balloon to instent restenosis RCA CORONARY ANGIOPLASTY WITH STENT PLACEMENT Left 10/2006 DESto prox Rt PAV, mid & dist RCA CORONARY ANGIOPLASTY WITH STENT PLACEMENT Left 11/2014 PHU to RCA CORONARY ANGIOPLASTY WITH STENT PLACEMENT Left 10/2007 PHU to Prox Rt PAV, mid-dist RCA CORONARY ANGIOPLASTY WITH STENT PLACEMENT Left 03/2009 PHU to mid RCA CORONARY ANGIOPLASTY WITH STENT PLACEMENT Left 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 RCA CORONARY ANGIOPLASTY WITH STENT PLACEMENT Left 10/2013 PHU to prox & mid RCA CORONARY ANGIOPLASTY WITH STENT PLACEMENT Left 12/2007 PHU to LAD CORONARY ANGIOPLASTY WITH STENT PLACEMENT Bilateral 03/17/2021 Phu to the Mid RCA, and the Distal RCA CORONARY ANGIOPLASTY WITH STENT PLACEMENT Left 12/2012 PHU to mid RCA & prox-mid Rt GRACE [...] tablet by mouth daily., Disp: , Rfl: clopidogrel (Plavix) 75 MG tablet, Take 1 tablet by mouth daily., Disp: , Rfl: furosemide (Lasix) 40 MG tablet, Take 1 tablet by mouth daily., Disp: , Rfl: isosorbide mononitrate ER (Imdur) 30 MG 24 hr tablet, Take 30 mg by mouth in the morning and 30 mg in the evening., Disp: , Rfl: lisinopril 20 MG tablet, Take 1 tablet by mouth daily., Disp: , Rfl: metoprolol tartrate (Lopressor) 50 MG tablet, Take 1 tablet by mouth 2 times daily., Disp: , Rfl: minoxidil (Loniten) 10 MG tablet, Take 0.5 tablets by mouth 2 times daily., Disp: , Rfl: nitroglycerin (Nitrostat) 0.4 MG SL tablet, Place 0.4 mg under the tongue., Disp: , Rfl: spironolactone (Aldactone) 25 MG tablet, Take 1 tablet by mouth daily., Disp: , Rfl: Review of Systems: Review of Systems Constitutional: Positive for fatigue. Negative for activity change. HENT: Negative for nosebleeds and trouble swallowing. Eyes: Negative for discharge and visual disturbance. Respiratory: Positive for shortness of breath. Negative for cough and wheezing. Cardiovascular: Positive for chest pain (with activity, relieved by rest). Negative for palpitations and leg swelling. Gastrointestinal: Negative for abdominal distention, abdominal pain, blood in stool, diarrhea and nausea. Endocrine: Negative for cold intolerance and heat intolerance. Genitourinary: Negative for hematuria. Musculoskeletal: Negative for gait problem and myalgias. Shoulder issues Skin: Negative for color change and rash. Neurological: Positive for dizziness and light-headedness. Negative for syncope and weakness. Hematological: Does not bruise/bleed easily. Psychiatric/Behavioral: Negative for dysphoric mood. Physical Examination: Vitals: Vitals: 07/06/22 1428 BP: (P) 128/74 Pulse: (P) 57 Weight: 298 lb (135 kg) Height: 6' 2 (1.88 m) Body mass index is 38.26 kg/m . Physical Exam Vitals reviewed. Constitutional: Appearance: Normal appearance. He is obese. HENT: Head: Normocephalic. Cardiovascular: Rate and Rhythm: Normal rate. Rhythm irregular. Heart sounds: Normal heart sounds. No murmur heard. No gallop. Pulmonary: Effort: Pulmonary effort is normal. Breath sounds: Normal breath sounds. Musculoskeletal: General: No swelling. Cervical back: Neck supple. Skin: General: Skin is warm and dry. Neurological: General: No focal deficit present. Mental Status: He is alert and oriented to person, place, and time. Psychiatric: Mood and Affect: Mood normal. Behavior: Behavior normal. Exam demonstrates a regular rhythm I hear no murmur or gallop first second heart sounds appear normal The chest was clear The neck is normal there are no bruits. The electrocardiogram demonstrates a sinus rhythm with a few PVCs there are small inferior Q waves noted. I reviewed the catheterization from last summer. 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 The prior catheterization was reviewed and the distal coronary territory is an infarct related territory with the rather small distal vasculature. The stents in the left anterior descending and the circumflex artery were widely patent OV function is preserved with an inferior basal scar. Laboratory Tests: Lab Results Component Value Date WBC 6.8 12/01/2021 HGB 13.1 12/01/2021 MCV 90.3 12/01/2021 Lab Results Component Value Date GLUCOSE 122 (H) 12/01/2021 CALCIUM 9.0 12/01/2021 NA 143 12/01/2021 K 4.1 12/01/2021 CO2 24 12/01/2021 CL 107 12/01/2021 BUN 30 (H) 12/01/2021 CREATININE 1.24 12/01/2021 @LASTP@ Lab Results Component Value Date CHLPL 144 [...] Final Assessment and Plan: 1. CAD in [place] artery 2. Primary hypertension 3. PAF (paroxysmal atrial fibrillation) ([facility]/HCC) ([facility]) 4. Other hyperlipidemia I summary and recommendation today is to continue with his present medications. I've increased Imdur 60 mg daily. I've asked him to monitor his blood pressure and to up titrate his blood pressure medicine if needed. Prophylactic nitroglycerin may help especially in cold weather. At this point it is clear that continuing medical therapy is the best option. There is no point to try to open the right coronary artery since the territory is not very large and is largely old infarct. I would anticipate continuing good results he's scheduled for knee replacement and may need a rotator cuff operation. I see no reason why he could not proceed with these surgeries I given his cardiacstatus documented in this [facility]07-11-2022 Hospital Discharge instructions* Instructions* Milagro Jaimes APRN - LABOR TRAINING MANAGER - 12/01/2021 Call your doctor with any medication questions or if you notice any side effects from your medications. If you are unable to fill your medications, please call your Editor [employer] immediately. The office number is located with [...] against the puncture site and your finger againstthe back of the wrist for 10 minutes, if BLEEDING continues CALL 911. OK to shower. No tub baths, swimming pools or hot tub soaking for three days. Wash site daily with soap and water, dry gently. The healing wound should remain soft and dry. Keepsite clean and dry, no soaking of wrist for three days (no cleaning or dish washing). Remove band aid the day after procedure and leave open to air. No bending of affected wrist for 24 hours. DO NOT lift more than three pounds for 3-5 days[address] driving for 24 hours. GIVE PCI PACKET (FROM SOLE ROUNDING MACHINE OPERATOR) TO PATIENT Give Coronary Artery Discharge Booklet PLEASE CALL YOUR HEART DOCTOR IF YOU CANNOT GET YOUR MEDICATIONS. THE NUMBER IS LISTED WITH YOUR FOLLOW-UP APPOINTMENT. Procedure Sedation Instructions 1. If you have received sedation: you must have someone drive you home 2. You should not drive a car, operate machinery, drink alcohol or perform any activity that requires alertness for the rest of the day. The effects of the sedative should be gone by tomorrow. [facility] this [facility] Work Phone: 1(123) 364-636810-26-2021 NoteName: Shannon Olson Date of : 1955 Date of Admission: 03/17/2021 Date of Discharge: 03/18/2021 Admitting physician: Zoie Gonzales MD Discharge Attending: DANIELLE Whitehead CNP, [...] Diagnosis ? NSTEMI (non-ST elevated myocardial infarction) (HCC) ? Hypertension ? Hyperlipidemia ? Atherosclerotic heart disease of [place] coronary artery with other forms of angina pectoris (HCC) ? COPD (chronic obstructive pulmonary disease) (HCC) ? HIPOLITO on CPAP ? PAF (paroxysmal atrial fibrillation) (HCC) ? 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 HIPOLITO (obstructive sleep apnea) ? Chest pain ? CAD (coronary artery disease) ? Unstable angina (HCC) ? CAD in [place] artery ? Status post left heart catheterization Procedures: Cath Summary: 03/17/2021 INDICATIONS: Unstable angina. Atherosclerotic coronary artery disease. Previous stent. ? Procedures performed: ? # Right coronary angiography. # Left coronary angiography. # Percutaneous intervention on the 80% stenosis in the mid right coronary. Balloon angioplasty. Stent placement. Stent placement. Stent placement. # Percutaneous intervention on the 100% occlusion in the distal right coronary. Balloon angioplasty. Balloon angioplasty. # Percutaneous intervention on the stenosis in the proximal right coronary. Balloon angioplasty. ? SUMMARY: ? 1. Left circumflex: Prior intervention: [...] 2. Small diffusely disease (more content not included)...[facility] 03-18-2021 Hospital course Narrative* [place] APRN - CNP - 03/18/2021 8:51 AM EDT Name: Shannon Olson Date of : 1955 Date of Admission: 03/17/2021 Date of Discharge: 03/18/2021 Admitting physician: Zoie Gonzales MD Discharge Attending: DANIELLE Whitehead CNP, [...] 103/39 Pulse: 57 59 60 57 Resp: 17 16 16 Temp: TempSrc: SpO2: Weight: Height: Reason for Admission: Angina Pectoris Consultants: Cardiac rehab HOSPITAL ADMISSION PROBLEM LIST: Patient Active Problem List Diagnosis NSTEMI (non-ST elevated myocardial infarction) ([facility]) Hypertension Hyperlipidemia Atherosclerotic heart disease of [place] coronary artery with other forms of angina pectoris ([facility]) COPD (chronic obstructive pulmonary disease) ([facility]) HIPOLITO on CPAP PAF (paroxysmal atrial fibrillation) ([facility]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 Atherosclerotic coronary artery disease. Previous stent. Procedures performed: # Right coronary angiography. # Left coronary angiography. # Percutaneous intervention on the 80% stenosis in the mid right coronary. Balloon angioplasty. Stent placement. Stent placement. Stent placement. # Percutaneous intervention on the 100% occlusion in the distal right coronary. Balloon angioplasty. Balloon angioplasty. # Percutaneous intervention on the stenosis in the proximal right coronary. Balloon angioplasty. SUMMARY: 1. Left circumflex: Prior intervention: stent in [...] JORDAN grade 2 flow (partial perfusion). IMPRESSIONS: 1. Successful re-stenting of the mid-distal RCA ( 3.5 mm at high pressure reuired 38 mm, 38mm, and 23 mm stenst) 2. Small diffusely diseased distal vessels beyond the large stents. 3. Left coronary stent in CIRc is widley patent and LAD has mild diffuse iregularity. 4. Prior LV grams demonstrate inferior akinesis. RECOMMENDATIONS: Med Rx with aggressive lipid and diabetes control. HOSPITAL COURSE : Shannon Olson is a 65 y.o. male known to Dr. Gonzales with history of CAD, PAF, HTN , history of TIA,and HLP. He was admitted to [facility] in March with COVID 19. In 08/2019 he underwent a PCI to In stent restenosis in the RCA, secondary to an abnormal stress test. He developed recurrent angina pectoris. He was scheduled for [facility]. Stents to CX and LAD patent, successful re-stenting of the Mid-distal RCA. He has some angina post procedure. This am , he is pain free, and able to breath easier. Discharge teaching done including medication, diet, activity, care of cath site. Right radial site stable. He has participated in Cardiac rehab in the past. Last Labs: Lab Results Component Value Date WBC 8.6 03/18/2021 HGB 12.1 (L) 03/18/2021 HCT 35.6 (L) 03/18/2021 MCV 89.3 03/18/2021 PLT 241 03/18/2021 Lab Results Component Value Date NA 139 03/18/2021 K 4.0 03/18/2021 CL 112 03/18/2021 CO2 21 03/18/2021 BUN 19 03/18/2021 CREATININE 0.98 03/18/2021 GLUCOSE 114 03/18/2021 CALCIUM 8.4 03/18/2021 Lab Results Component Value Date CHOL 155 06/06/2019 Lab Results Component Value Date TRIG 98 06/06/2019 Lab Results Component Value Date HDL 50 06/06/2019 Lab Results Component Value Date LDLCALC 85 06/06/2019 Final Principle Discharge Diagnosis: CAD Secondary Discharge diagnosis: HTN COPD HLP PAF HIPOLITO Discharge Medications: Shannon Olson Home Medication Instructions LUIZ:[id number] Printed on:03/18/21850 Medication Information albuterol sulfate HFA (VENTOLIN HFA) 108 (90 Base) MCG/ACT inhaler Inhale 2 puffs into the lungs 4 times daily as needed for Wheezing amiodarone (CORDARONE) 200 MG tablet TAKE ONE TABLET BY MOUTH EVERY DAY amLODIPine (NORVASC) 5 MG tablet Take 1 tablet by mouth daily apixaban (ELIQUIS) 5 MG TABS tablet TAKE ONE TABLET BY MOUTH TWICE DAILY atorvastatin (LIPITOR) 80 MG tablet Take 1 tablet by mouth daily clopidogrel (PLAVIX) 75 MG tablet Take 1 tablet by mouth daily adrqjljadqz-hvvsqqeqq-kbokfk (TRELEGY ELLIPTA) 100-62.5-25 MCG/INH AEPB Inhale 1 puff into the lungs daily furosemide (LASIX) 40 MG tablet TAKE ONE TABLET BY MOUTH EVERY DAY lisinopril (PRINIVIL;ZESTRIL) 20 MG tablet Take 1 tablet by mouth daily metoprolol tartrate (LOPRESSOR) 50 MG tablet Take 1 tablet by mouth 2 times daily minoxidil (LONITEN) 10 MG tablet Take 0.5 tablets by mouth 2 times daily mometasone-formoterol (DULERA) 100-5 MCG/ACT inhaler Inhale 2 puffs into the lungs 2 times daily nitroGLYCERIN (NITROSTAT) 0.[address] 1 tablet under the tongue every 5 minutes as needed for Chest pain If no relief after 3 pills, call 9-1-1 immediately. spironolactone (ALDACTONE) 25 MG tablet Take 1 tablet by mouth daily tiotropium (SPIRIVA) 18 MCG inhalation capsule Inhale 1 capsule into the lungs daily ICD Registry Information/AMI Registry Information NYHA Functional Classification: Class 0 Medical Therapy Aspirin: No - on Apixibqn EFRAIN/ARB: Yes Statin:Yes Beta Delia:Yes P2Y12 Inhibitors :Yes Aldosterone inhibitor :No - not indicated Cardiac rehab Yes Cardiac Rehab The Cardiac Rehabilitation Team at [facility] consists of highly skilled healthcare professionals, including nurses, physicians, and exercise physiologists all working together to help you return to a healthy, and active lifestyle. As a survivor of heart disease the program is designed to answer all of your questions about the disease through education, activity, monitored exercise, diet modification, and medication adherence. This program is proven to reduce reoccurrence of heart disease and reduce readmission. It is important for you to enroll in the program by attending orientation. For any questions regarding this valuable service please call # [phone] Orientation is available on all Wednesdays at 11:30 am location in the [address] BMI Classification: Obese (BMI 30.0-39.9) DIET: A lowfat, low cholesterol diet was discussed with the patient. Discharge to Home Condition at Discharge: good Follow up with cardiology 03/24/2021 at 1:30 pm With Danisha OLIVERA CNP If any questions call [facility] office [phone] Total time spent for Discharge time greater than 31 minutes documented in this [facility] Work Phone: 1(147) 319-623710-26-2021 History of Present illness Narrative* Zoie Gonzales MD - 03/18/2021 8:08 AM EDT INTERVENTIONAL CARDIOLOGY PROGRESS NOTE Chart and interval events reviewed. Reason for Visit s/p post PCI SUBJECTIVE: Shannon Olson states he feels much better with less SOB and no chest pain SCHEDULEDMEDICATIONS: sodium chloride flush 5-40 mL IntraVENous 2 times per day atorvastatin 80 mg Oral Nightly amiodarone 200 mg Oral Daily amLODIPine 5 mg Oral Daily apixaban 5 mg Oral BID clopidogrel 75 mg Oral Daily lisinopril 20 mg Oral Daily metoprolol tartrate 50 mg Oral BID minoxidil 5 mg Oral BID spironolactone 25 mg Oral Daily mometasone-formoterol 2 puff Inhalation BID And tiotropium 18 mcg Inhalation Daily Active Problems: Unstable angina (HCC) Status post left heart catheterization CAD in [place] artery Resolved Problems: * No resolved hospital problems. * Review of Systems: Review of Systems Constitutional: Negative for chills, diaphoresis and fever. HENT: Negative for nosebleeds. Eyes: Negative for visual disturbance. Respiratory: Negative for cough, shortness of breath and wheezing. Cardiovascular: Negative for chest pain, palpitations and leg swelling. Gastrointestinal: Negative for abdominal pain, blood in stool, constipation, diarrhea, nausea and vomiting. Genitourinary: Negative for hematuria. Musculoskeletal: Negative for myalgias. Skin: Negative for rash. Neurological: Negative for dizziness and syncope. Hematological: Does not bruise/bleed easily. Psychiatric/Behavioral: Negative for dysphoric mood and suicidal ideas. Denies Depression SIGNS: Vitals: 03/17/21 2100 03/17/21 2200 03/17/21 2300 03/18/21 0000 BP: (!) 173/79 (!) 118/41 (!) 163/72 (!) 103/39 Pulse: 57 59 60 57 Resp: 19 17 16 16 Temp: TempSrc: SpO2: Weight: Height: Intake/Output Summary (Last 24 hours) at 03/18/2021 0808 Last data filed at 03/18/2021 0000 Gross per 24 hour Intake Output 1000 ml Net -1000 ml Patient Vitals for the past 96 hrs (Last 3 readings): Weight 03/17/21 0729 298 lb 1 oz (135.2 kg) Physical Exam: Physical Exam Vitals reviewed. Constitutional: Appearance: He is obese. HENT: Head: Normocephalic. Eyes: Conjunctiva/sclera: Conjunctivae normal. Cardiovascular: Rate and Rhythm: Normal rate and regular rhythm. Heart sounds: No murmur heard. No gallop. Pulmonary: Effort: Pulmonary effort is normal. Musculoskeletal: General: No swelling. Cervical back: Neck supple. Skin: General: Skin is warm and dry. Neurological: General: No focal deficit present. Mental Status: He is alert and oriented to person, place, and time. Psychiatric: Mood and Affect: Mood normal. Behavior: Behavior normal. Data: Scheduled Meds:Reviewed Continuous Infusions: sodium chloride sodium chloride sodium chloride 100 mL/hr at 03/18/21 0634 CBC: Recent Labs 03/18/21138 WBC 8.6 HGB 12.1* HCT 35.6* PLT 241 BMP: Recent Labs 03/18/21138 NA 139 K 4.0 CL 112* CO2 21* BUN 19* CREATININE 0.98 INR: No results for input(s): INR in the last 72 hours. No results for input(s): BNP in the last 72 hours. TSH: Lab Results Component Value Date TSH 0.913 07/17/2020 Cardiac InjuryProfile: No results for input(s): CKTOTAL, CKMB, TROPONINI in the last 72 hours. Lipid Profile: Lab Results Component Value Date TRIG 98 06/06/2019 HDL 50 06/06/2019 LDLCALC 85 06/06/2019 CHOL 155 06/06/2019 EKG: See Report Telemetry Reviewed: sinus Echo: See Report CATH: RCA with multiple stents with renarrowing of the mid-distal Vessel re-stented LCA with mild irregularity and patent CIRC stent IMPRESSIONS/RECOMMENDATIONS: 1. S/p PCI of RCA with three stents OK to send home and follow up in office documented in this [facility] Work Phone: 1(563) 189-785210-25-2021 Hospital Discharge instructions* Instructions* Milagro Jaimes APRN - LABOR TRAINING MANAGER - 03/17/2021 Call your doctor with any medication questions or if you notice any side effects from your medications. If you are unable to fill your medications, please call your [facility] [employer] immediately. The office number is located with [...] against the puncture site and your finger againstthe back of the wrist for 10 minutes, if BLEEDING continues CALL 911. OK to shower. No tub baths, swimming pools or hot tub soaking for three days. Wash site daily with soap and water, dry gently. The healing wound should remain soft and dry. Keepsite clean and dry, no soaking of wrist for three days (no cleaning or dish washing). Remove band aid the day after procedure and leave open to air. No bending of affected wrist for 24 hours. DO NOT lift more than three pounds for 3-[address] for 24 hours. GIVE PCI PACKET (FROM SOLE ROUNDING MACHINE OPERATOR) TO PATIENT Give Coronary Artery Discharge Booklet PLEASE CALL YOUR HEART DOCTOR IF YOU CANNOT GET YOUR MEDICATIONS. THE NUMBER IS LISTED WITH YOUR FOLLOW-UP APPOINTMENT. Procedure Sedation Instructions 1. If you have received sedation: you must have someone drive you home 2. You should not drive a car, operate machinery, drink alcohol or perform any activity that requires alertness for the rest of the day. The effects of the sedative should be gone by tomorrow. Blood work in 5-7 days, see orders Cardiac Rehab The Cardiac Rehabilitation Team at [facility] consists of highly skilled healthcare professionals, including nurses, physicians, and exercise physiologists all working together to help you return to a healthy, and active lifestyle. As a survivor of heart disease the program is designed to answer all of your questions about the disease through education, activity, monitored exercise, diet modification, and medication adherence. This program is proven to reduce reoccurrence of heart disease and reduce readmission. It is important for you to enroll in the program by attending orientation. For any questions regarding this valuable service please call # [phone] [facility] Phone: 1(883) 881-913405-06-2021 NoteHNO ID: [id number] Author: Mari Madison LPN Service: ? Author Type: ? Type: Progress Notes Filed: 09/26/2020 3:51 PM Note Text: POPULATION HEALTH NAVIGATION OUTREACH Action/FYI HTN - Attempted to contact patient regarding elevated BP. Looks like he is following with cardiology, no answer letter mailed. Contact made with patient or family member? 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 No. Are you interested in a follow-up phone call or visit with a doctor for more information about planning for future health care decisions? No Referrals: N/A Message Sent to Practice: NO Navigation Signature: Mari Madison LPN September 26, 2020 3:40 [facility]05-06-2021 NotePatient Outreach (INTMWS) SHANNON OLSON ([id number]) 1955 M Date Time Provider Department 09/26/20 MARINO SUAREZ INTMWS During your visit today, we recorded the following information about you: Mari Madison LPN 09/26/2020 3:51 PM Signed POPULATION HEALTH NAVIGATION OUTREACH Action/ HTN - [...] future healthcare decisions with a power of bankruptcy attorney, living will, or advance directives? No. 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, unspecified documented in this encounter [facility] Work Phone: Evaluation note* Diagnosis Stable angina pectoris (HCC) Coronary artery disease involving [place] coronary artery of [place] heart without angina pectoris documented in this encounter [employer] Work Phone: Evaluation note* Diagnosis CAD in [place] artery- Primary Coronary atherosclerosis of [place] coronary artery Coronary artery disease involving [place] coronary artery of [place] heart without angina pectoris Unstable angina (HCC) Intermediate coronary syndrome Status post left heart catheterization [facility] Work Phone: Evaluation noteNo assessment information available [facility] Work Phone: Evaluation note* Diagnosis Chronic obstructive pulmonary disease, unspecified (HCC) COPD with asthma (HCC) Chronic obstructive asthma, unspecified documented in this encounter [employer] Work Phone: Evaluation note* Diagnosis Onset Date Resolution Status Low hemoglobin acute Total bilirubin, elevated ac tonia Chronic diarrhea chronic Esophageal reflux chronic [facility] Work Phone: Evaluation note* Diagnosis Onset Date Resolution Status Low hemoglobin acute Total bilirubin, elevated ac tonia Chronic diarrhea chronic Esophageal reflux chronic Gastritis acute Chronic diarrhea chronic Esophageal reflux chronic Diarrhea acute Dysphagia acute [facility] Work Phone: Evaluation note* Diagnosis Onset Date Resolution Status Epidermal inclusion cyst acu te Diarrhea chronic Gastric reflux chronic Skin lesion acute Rotator cuff disorder acute [facility] Work Phone: Evaluation note* Diagnosis Onset Date Resolution Status Diarrhea chronic Gastric reflux chronic Skin lesion acute Rotator cuff disorder acute [facility] Work Phone: Evaluation note* Diagnosis Coronary artery disease involving [place] coronary artery of [place] heart without angina pectoris- Primary Localized edema Edema PAF (paroxysmal atrial fibrillation) (CMS/HCC) (HCC) Atrial fibrillation Primary hypertension Unspecified essential hypertension Chronic obstructive pulmonary disease, unspecified COPD type ([facility]) WATTS (dyspnea on exertion) Other dyspnea and respiratory abnormality Shortness of breath on exertion Shortness of breath [facility] Diagnosis WATTS (dyspnea on exertion)- Primary Other dyspnea and respiratory abnormality Localized edema Edema [facility]* Diagnosis Onset Date Resolution Status Diarrhea chronic Gastric reflux chronic Skin lesion acute Rotator cuff disorder acute Left thyroid nodule acute [facility] Work Phone: Evaluation note* Diagnosis HIPOLITO (obstructive sleep apnea)- Primary Obstructive sleep apnea (adult) (pediatric) Transient disorder of initiating or maintaining sleep documented in this encounter [facility] [employer]* Diagnosis Localized edema Edema documented in this encounter [facility] [employer] [employer]* Diagnosis Onset Date Resolution Status Skin lesion acute Rotator cuff disorder acute Left thyroid nodule acute [facility] Work Phone: Evaluation note* Diagnosis CAD in [place] artery Primary hypertension Unspecified essential hypertension NSTEMI (non-ST elevated myocardial infarction) ([facility]) ([facility]) Acute myocardial infarction, subendocardial infarction, episode of care unspecified PAF (paroxysmal atrial fibrillation) ([facility]) ([facility]) Atrial fibrillation Other hyperlipidemia documented in this encounter [facility] [employer]* Diagnosis HIPOLITO (obstructive sleep apnea)- Primary Obstructive sleep apnea (adult) (pediatric) documented in this encounter [facility] [employer]* Diagnosis Renal insufficiency- Primary Unspecified disorder of kidney and ureter documented in this encounter [facility] [employer]* Diagnosis Chest pain- Primary Unspecified chest pain Chest pain Unspecified chest pain Status post left heart catheterization CAD in [place] artery Class 2 obesity in adult COPD (chronic obstructive pulmonary disease) ([facility]) Chronic airway obstruction, not elsewhere classified HIPOLITO on CPAP PAF (paroxysmal atrial fibrillation) ([facility]) ([facility]) Atrial fibrillation documented in this encounter [facility] [employer] note* Diagnosis Onset Date Resolution Status Rotator cuff disorder acute Left thyroid nodule acute [facility] Work Phone: Evaluation note* Diagnosis Onset Date Resolution Status Left thyroid nodule acute [facility] Work Phone: Evaluation note* Diagnosis Presence of coronary angioplasty implant and graft documented in this encounter [facility]* Diagnosis WATTS (dyspnea on exertion)- Primary Other dyspnea and respiratory abnormality documented in [facility]* Diagnosis WATTS (dyspnea on exertion)- Primary Other dyspnea and respiratory abnormality CAD in [place] artery PAF (paroxysmal atrial fibrillation) (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/HCC) (HCC) Acute myocardial infarction, subendocardial infarction, episode of care unspecified Hypertension, unspecified type PAF (paroxysmal atrial fibrillation) (HCC) Atrial fibrillation Atherosclerotic heart disease of [place] coronary artery with other forms of angina pectoris (HCC)- Primary Atherosclerotic heart disease of [place] coronary artery with other forms of angina pectoris (HCC) documented in [facility]* Diagnosis Atherosclerotic heart disease of [place] coronary artery with other forms of angina pectoris (HCC)- Primary Coronary artery disease of [place] artery of [place] heart with stable angina pectoris (HCC) Atherosclerotic heart disease of [place] coronary artery with other forms of angina pectoris (HCC) documented in [facility]* Diagnosis CAD in [place] artery- Primary Essential hypertension, benign Chronic diastolic heart failure (HCC) Chronic diastolic heart failure PAF (paroxysmal atrial fibrillation) ([facility]) Atrial fibrillation Mixed hyperlipidemia documented [facility]* Diagnosis HIPOLITO (obstructive sleep apnea)- Primary Obstructive sleep apnea (adult) (pediatric) documented in [facility]* Diagnosis CAD in [place] artery- Primary Chronic diastolic heart failure (HCC) Chronic diastolic heart failure Essential hypertension, benign PAF (paroxysmal atrial fibrillation) ([facility]) Atrial fibrillation Mixed hyperlipidemia documented in [facility]* Diagnosis HIPOLITO treated with BiPAP- Primary Atherosclerotic heart disease of [place] coronary artery with other forms of angina pectoris (HCC) PAF (paroxysmal atrial fibrillation) (HCC) Atrial fibrillation Chronic diastolic heart failure (HCC) Chronic diastolic heart failure Chronic bronchitis, unspecified chronic bronchitis type ([facility]) documented in this [facility]* Diagnosis Onset Date Resolution Status Dysphagia acute [facility] Work Phone: Evaluation note* Diagnosis CAD in [place] artery- Primary Chronic diastolic heart failure (HCC) Chronic diastolic heart failure Essential hypertension, benign PAF (paroxysmal atrial fibrillation) ([facility]) Atrial fibrillation Mixed hyperlipidemia documented in this encounter [facility]* Diagnosis CAD in [place] artery- Primary Chronic diastolic heart failure (HCC) Chronic diastolic heart failure Essential hypertension, benign PAF (paroxysmal atrial fibrillation) ([facility]) Atrial fibrillation Mixed hyperlipidemia documented in this encounter [facility]* Diagnosis Onset Date Resolution Status Dysphagia acute Chest pain acute Dysphagia acute Gastric reflux chronic [facility] Work Phone: Evaluation note* Diagnosis CAD in [place] artery- Primary Essential hypertension, benign Mixed hyperlipidemia PAF (paroxysmal atrial fibrillation) (HCC) Atrial fibrillation Chronic diastolic heart failure (HCC) Chronic diastolic heart failure documented in [facility]* Diagnosis Unstable angina (CMS/HCC) (HCC) Intermediate coronary syndrome documented [facility]* Diagnosis Obesity (BMI 30-39.9)- Primary CAD in [place] artery Essential hypertension Unspecified essential hypertension Mixed hyperlipidemia [facility]* Diagnosis HIPOLITO (obstructive sleep apnea) Obstructive sleep apnea (adult) (pediatric) documented [facility]* Diagnosis Unstable angina (CMS/HCC) (HCC) Intermediate coronary syndrome [facility]* Diagnosis Paroxysmal atrial fibrillation (HCC) Atrial fibrillation Coronary artery disease of [place] artery of [place] heart with stable angina pectoris (HCC) documented in [facility]* Diagnosis CAD in [place] artery Presence of coronary angioplasty implant and graft [facility]* Diagnosis CAD in [place] artery Primary hypertension Unspecified essential hypertension PAF (paroxysmal atrial fibrillation) (CMS/HCC) (HCC) Atrial fibrillation Other hyperlipidemia documented [facility]* Diagnosis CAD in [place] artery [facility]* Diagnosis CAD in [place] artery- Primary PAF (paroxysmal atrial fibrillation) (HCC) Atrial fibrillation Obesity (BMI 30-39.9) Essential hypertension Unspecified essential hypertension Mixed hyperlipidemia Abnormal EKG Nonspecific abnormal electrocardiogram (ECG) (EKG) documented [facility]* Diagnosis Palpitations- Primary PAF (paroxysmal atrial fibrillation) (HCC) Atrial fibrillation WATTS (dyspnea on exertion) Other dyspnea and respiratory abnormality documented [facility]* Diagnosis PAF (paroxysmal atrial fibrillation) (HCC)- Primary Atrial fibrillation CAD in [place] artery Essential hypertension Unspecified essential hypertension Mixed hyperlipidemia Obesity (BMI 30-39.9) documented [facility]* Diagnosis Palpitations PAF (paroxysmal atrial fibrillation) (HCC) Atrial fibrillation [facility]* Diagnosis CAD in [place] artery PAF (paroxysmal atrial fibrillation) (HCC) Atrial fibrillation Essential hypertension Unspecified essential hypertension Abnormal EKG Nonspecific abnormal electrocardiogram (ECG) (EKG) documented [facility]* Diagnosis CAD in [place] artery documented in [facility]* Diagnosis CAD in [place] artery Unstable angina (CMS/HCC) (HCC)- Primary Intermediate coronary syndrome documented [facility]* Diagnosis Unstable angina (CMS/HCC) (HCC)- Primary Intermediate coronary syndrome Unstable angina (CMS/HCC) (HCC)- Primary Intermediate coronary syndrome [facility]* Diagnosis Unstable angina (CMS/HCC) (HCC)- Primary Intermediate coronary syndrome Unstable angina (CMS/HCC) (HCC)- Primary Intermediate coronary syndrome Unstable angina (CMS/HCC) (HCC) Intermediate coronary syndrome [facility]* Diagnosis Unstable angina (CMS/HCC) (HCC)- Primary Intermediate coronary syndrome Unstable angina (CMS/HCC) (HCC)- Primary Intermediate coronary syndrome Unstable angina (CMS/HCC) (HCC) Intermediate coronary syndrome documented in this [facility]* Diagnosis Unstable angina (CMS/HCC) (HCC)- Primary Intermediate coronary syndrome Unstable angina (CMS/HCC) (HCC) Intermediate coronary syndrome Stented coronary artery Postsurgical percutaneous transluminal coronary angioplasty status Stage 3a chronic kidney disease (HCC) CAD in [place] artery Unstable angina (CMS/HCC) (HCC) Intermediate coronary syndrome documented in this [facility]* Diagnosis CAD in [place] artery- Primary PAF (paroxysmal atrial fibrillation) (HCC) Atrial fibrillation Essential hypertension Unspecified essential hypertension Mixed hyperlipidemia Acute on chronic diastolic congestive heart failure (HCC) documented in this encounter [facility]* Diagnosis CAD in [place] artery- Primary Chronic diastolic heart failure (HCC) Chronic diastolic heart failure Cardiomyopathy, ischemic Other specified forms of chronic ischemic heart disease documented in this encounter [facility]* Diagnosis CAD in [place] artery- Primary Chronic diastolic heart failure (HCC) Chronic diastolic heart failure Cardiomyopathy, ischemic Other specified forms of chronic ischemic heart disease documented in this encounter [facility]* Diagnosis Primary hypertension- Primary Unspecified essential hypertension [facility] Author Dwayne Bess [facility] May 20, 2023 9:58am Note Date/Time May 20, 2023 9:58am [facility] Medical Records Department [address] [place] [address] History & Physical Exam 05/20/23 0957 MR#: [id number] Acct: [id number] Name: SHANNON OLSON Rep #:[id number] : 1955 67 From: Dwayne Bess MD PCP: Dr. Finn Ferrell MD Status:[facility] Location: [place] [address] History and Physical Date of Admission: 05/20/23 Visit Reasons: Dysphagia Chief Complaint: dysphagia Is patient in pain?: No Allergies Penicillins Allergy (Verified 04/07/23 09:20) Hives Medications minoxidil 10 mg tablet 5 mg PO BID blood pressure 10/05/19 [History Confirmed 04/07/23] nitroglycerin 0.4 mg sublingual tablet 0.4 mg sublingual Q5-15M PRN cp 10/05/19 [History Confirmed 04/07/23] atorvastatin 80 mg tablet 80 mg PO QHS #30 tabs 10/31/20 [Rx Confirmed 04/07/23] clopidogrel 75 mg tablet (Plavix) 75 mg PO DAILY 09/09/21 [History Confirmed 04/07/23] apixaban 5 mg tablet (Eliquis) 5 mg PO BID 10/30/21 [History Confirmed 04/07/23] isosorbide mononitrate 30 mg tablet,extended release 24 hr 30 mg PO BID 01/07/22[History Confirmed 04/07/23] pantoprazole 40 mg tablet,delayed release (Protonix) 40 mg PO QAM #90 tabs 04/01/22 [Rx Confirmed 04/07/23] oxycodone 5 mg tablet 10 mg (2 x 5 mg) PO Q6H PRN PRN Pain Score 6-10 7 days #42tabs 08/21/22 [Rx Confirmed 04/07/23] metoprolol succinate 50 mg tablet,extended release 24 hr 50 mg PO DAILY 04/07/23[History Confirmed 04/07/23] ranolazine 1,000 mg tablet,extended release,12 hr (Ranexa) 1,000 mg PO BID 04/07/23 [History Confirmed 04/07/23] torsemide 20 mg tablet 20 mg PO DAILY 04/07/23 [History Confirmed 04/07/23] PFSH Medical History Anxiety Atrial fibrillation CAD (coronary artery disease) Cardiology follow-up encounter Chest pain Cholelithiasis with chronic cholecystitis COPD (chronic obstructive pulmonary disease) COPD (chronic obstructive pulmonary disease) Coronary atherosclerosis of [place] coronary vessel Depression Difficulty swallowing Dysphagia Epidermal inclusion cyst Esophageal reflux Excessive bleeding Gastric reflux High cholesterol History of atrial fibrillation History of echocardiogram History of edema History of heart attack history of ischemic stroke History of stress test HTN (hypertension) Hyperlipidemia Hypertension Left rotator cuff tear Leg cramps Non-smoker NSVT (nonsustained ventricular tachycardia) Obstructive sleep apnea syndrome PONV (postoperative nausea and vomiting) Rheumatoid arthritis Screening for malignant neoplasm of intestine Sensorineural hearing loss, 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 Shortness of breath on exertion Sleep apnea Wears glasses Surgical History History of cardiac catheterization History of colonoscopy (~2014) History of coronary angioplasty History of esophagogastroduodenoscopy (EGD) (~2014) History of heart artery stent History of inguinal hernia repair History of knee joint replacement History of left shoulder replacement History of total left hip arthroplasty History of total right hip arthroplasty Hx of cholecystectomy S/P PTCA (percutaneous transluminal coronary angioplasty) Family History (Updated 04/07/23 @ 09:11 by Silva Izquierdo) Sister Cancer ovarian DiabetesBrother DiabetesMother Heart disease HypertensionFather Prostate cancer Social History (Updated 12/06/22 @ 02:[address] Henrietta Quinonez MD) household members: none Smoking Status: Never smoker alcohol intake: never substance use type: does not use HPI HPI HPI: 67-year-old gentleman is being referred by Dr Finn Ferrell for surgical consultation regarding esophageal dysphagia and a written compromise surgical consult recommendations will be returned to him.By report the patient has been having some trouble with chest pain and recently had a negative heart catheterization performed at [facility]. He was started on Ranexa for his chest pain and angina with complete relief. He is also been initiated on pantoprazole. He does note some epigastric burning and occasional difficulty with solid foods getting stuck. Among other medications he is on clopidogrel and metoprolol and minoxidil and Eliquis and isosorbide mononitrate and rosuvastatin. At the [facility] on March 29, 2023 he had a contrast upper GIstudy which was interpreted as normal. No hiatal hernia and a 12 mm barium tablet passed. I have personally reviewed those images. On one image there appeared to be some tertiary contractions. I had also seen him in the office October 27, 2022 and review of her thyroid nodule for which we are taking a conservative approach. In addition removing skin lesions for him previously on February 20, 2020 I assisted him with a colonoscopy. Diverticulosis and tortuous colon noted. No acute findings and repeat colonoscopy at 10 years recommended. October 30, 2019 I assisted him with a laparoscopic cholecystectomy and a suture umbilical herniorrhaphy. She is concerned because for approximately 2 years has had troubles intermittently with swallowing. He explains that even semisolid's will do it. Feels like they get stuck right at the throat. Sometimes he has to wash it downwith fluid. Sometimes he will feel a sense of regurgitation. ROS General General: Yes weight change and fatigue; No appetite, colon cancer, breast cancer or weakness Additional Details: Weight has been fluctuating recently HEENT HEENT: Yes difficulty swallowing; No eye injury, eye surgery, swollen glands or hoarseness Endo Endocrine: No thyroid disease, diabetes mellitus, thyroid cancer, Hair loss, heat intolerance or cold intolerance Skin Skin: No rash or changing moles Musc Musculoskeletal: Yes rheumatoid arthritis; No back problems, arthritis, gout or joint pain Cardio Cardiovascular: Yes heart disease, atrial fibrillation, high blood pressure, heart attack and heart stent; No murmur, pacemaker, palpitations, shortness of breat with exertion or chest pain Psych Psychiatric: Yes depression and anxiety; No hearing voices Resp Respiratory: Yes shortness of breath, Yes sleep apnea, No cough, Yes COPD, No asthma, No emphysema and No wheezing Gastro Gastrointestinal: Yes abdominal pain, No nausea or vomiting, Yes diarrhea, No constipation, No blood in stool, Yes acid reflux, No hemorrhoids, No ulcers, No gallbladder problem and No black,tarry stools Flip Hematologic: Yes blood thinners, No blood disorders, No bleeding, No anemia and No blood clots Neuro Neurologic: No system reviewed and no additional complaints, except as documented, No as per HPI, No abnormal gait, No abnormal hearing, No abnormal movements, No abnormal speech, No behavioral changes, No burning sensations, No confusion, No convulsions, No disequilibrium, No dizziness, No localized weakness, No frequent falls, No headache(s), No lack of coordination, No loss ofvision, No memory loss, Yes numbness, No other visual disturbances, No radicularpain, No restless legs, No sensory deficit, No syncope, Yes tingling, No tremor(s), No weakness and No other Exam Const General: cooperative, comfortable and no acute distress [facility] Head: normal to inspection Eyes General: appearance normal, both eyes and all related structures Neck Neck: normal visual inspection Resp Effort & Inspection: normal respiratory effort Auscultation: clear to auscultation bilaterally Cardio Rate: regular rate Rhythm: regular rhythm GI Inspection: normal to inspection Palpation: soft and no hepatosplenomegaly Musc Cervical Spine: normal cervical lordosis Neuro General: patient alert, patient awake and patient oriented x3 Extrem General: no calf tenderness Psych Appearance: grossly normal Assessment and Plan Assessment and Plan (1) Dysphagia: Status: Acute Qualifiers: Dysphagia type: esophageal phase Qualified Code(s): R13.19 - Other dysphagia Plan: Esophageal dysphagia. Patient does have significant cardiac disease. Not sure whether there could be any influence upon the esophagus due to cardiac enlargement. I do propose for him a esophagogastroduodenoscopy with possible biopsy. We will have him hold his Eliquis and clopidogrel 1 day prior to the procedure and likely the day of the procedure as well. He is aware of technique, benefit, risk, alternatives. Subsequent to that he might benefit from esophageal manometry pending the findings. He has had an opportunity to ask and have questions answered. He had been on amiodarone for period of time but he states that was starting to cause some renal dysfunction. Etiology regarding his esophageal dysphagia at this point somewhat undetermined. I appreciate the ongoing opportunity of assisting with his surgical care. Copy: Dr Finn Bess M.D., F.A.C.S. I have examined the patient and the H&P has been reviewed. There are no clinicalchanges since date of exam. Dwayne Bess M.D., F.A.C.S. 05/20/23 0958 <Electronically signed by Dwayne Bess MD> Cosigner Signature (if applicable): CC: Dr. Finn Ferrell MD; Dr. Dwayne Bess MD~ Signed [facility] Work Phone: [facility] for referral (narrative)* Consultation (Routine) - Pending Review Specialty Diagnoses / Procedures Referred By Contac t Referred To Contact Bariatrics Diagnoses Obesity (BMI 30-39.9) Procedures SD OFFICE/OUTPATIENT NEW HIGH MDM 60 MINUTES Dominguez Ortega MD [address] [place] [address] [facility] [address] [place] [address] Referral ID Status Reason Start Date Expiration Date Visits Requested Visits Authorized [id number] Pending Review Specialty Services Required 02/01/2024 01/31/[address] [facility] for referral (narrative)No reason for referral information [facility] Work Phone: [employer] for visit Narrative* Cardiology (Routine) - Closed Specialty Diagnoses / Procedures Referred By Contac t Referred To Contact Cardiology Diagnoses Palpitations PAF (paroxysmal atrial fibrillation) (HCC) Procedures Cardiac holter monitor (3-7 days) SD EXTERNAL ECG REC>48HR<7D REVIEW & INTERPRETATION SD EXTERNAL ECG REC>48HR<7D RECORDING SD EXTERNAL ECG REC>7D<15D RECORDING SD EXTERNAL ECG REC>7D<15D REVIEW & INTERPRETATION [place] APRN - LABOR TRAINING MANAGER [address] [place] [address] Phone: tel: fax: Referral ID Status Reason Start Date Expiration Date Visits Re quested Visits Authorized [id number] Closed 07/20/2024 07/15/2025 1 1 [facility] [employer] for visit Narrative* Imaging (Routine) - Closed Specialty Diagnoses / Procedures Referred By Contac t Referred To Contact Cardiology Diagnoses CAD in [place] artery PAF (paroxysmal atrial fibrillation) (HCC) Essential hypertension Abnormal EKG Procedures Transthoracic echocardiogram (TTE) complete with contrast, bubble, strain, and 3D PRN SD ECHO TTHRC R-T 2D W/WOM-MODE COMPL SPEC&COLR D SD TTE W OR WO FOL WCON,DOPPLER [place] APRN - CNP [address] [place] [address] Phone: tel: fax: Referral ID Status Reason Start Date Expiration Date Visits Re quested Visits Authorized [id number] Closed 07/06/2024 07/06/2025 1 [facility] N[facility]* Auth/Cert (Routine) Specialty Diagnoses / Procedures Referred By Contac t Referred To Contact Diagnoses Unstable angina (CMS/HCC) (HCC) Unstable angina (CMS/HCC) (HCC) [I20.0] Procedures SD CATH PLMT L HRT & ARTS W/NJX & ANGIO IMG S&I Left heart cath / coronary angiography Dominguez Ortega MD [address] [place] [address] Phone: tel: fax: Referral ID Status Reason Start Date Expiration Date Visits Re quested Visits Authorized [id number] 09/07/2024 1 1 [facility] Summary Purpose Family History Relationship Condition Age at Onset Recorded Date/T shelbi sister Malignant neoplasm Unknown brother Diabetes mellitus Unknown Relationship Condition Age at Onset Recorded Date/T shelbi sister Malignant neoplasm Unknown brother Diabetes mellitus Unknown mother Cardiac disease Unknown father Malignant neoplasm of prostate Unknown Relationship Condition Age at Onset Recorded Date/T shelbi sister Malignant neoplasm Unknown Diabetes mellitus Unknown brother Diabetes mellitus Unknown mother Cardiac disease Unknown Hypertension Unknown father Malignant neoplasm of prostate Unknown Advance Directives Documents on File Type Date Recorded Patient Supervisor Mails Expl anation Advance Directives and Living Will Power of Fence Making Machine Operator Latest Code Status on File Code Status Date Activated Date Inactivated Comments Full Code 09/08/2019 3:05 PM Full Code 09/08/2019 12:42 PM 09/08/2019 3:04 PM Full Code 09/06/2019 9:26 PM 09/08/2019 12:42 PM Full Code 09/05/2019 12:32 PM 09/06/2019 9:26 PM Full Code 06/03/2017 4:45 AM 06/04/2017 4:03 PM Latest Code Status on File Code Status Date Activated Date Inactivated Comments Full Code 09/15/2019 6:13 AM Full Code 09/08/2019 3:05 PM 09/09/2019 7:18 PM Documents on File Type Date Recorded Patient Supervisor Mails Expl anation ACP-Advance Directive ACP-Power of Fence Making Machine Operator Latest Code Status on File Code Status Date Activated Date Inactivated Comments Full Code 09/15/2019 6:13 AM 09/15/2019 6:29 PM Full Code 09/08/2019 3:05 PM 09/09/2019 7:18 PM Full Code 09/08/2019 12:42 PM 09/08/2019 3:04 PM Full Code 09/06/2019 9:26 PM 09/08/2019 12:42 PM Full Code 09/05/2019 12:32 PM 09/06/2019 9:26 PM Documents on File Type Date Recorded Patient Supervisor Mails Expl anation ACP-Advance Directive ACP-Power of Fence Making Machine Operator Latest Code Status on File Code Status Date Activated Date Inactivated Comments Full Code 09/15/2019 6:13 AM 09/15/2019 6:29 PM Latest Code Status on File Code Status Date Activated Date Inactivated Comments Full Code 03/17/2021 12:14 PM Full Code 03/17/2021 7:25 AM 03/17/2021 12:14 PM Full Code 09/15/2019 6:13 AM 09/15/2019 6:29 PM Latest Code Status on File Code Status Date Activated Date Inactivated Comments Full Code 03/17/2021 12:14 PM 03/18/2021 12:10 PM Full Code 03/17/2021 7:25 AM 03/17/2021 12:14 PM Full Code 09/15/2019 6:13 AM 09/15/2019 6:29 PM Advance Directive Response Recorded Date/ Time Advance Directives Yes September 03 10:22am Living Will Yes September 09, 2021 10:56pm Power of Fence Making Machine Operator No September 09 10:56pm Latest Code Status on File Code Status Date Activated Date Inactivated Comments Full Code 12/01/2021 7:08 AM Full Code 03/17/2021 12:14 PM 03/18/2021 12:10 PM Latest Code Status on File Code Status Date Activated Date Inactivated Comments Full Code 12/01/2021 7:08 AM 12/01/2021 8:24 PM Full Code 03/17/2021 12:14 PM 03/18/2021 12:10 PM Advance Directive Response Recorded Date/ Time Name of Medical Power of Fence Making Machine Operator NEPHEW/BROTHER January 07, 2022 1:29pm Advance Directives Yes September 03, 2 015 10:22am Living Will Yes January 07 1:29pm Power of Fence Making Machine Operator Yes January 07, 022 1:29pm Advance Directive Response Recorded Date/ Time Name of Medical Power of Fence Making Machine Operator NEPHEW/BROTHER January 07, 2022 12:29pm Advance Directives Yes September 03, 2 015 9:22am Living Will Yes January 07 12:29pm Power of Fence Making Machine Operator Yes January 07 022 12:29pm Advance Directive Response Recorded Date/ Time Name of Medical Power of Fence Making Machine Operator Reynold lOson August 20, 2022 1:18pm Advance Directives Yes September 03, 015 10:22am Living Will Yes August 20, 2022 1:18pm Power of Fence Making Machine Operator Yes August 20 1:18pm Documents on File Type Date Recorded Patient Supervisor Mails Expl anation Advance Directives and Livin g Will 10/29/2022 3:11 PM Power of Fence Making Machine Operator 10/29/2022 3:11 PM Documents on File Type Date Recorded Patient Supervisor Mails Expl anation Advance Directives and Livin g Will 10/29/2022 3:11 PM Power of Fence Making Machine Operator 10/29/2022 3:11 PM Advance Directive Response Recorded Date/ Time Name of Medical Power of Fence Making Machine Operator Reynold Olson August 20, 2022 1:18pm Name of Medical Power of Fence Making Machine Operator Reynold Olson, brother December 05, 2022 10:49pm Advance Directives Yes September 03, 015 10:22am Living Will Yes December 05, 2022 10:49pm Power of Fence Making Machine Operator Yes December 05 10:49pm Latest Code Status on File Code Status Date Activated Date Inactivated Comments Full Code 12/06/2022 10:34 AM Healthcare Agents on File Name Relationship Healthcare Agent Relationshi p Communication Reynold Olson Brother First Alternate Health Care Agent Latest Code Status on File Code Status Date Activated Date Inactivated Comments Full Code 12/06/2022 10:34 AM 12/08/2022 8:11 PM Healthcare Agents on File Name Relationship Healthcare Agent Relationshi p Communication Reynold Olson Brother First Alternate Health Care Agent Latest Code Status on File Code Status Date Activated Date Inactivated Comments Full Code 12/06/2022 10:34 AM 12/08/2022 8:11 PM Healthcare Agents on File Name Relationship Healthcare Agent Relationshi p Communication Reynold Mathias Alternate Health Care Agent Advance Directive Response Recorded Date/ Time Name of Medical Power of Fence Making Machine Operator brother Ying December 05, 2022 10:49pm Advance Directives Yes September 03, 2 015 10:22am Living Will Yes December 05, 2022 10:49pm Power of Fence Making Machine Operator Yes December 05 10:49pm Advance Directive Response Recorded Date/ Time Name of Medical Power of Fence Making Machine Operator brother Ying December 05, 2022 10:49pm Name of Medical Power of Fence Making Machine Operator Reynold Greenwood December 28, 2022 10:52pm Advance Directives Yes September 03, 015 10:22am Living Will Yes December 28, 2022 10:52pm Power of Fence Making Machine Operator Yes December 28 10:52pm Healthcare Agents on File Name Relationship Healthcare [...] Communication Reynold Mathias Alternate Health Care Agent Latest Code Status [...] Reynold Olguin First Alternate Health Care Agent Advance Directive Response Recorded Date/ Time Name of Medical Power of Fence Making Machine Operator brother Ying December 05, 2022 9:49pm Name of Medical Power of Fence Making Machine Operator Reynold Greenwood December 28, 2022 9:52pm Advance Directives Yes September 03, 015 9:22am Living Will Yes December 28, 2022 9:52pm Power of Fence Making Machine Operator Yes December 28 9:52pm Advance Directive Response Recorded Date/ Time Name of Medical Power of Fence Making Machine Operator Reynold Greenwood December 28, 2022 9:52pm Advance Directives Yes September 03, 2 015 9:22am Living Will Yes December 28, 2022 9:52pm Power of Fence Making Machine Operator Yes December 28 9:52pm Healthcare Agents on File Name Relationship Healthcare Agent Relationshi p Communication Reynold Olguin First Alternate Health Care Agent Healthcare Agents on File Name Relationship Healthcare Agent Relationshi p Communication Reynold Olguin First Alternate Health Care Agent Healthcare Agents on File Name Relationship Healthcare Agent Relationshi p Communication Reynold Olguin First Alternate Health Care Agent Advance Directive Response Recorded Date/ Time Name of Medical Power of Fence Making Machine Operator ON FILE, POA OR[place]O OLSON AND NEPHDEBORAH OLSON May 14, 2023 4:06pm Advance Directives Yes September 03, 2 015 9:22am Living Will Yes May 14, 023 4:06pm Power of Fence Making Machine Operator Yes May 14, 2023 4:06pm Healthcare Agents on File Name Relationship Healthcare Agent Relationshi p Communication Reynold Olguin First Alternate Health Care Agent Advance Directive Response Recorded Date/ Time Name of Medical Power of Fence Making Machine Operator Reynold Olson July 05, 2023 11:53am Advance Directives Yes September 03, 2 015 9:22am Living Will Yes July 05, 2 024 11:53am Power of Fence Making Machine Operator Yes July 05, 2023 11:53am Name of Medical Power of Fence Making Machine Operator ON FILE, POA OR[place]O OLSON AND NEPHDEBORAH OLSON May 14, 2023 4:06pm Healthcare Agents on File Name Relationship Healthcare Agent Relationshi p Communication Reynold Ogluin First Alternate Health Care Agent Date Activated Date Inactivated Comments 03/01/2023 7:15 AM 03/01/2023 1:40 PM Date Activated Date Inactivated Comments 12/06/2022 10:34 AM 12/08/2022 8:11 PM Healthcare Agents on File Name Relationship Healthcare Agent Relationshi p Communication Reynold Olguin First Alternate Health Care Agent Date Activated Date Inactivated Comments 03/01/2023 7:15 AM 03/01/2023 1:40 PM Date Activated Date Inactivated Comments 12/06/2022 10:34 AM 12/08/2022 8:11 PM Healthcare [...] Communication Reynold Mathias Alternate Health Care Agent Advance Directive Response Recorded Date/ Time Advance Directives Yes August 22 9:57am Healthcare Agents on File Name Relationship Healthcare Agent Relationshi p Communication Reynold Mathias Alternate Health Care Agent Healthcare Agents on File Name Relationship Healthcare Agent Relationshi p Communication Reynold Mathias Alternate Health Care Agent Date Activated Date Inactivated Comments 09/14/2024 9:08 AM 09/15/2024 4:11 PM Date Activated Date Inactivated Comments 03/01/2023 7:15 AM 03/01/2023 1:40 PM Date Activated Date Inactivated Comments 12/06/2022 10:34 AM 12/08/2022 8:11 PM Healthcare Agents on File Name Relationship Healthcare Agent Relationshi p Communication Reynold Mathias Alternate Health Care Agent Date Activated Date Inactivated Comments 09/14/2024 9:08 AM 09/15/2024 4:11 PM Date Activated Date Inactivated Comments 03/01/2023 7:15 AM 03/01/2023 1:40 PM Date Activated Date Inactivated Comments 12/06/2022 10:34 AM 12/08/2022 8:11 PM Healthcare Agents on File Name Relationship Healthcare Agent Relationshi p Communication Reynold Mathias Alternate Health Care Agent Healthcare Agents on File Name Relationship Healthcare Agent Relationshi p Communication Reynold Mathias Alternate Health Care Agent Healthcare Agents on File Name Relationship Healthcare Agent Relationshi p Communication Reynold Mathias Alternate Health Care Agent Hospital Course * Yemi South MD - 09/09/2019 11:25 AM EDT Discharge Summary Shannon Olson : 1955 ADMIT DATE: 09/05/2019 DISCHARGE DATE: 09/09/2019 PRIMARY CARE PHYSICIAN: Mgiuel Calzada VISIT STATUS: Admission CODE STATUS: Full Code DISCHARGE DIAGNOSES: Active Problems: Chest pain Resolved Problems: * No resolved hospital problems. * CP/Hx CAD/PCI s/p abnormal stress echo Hypertension hyperlipidemia Atrial fibrillation on anticoagulation Nonsustained ventricular tachycardia HOSPITAL COURSE: Patient is a 63-year-old male, history of coronary artery disease extensive, atrial fibrillation onanticoagulation and presented with chest pain. Found in A. Fib RVR and also intermittent nonsustained ventricular tachycardia in the emergency room. Seen by cardiology consult. Admitted to the medical floor. Serial troponins negative. Underwent DC cardioversion. In sinus rhythm. Underwent cardiac catheterization because of abnormal stress echo. GAS ANALYST stent placement of RCA. Postprocedure has remained hemodynamically stable. No chest pain shortness of breath. Seen by cardiology cleared for discharge home Patient denies chest pain or shortness of breath Lungs clear bilaterally Heart S1-S2 normal Abdomen soft nontender bowel sounds present No leg edema bilaterally Patient to follow-up with PCP and cardiology as recommended SIGNIFICANT DIAGNOSTIC STUDIES: Cardiac stress echo, cardiac catheterization CONSULTANTS: cardiology DISCHARGE MEDICATIONS: Shannon Olson Home Medication Instructions LUIZ:[id number] Printed on:09/09/19 1125 Medication Information amiodarone (CORDARONE) 200 MG tablet Take 1 tablet by mouth daily amLODIPine (NORVASC) 5 MG tablet Take 1 tablet by mouth daily apixaban (ELIQUIS) 5 MG TABS tablet Take 1 tablet by mouth 2 times daily atorvastatin (LIPITOR) 80 MG tablet TAKE ONE TABLET BY MOUTH EVERY DAY clopidogrel (PLAVIX) 75 MG tablet Take 1 tablet by mouth daily ezetimibe (ZETIA) 10 MG tablet Take 1 tablet by mouth daily furosemide (LASIX) 40 MG tablet TAKE ONE TABLET BY MOUTH EVERY DAY lisinopril (PRINIVIL;ZESTRIL) 40 MG tablet TAKE ONE TABLET BY MOUTH EVERY DAY metoprolol tartrate (LOPRESSOR) 50 MG tablet TAKE ONE TABLET BY MOUTH TWICE DAILY minoxidil (LONITEN) 10 MG tablet Take 0.5 tablets by mouth 2 times daily nitroGLYCERIN (NITROSTAT) 0.[address] 1 tablet under the tongue every 5 minutes as needed for Chest pain If no relief after 3 pills, call [id number] immediately. omeprazole (PRILOSEC) 40 MG delayed release capsule daily DIET: DIET CARDIAC; ACTIVITY: No restriction. up with assist COMPLEXITY OF FOLLOW UP: [] Moderate Complexity: follow up within 7-14 calendar days (65511) [] Severe Complexity: follow up within 7 calendar days (48332) FOLLOW UP TESTING, PENDING RESULTS OR REFERRALS AT TRANSITIONAL CARE VISIT: [] Yes [] No PENDING STUDIES: No DISPOSITION: Home FACILITY/HOME CARE AGENCY NAME: Follow up with Miguel Calzada [address] [place] [id number] Zoie Gonzales MD [address] [place] [address] [id number] [facility] [id number] On 09/14/2019 Time: 1:30 pm with Danisha Spain [facility] Tele[facility] visit. Call PCP for appointment in 1 week for follow-up on INSTRUCTIONS TO MA/SW: Please call patient on [...] frame. DISCHARGE TIME: > 30 minutes SIGNED: YEMI SOUTH MD 09/09/2019, 11:25 AM documented in this encounter Discharge Instructions * Discharge Instr - Activity* Yemi South MD - 09/08/2019 2:42 PM EDT As tolerated Any activity restrictions per cardiology Follow up post cardiac catheterization instructions * Discharge Instr - Diet* Yemi South MD - 09/08/2019 2:42 PM EDT ? Good nutrition is important when healing from an illness, injury, or surgery. Follow any nutrition recommendations given to you during your hospital stay. ? If you were given an oral nutrition supplement while in the hospital, continue to take this supplement at home. You can take it with meals, in-between meals, and/or before bedtime. These supplements can be purchased at most local grocery stores, pharmacies, and chain [employer]stores. ? If you have any questions about your diet or nutrition, call the hospital and ask for the dietitian. Low fat. Low salt diet * Additional Instructions* Daysi Morton RN - 09/05/2019 ATRIAL FIBRILLATION ZONES GREEN ZONE: All Clear- Your Symptoms Are Under Control Able to do usual activities without feeling tired No chest pain No shortness of breath No feeling that your heart is racing or flopping in your chest No dizziness or fainting This Means You Should: Continue taking your medications as prescribed Continue activity as tolerated Keep all doctor appointments YELLOW ZONE: Caution Feeling that your heart is racing or flopping in your chest Increased shortness of breath Chest pain Dizziness, fatigue, or restlessness Uneasy feeling or that something is wrong This Means You Should: Call your doctor for further instructions RED ZONE: Medical Alert Severe or unrelieved shortness of breath at rest Unrelieved chest pain Fainting Confusion or you can't think clearly This Means You Should Call 911 Immediately documented in this encounter* Discharge Instr - Activity* Filipe Tavarez MD - 09/15/2019 1:53 PM EDT As tolerated * Discharge Instr - Diet* Filipe Tavarez MD - 09/15/2019 1:53 PM EDT ? Good nutrition is important when healing from an illness, injury, or surgery. Follow any nutrition recommendations given to you during your hospital stay. ? If you were given an oral nutrition supplement while in the hospital, continue to take this supplement at home. You can take it with meals, in-between meals, and/or before bedtime. These supplements can be purchased at most local grocery stores, pharmacies, and chain [employer]ores. ? If you have any questions about your diet or nutrition, call the hospital and ask for the dietitian. ? Cardiac diet * Additional Instructions* Serina Mason RN - 09/15/2019 Please get BMP in 1 week. * Attachments The following attachments cannot be sent through Care Everywhere. * Chest Pain ([place]) documented in this encounter History of Present Illness * Zoie Gonzales MD - 09/09/2019 7:50 AM EDT INTERVENTIONAL CARDIOLOGY PROGRESS NOTE Chart and interval events reviewed. Reason for Visit s/p PCI of RCA SUBJECTIVE: Shannon Olson states he feels well SCHEDULEDMEDICATIONS: sodium chloride flush 10 mL Intravenous 2 times per day sodium chloride flush 10 mL Intravenous 2 times per day sodium chloride flush 10 mL Intravenous 2 times per day apixaban 5 mg Oral BID amLODIPine 5 mg Oral Daily amiodarone 200 mg Oral Daily atorvastatin 80 mg Oral Daily clopidogrel 75 mg Oral Daily ezetimibe 10 mg Oral Daily furosemide 40 mg Oral Daily lisinopril 40 mg Oral Daily metoprolol tartrate 50 mg Oral BID minoxidil 5 mg Oral BID pantoprazole 40 mg Oral QAM AC Active Problems: Chest pain Resolved Problems: * No resolved hospital problems. * Review of Systems: Review of Systems Constitutional: Negative for chills, diaphoresis and fever. HENT: Negative for nosebleeds. Eyes: Negative for visual disturbance. Respiratory: Negative for cough, shortness of breath and wheezing. Cardiovascular: Negative for chest pain, palpitations and leg swelling. Gastrointestinal: Negative for abdominal pain, blood in stool, constipation, diarrhea, nausea and vomiting. Genitourinary: Negative for hematuria. Musculoskeletal: Negative for myalgias. Skin: Negative for rash. Neurological: Negative for dizziness and syncope. Hematological: Does not bruise/bleed easily. Psychiatric/Behavioral: Negative for dysphoric mood and suicidal ideas. Denies Depression SIGNS: Vitals: 09/08/19 1700 09/08/19 1800 09/08/19 2000 09/09/19 0305 BP: 132/60 139/69 138/79 126/64 Pulse: 57 63 63 51 Resp: 15 16 14 Temp: 98.9 F (37.2 C) 98.5 F (36.9 C) TempSrc: Temporal Temporal SpO2: 97% 98% Weight: Height: Intake/Output Summary (Last 24 hours) at 09/09/2019 0750 Last data filed at 09/08/2019 1904 Gross per 24 hour Intake 480 ml Output 1300 ml Net -820 ml Patient Vitals for the past 96 hrs (Last 3 readings): Weight 09/08/19 0426 264 lb 6.2 oz (119.9 kg) 09/07/19 0504 262 lb 14.4 oz (119.3 kg) 09/06/19 0423 260 lb 3.2 oz (118 kg) Physical Exam: Physical Exam Constitutional: Appearance: Normal appearance. HENT: Head: Normocephalic. Eyes: Conjunctiva/sclera: Conjunctivae normal. Cardiovascular: Rate and Rhythm: Normal rate. Pulmonary: Effort: Pulmonary effort is normal. Musculoskeletal: General: No swelling. Skin: General: Skin is warm and dry. Neurological: General: No focal deficit present. Mental Status: He is alert and oriented to person, place, and time. Psychiatric: Mood and Affect: Mood normal. Behavior: Behavior normal. Data: Scheduled Meds:Reviewed Continuous Infusions: sodium chloride Stopped (09/08/19 1800) CBC: Recent Labs 09/09/19 0314 WBC 9.5 HGB 12.7* HCT 37.8* PLT 266 BMP: Recent Labs 09/08/19 0234 09/09/19 0314 NA 137 140 K 4.0 3.7 CL 106 106 CO2 25 25 BUN 26* 23* CREATININE 1.18 1.03 INR: No results for input(s): INR in the last 72 hours. No results for input(s): BNP in the last 72 hours. TSH: Lab Results Component Value Date TSH 1.129 09/06/2019 Cardiac InjuryProfile: No results for input(s): CKTOTAL, CKMB, TROPONINI in the last 72 hours. Lipid Profile: Lab Results Component Value Date TRIG 98 06/06/2019 HDL 50 06/06/2019 LDLCALC 85 06/06/2019 CHOL 155 06/06/2019 EKG: See Report Telemetry Reviewed: NSR Echo: See Report CATH: reviewed IMPRESSIONS/RECOMMENDATIONS: 1. S/p PTCA of RCA with good results 2. Home today with Plavix and Apixaban given CAD intervention and A Fib history F/u tele visit next week * George Abdul RCP - 09/08/2019 9:29 PM EDT [facility] Respiratory Care Department Progress Note Patient was seen in attempts to fulfill CPAP/BiPAP/AutoPAP order. Patient refused PAP therapy/studyat this time. Patient was educated on medical need and reasoning for physician order to ensure patient was making an informed medical decision. All of the patient's questions were answered at this time and patient was informed that if the patient changes their mind regarding wearing PAP to hit their call light or inform their nurse to contact Respiratory. A second, consecutive night of refusing PAP therapy/study results in order completion in the EMR. If future CPAP/BiPAP/AutoPAP therapy or study is indicated please place another order in the EMR and the assigned Respiratory Therapist will reattempt to fulfill orders. Comment or reasoning for refusal: PT refused PAP, states he just cant sleep with it. Thank you for involving Respiratory in the care of this patient, * Yemi South MD - 09/08/2019 2:39 PM EDT Hospitalist Progress Note 09/08/2019 2:39 PM [phone]: Please page me for patient care issues. [phone]: Please page [facility] night Hospitalist for any issues. Subjective: Admit Date: 09/05/2019 PCP: Miguel Calzada Room#: [id number] Interval History: Patient seen and examined, I was wearing N95 mask throughout the patient encounter No new event overnight Patient back from cardiac stress test. Denies any chest pain no. No lightheaded dizziness. Diet NPO Time Specified Exceptions are: Sips with Meds Patient Vitals for the past 96 hrs (Last 3 readings): Weight 09/08/19 0426 264 lb 6.2 oz (119.9 kg) 09/07/19 0504 262 lb 14.4 oz (119.3 kg) 09/06/19 0423 260 lb 3.2 oz (118 kg) Medications: sodium chloride sodium chloride flush 10 mL Intravenous 2 times per day sodium chloride flush 10 mL Intravenous 2 times per day apixaban 5 mg Oral BID amLODIPine 5 mg Oral Daily amiodarone 200 mg Oral Daily atorvastatin 80 mg Oral Daily clopidogrel 75 mg Oral Daily ezetimibe 10 mg Oral Daily furosemide 40 mg Oral Daily lisinopril 40 mg Oral Daily metoprolol tartrate 50 mg Oral BID minoxidil 5 mg Oral BID pantoprazole 40 mg Oral QAM AC LABS: CBC: No results for input(s): WBC, RBC, HGB, HCT, MCV, RDW, PLT in the last 72 hours. BMP: Recent Labs 09/06/19 0533 09/08/19 0234 NA 139 137 K 3.6 4.0 CL 109* 106 CO2 22 25 BUN 20 26* CREATININE 0.84 1.18 GLUCOSE 104* 100 CALCIUM 9.0 9.0 ANIONGAP 9 6 LIVER PROFILE:No results for input(s): AST, ALT, BILITOT, ALKPHOS, LABALBU, PROT in the last 72 hours. PT/INR: No results for input(s): PROTIME, INR in the last 72 hours. CARDIAC ENZYMES: Recent Labs 09/05/19 1611 09/05/19 2347 09/06/19 0533 TROPONINI 0.025 0.028 0.019 Procalcitonin: No results found for: PROCAL Objective: Vitals: BP 138/75 Pulse 56 Temp 97 F (36.1 C) (Temporal) Resp 18 Ht 6' 2 (1.88 m) Wt 264lb 6.2 oz (119.9 kg) SpO2 97% BMI 33.95 kg/m Pulse Ox: SpO2 Av.3 % Min: 97 % Max: 99 % Supplemental O2: O2 Flow Rate (L/min): 2 L/min General appearance: No apparent distress, HEENT: Eyes: No scleral icterus No pallor Oral: Tongue is semi-moist Cardiovascular: S1S2 heard, RRR Respiratory: Clear to auscultation bilaterally Abdomen: Soft, non-tender, non-distended with normal bowel sounds. Musculoskeletal: No obvious deformities seen Skin: No visible rashes or lesions. Neurology- no focal neurology,Awake alert Extremity- no peripheral edema both lower extremities Assessment Chest pain Extensive coronary artery disease with multiple stent placement with last stress test and cardiac catheterization in May 2017 Hypertension hyperlipidemia Atrial fibrillation on anticoagulation Nonsustained ventricular tachycardia Plan Seen by cardiology consult. Recommended to continue metoprolol, Plavix, statin Recommended intensive medical therapy S/p transesophageal echocardiogram and DC cardioversion In sinus Stress tests positive, cardiac catheterization today On amiodarone ,eliquis on zetia Serial troponins negative Sublingual nitroglycerin p.r.n. for chest pain Labs ordered for AM Patient was informed about all work up and treatment plan Discussed with nursing staff Advance Directive: Full Code Discharge planning: YEMI SOUTH MD Division of Hospitalist Medicine Inpatient Medical Services PAGER: [phone] * Zoie Gonzales MD - 09/08/2019 11:20 AM EDT INTERVENTIONAL CARDIOLOGY PROGRESS NOTE Chart and interval events reviewed. Reason for Visit CAD, CP SUBJECTIVE: Shannon Olson states he feels well. Just returned from stress test and reports small amount of CP during test that resolved when it ended. Denies other symptoms. Stress test result abnormal in inferoseptal area. SCHEDULEDMEDICATIONS: sodium chloride flush 10 mL Intravenous 2 times per day apixaban 5 mg Oral BID amLODIPine 5 mg Oral Daily amiodarone 200 mg Oral Daily atorvastatin 80 mg Oral Daily clopidogrel 75 mg Oral Daily ezetimibe 10 mg Oral Daily furosemide 40 mg Oral Daily lisinopril 40 mg Oral Daily metoprolol tartrate 50 mg Oral BID minoxidil 5 mg Oral BID pantoprazole 40 mg Oral QAM AC Active Problems: Chest pain Resolved Problems: * No resolved hospital problems. * Review of Systems: Review of Systems Constitutional: Negative for chills, diaphoresis and fever. HENT: Negative for nosebleeds. Eyes: Negative for visual disturbance. Respiratory: Negative for cough, shortness of breath and wheezing. Cardiovascular: Positive for chest pain (with stress test). Negative for palpitations and leg swelling. Gastrointestinal: Negative for abdominal pain, blood in stool, constipation, diarrhea, nausea and vomiting. Genitourinary: Negative for hematuria. Musculoskeletal: Negative for myalgias. Skin: Negative for rash. Neurological: Negative for dizziness and syncope. Hematological: Does not bruise/bleed easily. Psychiatric/Behavioral: Negative for dysphoric mood and suicidal ideas. Denies Depression SIGNS: Vitals: 09/07/19 2200 09/08/19 0426 09/08/19 0756 09/08/19 0948 BP: 120/69 (!) 140/75 (!) 151/81 129/70 Pulse: 50 55 57 60 Resp: 18 18 18 18 Temp: 97.7 F (36.5 C) 98.8 F (37.1 C) 98.1 F (36.7 C) 97.6 F (36.4 C) TempSrc: Temporal Temporal Temporal Temporal SpO2: 97% 97% 99% 97% Weight: 264 lb 6.2 oz (119.9 kg) Height: Intake/Output Summary (Last 24 hours) at 09/08/2019 1120 Last data filed at 09/07/2019 1805 Gross per 24 hour Intake 600 ml Output 1000 ml Net -400 ml Patient Vitals for the past 96 hrs (Last 3 readings): Weight 09/08/19 0426 264 lb 6.2 oz (119.9 kg) 09/07/19 0504 262 lb 14.4 oz (119.3 kg) 09/06/19 0423 260 lb 3.2 oz (118 kg) Physical Exam: Physical Exam Due to the current efforts to prevent transmission of COVID-19 and also the need to preserve PPE for other caregivers, exam deferred. Data: Scheduled Meds:Reviewed Continuous Infusions: CBC: No results for input(s): WBC, HGB, HCT, PLT in the last 72 hours. BMP: Recent Labs 09/06/19 0533 09/08/19 0234 NA 139 137 K 3.6 4.0 CL 109* 106 CO2 22 25 BUN 20 26* CREATININE 0.84 1.18 TSH: Lab Results Component Value Date TSH 1.129 09/06/2019 Cardiac InjuryProfile: Recent Labs 09/05/19 1611 09/05/19 2347 09/06/19 0533 TROPONINI 0.025 0.028 0.019 Lipid Profile: Lab Results Component Value Date TRIG 98 06/06/2019 HDL 50 06/06/2019 LDLCALC 85 06/06/2019 CHOL 155 06/06/2019 EKG: None today Telemetry Reviewed: SB-SR 40-60s Stress echo 09/08/19: 1. Left ventricle: Systolic function is normal [...] shows worsening with stress, indicating stress-induced ischemia. IMPRESSIONS/RECOMMENDATIONS: 1. CP/Hx CAD/PCI s/p abnormal stress echo - Stable. Reports mild CP during stress test. It was abnormal in inferoseptal area which is where he had prior PA. He did have some CP, so Dr. Gonzales recommends [facility] for further eval. D/w pt and he is agreeable. He did receive apixaban dose this AM and Dr. Gonzales aware. On clopidogrel, statin, BB, PPI. GFR>60. No contrast allergy noted. Coronary Appropriate Use Criteria Coronary Presentation (select one): New Onset Angina <= 2 months History of CABG (select one): No Diabetes (select one): No Anginal Classification (CCS) within 2 weeks (select one): CCS II - Slight limitation, with angina only during vigorous physical activity Anti-anginal Meds within 2 weeks (select all that apply): Yes: Beta Blockers, Antiarrhythmic Agent Other and Non-Statin (Any) Stress or Imaging studies performed (select one), risk/extent of ischemia (select one if applicable): Yes, Low Patient undergoing renal transplant or percutaneous valve procedure (select one): No [facility] Classificaton : I Frailty Score : 3 [place] Protocol :No GFR>60 2. AFib RVR s/p BELLA/DCC 09/07/19 - Stable. In SB-SR. Symptoms improved. On Amio 200mg daily for rhythm control, BB for rate control, and apixaban for OAC. 3. Dispo - If LHC shows no obstructive CAD, then likely recommend discharge home later today. Will await [facility] findings. D/w Dr. Gonzales. Patient seen and discussed stress test. Angina and abnormal inferior c/w ischemia. Plan re cath. Pt agrees. * Zoie Gonzales MD - 09/07/2019 1:28 PM EDT INTERVENTIONAL CARDIOLOGY PROGRESS NOTE Chart and interval events reviewed. Reason for Visit angina with minimal effort SUBJECTIVE: Shannon Olson states feeling much better after cardioversion today. SCHEDULEDMEDICATIONS: sodium chloride flush 10 mL Intravenous 2 times per day apixaban 5 mg Oral BID amLODIPine 5 mg Oral Daily amiodarone 200 mg Oral Daily atorvastatin 80 mg Oral Daily clopidogrel 75 mg Oral Daily ezetimibe 10 mg Oral Daily furosemide 40 mg Oral Daily lisinopril 40 mg Oral Daily metoprolol tartrate 50 mg Oral BID minoxidil 5 mg Oral BID pantoprazole 40 mg Oral QAM AC Active Problems: Chest pain Resolved Problems: * No resolved hospital problems. * Review of Systems: Review of Systems Constitutional: Negative for chills, diaphoresis and fever. HENT: Negative for nosebleeds. Eyes: Negative for visual disturbance. Respiratory: Negative for cough, shortness of breath and wheezing. Cardiovascular: Negative for chest pain, palpitations and leg swelling. Gastrointestinal: Negative for abdominal pain, blood in stool, constipation, diarrhea, nausea and vomiting. Genitourinary: Negative for hematuria. Musculoskeletal: Negative for myalgias. Skin: Negative for rash. Neurological: Negative for dizziness and syncope. Hematological: Does not bruise/bleed easily. Psychiatric/Behavioral: Negative for dysphoric mood and suicidal ideas. Denies Depression SIGNS: Vitals: 09/07/19 0936 09/07/19 0946 09/07/19 1008 09/07/19 1231 BP: 113/71 117/74 111/66 Pulse: 72 62 53 Resp: 20 18 Temp: 97.4 F (36.3 C) 97.5 F (36.4 C) TempSrc: Temporal Temporal SpO2: 95% 98% Weight: Height: Intake/Output Summary (Last 24 hours) at 09/07/2019 1328 Last data filed at 09/07/2019 0638 Gross per 24 hour Intake 400 ml Output 1525 ml Net -1125 ml Patient Vitals for the past 96 hrs (Last 3 readings): Weight 09/07/19 0504 262 lb 14.4 oz (119.3 kg) 09/06/19 0423 260 lb 3.2 oz (118 kg) 09/05/19 1213 260 lb 1.6 oz (118 kg) Physical Exam: Physical Exam No exam per Covid-19 protocol Data: Scheduled Meds:Reviewed Continuous Infusions: CBC: Recent Labs 09/05/19 1016 WBC 9.6 HGB 14.1 HCT 42.0 PLT 255 BMP: Recent Labs 09/05/19 1016 09/06/19 0533 NA 139 139 K 4.0 3.6 CL 107 109* CO2 23 22 BUN 22* 20 CREATININE 0.96 0.84 INR: No results for input(s): INR in the last 72 hours. No results for input(s): BNP in the last 72 hours. TSH: Lab Results Component Value Date TSH 1.129 09/06/2019 Cardiac InjuryProfile: Recent Labs 09/05/19 1611 09/05/19 2347 09/06/19 0533 TROPONINI 0.025 0.028 0.019 Lipid Profile: Lab Results Component Value Date TRIG 98 06/06/2019 HDL 50 06/06/2019 LDLCALC 85 06/06/2019 CHOL 155 06/06/2019 EKG: See Report Telemetry Reviewed: atrial fib- NSR Echo: See Report IMPRESSIONS/RECOMMENDATIONS: 1. S/P A Fib with RVR 2. Angina with minimal effort Plan stress test in AM Cath if positive : LBBB with TACHY * Yemi South MD - 09/07/2019 10:54 AM EDT Hospitalist Progress Note 09/07/2019 10:54 AM [phone]: Please page me for patient care issues. [phone]: Please page [facility] night Hospitalist for any issues. Subjective: Admit Date: 09/05/2019 PCP: Miguel Calzada Room#: [id number]/[id number] Interval History: Patient seen and examined, I was wearing N95 mask throughout the patient encounter No new event overnight Patient post cardioversion this am. Denies any chest pain currently. No shortness of breath DIET CARDIAC; Patient Vitals for the past 96 hrs (Last 3 readings): Weight 09/07/19 0504 262 lb 14.4 oz (119.3 kg) 09/06/19 0423 260 lb 3.2 oz (118 kg) 09/05/19 1213 260 lb 1.6 oz (118 kg) Medications: sodium chloride flush 10 mL Intravenous 2 times per day apixaban 5 mg Oral BID amLODIPine 5 mg Oral Daily amiodarone 200 mg Oral Daily atorvastatin 80 mg Oral Daily clopidogrel 75 mg Oral Daily ezetimibe 10 mg Oral Daily furosemide 40 mg Oral Daily lisinopril 40 mg Oral Daily metoprolol tartrate 50 mg Oral BID minoxidil 5 mg Oral BID pantoprazole 40 mg Oral QAM AC LABS: CBC: Recent Labs 09/05/19 1016 WBC 9.6 RBC 4.87 HGB 14.1 HCT 42.0 MCV 86.2 RDW 15.1* PLT 255 BMP: Recent Labs 09/05/19 1016 09/06/19 0533 NA 139 139 K 4.0 3.6 CL 107 109* CO2 23 22 BUN 22* 20 CREATININE 0.96 0.84 GLUCOSE 109* 104* CALCIUM 9.0 9.0 ANIONGAP 9 9 LIVER PROFILE:No results for input(s): AST, ALT, BILITOT, ALKPHOS, LABALBU, PROT in the last 72 hours. PT/INR: No results for input(s): PROTIME, INR in the last 72 hours. CARDIAC ENZYMES: Recent Labs 09/05/19 1611 09/05/19 2347 09/06/19 0533 TROPONINI 0.025 0.028 0.019 Procalcitonin: No results found for: PROCAL Objective: Vitals: BP 117/74 Pulse 62 Temp 97.4 F (36.3 C) (Temporal) Resp 20 Ht 6' 2 (1.88 m) Wt 262 lb 14.4 oz (119.3 kg) SpO2 95% BMI 33.75 kg/m Pulse Ox: SpO2 Av.7 % Min: 94 % Max: 98 % Supplemental O2: O2 Flow Rate (L/min): 2 L/min General appearance: No apparent distress, HEENT: Eyes: No scleral icterus No pallor Oral: Tongue is semi-moist Cardiovascular: S1S2 heard, RRR Respiratory: Clear to auscultation bilaterally Abdomen: Soft, non-tender, non-distended with normal bowel sounds. Musculoskeletal: No obvious deformities seen Skin: No visible rashes or lesions. Neurology- no focal neurology,Awake alert Extremity- no peripheral edema both lower extremities Assessment Chest pain Extensive coronary artery disease with multiple stent placement with last stress test and cardiac catheterization in May 2017 Hypertension hyperlipidemia Atrial fibrillation on anticoagulation Nonsustained ventricular tachycardia Plan Seen by cardiology consult. Recommended to continue metoprolol, Plavix, statin Recommended intensive medical therapy Post transesophageal echocardiogram and DC cardioversion this am In sinus On amiodarone ,eliquis on zetia Serial troponins negative Sublingual nitroglycerin p.r.n. for chest pain Labs ordered for AM Patient was informed about all work up and treatment plan Discussed with nursing staff Advance Directive: Full Code Discharge planning: YEMI SOUTH MD Division of Hospitalist Medicine Inpatient Medical Services PAGER: [phone] * Yemi South MD - 09/06/2019 2:43 PM EDT Hospitalist Progress Note 09/06/2019 2:43 PM [phone]: Please page me for patient care issues. [phone]: Please page [facility] night Hospitalist for any issues. Subjective: Admit Date: 09/05/2019 PCP: Miguel Calzada Room#: 1539/1539B Interval History: Patient seen and examined, I was wearing N95 mask throughout the patient encounter No new event overnight Patient had that side of chest tightness and he was ambulating today. Denies any chest pain currently. No shortness of breath DIET CARDIAC; Diet NPO, After Midnight Patient Vitals for the past 96 hrs (Last 3 readings): Weight 09/06/19 0423 260 lb 3.2 oz (118 kg) 09/05/19 1213 260 lb 1.6 oz (118 kg) 09/05/19 0925 255 lb (115.7 kg) Medications: potassium chloride 40 mEq Oral BID magnesium sulfate 4 g Intravenous Once apixaban 5 mg Oral BID amLODIPine 5 mg Oral Daily [Held by provider] amiodarone 200 mg Oral Daily atorvastatin 80 mg Oral Daily clopidogrel 75 mg Oral Daily ezetimibe 10 mg Oral Daily furosemide 40 mg Oral Daily lisinopril 40 mg Oral Daily metoprolol tartrate 50 mg Oral BID minoxidil 5 mg Oral BID pantoprazole 40 mg Oral QAM AC LABS: CBC: Recent Labs 09/05/19 1016 WBC 9.6 RBC 4.87 HGB 14.1 HCT 42.0 MCV 86.2 RDW 15.1* PLT 255 BMP: Recent Labs 09/05/19 1016 09/06/19 0533 NA 139 139 K 4.0 3.6 CL 107 109* CO2 23 22 BUN 22* 20 CREATININE 0.96 0.84 GLUCOSE 109* 104* CALCIUM 9.0 9.0 ANIONGAP 9 9 LIVER PROFILE:No results for input(s): AST, ALT, BILITOT, ALKPHOS, LABALBU, PROT in the last 72 hours. PT/INR: No results for input(s): PROTIME, INR in the last 72 hours. CARDIAC ENZYMES: Recent Labs 09/05/19 1611 09/05/19 2347 09/06/19 0533 TROPONINI 0.025 0.028 0.019 Procalcitonin: No results found for: PROCAL Objective: Vitals: BP (!) 160/98 Pulse 76 Temp 98.3 F (36.8 C) (Temporal) Resp 18 Ht 6' 2 (1.88 m) Wt 260 lb 3.2 oz (118 kg) SpO2 98% BMI 33.41 kg/m Pulse Ox: SpO2 Av.4 % Min: 94 % Max: 98 % Supplemental O2: O2 Flow Rate (L/min): 2 L/min General appearance: No apparent distress, HEENT: Eyes: No scleral icterus No pallor Oral: Tongue is semi-moist Cardiovascular: S1S2 heard, RRR Respiratory: Clear to auscultation bilaterally Abdomen: Soft, non-tender, non-distended with normal bowel sounds. Musculoskeletal: No obvious deformities seen Skin: No visible rashes or lesions. Neurology- no focal neurology,Awake alert Extremity- no peripheral edema both lower extremities Assessment Chest pain Extensive coronary artery disease with multiple stent placement with last stress test and cardiac catheterization in May 2017 Hypertension hyperlipidemia Atrial fibrillation on anticoagulation Nonsustained ventricular tachycardia Plan Seen by cardiology consult. Recommended to continue metoprolol, Plavix, statin Recommended intensive medical therapy Patient to undergo transesophageal echocardiogram and DC cardioversion per cardiology Recommended to continue amiodarone home dose Serial troponins negative Sublingual nitroglycerin p.r.n. for chest pain Labs ordered for AM Patient was informed about all work up and treatment plan Discussed with nursing staff Advance Directive: Full Code Discharge planning: YEMI SOUTH MD Division of Hospitalist Medicine Inpatient Medical Services PAGER: [phone] * Brandi Gupta RD, LD - 09/06/2019 10:03 AM EDT Nutrition Assessment Type and Reason for Visit: Initial, Positive Nutrition Screen(weight loss, poor appetite) Nutrition Recommendations: 1. Recommend continue on diet as currently ordered, patient is currently ordered a Cardiac Diet which is appropriate related to past medical history of CAD/HTN/HLD/TIA. 2. Will continue to monitor PO intake for adequacy 3. Pt denies educational needs at this time, pt has been intentionally trying to lose weight, states that he is monitoring portion sizes and choosing healthier options, no desserts in the house sincehis moved out. Reviewed cardiac diet restrictions with pt and he denies need for printed materials to take home. 4. Will continue to monitor weight changes, labs and overall nutrition status 5. RD will continue to follow up weekly Nutrition Assessment: Due to efforts to prevent transmission of COVID-19 and to aide in conservation of PPE did not conduct face to face encounter with patient at this time, did call into patient room and was able to complete nutrition assessment, pt presented to the emergency room with complaints of chest pain brought in by EMS, patient was cleaning his house and started having chest tightness associated with shortness of breath, patient went to bed and felt better in the morning but he then again experienced chest tightness, in ED patient was found to be A Fib, Cardiology consult is pending, pt states that currently his appetite is good, ate 76-100% of breakfast today, pt states that he has no food allergies or chewing/swallowing issues, pt reports that he had knee surgery 03/2019 and since then he has been losing weight, he states that he originally was losing weight due to poor appetite and pain after surgery but he states that he has continued to have weight loss intentionally bymonitoring his portion sizes and watching the foods he is eating, he states that he is down about 45# since his surgery in March, pt CBW 260# and he reports UBW of ~300- 305#, he states that he lives alone and his moved out in May and Lorraine been doing really well since then because she eats a lot of pastries and desserts and if there is none of that in the house Im not tempted to eat it, discussed with pt current diet restrictions and he denies needing handouts to take home on Cardiac Diet and states he has been ordering his meals without difficulty, will monitor Malnutrition Assessment: Malnutrition Status: No malnutrition Nutrition Risk Level: High Nutrient Needs: Estimated Daily Total Kcal: 1901-2160kcals/day, pt intentionally trying to lose weight Estimated Daily Protein (g): 86-104gm pro/day Estimated Daily Total Fluid (ml/day): per MD recommendations Nutrition Diagnosis: Problem: Altered nutrition-related lab values, Overweight/Obese Etiology: related to Endocrine dysfunction(multifactoral) ? Signs and symptoms: as evidenced by Lab values, BMI Objective Information: Nutrition-Focused Physical Findings: Todd = 21, skin intact, -I/O, active bowel sounds, lives alone, weight loss has mostly been intentional over recent months per pt report Wound Type: None Current Nutrition Therapies: Oral Diet Orders: Cardiac Oral Diet intake: 76-100%(breakfast today per pt) Oral Nutrition Supplement (ONS) Orders: None ONS intake: (no supplement ordered) Anthropometric Measures: Ht: 6' 2 (188 cm) Current Body Wt: 260 lb 2.3 oz (118 kg)(no method 09/05) Admission Body Wt: 255 lb (115.7 kg)(stated 09/04) Usual Body Wt: (300-305# per pt report) per EPIC: 294# on 10/10, 280# on 06/05 [place] Body Wt: 190 lb 7.6 oz (86.4 kg), % [place] Body 137% BMI Classification: BMI 30.0 - 34.9 Obese Class I Nutrition Interventions: Continue current diet Continued Inpatient Monitoring Nutrition Evaluation: Evaluation: Goals set Goals: PO intake will remain >50% at meals Monitoring: Meal Intake, Diet Tolerance, Skin Integrity, I&O, Weight, Pertinent Labs, Patient/Family Education Contact Number: pager x [phone] * Daysi Morton RN - 09/05/2019 12:20 PM EDT Arrived to room 539B from ED. Awake, A&Ox3. No co at this time. Pt states he had chest pain at home, but none since he came to hospital. Pt oriented to room and use of call light. VS obtained, tele monitor on. Pt communicates understanding. documented in this encounter* Serina Mason, JESUS - 09/15/2019 12:51 PM EDT Sent perfect serve to Dr. Tavarez regarding discharge for patient. Ok with cardiology to go home. documented in this encounter Assessments Diagnosis Chest pain, unspecified type Ventricular tachycardia (HCC) Paroxysmal ventricular tachycardia PAF (paroxysmal atrial fibrillation) (HCC) Atrial fibrillation Diagnosis Chest pain, unspecified type Reason for Referral Status Reason Specialty Diagnoses / Procedures Referred By Contact Referred To Contact Pending Review Radiology Diagnoses Pneumonia due to COVID-19 virus ILD (interstitial lung disease) (HCC) Pneumoconiosis (HCC) Procedures CT Chest WO Contrast Quan Green, METAL TILE LATHER - LABOR TRAINING MANAGER [address] [place] [id number] Status Reason Specialty Diagnoses / Procedures Re ferred By Contact Referred To Contact Open Pulmonary Disease Diagnoses Pneumonia due to COVID-19 virus Interstitial lung disease (HCC) Pneumoconiosis (HCC) Procedures Full PFT Study With Bronchodilator Tree Gonzales MD [address] [place] [address] Status Reason Specialty Diagnoses / Procedures Referred By Contact Referred To Contact In Progress Specialty Services Required Cardiac Rehabilitation Diagnoses Coronary artery disease involving [place] coronary artery of [place] heart without angina pectoris Zoie Gonzales MD 95 [facility] [address] [place] [address] [facility] 95 [facility] Card Rehab [address] [place] [address] Scheduling Instructions [facility] Cardiac Rehab 95 [facility] [address] [place] [address] Status Reason Specialty Diagnoses / Procedures Referred By Contact Referred To Contact Open Specialty Services Required Cardiac Rehabilitation Diagnoses CAD in [place] artery Milagro Jaimes, METAL TILE LATHER - LABOR TRAINING MANAGER [address] [place] [address] Specialty Diagnoses / Procedures Referred By Contac t Referred To Contact Diagnoses COPD with asthma (HCC) Procedures Full PFT Study With Bronchodilator Tree Gonzales MD [address] [place] [address] Referral ID Status Reason Start Date Expiration Date Visits Re quested Visits Authorized [id number] Closed 10/23/2021 10/23/2022 1 1 Specialty Diagnoses / Procedures Referred By Contac t Referred To Contact Cardiology Diagnoses Localized edema Procedures Transthoracic echocardiogram (TTE) complete with contrast, bubble, strain, and 3D PRN SD ECHO TTHRC R-T 2D W/WOM-MODE COMPL SPEC&COLR D SD TTE W OR WO FOL WCON,DOPPLER Samra Gonzalez, METAL TILE LATHER - LABOR TRAINING MANAGER [address] [place] [address] Referral ID Status Reason Start Date Expiration Date Visits Requested Visits Authorized [id number] Pending Review Perform Procedure 09/28/2022 03/27/2023 1 1 Specialty Diagnoses / Procedures Referred By Contac t Referred To Contact Sleep Medicine Diagnoses HIPOLITO (obstructive sleep apnea) Procedures Polysomnography Chris Boyce MD 75 [facility] [address] [place] [address] [facility] Sleep Lab [address] [place] [address] Referral ID Status Reason Start Date Expiration Date V isits Requested Visits Authorized [id number] Authorized 11/11/2022 05/10/2023 1 1 Specialty Diagnoses / Procedures Referred By Contac t Referred To Contact Cardiology Diagnoses Localized edema Procedures Transthoracic echocardiogram (TTE) complete with contrast, bubble, strain, and 3D PRN SD ECHO TTHRC R-T 2D W/WOM-MODE COMPL SPEC&COLR D SD TTE W OR WO FOL WCON,DOPPLER Samra Gonzalez, METAL TILE LATHER - LABOR TRAINING MANAGER [address] [place] [address] [facility] [address] [facility]-Invasive [facility]iology [address] [place] [address] Referral ID Status Reason Start Date Expiration Date V isits Requested Visits Authorized [id number] Closed Perform Procedure 09/28/2022 03/27/2023 1 1 Specialty Diagnoses / Procedures Referred By Dariusz t Referred To Contact Carmen Thornton, METAL TILE LATHER - LABOR TRAINING MANAGER [address] [facility] [address] [place] [address] Referral ID Status Reason Start Date Expiration Date V isits Requested Visits Authorized [id number] Authorized 11/30/2022 02/29/2024 1 1 Chief Complaint and Reason for Visit Chief Complaint ABDOMINAL PAIN Carpal tunnel syndrome, bilateral upper limbs Carpal tunnel syndrome, bilateral upper limbs WEAKNESS Chief Complaint ABDOMINAL PAIN Carpal tunnel syndrome, bilateral upper limbs Carpal tunnel syndrome, bilateral upper limbs WEAKNESS dysphagia Chief Complaint WEAKNESS dysphagia Chief Complaint dysphagia UPPER GI Reason for Visit Low hemoglobin Total bilirubin, elevated Chronic diarrhea Esophageal reflux Chief Complaint UPPER GI 2 WK FU 2 Month FU Reason for Visit Low hemoglobin Total bilirubin, elevated Chronic diarrhea Esophageal reflux Gastritis Chronic diarrhea Esophageal reflux Diarrhea Dysphagia Chief Complaint SEBACEOUS CYST SCALP \infected req RC DRESSING CHANGE 4 MO FU Spot on Cheek R Side LEFT SHOULDER ARTHROSCOPY RC REPAIR... LEFT SHOULDER ARTHROSCOPY RC REPAIR... LEFT SHOULDER ARTHROSCOPY RC REPAIR... Reason for Visit Epidermal inclusion cyst Diarrhea Gastric reflux Skin lesion Rotator cuff disorder Chief Complaint 4 MO FU Spot on Cheek R Side LEFT SHOULDER ARTHROSCOPY RC REPAIR... CP LEFT SHOULDER ARTHROSCOPY RC REPAIR... LEFT SHOULDER ARTHROSCOPY RC REPAIR... NODULE Reason for Visit Diarrhea Gastric reflux Skin lesion Rotator cuff disorder Chief Complaint 4 MO FU Spot on Cheek R Side LEFT SHOULDER ARTHROSCOPY RC REPAIR... CP LEFT SHOULDER ARTHROSCOPY RC REPAIR... LEFT SHOULDER ARTHROSCOPY RC REPAIR... NODULE BMP, CBC AUTO DIFF, NT PRO BNP, HEPTIC FUNCTION P Reason for Visit Diarrhea Gastric reflux Skin lesion Rotator cuff disorder Chief Complaint 4 MO FU Spot on Cheek R Side LEFT SHOULDER ARTHROSCOPY RC REPAIR... CP LEFT SHOULDER ARTHROSCOPY RC REPAIR... LEFT SHOULDER ARTHROSCOPY RC REPAIR... NODULE BMP, CBC AUTO DIFF, NT PRO BNP, HEPTIC FUNCTION P THYROID Localized edema Reason for Visit Diarrhea Gastric reflux Skin lesion Rotator cuff disorder Left thyroid nodule Chief Complaint Spot on Cheek R Side LEFT SHOULDER ARTHROSCOPY RC REPAIR... CP LEFT SHOULDER ARTHROSCOPY RC REPAIR... LEFT SHOULDER ARTHROSCOPY RC REPAIR... NODULE BMP, CBC AUTO DIFF, NT PRO BNP, HEPTIC FUNCTION P THYROID Localized edema Reason for Visit Skin lesion Rotator cuff disorder Left thyroid nodule Chief Complaint Spot on Cheek R Side LEFT SHOULDER ARTHROSCOPY RC REPAIR... CP LEFT SHOULDER ARTHROSCOPY RC REPAIR... LEFT SHOULDER ARTHROSCOPY RC REPAIR... NODULE BMP, CBC AUTO DIFF, NT PRO BNP, HEPTIC FUNCTION P THYROID Localized edema chest pain NSTEMI, CHEST PAIN Reason for Visit Skin lesion Rotator cuff disorder Left thyroid nodule Chief Complaint LEFT SHOULDER ARTHRO SCOPY RC REPAIR... CP LEFT SHOULDER ARTHROSCOPY RC REPAIR... LEFT SHOULDER ARTHROSCOPY RC REPAIR... NODULE BMP, CBC AUTO DIFF, NT PRO BNP, HEPTIC FUNCTION P THYROID Localized edema chest pain NSTEMI, CHEST PAIN Reason for Visit Rotator cuff disorde r Left thyroid nodule Chief Complaint NODULE BMP, CBC AUTO DIFF, NT PRO BNP, HEPTIC FUNCTION P THYROID Localized edema chest pain NSTEMI, CHEST PAIN Reason for Visit Left thyroid nodule Chief Complaint NODULE BMP, CBC AUTO DIFF, NT PRO BNP, HEPTIC FUNCTION P THYROID Localized edema chest pain NSTEMI, CHEST PAIN FALL Reason for Visit Left thyroid nodule Chief Complaint THYROID Localized edema chest pain NSTEMI, CHEST PAIN FALL NEED ORDER Reason for Visit Left thyroid nodule Chief Complaint THYROID Localized edema chest pain NSTEMI, CHEST PAIN FALL NEED ORDER EORDER Reason for Visit Left thyroid nodule Chief Complaint chest pain NSTEMI, CHEST PAIN FALL NEED ORDER EORDER Dysphagia, unspecified Chief Complaint FALL NEED ORDER EORDER Dysphagia, unspecified Chief Complaint NEED ORDER EORDER Dysphagia, unspecified Dysphagia Reason for Visit Dysphagia Chief Complaint Dysphagia, unspecifi ed Dysphagia Reason for Visit Dysphagia Chief Complaint Dysphagia, unspecifi ed Dysphagia REVIEW SCOPE RESULTS CONSTIPATION Reason for Visit Dysphagia Chest pain Dysphagia Gastric reflux Chief Complaint Dysphagia, unspecifi ed Dysphagia REVIEW SCOPE RESULTS CONSTIPATION BILE GASTRITIS Reason for Visit Dysphagia Chest pain Dysphagia Gastric reflux Chief Complaint Admit Date AFIB June 20, 2024 7 :47am Atrial fibrillation June 20, 2024 7 :59am Additional Source Comments (unrecognized sect ion and content) No Status Records FoundNo Status Records FoundNo Status Records FoundNo Status Records FoundNo Status Records FoundNo Status Records Found INFORMATION SOURCE (unrecogn ized section and content) DATE CREATED AUTHOR 04/21/2019 [facility] [employer] ([place]) DATE CREATED AUTHOR AUTHOR'S ORGANIZ ATION 09/20/2019 [facility] [employer] DATE CREATED AUTHOR AUTHOR'S ORGANIZ ATION 07/06/2021 [facility] DATE CREATED AUTHOR AUTHOR'S ORGANIZ ATION 01/03/2022 [facility] DATE CREATED AUTHOR AUTHOR'S ORGANIZ ATION 09/15/2024 [facility] DATE CREATED AUTHOR AUTHOR'S ORGANIZ ATION 10/21/2024 [facility] Reason for Visit (unrecogniz ed section and content) Reason Comments Chest Pain Pt brought in by EMS for c/o chest tightness. Pt reports the pain started last night but went away and came back again this am. Pt received 324mg ASA, nitro SL and O2 en route by EMS. Pt reports significant cardiac history including PA in 1999, 18 previous stents and prior cardioversion. Reason Comments Chest Pain Reason Comments Edema Shortness of breath. Lower ext edema following shoulder surgery Reason Comments Follow-up Specialty Diagnoses / Procedures Referred By Contac t Referred To Contact Cardiology Diagnoses Localized edema Procedures Transthoracic echocardiogram (TTE) complete with contrast, bubble, strain, and 3D PRN SD ECHO TTHRC R-T 2D W/WOM-MODE COMPL SPEC&COLR D SD TTE W OR WO FOL COLE SOLANO Sadine D, METAL TILE LATHER - LABOR TRAINING MANAGER [address] [place] [address] [facility] [address] Non-Invasive Cardiology [address] [place] [address] Referral ID Status Reason Start Date Expiration Date V isits Requested Visits Authorized [id number] Closed Perform Procedure 09/28/2022 03/27/2023 1 1 Reason Comments Follow-up Reason Comments Sleep Apnea Results Specialty Diagnoses / Procedures Referred By Dariusz t Referred To Contact Diagnoses Chest pain NSTEMI Procedures . Terry Drew MD [address] [facility], [facility] [address] [place] [address] [facility] [address] [place] [phone] Referral ID Status Reason Start Date Expiration Date Visits Re quested Visits Authorized [id number] 1 1 Reason Onset Date Comments hematoma 01/01/2023 Reason Comments Med Refill Reason Onset Date Comments symptoms 01/26/2023 Reason Comments Shortness of Breath A lot Chest Pain May be due to acid r eflux Dizziness Once in awhile Reason Onset Date Comments Med Management 02/09/2023 Specialty Diagnoses / Procedures Referred By Dariusz t Referred To Contact Diagnoses 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) [I25.118] Procedures Left heart cath / coronary angiography Zoie Gonzales MD [address] [place] [address] [facility] Cardiac Cath/Ep Lab [address] [place] [phone] Referral ID Status Reason Start Date Expiration Date Visits Re quested Visits Authorized [id number] 1 1 Reason Comments Follow-up Shortness of Breath Chest Pain Reason Comments Follow-up Sleep Apnea Reason Comments Follow-up Shortness of Breath Dizziness Reason Onset Date Comments Results 04/13/2023 Reason Comments Follow-up Chest Pain Dizziness Shortness of Breath Reason Onset Date Comments Return call request/ sleep study orders 07/01/19 24 Reason Comments Coronary Artery Disease Hypertension Atrial Fibrillation Reason Onset Date Comments Med Management 12/20/2023 Reason Comments Hospital Follow-up Specialty Diagnoses / Procedures Referred By Dariusz t Referred To Contact Sleep Medicine Diagnoses HIPOLITO (obstructive sleep apnea) Procedures Polysomnography Chris Boyce MD [address] [place] [address] [facility] [address] [place] [address] Referral ID Status Reason Start Date Expiration Date Visits Re quested Visits Authorized [id number] Closed 11/11/2022 05/10/2023 1 1 Reason Onset Date Comments Med Refill 04/28/2024 Reason Comments 6 Month Follow-up Reason Onset Date Comments Chest Pain 07/06/2024 Reason Comments Follow-up Chest Pain Dizziness Reason Onset Date Comments Appointment 07/13/2024 Cancel and R/S Reason Comments Coronary Artery Disease Reason Comments Follow-up Shortness of Breath Reason Onset Date Comments Procedure 09/07/2024 Reason Onset Date Comments [facility] Outreach 09/18/2024 Reason Comments Coronary Artery Disease Reason Onset Date Comments [facility] Outreach 10/09/2024 Orders 10/09/2024 Reason Onset Date Comments Results 10/19/2024 Reason Onset Date Comments [facility] Outreach 10/18/2024 Reason Onset Date Comments Orders 09/28/2024 Ordered Prescriptions (unrec ognized section and content) Prescription Sig Dispensed Refills Start Date End Da te tiotropium (SPIRIVA) 18 MCG inhalation capsule Inhale 1 capsule into the lungs daily 30 capsule 3 03/18/2021 mometasone-formoterol (DULERA) 100-5 MCG/ACT inhaler Inhale 2 puffs into the lungs 2 times daily 1 each 0 03/18/2021 metoprolol tartrate (LOPRESSOR) 50 MG tablet Take 1 tablet by mouth 2 times daily 60 tablet 3 03/18/2021 Prescription Sig Dispensed Refills Start Date End Da te isosorbide mononitrate (IMDUR) 30 MG extended release tablet Take 1 tablet by mouth daily 90 tablet 3 12/02/2021 Scheduled Active and Recently Administ ered Medications (unrecognized section and content) Medication Order 03/16/2021 03/17/2021 03/18/2021 amiodarone (CORDARONE) tablet 200 mg 200 mg, Oral, DAILY, First dose on 03/17/21 at 1315 1353 (Not Given - Provider: Silva Hammond RN - Reason: Patient took at home) 0837 (Given - Provider: Caleb Meeks RN) amLODIPine (NORVASC) tablet 5 mg 5 mg, Oral, DAILY, First dose on Wed03/17/21 at 1315 1353 (Not Given - Provider: Silva Hammond RN - Reason: Patient took at home) 0837 (Given - Provider: Caleb Meeks RN) amLODIPine (NORVASC) tablet 5 mg (COMPLETED) 5 mg, Oral, ONCE, On Wed03/17/21 at 1530, For 1 dose 1522 (Given - Provider: Silva Hammond RN) apixaban (ELIQUIS) tablet 5 mg 5 mg, Oral, 2 TIMES DAILY, First dose on Wed03/17/21 at 1315, ANTICOAGULANT 1409 (Not Given - Provider: Silva Hammond RN - Reason: Other - Comment: starting with evening dose per Liza Jaimes NP)2030 (Given - Provider: Rj Shaw RN) 0837 (Given - Provider: Caleb Meeks RN)2100 (Due) atorvastatin (LIPITOR) tablet 80 mg 80 mg, Oral, NIGHTLY, First dose on Wed03/17/21 at 2100, Recovery(Cath) 2030 (Given - Provider: Rj Shaw RN) 2100 (Due) clopidogrel (PLAVIX) tablet 75 mg 75 mg, Oral, DAILY, First dose on Wed03/17/21 at 1315 1354 (Not Given - Provider: Silva Hammond RN - Reason: Patient took at home) 0837 (Given - Provider: Caleb Meeks RN) lisinopril (PRINIVIL;ZESTRIL) tablet 20 mg 20 mg, Oral, DAILY, First dose on Wed03/17/21 at 1315 1413 (Given - Provider: Silva Hammond RN) 0837 (Given - Provider: Caleb Meeks RN) metoprolol tartrate (LOPRESSOR) tablet 50 mg 50 mg, Oral, 2 TIMES DAILY, First dose on Wed03/17/21 at 1315 1354 (Not Given - Provider: Silva Hammond RN - Reason: Patient took at home)2030 (Given - Provider: Rj Shaw RN) 0840 (Given - Provider: Caleb Meeks RN)2100 (Due) minoxidil (LONITEN) tablet 5 mg 5 mg, Oral, 2 TIMES DAILY, First dose on Wed03/17/21 at 1315 1355 (Not Given - Provider: Silva Hammond RN - Reason: Patient took at home)2029 (Given - Provider: Rj Shaw RN) 0838 (Given - Provider: Caleb Meeks RN)2099 (Due) mometasone-formoterol (DULERA) 100-5 MCG/ACT inhaler 2 puff(Linked Group 1) 2 puff, Inhalation, 2 TIMES DAILY, First dose on Wed03/17/21 at 1345, Rinse mouth out with water (without swallowing) after every dose. Formulary substitute f or Trelegy Ellipta 135 (Not Given - Provider: Silva Hammond RN - Reason: Patient took at home)2030 (Given - Provider: Rj Shaw RN) 0838 (Given - Provider: Caleb Meeks RN)1999 (Due) sodium chloride flush 0.9 % injection 5-40 mL 5-40 mL, IntraVENous, EVERY 12 HOURS SCHEDULED (2 times per day), First dose on Wed03/17/21 at 2100, For Line Patency: Peripheral IV = 5 [...] mL Midline or Central Line = 20 mL/lumen, Recovery(Cath) 2035 (Not Given - Provider: Rj Shaw RN - Reason: IV Fluid Infusing) 0838 (Given - Provider: Caleb Meeks RN)2099 (Due) spironolactone (ALDACTONE) tablet 25 mg 25 mg, Oral, DAILY, First dose on Wed03/17/21 at 1315 1413 (Given - Provider: Silva Hammond RN) 0837 (Given - Provider: Caleb Meeks RN) tiotropium (SPIRIVA) inhalation capsule 18 mcg(Linked Group 1) 18 mcg, Inhalation, DAILY, First dose on Wed03/17/21 at 1345, Not for oral use. To ensure drug delivery the contents of each capsule should be inhaled twice Formulary substitute for Trelegy Ellipta 1354 (Not Given - Provider: Silva Hammond RN - Reason: Other) 0837 (Given - Provider: Caleb Meeks RN) Continuous Medication Order 03/16/2021 03/17/2021 03/18/2021 0.9 % sodium chloride infusion IntraVENous, at 300 mL/hr, CONTINUOUS, Starting on Wed03/17/21 at 0800, Run For 1 hour and than reduce to KVO, Pre-Procedure(Cath) 0800 (Due) 0.9 % sodium chloride infusion IntraVENous, at 100 mL/hr, CONTINUOUS, Starting on Wed03/17/21 at 1215 1309 (New Bag - Provider: Silva Hammond RN - Comment: infusing from cardiac cath tech)2034 (New Bag - Provider: Rj Shaw RN) 0634 (New Bag - Provider: Rj Shaw RN) PRN Medication Order 03/16/2021 03/17/2021 03/18/2021 0.9 % sodium chloride infusion 25 mL, IntraVENous, at 100 mL/hr, PRN, If patient receiving piggyback infusions without ordered maintenance IV fluids or with frequent/long duration piggyback infusions, Starting on Wed03/17/21 at 1214, Administer at the same rate as the piggyback being infused., Recovery(Cath) acetaminophen (TYLENOL) tablet 650 mg 650 mg, Oral, EVERY 4 HOURS PRN, Pain Mild (1-3), Fever, Fever >100.5 F (38 C), Starting on Wed03/17/21 at 1214, Maximum dose of acetaminophen is 4000 mg from all sources in 24 hours., Recovery(Cath) albuterol sulfate HFA 108 (90 Base) MCG/ACT inhaler 2 puff 2 puff, Inhalation, 4 TIMES DAILY PRN, Wheezing, Starting on Wed03/17/21 at 1247 nitroGLYCERIN (NITROSTAT) SL tablet 0.4 mg 0.4 mg, SubLINGual, EVERY 5 MIN PRN, Chest pain, Starting on Wed03/17/21 at 1248, Place 1 tablet under tongue upon chest pain, wait 5 minutes and may repeat up to 3 doses in 15 minutes. Do not crush or break. sodium chloride flush 0.9 % injection 5-40 mL 5-40 mL, IntraVENous, PRN, Line Care, After every IV line use, Starting on Wed03/17/21 at 0725, For Line Patency: Peripheral IV = 5 [...] mL Midline or Central Line = 20 mL/lumen, Pre-Procedure(Cath) sodium chloride flush 0.9 % injection 5-40 mL 5-40 mL, IntraVENous, PRN, Line Care, Starting on Wed03/17/21 at 1214, For Line Patency: Peripheral IV = 5 [...] mL Midline or Central Line = 20 mL/lumen, Recovery(Cath) Linked Groups Order Group 1: mometasone-formoterol (DULERA) 100-5 MCG/ACT inhaler 2 puffJump to med 2 puff, Inhalation, 2 TIMES DAILY, First dose on Wed03/17/21 at 1345
Rinse mouth out with water (without swallowing) after every dose. Formulary substitute f or Trelegy Ellipta
And tiotropium (SPIRIVA) inhalation capsule 18 mcgJump to med 18 mcg, Inhalation, DAILY, First dose on Wed03/17/21 at 1345
Not for oral use. To ensure drug delivery the contents of each capsule should be inhaled twice Formulary substitute for Trelegy Ellipta
Scheduled Medication Order 11/29/2021 11/30/2021 12/01/2021 atorvastatin (LIPITOR) tablet 80 mg 80 mg, Oral, NIGHTLY, First dose on Wed12/01/21 at 2100, Until Discontinued, Recovery(Cath) 2099 (Due) isosorbide mononitrate (IMDUR) extended release tablet 30 mg 30 mg, Oral, DAILY, First dose on Wed12/01/21 at 1130, Until Discontinued, Do not crush or chew. 1139 (Given - Provid er: Maria Del Carmen Mohan RN) sodium chloride flush 0.9 % injection 5-40 mL 5-40 mL, IntraVENous, EVERY 12 HOURS SCHEDULED (2 times per day), First dose on Wed12/01/21 at 0900, Until Discontinued, For Line Patency: Peripheral IV = 5 [...] mL Midline or Central Line = 20 mL/lumen, Pre-Procedure(Cath) 0900 (Due)2099 (Due) PRN Medication Order 11/29/2021 11/30/2021 12/01/2021 0.9 % sodium chloride infusion IntraVENous, at 5-250 mL/hr, PRN, if patient receiving piggyback infusions and maintenance fluids are not ordered OR KVO fluids to protect IV site / prevent frequent line interruptions/ long duration, Starting on Wed12/01/21 at 1127, For piggyback infusion, administer at same rate [...] mL/hr or less into rate field of order., Recovery(Cath) acetaminophen (TYLENOL) tablet 650 mg 650 mg, Oral, EVERY 4 HOURS PRN, Starting on 12/01/21 at 1127, Until Discontinued, Pain Mild (1-3), Fever, Fever >100.5 F (38 C), Maximum dose of acetaminophen is 4000 mg from all sources in 24 hours., Recovery(Cath) Scheduled Medication Order 12/06/2022 12/07/2022 12/08/2022 amiodarone (Pacerone) tablet 200 mg 200 mg, Oral, Daily, First dose on 12/06/22 at 1045 1101 (Given - Provider: Brandi Lugo RN) 901 (Given - Provider: Silva Hammond RN) 926 (Given - Provider: Nakita Zaragoza, JESUS) amLODIPine (Norvasc) tablet 10 mg (CANCELED) 10 mg, Oral, Daily, First dose on 12/06/22 at 1045 1101 (Given - Provider: Brandi Lugo RN) 901 (Given - Provider: Silva Hammond RN) apixaban (Eliquis) tablet 5 mg 5 mg, Oral, 2 times daily, First dose on 12/06/22 at 1045, Anticoagulant 1101 (Given - Provider: Brandi Lugo RN)2009 (Given - Provider: Noe Gayle RN) 901 (Given - Provider: Silva Hammond RN)2003 (Given - Provider: Audelia Wilcox RN) 926 (Given - Provider: Nakita Zaragoza RN) aspirin chewable tablet 81 mg (CANCELED) 81 mg, Oral, Daily, First dose on 12/06/22 at 1045 1101 (Given - Provider: Brandi Lugo RN) 901 (Given - Provider: Silva Hammond RN) atorvastatin (Lipitor) tablet 80 mg (CANCELED) 80 mg, Oral, Daily, First dose on 12/06/22 at 2100 2009 (Given - Provider: Noe Gayle RN) cholecalciferol (Vitamin D-3) tablet 800 Units 800 Units, Oral, Daily, First dose on 12/06/22 at 1045 1101 (Given - Provider: Brandi Lugo RN) 901 (Given - Provider: Silva Hammond RN) 926 (Given - Provider: Nakita Zaragoza RN) clopidogrel (Plavix) tablet 75 mg 75 mg, Oral, Daily, First dose on 12/06/22 at 1045 1101 (Given - Provider: Brandi Lugo RN) 901 (Given - Provider: Silva Hammond RN) 926 (Given - Provider: Nakita Zaragoza RN) isosorbide mononitrate ER (Imdur) 24 hr tablet 60 mg 60 mg, Oral, Daily, First dose on 12/06/22 at 1045, Do not chew or crush ER tablets; may be divided in half. Due to insoluble matrix embedding, ER tablets that are scored may be split. 1101 (Given - Provider: Brandi Lugo RN) 901 (Given - Provider: Silva Hammond RN) 926 (Given - Provider: Nakita Zaragoza RN) lisinopril tablet 20 mg (CANCELED) 20 mg, Oral, Daily, First dose on 12/06/22 at 1045 1101 (Given - Provider: Brandi Lugo RN) metoprolol tartrate (Lopressor) tablet 25 mg 25 mg, Oral, 2 times daily, First dose (after last modification) on Wed12/07/22 at 2100, Hold if systolic blood pressure less than 120, heart rate less than 50 2003 (Given - Provider: Audelia Wilcox RN) 926 (Given - Provider: Nakita Zaragoza RN) metoprolol tartrate (Lopressor) tablet 50 mg (CANCELED) 50 mg, Oral, 2 times daily, First dose on 12/06/22 at 1045, Hold if systolic blood pressure less than 100, heart rate less than 50 1101 (Given - Provider: Brandi Lugo RN)2009 (Given - Provider: Noe Gayle RN) 901 (Given - Provider: Silva Hammond, JESUS) minoxidil (Loniten) tablet 5 mg 5 mg, Oral, 2 times daily, First dose on 12/06/22 at 1045 1101 (Given - Provider: Brandi Lugo RN)2009 (Given - Provider: Noe Gayle RN) 901 (Given - Provider: Silva Hammond RN)2003 (Given - Provider: Audelia Wilcox RN) 927 (Given - Provider: Nakita Zaragoza RN) rosuvastatin (Crestor) tablet 40 mg 40 mg, Oral, Nightly, First dose on 12/07/22 at 2100 2003 (Given - Provider: Audelia Wilcox RN) sodium chloride 0.9% (NS) flush 5-40 mL 5-40 mL, IntraVENous, Every 12 hours, First dose on 12/06/22 at 1045, For Line Patency: Peripheral IV = 5 [...] Midline or Central Line = 20 mL/lumen 1057 (Given - Provider: Brandi Lugo RN)2012 (Given - Provider: Noe Gayle RN) 0904 (Given - Provider: Silva Hammond RN)2005 (Given - Provider: Audelia Wilcox RN) 0930 (Given - Provider: Nakita Zaragoza RN) spironolactone (Aldactone) tablet 25 mg 25 mg, Oral, 2 times daily, First dose on 12/06/22 at 1045 1045 (Given - Provider: Brandi Lugo RN - Comment: barcode ripped)2009 (Given - Provider: Noe Gayle RN) 0819 (Held by provider - Provider: Manuel Edgar MD - Reason: Other)0900 (Dose Auto Held - Provider: Manuel Edgar MD)1644 (Unheld by provider - Provider: Manuel Edgar MD)2003 (Given - Provider: Audelia Wilcox RN) 0927 (Given - Provider: Nakita Zaragoza RN) torsemide (Demadex) tablet 10 mg (CANCELED) 10 mg, Oral, Daily, First dose on 12/06/22 at 1045 1101 (Given - Provider: Brandi Lugo RN) 0819 (Held by provider - Provider: Manuel Edgar MD - Reason: Other)0900 (Dose Auto Held - Provider: Manuel Edgar MD)1644 (Unheld by provider - Provider: Manuel Edgar MD) torsemide (Demadex) tablet 20 mg 20 mg, Oral, Daily, First dose (after last modification) on Wed12/08/22 at 0900, Hold if renal function is worse. 0927 (Given - Provider: Nakita Zaragoza, JESUS) PRN Medication Order 12/06/2022 12/07/2022 12/08/2022 acetaminophen (Tylenol) suppository 650 mg(Linked Group 1) 650 mg, Rectal, Every 6 hours PRN, mild pain (1-3), fever, For temp greater than 100.4 F (38 C), Starting on 12/06/22 at 1032, Administer if oral route cannot be used. Maximum dose of acetaminophen is 4000 mg from all sources in 24 hours. 175 (See Alternative - Provider: Brandi Lugo RN) acetaminophen (Tylenol) tablet 650 mg(Linked Group 1) 650 mg, Oral, Every 6 hours PRN, mild pain (1-3), fever, For temp greater than 100.4 F (38 C), Starting on 12/06/22 at 1032, Maximum dose of acetaminophen is 4000 mg from all sources in 24 hours. 175 (Given - Provider: Brandi Lugo RN) benzonatate (Tessalon) capsule 100 mg 100 mg, Oral, 3 times daily PRN, cough, Starting on 12/06/22 at 1105, Do not crush or chew. 1322 (Given - Provider: Brandi Lugo RN)2011 (Given - Provider: Noe Gayle RN) 2003 (Given - Provider: Audelia Wilcox RN) ipratropium-albuterol (Duo-Neb) 0.5-2.5 mg/3 mL nebulizer solution 3 mL 3 mL, Nebulization, Every 4 hours PRN, wheezing, Starting on 12/07/22 at 0818 nitroglycerin (Nitrostat) SL tablet 0.4 mg 0.4 mg, SubLINGual, Every 5 min PRN, chest pain, Starting on 12/06/22 at 1033, May administer up to 3 doses per episode. polyethylene glycol (PEG) 3350 (Miralax) packet 17 g 17 g, Oral, Daily PRN, constipation, Starting on 12/06/22 at 1032, 1st line for treatment of constipation - give scheduled if no bowel movement in past 24 hours. sodium chloride 0.9 % infusion 5-250 mL/hr, IntraVENous, PRN, if patient receiving piggyback infusions and maintenance fluids are not ordered OR KVO fluids to protect IV site / prevent frequent line interruptions / long duration, Starting on 12/06/22 at 1032, For piggyback infusion, administer at [...] 0841, Intraprocedure 0841 (Given - Provid er: Zoie Gonzales MD) lidocaine (Xylocaine) 1 % injection [...] (Given - Provid er: Gabino Louie DO) Scheduled Medication Order 09/13/2024 09/14/2024 09/15/2024 amiodarone (Pacerone) tablet 200 mg 200 mg, Oral, Daily, First dose on Wed09/15/24 at 0900 0816 (Given - Provider: Gia Mcmillan RN) amLODIPine (Norvasc) tablet 5 mg 5 mg, Oral, 2 times daily, First dose on Wed09/14/24 at 2100 2137 (Given - Provider: Abraham Jenkins RN) 0816 (Given - Provider: Gia Mcmillan, JESUS) apixaban (Eliquis) tablet 5 mg 5 mg, Oral, 2 times daily, First dose on Wed09/15/24 at 0900, Anticoagulant 0816 (Given - Provider: Gia Begue, RN) cholecalciferol (Vitamin D-3) tablet 1,000 Units 1,000 Units, Oral, Daily, First dose on Wed09/14/24 at 1615 1635 (Given - Provider: Gai Mcmillan RN) 0816 (Given - Provider: Gia Mcmillan RN) clopidogrel (Plavix) tablet 300 mg (COMPLETED)(Linked Group 1) 300 mg, Oral, Once, On Wed09/14/24 at 1500, For 1 dose 1422 (Given - Provider: Chrissy Rivas RN) clopidogrel (Plavix) tablet 75 mg(Linked Group 1) 75 mg, Oral, Daily, First dose on Wed09/15/24 at 0900, For 365 days 0816 (Given - Provider: Gia Mcmillan RN) isosorbide mononitrate ER (Imdur) 24 hr tablet 120 mg 120 mg, Oral, Daily, First dose on Wed09/14/24 at 1645, Do not chew or crush ER tablets; may be divided in half. Due to insoluble matrix embedding, ER tablets that are scored may be split. 163 (Given - Provider: Gia Mcmillan RN) 0817 (Given - Provider: Gia Mcmillan, JESUS) metoprolol tartrate (Lopressor) tablet 50 mg 50 mg, Oral, 2 times daily, First dose on Wed09/14/24 at 2100, Hold for HR < 60, BP < 100 2099 (Not Given - Provider: Abraham Jenkins RN - Reason: Contraindicated - Comment: HR 57) 0816 (Given - Provider: Gia Mcmillan, JESUS) prochlorperazine (Compazine) injection 5 mg (COMPLETED) 5 mg, IntraVENous, Once, On Wed09/14/24 at 1845, For 1 dose, Give if unable to tolerate po. 2137 (Given - Provider: Abraham Jenkins, JESUS) ranolazine (Ranexa) 12 hr tablet 500 mg 500 mg, Oral, 2 times daily, First dose on Wed09/14/24 at 2100, Do not crush, chew, or split. 2136 (Given - Provider: Abraham Jenkins, JESUS) 0817 (Given - Provider: Gia Mcmillan, JESUS) rosuvastatin (Crestor) tablet 40 mg 40 mg, Oral, Daily, First dose on Wed25 at 1615 1635 (Given - Provider: Gia Mcmillan, RN) 0816 (Given - Provider: Gia Mcmillan, RN) spironolactone (Aldactone) tablet 25 mg 25 mg, Oral, 2 times daily, First dose on Wed09/15/24 at 0900 0816 (Given - Provider: Gia Mcmillan, RN) torsemide (Demadex) tablet 20 mg 20 mg, Oral, Daily, First dose (after last modification) on Wed09/15/24 at 0900 0910 (Given - Provider: Gia Mcmillan, RN) Continuous Medication Order 09/13/2024 09/14/2024 09/15/2024 sodium chloride 0.9 % infusion () 300 mL/hr, IntraVENous, Administer over 1 Hours, Continuous, Starting on Nicci 09/14/24 at 0915, For 1 hour, Preprocedure, Administer for 1 hour at calculated rate then reduce to KVO if procedure is delayed 0931 (New Bag - Provider: Fide Dejesus RN)1018 (Stopped - Provider: Fide Dejesus RN) sodium chloride 0.9 % infusion () 125 mL/hr, IntraVENous, Continuous, Starting on Nicci 09/14/24 at 1430, For 6 hours, Recovery & On Unit 1415 (New Bag - Provider: Chrissy Rivas RN)1635 (New Bag - Provider: Gia Mcmillan, JESUS) PRN Medication Order 09/13/2024 09/14/2024 09/15/2024 acetaminophen (Tylenol) tablet 650 mg 650 mg, Oral, Every 6 hours PRN, mild pain (1-3), moderate pain (4-6), Starting on Nicci 09/14/24 at 1507, Maximum dose of acetaminophen is 4000 mg from all sources in 24 hours. 1545 (Given - Provider: Chrissy Rivas RN) aspirin chewable tablet (CANCELED) As needed, Starting on Nicci 09/14/24 at 1256, Intraprocedure 1256 (Given - Provider: Kelsey Richardson RN) fentaNYL (Sublimaze) injection (CANCELED) IntraVENous, As needed, Starting on Nicci 09/14/24 at 1245, Intraprocedure 1245 (Given - Provider: Kelsey Richardson, RN)1337 (Given - Provider: Dwayne Perkins, RN) heparin injection (CANCELED) IntraVENous, As needed, Starting on Nicci 09/14/24 at 1247, Intraprocedure 1247 (Given - Provider: Kelsey Richardson, RN)1259 (Given - Provider: Kelsey Richardson, RN)1344 (Given - Provider: Dwayne Perkins, RN) iopamidol (Isovue-300) 61 % injection (CANCELED) As needed, Starting on Nicci 09/14/24 at 1352, Intraprocedure 1352 (Given - Provider: Marycruz Franks MD) lidocaine (Xylocaine) 1 % injection (CANCELED) As needed, Starting on Nicci 09/14/24 at 1245, Intraprocedure 1245 (Given - Provider: Marycruz Franks MD) midazolam (Versed) injection (CANCELED) IntraVENous, As needed, Starting on Nicci 09/14/24 at 1245, Intraprocedure 1245 (Given - Provider: Kelsey Richardson, JESUS) nitroglycerin (Nitrostat) SL tablet 0.4 mg 0.4 mg, SubLINGual, Every 5 min PRN, chest pain, Starting on Nicci 09/14/24 at 1559, May administer up to 3 doses per episode. 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 Marino Suarez MD Family Provider Active No Primary Care Physician Primary Care Provider Active Team Status: Inactive Member Role Status Dates Dr. Vinayak Ontiveros MD Primary Care Provider, Referring Provider Active Chrissy Flores CONDUIT INSTALLER, CONDUIT INSTALLER-C Attending Provider Active Team Status: Inactive Member Role Status Dates Dr. Vinayak Ontiveros MD Primary Care Provider, Referring Provider Active Dr. Dwayne Bess MD Attending Provider Active Team Status: Inactive Member Role Status Dates Dr. Vinayak Ontiveros MD Primary Care Provider, Referring Provider Active Surgery Nurse Attending Provider Active Team Status: Inactive Member Role Status Dates Dr. Dwayne Bess MD Attending Provider Active Self Referred Referring Provider Active No Primary Care Physician Primary Care Provider Active Team Status: Active Member Role Status Dates Dr. James Cornelius DO Admit Provider , Referring Provider, Other Provider Active No Primary Care Physician Primary Care Provider Active Dr. Cooper Hayes MD Other Provider Active Dr. Xiao Medina MD Attending Provider, Other Provid er Active Dr. Cooper Ward DO Other Provider Active Team Status: Inactive Member Role Status Dates Dr. James Cornelius DO Admit Provider , Attending Provider, Referring Provider Active No Primary Care Physician Primary Care Provider Active Dr. Cooper Hayes MD Other Provider Active Dr. Xiao Medina MD Other Provider Active Dr. Cooper Ward DO Other Provider Active Team Status: Active Member Role Status Dates No Primary Care Physician Primary Care Provider Active Dr. Alexys Campos MD Attending Provider Active Dr. James Cornelius DO Referring Provider Active Team Status: Inactive Member Role Status Dates No Primary Care Physician Primary Care Provider Active Dr. Finn Ferrell MD Attending Provider Active Team Status: Active Member Role Status Dates No Primary Care Physician Primary Care Provider Active Dr. Finn Ferrell MD Attending Provider, Referring Provider Active Stem[employer] Relationship Specialty Start Date End Date Finn Ferrell MD [address] [facility] [address] [place] [phone] PCP - General Family Medicine 09/28/22 Team Status: Inactive Member Role Status Dates No Primary Care Physician Primary Care Provider Active Dr. Finn Ferrell MD Attending Provider, Referring Provider Active Team Status: Active Member Role Status Dates No Primary Care Physician Primary Care Provider Active BI SHOOK Attending Provider, Referring Provid er Active [employer]em[employer] Relationship Specialty Start Date End Date Finn Ferrell MD [address] [facility] [address] [place] [phone] PCP - General Family Medicine 09/28/22 Team Status: Active Member Role Status Dates Dr. Marino Suarez MD Family Provider Active Dr. Finn Ferrell MD Primary Care Provider Active Team Status: Inactive Member Role Status Dates No Primary Care Physician Referring Provider Active Dr. Dwayne Bess MD Attending Provider Active Dr. Finn Ferrell MD Primary Care Provider Active Team Status: Inactive Member Role Status Dates No Primary Care Physician Primary Care Provider Active BI HOLGUIN Attending Provider Active Team Status: Inactive Member Role Status Dates BI BERNAL Attending Provider Active Dr. Finn Ferrell MD Primary Care Provider Active Team Status: Active Member Role Status Dates Dr. Finn Ferrell MD Primary Care Provider Active BI BERNAL Attending Provider, Referring Provider Active Team Status: Inactive Member Role Status Dates Dr. Finn Ferrell MD Primary Care Provider Active BI BERNAL Attending Provider, Referring Provider Active Stemmer Machine Relationship Specialty Start Date End Date Finn Ferrell MD [address] [facility] [address] [place] [phone] PCP - General Family Medicine 09/28/22 Stemmer Machine Relationship Specialty Start Date End Date Finn Ferrell MD [address] [place] [address] PCP - General Family Medicine 09/28/22 Team Status: Inactive Member Role Status Dates Dr. Finn Ferrell MD Primary Care Provider Active Adrianna Royal MD Attending Provider Active [employer] Relationship Specialty Start Date End Date Finn Ferrell MD [address] [place] [address] PCP - General Family Medicine 09/28/22 Stemmer Machine Relationship Specialty Start Date End Date Finn Ferrell MD [address] [place] [address] PCP - General Family Medicine 09/28/22 Team Status: Active Member Role Status Dates Dr. Finn Ferrell MD Primary Care Provider Active Dr. Kraig Bautista DO Emergency Provider Active Dr. Henrietta Quinonez MD Attending Provider Active Team Status: Inactive Member Role Status Dates Dr. Finn Ferrell MD Primary Care Provider Active Dr. Kraig Bautista , Emergency Provider Active [employer] Machine Relationship Specialty Start Date End Date Finn Ferrell MD [address] [place] [address] PCP - General Family Medicine 09/28/22 Stemmer Machine Relationship Specialty Start Date End Date Finn Ferrell MD [address] [place] [address] PCP - General Family Medicine 09/28/22 Stemmer Machine Relationship Specialty Start Date End Date Finn Ferrell MD [address] [place] [address] PCP - General Family Medicine 09/28/22 Team Status: Inactive Member Role Status Dates Dr. Finn Ferrell MD Primary Care Provider Active Dr. Kraig Bautista DO Attending Provider, Emergency P shruthi Active Team Status: Inactive Member Role Status Dates Dr. Finn Ferrell MD Primary Care Provider, Attend ing Provider Active Team Status: Inactive Member Role Status Dates No Primary Care Physician Primary Care Provider Active BI BERNAL Attending Provider, Referring Provider Active Team Status: Inactive Member Role Status Dates Dr. Finn Ferrell MD Primary Care Provider Active Dr. George Pond DO Emergency Provider Active Stemmer Machine Relationship Specialty Start Date End Date Finn Ferrell MD [address] [place] [address] PCP - General Family Medicine 09/28/22 Stemmer Machine Relationship Specialty Start Date End Date Finn Ferrell MD [address] [place] [address] PCP - General Family Medicine 09/28/22 Stemmer Machine Relationship Specialty Start Date End Date Finn Ferrell MD [address] [place] [address] PCP - General Family Medicine 09/28/22 Team Status: Inactive Member Role Status Dates Dr. Finn Ferrell MD Primary Care Provider Active DORA HOUGH Attending Provider, Referring Provide r Active Team Status: Inactive Member Role Status Dates Dr. Finn Ferrell MD Primary Care Provider Active Dr. George Pond DO Attending Provider, Emergency Pr ovider Active Stemmer Machine Relationship Specialty Start Date End Date Finn Ferrell MD [address] [place] [address] PCP - General Family Medicine 09/28/22 Team Status: Inactive Member Role Status Dates Dr. Finn Ferrell MD Primary Care Pr ovider, Attending Provider, Referring Provider Active Stemmer Machine Relationship Specialty Start Date End Date Finn Ferrell MD [address] [place] [address] PCP - General Family Medicine 09/28/22 Stemmer Machine Relationship Specialty Start Date End Date Finn Ferrell MD [address] [place] [address] PCP - General Family Medicine 09/28/22 Stemmer Machine Relationship Specialty Start Date End Date Finn Ferrell MD [address] [place] [address] PCP - General Family Medicine 09/28/22 [employer]emmer Machine Relationship Specialty Start Date End Date Finn Ferrell MD [address] [place] [address] PCP - General Family Medicine 09/28/22 [employer]emmer Machine Relationship Specialty Start Date End Date Finn Ferrell MD [address] [place] [address] PCP - General Family Medicine 09/28/22 Team Status: Active Member Role Status Dates Dr. Finn Ferrell MD Primary Care Provider Active VINAY DAY Attending Provider Active Team Status: Active Member Role Status Dates Dr. Finn Ferrell MD Primary Care Provider Active NEGAR URBAN Attending Provider Active Team Status: Inactive Member Role Status Dates Dr. Finn Ferrell MD Primary Care Provider Active NEGAR URBAN Attending Provider, Referring Provide r Active [employer]mer [employer] Relationship Specialty Start Date End Date Finn Ferrell MD [address] [place] [phone] PCP - General Family Medicine 09/28/22 [employer]emmer Machine Relationship Specialty Start Date End Date Finn Ferrell MD [address] [place] [address] PCP - General Family Medicine 09/28/22 [employer]emmer Machine Relationship Specialty Start Date End Date [facility] Ferrell [facility] [address] [facility] [address] [place] [phone] PCP - General Family Medicine 09/28/22 Team Status: Inactive Member Role Status Dates Dr. Finn Ferrell MD Primary Care Provider, Referr ing Provider Active Dr. Dwayne Bess MD Attending Provider Active Team Status: Active Member Role Status Dates Dr. Finn Ferrell MD Primary Care Provider, Referr ing Provider Active Dr. Dwayne Bess MD Attending Provider, Other Prov ider Active Team Status: Inactive Member Role Status Dates Dr. Finn Ferrell MD Primary Care Provider Active VINAY DAY Attending Provider Active [employer] Relationship Specialty Start Date End Date Finn Ferrell MD [address] [place] [phone] PCP - General Family Medicine 09/28/22 Team Status: Inactive Member Role Status Dates Dr. Finn Ferrell MD Primary Care Provider Active Dr. Reynaldo Gaviria DO Emergency Provider Active Team Status: Inactive Member Role Status Dates Dr. Finn Ferrell MD Primary Care Provider, Referr ing Provider Active Dr. Gibran Reno MD Attending Provider Active [employer] Relationship Specialty Start Date End Date Finn Ferrell MD [address] [place] [phone] PCP - General Family Medicine 09/28/22 Team Status: Inactive Member Role Status Dates Dr. Finn Ferrell MD Primary Care Provider Active Dr. Dwayne Bess MD Attending Provider, Referring Provider Active Team Status: Inactive Member Role Status Dates Dr. Finn Ferrell MD Primary Care Provider Active Dr. Reynaldo Gaviria DO Attending Provider, Emergency Provider Active Team Status: Active Member Role Status Dates Dr. Finn Ferrell MD Primary Care Provider, Attend ing Provider Active [employer] Relationship Specialty Start Date End Date Finn Ferrell MD [address] [place] [phone] PCP - General Family Medicine 09/28/22 [employer]emmer Machine Relationship Specialty Start Date End Date Finn Ferrell MD [address] [place] [phone] PCP - General Family Medicine 09/28/22 Stemmer Machine Relationship Specialty Start Date End Date Finn Ferrell MD [address] [place] [address] PCP - General Family Medicine 09/28/22 Stemmer Machine Relationship Specialty Start Date End Date Finn Ferrell MD [address] [place] [phone] PCP - General Family Medicine 09/28/22 Stemmer Machine Relationship Specialty Start Date End Date Vinayak Ontiveros [address] [place] [phone] PCP - General 03/20/21 [employer]emmer Machine Relationship Specialty Start Date End Date Finn Ferrell MD [address] [place] [phone] PCP - General Family Medicine 09/28/22 Stemmer Machine Relationship Specialty Start Date End Date Finn Ferrell MD [address] [place] [address] PCP - General Family Medicine 09/28/22 [employer]mer Machine Relationship Specialty Start Date End Date Finn Ferrell MD [address] [place] [address] PCP - General Family Medicine 09/28/22 [employer]emmer Machine Relationship Specialty Start Date End Date Finn Ferrell MD [address] [place] [address] PCP - General Family Medicine 09/28/22 [employer]mer Machine Relationship Specialty Start Date End Date Finn Ferrell MD [address] [place] [address] PCP - General Family Medicine 09/28/22 [employer]mer Machine Relationship Specialty Start Date End Date Finn Ferrell MD [address] [place] [address] PCP - General Family Medicine 09/28/22 Team Status: Inactive Member Role Status Dates Dr. Finn Ferrell MD Primary Care Provider Active Start: June 20, 2024 End: June 20, 2024 FILIPE GREGOROI Attending Provider Active Start : June 20, 2024 End: June 20, 2024 FILIPE GREGORIO Referring Provider Active Start : June 20, 2024 End: June 20, 2024 Team Status: Active Member Role Status Dates Dr. Finn Ferrell MD Primary Care Provider Active Start: June 20, 2024 End: June 20, 2024 Dr. Juan Sams MD Attending Provider Activ e Start: June 20, 2024 End: June 20, 2024 [email or web address] Referring Provider Active Start : June 20, 2024 End: June 20, 2024 Team Status: Inactive Member Role Status Dates Dr. Finn Ferrell MD Primary Care Provider Active Start: August 31, 2024 End: August 31, 2024 Dr. Finn Ferrell MD Attending Provider Active Start: August 31, 2024 End: August 31, 2024 Dr. Finn Ferrell MD Referring Provider Active Start: August 31, 2024 End: August 31, 2024 [employer]mer Machine Relationship Specialty Start Date End Date Finn Ferrell MD [address] [place] [address] PCP - General Family Medicine 09/28/22 St[employer]mer Machine Relationship Specialty Start Date End Date Finn Ferrell MD [address] [place] [address] PCP - General Family Medicine 09/28/22 [employer]emmer Machine Relationship Specialty Start Date End Date Finn Ferrell MD [address] [place] [address] PCP - General Family Medicine 09/28/22 Stemmer Machine Relationship Specialty Start Date End Date Finn Ferrell MD [address] [place] [address] PCP - General Family Medicine 09/28/22 Bernice Zarate, JESUS Registered Nurse S[employer]er Machine Operator Manager 09/18/24 [employer]mer Machine Relationship Specialty Start Date End Date Finn Ferrell MD [address] [place] [address] PCP - General Family Medicine 09/28/22 Bernice Zarate, RN Registered Nurse [employer]er Machine Operator Manager 09/18/24 Stemmer Machine Relationship Specialty Start Date End Date Finn Ferrell MD [address] [place] [address] PCP - General Family Medicine 09/28/22 Bernice Zarate, RN Registered Nurse S[employer]er Machine Operator Manager 09/18/24 Stemmer Machine Relationship Specialty Start Date End Date Finn Ferrell MD [address] [place] [address] PCP - General Family Medicine 09/28/22 Bernice Zarate, RN Registered Nurse Splicer Machine Operator Manager 09/18/24 Stemmer Machine Relationship Specialty Start Date End Date Finn Ferrell MD [address] [place] [address] PCP - General Family Medicine 09/28/22 Bernice Zarate RN Registered Nurse Splicer Machine Operator Manager 09/18/24 [employer]mer Machine Relationship Specialty Start Date End Date Finn Ferrell MD [address] [place] [address] PCP - General Family Medicine 09/28/22 Bernice Zarate RN Registered Nurse Splicer Machine Operator Manager 09/18/24 Stemmer Machine Relationship Specialty Start Date End Date Finn Ferrell MD [address] [place] [address] PCP - General Family Medicine 09/28/22 Bernice Zarate, RN Registered Nurse Splicer Machine Operator Manager 09/18/24 Stemmer Machine Relationship Specialty Start Date End Date Finn Ferrell MD [address] [place] [phone] PCP - General Family Medicine 09/28/22 Benrice Zarate, RN Registered Nurse Splicer Machine Operator Manager 09/18/24 Goals (unrecognized section and content) Goals may be documented in a n alternate sectionGoals may be documented in an alternate sectionGoals may be documented in an alternate sectionGoals may be documented in an alternate sectionGoals may be documented in an alternate sectionGoals may be documented in an alternate sectionGoals may be documented in an alternate sectionGoals may be documented in an alternate sectionGoals may be documented in an alternate sectionGoals may be documented in an alternate section FOR RECORDS PERTAINING TO PATIENTS WHO ARE [...] BE BASED ON THE PRIMARY CLINICAL RECORDS. [facility] provides no warranty or guarantee of the accuracy or completeness of information in this document.
[2024-11-15] MEDS: 0.9% Normal Saline (500mL Bag) 500 ML 999 ML IV ×2 (00:36→01:57)
[2024-11-15] MEDS: HYDROcodone Bitartrate/Apap 5/325 Tablet PO (00:36)
[2024-11-15 00:45] LABS: Absolute Lymphocyte Count 2.11 X10^3/uL (0.83-4.51); Absolute Neutrophil Count 11.8 X10^3/uL (2.0-7.7); Basophil# 0.08 X10^3/uL; Basophil% 0.5 % (0-1); Eosinophil# 0.09 X10^3/uL; Eosinophils% 0.6 % (0-5); Hematocrit 43.4 % (40-54); Hemoglobin 14.3 g/dL (13.0-16.5); Lymphocyte # 2.11 X10^3/ul (0.83-4.51); Lymphocyte % 13.8 % (19-41); Mean Corp Hgb Conc 32.9 g/dL (32-36); Mean Corpuscular Hgb 30.7 pg (27.0-32.0); Mean Corpuscular Volume 93.1 fL (80-94); Mean Platelet Vol. 9.6 fl (6.2-12.0); Monocyte# 1.07 X10^3/uL; NRBC Flagged by Analyzer 0 % (0-5); Neutrophil # 11.79 X10^3/uL (2.7-7.7); Neutrophil % 77.4 % (47-70); Platelet Count 279 K/mm3 (150-450); RBC Distribution Width CV 14.9 % (11.6-14.6); RBC Distribution Width SD 49.6 fl (35.1-43.9); Red Blood Count 4.66 M/mm3 (4.6-6.2); White Blood Count 15.2 K/mm3 (4.4-11.0)
--- NOTE | 2024-11-15 00:50 | RAD_ITS ---
PROCEDURE: FOOT MIN 3 VIEWS 11/15/2024 REASON FOR EXAM: INJURY/PAIN TECHNIQUE: FOOT MIN 3 VIEWS COMPARISON: None FINDINGS: Normal talus, calcaneus, and tarsal bones. Normal visualized subtalar, talonavicular, calcaneocuboid, tarsal and tarsometatarsal articulations. Normal metatarsi. Normal metatarsophalangeal joint of the great toe. Normal tibial and fibular sesamoid bones. Normal interphalangeal joint of the great toe. Normal phalanges of the great toe. Normal second through fifth metatarsophalangeal joints. Normal interphalangeal joints of the lesser toes. Normal phalanges of the lesser toes. RAD/Foot min 3 Views IMPRESSION: Normal x-ray examination of the foot. [facility]
[2024-11-15 01:28] LABS: Uric Acid 9.4 mg/dL (3.5-7.2)
[2024-11-15 01:29] LABS: Anion Gap 15 (5-15); BUN 33 mg/dL (4-19); BUN/Creat Ratio 13.7 RATIO (10-20); Calcium,Total 10.1 mg/dL (7.6-11.0); Carbon Dioxide 20.3 mmol/L (21.0-32.0); Chloride 102 mmol/L (98-108); Creatinine, Serum 2.38 mg/dL (0.70-1.20); EST Glomerular Filtration Rate 29 (>60); Estimated Creatinine Clearance 43.46 ml/min (50-250); Glucose 122 mg/dL (70-99); Potassium 5.4 mmol/L (3.3-5.1); Sodium Level 138 mmol/L (133-145)
[2024-11-15 03:06] VITALS: BP 116/71; PULSE 53; RESP 16; TEMP 36.8; O2SAT 95
== END 2024-11-15 03:16 | disposition home or self-care (01) ==
PROVIDERS: Emergency Provider Emergency Medicine; PCP Family Medicine; Visit Provider Emergency Medicine
DX: M10.072 Idiopathic gout, left ankle and foot (principal); J44.9 Chronic obstructive pulmonary disease, unspecified; I48.91 Unspecified atrial fibrillation; I25.10 Atherosclerotic heart disease of native coronary artery without angina pectoris; I12.9 Hypertensive chronic kidney disease with stage 1 through stage 4 chronic kidney disease, or unspecified chronic kidney disease; N18.9 Chronic kidney disease, unspecified; E78.00 Pure hypercholesterolemia, unspecified; Z95.5 Presence of coronary angioplasty implant and graft; Z79.01 Long term (current) use of anticoagulants; Z79.02 Long term (current) use of antithrombotics/antiplatelets; Z79.899 Other long term (current) drug therapy
CPT/HCPCS: 73630; 80048; 84550; 85025; 96360; 96361; 99282; A4216

== ENCOUNTER → 2024-11-15 | Outpatient (CLI) | payer MEDICARE, OTHER, SELFPAY ==
[2024-11-15 17:48] LABS: Hematocrit 40.2 % (40-54); Hemoglobin 13.1 g/dL (13.0-16.5); Mean Corp Hgb Conc 32.6 g/dL (32-36); Mean Corpuscular Hgb 30.5 pg (27.0-32.0); Mean Corpuscular Volume 93.5 fL (80-94); Mean Platelet Vol. 9.9 fl (6.2-12.0); Platelet Count 271 K/mm3 (150-450); RBC Distribution Width CV 14.5 % (11.6-14.6); RBC Distribution Width SD 50.1 fl (35.1-43.9); White Blood Count 10.3 K/mm3 (4.4-11.0)
[2024-11-15 18:20] LABS: ALB/GLOB Ratio 1.3 RATIO (0.9-2.4); AST(SGOT) 23 U/L (<=37); Alanine Aminotransfer ALT/SGPT 36 U/L (<=46); Albumin, Serum 4.2 g/dL (3.4-4.8); Alkaline Phosphatase 102 U/L (40-129); Anion Gap 13 (5-15); BUN 33 mg/dL (4-19); BUN/Creat Ratio 15.5 RATIO (10-20); Calcium,Total 9.7 mg/dL (7.6-11.0); Carbon Dioxide 21.7 mmol/L (21.0-32.0); Chloride 101 mmol/L (98-108); Creatinine, Serum 2.13 mg/dL (0.70-1.20); EST Glomerular Filtration Rate 33 (>60); Globulin 3.2 g/dL (2.2-4.2); Glucose 92 mg/dL (70-99); Potassium 4.6 mmol/L (3.3-5.1); Protein, Total 7.4 g/dL (5.9-8.4); Sodium Level 136 mmol/L (133-145); Total Bilirubin 1.28 mg/dL (0.00-1.30)
== END | disposition home or self-care (01) ==
LOC: MFPLAB 15:41
PROVIDERS: PCP Family Medicine; Referring Provider Family Medicine; Visit Provider Family Medicine
DX: M10.9 Gout, unspecified (principal)
CPT/HCPCS: 36415; 80053; 85027

== ENCOUNTER → 2025-01-15 | Outpatient (CLI) | payer MEDICARE, OTHER, SELFPAY ==
[2025-01-15 10:58] LABS: Hematocrit 39.2 % (40-54); Hemoglobin 12.7 g/dL (13.0-16.5); Immature Granulocytes Count 0.070 X10^3/uL (0.0-0.0); Mean Corp Hgb Conc 32.4 g/dL (32-36); Mean Corpuscular Volume 93.8 fL (80-94); Mean Platelet Vol. 9.6 fl (6.2-12.0); NRBC Flagged by Analyzer 0 % (0-5); Platelet Count 257 K/mm3 (150-450); RBC Distribution Width CV 14.1 % (11.6-14.6); RBC Distribution Width SD 48.0 fl (35.1-43.9); Red Blood Count 4.18 M/mm3 (4.6-6.2); White Blood Count 8.8 K/mm3 (4.4-11.0)
[2025-01-15 11:17] LABS: Creatinine, Urine (random) 17.90 mg/dL (39.00-259.00); Protein, Urine (Random) < 6.0 mg/dL (0.0-12.0); Protein:Creat Ratio 126 mg/g CRE (0-200)
[2025-01-15 11:32] LABS: PTHIN 55 pg/mL (11-61)
[2025-01-15 11:42] LABS: AST(SGOT) 19 U/L (<=37); Alanine Aminotransfer ALT/SGPT 29 U/L (<=46); Albumin, Serum 4.3 g/dL (3.4-4.8); Alkaline Phosphatase 94 U/L (40-129); Anion Gap 13 (5-15); BUN 21 mg/dL (4-19); BUN/Creat Ratio 13.0 RATIO (10-20); Calcium,Total 9.5 mg/dL (7.6-11.0); Carbon Dioxide 24.0 mmol/L (21.0-32.0); Chloride 104 mmol/L (98-108); Cholesterol 141 mg/dL (<=200); Globulin 2.9 g/dL (2.2-4.2); Glucose 122 mg/dL (70-99); Low Density Lipoprotein Calc. 58 mg/dL; Magnesium 2.2 mg/dL (1.5-2.2); Potassium 4.3 mmol/L (3.3-5.1); Triglycerides 167 mg/dL; Uric Acid 7.9 mg/dL (3.5-7.2); Very Low Density Lipoprotein 33 mg/dL (5-40); Vitamin D,25 Hydroxy 42.1 ng/mL (30-100); cholesterol:hdl ratio screen 2.84
[2025-01-17 11:51] LABS: Ferritin 606 ng/mL (37-417)
[2025-01-17 12:18] LABS: Iron 114 ug/dL (65-175); Iron Binding Capacity,Total 285 ug/dL (250-450); Iron Binding Capacity,Unsat 171 ug/dL (228-428)
== END | disposition home or self-care (01) ==
LOC: MFPLAB 08:23
PROVIDERS: PCP Family Medicine; Referring Provider Family Medicine; Visit Provider Family Medicine
DX: I25.10 Atherosclerotic heart disease of native coronary artery without angina pectoris (principal); I48.0 Paroxysmal atrial fibrillation; I10 Essential (primary) hypertension; E55.9 Vitamin D deficiency, unspecified; E78.2 Mixed hyperlipidemia; D64.9 Anemia, unspecified
CPT/HCPCS: 36415; 80053; 80061; 82306; 82570; 82728; 83540; 83550; 83735; 83970; 84156; 84443; 84550; 85025

== ENCOUNTER 2025-01-19 09:41 | Outpatient (CLI) | payer MEDICARE, OTHER, SELFPAY | END 2025-01-19 23:59 | disposition home or self-care (01) | PROVIDERS: PCP Family Medicine; Referring Provider Family Medicine; Visit Provider Family Medicine | DX: R77.8 Other specified abnormalities of plasma proteins (principal) | CPT/HCPCS: 36415 ==

== ENCOUNTER → 2025-01-29 | Outpatient (CLI) | payer MEDICARE, OTHER, SELFPAY ==
--- NOTE | 2025-01-29 16:35 | US_ITS ---
PROCEDURE: THYROID 01/29/2025 REASON FOR EXAM: NODULE Follow-up examination. TECHNIQUE: Procedure Code: USTHY Modality: US Procedure: THYROID COMPARISON: Prior study dated October 05, 2023. FINDINGS: Right thyroid lobe size: 3.9 cm x 1.9 cm 1.8 cm Left thyroid lobe size: 4.1 cm x 1.7 cm x 2 cm Isthmus: 0.6 cm Background parenchymal echotexture is heterogeneous. Nodules: . Lobe: Left, Location: Midpole, Size: 1.4 cm 1.2 cm 1.3 cm, Stability: Stable Composition: Solid or almost completely solid (+2) Echogenicity: Hypoechoic (+2) Margin: Smooth (+0) Shape: Wider than tall (+0) Echogenic Foci: None (+0) TI-RADS: 4 US/Thyroid IMPRESSION: Stable examination. 1.4 cm 1.2 cm 1.3 cm nodule in the midpole of the left lob e of the thyroid. RECOMMENDATION: Based on most suspicious nodule. Nodule size = largest diameter Only evaluate nodule if =>5 mm. Growth > 20% in 2 dimensions = worsening. Follow up to 4 nodules. Recommend biopsy for no more than 2 nodules. Reading Location: [facility]
--- NOTE | 2025-01-29 16:45 | CT_ITS ---
PROCEDURE: EXTREMITY LOWER WITHOUT CONTRA 01/29/2025 REASON FOR EXAM: UNILATERAL PRIMARY OSTEOARTHRITIS,LT KNEE,THYROID TECHNIQUE: Procedure Code: CTELWO Modality: CT Procedure: KYMBERLY noncontrasted CT of the left knee, to include the hip and ankle. Coronal and Sagittal reconstruction series were provided. One or more dose reduction techniques were used (e.g., Automated exposure control, adjustment of the mA and/or kV according to patient size, use of iterative reconstruction technique). RADIATION DOSE SUMMARY: DLP: 3639.44 mGycm COMPARISON: Abdomen and pelvis CT of 07/05/2023 FINDINGS: Bones and joints: Of the visualized portion of the lower lumbar spine, again seen are prominent degenerative changes. Left sacroiliac joint again shows moderately severe degenerative change. No significant Johnston's or popliteal cyst is seen about the left knee. Advanced tricompartmental left knee degenerative changes are seen, with severe medial and patellofemoral narrowing noted. No significant left knee joint effusion is seen. A left total hip prosthesis is in place, without findings to suggest loosening or metallic fracture noted. Associated metallic artifact is seen. Mild degenerative changes are seen about the left ankle, hindfoot, and midfoot. Soft Tissues: Moderate arterial calcification is noted. CT/Extremity Lower without Contra IMPRESSION: Postsurgical and degenerative changes as described. Reading Location: [place] [address]
== END | disposition home or self-care (01) ==
LOC: CT 16:30
PROVIDERS: PCP Family Medicine; Referring Provider Specialist; Visit Provider Family Medicine
DX: M17.12 Unilateral primary osteoarthritis, left knee (principal); E04.1 Nontoxic single thyroid nodule
CPT/HCPCS: 73700; 76536

== ENCOUNTER → 2025-03-13 | Outpatient (CLI) | payer MEDICARE, OTHER, SELFPAY ==
[2025-03-13 21:04] LABS: Mucous, Urine 0 SEEN /hpf (<or=2+); Red Blood Cells-Urine 0 SEEN /hpf (0-5); Squamous Epithelial Cells - UA 0 SEEN /hpf (0-5)
--- OUTSIDE RECORDS SUMMARY | 2025-03-13 21:06 | XMS RPT_ITS | CCD ---
Author Organization [facility] [place] [facility] Care Team Providers Care Airplane Cover Maker Name Role Phone Miguel Calzada Primary Care Provider Marino Suarez Primary Care Provider Marino Suarez Primary Care Provider Vinayak Ontiveros Primary Care Provider Dr. Vinayak Ontiveros Primary Care Provider Dr. Terry Figueroa Referring Provider Dr. Terry Figueroa Other Provider FRANCE SPAIN Other Provider Dr. Irvin Kingston Attending Provider Vinayak Ontiveros Primary Care Provider Dr. Vinayak Ontiveros Primary Care Provider Dr. Vinayak Ontiveors Referring Provider Mark SMITH NP-Steven Cruz Attending Provider [phone] Dr. Finesse Vera Attending Provider [phone] Vinayak Ontiveros Primary Care Provider Dr. Vinayak Ontiveros Referring Provider KYLIE Flores NP Attending Provider [phone] Dr. Jeramie Knox Attending Provider [phone] Lc Chavez Referring Provider Dr. Finesse Vera Attending Provider [phone] Vinayak Ontiveros Primary Care Provider Dr. Vinayak Ontiveros Referring Provider Dr. Dwayne Bess Attending Provider Nurse, Surgery Attending Provider Unavailable Mark SMITH, KYLIE Cruz Attending Provider Referred, Self Referring Provider [...] Emergency Provider Dr. Henrietta Quinonez Attending Provider Care Physician, No Primary Primary Care Provider Unavailable Dr. Dwayne Bess Attending Provider Dr. Finn Ferrell Primary Care Provider Dr. Kraig Bautista Emergency Provider Dr. Henrietta Quinonez Attending Provider Dr. Finn Ferrell Primary Care Provider Dr. Finn Ferrell Referring Provider Dr. Dwayne Bess Attending Provider Dr. Dwayne Bess Other Provider Vinayak Ontiveros Primary Care Provider [phone] Dr. Finn Ferrell MD Primary Care Provider [phone] JG DENT Attending Provider JG DENT Referring Provider Latrell ALVARADO, Dr. Martinez Attending Provider JG DENT Referring Provider Unavailable Desmond ALVARADO, Dr. Finn Miller Attending Provider Desmond ALVARADO, Dr. Finn Miller Referring Provider Bernice Zarate RN Unavailable Unavailable Desmond ALVARADO, Dr. Finn Miller Primary Care Provider [phone] FRANCE SPAIN Attending Provider FRANCE SPAIN Referring Provider Dr. Cooper Francis DO Emergency Provider Dr. Cooper Francis DO Attending Provider Dr. Finn Ferrell MD Primary Care Provider Dr. Finn Ferrell MD Attending Provider Dr. Finn Ferrell MD Referring Provider OSORIO SPAIN Other Provider Carolina ALVARADO, Dr. Stewart Referring Provider [phone] Carolina ALVARADO, Dr. Stewart Other Provider Tessa LEE, Bernice Unavailable Unavailable DOMINGUEZ ORTEGA Attending Unavailable DOMINGUEZ ORTEGA Admitting Unavailable FINN FERRELL Primary Care Unavailable FRANCE SPAIN Referring Unavailable FRANCE SPAIN Attending Unavailable FINN FERRELL Primary Care Unavailable DESMOND, FINN Primary Care Unavailable FRANCE SPAIN Attending Unavailable FRANCE SPAIN Attending Unavailable FINN FERRELL Primary Care Unavailable FINN FERRELL Primary Care Unavailable FRANCE SPAIN Attending Unavailable FINN FERRELL Primary Care Unavailable DOMINGUEZ ORTEGA Attending Unavailable FRANCE SPAIN Attending Unavailable FINN FERRELL Primary Care Unavailable FRANCE SPAIN Attending Unavailable FINN FERRELL Primary Care Unavailable FRANCE SPAIN Referring Unavailable FRANCE SPAIN Attending Unavailable FINN FERRELL Primary Care Unavailable FRANCE SPAIN Attending Unavailable FRANCE SPAIN Referring Unavailable FINN FERRELL Primary Care Unavailable Finn Ferrell Primary Care Unavailable Ronald Churchill Attending Unavailable Finn Ferrell Primary Care Unavailable OLEKSANDR KING Referring Unavailable OLEKSANDR KING Attending Unavailable Finn Ferrell Primary Care Unavailable OLEKSANDR KING Referring Unavailable OLEKSANDR KING Attending Unavailable Andre Rueda Attending Unavailable Finn Ferrell Primary Care Unavailable Finn Ferrell Primary Care Unavailable Cheryl MEDICAL ART THERAPIST, Jenniffer Referring Unavailable Cheryl MEDICAL ART THERAPISTJenniffer Attending Unavailable Finn Ferrell Attending Unavailable Finn Ferrell Primary Care Unavailable Finn Ferrell Attending Unavailable Finn Ferrell Primary Care Unavailable Finn Ferrell Referring Unavailable Finn Ferrell Primary Care Unavailable Juan Sams Attending UnavailOLEKSANDR Sanabria Referring Unavailable Finn Ferrell Primary Care Unavailable Finn Ferrell Attending Unavailable Finn Ferrell Referring Unavailable Finn Ferrell Primary Care Unavailable Finn Ferrell Attending Unavailable Finn Ferrell Referring Unavailable OLEKSANDR KING Consulting Unavailable Finn Ferrell Primary Care Unavailable Finn Ferrell Referring Unavailable Finn Ferrell Attending Unavailable Finn Ferrell Primary Care Unavailable Ronald Churchill Referring Unavailable Ronald Churchill Attending Unavailable Finn Ferrell Primary Care Unavailable Finn Ferrell Attending Unavailable Finn Ferrell Referring Unavailable Finn Ferrell Primary Care Unavailable YashiraaRonald Attending Unavailable Finn Ferrell Primary Care Unavailable Terry Figueroa Referring Unavailable Terry Figueroa Consulting Unavailable Finn Ferrell Attending Unavailable Finn Ferrell Primary Care Unavailable Terry Figueroa Referring Unavailable Terry Figueroa Attending Unavailable Finn Ferrell Primary Care Unavailable Cooper Francis Attending Unavailable Finn Ferrell Primary Care Unavailable George Pond Attending Unavailable Allergies Allergy Classification Reported Allergen(s) Allergy Type Date of Onset Reaction(s) Facility Penicillins (antibiotic) (2 sources) Penicillins Drug Allergy 6 [facility] (11 sources) Penicillins Propensity to adverse reactions to drug 6 [place] (20 sources) Penicillins Allergy to substance 2 [facility] (20 sources) Penicillins Drug Intolerance 5 [facility] (1 source) Penicillins Drug allergy (disorder) 5 [facility] Repository Medications Current Medications Medication Drug Class(es) Dates Sig (Normalized) Sig (Original) acetaminophen 325 mg / HYDROcodone bitartrate 5 mg oral tablet (20 sources) Opioid Agonist Start: 04-23-2024 take 1 tablet by mouth every six hours as needed HYDROcodone-aceta minophen ([place]) 5-325 MG tablet Take 1 tablet by mouth every 6 hours as needed. 04/24/2024 Active Start: 10-30-2019 End: 11-01-2019 Hydrocodone-Acetaminophen 1 TABLET tablet Discontinued 1 {tbl} PO EVERY 6 HOURS NEEDED as needed for Pain 5 2 0 October 30, 2019 October 31, 2019 12:00am November 01, 2019 12:02am Postoperative pain Other acute postprocedural pain Start: 10-30-2019 End: 11-01-2019 take 1 tablet by mouth every six hours as needed Hydrocodone-Acetaminophen Discontinued 1 TABLET PO EVERY 6 HOURS NEEDED 5 2 October 30, 2019 October 31, 2019 11:02pm acetaminophen 325 mg / oxyCODONE hydrochloride 5 mg oral tablet (6 sources) Opioid Agonist Start: 03-27-2024 take 1 tablet by mouth every six hours as needed for pain Oxycodone-Acetaminophen (Percocet) 5-325 mg tablet Active 1 {tbl} PO EVERY 6 HOURS as needed for pain 12 3 0 March 27, 2024 Acute gout Contusion of rib Gout, unspecified Contusion of unspecified front wall of thorax, initial encounter amiodarone hydrochloride 200 mg oral tablet (20 sources) Antiarrhythmic Start: 05-20-2023 End: 12-18-2024 take 1 tablet by mouth once daily in the morning amiodarone (Pacerone) 200 MG tablet Indications: PAF (paroxysmal atrial fibrillation) ([facility]) Take 1 tablet (200 mg) by mouth daily. 90 tablet 12/25/2024 8:51 AM EDT 12/18/2024 Active Start: 04-01-2020 End: 04-07-2023 take 1 tablet by mouth once daily Amiodarone 200 MG tablet Discontinued 200 mg PO DAILY April 01, 2020 1:00am April 07, 2023 10:22am HEART Start: 10-05-2019 End: 10-05-2019 Amiodarone 200 mg [...] by mouth once daily in the evening amLODIPine (Norvasc) 5 MG tablet Indications: Primary hypertension Take 1 tablet (5 mg) by mouth once daily 180 tablet 3 01/16/2025 4:20 PM EDT 01/15/2025 Active Start: 01-27-2022 End: 12-08-2022 take 10 mg by mouth once daily 10 mg, Oral, Daily, Fir st dose on Wed12/06/22 at 1045 Start: 04-15-2021 take 1 tablet [...] 05, 2019 12:00am April 07, 2023 10:22am blood pressure Start: 08-15-2019 End: 09-08-2019 take 1 tablet [...] mouth 2 times daily. 180 tablet 3 12/25/2024 8:51 AM EDT 06/06/2024 06/06/2025 Active Start: 10-24-2019 End: 10-31-2020 take 1 tablet by mouth twice daily Apixaban 5 MG tablet Discontinued 5 mg PO TWICE A DAY October 24, 2019 12:00am October 31, 2020 2:59pm blood thinner Start: 04-11-2018 End: 09-09-2019 take 5 mg [...] tablet (20 sources) [id number] Platelet Inhibitor Start: 09-09-2021 End: 09-15-2024 take 1 tablet by mouth once daily in the morning clopidogrel (Plavix) 75 MG tablet Indications: 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 , Presence of coronary angioplasty implant and graft Take 1 tablet (75 mg) by mouth daily. 90 tablet 3 12/25/2024 8:51 AM EDT 06/06/2024 Active Start: 11-12-2020 take 1 tablet [...] 03, 2014 12:00am October 31, 2020 2:58pm anti platelet eplerenone 25 mg oral tablet (2 sources) [...] mg Tablet Discontinued 10 mg PO DAILY 30 0 October 31, 2020 12:00am December 29, 2021 [...] take 1 puff(s) by inhalation once daily cijmbefyhrn-fsuduzsqs-awyowl (TRELEGY ELLIPTA) 100-62.5-25 MCG/INH AEPB Inhale 1 puff into the lungs daily 2 each 0 10/29/2020 Active Fluticasone-Um eclidin-Vilant (TRELEGY ELLIPTA) 200-62.5-25 MCG/INH AEPB (4 sources) Start: 11-07-2020 End: 03-18-2021 take 1 puff(s) by inhalation once daily Csanactejyz-Brhzbiyor-Iyzbtl (TRELEGY ELLIPTA) 200-62.5-25 MCG/INH AEPB Indications: COPD with asthma (HCC) Inhale 1 puff into the lungs daily 3 each 3 11/07/2020 03/18/2021 Discontinued (Stop Taking at Discharge) Start: 11-07-2020 End: 03-18-2021 take 1 puff(s) by inhalation once daily Upzkoktwkku-Qumpelsgy-Qglxbm (TRELEGY ELLIPTA) 200-62.5-25 MCG/INH AEPB Indications: COPD with asthma (HCC) Inhale 1 puff into the lungs daily Lot [id number] exp 9-22 2 each 0 11/07/2020 03/18/2021 Discontinued (Stop Taking at Discharge) Start: 11-07-2020 take 1 puff(s) by inhalation once daily Luzmntavzaq-Ptsbocfts-Dyccmr (TRELEGY ELLIPTA) 200-62.5-25 MCG/INH AEPB Indications: COPD with asthma (HCC) Inhale 1 puff into the lungs daily 3 each 3 11/07/2020 Active Start: 11-07-2020 take 1 puff(s) by inhalation once daily Eldtfxoegdz-Pflaarbre-Lcxtqr (TRELEGY ELLIPTA) 200-62.5-25 MCG/INH AEPB Indications: COPD [...] 05, 2019 7:52am October 27, 2022 8:22am diuretic Start: 10-05-2019 End: 10-05-2019 Furosemide 40 mg tablet Disc ontinued NMA PO October 05, 2019 12:00am October 05, 2019 7:53am Start: 10-05-2019 End: 10-05-2019 Furosemide Discontinued EACH PO October 04, 2019 11:00pm October 05, 2019 6:53am Start: 05-26-2019 take 40 mg by mouth once daily 40 mg, Oral, DAILY, First dose on Wed09/15/19 at 0900 24 hr isosorbide mononitrate 60 mg extended release oral tablet (20 sources) Nitrate Vasodilator Start: 12-28-2024 End: 12-28-2025 take 1 tablet by mouth once daily isosorbide mononitrate ER (Imdur) 60 MG 24 hr tablet Take 1 tablet (60 mg) by mouth daily. Do not crush or chew. 12/28/2024 12/28/2025 Active Start: 09-14-2024 End: 09-15-2024 take 1 tablet by mouth once daily 120 mg, Oral, Daily, First dose on Nicci 09/14/24 at 1645, Do not chew or crush ER tablets; may be divided in half. Due to insoluble matrix embedding, ER tablets that are scored may be split. Start: 06-06-2024 End: 12-28-2024 take 2 tablets by mouth once daily isosorbide mononitrate ER (Imdur) 60 MG 24 hr tablet Indications: 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 Take 2 tablets (120 mg) by mouth daily. 180 tablet 3 08/30/2024 12/28/2024 Discontinued (Dose adjustment) Start: 02-09-2023 End: 05-22-2024 take 2 tablets by mouth once daily isosorbide mononitrate ER (Imdur) 60 MG 24 hr tablet Indications: 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 Take 2 tablets (120 mg) by mouth daily. 180 tablet 2 05/22/2024 Active Start: 07-06-2022 End: 07-07-2023 take 1 tablet by mouth once daily isosorbide mononitrate ER (Imdur) 60 MG 24 hr tablet Indications: 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 Take 1 tablet (60 mg) by [...] mouth daily 90 tablet 3 12/02/2021 Active magnesium hydroxide 80 mg/ml oral suspension (1 source) Start: 09-08-2019 magnesium hydroxide (MILK OF MAGNESIA) 400 MG/5ML suspension 30 mL 24 hr metoprolol succinate 50 mg extended release oral tablet (20 sources) beta-Adrenergic Delia Start: 09-15-2024 End: 09-15-2025 take 1 tablet by mouth once daily metoprolol succinate XL (Toprol-XL) 50 MG 24 hr tablet Take 1 tablet (50 mg) by mouth daily. Do not crush or chew. 30 tablet 11 09/15/2024 11:04 AM EDT 09/15/2024 09/15/2025 Active Start: 09-14-2024 End: 09-15-2024 take 50 mg by mouth twice daily 50 mg, Oral, 2 times d jhonatany, First dose on Wed09/14/24 at 2100, Hold for HR Start: 08-24-2024 End: 08-24-2025 take 1 tablet by mouth twice daily metoprolol tartrate (Lopressor) 50 MG tablet Take 1 tablet (50 mg) by mouth 2 times daily. 60 tablet 11 08/24/2024 09/15/2024 Discontinued (Stop taking at discharge) Start: 03-26-2024 take 1 tablet by cary th once daily Metoprolol Tartrate 25 mg tablet Active 25 mg PO DAILY March 26, 2024 12:00am Start: 05-19-2023 Metoprolol Tar trate 50 mg tablet Active 25 mg PO AT BEDTIME May 19, 2023 1:00am Start: 05-19-2023 take 25 mg by mouth at bedtime Metoprolol Tartrate Active 25 MG PO AT BEDTIME May 19, 2023 12:00am Start: 04-07-2023 take 2 tablets by mo uth once daily Metoprolol Succinate 50 mg tablet extended release 24 hr Active 25 mg PO DAILY April 07, 2023 1:00am Start: 04-07-2023 take 25 mg by mouth once daily Metoprolol Succinate Active 25 MG PO DAILY April 07, 2023 12:00am Start: 12-07-2022 End: 06-06-2025 take 1 tablet by mouth twice daily metoprolol tartrate (Lopressor) 25 MG tablet Indications: 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 Take 1 tablet (25 mg) by mouth 2 times daily. 180 tablet 3 06/06/2024 08/24/2024 Discontinued (Dose adjustment) Start: 04-01-2020 End: 12-08-2022 take 1 tablet by mouth twice daily Metoprolol Tartrate 50 MG tablet Discontinued 50 mg PO TWICE A DAY April 01, 2020 1:00am December 29, 2021 9:56am HEART Start: 09-07-2019 End: 09-07-2019 metoprolol (LOPRESSOR) 5 [...] PRN, chest pain, Starting on Wed12/06/22 at 1033 May administer up to 3 doses per episode. Start: 10-05-2019 nitroglycerin (Nitrostat) 0.4 MG SL tablet Indications: Atherosclerotic heart disease of pa[place] coronary artery without angina pectoris Place 1 [...] to 3 doses total. 100 tablet 11 12/25/2024 8:51 AM EDT 07/06/2024 07/06/2025 Active omeprazole 40 mg delayed release oral capsule (2 sources) Proton Pump Inhibitor Start: 01-28-2016 omeprazole (PRILOSEC) 40 MG delayed release capsule daily 5 01/28/2016 Active ondansetron 4 mg disintegrating oral tablet (17 sources) Serotonin-3 Receptor Antagonist Start: 07-05-2023 End: 03-26-2024 take 1 tablet by mouth every eight hours as needed ondansetron ODT (Zofran-ODT) 4 MG disintegrating tablet Take 4 mg by mouth every 8 hours as needed. 07/05/2023 Active oxyCODONE hydrochloride 5 mg oral tablet (14 sources) Opioid Agonist Start: 08-21-2022 take 10 mg by mouth every six hours as needed Oxycodone Active 10 MG PO EVERY 6 HOURS NEEDED 42 7 August 21, 2022 predniSONE 20 mg oral tablet (6 sources) Start: 04-23-2024 take 2 tablets by mouth once daily Prednisone 20 mg tablet Active 40 mg PO DAILY 10 April 23, 2024 1:00am Promethazine (1 source) [...] March 27, 2024 12:16am Start: 03-18-2023 End: 10-25-2024 take 1 tablet by mouth twice daily [...] crush, chew, or split. 180 tablet 3 12/25/2024 8:51 AM EDT 07/06/2024 07/06/2025 Active Start: 04-15-2021 take 1 tablet by cary th twice daily ranolazine (RANEXA) 500 MG extended release tablet Take 1 tablet by mouth 2 times daily 60 tablet 3 04/15/2021 Active spironolactone 25 mg oral tablet (20 sources) Aldosterone Antagonist Start: 01-16-2025 take 1 tablet by mouth once daily spironolactone (Aldactone) 25 MG tablet Indications: Primary hypertension Take 1 tablet (25 mg) by mouth daily. 01/16/2025 Active Start: 06-06-2024 End: 01-16-2025 take 1 tablet by mouth twice daily in the morning spironolactone (Aldactone) 25 MG tablet Indications: Primary hypertension Take 1 tablet (25 mg) by mouth 2 times daily. 180 tablet 3 12/25/2024 8:51 AM EDT 06/06/2024 01/16/2025 Discontinued (Dose adjustment) Start: 11-02-2022 End: 12-08-2022 take 1 tablet by mouth twice daily spironolactone (Aldactone) 25 MG tablet Take 1 tablet (25 mg) by mouth 2 times daily. 180 tablet 3 11/02/2022 Active Start: 10-27-2020 End: 04-07-2023 take 1 tablet by mouth once daily Spironolactone (Aldactone) 25 mg Tablet Discontinued 25 mg PO DAILY October 27, 2020 12:00am April 07, 2023 10:22am diuretic Start: 09-27-2019 take 1 tablet by cary th once daily spironolactone (ALDACTONE) 25 MG tablet [...] lungs daily 30 capsule 3 03/18/2021 Active torsemide 20 mg oral tablet (20 sources) Loop Diuretic Start: 01-16-2025 take 1 tablet by mouth once daily in the evening torsemide (Demadex) 20 MG tablet Indications: WATTS (dyspnea on exertion) Take 1 tablet (20 mg) by mouth daily. Take extra in evening if needd. 01/16/2025 Active Start: 07-20-2024 End: 11-30-2024 take 1 tablet by mouth twice daily torsemide (Demadex) 20 MG tablet Indications: WATTS (dyspnea on exertion) Take 1 tablet (20 mg) by mouth 2 times daily. 180 tablet 3 07/20/2024 11/30/2024 Discontinued (Reorder) Start: 12-08-2022 End: 09-15-2024 take 1 tablet by mouth once daily Torsemide 20 mg tablet Active 20 mg PO DAILY April 07, 2023 1:00am Start: 12-06-2022 End: 12-07-2022 take 10 mg by mouth once daily 10 mg, Oral, Daily, Fir st dose on 12/06/22 at 1045 Start: 12-03-2022 End: 12-03-2023 take [...] following 120 tablet 11 10/14/2022 10/14/2023 Active Completed/Discontinued Medications Medication Drug Class(es) Dates [...] Start: 09-08-2019 acetaminophen (TYLENOL) tablet 650 mg [id number] actuat albuterol 0.09 mg/actuat metered dose [...] 81 mg, Oral, DAILY, First dose on 09/16/19 at 0900 Start: 09-15-2019 End: 09-15-2019 aspirin [...] MG tablet Indications: Coronary artery disease involving pauma coronary artery of pauma heart without angina pectoris , Other hyperlipidemia [...] 0 Active colchicine 0.6 mg oral tablet (12 sources) Start: 03-27-2024 End: 04-23-2024 take 1 tablet by mouth twice daily Colchicine 0.6 mg tablet Discontinued 0.6 mg PO TWICE A DAY 14 April 08, 2024 1:00am April 23, 2024 8:15pm Gout lisinopril 20 mg oral tablet (20 sources) Angiotensin Converting Enzyme Inhibitor Start: 10-27-2020 End: 04-07-2023 take 1 tablet by mouth once daily Lisinopril 20 mg Tablet Discontinued 20 mg PO DAILY October 27, 2020 12:00am April 07, 2023 10:21am HTN Start: 05-02-2020 take 1 tablet by cary once daily lisinopril (PRINIVIL;ZESTRIL) 20 MG tablet [...] Active magnesium citrate 58.2 mg/ml oral solution (10 sources) Start: 07-05-2023 End: 03-26-2024 take 1 mL by mouth once Magnesium Citrate solution Discontinued 300 mL PO ONE TIME 1 July 05, 2023 1:00am March 27, 2024 [...] 8 HOURS NEEDED as needed for Dizziness 20 0 September 10, 2021 12:05am December 29, 2021 [...] 2 times violet ly, First dose on 12/06/22 at 1045 Start: 01-27-2022 End: 06-17-2023 take [...] TWICE A DAY October 05, 2019 7:53am blood pressure Start: 10-05-2019 End: 10-05-2019 Minoxidil Discontinued EACH [...] unit/gram powder Discontinued 1 NMA TOPICAL DAILY 30 14 0 November 28, 2019 12:00am December 11, 2019 12:00am December 12, 2019 12:02am Apply to umbilical area after shower and area is dry Start: 11-28-2019 End: 12-12-2019 Nystatin Discontinued 1 APPL IC TOPICAL DAILY 30 14 November 27, 2019 11:00pm December 11, 2019 11:02pm Apply to umbilical area after shower and area is dry pantoprazole 40 mg delayed release oral tablet (20 sources) Proton Pump Inhibitor Start: 04-01-2022 End: 03-26-2024 take 1 tablet by mouth once daily in the morning Pantoprazole (Protonix) 40 mg tablet,delayed release (DR/EC) Discontinued 40 mg PO EVERY MORNING 90 3 April 01, 2022 12:41pm March 27, 2024 12:17am Start: 01-14-2022 End: 04-01-2022 Pantoprazole (Protonix) 40 m g tablet,delayed release (DR/EC) Discontinued 40 mg PO TWICE A DAY 60 January 14, 2022 12:00am April 01, 2022 [...] chloride (PF) 0.9 % 10 mL IV (4 sources) Start: 02-07-2025 End: 02-07-2025 0-10 mL, IntraVENous, IMG on ce PRN, other, suboptimal echo image, Starting on 02/07/25 at 1420, For 1 dose, CV Procedural Medications, Administer via slow IVP for suboptimal echocardiogram enhancement. May administer as divided doses to reach optimal image enhancement Start: 08-24-2024 End: 08-24-2024 0-10 mL, IntraVENous, IMG on ce PRN, other, Starting on Nicci 08/24/24 at 1341, For 1 dose, CV Procedural Medications, Draw entire 3 mL vial of perflutren protein A microspheres into a syringe along with 7 ml of NS from a vial to a total volume of 10 mL. polyethylene glycol [id number] [id number] mg powder for oral solution (18 sources) Osmotic Laxative Start: 09-15-2019 End: 07-06-2024 take 17 g by mouth every twenty-four hours as needed for constipation 17 g, Oral, Daily PRN, constipation, Starting on Wed12/06/22 at 1032 1st line for treatment of [...] (Crestor) 40 MG tablet Indications: 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 Take 1 tablet (40 mg) by mouth daily. 90 tablet 3 12/25/2024 8:51 AM EDT 06/06/2024 06/06/2025 Active Start: 12-07-2022 [...] 12 hours, First dose on 12/06/22 at 1045 For Line Patency: Peripheral [...] Start: 12-06-2022 End: 12-08-2022 5-250 mL/hr, IntraVENous, DC N, if patient receiving piggyback infusions and maintenance fluids are not ordered OR KVO fluids to protect IV site / prevent frequent line interruptions / long duration, Starting on 12/06/22 at 1032 For piggyback infusion, administer [...] IV line use, Starting on 12/06/22 at 1032 For Line Patency: Peripheral IV [...] tablet Discontinued 1 g PO .qid 360 0 May 20, 2023 1:00am March 27, 2024 12:16am Start: 01-14-2022 End: 04-01-2022 take 1 tablet by mouth three times daily 1 hour(s) before mealtime Sucralfate 1 gram tablet Discontinued 1 g PO before meals 90 0 January 14, 2022 12:00am April 01, 2022 12:41pm take three times a day one hour before meals and two hours away from other medications sulfamethoxazole 800 mg / trimethoprim 160 mg oral tablet (6 sources) Dihydrofolate Reductase Inhibitor Antibacterial, Sulfonamide Antimicrobial Start: 03-12-2024 End: 03-26-2024 Sulfamethoxazole-Trimethopri m (Bactrim Ds) 800-160 mg tablet Discontinued 1 {tbl} PO TWICE A DAY 20 0 March 12, 2024 12:00am March 27, 2024 12:16am zolpidem tartrate 5 mg oral tablet (5 sources) gamma-Aminobutyr ic Acid-ergic Agonist Start: 11-11-2022 End: 12-03-2022 take [...] [Chronic kidney disease, stage 3a (HCC)] Onset: 3 Chronic obstructive pulmonary disease and [...] Translations: [Coronary atherosclerosis] Onset: 1 02-13-2016 Chronic Deficiency and other anemia (20 sources) Hemoglobin low; Translations: [Anemia, unspecified] 12-29-2021 Episodic Deficiency and other anemia (2 sources) Anemia, unspecified; Translations: [Anemia, unspecified] Episodic Diseases of white blood cells (20 sources) Leukocytosis; Translations: [Elevated white blood cell count, unspecified] 11-09-2020 Chronic Disorders of lipid metabolism (20 sources) Hyperlipidemia; Translations: [Hyperlipidemia, unspecified] Onset: 6 02-13-2016 Chronic E Codes: Fall (17 sources) Accidental fall ; Translations: [Unspecified fall, initial encounter] 12-29-2022 Episodic Esophageal disorders (20 sources) Gastroesophageal reflux disease; Translations: [Gastro-esophageal reflux disease without esophagitis] Chronic Essential hypertension (20 sources) Hypertensive disorder; Translations: [Essential (primary) hypertension] Onset: 9 06-04-2017 Chronic Gastritis and duodenitis (20 sources) Gastritis; Translations: [Gastritis, unspecified, without bleeding] Episodic Gout and other crystal arthropathies (20 sources) Acute gout; Translations: [Gout, unspecified] Onset: 5 05-01-2024 Chronic Hypertension with complications and secondary [...] Translations: [Noninfective gastroenteritis and colitis, unspecified] Episodic Osteoarthritis (1 source) Unilateral primary osteoarthritis, left knee; Translations: [Unilateral primary osteoarthritis, left knee] Onset: 5 Chronic Other circulatory disease (20 sources) H/O: heart disorder; Translations: [Personal history [...] unspecified] 08-21-2022 Episodic Other connective tissue disease (6 sources) Foot swelling; Translations: [Other specified soft tissue disorders] 03-20-2024 Episodic Other connective tissue disease (6 sources) Other bursitis of elbow, left elbow; Translations: [Bursitis of left elbow] 10-31-2020 Episodic Other connective tissue disease (6 sources) Foot pain; Translations: [Pain in right foot] [...] Translations: [Dysphagia, unspecified] Episodic Other gastrointestinal disorders (6 sources) Esophageal dysphagia; Translations: [Other dysphagia] 08-11-2023 Episodic Other hematologic conditions (20 sources) Raised cardiac enzyme or marker; Translations: [Other specified abnormalities of plasma proteins] 09-18-2021 Episodic Other injuries and conditions due to external causes (17 sources) Hematoma; Translations: [Other injury of unspecified body region, initial encounter] 12-29-2022 Episodic Other injuries and conditions due to external causes (17 sources) Contusion of multiple sites; Translations: [Unspecified multiple injuries, initial encounter] 12-29-2022 Episodic Other liver diseases (20 sources) Elevated total bilirubin; Translations: [Unspecified jaundice] 12-29-2021 Episodic Other liver diseases (2 sources) Unspecified jaundice; Translations: [Disorders of bilirubin excretion] Episodic Other lower respiratory disease (2 sources) Interstitial lung disease; Translations: [Interstitial pulmonary disease, unspecified] Chronic Other nutritional; endocrine; and metabolic disorders (20 sources) Obesity; Translations: [Obesity, unspecified] Onset: 1 03-24-2021 Chronic Other nutritional; endocrine; and metabolic disorders (5 sources) Body mass index 30+ - obesity; Translations: [Obesity, unspecified] 02-01-2024 Chronic Other nutritional; endocrine; and metabolic disorders (2 sources) Obesity, unspecified; Translations: [Obesity, unspecified] Onset: 5 Chronic Other skin disorders (20 sources) Epidermoid cyst; [...] Translations: [Obstructive sleep apnea (adult) (pediatric)] Onset: 7 06-04-2017 Chronic Residual codes; unclassified (20 sources) History of colonoscopy; Translations: [Other specified postprocedural states] 01-07-2022 Episodic Comment on above: 2019 Rheumatoid arthritis and related disease (20 sources) Rheumatoid arthritis; Translations: [Rheumatoid arthritis, unspecified] 2020 Chronic Superficial injury; contusion (6 sources) Contusion of rib; Translations: [Contusion of unspecified front wall of thorax, initial encounter] 04-04-2024 Episodic Thyroid disorders (20 sources) Thyroid nodule; Translations: [Nontoxic single thyroid nodule] 10-27-2022 Chronic Unclassified (2 sources) Long-term current use of drug therapy; 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] 05-26-2016 Unclassified (20 sources) severe degenerative arthritis of right hip 10-05-2019 Viral infection (20 sources) COVID-19; Translations: [Pneumonia due to other virus not elsewhere classified] Episodic Past or Other Problems Problem Classification Problem Date Documented Da te Episodic/Chronic Biliary tract disease (20 sources) Calculus of gallbladder with cholecystitis; Translations: [Calculus of gallbladder with chronic cholecystitis without obstruction] Onset: 11-18-2010 10-30-2019 Episodic Cardiac dysrhythmias (8 sources) Palpitations; Translations: [Palpitations] Onset: 07-20-2024 07-20-2024 Episodic Coronary atherosclerosis and other heart disease (20 sources) Past history of procedure; Translations: [Coronary angioplasty status] Onset: 09-14-2024 04-01-2020 Episodic Diabetes mellitus without complication (20 sources) Impaired fasting glycemia; Translations: [Impaired fasting glucose] Onset: 04-30-2009 03-03-2023 Episodic Nonspecific chest pain (20 sources) Chest pain; Translations: [Chest pain, unspecified] Onset: 06-03-2017 09-05-2019 Episodic Other aftercare (20 sources) Long-term current use of anticoagulant; Translations: [FPC (current) use of anticoagulants] Onset: 05-26-2016 05-26-2016 Episodic Other aftercare (20 sources) Long-term current use of drug therapy; 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] Onset: 05-26-2016 05-26-2016 Episodic Other connective tissue disease (1 source) Pain in left toe(s); Translations: [Pain in left toe(s)] Onset: 11-20-2024 Episodic Other connective tissue disease (1 source) [...] of breath; Translations: [Shortness of Breath] Onset: 08-24-2024 Episodic Other lower respiratory disease (2 sources) Other forms of dyspnea; Translations: [Other forms of dyspnea] Onset: 03-07-2022 Episodic Other screening for suspected conditions (not mental disorders or infectious disease) (20 sources) Patient encounter status; Translations: [Encounter for screening for malignant neoplasm of intestinal tract, unspecified] Onset: 05-09-2024 04-01-2020 Episodic Other skin disorders (1 source) Localized [...] 09-28-2022 Episodic Skin and subcutaneous tissue infections (7 sources) Cellulitis; Translations: [Cellulitis, unspecified] Onset: 04-15-2024 03-20-2024 Episodic Results Test Name Value Interpretation Reference Range Facility MRSA/SAID NASAL SCREENon MRSA+SAID SCRN Reason for Exam: pre op MRSA MRSA Negative S. AUREUS S. aureus Negative Normal [facility] Comment on above: Performed By: #### L 503.1150, L506.1000, L506.0250, L501.5200, L501.2300, L500.4100, L509.1000, L500.4050, L503.0105, L503.6075, L100.0100, L503.6550, L501.9520 #### [facility] [address] [place], [address] 36on 02-22-2025 36 Form faxed to [phone] and scanned under Media and confirmed. Normal [facility] 36on 02-21-2025 36 Clearance form compl eted by Dr. Ortega, given to [place] Quick to fax Normal [facility] 36on 02-07-2025 36 Echocardiogram revie wed. EF now ~ 57%, recovered, grade 1 diastolic dysfunction, RV WNL. No valvular abnormalities. Discussed results with him at OV with BP this afternoon. Normal [facility] Office Visiton 02-07-2025 Follow-up visit [id number] Shannon Olson 1955 M Date Provider Department Center 02/07/2025 [id number] ORTEGA SH[facility] ACH HARIKA SHMGCV [address] Family History Problem Relation Age of Onset Diabetes Paternal Grandmother Diabetes Maternal Grandfather Cancer Sister Hypertension Mother Diabetes Sister Diabetes Paternal Grandfather Heart disease Paternal Grandmother Heart disease Paternal Grandfather Cancer Father Diabetes Brother Family Status - Relation Status Age at Paternal Grandmother Maternal Grandfather Sister Mother Alive Paternal Grandfather Father Brother Level of Service:89237 DC OFFICE/OUTPATIENT ESTABLISHED LOW MDM 20 MIN Reason for Visit and Comments: Annual Exam [83] Normal [facility] Progress Noteon 02-07-2025 Progress Note [facility] [place] [address] [facility] [facility] [address] Dept: [phone] Dept Visit type: Established : 1955 Reason for Visit: Annual Assessment and Plan 1. 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 Essential hypertension, benign 3. Mixed hyperlipidemia This is a very pleasant 69y/o male with complex CAD, most recent stent in 02/2021. We will continue medical management and observation for now, and have discussed the prospect that he has had 20+ caths and 20+ stents, and we need to be a bit selective about when to cath and stent next. He has lost some weight and actually feels improved symptoms lyon. He is in great spirits today. Otherwise he should remain as active as possible and I will see him back in one year, sooner if needed. It was a pleasure seeing your patient in the office today. Please do not hesitate to call me with any questions. Follow up in about 1 year (around 02/07/2026). 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 He has a history of CAD s/p numerous stent procedures, all three vessels. Most recent PCI was 02/2021 (RCA), most recent cath was 02/2025 now showed occluded RCA, was not restented. Shannon Olson is here for routine follow up. he Is doing well, having no cardiac symptoms. Review of Systems Constitutional: Negative for activity [...] bruise/bleed easily. Psychiatric/Behavioral: Negative for dysphoric mood. Allergies[1] Current Medications[2] Medical History[3] Social History Tobacco Use Smoking status: Never Smokeless tobacco: Never Substance Use Topics Alcohol use: Not Currently Surgical History[4] Family History[5] Objective Vitals: 02/07/25 1518 BP: 136/88 BP Location: Left arm Patient Position: Sitting BP Cuff Size: Large adult Pulse: 63 Weight: 294 lb (133 kg) Height: 6' 2.5" (1.892 m) Physical Exam Constitutional: General: He [...] Behavior: Behavior normal. Data Reviewed and Summarized EF BP Date Value Ref Range Status 02/07/2025 57 55 - 100 % Final Review of tests/labs done/ordered within my specialty: EKG in office: Review of tests/labs done/ordered outside my specialty: Independent interpretation of tests: Dominguez Ortega MD [1] Allergies Allergen Reactions Penicillins Rash [2] Current Outpatient Medications: amiodarone (Pacerone) 200 MG tablet, Take 1 tablet (200 mg) by mouth daily., Disp: 90 tablet, Rfl: 0 amLODIPine (Norvasc) 5 MG tablet, Take 1 tablet (5 mg) by mouth daily., Disp: , Rfl: amLODIPine (Norvasc) 5 MG tablet, Take 1 tablet (5 mg) by mouth once daily, Disp: 180 tablet, Rfl: 3 apixaban (Eliquis) 5 MG tablet, Take 1 tablet (5 mg) by mouth 2 times daily., Disp: 180 tablet, Rfl: 3 cholecalciferol (Vitamin D-3) 20 MCG (800 UNIT) tablet, Take 800 Units by mouth daily., Disp: , Rfl: clopidogrel (Plavix) 75 MG tablet, Take 1 tablet (75 mg) by mouth daily., Disp: 90 tablet, Rfl: 3 ezetimibe (Zetia (more content not included)... Normal [facility] [facility] US Heart TransthoracicOrdere d By: Ana Bains on 02-07-2025 Aortic Sinus Valsalva 3.7 cm [facility] [employer] Phone: Aortic Sinus Valsalva Index 1.45 cm/m2 [facility] Phone: Aortic valve Mean systole pressure gradient by US.doppler derived full Bernoulli 4 mmHg [facility] Phone: Aortic valve Orifice area by US 4.5 cm2 [facility] [employer] Phone: Aortic valve Peak systolic flow by US.doppler 0.9 m/s [facility] Phone: Ascending Aorta 3.9 cm [facility] [employer] Phone: Ascending Aorta Index 1.52 cm/m2 [facility] [employer] Phone: AV Area by Peak Velocity 3.1 cm2 [facility] [employer] Phone: AV Area by VTI 3 cm2 [facility] [employer] Phone: AV Peak Gradient 6 mmHg [facility] [employer] Phone: AV Peak Velocity 1.3 m/s [facility] [employer] Phone: AV Velocity Ratio 0.62 [facility] [employer] Phone: AV VTI 26.3 cm [facility] [employer] Phone: GRACE/BSA Peak Velocity 1.2 cm2/m2 [facility] [employer] Phone: GRACE/BSA VTI 1.2 cm2/m2 [facility] [employer] Phone: E/E' Lateral 5.29 [facility] [employer] Phone: E/E' Ratio (Averaged) 7.27 [facility] [employer] Phone: E/E' Septal 9.25 [facility] [employer] Phone: Est. RA Pressure 8 mmHg [facility] Work Phone: Fractional Shortening 2D 12 % 28 - 44 % [facility] [employer] Phone: Interpretation and review of laboratory results Abnormal [facility] [employer] Work Phone: IVC Diameter 1.9 cm [facility] [employer] Work Phone: IVSd 1.4 cm Abnormal 0.6 - 1.0 cm [facility] [employer] Work Phone: LA Diameter 5.6 cm [facility] [employer] Work Phone: LA Size Index 2.19 cm/m2 [facility] [employer] Phone: LA Volume 2C 53 mL 18 - 58 mL [facility] [employer] Phone: LA Volume 4C 67 mL Abnormal 18 - 58 mL [facility] [employer] Phone: LA Volume A/L 64 mL [facility] [employer] Phone: LA Volume BP 61 mL Abnormal 18 - 58 mL [facility] [employer] Phone: LA Volume Index 2C 21 mL/m2 16 - 34 mL/m2 [facility] [employer] Phone: LA Volume Index 4C 26 mL/m2 16 - 34 mL/m2 [facility] [employer] Phone: LA Volume Index A/L 25 mL/m2 16 - 34 mL/m2 [facility] [employer] Phone: LA Volume Index BP 24 ml/m2 16 - 34 ml/m2 [facility] [employer] Phone: Left ventricular Ejection fraction by US.2D+Calculated by biplane method of disks 57 % 55 - 100 % [facility] [employer] Work Phone: LV E' Lateral Velocity 7 cm/s [facility] [employer] Work Phone: LV E' Septal Velocity 4 cm/s [facility] [employer] Work Phone: LV EDV A2C 81 mL [facility] [employer] Work Phone: LV EDV A4C 216 mL [facility] [employer] Work Phone: LV EDV BP 136 mL 67 - 155 mL [facility] [employer] Work Phone: LV EDV Index A2C 32 mL/m2 [employer] Work Phone: LV EDV Index A4C 84 mL/m2 [employer] Work Phone: LV EDV Index BP 53 mL/m2 [employer] Work Phone: LV Ejection Fraction A2C 68 % [employer] Work Phone: LV Ejection Fraction A4C 43 % [employer] Work Phone: LV ESV A2C 26 mL [employer] Work Phone: LV ESV A4C 124 mL [employer] Work Phone: LV ESV BP 59 mL Abnormal 22 - 58 mL [employer] Work Phone: LV ESV Index A2C 10 mL/m2 [employer] Phone: LV ESV Index A4C 48 mL/m2 [employer] Work Phone: LV ESV Index BP 23 mL/m2 [employer] Work Phone: LV Mass 2D 314 g Abnormal 88 - 224 g [employer] Work Phone: LV Mass 2D Index 122.7 g/m2 Abnormal 49 - 115 g/m2 [employer] Work Phone: LV RWT Ratio 0.38 [employer] Phone: LVIDd 5.8 cm 4.2 - 5.9 cm [employer] Work Phone: LVIDd Index 2.27 cm/m2 [employer] Work Phone: LVIDs 5.1 cm [employer] Work Phone: LVIDs Index 1.99 cm/m2 [employer] Work Phone: LVOT Cardiac Output 4.4 liter/mi nu te [employer] Work Phone: LVOT Diameter 2.4 cm [employer] Work Phone: LVOT Mean Gradient 2 mmHg [employer] Work Phone: LVOT Peak Gradient 3 mmHg [facility] Work Phone: LVOT Peak Velocity 0.8 m/s [facility] [employer] Work Phone: LVOT Stroke Volume Index 29.8 mL/m2 [facility] [employer] Work Phone: LVOT SV 76.4 ml [facility] [employer] Work Phone: LVOT VTI 16.9 cm [facility] [employer] Work Phone: LVOT:AV VTI Index 0.64 [facility] [employer] Work Phone: LVPWd 1.1 cm Abnormal 0.6 - 1.0 cm [facility] [employer] Work Phone: MV A Velocity 0.61 m/s [facility] [employer] Work Phone: MV E Velocity 0.37 m/s [facility] [employer] Work Phone: MV E Wave Deceleration Time 417.6 ms [facility] [employer] Work Phone: MV E/A 0.61 [facility] [employer] Work Phone: Pulm Vein A Duration 182.7 ms [facility] [employer] Work Phone: Pulm Vein A Velocity 0.3 m/s [facility] [employer] Work Phone: Pulm Vein Peak D Velocity 0.2 m/s [facility] [employer] Work Phone: Pulm Vein Peak S Velocity 0.4 m/s [facility] [employer] Work Phone: Pulm Vein S/D 2 [facility] [employer] Work Phone: Pulmonary Artery EDP 12 mmHg [facility] [employer] Work Phone: Pulmonary Artery EDP 7 mmHg [facility] [employer] Work Phone: RV Free Wall Peak S' 16 cm/s [facility] [employer] Work Phone: RVSP 24 mmHg [facility] [employer] Work Phone: Sinotubular Junction 3.4 cm [facility] [employer] Work Phone: TAPSE 2.5 cm 1.7 cm [facility] [employer] Work Phone: TR Max Velocity 1.98 m/s [employer] Phone: TR Peak Gradient 16 mmHg [employer] Phone: [employer] Phone: Heart Transthoracicon Left Ventricle: Left ventricle size is upper normal. Mildly increased wall thickness. Normal left ventricular systolic function. EF by 2D Simpsons Biplane is 57%. Normal wall motion. Grade I diastolic dysfunction with normal LAP. Very poor images, despite the administration of IV constrast, UEA. Right Ventricle: Not well visualized. Right ventricle size is normal. Normal systolic function. No significant valvular abnormalities; however, imaging is limited. Technically difficult study. Left Ventricle Left ventricle size is upper normal. Mildly increased wall thickness. Normal left ventricular systolic function. EF by 2D Simpsons Biplane is 57%. Normal wall motion. Grade I diastolic dysfunction with normal LAP. Very poor images, despite the administration of IV constrast, UEA. Right Ventricle Not well visualized. Right ventricle size is normal. Normal systolic function. Left Atrium Left atrium size is normal. Right Atrium Not well visualized. Right atrium size is normal. IVC/SVC IVC diameter is normal and decreases less than 50% during inspiration; therefore the estimated right atrial pressure is intermediate (~8 mmHg). Mitral Valve Valve structure is normal. Trace regurgitation. No stenosis noted. Tricuspid Valve Valve structure is normal. Mild (1+) regurgitation. Normal RVSP. RVSP is 24 mmHg. Aortic Valve Trileaflet. No cusp thickening. No cusp calcification. Mild (1+) regurgitation. No stenosis. Pulmonic Valve The pulmonic valve visualization is suboptimal but appears to be functioning normally. Valve structure is normal. Mild (1+) regurgitation. Ascending Aorta Normal sized sinuses of Valsalva and ascending aorta. Pericardium Evidence of prominent epicardial fat. No pericardial effusion. Septum No interatrial shunt visualized on color Doppler. Study Details Image quality: suboptimal. Heart rate: 54 bpm. Blood pressure: 137/78 mmHg. The underlying ECG rhythm was sinus bradycardia. Cardiac history: prior PCI. Technical qualifiers: Technically difficult study, technically difficult study with poor endocardial visualization and technically difficult study due to patient's body habitus. Ultrasound enhancement agent was given to enhance imaging. Echo Additional Conclusions No significant valvular abnormalities.Technically difficult study. CV CPACS Extremity Lower without Cont raon 01-29-2025 Extremity Lower without Contra [facility] Imaging Services [address] [place] [address] Extremity Lower without Contra MR#: [id number] Acct: [id number] Name: SHANNON OLSON Rep #: [id number] : 1955 M 69 From: Dom Echols PCP: Dr. Finn Ferrell MD Status: REG CLI Study: Extremity Lower without Contra Date of Exam: 0 01/29/25 Exam# [id number] Ordering Dr: Terry Figueroa MD PROCEDURE: EXTREMITY LOWER WITHOUT CONTRA 01/29/2025 REASON FOR EXAM: UNILATERAL PRIMARY OSTEOARTHRITIS,LT KNEE,THYROID TECHNIQUE: Procedure Code: CTELWO Modality: CT Procedure: KYMBERLY noncontrasted CT of the left knee, to include the hip and ankle. Coronal and Sagittal reconstruction series were provided. One or more dose reduction techniques were used (e.g., Automated exposure control, adjustment of the mA and/or kV according to patient size, use of iterative reconstruction technique). RADIATION DOSE SUMMARY: DLP: 3639.44 mGycm COMPARISON: Abdomen and pelvis CT of 07/05/2023 FINDINGS: Bones and joints: Of the visualized portion of the lower lumbar spine, again seen are prominent degenerative changes. Left sacroiliac joint again shows moderately severe degenerative change. No significant Johnston's or popliteal cyst is seen about the left knee. Advanced tricompartmental left knee degenerative changes are seen, with severe medial and patellofemoral narrowing noted. No significant left knee joint effusion is seen. A left total hip prosthesis is in place, without findings to suggest loosening or metallic fracture noted. Associated metallic artifact is seen. Mild degenerative changes are seen about the left ankle, hindfoot, and midfoot. Soft Tissues: Moderate arterial calcification is noted. CT/Extremity Lower without Contra IMPRESSION: Postsurgical and degenerative changes as described. Reading Location: [place] [address] CC: Dr. Finn Ferrell MD; Dr. Terry Figueroa MD Camp Advisor: Signed Normal [facility] Thyroidon 01-29-2025 Thyroid [facility] Imaging Services [address] [place], [place] [id number] Thyroid MR#: [id number] Acct: [id number] Name: SHANNON OLSON Rep #: [id number] : 1955 M 69 From: Beka tariq MD PCP: Dr. Finn Ferrell MD Status: REG CLI Study: Thyroid Date of Exam: 01/29/25 Exam# [id number] Ordering Dr: Finn Ferrell MD PROCEDURE: THYROID 01/29/2025 REASON FOR EXAM: NODULE Follow-up examination. TECHNIQUE: Procedure Code: USTHY Modality: US Procedure: THYROID COMPARISON: Prior study dated October 05, 2023. FINDINGS: Right thyroid lobe size: 3.9 cm x 1.9 cm 1.8 cm Left thyroid lobe size: 4.1 cm x 1.7 cm x 2 cm Isthmus: 0.6 cm Background parenchymal echotexture is heterogeneous. Nodules: . Lobe: Left, Location: Midpole, Size: 1.4 cm 1.2 cm 1.3 cm, Stability: Stable Composition: Solid or almost completely solid (+2) Echogenicity: Hypoechoic (+2) Margin: Smooth (+0) Shape: Wider than tall (+0) Echogenic Foci: None (+0) TI-RADS: 4 US/Thyroid IMPRESSION: Stable examination. 1.4 cm 1.2 cm 1.3 cm nodule in the midpole of the left lobe of the thyroid. RECOMMENDATION: Based on most suspicious nodule. Nodule size = largest diameter Only evaluate nodule if =>5 mm. Growth > 20% in 2 dimensions = worsening. Follow up to 4 nodules. Recommend biopsy for no more than 2 nodules. Reading Location: [id number] CC: Dr. Finn Ferrell MD Camp Advisor: Signed Normal [facility] [id number] 01-25-2025 [facility] Misc. COMMENT Normal . [facility] Comment on above: Order Comment: Order Date: 04/28/24 Order Info: [id number] - CMP Order Info: [id number] - LIPID Order Info: [id number] - URIC Order Info: [id number] - PHOS Order Info: [id number] - MG Order Info: [id number] - TSH Order Info: [id number] - TIBC Order Info: [id number] - FE Order Info: [id number] - AG Order Info: [id number] - FOLS N Result Comment: Test Ordered: [id number] JAK2 Mutation Analysis, Qual JAK2 V617F mutation detection Comment [facility]AMP[facility] Reference Range: . Result: NEGATIVE for the JAK2 V617F mutation. Interpretation: The G to T nucleotide change encoding the V617F mutation was not detected. This result does not rule out the presence of the JAK2 mutation at a level below the sensitivity of detection of this assay, or the presence of other mutations within JAK2 not detected by this assay. This result does not rule out a diagnosis of polycythemia vera, essential thrombocythemia or idiopathic myelofibrosis as the V617F mutation is not detected in all patients with these disorders. Background: Comment TG Reference Range: . JAK2 is a cytoplasmic tyrosine kinase with a rolon role in signal transduction from multiple hematopoietic growth factor receptors. A point mutation within exon 14 of the JAK2 gene (K1053P) encoding a valine to phenylalanine substitution at position 617 of the JAK2 protein (V617F) has been identified in most patients with polycythemia vera, and in about half of those with either essential thrombocythemia or idiopathic myelofibrosis. The V617F has also been detected, although infrequently, in other myeloid disorders such as chronic myelomonocytic leukemia and chronic neutrophilic luekemia. V617F is an acquired mutation that alters a highly conserved valine present in the negative regulatory JH2 domain of the JAK2 protein and is predicted to dysregulate kinase activity. Methodology: Total genomic DNA was extracted and subjected to TaqMan real-time PCR amplification/detection. Two amplification products per sample were monitored by real-time PCR using primers/probes specific to JAK2 wild type (WT) and JAK2 mutant V617F. The [employer] Absolute Quantitation software will compare the patient specimen valuse to the standard curves and generate percent values for wild type and mutant type. In vitro studies have indicated that this assay has an analytical sensitivity of 1%. References: Kyaw EJ, Vinayak GARCIA, Moose PJ, et al. Acquired mutation of the tyrosine kinase JAK2 in human myeloproliferative disorders. Lancet. 2005 Aug 09-; 365(4964):6470-5673. Ralph Harris, Andre V, Gretchen Land MENDOZA. 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 Nature. 2005 Sep 18; 722(0917):5201-0280. Nehemias R, Noy F, Bhumika , et al. A gain-of- function mutation of JAK2 in myeloproliferative disorders. N Engl J Med. 2005 Sep 18; 35217):4587-7354. Director Review: Roman CAMPOS Reference Range: . Technical Component performed at [facility] Professional Component performed by: Chan Minor, PhD, [facility] Director, [facility] [place], [address] [place] [address] This test was developed and its performance characteristics determined by [employer]. It has not been cleared or approved by the Food and Drug Administration. Performed at: [facility] [address] [place], [place] [id number] Sheet Metal Layout Mechanic: Adelina Lockhart [facility], Phone: [phone] Performed at: - [facility] [address] [place], [place] [id number] Sheet Metal Layout Mechanic: Adelina Lockhart [facility], Phone: [phone] Performed at: [address] [id number] Sheet Metal Layout Mechanic: Terrance Ashford PhD, Phone: [phone] Performed By: #### L 503.6150, L506.1000, L506.0250, L501.5200, L501.2300, L500.4100, L509.1000, L500.4050, L503.0105, L503.6075, L100.0100, L503.6550, L501.9520 #### [facility] [address] [place], [place], [address] 01-19-2025 36 Patient called pujae sting me to let Danisha know his surgery is scheduled 04/02/25. He does not need a call back. [facility] 01-18-2025 36 Received fax from [facility] [place], patient scheduled for a robotic assisted left total knee arthoplasty on 04/02/[address] Figueroa. Patient has an upcoming appt with Dr. Ortega on 02/07/25, will address clearance at that time. Normal [facility] Ferritinon 01-17-2025 Ferritin [Mass/Vol] 606 ng/mL High 37-417 [facility] Comment on above: Order Comment: Order Date: 04/28/24 Order Info: 0565-1 - PTHIN Performed By: #### L 503.6150, L506.1000, L506.0250, L501.5200, L501.2300, L500.4100, L509.1000, L500.4050, L503.0105, L503.6075, L100.0100, L503.6550, L501.9520 #### [facility] [address] [place], [place], [id number] Iron+Iron Binding Capacityon 01-17-2025 Iron [Mass/Vol] 114 ug/dL Normal 65-175 [facility] Comment on above: Order Comment: Order Date: 04/28/24 Order Info: 0565-1 - PTHIN Performed By: #### L 503.6150, L506.1000, L506.0250, L501.5200, L501.2300, L500.4100, L509.1000, L500.4050, L503.0105, L503.6075, L100.0100, L503.6550, L501.9520 #### [facility] [address] [place], [place], [id number] IRON SATURATION 40.0 Normal 9-55 [facility] Comment on above: Order Comment: Order Date: 04/28/24 Order Info: 0565-1 - PTHIN Performed By: #### L 503.6150, L506.1000, L506.0250, L501.5200, L501.2300, L500.4100, L509.1000, L500.4050, L503.0105, L503.6075, L100.0100, L503.6550, L501.9520 #### [facility] [address] [place], [address] TIBC 285 ug/dL Normal 250-450 [facility] Comment on above: Order Comment: Order Date: 04/28/24 Order Info: 0565-1 - PTHIN Performed By: #### L 503.6150, L506.1000, L506.0250, L501.5200, L501.2300, L500.4100, L509.1000, L500.4050, L503.0105, L503.6075, L100.0100, L503.6550, L501.9520 #### [facility] [address] [place], [address] UIBC 171 ug/dL Low 228-428 [facility] Comment on above: Order Comment: Order Date: 04/28/24 Order Info: 0565-1 - PTHIN Performed By: #### L 503.6150, L506.1000, L506.0250, L501.5200, L501.2300, L500.4100, L509.1000, L500.4050, L503.0105, L503.6075, L100.0100, L503.6550, L501.9520 #### [facility] [address] [place], [address] 36on 01-16-2025 36 Phone call to ashley laws to review lab work, LDL now down to 58 , from 82 at goal, Triglycerides down to 167, CBC stable, CMP reviewed, Stable with mild increase in Creatinine, will try reducing Aldactone to 25 mg daily. He is getting a repeat Echocardiogram with F/U with Dr. Ortega on 02/07/2025. He already taking torsemide once a day, unless he develops edema. Continue other medications as listed. He continues to feel good, very active, no angina, no SOB. Normal [facility] Absolute lymphocyte countOrd ered By: Finn Ferrell on 01-15-2025 Lymphocytes Auto (Unsp spec) [#/Vol] 1.85 10*3/uL 0.83-4.51 [facility] Absolute neutrophil countOrd ered By: Finn Ferrell on 01-15-2025 Neutrophils (Bld) [#/Vol] 6.3 10*3/uL 2.0-7.7 [facility] Anion gap in Serum or Plasma Ordered By: Finn Ferrell on 01-15-2025 Anion gap [Moles/Vol] 13 mmol/L 5- [facility] Automated lymphocyte count a s percentage of total leukocytesOrdered By: Finn Ferrell on 01-15-2025 Lymphocytes/100 WBC Auto (Unsp spec) 21.0 % - [facility] BUN/creatinine ratioOrdered By: Finn Ferrell on 01-15-2025 Urea nitrogen/Creatinine [Mass ratio] 13.0 mg/mg - [facility] Basophil percentageOrdered B y: Finn Ferrell on 01-15-2025 Basophils/100 WBC (Bld) 0.6 % 0- [facility] Bilirubin, totalOrdered By: Finn Ferrell on 01-15-2025 Bilirubin [Mass/Vol] 0.93 mg/dL 0.00-1.30 [facility] CBC W/Diff, Automatedon 12-23 Absolute Lymph 1.85 X10 3/uL Normal 0.83-4.51 [facility] Comment on above: Order Comment: Order Date: 04/28/24 Order Info: 0786-1 - CMP Order Info: 30009-9 - LIPID Order Info: 3084-1 - URIC Order Info: 2777-1 - PHOS Order Info: 13620-3 - MG Order Info: 3016-3 - TSH Order Info: 2500-7 - TIBC Order Info: 2498-4 - FE Order Info: 2276-4 - AG Order Info: 2284-8 - FOLS N Performed By: #### L 503.6150, L506.1000, L506.0250, L501.5200, L501.2300, L500.4100, L509.1000, L500.4050, L503.0105, L503.6075, L100.0100, L503.6550, L501.9520 #### [facility] [address] [place], [address] Absolute Neut 6.3 X10 3/uL Normal 2.0-7.7 [facility] Comment on above: Order Comment: Order Date: 04/28/24 Order Info: 0786- - CMP Order Info: 66459-2 - LIPID Order Info: 3083-05 - URIC Order Info: 2776-05 - PHOS Order Info: 48620-9 - MG Order Info: 3015-07 - TSH Order Info: 2499-11 - TIBC Order Info: 2497-08 - FE Order Info: 2275-08 - AG Order Info: 2283-12 - FOLS N Performed By: #### L 503.6150, L506.1000, L506.0250, L501.5200, L501.2300, L500.4100, L509.1000, L500.4050, L503.0105, L503.6075, L100.0100, L503.6550, L501.9520 #### [facility] [address] [place], [place], [address] Basophils/100 WBC (Bld) 0.6 % Normal 0-1 [facility] Comment on above: Order Comment: Order Date: 04/28/24 Order Info: 0786- - CMP Order Info: 97925-6 - LIPID Order Info: 3083-05 - URIC Order Info: 2776-05 - PHOS Order Info: 83603-1 - MG Order Info: 3015-07 - TSH Order Info: 2499-11 - TIBC Order Info: 2497-08 - FE Order Info: 2275-08 - AG Order Info: 2283-12 - FOLS N Performed By: #### L 503.6150, L506.1000, L506.0250, L501.5200, L501.2300, L500.4100, L509.1000, L500.4050, L503.0105, L503.6075, L100.0100, L503.6550, L501.9520 #### [facility] [address] [place], [place], [address] Eosinophils/100 WBC (Bld) 0.8 % Normal 0-5 [facility] Comment on above: Order Comment: Order Date: 04/28/24 Order Info: 0786-1 - CMP Order Info: 12167-2 - LIPID Order Info: 3083-05 - URIC Order Info: 2776-05 - PHOS Order Info: 84534-6 - MG Order Info: 3015-07 - TSH Order Info: 2499-11 - TIBC Order Info: 2497-08 - FE Order Info: 2275-08 - AG Order Info: 2283-12 - FOLS N Performed By: #### L 503.6150, L506.1000, L506.0250, L501.5200, L501.2300, L500.4100, L509.1000, L500.4050, L503.0105, L503.6075, L100.0100, L503.6550, L501.9520 #### [facility] [address] [place], [place], [address] Erythrocyte distribution width (RBC) [Ratio] 14.1 % Normal 11.6-14.6 [facility] Comment on above: Order Comment: Order Date: 04/28/24 Order Info: 0786-1 - CMP Order Info: 26753-6 - LIPID Order Info: 3083-05 - URIC Order Info: 2776-05 - PHOS Order Info: 96196-3 - MG Order Info: 3015-07 - TSH Order Info: 2499-11 - TIBC Order Info: 2497-08 - FE Order Info: 2275-08 - AG Order Info: 2283-12 - FOLS N Performed By: #### L 503.6150, L506.1000, L506.0250, L501.5200, L501.2300, L500.4100, L509.1000, L500.4050, L503.0105, L503.6075, L100.0100, L503.6550, L501.9520 #### [facility] [address] [place], [place], [address] Hematocrit (Bld) [Volume fraction] 39.2 % Low 40-54 [facility] Comment on above: Order Comment: Order Date: 04/28/24 Order Info: 785- - CMP Order Info: 58757-9 - LIPID Order Info: 3083-05 - URIC Order Info: 2776-05 - PHOS Order Info: 01531-6 - MG Order Info: 3015-07 - TSH Order Info: 2499-11 - TIBC Order Info: 2497-08 - FE Order Info: 2275-08 - AG Order Info: 2283-12 - FOLS N Performed By: #### L 503.6150, L506.1000, L506.0250, L501.5200, L501.2300, L500.4100, L509.1000, L500.4050, L503.0105, L503.6075, L100.0100, L503.6550, L501.9520 #### [facility] [address] [place], [place], [address] Hemoglobin (Bld) [Mass/Vol] 12.7 g/dL Low 13.0-16.5 [facility] Comment on above: Order Comment: Order Date: 04/28/24 Order Info: 785-05 - CMP Order Info: - LIPID Order Info: 3083-05 - URIC Order Info: 2776-05 - PHOS Order Info: 02720-5 - MG Order Info: 3015-07 - TSH Order Info: 2499-11 - TIBC Order Info: 2497-08 - FE Order Info: 2275-08 - AG Order Info: 2283-12 - FOLS N Performed By: #### L 503.6150, L506.1000, L506.0250, L501.5200, L501.2300, L500.4100, L509.1000, L500.4050, L503.0105, L503.6075, L100.0100, L503.6550, L501.9520 #### [facility] [address] [place], [address] IG% 0.800 Normal 0.0-0.9 [facility] Comment on above: Order Comment: Order Date: 04/28/24 Order Info: 07 - CMP Order Info: - LIPID Order Info: 3083-05 - URIC Order Info: 2776-05 - PHOS Order Info: 39720-6 - MG Order Info: 3015-07 - TSH Order Info: 2499-11 TIBC Order Info: 2497-08 - FE Order Info: 2275-08 - AG Order Info: 2283-12 - FOLS N Result Comment: IG% - Immature Granulocytes (promyelocytes, myelocytes and metamyelocytes) > 1% indicates that a LEFT SHIFT is Present. Performed By: #### L 503.6150, L506.1000, L506.0250, L501.5200, L501.2300, L500.4100, L509.1000, L500.4050, L503.0105, L503.6075, L100.0100, L503.6550, L501.9520 #### [facility] [address] [place], [place], [address] Lymphocytes/100 WBC (Bld) 21.0 % Normal 19-41 [facility] Comment on above: Order Comment: Order Date: 04/28/24 Order Info: 785-05 - CMP Order Info: - LIPID Order Info: 3083-05 - URIC Order Info: 2776-05 - PHOS Order Info: 50958-7 - MG Order Info: 3015-07 - TSH Order Info: 2499-11 TIBC Order Info: 2497-08 - FE Order Info: 2275-08 - AG Order Info: 2283-12 - FOLS N Performed By: #### L 503.6150, L506.1000, L506.0250, L501.5200, L501.2300, L500.4100, L509.1000, L500.4050, L503.0105, L503.6075, L100.0100, L503.6550, L501.9520 #### [facility] [address] [place], [place], [address] MCH (RBC) [Entitic mass] 30.4 pg Normal 27.0-32.0 [facility] Comment on above: Order Comment: Order Date: 04/28/24 Order Info: 0786-1 - CMP Order Info: 65027-8 - LIPID Order Info: 4- - URIC Order Info: 2776-05 - PHOS Order Info: 91039-9 - MG Order Info: 3015-07 - TSH Order Info: 2499-11 - TIBC Order Info: 2497-08 - FE Order Info: 2275-08 - AG Order Info: 2283-12 - FOLS N Performed By: #### L 503.6150, L506.1000, L506.0250, L501.5200, L501.2300, L500.4100, L509.1000, L500.4050, L503.0105, L503.6075, L100.0100, L503.6550, L501.9520 #### [facility] [address] [place], [place], [address] MCHC (RBC) [Mass/Vol] 32.4 g/dL Normal 32-36 [facility] Comment on above: Order Comment: Order Date: 04/28/24 Order Info: 0786-1 - CMP Order Info: 67116-0 - LIPID Order Info: 3083-05 - URIC Order Info: 2776-05 - PHOS Order Info: 22897-6 - MG Order Info: 3015-07 - TSH Order Info: 2499-11 - TIBC Order Info: 2497-08 - FE Order Info: 2275-08 - AG Order Info: 2283-12 - FOLS N Performed By: #### L 503.6150, L506.1000, L506.0250, L501.5200, L501.2300, L500.4100, L509.1000, L500.4050, L503.0105, L503.6075, L100.0100, L503.6550, L501.9520 #### [facility] [address] [place], [place], [address] MCV (RBC) [Entitic vol] 93.8 fL Normal 80-94 [facility] Comment on above: Order Comment: Order Date: 04/28/24 Order Info: 0786-1 - CMP Order Info: 82542-5 - LIPID Order Info: 3083-05 - URIC Order Info: 2776-05 - PHOS Order Info: 36994-2 - MG Order Info: 3 - TSH Order Info: 2499-11 - TIBC Order Info: 2497-08 - FE Order Info: 2275-08 - AG Order Info: 2283-12 - FOLS N Performed By: #### L 503.6150, L506.1000, L506.0250, L501.5200, L501.2300, L500.4100, L509.1000, L500.4050, L503.0105, L503.6075, L100.0100, L503.6550, L501.9520 #### [facility] [address] [place], [address] Monocytes/100 WBC (Bld) 5.7 % Normal 0-10 [facility] Comment on above: Order Comment: Order Date: 04/28/24 Order Info: 07 - CMP Order Info: - LIPID Order Info: 3083-05 - URIC Order Info: 2776-05 - PHOS Order Info: 78136-9 - MG Order Info: 3 - TSH Order Info: 2499-11 - TIBC Order Info: 2497-08 - FE Order Info: 2275-08 - AG Order Info: 2283-12 - FOLS N Performed By: #### L 503.6150, L506.1000, L506.0250, L501.5200, L501.2300, L500.4100, L509.1000, L500.4050, L503.0105, L503.6075, L100.0100, L503.6550, L501.9520 #### [facility] [address] [place], [address] Neutrophils/100 WBC (Bld) 71.1 % High 47-70 [facility] Comment on above: Order Comment: Order Date: 04/28/24 Order Info: 0786-1 - CMP Order Info: 54149-8 - LIPID Order Info: 3084 - URIC Order Info: 2777 - PHOS Order Info: 54389-1 - MG Order Info: 3 - TSH Order Info: 2499-11 - TIBC Order Info: 2497-08 - FE Order Info: 2275-08 - AG Order Info: 2283-12 - FOLS N Performed By: #### L 503.6150, L506.1000, L506.0250, L501.5200, L501.2300, L500.4100, L509.1000, L500.4050, L503.0105, L503.6075, L100.0100, L503.6550, L501.9520 #### [facility] [address] [place], [place], [address] Nucleated RBC (Bld) [#/Vol] 0 10*3/uL Normal 0-5 [facility] Comment on above: Order Comment: Order Date: 04/28/24 Order Info: 0786-1 - CMP Order Info: 69875-3 - LIPID Order Info: 4 - URIC Order Info: 27711-21 - PHOS Order Info: 39140-7 - MG Order Info: 3015-07 - TSH Order Info: 2499-11 - TIBC Order Info: 2497-08 - FE Order Info: 2275-08 - AG Order Info: 2283-12 - FOLS N Performed By: #### L 503.6150, L506.1000, L506.0250, L501.5200, L501.2300, L500.4100, L509.1000, L500.4050, L503.0105, L503.6075, L100.0100, L503.6550, L501.9520 #### [facility] [address] [place], [address] Platelet mean volume (Bld) [Entitic vol] 9.6 fL Normal 6.2-12.0 [facility] Comment on above: Order Comment: Order Date: 04/28/24 Order Info: 0786-1 - CMP Order Info: 36299-7 - LIPID Order Info: 3084-1 - URIC Order Info: 2777-1 - PHOS Order Info: 16915-1 - MG Order Info: 3 - TSH Order Info: 2499-11 - TIBC Order Info: 2497-08 - FE Order Info: 2275-08 - AG Order Info: 2283-12 - FOLS N Performed By: #### L 503.6150, L506.1000, L506.0250, L501.5200, L501.2300, L500.4100, L509.1000, L500.4050, L503.0105, L503.6075, L100.0100, L503.6550, L501.9520 #### [facility] [address] [place], [place], [address] (142) Platelets (Bld) [#/Vol] 257 10*3/uL Normal 150-450 [facility] Comment on above: Order Comment: Order Date: 04/28/24 Order Info: 0786-1 - CMP Order Info: 48906-9 - LIPID Order Info: 3084-1 - URIC Order Info: 2777-1 - PHOS Order Info: 08117-0 - MG Order Info: 3015-07 - TSH Order Info: 2499-11 - TIBC Order Info: 2497-08 - FE Order Info: 2275-08 - AG Order Info: 2283-12 - FOLS N Performed By: #### L 503.6150, L506.1000, L506.0250, L501.5200, L501.2300, L500.4100, L509.1000, L500.4050, L503.0105, L503.6075, L100.0100, L503.6550, L501.9520 #### [facility] [address] [place], [address] RBC (Bld) [#/Vol] 4.18 10*6/uL Low 4.6-6.2 [facility] Comment on above: Order Comment: Order Date: 04/28/24 Order Info: 0786-1 - CMP Order Info: 51835-8 - LIPID Order Info: 4 - URIC Order Info: 2776-05 - PHOS Order Info: 92415-7 - MG Order Info: 3015-07 - TSH Order Info: 2499-11 - TIBC Order Info: 2497-08 - FE Order Info: 2275-08 - AG Order Info: 2283-12 - FOLS N Performed By: #### L 503.6150, L506.1000, L506.0250, L501.5200, L501.2300, L500.4100, L509.1000, L500.4050, L503.0105, L503.6075, L100.0100, L503.6550, L501.9520 #### [facility] [address] [place], [place], [address] RDW SD 48.0 fl High 35.1-43.9 [facility] Comment on above: Order Comment: Order Date: 04/28/24 Order Info: 0786-1 - CMP Order Info: 92753-1 - LIPID Order Info: 3083-05 - URIC Order Info: 2776-05 - PHOS Order Info: 20255-1 - MG Order Info: 3015-07 - TSH Order Info: 2499-11 - TIBC Order Info: 2497-08 - FE Order Info: 2275-08 - AG Order Info: 2283-12 - FOLS N Performed By: #### L 503.6150, L506.1000, L506.0250, L501.5200, L501.2300, L500.4100, L509.1000, L500.4050, L503.0105, L503.6075, L100.0100, L503.6550, L501.9520 #### [facility] [address] [place], [place], [address] WBC (Bld) [#/Vol] 8.8 10*3/uL Normal 4.4-11.0 [facility] Comment on above: Order Comment: Order Date: 04/28/24 Order Info: 785-1 - CMP Order Info: 28947-9 - LIPID Order Info: 4 - URIC Order Info: 2776-05 - PHOS Order Info: 28924-4 - MG Order Info: 3 - TSH Order Info: 2499-11 - TIBC Order Info: 2497-08 - FE Order Info: 2275-08 - AG Order Info: 2283-12 - FOLS N Performed By: #### L 503.8850, L506.1000, L506.0250, L501.5200, L501.2300, L500.4100, L509.1000, L500.4050, L503.0105, L503.6075, L100.0100, L503.6550, L501.9520 #### [facility] [place], [address] Calculated very low density lipoprotein (VLDL) cholesterol measurementOrdered By: Finn Ferrell on 01-15-2025 Calculated very low density lipoprotein (VLDL) cholesterol measurement 33 mg/dL 5-40 [facility] Carbon dioxide, total [Moles /volume] in Central venous bloodOrdered By: Finn Ferrell on 01-15-2025 CO2 [Moles/Vol] 24.0 mmol/L 21.0-32.0 [facility] Chloride assayOrdered By: Tanika Ferrell on 01-15-2025 Chloride [Moles/Vol] 104 mmol/L 98-108 [facility] Comprehensive Metabolic Prof ilon 01-15-2025 Albumin [Mass/Vol] 4.3 g/dL Normal 3.4-4.8 [facility] Comment on above: Order Comment: Order Date: 04/28/24 Order Info: 07- - CMP Order Info: 65155-0 - LIPID Order Info: 3083-05 - URIC Order Info: 2776-05 - PHOS Order Info: 10537-2 - MG Order Info: 3015-07 - TSH Order Info: 2499-11 - TIBC Order Info: 2497-08 - FE Order Info: 2275-08 AG Order Info: 2283-12 - FOLS N Performed By: #### L 503.6150, L506.1000, L506.0250, L501.5200, L501.2300, L500.4100, L509.1000, L500.4050, L503.0105, L503.6075, L100.0100, L503.6550, L501.9520 #### [facility] [address] [place], [place], [address] Albumin/Globulin [Mass ratio] 1.5 {ratio} Normal 0.9-2.4 [facility] Comment on above: Order Comment: Order Date: 04/28/24 Order Info: 07- - CMP Order Info: - LIPID Order Info: 3083-05 - URIC Order Info: 2776-05 - PHOS Order Info: 30165-7 - MG Order Info: 3015-07 - TSH Order Info: 2499-11 TIBC Order Info: 2497-08 - FE Order Info: 2275-08 - AG Order Info: 2283-12 - FOLS N Performed By: #### L 503.6150, L506.1000, L506.0250, L501.5200, L501.2300, L500.4100, L509.1000, L500.4050, L503.0105, L503.6075, L100.0100, L503.6550, L501.9520 #### [facility] [address] [place], [place], [address] ALK PHOS 94 U/L Normal 40-129 [facility] Comment on above: Order Comment: Order Date: 04/28/24 Order Info: 785-1 - CMP Order Info: 77187-0 - LIPID Order Info: 3083-1 - URIC Order Info: 7-1 - PHOS Order Info: 84642-7 - MG Order Info: 3 - TSH Order Info: 2499-11 - TIBC Order Info: 2497-08 - FE Order Info: 2275-08 - AG Order Info: 2283-12 - FOLS N Performed By: #### L 503.6150, L506.1000, L506.0250, L501.5200, L501.2300, L500.4100, L509.1000, L500.4050, L503.0105, L503.6075, L100.0100, L503.6550, L501.9520 #### [facility] [address] [place], [place], [address] ALT [Catalytic activity/Vol] 29 U/L Normal <=46 [facility] Comment on above: Order Comment: Order Date: 04/28/24 Order Info: 785-05 - CMP Order Info: - LIPID Order Info: 3083-05 - URIC Order Info: 2776-05 - PHOS Order Info: 66483-4 - MG Order Info: 3015-07 - TSH Order Info: 2499-11 TIBC Order Info: 2497-08 - FE Order Info: 2275-08 - AG Order Info: 2283-12 - FOLS N Performed By: #### L 503.6150, L506.1000, L506.0250, L501.5200, L501.2300, L500.4100, L509.1000, L500.4050, L503.0105, L503.6075, L100.0100, L503.6550, L501.9520 #### [facility] [address] [place], [place], [address] AST [Catalytic activity/Vol] 19 U/L Normal <=37 [facility] Comment on above: Order Comment: Order Date: 04/28/24 Order Info: 785-05 - CMP Order Info: - LIPID Order Info: 3083-05 - URIC Order Info: 2776-05 - PHOS Order Info: 70019-1 - MG Order Info: 3015-07 - TSH Order Info: 2499-11 TIBC Order Info: 2497-08 - FE Order Info: 2275-08 - AG Order Info: 2283-12 - FOLS N Performed By: #### L 503.6150, L506.1000, L506.0250, L501.5200, L501.2300, L500.4100, L509.1000, L500.4050, L503.0105, L503.6075, L100.0100, L503.6550, L501.9520 #### [facility] [address] [place], [address] Bilirubin [Mass/Vol] 0.93 mg/dL Normal 0.00-1.30 [facility] Comment on above: Order Comment: Order Date: 04/28/24 Order Info: 785- - CMP Order Info: - LIPID Order Info: 3083-05 - URIC Order Info: 2776-05 - PHOS Order Info: 49038-7 - MG Order Info: 3015-07 - TSH Order Info: 2499-11 TIBC Order Info: 2497-08 - FE Order Info: 2275-08 - AG Order Info: 2283-12 - FOLS N Performed By: #### L 503.6150, L506.1000, L506.0250, L501.5200, L501.2300, L500.4100, L509.1000, L500.4050, L503.0105, L503.6075, L100.0100, L503.6550, L501.9520 #### [facility] [address] [place], [address] BUN/CRE 13.0 RATIO Normal 10-20 [facility] Comment on above: Order Comment: Order Date: 04/28/24 Order Info: 785-05 - CMP Order Info: - LIPID Order Info: [id number] - URIC Order Info: 2776-05 - PHOS Order Info: 50979-9 - MG Order Info: 3 - TSH Order Info: 2499-11 - TIBC Order Info: 2497-08 - FE Order Info: 2275-08 - AG Order Info: 2283-12 - FOLS N Performed By: #### L 503.6150, L506.1000, L506.0250, L501.5200, L501.2300, L500.4100, L509.1000, L500.4050, L503.0105, L503.6075, L100.0100, L503.6550, L501.9520 #### [facility] [address] [place], [address] Calcium [Mass/Vol] 9.5 mg/dL Normal 7.6-11.0 [facility] Comment on above: Order Comment: Order Date: 04/28/24 Order Info: 0786-1 - CMP Order Info: 64726-6 - LIPID Order Info: 3083-05 - URIC Order Info: 2776-05 - PHOS Order Info: 04572-7 - MG Order Info: 3 - TSH Order Info: 2499-11 - TIBC Order Info: 2497-08 - FE Order Info: 2275-08 - AG Order Info: 2283-12 - FOLS N Performed By: #### L 503.6150, L506.1000, L506.0250, L501.5200, L501.2300, L500.4100, L509.1000, L500.4050, L503.0105, L503.6075, L100.0100, L503.6550, L501.9520 #### [facility] [address] [place], [address] Chloride [Moles/Vol] 104 mmol/L Normal 98-108 [facility] Comment on above: Order Comment: Order Date: 04/28/24 Order Info: 0786-1 - CMP Order Info: 11342-8 - LIPID Order Info: 3083-05 - URIC Order Info: 2776-05 - PHOS Order Info: 13631-3 - MG Order Info: 3015-07 - TSH Order Info: 2499-11 - TIBC Order Info: 2497-08 - FE Order Info: 2275-08 - AG Order Info: 2283-12 - FOLS N Performed By: #### L 503.6150, L506.1000, L506.0250, L501.5200, L501.2300, L500.4100, L509.1000, L500.4050, L503.0105, L503.6075, L100.0100, L503.6550, L501.9520 #### [facility] [address] [place], [place], [id number] CO2 [Moles/Vol] 24.0 mmol/L Normal 21.0-32.0 [facility] Comment on above: Order Comment: Order Date: 04/28/24 Order Info: 0786- - CMP Order Info: 82863-5 - LIPID Order Info: 3083-05 - URIC Order Info: 2776-05 - PHOS Order Info: 14836-1 - MG Order Info: 3015-07 - TSH Order Info: 2499-11 - TIBC Order Info: 2497-08 - FE Order Info: 2275-08 - AG Order Info: 2283-12 - FOLS N Performed By: #### L 503.6150, L506.1000, L506.0250, L501.5200, L501.2300, L500.4100, L509.1000, L500.4050, L503.0105, L503.6075, L100.0100, L503.6550, L501.9520 #### [facility] [address] [place], [place], [id number] Creatinine [Mass/Vol] 1.63 mg/dL High 0.70-1.20 [facility] Comment on above: Order Comment: Order Date: 04/28/24 Order Info: 0786 - CMP Order Info: 61741-7 - LIPID Order Info: 3083-05 - URIC Order Info: 2776-05 - PHOS Order Info: 80025-3 - MG Order Info: 3015-07 - TSH Order Info: 2499-11 - TIBC Order Info: 2497-08 - FE Order Info: 2275-08 - AG Order Info: 2283-12 - FOLS N Performed By: #### L 503.6150, L506.1000, L506.0250, L501.5200, L501.2300, L500.4100, L509.1000, L500.4050, L503.0105, L503.6075, L100.0100, L503.6550, L501.9520 #### [facility] [address] [place], [place], [id number] GAP 13 Normal 5-15 [facility] Comment on above: Order Comment: Order Date: 04/28/24 Order Info: 785- - CMP Order Info: - LIPID Order Info: 3083-05 - URIC Order Info: 2776-05 - PHOS Order Info: 17544-9 - MG Order Info: 3015-07 - TSH Order Info: 2499-11 - TIBC Order Info: 2497-08 - FE Order Info: 2275-08 - AG Order Info: 2283-12 - FOLS N Performed By: #### L 503.6150, L506.1000, L506.0250, L501.5200, L501.2300, L500.4100, L509.1000, L500.4050, L503.0105, L503.6075, L100.0100, L503.6550, L501.9520 #### [facility] [address] [place], [address] GFR/1.73 sq M.predicted among non-blacks MDRD (S/P/Bld) [Vol rate/Area] 45 mL/min/{1.73_m2} Low >60 [facility] Comment on above: Order Comment: Order Date: 04/28/24 Order Info: 785-05 - CMP Order Info: - LIPID Order Info: 3083-05 - URIC Order Info: 2776-05 - PHOS Order Info: 50366-3 - MG Order Info: 3015-07 - TSH Order Info: 2499-11 - TIBC Order Info: 2497-08 - FE Order Info: 2275-08 - AG Order Info: 2283-12 - FOLS N Result Comment: mL/m in/1.73m2 CKD-EPI Creatinine Equation (2020) Performed By: #### L 503.6150, L506.1000, L506.0250, L501.5200, L501.2300, L500.4100, L509.1000, L500.4050, L503.0105, L503.6075, L100.0100, L503.6550, L501.9520 #### [facility] [address] [place], [place], [id number] Globulin (S) [Mass/Vol] 2.9 g/dL Normal 2.2-4.2 [facility] Comment on above: Order Comment: Order Date: 04/28/24 Order Info: 785- - CMP Order Info: - LIPID Order Info: 3083-05 - URIC Order Info: 2776-05 - PHOS Order Info: 13383-5 - MG Order Info: 3 - TSH Order Info: 2499-11 - TIBC Order Info: 2497-08 - FE Order Info: 2275-08 - AG Order Info: 2283-12 - FOLS N Performed By: #### L 503.6150, L506.1000, L506.0250, L501.5200, L501.2300, L500.4100, L509.1000, L500.4050, L503.0105, L503.6075, L100.0100, L503.6550, L501.9520 #### [facility] [address] [place], [place], [address] Glucose [Mass/Vol] 122 mg/dL High 70-99 [facility] Comment on above: Order Comment: Order Date: 04/28/24 Order Info: 785-05 - CMP Order Info: - LIPID Order Info: 3083-05 - URIC Order Info: 2776-05 - PHOS Order Info: 51147-3 - MG Order Info: 3015-07 - TSH Order Info: 2499-11 - TIBC Order Info: 2497-08 - FE Order Info: 2275-08 - AG Order Info: 2283-12 - FOLS N Performed By: #### L 503.6150, L506.1000, L506.0250, L501.5200, L501.2300, L500.4100, L509.1000, L500.4050, L503.0105, L503.6075, L100.0100, L503.6550, L501.9520 #### [facility] [address], [address] Potassium [Moles/Vol] 4.3 mmol/L Normal 3.3-5.1 [facility] Comment on above: Order Comment: Order Date: 04/28/24 Order Info: 0786-1 - CMP Order Info: 79666-5 - LIPID Order Info: 3083-05 - URIC Order Info: 2776-05 - PHOS Order Info: 45892-8 - MG Order Info: 3015-07 - TSH Order Info: 2499-11 - TIBC Order Info: 2497-08 - FE Order Info: 2275-08 - AG Order Info: 2283-12 - FOLS N Performed By: #### L 503.6150, L506.1000, L506.0250, L501.5200, L501.2300, L500.4100, L509.1000, L500.4050, L503.0105, L503.6075, L100.0100, L503.6550, L501.9520 #### [facility] [address] [place], [place], [id number] Sodium [Moles/Vol] 140 mmol/L Normal 133-145 [facility] Comment on above: Order Comment: Order Date: 04/28/24 Order Info: 0786- - CMP Order Info: 59325-3 - LIPID Order Info: 3083-05 - URIC Order Info: 2776-05 - PHOS Order Info: 57695-5 - MG Order Info: 3 - TSH Order Info: 2499-11 - TIBC Order Info: 2497-08 - FE Order Info: 2275-08 - AG Order Info: 2283-12 - FOLS N Performed By: #### L 503.6150, L506.1000, L506.0250, L501.5200, L501.2300, L500.4100, L509.1000, L500.4050, L503.0105, L503.6075, L100.0100, L503.6550, L501.9520 #### [facility] [address] [place], [place], [address] T PROT 7.2 g/dL Normal 5.9-8.4 [facility] Comment on above: Order Comment: Order Date: 04/28/24 Order Info: 0786- - CMP Order Info: 16308-7 - LIPID Order Info: 3084- - URIC Order Info: 2776-05 - PHOS Order Info: 22674-1 - MG Order Info: 3015-07 - TSH Order Info: 2499-11 - TIBC Order Info: 2497-08 - FE Order Info: 2275-08 - AG Order Info: 8 - FOLS N Performed By: #### L 503.6150, L506.1000, L506.0250, L501.5200, L501.2300, L500.4100, L509.1000, L500.4050, L503.0105, L503.6075, L100.0100, L503.6550, L501.9520 #### [facility] [address] [place], [place], [address] Urea nitrogen [Mass/Vol] 21 mg/dL High 4-19 [facility] Comment on above: Order Comment: Order Date: 04/28/24 Order Info: 0786 - CMP Order Info: 97592-3 - LIPID Order Info: 3084- - URIC Order Info: 2776-05 - PHOS Order Info: 89145-0 - MG Order Info: 3 - TSH Order Info: 2499-11 - TIBC Order Info: 2497-08 - FE Order Info: 2275-08 - AG Order Info: 8 - FOLS N Performed By: #### L 503.6150, L506.1000, L506.0250, L501.5200, L501.2300, L500.4100, L509.1000, L500.4050, L503.0105, L503.6075, L100.0100, L503.6550, L501.9520 #### [facility] [address] [place], [address] Eosinophil percentageOrdered By: Finn Ferrell on 01-15-2025 Eosinophils/100 WBC (Bld) 0.8 % 0-5 [facility] Erythrocyte distribution wid th ratioOrdered By: Finn Ferrell on 01-15-2025 Erythrocyte distribution width (RBC) [Ratio] 14.1 % 11.6-14.6 [facility] Erythrocyte distribution wid th standard deviationOrdered By: Finn Ferrell on 01-15-2025 Erythrocyte distribution width (RBC) [Ratio] 48.0 fl High 35.1-43.9 [facility] Glomerular filtration rate ( GFR) estimation/1.73 sq m using serum, plasma, or whole bOrdered By: Finn Ferrell on 01-15-2025 GFR/1.73 sq M.predicted among non-blacks MDRD (S/P/Bld) [Vol rate/Area] 45 mL/min/{1.73_m2} Low >60 [facility] Comment on above: mL/min/1.73m2 CKD-EP I Creatinine Equation (2020) Hematocrit Auto (Bld) [Volum e fraction]Ordered By: Finn Ferrell on 01-15-2025 Hematocrit (Bld) [Volume fraction] 39.2 % Low 40-54 [facility] Hemoglobin measurementOrdere d By: Finn Ferrell on 01-15-2025 Hemoglobin (Bld) [Mass/Vol] 12.7 g/dL Low 13.0-16.5 [facility] Immature granulocytes/100 WB C Auto (Bld)Ordered By: Finn Ferrell on 01-15-2025 Immature granulocytes/100 WBC (Bld) 0.800 % 0.0-0.9 [facility] Comment on above: IG% - Immature Granu locytes (promyelocytes, myelocytes and metamyelocytes) > 1% indicates that a LEFT SHIFT is Present. Iron measurement (mass/mass) Ordered By: Finn Ferrell on 01-15-2025 Iron (Unsp spec) [Mass/Mass] 114 ug/dL 65-175 [facility] LDL calc ser/plasOrdered By: Finn Ferrell on 01-15-2025 Cholesterol in LDL [Mass/Vol] 58 mg/dL [facility] Comment on above: Jdozvxqxnm=115-877 m g/dL & Higher Nnma=629 mg/dL or greaterFriedwald Equation for LDL-C Laboratory - Chemistry and C hemistry - challengeOrdered By: Finn Ferrell on 01-15-2025 AST [Catalytic activity/Vol] 19 U/L <38 [facility] Lipid Profileon 01-15-2025 CHOL:HDL 2.84 Normal [facility] Comment on above: Order Comment: Order Date: 04/28/24 Order Info: 0786- - CMP Order Info: - LIPID Order Info: 3083-05 - URIC Order Info: 2776-05 - PHOS Order Info: 46127-0 - MG Order Info: 3 - TSH Order Info: 2499-11 - TIBC Order Info: 2497-08 FE Order Info: 2275-08 - AG Order Info: 2283-12 - FOLS N Performed By: #### L 503.6150, L506.1000, L506.0250, L501.5200, L501.2300, L500.4100, L509.1000, L500.4050, L503.0105, L503.6075, L100.0100, L503.6550, L501.9520 #### [facility] [address] [place], [place], [address] Cholesterol [Mass/Vol] 141 mg/dL Normal <=200 [facility] Comment on above: Order Comment: Order Date: 04/28/24 Order Info: 0786 - CMP Order Info: - LIPID Order Info: 3083-05 - URIC Order Info: 2776-05 - PHOS Order Info: 97021-0 - MG Order Info: 3 - TSH Order Info: 2499-11 - TIBC Order Info: 2497-08 - FE Order Info: 2275-08 - AG Order Info: 2283-12 - FOLS N Result Comment: Chol esterol level, Desirable <200 mg/dL Borderline high cholesterol 200-239 mg/dL High cholesterol >=240 mg/dL Recommendations of the NCEP Adult Treatment Panel for the following risk-cutoff thresholds for the [place] population. Performed By: #### L 503.6150, L506.1000, L506.0250, L501.5200, L501.2300, L500.4100, L509.1000, L500.4050, L503.0105, L503.6075, L100.0100, L503.6550, L501.9520 #### [facility] [address] [place], [address] Cholesterol in HDL [Mass/Vol] 50 mg/dL Normal [facility] Comment on above: Order Comment: Order Date: 04/28/24 Order Info: 0786- - CMP Order Info: 79430-0 - LIPID Order Info: 30808-22 - URIC Order Info: 2776-05 - PHOS Order Info: 75307-7 - MG Order Info: 3 - TSH Order Info: 2499-11 - TIBC Order Info: 2498- - FE Order Info: 2275-08 - AG Order Info: 22808-29 - FOLS N Result Comment: Lisa onal Cholesterol Education Program (NCEP) guidelines: <40 mg/dL: Low HDL-cholesterol (major risk factor for CHD) >= 60 mg/dL: High HDL-cholesterol (negative risk factor for CHD) HDL-cholesterol is affected by a number of factors, e.g. smoking, exercise, hormones, sex and age. Performed By: #### L 503.6150, L506.1000, L506.0250, L501.5200, L501.2300, L500.4100, L509.1000, L500.4050, L503.0105, L503.6075, L100.0100, L503.6550, L501.9520 #### [facility] [address] [place], [address] Cholesterol in LDL [Mass/Vol] 58 mg/dL Normal [facility] Comment on above: Order Comment: Order Date: 04/28/24 Order Info: 0786- - CMP Order Info: 76450-7 - LIPID Order Info: 3084- - URIC Order Info: 7 - PHOS Order Info: 04604-5 - MG Order Info: 3015-07 - TSH Order Info: 2499-11 - TIBC Order Info: 2497-08 - FE Order Info: 2275-08 - AG Order Info: 2283-12 - FOLS N Result Comment: Bord liyxar=290-595 mg/dL Higher Fzim=949 mg/dL or greater Friedwald Equation for LDL-C Performed By: #### L 503.6150, L506.1000, L506.0250, L501.5200, L501.2300, L500.4100, L509.1000, L500.4050, L503.0105, L503.6075, L100.0100, L503.6550, L501.9520 #### [facility] [address] [place], [address] Cholesterol in VLDL [Mass/Vol] 33 mg/dL Normal 5-40 [facility] Comment on above: Order Comment: Order Date: 04/28/24 Order Info: 0786- - CMP Order Info: 63644-2 - LIPID Order Info: 3083- - URIC Order Info: 2776- - PHOS Order Info: 54765-5 - MG Order Info: 3 - TSH Order Info: 2499-11 - TIBC Order Info: 2497-08 - FE Order Info: 2275-08 - AG Order Info: 2283-12 - FOLS N Performed By: #### L 503.6150, L506.1000, L506.0250, L501.5200, L501.2300, L500.4100, L509.1000, L500.4050, L503.0105, L503.6075, L100.0100, L503.6550, L501.9520 #### [facility] [address] [place], [address] Triglyceride [Mass/Vol] 167 mg/dL Normal [facility] Comment on above: Order Comment: Order Date: 04/28/24 Order Info: 0786-1 - CMP Order Info: 90349-9 - LIPID Order Info: 3084-1 - URIC Order Info: 2777-1 - PHOS Order Info: 23589-6 - MG Order Info: 3015-07 - TSH Order Info: 2499-11 - TIBC Order Info: 2497-08 - FE Order Info: 2275-08 - AG Order Info: 2283-12 - FOLS N Result Comment: The drugs N-Acetylcysteine and Metamizole may falsely depress this assay. Normal range: <150 mg/dL Borderline High: 150-199 mg/dL High: 200-499 mg/dL Very High: >500 mg/dL Performed By: #### L 503.6150, L506.1000, L506.0250, L501.5200, L501.2300, L500.4100, L509.1000, L500.4050, L503.0105, L503.6075, L100.0100, L503.6550, L501.9520 #### [facility] [address] [place], [place], [id number] MCV (mean corpuscular volume ) determinationOrdered By: Finn Ferrell on 01-15-2025 MCV (RBC) [Entitic vol] 93.8 fL 80-94 [facility] Magnesiumon 01-15-2025 Magnesium [Mass/Vol] 2.2 mg/dL Normal 1.5-2.2 [facility] Comment on above: Order Comment: Order Date: 04/28/24 Order Info: 0786-1 - CMP Order Info: 72422-1 - LIPID Order Info: 3084-1 - URIC Order Info: 2777-1 - PHOS Order Info: 93302-5 - MG Order Info: 3015-07 - TSH Order Info: 2499-11 - TIBC Order Info: 2497-08 - FE Order Info: 2275-08 - AG Order Info: 2283-12 - FOLS N Performed By: #### L 503.6150, L506.1000, L506.0250, L501.5200, L501.2300, L500.4100, L509.1000, L500.4050, L503.0105, L503.6075, L100.0100, L503.6550, L501.9520 #### [facility] [address] [place], [address] Magnesium measurement (mass/ volume)Ordered By: Finn Ferrell on 01-15-2025 Magnesium (Unsp spec) [Mass/Vol] 2.2 mg/dL 1.5-2.2 [facility] Mean corpuscular hemoglobin (MCH) determinationOrdered By: Finn Ferrell on 01-15-2025 MCH (RBC) [Entitic mass] 30.4 pg 27.0-32.0 [facility] Mean corpuscular hemoglobin concentration (MCHC) determinationOrdered By: Finn Ferrell on 01-15-2025 MCHC (RBC) [Mass/Vol] 32.4 g/dL 32-36 [facility] Mean platelet volume determi nationOrdered By: Finn Ferrell on 01-15-2025 Platelet mean volume (Bld) [Entitic vol] 9.6 fL 6.2-12.0 [facility] Monocyte percentageOrdered B y: Finn Ferrell on 01-15-2025 Monocytes/100 WBC (Bld) 5.7 % 0-10 [facility] Neutrophil percentageOrdered By: Finn Ferrell on 01-15-2025 Neutrophils/100 WBC (Bld) 71.1 % High 47-70 [facility] No Panel InformationOrdered By: Finn Ferrell on 01-15-2025 Unsaturated Iron Binding Capacity 171 ug/dL Low 228-428 [facility] Nucleated red blood cell per centageOrdered By: Finn Ferrell on 01-15-2025 Nucleated RBC/100 WBC (Bld) [Ratio] 0 % 0-5 [facility] PTHINon 01-15-2025 PTH 55 pg/mL Normal 11-61 [facility] Comment on above: Order Comment: Order Date: 04/28/24 Order Info: 0786-1 - CMP Order Info: 51885-4 - LIPID Order Info: 3084-1 - URIC Order Info: 2777-1 - PHOS Order Info: 16654-3 - MG Order Info: 3016-3 - TSH Order Info: 2500-7 - TIBC Order Info: 9524 - FE Order Info: 8194 - AG Order Info: 2598 - FOLS N Performed By: #### L 503.6150, L506.1000, L506.0250, L501.5200, L501.2300, L500.4100, L509.1000, L500.4050, L503.0105, L503.6075, L100.0100, L503.6550, L501.9520 #### [facility] [address] [place], [address] Platelet countOrdered By: Tanika Ferrell on 01-15-2025 Platelets (Bld) [#/Vol] 257 10*3/uL 150-450 [facility] Potassium measurement (mass/ volume)Ordered By: Finn Ferrell on 01-15-2025 Potassium (Unsp spec) [Mass/Vol] 4.3 mmol/L 3.3-5.1 [facility] Protein+Creatinine Ratio,Uri neon 01-15-2025 PROT:CRE RATIO 126 mg/g CRE Normal 0-200 [facility] Comment on above: Order Comment: Order Date: 04/28/24 Order Info: 0565-1 - PTHIN Performed By: #### L 503.6150, L506.1000, L506.0250, L501.5200, L501.2300, L500.4100, L509.1000, L500.4050, L503.0105, L503.6075, L100.0100, L503.6550, L501.9520 #### [facility] [address] [place], [address] PROTEIN,UR.RAN. < 6.0 Normal 0.0-12.0 [facility] Comment on above: Order Comment: Order Date: 04/28/24 Order Info: 0565-1 - PTHIN Performed By: #### L 503.6150, L506.1000, L506.0250, L501.5200, L501.2300, L500.4100, L509.1000, L500.4050, L503.0105, L503.6075, L100.0100, L503.6550, L501.9520 #### [facility] [address] [place], [place], [address] UR CREAT 17.90 mg/dL Low 39.00-259. 00 [facility] Comment on above: Order Comment: Order Date: 04/28/24 Order Info: 0565-1 - PTHIN Performed By: #### L 503.6150, L506.1000, L506.0250, L501.5200, L501.2300, L500.4100, L509.1000, L500.4050, L503.0105, L503.6075, L100.0100, L503.6550, L501.9520 #### [facility] [address] [place], [address] RBC Auto (Bld) [#/Vol]Ordere d By: Finn Ferrell on 01-15-2025 RBC (Bld) [#/Vol] 4.18 10*6/uL Low 4.6-6.2 [facility] Random urine creatinine renu urement (mass/volume)Ordered By: Finn Ferrell on 01-15-2025 Creatinine Unsp time (U) [Mass/Vol] 17.90 mg/dL Low 39.00-259. 00 [facility] Screening total cholesterol/ high density lipoprotein (HDL) cholesterol ratioOrdered By: Finn Ferrell on 01-15-2025 Cholesterol.total/Chol esterol in HDL [Mass ratio] 2.84 {ratio} [facility] Serum creatinine measurement (mass/volume)Ordered By: Finn Ferrell on 01-15-2025 Creatinine [Mass/Vol] 1.63 mg/dL High 0.70-1.20 [facility] Serum globulin measurementOr dered By: Finn Ferrell on 01-15-2025 Globulin (S) [Mass/Vol] 2.9 g/dL 2.2-4.2 [facility] Serum glucose measurement (m ass/volume)Ordered By: Finn Ferrell on 01-15-2025 Glucose [Mass/Vol] 122 mg/dL High 70-99 [facility] Serum or plasma alanine newman otransferase (ALT) measurementOrdered By: Finn Ferrell on 01-15-2025 ALT [Catalytic activity/Vol] 29 U/L <47 [facility] Serum or plasma albumin renu urement (mass/volume)Ordered By: Finn Ferrell on 01-15-2025 Albumin [Mass/Vol] 4.3 g/dL 3.4-4.8 [facility] Serum or plasma albumin/glob ulin mass ratioOrdered By: Finn Ferrell on 01-15-2025 Albumin/Globulin [Mass ratio] 1.5 {ratio} 0.9-2.4 [facility] Serum or plasma alkaline christal sphatase measurementOrdered By: Finn Ferrell on 01-15-2025 ALP [Catalytic activity/Vol] 94 U/L 40-129 [facility] Serum or plasma calcium renu urement (mass/volume)Ordered By: Finn Ferrell on 01-15-2025 Calcium [Mass/Vol] 9.5 mg/dL 7.6-11.0 [facility] Serum or plasma cholesterol in HDL measurement (mass/volume)Ordered By: Finn Ferrell on 01-15-2025 Cholesterol in HDL [Mass/Vol] 50 mg/dL >40 [facility] Comment on above: National Cholesterol Education Program (NCEP) guidelines:<40 mg/dL: Low HDL-cholesterol (major risk factor for CHD)>= 60 mg/dL: High HDL-cholesterol (negative risk factor for CHD)HDL-cholesterol is affected by a number of factors, e.g. smoking, exercise, hormones, sex and age. Serum or plasma cholesterol measurement (mass/volume)Ordered By: Finn Ferrell on 01-15-2025 Cholesterol [Mass/Vol] 141 mg/dL <201 [facility] Comment on above: Cholesterol level, D esirable <200 mg/dLBorderline high cholesterol 200-239 mg/dLHigh cholesterol >=240 mg/dLRecommendations of the NCEP Adult Treatment Panel for the following risk-cutoff thresholds for the [place] population. Serum or plasma ferritin ellen surement (mass/volume)Ordered By: Finn Ferrell on 01-15-2025 Ferritin [Mass/Vol] 606 ng/mL High 37-417 [facility] Serum or plasma iron saturat ion measurement (mass fraction)Ordered By: Finn Ferrell on 01-15-2025 Iron saturation [Mass fraction] 40.0 % 9-55 [facility] Serum or plasma urea nitroge n measurement (mass/volume)Ordered By: Finn Ferrell on 01-15-2025 Urea nitrogen [Mass/Vol] 21 mg/dL High 4-19 [facility] Serum or plasma uric acid me asurement (mass/volume)Ordered By: Finn Ferrell on 01-15-2025 Urate [Mass/Vol] 7.9 mg/dL High 3.5-7.2 [facility] Comment on above: The drugs N-Acetylcy steine and Metamizole may falsely depress this assay. Sodium levelOrdered By: Finn Ferrell on 01-15-2025 Sodium [Moles/Vol] 140 mmol/L 133-145 [facility] TSH DL <= 0.005 mIU/L QnOrde red By: Finn Ferrell on 01-15-2025 TSH Qn 1.480 uIU/mL 0.300-4.20 0 [facility] Thyroid Stim Hormone (TSH)on 01-15-2025 TSH 1.480 uIU/mL Normal 0.300-4.20 0 [facility] Comment on above: Order Comment: Order Date: 04/28/24 Order Info: 0786-1 - CMP Order Info: [id number] - LIPID Order Info: 3084-1 - URIC Order Info: 2777-1 - PHOS Order Info: 56847-5 - MG Order Info: 3016-3 - TSH Order Info: 2500-7 - TIBC Order Info: 2498-4 - FE Order Info: 2276-4 - AG Order Info: 2284-8 - FOLS N Performed By: #### L 503.6150, L506.1000, L506.0250, L501.5200, L501.2300, L500.4100, L509.1000, L500.4050, L503.0105, L503.6075, L100.0100, L503.6550, L501.9520 #### [facility] [place], [address] Total proteinOrdered By: Benedicto Ferrell on 01-15-2025 Protein [Mass/Vol] 7.2 g/dL 5.9-8.4 [facility] Triglycerides measurementOrd ered By: Finn Ferrell on 01-15-2025 Triglyceride [Mass/Vol] 167 mg/dL <199 [facility] Comment on above: The drugs N-Acetylcy steine and Metamizole may falsely depress this assay. Normal range: <150 mg/dLBorderline High: 150-199 mg/dLHigh: 200-499 mg/dLVery High: >500 mg/dL Uric Acidon 01-15-2025 URIC 7.9 mg/dL High 3.5-7.2 [facility] Comment on above: Order Comment: Order Date: 04/28/24 Order Info: 0786-1 - CMP Order Info: 25664-6 - LIPID Order Info: 3084-1 - URIC Order Info: 2777-1 - PHOS Order Info: 50339-3 - MG Order Info: 3016-3 - TSH Order Info: 2500-7 - TIBC Order Info: 2498-4 - FE Order Info: 2276-4 - AG Order Info: 2284-8 - FOLS N Result Comment: The drugs N-Acetylcysteine and Metamizole may falsely depress this assay. Performed By: #### L 503.6150, L506.1000, L506.0250, L501.5200, L501.2300, L500.4100, L509.1000, L500.4050, L503.0105, L503.6075, L100.0100, L503.6550, L501.9520 #### [facility] [address] [place], [address] Urine protein measurement (m ass/volume)Ordered By: Finn Ferrell on 01-15-2025 Protein (U) [Mass/Vol] mg/dL 0.0-12.0 [facility] Urine protein/creatinine mas s ratioOrdered By: Finn Ferrell on 01-15-2025 Protein/Creatinine (U) [Mass ratio] 126 mg/g CRE 0-200 [facility] Vitamin D,25 Hydroxyon 01-15 Vitamin D 25-OH 42.1 ng/mL Normal 30-100 [facility] Comment on above: Order Comment: Order Date: 04/28/24 Order Info: [id number] - PTHIN Result Comment: Purnima min D Status Deficiency: <20 ng/mL (50nmol/L) Insufficiency: 20-30 ng/mL (50-75 nmol/L) Sufficiency: 30-100 ng/mL (75-250 nmol/L) Toxicity: >100 ng/mL (>250 nmol/L) Performed By: #### L 503.6150, L506.1000, L506.0250, L501.5200, L501.2300, L500.4100, L509.1000, L500.4050, L503.0105, L503.6075, L100.0100, L503.6550, L501.9520 #### [facility] [address] [place], [address] White blood cell (WBC) count Ordered By: Finn Ferrell on 01-15-2025 WBC (Bld) [#/Vol] 8.8 10*3/uL 4.4-11.0 [facility] 37on 12-28-2024 37 Reduce Imdur 60 mg ( one tablet ) once a day. Normal [facility] Office Visiton 12-28-2024 Follow-up visit [id number] Shannon Olson 1955 M Date Provider Department Center 12/28/2024 [id number] 95 Ar Family History Problem Relation Age of Onset Diabetes Paternal Grandmother Diabetes Maternal Grandfather Cancer Sister Hypertension Mother Diabetes Sister Diabetes Paternal Grandfather Heart disease Paternal Grandmother Heart disease Paternal Grandfather Cancer Father Diabetes Brother Family Status - Relation Status Age at Paternal Grandmother Maternal Grandfather Sister Mother Alive Paternal Grandfather Father Brother Level of Service:36465 DC OFFICE/OUTPATIENT ESTABLISHED MOD MDM 30 MIN Reason for Visit and Comments: Coronary Artery Disease [187] Normal [facility] Progress Noteon 12-28-2024 Progress Note [facility] [address] [place] [address] Dept: [phone] Dept Visit Type: Established NAME: Shannon Olson : 1955 Reason for Visit: Coronary Artery Disease Subjective HPI Shannon Olson is an 69 y.o. male, followed by Dr. Ortega, with [...] spinning. He was discharged the following morning. Since he procedure, he has been doing good. He presents for 3 month follow-up appt. He medications have been reduced, due to resolution of angina. He is scheduled for repeat Echocardigram, prior to his OV with Dr. Ortega in January, to reassess his LV function. Overall he is feeling great. Today at home he weight was down to 287.00 lbs .He has lost 26 lbs with diet and exercise. He is very active, doing yard work, chopping wood with angina. Denies SOB, mild lightheadedness. BP and HR stable at home. He denies any headaches . Allergies[1] Current Outpatient Medications Medication Instructions amiodarone (PACERONE) 200 mg, Oral, Daily amLODIPine (NORVASC) 5 mg, Oral, Daily cholecalciferol (VITAMIN D-3) 800 Units, Daily clopidogrel (PLAVIX) 75 mg, Oral, Daily Eliquis 5 mg, Oral, 2 times daily ezetimibe (ZETIA) 10 mg, Oral, Daily HYDROcodone-acetaminophen ([place]) 5-325 MG tablet 1 tablet, Every 6 hours PRN isosorbide mononitrate ER (IMDUR) 60 mg, Oral, Daily, Do not crush or chew. metoprolol succinate XL (TOPROL-XL) 50 mg, Oral, Daily, Do not crush or chew. nitroglycerin (NITROSTAT) 0.4 mg, SubLINGual, Every 5 min PRN, May repeat dose every 5 minutes for up to 3 doses total. ondansetron ODT (ZOFRAN-ODT) 4 mg, Every 8 hours PRN ranolazine (RANEXA) 500 mg, Oral, 2 times daily, Do not crush, chew, or split. rosuvastatin (CRESTOR) 40 mg, Oral, Daily spironolactone (ALDACTONE) 25 mg, Oral, 2 times daily torsemide (DEMADEX) 20 mg, Oral, 2 times daily Past Medical History: Diagnosis Date Angina pectoris ([facility]) Anxiety Arrhythmia A-fib Asthma CAD (coronary artery disease) Cerebral artery occlusion with cerebral infarction ([facility]) COPD (chronic obstructive pulmonary disease) ([facility]) Depression WATTS (dyspnea on exertion) Fatigue GERD (gastroesophageal reflux disease) History of cardioversion 05/07/2016 Successful conversion of a-fib to SR History of left heart catheterization 05/07/2016 60% stenosis right posterior descending, patent stents in prox, mid & distal RCA, patent stents in med LCx. Findings unchanged from previous study. 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 NSTEMI (non-ST elevated myocardial infarction) ([facility]) 12/2012 NSTEMI (non-ST elevated myocardial infarction) ([facility]) 05/2014 Obesity Old SC (myocardial infarction) HIPOLITO (obstructive sleep apnea) HIPOLITO on CPAP PAF (paroxysmal atrial fibrillation) ([facility]) Rheumatoid arthritis(714.0) ([facility]) ST segment elevation myocardial infarction (STEMI) of anterolateral wall, subsequent episode of care ([facility]) TIA (transient ischemic attack) Social History Tobacco Use Smoking status: Never Smokeless tobacco: Never Substance Use Topics Alcohol use: Not Currently Past Surgical History: Procedure Laterality Date CAPSULOTOMY, HAND 05/07/2016 CARDIAC CATHETERIZATION N/A 03/01/2023 Performed by Zoie Gonzales MD at [facility] Cardiac Cath/EP Lab CARDIAC CATHETERIZATION Left 09/14/2024 Performed by Dominguez Ortega MD at [facility] Cardiac Cath/EP Lab CARDIAC CATHETERIZATION N/A 09/14/2024 Performed by Dominguez Ortega MD at [facility] Cardiac Cath/EP Lab CARDIAC CATHETERIZATION N/A 09/14/2024 Performed by Dominguez Ortega MD at [facility] Cardiac Cath/EP Lab CARDIAC CATHETERIZATION N/A 09/14/2024 Performed by Dominguez Ortega MD at [facility] Cardiac Cath/EP Lab CARDIAC PROCEDURE Left 05/2015 CARDIAC PROCEDURE Left 06/03/2017 CARDIAC PROCEDURE Bilateral 01/2010 CARDIAC PROCEDURE Left 09/05/2019 PCI to distal RCA and PL branch CHOLECYSTECTOMY 10/30/2019 CORONARY ANGIOPLASTY WITH STENT PLACEMENT Left 11/2006 restent RCA, PHU to CX CORONARY ANGIOPLASTY WITH STENT PLACEMENT Left 05/2014 PTCA /cuttung balloon to instent restenosis RCA CORONARY ANGIOPL (more content not included)... Normal [facility] 36on 12-18-2024 36 Attempted to call latia bryant to discuss lab draw. LMOM. Normal [facility] 36on 11-30-2024 36 ISACC E. [place] 09/28/24, CMP completed 09/15/24. 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 Normal [facility] 36 Requesting refill to rsemide (Demadex) 20 MG tablet [place] [facility] verified Normal [facility] Absolute lymphocyte countOrd ered By: Cooper Francis on 11-15-2024 Lymphocytes Auto (Unsp spec) [#/Vol] 2.11 10*3/uL 0.83-4.51 [facility] Absolute neutrophil countOrd ered By: Cooper Francis on 11-15-2024 Neutrophils (Bld) [#/Vol] 11.8 10*3/uL High 2.0-7.7 [facility] Anion gap in Serum or Plasma Ordered By: Finn Ferrell on 11-15-2024 Anion gap [Moles/Vol] 13 mmol/L 10-05 [facility] Anion gap in Serum or Plasma Ordered By: Cooper Francis on 11-15-2024 Anion gap [Moles/Vol] 15 mmol/L 10-05 [facility] Automated lymphocyte count a s percentage of total leukocytesOrdered By: Cooper Francis on 11-15-2024 Lymphocytes/100 WBC Auto (Unsp spec) 13.8 % Low 19-41 [facility] BUN/creatinine ratioOrdered By: Finn Ferrell on 11-15-2024 Urea nitrogen/Creatinine [Mass ratio] 15.5 mg/mg 03-12 [facility] BUN/creatinine ratioOrdered By: Cooper Francis on 11-15-2024 Urea nitrogen/Creatinine [Mass ratio] 13.7 mg/mg 03-12 [facility] Basic Metabolic Profile (BMP )on 11-15-2024 BUN/CRE 13.7 RATIO Normal 03-12 [facility] Comment on above: Performed By: #### L 503.6150, L506.1000, L506.0250, L501.5200, L501.2300, L500.4100, L509.1000, L500.4050, L503.0105, L503.6075, L100.0100, L503.6550, L501.9520 #### [facility] [address] [place], [place], [id number] (752) Calcium [Mass/Vol] 10.1 mg/dL Normal 7.6-11.0 [facility] Comment on above: Performed By: #### L 503.6150, L506.1000, L506.0250, L501.5200, L501.2300, L500.4100, L509.1000, L500.4050, L503.0105, L503.6075, L100.0100, L503.6550, L501.9520 #### [facility] [address] [place], [place], [phone] (678) Chloride [Moles/Vol] 102 mmol/L Normal 98-108 [facility] Comment on above: Performed By: #### L 503.6150, L506.1000, L506.0250, L501.5200, L501.2300, L500.4100, L509.1000, L500.4050, L503.0105, L503.6075, L100.0100, L503.6550, L501.9520 #### [facility] [address] [place], [place], [id number] (719) CO2 [Moles/Vol] 20.3 mmol/L Low 21.0-32.0 [facility] Comment on above: Performed By: #### L 503.6150, L506.1000, L506.0250, L501.5200, L501.2300, L500.4100, L509.1000, L500.4050, L503.0105, L503.6075, L100.0100, L503.6550, L501.9520 #### [facility] [address] [place], [place], [id number] Creatinine [Mass/Vol] 2.38 mg/dL High 0.70-1.20 [facility] Comment on above: Performed By: #### L 503.6150, L506.1000, L506.0250, L501.5200, L501.2300, L500.4100, L509.1000, L500.4050, L503.0105, L503.6075, L100.0100, L503.6550, L501.9520 #### [facility] [address] [place], [place], [id number] ECRCL 43.46 ml/min Low 50-250 [facility] Comment on above: Performed By: #### L 503.6150, L506.1000, L506.0250, L501.5200, L501.2300, L500.4100, L509.1000, L500.4050, L503.0105, L503.6075, L100.0100, L503.6550, L501.9520 #### [facility] [address] [place], [place], [id number] GAP 15 Normal 5-15 [facility] Comment on above: Performed By: #### L 503.6150, L506.1000, L506.0250, L501.5200, L501.2300, L500.4100, L509.1000, L500.4050, L503.0105, L503.6075, L100.0100, L503.6550, L501.9520 #### [facility] [address] [place], [place], [id number] GFR/1.73 sq M.predicted among non-blacks MDRD (S/P/Bld) [Vol rate/Area] 29 mL/min/{1.73_m2} Low >60 [facility] Comment on above: Result Comment: mL/m in/1.73m2 CKD-EPI Creatinine Equation (2020) Performed By: #### L 503.6150, L506.1000, L506.0250, L501.5200, L501.2300, L500.4100, L509.1000, L500.4050, L503.0105, L503.6075, L100.0100, L503.6550, L501.9520 #### [facility] [address] [place], [place], [phone] (624) Glucose [Mass/Vol] 122 mg/dL High 70-99 [facility] Comment on above: Performed By: #### L 503.6150, L506.1000, L506.0250, L501.5200, L501.2300, L500.4100, L509.1000, L500.4050, L503.0105, L503.6075, L100.0100, L503.6550, L501.9520 #### [facility] [address] [place], [place], [phone] (927) Potassium [Moles/Vol] 5.4 mmol/L High 3.3-5.1 [facility] Comment on above: Result Comment: Hemo lysis present, Results??could be affected. ?? Performed By: #### L 503.6150, L506.1000, L506.0250, L501.5200, L501.2300, L500.4100, L509.1000, L500.4050, L503.0105, L503.6075, L100.0100, L503.6550, L501.9520 #### [facility] [address] [place], [address] Sodium [Moles/Vol] 138 mmol/L Normal 133-145 [facility] Comment on above: Performed By: #### L 503.6150, L506.1000, L506.0250, L501.5200, L501.2300, L500.4100, L509.1000, L500.4050, L503.0105, L503.6075, L100.0100, L503.6550, L501.9520 #### [facility] [address] [place], [address] Urea nitrogen [Mass/Vol] 33 mg/dL High 4-19 [facility] Comment on above: Performed By: #### L 503.6150, L506.1000, L506.0250, L501.5200, L501.2300, L500.4100, L509.1000, L500.4050, L503.0105, L503.6075, L100.0100, L503.6550, L501.9520 #### [facility] [address] [place], [place], [id number] Basophil percentageOrdered B y: Cooper Francis on 11-15-2024 Basophils/100 WBC (Bld) 0.5 % 0-1 [facility] Bilirubin, totalOrdered By: Finn Ferrell on 11-15-2024 Bilirubin [Mass/Vol] 1.28 mg/dL 0.00-1.30 [facility] CBC W/Diff, Automatedon 10-23 Absolute Lymph 2.11 X10 3/uL Normal 0.83-4.51 [facility] Comment on above: Performed By: #### L 503.6150, L506.1000, L506.0250, L501.5200, L501.2300, L500.4100, L509.1000, L500.4050, L503.0105, L503.6075, L100.0100, L503.6550, L501.9520 #### [facility] [address] [place], [address] Absolute Neut 11.8 X10 3/uL High 2.0-7.7 [facility] Comment on above: Performed By: #### L 503.6150, L506.1000, L506.0250, L501.5200, L501.2300, L500.4100, L509.1000, L500.4050, L503.0105, L503.6075, L100.0100, L503.6550, L501.9520 #### [facility] [address] [place], [address] Basophils/100 WBC (Bld) 0.5 % Normal 0-1 [facility] Comment on above: Performed By: #### L 503.6150, L506.1000, L506.0250, L501.5200, L501.2300, L500.4100, L509.1000, L500.4050, L503.0105, L503.6075, L100.0100, L503.6550, L501.9520 #### [facility] [address] [place], [address] Eosinophils/100 WBC (Bld) 0.6 % Normal 0-5 [facility] Comment on above: Performed By: #### L 503.6150, L506.1000, L506.0250, L501.5200, L501.2300, L500.4100, L509.1000, L500.4050, L503.0105, L503.6075, L100.0100, L503.6550, L501.9520 #### [facility] [address] [place], [address] Erythrocyte distribution width (RBC) [Ratio] 14.9 % High 11.6-14.6 [facility] Comment on above: Performed By: #### L 503.6150, L506.1000, L506.0250, L501.5200, L501.2300, L500.4100, L509.1000, L500.4050, L503.0105, L503.6075, L100.0100, L503.6550, L501.9520 #### [facility] [address] [place], [address] Hematocrit (Bld) [Volume fraction] 43.4 % Normal 40-54 [facility] Comment on above: Performed By: #### L 503.6150, L506.1000, L506.0250, L501.5200, L501.2300, L500.4100, L509.1000, L500.4050, L503.0105, L503.6075, L100.0100, L503.6550, L501.9520 #### [facility] [address] [place], [address] Hemoglobin (Bld) [Mass/Vol] 14.3 g/dL Normal 13.0-16.5 [facility] Comment on above: Performed By: #### L 503.6150, L506.1000, L506.0250, L501.5200, L501.2300, L500.4100, L509.1000, L500.4050, L503.0105, L503.6075, L100.0100, L503.6550, L501.9520 #### [facility] [address] [facility] [place], [address] IG% 0.700 Normal 0.0-0.9 [facility] Comment on above: Result Comment: IG% - Immature Granulocytes (promyelocytes, myelocytes and metamyelocytes) > 1% indicates that a LEFT SHIFT is Present. Performed By: #### L 503.6150, L506.1000, L506.0250, L501.5200, L501.2300, L500.4100, L509.1000, L500.4050, L503.0105, L503.6075, L100.0100, L503.6550, L501.9520 #### [facility] [address] [place], [address] Lymphocytes/100 WBC (Bld) 13.8 % Low 19-41 [facility] Comment on above: Performed By: #### L 503.6150, L506.1000, L506.0250, L501.5200, L501.2300, L500.4100, L509.1000, L500.4050, L503.0105, L503.6075, L100.0100, L503.6550, L501.9520 #### [facility] [address] [place], [address] MCH (RBC) [Entitic mass] 30.7 pg Normal 27.0-32.0 [facility] Comment on above: Performed By: #### L 503.6150, L506.1000, L506.0250, L501.5200, L501.2300, L500.4100, L509.1000, L500.4050, L503.0105, L503.6075, L100.0100, L503.6550, L501.9520 #### [facility] [address] [place], [address] MCHC (RBC) [Mass/Vol] 32.9 g/dL Normal 32-36 [facility] Comment on above: Performed By: #### L 503.6150, L506.1000, L506.0250, L501.5200, L501.2300, L500.4100, L509.1000, L500.4050, L503.0105, L503.6075, L100.0100, L503.6550, L501.9520 #### [facility] [address] [place], [address] MCV (RBC) [Entitic vol] 93.1 fL Normal 80-94 [facility] Comment on above: Performed By: #### L 503.6150, L506.1000, L506.0250, L501.5200, L501.2300, L500.4100, L509.1000, L500.4050, L503.0105, L503.6075, L100.0100, L503.6550, L501.9520 #### [facility] [address] [place], [address] Monocytes/100 WBC (Bld) 7.0 % Normal 0-10 [facility] Comment on above: Performed By: #### L 503.6150, L506.1000, L506.0250, L501.5200, L501.2300, L500.4100, L509.1000, L500.4050, L503.0105, L503.6075, L100.0100, L503.6550, L501.9520 #### [facility] [address] [facility] [place], [address] Neutrophils/100 WBC (Bld) 77.4 % High 47-70 [facility] Comment on above: Performed By: #### L 503.6150, L506.1000, L506.0250, L501.5200, L501.2300, L500.4100, L509.1000, L500.4050, L503.0105, L503.6075, L100.0100, L503.6550, L501.9520 #### [facility] [address] [place], [place], [phone] (575 Nucleated RBC (Bld) [#/Vol] 0 10*3/uL Normal 0-5 [facility] Comment on above: Performed By: #### L 503.6150, L506.1000, L506.0250, L501.5200, L501.2300, L500.4100, L509.1000, L500.4050, L503.0105, L503.6075, L100.0100, L503.6550, L501.9520 #### [facility] [address] [place], [address] Platelet mean volume (Bld) [Entitic vol] 9.6 fL Normal 6.2-12.0 [facility] Comment on above: Performed By: #### L 503.6150, L506.1000, L506.0250, L501.5200, L501.2300, L500.4100, L509.1000, L500.4050, L503.0105, L503.6075, L100.0100, L503.6550, L501.9520 #### [facility] [address] [place], [address] Platelets (Bld) [#/Vol] 279 10*3/uL Normal 150-450 [facility] Comment on above: Performed By: #### L 503.6150, L506.1000, L506.0250, L501.5200, L501.2300, L500.4100, L509.1000, L500.4050, L503.0105, L503.6075, L100.0100, L503.6550, L501.9520 #### [facility] [address] [place], [place], [phone] (043 RBC (Bld) [#/Vol] 4.66 10*6/uL Normal 4.6-6.2 [facility] Comment on above: Performed By: #### L 503.6150, L506.1000, L506.0250, L501.5200, L501.2300, L500.4100, L509.1000, L500.4050, L503.0105, L503.6075, L100.0100, L503.6550, L501.9520 #### [facility] [address] [place], [address] RDW SD 49.6 fl High 35.1-43.9 [facility] Comment on above: Performed By: #### L 503.6150, L506.1000, L506.0250, L501.5200, L501.2300, L500.4100, L509.1000, L500.4050, L503.0105, L503.6075, L100.0100, L503.6550, L501.9520 #### [facility] [address] [place], [address] WBC (Bld) [#/Vol] 15.2 10*3/uL High 4.4-11.0 [facility] Comment on above: Performed By: #### L 503.6150, L506.1000, L506.0250, L501.5200, L501.2300, L500.4100, L509.1000, L500.4050, L503.0105, L503.6075, L100.0100, L503.6550, L501.9520 #### [facility] [address] [place], [place], [id number] CBC-Complete Blood Cnt No Di ffon 11-15-2024 Erythrocyte distribution width (RBC) [Ratio] 14.5 % Normal 11.6-14.6 [facility] Comment on above: Order Comment: Order Date: 04/28/24 Order Info: 0565-1 - PTHIN Performed By: #### L 503.6150, L506.1000, L506.0250, L501.5200, L501.2300, L500.4100, L509.1000, L500.4050, L503.0105, L503.6075, L100.0100, L503.6550, L501.9520 #### [facility] [address] [place], [address] Hematocrit (Bld) [Volume fraction] 40.2 % Normal 40-54 [facility] Comment on above: Order Comment: Order Date: 04/28/24 Order Info: 0565-1 - PTHIN Performed By: #### L 503.6150, L506.1000, L506.0250, L501.5200, L501.2300, L500.4100, L509.1000, L500.4050, L503.0105, L503.6075, L100.0100, L503.6550, L501.9520 #### [facility] [address] [place], [address] Hemoglobin (Bld) [Mass/Vol] 13.1 g/dL Normal 13.0-16.5 [facility] Comment on above: Order Comment: Order Date: 04/28/24 Order Info: 0565-1 - PTHIN Performed By: #### L 503.6150, L506.1000, L506.0250, L501.5200, L501.2300, L500.4100, L509.1000, L500.4050, L503.0105, L503.6075, L100.0100, L503.6550, L501.9520 #### [facility] [address] [place], [address] MCH (RBC) [Entitic mass] 30.5 pg Normal 27.0-32.0 [facility] Comment on above: Order Comment: Order Date: 04/28/24 Order Info: 0565-1 - PTHIN Performed By: #### L 503.6150, L506.1000, L506.0250, L501.5200, L501.2300, L500.4100, L509.1000, L500.4050, L503.0105, L503.6075, L100.0100, L503.6550, L501.9520 #### [facility] [address] [place], [address] MCHC (RBC) [Mass/Vol] 32.6 g/dL Normal 32-36 [facility] Comment on above: Order Comment: Order Date: 04/28/24 Order Info: 0565-1 - PTHIN Performed By: #### L 503.6150, L506.1000, L506.0250, L501.5200, L501.2300, L500.4100, L509.1000, L500.4050, L503.0105, L503.6075, L100.0100, L503.6550, L501.9520 #### [facility] [address] [place], [address] MCV (RBC) [Entitic vol] 93.5 fL Normal 80-94 [facility] Comment on above: Order Comment: Order Date: 04/28/24 Order Info: 0565-1 - PTHIN Performed By: #### L 503.6150, L506.1000, L506.0250, L501.5200, L501.2300, L500.4100, L509.1000, L500.4050, L503.0105, L503.6075, L100.0100, L503.6550, L501.9520 #### [facility] [address] [place], [address] Platelet mean volume (Bld) [Entitic vol] 9.9 fL Normal 6.2-12.0 [facility] Comment on above: Order Comment: Order Date: 04/28/24 Order Info: 0565-1 - PTHIN Performed By: #### L 503.6150, L506.1000, L506.0250, L501.5200, L501.2300, L500.4100, L509.1000, L500.4050, L503.0105, L503.6075, L100.0100, L503.6550, L501.9520 #### [facility] [address] [place], [address] Platelets (Bld) [#/Vol] 271 10*3/uL Normal 150-450 [facility] Comment on above: Order Comment: Order Date: 04/28/24 Order Info: 0565-1 - PTHIN Performed By: #### L 503.6150, L506.1000, L506.0250, L501.5200, L501.2300, L500.4100, L509.1000, L500.4050, L503.0105, L503.6075, L100.0100, L503.6550, L501.9520 #### [facility] [address] [place], [address] RBC (Bld) [#/Vol] 4.30 10*6/uL Low 4.6-6.2 [facility] Comment on above: Order Comment: Order Date: 04/28/24 Order Info: 0565-1 - PTHIN Performed By: #### L 503.6150, L506.1000, L506.0250, L501.5200, L501.2300, L500.4100, L509.1000, L500.4050, L503.0105, L503.6075, L100.0100, L503.6550, L501.9520 #### [facility] [address] [place], [address] RDW SD 50.1 fl High 35.1-43.9 [facility] Comment on above: Order Comment: Order Date: 04/28/24 Order Info: 0565-1 - PTHIN Performed By: #### L 503.6150, L506.1000, L506.0250, L501.5200, L501.2300, L500.4100, L509.1000, L500.4050, L503.0105, L503.6075, L100.0100, L503.6550, L501.9520 #### [facility] [address] [place], [address] WBC (Bld) [#/Vol] 10.3 10*3/uL Normal 4.4-11.0 [facility] Comment on above: Order Comment: Order Date: 04/28/24 Order Info: 0565-1 - PTHIN Performed By: #### L 503.6150, L506.1000, L506.0250, L501.5200, L501.2300, L500.4100, L509.1000, L500.4050, L503.0105, L503.6075, L100.0100, L503.6550, L501.9520 #### [facility] [address] [place], [address] Carbon dioxide, total [Moles /volume] in Central venous bloodOrdered By: Finn Ferrell on 11-15-2024 CO2 [Moles/Vol] 21.7 mmol/L 21.0-32.0 [facility] Carbon dioxide, total [Moles /volume] in Central venous bloodOrdered By: Cooper Francis on 11-15-2024 CO2 [Moles/Vol] 20.3 mmol/L Low 21.0-32.0 [facility] Chloride assayOrdered By: Tanika Ferrell on 11-15-2024 Chloride [Moles/Vol] 101 mmol/L 98-108 [facility] Chloride assayOrdered By: Jaquan Francis on 11-15-2024 Chloride [Moles/Vol] 102 mmol/L 98-108 [facility] Comprehensive Metabolic Prof ilon 11-15-2024 Albumin [Mass/Vol] 4.2 g/dL Normal 3.4-4.8 [facility] Comment on above: Order Comment: Order Date: 04/28/24 Order Info: 9 - B12 Order Info: 79895-4 - VITD25 Performed By: #### L 503.6150, L506.1000, L506.0250, L501.5200, L501.2300, L500.4100, L509.1000, L500.4050, L503.0105, L503.6075, L100.0100, L503.6550, L501.9520 #### [facility] [address] [place], [place], [id number] Albumin/Globulin [Mass ratio] 1.3 {ratio} Normal 0.9-2.4 [facility] Comment on above: Order Comment: Order Date: 04/28/24 Order Info: 2132-9 - B12 Order Info: 62313-6 - VITD25 Performed By: #### L 503.6150, L506.1000, L506.0250, L501.5200, L501.2300, L500.4100, L509.1000, L500.4050, L503.0105, L503.6075, L100.0100, L503.6550, L501.9520 #### [facility] [address] [place], [place], [id number] ALK PHOS 102 U/L Normal 40-129 [facility] Comment on above: Order Comment: Order Date: 04/28/24 Order Info: 2132-01 - B12 Order Info: [id number] - VITD25 Performed By: #### L 503.6150, L506.1000, L506.0250, L501.5200, L501.2300, L500.4100, L509.1000, L500.4050, L503.0105, L503.6075, L100.0100, L503.6550, L501.9520 #### [facility] [address] [place], [place], [id number] ALT [Catalytic activity/Vol] 36 U/L Normal <=46 [facility] Comment on above: Order Comment: Order Date: 04/28/24 Order Info: 2132-01 B12 Order Info: [id number] - VITD25 Performed By: #### L 503.6150, L506.1000, L506.0250, L501.5200, L501.2300, L500.4100, L509.1000, L500.4050, L503.0105, L503.6075, L100.0100, L503.6550, L501.9520 #### [facility] [address] [place], [place], [id number] AST [Catalytic activity/Vol] 23 U/L Normal <=37 [facility] Comment on above: Order Comment: Order Date: 04/28/24 Order Info: 2132-01 B12 Order Info: [id number] - VITD25 Performed By: #### L 503.6150, L506.1000, L506.0250, L501.5200, L501.2300, L500.4100, L509.1000, L500.4050, L503.0105, L503.6075, L100.0100, L503.6550, L501.9520 #### [facility] [address] [place], [place], [id number] [phone] Bilirubin [Mass/Vol] 1.28 mg/dL Normal 0.00-1.30 [facility] Comment on above: Order Comment: Order Date: 04/28/24 Order Info: 9 - B12 Order Info: [id number] - VITD25 Performed By: #### L 503.6150, L506.1000, L506.0250, L501.5200, L501.2300, L500.4100, L509.1000, L500.4050, L503.0105, L503.6075, L100.0100, L503.6550, L501.9520 #### [facility] [address] [place], [place], [id number] (171) BUN/CRE 15.5 RATIO Normal 10-20 [facility] Comment on above: Order Comment: Order Date: 04/28/24 Order Info: 2132-01 - B12 Order Info: [id number] - VITD25 Performed By: #### L 503.6150, L506.1000, L506.0250, L501.5200, L501.2300, L500.4100, L509.1000, L500.4050, L503.0105, L503.6075, L100.0100, L503.6550, L501.9520 #### [facility] [address] [place], [place], [id number] [phone] Calcium [Mass/Vol] 9.7 mg/dL Normal 7.6-11.0 [facility] Comment on above: Order Comment: Order Date: 04/28/24 Order Info: 9 - B12 Order Info: [id number] - VITD25 Performed By: #### L 503.6150, L506.1000, L506.0250, L501.5200, L501.2300, L500.4100, L509.1000, L500.4050, L503.0105, L503.6075, L100.0100, L503.6550, L501.9520 #### [facility] [address] [place], [address] Chloride [Moles/Vol] 101 mmol/L Normal 98-108 [facility] Comment on above: Order Comment: Order Date: 04/28/24 Order Info: 2132-01 - B12 Order Info: [id number] - VITD25 Performed By: #### L 503.6150, L506.1000, L506.0250, L501.5200, L501.2300, L500.4100, L509.1000, L500.4050, L503.0105, L503.6075, L100.0100, L503.6550, L501.9520 #### [facility] [address] [place], [address] CO2 [Moles/Vol] 21.7 mmol/L Normal 21.0-32.0 [facility] Comment on above: Order Comment: Order Date: 04/28/24 Order Info: 9 - B12 Order Info: [id number] - VITD25 Performed By: #### L 503.6150, L506.1000, L506.0250, L501.5200, L501.2300, L500.4100, L509.1000, L500.4050, L503.0105, L503.6075, L100.0100, L503.6550, L501.9520 #### [facility] [address] [place], [address] Creatinine [Mass/Vol] 2.13 mg/dL High 0.70-1.20 [facility] Comment on above: Order Comment: Order Date: 04/28/24 Order Info: 2132-01 - B12 Order Info: [id number] - VITD25 Performed By: #### L 503.6150, L506.1000, L506.0250, L501.5200, L501.2300, L500.4100, L509.1000, L500.4050, L503.0105, L503.6075, L100.0100, L503.6550, L501.9520 #### [facility] [address] [place], [place], [address] GAP 13 Normal 5-15 [facility] Comment on above: Order Comment: Order Date: 04/28/24 Order Info: 2132-01 B12 Order Info: [id number] - VITD25 Performed By: #### L 503.6150, L506.1000, L506.0250, L501.5200, L501.2300, L500.4100, L509.1000, L500.4050, L503.0105, L503.6075, L100.0100, L503.6550, L501.9520 #### [facility] [address] [place], [place], [id number] GFR/1.73 sq M.predicted among non-blacks MDRD (S/P/Bld) [Vol rate/Area] 33 mL/min/{1.73_m2} Low >60 [facility] Comment on above: Order Comment: Order Date: 04/28/24 Order Info: 2132-01 Order Info: [id number] - VITD25 Result Comment: mL/m in/1.73m2 CKD-EPI Creatinine Equation (2020) Performed By: #### L 503.6150, L506.1000, L506.0250, L501.5200, L501.2300, L500.4100, L509.1000, L500.4050, L503.0105, L503.6075, L100.0100, L503.6550, L501.9520 #### [facility] [address] [place], [place], [id number] Globulin (S) [Mass/Vol] 3.2 g/dL Normal 2.2-4.2 [facility] Comment on above: Order Comment: Order Date: 04/28/24 Order Info: 2132-01 - B12 Order Info: [id number] - VITD25 Performed By: #### L 503.6150, L506.1000, L506.0250, L501.5200, L501.2300, L500.4100, L509.1000, L500.4050, L503.0105, L503.6075, L100.0100, L503.6550, L501.9520 #### [facility] [address] [place], [address] Glucose [Mass/Vol] 92 mg/dL Normal 70-99 [facility] Comment on above: Order Comment: Order Date: 04/28/24 Order Info: 2132-01 - B12 Order Info: [id number] - VITD25 Performed By: #### L 503.6150, L506.1000, L506.0250, L501.5200, L501.2300, L500.4100, L509.1000, L500.4050, L503.0105, L503.6075, L100.0100, L503.6550, L501.9520 #### [facility] [address] [place], [address] Potassium [Moles/Vol] 4.6 mmol/L Normal 3.3-5.1 [facility] Comment on above: Order Comment: Order Date: 04/28/24 Order Info: 2132-01 - B12 Order Info: [id number] - VITD25 Performed By: #### L 503.6150, L506.1000, L506.0250, L501.5200, L501.2300, L500.4100, L509.1000, L500.4050, L503.0105, L503.6075, L100.0100, L503.6550, L501.9520 #### [facility] [address] [place], [address] Sodium [Moles/Vol] 136 mmol/L Normal 133-145 [facility] Comment on above: Order Comment: Order Date: 04/28/24 Order Info: 9 - B12 Order Info: [id number] - VITD25 Performed By: #### L 503.6150, L506.1000, L506.0250, L501.5200, L501.2300, L500.4100, L509.1000, L500.4050, L503.0105, L503.6075, L100.0100, L503.6550, L501.9520 #### [facility] [address] [place], [place], [id number] T PROT 7.4 g/dL Normal 5.9-8.4 [facility] Comment on above: Order Comment: Order Date: 04/28/24 Order Info: 9 - B12 Order Info: [id number] - VITD25 Performed By: #### L 503.6150, L506.1000, L506.0250, L501.5200, L501.2300, L500.4100, L509.1000, L500.4050, L503.0105, L503.6075, L100.0100, L503.6550, L501.9520 #### [facility] [address] [place], [place], [id number] Urea nitrogen [Mass/Vol] 33 mg/dL High 4-19 [facility] Comment on above: Order Comment: Order Date: 04/28/24 Order Info: 2131-9 - B12 Order Info: [id number] - VITD25 Performed By: #### L 503.6150, L506.1000, L506.0250, L501.5200, L501.2300, L500.4100, L509.1000, L500.4050, L503.0105, L503.6075, L100.0100, L503.6550, L501.9520 #### [facility] [address] [place], [place], [id number] Eosinophil percentageOrdered By: Cooper Francis on 11-15-2024 Eosinophils/100 WBC (Bld) 0.6 % 0-5 [facility] Erythrocyte distribution wid th ratioOrdered By: Finn Ferrell on 11-15-2024 Erythrocyte distribution width (RBC) [Ratio] 14.5 % 11.6-14.6 [facility] Erythrocyte distribution wid th ratioOrdered By: Cooper Francis on 11-15-2024 Erythrocyte distribution width (RBC) [Ratio] 14.9 % High 11.6-14.6 [facility] Erythrocyte distribution wid th standard deviationOrdered By: Finn Ferrell on 11-15-2024 Erythrocyte distribution width (RBC) [Ratio] 50.1 fl High 35.1-43.9 [facility] Erythrocyte distribution wid th standard deviationOrdered By: Cooper Francis on 11-15-2024 Erythrocyte distribution width (RBC) [Ratio] 49.6 fl High 35.1-43.9 [facility] Foot min 3 Viewson Foot min 3 Views [facility] [address] [place] [id number] Foot min 3 Views MR#: [id number] Acct: [id number] Name: SHANNON OLSON Rep #: [id number] : 1955 69 From: Brie romano MD PCP: Dr. Finn Ferrell MD Status: REG ER Study: Foot min 3 Views Date of Exam: 11/15/24 Exam# [id number] Ordering Dr: Cooper Francis DO PROCEDURE: FOOT MIN 3 VIEWS 11/15/2024 REASON FOR EXAM: INJURY/PAIN TECHNIQUE: FOOT MIN 3 VIEWS COMPARISON: None FINDINGS: Normal talus, calcaneus, and tarsal bones. Normal visualized subtalar, talonavicular, calcaneocuboid, tarsal and tarsometatarsal articulations. Normal metatarsi. Normal metatarsophalangeal joint of the great toe. Normal tibial and fibular sesamoid bones. Normal interphalangeal joint of the great toe. Normal phalanges of the great toe. Normal second through fifth metatarsophalangeal joints. Normal interphalangeal joints of the lesser toes. Normal phalanges of the lesser toes. RAD/Foot min 3 Views IMPRESSION: Normal x-ray examination of the foot. Reading Location: [facility] CC: Dr. Cooper Francis, DO; Dr. Finn Ferrell MD Camp Advisor: Signed Normal [facility] Glomerular filtration rate ( GFR) estimation/1.73 sq m using serum, plasma, or whole bOrdered By: Finn Ferrell on 11-15-2024 GFR/1.73 sq M.predicted among non-blacks MDRD (S/P/Bld) [Vol rate/Area] 33 mL/min/{1.73_m2} Low >60 [facility] Comment on above: mL/min/1.73m2 CKD-EP I Creatinine Equation (2020) Glomerular filtration rate ( GFR) estimation/1.73 sq m using serum, plasma, or whole bOrdered By: Cooper Francis on 11-15-2024 GFR/1.73 sq M.predicted among non-blacks MDRD (S/P/Bld) [Vol rate/Area] 29 mL/min/{1.73_m2} Low >60 [facility] Comment on above: mL/min/1.73m2 CKD-EP I Creatinine Equation (2020) Hematocrit Auto (Bld) [Volum e fraction]Ordered By: Finn Ferrell on 11-15-2024 Hematocrit (Bld) [Volume fraction] 40.2 % 40-54 [facility] Hematocrit Auto (Bld) [Volum e fraction]Ordered By: Cooper Francis on 11-15-2024 Hematocrit (Bld) [Volume fraction] 43.4 % 40-54 [facility] Hemoglobin measurementOrdere d By: Finn Ferrell on 11-15-2024 Hemoglobin (Bld) [Mass/Vol] 13.1 g/dL 13.0-16.5 [facility] Hemoglobin measurementOrdere d By: Cooper Francis on 11-15-2024 Hemoglobin (Bld) [Mass/Vol] 14.3 g/dL 13.0-16.5 [facility] Immature granulocytes/100 WB C Auto (Bld)Ordered By: Cooper Francis on 11-15-2024 Immature granulocytes/100 WBC (Bld) 0.700 % 0.0-0.9 [facility] Comment on above: IG% - Immature Granu locytes (promyelocytes, myelocytes and metamyelocytes) > 1% indicates that a LEFT SHIFT is Present. Laboratory - Chemistry and C hemistry - challengeOrdered By: Finn Ferrell on 11-15-2024 AST [Catalytic activity/Vol] 23 U/L <38 [facility] MCV (mean corpuscular volume ) determinationOrdered By: Finn Ferrell on 11-15-2024 MCV (RBC) [Entitic vol] 93.5 fL 80-94 [facility] MCV (mean corpuscular volume ) determinationOrdered By: Cooper Francis on 11-15-2024 MCV (RBC) [Entitic vol] 93.1 fL 80-94 [facility] Mean corpuscular hemoglobin (MCH) determinationOrdered By: Finn Ferrell on 11-15-2024 MCH (RBC) [Entitic mass] 30.5 pg 27.0-32.0 [facility] Mean corpuscular hemoglobin (MCH) determinationOrdered By: Cooper Francis on 11-15-2024 MCH (RBC) [Entitic mass] 30.7 pg 27.0-32.0 [facility] Mean corpuscular hemoglobin concentration (MCHC) determinationOrdered By: Finn Ferrell on 11-15-2024 MCHC (RBC) [Mass/Vol] 32.6 g/dL -36 [facility] Mean corpuscular hemoglobin concentration (MCHC) determinationOrdered By: Cooper Francis on 11-15-2024 MCHC (RBC) [Mass/Vol] 32.9 g/dL 32-36 [facility] Mean platelet volume determi nationOrdered By: Finn Ferrell on 11-15-2024 Platelet mean volume (Bld) [Entitic vol] 9.9 fL 6.2-12.0 [facility] Mean platelet volume determi nationOrdered By: Cooper Francis on 11-15-2024 Platelet mean volume (Bld) [Entitic vol] 9.6 fL 6.2-12.0 [facility] Monocyte percentageOrdered B y: Cooper Francis on 11-15-2024 Monocytes/100 WBC (Bld) 7.0 % 0-10 [facility] Neutrophil percentageOrdered By: Cooper Francis on 11-15-2024 Neutrophils/100 WBC (Bld) 77.4 % High 47-70 [facility] Nucleated red blood cell per centageOrdered By: Cooper Francis on 11-15-2024 Nucleated RBC/100 WBC (Bld) [Ratio] 0 % 0-5 [facility] Platelet countOrdered By: Tanika Ferrell on 11-15-2024 Platelets (Bld) [#/Vol] 271 10*3/uL 150-450 [facility] Platelet countOrdered By: Jaquan Francis on 11-15-2024 Platelets (Bld) [#/Vol] 279 10*3/uL 150-450 [facility] Potassium measurement (mass/ volume)Ordered By: Finn Ferrell on 11-15-2024 Potassium (Unsp spec) [Mass/Vol] 4.6 mmol/L 3.3-5.1 [facility] Potassium measurement (mass/ volume)Ordered By: Cooper Francis on 11-15-2024 Potassium (Unsp spec) [Mass/Vol] 5.4 mmol/L High 3.3-5.1 [facility] Comment on above: Hemolysis present, R esults could be affected. RBC Auto (Bld) [#/Vol]Ordere d By: Finn Ferrell on 11-15-2024 RBC (Bld) [#/Vol] 4.30 10*6/uL Low 4.6-6.2 [facility] RBC Auto (Bld) [#/Vol]Ordere d By: Cooper Francis on 11-15-2024 RBC (Bld) [#/Vol] 4.66 10*6/uL 4.6-6.2 [facility] Serum creatinine measurement (mass/volume)Ordered By: Finn Ferrell on 11-15-2024 Creatinine [Mass/Vol] 2.13 mg/dL High 0.70-1.20 [facility] Serum creatinine measurement (mass/volume)Ordered By: Cooper Francis on 11-15-2024 Creatinine [Mass/Vol] 2.38 mg/dL High 0.70-1.20 [facility] Serum globulin measurementOr dered By: Finn Ferrell on 11-15-2024 Globulin (S) [Mass/Vol] 3.2 g/dL 2.2-4.2 [facility] Serum glucose measurement (m ass/volume)Ordered By: Finn Ferrell on 11-15-2024 Glucose [Mass/Vol] 92 mg/dL 70- [facility] Serum glucose measurement (m ass/volume)Ordered By: Cooper Francis on 11-15-2024 Glucose [Mass/Vol] 122 mg/dL High 70-99 [facility] Serum or plasma alanine newman otransferase (ALT) measurementOrdered By: Finn Ferrell on 11-15-2024 ALT [Catalytic activity/Vol] 36 U/L <47 [facility] Serum or plasma albumin renu urement (mass/volume)Ordered By: Finn Ferrell on 11-15-2024 Albumin [Mass/Vol] 4.2 g/dL 3.4-4.8 [facility] Serum or plasma albumin/glob ulin mass ratioOrdered By: Finn Ferrell on 11-15-2024 Albumin/Globulin [Mass ratio] 1.3 {ratio} 0.9-2.4 [facility] Serum or plasma alkaline christal sphatase measurementOrdered By: Finn Ferrell on 11-15-2024 ALP [Catalytic activity/Vol] 102 U/L 40-129 [facility] Serum or plasma calcium renu urement (mass/volume)Ordered By: Finn Ferrell on 11-15-2024 Calcium [Mass/Vol] 9.7 mg/dL 7.6-11.0 [facility] Serum or plasma calcium renu urement (mass/volume)Ordered By: Cooper Francis on 11-15-2024 Calcium [Mass/Vol] 10.1 mg/dL 7.6-11.0 [facility] Serum or plasma urea nitroge n measurement (mass/volume)Ordered By: Finn Ferrell on 11-15-2024 Urea nitrogen [Mass/Vol] 33 mg/dL High 09-09 [facility] Serum or plasma urea nitroge n measurement (mass/volume)Ordered By: Cooper Francis on 11-15-2024 Urea nitrogen [Mass/Vol] 33 mg/dL High 09-09 [facility] Serum or plasma uric acid me asurement (mass/volume)Ordered By: Cooper Francis on 11-15-2024 Urate [Mass/Vol] 9.4 mg/dL High 3.5-7.2 [facility] Comment on above: The drugs N-Acetylcy steine and Metamizole may falsely depress this assay. Sodium levelOrdered By: Finn Ferrell on 11-15-2024 Sodium [Moles/Vol] 136 mmol/L 133-145 [facility] Sodium levelOrdered By: Cooper Francis on 11-15-2024 Sodium [Moles/Vol] 138 mmol/L 133-145 [facility] Total proteinOrdered By: Benedicto Ferrell on 11-15-2024 Protein [Mass/Vol] 7.4 g/dL 5.9-8.4 [facility] Uric Acidon 11-15-2024 URIC 9.4 mg/dL High 3.5-7.2 [facility] Comment on above: Result Comment: The drugs N-Acetylcysteine and Metamizole may falsely depress this assay. Performed By: #### L 503.6150, L506.1000, L506.0250, L501.5200, L501.2300, L500.4100, L509.1000, L500.4050, L503.0105, L503.6075, L100.0100, L503.6550, L501.9520 #### [facility] [address] [place], [address] White blood cell (WBC) count Ordered By: Finn Ferrell on 11-15-2024 WBC (Bld) [#/Vol] 10.3 10*3/uL 4.4-11.0 [facility] White blood cell (WBC) count Ordered By: Cooper Francis on 11-15-2024 WBC (Bld) [#/Vol] 15.2 10*3/uL High 4.4-11.0 [facility] Emergency Department Summary on 11-14-2024 Emergency Department Summary [facility] Medical Records Department [address] [place] [address] Emergency Department Summary 11/14/24 MR#: [id number] Acct: [id number] Name: SHANNON OLSON Rep #: [id number] : 1955 69 From: Cooper Francis DO PCP: Dr. Finn Ferrell MD Status:DEP ER Location: ED HPI History of Present Illness HPI Narrative: Patient presents with possible gout flareup in his left great toe that has been getting worse over the past 3 days. Patient denies any trauma or injury. Patient describes pain as sharp and burning. Patient states it is worse with walking. Patient states nothing seems to help with the pain. Patient denies any paresthesias or weakness. Patient denies any fevers but admits to some subjective chills. Patient states he has had similar gout attacks in his right foot in the past. Chief Complaint: Lower Extremity Injury Informant: patient Onset/Context/Timing Onset: Days (3) Context: Gradual Onset Timing: Continuous Quality of Pain: Sharp and Burning Location: Left great toe Worsened by: Walking Relieved by: Nothing Associated Symptoms Associated Symptoms: Negative for Parasthesia, Weakness or Loss of Funtion [facility] Medical History Left rotator cuff tear [...] (hypertension) Hyperlipidemia Esophageal reflux Coronary atherosclerosis of pauma coronary vessel Home Medications ???Medication ???Instructions ???Recorded ???Last Taken ???Type minoxidil 10 mg tablet 5 mg PO BID blood pressure 0 05/20/23 History nitroglycerin 0.4 mg sublingual 0.4 mg sublingual Q5-15M PRN cp Unknown History tablet clopidogrel 75 mg tablet (Plavix) 75 mg PO DAILY 09/09/21 05/19/23 History apixaban 5 mg tablet (Eliquis) 5 mg PO BID 10/30/21 05/18/23 Hist ory isosorbide mononitrate 30 mg 60 mg PO DAILY 01/07/22 05/20/23 H istory tablet,extended release 24 hr metoprolol succinate 50 mg 25 mg PO DAILY 04/07/23 05/20/23 H istory tablet,extended release 24 hr torsemide 20 mg tablet 20 mg PO DAILY 04/07/23 05/19/23 H istory metoprolol tartrate 50 mg tablet 25 mg PO QHS 05/19/23 05/20/23 His tory amiodarone 200 mg tablet 200 mg PO DAILY 05/20/23 05/20/23 History metoprolol tartrate 25 mg tablet 25 mg PO DAILY 03/26/24 Unknown Hi story rosuvastatin 40 mg tablet 40 mg PO DAILY 03/26/24 Unknown Hi story oxycodone-acetaminophen 5 mg-325 1 tab PO Q6H PRN pain 3 days #12 1 05/27/23 Unknown Rx mg tablet (Percocet) tabs hydrocodone-acetaminophen 5-325mg 1 tab PO Q6H PRN PRN Pain 3 days 04/23/24 Unknown Rx 5mg-325mg #10 TABLETS prednisone 20 mg tablet 40 mg (2 x 20 mg) PO DAILY #10 06/16 Unknown Rx TABLETS Allergy/AdvReac Type Severity Reaction Status Date / Time Penicillins Allergy Hives Verified 11/14/24 23:14 Family History Sister Cancer ovarian Diabetes Brother [...] use ROS ROS ED Constitutional Constitutional ED: Reports chills; Denies fever(s) Eyes Eyes: Denies blurry vision or change in vision ENT ENT ED: Denies rhinorrhea (more content not included)... [facility] 10-19-2024 36 Great news, Tried to return phone call but no voice mail. Continue with same plan. [facility] 36 Pt called sarah landa to know he feels Awesome! Med changes are great, no chest pain, doing yard work, walking more. [facility] 10-09-2024 29 Addended by: DANISHA SPAIN on: 10/10/2024 01:52 PM Modules accepted: Orders [facility] Progress Noteon 10-09-2024 Progress Note 10/09/24 [...] to re-admit to SNF/HHC if needed. N/A [facility] Progress Note Patient is scheduled with Dr. Escobedo on 02/07/2025, He lives in [place], please try and get his repeat ECHO for LV function, scheduled the same day. See order, I tried to call him to discuss, but he did not answer, no Voice mail. [facility] 09-28-2024 36 Pt asking when he ne eds another Echo. Please call patient [facility] 09-28-2024 37 Reduce norvasc to 5 mg once a day , reduce Ranexa to 500 mg twice a day Add Zetia 10 mg daily Call me in 2-3 weeks [phone] Normal [facility] Office Visiton 09-28-2024 Follow-up visit [id number] Shannon Olson 1955 M Date Provider Department Center 09/28/2024 [id number] FRANCE J [facility] [address] Ar Family History Problem Relation Age of Onset Diabetes Paternal Grandmother Diabetes Maternal Grandfather Cancer Sister Hypertension Mother Diabetes Sister Diabetes Paternal Grandfather Heart disease Paternal Grandmother Heart disease Paternal Grandfather Cancer Father Diabetes Brother Family Status - Relation Status Age at Paternal Grandmother Maternal Grandfather Sister Mother Alive Paternal Grandfather Father Brother Level of Service:86550 DC OFFICE/OUTPATIENT ESTABLISHED MOD MDM 30 MIN Reason for Visit and Comments: Coronary Artery Disease [187] Normal [facility] Progress Noteon 09-28-[address] [facility] [address] [facility] [address] Dept: [phone] Dept Visit Type: Established NAME: Shannon Olson [...] Past Medical History: Diagnosis Date Angina pectoris ([facility]) Anxiety Arrhythmia A-fib Asthma CAD (coronary artery disease) Cerebral artery occlusion with cerebral infarction ([facility]) COPD (chronic obstructive pulmonary disease) ([facility]) Depression WATTS (dyspnea on exertion) Fatigue GERD (gastroesophageal reflux disease) History of cardioversion 05/07/2016 Successful conversion of a-fib to SR History of left heart catheterization 05/07/2016 60% stenosis right posterior descending, patent stents in prox, mid & distal RCA, patent stents in med LCx. Findings unchanged from previous study. 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 FPC current use of anticoagulant NSTEMI (non-ST elevated myocardial infarction) (FORMERLY [facility]) 12/2012 NSTEMI (non-ST elevated myocardial infarction) ([facility]) 05/2014 Obesity Old SC (myocardial infarction) HIPOLITO (obstructive sleep apnea) HIPOLITO on CPAP PAF (paroxysmal atrial fibrillation) ([facility]LY [facility]) Rheumatoid arthritis(714.0) (FORMERLY [facility]) ST segment elevation myocardial infarction (STEMI) of anterolateral wall, subsequent episode of care ([facility]) TIA (transient ischemic attack) Social History Tobacco Use Smoking status: Never Smokeless tobacco: Never Substance Use Topics Alcohol use: Not Currently Past Surgical History: Procedure Laterality Date CAPSULOTOMY, HAND 05/07/2016 CARDIAC CATHETERIZATION N/A 03/01/2023 Performed by Zoie Gonzales MD at [facility] Cardiac Cath/EP Lab CARDIAC CATHETERIZATION Left 09/14/2024 Performed by Dominguez Ortega MD at [facility] Cardiac Cath/EP Lab CARDIAC CATHETERIZATION N/A 09/14/2024 Performed by Dominguez Ortega MD at [facility] Cardiac Cath/EP Lab CARDIAC CATHETERIZATION N/A 09/14/2024 Performed by Dominguez Ortega MD at [facility] Cardiac Cath/EP Lab CARDIAC CATHETERIZATION N/A 09/14/2024 Performed by Dominguez Ortega MD at [facility] Cardiac Cath/EP Lab CARDIAC PROCEDURE Left [...] WITH GERARDO (more content not included)... Normal [facility] 30on 09-15-2024 30 Problem: Pain - Adul t Goal: Verbalizes/displays adequate comfort level or baseline comfort level Outcome: Progressing Problem: Safety - Adult Goal: Free from fall injury Outcome: Progressing Problem: Discharge Planning Goal: Discharge to home or other facility with appropriate resources Outcome: Progressing Normal [facility] CBC (HEMOGRAM)on 09-15-2024 Erythrocyte distribution width (RBC) [Ratio] 14.7 % Normal 11.5-15.0 [facility] Comment on above: Performed By: #### L AB17, LAB18 #### Stripe Marker: DUTCH ABBOTT ([phone]) [facility] ([facility]) [address] [place] [address] Hematocrit (Bld) [Volume fraction] 36.3 % Low 40.0-52.0 [facility] Comment on above: Performed By: #### L AB17, LAB18 #### Stripe Marker: DUTCH ABBOTT ([phone]) [facility] ([facility]) [address] [place] [address] Hemoglobin (Bld) [Mass/Vol] 11.7 g/dL Low 13.0-18.0 [facility] Comment on above: Performed By: #### L AB17, LAB18 #### Stripe Marker: DUTCH ABBOTT ([phone]) [facility]) [address] [place] [address] MCH (RBC) [Entitic mass] 29.6 pg Normal 26.0-34.0 [facility] Comment on above: Performed By: #### L AB17, LAB18 #### Stripe Marker: DUTCH ABBOTT ([id number]) [facility] ([facility]) [address] [place] [address] MCHC 32.2 % Normal 30.5-36.0 [facility] Comment on above: Performed By: #### L AB17, LAB18 #### Stripe Marker: DUTCH ABBOTT ([phone]) [facility] ([facility]) [address] [place] [address] MCV (RBC) [Entitic vol] 91.9 fL Normal 77.0-99.0 [facility] Comment on above: Performed By: #### L AB17, LAB18 #### Stripe Marker: DUTCH ABBOTT ([phone]) [facility]) [address] [place] [address] Platelet mean volume (Bld) [Entitic vol] 9.8 fL Normal 9.0-12.7 [facility] Comment on above: Performed By: #### L AB17, LAB18 #### Stripe Marker: DUTCH ABBOTT ([id number]) [facility] ([facility]) [address] [place] [address] Platelets (Bld) [#/Vol] 194 10*3/uL Normal 140-440 [facility] Comment on above: Performed By: #### L AB17, LAB18 #### Stripe Marker: DUTCH ABBOTT ([id number]) [facility] ([facility]) [address] [place] [address] RBC (Bld) [#/Vol] 3.95 10*6/uL Low 4.40-5.90 [facility] Comment on above: Performed By: #### L AB17, LAB18 #### Stripe Marker: DUTCH ABBOTT ([phone]) [facility] ([facility]) [address] [place] [address] WBC (Bld) [#/Vol] 9.2 10*3/uL Normal 3.6-10.7 [facility] Comment on above: Performed By: #### L AB17, LAB18 #### Stripe Marker: DUTCH ABBOTT ([id number]) [facility] ([facility]) [address] [place] [address] CBC panel Auto (Bld)on 09-15 Erythrocyte distribution width (RBC) [Ratio] 14.7 % 11.5 - 15.0 % [facility] Hematocrit (Bld) [Volume fraction] 36.3 % Low 40.0 - 52.0 % [facility] Hemoglobin (Bld) [Mass/Vol] 11.7 g/dL Low 13.0 - 18.0 g/dL [facility] Interpretation and review of laboratory results Abnormal [facility] MCH (RBC) [Entitic mass] 29.6 pg 26.0 - 34.0 pg [facility] MCHC (RBC) [Mass/Vol] 32.2 % 30.5 - 36.0 % [facility] MCV (RBC) [Entitic vol] 91.9 fL 77.0 - 99.0 fL [facility] Platelet mean volume (Bld) [Entitic vol] 9.8 fL 9.0 - 12.7 fL [facility] Platelets (Bld) [#/Vol] 194 10*3/uL 140 - 440 10*3/uL [facility] RBC (Bld) [#/Vol] 3.95 10*6/uL Low 4.40 - 5.90 10*6/uL [facility] WBC (Bld) [#/Vol] 9.2 10*3/uL 3.6 - 10.7 10*3/uL [facility] COMPREHENSIVE METABOLIC PANE Kamar 09-15-2024 Albumin [Mass/Vol] 3.3 g/dL Low 3.4-4.8 [facility] Comment on above: Performed By: #### L AB17, LAB18 #### Stripe Marker: DUTCH ABBOTT ([id number]) [facility] ([facility]) [address] [place] [address] ALP [Catalytic activity/Vol] 75 U/L Normal 40-150 [facility] Comment on above: Performed By: #### L AB17, LAB18 #### Stripe Marker: DUTCH ABBOTT ([id number]) [facility] ([facility]) [address] [place] [address] ALT [Catalytic activity/Vol] 17 U/L Normal <40 [facility] Comment on above: Performed By: #### L AB17, LAB18 #### Stripe Marker: DUTCH ABBOTT ([id number]) [facility] ([facility]) [address] [place] [address] Anion gap [Moles/Vol] 7 mmol/L Normal 3-13 [facility] Comment on above: Performed By: #### L AB17, LAB18 #### Stripe Marker: DUTCH ABBOTT ([id number]) [facility] ([facility]) [address] [place] [address] AST [Catalytic activity/Vol] 20 U/L Normal <34 [facility] Comment on above: Performed By: #### L AB17, LAB18 #### Stripe Marker: DUTCH ABBOTT ([id number]) [facility] ([facility]) [address] [place] [address] Bilirubin [Mass/Vol] 1.5 mg/dL High <1.2 [facility] Comment on above: Performed By: #### L AB17, LAB18 #### Stripe Marker: DUTCH ABBOTT ([phone]) [facility] ([facility]) [address] [place] [address] [place] Calcium [Mass/Vol] 8.3 mg/dL Low 8.8-10.0 [facility] Comment on above: Performed By: #### L AB17, LAB18 #### Stripe Marker: DTUCH ABBOTT ([phone]) [facility] ([facility]) [address] [place] [address] [place] Chloride [Moles/Vol] 111 mmol/L High 98-107 [facility] Comment on above: Performed By: #### L AB17, LAB18 #### Stripe Marker: DUTCH ABBOTT ([id number]) [facility] ([facility]) [address] [place] [address] CO2 [Moles/Vol] 21 mmol/L Low 23-31 [facility] Comment on above: Performed By: #### L AB17, LAB18 #### Stripe Marker: DUTCH ABBOTT ([id number]) [facility] ([facility]) [address] [place] [address] [place] Creatinine [Mass/Vol] 1.26 mg/dL High 0.72-1.25 [facility] Comment on above: Performed By: #### L AB17, LAB18 #### Stripe Marker: DUTCH ABBOTT ([id number]) [facility] ([facility]) [address] [place] [address] [place] GLOMERULAR FILTRATION RATE ML/MIN/1.73 SQ M.PREDICTED 62.1 mL/min/1.73m*2 Normal >60.0 [facility] Comment on above: Result Comment: Calc ulation based on the Chronic Kidney Disease Epidemiology Collaboration (CKD-EPI) equation refit without adjustment for race Performed By: #### L AB17, LAB18 #### Stripe Marker: DUTCH ABBOTT ([id number]) [facility] ([facility]) [address] [place] [address] [place] Glucose [Mass/Vol] 116 mg/dL High 82-115 [facility] Comment on above: Performed By: #### L AB17, LAB18 #### Stripe Marker: DUTCH ABBOTT ([id number]) [facility] ([facility]) [address] [place] [address] Potassium [Moles/Vol] 4.0 mmol/L Normal 3.5-5.1 [facility] Comment on above: Result Comment: [facility] potassium values may be up to 0.5 mmol/L lower than serum values. Performed By: #### L AB17, LAB18 #### Stripe Marker: DUTCH ABBOTT ([phone]) [facility] ([facility]) [address] [place] [address] Protein [Mass/Vol] 6.1 g/dL Low 6.4-8.3 [facility] Comment on above: Performed By: #### L AB17, LAB18 #### Stripe Marker: DUTCH ABBOTT ([id number]) [facility] ([facility]) [address] [place] [address] Sodium [Moles/Vol] 139 mmol/L Normal 136-145 [facility] Comment on above: Performed By: #### L AB17, LAB18 #### Stripe Marker: DUTCH ABBOTT ([id number]) [facility] ([facility]) [address] [place] [address] Urea nitrogen [Mass/Vol] 21 mg/dL Normal 9-23 [facility] Comment on above: Performed By: #### L AB17, LAB18 #### Stripe Marker: DUTCH ABBOTT ([id number]) [facility] ([facility]) [address] [place] [address] Comprehensive metabolic 1998 panelon 09-15-2024 Albumin [Mass/Vol] 3.3 g/dL Low 3.4 - 4.8 g/dL [facility] ALP [Catalytic activity/Vol] 75 U/L 40 - 150 U/L [facility] ALT [Catalytic activity/Vol] 17 U/L NINF - 40 U/L [facility] Anion gap [Moles/Vol] 7 mmol/L 3 - 13 mmol/L [facility] AST [Catalytic activity/Vol] 20 U/L NINF - 34 U/L [facility] Bilirubin [Mass/Vol] 1.5 mg/dL High NINF - 1.2 mg/dL [facility] Calcium [Mass/Vol] 8.3 mg/dL Low 8.8 - 10. 0 mg/dL [facility] Chloride [Moles/Vol] 111 mmol/L High 98 - 10 7 mmol/L [facility] CO2 [Moles/Vol] 21 mmol/L Low 23 - 31 mmol/L [facility] Creatinine [Mass/Vol] 1.26 mg/dL High 0.72 - 1.25 mg/dL [facility] GFR/1.73 sq M.predicted (S/P/Bld) [Vol rate/Area] 62.1 mL/min - PINF [facility] Comment on above: Calculation based on the Chronic Kidney Disease Epidemiology Collaboration (CKD-EPI) equation refit without adjustment for race Glucose [Mass/Vol] 116 mg/dL High 82 - 115 mg/dL [facility] Potassium [Moles/Vol] 4 mmol/L 3.5 - 5.1 mmol/L [facility] Comment on above: Plasma potassium reed ues may be up to 0.5 mmol/L lower than serum values. Protein [Mass/Vol] 6.1 g/dL Low 6.4 - 8.3 g/dL [facility] Sodium [Moles/Vol] 139 mmol/L 136 - 145 mmol/L [facility] Urea nitrogen [Mass/Vol] 21 mg/dL 9 - 23 mg/dL [facility] ECG 12-LEADon 09-15-2024 ECG 12-LEAD IMPRESSION: Sinus bradycardia Left bundle branch block Electronically Signed On 09-15-2024 19:22:18 EDT by Alvaro Elliott Normal [facility] ECG 12-LEAD IMPRESSION: Sinus bradycardia Left bundle branch block Electronically Signed On 09-15-2024 19:13:56 EDT by Alvaro Elliott Normal [facility] LIPID PANELon 09-15-2024 Cholesterol [Mass/Vol] 161 mg/dL Normal <200 [facility] Comment on above: Performed By: #### L AB17, LAB18 #### Stripe Marker: DUTCH ABBOTT ([phone]) [facility] ([facility]) [address] [place] [address] Cholesterol in HDL [Mass/Vol] 39 mg/dL Low >=60 [facility] Comment on above: Performed By: #### L AB17, LAB18 #### Stripe Marker: DUTCH ABBOTT ([id number]) [facility]) [address] [place] [address] Cholesterol.total/Chol esterol in HDL [Mass ratio] 4 {ratio} Normal [facility] Comment on above: Result Comment: Ref Range: < 3 Low Risk for CHD 3-6 Mod Risk for CHD > 6 High Risk for CHD Performed By: #### L AB17, LAB18 #### Stripe Marker: DUTCH ABBOTT ([id number]) [facility] ([facility]) [address] [place] [address] LOW DENSITY LIPOPROTEIN 82 mg/dL Normal 0-<100 [facility] Comment on above: Performed By: #### L AB17, LAB18 #### Stripe Marker: DUTCH ABBOTT ([id number]) [facility] ([facility]) [address] [place] [address] NON-HDL CHOLESTEROL, CALCULATED 122 Normal <130 [facility] Comment on above: Performed By: #### L AB17, LAB18 #### Stripe Marker: DUTCH ABBOTT ([phone]) [facility] ([facility]) [address] [place] [address] Triglyceride [Mass/Vol] 202 mg/dL High <150 [facility] Comment on above: Performed By: #### L AB17, LAB18 #### Stripe Marker: DUTCH ABBOTT ([phone]) [facility] ([facility]) [address] [place] [address] VERY LOW DENSITY LIPOPROTEIN, CALCULATED 40 mg/dL High <=30 [facility] Comment on above: Performed By: #### L AB17, LAB18 #### Stripe Marker: DUTCH ABBOTT ([phone]) [facility]) [address] [place] [address] Lipid 1996 panelon 5 Cholesterol [Mass/Vol] 161 mg/dL NINF - 200 mg/dL [facility] Cholesterol in HDL [Mass/Vol] 39 mg/dL Low 60 - PINF mg/dL [employer] [facility] Cholesterol in LDL [Mass/Vol] 82 mg/dL 0 - <100 [employer] [facility] Cholesterol.total/Chol esterol in HDL [Mass ratio] 4 {ratio} [employer] Comment on above: Ref Range: < 3 Low Risk for CHD 3-6 Mod Risk for CHD > 6 High Risk for CHD NON-HDL CHOLESTEROL, CALCULATED 122 NINF - 130 [facility] Triglyceride [Mass/Vol] 202 mg/dL High NINF - 150 mg/dL [employer] [facility] VERY LOW DENSITY LIPOPROTEIN, CALCULATED 40 mg/dL High NINF - 30 mg/dL [employer] [facility] No Panel InformationOrdered By: Alvaro Elliott on 09-15-2024 P [place] 35 degrees [employer] Work Phone: DC Interval 203 ms [employer] [facility] Work Phone: QRS [place] 6 degrees [employer] Work Phone: QRSD Interval 160 ms [employer] [facility] Work Phone: QT Interval 505 ms [employer] [facility] Work Phone: QTC Interval 457 ms [employer] Work Phone: T Wave [place] 187 degrees [employer] [facility] Work Phone: [employer] [facility] Work Phone: No Panel Informationon 09-15 Sinus bradycardia Left bundle branch block Electronically Signed On 09-15-2024 19:22:18 EDT by Alvaro Elliott Alvaro Hawkins MD - 09/15/2024 IMPRESSION: Sinus bradycardia Left bundle branch block Electronically Signed On 09-15-2024 19:22:18 EDT by Alvaro Elliott [employer] [facility] P [place] 14 degrees [employer] [facility] DC Interval 202 ms [facility] QRS [place] -5 degrees [employer] [facility] QRSD Interval 174 ms [employer] [facility] QT Interval 681 ms [employer] [facility] QTC Interval 636 ms [employer] [facility] T Wave [place] 166 degrees [employer] [facility] Sinus bradycardia Left bundle branch block Electronically Signed On 09-15-2024 19:13:56 EDT by Alvaro Elliott Alvaro Hawkins MD - 09/15/2024 IMPRESSION: Sinus bradycardia Left bundle branch block Electronically Signed On 09-15-2024 19:13:56 EDT by Alvaro Elliott [facility] Interpretation and review of laboratory results Abnormal [facility] Vital signsOrdered By: Monica Elliott on 09-15-2024 Heart rate 49 /min bpm [facility] Work Phone: Vital signson 09-15-2024 Heart rate 53 /min bpm [facility] 30on 09-14-2024 30 Problem: Pain - Adul t Goal: Verbalizes/displays adequate comfort level or baseline comfort level Outcome: Progressing Problem: Safety - Adult Goal: Free from fall injury Outcome: Progressing Problem: Discharge Planning Goal: Discharge to home or other facility with appropriate resources Outcome: Progressing Normal [facility] Anesthesia Noteon 09-14-2024 Anesthesia Note Sedation [...] proceed to administer sedation as planned. Normal [facility] No Panel Informationon 09-14 Interpretation and review of laboratory results Abnormal [facility] POCT ACT 166 [facility] POCT ACT 270 [facility] POCT ACT 248 [facility] Performed by: [facility], [address] [place] [address] CLIA ID: [id number] [facility] Nursing Noteon 09-14-2024 Nursing Note Report called to Sydney humphries RN 1 Central Normal [facility] Nursing Note MEDICAL ART THERAPIST updated on pt sta tus, no improvement in chest pressure and now with room spinning dizziness. Normal [facility] Nursing Note MEDICAL ART THERAPIST at pt bedside Normal [facility] Progress Noteon 09-14-2024 Progress Note S/P PCI Seen in Prep and Recovery for C/O chest burning discomfort and sensation of room spinning. Discomfort not angina and is tender to palpation. Likely due to PCI with IVL and PTCA. Vitals and EKG are stable, no distress. Will observe overnight. Fluids infusing. Fellow and Dr. Ortega updated. Orders placed for admission. Normal [facility] 29on 09-12-2024 29 Addended by: MIRYAM BELLAMY on: 09/12/2024 03:26 PM Modules accepted: Orders Normal [facility] 36on 09-12-2024 36 Prep for proc completed. Normal [facility] 36 Labs scanned in under Media Normal [facility] 36 I called and request ed labs. She is faxing them over. Normal [facility] Absolute lymphocyte counton 09-11-2024 Lymphocytes Auto (Unsp spec) [#/Vol] 1.60 10*3/uL 0.83-4.51 [facility] Absolute neutrophil counton 09-11-2024 Neutrophils (Bld) [#/Vol] 5.9 10*3/uL 2.0-7.7 [facility] Anion gap in Serum or Plasma on 09-11-2024 Anion gap [Moles/Vol] 11 mmol/L 5-15 [facility] Automated lymphocyte count a s percentage of total leukocyteson 09-11-2024 Lymphocytes/100 WBC Auto (Unsp spec) 19.6 % 19- [facility] BUN/creatinine ratioon 09-11 Urea nitrogen/Creatinine [Mass ratio] 12.8 mg/mg 10-20 [facility] Basophil percentageon 2024 Basophils/100 WBC (Bld) 0.5 % 0-1 [facility] Bilirubin, totalon Bilirubin [Mass/Vol] 0.92 mg/dL 0.00-1.30 [facility] CBC W/Diff, Automatedon 08-23 Absolute Lymph 1.60 X10 3/uL Normal 0.83-4.51 [facility] Comment on above: Performed By: #### L 503.6150, L506.1000, L506.0250, L501.5200, L501.2300, L500.4100, L509.1000, L500.4050, L503.0105, L503.6075, L100.0100, L503.6550, L501.9520 #### [facility] [address] [place], [address] Absolute Neut 5.9 X10 3/uL Normal 2.0-7.7 [facility] Comment on above: Performed By: #### L 503.6150, L506.1000, L506.0250, L501.5200, L501.2300, L500.4100, L509.1000, L500.4050, L503.0105, L503.6075, L100.0100, L503.6550, L501.9520 #### [facility] [address] [place], [address] Basophils/100 WBC (Bld) 0.5 % Normal 0-1 [facility] Comment on above: Performed By: #### L 503.6150, L506.1000, L506.0250, L501.5200, L501.2300, L500.4100, L509.1000, L500.4050, L503.0105, L503.6075, L100.0100, L503.6550, L501.9520 #### [facility] [address] [place], [address] Eosinophils/100 WBC (Bld) 0.7 % Normal 0-5 [facility] Comment on above: Performed By: #### L 503.6150, L506.1000, L506.0250, L501.5200, L501.2300, L500.4100, L509.1000, L500.4050, L503.0105, L503.6075, L100.0100, L503.6550, L501.9520 #### [facility] [address] [place], [address] Erythrocyte distribution width (RBC) [Ratio] 14.4 % Normal 11.6-14.6 [facility] Comment on above: Performed By: #### L 503.6150, L506.1000, L506.0250, L501.5200, L501.2300, L500.4100, L509.1000, L500.4050, L503.0105, L503.6075, L100.0100, L503.6550, L501.9520 #### [facility] [address], [address] Hematocrit (Bld) [Volume fraction] 42.1 % Normal 40-54 [facility] Comment on above: Performed By: #### L 503.6150, L506.1000, L506.0250, L501.5200, L501.2300, L500.4100, L509.1000, L500.4050, L503.0105, L503.6075, L100.0100, L503.6550, L501.9520 #### [facility] [address] [place], [place], [id number] Hemoglobin (Bld) [Mass/Vol] 14.0 g/dL Normal 13.0-16.5 [facility] Comment on above: Performed By: #### L 503.6150, L506.1000, L506.0250, L501.5200, L501.2300, L500.4100, L509.1000, L500.4050, L503.0105, L503.6075, L100.0100, L503.6550, L501.9520 #### [facility] [address] [place], [place], [id number] (997) IG% 0.500 Normal 0.0-0.9 [facility] Comment on above: Result Comment: IG% - Immature Granulocytes (promyelocytes, myelocytes and metamyelocytes) > 1% indicates that a LEFT SHIFT is Present. Performed By: #### L 503.6150, L506.1000, L506.0250, L501.5200, L501.2300, L500.4100, L509.1000, L500.4050, L503.0105, L503.6075, L100.0100, L503.6550, L501.9520 #### [facility] [address] [place], [address] Lymphocytes/100 WBC (Bld) 19.6 % Normal 19-41 [facility] Comment on above: Performed By: #### L 503.6150, L506.1000, L506.0250, L501.5200, L501.2300, L500.4100, L509.1000, L500.4050, L503.0105, L503.6075, L100.0100, L503.6550, L501.9520 #### [facility] [address] [place], [address] MCH (RBC) [Entitic mass] 30.2 pg Normal 27.0-32.0 [facility] Comment on above: Performed By: #### L 503.6150, L506.1000, L506.0250, L501.5200, L501.2300, L500.4100, L509.1000, L500.4050, L503.0105, L503.6075, L100.0100, L503.6550, L501.9520 #### [facility] [address] [place], [address] MCHC (RBC) [Mass/Vol] 33.3 g/dL Normal 32-36 [facility] Comment on above: Performed By: #### L 503.6150, L506.1000, L506.0250, L501.5200, L501.2300, L500.4100, L509.1000, L500.4050, L503.0105, L503.6075, L100.0100, L503.6550, L501.9520 #### [facility] [address] [place], [address] MCV (RBC) [Entitic vol] 90.7 fL Normal 80-94 [facility] Comment on above: Performed By: #### L 503.6150, L506.1000, L506.0250, L501.5200, L501.2300, L500.4100, L509.1000, L500.4050, L503.0105, L503.6075, L100.0100, L503.6550, L501.9520 #### [facility] [address] [place], [address] Monocytes/100 WBC (Bld) 6.4 % Normal 0-10 [facility] Comment on above: Performed By: #### L 503.6150, L506.1000, L506.0250, L501.5200, L501.2300, L500.4100, L509.1000, L500.4050, L503.0105, L503.6075, L100.0100, L503.6550, L501.9520 #### [facility] [facility] [place], [address] Neutrophils/100 WBC (Bld) 72.3 % High 47-70 [facility] Comment on above: Performed By: #### L 503.6150, L506.1000, L506.0250, L501.5200, L501.2300, L500.4100, L509.1000, L500.4050, L503.0105, L503.6075, L100.0100, L503.6550, L501.9520 #### [facility] [address] [place], [address] Nucleated RBC (Bld) [#/Vol] 0 10*3/uL Normal 0-5 [facility] Comment on above: Performed By: #### L 503.6150, L506.1000, L506.0250, L501.5200, L501.2300, L500.4100, L509.1000, L500.4050, L503.0105, L503.6075, L100.0100, L503.6550, L501.9520 #### [facility] [address] [place], [address] Platelet mean volume (Bld) [Entitic vol] 9.6 fL Normal 6.2-12.0 [facility] Comment on above: Performed By: #### L 503.6150, L506.1000, L506.0250, L501.5200, L501.2300, L500.4100, L509.1000, L500.4050, L503.0105, L503.6075, L100.0100, L503.6550, L501.9520 #### [facility] [address] [place], [address] Platelets (Bld) [#/Vol] 249 10*3/uL Normal 150-450 [facility] Comment on above: Performed By: #### L 503.6150, L506.1000, L506.0250, L501.5200, L501.2300, L500.4100, L509.1000, L500.4050, L503.0105, L503.6075, L100.0100, L503.6550, L501.9520 #### [facility] [address] [place], [address] RBC (Bld) [#/Vol] 4.64 10*6/uL Normal 4.6-6.2 [facility] Comment on above: Performed By: #### L 503.6150, L506.1000, L506.0250, L501.5200, L501.2300, L500.4100, L509.1000, L500.4050, L503.0105, L503.6075, L100.0100, L503.6550, L501.9520 #### [facility] [address] [place], [address] RDW SD 47.8 fl High 35.1-43.9 [facility] Comment on above: Performed By: #### L 503.6150, L506.1000, L506.0250, L501.5200, L501.2300, L500.4100, L509.1000, L500.4050, L503.0105, L503.6075, L100.0100, L503.6550, L501.9520 #### [facility] [address] [place], [address] WBC (Bld) [#/Vol] 8.2 10*3/uL Normal 4.4-11.0 [facility] Comment on above: Performed By: #### L 503.6150, L506.1000, L506.0250, L501.5200, L501.2300, L500.4100, L509.1000, L500.4050, L503.0105, L503.6075, L100.0100, L503.6550, L501.9520 #### [facility] [address] [place], [address] Absolute Neut Normal 2.0-7.7 [facility] Comment on above: Order Comment: Order Date: 04/28/24 Order Info: 2132-9 - B12 Order Info: 09700-9 - VITD25 Result Comment: PT A LREADY AHD DONE Performed By: #### L 503.6150, L506.1000, L506.0250, L501.5200, L501.2300, L500.4100, L509.1000, L500.4050, L503.0105, L503.6075, L100.0100, L503.6550, L501.9520 #### [facility] [address] [place], [address] HCT Normal 40-54 [facility] Comment on above: Order Comment: Order Date: 04/28/24 Order Info: 2132-9 - B12 Order Info: 60658-1 - VITD25 Result Comment: PT A LREADY AHD DONE Performed By: #### L 503.6150, L506.1000, L506.0250, L501.5200, L501.2300, L500.4100, L509.1000, L500.4050, L503.0105, L503.6075, L100.0100, L503.6550, L501.9520 #### [facility] [address] [place], [place], [id number] HGB Normal 13.0-16.5 [facility] Comment on above: Order Comment: Order Date: 04/28/24 Order Info: 2132-01 - B12 Order Info: [id number] - VITD25 Result Comment: PT A LREADY AHD DONE Performed By: #### L 503.6150, L506.1000, L506.0250, L501.5200, L501.2300, L500.4100, L509.1000, L500.4050, L503.0105, L503.6075, L100.0100, L503.6550, L501.9520 #### [facility] [address] [place], [place], [phone] (345) MCH Normal 27.0-32.0 [facility] Comment on above: Order Comment: Order Date: 04/28/24 Order Info: 2132-01 - B12 Order Info: [id number] - VITD25 Result Comment: PT A LREADY AHD DONE Performed By: #### L 503.6150, L506.1000, L506.0250, L501.5200, L501.2300, L500.4100, L509.1000, L500.4050, L503.0105, L503.6075, L100.0100, L503.6550, L501.9520 #### [facility] [address] [place], [place], [phone] (992) MCHC Normal 32-36 [facility] Comment on above: Order Comment: Order Date: 04/28/24 Order Info: 2132-01 - B12 Order Info: 43192-4 - VITD25 Result Comment: PT A LREADY AHD DONE Performed By: #### L 503.6150, L506.1000, L506.0250, L501.5200, L501.2300, L500.4100, L509.1000, L500.4050, L503.0105, L503.6075, L100.0100, L503.6550, L501.9520 #### [facility] [address] [place], [place], [address] (567) MCV Normal 80-94 [facility] Comment on above: Order Comment: Order Date: 04/28/24 Order Info: 2132-01 - B12 Order Info: 62542-1 - VITD25 Result Comment: PT A LREADY AHD DONE Performed By: #### L 503.6150, L506.1000, L506.0250, L501.5200, L501.2300, L500.4100, L509.1000, L500.4050, L503.0105, L503.6075, L100.0100, L503.6550, L501.9520 #### [facility] [address] [place], [place], [phone] (648) NEUT% Normal 47-70 [facility] Comment on above: Order Comment: Order Date: 04/28/24 Order Info: 2132-01 - B12 Order Info: 50161-0 - VITD25 Result Comment: PT A LREADY AHD DONE Performed By: #### L 503.6150, L506.1000, L506.0250, L501.5200, L501.2300, L500.4100, L509.1000, L500.4050, L503.0105, L503.6075, L100.0100, L503.6550, L501.9520 #### [facility] [address] [place], [place], [phone] (319) PLT Normal 150-450 [facility] Comment on above: Order Comment: Order Date: 04/28/24 Order Info: 2132-01 - B12 Order Info: 90919-0 - VITD25 Result Comment: PT A LREADY AHD DONE Performed By: #### L 503.6150, L506.1000, L506.0250, L501.5200, L501.2300, L500.4100, L509.1000, L500.4050, L503.0105, L503.6075, L100.0100, L503.6550, L501.9520 #### [facility] [address] [place], [address] RBC Normal 4.6-6.2 [facility] Comment on above: Order Comment: Order Date: 04/28/24 Order Info: 9 - B12 Order Info: 04918-6 - VITD25 Result Comment: PT A LREADY AHD DONE Performed By: #### L 503.6150, L506.1000, L506.0250, L501.5200, L501.2300, L500.4100, L509.1000, L500.4050, L503.0105, L503.6075, L100.0100, L503.6550, L501.9520 #### [facility] [address] [place], [address] RDW CV Normal 11.6-14.6 [facility] Comment on above: Order Comment: Order Date: 04/28/24 Order Info: 2132-01 - B12 Order Info: [id number] - VITD25 Result Comment: PT A LREADY AHD DONE Performed By: #### L 503.6150, L506.1000, L506.0250, L501.5200, L501.2300, L500.4100, L509.1000, L500.4050, L503.0105, L503.6075, L100.0100, L503.6550, L501.9520 #### [facility] [address] [place], [address] RDW SD Normal 35.1-43.9 [facility] Comment on above: Order Comment: Order Date: 04/28/24 Order Info: 2132-01 - B12 Order Info: 61063-3 - VITD25 Result Comment: PT A LREADY AHD DONE Performed By: #### L 503.6150, L506.1000, L506.0250, L501.5200, L501.2300, L500.4100, L509.1000, L500.4050, L503.0105, L503.6075, L100.0100, L503.6550, L501.9520 #### [facility] [address] [place], [place], [id number] WBC Normal 4.4-11.0 [facility] Comment on above: Order Comment: Order Date: 04/28/24 Order Info: 2132-9 - B12 Order Info: 29441-5 - VITD25 Result Comment: PT A MONIQUE AHD DONE Performed By: #### L 503.6150, L506.1000, L506.0250, L501.5200, L501.2300, L500.4100, L509.1000, L500.4050, L503.0105, L503.6075, L100.0100, L503.6550, L501.9520 #### [facility] [address] [place], [place], [phone] Carbon dioxide, total [Moles /volume] in Central venous bloodon 09-11-2024 CO2 [Moles/Vol] 24.9 mmol/L 21.0-32.0 [facility] Chloride assayon 09-11-2024 Chloride [Moles/Vol] 102 mmol/L 98-108 [facility] Comprehensive Metabolic Prof ilon 09-11-2024 Albumin [Mass/Vol] 4.3 g/dL Normal 3.4-4.8 [facility] Comment on above: Performed By: #### L 503.6150, L506.1000, L506.0250, L501.5200, L501.2300, L500.4100, L509.1000, L500.4050, L503.0105, L503.6075, L100.0100, L503.6550, L501.9520 #### [facility] [address] [place], [place], [phone] Albumin/Globulin [Mass ratio] 1.5 {ratio} Normal 0.9-2.4 [facility] Comment on above: Performed By: #### L 503.6150, L506.1000, L506.0250, L501.5200, L501.2300, L500.4100, L509.1000, L500.4050, L503.0105, L503.6075, L100.0100, L503.6550, L501.9520 #### [facility] [address] [place], [place], [id number] ALK PHOS 103 U/L Normal 40-129 [facility] Comment on above: Performed By: #### L 503.6150, L506.1000, L506.0250, L501.5200, L501.2300, L500.4100, L509.1000, L500.4050, L503.0105, L503.6075, L100.0100, L503.6550, L501.9520 #### [facility] [address] [place], [place], [id number] ALT [Catalytic activity/Vol] 22 U/L Normal <=46 [facility] Comment on above: Performed By: #### L 503.6150, L506.1000, L506.0250, L501.5200, L501.2300, L500.4100, L509.1000, L500.4050, L503.0105, L503.6075, L100.0100, L503.6550, L501.9520 #### [facility] [address] [place], [address] AST [Catalytic activity/Vol] 17 U/L Normal <=37 [facility] Comment on above: Performed By: #### L 503.6150, L506.1000, L506.0250, L501.5200, L501.2300, L500.4100, L509.1000, L500.4050, L503.0105, L503.6075, L100.0100, L503.6550, L501.9520 #### [facility] [address] [place], [address] Bilirubin [Mass/Vol] 0.92 mg/dL Normal 0.00-1.30 [facility] Comment on above: Performed By: #### L 503.6150, L506.1000, L506.0250, L501.5200, L501.2300, L500.4100, L509.1000, L500.4050, L503.0105, L503.6075, L100.0100, L503.6550, L501.9520 #### [facility] [address] [place], [place], [phone] (133 BUN/CRE 12.8 RATIO Normal 10-20 [facility] Comment on above: Performed By: #### L 503.6150, L506.1000, L506.0250, L501.5200, L501.2300, L500.4100, L509.1000, L500.4050, L503.0105, L503.6075, L100.0100, L503.6550, L501.9520 #### [facility] [address] [place], [place], [phone] (764 Calcium [Mass/Vol] 9.2 mg/dL Normal 7.6-11.0 [facility] Comment on above: Performed By: #### L 503.6150, L506.1000, L506.0250, L501.5200, L501.2300, L500.4100, L509.1000, L500.4050, L503.0105, L503.6075, L100.0100, L503.6550, L501.9520 #### [facility] [address] [place], [address] Chloride [Moles/Vol] 102 mmol/L Normal 98-108 [facility] Comment on above: Performed By: #### L 503.6150, L506.1000, L506.0250, L501.5200, L501.2300, L500.4100, L509.1000, L500.4050, L503.0105, L503.6075, L100.0100, L503.6550, L501.9520 #### [facility] [address] [place], [place], [phone] (796) CO2 [Moles/Vol] 24.9 mmol/L Normal 21.0-32.0 [facility] Comment on above: Performed By: #### L 503.6150, L506.1000, L506.0250, L501.5200, L501.2300, L500.4100, L509.1000, L500.4050, L503.0105, L503.6075, L100.0100, L503.6550, L501.9520 #### [facility] [address] [place], [place], [id number] Creatinine [Mass/Vol] 1.55 mg/dL High 0.70-1.20 [facility] Comment on above: Performed By: #### L 503.6150, L506.1000, L506.0250, L501.5200, L501.2300, L500.4100, L509.1000, L500.4050, L503.0105, L503.6075, L100.0100, L503.6550, L501.9520 #### [facility] [address] [place], [place], [id number] GAP 11 Normal 5-15 [facility] Comment on above: Performed By: #### L 503.6150, L506.1000, L506.0250, L501.5200, L501.2300, L500.4100, L509.1000, L500.4050, L503.0105, L503.6075, L100.0100, L503.6550, L501.9520 #### [facility] [address] [facility] [place], [place], [phone] (568) GFR/1.73 sq M.predicted among non-blacks MDRD (S/P/Bld) [Vol rate/Area] 48 mL/min/{1.73_m2} Low >60 [facility] Comment on above: Result Comment: mL/m in/1.73m2 CKD-EPI Creatinine Equation (2020) Performed By: #### L 503.6150, L506.1000, L506.0250, L501.5200, L501.2300, L500.4100, L509.1000, L500.4050, L503.0105, L503.6075, L100.0100, L503.6550, L501.9520 #### [facility] [address] [place], [place], [phone] (512) Globulin (S) [Mass/Vol] 2.9 g/dL Normal 2.2-4.2 [facility] Comment on above: Performed By: #### L 503.6150, L506.1000, L506.0250, L501.5200, L501.2300, L500.4100, L509.1000, L500.4050, L503.0105, L503.6075, L100.0100, L503.6550, L501.9520 #### [facility] [address] [facility] [place], [place], [id number] (875) Glucose [Mass/Vol] 122 mg/dL High 70-99 [facility] Comment on above: Performed By: #### L 503.6150, L506.1000, L506.0250, L501.5200, L501.2300, L500.4100, L509.1000, L500.4050, L503.0105, L503.6075, L100.0100, L503.6550, L501.9520 #### [facility] [address] [facility] [place], [place], [id number] (933) Potassium [Moles/Vol] 4.1 mmol/L Normal 3.3-5.1 [facility] Comment on above: Performed By: #### L 503.6150, L506.1000, L506.0250, L501.5200, L501.2300, L500.4100, L509.1000, L500.4050, L503.0105, L503.6075, L100.0100, L503.6550, L501.9520 #### [facility] [address] [place], [address] Sodium [Moles/Vol] 138 mmol/L Normal 133-145 [facility] Comment on above: Performed By: #### L 503.6150, L506.1000, L506.0250, L501.5200, L501.2300, L500.4100, L509.1000, L500.4050, L503.0105, L503.6075, L100.0100, L503.6550, L501.9520 #### [facility] [address] [place], [place], [phone] (267) T PROT 7.2 g/dL Normal 5.9-8.4 [facility] Comment on above: Performed By: #### L 503.6150, L506.1000, L506.0250, L501.5200, L501.2300, L500.4100, L509.1000, L500.4050, L503.0105, L503.6075, L100.0100, L503.6550, L501.9520 #### [facility] [address] [place], [place], [id number] (194) Urea nitrogen [Mass/Vol] 20 mg/dL High 4-19 [facility] Comment on above: Performed By: #### L 503.6150, L506.1000, L506.0250, L501.5200, L501.2300, L500.4100, L509.1000, L500.4050, L503.0105, L503.6075, L100.0100, L503.6550, L501.9520 #### [facility] [address] [place], [place], [phone] (824) ALB Normal 3.4-4.8 [facility] Comment on above: Order Comment: Order Date: 04/28/24 Order Info: 2132-01 Order Info: 48075-9 - VITD25 Result Comment: PT A LREADY AHD DONE Performed By: #### L 503.6150, L506.1000, L506.0250, L501.5200, L501.2300, L500.4100, L509.1000, L500.4050, L503.0105, L503.6075, L100.0100, L503.6550, L501.9520 #### [facility] [address] [place], [place], [id number] ALK PHOS Normal 40-129 [facility] Comment on above: Order Comment: Order Date: 04/28/24 Order Info: 2132-01 Order Info: 99279-2 - VITD25 Result Comment: PT A LREADY AHD DONE Performed By: #### L 503.6150, L506.1000, L506.0250, L501.5200, L501.2300, L500.4100, L509.1000, L500.4050, L503.0105, L503.6075, L100.0100, L503.6550, L501.9520 #### [facility] [address] [place], [place], [phone] (875) ALT Normal <=46 [facility] Comment on above: Order Comment: Order Date: 04/28/24 Order Info: 2132-01 Order Info: 68512-5 - VITD25 Result Comment: PT A LREADY AHD DONE Performed By: #### L 503.6150, L506.1000, L506.0250, L501.5200, L501.2300, L500.4100, L509.1000, L500.4050, L503.0105, L503.6075, L100.0100, L503.6550, L501.9520 #### [facility] [address] [place], [place], [id number] AST Normal <=37 [facility] Comment on above: Order Comment: Order Date: 04/28/24 Order Info: 2132-01 B12 Order Info: 44369-8 - VITD25 Result Comment: PT A LREADY AHD DONE Performed By: #### L 503.6150, L506.1000, L506.0250, L501.5200, L501.2300, L500.4100, L509.1000, L500.4050, L503.0105, L503.6075, L100.0100, L503.6550, L501.9520 #### [facility] [address] [place], [place], [id number] (720) BUN Normal 4-19 [facility] Comment on above: Order Comment: Order Date: 04/28/24 Order Info: 2132-01 Order Info: 06278-9 - VITD25 Result Comment: PT A LREADY AHD DONE Performed By: #### L 503.6150, L506.1000, L506.0250, L501.5200, L501.2300, L500.4100, L509.1000, L500.4050, L503.0105, L503.6075, L100.0100, L503.6550, L501.9520 #### [facility] [address] [place], [place], [address] (069) BUN/CRE Normal 10-20 [facility] Comment on above: Order Comment: Order Date: 04/28/24 Order Info: 2132-01 Order Info: 15383-7 - VITD25 Result Comment: PT A LREADY AHD DONE Performed By: #### L 503.6150, L506.1000, L506.0250, L501.5200, L501.2300, L500.4100, L509.1000, L500.4050, L503.0105, L503.6075, L100.0100, L503.6550, L501.9520 #### [facility] [address] [place], [place], [id number] Calcium Normal 7.6-11.0 [facility] Comment on above: Order Comment: Order Date: 04/28/24 Order Info: 2132-01 B12 Order Info: 56029-0 - VITD25 Result Comment: PT A LREADY AHD DONE Performed By: #### L 503.6150, L506.1000, L506.0250, L501.5200, L501.2300, L500.4100, L509.1000, L500.4050, L503.0105, L503.6075, L100.0100, L503.6550, L501.9520 #### [facility] [address] [place], [place], [id number] CL Normal 98-108 [facility] Comment on above: Order Comment: Order Date: 04/28/24 Order Info: 2132-01 B12 Order Info: 78072-5 - VITD25 Result Comment: PT A LREADY AHD DONE Performed By: #### L 503.6150, L506.1000, L506.0250, L501.5200, L501.2300, L500.4100, L509.1000, L500.4050, L503.0105, L503.6075, L100.0100, L503.6550, L501.9520 #### [facility] [address] [place], [place], [phone] CO2 Normal 21.0-32.0 [facility] Comment on above: Order Comment: Order Date: 04/28/24 Order Info: 2132-01 B12 Order Info: 50470-7 - VITD25 Result Comment: PT A LREADY AHD DONE Performed By: #### L 503.6150, L506.1000, L506.0250, L501.5200, L501.2300, L500.4100, L509.1000, L500.4050, L503.0105, L503.6075, L100.0100, L503.6550, L501.9520 #### [facility] [address] [place], [place], [id number] CREAT,SERUM Normal 0.70-1.20 [facility] Comment on above: Order Comment: Order Date: 04/28/24 Order Info: 2132-01 - B12 Order Info: 00597-0 - VITD25 Result Comment: PT A LREADY AHD DONE Performed By: #### L 503.6150, L506.1000, L506.0250, L501.5200, L501.2300, L500.4100, L509.1000, L500.4050, L503.0105, L503.6075, L100.0100, L503.6550, L501.9520 #### [facility] [address] [place], [place], [id number] eGFR Normal >60 [facility] Comment on above: Order Comment: Order Date: 04/28/24 Order Info: 2132-01 B12 Order Info: 28644-0 - VITD25 Result Comment: PT A LREADY AHD DONE Performed By: #### L 503.6150, L506.1000, L506.0250, L501.5200, L501.2300, L500.4100, L509.1000, L500.4050, L503.0105, L503.6075, L100.0100, L503.6550, L501.9520 #### [facility] [address] [place], [place], [id number] GAP Normal 5-15 [facility] Comment on above: Order Comment: Order Date: 04/28/24 Order Info: 2132-01 - B12 Order Info: 68974-1 - VITD25 Result Comment: PT A LREADY AHD DONE Performed By: #### L 503.6150, L506.1000, L506.0250, L501.5200, L501.2300, L500.4100, L509.1000, L500.4050, L503.0105, L503.6075, L100.0100, L503.6550, L501.9520 #### [facility] [address] [place], [address] GLU Normal 70-99 [facility] Comment on above: Order Comment: Order Date: 04/28/24 Order Info: 2132-01 - B12 Order Info: 42843-1 - VITD25 Result Comment: PT A LREADY AHD DONE Performed By: #### L 503.6150, L506.1000, L506.0250, L501.5200, L501.2300, L500.4100, L509.1000, L500.4050, L503.0105, L503.6075, L100.0100, L503.6550, L501.9520 #### [facility] [address] [place], [place], [phone] (166) Potassium Normal 3.3-5.1 [facility] Comment on above: Order Comment: Order Date: 04/28/24 Order Info: 2132-01 B12 Order Info: 62742-7 - VITD25 Result Comment: PT A LREADY AHD DONE Performed By: #### L 503.6150, L506.1000, L506.0250, L501.5200, L501.2300, L500.4100, L509.1000, L500.4050, L503.0105, L503.6075, L100.0100, L503.6550, L501.9520 #### [facility] [address] [place], [address] T BILI Normal 0.00-1.30 [facility] Comment on above: Order Comment: Order Date: 04/28/24 Order Info: 2132-01 - B12 Order Info: 31658-5 - VITD25 Result Comment: PT A LREADY AHD DONE Performed By: #### L 503.6150, L506.1000, L506.0250, L501.5200, L501.2300, L500.4100, L509.1000, L500.4050, L503.0105, L503.6075, L100.0100, L503.6550, L501.9520 #### [facility] [address] [place], [place], [phone] T PROT Normal 5.9-8.4 [facility] Comment on above: Order Comment: Order Date: 04/28/24 Order Info: 2131-9 - B12 Order Info: [id number] - VITD25 Result Comment: PT A LREADY AHD DONE Performed By: #### L 503.6150, L506.1000, L506.0250, L501.5200, L501.2300, L500.4100, L509.1000, L500.4050, L503.0105, L503.6075, L100.0100, L503.6550, L501.9520 #### [facility] [address] [place], [place], [id number] Comprehensive Metabolic Profil Normal 133-145 [facility] Comment on above: Order Comment: Order Date: 04/28/24 Order Info: [id number] - B12 Order Info: [id number] - VITD25 Result Comment: PT A LREADY AHD DONE Performed By: #### L 503.6150, L506.1000, L506.0250, L501.5200, L501.2300, L500.4100, L509.1000, L500.4050, L503.0105, L503.6075, L100.0100, L503.6550, L501.9520 #### [facility] [address] [place], [place], [id number] Eosinophil percentageon -2 Eosinophils/100 WBC (Bld) 0.7 % 0-5 [facility] Erythrocyte distribution wid th ratioon - Erythrocyte distribution width (RBC) [Ratio] 14.4 % 11.6-14.6 [facility] Erythrocyte distribution wid th standard deviationon 09-11-2024 Erythrocyte distribution width (RBC) [Ratio] 47.8 fl High 35.1-43.9 [facility] Glomerular filtration rate ( GFR) estimation/1.73 sq m using serum, plasma, or whole bon 09-11-2024 GFR/1.73 sq M.predicted among non-blacks MDRD (S/P/Bld) [Vol rate/Area] 48 mL/min/{1.73_m2} Low >60 [facility] Comment on above: mL/min/1.73m2 CKD-EP I Creatinine Equation (2020) Hematocrit Auto (Bld) [Volum e fraction]on 09-11-2024 Hematocrit (Bld) [Volume fraction] 42.1 % 40-54 [facility] Hemoglobin measurementon Hemoglobin (Bld) [Mass/Vol] 14.0 g/dL 13.0-16.5 [facility] Immature granulocytes/100 WB C Auto (Bld)on 09-11-2024 Immature granulocytes/100 WBC (Bld) 0.500 % 0.0-0.9 [facility] Comment on above: IG% - Immature Granu locytes (promyelocytes, myelocytes and metamyelocytes) > 1% indicates that a LEFT SHIFT is Present. Laboratory - Chemistry and C hemistry - challengeon 09-11-2024 AST [Catalytic activity/Vol] 17 U/L <38 [facility] Lipid Profileon 09-11-2024 TRIG Normal [facility] Comment on above: Order Comment: Order Date: 04/28/24 Order Info: [id number] - B12 Order Info: [id number] - VITD25 Result Comment: PT A LREADY AHD DONE The drugs N-Acetylcysteine and Metamizole may falsely depress this assay. Performed By: #### L 503.6150, L506.1000, L506.0250, L501.5200, L501.2300, L500.4100, L509.1000, L500.4050, L503.0105, L503.6075, L100.0100, L503.6550, L501.9520 #### [facility] [address] [place], [address] CHOL Normal <=200 [facility] Comment on above: Order Comment: Order Date: 04/28/24 Order Info: [id number] B12 Order Info: [id number] - VITD25 Result Comment: PT A LREADY AHD DONE Performed By: #### L 503.6150, L506.1000, L506.0250, L501.5200, L501.2300, L500.4100, L509.1000, L500.4050, L503.0105, L503.6075, L100.0100, L503.6550, L501.9520 #### [facility] [facility] [address] [place], [place], [address] CHOL:HDL Normal [facility] Comment on above: Order Comment: Order Date: 04/28/24 Order Info: 2132-01 B12 Order Info: [id number] - VITD25 Result Comment: PT A LREADY AHD DONE Performed By: #### L 503.6150, L506.1000, L506.0250, L501.5200, L501.2300, L500.4100, L509.1000, L500.4050, L503.0105, L503.6075, L100.0100, L503.6550, L501.9520 #### [facility] [address] [place], [place], [address] CLDL Normal [facility] Comment on above: Order Comment: Order Date: 04/28/24 Order Info: 2132-01 B12 Order Info: [id number] - VITD25 Result Comment: PT A LREADY AHD DONE Performed By: #### L 503.6150, L506.1000, L506.0250, L501.5200, L501.2300, L500.4100, L509.1000, L500.4050, L503.0105, L503.6075, L100.0100, L503.6550, L501.9520 #### [facility] [address] [place], [address] HDL Normal [facility] Comment on above: Order Comment: Order Date: 04/28/24 Order Info: [id number] - B12 Order Info: [id number] - VITD25 Result Comment: PT A LREADY AHD DONE Performed By: #### L 503.6150, L506.1000, L506.0250, L501.5200, L501.2300, L500.4100, L509.1000, L500.4050, L503.0105, L503.6075, L100.0100, L503.6550, L501.9520 #### [facility] [address] [place], [place], [address] VLDL Normal 5-40 [facility] Comment on above: Order Comment: Order Date: 04/28/24 Order Info: [id number] - B12 Order Info: [id number] - VITD25 Result Comment: PT A LREADY AHD DONE Performed By: #### L 503.6150, L506.1000, L506.0250, L501.5200, L501.2300, L500.4100, L509.1000, L500.4050, L503.0105, L503.6075, L100.0100, L503.6550, L501.9520 #### [facility] [address] [place], [place], [address] MCV (mean corpuscular volume ) determinationon 09-11-2024 MCV (RBC) [Entitic vol] 90.7 fL 80-94 [facility] Mean corpuscular hemoglobin (MCH) determinationon 09-11-2024 MCH (RBC) [Entitic mass] 30.2 pg 27.0-32.0 [facility] Mean corpuscular hemoglobin concentration (MCHC) determinationon 09-11-2024 MCHC (RBC) [Mass/Vol] 33.3 g/dL 32-36 [facility] Mean platelet volume determi nationon 09-11-2024 Platelet mean volume (Bld) [Entitic vol] 9.6 fL 6.2-12.0 [facility] Monocyte percentageon 2024 Monocytes/100 WBC (Bld) 6.4 % 0-10 [facility] Neutrophil percentageon 04-2 -2024 Neutrophils/100 WBC (Bld) 72.3 % High 47-70 [facility] Nucleated red blood cell per centageon 09-11-2024 Nucleated RBC/100 WBC (Bld) [Ratio] 0 % 0-5 [facility] Platelet counton 09-11-2024 Platelets (Bld) [#/Vol] 249 10*3/uL 150-450 [facility] Potassium measurement (mass/ volume)on 09-11-2024 Potassium (Unsp spec) [Mass/Vol] 4.1 mmol/L 3.3-5.1 [facility] Protein+Creatinine Ratio,Uri neon 09-11-2024 PROT:CRE RATIO Normal 0-200 [facility] Comment on above: Result Comment: PT A LREADY AHD DONE Performed By: #### L 503.6150, L506.1000, L506.0250, L501.5200, L501.2300, L500.4100, L509.1000, L500.4050, L503.0105, L503.6075, L100.0100, L503.6550, L501.9520 #### [facility] [address] [facility] [place], [address] PROTEIN,UR.RAN. Normal 0.0-12.0 [facility] Comment on above: Result Comment: PT A LREADY AHD DONE Performed By: #### L 503.6150, L506.1000, L506.0250, L501.5200, L501.2300, L500.4100, L509.1000, L500.4050, L503.0105, L503.6075, L100.0100, L503.6550, L501.9520 #### [facility] [address] [place], [address] UR CREAT Normal 39.00-259. 00 [facility] Comment on above: Result Comment: PT A LREADY AHD DONE Performed By: #### L 503.6150, L506.1000, L506.0250, L501.5200, L501.2300, L500.4100, L509.1000, L500.4050, L503.0105, L503.6075, L100.0100, L503.6550, L501.9520 #### [facility] [place] [address], [address] RBC Auto (Bld) [#/Vol]on RBC (Bld) [#/Vol] 4.64 10*6/uL 4.6-6.2 [facility] Serum creatinine measurement (mass/volume)on 09-11-2024 Creatinine [Mass/Vol] 1.55 mg/dL High 0.70-1.20 [facility] Serum globulin measurementon 09-11-2024 Globulin (S) [Mass/Vol] 2.9 g/dL 2.2-4.2 [facility] Serum glucose measurement (m ass/volume)on 09-11-2024 Glucose [Mass/Vol] 122 mg/dL High 70-99 [facility] Serum or plasma alanine newman otransferase (ALT) measurementon 09-11-2024 ALT [Catalytic activity/Vol] 22 U/L <47 [facility] Serum or plasma albumin renu urement (mass/volume)on 09-11-2024 Albumin [Mass/Vol] 4.3 g/dL 3.4-4.8 [facility] Serum or plasma albumin/glob ulin mass ratioon 09-11-2024 Albumin/Globulin [Mass ratio] 1.5 {ratio} 0.9-2.4 [facility] Serum or plasma alkaline christal sphatase measurementon 09-11-2024 ALP [Catalytic activity/Vol] 103 U/L 40-129 [facility] Serum or plasma calcium renu urement (mass/volume)on 09-11-2024 Calcium [Mass/Vol] 9.2 mg/dL 7.6-11.0 [facility] Serum or plasma urea nitroge n measurement (mass/volume)on 09-11-2024 Urea nitrogen [Mass/Vol] 20 mg/dL High 4-19 [facility] Sodium levelon 09-11-2024 Sodium [Moles/Vol] 138 mmol/L 133-145 [facility] TSH DL <= 0.005 mIU/L Qnon 0 09-11-2024 TSH Qn 1.880 uIU/mL 0.300-4.20 0 [facility] Thyroid Stim Hormone (TSH)on 09-11-2024 TSH 1.880 uIU/mL Normal 0.300-4.20 0 [facility] Comment on above: Performed By: #### L 503.6150, L506.1000, L506.0250, L501.5200, L501.2300, L500.4100, L509.1000, L500.4050, L503.0105, L503.6075, L100.0100, L503.6550, L501.9520 #### [facility] [address] [place], [place], [id number] Total proteinon 09-11-2024 Protein [Mass/Vol] 7.2 g/dL 5.9-8.4 [facility] White blood cell (WBC) count on 09-11-2024 WBC (Bld) [#/Vol] 8.2 10*3/uL 4.4-11.0 [facility] 36on 09-07-2024 36 See order for LHC on 09/14/2024. Normal [facility] 36 Phone to patient, Dr Carrol [place]te[place] has reviewed his ECHO, reduce EF as compared to previous. He call the office with increased Episodes of angina. Taking more SL NTG than usual. Have max out his anti-angina medications. Holter monitor without atrial fibrillation. Low burden of PAC's and PVC's. Will need to fax order for labs to [facility]. Will add on for 09/14/2024 at 11 am., He will need an EKG the day of, has a recent OV from 08/24/2024. Notified patient of date and time. Normal [facility] Absolute lymphocyte countOrd ered By: Finn Ferrell on 08-31-2024 Lymphocytes Auto (Unsp spec) [#/Vol] 1.47 10*3/uL 0.83-4.51 [facility] Absolute neutrophil countOrd ered By: Finn Ferrell on 08-31-2024 Neutrophils (Bld) [#/Vol] 5.5 10*3/uL 2.0-7.7 [facility] Anion gap in Serum or Plasma Ordered By: Finn Ferrell on 08-31-2024 Anion gap [Moles/Vol] 12 mmol/L - [facility] Automated lymphocyte count a s percentage of total leukocytesOrdered By: Finn Ferrell on 08-31-2024 Lymphocytes/100 WBC Auto (Unsp spec) 19.5 % [facility] BUN/creatinine ratioOrdered By: Finn Ferrell on 08-31-2024 Urea nitrogen/Creatinine [Mass ratio] 13.5 mg/mg 03-12 [facility] Basophil percentageOrdered B y: Finn Ferrell on 08-31-2024 Basophils/100 WBC (Bld) 0.7 % 0- [facility] Bilirubin, totalOrdered By: Finn Ferrell on 08-31-2024 Bilirubin [Mass/Vol] 0.98 mg/dL 0.00-1.30 [facility] CBC W/Diff, Automatedon 08-22 Absolute Lymph 1.47 X10 3/uL Normal 0.83-4.51 [facility] Comment on above: Performed By: #### L 503.6150, L506.1000, L506.0250, L501.5200, L501.2300, L500.4100, L509.1000, L500.4050, L503.0105, L503.6075, L100.0100, L503.6550, L501.9520 #### [facility] [address] [facility] [place], [place], [id number] Absolute Neut 5.5 X10 3/uL Normal 2.0-7.7 [facility] Comment on above: Performed By: #### L 503.6150, L506.1000, L506.0250, L501.5200, L501.2300, L500.4100, L509.1000, L500.4050, L503.0105, L503.6075, L100.0100, L503.6550, L501.9520 #### [facility] [address] [facility] [place], [address] Basophils/100 WBC (Bld) 0.7 % Normal 0-1 [facility] Comment on above: Performed By: #### L 503.6150, L506.1000, L506.0250, L501.5200, L501.2300, L500.4100, L509.1000, L500.4050, L503.0105, L503.6075, L100.0100, L503.6550, L501.9520 #### [facility] [address] [facility] [place], [address] Eosinophils/100 WBC (Bld) 0.5 % Normal 0-5 [facility] Comment on above: Performed By: #### L 503.6150, L506.1000, L506.0250, L501.5200, L501.2300, L500.4100, L509.1000, L500.4050, L503.0105, L503.6075, L100.0100, L503.6550, L501.9520 #### [facility] [address] [facility] [place], [address] Erythrocyte distribution width (RBC) [Ratio] 14.2 % Normal 11.6-14.6 [facility] Comment on above: Performed By: #### L 503.6150, L506.1000, L506.0250, L501.5200, L501.2300, L500.4100, L509.1000, L500.4050, L503.0105, L503.6075, L100.0100, L503.6550, L501.9520 #### [facility] [address] [facility] [place], [address] Hematocrit (Bld) [Volume fraction] 42.6 % Normal 40-54 [facility] Comment on above: Performed By: #### L 503.6150, L506.1000, L506.0250, L501.5200, L501.2300, L500.4100, L509.1000, L500.4050, L503.0105, L503.6075, L100.0100, L503.6550, L501.9520 #### [facility] [address] [place], [address] Hemoglobin (Bld) [Mass/Vol] 14.0 g/dL Normal 13.0-16.5 [facility] Comment on above: Performed By: #### L 503.6150, L506.1000, L506.0250, L501.5200, L501.2300, L500.4100, L509.1000, L500.4050, L503.0105, L503.6075, L100.0100, L503.6550, L501.9520 #### [facility] [address] [facility] [place], [address] IG% 0.700 Normal 0.0-0.9 [facility] Comment on above: Result Comment: IG% - Immature Granulocytes (promyelocytes, myelocytes and metamyelocytes) > 1% indicates that a LEFT SHIFT is Present. Performed By: #### L 503.6150, L506.1000, L506.0250, L501.5200, L501.2300, L500.4100, L509.1000, L500.4050, L503.0105, L503.6075, L100.0100, L503.6550, L501.9520 #### [facility] [address] [place], [address] Lymphocytes/100 WBC (Bld) 19.5 % Normal 19-41 [facility] Comment on above: Performed By: #### L 503.6150, L506.1000, L506.0250, L501.5200, L501.2300, L500.4100, L509.1000, L500.4050, L503.0105, L503.6075, L100.0100, L503.6550, L501.9520 #### [facility] [address] [place], [address] MCH (RBC) [Entitic mass] 30.0 pg Normal 27.0-32.0 [facility] Comment on above: Performed By: #### L 503.6150, L506.1000, L506.0250, L501.5200, L501.2300, L500.4100, L509.1000, L500.4050, L503.0105, L503.6075, L100.0100, L503.6550, L501.9520 #### [facility] [address] [place], [address] MCHC (RBC) [Mass/Vol] 32.9 g/dL Normal 32-36 [facility] Comment on above: Performed By: #### L 503.6150, L506.1000, L506.0250, L501.5200, L501.2300, L500.4100, L509.1000, L500.4050, L503.0105, L503.6075, L100.0100, L503.6550, L501.9520 #### [facility] [address] [facility] [place], [address] MCV (RBC) [Entitic vol] 91.4 fL Normal 80-94 [facility] Comment on above: Performed By: #### L 503.6150, L506.1000, L506.0250, L501.5200, L501.2300, L500.4100, L509.1000, L500.4050, L503.0105, L503.6075, L100.0100, L503.6550, L501.9520 #### [facility] [address] [place], [address] Monocytes/100 WBC (Bld) 5.7 % Normal 0-10 [facility] Comment on above: Performed By: #### L 503.6150, L506.1000, L506.0250, L501.5200, L501.2300, L500.4100, L509.1000, L500.4050, L503.0105, L503.6075, L100.0100, L503.6550, L501.9520 #### [facility] [address] [place], [address] Neutrophils/100 WBC (Bld) 72.9 % High 47-70 [facility] Comment on above: Performed By: #### L 503.6150, L506.1000, L506.0250, L501.5200, L501.2300, L500.4100, L509.1000, L500.4050, L503.0105, L503.6075, L100.0100, L503.6550, L501.9520 #### [facility] [address] [place], [address] Nucleated RBC (Bld) [#/Vol] 0 10*3/uL Normal 0-5 [facility] Comment on above: Performed By: #### L 503.6150, L506.1000, L506.0250, L501.5200, L501.2300, L500.4100, L509.1000, L500.4050, L503.0105, L503.6075, L100.0100, L503.6550, L501.9520 #### [facility] [address] [place], [address] Platelet mean volume (Bld) [Entitic vol] 9.8 fL Normal 6.2-12.0 [facility] Comment on above: Performed By: #### L 503.6150, L506.1000, L506.0250, L501.5200, L501.2300, L500.4100, L509.1000, L500.4050, L503.0105, L503.6075, L100.0100, L503.6550, L501.9520 #### [facility] [address] [place], [address] Platelets (Bld) [#/Vol] 271 10*3/uL Normal 150-450 [facility] Comment on above: Performed By: #### L 503.6150, L506.1000, L506.0250, L501.5200, L501.2300, L500.4100, L509.1000, L500.4050, L503.0105, L503.6075, L100.0100, L503.6550, L501.9520 #### [facility] [address] [place], [address] RBC (Bld) [#/Vol] 4.66 10*6/uL Normal 4.6-6.2 [facility] Comment on above: Performed By: #### L 503.6150, L506.1000, L506.0250, L501.5200, L501.2300, L500.4100, L509.1000, L500.4050, L503.0105, L503.6075, L100.0100, L503.6550, L501.9520 #### [facility] [address] [place], [address] RDW SD 47.3 fl High 35.1-43.9 [facility] Comment on above: Performed By: #### L 503.6150, L506.1000, L506.0250, L501.5200, L501.2300, L500.4100, L509.1000, L500.4050, L503.0105, L503.6075, L100.0100, L503.6550, L501.9520 #### [facility] [address] [place], [address] WBC (Bld) [#/Vol] 7.5 10*3/uL Normal 4.4-11.0 [facility] Comment on above: Performed By: #### L 503.6150, L506.1000, L506.0250, L501.5200, L501.2300, L500.4100, L509.1000, L500.4050, L503.0105, L503.6075, L100.0100, L503.6550, L501.9520 #### [facility] [address] [facility] [place], [place], [id number] Calculated total iron bindin g capacityOrdered By: Finn Ferrell on 08-31-2024 Total Iron Binding Capacity 289 ug/dL 250-450 [facility] Calculated very low density lipoprotein (VLDL) cholesterol measurementOrdered By: Finn Ferrell on 08-31-2024 Calculated very low density lipoprotein (VLDL) cholesterol measurement 44 mg/dL High 5-40 [facility] VLDL Cholesterol 44 mg/dL High 5-40 [facility] Carbon dioxide, total [Moles /volume] in Central venous bloodOrdered By: Finn Ferrell on 08-31-2024 CO2 [Moles/Vol] 26.1 mmol/L 21.0-32.0 [facility] Chloride assayOrdered By: Tanika Ferrell on 08-31-2024 Chloride [Moles/Vol] 104 mmol/L 98-108 [facility] Comprehensive Metabolic Prof ilon 08-31-2024 Albumin [Mass/Vol] 4.3 g/dL Normal 3.4-4.8 [facility] Comment on above: Performed By: #### L 503.6150, L506.1000, L506.0250, L501.5200, L501.2300, L500.4100, L509.1000, L500.4050, L503.0105, L503.6075, L100.0100, L503.6550, L501.9520 #### [facility] [address] [place], [place], [id number] Albumin/Globulin [Mass ratio] 1.4 {ratio} Normal 0.9-2.4 [facility] Comment on above: Performed By: #### L 503.6150, L506.1000, L506.0250, L501.5200, L501.2300, L500.4100, L509.1000, L500.4050, L503.0105, L503.6075, L100.0100, L503.6550, L501.9520 #### [facility] [address] [place], [place], [id number] (118) ALK PHOS 100 U/L Normal 40-129 [facility] Comment on above: Performed By: #### L 503.6150, L506.1000, L506.0250, L501.5200, L501.2300, L500.4100, L509.1000, L500.4050, L503.0105, L503.6075, L100.0100, L503.6550, L501.9520 #### [facility] [place], [place], [id number] ALT [Catalytic activity/Vol] 22 U/L Normal <=46 [facility] Comment on above: Performed By: #### L 503.6150, L506.1000, L506.0250, L501.5200, L501.2300, L500.4100, L509.1000, L500.4050, L503.0105, L503.6075, L100.0100, L503.6550, L501.9520 #### [facility] [address] [place], [place], [id number] (176) AST [Catalytic activity/Vol] 21 U/L Normal <=37 [facility] Comment on above: Performed By: #### L 503.6150, L506.1000, L506.0250, L501.5200, L501.2300, L500.4100, L509.1000, L500.4050, L503.0105, L503.6075, L100.0100, L503.6550, L501.9520 #### [facility] [address] [place], [place], [phone] (880) Bilirubin [Mass/Vol] 0.98 mg/dL Normal 0.00-1.30 [facility] Comment on above: Performed By: #### L 503.6150, L506.1000, L506.0250, L501.5200, L501.2300, L500.4100, L509.1000, L500.4050, L503.0105, L503.6075, L100.0100, L503.6550, L501.9520 #### [facility] [address] [place], [address] BUN/CRE 13.5 RATIO Normal 10-20 [facility] Comment on above: Performed By: #### L 503.6150, L506.1000, L506.0250, L501.5200, L501.2300, L500.4100, L509.1000, L500.4050, L503.0105, L503.6075, L100.0100, L503.6550, L501.9520 #### [facility] [address] [place], [address] Calcium [Mass/Vol] 9.7 mg/dL Normal 7.6-11.0 [facility] Comment on above: Performed By: #### L 503.6150, L506.1000, L506.0250, L501.5200, L501.2300, L500.4100, L509.1000, L500.4050, L503.0105, L503.6075, L100.0100, L503.6550, L501.9520 #### [facility] [address] [place], [place], [id number] (134) Chloride [Moles/Vol] 104 mmol/L Normal 98-108 [facility] Comment on above: Performed By: #### L 503.6150, L506.1000, L506.0250, L501.5200, L501.2300, L500.4100, L509.1000, L500.4050, L503.0105, L503.6075, L100.0100, L503.6550, L501.9520 #### [facility] [address] [place], [address] CO2 [Moles/Vol] 26.1 mmol/L Normal 21.0-32.0 [facility] Comment on above: Performed By: #### L 503.6150, L506.1000, L506.0250, L501.5200, L501.2300, L500.4100, L509.1000, L500.4050, L503.0105, L503.6075, L100.0100, L503.6550, L501.9520 #### [facility] [address] [place], [place], [id number] (161) Creatinine [Mass/Vol] 1.59 mg/dL High 0.70-1.20 [facility] Comment on above: Performed By: #### L 503.6150, L506.1000, L506.0250, L501.5200, L501.2300, L500.4100, L509.1000, L500.4050, L503.0105, L503.6075, L100.0100, L503.6550, L501.9520 #### [facility] [address] [place], [place], [phone] (228) GAP 12 Normal 5-15 [facility] Comment on above: Performed By: #### L 503.6150, L506.1000, L506.0250, L501.5200, L501.2300, L500.4100, L509.1000, L500.4050, L503.0105, L503.6075, L100.0100, L503.6550, L501.9520 #### [facility] [address] [place], [place], [phone] (172) GFR/1.73 sq M.predicted among non-blacks MDRD (S/P/Bld) [Vol rate/Area] 47 mL/min/{1.73_m2} Low >60 [facility] Comment on above: Result Comment: mL/m in/1.73m2 CKD-EPI Creatinine Equation (2020) Performed By: #### L 503.6150, L506.1000, L506.0250, L501.5200, L501.2300, L500.4100, L509.1000, L500.4050, L503.0105, L503.6075, L100.0100, L503.6550, L501.9520 #### [facility] [address] [place], [address] Globulin (S) [Mass/Vol] 3.1 g/dL Normal 2.2-4.2 [facility] Comment on above: Performed By: #### L 503.6150, L506.1000, L506.0250, L501.5200, L501.2300, L500.4100, L509.1000, L500.4050, L503.0105, L503.6075, L100.0100, L503.6550, L501.9520 #### [facility] [address] [place], [address] Glucose [Mass/Vol] 144 mg/dL High 70-99 [facility] Comment on above: Performed By: #### L 503.6150, L506.1000, L506.0250, L501.5200, L501.2300, L500.4100, L509.1000, L500.4050, L503.0105, L503.6075, L100.0100, L503.6550, L501.9520 #### [facility] [address] [place], [address] Potassium [Moles/Vol] 4.1 mmol/L Normal 3.3-5.1 [facility] Comment on above: Performed By: #### L 503.6150, L506.1000, L506.0250, L501.5200, L501.2300, L500.4100, L509.1000, L500.4050, L503.0105, L503.6075, L100.0100, L503.6550, L501.9520 #### [facility] [address] [place], [address] Sodium [Moles/Vol] 142 mmol/L Normal 133-145 [facility] Comment on above: Performed By: #### L 503.6150, L506.1000, L506.0250, L501.5200, L501.2300, L500.4100, L509.1000, L500.4050, L503.0105, L503.6075, L100.0100, L503.6550, L501.9520 #### [facility] [address] [place], [place], [id number] (177) T PROT 7.3 g/dL Normal 5.9-8.4 [facility] Comment on above: Performed By: #### L 503.6150, L506.1000, L506.0250, L501.5200, L501.2300, L500.4100, L509.1000, L500.4050, L503.0105, L503.6075, L100.0100, L503.6550, L501.9520 #### [facility] [address] [place], [address] Urea nitrogen [Mass/Vol] 22 mg/dL High 4-19 [facility] Comment on above: Performed By: #### L 503.6150, L506.1000, L506.0250, L501.5200, L501.2300, L500.4100, L509.1000, L500.4050, L503.0105, L503.6075, L100.0100, L503.6550, L501.9520 #### [facility] [address] [place], [place], [id number] (343) Creatinine Unsp time (U) [Ma ss/Vol]Ordered By: Finn Ferrell on 08-31-2024 Creatinine (U) [Mass/Vol] 126.00 mg/dL 39.00-259. 00 [facility] Eosinophil percentageOrdered By: Finn Ferrell on 08-31-2024 Eosinophils/100 WBC (Bld) 0.5 % 0-5 [facility] Erythrocyte distribution wid th (RBC) [Ratio]Ordered By: Finn Ferrell on 08-31-2024 Erythrocyte distribution width (RBC) [Entitic vol] 47.3 fL High 35.1-43.9 [facility] Erythrocyte distribution wid th ratioOrdered By: Finn Ferrell on 08-31-2024 Erythrocyte distribution width (RBC) [Ratio] 14.2 % 11.6-14.6 [facility] Erythrocyte distribution wid th standard deviationOrdered By: Finn Ferrell on 08-31-2024 Erythrocyte distribution width (RBC) [Ratio] 47.3 fl High 35.1-43.9 [facility] Ferritinon 08-31-2024 Ferritin [Mass/Vol] 473 ng/mL High 37-417 [facility] Comment on above: Performed By: #### L 503.6150, L506.1000, L506.0250, L501.5200, L501.2300, L500.4100, L509.1000, L500.4050, L503.0105, L503.6075, L100.0100, L503.6550, L501.9520 #### [facility]. [place], [place], [id number] GFR/1.73 sq M.predicted yony g non-blacks MDRD (S/P/Bld) [Vol rate/Area]Ordered By: Finn Ferrell on 08-31-2024 Estimated GFR (MDRD) Non-Af Amer 47 Low >60 [facility] Comment on above: mL/min/1.73m2 CKD-EP I Creatinine Equation (2020) Glomerular filtration rate ( GFR) estimation/1.73 sq m using serum, plasma, or whole bOrdered By: Finn Ferrell on 08-31-2024 GFR/1.73 sq M.predicted among non-blacks MDRD (S/P/Bld) [Vol rate/Area] 47 mL/min/{1.73_m2} Low >60 [facility] Comment on above: mL/min/1.73m2 CKD-EP I Creatinine Equation (2020) Hematocrit Auto (Bld) [Volum e fraction]Ordered By: Finn Ferrell on 08-31-2024 Hematocrit (Bld) [Volume fraction] 42.6 % 40-54 [facility] Hemoglobin measurementOrdere d By: Finn Ferrell on 08-31-2024 Hemoglobin (Bld) [Mass/Vol] 14.0 g/dL 13.0-16.5 [facility] Immature granulocytes/100 WB C Auto (Bld)Ordered By: Finn Ferrell on 08-31-2024 Immature granulocytes/100 WBC (Bld) 0.700 % 0.0-0.9 [facility] Comment on above: IG% - Immature Granu locytes (promyelocytes, myelocytes and metamyelocytes) > 1% indicates that a LEFT SHIFT is Present. Iron (Unsp spec) [Mass/Mass] Ordered By: Finn Ferrell on 08-31-2024 Iron [Mass/Vol] 79 ug/dL 65-175 [facility] Iron measurement (mass/mass) Ordered By: Finn Ferrell on 08-31-2024 Iron (Unsp spec) [Mass/Mass] 79 ug/dL 65-175 [facility] Iron saturation [Mass fracti on]Ordered By: Finn Ferrell on 08-31-2024 Iron Saturation 27.0 % 9-55 [facility] Iron+Iron Binding Capacityon 08-31-2024 Iron [Mass/Vol] 79 ug/dL Normal 65-175 [facility] Comment on above: Performed By: #### L 503.6150, L506.1000, L506.0250, L501.5200, L501.2300, L500.4100, L509.1000, L500.4050, L503.0105, L503.6075, L100.0100, L503.6550, L501.9520 #### [facility] [place], [address] IRON SATURATION 27.0 Normal 9-55 [facility] Comment on above: Performed By: #### L 503.6150, L506.1000, L506.0250, L501.5200, L501.2300, L500.4100, L509.1000, L500.4050, L503.0105, L503.6075, L100.0100, L503.6550, L501.9520 #### [facility] [address] [place], [place], [id number] TIBC 289 ug/dL Normal 250-450 [facility] Comment on above: Performed By: #### L 503.6150, L506.1000, L506.0250, L501.5200, L501.2300, L500.4100, L509.1000, L500.4050, L503.0105, L503.6075, L100.0100, L503.6550, L501.9520 #### [facility] [address] [place], [place], [id number] UIBC 210 ug/dL Low 228-428 [facility] Comment on above: Performed By: #### L 503.6150, L506.1000, L506.0250, L501.5200, L501.2300, L500.4100, L509.1000, L500.4050, L503.0105, L503.6075, L100.0100, L503.6550, L501.9520 #### [facility] [address] [place], [place], [id number] LDL calc ser/plasOrdered By: Finn Ferrell on 08-31-2024 Cholesterol in LDL [Mass/Vol] 112 mg/dL [facility] Comment on above: Asrgczslmn=435-074 m g/dL & Higher Uxln=814 mg/dL or greater LDL Cholesterol, Calculated 112 mg/dL [facility] Comment on above: Tqxxqfbbha=835-366 m g/dL & Higher Hzoj=569 mg/dL or greater Laboratory - Chemistry and C hemistry - challengeOrdered By: Finn Ferrell on 08-31-2024 AST [Catalytic activity/Vol] 21 U/L <38 [facility] Lipid Profileon 08-31-2024 CHOL:HDL 3.83 Normal [facility] Comment on above: Performed By: #### L 503.6150, L506.1000, L506.0250, L501.5200, L501.2300, L500.4100, L509.1000, L500.4050, L503.0105, L503.6075, L100.0100, L503.6550, L501.9520 #### [facility] [address] [place], [address] Cholesterol [Mass/Vol] 212 mg/dL High <=200 [facility] Comment on above: Result Comment: Chol esterol level, Desirable <200 mg/dL Borderline high cholesterol 200-239 mg/dL High cholesterol >=240 mg/dL Recommendations of the NCEP Adult Treatment Panel for the following risk-cutoff thresholds for the [place] population. Performed By: #### L 503.6150, L506.1000, L506.0250, L501.5200, L501.2300, L500.4100, L509.1000, L500.4050, L503.0105, L503.6075, L100.0100, L503.6550, L501.9520 #### [facility] [address] [place], [place], [id number] (238) Cholesterol in HDL [Mass/Vol] 55 mg/dL Normal [facility] Comment on above: Result Comment: Lisa onal Cholesterol Education Program (NCEP) guidelines: <40 mg/dL: Low HDL-cholesterol (major risk factor for CHD) >= 60 mg/dL: High HDL-cholesterol (negative risk factor for CHD) HDL-cholesterol is affected by a number of factors, e.g. smoking, exercise, hormones, sex and age. Performed By: #### L 503.6150, L506.1000, L506.0250, L501.5200, L501.2300, L500.4100, L509.1000, L500.4050, L503.0105, L503.6075, L100.0100, L503.6550, L501.9520 #### [facility] [address] [place], [address] Cholesterol in LDL [Mass/Vol] 112 mg/dL Normal [facility] Comment on above: Result Comment: Bord uqciun=583-583 mg/dL Higher Cjhz=191 mg/dL or greater Performed By: #### L 503.6150, L506.1000, L506.0250, L501.5200, L501.2300, L500.4100, L509.1000, L500.4050, L503.0105, L503.6075, L100.0100, L503.6550, L501.9520 #### [facility] [address] [place], [place], [id number] ([address] Cholesterol in VLDL [Mass/Vol] 44 mg/dL High 5-40 [facility] Comment on above: Performed By: #### L 503.6150, L506.1000, L506.0250, L501.5200, L501.2300, L500.4100, L509.1000, L500.4050, L503.0105, L503.6075, L100.0100, L503.6550, L501.9520 #### [facility] [address] [place], [address] Triglyceride [Mass/Vol] 222 mg/dL High [facility] Comment on above: Result Comment: The drugs N-Acetylcysteine and Metamizole may falsely depress this assay. Normal range: <150 mg/dL Borderline High: 150-199 mg/dL High: 200-499 mg/dL Very High: >500 mg/dL Performed By: #### L 503.6150, L506.1000, L506.0250, L501.5200, L501.2300, L500.4100, L509.1000, L500.4050, L503.0105, L503.6075, L100.0100, L503.6550, L501.9520 #### [facility] [address] [place], [place], [id number] Lymphocytes Auto (Unsp spec) [#/Vol]Ordered By: Finn Ferrell on 08-31-2024 Lymphocytes (Bld) [#/Vol] 1.47 10*3/uL 0.83-4.51 [facility] Lymphocytes/100 WBC Auto (Un sp spec)Ordered By: Finn Ferrell on 08-31-2024 Lymphocytes/100 WBC (Bld) 19.5 % 19-41 [facility] MCV (mean corpuscular volume ) determinationOrdered By: Finn Ferrell on 08-31-2024 MCV (RBC) [Entitic vol] 91.4 fL 80-94 [facility] Magnesiumon 08-31-2024 Magnesium [Mass/Vol] 2.2 mg/dL Normal 1.5-2.2 [facility] Comment on above: Performed By: #### L 503.6150, L506.1000, L506.0250, L501.5200, L501.2300, L500.4100, L509.1000, L500.4050, L503.0105, L503.6075, L100.0100, L503.6550, L501.9520 #### [facility] [address] [place], [place], [id number] ([address]) Magnesium (Unsp spec) [Mass/ Vol]Ordered By: Finn Ferrell on 08-31-2024 Magnesium [Mass/Vol] 2.2 mg/dL 1.5-2.2 [facility] Magnesium measurement (mass/ volume)Ordered By: Finn Ferrell on 08-31-2024 Magnesium (Unsp spec) [Mass/Vol] 2.2 mg/dL 1.5-2.2 [facility] Mean corpuscular hemoglobin (MCH) determinationOrdered By: Finn Ferrell on 08-31-2024 MCH (RBC) [Entitic mass] 30.0 pg 27.0-32.0 [facility] Mean corpuscular hemoglobin concentration (MCHC) determinationOrdered By: Finn Ferrell on 08-31-2024 MCHC (RBC) [Mass/Vol] 32.9 g/dL 32-36 [facility] Mean platelet volume determi nationOrdered By: Finn Ferrell on 08-31-2024 Platelet mean volume (Bld) [Entitic vol] 9.8 fL 6.2-12.0 [facility] Monocyte percentageOrdered B y: Finn Ferrell on 08-31-2024 Monocytes/100 WBC (Bld) 5.7 % 0-10 [facility] Neutrophil percentageOrdered By: Finn Ferrell on 08-31-2024 Neutrophils/100 WBC (Bld) 72.9 % High 47-70 [facility] No Panel InformationOrdered By: Finn Ferrell on 08-31-2024 Unsaturated Iron Binding Capacity 210 ug/dL Low 228-428 [facility] Nucleated red blood cell per centageOrdered By: Finn Ferrell on 08-31-2024 Nucleated RBC/100 WBC (Bld) [Ratio] 0 % 0-5 [facility] PTH intactOrdered By: Finn cabrera on 08-31-2024 Parathyroid Hormone (Intact) 54 pg/mL [facility] PTHINon 08-31-2024 PTH 54 pg/mL Normal [facility] Comment on above: Performed By: #### L 503.6150, L506.1000, L506.0250, L501.5200, L501.2300, L500.4100, L509.1000, L500.4050, L503.0105, L503.6075, L100.0100, L503.6550, L501.9520 #### [facility] [address] [place], [address] Phosphoruson 08-31-2024 Phosphate [Mass/Vol] 2.9 mg/dL Normal 2.7-4.5 [facility] Comment on above: Performed By: #### L 503.6150, L506.1000, L506.0250, L501.5200, L501.2300, L500.4100, L509.1000, L500.4050, L503.0105, L503.6075, L100.0100, L503.6550, L501.9520 #### [facility] [address] [place], [address] Platelet countOrdered By: Tanika Ferrell on 08-31-2024 Platelets (Bld) [#/Vol] 271 10*3/uL 150-450 [facility] Potassium (Unsp spec) [Mass/ Vol]Ordered By: Finn Ferrell on 08-31-2024 Potassium [Moles/Vol] 4.1 mmol/L 3.3-5.1 [facility] Potassium measurement (mass/ volume)Ordered By: Finn Ferrell on 08-31-2024 Potassium (Unsp spec) [Mass/Vol] 4.1 mmol/L 3.3-5.1 [facility] Protein+Creatinine Ratio,Uri neon 08-31-2024 PROT:CRE RATIO 77 mg/g CRE Normal 0-200 [facility] Comment on above: Performed By: #### L 503.6150, L506.1000, L506.0250, L501.5200, L501.2300, L500.4100, L509.1000, L500.4050, L503.0105, L503.6075, L100.0100, L503.6550, L501.9520 #### [facility] [address] [place], [address] Protein (U) [Mass/Vol] 9.8 mg/dL Normal 0.0-12.0 [facility] Comment on above: Performed By: #### L 503.6150, L506.1000, L506.0250, L501.5200, L501.2300, L500.4100, L509.1000, L500.4050, L503.0105, L503.6075, L100.0100, L503.6550, L501.9520 #### [facility] [address] [place], [address] Protein/Creatinine (U) [Mass ratio]Ordered By: Finn Ferrell on 08-31-2024 Urine Protein/Creatinine Ratio 77 mg/g CRE 0-200 [facility] RBC Auto (Bld) [#/Vol]Ordere d By: Finn Ferrell on 08-31-2024 RBC (Bld) [#/Vol] 4.66 10*6/uL 4.6-6.2 [facility] Random urine creatinine renu urement (mass/volume)Ordered By: Finn Ferrell on 08-31-2024 Creatinine Unsp time (U) [Mass/Vol] 126.00 mg/dL 39.00-259. 00 [facility] Screening total cholesterol/ high density lipoprotein (HDL) cholesterol ratioOrdered By: Finn Ferrell on 08-31-2024 Cholesterol.total/Chol esterol in HDL [Mass ratio] 3.83 {ratio} [facility] Serum creatinine measurement (mass/volume)Ordered By: Finn Ferrell on 08-31-2024 Creatinine [Mass/Vol] 1.59 mg/dL High 0.70-1.20 [facility] Serum globulin measurementOr dered By: Finn Ferrell on 08-31-2024 Globulin (S) [Mass/Vol] 3.1 g/dL 2.2-4.2 [facility] Serum glucose measurement (m ass/volume)Ordered By: Finn Ferrell on 08-31-2024 Glucose [Mass/Vol] 144 mg/dL High 70-99 [facility] Serum or plasma alanine newman otransferase (ALT) measurementOrdered By: Finn Ferrell on 08-31-2024 ALT [Catalytic activity/Vol] 22 U/L <47 [facility] Serum or plasma albumin renu urement (mass/volume)Ordered By: Finn Ferrell on 08-31-2024 Albumin [Mass/Vol] 4.3 g/dL 3.4-4.8 [facility] Serum or plasma albumin/glob ulin mass ratioOrdered By: Finn Ferrell on 08-31-2024 Albumin/Globulin [Mass ratio] 1.4 {ratio} 0.9-2.4 [facility] Serum or plasma alkaline christal sphatase measurementOrdered By: Finn Ferrell on 08-31-2024 ALP [Catalytic activity/Vol] 100 U/L 40-129 [facility] Serum or plasma calcium renu urement (mass/volume)Ordered By: Finn Ferrell on 08-31-2024 Calcium [Mass/Vol] 9.7 mg/dL 7.6-11.0 [facility] Serum or plasma cholesterol in HDL measurement (mass/volume)Ordered By: Finn Ferrell on 08-31-2024 Cholesterol in HDL [Mass/Vol] 55 mg/dL >40 [facility] Comment on above: National Cholesterol Education Program (NCEP) guidelines:<40 mg/dL: Low HDL-cholesterol (major risk factor for CHD)>= 60 mg/dL: High HDL-cholesterol (negative risk factor for CHD)HDL-cholesterol is affected by a number of factors, e.g. smoking, exercise, hormones, sex and age. Serum or plasma cholesterol measurement (mass/volume)Ordered By: Finn Ferrell on 08-31-2024 Cholesterol [Mass/Vol] 212 mg/dL High <201 [facility] Comment on above: Cholesterol level, D esirable <200 mg/dLBorderline high cholesterol 200-239 mg/dLHigh cholesterol >=240 mg/dLRecommendations of the NCEP Adult Treatment Panel for the following risk-cutoff thresholds for the [place] population. Serum or plasma ferritin ellen surement (mass/volume)Ordered By: Finn Ferrell on 08-31-2024 Ferritin [Mass/Vol] 473 ng/mL High 37-417 [facility] Serum or plasma iron saturat ion measurement (mass fraction)Ordered By: Finn Ferrell on 08-31-2024 Iron saturation [Mass fraction] 27.0 % 9-55 [facility] Serum or plasma urea nitroge n measurement (mass/volume)Ordered By: Finn Ferrell on 08-31-2024 Urea nitrogen [Mass/Vol] 22 mg/dL High 4-19 [facility] Serum phosphorus measurement Ordered By: Finn Ferrell on 08-31-2024 Phosphorus Level 2.9 mg/dL 2.7-4.5 [facility] Sodium levelOrdered By: Finn Ferrell on 08-31-2024 Sodium [Moles/Vol] 142 mmol/L 133-145 [facility] Total proteinOrdered By: Benedicto Ferrell on 08-31-2024 Protein [Mass/Vol] 7.3 g/dL 5.9-8.4 [facility] Triglycerides measurementOrd ered By: Finn Ferrell on 08-31-2024 Triglyceride [Mass/Vol] 222 mg/dL High <199 [facility] Comment on above: The drugs N-Acetylcy steine and Metamizole may falsely depress this assay. Normal range: <150 mg/dLBorderline High: 150-199 mg/dLHigh: 200-499 mg/dLVery High: >500 mg/dL Urine protein measurement (m ass/volume)Ordered By: Finn Ferrell on 08-31-2024 Protein (U) [Mass/Vol] 9.8 mg/dL 0.0-12.0 [facility] Urine protein/creatinine mas s ratioOrdered By: Finn Ferrell on 08-31-2024 Protein/Creatinine (U) [Mass ratio] 77 mg/g CRE 0-200 [facility] Vitamin D, 25-hydroxyOrdered By: Finn Ferrell on 08-31-2024 Vitamin D 25-Hydroxy 51.4 ng/mL 30-100 [facility] Comment on above: Vitamin D StatusDefi ciency: <20 ng/mL (50nmol/L)Insufficiency: 20-30 ng/mL (50-75 nmol/L)Sufficiency: 30-100 ng/mL (75-250 nmol/L)Toxicity: >100 ng/mL (>250 nmol/L) Vitamin D,25 Hydroxyon 08-31 Vitamin D 25-OH 51.4 ng/mL Normal 30-100 [facility] Comment on above: Result Comment: Purnima min D Status Deficiency: <20 ng/mL (50nmol/L) Insufficiency: 20-30 ng/mL (50-75 nmol/L) Sufficiency: 30-100 ng/mL (75-250 nmol/L) Toxicity: >100 ng/mL (>250 nmol/L) Performed By: #### L 503.6150, L506.1000, L506.0250, L501.5200, L501.2300, L500.4100, L509.1000, L500.4050, L503.0105, L503.6075, L100.0100, L503.6550, L501.9520 #### [facility] [place] [address], [address] White blood cell (WBC) count Ordered By: Finn Ferrell on 08-31-2024 WBC (Bld) [#/Vol] 7.5 10*3/uL 4.4-11.0 [facility] 29on 08-30-2024 29 Addended by: DANISHA SPAIN on: 08/30/2024 11:32 AM Modules accepted: Orders [facility] 36on 08-30-2024 36 Return phone call to Patient, Imdur renewed, [...] results with him when he returns. Normal [facility] 36 Pt requesting Imdur 60 mg to [facility] pharmacy and has more questions [facility] 36on 08-29-2024 36 Phone call to merle laws. 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 He felt really good with no angina or SOB. He did increase the lopressor to 50 mg bid. He still does not have a new CPAP machine, but has been calling about. Reviewed the results of the Echocardiogram, now with reduced EF ~ 38%, and and RVE. , JET. I will review with Dr. Orte[place]. [facility] 37on 08-24-2024 37 Increase Lopressor t o 50 mg twice day Monitor Blood pressure and heart rate, call if you get dizzy , If blood pressure below 100 systolic ( top number) call me. [phone] [facility] Office Visiton 08-24-2024 Follow-up visit [id number] Shannon [place] 1955 M Date Provider Department Center 08/24/2024 [id number]-VPEPEFRANCE SPAIN SH[facility] ACH HARIKA SHMGCV [address] Ar Family History Problem Relation Age of Onset Diabetes Paternal Grandmother Diabetes Maternal Grandfather Cancer Sister Hypertension Mother Diabetes Sister Diabetes Paternal Grandfather Heart disease Paternal Grandmother Heart disease Paternal Grandfather Cancer Father Diabetes Brother Family Status - Relation Status Age at Paternal Grandmother Maternal Grandfather Sister Mother Alive Paternal Grandfather Father Brother Level of Service:73537 DC OFFICE/OUTPATIENT ESTABLISHED MOD MDM 30 MIN Reason for Visit and Comments: Follow-up [564882] Shortness of Breath [824719] Normal [facility] Progress Noteon 08-24-2024 Progress Note [facility] [address] [place] [address] Dept: [phone] Dept Visit Type: Established NAME: Shannon Olson [...] Past Medical History: Diagnosis Date Angina pectoris ([facility]) Anxiety Arrhythmia A-fib Asthma CAD (coronary artery disease) Cerebral artery occlusion with cerebral infarction ([facility]) COPD (chronic obstructive pulmonary disease) ([facility]) Depression WATTS (dyspnea on exertion) Fatigue GERD (gastroesophageal reflux disease) History of cardioversion 05/07/2016 Successful conversion of a-fib to SR History of left heart catheterization 05/07/2016 60% stenosis right posterior descending, patent stents in prox, mid & distal RCA, patent stents in med LCx. Findings unchanged from previous study. 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 NSTEMI (non-ST elevated myocardial infarction) ([facility]) 12/2012 NSTEMI (non-ST elevated myocardial infarction) ([facility]) 05/2014 Obesity Old [place] (myocardial infarction) HIPOLITO (obstructive sleep apnea) HIPOLITO on CPAP PAF (paroxysmal atrial fibrillation) ([facility]) Rheumatoid arthritis(714.0) ([facility]) ST segment elevation myocardial infarction (STEMI) of anterolateral wall, subsequent episode of care (HCC) TIA (transient ischemic attack) Social History Tobacco Use Smoking status: Never Smokeless tobacco: Never Substance Use Topics Alcohol use: Not Currently Past Surgical History: Procedure Laterality Date CAPSULOTOMY, HAND 05/07/2016 CARDIAC CATHETERIZATION N/A 03/01/2023 Performed by Zoie Gonzales MD at [facility] Cardiac Cath/EP Lab CARDIAC PROCEDURE Left [...] CORONARY ANGIOPL (more content not included)... [facility] US Heart TransthoracicOrdere d By: Smita Montano on 08-24-2024 Ao Root Index 1.23 cm/m2 [facility] Phone: Aortic Arch 4 cm [facility] Phone: Aortic Root 3.2 cm [facility] Phone: Aortic Sinus Valsalva 3.2 cm [facility] [employer] Work Phone: Aortic Sinus Valsalva Index 1.23 cm/m2 [facility] Phone: Aortic valve Orifice area by US 3.8 cm2 [facility] [employer] Phone: Ascending Aorta 4.7 cm [facility] [employer] Phone: Ascending Aorta Index 1.81 cm/m2 [facility] [employer] Phone: AV Area by Peak Velocity 2.9 cm2 [facility] Phone: AV Peak Gradient 8 mmHg [facility] [employer] Phone: AV Peak Velocity 1.5 m/s [facility] Work Phone: AV Velocity Ratio 0.73 [facility] [employer] Work Phone: GRACE/BSA Peak Velocity 1.1 cm2/m2 [facility] [employer] Work Phone: E/E' Lateral 8 [facility] [employer] Work Phone: E/E' Ratio (Averaged) 8.57 [facility] [employer] Work Phone: E/E' Septal 9.14 [facility] [employer] Work Phone: Est. RA Pressure 8 mmHg [facility] [employer] Work Phone: Fractional Shortening 2D 18 % 28 - 44 % [facility] Phone: Interpretation and review of laboratory results Abnormal [facility] Phone: IVC Diameter 2.4 cm [facility] Phone: IVSd 1.5 cm Abnormal 0.6 - 1.0 cm [facility] Phone: LA Diameter 5.3 cm [facility] [employer] Phone: LA Size Index 2.04 cm/m2 [facility] Phone: LA Volume 2C 75 mL Abnormal 18 - 58 mL [facility] Phone: LA Volume 4C 84 mL Abnormal 18 - 58 mL [facility] Phone: LA Volume A/L 87 mL [facility] Phone: LA Volume BP 82 mL Abnormal 18 - 58 mL [facility] Work Phone: LA Volume Index 2C 29 mL/m2 16 - 34 mL/m2 [facility] Phone: LA Volume Index 4C 32 mL/m2 16 - 34 mL/m2 [facility] Phone: LA Volume Index A/L 33 mL/m2 16 - 34 mL/m2 [facility] Phone: LA Volume Index BP 32 ml/m2 16 - 34 ml/m2 [facility] Work Phone: LA/AO Root Ratio 1.66 [facility] Work Phone: Left ventricular Ejection fraction by US.2D+Calculated by biplane method of disks 38 % Abnormal 55 - 100 % [facility] [employer] Work Phone: LV E' Lateral Velocity 8 cm/s [facility] Work Phone: LV E' Septal Velocity 7 cm/s [facility] [employer] Work Phone: LV EDV A2C 225 mL [facility] [employer] Work Phone: LV EDV A4C 263 mL [facility] [employer] Work Phone: LV EDV BP 252 mL Abnormal 67 - 155 mL [facility] [employer] Work Phone: LV EDV Index A2C 87 mL/m2 [facility] [employer] Work Phone: LV EDV Index A4C 101 mL/m2 [facility] [employer] Work Phone: LV EDV Index BP 97 mL/m2 [facility] [employer] Work Phone: LV Ejection Fraction A2C 35 % [facility] [employer] Work Phone: LV Ejection Fraction A4C 36 % [facility] [employer] Work Phone: LV ESV A2C 147 mL [facility] [employer] Work Phone: LV ESV A4C 167 mL [facility] [employer] Work Phone: LV ESV BP 156 mL Abnormal 22 - 58 mL [facility] [employer] Work Phone: LV ESV Index A2C 57 mL/m2 [facility] [employer] Work Phone: LV ESV Index A4C 64 mL/m2 [facility] [employer] Work Phone: LV ESV Index BP 60 mL/m2 [facility] [employer] Work Phone: LV Mass 2D 452.4 g Abnormal 88 - 224 g [facility] [employer] Work Phone: LV Mass 2D Index 174 g/m2 Abnormal 49 - 115 g/m2 [facility] [employer] Work Phone: LV RWT Ratio 0.39 [facility] [employer] Work Phone: LVIDd 6.6 cm Abnormal 4.2 - 5.9 cm [facility] Work Phone: LVIDd Index 2.54 cm/m2 [facility] Work Phone: LVIDs 5.4 cm [facility] Work Phone: LVIDs Index 2.08 cm/m2 [facility] Work Phone: LVOT Cardiac Output 4.7 liter/mi nu te [facility] Work Phone: LVOT Diameter 2.2 cm [facility] Work Phone: LVOT Mean Gradient 3 mmHg [facility] Work Phone: LVOT Peak Gradient 5 mmHg [facility] [employer] Work Phone: LVOT Peak Velocity 1.1 m/s [facility] [employer] Work Phone: LVOT Stroke Volume Index 33.5 mL/m2 [facility] [employer] Work Phone: LVOT SV 87 ml [facility] [employer] Work Phone: LVOT VTI 22.9 cm [facility] [facility] Work Phone: LVPWd 1.3 cm Abnormal 0.6 - 1.0 cm [facility] Work Phone: MV A Velocity 0.76 m/s [facility] Work Phone: MV E Velocity 0.64 m/s [facility] Work Phone: MV E Wave Deceleration Time 291.3 ms [facility] Work Phone: MV E/A 0.84 [facility] Work Phone: Pulmonary Artery EDP 4 mmHg [facility] Work Phone: RA Area 4C 50.7 mL [facility] Work Phone: RV Basal Dimension 5.1 cm [facility] Work Phone: RV Free Wall Peak S' 18 cm/s [facility] Work Phone: RV Longitudinal Dimension 7.1 cm [facility] Work Phone: RV Mid Dimension 3.6 cm [employer] Work Phone: Sinotubular Junction 2.6 cm [employer] Work Phone: TAPSE 2.9 cm 1.7 cm [facility] Work Phone: [facility] Work Phone: US Heart Transthoracicon Left Ventricle: Left ventricle is [...] and 500 mg in the evening. Normal [facility] Office Visiton 07-20-2024 Follow-up visit [id number] Shannon Olson 1955 M Date Provider Department Center 07/20/2024 [id number] [facility]PAIN [facility] HAR[facility]A SHM[facility] 95 Ar Family History Problem Relation Age of Onset Diabetes Paternal Grandmother Diabetes Maternal Grandfather Cancer Sister Hypertension Mother Diabetes Sister Diabetes Paternal Grandfather Heart disease Paternal Grandmother Heart disease Paternal Grandfather Cancer Father Diabetes Brother Family Status - Relation Status Age at Paternal Grandmother Maternal Grandfather Sister Mother Alive Paternal Grandfather Father Brother Level of Service:34308 DC OFFICE/OUTPATIENT ESTABLISHED MOD MDM 30 MIN Reason for Visit and Comments: Coronary Artery Disease [187] Normal [facility] Progress Noteon 07-20-[address] [facility] [address] [facility] [address] Dept: [phone] Dept Visit Type: Established NAME: Shannon Olson [...] Past Medical History: Diagnosis Date Angina pectoris ([facility]) Anxiety Arrhythmia A-fib Asthma CAD (coronary artery disease) Cerebral artery occlusion with cerebral infarction ([facility]) COPD (chronic obstructive pulmonary disease) ([facility]) Depression WATTS (dyspnea on exertion) Fatigue GERD (gastroesophageal reflux disease) History of cardioversion 05/07/2016 Successful conversion of a-fib to SR History of left heart catheterization 05/07/2016 60% stenosis right posterior descending, patent stents in prox, mid & distal RCA, patent stents in med LCx. Findings unchanged from previous study. 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 FPC current use of antiarrhythmic drug FPC current use of anticoagulant NSTEMI (non-ST elevated myocardial infarction) ([facility]) ([facility]) 12/2012 NSTEMI (non-ST elevated myocardial infarction) ([facility]) ([facility]) 05/2014 Obesity Old SC (myocardial infarction) HIPOLITO (obstructive sleep apnea) HIPOLITO on CPAP PAF (paroxysmal atrial fibrillation) ([facility]) Rheumatoid arthritis(714.0) ([facility]) ST segment elevation myocardial infarction (STEMI) of anterolateral wall, subsequent episode of care ([facility]) ([facility]) TIA (transient ischemic attack) Social History Tobacco Use Smoking status: Never Smokeless tobacco: Never Substance Use Topics Alcohol use: Not Currently Past Surgical History: Procedure Laterality Date CAPSULOTOMY, HAND 05/07/2016 CARDIAC CATHETERIZATION N/A 03/01/2023 Performed by Zoie Gonzales MD at [facility] Cardiac Cath/EP Lab CARDIAC PROCEDURE Left [...] CORONARY ANGIOPLASTY WITH STENT PLACEMENT Left 12/01/2021 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 [facility] 3607-13-2024 36 Patient cancelled hi s appt today, due to bad weather. He is feeling a little better. Has used SL NTG a few times. He is R/S for next week. [place] [address] Name of Caller: Shannon Contact Reason for Appointment: Cancel and R/S 07/13/2024 at 130pm due to weather Office Name: [facility] [address] Medication Refills need, if any: no Medication Name: no [address] 07-06-2024 36 Phone call to merle laws , He is having increased angina, Agreeable to OV today at 2:30 pm. [place] [address] Patient called into office stating he has [...] to come in for appt if appropriate. 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 Normal [facility] 36 Patient c/o CP walki ng around the house today. nitroglycerin has eased some of the pain, some SOB when he walks. Requesting an appt today. Normal [facility] 37on 07-06-2024 37 Increase Norvasc ( Amlodipine ) to 5 mg twice a day Start Taking Isosorbide Mononitrate 2 tablets together in the am Start Ranexa ( Ranolazine ) 500 mg twice day 4. Please check if you are taking Carafate 4 times a day ( From GI doctor) 5. Use SL NTG prior to going outside or doing chores. 7 Normal [facility] Office Visiton 07-06-2024 Follow-up visit [id number] Shannon Olson 1955 M Date Provider Department Center 07/06/2024 [id number] [facility]IN [facility] 95 Ar Family History Problem Relation Age of Onset Diabetes Paternal Grandmother Diabetes Maternal Grandfather Cancer Sister Hypertension Mother Diabetes Sister Diabetes Paternal Grandfather Heart disease Paternal Grandmother Heart disease Paternal Grandfather Cancer Father Diabetes Brother Family Status - Relation Status Age at Paternal Grandmother Maternal Grandfather Sister Mother Alive Paternal Grandfather Father Brother Level of Service:18122 DC OFFICE/OUTPATIENT ESTABLISHED MOD MDM 30 MIN Reason for Visit and Comments: Follow-up [613560] Chest Pain [626142] Dizziness [817558] Normal [facility] Progress Noteon 07-06-2024 Progress Note [facility] [address] [facility] [address] Dept: [phone] Dept Visit Type: Established NAME: Shannon Olson [...] Past Medical History: Diagnosis Date Angina pectoris ([facility]) Anxiety Arrhythmia A-fib Asthma CAD (coronary artery disease) Cerebral artery occlusion with cerebral infarction ([facility]) COPD (chronic obstructive pulmonary disease) ([facility]) Depression WATTS (dyspnea on exertion) Fatigue GERD (gastroesophageal reflux disease) History of cardioversion 05/07/2016 Successful conversion of a-fib to SR History of left heart catheterization 05/07/2016 60% stenosis right posterior descending, patent stents in prox, mid & distal RCA, patent stents in med LCx. Findings unchanged from previous study. 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 NSTEMI (non-ST elevated myocardial infarction) ([facility]) ([facility]) 12/2012 NSTEMI (non-ST elevated myocardial infarction) ([facility]) ([facility]) 05/2014 Obesity Old SC (myocardial infarction) HIPOLITO (obstructive sleep apnea) HIPOLITO on CPAP PAF (paroxysmal atrial fibrillation) ([facility]) Rheumatoid arthritis(714.0) ([facility]) ST segment elevation myocardial infarction (STEMI) of anterolateral wall, subsequent episode of care ([facility]) ([facility]) TIA (transient ischemic attack) Social History Tobacco Use Smoking status: Never Smokeless tobacco: Never Substance Use Topics Alcohol use: Not Currently Past Surgical History: Procedure Laterality Date CAPSULOTOMY, HAND 05/07/2016 CARDIAC CATHETERIZATION N/A 03/01/2023 Performed by Zoie Gonzales MD at [facility] Cardiac Cath/EP Lab CARDIAC PROCEDURE Left [...] PLACEMENT Le (more content not included)... Normal [facility] 12 Lead EKGon 06-20-2024 12 Lead EKG [facility] Cardiovascular Services [address] [place] [address] 12 Lead EKG 06/20/24 0759 MR#: [id number] Acct: [id number] Name: SHANNON OLSON Rep #: [id number] : 1955 68 From: Juan Sams MD Attending Dr: JG DENT Status: REG CLI Ordering Dr: JG DENT Date: 06/20/24 Location: PSN Sex: M C Admitted: Test Reason : [...] Abnormal ECG Confirmed by LATRELL ALVARADO, ROCÍO ([id number]), editor sound GIA LING ([id number]) on 06/21/2024 6:31:28 AM Referred By: JG DENT Confirmed By: ROCÍO SAMS MD 06/21/24 0631 Date Juan Sams MD CC: Dr. Finn Ferrell MD; JG DENT Signed Normal [facility] Albumin to globulin ratioon 06-20-2024 Albumin/Globulin [Mass ratio] 0.9 {ratio} 0.9-2.4 [facility] Bilirubin, totalon Bilirubin [Mass/Vol] 1.10 mg/dL High 0.20-1.00 [facility] Comment on above: For patients on eltr ombopag therapy, use of Dimension [place] TBIL is not recommended. Blood urea nitrogen (BUN)/cr eatinine ratioon 06-20-2024 Urea nitrogen/Creatinine [Mass ratio] 16.4 mg/mg 10-20 [facility] CBC-Complete Blood Cnt No Di ffon 06-20-2024 Erythrocyte distribution width (RBC) [Ratio] 14.7 % High 11.6-14.6 [facility] Comment on above: Performed By: #### L 503.6150, L506.1000, L506.0250, L501.5200, L501.2300, L500.4100, L509.1000, L500.4050, L503.0105, L503.6075, L100.0100, L503.6550, L501.9520 #### [facility] [address] [place], [place], [id number] (390) Hematocrit (Bld) [Volume fraction] 43.0 % Normal 40-54 [facility] Comment on above: Performed By: #### L 503.6150, L506.1000, L506.0250, L501.5200, L501.2300, L500.4100, L509.1000, L500.4050, L503.0105, L503.6075, L100.0100, L503.6550, L501.9520 #### [facility] [address] [place], [place], [id number] (150) Hemoglobin (Bld) [Mass/Vol] 13.6 g/dL Normal 13.0-16.5 [facility] Comment on above: Performed By: #### L 503.6150, L506.1000, L506.0250, L501.5200, L501.2300, L500.4100, L509.1000, L500.4050, L503.0105, L503.6075, L100.0100, L503.6550, L501.9520 #### [facility] [address] [place], [address] MCH (RBC) [Entitic mass] 29.1 pg Normal 27.0-32.0 [facility] Comment on above: Performed By: #### L 503.6150, L506.1000, L506.0250, L501.5200, L501.2300, L500.4100, L509.1000, L500.4050, L503.0105, L503.6075, L100.0100, L503.6550, L501.9520 #### [facility] [address] [place], [address] MCHC (RBC) [Mass/Vol] 31.6 g/dL Low 32-36 [facility] Comment on above: Performed By: #### L 503.6150, L506.1000, L506.0250, L501.5200, L501.2300, L500.4100, L509.1000, L500.4050, L503.0105, L503.6075, L100.0100, L503.6550, L501.9520 #### [facility] [address] [place], [address] MCV (RBC) [Entitic vol] 91.9 fL Normal 80-94 [facility] Comment on above: Performed By: #### L 503.6150, L506.1000, L506.0250, L501.5200, L501.2300, L500.4100, L509.1000, L500.4050, L503.0105, L503.6075, L100.0100, L503.6550, L501.9520 #### [facility] [address] [place], [address] Platelet mean volume (Bld) [Entitic vol] 9.2 fL Normal 6.2-12.0 [facility] Comment on above: Performed By: #### L 503.6150, L506.1000, L506.0250, L501.5200, L501.2300, L500.4100, L509.1000, L500.4050, L503.0105, L503.6075, L100.0100, L503.6550, L501.9520 #### [facility] [address] [place], [place], [id number] (130) Platelets (Bld) [#/Vol] 244 10*3/uL Normal 150-450 [facility] Comment on above: Performed By: #### L 503.6150, L506.1000, L506.0250, L501.5200, L501.2300, L500.4100, L509.1000, L500.4050, L503.0105, L503.6075, L100.0100, L503.6550, L501.9520 #### [facility] [address] [facility] [address] [place], [place], [id number] (562) RBC (Bld) [#/Vol] 4.68 10*6/uL Normal 4.6-6.2 [facility] Comment on above: Performed By: #### L 503.6150, L506.1000, L506.0250, L501.5200, L501.2300, L500.4100, L509.1000, L500.4050, L503.0105, L503.6075, L100.0100, L503.6550, L501.9520 #### [facility] [address] [place], [place], [id number] (530) RDW SD 49.7 fl High 35.1-43.9 [facility] Comment on above: Performed By: #### L 503.6150, L506.1000, L506.0250, L501.5200, L501.2300, L500.4100, L509.1000, L500.4050, L503.0105, L503.6075, L100.0100, L503.6550, L501.9520 #### [facility] [address] [place], [place], [address] WBC (Bld) [#/Vol] 7.2 10*3/uL Normal 4.4-11.0 [facility] Comment on above: Performed By: #### L 503.6150, L506.1000, L506.0250, L501.5200, L501.2300, L500.4100, L509.1000, L500.4050, L503.0105, L503.6075, L100.0100, L503.6550, L501.9520 #### [facility] [address] [place], [place], [id number] Carbon dioxide measurementon 06-20-2024 CO2 [Moles/Vol] 26.0 mmol/L 21.0-32.0 [facility] Chest 1 Viewon 06-20-2024 Chest 1 View [facility] Imaging Services [address] [place] [address] Chest 1 View MR#: [id number] Acct: [id number] Name: SHANNON OLSON Rep #: [id number] : 1955 M 68 From: Dom Echols PCP: Dr. Finn Ferrell MD Status: REG CLI Study: Chest 1 View Date of Exam: 06/20/24 Exam# [id number] Ordering Dr: JG DENT PROCEDURE: CHEST 1 [...] aorta. No evidence of cardiomegaly. Reading Location: [address] CC: Dr. Finn Ferrell MD; JG DENT Camp Advisor: Signed Normal [facility] Chloride measurementon 06-20 Chloride [Moles/Vol] 107 mmol/L 98-107 [facility] Comprehensive Metabolic Prof ilon 06-20-2024 Albumin [Mass/Vol] 3.6 g/dL Normal 3.2-5.0 [facility] Comment on above: Performed By: #### L 503.6150, L506.1000, L506.0250, L501.5200, L501.2300, L500.4100, L509.1000, L500.4050, L503.0105, L503.6075, L100.0100, L503.6550, L501.9520 #### [facility] [address] [place], [address] Albumin/Globulin [Mass ratio] 0.9 {ratio} Normal 0.9-2.4 [facility] Comment on above: Performed By: #### L 503.6150, L506.1000, L506.0250, L501.5200, L501.2300, L500.4100, L509.1000, L500.4050, L503.0105, L503.6075, L100.0100, L503.6550, L501.9520 #### [facility] [address] [place], [place], [id number] (283) ALK P 105 U/L Normal 45-117 [facility] Comment on above: Performed By: #### L 503.6150, L506.1000, L506.0250, L501.5200, L501.2300, L500.4100, L509.1000, L500.4050, L503.0105, L503.6075, L100.0100, L503.6550, L501.9520 #### [facility] [address] [place], [address] ALT [Catalytic activity/Vol] 37 U/L Normal 16-61 [facility] Comment on above: Performed By: #### L 503.6150, L506.1000, L506.0250, L501.5200, L501.2300, L500.4100, L509.1000, L500.4050, L503.0105, L503.6075, L100.0100, L503.6550, L501.9520 #### [facility] [address] [place], [place], [id number] (327) AST [Catalytic activity/Vol] 18 U/L Normal 15-37 [facility] Comment on above: Performed By: #### L 503.6150, L506.1000, L506.0250, L501.5200, L501.2300, L500.4100, L509.1000, L500.4050, L503.0105, L503.6075, L100.0100, L503.6550, L501.9520 #### [facility] [address] [place], [place], [id number] (814) Bilirubin [Mass/Vol] 1.10 mg/dL High 0.20-1.00 [facility] Comment on above: Result Comment: For patients on eltrombopag therapy, use of Dimension [place] TBIL is not recommended. Performed By: #### L 503.6150, L506.1000, L506.0250, L501.5200, L501.2300, L500.4100, L509.1000, L500.4050, L503.0105, L503.6075, L100.0100, L503.6550, L501.9520 #### [facility] [address] [place], [place], [id number] (177) BUN/CRE 16.4 RATIO Normal 10-20 [facility] Comment on above: Performed By: #### L 503.6150, L506.1000, L506.0250, L501.5200, L501.2300, L500.4100, L509.1000, L500.4050, L503.0105, L503.6075, L100.0100, L503.6550, L501.9520 #### [facility] [address] [place], [address] CA,Total 9.9 mg/dL Normal 8.5-10.1 [facility] Comment on above: Performed By: #### L 503.6150, L506.1000, L506.0250, L501.5200, L501.2300, L500.4100, L509.1000, L500.4050, L503.0105, L503.6075, L100.0100, L503.6550, L501.9520 #### [facility] [address] [place], [address] Chloride [Moles/Vol] 107 mmol/L Normal 98-107 [facility] Comment on above: Performed By: #### L 503.6150, L506.1000, L506.0250, L501.5200, L501.2300, L500.4100, L509.1000, L500.4050, L503.0105, L503.6075, L100.0100, L503.6550, L501.9520 #### [facility] [address] [place], [place], [id number] (386) CO2 [Moles/Vol] 26.0 mmol/L Normal 21.0-32.0 [facility] Comment on above: Performed By: #### L 503.6150, L506.1000, L506.0250, L501.5200, L501.2300, L500.4100, L509.1000, L500.4050, L503.0105, L503.6075, L100.0100, L503.6550, L501.9520 #### [facility] [address] [place], [address] Creatinine [Mass/Vol] 1.28 mg/dL Normal 0.70-1.30 [facility] Comment on above: Result Comment: The validity of the calculated GFR GFRAA in patients over 70 years has not been determined. Clinical correlation is essential. Performed By: #### L 503.6150, L506.1000, L506.0250, L501.5200, L501.2300, L500.4100, L509.1000, L500.4050, L503.0105, L503.6075, L100.0100, L503.6550, L501.9520 #### [facility] [address] [place], [place], [id number] EST GFR - AA 72 mL/min Normal >60 [facility] Comment on above: Result Comment: Afri can Latvian GFR Calc Performed By: #### L 503.6150, L506.1000, L506.0250, L501.5200, L501.2300, L500.4100, L509.1000, L500.4050, L503.0105, L503.6075, L100.0100, L503.6550, L501.9520 #### [facility] [address] [place], [place], [id number] GAP 7 Normal 5-15 [facility] Comment on above: Performed By: #### L 503.6150, L506.1000, L506.0250, L501.5200, L501.2300, L500.4100, L509.1000, L500.4050, L503.0105, L503.6075, L100.0100, L503.6550, L501.9520 #### [facility] [address] [place], [address] GFR/1.73 sq M.predicted among non-blacks MDRD (S/P/Bld) [Vol rate/Area] 59 mL/min/{1.73_m2} Low >60 [facility] Comment on above: Result Comment: Non- GFR Calc Performed By: #### L 503.6150, L506.1000, L506.0250, L501.5200, L501.2300, L500.4100, L509.1000, L500.4050, L503.0105, L503.6075, L100.0100, L503.6550, L501.9520 #### [facility] [address] [place], [address] Globulin (S) [Mass/Vol] 4.0 g/dL Normal 2.2-4.2 [facility] Comment on above: Performed By: #### L 503.6150, L506.1000, L506.0250, L501.5200, L501.2300, L500.4100, L509.1000, L500.4050, L503.0105, L503.6075, L100.0100, L503.6550, L501.9520 #### [facility] [address] [place], [address] Glucose [Mass/Vol] 136 mg/dL High 74-106 [facility] Comment on above: Result Comment: Fast ing Glucose result greater than or equal to 126 mg/dL suggests DIABETES MELLITUS per A.D.A. criteria. Performed By: #### L 503.6150, L506.1000, L506.0250, L501.5200, L501.2300, L500.4100, L509.1000, L500.4050, L503.0105, L503.6075, L100.0100, L503.6550, L501.9520 #### [facility] [address] [place], [address] Potassium [Moles/Vol] 3.9 mmol/L Normal 3.5-5.1 [facility] Comment on above: Performed By: #### L 503.6150, L506.1000, L506.0250, L501.5200, L501.2300, L500.4100, L509.1000, L500.4050, L503.0105, L503.6075, L100.0100, L503.6550, L501.9520 #### [facility] [address] [place], [address] Sodium [Moles/Vol] 140 mmol/L Normal 136-145 [facility] Comment on above: Performed By: #### L 503.6150, L506.1000, L506.0250, L501.5200, L501.2300, L500.4100, L509.1000, L500.4050, L503.0105, L503.6075, L100.0100, L503.6550, L501.9520 #### [facility] [address] [place], [address] T PROT 7.6 g/dL Normal 6.4-8.2 [facility] Comment on above: Performed By: #### L 503.6150, L506.1000, L506.0250, L501.5200, L501.2300, L500.4100, L509.1000, L500.4050, L503.0105, L503.6075, L100.0100, L503.6550, L501.9520 #### [facility] [address] [place], [address] Urea nitrogen [Mass/Vol] 21 mg/dL High 7-18 [facility] Comment on above: Performed By: #### L 503.6150, L506.1000, L506.0250, L501.5200, L501.2300, L500.4100, L509.1000, L500.4050, L503.0105, L503.6075, L100.0100, L503.6550, L501.9520 #### [facility] [address] [place], [address] Erythrocyte distribution wid th (RBC) [Ratio]on 06-20-2024 Erythrocyte distribution width (RBC) [Entitic vol] 49.7 fL High 35.1-43.9 [facility] Erythrocyte distribution wid th ratioon 06-20-2024 Erythrocyte distribution width (RBC) [Ratio] 14.7 % High 11.6-14.6 [facility] Estimated glomerular filtrat ion rate (GFR) Americanon 06-20-2024 Estimated GFR (MDRD) Amer 72 mL/min >60 [facility] Comment on above: GFR Calc Glomerular filtration rate ( GFR) estimationon 06-20-2024 Estimated GFR (MDRD) Non-Af Amer 59 mL/min Low >60 [facility] Comment on above: Non- GFR Calc Glucose measurementon 2024 Glucose [Mass/Vol] 136 mg/dL High 74-106 [facility] Comment on above: Fasting Glucose resu lt greater than or equal to 126 mg/dL suggests DIABETES MELLITUS per A.D.A. criteria. Hematocrit Auto (Bld) [Volum e fraction]on 06-20-2024 Hematocrit (Bld) [Volume fraction] 43.0 % 40-54 [facility] Hemoglobin measurementon Hemoglobin (Bld) [Mass/Vol] 13.6 g/dL 13.0-16.5 [facility] Laboratory - Chemistry and C hemistry - challengeon 06-20-2024 AST [Catalytic activity/Vol] 18 U/L 15-37 [facility] MCV (mean corpuscular volume ) determinationon 06-20-2024 MCV (RBC) [Entitic vol] 91.9 fL 80-94 [facility] Mean corpuscular hemoglobin (MCH) determinationon 06-20-2024 MCH (RBC) [Entitic mass] 29.1 pg 27.0-32.0 [facility] Mean corpuscular hemoglobin concentration (MCHC) determinationon 06-20-2024 MCHC (RBC) [Mass/Vol] 31.6 g/dL Low 32-36 [facility] Mean platelet volume determi nationon 06-20-2024 Platelet mean volume (Bld) [Entitic vol] 9.2 fL 6.2-12.0 [facility] Platelet counton 06-20-2024 Platelets (Bld) [#/Vol] 244 10*3/uL 150-450 [facility] Potassium measurementon 05-25 Potassium [Moles/Vol] 3.9 mmol/L 3.5-5.1 [facility] RBC Auto (Bld) [#/Vol]on RBC (Bld) [#/Vol] 4.68 10*6/uL 4.6-6.2 [facility] Serum anion gap measuremento n 06-20-2024 Anion gap [Moles/Vol] 7 mmol/L 5-15 [facility] Serum globulin measurementon 06-20-2024 Globulin (S) [Mass/Vol] 4.0 g/dL 2.2-4.2 [facility] Serum or plasma alanine newman otransferase (ALT) measurementon 06-20-2024 ALT [Catalytic activity/Vol] 37 U/L 16-61 [facility] Serum or plasma albumin renu urement (mass/volume)on 06-20-2024 Albumin [Mass/Vol] 3.6 g/dL 3.2-5.0 [facility] Serum or plasma alkaline christal sphatase measurementon 06-20-2024 ALP [Catalytic activity/Vol] 105 U/L 45-117 [facility] Serum or plasma calcium renu urement (mass/volume)on 06-20-2024 Calcium [Mass/Vol] 9.9 mg/dL 8.5-10.1 [facility] Serum or plasma creatinine m easurement (mass/volume)on 06-20-2024 Creatinine [Mass/Vol] 1.28 mg/dL 0.70-1.30 [facility] Comment on above: The validity of the calculated GFR & GFRAA in patients over 70 years has not been determined. Clinical correlation is essential. Serum or plasma urea nitroge n measurement (mass/volume)on 06-20-2024 Urea nitrogen [Mass/Vol] 21 mg/dL High 7-18 [facility] Sodium levelon 06-20-2024 Sodium [Moles/Vol] 140 mmol/L 136-145 [facility] TSH Qnon 06-20-2024 Thyroid Stimulating Hormone (TSH) 1.220 uIU/mL 0.358-3.74 0 [facility] Thyroid Stim Hormone (TSH)on 06-20-2024 TSH 1.220 uIU/mL Normal 0.358-3.74 0 [facility] Comment on above: Performed By: #### L 503.6910, L506.1000, L506.0250, L501.5200, L501.2300, L500.4100, L509.1000, L500.4050, L503.0105, L503.6075, L100.0100, L503.6550, L501.9520 #### [facility] [address] [place], [address] Total proteinon 06-20-2024 Protein [Mass/Vol] 7.6 g/dL 6.4-8.2 [facility] White blood cell (WBC) count on 06-20-2024 WBC (Bld) [#/Vol] 7.2 10*3/uL 4.4-11.0 [facility] 36on 06-06-2024 36 For amio refill, pat ient needs: CMP, TSH, CXR, and EKG Recommend CBC give OAC and antiplatelet. [place] [address] Will route all cardi ac medications to [facility] pharmacy. [facility] Dr. Ortega 02/01/24. Labs completed by PCP office 12/01/23. 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 He used to get medications through our pharmacy and he is wondering if he can get all his meds changed to get through us. [facility] 36on 05-22-2024 36 I spoke w/ pt, confi rmed RX request. [facility] 36 Patient requesting r efill Imdur (isosorbide) 60mg metoprolol tartrate (Lopressor) 25 MG tablet [facility] pharm verified [place] [address]on 05-03-[address] Ortega 02/01/24. Pended rx, Angela. Dora SANTOS to sign. [facility] 36 Requesting refill amLODIPine (Norvasc) 5 MG tablet [facility] verified [place] [address]on 12-06-2024 36 Received fax from [facility] for refill of rosuvastatin [address] [facility] [address] Ortega 02/01/24. Lipid panel completed 02/19/23. Pended Rika gimenez APRN to sign. Normal [facility] CBC W/Diff, Automatedon 12-0 Absolute Lymph 1.33 X10 3/uL Normal 0.83-4.51 [facility] Comment on above: Order Comment: Order Date: 04/28/24 Order Info: 0184- - CBCD Performed By: #### L 503.6150, L506.1000, L506.0250, L501.5200, L501.2300, L500.4100, L509.1000, L500.4050, L503.0105, L503.6075, L100.0100, L503.6550, L501.9520 #### [facility] [address] [place], [place], [id number] Absolute Neut 11.5 X10 3/uL High 2.0-7.7 [facility] Comment on above: Order Comment: Order Date: 04/28/24 Order Info: 0184- - CBCD Performed By: #### L 503.6150, L506.1000, L506.0250, L501.5200, L501.2300, L500.4100, L509.1000, L500.4050, L503.0105, L503.6075, L100.0100, L503.6550, L501.9520 #### [facility] [address] [place], [place], [id number] Basophils/100 WBC (Bld) 0.4 % Normal 0-1 [facility] Comment on above: Order Comment: Order Date: 04/28/24 Order Info: 0184-1 - CBCD Performed By: #### L 503.6150, L506.1000, L506.0250, L501.5200, L501.2300, L500.4100, L509.1000, L500.4050, L503.0105, L503.6075, L100.0100, L503.6550, L501.9520 #### [facility] [address] [place], [place], [phone] (290) Eosinophils/100 WBC (Bld) 0.0 % Normal 0-5 [facility] Comment on above: Order Comment: Order Date: 04/28/24 Order Info: 0184- - CBCD Performed By: #### L 503.6150, L506.1000, L506.0250, L501.5200, L501.2300, L500.4100, L509.1000, L500.4050, L503.0105, L503.6075, L100.0100, L503.6550, L501.9520 #### [facility] [address] [facility] [place], [place], [phone] Erythrocyte distribution width (RBC) [Ratio] 14.9 % High 11.6-14.6 [facility] Comment on above: Order Comment: Order Date: 04/28/24 Order Info: 018- - CBCD Performed By: #### L 503.6150, L506.1000, L506.0250, L501.5200, L501.2300, L500.4100, L509.1000, L500.4050, L503.0105, L503.6075, L100.0100, L503.6550, L501.9520 #### [facility] [address] [place], [place], [phone] Hematocrit (Bld) [Volume fraction] 41.7 % Normal 40-54 [facility] Comment on above: Order Comment: Order Date: 04/28/24 Order Info: 018-1 - CBCD Performed By: #### L 503.6150, L506.1000, L506.0250, L501.5200, L501.2300, L500.4100, L509.1000, L500.4050, L503.0105, L503.6075, L100.0100, L503.6550, L501.9520 #### [facility] [address] [place], [place], [id number] Hemoglobin (Bld) [Mass/Vol] 13.4 g/dL Normal 13.0-16.5 [facility] Comment on above: Order Comment: Order Date: 04/28/24 Order Info: 0184-1 - CBCD Performed By: #### L 503.6150, L506.1000, L506.0250, L501.5200, L501.2300, L500.4100, L509.1000, L500.4050, L503.0105, L503.6075, L100.0100, L503.6550, L501.9520 #### [facility] [address] [facility] [place], [place], [id number] IG% 1.700 High 0.0-0.9 [facility] Comment on above: Order Comment: Order Date: 04/28/24 Order Info: 018- - CBCD Result Comment: IG% - Immature Granulocytes (promyelocytes, myelocytes and metamyelocytes) > 1% indicates that a LEFT SHIFT is Present. Performed By: #### L 503.6150, L506.1000, L506.0250, L501.5200, L501.2300, L500.4100, L509.1000, L500.4050, L503.0105, L503.6075, L100.0100, L503.6550, L501.9520 #### [facility] [address] [place], [place], [phone] Lymphocytes/100 WBC (Bld) 9.8 % Low 19-41 [facility] Comment on above: Order Comment: Order Date: 04/28/24 Order Info: 0184-1 - CBCD Performed By: #### L 503.6150, L506.1000, L506.0250, L501.5200, L501.2300, L500.4100, L509.1000, L500.4050, L503.0105, L503.6075, L100.0100, L503.6550, L501.9520 #### [facility] [address] [place], [address] MCH (RBC) [Entitic mass] 29.1 pg Normal 27.0-32.0 [facility] Comment on above: Order Comment: Order Date: 04/28/24 Order Info: 018- - CBCD Performed By: #### L 503.6150, L506.1000, L506.0250, L501.5200, L501.2300, L500.4100, L509.1000, L500.4050, L503.0105, L503.6075, L100.0100, L503.6550, L501.9520 #### [facility] [address] [place], [address] MCHC (RBC) [Mass/Vol] 32.1 g/dL Normal 32-36 [facility] Comment on above: Order Comment: Order Date: 04/28/24 Order Info: 018- - CBCD Performed By: #### L 503.6150, L506.1000, L506.0250, L501.5200, L501.2300, L500.4100, L509.1000, L500.4050, L503.0105, L503.6075, L100.0100, L503.6550, L501.9520 #### [facility] [address] [place], [address] MCV (RBC) [Entitic vol] 90.5 fL Normal 80-94 [facility] Comment on above: Order Comment: Order Date: 04/28/24 Order Info: 018- - CBCD Performed By: #### L 503.6150, L506.1000, L506.0250, L501.5200, L501.2300, L500.4100, L509.1000, L500.4050, L503.0105, L503.6075, L100.0100, L503.6550, L501.9520 #### [facility] [address] [place], [address] Monocytes/100 WBC (Bld) 3.9 % Normal 0-10 [facility] Comment on above: Order Comment: Order Date: 04/28/24 Order Info: 0184-1 - CBCD Performed By: #### L 503.6150, L506.1000, L506.0250, L501.5200, L501.2300, L500.4100, L509.1000, L500.4050, L503.0105, L503.6075, L100.0100, L503.6550, L501.9520 #### [facility] [address] [place], [address] Neutrophils/100 WBC (Bld) 84.2 % High 47-70 [facility] Comment on above: Order Comment: Order Date: 04/28/24 Order Info: 018- - CBCD Performed By: #### L 503.6150, L506.1000, L506.0250, L501.5200, L501.2300, L500.4100, L509.1000, L500.4050, L503.0105, L503.6075, L100.0100, L503.6550, L501.9520 #### [facility] [address] [place], [place], [phone] ([phone] Nucleated RBC (Bld) [#/Vol] 0 10*3/uL Normal 0-5 [facility] Comment on above: Order Comment: Order Date: 04/28/24 Order Info: 018-1 - CBCD Performed By: #### L 503.6150, L506.1000, L506.0250, L501.5200, L501.2300, L500.4100, L509.1000, L500.4050, L503.0105, L503.6075, L100.0100, L503.6550, L501.9520 #### [facility] [address] [place], [address] Platelet mean volume (Bld) [Entitic vol] 9.6 fL Normal 6.2-12.0 [facility] Comment on above: Order Comment: Order Date: 04/28/24 Order Info: 0184-1 - CBCD Performed By: #### L 503.6150, L506.1000, L506.0250, L501.5200, L501.2300, L500.4100, L509.1000, L500.4050, L503.0105, L503.6075, L100.0100, L503.6550, L501.9520 #### [facility] [address] [place], [place], [phone] (100) Platelets (Bld) [#/Vol] 283 10*3/uL Normal 150-450 [facility] Comment on above: Order Comment: Order Date: 04/28/24 Order Info: 0184- - CBCD Performed By: #### L 503.6150, L506.1000, L506.0250, L501.5200, L501.2300, L500.4100, L509.1000, L500.4050, L503.0105, L503.6075, L100.0100, L503.6550, L501.9520 #### [facility] [address] [place], [place], [phone] (484) RBC (Bld) [#/Vol] 4.61 10*6/uL Normal 4.6-6.2 [facility] Comment on above: Order Comment: Order Date: 04/28/24 Order Info: 0184-1 - CBCD Performed By: #### L 503.6150, L506.1000, L506.0250, L501.5200, L501.2300, L500.4100, L509.1000, L500.4050, L503.0105, L503.6075, L100.0100, L503.6550, L501.9520 #### [facility] [address] [place], [place], [phone] (511) RDW SD 48.7 fl High 35.1-43.9 [facility] Comment on above: Order Comment: Order Date: 04/28/24 Order Info: 018- - CBCD Performed By: #### L 503.6150, L506.1000, L506.0250, L501.5200, L501.2300, L500.4100, L509.1000, L500.4050, L503.0105, L503.6075, L100.0100, L503.6550, L501.9520 #### [facility] [address] [place], [place], [id number] WBC (Bld) [#/Vol] 13.6 10*3/uL High 4.4-11.0 [facility] Comment on above: Order Comment: Order Date: 04/28/24 Order Info: 01808-22 - CBCD Performed By: #### L 503.6150, L506.1000, L506.0250, L501.5200, L501.2300, L500.4100, L509.1000, L500.4050, L503.0105, L503.6075, L100.0100, L503.6550, L501.9520 #### [facility] [address] [place], [place], [id number] Comprehensive Metabolic Prof ilon 04-28-2024 Albumin [Mass/Vol] 3.7 g/dL Normal 3.2-5.0 [facility] Comment on above: Order Comment: Order Date: 04/28/24 Order Info: 0786-1 - CMP Order Info: 25142-8 - LIPID Order Info: 3084-1 - URIC Order Info: 2777-1 - PHOS Order Info: 10096-6 - MG Order Info: 3016-3 - TSH Order Info: 2500-7 - TIBC Order Info: 2128-4 - FE Order Info: 2276-4 - AG Order Info: 2284-8 - FOLS N Performed By: #### L 503.6150, L506.1000, L506.0250, L501.5200, L501.2300, L500.4100, L509.1000, L500.4050, L503.0105, L503.6075, L100.0100, L503.6550, L501.9520 #### [facility] [address] [place], [place], [address] Albumin/Globulin [Mass ratio] 1.0 {ratio} Normal 0.9-2.4 [facility] Comment on above: Order Comment: Order Date: 04/28/24 Order Info: 07 - CMP Order Info: - LIPID Order Info: 3083-05 - URIC Order Info: 2776-05 - PHOS Order Info: 17770-6 - MG Order Info: 3015-07 - TSH Order Info: 2499-11 TIBC Order Info: 2497-08 - FE Order Info: 2275-08 - AG Order Info: 2283-12 - FOLS N Performed By: #### L 503.6150, L506.1000, L506.0250, L501.5200, L501.2300, L500.4100, L509.1000, L500.4050, L503.0105, L503.6075, L100.0100, L503.6550, L501.9520 #### [facility] [address] [place], [place], [id number] ALK P 101 U/L Normal 45-117 [facility] Comment on above: Order Comment: Order Date: 04/28/24 Order Info: 785-05 - CMP Order Info: - LIPID Order Info: 3083-05 - URIC Order Info: 2776-05 - PHOS Order Info: 72882-2 - MG Order Info: 3015-07 - TSH Order Info: 2499-11 - TIBC Order Info: 2497-08 - FE Order Info: 2275-08 - AG Order Info: 2283-12 - FOLS N Performed By: #### L 503.6150, L506.1000, L506.0250, L501.5200, L501.2300, L500.4100, L509.1000, L500.4050, L503.0105, L503.6075, L100.0100, L503.6550, L501.9520 #### [facility] [address] [place], [place], [id number] ALT [Catalytic activity/Vol] 40 U/L Normal 16-61 [facility] Comment on above: Order Comment: Order Date: 04/28/24 Order Info: 785- - CMP Order Info: - LIPID Order Info: 3083-05 - URIC Order Info: 2776-05 - PHOS Order Info: 02561-4 - MG Order Info: 3 - TSH Order Info: 2499-11 - TIBC Order Info: 2497-08 - FE Order Info: 2275-08 - AG Order Info: 2283-12 - FOLS N Performed By: #### L 503.6150, L506.1000, L506.0250, L501.5200, L501.2300, L500.4100, L509.1000, L500.4050, L503.0105, L503.6075, L100.0100, L503.6550, L501.9520 #### [facility] [address] [place], [place], [address] AST [Catalytic activity/Vol] 12 U/L Low 15-37 [facility] Comment on above: Order Comment: Order Date: 04/28/24 Order Info: 785-05 - CMP Order Info: - LIPID Order Info: 3083-05 - URIC Order Info: 2776-05 - PHOS Order Info: 17427-4 - MG Order Info: 3 - TSH Order Info: 2499-11 - TIBC Order Info: 2497-08 - FE Order Info: 2275-08 - AG Order Info: 2283-12 - FOLS N Performed By: #### L 503.6150, L506.1000, L506.0250, L501.5200, L501.2300, L500.4100, L509.1000, L500.4050, L503.0105, L503.6075, L100.0100, L503.6550, L501.9520 #### [facility] [address] [place], [place], [address] Bilirubin [Mass/Vol] 1.30 mg/dL High 0.20-1.00 [facility] Comment on above: Order Comment: Order Date: 04/28/24 Order Info: 785- - CMP Order Info: - LIPID Order Info: 3083-05 - URIC Order Info: 2776-05 - PHOS Order Info: 04132-7 - MG Order Info: 3 - TSH Order Info: 2499-11 - TIBC Order Info: 2497-08 - FE Order Info: 2275-08 - AG Order Info: 2283-12 - FOLS N Result Comment: For patients on eltrombopag therapy, use of Dimension [place] TBIL is not recommended. Performed By: #### L 503.6150, L506.1000, L506.0250, L501.5200, L501.2300, L500.4100, L509.1000, L500.4050, L503.0105, L503.6075, L100.0100, L503.6550, L501.9520 #### [facility] [address] [place], [place], [id number] BUN/CRE 20.4 RATIO High 10-20 [facility] Comment on above: Order Comment: Order Date: 04/28/24 Order Info: 785-05 - CMP Order Info: - LIPID Order Info: 3083-05 - URIC Order Info: 2776-05 - PHOS Order Info: 19039-0 - MG Order Info: 3 - TSH Order Info: 2499-11 - TIBC Order Info: 2497-08 - FE Order Info: 2275-08 - AG Order Info: 2283-12 - FOLS N Performed By: #### L 503.6150, L506.1000, L506.0250, L501.5200, L501.2300, L500.4100, L509.1000, L500.4050, L503.0105, L503.6075, L100.0100, L503.6550, L501.9520 #### [facility] [address] [place], [place], [id number] CA,Total 9.5 mg/dL Normal 8.5-10.1 [facility] Comment on above: Order Comment: Order Date: 04/28/24 Order Info: 0786-1 - CMP Order Info: 15614-3 - LIPID Order Info: 3083-05 - URIC Order Info: 2776-05 - PHOS Order Info: 65378-0 - MG Order Info: 3 - TSH Order Info: 2499-11 - TIBC Order Info: 2497-08 - FE Order Info: 2275-08 - AG Order Info: 2283-12 - FOLS N Performed By: #### L 503.6150, L506.1000, L506.0250, L501.5200, L501.2300, L500.4100, L509.1000, L500.4050, L503.0105, L503.6075, L100.0100, L503.6550, L501.9520 #### [facility] [address] [place], [place], [id number] Chloride [Moles/Vol] 105 mmol/L Normal 98-107 [facility] Comment on above: Order Comment: Order Date: 04/28/24 Order Info: 0786- - CMP Order Info: 98242-3 - LIPID Order Info: 3083-05 - URIC Order Info: 2776-05 - PHOS Order Info: 52700-6 - MG Order Info: 3015-07 - TSH Order Info: 2499-11 - TIBC Order Info: 2497-08 - FE Order Info: 2275-08 - AG Order Info: 2283-12 - FOLS N Performed By: #### L 503.6150, L506.1000, L506.0250, L501.5200, L501.2300, L500.4100, L509.1000, L500.4050, L503.0105, L503.6075, L100.0100, L503.6550, L501.9520 #### [facility] [address] [place], [place], [address] CO2 [Moles/Vol] 26.0 mmol/L Normal 21.0-32.0 [facility] Comment on above: Order Comment: Order Date: 04/28/24 Order Info: 0786-1 - CMP Order Info: 20102-3 - LIPID Order Info: 3083-05 - URIC Order Info: 2776-05 - PHOS Order Info: 25580-3 - MG Order Info: 3015-07 - TSH Order Info: 2499-11 - TIBC Order Info: 2497-08 - FE Order Info: 2275-08 - AG Order Info: 2283-12 - FOLS N Performed By: #### L 503.6150, L506.1000, L506.0250, L501.5200, L501.2300, L500.4100, L509.1000, L500.4050, L503.0105, L503.6075, L100.0100, L503.6550, L501.9520 #### [facility] [address] [place], [place], [address] Creatinine [Mass/Vol] 1.52 mg/dL High 0.70-1.30 [facility] Comment on above: Order Comment: Order Date: 04/28/24 Order Info: 785-05 - CMP Order Info: 64399-4 - LIPID Order Info: 3083-05 - URIC Order Info: 2776-05 - PHOS Order Info: 73393-3 - MG Order Info: 3015-07 - TSH Order Info: 2499-11 - TIBC Order Info: 2497-08 - FE Order Info: 2275-08 - AG Order Info: 2283-12 - FOLS N Result Comment: The validity of the calculated GFR GFRAA in patients over 70 years has not been determined. Clinical correlation is essential. Performed By: #### L 503.6150, L506.1000, L506.0250, L501.5200, L501.2300, L500.4100, L509.1000, L500.4050, L503.0105, L503.6075, L100.0100, L503.6550, L501.9520 #### [facility] [address] [place], [address] EST GFR - AA 59 mL/min Low >60 [facility] Comment on above: Order Comment: Order Date: 04/28/24 Order Info: 0786 - CMP Order Info: - LIPID Order Info: 3083-05 - URIC Order Info: 2776-05 - PHOS Order Info: 49869-5 - MG Order Info: 3015-07 - TSH Order Info: 2499-11 - TIBC Order Info: 2497-08 - FE Order Info: 2275-08 - AG Order Info: 2283-12 - FOLS N Result Comment: Afri can [place] GFR Calc Performed By: #### L 503.6150, L506.1000, L506.0250, L501.5200, L501.2300, L500.4100, L509.1000, L500.4050, L503.0105, L503.6075, L100.0100, L503.6550, L501.9520 #### [facility] [address] [place], [address] GAP 8 Normal 5-15 [facility] Comment on above: Order Comment: Order Date: 04/28/24 Order Info: 0786 - CMP Order Info: - LIPID Order Info: 3083-05 - URIC Order Info: 2776-05 - PHOS Order Info: 25526-4 - MG Order Info: 3015-07 - TSH Order Info: 2499-11 - TIBC Order Info: 2497-08 - FE Order Info: 2275-08 - AG Order Info: 2283-12 - FOLS N Performed By: #### L 503.6150, L506.1000, L506.0250, L501.5200, L501.2300, L500.4100, L509.1000, L500.4050, L503.0105, L503.6075, L100.0100, L503.6550, L501.9520 #### [facility] [address] [place], [place], [id number] GFR/1.73 sq M.predicted among non-blacks MDRD (S/P/Bld) [Vol rate/Area] 49 mL/min/{1.73_m2} Low >60 [facility] Comment on above: Order Comment: Order Date: 04/28/24 Order Info: 785-05 - CMP Order Info: - LIPID Order Info: 3083-05 - URIC Order Info: 2776-05 - PHOS Order Info: 62225-0 - MG Order Info: 3 - TSH Order Info: 2499-11 - TIBC Order Info: 2497-08 - FE Order Info: 2275-08 - AG Order Info: 2283-12 - FOLS N Result Comment: Non- GFR Calc Performed By: #### L 503.6150, L506.1000, L506.0250, L501.5200, L501.2300, L500.4100, L509.1000, L500.4050, L503.0105, L503.6075, L100.0100, L503.6550, L501.9520 #### [facility] [address] [place], [place], [address] Globulin (S) [Mass/Vol] 3.7 g/dL Normal 2.2-4.2 [facility] Comment on above: Order Comment: Order Date: 04/28/24 Order Info: 785-05 - CMP Order Info: - LIPID Order Info: 3083-05 - URIC Order Info: 2776-05 - PHOS Order Info: 99083-3 - MG Order Info: 3 - TSH Order Info: 2499-11 - TIBC Order Info: 2497-08 - FE Order Info: 2275-08 - AG Order Info: 2283-12 - FOLS N Performed By: #### L 503.6150, L506.1000, L506.0250, L501.5200, L501.2300, L500.4100, L509.1000, L500.4050, L503.0105, L503.6075, L100.0100, L503.6550, L501.9520 #### [facility] [address] [place], [address] Glucose [Mass/Vol] 130 mg/dL High 74-106 [facility] Comment on above: Order Comment: Order Date: 04/28/24 Order Info: 785-05 - CMP Order Info: - LIPID Order Info: 3083-05 - URIC Order Info: 2776-05 - PHOS Order Info: 17938-7 - MG Order Info: 3015-07 - TSH Order Info: 2499-11 - TIBC Order Info: 2497-08 - FE Order Info: 2275-08 - AG Order Info: 2283-12 - FOLS N Result Comment: Fast ing Glucose result greater than or equal to 126 mg/dL suggests DIABETES MELLITUS per A.D.A. criteria. Performed By: #### L 503.6150, L506.1000, L506.0250, L501.5200, L501.2300, L500.4100, L509.1000, L500.4050, L503.0105, L503.6075, L100.0100, L503.6550, L501.9520 #### [facility] [address] [place], [place], [address] Potassium [Moles/Vol] 4.1 mmol/L Normal 3.5-5.1 [facility] Comment on above: Order Comment: Order Date: 04/28/24 Order Info: 785-05 - CMP Order Info: - LIPID Order Info: 3083-05 - URIC Order Info: 2776-05 - PHOS Order Info: 54346-0 - MG Order Info: 3015-07 - TSH Order Info: 2499-11 TIBC Order Info: 2497-08 FE Order Info: 2275-08 - AG Order Info: 2283-12 - FOLS N Performed By: #### L 503.6150, L506.1000, L506.0250, L501.5200, L501.2300, L500.4100, L509.1000, L500.4050, L503.0105, L503.6075, L100.0100, L503.6550, L501.9520 #### [facility] [address] [place], [place], [id number] Sodium [Moles/Vol] 139 mmol/L Normal 136-145 [facility] Comment on above: Order Comment: Order Date: 04/28/24 Order Info: 07- - CMP Order Info: - LIPID Order Info: 3083-05 - URIC Order Info: 2776-05 - PHOS Order Info: 01635-0 - MG Order Info: 3015-07 - TSH Order Info: 2499-11 TIBC Order Info: 2497-08 - FE Order Info: 2275-08 - AG Order Info: 2283-12 - FOLS N Performed By: #### L 503.6150, L506.1000, L506.0250, L501.5200, L501.2300, L500.4100, L509.1000, L500.4050, L503.0105, L503.6075, L100.0100, L503.6550, L501.9520 #### [facility] [address] [place], [place], [id number] T PROT 7.4 g/dL Normal 6.4-8.2 [facility] Comment on above: Order Comment: Order Date: 04/28/24 Order Info: 785-05 - CMP Order Info: - LIPID Order Info: 3083-05 - URIC Order Info: 2776-05 - PHOS Order Info: 12975-9 - MG Order Info: 3 - TSH Order Info: 2499-11 - TIBC Order Info: 2497-08 - FE Order Info: 2275-08 - AG Order Info: 2283-12 - FOLS N Performed By: #### L 503.6150, L506.1000, L506.0250, L501.5200, L501.2300, L500.4100, L509.1000, L500.4050, L503.0105, L503.6075, L100.0100, L503.6550, L501.9520 #### [facility] [address] [place], [place], [address] Urea nitrogen [Mass/Vol] 31 mg/dL High 7-18 [facility] Comment on above: Order Comment: Order Date: 04/28/24 Order Info: 0786-1 - CMP Order Info: 10427-2 - LIPID Order Info: 3084-1 - URIC Order Info: 2777-1 - PHOS Order Info: 80516-0 - MG Order Info: 3016-3 - TSH Order Info: 2500-7 - TIBC Order Info: 0838-4 - FE Order Info: 1656-4 - AG Order Info: 5724-8 - FOLS N Performed By: #### L 503.6150, L506.1000, L506.0250, L501.5200, L501.2300, L500.4100, L509.1000, L500.4050, L503.0105, L503.6075, L100.0100, L503.6550, L501.9520 #### [facility] [address] [place], [place], [address] Ferritinon 04-28-2024 Ferritin [Mass/Vol] 313 ng/mL Normal 26-388 [facility] Comment on above: Order Comment: Order Date: 04/28/24 Order Info: 0565-1 - PTHIN Performed By: #### L 503.6150, L506.1000, L506.0250, L501.5200, L501.2300, L500.4100, L509.1000, L500.4050, L503.0105, L503.6075, L100.0100, L503.6550, L501.9520 #### [facility] [address] [place], [place], [address] Folates, (Folic Acid)on FOLATES 8.00 ng/mL Normal 3.1-55.4 [facility] Comment on above: Order Comment: Order Date: 04/28/24 Order Info: 0786-1 - CMP Order Info: 54143-8 - LIPID Order Info: 3084-1 - URIC Order Info: 2777-1 - PHOS Order Info: 31787-1 - MG Order Info: 3016-3 - TSH Order Info: 2500-7 - TIBC Order Info: 2498-4 - FE Order Info: 2276-4 - AG Order Info: 2284-8 - FOLS N Performed By: #### L 503.6150, L506.1000, L506.0250, L501.5200, L501.2300, L500.4100, L509.1000, L500.4050, L503.0105, L503.6075, L100.0100, L503.6550, L501.9520 #### [facility] [address] [facility] [place], [place], [address] Ironon 04-28-2024 Iron [Mass/Vol] 98 ug/dL Normal 65-175 [facility] Comment on above: Order Comment: Order Date: 04/28/24 Order Info: 0565-1 - PTHIN Performed By: #### L 503.6150, L506.1000, L506.0250, L501.5200, L501.2300, L500.4100, L509.1000, L500.4050, L503.0105, L503.6075, L100.0100, L503.6550, L501.9520 #### [facility] [address] [facility] [place], [place], [id number] Iron Binding Capacity,Totalo n 04-28-2024 TIBC 347 ug/dL Normal 250-450 [facility] Comment on above: Order Comment: Order Date: 04/28/24 Order Info: 0565-1 - PTHIN Performed By: #### L 503.6150, L506.1000, L506.0250, L501.5200, L501.2300, L500.4100, L509.1000, L500.4050, L503.0105, L503.6075, L100.0100, L503.6550, L501.9520 #### [facility] [address] [place], [place], [address] Lipid Profileon 04-28-2024 Cholesterol [Mass/Vol] 186 mg/dL Normal 200 [facility] Comment on above: Order Comment: Order Date: 04/28/24 Order Info: 785-05 - CMP Order Info: - LIPID Order Info: 3083-05 - URIC Order Info: 2776-05 - PHOS Order Info: [id number] - MG Order Info: 3 - TSH Order Info: 2499-11 - TIBC Order Info: 2497-08 - FE Order Info: 2275-08 - AG Order Info: 2283-12 - FOLS N Result Comment: <200 mg/dL Desirable 200-240 mg/dL Borderline >240 mg/dL High Risk Performed By: #### L 503.6150, L506.1000, L506.0250, L501.5200, L501.2300, L500.4100, L509.1000, L500.4050, L503.0105, L503.6075, L100.0100, L503.6550, L501.9520 #### [facility] [address] [place], [place], [address] Cholesterol in HDL [Mass/Vol] 83 mg/dL Normal [facility] Comment on above: Order Comment: Order Date: 04/28/24 Order Info: 785-05 - CMP Order Info: - LIPID Order Info: 3083-05 - URIC Order Info: 2776-05 - PHOS Order Info: 37989-2 - MG Order Info: 3 - TSH Order Info: 2499-11 - TIBC Order Info: 2497-08 - FE Order Info: 2275-08 - AG Order Info: 2283-12 - FOLS N Result Comment: The drugs N-Acetylcysteine and Metamizole may falsely depress this assay. Reference Range HDL <40 mg/dL Low HDL Cholesterol HDL >or= 60 mg/dL High HDL Cholesterol Performed By: #### L 503.6150, L506.1000, L506.0250, L501.5200, L501.2300, L500.4100, L509.1000, L500.4050, L503.0105, L503.6075, L100.0100, L503.6550, L501.9520 #### [facility] [address] [place], [place], [address] Cholesterol in LDL [Mass/Vol] 75 mg/dL Normal 0-130 [facility] Comment on above: Order Comment: Order Date: 04/28/24 Order Info: 0786 - CMP Order Info: - LIPID Order Info: 3083-05 - URIC Order Info: 2776-05 - PHOS Order Info: 82566-8 - MG Order Info: 3015-07 - TSH Order Info: 2499-11 TIBC Order Info: 2497-08 - FE Order Info: 2275-08 - AG Order Info: 2283-12 - FOLS N Performed By: #### L 503.6150, L506.1000, L506.0250, L501.5200, L501.2300, L500.4100, L509.1000, L500.4050, L503.0105, L503.6075, L100.0100, L503.6550, L501.9520 #### [facility] [address] [place], [place], [address] Cholesterol in VLDL [Mass/Vol] 28 mg/dL Normal 5-40 [facility] Comment on above: Order Comment: Order Date: 04/28/24 Order Info: 07 - CMP Order Info: 34769-6 - LIPID Order Info: 3083-05 - URIC Order Info: 2776-05 - PHOS Order Info: 85632-2 - MG Order Info: 3015-07 - TSH Order Info: 2499-11 - TIBC Order Info: 2497-08 - FE Order Info: 2275-08 - AG Order Info: 2283-12 - FOLS N Performed By: #### L 503.6150, L506.1000, L506.0250, L501.5200, L501.2300, L500.4100, L509.1000, L500.4050, L503.0105, L503.6075, L100.0100, L503.6550, L501.9520 #### [facility] [address] [place], [place], [address] Triglyceride [Mass/Vol] 141 mg/dL Normal [facility] Comment on above: Order Comment: Order Date: 04/28/24 Order Info: 785- - CMP Order Info: - LIPID Order Info: 3083-05 - URIC Order Info: 2776-05 - PHOS Order Info: 47654-9 - MG Order Info: 3 - TSH Order Info: 2499-11 - TIBC Order Info: 2497-08 - FE Order Info: 2275-08 - AG Order Info: 2283-12 - FOLS N Result Comment: The drugs N-Acetylcysteine and Metamizole may falsely depress this assay. Serum Triglycerides Reference Interval Normal <150 mg/dL Borderline high 150 - 199 mg/dL High 200 - 499 mg/dL Very High > or = 500 mg/dL Performed By: #### L 503.6150, L506.1000, L506.0250, L501.5200, L501.2300, L500.4100, L509.1000, L500.4050, L503.0105, L503.6075, L100.0100, L503.6550, L501.9520 #### [facility] [address] [place], [place], [address] Magnesiumon 04-28-2024 Magnesium [Mass/Vol] 2.2 mg/dL Normal 1.6-2.6 [facility] Comment on above: Order Comment: Order Date: 04/28/24 Order Info: 07 - CMP Order Info: - LIPID Order Info: 3083-05 - URIC Order Info: 7-1 - PHOS Order Info: 51883-1 - MG Order Info: 3016-3 - TSH Order Info: 25007 - TIBC Order Info: 2497-08 - FE Order Info: 2275-08 - AG Order Info: 2283-12 - FOLS N Performed By: #### L 503.6150, L506.1000, L506.0250, L501.5200, L501.2300, L500.4100, L509.1000, L500.4050, L503.0105, L503.6075, L100.0100, L503.6550, L501.9520 #### [facility] [address] [place], [place], [address] PTHINon 04-28-2024 PTH 76.0 pg/mL Normal 18.4-80.1 [facility] Comment on above: Order Comment: Order Date: 04/28/24 Order Info: 0565-1 - PTHIN Performed By: #### L 503.6150, L506.1000, L506.0250, L501.5200, L501.2300, L500.4100, L509.1000, L500.4050, L503.0105, L503.6075, L100.0100, L503.6550, L501.9520 #### [facility] [address] [place], [place], [address] Phosphoruson 04-28-2024 Phosphate [Mass/Vol] 3.5 mg/dL Normal 2.5-4.9 [facility] Comment on above: Order Comment: Order Date: 04/28/24 Order Info: 0786-1 - CMP Order Info: 45419-8 - LIPID Order Info: 3084-1 - URIC Order Info: 2777-1 - PHOS Order Info: 75526-5 - MG Order Info: 3016-3 - TSH Order Info: 2500-7 - TIBC Order Info: 2498-4 - FE Order Info: 2276-4 - AG Order Info: 2284-8 - FOLS N Performed By: #### L 503.6150, L506.1000, L506.0250, L501.5200, L501.2300, L500.4100, L509.1000, L500.4050, L503.0105, L503.6075, L100.0100, L503.6550, L501.9520 #### [facility] [address] [place], [address] Protein+Creatinine Ratio,Uri neon 04-28-2024 PROT:CRE RATIO TNP Normal 0-200 [facility] Comment on above: Performed By: #### L 503.6150, L506.1000, L506.0250, L501.5200, L501.2300, L500.4100, L509.1000, L500.4050, L503.0105, L503.6075, L100.0100, L503.6550, L501.9520 #### [facility] [address] [place], [address] PROTEIN,UR.RAN. < 6.0 Normal <11.9 [facility] Comment on above: Performed By: #### L 503.6150, L506.1000, L506.0250, L501.5200, L501.2300, L500.4100, L509.1000, L500.4050, L503.0105, L503.6075, L100.0100, L503.6550, L501.9520 #### [facility] [address] [place], [address] UR CREAT 34.00 mg/dL Normal NO RANGE EST. [facility] Comment on above: Performed By: #### L 503.6150, L506.1000, L506.0250, L501.5200, L501.2300, L500.4100, L509.1000, L500.4050, L503.0105, L503.6075, L100.0100, L503.6550, L501.9520 #### [facility] [address] [place], [address] Thyroid Stim Hormone (TSH)on 04-28-2024 TSH 0.922 uIU/mL Normal 0.358-3.74 0 [facility] Comment on above: Order Comment: Order Date: 04/28/24 Order Info: 0786-1 - CMP Order Info: 84534-1 - LIPID Order Info: 30841 - URIC Order Info: 2776-05 - PHOS Order Info: 65279-7 - MG Order Info: 3015-07 - TSH Order Info: 2499-11 TIBC Order Info: 2497-08 - FE Order Info: 2275-08 - AG Order Info: 2283-12 FOLS N Performed By: #### L 503.6150, L506.1000, L506.0250, L501.5200, L501.2300, L500.4100, L509.1000, L500.4050, L503.0105, L503.6075, L100.0100, L503.6550, L501.9520 #### [facility] [address] [place], [place], [id number] Uric Acidon 04-28-2024 URIC 8.9 mg/dL High 3.5-7.2 [facility] Comment on above: Order Comment: Order Date: 04/28/24 Order Info: 0786-1 - CMP Order Info: 97395-4 - LIPID Order Info: 3083-05 - URIC Order Info: 2776-05 - PHOS Order Info: [id number] - MG Order Info: 3015-07 - TSH Order Info: 2499-11 TIBC Order Info: 2497-08 - FE Order Info: 2275-08 - AG Order Info: 2283-12 - FOLS N Result Comment: The drugs N-Acetylcysteine and Metamizole may falsely depress this assay. Performed By: #### L 503.6150, L506.1000, L506.0250, L501.5200, L501.2300, L500.4100, L509.1000, L500.4050, L503.0105, L503.6075, L100.0100, L503.6550, L501.9520 #### [facility] [address] [place], [place], [address] Vitamin B12on 04-28-2024 Cobalamin (Vitamin B12) [Mass/Vol] 275 pg/mL Normal 211-911 [facility] Comment on above: Order Comment: Order Date: 04/28/24 Order Info: 9 - B12 Order Info: 54770-3 - VITD25 Performed By: #### L 503.6150, L506.1000, L506.0250, L501.5200, L501.2300, L500.4100, L509.1000, L500.4050, L503.0105, L503.6075, L100.0100, L503.6550, L501.9520 #### [facility] [address] [place], [address] Vitamin D,25 Hydroxyon 04-28 Vitamin D 25-OH 40.6 ng/mL Normal [facility] Comment on above: Order Comment: Order Date: 04/28/24 Order Info: 9 - B12 Order Info: 57691-0 - VITD25 Result Comment: Purnima min D 25(OH) Status Range Deficiency <20 ng/mL (50nmol/L) Insufficiency 20 - 30 ng/mL (50 - 75 nmol/L) Sufficiency 30 - 100 ng/mL (75 - 250 nmol/L) Toxicity >100 ng/mL (>250 nmol/L) Performed By: #### L 503.6150, L506.1000, L506.0250, L501.5200, L501.2300, L500.4100, L509.1000, L500.4050, L503.0105, L503.6075, L100.0100, L503.6550, L501.9520 #### [facility] [address] [place], [address] Emergency Department Summary on 04-23-2024 Emergency Department Summary [facility] Medical Records Department [address] [place] [address] Emergency Department Summary 04/23/24 MR#: [id number] Acct: [id number] Name: WESLEYORTEGA W Rep #: [id number] : 1955 68 From: Andre Rueda MD [...] Prior similar symptoms: Yes Recent Illness[facility] Medical History Left rotator cuff tear [...] (hypertension) Hyperlipidemia Esophageal reflux Coronary atherosclerosis of pauma coronary vessel Home Medications ???Medication ???Instructions ???Recorded [...] History o (more content not included)... Normal [facility] PSA,Total - Annual Screenon 04-12-2024 PSA,TOT SCREEN 1.67 ng/mL Normal 0.00-4.00 [facility] Comment on above: Result Comment: This test was performed using the TPSA assay method for the [employer] chemistry system. Values obtained with different assay methods cannot be used interchangably. When changing PSA assays in the course of monitoring a patient, additional sequential testing should be carried out to confirm baseline values. Performed By: #### L 503.6150, L506.1000, L506.0250, L501.5200, L501.2300, L500.4100, L509.1000, L500.4050, L503.0105, L503.6075, L100.0100, L503.6550, L501.9520 #### [facility] [address] [facility] [place], [place], [address] Extremity Lower WITH Contras ton 04-11-2024 Extremity Lower WITH Contrast [facility] Imaging Services [address] [place] [address] Extremity Lower WITH Contrast MR#: [id number] Acct: [id number] Name: SHANNON OLSON Rep #: [id number] : 1955 M 68 From: Beka tariq MD PCP: Dr. Finn Ferrell MD Status: REG CLI Study: Extremity Lower WITH Contrast Date of Exam: Exam# [id number] Ordering Dr: Jenniffer Luna MEDICAL ART THERAPIST MEDICAL ART THERAPIST-C 2:[id number] STUDY: CT RIGHT FOOT REASON FOR EXAM: [...] 12:48 EST Reading Location ID and State: [address] [place] [address] , Service support , CC: KYLIE Luna; Dr. Finn Ferrell MD Camp Advisor: Signed Normal [facility] Emergency Department Summary on 04-08-2024 Emergency Department Summary [facility] Medical Records Department [address] [place] [address] Emergency Department Summary 04/08/24 MR#: [id number] Acct: [id number] Name: SHANNON OLSON Rep #: [id number] : 1955 68 From: Ronald Churchill MD [...] No fevers or chills, no other symptoms. [facility] Medical History Left rotator cuff tear History [...] (hypertension) Hyperlipidemia Esophageal reflux Coronary atherosclerosis of pauma coronary vessel Home Medications ???Medication ???Instructions ???Recorded ???Last Taken ???Type minoxidil 10 mg tablet 5 mg PO BID blood pressure 10/05/19 05/20/23 History nitroglycerin 0.4 mg sublingual 0.4 mg sublingual Q5-15M PRN cp 10/05/19 Unknown History tablet clopidogrel 75 mg tablet (Plavix) 75 mg PO DAILY 04/19/22 12/27/23 History apixaban 5 mg tablet (Eliquis) 5 [...] neck p (more content not included)... Normal [facility] Basic Metabolic Profile (BMP )on 03-26-2024 BUN/CRE 21.0 RATIO High 10-20 [facility] Comment on above: Performed By: #### L 503.6150, L506.1000, L506.0250, L501.5200, L501.2300, L500.4100, L509.1000, L500.4050, L503.0105, L503.6075, L100.0100, L503.6550, L501.9520 #### [facility] [address] [place], [place], [phone] (461) CA,Total 9.0 mg/dL Normal 8.5-10.1 [facility] Comment on above: Performed By: #### L 503.6150, L506.1000, L506.0250, L501.5200, L501.2300, L500.4100, L509.1000, L500.4050, L503.0105, L503.6075, L100.0100, L503.6550, L501.9520 #### [facility] [address] [place], [place], [phone] (438) Chloride [Moles/Vol] 108 mmol/L High 98-107 [facility] Comment on above: Performed By: #### L 503.6150, L506.1000, L506.0250, L501.5200, L501.2300, L500.4100, L509.1000, L500.4050, L503.0105, L503.6075, L100.0100, L503.6550, L501.9520 #### [facility] [address] [place], [place], [phone] (093) CO2 [Moles/Vol] 25.0 mmol/L Normal 21.0-32.0 [facility] Comment on above: Performed By: #### L 503.6150, L506.1000, L506.0250, L501.5200, L501.2300, L500.4100, L509.1000, L500.4050, L503.0105, L503.6075, L100.0100, L503.6550, L501.9520 #### [facility] [address] [place], [place], [address] Creatinine [Mass/Vol] 1.57 mg/dL High 0.70-1.30 [facility] Comment on above: Result Comment: The validity of the calculated GFR GFRAA in patients over 70 years has not been determined. Clinical correlation is essential. Performed By: #### L 503.6150, L506.1000, L506.0250, L501.5200, L501.2300, L500.4100, L509.1000, L500.4050, L503.0105, L503.6075, L100.0100, L503.6550, L501.9520 #### [facility] [address] [place], [address] ECRCL 69.76 ml/min Normal [facility] Comment on above: Performed By: #### L 503.6150, L506.1000, L506.0250, L501.5200, L501.2300, L500.4100, L509.1000, L500.4050, L503.0105, L503.6075, L100.0100, L503.6550, L501.9520 #### [facility] [address] [place], [place], [address] EST GFR - AA 57 mL/min Low >60 [facility] Comment on above: Result Comment: Afri can Latvian GFR Calc Performed By: #### L 503.6150, L506.1000, L506.0250, L501.5200, L501.2300, L500.4100, L509.1000, L500.4050, L503.0105, L503.6075, L100.0100, L503.6550, L501.9520 #### [facility] [address] [place], [place], [address] GAP 6 Normal 5-15 [facility] Comment on above: Performed By: #### L 503.6150, L506.1000, L506.0250, L501.5200, L501.2300, L500.4100, L509.1000, L500.4050, L503.0105, L503.6075, L100.0100, L503.6550, L501.9520 #### [facility] [address] [place], [place], [phone] (865) GFR/1.73 sq M.predicted among non-blacks MDRD (S/P/Bld) [Vol rate/Area] 47 mL/min/{1.73_m2} Low >60 [facility] Comment on above: Result Comment: Non- GFR Calc Performed By: #### L 503.6150, L506.1000, L506.0250, L501.5200, L501.2300, L500.4100, L509.1000, L500.4050, L503.0105, L503.6075, L100.0100, L503.6550, L501.9520 #### [facility] [address] [place], [place], [address] Glucose [Mass/Vol] 139 mg/dL High 74-106 [facility] Comment on above: Result Comment: Fast ing Glucose result greater than or equal to 126 mg/dL suggests DIABETES MELLITUS per A.D.A. criteria. Performed By: #### L 503.6150, L506.1000, L506.0250, L501.5200, L501.2300, L500.4100, L509.1000, L500.4050, L503.0105, L503.6075, L100.0100, L503.6550, L501.9520 #### [facility] [address] [place], [place], [address] Potassium [Moles/Vol] 4.0 mmol/L Normal 3.5-5.1 [facility] Comment on above: Performed By: #### L 503.6150, L506.1000, L506.0250, L501.5200, L501.2300, L500.4100, L509.1000, L500.4050, L503.0105, L503.6075, L100.0100, L503.6550, L501.9520 #### [facility] [address] [place], [address] Sodium [Moles/Vol] 140 mmol/L Normal 136-145 [facility] Comment on above: Performed By: #### L 503.6150, L506.1000, L506.0250, L501.5200, L501.2300, L500.4100, L509.1000, L500.4050, L503.0105, L503.6075, L100.0100, L503.6550, L501.9520 #### [facility] [address] [place], [place], [address] Urea nitrogen [Mass/Vol] 33 mg/dL High 7-18 [facility] Comment on above: Performed By: #### L 503.6150, L506.1000, L506.0250, L501.5200, L501.2300, L500.4100, L509.1000, L500.4050, L503.0105, L503.6075, L100.0100, L503.6550, L501.9520 #### [facility] [address] [place], [place], [phone] CBC W/Diff, Automatedon 11-0 -2023 Absolute Lymph 2.12 X10 3/uL Normal 0.83-4.51 [facility] Comment on above: Performed By: #### L 503.6150, L506.1000, L506.0250, L501.5200, L501.2300, L500.4100, L509.1000, L500.4050, L503.0105, L503.6075, L100.0100, L503.6550, L501.9520 #### [facility] [address] [facility] [place], [address] Absolute Neut 7.0 X10 3/uL Normal 2.0-7.7 [facility] Comment on above: Performed By: #### L 503.6150, L506.1000, L506.0250, L501.5200, L501.2300, L500.4100, L509.1000, L500.4050, L503.0105, L503.6075, L100.0100, L503.6550, L501.9520 #### [facility] [address] [facility] [place], [address] Basophils/100 WBC (Bld) 0.5 % Normal 0-1 [facility] Comment on above: Performed By: #### L 503.6150, L506.1000, L506.0250, L501.5200, L501.2300, L500.4100, L509.1000, L500.4050, L503.0105, L503.6075, L100.0100, L503.6550, L501.9520 #### [facility] [address] [facility] [place], [address] Eosinophils/100 WBC (Bld) 1.3 % Normal 0-5 [facility] Comment on above: Performed By: #### L 503.6150, L506.1000, L506.0250, L501.5200, L501.2300, L500.4100, L509.1000, L500.4050, L503.0105, L503.6075, L100.0100, L503.6550, L501.9520 #### [facility] [address] [facility] [place], [address] Erythrocyte distribution width (RBC) [Ratio] 14.0 % Normal 11.6-14.6 [facility] Comment on above: Performed By: #### L 503.6150, L506.1000, L506.0250, L501.5200, L501.2300, L500.4100, L509.1000, L500.4050, L503.0105, L503.6075, L100.0100, L503.6550, L501.9520 #### [facility] [address] [place], [place], [phone] (967) Hematocrit (Bld) [Volume fraction] 37.0 % Low 40-54 [facility] Comment on above: Performed By: #### L 503.6150, L506.1000, L506.0250, L501.5200, L501.2300, L500.4100, L509.1000, L500.4050, L503.0105, L503.6075, L100.0100, L503.6550, L501.9520 #### [facility] [address] [place], [place], [phone] (205) Hemoglobin (Bld) [Mass/Vol] 12.4 g/dL Low 13.0-16.5 [facility] Comment on above: Performed By: #### L 503.6150, L506.1000, L506.0250, L501.5200, L501.2300, L500.4100, L509.1000, L500.4050, L503.0105, L503.6075, L100.0100, L503.6550, L501.9520 #### [facility] [address] [place], [address] IG% 0.400 Normal 0.0-0.9 [facility] Comment on above: Result Comment: IG% - Immature Granulocytes (promyelocytes, myelocytes and metamyelocytes) > 1% indicates that a LEFT SHIFT is Present. Performed By: #### L 503.6150, L506.1000, L506.0250, L501.5200, L501.2300, L500.4100, L509.1000, L500.4050, L503.0105, L503.6075, L100.0100, L503.6550, L501.9520 #### [facility] [address] [place], [address] Lymphocytes/100 WBC (Bld) 21.2 % Normal 19-41 [facility] Comment on above: Performed By: #### L 503.6150, L506.1000, L506.0250, L501.5200, L501.2300, L500.4100, L509.1000, L500.4050, L503.0105, L503.6075, L100.0100, L503.6550, L501.9520 #### [facility] [address] [facility] [place], [address] MCH (RBC) [Entitic mass] 30.2 pg Normal 27.0-32.0 [facility] Comment on above: Performed By: #### L 503.6150, L506.1000, L506.0250, L501.5200, L501.2300, L500.4100, L509.1000, L500.4050, L503.0105, L503.6075, L100.0100, L503.6550, L501.9520 #### [facility] [address] [place], [address] MCHC (RBC) [Mass/Vol] 33.5 g/dL Normal 32-36 [facility] Comment on above: Performed By: #### L 503.6150, L506.1000, L506.0250, L501.5200, L501.2300, L500.4100, L509.1000, L500.4050, L503.0105, L503.6075, L100.0100, L503.6550, L501.9520 #### [facility] [address] [place], [address] MCV (RBC) [Entitic vol] 90.0 fL Normal 80-94 [facility] Comment on above: Performed By: #### L 503.6150, L506.1000, L506.0250, L501.5200, L501.2300, L500.4100, L509.1000, L500.4050, L503.0105, L503.6075, L100.0100, L503.6550, L501.9520 #### [facility] [address] [place], [address] Monocytes/100 WBC (Bld) 6.8 % Normal 0-10 [facility] Comment on above: Performed By: #### L 503.6150, L506.1000, L506.0250, L501.5200, L501.2300, L500.4100, L509.1000, L500.4050, L503.0105, L503.6075, L100.0100, L503.6550, L501.9520 #### [facility] [place], [address] Neutrophils/100 WBC (Bld) 69.8 % Normal 47-70 [facility] Comment on above: Performed By: #### L 503.6150, L506.1000, L506.0250, L501.5200, L501.2300, L500.4100, L509.1000, L500.4050, L503.0105, L503.6075, L100.0100, L503.6550, L501.9520 #### [facility] [address] [facility] [place], [address] Nucleated RBC (Bld) [#/Vol] 0 10*3/uL Normal 0-5 [facility] Comment on above: Performed By: #### L 503.6150, L506.1000, L506.0250, L501.5200, L501.2300, L500.4100, L509.1000, L500.4050, L503.0105, L503.6075, L100.0100, L503.6550, L501.9520 #### [facility] [address] [place], [address] Platelet mean volume (Bld) [Entitic vol] 9.2 fL Normal 6.2-12.0 [facility] Comment on above: Performed By: #### L 503.6150, L506.1000, L506.0250, L501.5200, L501.2300, L500.4100, L509.1000, L500.4050, L503.0105, L503.6075, L100.0100, L503.6550, L501.9520 #### [facility] [address] [place], [address] Platelets (Bld) [#/Vol] 238 10*3/uL Normal 150-450 [facility] Comment on above: Performed By: #### L 503.6150, L506.1000, L506.0250, L501.5200, L501.2300, L500.4100, L509.1000, L500.4050, L503.0105, L503.6075, L100.0100, L503.6550, L501.9520 #### [facility] [address] [place], [address] RBC (Bld) [#/Vol] 4.11 10*6/uL Low 4.6-6.2 [facility] Comment on above: Performed By: #### L 503.6150, L506.1000, L506.0250, L501.5200, L501.2300, L500.4100, L509.1000, L500.4050, L503.0105, L503.6075, L100.0100, L503.6550, L501.9520 #### [facility] [address] [place], [address] RDW SD 45.7 fl High 35.1-43.9 [facility] Comment on above: Performed By: #### L 503.6150, L506.1000, L506.0250, L501.5200, L501.2300, L500.4100, L509.1000, L500.4050, L503.0105, L503.6075, L100.0100, L503.6550, L501.9520 #### [facility] [address] [place], [address] WBC (Bld) [#/Vol] 10.0 10*3/uL Normal 4.4-11.0 [facility] Comment on above: Performed By: #### L 503.6150, L506.1000, L506.0250, L501.5200, L501.2300, L500.4100, L509.1000, L500.4050, L503.0105, L503.6075, L100.0100, L503.6550, L501.9520 #### [facility] [address] [facility] [place], [address] Emergency Department Summary on 03-26-2024 Emergency Department Summary [facility] Medical Records Department [address] [place] [address] Emergency Department Summary 03/26/24 MR#: [id number] Acct: [id number] Name: SHANNON OLSON Rep #: [id number] : 1955 68 From: George Pond DO [...] well and therefore comes in for evaluation [facility] Medical History Left rotator cuff tear History [...] (hypertension) Hyperlipidemia Esophageal reflux Coronary atherosclerosis of pauma coronary vessel Home Medications ???Medication ???Instructions ???Recorded [...] abdominal pain, (more content not included)... Normal [facility] Foot min 3 Viewson 4 Foot min 3 Views [facility] [address] [place], [place] [address] Foot min 3 Views MR#: [id number] Acct: [id number] Name: SHANNON OLSON Rep #: [id number] : 1955 M 68 From: Diaz rice MD PCP: Dr. Finn Ferrell MD Status: DEP ER Study: Foot min 3 Views Date of Exam: 03/26/24 Exam# [id number] Ordering Dr: George Pond DO [id number] EXAM: XR RIGHT FOOT COMPLETE, 3 OR [...] Dr. Finn Ferrell MD; George Pond DO Camp Advisor: Signed Normal [facility] Ribs Uni Min 3V w/PA Cheston 03-26-2024 Ribs Uni Min 3V w/PA Chest [facility] Imaging Services [address] [place], [place] [id number] Ribs Uni Min 3V w/PA Chest MR#: [id number] Acct: [id number] Name: SHANNON OLSON Rep #: [id number] : 1955 M 68 From: Diaz rice MD PCP: Dr. Finn Ferrell MD Status: DEP ER Study: Ribs Uni Min 3V w/PA Chest Date of Exam: 03/26 Exam# [id number] Ordering Dr: George Pond DO [id number] EXAM: XR RIGHT RIBS AND AP CHEST, [...] Dr. Finn Ferrell MD; George Pond DO Camp Advisor: Signed Normal [facility] Uric Acidon 03-26-2024 URIC 9.7 mg/dL High 3.5-7.2 [facility] Comment on above: Result Comment: The drugs N-Acetylcysteine and Metamizole may falsely depress this assay. Performed By: #### L 503.6150, L506.1000, L506.0250, L501.5200, L501.2300, L500.4100, L509.1000, L500.4050, L503.0105, L503.6075, L100.0100, L503.6550, L501.9520 #### [facility] [address] [place], [address] 36on 03-23-2024 36 Chart reviewed, this is a duplicate request, RX was sent on 03/14/24. Spoke w/ pt. Normal [facility] 36 Requesting refill clopidogrel (Plavix) [address] [facility] [place] verified Normal [facility] Venous Duplex US, Unilateral on 03-13-2024 Venous Duplex US, Unilateral [facility] [address] [place] [address] Venous Duplex US, Unilateral 03/13/24 1244 MR#: [id number] Acct: [id number] Name: SHANNON OLSON Rep #: [id number] : 1955 68 From: Omar Cortés MD [...] report was called and/or faxed to ED administrator of home health. VL/Venous Duplex US, Unilateral Interpretation Summary Deep [...] Physician: Finn Ferrell Performed By: Yasmani Mcdonald, RVT 03/14/241730 Date Omar Cortés MD CC: Dr. Ronald Churchill MD; Dr. Finn Ferrell MD Date Dictated: 03/13/24 1244 Date Transcribed: 03/14/241730 Camp Advisor: Signed Normal [facility] Emergency Department Summary on 03-12-2024 Emergency Department Summary [facility] Medical Records Department [address] [place] [address] Emergency Department Summary 03/12/24 MR#: [id number] Acct: [id number] Name: SHANNON OLSON Rep #: [id number] : 1955 68 From: Ronald Churchill MD [...] swelling of his foot and the redness. [facility] Medical History Left rotator cuff tear History [...] (hypertension) Hyperlipidemia Esophageal reflux Coronary atherosclerosis of pauma coronary vessel Home Medications ???Medication ???Instructions ???Recorded [...] hematuria. Musc (more content not included)... Normal [facility] 36on 03-09-2024 36 [facility]ACC 02/01/24 Normal [facility] Absolute lymphocyte countOrd ered By: Finn Ferrell on 07-13-2023 Lymphocytes Auto (Unsp spec) [#/Vol] 1.67 10*3/uL 0.83-4.51 [facility] Automated lymphocyte count a s percentage of total leukocytesOrdered By: Finn Ferrell on 07-13-2023 Lymphocytes/100 WBC Auto (Unsp spec) 16.8 % 19-41 [facility] Basophil percentageOrdered B y: Finn Ferrell on 07-13-2023 Basophil percentage 0-5 SEEN /hpf 0-5 [facility] Basophil percentage 3.8 mg/dL 2.5-4.9 [facility] Basophils/100 WBC (Bld) 0.6 % 0-1 [facility] Bilirubin [Mass/Vol] 1.10 mg/dL 0.20-1.00 [facility] Comment on above: For patients on eltr ombopag therapy, use of Dimension [place] TBIL is not recommended. Chloride [Moles/Vol] 109 mmol/L 98-107 [facility] Cholesterol [Mass/Vol] 174 mg/dL <200 [facility] Comment on above: <200 mg/dL Desirable 200-240 mg/dL Borderline >240 mg/dL High Risk Eosinophils/100 WBC (Bld) 1.2 % 0-5 [facility] Glucose [Mass/Vol] 90 mg/dL 74-106 [facility] Hemoglobin (Bld) [Mass/Vol] 13.0 g/dL 13.0-16.5 [facility] Monocytes/100 WBC (Bld) 6.7 % 0-10 [facility] Neutrophils (Bld) [#/Vol] 7.4 10*3/uL 2.0-7.7 [facility] Neutrophils/100 WBC (Bld) 74.2 % 47-70 [facility] Potassium [Moles/Vol] 4.2 mmol/L 3.5-5.1 [facility] Protein [Mass/Vol] 7.9 g/dL 6.4-8.2 [facility] Sodium [Moles/Vol] 141 mmol/L 136-145 [facility] Triglyceride [Mass/Vol] 260 mg/dL <199 [facility] Comment on above: The drugs N-Acetylcy steine and Metamizole may falsely depress this assay.Serum Triglycerides Reference Interval Normal <150 mg/dL Borderline high 150 - 199 mg/dL High 200 - 499 mg/dL Very High > or = 500 mg/dL WBC (Bld) [#/Vol] 10.0 10*3/uL 4.4-11.0 [facility] Bilirubin Test strip Ql (U)O rdered By: Finn Ferrell on 07-13-2023 Bilirubin Ql (U) Negative Negative [facility] Determination of erythrocyte mean corpuscular volume (MCV)Ordered By: Finn Ferrell on 07-13-2023 MCV (RBC) [Entitic vol] 89.6 fL 80-94 [facility] Erythrocyte distribution wid th ratioOrdered By: Finn Ferrell on 07-13-2023 Erythrocyte distribution width (RBC) [Ratio] 14.6 % 11.6-14.6 [facility] Erythrocyte distribution wid th standard deviationOrdered By: Finn Ferrell on 07-13-2023 Erythrocyte distribution width (RBC) [Entitic vol] 47.4 fL 35.1-43.9 [facility] Hematocrit Auto (Bld) [Volum e fraction]Ordered By: Finn Ferrell on 07-13-2023 Hematocrit (Bld) [Volume fraction] 40.5 % 40-54 [facility] Hyaline casts LM.LPF (Urine sed) [#/Area]Ordered By: Finn Ferrell on 07-13-2023 Hyaline casts (Urine sed) [#/Area] 5 /[LPF] 0-5 [facility] Immature granulocytes/100 WB C Auto (Bld)Ordered By: Finn Ferrell on 07-13-2023 Immature granulocytes/100 WBC (Bld) 0.500 % 0.0-0.9 [facility] Comment on above: IG% - Immature Granu locytes (promyelocytes, myelocytes and metamyelocytes) > 1% indicates that a LEFT SHIFT is Present. Ketones Test strip Ql (U)Ord ered By: Finn Ferrell on 07-13-2023 Ketones Ql (U) 5 mg/dl Negative [facility] - Chemistry and C hemistry - challengeOrdered By: Finn Ferrell on 07-13-2023 Albumin/Globulin [Mass ratio] 0.9 {ratio} 0.9-2.4 [facility] ALP [Catalytic activity/Vol] 95 U/L 45-117 [facility] ALT [Catalytic activity/Vol] 31 U/L 16-61 [facility] Cholesterol in HDL [Mass/Vol] 52 mg/dL >40 [facility] Comment on above: The drugs N-Acetylcy steine and Metamizole may falsely depress this assay. Reference Range HDL <40 mg/dL Low HDL Cholesterol HDL >or= 60 mg/dL High HDL Cholesterol Cholesterol in LDL [Mass/Vol] 70 mg/dL 0-130 [facility] CO2 [Moles/Vol] 25.0 mmol/L 21.0-32.0 [facility] Globulin (S) [Mass/Vol] 4.2 g/dL 2.2-4.2 [facility] Magnesium [Mass/Vol] 2.2 mg/dL 1.6-2.6 [facility] Urea nitrogen/Creatinine [Mass ratio] 14.5 mg/mg 10-20 [facility] - Hematology and Cell countsOrdered By: Finn Ferrell on 07-13-2023 MCH (RBC) [Entitic mass] 28.8 pg 27.0-32.0 [facility] MCHC (RBC) [Mass/Vol] 32.1 g/dL 32-36 [facility] Nucleated RBC/100 WBC (Bld) [Ratio] 0 % 0-5 [facility] Platelet mean volume (Bld) [Entitic vol] 9.8 fL 6.2-12.0 [facility] Platelets (Bld) [#/Vol] 292 10*3/uL 150-450 [facility] Mucus LM Ql (Urine sed)Order ed By: Finn Ferrell on 07-13-2023 Mucus Ql (Urine sed) 0 SEEN /hpf [facility] Nitrite Test strip Ql (U)Ord ered By: Finn Ferrell on 07-13-2023 Nitrite Ql (U) Negative Negative [facility] No Panel InformationOrdered By: Finn Ferrell on 07-13-2023 Urine RBC 0 SEEN /hpf 0-5 [facility] Estimated GFR (MDRD) Amer 51 mL/min >60 [facility] Comment on above: GFR Calc Estimated GFR (MDRD) Non-Af Amer 42 mL/min >60 [facility] Comment on above: Non- GFR Calc Parathyroid Hormone (Intact) 58.0 pg/mL 18.4-80.1 [facility] Vitamin D 25-Hydroxy 32.3 ng/mL [facility] Comment on above: Vitamin D 25(OH) Sta tus Range Deficiency <20 ng/mL (50nmol/L) Insufficiency 20 - 30 ng/mL (50 - 75 nmol/L) Sufficiency 30 - 100 ng/mL (75 - 250 nmol/L) Toxicity >100 ng/mL (>250 nmol/L) VLDL Cholesterol 52 mg/dL 5-40 [facility] Protein Test strip Ql (U)Ord ered By: Finn Ferrell on 07-13-2023 Protein Ql (U) Negative Negative [facility] RBC Auto (Bld) [#/Vol]Ordere d By: Finn Ferrell on 07-13-2023 RBC (Bld) [#/Vol] 4.52 10*6/uL 4.6-6.2 [facility] Serum or plasma calcium renu urement (mass/volume)Ordered By: Finn Ferrell on 07-13-2023 Calcium [Mass/Vol] 9.5 mg/dL 8.5-10.1 [facility] Serum or plasma creatinine m easurement (mass/volume)Ordered By: Finn Ferrell on 07-13-2023 Creatinine [Mass/Vol] 1.72 mg/dL 0.70-1.30 [facility] Comment on above: The validity of the calculated GFR & GFRAA in patients over 70 years has not been determined. Clinical correlation is essential. Serum or plasma urea nitroge n measurement (mass/volume)Ordered By: Finn Ferrell on 07-13-2023 Urea nitrogen [Mass/Vol] 25 mg/dL 7-18 [facility] Squamous epithelial cells de tection in urine sediment by light microscopyOrdered By: Finn Ferrell on 07-13-2023 Epithelial cells.squamous LM Ql (Urine sed) 0 SEEN /hpf 0-5 [facility] Thin prep Papanicolaou smear with manual screeningOrdered By: Finn Ferrell on 07-13-2023 Protein (U) [Mass/Vol] 9.6 mg/dL 0.0-11.8 [facility] Thin prep Papanicolaou smear with manual screening 3.7 g/dL 3.2-5.0 [facility] Thin prep Papanicolaou smear with manual screening 15 U/L 15-37 [facility] Thin prep Papanicolaou smear with manual screening 7 5-15 [facility] Urine blood detectionOrdered By: Finn Ferrell on 07-13-2023 RBC Ql (U) Negative Negative [facility] Urine clarityOrdered By: Benedicto Ferrell on 07-13-2023 Clarity (U) Clear Clear [facility] Urine color determinationOrd ered By: Finn Ferrell on 07-13-2023 Color (U) Yellow Yellow [facility] Urine creatinine measurement (mass/volume)Ordered By: Finn Ferrell on 07-13-2023 Creatinine (U) [Mass/Vol] 127.00 mg/dL NO RANGE EST. [facility] Urine glucose detectionOrder ed By: Finn Ferrell on 07-13-2023 Glucose Ql (U) Normal mg/dl Normal [facility] Urine leukocyte esterase det ection by dipstickOrdered By: Finn Ferrell on 07-13-2023 Leukocyte esterase Test strip Ql (U) 25 /ul Negative [facility] Urine pHOrdered By: Finn mccollum on 07-13-2023 pH (U) 5.0 [pH] 5.0 - 8.0 [facility] Urine protein/creatinine mas s ratioOrdered By: Finn Ferrell on 07-13-2023 Protein/Creatinine (U) [Mass ratio] 76 mg/g CRE 0-200 [facility] Urine sediment bacteria coun t by microscopy (number/high power field)Ordered By: Finn Ferrell on 07-13-2023 Bacteria LM.HPF (Urine sed) [#/Area] 0 /[HPF] None Seen [facility] Urine specific gravity measu rementOrdered By: Finn Ferrell on 07-13-2023 Specific gravity (U) [Rel density] 1.020 1.002-1.03 0 [facility] Urine urobilinogen measureme ntOrdered By: Finn Ferrell on 07-13-2023 Urobilinogen Ql (U) Normal mg/dl Normal [facility] Absolute lymphocyte countOrd ered By: Reynaldo Gaviria on 07-05-2023 Lymphocytes Auto (Unsp spec) [#/Vol] 1.18 10*3/uL 0.83-4.51 [facility] Automated lymphocyte count a s percentage of total leukocytesOrdered By: Reynaldo Gaviria on 07-05-2023 Lymphocytes/100 WBC Auto (Unsp spec) 15.2 % 19-41 [facility] Basophil percentageOrdered B y: Reynaldo Gaviria on 07-05-2023 Basophil percentage 0 SEEN /hpf 0-5 [facility] Basophils/100 WBC (Bld) 0.6 % 0-1 [facility] Bilirubin [Mass/Vol] 1.00 mg/dL 0.20-1.00 [facility] Comment on above: For patients on eltr ombopag therapy, use of Dimension [place] TBIL is not recommended. Chloride [Moles/Vol] 112 mmol/L 98-107 [facility] Eosinophils/100 WBC (Bld) 1.4 % 0-5 [facility] Glucose [Mass/Vol] 121 mg/dL 74-106 [facility] Comment on above: Fasting Glucose resu lt from 100 to 125 mg/dL suggests IMPAIRED HOMEOSTASIS per A.D.A. criteria. Hemoglobin (Bld) [Mass/Vol] 12.9 g/dL 13.0-16.5 [facility] Monocytes/100 WBC (Bld) 7.1 % 0-10 [facility] Neutrophils (Bld) [#/Vol] 5.8 10*3/uL 2.0-7.7 [facility] Neutrophils/100 WBC (Bld) 74.9 % 47-70 [facility] Potassium [Moles/Vol] 4.6 mmol/L 3.5-5.1 [facility] Protein [Mass/Vol] 7.6 g/dL 6.4-8.2 [facility] Sodium [Moles/Vol] 142 mmol/L 136-145 [facility] WBC (Bld) [#/Vol] 7.8 10*3/uL 4.4-11.0 [facility] Bilirubin Test strip Ql (U)O rdered By: Reynaldo Gaviria on 07-05-2023 Bilirubin Ql (U) Negative Negative [facility] Determination of erythrocyte mean corpuscular volume (MCV)Ordered By: Reynaldo Gaviria on 07-05-2023 MCV (RBC) [Entitic vol] 90.6 fL 80-94 [facility] Erythrocyte distribution wid th ratioOrdered By: Reynaldo Gaviria on 07-05-2023 Erythrocyte distribution width (RBC) [Ratio] 14.6 % 11.6-14.6 [facility] Erythrocyte distribution wid th standard deviationOrdered By: Reynaldo Gaviria on 07-05-2023 Erythrocyte distribution width (RBC) [Entitic vol] 47.9 fL 35.1-43.9 [facility] Hematocrit Auto (Bld) [Volum e fraction]Ordered By: Reynaldo Gaviria on 07-05-2023 Hematocrit (Bld) [Volume fraction] 40.3 % 40-54 [facility] Immature granulocytes/100 WB C Auto (Bld)Ordered By: Reynaldo Gaviria on 07-05-2023 Immature granulocytes/100 WBC (Bld) 0.800 % 0.0-0.9 [facility] Comment on above: IG% - Immature Granu locytes (promyelocytes, myelocytes and metamyelocytes) > 1% indicates that a LEFT SHIFT is Present. Ketones Test strip Ql (U)Ord ered By: Reynaldo Gaviria on 07-05-2023 Ketones Ql (U) Negative Negative [facility] - Chemistry and C hemistry - challengeOrdered By: Reynaldo Gaviria on 07-05-2023 Albumin/Globulin [Mass ratio] 0.9 {ratio} 0.9-2.4 [facility] ALP [Catalytic activity/Vol] 97 U/L 45-117 [facility] ALT [Catalytic activity/Vol] 28 U/L 16-61 [facility] CO2 [Moles/Vol] 25.0 mmol/L 21.0-32.0 [facility] Globulin (S) [Mass/Vol] 3.9 g/dL 2.2-4.2 [facility] Lipase [Catalytic activity/Vol] 53 U/L 13-75 [facility] Comment on above: Please note:LIPASE r evised reference range effective 22. New Lipase methodology. Expected to produce lower values than the previous assay method. NEW Reference Range: 13 - 75 U/L Urea nitrogen/Creatinine [Mass ratio] 21.3 mg/mg 10-20 [facility] - Hematology and Cell countsOrdered By: Reynaldo Gaviria on 07-05-2023 MCH (RBC) [Entitic mass] 29.0 pg 27.0-32.0 [facility] MCHC (RBC) [Mass/Vol] 32.0 g/dL 32-36 [facility] Nucleated RBC/100 WBC (Bld) [Ratio] 0 % 0-5 [facility] Platelet mean volume (Bld) [Entitic vol] 9.8 fL 6.2-12.0 [facility] Platelets (Bld) [#/Vol] 238 10*3/uL 150-450 [facility] Mucus LM Ql (Urine sed)Order ed By: Reynaldo Gaviria on 07-05-2023 Mucus Ql (Urine sed) 0 SEEN /hpf [facility] Nitrite Test strip Ql (U)Ord ered By: Reynaldo Gaviria on 07-05-2023 Nitrite Ql (U) Negative Negative [facility] No Panel InformationOrdered By: Reynaldo Gaviria on 07-05-2023 Urine RBC 0 SEEN /hpf 0-5 [facility] Estimated Creatinine Clearance Calc 61.91 ml/min [facility] Estimated GFR (MDRD) Amer 51 mL/min >60 [facility] Comment on above: GFR Calc Estimated GFR (MDRD) Non-Af Amer 42 mL/min >60 [facility] Comment on above: Non- GFR Calc Protein Test strip Ql (U)Ord ered By: Reynaldo Gaviria on 07-05-2023 Protein Ql (U) Negative Negative [facility] RBC Auto (Bld) [#/Vol]Ordere d By: Reynaldo Gaviria on 07-05-2023 RBC (Bld) [#/Vol] 4.45 10*6/uL 4.6-6.2 [facility] Serum or plasma calcium renu urement (mass/volume)Ordered By: Reynaldo Gaviria on 07-05-2023 Calcium [Mass/Vol] 9.2 mg/dL 8.5-10.1 [facility] Serum or plasma creatinine m easurement (mass/volume)Ordered By: Reynaldo Gaviria on 07-05-2023 Creatinine [Mass/Vol] 1.74 mg/dL 0.70-1.30 [facility] Comment on above: The validity of the calculated GFR & GFRAA in patients over 70 years has not been determined. Clinical correlation is essential. Serum or plasma urea nitroge n measurement (mass/volume)Ordered By: Reynaldo Gaviria on 07-05-2023 Urea nitrogen [Mass/Vol] 37 mg/dL 7-18 [facility] Squamous epithelial cells de tection in urine sediment by light microscopyOrdered By: Reynaldo Gaviria on 07-05-2023 Epithelial cells.squamous LM Ql (Urine sed) 0 SEEN /hpf 0-5 [facility] Thin prep Papanicolaou smear with manual screeningOrdered By: Reynaldo Gaviria on 07-05-2023 Thin prep Papanicolaou smear with manual screening 3.7 g/dL 3.2-5.0 [facility] Thin prep Papanicolaou smear with manual screening 9 U/L 15-37 [facility] Thin prep Papanicolaou smear with manual screening 5 5-15 [facility] Urine blood detectionOrdered By: Reynaldo Gaviria on 07-05-2023 RBC Ql (U) Negative Negative [facility] Urine clarityOrdered By: Lobito Gaviria on 07-05-2023 Clarity (U) Clear Clear [facility] Urine color determinationOrd ered By: Reynaldo Gaviria on 07-05-2023 Color (U) Yellow Yellow [facility] Urine glucose detectionOrder ed By: Reynaldo Gaviria on 07-05-2023 Glucose Ql (U) Normal mg/dl Normal [facility] Urine leukocyte esterase det ection by dipstickOrdered By: Reynaldo Gaviria on 07-05-2023 Leukocyte esterase Test strip Ql (U) Negative Negative [facility] Urine pHOrdered By: Reynaldo gonzalez on 07-05-2023 pH (U) 6.0 [pH] 5.0 - 8.0 [facility] Urine sediment bacteria coun t by microscopy (number/high power field)Ordered By: Reynaldo Gaviria on 07-05-2023 Bacteria LM.HPF (Urine sed) [#/Area] 0 /[HPF] None Seen [facility] Urine specific gravity measu rementOrdered By: Reynaldo Gaviria on 07-05-2023 Specific gravity (U) [Rel density] 1.015 1.002-1.03 0 [facility] Urine urobilinogen measureme ntOrdered By: Reynaldo Gaviria on 07-05-2023 Urobilinogen Ql (U) Normal mg/dl Normal [facility] Basophil percentageon 2022 Chloride [Moles/Vol] 112 mmol/L 98-107 [facility] Glucose [Mass/Vol] 116 mg/dL 74-106 [facility] Comment on above: Fasting Glucose resu lt from 100 to 125 mg/dL suggests IMPAIRED HOMEOSTASIS per A.D.A. criteria. Potassium [Moles/Vol] 4.1 mmol/L 3.5-5.1 [facility] Sodium [Moles/Vol] 142 mmol/L 136-145 [facility] Laboratory - Chemistry and C hemistry - challengeon 04-09-2023 CO2 [Moles/Vol] 28.0 mmol/L 21.0-32.0 [facility] Urea nitrogen/Creatinine [Mass ratio] 16.7 mg/mg 10-20 [facility] No Panel Informationon 04-09 Estimated GFR (MDRD) Amer 60 mL/min >60 [facility] Comment on above: GFR Calc Estimated GFR (MDRD) Non-Af Amer 50 mL/min >60 [facility] Comment on above: Non- GFR Calc Serum or plasma calcium renu urement (mass/volume)on 04-09-2023 Calcium [Mass/Vol] 8.5 mg/dL 8.5-10.1 [facility] Serum or plasma creatinine m easurement (mass/volume)on 04-09-2023 Creatinine [Mass/Vol] 1.50 mg/dL 0.70-1.30 [facility] Comment on above: The validity of the calculated GFR & GFRAA in patients over 70 years has not been determined. Clinical correlation is essential. Serum or plasma urea nitroge n measurement (mass/volume)on 04-09-2023 Urea nitrogen [Mass/Vol] 25 mg/dL 7-18 [facility] Thin prep Papanicolaou smear with manual screeningon 04-09-2023 Thin prep Papanicolaou smear with manual screening 2 5-15 [facility] Absolute lymphocyte countOrd ered By: Finn Ferrell on 03-24-2023 Lymphocytes Auto (Unsp spec) [#/Vol] 1.31 10*3/uL 0.83-4.51 [facility] Basophil percentageOrdered B y: Finn Ferrell on 03-24-2023 Basophil percentage 0 SEEN /hpf 0-5 [facility] Basophil percentage 2.4 mg/dL 2.5-4.9 [facility] Basophils/100 WBC (Bld) 0.5 % 0-1 [facility] Bilirubin [Mass/Vol] 0.80 mg/dL 0.20-1.00 [facility] Comment on above: For patients on eltr ombopag therapy, use of Dimension [place] TBIL is not recommended. Chloride [Moles/Vol] 109 mmol/L 98-107 [facility] Cholesterol [Mass/Vol] 131 mg/dL <200 [facility] Comment on above: <200 mg/dL Desirable 200-240 mg/dL Borderline >240 mg/dL High Risk Eosinophils/100 WBC (Bld) 1.2 % 0-5 [facility] Glucose [Mass/Vol] 84 mg/dL 74-106 [facility] Neutrophils (Bld) [#/Vol] 5.4 10*3/uL 2.0-7.7 [facility] [facility] Neutrophils/100 WBC (Bld) 73.4 % 47-70 [facility] Potassium [Moles/Vol] 3.7 mmol/L 3.5-5.1 [facility] Protein [Mass/Vol] 7.2 g/dL 6.4-8.2 [facility] Sodium [Moles/Vol] 140 mmol/L 136-145 [facility] Triglyceride [Mass/Vol] 226 mg/dL <199 [facility] Comment on above: The drugs N-Acetylcy steine and Metamizole may falsely depress this assay.Serum Triglycerides Reference Interval Normal <150 mg/dL Borderline high 150 - 199 mg/dL High 200 - 499 mg/dL Very High > or = 500 mg/dL WBC (Bld) [#/Vol] 7.4 10*3/uL 4.4-11.0 [facility] Bilirubin Test strip Ql (U)O rdered By: Finn Ferrell on 03-24-2023 Bilirubin Ql (U) Negative Negative [facility] Blood erythrocytes count (nu mber/volume)Ordered By: Finn Ferrell on 03-24-2023 RBC (Bld) [#/Vol] 4.16 10*6/uL 4.6-6.2 [facility] Blood hemoglobin measurement (mass/volume)Ordered By: Finn Ferrell on 03-24-2023 Hemoglobin (Bld) [Mass/Vol] 12.1 g/dL 13.0-16.5 [facility] Blood lymphocytes/100 leukoc ytesOrdered By: Finn Ferrell on 03-24-2023 Lymphocytes/100 WBC (Bld) 17.8 % 19-41 [facility] Blood monocytes/100 leukocyt esOrdered By: Finn Ferrell on 03-24-2023 Monocytes/100 WBC (Bld) 6.6 % 0-10 [facility] Blood platelet mean volumeOr dered By: Finn Ferrell on 03-24-2023 Platelet mean volume (Bld) [Entitic vol] 9.6 fL 6.2-12.0 [facility] Determination of erythrocyte mean corpuscular volume (MCV)Ordered By: Finn Ferrell on 03-24-2023 MCV (RBC) [Entitic vol] 92.5 fL 80-94 [facility] Hematocrit Auto (Bld) [Volum e fraction]Ordered By: Finn Ferrell on 03-24-2023 Hematocrit (Bld) [Volume fraction] 38.5 % 40-54 [facility] Iron measurement (mass/mass) Ordered By: Finn Ferrell on 03-24-2023 Iron (Unsp spec) [Mass/Mass] 56 ug/dL 65-175 [facility] Ketones Test strip Ql (U)Ord ered By: Finn Ferrell on 03-24-2023 Ketones Ql (U) Negative Negative [facility] Laboratory - Chemistry and C hemistry - challengeOrdered By: Finn Ferrell on 03-24-2023 ALP [Catalytic activity/Vol] 88 U/L 45-117 [facility] ALT [Catalytic activity/Vol] 28 U/L 16-61 [facility] CO2 [Moles/Vol] 26.0 mmol/L 21.0-32.0 [facility] Cobalamin (Vitamin B12) [Mass/Vol] 304 pg/mL 211-911 [facility] Globulin (S) [Mass/Vol] 3.8 g/dL 2.2-4.2 [facility] Urea nitrogen/Creatinine [Mass ratio] 14.7 mg/mg 10-20 [facility] Laboratory - Hematology and Cell countsOrdered By: Finn Ferrell on 03-24-2023 Erythrocyte distribution width (RBC) [Entitic vol] 45.4 fL 35.1-43.9 [facility] Erythrocyte distribution width (RBC) [Ratio] 13.4 % 11.6-14.6 [facility] Immature granulocytes/100 WBC (Bld) 0.500 % 0.0-0.9 [facility] Comment on above: IG% - Immature Granu locytes (promyelocytes, myelocytes and metamyelocytes) > 1% indicates that a LEFT SHIFT is Present. MCH (RBC) [Entitic mass] 29.1 pg 27.0-32.0 [facility] Nucleated RBC/100 WBC (Bld) [Ratio] 0 % 0-5 [facility] MCHC Auto (RBC) [Mass/Vol]Or dered By: Finn Ferrell on 03-24-2023 MCHC (RBC) [Mass/Vol] 31.4 g/dL 32-36 [facility] Mucus LM Ql (Urine sed)Order ed By: Finn Ferrell on 03-24-2023 Mucus Ql (Urine sed) 0 SEEN /hpf [facility] Nitrite Test strip Ql (U)Ord ered By: Finn Ferrell on 03-24-2023 Nitrite Ql (U) Negative Negative [facility] No Panel InformationOrdered By: Finn Ferrell on 03-24-2023 Estimated GFR (MDRD) Amer 67 mL/min >60 [facility] Comment on above: GFR Calc Estimated GFR (MDRD) Non-Af Amer 56 mL/min >60 [facility] Comment on above: Non- GFR Calc Parathyroid Hormone (Intact) 54.0 pg/mL 18.4-80.1 [facility] Total Iron Binding Capacity 277 ug/dL 250-450 [facility] Vitamin D 25-Hydroxy 55.9 ng/mL [facility] Comment on above: Vitamin D 25(OH) Sta tus Range Deficiency <20 ng/mL (50nmol/L) Insufficiency 20 - 30 ng/mL (50 - 75 nmol/L) Sufficiency 30 - 100 ng/mL (75 - 250 nmol/L) Toxicity >100 ng/mL (>250 nmol/L) Platelets bldOrdered By: Benedicto Ferrell on 03-24-2023 Platelets (Bld) [#/Vol] 254 10*3/uL 150-450 [facility] Protein Test strip Ql (U)Ord ered By: Finn Ferrell on 03-24-2023 Protein Ql (U) Negative Negative [facility] Serum or plasma albumin renu urement (mass/volume)Ordered By: Finn Ferrell on 03-24-2023 Albumin [Mass/Vol] 3.4 g/dL 3.2-5.0 [facility] Serum or plasma albumin/glob ulin mass ratioOrdered By: Finn Ferrell on 03-24-2023 Albumin/Globulin [Mass ratio] 0.9 {ratio} 0.9-2.4 [facility] Serum or plasma calcium renu urement (mass/volume)Ordered By: Finn Ferrell on 03-24-2023 Calcium [Mass/Vol] 8.6 mg/dL 8.5-10.1 [facility] Serum or plasma cholesterol in HDL measurement (mass/volume)Ordered By: Finn Ferrell on 03-24-2023 Cholesterol in HDL [Mass/Vol] 47 mg/dL >40 [facility] Comment on above: The drugs N-Acetylcy steine and Metamizole may falsely depress this assay. Reference Range HDL <40 mg/dL Low HDL Cholesterol HDL >or= 60 mg/dL High HDL Cholesterol Serum or plasma cholesterol in VLDL measurement (mass/volume)Ordered By: Finn Ferrell on 03-24-2023 Cholesterol in VLDL [Mass/Vol] 45 mg/dL 5-40 [facility] Serum or plasma creatinine m easurement (mass/volume)Ordered By: Finn Ferrell on 03-24-2023 Creatinine [Mass/Vol] 1.36 mg/dL 0.70-1.30 [facility] Comment on above: The validity of the calculated GFR & GFRAA in patients over 70 years has not been determined. Clinical correlation is essential. Serum or plasma ferritin ellen surement (mass/volume)Ordered By: Finn Ferrell on 03-24-2023 Ferritin [Mass/Vol] 254 ng/mL 26-388 [facility] Serum or plasma folate measu rement (mass/volume)Ordered By: Finn Ferrell on 03-24-2023 Folate [Mass/Vol] 7.50 ng/mL 3.1-55.4 [facility] Serum or plasma low density lipoprotein (LDL) cholesterol measurement (mass/volume)Ordered By: Finn Ferrell on 03-24-2023 Cholesterol in LDL [Mass/Vol] 39 mg/dL 0-130 [facility] Serum or plasma urea nitroge n measurement (mass/volume)Ordered By: Finn Ferrell on 03-24-2023 Urea nitrogen [Mass/Vol] 20 mg/dL 7-18 [facility] Squamous epithelial cells de tection in urine sediment by light microscopyOrdered By: Finn Ferrell on 03-24-2023 Epithelial cells.squamous LM Ql (Urine sed) 0 SEEN /hpf 0-5 [facility] Thin prep Papanicolaou smear with manual screeningOrdered By: Finn Ferrell on 03-24-2023 Thin prep Papanicolaou smear with manual screening 13 U/L 15-37 [facility] Thin prep Papanicolaou smear with manual screening 5 5-15 [facility] Urine blood detectionOrdered By: Finn Ferrell on 03-24-2023 RBC Ql (U) Negative Negative [facility] RBC Ql (U) 0 SEEN /hpf 0-5 [facility] Urine clarityOrdered By: Benedicto Ferrell on 03-24-2023 Clarity (U) Clear Clear [facility] Urine color determinationOrd ered By: Finn Ferrell on 03-24-2023 Color (U) Yellow Yellow [facility] Urine glucose detectionOrder ed By: Finn Ferrell on 03-24-2023 Glucose Ql (U) Normal mg/dl Normal [facility] Urine leukocyte esterase det ection by dipstickOrdered By: Finn Ferrell on 03-24-2023 Leukocyte esterase Test strip Ql (U) Negative Negative [facility] Urine pHOrdered By: Finn mccollum on 03-24-2023 pH (U) 6.0 [pH] 5.0 - 8.0 [facility] Urine sediment bacteria coun t by microscopy (number/high power field)Ordered By: Finn Ferrell on 03-24-2023 Bacteria LM.HPF (Urine sed) [#/Area] 0 /[HPF] None Seen [facility] Urine specific gravity measu rementOrdered By: Finn Ferrell on 03-24-2023 Specific gravity (U) [Rel density] 1.015 1.002-1.03 0 [facility] Urobilinogen Auto test strip Ql (U)Ordered By: Finn Ferrell on 03-24-2023 Urobilinogen Ql (U) Normal mg/dl Normal [facility] Cardiac catheterization stud yon 03-01-2023 Impression: [employer]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 6 Turkish sheath was advanced into the right radial artery using modified Seldinger technique. Verapamil was administered through the sheath. Patient was anticoagulated with IV heparin. Left and right coronary angiograms were performed with 6 Turkish 3.5 EBU & a 5 Turkish JR4 catheters respectively. 5 Turkish Pig tail catheter was advanced across the [...] stenosed. 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 The lesion was previously treated using a [...] PAF on Eliquis who presents for outpatient [facility] given angina with known CAD. Hemodynamics Interpretation LVEDP: 22 mmHg No significant aortic gradient Cath Recommendations Patient management should include: Aggressive medical management and continue with current meds. Will medically manage angina [place] The following segments are akinetic: basilar inferior. The following segments are normal: mid anterior, mid inferior, basilar anterior, apical anterior and apical inferior. CV CPACS [facility] ECG 12 lead - CLINIC PERFORM EDon 02-23-2023 Sinus Rhythm ABNORMAL Inferior myocardial infarction [facility] Basophil percentageon 2022 Bilirubin [Mass/Vol] 0.90 mg/dL 0.20-1.00 [facility] Comment on above: For patients on eltr ombopag therapy, use of Dimension [place] TBIL is not recommended. Chloride [Moles/Vol] 111 mmol/L 98-107 [facility] Cholesterol [Mass/Vol] 135 mg/dL <200 [facility] Comment on above: <200 mg/dL Desirable 200-240 mg/dL Borderline >240 mg/dL High Risk Glucose [Mass/Vol] 153 mg/dL 74-106 [facility] Comment on above: Fasting Glucose resu lt greater than or equal to 126 mg/dL suggests DIABETES MELLITUS per A.D.A. criteria. Potassium [Moles/Vol] 3.9 mmol/L 3.5-5.1 [facility] Protein [Mass/Vol] 7.3 g/dL 6.4-8.2 [facility] Sodium [Moles/Vol] 142 mmol/L 136-145 [facility] Triglyceride [Mass/Vol] 190 mg/dL <199 [facility] Comment on above: The drugs N-Acetylcy steine and Metamizole may falsely depress this assay.Serum Triglycerides Reference Interval Normal <150 mg/dL Borderline high 150 - 199 mg/dL High 200 - 499 mg/dL Very High > or = 500 mg/dL Laboratory - Chemistry and C hemistry - challengeon 02-19-2023 ALP [Catalytic activity/Vol] 95 U/L 45-117 [facility] ALT [Catalytic activity/Vol] 34 U/L 16-61 [facility] CO2 [Moles/Vol] 27.0 mmol/L 21.0-32.0 [facility] Globulin (S) [Mass/Vol] 3.7 g/dL 2.2-4.2 [facility] Urea nitrogen/Creatinine [Mass ratio] 11.4 mg/mg 10-20 [facility] No Panel Informationon 02-19 Estimated GFR (MDRD) Amer 57 mL/min >60 [facility] Comment on above: GFR Calc Estimated GFR (MDRD) Non-Af Amer 47 mL/min >60 [facility] Comment on above: Non- GFR Calc Serum or plasma albumin renu urement (mass/volume)on 02-19-2023 Albumin [Mass/Vol] 3.6 g/dL 3.2-5.0 [facility] Serum or plasma albumin/glob ulin mass ratioon 02-19-2023 Albumin/Globulin [Mass ratio] 1.0 {ratio} 0.9-2.4 [facility] Serum or plasma calcium renu urement (mass/volume)on 02-19-2023 Calcium [Mass/Vol] 8.6 mg/dL 8.5-10.1 [facility] Serum or plasma cholesterol in HDL measurement (mass/volume)on 02-19-2023 Cholesterol in HDL [Mass/Vol] 47 mg/dL >40 [facility] Comment on above: The drugs N-Acetylcy steine and Metamizole may falsely depress this assay. Reference Range HDL <40 mg/dL Low HDL Cholesterol HDL >or= 60 mg/dL High HDL Cholesterol Serum or plasma cholesterol in VLDL measurement (mass/volume)on 02-19-2023 Cholesterol in VLDL [Mass/Vol] 38 mg/dL 5-40 [facility] Serum or plasma creatinine m easurement (mass/volume)on 02-19-2023 Creatinine [Mass/Vol] 1.58 mg/dL 0.70-1.30 [facility] Comment on above: The validity of the calculated GFR & GFRAA in patients over 70 years has not been determined. Clinical correlation is essential. Serum or plasma low density lipoprotein (LDL) cholesterol measurement (mass/volume)on 02-19-2023 Cholesterol in LDL [Mass/Vol] 50 mg/dL 0-130 [facility] Serum or plasma urea nitroge n measurement (mass/volume)on 02-19-2023 Urea nitrogen [Mass/Vol] 18 mg/dL 7-18 [facility] Thin prep Papanicolaou smear with manual screeningon 02-19-2023 Thin prep Papanicolaou smear with manual screening 18 U/L 15-37 [facility] Thin prep Papanicolaou smear with manual screening 4 5-15 [facility] Absolute lymphocyte countOrd ered By: Finn Ferrell on 02-05-2023 Lymphocytes Auto (Unsp spec) [#/Vol] 1.13 10*3/uL 0.83-4.51 [facility] Basophil percentageOrdered B y: Finn Ferrell on 02-05-2023 Basophil percentage 0-5 SEEN /hpf 0-5 [facility] Basophils/100 WBC (Bld) 0.6 % 0-1 [facility] Bilirubin [Mass/Vol] 0.90 mg/dL 0.20-1.00 [facility] Comment on above: For patients on eltr ombopag therapy, use of [place] TBIL is not recommended. Chloride [Moles/Vol] 108 mmol/L 98-107 [facility] Cholesterol [Mass/Vol] 137 mg/dL <200 [facility] Comment on above: <200 mg/dL Desirable 200-240 mg/dL Borderline >240 mg/dL High Risk Eosinophils/100 WBC (Bld) 1.4 % 0-5 [facility] Glucose [Mass/Vol] 109 mg/dL 74-106 [facility] Comment on above: Fasting Glucose resu lt from 100 to 125 mg/dL suggests IMPAIRED HOMEOSTASIS per A.D.A. criteria. Neutrophils (Bld) [#/Vol] 6.1 10*3/uL 2.0-7.7 [facility] Neutrophils/100 WBC (Bld) 76.4 % 47-70 [facility] Potassium [Moles/Vol] 4.6 mmol/L 3.5-5.1 [facility] Protein [Mass/Vol] 7.5 g/dL 6.4-8.2 [facility] Sodium [Moles/Vol] 138 mmol/L 136-145 [facility] Triglyceride [Mass/Vol] 204 mg/dL <199 [facility] Comment on above: The drugs N-Acetylcy steine and Metamizole may falsely depress this assay.Serum Triglycerides Reference Interval Normal <150 mg/dL Borderline high 150 - 199 mg/dL High 200 - 499 mg/dL Very High > or = 500 mg/dL WBC (Bld) [#/Vol] 8.0 10*3/uL 4.4-11.0 [facility] Bilirubin Test strip Ql (U)O rdered By: Finn Ferrell on 02-05-2023 Bilirubin Ql (U) Negative Negative [facility] Blood erythrocytes count (nu mber/volume)Ordered By: Finn Ferrell on 02-05-2023 RBC (Bld) [#/Vol] 3.82 10*6/uL 4.6-6.2 [facility] Blood hemoglobin measurement (mass/volume)Ordered By: iFnn Ferrell on 02-05-2023 Hemoglobin (Bld) [Mass/Vol] 11.5 g/dL 13.0-16.5 [facility] Blood lymphocytes/100 leukoc ytesOrdered By: Finn Ferrell on 02-05-2023 Lymphocytes/100 WBC (Bld) 14.2 % 19-41 [facility] Blood monocytes/100 leukocyt esOrdered By: Finn Ferrell on 02-05-2023 Monocytes/100 WBC (Bld) 6.9 % 0-10 [facility] Blood platelet mean volumeOr dered By: Finn Ferrell on 02-05-2023 Platelet mean volume (Bld) [Entitic vol] 9.4 fL 6.2-12.0 [facility] Determination of erythrocyte mean corpuscular volume (MCV)Ordered By: Finn Ferrell on 02-05-2023 MCV (RBC) [Entitic vol] 94.0 fL 80-94 [facility] Hematocrit Auto (Bld) [Volum e fraction]Ordered By: Finn Ferrell on 02-05-2023 Hematocrit (Bld) [Volume fraction] 35.9 % 40-54 [facility] Iron measurement (mass/mass) Ordered By: Finn Ferrell on 02-05-2023 Iron (Unsp spec) [Mass/Mass] 70 ug/dL 65-175 [facility] Ketones Test strip Ql (U)Ord ered By: Finn Ferrell on 02-05-2023 Ketones Ql (U) Negative Negative [facility] Laboratory - Chemistry and C hemistry - challengeOrdered By: Finn Ferrell on 02-05-2023 ALP [Catalytic activity/Vol] 91 U/L 45-117 [facility] ALT [Catalytic activity/Vol] 30 U/L 16-61 [facility] CO2 [Moles/Vol] 25.0 mmol/L 21.0-32.0 [facility] Cobalamin (Vitamin B12) [Mass/Vol] 359 pg/mL 211-911 [facility] Globulin (S) [Mass/Vol] 3.9 g/dL 2.2-4.2 [facility] Magnesium [Mass/Vol] 2.4 mg/dL 1.6-2.6 [facility] Urea nitrogen/Creatinine [Mass ratio] 21.1 mg/mg 10-20 [facility] Laboratory - Hematology and Cell countsOrdered By: Finn Ferrell on 02-05-2023 Erythrocyte distribution width (RBC) [Entitic vol] 48.9 fL 35.1-43.9 [facility] Erythrocyte distribution width (RBC) [Ratio] 14.3 % 11.6-14.6 [facility] Immature granulocytes/100 WBC (Bld) 0.500 % 0.0-0.9 [facility] Comment on above: IG% - Immature Granu locytes (promyelocytes, myelocytes and metamyelocytes) > 1% indicates that a LEFT SHIFT is Present. MCH (RBC) [Entitic mass] 30.1 pg 27.0-32.0 [facility] Nucleated RBC/100 WBC (Bld) [Ratio] 0 % 0-5 [facility] MCHC Auto (RBC) [Mass/Vol]Or dered By: Finn Ferrell on 02-05-2023 MCHC (RBC) [Mass/Vol] 32.0 g/dL 32-36 [facility] Mucus LM Ql (Urine sed)Order ed By: Finn Ferrell on 02-05-2023 Mucus Ql (Urine sed) 0 SEEN /hpf [facility] Nitrite Test strip Ql (U)Ord ered By: Finn Ferrell on 02-05-2023 Nitrite Ql (U) Negative Negative [facility] No Panel InformationOrdered By: Finn Ferrell on 02-05-2023 Estimated GFR (MDRD) Amer 52 mL/min >60 [facility] Comment on above: GFR Calc Estimated GFR (MDRD) Non-Af Amer 43 mL/min >60 [facility] Comment on above: Non- GFR Calc Total Iron Binding Capacity 296 ug/dL 250-450 [facility] Vitamin D 25-Hydroxy 36.4 ng/mL [facility] Comment on above: Vitamin D 25(OH) Sta tus Range Deficiency <20 ng/mL (50nmol/L) Insufficiency 20 - 30 ng/mL (50 - 75 nmol/L) Sufficiency 30 - 100 ng/mL (75 - 250 nmol/L) Toxicity >100 ng/mL (>250 nmol/L) Platelets bldOrdered By: Benedicto Ferrell on 02-05-2023 Platelets (Bld) [#/Vol] 267 10*3/uL 150-450 [facility] Protein Test strip Ql (U)Ord ered By: Finn Ferrell on 02-05-2023 Protein Ql (U) Negative Negative [facility] Serum or plasma albumin renu urement (mass/volume)Ordered By: Finn Ferrell on 02-05-2023 Albumin [Mass/Vol] 3.6 g/dL 3.2-5.0 [facility] Serum or plasma albumin/glob ulin mass ratioOrdered By: Finn Ferrell on 02-05-2023 Albumin/Globulin [Mass ratio] 0.9 {ratio} 0.9-2.4 [facility] Serum or plasma calcium renu urement (mass/volume)Ordered By: Finn Ferrell on 02-05-2023 Calcium [Mass/Vol] 9.0 mg/dL 8.5-10.1 [facility] Serum or plasma cholesterol in HDL measurement (mass/volume)Ordered By: Finn Ferrell on 02-05-2023 Cholesterol in HDL [Mass/Vol] 48 mg/dL >40 [facility] Comment on above: The drugs N-Acetylcy steine and Metamizole may falsely depress this assay. Reference Range HDL <40 mg/dL Low HDL Cholesterol HDL >or= 60 mg/dL High HDL Cholesterol Serum or plasma cholesterol in VLDL measurement (mass/volume)Ordered By: Finn Ferrell on 02-05-2023 Cholesterol in VLDL [Mass/Vol] 41 mg/dL 5-40 [facility] Serum or plasma creatinine m easurement (mass/volume)Ordered By: Finn Ferrell on 02-05-2023 Creatinine [Mass/Vol] 1.71 mg/dL 0.70-1.30 [facility] Comment on above: The validity of the calculated GFR & GFRAA in patients over 70 years has not been determined. Clinical correlation is essential. Serum or plasma ferritin ellen surement (mass/volume)Ordered By: Finn Ferrell on 02-05-2023 Ferritin [Mass/Vol] 405 ng/mL 26-388 [facility] Serum or plasma folate measu rement (mass/volume)Ordered By: Finn Ferrell on 02-05-2023 Folate [Mass/Vol] 9.20 ng/mL 3.1-55.4 [facility] Serum or plasma low density lipoprotein (LDL) cholesterol measurement (mass/volume)Ordered By: Finn Ferrell on 02-05-2023 Cholesterol in LDL [Mass/Vol] 48 mg/dL 0-130 [facility] Serum or plasma urea nitroge n measurement (mass/volume)Ordered By: Finn Ferrell on 02-05-2023 Urea nitrogen [Mass/Vol] 36 mg/dL 7-18 [facility] Squamous epithelial cells de tection in urine sediment by light microscopyOrdered By: Finn Ferrell on 02-05-2023 Epithelial cells.squamous LM Ql (Urine sed) 0 SEEN /hpf 0-5 [facility] Thin prep Papanicolaou smear with manual screeningOrdered By: Finn Ferrell on 02-05-2023 Thin prep Papanicolaou smear with manual screening 17 U/L 15-37 [facility] Thin prep Papanicolaou smear with manual screening 5 5-15 [facility] Urine blood detectionOrdered By: Finn Ferrell on 02-05-2023 RBC Ql (U) Negative Negative [facility] RBC Ql (U) 0 SEEN /hpf 0-5 [facility] Urine clarityOrdered By: Benedicto Ferrell on 02-05-2023 Clarity (U) Clear Clear [facility] Urine color determinationOrd ered By: Finn Ferrell on 02-05-2023 Color (U) Yellow Yellow [facility] Urine glucose detectionOrder ed By: Finn Ferrell on 02-05-2023 Glucose Ql (U) Normal mg/dl Normal [facility] Urine leukocyte esterase det ection by dipstickOrdered By: Finn Ferrell on 02-05-2023 Leukocyte esterase Test strip Ql (U) 25 /ul Negative [facility] Urine pHOrdered By: Finn mccollum on 02-05-2023 pH (U) 5.0 [pH] 5.0 - 8.0 [facility] Urine sediment bacteria coun t by microscopy (number/high power field)Ordered By: Finn Ferrell on 02-05-2023 Bacteria LM.HPF (Urine sed) [#/Area] 0 /[HPF] None Seen [facility] Urine specific gravity measu rementOrdered By: Finn Ferrell on 02-05-2023 Specific gravity (U) [Rel density] 1.010 1.002-1.03 0 [facility] Urobilinogen Auto test strip Ql (U)Ordered By: Finn Ferrell on 02-05-2023 Urobilinogen Ql (U) Normal mg/dl Normal [facility] Whole blood hemoglobin A1c/t otal hemoglobin ratio (mass fraction)Ordered By: Finn Ferrell on 02-05-2023 HbA1c (Bld) [Mass fraction] 5.3 % 3.8-5.6 [facility] Comment on above: Normal < 5.7 % Predi abetic 5.7 - 6.4 % Diabetic >or= 6.5 % Please note range changes. Absolute lymphocyte counton 01-27-2023 Lymphocytes Auto (Unsp spec) [#/Vol] 1.37 10*3/uL 0.83-4.51 [facility] Basophil percentageon 2022 Basophils/100 WBC (Bld) 0.4 % 0-1 [facility] Chloride [Moles/Vol] 109 mmol/L 98-107 [facility] Eosinophils/100 WBC (Bld) 1.1 % 0-5 [facility] Glucose [Mass/Vol] 135 mg/dL 74-106 [facility] Comment on above: Fasting Glucose resu lt greater than or equal to 126 mg/dL suggests DIABETES MELLITUS per A.D.A. criteria. Neutrophils (Bld) [#/Vol] 6.3 10*3/uL 2.0-7.7 [facility] Neutrophils/100 WBC (Bld) 74.3 % 47-70 [facility] Potassium [Moles/Vol] 4.4 mmol/L 3.5-5.1 [facility] Sodium [Moles/Vol] 140 mmol/L 136-145 [facility] WBC (Bld) [#/Vol] 8.5 10*3/uL 4.4-11.0 [facility] Blood erythrocytes count (nu mber/volume)on 01-27-2023 RBC (Bld) [#/Vol] 3.53 10*6/uL 4.6-6.2 [facility] Blood hemoglobin measurement (mass/volume)on 01-27-2023 Hemoglobin (Bld) [Mass/Vol] 10.9 g/dL 13.0-16.5 [facility] Blood lymphocytes/100 leukoc yteson 01-27-2023 Lymphocytes/100 WBC (Bld) 16.2 % 19-41 [facility] Blood monocytes/100 leukocyt eson 01-27-2023 Monocytes/100 WBC (Bld) 7.6 % 0-10 [facility] Blood platelet mean volumeon 01-27-2023 Platelet mean volume (Bld) [Entitic vol] 9.1 fL 6.2-12.0 [facility] Determination of erythrocyte mean corpuscular volume (MCV)on 01-27-2023 MCV (RBC) [Entitic vol] 91.8 fL 80-94 [facility] Hematocrit Auto (Bld) [Volum e fraction]on 01-27-2023 Hematocrit (Bld) [Volume fraction] 32.4 % 40-54 [facility] Laboratory - Chemistry and C hemistry - challengeon 01-27-2023 CO2 [Moles/Vol] 26.0 mmol/L 21.0-32.0 [facility] Urea nitrogen/Creatinine [Mass ratio] 22.3 mg/mg 10-20 [facility] Laboratory - Hematology and Cell countson 01-27-2023 Erythrocyte distribution width (RBC) [Entitic vol] 48.2 fL 35.1-43.9 [facility] Erythrocyte distribution width (RBC) [Ratio] 14.4 % 11.6-14.6 [facility] Immature granulocytes/100 WBC (Bld) 0.400 % 0.0-0.9 [facility] Comment on above: IG% - Immature Granu locytes (promyelocytes, myelocytes and metamyelocytes) > 1% indicates that a LEFT SHIFT is Present. MCH (RBC) [Entitic mass] 30.9 pg 27.0-32.0 [facility] Nucleated RBC/100 WBC (Bld) [Ratio] 0 % 0-5 [facility] MCHC Auto (RBC) [Mass/Vol]on 01-27-2023 MCHC (RBC) [Mass/Vol] 33.6 g/dL 32-36 [facility] No Panel Informationon 01-27 Estimated GFR (MDRD) Amer 46 mL/min >60 [facility] Comment on above: GFR Calc Estimated GFR (MDRD) Non-Af Amer 38 mL/min >60 [facility] Comment on above: Non- GFR Calc Platelets bldon 01-27-2023 Platelets (Bld) [#/Vol] 228 10*3/uL 150-450 [facility] Serum or plasma calcium renu urement (mass/volume)on 01-27-2023 Calcium [Mass/Vol] 9.0 mg/dL 8.5-10.1 [facility] Serum or plasma creatinine m easurement (mass/volume)on 01-27-2023 Creatinine [Mass/Vol] 1.88 mg/dL 0.70-1.30 [facility] Comment on above: The validity of the calculated GFR & GFRAA in patients over 70 years has not been determined. Clinical correlation is essential. Serum or plasma urea nitroge n measurement (mass/volume)on 01-27-2023 Urea nitrogen [Mass/Vol] 42 mg/dL 7-18 [facility] Thin prep Papanicolaou smear with manual screeningon 01-27-2023 Thin prep Papanicolaou smear with manual screening 5 5-15 [facility] Basic Metabolic Panel ([facility] )on 12-31-2022 Calcium [Mass/Vol] 9.5 mg/dL 8.6 - 10. 3 mg/dL [facility] Chloride [Moles/Vol] 106 mmol/L 98 - 11 0 mmol/L [facility] CO2 [Moles/Vol] 23 mmol/L 20 - 32 mmol/L [facility] Creatinine [Mass/Vol] 1.57 mg/dL High 0.70 - 1.35 mg/dL [facility] GFR/1.73 sq M.predicted among non-blacks MDRD (S/P/Bld) [Vol rate/Area] 48 mL/min/{1.73_m2} Low > OR = 60 mL/min/1.7 3m2 [facility] Glucose [Mass/Vol] 111 mg/dL High 65 - 99 mg/dL [facility] Comment on above: Fasting reference interval For someone without known diabetes, a glucose value between 100 and 125 mg/dL is consistent with prediabetes and should be confirmed with a follow-up test. Interpretation and review of laboratory results Abnormal [facility] Potassium [Moles/Vol] 4.9 mmol/L 3.5 - 5.3 mmol/L [facility] Sodium [Moles/Vol] 138 mmol/L 135 - 146 mmol/L [facility] Urea nitrogen [Mass/Vol] 30 mg/dL High 7 - 25 mg/dL [facility] Urea nitrogen/Creatinine [Mass ratio] 19 mg/mg [facility] Basophil percentageOrdered B y: Cecelia Koehler on 12-14-2022 Chloride [Moles/Vol] 108 mmol/L 98-107 [facility] Glucose [Mass/Vol] 106 mg/dL 74-106 [facility] Comment on above: Fasting Glucose resu lt from 100 to 125 mg/dL suggests IMPAIRED HOMEOSTASIS per A.D.A. criteria. Potassium [Moles/Vol] 4.0 mmol/L 3.5-5.1 [facility] Sodium [Moles/Vol] 140 mmol/L 136-145 [facility] Laboratory - Chemistry and C hemistry - challengeOrdered By: Cecelia Koehler on 12-14-2022 CO2 [Moles/Vol] 27.0 mmol/L 21.0-32.0 [facility] Urea nitrogen/Creatinine [Mass ratio] 17.6 mg/mg 10- [facility] No Panel InformationOrdered By: Cecelia Koehler on 12-14-2022 Estimated GFR (MDRD) Amer 59 mL/min >60 [facility] Comment on above: GFR Calc Estimated GFR (MDRD) Non-Af Amer 49 mL/min >60 [facility] Comment on above: Non- GFR Calc Serum or plasma calcium renu urement (mass/volume)Ordered By: Cecelia Koehler on 12-14-2022 Calcium [Mass/Vol] 9.2 mg/dL 8.5-10.1 [facility] Serum or plasma creatinine m easurement (mass/volume)Ordered By: Cecelia Koehler on 12-14-2022 Creatinine [Mass/Vol] 1.53 mg/dL 0.70-1.30 [facility] Comment on above: The validity of the calculated GFR & GFRAA in patients over 70 years has not been determined. Clinical correlation is essential. Serum or plasma urea nitroge n measurement (mass/volume)Ordered By: Cecelia Koehler on 12-14-2022 Urea nitrogen [Mass/Vol] 27 mg/dL 12-08 [facility] Thin prep Papanicolaou smear with manual screeningOrdered By: Cecelia Koehler on 12-14-2022 Thin prep Papanicolaou smear with manual screening 10-05 [facility] Basic metabolic 1998 panelon 12-08-2022 Anion gap [Moles/Vol] 8 mmol/L 3 - 13 mmol/L [facility] Calcium [Mass/Vol] 8.5 mg/dL 8.4 - 10. 4 mg/dL [facility] Chloride [Moles/Vol] 106 mmol/L 98 - 10 7 mmol/L [facility] CO2 [Moles/Vol] 19 mmol/L Low 22 - 30 mmol/L [facility] Creatinine [Mass/Vol] 1.65 mg/dL High 0.66 - 1.25 mg/dL [facility] GFR/1.73 sq M.predicted MDRD (S/P/Bld) [Vol rate/Area] 45.2 mL/min/{1.73_m2} Low - PINF [facility] Comment on above: Calculation based on the Chronic Kidney Disease Epidemiology Collaboration (CKD-EPI) equation refit without adjustment for race Glucose [Mass/Vol] 129 mg/dL High 70 - 100 mg/dL [facility] Potassium [Moles/Vol] 4.5 mmol/L 3.5 - 5.1 mmol/L [facility] Sodium [Moles/Vol] 134 mmol/L Low 135 - 145 mmol/L [facility] Urea nitrogen [Mass/Vol] 38 mg/dL High 9 - 20 mg/dL [facility] CBC panel Auto (Bld)Ordered By: Mallika Santiago on 12-08-2022 Erythrocyte distribution width (RBC) [Ratio] 15.0 % High 11.5 - 14.5 % [facility] Hematocrit (Bld) [Volume fraction] 36.0 % Low 40.0 - 52.0 % [facility] Hemoglobin (Bld) [Mass/Vol] 12.1 g/dL Low 13.0 - 18.0 g/dL [facility] Interpretation and review of laboratory results Abnormal [facility] MCH (RBC) [Entitic mass] 30.0 pg 26.0 - 34.0 pg [facility] MCHC (RBC) [Mass/Vol] 33.7 % 32.0 - 36.0 % [facility] MCV (RBC) [Entitic vol] 89.1 fL 80.0 - 98.0 fL [facility] Platelet mean volume (Bld) [Entitic vol] 7.5 fL 7.4 - 12.4 fL [facility] Platelets (Bld) [#/Vol] 186 10*3/uL 140 - 440 10*3/uL [facility] RBC (Bld) [#/Vol] 4.04 10*6/uL Low 4.40 - 5.90 10*6/uL [facility] WBC (Bld) [#/Vol] 6.9 10*3/uL 3.6 - 10.7 10*3/uL [facility] Laboratory - Chemistry and C hemistry - challengeon 12-08-2022 CRP [Mass/Vol] 26.3 mg/L High NINF - 10.0 mg/L [facility] No Panel Informationon 12-08 Interpretation and review of laboratory results Abnormal [facility] CBC panel Auto (Bld)Ordered By: Gibran Valverde on 12-07-2022 Erythrocyte distribution width (RBC) [Ratio] 15.1 % High 11.5 - 14.5 % [facility] Hematocrit (Bld) [Volume fraction] 34.9 % Low 40.0 - 52.0 % [facility] Hemoglobin (Bld) [Mass/Vol] 11.9 g/dL Low 13.0 - 18.0 g/dL [facility] Interpretation and review of laboratory results Abnormal [facility] MCH (RBC) [Entitic mass] 30.0 pg 26.0 - 34.0 pg [facility] MCHC (RBC) [Mass/Vol] 34.1 % 32.0 - 36.0 % [facility] MCV (RBC) [Entitic vol] 88.2 fL 80.0 - 98.0 fL [facility] Platelet mean volume (Bld) [Entitic vol] 8.0 fL 7.4 - 12.4 fL [facility] Platelets (Bld) [#/Vol] 213 10*3/uL 140 - 440 10*3/uL [facility] RBC (Bld) [#/Vol] 3.95 10*6/uL Low 4.40 - 5.90 10*6/uL [facility] WBC (Bld) [#/Vol] 9.4 10*3/uL 3.6 - 10.7 10*3/uL [facility] Comprehensive metabolic 1998 panelon 12-07-2022 Albumin [Mass/Vol] 3.9 g/dL 3.5 - 5.0 g/dL [facility] ALP [Catalytic activity/Vol] 76 U/L 38 - 126 U/L [facility] ALT [Catalytic activity/Vol] 39 U/L 0 - 49 U/L [facility] Anion gap [Moles/Vol] 7 mmol/L 3 - 13 mmol/L [facility] AST [Catalytic activity/Vol] 30 U/L 15 - 46 U/L [facility] Bilirubin [Mass/Vol] 1.2 mg/dL 0.2 - 1 .3 mg/dL [facility] Calcium [Mass/Vol] 8.6 mg/dL 8.4 - 10. 4 mg/dL [facility] Chloride [Moles/Vol] 106 mmol/L 98 - 10 7 mmol/L [facility] CO2 [Moles/Vol] 24 mmol/L 22 - 30 mmol/L [facility] Creatinine [Mass/Vol] 2.12 mg/dL High 0.66 - 1.25 mg/dL [facility] GFR/1.73 sq M.predicted MDRD (S/P/Bld) [Vol rate/Area] 33.5 mL/min/{1.73_m2} Low - PINF [facility] Comment on above: Calculation based on the Chronic Kidney Disease Epidemiology Collaboration (CKD-EPI) equation refit without adjustment for race Glucose [Mass/Vol] 104 mg/dL High 70 - 100 mg/dL [facility] Potassium [Moles/Vol] 4.8 mmol/L 3.5 - 5.1 mmol/L [facility] Protein [Mass/Vol] 7.2 g/dL 6.3 - 8.2 g/dL [facility] Sodium [Moles/Vol] 137 mmol/L 135 - 145 mmol/L [facility] Urea nitrogen [Mass/Vol] 36 mg/dL High 9 - 20 mg/dL [facility] Creatinine (U) [Mass/Vol]on 12-07-2022 CREATININE, URINE 173.4 mg/dL No Range [facility] Laboratory - Chemistry and C hemistry - challengeon 12-07-2022 Sodium (24H U) [Mass/Vol] 22 mmol/L Low 30 - 90 mmol/L [facility] Troponin I.cardiac [Mass/Vol] 0.013 ng/mL 0.000 - 0.034 ng/mL [facility] Laboratory - Urinalysison Protein (U) [Mass/Vol] mg/dL 0 - 1 2 mg/dL [facility] Lipid 1996 panelon 3 Cholesterol [Mass/Vol] 251 mg/dL High NINF - 200 mg/dL [facility] Cholesterol in HDL [Mass/Vol] 37 mg/dL Low 40 - 60 mg/dL [facility] Cholesterol in LDL [Mass/Vol] 169 mg/dL High 0 - <100 [facility] Cholesterol.total/Chol esterol in HDL [Mass ratio] 7 {ratio} [facility] Comment on above: Ref Range: < 3 Low Risk for CHD 3-6 Mod Risk for CHD > 6 High Risk for CHD Triglyceride [Mass/Vol] 227 mg/dL High NINF - 150 mg/dL [facility] No Panel Informationon 12-07 Interpretation and review of laboratory results Abnormal [facility] Interpretation and review of laboratory results Normal [facility] Sinus rhythm 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, old Electronically Signed On 12-07-2022 14:46:10 EDT by Stephan Crawley CV Stephan Jacobs MD - 12/07/2022 IMPRESSION: Sinus rhythm 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, old Electronically Signed On 12-07-2022 14:46:10 EDT by Stephan Crawley [facility] P [place] 35 degrees [facility] DC Interval 174 ms [facility] QRS [place] 25 degrees [facility] Health QRSD Interval 110 ms [facility] QT Interval 385 ms [facility] QTC Interval 445 ms [facility] T Wave [place] 19 degrees [facility] Sinus rhythm Inferior infarct, old Electronically Signed On 12-07-2022 11:24:10 EDT by Stephan Crawley CV Stephan Jacobs MD - 12/07/2022 IMPRESSION: Sinus rhythm Inferior infarct, old Electronically Signed On 12-07-2022 11:24:10 EDT by Stephan Crawley [facility] Interpretation and review of laboratory results Abnormal [facility] No Panel InformationOrdered By: Stephan Crawley on 12-07-2022 P [place] 33 degrees [facility]: DC Interval 181 ms [facility] Work Phone: QRS [place] 6 degrees [facility] Work Phone: QRSD Interval 116 ms [facility] Work Phone: QT Interval 389 ms [facility] Work Phone: QTC Interval 457 ms [facility] Work Phone: T Wave [place] 159 degrees [facility] Work Phone: [facility] Work Phone: Respiratory pathogens DNA an d RNA panel HARIKA+probe (Nph)on 12-07-2022 Adenovirus Not detected Not Detected [facility] B. pertussis DNA HARIKA+probe Ql (Unsp spec) Not detected Not Detected [facility] Bordetella parapertussis Not detected Not Detected [facility] Chlamydia pneumoniae Not detected Not Detected [facility] Coronavirus 229E Not detected Not Detected [facility] Coronavirus HKU1 Not detected Not Detected [facility] Coronavirus NL63 Not detected Not Detected [facility] Coronavirus OC43 Not detected Not Detected [facility] FLUAV RNA HARIKA+non-probe Ql (Nph) Not detected Not Detected [facility] FLUBV RNA HARIKA+non-probe Ql (Nph) Not detected Not Detected [facility] Human Metapneumovirus Not detected Not Detected [facility] Human Rhinovirus/Enterovirus Not detected Not Detected [facility] Interpretation and review of laboratory results Abnormal [facility] Mycoplasma pneumoniae Not detected Not Detected [facility] Parainfluenza 1 Not detected Not Detected [facility] Parainfluenza 2 Not detected Not Detected [facility] Parainfluenza 3 Not detected Not Detected [facility] Parainfluenza 4 Not detected Not Detected [facility] Respiratory Syncytial Virus Not detected Not Detected [facility] SARS-CoV-2 (COVID-19) RNA HARIKA+non-probe Ql (Nph) Detected Abnormal Not Detected [facility] Methodology: Multiplex PCR [facility] Troponin I.cardiac [Mass/Vol ]on 12-07-2022 Interpretation and review of laboratory results Normal [facility] Patients with high l evels of Biotin oral intake (ie >5 mg/day) may have falsely decreased Troponin levels. [facility] US Retroperitoneum limitedon 12-07-2022 Nonspecific mild cindy ateral perinephric edema. Benign appearing bilateral renal cortical cysts. Report Dictated on Electronically Signed By: Ryanne Oglesby MD Electronically Signed Date/Time: 12/07/2022 10:41 AM T [facility] 1955 [id number] Exam Date/Time: 12/07/2022 10:04 Procedure: US RETROPERITONEUM [...] cyst. Bladder is nondistended, limiting evaluation. [facility] Ryanne Oglesby M D - 12/07/2022 Patient Name: SHANNON [facility]LSON : 1955 [id number] Exam Date/Time: 12/07/2022 10:04 Procedure: US RETROPERITONEUM [...] Electronically Signed Date/Time: 12/07/2022 10:41 AM EDT [facility] Radiology Study observation (narrative) [facility] US Retroperitoneum limitedOr dered By: Ryanne Oglesby on 12-07-2022 [employer] Work Phone: Urinalysis complete panel (U )on 12-07-2022 Bilirubin Ql (U) Negative Negative mg/dL [facility] Clarity (U) Clear Clear [facility] Color (U) Light Yellow Lt. Yellow [facility] Glucose Ql (U) Normal Normal (<70) mg/dL [facility] Hemoglobin Ql (U) Negative Negative mg/dL [facility] Interpretation and review of laboratory results Normal [facility] Ketones (U) [Mass/Vol] Negative Negat lorraine mg/dL [facility] Leukocyte esterase Test strip Ql (U) Negative Negative Nevin/uL [facility] Nitrite Ql (U) Negative Negative [facility] pH (U) 5.0 [pH] 5.0 - 8.0 pH [facility] Protein (U) [Mass/Vol] Negative Negat lorraine mg/dL [facility] Specific gravity (U) [Rel density] 1.015 1.005 - 1.030 [facility] Urobilinogen (U) [Mass/Vol] Normal Normal (0-1) mg/dL [facility] Vital signsOrdered By: Alanna Crawley on 12-07-2022 Heart rate 83 /min bpm [facility] Work Phone: Vital signson 12-07-2022 Heart rate 80 /min bpm [facility] XR Chest Single viewon 12-07 1. No focal infiltra bismark. 2. Prominence of the interstitium and central pulmonary vasculature consistent with mild congestive heart failure/fluid overload. Report Dictated on Electronically Signed By: Coy Rojas MD Electronically Signed Date/Time: 12/07/2022 11:30 AM [facility] Patient Name: SHANNON OLSON : 1955 [id number] Exam Date/Time: 12/07/2022 08:42 Procedure: XR CHEST [...] A right shoulder arthroplasty is noted. [facility] Coy Rojas MD - 12/07/2022 Patient Name: SHANNON OLSON : 1955 [id number] Exam Date/Time: 12/07/2022 08:42 Procedure: XR CHEST [...] Electronically Signed Date/Time: 12/07/2022 11:30 AM EDT [facility] Radiology Study observation (narrative) [employer] XR Chest Single viewOrdered By: Coy Rojas on 12-07-2022 [employer] Work Phone: Laboratory - Chemistry and C hemistry - challengeon 12-06-2022 Troponin I.cardiac [Mass/Vol] ng/mL 0.000 - 0.034 ng/mL [facility] No Panel InformationOrdered By: Kraig Bautista on 12-06-2022 Troponin I High Sensitivity 175 pg/mL 3.0-78.0 [facility] Comment on above: Critical Result(s) C alled at: 01:54:47 12/06/2022 by: MANUEL Lancaster RN ER. Results read back by same. Please Note: New Test Units and Gender Specific Reference Ranges. For more information see Policy Stat Procedure [place] High Sensitivity Troponin (TNIH) and attachments. Troponin I.cardiac [Mass/Vol ]on 12-06-2022 Interpretation and review of laboratory results Normal [facility] Patients with high l evels of Biotin oral intake (ie >5 mg/day) may have falsely decreased Troponin levels. [facility] Absolute lymphocyte countOrd ered By: Kraig Bautista on 12-05-2022 Lymphocytes Auto (Unsp spec) [#/Vol] 0.59 10*3/uL 0.83-4.51 [facility] Basophil percentageOrdered B y: Kraig Bautista on 12-05-2022 Basophils/100 WBC (Bld) 0.2 % 0-1 [facility] Chloride [Moles/Vol] 109 mmol/L 98-107 [facility] Eosinophils/100 WBC (Bld) 0.0 % 0-5 [facility] Glucose [Mass/Vol] 199 mg/dL 74-106 [facility] Comment on above: Fasting Glucose resu lt greater than or equal to 126 mg/dL suggests DIABETES MELLITUS per A.D.A. criteria. Neutrophils (Bld) [#/Vol] 14.4 10*3/uL 2.0-7.7 [facility] Neutrophils/100 WBC (Bld) 92.5 % 47-70 [facility] Potassium [Moles/Vol] 4.9 mmol/L 3.5-5.1 [facility] Sodium [Moles/Vol] 137 mmol/L 136-145 [facility] WBC (Bld) [#/Vol] 15.5 10*3/uL 4.4-11.0 [facility] Blood erythrocytes count (nu mber/volume)Ordered By: Kraig Bautista on 12-05-2022 RBC (Bld) [#/Vol] 4.21 10*6/uL 4.6-6.2 [facility] Blood hemoglobin measurement (mass/volume)Ordered By: Kraig Bautista on 12-05-2022 Hemoglobin (Bld) [Mass/Vol] 12.5 g/dL 13.0-16.5 [facility] Blood lymphocytes/100 leukoc ytesOrdered By: Kraig Bautista on 12-05-2022 Lymphocytes/100 WBC (Bld) 3.8 % 19-41 [facility] Blood manual differential co mment interpretation (narrative result)Ordered By: Kraig Bautista on 12-05-2022 Manual differential comment Jose D (Bld) [Interp] SCANNED [facility] Comment on above: LYMPHOPENIA NOTED Blood monocytes/100 leukocyt esOrdered By: Kraig Bautista on 12-05-2022 Monocytes/100 WBC (Bld) 2.4 % 0-10 [facility] Blood platelet mean volumeOr dered By: Kraig Bautista on 12-05-2022 Platelet mean volume (Bld) [Entitic vol] 9.7 fL 6.2-12.0 [facility] Determination of erythrocyte mean corpuscular volume (MCV)Ordered By: Kraig Bautista on 12-05-2022 MCV (RBC) [Entitic vol] 91.7 fL 80-94 [facility] Hematocrit Auto (Bld) [Volum e fraction]Ordered By: Kraig Bautista on 12-05-2022 Hematocrit (Bld) [Volume fraction] 38.6 % 40-54 [facility] INR in Blood by Coagulation assayOrdered By: Henrietta Quinonez on 12-05-2022 INR Coag (Bld) [Relative time] 1.0 {INR} [facility] Laboratory - Chemistry and C hemistry - challengeOrdered By: Kraig Bautista on 12-05-2022 CO2 [Moles/Vol] 23.0 mmol/L 21.0-32.0 [facility] Natriuretic peptide B (Bld) [Mass/Vol] 14.5 pg/mL 0-100 [facility] Urea nitrogen/Creatinine [Mass ratio] 17.3 mg/mg 10-20 [facility] Laboratory - Chemistry and C hemistry - challengeOrdered By: Henrietta Quinonez on 12-05-2022 Magnesium [Mass/Vol] 2.2 mg/dL 1.6-2.6 [facility] Laboratory - CoagulationOrde red By: Henrietta Quinonez on 12-05-2022 aPTT Coag (Bld) [Time] 24.1 s 24.1-36.2 [facility] PT Coag (PPP) [Time] 13.0 s 11.7-14.9 [facility] Laboratory - Hematology and Cell countsOrdered By: Kraig Bautista on 12-05-2022 Erythrocyte distribution width (RBC) [Entitic vol] 47.4 fL 35.1-43.9 [facility] Erythrocyte distribution width (RBC) [Ratio] 14.3 % 11.6-14.6 [facility] Immature granulocytes/100 WBC (Bld) 1.100 % 0.0-0.9 [facility] Comment on above: IG% - Immature Granu locytes (promyelocytes, myelocytes and metamyelocytes) > 1% indicates that a LEFT SHIFT is Present. MCH (RBC) [Entitic mass] 29.7 pg 27.0-32.0 [facility] Nucleated RBC/100 WBC (Bld) [Ratio] 0 % 0-5 [facility] MCHC Auto (RBC) [Mass/Vol]Or dered By: Kraig Bautista on 12-05-2022 MCHC (RBC) [Mass/Vol] 32.4 g/dL 32-36 [facility] No Panel InformationOrdered By: Kraig Bautista on 12-05-2022 Estimated Creatinine Clearance Calc 53.42 ml/min [facility] Estimated GFR (MDRD) Amer 57 mL/min >60 [facility] Comment on above: GFR Calc Estimated GFR (MDRD) Non-Af Amer 47 mL/min >60 [facility] Comment on above: Non- GFR Calc Platelets bldOrdered By: Gerson Bautista on 12-05-2022 Platelets (Bld) [#/Vol] 263 10*3/uL 150-450 [facility] Serum or plasma calcium renu urement (mass/volume)Ordered By: Kraig Bautista on 12-05-2022 Calcium [Mass/Vol] 9.1 mg/dL 8.5-10.1 [facility] Serum or plasma creatinine m easurement (mass/volume)Ordered By: Kraig Bautista on 12-05-2022 Creatinine [Mass/Vol] 1.56 mg/dL 0.70-1.30 [facility] Comment on above: The validity of the calculated GFR & GFRAA in patients over 70 years has not been determined. Clinical correlation is essential. Serum or plasma urea nitroge n measurement (mass/volume)Ordered By: Kraig Bautista on 12-05-2022 Urea nitrogen [Mass/Vol] 27 mg/dL 7-18 [facility] Thin prep Papanicolaou smear with manual screeningOrdered By: Kraig Bautista on 12-05-2022 Thin prep Papanicolaou smear with manual screening 5 5-15 [facility] Basic metabolic 1998 panelon 12-03-2022 Anion gap [Moles/Vol] 9 mmol/L 3 - 13 mmol/L [facility] Calcium [Mass/Vol] 9.4 mg/dL 8.4 - 10. 4 mg/dL [facility] Chloride [Moles/Vol] 105 mmol/L 98 - 10 7 mmol/L [facility] CO2 [Moles/Vol] 25 mmol/L 22 - 30 mmol/L [facility] Creatinine [Mass/Vol] 1.39 mg/dL High 0.66 - 1.25 mg/dL [facility] GFR/1.73 sq M.predicted MDRD (S/P/Bld) [Vol rate/Area] 55.6 mL/min/{1.73_m2} Low - PINF [facility] Comment on above: Calculation based on the Chronic Kidney Disease Epidemiology Collaboration (CKD-EPI) equation refit without adjustment for race Glucose [Mass/Vol] 82 mg/dL 70 - 100 mg/dL [facility] Interpretation and review of laboratory results Abnormal [facility] Potassium [Moles/Vol] 4.4 mmol/L 3.5 - 5.1 mmol/L [facility] Sodium [Moles/Vol] 139 mmol/L 135 - 145 mmol/L [facility] Urea nitrogen [Mass/Vol] 29 mg/dL High 9 - 20 mg/dL [facility] Polysomnographyon 11-27-2022 [facility] Absolute lymphocyte countOrd ered By: Adrianna Royal on 11-25-2022 Lymphocytes Auto (Unsp spec) [#/Vol] 1.49 10*3/uL 0.83-4.51 [facility] Basophil percentageOrdered B y: Adrianna Royal on 11-25-2022 Basophils/100 WBC (Bld) 0.6 % 0-1 [facility] Bilirubin [Mass/Vol] 1.10 mg/dL 0.20-1.00 [facility] Comment on above: For patients on eltr ombopag therapy, use of Dimension [place] TBIL is not recommended. Chloride [Moles/Vol] 108 mmol/L 98-107 [facility] Eosinophils/100 WBC (Bld) 1.0 % 0-5 [facility] Glucose [Mass/Vol] 123 mg/dL 74-106 [facility] Comment on above: Fasting Glucose resu lt from 100 to 125 mg/dL suggests IMPAIRED HOMEOSTASIS per A.D.A. criteria. Neutrophils (Bld) [#/Vol] 5.6 10*3/uL 2.0-7.7 [facility] Neutrophils/100 WBC (Bld) 71.7 % 47-70 [facility] Potassium [Moles/Vol] 4.4 mmol/L 3.5-5.1 [facility] Protein [Mass/Vol] 7.8 g/dL 6.4-8.2 [facility] Sodium [Moles/Vol] 138 mmol/L 136-145 [facility] WBC (Bld) [#/Vol] 7.8 10*3/uL 4.4-11.0 [facility] Blood erythrocytes count (nu mber/volume)Ordered By: Adrianna Royal on 11-25-2022 RBC (Bld) [#/Vol] 4.42 10*6/uL 4.6-6.2 [facility] Blood hemoglobin measurement (mass/volume)Ordered By: Adrianna Royal on 11-25-2022 Hemoglobin (Bld) [Mass/Vol] 13.4 g/dL 13.0-16.5 [facility] Blood lymphocytes/100 leukoc ytesOrdered By: Adrianna Royal on 11-25-2022 Lymphocytes/100 WBC (Bld) 19.0 % 19-41 [facility] Blood monocytes/100 leukocyt esOrdered By: Adrianna Royal on 11-25-2022 Monocytes/100 WBC (Bld) 6.8 % 0-10 [facility] Blood platelet mean volumeOr dered By: Adrianna Royal on 11-25-2022 Platelet mean volume (Bld) [Entitic vol] 9.6 fL 6.2-12.0 [facility] Determination of erythrocyte mean corpuscular volume (MCV)Ordered By: Adrianna Royal on 11-25-2022 MCV (RBC) [Entitic vol] 89.1 fL 80-94 [facility] Hematocrit Auto (Bld) [Volum e fraction]Ordered By: Adrianna Royal on 11-25-2022 Hematocrit (Bld) [Volume fraction] 39.4 % 40-54 [facility] Laboratory - Chemistry and C hemistry - challengeOrdered By: Adrianna Royal on 11-25-2022 ALP [Catalytic activity/Vol] 104 U/L 45-117 [facility] ALT [Catalytic activity/Vol] 38 U/L 16-61 [facility] CO2 [Moles/Vol] 25.0 mmol/L 21.0-32.0 [facility] Globulin (S) [Mass/Vol] 4.1 g/dL 2.2-4.2 [facility] Urea nitrogen/Creatinine [Mass ratio] 18.4 mg/mg 10-20 [facility] Laboratory - Hematology and Cell countsOrdered By: Adrianna Royal on 11-25-2022 Erythrocyte distribution width (RBC) [Entitic vol] 44.2 fL 35.1-43.9 [facility] Erythrocyte distribution width (RBC) [Ratio] 13.5 % 11.6-14.6 [facility] Immature granulocytes/100 WBC (Bld) 0.900 % 0.0-0.9 [facility] Comment on above: IG% - Immature Granu locytes (promyelocytes, myelocytes and metamyelocytes) > 1% indicates that a LEFT SHIFT is Present. MCH (RBC) [Entitic mass] 30.3 pg 27.0-32.0 [facility] Nucleated RBC/100 WBC (Bld) [Ratio] 0 % 0-5 [facility] MCHC Auto (RBC) [Mass/Vol]Or dered By: Adrianna Royal on 11-25-2022 MCHC (RBC) [Mass/Vol] 34.0 g/dL 32-36 [facility] No Panel InformationOrdered By: Adrianna Royal on 11-25-2022 Estimated GFR (MDRD) Amer 61 mL/min >60 [facility] Comment on above: GFR Calc Estimated GFR (MDRD) Non-Af Amer 51 mL/min >60 [facility] Comment on above: Non- GFR Calc Thyroid Stimulating Hormone (TSH) 1.20 uIU/mL 0.358-3.74 [facility] Vitamin D 25-Hydroxy 27.8 ng/mL [facility] Comment on above: Vitamin D 25(OH) Sta tus Range Deficiency <20 ng/mL (50nmol/L) Insufficiency 20 - 30 ng/mL (50 - 75 nmol/L) Sufficiency 30 - 100 ng/mL (75 - 250 nmol/L) Toxicity >100 ng/mL (>250 nmol/L) Platelets bldOrdered By: Courtney Royal on 11-25-2022 Platelets (Bld) [#/Vol] 242 10*3/uL 150-450 [facility] Serum or plasma albumin renu urement (mass/volume)Ordered By: Adrianna Royal on 11-25-2022 Albumin [Mass/Vol] 3.7 g/dL 3.2-5.0 [facility] Serum or plasma albumin/glob ulin mass ratioOrdered By: Adrianna Royal on 11-25-2022 Albumin/Globulin [Mass ratio] 0.9 {ratio} 0.9-2.4 [facility] Serum or plasma calcium renu urement (mass/volume)Ordered By: Adrianna Royal on 11-25-2022 Calcium [Mass/Vol] 9.1 mg/dL 8.5-10.1 [facility] Serum or plasma creatinine m easurement (mass/volume)Ordered By: Adrianna Royal on 11-25-2022 Creatinine [Mass/Vol] 1.47 mg/dL 0.70-1.30 [facility] Comment on above: The validity of the calculated GFR & GFRAA in patients over 70 years has not been determined. Clinical correlation is essential. Serum or plasma urea nitroge n measurement (mass/volume)Ordered By: Adrianna Royal on 11-25-2022 Urea nitrogen [Mass/Vol] 27 mg/dL 7-18 [facility] Thin prep Papanicolaou smear with manual screeningOrdered By: Adrianna Royal on 11-25-2022 Thin prep Papanicolaou smear with manual screening 15 U/L 15-37 [facility] Thin prep Papanicolaou smear with manual screening 5 5-15 [facility] US Heart TransthoracicOrdere d By: Stephan Crawley on 11-18-2022 Aortic Sinus Valsalva 3.1 cm [facility] Work Phone: Aortic Sinus Valsalva Index 1.21 cm/m2 [facility] Work Phone: [phone] Ascending Aorta 4.5 cm [facility] [employer] Work Phone: [phone] Ascending Aorta Index 1.76 cm/m2 [facility] [employer] Work Phone: [phone] AV Area by Peak Velocity 2.1 cm2 [facility] [employer] Work Phone: [phone] AV Area by VTI 2.2 cm2 [facility] [employer] Work Phone: [phone] AV Mean Gradient 6 mmHg [facility] Work Phone: [phone] AV Mean Velocity 1.1 m/s [facility] [employer] Work Phone: [phone] AV Peak Gradient 9 mmHg [facility] [employer] Work Phone: [phone] AV Peak Velocity 1.5 m/s [facility] [employer] Work Phone: [phone] AV Velocity Ratio 0.67 [facility] [employer] Work Phone: [phone] AV VTI 31.8 cm [facility] [employer] Work Phone: [phone] GRACE/BSA Peak Velocity 0.8 cm2/m2 [facility] Work Phone: [phone] GRACE/BSA VTI 0.9 cm2/m2 [facility] [employer] Work Phone: [phone] Fractional Shortening 2D 31 % 28 - 44 % [facility] [employer] Work Phone: [phone] Global Longitudinal Strain -11.5 % [facility] [employer] Work Phone: Interpretation and review of laboratory results Abnormal [facility] [employer] Work Phone: IVC Diameter 2.2 cm [facility] [employer] Work Phone: [phone] IVSd 1.7 cm Abnormal 0.6 - 1.0 cm [facility] [employer] Work Phone: [phone] LA Diameter 4.9 cm [facility] [employer] Work Phone: [phone] LA Size Index 1.91 cm/m2 [facility] [employer] Work Phone: LA Volume 2C 81 mL Abnormal 18 - 58 mL [facility] [employer] Work Phone: LA Volume 4C 92 mL Abnormal 18 - 58 mL [facility] [employer] Work Phone: [phone] LA Volume A/L 93 mL [facility] [employer] Work Phone: LA Volume Index 2C 32 mL/m2 16 - 34 mL/m2 [employer] Work Phone: [phone] LA Volume Index 4C 36 mL/m2 Abnormal 16 - 34 mL/m2 [employer] Work Phone: [phone] LA Volume Index A/L 36 mL/m2 16 - 34 mL/m2 [employer] Work Phone: [phone] LV EDV A2C 156 mL [employer] Work Phone: LV EDV A4C 147 mL [employer] Work Phone: [phone] LV EDV BP 155 mL 67 - 155 mL [employer] Work Phone: [phone] LV EDV Index A2C 61 mL/m2 [employer] Work Phone: [phone] LV EDV Index A4C 57 mL/m2 [employer] Phone: LV EDV Index BP 61 mL/m2 [employer] Work Phone: LV ESV A2C 55 mL [employer] Work Phone: LV ESV A4C 69 mL [employer] Work Phone: LV ESV BP 62 mL Abnormal 22 - 58 mL [employer] Work Phone: [phone] LV ESV Index A2C 21 mL/m2 [employer] Phone: LV ESV Index A4C 27 mL/m2 [employer] Phone: LV ESV Index BP 24 mL/m2 [employer] Work Phone: LV Mass 2D 417.5 g Abnormal 88 - 224 g [employer] Work Phone: LV Mass 2D Index 163.1 g/m2 Abnormal 49 - 115 g/m2 [employer] Work Phone: LV RWT Ratio 0.59 [employer] Phone: [phone] LVIDd 5.4 cm 4.2 - 5.9 cm [employer] Work Phone: LVIDd Index 2.11 cm/m2 [employer] Work Phone: LVIDs 3.7 cm [facility] Work Phone: [phone] LVIDs Index 1.45 cm/m2 [facility] Work Phone: [phone] LVOT Area 3.1 cm2 [facility] [employer] Work Phone: [phone] LVOT Cardiac Output 13.3 liter/mi nu te [facility] [employer] Work Phone: [phone] LVOT Diameter 2.0 cm [facility] [employer] Work Phone: [phone] LVOT Mean Gradient 2 mmHg [facility] [employer] Work Phone: [phone] LVOT Peak Gradient 4 mmHg [facility] [employer] Work Phone: [phone] LVOT Peak Velocity 1.0 m/s [facility] [employer] Work Phone: [phone] LVOT Stroke Volume Index 27.2 mL/m2 [facility] Phone: [phone] LVOT SV 69.7 ml [facility] [employer] Work Phone: [phone] LVOT VTI 22.2 cm [facility] [employer] Work Phone: [phone] LVOT:AV VTI Index 0.70 [facility] [employer] Work Phone: [phone] LVPWd 1.6 cm Abnormal 0.6 - 1.0 cm [facility] [employer] Work Phone: [phone] MV A Velocity 0.61 m/s [facility] [employer] Work Phone: [phone] MV E Velocity 0.58 m/s [facility] [employer] Work Phone: [phone] MV E Wave Deceleration Time 215.7 ms [facility] [employer] Work Phone: [phone] MV E/A 0.95 [facility] [employer] Work Phone: [phone] RV Basal Dimension 3.0 cm [facility] Work Phone: [phone] RV Longitudinal Dimension 1.8 cm [facility] [employer] Work Phone: [phone] Sinotubular Junction 2.7 cm [facility] [employer] Work Phone: [phone] TAPSE 2.2 cm 1.7 cm [facility] [employer] Work Phone: [phone] TR Max Velocity 2.19 m/s [facility] [employer] Work Phone: [phone] TR Peak Gradient 19 mmHg [employer] Work Phone: [facility] Work Phone: Heart Transthoracicon Left Ventricle: Left ventricle size [...] percentageon 2022 Chloride [Moles/Vol] 110 mmol/L 98-107 [facility] Glucose [Mass/Vol] 108 mg/dL 74-106 [facility] Comment on above: Fasting Glucose resu lt from 100 to 125 mg/dL suggests IMPAIRED HOMEOSTASIS per A.D.A. criteria. Potassium [Moles/Vol] 4.0 mmol/L 3.5-5.1 [facility] Sodium [Moles/Vol] 140 mmol/L 136-145 [facility] Laboratory - Chemistry and C hemistry - challengeon 10-27-2022 CO2 [Moles/Vol] 27.0 mmol/L 21.0-32.0 [facility] Urea nitrogen/Creatinine [Mass ratio] 21.1 mg/mg 10-20 [facility] No Panel Informationon 10-27 Estimated GFR (MDRD) Amer 59 mL/min >60 [facility] Comment on above: GFR Calc Estimated GFR (MDRD) Non-Af Amer 49 mL/min >60 [facility] Comment on above: Non- GFR Calc Serum or plasma calcium renu urement (mass/volume)on 10-27-2022 Calcium [Mass/Vol] 8.8 mg/dL 8.5-10.1 [facility] Serum or plasma creatinine m easurement (mass/volume)on 10-27-2022 Creatinine [Mass/Vol] 1.52 mg/dL 0.70-1.30 [facility] Comment on above: The validity of the calculated GFR & GFRAA in patients over 70 years has not been determined. Clinical correlation is essential. Serum or plasma urea nitroge n measurement (mass/volume)on 10-27-2022 Urea nitrogen [Mass/Vol] 32 mg/dL 7-18 [facility] Thin prep Papanicolaou smear with manual screeningon 10-27-2022 Thin prep Papanicolaou smear with manual screening 3 5-15 [facility] Basophil percentageon 2022 Chloride [Moles/Vol] 108 mmol/L 98-107 [facility] Glucose [Mass/Vol] 168 mg/dL 74-106 [facility] Comment on above: Fasting Glucose resu lt greater than or equal to 126 mg/dL suggests DIABETES MELLITUS per A.D.A. criteria. Potassium [Moles/Vol] 4.0 mmol/L 3.5-5.1 [facility] Sodium [Moles/Vol] 142 mmol/L 136-145 [facility] Laboratory - Chemistry and C hemistry - challengeon 10-22-2022 CO2 [Moles/Vol] 26.0 mmol/L 21.0-32.0 [facility] Urea nitrogen/Creatinine [Mass ratio] 30.3 mg/mg 10-20 [facility] No Panel Informationon 10-22 Estimated GFR (MDRD) Amer 50 mL/min >60 [facility] Comment on above: GFR Calc Estimated GFR (MDRD) Non-Af Amer 42 mL/min >60 [facility] Comment on above: Non- GFR Calc Serum or plasma calcium renu urement (mass/volume)on 10-22-2022 Calcium [Mass/Vol] 9.0 mg/dL 8.5-10.1 [facility] Serum or plasma creatinine m easurement (mass/volume)on 10-22-2022 Creatinine [Mass/Vol] 1.75 mg/dL 0.70-1.30 [facility] Comment on above: The validity of the calculated GFR & GFRAA in patients over 70 years has not been determined. Clinical correlation is essential. Serum or plasma urea nitroge n measurement (mass/volume)on 10-22-2022 Urea nitrogen [Mass/Vol] 53 mg/dL 7-18 [facility] Thin prep Papanicolaou smear with manual screeningon 10-22-2022 Thin prep Papanicolaou smear with manual screening 8 5-15 [facility] Basophil percentageon 2022 Chloride [Moles/Vol] 105 mmol/L 98-107 [facility] Glucose [Mass/Vol] 139 mg/dL 74-106 [facility] Comment on above: Fasting Glucose resu lt greater than or equal to 126 mg/dL suggests DIABETES MELLITUS per A.D.A. criteria. Potassium [Moles/Vol] 4.2 mmol/L 3.5-5.1 [facility] Sodium [Moles/Vol] 140 mmol/L 136-145 [facility] Laboratory - Chemistry and C hemistry - challengeon 10-06-2022 CO2 [Moles/Vol] 27.0 mmol/L 21.0-32.0 [facility] Natriuretic peptide B (Bld) [Mass/Vol] 14.7 pg/mL 0-100 [facility] Urea nitrogen/Creatinine [Mass ratio] 17.6 mg/mg 10-20 [facility] No Panel Informationon 10-06 D-Dimer Quantitative (PE/DVT) 0.37 FEU/ug/m 0.27-0.49 [facility] Comment on above: NORMAL D-Dimer level (<0.50) indicates no DVT or PE. Estimated GFR (MDRD) Amer 64 mL/min >60 [facility] Comment on above: GFR Calc Estimated GFR (MDRD) Non-Af Amer 53 mL/min >60 [facility] Comment on above: Non- GFR Calc Serum or plasma calcium renu urement (mass/volume)on 10-06-2022 Calcium [Mass/Vol] 9.2 mg/dL 8.5-10.1 [facility] Serum or plasma creatinine m easurement (mass/volume)on 10-06-2022 Creatinine [Mass/Vol] 1.42 mg/dL 0.70-1.30 [facility] Comment on above: The validity of the calculated GFR & GFRAA in patients over 70 years has not been determined. Clinical correlation is essential. Serum or plasma urea nitroge n measurement (mass/volume)on 10-06-2022 Urea nitrogen [Mass/Vol] 25 mg/dL 7-18 [facility] Thin prep Papanicolaou smear with manual screeningon 10-06-2022 Thin prep Papanicolaou smear with manual screening 8 5-15 [facility] Absolute lymphocyte counton 09-29-2022 Lymphocytes Auto (Unsp spec) [#/Vol] 1.29 10*3/uL 0.83-4.51 [facility] Basophil percentageon 2022 Basophils/100 WBC (Bld) 0.5 % 0-1 [facility] Bilirubin [Mass/Vol] 1.00 mg/dL 0.20-1.00 [facility] Comment on above: For patients on eltr ombopag therapy, use of Dimension [place] TBIL is not recommended. Chloride [Moles/Vol] 111 mmol/L 98-107 [facility] Eosinophils/100 WBC (Bld) 1.2 % 0-5 [facility] Glucose [Mass/Vol] 107 mg/dL 74-106 [facility] Comment on above: Fasting Glucose resu lt from 100 to 125 mg/dL suggests IMPAIRED HOMEOSTASIS per A.D.A. criteria. Neutrophils (Bld) [#/Vol] 5.4 10*3/uL 2.0-7.7 [facility] Neutrophils/100 WBC (Bld) 73.9 % 47-70 [facility] Potassium [Moles/Vol] 3.9 mmol/L 3.5-5.1 [facility] Protein [Mass/Vol] 7.0 g/dL 6.4-8.2 [facility] Sodium [Moles/Vol] 143 mmol/L 136-145 [facility] WBC (Bld) [#/Vol] 7.4 10*3/uL 4.4-11.0 [facility] Blood erythrocytes count (nu mber/volume)on 09-29-2022 RBC (Bld) [#/Vol] 4.09 10*6/uL 4.6-6.2 [facility] Blood hemoglobin measurement (mass/volume)on 09-29-2022 Hemoglobin (Bld) [Mass/Vol] 12.1 g/dL 13.0-16.5 [facility] Blood lymphocytes/100 leukoc yteson 09-29-2022 Lymphocytes/100 WBC (Bld) 17.6 % 19-41 [facility] Blood monocytes/100 leukocyt eson 09-29-2022 Monocytes/100 WBC (Bld) 6.4 % 0-10 [facility] Blood platelet mean volumeon 09-29-2022 Platelet mean volume (Bld) [Entitic vol] 9.5 fL 6.2-12.0 [facility] Determination of erythrocyte mean corpuscular volume (MCV)on 09-29-2022 MCV (RBC) [Entitic vol] 91.7 fL 80-94 [facility] Direct bilirubinon 3 Bilirubin.direct [Mass/Vol] 0.25 mg/dL 0.00-0.30 [facility] Hematocrit Auto (Bld) [Volum e fraction]on 09-29-2022 Hematocrit (Bld) [Volume fraction] 37.5 % 40-54 [facility] Laboratory - Chemistry and C hemistry - challengeon 09-29-2022 ALP [Catalytic activity/Vol] 111 U/L 45-117 [facility] ALT [Catalytic activity/Vol] 39 U/L 16-61 [facility] CO2 [Moles/Vol] 27.0 mmol/L 21.0-32.0 [facility] Globulin (S) [Mass/Vol] 3.4 g/dL 2.2-4.2 [facility] Natriuretic peptide B (Bld) [Mass/Vol] 17.5 pg/mL 0-100 [facility] Urea nitrogen/Creatinine [Mass ratio] 17.1 mg/mg 10-20 [facility] Laboratory - Hematology and Cell countson 09-29-2022 Erythrocyte distribution width (RBC) [Entitic vol] 47.3 fL 35.1-43.9 [facility] Erythrocyte distribution width (RBC) [Ratio] 14.1 % 11.6-14.6 [facility] Immature granulocytes/100 WBC (Bld) 0.400 % 0.0-0.9 [facility] Comment on above: IG% - Immature Granu locytes (promyelocytes, myelocytes and metamyelocytes) > 1% indicates that a LEFT SHIFT is Present. MCH (RBC) [Entitic mass] 29.6 pg 27.0-32.0 [facility] Nucleated RBC/100 WBC (Bld) [Ratio] 0 % 0-5 [facility] MCHC Auto (RBC) [Mass/Vol]on 09-29-2022 MCHC (RBC) [Mass/Vol] 32.3 g/dL 32-36 [facility] No Panel Informationon 09-29 Estimated GFR (MDRD) Amer 76 mL/min >60 [facility] Comment on above: GFR Calc Estimated GFR (MDRD) Non-Af Amer 62 mL/min >60 [facility] Comment on above: Non- GFR Calc Platelets bldon 09-29-2022 Platelets (Bld) [#/Vol] 216 10*3/uL 150-450 [facility] Serum or plasma albumin renu urement (mass/volume)on 09-29-2022 Albumin [Mass/Vol] 3.6 g/dL 3.2-5.0 [facility] Serum or plasma calcium renu urement (mass/volume)on 09-29-2022 Calcium [Mass/Vol] 8.7 mg/dL 8.5-10.1 [facility] Serum or plasma creatinine m easurement (mass/volume)on 09-29-2022 Creatinine [Mass/Vol] 1.23 mg/dL 0.70-1.30 [facility] Comment on above: The validity of the calculated GFR & GFRAA in patients over 70 years has not been determined. Clinical correlation is essential. Serum or plasma urea nitroge n measurement (mass/volume)on 09-29-2022 Urea nitrogen [Mass/Vol] 21 mg/dL 7-18 [facility] Thin prep Papanicolaou smear with manual screeningon 09-29-2022 Thin prep Papanicolaou smear with manual screening 13 U/L 15-37 [facility] Thin prep Papanicolaou smear with manual screening 5 5-15 [facility] No Panel Informationon 09-28 Sinus Bradycardia WITHIN NORMAL LIMITS [facility] [employer] No Panel InformationOrdered By: Zoie Gonzales on 09-28-2022 [facility] [employer] Work Phone: Absolute lymphocyte countOrd ered By: Dr. Ferrell on 09-22-2022 Lymphocytes Auto (Unsp spec) [#/Vol] 1.24 10*3/uL 0.83-4.51 [facility] Basophil percentageOrdered B y: Dr. Ferrell on 09-22-2022 Basophils/100 WBC (Bld) 0.4 % 0-1 [facility] Bilirubin [Mass/Vol] 1.30 mg/dL 0.20-1.00 [facility] Comment on above: For patients on eltr ombopag therapy, use of Dimension [place] TBIL is not recommended. Chloride [Moles/Vol] 108 mmol/L 98-107 [facility] Cholesterol [Mass/Vol] 133 mg/dL <200 [facility] Comment on above: <200 mg/dL Desirable 200-240 mg/dL Borderline >240 mg/dL High Risk Eosinophils/100 WBC (Bld) 1.7 % 0-5 [facility] Glucose [Mass/Vol] 103 mg/dL 74-106 [facility] Comment on above: Fasting Glucose resu lt from 100 to 125 mg/dL suggests IMPAIRED HOMEOSTASIS per A.D.A. criteria. Neutrophils (Bld) [#/Vol] 5.8 10*3/uL 2.0-7.7 [facility] Neutrophils/100 WBC (Bld) 75.5 % 47-70 [facility] Potassium [Moles/Vol] 3.6 mmol/L 3.5-5.1 [facility] Protein [Mass/Vol] 7.1 g/dL 6.4-8.2 [facility] Sodium [Moles/Vol] 142 mmol/L 136-145 [facility] Triglyceride [Mass/Vol] 121 mg/dL <199 [facility] Comment on above: The drugs N-Acetylcy steine and Metamizole may falsely depress this assay.Serum Triglycerides Reference Interval Normal <150 mg/dL Borderline high 150 - 199 mg/dL High 200 - 499 mg/dL Very High > or = 500 mg/dL WBC (Bld) [#/Vol] 7.7 10*3/uL 4.4-11.0 [facility] Blood erythrocytes count (nu mber/volume)Ordered By: Dr. Ferrell on 09-22-2022 RBC (Bld) [#/Vol] 4.03 10*6/uL 4.6-6.2 [facility] Blood hemoglobin measurement (mass/volume)Ordered By: Dr. Ferrell on 09-22-2022 Hemoglobin (Bld) [Mass/Vol] 11.8 g/dL 13.0-16.5 [facility] Blood lymphocytes/100 leukoc ytesOrdered By: Dr. Ferrell on 09-22-2022 Lymphocytes/100 WBC (Bld) 16.1 % 19-41 [facility] Blood monocytes/100 leukocyt esOrdered By: Dr. Ferrell on 09-22-2022 Monocytes/100 WBC (Bld) 6.0 % 0-10 [facility] Blood platelet mean volumeOr dered By: Dr. Ferrell on 09-22-2022 Platelet mean volume (Bld) [Entitic vol] 9.9 fL 6.2-12.0 [facility] Determination of erythrocyte mean corpuscular volume (MCV)Ordered By: Dr. Ferrell on 09-22-2022 MCV (RBC) [Entitic vol] 91.6 fL 80-94 [facility] Hematocrit Auto (Bld) [Volum e fraction]Ordered By: Dr. Ferrell on 09-22-2022 Hematocrit (Bld) [Volume fraction] 36.9 % 40-54 [facility] Iron measurement (mass/mass) Ordered By: Dr. Ferrell on 09-22-2022 Iron (Unsp spec) [Mass/Mass] 57 ug/dL 65-175 [facility] Laboratory - Chemistry and C hemistry - challengeOrdered By: Dr. Ferrell on 09-22-2022 ALP [Catalytic activity/Vol] 111 U/L 45-117 [facility] ALT [Catalytic activity/Vol] 39 U/L 16-61 [facility] CO2 [Moles/Vol] 28.0 mmol/L 21.0-32.0 [facility] Cobalamin (Vitamin B12) [Mass/Vol] 248 pg/mL 211-911 [facility] Free T4 [Mass/Vol] 1.04 ng/dL 0.76-1.46 [facility] Globulin (S) [Mass/Vol] 3.5 g/dL 2.2-4.2 [facility] Magnesium [Mass/Vol] 1.9 mg/dL 1.6-2.6 [facility] Urea nitrogen/Creatinine [Mass ratio] 14.8 mg/mg 10-20 [facility] Laboratory - Hematology and Cell countsOrdered By: Dr. Ferrell on 09-22-2022 Erythrocyte distribution width (RBC) [Entitic vol] 47.9 fL 35.1-43.9 [facility] Erythrocyte distribution width (RBC) [Ratio] 14.3 % 11.6-14.6 [facility] Immature granulocytes/100 WBC (Bld) 0.300 % 0.0-0.9 [facility] Comment on above: IG% - Immature Granu locytes (promyelocytes, myelocytes and metamyelocytes) > 1% indicates that a LEFT SHIFT is Present. MCH (RBC) [Entitic mass] 29.3 pg 27.0-32.0 [facility] Nucleated RBC/100 WBC (Bld) [Ratio] 0 % 0-5 [facility] MCHC Auto (RBC) [Mass/Vol]Or dered By: Dr. Ferrell on 09-22-2022 MCHC (RBC) [Mass/Vol] 32.0 g/dL 32-36 [facility] No Panel InformationOrdered By: Dr. Ferrell on 09-22-2022 Estimated GFR (MDRD) Amer 76 mL/min >60 [facility] Comment on above: GFR Calc Estimated GFR (MDRD) Non-Af Amer 63 mL/min >60 [facility] Comment on above: Non- GFR Calc Thyroid Stimulating Hormone (TSH) 1.48 uIU/mL 0.358-3.74 [facility] Total Iron Binding Capacity 263 ug/dL 250-450 [facility] Vitamin D 25-Hydroxy 25.5 ng/mL [facility] Comment on above: Vitamin D 25(OH) Sta tus Range Deficiency <20 ng/mL (50nmol/L) Insufficiency 20 - 30 ng/mL (50 - 75 nmol/L) Sufficiency 30 - 100 ng/mL (75 - 250 nmol/L) Toxicity >100 ng/mL (>250 nmol/L) Platelets bldOrdered By: Dr. Ferrell on 09-22-2022 Platelets (Bld) [#/Vol] 226 10*3/uL 150-450 [facility] Serum or plasma albumin renu urement (mass/volume)Ordered By: Dr. Ferrell on 09-22-2022 Albumin [Mass/Vol] 3.6 g/dL 3.2-5.0 [facility] Serum or plasma albumin/glob ulin mass ratioOrdered By: Dr. Ferrell on 09-22-2022 Albumin/Globulin [Mass ratio] 1.0 {ratio} 0.9-2.4 [facility] Serum or plasma calcium renu urement (mass/volume)Ordered By: Dr. Ferrell on 09-22-2022 Calcium [Mass/Vol] 8.7 mg/dL 8.5-10.1 [facility] Serum or plasma cholesterol in HDL measurement (mass/volume)Ordered By: Dr. Ferrell on 09-22-2022 Cholesterol in HDL [Mass/Vol] 51 mg/dL >40 [facility] Comment on above: The drugs N-Acetylcy steine and Metamizole may falsely depress this assay. Reference Range HDL <40 mg/dL Low HDL Cholesterol HDL >or= 60 mg/dL High HDL Cholesterol Serum or plasma cholesterol in VLDL measurement (mass/volume)Ordered By: Dr. Ferrell on 09-22-2022 Cholesterol in VLDL [Mass/Vol] 24 mg/dL 5-40 [facility] Serum or plasma creatinine m easurement (mass/volume)Ordered By: Dr. Ferrell on 09-22-2022 Creatinine [Mass/Vol] 1.22 mg/dL 0.70-1.30 [facility] Comment on above: The validity of the calculated GFR & GFRAA in patients over 70 years has not been determined. Clinical correlation is essential. Serum or plasma ferritin ellen surement (mass/volume)Ordered By: Dr. Ferrell on 09-22-2022 Ferritin [Mass/Vol] 222 ng/mL 26-388 [facility] Serum or plasma low density lipoprotein (LDL) cholesterol measurement (mass/volume)Ordered By: Dr. Ferrell on 09-22-2022 Cholesterol in LDL [Mass/Vol] 58 mg/dL 0-130 [facility] Serum or plasma urea nitroge n measurement (mass/volume)Ordered By: Dr. Ferrell on 09-22-2022 Urea nitrogen [Mass/Vol] 18 mg/dL 7-18 [facility] Thin prep Papanicolaou smear with manual screeningOrdered By: Dr. Ferrell on 09-22-2022 Thin prep Papanicolaou smear with manual screening 21 U/L 15-37 [facility] Thin prep Papanicolaou smear with manual screening 6 5-15 [facility] Whole blood hemoglobin A1c/t otal hemoglobin ratio (mass fraction)Ordered By: Dr. Ferrell on 09-22-2022 HbA1c (Bld) [Mass fraction] 5.2 % 3.8-5.6 [facility] Comment on above: Normal < 5.7 % Predi abetic 5.7 - 6.4 % Diabetic >or= 6.5 % Please note range changes. Absolute lymphocyte countOrd ered By: Dr. Cornelius on 08-21-2022 Lymphocytes Auto (Unsp spec) [#/Vol] 0.67 10*3/uL 0.83-4.51 [facility] Basophil percentageOrdered B y: Dr. Cornelius on 08-21-2022 Basophils/100 WBC (Bld) 0.1 % 0-1 [facility] Eosinophils/100 WBC (Bld) 0.0 % 0-5 [facility] Neutrophils (Bld) [#/Vol] 14.4 10*3/uL 2.0-7.7 [facility] Neutrophils/100 WBC (Bld) 90.5 % 47-70 [facility] WBC (Bld) [#/Vol] 15.9 10*3/uL 4.4-11.0 [facility] Blood erythrocytes count (nu mber/volume)Ordered By: Dr. Cornelius on 08-21-2022 RBC (Bld) [#/Vol] 4.11 10*6/uL 4.6-6.2 [facility] Blood hemoglobin measurement (mass/volume)Ordered By: Dr. Cornelius on 08-21-2022 Hemoglobin (Bld) [Mass/Vol] 12.1 g/dL 13.0-16.5 [facility] Blood lymphocytes/100 leukoc ytesOrdered By: Dr. Cornelius on 08-21-2022 Lymphocytes/100 WBC (Bld) 4.2 % 19-41 [facility] Blood monocytes/100 leukocyt esOrdered By: Dr. Cornelius on 08-21-2022 Monocytes/100 WBC (Bld) 4.8 % 0-10 [facility] Blood platelet mean volumeOr dered By: Dr. Cornelius on 08-21-2022 Platelet mean volume (Bld) [Entitic vol] 10.1 fL 6.2-12.0 [facility] Determination of erythrocyte mean corpuscular volume (MCV)Ordered By: Dr. Cornelius on 08-21-2022 MCV (RBC) [Entitic vol] 92.2 fL 80-94 [facility] Hematocrit Auto (Bld) [Volum e fraction]Ordered By: Dr. Cornelius on 08-21-2022 Hematocrit (Bld) [Volume fraction] 37.9 % 40-54 [facility] Laboratory - Hematology and Cell countsOrdered By: Dr. Cornelius on 08-21-2022 Erythrocyte distribution width (RBC) [Entitic vol] 47.8 fL 35.1-43.9 [facility] Erythrocyte distribution width (RBC) [Ratio] 14.1 % 11.6-14.6 [facility] Immature granulocytes/100 WBC (Bld) 0.400 % 0.0-0.9 [facility] Comment on above: IG% - Immature Granu locytes (promyelocytes, myelocytes and metamyelocytes) > 1% indicates that a LEFT SHIFT is Present. MCH (RBC) [Entitic mass] 29.4 pg 27.0-32.0 [facility] Nucleated RBC/100 WBC (Bld) [Ratio] 0 % 0-5 [facility] MCHC Auto (RBC) [Mass/Vol]Or dered By: Dr. Cornelius on 08-21-2022 MCHC (RBC) [Mass/Vol] 31.9 g/dL 32-36 [facility] Platelets bldOrdered By: Dr. Cornelius on 08-21-2022 Platelets (Bld) [#/Vol] 252 10*3/uL 150-450 [facility] Basophil percentageOrdered B y: Dr. Hayes on 08-12-2022 Bilirubin [Mass/Vol] 1.10 mg/dL 0.20-1.00 [facility] Comment on above: For patients on eltr ombopag therapy, use of Dimension [place] TBIL is not recommended. Chloride [Moles/Vol] 109 mmol/L 98-107 [facility] Glucose [Mass/Vol] 106 mg/dL 74-106 [facility] Comment on above: Fasting Glucose resu lt from 100 to 125 mg/dL suggests IMPAIRED HOMEOSTASIS per A.D.A. criteria. Potassium [Moles/Vol] 3.8 mmol/L 3.5-5.1 [facility] Protein [Mass/Vol] 7.4 g/dL 6.4-8.2 [facility] Sodium [Moles/Vol] 143 mmol/L 136-145 [facility] Direct bilirubinOrdered By: Dr. Hayes on 08-12-2022 Bilirubin.direct [Mass/Vol] 0.24 mg/dL 0.00-0.30 [facility] INR in Blood by Coagulation assayOrdered By: Dr. Hayes on 08-12-2022 INR Coag (Bld) [Relative time] 1.1 {INR} [facility] Laboratory - Chemistry and C hemistry - challengeOrdered By: Dr. Hayes on 08-12-2022 ALP [Catalytic activity/Vol] 115 U/L 45-117 [facility] ALT [Catalytic activity/Vol] 42 U/L 16-61 [facility] CO2 [Moles/Vol] 28.0 mmol/L 21.0-32.0 [facility] Globulin (S) [Mass/Vol] 3.6 g/dL 2.2-4.2 [facility] Urea nitrogen/Creatinine [Mass ratio] 16.0 mg/mg 10-20 [facility] Laboratory - CoagulationOrde red By: Dr. Hayes on 08-12-2022 aPTT Coag (Bld) [Time] 30.4 s 24.1-36.2 [facility] PT Coag (PPP) [Time] 13.8 s 11.7-14.9 [facility] No Panel InformationOrdered By: Dr. Hayes on 08-12-2022 Estimated GFR (MDRD) Amer 79 mL/min >60 [facility] Comment on above: GFR Calc Estimated GFR (MDRD) Non-Af Amer 65 mL/min >60 [facility] Comment on above: Non- GFR Calc Serum or plasma albumin renu urement (mass/volume)Ordered By: Dr. Hayes on 08-12-2022 Albumin [Mass/Vol] 3.8 g/dL 3.2-5.0 [facility] Serum or plasma calcium renu urement (mass/volume)Ordered By: Dr. Hayes on 08-12-2022 Calcium [Mass/Vol] 8.9 mg/dL 8.5-10.1 [facility] Serum or plasma creatinine m easurement (mass/volume)Ordered By: Dr. Hayes on 08-12-2022 Creatinine [Mass/Vol] 1.19 mg/dL 0.70-1.30 [facility] Comment on above: The validity of the calculated GFR & GFRAA in patients over 70 years has not been determined. Clinical correlation is essential. Serum or plasma urea nitroge n measurement (mass/volume)Ordered By: Dr. Hayes on 08-12-2022 Urea nitrogen [Mass/Vol] 19 mg/dL 7-18 [facility] Thin prep Papanicolaou smear with manual screeningOrdered By: Dr. Hayes on 08-12-2022 Thin prep Papanicolaou smear with manual screening 19 U/L 15-37 [facility] Thin prep Papanicolaou smear with manual screening 6 5-15 [facility] Absolute lymphocyte counton 04-01-2022 Lymphocytes Auto (Unsp spec) [#/Vol] 1.24 10*3/uL 0.83-4.51 [facility] Work Phone: Basophil percentageon 2021 Basophils/100 WBC (Bld) 0.3 % 0-1 [facility] Work Phone: Bilirubin [Mass/Vol] 1.50 mg/dL 0.20-1.00 [facility] Work Phone: Comment on above: For patients on eltr ombopag therapy, use of [place] TBIL is not recommended. Chloride [Moles/Vol] 110 mmol/L 98-107 [facility] Work Phone: Eosinophils/100 WBC (Bld) 1.0 % 0-5 [facility] Work Phone: Glucose [Mass/Vol] 103 mg/dL 74-106 [facility] Work Phone: Comment on above: Fasting Glucose resu lt from 100 to 125 mg/dL suggests IMPAIRED HOMEOSTASIS per A.D.A. criteria. Neutrophils (Bld) [#/Vol] 6.8 10*3/uL 2.0-7.7 [facility] Work Phone: Neutrophils/100 WBC (Bld) 78.0 % 47-70 [facility] Work Phone: Potassium [Moles/Vol] 4.0 mmol/L 3.5-5.1 [facility] Work Phone: Protein [Mass/Vol] 7.3 g/dL 6.4-8.2 [facility] Work Phone: Sodium [Moles/Vol] 143 mmol/L 136-145 [facility] Work Phone: WBC (Bld) [#/Vol] 8.7 10*3/uL 4.4-11.0 [facility] Work Phone: Blood erythrocytes count (nu mber/volume)on 04-01-2022 RBC (Bld) [#/Vol] 4.28 10*6/uL 4.6-6.2 [facility]: Blood hemoglobin measurement (mass/volume)on 04-01-2022 Hemoglobin (Bld) [Mass/Vol] 12.9 g/dL 13.0-16.5 [facility] Work Phone: Blood lymphocytes/100 leukoc yteson 04-01-2022 Lymphocytes/100 WBC (Bld) 14.3 % 19-41 [facility] Work Phone: Blood monocytes/100 leukocyt eson 04-01-2022 Monocytes/100 WBC (Bld) 6.2 % 0-10 [facility] Work Phone: Blood platelet mean volumeon 04-01-2022 Platelet mean volume (Bld) [Entitic vol] 9.8 fL 6.2-12.0 [facility] Work Phone: Determination of erythrocyte mean corpuscular volume (MCV)on 04-01-2022 MCV (RBC) [Entitic vol] 89.7 fL 80-94 [facility] Work Phone: Direct bilirubinon 2 Bilirubin.direct [Mass/Vol] 0.32 mg/dL 0.00-0.30 [facility] Work Phone: Hematocrit Auto (Bld) [Volum e fraction]on 04-01-2022 Hematocrit (Bld) [Volume fraction] 38.4 % 40-54 [facility] Work Phone: Iron measurement (mass/mass) on 04-01-2022 Iron (Unsp spec) [Mass/Mass] 55 ug/dL 65-175 [facility] Work Phone: Laboratory - Chemistry and C hemistry - challengeon 04-01-2022 ALP [Catalytic activity/Vol] 99 U/L 45-117 [facility] Work Phone: ALT [Catalytic activity/Vol] 24 U/L 16-61 [facility] Work Phone: CO2 [Moles/Vol] 30.0 mmol/L 21.0-32.0 [facility] Work Phone: Globulin (S) [Mass/Vol] 3.6 g/dL 2.2-4.2 [facility] Work Phone: Urea nitrogen/Creatinine [Mass ratio] 17.0 mg/mg 10-20 [facility] Work Phone: Laboratory - Hematology and Cell countson 04-01-2022 Erythrocyte distribution width (RBC) [Entitic vol] 46.5 fL 35.1-43.9 [facility] Work Phone: Erythrocyte distribution width (RBC) [Ratio] 14.2 % 11.6-14.6 [facility] Work Phone: Immature granulocytes/100 WBC (Bld) 0.200 % 0.0-0.9 [facility] Work Phone: Comment on above: IG% - Immature Granu locytes (promyelocytes, myelocytes and metamyelocytes) > 1% indicates that a LEFT SHIFT is Present. MCH (RBC) [Entitic mass] 30.1 pg 27.0-32.0 [facility] Work Phone: Nucleated RBC/100 WBC (Bld) [Ratio] 0 % 0-5 [facility] Work Phone: MCHC Auto (RBC) [Mass/Vol]on 04-01-2022 MCHC (RBC) [Mass/Vol] 33.6 g/dL 32-36 [facility] Work Phone: No Panel Informationon 04-01 Endomysial IgA Antibody Negative Negative [facility] Work Phone: Estimated GFR (MDRD) Amer 68 mL/min >60 [facility] Work Phone: Comment on above: GFR Calc Estimated GFR (MDRD) Non-Af Amer 56 mL/min >60 [facility] Work Phone: Comment on above: Non- GFR Calc Total Iron Binding Capacity 345 ug/dL 250-450 [facility] Work Phone: Platelets bldon 04-01-2022 Platelets (Bld) [#/Vol] 243 10*3/uL 150-450 [facility] Work Phone: Serum IgA measurement (units /volume)on 04-01-2022 IgA Qn (S) 325 mg/dL 61-437 [facility] Work Phone: Comment on above: Performed at: [address] [id number] Director: Terrance Ashford PhD, Phone: [phone] Serum or plasma albumin renu urement (mass/volume)on 04-01-2022 Albumin [Mass/Vol] 3.7 g/dL 3.2-5.0 [facility] Work Phone: Serum or plasma albumin/glob ulin mass ratioon 04-01-2022 Albumin/Globulin [Mass ratio] 1.0 {ratio} 0.9-2.4 [facility] Work Phone: Serum or plasma calcium renu urement (mass/volume)on 04-01-2022 Calcium [Mass/Vol] 9.0 mg/dL 8.5-10.1 [facility] Work Phone: Serum or plasma creatinine m easurement (mass/volume)on 04-01-2022 Creatinine [Mass/Vol] 1.35 mg/dL 0.70-1.30 [facility] Work Phone: Comment on above: The validity of the calculated GFR & GFRAA in patients over 70 years has not been determined. Clinical correlation is essential. Serum or plasma ferritin ellen surement (mass/volume)on 04-01-2022 Ferritin [Mass/Vol] 260 ng/mL 26-388 [facility] Work Phone: Serum or plasma iron saturat ion measurement (mass fraction)on 04-01-2022 Iron saturation [Mass fraction] 15.9 % 15.0-55.0 [facility] Work Phone: Serum or plasma urea nitroge n measurement (mass/volume)on 04-01-2022 Urea nitrogen [Mass/Vol] 23 mg/dL 7-18 [facility] Work Phone: Serum tissue transglutaminas e IgA antibody assay (units/volume)on 04-01-2022 tTG IgA Qn (S) <2 U/mL 0-3 [facility] Work Phone: Comment on above: Negative 0 - 3 Weak Positive 4 - 10 Positive >10 Tissue Transglutaminase (tTG) has been identified as the endomysial antigen. Studies have demonstr- ated that endomysial IgA antibodies have over 99% specificity for gluten sensitive enteropathy. Thin prep Papanicolaou smear with manual screeningon 04-01-2022 Thin prep Papanicolaou smear with manual screening 12 U/L 15-37 [facility] Work Phone: Thin prep Papanicolaou smear with manual screening 3 5-15 [facility] Work Phone: Full PFT Study With Bronchod ilatoron 12-30-2021 Name: SHANNON OLSON PatientID: [id number] Gender: Male Birthdate: 1955 Study Date: 12/30/2021 8:51:41 AM Age: 66 Race: White or Height: 74.0 in, 188.0 cm Weight: 290.0 lbs, 131.8 kg Smoke Status: Never Pack Years: Tbco Prod: Cigarettes Ordering Physician: [id number] Interpreting Physician: [id number] Marine Operations Coordinator: NAM Renner Location: [facility] Diagnosis: COPD W/ ASTHMA; HX COVID 2020 Spirometry Units Pred PreDrug Pre%Pred Post Post%Pred %Change FVC L,btps 5.26 3.61 69. 3.66 70. 1. FEV1 L,btps 3.93 2.68 68. 2.93 75. 9. FEV1/FVC (%) % 74. 74. 100. 80. 108. 8. XCH01-68% L/s 3.06 2.02 66. 2.94 96. 45. 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 HOME MEDS: NO CURRENT BD. AMIODARONE. RETESTED AFTER 4 PUFFS ALBUTEROL. SPACER AND INSTRUCTIONS GIVEN. 61190- PRE/[place] [address]- DLCO 83895- FRC GAS PHYSICIAN INTERPRETATION No obstruction No BD response Borderline restriction Air trapping by elevated RV/TLC ratio Mildly reduced diffusion [facility] Franck, Dwayne B, MD - 12/30/2021 Name: SHANNON OLSON PatientID: [id number] Gender: Male Birthdate: 1955 Study Date: 12/30/2021 8:51:41 AM Age: 66 Race: White or Height: 74.0 in, 188.0 cm Weight: 290.0 lbs, 131.8 kg Smoke Status: Never Pack Years: Tbco Prod: Cigarettes Ordering Physician: [id number] Interpreting Physician: [id number] Marine Operations Coordinator: NAM Testing Location: [facility] Diagnosis: COPD W/ ASTHMA; HX COVID 2020 Spirometry Units Pred PreDrug Pre%Pred Post Post%Pred %Change FVC L,btps 5.26 3.61 69. 3.66 70. 1. FEV1 L,btps 3.93 2.68 68. 2.93 75. 9. FEV1/FVC (%) % 74. 74. 100. 80. 108. 8. AVU65-44% L/s 3.06 2.02 66. 2.94 96. 45. [...] /MIP cmH2O -74.02 PEmax /MEP cmH2O 119.94 [employer]ATTLE C[employer] WORKER NOTES Tests to perform: 1785284 - FULL PFT STUDY WITH BRONCHODILATOR. HOME MEDS: NO CURRENT BD. AMIODARONE. RETESTED AFTER 4 PUFFS ALBUTEROL. SPACER AND INSTRUCTIONS GIVEN. 82322- PRE/[place] [address]- DLCO 80510- FRC GAS PHYSICIAN INTERPRETATION No obstruction No BD response Borderline restriction Air trapping by elevated RV/TLC ratio Mildly reduced diffusion [facility] Work Phone: Full PFT Study With Bronchod ilatorOrdered By: Dwayne Juárez on 12-30-2021 [facility] Work Phone: ACT,Whole Bloodon 12-02-2021 ACT,Whole Blood 163 s High 90-134 [facility] Comment on above: Result Comment: ACTB O Performed by [employer] ID: [id number] [place], [place] ACT testing is not intended for patients taking aprotonin, patients with hematocrits of <20% or >55%, patients using other types of anticoagulation medications, and patients with Lupus Anticoagulant. Performed By: #### A CTBO #### [facility] [address] [place] [address] Basic Metabolic Panelon - Anion gap [Moles/Vol] 12 mmol/L Normal 3-13 [facility] Comment on above: Performed By: #### B MP3, HEMOG #### [facility] [address] [place] [address] Calcium [Mass/Vol] 9.0 mg/dL Normal 8.4-10.4 [facility] Comment on above: Performed By: #### B MP3, HEMOG #### [facility] [address] [place] [address] CO2 [Moles/Vol] 24 mmol/L Normal 22-30 [facility] Comment on above: Performed By: #### B MP3, HEMOG #### [facility] [address] [place] [address] Glucose [Mass/Vol] 122 mg/dL High 70-100 [facility] Comment on above: Performed By: #### B MP3, HEMOG #### [facility] [address] [place] [address] Urea nitrogen [Mass/Vol] 30 mg/dL High 7-17 [facility] Comment on above: Performed By: #### B MP3, HEMOG #### [facility] [address] [place] [address] Creatinine [Mass/Vol] 1.24 mg/dL Normal 0.52-1.25 [facility] Comment on above: Performed By: #### B MP3, HEMOG #### [facility] [address] [place] [address] GFR/1.73 sq M.predicted among blacks MDRD (S/P/Bld) [Vol rate/Area] 69.7 mL/min/{1.73_m2} Normal >60 [facility] Comment on above: Performed By: #### B MP3, HEMOG #### [facility] [address] [place] [address] GFR/1.73 sq M.predicted among non-blacks MDRD (S/P/Bld) [Vol rate/Area] 60.2 mL/min/{1.73_m2} Normal >60 [facility] Comment on above: Result Comment: KDIG O [...] Performed By: #### B MP3, HEMOG #### [address] Potassium [Moles/Vol] 4.1 mmol/L Normal 3.5-5.1 [facility] Comment on above: Performed By: #### B MP3, HEMOG #### [address] Sodium [Moles/Vol] 143 mmol/L Normal 135-145 [facility] Comment on above: Performed By: #### B MP3, HEMOG #### [address] Chloride [Moles/Vol] 107 mmol/L Normal 98-107 [facility] Comment on above: Performed By: #### B MP3, HEMOG #### [address] Anion gap [Moles/Vol] 12 mmol/L 3 - 13 mmol/L [facility] Calcium [Mass/Vol] 9.0 mg/dL 8.4 - 10. 4 mg/dL [facility] Chloride [Moles/Vol] 107 mmol/L 98 - 10 7 mmol/L [facility] CO2 [Moles/Vol] 24 mmol/L 22 - 30 mmol/L [facility] Creatinine [Mass/Vol] 1.24 mg/dL 0.52 - 1.25 mg/dL [facility] EGFR IF NonAfrican Latvian 60.2 mL/min >60 [facility] Comment on above: KDIGO guidelines pro vide [...] 30 mg/dL High 7 - 17 mg/dL [facility] Test Performed by [id number] [place] [address] LAB [facility] CARDIAC CATH NURSING LOGon 0 12-01-2021 Ordered by an unspec ified provider. [facility] CBCon 12-01-2021 Hematocrit (Bld) [Volume fraction] 39.8 % Low 40.0 - 52.0 % [facility] Hemoglobin (Bld) [Mass/Vol] 13.1 g/dL 13.0 - 18.0 g/dL [facility] Interpretation and review of laboratory results Abnormal [...] - 10.7 10*3/uL [facility] Test Performed by [id number] [place] [address] LAB [facility] EKG 12 leadon 12-01-2021 [facility] Test Date: 2021-12-01 Pat Name: SHANNON OLSON Department: [facility] Room: [facility] Gender: M Marine Operations Coordinator: RAFA REYESB: 1955 Requested By: ZOIE GONZALES Order Number: [id number] Reading MD: Edward Louie Measurements Intervals [place] Rate: 53 P: 29 DC: 205 QRS: -12 QRSD: 151 T: 129 QT: 497 QTc: 466 Interpretive Statements Sinus bradycardia LEFT BUNDLE BRANCH BLOCK consider prior anterior infarction Electronically Signed On 12-01-2021 15:28:43 EDT by Edward Louie [facility] Edward Louie MD - 12/01/2021 [facility] Test Date: 2021-12-01 Pat Name: SHANNON OLSON [facility]: [facility] [facility] Room: [id number] Gender: M Marine Operations Coordinator: RAFA : 1955 Requested By: ZOIE GONZALES Order Number: [id number] Reading : Edward Louie Measurements Intervals [place] Rate: 53 P: 29 DC: 205 QRS: -12 QRSD: 151 T: 129 QT: 497 QTc: 466 Interpretive Statements Sinus bradycardia LEFT BUNDLE BRANCH BLOCK consider prior anterior infarction Electronically Signed On 12-01-2021 15:28:43 EDT by Edward Louie [facility] Work Phone: [facility] Work Phone: Electrocardiogram, 12-leadon 12-01-2021 [facility] Test Date: 2021-12-01 Pat Name: SHANNON OLSON Department[facility] Room: [id number] Gender: M Marine Operations Coordinator: RAFA : 1955 Requested By: MILAGRO JAIMES Order Number: [id number] Reading : Edward Louie Measurements Intervals [place] Rate: 50 P: 16 DC: 182 QRS: 14 QRSD: 151 T: 148 QT: 508 QTc: 465 Interpretive Statements Sinus bradycardia Left bundle branch block Consider anterolateral infarct Electronically Signed On 12-01-2021 15:14:17 EDT by Edward Louie [facility] Edward Hawkins MD - 12/01/2021 [facility] Test Date: 2021-12-01 Pat Name: SHANNON OLSON Department: [facility] Room: [id number] Gender: M Marine Operations Coordinator: RAFA : 1955 Requested By: MILAGRO JAIMES Order Number: [id number] Reading MD: Edward Louie Measurements Intervals [place] Rate: 50 P: 16 DC: 182 QRS: 14 QRSD: 151 T: 148 QT: 508 QTc: 465 Interpretive Statements Sinus bradycardia Left bundle branch block Consider anterolateral infarct Electronically Signed On 12-01-2021 15:14:17 EDT by Edward Louie [facility] Work Phone: Electrocardiogram, 12-leadOr dered By: Edward Louie on 12-01-2021 [facility] Work Phone: Hemogramon 12-01-2021 Erythrocyte distribution width (RBC) [Ratio] 14.5 % Normal 11.5-14.5 [facility] Comment on above: Performed By: #### B MP3, HEMOG #### [facility] [address] [place] [address] Hematocrit (Bld) [Volume fraction] 39.8 % Low 40.0-52.0 [facility] Comment on above: Performed By: #### B MP3, HEMOG #### [facility] [address] [place] [address] Hemoglobin (Bld) [Mass/Vol] 13.1 g/dL Normal 13.0-18.0 [facility] Comment on above: Performed By: #### B MP3, HEMOG #### [facility] [address] [place], [place] MCH (RBC) [Entitic mass] 29.7 pg Normal 26.0-34.0 [facility] Comment on above: Performed By: #### B MP3, HEMOG #### [facility] [address] [place], [place] MCHC 32.9 % Normal 32.0-36.0 [facility] Comment on above: Performed By: #### B MP3, HEMOG #### [address] [place] [place], [place] MCV (RBC) [Entitic vol] 90.3 fL Normal 80.0-98.0 [facility] Comment on above: Performed By: #### B MP3, HEMOG #### [address] [place] [place], [place] Platelet mean volume (Bld) [Entitic vol] 7.5 fL Normal 7.4-12.4 [facility] Comment on above: Result Comment: MPV is a calculated measurement using platelet volume ratio. Performed By: #### B MP3, HEMOG #### [address] [place] [address] [place], [place] Platelets (Bld) [#/Vol] 251 10*3/uL Normal 140-440 [facility] Comment on above: Performed By: #### B MP3, HEMOG #### [facility] [address] [place], [place] RBC (Bld) [#/Vol] 4.41 10*6/uL Normal 4.40-5.90 [facility] Comment on above: Performed By: #### B MP3, HEMOG #### [facility] [address] [place], [place] WBC (Bld) [#/Vol] 6.8 10*3/uL Normal 3.6-10.7 [facility] Comment on above: Performed By: #### B MP3, HEMOG #### [address] [place] [address] Basophil percentageon 2021 Bilirubin [Mass/Vol] 1.30 mg/dL 0.20-1.00 [facility] Work Phone: Comment on above: For patients on eltr ombopag therapy, use of Dimension [place] TBIL is not recommended. Chloride [Moles/Vol] 110 mmol/L 98-107 [facility] Work Phone: Glucose [Mass/Vol] 107 mg/dL 74-106 [facility] Work Phone: Comment on above: Fasting Glucose resu lt from 100 to 125 mg/dL suggests IMPAIRED HOMEOSTASIS per A.D.A. criteria. Potassium [Moles/Vol] 4.0 mmol/L 3.5-5.1 [facility] Work Phone: Protein [Mass/Vol] 7.3 g/dL 6.4-8.2 [facility] Work Phone: Sodium [Moles/Vol] 139 mmol/L 136-145 [facility] Work Phone: WBC (Bld) [#/Vol] 7.8 10*3/uL 4.4-11.0 [facility] Work Phone: Blood erythrocytes count (nu mber/volume)on 10-31-2021 RBC (Bld) [#/Vol] 4.25 10*6/uL 4.6-6.2 [facility] Work Phone: Blood hemoglobin measurement (mass/volume)on 10-31-2021 Hemoglobin (Bld) [Mass/Vol] 12.7 g/dL 13.0-16.5 [facility] Work Phone: Blood platelet mean volumeon 10-31-2021 Platelet mean volume (Bld) [Entitic vol] 9.8 fL 6.2-12.0 [facility] Work Phone: Determination of erythrocyte mean corpuscular volume (MCV)on 10-31-2021 MCV (RBC) [Entitic vol] 91.3 fL 80-94 [facility] Work Phone: Hematocrit Auto (Bld) [Volum e fraction]on 10-31-2021 Hematocrit (Bld) [Volume fraction] 38.8 % 40-54 [facility] Work Phone: Laboratory - Chemistry and C hemistry - challengeon 10-31-2021 ALP [Catalytic activity/Vol] 100 U/L 45-117 [facility] Work Phone: ALT [Catalytic activity/Vol] 43 U/L 16-61 [facility] Work Phone: CO2 [Moles/Vol] 26.0 mmol/L 21.0-32.0 [facility] Work Phone: Globulin (S) [Mass/Vol] 3.7 g/dL 2.2-4.2 [facility] Work Phone: Urea nitrogen/Creatinine [Mass ratio] 15.9 mg/mg 10-20 [facility] Work Phone: Laboratory - Hematology and Cell countson 10-31-2021 Erythrocyte distribution width (RBC) [Entitic vol] 46.2 fL 35.1-43.9 [facility] Work Phone: Erythrocyte distribution width (RBC) [Ratio] 13.8 % 11.6-14.6 [facility] Work Phone: MCH (RBC) [Entitic mass] 29.9 pg 27.0-32.0 [facility] Work Phone: MCHC Auto (RBC) [Mass/Vol]on 10-31-2021 MCHC (RBC) [Mass/Vol] 32.7 g/dL 32-36 [facility] Work Phone: No Panel Informationon 10-31 Estimated GFR (MDRD) Amer 89 mL/min >60 [facility] Work Phone: Comment on above: GFR Calc Estimated GFR (MDRD) Non-Af Amer 74 mL/min >60 [facility] Work Phone: Comment on above: Non- GFR Calc Thyroid Stimulating Hormone (TSH) 1.21 uIU/mL 0.358-3.74 [facility] Work Phone: Platelets bldon 10-31-2021 Platelets (Bld) [#/Vol] 233 10*3/uL 150-450 [facility] Work Phone: Serum or plasma albumin renu urement (mass/volume)on 10-31-2021 Albumin [Mass/Vol] 3.6 g/dL 3.2-5.0 [facility] Work Phone: Serum or plasma albumin/glob ulin mass ratioon 10-31-2021 Albumin/Globulin [Mass ratio] 1.0 {ratio} 0.9-2.4 [facility] Work Phone: Serum or plasma calcium renu urement (mass/volume)on 10-31-2021 Calcium [Mass/Vol] 8.5 mg/dL 8.5-10.1 [facility] Work Phone: Serum or plasma creatinine m easurement (mass/volume)on 10-31-2021 Creatinine [Mass/Vol] 1.07 mg/dL 0.70-1.30 [facility] Work Phone: Comment on above: The validity of the calculated GFR & GFRAA in patients over 70 years has not been determined. Clinical correlation is essential. Serum or plasma urea nitroge n measurement (mass/volume)on 10-31-2021 Urea nitrogen [Mass/Vol] 17 mg/dL 7-18 [facility] Work Phone: Thin prep Papanicolaou smear with manual screeningon 10-31-2021 Thin prep Papanicolaou smear with manual screening 19 U/L 15-37 [facility] Work Phone: Thin prep Papanicolaou smear with manual screening 3 5-15 [facility] Work Phone: No Panel Informationon 09-10 Troponin I High Sensitivity 294 pg/mL 3.0-78.0 [facility] Work Phone: Comment on above: Critical Result(s) C alled at: 01:34:51 09/10/2021 by: MANUEL Larios RN ER. Results read back by same. Please Note: New Test Units and Gender Specific Reference Ranges. For more information see Policy Stat Procedure [place] High Sensitivity Troponin (TNIH) and attachments. Absolute lymphocyte counton 09-09-2021 Lymphocytes Auto (Unsp spec) [#/Vol] 2.24 10*3/uL 0.83-4.51 [facility] Work Phone: Basophil percentageon 2021 Basophils/100 WBC (Bld) 0.5 % 0-1 [facility] Work Phone: Chloride [Moles/Vol] 108 mmol/L 98-107 [facility] Work Phone: Eosinophils/100 WBC (Bld) 0.8 % 0-5 [facility] Work Phone: Glucose [Mass/Vol] 151 mg/dL 74-106 [facility] Work Phone: Comment on above: Fasting Glucose resu lt greater than or equal to 126 mg/dL suggests DIABETES MELLITUS per A.D.A. criteria. Neutrophils (Bld) [#/Vol] 6.5 10*3/uL 2.0-7.7 [facility] Work Phone: Neutrophils/100 WBC (Bld) 67.9 % 47-70 [facility] Work Phone: Potassium [Moles/Vol] 3.9 mmol/L 3.5-5.1 [facility] Work Phone: Sodium [Moles/Vol] 142 mmol/L 136-145 [facility] Work Phone: WBC (Bld) [#/Vol] 9.5 10*3/uL 4.4-11.0 [facility] Work Phone: Blood erythrocytes count (nu mber/volume)on 09-09-2021 RBC (Bld) [#/Vol] 4.43 10*6/uL 4.6-6.2 [facility] Work Phone: Blood hemoglobin measurement (mass/volume)on 09-09-2021 Hemoglobin (Bld) [Mass/Vol] 13.3 g/dL 13.0-16.5 [facility] Work Phone: Blood lymphocytes/100 leukoc yteson 09-09-2021 Lymphocytes/100 WBC (Bld) 23.5 % 19-41 [facility] Work Phone: Blood monocytes/100 leukocyt eson 09-09-2021 Monocytes/100 WBC (Bld) 6.9 % 0-10 [facility] Work Phone: Blood platelet mean volumeon 09-09-2021 Platelet mean volume (Bld) [Entitic vol] 9.9 fL 6.2-12.0 [facility] Work Phone: Determination of erythrocyte mean corpuscular volume (MCV)on 09-09-2021 MCV (RBC) [Entitic vol] 91.0 fL 80-94 [facility] Work Phone: Glucose Glucometer (dC) [M ass/Vol]on 09-09-2021 Glucose [Mass/Vol] 149 mg/dL 74-106 [facility] Work Phone: Comment on above: MANAGEMENT OF PATIEN T CARE PER NURSING PROTOCOL Hematocrit Auto (Bld) [Volum e fraction]on 09-09-2021 Hematocrit (Bld) [Volume fraction] 40.3 % 40-54 [facility] Work Phone: Laboratory - Chemistry and C hemistry - challengeon 09-09-2021 CO2 [Moles/Vol] 31.0 mmol/L 21.0-32.0 [facility] Work Phone: Urea nitrogen/Creatinine [Mass ratio] 18.5 mg/mg 10-20 [facility] Work Phone: Laboratory - Hematology and Cell countson 09-09-2021 Erythrocyte distribution width (RBC) [Entitic vol] 43.8 fL 35.1-43.9 [facility] Work Phone: Erythrocyte distribution width (RBC) [Ratio] 13.2 % 11.6-14.6 [facility] Work Phone: Immature granulocytes/100 WBC (Bld) 0.400 % 0.0-0.9 [facility] Work Phone: Comment on above: IG% - Immature Granu locytes (promyelocytes, myelocytes and metamyelocytes) > 1% indicates that a LEFT SHIFT is Present. MCH (RBC) [Entitic mass] 30.0 pg 27.0-32.0 [facility] Work Phone: Nucleated RBC/100 WBC (Bld) [Ratio] 0 % 0-5 [facility] Work Phone: MCHC Auto (RBC) [Mass/Vol]on 09-09-2021 MCHC (RBC) [Mass/Vol] 33.0 g/dL 32-36 [facility] Work Phone: No Panel Informationon 09-09 Estimated Creatinine Clearance Calc 51.88 ml/min [facility] Work Phone: Estimated GFR (MDRD) Amer 57 mL/min >60 [facility] Work Phone: Comment on above: GFR Calc Estimated GFR (MDRD) Non-Af Amer 47 mL/min >60 [facility] Work Phone: Comment on above: Non- GFR Calc Platelets bldon 09-09-2021 Platelets (Bld) [#/Vol] 264 10*3/uL 150-450 [facility] Work Phone: Serum or plasma calcium renu urement (mass/volume)on 09-09-2021 Calcium [Mass/Vol] 9.2 mg/dL 8.5-10.1 [facility] Work Phone: Serum or plasma creatinine m easurement (mass/volume)on 09-09-2021 Creatinine [Mass/Vol] 1.57 mg/dL 0.70-1.30 [facility] Work Phone: Comment on above: The validity of the calculated GFR & GFRAA in patients over 70 years has not been determined. Clinical correlation is essential. Serum or plasma urea nitroge n measurement (mass/volume)on 09-09-2021 Urea nitrogen [Mass/Vol] 29 mg/dL 7-18 [facility] Work Phone: Thin prep Papanicolaou smear with manual screeningon 09-09-2021 Thin prep Papanicolaou smear with manual screening 3 5-15 [facility] Work Phone: Basophil percentageon 2021 Chloride [Moles/Vol] 111 mmol/L 98-107 [facility] Work Phone: Cholesterol [Mass/Vol] 144 mg/dL <200 [facility] Work Phone: Comment on above: <200 mg/dL Desirable 200-240 mg/dL Borderline >240 mg/dL High Risk Glucose [Mass/Vol] 106 mg/dL 74-106 [facility] Work Phone: Comment on above: Fasting Glucose resu lt from 100 to 125 mg/dL suggests IMPAIRED HOMEOSTASIS per A.D.A. criteria. Potassium [Moles/Vol] 4.4 mmol/L 3.5-5.1 [facility] Work Phone: Sodium [Moles/Vol] 143 mmol/L 136-145 [facility] Work Phone: Triglyceride [Mass/Vol] 132 mg/dL [facility] Work Phone: Comment on above: The drugs N-Acetylcy steine and Metamizole may falsely depress this assay.Serum Triglycerides Reference Interval Normal <150 mg/dL Borderline high 150 - 199 mg/dL High 200 - 499 mg/dL Very High > or = 500 mg/dL WBC (Bld) [#/Vol] 9.0 10*3/uL 4.4-11.0 [facility] Work Phone: Blood erythrocytes count (nu mber/volume)on 08-01-2021 RBC (Bld) [#/Vol] 4.49 10*6/uL 4.6-6.2 [facility] Work Phone: Blood hemoglobin measurement (mass/volume)on 08-01-2021 Hemoglobin (Bld) [Mass/Vol] 13.8 g/dL 13.0-16.5 [facility] Work Phone: Blood platelet mean volumeon 08-01-2021 Platelet mean volume (Bld) [Entitic vol] 10.2 fL 6.2-12.0 [facility] Work Phone: Determination of erythrocyte mean corpuscular volume (MCV)on 08-01-2021 MCV (RBC) [Entitic vol] 93.1 fL 80-94 [facility] Work Phone: Hematocrit Auto (Bld) [Volum e fraction]on 08-01-2021 Hematocrit (Bld) [Volume fraction] 41.8 % 40-54 [facility] Work Phone: Laboratory - Chemistry and C hemistry - challengeon 08-01-2021 CO2 [Moles/Vol] 29.0 mmol/L 21.0-32.0 [facility] Work Phone: Urea nitrogen/Creatinine [Mass ratio] 19.4 mg/mg 10-20 [facility] Work Phone: Laboratory - Hematology and Cell countson 08-01-2021 Erythrocyte distribution width (RBC) [Entitic vol] 45.3 fL 35.1-43.9 [facility] Work Phone: Erythrocyte distribution width (RBC) [Ratio] 13.2 % 11.6-14.6 [facility] Work Phone: MCH (RBC) [Entitic mass] 30.7 pg 27.0-32.0 [facility] Work Phone: MCHC Auto (RBC) [Mass/Vol]on 08-01-2021 MCHC (RBC) [Mass/Vol] 33.0 g/dL 32-36 [facility] Work Phone: No Panel Informationon 08-01 Estimated GFR (MDRD) Amer 58 mL/min >60 [facility] Work Phone: Comment on above: GFR Calc Estimated GFR (MDRD) Non-Af Amer 48 mL/min >60 [facility] Work Phone: Comment on above: Non- GFR Calc Platelets bldon 08-01-2021 Platelets (Bld) [#/Vol] 276 10*3/uL 150-450 [facility] Work Phone: Serum or plasma calcium renu urement (mass/volume)on 08-01-2021 Calcium [Mass/Vol] 9.3 mg/dL 8.5-10.1 [facility] Work Phone: Serum or plasma cholesterol in HDL measurement (mass/volume)on 08-01-2021 Cholesterol in HDL [Mass/Vol] 49 mg/dL [facility] Work Phone: Comment on above: The drugs N-Acetylcy steine and Metamizole may falsely depress this assay. Reference Range HDL <40 mg/dL Low HDL Cholesterol HDL >or= 60 mg/dL High HDL Cholesterol Serum or plasma cholesterol in VLDL measurement (mass/volume)on 08-01-2021 Cholesterol in VLDL [Mass/Vol] 26 mg/dL 5-40 [facility] Work Phone: Serum or plasma creatinine m easurement (mass/volume)on 08-01-2021 Creatinine [Mass/Vol] 1.55 mg/dL 0.70-1.30 [facility] Work Phone: Comment on above: The validity of the calculated GFR & GFRAA in patients over 70 years has not been determined. Clinical correlation is essential. Serum or plasma low density lipoprotein (LDL) cholesterol measurement (mass/volume)on 08-01-2021 Cholesterol in LDL [Mass/Vol] 69 mg/dL 0-130 [facility] Work Phone: Serum or plasma urea nitroge n measurement (mass/volume)on 08-01-2021 Urea nitrogen [Mass/Vol] 30 mg/dL 7-18 [facility] Work Phone: Thin prep Papanicolaou smear with manual screeningon 08-01-2021 Thin prep Papanicolaou smear with manual screening 3 5-15 [facility] Work Phone: Basophil percentageon 2021 Creatinine [Mass/Vol] 1.2 mg/dL 0.70-1.30 [facility] Work Phone: No Panel Informationon 07-02 Bedside Estimated GFR (eGFR) > 60.0000 mL/min >60 [facility] Work Phone: ACT,Whole Bloodon 03-18-2021 ACT,Whole Blood 207 s High 90-134 [facility] Comment on above: Result Comment: ACTB O Performed by [employer] ID: [id number] [place], [place] ACT testing is not intended for patients taking aprotonin, patients with hematocrits of <20% or >55%, patients using other types of anticoagulation medications, and patients with Lupus Anticoagulant. Performed By: #### A CTBO #### [facility] ACT,Whole Blood 219 s High 90-134 [facility] Comment on above: Result Comment: ACTB O Performed by [employer] ID: [id number] [place], [place] ACT testing is not intended for patients taking aprotonin, patients with hematocrits of <20% or >55%, patients using other types of anticoagulation medications, and patients with Lupus Anticoagulant. Performed By: #### A CTBO #### [facility] [address] [employer] [address] [place] [address] Activated clotting timeOrder ed By: Zoie Gonzales on 03-18-2021 Activated Clotting Time 219 s High 90 - 134 s [employer] Work Phone: Comment on above: ACTBO Performed by Yapt[employer] ID: [id number] [place], [place] ACT testing is not intended for patients taking aprotonin, patients with hematocrits of <20% or >55%, patients using other types of anticoagulation medications, and patients with Lupus Anticoagulant. Interpretation and review of laboratory results Abnormal [facility] Work Phone: Test Performed by [facility], [facility] [place] [address] [employer] Work Phone: [phone] [facility] Work Phone: Activated Clotting Time 207 s High 90 - 134 s [employer] [facility] Work Phone: Comment on above: ACTBO Performed by [employer] EliteCLIA ID: [id number] [facility] [place] ACT testing is not intended for patients taking aprotonin, patients with hematocrits of <20% or >55%, patients using other types of anticoagulation medications, and patients with Lupus Anticoagulant. Interpretation and review of laboratory results Abnormal [employer] [facility] Work Phone: Test Performed by [facility], [address] [place] [id number] [facility] Work Phone: [facility] Work Phone: CBCOrdered By: Milagro escobar on 03-18-2021 Hematocrit (Bld) [Volume fraction] 35.6 % Low 40.0 - 52.0 % [facility] Phone: Hemoglobin.gastrointes tinal spec 1 Ql (Stl) 12.1 g/dL Low 13.0 - 18.0 g/dL [facility] Work Phone: Interpretation and review of laboratory results Abnormal [employer] [facility] Work Phone: MCH (RBC) [Entitic mass] 30.5 pg 26.0 - 34.0 pg [employer] [facility] Work Phone: MCHC (RBC) [Mass/Vol] 34.2 % 32.0 - 36.0 % [facility] Work Phone: MCV (RBC) [Entitic vol] 89.3 fL 80.0 - 98.0 fL [employer] [facility] Work Phone: Platelet distribution width (Bld) [Ratio] 14.8 % High 11.5 - 14.5 % [employer] [facility] Work Phone: Platelet mean volume (Bld) [Entitic vol] 7.9 fL 7.4 - 10.4 fL [facility] Work Phone: Platelets (Bld) [#/Vol] 241 10*3/uL 140 - 440 10*3/uL [facility] Work Phone: RBC (Bld) [#/Vol] 3.98 10*6/uL Low 4.40 - 5.90 10*6/uL [facility] Work Phone: WBC (Bld) [#/Vol] 8.6 10*3/uL 3.6 - 10.7 10*3/uL [facility] Work Phone: Test Performed by [facility], [address] [place] [address] [facility] Work Phone: [phone] [facility] Work Phone: [phone] Comp Panel with Mg Reflexon 03-18-2021 Calcium [Mass/Vol] 8.4 mg/dL Normal 8.4-10.4 [facility] Comment on above: Performed By: #### C MP3M, HEMOG #### [place] [address] [place], [place] ALP [Catalytic activity/Vol] 83 U/L Normal 38-126 [facility] Comment on above: Performed By: #### C MP3M, HEMOG #### [facility] [address] [place], [place] ALT [Catalytic activity/Vol] 17 U/L Normal 0-49 [facility] Comment on above: Result Comment: The ALT test is performed by an updated assay method. Please note that the reference intervals have been changed and are now sex specific. Performed By: #### C MP3M, HEMOG #### [facility] [address] [place], [place] Anion gap [Moles/Vol] 7 mmol/L Normal 3-13 [facility] Comment on above: Performed By: #### C MP3M, HEMOG #### [facility] [address] [place], [place] AST [Catalytic activity/Vol] 21 U/L Normal 15-46 [facility] Comment on above: Performed By: #### C MP3M, HEMOG #### [facility] [address] [place], [place] Bilirubin [Mass/Vol] 1.0 mg/dL Normal 0.2-1.3 [facility] Comment on above: Performed By: #### C MP3M, HEMOG #### [facility] [address] [place], [place] CO2 [Moles/Vol] 21 mmol/L Low 22-30 [facility] Comment on above: Performed By: #### C MP3M, HEMOG #### [facility] [address] [place], [place] Glucose [Mass/Vol] 114 mg/dL High 70-100 [facility] Comment on above: Performed By: #### C MP3M, HEMOG #### [facility] [address] [place], [place] Protein [Mass/Vol] 6.1 g/dL Low 6.3-8.2 [facility] Comment on above: Performed By: #### C MP3M, HEMOG #### [address] [place], [place] Urea nitrogen [Mass/Vol] 19 mg/dL High 7-17 [facility] Comment on above: Performed By: #### C MP3M, HEMOG #### [facility] [address] [place], [place] Creatinine [Mass/Vol] 0.98 mg/dL Normal 0.52-1.25 [facility] Comment on above: Performed By: #### C MP3M, HEMOG #### [facility] [address] [place], [place] GFR/1.73 sq M.predicted among blacks MDRD (S/P/Bld) [Vol rate/Area] mL/min/{1.73_m2} Normal >60 [facility] Comment on above: Performed By: #### C MP3M, HEMOG #### [facility] [facility] [address], [place] GFR/1.73 sq M.predicted among non-blacks MDRD (S/P/Bld) [Vol rate/Area] 80.4 mL/min/{1.73_m2} Normal >60 [facility] Comment on above: Result Comment: KDIG O [...] Performed By: #### C MP3M, HEMOG #### [place] [address], [place] Albumin [Mass/Vol] 3.4 g/dL Low 3.5-5.0 [facility] Comment on above: Performed By: #### C MP3M, HEMOG #### [place] [address] [place], [place] Chloride [Moles/Vol] 112 mmol/L High 98-107 [facility] Comment on above: Performed By: #### C MP3M, HEMOG #### [place] [address] [place], [place] Potassium [Moles/Vol] 4.0 mmol/L Normal 3.5-5.1 [facility] Comment on above: Performed By: #### C MP3M, HEMOG #### [place] [address] [place], [place] Sodium [Moles/Vol] 139 mmol/L Normal 135-145 [facility] Comment on above: Performed By: #### C MP3M, HEMOG #### [place] [address] [place], [place] Comprehensive Metabolic Pane l w/ Reflex to MGOrdered By: Milagro Jaimes on 03-18-2021 Albumin [Mass/Vol] 3.4 g/dL Low 3.5 - 5.0 g/dL [facility] Work Phone: ALP (Bld) [Catalytic activity/Vol] 83 U/L 38 - 126 U/L [facility] Work Phone: ALT [Catalytic activity/Vol] 17 U/L 0 - 49 U/L [employer] Work Phone: Comment on above: The ALT test is perf ormed by an updated assay method. Please note that the reference intervals have been changed and are now sex specific. Anion gap [Moles/Vol] 7 mmol/L 3 - 13 mmol/L [facility] Work Phone: AST [Catalytic activity/Vol] 21 U/L 15 - 46 U/L [facility] Work Phone: Bilirubin [Mass/Vol] 1.0 mg/dL 0.2 - 1 .3 mg/dL [facility] Work Phone: Calcium [Mass/Vol] 8.4 mg/dL 8.4 - 10. 4 mg/dL [facility] Work Phone: Chloride [Moles/Vol] 112 mmol/L High 98 - 10 7 mmol/L [facility] Work Phone: CO2 [Moles/Vol] 21 mmol/L Low 22 - 30 mmol/L [facility] Work Phone: Creatinine [Mass/Vol] 0.98 mg/dL 0.52 - 1.25 mg/dL [facility] Work Phone: EGFR IF NonAfrican Latvian 80.4 mL/min >60 [facility] Work Phone: Comment on above: KDIGO guidelines [...] 6.1 g/dL Low 6.3 - 8.2 g/dL [facility] Work Phone: GFR/1.73 sq M.predicted among blacks MDRD (S/P/Bld) [Vol rate/Area] mL/min/{1.73_m2} >60 mL/min [facility] Work Phone: [phone] Glucose [Mass/Vol] 114 mg/dL High 70 - 100 mg/dL [facility] Work Phone: [phone] Interpretation and review of laboratory results Abnormal [facility] Work Phone: [phone] Potassium [Moles/Vol] 4.0 mmol/L 3.5 - 5.1 mmol/L [facility] Work Phone: [phone] Sodium [Moles/Vol] 139 mmol/L 135 - 145 mmol/L [facility] Work Phone: [phone] Urea nitrogen (BldV) [Mass/Vol] 19 mg/dL High 7 - 17 mg/dL [facility] Work Phone: [phone] Test Performed by [address] [address] [facility] Work Phone: [phone] [facility] Work Phone: [phone] Hemogramon 03-18-2021 Erythrocyte distribution width (RBC) [Ratio] 14.8 % High 11.5-14.5 [facility] Comment on above: Performed By: #### C MP3Anthony, HEMOG #### [address] [address] Hematocrit (Bld) [Volume fraction] 35.6 % Low 40.0-52.0 [facility] Comment on above: Performed By: #### C MP3M, HEMOG #### [address] [address] Hemoglobin (Bld) [Mass/Vol] 12.1 g/dL Low 13.0-18.0 [facility] Comment on above: Performed By: #### C MP3M, HEMOG #### [facility] [address], [place] MCH (RBC) [Entitic mass] 30.5 pg Normal 26.0-34.0 [facility] Comment on above: Performed By: #### C MP3M, HEMOG #### [facility] [address], [place] MCHC 34.2 % Normal 32.0-36.0 [facility] Comment on above: Performed By: #### C MP3M, HEMOG #### [facility] [address], [place] MCV (RBC) [Entitic vol] 89.3 fL Normal 80.0-98.0 [facility] Comment on above: Performed By: #### C MP3M, HEMOG #### [place] [address] [place], [place] Platelet mean volume (Bld) [Entitic vol] 7.9 fL Normal 7.4-10.4 [facility] Comment on above: Performed By: #### C MP3M, HEMOG #### [place] [address] [place], [place] Platelets (Bld) [#/Vol] 241 10*3/uL Normal 140-440 [facility] Comment on above: Performed By: #### C MP3M, HEMOG #### [facility] [address], [place] RBC (Bld) [#/Vol] 3.98 10*6/uL Low 4.40-5.90 [facility] Comment on above: Performed By: #### C MP3M, HEMOG #### [facility] [address], [place] WBC (Bld) [#/Vol] 8.6 10*3/uL Normal 3.6-10.7 [facility] Comment on above: Performed By: #### C MP3M, HEMOG #### [facility] [address], [place] CARDIAC CATH NURSING LOGOrde red By: 3m Scanning on 03-17-2021 [facility] Work Phone: Catheterization and angiogra phy procedure details panelOrdered By: Zoie Gonzales on 03-17-2021 [facility] CARDIAC CATHETERIZATION Patient: Shannon Olson [...] obtained in mul (more content not included)... [employer] Work Phone: [place], [facility] Incoming Cardiology Results From Anthony/Denae - 03/17/2021 12:23 PM EDT [facility] CARDIAC CATHETERIZATION Patient: Shannon Olson [...] projections. 6. Janeth (more content not included)... 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 Normal [facility] Basic Metabolic Panelon 10-1 Anion gap [Moles/Vol] 7 mmol/L Normal 3-13 [facility] Comment on above: Performed By: #### B MP3, HEMOG #### [facility] [address] [place] [address] Calcium [Mass/Vol] 9.2 mg/dL Normal 8.4-10.4 [facility] Comment on above: Performed By: #### B MP3, HEMOG #### [facility] [address] [place], [place] CO2 [Moles/Vol] 26 mmol/L Normal 22-30 [facility] Comment on above: Performed By: #### B MP3, HEMOG #### [facility] [address], [place] Creatinine [Mass/Vol] 1.26 mg/dL High 0.52-1.25 [facility] Comment on above: Performed By: #### B MP3, HEMOG #### [facility] [address], [place] GFR/1.73 sq M.predicted among blacks MDRD (S/P/Bld) [Vol rate/Area] 68.7 mL/min/{1.73_m2} Normal >60 [facility] Comment on above: Performed By: #### B MP3, HEMOG #### [facility] [address], [place] GFR/1.73 sq M.predicted among non-blacks MDRD (S/P/Bld) [Vol rate/Area] 59.3 mL/min/{1.73_m2} Abnormal >60 [facility] Comment on above: Result Comment: KDIG O [...] Performed By: #### B MP3, HEMOG #### [facility] [address], [place] Glucose [Mass/Vol] 107 mg/dL High 70-100 [facility] Comment on above: Performed By: #### B MP3, HEMOG #### [facility] [address] [place] [address] Urea nitrogen [Mass/Vol] 24 mg/dL High 7-17 [facility] Comment on above: Performed By: #### B MP3, HEMOG #### [facility] [address] [place] [address] Chloride [Moles/Vol] 106 mmol/L Normal 98-107 [facility] Comment on above: Performed By: #### B MP3, HEMOG #### [facility] [address] [place] [address] Potassium [Moles/Vol] 4.1 mmol/L Normal 3.5-5.1 [facility] Comment on above: Result Comment: Slig htly hemolysed, interpret with caution. Performed By: #### B MP3, HEMOG #### [facility] [address], [place] Sodium [Moles/Vol] 140 mmol/L Normal 135-145 [facility] Comment on above: Performed By: #### B MP3, HEMOG #### [facility] [address] [place] [address] Basic Metabolic PanelOrdered By: [place] on 03-10-2021 Anion gap [Moles/Vol] 7 mmol/L 3 - 13 mmol/L [facility] Work Phone: Calcium [Mass/Vol] 9.2 mg/dL 8.4 - 10. 4 mg/dL [facility] Work Phone: Chloride [Moles/Vol] 106 mmol/L 98 - 10 7 mmol/L [facility] Work Phone: [phone] CO2 [Moles/Vol] 26 mmol/L 22 - 30 mmol/L [facility] Work Phone: Creatinine [Mass/Vol] 1.26 mg/dL High 0.52 - 1.25 mg/dL [facility] Work Phone: EGFR IF NonAfrican Latvian 59.3 mL/min Abnormal >60 [facility] Work Phone: Comment on above: KDIGO guidelines [...] rate/Area] 68.7 mL/min/{1.73_m2} >60 [facility] Work Phone: [phone] Glucose [Mass/Vol] 107 mg/dL High 70 - 100 mg/dL [employer] Work Phone: [phone] Interpretation and review of laboratory results Abnormal [employer] Work Phone: Potassium [Moles/Vol] 4.1 mmol/L 3.5 - 5.1 mmol/L [employer] Work Phone: [phone] Comment on above: Slightly hemolysed, interpret with caution. Sodium [Moles/Vol] 140 mmol/L 135 - 145 mmol/L [facility] Work Phone: [phone] Urea nitrogen (BldV) [Mass/Vol] 24 mg/dL High 7 - 17 mg/dL [facility] Work Phone: [phone] Test Performed by [facility], [address] [place] [address] [employer] Work Phone: [employer] Work Phone: [phone] CBCOrdered By: Franec birmingham on 03-10-2021 Hematocrit (Bld) [Volume fraction] 39.6 % Low 40.0 - 52.0 % [employer] Work Phone: [phone] Hemoglobin.gastrointes tinal spec 1 Ql (Stl) 13.3 g/dL 13.0 - 18.0 g/dL [employer] Work Phone: [phone] Interpretation and review of laboratory results Abnormal [facility] Work Phone: [phone]) MCH (RBC) [Entitic mass] 30.3 pg 26.0 - 34.0 pg [employer] Work Phone: [phone] MCHC (RBC) [Mass/Vol] 33.5 % 32.0 - 36.0 % [facility] Work Phone: [phone] MCV (RBC) [Entitic vol] 90.3 fL 80.0 - 98.0 fL [employer] Work Phone: 1) Platelet distribution width (Bld) [Ratio] 15.2 % High 11.5 - 14.5 % [facility] Work Phone: () Platelet mean volume (Bld) [Entitic vol] 8.0 fL 7.4 - 10.4 fL [employer] Work Phone: [phone] Platelets (Bld) [#/Vol] 267 10*3/uL 140 - 440 10*3/uL [facility] Work Phone: [phone] RBC (Bld) [#/Vol] 4.39 10*6/uL Low 4.40 - 5.90 10*6/uL [facility] Work Phone: [phone] WBC (Bld) [#/Vol] 9.2 10*3/uL 3.6 - 10.7 10*3/uL [employer] Work Phone: [phone] Test Performed by [facility], [address] [place] [address] [facility] Work Phone: [phone] [facility] Work Phone: [phone] Hemogramon 03-10-2021 Erythrocyte distribution width (RBC) [Ratio] 15.2 % High 11.5-14.5 [facility] [address] [employer] Comment on above: Performed By: #### B MP3, HEMOG #### [facility] [address] [address] [address] [place] [address] Hematocrit (Bld) [Volume fraction] 39.6 % Low 40.0-52.0 [facility] Comment on above: Performed By: #### B MP3, HEMOG #### [facility] [address], [place] Hemoglobin (Bld) [Mass/Vol] 13.3 g/dL Normal 13.0-18.0 [facility] Comment on above: Performed By: #### B MP3, HEMOG #### [facility] [address], [place] MCH (RBC) [Entitic mass] 30.3 pg Normal 26.0-34.0 [facility] Comment on above: Performed By: #### B MP3, HEMOG #### [facility] [address], [place] MCHC 33.5 % Normal 32.0-36.0 [facility] Comment on above: Performed By: #### B MP3, HEMOG #### [facility] [address], [place] MCV (RBC) [Entitic vol] 90.3 fL Normal 80.0-98.0 [facility] Comment on above: Performed By: #### B MP3, HEMOG #### [facility] [address], [place] Platelet mean volume (Bld) [Entitic vol] 8.0 fL Normal 7.4-10.4 [facility] Comment on above: Performed By: #### B MP3, HEMOG #### [facility] [address], [place] Platelets (Bld) [#/Vol] 267 10*3/uL Normal 140-440 [facility] Comment on above: Performed By: #### B MP3, HEMOG #### [facility] [address], [place] RBC (Bld) [#/Vol] 4.39 10*6/uL Low 4.40-5.90 [facility] Comment on above: Performed By: #### B MP3, HEMOG #### [facility] [address], [place] WBC (Bld) [#/Vol] 9.2 10*3/uL Normal 3.6-10.7 [facility] Comment on above: Performed By: #### B MP3, HEMOG #### [facility] [address] [place] [address] CNCOon 09-26-2020 CNCO Letter Text Normal [facility] Basic Metabolic Panelon 04- Anion gap [Moles/Vol] 10 Normal [facility] Comment on above: Performed By: #### H EMDF, BMP3, LIPA4, TROPN #### [facility] [address] [place] [address] Calcium [Mass/Vol] 9.0 mg/dL Normal 8.4-10.4 [facility] Comment on above: Performed By: #### H EMDF, BMP3, LIPA4, TROPN #### [facility] [address] [place] [address] CO2 [Moles/Vol] 25 mmol/L Normal 22-30 [facility] Comment on above: Performed By: #### H EMDF, BMP3, LIPA4, TROPN #### [facility] [facility] [address] [place] [address] Creatinine [Mass/Vol] 0.88 mg/dL Normal 0.52-1.25 [facility] Comment on above: Performed By: #### H EMDF, BMP3, LIPA4, TROPN #### [facility] [address] [place] [address] GFR/1.73 sq M predicted among blacks MDRD (S/P/Bld) [Vol rate/Area] mL/min/{1.73_m2} Normal >60 [facility] Comment on above: Performed By: #### H EMDF, BMP3, LIPA4, TROPN #### [facility] [address] [facility] [address] [place] [address] GFR/1.73 sq M predicted among non-blacks MDRD (S/P/Bld) [Vol rate/Area] mL/min/{1.73_m2} Normal >60 [facility] Comment on above: Result Comment: Sour ce- MDRD equation with creatinine calibration to IDMS(NKDEP) eGFR not recommended for drug dose adjustment Performed By: #### H EMDF, BMP3, LIPA4, TROPN #### [facility] [address] [place] [address] Glucose [Mass/Vol] 128 mg/dL High 70-100 [facility] Comment on above: Performed By: #### H EMDF, BMP3, LIPA4, TROPN #### [facility] [address] [place] [address] Urea nitrogen [Mass/Vol] 19 mg/dL Normal 7-20 [facility] Comment on above: Performed By: #### H EMDF, BMP3, LIPA4, TROPN #### [facility] [address] [place] [address] Chloride [Moles/Vol] 108 mmol/L High 98-107 [facility] Comment on above: Performed By: #### H EMDF, BMP3, LIPA4, TROPN #### [facility] [address] [place] [address] Potassium [Moles/Vol] 3.6 mmol/L Normal 3.5-5.1 [facility] Comment on above: Performed By: #### H EMDF, BMP3, LIPA4, TROPN #### [facility] [address] [place] [address] Sodium [Moles/Vol] 143 mmol/L Normal 135-145 [facility] Comment on above: Performed By: #### H EMDF, BMP3, LIPA4, TROPN #### [facility] [address] [place] [address] Anion gap [Moles/Vol] 10 mmol/L [place], [place] Calcium [Mass/Vol] 9.0 mg/dL 8.4 - 10. 4 mg/dL [place] Chloride [Moles/Vol] 108 mmol/L High 98 - 10 7 mmol/L [place] CO2 [Moles/Vol] 25 mmol/L 22 - 30 mmol/L [place] Creatinine [Mass/Vol] 0.88 mg/dL 0.52 - 1.25 mg/dL [place] EGFR IF NonAfrican Latvian >60.0 >60 mL/min [place] Comment on above: Source- MDRD equatio n with creatinine calibration to IDMS(NKDEP) eGFR not recommended for drug dose adjustment GFR/1.73 sq M predicted among blacks MDRD (S/P/Bld) [Vol rate/Area] mL/min/{1.73_m2} >60 mL/min [place] Glucose [Mass/Vol] 128 mg/dL High 70 - 100 mg/dL [place] Interpretation and review of laboratory results Abnormal [place] Potassium [Moles/Vol] 3.6 mmol/L 3.5 - 5.1 mmol/L [place] Sodium [Moles/Vol] 143 mmol/L 135 - 145 mmol/L [place] Urea nitrogen [Mass/Vol] 19 mg/dL 7 - 20 mg/dL [place] CR Chest Portableon 09-15-19 20 CR Chest Portable Patient Name: SHANNON OLSON Diagnostic Radiology Exam Date/Time 09/15/2019 02:35:21 EDT Exam CR Chest Portable Ordering Physician MD VARSHA, [facility] Accession Number [id number] CPT4 Codes 51031 () Reason For Exam chest pain Report [...] Transcribed Date and Time: 09/15/2019 2:44 Normal [facility] Hemogram (CBC) w/Auto Diffon 09-15-2019 Absolute Baso # 0.0 10*3/uL 0 - 0.2 10*3/uL [place] Absolute Neut # 5.8 10*3/uL 1.8 - 7 10*3/uL [place] Basophils/100 WBC (Bld) 0.4 % 0 - 2 % [place] Eosinophils (Bld) [#/Vol] 0.1 10*3/uL 0 - 0.5 10*3/uL [place] Eosinophils/100 WBC (Bld) 1.5 % 1 - 6 % [place] Erythrocyte distribution width (RBC) [Ratio] 15.2 % High 11.5 - 14.5 % [place] Granulocytes/100 WBC (Bld) 72.1 % 40 - 80 % [place] Hematocrit (Bld) [Volume fraction] 37.9 % Low 40 - 52 % [place] Hemoglobin (Bld) [Mass/Vol] 12.4 g/dL Low 13 - 18 g/dL [place] Interpretation and review of laboratory results Abnormal [place] Lymphocytes (Bld) [#/Vol] 1.6 10*3/uL 1 - 4.3 10*3/uL [place] Lymphocytes/100 WBC (Bld) 19.5 % Low 20 - 40 % [place] MCH (RBC) [Entitic mass] 28.5 pg 26 - 34 pg [place] MCHC (RBC) [Mass/Vol] 32.8 % 32 - 36 % [place], [place] MCV (RBC) [Entitic vol] 86.9 fL 80 - 98 fL [place] Monocytes (Bld) [#/Vol] 0.5 10*3/uL 0 - 0.8 10*3/uL [place] Monocytes/100 WBC (Bld) 6.5 % 2 - 10 % [place] Platelet mean volume (Bld) [Entitic vol] 8.0 fL 7.4 - 10.4 fL [place] Platelets (Bld) [#/Vol] 232 10*3/uL 140 - 440 10*3/uL [place] RBC (Bld) [#/Vol] 4.36 10*6/uL Low 4.4 - 5.9 10*6/uL [place] WBC (Bld) [#/Vol] 8.1 10*3/uL 3.6 - 10.7 10*3/uL [place] Test Performed by [facility], [address] [place] [address] [place], [place] Hemogram w/ Autodiffon 09-14 Abs Baso Cnt 0.0 10*3/uL Normal 0.0-0.2 [facility] Comment on above: Performed By: #### H EMDF, BMP3, LIPA4, TROPN #### [facility] [address] [place] [address] Abs Neutrophile Cnt 5.8 10*3/uL Normal 1.8-7.0 [facility] Comment on above: Performed By: #### H EMDF, BMP3, LIPA4, TROPN #### [facility] [address] [place] [address] Basophils/100 WBC (Bld) 0.4 % Normal 0.0-2.0 [facility] Comment on above: Performed By: #### H EMDF, BMP3, LIPA4, TROPN #### [facility] [address] [place] [address] Eosinophils (Bld) [#/Vol] 0.1 10*3/uL Normal 0.0-0.5 [facility] Comment on above: Performed By: #### H EMDF, BMP3, LIPA4, TROPN #### [facility] [address] [place] [address] Eosinophils/100 WBC (Bld) 1.5 % Normal 1.0-6.0 [facility] Comment on above: Performed By: #### H EMDF, BMP3, LIPA4, TROPN #### [facility] [address] [place] [address] Erythrocyte distribution width (RBC) [Ratio] 15.2 % High 11.5-14.5 [facility] Comment on above: Performed By: #### H EMDF, BMP3, LIPA4, TROPN #### [facility] [address] [place] [address] Granulocytes/100 WBC (Bld) 72.1 % Normal 40.0-80.0 [facility] Comment on above: Performed By: #### H EMDF, BMP3, LIPA4, TROPN #### [facility] [address] [place] [address] Hematocrit (Bld) [Volume fraction] 37.9 % Low 40.0-52.0 [facility] Comment on above: Performed By: #### H EMDF, BMP3, LIPA4, TROPN #### [facility] [address] [place] [address] Hemoglobin (Bld) [Mass/Vol] 12.4 g/dL Low 13.0-18.0 [facility] Comment on above: Performed By: #### H EMDF, BMP3, LIPA4, TROPN #### [place] [address] [place] [address] Lymphocytes (Bld) [#/Vol] 1.6 10*3/uL Normal 1.0-4.3 [facility] Comment on above: Performed By: #### H EMDF, BMP3, LIPA4, TROPN #### [facility] [address] [place] [address] Lymphocytes/100 WBC (Bld) 19.5 % Low 20.0-40.0 [facility] Comment on above: Performed By: #### H EMDF, BMP3, LIPA4, TROPN #### [facility] [address] [place] [address] MCH (RBC) [Entitic mass] 28.5 pg Normal 26.0-34.0 [facility] Comment on above: Performed By: #### H EMDF, BMP3, LIPA4, TROPN #### [facility] [address] [place] [address] MCHC (RBC) [Mass/Vol] 32.8 % Normal 32.0-36.0 [facility] Comment on above: Performed By: #### H EMDF, BMP3, LIPA4, TROPN #### [facility] [address] [place] [address] MCV (RBC) [Entitic vol] 86.9 fL Normal 80.0-98.0 [facility] Comment on above: Performed By: #### H EMDF, BMP3, LIPA4, TROPN #### [facility] [address] [place] [address] Monocytes (Bld) [#/Vol] 0.5 10*3/uL Normal 0.0-0.8 [facility] Comment on above: Performed By: #### H EMDF, BMP3, LIPA4, TROPN #### [facility] [address] [place] [address] Monocytes/100 WBC (Bld) 6.5 % Normal 2.0-10.0 [facility] Comment on above: Performed By: #### H EMDF, BMP3, LIPA4, TROPN #### [facility] [address] [place] [address] Platelet mean volume (Bld) [Entitic vol] 8.0 fL Normal 7.4-10.4 [facility] Comment on above: Performed By: #### H EMDF, BMP3, LIPA4, TROPN #### [facility] [address] [place] [address] Platelets (Bld) [#/Vol] 232 10*3/uL Normal 140-440 [facility] Comment on above: Performed By: #### H EMDF, BMP3, LIPA4, TROPN #### [facility] [address] [place] [address] RBC (Bld) [#/Vol] 4.36 10*6/uL Low 4.40-5.90 [facility] Comment on above: Performed By: #### H EMDF, BMP3, LIPA4, TROPN #### [facility] [address] [place] [address] WBC (Bld) [#/Vol] 8.1 10*3/uL Normal 3.6-10.7 [facility] Comment on above: Performed By: #### H EMDF, BMP3, LIPA4, TROPN #### [facility] [address] [place] [address] Lipaseon 09-15-2019 Lipase [Catalytic activity/Vol] 97 U/L Normal 23-300 [facility] Comment on above: Performed By: #### H EMDF, BMP3, LIPA4, TROPN #### [facility] [address] [place] [address] Lipase [Catalytic activity/Vol] 97 U/L 23 - 300 U/L [place] Otheron 09-15-2019 Test Performed by [facility], [address] [place], [place] [id number] [place] [address] Troponinon 09-15-2019 Troponin I.cardiac [Mass/Vol] 0.031 ng/mL 0 - 0.034 ng/mL [place], [place] Comment on above: . Test Performed by [facility], [address] [place] [address] Troponin Ion 09-15-2019 Troponin I.cardiac [Mass/Vol] 0.031 ng/mL Normal 0.000-0.03 4 [facility] Comment on above: Result Comment: . Performed By: #### T ROPN #### [facility] [address] [place] [address] Troponin I.cardiac [Mass/Vol] 0.030 ng/mL Normal 0.000-0.03 4 [facility] Comment on above: Result Comment: . Performed By: #### H EMDF, BMP3, LIPA4, TROPN #### [facility] [address] [place] [address] Troponin x1on 09-15-2019 Troponin I.cardiac [Mass/Vol] 0.030 ng/mL 0 - 0.034 ng/mL [place], [place] Comment on above: . Test Performed by [facility], [address] [place], [place] [id number] [place] [address] XR CHEST PORTABLEon 09-15-19 20 Patient Name: SHANNON OLSON ---Diagnostic Radiology--- Exam Date/Time 09/15/2019 02:35:21 EDT Exam CR Chest Portable Ordering Physician MD VARSHA, JUSTEN Accession Number [id number] CPT4 Codes 64819 () Reason For Exam chest pain Report [...] JEFFREY Transcribed Date and Time: 09/15/2019 2:44 [place], [place], [facility] Incoming Radiology Results From [facility] - 09/15/2019 2:44 AM EDT Patient Name: SHANNON OLSON ---Diagnostic Radiology--- Exam Date/Time 09/15/2019 02:35:21 EDT Exam CR Chest Portable Ordering Physician MD VARSHA, [facility] Accession Number [id number] CPT4 Codes 83909 () Reason For Exam chest pain Report [...] JEFFREY Transcribed Date and Time: 09/15/2019 2:44 [place], [place] CBCon 09-09-2019 Erythrocyte distribution width (RBC) [Ratio] 15.2 % High 11.5 - 14.5 % [place] Comment on above: Test Performed by [facility], [address] [place] [address] Hematocrit (Bld) [Volume fraction] 37.8 % Low 40 - 52 % [place] Comment on above: Test Performed by [facility], [address] [place] [address] Hemoglobin (Bld) [Mass/Vol] 12.7 g/dL Low 13 - 18 g/dL [place] Comment on above: Test Performed by [facility], [address] [place] [address] Interpretation and review of laboratory results Abnormal [place], [place] MCH (RBC) [Entitic mass] 28.9 pg 26 - 34 pg [place], [place] Comment on above: Test Performed by [facility], [address] [place] [address] MCHC (RBC) [Mass/Vol] 33.5 % 32 - 36 % [place], [place] Comment on above: Test Performed by [facility], [address] [place] [address] MCV (RBC) [Entitic vol] 86.2 fL 80 - 98 fL [place], [place] Comment on above: Test Performed by [facility], [address] [place] [address] Platelet mean volume (Bld) [Entitic vol] 7.6 fL 7.4 - 10.4 fL [place] Comment on above: Test Performed by [facility], [facility] [place] [address] Platelets (Bld) [#/Vol] 266 10*3/uL 140 - 440 10*3/uL [place], [place] Comment on above: Test Performed by [facility], [address] [place] [address] RBC (Bld) [#/Vol] 4.39 10*6/uL Low 4.4 - 5.9 10*6/uL [place] Comment on above: Test Performed by [facility], [address] [place] [address] WBC (Bld) [#/Vol] 9.5 10*3/uL 3.6 - 10.7 10*3/uL [place] Test Performed by [facility], [facility] [place] [address] [place] Comprehensive Metabolic Pane l w/ Reflex to MGon 09-09-2019 Albumin [Mass/Vol] 3.6 g/dL 3.5 - 5 g/dL [place], [place] Comment on above: Test Performed by [facility], [facility] [place] [address] ALP [Catalytic activity/Vol] 87 U/L 38 - 126 U/L [place] Comment on above: Test Performed by [facility], [facility] [place] [address] ALT [Catalytic activity/Vol] 50 U/L High 0 - 49 U/L [place] Comment on above: Test Performed by [facility], [facility] [place] [address] The ALT test is performed by an updated assay method. Please note that the reference intervals have been changed and are now sex specific. Anion gap [Moles/Vol] 8 mmol/L [place], [place] Comment on above: Test Performed by [facility], [facility] [place] [address] AST [Catalytic activity/Vol] 40 U/L 15 - 46 U/L [place] Comment on above: Test Performed by [facility], [facility] [place] [address] Bilirubin Ql (U) 1.4 mg/dL High 0.2 - 1.3 mg/dL [place], [place] Comment on above: Test Performed by [facility], [facility] [place] [address] Calcium [Mass/Vol] 8.8 mg/dL 8.4 - 10. 4 mg/dL [place] Comment on above: Test Performed by [facility], [facility] [place] [address] Chloride [Moles/Vol] 106 mmol/L 98 - 10 7 mmol/L [place] Comment on above: Test Performed by [facility], [facility] [place] [address] CO2 [Moles/Vol] 25 mmol/L 22 - 30 mmol/L [place] Comment on above: Test Performed by [facility], [facility] [place] [address] Creatinine [Mass/Vol] 1.03 mg/dL 0.52 - 1.25 mg/dL [place] Comment on above: Test Performed by [employer] [facility], [facility] [place] [address] EGFR IF NonAfrican Latvian >60.0 >60 mL/min [place], [place] Comment on above: Test Performed by [employer] [facility], [facility] [place] [address] Source- MDRD equation with creatinine calibration to IDMS(NKDEP) eGFR not recommended for drug dose adjustment GFR/1.73 sq M predicted among blacks MDRD (S/P/Bld) [Vol rate/Area] mL/min/{1.73_m2} >60 mL/min [place] Comment on above: Test Performed by [employer] [facility], [facility] [place] [address] Glucose [Mass/Vol] 111 mg/dL High 70 - 100 mg/dL [place], [place] Comment on above: Test Performed by [employer], [place] [address] Interpretation and review of laboratory results Abnormal [place] Potassium [Moles/Vol] 3.7 mmol/L 3.5 - 5.1 mmol/L [place], [place] Comment on above: Test Performed by [employer] [facility], [facility] [place] [address] Protein [Mass/Vol] 6.4 g/dL 6.3 - 8.2 g/dL [place], [place] Comment on above: Test Performed by [employer], [facility] [place] [address] Sodium [Moles/Vol] 140 mmol/L 135 - 145 mmol/L [place] Urea nitrogen [Mass/Vol] 23 mg/dL High 7 - 20 mg/dL [place], [place] Comment on above: Test Performed by [employer], [facility] [place] [address] Test Performed by [facility], [place] [address] [place], [place] EKG 12 Leadon 09-09-2019 [place], [facility] Cardiology Results From Merge[facility]Natany - 09/09/2019 1:50 PM EDT 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: YOLANDA : 1955 Requested By: YEMI SOUTH Order Number: [id number] Reading MD: Jeremy Chase Measurements Intervals [place] Rate: 95 P: DC: QRS: -24 QRSD: 175 T: 27 QT: 486 QTc: 611 Interpretive Statements Atrial fibrillation Ventricular premature complex Left bundle branch block Electronically Signed On 09-09-2019 13:49:23 EDT by Jeremy [facility] Test Date: 2019-09-06 Pat Name: Shannon Olson Department: 1A5W Room: 30 Gender: M Marine Operations Coordinator: YOLANDA : 1955 Requested By: YEMI SOUTH Order Number: [id number] Reading MD: Jeremy Chase Measurements Intervals [place] Rate: 95 P: DC: QRS: -24 QRSD: 175 T: 27 QT: 486 QTc: 611 Interpretive Statements Atrial fibrillation Ventricular premature complex Left bundle branch block Electronically Signed On 09-09-2019 13:49:23 EDT by [place], [place] Basic Metabolic Panelon 08-22 Anion gap [Moles/Vol] 6 mmol/L [place], [place] Comment on above: Test Performed by [facility], [facility] [place] [address] Calcium [Mass/Vol] 9.0 mg/dL 8.4 - 10. 4 mg/dL [place], [place] Comment on above: Test Performed by [facility], [facility] [place] [address] Chloride [Moles/Vol] 106 mmol/L 98 - 10 7 mmol/L [place] Comment on above: Test Performed by [facility], [facility] [place] [address] CO2 [Moles/Vol] 25 mmol/L 22 - 30 mmol/L [place] Comment on above: Test Performed by [facility], [facility] [place] [address] Creatinine [Mass/Vol] 1.18 mg/dL 0.52 - 1.25 mg/dL [place], [place] Comment on above: Test Performed by [facility], [address] [place] [address] EGFR IF NonAfrican Latvian >60.0 >60 mL/min [place], [place] Comment on above: Test Performed by [facility], [address] [place] [address] Source- MDRD equation with creatinine calibration to IDMS(NKDEP) eGFR not recommended for drug dose adjustment GFR/1.73 sq M predicted among blacks MDRD (S/P/Bld) [Vol rate/Area] mL/min/{1.73_m2} >60 mL/min [place] Comment on above: Test Performed by [facility], [address] [place] [address] Glucose [Mass/Vol] 100 mg/dL 70 - 100 mg/dL [place], [place] Comment on above: Test Performed by [facility], [address] [place] [address] Interpretation and review of laboratory results Abnormal [place] Potassium [Moles/Vol] 4.0 mmol/L 3.5 - 5.1 mmol/L [place] Comment on above: Test Performed by [facility], [address] [place] [address] Sodium [Moles/Vol] 137 mmol/L 135 - 145 mmol/L [place] Urea nitrogen [Mass/Vol] 26 mg/dL High 7 - 20 mg/dL [place] Comment on above: Test Performed by [employer], [facility] [place] [address] Test Performed by [facility] [employer] [facility], [address] [place] [address] [place] Diagnostic 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 The vessel was entered, a .014 [facility] [place] IVUS catheter was advanced into position over [...] signed by George Reed MD 09/08/2019 14:41 [facility], [place], [facility] Cardiology Results From Anthony/Denae - 09/08/2019 2:41 PM EDT [facility] CARDIAC CATHETERIZATION Patient: Shannon Olson [...] artery. 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: DAVEY : 1955 Requested By: MIGUEL CHANG Order Number: [id number] Chetan ALVARADO: Peña Knutson Measurements Intervals [place] Rate: 61 P: 42 DC: 177 QRS: 5 QRSD: 115 T: 27 QT: 455 QTc: 459 Interpretive Statements Sinus rhythm Left ventricular hypertrophy Inferior infarct, old Electronically Signed On 09-08-2019 15:53:33 EDT by Peña Knutson [facility], [employer] Test Date: 2019-09-07 Pat Name: Shannon Olson Department: 1A5W Room: 30 Gender: M Marine Operations Coordinator: HALIMA : 1955 Requested By: MIGUEL CHANG Order Number: [id number] Chetan ALVARADO: Peña Knutson Measurements Intervals [place] Rate: 61 P: 42 DC: 177 QRS: 5 QRSD: 115 T: 27 QT: 455 QTc: 459 Interpretive Statements Sinus rhythm Left ventricular hypertrophy Inferior infarct, old Electronically Signed On 09-08-2019 15:53:33 EDT by Peña Knutson [facility] [place], [place] Echo Cardiac Stress Test Goldieshyla carmichael 09-08-2019 STRESS ECHOCARDIOGRA M Nino Protocol PATIENT: Shannon Olson STUDY DATE: 09/08/2019 : 1955 AGE: 63 HT/WT: 188 cm (74 119.8 kg (263.5 in) lb) GENDER: M BP: 138 / 80 LOCATION: [facility] PATIENT Observation main STATUS: *ORDERING PHYSICIAN: * Zoie Gonzales MD *SUPERVISING PHYSICIAN: * Tree *RN: Soco Salazar MD *READING PHYSICIAN: Humberto PaulCHILDREN'S NURSERY ASSISTANT: Coby Sandra RDCS, MD AE, CCT, RCS INDICATIONS: Chest pain. HISTORY: Dyslipidemia. Chronic obstructive [...] [facility] FINDINGS LEFT VENTRICLE: The cavity size is [...] peak heart rate and blood pressure [place] [address] mm Hg/min. Stress testing did not produce [...] Tree Tenorio MD 09/08/2019 10:24 Prior Signatures: [facility], Dee Davidson Incoming Cardiology Results From [facility]/Denae - 09/08/2019 10:24 AM EDT STRESS ECHOCARDIOGRAM Nino Protocol PATIENT: Shannon Olson STUDY DATE: 09/08/2019 : 1955 AGE: 63 HT/WT: 188 cm (74 119.8 kg (263.5 in) lb) GENDER: M BP: 138 / 80 LOCATION: [facility] PATIENT Observation main STATUS: *ORDERING PHYSICIAN: * Zoie Gonzales MD *SUPERVISING PHYSICIAN: Humberto Leavitt *RN: Soco Salazar MD *READING PHYSICIAN: Humberto Leavitt *CHILDREN'S NURSERY ASSISTANT: * Coby Douglas RDCS, MD AE, CCT, RCS INDICATIONS: Chest pain. HISTORY: Dyslipidemia. Chronic obstructive [...] The [facility] FINDINGS LEFT VENTRICLE: The cavity size is [...] peak heart rate and blood pressure was 768[address] mm Hg/min. Stress testing did not produce [...] Tree Tenorio MD 09/08/2019 10:24 Prior Signatures: [place] [facility] 09-07-2019 TRANSESOPHAGEAL ECHOCARDIOGRAM PATIENT: Shannon Olson STUDY DATE: 09/07/2019 : 1955 AGE: 63 HT/WT: 188 cm (74 118.8 kg (261.4 in) lb) GENDER: M BP: 134 / 77 LOCATION: [facility] PATIENT Observation main STATUS: *ORDERING PHYSICIAN: * Subhash Arrieta *READING PHYSICIAN: * Miguel Chang MD, *CHILDREN'S NURSERY ASSISTANT: * Nathalia Kramer [facility] INDICATIONS: Atrial Fibrillation. CONCLUSIONS SUMMARY: 1. Left [...] appendage. There is mild spontaneous echo contrast ("smoke"). The appendage is of normal size. Emptying [...] range. Electronically signed by Miguel Chang MD, [facility] 09/07/2019 14:39 Prior Signatures: [facility] [place], [place] Dee Payne Incoming Cardiology Results From [employer] - 09/07/2019 2:39 PM EDT TRANSESOPHAGEAL ECHOCARDIOGRAM PATIENT: Shannon Olson STUDY DATE: 09/07/2019 : 1955 AGE: 63 HT/WT: 188 cm (74 118.8 kg (261.4 in) lb) GENDER: M BP: 134 / 77 LOCATION: [facility] PATIENT Observation main STATUS: *ORDERING PHYSICIAN: * Subhash Arrieta *READING PHYSICIAN: * Miguel Chang MD, *CHILDREN'S NURSERY ASSISTANT: * Nathalia Kramer [facility] INDICATIONS: Atrial Fibrillation. CONCLUSIONS SUMMARY: 1. Left [...] appendage. There is mild spontaneous echo contrast ("smoke"). The appendage is of normal size. Emptying [...] range. Electronically signed by Miguel Chang MD, [facility] 09/07/2019 14:39 Prior Signatures: [place], [place] Basic Metabolic Panel 08-22 Anion gap [Moles/Vol] 9 mmol/L [place], [place] Comment on above: Test Performed by [employer], [facility] [place] [address] Calcium [Mass/Vol] 9.0 mg/dL 8.4 - 10. 4 mg/dL [place] Comment on above: Test Performed by [employer], [facility] [place] [address] Chloride [Moles/Vol] 109 mmol/L High 98 - 10 7 mmol/L [place] Comment on above: Test Performed by [employer], [facility] [place] [address] CO2 [Moles/Vol] 22 mmol/L 22 - 30 mmol/L [place] Comment on above: Test Performed by [employer] [facility], [facility] [place] [address] Creatinine [Mass/Vol] 0.84 mg/dL 0.52 - 1.25 mg/dL [place] Comment on above: Test Performed by [facility], [facility] [place] [address] EGFR IF NonAfrican Latvian >60.0 >60 mL/min [place], [place] Comment on above: Test Performed by [facility], [facility] [place] [address] Source- MDRD equation with creatinine calibration to IDMS(NKDEP) eGFR not recommended for drug dose adjustment GFR/1.73 sq M predicted among blacks MDRD (S/P/Bld) [Vol rate/Area] mL/min/{1.73_m2} >60 mL/min [place] Comment on above: Test Performed by [facility] [employer], [facility] [place] [address] Glucose [Mass/Vol] 104 mg/dL High 70 - 100 mg/dL [place], [place] Comment on above: Test Performed by [facility], [address] [place] [address] Interpretation and review of laboratory results Abnormal [place] Potassium [Moles/Vol] 3.6 mmol/L 3.5 - 5.1 mmol/L [place] Comment on above: Test Performed by [facility], [address] [place] [address] Sodium [Moles/Vol] 139 mmol/L 135 - 145 mmol/L [place] Urea nitrogen [Mass/Vol] 20 mg/dL 7 - 20 mg/dL [place], [place] Comment on above: Test Performed by [facility], [address] [place] [address] EKG 12 Leadon 09-06-2019 [place], [facility] Incoming Cardiology [facility] 09/06/2019 9:05 AM EDT 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 : 1955 Requested By: ARI RUEDA Order Number: [id number] Reading MD: Luisa Blackburn Measurements Intervals [place] Rate: 108 P: DC: QRS: -5 QRSD: 199 T: 12 QT: 445 QTc: 597 Interpretive Statements Atrial fibrillation Left ventricular hypertrophy LBBB Baseline artifact Electronically Signed On 09-06-2019 9:04:11 EDT by Luisa Nunezmtjacinta [facility] Test Date: 2019-09-05 Pat Name: Shannon Olson Department: [facility] Room: 1539 Gender: M Marine Operations Coordinator: YB : 1955 Requested By: ARI RUEDA Order Number: [id number] Reading MD: Luisa Nunezmtjacinta Measurements Intervals [place] Rate: 108 P: DC: QRS: -5 QRSD: 199 T: 12 QT: 445 QTc: 597 Interpretive Statements Atrial fibrillation Left ventricular hypertrophy LBBB Baseline artifact Electronically Signed On 09-06-2019 9:04:11 EDT by [place] EKG 12 Lead - Chest Painon 0 09-06-2019 [place], [facility] Incoming Cardiology Results From [facility] - 09/06/2019 9:04 AM EDT 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 : 1955 Requested By: ARI RUEDA Order Number: [id number] Reading MD: Luisa Blackburn Measurements Intervals [place] Rate: 84 P: DC: QRS: 1 QRSD: 114 T: 15 QT: 394 QTc: 466 Interpretive Statements Atrial fibrillation Left ventricular hypertrophy Inferior infarct, old ST elevation, consider anterior injury Electronically Signed On 09-06-2019 9:03:02 EDT by [facility] Test Date: 2019-09-05 Pat Name: Shannon Olson Department: [facility] Room: 1539 Gender: M 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 [place], [place] [id number] [place] [address] TSH without Reflexon 020 TSH Qn 1.129 u[IU]/mL 0.465 - 4.68 u[IU]/mL [place], [place] Test Performed by [employer] [facility], [facility] [employer] [place] [address] [place], [place] Troponinon 09-06-2019 Troponin I.cardiac [Mass/Vol] 0.019 ng/mL 0 - 0.034 ng/mL [place], [place] Comment on above: . Test Performed by [facility], [facility] [place] [address] [place], [place] Troponin I.cardiac [Mass/Vol] 0.028 ng/mL 0 - 0.034 ng/mL [place], [place] Comment on above: . Test Performed by [facility], [facility] [place] [address] [place], [place] Basic Metabolic Panelon 08-22 Anion gap [Moles/Vol] 9 mmol/L [place], [place] Comment on above: Test Performed by [facility], [facility] [place] [address] Calcium [Mass/Vol] 9.0 mg/dL 8.4 - 10. 4 mg/dL [place] Comment on above: Test Performed by [facility], [facility] [place] [address] Chloride [Moles/Vol] 107 mmol/L 98 - 10 7 mmol/L [place] Comment on above: Test Performed by [employer] [facility], [facility] [place] [address] CO2 [Moles/Vol] 23 mmol/L 22 - 30 mmol/L [place] Comment on above: Test Performed by [facility], [facility] [place] [address] Creatinine [Mass/Vol] 0.96 mg/dL 0.52 - 1.25 mg/dL [place] Comment on above: Test Performed by [employer] [facility], [facility] [place] [address] EGFR IF NonAfrican Latvian >60.0 >60 mL/min [place] Comment on above: Test Performed by [facility], [facility] [place] [address] Source- MDRD equation with creatinine calibration to IDMS(NKDEP) eGFR not recommended for drug dose adjustment GFR/1.73 sq M predicted among blacks MDRD (S/P/Bld) [Vol rate/Area] mL/min/{1.73_m2} >60 mL/min [place], [place] Comment on above: Test Performed by [facility], [address] [place] [address] Glucose [Mass/Vol] 109 mg/dL High 70 - 100 mg/dL [place] Comment on above: Test Performed by [facility], [address] [place] [address] Interpretation and review of laboratory results Abnormal [place] Potassium [Moles/Vol] 4.0 mmol/L 3.5 - 5.1 mmol/L [place] Comment on above: Test Performed by [facility], [address] [place] [address] Sodium [Moles/Vol] 139 mmol/L 135 - 145 mmol/L [place] Urea nitrogen [Mass/Vol] 22 mg/dL High 7 - 20 mg/dL [place] Comment on above: Test Performed by [facility], [address] [place] [address] Brain Natriuretic Peptideon 09-05-2019 Interpretation and review of laboratory results Abnormal [place] Natriuretic peptide B (Bld) [Mass/Vol] 645 pg/mL High 0 - 125 pg/mL [place] CBC Auto Differentialon 08-22 Absolute Baso # 0.0 10*3/uL 0 - 0.2 10*3/uL [place] Comment on above: Test Performed by [facility], [address] [place] [address] Absolute Neut # 8.0 10*3/uL High 1.8 - 7 10*3/uL [place] Comment on above: Test Performed by [facility], [address] [place] [address] Basophils/100 WBC (Bld) 0.5 % 0 - 2 % [place] Comment on above: Test Performed by [facility], [address] [place] [address] Eosinophils (Bld) [#/Vol] 0.0 10*3/uL 0 - 0.5 10*3/uL [place] Comment on above: Test Performed by [facility], [address] [place] [address] Eosinophils/100 WBC (Bld) 0.2 % Low 1 - 6 % [place] Comment on above: Test Performed by [facility], [facility] [place] [address] Erythrocyte distribution width (RBC) [Ratio] 15.1 % High 11.5 - 14.5 % [place] Comment on above: Test Performed by [facility], [facility] [place] [address] Granulocytes/100 WBC (Bld) 83.5 % High 40 - 80 % [place] Comment on above: Test Performed by [facility], [address] [place] [address] Hematocrit (Bld) [Volume fraction] 42.0 % 40 - 52 % [place] Comment on above: Test Performed by [facility], [address] [place] [address] Hemoglobin (Bld) [Mass/Vol] 14.1 g/dL 13 - 18 g/dL [place] Comment on above: Test Performed by [facility], [facility] [place] [address] Interpretation and review of laboratory results Abnormal [place] Lymphocytes (Bld) [#/Vol] 0.9 10*3/uL Low 1 - 4.3 10*3/uL [place] Comment on above: Test Performed by [facility], [facility] [place] [address] Lymphocytes/100 WBC (Bld) 9.9 % Low 20 - 40 % [place] Comment on above: Test Performed by [facility], [facility] [place] [address] MCH (RBC) [Entitic mass] 29.1 pg 26 - 34 pg [place] Comment on above: Test Performed by [facility], [facility] [place] [address] MCHC (RBC) [Mass/Vol] 33.7 % 32 - 36 % [place] Comment on above: Test Performed by [facility], [facility] [place] [address] MCV (RBC) [Entitic vol] 86.2 fL 80 - 98 fL [place] Comment on above: Test Performed by [facility], [address] [place] [address] Monocytes (Bld) [#/Vol] 0.6 10*3/uL 0 - 0.8 10*3/uL [place] Comment on above: Test Performed by [facility], [address] [place] [address] Monocytes/100 WBC (Bld) 5.9 % 2 - 10 % [place] Comment on above: Test Performed by [facility], [address] [place] [address] Platelet mean volume (Bld) [Entitic vol] 7.8 fL 7.4 - 10.4 fL [place] Comment on above: Test Performed by [facility], [address] [place] [address] Platelets (Bld) [#/Vol] 255 10*3/uL 140 - 440 10*3/uL [place] Comment on above: Test Performed by [facility], [address] [place] [address] RBC (Bld) [#/Vol] 4.87 10*6/uL 4.4 - 5.9 10*6/uL [place] Comment on above: Test Performed by [facility], [address] [place] [address] WBC (Bld) [#/Vol] 9.6 10*3/uL 3.6 - 10.7 10*3/uL [place] Test Performed by [facility], [facility] [address] [place] [address] [place] Magnesiumon 09-05-2019 Magnesium [Mass/Vol] 2.0 mg/dL 1.6 - 2 .3 mg/dL [place] Otheron 09-05-2019 Test Performed by [facility], [facility] [address] [place] [address] [place] Test Performed by [facility], [address] [place] [address] [place] Phosphoruson 09-05-2019 Phosphate [Mass/Vol] 3.1 mg/dL 2.5 - 4 .5 mg/dL [place] Troponinon 09-05-2019 Troponin I.cardiac [Mass/Vol] 0.025 ng/mL 0 - 0.034 ng/mL [place] Comment on above: . Test Performed by [facility], [address] [place] [address], [place] [address] [place] Troponin I.cardiac [Mass/Vol] 0.015 ng/mL 0 - 0.034 ng/mL [place] Comment on above: . XR CHEST PORTABLEon 09-05-19 [address] [place] Incoming Radiology Results From [facility] - 09/05/2019 10:23 AM EDT Patient Name: SHANNON OLSON ---Diagnostic Radiology--- Exam Date/Time 09/05/2019 10:22:16 EDT Exam CR Chest Portable Ordering Physician MD RUEDA DOUGALAS R. Accession Number [id number] CPT4 Codes 17071 () Reason For Exam chest pain. extensive [...] No acute process. Report Dictated on Workstation: [id number] --- Final --- Dictated: 09/05/2019 10:21 am Dictating Physician: MD REED RISA Signed Date and Time: 09/05/2019 10:22 am Signed by: MD REED RISA Transcribed Date and Time: 09/05/2019 10:21 [place] Patient Name: SHANNON OLSON ---Diagnostic Radiology--- Exam Date/Time 09/05/2019 10:22:16 EDT Exam CR Chest Portable Ordering Physician MD RUEDA DOUGALAS R. Accession Number [id number] CPT4 Codes 79206 () Reason For Exam chest pain. extensive [...] RISA Transcribed Date and Time: 09/05/2019 10:21 [place] .Auto Diffon 04-19-2019 Ammonia (P) [Mass/Vol] 0.70 10 3/mcL Normal 0.15-1.00 [facility] ([place] Comment on above: Performed By: #### C AYAAN ALAS ANEU #### [address] [address] #### BMP, GFR #### [address] [address] Basophils (Bld) [#/Vol] 0.00 10 3/mcL Normal 0.00-0.19 [facility] ([place] Comment on above: Performed By: #### C AYAAN ALAS ANEU #### [address] [address] #### BMP, GFR #### [address] [address] Basophils/100 WBC (Bld) 0.0 % Normal 0.0-2.5 [facility] ([place] Comment on above: Performed By: #### C BC ADIFF, ANEU #### [address] [address] #### BMP, GFR #### [address] [address] Eosinophils (Bld) [#/Vol] 0.00 10 3/mcL Normal 0.00-0.40 [facility] ([place]) Comment on above: Performed By: #### C BC, ADIFF, ANEU #### [address] [address] #### BMP, GFR #### [address] [address] Eosinophils/100 WBC (Bld) 0.0 % Normal 0.0-7.0 [facility] ([place]) Comment on above: Performed By: #### C BC, ADIFF, ANEU #### [address] [address] #### BMP, GFR #### [address] [address] Lymphocytes (Bld) [#/Vol] 0.40 10 3/mcL Low 0.77-3.85 [facility] ([place]) Comment on above: Performed By: #### C BISHOP, ADIFF, ANEU #### [place] [id number] #### BMP, GFR #### [address] [address] Lymphocytes/100 WBC (Bld) 2.6 % Low 10.0-50.0 [facility] ([place]) Comment on above: Performed By: #### C BC, ADIFF, ANEU #### [place] [address] #### BMP, GFR #### [address] [address] Monocytes/100 WBC (Bld) 4.6 % Normal 1.7-13.0 [facility] ([place]) Comment on above: Performed By: #### C BC, ADIFF, ANEU #### [place] [address] #### BMP, GFR #### [address] [address] Neutrophils/100 WBC (Bld) 92.8 % High 37.0-80.0 [facility] ([place]) Comment on above: Performed By: #### C BC, ADIFF, ANEU #### [facility] [address] [place], [place] [address] #### BMP, GFR #### [address] [address] .GFRon 04-19-2019 GFR 75 ml/min/1.73sqm Normal [facility] ([place] Comment on above: Result Comment: GFR Population [...] mL/min/1.73 square meters Performed By: #### C BC, ADIFF, ANEU #### [facility] [address] [place], [place] [address] #### BMP, GFR #### [address] [address] GFR Non- 62 ml/min/1.73sqm Normal [facility] ([place] Comment on above: Result Comment: GFR Population [...] mL/min/1.73 square meters Performed By: #### C BC, ADIFF, ANEU #### [address] [address] #### BMP, GFR #### [address] [address] .NEUABSon 04-19-2019 Neutrophils (Bld) [#/Vol] 14.80 10 3/mcL High 2.85-6.16 [facility] ([place] Comment on above: Performed By: #### C BC, ADIFF, ANEU #### [place] [address] #### BMP, GFR #### [address] [address] BMPon 04-19-2019 Calcium [Mass/Vol] 8.5 mg/dL Normal 8.4-10.2 [facility] ([place] Comment on above: Performed By: #### C BC, ADIFF, ANEU #### [address] [address] #### BMP, GFR #### [address] [address] Chloride [Moles/Vol] 106 mmol/L Normal 98-107 [facility] ([place] Comment on above: Performed By: #### C BC, ADIFF, ANEU #### [address] [address] #### BMP, GFR #### [address] [address] CO2 [Moles/Vol] 27 mmol/L Normal 23-31 [facility] ([place] Comment on above: Performed By: #### C BC, ADIFF, ANEU #### [address] [address] #### BMP, GFR #### [address] [address] Creatinine [Mass/Vol] 1.19 mg/dL Normal 0.70-1.30 [facility] ([place] Comment on above: Performed By: #### C BC, ADIFF, ANEU #### [address] [address] #### BMP, GFR #### [address] [address] Electrolyte Balance 9.0 mEq/L Normal [facility] ([place] Comment on above: Performed By: #### C BC, ADIFF, ANEU #### [address] [address] #### BMP, GFR #### [address] [address] Glucose [Mass/Vol] 148 mg/dL High 80-115 [facility] ([place] Comment on above: Performed By: #### C BC, ADIFF, ANEU #### [address] [address] #### BMP, GFR #### [address] [address] Potassium [Moles/Vol] 4.2 mmol/L Normal 3.5-5.1 [facility] ([place] Comment on above: Performed By: #### C BC, ADIFF, ANEU #### [address] [address] #### BMP, GFR #### [address] [address] Sodium [Moles/Vol] 142 mmol/L Normal 136-145 [facility] ([place] Comment on above: Performed By: #### C BC, ADIFF, ANEU #### [address] [address] #### BMP, GFR #### [address] [address] Urea nitrogen [Mass/Vol] 20 mg/dL High 7-18 [facility] ([place] Comment on above: Performed By: #### C BC, ADIFF, ANEU #### [address] [address] #### BMP, GFR #### [address] [address] Urea nitrogen/Creatinine [Mass ratio] 17 ratio Normal 7-27 [facility] ([place] Comment on above: Performed By: #### C BC, ADIFF, ANEU #### [address] [address] #### BMP, GFR #### [address] [address] CBCon 04-19-2019 Erythrocyte distribution width (RBC) [Ratio] 14.0 % Normal 11.5-14.5 [facility] ([place] Comment on above: Performed By: #### C BC, ADIFF, ANEU #### [place] [address] #### BMP, GFR #### [place] [address] Hematocrit (Bld) [Volume fraction] 33.0 % Low 42.0-52.0 [facility] ([place] Comment on above: Performed By: #### C BC, ADIFF, ANEU #### [place] [address] #### BMP, GFR #### [place] [address] Hemoglobin (Bld) [Mass/Vol] 11.1 G/dL Low 14.0-18.0 [facility] ([place] Comment on above: Performed By: #### C AYAAN ALAS, ANEU #### [place] [address] #### BMP, GFR #### [place] [address] MCH (RBC) [Entitic mass] 30.1 pg Normal 27.0-31.2 [facility] ([place]) Comment on above: Performed By: #### C BC, ADIFF, ANEU #### [address] [address] #### BMP, GFR #### [place] [id number] MCHC (RBC) [Mass/Vol] 33.6 G/dL Normal 31.8-35.4 [facility] ([place]) Comment on above: Performed By: #### C BC, ADIFF, ANEU #### [place] [id number] #### BMP, GFR #### [address] [address] MCV (RBC) [Entitic vol] 89.6 fL Normal 80.0-94.0 [facility] ([place] Comment on above: Performed By: #### C BC, ADIFF, ANEU #### [place] [id number] #### BMP, GFR #### [address] [address] Platelet mean volume (Bld) [Entitic vol] 7.9 fL Normal 7.4-10.4 [facility] ([place] Comment on above: Performed By: #### C BC, ADIFF, ANEU #### [place] [address] #### BMP, GFR #### [address] [address] Platelets (Bld) [#/Vol] 216 10 3/mcL Normal 130-400 [facility] ([place] Comment on above: Performed By: #### C BC, ADIFF, ANEU #### [place] [address] #### BMP, GFR #### [address] [address] RBC (Bld) [#/Vol] 3.68 10 6/mcL Low 4.04-6.13 [facility] ([place] Comment on above: Performed By: #### C BC, ADIFF, ANEU #### [place] [address] #### BMP, GFR #### [address] [address] WBC (Bld) [#/Vol] 15.90 10 3/mcL High 4.60-10.80 [facility] ([place] Comment on above: Performed By: #### C BC, ADIFF, ANEU #### [place] [address] #### BMP, GFR #### [facility] [address] [place], [place] [id number] XR KNEE 1 OR 2 VIEWS RIGHTon [...] Date: 04/19/2019 2:48:55 AM Ordering Provider:Terry Figueroa [facility] ([place] CT KNEE W/O CONTRAST RIGHTon 04-04-2019 CT KNEE W/O CONTRAST RIGHT ORIGINAL \\H\\CT of the right knee without contrast Technique:\\N\\ Axial images of the knee are obtained [...] ELSEWHERE CLASSIFIED RIGHT KNEE, chronic knee pain \\H\\Findings:\\N\\ Medial compartment: Subchondral sclerosis with marginal spurring [...] images of the ankle are also obtained. \\H\\\\N\\\\H\\IMPRESSION:\\N\\ 1. 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 2. Moderate joint effusion. Small ossific loose body in the joint. Interpreted By: Jerson Garsia MD Preliminary Report By: Jerson Garsia MD Electronically Signed By: Jerson Garsia MD Dictated Date: 04/03/2019 10:22:08 PM Prelim Date: 04/03/2019 10:22:08 PM Sign Date: 04/03/2019 10:42:25 PM Ordering Provider:Terry Hayes [facility] ([place] .Auto Diffon 04-03-2019 Ammonia (P) [Mass/Vol] 0.50 10 3/mcL Normal 0.15-1.00 [facility] ([place] Comment on above: Performed By: #### C BCGIORGIOIFF, ANEU #### [place] [address] #### BMP, GFR #### [address] [address] Basophils (Bld) [#/Vol] 0.00 10 3/mcL Normal 0.00-0.19 [facility] ([place] Comment on above: Performed By: #### C BC ADIFF, ANEU #### [place] [address] #### BMP, GFR #### [address] [address] Basophils/100 WBC (Bld) 0.5 % Normal 0.0-2.5 [facility] ([place] Comment on above: Performed By: #### C BCGIORGIOIFF, ANEU #### [place] [address] #### BMP, GFR #### [address] [address] Eosinophils (Bld) [#/Vol] 0.10 10 3/mcL Normal 0.00-0.40 [facility] ([place] Comment on above: Performed By: #### C BC, ADIFF, ANEU #### [place] [address] #### BMP, GFR #### [address] [address] Eosinophils/100 WBC (Bld) 1.1 % Normal 0.0-7.0 [facility] ([place] Comment on above: Performed By: #### C BC, ADIFF, ANEU #### [address] [address] #### BMP, GFR #### [address] [address] Lymphocytes (Bld) [#/Vol] 1.30 10 3/mcL Normal 0.77-3.85 [facility] ([place]) Comment on above: Performed By: #### C BC, ADIFF, ANEU #### [address] [address] #### BMP, GFR #### [address] [address] Lymphocytes/100 WBC (Bld) 14.2 % Normal 10.0-50.0 [facility] ([place] Comment on above: Performed By: #### C BC ADIFF, ANEU #### [address] [address] #### BMP, GFR #### [address] [address] Monocytes/100 WBC (Bld) 5.5 % Normal 1.7-13.0 [facility] ([place] Comment on above: Performed By: #### C BC, ADIFF, ANEU #### [address] [address] #### BMP, GFR #### [address] [address] Neutrophils/100 WBC (Bld) 78.7 % Normal 37.0-80.0 [facility] ([place] Comment on above: Performed By: #### C BC, ADIFF, ANEU #### [address] [address] #### BMP, GFR #### [address] [address] .GFRon 04-03-2019 GFR 80 ml/min/1.73sqm Normal [facility] ([place]) Comment on above: Result Comment: GFR [...] Performed By: #### C BCAYAAN, ANEU #### [address] [address] #### BMP, GFR #### [address] [address] GFR Non- 66 ml/min/1.73sqm Normal [facility] ([place] Comment on above: Result Comment: GFR Population [...] Performed By: #### C BCAYAAN, ANEU #### [address] [address] #### BMP, GFR #### [address] [address] .NEUABSon 04-03-2019 Neutrophils (Bld) [#/Vol] 7.10 10 3/mcL High 2.85-6.16 [facility] ([place] Comment on above: Performed By: #### C BC, ADIFF, ANEU #### [address] [address] #### BMP, GFR #### [address] [address] BMPon 04-03-2019 Calcium [Mass/Vol] 8.5 mg/dL Normal 8.4-10.2 [facility] ([place]) Comment on above: Performed By: #### C BC, ADIFF, ANEU #### [address] [address] #### BMP, GFR #### [address] [address] Chloride [Moles/Vol] 105 mmol/L Normal 98-107 [facility] ([place]) Comment on above: Performed By: #### C BC, ADIFF, ANEU #### [address] [address] #### BMP, GFR #### [address] [address] CO2 [Moles/Vol] 28 mmol/L Normal 23-31 [facility] ([place] Comment on above: Performed By: #### C BC, ADIFF, ANEU #### [address] [address] #### BMP, GFR #### [address] [address] Creatinine [Mass/Vol] 1.12 mg/dL Normal 0.70-1.30 [facility] ([place]) Comment on above: Performed By: #### C BC, ADIFF, ANEU #### [address] [address] #### BMP, GFR #### [address] [address] Electrolyte Balance 11.0 mEq/L Normal [facility] ([place] Comment on above: Performed By: #### C BC, ADIFF, ANEU #### [address] [address] #### BMP, GFR #### [address] [address] Glucose [Mass/Vol] 108 mg/dL Normal 80-115 [facility] ([place] Comment on above: Performed By: #### C BC, ADIFF, ANEU #### [address] [address] #### BMP, GFR #### [address] [address] Potassium [Moles/Vol] 4.0 mmol/L Normal 3.5-5.1 [facility] ([place] Comment on above: Performed By: #### C BC, ADIFF, ANEU #### [address] [address] #### BMP, GFR #### [address] [address] Sodium [Moles/Vol] 144 mmol/L Normal 136-145 [facility] ([place] Comment on above: Performed By: #### C BC, ADIFF, ANEU #### [address] [address] #### BMP, GFR #### [address] [address] Urea nitrogen [Mass/Vol] 21 mg/dL High 7-18 [facility] ([place] Comment on above: Performed By: #### C BC, ADIFF, ANEU #### [address] [address] #### BMP, GFR #### [address] [address] Urea nitrogen/Creatinine [Mass ratio] 19 ratio Normal 7-27 [facility] ([place] Comment on above: Performed By: #### C BC, ADIFF, ANEU #### [address] [address] #### BMP, GFR #### [address] [address] CBCon 04-03-2019 Erythrocyte distribution width (RBC) [Ratio] 13.9 % Normal 11.5-14.5 [facility] ([place] Comment on above: Performed By: #### C BC, ADIFF, ANEU #### [address] [address] #### BMP, GFR #### [address] [address] Hematocrit (Bld) [Volume fraction] 38.6 % Low 42.0-52.0 [facility] ([place] Comment on above: Performed By: #### C BC, ADIFF, ANEU #### [address] [address] #### BMP, GFR #### [address] [address] Hemoglobin (Bld) [Mass/Vol] 12.8 G/dL Low 14.0-18.0 [facility] ([place]) Comment on above: Performed By: #### C BISHOP, ADIFF, ANEU #### [place] [address] #### BMP, GFR #### [address] [address] MCH (RBC) [Entitic mass] 29.5 pg Normal 27.0-31.2 [facility] ([place] Comment on above: Performed By: #### C AYAAN ALAS, ANEU #### [address] [address] #### BMP, GFR #### [address] [address] MCHC (RBC) [Mass/Vol] 33.3 G/dL Normal 31.8-35.4 [facility] ([place]) Comment on above: Performed By: #### C BC, ADIFF, ANEU #### [address] [address] #### BMP, GFR #### [address] [address] MCV (RBC) [Entitic vol] 88.5 fL Normal 80.0-94.0 [facility] ([place] Comment on above: Performed By: #### C BC, ADIFF, ANEU #### [address] [address] #### BMP, GFR #### [address] [address] Platelet mean volume (Bld) [Entitic vol] 8.0 fL Normal 7.4-10.4 [facility] ([place] Comment on above: Performed By: #### C BC, ADIFF, ANEU #### [place] [address] #### BMP, GFR #### [address] [address] Platelets (Bld) [#/Vol] 251 10 3/mcL Normal 130-400 [facility] ([place] Comment on above: Performed By: #### C BC, ADIFF, ANEU #### [place] [address] #### BMP, GFR #### [address] [address] RBC (Bld) [#/Vol] 4.36 10 6/mcL Normal 4.04-6.13 [facility] ([place] Comment on above: Performed By: #### C BC, ADIFF, ANEU #### [place] [address] #### BMP, GFR #### [address] [address] WBC (Bld) [#/Vol] 9.10 10 3/mcL Normal 4.60-10.80 [facility] ([place] Comment on above: Performed By: #### C BC, ADIFF, ANEU #### [place] [address] #### BMP, GFR #### [address] [address] Vital Signs Date Time Vital Sign Value Performing Clinician Liana angelo 02-07-2025 15:18-0400 Body height 189.2 cm Dominguez Ortega MD Work Phone: [facility] [place] 02-07-2025 15:18-0400 Body mass index (BMI) [Ratio] 37.24 kg/m2 Dominguez Ortega MD Work Phone: [facility] 02-07-2025 15:18-0400 Body weight 133.36 kg Dominguez Ortega MD Work Phone: [facility] Comment on above: verbal 02-07-2025 15:18-0400 Diastolic blood pressure 88 mm[Hg] Dominguez Ortega MD Work Phone: [facility] 02-07-2025 15:18-0400 Heart rate 63 /min Dominguez Ortega MD Work Phone: [facility] 02-07-2025 15:18-0400 Systolic blood pressure 136 mm[Hg] Dominguez Ortega MD Work Phone: [facility] 02-07-2025 14:30-0400 Body height 188 cm [place] [employer] - [employer]OR AND WRINGER OPERATOR Work Phone: [facility] 02-07-2025 14:30-0400 Body mass index (BMI) [Ratio] 37.75 kg/m2 [place] [employer] - EXTRACTOR AND WRINGER OPERATOR Work Phone: [facility] 02-07-2025 14:30-0400 Body weight 133.36 kg [place] [employer] - EXTRACTOR AND WRINGER OPERATOR Work Phone: [facility] 11-15-2024 03:06-0400 Body temperature 98.2 [degF] Dr. Finn Ferrell MD Work Phone: [facility] 11-15-2024 03:06-0400 Diastolic blood pressure 71 mm[Hg] Dr. Finn Ferrell MD Work Phone: [facility] 11-15-2024 03:06-0400 Heart rate 53 /min Dr. Finn Ferrell MD Work Phone: [facility] 11-15-2024 03:06-0400 Respiratory rate 16 /min Dr. Finn Ferrell MD Work Phone: [facility] 11-15-2024 03:06-0400 SaO2% (BldA) [Mass fraction] 95 % Dr. Finn Ferrell MD Work Phone: [facility] 11-15-2024 03:06-0400 Systolic blood pressure 116 mm[Hg] Dr. Finn Ferrell MD Work Phone: [facility] 11-14-2024 23:36-0400 Body mass index (BMI) [Ratio] 39.3 kg/m2 Dr. Finn Ferrell MD Work Phone: [facility] 11-14-2024 23:36-0400 Body weight 138.[address] Finn Ferrell MD Work Phone: [facility] 11-14-2024 23:14-0400 Body height 187.[address] Finn Ferrell MD Work Phone: [facility] 09-28-2024 11:23-0400 Body height 188 cm [place] [employer]TER - EXTRACTOR AND WRINGER OPERATOR Work Phone: [facility] 09-28-2024 11:23-0400 Body mass index (BMI) [Ratio] 38.88 kg/m2 [place] TILE AND MARBLE SETTER - EXTRACTOR AND WRINGER OPERATOR Work Phone: [facility] 09-28-2024 11:23-0400 Body weight 137.35 kg [place] TILE AND MARBLE SETTER - EXTRACTOR AND WRINGER OPERATOR Work Phone: [facility] 09-28-2024 11:23-0400 Diastolic blood pressure 82 mm[Hg] [place] TILE AND MARBLE SETTER - EXTRACTOR AND WRINGER OPERATOR Work Phone: [facility] 09-28-2024 11:23-0400 Heart rate 60 /min [place] TILE AND MARBLE SETTER - EXTRACTOR AND WRINGER OPERATOR Work Phone: [facility] 09-28-2024 11:23-0400 SaO2% (BldA) [Mass fraction] 96 % [place] TILE AND MARBLE SETTER - EXTRACTOR AND WRINGER OPERATOR Work Phone: [facility] 09-28-2024 11:23-0400 Systolic blood pressure 126 mm[Hg] [place] Valentinle TILE AND MARBLE SETTER - EXTRACTOR AND WRINGER OPERATOR Work Phone: [facility] 09-15-2024 07:50-0400 Body temperature 97.7 [degF] Dominguez Ortega MD Work Phone: [facility] 09-15-2024 07:50-0400 Diastolic blood pressure 67 mm[Hg] Dominguez Ortega MD Work Phone: [facility] 09-15-2024 07:50-0400 Heart rate 63 /min Dominguez Ortega MD Work Phone: [facility] 09-15-2024 07:50-0400 Respiratory rate 16 /min Dominguez Ortega MD Work Phone: [facility] 09-15-2024 07:50-0400 SaO2% (BldA) [Mass fraction] 97 % Dominguez Ortega MD Work Phone: [facility] 09-15-2024 07:50-0400 Systolic blood pressure 142 mm[Hg] Dominguez Ortega MD Work Phone: [facility] 09-15-2024 05:00-0400 Body mass index (BMI) [Ratio] 39.62 kg/m2 Dominguez Ortega MD Work Phone: [facility] 09-15-2024 05:00-0400 Body weight 139.98 kg Dominguez Ortega MD Work Phone: [facility] 09-14-2024 09:28-0400 Body height 188 cm Dominguez Ortega MD Work Phone: [facility] 08-24-2024 14:56-0400 Body height 188 cm [place] APRN - EXTRACTOR AND WRINGER OPERATOR Work Phone: [facility] 08-24-2024 14:56-0400 Body mass index (BMI) [Ratio] 39.03 kg/m2 [place] APRN - EXTRACTOR AND WRINGER OPERATOR Work Phone: [facility] 08-24-2024 14:56-0400 Body weight 137.89 kg [place] TILE AND MARBLE SETTER - EXTRACTOR AND WRINGER OPERATOR Work Phone: [facility] 08-24-2024 14:56-0400 Diastolic blood pressure 70 mm[Hg] [place] TILE AND MARBLE SETTER - EXTRACTOR AND WRINGER OPERATOR Work Phone: [facility] 08-24-2024 14:56-0400 Heart rate 68 /min [place] TILE AND MARBLE SETTER - EXTRACTOR AND WRINGER OPERATOR Work Phone: [facility] 08-24-2024 14:56-0400 Systolic blood pressure 126 mm[Hg] [place] Valentinle TILE AND MARBLE SETTER - EXTRACTOR AND WRINGER OPERATOR Work Phone: [facility] 07-20-2024 13:30-0500 Body height 188 cm [place] Valentinle TILE AND MARBLE SETTER - EXTRACTOR AND WRINGER OPERATOR Work Phone: [facility] 07-20-2024 13:30-0500 Body mass index (BMI) [Ratio] 39.21 kg/m2 [place] TILE AND MARBLE SETTER - EXTRACTOR AND WRINGER OPERATOR Work Phone: [facility] 07-20-2024 13:30-0500 Body weight 138.53 kg [place] Valentinle TILE AND MARBLE SETTER - EXTRACTOR AND WRINGER OPERATOR Work Phone: [facility] 07-20-2024 13:30-0500 Diastolic blood pressure 60 mm[Hg] [place] Valentinle TILE AND MARBLE SETTER - EXTRACTOR AND WRINGER OPERATOR Work Phone: [facility] 07-20-2024 13:30-0500 Heart rate 66 /min [place] TILE AND MARBLE SETTER - EXTRACTOR AND WRINGER OPERATOR Work Phone: [facility] 07-20-2024 13:30-0500 SaO2% (BldA) [Mass fraction] 95 % [place] TILE AND MARBLE SETTER - EXTRACTOR AND WRINGER OPERATOR Work Phone: [facility] 07-20-2024 13:30-0500 Systolic blood pressure 130 mm[Hg] [place] Valentinle TILE AND MARBLE SETTER - EXTRACTOR AND WRINGER OPERATOR Work Phone: [facility] 07-06-2024 14:06-0500 Body height 188 cm [place] TILE AND MARBLE SETTER - EXTRACTOR AND WRINGER OPERATOR Work Phone: [facility] 07-06-2024 14:06-0500 Body mass index (BMI) [Ratio] 39.93 kg/m2 [place] TILE AND MARBLE SETTER - EXTRACTOR AND WRINGER OPERATOR Work Phone: [facility] 07-06-2024 14:06-0500 Body weight 141.07 kg [place] TILE AND MARBLE SETTER - EXTRACTOR AND WRINGER OPERATOR Work Phone: [facility] 07-06-2024 14:06-0500 Diastolic blood pressure 82 mm[Hg] [place] TILE AND MARBLE SETTER - EXTRACTOR AND WRINGER OPERATOR Work Phone: [facility] 07-06-2024 14:06-0500 Heart rate 68 /min [place] TILE AND MARBLE SETTER - EXTRACTOR AND WRINGER OPERATOR Work Phone: [facility] 07-06-2024 14:06-0500 Systolic blood pressure 138 mm[Hg] [place] TILE AND MARBLE SETTER - EXTRACTOR AND WRINGER OPERATOR Work Phone: [facility] 02-01-2024 14:47-0400 Diastolic blood pressure 80 mm[Hg] Dominguez Ortega MD Work Phone: [facility] 02-01-2024 14:47-0400 Systolic blood pressure 142 mm[Hg] Dominguez Ortega MD Work Phone: [facility] 02-01-2024 14:15-0400 Body height 188 cm Dominguez Ortega MD Work Phone: [facility] 02-01-2024 14:15-0400 Body mass index (BMI) [Ratio] 39.54 kg/m2 Dominguez Ortega MD Work Phone: [facility] 02-01-2024 14:15-0400 Body weight 139.71 kg Dominguez Ortega MD Work Phone: [facility] 02-01-2024 14:15-0400 Heart rate 62 /min Dominguez Ortega MD Work Phone: [facility] 02-01-2024 14:15-0400 SaO2% (BldA) [Mass fraction] 99 % Dominguez Ortega MD Work Phone: [facility] 07-29-2023 10:33-0500 Body height 189.2 cm [place] TILE AND MARBLE SETTER - EXTRACTOR AND WRINGER OPERATOR Work Phone: [facility] 07-29-2023 10:33-0500 Body mass index (BMI) [Ratio] 38.51 kg/m2 [place] TILE AND MARBLE SETTER - EXTRACTOR AND WRINGER OPERATOR Work Phone: [facility] 07-29-2023 10:33-0500 Body weight 137.89 kg [place] TILE AND MARBLE SETTER - EXTRACTOR AND WRINGER OPERATOR Work Phone: [facility] 07-29-2023 10:33-0500 Diastolic blood pressure 78 mm[Hg] [place] TILE AND MARBLE SETTER - EXTRACTOR AND WRINGER OPERATOR Work Phone: [facility] 07-29-2023 10:33-0500 Heart rate 60 /min [place] TILE AND MARBLE SETTER - EXTRACTOR AND WRINGER OPERATOR Work Phone: [facility] 07-29-2023 10:33-0500 SaO2% (BldA) [Mass fraction] 96 % [place] TILE AND MARBLE SETTER - EXTRACTOR AND WRINGER OPERATOR Work Phone: [facility] 07-29-2023 10:33-0500 Systolic blood pressure 126 mm[Hg] [place] TILE AND MARBLE SETTER - EXTRACTOR AND WRINGER OPERATOR Work Phone: [facility] 07-09-2023 07:34-0500 Diastolic blood pressure 76 mm[Hg] Dr. Finn Ferrell Work Phone: [facility] 07-09-2023 07:34-0500 Systolic blood pressure 137 mm[Hg] Dr. Finn Ferrell Work Phone: [facility] 07-09-2023 07:32-0500 Body temperature 97.3 [degF] Dr. Finn Ferrell Work Phone: [facility] 07-09-2023 07:32-0500 Heart rate 62 /min Dr. Finn Ferrell Work Phone: [facility] 07-09-2023 07:32-0500 Respiratory rate 16 /min Dr. Finn Ferrell Work Phone: [facility] 07-09-2023 07:32-0500 SaO2% (BldA) [Mass fraction] 97 % Dr. Finn Ferrell Work Phone: [facility] 07-05-2023 14:21-0500 Diastolic blood pressure 67 mm[Hg] Dr. Finn Ferrell Work Phone: [facility] 07-05-2023 14:21-0500 Heart rate 78 /min Dr. Finn Ferrell Work Phone: [facility] 07-05-2023 14:21-0500 Respiratory rate 16 /min Dr. Finn Ferrell Work Phone: [facility] 07-05-2023 14:21-0500 SaO2% (BldA) [Mass fraction] 98 % Dr. Finn Ferrell Work Phone: [facility] 07-05-2023 14:21-0500 Systolic blood pressure 136 mm[Hg] Dr. Finn Ferrell Work Phone: [facility] 07-05-2023 11:45-0500 Body height 187.[address] Finn Ferrell Work Phone: [facility] 07-05-2023 11:45-0500 Body mass index (BMI) [Ratio] 40.2 kg/m2 Dr. Finn Ferrell Work Phone: [facility] 07-05-2023 11:45-0500 Body temperature 97.2 [degF] Dr. Finn Ferrell Work Phone: [facility] 07-05-2023 11:45-0500 Body weight 142.[address] Finn Ferrell Work Phone: [facility] 06-17-2023 11:55-0500 Diastolic blood pressure 70 mm[Hg] France Johnson CNP Work Phone: [facility] 06-17-2023 11:55-0500 Systolic blood pressure 110 mm[Hg] [place] APRN - EXTRACTOR AND WRINGER OPERATOR Work Phone: [facility] 06-17-2023 10:02-0500 Body height 189.2 cm [place] APRN - EXTRACTOR AND WRINGER OPERATOR Work Phone: [facility] 06-17-2023 10:02-0500 Body mass index (BMI) [Ratio] 38.86 kg/m2 [place] TILE AND MARBLE SETTER - EXTRACTOR AND WRINGER OPERATOR Work Phone: [facility] 06-17-2023 10:02-0500 Body weight 139.16 kg [place] TILE AND MARBLE SETTER - EXTRACTOR AND WRINGER OPERATOR Work Phone: [facility] 06-17-2023 10:02-0500 Heart rate 66 /min [place] APRN - EXTRACTOR AND WRINGER OPERATOR Work Phone: [facility] 06-17-2023 10:02-0500 SaO2% (BldA) [Mass fraction] 94 % [place] APRN - EXTRACTOR AND WRINGER OPERATOR Work Phone: [facility] 05-20-2023 11:26-0500 Body temperature 99.2 [degF] Dr. Finn Ferrell Work Phone: [facility] 05-20-2023 11:26-0500 Diastolic blood pressure 86 mm[Hg] Dr. Finn Ferrell Work Phone: [facility] 05-20-2023 11:26-0500 Heart rate 57 /min Dr. Finn Ferrell Work Phone: [facility] 05-20-2023 11:26-0500 Respiratory rate 18 /min Dr. Finn Ferrell Work Phone: [facility] 05-20-2023 11:26-0500 SaO2% (BldA) [Mass fraction] 97 % Dr. Finn Ferrell Work Phone: [facility] 05-20-2023 11:26-0500 Systolic blood pressure 136 mm[Hg] Dr. Finn Ferrell Work Phone: [facility] 05-20-2023 10:00-0500 Body height 187.[address] Finn Ferrell Work Phone: [facility] 05-20-2023 10:00-0500 Body mass index (BMI) [Ratio] 40.1 kg/m2 Dr. Finn Ferrell Work Phone: [facility] 05-20-2023 10:00-0500 Body weight [address] Finn Ferrell Work Phone: [facility] 05-10-2023 10:12-0500 Body height 189.2 cm Tree Gonzales MD Work Phone: [facility] 05-10-2023 10:12-0500 Body mass index (BMI) [Ratio] 38.88 kg/m2 Tree Gonzales MD Work Phone: [facility] 05-10-2023 10:12-0500 Body weight 139.16 kg Tree Gonzales MD Work Phone: [facility] 05-10-2023 10:12-0500 Diastolic blood pressure 86 mm[Hg] Tree Gonzales MD Work Phone: [facility] 05-10-2023 10:12-0500 Heart rate 52 /min Tree Gonzales MD Work Phone: [facility] 05-10-2023 10:12-0500 Respiratory rate 18 /min Tree Gonzales MD Work Phone: [facility] 05-10-2023 10:12-0500 SaO2% (BldA) [Mass fraction] 92 % Tree Gonzales MD Work Phone: [facility] Comment on above: 05-10-2023 10:12-0500 Systolic blood pressure 140 mm[Hg] Tree Gonzales MD Work Phone: [facility] 04-08-2023 09:51-0500 Body height 189.2 cm France Johnson CNP Work Phone: [facility] 04-08-2023 09:51-0500 Body mass index (BMI) [Ratio] 38.86 kg/m2 [place] TILE AND MARBLE SETTER - EXTRACTOR AND WRINGER OPERATOR Work Phone: [facility] 04-08-2023 09:51-0500 Body weight 139.16 kg [place] TILE AND MARBLE SETTER - EXTRACTOR AND WRINGER OPERATOR Work Phone: [facility] 04-08-2023 09:51-0500 Diastolic blood pressure 78 mm[Hg] [place] TILE AND MARBLE SETTER - EXTRACTOR AND WRINGER OPERATOR Work Phone: [facility] 04-08-2023 09:51-0500 Heart rate 68 /min [place] TILE AND MARBLE SETTER - EXTRACTOR AND WRINGER OPERATOR Work Phone: [facility] 04-08-2023 09:51-0500 SaO2% (BldA) [Mass fraction] 97 % [place] APRN - EXTRACTOR AND WRINGER OPERATOR Work Phone: [facility] 04-08-2023 09:51-0500 Systolic blood pressure 124 mm[Hg] [place] APRN - EXTRACTOR AND WRINGER OPERATOR Work Phone: [facility] 04-07-2023 09:19-0500 Body mass index (BMI) [Ratio] 39.2 kg/m2 Dr. Finn Ferrell Work Phone: [facility] 04-07-2023 09:19-0500 Body weight 138.[address] Finn Ferrell Work Phone: [facility] 04-07-2023 09:19-0500 Diastolic blood pressure 75 mm[Hg] Dr. Finn Ferrell Work Phone: [facility] 04-07-2023 09:19-0500 Heart rate 71 /min Dr. Finn Ferrell Work Phone: [facility] 04-07-2023 09:19-0500 Respiratory rate 17 /min Dr. Finn Ferrell Work Phone: [facility] 04-07-2023 09:19-0500 SaO2% (BldA) [Mass fraction] 95 % Dr. Finn Ferrell Work Phone: [facility] 04-07-2023 09:19-0500 Systolic blood pressure 133 mm[Hg] Dr. Finn Ferrell Work Phone: [facility] 03-29-2023 13:10-0500 Body height 189.2 cm Chris Boyce MD Work Phone: [facility] 03-29-2023 13:10-0500 Body mass index (BMI) [Ratio] 39.32 kg/m2 Chris Boyce MD Work Phone: [facility] 03-29-2023 13:10-0500 Body weight 140.8 kg Chris Boyce MD Work Phone: [facility] 03-29-2023 13:10-0500 Diastolic blood pressure 74 mm[Hg] Chris Boyce MD Work Phone: [facility] 03-29-2023 13:10-0500 Heart rate 63 /min Chris Boyce MD Work Phone: [facility] 03-29-2023 13:10-0500 Respiratory rate 18 /min Chris Boyce MD Work Phone: [facility] 03-29-2023 13:10-0500 SaO2% (BldA) [Mass fraction] 95 % Chris Boyce MD Work Phone: [facility] Comment on above: 03-29-2023 13:10-0500 Systolic blood pressure 126 mm[Hg] Chris Boyce MD Work Phone: [facility] 03-18-2023 10:41-0400 Body height 189.2 cm France Johnson CNP Work Phone: [facility] 03-18-2023 10:41-0400 Body mass index (BMI) [Ratio] 38.91 kg/m2 France Johnson CNP Work Phone: [facility] 03-18-2023 10:41-0400 Body weight 139.34 kg rFance Johnson CNP Work Phone: [facility] 03-18-2023 10:41-0400 Diastolic blood pressure 74 mm[Hg] [place] TILE AND MARBLE SETTER - EXTRACTOR AND WRINGER OPERATOR Work Phone: [facility] 03-18-2023 10:41-0400 Heart rate 64 /min [place] TILE AND MARBLE SETTER - EXTRACTOR AND WRINGER OPERATOR Work Phone: [facility] 03-18-2023 10:41-0400 SaO2% (BldA) [Mass fraction] 97 % [place] TILE AND MARBLE SETTER - EXTRACTOR AND WRINGER OPERATOR Work Phone: [facility] 03-18-2023 10:41-0400 Systolic blood pressure 122 mm[Hg] [place] TILE AND MARBLE SETTER - EXTRACTOR AND WRINGER OPERATOR Work Phone: [facility] 03-01-2023 11:15-0400 Diastolic blood pressure 73 mm[Hg] Zoie Gonzales MD Work Phone: [facility] 03-01-2023 11:15-0400 Heart rate 63 /min Zoie Gonzales MD Work Phone: [facility] 03-01-2023 11:15-0400 Respiratory rate 14 /min Zoie Gonzales MD Work Phone: [facility] 03-01-2023 11:15-0400 Systolic blood pressure 133 mm[Hg] Zoie Gonzales MD Work Phone: [facility] 03-01-2023 08:55-0400 Body temperature 97 [degF] Zioe Gonzales MD Work Phone: [facility] 03-01-2023 07:12-0400 Body height 188 cm Zoie Gonzales MD Work Phone: [facility] 03-01-2023 07:12-0400 Body mass index (BMI) [Ratio] 39.54 kg/m2 Zoie Gonzales MD Work Phone: [facility] 03-01-2023 07:12-0400 Body weight 139.71 kg Zoie Gonzales MD Work Phone: [facility] 03-01-2023 07:12-0400 SaO2% (BldA) [Mass fraction] 99 % Zoie Gonzales MD Work Phone: [facility] 02-22-2023 13:33-0400 Body height 188 cm Zoie Gonzales MD Work Phone: [facility] 02-22-2023 13:33-0400 Body mass index (BMI) [Ratio] 39.57 kg/m2 Zoie Gonzales MD Work Phone: [facility] 02-22-2023 13:33-0400 Body weight 139.8 kg Zoie Gonzales MD Work Phone: [facility] 02-22-2023 13:33-0400 Diastolic blood pressure 76 mm[Hg] Zoie Gonzales MD Work Phone: [facility] 02-22-2023 13:33-0400 Heart rate 71 /min Zoie Gonzales MD Work Phone: [facility] 02-22-2023 13:33-0400 SaO2% (BldA) [Mass fraction] 96 % Zoie Gonzales MD Work Phone: [facility] 02-22-2023 13:33-0400 Systolic blood pressure 142 mm[Hg] Zoie Gonzales MD Work Phone: [facility] 02-02-2023 08:39-0400 Body height 188 cm Kate Agdig TILE AND MARBLE SETTER - EXTRACTOR AND WRINGER OPERATOR Work Phone: [facility] 02-02-2023 08:39-0400 Body mass index (BMI) [Ratio] 38.65 kg/m2 Kate Agdig TILE AND MARBLE SETTER - EXTRACTOR AND WRINGER OPERATOR Work Phone: [facility] 02-02-2023 08:39-0400 Body weight 136.53 kg Kate Ferdig TILE AND MARBLE SETTER - EXTRACTOR AND WRINGER OPERATOR Work Phone: [facility] 02-02-2023 08:39-0400 Diastolic blood pressure 82 mm[Hg] Kate Ferdig TILE AND MARBLE SETTER - EXTRACTOR AND WRINGER OPERATOR Work Phone: [facility] 02-02-2023 08:39-0400 Heart rate 62 /min Kate Ferdig TILE AND MARBLE SETTER - EXTRACTOR AND WRINGER OPERATOR Work Phone: [facility] 02-02-2023 08:39-0400 SaO2% (BldA) [Mass fraction] 98 % Kate Pelaez TILE AND MARBLE SETTER - EXTRACTOR AND WRINGER OPERATOR Work Phone: [facility] 02-02-2023 08:39-0400 Systolic blood pressure 122 mm[Hg] Kate Pelaez TILE AND MARBLE SETTER - EXTRACTOR AND WRINGER OPERATOR Work Phone: [facility] 12-29-2022 01:09-0400 Diastolic blood pressure 82 mm[Hg] No Primary Care Physician [facility] 12-29-2022 01:09-0400 Heart rate 75 /min No Primary Care Physician [facility] 12-29-2022 01:09-0400 Respiratory rate 18 /min No Primary Care Physician [facility] 12-29-2022 01:09-0400 Systolic blood pressure 135 mm[Hg] No Primary Care Physician [facility] 12-28-2022 22:46-0400 Body height 187.96 cm No Primary Care Physician [facility] 12-28-2022 22:46-0400 Body mass index (BMI) [Ratio] 39.2 kg/m2 No Primary Care Physician [facility] 12-28-2022 22:46-0400 Body temperature 98 [degF] No Primary Care Physician [facility] 12-28-2022 22:46-0400 Body weight 138.4 kg No Primary Care Physician [facility] 12-28-2022 22:46-0400 SaO2% (BldA) [Mass fraction] 97 % No Primary Care Physician [facility] 12-08-2022 15:00-0400 Body temperature 99.5 [degF] Jersey Oneil MD Work Phone: [facility] 12-08-2022 15:00-0400 Diastolic blood pressure 68 mm[Hg] Jersey Oneil MD Work Phone: [facility] 12-08-2022 15:00-0400 Heart rate 68 /min Jersey Oneil MD Work Phone: [facility] 12-08-2022 15:00-0400 Respiratory rate 18 /min Jersey Oneil MD Work Phone: [facility] 12-08-2022 15:00-0400 SaO2% (BldA) [Mass fraction] 96 % Jersey Oneil MD Work Phone: [facility] 12-08-2022 15:00-0400 Systolic blood pressure 112 mm[Hg] Jersey Oneil MD Work Phone: [facility] 12-07-2022 03:23-0400 Body mass index (BMI) [Ratio] 39.92 kg/m2 Jersey Oneil MD Work Phone: [facility] 12-07-2022 03:23-0400 Body weight 141.02 kg Jersey Oneil MD Work Phone: [facility] 12-06-2022 08:00-0400 Diastolic blood pressure 81 mm[Hg] Self Referred [facility] 12-06-2022 08:00-0400 Heart rate 82 /min Self Referred [facility] 12-06-2022 08:00-0400 Respiratory rate 22 /min Self Referred [facility] 12-06-2022 08:00-0400 SaO2% (BldA) [Mass fraction] 94 % Self Referred [facility] 12-06-2022 08:00-0400 Systolic blood pressure 168 mm[Hg] Self Referred [facility] 12-06-2022 06:38-0400 Body temperature 98.1 [degF] Self Referred [facility] 12-05-2022 22:45-0400 Body height 187.96 cm Self Referred [facility] 12-05-2022 22:45-0400 Body mass index (BMI) [Ratio] 41 kg/m2 Self Referred [facility] 12-05-2022 22:45-0400 Body weight 145 kg Self Referred [facility] 12-03-2022 14:21-0400 Body height 188 cm Zoie Gonzales MD Work Phone: [facility] 12-03-2022 14:21-0400 Body mass index (BMI) [Ratio] 39.75 kg/m2 Zoie Gonzales MD Work Phone: [facility] 12-03-2022 14:21-0400 Body weight 140.43 kg Zoie Gonzales MD Work Phone: [facility] 12-03-2022 14:21-0400 Diastolic blood pressure 58 mm[Hg] Zoie Gonzales MD Work Phone: [facility] 12-03-2022 14:21-0400 Heart rate 78 /min Zoie Gonzales MD Work Phone: [facility] 12-03-2022 14:21-0400 SaO2% (BldA) [Mass fraction] 92 % Zoie Gonzales MD Work Phone: [facility] 12-03-2022 14:21-0400 Systolic blood pressure 130 mm[Hg] Zoie Gonzales MD Work Phone: [facility] 11-18-2022 11:26-0400 Body height 188 cm Sadine Oredein TILE AND MARBLE SETTER - EXTRACTOR AND WRINGER OPERATOR Work Phone: [facility] 11-18-2022 11:26-0400 Body mass index (BMI) [Ratio] 37.88 kg/m2 Sadine Oredein TILE AND MARBLE SETTER - EXTRACTOR AND WRINGER OPERATOR Work Phone: [facility] 11-18-2022 11:26-0400 Body weight 133.81 kg Sadine Oredein TILE AND MARBLE SETTER - EXTRACTOR AND WRINGER OPERATOR Work Phone: [facility] 11-11-2022 09:55-0400 Body height 189.2 cm Chris Boyce MD Work Phone: [facility] 11-11-2022 09:55-0400 Body mass index (BMI) [Ratio] 39.18 kg/m2 Chris Boyce MD Work Phone: [facility] 11-11-2022 09:55-0400 Body weight 140.25 kg Chris Boyce MD Work Phone: [facility] 11-11-2022 09:55-0400 Diastolic blood pressure 80 mm[Hg] Chris Boyce MD Work Phone: [facility] 11-11-2022 09:55-0400 Heart rate 71 /min Chris Boyce MD Work Phone: [facility] 11-11-2022 09:55-0400 Respiratory rate 18 /min Chris Boyce MD Work Phone: [facility] 11-11-2022 09:55-0400 SaO2% (BldA) [Mass fraction] 91 % Chris Boyce MD Work Phone: [facility] Comment on above: RA 11-11-2022 09:55-0400 Systolic blood pressure 138 mm[Hg] Chris Boyce MD Work Phone: [facility] 10-27-2022 08:18-0400 Body height 189.[address] Vinayak Ontiveros Work Phone: [facility] 10-27-2022 08:18-0400 Body mass index (BMI) [Ratio] 39.5 kg/m2 Dr. Vinayak Ontiveros Work Phone: [facility] 10-27-2022 08:18-0400 Body temperature 97.5 [degF] Dr. Vinayak Ontiveros Work Phone: [facility] 10-27-2022 08:18-0400 Body weight 141.[address] Vinayak Ontiveros Work Phone: [facility] 10-27-2022 08:18-0400 Diastolic blood pressure 74 mm[Hg] Dr. Vinayak Ontiveros Work Phone: [facility] 10-27-2022 08:18-0400 Heart rate 58 /min Dr. Vinayak Ontiveros Work Phone: [facility] 10-27-2022 08:18-0400 Respiratory rate 18 /min Dr. Vinayak Ontiveros Work Phone: [facility] 10-27-2022 08:18-0400 SaO2% (BldA) [Mass fraction] 95 % Dr. Vinayak Ontiveros Work Phone: [facility] 10-27-2022 08:18-0400 Systolic blood pressure 132 mm[Hg] Dr. Vinayak Ontiveros Work Phone: [facility] 09-28-2022 13:14-0400 Body height 188 cm Sadine Oredein TILE AND MARBLE SETTER - EXTRACTOR AND WRINGER OPERATOR Work Phone: [facility] 09-28-2022 13:14-0400 Body mass index (BMI) [Ratio] 39.54 kg/m2 Sadine Oredein TILE AND MARBLE SETTER - EXTRACTOR AND WRINGER OPERATOR Work Phone: [facility] 09-28-2022 13:14-0400 Body weight 139.71 kg Sadine Oredein TILE AND MARBLE SETTER - EXTRACTOR AND WRINGER OPERATOR Work Phone: [facility] 09-28-2022 13:14-0400 Diastolic blood pressure 72 mm[Hg] Sadine Oredein TILE AND MARBLE SETTER - EXTRACTOR AND WRINGER OPERATOR Work Phone: [facility] 09-28-2022 13:14-0400 Heart rate 66 /min Sadine Oredein TILE AND MARBLE SETTER - EXTRACTOR AND WRINGER OPERATOR Work Phone: [facility] 09-28-2022 13:14-0400 Respiratory rate 20 /min Sadine Oredein TILE AND MARBLE SETTER - EXTRACTOR AND WRINGER OPERATOR Work Phone: [facility] 09-28-2022 13:14-0400 SaO2% (BldA) [Mass fraction] 96 % Sadine Oredein TILE AND MARBLE SETTER - EXTRACTOR AND WRINGER OPERATOR Work Phone: [facility] 09-28-2022 13:14-0400 Systolic blood pressure 138 mm[Hg] Sadine Oredein TILE AND MARBLE SETTER - EXTRACTOR AND WRINGER OPERATOR Work Phone: [facility] 08-21-2022 14:43-0400 Body temperature 97.8 [degF] Dr. Vinayak Ontiveros Work Phone: [facility] 08-21-2022 14:43-0400 Diastolic blood pressure 55 mm[Hg] Dr. Vinayak Ontiveros Work Phone: [facility] 08-21-2022 14:43-0400 Heart rate 82 /min Dr. Vinayak Ontiveros Work Phone: [facility] 08-21-2022 14:43-0400 Respiratory rate 18 /min Dr. Vinayak Ontiveros Work Phone: [facility] 08-21-2022 14:43-0400 SaO2% (BldA) [Mass fraction] 95 % Dr. Vinayak Ontiveros Work Phone: [facility] 08-21-2022 14:43-0400 Systolic blood pressure 117 mm[Hg] Dr. Vinayak Ontiveros Work Phone: [facility] 08-21-2022 06:29-0400 Body mass index (BMI) [Ratio] 39.6 kg/m2 Dr. Vinayak Ontiveros Work Phone: [facility] 08-21-2022 06:29-0400 Body weight 141.[address] Vinayak Ontiveros Work Phone: [facility] 08-21-2022 06:12-0400 Inhaled oxygen flow rate 2 L/min Dr. Vinayak Ontiveros Work Phone: [facility] 08-20-2022 13:18-0400 Body height 189.[address] Vinayak Ontiveros Work Phone: [facility] 07-28-2022 10:42-0500 Body mass index (BMI) [Ratio] 38.7 kg/m2 Dr. Vinayak Ontiveros Work Phone: [facility] 07-28-2022 10:42-0500 Body weight 136.[address] Vinayak Ontiveros Work Phone: [facility] 07-06-2022 14:28-0500 Body height 188 cm Zoie Gonzales MD Work Phone: [facility] 07-06-2022 14:28-0500 Body mass index (BMI) [Ratio] 38.26 kg/m2 Zoie Gonzales MD Work Phone: [facility] 07-06-2022 14:28-0500 Body weight 135.17 kg Zoie Gonzales MD Work Phone: [facility] 04-01-2022 11:20-0500 Body height 187.[address] Vinayak Ontiveros Work Phone: [facility] Work Phone: 04-01-2022 11:20-0500 Body mass index (BMI) [Ratio] 37.7 kg/m2 Dr. Vinayak Ontiveros Work Phone: [facility] Work Phone: 04-01-2022 11:20-0500 Body weight 133.[address] Vinayak Ontiveros Work Phone: [facility] Work Phone: 04-01-2022 11:20-0500 Diastolic blood pressure 62 mm[Hg] Dr. Vinayak Ontiveros Work Phone: [facility] Work Phone: 04-01-2022 11:20-0500 Heart rate 50 /min Dr. Vinayak Ontiveros Work Phone: [facility] Work Phone: 04-01-2022 11:20-0500 SaO2% (BldA) [Mass fraction] 96 % Dr. Vinayak Ontiveros Work Phone: [facility] Work Phone: 04-01-2022 11:20-0500 Systolic blood pressure 108 mm[Hg] Dr. Vinayak Ontiveros Work Phone: [facility] Work Phone: 01-27-2022 07:56-0400 Body mass index (BMI) [Ratio] 38.6 kg/m2 Dr. Vinyaak Ontiveros Work Phone: [facility] Work Phone: 01-27-2022 07:56-0400 Body weight 136.[address] Vinayak Ontiveros Work Phone: [facility] Work Phone: 01-12-2022 13:15-0400 Body temperature 98.9 [degF] Dr. Vinayak Ontiveros Work Phone: [facility] Work Phone: 01-12-2022 13:15-0400 Diastolic blood pressure 59 mm[Hg] Dr. Vinayak Ontiveros Work Phone: [facility] Work Phone: 01-12-2022 13:15-0400 Heart rate 68 /min Dr. Vinayak Ontiveros Work Phone: [facility] Work Phone: 01-12-2022 13:15-0400 Respiratory rate 16 /min Dr. Vinayak Ontiveros Work Phone: [facility] Work Phone: 01-12-2022 13:15-0400 SaO2% (BldA) [Mass fraction] 95 % Dr. Vinayak Ontiveros Work Phone: [facility] Work Phone: 01-12-2022 13:15-0400 Systolic blood pressure 117 mm[Hg] Dr. Vinayak Ontiveros Work Phone: [facility] Work Phone: 01-12-2022 10:42-0400 Body height 187.[address] Vinayak Ontiveros Work Phone: [facility] Work Phone: 01-12-2022 10:42-0400 Body mass index (BMI) [Ratio] 38 kg/m2 Dr. Vinayak Ontiveros Work Phone: [facility] Work Phone: 01-12-2022 10:42-0400 Body weight 134.[address] Vinayak Ontiveros Work Phone: [facility] Work Phone: 12-30-2021 08:52-0400 Body height 189.2 cm Tree Gonzales MD Work Phone: [facility] 12-30-2021 08:52-0400 Body mass index (BMI) [Ratio] 36.86 kg/m2 Tree Gonzales MD Work Phone: [facility] 12-30-2021 08:52-0400 Body weight 132 kg Tree Gonzales MD Work Phone: [facility] 12-29-2021 09:25-0400 Body mass index (BMI) [Ratio] 39.6 kg/m2 Dr. Vinayak Ontiveros Work Phone: [facility] Work Phone: 12-29-2021 09:25-0400 Body weight 136.[address] Vinayak Ontiveros Work Phone: [facility] Work Phone: 12-29-2021 09:25-0400 Diastolic blood pressure 86 mm[Hg] Dr. Vinayak Ontiveros Work Phone: [facility] Work Phone: 12-29-2021 09:25-0400 Heart rate 65 /min Dr. Vinayak Ontiveros Work Phone: [facility] Work Phone: 12-29-2021 09:25-0400 SaO2% (BldA) [Mass fraction] 96 % Dr. Vinayak Ontiveros Work Phone: [facility] Work Phone: 12-29-2021 09:25-0400 Systolic blood pressure 166 mm[Hg] Dr. Vinayak Ontiveros Work Phone: [facility] Work Phone: 12-01-2021 16:00-0400 Diastolic blood pressure 62 mm[Hg] Zoie Gonzales MD Work Phone: [facility] 12-01-2021 16:00-0400 Heart rate 57 /min Zoie Gonzales MD Work Phone: [facility] 12-01-2021 16:00-0400 Respiratory rate 19 /min Zoie Gonzales MD Work Phone: [facility] 12-01-2021 16:00-0400 SaO2% (BldA) [Mass fraction] 95 % Zoie Gonzales MD Work Phone: [facility] 12-01-2021 16:00-0400 Systolic blood pressure 119 mm[Hg] Zoie Gonzales MD Work Phone: [facility] 12-01-2021 11:14-0400 Body temperature 97.2 [degF] Zoie Gonzales MD Work Phone: [facility] 09-10-2021 01:37-0400 Diastolic blood pressure 83 mm[Hg] Dr. Vinayak Ontiveros Work Phone: [facility] Work Phone: 09-10-2021 01:37-0400 Heart rate 55 /min Dr. Vinayak Ontiveros Work Phone: [facility] Work Phone: 09-10-2021 01:37-0400 Respiratory rate 19 /min Dr. Vinayak Ontiveros Work Phone: [facility] Work Phone: 09-10-2021 01:37-0400 SaO2% (BldA) [Mass fraction] 95 % Dr. Vinayak Ontiveros Work Phone: [facility] Work Phone: 09-10-2021 01:37-0400 Systolic blood pressure 128 mm[Hg] Dr. Vinayak Ontiveros Work Phone: [facility] Work Phone: 09-09-2021 23:44-0400 Body height 185.[address] Vinayak Ontiveros Work Phone: [facility] Work Phone: 09-09-2021 23:44-0400 Body mass index (BMI) [Ratio] 41.5 kg/m2 Dr. Vinayak Ontiveros Work Phone: [facility] Work Phone: 09-09-2021 23:44-0400 Body weight [address] Vinayak Ontiveros Work Phone: [facility] Work Phone: 09-09-2021 22:56-0400 Body temperature 98.1 [degF] Dr. Vinayak Ontiveros Work Phone: [facility] Work Phone: 03-18-2021 08:56-0400 Body temperature 98.4 [degF] Zoie Gonzales MD Work Phone: [facility] Work Phone: 03-18-2021 08:56-0400 Heart rate 71 /min Zoie Gonzales MD Work Phone: [facility] Work Phone: 03-18-2021 08:56-0400 SaO2% (BldA) [Mass fraction] 92 % Zoie Gonzales MD Work Phone: [facility] Work Phone: 03-18-2021 00:00-0400 Diastolic blood pressure 39 mm[Hg] Zoie Gonzales MD Work Phone: [facility] Work Phone: 03-18-2021 00:00-0400 Respiratory rate 16 /min Zoie Gonzales MD Work Phone: [facility] Work Phone: 03-18-2021 00:00-0400 Systolic blood pressure 103 mm[Hg] Zoie Gonzales MD Work Phone: [facility] Work Phone: 03-17-2021 07:29-0400 Body height 188 cm Zoie Gonzales MD Work Phone: [employer] Work Phone: 03-17-2021 07:29-0400 Body mass index (BMI) [Ratio] 38.27 kg/m2 Zoie Gonzales MD Work Phone: [facility] Work Phone: 03-17-2021 07:29-0400 Body weight 135.2 kg Zoie Gonzales MD Work Phone: [facility] Work Phone: 09-15-2019 14:50-0400 Body Temperature 98.6 [degF] Justen Martin [facility] [place] 09-15-2019 14:50-0400 BP Diastolic 66 mm[Hg] Justen Martin [facility] [place] 09-15-2019 14:50-0400 BP Systolic 132 mm[Hg] Justen Martin [facility] [place] 09-15-2019 14:50-0400 Pulse (Heart Rate) 61 /min Justen Martin [facility] [place] 09-15-2019 14:50-0400 Pulse Oximetry 100 % [facility] [place] [place] 09-15-2019 14:50-0400 Respiratory Rate 16 /min Justen Martin [facility] 09-15-2019 04:48-0400 BMI (Body Mass Index) 35.23 kg/m2 Justen Martin [facility] [place] 09-15-2019 04:48-0400 Body weight 124.47 [facility] [place] [facility] [place] 09-09-2019 07:55-0400 Body Temperature 97.9 [degF] [facility] [place] [facility] [place] 09-09-2019 07:55-0400 BP Diastolic 74 mm[Hg] [facility] [place] [facility] [place] 09-09-2019 07:55-0400 BP Systolic 133 mm[Hg] [facility] [place] [facility] [place] 09-09-2019 07:55-0400 Pulse (Heart Rate) 61 /min [facility] [place] 09-09-2019 07:55-0400 Pulse Oximetry 96 % Ari Rueda [facility] 09-09-2019 07:55-0400 Respiratory Rate 16 /min [facility] [place] [place] 09-08-2019 04:26-0400 BMI (Body Mass Index) 33.95 kg/m2 [facility] [place] 09-08-2019 04:26-0400 Body weight 119.92 kg [facility] [place] 09-06-2019 09:30-0400 Height 188 cm [facility] [place] Encounters Encounter Date Encounter Type Care Provider Facility Start: 03-06-2025 Encounter for other preprocedural examination Terry Figueroa [facility] Start: 02-07-2025 End: 02-07-2025 Office outpatient visit 15 minutes Dominguez Ortega MD Work Phone: [facility] Comment on above: 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 (Primary Dx); Essential hypertension, benign; Mixed hyperlipidemia Start: 02-07-2025 End: 02-07-2025 ambulatory FINN [facility] Start: 02-07-2025 End: 02-07-2025 Follow-up encounter France Johnson CNP Work Phone: [facility] Comment on above: Transthoracic echoca rdiogram (TTE) complete with contrast, bubble, strain, and 3D PRN Start: 02-07-2025 End: 02-07-2025 Subsequent hospital visit by physician France Johnson CNP Work Phone: [facility] Comment on above: Cardiomyopathy, isch emic Start: 02-07-2025 End: 02-07-[facility] Start: 01-29-2025 End: 01-29-[address] Finn Ferrell MD Work Phone: -Cat Scan [facility] Start: 01-29-2025 End: 01-29-[address] Finn Ferrell MD -Cat Scan [facility] Work Phone: Start: 01-29-2025 End: 01-29-2025 ambulatory Finn Ferrell Facility:[facility] Start: 01-19-2025 End: 01-19-[address] Finn Ferrell MD Work Phone: -Laboratory [facility] Start: 01-19-2025 End: 01-19-[address] Finn Ferrell MD -Laboratory [facility] Start: 01-19-2025 End: 01-19-2025 ambulatory Finn Ferrell Facility:[facility] Start: 01-18-2025 End: 02-22-2025 Telephone encounter Dominguez Ortega MD Work Phone: [facility] Comment on above: Cardiac Clearance Start: 01-15-2025 End: 01-15-[address] Finn Ferrell MD -[facility] Start: 01-15-2025 End: 01-15-2025 Refill Christiane Jenkins TILE AND MARBLE SETTER - EXTRACTOR AND WRINGER OPERATOR Work Phone: [facility] Comment on above: Primary hypertension Start: 01-15-2025 End: 01-15-2025 ambulatory Finn Ferrell Facility:[facility] Start: 12-28-2024 End: 12-28-2024 ambulatory [facility] Start: 11-30-2024 End: 11-30-2024 Refill Dominguez Ortega MD Work Phone: [facility] Comment on above: WATTS (dyspnea on exer tion) Start: 11-17-2024 End: 11-17-2024 ambulatory Bernice Zarate RN [facility] Start: 11-15-2024 End: 11-15-[address] Finn Ferrell MD Work Phone: -[facility] Start: 11-15-2024 End: 11-15-[address] Finn Ferrell MD -[facility] Start: 11-15-2024 End: 11-15-2024 ambulatory Finn Ferrell Facility:[facility] Start: 11-14-2024 End: 11-15-2024 Emergency department patient visit Dr. Finn Ferrell MD Work Phone: -Emergency Department Work Phone: Start: 10-19-2024 End: 10-19-2024 Refill France Spain TILE AND MARBLE SETTER - EXTRACTOR AND WRINGER OPERATOR Work Phone: [facility] Comment on above: Primary hypertension (Primary Dx) Results Start: 10-18-2024 End: 10-18-2024 ambulatory eBrnice Zarate RN [facility] Start: 10-09-2024 End: 10-09-2024 ambulatory Bernice Zarate RN [facility] teagan Comment on above: 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 (Primary Dx); Chronic diastolic heart failure (HCC); Cardiomyopathy, ischemic Start: 09-28-2024 End: 11-06-2024 Telephone encounter France Spain APRN - EXTRACTOR AND WRINGER OPERATOR Work Phone: [facility] Comment on above: Orders Start: 09-28-2024 End: 09-28-2024 Office outpatient visit 25 minutes France Spain APRN - EXTRACTOR AND WRINGER OPERATOR Work Phone: [facility] Comment on above: 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 (Primary Dx); PAF (paroxysmal atrial fibrillation) (HCC); Essential hypertension; Mixed hyperlipidemia; Acute on chronic diastolic congestive heart failure (HCC) Start: 09-28-2024 End: 09-28-2024 ambulatory FINN FERRELL [facility] Start: 09-18-2024 End: 09-18-2024 Documentation procedure Bernice Zarate RN [facility]ha Comment on above: [facility] Outreach Start: 09-14-2024 End: 09-15-2024 Subsequent hospital visit by physician Dominguez Ortega MD Work Phone: [facility] Cardiac Vascular Progressive [facility] 1[facility] Comment on above: Unstable angina (CMS /HCC) (HCC) (Primary Dx); Stented coronary artery; Stage 3a chronic kidney disease (HCC) Start: 09-14-2024 End: 09-15-2024 Unknown DOMINGUEZ ORTEGA [facility] Start: 09-12-2024 End: 09-12-2024 ambulatory Miryam Casas TILE AND MARBLE SETTER - EXTRACTOR AND WRINGER OPERATOR Work Phone: [facility] Start: 09-11-2024 End: 09-11-[address] Finn Ferrell MD Work Phone: -Laboratory Work Phone: Start: 09-11-2024 End: 09-11-2024 ambulatory Finn Ferrell Facility:[facility] Start: 09-07-2024 End: 09-07-2024 Telephone encounter France Spain APRN - RIA Work Phone: [facility] Comment on above: Procedure Start: 08-31-2024 End: 08-31-[address] Finn Ferrell MD Work Phone: [facility] Work Phone: Start: 08-31-2024 End: 08-31-[address] [facility] Start: 08-31-2024 End: 08-31-2024 ambulatory Finn Ferrell Facility:[facility] Start: 08-29-2024 End: 08-29-2024 Telephone encounter France Spain APRN - RIA Work Phone: [facility] Start: 08-24-2024 End: 08-24-2024 Office outpatient visit 25 minutes France Spain APRN - RIA Work Phone: [facility] Comment on above: PAF (paroxysmal atri al fibrillation) (HCC) (Primary Dx); 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; Essential hypertension; Mixed hyperlipidemia; Obesity (BMI 30-39.9) Start: 08-24-2024 End: 08-24-2024 [facility] Start: 08-24-2024 End: 08-24-2024 Subsequent hospital visit by physician France Spain APRN - RIA Work Phone: [facility] Comment on above: Palpitations; PAF (paroxysmal atrial fibrillation) (HCC) 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 ; PAF (paroxysmal atrial fibrillation) (HCC); Essential hypertension; Abnormal EKG Start: 08-24-2024 End: 08-24-2024 [facility] Start: 07-20-2024 End: 07-20-2024 Office outpatient visit 25 minutes France Spain TILE AND MARBLE SETTER - EXTRACTOR AND WRINGER OPERATOR Work Phone: [facility] Comment on above: Palpitations (Primar y Dx); PAF (paroxysmal atrial fibrillation) (HCC); WATTS (dyspnea on exertion) Start: 07-20-2024 End: 07-20-2024 [facility] Start: 07-13-2024 End: 07-13-2024 Telephone encounter France Spain APRN - EXTRACTOR AND WRINGER OPERATOR Work Phone: [facility] Comment on above: Appointment (Cancel and R/S) Start: 07-06-2024 End: 07-06-2024 Office outpatient visit 25 minutes France Spain APRN - EXTRACTOR AND WRINGER OPERATOR Work Phone: [facility] Comment on above: 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 (Primary Dx); PAF (paroxysmal atrial fibrillation) (HCC); Obesity (BMI 30-39.9); Essential hypertension; Mixed hyperlipidemia; Abnormal EKG Start: 07-06-2024 End: 07-06-2024 Telephone encounter Dominguez Ortega MD Work Phone: [facility] Comment on above: Chest Pain Start: 07-06-2024 End: 07-06-2024 [facility] Start: 06-20-2024 End: 06-20-2024 [facility] Facility[facility] Start: 06-20-2024 End: 06-20-2024 Non-patient / Non-visit Dr. Juan Sams MD -[facility] Work Phone: Start: 06-20-2024 End: 06-20-[address] Finn Ferrell MD Work Phone: -Pulmonary Services/Neurology Work Phone: Start: 06-20-2024 End: 06-20-2024 ambulatory [facility] [place] Facility:[facility] Start: 05-22-2024 End: 05-22-2024 Refill Dominguez Ortega MD Work Phone: [facility] Comment on above: 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 Start: 04-28-2024 End: 04-28-2024 Refill Christiane Jenkins TILE AND MARBLE SETTER - EXTRACTOR AND WRINGER OPERATOR Work Phone: [facility] Start: 04-28-2024 End: 04-28-[facility]24 [facility] Start: 04-23-2024 End: 04-23-2024 Emergency department patient visit Andre Rueda Facility:[facility] Start: 04-12-2024 End: 04-12-2024 ambulatory [facility] Facility:[facility] Start: 04-11-2024 End: 04-11-2024 ambulatory [facility] Facility:[facility] Start: 04-08-2024 End: 04-08-2024 [facility] Start: 03-26-2024 End: 03-27-2024 [facility] Start: 03-13-2024 End: 03-14-2024 Refill Kate Pelaez TILE AND MARBLE SETTER - EXTRACTOR AND WRINGER OPERATOR Work Phone: [facility] Comment on above: 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 ; Presence of coronary angioplasty implant and graft Start: 03-13-2024 End: 03-13-2024 [facility] Start: 03-12-2024 End: 03-12-2024 Emergency department patient visit Finn Ferrell Facility:[facility] Start: 03-09-2024 End: 03-09-2024 Refill Jg Dent TILE AND MARBLE SETTER - EXTRACTOR AND WRINGER OPERATOR Work Phone: [facility] Comment on above: Unstable angina (CMS /HCC) (HCC) Paroxysmal atrial fi brillation (HCC); 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) Start: 02-01-2024 End: 02-01-2024 Office outpatient visit 25 minutes Dominguez Ortega MD Work Phone: [facility] Comment on above: Obesity (BMI 30-39.9 ) (Primary Dx); 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; Essential hypertension; Mixed hyperlipidemia Start: 12-20-2023 End: 12-20-2023 Telephone encounter Dominguez Ortega MD Work Phone: [facility] Comment on above: Med Management Start: 09-13-2023 Refill France sheth TILE AND MARBLE SETTER - EXTRACTOR AND WRINGER OPERATOR Work Phone: [facility] Comment on above: Unstable angina (CMS /HCC) (HCC) Start: 07-29-2023 End: 07-29-2023 Office outpatient visit 25 minutes France Spain TILE AND MARBLE SETTER - EXTRACTOR AND WRINGER OPERATOR Work Phone: [facility] Comment on above: 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 (Primary Dx); Essential hypertension, benign; Mixed hyperlipidemia; PAF (paroxysmal atrial fibrillation) (HCC); Chronic diastolic heart failure (HCC) Start: 07-13-2023 End: 07-13-[address] Finn Ferrell Work Phone: [facility] Work Phone: Start: 07-13-2023 End: 07-13-[address] Finn Ferrell Work Phone: [facility] Start: 07-12-2023 End: 07-12-[address] Finn Ferrell Work Phone: [facility] Work Phone: Start: 07-12-2023 End: 07-12-[address] Finn Ferrell Work Phone: [facility]-Nuclear Medicine, [facility] Work Phone: Start: 07-09-2023 End: 07-09-2023 Admission to same day surgery center Dr. Finn Ferrell Work Phone: [facility]-Endoscopy Work Phone: Start: 07-09-2023 End: 07-09-[address] Finn Ferrell Work Phone: [facility] Work Phone: Start: 07-05-2023 End: 07-05-2023 Emergency department patient visit Dr. Finn Ferrell Work Phone: [facility]-Emergency Department Work Phone: Start: 07-01-2023 Telephone encounter Chris zavaleta MD Work Phone: [facility] Comment on above: Return call request/ sleep study orders Start: 06-29-2023 End: 06-29-[address] Finn Ferrell Work Phone: [facility] Work Phone: Start: 06-17-2023 End: 06-17-2023 Office outpatient visit 25 minutes France Spain APRN [facility] Work Phone: [facility] Comment on above: 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 (Primary Dx); Chronic diastolic heart failure (HCC); Essential hypertension, benign; PAF (paroxysmal atrial fibrillation) (HCC); Mixed hyperlipidemia Start: 06-15-2023 Refill Maureen Sung [facility] Start: 05-20-2023 Non-patient / Non-visit Dr. Tnaika Ferrell Work Phone: [facility] Start: 05-20-2023 End: 05-20-2023 Admission to same day surgery center Dr. Finn Ferrell Work Phone: [facility]-Endoscopy Work Phone: Start: 05-20-2023 End: 05-20-[address] 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 Finn Ferrell Work Phone: [facility] Work Phone: Start: 04-08-2023 End: 04-08-2023 Office outpatient visit 25 minutes [place] TILE AND MARBLE SETTER - EXTRACTOR AND WRINGER OPERATOR Work Phone: [facility] Comment on above: 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 (Primary Dx); Chronic diastolic heart failure (HCC); Essential hypertension, benign; PAF (paroxysmal atrial fibrillation) (HCC); Mixed hyperlipidemia Start: 04-07-2023 End: 04-07-[address] Finn Ferrell Work Phone: [facility] Work Phone: Start: 04-01-2023 Myrtle marrufo MD Work Phone: [facility] Start: 03-29-2023 End: 03-29-2023 Office outpatient visit 15 minutes Chris Boyce MD Work Phone: [facility] Comment on above: HIPOLITO (obstructive sle ep apnea) (Primary Dx) Start: 03-29-2023 End: 03-29-[address] Finn Ferrell Work Phone: [facility] Work Phone: Start: 03-29-2023 End: 03-29-[address] Finn Ferrell Work Phone: [facility], [facility] Work Phone: Start: 03-24-2023 End: 03-24-[address] Finn Ferrell Work Phone: [facility] Work Phone: Start: 03-24-2023 End: 03-24-[address] Finn Ferrell Work Phone: [facility] Work Phone: Start: 03-18-2023 End: 03-18-2023 Office outpatient visit 25 minutes [place] TILE AND MARBLE SETTER - EXTRACTOR AND WRINGER OPERATOR Work Phone: [facility] Comment on above: 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 (Primary Dx); Essential hypertension, benign; Chronic diastolic heart failure (HCC); PAF (paroxysmal atrial fibrillation) ([facility]); Mixed hyperlipidemia Start: 03-01-2023 End: 03-01-2023 Subsequent hospital visit by physician Zoie Gonzales MD Work Phone: [facility] Cath/EP Lab Comment on above: Atherosclerotic hear t disease of pauma coronary artery with other forms of angina pectoris ([facility]) Start: 02-24-2023 ambulatory [place] TILE AND MARBLE SETTER - EXTRACTOR AND WRINGER OPERATOR Work Phone: [facility] Start: 02-22-2023 End: 02-22-2023 Office outpatient visit 25 minutes Zoie Gonzales MD Work Phone: [facility] Comment on above: Atherosclerotic hear t disease of pauma coronary artery with other forms of angina pectoris (HCC); NSTEMI (non-ST elevated myocardial infarction) ([facility]/HCC) ([facility]); Hypertension, unspecified type; PAF (paroxysmal atrial fibrillation) (HCC) Start: 02-19-2023 End: 02-19-2023 ambulatory [facility] Work Phone: Start: 02-19-2023 End: 02-19-[address] Finn Ferrell Work Phone: [facility] Work Phone: Start: 02-09-2023 Telephone encounter Zoie Gonzales MD Work Phone: [facility] Comment on above: Med Management Start: 02-05-2023 End: 02-05-2023 ambulatory No Primary Care Physician [facility] Work Phone: Start: 02-05-2023 End: 02-05-2023 Patient encounter procedure No Primary Care Physician [facility], [place] Work Phone: Start: 02-02-2023 End: 02-02-2023 Office outpatient visit 25 minutes Kate Agheri TILE AND MARBLE SETTER [employer] Work Phone: [facility] Comment on above: WATTS (dyspnea on exer tion) (Primary Dx); 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; PAF (paroxysmal atrial fibrillation) (CMS/HCC) (HCC); 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; Stage 3a chronic kidney disease ([facility]); Primary hypertension; Other hyperlipidemia; Presence of coronary angioplasty implant and graft Start: 01-27-2023 Refill [place] TILE AND MARBLE SETTER - [employer] Work Phone: [facility] Comment on above: Presence of coronary angioplasty implant and graft Start: 01-27-2023 End: 01-27-2023 ambulatory No Primary Care Physician [facility] Work Phone: Start: 01-27-2023 End: 01-27-2023 Patient encounter procedure No Primary Care Physician [facility] Work Phone: Start: 01-26-2023 Telephone encounter Zoie Gonzales MD Work Phone: [facility] Comment on above: symptoms Start: 01-01-2023 Telephone encounter [place] TILE AND MARBLE SETTER - EXTRACTOR AND WRINGER OPERATOR Work Phone: [facility] Comment on above: hematoma Start: 12-30-2022 Orders Only [place] TILE AND MARBLE SETTER - EXTRACTOR AND WRINGER OPERATOR Work Phone: [facility] Start: 12-28-2022 End: 12-29-2022 Emergency department patient visit No Primary Care Physician [facility] Work Phone: Start: 12-14-2022 End: 12-14-2022 ambulatory No Primary Care Physician [facility] Work Phone: Start: 12-14-2022 End: 12-14-2022 Patient encounter procedure No Primary Care Physician [facility] Start: 12-08-2022 Orders Only Patricia cole TILE AND MARBLE SETTER - EXTRACTOR AND WRINGER OPERATOR Work Phone: [facility] Comment on above: Renal insufficiency (Primary Dx) Start: 12-07-2022 Office outpatient vi sit 10 minutes Chris Boyce MD Work Phone: [facility] Comment on above: HIPOLITO (obstructive sle ep apnea) (Primary Dx) Start: 12-06-2022 End: 12-08-2022 Evaluation and management of inpatient Jersey Oneil MD Work Phone: [facility] Comment on above: Chest pain (Primary Dx) Start: 12-06-2022 Non-patient / Non-visit Self Referre d [facility] [facility] Work Phone: Start: 12-05-2022 End: 12-06-2022 Emergency department patient visit Self Referred [facility] Work Phone: Start: 12-03-2022 End: 12-03-2022 Office outpatient visit 25 minutes Zoie Gonzales MD Work Phone: [facility] Comment on above: 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 ; Primary hypertension; NSTEMI (non-ST elevated myocardial infarction) ([facility]/HCC) ([facility]); PAF (paroxysmal atrial fibrillation) ([facility]) ([facility]); Other hyperlipidemia Start: 11-25-2022 End: 11-25-2022 ambulatory Self Referred [facility] Work Phone: Start: 11-25-2022 End: 11-25-2022 Patient encounter procedure Self Referred [facility] Start: 11-20-2022 End: 11-21-2022 ambulatory Chris Boyce MD Work Phone: [facility] Comment on above: HIPOLITO (obstructive sle ep apnea) Start: 11-18-2022 End: 11-18-2022 Subsequent hospital visit by physician Samra Gonzalez TILE AND MARBLE SETTER - EXTRACTOR AND WRINGER OPERATOR Work Phone: [facility] Comment on above: Localized edema Start: 11-11-2022 End: 11-11-2022 Office outpatient visit 15 minutes Chris Boyce MD Work Phone: [facility] Comment on above: HIPOLITO (obstructive sle ep apnea) (Primary Dx); Transient disorder of initiating or maintaining sleep Start: 10-27-2022 End: 10-27-[address] Vinayak Ontiveros Work Phone: [facility] Work Phone: Start: 10-27-2022 End: 10-27-[address] Vinayak Ontiveros Work Phone: [facility] Start: 10-27-2022 End: 10-27-[address] Vinayak Ontiveros Work Phone: [facility] Start: 10-22-2022 End: 10-22-[address] Vinayak Ontiveros Work Phone: [facility] Work Phone: Start: 10-22-2022 End: 10-22-[address] Vinayak Ontiveros Work Phone: [facility] Start: 10-14-2022 Documentation procedure Samra Gonzalez TILE AND MARBLE SETTER - EXTRACTOR AND WRINGER OPERATOR Work Phone: [facility] Start: 10-06-2022 End: 10-06-[address] Vinayak Ontiveros Work Phone: [facility] Start: 10-01-2022 Orders Only Samra Mart in TILE AND MARBLE SETTER - EXTRACTOR AND WRINGER OPERATOR Work Phone: [facility] Comment on above: WATTS (dyspnea on exer tion) (Primary Dx); Localized edema Start: 09-29-2022 End: 09-29-2022 ambulatory No Primary Care Physician [facility] Work Phone: Start: 09-29-2022 End: 09-29-[address] [facility] Start: 09-28-2022 End: 09-28-2022 Office outpatient visit 25 minutes Samra Martkashif TILE AND MARBLE SETTER - EXTRACTOR AND WRINGER OPERATOR Work Phone: [facility] Comment on above: Coronary artery dise ase involving pauma coronary artery of pauma heart without angina pectoris (Primary Dx); Localized edema; PAF (paroxysmal atrial fibrillation) (CMS/HCC) (HCC); Primary hypertension; Chronic obstructive pulmonary disease, unspecified COPD type ([facility]); WATTS (dyspnea on exertion); Shortness of breath on exertion Start: 09-25-2022 End: 09-25-[address] Vinayak Ontiveros Work Phone: [facility] Work Phone: Start: 09-25-2022 End: 09-25-[address] Vinayak Ontiveros Work Phone: [facility] Start: 09-22-2022 End: 09-22-[address] Vinayak Ontiveros Work Phone: [facility] Work Phone: Start: 09-22-2022 End: 09-22-[address] Vinayak Ontiveros Work Phone: [facility] Start: 08-21-2022 Non-patient / Non-visit Dr. Billy Ontiveros Work Phone: [facility] Start: 08-20-2022 Non-patient / Non-visit Dr. Billy Ontiveros Work Phone: [facility] Start: 08-20-2022 End: 08-20-2022 Non-patient / Non-visit Dr. Vinayak Ontiveros Work Phone: [facility] Start: 08-20-2022 End: 08-21-2022 Evaluation and management of inpatient Dr. Vinayak [facility]iveros [facility] Start: 08-20-2022 End: 08-21-[address] Vinyaak Ontiveros Work Phone: [facility] Work Phone: Start: 08-12-2022 End: 08-12-[address] Vinayak Ontiveros Work Phone: [facility] Start: 07-28-2022 End: 07-28-[address] Vinayak Ontiveros Work Phone: [facility] Start: 07-06-2022 End: 07-06-2022 Office outpatient visit 25 minutes Zoie Gonzales MD Work Phone: [facility] Comment on above: 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 ; Primary hypertension; PAF (paroxysmal atrial fibrillation) (CMS/HCC) (HCC); Other hyperlipidemia Start: 05-20-2022 End: 05-20-[address] Vinayak Ontiveros Work Phone: [facility] Start: 05-19-2022 End: 05-19-[address] Vinayak Ontiveros Work Phone: [facility] Start: 04-01-2022 End: 04-01-[address] Vinayak Ontiveros Work Phone: [facility] Work Phone: Start: 04-01-2022 End: 04-01-[address] Vinayak Ontiveros Work Phone: [facility] Start: 01-27-2022 End: 01-27-[address] Vinayak Ontiveros Work Phone: [facility] Start: 01-12-2022 Non-patient / Non-visit Dr. Billy Ontiveros Work Phone: [facility] Start: 01-12-2022 End: 01-12-2022 Admission to same day surgery center Dr. Vinayak Ontiveros Work Phone: [facility]-Endoscopy Start: 01-12-2022 End: 01-12-2022 Non-patient / Non-visit Dr. Vinayak Ontiveros Work Phone: [facility] Start: 12-30-2021 End: 12-30-2021 Subsequent hospital visit by physician Tree Gonzales MD Work Phone: [facility] Comment on above: Chronic obstructive pulmonary disease, unspecified (HCC); COPD with asthma (HCC) Start: 12-29-2021 End: 12-29-[address] Vinayak Ontiveros Work Phone: [facility] Start: 12-01-2021 End: 12-01-2021 Subsequent hospital visit by physician Zoie Gonzales MD Work Phone: [facility] [facility] Comment on above: Arrived Start: 10-31-2021 End: 10-31-2021 Patient encounter procedure [facility] Start: 10-09-2021 End: 10-09-[address] Vinayak Ontiveros Work Phone: [facility]-Radiology, [facility] Start: 09-09-2021 End: 09-10-2021 Emergency department patient visit Dr. Vinayak Ontiveros Work Phone: [facility]-Emergency Department Start: 08-01-2021 Non-patient / Non-visit Dr. Billy Ontiveros Work Phone: [facility] Start: 08-01-2021 End: 08-01-[address] Vinayak Ontiveros Work Phone: [facility]-Pulmonary Services/Neurology Start: 07-02-2021 End: 07-02-[address] Vinayak Ontiveros Work Phone: [facility], [facility] Start: 05-07-2021 End: 05-07-2021 Subsequent hospital visit by physician Reba Reed MD Work Phone: [facility] Dept Start: 03-17-2021 End: 03-18-2021 Subsequent hospital visit by physician Zoie Gonzales MD Work Phone: [facility] Capacity Management Comment on above: 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 (Primary Dx); Coronary artery disease involving pauma coronary artery of pauma heart without angina pectoris Start: 03-10-2021 End: 03-10-2021 Subsequent hospital visit by physician [place] APRN - EXTRACTOR AND WRINGER OPERATOR Work Phone: [facility] [address] [facility] Comment on above: Stable angina pector is (HCC); Coronary artery disease involving pauma coronary artery of pauma heart without angina pectoris Start: 10-22-2020 End: 10-22-2020 Subsequent hospital visit by physician Tree Gonzales MD Work Phone: [facility] Comment on above: Pneumonia due to COV ID-19 virus; ILD (interstitial lung disease) (HCC); Pneumoconiosis (HCC) Pneumonia due to COV ID-19 virus; Interstitial lung disease (HCC); Pneumoconiosis (HCC) Start: 09-15-2019 End: 09-15-2019 Emergency department patient visit Justen Martin Work Phone: [facility] 2E TELEMETRY Comment on above: Chest pain, unspecif ied type (Primary Dx) Start: 09-05-2019 End: 09-09-2019 Emergency department patient visit Ari Rueda Work Phone: [facility] Capacity Management Comment on above: Chest pain, unspecif ied type (Primary Dx); Ventricular tachycardia (HCC); PAF (paroxysmal atrial fibrillation) (HCC) Procedures Date Procedure Procedure Detail Performing Clinician Start: 02-07-2025 Ecg routine ecg w/least 12 lds trcg only w/o i&r Dominguez Ortega MD Work Phone: Start: 02-07-2025 TTE w or wo Shobha hodgezabeth J [place] TILE AND MARBLE SETTER - [facility] Work Phone: Start: 01-29-2025 MRI of lower extremity Dr. Finn Ferrell MD Work Phone: Start: 01-29-2025 US scan of thyroid Dr. Finn Ferrell MD Work Phone: Start: 01-19-[address] Finn Ferrell MD Work Phone: Comment on above: Test Ordered: [id number] JAK2 Mutation Amanda sis, QualJAK2 V617F mutation detection Comment CAMPOS Reference Range: .Result: NEGATIVE for the JAK2 V617F mutation.Interpretation: The G to T nucleotide change encoding [id number] mutation was not detected. This result does not ruleout the presence of the JAK2 mutation at a level below thesensitivity of detection of this assay, or the presence ofother mutations within JAK2 not detected by this assay.This result does not rule out a diagnosis of polycythemiavera, essential thrombocythemia or idiopathicmyelofibrosis as the V617F mutation is not detected inall patients with these disorders.Background: Comment TG Reference Range: .JAK2 is a cytoplasmic tyrosine kinase with a rolon role insignal transduction from multiple hematopoietic growthfactor receptors. A point mutation within exon 14 of theJAK2 gene ([id number]) encoding a valine to phenylalaninesubstitution at position 617 of the JAK2 protein (V617F)has been identified in most patients with polycythemiavera, and in about half of those with either essentialthrombocythemia or idiopathic myelofibrosis. The V617F hasalso been detected, although infrequently, in other myeloiddisorders such as chronic myelomonocytic leukemia andchronic neutrophilic luekemia. V617F is an acquiredmutation that alters a highly conserved valine present inthe negative regulatory JH2 domain of the JAK2 proteinand is predicted to dysregulate kinase activity.Methodology:Total genomic DNA was extracted and subjected to TaqManreal-time PCR amplification/detection. Two amplificationproducts per sample were monitored by real-time PCR usingprimers/probes specific to JAK2 wild type (WT) and [id number] V617F. The [employer] Absolute Quantitation softwarewill compare the patient specimen valuse to the standardcurves and generate percent values for wild type andmutant type. In vitro studies have indicated that thisassay has an analytical sensitivity of 1%.References:Kyaw EJ, Vinayak LM, Moose PJ, et al. Acquiredmutation of the tyrosine kinase JAK2 in humanmyeloproliferative disorders. Lancet. 2005 Aug 09;365(9945):7469-1164. Ralph Harris, Andre Ross, Gretchen Land MENDOZA. 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 Nature. 2005 Sep 18;819(2034):0455-2079.Nehemias R, Noy F, Bhumika , et al. A sypw-nd-edufybrs mutation of JAK2 in myeloproliferative disorders.N Engl J Med. 2005 Sep 18; 35217):9776-2245.Director Review: Roman CAMPOS Reference Range: .Technical Component performed at [facility] RTPProfessional Component performed by:Chan Minor, PhD, FACMGDirector, Molecular OncologyLeonard Morse Hospital [id number], [address] [employer] [phone] test was developed and its performance characteristicsdetermined by [employer]. It has not been cleared orapproved by the Food and Drug Administration.Performed at: [facility] [id number] [place], [place] [id number] Director: Adelina Lockhart [facility], Phone: [phone] at: [facility] [id number] [place], [place] [id number] Director: Adelina Lockhart [facility], Phone: [phone] at: [place] [id number] Director: Terrance Ashford PhD, Phone: [phone] Start: 01-15-[address] Finn Ferrell MD Work Phone: Start: 01-15-2025 Total iron binding capacity measurement Dr. Finn Ferrell MD Work Phone: Start: 01-15-2025 Vitamin D, 25-hydroxy measurement Dr. Finn Ferrell MD Work Phone: Comment on above: Vitamin D StatusDeficiency: <20 ng/mL (5 0nmol/L)Insufficiency: 20-30 ng/mL (50-75 nmol/L)Sufficiency: 30-100 ng/mL (75-250 nmol/L)Toxicity: >100 ng/mL (>250 nmol/L) Start: 01-15-2025 Lipid 1996 panel - Serum or Plasma Bernice Zarate RN Start: 01-15-2025 Thyrotropin [Units/volume] in Serum or Plasma Bernice Zarate RN Start: 11-15-2024 X-ray of foot, three or more views Dr. Finn Ferrell MD Work Phone: Start: 11-15-[address] Finn Ferrell MD Work Phone: Start: 09-15-2024 Comprehensive metabolic panel Rebecca verdin TILE AND MARBLE SETTER - EXTRACTOR AND WRINGER OPERATOR Work Phone: Start: 09-15-2024 Lipid panel Rebecca De Dios TILE AND MARBLE SETTER - EXTRACTOR AND WRINGER OPERATOR Work Phone: Start: 09-15-2024 Lipid 1996 panel - Serum or Plasma Dominguez Ortega MD Work Phone: Start: 09-14-2024 Ecg routine ecg w/least 12 lds trcg only w/o i&r Marycruz Franks MD Work Phone: Start: 09-14-2024 Cardiac catheterization study [place] TILE AND MARBLE SETTER - EXTRACTOR AND WRINGER OPERATOR Work Phone: Start: 09-14-2024 Percutaneous coronary intervention [place] TILE AND MARBLE SETTER - EXTRACTOR AND WRINGER OPERATOR Work Phone: Start: 09-14-2024 End: 09-14-2024 POCT ACT Dominguez Ortega MD Work Phone: Start: 09-14-2024 Ecg routine ecg w/least 12 lds trcg only w/o i&r Miryam Casas TILE AND MARBLE SETTER - EXTRACTOR AND WRINGER OPERATOR Work Phone: Start: 09-11-2024 Thyrotropin [Units/volume] in Serum or Plasma Bernice Zarate RN Start: 08-31-[address] Finn Ferrell MD Work Phone: Start: 08-31-2024 Serum inorganic phosphate measurement Dr. Finn Ferrell MD Work Phone: Start: 08-31-2024 Total iron binding capacity measurement Dr. Finn Ferrell MD Work Phone: Start: 08-31-2024 Vitamin D, 25-hydroxy measurement Dr. Finn Ferrell MD Work Phone: Comment on above: Vitamin D StatusDeficiency: <20 ng/mL (5 0nmol/L)Insufficiency: 20-30 ng/mL (50-75 nmol/L)Sufficiency: 30-100 ng/mL (75-250 nmol/L)Toxicity: >100 ng/mL (>250 nmol/L) Start: 08-24-2024 Follow-up visit Follow-up [place] Start: 08-24-2024 TTE w or wo fol wcon,Doppler [place] TILE AND MARBLE SETTER - EXTRACTOR AND WRINGER OPERATOR Work Phone: Start: 07-06-2024 Ecg routine ecg [...] Start: 03-29-[address] Finn Mcclendon er Work Phone: Start: 03-01-2023 Cardiac catheterization study Zoie Gonzales MD Work Phone: Start: 02-23-2023 Ecg routine ecg w/least 12 lds w/i&r Zoie Gonzales MD Work Phone: Start: 02-19-2023 Lipid 1996 panel - Serum or Plasma [place] APRN - EXTRACTOR AND WRINGER OPERATOR Work Phone: Start: 02-02-2023 Ecg routine ecg w/least 12 lds trcg only w/o i&r Zoie Gonzales MD Work Phone: Start: 12-30-2022 Basic metabolic 2000 panel - Serum or Plasma [place] APRN - EXTRACTOR AND WRINGER OPERATOR Work Phone: Start: 12-28-2022 Plain x-ray of [...] 2d w/wom-mode compl spec&colr d Sadine D Bi TILE AND MARBLE SETTER - EXTRACTOR AND WRINGER OPERATOR Work Phone: Start: 10-29-2022 Thyrotropin [Units/volume] in [...] Start: 12-01-2021 CARDIAC CATH NURSING LOG Physician Gener ic Start: 12-01-2021 End: 12-01-2021 Ecg routine ecg w/least 12 lds w/i&r Milagro Jaimes TILE AND MARBLE SETTER - EXTRACTOR AND WRINGER OPERATOR Work Phone: Start: 12-01-2021 Basic metabolic panel calcium total Milagro Jaimes TILE AND MARBLE SETTER - EXTRACTOR AND WRINGER OPERATOR Work Phone: Start: 10-31-2021 Thyrotropin [Units/volume] in [...] 03-18-2021 Blood count complete automated Milagro matias TILE AND MARBLE SETTER - EXTRACTOR AND WRINGER OPERATOR Work Phone: Start: 03-17-2021 Ecg routine ecg w/least 12 lds w/i&r Zoie Gonzales MD Work Phone: Start: 03-17-2021 CARDIAC CATH NURSING LOG 3m Scanning Start: 03-17-2021 Cardiac catheterization Zoie Gonzales MD Work Phone: Start: 03-17-2021 End: 03-17-2021 Coagulation time activated Zoie tolliver MD Work Phone: Start: 03-10-2021 Basic metabolic panel calcium total [place] TILE AND MARBLE SETTER - EXTRACTOR AND WRINGER OPERATOR Work Phone: Start: 10-22-2020 Nebulizer therapy Tree Gonzales MD Work Phone: Start: 10-22-2020 Brncdilat rspse spmtry pre&post-brncdilat admn Tree Gonzales MD Work Phone: Start: 06-17-2020 H/O: artificial joint Presence of left artificial shoulder joint [place] [employer] AND [employer] SETTER - EXTRACTOR AND WRINGER OPERATOR Work Phone: Start: 06-17-2020 History of operative procedure on knee History of knee joint replacement [place] [employer] SETTER - EXTRACTOR AND WRINGER OPERATOR Work Phone: Start: 06-17-2020 History of placement of stent for coronary artery disease History of coronary artery stent placement [place] [employer] MARBLE SETTER - EXTRACTOR AND WRINGER OPERATOR Work Phone: Start: 02-20-2020 Colonoscopy Zoie Gonzales MD Work Phone: Start: 09-15-2019 Ecg routine ecg w/least 12 lds w/i&r Brian Yo Work Phone: Start: 09-15-2019 Assay of troponin quantitative Brian Ne pal Work Phone: Start: 09-15-2019 Radiologic exam chest single view Justen Adusumilli Work Phone: Start: 09-15-2019 Assay of lipase Justen Adusumilli Work Phone: Start: 09-15-2019 Assay of troponin quantitative Justen Ricki sumilli Work Phone: Start: 09-15-2019 Basic metabolic panel calcium total Justen Adusumilli Work Phone: Start: 09-15-2019 Blood count complete auto&auto difrntl wbc Justenyomi Gerberumilli Work Phone: Start: 09-15-2019 Ecg routine ecg w/least 12 lds w/i&r Justen Adusumilli Work Phone: Start: 09-09-2019 Blood count complete auto&auto difrntl wbc George Reed Work Phone: Start: 09-09-2019 Blood count complete automated George Reed Work Phone: Start: 09-08-2019 CARDIAC CATH NURSING LOG 3m Scanning Start: 09-08-2019 DIAGNOSTIC CARDIAC PRINTER SMALL PRINT SHOP PROCEDURE Miryam Casas Work Phone: Start: 09-08-2019 ECHOCARDIOGRAM EXERCISE STRESS TEST Zoie Gonzales Work Phone: Start: 09-08-2019 Basic metabolic panel calcium total Yemi South Work Phone: Start: 09-07-2019 ECHOCARDIOGRAM TRANSESOPHAGEAL Subhash Al radha Work Phone: Start: 09-07-2019 Ecg routine ecg w/least 12 lds w/i&r Miguel A Iler Work Phone: Start: 09-07-2019 CARDIOVERSION DEFIBRILLATION Miguel A Iler Work Phone: Start: 09-06-2019 Ecg routine ecg w/least 12 lds w/i&r Yemi Akosua Work Phone: Start: 09-06-2019 Assay of magnesium Yemi Akosua Work Phone: Start: 09-06-2019 Assay of thyroid stimulating hormone tsh Yemi Akosua Work Phone: Start: 09-06-2019 Assay of troponin quantitative Yemi Griffithy jacquelinsharee Work Phone: Start: 09-06-2019 Basic metabolic panel calcium total Yemi Akosua Work Phone: Start: 09-05-2019 Assay of troponin quantitative Yemi robins Work Phone: Start: 09-05-2019 Assay of troponin quantitative Yemi robins Work Phone: Start: 09-05-2019 Assay of magnesium Ari R Rueda Work Phone: Start: 09-05-2019 Assay of phosphorus inorganic Ari R Rueda Work Phone: Start: 09-05-2019 Assay of troponin quantitative Ari R Rueda Work Phone: Start: 09-05-2019 Basic metabolic panel calcium total Ari R Rueda Work Phone: Start: 09-05-2019 Blood count complete auto&auto difrntl wbc Ari R Rueda Work Phone: Start: 09-05-2019 Natriuretic peptide Ari R Rueda Work Phone: Start: 09-05-2019 Radiologic exam chest single view Ari R Rueda Work Phone: Start: 09-05-2019 End: 09-05-2019 Ecg routine ecg w/least 12 lds w/i&r Ari R Rueda Work Phone: H/O: artificial joint History [...] Ontiveros Work Phone: Comment on above: X3 2020 History of repair of inguinal hernia History of inguinal hernia repair Dr. Vinayak Ontiveros Work Phone: Plan of Treatment Date Care Activity Detail Author Start: 02-19-2030 Screening for malignant neoplasm of colon [facility] Start: 01-15-2030 Lipid panel [facility] Start: 09-15-2029 Lipid panel Lipid Panel [facility] Start: 02-20-2028 Lipid panel Lipid Panel [facility] Start: 12-08-2027 Lipid panel Lipid Panel [facility] Start: 08-05-2026 Lipid panel Lipid Panel [facility] Start: 02-27-2026 End: 02-27-2026 Patient encounter procedure 02/27/2026 3:15 PM EDT Office Visit [facility] [place] [address] [place] [address] Dominguez Ortega MD [address] [place] [address] [facility] [place] Start: 02-07-2026 Echocardiography Echocardiogram [facility] Start: 01-15-2026 Creatinine measurement Creatinine Level [facility] Start: 01-15-2026 Potassium measurement Potassium Level [facility] Start: 01-15-2026 Thyroid stimulating hormone measurement TSH Level [facility] Start: 09-15-2025 Creatinine measurement Creatinine Level [facility] Start: 09-15-2025 Potassium measurement Potassium Level [facility] Start: 09-11-2025 Thyroid stimulating hormone measurement TSH Level [facility] Start: 08-24-2025 Echocardiography Echocardiogram [facility] Start: 07-05-2025 End: 07-05-2025 Patient encounter procedure 07/05/2025 11:00 AM EST Office Visit [facility] [place] [address] [place] [phone] [place], TILE AND MARBLE SETTER - EXTRACTOR AND WRINGER OPERATOR [address] [place] [address] [facility] [place] Start: 06-20-2025 Creatinine measurement Creatinine Level [facility] Start: 06-20-2025 Potassium measurement Potassium Level [facility] Start: 06-20-2025 Thyroid stimulating hormone measurement TSH Level [facility] Start: 05-12-2025 Medicare Annual Wellness (AWV) Medicare Annual Wellness (AWV) [facility] Start: 04-02-2025 ambulatory Ambulatory Facility:[facility] Start: 02-07-2025 End: 02-07-2025 Patient encounter procedure [facility] [place] Start: 02-07-2025 End: 10-10-2026 US Heart Transthoracic Transthoracic echocardiogram (TTE) complete with contrast, bubble, strain, and 3D PRN CV Echocardiography Routine Cardiomyopathy, ischemic Expected: 02/07/2025 (Approximate), Expires: 10/10/2026 [facility] Work Phone: Comment on above: Expected: 02/07/2025 (Approximate), Expi res: 10/10/2026 Start: 01-22-2025 COVID-19 Vaccine () COVID-19 Vaccine () [facility] Start: 01-22-2025 Influenza vaccination [facility] Start: 01-10-2025 Creatinine measurement Creatinine Level [facility] Start: 01-10-2025 Potassium measurement Potassium Level [facility] Start: 12-28-2024 End: 12-28-2024 Patient encounter procedure 12/28/2024 11:00 AM EDT Office Visit [facility] [address] [place] [phone] [place] TILE AND MARBLE SETTER - EXTRACTOR AND WRINGER OPERATOR [address] [place] [address] [facility] Start: 11-30-2024 Thyroid stimulating hormone measurement TSH Level [facility] Start: 11-15-2024 [facility] Start: 10-24-2024 End: 10-24-2024 Patient encounter procedure 10/24/2024 1:00 PM EDT Office Visit [address] [place] [phone] [place] TILE AND MARBLE SETTER - EXTRACTOR AND WRINGER OPERATOR [address] [place] [address] [facility] Start: 09-28-2024 End: 09-28-2024 Patient encounter procedure 09/28/2024 11:30 AM EDT Office Visit [facility] [address] [place] [phone] [place] TILE AND MARBLE SETTER - EXTRACTOR AND WRINGER OPERATOR [address] [place] [address] [facility] [place] Start: 09-14-2024 End: 09-14-2024 Admission to same day surgery center 09/14/2024 11:00 AM EDT - 09/14/2024 12:00 PM EDT Surgery [facility] [address] [place] [phone] Dominguez Ortega MD [address] [address] Left heart cath / coronary angiography [facility] Comment on above: Left heart cath / coronary angiography Start: 09-14-2024 Subsequent hospital visit by physician [facility] Comment on above: Unstable angina (CMS/HCC) (HCC) Start: 09-07-2024 End: 09-07-2025 Basic metabolic 1998 panel - Serum or Plasma Basic metabolic panel Lab Routine Unstable angina (CMS/HCC) (HCC) Expected: 09/07/2024 (Approximate), Expires: 09/07/2025 [facility] Work Phone: Comment on above: Expected: 09/07/2024 (Approximate), Expi res: 09/07/2025 Start: 09-07-2024 End: 09-07-2025 CBC W Auto Differential panel - Blood CBC auto differential Lab Routine Unstable angina (CMS/HCC) (HCC) Expected: 09/07/2024 (Approximate), Expires: 09/07/2025 [facility] Comment on above: Expected: 09/07/2024 (Approximate), Expi res: 09/07/2025 Start: 08-24-2024 End: 08-24-2024 Patient encounter procedure [facility] [address] [facility] Start: 08-10-2024 End: 08-10-2024 Patient encounter procedure 08/10/2024 3:00 PM EDT Appointment [facility] [address] [facility]In[facility]iology [address] [place] [phone] [place], TILE AND MARBLE SETTER - EXTRACTOR AND WRINGER OPERATOR [address] [address] [facility] [address] [facility] Start: 07-20-2024 End: 07-20-2026 Cardiac holter monitor (3-7 days) Cardiac holter monitor (3-7 days) [facility] Routine Palpitations PAF (paroxysmal atrial fibrillation) (HCC) Expected: 07/20/2024, Expires: 07/20/2026 [employer] Work Phone: Comment on above: Expected: 07/20/2024, Expires: Start: 07-20-2024 End: 07-20-2024 Patient encounter procedure 07/20/2024 2:00 PM EST Office Visit [facility] [place] [address] [place] [address] [place], TILE AND MARBLE SETTER - EXTRACTOR AND WRINGER OPERATOR [address] [place] [address] [facility] [place] Start: 07-13-2024 End: 07-13-2024 Patient encounter procedure 07/13/2024 1:30 PM EST Office Visit [facility] [place] [address] [place] [address] [place], TILE AND MARBLE SETTER - EXTRACTOR AND WRINGER OPERATOR [address] [place] [address] [facility] [place] Start: 07-06-2024 End: 07-06-2026 US Heart Transthoracic Transthoracic echocardiogram (TTE) complete with contrast, bubble, strain, and 3D PRN CV Echocardiography Routine 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 PAF (paroxysmal atrial fibrillation) (HCC) Essential hypertension Abnormal EKG Expected: 07/06/2024 (Approximate), Expires: 07/06/2026 [facility] Work Phone: Comment on above: Expected: 07/06/2024 (Approximate), Expi res: 07/06/2026 Start: 04-09-2024 Creatinine measurement Creatinine Level [employer] [facility] Start: 04-09-2024 Potassium measurement Potassium Level [facility] Start: 03-09-2024 End: 03-09-2025 CBC panel - Blood by Automated count CBC Lab Routine Paroxysmal atrial fibrillation (HCC) 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) Expected: 03/09/2024 (Approximate), Expires: 03/09/2025 [facility] [employer] Work Phone: Comment on above: Expected: 03/09/2024 (Approximate), Expi res: 03/09/2025 Start: 02-20-2024 Creatinine measurement Creatinine Level [facility] Start: 02-20-2024 Potassium measurement Potassium Level [facility] Start: 02-01-2024 End: 02-01-2024 Patient encounter procedure 02/01/2024 2:15 PM EDT Office Visit [facility] [address] [place] [phone] Dominguez Ortega MD [address] [place] [address] [facility] Start: 01-30-2024 Creatinine measurement Creatinine Level [facility] Start: 01-30-2024 Potassium measurement Potassium Level [facility] Start: 01-23-2024 COVID-19 Vaccine ( season) COVID-19 Vaccine ( season) [facility] Start: 01-23-2024 COVID-19 Vaccine ( season) COVID-19 Vaccine ( season) [facility] Start: 01-23-2024 Influenza vaccination [facility] Start: 12-09-2023 Creatinine measurement Creatinine Level [facility] Start: 12-09-2023 Potassium measurement Potassium Level [facility] Start: 12-08-2023 Creatinine measurement Creatinine Level [facility] Start: 12-08-2023 Potassium measurement Potassium Level [facility] Start: 12-04-2023 Creatinine measurement Creatinine Level [facility] Start: 12-04-2023 Potassium measurement Potassium Level [facility] Start: 11-19-2023 Echocardiography Echocardiogram [facility] Start: 10-30-2023 Creatinine measurement Creatinine Level [facility] Start: 10-30-2023 Potassium measurement Potassium Level [facility] Start: 10-30-2023 Thyroid stimulating hormone measurement TSH Level [facility] Start: 07-29-2023 End: 07-29-2023 Patient encounter procedure 07/29/2023 11:00 AM EST Office Visit [facility] [address] [place] [phone] [place], TILE AND MARBLE SETTER - EXTRACTOR AND WRINGER OPERATOR [address] [facility] [address] [place] [address] [facility] Start: 07-09-2023 Patient discharge [facility] Start: 06-30-2023 End: 06-30-2023 Patient encounter procedure [facility] Start: 06-17-2023 End: 06-17-2023 Patient encounter procedure [facility] Start: 05-20-2023 Egd transoral biopsy single/multiple EGD BIOPSY SINGLE/MULTIPLE [facility] Start: 05-20-2023 Patient discharge [facility] Start: 05-10-2023 End: 05-10-2023 Patient encounter procedure 05/10/2023 1:30 PM EST Office Visit [facility] [address] [place] [phone] Tree Gonzales MD [address] [place], [place] [id number] [facility] Start: 05-10-2023 End: 05-10-2023 Patient encounter procedure 05/10/2023 10:30 AM EST Office Visit [facility] [address] [place] [phone] Tree Gonzales MD 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 Essential hypertension, benign Expected: 04/01/2023 (Approximate), Expires: 03/18/2024 [facility] Work Phone: Comment on above: Expected: 04/01/2023 (Approximate), Expi res: 03/18/2024 Start: 03-29-2023 End: 03-29-2023 Patient encounter procedure 03/29/2023 3:45 PM EST Office Visit [facility] [address] [place] [address] Zoie Gonzales MD [address] [place], [place] [id number] [facility] Start: 03-29-2023 End: 03-29-2023 Patient encounter procedure 03/29/2023 1:15 PM EST Office Visit [facility] [address] [place] [phone] Chris Boyce MD [address] [place], [place] [id number] [facility] Start: 03-18-2023 End: 03-18-2023 Patient encounter procedure 03/18/2023 11:00 AM EDT Office Visit [facility] [address] [place] [address] [place], TILE AND MARBLE SETTER - EXTRACTOR AND WRINGER OPERATOR [address] [place] [address] [facility] Start: 03-04-2023 End: 03-04-2023 Patient encounter procedure 03/04/2023 11:35 AM EDT Office Visit [facility] [address] [place] [phone] Chris Boyce MD [address] [place] [address] [facility] Start: 03-01-2023 End: 03-01-2023 Admission to same day surgery center 03/01/2023 8:00 AM EDT - 03/01/2023 9:00 AM EDT Surgery [facility] [address] [place] [phone] Zoie Gonzales MD [address] [place] [address] Coronary angiography [facility] Comment on above: Coronary angiography Start: 03-01-2023 Subsequent hospital visit by physician 03/01/2023 8:00 AM EDT Hospital Encounter [facility] [address] [place] [phone] Zoie Gonzales MD [address] [place] [address] 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) [facility] Comment on above: 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) Start: 02-24-2023 End: 02-24-2023 Patient encounter procedure 02/24/2023 8:15 AM EDT Office Visit [facility] [address] [place] [phone] Chris Boyce MD [address] [place], [place] [phone] [facility] Start: 02-24-2023 End: 02-24-2023 Telemedicine consultation with patient 02/24/2023 8:15 AM EDT Telemedicine [facility] [address] [place] [phone] Chris Boyce MD [address] [place], [place] [phone] Arrived [facility] Comment on above: Arrived Start: 02-22-2023 End: 02-22-2023 Patient encounter procedure 02/22/2023 1:30 PM EDT Office Visit [facility] [address] [place] [address] Zoie Gonzales MD [address] [place] [address] [facility] Start: 02-02-2023 End: 02-03-2024 Comprehensive metabolic 1998 panel - Serum or Plasma Comprehensive metabolic panel Lab Routine 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 Expected: 02/02/2023 (Approximate), Expires: 02/03/2024 [facility] Comment on above: Expected: 02/02/2023 (Approximate), Expi res: 02/03/2024 Start: 02-02-2023 End: 02-03-2024 Lipid 1996 panel - Serum or Plasma Lipid panel Lab Routine 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 Other hyperlipidemia Expected: 02/02/2023 (Approximate), Expires: 02/03/2024 [facility] Work Phone: Comment on above: Expected: 02/02/2023 (Approximate), Expi res: 02/03/2024 Start: 02-02-2023 End: 02-02-2023 Patient encounter procedure 02/02/2023 8:30 AM EDT Office Visit [facility] [address] [place] [address] [place], TILE AND MARBLE SETTER - EXTRACTOR AND WRINGER OPERATOR [address] [place] [address] [facility] Start: 01-26-2023 End: 01-27-2024 Basic metabolic 1997 panel - Serum or Plasma Basic metabolic panel Lab STAT WATTS (dyspnea on exertion) Expected: 01/26/2023 (Approximate), Expires: 01/27/2024 [facility] Comment on above: Expected: 01/26/2023 (Approximate), Expi res: 01/27/2024 Start: 01-26-2023 End: 01-27-2024 CBC W Auto Differential panel - Blood CBC auto differential Lab STAT WATTS (dyspnea on exertion) Expected: 01/26/2023 (Approximate), Expires: 01/27/2024 [facility] [employer] Work Phone: Comment on above: Expected: 01/26/2023 (Approximate), Expi res: 01/27/2024 Start: 01-22-2023 COVID-19 Vaccine ( season) COVID-19 Vaccine () [facility] Start: 01-22-2023 Influenza vaccination [facility] Start: 01-04-2023 End: 01-04-2023 Patient encounter procedure [facility] Start: 12-24-2022 End: 12-24-2022 Patient encounter procedure 12/24/2022 2:30 PM EDT Office Visit [facility] [address] [place] [address] [place], TILE AND MARBLE SETTER - EXTRACTOR AND WRINGER OPERATOR [address] [place] [address] [facility] Start: 12-15-2022 End: 12-09-2023 Basic metabolic 1998 panel - Serum or Plasma Basic metabolic panel Lab Routine Renal insufficiency Expected: 12/15/2022 (Approximate), Expires: 12/09/2023 [facility] [employer] Work Phone: Comment on above: Expected: 12/15/2022 (Approximate), Expi res: 12/09/2023 Start: 12-06-2022 Admission procedure [facility] Start: 12-05-2022 [facility] Start: 12-03-2022 End: 12-03-2022 Patient encounter procedure 12/03/2022 2:30 PM EDT Office Visit [facility] [address] [place] [phone] Zoie Gonzales MD [address] [place] [address] [facility] Start: 11-20-2022 End: 11-20-2022 Patient encounter procedure 11/20/2022 8:30 PM EDT Office Visit [facility] [address] [place] [address] Chris Boyce MD [address] [place] [address] [facility] Start: 11-18-2022 End: 11-18-2022 Patient encounter procedure 11/18/2022 11:00 AM EDT Appointment [facility] [address] [facility] [address] [place] [phone] [facility] [address] [facility] Start: 11-11-2022 End: 11-12-2023 Polysomnography [facility] Routine HIPOLITO (obstructive sleep apnea) Expected: 11/11/2022 (Approximate), Expires: 11/12/2023 [facility] Work Phone: Comment on above: Expected: 11/11/2022 (Approximate), Expi res: 11/12/2023 Start: 10-31-2022 Thyroid stimulating hormone measurement TSH Level [facility] Start: 10-29-2022 End: 10-29-2022 Patient encounter procedure 10/29/2022 Office Visit Pulmonology Tree Gonzales MD [address] [place] [address] [facility] Start: 10-12-2022 End: 10-12-2022 Patient encounter procedure 10/12/2022 Office Visit Cardiology Samra Gonzalez, TILE AND MARBLE SETTER - EXTRACTOR AND WRINGER OPERATOR [address] [place] [address] [facility] Start: 10-01-2022 End: 10-02-2023 Basic metabolic 1998 panel - Serum or Plasma Basic metabolic panel Lab Routine WATTS (dyspnea on exertion) Localized edema Expected: 10/01/2022 (Approximate), Expires: 10/02/2023 [employer] Work Phone: Comment on above: Expected: 10/01/2022 (Approximate), Expi res: 10/02/2023 Start: 09-28-2022 End: 09-29-2023 Basic metabolic 1998 panel - Serum or Plasma Basic metabolic panel Lab Routine Localized edema Expected: 09/28/2022 (Approximate), Expires: 09/29/2023 [facility]: Comment on above: Expected: 09/28/2022 (Approximate), Expi res: 09/29/2023 Start: 09-28-2022 End: 09-29-2023 CBC W Auto Differential panel - Blood CBC auto differential Lab Routine Localized edema Expected: 09/28/2022 (Approximate), Expires: 09/29/2023 [employer] Comment on above: Expected: 09/28/2022 (Approximate), Expi res: 09/29/2023 Start: 09-28-2022 End: 09-29-2023 Fibrin D-dimer FEU [Mass/volume] in Platelet poor plasma D-dimer, quantitative Lab Routine Localized edema WATTS (dyspnea on exertion) Expected: 09/28/2022 (Approximate), Expires: 09/29/2023 [employer] [facility] Comment on above: Expected: 09/28/2022 (Approximate), Expi res: 09/29/2023 Start: 09-28-2022 End: 09-29-2023 Hepatic function 2000 panel - Serum or Plasma Hepatic function panel Lab Routine PAF (paroxysmal atrial fibrillation) (CMS/HCC) (HCC) Localized edema Expected: 09/28/2022 (Approximate), Expires: 09/29/2023 [employer] [facility] Comment on above: Expected: 09/28/2022 (Approximate), Expi res: 09/29/2023 Start: 09-28-2022 End: 09-29-2023 Natriuretic peptide B [Mass/volume] in Blood NT PRO BNP Lab Routine Coronary artery disease involving pauma coronary artery of pauma heart without angina pectoris PAF (paroxysmal atrial fibrillation) (CMS/HCC) ([facility]LY [facility]) Primary hypertension Chronic obstructive pulmonary disease, unspecified COPD type ([facility]) Localized edema WATTS (dyspnea on exertion) Shortness of breath on exertion Expected: 09/28/2022 (Approximate), Expires: 09/29/2023 [facility] Comment on above: Expected: 09/28/2022 (Approximate), Expi res: 09/29/2023 Start: 09-28-2022 End: 09-28-2024 US Heart Transthoracic Transthoracic echocardiogram (TTE) complete with contrast, bubble, strain, and 3D PRN CV Echocardiography Routine Localized edema Expected: 09/28/2022 (Approximate), Expires: 09/28/2024 [facility] Comment on above: Expected: 09/28/2022 (Approximate), Expi res: 09/28/2024 Start: 08-22-2022 Blood chemistry [facility] Start: 08-21-2022 Patient discharge [facility] Start: 08-20-2022 Incentive spirometry [facility] Start: 08-20-2022 [facility] Start: 08-20-2022 Continuous pulse oximetry [facility] Start: 08-20-2022 Anes arthrs humeral h/n strnclav & shoulder nos ANESTH SURGERY OF SHOULDER [facility] Start: 08-20-2022 Arthroscopy shoulder distal claviculectomy YOLANDE ARTHRS SRG DSTL CLAVICLC [facility] Start: 08-20-2022 Arthroscopy shoulder rotator cuff repair YOLANDE ARTHRS SRG [id number] CUF RPR [facility] Start: 08-20-2022 Arthroscopy shoulder w/coracoacrm ligmnt release YOLANDE ARTHRS SRG DECOMPRESSION [facility] Start: 08-20-2022 Following clinical pathway protocol [facility] Start: 08-20-2022 Application of intermittent pneumatic compression device [facility] Start: 08-20-2022 Consultation [facility] Start: 08-20-2022 Admission procedure [facility] Start: 08-20-2022 Catheterization of vein [facility] Start: 08-20-2022 Deep breathing and coughing exercises [facility] Start: 08-20-2022 Following clinical pathway protocol [facility] Start: 08-20-2022 Introduction of urinary catheter [facility] Start: 08-20-2022 Patient education [facility] Start: 08-20-2022 Taking patient vital signs [facility] Start: 08-20-2022 Vital signs measurements [facility] Start: 08-20-2022 [facility] Start: 08-20-2022 Application of ice collar, cap or bag [facility] Start: 08-20-2022 Assessment of risk of venous thromboembolism [facility] Start: 08-20-2022 Provision of activity privileges [facility] Start: 08-20-2022 Verification routine [facility] Start: 08-20-2022 Medication education [facility] Start: 08-01-2022 Lipid panel [facility]ids [facility] Start: 03-18-2022 Creatinine measurement Creatinine monitoring [facility] Start: 03-18-2022 Potassium monitoring Potassium monitoring [facility] Start: 01-27-2022 End: 01-27-2022 Patient encounter procedure 01/27/2022 Office Visit Cardiology Zoie Gonzales MD [address] [place], [place] [id number] [facility] Start: 01-22-2022 Influenza vaccination [facility] Start: 01-12-2022 Colonoscopy w/biopsy single/multiple COLONOSCOPY AND BIOPSY [facility] Work Phone: Start: 01-12-2022 Colsc flx w/rmvl of tumor polyp lesion snare tq COLONOSCOPY W/LESION REMOVAL [facility] Work Phone: Start: 01-12-2022 Egd insert guide wire dilator passage esophagus EGD GUIDE WIRE INSERTION [facility] Work Phone: Start: 01-12-2022 Egd removal tumor polyp/other lesion snare tech EGD REMOVE LESION SNARE [facility] Work Phone: Start: 01-12-2022 Egd transoral biopsy single/multiple EGD BIOPSY SINGLE/MULTIPLE [facility] Work Phone: Start: 01-12-2022 Patient discharge [facility] Work Phone: Start: 01-01-2022 End: 01-01-2022 Patient encounter procedure 01/01/2022 Office Visit Pulmonology Tree Gonzales MD [address] [place] [address] [facility] Start: 12-30-2021 End: 12-30-2021 Patient encounter procedure 12/30/2021 Appointment Pulmonary Function Testing Tree Gonzales MD [address] [place] [address] [facility] Start: 10-02-2021 End: 10-02-2021 Patient encounter procedure 10/02/2021 Office Visit Pulmonology Tree Gonzales MD [address] [place] [address] [facility] Start: 09-09-2021 Oxygen therapy [facility] Work Phone: Start: 09-09-2021 [facility] Work Phone: Start: 08-07-2021 End: 08-07-2021 Patient encounter procedure 08/07/2021 Office Visit Cardiology [place], TILE AND MARBLE SETTER - EXTRACTOR AND WRINGER OPERATOR [address] [place] [address] [facility] Start: 07-25-2021 End: 07-25-2021 Patient encounter procedure 07/25/2021 Office Visit Weight Management Reba Reed MD [address] [place] [address] [facility] Start: 07-17-2021 Thyroid stimulating hormone measurement TSH testing [facility] Start: 06-27-2021 End: 06-27-2021 Patient encounter procedure 06/27/2021 Office Visit Weight Management Reba Reed MD [address] [place] [address] [facility] Start: 04-13-2021 DTaP/Tdap/Td vaccine (2 - Td or Tdap) DTaP/Tdap/Td vaccine (2 - Td or Tdap) [facility] Start: 04-13-2021 DTaP/Tdap/Td vaccine (2 - Td) DTaP/Tdap/Td vaccine (2 - Td) [place] Start: 04-13-2021 DTaP/Tdap/Td Vaccines (2 - Td or Tdap) DTaP/Tdap/Td Vaccines (2 - Td or Tdap) [facility] Start: 03-25-2021 End: 03-17-2022 Basic metabolic 2000 panel - Serum or Plasma Basic Metabolic Panel Lab Routine 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 Expected: 03/25/2021, Expires: 03/17/2022 [facility] Work Phone: Comment on above: Expected: 03/25/2021, Expires: Start: 03-24-2021 End: 03-24-2021 Patient encounter procedure 03/24/2021 Office Visit Cardiology [place], TILE AND MARBLE SETTER - EXTRACTOR AND WRINGER OPERATOR [address] [place] [address] [phone] [facility] Start: 03-20-2021 End: 03-20-2021 ambulatory 03/20/2021 Virtual Visit Pulmonology Quan Green, TILE AND MARBLE SETTER - EXTRACTOR AND WRINGER OPERATOR [address] [place] [address] [phone] [facility] Start: 03-17-2021 Annual Wellness Visit (AWV) Annual Wellness Visit (AWV) [facility] Start: 03-17-2021 End: 03-17-2021 Patient encounter procedure 03/17/2021 Appointment IP Unit Zoie Gonzales MD [address] [place] [address] [phone] [facility] Slice Plug Cutter Operator Helper Start: 01-22-2021 Influenza vaccination [facility] Start: 11-07-2020 End: 11-07-2020 Patient encounter procedure 11/07/2020 Office Visit Pulmonology Tree Gonzales MD [address] [facility] [address] [place] [address] [phone] [facility] Start: 10-27-2020 Pneumococcal 65+ years Vaccine (1 of 1 - PPSV23) Pneumococcal 65+ years Vaccine (1 of 1 - PPSV23) [facility] Start: 10-05-2020 Creatinine measurement Creatinine monitoring [facility] Work Phone: Start: 10-05-2020 Potassium monitoring Potassium monitoring [facility] Work Phone: Start: 09-08-2020 Creatinine measurement Creatinine monitoring [place], [place] Start: 09-08-2020 Creatinine monitoring Creatinine monitoring [place], [place] Start: 09-08-2020 Potassium monitoring Potassium monitoring [place] Start: 09-05-2020 TSH Qn TSH testing [place] Start: 09-05-2020 TSH testing TSH testing [place] Start: 06-06-2020 Lipid panel Lipid screen [facility] Start: 06-06-2020 Lipid screen Lipid [place] Start: 01-23-2020 Influenza vaccination Flu vaccine (Season Ended) [place] Start: 09-21-2019 End: 09-21-2019 Virtual Visit 09/21/2019 Virtual Visit Cardiology [place], TILE AND MARBLE SETTER - EXTRACTOR AND WRINGER OPERATOR [address] [facility] [address] [place] [address] [phone] [facility] Start: 09-14-2019 End: 09-14-2019 Virtual Visit [facility] Start: 2015 RSV Immunization aged 60 or older (1 - 1-dose 60+ series) RSV Immunization aged 60 or older (1 - 1-dose 60+ series) [facility] Start: 2015 RSV Immunization for Adults (1 - Risk 60-74 years 1-dose series) RSV Immunization for Adults (1 - Risk 60-74 years 1-dose series) [facility] Start: 10-27-2005 Colon cancer screen colonoscopy Colon cancer screen colonoscopy [place] Start: 10-27-2005 Screening for malignant neoplasm of colon Colon cancer screen colonoscopy [place] Start: 10-27-2005 Shingles Vaccine (1 of 2) Shingles Vaccine (1 of 2) [facility] Start: 10-27-2005 Zoster Vaccines (1 of 2) Zoster Vaccines (1 of 2) [facility] Start: 10-27-2000 Screening for malignant neoplasm of colon [facility] Start: 1995 Diabetes screen Diabetes screen [place] Start: 1995 Prostate specific antigen measurement Prostate Specific Antigen (PSA) Screening or Monitoring [facility] Start: 10-27-1990 Diabetes screen Diabetes screen [facility] Start: 10-27-1974 Pneumococcal Vaccine: 50+ Years (1 of 2 - PCV) Pneumococcal Vaccine: 50+ Years (1 of 2 - PCV) [facility] Start: 10-27-1973 Diabetes mellitus screening Diabetes Screening [facility] Start: 10-27-1973 Hepatitis C screening [facility] Start: 10-27-1970 HIV screen HIV screen [place] Start: 10-27-1970 HIV screening HIV screen [facility] Start: 1967 COVID-19 Vaccine (1) COVID-19 Vaccine (1) [facility] Start: 1967 Depression Screen Depression Screen [facility] Start: 1967 Depression Screening Depression Screening [facility] Start: 10-27-1961 Pneumococcal 0-64 years Vaccine (1 of 1 - PPSV23) Pneumococcal 0-64 years Vaccine (1 of 1 - PPSV23) [place] Start: 10-27-1961 Pneumococcal 0-64 years Vaccine (1 of 2 - PPSV23) Pneumococcal 0-64 years Vaccine (1 of 2 - PPSV23) [facility] Work Phone: Start: 10-27-1961 Pneumococcal 65+ years Vaccine (1 - PCV) Pneumococcal 65+ years Vaccine (1 - PCV) [facility] Start: 10-27-1961 Pneumococcal Vaccine: 65+ Years (1 - PCV) Pneumococcal Vaccine: 65+ Years (1 - PCV) [facility] Start: 10-27-1961 Pneumococcal Vaccine: 65+ Years (1 of 2 - PCV) Pneumococcal Vaccine: 65+ Years (1 of 2 - PCV) [facility] Start: 10-27-1960 COVID-19 Vaccine (1) COVID-19 Vaccine (1) [facility] Start: 04-28-1956 COVID-19 Vaccine (#1) COVID-19 Vaccine (#1) [facility] Start: 1955 Annual Wellness Visit (AWV) Annual Wellness Visit (AWV) [facility] Start: 1955 Echocardiography Echocardiogram [facility] Start: 1955 Hepatitis B Vaccines (1 of 3 - 3-dose series) Hepatitis B Vaccines (1 of 3 - 3-dose series) [facility] Start: 1955 Hepatitis C screen Hepatitis C screen [place] Start: 1955 Hepatitis C screening Hepatitis C screen [facility] Start: 1955 Medicare Annual Wellness (AWV) Medicare Annual Wellness (AWV) [facility] Start: 1955 Screening for malignant neoplasm of colon [facility] Anion gap measurement [facility] Bilirubin.direct [Mass/volume] in Serum or Plasma [facility] Work Phone: BIPAP BIPAP Respirator y Care Routine Every 4hr until discontinued starting 09/07/2019 [place] Comment on above: Every 4hr until discontinued starting BUN/Creatinine ratio [facility] Calcium [Mass/volume ] in Serum or Plasma [facility] Carbon dioxide, tota l [Moles/volume] in Serum or Plasma [facility] Cardiac catheterizat ion study Cardiac procedure CV Cardiac Cath Routine Unstable angina (CMS/HCC) (HCC) 09/14/2024 2:02 PM EDT [facility] Work Phone: End: 08-24-2024 Cardiac holter monitor (3-7 days) [facility] Work Phone: Comment on above: Once for 1 Occurrences starting 08/25/19 until 08/24/2024 End: 12-01-2021 Catheterization and angiography procedure details panel Diagnostic Cardiac Slice Plug Cutter Operator Helper Procedure Cardiac Cath Routine One Time for 1 Occurrences starting 12/01/2021 until 12/01/2021 [facility] Work Phone: Comment on above: One Time for 1 Occurrences starting 11/21 until 12/01/2021 End: 09-16-2019 CBC CBC Lab Routine Tomorrow AM for 1 Occurrences starting 09/16/2019 until 09/16/2019 [facility] [place], [place] Comment on above: Tomorrow AM for 1 Occurrences starting 0 09/16/2019 until 09/16/2019 CBC panel - Blood by Automated count CBC Lab Routine Daily until discontinued starting 03/18/2021, 1 completed [facility] Work Phone: Comment on above: Daily until discontinued starting 2020, 1 completed CBC W Auto Different ial panel - Blood [facility] Work Phone: Celiac disease screen [facility] Work Phone: Chloride [Moles/volu me] in Serum or Plasma [facility] Clostridioides diffi cile DNA [Presence] in Unspecified specimen by HARIKA with probe detection [facility] Work Phone: Comprehensive Metabo lic Panel w/ Reflex to MG Comprehensive Metabolic Panel w/ Reflex to MG Lab Routine Daily until discontinued starting 03/18/2021, 1 completed [facility] Work Phone: Comment on above: Daily until discontinued starting 2020, 1 completed Continuous pulse oximetry Pulse oximetry, continuous Respiratory Care Routine Every 4hr until discontinued starting 03/17/2021 [facility] Work Phone: Comment on above: Every 4hr until discontinued starting Creatinine [Moles/vo lume] in Serum or Plasma [facility] End: 10-22-2020 CT Chest WO Contrast CT Chest WO Contrast Imaging Routine Pneumonia due to COVID-19 virus ILD (interstitial lung disease) (HCC) Pneumoconiosis (HCC) 1 Occurrences starting 10/22/2020 until 10/22/2020 [facility] Work Phone: Comment on above: 1 Occurrences starting 10/22/2020 until 10/22/2020 CT Chest WO Contrast CT Chest WO Contrast Imaging Routine Pneumonia due to COVID-19 virus ILD (interstitial lung disease) (HCC) Pneumoconiosis (HCC) 10/22/2020 8:43 AM EDT [facility] Work Phone: ECG 12 lead - CLINIC PERFORMED ECG 12 lead - CLINIC PERFORMED CV ECG Routine Primary hypertension 02/02/2023 8:37 AM EDT [facility] Work Phone: ECG 12 lead - CLINIC PERFORMED ECG 12 lead - CLINIC PERFORMED CV ECG Routine 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 07/06/2022 2:29 PM EST [facility] Work Phone: ECG 12 lead - CLINIC PERFORMED ECG 12 lead - CLINIC PERFORMED CV ECG Routine 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 07/06/2024 2:08 PM EST [facility] Work Phone: ECG 12 lead - CLINIC PERFORMED ECG 12 lead - CLINIC PERFORMED CV ECG Routine 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 02/07/2025 3:18 PM EDT [facility] Work Phone: [facility]KG 12 [facility] Comment on above: As Needed until discontinued starting Daily until disconti nued starting 03/18/2021, 1 completed End: 09-16-2019 EKG 12 lead EKG 12 lead ECG Routine Tomorrow AM for 1 Occurrences starting 09/16/2019 until 09/16/2019 [facility] Comment on above: Tomorrow AM for 1 Occurrences starting 0 09/16/2019 until 09/16/2019 Ferritin [Mass/volum e] in Serum or Plasma [facility] Work Phone: Full PFT Study With Bronchodilator Full PFT Study With Bronchodilator PFT Routine Pneumonia due to COVID-19 virus Interstitial lung disease (HCC) Pneumoconiosis (HCC) 10/22/2020 8:53 AM EDT [facility] Work Phone: Gastrointestinal pathogens panel - Stool by HARIKA with probe detection [facility] Work Phone: Glucose [Mass/volume ] in Serum or Plasma [facility] Initiate Oxygen Ther apy Protocol [facility] Comment on above: Daily until discontinued starting 2019 Daily until disconti nued starting 09/08/2019 Daily until disconti nued starting 09/15/2019 Iron and Iron bindin g capacity panel - Serum or Plasma [facility] Work Phone: Measurement of renal function [facility] End: 09-07-2019 Nasal Cannula Oxygen Nasal Cannula Oxygen Respiratory Care Routine As Needed until discontinued starting 09/07/2019 [email or web address] Comment on above: As Needed until discontinued starting Ova and parasites identified in Unspecified specimen by Light microscopy [facility] Work Phone: Oxygen therapy [Mini mum Data Set] Initiate Oxygen Therapy Protocol Respiratory Care Routine Daily until discontinued starting 03/17/2021 [facility] Work Phone: Comment on above: Daily until discontinued starting 2020 Oxygen therapy [Mini mum Data Set] Initiate Oxygen Therapy Protocol Respiratory Care Routine As Needed until discontinued starting 12/01/2021 [employer] Work Phone: Comment on above: As Needed until discontinued starting Oxygen therapy [Mini mum Data Set] Initiate Oxygen Therapy Protocol Respiratory Care Routine Daily until discontinued starting 12/01/2021 [employer] Work Phone: Comment on above: Daily until discontinued starting 2021 Patient Education [facility] Work Phone: Patient referral [facility] Work Phone: Potassium [Moles/vol ume] in Serum or Plasma [facility] Procedure [facility] Pulse oximetry, continuous Pulse oximetry, continuous Respiratory Care Routine Every 4hr until discontinued starting 09/07/2019 [facility] Comment on above: Every 4hr until discontinued starting Radionuclide gastric emptying study [facility] Sodium [Moles/volume ] in Serum or Plasma [facility] End: 09-15-2019 Troponin I.cardiac [Mass/Vol] Troponin Lab Timed Now Then Every 3hr for 2 Occurrences starting 09/15/2019 until 09/15/2019, 1 completed [facility] [employer] Comment on above: Now Then Every 3hr for 2 Occurrences sta rting 09/15/2019 until 09/15/2019, 1 completed Urea nitrogen [Mass/volume] in Serum or Plasma [facility] US Thyroid gland [facility] Payers Date Payer Category Payer Self-pay [id number] 2021 Medicare supplementa l policy (as second payer) MMO MEDICARE SUPPLEMENT [id number] 2021 Unknown [employer] M [place] MEDICARE SUPPLEMENT [id number] 2021-Present [address] [place] [address] Supplement [id number] 2020 Medicare [id number] 2020 Medicare [id number] 2019 Unknown BCBS BCBS - [place] P PO xxxxxxxxxxxx 2019-Present [address] [place] [address] xxxxxxxxxxxx [id number] 2019 Unknown [id number] 2015 Unknown [id number]. [id number] 2014 Unknown [facility] [id number] Unknown [id number] [id number]. 2.462 Unknown [id number] 2.16.840.1.491396.3.579. 2.462 Unknown [id number] 2.16.840.1.265358.3.579. 2.462 Unknown [id number] 2.16.840.1.033305.3.579. 2.462 Unknown [id number] 2.16.840.1.419344.3.579. 2.462 Unknown [id number] 2.16.840.1.842961.3.579. 2.462 Unknown [id number] 2.16.840.1.113256.3.579. 2.462 Unknown [id number] 2.16.840.1.113354.3.579. 2.462 Unknown [id number] 2.16.840.1.607139.3.579. 2.462 Unknown [id number] 2.840.1.143496.3.579. 2.462 Unknown [id number] 2.16840.1.415030.3.579. 2.462 Unknown [id number] 2.16840.1.697746.3.579. 2.462 Unknown [id number] 2.16.840.1.508832.3.579. 2.462 Unknown [id number] 2.16840.1.335027.3.579. 2.462 Unknown [id number] 2.16840.1.797630.3.579. 2.462 Unknown [id number] 2.16840.1.690595.3.579. 2.462 Unknown [id number] 2.16840.1.771178.3.579. 2.462 Unknown [id number]. 2.462 Social History Date Type Detail Facility Start: 09-05-2019 End: 11-14-2024 Tobacco smoking status VTIS Never smoker [place] Start: 09-05-2019 End: 05-05-2021 Alcohol intake Current drinker of alcohol (finding) [place] Start: 02-27-2016 Alcohol Comment rare [place] Start: 1955 Sex Assigned At Not on file [place] Exposure to SARS-CoV -2 (event) Unable to assess [place] Start: 05-26-2016 End: 09-19-2020 Tobacco use and exposure Never used [facility] Start: 11-21-2021 End: 02-02-2023 Exposure to SARS-CoV-2 (event) Not sure [facility] Start: 09-09-2021 End: 07-05-2023 Tobacco smoking status NHIS Unknown if ever smoked [facility] Start: 09-23-2020 None [facility] Start: 04-01-2020 Non-smoker [facility] Start: 1955 Sex Assigned At Male [facility] Start: 10-30-2021 End: 12-28-2024 Alcohol intake [facility]dr[facility] (finding) [facility] Start: 11-11-2022 End: 02-07-2025 History of Social function [facility] Start: 11-11-2022 End: 02-07-2025 Tobacco use panel [facility] Within the last year , have you been afraid of your partner or ex-partner? No [facility] Start: 12-22-2021 End: 09-05-2024 Sex Male (finding) [facility] Medical Equipment Procedure Code Equipment Code Equipment Origin al Text Equipment Identifier Dates Total cholecystectomy with exploration of common bile duct CLIP,HEMOLOCK MED WEAYE FDA Start: 10-30-2019 Total cholecystectomy with exploration of common bile duct CLIP,HEMOLOCK MED ЕЛЕНА FDA Start: 10-30-2019 Total cholecystectomy with exploration of common bile duct CLIP,HEMOLOCK MED ЕЛЕНА FDA Start: 10-30-2019 Total cholecystectomy with exploration of common bile duct CLIP,HEMOLOCK MED WEAYE FDA Start: 10-30-2019 Total cholecystectomy with exploration of common bile duct DRESSING,FIBRILLAR 1X2 1 FDA Start: 10-30-2019 Total cholecystectomy with exploration of common bile duct CLIP,HEMOLOCK MED WEAYE FDA Start: 10-30-2019 Total cholecystectomy with [...] exploration of common bile duct DRESSING,FIBRILLAR 1X2 1961 FDA Start: 10-30-2019 Total cholecystectomy with exploration [...] exploration of common bile duct DRESSING,FIBRILLAR 1X2 1961 FDA Start: 10-30-2019 Total cholecystectomy with exploration of common bile duct CLIP,HEMLINDA CHRISTIANSEN FDA Start: 10-30-2019 Total cholecystectomy with exploration of common bile duct CLIP,HEMLINDA CHRISTIANSEN FDA Start: 10-30-2019 Total cholecystectomy with exploration of common bile duct CLIP,HEMLINDA FERNANDEZ WEAYE FDA Start: 10-30-2019 Total cholecystectomy with exploration of common bile duct CLIP,HEMLINDA FERNANDEZ WECK FDA Start: 10-30-2019 Total cholecystectomy [...] cholecystectomy with exploration of common bile duct CLIP,JAMELINDA CHRISTIANSEN FDA Start: 10-30-2019 Total cholecystectomy with [...] with exploration of common bile duct CLIP,HEMOLOAYE MED WECK FDA Start: 10-30-2019 Total cholecystectomy with exploration of common bile duct DRESSING,FIBRILLAR 1X2 1960 FDA Start: 10-30-2019 Total cholecystectomy with exploration of common bile duct CLIP,HEMOLOAYE FERNANDEZ WECK FDA Start: 10-30-2019 Total cholecystectomy with exploration of common bile duct CLIP,HEMLINDA FERNANDEZ WEAEY FDA Start: 10-30-2019 Total cholecystectomy with exploration of common bile duct CLIP,HEMOLOAYE FERNANDEZ WEAYE FDA Start: 10-30-2019 Total cholecystectomy with exploration of common bile duct CLIP,HEMOLOAYE MED WEAYE FDA Start: 10-30-2019 Total cholecystectomy with [...] exploration of common bile duct CLIP,HEMOLOCK MED WEAYE FDA Start: 10-30-2019 Total cholecystectomy with [...] exploration of common bile duct CLIP,HEMOLOAYE FERNANDEZ WEYAE FDA Start: 10-30-2019 Total cholecystectomy with exploration [...] exploration of common bile duct DRESSING,FIBRILLAR 1X2 1961 FDA Start: 10-30-2019 Total cholecystectomy with exploration [...] exploration of common bile duct DRESSING,FIBRILLAR 1X2 1961 FDA Start: 10-30-2019 Total cholecystectomy with exploration [...] with exploration of common bile duct CLIP,HEMOLOAYE HCRISTIANSEN FDA Start: 10-30-2019 Total cholecystectomy with exploration [...] duct DRESSING,FIBRILLAR 1X2 1 FDA Start: 10-30-2019 Arthroscopy, shoulder, with rotator cuff repair FIBERTAPE FDA Start: 08-20-2022 Arthroscopy, shoulder, with rotator cuff repair FIBERTAPE [id number] FDA Start: 08-20-2022 Arthroscopy, shoulder, with rotator cuff repair ([id number]) Tendon/ligament bone anchor, bioabsorbable [id number] FDA Start: 08-20-2022 Arthroscopy, shoulder, with rotator [...] Start: 08-20-2022 Stent Phu Synerg y Xd [id number] - [id number] Start: 09-14-2024 Goals Date Patient Goal Desired Activity /State Functional Status Date Assessment Result Facility 08-21-2022 Functional status [facility] Work Phone: Mental Status Date Assessment Result Facility 07-09-2023 Cognitive function Level Of Cons ciousness Awake;Alert;Appropriate [facility] Work Phone: 05-20-2023 Cognitive function Voice/Name [facility] Work Phone: 12-05-2022 Cognitive function Voice/Name [facility] Work Phone: 08-21-2022 Cognitive function Voice/Name [facility] Work Phone: 01-12-2022 Cognitive function Level Of Cons ciousness Awake;Appropriate [facility] Work Phone: 01-12-2022 Cognitive function Voice/Name [facility] Work Phone: 09-09-2021 Cognitive function Voice/Name [facility] Work Phone: Clinical Notes 09-26-2020 to 02-22-2025 Telephone Encounter - Deisi Quick - 02/22/2025 3:35 PM EDTTelephone Encounter - Deisi Quick - 02/22/2025 3:35 PM EDTTelephone Encounter - Fide Rogers RN - 02/21/2025 5:10 PM EDTAttachments Note Date & Type Note Facility 02-22-2025 Telephone encounter Note Form faxed to [phone] and scanned under Media and confirmed. [facility] 02-22-2025 Miscellaneous Notes Form faxed to [phone] and scanned under Media Clearance form completed by Dr. Ortega, given to [place] Quick to fax Patient called requesting me to let Danisha know his surgery is scheduled 04/02/25. He does not need a call back. Received fax from [facility], patient scheduled for a robotic assisted left total knee arthoplasty on 04/02/[address] Figueroa. Patient has an upcoming appt with Dr. Ortega on 02/07/25, will address clearance at that time. documented in this encounter [facility] 02-22-2025 Miscellaneous Notes Form faxed to [phone] and scanned under Media and confirmed. Clearance form completed by Dr. Ortega, given to Berlin Quick to fax Patient called requesting me to let Danisha know his surgery is scheduled 04/02/25. He does not need a call back. Received fax from [facility], patient scheduled for a robotic assisted left total knee arthoplasty on 04/02/[address] Figueroa. Patient has an upcoming appt with Dr. Ortega on 02/07/25, will address clearance at that time. documented in this encounter [facility] 02-21-2025 Telephone encounter Note Clearance form completed by Dr. Ortega, given to Berlin Quick to fax [facility] 02-07-2025 Telephone encounter Note Echocardiogram reviewed. EF now ~ 57%, recovered, grade 1 diastolic dysfunction, RV WNL. No valvular abnormalities. Discussed results with him at OV with BP this afternoon. [facility] 02-07-2025 History of Present illness Narrative Images from the original note were not included. [facility] [address] [facility] [address] Dept: [phone] Dept Visit type: Established : 1955 Reason for Visit: Annual Assessment and Plan 1. 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 Essential hypertension, benign 3. Mixed hyperlipidemia This is a very pleasant 69y/o male with complex CAD, most recent stent in 02/2021. We will continue medical management and observation for now, and have discussed the prospect that he has had 20+ caths and 20+ stents, and we need to be a bit selective about when to cath and stent next. He has lost some weight and actually feels improved symptoms lyon. He is in great spirits today. Otherwise he should remain as active as possible and I will see him back in one year, sooner if needed. It was a pleasure seeing your patient in the office today. Please do not hesitate to call me with any questions. Follow up in about 1 year (around 02/07/2026). 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 He has a history of CAD s/p numerous stent procedures, all three vessels. Most recent PCI was 02/2021 (RCA), most recent cath was 02/2025 now showed occluded RCA, was not restented. Shannon Olson is here for routine follow up. he Is doing well, having no cardiac symptoms. Review of Systems Constitutional: Negative for activity [...] bruise/bleed easily. Psychiatric/Behavioral: Negative for dysphoric mood. Allergies[1] Current Medications[2] Medical History[3] Social History Tobacco Use Smoking status: Never Smokeless tobacco: Never Substance Use Topics Alcohol use: Not Currently Surgical History[4] Family History[5] Objective Vitals: 02/07/25 1518 BP: 136/88 BP Location: Left arm Patient Position: Sitting BP Cuff Size: Large adult Pulse: 63 Weight: 294 lb (133 kg) Height: 6' 2.5" (1.892 m) Physical Exam Constitutional: General: He [...] Behavior: Behavior normal. Data Reviewed and Summarized EF BP Date Value Ref Range Status 02/07/2025 57 55 - 100 % Final Review of tests/labs done/ordered within my specialty: EKG in office: Review of tests/labs done/ordered outside my specialty: Independent interpretation of tests: Dominguez Ortega MD [1] Allergies Allergen Reactions Penicillins Rash [2] Current Outpatient Medications: amiodarone (Pacerone) 200 MG tablet, Take 1 tablet (200 mg) by mouth daily., Disp: 90 tablet, Rfl: 0 amLODIPine (Norvasc) 5 MG tablet, Take 1 tablet (5 mg) by mouth daily., Disp: , Rfl: amLODIPine (Norvasc) 5 MG tablet, Take 1 tablet (5 mg) by mouth once daily, Disp: 180 tablet, Rfl: 3 apixaban (Eliquis) 5 MG tablet, Take 1 tablet (5 mg) by mouth 2 times daily., Disp: 180 tablet, Rfl: 3 cholecalciferol (Vitamin D-3) 20 MCG (800 UNIT) tablet, Take 800 Units by mouth daily., Disp: , Rfl: clopidogrel (Plavix) 75 MG tablet, Take 1 tablet (75 mg) by mouth daily., Disp: 90 tablet, Rfl: 3 ezetimibe (Zetia) 10 MG tablet, Take 1 tablet (10 mg) by mouth daily., Disp: 90 tablet, Rfl: 3 HYDROcodone-acetaminophen ([place]) 5-325 MG tablet, Take 1 tablet by mouth every 6 hours as needed., Disp: , Rfl: isosorbide mononitrate ER (Imdur) 60 MG 24 hr tablet, Take 1 tablet (60 mg) by mouth daily. Do not crush or chew., Disp: , Rfl: metoprolol succinate XL (Toprol-XL) 50 MG 24 hr tablet, Take 1 tablet (50 mg) by mouth daily. Do not crush or chew., Disp: 30 tablet, Rfl: 11 nitroglycerin (Nitrostat) 0.4 MG SL tablet, Place 1 tablet (0.4 mg) under the tongue every 5 minutes as needed for chest pain. May repeat dose every 5 minutes for up to 3 doses total., Disp: 100 tablet, Rfl: 11 ondansetron ODT (Zofran-ODT) 4 MG disintegrating tablet, Take 4 mg by mouth every 8 hours as needed., Disp: , Rfl: ranolazine (Ranexa) 500 MG 12 hr tablet, Take 1 tablet (500 mg) by mouth 2 times daily. Do not crush, chew, or split., Disp: 180 tablet, Rfl: 3 rosuvastatin (Crestor) 40 MG tablet, Take 1 tablet (40 mg) by mouth daily., Disp: 90 tablet, Rfl: 3 spironolactone (Aldactone) 25 MG tablet, Take 1 tablet (25 mg) by mouth daily., Disp: , Rfl: torsemide (Demadex) 20 MG tablet, Take 1 tablet (20 mg) by mouth daily. Take extra in evening if needd., Disp: , Rfl: [3] Past Medical History: Diagnosis Date Angina pectoris ([facility]) Anxiety Arrhythmia A-fib Asthma CAD (coronary artery disease) Cerebral artery occlusion with cerebral infarction ([facility]) COPD (chronic obstructive pulmonary disease) ([facility]) Depression WATTS (dyspnea on exertion) Fatigue GERD (gastroesophageal reflux disease) History of cardioversion 05/07/2016 Successful conversion of a-fib to SR History of left heart catheterization 05/07/2016 60% stenosis right posterior descending, patent stents in prox, mid & distal RCA, patent stents in med LCx. Findings unchanged from previous study. 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 FPC current use of anticoagulant NSTEMI (non-ST elevated myocardial infarction) ([facility]) 12/2012 NSTEMI (non-ST elevated myocardial infarction) ([facility]) 05/2014 Obesity Old SC (myocardial infarction) HIPOLITO (obstructive sleep apnea) HIPOLITO on CPAP PAF (paroxysmal atrial fibrillation) ([facility]) Rheumatoid arthritis(714.0) ([facility]) ST segment elevation myocardial infarction (STEMI) of anterolateral wall, subsequent episode of care ([facility]) TIA (transient ischemic attack) [4] Past Surgical History: Procedure Laterality Date CAPSULOTOMY, HAND 05/07/2016 CARDIAC CATHETERIZATION N/A 03/01/2023 Performed by Zoie Gonzales MD at [facility] Cardiac Cath/EP Lab CARDIAC CATHETERIZATION Left 09/14/2024 Performed by Dominguez Ortega MD at [facility] Cardiac Cath/EP Lab CARDIAC CATHETERIZATION N/A 09/14/2024 Performed by Dominguez Ortega MD at [facility] Cardiac Cath/EP Lab CARDIAC CATHETERIZATION N/A 09/14/2024 Performed by Dominguez Ortega MD at [facility] Cardiac Cath/EP Lab CARDIAC CATHETERIZATION N/A 09/14/2024 Performed by Dominguez Ortega MD at [facility] Cardiac Cath/EP Lab CARDIAC PROCEDURE Left [...] CORONARY ANGIOPLASTY WITH STENT PLACEMENT Left 12/01/2021 [employer]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 EF now ~ 57%, recovered, grade 1 diastolic dysfunction, RV WNL. No valvular abnormalities. Discussed results with him at with BP this afternoon. documented in this encounter [facility] 01-30-2025 Radiology Diagnostic study note [facility] Imaging Services [address], [place] [id number] Thyroid MR#: [id number] Acct: [id number] Name: SHANNON OLSON W Rep #: [id number] : 1955 M 69 From: Delta Zuleta MD PCP: Dr. Finn Ferrell MD Status: RE G CLI Study:Thyroid Date of Exam: 01/29/25 Exam# [id number] Ordering Dr: Finn Ferrell MD PROCEDURE: THYROID 01/29/2025 REASON FOR EXAM: NODULE Follow-up examination. TECHNIQUE: Procedure Code: USTHY Modality: US Procedure: THYROID COMPARISON: Prior study dated October 05, 2023. FINDINGS: Right thyroid lobe size: 3.9 cm x 1.9 cm 1.8 cm Left thyroid lobe size: 4.1 cm x 1.7 cm x 2 cm Isthmus: 0.6 cm Background parenchymal echotexture is heterogeneous. Nodules: . Lobe: Left, Location: Midpole, Size: 1.4 cm 1.2 cm 1.3 cm, Stability: Stable Composition: Solid or almost completely solid (+2) Echogenicity: Hypoechoic (+2) Margin: Smooth (+0) Shape: Wider than tall (+0) Echogenic Foci: None (+0) TI-RADS: 4 US/Thyroid IMPRESSION: Stable examination. 1.4 cm 1.2 cm 1.3 cm nodule in the midpole of the left lobeof the thyroid. RECOMMENDATION: Based on most suspicious nodule. Nodule size = largest diameter Only evaluate nodule if =>5 mm. Growth > 20% in 2 dimensions = worsening. Follow up to 4 nodules. Recommend biopsy for no more than 2 nodules. Reading Location: [id number] CC: Dr. Finn Ferrell MD ~ Camp Advisor: Signed [facility] 01-30-2025 Radiology Diagnostic study note [facility] Imaging Services [address] [place] [address] Extremity Lower without Contra MR#: [id number] Acct: [id number] Name: SHANNON OLSON Rep #: [id number] : 1955 M 69 From: Jose Burdick MD PCP: Dr. Finn Ferrell MD Status: RE G CLI Study:Extremity Lower without Contra Date of Exam: 01/29/25 Exam# [id number] Ordering Dr: Vannessa Figueroa MD PROCEDURE: EXTREMITY LOWER WITHOUT CONTRA 01/29/2025 REASON FOR EXAM: UNILATERAL PRIMARY OSTEOARTHRITIS,LT KNEE,THYROID TECHNIQUE: Procedure Code: CTELWO Modality: CT Procedure: KYMBERLY noncontrasted CT of the leftknee, to include the hip and ankle. Coronal and Sagittal reconstruction series were provided. One or more dose reduction techniques were used (e.g., Automated exposure control, adjustment of the mA and/or kV according to patient size, use of iterative reconstruction technique). RADIATION DOSE SUMMARY: DLP: 3639.44 mGycm COMPARISON: Abdomen and pelvis CT of 07/05/2023 FINDINGS: Bones and joints: Of the visualized portion of the lower lumbar spine, again seen are prominent degenerative changes. Left sacroiliac joint again shows moderately severe degenerative change. No significant Johnston's or popliteal cyst is seen about the left knee. Advanced tricompartmental left knee degenerative changes are seen, with severe medial and patellofemoral narrowing noted. No significant left knee joint effusion is seen. A left total hip prosthesis is in place, without findings to suggest loosening or metallic fracture noted. Associated metallic artifact is seen. Mild degenerative changes are seen about the left ankle, hindfoot, and midfoot. Soft Tissues: Moderate arterial calcification is noted. CT/Extremity Lower without Contra IMPRESSION: Postsurgical and degenerative changes as described. Reading Location: [place] [address] CC: Dr. Finn Ferrell MD; Dr. Terry Figueroa MD ~ Camp Advisor: Signed [facility] 01-19-2025 Telephone encounter Note Patient called requesting me to let Danisha know his surgery is scheduled 04/02/25. He does not need a call back. T [facility] 01-18-2025 Telephone encounter Note Received fax from [facility], patient scheduled for a robotic assisted left total knee arthoplasty on 04/02/[address] Figueroa. Patient has an upcoming appt with Dr. Ortega on 02/07/25, will address clearance at that time. [facility] 12-13-2024 Note 12/13/24 1459 BPCI Late Drop? Program late drop? No BPCI Outreach Assessment Selection Which outreach assessment are you completing? 90 Day BPCI - 90 Day Outreach Did patient answer phone call? No [facility] 12-13-2024 Note BPCI 90 day call/jero sure BPCI hospitalization: Procedures: LHC on 09/14/24 for increased daily angina despite increased anti-anginal medications. Echo was with preserved EF 55%, now decreased with EF of 38% on 08/24/24. EMR reviewed. PMH: HIPOLITO, COPD, HTN, Afib, CKD 3 Called patients mobile number- unable to leave message. Ending program. [facility] 11-30-2024 Miscellaneous Notes ISACC E. [place] 09/28/24, CMP completed 09/15/24. 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 Requesting refill torsemide (Demadex) 20 MG tablet [facility] verified documented in this encounter [facility] 11-30-2024 Telephone encounter Note ISACC E. [place] 09/28/24, CMP completed 09/15/24. 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 [facility] 11-30-2024 Telephone encounter Note Requesting refill torsemide (Demadex) 20 MG tablet [facility] verified [facility] 11-17-2024 Note 11/17/24 1056 BPCI Late Drop? Program late drop? No BPCI Outreach Assessment Selection Which outreach assessment are you completing? 60 Day BPCI - 60 Day Outreach Did patient answer phone call? No [facility] 11-17-2024 History of Present illness Narrative 11/17/24 1056 BPCI Late Drop? Program late drop? No BPCI Outreach Assessment Selection Which outreach assessment are you completing? 60 Day BPCI - 60 Day Outreach Did patient answer phone call? No BPCI 60 day outreach BPCI hospitalization: Procedures: LHC on 09/14/24 for increased daily angina despite increased anti-anginal medications. Echo was with preserved EF 55%, now decreased with EF of 38% on 08/24/24. EMR reviewed. PMH: HIPOLITO, COPD, HTN, Afib, CKD 3 Called [phone] mobile number for patient unable to leave message. Scheduled BPCI 90 day call- medications, follow up appointments. BPCI closure 12/17/24. documented in this encounter [facility] 11-17-2024 Note BPCI 60 day outreach BPCI hospitalization: Procedures: LHC on 09/14/24 for increased daily angina despite increased anti-anginal medications. Echo was with preserved EF 55%, now decreased with EF of 38% on 08/24/24. EMR reviewed. PMH: HIPOLITO, COPD, HTN, Afib, CKD 3 Called [phone] mobile number for patient unable to leave message. Scheduled BPCI 90 day call- medications, follow up appointments. BPCI closure 12/17/24. [facility] 11-15-2024 Radiology Diagnostic study note [facility] Imaging Services [address] [place] [address] Foot min 3 Views MR#: [id number] Acct: [id number] Name: SHANNON OLSON Rep #: [id number] : 1955 M 69 From: Roberto John MD PCP: Dr. Finn Ferrell MD Status: RE G ER Study:Foot min 3 Views Date of Exam: Exam# [id number] Ordering Dr: Cooper Francis DO PROCEDURE: FOOT MIN 3 VIEWS 11/15/2024 REASON FOR EXAM: INJURY/PAIN TECHNIQUE: FOOT MIN 3 VIEWS COMPARISON: None FINDINGS: Normal talus, calcaneus, and tarsal bones. Normal visualized subtalar, talonavicular, calcaneocuboid, tarsal and tarsometatarsal articulations. Normal metatarsi. Normal metatarsophalangeal joint of the great toe. Normal tibial and fibular sesamoid bones. Normal interphalangeal joint of the great toe. Normal phalanges of the great toe. Normal second through fifth metatarsophalangeal joints. Normal interphalangeal joints of the lesser toes. Normal phalanges of the lesser toes. RAD/Foot min 3 Views IMPRESSION: Normal x-ray examination of the foot. Reading Location: [place] [address] CC: Dr. Cooper Francis DO; Dr. Finn Ferrell MD ~ Camp Advisor: Signed [facility] 10-19-2024 Telephone encounter Note Great news, Tried to return phone call but no voice mail. Continue with same plan. [facility] 10-19-2024 Miscellaneous Notes Great news, Tried to return phone call but no voice mail. Continue with same plan. Pt called wanted Danisha to know he feels Awesome! Med changes are great, no chest pain, doing yard work, walking more. documented in this encounter [facility] 10-19-2024 Telephone encounter Note Pt called wanted Danisha to know he feels Awesome! Med changes are great, no chest pain, doing yard work, walking more. [facility] 10-18-2024 Note 10/18/24 0918 BPCI Late Drop? Program late drop? No BPCI Outreach Assessment Selection Which outreach assessment are you completing? 30 Day BPCI - 30 Day Outreach Did patient answer phone call? No [facility] 10-18-2024 History of Present illness Narrative 10/18/24 0918 BPCI Late Drop? [...] on the patient. documented in this encounter [facility] 10-18-2024 Note BPCI 30 day outreach BPCI [...] PRN call to check on the patient. [facility] 10-09-2024 History of Present illness Narrative 10/09/24 1443 BPCI Late Drop? [...] about 30 day window to re-admit to SNF/C if needed. N/A BPCI 21 day outreach BPCI hospitalization: Procedures: LHC on 09/14/24 for increased daily angina despite increased anti-anginal medications. Echo was with preserved EF 55%, now decreased with EF of 38% on 08/24/24. EMR reviewed. The patient had office visit with Cardiology 09/28/24. Called mobile number [phone] and spoke to the patient. The patient [...] report today. Scheduled BPCI 30 day outreach. Patient is scheduled with Dr. Escobedo on 02/07/2025, He lives in [place], please try and get his repeat ECHO for LV function, scheduled the same day. See order, I tried to call him to discuss, but he did not answer, no Voice mail. documented in this encounter [facility] 10-09-2024 Miscellaneous Notes Addended by: DANISHA SPAIN on: 10/10/2024 01:52 PM Modules accepted: Orders documented in this encounter [facility] 10-09-2024 Note Addended by: DANISHA SPAIN on: 10/10/2024 01:52 PM Modules accepted: Orders [facility] 10-09-2024 Note Addended by: DANISHA SPAIN on: 10/10/2024 01:52 PM Modules accepted: Orders [facility] 10-09-2024 Note Addended by: DANISHA SPAIN on: 10/10/2024 01:52 PM Modules accepted: Orders [facility] 10-09-2024 Note BPCI 21 day outreach BPCI hospitalization: Procedures: LHC on 09/14/24 for increased daily angina despite increased anti-anginal medications. Echo was with preserved EF 55%, now decreased with EF of 38% on 08/24/24. EMR reviewed. The patient had office visit with Cardiology 09/28/24. Called mobile number [phone] and spoke to the patient. The patient [...] report today. Scheduled BPCI 30 day outreach. [facility] 10-02-2024 Note 10/02/24 1009 BPCI Late Drop? Program late drop? No BPCI Outreach Assessment Selection Which outreach assessment are you completing? 14 Day BPCI - 14 Day Outreach Did patient answer phone call? No [facility] 10-02-2024 Note BPCI 14 day outreach [...] day outreach-has patient heard about CPAP machine? [facility] 09-28-2024 Telephone encounter Note Pt asking when he needs another Echo. Please call patient [facility] 09-28-2024 Miscellaneous Notes Pt asking when he needs another Echo. Please call patient documented in this encounter [facility] 09-28-2024 History of Present illness Narrative Images from the original note were not included. [facility] [address] [place] [address] Dept: [phone] Dept Visit Type: Established NAME: Shannon Olson [...] artery and a PCI with PTCA, IVL, PUH was completed successfully. Right radial artery was [...] Past Medical History: Diagnosis Date Angina pectoris ([facility]) Anxiety Arrhythmia A-fib Asthma CAD (coronary artery disease) Cerebral artery occlusion with cerebral infarction ([facility]) COPD (chronic obstructive pulmonary disease) ([facility]) Depression WATTS (dyspnea on exertion) Fatigue GERD (gastroesophageal reflux disease) History of cardioversion 05/07/2016 Successful conversion of a-fib to SR History of left heart catheterization 05/07/2016 60% stenosis right posterior descending, patent stents in prox, mid & distal RCA, patent stents in med LCx. Findings unchanged from previous study. 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 NSTEMI (non-ST elevated myocardial infarction) ([facility]) 12/2012 NSTEMI (non-ST elevated myocardial infarction) ([facility]) 05/2014 Obesity Old SC (myocardial infarction) HIPOLITO (obstructive sleep apnea) HIPOLITO on CPAP PAF (paroxysmal atrial fibrillation) ([facility]) Rheumatoid arthritis(714.0) ([facility]) ST segment elevation myocardial infarction (STEMI) of anterolateral wall, subsequent episode of care ([facility]) TIA (transient ischemic attack) Social History Tobacco Use Smoking status: Never Smokeless tobacco: Never Substance Use Topics Alcohol use: Not Currently Past Surgical History: Procedure Laterality Date CAPSULOTOMY, HAND 05/07/2016 CARDIAC CATHETERIZATION N/A 03/01/2023 Performed by Zoie Gonzales MD at [facility] Cardiac Cath/EP Lab CARDIAC CATHETERIZATION Left 09/14/2024 Performed by Dominguez Ortega MD at [facility] Cardiac Cath/EP Lab CARDIAC CATHETERIZATION N/A 09/14/2024 Performed by Dominguez Ortega MD at [facility] Cardiac Cath/EP Lab CARDIAC CATHETERIZATION N/A 09/14/2024 Performed by Dominguez Ortega MD at [facility] Cardiac Cath/EP Lab CARDIAC CATHETERIZATION N/A 09/14/2024 Performed by Dominguez Ortega MD at [facility] Cardiac Cath/EP Lab CARDIAC PROCEDURE Left [...] CORONARY ANGIOPLASTY WITH STENT PLACEMENT Left 12/01/2021 REGIONAL MARKETING MANAGER/PCI to prox RCA CORONARY ANGIOPLASTY WITH STENT [...] lb 12.8 oz (137 kg) Height: 6' 2" (1.88 m) Physical Exam Constitutional: NAD Psychiatric: [...] QT Interval 681 QTC Interval 636 P [place] 14 QRS [place] -5 T Wave [place] 166 DC Interval 202 Impression Sinus bradycardia Left bundle branch block Electronically Signed On 09-15-2024 19:13:56 EDT by Alvaro Elliott ECHOCARDIOGRAM: 08/24/24 TRANSTHORACIC ECHOCARDIOGRAM (TTE) COMPLETE [...] coronary arteries. Last cath from 2022 showed REGIONAL MARKETING MANAGER of the mid RCA, patent LCx and [...] 7:24 AM Assessment /Plan 1. 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 (Primary)with reduced EF of 38%, S/P [...] NO Cardiac rehab , He lives in [place] and is active with yard work and working on his payleven. -- Lifestyle modifications, low fat,low chol diet, [...] in about 3 months (around 12/29/2024) for Danisha. [place] GONZALEZ - Date of Service: 09/28/2024 Nurse Practitioner in Interventional Cardiology [facility] [address] [place] [address] p [phone] [email or web address] documented in this encounter [facility] 09-28-2024 Instructions DANIELLE Whitehead CNP - 09/28/2024 11:30 AM EDT Reduce norvasc to 5 mg once a day , reduce Ranexa to 500 mg twice a day Add Zetia 10 mg daily Call me in 2-3 weeks [phone] documented in this encounter [facility] 09-25-2024 Note 09/25/24 1037 BPCI Late Drop? Program late drop? No BPCI Outreach Assessment Selection Which outreach assessment are you completing? 7 Day BPCI - 7 Day Outreach Did patient answer phone call? No [facility] 09-25-2024 Note BPCI 7 day outreach- [...] day outreach-how was follow up with Cardiology? [facility] 09-18-2024 History of Present illness Narrative BPCI referral- patient on outpatient [...] in stable condition. documented in this encounter [facility] 09-18-2024 Note BPCI referral- patie nt on outpatient BPCI list today-came to outpatient [...] past. Discharged to home in stable condition. [facility] 09-15-2024 Plan of care note Problem: Pain - Adult Goal: Verbalizes/displays adequate comfort level or baseline comfort level Outcome: Progressing Problem: Safety - Adult Goal: Free from fall injury Outcome: Progressing Problem: Discharge Planning Goal: Discharge to home or other facility with appropriate resources Outcome: Progressing [facility] 09-15-2024 Miscellaneous Notes Problem: Pain - Adult [...] resources Outcome: Progressing Report called to Gia RN 1 Central MEDICAL ART THERAPIST updated on pt status, no improvement in chest pressure and now with room spinning dizziness. MEDICAL ART THERAPIST at pt bedside MEDICAL ART THERAPIST notified of pt c/o chest pressure 10/31 post PCI. Vitals stable. Post procedure EKG being completed. documented in this encounter [facility] 09-14-2024 Plan of care note Problem: Pain - Adult Goal: Verbalizes/displays adequate comfort level or baseline comfort level Outcome: Progressing Problem: Safety - Adult Goal: Free from fall injury Outcome: Progressing Problem: Discharge Planning Goal: Discharge to home or other facility with appropriate resources Outcome: Progressing [facility] 09-14-2024 History of Present illness Narrative S/P PCI Seen in Prep and Recovery for C/O chest burning discomfort and sensation of room spinning. Discomfort not angina and is tender to palpation. Likely due to PCI with IVL and PTCA. Vitals and EKG are stable, no distress. Will observe overnight. Fluids infusing. Fellow and Dr. Ortega updated. Orders placed for admission. documented in this encounter [facility] 09-14-2024 Nurse Note Report called to Gia RN 1 Central [facility] 09-14-2024 Nurse Note MEDICAL ART THERAPIST updated on pt status, no improvement in chest pressure and now with room spinning dizziness. [facility] 09-14-2024 Note Attestation signed by Dominguez [...] of breath after procedure, possibly brilinta related. [place] well through the night into this morning. Assessment/Plan: Plan to discharge today with close follow up, on plavix and eliquis. Continue statin. Close follow up scheduled. Name: Shannon Olson Date of : 1955 Date of Admission: 09/14/2024 Date of Discharge: 09/15/2024 Admitting physician: Dominguez Ortega MD Discharge Attending: Rebecca De Dios APRN - EXTRACTOR AND WRINGER OPERATOR Primary Care Physician: Finn Ferrell MD CC: [...] oz (140 kg) Height: Reason for Admission: [facility] Consultants: Cardiac Rehab HOSPITAL ADMISSION PROBLEM LIST: Patient Active Problem List Diagnosis Status post left heart catheterization 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 Class 2 obesity in adult Unstable angina (CMS/HCC) ([facility]) WATTS (dyspnea on exertion) Obesity Hyperlipidemia COPD (chronic obstructive pulmonary disease) ([facility]) Hypertension Atherosclerotic heart disease of pauma coronary artery with other forms of angina pectoris ([facility]) HIPOLITO on CPAP NSTEMI (non-ST elevated myocardial infarction) ([facility]) CAD (coronary artery disease) FPC current use of antiarrhythmic drug termite treater helper current use of anticoagul (more content not included)... [facility] 09-14-2024 Nurse Note MEDICAL ART THERAPIST at pt bedside [facility] 09-14-2024 Hospital Discharge instructions Rebecca De Diso, TILE AND MARBLE SETTER - EXTRACTOR AND WRINGER OPERATOR - 09/14/2024 2:35 PM EDT Call your doctor with any medication questions or if you notice any side effects from your medications. If you are unable to fill your medications, please call your Drilling Field Specialist immediately. The office number is located with [...] for 24 hours. GIVE PCI PACKET (FROM [employer]) TO PATIENT Give Coronary Artery Discharge Booklet [...] Cardiac Rehab The Cardiac Rehab team at [facility] consists of highly skilled exercise physiologists, nurses, [...] your heart. We have facilities at both [facility]. At both locations we have street level parking which is free and our sites are easily accessible. For both [facility] you can contact us at . We invite you to call us with your questions or to get started in our program. If you have other questions or concerns be sure to ask your provider during your follow up visit. We look forward to seeing you there. Our locations: [facility] [address] [facility] Ground Floor [id number] - Ground floor The following attachments cannot be sent through Care Everywhere.Lowering Your Risk of Heart Disease (Bruneian)Heart Healthy Diet (Bruneian)documented in this encounter [facility] 09-14-2024 Note MEDICAL ART THERAPIST notified of pt c/ o chest pressure 6/10 post PCI. Vitals stable. Post procedure EKG being completed. [facility] 09-14-2024 Nurse Note MEDICAL ART THERAPIST notified of pt c/o chest pressure 6/10 post PCI. Vitals stable. Post procedure EKG being completed. [facility] 09-14-2024 Note H&P reviewed. The latia bryant was examined and there are no changes to the H&P. [facility] 09-12-2024 Telephone encounter Note Prep for proc completed. [facility] Work Phone: 09-12-2024 Miscellaneous Notes Prep for proc completed. TILE AND MARBLE SETTER notified to complete prep for proc orders. Procedure being done: [facility] Date/time of procedure: 09/14/24 11 am Procedure [...] (first floor) at the hospital entrance at [address] [place] [address]. Nothing to eat or drink after midnight [...] of procedure. Please make arrangements for a car pick up driver after the procedure. You will not [...] call the Prep and Recovery area at [phone]. The schedule is not finalized until the afternoon, so please avoid calling before 4:30 pm. Dx: Procedure: LHC Date/Time: 09/14/2024 at 11:00a Surgeon: PB Location: [facility] Admission: OP Anesthesia: N/A No auth req [...] need to fax order for labs to [facility]. Will add on for 09/14/2024 at 11 am., He will need an EKG the day of, has a recent OV from 08/24/2024. Notified patient of date and time. documented in this encounter [facility] 09-12-2024 Miscellaneous Notes Addended by: MIRYAM CASAS on: 09/12/2024 03:26 PM Modules accepted: Orders documented in this encounter [facility] 09-12-2024 Note Addended by: MIRYAM BELLAMY on: 09/12/2024 03:26 PM Modules accepted: Orders [facility] 09-12-2024 Note Addended by: MIRYAM BELLAMY on: 09/12/2024 03:26 PM Modules accepted: Orders [facility] 09-12-2024 Note Attestation signed by Dominguez [...] the planned procedure. ADDENDUM: Pt scheduled for LHC with Dr. Ortega on 09/14/24 at 11:00AM. [...] dated 08/24/[address] Or[address] [facility] [address] [facility] [address] Dept: [phone] Dept Visit Type: Established NAME: Shannon Olson [...] of left h (more content not included)... [facility] 09-12-2024 Note Attestation signed by Dominguez [...] the planned procedure. ADDENDUM: Pt scheduled for [facility] with Dr. Ortega on 09/14/24 at 11:00AM. [...] dated 08/24/[address] [facility] [address] [email or web address] [address] Dept: [phone] Dept Visit Type: Established NAME: Shannon Olson [...] of left h (more content not included)... [facility] 09-12-2024 Note TILE AND MARBLE SETTER notified to [facility] plete prep for proc orders. Procedure being done: [facility] Date/time of procedure: 09/14/24 11 am Procedure [...] EKG on arrival [] BMP [] CBC [facility] 09-12-2024 Telephone encounter Note TILE AND MARBLE SETTER notified to complete prep for proc orders. Procedure being done: [facility] Date/time of procedure: 09/14/24 11 am Procedure [...] EKG on arrival [] BMP [] CBC [facility] 09-12-2024 Telephone encounter Note Labs scanned in under Media [facility] 09-12-2024 Telephone encounter Note I called and requested labs. She is faxing them over. [facility] 09-08-2024 Note PROCEDURE: LEFT HEAR T CATH PROCEDURE DATE: 09/14/24 PROCEDURE TIME: 11 am ARRIVE AT 9:30 am Report to the Central Lounge (first floor) at the hospital entrance at [address] [place] [address]. Nothing to eat or drink after midnight [...] of procedure. Please make arrangements for a car pick up driver after the procedure. You will not [...] call the Prep and Recovery area at [phone]. The schedule is not finalized until the afternoon, so please avoid calling before 4:30 pm. [facility] 09-08-2024 Telephone encounter Note Images from the original note were not included. PROCEDURE: LEFT HEART CATH PROCEDURE DATE: 09/14/24 PROCEDURE TIME: 11 am ARRIVE AT 9:30 am Report to the Central Lounge (first floor) at the hospital entrance at [address] [place] [address] Street. Nothing to eat or drink after midnight [...] of procedure. Please make arrangements for a car pick up driver after the procedure. You will not [...] call the Prep and Recovery area at [phone]. The schedule is not finalized until the afternoon, so please avoid calling before 4:30 pm. [facility] 09-08-2024 Miscellaneous Notes Images from the original note were not included. PROCEDURE: LEFT HEART CATH PROCEDURE DATE: 09/14/24 PROCEDURE TIME: 11 am ARRIVE AT 9:30 am Report to the Central Lounge (first floor) at the hospital entrance at [address] [place] [address]. Nothing to eat or drink after midnight [...] of procedure. Please make arrangements for a car pick up driver after the procedure. You will not [...] call the Prep and Recovery area at [phone]. The schedule is not finalized until the afternoon, so please avoid calling before 4:30 pm. Dx: Procedure: LHC Date/Time: 09/14/2024 at 11:00a Surgeon: PB Location: [facility] Admission: OP Anesthesia: N/A No auth req [...] need to fax order for labs to [facility]. Will add on for 09/14/2024 at 11 am., He will need an EKG the day of, has a recent OV from 08/24/2024. Notified patient of date and time. documented in this encounter [facility] 09-07-2024 Note Dx: Procedure: [facility] Date/Time: 09/14/2024 at 11:00a Surgeon: PB Location: [facility] Admission: OP Anesthesia: N/A No auth req per Medicare. On PB calendar and requested on [employer]. [facility] 09-07-2024 Telephone encounter Note Dx: Procedure: [facility] Date/Time: 09/14/2024 at 11:00a Surgeon: PB Location: [facility] Admission: OP Anesthesia: N/A No auth req per Medicare. On PB calendar and requested on [employer]. [facility] 09-07-2024 Miscellaneous Notes Dx: Procedure: [facility] Date/Time: 09/14/2024 at 11:00a Surgeon: PB Location: [...] need to fax order for labs to [facility]. Will add on for 09/14/2024 at 11 am., He will need an EKG the day of, has a recent OV from 08/24/2024. Notified patient of date and time. documented in this encounter [facility] 09-07-2024 Telephone encounter Note See order for [facility] on 09/14/2024. [facility] 09-07-2024 Miscellaneous Notes See order for [facility] on 09/14/2024. Addended by: DANISHA SPAIN on: [...] returns. Pt requesting Imdur 60 mg to [facility] pharmacy and has more questions Phone call [...] with Dr. Ortega. documented in this encounter [facility] 09-07-2024 Telephone encounter Note Phone to patient, Dr. Ortega has reviewed his ECHO, reduce EF as compared to previous. He call the office with increased Episodes of angina. Taking more SL NTG than usual. Have max out his anti-angina medications. Holter monitor without atrial fibrillation. Low burden of PAC's and PVC's. Will need to fax order for labs to [facility]. Will add on for 09/14/2024 at 11 am., He will need an EKG the day of, has a recent OV from 08/24/2024. Notified patient of date and time. [facility] 08-30-2024 Note Addended by: DANISHA SPAIN on: 08/30/2024 11:32 AM Modules accepted: Orders [facility] 08-30-2024 Note Addended by: DANISHA SPAIN on: 08/30/2024 11:32 AM Modules accepted: Orders [facility] 08-30-2024 Note Addended by: DANISHA SPAIN on: 08/30/2024 11:32 AM Modules accepted: Orders [facility] 08-30-2024 Note Addended by: DANISHA SPAIN on: 08/30/2024 11:32 AM Modules accepted: Orders [facility] 08-30-2024 Miscellaneous Notes Addended by: DANISHA SPAIN [...] returns. Pt requesting Imdur 60 mg to [facility] pharmacy and has more questions Phone call to patient. 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 He [...] with Dr. Ortega. documented in this encounter [facility] 08-30-2024 Telephone encounter Note Return phone call [...] discuss results with him when he returns. [facility] 08-30-2024 Telephone encounter Note Pt requesting Imdur 60 mg to [facility] and has more questions [facility] 08-29-2024 Telephone encounter Note Phone call to patient. 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 He felt really good with no angina or SOB. He did increase the lopressor to 50 mg bid. He still does not have a new CPAP machine, but has been calling about. Reviewed the results of the Echocardiogram, now with reduced EF ~ 38%, and and RVE. , JET. I will review with Dr. Ortega. [facility] 08-29-2024 Miscellaneous Notes Phone call to patient. 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 He [...] with Dr. Ortega. documented in this encounter [facility] 08-24-2024 History of Present illness Narrative Images from the original note were not included. [facility] [address] [facility] [facility] [address] Dept: [phone] Dept Visit Type: Established NAME: Shannon Olson [...] Past Medical History: Diagnosis Date Angina pectoris ([facility]) Anxiety Arrhythmia A-fib Asthma CAD (coronary artery disease) Cerebral artery occlusion with cerebral infarction ([facility]) COPD (chronic obstructive pulmonary disease) ([facility]) Depression WATTS (dyspnea on exertion) Fatigue GERD (gastroesophageal reflux disease) History of cardioversion 05/07/2016 Successful conversion of a-fib to SR History of left heart catheterization 05/07/2016 60% stenosis right posterior descending, patent stents in prox, mid & distal RCA, patent stents in med LCx. Findings unchanged from previous study. 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 NSTEMI (non-ST elevated myocardial infarction) ([facility]) 12/2012 NSTEMI (non-ST elevated myocardial infarction) ([facility]) 05/2014 Obesity [place] (myocardial infarction) HIPOLITO (obstructive sleep apnea) HIPOLITO on CPAP PAF (paroxysmal atrial fibrillation) ([facility]) Rheumatoid arthritis(714.0) ([facility]) ST segment elevation myocardial infarction (STEMI) of anterolateral wall, subsequent episode of care ([facility]) TIA (transient ischemic attack) Social History Tobacco Use Smoking status: Never Smokeless tobacco: Never Substance Use Topics Alcohol use: Not Currently Past Surgical History: Procedure Laterality Date CAPSULOTOMY, HAND 05/07/2016 CARDIAC CATHETERIZATION N/A 03/01/2023 Performed by Zoie Gonzales MD at [facility] Cardiac Cath/EP Lab CARDIAC PROCEDURE Left [...] CORONARY ANGIOPLASTY WITH STENT PLACEMENT Left 12/01/2021 REGIONAL MARKETING MANAGER/PCI to prox RCA CORONARY ANGIOPLASTY WITH STENT [...] (!) 304 lb (138 kg) Height: 6' 2" (1.88 m) Physical Exam Constitutional: NAD Psychiatric: [...] PROCEDURE 03/01/2023 10:44 AM (Final) Conclusion Impression: REGIONAL MARKETING MANAGER of mid RCA that was previously treated [...] 10:44 AM Assessment /Plan 1. 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 (Primary),with preserved EF 55% ( per [...] these results. 2. PAF (paroxysmal atrial fibrillation) ([facility]) - - Continue Amiodarone 200- mg daily, [...] in about 2 months (around 10/24/2024). [place] GONZALEZ - Date of Service: 08/24/2024 Nurse Practitioner in Interventional Cardiology [facility] [address] [address] p [phone] [email or web address] documented in this encounter [facility] 08-24-2024 Instructions DANIELLE Whitehead CNP - 08/24/2024 3:00 PM EDT Increase Lopressor to 50 mg twice day Monitor Blood pressure and heart rate, call if you get dizzy , If blood pressure below 100 systolic ( top number) call me. [phone] documented in this encounter [facility] 07-20-2024 History of Present illness Narrative Images from the original note were not included. [facility] [address] [place] [id number] Dept: [phone] Dept Visit Type: Established NAME: Shannon Olson [...] management advised HTN (hypertension) Hyperlipidemia Hypertension Hypokalemia FPC current use of antiarrhythmic drug FPC current use of anticoagulant NSTEMI (non-ST elevated myocardial infarction) ([facility]) ([facility]) 12/2012 NSTEMI (non-ST elevated myocardial infarction) ([facility]) ([facility]) 05/2014 Obesity [place] (myocardial infarction) HIPOLITO (obstructive sleep apnea) HIPOLITO on CPAP PAF (paroxysmal atrial fibrillation) ([facility]) Rheumatoid arthritis(714.0) ([facility]) ST segment elevation myocardial infarction (STEMI) of anterolateral wall, subsequent episode of care ([facility]) ([facility]) TIA (transient ischemic attack) Social History Tobacco Use Smoking status: Never Smokeless tobacco: Never Substance Use Topics Alcohol use: Not Currently Past Surgical History: Procedure Laterality Date CAPSULOTOMY, HAND 05/07/2016 CARDIAC CATHETERIZATION N/A 03/01/2023 Performed by Zoie Gonzales MD at [facility] Cardiac Cath/EP Lab CARDIAC PROCEDURE Left [...] CORONARY ANGIOPLASTY WITH STENT PLACEMENT Left 12/01/2021 REGIONAL MARKETING MANAGER/PCI to prox RCA CORONARY ANGIOPLASTY WITH STENT [...] Cuff Size: Adult) Pulse 66 Ht 6' 2" (1.88 m) Wt (!) 305 lb 6.4 [...] PROCEDURE 03/01/2023 10:44 AM (Final) Conclusion Impression: REGIONAL MARKETING MANAGER of mid RCA that was previously treated [...] 10:44 AM Assessment /Plan . 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 (Primary),with preserved EF 55% ( per [...] Service: 07/06/2024 Nurse Practitioner in Interventional Cardiology [facility] There are no diagnoses linked to this encounter. No follow-ups on file. [place] GONZALEZ - Date of Service: 07/13/2024 Nurse Practitioner in Interventional Cardiology [facility] [place] [address] p [phone] [email or web address] documented in this encounter [facility] 07-20-2024 Instructions DANIELLE Whitehead CNP - 07/20/2024 2:00 PM EST Increase Ranexa to 1000 mg in the am, and 500 mg in the evening. documented in this encounter [facility] 07-13-2024 Telephone encounter Note Patient cancelled his appt today, due to bad weather. He is feeling a little better. Has used SL NTG a few times. He is R/S for next week. [facility] 07-13-2024 Miscellaneous Notes Patient cancelled his appt [...] Medication Name: no documented in this encounter [facility] 07-13-2024 Telephone encounter Note Name of Caller: Shannon Contact Reason for Appointment: Cancel and R/S 07/13/2024 at 130pm due to weather Office Name: [facility] [address] Medication Refills need, if any: no Medication Name: no [facility] 07-06-2024 History of Present illness Narrative Images from the original note were not included. [facility] [address] [facility] [facility] [address] Dept: [phone] Dept Visit Type: Established NAME: Shannon Olson [...] infarction (HCC) COPD (chronic obstructive pulmonary disease) ([facility]) Depression WATTS (dyspnea on exertion) Fatigue GERD (gastroesophageal reflux disease) History of cardioversion 05/07/2016 Successful conversion of a-fib to SR History of left heart catheterization 05/07/2016 60% stenosis right posterior descending, patent stents in prox, mid & distal RCA, patent stents in med LCx. Findings unchanged from previous study. 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 FPC current use of antiarrhythmic drug FPC current use of anticoagulant NSTEMI (non-ST elevated myocardial infarction) ([facility]) ([facility]) 12/2012 NSTEMI (non-ST elevated myocardial infarction) ([facility]) ([facility]) 05/2014 Obesity Old SC (myocardial infarction) HIPOLITO (obstructive sleep apnea) HIPOLITO on CPAP PAF (paroxysmal atrial fibrillation) ([facility]) Rheumatoid arthritis(714.0) ([facility]) ST segment elevation myocardial infarction (STEMI) of anterolateral wall, subsequent episode of care ([facility]) ([facility]) TIA (transient ischemic attack) Social History Tobacco Use Smoking status: Never Smokeless tobacco: Never Substance Use Topics Alcohol use: Not Currently Past Surgical History: Procedure Laterality Date CAPSULOTOMY, HAND 05/07/2016 CARDIAC CATHETERIZATION N/A 03/01/2023 Performed by Zoie Gonzales MD at [facility] Cardiac Cath/EP Lab CARDIAC PROCEDURE Left [...] CORONARY ANGIOPLASTY WITH STENT PLACEMENT Left 12/01/2021 REGIONAL MARKETING MANAGER/PCI to prox RCA CORONARY ANGIOPLASTY WITH STENT [...] (!) 311 lb (141 kg) Height: 6' 2" (1.88 m) Physical Exam Constitutional: NAD Psychiatric: [...] PROCEDURE 03/01/2023 10:44 AM (Final) Conclusion Impression: REGIONAL MARKETING MANAGER of mid RCA that was previously treated [...] 10:44 AM Assessment /Plan 1. 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 (Primary),with preserved EF 55% ( per [...] in about 1 week (around 07/13/2024) for DanishaCarrol GONZALEZ - Date of Service: 07/06/2024 Nurse Practitioner in Interventional Cardiology [facility] [address] [address] p [phone] [email or web address] documented in this encounter [facility] 07-06-2024 History of Present illness Narrative Images from the original note were not included. [facility] [address] [place] [id number] Dept: [phone] Dept Visit Type: Established NAME: Shannon Olson [...] disease) Cerebral artery occlusion with cerebral infarction ([facility]) COPD (chronic obstructive pulmonary disease) ([facility]) Depression WATTS (dyspnea on exertion) Fatigue GERD (gastroesophageal reflux disease) History of cardioversion 05/07/2016 Successful conversion of a-fib to SR History of left heart catheterization 05/07/2016 60% stenosis right posterior descending, patent stents in prox, mid & distal RCA, patent stents in med LCx. Findings unchanged from previous study. 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 NSTEMI (non-ST elevated myocardial infarction) ([facility] ([facility]) 12/2012 NSTEMI (non-ST elevated myocardial infarction) ([facility] ([facility]) 05/2014 Obesity Old SC (myocardial infarction) HIPOLITO (obstructive sleep apnea) HIPOLITO on CPAP PAF (paroxysmal atrial fibrillation) ([facility]) Rheumatoid arthritis(714.0) ([facility]) ST segment elevation myocardial infarction (STEMI) of anterolateral wall, subsequent episode of care ([facility]) ([facility]) TIA (transient ischemic attack) Social History Tobacco Use Smoking status: Never Smokeless tobacco: Never Substance Use Topics Alcohol use: Not Currently Past Surgical History: Procedure Laterality Date CAPSULOTOMY, HAND 05/07/2016 CARDIAC CATHETERIZATION N/A 03/01/2023 Performed by Zoie Gonzales MD at [facility] Cardiac Cath/EP Lab CARDIAC PROCEDURE Left [...] CORONARY ANGIOPLASTY WITH STENT PLACEMENT Left 12/01/2021 REGIONAL MARKETING MANAGER/PCI to prox RCA CORONARY ANGIOPLASTY WITH STENT [...] (!) 311 lb (141 kg) Height: 6' 2" (1.88 m) Physical Exam Constitutional: NAD Psychiatric: [...] PROCEDURE 03/01/2023 10:44 AM (Final) Conclusion Impression: REGIONAL MARKETING MANAGER of mid RCA that was previously treated [...] 10:44 AM Assessment /Plan 1. 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 (Primary),with preserved EF 55% ( per [...] in about 1 week (around 07/13/2024) for DanishaCarrol GONZALEZ - Date of Service: 07/06/2024 Nurse Practitioner in Interventional Cardiology [facility] [place] [address] p [phone] [email or web address] documented in this encounter [facility] 07-06-2024 Instructions DANIELLE Whitehead CNP - 07/06/2024 [...] doing chores. 7 documented in this encounter [facility] 07-06-2024 Telephone encounter Note Phone call to patient , He is having increased angina, Agreeable to OV today at 2:30 pm. [facility] Work Phone: 07-06-2024 Miscellaneous Notes Phone call [...] to come in for appt if appropriate. 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 Patient c/o CP walking around the house today. nitroglycerin has eased some of the pain, some SOB when he walks. Requesting an appt today. documented in this encounter [facility] 07-06-2024 Telephone encounter Note Patient called into [...] to come in for appt if appropriate. 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 [facility] 07-06-2024 Telephone encounter Note Patient c/o CP walking around the house today. nitroglycerin has eased some of the pain, some SOB when he walks. Requesting an appt today. [facility] 05-22-2024 Telephone encounter Note I spoke w/ pt, confirmed RX request. [facility] 05-22-2024 Miscellaneous Notes I spoke w/ pt, confirmed RX request. Patient requesting refill Imdur (isosorbide) 60mg metoprolol tartrate (Lopressor) [address] [facility] verified documented in this encounter [facility] 05-22-2024 Telephone encounter Note Patient requesting refill Imdur (isosorbide) 60mg metoprolol tartrate (Lopressor) [address] [facility] verified [facility] 04-28-2024 Telephone encounter Note Received fax from pharmacy for refill of rosuvastatin [address] Ortega 02/01/24. Lipid panel completed 02/19/23. Pended rx, Rika Jenkins APRN to sign. [facility] 04-28-2024 Miscellaneous Notes Received fax from pharmacy for refill of rosuvastatin [address] [facility] [address] Ortega 02/01/24. Lipid panel completed 02/19/23. Pended rxRika APRN to sign. documented in this encounter [facility] 03-09-2024 Telephone encounter Note [facility] 02/01/24 [facility] 03-09-2024 Miscellaneous Notes [facility] 02/01/24 documented in this encounter [facility] 02-01-2024 History of Present illness Narrative Images from the original note were not included. [facility] - [address] [address] Dept: [phone] Dept Visit type: Established : 1955 Reason for Visit: Hospital Follow-up Assessment and Plan 1. Obesity (BMI 30-39.9) - [facility] 2. 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 3. Essential hypertension 4. Mixed hyperlipidemia [...] establish care with me, as his primary line producer has retired. He has a history of [...] management advised HTN (hypertension) Hyperlipidemia Hypertension Hypokalemia FPC current use of antiarrhythmic drug FPC current use of anticoagulant NSTEMI (non-ST elevated myocardial infarction) ([facility] ([facility]) 12/2012 NSTEMI (non-ST elevated myocardial infarction) ([facility] ([facility]) 05/2014 Obesity Old SC (myocardial infarction) HIPOLITO (obstructive sleep apnea) HIPOLITO on CPAP PAF (paroxysmal atrial fibrillation) ([facility]) Rheumatoid arthritis(714.0) ([facility]) ST segment elevation myocardial infarction (STEMI) of anterolateral wall, subsequent episode of care ([facility]) ([facility]) TIA (transient ischemic attack) Social History Tobacco Use Smoking status: Never Smokeless tobacco: Never Substance Use Topics Alcohol use: Not Currently Past Surgical History: Procedure Laterality Date CAPSULOTOMY, HAND 05/07/2016 CARDIAC CATHETERIZATION N/A 03/01/2023 Performed by Zoie Gonzales MD at [facility] Cardiac Cath/EP Lab CARDIAC PROCEDURE Left [...] CORONARY ANGIOPLASTY WITH STENT PLACEMENT Left 12/01/2021 REGIONAL MARKETING MANAGER/PCI to prox RCA CORONARY ANGIOPLASTY WITH STENT [...] (!) 308 lb (140 kg) Height: 6' 2" (1.88 m) Physical Exam Constitutional: General: He [...] Reviewed and Summarized No results found for: "EFBP", "PLVEF", "LVEFPHYS", "LVEF2D", EF Review of tests/labs done/ordered within my specialty: EKG in office: Review of tests/labs done/ordered outside my specialty: Independent interpretation of tests: Dominguez Ortega MD documented in this encounter [facility] 12-21-2023 Telephone encounter Note Spoke with patient [...] office back if he has any concerns. [facility] 12-21-2023 Miscellaneous Notes Spoke with patient and [...] Patient states he was returning call to [facility] to discuss his medication. Please contact to advise. Spoke with patient and PCP Dr. Ferrell prescribed an injectable medication for weight loss. Patient went to car pick up driver medication from pharmacy and it was >$300. [...] through our pharmacy. documented in this encounter [facility] 12-20-2023 Telephone encounter Note Patient states he was returning call to [facility] to discuss his medication. Please contact to advise. [facility] 12-20-2023 Miscellaneous Notes Patient states he was returning call to [facility] to discuss his medication. Please contact to advise. Spoke with patient and PCP Dr. Ferrell prescribed an injectable medication for weight loss. Patient went to car pick up driver medication from pharmacy and it was >$300. [...] through our pharmacy. documented in this encounter [facility] 12-20-2023 Telephone encounter Note Spoke with patient and PCP Dr. Ferrell prescribed an injectable medication for weight loss. Patient went to car pick up driver medication from pharmacy and it was >$300. Patient requested our office called PCP office to see what further interventions can be done. Spoke with PCP office and medication called Wegovy (semaglutide). Explained patient's situation and office has options for patient. Instructed patient PCP office will reach out to patient to discuss. [facility] 12-20-2023 Telephone encounter Note Patient called RE: weight loss injection his PCP is trying to rx. He can not remember the name. He tried to get filled at his pharmacy and it is > $300. He is wondering if we can help him get it through our pharmacy. [facility] 07-29-2023 History of Present illness Narrative [facility] [address] [facility] [address] Dept: [phone] Dept Loc: [phone] Visit type: Established : 1955 Chief Complaint: [...] Past Medical History: Diagnosis Date Angina pectoris ([facility]) Anxiety Arrhythmia A-fib Asthma CAD (coronary artery disease) Cerebral artery occlusion with cerebral infarction ([facility]) COPD (chronic obstructive pulmonary disease) ([facility]) Depression WATTS (dyspnea on exertion) Fatigue GERD (gastroesophageal reflux disease) History of cardioversion 05/07/2016 Successful conversion of a-fib to SR History of left heart catheterization 05/07/2016 60% stenosis right posterior descending, patent stents in prox, mid & distal RCA, patent stents in med LCx. Findings unchanged from previous study. 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 FPC current use of anticoagulant NSTEMI (non-ST elevated myocardial infarction) ([facility] ([facility]) 12/2012 NSTEMI (non-ST elevated myocardial infarction) ([facility] ([facility]) 05/2014 Obesity Old SC (myocardial infarction) HIPOLITO (obstructive sleep apnea) HIPOLITO on CPAP PAF (paroxysmal atrial fibrillation) ([facility]) Rheumatoid arthritis(714.0) ([facility]) ST segment elevation myocardial infarction (STEMI) of anterolateral wall, subsequent episode of care ([facility]) ([facility]) TIA (transient ischemic attack) Past Surgical History Past Surgical History: Procedure Laterality Date CAPSULOTOMY, HAND 05/07/2016 CARDIAC CATHETERIZATION N/A 03/01/2023 Performed by Zoie Gonzales MD at [facility] Cardiac Cath/EP Lab CARDIAC PROCEDURE Left [...] CORONARY ANGIOPLASTY WITH STENT PLACEMENT Left 12/01/2021 REGIONAL MARKETING MANAGER/PCI to prox RCA CORONARY ANGIOPLASTY WITH STENT [...] Review of Systems Physical Examination: Vitals: Vitals: 03/07/24 1033 BP: 126/78 BP Location: Right arm Patient Position: Sitting BP Cuff Size: Adult Pulse: 60 SpO2: 96% Weight: (!) 304 lb (138 kg) Height: 6' 2.5" (1.892 m) Body mass index is 38.51 [...] abnormalities. Last cardiac catheterization: 03/01/2023 Conclusion Impression: REGIONAL MARKETING MANAGER of mid RCA that was previously treated [...] added Assessment and Plan: 1. 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 2. Essential hypertension, benign 3. Mixed hyperlipidemia 4. PAF (paroxysmal atrial fibrillation) ([facility]) 5. Chronic diastolic heart failure (HCC) 1. 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: With known REGIONAL MARKETING MANAGER of the mid right coronary artery: Continue [...] Handicap Placard 4. PAF (paroxysmal atrial fibrillation) (HCC) He has been maintained on amiodarone 200 mg daily, as well as Eliquis 5 mg twice daily. 5. Chronic diastolic heart failure (HCC) Continue Aldactone 25 mg twice a day as well as torsemide 20 mg a day. - Handicap Placard I will obtain his blood work from his primary care physician. He wishes to establish with Dr. Ortega upon Dr. Gonzales[facility] [place] [facility]. He will follow-up in 6 months or sooner if issues arise. documented in this encounter [facility] 07-06-2023 Telephone encounter Note Pt called back in requesting a call back from Dr. Tree Gonzales to discuss a private matter. Please advise [facility] 07-06-2023 Miscellaneous Notes Pt called back in requesting a call back from Dr. Tree Gonzales to discuss a private matter. Please advise Name of caller: Fide Contact phone number: [phone] ext [phone] Relationship to Patient: Ramon Provider: dr Boyce Practice: Pul Chief Complaint/Reason for Call: New Sleep study and a new order for medicare is needed to approve the Auto Bipap machine Best time of day caller can be reached: Any Patient advised that office/PCP has 24-48 business hours to return their call: Yes Name of caller: Shannon Contact phone number: [phone] Relationship to Patient: patient Provider: Dr. Gonzales Practice: [facility] Pulmonary Chief Complaint/Reason for Call: Patient states that he would like to receive a call from Dr. Gonzales directly to discuss a private matter. Please advise. Best time of day caller can be reached: Any Patient advised that office/PCP has 24-48 business hours to return their call: No documented in this encounter [facility] 07-05-2023 Discharge summary Note Date/Time July 05, 2023 12:06pm [facility] Medical Records Department [address] [place] [address] Emergency Department Summary 07/05/23 MR#: [id number] Acct: [id number] Name: SHANNON OLSON Rep #:[id number] : 1955 67 From: Reynaldo Gaviria DO [...] bloody stools. He denies fevers or chills. [facility] Medical History Anxiety Atrial fibrillation CAD (coronary artery disease) Cardiology follow-up encounter Chest pain Cholelithiasis with chronic cholecystitis COPD (chronic obstructive pulmonary disease) COPD (chronic obstructive pulmonary disease) Coronary atherosclerosis of pauma coronary vessel Depression Difficulty swallowing Dysphagia Epidermal [...] 74.9 H Lymph % (Auto) 15.2 L Harmon % (Auto) 7.1 Eos % (Auto) 1.4 [...] Clarity Clear Urine pH 6.0 Ur Specific Anson 1.015 Urine Protein Negative Urine Glucose (UA) [...] Signed: Beka Zuleta MD at 13:52 EST Reading Location ID and State: [address] [place] [address] , Service support , Discharge Plan Triage Chief Complaint: Constipation [...] your Primary Care Provider. Call [facility] ([phone]) or report to the closest Emergency Room. Call 911 if necessary. 07/05/23 1413 <Electronically signed by Reynaldo Gaviria DO> Cosigner Signature (if applicable): CC: Dr. Finn Ferrell MD ~ Signed [facility] Work Phone: [phone] 148-488802-09-2024 Telephone encounter Note* Telephone Encounter - Melanie Reza - 07/02/2023 10:00 AM EST Name of caller: Fide Contact phone number: [phone] ext [phone] Relationship to Patient: Ramon Provider: dr Boyce Practice: Pulm Chief Complaint/Reason for Call: New Sleep study and a new order for medicare is needed to approve the Auto Bipap machine Best time of day caller can be reached: Any Patient advised that office/PCP has 24-48 business hours to return their call: Yes Edico [id number] Telephone encounter Note* Telephone Encounter - Sapna Smalls - 07/01/2023 2:49 PM EST Name of caller: Shannon Contact phone number: [phone] Relationship to Patient: patient Provider: Dr. Gonzales Practice: [facility] Pulmonary Chief Complaint/Reason for Call: Patient states that he would like to receive a call from Dr. Gonzales directly to discuss a private matter. Please advise. 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 He has not lost a significant amount [...] follow-up in a couple weeks with the senior reliability engineer. Past Medical History: Past Medical History: Diagnosis Date Angina pectoris ([facility]) Anxiety Arrhythmia A-fib Asthma CAD (coronary artery disease) Cerebral artery occlusion with cerebral infarction ([facility]) COPD (chronic obstructive pulmonary disease) ([facility]) Depression WATTS (dyspnea on exertion) Fatigue GERD (gastroesophageal reflux disease) History of cardioversion 05/07/2016 Successful conversion of a-fib to SR History of left heart catheterization 05/07/2016 60% stenosis right posterior descending, patent stents in prox, mid & distal RCA, patent stentsin med LCx. Findings unchanged from previous study. 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 NSTEMI (non-ST elevated myocardial infarction) ([facility] ([facility]) 12/2012 NSTEMI (non-ST elevated myocardial infarction) ([facility]) ([facility]) 05/2014 Obesity Old SC (myocardial infarction) HIPOLITO (obstructive sleep apnea) HIPOLITO on CPAP PAF (paroxysmal atrial fibrillation) ([facility]) Rheumatoid arthritis(714.0) ([facility]) ST segment elevation myocardial infarction (STEMI) of anterolateral wall, subsequent episode of care ([facility]) ([facility]) TIA (transient ischemic attack) Past Surgical History Past Surgical History: Procedure Laterality Date CAPSULOTOMY, HAND 05/07/2016 CARDIAC CATHETERIZATION N/A 03/01/2023 Performed by Zoie Gonzales MD at [facility] Cardiac Cath/EP Lab CARDIAC PROCEDURE Left [...] CORONARY ANGIOPLASTY WITH STENT PLACEMENT Left 12/01/2021 REGIONAL MARKETING MANAGER/PCI to prox RCA CORONARY ANGIOPLASTY WITH STENT [...] lb 12.8 oz (139 kg) Height: 6' 2.5" (1.892 m) Body mass index is 38.86 [...] abnormalities. Last cardiac catheterization: 03/01/2023 Conclusion Impression: REGIONAL MARKETING MANAGER of mid RCA that was previously treated [...] added Assessment and Plan: 1. 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 4. PAF (paroxysmal atrial fibrillation) ([facility]) Continues on amiodarone 200 daily, as well as apixaban 5 mg twice a day. 5. Mixed hyperlipidemia LDL at goal, continue rosuvastatin 40 mg daily. documented in this [facility]01-25-2024 History of Present illness Narrative* DANIELLE Whitehead CNP - 06/17/2023 10:00 AM EST [facility] [address] [facility] [address] Dept: [phone] Dept Loc: [phone] Visit type: Established : 1955 Chief Complaint: [...] and has been unsuccessful in contacting the overcoiler. He has not lost a significant amount [...] follow-up in a couple weeks with the senior reliability engineer. Past Medical History: Past Medical History: Diagnosis Date Angina pectoris ([facility]) Anxiety Arrhythmia A-fib Asthma CAD (coronary artery disease) Cerebral artery occlusion with cerebral infarction ([facility]) COPD (chronic obstructive pulmonary disease) ([facility]) Depression WATTS (dyspnea on exertion) Fatigue GERD (gastroesophageal reflux disease) History of cardioversion 05/07/2016 Successful conversion of a-fib to SR History of left heart catheterization 05/07/2016 60% stenosis right posterior descending, patent stents in prox, mid & distal RCA, patent stentsin med LCx. Findings unchanged from previous study. 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 FPC current use of antiarrhythmic drug FPC current use of anticoagulant NSTEMI (non-ST elevated myocardial infarction) ([facility] ([facility]) 12/2012 NSTEMI (non-ST elevated myocardial infarction) ([facility]) ([facility]) 05/2014 Obesity Old SC (myocardial infarction) HIPOLITO (obstructive sleep apnea) HIPOLITO on CPAP PAF (paroxysmal atrial fibrillation) ([facility]) Rheumatoid arthritis(714.0) ([facility]) ST segment elevation myocardial infarction (STEMI) of anterolateral wall, subsequent episode of care ([facility]) ([facility]) TIA (transient ischemic attack) Past Surgical History Past Surgical History: Procedure Laterality Date CAPSULOTOMY, HAND 05/07/2016 CARDIAC CATHETERIZATION N/A 03/01/2023 Performed by Zoie Gonzales MD at [facility] Cardiac Cath/EP Lab CARDIAC PROCEDURE Left [...] CORONARY ANGIOPLASTY WITH STENT PLACEMENT Left 12/01/2021 REGIONAL MARKETING MANAGER/PCI to prox RCA CORONARY ANGIOPLASTY WITH STENT [...] lb 12.8 oz (139 kg) Height: 6' 2.5" (1.892 m) Body mass index is 38.86 [...] abnormalities. Last cardiac catheterization: 03/01/2023 Conclusion Impression: REGIONAL MARKETING MANAGER of mid RCA that was previously treated [...] added Assessment and Plan: 1. 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 4. PAF (paroxysmal atrial fibrillation) ([facility]) Continues on amiodarone 200 daily, as well as apixaban 5 mg twice a day. 5. Mixed hyperlipidemia LDL at goal, continue rosuvastatin 40 mg daily. documented in this [facility]01-25-2024 Instructions* Patient Instructions* DANIELLE Whitehead CNP - 06/17/2023 10:00 AM EST Reduce minoxidil to 5 mg daily. documented in this [facility]12-28-2023 Procedure [facility]12-28-2023 Procedure [facility]12-18-2023 History of Present illness Narrative* Tree [...] management advised HTN (hypertension) Hyperlipidemia Hypertension Hypokalemia FPC current use of antiarrhythmic drug FPC current use of anticoagulant NSTEMI (non-ST elevated myocardial infarction) ([facility]) ([facility]) 12/2012 NSTEMI (non-ST elevated myocardial infarction) ([facility]) ([facility]) 05/2014 Obesity Old SC (myocardial infarction) HIPOLITO (obstructive sleep apnea) HIPOLITO on CPAP PAF (paroxysmal atrial fibrillation) ([facility]) Rheumatoid arthritis(714.0) ([facility]) ST segment elevation myocardial infarction (STEMI) of anterolateral wall, subsequent episode of care ([facility]) ([facility]) TIA (transient ischemic attack) Social History: Social [...] 140/86 Pulse 52 Resp 18 Ht 6' 2.49" (1.892 m) Wt (!) 306 lb 12.8 [...] sleep medicine. 2. Atherosclerotic heart disease of pauma coronary artery with other forms of angina [...] sleep, prn with me documented in this [facility]12-18-2023 Instructions* Patient Instructions* Marii Kumar Rai, MA - 05/10/2023 10:30 AM EST YOUR APPOINTMENT TODAY [facility] WITH [facility], COPD CLINIC, PULMONARY AND SLEEP MEDICINE OFFICE. PLEASE CALL OUR OFFICE AT [phone] IF YOU HAVE NOT RECEIVED YOUR TEST [...] to make improvements. COVID-19 VACCINATION INFORMATION: PH. [phone] HEALTH.ORG/CORONAVIRUS/VACCINE [facility] Central Scheduling [phone] [facility] Sleep Scheduling [phone] documented in this [place] [id number] Telephone encounter Note* Telephone Encounter - Renate Duke RN - 04/14/2023 9:52 AM EST PC to patient with lab results. He states his abdominal discomfort has improved on lower dose of Ranexa. Will update NALDO [place] [id number] Miscellaneous Notes* Telephone Encounter - Renate Duke [...] lower dose of ranexa. documented in this encounterSFirelands Regional Medical Center South [id number] Telephone encounter Note* Telephone Encounter - DANIELLE Whitehead CNP - 04/13/2023 4:27 PM EST PC to patient, BMP stable, attempted to call patient, but no answer, no voice mail. Please let him know BMP stable, Please ask if abdominal pain is better on lower dose of ranexa. [place] [id number] Telephone encounter Note* Telephone Encounter - Trena Pratt - 04/08/2023 3:35 PM EST Patient requesting refill on metoprolol tartrate 25 MG BID to be sent to [facility]. [place] [id number] Miscellaneous Notes* Telephone Encounter - Trena Pratt - 04/08/2023 3:35 PM EST Patient requesting refill on metoprolol tartrate 25 MG BID to be sent to [facility]. * Telephone Encounter - Renate Duke RN - 04/01/2023 4:26 PM EST Please review and refuse if appropriate. Med stopped at discharge in November documented in this encounterSFirelands Regional Medical Center South [id number] History of Present illness Narrative* DANIELLE Whitehead CNP - 04/08/2023 10:00 AM EST [facility] [address] [place] [id number] Dept: [phone] Dept Loc: [phone] Visit type: Established : 1955 Chief Complaint: [...] Past Medical History: Diagnosis Date Angina pectoris ([facility]) Anxiety Arrhythmia A-fib Asthma CAD (coronary artery disease) Cerebral artery occlusion with cerebral infarction ([facility]) COPD (chronic obstructive pulmonary disease) ([facility]) Depression WATTS (dyspnea on exertion) Fatigue GERD (gastroesophageal reflux disease) History of cardioversion 05/07/2016 Successful conversion of a-fib to SR History of left heart catheterization 05/07/2016 60% stenosis right posterior descending, patent stents in prox, mid & distal RCA, patent stentsin med LCx. Findings unchanged from previous study. 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 FPC current use of antiarrhythmic drug FPC current use of anticoagulant NSTEMI (non-ST elevated myocardial infarction) ([facility] ([facility]) 12/2012 NSTEMI (non-ST elevated myocardial infarction) ([facility]) ([facility]) 05/2014 Obesity Old [place] (myocardial infarction) HIPOLITO (obstructive sleep apnea) HIPOLITO on CPAP PAF (paroxysmal atrial fibrillation) ([facility]) Rheumatoid arthritis(714.0) ([facility]) ST segment elevation myocardial infarction (STEMI) of anterolateral wall, subsequent episode of care ([facility]) ([facility]) TIA (transient ischemic attack) Past Surgical History Past Surgical History: Procedure Laterality Date CAPSULOTOMY, HAND 05/07/2016 CARDIAC CATHETERIZATION N/A 03/01/2023 Performed by Zoie Gonzales MD at [facility] Cardiac Cath/EP Lab CARDIAC PROCEDURE Left [...] CORONARY ANGIOPLASTY WITH STENT PLACEMENT Left 12/01/2021 REGIONAL MARKETING MANAGER/PCI to prox RCA CORONARY ANGIOPLASTY WITH STENT [...] lb 12.8 oz (139 kg) Height: 6' 2.5" (1.892 m) Body mass index is 38.86 [...] abnormalities. Last cardiac catheterization: 03/01/2023 Conclusion Impression: REGIONAL MARKETING MANAGER of mid RCA that was previously treated [...] added Assessment and Plan: 1. 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: with stable angina: Secondary to abdominal [...] at thistime. 4. PAF (paroxysmal atrial fibrillation) ([facility]) Continue amiodarone 200 mg daily. He will [...] follow-up in 2 months. documented in this [facility]11-16-2023 Instructions* Patient Instructions* DANIELLE Whitehead CNP - 04/08/2023 10:00 AM EST Reduce Ranexa to 500 mg twice a day. 2. Increase metoprolol to 50 mg in the am,( 2 tablets ) and 25 mg in the pm. Use SL NTG prior to exertional activities. Call with an update on abdominal cramping documented in this [facility]11-09-2023 Telephone encounter Note* Telephone Encounter - Renate Duke RN - 04/01/2023 4:26 PM EST Please review and refuse if appropriate. Med stopped at discharge in November [facility] [id number] History of Present illness Narrative* Chris Boyce MD - 03/29/2023 1:15 PM EST [facility] PULMONARY AND SLEEP MEDICINE ESTABLISHED PATIENT VISIT [...] first few nights after starting PAP therapy. [place] his sleep qualitywas much better. However, subsequently [...] left heart cath on 03/01/2023 which demonstrated REGIONAL MARKETING MANAGER of the RCA, 10 to 40% stenosis of the circumflex, 10% stenosis of LAD. He was started on Ranexa for his chest pain which was subsequently increased to 1000 twice daily. Continues on torsemide daily. [place] Sleepiness Scale Sitting and reading: Slight chance [...] infarction (HCC) COPD (chronic obstructive pulmonary disease) ([facility]) Depression WTATS (dyspnea on exertion) Fatigue GERD (gastroesophageal reflux disease) History of cardioversion 05/07/2016 Successful conversion of a-fib to SR History of left heart catheterization 05/07/2016 60% stenosis right posterior descending, patent stents in prox, mid & distal RCA, patent stentsin med LCx. Findings unchanged from previous study. 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 FPC current use of antiarrhythmic drug FPC current use of anticoagulant NSTEMI (non-ST elevated myocardial infarction) ([facility] ([facility]) 12/2012 NSTEMI (non-ST elevated myocardial infarction) ([facility]) ([facility]) 05/2014 Obesity Old [place] (myocardial infarction) HIPOLITO (obstructive sleep apnea) HIPOLITO on CPAP PAF (paroxysmal atrial fibrillation) ([facility]) Rheumatoid arthritis(714.0) ([facility]) ST segment elevation myocardial infarction (STEMI) of anterolateral wall, subsequent episode of care ([facility]) ([facility]) TIA (transient ischemic attack) Past Surgical History Past Surgical History: Procedure Laterality Date CAPSULOTOMY, HAND 05/07/2016 CARDIAC CATHETERIZATION N/A 03/01/2023 Performed by Zoie Gonzales MD at [facility] Cardiac Cath/EP Lab CARDIAC PROCEDURE Left [...] CORONARY ANGIOPLASTY WITH STENT PLACEMENT Left 12/01/2021 REGIONAL MARKETING MANAGER/PCI to prox RCA CORONARY ANGIOPLASTY WITH STENT [...] lb 6.4 oz (141 kg) Height: 6' 2.5" (1.892 m) Physical Exam Constitutional: General: He [...] Narrative Patient Name: SHANNON OLSON : 1955 [id number] Exam Date/Time: 12/07/2022 08:42 Procedure: XR CHEST [...] Functions Testing Results: No results found for: "FEV1", "FVC", "VTI6IMU", "TLC", "DLCO" No results found for: "FEV1", "FVC", "NOX1OJA", "TLC", "DLCO" documented in this [facility]11-06-2023 Instructions* Patient Instructions* Tennille Escalante MA - 03/29/2023 1:15 PM EST YOUR APPOINTMENT TODAY WAS WITH [facility] L[facility]G [facility]ODULE CL[facility], COPD CLINIC, PULMONARY AND SLEEP MEDICINE OFFICE. PLEASE CALL OUR OFFICE AT [phone] IF YOU HAVE NOT RECEIVED YOUR TEST [...] to make improvements. COVID-19 VACCINATION INFORMATION: PH. [phone] HEALTH.ORG/CORONAVIRUS/VACCINE [facility] Central Scheduling [phone] [facility] Sleep Scheduling [phone] documented in this [facility]10-26-2023 History of Present illness Narrative* France Spain APRN - EXTRACTOR AND WRINGER OPERATOR - 03/18/2023 11:00 AM EDT [facility] [address] [facility] [address] Dept: [phone] Dept Loc: [phone] Visit type: Established : 1955 Chief Complaint: [...] Past Medical History: Diagnosis Date Angina pectoris ([facility]) Anxiety Arrhythmia A-fib Asthma CAD (coronary artery disease) Cerebral artery occlusion with cerebral infarction ([facility]) COPD (chronic obstructive pulmonary disease) ([facility]) Depression WATTS (dyspnea on exertion) Fatigue GERD (gastroesophageal reflux disease) History of cardioversion 05/07/2016 Successful conversion of a-fib to SR History of left heart catheterization 05/07/2016 60% stenosis right posterior descending, patent stents in prox, mid & distal RCA, patent stentsin med LCx. Findings unchanged from previous study. 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 FPC current use of anticoagulant NSTEMI (non-ST elevated myocardial infarction) ([facility]) ([facility]) 12/2012 NSTEMI (non-ST elevated myocardial infarction) ([facility]) ([facility]) 05/2014 Obesity [place] (myocardial infarction) HIPOLITO (obstructive sleep apnea) HIPOLITO on CPAP PAF (paroxysmal atrial fibrillation) ([facility]) Rheumatoid arthritis(714.0) ([facility]) ST segment elevation myocardial infarction (STEMI) of anterolateral wall, subsequent episode of care ([facility]) ([facility]) TIA (transient ischemic attack) Past Surgical History Past Surgical History: Procedure Laterality Date CAPSULOTOMY, HAND 05/07/2016 CARDIAC CATHETERIZATION N/A 03/01/2023 Performed by Zoie Gonzales MD at [facility] Cardiac Cath/EP Lab CARDIAC PROCEDURE Left [...] CORONARY ANGIOPLASTY WITH STENT PLACEMENT Left 12/01/2021 REGIONAL MARKETING MANAGER/PCI to prox RCA CORONARY ANGIOPLASTY WITH STENT [...] lb 3.2 oz (139 kg) Height: 6' 2.5" (1.892 m) Body mass index is 38.91 [...] abnormalities. Last cardiac catheterization: 03/01/2023 Conclusion Impression: REGIONAL MARKETING MANAGER of mid RCA that was previously treated [...] added Assessment and Plan: 1. 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 Status post left heart cath on March 01, 2023. This demonstrated occlusion of his right coronary artery that was previously stented. He had now developed left to right collateral circulation. [id number] mg twice a day was added. This [...] panel 3. Chronic diastolic heart failure (HCC) \\Today he is euvolemic. He will continue his [...] in approximately 2 weeks. documented in [facility]10-26-2023 Instructions* Patient Instructions* DANIELLE Whitehead CNP - 03/18/2023 11:00 AM EDT Resume Amiodarone 200 mg daily Increase ranexa to 1000 mg twice day Call me with the date of the upper GI. documented in this [facility]10-09-2023 Hospital Discharge instructions* Discharge Instructions* Amelia Gilbert RN - 03/01/2023 10:32 AM EDT Call your doctor with any medication questions or if you notice any side effects from your medications. If you are unable to fill your medications, please call your Drilling Field Specialist immediately. The office number is located with [...] be gone by tomorrow. documented in this [facility]10-09-2023 Note* Pre-Sedation Documentation - Gabino Louie DO [...] and proceed to administer sedation as planned. [facility] [employer] Phone: 1(960) 201-895110-09-2023 Note* Pre-Sedation Documentation - Gabino Louie DO [...] and proceed to administer sedation as planned. [facility] Work Phone: 1(883) 888-218410-09-2023 Miscellaneous Notes* Pre-Sedation Documentation - Gabino DO Jacy - 03/01/2023 7:41 AM EDT Sedation Plan [...] administer sedation as planned. documented in this [facility]10-02-2023 History of Present illness Narrative* Zoie Gonzales MD - 02/22/2023 1:30 PM EDT [facility] [address] [facility] [address] Dept: [phone] Dept Visit type: Established : 1955 Chief [...] Past Medical History: Diagnosis Date Angina pectoris ([facility]) Anxiety Arrhythmia A-fib Asthma CAD (coronary artery disease) Cerebral artery occlusion with cerebral infarction ([facility]) COPD (chronic obstructive pulmonary disease) ([facility]) Depression WATTS (dyspnea on exertion) Fatigue GERD (gastroesophageal reflux disease) History of cardioversion 05/07/2016 Successful conversion of a-fib to SR History of left heart catheterization 05/07/2016 60% stenosis right posterior descending, patent stents in prox, mid & distal RCA, patent stentsin med LCx. Findings unchanged from previous study. 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 NSTEMI (non-ST elevated myocardial infarction) ([facility]) ([facility]) 12/2012 NSTEMI (non-ST elevated myocardial infarction) ([facility]) ([facility]) 05/2014 Obesity [place] (myocardial infarction) HIPOLITO (obstructive sleep apnea) HIPOLITO on CPAP PAF (paroxysmal atrial fibrillation) ([facility]) Rheumatoid arthritis(714.0) ([facility]) ST segment elevation myocardial infarction (STEMI) of anterolateral wall, subsequent episode of care ([facility]) ([facility]) TIA (transient ischemic attack) Past Surgical History [...] CORONARY ANGIOPLASTY WITH STENT PLACEMENT Left 12/01/2021 REGIONAL MARKETING MANAGER/PCI to prox RCA CORONARY ANGIOPLASTY WITH STENT [...] If no relief after 3 tablets, call --1 immediately., Disp: 25 tablet, Rfl: 3 pantoprazole [...] lb 3.2 oz (140 kg) Height: 6' 2" (1.88 m) Body mass index is 39.57 [...] and Plan: 1. Atherosclerotic heart disease of pauma coronary artery with other forms of angina pectoris ([facility]) 2. NSTEMI (non-ST elevated myocardial infarction) ([facility]) ([facility]) 3. Hypertension, unspecified type 4. PAF (paroxysmal atrial fibrillation) ([facility]) My summary and recommendation today is to [...] with an outpatient cath. documented in this [facility]09-20-2023 Telephone encounter Note* Telephone Encounter - Renate Duke RN - 02/10/2023 12:20 PM EDT PC to pharmacy. New Rx was sent in yesterday for patient to take two 60 mg tablets daily but quantity sent was only 90. Ok to dispense 180 tablets [facility] [id number] Miscellaneous Notes* Telephone Encounter - Renate Duke RN - 02/10/2023 12:20 PM EDT PC to pharmacy. New Rx was sent in yesterday for patient to take two 60 mg tablets daily but quantity sent was only 90. Ok to dispense 180 tablets * Telephone Encounter - Tatum Alvarado - 02/10/2023 11:29 AM EDT [facility] pharmacy requesting clarification on Imdur [phone] * Telephone Encounter - Renate Duke RN [...] call in please advise documented in this encounterSFirelands Regional Medical Center South CampusOoxusw47-11-4462 Telephone encounter Note* Telephone Encounter - Tatum Alvarado - 02/10/2023 11:29 AM EDT [facility] pharmacy requesting clarification on Imdur [phone] [facility] [id number] Telephone encounter Note* Telephone Encounter - Renate Duke RN - 02/09/2023 4:59 PM EDT PC to patient with medication recommendations. He verbalized understanding [facility] [id number] Telephone encounter Note* Telephone Encounter - DANIELLE Oscar CNP - 02/09/2023 4:21 PM EDT Thanks for the update. Have him increase Imdur to 120 mg once daily and see if any improvement. Monitor blood pressure and let us know if too low. [facility] [id number] Telephone encounter Note* Telephone Encounter - Jenniffer Carrasquillo - 02/09/2023 2:03 PM EDT Patient stated he has not noticed much of a difference being on the protonix not sure if just not been on it long enough and just wanted to give a call in please advise [facility] [id number] History of Present illness Narrative* DANIELLE Oscar CNP - 02/02/2023 8:30 AM EDT Images from the original note were not included. [facility] Cardiovascular Medicine [facility] [address] [facility] [address] Dept: [phone] Dept Loc: [phone] DATE of SERVICE: 02/02/2023 DATE of : [...] overload at this juncture 2. 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 New LBBB on ECG with symptoms [...] (CMS/HCC) (HCC) In SR on Amiodarone 4. 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 L-R collaterals noted and [...] Past Medical History: Diagnosis Date Angina pectoris ([facility]) Anxiety Arrhythmia A-fib Asthma CAD (coronary artery disease) Cerebral artery occlusion with cerebral infarction ([facility]) COPD (chronic obstructive pulmonary disease) ([facility]) Depression WATTS (dyspnea on exertion) Fatigue GERD (gastroesophageal reflux disease) History of cardioversion 05/07/2016 Successful conversion of a-fib to SR History of left heart catheterization 05/07/2016 60% stenosis right posterior descending, patent stents in prox, mid & distal RCA, patent stentsin med LCx. Findings unchanged from previous study. 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 NSTEMI (non-ST elevated myocardial infarction) ([facility]) ([facility]) 12/2012 NSTEMI (non-ST elevated myocardial infarction) ([facility]) ([facility]) 05/2014 Obesity Old [place] (myocardial infarction) HIPOLITO (obstructive sleep apnea) HIPOLITO on CPAP PAF (paroxysmal atrial fibrillation) ([facility]) ([facility]) Rheumatoid arthritis(714.0) ([facility]) ST segment elevation myocardial infarction (STEMI) of anterolateral wall, subsequent episode of care ([facility]) ([facility]) TIA (transient ischemic attack) Past Surgical History [...] CORONARY ANGIOPLASTY WITH STENT PLACEMENT Left 12/01/2021 REGIONAL MARKETING MANAGER/PCI to prox RCA CORONARY ANGIOPLASTY WITH STENT [...] (!) 301 lb (137 kg) Height: 6' 2" (1.88 m) Body mass index is 38.65 [...] QT Interval 385 QTC Interval 445 P [place] 35 QRS [place] 25 T Wave [place] 19 DC Interval 174 Impression Sinus rhythm Inferior infarct, [...] The lesion presents an ACC/AHA type A/B "low/moderate risk" lesion for intervention. Angioplasty was performed, resulting in no improvement in angiographic appearance (see 1st lesion). Following intervention, there is a residual 100% stenosis with JORDAN grade 0 flow (no flow). Mid-vessel lesion: Angioplasty was performed. 5. Elevated left heart filling pressure. 6. Unsuccessful attempt to revascularise the mid RCA instent restenosis REGIONAL MARKETING MANAGER. IMPRESSIONS: 1. Patent stent in proximal LAD. 2. Patent stent in proximal-mid LCx. 3. Mid RCA instent restenosis with REGIONAL MARKETING MANAGER and left to right collaterals. 4. Unsuccessful attempt to revascularize mid RCA instent restenosis REGIONAL MARKETING MANAGER. Guidewire was passed across the occlusion and [...] access care. 5. Follow up with primary line producer as outpatient in one week. Kate Pelaez, MSN, EXTRACTOR AND WRINGER OPERATOR-, [facility] Cardiology-[address] [address] p [phone] f [phone] [email or web address] documented in this encounterSFirelands Regional Medical Center South CampusTgiesm86-66-2255 Telephone encounter Note* Telephone Encounter - Tatmu Alvarado - 01/29/2023 1:49 PM EDT Patient scheduled Danisha Tues 8 :30 am [facility] [id number] Miscellaneous Notes* Telephone Encounter - Tatum Alvarado [...] 9:39 AM EDT Lab order faxed to [facility] [phone]. * Telephone Encounter - DANIELLE Whitehead CNP [...] accident. Will start with Stat CBC and [facility] tomorrow. Will call once results are back. * Telephone Encounter - Renate Duke RN - 01/26/2023 3:13 PM EDT PC to patient. He states he "messed up his leg" after NALDO appointment here and was on [...] review for recommendations * Telephone Encounter - Trnea Pratt - 01/26/2023 1:45 PM EDT Patient has not been feeling quit right lately since he's had to start on strong antibiotics. He isfeeling fatigued and light chest discomfort with little exertion. documented in this [facility]09-08-2023 Telephone encounter Note* Telephone Encounter - DANIELLE [...] is not fast. Last weight was 292lbs. [facility] [id number] Telephone encounter Note* Telephone Encounter - Trena Pratt - 01/29/2023 10:58 AM EDT Labs received,place on desk and gave to MA to enter. [facility] [id number] Telephone encounter Note* Telephone Encounter - DANIELLE Whitehead CNP - 01/28/2023 5:41 PM EDT PC to patient, still do not have lab results, He feels the same, and is doing ok , if he does not push himself. I will have office call again tomorrow, and page me with the results. [facility] HospitalDwqcth54-18-9189 Telephone encounter Note* Telephone Encounter - Renate Duke RN - 01/27/2023 2:53 PM EDT ISACC with you 12/24/22 [place] [id number] Miscellaneous Notes* Telephone Encounter - Renate Duke RN - 01/27/2023 2:53 PM EDT ISACC with you 12/24/22 documented in this encounterSFirelands Regional Medical Center South CampusXndxwv93-69-5726 Telephone encounter Note* Telephone Encounter - Trena Pratt - 01/27/2023 9:39 AM EDT Lab order faxed to [facility] [phone]. [facility] [id number] Telephone encounter Note* Telephone Encounter - DANIELLE [...] accident. Will start with Stat CBC and [facility] tomorrow. Will call once results are back. [facility] [id number] Telephone encounter Note* Telephone Encounter - Renate Duke RN - 01/26/2023 3:13 PM EDT PC to patient. He states he "messed up his leg" after NALDO appointment here and was on [...] morning. Will have NALDO review for recommendations [facility] [id number] Telephone encounter Note* Telephone Encounter - Trena Pratt - 01/26/2023 1:45 PM EDT Patient has not been feeling quit right lately since he's had to start on strong antibiotics. He isfeeling fatigued and light chest discomfort with little exertion. [facility] [id number] Telephone encounter Note* Telephone Encounter - DANIELLE Whitehead CNP - 01/05/2023 12:46 PM EDT Thanks for the update, probably best to avoid further complications. [place] [id number] Miscellaneous Notes* Telephone Encounter - DANIELLE Whitehead CNP - 01/05/2023 12:46 PM EDT Thanks for the update, probably best to avoid further complications. * Telephone Encounter - Renate Duke RN - 01/04/2023 4:25 PM EDT PC to patient. He went to [facility] Wednesday and was given antibiotics for [...] with PCP on Wednesday. documented in this encounterSFirelands Regional Medical Center South CampusUteiwm53-89-4300 Telephone encounter Note* Telephone Encounter - Renate Duke RN - 01/04/2023 4:25 PM EDT PC to patient. He went to [facility] Wednesday and was given antibiotics for this. He saw the doctor today and it was decided to make a small incicion to drain it. Patient states numerous blood clots were removed. He did not have stop the Eliquis. Will update provider [place] [id number] Telephone encounter Note* Telephone Encounter - Trena Pratt - 01/04/2023 3:00 PM EDT Patient called stating he had surgery to remove blood clots. He wanted to update Dr. Bui. [place] [id number] Telephone encounter Note* Telephone Encounter - DANIELLE [...] He will follow-up with PCP on Wednesday. [facility] [id number] Hospital Discharge instructions Additional Instructions Please wear your Efrain wrap along your right harrison to compress the hematoma and prevent further swelling. Continue to ice the area for the next 3 to 4 days and then change to warm compresses to help dissolve any remaining blood. If you have any further concerns please return for repeat evaluationWSouthern [facility] Medical Center Work Phone: [phone]) 352-883907-18-2023 Nurse Note* Nakita Zaragoza RN - 12/08/2022 4:28 PM EDT Education provided to patient on discharge instructions, how to followup, lab work that needs to becompleted, and new medications. Medication list reviewed with patient. IV removed from patient. All questions and concerns answered at this time. Patient states he will have a ride around 5pm [facility] [id number] Nurse Note* Nakita Zaragoza RN - 12/08/2022 4:28 PM EDT Education provided to patient on discharge instructions, how to followup, lab work that needs to becompleted, and new medications. Medication list reviewed with patient. IV removed from patient. All questions and concerns answered at this time. Patient states he will have a ride around 5pm documented in this encounterSFirelands Regional Medical Center South CampusRyiaki83-20-0264 History of Present illness Narrative* Javier Benton MD - 12/08/2022 2:41 PM EDT [facility] Progress Note Subjective: 67 [...] follow the patient along. Javier Benton MD [facility] Office: [phone] * DANIELLE Whitehead CNP - 12/08/2022 12:10 PM EDT Per [...] included. Hospitalist Progress Note 12/08/2022 9:09 AM [phone]: Please page me for patient care issues. [phone]: Please page [facility] night Hospitalist for any issues. Subjective: [...] Past Medical History: Diagnosis Date Angina pectoris ([facility]) Anxiety Arrhythmia A-fib Asthma CAD (coronary artery disease) Cerebral artery occlusion with cerebral infarction ([facility]) COPD (chronic obstructive pulmonary disease) ([facility]) Depression WATTS (dyspnea on exertion) Fatigue GERD (gastroesophageal reflux disease) History of cardioversion 05/07/2016 Successful conversion of a-fib to SR History of left heart catheterization 05/07/2016 60% stenosis right posterior descending, patent stents in prox, mid & distal RCA, patent stentsin med LCx. Findings unchanged from previous study. 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 NSTEMI (non-ST elevated myocardial infarction) ([facility]) ([facility]) 12/2012 NSTEMI (non-ST elevated myocardial infarction) ([facility]) ([facility]) 05/2014 Obesity Old SC (myocardial infarction) HIPOLITO (obstructive sleep apnea) HIPOLITO on CPAP PAF (paroxysmal atrial fibrillation) ([facility]) ([facility]) Rheumatoid arthritis(714.0) ([facility]) ST segment elevation myocardial infarction (STEMI) of anterolateral wall, subsequent episode of care ([facility]) ([facility]) TIA (transient ischemic attack) Adult diet Regular; No Added Salt (3-4 gm) @[id number]@ Medications: amiodarone, 200 mg, Oral, Daily apixaban, [...] 7 8 LIVER PROFILE: Recent Labs 12/07/22 001 AST 30 ALT 39 BILITOT 1.2 ALKPHOS [...] team DC home today. Patients family- Reynold [phone]- was informed about all work up and [...] was made to ensureaccuracy; however, inadvertent computerized brim buster errors may be present. Manuel Edgar MD Division of Hospitalist Medicine Acute Care [facility] PAGER: Epic chat * Alayna Arthur - 12/08/2022 7:52 AM EDT .Nutrition rescreen completed. Chart reviewed. Patient to be monitored and followed by the diet diesel service technician. TAZ Murguia * Patricia Latif APRN - EXTRACTOR AND WRINGER OPERATOR - 12/07/2022 10:10 AM EDT [facility] Cardiology /Electrophysiology Progress Note Reason for consult: Chest pain HPI / Interval History: Shannon Olson is a 67 y[address] known to Dr. Zoie Gonzales with hx of complex CAD and prior stenting ofthe LAD, Lcx, and RCA. His last LHC was 12/01/21 and at that time was noted to have midRCA instent restenosis with REGIONAL MARKETING MANAGER and L->R collaterals and had unsuccessful attempt [...] down from 1.53). He was transferred from [facility] here 12/06/22 for chest pain. There, [...] He states that whenhe initially presented to [facility] that he had intense chest tightness [...] setting of known complex CAD with RCA REGIONAL MARKETING MANAGER and multiple prior PCI: Stable, no angina now. EKG reviewed from today and unchanged from previous. No ischemic changes. Troponin I here negative x2. However, Hs Troponins at [facility] [place] were elevated but insignificant (reviewed with Dr. [...] The lesion presents an ACC/AHA type A/B "low/moderate risk" lesion for intervention. Angioplasty was performed, resulting in no improvement in angiographic appearance (see 1st lesion). Following intervention, there is a residual 100% stenosis with JORDAN grade 0 flow (no flow). Mid-vessel lesion: Angioplasty was performed. 5. Elevated left heart filling pressure. 6. Unsuccessful attempt to revascularise the mid RCA instent restenosis REGIONAL MARKETING MANAGER. IMPRESSIONS: 1. Patent stent in proximal LAD. 2. Patent stent in proximal-mid LCx. 3. Mid RCA instent restenosis with REGIONAL MARKETING MANAGER and left to right collaterals. 4. Unsuccessful attempt to revascularize mid RCA instent restenosis REGIONAL MARKETING MANAGER. Guidewire was passed across the occlusion and [...] access care. 5. Follow up with primary line producer as outpatient in one week. Telemetry findings reviewed: NSR with occasional PVCs DANIELLE Quinn CNP Date Of Service 12/07/2022 * Manuel Edgar MD - 12/07/2022 8:21 AM EDT Images from the original note were not included. Hospitalist Progress Note 12/07/2022 8:21 AM [phone]: Please page me for patient care issues. [phone]: Please page [facility] night Hospitalist for any issues. Subjective: Admit Date: 12/06/2022 PCP: Finn Ferrell MD Room#: 1C-131/131 A Interval History: Patient seen and examined [...] IIIwith baseline creatinine of 1.5 Presented to [facility] following chest pain. Patient was complaining of [...] hemoglobin 11.9 High sensitive troponin done at [facility] was 175 Past medical history : Past Medical History: Diagnosis Date Angina pectoris ([facility]) Anxiety Arrhythmia A-fib Asthma CAD (coronary artery disease) Cerebral artery occlusion with cerebral infarction ([facility]) COPD (chronic obstructive pulmonary disease) ([facility]) Depression WATTS (dyspnea on exertion) Fatigue GERD (gastroesophageal reflux disease) History of cardioversion 05/07/2016 Successful conversion of a-fib to SR History of left heart catheterization 05/07/2016 60% stenosis right posterior descending, patent stents in prox, mid & distal RCA, patent stentsin med LCx. Findings unchanged from previous study. 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 FPC current use of anticoagulant NSTEMI (non-ST elevated myocardial infarction) ([facility]) ([facility]) 12/2012 NSTEMI (non-ST elevated myocardial infarction) ([facility]) ([facility]) 05/2014 Obesity Old SC (myocardial infarction) HIPOLITO (obstructive sleep apnea) HIPOLITO on CPAP PAF (paroxysmal atrial fibrillation) ([facility]) ([facility]) Rheumatoid arthritis(714.0) ([facility]) ST segment elevation myocardial infarction (STEMI) of anterolateral wall, subsequent episode of care ([facility]) ([facility]) TIA (transient ischemic attack) Adult diet Regular; No Added Salt (3-4 gm) @[id number]@ Medications: amiodarone, 200 mg, Oral, Daily amLODIPine, [...] Extended Emergency Contact Information Primary Emergency Contact: WesleyHarvinder Relation: Relative Secondary Emergency Contact: WesleyReynold Mobile Relation: Brother Advance Directive: Full Code Discharge planning: NOTE: This report was transcribed using voice recognition software. Every effort was made to ensureaccuracy; however, inadvertent computerized brim buster errors may be present. Manuel Edgar MD Division of Hospitalist Medicine [facility] PAGER: Epic chat Addendum Message from cardiology nurse practitioner-Dr. Gonzales wanted to continue patient on Aldactone/torsemide Plan Nephrology team following BMP panel in a.m. documented in this [facility]07-18-2023 Hospital course Narrative* Manuel Edgar MD - [...] IIIwith baseline creatinine of 1.5 Presented to [facility] following chest pain.Patient was complaining of dry cough for last 3 days, and 1 episode of fever spike during hospitalization stay. Work-up during this admission showedpotassium of 4.8, LFT panel normal, creatinine of 2.1, hemoglobin of 11.9, high sensitive troponin done at [facility] was 175, patient was transferred to [facility] for further evaluation. Repeat EKG showed [...] Complexity: follow up within 7-14 calendar days (96762) [] Severe Complexity: follow up within 7 calendar days (83139) FOLLOW UP TESTING, PENDING RESULTS OR REFERRALS AT TRANSITIONAL CARE VISIT: [] Yes [] No PENDING STUDIES: DISPOSITION: Home FACILITY/HOME CARE AGENCY NAME: Follow up with Finn Ferrell MD [address] [facility] [address] [facility] [id number] Schedule an appointment as soon as possible for a visit on 12/11/2022 CBC, BMP panel on 12/11/2022 and 12/14/2022. Zoie Gonzales MD [address] [facility] [phone] Schedule an appointment as soon as possible for a visit in 2 week(s) Javier Benton MD [address] [facility] [address] [facility] [address] Schedule an appointment as soon as possible for a visit in 1 week(s) Chris Boyce MD [address] [facility] [address] [facility] [address] Follow up on 02/24/2023 INSTRUCTIONS TO MA/SW: [...] MD 12/08/2022, 9:35 AM documented in this [facility]07-17-2023 Note* Care Coordination - Lore Florian RN - 12/07/2022 11:11 AM EDT Care Managment Initial Assessment Date: 12/07/2022 Patient Name: Shannon Olson : 1955 Patient Information Source of Information: Patient Cognition/Language: WFL - Within Functional Limits Permission given to speak with patient consumer sales representative/caregiver as indicated: Yes Confirmation of Payer [...] Daily Living Prescription Coverage: Yes Pharmacy Used: [facility] Medication Management: Independent Transportation/Shopping: Independent Transportation [...] time. TCC to follow. Lore Florian RN [facility] [id number] Note* Care Coordination - Lore Florian RN - 12/07/2022 11:11 AM EDT Care Managment Initial Assessment Date: 12/07/2022 Patient Name: Shannon Olson : 1955 Patient Information Source of Information: Patient Cognition/Language: WFL - Within Functional Limits Permission given to speak with patient consumer sales representative/caregiver as indicated: Yes Confirmation of Payer [...] Yes Pharmacy [facility] Medication Management: Independent Transportation/Shopping: Independent Transportation [...] time. TCC to follow. Lore Florian RN [facility] [id number] Miscellaneous Notes* Care Coordination - Lore Holly RN - 12/07/2022 11:11 AM EDT Care Managment Initial Assessment Date: 12/07/2022 Patient Name: Shannon Olson : 1955 Patient Information Source of Information: Patient Cognition/Language: WFL - Within Functional Limits Permission given to speak with patient consumer sales representative/caregiver as indicated: Yes Confirmation of Payer with patient/family: Yes Payer Name: medicare [place]: No Confirmation of Primary Care Physician: Confirmed [...] Yes Pharmacy Used: [facility] Medication Management: Independent Transportation/Shopping: Independent Transportation [...] Thank you Javier Benton documented in this [facility]07-17-2023 Consult note* Javier Benton MD - 12/07/2022 10:52 AM EDTAssociated Order(s): IP CONSULT TO NEPHROLOGY [facility] Consult Note Reason for [...] worsening chest pain was seen at the [facility] [place] ED found to have elevated troponins now transferred to [facility]. Currently patient has no chest pain. [...] Past Medical History: Diagnosis Date Angina pectoris ([facility]) Anxiety Arrhythmia A-fib Asthma CAD (coronary artery disease) Cerebral artery occlusion with cerebral infarction ([facility]) COPD (chronic obstructive pulmonary disease) ([facility]) Depression WATTS (dyspnea on exertion) Fatigue GERD (gastroesophageal reflux disease) History of cardioversion 05/07/2016 Successful conversion of a-fib to SR History of left heart catheterization 05/07/2016 60% stenosis right posterior descending, patent stents in prox, mid & distal RCA, patent stentsin med LCx. Findings unchanged from previous study. 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 FPC current use of anticoagulant NSTEMI (non-ST elevated myocardial infarction) ([facility]) ([facility]) 12/2012 NSTEMI (non-ST elevated myocardial infarction) ([facility]) ([facility]) 05/2014 Obesity Old SC (myocardial infarction) HIPOLITO (obstructive sleep apnea) HIPOLITO on CPAP PAF (paroxysmal atrial fibrillation) ([facility]) ([facility]) Rheumatoid arthritis(714.0) ([facility]) ST segment elevation myocardial infarction (STEMI) of anterolateral wall, subsequent episode of care ([facility]) ([facility]) TIA (transient ischemic attack) Past Surgical History: [...] CORONARY ANGIOPLASTY WITH STENT PLACEMENT Left 12/01/2021 REGIONAL MARKETING MANAGER/PCI to prox RCA CORONARY ANGIOPLASTY WITH STENT [...] will follow closely with you Javier Benton [facility] T [facility] [id number] Consult note* Javier Benton MD - 12/07/2022 10:52 AM EDTAssociated Order(s): IP CONSULT TO NEPHROLOGY [facility] Consult Note Reason for [...] worsening chest pain was seen at the [place] ED found to have elevated troponins now transferred to [facility]. Currently patient has no chest pain. [...] Past Medical History: Diagnosis Date Angina pectoris ([facility]) Anxiety Arrhythmia A-fib Asthma CAD (coronary artery disease) Cerebral artery occlusion with cerebral infarction ([facility]) COPD (chronic obstructive pulmonary disease) ([facility]) Depression WATTS (dyspnea on exertion) Fatigue GERD (gastroesophageal reflux disease) History of cardioversion 05/07/2016 Successful conversion of a-fib to SR History of left heart catheterization 05/07/2016 60% stenosis right posterior descending, patent stents in prox, mid & distal RCA, patent stentsin med LCx. Findings unchanged from previous study. 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 FPC current use of antiarrhythmic drug FPC current use of anticoagulant NSTEMI (non-ST elevated myocardial infarction) ([facility]) ([facility]) 12/2012 NSTEMI (non-ST elevated myocardial infarction) ([facility]) ([facility]) 05/2014 Obesity Old SC (myocardial infarction) HIPOLITO (obstructive sleep apnea) HIPOLITO on CPAP PAF (paroxysmal atrial fibrillation) ([facility]) ([facility]) Rheumatoid arthritis(714.0) ([facility]) ST segment elevation myocardial infarction (STEMI) of anterolateral wall, subsequent episode of care ([facility]) ([facility]) TIA (transient ischemic attack) Past Surgical History: [...] CORONARY ANGIOPLASTY WITH STENT PLACEMENT Left 12/01/2021 REGIONAL MARKETING MANAGER/PCI to prox RCA CORONARY ANGIOPLASTY WITH STENT [...] mood. Data: LIVER PROFILE: Recent Labs 12/07/22 001 AST 30 ALT 39 BILITOT 1.2 ALKPHOS [...] PO2, HCO3, O2SAT Nephro Labs: Recent Labs 12/07/22904 COLORU Light Yellow CLARITYU Clear GLUCOSEU Normal [...] will follow closely with you Javier Benton [facility] * Satish Rascon MD - 12/06/2022 12:49 PM EDTAssociated Order(s): IP CONSULT TO CARDIOLOGY [facility] Cardiology/ Electrophysiology Consult Note Reason for Consult/Chief Complaint: Chest pain History of Present Illness: Shannon Olson is a 67 y.o. male with known complex coronary artery disease presents with an episodeof rest pain. He just saw in office his supervisor estimator and drafter Dr. Gonzales 12/03/2022. Patient has history of [...] not improve with nitroglycerin. He presented to [facility]. While there high-sensitivity troponin was at 174 then 175 with the upper limit of normal being 80. He was then sent to [facility] for further evaluation. Presently he is pain-free. He denies any recent fevers and chills. His weight has been stable. He is in process of treating his sleep apnea. He is compliant with his medical therapy. Past Medical History: Past Medical History: Diagnosis Date Angina pectoris ([facility]) Anxiety Arrhythmia A-fib Asthma CAD (coronary artery disease) Cerebral artery occlusion with cerebral infarction ([facility]) COPD (chronic obstructive pulmonary disease) ([facility]) Depression WATTS (dyspnea on exertion) Fatigue GERD (gastroesophageal reflux disease) History of cardioversion 05/07/2016 Successful conversion of a-fib to SR History of left heart catheterization 05/07/2016 60% stenosis right posterior descending, patent stents in prox, mid & distal RCA, patent stentsin med LCx. Findings unchanged from previous study. 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 NSTEMI (non-ST elevated myocardial infarction) ([facility]) ([facility]) 12/2012 NSTEMI (non-ST elevated myocardial infarction) ([facility]) ([facility]) 05/2014 Obesity Old SC (myocardial infarction) HIPOLITO (obstructive sleep apnea) HIPOLITO on CPAP PAF (paroxysmal atrial fibrillation) ([facility]) ([facility]) Rheumatoid arthritis(714.0) ([facility]) ST segment elevation myocardial infarction (STEMI) of anterolateral wall, subsequent episode of care ([facility]/HCC) (HCC) TIA (transient ischemic attack) Past Surgical History: [...] CORONARY ANGIOPLASTY WITH STENT PLACEMENT Left 12/01/2021 REGIONAL MARKETING MANAGER/PCI to prox RCA CORONARY ANGIOPLASTY WITH STENT [...] resp. rate 18, SpO2 97 %. @IODETAILS@ @[id number]@ Physical Exam Laboratory Tests: @[id number](WBC:5,HGB:5,HCT:5,MCV:5,PLT:5)@ Lab Results Component Value Date GLUCOSE 82 [...] continue antianginals. He will naturally continue his beta-vjyfown05 mg twice daily. Further recs dependent upon [...] DATE of SERVICE: 12/06/2022 documented in this [facility]07-17-2023 History of Present illness Narrative* Chris Boyce MD - 12/07/2022 10:39 AM EDT Images from the original note were not included. [facility] PULMONARY AND SLEEP MEDICINE ESTABLISHED PATIENT VISIT [...] patient stated thatthey are currently in the state [facility]. If the patient is a minor, permission [...] 16, EPAP 10 cm H2O sent [facility] Patient counseled on importance of adherence to [...] management advised HTN (hypertension) Hyperlipidemia Hypertension Hypokalemia FPC current use of antiarrhythmic drug FPC current use of anticoagulant NSTEMI (non-ST elevated myocardial infarction) ([facility] ([facility]) 12/2012 NSTEMI (non-ST elevated myocardial infarction) ([facility]) ([facility]) 05/2014 Obesity Old SC (myocardial infarction) HIPOLITO (obstructive sleep apnea) HIPOLITO on CPAP PAF (paroxysmal atrial fibrillation) ([facility]) ([facility]) Rheumatoid arthritis(714.0) ([facility]) ST segment elevation myocardial infarction (STEMI) of anterolateral wall, subsequent episode of care ([facility]) ([facility]) TIA (transient ischemic attack) Past Surgical History [...] CORONARY ANGIOPLASTY WITH STENT PLACEMENT Left 12/01/2021 REGIONAL MARKETING MANAGER/PCI to prox RCA CORONARY ANGIOPLASTY WITH STENT [...] Daily, Terry Drew MD, 200 mg at 12/07/22901 amLODIPine [...] findings summarized in A/P. documented in this [facility]07-17-2023 Plan of care note* Care Plan - Javier Benton MD - 12/07/2022 8:43 AM EDT Consult noted. Full note to follow. Thank you Javier Benton [id number] Discharge instructions* Discharge Instr - Activity* Manuel Edgar MD - 12/07/2022 8:08 AM EDT As tolerated * Discharge Instr - Diet* Manuel Edgar MD - 12/07/2022 8:08 AM EDT Cardiac diet documented in this [facility]07-16-2023 Consult note* Satish Rascon MD - 12/06/2022 12:49 PM EDTAssociated Order(s): IP CONSULT TO CARDIOLOGY [facility]/ Electrophysiology Consult Note Reason for Consult/Chief Complaint: Chest pain History of Present Illness: Shannon Olson is a 67 y.o. male with known complex coronary artery disease presents with an episodeof rest pain. He just saw in office his supervisor estimator and drafter Dr. Gonzales 12/03/2022. Patient has history of [...] not improve with nitroglycerin. He presented to [facility]. While there high-sensitivity troponin was at 174 then 175 with the upper limit of normal being 80. He was then sent to [facility] for further evaluation. Presently he is pain-free. He denies any recent fevers and chills. His weight has been stable. He is in process of treating his sleep apnea. He is compliant with his medical therapy. Past Medical History: Past Medical History: Diagnosis Date Angina pectoris ([facility]) Anxiety Arrhythmia A-fib Asthma CAD (coronary artery disease) Cerebral artery occlusion with cerebral infarction ([facility]) COPD (chronic obstructive pulmonary disease) ([facility]) Depression WATTS (dyspnea on exertion) Fatigue GERD (gastroesophageal reflux disease) History of cardioversion 05/07/2016 Successful conversion of a-fib to SR History of left heart catheterization 05/07/2016 60% stenosis right posterior descending, patent stents in prox, mid & distal RCA, patent stentsin med LCx. Findings unchanged from previous study. 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 FPC current use of antiarrhythmic drug FPC current use of anticoagulant NSTEMI (non-ST elevated myocardial infarction) ([facility] ([facility]) 12/2012 NSTEMI (non-ST elevated myocardial infarction) ([facility]) ([facility]) 05/2014 Obesity Old SC (myocardial infarction) HIPOLITO (obstructive sleep apnea) HIPOLITO on CPAP PAF (paroxysmal atrial fibrillation) ([facility]) ([facility]) Rheumatoid arthritis(714.0) ([facility]) ST segment elevation myocardial infarction (STEMI) of anterolateral wall, subsequent episode of care ([facility]) ([facility]) TIA (transient ischemic attack) Past Surgical History: [...] CORONARY ANGIOPLASTY WITH STENT PLACEMENT Left 12/01/2021 REGIONAL MARKETING MANAGER/PCI to prox RCA CORONARY ANGIOPLASTY WITH STENT [...] resp. rate 18, SpO2 97 %. @IODETAILS@ @[id number]@ Physical Exam Laboratory Tests: @[id number](WBC:5,HGB:5,HCT:5,MCV:5,PLT:5)@ Lab Results Component Value Date GLUCOSE 82 [...] continue antianginals. He will naturally continue his beta-lkixswh32 mg twice daily. Further recs dependent upon [...] Satish Rascon MD DATE of SERVICE: 12/06/2022 [employer] Work Phone: [phone] 394-543507-16-2023 History and physical note* Terry Drew MD [...] worsening chest pain was seen at the [place] ED found to have elevated troponins now transferred to [facility]. Currently patient has no chest pain. Past Medical History: Past Medical History: Diagnosis Date Angina pectoris ([facility]) Anxiety Arrhythmia A-fib Asthma CAD (coronary artery disease) Cerebral artery occlusion with cerebral infarction ([facility]) COPD (chronic obstructive pulmonary disease) ([facility]) Depression WATTS (dyspnea on exertion) Fatigue GERD (gastroesophageal reflux disease) History of cardioversion 05/07/2016 Successful conversion of a-fib to SR History of left heart catheterization 05/07/2016 60% stenosis right posterior descending, patent stents in prox, mid & distal RCA, patent stentsin med LCx. Findings unchanged from previous study. 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 NSTEMI (non-ST elevated myocardial infarction) ([facility] ([facility]) 12/2012 NSTEMI (non-ST elevated myocardial infarction) ([facility]/HCC) ([facility]) 05/2014 Obesity Old SC (myocardial infarction) HIPOLITO (obstructive sleep apnea) HIPOLITO on CPAP PAF (paroxysmal atrial fibrillation) ([facility] ([facility]) Rheumatoid arthritis(714.0) ([facility]) ST segment elevation myocardial infarction (STEMI) of anterolateral wall, subsequent episode of care ([facility]) ([facility]) TIA (transient ischemic attack) Past Surgical History: [...] CORONARY ANGIOPLASTY WITH STENT PLACEMENT Left 12/01/2021 REGIONAL MARKETING MANAGER/PCI to prox RCA CORONARY ANGIOPLASTY WITH STENT [...] Status post left heart catheterization 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 Class 2 obesity in adult COPD (chronic obstructive pulmonary disease) ([facility]) HIPOLITO on CPAP CAD (coronary artery disease) PAF (paroxysmal atrial fibrillation) ([facility]) ([facility]) CKD NSTEMI patient with known coronary artery [...] patient's PCP. Thank you. Electronically signed by @MEMDNR@ on @TDNR@ at @NOWNR@ [facility] [id number] History and physical note* Terry Drew MD [...] worsening chest pain was seen at the [place] ED found to have elevated troponins now transferred to [facility]. Currently patient has no chest pain. Past Medical History: Past Medical History: Diagnosis Date Angina pectoris ([facility]) Anxiety Arrhythmia A-fib Asthma CAD (coronary artery disease) Cerebral artery occlusion with cerebral infarction ([facility]) COPD (chronic obstructive pulmonary disease) ([facility]) Depression WATTS (dyspnea on exertion) Fatigue GERD (gastroesophageal reflux disease) History of cardioversion 05/07/2016 Successful conversion of a-fib to SR History of left heart catheterization 05/07/2016 60% stenosis right posterior descending, patent stents in prox, mid & distal RCA, patent stentsin med LCx. Findings unchanged from previous study. 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 FPC current use of anticoagulant NSTEMI (non-ST elevated myocardial infarction) (CMS/HCC) ([facility]) 12/2012 NSTEMI (non-ST elevated myocardial infarction) (CMS/HCC) ([facility]) 05/2014 Obesity Old SC (myocardial infarction) HIPOLIOT (obstructive sleep apnea) HIPOLITO on CPAP PAF (paroxysmal atrial fibrillation) ([facility]) ([facility]) Rheumatoid arthritis(714.0) ([facility]) ST segment elevation myocardial infarction (STEMI) of anterolateral wall, subsequent episode of care ([facility]) ([facility]) TIA (transient ischemic attack) Past Surgical History: [...] CORONARY ANGIOPLASTY WITH STENT PLACEMENT Left 12/01/2021 REGIONAL MARKETING MANAGER/PCI to prox RCA CORONARY ANGIOPLASTY WITH STENT [...] Status post left heart catheterization 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 Class 2 obesity in adult COPD (chronic obstructive pulmonary disease) ([facility]) HIPOLITO on CPAP CAD (coronary artery disease) PAF (paroxysmal atrial fibrillation) ([facility]) ([facility]) CKD NSTEMI patient with known coronary artery [...] patient's PCP. Thank you. Electronically signed by @MEMDNR@ on @TDNR@ at @NOWNR@ documented in this [facility]07-16-2023 History and physical note Author Henrietta Quinonez [facility] December 06, 2022 4:25am Note Date/Time December 06, 2022 12:4 2am [facility] Medical Records Department [address] [place] [id number] H&P Exam - Hospitalist 12/06/22 0038 MR#: [id number] Acct: [id number] Name: SHANNON OLSON Rep #:[id number] : 1955 67 From: Henrietta Quinonez MD [...] HIPOLITO, Rheumatoid arthritis who presents to the [facility] ED on 12/06/22 with history of [...] ministered full-strength aspirin therapy and sublingual nitroglycerin. [facility] Medical History Anxiety Atrial fibrillation CAD (coronary artery disease) Cardiology follow-up encounter Chest pain Cholelithiasis with chronic cholecystitis COPD (chronic obstructive pulmonary disease) COPD (chronic obstructive pulmonary disease) Coronary atherosclerosis of pauma coronary vessel Depression Difficulty swallowing Dysphagia Epidermal [...] 92.5 H, Lymph % (Auto) 3.8 L, Harmon % (Auto) 2.4, Eos % (Auto) 0.0, [...] HIPOLITO, Rheumatoid arthritis who presents to the [facility] ED on 12/06/22 with history of [...] 75 minutes. Charges/Coding Visit Charges Inpatient E&M: 26659 Init Hosp L3 Procedures Hospitalists Procedures: 94768 Advncd Care Plan 30 Min 12/06/22 0232 <Electronically signed by Henrietta Quinonez MD> Cosigner Signature (if applicable): CC: Dr. Henrietta Quinonez MD; Dr. Finn Ferrell MD~ Signed ADDENDUM by Dr. Henrietta Quinonez MD on 12/06/22 at 0425 Addendum Patient notified hospitalist of preference instead of admission to [facility] to be transferred to [facility] where he has had his prior cardiac care and stent placements. Case discussed by Hospitalist and ED with [facility] with [facility] Cardiology and Hospitalist service, awaiting bed. Visit Charges Office Visits / Consults: 81969 ED Visit; High/Threatening Severity (Patient being transferred instead of admitted, [place] code to 32465/10621.) Procedures Hospitalists Procedures: 74850 Advncd Care Plan 30 Min (Patient being transferred instead of admitted[place] 67180/58844.) 12/06/22 0425<Electronically signed by Henrietta Quinonez MD> Cosigner Signature (if applicable): cc: Dr. Henrietta Quinonez MD; Dr. Finn Ferrell MD ~* Signed [facility] Work Phone: 1(625) 674-267307-16-2023 Discharge summary Author Kraig Bautista [facility] December 06, 2022 4:14am Note Date/Time December 05, 2022 10:4 8pm [facility] Medical Records Department [address] [place] [address] Emergency Department Summary 12/05/22 MR#: [id number] Acct: [id number] Name: SHANNON OLSON Rep #:[id number] : 1955 67 From: Kraig Clement PCP: Dr. Finn Ferrell MD Status:RE G ER Location: ED HPI History of Present Illness Chief Complaint: Chest Pain [facility] Medical History Anxiety Atrial fibrillation CAD (coronary artery disease) Cardiology follow-up encounter Chest pain Cholelithiasis with chronic cholecystitis COPD (chronic obstructive pulmonary disease) COPD (chronic obstructive pulmonary disease) Coronary atherosclerosis of pauma coronary vessel Depression Difficulty swallowing Dysphagia Epidermal [...] obtained from others: The patient's family Consults: checkering machine operator Dr. Santacruz, Internal medicine Dr. Quinonez, internal medicine [facility] Dr. Oneil ALL IMAGES (IF OBTAINED) HAVE [...] and confirmatory testing. Offer admission here at [facility] however he refused. He stated he like be admitted to [facility]. I communicated with the iso coordinator Dr. Santacruz at [facility] who agreed the patient can be admitted to telemetry floor. I discussed the case with Dr. Oneil. The patient and/or family, caregivers express understanding. [...] 92.5 H Lymph % (Auto) 3.8 L Harmon % (Auto) 2.4 Eos % (Auto) 0.0 [...] Disposition Disposition: Acute Care Hospital Discharge Location: [facility] What to do if you have Problems For any increased pain, shortness of breath, bleeding, nausea or vomiting, chestpain, or any unexpected problems, contact your Primary Care Provider. Call [employer] [facility] ([phone]) or report to the closest Emergency Room. Call 911 if necessary. 12/06/22 0414 <Electronically signed by Kraig Bautista DO> Cosigner Signature (if applicable): CC: Dr. Finn Ferrell MD ~ Signed [facility] Work Phone: 1(335) 662-269107-13-2023 History of Present illness Narrative* Zoie Gonzales MD - 12/03/2022 2:30 PM EDT [facility] [address] [facility] [address] Dept: [phone] Dept Visit type: Established : 1955 Chief [...] Past Medical History: Diagnosis Date Angina pectoris ([facility]) Anxiety Arrhythmia A-fib Asthma CAD (coronary artery disease) Cerebral artery occlusion with cerebral infarction ([facility]) COPD (chronic obstructive pulmonary disease) ([facility]) Depression WATTS (dyspnea on exertion) Fatigue GERD (gastroesophageal reflux disease) History of cardioversion 05/07/2016 Successful conversion of a-fib to SR History of left heart catheterization 05/07/2016 60% stenosis right posterior descending, patent stents in prox, mid & distal RCA, patent stentsin med LCx. Findings unchanged from previous study. 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 FPC current use of antiarrhythmic drug FPC current use of anticoagulant NSTEMI (non-ST elevated myocardial infarction) (CMS/HCC) ([facility]) 12/2012 NSTEMI (non-ST elevated myocardial infarction) (CMS/HCC) ([facility]) 05/2014 Obesity Old SC (myocardial infarction) HIPOLITO (obstructive sleep apnea) HIPOLITO on CPAP PAF (paroxysmal atrial fibrillation) ([facility]) ([facility]) Rheumatoid arthritis(714.0) ([facility]) ST segment elevation myocardial infarction (STEMI) of anterolateral wall, subsequent episode of care ([facility]) ([facility]) TIA (transient ischemic attack) Past Surgical History [...] CORONARY ANGIOPLASTY WITH STENT PLACEMENT Left 12/01/2021 REGIONAL MARKETING MANAGER/PCI to prox RCA CORONARY ANGIOPLASTY WITH STENT [...] 9-1-1 immediately., Disp: 25 tablet, Rfl: 3 spironolactone [...] lb 9.6 oz (140 kg) Height: 6' 2" (1.88 m) Body mass index is 39.75 [...] 34 (H) 10/29/2022 CREATININE 1.53 (H) 10/29/2022 [facility] Lab Results Component Value Date CHLPL 144 [...] Final Assessment and Plan: 1. 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 2. Primary hypertension 3. NSTEMI (non-ST elevated myocardial infarction) ([facility]) ([facility]) 4. PAF (paroxysmal atrial fibrillation) ([facility]) ([facility]) 5. Other hyperlipidemia My summary and recommendation [...] in about a month. documented in this [facility]-21-2023 History of Present illness Narrative* Chris Boyce MD - 11/11/2022 10:15 AM EDT [facility] PUL[facility]ARY AND SLEEP MEDICINE ESTABLISHED PATIENT VISIT [...] accidents. Reports chronic excessive daytime somnolence. 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 Assessment and Plan: Obstructive sleep apnea [...] Past Medical History: Diagnosis Date Angina pectoris ([facility]) Anxiety Arrhythmia A-fib Asthma CAD (coronary artery disease) Cerebral artery occlusion with cerebral infarction ([facility]) COPD (chronic obstructive pulmonary disease) ([facility]) Depression WATTS (dyspnea on exertion) Fatigue GERD (gastroesophageal reflux disease) History of cardioversion 05/07/2016 Successful conversion of a-fib to SR History of left heart catheterization 05/07/2016 60% stenosis right posterior descending, patent stents in prox, mid & distal RCA, patent stentsin med LCx. Findings unchanged from previous study. 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 FPC current use of anticoagulant NSTEMI (non-ST elevated myocardial infarction) ([facility]) ([facility]) 12/2012 NSTEMI (non-ST elevated myocardial infarction) ([facility]) ([facility]) 05/2014 Obesity Old SC (myocardial infarction) HIPOLITO (obstructive sleep apnea) HIPOLITO on CPAP PAF (paroxysmal atrial fibrillation) ([facility]) ([facility]) Rheumatoid arthritis(714.0) ([facility]) ST segment elevation myocardial infarction (STEMI) of anterolateral wall, subsequent episode of care ([facility]) ([facility]) TIA (transient ischemic attack) Past Surgical History [...] CORONARY ANGIOPLASTY WITH STENT PLACEMENT Left 12/01/2021 REGIONAL MARKETING MANAGER/PCI to prox RCA CORONARY ANGIOPLASTY WITH STENT [...] 01-22- immediately., Disp: 25 tablet, Rfl: 3 nitroglycerin [...] lb 3.2 oz (140 kg) Height: 6' 2.49" (1.892 m) Physical Exam Constitutional: General: He [...] Results: No results found for: FEV1, FVC, YRO8MHS, TLC, DLCO No results found for: FEV1, FVC, RWK5TWH, TLC, DLCO documented in this [facility]06-21-2023 Instructions* Patient Instructions* Marii Kumar Rai, MA - 11/11/2022 10:15 AM EDT YOUR APPOINTMENT TODAY WAS WITH THE [facility], COPD CLINIC, PULMONARY AND SLEEP MEDICINE OFFICE. PLEASE CALL OUR OFFICE AT [phone] IF YOU HAVE NOT RECEIVED YOUR TEST [...] to make improvements. COVID-19 VACCINATION INFORMATION: PH. [phone] [email or web address] [facility] Central Scheduling [phone] [facility] Sleep Scheduling [phone] documented in this [facility]-24[facility]2023 History of Present illness Narrative* DANIELLE Bernstein CNP - 10/14/2022 9:33 AM EDT error documented in this [facility]-11-2023 History of Present illness Narrative* DANIELLE Bernstein CNP - 10/01/2022 2:01 PM EDT Patient will need outstanding BNP and D.Dimer completed. I have also added repeat BMP as he is now on higher dose lasix starting this week documented in this [facility]-08-2023 History of Present illness Narrative* DANIELLE Bernstein CNP - 09/28/2022 1:30 PM EDT Images from the original note were not included. [facility] [address] [facility] [address] Dept: [phone] Dept Loc: [phone] Visit type: Established : 1955 Reason for Visit: Edema (Shortness of breath./Lower ext edema following shoulder surgery ) Assessment and Plan 1. Coronary artery disease involving pauma coronary artery of pauma heart without angina pectoris -Stable. No anginal [...] in proximal-mid LCx. MidRCA instent restenosis with REGIONAL MARKETING MANAGER and left to right collaterals. There was unsuccessful attempt to revascularize mid RCA instent restenosis REGIONAL MARKETING MANAGER.Guidewire was passed across the occlusion and multiple [...] and eliquis. 06/2022: most recent visit with line producer: chest pain with activity that relived with [...] in chair with legs elevated some nights. [place] in legs is less in the AM [...] Past Medical History: Diagnosis Date Angina pectoris ([facility]) Anxiety Arrhythmia A-fib Asthma CAD (coronary artery disease) Cerebral artery occlusion with cerebral infarction ([facility]) COPD (chronic obstructive pulmonary disease) ([facility]) Depression WATTS (dyspnea on exertion) Fatigue GERD (gastroesophageal reflux disease) History of cardioversion 05/07/2016 Successful conversion of a-fib to SR History of left heart catheterization 05/07/2016 60% stenosis right posterior descending, patent stents in prox, mid & distal RCA, patent stentsin med LCx. Findings unchanged from previous study. 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 FPC current use of anticoagulant NSTEMI (non-ST elevated myocardial infarction) ([facility]/HCC) ([facility]) 12/2012 NSTEMI (non-ST elevated myocardial infarction) ([facility]/HCC) ([facility]) 05/2014 Obesity Old SC (myocardial infarction) HIPOLITO (obstructive sleep apnea) HIPOLITO on CPAP PAF (paroxysmal atrial fibrillation) ([facility]) ([facility]) Rheumatoid arthritis(714.0) ([facility]) ST segment elevation myocardial infarction (STEMI) of anterolateral wall, subsequent episode of care ([facility]) (HCC) TIA (transient ischemic attack) Social History Tobacco [...] CORONARY ANGIOPLASTY WITH STENT PLACEMENT Left 12/01/2021 REGIONAL MARKETING MANAGER/PCI to prox RCA CORONARY ANGIOPLASTY WITH STENT [...] (!) 308 lb (140 kg) Height: 6' 2" (1.88 m) Physical Exam Constitutional: Appearance: Normal [...] 12/01/2021 HGB 13.1 12/01/2021 MCV 90.3 12/01/2021 [id number] Score for Atrial Fibrillation Stroke Risk Risk Factors C CHF No, 0 H HTN Yes, 1 A2 Age >= 75 No, 0 D DM No, 0 S2 Prior Stroke/TIA Yes, 1 V Vascular Disease Yes, 1 A Age 65-74 Yes, 1 Sc Sex Male, 0 [id number] Score 4 Calculator: [id number] risk stratification score for estimation of stroke risk for nonvalvular atrial fibrillation in adults - UpToDate Atrial fibrillation in adults: Use of oral anticoagulants - UpToDate DANIELLE Bernstein CNP documented in this [facility]05-08-2023 Instructions* Patient Instructions* DANIELLE Bernstein CNP - [...] Call to schedule Echo. documented in this [facility]03-31-[address] Cornelius [facility] August 21, 2022 11:25am Note Date/Time August 21, 2022 11: 24am [facility] Medical Records Department [address] [place] [address] Discharge Summary 08/21/22 1122 MR#: [id number] Acct: [id number] Name: SHANNON OLSON Rep #:[id number] : 1955 66 From: James miller DO PCP: Care Physician,No Primary Status :ADM MYRTLE [facility] Prov[facility] Date of Admission: 08/20/22 Primary Care [...] 90.5 H, Lymph % (Auto) 4.2 L, Harmon % (Auto) 4.8, Eos % (Auto) 0.0, [...] Cornelius DO; No Primary Care Physician~ Signed [facility] Work Phone: 1([phone]) 257-693703-31-[address] Cornelius [facility] August 21, 2022 11:22am Note Date/Time August 21, 2022 11: 22am [facility] Medical Records Department [address] [place] [address] Instructions for Home/Discharge Instructions 08/21/22 1122 MR#: [id number] Acct: [id number] Name: SHANNON OLSON Marlena Rep #:[id number] : 1955 66 From: James miller DO PCP: Care Physician,No Primary Status :ADM MYRTLE Discharge Instructions Follow Up Care Test Results: [...] MD; No Primary Care Physician ~ Signed [facility] Work Phone: 1(373) 360-723703-31-[address] Medina [facility] August 21, 2022 10:13am Note Date/Time August 21, 2022 10: 13am [facility] Medical Records Department [address] [place] [address] Progress Note - Hospitalist 08/21/22 1009 MR#: [id number] Acct: [id number] Name: SHANNON OLSON Rep #:[id number] : 1955 66 From: Xiao Medina MD PCP: Care Physician,No Primary Status :ADM MYRTLE Location: RI3 [id number] Reason for Visit Reason for Visit: Diagnoses [...] 90.5 H, Lymph % (Auto) 4.2 L, Harmon % (Auto) 4.8, Eos % (Auto) 0.0, [...] routine follow up with PCP and his line producer.Stable for d/c from hospitalist standpoint Xiao Medina MD Charges/Coding Visit Charges Inpatient E&M: 24377 Subs Hosp L2 08/21/22 1013 <Electronically signed by Xiao Medina MD> Cosigner Signature (if applicable): CC: ~ Signed [facility] Work Phone: 1(198) 162-796803-31-[address] Cornelius [facility] August 21, 2022 7:19am Note Date/Time August 21, 2022 7:1 9am [facility] Medical Records Department [address] [place] [address] Progress Note - Orthopedic 08/21/22716 MR#: [id number] Acct: [id number] Name: SHANNON OLSON Rep #:[id number] : 1955 66 From: James miller DO PCP: Care Physician,No Primary Status :ADM MYRTLE Location: MS3 MT859-1 Subjective Subjective Patient seen and examined. Pain [...] 90.5 H, Lymph % (Auto) 4.2 L, Harmon % (Auto) 4.8, Eos % (Auto) 0.0, [...] home today if okay with internal medicine. 08/21/22718 <Electronically signed by James Cornelius DO> Cosigner Signature (if applicable): CC: ~ Signed [facility] Work Phone: 1(420) 482-807703-30-[address] Medina [facility] August 20, 2022 2:48pm Note Date/Time August 20, 2022 2:3 7pm [facility] Medical Records Department [address] [place] [address] Progress Note - Hospitalist 08/20/22 1436 MR#: [id number] Acct: [id number] Name: SHANNON OLSON Rep #:[id number] : 1955 66 From: Xiao Medina MD PCP: Care Physician,No Primary Status :ADM [facility] Location: [place] [address] Reason for Visit Reason for Visit: Diagnoses Encounter for other preprocedural examination (08/20/22) Subjective Subjective Mr. Olson is a 66-year-old male with a history of atrial fibrillation, coronaryartery disease, CVA, GERD, RA, HIPOLITO who presented to [facility] 08/20/2022 for a left shoulder rotator cuff [...] Charges/Coding Visit Charges Office Visits / Consults: 64977 OP Consult L3 08/20/22 1448 <Electronically signed by Xiao Medina MD> Cosigner Signature (if applicable): CC: ~ Signed [facility] Work Phone: 1(952) 762-800903-30-2023 Procedure [facility] 07-06-2022 History of Present illness Narrative* Zoie Gonzales MD - 07/06/2022 2:45 PM EST [facility] Cardiology [facility] [address] [facility] [address] Dept: [phone] Dept Loc: [phone] Visit type: Established : 1955 Chief Complaint: Chief Complaint Patient presents with 6 Month Follow-up History of Present Illness: Shannon Olson is a 66 y.o. male Past Medical History: Past Medical History: Diagnosis Date Angina pectoris (HCC) Anxiety Arrhythmia A-fib Asthma CAD (coronary artery disease) Cerebral artery occlusion with cerebral infarction ([facility]) ([facility]) COPD (chronic obstructive pulmonary disease) ([facility]) Depression WATTS (dyspnea on exertion) Fatigue GERD (gastroesophageal reflux disease) History of cardioversion 05/07/2016 Successful conversion of a-fib to SR History of left heart catheterization 05/07/2016 60% stenosis right posterior descending, patent stents in prox, mid & distal RCA, patent stentsin med LCx. Findings unchanged from previous study. 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 NSTEMI (non-ST elevated myocardial infarction) ([facility]) ([facility]) 12/2012 NSTEMI (non-ST elevated myocardial infarction) ([facility]) ([facility]) 05/2014 Obesity Old SC (myocardial infarction) HIPOLITO (obstructive sleep apnea) HIPOLITO on CPAP PAF (paroxysmal atrial fibrillation) ([facility]) ([facility]) Rheumatoid arthritis(714.0) ([facility]) ST segment elevation myocardial infarction (STEMI) of anterolateral wall, subsequent episode of care ([facility]) ([facility]) TIA (transient ischemic attack) Past Surgical History [...] CORONARY ANGIOPLASTY WITH STENT PLACEMENT Left 12/01/2021 REGIONAL MARKETING MANAGER/PCI to prox RCA CORONARY ANGIOPLASTY WITH STENT [...] Weight: 298 lb (135 kg) Height: 6' 2" (1.88 m) Body mass index is 38.26 [...] summer. The right coronary artery is a REGIONAL MARKETING MANAGER and could not be opened. The prior [...] BUN 30 (H) 12/01/2021 CREATININE 1.24 12/01/2021 @LASTCMP@ Lab Results Component Value Date CHLPL [...] Final Assessment and Plan: 1. 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 2. Primary hypertension 3. PAF (paroxysmal atrial fibrillation) ([facility]) ([facility]) 4. Other hyperlipidemia I summary and recommendation [...] I given his cardiacstatus documented in this [facility]07-11-2022 Hospital Discharge instructions* Instructions* Milagro Jaimes APRN - EXTRACTOR AND WRINGER OPERATOR - 12/01/2021 Call your doctor with any medication questions or if you notice any side effects from your medications. If you are unable to fill your medications, please call your Drilling Field Specialist immediately. The office number is located with [...] for 24 hours. GIVE PCI PACKET (FROM [employer]) TO PATIENT Give Coronary Artery Discharge Booklet [...] be gone by tomorrow. documented in this [facility] Work Phone: [phone]) 813-453710-26-2021 NoteName: Shannon Olson Date of : 1955 Date of Admission: 03/17/2021 Date of Discharge: 03/18/2021 Admitting physician: Zoie Gonzales MD Discharge Attending: DANIELLE Whitehead CNP, Primary Care Physician: MARINO D TALAMPAS Review of Systems: Review of Systems Constitutional: [...] Diagnosis ? NSTEMI (non-ST elevated myocardial infarction) ([facility]) ? Hypertension ? Hyperlipidemia ? Atherosclerotic heart disease of pauma coronary artery with other forms of angina pectoris ([facility]) ? COPD (chronic obstructive pulmonary disease) ([facility]) ? HIPOLITO on CPAP ? PAF (paroxysmal atrial fibrillation) (HCC) ? FPC current use of anticoagulant ? FPC current use of antiarrhythmic drug ? HIPOLITO (obstructive sleep apnea) ? Chest pain ? CAD (coronary artery disease) ? Unstable angina (HCC) ? 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 ? Status post left heart catheterization [...] there is a residual 0% stenosis with JORADN grade 2 flow (partial perfusion). IMPRESSIONS: ? 1. Successful re-stenting of the mid-distal RCA ( 3.5 mm at high pressure reuired 38 mm, 38mm, and 23 mm stenst) 2. Small diffusely disease (more content not included)...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 He was admitted to [facility] in March with COVID 19. In 08/2019 he underwent a PCI to In stent restenosis in the RCA, secondary to an abnormal stress test. He developed recurrent angina pectoris. He was scheduled for [facility]. Stents to CX and LAD patent, successful [...] Discharge Medications: Shannon Olson Home Medication Instructions LUIZ:[id number] Printed on:03/18/21 9887 Medication Information albuterol sulfate HFA (VENTOLIN HFA) [...] tablet Take 1 tablet by mouth daily xmyxkioaoqv-paegfsvvc-lliejc (TRELEGY ELLIPTA) 100-62.5-25 MCG/INH AEPB Inhale 1 [...] Cardiac Rehab The Cardiac Rehabilitation Team at [facility] consists of highly skilled healthcare professionals, including [...] regarding this valuable service please call # [phone] Orientation is available on all Wednesdays at 11:30 am location in the [address] [facility] BMI Classification: Obese (BMI 30.0-39.9) DIET: A lowfat, low cholesterol diet was discussed with the patient. Discharge to Home Condition at Discharge: good Follow up with cardiology 03/24/2021 at 1:30 pm With Danisha OLIVERA CNP If any questions call [facility] office [phone] Total time spent for Discharge time greater than 31 minutes [facility] Work Phone: [phone] 168-174110-26-2021 History of Present illness Narrative* Zoie Gonzales [...] Status post left heart catheterization 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 Resolved Problems: * No resolved hospital [...] follow up in office [facility] Work Phone: [phone]) 717-583610-25-2021 Hospital Discharge instructions* Instructions* Milagro Jaimes APRN - RIA - 03/17/2021 Call your doctor with any medication questions or if you notice any side effects from your medications. If you are unable to fill your medications, please call your Drilling Field Specialist immediately. The office number is located with [...] for 24 hours. GIVE PCI PACKET (FROM [employer]) TO PATIENT Give Coronary Artery Discharge Booklet [...] Cardiac Rehab The Cardiac Rehabilitation Team at [facility] consists of highly skilled healthcare professionals, including [...] regarding this valuable service please call # [phone] documented in this [facility] Work Phone: 1(245) 585-589605-06-2021 NoteHNO ID: [id number] Author: Mari Madison LPN Service: ? Author [...] Scheduling/Wellness visits Payer: Payor: EDELMIRA / Plan: WHObyYOU PPO / Product Type: PPO / Care [...] future healthcare decisions with a power of ip technology transactions attorney, living will, or advance directives? No. Are you interested in a follow-up phone call or visit with a doctor for more information about planning for future health care decisions? No Referrals: N/A Message Sent to Practice: NO Navigation Signature: Mari Madison LPN September 26, 2020 3:40 [facility]05-06-2021 NotePatient Outreach (INTMWS) SHANNON OLSON ([id number]) 1955 M Date Time Provider Department 09/26/20 MARINO SUAREZ During your visit today, we recorded the following information about you: aMri Madison LPN 09/26/2020 3:51 PM Signed [facility] NAVIGATION OUTREACH Action/FYI HTN - Attempted to contact patient regarding elevated BP. Looks like he is following with cardiology, no answer letter mailed. Contact made with patient or family member? NO Pt identified by name and : YES Outreach Outcome/Action Letter mailed Reason for Outreach Care Gap or Scheduling/Wellness visits Payer: Payor: EDELMIRA / Plan: Expert TA ACCESS PPO / Product Type: PPO / [...] future healthcare decisions with a power of ip technology transactions attorney, living will, or advance directives? No. 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, unspecified documented in this encounter [facility] Work Phone: Evaluation note* Diagnosis Stable angina pectoris (HCC) Coronary artery disease involving pauma coronary artery of pauma heart without angina pectoris documented in this encounter [facility] Work Phone: Evaluation note* Diagnosis 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- Primary Coronary atherosclerosis of pauma coronary artery Coronary artery disease involving pauma coronary artery of pauma heart without angina pectoris Unstable angina (HCC) Intermediate coronary syndrome Status post left heart catheterization documented in this encounter [facility] Work Phone: Evaluation noteNo assessment information available [facility] Work Phone: Evaluation note* Diagnosis Chronic obstructive pulmonary disease, unspecified ([facility]) COPD with asthma ([facility]) Chronic obstructive asthma, unspecified documented in this encounter [facility] Work Phone: Evaluation note* Diagnosis Onset Date Resolution Status Low hemoglobin acute Total bilirubin, elevated ac tonia Chronic diarrhea chronic Esophageal reflux chronic [facility] Work Phone: Evaluation note* Diagnosis Onset Date Resolution Status Low hemoglobin acute Total bilirubin, elevated ac tonia Chronic diarrhea chronic Esophageal reflux chronic Gastritis acute Chronic diarrhea chronic Esophageal reflux chronic Diarrhea acute Dysphagia acute [facility] Work Phone: Evaluation note* Diagnosis Onset Date Resolution Status Epidermal inclusion cyst acu te Diarrhea chronic Gastric reflux chronic Skin lesion acute Rotator cuff disorder acute [facility] Work Phone: Evaluation note* Diagnosis Onset Date Resolution Status Diarrhea chronic Gastric reflux chronic Skin lesion acute Rotator cuff disorder acute [facility] Work Phone: Evaluation note* Diagnosis Coronary artery disease involving pauma coronary artery of pauma heart without angina pectoris- Primary Localized edema Edema PAF (paroxysmal atrial fibrillation) (CMS/HCC) (HCC) Atrial fibrillation Primary hypertension Unspecified essential hypertension Chronic obstructive pulmonary disease, unspecified COPD type ([facility]) WATTS (dyspnea on exertion) Other dyspnea and respiratory abnormality Shortness of breath on exertion Shortness of breath documented in this encounter [facility]* Diagnosis WATTS (dyspnea on exertion)- Primary Other dyspnea and respiratory abnormality Localized edema Edema documented in this encounter [facility] Samesurfaluation note* Diagnosis Onset Date Resolution Status Diarrhea chronic Gastric reflux chronic Skin lesion acute Rotator cuff disorder acute Left thyroid nodule acute [facility] Work Phone: Evaluation note* Diagnosis HIPOLITO (obstructive sleep apnea)- Primary Obstructive sleep apnea (adult) (pediatric) Transient disorder of initiating or maintaining sleep documented in this encounter [facility] note* Diagnosis Localized edema Edema documented in this encounter [facility] note* Diagnosis Onset Date Resolution Status Skin lesion acute Rotator cuff disorder acute Left thyroid nodule acute [facility] Work Phone: Evaluation note* Diagnosis 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 Primary hypertension Unspecified essential hypertension NSTEMI (non-ST elevated myocardial infarction) ([facility]) ([facility]) Acute myocardial infarction, subendocardial infarction, episode of care unspecified PAF (paroxysmal atrial fibrillation) ([facility]) ([facility]) Atrial fibrillation Other hyperlipidemia documented in this encounter [facility] Samesurfaluation note* Diagnosis HIPOLITO (obstructive sleep apnea)- Primary Obstructive sleep apnea (adult) (pediatric) documented in this encounter [facility] GLWL Researchation note* Diagnosis Renal insufficiency- Primary Unspecified disorder of kidney and ureter documented in this encounter [facility] Samesurfaluation note* Diagnosis Chest pain- Primary Unspecified chest pain Chest pain Unspecified chest pain Status post left heart catheterization 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 Class 2 obesity in adult COPD (chronic obstructive pulmonary disease) ([facility]) Chronic airway obstruction, not elsewhere classified HIPOLITO on CPAP PAF (paroxysmal atrial fibrillation) ([facility]) ([facility]) Atrial fibrillation documented in this encounter [facility] Samesurfaluation note* Diagnosis Onset Date Resolution Status Rotator cuff disorder acute Left thyroid nodule acute [facility] Work Phone: Evaluation note* Diagnosis Onset Date Resolution Status Left thyroid nodule acute [facility] Work Phone: Evaluation note* Diagnosis Presence of coronary angioplasty implant and graft documented in this encounter [facility] Samesurfaluation note* Diagnosis WATTS (dyspnea on exertion)- Primary Other dyspnea and respiratory abnormality documented in this encounter [facility]uation note* Diagnosis WATTS (dyspnea on exertion)- Primary Other dyspnea and respiratory abnormality 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 PAF (paroxysmal atrial fibrillation) ([facility]) (HCC) Atrial fibrillation 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 Stage 3a chronic kidney disease (HCC) Primary hypertension Unspecified essential hypertension Other hyperlipidemia Presence of coronary angioplasty implant and graft documented in this encounter [facility] HealthEvaluation note* Diagnosis 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 documented in this encounter [facility] HealthEvaluation note* Diagnosis Atherosclerotic heart disease of pauma coronary artery with other forms of angina pectoris ([facility]) NSTEMI (non-ST elevated myocardial infarction) ([facility]) ([facility]) Acute myocardial infarction, subendocardial infarction, episode of care unspecified Hypertension, unspecified type PAF (paroxysmal atrial fibrillation) ([facility]) Atrial fibrillation Atherosclerotic heart disease of pauma coronary artery with other forms of angina pectoris ([facility])- Primary Atherosclerotic heart disease of pauma coronary artery with other forms of angina pectoris ([facility]) documented in this encounter [facility] Health[facility] note* Diagnosis Atherosclerotic heart disease of pa[place] coronary artery with other forms of angina pectoris ([facility])- Primary Coronary artery disease of [place] artery of pauma heart with stable angina pectoris ([facility]) Atherosclerotic heart disease of pauma coronary artery with other forms of angina pectoris ([facility]) documented in this encounter [facility]Evaluation note* Diagnosis 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- Primary Essential hypertension, benign Chronic diastolic heart failure (HCC) Chronic diastolic heart failure PAF (paroxysmal atrial fibrillation) (HCC) Atrial fibrillation Mixed hyperlipidemia documented in this encounter [facility] HealthEvaluation note* Diagnosis HIPOLITO (obstructive sleep apnea)- Primary Obstructive sleep apnea (adult) (pediatric) documented in this encounter [facility]Evaluation note* Diagnosis 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- Primary Chronic diastolic heart failure (HCC) Chronic diastolic heart failure Essential hypertension, benign PAF (paroxysmal atrial fibrillation) (HCC) Atrial fibrillation Mixed hyperlipidemia documented in this encounter [facility]Evaluation note* Diagnosis HIPOLITO treated with BiPAP- Primary 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) PAF (paroxysmal atrial fibrillation) (HCC) Atrial fibrillation Chronic diastolic heart failure (HCC) Chronic diastolic heart failure Chronic bronchitis, unspecified chronic bronchitis type ([facility]) [facility] Diagnosis Onset Date Resolution Status Dysphagia [facility] Work Phone: Evaluation note* Diagnosis 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- Primary Chronic diastolic heart failure (HCC) Chronic diastolic heart failure Essential hypertension, benign PAF (paroxysmal atrial fibrillation) (HCC) Atrial fibrillation Mixed hyperlipidemia [facility] Diagnosis 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- Primary Chronic diastolic heart failure (HCC) Chronic diastolic heart failure Essential hypertension, benign PAF (paroxysmal atrial fibrillation) (HCC) Atrial fibrillation Mixed hyperlipidemia [facility] Diagnosis Onset Date Resolution Status Dysphagia acute Chest pain acute Dysphagia acute Gastric reflux [facility] Work Phone: Evaluation note* Diagnosis 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- Primary Essential hypertension, benign Mixed hyperlipidemia PAF (paroxysmal atrial fibrillation) (HCC) Atrial fibrillation Chronic diastolic heart failure (HCC) Chronic diastolic heart failure [facility] Diagnosis Unstable angina (CMS/HCC) (HCC) Intermediate coronary syndrome [facility] Diagnosis Obesity (BMI 30-39.9)- Primary 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 Essential hypertension Unspecified essential hypertension Mixed hyperlipidemia [facility] Diagnosis HIPOLITO (obstructive sleep apnea) Obstructive sleep apnea (adult) (pediatric) documented in this encounter [facility]Evaluation note* Diagnosis Unstable angina (CMS/HCC) (HCC) Intermediate coronary syndrome documented in this encounter [facility] note* Diagnosis Paroxysmal atrial fibrillation (HCC) Atrial fibrillation 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) [facility] Diagnosis 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 Presence of coronary angioplasty implant and graft documented in this encounter [facility] note* Diagnosis 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 Primary hypertension Unspecified essential hypertension PAF (paroxysmal atrial fibrillation) (CMS/HCC) (HCC) Atrial fibrillation Other hyperlipidemia documented in this encounter [facility]Evaluation note* Diagnosis 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 documented in this encounter [facility] note* Diagnosis 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- Primary PAF (paroxysmal atrial fibrillation) (HCC) Atrial fibrillation Obesity (BMI 30-39.9) Essential hypertension Unspecified essential hypertension Mixed hyperlipidemia Abnormal EKG Nonspecific abnormal electrocardiogram (ECG) (EKG) [facility] Diagnosis Palpitations- Primary PAF (paroxysmal atrial fibrillation) (HCC) Atrial fibrillation WATTS (dyspnea on exertion) Other dyspnea and respiratory abnormality [facility] Diagnosis PAF (paroxysmal atrial fibrillation) (HCC)- Primary Atrial fibrillation 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 Essential hypertension Unspecified essential hypertension Mixed hyperlipidemia Obesity (BMI 30-39.9) documented in this encounter [facility]* Diagnosis Palpitations PAF (paroxysmal atrial fibrillation) (HCC) Atrial fibrillation documented in this encounter [facility]* Diagnosis 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 PAF (paroxysmal atrial fibrillation) (HCC) Atrial fibrillation Essential hypertension Unspecified essential hypertension Abnormal EKG Nonspecific abnormal electrocardiogram (ECG) (EKG) documented in this encounter [facility]* Diagnosis 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 documented in this encounter [facility]* Diagnosis 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 Unstable angina (CMS/HCC) (HCC)- Primary Intermediate coronary syndrome documented in this encounter [facility]* Diagnosis Unstable angina (CMS/HCC) (HCC)- Primary Intermediate coronary syndrome Unstable angina (CMS/HCC) (HCC)- Primary Intermediate coronary syndrome [facility] Diagnosis Unstable angina (CMS/HCC) (HCC)- Primary Intermediate coronary syndrome Unstable angina (CMS/HCC) (HCC)- Primary Intermediate coronary syndrome Unstable angina (CMS/HCC) (HCC) Intermediate coronary syndrome documented in this encounter [facility]* Diagnosis Unstable angina (CMS/HCC) (HCC)- Primary Intermediate coronary syndrome Unstable angina (CMS/HCC) (HCC)- Primary Intermediate coronary syndrome Unstable angina (CMS/HCC) (HCC) Intermediate coronary syndrome documented in this encounter [facility]* Diagnosis Unstable angina (CMS/HCC) (HCC)- Primary Intermediate coronary syndrome Unstable angina (CMS/HCC) (HCC) Intermediate coronary syndrome Stented coronary artery Postsurgical percutaneous transluminal coronary angioplasty status Stage 3a chronic kidney disease (HCC) 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 Unstable angina (CMS/HCC) (HCC) Intermediate coronary syndrome documented in this encounter [facility]* Diagnosis 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- Primary PAF (paroxysmal atrial fibrillation) (HCC) Atrial fibrillation Essential hypertension Unspecified essential hypertension Mixed hyperlipidemia Acute on chronic diastolic congestive heart failure (HCC) documented in this encounter [facility]* Diagnosis 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- Primary Chronic diastolic heart failure (HCC) Chronic diastolic heart failure Cardiomyopathy, ischemic Other specified forms of chronic ischemic heart disease documented in this encounter [facility]* Diagnosis 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- Primary Chronic diastolic heart failure (HCC) Chronic diastolic heart failure Cardiomyopathy, ischemic Other specified forms of chronic ischemic heart disease [facility] Diagnosis Primary hypertension- Primary Unspecified essential hypertension [facility] Diagnosis WATTS (dyspnea on exertion) Other dyspnea and respiratory abnormality documented in this encounter [facility]* Diagnosis Primary hypertension Unspecified essential hypertension [facility] Diagnosis 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- Primary Chronic diastolic heart failure (HCC) Chronic diastolic heart failure Cardiomyopathy, ischemic Other specified forms of chronic ischemic heart disease Cardiomyopathy, ischemic Other specified forms of chronic ischemic heart disease documented [facility]* Diagnosis Cardiomyopathy, ischemic Other specified forms of chronic ischemic heart disease [facility]* Diagnosis 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- Primary Essential hypertension, benign Mixed hyperlipidemia [facility] Author Dwayne Bess [facility] May 20, 2023 9:58am Note Date/Time May 20, 2023 9:58am [facility] Medical Records Department [address] [place] [id number] History & Physical Exam 05/20/23 0957 MR#: [id number] Acct: [id number] Name: SHANNON OLSON Rep #:[id number] : 1955 67 From: Dwayne Bess MD PCP: Dr. Finn Ferrell MD Status:[facility] Location: [place] [address] History and Physical Date of Admission: 05/20/23 [...] (chronic obstructive pulmonary disease) Coronary atherosclerosis of pauma coronary vessel Depression Difficulty swallowing Dysphagia Epidermal [...] History (Updated 04/07/23 @ 09:11 by Silva Timbo) Sister Cancer ovarian DiabetesBrother DiabetesMother Heart disease [...] had a negative heart catheter[facility] performed [facility]. He was started on Ranexa for his chest pain and angina with complete relief. He is also been initiated on pantoprazole. He does note some epigastric burning and occasional difficulty with solid foods getting stuck. Among other medications he is on clopidogrel and metoprolol and minoxidil and Eliquis and isosorbide mononitrate and rosuvastatin. At the [facility] on March 29, 2023 he had a [...] General: cooperative, comfortable and no acute distress [facility] Head: normal to inspection Eyes General: appearance normal, both eyes and all related structures Neck Neck: normal visual inspection Resp Effort & Inspection: normal respiratory effort Auscultation: clear to auscultation bilaterally Cardio Rate: regular rate Rhythm: regular rhythm GI Inspection: normal to inspection Palpation: soft and no hepatosplenomegaly [facility] Cervical Spine: normal cervical lordosis Neuro General: [...] Ferrell MD; Dr. Dwayne Bess MD~ Signed [facility] Work Phone: Refjyw for referral (narrative)* Consultation (Routine) - Pending Review Specialty Diagnoses / Procedures Referred By Contac t Referred To Contact Bariatrics Diagnoses Obesity (BMI 30-39.9) Procedures DC OFFICE/OUTPATIENT [facility] 60 MINUTES Dominguez Ortega MD [address] [facility] [address] [place] [address] [facility] [address] [facility] [address] [place] [address] Referral ID Status Reason Start Date Expiration Date Visits Requested Visits Authorized [id number] Pending Review Specialty Services Required 02/01/2024 01/31/2025 1 1 [facility] for referral (narrative)No reason for referral [facility] Work Phone: Relxvw for visit Narrative* Cardiology (Routine) - Closed Specialty Diagnoses / Procedures Referred By Contac t Referred To Contact Cardiology Diagnoses Palpitations PAF (paroxysmal atrial fibrillation) (HCC) Procedures Cardiac holter monitor (3-7 days) DC EXTERNAL ECG REC>48HR<7D REVIEW & INTERPRETATION DC EXTERNAL ECG REC>48HR<7D RECORDING DC EXTERNAL ECG REC>7D<15D RECORDING DC EXTERNAL ECG REC>7D<15D REVIEW & INTERPRETATION [place] APRN - EXTRACTOR AND WRINGER OPERATOR [address] [place] [address] Phone: tel: fax: Referral ID Status Reason Start Date Expiration Date Visits Re quested Visits Authorized [id number] Closed 07/20/2024 07/15/2025 1 1 [facility] for visit Narrative* Imaging (Routine) - Closed Specialty Diagnoses / Procedures [facility] Referred To Contact Cardiology Diagnoses 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 PAF (paroxysmal atrial fibrillation) (HCC) Essential hypertension Abnormal EKG Procedures Transthoracic echocardiogram (TTE) complete with contrast, bubble, strain, and 3D PRN DC ECHO TTHRC R-T 2D W/WOM-MODE COMPL SPEC&COLR D DC TTE W OR WO FOL WCON,DOPPLER [place] APRN - EXTRACTOR AND WRINGER OPERATOR [address] [place] [address] Phone: tel: fax: Referral ID Status Reason Start Date Expiration Date Visits Re quested Visits Authorized [id number] Closed 07/06/2024 07/06/2025 1 1 [facility] for visit Narrative* Auth/Cert (Routine) Specialty Diagnoses / Procedures [facility] Referred To Contact Diagnoses Unstable angina (CMS/HCC) (HCC) Unstable angina (CMS/HCC) (HCC) [I20.0] Procedures DC CATH PLMT L HRT & ARTS W/NJX & ANGIO IMG S&I Left heart cath / coronary angiography Dominguez Ortega MD [address] [place] [address] Phone: tel: fax: Referral ID Status Reason Start Date Expiration Date Visits Re quested Visits Authorized [id number] 09/07/2024 1 1 [facility] for visit Narrative* Imaging (Routine) - Closed Specialty Diagnoses / Procedures [facility] Referred To Contact Cardiology Diagnoses Cardiomyopathy, ischemic Procedures Transthoracic echocardiogram (TTE) complete with contrast, bubble, strain, and 3D PRN DC ECHO TTHRC R-T 2D W/WOM-MODE COMPL SPEC&COLR D DC TTE W OR WO FOL WCON,France Abbott, TILE AND MARBLE SETTER - EXTRACTOR AND WRINGER OPERATOR [address] [place] [address] Phone: tel: fax: Referral ID Status Reason Start Date Expiration Date Visits Re quested Visits Authorized [id number] Closed 10/10/2024 10/10/2025 1 1 [facility] Health Summary Purpose Family History No Family History Records Found Relationship Condition Age at Onset Recorded Date/T [...] Malignant neoplasm of prostate Unknown Advance Directives No Advanced Directives Records FoundDocuments on File Type Date Recorded Patient Enterprise Sales Executive Expl anation Advance Directives and Living Will Power of Pulmonary Physical Therapist Latest Code Status on File Code Status [...] Documents on File Type Date Recorded Patient Enterprise Sales Executive Expl anation ACP-Advance Directive ACP-Power of Pulmonary Physical Therapist Latest Code Status on File Code Status Date Activated Date Inactivated Comments Full Code 09/15/2019 6:13 AM 09/15/2019 6:29 PM Full Code 09/08/2019 3:05 PM 09/09/2019 7:18 PM Full Code 09/08/2019 12:42 PM 09/08/2019 3:04 PM Full Code 09/06/2019 9:26 PM 09/08/2019 12:42 PM Full Code 09/05/2019 12:32 PM 09/06/2019 9:26 PM Documents on File Type Date Recorded Patient Enterprise Sales Executive Expl anation ACP-Advance Directive ACP-Power of Pulmonary Physical Therapist Latest Code Status on File Code Status [...] Recorded Date/ Time Advance Directives Yes September 03, 2 015 10:22am Living Will Yes September 09, 2021 10:56pm Power of Pulmonary Physical Therapist No September 09 10:56pm Latest Code Status [...] Date/ Time Name of Medical Power of Pulmonary Physical Therapist NEPHEW/BROTHER January 07, 2022 1:29pm Advance Directives Yes September 03, 2 015 10:22am Living Will Yes January 07 1:29pm Power of Pulmonary Physical Therapist Yes January 07, 2 022 1:29pm Advance Directive Response Recorded Date/ Time Name of Medical Power of Pulmonary Physical Therapist NEPHEW/BROTHER January 07, 2022 12:29pm Advance Directives Yes September 03, 2 015 9:22am Living Will Yes January 07 12:29pm Power of Pulmonary Physical Therapist Yes January 07, 2 022 12:29pm Advance Directive Response Recorded Date/ Time Name of Medical Power of Pulmonary Physical Therapist Reynold Olson August 20, 2022 1:18pm Advance Directives Yes September 03, 2 015 10:22am Living Will Yes August 20, 2022 1:18pm Power of Pulmonary Physical Therapist Yes August 20 1:18pm Documents on File Type Date Recorded Patient Enterprise Sales Executive Expl anation Advance Directives and Livin g Will 10/29/2022 3:11 PM Power of Pulmonary Physical Therapist 10/29/2022 3:11 PM Documents on File Type Date Recorded Patient Enterprise Sales Executive Expl anation Advance Directives and Livin g Will 10/29/2022 3:11 PM Power of Pulmonary Physical Therapist 10/29/2022 3:11 PM Advance Directive Response Recorded Date/ Time Name of Medical Power of Pulmonary Physical Therapist Reynold Olson August 20, 2022 1:18pm Name of Medical Power of Pulmonary Physical Therapist brother Ying December 05, 2022 10:49pm Advance Directives Yes September 03, 2 015 10:22am Living Will Yes December 05, 2022 10:49pm Power of Pulmonary Physical Therapist Yes December 05 10:49pm Latest Code Status on File Code Status Date Activated Date Inactivated Comments Full Code 12/06/2022 10:34 AM Healthcare Agents on File Name Relationship Healthcare Agent Relationshi p Communication Reynold Thomaser First Alternate Health Care Agent Latest Code [...] Date/ Time Name of Medical Power of Pulmonary Physical Therapist brother Ying Janice 15th, 2023 10:49pm Advance Directives Yes September 03, 2 015 10:22am Living Will Yes December 05, 2022 10:49pm Power of Pulmonary Physical Therapist Yes December 05 10:49pm Advance Directive Response Recorded Date/ Time Name of Medical Power of Pulmonary Physical Therapist brother Ying December 05, 2022 10:49pm Name of Medical Power of Pulmonary Physical Therapist Reynold Ortega December 28, 2022 10:52pm Advance Directives Yes September 03, 015 10:22am Living Will Yes December 28, 2022 10:52pm Power of Pulmonary Physical Therapist Yes December 28 10:52pm Healthcare Agents on File Name Relationship Healthcare Agent Relationshi p Communication Reynold Mtahias Alternate Health Care Agent Healthcare Agents on [...] Date/ Time Name of Medical Power of Pulmonary Physical Therapist brother Ying December 05, 2022 9:49pm Name of Medical Power of Pulmonary Physical Therapist Reynold Ortega December 28, 2022 9:52pm Advance Directives Yes September 03, 2 015 9:22am Living Will Yes December 28, 2022 9:52pm Power of Pulmonary Physical Therapist Yes December 28 9:52pm Advance Directive Response Recorded Date/ Time Name of Medical Power of Pulmonary Physical Therapist Reynold Ortega December 28, 2022 9:52pm Advance Directives Yes September 03, 015 9:22am Living Will Yes December 28, 2022 9:52pm Power of Pulmonary Physical Therapist Yes December 28 9:52pm Healthcare Agents on [...] Date/ Time Name of Medical Power of Pulmonary Physical Therapist ON FILE, POA ORLANDO OLSON AND NEPHDEBORAH OLSON May 14, 2023 4:06pm Advance Directives Yes September 03, 2 015 9:22am Living Will Yes May 14, 023 4:06pm Power of Pulmonary Physical Therapist Yes May 14, 2023 4:06pm Healthcare Agents on File Name Relationship Healthcare Agent Relationshi p Communication Reynold Olguin First Alternate Health Care Agent Advance Directive Response Recorded Date/ Time Name of Medical Power of Pulmonary Physical Therapist Reynold Olson July 05, 2023 11:53am Advance Directives Yes September 03, 2 015 9:22am Living Will Yes July 05, 2 024 11:53am Power of Pulmonary Physical Therapist Yes July 05, 2023 11:53am Name of Medical Power of Pulmonary Physical Therapist ON FILE, POA ORLANDO OLSON AND NEPHDEBORAH [...] Relationship Healthcare Agent Relationshi p Communication Reynold aMthias Alternate Health Care Agent Healthcare Agents on [...] Agent Advance Directive Response Recorded Date/ Time Do you have a Healthcare Power of Pulmonary Physical Therapist? Yes November 14, 2024 11:36pm Advance Directives Yes August 22 9:57am Healthcare Agents on File Name Relationship Healthcare Agent Relationshi p Communication Reynold Mathias Alternate Health Care Agent Hospital Course * Yemi South MD - 09/09/2019 11:25 AM EDT Discharge Summary Shannon Olson : 1955 ADMIT DATE: 09/05/2019 DISCHARGE DATE: 09/09/2019 PRIMARY CARE PHYSICIAN: Miguel Calzada VISIT STATUS: Admission CODE STATUS: Full [...] cardiac catheterization because of abnormal stress echo. LANDSC[employer]INTENANCE [employer]NS[employer] stent placement of RCA. Postprocedure has remained [...] DISCHARGE MEDICATIONS: Shannon Olson Home Medication Instructions LUIZ:[id number] Printed on:09/09/19 112 Medication Information amiodarone (CORDARONE) 200 MG tablet [...] Complexity: follow up within 7-14 calendar days (33095) [] Severe Complexity: follow up within 7 calendar days (97747) FOLLOW UP TESTING, PENDING RESULTS OR REFERRALS AT TRANSITIONAL CARE VISIT: [] Yes [] No PENDING STUDIES: No DISPOSITION: Home FACILITY/HOME CARE AGENCY NAME: Follow up with Miguel Calzada [address] [place] [id number] Zoie Gonzales MD [address] [place] [id number] On 09/14/2019 Time: 1:30 pm with [facility] visit. Call PCP for appointment in [...] most local grocery stores, pharmacies, and chain [employer]st[employer]. ? If you have any questions about [...] most local grocery stores, pharmacies, and chain [employer]st[employer]. ? If you have any questions about your diet or nutrition, call the hospital and ask for the dietitian. ? Cardiac diet * Additional Instructions* Serina Mason RN - 09/15/2019 Please get BMP in 1 week. * Attachments The following attachments cannot be sent through Care Everywhere. * Chest Pain (Bruneian) documented in this encounter History of Present [...] Abdul RCP - 09/08/2019 9:29 PM EDT [facility] Respiratory Care Department Progress Note Patient was [...] mind regarding wearing PAP to hit their "call light" or inform their nurse to contact Respiratory. [...] EDT Hospitalist Progress Note 09/08/2019 2:39 PM [phone]: Please page me for patient care issues. [phone]: Please page [facility] Hospitalist for any issues. Subjective: Admit Date: 09/05/2019 PCP: Miguel Calzada Room#: 130/[id number] Interval History: Patient seen and examined, I [...] (36.1 C) (Temporal) Resp 18 Ht 6' 2" (1.88 m) Wt 264lb 6.2 oz (119.9 [...] of Hospitalist Medicine Inpatient Medical Services PAGER: [phone] * Zoie Gonzales MD - 09/08/2019 11:20 [...] area which is where he had prior SC. He did have some CP, so Dr. Gonzales recommends [facility] for further eval. D/w pt and he [...] or percutaneous valve procedure (select one): [facility] : I Frailty Score : 3 [place] Protocol :No GFR>60 2. AFib RVR s/p BELLA/DCC 09/07/19 - Stable. In SB-SR. Symptoms improved. On Amio 200mg daily for rhythm control, BB for rate control, and apixaban for OAC. 3. Dispo - If LHC shows no obstructive CAD, then likely recommend discharge home later today. Will await [facility] findings. D/w Dr. Gonzales. Patient seen and [...] EDT Hospitalist Progress Note 09/07/2019 10:54 AM [phone]: Please page me for patient care issues. [phone]: Please page [facility] night Hospitalist for any issues. Subjective: [...] (36.3 C) (Temporal) Resp 20 Ht 6' 2" (1.88 m) Wt 262 lb 14.4 oz [...] of Hospitalist Medicine Inpatient Medical Services PAGER: [phone] * Yemi South MD - 09/06/2019 2:43 PM EDT Hospitalist Progress Note 09/06/2019 2:43 PM [phone]: Please page me for patient care issues. [phone]: Please page [facility] night Hospitalist for any issues. Subjective: [...] (36.8 C) (Temporal) Resp 18 Ht 6' 2" (1.88 m) Wt 260 lb 3.2 oz [...] of Hospitalist Medicine Inpatient Medical Services PAGER: [phone] * Brandi Gupta RD, LD - 09/06/2019 [...] and his moved out in May and "Lorraine been doing really well since then because she eats a lot of pastries and desserts and if there is none of that in the house Im not tempted to eat it", discussed with pt current diet restrictions and [...] (no supplement ordered) Anthropometric Measures: Ht: 6' 2" (188 cm) Current Body Wt: 260 lb 2.3 oz (118 kg)(no method 09/05) Admission Body Wt: 255 lb (115.7 kg)(stated 09/04) Usual Body Wt: (300-305# per pt report) per EPIC: 294# on 10/10, 280# on 06/05 [place] Body Wt: 190 lb 7.6 oz (86.4 kg), % [place] Body 137% BMI Classification: BMI 30.0 - [...] communicates understanding. documented in this encounter* Serina Mason RN - 09/15/2019 12:51 PM EDT Sent perfect [...] Procedures CT Chest WO Contrast Quan Green, TILE AND MARBLE SETTER - EXTRACTOR AND WRINGER OPERATOR [address] [place] [id number] Status Reason Specialty Diagnoses / Procedures Re ferred By Contact Referred To Contact Open Pulmonary Disease Diagnoses Pneumonia due to COVID-19 virus Interstitial lung disease (HCC) Pneumoconiosis (HCC) Procedures Full PFT Study With Bronchodilator Tree Gonzales MD [address] [place] [address] Status Reason Specialty Diagnoses / Procedures Referred By Contact Referred To Contact In Progress Specialty Services Required Cardiac Rehabilitation Diagnoses Coronary artery disease involving pauma coronary artery of pauma heart without angina pectoris Zoie Gonzales MD [address] [place] [address] Ach 95 [facility] Card Rehab 95 [place] [address] Scheduling Instructions [facility] 95 [facility] [address] [place] [address] Status Reason Specialty Diagnoses / Procedures Referred By Contact Referred To Contact Open Specialty Services Required Cardiac Rehabilitation Diagnoses 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 Milagro Jaimes, TILE AND MARBLE SETTER - EXTRACTOR AND WRINGER OPERATOR 95 [facility] 300 [place] [address] Specialty Diagnoses / Procedures Referred By Contac t Referred To Contact Diagnoses COPD with asthma (HCC) Procedures Full PFT Study With Bronchodilator Tree Gonzales MD 75 [facility]. [address] [place] [address] Referral ID Status Reason Start Date Expiration Date Visits Re quested Visits Authorized [id number] Closed 10/23/2021 10/23/2022 1 1 Specialty Diagnoses / Procedures Referred By Contac t Referred To Contact Cardiology Diagnoses Localized edema Procedures Transthoracic echocardiogram (TTE) complete with contrast, bubble, strain, and 3D PRN DC ECHO TTHRC R-T 2D W/WOM-MODE COMPL SPEC&COLR D DC TTE W OR WO FOL WCON,Samra Mojica, TILE AND MARBLE SETTER - EXTRACTOR AND WRINGER OPERATOR 95 [place] [address] Referral ID Status Reason Start Date Expiration Date Visits Requested Visits Authorized [id number] Pending Review Perform Procedure 09/28/2022 03/27/2023 1 1 Specialty Diagnoses / Procedures Referred By Contac t Referred To Contact Sleep Medicine Diagnoses HIPOLITO (obstructive sleep apnea) Procedures Polysomnography Chris Boyce MD 75 [facility] [address] [place] [address] [facility] Sleep Lab [address] [place] [address] Referral ID Status Reason Start Date Expiration Date V isits Requested Visits Authorized [id number] Authorized 11/11/2022 05/10/2023 1 1 Specialty Diagnoses / Procedures Referred By Dariusz laws Referred To Contact Cardiology Diagnoses Localized edema Procedures Transthoracic echocardiogram (TTE) complete with contrast, bubble, strain, and 3D PRN DC ECHO TTHRC R-T 2D W/WOM-MODE COMPL SPEC&COLR D DC TTE W OR WO FOL WCON,DOPPLER Samra Gonzalez, TILE AND MARBLE SETTER - EXTRACTOR AND WRINGER OPERATOR [address] [place] [address] Ach 95 [facility]In[facility] [address] [place] [address] Referral ID Status Reason Start Date Expiration Date V isits Requested Visits Authorized [id number] Closed Perform Procedure 09/28/2022 03/27/2023 1 1 Specialty Diagnoses / Procedures Referred By Dariusz laws Referred To Contact Carmen Thornton, TILE AND MARBLE SETTER - EXTRACTOR AND WRINGER OPERATOR [address] [facility] [address] [place] [address] Referral ID Status Reason Start Date Expiration Date V isits Requested Visits Authorized [id number] Authorized 11/30/2022 02/29/2024 1 1 Chief Complaint [...] Diarrhea Dysphagia Chief Complaint SEBACEOUS CYST SCALP \\infected req RC DRESSING CHANGE 4 MO FU [...] Atrial fibrillation June 20, 2024 7 :59am Chief Complaint Admit Date NEED LAB ORDER September 11, 2024 8:2 5am L FOOT, GOUT November 14, 2024 11:1 3pm Chief Complaint Admit Date L FOOT, GOUT November 14, 2024 11:1 3pm Chief Complaint Admit Date L FOOT, GOUT November 14, 2024 11:1 3pm UNILATERAL PRIMARY OSTEOARTHRITIS,LT KNE E,THYROID January 29, 2025 4:29pm Additional Source Comments (unrecognized sect ion and content) No Status Records FoundNo Status Records FoundNo Status Records FoundNo Status Records FoundNo Status Records FoundNo Status Records Found INFORMATION SOURCE (unrecogn ized section and content) DATE CREATED AUTHOR 04/21/2019 [facility] ([place]) DATE CREATED AUTHOR AUTHOR'S ORGANIZ ATION 09/20/2019 [facility] DATE CREATED AUTHOR AUTHOR'S ORGANIZ ATION 07/06/2021 [facility] DATE CREATED AUTHOR AUTHOR'S ORGANIZ ATION [facility]20[facility] DATE CREATED AUTHOR AUTHOR'S ORGANIZ ATION 02/26/2025 [facility] DATE CREATED AUTHOR AUTHOR'S ORGANIZ ATION 03/09/2025 [facility] Reason for Visit (unrecogniz ed section and content) Reason Comments Chest Pain Pt brought in by EMS for c/o chest tightness. Pt reports the pain started last night but went away and came back again this am. Pt received 324mg ASA, nitro SL and O2 en route by EMS. Pt reports significant cardiac history including SC in 1999, 18 previous stents and prior cardioversion. Reason Comments Chest Pain Reason Comments Edema Shortness of breath. Lower ext edema following shoulder surgery Reason Comments Follow-up Specialty Diagnoses / Procedures Referred By Contac t Referred To Contact Cardiology Diagnoses Localized edema Procedures Transthoracic echocardiogram (TTE) complete with contrast, bubble, strain, and 3D PRN DC ECHO TTHRC R-T 2D W/WOM-MODE COMPL SPEC&COLR D DC TTE W OR WO FOL WCMOR,Samra Mojica, TILE AND MARBLE SETTER - EXTRACTOR AND WRINGER OPERATOR [address] [address] [facility] 95 [facility] Non-Invasive Cardiology 95 [place] [address] Referral ID Status Reason Start Date Expiration Date V isits Requested Visits Authorized [id number] Closed Perform Procedure 09/28/2022 03/27/2023 1 1 Reason Comments Follow-up Reason Comments Sleep Apnea Results Specialty Diagnoses / Procedures Referred By Contac t Referred To Contact Diagnoses Chest pain NSTEMI Procedures . Terry Drew MD [address] [address] [facility] [address] [place] [address] Referral ID Status Reason Start Date Expiration Date Visits Re quested Visits Authorized [id number] 1 1 Reason Onset Date Comments hematoma 01/01/2023 Reason Comments Med Refill Reason Onset Date Comments symptoms 01/26/2023 Reason Comments Shortness of Breath A lot Chest Pain May be due to acid r eflux Dizziness Once in awhile Reason Onset Date Comments Med Management 02/09/2023 Specialty Diagnoses / Procedures Referred By Contac t Referred To Contact Diagnoses 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) 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) [I25.118] Procedures Left heart cath / coronary angiography Zoie Gonzales MD [address] [address] [facility] Cardiac Cath/Ep Lab [address] [place] [address] Referral ID Status Reason Start Date Expiration Date Visits Re quested Visits Authorized [id number] 1 1 Reason Comments Follow-up Shortness of [...] Referred By Dariusz laws Referred To Contact Sleep Medicine Diagnoses HIPOLITO (obstructive sleep apnea) Procedures Polysomnography Chris Boyce MD [address] [place] [address] [address] [place] [address] [facility] Sleep Lab [address] [place] [address] Referral ID Status Reason Start Date Expiration Date Visits Re quested Visits Authorized [id number] Closed 11/11/2022 05/10/2023 1 1 Reason Onset [...] 10/18/2024 Reason Onset Date Comments Orders 09/28/2024 Reason Onset Date Comments BPCI Outreach 11/17/2024 Reason Onset Date Comments Med Refill 11/30/2024 Reason Comments Annual Exam Reason Onset Date Comments Cardiac Clearance 01/18/2025 Ordered Prescriptions (unrec ognized section and content) [...] 200 mg, Oral, DAILY, First dose on Wed03/17/21 [...] home)2029 (Given - Provider: Rj Shaw RN) 0840 (Given - Provider: Caleb Meeks RN)2099 (Due) minoxidil (LONITEN) tablet 5 mg 5 [...] dose. Formulary substitute f or Trelegy Ellipta 1353 (Not Given - Provider: Silva Hammond [...] Fluid Infusing) 0838 (Given - Provider: Caleb Meeks, JESUS)2100 (Due) spironolactone (ALDACTONE) tablet 25 mg 25 [...] - Reason: Other) 0837 (Given - Provider: Claeb Meeks RN) Continuous Medication Order 03/16/2021 03/17/2021 03/18/2021 0.9 % sodium chloride infusion IntraVENous, at 300 mL/hr, CONTINUOUS, Starting on Wed03/17/21 at 0800, Run For 1 hour and than reduce to KVO, Pre-Procedure(Cath) 0800 (Due) 0.9 % sodium chloride infusion IntraVENous, at 100 mL/hr, CONTINUOUS, Starting on Wed03/17/21 at 1215 1309 (New Bag - Provider: Silva Hammond RN - Comment: infusing from laboratory immunologist)2034 (New Bag - Provider: Rj Shaw RN) [...] Oral, EVERY 4 HOURS PRN, Starting on Wed12/01/21 at 1127, Until Discontinued, Pain Mild (1-3), [...] RN)2009 (Given - Provider: Noe Gayle RN) 09 (Given - Provider: Silva Hammond RN)2003 (Given - Provider: Audelia Wilcox RN) 926 (Given - Provider: Nakita Zaragoza RN) aspirin chewable tablet 81 mg (CANCELED) 81 mg, Oral, Daily, First dose on 12/06/22 at 1045 1101 (Given - Provider: Brandi Lugo RN) 901 (Given - Provider: Silva Hammnod RN) atorvastatin (Lipitor) tablet 80 mg (CANCELED) 80 mg, Oral, Daily, First dose on 12/06/22 at 2100 2009 (Given - Provider: Noe Gayle RN) cholecalciferol (Vitamin D-3) tablet 800 Units 800 Units, Oral, Daily, First dose on 12/06/22 at 1045 1101 (Given - Provider: Brandi Lugo RN) 09 (Given - Provider: Silva Hammond RN) 926 [...] 1101 (Given - Provider: Brandi Lugo RN) 09 (Given - Provider: Silva Hammond RN) 926 [...] 901 (Given - Provider: Silva Hammond RN) minoxidil (Loniten) tablet 5 mg 5 mg, Oral, 2 times daily, First dose on 12/06/22 at 1045 1101 (Given - Provider: Brandi Lugo RN)2009 (Given - Provider: Noe Gayle RN) 09 (Given - Provider: Silva Hamomnd, JESUS)2003 (Given - Provider: Audelia Wilcox RN) 927 (Given - Provider: Nakita Zaragoza, JESUS) rosuvastatin (Crestor) tablet 40 mg 40 [...] RN)2012 (Given - Provider: Noe Gayle RN) 09 (Given - Provider: Silva Hammond RN)2005 (Given - Provider: Audelia Wilcox RN) 09 (Given - Provider: Nakita Zaragoza RN) spironolactone [...] Manuel Edgar MD)2003 (Given - Provider: Audelia Wilcox, JESUS) 926 (Given - Provider: Nakita Zaragoza RN) torsemide (Demadex) tablet 10 mg (CANCELED) 10 mg, Oral, Daily, First dose on 12/06/22 at 1045 1101 (Given - Provider: Brandi Lugo RN) 0819 (Held by provider - Provider: Manuel Edgar MD - Reason: Other)0900 (Dose Auto Held - Provider: Manuel Edgar MD)164 (Unheld by provider - Provider: Manuel Edgar MD) torsemide (Demadex) tablet 20 mg 20 mg, Oral, Daily, First dose (after last modification) on Wed12/08/22 at 0900, Hold if renal function is worse. 09 (Given - Provider: Nakita Zaragoza RN) PRN Medication Order 12/06/2022 12/07/2022 12/08/2022 acetaminophen [...] Gayle RN) 2003 (Given - Provider: Audelia Brenden, RN) ipratropium-albuterol (Duo-Neb) 0.5-2.5 mg/3 mL nebulizer [...] IV line use, Starting on Wed12/06/22 at 1032, For Line Patency: Peripheral IV [...] at 0900 0816 (Given - Provider: Gia Begue, RN) amLODIPine (Norvasc) tablet 5 mg 5 mg, Oral, 2 times daily, First dose on Wed09/14/24 at 2100 2137 (Given - Provider: Abraham Jenkins, JESUS) 0816 (Given - Provider: Gia Mcmillan, JESUS) apixaban (Eliquis) tablet 5 mg 5 mg, Oral, 2 times daily, First dose on Wed09/15/24 at 0900, Anticoagulant 0816 (Given - Provider: Gia Mcmillan RN) cholecalciferol (Vitamin D-3) tablet 1,000 Units 1,000 Units, Oral, Daily, First dose on Wed09/14/24 at 1615 1635 (Given - Provider: Gia Mcmillan RN) 0816 (Given - Provider: Gia Mcmillan, JESUS) clopidogrel (Plavix) tablet 300 mg (COMPLETED)(Linked Group 1) 300 mg, Oral, Once, On Wed09/14/24 at 1500, For 1 dose 1422 (Given - Provider: Chrissy Rivas RN) clopidogrel (Plavix) tablet 75 mg(Linked Group 1) 75 mg, Oral, Daily, First dose on Wed09/15/24 at 0900, For 365 days 0816 (Given - Provider: Gia Mcmillan, JESUS) isosorbide mononitrate ER (Imdur) 24 hr tablet 120 mg 120 mg, Oral, Daily, First dose on Wed09/14/24 at 1645, Do not chew or crush ER tablets; may be divided in half. Due to insoluble matrix embedding, ER tablets that are scored may be split. 1635 (Given - Provider: Gia Mcmillan RN) 0817 (Given - Provider: Gia Mcmillan, JESUS) metoprolol tartrate (Lopressor) tablet 50 mg 50 mg, Oral, 2 times daily, First dose on Wed09/14/24 at 2100, Hold for HR < 60, BP < 100 2099 (Not Given - Provider: Abraham Jenkins, JESUS - Reason: Contraindicated - Comment: HR 57) 0816 (Given - Provider: Gia Mcmillan, JESUS) prochlorperazine (Compazine) injection 5 mg (COMPLETED) 5 mg, IntraVENous, Once, On Nicci 4/24/25 at 1845, For 1 dose, Give if unable to tolerate po. 2137 (Given - Provider: Abraham Jenkins, RN) ranolazine (Ranexa) 12 hr tablet 500 mg 500 mg, Oral, 2 times daily, First dose on Wed09/14/24 at 2100, Do not crush, chew, or split. 2136 (Given - Provider: Abraham Jenkins, RN) 0817 (Given - Provider: Gia Mcmillan, RN) rosuvastatin (Crestor) tablet 40 mg 40 mg, Oral, Daily, First dose on Wed09/14/24 at 1615 1635 (Given - Provider: Gia [...] Administer over 1 Hours, Continuous, Starting on Wed09/14/24 at 0915, For 1 hour, Preprocedure, Administer for 1 hour at calculated rate then reduce to KVO if procedure is delayed 0931 (New Bag - Provider: Fide Dejesus, JESUS)1018 (Stopped - Provider: Fide Dejesus RN) sodium chloride 0.9 % infusion () 125 mL/hr, IntraVENous, Continuous, Starting on Wed09/14/24 at 1430, For 6 hours, Recovery & [...] 1256, Intraprocedure 1256 (Given - Provider: Kelsey Richardson, RN) fentaNYL (Sublimaze) injection (CANCELED) IntraVENous, As needed, Starting on Nicci 09/14/24 at 1245, Intraprocedure 1245 (Given - Provider: Kelsey Richardson, RN)1337 (Given - Provider: Dwayne Perkins, JESUS) heparin injection (CANCELED) IntraVENous, As needed, Starting on Nicci 09/14/24 at 1247, Intraprocedure 1247 (Given - Provider: Kelsey Richardson, JESUS)1259 (Given - Provider: Kelsey Richardson, RN)1344 (Given - Provider: Dwayne Perkins RN) iopamidol (Isovue-300) 61 % injection (CANCELED) [...] 1245, Intraprocedure 1245 (Given - Provider: Kelsey Richardson RN) nitroglycerin (Nitrostat) SL tablet 0.4 mg 0.4 mg, SubLINGual, Every 5 min PRN, chest pain, Starting on Nicci 09/14/24 at 1559, May administer up to 3 doses per episode. ondansetron (Zofran) injection (CANCELED) As needed, Starting on Nicci 09/14/24 at 1332, Intraprocedure 1332 (Given - Provider: Dwayne Perkins, JESUS) Linked Groups Order Group 1: clopidogrel (Plavix) tablet 300 mg (COMPLETED)Jump to med 300 mg, Oral, Once, On Nicci 09/14/24 at 1500, For 1 dose And clopidogrel (Plavix) tablet 75 mgJump to med 75 mg, Oral, Daily, First dose on Wed09/15/24 at 0900, For 365 days Care Teams (unrecognized sec tion and content) Airplane Cover Maker Relationship Specialty Start Date End Date Weston Vinayak Cosby [address] [place] [place] [address] PCP - General Family Medicine 03/20/21 Airplane Cover Maker Relationship Specialty Start Date End Date WestonVinayak valdivia [address] [place] [address] PCP - General Family Medicine 03/20/21 Airplane Cover Maker Relationship Specialty Start Date End Date WestonVinayak validvia [address] [address] PCP - General Family Medicine 03/20/21 Team Status: Active Member Role Status Dates Dr. Marino Suarez MD Family Provider Active No Primary Care Physician Primary Care Provider Active Team Status: Inactive Member Role Status Dates Dr. Vinayak Ontiveros MD Primary Care Provider, Referring Provider Active Chrissy Flores MEDICAL ART THERAPIST, MEDICAL ART THERAPIST-C Attending Provider Active Team Status: Inactive Member [...] Ferrell MD Attending Provider, Referring Provider Active Airplane Cover Maker Relationship Specialty Start Date End Date Finn Ferrell MD [address] [facility] [address] [place] [address] PCP - General Family Medicine 09/28/22 Team Status: Inactive Member Role Status Dates No Primary Care Physician Primary Care Provider Active Dr. Finn Ferrell MD Attending Provider, Referring Provider Active Team Status: Active Member Role Status Dates No Primary Care Physician Primary Care Provider Active BI SHOOK Attending Provider, Referring Provid er Active Airplane Cover Maker Relationship Specialty Start Date End Date Finn Ferrell MD [address] [facility] [address] [place] [address] PCP - General Family Medicine 09/28/22 Team [...] BI BERNAL Attending Provider, Referring Provider Active Airplane Cover Maker Relationship Specialty Start Date End Date Finn Ferrell MD [address] [place] [address] PCP - General Family Medicine 09/28/22 Airplane Cover Maker Relationship Specialty Start Date End Date Finn Ferrell MD [address] [place] [address] PCP - General Family Medicine 09/28/22 Team Status: Inactive Member Role Status Dates Dr. Finn Ferrell MD Primary Care Provider Active Adrianna Royal MD Attending Provider Active Airplane Cover Maker Relationship Specialty Start Date End Date Finn Ferrell MD [address] [place] [address] PCP - General Family Medicine 09/28/22 Airplane Cover Maker Relationship Specialty Start Date End Date Finn Ferrell MD [address] [place] [address] PCP - General Family Medicine 09/28/22 Team Status: Active Member Role Status Dates Dr. Finn Ferrell MD Primary Care Provider Active Dr. Kraig Bautista DO Emergency Provider Active Dr. Henrietta Quinonez MD Attending Provider Active Team Status: Inactive Member Role Status Dates Dr. Finn Ferrell MD Primary Care Provider Active Dr. Kraig Bautista DO Emergency Provider Active Airplane Cover Maker Relationship Specialty Start Date End Date Finn Ferrell MD [address] [place] [address] PCP - General Family Medicine 09/28/22 Airplane Cover Maker Relationship Specialty Start Date End Date Finn Ferrell MD [address] [facility] [address] [place] [address] PCP - General Family Medicine 09/28/22 Airplane Cover Maker Relationship Specialty Start Date End Date Finn Ferrell MD [address] [facility] [address] [place] [address] PCP - General Family Medicine 09/28/22 Team [...] Dr. George Pond DO Emergency Provider Active Airplane Cover Maker Relationship Specialty Start Date End Date Finn Ferrell MD [address] [facility] [address] [place] [address] PCP - General Family Medicine 09/28/22 Airplane Cover Maker Relationship Specialty Start Date End Date Finn Ferrell MD [address] [facility] [address] [place] [address] PCP - General Family Medicine 09/28/22 Airplane Cover Maker Relationship Specialty Start Date End Date Finn Ferrell MD [address] [facility] [address] [place] [address] PCP - General Family Medicine 09/28/22 Team Status: Inactive Member Role Status Dates Dr. Finn Ferrell MD Primary Care Provider Active DORA HUOGH Attending Provider, Referring Provide r Active Team Status: Inactive Member Role Status Dates Dr. Finn Ferrell MD Primary Care Provider Active Dr. George Pond DO Attending Provider, Emergency Pr ovider Active Airplane Cover Maker Relationship Specialty Start Date End Date Finn Ferrell MD [address] [place] [address] PCP - General Family Medicine 09/28/22 Team Status: Inactive Member Role Status Dates Dr. Finn Ferrell MD Primary Care Pr ovider, Attending Provider, Referring Provider Active Airplane Cover Maker Relationship Specialty Start Date End Date Finn Ferrell MD [address] [place] [address] PCP - General Family Medicine 09/28/22 Airplane Cover Maker Relationship Specialty Start Date End Date Finn Ferrell MD [address] [place] [address] PCP - General Family Medicine 09/28/22 Airplane Cover Maker Relationship Specialty Start Date End Date Finn Ferrell MD [address] [place] [address] PCP - General Family Medicine 09/28/22 Airplane Cover Maker Relationship Specialty Start Date End Date Finn Ferrell MD [address] [place] [address] PCP - General Family Medicine 09/28/22 Airplane Cover Maker Relationship Specialty Start Date End Date Finn Ferrell MD [address] [place] [address] PCP - General Family Medicine 09/28/22 Team [...] URBAN Attending Provider, Referring Provide r Active Airplane Cover Maker Relationship Specialty Start Date End Date Finn Ferrell MD [address] [place] [address] PCP - General Family Medicine 09/28/22 Airplane Cover Maker Relationship Specialty Start Date End Date Finn Ferrell MD [address] [place] [address] PCP - General Family Medicine 09/28/22 Airplane Cover Maker Relationship Specialty Start Date End Date Finn Ferrell MD [address] [place] [address] PCP - General Family Medicine 09/28/22 Team [...] Provider Active VINAY DAY Attending Provider Active Airplane Cover Maker Relationship Specialty Start Date End Date Finn Ferrell MD [address] [place] [address] PCP - General Family Medicine 09/28/22 Team Status: Inactive Member Role Status Dates Dr. Finn Ferrell MD Primary Care Provider Active Dr. Reynaldo Gaviria DO Emergency Provider Active Team Status: Inactive Member Role Status Dates Dr. Finn Ferrell MD Primary Care Provider, Referr ing Provider Active Dr. Gibran Reno MD Attending Provider Active Airplane Cover Maker Relationship Specialty Start Date End Date Finn Ferrell MD [address] [place] [address] PCP - General Family Medicine 09/28/22 Team [...] Primary Care Provider, Attend ing Provider Active Airplane Cover Maker Relationship Specialty Start Date End Date Finn Ferrell MD [address] [place] [address] PCP - General Family Medicine 09/28/22 Airplane Cover Maker Relationship Specialty Start Date End Date Finn Ferrell MD [address] [place] [address] PCP - General Family Medicine 09/28/22 Airplane Cover Maker Relationship Specialty Start Date End Date Finn Ferrell MD [address] [place] [address] PCP - General Family Medicine 09/28/22 Airplane Cover Maker Relationship Specialty Start Date End Date Finn Ferrell MD [address] [place] [address] PCP - General Family Medicine 09/28/22 Airplane Cover Maker Relationship Specialty Start Date End Date Vinayak Ontiveros [address] [place] [id number] PCP - General 03/20/21 Airplane Cover Maker Relationship Specialty Start Date End Date Finn Ferrell MD [address] [place] [address] PCP - General Family Medicine 09/28/22 Airplane Cover Maker Relationship Specialty Start Date End Date Finn Ferrell MD [address] [place] [address] PCP - General Family Medicine 09/28/22 Airplane Cover Maker Relationship Specialty Start Date End Date Finn Ferrell MD [address] [place] [address] PCP - General Family Medicine 09/28/22 Airplane Cover Maker Relationship Specialty Start Date End Date Finn Ferrell MD [address] [place] [address] PCP - General Family Medicine 09/28/22 Airplane Cover Maker Relationship Specialty Start Date End Date Finn Ferrell MD [address] [place] [address] PCP - General Family Medicine 09/28/22 Airplane Cover Maker Relationship Specialty Start Date End Date Finn Ferrell MD [address] [place] [address] PCP - General Family Medicine 09/28/22 Team Status: Inactive Member Role Status Dates Dr. Finn Ferrell MD Primary Care Provider Active Start: June 20, 2024 End: June 20, 2024 FILIPE GREGORIO Attending Provider Active Start : June 20, 2024 End: June 20, 2024 FLIIPE GREGORIO Referring Provider Active Start : June [...] August 31, 2024 End: August 31, 2024 Airplane Cover Maker Relationship Specialty Start Date End Date Finn Ferrell MD [address] [facility] [address] [place] [phone] PCP - General Family Medicine 09/28/22 Airplane Cover Maker Relationship Specialty Start Date End Date Finn Ferrell MD [address] [facility] [address] [place] [phone] PCP - General Family Medicine 09/28/22 Airplane Cover Maker Relationship Specialty Start Date End Date Finn Ferrell MD [address] [facility] [address] [place] [phone] PCP - General Family Medicine 09/28/22 Airplane Cover Maker Relationship Specialty Start Date End Date Finn Ferrell MD [address] [place] [address] PCP - General Family Medicine 09/28/22 Bernice Zarate, RN Registered Nurse Applique Cutter Manager 09/18/24 Airplane Cover Maker Relationship Specialty Start Date End Date Finn Ferrell MD [address] [place] [address] PCP - General Family Medicine 09/28/22 Bernice Zarate, RN Registered Nurse Applique Cutter Manager 09/18/24 Airplane Cover Maker Relationship Specialty Start Date End Date Finn Ferrell MD [address] [place] [address] PCP - General Family Medicine 09/28/22 Bernice Zarate, RN Registered Nurse Applique Cutter Manager 09/18/24 Airplane Cover Maker Relationship Specialty Start Date End Date Finn Ferrell MD [address] [place] [address] PCP - General Family Medicine 09/28/22 Bernice Zarate, RN Registered Nurse Applique Cutter Manager 09/18/24 Airplane Cover Maker Relationship Specialty Start Date End Date Finn Ferrell MD [address] [place] [address] PCP - General Family Medicine 09/28/22 Bernice Zarate, RN Registered Nurse Applique Cutter Manager 09/18/24 Airplane Cover Maker Relationship Specialty Start Date End Date Finn Ferrell MD [address] [place] [address] PCP - General Family Medicine 09/28/22 Bernice Zarate, JESUS Registered Nurse Applique Cutter Manager 09/18/24 Airplane Cover Maker Relationship Specialty Start Date End Date Finn Ferrell MD [address] [facility] [address] [place] [phone] PCP - General Family Medicine 09/28/22 Bernice Zarate, RN Registered Nurse Applique Cutter Manager 09/18/24 Airplane Cover Maker Relationship Specialty Start Date End Date Finn Ferrell MD [address] [place] [phone] PCP - General Family Medicine 09/28/22 Bernice Zarate, RN Registered Nurse Applique Cutter Manager 09/18/24 Team Status: Active Member Role Status Dates Dr. Finn Ferrell MD Primary Care Provider Active Team Status: Inactive Member Role Status Dates Dr. Finn Ferrell MD Primary Care Provider Active Start: September 11, 2024 End: September 11, 2024 DORA HOUGH Attending Provider Active Start : September 11, 2024 End: September 11, 2024 DORA HOUGH Referring Provider Active Start : September 11, 2024 End: September 11, 2024 Team Status: Inactive Member Role Status Dates Dr. Finn Ferrell MD Primary Care Provider Active Start: November 14, 2024 End: November 15, 2024 Dr. Cooper Francis DO Emergency Provider Active Start: November 14, 2024 End: November 15, 2024 Team Status: Active Member Role/Relationship Status Dates Dr. Finn Ferrell MD Primary Care Provider Active Team Status: Inactive Member Role/Relationship Status Dates Dr. Finn Ferrell MD Primary Care Provider Active Start: August 31, 2024 End: August 31, 2024 Dr. Finn Ferrell MD Attending Provider Active Start: August 31, 2024 End: August 31, 2024 Dr. Finn Ferrell MD Referring Provider Active Start: August 31, 2024 End: August 31, 2024 Team Status: Inactive Member Role/Relationship Status Dates Dr. Finn Ferrell MD Primary Care Provider Active Start: September 11, 2024 End: September 11, 2024 DORA HOUGH Attending Provider Active Start : September 11, 2024 End: September 11, 2024 DORA HOUGH Referring Provider Active Start : September 11, 2024 End: September 11, 2024 Team Status: Inactive Member Role/Relationship Status Dates Dr. Finn Ferrell MD Primary Care Provider Active Start: November 14, 2024 End: November 15, 2024 Dr. Cooper Francis DO Attending Provider Active Start: November 14, 2024 End: November 15, 2024 Dr. Cooper Francis DO Emergency Provider Active Start: November 14, 2024 End: November 15, 2024 Team Status: Inactive Member Role/Relationship Status Dates Dr. Finn Ferrell MD Primary Care Provider Active Start: November 15, 2024 End: November 15, 2024 Dr. Finn Ferrell MD Attending Provider Active Start: November 15, 2024 End: November 15, 2024 Dr. Finn Ferrell MD Referring Provider Active Start: November 15, 2024 End: November 15, 2024 Airplane Cover Maker Relationship Specialty Start Date End Date Finn Ferrell MD [address] [place] [phone] PCP - General Family Medicine 09/28/22 Bernice Zarate, RN Registered Nurse Applique Cutter Manager 09/18/24 Team Status: Inactive Member Role/Relationship Status Dates Dr. Finn Ferrell MD Primary Care Provider Active Start: November 14, 2024 End: November 15, 2024 Dr. Cooper Francis DO Attending Provider Active Start: November 14, 2024 End: November 15, 2024 Dr. Cooper Francis DO Emergency Provider Active Start: November 14, 2024 End: November 15, 2024 Team Status: Inactive Member Role/Relationship Status Dates Dr. Finn Ferrell MD Primary Care Provider Active Start: November 15, 2024 End: November 15, 2024 Dr. Finn Ferrell MD Attending Provider Active Start: November 15, 2024 End: November 15, 2024 Dr. Finn Ferrell MD Referring Provider Active Start: November 15, 2024 End: November 15, 2024 Team Status: Inactive Member Role/Relationship Status Dates Dr. Finn Ferrell MD Primary Care Provider Active Start: January 15, 2025 End: January 15, 2025 Dr. Finn Ferrell MD Attending Provider Active Start: January 15, 2025 End: January 15, 2025 Dr. Finn Ferrell MD Referring Provider Active Start: January 15, 2025 End: January 15, 2025 OSORIO Gomez SPAIN Other Provider Active Start: 2024 End: January 15, 2025 Team Status: Inactive Member Role/Relationship Status Dates Dr. Finn Ferrell MD Primary Care Provider Active Start: January 19, 2025 End: January 19, 2025 Dr. Finn Ferrell MD Attending Provider Active Start: January 19, 2025 End: January 19, 2025 Dr. Finn Ferrell MD Referring Provider Active Start: January 19, 2025 End: January 19, 2025 Team Status: Inactive Member Role/Relationship Status Dates Dr. Finn Ferrell MD Primary Care Provider Active Start: January 29, 2025 End: January 29, 2025 Dr. Finn Ferrell MD Attending Provider Active Start: January 29, 2025 End: January 29, 2025 Dr. Terry Figueroa MD Referring Provider Active Start: January 29, 2025 End: January 29, 2025 Dr. Terry Figueroa MD Other Provider Active Sta rt: January 29, 2025 End: January 29, 2025 Airplane Cover Maker Relationship Specialty Start Date End Date Finn Ferrell MD [address] [facility] [address] [place] [phone] PCP - General Family Medicine 09/28/22 Bernice Zarate, JESUS Registered Nurse Applique Cutter Manager 09/18/24 Airplane Cover Maker Relationship Specialty Start Date End Date Finn Ferrell MD [address] [place] [phone] PCP - General Family Medicine 09/28/22 Goals (unrecognized section and content) Goals may [...] BE BASED ON THE PRIMARY CLINICAL RECORDS. [facility]. provides no warranty or guarantee of the accuracy or completeness of information in this document.
[2025-03-13 21:36] LABS: Hematocrit 42.9 % (40-54); Hemoglobin 13.8 g/dL (13.0-16.5); Immature Granulocytes Count 0.040 X10^3/uL (0.0-0.0); Mean Corp Hgb Conc 32.2 g/dL (32-36); Mean Corpuscular Volume 94.9 fL (80-94); Mean Platelet Vol. 9.7 fl (6.2-12.0); NRBC Flagged by Analyzer 0 % (0-5); Platelet Count 282 K/mm3 (150-450); RBC Distribution Width CV 14.1 % (11.6-14.6); RBC Distribution Width SD 49.1 fl (35.1-43.9); Red Blood Count 4.52 M/mm3 (4.6-6.2); White Blood Count 8.0 K/mm3 (4.4-11.0)
[2025-03-13 22:02] LABS: AST(SGOT) 21 U/L (<=37); Alanine Aminotransfer ALT/SGPT 26 U/L (<=46); Albumin, Serum 4.4 g/dL (3.4-4.8); Alkaline Phosphatase 103 U/L (40-129); Anion Gap 12 (5-15); BUN 32 mg/dL (4-19); BUN/Creat Ratio 21.2 RATIO (10-20); Calcium,Total 9.6 mg/dL (7.6-11.0); Carbon Dioxide 22.8 mmol/L (21.0-32.0); Chloride 103 mmol/L (98-108); Globulin 2.9 g/dL (2.2-4.2); Glucose 100 mg/dL (70-99); Iron 68 ug/dL (65-175); Iron Binding Capacity,Total 296 ug/dL (250-450); Iron Binding Capacity,Unsat 228 ug/dL (228-428); Potassium 4.3 mmol/L (3.3-5.1); Vitamin B12 316 pg/mL (180-914); Vitamin D,25 Hydroxy 41.7 ng/mL (30-100)
[2025-03-13 23:06] LABS: FOLATES,SERUM (FOLIC ACID) 8.08 ng/mL (4.60-34.80)
[2025-03-13 23:10] LABS: Color, Urine Yellow (Yellow); Glucose, Dipstick Normal (Normal); Ketone-Dipstick Negative (Negative); Leukocyte Esterase-Dipstick Negative /ul (Negative); Nitrite-Dipstick Negative (Negative); Occult Blood-Urine Negative /ul (Negative); Protein-Dipstick Negative (Negative); Specific Gravity, Urine 1.015 (1.002-1.030); Urine Bilirubin Dipstick Negative (Negative)
== END | disposition home or self-care (01) ==
PROVIDERS: PCP Family Medicine; Visit Provider Family Medicine
DX: E55.9 Vitamin D deficiency, unspecified (principal); D64.9 Anemia, unspecified; I10 Essential (primary) hypertension
CPT/HCPCS: 36415; 80053; 81001; 82306; 82607; 82746; 83540; 83550; 85025

== ENCOUNTER 2025-04-02 06:56 | Observation (INO) | payer MEDICARE, OTHER, SELFPAY ==
--- NOTE | 2025-03-16 18:05 | PAT.ANESEVAL ---
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 When Was Last Pacemaker Check QUESTION #4 FULL TEXT: You/Your Family Experience fever (hyperthermia) with Anesthesia Last Oral Intake Last Oral intake: Last Oral Intake NPO since Meds taken in AM with sips of water? Meds patient instructed to take am of surgery PONV PONV - industrial sales engineer: PONV - industrial sales engineer Female No 03/05/25 09:27 HX of Motion Sickness Yes 03/05/25 09:27 HX of N/V After Surgery No 03/05/25 09:27 Non-Smoker Yes 03/05/25 09:27 Duration of Surgery greater Yes 03/05/25 09:27 than 60 minutes Number of Risk Factors 3 03/05/25 09:27 PONV Score Moderate Risk 03/05/25 09:27 Height & Weight Height & Weight: Anesthesia: Height & Weight Height 6 ft 2 in 11/14/24 23:14 Respiratory Assessment Respiratory Assessment - industrial sales engineer: Respiratory Tract Infection Hx - industrial sales engineer Hx Respiratory Tract Infection No 03/05/25 09:27 STOP Sleep Apnea STOP Sleep Apnea - industrial sales engineer: STOP Sleep Apnea - industrial sales engineer Hx Hypertension Yes 03/05/25 09:27 Hx Sleep Apnea Yes 03/05/25 09:27 CPAP Yes: non compliant 03/05/25 09:27 BIPAP No 03/05/25 09:27 Do you snore loudly (louder than talking or can be heard Do you often feel tired/ fatigued/ sleepy during daytime? Has anyone observed you stop breathing during sleep? STOP Results Positive 03/05/25 09:27 QUESTION #5 FULL TEXT : Do you snore loudly (louder than talking or can be heard through closed doors)? 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 Specify any problems Hx of Preganancy in last 3 N/A 03/05/25 09:27 Months Nurse Filling Out Transfusion NBUCHER 03/05/25 09:27 & Questions: Date: 03/05/25 03/05/25 09:27 Time: 09:35 03/05/25 09:27 Patient unable to answer at this time (ie. confused, unrespo /Reproduction History /Reproductive History - industrial sales engineer: /Reproductive Hx- industrial sales engineer Hx Now No 03/05/25 09:27 Gestational Age (in weeks): EDC: Hx Hx Para Hx Section SAB No 03/05/25 09:27 [facility] Medical History (Updated 03/16/25 @ 11:42 by Sofía Guerra) Gout DVT (deep venous thrombosis) History of hiatal hernia Left rotator cuff tear History of echocardiogram Anxiety Excessive bleeding PONV (postoperative nausea and vomiting) Sleep apnea History of stress test Wears glasses Depression High cholesterol Gastric reflux Difficulty swallowing Non-smoker COPD (chronic obstructive pulmonary disease) Shortness of breath on exertion Leg cramps History of edema Hypertension Cardiology follow-up encounter History of heart attack History of atrial fibrillation Chest pain Sensorineural hearing loss, bilateral Dysphagia Epidermal inclusion cyst NSVT (nonsustained ventricular tachycardia) Screening for malignant neoplasm of intestine Cholelithiasis with chronic cholecystitis COPD (chronic obstructive pulmonary disease) CAD (coronary artery disease) Atrial fibrillation severe degenerative arthritis of right hip Rheumatoid arthritis Obstructive sleep apnea syndrome history of ischemic stroke HTN (hypertension) Hyperlipidemia Esophageal reflux Coronary atherosclerosis of [place] coronary vessel Home Medications ?Medication ?Instructions ?Recorded ?Last Taken ?Type minoxidil 10 mg tablet 5 mg PO BID blood pressure 05/14/20 12/28/23 History nitroglycerin 0.4 mg sublingual 0.4 mg sublingual Q5-15M PRN cp 10/05/19 Unknown History tablet clopidogrel 75 mg tablet (Plavix) 75 mg PO DAILY 09/09/21 05/19/23 History apixaban 5 mg tablet (Eliquis) 5 mg PO BID 10/30/21 05/18/23 History isosorbide mononitrate 30 mg 60 mg PO DAILY 01/07/22 05/20/23 History tablet,extended release 24 hr metoprolol succinate 50 mg 25 mg PO DAILY 04/07/23 05/20/23 History tablet,extended release 24 hr torsemide 20 mg tablet 20 mg PO DAILY 04/07/23 05/19/23 History amiodarone 200 mg tablet 200 mg PO DAILY 05/20/23 05/20/23 History rosuvastatin 40 mg tablet 40 mg PO DAILY 03/26/24 Unknown History allopurinol 100 mg tablet 100 mg PO DAILY 03/05/25 Unknown History amlodipine 5 mg tablet 5 mg PO DAILY 03/05/25 Unknown History Allergy/AdvReac Type Severity Reaction Status Date / Time Penicillins Allergy Hives Verified 03/05/25 09:22 Family History Sister Cancer ovarian Diabetes Brother Diabetes Mother Heart disease Hypertension Father Prostate cancer Surgical History (Updated 03/05/25 @ 10:02 by Dena Ospina) History of right shoulder replacement History of hernia repair History of bilateral cataract extraction History of thrombectomy History of repair of rotator cuff History of carpal tunnel release of both wrists History of arthroscopic knee surgery S/P PTCA (percutaneous transluminal coronary angioplasty) Hx of cholecystectomy History of colonoscopy (~2014) History of esophagogastroduodenoscopy (EGD) (~2014) History of knee joint replacement History of total right hip arthroplasty History of inguinal hernia repair History of left shoulder replacement History of total left hip arthroplasty History of coronary angioplasty History of heart artery stent History of cardiac catheterization Social History household members: none Smoking Status: Never smoker alcohol intake: never substance use type: does not use Audit: Pertinent Findings Pertinent Findings EKG Perinent findings: June 20, 2024. Sinus bradycardia with occasional PVCs. Left bundle branch block. Compared to November, PVCs are new. Echo (EF%) pertinent findings: 02/07/2025. EF of 57%. Right ventricular size is normal. Right ventricular systolic function is normal. No significant valvular abnormalities. Heart catheterization pertinent findings: September 14, 2024. LAD with patent proximal to mid segment stent with mild in-stent restenosis. Circumflex with 95% mid segment stenosis. With 80% distal OM in-stent restenosis. RCA with 100% total occlusion of the mid segment. Distal vessel is filling via [id number] collaterals. No significant aortic stenosis. PCI/FLAKO to the mid left circumflex stenosis-0% residual stenosis postintervention. FLAKO to the first marginal lesion-0% residual stenosis postintervention. Consult pertinent findings: February 07, 2025. Dr. Ortega?cardiology. 1. Coronary artery disease in [place] arteries. Continue medical management. Improved symptoms. 2. Essential hypertension Additional pertinent findings: August 24, 2024. Holter monitor?predominant rhythm was sinus. 135 VE beats with a burden of less than 1%. Total of 2226 SVE beats with a burden of less than 1%. 1 occurrence of supraventricular tachycardia. Recommendation Anesthesia Recommendation Anesthesia recommendation: OPTIMIZED for anesthesia
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
[2025-04-02] VITALS (14 sets, daily range): BP systolic 110–176; BP diastolic 59–78; PULSE 61–79; RESP 16–18; TEMP 36.3–37; O2SAT 93–97; BMI 39.2
--- OUTSIDE RECORDS SUMMARY | 2025-04-02 06:35 | XMS RPT_ITS | CCD ---
Author Organization [facility] CliniSyvt Care Team Providers Care Excelsior Machine Operator Name Role Phone Miguel Calzada Primary Care Provider Marino Suarez Primary Care Provider [phone] Marino Suarez Primary Care Provider Vinayak Ontiveros Primary Care Provider [phone] Vinayak Ontiveros Primary Care Provider Dr. Terry Figueroa Referring Provider [phone] Dr. Terry Figueroa Other Provider FRANCE SPAIN Other Provider Dr. Irvin Kingston Attending Provider Vinayak Ontiveros Primary Care Provider [phone] Vinayak Ontiveros Primary Care Provider Dr. Vinayak Ontiveros Referring Provider Mark SMITH, APPLICATIONS PROGRAMMER-C Chrissy Cruz Attending Provider [phone] Dr. Finesse Vera Attending Provider [phone] Vinayak Ontiveros Primary Care Provider Dr. Vinayak Ontiveros Referring Provider Mark SMITH APPLICATIONS PROGRAMMER-C Chrissy Cruz Attending Provider [phone] Dr. Jeramie Knox Attending Provider [phone] Lc Chavez Referring Provider Dr. Finesse Vera Attending Provider [phone] Vinayak Ontiveros Primary Care Provider Dr. Vinayak Ontiveros Referring Provider Dr. Dwayne Bess Attending Provider Nurse, Surgery Attending Provider Unavailable Mark APPLICATIONS PROGRAMMER, APPLICATIONS PROGRAMMER-Steven Cruz Attending Provider Referred, Self Referring Provider [...] Care Provider Dr. Kraig Bautista Emergency Provider [phone] Dr. Henrietta Quinonez Attending Provider Dr. Finn Ferrell Primary Care Provider Dr. Finn Ferrell Referring Provider Dr. Dwayne Bess Attending Provider Dr. Dwayne Bess Other Provider Vinayak Ontiveros Primary Care Provider Desmond ALVARADO, Dr. Finn Miller Primary Care Provider [phone] JG DENT Attending Provider JG DENT Referring Provider Latrell ALVARADO, Dr. Martinez Attending Provider JG DENT Referring Provider Unavailable Desmond ALVARADO, Dr. Finn Miller Attending Provider Desmond ALVARADO, Dr. Finn Miller Referring Provider Bernice Zarate RN Unavailable Unavailable Desmond ALVARADO, Dr. Finn Miller Primary Care Provider FRANCE SPAIN Attending Provider FRANCE SPAIN Referring Provider Dr. Cooper Francis DO Emergency Provider Dr. Cooper Francis DO Attending Provider Desmond ALVARADO, Dr. Finn Miller Primary Care Provider Desmond ALVARADO, Dr. Finn Miller Attending Provider Desmond ALVARADO, Dr. Finn Miller Referring Provider OSORIO SPAIN Other Provider Dr. Terry Figueroa MD Referring Provider [phone] Carolina ALVARADO, Dr. Stewart Other Provider Tessa LEE, Bernice Unavailable Unavailable DOMINGUEZ ORTEGA Admitting Unavailable DOMINGUEZ ORTEGA Attending Unavailable FINN FERRELL Primary Care Unavailable FRANCE SPAIN Attending Unavailable FRANCE SPAIN Referring Unavailable FINN FERRELL Primary Care Unavailable FRANCE SPAIN Attending Unavailable DESMOND, FINN Primary Care Unavailable FRANCE SPAIN Attending Unavailable DESMOND, FINN Primary Care Unavailable FRANCE SPAIN Attending Unavailable FINN FERRELL Primary Care Unavailable DOMINGUEZ ORTEGA Attending Unavailable FINN FERRELL Primary Care Unavailable FRANCE SPAIN Attending Unavailable FINN FERRELL Primary Care Unavailable FRANCE SPAIN Attending Unavailable FINN FERRELL Primary Care Unavailable FRANCE SPAIN Attending Unavailable FRANCE SPAIN Referring Unavailable SCHFINN VAUGHN Primary Care Unavailable DORA, FRANCE Attending Unavailable FRANCE SPAIN Referring Unavailable SCHFINN VAUGHN Primary Care Unavailable SchFinn vaughn Primary Care Unavailable Cheryl APPLICATIONS PROGRAMMER, Jenniffer Attending Unavailable Cheryl APPLICATIONS PROGRAMMER, Jenniffer Referring Unavailable SchFinn vaughn Primary Care Unavailable SchFinn vaughn Attending Unavailable Finn Ferrell Primary Care Unavailable SchFinn vaughn Referring Unavailable Finn Ferrell Attending Unavailable Finn Ferrell Primary Care Unavailable Ronald Churchill Attending Unavailable Finn Ferrell Primary Care Unavailable Andre Rueda Attending Unavailable Finn Ferrell Primary Care Unavailable Cooper Francis Attending Unavailable Finn Ferrell Primary Care Unavailable Terry Figueroa Referring Unavailable Terry Figueroa Attending Unavailable Finn Ferrell Primary Care Unavailable SUKHJINDER CANO Referring Unavailable SUKHJINDER CANO Attending Unavailable Finn Ferrell Primary Care Unavailable RAINA CANOIN P Referring Unavailable SUKHJINDER CANO P Attending Unavailable Finn Ferrell Attending Unavailable Finn Ferrell Primary Care Unavailable Finn Ferrell Referring Unavailable Finn Ferrell Attending Unavailable Finn Ferrell Primary Care Unavailable Finn Ferrell Referring Unavailable SUKHJINDER CANO Consulting Unavailable Finn Ferrell Attending Unavailable Finn Ferrell Referring Unavailable Finn Ferrell Primary Care Unavailable Finn Ferrell Primary Care Unavailable Juan Sams Attending UnavailSUKHJINDER Rose Referring Unavailable Finn Ferrell Primary Care Unavailable Finn Ferrell Referring Unavailable Finn Ferrell Attending Unavailable Finn Ferrell Attending Unavailable Terry Figueroa Referring Unavailable Terry Figueroa Consulting Unavailable Finn Ferrell Primary Care Unavailable Finn Ferrell Attending Unavailable Finn Ferrell Primary Care Unavailable Allergies Allergy Classification Reported Allergen(s) Allergy Type Date of Onset Reaction(s) Facility Penicillins (antibiotic) (2 sources) Penicillins Drug Allergy 6 [facility] (11 sources) Penicillins Propensity to adverse reactions to drug 6 [place], [place] (20 sources) Penicillins Allergy to substance 2 [facility] (20 sources) Penicillins Drug Intolerance 5 [facility] (1 source) Penicillins Drug allergy (disorder) 5 [facility] Repository Medications Current Medications Medication Drug Class(es) Dates Sig (Normalized) Sig (Original) acetaminophen 325 mg / HYDROcodone bitartrate 5 mg oral tablet (20 sources) Opioid Agonist Start: 04-23-2024 take 1 tablet by mouth every six hours as needed HYDROcodone-aceta minophen ([place]) 5-325 MG tablet Take 1 tablet by [...] tablet (20 sources) Antiarrhythmic Start: 05-20-2023 End: 03-15-2025 take 1 tablet by mouth once daily in the morning amiodarone (Pacerone) 200 MG tablet Indications: PAF (paroxysmal atrial fibrillation) (HCC) Take 1 tablet (200 mg) by mouth daily. 90 tablet 3 03/22/2025 8:27 AM EDT 03/15/2025 Active Start: 04-01-2020 End: 04-07-2023 take 1 [...] Start: 10-05-2019 End: 10-05-[address] [facility] 2019 11:00pm October 05, 2019 6:52am Start: [...] sources) Factor Xa Inhibitor Start: 12-23-2020 End: 06-29-2025 take 1 tablet by mouth twice daily in the morning apixaban (Eliquis) 5 MG tablet Indications: Paroxysmal atrial fibrillation (HCC) Take 1 tablet (5 mg) by mouth 2 times daily. 180 tablet 3 03/22/2025 8:27 AM EDT 06/06/2024 06/29/2025 Active Start: 10-24-2019 End: 10-31-2020 take 1 [...] (Plavix) 75 MG tablet Indications: CAD in [place] artery , Presence of coronary angioplasty implant and graft Take 1 tablet (75 mg) by mouth daily. 90 tablet 3 03/22/2025 8:27 AM EDT 06/06/2024 Active Start: 11-12-2020 take [...] take 1 puff(s) by inhalation once daily nmwlndqlziy-kubwxwfjy-wkzswe (TRELEGY ELLIPTA) 100-62.5-25 MCG/INH AEPB Inhale 1 puff into the lungs daily 2 each 0 10/29/2020 Active Fluticasone-Um eclidin-Vilant (TRELEGY ELLIPTA) 200-62.5-25 MCG/INH AEPB (4 sources) Start: 11-07-2020 End: 03-18-2021 take 1 puff(s) by inhalation once daily Gmevrwypvqp-Thnzfcyld-Zuiirb (TRELEGY ELLIPTA) 200-62.5-25 MCG/INH AEPB Indications: COPD with asthma (HCC) Inhale 1 puff into the lungs daily 3 each 3 11/07/2020 03/18/2021 Discontinued (Stop Taking at Discharge) Start: 11-07-2020 End: 03-18-2021 take 1 puff(s) by inhalation once daily Vcbtdtjelik-Iveqzohou-Kggfmb (TRELEGY ELLIPTA) 200-62.5-25 MCG/INH AEPB Indications: COPD with asthma (HCC) Inhale 1 puff into the lungs daily Lot nm8e exp -22 2 each 0 11/07/2020 03/18/2021 Discontinued (Stop Taking at Discharge) Start: 11-07-2020 take 1 puff(s) by inhalation once daily Dktzluzldtb-Odeuvmvcs-Ljrnmn (TRELEGY ELLIPTA) 200-62.5-25 MCG/INH AEPB Indications: COPD with asthma (HCC) Inhale 1 puff into the lungs daily 3 each 3 11/07/2020 Active Start: 11-07-2020 take 1 puff(s) by inhalation once daily Yemjhsymaos-Byotamppz-Ergmtr (TRELEGY ELLIPTA) 200-62.5-25 MCG/INH AEPB Indications: COPD [...] MG 24 hr tablet Indications: CAD in [place] artery Take 2 tablets (120 mg) by mouth daily. 180 tablet 3 08/30/2024 12/28/2024 Discontinued (Dose adjustment) Start: 02-09-2023 End: 05-22-2024 take 2 tablets by mouth once daily isosorbide mononitrate ER (Imdur) 60 MG 24 hr tablet Indications: CAD in [place] artery Take 2 tablets (120 mg) by mouth daily. 180 tablet 2 05/22/2024 Active Start: 07-06-2022 End: 07-07-2023 take 1 tablet by mouth once daily isosorbide mononitrate ER (Imdur) 60 MG 24 hr tablet Indications: CAD in [place] artery Take 1 tablet (60 mg) by [...] daily 50 mg, Oral, 2 times d marjan, First dose on Nicci 09/14/24 at 2100, Hold for HR Start: 08-24-2024 End: 08-24-2025 take 1 tablet by mouth twice daily metoprolol tartrate (Lopressor) 50 MG tablet Take 1 tablet (50 mg) by mouth 2 times daily. 60 tablet 11 08/24/2024 09/15/2024 Discontinued (Stop taking at discharge) Start: 03-26-2024 take 1 tablet by cary once daily Metoprolol Tartrate 25 mg tablet Active 25 mg PO DAILY March 26, 2024 12:00am Start: 05-19-2023 Metoprolol Tar trate 50 mg tablet Active 25 mg PO AT BEDTIME May 19, 2023 1:00am Start: 05-19-2023 take 25 mg by mouth at bedtime Metoprolol Tartrate Active 25 MG PO AT BEDTIME May 19, 2023 12:00am Start: 04-07-2023 take 2 tablets by mo [facility] once daily Metoprolol Succinate 50 mg tablet extended release 24 hr Active 25 mg PO DAILY April 07, 2023 1:00am Start: 04-07-2023 take 25 mg by mouth once daily Metoprolol Succinate Active 25 MG PO DAILY April 07, 2023 12:00am Start: 12-07-2022 End: 06-06-2025 take 1 tablet by mouth twice daily metoprolol tartrate (Lopressor) 25 MG tablet Indications: CAD in [place] artery Take 1 tablet (25 mg) by [...] SL tablet Indications: Atherosclerotic heart disease of [place] coronary artery without angina pectoris Place 1 [...] Active ondansetron 4 mg disintegrating oral tablet (20 sources) Serotonin-3 Receptor Antagonist Start: 07-05-2023 End: [...] crush, chew, or split. 180 tablet 3 03/22/2025 8:27 AM EDT 07/06/2024 07/06/2025 Active Start: 04-15-2021 take 1 tablet by cary th twice daily ranolazine (RANEXA) 500 MG extended release tablet Take 1 tablet by mouth 2 times daily 60 tablet 3 04/15/2021 Active spironolactone 25 mg oral tablet (20 sources) Aldosterone Antagonist Start: 03-16-2025 take 1 tablet by mouth twice daily in the morning spironolactone (Aldactone) 25 MG tablet Indications: Primary hypertension Take 1 tablet (25 mg) by mouth 2 times daily. 180 tablet 3 03/22/2025 8:27 AM EDT 03/16/2025 Active Start: 01-16-2025 End: 03-16-2025 take 1 tablet by mouth once daily spironolactone (Aldactone) 25 MG tablet Indications: Primary hypertension Take 1 tablet (25 mg) by mouth daily. 01/16/2025 03/16/2025 Discontinued (Duplicate order) Start: 06-06-2024 End: 01-16-2025 take 1 tablet [...] if needd. 01/16/2025 Active Start: 07-20-2024 End: 01-16-2025 take 1 tablet by mouth twice daily torsemide (Demadex) 20 MG tablet Indications: WATTS (dyspnea on exertion) Take 1 tablet (20 mg) by mouth 2 times daily. 180 tablet 3 11/30/2024 01/16/2025 Discontinued (Dose adjustment) Start: 12-08-2022 End: 09-15-2024 take 1 tablet [...] Start: 09-08-2019 acetaminophen (TYLENOL) tablet 650 mg [id number] 200 actuat albuterol 0.09 mg/actuat metered dose [...] Start: 08-27-2020 take 1 tablet by cary once daily atorvastatin (LIPITOR) 80 MG tablet Indications: Coronary artery disease involving [place] coronary artery of [place] heart without angina pectoris , Other hyperlipidemia [...] 0.6 mg PO TWICE A DAY 14 0 April 08, 2024 1:00am April 23, 2024 [...] HOURS NEEDED as needed for Dizziness 20 September 10, 2021 12:05am December 29, 2021 [...] 40 mg PO TWICE A DAY 60 2 January 14, 2022 12:00am April 01, 2022 [...] PRN, other, suboptimal echo image, Starting on Wed02/07/25 at 1420, For 1 dose, CV Procedural Medications, Administer via slow IVP for suboptimal echocardiogram enhancement. May administer as divided doses to reach optimal image enhancement Start: 08-24-2024 End: 08-24-2024 0-10 mL, IntraVENous, IMG on ce PRN, other, Starting on Wed08/24/24 at 1341, For 1 dose, CV Procedural Medications, Draw entire 3 mL vial of perflutren protein A microspheres into a syringe along with 7 ml of NS from a vial to a total volume of 10 mL. polyethylene glycol 3350 44704 mg powder for oral solution (18 sources) [...] Nicci 09/14/24 at 1615 Start: 12-08-2022 End: 07-05-2025 take 1 tablet by mouth once daily in the morning rosuvastatin (Crestor) 40 MG tablet Indications: CAD in [place] artery Take 1 tablet (40 mg) by mouth daily. 90 tablet 3 03/22/2025 8:27 AM EDT 06/06/2024 07/05/2025 Active Start: 12-07-2022 End: 12-08-2022 rosuvastatin (Crestor) [...] Start: 12-06-2022 End: 12-08-2022 5-250 mL/hr, IntraVENous, OR N, if patient receiving piggyback infusions and maintenance fluids are not ordered OR KVO fluids to protect IV site / prevent frequent line interruptions / long duration, Starting on Wed12/06/22 at 1032 For piggyback infusion, administer at [...] 1 {tbl} PO TWICE A DAY 20 March 12, 2024 12:00am March 27, 2024 [...] unspecified; Translations: [Vitamin D deficiency, unspecified] Onset: 5 Chronic Osteoarthritis (1 source) Unilateral primary osteoarthritis, left [...] arthritis; Translations: [Rheumatoid arthritis, unspecified] 2020 Chronic Skin and subcutaneous tissue infections (6 sources) Cellulitis; Translations: [Cellulitis, unspecified] 03-20-2024 Episodic Superficial injury; contusion (6 sources) Contusion of rib; Translations: [Contusion of unspecified front wall of thorax, initial encounter] 04-04-2024 Episodic Thyroid disorders (20 sources) Thyroid nodule; Translations: [Nontoxic single thyroid nodule] 10-27-2022 Chronic Unclassified (2 sources) Long-term current use of drug therapy; Translations: [group home current use of antiarrhythmic drug] 05-26-2016 Unclassified [...] sources) Long-term current use of anticoagulant; Translations: [group home (current) use of anticoagulants] Onset: 05-26-2016 05-26-2016 Episodic Other aftercare (20 sources) Long-term current use of drug therapy; Translations: [Other long term care phlebotomist (current) drug therapy] Onset: 05-26-2016 05-26-2016 Episodic Other connective tissue disease (1 source) Pain in left toe(s); Translations: [Pain in left toe(s)] Onset: 11-20-2024 Episodic Other connective tissue disease (1 source) Pain in right toe(s); Translations: [Pain in right toe(s)] Onset: 05-25-2024 Episodic Other connective tissue disease (1 source) Pain in right foot; Translations: [Pain in right foot] Onset: 06-08-2024 Episodic Other lower respiratory disease (20 sources) [...] intestinal tract, unspecified] Onset: 05-09-2024 04-01-2020 Episodic Residual codes; unclassified (20 sources) History of cardiac catheterization; Translations: [Other specified postprocedural states] Onset: 03-17-2021 Episodic Comment on above: 2021 Residual codes; unclassified (20 sources) Localized edema; Translations: [Localized edema] Onset: 09-28-2022 Episodic Results Test Name Value Interpretation Reference Range Facility 36on 03-28-2025 36 Received copy of blo od work from IRIS landa. Sent to be scanned . PC to patient, continue same medications . He is feeling good. [facility] MR/PATAaron 03-16-2025 MR/RENATA [facility] Medical Records Department [address] [place] [address] PAT - Anesthesia 10/1804 MR#: [id number] Acct: [id number] Name: SHANNON OLSON Rep #: [id number] : [id number] 69 From: Lc Chavez MD PCP: Dr. 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 When Was Last Pacemaker Check QUESTION #4 FULL TEXT: You/Your Family Experience fever (hyperthermia) with Anesthesia Last Oral Intake Last Oral intake: Last Oral Intake NPO since Meds taken in AM with sips of water? Meds patient instructed to take am of surgery PONV PONV - beading machine operator: PONV - beading machine operator Female No 03/05/25 09:27 HX of Motion Sickness Yes 03/05/25 09:27 HX of N/V After Surgery No 03/05/25 09:27 Non-Smoker Yes 03/05/25 09:27 Duration of Surgery greater Yes 03/05/25 09:27 than 60 minutes Number of Risk Factors 3 03/05/25 09:27 PONV Score Moderate Risk 03/05/25 09:27 Height Weight Height Weight: Anesthesia: Height Weight Height 6 ft 2 in 11/14/24 23:14 Respiratory Assessment Respiratory Assessment - beading machine operator: Respiratory Tract Infection Hx - beading machine operator Hx Respiratory Tract Infection No 03/05/25 09:27 STOP Sleep Apnea STOP Sleep Apnea - beading machine operator: STOP Sleep Apnea - beading machine operator Hx Hypertension Yes 03/05/25 09:27 Hx Sleep Apnea Yes 03/05/25 09:27 CPAP Yes: non compliant 03/05/25 09:27 BIPAP No 03/05/25 09:27 Do you snore loudly (louder than talking or can be heard Do you often feel tired/ fatigued/ sleepy during daytime? Has anyone observed you stop breathing during sleep? STOP Results Positive 03/05/25 09:27 QUESTION #5 FULL TEXT : Do you snore loudly (louder than talking or can be heard through closed doors)? Tobacco Use History Tobacco Use History - beading machine operator: Tobacco Use History - beading machine operator Tobacco Use Non-smoker 08/23/23 09:57 Smoking Status Never smoker 03/05/25 09:27 Hx Tobacco Use No 03/05/25 09:27 Years Smoking Packs Smoked per Day Smoking Cessation Date was within the last 15 years Hx Smoking Cessation Date Hx Smoking Cessation Counseling Hematologic Medial History Hematologic Hx - beading machine operator: Hematologic Medical Hx - napkin band wrapper Hx of Blood Transfusion Yes 03/05/25 09:27 Hx of Transfusion in last 3 No 03/05/25 09:27 Months Date of Last Transfusion (if within last 3 months) Ever experience any problems No 03/05/25 09:27 with transfusion(s)? Specify any problems Hx of Preganancy in last 3 N/A 03/05/25 09:27 Months Nurse Filling Out Transfusion NBUCHER 03/05/25 09:27 Questions: Date: 03/05/25 03/05/25 09:27 Time: 09:35 03/05/25 09:27 Patient unable to answer at this time (ie. confused, unrespo /Reproduction History /Reproductive History - beading machine operator: /Reproductive Hx- beading machine operator Hx Now No 03/05/25 09:27 Gestational Age (in weeks): EDC: Hx Hx Para Hx Section SAB No 03/05/25 09:27 [facility] Medical History (Updated 03/16/25 @ 11:42 by Sofía Guerra) Gout DVT (deep venous thrombosis) History of hiatal hernia Left rotator cuff tear History of echocardiogram [...] pulmonary disease) CAD (coronary artery disease) Atrial fibrillati (more content not included)... Normal [facility] CBC W/Diff, Automatedon 10-2 Absolute Lymph 1.52 X10 3/uL Normal 0.83-4.51 [facility] Comment on above: Order Comment: Order Date: 03/13/25 Order Info: 07- - CMP Order Info: [id number] - IBC Performed By: #### L 506.0200, L400.0001, L506.1001, L503.0106 #### [facility] [address] [place], [address] Absolute Neut 5.8 X10 3/uL Normal 2.0-7.7 [facility] Comment on above: Order Comment: Order Date: 03/13/25 Order Info: 07 - CMP Order Info: [id number] - IBC Performed By: #### L 506.0200, L400.0001, L506.1001, L503.0106 #### [facility] [address] [place], [address] Basophils/100 WBC (Bld) 0.5 % Normal 0-1 [facility] Comment on above: Order Comment: Order Date: 03/13/25 Order Info: 0786 - CMP Order Info: [id number] - IBC Performed By: #### L 506.0200, L400.0001, L506.1001, L503.0106 #### [facility] [address] [place], [address] Eosinophils/100 WBC (Bld) 0.9 % Normal 0-5 [facility] Comment on above: Order Comment: Order Date: 03/13/25 Order Info: [id number] - CMP Order Info: [id number] - IBC Performed By: #### L 506.0200, L400.0001, L506.1001, L503.0106 #### [facility] [address] [place], [place], [id number] Erythrocyte distribution width (RBC) [Ratio] 14.1 % Normal 11.6-14.6 [facility] Comment on above: Order Comment: Order Date: 03/13/25 Order Info: [id number] - CMP Order Info: [id number] - IBC Performed By: #### L 506.0200, L400.0001, L506.1001, L503.0106 #### [facility] [address] [place], [address] Hematocrit (Bld) [Volume fraction] 42.9 % Normal 40-54 [facility] Comment on above: Order Comment: Order Date: 03/13/25 Order Info: 0786 - CMP Order Info: [id number] - IBC Performed By: #### L 506.0200, L400.0001, L506.1001, L503.0106 #### [facility] [address] [place], [place], [address] Hemoglobin (Bld) [Mass/Vol] 13.8 g/dL Normal 13.0-16.5 [facility] Comment on above: Order Comment: Order Date: 03/13/25 Order Info: 0786- - CMP Order Info: [id number] - IBC Performed By: #### L 506.0200, L400.0001, L506.1001, L503.0106 #### [facility] [address] [place], [address] IG% 0.500 Normal 0.0-0.9 [facility] Comment on above: Order Comment: Order Date: 03/13/25 Order Info: 0786- - CMP Order Info: [id number] - IBC Result Comment: IG% - Immature Granulocytes (promyelocytes, myelocytes and metamyelocytes) > 1% indicates that a LEFT SHIFT is Present. Performed By: #### L 506.0200, L400.0001, L506.1001, L503.0106 #### [facility] [address] [place], [address] Lymphocytes/100 WBC (Bld) 18.9 % Low 19-41 [facility] Comment on above: Order Comment: Order Date: 03/13/25 Order Info: [id number] - CMP Order Info: [id number] - IBC Performed By: #### L 506.0200, L400.0001, L506.1001, L503.0106 #### [facility] [address] [place], [address] MCH (RBC) [Entitic mass] 30.5 pg Normal 27.0-32.0 [facility] Comment on above: Order Comment: Order Date: 03/13/25 Order Info: 0786 - CMP Order Info: [id number] - IBC Performed By: #### L 506.0200, L400.0001, L506.1001, L503.0106 #### [facility] [address] [place], [address] MCHC (RBC) [Mass/Vol] 32.2 g/dL Normal 32-36 [facility] Comment on above: Order Comment: Order Date: 03/13/25 Order Info: 0786- - CMP Order Info: [id number] - IBC Performed By: #### L 506.0200, L400.0001, L506.1001, L503.0106 #### [facility] [address] [place], [address] MCV (RBC) [Entitic vol] 94.9 fL High 80-94 [facility] Comment on above: Order Comment: Order Date: 03/13/25 Order Info: [id number] - CMP Order Info: [id number] - IBC Performed By: #### L 506.0200, L400.0001, L506.1001, L503.0106 #### [facility] [address] [place], [address] Monocytes/100 WBC (Bld) 7.2 % Normal 0-10 [facility] Comment on above: Order Comment: Order Date: 03/13/25 Order Info: [id number] - CMP Order Info: [id number] - IBC Performed By: #### L 506.0200, L400.0001, L506.1001, L503.0106 #### [facility] [address] [place], [address] Neutrophils/100 WBC (Bld) 72.0 % High 47-70 [facility] Comment on above: Order Comment: Order Date: 03/13/25 Order Info: [id number] - CMP Order Info: [id number] - IBC Performed By: #### L 506.0200, L400.0001, L506.1001, L503.0106 #### [facility] [address] [place], [address] Nucleated RBC (Bld) [#/Vol] 0 10*3/uL Normal 0-5 [facility] Comment on above: Order Comment: Order Date: 03/13/25 Order Info: 0786-1 - CMP Order Info: [id number] - IBC Performed By: #### L 506.0200, L400.0001, L506.1001, L503.0106 #### [facility] [address] [place], [address] Platelet mean volume (Bld) [Entitic vol] 9.7 fL Normal 6.2-12.0 [facility] Comment on above: Order Comment: Order Date: 03/13/25 Order Info: 0786-1 - CMP Order Info: [id number] - IBC Performed By: #### L 506.0200, L400.0001, L506.1001, L503.0106 #### [facility] [address] [place], [address] Platelets (Bld) [#/Vol] 282 10*3/uL Normal 150-450 [facility] Comment on above: Order Comment: Order Date: 03/13/25 Order Info: 0786-1 - CMP Order Info: [id number] - IBC Performed By: #### L 506.0200, L400.0001, L506.1001, L503.0106 #### [facility] [address] [place], [address] RBC (Bld) [#/Vol] 4.52 10*6/uL Low 4.6-6.2 [facility] Comment on above: Order Comment: Order Date: 03/13/25 Order Info: 0786-1 - CMP Order Info: [id number] - IBC Performed By: #### L 506.0200, L400.0001, L506.1001, L503.0106 #### [facility] [address] [place], [place], [id number] RDW SD 49.1 fl High 35.1-43.9 [facility] Comment on above: Order Comment: Order Date: 03/13/25 Order Info: 0786-1 - CMP Order Info: [id number] - IBC Performed By: #### L 506.0200, L400.0001, L506.1001, L503.0106 #### [facility] [address] [place], [address] WBC (Bld) [#/Vol] 8.0 10*3/uL Normal 4.4-11.0 [facility] Comment on above: Order Comment: Order Date: 03/13/25 Order Info: 0786-1 - CMP Order Info: [id number] - IBC Performed By: #### L 506.0200, L400.0001, L506.1001, L503.0106 #### [facility] [address] [place], [place], [address] Comprehensive Metabolic Prof ilon 03-13-2025 Albumin [Mass/Vol] 4.4 g/dL Normal 3.4-4.8 [facility] Comment on above: Order Comment: Order Date: 03/13/25 Order Info: 0786-1 - CMP Order Info: [id number] - IBC Performed By: #### L 506.0200, L400.0001, L506.1001, L503.0106 #### [facility] [address] [place], [address] Albumin/Globulin [Mass ratio] 1.5 {ratio} Normal 0.9-2.4 [facility] Comment on above: Order Comment: Order Date: 03/13/25 Order Info: 0786-1 - CMP Order Info: [id number] - IBC Performed By: #### L 506.0200, L400.0001, L506.1001, L503.0106 #### [facility] [address] [place], [address] ALK PHOS 103 U/L Normal 40-129 [facility] Comment on above: Order Comment: Order Date: 03/13/25 Order Info: 0786- - CMP Order Info: [id number] - IBC Performed By: #### L 506.0200, L400.0001, L506.1001, L503.0106 #### [facility] [address] [place], [address] ALT [Catalytic activity/Vol] 26 U/L Normal <=46 [facility] Comment on above: Order Comment: Order Date: 03/13/25 Order Info: 0786-1 - CMP Order Info: [id number] - IBC Performed By: #### L 506.0200, L400.0001, L506.1001, L503.0106 #### [facility] [address] [place], [address] AST [Catalytic activity/Vol] 21 U/L Normal <=37 [facility] Comment on above: Order Comment: Order Date: 03/13/25 Order Info: 0786-1 - CMP Order Info: [id number] - IBC Performed By: #### L 506.0200, L400.0001, L506.1001, L503.0106 #### [facility] [address] [place], [address] Bilirubin [Mass/Vol] 0.75 mg/dL Normal 0.00-1.30 [facility] Comment on above: Order Comment: Order Date: 03/13/25 Order Info: 0786-1 - CMP Order Info: [id number] - IBC Performed By: #### L 506.0200, L400.0001, L506.1001, L503.0106 #### [facility] [address] [place], [address] BUN/CRE 21.2 RATIO High 10-20 [facility] Comment on above: Order Comment: Order Date: 03/13/25 Order Info: 0786-1 - CMP Order Info: [id number] - IBC Performed By: #### L 506.0200, L400.0001, L506.1001, L503.0106 #### [facility] [address] [place], [address] Calcium [Mass/Vol] 9.6 mg/dL Normal 7.6-11.0 [facility] Comment on above: Order Comment: Order Date: 03/13/25 Order Info: 0786-1 - CMP Order Info: [id number] - IBC Performed By: #### L 506.0200, L400.0001, L506.1001, L503.0106 #### [facility] [address] [place], [address] Chloride [Moles/Vol] 103 mmol/L Normal 98-108 [facility] Comment on above: Order Comment: Order Date: 03/13/25 Order Info: 0786-1 - CMP Order Info: [id number] - IBC Performed By: #### L 506.0200, L400.0001, L506.1001, L503.0106 #### [facility] [address] [place], [address] CO2 [Moles/Vol] 22.8 mmol/L Normal 21.0-32.0 [facility] Comment on above: Order Comment: Order Date: 03/13/25 Order Info: 0786-1 - CMP Order Info: [id number] - IBC Performed By: #### L 506.0200, L400.0001, L506.1001, L503.0106 #### [facility] [address] [place], [address] Creatinine [Mass/Vol] 1.52 mg/dL High 0.70-1.20 [facility] Comment on above: Order Comment: Order Date: 03/13/25 Order Info: 0786-1 - CMP Order Info: [id number] - IBC Performed By: #### L 506.0200, L400.0001, L506.1001, L503.0106 #### [facility] [address] [place], [address] GAP 12 Normal 5-15 [facility] Comment on above: Order Comment: Order Date: 03/13/25 Order Info: 0786-1 - [facility] Order Info: [id number] - IBC Performed By: #### L 506.0200, L400.0001, L506.1001, L503.0106 #### [facility] [address] [place], [address] GFR/1.73 sq M.predicted among non-blacks MDRD (S/P/Bld) [Vol rate/Area] 49 mL/min/{1.73_m2} Low >60 [facility] Comment on above: Order Comment: Order Date: 03/13/25 Order Info: 0786-1 - CMP Order Info: [id number] - IBC Result Comment: mL/m in/1.73m2 CKD-EPI Creatinine Equation (2020) Performed By: #### L 506.0200, L400.0001, L506.1001, L503.0106 #### [facility] [address] [place], [address] Globulin (S) [Mass/Vol] 2.9 g/dL Normal 2.2-4.2 [facility] Comment on above: Order Comment: Order Date: 03/13/25 Order Info: 0786-1 - CMP Order Info: [id number] - IBC Performed By: #### L 506.0200, L400.0001, L506.1001, L503.0106 #### [facility] [address] [place], [address] Glucose [Mass/Vol] 100 mg/dL High 70-99 [facility] Comment on above: Order Comment: Order Date: 03/13/25 Order Info: 0786-1 - CMP Order Info: [id number] - IBC Performed By: #### L 506.0200, L400.0001, L506.1001, L503.0106 #### [facility] [address] [place], [address] Potassium [Moles/Vol] 4.3 mmol/L Normal 3.3-5.1 [facility] Comment on above: Order Comment: Order Date: 03/13/25 Order Info: 0786-1 - CMP Order Info: [id number] - IBC Performed By: #### L 506.0200, L400.0001, L506.1001, L503.0106 #### [facility] [address] [place], [address] Sodium [Moles/Vol] 138 mmol/L Normal 133-145 [facility] Comment on above: Order Comment: Order Date: 03/13/25 Order Info: 0786-1 - CMP Order Info: [id number] - IBC Performed By: #### L 506.0200, L400.0001, L506.1001, L503.0106 #### [facility] [address] [place], [address] T PROT 7.3 g/dL Normal 5.9-8.4 [facility] Comment on above: Order Comment: Order Date: 03/13/25 Order Info: 0786-1 - CMP Order Info: [id number] - IBC Performed By: #### L 506.0200, L400.0001, L506.1001, L503.0106 #### [facility] [address] [place], [address] Urea nitrogen [Mass/Vol] 32 mg/dL High 4-19 [facility] Comment on above: Order Comment: Order Date: 03/13/25 Order Info: 0786-1 - CMP Order Info: [id number] - IBC Performed By: #### L 506.0200, L400.0001, L506.1001, L503.0106 #### [facility] [address] [place], [address] Folates,Serum (Folic Acid)on 03-13-2025 FOLATES,SERUM 8.08 ng/mL Normal 4.60-34.80 [facility] Comment on above: Order Comment: N Result Comment: Hemo lysis, Results will be affected, Requires Recollection. Performed By: #### L 506.0200, L400.0001, L506.1001, L503.0106 #### [facility] [address] [place], [address] Iron+Iron Binding Capacityon 03-13-2025 Iron [Mass/Vol] 68 ug/dL Normal 65-175 [facility] Comment on above: Order Comment: Order Date: 03/13/25 Order Info: 0786-1 - CMP Order Info: [id number] - IBC Performed By: #### L 506.0200, L400.0001, L506.1001, L503.0106 #### [facility] [address] [place], [address] IRON SATURATION 22.9 Normal 9-55 [facility] Comment on above: Order Comment: Order Date: 03/13/25 Order Info: 0786-1 - CMP Order Info: [id number] - IBC Performed By: #### L 506.0200, L400.0001, L506.1001, L503.0106 #### [facility] [address] [place], [address] TIBC 296 ug/dL Normal 250-450 [facility] Comment on above: Order Comment: Order Date: 03/13/25 Order Info: 0786-1 - [facility] Order Info: [id number] - IBC Performed By: #### L 506.0200, L400.0001, L506.1001, L503.0106 #### [facility] [address] [place], [address] UIBC 228 ug/dL Normal 228-428 [facility] Comment on above: Order Comment: Order Date: 03/13/25 Order Info: 0786-1 - [facility] Order Info: [id number] - IBC Performed By: #### L 506.0200, L400.0001, L506.1001, L503.0106 #### [facility] [address] [place], [address] Urinalysis, Completeon 03-13 BACTERIA 0 SEEN Normal None Seen [facility] Comment on above: Order Comment: CLEAN CATCH Performed By: #### L 506.0200, L400.0001, L506.1001, L503.0106 #### [facility] [address] [place], [address] EPI,SQUAMOUS 0 SEEN Normal 0-5 [facility] Comment on above: Order Comment: CLEAN CATCH Performed By: #### L 506.0200, L400.0001, L506.1001, L503.0106 #### [facility] [address] [place], [address] Mucus Ql (Urine sed) 0 SEEN Normal [facility] Comment on above: Order Comment: CLEAN CATCH Performed By: #### L 506.0200, L400.0001, L506.1001, L503.0106 #### [facility] [address] [place], [address] RBC 0 SEEN Normal 0-5 [facility] Comment on above: Order Comment: CLEAN CATCH Performed By: #### L 506.0200, L400.0001, L506.1001, L503.0106 #### [facility] [address] [place], [address] WBC 0 SEEN Normal 0-5 [facility] Comment on above: Order Comment: CLEAN CATCH Performed By: #### L 506.0200, L400.0001, L506.1001, L503.0106 #### [facility] [address] [place], [address] Vitamin B12on 03-13-2025 Cobalamin (Vitamin B12) [Mass/Vol] 316 pg/mL Normal 180-914 [facility] Comment on above: Order Comment: Order Date: 03/13/25 Order Info: 0786-1 - CMP Order Info: [id number] - IBC Performed By: #### L 506.0200, L400.0001, L506.1001, L503.0106 #### [facility] [address] [place], [address] Vitamin D,25 Hydroxyon 03-13 Vitamin D 25-OH 41.7 ng/mL Normal 30-100 [facility] Comment on above: Order Comment: Order Date: 03/13/25 Order Info: 0786-1 - CMP Order Info: [id number] - IBC Result Comment: Purnima min D Status Deficiency: <20 ng/mL (50nmol/L) Insufficiency: 20-30 ng/mL (50-75 nmol/L) Sufficiency: 30-100 ng/mL (75-250 nmol/L) Toxicity: >100 ng/mL (>250 nmol/L) Performed By: #### L 506.0200, L400.0001, L506.1001, L503.0106 #### [facility] [address] [place], [address] MRSA/SAID NASAL SCREENon MRSA+SAID SCRN Reason for Exam: pre op MRSA MRSA Negative S. AUREUS S. aureus Negative Normal [facility] Comment on above: Performed By: #### L 501.9910 #### [facility] [address] [place], [address] 36on 02-22-2025 36 Form faxed to [facility] [phone] and scanned under Media and confirmed. Normal [facility] 36on 02-21-2025 36 Clearance form compl eted by Dr. Ortega, given to [place] [employer] to fax Normal [facility] 36on 02-07-2025 36 Echocardiogram revie wed. EF now ~ 57%, recovered, grade 1 diastolic dysfunction, RV WNL. No valvular abnormalities. Discussed results with him at OV with BP this afternoon. Normal [facility] Office Visiton 02-07-2025 Follow-up visit [id number] JaylaLuisjanie Mendiola 1955 M Date Provider Department Center 02/07/2025 [id number] CROSS [facility] ACH HARIKA SHMGCV 95 Ar Family History Problem Relation Age of Onset Diabetes Paternal Grandmother Diabetes Maternal Grandfather Cancer Sister Hypertension Mother Diabetes Sister Diabetes Paternal Grandfather Heart disease Paternal Grandmother Heart disease Paternal Grandfather Cancer Father Diabetes Brother Family Status - Relation Status Age at Paternal Grandmother Maternal Grandfather Sister Mother Alive Paternal Grandfather Father Brother Level of Service:37068 OR OFFICE/OUTPATIENT ESTABLISHED LOW MDM 20 MIN Reason for Visit and Comments: Annual Exam [83] Normal [facility] Progress Noteon 02-07-2025 Progress Note [facility] [place] [address] [facility] [address] Dept: [phone] Dept Visit type: Established : 1955 Reason for Visit: Annual Assessment and Plan 1. 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 He has a history of [...] Weight: 294 lb (133 kg) Height: 6' 2.5 (1.892 m) Physical [...] ezetimibe (Zetia (more content not included)... Normal [facility] US Heart TransthoracicOrdere d By: Ana Bains on 02-07-2025 Aortic Sinus Valsalva 3.7 cm [employer] Work Phone: Aortic Sinus Valsalva Index 1.45 cm/m2 [facility] Work Phone: Aortic valve Mean systole pressure gradient by US.doppler derived full Bernoulli 4 mmHg [facility] Work Phone: Aortic valve Orifice area by US 4.5 cm2 [facility] [employer] Work Phone: Aortic valve Peak systolic flow by US.doppler 0.9 m/s [facility] [employer] Phone: Ascending Aorta 3.9 cm [facility] [employer] Phone: Ascending Aorta Index 1.52 cm/m2 [employer] Work Phone: AV Area by Peak Velocity 3.1 cm2 [facility] [employer] Work Phone: AV Area by VTI 3 cm2 [facility] [employer] Work Phone: AV Peak Gradient 6 mmHg [facility] [employer] Phone: AV Peak Velocity 1.3 m/s [facility] [employer] Phone: AV Velocity Ratio 0.62 [facility] [employer] Phone: AV VTI 26.3 cm [facility] [employer] Work Phone: GRACE/BSA Peak Velocity 1.2 cm2/m2 [employer] Work Phone: GRACE/BSA VTI 1.2 cm2/m2 [facility] [employer] Work Phone: E/E' Lateral 5.29 [facility] [employer] Phone: E/E' Ratio (Averaged) 7.27 [facility] [employer] Work Phone: E/E' Septal 9.25 [facility] [employer] Phone: Est. RA Pressure 8 mmHg [facility] [employer] Work Phone: Fractional Shortening 2D 12 % 28 - 44 % [facility] Work Phone: Interpretation and review of laboratory results Abnormal [facility] [employer] Work Phone: IVC Diameter 1.9 cm [facility] [employer] Work Phone: IVSd 1.4 cm Abnormal 0.6 - 1.0 cm [facility] [employer] Work Phone: LA Diameter 5.6 cm [facility] [employer] Work Phone: LA Size Index 2.19 cm/m2 [facility] [employer] Work Phone: LA Volume 2C 53 mL 18 - 58 mL [facility] [employer] Work Phone: LA Volume 4C 67 mL Abnormal 18 - 58 mL [facility] [employer] Work Phone: LA Volume A/L 64 mL [facility] [employer] Phone: LA Volume BP 61 mL Abnormal 18 - 58 mL [facility] [employer] Phone: LA Volume Index 2C 21 mL/m2 16 - 34 mL/m2 [facility] [employer] Work Phone: LA Volume Index 4C 26 mL/m2 16 - 34 mL/m2 [facility] [employer] Work Phone: LA Volume Index A/L 25 mL/m2 16 - 34 mL/m2 [facility] [employer] Work Phone: LA Volume Index BP 24 ml/m2 16 - 34 ml/m2 [facility] [employer] Work Phone: Left ventricular Ejection fraction by US.2D+Calculated by biplane method of disks 57 % 55 - 100 % [facility] [employer] Work Phone: LV E' Lateral Velocity 7 cm/s [facility] [employer] Work Phone: LV E' Septal Velocity 4 cm/s [facility] [employer] Work Phone: LV EDV A2C 81 mL [facility] [employer] Work Phone: LV EDV A4C 216 mL [facility] [employer] Work Phone: LV EDV BP 136 mL 67 - 155 mL [facility] [employer] Work Phone: LV EDV Index A2C 32 mL/m2 [facility] [employer] Work Phone: LV EDV Index A4C 84 mL/m2 [employer] Work Phone: LV EDV Index BP 53 mL/m2 [employer] Work Phone: LV Ejection Fraction A2C 68 % [employer] Work Phone: LV Ejection Fraction A4C 43 % [employer] Work Phone: LV ESV A2C 26 mL [employer] Work Phone: LV ESV A4C 124 mL [employer] Work Phone: LV ESV BP 59 mL Abnormal 22 - 58 mL [employer] Work Phone: LV ESV Index A2C 10 mL/m2 [employer] Work Phone: LV ESV Index A4C 48 mL/m2 [employer] Work Phone: LV ESV Index BP 23 mL/m2 [employer] Work Phone: LV Mass 2D 314 g Abnormal 88 - 224 g [employer] Work Phone: LV Mass 2D Index 122.7 g/m2 Abnormal 49 - 115 g/m2 [employer] Work Phone: LV RWT Ratio 0.38 [employer] Work Phone: LVIDd 5.8 cm 4.2 - 5.9 cm [employer] Work Phone: LVIDd Index 2.27 cm/m2 [employer] Work Phone: LVIDs 5.1 cm [employer] Work Phone: LVIDs Index 1.99 cm/m2 [employer] Work Phone: LVOT Cardiac Output 4.4 liter/mi nu te [employer] Work Phone: LVOT Diameter 2.4 cm [employer] Work Phone: LVOT Mean Gradient 2 mmHg [employer] Work Phone: LVOT Peak Gradient 3 mmHg [employer] Work Phone: LVOT Peak Velocity 0.8 m/s [employer] Work Phone: LVOT Stroke Volume Index 29.8 mL/m2 [facility] [employer] Work Phone: LVOT SV 76.4 ml [facility] [employer] Work Phone: LVOT VTI 16.9 cm [facility] [employer] Work Phone: LVOT:AV VTI Index 0.64 [facility] [employer] Work Phone: LVPWd 1.1 cm Abnormal 0.6 - 1.0 cm [facility] [employer] Work Phone: MV A Velocity 0.61 m/s [facility] [employer] Work Phone: MV E Velocity 0.37 m/s [facility] [employer] Work Phone: MV E Wave Deceleration Time 417.6 ms [facility] [employer] Work Phone: MV E/A 0.61 [facility] [employer] Work Phone: Pulm Vein A Duration 182.7 ms [facility] [employer] Work Phone: Pulm Vein A Velocity 0.3 m/s [facility] [employer] Work Phone: Pulm Vein Peak D Velocity 0.2 m/s [facility] [employer] Work Phone: Pulm Vein Peak S Velocity 0.4 m/s [facility] [employer] Work Phone: Pulm Vein S/D 2 [facility] [employer] Work Phone: Pulmonary Artery EDP 12 mmHg [facility] Work Phone: Pulmonary Artery EDP 7 mmHg [facility] Work Phone: RV Free Wall Peak S' 16 cm/s [facility] Work Phone: RVSP 24 mmHg [facility] [employer] Work Phone: Sinotubular Junction 3.4 cm [facility] [employer] Work Phone: TAPSE 2.5 cm 1.7 cm [facility] [employer] Work Phone: TR Max Velocity 1.98 m/s [facility] [employer] Work Phone: TR Peak Gradient 16 mmHg [employer] Work Phone: [employer] Work Phone: US Heart Transthoracicon Left Ventricle: Left ventricle size [...] Cont raon 01-29-2025 Extremity Lower without Contra [facility] Services [address] [place] [address] Extremity Lower without Contra MR#: [id number] Acct: [id number] Name: SHANNON OLSON Rep #: [id number] : 1955 M 69 From: Dom Echols PCP: Dr. Finn Ferrell MD Status: REG CLI Study: Extremity Lower without Contra Date of Exam: 0 01/29/25 Exam# [id number] Ordering Dr: Terry Figueroa MD PROCEDURE: EXTREMITY LOWER WITHOUT CONTRA 01/29/2025 REASON FOR EXAM: UNILATERAL PRIMARY OSTEOARTHRITIS,LT KNEE,THYROID TECHNIQUE: Procedure Code: CTELWO Modality: CT Procedure: [facility] noncontrasted CT of the left knee, to [...] and degenerative changes as described. Reading Location: [place] [address] CC: Dr. Finn Ferrell MD; Dr. Terry Figueroa MD [employer]: Signed Normal [facility] Thyroidon 01-29-2025 [facility]roid [facility] [address] [place], [place] [address] Thyroid MR#: [id number] Acct: [id number] Name: SHANNON OLSON Rep #: [id number] : 1955 M 69 From: Beka tariq MD PCP: Dr. Finn Ferrell MD Status: REG CLI Study: Thyroid Date of Exam: 01/29/25 Exam# [id number] Ordering Dr: Finn Ferrell MD PROCEDURE: THYROID [...] no more than 2 nodules. Reading Location: [id number] CC: Dr. Finn Ferrell MD [employer]: Signed Normal [facility] [id number] 01-25-2025 [facility] Misc. COMMENT Normal . [facility] Comment on above: Order Comment: Order Date: 03/13/25 Order Info: [id number] - CMP Order Info: [id number] - IBC Result Comment: Test Ordered: [id number] JAK2 Mutation Analysis, Qual JAK2 V617F mutation [...] within exon 14 of the JAK2 gene (W2649F) encoding a valine to phenylalanine substitution at [...] type (WT) and JAK2 mutant V617F. The [id number] Absolute Quantitation software will compare the patient specimen valuse to the standard curves and generate percent values for wild type and mutant type. In vitro studies have indicated that this assay has an analytical sensitivity of 1%. References: Kyaw EJ, Vinayak LM, Moose PJ, et al. Acquired mutation of the tyrosine kinase JAK2 in human myeloproliferative disorders. Lancet. 2005 Aug 09; 365(0223):0903-8677. Ralph Harris, Andre V, Gretchen Land JP. 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 Nature. 2005 Aug 28; 434(8622):8899-7001. Nehemias R, Noy F, Bhumika , et al. A gain-of- function mutation of JAK2 in myeloproliferative disorders. N Engl J Med. 2005 Sep 18; 352(17):5308-0853. Director Review: Roman [facility] Reference Range: . Technical Component performed at [facility] Professional Component performed by: Chan Minor, PhD, [facility] Director, Molecular Oncology [facility] [id number], [address] [facility] [address] This test was developed and its performance characteristics determined by [employer]. It has not been cleared or approved by the Food and Drug Administration. Performed at: [facility] - [facility] [address] [facility] [place], [place] [id number] Matrix Supervisor: Adelina Lockhart [facility], Phone: [phone] Performed at: [facility] - [facility] [address] [place], [place] [id number] [employer] Supervisor: Adelina Lockhart [facility], Phone: [phone] Performed at: [facility] [id number] [employer] Supervisor: Terrance Ashford PhD, Phone: [phone] Performed By: #### L 506.0200, L400.0001, L506.1001, L503.0106 #### [facility] [address] [place], [address] 36on 01-19-2025 36 Patient called reque sting me to let Danisha know his surgery is scheduled 04/02/25. He does not need a call back. Normal [facility] 36on 01-18-2025 36 Received fax from [facility], [place], patient scheduled for a robotic assisted left total knee arthoplasty on 04/02/[address] Figueroa. Patient has an upcoming appt with Dr. Ortega on 02/07/25, will address clearance at that time. Normal [facility] Ferritinon 01-17-2025 Ferritin [Mass/Vol] 606 ng/mL High 37-417 [facility] Comment on above: Order Comment: PLEAS E ADD ON FERRITIN AND IBC FROM WEDNESDAY. MG3 6K. Performed By: #### L 100.0500, L500.4050, L501.9520 #### [facility] [address] [place], [address] Iron+Iron Binding Capacityon 01-17-2025 Iron [Mass/Vol] 114 ug/dL Normal 65-175 [facility] Comment on above: Order Comment: PLEAS E ADD ON FERRITIN AND IBC FROM WEDNESDAY. MG3 6K. Performed By: #### L 100.0500, L500.4050, L501.9520 #### [facility] [address] [place], [address] IRON SATURATION 40.0 Normal 9-55 [facility] Comment on above: Order Comment: PLEAS E ADD ON FERRITIN AND IBC FROM WEDNESDAY. MG3 6K. Performed By: #### L 100.0500, L500.4050, L501.9520 #### [facility] [address] [place], [address] TIBC 285 ug/dL Normal 250-450 [facility] Comment on above: Order Comment: PLEAS E ADD ON FERRITIN AND IBC FROM WEDNESDAY. MG3 6K. Performed By: #### L 100.0500, L500.4050, L501.9520 #### [facility] [address] [place], [address] UIBC 171 ug/dL Low 228-428 [facility] Comment on above: Order Comment: PLEAS E ADD ON FERRITIN AND IBC FROM WEDNESDAY. MG3 6K. Performed By: #### L 100.0500, L500.4050, L501.9520 #### [facility] [address] [place], [address] 36on 01-16-2025 36 Phone call to ashley [...] very active, no angina, no SOB. Normal [facility] Absolute lymphocyte countOrd ered By: Finn Ferrell on 01-15-2025 Lymphocytes Auto (Unsp spec) [#/Vol] 1.85 10*3/uL 0.83-4.51 [facility] Absolute neutrophil countOrd ered By: Finn Ferrell on 01-15-2025 Neutrophils (Bld) [#/Vol] 6.3 10*3/uL 2.0-7.7 [facility] Anion gap in Serum or Plasma Ordered By: Finn Ferrell on 01-15-2025 Anion gap [Moles/Vol] 13 mmol/L 5- [facility] Automated lymphocyte count a s percentage of total leukocytesOrdered By: Finn Ferrell on 01-15-2025 Lymphocytes/100 WBC Auto (Unsp spec) 21.0 % - [facility] BUN/creatinine ratioOrdered By: Finn Ferrell on 01-15-2025 Urea nitrogen/Creatinine [Mass ratio] 13.0 mg/mg 10- [facility] Basophil percentageOrdered B y: Finn Ferrell on 01-15-2025 Basophils/100 WBC (Bld) 0.6 % 0- [facility] Bilirubin, totalOrdered By: Finn Ferrell on 01-15-2025 Bilirubin [Mass/Vol] 0.93 mg/dL 0.00-1.30 [facility] CBC W/Diff, Automatedon 12-23 Absolute Lymph 1.85 X10 3/uL Normal 0.83-4.51 [facility] Comment on above: Order Comment: Order Date: 03/13/25 Order Info: 0786-1 - CMP Order Info: [id number] - IBC Performed By: #### L 506.0200, L400.0001, L506.1001, L503.0106 #### [facility] [address] [place], [address] Absolute Neut 6.3 X10 3/uL Normal 2.0-7.7 [facility] Comment on above: Order Comment: Order Date: 03/13/25 Order Info: 0786-1 - CMP Order Info: [id number] - IBC Performed By: #### L 506.0200, L400.0001, L506.1001, L503.0106 #### [facility] [address] [place], [address] Basophils/100 WBC (Bld) 0.6 % Normal 0-1 [facility] Comment on above: Order Comment: Order Date: 03/13/25 Order Info: 0786-1 - CMP Order Info: [id number] - IBC Performed By: #### L 506.0200, L400.0001, L506.1001, L503.0106 #### [facility] [address] [place], [address] Eosinophils/100 WBC (Bld) 0.8 % Normal 0-5 [facility] Comment on above: Order Comment: Order Date: 03/13/25 Order Info: 0786- - CMP Order Info: [id number] - IBC Performed By: #### L 506.0200, L400.0001, L506.1001, L503.0106 #### [facility] [address] [place], [address] Erythrocyte distribution width (RBC) [Ratio] 14.1 % Normal 11.6-14.6 [facility] Comment on above: Order Comment: Order Date: 03/13/25 Order Info: 0786-1 - CMP Order Info: [id number] - IBC Performed By: #### L 506.0200, L400.0001, L506.1001, L503.0106 #### [facility] [address] [place], [address] Hematocrit (Bld) [Volume fraction] 39.2 % Low 40-54 [facility] Comment on above: Order Comment: Order Date: 03/13/25 Order Info: 0786-1 - CMP Order Info: [id number] - IBC Performed By: #### L 506.0200, L400.0001, L506.1001, L503.0106 #### [facility] [address] [place], [address] Hemoglobin (Bld) [Mass/Vol] 12.7 g/dL Low 13.0-16.5 [facility] Comment on above: Order Comment: Order Date: 03/13/25 Order Info: 0786-1 - CMP Order Info: [id number] - IBC Performed By: #### L 506.0200, L400.0001, L506.1001, L503.0106 #### [facility] [address] [place], [address] IG% 0.800 Normal 0.0-0.9 [facility] Comment on above: Order Comment: Order Date: 03/13/25 Order Info: 0786- - CMP Order Info: [id number] - IBC Result Comment: IG% - Immature Granulocytes (promyelocytes, myelocytes and metamyelocytes) > 1% indicates that a LEFT SHIFT is Present. Performed By: #### L 506.0200, L400.0001, L506.1001, L503.0106 #### [facility] [address] [place], [address] Lymphocytes/100 WBC (Bld) 21.0 % Normal 19-41 [facility] Comment on above: Order Comment: Order Date: 03/13/25 Order Info: 0786-1 - CMP Order Info: [id number] - IBC Performed By: #### L 506.0200, L400.0001, L506.1001, L503.0106 #### [facility] [address] [place], [address] MCH (RBC) [Entitic mass] 30.4 pg Normal 27.0-32.0 [facility] Comment on above: Order Comment: Order Date: 03/13/25 Order Info: 0786-1 - CMP Order Info: [id number] - IBC Performed By: #### L 506.0200, L400.0001, L506.1001, L503.0106 #### [facility] [address] [place], [address] MCHC (RBC) [Mass/Vol] 32.4 g/dL Normal 32-36 [facility] Comment on above: Order Comment: Order Date: 03/13/25 Order Info: 0786-1 - CMP Order Info: [id number] - IBC Performed By: #### L 506.0200, L400.0001, L506.1001, L503.0106 #### [facility] [address] [place], [address] MCV (RBC) [Entitic vol] 93.8 fL Normal 80-94 [facility] Comment on above: Order Comment: Order Date: 03/13/25 Order Info: 0786- - CMP Order Info: [id number] - IBC Performed By: #### L 506.0200, L400.0001, L506.1001, L503.0106 #### [facility] [address] [place], [address] Monocytes/100 WBC (Bld) 5.7 % Normal 0-10 [facility] Comment on above: Order Comment: Order Date: 03/13/25 Order Info: 0786- - CMP Order Info: [id number] - IBC Performed By: #### L 506.0200, L400.0001, L506.1001, L503.0106 #### [facility] [address] [place], [address] Neutrophils/100 WBC (Bld) 71.1 % High 47-70 [facility] Comment on above: Order Comment: Order Date: 03/13/25 Order Info: 0786-1 - CMP Order Info: [id number] - IBC Performed By: #### L 506.0200, L400.0001, L506.1001, L503.0106 #### [facility] [address] [place], [address] Nucleated RBC (Bld) [#/Vol] 0 10*3/uL Normal 0-5 [facility] Comment on above: Order Comment: Order Date: 03/13/25 Order Info: 0786-1 - CMP Order Info: [id number] - IBC Performed By: #### L 506.0200, L400.0001, L506.1001, L503.0106 #### [facility] [address] [place], [address] Platelet mean volume (Bld) [Entitic vol] 9.6 fL Normal 6.2-12.0 [facility] Comment on above: Order Comment: Order Date: 03/13/25 Order Info: 0786-1 - CMP Order Info: [id number] - IBC Performed By: #### L 506.0200, L400.0001, L506.1001, L503.0106 #### [facility] [address] [place], [address] Platelets (Bld) [#/Vol] 257 10*3/uL Normal 150-450 [facility] Comment on above: Order Comment: Order Date: 03/13/25 Order Info: 0786-1 - CMP Order Info: [id number] - IBC Performed By: #### L 506.0200, L400.0001, L506.1001, L503.0106 #### [facility] [address] [place], [address] RBC (Bld) [#/Vol] 4.18 10*6/uL Low 4.6-6.2 [facility] Comment on above: Order Comment: Order Date: 03/13/25 Order Info: 0786-1 - CMP Order Info: [id number] - IBC Performed By: #### L 506.0200, L400.0001, L506.1001, L503.0106 #### [facility] [address] [place], [address] RDW SD 48.0 fl High 35.1-43.9 [facility] Comment on above: Order Comment: Order Date: 03/13/25 Order Info: 0786-1 - CMP Order Info: [id number] - IBC Performed By: #### L 506.0200, L400.0001, L506.1001, L503.0106 #### [facility] [address] [place], [place], [address] WBC (Bld) [#/Vol] 8.8 10*3/uL Normal 4.4-11.0 [facility] Comment on above: Order Comment: Order Date: 03/13/25 Order Info: 0786-1 - CMP Order Info: [id number] - IBC Performed By: #### L 506.0200, L400.0001, L506.1001, L503.0106 #### [facility] [address] [place], [place], [address] Calculated very low density lipoprotein (VLDL) cholesterol measurementOrdered By: Finn Ferrell on 01-15-2025 Calculated very low density lipoprotein (VLDL) cholesterol measurement 33 mg/dL 5-40 [facility] Carbon dioxide, total [Moles /volume] in Central venous bloodOrdered By: Finn Ferrell on 01-15-2025 CO2 [Moles/Vol] 24.0 mmol/L 21.0-32.0 [facility] Chloride assayOrdered By: Tanika Ferrell on 01-15-2025 Chloride [Moles/Vol] 104 mmol/L 98-108 [facility] Comprehensive Metabolic Prof ilon 01-15-2025 Albumin [Mass/Vol] 4.3 g/dL Normal 3.4-4.8 [facility] Comment on above: Order Comment: Order Date: 03/13/25 Order Info: 0786-1 - CMP Order Info: [id number] - IBC Performed By: #### L 506.0200, L400.0001, L506.1001, L503.0106 #### [facility] [address] [place], [place], [address] Albumin/Globulin [Mass ratio] 1.5 {ratio} Normal 0.9-2.4 [facility] Comment on above: Order Comment: Order Date: 03/13/25 Order Info: 0786-1 - CMP Order Info: [id number] - IBC Performed By: #### L 506.0200, L400.0001, L506.1001, L503.0106 #### [facility] [address] [place], [address] ALK PHOS 94 U/L Normal 40-129 [facility] Comment on above: Order Comment: Order Date: 03/13/25 Order Info: 0786- - CMP Order Info: [id number] - IBC Performed By: #### L 506.0200, L400.0001, L506.1001, L503.0106 #### [facility] [address] [place], [address] ALT [Catalytic activity/Vol] 29 U/L Normal <=46 [facility] Comment on above: Order Comment: Order Date: 03/13/25 Order Info: 0786-1 - CMP Order Info: [id number] - IBC Performed By: #### L 506.0200, L400.0001, L506.1001, L503.0106 #### [facility] [address] [place], [address] AST [Catalytic activity/Vol] 19 U/L Normal <=37 [facility] Comment on above: Order Comment: Order Date: 03/13/25 Order Info: 0786-1 - CMP Order Info: [id number] - IBC Performed By: #### L 506.0200, L400.0001, L506.1001, L503.0106 #### [facility] [address] [place], [address] Bilirubin [Mass/Vol] 0.93 mg/dL Normal 0.00-1.30 [facility] Comment on above: Order Comment: Order Date: 03/13/25 Order Info: 0786-1 - CMP Order Info: [id number] - IBC Performed By: #### L 506.0200, L400.0001, L506.1001, L503.0106 #### [facility] [address] [place], [address] BUN/CRE 13.0 RATIO Normal 10-20 [facility] Comment on above: Order Comment: Order Date: 03/13/25 Order Info: 0786-1 - CMP Order Info: [id number] - IBC Performed By: #### L 506.0200, L400.0001, L506.1001, L503.0106 #### [facility] [address] [place], [address] Calcium [Mass/Vol] 9.5 mg/dL Normal 7.6-11.0 [facility] Comment on above: Order Comment: Order Date: 03/13/25 Order Info: 0786-1 - CMP Order Info: [id number] - IBC Performed By: #### L 506.0200, L400.0001, L506.1001, L503.0106 #### [facility] [address] [place], [address] Chloride [Moles/Vol] 104 mmol/L Normal 98-108 [facility] Comment on above: Order Comment: Order Date: 03/13/25 Order Info: 0786-1 - CMP Order Info: [id number] - IBC Performed By: #### L 506.0200, L400.0001, L506.1001, L503.0106 #### [facility] [address] [place], [address] CO2 [Moles/Vol] 24.0 mmol/L Normal 21.0-32.0 [facility] Comment on above: Order Comment: Order Date: 03/13/25 Order Info: 0786-1 - CMP Order Info: [id number] - IBC Performed By: #### L 506.0200, L400.0001, L506.1001, L503.0106 #### [facility] [address] [place], [address] Creatinine [Mass/Vol] 1.63 mg/dL High 0.70-1.20 [facility] Comment on above: Order Comment: Order Date: 03/13/25 Order Info: 0786-1 - CMP Order Info: [id number] - IBC Performed By: #### L 506.0200, L400.0001, L506.1001, L503.0106 #### [facility] [address] [place], [address] GAP 13 Normal 5-15 [facility] Comment on above: Order Comment: Order Date: 03/13/25 Order Info: 0786-1 - CMP Order Info: [id number] - IBC Performed By: #### L 506.0200, L400.0001, L506.1001, L503.0106 #### [facility] [address] [place], [address] GFR/1.73 sq M.predicted among non-blacks MDRD (S/P/Bld) [Vol rate/Area] 45 mL/min/{1.73_m2} Low >60 [facility] Comment on above: Order Comment: Order Date: 03/13/25 Order Info: 0786-1 - CMP Order Info: [id number] - IBC Result Comment: mL/m in/1.73m2 CKD-EPI Creatinine Equation (2020) Performed By: #### L 506.0200, L400.0001, L506.1001, L503.0106 #### [facility] [address] [place], [address] Globulin (S) [Mass/Vol] 2.9 g/dL Normal 2.2-4.2 [facility] Comment on above: Order Comment: Order Date: 03/13/25 Order Info: 0786-1 - CMP Order Info: [id number] - IBC Performed By: #### L 506.0200, L400.0001, L506.1001, L503.0106 #### [facility] [address] [place], [address] Glucose [Mass/Vol] 122 mg/dL High 70-99 [facility] Comment on above: Order Comment: Order Date: 03/13/25 Order Info: 0786 - CMP Order Info: [id number] - IBC Performed By: #### L 506.0200, L400.0001, L506.1001, L503.0106 #### [facility] [address] [place], [address] Potassium [Moles/Vol] 4.3 mmol/L Normal 3.3-5.1 [facility] Comment on above: Order Comment: Order Date: 03/13/25 Order Info: 0786 - CMP Order Info: [id number] - IBC Performed By: #### L 506.0200, L400.0001, L506.1001, L503.0106 #### [facility] [address] [place], [address] Sodium [Moles/Vol] 140 mmol/L Normal 133-145 [facility] Comment on above: Order Comment: Order Date: 03/13/25 Order Info: 0786- - CMP Order Info: [id number] - IBC Performed By: #### L 506.0200, L400.0001, L506.1001, L503.0106 #### [facility] [address] [place], [address] T PROT 7.2 g/dL Normal 5.9-8.4 [facility] Comment on above: Order Comment: Order Date: 03/13/25 Order Info: 0786- - CMP Order Info: [id number] - IBC Performed By: #### L 506.0200, L400.0001, L506.1001, L503.0106 #### [facility] [address] [place], [place], [address] Urea nitrogen [Mass/Vol] 21 mg/dL High 4-19 [facility] Comment on above: Order Comment: Order Date: 03/13/25 Order Info: 0786-1 - CMP Order Info: [id number] - IBC Performed By: #### L 506.0200, L400.0001, L506.1001, L503.0106 #### [facility] [address] [place], [place], [id number] Eosinophil percentageOrdered By: Finn Ferrell on 01-15-2025 Eosinophils/100 WBC (Bld) 0.8 % 0-5 [facility] Erythrocyte distribution wid th ratioOrdered By: Finn Ferrell on 01-15-2025 Erythrocyte distribution width (RBC) [Ratio] 14.1 % 11.6-14.6 [facility] Erythrocyte distribution wid th standard deviationOrdered By: Finn Ferrell on 01-15-2025 Erythrocyte distribution width (RBC) [Ratio] 48.0 fl High 35.1-43.9 [facility] Glomerular filtration rate ( GFR) estimation/1.73 sq m using serum, plasma, or whole bOrdered By: Finn Ferrell on 01-15-2025 GFR/1.73 sq M.predicted among non-blacks MDRD (S/P/Bld) [Vol rate/Area] 45 mL/min/{1.73_m2} Low >60 [facility] Comment on above: mL/min/1.73m2 CKD-EP I Creatinine Equation (2020) Hematocrit Auto (Bld) [Volum e fraction]Ordered By: Finn Ferrell on 01-15-2025 Hematocrit (Bld) [Volume fraction] 39.2 % Low 40-54 [facility] Hemoglobin measurementOrdere d By: Finn Ferrell on 01-15-2025 Hemoglobin (Bld) [Mass/Vol] 12.7 g/dL Low 13.0-16.5 [facility] Immature granulocytes/100 WB C Auto (Bld)Ordered By: Finn Ferrell on 01-15-2025 Immature granulocytes/100 WBC (Bld) 0.800 % 0.0-0.9 [facility] Comment on above: IG% - Immature Granu locytes (promyelocytes, myelocytes and metamyelocytes) > 1% indicates that a LEFT SHIFT is Present. Iron measurement (mass/mass) Ordered By: Finn Ferrell on 01-15-2025 Iron (Unsp spec) [Mass/Mass] 114 ug/dL 65-175 [facility] LDL calc ser/plasOrdered By: Finn Ferrell on 01-15-2025 Cholesterol in LDL [Mass/Vol] 58 mg/dL [facility] Comment on above: Qrcmlreipn=831-061 m g/dL & Higher Pltx=682 mg/dL or greaterFriedwald Equation for LDL-C Laboratory - Chemistry and C hemistry - challengeOrdered By: Finn Ferrell on 01-15-2025 AST [Catalytic activity/Vol] 19 U/L <38 [facility] Lipid Profileon 01-15-2025 CHOL:HDL 2.84 Normal [facility] Comment on above: Order Comment: Order Date: 03/13/25 Order Info: 0786-1 - CMP Order Info: [id number] - IBC Performed By: #### L 506.0200, L400.0001, L506.1001, L503.0106 #### [facility] [address] [place], [place], [id number] ([address]) Cholesterol [Mass/Vol] 141 mg/dL Normal <=200 [facility] Comment on above: Order Comment: Order Date: 03/13/25 Order Info: 0786-1 - CMP Order Info: [id number] - IBC Result Comment: Chol esterol level, Desirable <200 mg/dL Borderline high cholesterol 200-239 mg/dL High cholesterol >=240 mg/dL Recommendations of the NCEP Adult Treatment Panel for the following risk-cutoff thresholds for the [place] population. Performed By: #### L 506.0200, L400.0001, L506.1001, L503.0106 #### [facility] [address] [place], [address] Cholesterol in HDL [Mass/Vol] 50 mg/dL Normal [facility] Comment on above: Order Comment: Order Date: 03/13/25 Order Info: 0786-1 - CMP Order Info: [id number] - IBC Result Comment: Lisa onal Cholesterol Education Program (NCEP) guidelines: <40 mg/dL: Low HDL-cholesterol (major risk factor for CHD) >= 60 mg/dL: High HDL-cholesterol (negative risk factor for CHD) HDL-cholesterol is affected by a number of factors, e.g. smoking, exercise, hormones, sex and age. Performed By: #### L 506.0200, L400.0001, L506.1001, L503.0106 #### [facility] [address] [place], [address] Cholesterol in LDL [Mass/Vol] 58 mg/dL Normal [facility] Comment on above: Order Comment: Order Date: 03/13/25 Order Info: 0786-1 - CMP Order Info: [id number] - IBC Result Comment: Bord hnclyy=536-732 mg/dL Higher Glcu=319 mg/dL or greater Friedwald Equation for LDL-C Performed By: #### L 506.0200, L400.0001, L506.1001, L503.0106 #### [facility] [address] [place], [address] Cholesterol in VLDL [Mass/Vol] 33 mg/dL Normal 5-40 [facility] Comment on above: Order Comment: Order Date: 03/13/25 Order Info: 0786-1 - CMP Order Info: [id number] - IBC Performed By: #### L 506.0200, L400.0001, L506.1001, L503.0106 #### [facility] [address] [place], [address] Triglyceride [Mass/Vol] 167 mg/dL Normal [facility] Comment on above: Order Comment: Order Date: 03/13/25 Order Info: 0786-1 - CMP Order Info: [id number] - IBC Result Comment: The drugs N-Acetylcysteine and Metamizole may falsely depress this assay. Normal range: <150 mg/dL Borderline High: 150-199 mg/dL High: 200-499 mg/dL Very High: >500 mg/dL Performed By: #### L 506.0200, L400.0001, L506.1001, L503.0106 #### [facility] [address] [place], [place], [address] MCV (mean corpuscular volume ) determinationOrdered By: Finn Ferrell on 01-15-2025 MCV (RBC) [Entitic vol] 93.8 fL 80-94 [facility] Magnesiumon 01-15-2025 Magnesium [Mass/Vol] 2.2 mg/dL Normal 1.5-2.2 [facility] Comment on above: Order Comment: Order Date: 03/13/25 Order Info: 0786-1 - CMP Order Info: [id number] - IBC Performed By: #### L 506.0200, L400.0001, L506.1001, L503.0106 #### [facility] [address] [place], [address] Magnesium measurement (mass/ volume)Ordered By: Finn Ferrell on 01-15-2025 Magnesium (Unsp spec) [Mass/Vol] 2.2 mg/dL 1.5-2.2 [facility] Mean corpuscular hemoglobin (MCH) determinationOrdered By: Finn Ferrell on 01-15-2025 MCH (RBC) [Entitic mass] 30.4 pg 27.0-32.0 [facility] Mean corpuscular hemoglobin concentration (MCHC) determinationOrdered By: Finn Ferrell on 01-15-2025 MCHC (RBC) [Mass/Vol] 32.4 g/dL 32-36 [facility] Mean platelet volume determi nationOrdered By: Finn Ferrell on 01-15-2025 Platelet mean volume (Bld) [Entitic vol] 9.6 fL 6.2-12.0 [facility] Monocyte percentageOrdered B y: Finn Ferrell on 01-15-2025 Monocytes/100 WBC (Bld) 5.7 % 0-10 [facility] Neutrophil percentageOrdered By: Finn Ferrell on 01-15-2025 Neutrophils/100 WBC (Bld) 71.1 % High 47-70 [facility] No Panel InformationOrdered By: Finn Ferrell on 01-15-2025 Unsaturated Iron Binding Capacity 171 ug/dL Low 228-428 [facility] Nucleated red blood cell per centageOrdered By: Finn Ferrell on 01-15-2025 Nucleated RBC/100 WBC (Bld) [Ratio] 0 % 0-5 [facility] PTHINon 01-15-2025 PTH 55 pg/mL Normal 11-61 [facility] Comment on above: Order Comment: Order Date: 03/13/25 Order Info: 0786-1 - CMP Order Info: [id number] - IBC Performed By: #### L 506.0200, L400.0001, L506.1001, L503.0106 #### [facility] [address] [place], [address] Platelet countOrdered By: Tanika Ferrell on 01-15-2025 Platelets (Bld) [#/Vol] 257 10*3/uL 150-450 [facility] Potassium measurement (mass/ volume)Ordered By: Finn Ferrell on 01-15-2025 Potassium (Unsp spec) [Mass/Vol] 4.3 mmol/L 3.3-5.1 [facility] Protein+Creatinine Ratio,Uri neon 01-15-2025 PROT:CRE RATIO 126 mg/g CRE Normal 0-200 [facility] Comment on above: Order Comment: DR.SC REYNOSO ORDERED VITD CBC PTHIN PROCRE URINE URIC MAG CMP TSH LIPID FRANCE SPAIN ORDERED CMP TSH CBCD LIPID Order Date: 01/12/25 Order Info: 0786-1 - CMP Order Info: [id number] - LIPID Order Info: [id number] - URIC Order Info: [id number] - MG Order Info: [id number] - TSH Performed By: #### L 501.0900, L506.1001, L503.6030, L503.6550 #### [facility] [address] [place], [address] PROTEIN,UR.RAN. < 6.0 Normal 0.0-12.0 [facility] Comment on above: Order Comment: DR.SC REYNOSO ORDERED VITD CBC PTHIN PROCRE URINE URIC MAG CMP TSH LIPID FRANCE SPAIN ORDERED CMP TSH CBCD LIPID Order Date: 01/12/25 Order Info: 86-1 - CMP Order Info: [id number] - LIPID Order Info: [id number] - URIC Order Info: [id number] - MG Order Info: [id number] - TSH Performed By: #### L 501.0900, L506.1001, L503.6030, L503.6550 #### [facility] [address] [place], [place], [id number] UR CREAT 17.90 mg/dL Low 39.00-259. 00 [facility] Comment on above: Order Comment: DR.SC REYNOSO ORDERED VITD CBC PTHIN PROCRE URINE URIC MAG CMP TSH LIPID FRANCE SPAIN ORDERED CMP TSH CBCD LIPID Order Date: 01/12/25 Order Info: [id number] - CMP Order Info: - LIPID Order Info: [id number] - URIC Order Info: [id number] - MG Order Info: 6-3 - TSH Performed By: #### L 501.0900, L506.1001, L503.6030, L503.6550 #### [facility] [address] [place], [place], [id number] RBC Auto (Bld) [#/Vol]Ordere d By: Finn Ferrell on 01-15-2025 RBC (Bld) [#/Vol] 4.18 10*6/uL Low 4.6-6.2 [facility] Random urine creatinine renu urement (mass/volume)Ordered By: Finn Ferrell on 01-15-2025 Creatinine Unsp time (U) [Mass/Vol] 17.90 mg/dL Low 39.00-259. 00 [facility] Screening total cholesterol/ high density lipoprotein (HDL) cholesterol ratioOrdered By: Finn Ferrell on 01-15-2025 Cholesterol.total/Chol esterol in HDL [Mass ratio] 2.84 {ratio} [facility] Serum creatinine measurement (mass/volume)Ordered By: Finn Ferrell on 01-15-2025 Creatinine [Mass/Vol] 1.63 mg/dL High 0.70-1.20 [facility] Serum globulin measurementOr dered By: Finn Ferrell on 01-15-2025 Globulin (S) [Mass/Vol] 2.9 g/dL 2.2-4.2 [facility] Serum glucose measurement (m ass/volume)Ordered By: Finn Ferrell on 01-15-2025 Glucose [Mass/Vol] 122 mg/dL High 70-99 [facility] Serum or plasma alanine newman otransferase (ALT) measurementOrdered By: Finn Ferrell on 01-15-2025 ALT [Catalytic activity/Vol] 29 U/L <47 [facility] Serum or plasma albumin renu urement (mass/volume)Ordered By: Finn Ferrell on 01-15-2025 Albumin [Mass/Vol] 4.3 g/dL 3.4-4.8 [facility] Serum or plasma albumin/glob ulin mass ratioOrdered By: Finn Ferrell on 01-15-2025 Albumin/Globulin [Mass ratio] 1.5 {ratio} 0.9-2.4 [facility] Serum or plasma alkaline christal sphatase measurementOrdered By: Finn Ferrell on 01-15-2025 ALP [Catalytic activity/Vol] 94 U/L 40-129 [facility] Serum or plasma calcium renu urement (mass/volume)Ordered By: Finn Ferrell on 01-15-2025 Calcium [Mass/Vol] 9.5 mg/dL 7.6-11.0 [facility] Serum or plasma cholesterol in HDL measurement (mass/volume)Ordered By: Finn Ferrell on 01-15-2025 Cholesterol in HDL [Mass/Vol] 50 mg/dL >40 [facility] Comment on above: National Cholesterol Education Program (NCEP) guidelines:<40 mg/dL: Low HDL-cholesterol (major risk factor for CHD)>= 60 mg/dL: High HDL-cholesterol (negative risk factor for CHD)HDL-cholesterol is affected by a number of factors, e.g. smoking, exercise, hormones, sex and age. Serum or plasma cholesterol measurement (mass/volume)Ordered By: Finn Ferrell on 01-15-2025 Cholesterol [Mass/Vol] 141 mg/dL <201 [facility] Comment on above: Cholesterol level, D esirable <200 mg/dLBorderline high cholesterol 200-239 mg/dLHigh cholesterol >=240 mg/dLRecommendations of the NCEP Adult Treatment Panel for the following risk-cutoff thresholds for the [place] population. Serum or plasma ferritin ellen surement (mass/volume)Ordered By: Finn Ferrell on 01-15-2025 Ferritin [Mass/Vol] 606 ng/mL High 37-417 [facility] Serum or plasma iron saturat ion measurement (mass fraction)Ordered By: Finn Ferrell on 01-15-2025 Iron saturation [Mass fraction] 40.0 % 9-55 [facility] Serum or plasma urea nitroge n measurement (mass/volume)Ordered By: Finn Ferrell on 01-15-2025 Urea nitrogen [Mass/Vol] 21 mg/dL High 4-19 [facility] Serum or plasma uric acid me asurement (mass/volume)Ordered By: Finn Ferrell on 01-15-2025 Urate [Mass/Vol] 7.9 mg/dL High 3.5-7.2 [facility] Comment on above: The drugs N-Acetylcy steine and Metamizole may falsely depress this assay. Sodium levelOrdered By: Finn Ferrell on 01-15-2025 Sodium [Moles/Vol] 140 mmol/L 133-145 [facility] TSH DL <= 0.005 mIU/L QnOrde red By: Finn Ferrell on 01-15-2025 TSH Qn 1.480 uIU/mL 0.300-4.20 0 [facility] Thyroid Stim Hormone (TSH)on 01-15-2025 TSH 1.480 uIU/mL Normal 0.300-4.20 0 [facility] Comment on above: Order Comment: N Performed By: #### L 506.0200, L400.0001, L506.1001, L503.0106 #### [facility] [address] [place], [address] Total proteinOrdered By: Benedicto Ferrell on 01-15-2025 Protein [Mass/Vol] 7.2 g/dL 5.9-8.4 [facility] Triglycerides measurementOrd ered By: Finn Ferrell on 01-15-2025 Triglyceride [Mass/Vol] 167 mg/dL <199 [facility] Comment on above: The drugs N-Acetylcy steine and Metamizole may falsely depress this assay. Normal range: <150 mg/dLBorderline High: 150-199 mg/dLHigh: 200-499 mg/dLVery High: >500 mg/dL Uric Acidon 01-15-2025 URIC 7.9 mg/dL High 3.5-7.2 [facility] Comment on above: Order Comment: Order Date: 03/13/25 Order Info: [id number] - CMP Order Info: [id number] - IBC Result Comment: The drugs N-Acetylcysteine and Metamizole may falsely depress this assay. Performed By: #### L 506.0200, L400.0001, L506.1001, L503.0106 #### [facility] [address] [place] [address]. [place], [address] Urine protein measurement (m ass/volume)Ordered By: Finn Ferrell on 01-15-2025 Protein (U) [Mass/Vol] mg/dL 0.0-12.0 [facility] Urine protein/creatinine mas s ratioOrdered By: Finn Ferrell on 01-15-2025 Protein/Creatinine (U) [Mass ratio] 126 mg/g CRE 0-200 [facility] Vitamin D,25 Hydroxyon 01-15 Vitamin D 25-OH 42.1 ng/mL Normal 30-100 [facility] Comment on above: Order Comment: DR.SC REYNOSO ORDERED VITD CBC PTHIN PROCRE URINE URIC MAG CMPTSH LIPIDELIZADEDRA SPAIN ORDERED CMP TSH CBCD LIPIDOrder Date: 01/12/25Order Info: [id number] - CMPOrder Info: [id number] - LIPIDOrder Info: [id number] - URICOrder Info: [id number] - MGOrder Info: [id number] - TSH Result Comment: Purnima min D Status Deficiency: <20 ng/mL (50nmol/L) Insufficiency: 20-30 ng/mL (50-75 nmol/L) Sufficiency: 30-100 ng/mL (75-250 nmol/L) Toxicity: >100 ng/mL (>250 nmol/L) Performed By: #### L 100.0500, L500.4050, L501.9520 #### [facility] [address] [place], [address] White blood cell (WBC) count Ordered By: Finn Ferrell on 01-15-2025 WBC (Bld) [#/Vol] 8.8 10*3/uL 4.4-11.0 [facility] 37on 12-28-2024 37 Reduce Imdur 60 mg ( one tablet ) once a day. Normal [facility] Office Visiton 12-28-2024 Follow-up visit [id number] Shannon Olson 1955 M Date Provider Department Center 12/28/2024 [facility] [address] Ar Family History Problem Relation Age of Onset Diabetes Paternal Grandmother Diabetes Maternal Grandfather Cancer Sister Hypertension Mother Diabetes Sister Diabetes Paternal Grandfather Heart disease Paternal Grandmother Heart disease Paternal Grandfather Cancer Father Diabetes Brother Family Status - Relation Status Age at Paternal Grandmother Maternal Grandfather Sister Mother Alive Paternal Grandfather Father Brother Level of Service:04522 OR OFFICE/OUTPATIENT ESTABLISHED MOD MDM 30 MIN Reason for Visit and Comments: Coronary Artery Disease [187] Normal [facility] Progress Noteon 12-28-2024 Progress Note [facility] [address] [address] Dept: [phone] Dept Visit Type: Established NAME: Shannon Olson : 1955 Reason for Visit: Coronary Artery Disease Subjective HPI Shannon Olson is an 69 y.o. male, followed by Dr. Ortega, with PMH of CAD, s/p multiple coronary stenting, NSTEMI, HTN, HLD, Afib on OAC, GERD, HIOPLITO, obesity, TIA who presents for a [facility] on 09/14 for increased daily angina despite [...] ezetimibe (ZETIA) 10 mg, Oral, Daily HYDROcodone-acetaminophen ([place]) 5-325 MG tablet 1 tablet, Every 6 [...] Past Medical History: Diagnosis Date Angina pectoris ([facility]) Anxiety Arrhythmia A-fib Asthma CAD (coronary artery disease) Cerebral artery occlusion with cerebral infarction ([facility]) COPD (chronic obstructive pulmonary disease) ([facility]) Depression WATTS (dyspnea on exertion) Fatigue GERD (gastroesophageal reflux disease) History of cardioversion 05/07/2016 Successful conversion of a-fib to SR History of left heart catheterization 05/07/2016 60% stenosis right posterior descending, patent stents in prox, mid & distal RCA, patent stents in med LCx. Findings unchanged from previous study. 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 group home current use of antiarrhythmic drug group home current use of anticoagulant NSTEMI (non-ST elevated myocardial infarction) ([facility]) 12/2012 NSTEMI (non-ST elevated myocardial infarction) ([facility]) 05/2014 Obesity Old MD (myocardial infarction) HIPOLITO (obstructive sleep apnea) HIPOLITO on CPAP PAF (paroxysmal atrial fibrillation) ([facility]) Rheumatoid arthritis(714.0) ([facility]) ST segment elevation myocardial infarction (STEMI) of anterolateral wall, subsequent episode of care ([facility]) TIA (transient ischemic attack) Social History Tobacco Use Smoking status: Never Smokeless tobacco: Never Substance Use Topics Alcohol use: Not Currently Past Surgical History: Procedure Laterality Date CAPSULOTOMY, HAND 05/07/2016 CARDIAC CATHETERIZATION N/A 03/01/2023 Performed by Zoie Gonzales MD at [facility] Cardiac Cath/EP Lab CARDIAC CATHETERIZATION Left 09/14/2024 Performed by Dominguez Ortega MD at [facility] Cardiac Cath/EP Lab CARDIAC CATHETERIZATION N/A 09/14/2024 Performed by Dominguez Ortega MD at [facility] Cardiac Cath/EP Lab CARDIAC CATHETERIZATION N/A 09/14/2024 Performed by Dominguez Ortega MD at [facility] Cardiac Cath/EP Lab CARDIAC CATHETERIZATION N/A 09/14/2024 Performed by Dominguez Ortega MD at [facility] Cardiac Cath/EP Lab CARDIAC PROCEDURE Left 05/2015 CARDIAC PROCEDURE Left 06/03/2017 CARDIAC PROCEDURE Bilateral 01/2010 CARDIAC PROCEDURE Left 09/05/2019 PCI to distal RCA and PL branch CHOLECYSTECTOMY 10/30/2019 CORONARY ANGIOPLASTY WITH STENT PLACEMENT Left 11/2006 restent RCA, PHU to CX CORONARY ANGIOPLASTY WITH STENT PLACEMENT Left 05/2014 PTCA /cuttung balloon to instent restenosis RCA CORONARY ANGIOPL (more content not included)... Normal [facility] 36on 12-18-2024 36 Attempted to call latia bryant to discuss lab draw. LMOM. Normal [facility] 36on 11-30-2024 36 ISACC E. [place] 09/28/24, CMP completed 09/15/24. 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 Normal [facility] 36 Requesting refill to rsemide (Demadex) 20 MG tablet [place] pharm verified Normal [facility] Absolute lymphocyte countOrd ered By: Cooper Francis on 11-15-2024 Lymphocytes Auto (Unsp spec) [#/Vol] 2.11 10*3/uL 0.83-4.51 [facility] Absolute neutrophil countOrd ered By: Cooper Francis on 11-15-2024 Neutrophils (Bld) [#/Vol] 11.8 10*3/uL High 2.0-7.7 [facility] Anion gap in Serum or Plasma Ordered By: Finn Ferrell on 11-15-2024 Anion gap [Moles/Vol] 13 mmol/L 10-05 [facility] Anion gap in Serum or Plasma Ordered By: Cooper Francis on 11-15-2024 Anion gap [Moles/Vol] 15 mmol/L 10-05 [facility] Automated lymphocyte count a s percentage of total leukocytesOrdered By: Cooper Francis on 11-15-2024 Lymphocytes/100 WBC Auto (Unsp spec) 13.8 % Low 19-41 [facility] BUN/creatinine ratioOrdered By: Finn Ferrell on 11-15-2024 Urea nitrogen/Creatinine [Mass ratio] 15.5 mg/mg 03-12 [facility] BUN/creatinine ratioOrdered By: Cooper Francis on 11-15-2024 Urea nitrogen/Creatinine [Mass ratio] 13.7 mg/mg 03-12 [facility] Basic Metabolic Profile (BMP )on 11-15-2024 BUN/CRE 13.7 RATIO Normal 03-12 [facility] Comment on above: Performed By: #### L 100.0500, L500.4050, L501.1420 #### [facility] [address] [place], [address] Calcium [Mass/Vol] 10.1 mg/dL Normal 7.6-11.0 [facility] Comment on above: Performed By: #### L 100.0500, L500.4050, L501.9520 #### [facility] [address] [place], [address] Chloride [Moles/Vol] 102 mmol/L Normal 98-108 [facility] Comment on above: Performed By: #### L 100.0500, L500.4050, L501.9520 #### [facility] [address] [place], [address] CO2 [Moles/Vol] 20.3 mmol/L Low 21.0-32.0 [facility] Comment on above: Performed By: #### L 100.0500, L500.4050, L501.9520 #### [facility] [address] [place], [address] Creatinine [Mass/Vol] 2.38 mg/dL High 0.70-1.20 [facility] Comment on above: Performed By: #### L 100.0500, L500.4050, L501.9520 #### [facility] [address] [place], [address] ECRCL 43.46 ml/min Low 50-250 [facility] Comment on above: Performed By: #### L 100.0500, L500.4050, L501.9520 #### [facility] [address] [place], [address] GAP 15 Normal 5-15 [facility] Comment on above: Performed By: #### L 100.0500, L500.4050, L501.9520 #### [facility] [address] [place], [address] GFR/1.73 sq M.predicted among non-blacks MDRD (S/P/Bld) [Vol rate/Area] 29 mL/min/{1.73_m2} Low >60 [facility] Comment on above: Result Comment: mL/m in/1.73m2 CKD-EPI Creatinine Equation (2020) Performed By: #### L 100.0500, L500.4050, L501.9520 #### [facility] [address] [place], [address] Glucose [Mass/Vol] 122 mg/dL High 70-99 [facility] Comment on above: Performed By: #### L 100.0500, L500.4050, L501.9520 #### [facility] [address] [place], [address] Potassium [Moles/Vol] 5.4 mmol/L High 3.3-5.1 [facility] Comment on above: Result Comment: Hemo lysis present, Results??could be affected. ?? Performed By: #### L 100.0500, L500.4050, L501.9520 #### [facility] [address] [place], [address] Sodium [Moles/Vol] 138 mmol/L Normal 133-145 [facility] Comment on above: Performed By: #### L 100.0500, L500.4050, L501.9520 #### [facility] [address] [place], [address] Urea nitrogen [Mass/Vol] 33 mg/dL High 4-19 [facility] Comment on above: Performed By: #### L 100.0500, L500.4050, L501.9520 #### [facility] [address] [place], [address] Basophil percentageOrdered B y: Cooper Francis on 11-15-2024 Basophils/100 WBC (Bld) 0.5 % 0-1 [facility] Bilirubin, totalOrdered By: Finn Ferrell on 11-15-2024 Bilirubin [Mass/Vol] 1.28 mg/dL 0.00-1.30 [facility] CBC W/Diff, Automatedon 10-23 Absolute Lymph 2.11 X10 3/uL Normal 0.83-4.51 [facility] Comment on above: Performed By: #### L 100.0500, L500.4050, L501.9520 #### [facility] [address] [place], [address] Absolute Neut 11.8 X10 3/uL High 2.0-7.7 [facility] Comment on above: Performed By: #### L 100.0500, L500.4050, L501.9520 #### [facility] [address] [place], [address] Basophils/100 WBC (Bld) 0.5 % Normal 0-1 [facility] Comment on above: Performed By: #### L 100.0500, L500.4050, L501.9520 #### [facility] [address] [place], [address] Eosinophils/100 WBC (Bld) 0.6 % Normal 0-5 [facility] Comment on above: Performed By: #### L 100.0500, L500.4050, L501.9520 #### [facility] [address] [place], [address] Erythrocyte distribution width (RBC) [Ratio] 14.9 % High 11.6-14.6 [facility] Comment on above: Performed By: #### L 100.0500, L500.4050, L501.9520 #### [facility] [address] [place], [address] Hematocrit (Bld) [Volume fraction] 43.4 % Normal 40-54 [facility] Comment on above: Performed By: #### L 100.0500, L500.4050, L501.9520 #### [facility] [address] [place], [address] Hemoglobin (Bld) [Mass/Vol] 14.3 g/dL Normal 13.0-16.5 [facility] Comment on above: Performed By: #### L 100.0500, L500.4050, L501.9520 #### [facility] [address] [place], [address] IG% 0.700 Normal 0.0-0.9 [facility] Comment on above: Result Comment: IG% - Immature Granulocytes (promyelocytes, myelocytes and metamyelocytes) > 1% indicates that a LEFT SHIFT is Present. Performed By: #### L 100.0500, L500.4050, L501.9520 #### [facility] [address] [place], [address] Lymphocytes/100 WBC (Bld) 13.8 % Low 19-41 [facility] Comment on above: Performed By: #### L 100.0500, L500.4050, L501.9520 #### [facility] [address] [place], [address] MCH (RBC) [Entitic mass] 30.7 pg Normal 27.0-32.0 [facility] Comment on above: Performed By: #### L 100.0500, L500.4050, L501.9520 #### [facility] [address] [place], [address] MCHC (RBC) [Mass/Vol] 32.9 g/dL Normal 32-36 [facility] Comment on above: Performed By: #### L 100.0500, L500.4050, L501.9520 #### [facility] [address] [place], [address] MCV (RBC) [Entitic vol] 93.1 fL Normal 80-94 [facility] Comment on above: Performed By: #### L 100.0500, L500.4050, L501.9520 #### [facility] [address] [place], [address] Monocytes/100 WBC (Bld) 7.0 % Normal 0-10 [facility] Comment on above: Performed By: #### L 100.0500, L500.4050, L501.9520 #### [facility] [address] [place], [address] Neutrophils/100 WBC (Bld) 77.4 % High 47-70 [facility] Comment on above: Performed By: #### L 100.0500, L500.4050, L501.9520 #### [facility] [address] [place], [address] Nucleated RBC (Bld) [#/Vol] 0 10*3/uL Normal 0-5 [facility] Comment on above: Performed By: #### L 100.0500, L500.4050, L501.9520 #### [facility] [address] [place], [address] Platelet mean volume (Bld) [Entitic vol] 9.6 fL Normal 6.2-12.0 [facility] Comment on above: Performed By: #### L 100.0500, L500.4050, L501.9520 #### [facility] [address] [place], [address] Platelets (Bld) [#/Vol] 279 10*3/uL Normal 150-450 [facility] Comment on above: Performed By: #### L 100.0500, L500.4050, L501.9520 #### [facility] [address] [place], [address] RBC (Bld) [#/Vol] 4.66 10*6/uL Normal 4.6-6.2 [facility] Comment on above: Performed By: #### L 100.0500, L500.4050, L501.9520 #### [facility] [address] [place], [address] RDW SD 49.6 fl High 35.1-43.9 [facility] Comment on above: Performed By: #### L 100.0500, L500.4050, L501.9520 #### [facility] [address] [place], [address] WBC (Bld) [#/Vol] 15.2 10*3/uL High 4.4-11.0 [facility] Comment on above: Performed By: #### L 100.0500, L500.4050, L501.9520 #### [facility] [address] [place], [address] CBC-Complete Blood Cnt No Di ffon 11-15-2024 Erythrocyte distribution width (RBC) [Ratio] 14.5 % Normal 11.6-14.6 [facility] Comment on above: Order Comment: Order Date: 11/15/24Order Info: [id number] - CBC Performed By: #### L 100.0500, L500.4050, L501.9520 #### [facility] [address] [place], [address] Hematocrit (Bld) [Volume fraction] 40.2 % Normal 40-54 [facility] Comment on above: Order Comment: Order Date: 11/15/24Order Info: [id number] - CBC Performed By: #### L 100.0500, L500.4050, L501.9520 #### [facility] [address] [place], [address] Hemoglobin (Bld) [Mass/Vol] 13.1 g/dL Normal 13.0-16.5 [facility] Comment on above: Order Comment: Order Date: 11/15/24Order Info: [id number] - CBC Performed By: #### L 100.0500, L500.4050, L501.9520 #### [facility] [address] [place], [address] MCH (RBC) [Entitic mass] 30.5 pg Normal 27.0-32.0 [facility] Comment on above: Order Comment: Order Date: 11/15/24Order Info: [id number] - CBC Performed By: #### L 100.0500, L500.4050, L501.9520 #### [facility] [address] [place], [address] MCHC (RBC) [Mass/Vol] 32.6 g/dL Normal 32-36 [facility] Comment on above: Order Comment: Order Date: 11/15/24Order Info: [id number] - CBC Performed By: #### L 100.0500, L500.4050, L501.9520 #### [facility] [address] [place], [address] MCV (RBC) [Entitic vol] 93.5 fL Normal 80-94 [facility] Comment on above: Order Comment: Order Date: 11/15/24Order Info: [id number] - CBC Performed By: #### L 100.0500, L500.4050, L501.9520 #### [facility] [address] [place], [address] Platelet mean volume (Bld) [Entitic vol] 9.9 fL Normal 6.2-12.0 [facility] Comment on above: Order Comment: Order Date: 11/15/24Order Info: [id number] - CBC Performed By: #### L 100.0500, L500.4050, L501.9520 #### [facility] [address] [place], [address] Platelets (Bld) [#/Vol] 271 10*3/uL Normal 150-450 [facility] Comment on above: Order Comment: Order Date: 11/15/24Order Info: [id number] - CBC Performed By: #### L 100.0500, L500.4050, L501.9520 #### [facility] [address] [place], [address] RBC (Bld) [#/Vol] 4.30 10*6/uL Low 4.6-6.2 [facility] Comment on above: Order Comment: Order Date: 11/15/24Order Info: [id number] - CBC Performed By: #### L 100.0500, L500.4050, L501.9520 #### [facility] [address] [place], [address] RDW SD 50.1 fl High 35.1-43.9 [facility] Comment on above: Order Comment: Order Date: 11/15/24Order Info: [id number] - CBC Performed By: #### L 100.0500, L500.4050, L501.9520 #### [facility] [address] [place], [address] WBC (Bld) [#/Vol] 10.3 10*3/uL Normal 4.4-11.0 [facility] Comment on above: Order Comment: Order Date: 11/15/24Order Info: [id number] - CBC Performed By: #### L 100.0500, L500.4050, L501.9520 #### [facility] [address] [place], [address] Carbon dioxide, total [Moles /volume] in Central venous bloodOrdered By: Finn Ferrell on 11-15-2024 CO2 [Moles/Vol] 21.7 mmol/L 21.0-32.0 [facility] Carbon dioxide, total [Moles /volume] in Central venous bloodOrdered By: Cooper Francis on 11-15-2024 CO2 [Moles/Vol] 20.3 mmol/L Low 21.0-32.0 [facility] Chloride assayOrdered By: Tanika Ferrell on 11-15-2024 Chloride [Moles/Vol] 101 mmol/L 98-108 [facility] Chloride assayOrdered By: Jaquan Francis on 11-15-2024 Chloride [Moles/Vol] 102 mmol/L 98-108 [facility] Comprehensive Metabolic Prof ilon 11-15-2024 Albumin [Mass/Vol] 4.2 g/dL Normal 3.4-4.8 [facility] Comment on above: Order Comment: Order Date: 11/15/24Order Info: [id number] - CMP Performed By: #### L 100.0500, L500.4050, L501.9520 #### [facility] [address] [place], [address] Albumin/Globulin [Mass ratio] 1.3 {ratio} Normal 0.9-2.4 [facility] Comment on above: Order Comment: Order Date: 11/15/24Order Info: [id number] - CMP Performed By: #### L 100.0500, L500.4050, L501.9520 #### [facility] [address] [place], [address] ALK PHOS 102 U/L Normal 40-129 [facility] Comment on above: Order Comment: Order Date: 11/15/24Order Info: [id number] - CMP Performed By: #### L 100.0500, L500.4050, L501.9520 #### [facility] [address] [place], [address] ALT [Catalytic activity/Vol] 36 U/L Normal <=46 [facility] Comment on above: Order Comment: Order Date: 11/15/24Order Info: 0786-1 - CMP Performed By: #### L 100.0500, L500.4050, L501.9520 #### [facility] [address] [place], [address] AST [Catalytic activity/Vol] 23 U/L Normal <=37 [facility] Comment on above: Order Comment: Order Date: 11/15/24Order Info: 0786-1 - CMP Performed By: #### L 100.0500, L500.4050, L501.9520 #### [facility] [address] [place], [address] Bilirubin [Mass/Vol] 1.28 mg/dL Normal 0.00-1.30 [facility] Comment on above: Order Comment: Order Date: 11/15/24Order Info: 0786-1 - CMP Performed By: #### L 100.0500, L500.4050, L501.9520 #### [facility] [address] [place], [address] BUN/CRE 15.5 RATIO Normal 10-20 [facility] Comment on above: Order Comment: Order Date: 11/15/24Order Info: 0786-1 - CMP Performed By: #### L 100.0500, L500.4050, L501.9520 #### [facility] [address] [place], [address] Calcium [Mass/Vol] 9.7 mg/dL Normal 7.6-11.0 [facility] Comment on above: Order Comment: Order Date: 11/15/24Order Info: 0786-1 - CMP Performed By: #### L 100.0500, L500.4050, L501.9520 #### [facility] [address] [place], [address] Chloride [Moles/Vol] 101 mmol/L Normal 98-108 [facility] Comment on above: Order Comment: Order Date: 11/15/24Order Info: 0786-1 - CMP Performed By: #### L 100.0500, L500.4050, L501.9520 #### [facility] [address] [place], [address] CO2 [Moles/Vol] 21.7 mmol/L Normal 21.0-32.0 [facility] Comment on above: Order Comment: Order Date: 11/15/24Order Info: 0786-1 - CMP Performed By: #### L 100.0500, L500.4050, L501.9520 #### [facility] [address] [place], [address] Creatinine [Mass/Vol] 2.13 mg/dL High 0.70-1.20 [facility] Comment on above: Order Comment: Order Date: 11/15/24Order Info: 0786-1 - CMP Performed By: #### L 100.0500, L500.4050, L501.9520 #### [facility] [address] [place], [address] GAP 13 Normal 5-15 [facility] Comment on above: Order Comment: Order Date: 11/15/24Order Info: 0786-1 - CMP Performed By: #### L 100.0500, L500.4050, L501.9520 #### [facility] [address] [place], [address] GFR/1.73 sq M.predicted among non-blacks MDRD (S/P/Bld) [Vol rate/Area] 33 mL/min/{1.73_m2} Low >60 [facility] Comment on above: Order Comment: Order Date: 11/15/24Order Info: 0786-1 - CMP Result Comment: mL/m in/1.73m2 CKD-EPI Creatinine Equation (2020) Performed By: #### L 100.0500, L500.4050, L501.9520 #### [facility] [address] [place], [address] Globulin (S) [Mass/Vol] 3.2 g/dL Normal 2.2-4.2 [facility] Comment on above: Order Comment: Order Date: 11/15/24Order Info: 0786-1 - CMP Performed By: #### L 100.0500, L500.4050, L501.9520 #### [facility] [address] [place], [address] Glucose [Mass/Vol] 92 mg/dL Normal 70-99 [facility] Comment on above: Order Comment: Order Date: 11/15/24Order Info: 0786-1 - CMP Performed By: #### L 100.0500, L500.4050, L501.9520 #### [facility] [address] [place], [address] Potassium [Moles/Vol] 4.6 mmol/L Normal 3.3-5.1 [facility] Comment on above: Order Comment: Order Date: 11/15/24Order Info: 0786-1 - CMP Performed By: #### L 100.0500, L500.4050, L501.9520 #### [facility] [address] [place], [address] Sodium [Moles/Vol] 136 mmol/L Normal 133-145 [facility] Comment on above: Order Comment: Order Date: 11/15/24Order Info: 0786-1 - CMP Performed By: #### L 100.0500, L500.4050, L501.9520 #### [facility] [address] [place], [address] T PROT 7.4 g/dL Normal 5.9-8.4 [facility] Comment on above: Order Comment: Order Date: 11/15/24Order Info: 0786-1 - CMP Performed By: #### L 100.0500, L500.4050, L501.9520 #### [facility] [address] [place], [address] Urea nitrogen [Mass/Vol] 33 mg/dL High 4-19 [facility] Comment on above: Order Comment: Order Date: 11/15/24Order Info: 0786-1 - CMP Performed By: #### L 100.0500, L500.4050, L501.9520 #### [facility] [address] [facility] [place], [place], [address] Eosinophil percentageOrdered By: Cooper Francis on 11-15-2024 Eosinophils/100 WBC (Bld) 0.6 % 0-5 [facility] Erythrocyte distribution wid th ratioOrdered By: Finn Ferrell on 11-15-2024 Erythrocyte distribution width (RBC) [Ratio] 14.5 % 11.6-14.6 [facility] Erythrocyte distribution wid th ratioOrdered By: Cooper Francis on 11-15-2024 Erythrocyte distribution width (RBC) [Ratio] 14.9 % High 11.6-14.6 [facility] Erythrocyte distribution wid th standard deviationOrdered By: Finn Ferrell on 11-15-2024 Erythrocyte distribution width (RBC) [Ratio] 50.1 fl High 35.1-43.9 [facility] Erythrocyte distribution wid th standard deviationOrdered By: Cooper Francis on 11-15-2024 Erythrocyte distribution width (RBC) [Ratio] 49.6 fl High 35.1-43.9 [facility] Foot min 3 Viewson Foot min 3 Views [facility] [address] [place], [place] [address] Foot min 3 Views MR#: [id number] Acct: [id number] Name: SHANNON OLSON Rep #: [id number] : 1955 M 69 From: Brie romano MD PCP: Dr. Finn Ferrell MD Status: REG ER Study: Foot min 3 Views Date of Exam: 11/15/24 Exam# [id number] Ordering Dr: Cooper Francis DO PROCEDURE: FOOT [...] x-ray examination of the foot. Reading [facility] CC: Dr. Cooper Francis DO; Dr. Finn Ferrell MD [employer]: Signed Normal [facility] Glomerular filtration rate ( GFR) estimation/1.73 sq m using serum, plasma, or whole bOrdered By: Finn Ferrell on 11-15-2024 GFR/1.73 sq M.predicted among non-blacks MDRD (S/P/Bld) [Vol rate/Area] 33 mL/min/{1.73_m2} Low >60 [facility] Comment on above: mL/min/1.73m2 CKD-EP I Creatinine Equation (2020) Glomerular filtration rate ( GFR) estimation/1.73 sq m using serum, plasma, or whole bOrdered By: Cooper Francis on 11-15-2024 GFR/1.73 sq M.predicted among non-blacks MDRD (S/P/Bld) [Vol rate/Area] 29 mL/min/{1.73_m2} Low >60 [facility] Comment on above: mL/min/1.73m2 CKD-EP I Creatinine Equation (2020) Hematocrit Auto (Bld) [Volum e fraction]Ordered By: Finn Ferrell on 11-15-2024 Hematocrit (Bld) [Volume fraction] 40.2 % [facility] Hematocrit Auto (Bld) [Volum e fraction]Ordered By: Cooper Francis on 11-15-2024 Hematocrit (Bld) [Volume fraction] 43.4 % [facility] Hemoglobin measurementOrdere d By: Finn Ferrell on 11-15-2024 Hemoglobin (Bld) [Mass/Vol] 13.1 g/dL 13.0-16.5 [facility] Hemoglobin measurementOrdere d By: Cooper Francis on 06-25-2025 Hemoglobin (Bld) [Mass/Vol] 14.3 g/dL 13.0-16.5 [facility] Immature granulocytes/100 WB C Auto (Bld)Ordered By: Cooper Francis on 11-15-2024 Immature granulocytes/100 WBC (Bld) 0.700 % 0.0-0.9 [facility] Comment on above: IG% - Immature Granu locytes (promyelocytes, myelocytes and metamyelocytes) > 1% indicates that a LEFT SHIFT is Present. Laboratory - Chemistry and C hemistry - challengeOrdered By: Finn Ferrell on 11-15-2024 AST [Catalytic activity/Vol] 23 U/L <38 [facility] MCV (mean corpuscular volume ) determinationOrdered By: Finn Ferrell on 11-15-2024 MCV (RBC) [Entitic vol] 93.5 fL 80-94 [facility] MCV (mean corpuscular volume ) determinationOrdered By: Cooper Francis on 11-15-2024 MCV (RBC) [Entitic vol] 93.1 fL 80-94 [facility] Mean corpuscular hemoglobin (MCH) determinationOrdered By: Finn Ferrell on 11-15-2024 MCH (RBC) [Entitic mass] 30.5 pg 27.0-32.0 [facility] Mean corpuscular hemoglobin (MCH) determinationOrdered By: Cooper Francis on 11-15-2024 MCH (RBC) [Entitic mass] 30.7 pg 27.0-32.0 [facility] Mean corpuscular hemoglobin concentration (MCHC) determinationOrdered By: Finn Ferrell on 11-15-2024 MCHC (RBC) [Mass/Vol] 32.6 g/dL -36 [facility] Mean corpuscular hemoglobin concentration (MCHC) determinationOrdered By: Cooper Francis on 11-15-2024 MCHC (RBC) [Mass/Vol] 32.9 g/dL -36 [facility] Mean platelet volume determi nationOrdered By: Finn Ferrell on 11-15-2024 Platelet mean volume (Bld) [Entitic vol] 9.9 fL 6.2-12.0 [facility] Mean platelet volume determi nationOrdered By: Cooper Francis on 11-15-2024 Platelet mean volume (Bld) [Entitic vol] 9.6 fL 6.2-12.0 [facility] Monocyte percentageOrdered B y: Cooper Francis on 11-15-2024 Monocytes/100 WBC (Bld) 7.0 % 0-10 [facility] Neutrophil percentageOrdered By: Cooper Francis on 11-15-2024 Neutrophils/100 WBC (Bld) 77.4 % High 47-70 [facility] Nucleated red blood cell per centageOrdered By: Cooper Francis on 11-15-2024 Nucleated RBC/100 WBC (Bld) [Ratio] 0 % 0-5 [facility] Platelet countOrdered By: Tanika Ferrell on 11-15-2024 Platelets (Bld) [#/Vol] 271 10*3/uL 150-450 [facility] Platelet countOrdered By: Jaquan Francis on 11-15-2024 Platelets (Bld) [#/Vol] 279 10*3/uL 150-450 [facility] Potassium measurement (mass/ volume)Ordered By: Finn Ferrell on 11-15-2024 Potassium (Unsp spec) [Mass/Vol] 4.6 mmol/L 3.3-5.1 [facility] Potassium measurement (mass/ volume)Ordered By: Cooper Francis on 11-15-2024 Potassium (Unsp spec) [Mass/Vol] 5.4 mmol/L High 3.3-5.1 [facility] Comment on above: Hemolysis present, R esults could be affected. RBC Auto (Bld) [#/Vol]Ordere d By: Finn Ferrell on 11-15-2024 RBC (Bld) [#/Vol] 4.30 10*6/uL Low 4.6-6.2 [facility] RBC Auto (Bld) [#/Vol]Ordere d By: Cooper Francis on 11-15-2024 RBC (Bld) [#/Vol] 4.66 10*6/uL 4.6-6.2 [facility] Serum creatinine measurement (mass/volume)Ordered By: Finn Ferrell on 11-15-2024 Creatinine [Mass/Vol] 2.13 mg/dL High 0.70-1.20 [facility] Serum creatinine measurement (mass/volume)Ordered By: Cooper Francis on 11-15-2024 Creatinine [Mass/Vol] 2.38 mg/dL High 0.70-1.20 [facility] Serum globulin measurementOr dered By: Finn Ferrell on 11-15-2024 Globulin (S) [Mass/Vol] 3.2 g/dL 2.2-4.2 [facility] Serum glucose measurement (m ass/volume)Ordered By: Finn Ferrell on 11-15-2024 Glucose [Mass/Vol] 92 mg/dL 70- [facility] Serum glucose measurement (m ass/volume)Ordered By: Cooper Francis on 11-15-2024 Glucose [Mass/Vol] 122 mg/dL High - [facility] Serum or plasma alanine newman otransferase (ALT) measurementOrdered By: Finn Ferrell on 11-15-2024 ALT [Catalytic activity/Vol] 36 U/L <47 [facility] Serum or plasma albumin renu urement (mass/volume)Ordered By: Finn Ferrell on 11-15-2024 Albumin [Mass/Vol] 4.2 g/dL 3.4-4.8 [facility] Serum or plasma albumin/glob ulin mass ratioOrdered By: Finn Ferrell on 11-15-2024 Albumin/Globulin [Mass ratio] 1.3 {ratio} 0.9-2.4 [facility] Serum or plasma alkaline christal sphatase measurementOrdered By: Finn Ferrell on 11-15-2024 ALP [Catalytic activity/Vol] 102 U/L 40-129 [facility] Serum or plasma calcium renu urement (mass/volume)Ordered By: Finn Ferrell on 11-15-2024 Calcium [Mass/Vol] 9.7 mg/dL 7.6-11.0 [facility] Serum or plasma calcium renu urement (mass/volume)Ordered By: Cooper Francis on 11-15-2024 Calcium [Mass/Vol] 10.1 mg/dL 7.6-11.0 [facility] Serum or plasma urea nitroge n measurement (mass/volume)Ordered By: Finn Ferrell on 11-15-2024 Urea nitrogen [Mass/Vol] 33 mg/dL High 09-09 [facility] Serum or plasma urea nitroge n measurement (mass/volume)Ordered By: Cooper Francis on 11-15-2024 Urea nitrogen [Mass/Vol] 33 mg/dL High 09-09 [facility] Serum or plasma uric acid me asurement (mass/volume)Ordered By: Cooper Francis on 11-15-2024 Urate [Mass/Vol] 9.4 mg/dL High 3.5-7.2 [facility] Comment on above: The drugs N-Acetylcy steine and Metamizole may falsely depress this assay. Sodium levelOrdered By: Finn Ferrell on 11-15-2024 Sodium [Moles/Vol] 136 mmol/L 133-145 [facility] Sodium levelOrdered By: Cooper Francis on 11-15-2024 Sodium [Moles/Vol] 138 mmol/L 133-145 [facility] Total proteinOrdered By: Benedicto Ferrell on 11-15-2024 Protein [Mass/Vol] 7.4 g/dL 5.9-8.4 [facility] Uric Acidon 11-15-2024 URIC 9.4 mg/dL High 3.5-7.2 [facility] Comment on above: Result Comment: The drugs N-Acetylcysteine and Metamizole may falsely depress this assay. Performed By: #### L 100.0500, L500.4050, L501.9520 #### [facility] [address] [place], [address] White blood cell (WBC) count Ordered By: Finn Ferrell on 11-15-2024 WBC (Bld) [#/Vol] 10.3 10*3/uL 4.4-11.0 [facility] White blood cell (WBC) count Ordered By: Cooper Francis on 11-15-2024 WBC (Bld) [#/Vol] 15.2 10*3/uL High 4.4-11.0 [facility] Emergency Department Summary on 11-14-2024 Emergency Department Summary [facility] Medical Records Department [address] [place] [address] Emergency Department Summary 11/14/24 MR#: [id number] Acct: [id number] Name: SHANNON OLSON Rep #: [id number] : 1955 69 From: Cooper Francis DO [...] for Parasthesia, Weakness or Loss of Funtion PFSH [facility] Medical History Left rotator cuff tear [...] (hypertension) Hyperlipidemia Esophageal reflux Coronary atherosclerosis of [place] coronary vessel Home Medications ???Medication ???Instructions ???Recorded [...] ED: Denies rhinorrhea (more content not included)... [facility] 10-19-2024 36 Great news, Tried to return phone call but no voice mail. Continue with same plan. [facility] 36 Pt called sarah landa to know he feels Awesome! Med changes are great, no chest pain, doing yard work, walking more. [facility] 10-09-2024 29 Addended by: DANISHA SPAIN on: 10/10/2024 01:52 PM Modules accepted: Orders [facility] Progress Noteon 10-09-2024 Progress Note [...] to re-admit to SNF/HHC if needed. N/A [facility] Progress Note Patient is scheduled with Dr. Escobedo on 02/07/2025, He lives in [place], please try and get his repeat ECHO for LV function, scheduled the same day. See order, I tried to call him to discuss, but he did not answer, no Voice mail. [facility] 09-28-2024 36 Pt asking when he ne eds another Echo. Please call patient [facility] [phone] Reduce norvasc to 5 mg once a day , reduce Ranexa to 500 mg twice a day Add Zetia 10 mg daily Call me in 2-3 weeks [phone] Normal [facility] Office Visiton 09-28-2024 Follow-up visit [id number] Shannon Olson 1955 M Date Provider Department Center 09/28/2024 [id number] FRANCE J [facility] A[facility] HARIKA [facility] 95 Ar Family History Problem Relation Age of Onset Diabetes Paternal Grandmother Diabetes Maternal Grandfather Cancer Sister Hypertension Mother Diabetes Sister Diabetes Paternal Grandfather Heart disease Paternal Grandmother Heart disease Paternal Grandfather Cancer Father Diabetes Brother Family Status - Relation Status Age at Paternal Grandmother Maternal Grandfather Sister Mother Alive Paternal Grandfather Father Brother Level of Service:00046 OR OFFICE/OUTPATIENT ESTABLISHED MOD MDM 30 MIN Reason for Visit and Comments: Coronary Artery Disease [187] Normal [facility] Progress Noteon 09-28-2024 Progress Note [facility] [address] [facility] [address] Dept: [phone] Dept Visit Type: Established NAME: Shannon Olson [...] Past Medical History: Diagnosis Date Angina pectoris ([facility]) Anxiety Arrhythmia A-fib Asthma CAD (coronary artery disease) Cerebral artery occlusion with cerebral infarction ([facility]) COPD (chronic obstructive pulmonary disease) ([facility]) Depression WATTS (dyspnea on exertion) Fatigue GERD (gastroesophageal reflux disease) History of cardioversion 05/07/2016 Successful conversion of a-fib to SR History of left heart catheterization 05/07/2016 60% stenosis right posterior descending, patent stents in prox, mid & distal RCA, patent stents in med LCx. Findings unchanged from previous study. 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) 12/2012 NSTEMI (non-ST elevated myocardial infarction) ([facility]) 05/2014 Obesity Old MD (myocardial infarction) HIPOLITO (obstructive sleep apnea) HIPOLITO on CPAP PAF (paroxysmal atrial fibrillation) ([facility]) Rheumatoid arthritis(714.0) ([facility]) ST segment elevation myocardial infarction (STEMI) of anterolateral wall, subsequent episode of care ([facility]) TIA (transient ischemic attack) Social History Tobacco Use Smoking status: Never Smokeless tobacco: Never Substance Use Topics Alcohol use: Not Currently Past Surgical History: Procedure Laterality Date CAPSULOTOMY, HAND 05/07/2016 CARDIAC CATHETERIZATION N/A 03/01/2023 Performed by Zoie Gonzales MD at [facility] Cardiac Cath/EP Lab CARDIAC CATHETERIZATION Left 09/14/2024 Performed by Dominguez Ortega MD at [facility] Cardiac Cath/EP Lab CARDIAC CATHETERIZATION N/A 09/14/2024 Performed by Dominguez Ortega MD at [facility] Cardiac Cath/EP Lab CARDIAC CATHETERIZATION N/A 09/14/2024 Performed by Dominguez Ortega MD at [facility] Cardiac Cath/EP Lab CARDIAC CATHETERIZATION N/A 09/14/2024 Performed by Dominguez Ortega MD at [facility] Cardiac Cath/EP Lab CARDIAC PROCEDURE [...] WITH GERARDO (more content not included)... Normal [facility] 30on 09-15-2024 30 Problem: Pain - Adul t Goal: Verbalizes/displays adequate comfort level or baseline comfort level Outcome: Progressing Problem: Safety - Adult Goal: Free from fall injury Outcome: Progressing Problem: Discharge Planning Goal: Discharge to home or other facility with appropriate resources Outcome: Progressing Normal [facility] CBC (HEMOGRAM)on 09-15-2024 Erythrocyte distribution width (RBC) [Ratio] 14.7 % Normal 11.5-15.0 [facility] Comment on above: Performed By: #### L AB18, LAB17 #### Skein Straightener: DUTCH ABBOTT ([id number]) [facility] ([facility]) [address] [place] [address] Hematocrit (Bld) [Volume fraction] 36.3 % Low 40.0-52.0 [facility] Comment on above: Performed By: #### L AB18, LAB17 #### Skein Straightener: DUTCH ABBOTT ([id number]) [facility] ([facility]) [address] [place] [address] Hemoglobin (Bld) [Mass/Vol] 11.7 g/dL Low 13.0-18.0 [facility] Comment on above: Performed By: #### L AB18, LAB17 #### Skein Straightener: DUTCH ABBOTT ([id number]) [facility]) [address] [place] [address] MCH (RBC) [Entitic mass] 29.6 pg Normal 26.0-34.0 [facility] Comment on above: Performed By: #### L AB18, LAB17 #### Skein Straightener: DUTCH ABBOTT ([id number]) [facility] ([facility]) [address] [place] [address] MCHC 32.2 % Normal 30.5-36.0 [facility] Comment on above: Performed By: #### L AB18, LAB17 #### Skein Straightener: DUTCH ABBOTT ([id number]) [facility]) [address] [place] [address] MCV (RBC) [Entitic vol] 91.9 fL Normal 77.0-99.0 [facility] Comment on above: Performed By: #### L AB18, LAB17 #### Skein Straightener: DUTCH ABBOTT ([id number]) [facility]) [address] [place] [address] Platelet mean volume (Bld) [Entitic vol] 9.8 fL Normal 9.0-12.7 [facility] Comment on above: Performed By: #### L AB18, LAB17 #### Skein Straightener: DUTCH ABBOTT ([id number]) [facility] [address] [place] [address] Platelets (Bld) [#/Vol] 194 10*3/uL Normal 140-440 [facility] Comment on above: Performed By: #### L AB18, LAB17 #### Skein Straightener: DUTCH ABBOTT ([id number]) [facility]) [address] [place] [address] RBC (Bld) [#/Vol] 3.95 10*6/uL Low 4.40-5.90 [facility] Comment on above: Performed By: #### L AB18, LAB17 #### Skein Straightener: DUTCH ABBOTT ([id number]) [facility]) [address] [place] [address] WBC (Bld) [#/Vol] 9.2 10*3/uL Normal 3.6-10.7 [facility] Comment on above: Performed By: #### L AB18, LAB17 #### Skein Straightener: DUTCH ABBOTT ([id number]) [facility] ([facility]) [address] [place] [address] CBC panel Auto (Bld)on 09-15 Erythrocyte distribution width (RBC) [Ratio] 14.7 % 11.5 - 15.0 % [facility] Hematocrit (Bld) [Volume fraction] 36.3 % Low 40.0 - 52.0 % [facility] Hemoglobin (Bld) [Mass/Vol] 11.7 g/dL Low 13.0 - 18.0 g/dL [facility] Interpretation and review of laboratory results Abnormal [facility] MCH (RBC) [Entitic mass] 29.6 pg 26.0 - 34.0 pg [facility] MCHC (RBC) [Mass/Vol] 32.2 % 30.5 - 36.0 % [facility] MCV (RBC) [Entitic vol] 91.9 fL 77.0 - 99.0 fL [facility] Platelet mean volume (Bld) [Entitic vol] 9.8 fL 9.0 - 12.7 fL [facility] Platelets (Bld) [#/Vol] 194 10*3/uL 140 - 440 10*3/uL [facility] RBC (Bld) [#/Vol] 3.95 10*6/uL Low 4.40 - 5.90 10*6/uL [facility] WBC (Bld) [#/Vol] 9.2 10*3/uL 3.6 - 10.7 10*3/uL [facility] COMPREHENSIVE METABOLIC PANE Kamar 09-15-2024 Albumin [Mass/Vol] 3.3 g/dL Low 3.4-4.8 [facility] Comment on above: Performed By: #### L AB18, LAB17 #### Skein Straightener: DUTCH ABBOTT ([id number]) [facility] ([facility]) [address] [place] [address] ALP [Catalytic activity/Vol] 75 U/L Normal 40-150 [facility] Comment on above: Performed By: #### L AB18, LAB17 #### Skein Straightener: DUTCH ABBOTT ([id number]) [facility] ([facility]) [address] [place] [address] ALT [Catalytic activity/Vol] 17 U/L Normal <40 [facility] Comment on above: Performed By: #### L AB18, LAB17 #### Skein Straightener: DUTCH ABBOTT ([id number]) [facility] ([facility]) [address] [place] [address] Anion gap [Moles/Vol] 7 mmol/L Normal 3-13 [facility] Comment on above: Performed By: #### L AB18, LAB17 #### Skein Straightener: DUTCH ABBOTT ([id number]) [facility] ([facility]) [address] [place] [address] AST [Catalytic activity/Vol] 20 U/L Normal <34 [facility] Comment on above: Performed By: #### L AB18, LAB17 #### Skein Straightener: DUTCH ABBOTT ([id number]) [facility] ([facility]) [address] [place] [address] Bilirubin [Mass/Vol] 1.5 mg/dL High <1.2 [facility] Comment on above: Performed By: #### L AB18, LAB17 #### Skein Straightener: DUTCH ABBOTT ([phone]) [facility] [address] [place] [address] [place] Calcium [Mass/Vol] 8.3 mg/dL Low 8.8-10.0 [facility] Comment on above: Performed By: #### L AB18, LAB17 #### Skein Straightener: DUTCH ABBOTT ([phone]) [facility] [address] [place] [address] [place] Chloride [Moles/Vol] 111 mmol/L High 98-107 [facility] Comment on above: Performed By: #### L AB18, LAB17 #### Skein Straightener: DUTCH ABBOTT ([phone]) [facility] [address] [place] [address] CO2 [Moles/Vol] 21 mmol/L Low 23-31 [facility] Comment on above: Performed By: #### L AB18, LAB17 #### Skein Straightener: DUTCH ABBOTT ([phone]) [facility] [address] [place] [address] [place] Creatinine [Mass/Vol] 1.26 mg/dL High 0.72-1.25 [facility] Comment on above: Performed By: #### L AB18, LAB17 #### Skein Straightener: DUTCH ABBOTT ([phone]) [facility] [address] [place] [address] [place] GLOMERULAR FILTRATION RATE ML/MIN/1.73 SQ M.PREDICTED 62.1 mL/min/1.73m*2 Normal >60.0 [facility] Comment on above: Result Comment: Calc ulation based on the Chronic Kidney Disease Epidemiology Collaboration (CKD-EPI) equation refit without adjustment for race Performed By: #### L AB18, LAB17 #### Skein Straightener: DUTCH ABBOTT ([phone]) [facility] [address] [place] [address] [place] Glucose [Mass/Vol] 116 mg/dL High 82-115 [facility] Comment on above: Performed By: #### L AB18, LAB17 #### Skein Straightener: DUTCH ABBOTT ([phone]) [facility] [address] [place] [address] Potassium [Moles/Vol] 4.0 mmol/L Normal 3.5-5.1 [facility] Comment on above: Result Comment: [facility] potassium values may be up to 0.5 mmol/L lower than serum values. Performed By: #### L AB18, LAB17 #### Skein Straightener: DUTCH ABBOTT ([phone]) [facility] ([facility]) [address] [place] [address] Protein [Mass/Vol] 6.1 g/dL Low 6.4-8.3 [facility] Comment on above: Performed By: #### L AB18, LAB17 #### Skein Straightener: DUTCH ABBOTT ([phone]) [facility] ([facility]) [address] [place] [address] Sodium [Moles/Vol] 139 mmol/L Normal 136-145 [facility] Comment on above: Performed By: #### L AB18, LAB17 #### Skein Straightener: DUTCH ABBOTT ([phone]) [facility] ([facility]) [address] [place] [address] Urea nitrogen [Mass/Vol] 21 mg/dL Normal 9-23 [facility] Comment on above: Performed By: #### L AB18, LAB17 #### Skein Straightener: DUTCH ABBOTT ([phone]) [facility] ([facility]) [address] [place] [address] Comprehensive metabolic 1998 panelon 09-15-2024 Albumin [Mass/Vol] 3.3 g/dL Low 3.4 - 4.8 g/dL [facility] ALP [Catalytic activity/Vol] 75 U/L 40 - 150 U/L [facility] ALT [Catalytic activity/Vol] 17 U/L NINF - 40 U/L [facility] Anion gap [Moles/Vol] 7 mmol/L 3 - 13 mmol/L [facility] AST [Catalytic activity/Vol] 20 U/L NINF - 34 U/L [facility] Bilirubin [Mass/Vol] 1.5 mg/dL High NINF - 1.2 mg/dL [facility] Calcium [Mass/Vol] 8.3 mg/dL Low 8.8 - 10. 0 mg/dL [facility] Chloride [Moles/Vol] 111 mmol/L High 98 - 10 7 mmol/L [facility] CO2 [Moles/Vol] 21 mmol/L Low 23 - 31 mmol/L [facility] Creatinine [Mass/Vol] 1.26 mg/dL High 0.72 - 1.25 mg/dL [facility] GFR/1.73 sq M.predicted (S/P/Bld) [Vol rate/Area] 62.1 mL/min - PINF [facility] Comment on above: Calculation based on the Chronic Kidney Disease Epidemiology Collaboration (CKD-EPI) equation refit without adjustment for race Glucose [Mass/Vol] 116 mg/dL High 82 - 115 mg/dL [facility] Potassium [Moles/Vol] 4 mmol/L 3.5 - 5.1 mmol/L [facility] Comment on above: Plasma potassium reed ues may be up to 0.5 mmol/L lower than serum values. Protein [Mass/Vol] 6.1 g/dL Low 6.4 - 8.3 g/dL [facility] Sodium [Moles/Vol] 139 mmol/L 136 - 145 mmol/L [facility] Urea nitrogen [Mass/Vol] 21 mg/dL 9 - 23 mg/dL [facility] ECG 12-LEADon 09-15-2024 ECG 12-LEAD IMPRESSION: Sinus bradycardia Left bundle branch block Electronically Signed On 09-15-2024 19:22:18 EDT by Alvaro Elliott Normal [facility] ECG 12-LEAD IMPRESSION: Sinus bradycardia Left bundle branch block Electronically Signed On 09-15-2024 19:13:56 EDT by Alvaro Elliott Normal [facility] LIPID PANELon 09-15-2024 Cholesterol [Mass/Vol] 161 mg/dL Normal <200 [facility] Comment on above: Performed By: #### L AB18, LAB17 #### Skein Straightener: DUTCH ABBOTT ([phone]) [facility] ([facility]) [address] [place] [address] Cholesterol in HDL [Mass/Vol] 39 mg/dL Low >=60 [facility] Comment on above: Performed By: #### L AB18, LAB17 #### Skein Straightener: DUTCH ABBOTT ([phone]) [facility]) [address] [place] [address] Cholesterol.total/Chol esterol in HDL [Mass ratio] 4 {ratio} Normal [facility] Comment on above: Result Comment: Ref Range: < 3 Low Risk for CHD 3-6 Mod Risk for CHD > 6 High Risk for CHD Performed By: #### L AB18, LAB17 #### Skein Straightener: DUTCH ABBOTT ([id number]) [facility] ([facility]) [address] [place] [address] LOW DENSITY LIPOPROTEIN 82 mg/dL Normal 0-<100 [facility] Comment on above: Performed By: #### L AB18, LAB17 #### Skein Straightener: DUTCH ABBOTT ([phone]) [facility]) [address] [place] [address] NON-HDL CHOLESTEROL, CALCULATED 122 Normal <130 [facility] Comment on above: Performed By: #### L AB18, LAB17 #### Skein Straightener: DUTCH ABBOTT ([phone]) [facility]) [address] [place] [address] Triglyceride [Mass/Vol] 202 mg/dL High <150 [facility] Comment on above: Performed By: #### L AB18, LAB17 #### Skein Straightener: DUTCH ABBOTT ([id number]) [facility]) [address] [place] [address] VERY LOW DENSITY LIPOPROTEIN, CALCULATED 40 mg/dL High <=30 [facility] Comment on above: Performed By: #### L AB18, LAB17 #### Skein Straightener: DUTCH ABBOTT ([phone]) [facility]) [address] [place] [address] Lipid 1996 panelon 5 Cholesterol [Mass/Vol] 161 mg/dL NINF - 200 mg/dL [facility] Cholesterol in HDL [Mass/Vol] 39 mg/dL Low 60 - PINF mg/dL [facility] Cholesterol in LDL [Mass/Vol] 82 mg/dL 0 - <100 [facility] Cholesterol.total/Chol esterol in HDL [Mass ratio] 4 {ratio} [facility] Comment on above: Ref Range: < 3 Low Risk for CHD 3-6 Mod Risk for CHD > 6 High Risk for CHD NON-HDL CHOLESTEROL, CALCULATED 122 NINF - 130 [employer] Triglyceride [Mass/Vol] 202 mg/dL High NINF - 150 mg/dL [facility] VERY LOW DENSITY LIPOPROTEIN, CALCULATED 40 mg/dL High NINF - 30 mg/dL [facility] No Panel InformationOrdered By: Alvaro Elliott on 09-15-2024 P [place] 35 degrees [employer] Work Phone: OR Interval 203 ms [employer] Work Phone: QRS [place] 6 degrees [employer] Work Phone: QRSD Interval 160 ms [employer] Work Phone: QT Interval 505 ms [employer] Work Phone: QTC Interval 457 ms [employer] Work Phone: T Wave [place] 187 degrees [employer] Work Phone: [employer] Work Phone: No Panel Informationon 09-15 Sinus bradycardia Left bundle branch block Electronically Signed On 09-15-2024 19:22:18 EDT by Alvaro Elliott Alvaro Hawkins MD - 09/15/2024 IMPRESSION: Sinus bradycardia Left bundle branch block Electronically Signed On 09-15-2024 19:22:18 EDT by Alvaro Elliott [employer] P [place] 14 degrees [employer] OR Interval 202 ms [employer] QRS [place] -5 degrees [employer] QRSD Interval 174 ms [employer] QT Interval 681 ms [employer] QTC Interval 636 ms [employer] T Wave [place] 166 degrees [employer] Sinus bradycardia Left bundle branch block Electronically Signed On 09-15-2024 19:13:56 EDT by Alvaro Elliott Alvaro Hawkins MD - 09/15/2024 IMPRESSION: Sinus bradycardia Left bundle branch block Electronically Signed On 09-15-2024 19:13:56 EDT by Alvaro Elliott [facility] Interpretation and review of laboratory results Abnormal [facility] Vital signsOrdered By: Monica Elliott on 09-15-2024 Heart rate 49 /min bpm [facility] [employer] Work Phone: Vital signson 09-15-2024 Heart rate 53 /min bpm [facility] 30on 09-14-2024 30 Problem: Pain - Adul t Goal: Verbalizes/displays adequate comfort level or baseline comfort level Outcome: Progressing Problem: Safety - Adult Goal: Free from fall injury Outcome: Progressing Problem: Discharge Planning Goal: Discharge to home or other facility with appropriate resources Outcome: Progressing Normal [facility] Anesthesia Noteon 09-14-2024 Anesthesia Note Sedation [...] proceed to administer sedation as planned. Normal [facility] No Panel Informationon 09-14 Interpretation and review of laboratory results Abnormal [facility] POCT ACT 166 [facility] POCT ACT 270 [facility] POCT ACT 248 [facility] Performed by: [facility], [address] [place] [address] CLIA ID: [id number] [facility] Nursing Noteon 09-14-2024 Nursing Note Report called to Sydney humphries RN 1 Central Normal [facility] Nursing Note APPLICATIONS PROGRAMMER updated on pt sta tus, no improvement in chest pressure and now with room spinning dizziness. Normal [facility] Nursing Note APPLICATIONS PROGRAMMER at pt bedside Normal [facility] Progress Noteon 09-14-2024 Progress Note S/P PCI Seen in Prep and Recovery for C/O chest burning discomfort and sensation of room spinning. Discomfort not angina and is tender to palpation. Likely due to PCI with IVL and PTCA. Vitals and EKG are stable, no distress. Will observe overnight. Fluids infusing. Fellow and Dr. Ortega updated. Orders placed for admission. [facility] 29on 09-12-2024 29 Addended by: MIRYAM BELLAMY on: 09/12/2024 03:26 PM Modules accepted: Orders Normal [facility] 36on 09-12-2024 36 Prep for proc completed. Normal [facility] 36 Labs scanned in under Media [facility] 36 I called and request ed labs. She is faxing them over. [facility] Absolute lymphocyte counton 09-11-2024 Lymphocytes Auto (Unsp spec) [#/Vol] 1.60 10*3/uL 0.83-4.51 [facility] Absolute neutrophil counton 09-11-2024 Neutrophils (Bld) [#/Vol] 5.9 10*3/uL 2.0-7.7 [facility] Anion gap in Serum or Plasma on 09-11-2024 Anion gap [Moles/Vol] 11 mmol/L 5-15 [facility] Automated lymphocyte count a s percentage of total leukocyteson 09-11-2024 Lymphocytes/100 WBC Auto (Unsp spec) 19.6 % 19- [facility] BUN/creatinine ratioon 09-11 Urea nitrogen/Creatinine [Mass ratio] 12.8 mg/mg 10-20 [facility] Basophil percentageon 2024 Basophils/100 WBC (Bld) 0.5 % 0-1 [facility] Bilirubin, totalon Bilirubin [Mass/Vol] 0.92 mg/dL 0.00-1.30 [facility] CBC W/Diff, Automatedon 08-23 Absolute Lymph 1.60 X10 3/uL Normal 0.83-4.51 [facility] Comment on above: Performed By: #### L 100.0500, L500.4050, L501.9520 #### [facility] [address] [place], [place], [id number] Absolute Neut 5.9 X10 3/uL Normal 2.0-7.7 [facility] Comment on above: Performed By: #### L 100.0500, L500.4050, L501.9520 #### [facility] [address] [place], [address] Basophils/100 WBC (Bld) 0.5 % Normal 0-1 [facility] Comment on above: Performed By: #### L 100.0500, L500.4050, [id number] #### [facility] [address] [place], [address] Eosinophils/100 WBC (Bld) 0.7 % Normal 0-5 [facility] Comment on above: Performed By: #### L 100.0500, L500.4050, [id number] #### [facility] [address] [place], [address] Erythrocyte distribution width (RBC) [Ratio] 14.4 % Normal 11.6-14.6 [facility] Comment on above: Performed By: #### L 100.0500, L500.4050, [id number] #### [facility] [address] [place], [address] Hematocrit (Bld) [Volume fraction] 42.1 % Normal 40-54 [facility] Comment on above: Performed By: #### L 100.0500, L500.4050, [id number] #### [facility] [address] [place], [address] Hemoglobin (Bld) [Mass/Vol] 14.0 g/dL Normal 13.0-16.5 [facility] Comment on above: Performed By: #### L 100.0500, L500.4050, [id number] #### [facility] [address] [place], [address] IG% 0.500 Normal 0.0-0.9 [facility] Comment on above: Result Comment: IG% - Immature Granulocytes (promyelocytes, myelocytes and metamyelocytes) > 1% indicates that a LEFT SHIFT is Present. Performed By: #### L 100.0500, L500.4050, L501.9520 #### [facility] [address] [place], [address] Lymphocytes/100 WBC (Bld) 19.6 % Normal 19-41 [facility] Comment on above: Performed By: #### L 100.0500, L500.4050, [id number] #### [facility] [address] [place], [address] MCH (RBC) [Entitic mass] 30.2 pg Normal 27.0-32.0 [facility] Comment on above: Performed By: #### L 100.0500, L500.4050, [id number] #### [facility] [address] [place], [address] MCHC (RBC) [Mass/Vol] 33.3 g/dL Normal 32-36 [facility] Comment on above: Performed By: #### L 100.0500, L500.4050, [id number] #### [facility] [address] [place], [address] MCV (RBC) [Entitic vol] 90.7 fL Normal 80-94 [facility] Comment on above: Performed By: #### L 100.0500, L500.4050, [id number] #### [facility] [address] [place], [address] Monocytes/100 WBC (Bld) 6.4 % Normal 0-10 [facility] Comment on above: Performed By: #### L 100.0500, L500.4050, [id number] #### [facility] [address] [place], [address] Neutrophils/100 WBC (Bld) 72.3 % High 47-70 [facility] Comment on above: Performed By: #### L 100.0500, L500.4050, [id number] #### [facility] [address] [place], [address] Nucleated RBC (Bld) [#/Vol] 0 10*3/uL Normal 0-5 [facility] Comment on above: Performed By: #### L 100.0500, L500.4050, [id number] #### [facility] [address] [place], [address] Platelet mean volume (Bld) [Entitic vol] 9.6 fL Normal 6.2-12.0 [facility] Comment on above: Performed By: #### L 100.0500, L500.4050, [id number] #### [facility] [address] [place], [address] Platelets (Bld) [#/Vol] 249 10*3/uL Normal 150-450 [facility] Comment on above: Performed By: #### L 100.0500, L500.4050, [id number] #### [facility] [address] [place], [address] RBC (Bld) [#/Vol] 4.64 10*6/uL Normal 4.6-6.2 [facility] Comment on above: Performed By: #### L 100.0500, L500.4050, [id number] #### [facility] [address] [place], [address] RDW SD 47.8 fl High 35.1-43.9 [facility] Comment on above: Performed By: #### L 100.0500, L500.4050, [id number] #### [facility] [address] [place], [address] WBC (Bld) [#/Vol] 8.2 10*3/uL Normal 4.4-11.0 [facility] Comment on above: Performed By: #### L 100.0500, L500.4050, [id number] #### [facility] [address] [place], [address] Absolute Neut Normal 2.0-7.7 [facility] Comment on above: Order Comment: Order Date: 07/30/23Order Info: 0184-1 - CBCD Result Comment: PT A LREADY AHD DONE Performed By: #### L 100.0500, L500.4050, [id number] #### [facility] [address] [place], [address] HCT Normal 40-54 [facility] Comment on above: Order Comment: Order Date: 07/30/23Order Info: [id number] - CBCD Result Comment: PT A LREADY AHD DONE Performed By: #### L 100.0500, L500.4050, [id number] #### [facility] [address] [place], [address] HGB Normal 13.0-16.5 [facility] Comment on above: Order Comment: Order Date: 07/30/23Order Info: 0184-1 - CBCD Result Comment: PT A LREADY AHD DONE Performed By: #### L 100.0500, L500.4050, [id number] #### [facility] [address] [place], [address] MCH Normal 27.0-32.0 [facility] Comment on above: Order Comment: Order Date: 07/30/23Order Info: 0184-1 - CBCD Result Comment: PT A LREADY AHD DONE Performed By: #### L 100.0500, L500.4050, [id number] #### [facility] [address] [place], [address] MCHC Normal 32-36 [facility] Comment on above: Order Comment: Order Date: 07/30/23Order Info: [id number] - CBCD Result Comment: PT A LREADY AHD DONE Performed By: #### L 100.0500, L500.4050, [id number] #### [facility] [address] [place], [address] MCV Normal 80-94 [facility] Comment on above: Order Comment: Order Date: 07/30/23Order Info: [id number] - CBCD Result Comment: PT A LREADY AHD DONE Performed By: #### L 100.0500, L500.4050, [id number] #### [facility] [address] [place], [address] NEUT% Normal 47-70 [facility] Comment on above: Order Comment: Order Date: 07/30/23Order Info: [id number]- - CBCD Result Comment: PT A LREADY AHD DONE Performed By: #### L 100.0500, L500.4050, [id number] #### [facility] [address] [place], [address] PLT Normal 150-450 [facility] Comment on above: Order Comment: Order Date: 07/30/23Order Info: [id number] - CBCD Result Comment: PT A LREADY AHD DONE Performed By: #### L 100.0500, L500.4050, [id number] #### [facility] [address] [place], [address] RBC Normal 4.6-6.2 [facility] Comment on above: Order Comment: Order Date: 07/30/23Order Info: [id number] - CBCD Result Comment: PT A LREADY AHD DONE Performed By: #### L 100.0500, L500.4050, [id number] #### [facility] [address] [place], [address] RDW CV Normal 11.6-14.6 [facility] Comment on above: Order Comment: Order Date: 07/30/23Order Info: [id number] - CBCD Result Comment: PT A LREADY AHD DONE Performed By: #### L 100.0500, L500.4050, [id number] #### [facility] [address] [place], [address] RDW SD Normal 35.1-43.9 [facility] Comment on above: Order Comment: Order Date: 07/30/23Order Info: [id number] - CBCD Result Comment: PT A LREADY AHD DONE Performed By: #### L 100.0500, L500.4050, [id number] #### [facility] [address] [place], [address] WBC Normal 4.4-11.0 [facility] Comment on above: Order Comment: Order Date: 07/30/23Order Info: [id number] - CBCD Result Comment: PT A LREADY AHD DONE Performed By: #### L 100.0500, L500.4050, [id number] #### [facility] [address] [place], [address] Carbon dioxide, total [Moles /volume] in Central venous bloodon 09-11-2024 CO2 [Moles/Vol] 24.9 mmol/L 21.0-32.0 [facility] Chloride assayon 09-11-2024 Chloride [Moles/Vol] 102 mmol/L 98-108 [facility] Comprehensive Metabolic Prof ilon 09-11-2024 Albumin [Mass/Vol] 4.3 g/dL Normal 3.4-4.8 [facility] Comment on above: Performed By: #### L 100.0500, L500.4050, [id number] #### [facility] [address] [place], [address] Albumin/Globulin [Mass ratio] 1.5 {ratio} Normal 0.9-2.4 [facility] Comment on above: Performed By: #### L 100.0500, L500.4050, [id number] #### [facility] [address] [place], [address] ALK PHOS 103 U/L Normal 40-129 [facility] Comment on above: Performed By: #### L 100.0500, L500.4050, [id number] #### [facility] [address] [place], [address] ALT [Catalytic activity/Vol] 22 U/L Normal <=46 [facility] Comment on above: Performed By: #### L 100.0500, L500.4050, [id number] #### [facility] [address] [place], [address] AST [Catalytic activity/Vol] 17 U/L Normal <=37 [facility] Comment on above: Performed By: #### L 100.0500, L500.4050, [id number] #### [facility] [address] [place], [address] Bilirubin [Mass/Vol] 0.92 mg/dL Normal 0.00-1.30 [facility] Comment on above: Performed By: #### L 100.0500, L500.4050, [id number] #### [facility] [address] [place], [address] BUN/CRE 12.8 RATIO Normal 10-20 [facility] Comment on above: Performed By: #### L 100.0500, L500.4050, [id number] #### [facility] [address] [place], [address] Calcium [Mass/Vol] 9.2 mg/dL Normal 7.6-11.0 [facility] Comment on above: Performed By: #### L 100.0500, L500.4050, [id number] #### [facility] [address] [place], [address] Chloride [Moles/Vol] 102 mmol/L Normal 98-108 [facility] Comment on above: Performed By: #### L 100.0500, L500.4050, [id number] #### [facility] [address] [place], [address] CO2 [Moles/Vol] 24.9 mmol/L Normal 21.0-32.0 [facility] Comment on above: Performed By: #### L 100.0500, L500.4050, [id number] #### [facility] [address] [place], [address] Creatinine [Mass/Vol] 1.55 mg/dL High 0.70-1.20 [facility] Comment on above: Performed By: #### L 100.0500, L500.4050, [id number] #### [facility] [address] [place], [address] GAP 11 Normal 5-15 [facility] Comment on above: Performed By: #### L 100.0500, L500.4050, [id number] #### [facility] [address] [place], [address] GFR/1.73 sq M.predicted among non-blacks MDRD (S/P/Bld) [Vol rate/Area] 48 mL/min/{1.73_m2} Low >60 [facility] Comment on above: Result Comment: mL/m in/1.73m2 CKD-EPI Creatinine Equation (2020) Performed By: #### L 100.0500, L500.4050, [id number] #### [facility] [address] [place], [address] Globulin (S) [Mass/Vol] 2.9 g/dL Normal 2.2-4.2 [facility] Comment on above: Performed By: #### L 100.0500, L500.4050, L501.9520 #### [facility] [address] [place], [address] Glucose [Mass/Vol] 122 mg/dL High 70-99 [facility] Comment on above: Performed By: #### L 100.0500, L500.4050, L501.9520 #### [facility] [address] [place], [address] Potassium [Moles/Vol] 4.1 mmol/L Normal 3.3-5.1 [facility] Comment on above: Performed By: #### L 100.0500, L500.4050, L501.9520 #### [facility] [address] [place], [address] Sodium [Moles/Vol] 138 mmol/L Normal 133-145 [facility] Comment on above: Performed By: #### L 100.0500, L500.4050, L501.9520 #### [facility] [address] [place], [address] T PROT 7.2 g/dL Normal 5.9-8.4 [facility] Comment on above: Performed By: #### L 100.0500, L500.4050, L501.9520 #### [facility] [address] [place], [address] Urea nitrogen [Mass/Vol] 20 mg/dL High 4-19 [facility] Comment on above: Performed By: #### L 100.0500, L500.4050, L501.9520 #### [facility] [address] [place], [address] ALB Normal 3.4-4.8 [facility] Comment on above: Order Comment: Order Date: 07/30/23Order Info: [id number] - CMPOrder Info: [id number] - LIPIDOrder Info: [id number] - MG Result Comment: PT A LREADY AHD DONE Performed By: #### L 100.0500, L500.4050, L501.9520 #### [facility] [address] [place], [address] ALK PHOS Normal 40-129 [facility] Comment on above: Order Comment: Order Date: 07/30/23Order Info: [id number] - CMPOrder Info: [id number] - LIPIDOrder Info: [id number] - MG Result Comment: PT A LREADY AHD DONE Performed By: #### L 100.0500, L500.4050, L501.9520 #### [facility] [address] [place], [address] ALT Normal <=46 [facility] Comment on above: Order Comment: Order Date: 07/30/23Order Info: [id number] - CMPOrder Info: [id number] - LIPIDOrder Info: [id number] - MG Result Comment: PT A LREADY AHD DONE Performed By: #### L 100.0500, L500.4050, L501.9520 #### [facility] [address] [place], [address] AST Normal <=37 [facility] Comment on above: Order Comment: Order Date: 07/30/23Order Info: [id number] - CMPOrder Info: [id number] - LIPIDOrder Info: [id number] - MG Result Comment: PT A LREADY AHD DONE Performed By: #### L 100.0500, L500.4050, L501.9520 #### [facility] [address] [place], [address] BUN Normal 4-19 [facility] Comment on above: Order Comment: Order Date: 07/30/23Order Info: [id number] - CMPOrder Info: [id number] - LIPIDOrder Info: [id number] - MG Result Comment: PT A LREADY AHD DONE Performed By: #### L 100.0500, L500.4050, L501.9520 #### [facility] [address] [place], [address] BUN/CRE Normal 10-20 [facility] Comment on above: Order Comment: Order Date: 07/30/23Order Info: [id number] - CMPOrder Info: [id number] - LIPIDOrder Info: [id number] - MG Result Comment: PT A LREADY AHD DONE Performed By: #### L 100.0500, L500.4050, L501.9520 #### [facility] [address] [place], [address] Calcium Normal 7.6-11.0 [facility] Comment on above: Order Comment: Order Date: 07/30/23Order Info: [id number] - CMPOrder Info: [id number] - LIPIDOrder Info: [id number] - MG Result Comment: PT A LREADY AHD DONE Performed By: #### L 100.0500, L500.4050, L501.9520 #### [facility] [address] [place], [address] CL Normal 98-108 [facility] Comment on above: Order Comment: Order Date: 07/30/23Order Info: [id number] - CMPOrder Info: [id number] - LIPIDOrder Info: [id number] - MG Result Comment: PT A LREADY AHD DONE Performed By: #### L 100.0500, L500.4050, L501.9520 #### [facility] [address] [place], [address] CO2 Normal 21.0-32.0 [facility] Comment on above: Order Comment: Order Date: 07/30/23Order Info: [id number] - CMPOrder Info: [id number] - LIPIDOrder Info: [id number] - MG Result Comment: PT A LREADY AHD DONE Performed By: #### L 100.0500, L500.4050, L501.9520 #### [facility] [address] [place], [address] CREAT,SERUM Normal 0.70-1.20 [facility] Comment on above: Order Comment: Order Date: 07/30/23Order Info: [id number] - CMPOrder Info: [id number] - LIPIDOrder Info: [id number] - MG Result Comment: PT A LREADY AHD DONE Performed By: #### L 100.0500, L500.4050, L501.9520 #### [facility] [address] [place], [address] eGFR Normal >60 [facility] Comment on above: Order Comment: Order Date: 07/30/23Order Info: [id number] - CMPOrder Info: [id number] - LIPIDOrder Info: [id number] - MG Result Comment: PT A LREADY AHD DONE Performed By: #### L 100.0500, L500.4050, L501.9520 #### [facility] [address] [place], [address] GAP Normal 5-15 [facility] Comment on above: Order Comment: Order Date: 07/30/23Order Info: [id number] - CMPOrder Info: [id number] - LIPIDOrder Info: [id number] - MG Result Comment: PT A LREADY AHD DONE Performed By: #### L 100.0500, L500.4050, L501.9520 #### [facility] [address] [place], [address] GLU Normal 70-99 [facility] Comment on above: Order Comment: Order Date: 07/30/23Order Info: [id number] - CMPOrder Info: [id number] - LIPIDOrder Info: [id number] - MG Result Comment: PT A LREADY AHD DONE Performed By: #### L 100.0500, L500.4050, L501.9520 #### [facility] [address] [place], [address] Potassium Normal 3.3-5.1 [facility] Comment on above: Order Comment: Order Date: 07/30/23Order Info: [id number] - CMPOrder Info: [id number] - LIPIDOrder Info: [id number] - MG Result Comment: PT A LREADY AHD DONE Performed By: #### L 100.0500, L500.4050, L501.9520 #### [facility] [address] [place], [address] T BILI Normal 0.00-1.30 [facility] Comment on above: Order Comment: Order Date: 07/30/23Order Info: [id number] - CMPOrder Info: [id number] - LIPIDOrder Info: [id number] - MG Result Comment: PT A LREADY AHD DONE Performed By: #### L 100.0500, L500.4050, L501.9520 #### [facility] [address] [place], [address] T PROT Normal 5.9-8.4 [facility] Comment on above: Order Comment: Order Date: 07/30/23Order Info: [id number] - CMPOrder Info: [id number] - LIPIDOrder Info: [id number] - MG Result Comment: PT A LREADY AHD DONE Performed By: #### L 100.0500, L500.4050, L501.9520 #### [facility] [address] [place], [address] Comprehensive Metabolic Profil Normal 133-145 [facility] Comment on above: Order Comment: Order Date: 07/30/23Order Info: [id number] - CMPOrder Info: [id number] - LIPIDOrder Info: [id number] - MG Result Comment: PT A LREADY AHD DONE Performed By: #### L 100.0500, L500.4050, L501.9520 #### [facility] [address] [place], [address] Eosinophil percentageon 04-2 -2024 Eosinophils/100 WBC (Bld) 0.7 % 0-5 [facility] Erythrocyte distribution wid th ratioon 09-11-2024 Erythrocyte distribution width (RBC) [Ratio] 14.4 % 11.6-14.6 [facility] Erythrocyte distribution wid th standard deviationon 09-11-2024 Erythrocyte distribution width (RBC) [Ratio] 47.8 fl High 35.1-43.9 [facility] Glomerular filtration rate ( GFR) estimation/1.73 sq m using serum, plasma, or whole bon 09-11-2024 GFR/1.73 sq M.predicted among non-blacks MDRD (S/P/Bld) [Vol rate/Area] 48 mL/min/{1.73_m2} Low >60 [facility] Comment on above: mL/min/1.73m2 CKD-EP I Creatinine Equation (2020) Hematocrit Auto (Bld) [Volum e fraction]on 09-11-2024 Hematocrit (Bld) [Volume fraction] 42.1 % 40-54 [facility] Hemoglobin measurementon Hemoglobin (Bld) [Mass/Vol] 14.0 g/dL 13.0-16.5 [facility] Immature granulocytes/100 WB C Auto (Bld)on 09-11-2024 Immature granulocytes/100 WBC (Bld) 0.500 % 0.0-0.9 [facility] Comment on above: IG% - Immature Granu locytes (promyelocytes, myelocytes and metamyelocytes) > 1% indicates that a LEFT SHIFT is Present. Laboratory - Chemistry and C hemistry - challengeon 09-11-2024 AST [Catalytic activity/Vol] 17 U/L <38 [facility] Lipid Profileon 09-11-2024 TRIG Normal [facility] Comment on above: Order Comment: Order Date: 07/30/23Order Info: [id number] - CMPOrder Info: [id number] - LIPIDOrder Info: [id number] - MG Result Comment: PT A LREADY AHD DONE The drugs N-Acetylcysteine and Metamizole may falsely depress this assay. Performed By: #### L 100.0500, L500.4050, L501.9520 #### [facility] [address] [place], [address] CHOL Normal <=200 [facility] Comment on above: Order Comment: Order Date: 07/30/23Order Info: [id number] - CMPOrder Info: [id number] - LIPIDOrder Info: [id number] - MG Result Comment: PT A LREADY AHD DONE Performed By: #### L 100.0500, L500.4050, L501.9520 #### [facility] [address] [place], [address] CHOL:HDL Normal [facility] Comment on above: Order Comment: Order Date: 07/30/23Order Info: [id number] - CMPOrder Info: [id number] - LIPIDOrder Info: [id number] - MG Result Comment: PT A LREADY AHD DONE Performed By: #### L 100.0500, L500.4050, L501.9520 #### [facility] [address] [place], [address] CLDL Normal [facility] Comment on above: Order Comment: Order Date: 07/30/23Order Info: [id number] - CMPOrder Info: [id number] - LIPIDOrder Info: [id number] - MG Result Comment: PT A LREADY AHD DONE Performed By: #### L 100.0500, L500.4050, L501.9520 #### [facility] [address] [place], [address] HDL Normal [facility] Comment on above: Order Comment: Order Date: 07/30/23Order Info: [id number] - CMPOrder Info: [id number] - LIPIDOrder Info: [id number] - MG Result Comment: PT A LREADY AHD DONE Performed By: #### L 100.0500, L500.4050, L501.9520 #### [facility] [address] [place], [address] VLDL Normal 5-40 [facility] Comment on above: Order Comment: Order Date: 03/08/24Order Info: [id number] - CMPOrder Info: [id number] - LIPIDOrder Info: [id number] - MG Result Comment: PT A LREADY AHD DONE Performed By: #### L 100.0500, L500.4050, L501.9520 #### [facility] [address] [place], [address] MCV (mean corpuscular volume ) determinationon 09-11-2024 MCV (RBC) [Entitic vol] 90.7 fL 80-94 [facility] Mean corpuscular hemoglobin (MCH) determinationon 09-11-2024 MCH (RBC) [Entitic mass] 30.2 pg 27.0-32.0 [facility] Mean corpuscular hemoglobin concentration (MCHC) determinationon 09-11-2024 MCHC (RBC) [Mass/Vol] 33.3 g/dL 32-36 [facility] Mean platelet volume determi nationon 09-11-2024 Platelet mean volume (Bld) [Entitic vol] 9.6 fL 6.2-12.0 [facility] Monocyte percentageon 2024 Monocytes/100 WBC (Bld) 6.4 % 0-10 [facility] Neutrophil percentageon 08-23-2024 Neutrophils/100 WBC (Bld) 72.3 % High 47-70 [facility] Nucleated red blood cell per centageon 09-11-2024 Nucleated RBC/100 WBC (Bld) [Ratio] 0 % 0-5 [facility] Platelet counton 09-11-2024 Platelets (Bld) [#/Vol] 249 10*3/uL 150-450 [facility] Potassium measurement (mass/ volume)on 09-11-2024 Potassium (Unsp spec) [Mass/Vol] 4.1 mmol/L 3.3-5.1 [facility] Protein+Creatinine Ratio,Uri neon 09-11-2024 PROT:CRE RATIO Normal 0-200 [facility] Comment on above: Result Comment: PT A LREADY AHD DONE Performed By: #### L 506.0200, L400.0001, L506.1001, L503.0106 #### [facility] [address] [place], [address] PROTEIN,UR.RAN. Normal 0.0-12.0 [facility] Comment on above: Result Comment: PT A LREADY AHD DONE Performed By: #### L 506.0200, L400.0001, L506.1001, L503.0106 #### [facility] [address] [place], [address] UR CREAT Normal 39.00-259. 00 [facility] Comment on above: Result Comment: PT A LREADY AHD DONE Performed By: #### L 506.0200, L400.0001, L506.1001, L503.0106 #### [facility] [address] [place], [address] RBC Auto (Bld) [#/Vol]on RBC (Bld) [#/Vol] 4.64 10*6/uL 4.6-6.2 [facility] Serum creatinine measurement (mass/volume)on 09-11-2024 Creatinine [Mass/Vol] 1.55 mg/dL High 0.70-1.20 [facility] Serum globulin measurementon 09-11-2024 Globulin (S) [Mass/Vol] 2.9 g/dL 2.2-4.2 [facility] Serum glucose measurement (m ass/volume)on 09-11-2024 Glucose [Mass/Vol] 122 mg/dL High 70-99 [facility] Serum or plasma alanine newman otransferase (ALT) measurementon 09-11-2024 ALT [Catalytic activity/Vol] 22 U/L <47 [facility] Serum or plasma albumin renu urement (mass/volume)on 09-11-2024 Albumin [Mass/Vol] 4.3 g/dL 3.4-4.8 [facility] Serum or plasma albumin/glob ulin mass ratioon 09-11-2024 Albumin/Globulin [Mass ratio] 1.5 {ratio} 0.9-2.4 [facility] Serum or plasma alkaline christal sphatase measurementon 04-21-2025 ALP [Catalytic activity/Vol] 103 U/L 40-129 [facility] Serum or plasma calcium renu urement (mass/volume)on 09-11-2024 Calcium [Mass/Vol] 9.2 mg/dL 7.6-11.0 [facility] Serum or plasma urea nitroge n measurement (mass/volume)on 09-11-2024 Urea nitrogen [Mass/Vol] 20 mg/dL High 4-19 [facility] Sodium levelon 09-11-2024 Sodium [Moles/Vol] 138 mmol/L 133-145 [facility] TSH DL <= 0.005 mIU/L Qnon 0 09-11-2024 TSH Qn 1.880 uIU/mL 0.300-4.20 0 [facility] Thyroid Stim Hormone (TSH)on 09-11-2024 TSH 1.880 uIU/mL Normal 0.300-4.20 0 [facility] Comment on above: Performed By: #### L 100.0500, L500.4050, L501.9520 #### [facility] [place] [address], [address] Total proteinon 09-11-2024 Protein [Mass/Vol] 7.2 g/dL 5.9-8.4 [facility] White blood cell (WBC) count on 09-11-2024 WBC (Bld) [#/Vol] 8.2 10*3/uL 4.4-11.0 [facility] 36on 09-07-2024 36 See order for C on 09/14/2024. Normal [facility] 36 Phone to patient, Dr Carrol Ortega has reviewed his ECHO, reduce EF as compared to previous. He call the office with increased Episodes of angina. Taking more SL NTG than usual. Have max out his anti-angina medications. Holter monitor without atrial fibrillation. Low burden of PAC's and PVC's. Will need to fax order for labs to [facility]. Will add on for 09/14/2024 at 11 am., He will need an EKG the day of, has a recent OV from 08/24/2024. Notified patient of date and time. Normal [facility] Absolute lymphocyte countOrd ered By: Finn Ferrell on 08-31-2024 Lymphocytes Auto (Unsp spec) [#/Vol] 1.47 10*3/uL 0.83-4.51 [facility] Absolute neutrophil countOrd ered By: Finn Ferrell on 08-31-2024 Neutrophils (Bld) [#/Vol] 5.5 10*3/uL 2.0-7.7 [facility] Anion gap in Serum or Plasma Ordered By: Finn Ferrell on 08-31-2024 Anion gap [Moles/Vol] 12 mmol/L - [facility] Automated lymphocyte count a s percentage of total leukocytesOrdered By: Finn Ferrell on 08-31-2024 Lymphocytes/100 WBC Auto (Unsp spec) 19.5 % [facility] BUN/creatinine ratioOrdered By: Finn Ferrell on 08-31-2024 Urea nitrogen/Creatinine [Mass ratio] 13.5 mg/mg 03-12 [facility] Basophil percentageOrdered B y: Finn Ferrell on 08-31-2024 Basophils/100 WBC (Bld) 0.7 % 0- [facility] Bilirubin, totalOrdered By: Finn Ferrell on 08-31-2024 Bilirubin [Mass/Vol] 0.98 mg/dL 0.00-1.30 [facility] CBC W/Diff, Automatedon 08-22 Absolute Lymph 1.47 X10 3/uL Normal 0.83-4.51 [facility] Comment on above: Performed By: #### L 100.0500, L500.4050, L501.9520 #### [facility] [address] [place], [address] Absolute Neut 5.5 X10 3/uL Normal 2.0-7.7 [facility] Comment on above: Performed By: #### L 100.0500, L500.4050, L501.9520 #### [facility] [address] [place], [address] Basophils/100 WBC (Bld) 0.7 % Normal 0-1 [facility] Comment on above: Performed By: #### L 100.0500, L500.4050, L501.9520 #### [facility] [address] [place], [address] Eosinophils/100 WBC (Bld) 0.5 % Normal 0-5 [facility] Comment on above: Performed By: #### L 100.0500, L500.4050, L501.9520 #### [facility] [address] [place], [address] Erythrocyte distribution width (RBC) [Ratio] 14.2 % Normal 11.6-14.6 [facility] Comment on above: Performed By: #### L 100.0500, L500.4050, L501.9520 #### [facility] [address] [place], [address] Hematocrit (Bld) [Volume fraction] 42.6 % Normal 40-54 [facility] Comment on above: Performed By: #### L 100.0500, L500.4050, L501.9520 #### [facility] [address] [place], [address] Hemoglobin (Bld) [Mass/Vol] 14.0 g/dL Normal 13.0-16.5 [facility] Comment on above: Performed By: #### L 100.0500, L500.4050, L501.9520 #### [facility] [address] [place], [address] IG% 0.700 Normal 0.0-0.9 [facility] Comment on above: Result Comment: IG% - Immature Granulocytes (promyelocytes, myelocytes and metamyelocytes) > 1% indicates that a LEFT SHIFT is Present. Performed By: #### L 100.0500, L500.4050, L501.9520 #### [facility] [address] [place], [address] Lymphocytes/100 WBC (Bld) 19.5 % Normal 19-41 [facility] Comment on above: Performed By: #### L 100.0500, L500.4050, L501.9520 #### [facility] [address] [place], [address] MCH (RBC) [Entitic mass] 30.0 pg Normal 27.0-32.0 [facility] Comment on above: Performed By: #### L 100.0500, L500.4050, L501.9520 #### [facility] [address] [place], [address] MCHC (RBC) [Mass/Vol] 32.9 g/dL Normal 32-36 [facility] Comment on above: Performed By: #### L 100.0500, L500.4050, L501.9520 #### [facility] [address] [place], [address] MCV (RBC) [Entitic vol] 91.4 fL Normal 80-94 [facility] Comment on above: Performed By: #### L 100.0500, L500.4050, L501.9520 #### [facility] [address] [place], [address] Monocytes/100 WBC (Bld) 5.7 % Normal 0-10 [facility] Comment on above: Performed By: #### L 100.0500, L500.4050, L501.9520 #### [facility] [address] [place], [address] Neutrophils/100 WBC (Bld) 72.9 % High 47-70 [facility] Comment on above: Performed By: #### L 100.0500, L500.4050, L501.9520 #### [facility] [address] [place], [address] Nucleated RBC (Bld) [#/Vol] 0 10*3/uL Normal 0-5 [facility] Comment on above: Performed By: #### L 100.0500, L500.4050, L501.9520 #### [facility] [address] [place], [address] Platelet mean volume (Bld) [Entitic vol] 9.8 fL Normal 6.2-12.0 [facility] Comment on above: Performed By: #### L 100.0500, L500.4050, L501.9520 #### [facility] [address] [place], [address] Platelets (Bld) [#/Vol] 271 10*3/uL Normal 150-450 [facility] Comment on above: Performed By: #### L 100.0500, L500.4050, L501.9520 #### [facility] [address] [place], [address] RBC (Bld) [#/Vol] 4.66 10*6/uL Normal 4.6-6.2 [facility] Comment on above: Performed By: #### L 100.0500, L500.4050, L501.9520 #### [facility] [address] [place], [address] RDW SD 47.3 fl High 35.1-43.9 [facility] Comment on above: Performed By: #### L 100.0500, L500.4050, L501.9520 #### [facility] [address] [place], [address] WBC (Bld) [#/Vol] 7.5 10*3/uL Normal 4.4-11.0 [facility] Comment on above: Performed By: #### L 100.0500, L500.4050, L501.9520 #### [facility] [address] [place], [address] Calculated total iron bindin g capacityOrdered By: Finn Ferrell on 08-31-2024 Total Iron Binding Capacity 289 ug/dL 250-450 [facility] Calculated very low density lipoprotein (VLDL) cholesterol measurementOrdered By: Finn Ferrell on 08-31-2024 Calculated very low density lipoprotein (VLDL) cholesterol measurement 44 mg/dL High 5-40 [facility] VLDL Cholesterol 44 mg/dL High 5-40 [facility] Carbon dioxide, total [Moles /volume] in Central venous bloodOrdered By: Finn Ferrell on 08-31-2024 CO2 [Moles/Vol] 26.1 mmol/L 21.0-32.0 [facility] Chloride assayOrdered By: Tanika Ferrell on 08-31-2024 Chloride [Moles/Vol] 104 mmol/L 98-108 [facility] Comprehensive Metabolic Prof ilon 08-31-2024 Albumin [Mass/Vol] 4.3 g/dL Normal 3.4-4.8 [facility] Comment on above: Performed By: #### L 100.0500, L500.4050, L501.9520 #### [facility] [address] [place], [address] Albumin/Globulin [Mass ratio] 1.4 {ratio} Normal 0.9-2.4 [facility] Comment on above: Performed By: #### L 100.0500, L500.4050, L501.9520 #### [facility] [address] [place], [address] ALK PHOS 100 U/L Normal 40-129 [facility] Comment on above: Performed By: #### L 100.0500, L500.4050, L501.9520 #### [facility] [address] [place], [address] ALT [Catalytic activity/Vol] 22 U/L Normal <=46 [facility] Comment on above: Performed By: #### L 100.0500, L500.4050, L501.9520 #### [facility] [address] [place], [address] AST [Catalytic activity/Vol] 21 U/L Normal <=37 [facility] Comment on above: Performed By: #### L 100.0500, L500.4050, L501.9520 #### [facility] [address] [place], [address] Bilirubin [Mass/Vol] 0.98 mg/dL Normal 0.00-1.30 [facility] Comment on above: Performed By: #### L 100.0500, L500.4050, L501.9520 #### [facility] [address] [place], [address] BUN/CRE 13.5 RATIO Normal 10-20 [facility] Comment on above: Performed By: #### L 100.0500, L500.4050, L501.9520 #### [facility] [address] [place], [address] Calcium [Mass/Vol] 9.7 mg/dL Normal 7.6-11.0 [facility] Comment on above: Performed By: #### L 100.0500, L500.4050, L501.9520 #### [facility] [address] [place], [address] Chloride [Moles/Vol] 104 mmol/L Normal 98-108 [facility] Comment on above: Performed By: #### L 100.0500, L500.4050, L501.9520 #### [facility] [address] [place], [address] CO2 [Moles/Vol] 26.1 mmol/L Normal 21.0-32.0 [facility] Comment on above: Performed By: #### L 100.0500, L500.4050, L501.9520 #### [facility] [address] [place], [address] Creatinine [Mass/Vol] 1.59 mg/dL High 0.70-1.20 [facility] Comment on above: Performed By: #### L 100.0500, L500.4050, L501.9520 #### [facility] [address] [place], [address] GAP 12 Normal 5-15 [facility] Comment on above: Performed By: #### L 100.0500, L500.4050, L501.9520 #### [facility] [address] [place], [address] GFR/1.73 sq M.predicted among non-blacks MDRD (S/P/Bld) [Vol rate/Area] 47 mL/min/{1.73_m2} Low >60 [facility] Comment on above: Result Comment: mL/m in/1.73m2 CKD-EPI Creatinine Equation (2020) Performed By: #### L 100.0500, L500.4050, L501.9520 #### [facility] [address] [place], [address] Globulin (S) [Mass/Vol] 3.1 g/dL Normal 2.2-4.2 [facility] Comment on above: Performed By: #### L 100.0500, L500.4050, L501.9520 #### [facility] [address] [place], [address] Glucose [Mass/Vol] 144 mg/dL High 70-99 [facility] Comment on above: Performed By: #### L 100.0500, L500.4050, L501.9520 #### [facility] [address] [place], [address] Potassium [Moles/Vol] 4.1 mmol/L Normal 3.3-5.1 [facility] Comment on above: Performed By: #### L 100.0500, L500.4050, [id number] #### [facility] [address] [place], [address] Sodium [Moles/Vol] 142 mmol/L Normal 133-145 [facility] Comment on above: Performed By: #### L 100.0500, L500.4050, [id number] #### [facility] [address] [place], [address] T PROT 7.3 g/dL Normal 5.9-8.4 [facility] Comment on above: Performed By: #### L 100.0500, L500.4050, [id number] #### [facility] [address] [place], [address] Urea nitrogen [Mass/Vol] 22 mg/dL High 4-19 [facility] Comment on above: Performed By: #### L 100.0500, L500.4050, [id number] #### [facility] [address] [place], [address] Creatinine Unsp time (U) [Ma ss/Vol]Ordered By: Finn Ferrell on 08-31-2024 Creatinine (U) [Mass/Vol] 126.00 mg/dL 39.00-259. 00 [facility] Eosinophil percentageOrdered By: Finn Ferrell on 08-31-2024 Eosinophils/100 WBC (Bld) 0.5 % 0-5 [facility] Erythrocyte distribution wid th (RBC) [Ratio]Ordered By: Finn Ferrell on 08-31-2024 Erythrocyte distribution width (RBC) [Entitic vol] 47.3 fL High 35.1-43.9 [facility] Erythrocyte distribution wid th ratioOrdered By: Finn Ferrell on 08-31-2024 Erythrocyte distribution width (RBC) [Ratio] 14.2 % 11.6-14.6 [facility] Erythrocyte distribution wid th standard deviationOrdered By: Finn Ferrell on 08-31-2024 Erythrocyte distribution width (RBC) [Ratio] 47.3 fl High 35.1-43.9 [facility] Ferritinon 08-31-2024 Ferritin [Mass/Vol] 473 ng/mL High 37-417 [facility] Comment on above: Performed By: #### L 501.9910 #### [facility] [address] [place], [place], [id number] GFR/1.73 sq M.predicted yony g non-blacks MDRD (S/P/Bld) [Vol rate/Area]Ordered By: Finn Ferrell on 08-31-2024 Estimated GFR (MDRD) Non-Af Amer 47 Low >60 [facility] Comment on above: mL/min/1.73m2 CKD-EP I Creatinine Equation (2020) Glomerular filtration rate ( GFR) estimation/1.73 sq m using serum, plasma, or whole bOrdered By: Finn Ferrell on 08-31-2024 GFR/1.73 sq M.predicted among non-blacks MDRD (S/P/Bld) [Vol rate/Area] 47 mL/min/{1.73_m2} Low >60 [facility] Comment on above: mL/min/1.73m2 CKD-EP I Creatinine Equation (2020) Hematocrit Auto (Bld) [Volum e fraction]Ordered By: Finn Ferrell on 08-31-2024 Hematocrit (Bld) [Volume fraction] 42.6 % 40-54 [facility] Hemoglobin measurementOrdere d By: Finn Ferrell on 08-31-2024 Hemoglobin (Bld) [Mass/Vol] 14.0 g/dL 13.0-16.5 [facility] Immature granulocytes/100 WB C Auto (Bld)Ordered By: Finn Ferrell on 08-31-2024 Immature granulocytes/100 WBC (Bld) 0.700 % 0.0-0.9 [facility] Comment on above: IG% - Immature Granu locytes (promyelocytes, myelocytes and metamyelocytes) > 1% indicates that a LEFT SHIFT is Present. Iron (Unsp spec) [Mass/Mass] Ordered By: Finn Ferrell on 08-31-2024 Iron [Mass/Vol] 79 ug/dL 65-175 [facility] Iron measurement (mass/mass) Ordered By: Finn Ferrell on 08-31-2024 Iron (Unsp spec) [Mass/Mass] 79 ug/dL 65-175 [facility] Iron saturation [Mass fracti on]Ordered By: Finn Ferrell on 08-31-2024 Iron Saturation 27.0 % 9-55 [facility] Iron+Iron Binding Capacityon 08-31-2024 Iron [Mass/Vol] 79 ug/dL Normal 65-175 [facility] Comment on above: Performed By: #### L 501.9910 #### [facility] [address] [place], [address] IRON SATURATION 27.0 Normal 9-55 [facility] Comment on above: Performed By: #### L [id number] #### [facility] [address] [place], [address] TIBC 289 ug/dL Normal 250-450 [facility] Comment on above: Performed By: #### L [id number] #### [facility] [address] [place], [address] UIBC 210 ug/dL Low 228-428 [facility] Comment on above: Performed By: #### L 501.9910 #### [facility] [address] [place], [address] LDL calc ser/plasOrdered By: Finn Ferrell on 08-31-2024 Cholesterol in LDL [Mass/Vol] 112 mg/dL [facility] Comment on above: Bhwdtaembq=692-842 m g/dL & Higher Rudh=191 mg/dL or greater LDL Cholesterol, Calculated 112 mg/dL [facility] Comment on above: Flcuxggahv=040-667 m g/dL & Higher Tbqv=052 mg/dL or greater Laboratory - Chemistry and C hemistry - challengeOrdered By: Finn Ferrell on 08-31-2024 AST [Catalytic activity/Vol] 21 U/L <38 [facility] Lipid Profileon 08-31-2024 CHOL:HDL 3.83 Normal [facility] Comment on above: Performed By: #### L 100.0500, L500.4050, L501.9520 #### [facility] [address] [place], [address] Cholesterol [Mass/Vol] 212 mg/dL High <=200 [facility] Comment on above: Result Comment: Chol esterol level, Desirable <200 mg/dL Borderline high cholesterol 200-239 mg/dL High cholesterol >=240 mg/dL Recommendations of the NCEP Adult Treatment Panel for the following risk-cutoff thresholds for the [place] population. Performed By: #### L 100.0500, L500.4050, L501.9520 #### [facility] [address] [place], [address] Cholesterol in HDL [Mass/Vol] 55 mg/dL Normal [facility] Comment on above: Result Comment: Lisa onal Cholesterol Education Program (NCEP) guidelines: <40 mg/dL: Low HDL-cholesterol (major risk factor for CHD) >= 60 mg/dL: High HDL-cholesterol (negative risk factor for CHD) HDL-cholesterol is affected by a number of factors, e.g. smoking, exercise, hormones, sex and age. Performed By: #### L 100.0500, L500.4050, L501.9520 #### [facility] [address] [place], [address] Cholesterol in LDL [Mass/Vol] 112 mg/dL Normal [facility] Comment on above: Result Comment: Bord vlyeqw=775-760 mg/dL Higher Nuol=831 mg/dL or greater Performed By: #### L 100.0500, L500.4050, [id number] #### [facility] [address] [place], [address] Cholesterol in VLDL [Mass/Vol] 44 mg/dL High 5-40 [facility] Comment on above: Performed By: #### L 100.0500, L500.4050, [id number] #### [facility] [address] [place], [address] Triglyceride [Mass/Vol] 222 mg/dL High [facility] Comment on above: Result Comment: The drugs N-Acetylcysteine and Metamizole may falsely depress this assay. Normal range: <150 mg/dL Borderline High: 150-199 mg/dL High: 200-499 mg/dL Very High: >500 mg/dL Performed By: #### L 100.0500, L500.4050, L501.9520 #### [facility] [address] [place], [address] Lymphocytes Auto (Unsp spec) [#/Vol]Ordered By: Finn Ferrell on 08-31-2024 Lymphocytes (Bld) [#/Vol] 1.47 10*3/uL 0.83-4.51 [facility] Lymphocytes/100 WBC Auto (Un sp spec)Ordered By: Finn Ferrell on 08-31-2024 Lymphocytes/100 WBC (Bld) 19.5 % 19-41 [facility] MCV (mean corpuscular volume ) determinationOrdered By: Finn Ferrell on 08-31-2024 MCV (RBC) [Entitic vol] 91.4 fL 80-94 [facility] Magnesiumon 08-31-2024 Magnesium [Mass/Vol] 2.2 mg/dL Normal 1.5-2.2 [facility] Comment on above: Performed By: #### L 501.9910 #### [facility] [address] [place], [address] Magnesium (Unsp spec) [Mass/ Vol]Ordered By: Finn Ferrell on 08-31-2024 Magnesium [Mass/Vol] 2.2 mg/dL 1.5-2.2 [facility] Magnesium measurement (mass/ volume)Ordered By: Finn Ferrell on 08-31-2024 Magnesium (Unsp spec) [Mass/Vol] 2.2 mg/dL 1.5-2.2 [facility] Mean corpuscular hemoglobin (MCH) determinationOrdered By: Finn Ferrell on 08-31-2024 MCH (RBC) [Entitic mass] 30.0 pg 27.0-32.0 [facility] Mean corpuscular hemoglobin concentration (MCHC) determinationOrdered By: Finn Ferrell on 08-31-2024 MCHC (RBC) [Mass/Vol] 32.9 g/dL 32-36 [facility] Mean platelet volume determi nationOrdered By: Finn Ferrell on 08-31-2024 Platelet mean volume (Bld) [Entitic vol] 9.8 fL 6.2-12.0 [facility] Monocyte percentageOrdered B y: Finn Ferrell on 08-31-2024 Monocytes/100 WBC (Bld) 5.7 % 0-10 [facility] Neutrophil percentageOrdered By: Finn Ferrell on 08-31-2024 Neutrophils/100 WBC (Bld) 72.9 % High 47-70 [facility] No Panel InformationOrdered By: Finn Ferrell on 08-31-2024 Unsaturated Iron Binding Capacity 210 ug/dL Low 228-428 [facility] Nucleated red blood cell per centageOrdered By: Finn Ferrell on 08-31-2024 Nucleated RBC/100 WBC (Bld) [Ratio] 0 % 0-5 [facility] PTH intactOrdered By: Finn cabrera on 08-31-2024 Parathyroid Hormone (Intact) 54 pg/mL - [facility] PTHINon 08-31-2024 PTH 54 pg/mL Normal [facility] Comment on above: Performed By: #### L 100.0500, L500.4050, L501.9520 #### [facility] [address] [place], [address] Phosphoruson 08-31-2024 Phosphate [Mass/Vol] 2.9 mg/dL Normal 2.7-4.5 [facility] Comment on above: Performed By: #### L 100.0500, L500.4050, L501.9520 #### [facility] [address] [place], [address] Platelet countOrdered By: Tanika Ferrell on 08-31-2024 Platelets (Bld) [#/Vol] 271 10*3/uL 150-450 [facility] Potassium (Unsp spec) [Mass/ Vol]Ordered By: Finn Ferrell on 08-31-2024 Potassium [Moles/Vol] 4.1 mmol/L 3.3-5.1 [facility] Potassium measurement (mass/ volume)Ordered By: Finn Ferrell on 08-31-2024 Potassium (Unsp spec) [Mass/Vol] 4.1 mmol/L 3.3-5.1 [facility] Protein+Creatinine Ratio,Uri neon 08-31-2024 PROT:CRE RATIO 77 mg/g CRE Normal 0-200 [facility] Comment on above: Performed By: #### L 100.0500, L500.4050, L501.9520 #### [facility] [address] [place], [address] Protein (U) [Mass/Vol] 9.8 mg/dL Normal 0.0-12.0 [facility] Comment on above: Performed By: #### L 100.0500, L500.4050, L501.9520 #### [facility] [address] [place], [address] Protein/Creatinine (U) [Mass ratio]Ordered By: Finn Ferrell on 08-31-2024 Urine Protein/Creatinine Ratio 77 mg/g CRE 0-200 [facility] RBC Auto (Bld) [#/Vol]Ordere d By: Finn Ferrell on 08-31-2024 RBC (Bld) [#/Vol] 4.66 10*6/uL 4.6-6.2 [facility] Random urine creatinine renu urement (mass/volume)Ordered By: Finn Ferrell on 08-31-2024 Creatinine Unsp time (U) [Mass/Vol] 126.00 mg/dL 39.00-259. 00 [facility] Screening total cholesterol/ high density lipoprotein (HDL) cholesterol ratioOrdered By: Finn Ferrell on 08-31-2024 Cholesterol.total/Chol esterol in HDL [Mass ratio] 3.83 {ratio} [facility] Serum creatinine measurement (mass/volume)Ordered By: Finn Ferrell on 08-31-2024 Creatinine [Mass/Vol] 1.59 mg/dL High 0.70-1.20 [facility] Serum globulin measurementOr dered By: Finn Ferrell on 08-31-2024 Globulin (S) [Mass/Vol] 3.1 g/dL 2.2-4.2 [facility] Serum glucose measurement (m ass/volume)Ordered By: Finn Ferrell on 08-31-2024 Glucose [Mass/Vol] 144 mg/dL High 70-99 [facility] Serum or plasma alanine newman otransferase (ALT) measurementOrdered By: Finn Ferrell on 08-31-2024 ALT [Catalytic activity/Vol] 22 U/L <47 [facility] Serum or plasma albumin renu urement (mass/volume)Ordered By: Finn Ferrell on 08-31-2024 Albumin [Mass/Vol] 4.3 g/dL 3.4-4.8 [facility] Serum or plasma albumin/glob ulin mass ratioOrdered By: Finn Ferrell on 08-31-2024 Albumin/Globulin [Mass ratio] 1.4 {ratio} 0.9-2.4 [facility] Serum or plasma alkaline christal sphatase measurementOrdered By: Finn Ferrell on 08-31-2024 ALP [Catalytic activity/Vol] 100 U/L 40-129 [facility] Serum or plasma calcium renu urement (mass/volume)Ordered By: Finn Ferrell on 08-31-2024 Calcium [Mass/Vol] 9.7 mg/dL 7.6-11.0 [facility] Serum or plasma cholesterol in HDL measurement (mass/volume)Ordered By: Finn Ferrell on 08-31-2024 Cholesterol in HDL [Mass/Vol] 55 mg/dL >40 [facility] Comment on above: National Cholesterol Education Program (NCEP) guidelines:<40 mg/dL: Low HDL-cholesterol (major risk factor for CHD)>= 60 mg/dL: High HDL-cholesterol (negative risk factor for CHD)HDL-cholesterol is affected by a number of factors, e.g. smoking, exercise, hormones, sex and age. Serum or plasma cholesterol measurement (mass/volume)Ordered By: Finn Ferrell on 08-31-2024 Cholesterol [Mass/Vol] 212 mg/dL High <201 [facility] Comment on above: Cholesterol level, D esirable <200 mg/dLBorderline high cholesterol 200-239 mg/dLHigh cholesterol >=240 mg/dLRecommendations of the NCEP Adult Treatment Panel for the following risk-cutoff thresholds for the [place] population. Serum or plasma ferritin ellen surement (mass/volume)Ordered By: Finn Ferrell on 08-31-2024 Ferritin [Mass/Vol] 473 ng/mL High 37-417 [facility] Serum or plasma iron saturat ion measurement (mass fraction)Ordered By: Finn Ferrell on 08-31-2024 Iron saturation [Mass fraction] 27.0 % 9-55 [facility] Serum or plasma urea nitroge n measurement (mass/volume)Ordered By: Finn Ferrell on 08-31-2024 Urea nitrogen [Mass/Vol] 22 mg/dL High 4-19 [facility] Serum phosphorus measurement Ordered By: Finn Ferrell on 08-31-2024 Phosphorus Level 2.9 mg/dL 2.7-4.5 [facility] Sodium levelOrdered By: Finn Ferrell on 08-31-2024 Sodium [Moles/Vol] 142 mmol/L 133-145 [facility] Total proteinOrdered By: Benedicto Ferrell on 08-31-2024 Protein [Mass/Vol] 7.3 g/dL 5.9-8.4 [facility] Triglycerides measurementOrd ered By: Finn Ferrell on 08-31-2024 Triglyceride [Mass/Vol] 222 mg/dL High <199 [facility] Comment on above: The drugs N-Acetylcy steine and Metamizole may falsely depress this assay. Normal range: <150 mg/dLBorderline High: 150-199 mg/dLHigh: 200-499 mg/dLVery High: >500 mg/dL Urine protein measurement (m ass/volume)Ordered By: Finn Ferrell on 08-31-2024 Protein (U) [Mass/Vol] 9.8 mg/dL 0.0-12.0 [facility] Urine protein/creatinine mas s ratioOrdered By: Finn Ferrell on 08-31-2024 Protein/Creatinine (U) [Mass ratio] 77 mg/g CRE 0-200 [facility] Vitamin D, 25-hydroxyOrdered By: Finn Ferrell on 08-31-2024 Vitamin D 25-Hydroxy 51.4 ng/mL 30-100 [facility] Comment on above: Vitamin D StatusDefi ciency: <20 ng/mL (50nmol/L)Insufficiency: 20-30 ng/mL (50-75 nmol/L)Sufficiency: 30-100 ng/mL (75-250 nmol/L)Toxicity: >100 ng/mL (>250 nmol/L) Vitamin D,25 Hydroxyon 08-31 Vitamin D 25-OH 51.4 ng/mL Normal 30-100 [facility] Comment on above: Result Comment: Purnima min D Status Deficiency: <20 ng/mL (50nmol/L) Insufficiency: 20-30 ng/mL (50-75 nmol/L) Sufficiency: 30-100 ng/mL (75-250 nmol/L) Toxicity: >100 ng/mL (>250 nmol/L) Performed By: #### L 501.9910 #### [facility] [address] [place], [address] White blood cell (WBC) count Ordered By: Finn Ferrell on 08-31-2024 WBC (Bld) [#/Vol] 7.5 10*3/uL 4.4-11.0 [facility] 08-30-2024 29 Addended by: DANISHA SPAIN on: 08/30/2024 11:32 AM Modules accepted: Orders [facility] 08-30-2024 36 Return phone call to Patient, Arsenior renewed, he had questions regarding his Echocardiogram [...] results with him when he returns. Normal [facility] 36 Pt requesting Imdur 60 mg to [facility] pharmacy and has more questions [facility] 36on 08-29-2024 36 Phone call [...] JET. I will review with Dr. Ortega. Normal [facility] 37on 08-24-2024 37 Increase Lopressor t o 50 mg twice day Monitor Blood pressure and heart rate, call if you get dizzy , If blood pressure below 100 systolic ( top number) call me. [phone] Normal [facility] Office Visiton 08-24-2024 Follow-up visit [id number] Shannon Olson 1955 M Date Provider Department [...] Alive Paternal Grandfather Father Brother Level of Service:39167 OR OFFICE/OUTPATIENT ESTABLISHED MOD MDM 30 MIN Reason for Visit and Comments: Follow-up [455969] Shortness of Breath [825398] Normal [facility] Progress Noteon 08-24-2024 Progress Note [facility] [address] [address] Dept: [phone] Dept Visit Type: Established NAME: Shannon Olson [...] Past Medical History: Diagnosis Date Angina pectoris ([facility]) Anxiety Arrhythmia A-fib Asthma CAD (coronary artery disease) Cerebral artery occlusion with cerebral infarction ([facility]) COPD (chronic obstructive pulmonary disease) ([facility]) Depression WATTS (dyspnea on exertion) Fatigue GERD (gastroesophageal reflux disease) History of cardioversion 05/07/2016 Successful conversion of a-fib to SR History of left heart catheterization 05/07/2016 60% stenosis right posterior descending, patent stents in prox, mid & distal RCA, patent stents in med LCx. Findings unchanged from previous study. 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) 12/2012 NSTEMI (non-ST elevated myocardial infarction) ([facility]) 05/2014 Obesity Old MD (myocardial infarction) HIPOLITO (obstructive sleep apnea) HIPOLITO on CPAP PAF (paroxysmal atrial fibrillation) ([facility]) Rheumatoid arthritis(714.0) ([facility]) ST segment elevation myocardial infarction (STEMI) of anterolateral wall, subsequent episode of care ([facility]) TIA (transient ischemic attack) Social History Tobacco Use Smoking status: Never Smokeless tobacco: Never Substance Use Topics Alcohol use: Not Currently Past Surgical History: Procedure Laterality Date CAPSULOTOMY, HAND 05/07/2016 CARDIAC CATHETERIZATION N/A 03/01/2023 Performed by Zoie Gonzales MD at [facility] Cardiac Cath/EP Lab CARDIAC PROCEDURE [...] CORONARY ANGIOPL (more content not included)... Normal [facility] Heart TransthoracicOrdere d By: Smita Montano on 08-24-2024 Ao Root Index 1.23 cm/m2 [employer] Work Phone: Aortic Arch 4 cm [facility] Work Phone: Aortic Root 3.2 cm [facility] [employer] Work Phone: Aortic Sinus Valsalva 3.2 cm [facility] [employer] Work Phone: Aortic Sinus Valsalva Index 1.23 cm/m2 [facility] [employer] Work Phone: Aortic valve Orifice area by US 3.8 cm2 [facility] [employer] Work Phone: Ascending Aorta 4.7 cm [facility] [employer] Work Phone: Ascending Aorta Index 1.81 cm/m2 [employer] Work Phone: AV Area by Peak Velocity 2.9 cm2 [facility] [employer] Work Phone: AV Peak Gradient 8 mmHg [facility] [employer] Work Phone: AV Peak Velocity 1.5 m/s [facility] [employer] Work Phone: AV Velocity Ratio 0.73 [facility] [employer] Work Phone: GRACE/BSA Peak Velocity 1.1 cm2/m2 [employer] Work Phone: E/E' Lateral 8 [facility] [employer] Work Phone: E/E' Ratio (Averaged) 8.57 [employer] Work Phone: E/E' Septal 9.14 [facility] [employer] Work Phone: Est. RA Pressure 8 mmHg [facility] [employer] Work Phone: Fractional Shortening 2D 18 % 28 - 44 % [facility] [employer] Work Phone: Interpretation and review of laboratory results Abnormal [facility] [employer] Work Phone: IVC Diameter 2.4 cm [facility] [employer] Work Phone: IVSd 1.5 cm Abnormal 0.6 - 1.0 cm [facility] [employer] Work Phone: LA Diameter 5.3 cm [facility] [employer] Work Phone: LA Size Index 2.04 cm/m2 [facility] [employer] Work Phone: LA Volume 2C 75 mL Abnormal 18 - 58 mL [facility] [employer] Work Phone: LA Volume 4C 84 mL Abnormal 18 - 58 mL [facility] [employer] Work Phone: LA Volume A/L 87 mL [facility] Work Phone: LA Volume BP 82 mL Abnormal 18 - 58 mL [facility] [employer] Work Phone: LA Volume Index 2C 29 mL/m2 16 - 34 mL/m2 [facility] [employer] Work Phone: LA Volume Index 4C 32 mL/m2 16 - 34 mL/m2 [facility] [employer] Work Phone: LA Volume Index A/L 33 mL/m2 16 - 34 mL/m2 [facility] [employer] Work Phone: LA Volume Index BP 32 ml/m2 16 - 34 ml/m2 [facility] [employer] Work Phone: LA/AO Root Ratio 1.66 [facility] [employer] Work Phone: Left ventricular Ejection fraction by US.2D+Calculated by biplane method of disks 38 % Abnormal 55 - 100 % [facility] [employer] Work Phone: LV E' Lateral Velocity 8 cm/s [facility] Work Phone: LV E' Septal Velocity 7 cm/s [facility] [employer] Work Phone: LV EDV A2C 225 mL [facility] [employer] Work Phone: LV EDV A4C 263 mL [facility] [employer] Work Phone: LV EDV BP 252 mL Abnormal 67 - 155 mL [facility] [employer] Work Phone: LV EDV Index A2C 87 mL/m2 [facility] [employer] Work Phone: LV EDV Index A4C 101 mL/m2 [facility] [employer] Work Phone: LV EDV Index BP 97 mL/m2 [facility] [employer] Work Phone: LV Ejection Fraction A2C 35 % [facility] [employer] Work Phone: LV Ejection Fraction A4C 36 % [facility] [employer] Work Phone: LV ESV A2C 147 mL [facility] [employer] Work Phone: LV ESV A4C 167 mL [employer] Work Phone: LV ESV BP 156 mL Abnormal 22 - 58 mL [employer] Work Phone: LV ESV Index A2C 57 mL/m2 [employer] Work Phone: LV ESV Index A4C 64 mL/m2 [employer] Work Phone: LV ESV Index BP 60 mL/m2 [employer] Work Phone: LV Mass 2D 452.4 g Abnormal 88 - 224 g [employer] Work Phone: LV Mass 2D Index 174 g/m2 Abnormal 49 - 115 g/m2 [employer] Work Phone: LV RWT Ratio 0.39 [employer] Work Phone: LVIDd 6.6 cm Abnormal 4.2 - 5.9 cm [employer] Work Phone: LVIDd Index 2.54 cm/m2 [employer] Work Phone: LVIDs 5.4 cm [employer] Work Phone: LVIDs Index 2.08 cm/m2 [employer] Work Phone: LVOT Cardiac Output 4.7 liter/mi nu te [employer] Work Phone: LVOT Diameter 2.2 cm [employer] Work Phone: LVOT Mean Gradient 3 mmHg [employer] Work Phone: LVOT Peak Gradient 5 mmHg [employer] Work Phone: LVOT Peak Velocity 1.1 m/s [employer] Work Phone: LVOT Stroke Volume Index 33.5 mL/m2 [employer] Work Phone: LVOT SV 87 ml [employer] Work Phone: LVOT VTI 22.9 cm [employer] Work Phone: LVPWd 1.3 cm Abnormal 0.6 - 1.0 cm [employer] Work Phone: MV A Velocity 0.76 m/s [facility] Work Phone: MV E Velocity 0.64 m/s [facility] [employer] Work Phone: MV E Wave Deceleration Time 291.3 ms [facility] [employer] Work Phone: MV E/A 0.84 [facility] [employer] Phone: Pulmonary Artery EDP 4 mmHg [facility] [employer] Work Phone: RA Area 4C 50.7 mL [facility] [employer] Work Phone: RV Basal Dimension 5.1 cm [facility] [employer] Work Phone: RV Free Wall Peak S' 18 cm/s [facility] [employer] Work Phone: RV Longitudinal Dimension 7.1 cm [facility] [employer] Work Phone: RV Mid Dimension 3.6 cm [facility] [employer] Phone: Sinotubular Junction 2.6 cm [facility] [employer] Work Phone: TAPSE 2.9 cm 1.7 cm [facility] [employer] Work Phone: [facility] Phone: US Heart Transthoracicon Left Ventricle: Left [...] and 500 mg in the evening. Normal [facility] Office Visiton 07-20-2024 Follow-up visit [id number] Shannon Olson 1955 M Date Provider Department Center 07/20/2024 [id number] SPAIN SH[facility] HARIKA SHMGCV 95 Ar Family History Problem Relation Age of Onset Diabetes Paternal Grandmother Diabetes Maternal Grandfather Cancer Sister Hypertension Mother Diabetes Sister Diabetes Paternal Grandfather Heart disease Paternal Grandmother Heart disease Paternal Grandfather Cancer Father Diabetes Brother Family Status - Relation Status Age at Paternal Grandmother Maternal Grandfather Sister Mother Alive Paternal Grandfather Father Brother Level of Service:97152 OR OFFICE/OUTPATIENT ESTABLISHED MOD MDM 30 MIN Reason for Visit and Comments: Coronary Artery Disease [187] Normal [facility] Progress Noteon 07-20-2024 Progress Note [facility] [address] [facility] [address] Dept: [phone] Dept Visit Type: Established NAME: Shannon Olson [...] Past Medical History: Diagnosis Date Angina pectoris ([facility]) Anxiety Arrhythmia A-fib Asthma CAD (coronary artery disease) Cerebral artery occlusion with cerebral infarction ([facility]) COPD (chronic obstructive pulmonary disease) ([facility]) Depression WATTS (dyspnea on exertion) Fatigue GERD (gastroesophageal reflux disease) History of cardioversion 05/07/2016 Successful conversion of a-fib to SR History of left heart catheterization 05/07/2016 60% stenosis right posterior descending, patent stents in prox, mid & distal RCA, patent stents in med LCx. Findings unchanged from previous study. 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) ([facility]) 12/2012 NSTEMI (non-ST elevated myocardial infarction) ([facility]) ([facility]) 05/2014 Obesity Old MD (myocardial infarction) HIPOLITO (obstructive sleep apnea) HIPOLITO on CPAP PAF (paroxysmal atrial fibrillation) ([facility]) Rheumatoid arthritis(714.0) ([facility]) ST segment elevation myocardial infarction (STEMI) of anterolateral wall, subsequent episode of care ([facility]) ([facility]) TIA (transient ischemic attack) Social History Tobacco Use Smoking status: Never Smokeless tobacco: Never Substance Use Topics Alcohol use: Not Currently Past Surgical History: Procedure Laterality Date CAPSULOTOMY, HAND 05/07/2016 CARDIAC CATHETERIZATION N/A 03/01/2023 Performed by Zoie Gonzales MD at [facility] Cardiac Cath/EP Lab CARDIAC PROCEDURE [...] CORONARY ANGIOPLASTY WITH STENT PLACEMENT Left 12/01/2021 APPLICATION SUPPORT LEAD/PCI to prox RCA CORONARY ANGIOPLASTY WITH STENT (more content not included)... [facility] 36on 07-13-2024 36 Patient cancelled hi s appt today, due to bad weather. He is feeling a little better. Has used SL NTG a few times. He is R/S for next week. [facility] 36 Name of Caller: Shannon Contact Reason for Appointment: Cancel and R/S 07/13/2024 at 130pm due to weather Office Name: [facility] [address] Arch Card Medication Refills need, if any: no Medication Name: no [facility] 36on 07-06-2024 36 Phone call to merle laws , He is having increased angina, Agreeable to OV today at 2:30 pm. [facility] 36 Patient called into office stating he [...] to come in for appt if appropriate. 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 [facility] 36 Patient c/o CP walki ng around the house today. nitroglycerin has eased some of the pain, some SOB when he walks. Requesting an appt today. [facility] 37on 07-06-2024 37 Increase Norvasc ( Amlodipine ) to 5 mg twice a day Start Taking Isosorbide Mononitrate 2 tablets together in the am Start Ranexa ( Ranolazine ) 500 mg twice day 4. Please check if you are taking Carafate 4 times a day ( From GI doctor) 5. Use SL NTG prior to going outside or doing chores. 7 [facility] Office Visiton 07-06-2024 Follow-up visit [id number] Shannon Olson 1955 M Date Provider Department Center 07/06/2024 [id number] SPAIN SH[facility] ACH HARIKA SHMGCV 95 Ar Family History Problem Relation Age of Onset Diabetes Paternal Grandmother Diabetes Maternal Grandfather Cancer Sister Hypertension Mother Diabetes Sister Diabetes Paternal Grandfather Heart disease Paternal Grandmother Heart disease Paternal Grandfather Cancer Father Diabetes Brother Family Status - Relation Status Age at Paternal Grandmother Maternal Grandfather Sister Mother Alive Paternal Grandfather Father Brother Level of Service:35119 OR OFFICE/OUTPATIENT ESTABLISHED MOD MDM 30 MIN Reason for Visit and Comments: Follow-up [492718] Chest Pain [867656] Dizziness [866512] Normal [facility] Progress Noteon 07-06-2024 Progress Note [facility] [address] [facility] [address] Dept: [phone] Dept Visit Type: Established NAME: Shannon Olson [...] Past Medical History: Diagnosis Date Angina pectoris ([facility]) Anxiety Arrhythmia A-fib Asthma CAD (coronary artery disease) Cerebral artery occlusion with cerebral infarction ([facility]) COPD (chronic obstructive pulmonary disease) ([facility]) Depression WATTS (dyspnea on exertion) Fatigue GERD (gastroesophageal reflux disease) History of cardioversion 05/07/2016 Successful conversion of a-fib to SR History of left heart catheterization 05/07/2016 60% stenosis right posterior descending, patent stents in prox, mid & distal RCA, patent stents in med LCx. Findings unchanged from previous study. 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) ([facility]) 12/2012 NSTEMI (non-ST elevated myocardial infarction) ([facility]) ([facility]) 05/2014 Obesity Old MD (myocardial infarction) HIPOLITO (obstructive sleep apnea) HIPOLITO on CPAP PAF (paroxysmal atrial fibrillation) ([facility]) Rheumatoid arthritis(714.0) ([facility]) ST segment elevation myocardial infarction (STEMI) of anterolateral wall, subsequent episode of care ([facility]) ([facility]) TIA (transient ischemic attack) Social History Tobacco Use Smoking status: Never Smokeless tobacco: Never Substance Use Topics Alcohol use: Not Currently Past Surgical History: Procedure Laterality Date CAPSULOTOMY, HAND 05/07/2016 CARDIAC CATHETERIZATION N/A 03/01/2023 Performed by Zoie Gonzales MD at [facility] Cardiac Cath/EP Lab CARDIAC PROCEDURE [...] PLACEMENT Le (more content not included)... Normal [facility] 12 Lead EKGon 06-20-2024 12 Lead EKG [facility] Cardi[facility] Services [address] [place] [address] 12 Lead EKG 06/20/24 0759 MR#: [id number] Acct: [id number] Name: SHANNON OLSON Rep #: [id number] : 1955 68 From: Juan Sams MD [...] Abnormal ECG Confirmed by LATRELL ALVARADO, ROCÍO ([id number]), machine clerical verifier GIA LING ([id number]) on 06/21/2024 6:31:28 AM Referred By: JG DENT Confirmed By: ROCÍO SAMS MD 06/21/24 0631 Date Juan Sams MD CC: Dr. Finn Ferrell MD; JG DENT Signed Normal [facility] Albumin to globulin ratioon 06-20-2024 Albumin/Globulin [Mass ratio] 0.9 {ratio} 0.9-2.4 [facility] Bilirubin, totalon Bilirubin [Mass/Vol] 1.10 mg/dL High 0.20-1.00 [facility] Comment on above: For patients on eltr ombopag therapy, use of Dimension [place] TBIL is not recommended. Blood urea nitrogen (BUN)/cr eatinine ratioon 06-20-2024 Urea nitrogen/Creatinine [Mass ratio] 16.4 mg/mg 10-20 [facility] CBC-Complete Blood Cnt No Di ffon 06-20-2024 Erythrocyte distribution width (RBC) [Ratio] 14.7 % High 11.6-14.6 [facility] Comment on above: Performed By: #### L 100.0500, L500.4050, L501.9520 #### [facility] [address] [place], [address] Hematocrit (Bld) [Volume fraction] 43.0 % Normal 40-54 [facility] Comment on above: Performed By: #### L 100.0500, L500.4050, L501.9520 #### [facility] [address] [place], [address] Hemoglobin (Bld) [Mass/Vol] 13.6 g/dL Normal 13.0-16.5 [facility] Comment on above: Performed By: #### L 100.0500, L500.4050, L501.9520 #### [facility] [address] [place], [address] MCH (RBC) [Entitic mass] 29.1 pg Normal 27.0-32.0 [facility] Comment on above: Performed By: #### L 100.0500, L500.4050, L501.9520 #### [facility] [address] [place], [address] MCHC (RBC) [Mass/Vol] 31.6 g/dL Low 32-36 [facility] Comment on above: Performed By: #### L 100.0500, L500.4050, L501.9520 #### [facility] [address] [place], [address] MCV (RBC) [Entitic vol] 91.9 fL Normal 80-94 [facility] Comment on above: Performed By: #### L 100.0500, L500.4050, L501.9520 #### [facility] [address] [place], [address] Platelet mean volume (Bld) [Entitic vol] 9.2 fL Normal 6.2-12.0 [facility] Comment on above: Performed By: #### L 100.0500, L500.4050, L501.9520 #### [facility] [address] [place], [address] Platelets (Bld) [#/Vol] 244 10*3/uL Normal 150-450 [facility] Comment on above: Performed By: #### L 100.0500, L500.4050, L501.9520 #### [facility] [address] [place], [address] RBC (Bld) [#/Vol] 4.68 10*6/uL Normal 4.6-6.2 [facility] Comment on above: Performed By: #### L 100.0500, L500.4050, L501.9520 #### [facility] [address] [place], [address] RDW SD 49.7 fl High 35.1-43.9 [facility] Comment on above: Performed By: #### L 100.0500, L500.4050, L501.9520 #### [facility] [address] [place], [address] WBC (Bld) [#/Vol] 7.2 10*3/uL Normal 4.4-11.0 [facility] Comment on above: Performed By: #### L 100.0500, L500.4050, L501.9520 #### [facility] [address] [place], [address] Carbon dioxide measurementon 06-20-2024 CO2 [Moles/Vol] 26.0 mmol/L 21.0-32.0 [facility] Chest 1 Viewon 06-20-2024 Chest 1 View [facility] Imaging Services [address] [place] [address] Chest 1 View MR#: [id number] Acct: [id number] Name: SHANNON OLSON Rep #: [id number] : 1955 M 68 From: Dom Echols PCP: Dr. Finn Ferrell MD Status: REG CLI Study: Chest 1 View Date of Exam: 06/20/24 Exam# [id number] Ordering Dr: JG DENT PROCEDURE: CHEST 1 [...] aorta. No evidence of cardiomegaly. Reading Location: [address] CC: Dr. Finn Ferrell MD; JG DENT Senior [employer]: Signed Normal [facility] Chloride measurementon 06-20 Chloride [Moles/Vol] 107 mmol/L 98-107 [facility] Comprehensive Metabolic Prof ilon 06-20-2024 Albumin [Mass/Vol] 3.6 g/dL Normal 3.2-5.0 [facility] Comment on above: Performed By: #### L 100.0500, L500.4050, L501.9520 #### [facility] [address] [place], [address] Albumin/Globulin [Mass ratio] 0.9 {ratio} Normal 0.9-2.4 [facility] Comment on above: Performed By: #### L 100.0500, L500.4050, L501.9520 #### [facility] [address] [place], [address] ALK P 105 U/L Normal 45-117 [facility] Comment on above: Performed By: #### L 100.0500, L500.4050, L501.9520 #### [facility] [address] [place], [address] ALT [Catalytic activity/Vol] 37 U/L Normal 16-61 [facility] Comment on above: Performed By: #### L 100.0500, L500.4050, L501.9520 #### [facility] [address] [place], [address] AST [Catalytic activity/Vol] 18 U/L Normal 15-37 [facility] Comment on above: Performed By: #### L 100.0500, L500.4050, L501.9520 #### [facility] [address] [place], [address] Bilirubin [Mass/Vol] 1.10 mg/dL High 0.20-1.00 [facility] Comment on above: Result Comment: For patients on eltrombopag therapy, use of Dimension [place] TBIL is not recommended. Performed By: #### L 100.0500, L500.4050, L501.9520 #### [facility] [address] [place], [address] BUN/CRE 16.4 RATIO Normal 10-20 [facility] Comment on above: Performed By: #### L 100.0500, L500.4050, L501.9520 #### [facility] [address] [place], [address] CA,Total 9.9 mg/dL Normal 8.5-10.1 [facility] Comment on above: Performed By: #### L 100.0500, L500.4050, L501.9520 #### [facility] [address] [place], [address] Chloride [Moles/Vol] 107 mmol/L Normal 98-107 [facility] Comment on above: Performed By: #### L 100.0500, L500.4050, L501.9520 #### [facility] [address] [place], [address] CO2 [Moles/Vol] 26.0 mmol/L Normal 21.0-32.0 [facility] Comment on above: Performed By: #### L 100.0500, L500.4050, L501.9520 #### [facility] [address] [place], [address] Creatinine [Mass/Vol] 1.28 mg/dL Normal 0.70-1.30 [facility] Comment on above: Result Comment: The validity of the calculated GFR GFRAA in patients over 70 years has not been determined. Clinical correlation is essential. Performed By: #### L 100.0500, L500.4050, L501.9520 #### [facility] [address] [place], [address] EST GFR - AA 72 mL/min Normal >60 [facility] Comment on above: Result Comment: Afri can [place] GFR Calc Performed By: #### L 100.0500, L500.4050, L501.9520 #### [facility] [address] [place], [address] GAP 7 Normal 5-15 [facility] Comment on above: Performed By: #### L 100.0500, L500.4050, L501.9520 #### [facility] [address] [place], [address] GFR/1.73 sq M.predicted among non-blacks MDRD (S/P/Bld) [Vol rate/Area] 59 mL/min/{1.73_m2} Low >60 [facility] Comment on above: Result Comment: Non- GFR Calc Performed By: #### L 100.0500, L500.4050, L501.9520 #### [facility] [address] [place], [address] Globulin (S) [Mass/Vol] 4.0 g/dL Normal 2.2-4.2 [facility] Comment on above: Performed By: #### L 100.0500, L500.4050, L501.9520 #### [facility] [address] [place], [address] Glucose [Mass/Vol] 136 mg/dL High 74-106 [facility] Comment on above: Result Comment: Fast ing Glucose result greater than or equal to 126 mg/dL suggests DIABETES MELLITUS per A.D.A. criteria. Performed By: #### L 100.0500, L500.4050, L501.9520 #### [facility] [address] [place], [address] Potassium [Moles/Vol] 3.9 mmol/L Normal 3.5-5.1 [facility] Comment on above: Performed By: #### L 100.0500, L500.4050, L501.9520 #### [facility] [address] [place], [address] Sodium [Moles/Vol] 140 mmol/L Normal 136-145 [facility] Comment on above: Performed By: #### L 100.0500, L500.4050, L501.9520 #### [facility] [address] [place], [address] T PROT 7.6 g/dL Normal 6.4-8.2 [facility] Comment on above: Performed By: #### L 100.0500, L500.4050, L501.9520 #### [facility] [address] [place], [address] Urea nitrogen [Mass/Vol] 21 mg/dL High 7-18 [facility] Comment on above: Performed By: #### L 100.0500, L500.4050, L501.9520 #### [facility] [address] [place], [address] Erythrocyte distribution wid th (RBC) [Ratio]on 06-20-2024 Erythrocyte distribution width (RBC) [Entitic vol] 49.7 fL High 35.1-43.9 [facility] Erythrocyte distribution wid th ratioon 06-20-2024 Erythrocyte distribution width (RBC) [Ratio] 14.7 % High 11.6-14.6 [facility] Estimated glomerular filtrat ion rate (GFR) Americanon 06-20-2024 Estimated GFR (MDRD) Amer 72 mL/min >60 [facility] Comment on above: GFR Calc Glomerular filtration rate ( GFR) estimationon 06-20-2024 Estimated GFR (MDRD) Non-Af Amer 59 mL/min Low >60 [facility] Comment on above: Non- GFR Calc Glucose measurementon 2024 Glucose [Mass/Vol] 136 mg/dL High 74-106 [facility] Comment on above: Fasting Glucose resu lt greater than or equal to 126 mg/dL suggests DIABETES MELLITUS per A.D.A. criteria. Hematocrit Auto (Bld) [Volum e fraction]on 06-20-2024 Hematocrit (Bld) [Volume fraction] 43.0 % 40-54 [facility] Hemoglobin measurementon Hemoglobin (Bld) [Mass/Vol] 13.6 g/dL 13.0-16.5 [facility] - Chemistry and C hemistry - challengeon 06-20-2024 AST [Catalytic activity/Vol] 18 U/L 15-37 [facility] MCV (mean corpuscular volume ) determinationon 06-20-2024 MCV (RBC) [Entitic vol] 91.9 fL 80-94 [facility] Mean corpuscular hemoglobin (MCH) determinationon 06-20-2024 MCH (RBC) [Entitic mass] 29.1 pg 27.0-32.0 [facility] Mean corpuscular hemoglobin concentration (MCHC) determinationon 06-20-2024 MCHC (RBC) [Mass/Vol] 31.6 g/dL Low 32-36 [facility] Mean platelet volume determi nationon 06-20-2024 Platelet mean volume (Bld) [Entitic vol] 9.2 fL 6.2-12.0 [facility] Platelet counton 06-20-2024 Platelets (Bld) [#/Vol] 244 10*3/uL 150-450 [facility] Potassium measurementon 05-25 Potassium [Moles/Vol] 3.9 mmol/L 3.5-5.1 [facility] RBC Auto (Bld) [#/Vol]on RBC (Bld) [#/Vol] 4.68 10*6/uL 4.6-6.2 [facility] Serum anion gap measuremento n 06-20-2024 Anion gap [Moles/Vol] 7 mmol/L 5-15 [facility] Serum globulin measurementon 06-20-2024 Globulin (S) [Mass/Vol] 4.0 g/dL 2.2-4.2 [facility] Serum or plasma alanine newman otransferase (ALT) measurementon 06-20-2024 ALT [Catalytic activity/Vol] 37 U/L 16-61 [facility] Serum or plasma albumin renu urement (mass/volume)on 06-20-2024 Albumin [Mass/Vol] 3.6 g/dL 3.2-5.0 [facility] Serum or plasma alkaline christal sphatase measurementon 06-20-2024 ALP [Catalytic activity/Vol] 105 U/L 45-117 [facility] Serum or plasma calcium renu urement (mass/volume)on 06-20-2024 Calcium [Mass/Vol] 9.9 mg/dL 8.5-10.1 [facility] Serum or plasma creatinine m easurement (mass/volume)on 06-20-2024 Creatinine [Mass/Vol] 1.28 mg/dL 0.70-1.30 [facility] Comment on above: The validity of the calculated GFR & GFRAA in patients over 70 years has not been determined. Clinical correlation is essential. Serum or plasma urea nitroge n measurement (mass/volume)on 06-20-2024 Urea nitrogen [Mass/Vol] 21 mg/dL High 7-18 [facility] Sodium levelon 06-20-2024 Sodium [Moles/Vol] 140 mmol/L 136-145 [facility] TSH Qnon 06-20-2024 Thyroid Stimulating Hormone (TSH) 1.220 uIU/mL 0.358-3.74 0 [facility] Thyroid Stim Hormone (TSH)on 06-20-2024 TSH 1.220 uIU/mL Normal 0.358-3.74 0 [facility] Comment on above: Performed By: #### L 100.0500, L500.4050, L501.9520 #### [facility] [address] [place], [place], [id number] Total proteinon 06-20-2024 Protein [Mass/Vol] 7.6 g/dL 6.4-8.2 [facility] White blood cell (WBC) count on 06-20-2024 WBC (Bld) [#/Vol] 7.2 10*3/uL 4.4-11.0 [facility] 36on 06-06-2024 36 For amio refill, pat ient needs: CMP, TSH, CXR, and EKG Recommend CBC give OAC and antiplatelet. [facility] 36 Will route all cardi ac medications to [facility] pharmacy. [facility] Dr. Ortega 02/01/24. Labs completed by PCP office 12/01/23. 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 He used to get medications through our pharmacy and he is wondering if he can get all his meds changed to get through us. [facility] 36on 05-22-2024 36 I spoke w/ pt, confi rmed RX request. [facility] 36 Patient requesting r efill Imdur (isosorbide) 60mg metoprolol tartrate (Lopressor) 25 MG tablet Main pharm verified [facility] 36on 05-03-[address] Ortega 02/01/24. Pended rx, Kayla Spain APRN to sign. [facility] 36 Requesting refill amLODIPine (Norvasc) 5 MG tablet [facility] verified [facility] 36on 04-28-2024 36 [facility] of rosuvastatin 40 mg daily. [facility] Ortega 02/01/24. Lipid panel completed 02/19/23. Pended rx, Rika Jenkins APRN to sign. Normal [facility] CBC W/Diff, Automatedon 12-0 Absolute Lymph 1.33 X10 3/uL Normal 0.83-4.51 [facility] Comment on above: Order Comment: Order Date: 04/28/24Order Info: [id number] - CBCD Performed By: #### L 501.0900 #### [facility] [place], [address] Absolute Neut 11.5 X10 3/uL High 2.0-7.7 [facility] Comment on above: Order Comment: Order Date: 04/28/24Order Info: [id number] - CBCD Performed By: #### L 501.0900 #### [facility] [address] [place], [address] Basophils/100 WBC (Bld) 0.4 % Normal 0-1 [facility] Comment on above: Order Comment: Order Date: 04/28/24Order Info: [id number] - CBCD Performed By: #### L 501.0900 #### [facility] [address] [place], [address] Eosinophils/100 WBC (Bld) 0.0 % Normal 0-5 [facility] Comment on above: Order Comment: Order Date: 04/28/24Order Info: [id number] - CBCD Performed By: #### L 501.0900 #### [facility] [address] [place], [address] Erythrocyte distribution width (RBC) [Ratio] 14.9 % High 11.6-14.6 [facility] Comment on above: Order Comment: Order Date: 04/28/24Order Info: [id number] - CBCD Performed By: #### L 501.0900 #### [facility] [address] [place], [address] Hematocrit (Bld) [Volume fraction] 41.7 % Normal 40-54 [facility] Comment on above: Order Comment: Order Date: 04/28/24Order Info: [id number] - CBCD Performed By: #### L 501.0900 #### [facility] [address] [place], [address] Hemoglobin (Bld) [Mass/Vol] 13.4 g/dL Normal 13.0-16.5 [facility] Comment on above: Order Comment: Order Date: 04/28/24Order Info: 0184-1 - CBCD Performed By: #### L 501.0900 #### [facility] [address] [place], [address] IG% 1.700 High 0.0-0.9 [facility] Comment on above: Order Comment: Order Date: 04/28/24Order Info: 183- - CBCD Result Comment: IG% - Immature Granulocytes (promyelocytes, myelocytes and metamyelocytes) > 1% indicates that a LEFT SHIFT is Present. Performed By: #### L 501.0900 #### [facility] [address] [place], [address] Lymphocytes/100 WBC (Bld) 9.8 % Low 19-41 [facility] Comment on above: Order Comment: Order Date: 04/28/24Order Info: 183-05 - CBCD Performed By: #### L 501.0900 #### [facility] [address] [place], [address] MCH (RBC) [Entitic mass] 29.1 pg Normal 27.0-32.0 [facility] Comment on above: Order Comment: Order Date: 04/28/24Order Info: 183- - CBCD Performed By: #### L 501.0900 #### [facility] [address] [place], [address] MCHC (RBC) [Mass/Vol] 32.1 g/dL Normal 32-36 [facility] Comment on above: Order Comment: Order Date: 04/28/24Order Info: 183- - CBCD Performed By: #### L 501.0900 #### [facility] [address] [place], [address] MCV (RBC) [Entitic vol] 90.5 fL Normal 80-94 [facility] Comment on above: Order Comment: Order Date: 04/28/24Order Info: 183- - CBCD Performed By: #### L 501.0900 #### [facility] [address] [place], [address] Monocytes/100 WBC (Bld) 3.9 % Normal 0-10 [facility] Comment on above: Order Comment: Order Date: 04/28/24Order Info: 0184-1 - CBCD Performed By: #### L 501.0900 #### [facility] [address] [place], [address] Neutrophils/100 WBC (Bld) 84.2 % High 47-70 [facility] Comment on above: Order Comment: Order Date: 04/28/24Order Info: 018- - CBCD Performed By: #### L 501.0900 #### [facility] [address] [place], [address] Nucleated RBC (Bld) [#/Vol] 0 10*3/uL Normal 0-5 [facility] Comment on above: Order Comment: Order Date: 04/28/24Order Info: 018- - CBCD Performed By: #### L 501.0900 #### [facility] [address] [place], [address] Platelet mean volume (Bld) [Entitic vol] 9.6 fL Normal 6.2-12.0 [facility] Comment on above: Order Comment: Order Date: 04/28/24Order Info: 018-1 - CBCD Performed By: #### L 501.0900 #### [facility] [address] [place], [address] Platelets (Bld) [#/Vol] 283 10*3/uL Normal 150-450 [facility] Comment on above: Order Comment: Order Date: 04/28/24Order Info: 0184-1 - CBCD Performed By: #### L 501.0900 #### [facility] [address] [place], [address] RBC (Bld) [#/Vol] 4.61 10*6/uL Normal 4.6-6.2 [facility] Comment on above: Order Comment: Order Date: 04/28/24Order Info: 0184- - CBCD Performed By: #### L 501.0900 #### [facility] [address] [place], [address] RDW SD 48.7 fl High 35.1-43.9 [facility] Comment on above: Order Comment: Order Date: 04/28/24Order Info: 018- - CBCD Performed By: #### L 501.0900 #### [facility] [address] [place], [address] WBC (Bld) [#/Vol] 13.6 10*3/uL High 4.4-11.0 [facility] Comment on above: Order Comment: Order Date: 04/28/24Order Info: 018- - CBCD Performed By: #### L 501.0900 #### [facility] [address] [place], [address] Comprehensive Metabolic Prof ilon 04-28-2024 Albumin [Mass/Vol] 3.7 g/dL Normal 3.2-5.0 [facility] Comment on above: Order Comment: Order Date: 03/13/25 Order Info: 0786-1 - CMP Order Info: [id number] - IBC Performed By: #### L 506.0200, L400.0001, L506.1001, L503.0106 #### [facility] [address] [place], [address] Albumin/Globulin [Mass ratio] 1.0 {ratio} Normal 0.9-2.4 [facility] Comment on above: Order Comment: Order Date: 03/13/25 Order Info: 0786-1 - CMP Order Info: 01882-9 - IBC Performed By: #### L 506.0200, L400.0001, L506.1001, L503.0106 #### [facility] [address] [place], [address] ALK P 101 U/L Normal 45-117 [facility] Comment on above: Order Comment: Order Date: 03/13/25 Order Info: 0786-1 - CMP Order Info: 51919-1 - IBC Performed By: #### L 506.0200, L400.0001, L506.1001, L503.0106 #### [facility] [address] [place], [address] ALT [Catalytic activity/Vol] 40 U/L Normal 16-61 [facility] Comment on above: Order Comment: Order Date: 03/13/25 Order Info: 0786- - CMP Order Info: [id number] - IBC Performed By: #### L 506.0200, L400.0001, L506.1001, L503.0106 #### [facility] [address] [place], [address] AST [Catalytic activity/Vol] 12 U/L Low 15-37 [facility] Comment on above: Order Comment: Order Date: 03/13/25 Order Info: 0786-1 - CMP Order Info: 56612-2 - IBC Performed By: #### L 506.0200, L400.0001, L506.1001, L503.0106 #### [facility] [address] [place], [address] Bilirubin [Mass/Vol] 1.30 mg/dL High 0.20-1.00 [facility] Comment on above: Order Comment: Order Date: 03/13/25 Order Info: 0786-1 - CMP Order Info: [id number] - IBC Result Comment: For patients on eltrombopag therapy, use of Dimension [place] TBIL is not recommended. Performed By: #### L 506.0200, L400.0001, L506.1001, L503.0106 #### [facility] [address] [place], [address] BUN/CRE 20.4 RATIO High 10-20 [facility] Comment on above: Order Comment: Order Date: 03/13/25 Order Info: 0786-1 - CMP Order Info: [id number] - IBC Performed By: #### L 506.0200, L400.0001, L506.1001, L503.0106 #### [facility] [address] [place], [address] CA,Total 9.5 mg/dL Normal 8.5-10.1 [facility] Comment on above: Order Comment: Order Date: 03/13/25 Order Info: 0786-1 - CMP Order Info: 88089-6 - IBC Performed By: #### L 506.0200, L400.0001, L506.1001, L503.0106 #### [facility] [address] [place], [address] Chloride [Moles/Vol] 105 mmol/L Normal 98-107 [facility] Comment on above: Order Comment: Order Date: 03/13/25 Order Info: 0786-1 - CMP Order Info: 11449-0 - IBC Performed By: #### L 506.0200, L400.0001, L506.1001, L503.0106 #### [facility] [address] [place], [address] CO2 [Moles/Vol] 26.0 mmol/L Normal 21.0-32.0 [facility] Comment on above: Order Comment: Order Date: 03/13/25 Order Info: 0786-1 - CMP Order Info: [id number] - IBC Performed By: #### L 506.0200, L400.0001, L506.1001, L503.0106 #### [facility] [address] [place], [address] Creatinine [Mass/Vol] 1.52 mg/dL High 0.70-1.30 [facility] Comment on above: Order Comment: Order Date: 03/13/25 Order Info: 0786-1 - CMP Order Info: [id number] - IBC Result Comment: The validity of the calculated GFR GFRAA in patients over 70 years has not been determined. Clinical correlation is essential. Performed By: #### L 506.0200, L400.0001, L506.1001, L503.0106 #### [facility] [address] [place], [address] EST GFR - AA 59 mL/min Low >60 [facility] Comment on above: Order Comment: Order Date: 03/13/25 Order Info: 0786-1 - [facility] Order Info: [id number] - IBC Result Comment: Afri can [place] GFR Calc Performed By: #### L 506.0200, L400.0001, L506.1001, L503.0106 #### [facility] [address] [place], [address] GAP 8 Normal 5-15 [facility] Comment on above: Order Comment: Order Date: 03/13/25 Order Info: 0786-1 - [facility] Order Info: [id number] - IBC Performed By: #### L 506.0200, L400.0001, L506.1001, L503.0106 #### [facility] [address] [place], [address] GFR/1.73 sq M.predicted among non-blacks MDRD (S/P/Bld) [Vol rate/Area] 49 mL/min/{1.73_m2} Low >60 [facility] Comment on above: Order Comment: Order Date: 03/13/25 Order Info: 0786-1 - [facility] Order Info: [id number] - IBC Result Comment: Non- GFR Calc Performed By: #### L 506.0200, L400.0001, L506.1001, L503.0106 #### [facility] [address] [place], [address] Globulin (S) [Mass/Vol] 3.7 g/dL Normal 2.2-4.2 [facility] Comment on above: Order Comment: Order Date: 03/13/25 Order Info: 0786-1 - CMP Order Info: 82794-6 - IBC Performed By: #### L 506.0200, L400.0001, L506.1001, L503.0106 #### [facility] [address] [place], [address] Glucose [Mass/Vol] 130 mg/dL High 74-106 [facility] Comment on above: Order Comment: Order Date: 03/13/25 Order Info: 0786-1 - CMP Order Info: 06446-0 - IBC Result Comment: Fast ing Glucose result greater than or equal to 126 mg/dL suggests DIABETES MELLITUS per A.D.A. criteria. Performed By: #### L 506.0200, L400.0001, L506.1001, L503.0106 #### [facility] [address] [place], [address] Potassium [Moles/Vol] 4.1 mmol/L Normal 3.5-5.1 [facility] Comment on above: Order Comment: Order Date: 03/13/25 Order Info: 0786-1 - CMP Order Info: [id number] - IBC Performed By: #### L 506.0200, L400.0001, L506.1001, L503.0106 #### [facility] [address] [place], [address] Sodium [Moles/Vol] 139 mmol/L Normal 136-145 [facility] Comment on above: Order Comment: Order Date: 03/13/25 Order Info: 0786-1 - CMP Order Info: [id number] - IBC Performed By: #### L 506.0200, L400.0001, L506.1001, L503.0106 #### [facility] [address] [place], [address] T PROT 7.4 g/dL Normal 6.4-8.2 [facility] Comment on above: Order Comment: Order Date: 03/13/25 Order Info: 0786-1 - CMP Order Info: 75924-8 - IBC Performed By: #### L 506.0200, L400.0001, L506.1001, L503.0106 #### [facility] [address] [place], [address] Urea nitrogen [Mass/Vol] 31 mg/dL High 7-18 [facility] Comment on above: Order Comment: Order Date: 03/13/25 Order Info: 0786- - CMP Order Info: [id number] - IBC Performed By: #### L 506.0200, L400.0001, L506.1001, L503.0106 #### [facility] [address] [place], [address] Ferritinon 04-28-2024 Ferritin [Mass/Vol] 313 ng/mL Normal 26-388 [facility] Comment on above: Order Comment: Order Date: 03/13/25 Order Info: 0786-1 - CMP Order Info: [id number] - IBC Performed By: #### L 506.0200, L400.0001, L506.1001, L503.0106 #### [facility] [address] [place], [address] Folates, (Folic Acid)on FOLATES 8.00 ng/mL Normal 3.1-55.4 [facility] Comment on above: Order Comment: Order Date: 03/13/25 Order Info: 0786-1 - CMP Order Info: [id number] - IBC Performed By: #### L 506.0200, L400.0001, L506.1001, L503.0106 #### [facility] [address] [place], [address] Ironon 04-28-2024 Iron [Mass/Vol] 98 ug/dL Normal 65-175 [facility] Comment on above: Order Comment: Order Date: 03/13/25 Order Info: 0786-1 - CMP Order Info: [id number] - IBC Performed By: #### L 506.0200, L400.0001, L506.1001, L503.0106 #### [facility] [address] [place], [address] Iron Binding Capacity,Totalo n 04-28-2024 TIBC 347 ug/dL Normal 250-450 [facility] Comment on above: Order Comment: Order Date: 03/13/25 Order Info: 0786-1 - CMP Order Info: [id number] - IBC Performed By: #### L 506.0200, L400.0001, L506.1001, L503.0106 #### [facility] [address] [place], [address] Lipid Profileon 04-28-2024 Cholesterol [Mass/Vol] 186 mg/dL Normal 200 [facility] Comment on above: Order Comment: Order Date: 03/13/25 Order Info: 0786-1 - CMP Order Info: [id number] - IBC Result Comment: <200 mg/dL Desirable 200-240 mg/dL Borderline >240 mg/dL High Risk Performed By: #### L 506.0200, L400.0001, L506.1001, L503.0106 #### [facility] [address] [place], [address] Cholesterol in HDL [Mass/Vol] 83 mg/dL Normal [facility] Comment on above: Order Comment: Order Date: 03/13/25 Order Info: 0786-1 - CMP Order Info: [id number] - IBC Result Comment: The drugs N-Acetylcysteine and Metamizole may falsely depress this assay. Reference Range HDL <40 mg/dL Low HDL Cholesterol HDL >or= 60 mg/dL High HDL Cholesterol Performed By: #### L 506.0200, L400.0001, L506.1001, L503.0106 #### [facility] [address] [place], [address] Cholesterol in LDL [Mass/Vol] 75 mg/dL Normal 0-130 [facility] Comment on above: Order Comment: Order Date: 03/13/25 Order Info: 0786-1 - CMP Order Info: [id number] - IBC Performed By: #### L 506.0200, L400.0001, L506.1001, L503.0106 #### [facility] [address] [place], [address] Cholesterol in VLDL [Mass/Vol] 28 mg/dL Normal 5-40 [facility] Comment on above: Order Comment: Order Date: 03/13/25 Order Info: 0786-1 - CMP Order Info: [id number] - IBC Performed By: #### L 506.0200, L400.0001, L506.1001, L503.0106 #### [facility] [address] [place], [address] Triglyceride [Mass/Vol] 141 mg/dL Normal [facility] Comment on above: Order Comment: Order Date: 03/13/25 Order Info: 0786-1 - CMP Order Info: [id number] - IBC Result Comment: The drugs N-Acetylcysteine and Metamizole may falsely depress this assay. Serum Triglycerides Reference Interval Normal <150 mg/dL Borderline high 150 - 199 mg/dL High 200 - 499 mg/dL Very High > or = 500 mg/dL Performed By: #### L 506.0200, L400.0001, L506.1001, L503.0106 #### [facility] [address] [place], [address] Magnesiumon 04-28-2024 Magnesium [Mass/Vol] 2.2 mg/dL Normal 1.6-2.6 [facility] Comment on above: Order Comment: Order Date: 03/13/25 Order Info: 0786-1 - CMP Order Info: [id number] - IBC Performed By: #### L 506.0200, L400.0001, L506.1001, L503.0106 #### [facility] [address] [place], [address] PTHINon 04-28-2024 PTH 76.0 pg/mL Normal 18.4-80.1 [facility] Comment on above: Order Comment: Order Date: 04/28/24Order Info: 0565-1 - PTHIN Performed By: #### L 501.0900 #### [facility] [address] [place], [address] Phosphoruson 04-28-2024 Phosphate [Mass/Vol] 3.5 mg/dL Normal 2.5-4.9 [facility] Comment on above: Order Comment: Order Date: 03/13/25 Order Info: 0786-1 - CMP Order Info: [id number] - IBC Performed By: #### L 506.0200, L400.0001, L506.1001, L503.0106 #### [facility] [address] [place], [address] Protein+Creatinine Ratio,Uri neon 04-28-2024 PROT:CRE RATIO TNP Normal 0-200 [facility] Comment on above: Performed By: #### L 501.0900 #### [facility] [address] [place], [address] PROTEIN,UR.RAN. < 6.0 Normal <11.9 [facility] Comment on above: Performed By: #### L 501.0900 #### [facility] [address] [place], [address] UR CREAT 34.00 mg/dL Normal NO RANGE EST. [facility] Comment on above: Performed By: #### L 501.0900 #### [facility] [address] [place], [address] Thyroid Stim Hormone (TSH)on 04-28-2024 TSH 0.922 uIU/mL Normal 0.358-3.74 0 [facility] Comment on above: Order Comment: Order Date: 03/13/25 Order Info: 0786-1 - CMP Order Info: [id number] - IBC Performed By: #### L 506.0200, L400.0001, L506.1001, L503.0106 #### [facility] [address] [place], [address] Uric Acidon 04-28-2024 URIC 8.9 mg/dL High 3.5-7.2 [facility] Comment on above: Order Comment: Order Date: 04/28/24Order Info: 0786-1 - CMPOrder Info: [id number] - LIPIDOrder Info: 3084-1 - URICOrder Info: 2777-1 - PHOSOrder Info: [id number] - MGOrder Info: 3016-3 - TSHOrder Info: 5124-7 - TIBCOrder Info: 0308-4 - FEOrder Info: 3886-4 - FEROrder Info: 2284-8 - FOLSN Result Comment: The drugs N-Acetylcysteine and Metamizole may falsely depress this assay. Performed By: #### L 501.9910 #### [facility] [address] [place], [address] Vitamin B12on 04-28-2024 Cobalamin (Vitamin B12) [Mass/Vol] 275 pg/mL Normal 211-911 [facility] Comment on above: Order Comment: Order Date: 04/28/24Order Info: 2132-9 - Y23Dygqt Info: 27627-5 - VITD25 Performed By: #### L 501.0900 #### [facility] [address] [place], [address] Vitamin D,25 Hydroxyon 04-28 Vitamin D 25-OH 40.6 ng/mL Normal [facility] Comment on above: Order Comment: Order Date: 03/13/25 Order Info: 0786-1 - CMP Order Info: [id number] - IBC Result Comment: Purnima min D 25(OH) Status Range Deficiency <20 ng/mL (50nmol/L) Insufficiency 20 - 30 ng/mL (50 - 75 nmol/L) Sufficiency 30 - 100 ng/mL (75 - 250 nmol/L) Toxicity >100 ng/mL (>250 nmol/L) Performed By: #### L 506.0200, L400.0001, L506.1001, L503.0106 #### [facility] [address] [place], [address] Emergency Department Summary on 04-23-2024 Emergency Department Summary [facility] Medical Records Department [address] [place] [address] Emergency Department Summary 04/23/24 MR#: [id number] Acct: [id number] Name: SHANNON OLSON Rep #: [id number] : 1955 68 From: Andre Rueda MD [...] Prior similar symptoms: Yes Recent Illness/Hospitalization: Yes [facility] Medical History Left rotator [...] (hypertension) Hyperlipidemia Esophageal reflux Coronary atherosclerosis of [place] coronary vessel Home Medications ???Medication ???Instructions ???Recorded [...] History o (more content not included)... Normal [facility] PSA,Total - Annual Screenon 04-12-2024 PSA,TOT SCREEN 1.67 ng/mL Normal 0.00-4.00 [facility] Comment on above: Result Comment: This test was performed using the TPSA assay method for the JP3 Measurement chemistry system. Values obtained with different assay methods cannot be used interchangably. When changing PSA assays in the course of monitoring a patient, additional sequential testing should be carried out to confirm baseline values. Performed By: #### L 501.9910 #### [facility] [address] [facility] [place], [place], [address] Extremity Lower WITH Contras ton 04-11-2024 Extremity Lower WITH Contrast [facility] Imaging Services [address] [place] [address] Extremity Lower WITH Contrast MR#: [id number] Acct: [id number] Name: SHANNON OLSON Rep #: [id number] : 1955 M 68 From: Beka tariq MD PCP: Dr. 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 / [place] , Service support , CC: KYLIE Luna; Dr. Finn Ferrell MD Senior [employer]: Signed Normal [facility] Emergency Department Summary on 04-08-2024 Emergency Department Summary [facility] Medical Records Department [address] [place] [address] Emergency Department Summary 04/08/24 MR#: [id number] Acct: [id number] Name: SHANNON OLSON Rep #: [id number] : 1955 68 From: Ronald Churchill MD [...] No fevers or chills, no other symptoms. [facility] Medical History Left rotator [...] (hypertension) Hyperlipidemia Esophageal reflux Coronary atherosclerosis of [place] coronary vessel Home Medications ???Medication ???Instructions ???Recorded [...] neck p (more content not included)... Normal [facility] Absolute lymphocyte countOrd ered By: Finn Ferrell on 07-13-2023 Lymphocytes Auto (Unsp spec) [#/Vol] 1.67 10*3/uL 0.83-4.51 [facility] Automated lymphocyte count a s percentage of total leukocytesOrdered By: Finn Ferrell on 07-13-2023 Lymphocytes/100 WBC Auto (Unsp spec) 16.8 % 19-41 [facility] Basophil percentageOrdered B y: Finn Ferrell on 07-13-2023 Basophil percentage 0-5 SEEN /hpf 0-5 [facility] Basophil percentage 3.8 mg/dL 2.5-4.9 [facility] Basophils/100 WBC (Bld) 0.6 % 0-1 [facility] Bilirubin [Mass/Vol] 1.10 mg/dL 0.20-1.00 [facility] Comment on above: For patients on eltr ombopag therapy, use of Dimension [place] TBIL is not recommended. Chloride [Moles/Vol] 109 mmol/L 98-107 [facility] Cholesterol [Mass/Vol] 174 mg/dL <200 [facility] Comment on above: <200 mg/dL Desirable 200-240 mg/dL Borderline >240 mg/dL High Risk Eosinophils/100 WBC (Bld) 1.2 % 0-5 [facility] Glucose [Mass/Vol] 90 mg/dL 74-106 [facility] Hemoglobin (Bld) [Mass/Vol] 13.0 g/dL 13.0-16.5 [facility] Monocytes/100 WBC (Bld) 6.7 % 0-10 [facility] Neutrophils (Bld) [#/Vol] 7.4 10*3/uL 2.0-7.7 [facility] Neutrophils/100 WBC (Bld) 74.2 % 47-70 [facility] Potassium [Moles/Vol] 4.2 mmol/L 3.5-5.1 [facility] Protein [Mass/Vol] 7.9 g/dL 6.4-8.2 [facility] Sodium [Moles/Vol] 141 mmol/L 136-145 [facility] Triglyceride [Mass/Vol] 260 mg/dL <199 [facility] Comment on above: The drugs N-Acetylcy steine and Metamizole may falsely depress this assay.Serum Triglycerides Reference Interval Normal <150 mg/dL Borderline high 150 - 199 mg/dL High 200 - 499 mg/dL Very High > or = 500 mg/dL WBC (Bld) [#/Vol] 10.0 10*3/uL 4.4-11.0 [facility] Bilirubin Test strip Ql (U)O rdered By: Finn Ferrell on 07-13-2023 Bilirubin Ql (U) Negative Negative [facility] Determination of erythrocyte mean corpuscular volume (MCV)Ordered By: Finn Ferrell on 07-13-2023 MCV (RBC) [Entitic vol] 89.6 fL 80-94 [facility] Erythrocyte distribution wid th ratioOrdered By: Finn Ferrell on 07-13-2023 Erythrocyte distribution width (RBC) [Ratio] 14.6 % 11.6-14.6 [facility] Erythrocyte distribution wid th standard deviationOrdered By: Finn Ferrell on 07-13-2023 Erythrocyte distribution width (RBC) [Entitic vol] 47.4 fL 35.1-43.9 [facility] Hematocrit Auto (Bld) [Volum e fraction]Ordered By: Finn Ferrell on 07-13-2023 Hematocrit (Bld) [Volume fraction] 40.5 % 40-54 [facility] Hyaline casts LM.LPF (Urine sed) [#/Area]Ordered By: Finn Ferrell on 07-13-2023 Hyaline casts (Urine sed) [#/Area] 5 /[LPF] 0-5 [facility] Immature granulocytes/100 WB C Auto (Bld)Ordered By: Fnin Ferrell on 07-13-2023 Immature granulocytes/100 WBC (Bld) 0.500 % 0.0-0.9 [facility] Comment on above: IG% - Immature Granu locytes (promyelocytes, myelocytes and metamyelocytes) > 1% indicates that a LEFT SHIFT is Present. Ketones Test strip Ql (U)Ord ered By: Finn Ferrell on 07-13-2023 Ketones Ql (U) 5 mg/dl Negative [facility] - Chemistry and C hemistry - challengeOrdered By: Finn Ferrell on 07-13-2023 Albumin/Globulin [Mass ratio] 0.9 {ratio} 0.9-2.4 [facility] ALP [Catalytic activity/Vol] 95 U/L 45-117 [facility] ALT [Catalytic activity/Vol] 31 U/L 16-61 [facility] Cholesterol in HDL [Mass/Vol] 52 mg/dL >40 [facility] Comment on above: The drugs N-Acetylcy steine and Metamizole may falsely depress this assay. Reference Range HDL <40 mg/dL Low HDL Cholesterol HDL >or= 60 mg/dL High HDL Cholesterol Cholesterol in LDL [Mass/Vol] 70 mg/dL 0-130 [facility] CO2 [Moles/Vol] 25.0 mmol/L 21.0-32.0 [facility] Globulin (S) [Mass/Vol] 4.2 g/dL 2.2-4.2 [facility] Magnesium [Mass/Vol] 2.2 mg/dL 1.6-2.6 [facility] Urea nitrogen/Creatinine [Mass ratio] 14.5 mg/mg 10-20 [facility] Laboratory - Hematology and Cell countsOrdered By: Finn Ferrell on 07-13-2023 MCH (RBC) [Entitic mass] 28.8 pg 27.0-32.0 [facility] MCHC (RBC) [Mass/Vol] 32.1 g/dL 32-36 [facility] Nucleated RBC/100 WBC (Bld) [Ratio] 0 % 0-5 [facility] Platelet mean volume (Bld) [Entitic vol] 9.8 fL 6.2-12.0 [facility] Platelets (Bld) [#/Vol] 292 10*3/uL 150-450 [facility] Mucus LM Ql (Urine sed)Order ed By: Finn Ferrell on 07-13-2023 Mucus Ql (Urine sed) 0 SEEN /hpf [facility] Nitrite Test strip Ql (U)Ord ered By: Finn Ferrell on 07-13-2023 Nitrite Ql (U) Negative Negative [facility] No Panel InformationOrdered By: Finn Ferrell on 07-13-2023 Urine RBC 0 SEEN /hpf 0-5 [facility] Estimated GFR (MDRD) Amer 51 mL/min >60 [facility] Comment on above: GFR Calc Estimated GFR (MDRD) Non-Af Amer 42 mL/min >60 [facility] Comment on above: Non- GFR Calc Parathyroid Hormone (Intact) 58.0 pg/mL 18.4-80.1 [facility] Vitamin D 25-Hydroxy 32.3 ng/mL [facility] Comment on above: Vitamin D 25(OH) Sta tus Range Deficiency <20 ng/mL (50nmol/L) Insufficiency 20 - 30 ng/mL (50 - 75 nmol/L) Sufficiency 30 - 100 ng/mL (75 - 250 nmol/L) Toxicity >100 ng/mL (>250 nmol/L) VLDL Cholesterol 52 mg/dL 5-40 [facility] Protein Test strip Ql (U)Ord ered By: Finn Ferrell on 07-13-2023 Protein Ql (U) Negative Negative [facility] RBC Auto (Bld) [#/Vol]Ordere d By: Finn Ferrell on 07-13-2023 RBC (Bld) [#/Vol] 4.52 10*6/uL 4.6-6.2 [facility] Serum or plasma calcium renu urement (mass/volume)Ordered By: Finn Ferrell on 07-13-2023 Calcium [Mass/Vol] 9.5 mg/dL 8.5-10.1 [facility] Serum or plasma creatinine m easurement (mass/volume)Ordered By: Finn Ferrell on 07-13-2023 Creatinine [Mass/Vol] 1.72 mg/dL 0.70-1.30 [facility] Comment on above: The validity of the calculated GFR & GFRAA in patients over 70 years has not been determined. Clinical correlation is essential. Serum or plasma urea nitroge n measurement (mass/volume)Ordered By: Finn Ferrell on 07-13-2023 Urea nitrogen [Mass/Vol] 25 mg/dL 7-18 [facility] Squamous epithelial cells de tection in urine sediment by light microscopyOrdered By: Finn Ferrell on 07-13-2023 Epithelial cells.squamous LM Ql (Urine sed) 0 SEEN /hpf 0-5 [facility] Thin prep Papanicolaou smear with manual screeningOrdered By: Finn Ferrell on 07-13-2023 Protein (U) [Mass/Vol] 9.6 mg/dL 0.0-11.8 [facility] Thin prep Papanicolaou smear with manual screening 3.7 g/dL 3.2-5.0 [facility] Thin prep Papanicolaou smear with manual screening 15 U/L 15-37 [facility] Thin prep Papanicolaou smear with manual screening 7 5-15 [facility] Urine blood detectionOrdered By: Finn Ferrell on 07-13-2023 RBC Ql (U) Negative Negative [facility] Urine clarityOrdered By: Benedicto Ferrell on 07-13-2023 Clarity (U) Clear Clear [facility] Urine color determinationOrd ered By: Finn Ferrell on 07-13-2023 Color (U) Yellow Yellow [facility] Urine creatinine measurement (mass/volume)Ordered By: Finn Ferrell on 07-13-2023 Creatinine (U) [Mass/Vol] 127.00 mg/dL NO RANGE EST. [facility] Urine glucose detectionOrder ed By: Finn Ferrell on 07-13-2023 Glucose Ql (U) Normal mg/dl Normal [facility] Urine leukocyte esterase det ection by dipstickOrdered By: Finn Ferrell on 07-13-2023 Leukocyte esterase Test strip Ql (U) 25 /ul Negative [facility] Urine pHOrdered By: Finn vaughn on 07-13-2023 pH (U) 5.0 [pH] 5.0 - 8.0 [facility] Urine protein/creatinine mas s ratioOrdered By: Finn Ferrell on 07-13-2023 Protein/Creatinine (U) [Mass ratio] 76 mg/g CRE 0-200 [facility] Urine sediment bacteria coun t by microscopy (number/high power field)Ordered By: Finn Ferrell on 02-20-2024 Bacteria LM.HPF (Urine sed) [#/Area] 0 /[HPF] None Seen [facility] Urine specific gravity measu rementOrdered By: Finn Ferrell on 07-13-2023 Specific gravity (U) [Rel density] 1.020 1.002-1.03 0 [facility] Urine urobilinogen measureme ntOrdered By: Finn Ferrell on 07-13-2023 Urobilinogen Ql (U) Normal mg/dl Normal [facility] Absolute lymphocyte countOrd ered By: Reynaldo Gaviria on 07-05-2023 Lymphocytes Auto (Unsp spec) [#/Vol] 1.18 10*3/uL 0.83-4.51 [facility] Automated lymphocyte count a s percentage of total leukocytesOrdered By: Reynaldo Gaviria on 07-05-2023 Lymphocytes/100 WBC Auto (Unsp spec) 15.2 % 19-41 [facility] Basophil percentageOrdered B y: Reynaldo Gaviria on 07-05-2023 Basophil percentage 0 SEEN /hpf 0-5 [facility] Basophils/100 WBC (Bld) 0.6 % 0-1 [facility] Bilirubin [Mass/Vol] 1.00 mg/dL 0.20-1.00 [facility] Comment on above: For patients on eltr ombopag therapy, use of Dimension [place] TBIL is not recommended. Chloride [Moles/Vol] 112 mmol/L 98-107 [facility] Eosinophils/100 WBC (Bld) 1.4 % 0-5 [facility] Glucose [Mass/Vol] 121 mg/dL 74-106 [facility] Comment on above: Fasting Glucose resu lt from 100 to 125 mg/dL suggests IMPAIRED HOMEOSTASIS per A.D.A. criteria. Hemoglobin (Bld) [Mass/Vol] 12.9 g/dL 13.0-16.5 [facility] Monocytes/100 WBC (Bld) 7.1 % 0-10 [facility] Neutrophils (Bld) [#/Vol] 5.8 10*3/uL 2.0-7.7 [facility] Neutrophils/100 WBC (Bld) 74.9 % 47-70 [facility] Potassium [Moles/Vol] 4.6 mmol/L 3.5-5.1 [facility] Protein [Mass/Vol] 7.6 g/dL 6.4-8.2 [facility] Sodium [Moles/Vol] 142 mmol/L 136-145 [facility] WBC (Bld) [#/Vol] 7.8 10*3/uL 4.4-11.0 [facility] Bilirubin Test strip Ql (U)O rdered By: Reynaldo Gaviria on 07-05-2023 Bilirubin Ql (U) Negative Negative [facility] Determination of erythrocyte mean corpuscular volume (MCV)Ordered By: Reynaldo Gaviria on 07-05-2023 MCV (RBC) [Entitic vol] 90.6 fL 80-94 [facility] Erythrocyte distribution wid th ratioOrdered By: Reynaldo Gaviria on 07-05-2023 Erythrocyte distribution width (RBC) [Ratio] 14.6 % 11.6-14.6 [facility] Erythrocyte distribution wid th standard deviationOrdered By: Reynaldo Gaviria on 07-05-2023 Erythrocyte distribution width (RBC) [Entitic vol] 47.9 fL 35.1-43.9 [facility] Hematocrit Auto (Bld) [Volum e fraction]Ordered By: Reynaldo Gaviria on 07-05-2023 Hematocrit (Bld) [Volume fraction] 40.3 % 40-54 [facility] Immature granulocytes/100 WB C Auto (Bld)Ordered By: Reynaldo Gaviria on 07-05-2023 Immature granulocytes/100 WBC (Bld) 0.800 % 0.0-0.9 [facility] Comment on above: IG% - Immature Granu locytes (promyelocytes, myelocytes and metamyelocytes) > 1% indicates that a LEFT SHIFT is Present. Ketones Test strip Ql (U)Ord ered By: Reynaldo Gaviria on 07-05-2023 Ketones Ql (U) Negative Negative [facility] Laboratory - Chemistry and C hemistry - challengeOrdered By: Reynaldo Gaviria on 07-05-2023 Albumin/Globulin [Mass ratio] 0.9 {ratio} 0.9-2.4 [facility] ALP [Catalytic activity/Vol] 97 U/L 45-117 [facility] ALT [Catalytic activity/Vol] 28 U/L 16-61 [facility] CO2 [Moles/Vol] 25.0 mmol/L 21.0-32.0 [facility] Globulin (S) [Mass/Vol] 3.9 g/dL 2.2-4.2 [facility] Lipase [Catalytic activity/Vol] 53 U/L 13-75 [facility] Comment on above: Please note:LIPASE r evised reference range effective 22. New Lipase methodology. Expected to produce lower values than the previous assay method. NEW Reference Range: 13 - 75 U/L Urea nitrogen/Creatinine [Mass ratio] 21.3 mg/mg 10-20 [facility] Laboratory - Hematology and Cell countsOrdered By: Reynaldo Gaviria on 07-05-2023 MCH (RBC) [Entitic mass] 29.0 pg 27.0-32.0 [facility] MCHC (RBC) [Mass/Vol] 32.0 g/dL 32-36 [facility] Nucleated RBC/100 WBC (Bld) [Ratio] 0 % 0-5 [facility] Platelet mean volume (Bld) [Entitic vol] 9.8 fL 6.2-12.0 [facility] Platelets (Bld) [#/Vol] 238 10*3/uL 150-450 [facility] Mucus LM Ql (Urine sed)Order ed By: Reynaldo Gaviria on 07-05-2023 Mucus Ql (Urine sed) 0 SEEN /hpf [facility] Nitrite Test strip Ql (U)Ord ered By: Reynaldo Gaviria on 07-05-2023 Nitrite Ql (U) Negative Negative [facility] No Panel InformationOrdered By: Reynaldo Gaviria on 07-05-2023 Urine RBC 0 SEEN /hpf 0-5 [facility] Estimated Creatinine Clearance Calc 61.91 ml/min [facility] Estimated GFR (MDRD) Amer 51 mL/min >60 [facility] Comment on above: GFR Calc Estimated GFR (MDRD) Non-Af Amer 42 mL/min >60 [facility] Comment on above: Non- GFR Calc Protein Test strip Ql (U)Ord ered By: Reynaldo Gaviria on 07-05-2023 Protein Ql (U) Negative Negative [facility] RBC Auto (Bld) [#/Vol]Ordere d By: Reynaldo Gaviria on 07-05-2023 RBC (Bld) [#/Vol] 4.45 10*6/uL 4.6-6.2 [facility] Serum or plasma calcium renu urement (mass/volume)Ordered By: Reynaldo Gaviria on 07-05-2023 Calcium [Mass/Vol] 9.2 mg/dL 8.5-10.1 [facility] Serum or plasma creatinine m easurement (mass/volume)Ordered By: Reynaldo Gaviria on 07-05-2023 Creatinine [Mass/Vol] 1.74 mg/dL 0.70-1.30 [facility] Comment on above: The validity of the calculated GFR & GFRAA in patients over 70 years has not been determined. Clinical correlation is essential. Serum or plasma urea nitroge n measurement (mass/volume)Ordered By: Reynaldo Gaviria on 07-05-2023 Urea nitrogen [Mass/Vol] 37 mg/dL 7-18 [facility] Squamous epithelial cells de tection in urine sediment by light microscopyOrdered By: Reynaldo Gaviria on 07-05-2023 Epithelial cells.squamous LM Ql (Urine sed) 0 SEEN /hpf 0-5 [facility] Thin prep Papanicolaou smear with manual screeningOrdered By: Reynaldo Gaviria on 07-05-2023 Thin prep Papanicolaou smear with manual screening 3.7 g/dL 3.2-5.0 [facility] Thin prep Papanicolaou smear with manual screening 9 U/L 15-37 [facility] Thin prep Papanicolaou smear with manual screening 5 5-15 [facility] Urine blood detectionOrdered By: Reynaldo Gaviria on 07-05-2023 RBC Ql (U) Negative Negative [facility] Urine clarityOrdered By: Lobito Gaviria on 07-05-2023 Clarity (U) Clear Clear [facility] Urine color determinationOrd ered By: Reynaldo Gaviria on 07-05-2023 Color (U) Yellow Yellow [facility] Urine glucose detectionOrder ed By: Reynaldo Gaviria on 07-05-2023 Glucose Ql (U) Normal mg/dl Normal [facility] Urine leukocyte esterase det ection by dipstickOrdered By: Reynaldo Gaviria on 07-05-2023 Leukocyte esterase Test strip Ql (U) Negative Negative [facility] Urine pHOrdered By: Reynaldo gonzalez on 07-05-2023 pH (U) 6.0 [pH] 5.0 - 8.0 [facility] Urine sediment bacteria coun t by microscopy (number/high power field)Ordered By: Reynaldo Gaviria on 07-05-2023 Bacteria LM.HPF (Urine sed) [#/Area] 0 /[HPF] None Seen [facility] Urine specific gravity measu rementOrdered By: Reynaldo Gaviria on 07-05-2023 Specific gravity (U) [Rel density] 1.015 1.002-1.03 0 [facility] Urine urobilinogen measureme ntOrdered By: Reynaldo Gaviria on 07-05-2023 Urobilinogen Ql (U) Normal mg/dl Normal [facility] Basophil percentageon 2022 Chloride [Moles/Vol] 112 mmol/L 98-107 [facility] Glucose [Mass/Vol] 116 mg/dL 74-106 [facility] Comment on above: Fasting Glucose resu lt from 100 to 125 mg/dL suggests IMPAIRED HOMEOSTASIS per A.D.A. criteria. Potassium [Moles/Vol] 4.1 mmol/L 3.5-5.1 [facility] Sodium [Moles/Vol] 142 mmol/L 136-145 [facility] Laboratory - Chemistry and C hemistry - challengeon 04-09-2023 CO2 [Moles/Vol] 28.0 mmol/L 21.0-32.0 [facility] Urea nitrogen/Creatinine [Mass ratio] 16.7 mg/mg 10-20 [facility] No Panel Informationon 04-09 Estimated GFR (MDRD) Amer 60 mL/min >60 [facility] Comment on above: GFR Calc Estimated GFR (MDRD) Non-Af Amer 50 mL/min >60 [facility] Comment on above: Non- GFR Calc Serum or plasma calcium renu urement (mass/volume)on 04-09-2023 Calcium [Mass/Vol] 8.5 mg/dL 8.5-10.1 [facility] Serum or plasma creatinine m easurement (mass/volume)on 04-09-2023 Creatinine [Mass/Vol] 1.50 mg/dL 0.70-1.30 [facility] Comment on above: The validity of the calculated GFR & GFRAA in patients over 70 years has not been determined. Clinical correlation is essential. Serum or plasma urea nitroge n measurement (mass/volume)on 04-09-2023 Urea nitrogen [Mass/Vol] 25 mg/dL 7-18 [facility] Thin prep Papanicolaou smear with manual screeningon 04-09-2023 Thin prep Papanicolaou smear with manual screening 2 5-15 [facility] Absolute lymphocyte countOrd ered By: Finn Ferrell on 03-24-2023 Lymphocytes Auto (Unsp spec) [#/Vol] 1.31 10*3/uL 0.83-4.51 [facility] Basophil percentageOrdered B y: Finn Ferrell on 03-24-2023 Basophil percentage 0 SEEN /hpf 0-5 [facility] Basophil percentage 2.4 mg/dL 2.5-4.9 [facility] Basophils/100 WBC (Bld) 0.5 % 0-1 [facility] Bilirubin [Mass/Vol] 0.80 mg/dL 0.20-1.00 [facility] Comment on above: For patients on eltr ombopag therapy, use of Dim[place] TBIL is not recommended. Chloride [Moles/Vol] 109 mmol/L 98-107 [facility] Cholesterol [Mass/Vol] 131 mg/dL <200 [facility] Comment on above: <200 mg/dL Desirable 200-240 mg/dL Borderline >240 mg/dL High Risk Eosinophils/100 WBC (Bld) 1.2 % 0-5 [facility] Glucose [Mass/Vol] 84 mg/dL 74-106 [facility] Neutrophils (Bld) [#/Vol] 5.4 10*3/uL 2.0-7.7 [facility] Neutrophils/100 WBC (Bld) 73.4 % 47-70 [facility] Potassium [Moles/Vol] 3.7 mmol/L 3.5-5.1 [facility] Protein [Mass/Vol] 7.2 g/dL 6.4-8.2 [facility] Sodium [Moles/Vol] 140 mmol/L 136-145 [facility] Triglyceride [Mass/Vol] 226 mg/dL <199 [facility] Comment on above: The drugs N-Acetylcy steine and Metamizole may falsely depress this assay.Serum Triglycerides Reference Interval Normal <150 mg/dL Borderline high 150 - 199 mg/dL High 200 - 499 mg/dL Very High > or = 500 mg/dL WBC (Bld) [#/Vol] 7.4 10*3/uL 4.4-11.0 [facility] Bilirubin Test strip Ql (U)O rdered By: Finn Ferrell on 03-24-2023 Bilirubin Ql (U) Negative Negative [facility] Blood erythrocytes count (nu mber/volume)Ordered By: Finn Ferrell on 03-24-2023 RBC (Bld) [#/Vol] 4.16 10*6/uL 4.6-6.2 [facility] Blood hemoglobin measurement (mass/volume)Ordered By: Finn Ferrell on 03-24-2023 Hemoglobin (Bld) [Mass/Vol] 12.1 g/dL 13.0-16.5 [facility] Blood lymphocytes/100 leukoc ytesOrdered By: Finn Ferrell on 03-24-2023 Lymphocytes/100 WBC (Bld) 17.8 % 19-41 [facility] Blood monocytes/100 leukocyt esOrdered By: Finn Ferrell on 03-24-2023 Monocytes/100 WBC (Bld) 6.6 % 0-10 [facility] Blood platelet mean volumeOr dered By: Finn Ferrell on 03-24-2023 Platelet mean volume (Bld) [Entitic vol] 9.6 fL 6.2-12.0 [facility] Determination of erythrocyte mean corpuscular volume (MCV)Ordered By: Finn Ferrell on 03-24-2023 MCV (RBC) [Entitic vol] 92.5 fL 80-94 [facility] Hematocrit Auto (Bld) [Volum e fraction]Ordered By: Finn Ferrell on 03-24-2023 Hematocrit (Bld) [Volume fraction] 38.5 % 40-54 [facility] Iron measurement (mass/mass) Ordered By: Finn Ferrell on 03-24-2023 Iron (Unsp spec) [Mass/Mass] 56 ug/dL 65-175 [facility] Ketones Test strip Ql (U)Ord ered By: Finn Ferrell on 03-24-2023 Ketones Ql (U) Negative Negative [facility] Laboratory - Chemistry and C hemistry - challengeOrdered By: Finn Ferrell on 03-24-2023 ALP [Catalytic activity/Vol] 88 U/L 45-117 [facility] ALT [Catalytic activity/Vol] 28 U/L 16-61 [facility] CO2 [Moles/Vol] 26.0 mmol/L 21.0-32.0 [facility] Cobalamin (Vitamin B12) [Mass/Vol] 304 pg/mL 211-911 [facility] Globulin (S) [Mass/Vol] 3.8 g/dL 2.2-4.2 [facility] Urea nitrogen/Creatinine [Mass ratio] 14.7 mg/mg 10-20 [facility] Laboratory - Hematology and Cell countsOrdered By: Finn Ferrell on 03-24-2023 Erythrocyte distribution width (RBC) [Entitic vol] 45.4 fL 35.1-43.9 [facility] Erythrocyte distribution width (RBC) [Ratio] 13.4 % 11.6-14.6 [facility] Immature granulocytes/100 WBC (Bld) 0.500 % 0.0-0.9 [facility] Comment on above: IG% - Immature Granu locytes (promyelocytes, myelocytes and metamyelocytes) > 1% indicates that a LEFT SHIFT is Present. MCH (RBC) [Entitic mass] 29.1 pg 27.0-32.0 [facility] Nucleated RBC/100 WBC (Bld) [Ratio] 0 % 0-5 [facility] MCHC Auto (RBC) [Mass/Vol]Or dered By: Finn Ferrell on 03-24-2023 MCHC (RBC) [Mass/Vol] 31.4 g/dL 32-36 [facility] Mucus LM Ql (Urine sed)Order ed By: Finn Ferrell on 03-24-2023 Mucus Ql (Urine sed) 0 SEEN /hpf [facility] Nitrite Test strip Ql (U)Ord ered By: Finn Ferrell on 03-24-2023 Nitrite Ql (U) Negative Negative [facility] No Panel InformationOrdered By: Finn Ferrell on 03-24-2023 Estimated GFR (MDRD) Amer 67 mL/min >60 [facility] Comment on above: GFR Calc Estimated GFR (MDRD) Non-Af Amer 56 mL/min >60 [facility] Comment on above: Non- GFR Calc Parathyroid Hormone (Intact) 54.0 pg/mL 18.4-80.1 [facility] Total Iron Binding Capacity 277 ug/dL 250-450 [facility] Vitamin D 25-Hydroxy 55.9 ng/mL [facility] Comment on above: Vitamin D 25(OH) Sta tus Range Deficiency <20 ng/mL (50nmol/L) Insufficiency 20 - 30 ng/mL (50 - 75 nmol/L) Sufficiency 30 - 100 ng/mL (75 - 250 nmol/L) Toxicity >100 ng/mL (>250 nmol/L) Platelets bldOrdered By: Benedicto Ferrell on 03-24-2023 Platelets (Bld) [#/Vol] 254 10*3/uL 150-450 [facility] Protein Test strip Ql (U)Ord ered By: Finn Ferrell on 03-24-2023 Protein Ql (U) Negative Negative [facility] Serum or plasma albumin renu urement (mass/volume)Ordered By: Finn Ferrell on 03-24-2023 Albumin [Mass/Vol] 3.4 g/dL 3.2-5.0 [facility] Serum or plasma albumin/glob ulin mass ratioOrdered By: Finn Ferrell on 03-24-2023 Albumin/Globulin [Mass ratio] 0.9 {ratio} 0.9-2.4 [facility] Serum or plasma calcium renu urement (mass/volume)Ordered By: Finn Ferrell on 03-24-2023 Calcium [Mass/Vol] 8.6 mg/dL 8.5-10.1 [facility] Serum or plasma cholesterol in HDL measurement (mass/volume)Ordered By: Finn Ferrell on 03-24-2023 Cholesterol in HDL [Mass/Vol] 47 mg/dL >40 [facility] Comment on above: The drugs N-Acetylcy steine and Metamizole may falsely depress this assay. Reference Range HDL <40 mg/dL Low HDL Cholesterol HDL >or= 60 mg/dL High HDL Cholesterol Serum or plasma cholesterol in VLDL measurement (mass/volume)Ordered By: Finn Ferrell on 03-24-2023 Cholesterol in VLDL [Mass/Vol] 45 mg/dL 5-40 [facility] Serum or plasma creatinine m easurement (mass/volume)Ordered By: Finn Ferrell on 03-24-2023 Creatinine [Mass/Vol] 1.36 mg/dL 0.70-1.30 [facility] Comment on above: The validity of the calculated GFR & GFRAA in patients over 70 years has not been determined. Clinical correlation is essential. Serum or plasma ferritin ellen surement (mass/volume)Ordered By: Finn Ferrell on 03-24-2023 Ferritin [Mass/Vol] 254 ng/mL 26-388 [facility] Serum or plasma folate measu rement (mass/volume)Ordered By: Finn Ferrell on 03-24-2023 Folate [Mass/Vol] 7.50 ng/mL 3.1-55.4 [facility] Serum or plasma low density lipoprotein (LDL) cholesterol measurement (mass/volume)Ordered By: Finn Ferrell on 03-24-2023 Cholesterol in LDL [Mass/Vol] 39 mg/dL 0-130 [facility] Serum or plasma urea nitroge n measurement (mass/volume)Ordered By: Finn Ferrell on 03-24-2023 Urea nitrogen [Mass/Vol] 20 mg/dL 7-18 [facility] Squamous epithelial cells de tection in urine sediment by light microscopyOrdered By: Finn Ferrell on 03-24-2023 Epithelial cells.squamous LM Ql (Urine sed) 0 SEEN /hpf 0-5 [facility] Thin prep Papanicolaou smear with manual screeningOrdered By: Finn Ferrell on 03-24-2023 Thin prep Papanicolaou smear with manual screening 13 U/L 15-37 [facility] Thin prep Papanicolaou smear with manual screening 5 5-15 [facility] Urine blood detectionOrdered By: Finn Ferrell on 03-24-2023 RBC Ql (U) Negative Negative [facility] RBC Ql (U) 0 SEEN /hpf 0-5 [facility] Urine clarityOrdered By: Benedicto Ferrell on 03-24-2023 Clarity (U) Clear Clear [facility] Urine color determinationOrd ered By: Finn Ferrell on 11-01-2023 Color (U) Yellow Yellow [facility] Urine glucose detectionOrder ed By: Finn Ferrell on 03-24-2023 Glucose Ql (U) Normal mg/dl Normal [facility] Urine leukocyte esterase det ection by dipstickOrdered By: Finn Ferrell on 03-24-2023 Leukocyte esterase Test strip Ql (U) Negative Negative [facility] Urine pHOrdered By: Finn vaughn on 03-24-2023 pH (U) 6.0 [pH] 5.0 - 8.0 [facility] Urine sediment bacteria coun t by microscopy (number/high power field)Ordered By: Finn Ferrell on 03-24-2023 Bacteria LM.HPF (Urine sed) [#/Area] 0 /[HPF] None Seen [facility] Urine specific gravity measu rementOrdered By: Finn Ferrell on 03-24-2023 Specific gravity (U) [Rel density] 1.015 1.002-1.03 0 [facility] Urobilinogen Auto test strip Ql (U)Ordered By: Finn Ferrell on 03-24-2023 Urobilinogen Ql (U) Normal mg/dl Normal [facility] Cardiac catheterization stud yon 03-01-2023 Impression: APPLICATION SUPPORT LEAD of mid RCA that was previously treated [...] was anesthetized with lidocaine injected subcutaneously. 6 Jamaican sheath was advanced into the right radial artery using modified Seldinger technique. Verapamil was administered through the sheath. Patient was anticoagulated with IV heparin. Left and right coronary angiograms were performed with 6 Jamaican 3.5 EBU & a 5 Jamaican JR4 catheters respectively. 5 Jamaican Pig tail catheter was advanced across the [...] stenosed. Diagnostic coronary angiography shows positive for APPLICATION SUPPORT LEAD. The lesion was previously treated using a [...] PAF on Eliquis who presents for outpatient [facility] given angina with known CAD. Hemodynamics Interpretation LVEDP: 22 mmHg No significant aortic gradient Cath Recommendations Patient management should include: Aggressive medical management and continue with current meds. Will medically manage angina [place] The following segments are akinetic: basilar inferior. The following segments are normal: mid anterior, mid inferior, basilar anterior, apical anterior and apical inferior. CV CPACS [facility] ECG 12 lead - CLINIC PERFORM EDon 02-23-2023 Sinus Rhythm ABNORMAL Inferior myocardial infarction [facility] Basophil percentageon 2022 Bilirubin [Mass/Vol] 0.90 mg/dL 0.20-1.00 [facility] Comment on above: For patients on eltr ombopag therapy, use of Dim[place] TBIL is not recommended. Chloride [Moles/Vol] 111 mmol/L 98-107 [facility] Cholesterol [Mass/Vol] 135 mg/dL <200 [facility] Comment on above: <200 mg/dL Desirable 200-240 mg/dL Borderline >240 mg/dL High Risk Glucose [Mass/Vol] 153 mg/dL 74-106 [facility] Comment on above: Fasting Glucose resu lt greater than or equal to 126 mg/dL suggests DIABETES MELLITUS per A.D.A. criteria. Potassium [Moles/Vol] 3.9 mmol/L 3.5-5.1 [facility] Protein [Mass/Vol] 7.3 g/dL 6.4-8.2 [facility] Sodium [Moles/Vol] 142 mmol/L 136-145 [facility] Triglyceride [Mass/Vol] 190 mg/dL <199 [facility] Comment on above: The drugs N-Acetylcy steine and Metamizole may falsely depress this assay.Serum Triglycerides Reference Interval Normal <150 mg/dL Borderline high 150 - 199 mg/dL High 200 - 499 mg/dL Very High > or = 500 mg/dL Laboratory - Chemistry and C hemistry - challengeon 02-19-2023 ALP [Catalytic activity/Vol] 95 U/L 45-117 [facility] ALT [Catalytic activity/Vol] 34 U/L 16-61 [facility] CO2 [Moles/Vol] 27.0 mmol/L 21.0-32.0 [facility] Globulin (S) [Mass/Vol] 3.7 g/dL 2.2-4.2 [facility] Urea nitrogen/Creatinine [Mass ratio] 11.4 mg/mg 10-20 [facility] No Panel Informationon 02-19 Estimated GFR (MDRD) Amer 57 mL/min >60 [facility] Comment on above: GFR Calc Estimated GFR (MDRD) Non-Af Amer 47 mL/min >60 [facility] Comment on above: Non- GFR Calc Serum or plasma albumin renu urement (mass/volume)on 02-19-2023 Albumin [Mass/Vol] 3.6 g/dL 3.2-5.0 [facility] Serum or plasma albumin/glob ulin mass ratioon 02-19-2023 Albumin/Globulin [Mass ratio] 1.0 {ratio} 0.9-2.4 [facility] Serum or plasma calcium renu urement (mass/volume)on 02-19-2023 Calcium [Mass/Vol] 8.6 mg/dL 8.5-10.1 [facility] Serum or plasma cholesterol in HDL measurement (mass/volume)on 02-19-2023 Cholesterol in HDL [Mass/Vol] 47 mg/dL >40 [facility] Comment on above: The drugs N-Acetylcy steine and Metamizole may falsely depress this assay. Reference Range HDL <40 mg/dL Low HDL Cholesterol HDL >or= 60 mg/dL High HDL Cholesterol Serum or plasma cholesterol in VLDL measurement (mass/volume)on 02-19-2023 Cholesterol in VLDL [Mass/Vol] 38 mg/dL 5-40 [facility] Serum or plasma creatinine m easurement (mass/volume)on 02-19-2023 Creatinine [Mass/Vol] 1.58 mg/dL 0.70-1.30 [facility] Comment on above: The validity of the calculated GFR & GFRAA in patients over 70 years has not been determined. Clinical correlation is essential. Serum or plasma low density lipoprotein (LDL) cholesterol measurement (mass/volume)on 02-19-2023 Cholesterol in LDL [Mass/Vol] 50 mg/dL 0-130 [facility] Serum or plasma urea nitroge n measurement (mass/volume)on 02-19-2023 Urea nitrogen [Mass/Vol] 18 mg/dL 7-18 [facility] Thin prep Papanicolaou smear with manual screeningon 02-19-2023 Thin prep Papanicolaou smear with manual screening 18 U/L 15-37 [facility] Thin prep Papanicolaou smear with manual screening 4 5-15 [facility] Absolute lymphocyte countOrd ered By: Finn Ferrell on 02-05-2023 Lymphocytes Auto (Unsp spec) [#/Vol] 1.13 10*3/uL 0.83-4.51 [facility] Basophil percentageOrdered B y: Finn Ferrell on 02-05-2023 Basophil percentage 0-5 SEEN /hpf 0-5 [facility] Basophils/100 WBC (Bld) 0.6 % 0-1 [facility] Bilirubin [Mass/Vol] 0.90 mg/dL 0.20-1.00 [facility] Comment on above: For patients on eltr ombopag therapy, use of [place] TBIL is not recommended. Chloride [Moles/Vol] 108 mmol/L 98-107 [facility] Cholesterol [Mass/Vol] 137 mg/dL <200 [facility] Comment on above: <200 mg/dL Desirable 200-240 mg/dL Borderline >240 mg/dL High Risk Eosinophils/100 WBC (Bld) 1.4 % 0-5 [facility] Glucose [Mass/Vol] 109 mg/dL 74-106 [facility] Comment on above: Fasting Glucose resu lt from 100 to 125 mg/dL suggests IMPAIRED HOMEOSTASIS per A.D.A. criteria. Neutrophils (Bld) [#/Vol] 6.1 10*3/uL 2.0-7.7 [facility] Neutrophils/100 WBC (Bld) 76.4 % 47-70 [facility] Potassium [Moles/Vol] 4.6 mmol/L 3.5-5.1 [facility] Protein [Mass/Vol] 7.5 g/dL 6.4-8.2 [facility] Sodium [Moles/Vol] 138 mmol/L 136-145 [facility] Triglyceride [Mass/Vol] 204 mg/dL <199 [facility] Comment on above: The drugs N-Acetylcy steine and Metamizole may falsely depress this assay.Serum Triglycerides Reference Interval Normal <150 mg/dL Borderline high 150 - 199 mg/dL High 200 - 499 mg/dL Very High > or = 500 mg/dL WBC (Bld) [#/Vol] 8.0 10*3/uL 4.4-11.0 [facility] Bilirubin Test strip Ql (U)O rdered By: Finn Ferrell on 02-05-2023 Bilirubin Ql (U) Negative Negative [facility] Blood erythrocytes count (nu mber/volume)Ordered By: Finn Ferrell on 02-05-2023 RBC (Bld) [#/Vol] 3.82 10*6/uL 4.6-6.2 [facility] Blood hemoglobin measurement (mass/volume)Ordered By: Finn Ferrell on 02-05-2023 Hemoglobin (Bld) [Mass/Vol] 11.5 g/dL 13.0-16.5 [facility] Blood lymphocytes/100 leukoc ytesOrdered By: Finn Ferrell on 02-05-2023 Lymphocytes/100 WBC (Bld) 14.2 % 19-41 [facility] Blood monocytes/100 leukocyt esOrdered By: Finn Ferrell on 02-05-2023 Monocytes/100 WBC (Bld) 6.9 % 0-10 [facility] Blood platelet mean volumeOr dered By: Finn Ferrell on 02-05-2023 Platelet mean volume (Bld) [Entitic vol] 9.4 fL 6.2-12.0 [facility] Determination of erythrocyte mean corpuscular volume (MCV)Ordered By: Finn Ferrell on 02-05-2023 MCV (RBC) [Entitic vol] 94.0 fL 80-94 [facility] Hematocrit Auto (Bld) [Volum e fraction]Ordered By: Finn Ferrell on 02-05-2023 Hematocrit (Bld) [Volume fraction] 35.9 % 40-54 [facility] Iron measurement (mass/mass) Ordered By: Finn Ferrell on 02-05-2023 Iron (Unsp spec) [Mass/Mass] 70 ug/dL 65-175 [facility] Ketones Test strip Ql (U)Ord ered By: Finn Ferrell on 02-05-2023 Ketones Ql (U) Negative Negative [facility] Laboratory - Chemistry and C hemistry - challengeOrdered By: Finn Ferrell on 02-05-2023 ALP [Catalytic activity/Vol] 91 U/L 45-117 [facility] ALT [Catalytic activity/Vol] 30 U/L 16-61 [facility] CO2 [Moles/Vol] 25.0 mmol/L 21.0-32.0 [facility] Cobalamin (Vitamin B12) [Mass/Vol] 359 pg/mL 211-911 [facility] Globulin (S) [Mass/Vol] 3.9 g/dL 2.2-4.2 [facility] Magnesium [Mass/Vol] 2.4 mg/dL 1.6-2.6 [facility] Urea nitrogen/Creatinine [Mass ratio] 21.1 mg/mg 10-20 [facility] Laboratory - Hematology and Cell countsOrdered By: Finn Ferrell on 02-05-2023 Erythrocyte distribution width (RBC) [Entitic vol] 48.9 fL 35.1-43.9 [facility] Erythrocyte distribution width (RBC) [Ratio] 14.3 % 11.6-14.6 [facility] Immature granulocytes/100 WBC (Bld) 0.500 % 0.0-0.9 [facility] Comment on above: IG% - Immature Granu locytes (promyelocytes, myelocytes and metamyelocytes) > 1% indicates that a LEFT SHIFT is Present. MCH (RBC) [Entitic mass] 30.1 pg 27.0-32.0 [facility] Nucleated RBC/100 WBC (Bld) [Ratio] 0 % 0-5 [facility] MCHC Auto (RBC) [Mass/Vol]Or dered By: Finn Ferrell on 02-05-2023 MCHC (RBC) [Mass/Vol] 32.0 g/dL 32-36 [facility] Mucus LM Ql (Urine sed)Order ed By: Finn Ferrell on 02-05-2023 Mucus Ql (Urine sed) 0 SEEN /hpf [facility] Nitrite Test strip Ql (U)Ord ered By: Finn Ferrell on 02-05-2023 Nitrite Ql (U) Negative Negative [facility] No Panel InformationOrdered By: Finn Ferrell on 02-05-2023 Estimated GFR (MDRD) Amer 52 mL/min >60 [facility] Comment on above: GFR Calc Estimated GFR (MDRD) Non-Af Amer 43 mL/min >60 [facility] Comment on above: Non- GFR Calc Total Iron Binding Capacity 296 ug/dL 250-450 [facility] Vitamin D 25-Hydroxy 36.4 ng/mL [facility] Comment on above: Vitamin D 25(OH) Sta tus Range Deficiency <20 ng/mL (50nmol/L) Insufficiency 20 - 30 ng/mL (50 - 75 nmol/L) Sufficiency 30 - 100 ng/mL (75 - 250 nmol/L) Toxicity >100 ng/mL (>250 nmol/L) Platelets bldOrdered By: Benedicto Ferrell on 02-05-2023 Platelets (Bld) [#/Vol] 267 10*3/uL 150-450 [facility] Protein Test strip Ql (U)Ord ered By: Finn Ferrell on 02-05-2023 Protein Ql (U) Negative Negative [facility] Serum or plasma albumin renu urement (mass/volume)Ordered By: Finn Ferrell on 02-05-2023 Albumin [Mass/Vol] 3.6 g/dL 3.2-5.0 [facility] Serum or plasma albumin/glob ulin mass ratioOrdered By: Finn Ferrell on 02-05-2023 Albumin/Globulin [Mass ratio] 0.9 {ratio} 0.9-2.4 [facility] Serum or plasma calcium renu urement (mass/volume)Ordered By: Finn Ferrell on 02-05-2023 Calcium [Mass/Vol] 9.0 mg/dL 8.5-10.1 [facility] Serum or plasma cholesterol in HDL measurement (mass/volume)Ordered By: Finn Ferrell on 02-05-2023 Cholesterol in HDL [Mass/Vol] 48 mg/dL >40 [facility] Comment on above: The drugs N-Acetylcy steine and Metamizole may falsely depress this assay. Reference Range HDL <40 mg/dL Low HDL Cholesterol HDL >or= 60 mg/dL High HDL Cholesterol Serum or plasma cholesterol in VLDL measurement (mass/volume)Ordered By: Finn Ferrell on 02-05-2023 Cholesterol in VLDL [Mass/Vol] 41 mg/dL 5-40 [facility] Serum or plasma creatinine m easurement (mass/volume)Ordered By: Finn Ferrell on 02-05-2023 Creatinine [Mass/Vol] 1.71 mg/dL 0.70-1.30 [facility] Comment on above: The validity of the calculated GFR & GFRAA in patients over 70 years has not been determined. Clinical correlation is essential. Serum or plasma ferritin ellen surement (mass/volume)Ordered By: Finn Ferrell on 02-05-2023 Ferritin [Mass/Vol] 405 ng/mL 26-388 [facility] Serum or plasma folate measu rement (mass/volume)Ordered By: Finn Ferrell on 02-05-2023 Folate [Mass/Vol] 9.20 ng/mL 3.1-55.4 [facility] Serum or plasma low density lipoprotein (LDL) cholesterol measurement (mass/volume)Ordered By: Finn Ferrell on 02-05-2023 Cholesterol in LDL [Mass/Vol] 48 mg/dL 0-130 [facility] Serum or plasma urea nitroge n measurement (mass/volume)Ordered By: Finn Ferrell on 02-05-2023 Urea nitrogen [Mass/Vol] 36 mg/dL 7-18 [facility] Squamous epithelial cells de tection in urine sediment by light microscopyOrdered By: Finn Ferrell on 02-05-2023 Epithelial cells.squamous LM Ql (Urine sed) 0 SEEN /hpf 0-5 [facility] Thin prep Papanicolaou smear with manual screeningOrdered By: Finn Ferrell on 02-05-2023 Thin prep Papanicolaou smear with manual screening 17 U/L 15-37 [facility] Thin prep Papanicolaou smear with manual screening 5 5-15 [facility] Urine blood detectionOrdered By: Finn Ferrell on 02-05-2023 RBC Ql (U) Negative Negative [facility] RBC Ql (U) 0 SEEN /hpf 0-5 [facility] Urine clarityOrdered By: Benedicto Ferrell on 02-05-2023 Clarity (U) Clear Clear [facility] Urine color determinationOrd ered By: Finn Ferrell on 02-05-2023 Color (U) Yellow Yellow [facility] Urine glucose detectionOrder ed By: Finn Ferrell on 02-05-2023 Glucose Ql (U) Normal mg/dl Normal [facility] Urine leukocyte esterase det ection by dipstickOrdered By: Finn Ferrell on 02-05-2023 Leukocyte esterase Test strip Ql (U) 25 /ul Negative [facility] Urine pHOrdered By: Finn vaughn on 02-05-2023 pH (U) 5.0 [pH] 5.0 - 8.0 [facility] Urine sediment bacteria coun t by microscopy (number/high power field)Ordered By: Finn Ferrell on 02-05-2023 Bacteria LM.HPF (Urine sed) [#/Area] 0 /[HPF] None Seen [facility] Urine specific gravity measu rementOrdered By: Finn Ferrell on 02-05-2023 Specific gravity (U) [Rel density] 1.010 1.002-1.03 0 [facility] Urobilinogen Auto test strip Ql (U)Ordered By: Finn Ferrell on 02-05-2023 Urobilinogen Ql (U) Normal mg/dl Normal [facility] Whole blood hemoglobin A1c/t otal hemoglobin ratio (mass fraction)Ordered By: Finn Ferrell on 02-05-2023 HbA1c (Bld) [Mass fraction] 5.3 % 3.8-5.6 [facility] Comment on above: Normal < 5.7 % Predi abetic 5.7 - 6.4 % Diabetic >or= 6.5 % Please note range changes. Absolute lymphocyte counton 01-27-2023 Lymphocytes Auto (Unsp spec) [#/Vol] 1.37 10*3/uL 0.83-4.51 [facility] Basophil percentageon 2022 Basophils/100 WBC (Bld) 0.4 % 0-1 [facility] Chloride [Moles/Vol] 109 mmol/L 98-107 [facility] Eosinophils/100 WBC (Bld) 1.1 % 0-5 [facility] Glucose [Mass/Vol] 135 mg/dL 74-106 [facility] Comment on above: Fasting Glucose resu lt greater than or equal to 126 mg/dL suggests DIABETES MELLITUS per A.D.A. criteria. Neutrophils (Bld) [#/Vol] 6.3 10*3/uL 2.0-7.7 [facility] Neutrophils/100 WBC (Bld) 74.3 % 47-70 [facility] Potassium [Moles/Vol] 4.4 mmol/L 3.5-5.1 [facility] Sodium [Moles/Vol] 140 mmol/L 136-145 [facility] WBC (Bld) [#/Vol] 8.5 10*3/uL 4.4-11.0 [facility] Blood erythrocytes count (nu mber/volume)on 01-27-2023 RBC (Bld) [#/Vol] 3.53 10*6/uL 4.6-6.2 [facility] Blood hemoglobin measurement (mass/volume)on 01-27-2023 Hemoglobin (Bld) [Mass/Vol] 10.9 g/dL 13.0-16.5 [facility] Blood lymphocytes/100 leukoc yteson 01-27-2023 Lymphocytes/100 WBC (Bld) 16.2 % 19-41 [facility] Blood monocytes/100 leukocyt eson 01-27-2023 Monocytes/100 WBC (Bld) 7.6 % 0-10 [facility] Blood platelet mean volumeon 01-27-2023 Platelet mean volume (Bld) [Entitic vol] 9.1 fL 6.2-12.0 [facility] Determination of erythrocyte mean corpuscular volume (MCV)on 01-27-2023 MCV (RBC) [Entitic vol] 91.8 fL 80-94 [facility] Hematocrit Auto (Bld) [Volum e fraction]on 01-27-2023 Hematocrit (Bld) [Volume fraction] 32.4 % 40-54 [facility] Laboratory - Chemistry and C hemistry - challengeon 01-27-2023 CO2 [Moles/Vol] 26.0 mmol/L 21.0-32.0 [facility] Urea nitrogen/Creatinine [Mass ratio] 22.3 mg/mg 10-20 [facility] Laboratory - Hematology and Cell countson 01-27-2023 Erythrocyte distribution width (RBC) [Entitic vol] 48.2 fL 35.1-43.9 [facility] Erythrocyte distribution width (RBC) [Ratio] 14.4 % 11.6-14.6 [facility] Immature granulocytes/100 WBC (Bld) 0.400 % 0.0-0.9 [facility] Comment on above: IG% - Immature Granu locytes (promyelocytes, myelocytes and metamyelocytes) > 1% indicates that a LEFT SHIFT is Present. MCH (RBC) [Entitic mass] 30.9 pg 27.0-32.0 [facility] Nucleated RBC/100 WBC (Bld) [Ratio] 0 % 0-5 [facility] MCHC Auto (RBC) [Mass/Vol]on 01-27-2023 MCHC (RBC) [Mass/Vol] 33.6 g/dL 32-36 [facility] No Panel Informationon 01-27 Estimated GFR (MDRD) Amer 46 mL/min >60 [facility] Comment on above: GFR Calc Estimated GFR (MDRD) Non-Af Amer 38 mL/min >60 [facility] Comment on above: Non- GFR Calc Platelets bldon 01-27-2023 Platelets (Bld) [#/Vol] 228 10*3/uL 150-450 [facility] Serum or plasma calcium renu urement (mass/volume)on 01-27-2023 Calcium [Mass/Vol] 9.0 mg/dL 8.5-10.1 [facility] Serum or plasma creatinine m easurement (mass/volume)on 01-27-2023 Creatinine [Mass/Vol] 1.88 mg/dL 0.70-1.30 [facility] Comment on above: The validity of the calculated GFR & GFRAA in patients over 70 years has not been determined. Clinical correlation is essential. Serum or plasma urea nitroge n measurement (mass/volume)on 01-27-2023 Urea nitrogen [Mass/Vol] 42 mg/dL 7-18 [facility] Thin prep Papanicolaou smear with manual screeningon 01-27-2023 Thin prep Papanicolaou smear with manual screening 5 5-15 [facility] Basic Metabolic Panel ([facility] )on 12-31-2022 Calcium [Mass/Vol] 9.5 mg/dL 8.6 - 10. 3 mg/dL [facility] Chloride [Moles/Vol] 106 mmol/L 98 - 11 0 mmol/L [facility] CO2 [Moles/Vol] 23 mmol/L 20 - 32 mmol/L [facility] Creatinine [Mass/Vol] 1.57 mg/dL High 0.70 - 1.35 mg/dL [facility] GFR/1.73 sq M.predicted among non-blacks MDRD (S/P/Bld) [Vol rate/Area] 48 mL/min/{1.73_m2} Low > OR = 60 mL/min/1.7 3m2 [facility] Glucose [Mass/Vol] 111 mg/dL High 65 - 99 mg/dL [facility] Comment on above: Fasting reference interval For someone without known diabetes, a glucose value between 100 and 125 mg/dL is consistent with prediabetes and should be confirmed with a follow-up test. Interpretation and review of laboratory results Abnormal [facility] Potassium [Moles/Vol] 4.9 mmol/L 3.5 - 5.3 mmol/L [facility] Sodium [Moles/Vol] 138 mmol/L 135 - 146 mmol/L [facility] Urea nitrogen [Mass/Vol] 30 mg/dL High 7 - 25 mg/dL [facility] Urea nitrogen/Creatinine [Mass ratio] 19 mg/mg [facility] Basophil percentageOrdered B y: Cecelia Koehler on 12-14-2022 Chloride [Moles/Vol] 108 mmol/L 98-107 [facility] Glucose [Mass/Vol] 106 mg/dL 74-106 [facility] Comment on above: Fasting Glucose resu lt from 100 to 125 mg/dL suggests IMPAIRED HOMEOSTASIS per A.D.A. criteria. Potassium [Moles/Vol] 4.0 mmol/L 3.5-5.1 [facility] Sodium [Moles/Vol] 140 mmol/L 136-145 [facility] Laboratory - Chemistry and C hemistry - challengeOrdered By: Cecelia Koehler on 12-14-2022 CO2 [Moles/Vol] 27.0 mmol/L 21.0-32.0 [facility] Urea nitrogen/Creatinine [Mass ratio] 17.6 mg/mg 10-20 [facility] No Panel InformationOrdered By: Cecelia Koehler on 12-14-2022 Estimated GFR (MDRD) Amer 59 mL/min >60 [facility] Comment on above: GFR Calc Estimated GFR (MDRD) Non-Af Amer 49 mL/min >60 [facility] Comment on above: Non- GFR Calc Serum or plasma calcium renu urement (mass/volume)Ordered By: Cecelia Koehler on 12-14-2022 Calcium [Mass/Vol] 9.2 mg/dL 8.5-10.1 [facility] Serum or plasma creatinine m easurement (mass/volume)Ordered By: Cecelia Koehler on 12-14-2022 Creatinine [Mass/Vol] 1.53 mg/dL 0.70-1.30 [facility] Comment on above: The validity of the calculated GFR & GFRAA in patients over 70 years has not been determined. Clinical correlation is essential. Serum or plasma urea nitroge n measurement (mass/volume)Ordered By: Cecelia Koehler on 12-14-2022 Urea nitrogen [Mass/Vol] 27 mg/dL 7-18 [facility] Thin prep Papanicolaou smear with manual screeningOrdered By: Cecelia Koehler on 12-14-2022 Thin prep Papanicolaou smear with manual screening 5 5-15 [facility] Basic metabolic 1998 panelon 12-08-2022 Anion gap [Moles/Vol] 8 mmol/L 3 - 13 mmol/L [facility] Calcium [Mass/Vol] 8.5 mg/dL 8.4 - 10. 4 mg/dL [facility] Chloride [Moles/Vol] 106 mmol/L 98 - 10 7 mmol/L [facility] CO2 [Moles/Vol] 19 mmol/L Low 22 - 30 mmol/L [facility] Creatinine [Mass/Vol] 1.65 mg/dL High 0.66 - 1.25 mg/dL [facility] GFR/1.73 sq M.predicted MDRD (S/P/Bld) [Vol rate/Area] 45.2 mL/min/{1.73_m2} Low - PINF [facility] Comment on above: Calculation based on the Chronic Kidney Disease Epidemiology Collaboration (CKD-EPI) equation refit without adjustment for race Glucose [Mass/Vol] 129 mg/dL High 70 - 100 mg/dL [facility] Potassium [Moles/Vol] 4.5 mmol/L 3.5 - 5.1 mmol/L [facility] Sodium [Moles/Vol] 134 mmol/L Low 135 - 145 mmol/L [facility] Urea nitrogen [Mass/Vol] 38 mg/dL High 9 - 20 mg/dL [facility] CBC panel Auto (Bld)Ordered By: Mallika Santiago on 12-08-2022 Erythrocyte distribution width (RBC) [Ratio] 15.0 % High 11.5 - 14.5 % [facility] Hematocrit (Bld) [Volume fraction] 36.0 % Low 40.0 - 52.0 % [facility] Hemoglobin (Bld) [Mass/Vol] 12.1 g/dL Low 13.0 - 18.0 g/dL [facility] Interpretation and review of laboratory results Abnormal [facility] MCH (RBC) [Entitic mass] 30.0 pg 26.0 - 34.0 pg [facility] MCHC (RBC) [Mass/Vol] 33.7 % 32.0 - 36.0 % [facility] MCV (RBC) [Entitic vol] 89.1 fL 80.0 - 98.0 fL [facility] Platelet mean volume (Bld) [Entitic vol] 7.5 fL 7.4 - 12.4 fL [facility] Platelets (Bld) [#/Vol] 186 10*3/uL 140 - 440 10*3/uL [facility] RBC (Bld) [#/Vol] 4.04 10*6/uL Low 4.40 - 5.90 10*6/uL [facility] WBC (Bld) [#/Vol] 6.9 10*3/uL 3.6 - 10.7 10*3/uL [facility] Laboratory - Chemistry and C hemistry - challengeon 12-08-2022 CRP [Mass/Vol] 26.3 mg/L High NINF - 10.0 mg/L [facility] No Panel Informationon 12-08 Interpretation and review of laboratory results Abnormal [facility] CBC panel Auto (Bld)Ordered By: Gibran Valverde on 12-07-2022 Erythrocyte distribution width (RBC) [Ratio] 15.1 % High 11.5 - 14.5 % [facility] Hematocrit (Bld) [Volume fraction] 34.9 % Low 40.0 - 52.0 % [facility] Hemoglobin (Bld) [Mass/Vol] 11.9 g/dL Low 13.0 - 18.0 g/dL [facility] Interpretation and review of laboratory results Abnormal [facility] MCH (RBC) [Entitic mass] 30.0 pg 26.0 - 34.0 pg [facility] MCHC (RBC) [Mass/Vol] 34.1 % 32.0 - 36.0 % [facility] MCV (RBC) [Entitic vol] 88.2 fL 80.0 - 98.0 fL [facility] Platelet mean volume (Bld) [Entitic vol] 8.0 fL 7.4 - 12.4 fL [facility] Platelets (Bld) [#/Vol] 213 10*3/uL 140 - 440 10*3/uL [facility] RBC (Bld) [#/Vol] 3.95 10*6/uL Low 4.40 - 5.90 10*6/uL [facility] WBC (Bld) [#/Vol] 9.4 10*3/uL 3.6 - 10.7 10*3/uL [facility] Comprehensive metabolic 1998 panelon 12-07-2022 Albumin [Mass/Vol] 3.9 g/dL 3.5 - 5.0 g/dL [facility] ALP [Catalytic activity/Vol] 76 U/L 38 - 126 U/L [facility] ALT [Catalytic activity/Vol] 39 U/L 0 - 49 U/L [facility] Anion gap [Moles/Vol] 7 mmol/L 3 - 13 mmol/L [facility] AST [Catalytic activity/Vol] 30 U/L 15 - 46 U/L [facility] Bilirubin [Mass/Vol] 1.2 mg/dL 0.2 - 1 .3 mg/dL [facility] Calcium [Mass/Vol] 8.6 mg/dL 8.4 - 10. 4 mg/dL [facility] Chloride [Moles/Vol] 106 mmol/L 98 - 10 7 mmol/L [facility] CO2 [Moles/Vol] 24 mmol/L 22 - 30 mmol/L [facility] Creatinine [Mass/Vol] 2.12 mg/dL High 0.66 - 1.25 mg/dL [facility] GFR/1.73 sq M.predicted MDRD (S/P/Bld) [Vol rate/Area] 33.5 mL/min/{1.73_m2} Low - PINF [facility] Comment on above: Calculation based on the Chronic Kidney Disease Epidemiology Collaboration (CKD-EPI) equation refit without adjustment for race Glucose [Mass/Vol] 104 mg/dL High 70 - 100 mg/dL [facility] Potassium [Moles/Vol] 4.8 mmol/L 3.5 - 5.1 mmol/L [facility] Protein [Mass/Vol] 7.2 g/dL 6.3 - 8.2 g/dL [facility] Sodium [Moles/Vol] 137 mmol/L 135 - 145 mmol/L [facility] Urea nitrogen [Mass/Vol] 36 mg/dL High 9 - 20 mg/dL [facility] Creatinine (U) [Mass/Vol]on 12-07-2022 CREATININE, URINE 173.4 mg/dL No Range [facility] Laboratory - Chemistry and C hemistry - challengeon 12-07-2022 Sodium (24H U) [Mass/Vol] 22 mmol/L Low 30 - 90 mmol/L [facility] Troponin I.cardiac [Mass/Vol] 0.013 ng/mL 0.000 - 0.034 ng/mL [facility] Laboratory - Urinalysison Protein (U) [Mass/Vol] mg/dL 0 - 1 2 mg/dL [facility] Lipid 1996 panelon 3 Cholesterol [Mass/Vol] 251 mg/dL High NINF - 200 mg/dL [facility] Cholesterol in HDL [Mass/Vol] 37 mg/dL Low 40 - 60 mg/dL [facility] Cholesterol in LDL [Mass/Vol] 169 mg/dL High 0 - <100 [facility] Cholesterol.total/Chol esterol in HDL [Mass ratio] 7 {ratio} [facility] Comment on above: Ref Range: < 3 Low Risk for CHD 3-6 Mod Risk for CHD > 6 High Risk for CHD Triglyceride [Mass/Vol] 227 mg/dL High NINF - 150 mg/dL [facility] No Panel Informationon 12-07 Interpretation and review of laboratory results Abnormal [facility] Interpretation and review of laboratory results Normal [facility] Sinus rhythm 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 P [place] 35 degrees [facility] OR Interval 174 ms [facility] QRS [place] 25 degrees [facility] QRSD Interval 110 ms [facility] QT Interval 385 ms [facility] QTC Interval 445 ms [facility] T Wave [place] 19 degrees [facility] Sinus rhythm Inferior infarct, old Electronically Signed On 12-07-2022 11:24:10 EDT by Stephan Shelley MD - 12/07/2022 IMPRESSION: Sinus rhythm Inferior infarct, old Electronically Signed On 12-07-2022 11:24:[address] [facility] Interpretation and review of laboratory results Abnormal [facility] No Panel InformationOrdered By: Stephan Crawley on 12-07-2022 P [place] 33 degrees [employer] Work Phone: OR Interval 181 ms [employer] Work Phone: QRS [place] 6 degrees [employer] Work Phone: QRSD Interval 116 ms [employer] Work Phone: QT Interval 389 ms [employer] Work Phone: QTC Interval 457 ms [employer] Work Phone: T Wave [place] 159 degrees [employer] Work Phone: [employer] Work Phone: Respiratory pathogens DNA an d RNA panel HARIKA+probe (Nph)on 12-07-2022 Adenovirus Not detected Not Detected [facility] B. pertussis DNA HARIKA+probe Ql (Unsp spec) Not detected Not Detected [facility] [employer] Bordetella parapertussis Not detected Not Detected [facility] Chlamydia pneumoniae Not detected Not Detected [facility] Coronavirus 229E Not detected Not Detected [facility] Coronavirus HKU1 Not detected Not Detected [facility] Coronavirus NL63 Not detected Not Detected [facility] Coronavirus OC43 Not detected Not Detected [facility] FLUAV RNA HARIKA+non-probe Ql (Nph) Not detected Not Detected [facility] [employer] FLUBV RNA HARIKA+non-probe Ql (Nph) Not detected Not Detected [facility] Human Metapneumovirus Not detected Not Detected [facility] Human Rhinovirus/Enterovirus Not detected Not Detected [facility] Interpretation and review of laboratory results Abnormal [facility] Mycoplasma pneumoniae Not detected Not Detected [facility] Parainfluenza 1 Not detected Not Detected [facility] Parainfluenza 2 Not detected Not Detected [facility] Parainfluenza 3 Not detected Not Detected [facility] Parainfluenza 4 Not detected Not Detected [facility] Respiratory Syncytial Virus Not detected Not Detected [facility] SARS-CoV-2 (COVID-19) RNA HARIKA+non-probe Ql (Nph) Detected Abnormal Not Detected [facility] Methodology: Multiplex PCR [facility] [employer] Troponin I.cardiac [Mass/Vol ]on 12-07-2022 Interpretation and review of laboratory results Normal [facility] Patients with high l evels of Biotin oral intake (ie >5 mg/day) may have falsely decreased Troponin levels. [facility] US Retroperitoneum limitedon 12-07-2022 Nonspecific mild cindy ateral perinephric edema. Benign appearing bilateral renal cortical cysts. Report Dictated on Electronically Signed By: Ryanne Oglesby MD Electronically Signed Date/Time: 12/07/2022 10:41 AM EDT [facility] Patient Name: SHANNON OLSON : [...] cortical cyst. Bladder is nondistended, limiting evaluation. [facility] Ryanne Oglesby M D - 12/07/2022 [...] Electronically Signed Date/Time: 12/07/2022 10:41 AM EDT [facility] Radiology Study observation (narrative) [facility] US Retroperitoneum limitedOr dered By: Ryanne Oglesby on 12-07-2022 [facility] [employer] Work Phone: Urinalysis complete panel (U )on 12-07-2022 Bilirubin Ql (U) Negative Negative mg/dL [facility] Clarity (U) Clear Clear [facility] Color (U) Light Yellow Lt. Yellow [facility] Glucose Ql (U) Normal Normal (<70) mg/dL [facility] Hemoglobin Ql (U) Negative Negative mg/dL [facility] Interpretation and review of laboratory results Normal [facility] Ketones (U) [Mass/Vol] Negative Negat lorraine mg/dL [facility] Leukocyte esterase Test strip Ql (U) Negative Negative Nevin/uL [facility] Nitrite Ql (U) Negative Negative [facility] pH (U) 5.0 [pH] 5.0 - 8.0 pH [facility] Protein (U) [Mass/Vol] Negative Negat lorraine mg/dL [facility] Specific gravity (U) [Rel density] 1.015 1.005 - 1.030 [facility] Urobilinogen (U) [Mass/Vol] Normal Normal (0-1) mg/dL [facility] Vital signsOrdered By: Alanna Crawley on 12-07-2022 Heart rate 83 /min bpm [facility] Work Phone: Vital signson 12-07-2022 Heart rate 80 /min bpm [facility] XR Chest Single viewon 12-07 1. No focal infiltra bismark. 2. Prominence of the interstitium and central pulmonary vasculature consistent with mild congestive heart failure/fluid overload. Report Dictated on Electronically Signed By: Coy Rojas MD Electronically Signed Date/Time: 12/07/2022 11:30 AM EDT [facility] Patient Name: SHANNON OLSON : [...] vasculature. A right shoulder arthroplasty is noted. [facility] Coy Rojas MD - 12/07/2022 Patient [...] Electronically Signed Date/Time: 12/07/2022 11:30 AM EDT [facility] Radiology Study observation (narrative) [facility] XR Chest Single viewOrdered By: Coy Rojas on 12-07-2022 [facility] Work Phone: Laboratory - Chemistry and C hemistry - challengeon 12-06-2022 Troponin I.cardiac [Mass/Vol] ng/mL 0.000 - 0.034 ng/mL [facility] No Panel InformationOrdered By: Kraig Bautista on 12-06-2022 Troponin I High Sensitivity 175 pg/mL 3.0-78.0 [facility] Comment on above: Critical Result(s) C alled at: 01:54:47 12/06/2022 by: MANUEL Lancaster RN ER. Results read back by same. Please Note: New Test Units and Gender Specific Reference Ranges. For more information see Policy Stat Procedure [place] High Sensitivity Troponin (TNIH) and attachments. Troponin I.cardiac [Mass/Vol ]on 12-06-2022 Interpretation and review of laboratory results Normal [facility] Patients with high l evels of Biotin oral intake (ie >5 mg/day) may have falsely decreased Troponin levels. [facility] Absolute lymphocyte countOrd ered By: Kraig Bautista on 12-05-2022 Lymphocytes Auto (Unsp spec) [#/Vol] 0.59 10*3/uL 0.83-4.51 [facility] Basophil percentageOrdered B y: Kraig Bautista on 12-05-2022 Basophils/100 WBC (Bld) 0.2 % 0-1 [facility] Chloride [Moles/Vol] 109 mmol/L 98-107 [facility] Eosinophils/100 WBC (Bld) 0.0 % 0-5 [facility] Glucose [Mass/Vol] 199 mg/dL 74-106 [facility] Comment on above: Fasting Glucose resu lt greater than or equal to 126 mg/dL suggests DIABETES MELLITUS per A.D.A. criteria. Neutrophils (Bld) [#/Vol] 14.4 10*3/uL 2.0-7.7 [facility] Neutrophils/100 WBC (Bld) 92.5 % 47-70 [facility] Potassium [Moles/Vol] 4.9 mmol/L 3.5-5.1 [facility] Sodium [Moles/Vol] 137 mmol/L 136-145 [facility] WBC (Bld) [#/Vol] 15.5 10*3/uL 4.4-11.0 [facility] Blood erythrocytes count (nu mber/volume)Ordered By: Kraig Bautista on 12-05-2022 RBC (Bld) [#/Vol] 4.21 10*6/uL 4.6-6.2 [facility] Blood hemoglobin measurement (mass/volume)Ordered By: Kraig Bautista on 12-05-2022 Hemoglobin (Bld) [Mass/Vol] 12.5 g/dL 13.0-16.5 [facility] Blood lymphocytes/100 leukoc ytesOrdered By: Kraig Bautista on 12-05-2022 Lymphocytes/100 WBC (Bld) 3.8 % 19-41 [facility] Blood manual differential co mment interpretation (narrative result)Ordered By: Kraig Bautista on 12-05-2022 Manual differential comment Jose D (Bld) [Interp] SCANNED [facility] Comment on above: LYMPHOPENIA NOTED Blood monocytes/100 leukocyt esOrdered By: Kraig Bautista on 12-05-2022 Monocytes/100 WBC (Bld) 2.4 % 0-10 [facility] Blood platelet mean volumeOr dered By: Kraig Bautista on 12-05-2022 Platelet mean volume (Bld) [Entitic vol] 9.7 fL 6.2-12.0 [facility] Determination of erythrocyte mean corpuscular volume (MCV)Ordered By: Kraig Bautista on 12-05-2022 MCV (RBC) [Entitic vol] 91.7 fL 80-94 [facility] Hematocrit Auto (Bld) [Volum e fraction]Ordered By: Kraig Bautista on 12-05-2022 Hematocrit (Bld) [Volume fraction] 38.6 % 40-54 [facility] INR in Blood by Coagulation assayOrdered By: Henrietta Quinonez on 12-05-2022 INR Coag (Bld) [Relative time] 1.0 {INR} [facility] Laboratory - Chemistry and C hemistry - challengeOrdered By: Kraig Bautista on 12-05-2022 CO2 [Moles/Vol] 23.0 mmol/L 21.0-32.0 [facility] Natriuretic peptide B (Bld) [Mass/Vol] 14.5 pg/mL 0-100 [facility] Urea nitrogen/Creatinine [Mass ratio] 17.3 mg/mg 10-20 [facility] Laboratory - Chemistry and C hemistry - challengeOrdered By: Henrietta Quinonez on 12-05-2022 Magnesium [Mass/Vol] 2.2 mg/dL 1.6-2.6 [facility] Laboratory - CoagulationOrde red By: Henrietta Quinonez on 12-05-2022 aPTT Coag (Bld) [Time] 24.1 s 24.1-36.2 [facility] PT Coag (PPP) [Time] 13.0 s 11.7-14.9 [facility] Laboratory - Hematology and Cell countsOrdered By: Kraig Bautista on 12-05-2022 Erythrocyte distribution width (RBC) [Entitic vol] 47.4 fL 35.1-43.9 [facility] Erythrocyte distribution width (RBC) [Ratio] 14.3 % 11.6-14.6 [facility] Immature granulocytes/100 WBC (Bld) 1.100 % 0.0-0.9 [facility] Comment on above: IG% - Immature Granu locytes (promyelocytes, myelocytes and metamyelocytes) > 1% indicates that a LEFT SHIFT is Present. MCH (RBC) [Entitic mass] 29.7 pg 27.0-32.0 [facility] Nucleated RBC/100 WBC (Bld) [Ratio] 0 % 0-5 [facility] MCHC Auto (RBC) [Mass/Vol]Or dered By: Kraig Bautista on 12-05-2022 MCHC (RBC) [Mass/Vol] 32.4 g/dL 32-36 [facility] No Panel InformationOrdered By: Kraig Bautista on 07-15-2023 Estimated Creatinine Clearance Calc 53.42 ml/min [facility] Estimated GFR (MDRD) Amer 57 mL/min >60 [facility] Comment on above: GFR Calc Estimated GFR (MDRD) Non-Af Amer 47 mL/min >60 [facility] Comment on above: Non- GFR Calc Platelets bldOrdered By: Gerson Bautista on 12-05-2022 Platelets (Bld) [#/Vol] 263 10*3/uL 150-450 [facility] Serum or plasma calcium renu urement (mass/volume)Ordered By: Kraig Bautista on 12-05-2022 Calcium [Mass/Vol] 9.1 mg/dL 8.5-10.1 [facility] Serum or plasma creatinine m easurement (mass/volume)Ordered By: Kraig Bautista on 12-05-2022 Creatinine [Mass/Vol] 1.56 mg/dL 0.70-1.30 [facility] Comment on above: The validity of the calculated GFR & GFRAA in patients over 70 years has not been determined. Clinical correlation is essential. Serum or plasma urea nitroge n measurement (mass/volume)Ordered By: Kraig Bautista on 12-05-2022 Urea nitrogen [Mass/Vol] 27 mg/dL 7-18 [facility] Thin prep Papanicolaou smear with manual screeningOrdered By: Kraig Bautista on 12-05-2022 Thin prep Papanicolaou smear with manual screening 5 5-15 [facility] Basic metabolic 1998 panelon 12-03-2022 Anion gap [Moles/Vol] 9 mmol/L 3 - 13 mmol/L [facility] Calcium [Mass/Vol] 9.4 mg/dL 8.4 - 10. 4 mg/dL [facility] Chloride [Moles/Vol] 105 mmol/L 98 - 10 7 mmol/L [facility] [employer] CO2 [Moles/Vol] 25 mmol/L 22 - 30 mmol/L [facility] Creatinine [Mass/Vol] 1.39 mg/dL High 0.66 - 1.25 mg/dL [facility] [employer] GFR/1.73 sq M.predicted MDRD (S/P/Bld) [Vol rate/Area] 55.6 mL/min/{1.73_m2} Low - PINF [facility] Comment on above: Calculation based on the Chronic Kidney Disease Epidemiology Collaboration (CKD-EPI) equation refit without adjustment for race Glucose [Mass/Vol] 82 mg/dL 70 - 100 mg/dL [facility] Interpretation and review of laboratory results Abnormal [facility] Potassium [Moles/Vol] 4.4 mmol/L 3.5 - 5.1 mmol/L [facility] Sodium [Moles/Vol] 139 mmol/L 135 - 145 mmol/L [facility] Urea nitrogen [Mass/Vol] 29 mg/dL High 9 - 20 mg/dL [facility] Polysomnographyon 11-27-2022 [facility] Absolute lymphocyte countOrd ered By: Adrianna Royal on 11-25-2022 Lymphocytes Auto (Unsp spec) [#/Vol] 1.49 10*3/uL 0.83-4.51 [facility] Basophil percentageOrdered B y: Adrianna Royal on 11-25-2022 Basophils/100 WBC (Bld) 0.6 % 0-1 [facility] Bilirubin [Mass/Vol] 1.10 mg/dL 0.20-1.00 [facility] Comment on above: For patients on eltr ombopag therapy, use of Dimension [place] TBIL is not recommended. Chloride [Moles/Vol] 108 mmol/L 98-107 [facility] Eosinophils/100 WBC (Bld) 1.0 % 0-5 [facility] Glucose [Mass/Vol] 123 mg/dL 74-106 [facility] Comment on above: Fasting Glucose resu lt from 100 to 125 mg/dL suggests IMPAIRED HOMEOSTASIS per A.D.A. criteria. Neutrophils (Bld) [#/Vol] 5.6 10*3/uL 2.0-7.7 [facility] Neutrophils/100 WBC (Bld) 71.7 % 47-70 [facility] Potassium [Moles/Vol] 4.4 mmol/L 3.5-5.1 [facility] Protein [Mass/Vol] 7.8 g/dL 6.4-8.2 [facility] Sodium [Moles/Vol] 138 mmol/L 136-145 [facility] WBC (Bld) [#/Vol] 7.8 10*3/uL 4.4-11.0 [facility] Blood erythrocytes count (nu mber/volume)Ordered By: Adrianna Royal on 11-25-2022 RBC (Bld) [#/Vol] 4.42 10*6/uL 4.6-6.2 [facility] Blood hemoglobin measurement (mass/volume)Ordered By: Adrianna Royal on 11-25-2022 Hemoglobin (Bld) [Mass/Vol] 13.4 g/dL 13.0-16.5 [facility] Blood lymphocytes/100 leukoc ytesOrdered By: Adrianna Royal on 11-25-2022 Lymphocytes/100 WBC (Bld) 19.0 % 19-41 [facility] Blood monocytes/100 leukocyt esOrdered By: Adrianna Royal on 11-25-2022 Monocytes/100 WBC (Bld) 6.8 % 0-10 [facility] Blood platelet mean volumeOr dered By: Adrianna Royal on 11-25-2022 Platelet mean volume (Bld) [Entitic vol] 9.6 fL 6.2-12.0 [facility] Determination of erythrocyte mean corpuscular volume (MCV)Ordered By: Adrianna Royal on 11-25-2022 MCV (RBC) [Entitic vol] 89.1 fL 80-94 [facility] Hematocrit Auto (Bld) [Volum e fraction]Ordered By: Adrianna Royal on 11-25-2022 Hematocrit (Bld) [Volume fraction] 39.4 % 40-54 [facility] Laboratory - Chemistry and C hemistry - challengeOrdered By: Adrianna Royal on 11-25-2022 ALP [Catalytic activity/Vol] 104 U/L 45-117 [facility] ALT [Catalytic activity/Vol] 38 U/L 16-61 [facility] CO2 [Moles/Vol] 25.0 mmol/L 21.0-32.0 [facility] Globulin (S) [Mass/Vol] 4.1 g/dL 2.2-4.2 [facility] Urea nitrogen/Creatinine [Mass ratio] 18.4 mg/mg 10-20 [facility] Laboratory - Hematology and Cell countsOrdered By: [facility] on 11-25-2022 Erythrocyte distribution width (RBC) [Entitic vol] 44.2 fL 35.1-43.9 [facility] Erythrocyte distribution width (RBC) [Ratio] 13.5 % 11.6-14.6 [facility] Immature granulocytes/100 WBC (Bld) 0.900 % 0.0-0.9 [facility] Comment on above: IG% - Immature Granu locytes (promyelocytes, myelocytes and metamyelocytes) > 1% indicates that a LEFT SHIFT is Present. MCH (RBC) [Entitic mass] 30.3 pg 27.0-32.0 [facility] Nucleated RBC/100 WBC (Bld) [Ratio] 0 % 0-5 [facility] MCHC Auto (RBC) [Mass/Vol]Or dered By: Adrianna Royal on 11-25-2022 MCHC (RBC) [Mass/Vol] 34.0 g/dL 32-36 [facility] No Panel InformationOrdered By: Adrianna Royal on 11-25-2022 Estimated GFR (MDRD) Amer 61 mL/min >60 [facility] Comment on above: GFR Calc Estimated GFR (MDRD) Non-Af Amer 51 mL/min >60 [facility] Comment on above: Non- GFR Calc Thyroid Stimulating Hormone (TSH) 1.20 uIU/mL 0.358-3.74 [facility] Vitamin D 25-Hydroxy 27.8 ng/mL [facility] Comment on above: Vitamin D 25(OH) Sta tus Range Deficiency <20 ng/mL (50nmol/L) Insufficiency 20 - 30 ng/mL (50 - 75 nmol/L) Sufficiency 30 - 100 ng/mL (75 - 250 nmol/L) Toxicity >100 ng/mL (>250 nmol/L) Platelets bldOrdered By: Courtney Royal on 11-25-2022 Platelets (Bld) [#/Vol] 242 10*3/uL 150-450 [facility] Serum or plasma albumin renu urement (mass/volume)Ordered By: Adrianna Royal on 11-25-2022 Albumin [Mass/Vol] 3.7 g/dL 3.2-5.0 [facility] Serum or plasma albumin/glob ulin mass ratioOrdered By: Adrianna Royal on 11-25-2022 Albumin/Globulin [Mass ratio] 0.9 {ratio} 0.9-2.4 [facility] Serum or plasma calcium renu urement (mass/volume)Ordered By: Adrianna Genny on 11-25-2022 Calcium [Mass/Vol] 9.1 mg/dL 8.5-10.1 [facility] Serum or plasma creatinine m easurement (mass/volume)Ordered By: Adrianna Genny on 11-25-2022 Creatinine [Mass/Vol] 1.47 mg/dL 0.70-1.30 [facility] Comment on above: The validity of the calculated GFR & GFRAA in patients over 70 years has not been determined. Clinical correlation is essential. Serum or plasma urea nitroge n measurement (mass/volume)Ordered By: Adrianna Genny on 11-25-2022 Urea nitrogen [Mass/Vol] 27 mg/dL 7-18 [facility] Thin prep Papanicolaou smear with manual screeningOrdered By: [facility] on 11-25-2022 Thin prep Papanicolaou smear with manual screening 15 U/L 15-37 [facility] Thin prep Papanicolaou smear with manual screening 5 5-15 [facility] US Heart TransthoracicOrdere d By: Stephan Crawley on 11-18-2022 Aortic Sinus Valsalva 3.1 cm [employer] Phone: Aortic Sinus Valsalva Index 1.21 cm/m2 [facility] Phone: Ascending Aorta 4.5 cm [facility] Phone: [phone] Ascending Aorta Index 1.76 cm/m2 [employer] Work Phone: [phone] AV Area by Peak Velocity 2.1 cm2 [facility] Phone: [phone] AV Area by VTI 2.2 cm2 [facility] Phone: [phone] AV Mean Gradient 6 mmHg [facility] Phone: [phone] AV Mean Velocity 1.1 m/s [facility] Phone: [phone] AV Peak Gradient 9 mmHg [facility] Phone: AV Peak Velocity 1.5 m/s [facility] Phone: AV Velocity Ratio 0.67 [facility] Work Phone: AV VTI 31.8 cm [facility] [employer] Work Phone: GRACE/BSA Peak Velocity 0.8 cm2/m2 [facility] Work Phone: GRACE/BSA VTI 0.9 cm2/m2 [facility] [employer] Work Phone: Fractional Shortening 2D 31 % 28 - 44 % [facility] [employer] Work Phone: Global Longitudinal Strain -11.5 % [facility] [employer] Work Phone: Interpretation and review of laboratory results Abnormal [facility] [employer] Work Phone: IVC Diameter 2.2 cm [facility] [employer] Work Phone: IVSd 1.7 cm Abnormal 0.6 - 1.0 cm [facility] [employer] Work Phone: LA Diameter 4.9 cm [facility] [employer] Work Phone: LA Size Index 1.91 cm/m2 [facility] [employer] Work Phone: LA Volume 2C 81 mL Abnormal 18 - 58 mL [facility] [employer] Work Phone: LA Volume 4C 92 mL Abnormal 18 - 58 mL [facility] [employer] Work Phone: LA Volume A/L 93 mL [facility] [employer] Work Phone: LA Volume Index 2C 32 mL/m2 16 - 34 mL/m2 [facility] [employer] Work Phone: LA Volume Index 4C 36 mL/m2 Abnormal 16 - 34 mL/m2 [facility] [employer] Work Phone: LA Volume Index A/L 36 mL/m2 16 - 34 mL/m2 [facility] [employer] Work Phone: LV EDV A2C 156 mL [facility] [employer] Work Phone: LV EDV A4C 147 mL [facility] Work Phone: LV EDV BP 155 mL 67 - 155 mL [facility] [employer] Work Phone: LV EDV Index A2C 61 mL/m2 [facility] [employer] Work Phone: LV EDV Index A4C 57 mL/m2 [employer] Work Phone: LV EDV Index BP 61 mL/m2 [employer] Work Phone: [phone] LV ESV A2C 55 mL [employer] Work Phone: [phone] LV ESV A4C 69 mL [employer] Work Phone: [phone] LV ESV BP 62 mL Abnormal 22 - 58 mL [employer] Work Phone: [phone] LV ESV Index A2C 21 mL/m2 [employer] Work Phone: [phone] LV ESV Index A4C 27 mL/m2 [employer] Work Phone: [phone] LV ESV Index BP 24 mL/m2 [employer] Work Phone: [phone] LV Mass 2D 417.5 g Abnormal 88 - 224 g [employer] Work Phone: [phone] LV Mass 2D Index 163.1 g/m2 Abnormal 49 - 115 g/m2 [employer] Work Phone: LV RWT Ratio 0.59 [employer] Work Phone: [phone] LVIDd 5.4 cm 4.2 - 5.9 cm [employer] Work Phone: [phone] LVIDd Index 2.11 cm/m2 [employer] Work Phone: [phone] LVIDs 3.7 cm [employer] Work Phone: LVIDs Index 1.45 cm/m2 [employer] Work Phone: [phone] LVOT Area 3.1 cm2 [employer] Work Phone: [phone] LVOT Cardiac Output 13.3 liter/mi nu te [employer] Work Phone: [phone] LVOT Diameter 2.0 cm [employer] Work Phone: [phone] LVOT Mean Gradient 2 mmHg [employer] Work Phone: [phone] LVOT Peak Gradient 4 mmHg [employer] Work Phone: LVOT Peak Velocity 1.0 m/s [employer] Phone: [phone] LVOT Stroke Volume Index 27.2 mL/m2 [employer] Work Phone: LVOT SV 69.7 ml [facility] [employer] Work Phone: [phone] LVOT VTI 22.2 cm [facility] [employer] Work Phone: [phone] LVOT:AV VTI Index 0.70 [facility] [employer] Phone: [phone] LVPWd 1.6 cm Abnormal 0.6 - 1.0 cm [facility] [employer] Phone: [phone] MV A Velocity 0.61 m/s [facility] [employer] Work Phone: [phone] MV E Velocity 0.58 m/s [facility] [employer] Phone: [phone] MV E Wave Deceleration Time 215.7 ms [facility] [employer] Phone: [phone] MV E/A 0.95 [facility] [employer] Phone: [phone] RV Basal Dimension 3.0 cm [facility] [employer] Phone: [phone] RV Longitudinal Dimension 1.8 cm [facility] [employer] Phone: [phone] Sinotubular Junction 2.7 cm [facility] [employer] Work Phone: TAPSE 2.2 cm 1.7 cm [facility] [employer] Phone: TR Max Velocity 2.19 m/s [facility] [employer] Phone: TR Peak Gradient 19 mmHg [facility] [employer] Phone: [facility] [employer] Phone: Heart Transthoracicon Left Ventricle: Left ventricle [...] percentageon 2022 Chloride [Moles/Vol] 110 mmol/L 98-107 [facility] Glucose [Mass/Vol] 108 mg/dL 74-106 [facility] Comment on above: Fasting Glucose resu lt from 100 to 125 mg/dL suggests IMPAIRED HOMEOSTASIS per A.D.A. criteria. Potassium [Moles/Vol] 4.0 mmol/L 3.5-5.1 [facility] Sodium [Moles/Vol] 140 mmol/L 136-145 [facility] Laboratory - Chemistry and C hemistry - challengeon 10-27-2022 CO2 [Moles/Vol] 27.0 mmol/L 21.0-32.0 [facility] Urea nitrogen/Creatinine [Mass ratio] 21.1 mg/mg 10-20 [facility] No Panel Informationon 10-27 Estimated GFR (MDRD) Amer 59 mL/min >60 [facility] Comment on above: GFR Calc Estimated GFR (MDRD) Non-Af Amer 49 mL/min >60 [facility] Comment on above: Non- GFR Calc Serum or plasma calcium renu urement (mass/volume)on 10-27-2022 Calcium [Mass/Vol] 8.8 mg/dL 8.5-10.1 [facility] Serum or plasma creatinine m easurement (mass/volume)on 10-27-2022 Creatinine [Mass/Vol] 1.52 mg/dL 0.70-1.30 [facility] Comment on above: The validity of the calculated GFR & GFRAA in patients over 70 years has not been determined. Clinical correlation is essential. Serum or plasma urea nitroge n measurement (mass/volume)on 10-27-2022 Urea nitrogen [Mass/Vol] 32 mg/dL 7-18 [facility] Thin prep Papanicolaou smear with manual screeningon 10-27-2022 Thin prep Papanicolaou smear with manual screening 3 5-15 [facility] Basophil percentageon 2022 Chloride [Moles/Vol] 108 mmol/L 98-107 [facility] Glucose [Mass/Vol] 168 mg/dL 74-106 [facility] Comment on above: Fasting Glucose resu lt greater than or equal to 126 mg/dL suggests DIABETES MELLITUS per A.D.A. criteria. Potassium [Moles/Vol] 4.0 mmol/L 3.5-5.1 [facility] Sodium [Moles/Vol] 142 mmol/L 136-145 [facility] Laboratory - Chemistry and C hemistry - challengeon 10-22-2022 CO2 [Moles/Vol] 26.0 mmol/L 21.0-32.0 [facility] Urea nitrogen/Creatinine [Mass ratio] 30.3 mg/mg 10-20 [facility] No Panel Informationon 10-22 Estimated GFR (MDRD) Amer 50 mL/min >60 [facility] Comment on above: GFR Calc Estimated GFR (MDRD) Non-Af Amer 42 mL/min >60 [facility] Comment on above: Non- GFR Calc Serum or plasma calcium renu urement (mass/volume)on 10-22-2022 Calcium [Mass/Vol] 9.0 mg/dL 8.5-10.1 [facility] Serum or plasma creatinine m easurement (mass/volume)on 10-22-2022 Creatinine [Mass/Vol] 1.75 mg/dL 0.70-1.30 [facility] Comment on above: The validity of the calculated GFR & GFRAA in patients over 70 years has not been determined. Clinical correlation is essential. Serum or plasma urea nitroge n measurement (mass/volume)on 10-22-2022 Urea nitrogen [Mass/Vol] 53 mg/dL 7-18 [facility] Thin prep Papanicolaou smear with manual screeningon 10-22-2022 Thin prep Papanicolaou smear with manual screening 8 5-15 [facility] Basophil percentageon 2022 Chloride [Moles/Vol] 105 mmol/L 98-107 [facility] Glucose [Mass/Vol] 139 mg/dL 74-106 [facility] Comment on above: Fasting Glucose resu lt greater than or equal to 126 mg/dL suggests DIABETES MELLITUS per A.D.A. criteria. Potassium [Moles/Vol] 4.2 mmol/L 3.5-5.1 [facility] Sodium [Moles/Vol] 140 mmol/L 136-145 [facility] Laboratory - Chemistry and C hemistry - challengeon 10-06-2022 CO2 [Moles/Vol] 27.0 mmol/L 21.0-32.0 [facility] Natriuretic peptide B (Bld) [Mass/Vol] 14.7 pg/mL 0-100 [facility] Urea nitrogen/Creatinine [Mass ratio] 17.6 mg/mg 10-20 [facility] No Panel Informationon 10-06 D-Dimer Quantitative (PE/DVT) 0.37 FEU/ug/m 0.27-0.49 [facility] Comment on above: NORMAL D-Dimer level (<0.50) indicates no DVT or PE. Estimated GFR (MDRD) Amer 64 mL/min >60 [facility] Comment on above: GFR Calc Estimated GFR (MDRD) Non-Af Amer 53 mL/min >60 [facility] Comment on above: Non- GFR Calc Serum or plasma calcium renu urement (mass/volume)on 10-06-2022 Calcium [Mass/Vol] 9.2 mg/dL 8.5-10.1 [facility] Serum or plasma creatinine m easurement (mass/volume)on 10-06-2022 Creatinine [Mass/Vol] 1.42 mg/dL 0.70-1.30 [facility] Comment on above: The validity of the calculated GFR & GFRAA in patients over 70 years has not been determined. Clinical correlation is essential. Serum or plasma urea nitroge n measurement (mass/volume)on 10-06-2022 Urea nitrogen [Mass/Vol] 25 mg/dL 7-18 [facility] Thin prep Papanicolaou smear with manual screeningon 10-06-2022 Thin prep Papanicolaou smear with manual screening 8 5-15 [facility] Absolute lymphocyte counton 09-29-2022 Lymphocytes Auto (Unsp spec) [#/Vol] 1.29 10*3/uL 0.83-4.51 [facility] Basophil percentageon 2022 Basophils/100 WBC (Bld) 0.5 % 0-1 [facility] Bilirubin [Mass/Vol] 1.00 mg/dL 0.20-1.00 [facility] Comment on above: For patients on eltr ombopag therapy, use of Dimension [place] TBIL is not recommended. Chloride [Moles/Vol] 111 mmol/L 98-107 [facility] Eosinophils/100 WBC (Bld) 1.2 % 0-5 [facility] Glucose [Mass/Vol] 107 mg/dL 74-106 [facility] Comment on above: Fasting Glucose resu lt from 100 to 125 mg/dL suggests IMPAIRED HOMEOSTASIS per A.D.A. criteria. Neutrophils (Bld) [#/Vol] 5.4 10*3/uL 2.0-7.7 [facility] Neutrophils/100 WBC (Bld) 73.9 % 47-70 [facility] Potassium [Moles/Vol] 3.9 mmol/L 3.5-5.1 [facility] Protein [Mass/Vol] 7.0 g/dL 6.4-8.2 [facility] Sodium [Moles/Vol] 143 mmol/L 136-145 [facility] WBC (Bld) [#/Vol] 7.4 10*3/uL 4.4-11.0 [facility] Blood erythrocytes count (nu mber/volume)on 09-29-2022 RBC (Bld) [#/Vol] 4.09 10*6/uL 4.6-6.2 [facility] Blood hemoglobin measurement (mass/volume)on 09-29-2022 Hemoglobin (Bld) [Mass/Vol] 12.1 g/dL 13.0-16.5 [facility] Blood lymphocytes/100 leukoc yteson 09-29-2022 Lymphocytes/100 WBC (Bld) 17.6 % 19-41 [facility] Blood monocytes/100 leukocyt eson 09-29-2022 Monocytes/100 WBC (Bld) 6.4 % 0-10 [facility] Blood platelet mean volumeon 09-29-2022 Platelet mean volume (Bld) [Entitic vol] 9.5 fL 6.2-12.0 [facility] Determination of erythrocyte mean corpuscular volume (MCV)on 09-29-2022 MCV (RBC) [Entitic vol] 91.7 fL 80-94 [facility] Direct bilirubinon Bilirubin.direct [Mass/Vol] 0.25 mg/dL 0.00-0.30 [facility] Hematocrit Auto (Bld) [Volum e fraction]on 09-29-2022 Hematocrit (Bld) [Volume fraction] 37.5 % 40-54 [facility] Laboratory - Chemistry and C hemistry - challengeon 09-29-2022 ALP [Catalytic activity/Vol] 111 U/L 45-117 [facility] ALT [Catalytic activity/Vol] 39 U/L 16-61 [facility] CO2 [Moles/Vol] 27.0 mmol/L 21.0-32.0 [facility] Globulin (S) [Mass/Vol] 3.4 g/dL 2.2-4.2 [facility] Natriuretic peptide B (Bld) [Mass/Vol] 17.5 pg/mL 0-100 [facility] Urea nitrogen/Creatinine [Mass ratio] 17.1 mg/mg 10-20 [facility] Laboratory - Hematology and Cell countson 09-29-2022 Erythrocyte distribution width (RBC) [Entitic vol] 47.3 fL 35.1-43.9 [facility] Erythrocyte distribution width (RBC) [Ratio] 14.1 % 11.6-14.6 [facility] Immature granulocytes/100 WBC (Bld) 0.400 % 0.0-0.9 [facility] Comment on above: IG% - Immature Granu locytes (promyelocytes, myelocytes and metamyelocytes) > 1% indicates that a LEFT SHIFT is Present. MCH (RBC) [Entitic mass] 29.6 pg 27.0-32.0 [facility] Nucleated RBC/100 WBC (Bld) [Ratio] 0 % 0-5 [facility] MCHC Auto (RBC) [Mass/Vol]on 09-29-2022 MCHC (RBC) [Mass/Vol] 32.3 g/dL 32-36 [facility] No Panel Informationon 09-29 Estimated GFR (MDRD) Amer 76 mL/min >60 [facility] Comment on above: GFR Calc Estimated GFR (MDRD) Non-Af Amer 62 mL/min >60 [facility] Comment on above: Non- GFR Calc Platelets bldon 09-29-2022 Platelets (Bld) [#/Vol] 216 10*3/uL 150-450 [facility] Serum or plasma albumin renu urement (mass/volume)on 09-29-2022 Albumin [Mass/Vol] 3.6 g/dL 3.2-5.0 [facility] Serum or plasma calcium renu urement (mass/volume)on 09-29-2022 Calcium [Mass/Vol] 8.7 mg/dL 8.5-10.1 [facility] Serum or plasma creatinine m easurement (mass/volume)on 09-29-2022 Creatinine [Mass/Vol] 1.23 mg/dL 0.70-1.30 [facility] Comment on above: The validity of the calculated GFR & GFRAA in patients over 70 years has not been determined. Clinical correlation is essential. Serum or plasma urea nitroge n measurement (mass/volume)on 09-29-2022 Urea nitrogen [Mass/Vol] 21 mg/dL 7-18 [facility] Thin prep Papanicolaou smear with manual screeningon 09-29-2022 Thin prep Papanicolaou smear with manual screening 13 U/L 15-37 [facility] Thin prep Papanicolaou smear with manual screening 5 5-15 [facility] No Panel Informationon 09-28 Sinus Bradycardia WITHIN NORMAL LIMITS [employer] No Panel InformationOrdered By: Zoie Gonzales on 09-28-2022 [facility] [employer] Work Phone: Absolute lymphocyte countOrd ered By: Dr. Ferrell on 09-22-2022 Lymphocytes Auto (Unsp spec) [#/Vol] 1.24 10*3/uL 0.83-4.51 [facility] Basophil percentageOrdered B y: Dr. Ferrell on 09-22-2022 Basophils/100 WBC (Bld) 0.4 % 0-1 [facility] Bilirubin [Mass/Vol] 1.30 mg/dL 0.20-1.00 [facility] Comment on above: For patients on eltr ombopag therapy, use of Dimension [place] TBIL is not recommended. Chloride [Moles/Vol] 108 mmol/L 98-107 [facility] Cholesterol [Mass/Vol] 133 mg/dL <200 [facility] Comment on above: <200 mg/dL Desirable 200-240 mg/dL Borderline >240 mg/dL High Risk Eosinophils/100 WBC (Bld) 1.7 % 0-5 [facility] Glucose [Mass/Vol] 103 mg/dL 74-106 [facility] Comment on above: Fasting Glucose resu lt from 100 to 125 mg/dL suggests IMPAIRED HOMEOSTASIS per A.D.A. criteria. Neutrophils (Bld) [#/Vol] 5.8 10*3/uL 2.0-7.7 [facility] Neutrophils/100 WBC (Bld) 75.5 % 47-70 [facility] Potassium [Moles/Vol] 3.6 mmol/L 3.5-5.1 [facility] Protein [Mass/Vol] 7.1 g/dL 6.4-8.2 [facility] Sodium [Moles/Vol] 142 mmol/L 136-145 [facility] Triglyceride [Mass/Vol] 121 mg/dL <199 [facility] Comment on above: The drugs N-Acetylcy steine and Metamizole may falsely depress this assay.Serum Triglycerides Reference Interval Normal <150 mg/dL Borderline high 150 - 199 mg/dL High 200 - 499 mg/dL Very High > or = 500 mg/dL WBC (Bld) [#/Vol] 7.7 10*3/uL 4.4-11.0 [facility] Blood erythrocytes count (nu mber/volume)Ordered By: Dr. Ferrell on 09-22-2022 RBC (Bld) [#/Vol] 4.03 10*6/uL 4.6-6.2 [facility] Blood hemoglobin measurement (mass/volume)Ordered By: Dr. Ferrell on 09-22-2022 Hemoglobin (Bld) [Mass/Vol] 11.8 g/dL 13.0-16.5 [facility] Blood lymphocytes/100 leukoc ytesOrdered By: Dr. Ferrell on 09-22-2022 Lymphocytes/100 WBC (Bld) 16.1 % 19-41 [facility] Blood monocytes/100 leukocyt esOrdered By: Dr. Ferrell on 09-22-2022 Monocytes/100 WBC (Bld) 6.0 % 0-10 [facility] Blood platelet mean volumeOr dered By: Dr. Ferrell on 09-22-2022 Platelet mean volume (Bld) [Entitic vol] 9.9 fL 6.2-12.0 [facility] Determination of erythrocyte mean corpuscular volume (MCV)Ordered By: Dr. Ferrell on 09-22-2022 MCV (RBC) [Entitic vol] 91.6 fL 80-94 [facility] Hematocrit Auto (Bld) [Volum e fraction]Ordered By: Dr. Ferrell on 09-22-2022 Hematocrit (Bld) [Volume fraction] 36.9 % 40-54 [facility] Iron measurement (mass/mass) Ordered By: Dr. Ferrell on 09-22-2022 Iron (Unsp spec) [Mass/Mass] 57 ug/dL 65-175 [facility] Laboratory - Chemistry and C hemistry - challengeOrdered By: Dr. Ferrell on 09-22-2022 ALP [Catalytic activity/Vol] 111 U/L 45-117 [facility] ALT [Catalytic activity/Vol] 39 U/L 16-61 [facility] CO2 [Moles/Vol] 28.0 mmol/L 21.0-32.0 [facility] Cobalamin (Vitamin B12) [Mass/Vol] 248 pg/mL 211-911 [facility] Free T4 [Mass/Vol] 1.04 ng/dL 0.76-1.46 [facility] Globulin (S) [Mass/Vol] 3.5 g/dL 2.2-4.2 [facility] Magnesium [Mass/Vol] 1.9 mg/dL 1.6-2.6 [facility] Urea nitrogen/Creatinine [Mass ratio] 14.8 mg/mg 10-20 [facility] Laboratory - Hematology and Cell countsOrdered By: Dr. Ferrell on 09-22-2022 Erythrocyte distribution width (RBC) [Entitic vol] 47.9 fL 35.1-43.9 [facility] Erythrocyte distribution width (RBC) [Ratio] 14.3 % 11.6-14.6 [facility] Immature granulocytes/100 WBC (Bld) 0.300 % 0.0-0.9 [facility] Comment on above: IG% - Immature Granu locytes (promyelocytes, myelocytes and metamyelocytes) > 1% indicates that a LEFT SHIFT is Present. MCH (RBC) [Entitic mass] 29.3 pg 27.0-32.0 [facility] Nucleated RBC/100 WBC (Bld) [Ratio] 0 % 0-5 [facility] MCHC Auto (RBC) [Mass/Vol]Or dered By: Dr. Ferrell on 09-22-2022 MCHC (RBC) [Mass/Vol] 32.0 g/dL 32-36 [facility] No Panel InformationOrdered By: Dr. Ferrell on 09-22-2022 Estimated GFR (MDRD) Amer 76 mL/min >60 [facility] Comment on above: GFR Calc Estimated GFR (MDRD) Non-Af Amer 63 mL/min >60 [facility] Comment on above: Non- GFR Calc Thyroid Stimulating Hormone (TSH) 1.48 uIU/mL 0.358-3.74 [facility] Total Iron Binding Capacity 263 ug/dL 250-450 [facility] Vitamin D 25-Hydroxy 25.5 ng/mL [facility] Comment on above: Vitamin D 25(OH) Sta tus Range Deficiency <20 ng/mL (50nmol/L) Insufficiency 20 - 30 ng/mL (50 - 75 nmol/L) Sufficiency 30 - 100 ng/mL (75 - 250 nmol/L) Toxicity >100 ng/mL (>250 nmol/L) Platelets bldOrdered By: Dr. Ferrell on 09-22-2022 Platelets (Bld) [#/Vol] 226 10*3/uL 150-450 [facility] Serum or plasma albumin renu urement (mass/volume)Ordered By: Dr. Ferrell on 09-22-2022 Albumin [Mass/Vol] 3.6 g/dL 3.2-5.0 [facility] Serum or plasma albumin/glob ulin mass ratioOrdered By: Dr. Ferrell on 09-22-2022 Albumin/Globulin [Mass ratio] 1.0 {ratio} 0.9-2.4 [facility] Serum or plasma calcium renu urement (mass/volume)Ordered By: Dr. Ferrell on 09-22-2022 Calcium [Mass/Vol] 8.7 mg/dL 8.5-10.1 [facility] Serum or plasma cholesterol in HDL measurement (mass/volume)Ordered By: Dr. Ferrell on 09-22-2022 Cholesterol in HDL [Mass/Vol] 51 mg/dL >40 [facility] Comment on above: The drugs N-Acetylcy steine and Metamizole may falsely depress this assay. Reference Range HDL <40 mg/dL Low HDL Cholesterol HDL >or= 60 mg/dL High HDL Cholesterol Serum or plasma cholesterol in VLDL measurement (mass/volume)Ordered By: Dr. Ferrell on 09-22-2022 Cholesterol in VLDL [Mass/Vol] 24 mg/dL 5-40 [facility] Serum or plasma creatinine m easurement (mass/volume)Ordered By: Dr. Ferrell on 09-22-2022 Creatinine [Mass/Vol] 1.22 mg/dL 0.70-1.30 [facility] Comment on above: The validity of the calculated GFR & GFRAA in patients over 70 years has not been determined. Clinical correlation is essential. Serum or plasma ferritin ellen surement (mass/volume)Ordered By: Dr. Ferrell on 09-22-2022 Ferritin [Mass/Vol] 222 ng/mL 26-388 [facility] Serum or plasma low density lipoprotein (LDL) cholesterol measurement (mass/volume)Ordered By: Dr. Ferrell on 09-22-2022 Cholesterol in LDL [Mass/Vol] 58 mg/dL 0-130 [facility] Serum or plasma urea nitroge n measurement (mass/volume)Ordered By: Dr. Ferrell on 09-22-2022 Urea nitrogen [Mass/Vol] 18 mg/dL 7-18 [facility] Thin prep Papanicolaou smear with manual screeningOrdered By: Dr. Ferrell on 09-22-2022 Thin prep Papanicolaou smear with manual screening 21 U/L 15-37 [facility] Thin prep Papanicolaou smear with manual screening 6 5-15 [facility] Whole blood hemoglobin A1c/t otal hemoglobin ratio (mass fraction)Ordered By: Dr. Ferrell on 09-22-2022 HbA1c (Bld) [Mass fraction] 5.2 % 3.8-5.6 [facility] Comment on above: Normal < 5.7 % Predi abetic 5.7 - 6.4 % Diabetic >or= 6.5 % Please note range changes. Absolute lymphocyte countOrd ered By: Dr. Cornelius on 08-21-2022 Lymphocytes Auto (Unsp spec) [#/Vol] 0.67 10*3/uL 0.83-4.51 [facility] Basophil percentageOrdered B y: Dr. Cornelius on 08-21-2022 Basophils/100 WBC (Bld) 0.1 % 0-1 [facility] Eosinophils/100 WBC (Bld) 0.0 % 0-5 [facility] Neutrophils (Bld) [#/Vol] 14.4 10*3/uL 2.0-7.7 [facility] Neutrophils/100 WBC (Bld) 90.5 % 47-70 [facility] WBC (Bld) [#/Vol] 15.9 10*3/uL 4.4-11.0 [facility] Blood erythrocytes count (nu mber/volume)Ordered By: Dr. Cornelius on 08-21-2022 RBC (Bld) [#/Vol] 4.11 10*6/uL 4.6-6.2 [facility] Blood hemoglobin measurement (mass/volume)Ordered By: Dr. Cornelius on 08-21-2022 Hemoglobin (Bld) [Mass/Vol] 12.1 g/dL 13.0-16.5 [facility] Blood lymphocytes/100 leukoc ytesOrdered By: Dr. Cornelius on 08-21-2022 Lymphocytes/100 WBC (Bld) 4.2 % 19-41 [facility] Blood monocytes/100 leukocyt esOrdered By: Dr. Cornelius on 08-21-2022 Monocytes/100 WBC (Bld) 4.8 % 0-10 [facility] Blood platelet mean volumeOr dered By: Dr. Cornelius on 08-21-2022 Platelet mean volume (Bld) [Entitic vol] 10.1 fL 6.2-12.0 [facility] Determination of erythrocyte mean corpuscular volume (MCV)Ordered By: Dr. Cornelius on 08-21-2022 MCV (RBC) [Entitic vol] 92.2 fL 80-94 [facility] Hematocrit Auto (Bld) [Volum e fraction]Ordered By: Dr. Cornelius on 08-21-2022 Hematocrit (Bld) [Volume fraction] 37.9 % 40-54 [facility] Laboratory - Hematology and Cell countsOrdered By: Dr. Cornelius on 08-21-2022 Erythrocyte distribution width (RBC) [Entitic vol] 47.8 fL 35.1-43.9 [facility] Erythrocyte distribution width (RBC) [Ratio] 14.1 % 11.6-14.6 [facility] Immature granulocytes/100 WBC (Bld) 0.400 % 0.0-0.9 [facility] Comment on above: IG% - Immature Granu locytes (promyelocytes, myelocytes and metamyelocytes) > 1% indicates that a LEFT SHIFT is Present. MCH (RBC) [Entitic mass] 29.4 pg 27.0-32.0 [facility] Nucleated RBC/100 WBC (Bld) [Ratio] 0 % 0-5 [facility] MCHC Auto (RBC) [Mass/Vol]Or dered By: Dr. Cornelius on 08-21-2022 MCHC (RBC) [Mass/Vol] 31.9 g/dL 32-36 [facility] Platelets bldOrdered By: Dr. Cornelius on 08-21-2022 Platelets (Bld) [#/Vol] 252 10*3/uL 150-450 [facility] Basophil percentageOrdered B y: Dr. Hayes on 08-12-2022 Bilirubin [Mass/Vol] 1.10 mg/dL 0.20-1.00 [facility] Comment on above: For patients on eltr ombopag therapy, use of Dimension [place] TBIL is not recommended. Chloride [Moles/Vol] 109 mmol/L 98-107 [facility] Glucose [Mass/Vol] 106 mg/dL 74-106 [facility] Comment on above: Fasting Glucose resu lt from 100 to 125 mg/dL suggests IMPAIRED HOMEOSTASIS per A.D.A. criteria. Potassium [Moles/Vol] 3.8 mmol/L 3.5-5.1 [facility] Protein [Mass/Vol] 7.4 g/dL 6.4-8.2 [facility] Sodium [Moles/Vol] 143 mmol/L 136-145 [facility] Direct bilirubinOrdered By: Dr. Hayes on 08-12-2022 Bilirubin.direct [Mass/Vol] 0.24 mg/dL 0.00-0.30 [facility] INR in Blood by Coagulation assayOrdered By: Dr. Hayes on 08-12-2022 INR Coag (Bld) [Relative time] 1.1 {INR} [facility] Laboratory - Chemistry and C hemistry - challengeOrdered By: Dr. Hayes on 08-12-2022 ALP [Catalytic activity/Vol] 115 U/L 45-117 [facility] ALT [Catalytic activity/Vol] 42 U/L 16-61 [facility] CO2 [Moles/Vol] 28.0 mmol/L 21.0-32.0 [facility] Globulin (S) [Mass/Vol] 3.6 g/dL 2.2-4.2 [facility] Urea nitrogen/Creatinine [Mass ratio] 16.0 mg/mg 10-20 [facility] Laboratory - CoagulationOrde red By: Dr. Hayes on 08-12-2022 aPTT Coag (Bld) [Time] 30.4 s 24.1-36.2 [facility] PT Coag (PPP) [Time] 13.8 s 11.7-14.9 [facility] No Panel InformationOrdered By: Dr. Hayes on 08-12-2022 Estimated GFR (MDRD) Amer 79 mL/min >60 [facility] Comment on above: GFR Calc Estimated GFR (MDRD) Non-Af Amer 65 mL/min >60 [facility] Comment on above: Non- GFR Calc Serum or plasma albumin renu urement (mass/volume)Ordered By: Dr. Hayes on 08-12-2022 Albumin [Mass/Vol] 3.8 g/dL 3.2-5.0 [facility] Serum or plasma calcium renu urement (mass/volume)Ordered By: Dr. Hayes on 08-12-2022 Calcium [Mass/Vol] 8.9 mg/dL 8.5-10.1 [facility] Serum or plasma creatinine m easurement (mass/volume)Ordered By: Dr. Hayes on 08-12-2022 Creatinine [Mass/Vol] 1.19 mg/dL 0.70-1.30 [facility] Comment on above: The validity of the calculated GFR & GFRAA in patients over 70 years has not been determined. Clinical correlation is essential. Serum or plasma urea nitroge n measurement (mass/volume)Ordered By: Dr. Hayes on 08-12-2022 Urea nitrogen [Mass/Vol] 19 mg/dL 7-18 [facility] Thin prep Papanicolaou smear with manual screeningOrdered By: Dr. Hayes on 08-12-2022 Thin prep Papanicolaou smear with manual screening 19 U/L 15-37 [facility] Thin prep Papanicolaou smear with manual screening 6 5-15 [facility] Absolute lymphocyte counton 04-01-2022 Lymphocytes Auto (Unsp spec) [#/Vol] 1.24 10*3/uL 0.83-4.51 [facility] Work Phone: Basophil percentageon 2021 Basophils/100 WBC (Bld) 0.3 % 0-1 [facility] Work Phone: Bilirubin [Mass/Vol] 1.50 mg/dL 0.20-1.00 [facility] Work Phone: Comment on above: For patients on eltr ombopag therapy, use of Dimension [place] TBIL is not recommended. Chloride [Moles/Vol] 110 mmol/L 98-107 [facility] Work Phone: [phone] Eosinophils/100 WBC (Bld) 1.0 % 0-5 [facility] Work Phone: [phone] Glucose [Mass/Vol] 103 mg/dL 74-106 [facility] Work Phone: [phone] Comment on above: Fasting Glucose resu lt from 100 to 125 mg/dL suggests IMPAIRED HOMEOSTASIS per A.D.A. criteria. Neutrophils (Bld) [#/Vol] 6.8 10*3/uL 2.0-7.7 [facility] Work Phone: Neutrophils/100 WBC (Bld) 78.0 % 47-70 [facility] Work Phone: Potassium [Moles/Vol] 4.0 mmol/L 3.5-5.1 [facility] Work Phone: Protein [Mass/Vol] 7.3 g/dL 6.4-8.2 [facility] Work Phone: Sodium [Moles/Vol] 143 mmol/L 136-145 [facility] Work Phone: [phone] WBC (Bld) [#/Vol] 8.7 10*3/uL 4.4-11.0 [facility] Work Phone: Blood erythrocytes count (nu mber/volume)on 04-01-2022 RBC (Bld) [#/Vol] 4.28 10*6/uL 4.6-6.2 [facility] Work Phone: Blood hemoglobin measurement (mass/volume)on 04-01-2022 Hemoglobin (Bld) [Mass/Vol] 12.9 g/dL 13.0-16.5 [facility] Work Phone: [phone] Blood lymphocytes/100 leukoc yteson 04-01-2022 Lymphocytes/100 WBC (Bld) 14.3 % 19-41 [facility] Work Phone: Blood monocytes/100 leukocyt eson 04-01-2022 Monocytes/100 WBC (Bld) 6.2 % 0-10 [facility] Work Phone: Blood platelet mean volumeon 04-01-2022 Platelet mean volume (Bld) [Entitic vol] 9.8 fL 6.2-12.0 [facility] Work Phone: Determination of erythrocyte mean corpuscular volume (MCV)on 04-01-2022 MCV (RBC) [Entitic vol] 89.7 fL 80-94 [facility] Work Phone: Direct bilirubinon 2 Bilirubin.direct [Mass/Vol] 0.32 mg/dL 0.00-0.30 [facility] Work Phone: Hematocrit Auto (Bld) [Volum e fraction]on 04-01-2022 Hematocrit (Bld) [Volume fraction] 38.4 % 40-54 [facility] Work Phone: Iron measurement (mass/mass) on 04-01-2022 Iron (Unsp spec) [Mass/Mass] 55 ug/dL 65-175 [facility] Work Phone: Laboratory - Chemistry and C hemistry - challengeon 04-01-2022 ALP [Catalytic activity/Vol] 99 U/L 45-117 [facility] Work Phone: ALT [Catalytic activity/Vol] 24 U/L 16-61 [facility] Work Phone: CO2 [Moles/Vol] 30.0 mmol/L 21.0-32.0 [facility] Work Phone: Globulin (S) [Mass/Vol] 3.6 g/dL 2.2-4.2 [facility] Work Phone: Urea nitrogen/Creatinine [Mass ratio] 17.0 mg/mg 10-20 [facility] Work Phone: Laboratory - Hematology and Cell countson 04-01-2022 Erythrocyte distribution width (RBC) [Entitic vol] 46.5 fL 35.1-43.9 [facility] Work Phone: Erythrocyte distribution width (RBC) [Ratio] 14.2 % 11.6-14.6 [facility] Work Phone: Immature granulocytes/100 WBC (Bld) 0.200 % 0.0-0.9 [facility] Work Phone: Comment on above: IG% - Immature Granu locytes (promyelocytes, myelocytes and metamyelocytes) > 1% indicates that a LEFT SHIFT is Present. MCH (RBC) [Entitic mass] 30.1 pg 27.0-32.0 [facility] Work Phone: Nucleated RBC/100 WBC (Bld) [Ratio] 0 % 0-5 [facility] Work Phone: MCHC Auto (RBC) [Mass/Vol]on 04-01-2022 MCHC (RBC) [Mass/Vol] 33.6 g/dL 32-36 [facility] Work Phone: No Panel Informationon 04-01 Endomysial IgA Antibody Negative Negative [facility] Work Phone: Estimated GFR (MDRD) Amer 68 mL/min >60 [facility] Work Phone: Comment on above: GFR Calc Estimated GFR (MDRD) Non-Af Amer 56 mL/min >60 [facility] Work Phone: Comment on above: Non- GFR Calc Total Iron Binding Capacity 345 ug/dL 250-450 [facility] Work Phone: Platelets bldon 04-01-2022 Platelets (Bld) [#/Vol] 243 10*3/uL 150-450 [facility] Work Phone: Serum IgA measurement (units /volume)on 04-01-2022 IgA Qn (S) 325 mg/dL 61-437 [facility] Work Phone: Comment on above: Performed at: [address] [id number] Director: Terrance Ashford PhD, Phone: [phone] Serum or plasma albumin renu urement (mass/volume)on 04-01-2022 Albumin [Mass/Vol] 3.7 g/dL 3.2-5.0 [facility] Work Phone: Serum or plasma albumin/glob ulin mass ratioon 04-01-2022 Albumin/Globulin [Mass ratio] 1.0 {ratio} 0.9-2.4 [facility] Work Phone: Serum or plasma calcium renu urement (mass/volume)on 04-01-2022 Calcium [Mass/Vol] 9.0 mg/dL 8.5-10.1 [facility] Work Phone: Serum or plasma creatinine m easurement (mass/volume)on 04-01-2022 Creatinine [Mass/Vol] 1.35 mg/dL 0.70-1.30 [facility] Work Phone: Comment on above: The validity of the calculated GFR & GFRAA in patients over 70 years has not been determined. Clinical correlation is essential. Serum or plasma ferritin ellen surement (mass/volume)on 04-01-2022 Ferritin [Mass/Vol] 260 ng/mL 26-388 [facility] Work Phone: Serum or plasma iron saturat ion measurement (mass fraction)on 04-01-2022 Iron saturation [Mass fraction] 15.9 % 15.0-55.0 [facility] Work Phone: Serum or plasma urea nitroge n measurement (mass/volume)on 04-01-2022 Urea nitrogen [Mass/Vol] 23 mg/dL 7-18 [facility] Work Phone: Serum tissue transglutaminas e IgA antibody assay (units/volume)on 04-01-2022 tTG IgA Qn (S) <2 U/mL 0-3 [facility] Work Phone: Comment on above: Negative 0 - 3 Weak Positive 4 - 10 Positive >10 Tissue Transglutaminase (tTG) has been identified as the endomysial antigen. Studies have demonstr- ated that endomysial IgA antibodies have over 99% specificity for gluten sensitive enteropathy. Thin prep Papanicolaou smear with manual screeningon 04-01-2022 Thin prep Papanicolaou smear with manual screening 12 U/L 15-37 [facility] Work Phone: Thin prep Papanicolaou smear with manual screening 3 5-15 [facility] Work Phone: Full PFT Study With Bronchod ilatoron 12-30-2021 Name: SHANNON OLSON PatientID: [id number] Gender: Male Birthdate: 1955 Study Date: 12/30/2021 8:51:41 AM Age: 66 Race: White or Height: 74.0 in, 188.0 cm Weight: 290.0 lbs, 131.8 kg Smoke Status: Never Pack Years: Tbco Prod: Cigarettes Ordering Physician: [id number] Interpreting Physician: [id number] 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: NAM Renner Location: [facility] Diagnosis: COPD W/ ASTHMA; HX COVID 2020 Spirometry Units Pred PreDrug Pre%Pred Post Post%Pred %Change FVC L,btps 5.26 3.61 69. 3.66 70. 1. FEV1 L,btps 3.93 2.68 68. 2.93 75. 9. FEV1/FVC (%) % 74. 74. 100. 80. 108. 8. ING30-47% L/s 3.06 2.02 66. 2.94 96. 45. [...] /MIP cmH2O -74.02 PEmax /MEP cmH2O 119.94 [employer] P[employer]ER [employer] P[employer] NOTES Tests to perform: [id number] - FULL PFT STUDY WITH BRONCHODILATOR. HOME MEDS: NO CURRENT BD. AMIODARONE. RETESTED AFTER 4 PUFFS ALBUTEROL. SPACER AND INSTRUCTIONS GIVEN. 35336- PRE/[place] [address]- DLCO 95959- FRC GAS PHYSICIAN INTERPRETATION No obstruction No BD response Borderline restriction Air trapping by elevated RV/TLC ratio Mildly reduced diffusion [facility] Dwayne Juárez MD - 12/30/2021 Name: SHANNON OLSON PatientID: [id number] Gender: Male Birthdate: 1955 Study Date: 12/30/2021 8:51:41 AM Age: 66 Race: White or Height: 74.0 in, 188.0 cm Weight: 290.0 lbs, 131.8 kg Smoke Status: Never Pack Years: Tbco Prod: Cigarettes Ordering Physician: [id number] Interpreting Physician: [id number] 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: NAM Testing Location: [facility] Diagnosis: COPD W/ ASTHMA; HX COVID 2020 Spirometry Units Pred PreDrug Pre%Pred Post Post%Pred %Change FVC L,btps 5.26 3.61 69. 3.66 70. 1. FEV1 L,btps 3.93 2.68 68. 2.93 75. 9. FEV1/FVC (%) % 74. 74. 100. 80. 108. 8. OKY73-08% L/s 3.06 2.02 66. 2.94 96. 45. [...] /MIP cmH2O -74.02 PEmax /MEP cmH2O 119.94 [employer] P[employer] NOTES Tests to perform: [id number] - FULL PFT STUDY WITH BRONCHODILATOR. HOME MEDS: NO CURRENT BD. AMIODARONE. RETESTED AFTER 4 PUFFS ALBUTEROL. SPACER AND INSTRUCTIONS GIVEN. 17290- PRE/[place] [address]- DLCO 71648- FRC GAS PHYSICIAN INTERPRETATION No obstruction No BD response Borderline restriction Air trapping by elevated RV/TLC ratio Mildly reduced diffusion [facility] Work Phone: Full PFT Study With Bronchod ilatorOrdered By: Dwayne Juárez on 12-30-2021 [facility] Work Phone: ACT,Whole Bloodon 12-02-2021 ACT,Whole Blood 163 s High 90-134 [facility] Comment on above: Result Comment: ACTB O Performed by [employer]IA ID: [id number] [place], [place] ACT testing is not intended for patients taking aprotonin, patients with hematocrits of <20% or >55%, patients using other types of anticoagulation medications, and patients with Lupus Anticoagulant. Performed By: #### A CTBO #### [place] [place] [address] Basic Metabolic Panelon 11-21 Anion gap [Moles/Vol] 12 mmol/L Normal 3-13 [facility] Comment on above: Performed By: #### B MP3, HEMOG #### [facility] [address] [place] [address] Calcium [Mass/Vol] 9.0 mg/dL Normal 8.4-10.4 [facility] Comment on above: Performed By: #### B MP3, HEMOG #### [address] [place] [address] CO2 [Moles/Vol] 24 mmol/L Normal 22-30 [facility] Comment on above: Performed By: #### B MP3, HEMOG #### [address] [place] [address] Glucose [Mass/Vol] 122 mg/dL High 70-100 [facility] Comment on above: Performed By: #### B MP3, HEMOG #### [address] [place] [address] Urea nitrogen [Mass/Vol] 30 mg/dL High 7-17 [facility] Comment on above: Performed By: #### B MP3, HEMOG #### [address] [address] [address] [place], [place] Creatinine [Mass/Vol] 1.24 mg/dL Normal 0.52-1.25 [facility] Comment on above: Performed By: #### B MP3, HEMOG #### [facility] [address], [place] GFR/1.73 sq M.predicted among blacks MDRD (S/P/Bld) [Vol rate/Area] 69.7 mL/min/{1.73_m2} Normal >60 [facility] Comment on above: Performed By: #### B MP3, HEMOG #### [facility] [address] [place], [place] GFR/1.73 sq M.predicted among non-blacks MDRD (S/P/Bld) [Vol rate/Area] 60.2 mL/min/{1.73_m2} Normal >60 [facility] Comment on above: Result Comment: KDIG O [...] Performed By: #### B MP3, HEMOG #### [facility] [address], [place] Potassium [Moles/Vol] 4.1 mmol/L Normal 3.5-5.1 [facility] Comment on above: Performed By: #### B MP3, HEMOG #### [facility] [address], [place] Sodium [Moles/Vol] 143 mmol/L Normal 135-145 [facility] Comment on above: Performed By: #### B MP3, HEMOG #### [facility] [address] [place] [address] Chloride [Moles/Vol] 107 mmol/L Normal 98-107 [facility] Comment on above: Performed By: #### B MP3, HEMOG #### [facility] [address] [place] [address] Anion gap [Moles/Vol] 12 mmol/L 3 - 13 mmol/L [facility] Calcium [Mass/Vol] 9.0 mg/dL 8.4 - 10. 4 mg/dL [facility] Chloride [Moles/Vol] 107 mmol/L 98 - 10 7 mmol/L [facility] CO2 [Moles/Vol] 24 mmol/L 22 - 30 mmol/L [facility] Creatinine [Mass/Vol] 1.24 mg/dL 0.52 - 1.25 mg/dL [facility] EGFR IF NonAfrican [place] 60.2 mL/min >60 [facility] Comment on above: KDIGO guidelines pro vide [...] 30 mg/dL High 7 - 17 mg/dL [facility] Test Performed by [facility], [address] [place] [id number] [facility] CARDIAC CATH NURSING LOGon 0 12-01-2021 Ordered by an unspec ified provider. [facility] CBCon 12-01-2021 Hematocrit (Bld) [Volume fraction] 39.8 % Low 40.0 - 52.0 % [facility] Hemoglobin (Bld) [Mass/Vol] 13.1 g/dL 13.0 - 18.0 g/dL [facility] Interpretation and review of laboratory results [...] - 10.7 10*3/uL [facility] Test Performed by [address] [address] [facility] EKG 12 leadon 12-01-2021 [facility] Test Date: 2021-12-01 Pat Name: SHANNON OLSON Department: [facility] Gender: M 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: RAFA : 1955 Requested By: ZOIE GONZALES Order Number: [id number] Reading DEVIKA Louie Measurements Intervals [place] Rate: 53 P: 29 OR: 205 QRS: -12 QRSD: 151 T: 129 QT: 497 QTc: 466 Interpretive Statements Sinus bradycardia LEFT BUNDLE BRANCH BLOCK consider prior anterior infarction Electronically Signed On 12-01-2021 15:28:43 EDT by Edward Johnson MD - 12/01/2021 [facility] Test Date: 2021-12-01 Pat Name: SHANNON OLSON Department: [facility] Room[facility] Gender: M 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: RAFA : 1955 Requested By: ZOIE GONZALES Order Number: [id number] Reading DEVIKA Louie Measurements Intervals [place] Rate: 53 P: 29 OR: 205 QRS: -12 QRSD: 151 T: 129 QT: 497 QTc: 466 Interpretive Statements Sinus bradycardia LEFT BUNDLE BRANCH BLOCK consider prior anterior infarction Electronically Signed On 12-01-2021 15:28:43 EDT by Edward Louie [facility] Work Phone: [facility] Work Phone: Electrocardiogram, 12-leadon 12-01-2021 [facility] Test Date: 2021-12-01 Pat Name: SHANNON OLSON Department: [facility] Room: [id number] Gender: M 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: RAFA : 1955 Requested By: MILAGRO JAIMES Order Number: [id number] Reading DEVIKA Louie Measurements Intervals [place] Rate: 50 P: 16 OR: 182 QRS: 14 QRSD: 151 T: 148 QT: 508 QTc: 465 Interpretive Statements Sinus bradycardia Left bundle branch block Consider anterolateral infarct Electronically Signed On 12-01-2021 15:14:17 EDT by Edward Johnson MD - 12/01/2021 [facility] Test Date: 2021-12-01 Pat Name: SHANNON OLSON Department: [facility] Room: [id number] Gender: M 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: RAFA : 1955 Requested By: MILAGRO JAIMES Order Number: [id number] Reading MD: Edward Louie Measurements Intervals [place] Rate: 50 P: 16 OR: 182 QRS: 14 QRSD: 151 T: 148 QT: 508 QTc: 465 Interpretive Statements Sinus bradycardia Left bundle branch block Consider anterolateral infarct Electronically Signed On 12-01-2021 15:14:17 EDT by Edward Louie [facility] Work Phone: Electrocardiogram, 12-leadOr dered By: Edward Louie on 12-01-2021 [employer] Work Phone: Hemogramon 12-01-2021 Erythrocyte distribution width (RBC) [Ratio] 14.5 % Normal 11.5-14.5 [facility] Comment on above: Performed By: #### B MP3, HEMOG #### [facility] [address] [address] [place], [place] Hematocrit (Bld) [Volume fraction] 39.8 % Low 40.0-52.0 [facility] Comment on above: Performed By: #### B MP3, HEMOG #### [facility] [place] [address] [address] [place], [place] Hemoglobin (Bld) [Mass/Vol] 13.1 g/dL Normal 13.0-18.0 [facility] Comment on above: Performed By: #### B MP3, HEMOG #### [facility] [address], [place] MCH (RBC) [Entitic mass] 29.7 pg Normal 26.0-34.0 [facility] Comment on above: Performed By: #### B MP3, HEMOG #### [facility] [address], [place] MCHC 32.9 % Normal 32.0-36.0 [facility] Comment on above: Performed By: #### B MP3, HEMOG #### [facility] [place] [address] [address] [place], [place] MCV (RBC) [Entitic vol] 90.3 fL Normal 80.0-98.0 [facility] Comment on above: Performed By: #### B MP3, HEMOG #### [facility] [address], [place] Platelet mean volume (Bld) [Entitic vol] 7.5 fL Normal 7.4-12.4 [facility] Comment on above: Result Comment: MPV is a calculated measurement using platelet volume ratio. Performed By: #### B MP3, HEMOG #### [facility] [address], [place] Platelets (Bld) [#/Vol] 251 10*3/uL Normal 140-440 [facility] Comment on above: Performed By: #### B MP3, HEMOG #### [facility] [address], [place] RBC (Bld) [#/Vol] 4.41 10*6/uL Normal 4.40-5.90 [facility] Comment on above: Performed By: #### B MP3, HEMOG #### [facility] [address], [place] WBC (Bld) [#/Vol] 6.8 10*3/uL Normal 3.6-10.7 [facility] Comment on above: Performed By: #### B MP3, HEMOG #### [facility] [address], [place] Basophil percentageon 2021 Bilirubin [Mass/Vol] 1.30 mg/dL 0.20-1.00 [facility] Work Phone: Comment on above: For patients on eltr ombopag therapy, use of Dimension [place] TBIL is not recommended. Chloride [Moles/Vol] 110 mmol/L 98-107 [facility] Work Phone: Glucose [Mass/Vol] 107 mg/dL 74-106 [facility] Work Phone: Comment on above: Fasting Glucose resu lt from 100 to 125 mg/dL suggests IMPAIRED HOMEOSTASIS per A.D.A. criteria. Potassium [Moles/Vol] 4.0 mmol/L 3.5-5.1 [facility] Work Phone: Protein [Mass/Vol] 7.3 g/dL 6.4-8.2 [facility] Work Phone: Sodium [Moles/Vol] 139 mmol/L 136-145 [facility] Work Phone: WBC (Bld) [#/Vol] 7.8 10*3/uL 4.4-11.0 [facility] Work Phone: Blood erythrocytes count (nu mber/volume)on 10-31-2021 RBC (Bld) [#/Vol] 4.25 10*6/uL 4.6-6.2 [facility] Work Phone: Blood hemoglobin measurement (mass/volume)on 10-31-2021 Hemoglobin (Bld) [Mass/Vol] 12.7 g/dL 13.0-16.5 [facility] Work Phone: Blood platelet mean volumeon 10-31-2021 Platelet mean volume (Bld) [Entitic vol] 9.8 fL 6.2-12.0 [facility] Work Phone: Determination of erythrocyte mean corpuscular volume (MCV)on 10-31-2021 MCV (RBC) [Entitic vol] 91.3 fL 80-94 [facility] Work Phone: Hematocrit Auto (Bld) [Volum e fraction]on 10-31-2021 Hematocrit (Bld) [Volume fraction] 38.8 % 40-54 [facility] Work Phone: Laboratory - Chemistry and C hemistry - challengeon 10-31-2021 ALP [Catalytic activity/Vol] 100 U/L 45-117 [facility] Work Phone: ALT [Catalytic activity/Vol] 43 U/L 16-61 [facility] Work Phone: CO2 [Moles/Vol] 26.0 mmol/L 21.0-32.0 [facility] Work Phone: Globulin (S) [Mass/Vol] 3.7 g/dL 2.2-4.2 [facility] Work Phone: Urea nitrogen/Creatinine [Mass ratio] 15.9 mg/mg 10-20 [facility] Work Phone: Laboratory - Hematology and Cell countson 10-31-2021 Erythrocyte distribution width (RBC) [Entitic vol] 46.2 fL 35.1-43.9 [facility] Work Phone: Erythrocyte distribution width (RBC) [Ratio] 13.8 % 11.6-14.6 [facility] Work Phone: MCH (RBC) [Entitic mass] 29.9 pg 27.0-32.0 [facility] Work Phone: MCHC Auto (RBC) [Mass/Vol]on 10-31-2021 MCHC (RBC) [Mass/Vol] 32.7 g/dL 32-36 [facility] Work Phone: No Panel Informationon 10-31 Estimated GFR (MDRD) Amer 89 mL/min >60 [facility] Work Phone: Comment on above: GFR Calc Estimated GFR (MDRD) Non-Af Amer 74 mL/min >60 [facility] Work Phone: Comment on above: Non- GFR Calc Thyroid Stimulating Hormone (TSH) 1.21 uIU/mL 0.358-3.74 [facility] Work Phone: Platelets bldon 10-31-2021 Platelets (Bld) [#/Vol] 233 10*3/uL 150-450 [facility] Work Phone: Serum or plasma albumin renu urement (mass/volume)on 10-31-2021 Albumin [Mass/Vol] 3.6 g/dL 3.2-5.0 [facility] Work Phone: Serum or plasma albumin/glob ulin mass ratioon 10-31-2021 Albumin/Globulin [Mass ratio] 1.0 {ratio} 0.9-2.4 [facility] Work Phone: Serum or plasma calcium renu urement (mass/volume)on 10-31-2021 Calcium [Mass/Vol] 8.5 mg/dL 8.5-10.1 [facility] Work Phone: Serum or plasma creatinine m easurement (mass/volume)on 10-31-2021 Creatinine [Mass/Vol] 1.07 mg/dL 0.70-1.30 [facility] Work Phone: Comment on above: The validity of the calculated GFR & GFRAA in patients over 70 years has not been determined. Clinical correlation is essential. Serum or plasma urea nitroge n measurement (mass/volume)on 10-31-2021 Urea nitrogen [Mass/Vol] 17 mg/dL 7-18 [facility] Work Phone: Thin prep Papanicolaou smear with manual screeningon 10-31-2021 Thin prep Papanicolaou smear with manual screening 19 U/L 15-37 [facility] Work Phone: Thin prep Papanicolaou smear with manual screening 3 5-15 [facility] Work Phone: No Panel Informationon 09-10 Troponin I High Sensitivity 294 pg/mL 3.0-78.0 [facility] Work Phone: Comment on above: Critical Result(s) C alled at: 01:34:51 09/10/2021 by: MANUEL Larios ONLINE PUBLISHER. Results read back by same. Please Note: New Test Units and Gender Specific Reference Ranges. For more information see Policy Stat Procedure [place] High Sensitivity Troponin (TNIH) and attachments. Absolute lymphocyte counton 09-09-2021 Lymphocytes Auto (Unsp spec) [#/Vol] 2.24 10*3/uL 0.83-4.51 [facility] Work Phone: Basophil percentageon 2021 Basophils/100 WBC (Bld) 0.5 % 0-1 [facility] Work Phone: Chloride [Moles/Vol] 108 mmol/L 98-107 [facility] Work Phone: Eosinophils/100 WBC (Bld) 0.8 % 0-5 [facility] Work Phone: Glucose [Mass/Vol] 151 mg/dL 74-106 [facility] Work Phone: Comment on above: Fasting Glucose resu lt greater than or equal to 126 mg/dL suggests DIABETES MELLITUS per A.D.A. criteria. Neutrophils (Bld) [#/Vol] 6.5 10*3/uL 2.0-7.7 [facility] Work Phone: Neutrophils/100 WBC (Bld) 67.9 % 47-70 [facility] Work Phone: Potassium [Moles/Vol] 3.9 mmol/L 3.5-5.1 [facility] Work Phone: Sodium [Moles/Vol] 142 mmol/L 136-145 [facility] Work Phone: WBC (Bld) [#/Vol] 9.5 10*3/uL 4.4-11.0 [facility] Work Phone: Blood erythrocytes count (nu mber/volume)on 09-09-2021 RBC (Bld) [#/Vol] 4.43 10*6/uL 4.6-6.2 [facility] Work Phone: Blood hemoglobin measurement (mass/volume)on 09-09-2021 Hemoglobin (Bld) [Mass/Vol] 13.3 g/dL 13.0-16.5 [facility] Work Phone: Blood lymphocytes/100 leukoc yteson 09-09-2021 Lymphocytes/100 WBC (Bld) 23.5 % 19-41 [facility] Work Phone: Blood monocytes/100 leukocyt eson 09-09-2021 Monocytes/100 WBC (Bld) 6.9 % 0-10 [facility] Work Phone: Blood platelet mean volumeon 09-09-2021 Platelet mean volume (Bld) [Entitic vol] 9.9 fL 6.2-12.0 [facility] Work Phone: Determination of erythrocyte mean corpuscular volume (MCV)on 09-09-2021 MCV (RBC) [Entitic vol] 91.0 fL 80-94 [facility] Work Phone: Glucose Glucometer (BldC) [M ass/Vol]on 09-09-2021 Glucose [Mass/Vol] 149 mg/dL 74-106 [facility] Work Phone: Comment on above: MANAGEMENT OF PATIEN T CARE PER NURSING PROTOCOL Hematocrit Auto (Bld) [Volum e fraction]on 09-09-2021 Hematocrit (Bld) [Volume fraction] 40.3 % 40-54 [facility] Work Phone: Laboratory - Chemistry and C hemistry - challengeon 09-09-2021 CO2 [Moles/Vol] 31.0 mmol/L 21.0-32.0 [facility] Work Phone: Urea nitrogen/Creatinine [Mass ratio] 18.5 mg/mg 10-20 [facility] Work Phone: Laboratory - Hematology and Cell countson 09-09-2021 Erythrocyte distribution width (RBC) [Entitic vol] 43.8 fL 35.1-43.9 [facility] Work Phone: Erythrocyte distribution width (RBC) [Ratio] 13.2 % 11.6-14.6 [facility] Work Phone: Immature granulocytes/100 WBC (Bld) 0.400 % 0.0-0.9 [facility] Work Phone: Comment on above: IG% - Immature Granu locytes (promyelocytes, myelocytes and metamyelocytes) > 1% indicates that a LEFT SHIFT is Present. MCH (RBC) [Entitic mass] 30.0 pg 27.0-32.0 [facility] Work Phone: Nucleated RBC/100 WBC (Bld) [Ratio] 0 % 0-5 [facility] Work Phone: MCHC Auto (RBC) [Mass/Vol]on 09-09-2021 MCHC (RBC) [Mass/Vol] 33.0 g/dL 32-36 [facility] Work Phone: No Panel Informationon 09-09 Estimated Creatinine Clearance Calc 51.88 ml/min [facility] Work Phone: Estimated GFR (MDRD) Amer 57 mL/min >60 [facility] Work Phone: Comment on above: GFR Calc Estimated GFR (MDRD) Non-Af Amer 47 mL/min >60 [facility] Work Phone: Comment on above: Non- GFR Calc Platelets bldon 09-09-2021 Platelets (Bld) [#/Vol] 264 10*3/uL 150-450 [facility] Work Phone: Serum or plasma calcium renu urement (mass/volume)on 09-09-2021 Calcium [Mass/Vol] 9.2 mg/dL 8.5-10.1 [facility] Work Phone: Serum or plasma creatinine m easurement (mass/volume)on 09-09-2021 Creatinine [Mass/Vol] 1.57 mg/dL 0.70-1.30 [facility] Work Phone: Comment on above: The validity of the calculated GFR & GFRAA in patients over 70 years has not been determined. Clinical correlation is essential. Serum or plasma urea nitroge n measurement (mass/volume)on 09-09-2021 Urea nitrogen [Mass/Vol] 29 mg/dL 7-18 [facility] Work Phone: Thin prep Papanicolaou smear with manual screeningon 09-09-2021 Thin prep Papanicolaou smear with manual screening 3 5-15 [facility] Work Phone: Basophil percentageon 2021 Chloride [Moles/Vol] 111 mmol/L 98-107 [facility] Work Phone: Cholesterol [Mass/Vol] 144 mg/dL <200 [facility] Work Phone: Comment on above: <200 mg/dL Desirable 200-240 mg/dL Borderline >240 mg/dL High Risk Glucose [Mass/Vol] 106 mg/dL 74-106 [facility] Work Phone: Comment on above: Fasting Glucose resu lt from 100 to 125 mg/dL suggests IMPAIRED HOMEOSTASIS per A.D.A. criteria. Potassium [Moles/Vol] 4.4 mmol/L 3.5-5.1 [facility] Work Phone: Sodium [Moles/Vol] 143 mmol/L 136-145 [facility] Work Phone: Triglyceride [Mass/Vol] 132 mg/dL [facility] Work Phone: Comment on above: The drugs N-Acetylcy steine and Metamizole may falsely depress this assay.Serum Triglycerides Reference Interval Normal <150 mg/dL Borderline high 150 - 199 mg/dL High 200 - 499 mg/dL Very High > or = 500 mg/dL WBC (Bld) [#/Vol] 9.0 10*3/uL 4.4-11.0 [facility] Work Phone: Blood erythrocytes count (nu mber/volume)on 08-01-2021 RBC (Bld) [#/Vol] 4.49 10*6/uL 4.6-6.2 [facility] Work Phone: Blood hemoglobin measurement (mass/volume)on 08-01-2021 Hemoglobin (Bld) [Mass/Vol] 13.8 g/dL 13.0-16.5 [facility] Work Phone: Blood platelet mean volumeon 08-01-2021 Platelet mean volume (Bld) [Entitic vol] 10.2 fL 6.2-12.0 [facility] Work Phone: Determination of erythrocyte mean corpuscular volume (MCV)on 08-01-2021 MCV (RBC) [Entitic vol] 93.1 fL 80-94 [facility] Work Phone: Hematocrit Auto (Bld) [Volum e fraction]on 08-01-2021 Hematocrit (Bld) [Volume fraction] 41.8 % 40-54 [facility] Work Phone: Laboratory - Chemistry and C hemistry - challengeon 08-01-2021 CO2 [Moles/Vol] 29.0 mmol/L 21.0-32.0 [facility] Work Phone: Urea nitrogen/Creatinine [Mass ratio] 19.4 mg/mg 10-20 [facility] Work Phone: Laboratory - Hematology and Cell countson 08-01-2021 Erythrocyte distribution width (RBC) [Entitic vol] 45.3 fL 35.1-43.9 [facility] Work Phone: Erythrocyte distribution width (RBC) [Ratio] 13.2 % 11.6-14.6 [facility] Work Phone: MCH (RBC) [Entitic mass] 30.7 pg 27.0-32.0 [facility] Work Phone: MCHC Auto (RBC) [Mass/Vol]on 08-01-2021 MCHC (RBC) [Mass/Vol] 33.0 g/dL 32-36 [facility] Work Phone: No Panel Informationon 08-01 Estimated GFR (MDRD) Amer 58 mL/min >60 [facility] Work Phone: Comment on above: GFR Calc Estimated GFR (MDRD) Non-Af Amer 48 mL/min >60 [facility] Work Phone: Comment on above: Non- GFR Calc Platelets bldon 08-01-2021 Platelets (Bld) [#/Vol] 276 10*3/uL 150-450 [facility] Work Phone: Serum or plasma calcium renu urement (mass/volume)on 08-01-2021 Calcium [Mass/Vol] 9.3 mg/dL 8.5-10.1 [facility] Work Phone: Serum or plasma cholesterol in HDL measurement (mass/volume)on 08-01-2021 Cholesterol in HDL [Mass/Vol] 49 mg/dL [facility] Work Phone: Comment on above: The drugs N-Acetylcy steine and Metamizole may falsely depress this assay. Reference Range HDL <40 mg/dL Low HDL Cholesterol HDL >or= 60 mg/dL High HDL Cholesterol Serum or plasma cholesterol in VLDL measurement (mass/volume)on 08-01-2021 Cholesterol in VLDL [Mass/Vol] 26 mg/dL 5-40 [facility] Work Phone: Serum or plasma creatinine m easurement (mass/volume)on 08-01-2021 Creatinine [Mass/Vol] 1.55 mg/dL 0.70-1.30 [facility] Work Phone: Comment on above: The validity of the calculated GFR & GFRAA in patients over 70 years has not been determined. Clinical correlation is essential. Serum or plasma low density lipoprotein (LDL) cholesterol measurement (mass/volume)on 08-01-2021 Cholesterol in LDL [Mass/Vol] 69 mg/dL 0-130 [facility] Work Phone: Serum or plasma urea nitroge n measurement (mass/volume)on 08-01-2021 Urea nitrogen [Mass/Vol] 30 mg/dL 7-18 [facility] Work Phone: Thin prep Papanicolaou smear with manual screeningon 08-01-2021 Thin prep Papanicolaou smear with manual screening 3 5-15 [facility] Work Phone: Basophil percentageon 2021 Creatinine [Mass/Vol] 1.2 mg/dL 0.70-1.30 [facility] Work Phone: No Panel Informationon 07-02 Bedside Estimated GFR (eGFR) > 60.0000 mL/min >60 [facility] Work Phone: ACT,Whole Bloodon 03-18-2021 ACT,Whole Blood 207 s High 90-134 [facility] Comment on above: Result Comment: ACTB O Performed by [employer] Elite[employer]IA ID: [id number] [place], [place] ACT testing is not intended for patients taking aprotonin, patients with hematocrits of <20% or >55%, patients using other types of anticoagulation medications, and patients with Lupus Anticoagulant. Performed By: #### A CTBO #### [facility] [employer] [facility] [address] [place] [address] ACT,Whole Blood 219 s High 90-134 [facility] Comment on above: Result Comment: ACTB O Performed by [employer] EliteCLIA ID: [id number] [place], [place] ACT testing is not intended for patients taking aprotonin, patients with hematocrits of <20% or >55%, patients using other types of anticoagulation medications, and patients with Lupus Anticoagulant. Performed By: #### A CTBO #### [facility] [employer] [facility] [address] [place] [address] Activated clotting timeOrder ed By: Zoie Gonzales on 03-18-2021 Activated Clotting Time 219 s High 90 - 134 s [facility] Work Phone: Comment on above: ACTBO Performed by [employer] EliteCLIA ID: [id number] [place], [place] ACT testing is not intended for patients taking aprotonin, patients with hematocrits of <20% or >55%, patients using other types of anticoagulation medications, and patients with Lupus Anticoagulant. Interpretation and review of laboratory results Abnormal [employer] Work Phone: Test Performed by [employer] [facility], [address] [place] [address] [facility] Work Phone: [facility] Work Phone: [phone] Activated Clotting Time 207 s High 90 - 134 s [facility] Work Phone: Comment on above: ACTBO Performed by [employer] Elite[employer] ID: [id number] [place], [place] ACT testing is not intended for patients taking aprotonin, patients with hematocrits of <20% or >55%, patients using other types of anticoagulation medications, and patients with Lupus Anticoagulant. Interpretation and review of laboratory results Abnormal [facility] Work Phone: Test Performed by [facility], [facility] [place] [address] [facility] Work Phone: [facility] Work Phone: CBCOrdered By: Milagro escobar on 03-18-2021 Hematocrit (Bld) [Volume fraction] 35.6 % Low 40.0 - 52.0 % [employer] Work Phone: 1() Hemoglobin.gastrointes tinal spec 1 Ql (Stl) 12.1 g/dL Low 13.0 - 18.0 g/dL [employer] Work Phone: 1() Interpretation and review of laboratory results Abnormal [employer] Work Phone: () MCH (RBC) [Entitic mass] 30.5 pg 26.0 - 34.0 pg [employer] Work Phone: 1() MCHC (RBC) [Mass/Vol] 34.2 % 32.0 - 36.0 % [employer] Work Phone: ( MCV (RBC) [Entitic vol] 89.3 fL 80.0 - 98.0 fL [employer] Work Phone: 1() Platelet distribution width (Bld) [Ratio] 14.8 % High 11.5 - 14.5 % [employer] Work Phone: () Platelet mean volume (Bld) [Entitic vol] 7.9 fL 7.4 - 10.4 fL [employer] Work Phone: 1() Platelets (Bld) [#/Vol] 241 10*3/uL 140 - 440 10*3/uL [employer] Work Phone: () RBC (Bld) [#/Vol] 3.98 10*6/uL Low 4.40 - 5.90 10*6/uL [employer] Work Phone: () WBC (Bld) [#/Vol] 8.6 10*3/uL 3.6 - 10.7 10*3/uL [employer] Work Phone: 1() Test Performed by [facility] [employer] [facility], [address] [place] [address] [facility] Work Phone: () [facility] Work Phone: 1() Comp Panel with Mg Reflexon 03-18-2021 Calcium [Mass/Vol] 8.4 mg/dL Normal 8.4-10.4 [facility] Comment on above: Performed By: #### C MP3M, HEMOG #### [facility] [address], [place] ALP [Catalytic activity/Vol] 83 U/L Normal 38-126 [facility] Comment on above: Performed By: #### C MP3M, HEMOG #### [facility] [address], [place] ALT [Catalytic activity/Vol] 17 U/L Normal 0-49 [facility] Comment on above: Result Comment: The ALT test is performed by an updated assay method. Please note that the reference intervals have been changed and are now sex specific. Performed By: #### C MP3M, HEMOG #### [facility] [address], [place] Anion gap [Moles/Vol] 7 mmol/L Normal 3-13 [facility] Comment on above: Performed By: #### C MP3M, HEMOG #### [facility] [address], [place] AST [Catalytic activity/Vol] 21 U/L Normal 15-46 [facility] Comment on above: Performed By: #### C MP3M, HEMOG #### [facility] [address], [place] Bilirubin [Mass/Vol] 1.0 mg/dL Normal 0.2-1.3 [facility] Comment on above: Performed By: #### C MP3M, HEMOG #### [facility] [address], [place] CO2 [Moles/Vol] 21 mmol/L Low 22-30 [facility] Comment on above: Performed By: #### C MP3M, HEMOG #### [facility] [address], [place] Glucose [Mass/Vol] 114 mg/dL High 70-100 [facility] Comment on above: Performed By: #### C MP3M, HEMOG #### [facility] [address], [place] Protein [Mass/Vol] 6.1 g/dL Low 6.3-8.2 [facility] Comment on above: Performed By: #### C MP3M, HEMOG #### [facility] [address] [place] [address] Urea nitrogen [Mass/Vol] 19 mg/dL High 7-17 [facility] Comment on above: Performed By: #### C MP3M, HEMOG #### [facility] [address] [place] [address] Creatinine [Mass/Vol] 0.98 mg/dL Normal 0.52-1.25 [facility] Comment on above: Performed By: #### C MP3M, HEMOG #### [place] [address] [place] [address] GFR/1.73 sq M.predicted among blacks MDRD (S/P/Bld) [Vol rate/Area] mL/min/{1.73_m2} Normal >60 [facility] Comment on above: Performed By: #### C MP3M, HEMOG #### [address] [address] [place] [address] GFR/1.73 sq M.predicted among non-blacks MDRD (S/P/Bld) [Vol rate/Area] 80.4 mL/min/{1.73_m2} Normal >60 [facility] Comment on above: Result Comment: KDIG O [...] Performed By: #### C MP3M, HEMOG #### [address] [address], [place] Albumin [Mass/Vol] 3.4 g/dL Low 3.5-5.0 [facility] Comment on above: Performed By: #### C MP3M, HEMOG #### [facility] [address], [place] Chloride [Moles/Vol] 112 mmol/L High 98-107 [facility] Comment on above: Performed By: #### C MP3M, HEMOG #### [facility] [address], [place] Potassium [Moles/Vol] 4.0 mmol/L Normal 3.5-5.1 [facility] Comment on above: Performed By: #### C MP3M, HEMOG #### [facility] [address], [place] Sodium [Moles/Vol] 139 mmol/L Normal 135-145 [facility] Comment on above: Performed By: #### C MP3M, HEMOG #### [facility] [address], [place] Comprehensive Metabolic Pane l w/ Reflex to MGOrdered By: Milagro Jaimes on 03-18-2021 Albumin [Mass/Vol] 3.4 g/dL Low 3.5 - 5.0 g/dL [facility] Work Phone: [phone] ALP (Bld) [Catalytic activity/Vol] 83 U/L 38 - 126 U/L [facility] Work Phone: [phone] ALT [Catalytic activity/Vol] 17 U/L 0 - 49 U/L [facility] Work Phone: [phone] Comment on above: The ALT test is perf ormed by an updated assay method. Please note that the reference intervals have been changed and are now sex specific. Anion gap [Moles/Vol] 7 mmol/L 3 - 13 mmol/L [facility] Work Phone: AST [Catalytic activity/Vol] 21 U/L 15 - 46 U/L [facility] Work Phone: [phone] Bilirubin [Mass/Vol] 1.0 mg/dL 0.2 - 1 .3 mg/dL [facility] Work Phone: Calcium [Mass/Vol] 8.4 mg/dL 8.4 - 10. 4 mg/dL [facility] Work Phone: [phone] Chloride [Moles/Vol] 112 mmol/L High 98 - 10 7 mmol/L [facility] Work Phone: [phone] CO2 [Moles/Vol] 21 mmol/L Low 22 - 30 mmol/L [facility] Work Phone: [phone] Creatinine [Mass/Vol] 0.98 mg/dL 0.52 - 1.25 mg/dL [facility] Work Phone: [phone] EGFR IF NonAfrican [place] 80.4 mL/min >60 [facility] Work Phone: [phone] Comment on above: KDIGO guidelines pro vide [...] 6.1 g/dL Low 6.3 - 8.2 g/dL [facility] Work Phone: GFR/1.73 sq M.predicted among blacks MDRD (S/P/Bld) [Vol rate/Area] mL/min/{1.73_m2} >60 mL/min [facility] Work Phone: [phone] Glucose [Mass/Vol] 114 mg/dL High 70 - 100 mg/dL [facility] Work Phone: Interpretation and review of laboratory results Abnormal [facility] Work Phone: [phone] Potassium [Moles/Vol] 4.0 mmol/L 3.5 - 5.1 mmol/L [facility] Work Phone: Sodium [Moles/Vol] 139 mmol/L 135 - 145 mmol/L [facility] Work Phone: Urea nitrogen (BldV) [Mass/Vol] 19 mg/dL High 7 - 17 mg/dL [facility] Work Phone: Test Performed by [facility], [address], [place] [id number] [place] [address] Work Phone: [facility] Work Phone: Hemogramon 03-18-2021 Erythrocyte distribution width (RBC) [Ratio] 14.8 % High 11.5-14.5 [facility] Comment on above: Performed By: #### C MP3M, HEMOG #### [address] [address] [place], [place] Hematocrit (Bld) [Volume fraction] 35.6 % Low 40.0-52.0 [facility] Comment on above: Performed By: #### C MP3M, HEMOG #### [address] [address] [place], [place] Hemoglobin (Bld) [Mass/Vol] 12.1 g/dL Low 13.0-18.0 [facility] Comment on above: Performed By: #### C MP3M, HEMOG #### [address] [address] [place], [place] MCH (RBC) [Entitic mass] 30.5 pg Normal 26.0-34.0 [facility] Comment on above: Performed By: #### C MP3M, HEMOG #### [address] [address] [place] MCHC 34.2 % Normal 32.0-36.0 [facility] Comment on above: Performed By: #### C MP3M, HEMOG #### [address] MCV (RBC) [Entitic vol] 89.3 fL Normal 80.0-98.0 [facility] Comment on above: Performed By: #### C MP3M, HEMOG #### [facility] [employer] [facility] [address], [place] Platelet mean volume (Bld) [Entitic vol] 7.9 fL Normal 7.4-10.4 [facility] Comment on above: Performed By: #### C MP3M, HEMOG #### [facility] [address], [place] Platelets (Bld) [#/Vol] 241 10*3/uL Normal 140-440 [facility] Comment on above: Performed By: #### C MP3M, HEMOG #### [facility] [address], [place] RBC (Bld) [#/Vol] 3.98 10*6/uL Low 4.40-5.90 [facility] Comment on above: Performed By: #### C MP3M, HEMOG #### [facility] [employer] [facility] [address], [place] WBC (Bld) [#/Vol] 8.6 10*3/uL Normal 3.6-10.7 [facility] Comment on above: Performed By: #### C MP3M, HEMOG #### [facility] [employer] [facility] [address], [place] CARDIAC CATH NURSING LOGOrde red By: 3m Scanning on 03-17-2021 [facility] Work Phone: Catheterization and angiogra phy procedure details panelOrdered By: Zoie Gonzales on 03-17-2021 [facility] CARDIAC CATHETERIZATION Patient: Shannon [...] SURGERY: Catheterization with coronary intervention (12/04/2014). Catheterization (2015). Catheterization (2017). PROCEDURE IN DETAIL: Study status: [...] obtained in mul (more content not included)... [employer] Work Phone: [place] Incoming Cardiology Results From Bliips/Denae - 03/17/2021 12:23 PM EDT [facility] CARDIAC CATHETERIZATION Patient: Shannon Olson Procedure Date: [...] projections. 6. Janeth (more content not included)... 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 Car Wash Attendant Report Following intervention, there is a residual [...] the ri (more content not included)... Normal [facility] Basic Metabolic Panelon 10- Anion gap [Moles/Vol] 7 mmol/L Normal 3-13 [facility] Comment on above: Performed By: #### B MP3, HEMOG #### [facility] [employer] [address] [address] [place], [place] Calcium [Mass/Vol] 9.2 mg/dL Normal 8.4-10.4 [facility] Comment on above: Performed By: #### Katie MP3, HEMOG #### [address] CO2 [Moles/Vol] 26 mmol/L Normal 22-30 [facility] Comment on above: Performed By: #### Katie MP3, HEMOG #### [facility] [employer] [address] [address] [place], [place] Creatinine [Mass/Vol] 1.26 mg/dL High 0.52-1.25 [facility] Comment on above: Performed By: #### B MP3, HEMOG #### [facility] [employer] [address] [address] [place], [place] GFR/1.73 sq M.predicted among blacks MDRD (S/P/Bld) [Vol rate/Area] 68.7 mL/min/{1.73_m2} Normal >60 [facility] Comment on above: Performed By: #### B MP3, HEMOG #### [facility] [address] [place] [address] GFR/1.73 sq M.predicted among non-blacks MDRD (S/P/Bld) [Vol rate/Area] 59.3 mL/min/{1.73_m2} Abnormal >60 [facility] Comment on above: Result Comment: KDIG O [...] Performed By: #### B MP3, HEMOG #### [address] [address] [place] [address] Glucose [Mass/Vol] 107 mg/dL High 70-100 [facility] Comment on above: Performed By: #### B MP3, HEMOG #### [address] [address] [place] [address] Urea nitrogen [Mass/Vol] 24 mg/dL High 7-17 [facility] Comment on above: Performed By: #### B MP3, HEMOG #### [address] [address] [place] [address] Chloride [Moles/Vol] 106 mmol/L Normal 98-107 [facility] Comment on above: Performed By: #### B MP3, HEMOG #### [address] [address] Potassium [Moles/Vol] 4.1 mmol/L Normal 3.5-5.1 [facility] Comment on above: Result Comment: Slig htly hemolysed, interpret with caution. Performed By: #### B MP3, HEMOG #### [facility] [address] [place] [address] Sodium [Moles/Vol] 140 mmol/L Normal 135-145 [facility] Comment on above: Performed By: #### B MP3, HEMOG #### [facility] [address] [place] [address] Basic Metabolic PanelOrdered By: [place] on 03-10-2021 Anion gap [Moles/Vol] 7 mmol/L 3 - 13 mmol/L [facility] Work Phone: Calcium [Mass/Vol] 9.2 mg/dL 8.4 - 10. 4 mg/dL [employer] Work Phone: Chloride [Moles/Vol] 106 mmol/L 98 - 10 7 mmol/L [facility] Work Phone: CO2 [Moles/Vol] 26 mmol/L 22 - 30 mmol/L [facility] Work Phone: Creatinine [Mass/Vol] 1.26 mg/dL High 0.52 - 1.25 mg/dL [employer] Work Phone: EGFR IF NonAfrican [place] 59.3 mL/min Abnormal >60 [facility] Work Phone: Comment on above: KDIGO [...] rate/Area] 68.7 mL/min/{1.73_m2} >60 [facility] Work Phone: 1 Glucose [Mass/Vol] 107 mg/dL High 70 - 100 mg/dL [facility] Work Phone: Interpretation and review of laboratory results Abnormal [facility] Work Phone: Potassium [Moles/Vol] 4.1 mmol/L 3.5 - 5.1 mmol/L [facility] Work Phone: Comment on above: Slightly hemolysed, interpret with caution. Sodium [Moles/Vol] 140 mmol/L 135 - 145 mmol/L [facility] Work Phone: Urea nitrogen (BldV) [Mass/Vol] 24 mg/dL High 7 - 17 mg/dL [facility] Work Phone: Test Performed by [facility], [address] [place] [address] [facility] Work Phone: [facility] Work Phone: CBCOrdered By: [place] on 03-10-2021 Hematocrit (Bld) [Volume fraction] 39.6 % Low 40.0 - 52.0 % [facility] Work Phone: Hemoglobin.gastrointes tinal spec 1 Ql (Stl) 13.3 g/dL 13.0 - 18.0 g/dL [facility] Work Phone: Interpretation and review of laboratory results Abnormal [facility] Work Phone: MCH (RBC) [Entitic mass] 30.3 pg 26.0 - 34.0 pg [facility] Work Phone: MCHC (RBC) [Mass/Vol] 33.5 % 32.0 - 36.0 % [facility] Work Phone: MCV (RBC) [Entitic vol] 90.3 fL 80.0 - 98.0 fL [facility] Work Phone: Platelet distribution width (Bld) [Ratio] 15.2 % High 11.5 - 14.5 % [facility] Work Phone: [phone] Platelet mean volume (Bld) [Entitic vol] 8.0 fL 7.4 - 10.4 fL [employer] Work Phone: 1() 222 Platelets (Bld) [#/Vol] 267 10*3/uL 140 - 440 10*3/uL [facility] Work Phone: 1() 222 RBC (Bld) [#/Vol] 4.39 10*6/uL Low 4.40 - 5.90 10*6/uL [employer] Work Phone: 1() 222 WBC (Bld) [#/Vol] 9.2 10*3/uL 3.6 - 10.7 10*3/uL [employer] Work Phone: [phone] Test Performed by [facility], [address] [place] [address] [facility] Work Phone: 1() [facility] Work Phone: [phone] Hemogramon 03-10-2021 Erythrocyte distribution width (RBC) [Ratio] 15.2 % High 11.5-14.5 [facility] Comment on above: Performed By: #### B MP3, HEMOG #### [facility] [employer] [address] [address] [place] [address] Hematocrit (Bld) [Volume fraction] 39.6 % Low 40.0-52.0 [facility] Comment on above: Performed By: #### B MP3, HEMOG #### [facility] [employer] [address] [address] [place] [address] Hemoglobin (Bld) [Mass/Vol] 13.3 g/dL Normal 13.0-18.0 [facility] Comment on above: Performed By: #### B MP3, HEMOG #### [facility] [employer] [address] [address] MCH (RBC) [Entitic mass] 30.3 pg Normal 26.0-34.0 [facility] Comment on above: Performed By: #### B MP3, HEMOG #### [address] [address] MCHC 33.5 % Normal 32.0-36.0 [facility] Comment on above: Performed By: #### B MP3, HEMOG #### [facility] [address], [place] MCV (RBC) [Entitic vol] 90.3 fL Normal 80.0-98.0 [facility] Comment on above: Performed By: #### B MP3, HEMOG #### [facility] [address], [place] Platelet mean volume (Bld) [Entitic vol] 8.0 fL Normal 7.4-10.4 [facility] Comment on above: Performed By: #### B MP3, HEMOG #### [facility] [address], [place] Platelets (Bld) [#/Vol] 267 10*3/uL Normal 140-440 [facility] Comment on above: Performed By: #### B MP3, HEMOG #### [facility] [address], [place] RBC (Bld) [#/Vol] 4.39 10*6/uL Low 4.40-5.90 [facility] Comment on above: Performed By: #### B MP3, HEMOG #### [facility] [address], [place] WBC (Bld) [#/Vol] 9.2 10*3/uL Normal 3.6-10.7 [facility] Comment on above: Performed By: #### B MP3, HEMOG #### [facility] [address], [place] CNCOon 09-26-2020 CNCO Letter Text Normal [facility] Basic Metabolic Panelon 04-2 Anion gap [Moles/Vol] 10 Normal [facility] Comment on above: Performed By: #### H EMDF, BMP3, LIPA4, TROPN #### [facility] [address] [place] [address] Calcium [Mass/Vol] 9.0 mg/dL Normal 8.4-10.4 [facility] Comment on above: Performed By: #### H EMDF, BMP3, LIPA4, TROPN #### [facility] [address] [place] [address] CO2 [Moles/Vol] 25 mmol/L Normal 22-30 [facility] Comment on above: Performed By: #### H EMDF, BMP3, LIPA4, TROPN #### [facility] [address] [place] [address] Creatinine [Mass/Vol] 0.88 mg/dL Normal 0.52-1.25 [facility] Comment on above: Performed By: #### H EMDF, BMP3, LIPA4, TROPN #### [facility] [address] [place] [address] GFR/1.73 sq M predicted among blacks MDRD (S/P/Bld) [Vol rate/Area] mL/min/{1.73_m2} Normal >60 [facility] Comment on above: Performed By: #### H EMDF, BMP3, LIPA4, TROPN #### [facility] [address] [place] [address] GFR/1.73 sq M predicted among non-blacks MDRD (S/P/Bld) [Vol rate/Area] mL/min/{1.73_m2} Normal >60 [facility] Comment on above: Result Comment: Sour ce- MDRD equation with creatinine calibration to IDMS(NKDEP) eGFR not recommended for drug dose adjustment Performed By: #### H EMDF, BMP3, LIPA4, TROPN #### [facility] [address] [place] [address] Glucose [Mass/Vol] 128 mg/dL High 70-100 [facility] Comment on above: Performed By: #### H EMDF, BMP3, LIPA4, TROPN #### [facility] [address] [place] [address] Urea nitrogen [Mass/Vol] 19 mg/dL Normal 7-20 [facility] Comment on above: Performed By: #### H EMDF, BMP3, LIPA4, TROPN #### [facility] [address] [place] [address] Chloride [Moles/Vol] 108 mmol/L High 98-107 [facility] Comment on above: Performed By: #### H EMDF, BMP3, LIPA4, TROPN #### [facility] [address] [place] [address] Potassium [Moles/Vol] 3.6 mmol/L Normal 3.5-5.1 [facility] Comment on above: Performed By: #### H EMDF, BMP3, LIPA4, TROPN #### [facility] [address] [place] [address] Sodium [Moles/Vol] 143 mmol/L Normal 135-145 [facility] Comment on above: Performed By: #### H EMDF, BMP3, LIPA4, TROPN #### [facility] [address] [place] [address] Anion gap [Moles/Vol] 10 mmol/L [place], [place] Calcium [Mass/Vol] 9.0 mg/dL 8.4 - 10. 4 mg/dL [place] Chloride [Moles/Vol] 108 mmol/L High 98 - 10 7 mmol/L [place] CO2 [Moles/Vol] 25 mmol/L 22 - 30 mmol/L [place] Creatinine [Mass/Vol] 0.88 mg/dL 0.52 - 1.25 mg/dL [place] EGFR IF NonAfrican [place] >60.0 >60 mL/min [place] Comment on above: Source- MDRD equatio n with creatinine calibration to IDMS(NKDEP) eGFR not recommended for drug dose adjustment GFR/1.73 sq M predicted among blacks MDRD (S/P/Bld) [Vol rate/Area] mL/min/{1.73_m2} >60 mL/min [place] Glucose [Mass/Vol] 128 mg/dL High 70 - 100 mg/dL [place] Interpretation and review of laboratory results Abnormal [place] Potassium [Moles/Vol] 3.6 mmol/L 3.5 - 5.1 mmol/L [place] Sodium [Moles/Vol] 143 mmol/L 135 - 145 mmol/L [place] Urea nitrogen [Mass/Vol] 19 mg/dL 7 - 20 mg/dL [place] CR Chest Portableon 09-15-19 20 CR Chest Portable Patient Name: SHANNON OLSON Diagnostic Radiology Exam Date/Time 09/15/2019 02:35:21 EDT Exam CR Chest Portable Ordering Physician MD VARSHA, JUSTEN Accession Number [id number] CPT4 Codes 56616 () Reason For Exam chest pain Report [...] Transcribed Date and Time: 09/15/2019 2:44 Normal [facility] Hemogram (CBC) w/Auto Diffon 09-15-2019 Absolute Baso # 0.0 10*3/uL 0 - 0.2 10*3/uL [place] Absolute Neut # 5.8 10*3/uL 1.8 - 7 10*3/uL [place] Basophils/100 WBC (Bld) 0.4 % 0 - 2 % [place] Eosinophils (Bld) [#/Vol] 0.1 10*3/uL 0 - 0.5 10*3/uL [place] Eosinophils/100 WBC (Bld) 1.5 % 1 - 6 % [place] Erythrocyte distribution width (RBC) [Ratio] 15.2 % High 11.5 - 14.5 % [place] Granulocytes/100 WBC (Bld) 72.1 % 40 - 80 % [place] Hematocrit (Bld) [Volume fraction] 37.9 % Low 40 - 52 % [place] Hemoglobin (Bld) [Mass/Vol] 12.4 g/dL Low 13 - 18 g/dL [place] Interpretation and review of laboratory results Abnormal [place] Lymphocytes (Bld) [#/Vol] 1.6 10*3/uL 1 - 4.3 10*3/uL [place] Lymphocytes/100 WBC (Bld) 19.5 % Low 20 - 40 % [place] MCH (RBC) [Entitic mass] 28.5 pg 26 - 34 pg [place] MCHC (RBC) [Mass/Vol] 32.8 % 32 - 36 % [place] MCV (RBC) [Entitic vol] 86.9 fL 80 - 98 fL [place] Monocytes (Bld) [#/Vol] 0.5 10*3/uL 0 - 0.8 10*3/uL [place] Monocytes/100 WBC (Bld) 6.5 % 2 - 10 % [place] Platelet mean volume (Bld) [Entitic vol] 8.0 fL 7.4 - 10.4 fL [place] Platelets (Bld) [#/Vol] 232 10*3/uL 140 - 440 10*3/uL [place] RBC (Bld) [#/Vol] 4.36 10*6/uL Low 4.4 - 5.9 10*6/uL [place] WBC (Bld) [#/Vol] 8.1 10*3/uL 3.6 - 10.7 10*3/uL [place] Test Performed by [facility], [address], [place], [place] [address] [place] Hemogram w/ Autodiffon 09-14 Abs Baso Cnt 0.0 10*3/uL Normal 0.0-0.2 [facility] Comment on above: Performed By: #### H EMDF, BMP3, LIPA4, TROPN #### [facility] [address] [place] [address] Abs Neutrophile Cnt 5.8 10*3/uL Normal 1.8-7.0 [facility] Comment on above: Performed By: #### H EMDF, BMP3, LIPA4, TROPN #### [facility] [address] [place] [address] Basophils/100 WBC (Bld) 0.4 % Normal 0.0-2.0 [facility] Comment on above: Performed By: #### H EMDF, BMP3, LIPA4, TROPN #### [facility] [address] [place] [address] Eosinophils (Bld) [#/Vol] 0.1 10*3/uL Normal 0.0-0.5 [facility] Comment on above: Performed By: #### H EMDF, BMP3, LIPA4, TROPN #### [facility] [address] [place] [address] Eosinophils/100 WBC (Bld) 1.5 % Normal 1.0-6.0 [facility] Comment on above: Performed By: #### H EMDF, BMP3, LIPA4, TROPN #### [facility] [address] [place] [address] Erythrocyte distribution width (RBC) [Ratio] 15.2 % High 11.5-14.5 [facility] Comment on above: Performed By: #### H EMDF, BMP3, LIPA4, TROPN #### [facility] [address] [place] [address] Granulocytes/100 WBC (Bld) 72.1 % Normal 40.0-80.0 [facility] Comment on above: Performed By: #### H EMDF, BMP3, LIPA4, TROPN #### [facility] [address] [place] [address] Hematocrit (Bld) [Volume fraction] 37.9 % Low 40.0-52.0 [facility] Comment on above: Performed By: #### H EMDF, BMP3, LIPA4, TROPN #### [facility] [address] [place] [address] Hemoglobin (Bld) [Mass/Vol] 12.4 g/dL Low 13.0-18.0 [facility] Comment on above: Performed By: #### H EMDF, BMP3, LIPA4, TROPN #### [facility] [address] [place] [address] Lymphocytes (Bld) [#/Vol] 1.6 10*3/uL Normal 1.0-4.3 [facility] Comment on above: Performed By: #### H EMDF, BMP3, LIPA4, TROPN #### [facility] [address] [place] [address] Lymphocytes/100 WBC (Bld) 19.5 % Low 20.0-40.0 [facility] Comment on above: Performed By: #### H EMDF, BMP3, LIPA4, TROPN #### [facility] [address] [place] [address] MCH (RBC) [Entitic mass] 28.5 pg Normal 26.0-34.0 [facility] Comment on above: Performed By: #### H EMDF, BMP3, LIPA4, TROPN #### [facility] [address] [place] [address] MCHC (RBC) [Mass/Vol] 32.8 % Normal 32.0-36.0 [facility] Comment on above: Performed By: #### H EMDF, BMP3, LIPA4, TROPN #### [facility] [address] [place] [address] MCV (RBC) [Entitic vol] 86.9 fL Normal 80.0-98.0 [facility] Comment on above: Performed By: #### H EMDF, BMP3, LIPA4, TROPN #### [facility] [address] [place] [address] Monocytes (Bld) [#/Vol] 0.5 10*3/uL Normal 0.0-0.8 [facility] Comment on above: Performed By: #### H EMDF, BMP3, LIPA4, TROPN #### [facility] [address] [place] [address] Monocytes/100 WBC (Bld) 6.5 % Normal 2.0-10.0 [facility] Comment on above: Performed By: #### H EMDF, BMP3, LIPA4, TROPN #### [facility] [address] [place] [address] Platelet mean volume (Bld) [Entitic vol] 8.0 fL Normal 7.4-10.4 [facility] Comment on above: Performed By: #### H EMDF, BMP3, LIPA4, TROPN #### [facility] [address] [place] [address] Platelets (Bld) [#/Vol] 232 10*3/uL Normal 140-440 [facility] Comment on above: Performed By: #### H EMDF, BMP3, LIPA4, TROPN #### [facility] [address] [place] [address] RBC (Bld) [#/Vol] 4.36 10*6/uL Low 4.40-5.90 [facility] Comment on above: Performed By: #### H EMDF, BMP3, LIPA4, TROPN #### [facility] [address] [place] [address] WBC (Bld) [#/Vol] 8.1 10*3/uL Normal 3.6-10.7 [facility] Comment on above: Performed By: #### H EMDF, BMP3, LIPA4, TROPN #### [facility] [address] [place] [address] Lipaseon 09-15-2019 Lipase [Catalytic activity/Vol] 97 U/L Normal 23-300 [facility] Comment on above: Performed By: #### H EMDF, BMP3, LIPA4, TROPN #### [facility] [address] [place] [address] Lipase [Catalytic activity/Vol] 97 U/L 23 - 300 U/L [place], [place] Otheron 09-15-2019 Test Performed by [facility], [address] [place] [address] [place], [place] Troponinon 09-15-2019 Troponin I.cardiac [Mass/Vol] 0.031 ng/mL 0 - 0.034 ng/mL [place] Comment on above: . Test Performed by [facility], [address] [place] [address] [place] Troponin Ion 09-15-2019 Troponin I.cardiac [Mass/Vol] 0.031 ng/mL Normal 0.000-0.03 4 [facility] Comment on above: Result Comment: . Performed By: #### T ROPN #### [facility] [address] [place] [address] Troponin I.cardiac [Mass/Vol] 0.030 ng/mL Normal 0.000-0.03 4 [facility] Comment on above: Result Comment: . Performed By: #### H EMDF, BMP3, LIPA4, TROPN #### [facility] [address] [place] [address] Troponin x1on 09-15-2019 Troponin I.cardiac [Mass/Vol] 0.030 ng/mL 0 - 0.034 ng/mL [place] Comment on above: . Test Performed by [facility], [address], [place], [place] [address] [place] XR CHEST PORTABLEon 09-15-19 20 Patient Name: SHANNON OLSON ---Diagnostic Radiology--- Exam Date/Time 09/15/2019 02:35:21 EDT Exam CR Chest Portable Ordering Physician MD VARSHA, [facility] Accession Number [id number] CPT4 Codes 70153 () Reason For Exam chest pain Report [...] JEFFREY Transcribed Date and Time: 09/15/2019 2:44 [place], [place] Incoming Rad[facility] - 09/15/2019 2:44 AM EDT Patient Name: SHANNON OLSON ---Diagnostic Radiology--- Exam Date/Time 09/15/2019 02:35:21 EDT Exam CR Chest Portable Ordering Physician MD VARSHA JUSTEN Accession Number [id number] CPT4 Codes 43409 () Reason For Exam chest pain Report [...] JEFFREY Transcribed Date and Time: 09/15/2019 2:44 [place], [place] CBCon 09-09-2019 Erythrocyte distribution width (RBC) [Ratio] 15.2 % High 11.5 - 14.5 % [place] Comment on above: Test Performed by [facility], [address] [place] [address] Hematocrit (Bld) [Volume fraction] 37.8 % Low 40 - 52 % [place], [place] Comment on above: Test Performed by [facility], [address] [place] [address] Hemoglobin (Bld) [Mass/Vol] 12.7 g/dL Low 13 - 18 g/dL [place], [place] Comment on above: Test Performed by [facility], [address] [place] [address] Interpretation and review of laboratory results Abnormal [place] MCH (RBC) [Entitic mass] 28.9 pg 26 - 34 pg [place], [place] Comment on above: Test Performed by [facility], [facility] [place] [address] MCHC (RBC) [Mass/Vol] 33.5 % 32 - 36 % [place], [place] Comment on above: Test Performed by [facility], [address] [place] [address] MCV (RBC) [Entitic vol] 86.2 fL 80 - 98 fL [place], [place] Comment on above: Test Performed by [facility], [address] [place] [address] Platelet mean volume (Bld) [Entitic vol] 7.6 fL 7.4 - 10.4 fL [place] Comment on above: Test Performed by [facility], [address] [place] [address] Platelets (Bld) [#/Vol] 266 10*3/uL 140 - 440 10*3/uL [place] Comment on above: Test Performed by [facility], [address] [place] [address] RBC (Bld) [#/Vol] 4.39 10*6/uL Low 4.4 - 5.9 10*6/uL [place] Comment on above: Test Performed by [facility], [address] [place] [address] WBC (Bld) [#/Vol] 9.5 10*3/uL 3.6 - 10.7 10*3/uL [place] Test Performed by [id number] [place] [address] Comprehensive Metabolic Pane l w/ Reflex to MGon 09-09-2019 Albumin [Mass/Vol] 3.6 g/dL 3.5 - 5 g/dL [place] Comment on above: Test Performed by [facility], [address] [place] [address] ALP [Catalytic activity/Vol] 87 U/L 38 - 126 U/L [place] Comment on above: Test Performed by [facility], [address] [place] [address] ALT [Catalytic activity/Vol] 50 U/L High 0 - 49 U/L [place], [place] Comment on above: Test Performed by [facility], [address] [place] [address] The ALT test is performed by an updated assay method. Please note that the reference intervals have been changed and are now sex specific. Anion gap [Moles/Vol] 8 mmol/L [place], [place] Comment on above: Test Performed by [facility], [facility] [place] [address] AST [Catalytic activity/Vol] 40 U/L 15 - 46 U/L [place], [place] Comment on above: Test Performed by [facility], [address] [place] [address] Bilirubin Ql (U) 1.4 mg/dL High 0.2 - 1.3 mg/dL [place], [place] Comment on above: Test Performed by [facility], [address] [place] [address] Calcium [Mass/Vol] 8.8 mg/dL 8.4 - 10. 4 mg/dL [place], [place] Comment on above: Test Performed by [facility], [facility] [place] [address] Chloride [Moles/Vol] 106 mmol/L 98 - 10 7 mmol/L [place] Comment on above: Test Performed by [facility], [facility] [place] [address] CO2 [Moles/Vol] 25 mmol/L 22 - 30 mmol/L [place] Comment on above: Test Performed by [facility], [facility] [place] [address] Creatinine [Mass/Vol] 1.03 mg/dL 0.52 - 1.25 mg/dL [place] Comment on above: Test Performed by [facility], [facility] [place] [address] EGFR IF NonAfrican [place] >60.0 >60 mL/min [place] Comment on above: Test Performed by [facility], [facility] [place] [address] Source- MDRD equation with creatinine calibration to IDMS(NKDEP) eGFR not recommended for drug dose adjustment GFR/1.73 sq M predicted among blacks MDRD (S/P/Bld) [Vol rate/Area] mL/min/{1.73_m2} >60 mL/min [place] Comment on above: Test Performed by [facility], [facility] [place] [address] Glucose [Mass/Vol] 111 mg/dL High 70 - 100 mg/dL [place] Comment on above: Test Performed by [facility], [address] [place] [place] [address] Interpretation and review of laboratory results Abnormal [place] Potassium [Moles/Vol] 3.7 mmol/L 3.5 - 5.1 mmol/L [place] Comment on above: Test Performed by [facility], [address] [place] [address] Protein [Mass/Vol] 6.4 g/dL 6.3 - 8.2 g/dL [place] Comment on above: Test Performed by [facility], [address] [place] [address] Sodium [Moles/Vol] 140 mmol/L 135 - 145 mmol/L [place] Urea nitrogen [Mass/Vol] 23 mg/dL High 7 - 20 mg/dL [place], [place] Comment on above: Test Performed by [facility], [address] [place] [address] Test Performed by [facility], [address] 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: YOLANDA : 1955 Requested By: YEMI SOUTH Order Number: [id number] Reading MD: Jeremy Chase Measurements Intervals [place] Rate: 95 P: OR: QRS: -24 QRSD: 175 T: 27 QT: 486 QTc: 611 Interpretive Statements Atrial fibrillation Ventricular premature complex Left bundle branch block Electronically Signed On 09-09-2019 13:49:23 EDT by Jeremy Chase [facility] Test Date: 2019-09-06 Pat Name: Shannon Olson Department: 1A5W Room: 30 Gender: M 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: YOLANDA : 1955 Requested By: YEMI SOUTH Order Number: [id number] Reading MD: Jeremy Chase Measurements Intervals [place] Rate: 95 P: OR: QRS: -24 QRSD: 175 T: 27 QT: 486 QTc: 611 Interpretive Statements Atrial fibrillation Ventricular premature complex Left bundle branch block Electronically Signed On 09-09-2019 13:49:23 EDT by Jeremy Chase [place], [place] Basic Metabolic Panelon 08-22 Anion gap [Moles/Vol] 6 mmol/L [place], [place] Comment on above: Test Performed by [facility], [address] [place] [address] Calcium [Mass/Vol] 9.0 mg/dL 8.4 - 10. 4 mg/dL [place] Comment on above: Test Performed by [facility], [facility] [place] [address] Chloride [Moles/Vol] 106 mmol/L 98 - 10 7 mmol/L [place] Comment on above: Test Performed by [facility], [facility] [place] [address] CO2 [Moles/Vol] 25 mmol/L 22 - 30 mmol/L [place] Comment on above: Test Performed by [facility], [facility] [place] [address] Creatinine [Mass/Vol] 1.18 mg/dL 0.52 - 1.25 mg/dL [place] Comment on above: Test Performed by [facility], [facility] [place] [address] EGFR IF NonAfrican [place] >60.0 >60 mL/min [place] Comment on above: Test Performed by [facility], [address] [facility] [place] [address] Source- MDRD equation with creatinine calibration to IDMS(NKDEP) eGFR not recommended for drug dose adjustment GFR/1.73 sq M predicted among blacks MDRD (S/P/Bld) [Vol rate/Area] mL/min/{1.73_m2} >60 mL/min [place] Comment on above: Test Performed by [facility], [address] [place] [address] Glucose [Mass/Vol] 100 mg/dL 70 - 100 mg/dL [place], [place] Comment on above: Test Performed by [facility], [facility] [place] [address] Interpretation and review of laboratory results Abnormal [place] Potassium [Moles/Vol] 4.0 mmol/L 3.5 - 5.1 mmol/L [place] Comment on above: Test Performed by [facility], [facility] [place] [address] Sodium [Moles/Vol] 137 mmol/L 135 - 145 mmol/L [place] Urea nitrogen [Mass/Vol] 26 mg/dL High 7 - 20 mg/dL [place], [place] Comment on above: Test Performed by [facility], [facility] [place] [address] Test Performed by [employer] [facility], [facility] [place], [place] [id number] [place] [address] Diagnostic Cardiac Car [employer] Attendant Procedureon 09-08-2019 [facility] CARDIAC CATHETERIZATION Patient: Shannon Olson Procedure Date: [...] artery. The vessel was entered, a .014 [facility] [place] IVUS catheter was advanced into position over [...] signed by George Reed MD 09/08/2019 14:41 [facility], [place] Candace Payne Incoming Cardiology Results From Anthony/Denae - 09/08/2019 2:41 PM EDT [facility] CARDIAC CATHETERIZATION Patient: Shannon [...] artery. 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[facility] : 1955 Requested By: MIGUEL CHANG Order Number: [id number] [place] MD: Peña Waveseis Measurements Intervals [place] Rate: 61 P: 42 OR: 177 QRS: 5 QRSD: 115 T: 27 QT: 455 QTc: 459 Interpretive Statements Sinus rhythm Left ventricular hypertrophy Inferior infarct, old Electronically Signed On 09-08-2019 15:53:33 EDT by [facility], [employer] [facility] Test Date: 2019-09-07 Pat Name: Shannon Olson Department: 1A5 Room: 30 Gender: M 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: [facility] : 1955 Requested By: MIGUEL CHANG Order Number: [id number] Reading MD: Peña Knutson Measurements Intervals [place] Rate: 61 P: 42 OR: 177 QRS: 5 QRSD: 115 T: 27 QT: 455 QTc: 459 Interpretive Statements Sinus rhythm Left ventricular hypertrophy Inferior infarct, old Electronically Signed On 09-08-2019 15:53:33 EDT by [facility] Cardiac Stress Test Goldie gingon 09-08-2019 STRESS ECHOCARDIOGRA M Nino Protocol PATIENT: Shannon Olson STUDY DATE: 09/08/2019 : 1955 AGE: 63 HT/WT: 188 cm (74 119.8 kg (263.5 in) lb) GENDER: M BP: 138 / 80 LOCATION: [facility] PATIENT Observation main STATUS: *ORDERING PHYSICIAN: * Zoie Gonzales MD *SUPERVISING PHYSICIAN: * Tree *RN: * Soco Mora MD *READING PHYSICIAN: Humberto Leavitt *FINISH MENDER: * Coby Douglas RDCS, MD AE, CCT, [facility] INDICATIONS: Chest pain. HISTORY: Dyslipidemia. Chronic obstructive [...] The patient was transferred to the telemetry [place] [employer]. FINDINGS LEFT VENTRICLE: The cavity size is [...] peak heart rate and blood pressure was [address] mm Hg/min. Stress testing did not produce [...] MD 09/08/2019 10:24 Prior Signatures: [facility], [facility] Incoming Cardiology Results From [email or web address] - 09/08/2019 10:24 AM EDT STRESS ECHOCARDIOGRAM Nino Protocol PATIENT: Shannon Olson STUDY DATE: 09/08/2019 : 1955 AGE: 63 HT/WT: 188 cm (74 119.8 kg (263.5 in) lb) GENDER: M BP: 138 / 80 LOCATION: [facility] PATIENT Observation main STATUS: *ORDERING PHYSICIAN: * Zoie Gonzales MD *SUPERVISING PHYSICIAN: Humberto Leavitt *RN: * Soco Mora MD *READING PHYSICIAN: Humberto Leavitt *FINISH MENDER: * Coby Douglas RDCS, MD AE, CCT, [...] [facility] FINDINGS LEFT VENTRICLE: The cavity size [...] peak heart rate and blood pressure was 11356 mm Hg/min. Stress testing did not produce [...] MD 09/08/2019 10:24 Prior Signatures: [facility], [place] Echocardiogram [facility] [place] 09-07-2019 TRANSESOPHAGEAL ECHOCARDIOGRAM PATIENT: Shannon Olson STUDY DATE: 09/07/2019 : 1955 AGE: 63 HT/WT: 188 cm (74 118.8 kg (261.4 in) lb) GENDER: M BP: 134 / 77 LOCATION: [facility] PATIENT Observation main STATUS: *ORDERING PHYSICIAN: * Subhash Arrieta *READING PHYSICIAN: * Miguel Chang MD, *FINISH MENDER: * Nathalia Kramer [facility] INDICATIONS: Atrial Fibrillation. CONCLUSIONS SUMMARY: 1. [...] range. Electronically signed by Miguel Chang MD, [facility] 09/07/2019 14:39 Prior Signatures: [facility] Incoming Cardiology Results From [email or web address] - 09/07/2019 2:39 PM EDT TRANSESOPHAGEAL ECHOCARDIOGRAM PATIENT: Shannon Olson STUDY DATE: 09/07/2019 : 1955 AGE: 63 HT/WT: 188 cm (74 118.8 kg (261.4 in) lb) GENDER: M BP: 134 / 77 LOCATION: [facility] PATIENT Observation main STATUS: *ORDERING PHYSICIAN: * Subhash Arrieta *READING PHYSICIAN: * Miguel Chang MD, *FINISH MENDER: * Nathalia Kramer [facility] INDICATIONS: Atrial Fibrillation. CONCLUSIONS SUMMARY: 1. [...] range. Electronically signed by Miguel Chang MD, [facility] 09/07/2019 14:39 Prior Signatures: [place], [place] Basic Metabolic Panelon 08-22 Anion gap [Moles/Vol] 9 mmol/L [place], [place] Comment on above: Test Performed by [facility], [facility] [place] [address] Calcium [Mass/Vol] 9.0 mg/dL 8.4 - 10. 4 mg/dL [place], [place] Comment on above: Test Performed by [facility], [facility] [place] [address] Chloride [Moles/Vol] 109 mmol/L High 98 - 10 7 mmol/L [place], [place] Comment on above: Test Performed by [facility], [address] [place] [address] CO2 [Moles/Vol] 22 mmol/L 22 - 30 mmol/L [place] Comment on above: Test Performed by [facility], [address] [place] [address] Creatinine [Mass/Vol] 0.84 mg/dL 0.52 - 1.25 mg/dL [place], [place] Comment on above: Test Performed by [facility], [address] [place] [address] EGFR IF NonAfrican [place]er >60.0 >60 mL/min [place], [place] Comment on above: Test Performed by [facility], [address] [place] [address] Source- MDRD equation with creatinine calibration to IDMS(NKDEP) eGFR not recommended for drug dose adjustment GFR/1.73 sq M predicted among blacks MDRD (S/P/Bld) [Vol rate/Area] mL/min/{1.73_m2} >60 mL/min [place] Comment on above: Test Performed by [facility], [address] [place] [address] Glucose [Mass/Vol] 104 mg/dL High 70 - 100 mg/dL [place], [place] Comment on above: Test Performed by [facility], [address] [place] [address] Interpretation and review of laboratory results Abnormal [place] Potassium [Moles/Vol] 3.6 mmol/L 3.5 - 5.1 mmol/L [place] Comment on above: Test Performed by [facility], [facility] [place] [address] Sodium [Moles/Vol] 139 mmol/L 135 - 145 mmol/L [place] Urea nitrogen [Mass/Vol] 20 mg/dL 7 - 20 mg/dL [place] Comment on above: Test Performed by [facility], [facility] [place] [address] EKG 12 Leadon 09-06-2019 [place] Incoming Cardiology Results From [facility] - 09/06/2019 9:05 AM EDT [facility] Test Date: 2019-09-05 Pat Name: Shannon Olson Department: [facility] Room: 1539 Gender: M 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: ROSIO : 1955 Requested By: ARI RUEDA Order Number: [id number] Reading MD: Luisa Blackburn Measurements Intervals [place] Rate: 108 P: OR: QRS: -5 QRSD: 199 T: 12 QT: 445 QTc: 597 Interpretive Statements Atrial fibrillation Left ventricular hypertrophy LBBB Baseline artifact Electronically Signed On 09-06-2019 9:04:11 EDT by [place] EKG 12 Lead - Chest Painon 0 09-06-2019 [place] Incoming Cardiology Results From [facility] - 09/06/2019 9:04 AM EDT [facility] Test Date: 2019-09-05 Pat Name: Shannon Olson Department: [facility] Room: 1539 Gender: M 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: ROSIO : 1955 Requested By: ARI RUEDA Order Number: [id number] Reading MD: Luisa Medinaier Measurements Intervals [place] Rate: 84 P: OR: QRS: 1 QRSD: 114 T: 15 QT: 394 QTc: 466 Interpretive Statements Atrial fibrillation Left ventricular hypertrophy Inferior infarct, old ST elevation, consider anterior injury Electronically Signed On 09-06-2019 9:03:02 EDT by [facility] Test Date: 2019-09-05 Pat Name: Shannon Olson Department: [facility] Room: 1539 Gender: M 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: ROSIO : 1955 Requested By: ARI RUEDA Order Number: [id number] Reading MD: [facility] Measurements Intervals [place] Rate: 84 P: OR: QRS: 1 QRSD: 114 T: 15 QT: 394 QTc: 466 Interpretive Statements Atrial fibrillation Left ventricular hypertrophy Inferior infarct, old ST elevation, consider anterior injury Electronically Signed On 09-06-2019 9:03:02 EDT by [place] Magnesiumon 09-06-2019 Magnesium [Mass/Vol] 2.0 mg/dL 1.6 - 2 .3 mg/dL [place] Otheron 09-06-2019 Test Performed by [address] TSH without Reflexon 020 TSH Qn 1.129 u[IU]/mL 0.465 - 4.68 u[IU]/mL [place] Test Performed by [facility], [address] [place] [address] Troponinon 09-06-2019 Troponin I.cardiac [Mass/Vol] 0.019 ng/mL 0 - 0.034 ng/mL [place] Comment on above: . Test Performed by [facility], [facility] [address] Troponin I.cardiac [Mass/Vol] 0.028 ng/mL 0 - 0.034 ng/mL [place] Comment on above: . Test Performed by [facility], [facility] [address] Basic Metabolic Panelon 08-22 Anion gap [Moles/Vol] 9 mmol/L [place], [place] Comment on above: Test Performed by [facility], [facility] [place] [address] Calcium [Mass/Vol] 9.0 mg/dL 8.4 - 10. 4 mg/dL [place] Comment on above: Test Performed by [facility], [facility] [place] [address] Chloride [Moles/Vol] 107 mmol/L 98 - 10 7 mmol/L [place] Comment on above: Test Performed by [facility], [facility] [place] [address] CO2 [Moles/Vol] 23 mmol/L 22 - 30 mmol/L [place], [place] Comment on above: Test Performed by [facility], [facility] [place] [address] Creatinine [Mass/Vol] 0.96 mg/dL 0.52 - 1.25 mg/dL [place], [place] Comment on above: Test Performed by [facility], [facility] [place] [address] EGFR IF NonAfrican [place]er >60.0 >60 mL/min [place] Comment on above: Test Performed by [facility], [facility] [place] [address] Source- MDRD equation with creatinine calibration to IDMS(NKDEP) eGFR not recommended for drug dose adjustment GFR/1.73 sq M predicted among blacks MDRD (S/P/Bld) [Vol rate/Area] mL/min/{1.73_m2} >60 mL/min [place] Comment on above: Test Performed by [facility], [facility] [place] [address] Glucose [Mass/Vol] 109 mg/dL High 70 - 100 mg/dL [place] Comment on above: Test Performed by [facility], [facility] [place] [address] Interpretation and review of laboratory results Abnormal [place] Potassium [Moles/Vol] 4.0 mmol/L 3.5 - 5.1 mmol/L [place] Comment on above: Test Performed by [facility], [facility] [place] [address] Sodium [Moles/Vol] 139 mmol/L 135 - 145 mmol/L [place] Urea nitrogen [Mass/Vol] 22 mg/dL High 7 - 20 mg/dL [place], [place] Comment on above: Test Performed by [facility], [facility] [place] [address] Brain Natriuretic Peptideon 09-05-2019 Interpretation and review of laboratory results Abnormal [place] Natriuretic peptide B (Bld) [Mass/Vol] 645 pg/mL High 0 - 125 pg/mL [place] CBC Auto Differentialon 08-22 Absolute Baso # 0.0 10*3/uL 0 - 0.2 10*3/uL [place] Comment on above: Test Performed by [facility], [facility] [place] [address] Absolute Neut # 8.0 10*3/uL High 1.8 - 7 10*3/uL [place], [place] Comment on above: Test Performed by [facility], [facility] [place] [address] Basophils/100 WBC (Bld) 0.5 % 0 - 2 % [place] Comment on above: Test Performed by [facility], [facility] [place] [address] Eosinophils (Bld) [#/Vol] 0.0 10*3/uL 0 - 0.5 10*3/uL [place] Comment on above: Test Performed by [facility], [facility] [place] [address] Eosinophils/100 WBC (Bld) 0.2 % Low 1 - 6 % [place] Comment on above: Test Performed by [facility], [facility] [place] [address] Erythrocyte distribution width (RBC) [Ratio] 15.1 % High 11.5 - 14.5 % [place], [place] Comment on above: Test Performed by [facility], [facility] [place] [address] Granulocytes/100 WBC (Bld) 83.5 % High 40 - 80 % [place] Comment on above: Test Performed by [facility], [facility] [place] [address] Hematocrit (Bld) [Volume fraction] 42.0 % 40 - 52 % [place] Comment on above: Test Performed by [facility], [address] [place] [address]24 Hemoglobin (Bld) [Mass/Vol] 14.1 g/dL 13 - 18 g/dL [place], [place] Comment on above: Test Performed by [facility], [address] [place] [address] Interpretation and review of laboratory results Abnormal [place] Lymphocytes (Bld) [#/Vol] 0.9 10*3/uL Low 1 - 4.3 10*3/uL [place] Comment on above: Test Performed by [facility], [address] [place] [address] Lymphocytes/100 WBC (Bld) 9.9 % Low 20 - 40 % [place], [place] Comment on above: Test Performed by [facility], [address] [place] [address] 73042 MCH (RBC) [Entitic mass] 29.1 pg 26 - 34 pg [place], [place] Comment on above: Test Performed by [facility], [address] [place] [address] MCHC (RBC) [Mass/Vol] 33.7 % 32 - 36 % [place], [place] Comment on above: Test Performed by [facility], [address] [place] [address] 17586 MCV (RBC) [Entitic vol] 86.2 fL 80 - 98 fL [place], [place] Comment on above: Test Performed by [facility], [address] [place] [address] 00734 Monocytes (Bld) [#/Vol] 0.6 10*3/uL 0 - 0.8 10*3/uL [place] Comment on above: Test Performed by [facility], [address] [place] [address] 24140 Monocytes/100 WBC (Bld) 5.9 % 2 - 10 % [place] Comment on above: Test Performed by [facility], [address] [place] [address] 68776 Platelet mean volume (Bld) [Entitic vol] 7.8 fL 7.4 - 10.4 fL [place] Comment on above: Test Performed by [facility], [facility] [place] [address] Platelets (Bld) [#/Vol] 255 10*3/uL 140 - 440 10*3/uL [place] Comment on above: Test Performed by [facility], [facility] [place] [address] RBC (Bld) [#/Vol] 4.87 10*6/uL 4.4 - 5.9 10*6/uL [place] Comment on above: Test Performed by [facility], [facility] [place] [address] WBC (Bld) [#/Vol] 9.6 10*3/uL 3.6 - 10.7 10*3/uL [place] Test Performed by [facility], [address] [place] [id number] [place] [address] Magnesiumon 09-05-2019 Magnesium [Mass/Vol] 2.0 mg/dL 1.6 - 2 .3 mg/dL [place] Otheron 09-05-2019 Test Performed by [facility], [address] [place] [id number] [place] [address] Test Performed by [facility], [address] [place] [id number] [place] [address] Phosphoruson 09-05-2019 Phosphate [Mass/Vol] 3.1 mg/dL 2.5 - 4 .5 mg/dL [place] Troponinon 09-05-2019 Troponin I.cardiac [Mass/Vol] 0.025 ng/mL 0 - 0.034 ng/mL [place] Comment on above: . Test Performed by [facility], [address] [place] [id number] [place] [address] Troponin I.cardiac [Mass/Vol] 0.015 ng/mL 0 - 0.034 ng/mL [place] Comment on above: . XR CHEST PORTABLEon 09-05-19 20 [place] Incoming Radiology Results From [facility] - 09/05/2019 10:23 AM EDT Patient Name: SHANNON OLSON ---Diagnostic Radiology--- Exam Date/Time 09/05/2019 10:22:16 EDT Exam CR Chest Portable Ordering Physician MD RUEDA DOUGALAS R. Accession Number [id number] CPT4 Codes 45101 () Reason For Exam chest pain. extensive [...] RISA Transcribed Date and Time: 09/05/2019 10:21 [place] Patient Name: SHANNON OLSON ---Diagnostic Radiology--- Exam Date/Time 09/05/2019 10:22:16 EDT Exam CR Chest Portable Ordering Physician MD RUEDA DOUGALAS R. Accession Number [id number] CPT4 Codes 78784 () Reason For Exam chest pain. extensive [...] RISA Transcribed Date and Time: 09/05/2019 10:21 [place] .Auto Diffon 04-19-2019 Ammonia (P) [Mass/Vol] 0.70 10 3/mcL Normal 0.15-1.00 [facility] ([place]) Comment on above: Performed By: #### C AYAAN ALAS, ANEU #### [address] [address] #### BMP, GFR #### [address] [address] Basophils (Bld) [#/Vol] 0.00 10 3/mcL Normal 0.00-0.19 [facility] ([place]) Comment on above: Performed By: #### C AYAAN ALAS, ANEU #### [place] [address] #### BMP, GFR #### [address] [address] Basophils/100 WBC (Bld) 0.0 % Normal 0.0-2.5 [facility] ([place]) Comment on above: Performed By: #### C AYAAN ALAS, ANEU #### [place] [address] #### BMP, GFR #### [address] [address] Eosinophils (Bld) [#/Vol] 0.00 10 3/mcL Normal 0.00-0.40 [facility] ([place]) Comment on above: Performed By: #### C AYAAN ALAS, ANEU #### [place] [address] #### BMP, GFR #### [address] [address] Eosinophils/100 WBC (Bld) 0.0 % Normal 0.0-7.0 [facility] ([place]) Comment on above: Performed By: #### C JETT ALASIFF, ANEU #### [place] [address] #### BMP, GFR #### [address] [address] Lymphocytes (Bld) [#/Vol] 0.40 10 3/mcL Low 0.77-3.85 [facility] ([place]) Comment on above: Performed By: #### C BC, ADIFF, ANEU #### [address] [address] #### BMP, GFR #### [address] [address] Lymphocytes/100 WBC (Bld) 2.6 % Low 10.0-50.0 [facility] ([place]) Comment on above: Performed By: #### C BC, ADIFF, ANEU #### [address] [address] #### BMP, GFR #### [address] [address] Monocytes/100 WBC (Bld) 4.6 % Normal 1.7-13.0 [facility] ([place]) Comment on above: Performed By: #### C BC, ADIFF, ANEU #### [address] [address] #### BMP, GFR #### [address] [address] Neutrophils/100 WBC (Bld) 92.8 % High 37.0-80.0 [facility] ([place]) Comment on above: Performed By: #### C BC, ADIFF, ANEU #### [address] [address] #### BMP, GFR #### [address] [address] .GFRon 04-19-2019 GFR 75 ml/min/1.73sqm Normal [facility] ([place]) Comment on above: Result Comment: GFR Population [...] mL/min/1.73 square meters Performed By: #### C BC ADIFF, ANEU #### [address] [address] #### BMP, GFR #### [address] [address] GFR Non- 62 ml/min/1.73sqm Normal [facility] ([place]) Comment on above: Result Comment: GFR Population [...] mL/min/1.73 square meters Performed By: #### C BCJETTIFF, ANEU #### [address] [address] #### BMP, GFR #### [address] [address] .NEUABSon 04-19-2019 Neutrophils (Bld) [#/Vol] 14.80 10 3/mcL High 2.85-6.16 [facility] ([place]) Comment on above: Performed By: #### C BC ADIFF, ANEU #### [address] [address] #### BMP, GFR #### [address] [address] BMPon 04-19-2019 Calcium [Mass/Vol] 8.5 mg/dL Normal 8.4-10.2 [facility] ([place]) Comment on above: Performed By: #### C BC, ADIFF, ANEU #### [address] [address] #### BMP, GFR #### [address] [address] Chloride [Moles/Vol] 106 mmol/L Normal 98-107 [facility] ([place]) Comment on above: Performed By: #### C BC, ADIFF, ANEU #### [address] [address] #### BMP, GFR #### [address] [address] CO2 [Moles/Vol] 27 mmol/L Normal 23-31 [facility] ([place]) Comment on above: Performed By: #### C BC, ADIFF, ANEU #### [address] [address] #### BMP, GFR #### [address] [address] Creatinine [Mass/Vol] 1.19 mg/dL Normal 0.70-1.30 [facility] ([place]) Comment on above: Performed By: #### C BC, ADIFF, ANEU #### [address] [address] #### BMP, GFR #### [address] [address] Electrolyte Balance 9.0 mEq/L Normal [facility] ([place]) Comment on above: Performed By: #### C BC, ADIFF, ANEU #### [address] [address] #### BMP, GFR #### [address] [address] Glucose [Mass/Vol] 148 mg/dL High 80-115 [facility] ([place]) Comment on above: Performed By: #### C BC, ADIFF, ANEU #### [address] [address] #### BMP, GFR #### [address] [address] Potassium [Moles/Vol] 4.2 mmol/L Normal 3.5-5.1 [facility] ([place]) Comment on above: Performed By: #### C BCJETTIFF, ANEU #### [address] [address] #### BMP, GFR #### [address] [address] Sodium [Moles/Vol] 142 mmol/L Normal 136-145 [facility] ([place]) Comment on above: Performed By: #### C BC, ADIFF, ANEU #### [address] [address] #### BMP, GFR #### [address] [address] Urea nitrogen [Mass/Vol] 20 mg/dL High 7- [facility] ([place]) Comment on above: Performed By: #### C BCAYAAN, ANEU #### [place] [address] #### BMP, GFR #### [address] [address] Urea nitrogen/Creatinine [Mass ratio] 17 ratio Normal 12-17 [facility] ([place]) Comment on above: Performed By: #### C BCJETTIFF, ANEU #### [address] [address] #### BMP, GFR #### [address] [address] CBCon 04-19-2019 Erythrocyte distribution width (RBC) [Ratio] 14.0 % Normal 11.5-14.5 [facility] ([place]) Comment on above: Performed By: #### C BC, ADIFF, ANEU #### [address] [address] #### BMP, GFR #### [address] [address] Hematocrit (Bld) [Volume fraction] 33.0 % Low 42.0-52.0 [facility] ([place]) Comment on above: Performed By: #### C BC, ADIFF, ANEU #### [address] [address] #### BMP, GFR #### [place] [address] Hemoglobin (Bld) [Mass/Vol] 11.1 G/dL Low 14.0-18.0 [facility] ([place]) Comment on above: Performed By: #### C BC, ADIFF, ANEU #### [place] [address] #### BMP, GFR #### [address] [address] MCH (RBC) [Entitic mass] 30.1 pg Normal 27.0-31.2 [facility] ([place]) Comment on above: Performed By: #### C BISHOP ADIFF, ANEU #### [place] [address] #### BMP, GFR #### [place] [address] MCHC (RBC) [Mass/Vol] 33.6 G/dL Normal 31.8-35.4 [facility] ([place]) Comment on above: Performed By: #### C AYAAN ALAS, ANEU #### [place] [address] #### BMP, GFR #### [place] [address] MCV (RBC) [Entitic vol] 89.6 fL Normal 80.0-94.0 [facility] ([place]) Comment on above: Performed By: #### C BISHOP, ADIFF, ANEU #### [place] [address] #### BMP, GFR #### [place] [address] Platelet mean volume (Bld) [Entitic vol] 7.9 fL Normal 7.4-10.4 [facility] ([place]) Comment on above: Performed By: #### C BISHOP, ADIFF, ANEU #### [place] [id number] #### BMP, GFR #### [facility] [address] [place] [address] Platelets (Bld) [#/Vol] 216 10 3/mcL Normal 130-400 [facility] ([place]) Comment on above: Performed By: #### C BC, ADIFF, ANEU #### [address] [address] #### BMP, GFR #### [place] [id number] RBC (Bld) [#/Vol] 3.68 10 6/mcL Low 4.04-6.13 [facility] ([place]) Comment on above: Performed By: #### C BC, ADIFF, ANEU #### [place] [address] #### BMP, GFR #### [address] [address] WBC (Bld) [#/Vol] 15.90 10 3/mcL High 4.60-10.80 [facility] ([place]) Comment on above: Performed By: #### C BC, ADIFF, ANEU #### [place] [address] #### BMP, GFR #### [place] [address] XR KNEE 1 OR 2 VIEWS RIGHTon [...] Date: 04/19/2019 2:48:55 AM Ordering Provider:Terry Figueroa [facility] ([place]) CT KNEE W/O CONTRAST RIGHTon 04-04-2019 CT [...] Date: 04/03/2019 10:42:25 PM Ordering Provider:Terry Hayes [facility] ([place]) .Auto Diffon 04-03-2019 Ammonia (P) [Mass/Vol] 0.50 10 3/mcL Normal 0.15-1.00 [facility] ([place]) Comment on above: Performed By: #### C BC, ADIFF, ANEU #### [place] [address] #### BMP, GFR #### [address] [address] Basophils (Bld) [#/Vol] 0.00 10 3/mcL Normal 0.00-0.19 [facility] ([place]) Comment on above: Performed By: #### C BC, ADIFF, ANEU #### [address] [address] #### BMP, GFR #### [address] [address] Basophils/100 WBC (Bld) 0.5 % Normal 0.0-2.5 [facility] ([place]) Comment on above: Performed By: #### C BC, ADIFF, ANEU #### [address] [address] #### BMP, GFR #### [address] [address] Eosinophils (Bld) [#/Vol] 0.10 10 3/mcL Normal 0.00-0.40 [facility] ([place]) Comment on above: Performed By: #### C BC, ADIFF, ANEU #### [address] [address] #### BMP, GFR #### [address] [address] Eosinophils/100 WBC (Bld) 1.1 % Normal 0.0-7.0 [facility] ([place]) Comment on above: Performed By: #### C BC, ADIFF, ANEU #### [address] [address] #### BMP, GFR #### [address] [address] Lymphocytes (Bld) [#/Vol] 1.30 10 3/mcL Normal 0.77-3.85 [facility] ([place]) Comment on above: Performed By: #### C BC, ADIFF, ANEU #### [address] [address] #### BMP, GFR #### [address] [address] Lymphocytes/100 WBC (Bld) 14.2 % Normal 10.0-50.0 [facility] ([place]) Comment on above: Performed By: #### C BC, ADIFF, ANEU #### [address] [address] #### BMP, GFR #### [facility] [address] [place] [address] Monocytes/100 WBC (Bld) 5.5 % Normal 1.7-13.0 [facility] ([place]) Comment on above: Performed By: #### C BC, ADIFF, ANEU #### [address] [address] #### BMP, GFR #### [facility] [address] [place] [address] Neutrophils/100 WBC (Bld) 78.7 % Normal 37.0-80.0 [facility] ([place]) Comment on above: Performed By: #### C BC, ADIFF, ANEU #### [address] [address] #### BMP, GFR #### [address] [address] .GFRon 04-03-2019 GFR 80 ml/min/1.73sqm Normal [facility] ([place]) Comment on above: Result Comment: GFR Population [...] By: #### C BC, ADIFF, ANEU #### [address] [address] #### BMP, GFR #### [address] [address] GFR Non- 66 ml/min/1.73sqm Normal [facility] ([place]) Comment on above: Result Comment: GFR Population [...] C AYAAN ALAS, ANEU #### [place] [address] #### BMP, GFR #### [place] [address] .NEUABSon 04-03-2019 Neutrophils (Bld) [#/Vol] 7.10 10 3/mcL High 2.85-6.16 [facility] ([place]) Comment on above: Performed By: #### C AYAAN ALAS, ANEU #### [address] [address] #### BMP, GFR #### [place] [address] BMPon 04-03-2019 Calcium [Mass/Vol] 8.5 mg/dL Normal 8.4-10.2 [facility] ([place]) Comment on above: Performed By: #### C BCAYAAN, ANEU #### [place] [address] #### BMP, GFR #### [place] [address] Chloride [Moles/Vol] 105 mmol/L Normal 98-107 [facility] ([place]) Comment on above: Performed By: #### C BCAYAAN, ANEU #### [address] [address] #### BMP, GFR #### [address] [address] CO2 [Moles/Vol] 28 mmol/L Normal 23-31 [facility] ([place]) Comment on above: Performed By: #### C BC, ADIFF, ANEU #### [address] [address] #### BMP, GFR #### [address] [address] Creatinine [Mass/Vol] 1.12 mg/dL Normal 0.70-1.30 [facility] ([place]) Comment on above: Performed By: #### C BC, ADIFF, ANEU #### [address] [address] #### BMP, GFR #### [address] [address] Electrolyte Balance 11.0 mEq/L Normal [facility] ([place]) Comment on above: Performed By: #### C BC, ADIFF, ANEU #### [address] [address] #### BMP, GFR #### [address] [address] Glucose [Mass/Vol] 108 mg/dL Normal 80-115 [facility] [facility] ([place]) Comment on above: Performed By: #### C BC, ADIFF, ANEU #### [address] [address] #### BMP, GFR #### [address] [address] Potassium [Moles/Vol] 4.0 mmol/L Normal 3.5-5.1 [facility]ly [facility] ([place]) Comment on above: Performed By: #### C BC, ADIFF, ANEU #### [address] [address] #### BMP, GFR #### [address] [address] Sodium [Moles/Vol] 144 mmol/L Normal 136-145 [facility]ly [facility], [facility] ([place]) Comment on above: Performed By: #### C BC, ADIFF, ANEU #### [address] [address] #### BMP, GFR #### [address] [address] Urea nitrogen [Mass/Vol] 21 mg/dL High 7 [facility] ([place]) Comment on above: Performed By: #### C BC, ADIFF, ANEU #### [address] [address] #### BMP, GFR #### [address] [address] Urea nitrogen/Creatinine [Mass ratio] 19 ratio Normal 12-17 [facility] ([place]) Comment on above: Performed By: #### C BC, ADIFF, ANEU #### [address] [address] #### BMP, GFR #### [address] [address] CBCon 04-03-2019 Erythrocyte distribution width (RBC) [Ratio] 13.9 % Normal 11.5-14.5 [facility] ([place]) Comment on above: Performed By: #### C BC, JTETIFF, ANEU #### [address] [address] #### BMP, GFR #### [address] [address] Hematocrit (Bld) [Volume fraction] 38.6 % Low 42.0-52.0 [facility] ([place]) Comment on above: Performed By: #### C BC, ADIFF, ANEU #### [address] [address] #### BMP, GFR #### [address] [address] Hemoglobin (Bld) [Mass/Vol] 12.8 G/dL Low 14.0-18.0 [facility] ([place]) Comment on above: Performed By: #### C BC, ADIFF, ANEU #### [address] [address] #### BMP, GFR #### [address] [address] MCH (RBC) [Entitic mass] 29.5 pg Normal 27.0-31.2 [facility] ([place]) Comment on above: Performed By: #### C BC, ADIFF, ANEU #### [address] [address] #### BMP, GFR #### [address] [address] MCHC (RBC) [Mass/Vol] 33.3 G/dL Normal 31.8-35.4 [facility] ([place]) Comment on above: Performed By: #### C BC, ADIFF, ANEU #### [place] [id number] #### BMP, GFR #### [address] [address] MCV (RBC) [Entitic vol] 88.5 fL Normal 80.0-94.0 [facility] ([place]) Comment on above: Performed By: #### C BISHOP, ADIFF, ANEU #### [address] [address] #### BMP, GFR #### [address] [address] Platelet mean volume (Bld) [Entitic vol] 8.0 fL Normal 7.4-10.4 [facility] ([place]) Comment on above: Performed By: #### C BC, ADIFF, ANEU #### [address] [address] #### BMP, GFR #### [address] [address] Platelets (Bld) [#/Vol] 251 10 3/mcL Normal 130-400 [facility] ([place]) Comment on above: Performed By: #### C BC, ADIFF, ANEU #### [place] [id number] #### BMP, GFR #### [facility] [address] [place] [id number] RBC (Bld) [#/Vol] 4.36 10 6/mcL Normal 4.04-6.13 [facility] ([place]) Comment on above: Performed By: #### C BC, ADIFF, ANEU #### [address] [address] #### BMP, GFR #### [address] [address] WBC (Bld) [#/Vol] 9.10 10 3/mcL Normal 4.60-10.80 [facility] ([place]) Comment on above: Performed By: #### C BC, ADIFF, ANEU #### [address] [address] #### BMP, GFR #### [address] [address] Vital Signs Date Time Vital Sign Value Performing Clinician Faci lity 02-07-2025 15:18-0400 Body height 189.2 cm Dominguez Ortega MD Work Phone: [facility] 02-07-2025 15:18-0400 Body mass index (BMI) [Ratio] 37.24 kg/m2 Dominguez Ortega MD Work Phone: [facility] 02-07-2025 15:18-0400 Body weight 133.36 kg Dominguez Ortega MD Work Phone: [facility] Comment on above: verbal 02-07-2025 15:18-0400 Diastolic blood pressure 88 mm[Hg] Dominguez Ortega MD Work Phone: [facility] 02-07-2025 15:18-0400 Heart rate 63 /min Dominguez Ortega MD Work Phone: [facility] 02-07-2025 15:18-0400 Systolic blood pressure 136 mm[Hg] Dominguez Ortega MD Work Phone: [facility] 02-07-2025 14:30-0400 Body height 188 cm [place] [employer]ING INVESTIGATOR - CONTROL SYSTEM MANAGER Work Phone: [facility] 02-07-2025 14:30-0400 Body mass index (BMI) [Ratio] 37.75 kg/m2 [place] [employer] AND HOUSING INVESTIGATOR - CONTROL SYSTEM MANAGER Work Phone: [facility] 02-07-2025 14:30-0400 Body weight 133.36 kg [place] Dora [employer]ENT AND HOUSING INVESTIGATOR - CONTROL SYSTEM MANAGER Work Phone: [facility] 11-15-2024 03:06-0400 Body temperature 98.2 [degF] Dr. Finn Ferrell MD Work Phone: [facility] 11-15-2024 03:06-0400 Diastolic blood pressure 71 mm[Hg] Dr. Finn Ferrell MD Work Phone: [facility] 11-15-2024 03:06-0400 Heart rate 53 /min Dr. Finn Ferrell MD Work Phone: [facility] 11-15-2024 03:06-0400 Respiratory rate 16 /min Dr. Finn Ferrell MD Work Phone: [facility] 11-15-2024 03:06-0400 SaO2% (BldA) [Mass fraction] 95 % Dr. Finn Ferrell MD Work Phone: [facility] 11-15-2024 03:06-0400 Systolic blood pressure 116 mm[Hg] Dr. Finn Ferrell MD Work Phone: [facility] 11-14-2024 23:36-0400 Body mass index (BMI) [Ratio] 39.3 kg/m2 Dr. Finn Ferrell MD Work Phone: [facility] 11-14-2024 23:36-0400 Body weight 138.[address] Finn Ferrell MD Work Phone: [facility] 11-14-2024 23:14-0400 Body height 187.[address] Finn Ferrell MD Work Phone: [facility] 09-28-2024 11:23-0400 Body height 188 cm [place] [employer] H[employer]ING INVESTIGATOR - CONTROL SYSTEM MANAGER Work Phone: [facility] 09-28-2024 11:23-0400 Body mass index (BMI) [Ratio] 38.88 kg/m2 [place] [employer] AND HOUSING INVESTIGATOR - CONTROL SYSTEM MANAGER Work Phone: [facility] 09-28-2024 11:23-0400 Body weight 137.35 kg [place] [employer] AND HOUSING INVESTIGATOR - CONTROL SYSTEM MANAGER Work Phone: [facility] 09-28-2024 11:23-0400 Diastolic blood pressure 82 mm[Hg] [place] [employer] AND HOUSING INVESTIGATOR - CONTROL SYSTEM MANAGER Work Phone: [facility] 09-28-2024 11:23-0400 Heart rate 60 /min [place] [employer] H[employer]ING INVESTIGATOR - CONTROL SYSTEM MANAGER Work Phone: [facility] 09-28-2024 11:23-0400 SaO2% (BldA) [Mass fraction] 96 % [place] [employer] HOUSING INVESTIGATOR - CONTROL SYSTEM MANAGER Work Phone: [facility] 09-28-2024 11:23-0400 Systolic blood pressure 126 mm[Hg] [place] [employer] AND HOUSING INVESTIGATOR - CONTROL SYSTEM MANAGER Work Phone: [facility] 09-15-2024 07:50-0400 Body temperature 97.7 [degF] Dominguez Ortega MD Work Phone: [facility] 09-15-2024 07:50-0400 Diastolic blood pressure 67 mm[Hg] Dominguez Ortega MD Work Phone: [facility] 09-15-2024 07:50-0400 Heart rate 63 /min Dominguez Ortega MD Work Phone: [facility] 09-15-2024 07:50-0400 Respiratory rate 16 /min Dominguez Ortega MD Work Phone: [facility] 09-15-2024 07:50-0400 SaO2% (BldA) [Mass fraction] 97 % Dominguez Ortega MD Work Phone: [facility] 09-15-2024 07:50-0400 Systolic blood pressure 142 mm[Hg] Dominguez Ortega MD Work Phone: [facility] 09-15-2024 05:00-0400 Body mass index (BMI) [Ratio] 39.62 kg/m2 Dominguez Ortega MD Work Phone: [facility] 09-15-2024 05:00-0400 Body weight 139.98 kg Dominguez Ortega MD Work Phone: [facility] 09-14-2024 09:28-0400 Body height 188 cm Dominguez Ortega MD Work Phone: [facility] 08-24-2024 14:56-0400 Body height 188 cm [place] [employer] AND HOUSING INVESTIGATOR - CONTROL SYSTEM MANAGER Work Phone: [facility] 08-24-2024 14:56-0400 Body mass index (BMI) [Ratio] 39.03 kg/m2 [place] [employer] HOUSING INVESTIGATOR - CONTROL SYSTEM MANAGER Work Phone: [facility] 08-24-2024 14:56-0400 Body weight 137.89 kg [place] [employer] AND HOUSING INVESTIGATOR - CONTROL SYSTEM MANAGER Work Phone: [facility] 08-24-2024 14:56-0400 Diastolic blood pressure 70 mm[Hg] [place] [employer] AND HOUSING INVESTIGATOR - CONTROL SYSTEM MANAGER Work Phone: [facility] 08-24-2024 14:56-0400 Heart rate 68 /min [place] [employer] AND HOUSING INVESTIGATOR - CONTROL SYSTEM MANAGER Work Phone: [facility] 08-24-2024 14:56-0400 Systolic blood pressure 126 mm[Hg] [place] [employer] AND HOUSING INVESTIGATOR - CONTROL SYSTEM MANAGER Work Phone: [facility] 07-20-2024 13:30-0500 Body height 188 cm [place] [employer] AND HOUSING INVESTIGATOR - CONTROL SYSTEM MANAGER Work Phone: [facility] 07-20-2024 13:30-0500 Body mass index (BMI) [Ratio] 39.21 kg/m2 [place]eve[place] Valentinle RENT AND HOUSING INVESTIGATOR - CONTROL SYSTEM MANAGER Work Phone: [facility] 07-20-2024 13:30-0500 Body weight 138.53 kg [place] [employer] AND HOUSING INVESTIGATOR - CONTROL SYSTEM MANAGER Work Phone: [facility] 07-20-2024 13:30-0500 Diastolic blood pressure 60 mm[Hg] [place] [employer] AND HOUSING INVESTIGATOR - CONTROL SYSTEM MANAGER Work Phone: [facility] 07-20-2024 13:30-0500 Heart rate 66 /min [place] [employer] AND HOUSING INVESTIGATOR - CONTROL SYSTEM MANAGER Work Phone: [facility] 07-20-2024 13:30-0500 SaO2% (BldA) [Mass fraction] 95 % [place] [employer] AND HOUSING INVESTIGATOR - CONTROL SYSTEM MANAGER Work Phone: [facility] 07-20-2024 13:30-0500 Systolic blood pressure 130 mm[Hg] [place] [employer] AND HOUSING INVESTIGATOR - CONTROL SYSTEM MANAGER Work Phone: [facility] 07-06-2024 14:06-0500 Body height 188 cm [place] [employer] AND HOUSING INVESTIGATOR - CONTROL SYSTEM MANAGER Work Phone: [facility] 07-06-2024 14:06-0500 Body mass index (BMI) [Ratio] 39.93 kg/m2 [place] [employer] AND HOUSING INVESTIGATOR - CONTROL SYSTEM MANAGER Work Phone: [facility] 07-06-2024 14:06-0500 Body weight 141.07 kg [place] [employer] AND HOUSING INVESTIGATOR - CONTROL SYSTEM MANAGER Work Phone: [facility] 07-06-2024 14:06-0500 Diastolic blood pressure 82 mm[Hg] [place] [employer] AND HOUSING INVESTIGATOR - CONTROL SYSTEM MANAGER Work Phone: [facility] 07-06-2024 14:06-0500 Heart rate 68 /min [place] [employer] AND HOUSING INVESTIGATOR - CONTROL SYSTEM MANAGER Work Phone: [facility] 07-06-2024 14:06-0500 Systolic blood pressure 138 mm[Hg] [place] [employer] AND HOUSING INVESTIGATOR - CONTROL SYSTEM MANAGER Work Phone: [facility] 02-01-2024 14:47-0400 Diastolic blood pressure 80 mm[Hg] Dominguez Ortega MD Work Phone: [facility] 02-01-2024 14:47-0400 Systolic blood pressure 142 mm[Hg] Dominguez Ortega MD Work Phone: [facility] 02-01-2024 14:15-0400 Body height 188 cm Dominguez Ortega MD Work Phone: [facility] 02-01-2024 14:15-0400 Body mass index (BMI) [Ratio] 39.54 kg/m2 Dominguez Ortega MD Work Phone: [facility] 02-01-2024 14:15-0400 Body weight 139.71 kg Dominguez Ortega MD Work Phone: [facility] 02-01-2024 14:15-0400 Heart rate 62 /min Dominguez Ortega MD Work Phone: [facility] 02-01-2024 14:15-0400 SaO2% (BldA) [Mass fraction] 99 % Dominguez Ortega MD Work Phone: [facility] 07-29-2023 10:33-0500 Body height 189.2 cm [place] [employer] AND HOUSING INVESTIGATOR - CONTROL SYSTEM MANAGER Work Phone: [facility] 07-29-2023 10:33-0500 Body mass index (BMI) [Ratio] 38.51 kg/m2 [place] [employer] AND HOUSING INVESTIGATOR - CONTROL SYSTEM MANAGER Work Phone: [facility] 07-29-2023 10:33-0500 Body weight 137.89 kg [place] [employer] AND HOUSING INVESTIGATOR - CONTROL SYSTEM MANAGER Work Phone: [facility] 07-29-2023 10:33-0500 Diastolic blood pressure 78 mm[Hg] [place] [employer] AND HOUSING INVESTIGATOR - CONTROL SYSTEM MANAGER Work Phone: [facility] 07-29-2023 10:33-0500 Heart rate 60 /min [place] [employer] AND HOUSING INVESTIGATOR - CONTROL SYSTEM MANAGER Work Phone: [facility] 07-29-2023 10:33-0500 SaO2% (BldA) [Mass fraction] 96 % [place] [employer] AND HOUSING INVESTIGATOR - CONTROL SYSTEM MANAGER Work Phone: [facility] 07-29-2023 10:33-0500 Systolic blood pressure 126 mm[Hg] Francededra [place] RENT AND HOUSING INVESTIGATOR - CONTROL SYSTEM MANAGER Work Phone: [facility] 07-09-2023 07:34-0500 Diastolic blood pressure 76 mm[Hg] Dr. Finn Ferrell Work Phone: [facility] 07-09-2023 07:34-0500 Systolic blood pressure 137 mm[Hg] Dr. Finn Ferrell Work Phone: [facility] 07-09-2023 07:32-0500 Body temperature 97.3 [degF] Dr. Finn Ferrell Work Phone: [facility] 07-09-2023 07:32-0500 Heart rate 62 /min Dr. Finn Ferrell Work Phone: [facility] 07-09-2023 07:32-0500 Respiratory rate 16 /min Dr. Finn Ferrell Work Phone: [facility] 07-09-2023 07:32-0500 SaO2% (BldA) [Mass fraction] 97 % Dr. Finn Ferrell Work Phone: [facility] 07-05-2023 14:21-0500 Diastolic blood pressure 67 mm[Hg] Dr. Finn Ferrell Work Phone: [facility] 07-05-2023 14:21-0500 Heart rate 78 /min Dr. Finn Ferrell Work Phone: [facility] 07-05-2023 14:21-0500 Respiratory rate 16 /min Dr. Finn Ferrell Work Phone: [facility] 07-05-2023 14:21-0500 SaO2% (BldA) [Mass fraction] 98 % Dr. Finn Ferrell Work Phone: [facility] 07-05-2023 14:21-0500 Systolic blood pressure 136 mm[Hg] Dr. Finn Ferrell Work Phone: [facility] 07-05-2023 11:45-0500 Body height 187.[address] Finn Ferrell Work Phone: [facility] 07-05-2023 11:45-0500 Body mass index (BMI) [Ratio] 40.2 kg/m2 Dr. Finn Ferrell Work Phone: [facility] 07-05-2023 11:45-0500 Body temperature 97.2 [degF] Dr. Finn Ferrell Work Phone: [facility] 07-05-2023 11:45-0500 Body weight 142.[address] Finn Ferrell Work Phone: [facility] 06-17-2023 11:55-0500 Diastolic blood pressure 70 mm[Hg] [place] [employer] AND HOUSING INVESTIGATOR - CONTROL SYSTEM MANAGER Work Phone: [facility] 06-17-2023 11:55-0500 Systolic blood pressure 110 mm[Hg] [place] Valentinle RENT AND HOUSING INVESTIGATOR - CONTROL SYSTEM MANAGER Work Phone: [facility] 06-17-2023 10:02-0500 Body height 189.2 cm [place] Valentinle RENT AND HOUSING INVESTIGATOR - CONTROL SYSTEM MANAGER Work Phone: [facility] 06-17-2023 10:02-0500 Body mass index (BMI) [Ratio] 38.86 kg/m2 [place] [employer] HOUSING INVESTIGATOR - CONTROL SYSTEM MANAGER Work Phone: [facility] 06-17-2023 10:02-0500 Body weight 139.16 kg [place] Valentinle RENT AND HOUSING INVESTIGATOR - CONTROL SYSTEM MANAGER Work Phone: [facility] 06-17-2023 10:02-0500 Heart rate 66 /min [place] [employer] AND HOUSING INVESTIGATOR - CONTROL SYSTEM MANAGER Work Phone: [facility] 06-17-2023 10:02-0500 SaO2% (BldA) [Mass fraction] 94 % [place] Dora Johnson CNP Work Phone: [facility] 05-20-2023 11:26-0500 Body temperature 99.2 [degF] Dr. Finn Ferrell Work Phone: [facility] 05-20-2023 11:26-0500 Diastolic blood pressure 86 mm[Hg] Dr. Finn Ferrell Work Phone: [facility] 05-20-2023 11:26-0500 Heart rate 57 /min Dr. Finn Ferrell Work Phone: [facility] 05-20-2023 11:26-0500 Respiratory rate 18 /min Dr. Finn Ferrell Work Phone: [facility] 05-20-2023 11:26-0500 SaO2% (BldA) [Mass fraction] 97 % Dr. Finn Ferrell Work Phone: [facility] 05-20-2023 11:26-0500 Systolic blood pressure 136 mm[Hg] Dr. Finn Ferrell Work Phone: [facility] 05-20-2023 10:00-0500 Body height 187.[address] Finn Ferrell Work Phone: [facility] 05-20-2023 10:00-0500 Body mass index (BMI) [Ratio] 40.1 kg/m2 Dr. Finn Ferrell Work Phone: [facility] 05-20-2023 10:00-0500 Body weight [address] Finn Ferrell Work Phone: [facility] 05-10-2023 10:12-0500 Body height 189.2 cm Tree Gonzales MD Work Phone: [facility] 05-10-2023 10:12-0500 Body mass index (BMI) [Ratio] 38.88 kg/m2 Tree Gonzales MD Work Phone: [facility] 05-10-2023 10:12-0500 Body weight 139.16 kg Tree Gonzales MD Work Phone: [facility] 05-10-2023 10:12-0500 Diastolic blood pressure 86 mm[Hg] Tree Gonzales MD Work Phone: [facility] 05-10-2023 10:12-0500 Heart rate 52 /min Tree Gonzales MD Work Phone: [facility] 05-10-2023 10:12-0500 Respiratory rate 18 /min Tree Gonzales MD Work Phone: [facility] 05-10-2023 10:12-0500 SaO2% (BldA) [Mass fraction] 92 % Tree Gonzales MD Work Phone: [facility] Comment on above: 05-10-2023 10:12-0500 Systolic blood pressure 140 mm[Hg] Tree Gonzales MD Work Phone: [facility] 04-08-2023 09:51-0500 Body height 189.2 cm [place] [employer] H[employer]ING INVESTIGATOR - CONTROL SYSTEM MANAGER Work Phone: [facility] 04-08-2023 09:51-0500 Body mass index (BMI) [Ratio] 38.86 kg/m2 [place] [employer] H[employer]ING INVESTIGATOR - CONTROL SYSTEM MANAGER Work Phone: [facility] 04-08-2023 09:51-0500 Body weight 139.16 kg [place] [employer] AND HOUSING INVESTIGATOR - CONTROL SYSTEM MANAGER Work Phone: [facility] 04-08-2023 09:51-0500 Diastolic blood pressure 78 mm[Hg] [place] [employer] AND HOUSING INVESTIGATOR - CONTROL SYSTEM MANAGER Work Phone: [facility] 04-08-2023 09:51-0500 Heart rate 68 /min [place] [employer] H[employer]ING INVESTIGATOR - CONTROL SYSTEM MANAGER Work Phone: [facility] 04-08-2023 09:51-0500 SaO2% (BldA) [Mass fraction] 97 % [place] [employer] H[employer]ING INVESTIGATOR - CONTROL SYSTEM MANAGER Work Phone: [facility] 04-08-2023 09:51-0500 Systolic blood pressure 124 mm[Hg] [place] DANIELLE Johnson CNP Work Phone: [facility] 04-07-2023 09:19-0500 Body mass index (BMI) [Ratio] 39.2 kg/m2 Dr. Finn Ferrell Work Phone: [facility] 04-07-2023 09:19-0500 Body weight 138.[address] Finn Ferrell Work Phone: [facility] 04-07-2023 09:19-0500 Diastolic blood pressure 75 mm[Hg] Dr. Finn Ferrell Work Phone: [facility] 04-07-2023 09:19-0500 Heart rate 71 /min Dr. Finn Ferrell Work Phone: [facility] 04-07-2023 09:19-0500 Respiratory rate 17 /min Dr. Finn Ferrell Work Phone: [facility] 04-07-2023 09:19-0500 SaO2% (BldA) [Mass fraction] 95 % Dr. Finn Ferrell Work Phone: [facility] 04-07-2023 09:19-0500 Systolic blood pressure 133 mm[Hg] Dr. Finn Ferrell Work Phone: [facility] 03-29-2023 13:10-0500 Body height 189.2 cm Chris Boyce MD Work Phone: [facility] 03-29-2023 13:10-0500 Body mass index (BMI) [Ratio] 39.32 kg/m2 Chris Boyce MD Work Phone: [facility] 03-29-2023 13:10-0500 Body weight 140.8 kg Chris Boyce MD Work Phone: [facility] 03-29-2023 13:10-0500 Diastolic blood pressure 74 mm[Hg] Chris Boyce MD Work Phone: [facility] 03-29-2023 13:10-0500 Heart rate 63 /min Chris Boyce MD Work Phone: [facility] 03-29-2023 13:10-0500 Respiratory rate 18 /min Chris Boyce MD Work Phone: [facility] 03-29-2023 13:10-0500 SaO2% (BldA) [Mass fraction] 95 % Chris Boyce MD Work Phone: [facility] Comment on above: 03-29-2023 13:10-0500 Systolic blood pressure 126 mm[Hg] Chris Boyce MD Work Phone: [facility] 03-18-2023 10:41-0400 Body height 189.2 cm [place] [employer]ING INVESTIGATOR - CONTROL SYSTEM MANAGER Work Phone: [facility] 03-18-2023 10:41-0400 Body mass index (BMI) [Ratio] 38.91 kg/m2 [place] [employer] H[employer]ING INVESTIGATOR - CONTROL SYSTEM MANAGER Work Phone: [facility] 03-18-2023 10:41-0400 Body weight 139.34 kg [place] [employer] HOUSING INVESTIGATOR - CONTROL SYSTEM MANAGER Work Phone: [facility] 03-18-2023 10:41-0400 Diastolic blood pressure 74 mm[Hg] [place] [employer] HOUSING INVESTIGATOR - CONTROL SYSTEM MANAGER Work Phone: [facility] 03-18-2023 10:41-0400 Heart rate 64 /min [place] [employer] HOUSING INVESTIGATOR - CONTROL SYSTEM MANAGER Work Phone: [facility] 03-18-2023 10:41-0400 SaO2% (BldA) [Mass fraction] 97 % [place] [employer] HOUSING INVESTIGATOR - CONTROL SYSTEM MANAGER Work Phone: [facility] 03-18-2023 10:41-0400 Systolic blood pressure 122 mm[Hg] [place] [employer] AND HOUSING INVESTIGATOR - CONTROL SYSTEM MANAGER Work Phone: [facility] 03-01-2023 11:15-0400 Diastolic blood pressure 73 mm[Hg] Zoie Gonzales MD Work Phone: [facility] 03-01-2023 11:15-0400 Heart rate 63 /min Zoie Gonzales MD Work Phone: [facility] 03-01-2023 11:15-0400 Respiratory rate 14 /min Zoie Gonzales MD Work Phone: [facility] 03-01-2023 11:15-0400 Systolic blood pressure 133 mm[Hg] Zoie Gonzales MD Work Phone: [facility] 03-01-2023 08:55-0400 Body temperature 97 [degF] Zoie Gonzales MD Work Phone: [facility] 03-01-2023 07:12-0400 Body height 188 cm Zoie Gonzales MD Work Phone: [facility] 03-01-2023 07:12-0400 Body mass index (BMI) [Ratio] 39.54 kg/m2 Zoie Gonzales MD Work Phone: [facility] 03-01-2023 07:12-0400 Body weight 139.71 kg Zoie Gonzales MD Work Phone: [facility] 03-01-2023 07:12-0400 SaO2% (BldA) [Mass fraction] 99 % Zoie Gonzales MD Work Phone: [facility] 02-22-2023 13:33-0400 Body height 188 cm Zoie Gonzales MD Work Phone: [facility] 02-22-2023 13:33-0400 Body mass index (BMI) [Ratio] 39.57 kg/m2 Zoie Gonzales MD Work Phone: [facility] 02-22-2023 13:33-0400 Body weight 139.8 kg Zoie Gonzales MD Work Phone: [facility] 02-22-2023 13:33-0400 Diastolic blood pressure 76 mm[Hg] Zoie Gonzales MD Work Phone: [facility] 02-22-2023 13:33-0400 Heart rate 71 /min Zoie Gonzales MD Work Phone: [facility] 02-22-2023 13:33-0400 SaO2% (BldA) [Mass fraction] 96 % Zoie Gonzales MD Work Phone: [facility] 02-22-2023 13:33-0400 Systolic blood pressure 142 mm[Hg] Zoie Gonzales MD Work Phone: [facility] 02-02-2023 08:39-0400 Body height 188 cm Kate Ferdig R[employer] AND HOUSING INVESTIGATOR - CONTROL SYSTEM MANAGER Work Phone: [facility] 02-02-2023 08:39-0400 Body mass index (BMI) [Ratio] 38.65 kg/m2 Kate Ferdig RENT AND HOUSING INVESTIGATOR - CONTROL SYSTEM MANAGER Work Phone: [facility] 02-02-2023 08:39-0400 Body weight 136.53 kg Kate Ferdig RENT AND HOUSING INVESTIGATOR - CONTROL SYSTEM MANAGER Work Phone: [facility] 02-02-2023 08:39-0400 Diastolic blood pressure 82 mm[Hg] Kate Ferdig RENT AND HOUSING INVESTIGATOR - CONTROL SYSTEM MANAGER Work Phone: [facility] 02-02-2023 08:39-0400 Heart rate 62 /min Kate Ferdig RENT AND HOUSING INVESTIGATOR - CONTROL SYSTEM MANAGER Work Phone: [facility] 02-02-2023 08:39-0400 SaO2% (BldA) [Mass fraction] 98 % Kate Ferdig RENT AND HOUSING INVESTIGATOR - CONTROL SYSTEM MANAGER Work Phone: [facility] 02-02-2023 08:39-0400 Systolic blood pressure 122 mm[Hg] Kate Ferdig RENT AND HOUSING INVESTIGATOR - CONTROL SYSTEM MANAGER Work Phone: [facility] 12-29-2022 01:09-0400 Diastolic blood pressure 82 mm[Hg] No Primary Care Physician [facility] 12-29-2022 01:09-0400 Heart rate 75 /min No Primary Care Physician [facility] 12-29-2022 01:09-0400 Respiratory rate 18 /min No Primary Care Physician [facility] 12-29-2022 01:09-0400 Systolic blood pressure 135 mm[Hg] No Primary Care Physician [facility] 12-28-2022 22:46-0400 Body height 187.96 cm No Primary Care Physician [facility] 12-28-2022 22:46-0400 Body mass index (BMI) [Ratio] 39.2 kg/m2 No Primary Care Physician [facility] 12-28-2022 22:46-0400 Body temperature 98 [degF] No Primary Care Physician [facility] 12-28-2022 22:46-0400 Body weight 138.4 kg No Primary Care Physician [facility] 12-28-2022 22:46-0400 SaO2% (BldA) [Mass fraction] 97 % No Primary Care Physician [facility] 12-08-2022 15:00-0400 Body temperature 99.5 [degF] Jersey Oneil MD Work Phone: [facility] 12-08-2022 15:00-0400 Diastolic blood pressure 68 mm[Hg] Jersey Oneil MD Work Phone: [facility] 12-08-2022 15:00-0400 Heart rate 68 /min Jersey Oneil MD Work Phone: [facility] 12-08-2022 15:00-0400 Respiratory rate 18 /min Jersey Oneil MD Work Phone: [facility] 12-08-2022 15:00-0400 SaO2% (BldA) [Mass fraction] 96 % Jersey Oneil MD Work Phone: [facility] 12-08-2022 15:00-0400 Systolic blood pressure 112 mm[Hg] Jersey Oneil MD Work Phone: [facility] 12-07-2022 03:23-0400 Body mass index (BMI) [Ratio] 39.92 kg/m2 Jersey Oneil MD Work Phone: [facility] 12-07-2022 03:23-0400 Body weight 141.02 kg Jersey Oneil MD Work Phone: [facility] 12-06-2022 08:00-0400 Diastolic blood pressure 81 mm[Hg] Self Referred [facility] 12-06-2022 08:00-0400 Heart rate 82 /min Self Referred [facility] 12-06-2022 08:00-0400 Respiratory rate 22 /min Self Referred [facility] 12-06-2022 08:00-0400 SaO2% (BldA) [Mass fraction] 94 % Self Referred [facility] 12-06-2022 08:00-0400 Systolic blood pressure 168 mm[Hg] Self Referred [facility] 12-06-2022 06:38-0400 Body temperature 98.1 [degF] Self Referred [facility] 12-05-2022 22:45-0400 Body height 187.96 cm Self Referred [facility] 12-05-2022 22:45-0400 Body mass index (BMI) [Ratio] 41 kg/m2 Self Referred [facility] 12-05-2022 22:45-0400 Body weight 145 kg Self Referred [facility] 12-03-2022 14:21-0400 Body height 188 cm Zoie Gonzales MD Work Phone: [facility] 12-03-2022 14:21-0400 Body mass index (BMI) [Ratio] 39.75 kg/m2 Zoie Gonzales MD Work Phone: [facility] 12-03-2022 14:21-0400 Body weight 140.43 kg Zoie Gonzales MD Work Phone: [facility] 12-03-2022 14:21-0400 Diastolic blood pressure 58 mm[Hg] Zoie Gonzales MD Work Phone: [facility] 12-03-2022 14:21-0400 Heart rate 78 /min Zoie Gonzales MD Work Phone: [facility] 12-03-2022 14:21-0400 SaO2% (BldA) [Mass fraction] 92 % Zoie Gonzales MD Work Phone: [facility] 12-03-2022 14:21-0400 Systolic blood pressure 130 mm[Hg] Zoie Gonzales MD Work Phone: [facility] 11-18-2022 11:26-0400 Body height 188 cm Sadine Oredein RENT AND HOUSING INVESTIGATOR - CONTROL SYSTEM MANAGER Work Phone: [facility] 11-18-2022 11:26-0400 Body mass index (BMI) [Ratio] 37.88 kg/m2 Samra Gonzalez RENT AND HOUSING INVESTIGATOR - CONTROL SYSTEM MANAGER Work Phone: [facility] 11-18-2022 11:26-0400 Body weight 133.81 kg Samra Gonzalez RENT AND HOUSING INVESTIGATOR - CONTROL SYSTEM MANAGER Work Phone: [facility] 11-11-2022 09:55-0400 Body height 189.2 cm Chris Boyce MD Work Phone: [facility] 11-11-2022 09:55-0400 Body mass index (BMI) [Ratio] 39.18 kg/m2 Chris Boyce MD Work Phone: [facility] 11-11-2022 09:55-0400 Body weight 140.25 kg Chris Boyce MD Work Phone: [facility] 11-11-2022 09:55-0400 Diastolic blood pressure 80 mm[Hg] Chris Boyce MD Work Phone: [facility] 11-11-2022 09:55-0400 Heart rate 71 /min Chris Boyce MD Work Phone: [facility] 11-11-2022 09:55-0400 Respiratory rate 18 /min Chris Boyce MD Work Phone: [facility] 11-11-2022 09:55-0400 SaO2% (BldA) [Mass fraction] 91 % Chris Boyce MD Work Phone: [facility] Comment on above: 11-11-2022 09:55-0400 Systolic blood pressure 138 mm[Hg] Chris Boyce MD Work Phone: [facility] 10-27-2022 08:18-0400 Body height 189.[address] Vinayak Ontiveros Work Phone: [facility] 10-27-2022 08:18-0400 Body mass index (BMI) [Ratio] 39.5 kg/m2 Dr. Vinayak Ontiveros Work Phone: [facility] 10-27-2022 08:18-0400 Body temperature 97.5 [degF] Dr. Vinayak Ontiveros Work Phone: [facility] 10-27-2022 08:18-0400 Body weight 141.[address] Vinayak Ontiveros Work Phone: [facility] 10-27-2022 08:18-0400 Diastolic blood pressure 74 mm[Hg] Dr. Vinayak Ontiveros Work Phone: [facility] 10-27-2022 08:18-0400 Heart rate 58 /min Dr. Vinayak Ontiveros Work Phone: [facility] 10-27-2022 08:18-0400 Respiratory rate 18 /min Dr. Vinayak Ontiveros Work Phone: [facility] 10-27-2022 08:18-0400 SaO2% (BldA) [Mass fraction] 95 % Dr. Vinayak Ontiveros Work Phone: [facility] 10-27-2022 08:18-0400 Systolic blood pressure 132 mm[Hg] Dr. Vinayak Ontiveros Work Phone: [facility] 09-28-2022 13:14-0400 Body height 188 cm Juanine Godwindein RENT AND HOUSING INVESTIGATOR - CONTROL SYSTEM MANAGER Work Phone: [facility] 09-28-2022 13:14-0400 Body mass index (BMI) [Ratio] 39.54 kg/m2 Sadine Oredein RENT AND HOUSING INVESTIGATOR - CONTROL SYSTEM MANAGER Work Phone: [facility] 09-28-2022 13:14-0400 Body weight 139.71 kg Sadine Oredein RENT AND HOUSING INVESTIGATOR - CONTROL SYSTEM MANAGER Work Phone: [facility] 09-28-2022 13:14-0400 Diastolic blood pressure 72 mm[Hg] Juanine Godwindein RENT AND HOUSING INVESTIGATOR - CONTROL SYSTEM MANAGER Work Phone: [facility] 09-28-2022 13:14-0400 Heart rate 66 /min Samra Gonzalez RENT AND HOUSING INVESTIGATOR - CONTROL SYSTEM MANAGER Work Phone: [facility] 09-28-2022 13:14-0400 Respiratory rate 20 /min Samra Martin RENT AND HOUSING INVESTIGATOR - CONTROL SYSTEM MANAGER Work Phone: [facility] 09-28-2022 13:14-0400 SaO2% (BldA) [Mass fraction] 96 % Samra Gonzalez RENT AND HOUSING INVESTIGATOR - CONTROL SYSTEM MANAGER Work Phone: [facility] 09-28-2022 13:14-0400 Systolic blood pressure 138 mm[Hg] Samra Gonzalez RENT AND HOUSING INVESTIGATOR - CONTROL SYSTEM MANAGER Work Phone: [facility] 08-21-2022 14:43-0400 Body temperature 97.8 [degF] Dr. Vinayak Ontiveros Work Phone: [facility] 08-21-2022 14:43-0400 Diastolic blood pressure 55 mm[Hg] Dr. Vinayak Ontiveros Work Phone: [facility] 08-21-2022 14:43-0400 Heart rate 82 /min Dr. Vinayak Ontiveros Work Phone: [facility] 08-21-2022 14:43-0400 Respiratory rate 18 /min Dr. Vinayak Ontiveros Work Phone: [facility] 08-21-2022 14:43-0400 SaO2% (BldA) [Mass fraction] 95 % Dr. Vinayak Ontiveros Work Phone: [facility] 08-21-2022 14:43-0400 Systolic blood pressure 117 mm[Hg] Dr. Vinayak Ontiveros Work Phone: [facility] 08-21-2022 06:29-0400 Body mass index (BMI) [Ratio] 39.6 kg/m2 Dr. Vinayak Ontiveros Work Phone: [facility] 08-21-2022 06:29-0400 Body weight 141.[address] Vinayak Ontiveros Work Phone: [facility] 08-21-2022 06:12-0400 Inhaled oxygen flow rate 2 L/min Dr. Vinayak Ontiveros Work Phone: [facility] 08-20-2022 13:18-0400 Body height 189.[address] Vinayak Ontiveros Work Phone: [facility] 07-28-2022 10:42-0500 Body mass index (BMI) [Ratio] 38.7 kg/m2 Dr. Vinayak Ontiveros Work Phone: [facility] 07-28-2022 10:42-0500 Body weight 136.[address] Vinayak Ontiveros Work Phone: [facility] 07-06-2022 14:28-0500 Body height 188 cm Zoie Gonzales MD Work Phone: [facility] 07-06-2022 14:28-0500 Body mass index (BMI) [Ratio] 38.26 kg/m2 Zoie Gonzales MD Work Phone: [facility] 07-06-2022 14:28-0500 Body weight 135.17 kg Zoie Gonzales MD Work Phone: [facility] 04-01-2022 11:20-0500 Body height 187.[address] Vinayak Ontiveros Work Phone: [facility] Work Phone: 04-01-2022 11:20-0500 Body mass index (BMI) [Ratio] 37.7 kg/m2 Dr. Vinayak Ontiveros Work Phone: [facility] Work Phone: 04-01-2022 11:20-0500 Body weight 133.[address] Vinayak Ontiveros Work Phone: [facility] Work Phone: 04-01-2022 11:20-0500 Diastolic blood pressure 62 mm[Hg] Dr. Vinayak Ontiveros Work Phone: [facility] Work Phone: 04-01-2022 11:20-0500 Heart rate 50 /min Dr. Vinayak Ontiveros Work Phone: [facility] Work Phone: 04-01-2022 11:20-0500 SaO2% (BldA) [Mass fraction] 96 % Dr. Vinayak Ontiveros Work Phone: [facility] Work Phone: 04-01-2022 11:20-0500 Systolic blood pressure 108 mm[Hg] Dr. Vinayak Ontiveros Work Phone: [facility] Work Phone: 01-27-2022 07:56-0400 Body mass index (BMI) [Ratio] 38.6 kg/m2 Dr. Vinayak Ontiveros Work Phone: [facility] Work Phone: 01-27-2022 07:56-0400 Body weight 136.[address] Vinayak Ontiveros Work Phone: [facility] Work Phone: 01-12-2022 13:15-0400 Body temperature 98.9 [degF] Dr. Vinayak Ontiveros Work Phone: [facility] Work Phone: 01-12-2022 13:15-0400 Diastolic blood pressure 59 mm[Hg] Dr. Vinayak Ontiveros Work Phone: [facility] Work Phone: 01-12-2022 13:15-0400 Heart rate 68 /min Dr. Vinayak Ontiveros Work Phone: [facility] Work Phone: 01-12-2022 13:15-0400 Respiratory rate 16 /min Dr. Vinayak Ontiveros Work Phone: [facility] Work Phone: 01-12-2022 13:15-0400 SaO2% (BldA) [Mass fraction] 95 % Dr. Vianyak Ontiveros Work Phone: [facility] Work Phone: 01-12-2022 13:15-0400 Systolic blood pressure 117 mm[Hg] Dr. Vinayak Ontiveros Work Phone: [facility] Work Phone: 01-12-2022 10:42-0400 Body height 187.[address] Vinayak Ontiveros Work Phone: [facility] Work Phone: 01-12-2022 10:42-0400 Body mass index (BMI) [Ratio] 38 kg/m2 Dr. Vinayak Ontiveros Work Phone: [facility] Work Phone: 01-12-2022 10:42-0400 Body weight 134.[address] Vinayak Ontiveros Work Phone: [facility] Work Phone: 12-30-2021 08:52-0400 Body height 189.2 cm Tree Gonzales MD Work Phone: [facility] 12-30-2021 08:52-0400 Body mass index (BMI) [Ratio] 36.86 kg/m2 Tree Gonzales MD [facility] 12-30-2021 08:52-0400 Body weight 132 kg Tree Gonzales MD Work Phone: [facility] 12-29-2021 09:25-0400 Body mass index (BMI) [Ratio] 39.6 kg/m2 Dr. Vinayak Ontiveros Work Phone: [facility] Work Phone: 12-29-2021 09:25-0400 Body weight 136.[address] Vinayak Ontiveros Work Phone: [facility] Work Phone: 12-29-2021 09:25-0400 Diastolic blood pressure 86 mm[Hg] Dr. Vinayak Ontiveros Work Phone: [facility] Work Phone: 12-29-2021 09:25-0400 Heart rate 65 /min Dr. Vinayak Ontiveros Work Phone: [facility] Work Phone: 12-29-2021 09:25-0400 SaO2% (BldA) [Mass fraction] 96 % Dr. Vinayak Ontiveros Work Phone: [facility] Work Phone: 12-29-2021 09:25-0400 Systolic blood pressure 166 mm[Hg] Dr. Vinayak Ontiveros Work Phone: [facility] Work Phone: 12-01-2021 16:00-0400 Diastolic blood pressure 62 mm[Hg] Zoie Gonzales MD Work Phone: [facility] 12-01-2021 16:00-0400 Heart rate 57 /min Zoie Gonzales MD Work Phone: [facility] 12-01-2021 16:00-0400 Respiratory rate 19 /min Zoie Gonzales MD Work Phone: [facility] 12-01-2021 16:00-0400 SaO2% (BldA) [Mass fraction] 95 % Zoie Gonzales MD Work Phone: [facility] 12-01-2021 16:00-0400 Systolic blood pressure 119 mm[Hg] Zoei Gonzales MD Work Phone: [facility] 12-01-2021 11:14-0400 Body temperature 97.2 [degF] Zoie Gonzales MD Work Phone: [facility] 09-10-2021 01:37-0400 Diastolic blood pressure 83 mm[Hg] Dr. Vinayak Ontiveros Work Phone: [facility] Work Phone: 09-10-2021 01:37-0400 Heart rate 55 /min Dr. Vinayak Ontiveros Work Phone: [facility] Work Phone: 09-10-2021 01:37-0400 Respiratory rate 19 /min Dr. Vinayak Ontiveros Work Phone: [facility] Work Phone: 09-10-2021 01:37-0400 SaO2% (BldA) [Mass fraction] 95 % Dr. Vinayak Ontiveros Work Phone: [facility] Work Phone: 09-10-2021 01:37-0400 Systolic blood pressure 128 mm[Hg] Dr. Vinayak Ontiveros Work Phone: [facility] Work Phone: 09-09-2021 23:44-0400 Body height 185.[address] Vinayak Ontiveros Work Phone: [facility] Work Phone: 09-09-2021 23:44-0400 Body mass index (BMI) [Ratio] 41.5 kg/m2 Dr. Vinayak Ontiveros Work Phone: [facility] Work Phone: 09-09-2021 23:44-0400 Body weight [address] Vinayak Ontiveros Work Phone: [facility] Work Phone: 09-09-2021 22:56-0400 Body temperature 98.1 [degF] Dr. Vinayak Ontiveros Work Phone: [facility] Work Phone: 03-18-2021 08:56-0400 Body temperature 98.4 [degF] Zoie Gonzales MD Work Phone: [facility] Work Phone: 03-18-2021 08:56-0400 Heart rate 71 /min Zoie Gonzales MD Work Phone: [facility] Work Phone: 03-18-2021 08:56-0400 SaO2% (BldA) [Mass fraction] 92 % Zoie Gonzales MD Work Phone: [facility] Work Phone: 03-18-2021 00:00-0400 Diastolic blood pressure 39 mm[Hg] Zoie Gonzales MD Work Phone: [facility] Work Phone: 03-18-2021 00:00-0400 Respiratory rate 16 /min Zoie Gonzales MD Work Phone: [facility] Work Phone: 03-18-2021 00:00-0400 Systolic blood pressure 103 mm[Hg] Zoie Gonzales MD Work Phone: [facility] Work Phone: 03-17-2021 07:29-0400 Body height 188 cm Zoie Gonzales MD Work Phone: [facility] Work Phone: 03-17-2021 07:29-0400 Body mass index (BMI) [Ratio] 38.27 kg/m2 Zoie Gonzales MD Work Phone: [facility] Work Phone: 03-17-2021 07:29-0400 Body weight 135.2 kg Zoie Gonzales MD Work Phone: [facility] Work Phone: 09-15-2019 14:50-0400 Body Temperature 98.6 [degF] [facility] [place] 09-15-2019 14:50-0400 BP Diastolic 66 mm[Hg] Bizdom [facility] 09-15-2019 14:50-0400 BP Systolic 132 mm[Hg] [facility] [place] 09-15-2019 14:50-0400 Pulse (Heart Rate) 61 /min JustenAdan [facility] [place] 09-15-2019 14:50-0400 Pulse Oximetry 100 % [facility] [place] 09-15-2019 14:50-0400 Respiratory Rate 16 /min [facility] [place] 09-15-2019 04:48-0400 BMI (Body Mass Index) 35.23 kg/m2 Justen Martin [facility], [place] 09-15-2019 04:48-0400 Body weight 124.47 kg Justen [facility] [place] 09-09-2019 07:55-0400 Body Temperature 97.9 [degF] [facility], [place] 09-09-2019 07:55-0400 BP Diastolic 74 mm[Hg] [facility] [place] 09-09-2019 07:55-0400 BP Systolic 133 mm[Hg] [facility] [place] 09-09-2019 07:55-0400 Pulse (Heart Rate) 61 /min [facility] [place] 09-09-2019 07:55-0400 Pulse Oximetry 96 % [facility] , [place] 09-09-2019 07:55-0400 Respiratory Rate 16 /min [facility] [place] 09-08-2019 04:26-0400 BMI (Body Mass Index) 33.95 kg/m2 [facility] [place] 09-08-2019 04:26-0400 Body weight 119.92 [facility] [place] 09-06-2019 09:30-0400 Height 188 cm [facility] , [place] Encounters Encounter Date Encounter Type Care Provider Facility Start: 03-30-2025 Encounter for other preprocedural examination Terry Figueroa [facility] Start: 03-28-2025 End: 03-28-2025 Telephone encounter France Johnson CNP Work Phone: [facility] [place] Start: 03-16-2025 End: 03-16-2025 Refill Jg Dent APRN - RIA Work Phone: [facility] Comment on above: Primary hypertension Start: 03-15-2025 End: 03-15-2025 Refill Jg Dent APRN - RIA [facility] Comment on above: PAF (paroxysmal atri al fibrillation) (HCC) Start: 03-13-2025 End: 03-13-2025 ambulatory Finn Ferrell Facility:[facility] Start: 02-07-2025 End: 02-07-2025 Office outpatient visit 15 minutes Dominguez Ortega MD Work Phone: [facility] Comment on above: CAD in [place] artery (Primary Dx); Essential hypertension, benign; Mixed hyperlipidemia Start: 02-07-2025 End: 02-07-2025 ambulatory DOMINGUEZ ORTEGA [facility] Start: 02-07-2025 End: 02-07-2025 Follow-up encounter France Johnson CNP Work Phone: [facility] Comment on above: Transthoracic echoca rdiogram (TTE) complete with contrast, bubble, strain, and 3D PRN Start: 02-07-2025 End: 02-07-2025 Subsequent hospital visit by physician France Johnson CNP Work Phone: [facility] Comment on above: Cardiomyopathy, isch emic Start: 02-07-2025 End: 02-07-2025 ambulatory FRANCE SPAIN [facility] Start: 01-29-2025 End: 01-29-[address] Finn Ferrell MD Work Phone: -Cat Scan [facility] Start: 01-29-2025 End: 01-29-[address] Finn Ferrell MD -Cat Scan [facility] Work Phone: Start: 01-29-2025 End: 01-29-2025 ambulatory Finn Ferrell Facility:[facility] Start: 01-19-2025 End: 01-19-[address] Finn Ferrell MD Work Phone: -Laboratory [facility] Start: 01-19-2025 End: 01-19-[address] Finn Ferrell MD -Laboratory [facility] Start: 01-19-2025 End: 01-19-2025 ambulatory Finn Ferrell Facility:[facility] Start: 01-18-2025 End: 02-22-2025 Telephone encounter Dominguez Ortega MD Work Phone: [facility] Comment on above: Cardiac Clearance Start: 01-16-2025 End: 03-18-2025 Follow-up encounter Franceeverett Spain RENT AND HOUSING INVESTIGATOR - CONTROL SYSTEM MANAGER Work Phone: [facility] Comment on above: Comprehensive metabo lic panel, TSH, CBC auto differential, Lipid panel Start: 01-15-2025 End: 01-15-[address] [facility] Start: 01-15-2025 End: 01-15-2025 Refill Christiane Jenkins RENT AND HOUSING INVESTIGATOR - CONTROL SYSTEM MANAGER Work Phone: [facility] Comment on above: Primary hypertension Start: 01-15-2025 End: 01-15-2025 ambulatory [facility] Start: 12-28-2024 End: 12-28-2024 ambulatory [facility] Start: 11-30-2024 End: 11-30-2024 Refill Dominguez Ortega MD Work Phone: [facility] Comment on above: WATTS (dyspnea on exer tion) Start: 11-17-2024 End: 11-17-2024 ambulatory Bernice Zarate RN Located within [facility] Start: 11-15-2024 End: 11-15-[address] [facility] Start: 11-15-2024 End: 11-15-[address] Finn Ferrell MD -[facility] Start: 11-15-2024 End: 11-15-2024 ambulatory Finn Ferrell Facility:[facility] Start: 11-14-2024 End: 11-15-2024 Emergency department patient visit Dr. Finn Ferrell MD Work Phone: -Emergency Department Work Phone: Start: 10-19-2024 End: 10-19-2024 Refill France Johnson CNP Work Phone: [facility] Comment on above: Primary hypertension (Primary Dx) Results Start: 10-18-2024 End: 10-18-2024 ambulatory Bernice Zarate RN [facility] Start: 10-09-2024 End: 10-09-2024 ambulatory [facility] Comment on above: CAD in [place] artery (Primary Dx); Chronic diastolic heart failure (HCC); Cardiomyopathy, ischemic Start: 09-28-2024 End: 11-06-2024 Telephone encounter France Spain APRN - RIA Work Phone: [facility] Comment on above: Orders Start: 09-28-2024 End: 09-28-2024 Office outpatient visit 25 minutes France Spain APRN - RIA Work Phone: [facility] Comment on above: CAD in [place] artery (Primary Dx); PAF (paroxysmal atrial fibrillation) (HCC); Essential hypertension; Mixed hyperlipidemia; Acute on chronic diastolic congestive heart failure (HCC) Start: 09-28-2024 End: 09-28-2024 ambulatory FRANCE [facility] Start: 09-18-2024 End: 09-18-2024 Documentation procedure Bernice Zarate RN [facility] Comment on above: [facility] Outreach Start: 09-14-2024 End: 09-15-2024 Subsequent hospital visit by physician Dominguez Ortega MD Work Phone: [facility] Comment on above: Unstable angina (CMS /HCC) (HCC) (Primary Dx); Stented coronary artery; Stage 3a chronic kidney disease (HCC) Start: 09-14-2024 End: 09-15-2024 Alma ORTEGA [facility] Start: 09-12-2024 End: 09-12-2024 ambulatory Miryam Casas APRN - IRA Work Phone: [facility] Start: 09-11-2024 End: 09-11-[address] Finn Ferrell MD Work Phone: -Laboratory Work Phone: Start: 09-11-2024 End: 09-11-2024 ambulatory Finn Ferrell Facility:[facility] Start: 09-07-2024 End: 09-07-2024 Telephone encounter France Johnson CNP Work Phone: [facility] Comment on above: Procedure Start: 08-31-2024 End: 08-31-[address] Finn Ferrell MD Work Phone: [facility] Work Phone: Start: 08-31-2024 End: 08-31-[address] Finn Ferrell MD -Laboratory, [facility] Start: 08-31-2024 End: 08-31-2024 ambulatory Finn Ferrell Facility:[facility] Start: 08-29-2024 End: 08-29-2024 Telephone encounter France Johnson CNP Work Phone: [facility] Start: 08-24-2024 End: 08-24-2024 Office outpatient visit 25 minutes France Johnson CNP Work Phone: [facility] Comment on above: PAF (paroxysmal atri al fibrillation) (HCC) (Primary Dx); CAD in [place] artery; Essential hypertension; Mixed hyperlipidemia; Obesity (BMI 30-39.9) Start: 08-24-2024 End: 08-24-2024 ambulatory [facility] Start: 08-24-2024 End: 08-24-2024 Subsequent hospital visit by physician France Johnson CNP Work Phone: [facility] Comment on above: Palpitations; PAF (paroxysmal atrial fibrillation) (HCC) CAD in [place] artery ; PAF (paroxysmal atrial fibrillation) (HCC); Essential hypertension; Abnormal EKG Start: 08-24-2024 End: [facility]2024 [facility] Start: 07-20-2024 End: 07-20-2024 Office outpatient visit 25 minutes Francejuan manuel Spain RENT AND HOUSING INVESTIGATOR - CONTROL SYSTEM MANAGER Work Phone: [facility] Comment on above: Palpitations (Primar y Dx); PAF (paroxysmal atrial fibrillation) (HCC); WATTS (dyspnea on exertion) Start: 07-20-2024 End: 07-20-2024 [facility] Start: 07-13-2024 End: 07-13-2024 Telephone encounter Francejuan manuel [place] APRN - CONTROL SYSTEM MANAGER Work Phone: [facility] [place] Comment on above: Appointment (Cancel and R/S) Start: 07-06-2024 End: 07-06-2024 Office outpatient visit 25 minutes France Jason Spain RENT AND HOUSING INVESTIGATOR - CONTROL SYSTEM MANAGER Work Phone: [facility] Comment on above: CAD in [place] artery (Primary Dx); PAF (paroxysmal atrial fibrillation) (HCC); Obesity (BMI 30-39.9); Essential hypertension; Mixed hyperlipidemia; Abnormal EKG Start: 07-06-2024 End: 07-06-2024 Telephone encounter Dominguez Ortega MD Work Phone: [facility] [place] Comment on above: Chest Pain Start: 07-06-2024 End: 07-06-2024 ambulatory [facility] Start: 06-20-2024 End: 06-20-2024 ambulatory Finn Ferrell Facility:[facility] Start: 06-20-2024 End: 06-20-2024 Non-patient / Non-visit Dr. Juan Sams MD -[facility] Work Phone: Start: 06-20-2024 End: 06-20-[address] Finn Ferrell MD Work Phone: -Pulmonary Services/Neurology Work Phone: Start: 06-20-2024 End: 06-20-2024 [facility] Start: 05-22-2024 End: 05-22-2024 Refill Dominguez Ortega MD Work Phone: [facility] Comment on above: CAD in [place] artery Start: 04-28-2024 End: 04-28-2024 Refill Christiane Jenkins RENT AND HOUSING INVESTIGATOR - CONTROL SYSTEM MANAGER Work Phone: [facility] Start: 04-28-2024 End: 04-28-2024 [facility]ulatory [facility] Start: 04-23-2024 End: 04-23-2024 [facility] department [facility] Start: 04-12-2024 End: 04-12-2024 ambulatory [facility] Start: 04-11-2024 End: 04-11-2024 ambulatory [facility] Start: 04-08-2024 End: 04-08-2024 [facility] Start: 03-13-2024 End: 03-14-2024 Refill Kate Pelaez APRN - CONTROL SYSTEM MANAGER Work Phone: [facility] Comment on above: CAD in [place] artery ; Presence of coronary angioplasty implant and graft Start: 03-09-2024 End: 03-09-2024 Refill Jg Dent RENT AND HOUSING INVESTIGATOR - CONTROL SYSTEM MANAGER Work Phone: [facility] Comment on above: Unstable angina (CMS /HCC) (HCC) Paroxysmal atrial fi brillation (HCC); Coronary artery disease of [place] artery of [place] heart with stable angina pectoris (HCC) Start: 02-01-2024 End: 02-01-2024 Office outpatient visit 25 minutes Dominguez Ortega MD Work Phone: [facility] Comment on above: Obesity (BMI 30-39.9 ) (Primary Dx); CAD in [place] artery; Essential hypertension; Mixed hyperlipidemia Start: 12-20-2023 End: 12-20-2023 Telephone encounter Dominguez Ortega MD Work Phone: [facility] Card[facility] Comment on above: Med Management Start: 09-13-2023 Refill France sheth RENT AND HOUSING INVESTIGATOR - CONTROL SYSTEM MANAGER Work Phone: [facility] Comment on above: Unstable angina (CMS /HCC) (HCC) Start: 07-29-2023 End: 07-29-2023 Office outpatient visit 25 minutes France Spain RENT AND HOUSING INVESTIGATOR - CONTROL SYSTEM MANAGER Work Phone: [facility] Comment on above: CAD in [place] artery (Primary Dx); Essential hypertension, benign; Mixed hyperlipidemia; PAF (paroxysmal atrial fibrillation) (HCC); Chronic diastolic heart failure (HCC) Start: 07-13-2023 End: 07-13-[address] Finn Ferrell Work Phone: [facility] Work Phone: Start: 07-13-2023 End: 07-13-[address] Finn Ferrell Work Phone: [facility] Start: 07-12-2023 End: 07-12-[address] Finn Ferrell Work Phone: [facility] Work Phone: Start: 07-12-2023 End: 07-12-[address] Finn Ferrell Work Phone: [facility]-Nuclear Medicine, [facility] Work Phone: Start: 07-09-2023 End: 07-09-2023 Admission to same day surgery center Dr. Finn Ferrell Work Phone: [facility]-Endoscopy Work Phone: Start: 07-09-2023 End: 07-09-[address] Finn Ferrell Work Phone: [facility] Work Phone: Start: 07-05-2023 End: 07-05-2023 Emergency department patient visit Dr. Finn Ferrell Work Phone: [facility]-Emergency Department Work Phone: Start: 07-01-2023 Telephone encounter Chris zavaleta MD Work Phone: [facility] Pulmonary and Sleep Medicine Comment on above: Return call request/ sleep study orders Start: 06-29-2023 End: 06-29-[address] Finn Ferrell Work Phone: [facility] Work Phone: Start: 06-17-2023 End: 06-17-2023 Office outpatient visit 25 minutes France Johnson [facility] Work Phone: [facility] Comment on above: CAD in [place] artery (Primary Dx); Chronic diastolic heart failure (HCC); Essential hypertension, benign; PAF (paroxysmal atrial fibrillation) (HCC); Mixed hyperlipidemia Start: 06-15-2023 Refill Maureen Sung [facility] Start: 05-20-2023 Non-patient / Non-visit Dr. Tanika Ferrell Work Phone: [facility] Start: 05-20-2023 End: 05-20-2023 Admission to same day surgery center Dr. Finn Ferrell Work Phone: [facility]-Endoscopy Work Phone: Start: 05-20-2023 End: 05-20-[address] 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 Finn Ferrell Work Phone: [facility]-Laboratory Work Phone: Start: 04-08-2023 End: 04-08-2023 Office outpatient visit 25 minutes France Spain RENT AND HOUSING INVESTIGATOR - CONTROL SYSTEM MANAGER Work Phone: [facility] Comment on above: CAD in [place] artery (Primary Dx); Chronic diastolic heart failure (HCC); Essential hypertension, benign; PAF (paroxysmal atrial fibrillation) (HCC); Mixed hyperlipidemia Start: 04-07-2023 End: 04-07-[address] Finn Ferrell Work Phone: [facility] Work Phone: Start: 04-01-2023 Myrtle marrufo MD Work Phone: [facility] Card[facility] Start: 03-29-2023 End: 03-29-2023 Office outpatient visit 15 minutes Chris Boyce MD Work Phone: [facility] Pulmonary and Sleep Medicine Comment on above: HIPOLITO (obstructive sle ep apnea) (Primary Dx) Start: 03-29-2023 End: 03-29-[address] Finn Ferrell Work Phone: [facility] Work Phone: Start: 03-29-2023 End: 03-29-[address] Finn Ferrell Work Phone: [facility]-Radiology, [facility] Work Phone: Start: 03-24-2023 End: 03-24-[address] Finn Ferrell Work Phone: [facility] Work Phone: Start: 03-24-2023 End: 03-24-[address] Finn Ferrell Work Phone: [facility]Laboratory Work Phone: Start: 03-18-2023 End: 03-18-2023 Office outpatient visit 25 minutes France Spain RENT AND HOUSING INVESTIGATOR - [employer] Work Phone: [facility] Comment on above: CAD in [place] artery (Primary Dx); Essential hypertension, benign; Chronic diastolic heart failure (HCC); PAF (paroxysmal atrial fibrillation) (HCC); Mixed hyperlipidemia Start: 03-01-2023 End: 03-01-2023 Subsequent hospital visit by physician Zoie Gonzales MD Work Phone: [facility] Cath/EP Lab Comment on above: Atherosclerotic hear t disease of [place] coronary artery with other forms of angina pectoris (HCC) Start: 02-24-2023 ambulatory France sheth RENT AND HOUSING INVESTIGATOR - [employer] Work Phone: [facility] Start: 02-22-2023 End: 02-22-2023 Office outpatient visit 25 minutes Zoie Gonzales MD Work Phone: [facility] Comment on above: Atherosclerotic hear t disease of [place] coronary artery with other forms of angina pectoris (HCC); NSTEMI (non-ST elevated myocardial infarction) ([facility]/HCC) (HCC); Hypertension, unspecified type; PAF (paroxysmal atrial fibrillation) ([facility]) Start: 02-19-2023 End: 02-19-2023 ambulatory [facility] Work Phone: Start: 02-19-2023 End: 02-19-[address] Finn Ferrell Work Phone: [facility]Laboratory Work Phone: Start: 02-09-2023 Telephone encounter Zoie Gonzales MD Work Phone: [facility] Comment on above: Med Management Start: 02-05-2023 End: 02-05-2023 ambulatory No Primary Care Physician [facility] Work Phone: Start: 02-05-2023 End: 02-05-2023 Patient encounter procedure No Primary Care Physician [facility]Laboratory, [place] Work Phone: Start: 02-02-2023 End: 02-02-2023 Office outpatient visit 25 minutes Kate Pelaez RENT AND HOUSING INVESTIGATOR - [employer] Work Phone: [facility] Comment on above: WATTS (dyspnea on exer tion) (Primary Dx); CAD in [place] artery; PAF (paroxysmal atrial fibrillation) ([facility]/HCC) (HCC); 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; Stage 3a chronic kidney disease (HCC); Primary hypertension; Other hyperlipidemia; Presence of coronary angioplasty implant and graft Start: 01-27-2023 Refill France sheth RENT AND HOUSING INVESTIGATOR - [employer] Work Phone: [facility] Comment on above: Presence of coronary angioplasty implant and graft Start: 01-27-2023 End: 01-27-2023 ambulatory No Primary Care Physician [facility] Work Phone: Start: 01-27-2023 End: 01-27-2023 Patient encounter procedure No Primary Care Physician [facility]Laboratory Work Phone: Start: 01-26-2023 Telephone encounter Zoie Gonzales MD Work Phone: [facility] Comment on above: symptoms Start: 01-01-2023 Telephone encounter France Spain RENT AND HOUSING INVESTIGATOR - [employer] Work Phone: [facility] Comment on above: hematoma Start: 12-30-2022 Orders Only France sheth RENT AND HOUSING INVESTIGATOR - [employer] Work Phone: [facility] Start: 12-28-2022 End: 12-29-2022 Emergency department patient visit No Primary Care Physician [facility]-Emergency Department Work Phone: Start: 12-14-2022 End: 12-14-2022 ambulatory No Primary Care Physician [facility] Work Phone: Start: 12-14-2022 End: 12-14-2022 Patient encounter procedure No Primary Care Physician [facility] Start: 12-08-2022 Orders Only Patricia cole RENT AND HOUSING INVESTIGATOR - CONTROL SYSTEM MANAGER Work Phone: [facility] Comment on above: Renal insufficiency (Primary Dx) Start: 12-07-2022 Office outpatient vi sit 10 minutes Chris Boyce MD Work Phone: [facility] Pulmonary and Sleep Medicine Comment on above: HIPOLITO (obstructive sle ep apnea) (Primary Dx) Start: 12-06-2022 End: 12-08-2022 Evaluation and management of inpatient Jersey Oneil MD Work Phone: [facility] Comment on above: Chest pain (Primary Dx) Start: 12-06-2022 Non-patient / Non-visit Self Referchuckie d [facility] [facility] Work Phone: Start: 12-05-2022 End: 12-06-2022 Emergency department patient visit Self Referred [facility]-Emergency Department Work Phone: Start: 12-03-2022 End: 12-03-2022 Office outpatient visit 25 minutes Zoie Gonzales MD Work Phone: [facility] Comment on above: CAD in [place] artery ; Primary hypertension; NSTEMI (non-ST elevated myocardial infarction) ([facility]/HCC) ([facility]); PAF (paroxysmal atrial fibrillation) ([facility]) ([facility]); Other hyperlipidemia Start: 11-25-2022 End: 11-25-2022 ambulatory Self Referred [facility] Work Phone: Start: 11-25-2022 End: 11-25-2022 Patient encounter procedure Self Referred [facility] Start: 11-20-2022 End: 11-21-2022 ambulatory Chris Boyce MD Work Phone: [facility] Comment on above: HIPOLITO (obstructive sle ep apnea) Start: 11-18-2022 End: 11-18-2022 Subsequent hospital visit by physician Samra Gonzalez RENT AND HOUSING INVESTIGATOR - CONTROL SYSTEM MANAGER Work Phone: [facility] Comment on above: Localized edema Start: 11-11-2022 End: 11-11-2022 Office outpatient visit 15 minutes Chris Boyce MD Work Phone: [facility] Pulmonary and Sleep Medicine Comment on above: HIPOLITO (obstructive sle ep apnea) (Primary Dx); Transient disorder of initiating or maintaining sleep Start: 10-27-2022 End: 10-27-[address] Vinayak Ontiveros Work Phone: [facility] Work Phone: Start: 10-27-2022 End: 10-27-[address] Vinayak Ontiveros Work Phone: [facility]Laboratory Start: 10-27-2022 End: 10-27-[address] Vinayak Ontiveros Work Phone: [facility] Start: 10-22-2022 End: 10-22-[address] Vinayak Ontiveros Work Phone: [facility] Work Phone: Start: 10-22-2022 End: 10-22-[address] Vinayak Ontiveros Work Phone: [facility]Laboratory Start: 10-14-2022 Documentation procedure Samra Martin RENT AND HOUSING INVESTIGATOR - CONTROL SYSTEM MANAGER Work Phone: [facility] Start: 10-06-2022 End: 10-06-[address] Vinayak Ontiveros Work Phone: [facility]Laboratory Start: 10-01-2022 Orders Only Sadine Janie Mart in RENT AND HOUSING INVESTIGATOR - CONTROL SYSTEM MANAGER Work Phone: [facility] Comment on above: WATTS (dyspnea on exer tion) (Primary Dx); Localized edema Start: 09-29-2022 End: 09-29-2022 ambulatory No Primary Care Physician [facility] Work Phone: Start: 09-29-2022 End: 09-29-[address] Vinayak Ontiveros Work Phone: [facility]Laboratory Start: 09-28-2022 End: 09-28-2022 Office outpatient visit 25 minutes Samra Gonzalez APRN [facility] Work Phone: [facility] Comment on above: Coronary artery dise ase involving [place] coronary artery of [place] heart without angina pectoris (Primary Dx); Localized edema; PAF (paroxysmal atrial fibrillation) (CMS/HCC) (HCC); Primary hypertension; Chronic obstructive pulmonary disease, unspecified COPD type (HCC); WATTS (dyspnea on exertion); Shortness of breath on exertion Start: 09-25-2022 End: 09-25-[address] Vinayak Ontiveros Work Phone: [facility] Work Phone: Start: 09-25-2022 End: 09-25-[address] Vinayak Ontiveros Work Phone: [facility] Start: 09-22-2022 End: 09-22-[address] Vinayak Ontiveros Work Phone: [facility] Work Phone: Start: 09-22-2022 End: 09-22-[address] Vinayak Ontiveros Work Phone: [facility] Start: 08-21-2022 Non-patient / Non-visit Dr. Billy Ontiveros Work Phone: [facility] Start: 08-20-2022 Non-patient / Non-visit Dr. Billy Ontiveros Work Phone: [facility] Start: 08-20-2022 End: 08-20-2022 Non-patient / Non-visit Dr. Vinayak Ontiveros Work Phone: [facility] Start: 08-20-2022 End: 08-21-2022 Evaluation and management of inpatient Dr. Vinayak Ontiveros [facility] Start: 08-20-2022 End: 08-21-[address] Vinayak Ontiveros Work Phone: [facility] Work Phone: Start: 08-12-2022 End: 08-12-[address] Vinayak Ontiveros Work Phone: [facility] Start: 07-28-2022 End: 07-28-[address] Vinayak Ontiveros Work Phone: [facility] Gastro[facility] Start: 07-06-2022 End: 07-06-2022 Office outpatient visit 25 minutes Zoie Gonzales MD Work Phone: [facility] Comment on above: CAD in [place] artery ; Primary hypertension; PAF (paroxysmal atrial fibrillation) (CMS/HCC) (HCC); Other hyperlipidemia Start: 05-20-2022 End: 05-20-[address] Vinayak Ontiveros Work Phone: [facility] Start: 05-19-2022 End: 05-19-[address] Vinayak Ontiveros Work Phone: [facility] Start: 04-01-2022 End: 04-01-[address] Vinayak Ontiveros Work Phone: [facility] Work Phone: Start: 04-01-2022 End: 04-01-[address] Vinayak Ontiveros Work Phone: [facility]astro[facility] Start: 01-27-2022 End: 01-27-[address] Vinayak Ontiveros Work Phone: [facility]astro[facility] Start: 01-12-2022 Non-patient / Non-visit Dr. Billy Ontiveros Work Phone: [facility] Start: 01-12-2022 End: 01-12-2022 Admission to same day surgery center Dr. Vinayak Ontiveros Work Phone: [facility]-Endoscopy Start: 01-12-2022 End: 01-12-2022 Non-patient / Non-visit Dr. Vinayak Ontiveros Work Phone: [facility] Start: 12-30-2021 End: 12-30-2021 Subsequent hospital visit by physician Tree Gonzales MD Work Phone: [facility] Pulmonary Function Lab Comment on above: Chronic obstructive pulmonary disease, unspecified (HCC); COPD with asthma (HCC) Start: 12-29-2021 End: 12-29-[address] Vinayak Ontiveros Work Phone: [facility]astro[facility] Start: 12-01-2021 End: 12-01-2021 Subsequent hospital visit by physician Zoie Gonzales MD Work Phone: [facility] [employer] Comment on above: Arrived Start: 10-31-2021 End: 10-31-2021 Patient encounter procedure [facility] Start: 10-09-2021 End: 10-09-[address] Vin[facility] Start: 09-09-2021 End: 09-10-2021 Emergency department patient visit Dr. Vinayak Ontiveros Work Phone: [facility]-Emergency Department Start: 08-01-2021 Non-patient / Non-visit Dr. Billy Ontiveros Work Phone: [facility] Start: 08-01-2021 End: 08-01-[address] Vinayak Ontiveros Work Phone: [facility]-Pulmonary Services/Neurology Start: 07-02-2021 End: 07-02-[address] Vinayak Ontiveros Work Phone: [facility]-Cat Scan, [facility] Start: 05-07-2021 End: 05-07-2021 Subsequent hospital visit by physician Reba Reed MD [facility] Phone[facility] Start: 03-17-2021 End: 03-18-2021 Subsequent hospital visit by physician Zoie Gonzales MD Work Phone: [facility] Capacity Management Comment on above: CAD in [place] artery (Primary Dx); Coronary artery disease involving [place] coronary artery of [place] heart without angina pectoris Start: 03-10-2021 End: 03-10-2021 Subsequent hospital visit by physician France Spain APRN - CONTROL SYSTEM MANAGER Work Phone: [facility] Comment on above: Stable angina pector is (HCC); Coronary artery disease involving [place] coronary artery of [place] heart without angina pectoris Start: 10-22-2020 End: 10-22-2020 Subsequent hospital visit by physician Tree Gonzales MD Work Phone: [facility] Comment on above: Pneumonia due to COV ID-19 virus; ILD (interstitial lung disease) (HCC); Pneumoconiosis (HCC) Pneumonia due to COV ID-19 virus; Interstitial lung disease (HCC); Pneumoconiosis (HCC) Start: 09-15-2019 End: 09-15-2019 Emergency department patient visit Justen Martin Work Phone: [facility] 2E TELEMETRY Comment on above: Chest pain, [...] Phone: Start: 02-07-2025 TTE w or wo fol wcon,Doppler France Spain RENT AND HOUSING INVESTIGATOR - CONTROL SYSTEM MANAGER Work Phone: Start: 01-29-2025 MRI of lower extremity Dr. Finn Ferrell MD Work Phone: Start: 01-29-2025 US scan of thyroid Dr. Finn Ferrell MD Work Phone: Start: 01-19-[address] Finn Ferrell MD Work Phone: Comment on above: Test Ordered: [id number] JAK2 Mutation Amanda sis, QualJAK2 V617F mutation detection Comment [facility] Reference Range: .Result: NEGATIVE for the JAK2 V617F mutation.Interpretation: The G to T nucleotide change encoding [id number] mutation was not detected. 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 The [employer] Absolute Quantitation softwarewill compare the patient specimen valuse to the standardcurves and generate percent values for wild type andmutant type. In vitro studies have indicated that thisassay has an analytical sensitivity of 1%.References:Kyaw MILLAN, Vinayak GARCIA, Moose PJ, et al. Acquiredmutation of the tyrosine kinase JAK2 in humanmyeloproliferative disorders. Lancet. 2005 Aug 09;365(5080):8642-7716. Ralph Harris, Andre Ross, Gretchen Land JP. 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 Nature. 2005 Sep 18;434(6887):4492-7485.Nehemias R, Noy F, Bhumika , et al. A [id number] mutation of JAK2 in myeloproliferative disorders.N Engl J Med. 2005 Sep 18; 35217):7949-4435.Director Review: Roman CAMPOS Reference Range: .Technical Component performed at [employer] RTPProfessional Component performed by:Chan Minor, PhD, FACMGDirector, Molecular OncologyFalmouth Hospital [id number], 190 scPharmaceuticalsJohn J. Pershing [facility] [phone] test was developed and its performance characteristicsdetermined by [employer]. It has not been cleared orapproved by the Food and Drug Administration.Performed at: [facility] [id number] [employer] [place], [place] [id number] Director: Adelina Lockhart [facility], Phone: [phone] at: [facility] [employer] FHC2004 [employer] TechnologiesCAPISTRANO [place]ACH, [place] [id number] Director: Adelina Lockhart [facility], Phone: [phone] at: [address] [id number] Director: Terrance Ashford PhD, Phone: [phone] Start: 01-15-[address] Finn [...] Start: 09-15-2024 Comprehensive metabolic panel Rebecca verdin RENT AND HOUSING INVESTIGATOR - CONTROL SYSTEM MANAGER Work Phone: Start: 09-15-2024 Lipid panel Rebecca De Dios RENT AND HOUSING INVESTIGATOR - CONTROL SYSTEM MANAGER Work Phone: Start: 09-15-2024 Lipid 1996 panel - Serum or Plasma Dominguez Ortega MD Work Phone: Start: 09-14-2024 Ecg routine ecg w/least 12 lds trcg only w/o i&r Marycruz Franks MD Work Phone: Start: 09-14-2024 Cardiac catheterization study [place] RENT AND HOUSING INVESTIGATOR - CONTROL SYSTEM MANAGER Work Phone: Start: 09-14-2024 Percutaneous coronary intervention [place] RENT AND HOUSING INVESTIGATOR - CONTROL SYSTEM MANAGER Work Phone: Start: 09-14-2024 End: 09-14-2024 POCT ACT Dominguez Ortega MD Work Phone: Start: 09-14-2024 Ecg routine ecg w/least 12 lds trcg only w/o i&r Miryam Casas RENT AND HOUSING INVESTIGATOR - CONTROL SYSTEM MANAGER Work Phone: Start: 09-11-2024 Thyrotropin [Units/volume] in [...] w or wo fol wcon,Doppler [place] RENT AND HOUSING INVESTIGATOR - CONTROL SYSTEM MANAGER Work Phone: Start: 07-06-2024 Ecg routine [...] Serum or Plasma [place] APRN - CONTROL SYSTEM MANAGER Work Phone: Start: 02-02-2023 Ecg routine ecg w/least 12 lds trcg only w/o i&r Zoie Gonzales MD Work Phone: Start: 12-30-2022 Basic metabolic 2000 panel - Serum or Plasma [place] APRN - CONTROL SYSTEM MANAGER Work Phone: Start: 12-28-2022 Plain x-ray [...] w/wom-mode compl spec&colr d Sadine D Oredein RENT AND HOUSING INVESTIGATOR - CONTROL SYSTEM MANAGER Work Phone: Start: 10-29-2022 Thyrotropin [Units/volume] [...] ecg w/least 12 lds w/i&r Milagro Jaimes RENT AND HOUSING INVESTIGATOR - CONTROL SYSTEM MANAGER Work Phone: Start: 12-01-2021 Basic metabolic panel calcium total Milagro Jaimes RENT AND HOUSING INVESTIGATOR - CONTROL SYSTEM MANAGER Work Phone: Start: 10-31-2021 Thyrotropin [Units/volume] [...] 03-18-2021 Blood count complete automated Milagro matias RENT AND HOUSING INVESTIGATOR - CONTROL SYSTEM MANAGER Work Phone: Start: 03-17-2021 Ecg routine ecg w/least 12 lds w/i&r Zoie Gonzales MD Work Phone: Start: 03-17-2021 CARDIAC CATH NURSING LOG 3m Scanning Start: 03-17-2021 Cardiac catheterization Zoie Gonzales MD Work Phone: Start: 03-17-2021 End: 03-17-2021 Coagulation time activated Zoie tolliver MD Work Phone: Start: 03-10-2021 Basic metabolic panel calcium total [place] RENT AND HOUSING INVESTIGATOR - CONTROL SYSTEM MANAGER Work Phone: Start: 10-22-2020 Nebulizer therapy Tree Gonzales MD Work Phone: Start: 10-22-2020 Brncdilat rspse spmtry pre&post-brncdilat admn Tree Gonzales MD Work Phone: Start: 06-17-2020 H/O: artificial joint Presence of left artificial shoulder joint [place] APRN - CONTROL SYSTEM MANAGER Work Phone: Start: 06-17-2020 History of operative procedure on knee History of knee joint replacement [place] RENT AND HOUSING INVESTIGATOR - CONTROL SYSTEM MANAGER Work Phone: Start: 06-17-2020 History of placement of stent for coronary artery disease History of coronary artery stent placement [place] RENT AND HOUSING INVESTIGATOR - CONTROL SYSTEM MANAGER Work Phone: Start: 02-20-2020 Colonoscopy Zoie [...] routine ecg w/least 12 lds w/i&r Justen Gerberumilli Work Phone: Start: 09-09-2019 Blood count complete auto&auto difrntl wbc George Reed Work Phone: Start: 09-09-2019 Blood count complete automated Georgekashif Reed Work Phone: Start: 09-08-2019 CARDIAC CATH NURSING LOG 3m Scanning Start: 09-08-2019 DIAGNOSTIC CARDIAC MOLD SANDER PROCEDURE Miryam Casas Work Phone: Start: 09-08-2019 [...] Start: 09-06-2019 Assay of troponin quantitative Yemi Yomi arasharee Work Phone: Start: 09-06-2019 Basic metabolic panel calcium total Yemi Galeasraman Work Phone: Start: 09-05-2019 Assay of troponin quantitative Yemi Oymi araman Work Phone: Start: 09-05-2019 Assay of troponin quantitative Yemi Yomi araman Work Phone: Start: 09-05-2019 Assay of magnesium Ari Milligano Work Phone: Start: 09-05-2019 Assay of phosphorus [...] 09-05-2019 Radiologic exam chest single view Ari Milligano Work Phone: Start: 09-05-2019 End: 09-05-2019 Ecg routine ecg w/least 12 lds w/i&r Ari Milligano Work Phone: H/O: artificial joint History of [...] 02-19-2030 Screening for malignant neoplasm of colon [facility] Start: 01-15-2030 Lipid panel Lipid Panel [facility] Start: 09-15-2029 Lipid panel Lipid Panel [facility] Start: 02-20-2028 Lipid panel Lipid Panel [facility] Start: 12-08-2027 Lipid panel Lipid Panel [facility] Start: 08-05-2026 Lipid panel Lipid Panel [facility] Start: 02-27-2026 End: 02-27-2026 Patient encounter procedure 02/27/2026 3:15 PM EDT Office Visit [facility] [place] [address] [place] [phone] Dominguez Ortega MD [address] [facility] [address] [place] [address] [facility] [place] Start: 02-07-2026 Echocardiography Echocardiogram [facility] Start: 01-15-2026 Creatinine measurement Creatinine Level [facility] Start: 01-15-2026 Potassium measurement Potassium Level [facility] Start: 01-15-2026 Thyroid stimulating hormone measurement TSH Level [facility] Start: 09-15-2025 Creatinine measurement Creatinine Level [facility] Start: 09-15-2025 Potassium measurement Potassium Level [facility] Start: 09-11-2025 Thyroid stimulating hormone measurement TSH Level [facility] Start: 08-24-2025 Echocardiography Echocardiogram [facility] Start: 07-05-2025 End: 07-05-2025 Patient encounter procedure 07/05/2025 11:00 AM EST Office Visit [facility] [place] [address] [place] [phone] [place], DANIELLE - RIA [address] [address] [facility] [place] Start: 06-20-2025 Creatinine measurement Creatinine Level [facility] Start: 06-20-2025 Potassium measurement Potassium Level [facility] Start: 06-20-2025 Thyroid stimulating hormone measurement TSH Level [facility] Start: 05-12-2025 Medicare Annual Wellness (AWV) Medicare Annual Wellness (AWV) [facility] Start: 04-02-2025 ambulatory Ambulatory Facility:[facility] Start: 02-16-2025 End: 01-16-2026 Basic metabolic 1998 panel - Serum or Plasma Basic metabolic panel Lab Routine WATTS (dyspnea on exertion) Primary hypertension Expected: 02/16/2025 (Approximate), Expires: 01/16/2026 [facility] Work Phone: Comment on above: Expected: 02/16/2025 (Approximate), Expi res: 01/16/2026 Start: 02-07-2025 End: 02-07-2025 Patient encounter procedure [facility] Start: 02-07-2025 End: 10-10-2026 US Heart Transthoracic Transthoracic echocardiogram (TTE) complete with contrast, bubble, strain, and 3D PRN CV Echocardiography Routine Cardiomyopathy, ischemic Expected: 02/07/2025 (Approximate), Expires: 10/10/2026 [facility] Work Phone: Comment on above: Expected: 02/07/2025 (Approximate), Expi res: 10/10/2026 Start: 01-22-2025 COVID-19 Vaccine ( season) COVID-19 Vaccine ( season) [facility] Start: 01-22-2025 Influenza vaccination [facility] Start: 01-10-2025 Creatinine measurement Creatinine Level [facility] Start: 01-10-2025 Potassium measurement Potassium Level [facility] Start: 12-28-2024 End: 12-28-2024 Patient encounter procedure 12/28/2024 11:00 AM EDT Office Visit [facility] [address] [place] [phone] [place], RENT AND HOUSING INVESTIGATOR - CONTROL SYSTEM MANAGER 95 [facility] [address] [place] [address] [facility] Start: 11-30-2024 Thyroid stimulating hormone measurement TSH Level [facility] Start: 11-15-2024 [facility] Start: 10-24-2024 End: 10-24-2024 Patient encounter procedure 10/24/2024 1:00 PM EDT Office Visit [address] [place] [phone] [place], RENT AND HOUSING INVESTIGATOR - CONTROL SYSTEM MANAGER [address] [place] [address] [facility] Start: 09-28-2024 End: 09-28-2024 Patient encounter procedure 09/28/2024 11:30 AM EDT Office Visit [facility] [place] [address] [place] [phone] [place], RENT AND HOUSING INVESTIGATOR - CONTROL SYSTEM MANAGER 95 [facility] [address] [place] [address] [facility] [place] Start: 09-14-2024 End: 09-14-2024 Admission to same day surgery center 09/14/2024 11:00 AM EDT - 09/14/2024 12:00 PM EDT Surgery [facility] [address] [place] [phone] Dominguez Ortega MD [address] [facility] [address] [place] [address] Left heart cath / coronary angiography [facility] Comment on above: Left heart cath / coronary angiography Start: 09-14-2024 Subsequent hospital visit by physician [facility] Comment on above: Unstable angina (CMS/HCC) (HCC) Start: 09-07-2024 End: 09-07-2025 Basic metabolic 1998 panel - Serum or Plasma Basic metabolic panel Lab Routine Unstable angina (CMS/HCC) (HCC) Expected: 09/07/2024 (Approximate), Expires: 09/07/2025 [facility] Work Phone: Comment on above: Expected: 09/07/2024 (Approximate), Expi res: 09/07/2025 Start: 09-07-2024 End: 09-07-2025 CBC W Auto Differential panel - Blood CBC auto differential Lab Routine Unstable angina (CMS/HCC) (HCC) Expected: 09/07/2024 (Approximate), Expires: 09/07/2025 [facility] Comment on above: Expected: 09/07/2024 (Approximate), Expi res: 09/07/2025 Start: 08-24-2024 End: 08-24-2024 Patient encounter procedure [facility] [address] Non-Invasive Cardiology Start: 08-10-2024 End: 08-10-2024 Patient encounter procedure 08/10/2024 3:00 PM EDT Appointment [facility] [address] Non-Invasive Cardiology [address] [place] [address] [place] APRN - CONTROL SYSTEM MANAGER [address] [place] [address] [place] [address] [facility] [address] Non-Invasive Cardiology Start: 07-20-2024 End: 07-20-2026 Cardiac holter monitor (3-7 days) Cardiac holter monitor (3-7 days) CV Cardiac Services Routine Palpitations PAF (paroxysmal atrial fibrillation) (HCC) Expected: 07/20/2024, Expires: 07/20/2026 [employer] Work Phone: Comment on above: Expected: 07/20/2024, Expires: Start: 07-20-2024 End: 07-20-2024 Patient encounter procedure 07/20/2024 2:00 PM EST [facility] [address] [place] [address] [place] RENT AND HOUSING INVESTIGATOR - CONTROL SYSTEM MANAGER [address] [place] [address] [place] [address] [facility] [place] Start: 07-13-2024 End: 07-13-2024 Patient encounter procedure 07/13/2024 1:30 PM EST Office Visit [facility] [place] [address] [place] [address] [place] RENT AND HOUSING INVESTIGATOR - CONTROL SYSTEM MANAGER [address] [place] [address] [place] [address] [facility] [place] Start: 07-06-2024 End: 07-06-2026 US Heart Transthoracic Transthoracic echocardiogram (TTE) complete with contrast, bubble, strain, and 3D PRN CV Echocardiography Routine CAD in [place] artery PAF (paroxysmal atrial fibrillation) (HCC) Essential hypertension Abnormal EKG Expected: 07/06/2024 (Approximate), Expires: 07/06/2026 [employer] Work Phone: Comment on above: Expected: 07/06/2024 (Approximate), Expi res: 07/06/2026 Start: 04-09-2024 Creatinine measurement Creatinine Level [facility] Start: 04-09-2024 Potassium measurement Potassium Level [facility] Start: 03-09-2024 End: 03-09-2025 CBC panel - Blood by Automated count CBC Lab Routine Paroxysmal atrial fibrillation (HCC) Coronary artery disease of [place] artery of [place] heart with stable angina pectoris (HCC) Expected: 03/09/2024 (Approximate), Expires: 03/09/2025 [facility] Work Phone: Comment on above: Expected: 03/09/2024 (Approximate), Expi res: 03/09/2025 Start: 02-20-2024 Creatinine measurement Creatinine Level [facility] Start: 02-20-2024 Potassium measurement Potassium Level [facility] Start: 02-01-2024 End: 02-01-2024 Patient encounter procedure 02/01/2024 2:15 PM EDT Office Visit [facility] [employer] [facility] Cardiology [address] [place] [address] Dominguez Ortega MD [address] [address] [facility] Cardiology Start: 01-30-2024 Creatinine measurement Creatinine Level [facility] Start: 01-30-2024 Potassium measurement Potassium Level [facility] Start: 01-23-2024 COVID-19 Vaccine ( season) COVID-19 Vaccine ( season) [facility] Start: 01-23-2024 COVID-19 Vaccine ( season) COVID-19 Vaccine ( season) [facility] Start: 01-23-2024 Influenza vaccination [facility] Start: 12-09-2023 Creatinine measurement Creatinine Level [facility] Start: 12-09-2023 Potassium measurement Potassium Level [facility] Start: 12-08-2023 Creatinine measurement Creatinine Level [facility] Start: 12-08-2023 Potassium measurement Potassium Level [facility] Start: 12-04-2023 Creatinine measurement Creatinine Level [facility] Start: 12-04-2023 Potassium measurement Potassium Level [facility] Start: 11-19-2023 Echocardiography Echocardiogram [facility] Start: 10-30-2023 Creatinine measurement Creatinine Level [facility] Start: 10-30-2023 Potassium measurement Potassium Level [facility] Start: 10-30-2023 Thyroid stimulating hormone measurement TSH Level [facility] Start: 07-29-2023 End: 07-29-2023 Patient encounter procedure 07/29/2023 11:00 AM EST Office Visit [facility] Cardiology [address] [place] [address] [place], RENT AND HOUSING INVESTIGATOR - CONTROL SYSTEM MANAGER [address] [facility] [address] [place] [address] [facility]iology Start: 07-09-2023 Patient discharge [facility] Start: 06-30-2023 End: 06-30-2023 Patient encounter procedure [facility] Start: 06-17-2023 End: 06-17-2023 Patient encounter procedure [facility] Card[facility] Start: 05-20-2023 Egd transoral biopsy single/multiple EGD BIOPSY SINGLE/MULTIPLE [facility] Start: 05-20-2023 Patient discharge [facility] Start: 05-10-2023 End: 05-10-2023 Patient encounter procedure 05/10/2023 1:30 PM EST Office Visit [facility] [address] [place] [phone] Tree Gonzales MD [address] [place] [address] [facility] Start: 05-10-2023 End: 05-10-2023 Patient encounter procedure 05/10/2023 10:30 AM EST Office Visit [facility] [address] [place] [phone] Tree Gonzales MD [address] [place] [address] [facility] Start: 04-22-2023 End: 04-08-2024 Basic metabolic 1998 panel - Serum or Plasma Basic metabolic panel Lab Routine CAD in [place] artery PAF (paroxysmal atrial fibrillation) (HCC) Expected: 04/22/2023 (Approximate), Expires: 04/08/2024 [facility] Work Phone: Comment on above: Expected: 04/22/2023 (Approximate), Expi res: 04/08/2024 Start: 04-08-2023 End: 04-08-2023 Patient encounter procedure 04/08/2023 10:00 AM EST Office Visit [facility] Cardiology [address] [place] [address] [place], RENT AND HOUSING INVESTIGATOR - CONTROL SYSTEM MANAGER [address] [place], [place] [phone] [facility] Start: 04-01-2023 End: 03-18-2024 Basic metabolic 1998 panel - Serum or Plasma Basic metabolic panel Lab Routine CAD in [place] artery Essential hypertension, benign Expected: 04/01/2023 (Approximate), Expires: 03/18/2024 [facility] Work Phone: Comment on above: Expected: 04/01/2023 (Approximate), Expi res: 03/18/2024 Start: 03-29-2023 End: 03-29-2023 Patient encounter procedure 03/29/2023 3:45 PM EST Office Visit [facility] Cardiology [address] [place] [phone] Zoie Gonzales MD [address] [place] [address] [facility] Start: 03-29-2023 End: 03-29-2023 Patient encounter procedure 03/29/2023 1:15 PM EST Office Visit [facility] [address] [place] [address] Chris Boyce MD [address] [place], [place] [phone] [facility] Start: 03-18-2023 End: 03-18-2023 Patient encounter procedure 03/18/2023 11:00 AM EDT Office Visit [facility] Cardiology [address] [place] [phone] [place], RENT AND HOUSING INVESTIGATOR - CONTROL SYSTEM MANAGER [address] [place] [address] [facility] Cardiology Start: 03-04-2023 End: 03-04-2023 Patient encounter procedure 03/04/2023 11:35 AM EDT Office Visit [facility] [address] [place] [phone] Chris Boyce MD [address] [place], [place] [phone] [facility] Start: 03-01-2023 End: 03-01-2023 Admission to same day surgery center 03/01/2023 8:00 AM EDT - 03/01/2023 9:00 AM EDT Surgery [facility] [address] [place] [phone] Zoie Gonzales MD [address] [place] [address] Coronary angiography [facility] Comment on above: Coronary angiography Start: 03-01-2023 Subsequent hospital visit by physician 03/01/2023 8:00 AM EDT Hospital Encounter [facility] [address] [place] [address] Zoie Gonzales MD [address] [place] [address] Atherosclerotic heart disease of [place] coronary artery with other forms of angina pectoris (HCC) [facility] Comment on above: Atherosclerotic heart disease of [place] coronary artery with other forms of angina pectoris (HCC) Start: 02-24-2023 End: 02-24-2023 Patient encounter procedure 02/24/2023 8:15 AM EDT Office Visit [facility] [address] [place] [phone] Chris Boyce MD [address] [place], [place] [phone] [facility] Start: 02-24-2023 End: 02-24-2023 Telemedicine consultation with patient 02/24/2023 8:15 AM EDT Telemedicine [facility] [address] [place] [phone] Chris Boyce MD [address] [place], [place] [phone] Arrived [facility] Comment on above: Arrived Start: 02-22-2023 End: 02-22-2023 Patient encounter procedure 02/22/2023 1:30 PM EDT Office Visit [facility] Cardiology [address] [place] [phone] Zoie Gonzales MD [address] [place], [place] [phone] [facility]iology Start: 02-02-2023 End: 02-03-2024 Comprehensive metabolic 1998 panel - Serum or Plasma Comprehensive metabolic panel Lab Routine CAD in [place] artery Expected: 02/02/2023 (Approximate), Expires: 02/03/2024 [facility] Comment on above: Expected: 02/02/2023 (Approximate), Expi res: 02/03/2024 Start: 02-02-2023 End: 02-03-2024 Lipid 1996 panel - Serum or Plasma Lipid panel Lab Routine CAD in [place] artery Other hyperlipidemia Expected: 02/02/2023 (Approximate), Expires: 02/03/2024 [facility] Work Phone: Comment on above: Expected: 02/02/2023 (Approximate), Expi res: 02/03/2024 Start: 02-02-2023 End: 02-02-2023 Patient encounter procedure 02/02/2023 8:30 AM EDT Office Visit [facility] Cardiology [address] [place] [address] [place] RENT AND HOUSING INVESTIGATOR - CONTROL SYSTEM MANAGER [address] [address] [facility] Start: 01-26-2023 End: 01-27-2024 Basic metabolic 1998 panel - Serum or Plasma Basic metabolic panel Lab STAT WATTS (dyspnea on exertion) Expected: 01/26/2023 (Approximate), Expires: 01/27/2024 [facility] Comment on above: Expected: 01/26/2023 (Approximate), Expi res: 01/27/2024 Start: 01-26-2023 End: 01-27-2024 CBC W Auto Differential panel - Blood CBC auto differential Lab STAT WATTS (dyspnea on exertion) Expected: 01/26/2023 (Approximate), Expires: 01/27/2024 [facility] Work Phone: Comment on above: Expected: 01/26/2023 (Approximate), Expi res: 01/27/2024 Start: 01-22-2023 COVID-19 Vaccine ( season) COVID-19 Vaccine ( season) [facility] Start: 01-22-2023 Influenza vaccination [facility] Start: 01-04-2023 End: 01-04-2023 Patient encounter procedure [facility] Start: 12-24-2022 End: 12-24-2022 Patient encounter procedure 12/24/2022 2:30 PM EDT Office Visit [facility] Cardiology [address] [place] [address] [place] RENT AND HOUSING INVESTIGATOR - CONTROL SYSTEM MANAGER [address] [address] [facility] Start: 12-15-2022 End: 12-09-2023 Basic metabolic 1998 panel - Serum or Plasma Basic metabolic panel Lab Routine Renal insufficiency Expected: 12/15/2022 (Approximate), Expires: 12/09/2023 [facility] Work Phone: Comment on above: Expected: 12/15/2022 (Approximate), Expi res: 12/09/2023 Start: 12-06-2022 Admission procedure [facility] Start: 12-05-2022 [facility] Start: 12-03-2022 End: 12-03-2022 Patient encounter procedure 12/03/2022 2:30 PM EDT Office Visit [facility] Cardiology [address] [place] [phone] Zioe Gonzales MD [address] [place], [place] [id number] [facility] Start: 11-20-2022 End: 11-20-2022 Patient encounter procedure 11/20/2022 8:30 PM EDT Office Visit [facility] [address] [place] [phone] Chris Boyce MD [address] [place] [address] [facility] Start: 11-18-2022 End: 11-18-2022 Patient encounter procedure 11/18/2022 11:00 AM EDT Appointment [facility]-Invasive Cardiology [address] [place] [phone] [facility] [address] [facility] Start: 11-11-2022 End: 11-12-2023 Polysomnography Polysom[facility]ography Sleep Center Routine HIPOLITO (obstructive sleep apnea) Expected: 11/11/2022 (Approximate), Expires: 11/12/2023 [facility] Work Phone: Comment on above: Expected: 11/11/2022 (Approximate), Expi res: 11/12/2023 Start: 10-31-2022 Thyroid stimulating hormone measurement TSH Level [facility] Start: 10-29-2022 End: 10-29-2022 Patient encounter procedure 10/29/2022 Office Visit Pulmonology Tree Gonzales MD [address] [place] [address] [facility] Pulmonary and Sleep Medicine Start: 10-12-2022 End: 10-12-2022 Patient encounter procedure 10/12/2022 Office Visit Cardiology Samra Gonzalez, RENT AND HOUSING INVESTIGATOR - CONTROL SYSTEM MANAGER [address] [place] [address] [facility] Cardiology Start: 10-01-2022 End: 10-02-2023 Basic metabolic 1997 panel - Serum or Plasma Basic metabolic panel Lab Routine WATTS (dyspnea on exertion) Localized edema Expected: 10/01/2022 (Approximate), Expires: 10/02/2023 [employer] Work Phone: Comment on above: Expected: 10/01/2022 (Approximate), Expi res: 10/02/2023 Start: 09-28-2022 End: 09-29-2023 Basic metabolic 1997 panel - Serum or Plasma Basic metabolic panel Lab Routine Localized edema Expected: 09/28/2022 (Approximate), Expires: 09/29/2023 [employer] Work Phone: Comment on above: Expected: 09/28/2022 (Approximate), Expi res: 09/29/2023 Start: 09-28-2022 End: 09-29-2023 CBC W Auto Differential panel - Blood CBC auto differential Lab Routine Localized edema Expected: 09/28/2022 (Approximate), Expires: 09/29/2023 [employer] Comment on above: Expected: 09/28/2022 (Approximate), Expi res: 09/29/2023 Start: 09-28-2022 End: 09-29-2023 Fibrin D-dimer FEU [Mass/volume] in Platelet poor plasma D-dimer, quantitative Lab Routine Localized edema WATTS (dyspnea on exertion) Expected: 09/28/2022 (Approximate), Expires: 09/29/2023 [employer] Comment on above: Expected: 09/28/2022 (Approximate), Expi res: 09/29/2023 Start: 09-28-2022 End: 09-29-2023 Hepatic function 2000 panel - Serum or Plasma Hepatic function panel Lab Routine PAF (paroxysmal atrial fibrillation) (CMS/HCC) (HCC) Localized edema Expected: 09/28/2022 (Approximate), Expires: 09/29/2023 [facility] [employer] Comment on above: Expected: 09/28/2022 (Approximate), Expi res: 09/29/2023 Start: 09-28-2022 End: 09-29-2023 Natriuretic peptide B [Mass/volume] in Blood NT PRO BNP Lab Routine Coronary artery disease involving [place] coronary artery of [place] heart without angina pectoris PAF (paroxysmal atrial fibrillation) (CMS/HCC) (HCC) Primary hypertension Chronic obstructive pulmonary disease, unspecified COPD type (HCC) Localized edema WATTS (dyspnea on exertion) Shortness of breath on exertion Expected: 09/28/2022 (Approximate), Expires: 09/29/2023 [employer] Comment on above: Expected: 09/28/2022 (Approximate), Expi res: 09/29/2023 Start: 09-28-2022 End: 09-28-2024 US Heart Transthoracic Transthoracic echocardiogram (TTE) complete with contrast, bubble, strain, and 3D PRN CV Echocardiography Routine Localized edema Expected: 09/28/2022 (Approximate), Expires: 09/28/2024 [facility] [employer] Comment on above: Expected: 09/28/2022 (Approximate), Expi res: 09/28/2024 Start: 08-22-2022 Blood chemistry [facility] Start: 08-21-2022 Patient discharge [facility] Start: 08-20-2022 Incentive spirometry [facility] Start: 08-20-2022 [facility] Start: 08-20-2022 Continuous pulse oximetry [facility] Start: 08-20-2022 Anes arthrs humeral h/n strnclav & shoulder nos ANESTH SURGERY OF SHOULDER [facility] Start: 08-20-2022 Arthroscopy shoulder distal claviculectomy YOLANDE ARTHRS SRG DSTL CLAVICLC [facility] Start: 08-20-2022 Arthroscopy shoulder rotator cuff repair YOLANDE ARTHRS SRG [id number] CUF RPR [facility] Start: 08-20-2022 Arthroscopy shoulder w/coracoacrm ligmnt release YOLANDE ARTHRS SRG DECOMPRESSION [facility] Start: 08-20-2022 Following clinical pathway protocol [facility] Start: 08-20-2022 Application of intermittent pneumatic compression device [facility] Start: 08-20-2022 Consultation [facility] Start: 08-20-2022 Admission procedure [facility] Start: 08-20-2022 Catheterization of vein [facility] Start: 08-20-2022 Deep breathing and coughing exercises [facility] Start: 08-20-2022 Following clinical pathway protocol [facility] Start: 08-20-2022 Introduction of urinary catheter [facility] Start: 08-20-2022 Patient education [facility] Start: 08-20-2022 Taking patient vital signs [facility] Start: 08-20-2022 Vital signs measurements [facility] Start: 08-20-2022 [facility] Start: 08-20-2022 Application of ice collar, cap or bag [facility] Start: 08-20-2022 Assessment of risk of venous thromboembolism [facility] Start: 08-20-2022 Provision of activity privileges [facility] Start: 08-20-2022 Verification routine [facility] Start: 08-20-2022 Medication education [facility] Start: 08-01-2022 Lipid panel [facility]ids [facility] Start: 03-18-2022 Creatinine measurement Creatinine monitoring [facility] Start: 03-18-2022 Potassium monitoring Potassium monitoring [facility] Start: 01-27-2022 End: 01-27-2022 Patient encounter procedure 01/27/2022 Office Visit Cardiology Zoie Gonzales MD [address] [place] [address] [facility] Start: 01-22-2022 Influenza vaccination [facility] Start: 01-12-2022 Colonoscopy w/biopsy single/multiple COLONOSCOPY AND BIOPSY [facility] Work Phone: Start: 01-12-2022 Colsc flx w/rmvl of tumor polyp lesion snare tq COLONOSCOPY W/LESION REMOVAL [facility] Work Phone: Start: 01-12-2022 Egd insert guide wire dilator passage esophagus EGD GUIDE WIRE INSERTION [facility] Work Phone: Start: 01-12-2022 Egd removal tumor polyp/other lesion snare tech EGD REMOVE LESION SNARE [facility] Work Phone: Start: 01-12-2022 Egd transoral biopsy single/multiple EGD BIOPSY SINGLE/MULTIPLE [facility] Work Phone: Start: 01-12-2022 Patient discharge [facility] Work Phone: Start: 01-01-2022 End: 01-01-2022 Patient encounter procedure 01/01/2022 Office Visit Pulmonology Tree Gonzales MD [address] [place] [address] [facility] Start: 12-30-2021 End: 12-30-2021 Patient encounter procedure 12/30/2021 Appointment Pulmonary Function Testing Tree Gonzales MD [address] [place] [address] [facility] Pulmonary Function Lab Start: 10-02-2021 End: 10-02-2021 Patient encounter procedure 10/02/2021 Office Visit Pulmonology Tree Gonzales MD [address] [place] [address] [facility] Start: 09-09-2021 Oxygen therapy [facility] Work Phone: Start: 09-09-2021 [facility] Work Phone: Start: 08-07-2021 End: 08-07-2021 Patient encounter procedure 08/07/2021 Office Visit Cardiology [place], RENT AND HOUSING INVESTIGATOR - CONTROL SYSTEM MANAGER [address] [place] [address] [facility] Start: 07-25-2021 End: 07-25-2021 Patient encounter procedure 07/25/2021 Office Visit Weight Management Reba Reed MD [address] [place] [address] [facility] Start: 07-17-2021 Thyroid stimulating hormone measurement TSH testing [facility] Start: 06-27-2021 End: 06-27-2021 Patient encounter procedure 06/27/2021 Office Visit Weight Management Reba Reed MD [address] [place] [address] [facility] Start: 04-13-2021 DTaP/Tdap/Td vaccine (2 - Td or Tdap) DTaP/Tdap/Td vaccine (2 - Td or Tdap) [facility] Start: 04-13-2021 DTaP/Tdap/Td vaccine (2 - Td) DTaP/Tdap/Td vaccine (2 - Td) [place], [place] Start: 04-13-2021 DTaP/Tdap/Td Vaccines (2 - Td or Tdap) DTaP/Tdap/Td Vaccines (2 - Td or Tdap) [facility] Start: 03-25-2021 End: 03-17-2022 Basic metabolic 2000 panel - Serum or Plasma Basic Metabolic Panel Lab Routine CAD in [place] artery Expected: 03/25/2021, Expires: 03/17/2022 [facility] Work Phone: Comment on above: Expected: 03/25/2021, Expires: Start: 03-24-2021 End: 03-24-2021 Patient encounter procedure 03/24/2021 Office Visit Cardiology [place], RENT AND HOUSING INVESTIGATOR - CONTROL SYSTEM MANAGER [address] [place] [address] [phone] [facility] Start: 03-20-2021 End: 03-20-2021 ambulatory 03/20/2021 Virtual Visit Pulmonology Quan Green, RENT AND HOUSING INVESTIGATOR - CONTROL SYSTEM MANAGER [address] [place] [address] [phone] [facility] Start: 03-17-2021 Annual Wellness Visit (AWV) Annual Wellness Visit (AWV) [facility] Start: 03-17-2021 End: 03-17-2021 Patient encounter procedure 03/17/2021 Appointment IP Unit Zoie Gonzales MD [address] [place] [address] [phone] [facility] Start: 01-22-2021 Influenza vaccination [facility] Start: 11-07-2020 End: 11-07-2020 Patient encounter procedure 11/07/2020 Office Visit Pulmonology Tree Gonzales MD [address] [place] [address] [phone] [facility] Start: 10-27-2020 Pneumococcal 65+ years Vaccine (1 of 1 - PPSV23) Pneumococcal 65+ years Vaccine (1 of 1 - PPSV23) [facility] Start: 10-05-2020 Creatinine measurement Creatinine monitoring [facility] Work Phone: Start: 10-05-2020 Potassium monitoring Potassium monitoring [facility] Work Phone: Start: 09-08-2020 Creatinine measurement Creatinine monitoring [facility], [place] Start: 09-08-2020 Creatinine monitoring Creatinine monitoring [place], [place] Start: 09-08-2020 Potassium monitoring Potassium monitoring [place], [place] Start: 09-05-2020 TSH Qn TSH testing [place], [place] Start: 09-05-2020 TSH testing TSH testing [place], [place] Start: 06-06-2020 Lipid panel Lipid screen [facility] Start: 06-06-2020 Lipid screen Lipid screen [place], [place] Start: 01-23-2020 Influenza vaccination Flu vaccine (Season Ended) [place], [place] Start: 09-21-2019 End: 09-21-2019 Virtual Visit 09/21/2019 Virtual Visit Cardiology [place], RENT AND HOUSING INVESTIGATOR - CONTROL SYSTEM MANAGER [address] [place] [address] [phone] [facility] Start: 09-14-2019 End: 09-14-2019 Virtual Visit [facility] Start: 2015 RSV Immunization aged 60 or older (1 - 1-dose 60+ series) RSV Immunization aged 60 or older (1 - 1-dose 60+ series) [facility] Start: 2015 RSV Immunization for Adults (1 - Risk 60-74 years 1-dose series) RSV Immunization for Adults (1 - Risk 60-74 years 1-dose series) [facility] Start: 10-27-2005 Colon cancer screen colonoscopy Colon cancer screen colonoscopy [place], [place] Start: 10-27-2005 Screening for malignant neoplasm of colon Colon cancer screen colonoscopy [place], [place] Start: 10-27-2005 Shingles Vaccine (1 of 2) Shingles Vaccine (1 of 2) [facility] Start: 10-27-2005 Zoster Vaccines (1 of 2) Zoster Vaccines (1 of 2) [facility] Start: 10-27-2000 Screening for malignant neoplasm of colon [facility] Start: 1995 Diabetes screen Diabetes screen [place], [place] Start: 1995 Prostate specific antigen measurement Prostate Specific Antigen (PSA) Screening or Monitoring [facility] Start: 10-27-1990 Diabetes screen Diabetes screen [facility] Start: 10-27-1974 Pneumococcal Vaccine: 50+ Years (1 of 2 - PCV) Pneumococcal Vaccine: 50+ Years (1 of 2 - PCV) [facility] Start: 10-27-1973 Diabetes mellitus screening Diabetes Screening [facility] Start: 10-27-1973 Hepatitis C screening [facility] Start: 10-27-1970 HIV screen HIV screen [place], [place] Start: 10-27-1970 HIV screening HIV screen [facility] Start: 1967 COVID-19 Vaccine (1) COVID-19 Vaccine (1) [facility] Start: 1967 Depression Screen Depression Screen [facility] Start: 1967 Depression Screening Depression Screening [facility] Start: 10-27-1961 Pneumococcal 0-64 years Vaccine (1 of 1 - PPSV23) Pneumococcal 0-64 years Vaccine (1 of 1 - PPSV23) [place] Start: 10-27-1961 Pneumococcal 0-64 years Vaccine (1 of 2 - PPSV23) Pneumococcal 0-64 years Vaccine (1 of 2 - PPSV23) [facility] Work Phone: Start: 10-27-1961 Pneumococcal 65+ years Vaccine (1 - PCV) Pneumococcal 65+ years Vaccine (1 - PCV) [facility] Start: 10-27-1961 Pneumococcal Vaccine: 65+ Years (1 - PCV) Pneumococcal Vaccine: 65+ Years (1 - PCV) [facility] Start: 10-27-1961 Pneumococcal Vaccine: 65+ Years (1 of 2 - PCV) Pneumococcal Vaccine: 65+ Years (1 of 2 - PCV) [facility] Start: 10-27-1960 COVID-19 Vaccine (1) COVID-19 Vaccine (1) [facility] Start: 04-28-1956 COVID-19 Vaccine (#1) COVID-19 Vaccine (#1) [facility] Start: 1955 Annual Wellness Visit (AWV) Annual Wellness Visit (AWV) [facility] Start: 1955 Echocardiography Echocardiogram [facility] Start: 1955 Hepatitis B Vaccines (1 of 3 - 3-dose series) Hepatitis B Vaccines (1 of 3 - 3-dose series) [facility] Start: 1955 Hepatitis C screen Hepatitis C screen [place], [place] Start: 1955 Hepatitis C screening Hepatitis C screen [facility] Start: 1955 Medicare Annual Wellness (AWV) Medicare Annual Wellness (AWV) [facility] Start: 1955 Screening for malignant neoplasm of colon [facility] Anion gap measurement [facility] Bilirubin.direct [Mass/volume] in Serum or Plasma [facility] Work Phone: BIPAP BIPAP Respirator y Care Routine Every 4hr until discontinued starting 09/07/2019 [place], [place] Comment on above: Every 4hr until discontinued starting BUN/Creatinine ratio [facility] Calcium [Mass/volume ] in Serum or Plasma [facility] Carbon dioxide, tota l [Moles/volume] in Serum or Plasma [facility] Cardiac catheterizat ion study Cardiac procedure CV Cardiac Cath Routine Unstable angina (CMS/HCC) (HCC) 09/14/2024 2:02 PM EDT [facility] Work Phone: End: 08-24-2024 Cardiac holter monitor (3-7 days) [facility] Work Phone: Comment on above: Once for 1 Occurrences starting 08/25/19 until 08/24/2024 End: 12-01-2021 Catheterization and angiography procedure details panel Diagnostic Cardiac [employer] Att[employer] Procedure Cardiac Cath Routine One Time for 1 Occurrences starting 12/01/2021 until 12/01/2021 [employer] Work Phone: Comment on above: One Time for 1 Occurrences starting 11/21 until 12/01/2021 End: 09-16-2019 CBC CBC Lab Routine Tomorrow AM for 1 Occurrences starting 09/16/2019 until 09/16/2019 [facility], [place] Comment on above: Tomorrow AM for 1 Occurrences starting 0 09/16/2019 until 09/16/2019 CBC panel - Blood by Automated count CBC Lab Routine Daily until discontinued starting 03/18/2021, 1 completed [employer] Work Phone: Comment on above: Daily until discontinued starting 2020, 1 completed CBC W Auto Different ial panel - Blood [facility] Work Phone: Celiac disease screen [facility] Work Phone: Chloride [Moles/volu me] in Serum or Plasma [facility] Clostridioides diffi cile DNA [Presence] in Unspecified specimen by HARIKA with probe detection [facility] Work Phone: Comprehensive Metabo lic Panel w/ Reflex to MG Comprehensive Metabolic Panel w/ Reflex to MG Lab Routine Daily until discontinued starting 03/18/2021, 1 completed [employer] Work Phone: Comment on above: Daily until discontinued starting 2020, 1 completed Continuous pulse oximetry Pulse oximetry, continuous Respiratory Care Routine Every 4hr until discontinued starting 03/17/2021 [employer] Work Phone: Comment on above: Every 4hr until discontinued starting Creatinine [Moles/vo lume] in Serum or Plasma [facility] End: 10-22-2020 CT Chest WO Contrast CT Chest WO Contrast Imaging Routine Pneumonia due to COVID-19 virus ILD (interstitial lung disease) (HCC) Pneumoconiosis (HCC) 1 Occurrences starting 10/22/2020 until 10/22/2020 [employer] Work Phone: Comment on above: 1 Occurrences starting 10/22/2020 until 10/22/2020 CT Chest WO Contrast CT Chest WO Contrast Imaging Routine Pneumonia due to COVID-19 virus ILD (interstitial lung disease) (HCC) Pneumoconiosis (HCC) 10/22/2020 8:43 AM EDT [employer] Work Phone: ECG 12 lead - CLINIC PERFORMED ECG 12 lead - CLINIC PERFORMED CV ECG Routine Primary hypertension 02/02/2023 8:37 AM EDT [employer] Work Phone: ECG 12 lead - CLINIC PERFORMED ECG 12 lead - CLINIC PERFORMED CV ECG Routine CAD in [place] artery 07/06/2022 2:29 PM EST [employer] Work Phone: ECG 12 lead - CLINIC PERFORMED ECG 12 lead - CLINIC PERFORMED CV ECG Routine CAD in [place] artery 07/06/2024 2:08 PM EST [employer] Work Phone: ECG 12 lead - CLINIC PERFORMED ECG 12 lead - CLINIC PERFORMED CV ECG Routine CAD in [place] artery 02/07/2025 3:18 PM EDT [employer] Work Phone: EKG 12 lead [employer] Comment on above: As Needed until discontinued starting Daily until disconti nued starting 03/18/2021, 1 completed End: 09-16-2019 EKG 12 lead EKG 12 lead ECG Routine Tomorrow AM for 1 Occurrences starting 09/16/2019 until 09/16/2019 [employer] Comment on above: Tomorrow AM for 1 Occurrences starting 0 09/16/2019 until 09/16/2019 Ferritin [Mass/volum e] in Serum or Plasma [facility] Work Phone: Full PFT Study With Bronchodilator Full PFT Study With Bronchodilator PFT Routine Pneumonia due to COVID-19 virus Interstitial lung disease (HCC) Pneumoconiosis (HCC) 10/22/2020 8:53 AM EDT [employer] Work Phone: Gastrointestinal pathogens panel - Stool by HARIKA with probe detection [facility] Work Phone: Glucose [Mass/volume ] in Serum or Plasma [facility] Initiate [facility]xygen Ther [facility]y [facility] Comment on above: Daily until discontinued starting 2019 Daily until disconti nued starting 09/08/2019 Daily until disconti nued starting 09/15/2019 Iron and Iron bindin g capacity panel - Serum or Plasma [facility] Work Phone: Measurement of renal function [facility] End: 09-07-2019 Nasal Cannula Oxygen Nasal Cannula Oxygen Respiratory Care Routine As Needed until discontinued starting 09/07/2019 [facility] [place] Comment on above: As Needed until discontinued starting Ova and parasites identified in Unspecified specimen by Light microscopy [facility] Work Phone: Oxygen therapy [Mini mum Data Set] Initiate Oxygen Therapy Protocol Respiratory Care Routine Daily until discontinued starting 03/17/2021 [employer] Work Phone: Comment on above: Daily until discontinued starting 2020 Oxygen therapy [Mini mum Data Set] Initiate Oxygen Therapy Protocol Respiratory Care Routine As Needed until discontinued starting 12/01/2021 [employer] Work Phone: Comment on above: As Needed until discontinued starting Oxygen therapy [Mini mum Data Set] Initiate Oxygen Therapy Protocol Respiratory Care Routine Daily until discontinued starting 12/01/2021 [employer] Work Phone: Comment on above: Daily until discontinued starting 2021 Patient Education [facility] Work Phone: Patient referral [facility] Work Phone: Potassium [Moles/vol ume] in Serum or Plasma [facility] Procedure [facility] Pulse oximetry, continuous Pulse oximetry, continuous Respiratory Care Routine Every 4hr until discontinued starting 09/07/2019 [facility] [place] Comment on above: Every 4hr until discontinued starting Radionuclide gastric emptying study [facility] Sodium [Moles/volume ] in Serum or Plasma [facility] End: 09-15-2019 Troponin I.cardiac [Mass/Vol] Troponin Lab Timed Now Then Every 3hr for 2 Occurrences starting 09/15/2019 until 09/15/2019, 1 completed [facility] [employer] [place] Comment on above: Now Then Every 3hr for 2 Occurrences sta rting 09/15/2019 until 09/15/2019, 1 completed Urea nitrogen [Mass/volume] in Serum or Plasma [facility] [place] Thyroid gland [facility] Payers Date Payer Category Payer Self-pay [id number] 2021 Medicare supplementa l policy (as second payer) MMO MEDICARE SUPPLEMENT [id number] 2021 Unknown [employer] [place] MEDICARE SUPPLEMENT [id number] 2021-Present [address] [place] [address] Supplement [id number] 2020 Medicare [id number] 2020 Medicare [id number] 2019 Unknown BCBS BCBS - [place] P PO xxxxxxxxxxxx 2019-Present [address] [place] [address] xxxxxxxxxxxx [id number] 2019 Unknown [id number]. [id number] 2015 Unknown [id number] [id number]. [id number] 2014 Unknown [facility] [id number] Unknown [id number] 2.16.840.1.007096.3.579. 2.462 Unknown [id number] 2.16.840.1.823211.3.579. 2.462 Unknown [id number] 2.16.840.1.815058.3.579. 2.462 Unknown [id number] 2.16.840.1.979214.3.579. 2.462 Unknown [id number] 2.16.840.1.959905.3.579. 2.462 Unknown [id number] 2.16.840.1.109044.3.579. 2.462 Unknown [id number] 2..840.1.554785.3.579. 2.462 Unknown [id number] 2.16.840.1.524838.3.579. 2.462 Unknown [id number] 2.16.840.1.781918.3.579. 2.462 Unknown [id number] 2.16.840.1.923651.3.579. 2.462 Unknown [id number] 2.16.840.1.060776.3.579. 2.462 Unknown [id number] 2.840.1.682029.3.579. 2.462 Unknown [id number] 2.16840.1.402971.3.579. 2.462 Unknown [id number] 2.16840.1.557684.3.579. 2.462 Unknown [id number] 2.16840.1.412419.3.579. 2.462 Unknown [id number] 2..840.1.581707.3.579. 2.462 Social History Date Type Detail Facility Start: 09-05-2019 End: 11-14-2024 Tobacco smoking status NHIS [facility] Start: 09-05-2019 End: 05-05-2021 Alcohol intake Current drinker of alcohol (finding) [facility] [place] Start: 02-27-2016 Alcohol Comment rare [facility] Start: 1955 Sex Assigned At Not on file M [place], [place] Exposure to SARS-CoV -2 (event) Unable to assess [facility] [place] Start: 05-26-2016 End: 09-19-2020 Tobacco use and exposure Never used [facility] Start: 11-21-2021 End: 02-02-2023 Exposure to SARS-CoV-2 (event) Not sure [facility] Start: 09-09-2021 End: 07-05-2023 Tobacco smoking status MIIS Unknown if ever smoked [facility] Start: 09-23-2020 None [facility] Start: 04-01-2020 Non-smoker [facility] Start: 1955 Sex Assigned At Male [facility] Start: 10-30-2021 End: 02-07-2025 Alcohol intake Ex-drinker (finding) [facility] [place] Translation Phone: Start: 11-11-2022 End: 02-07-2025 History of Social function [facility] Start: 11-11-2022 End: 02-07-2025 Tobacco use panel [facility] Within the last year , have you been afraid of your partner or ex-partner? No [facility] Start: 12-22-2021 End: 09-05-2024 Sex Male (finding) [facility] Medical Equipment Procedure Code Equipment Code Equipment Origin al Text Equipment Identifier Dates Total cholecystectomy with exploration of common bile duct CLIP,HEMCONCK REBECCA CHRISTIANSEN FDA Start: 10-30-2019 Total cholecystectomy with exploration of common bile duct CLIP,HEMLINDA CHRISTIANSEN FDA Start: 10-30-2019 Total cholecystectomy with exploration of common bile duct CLIP,HEMLINDA CHRISTIANSEN FDA Start: 10-30-2019 Total cholecystectomy with exploration of common bile duct CLIP,HEMOLOCK REBECCA CHRISTIANSEN FDA Start: 10-30-2019 Total cholecystectomy with [...] cholecystectomy with exploration of common bile duct CLIP,HEMCONCK REBECCA WECK FDA Start: 10-30-2019 Total cholecystectomy with exploration of common bile duct CLIP,HEMOLOAYE REBECCA WEAYE FDA Start: 10-30-2019 Total cholecystectomy with exploration of common bile duct CLIP,HEMOLOAYE FERNANDEZ WEAYE FDA Start: 10-30-2019 Total cholecystectomy with exploration of common bile duct CLIP,HEMOLOAYE REBECCA WEAYE FDA Start: 10-30-2019 Total cholecystectomy with exploration of common bile duct DRESSING,FIBRILLAR 1X2 1960 FDA Start: 10-30-2019 Total cholecystectomy with exploration of common bile duct CLIP,HEMCONAYE CHRISTIANSEN FDA Start: 10-30-2019 Total cholecystectomy with exploration of common bile duct CLIP,HEMCONAYE REBECCA ЕЛЕНА FDA Start: 10-30-2019 Total cholecystectomy with exploration of common bile duct CLIP,HEMCONAYE CHRISTIANSEN FDA Start: 10-30-2019 Total cholecystectomy with exploration of common bile duct CLIP,HEMOLOAYE FERNANDEZ WEAYE FDA Start: 10-30-2019 Total cholecystectomy with exploration of common bile duct DRESSING,FIBRILLAR 1X2 1960 FDA Start: 10-30-2019 Total cholecystectomy with exploration of common bile duct CLIP,HEMCONAYE REBECCA WEAYE FDA Start: 10-30-2019 Total cholecystectomy with [...] with exploration of common bile duct CLIP,HEMOLOAYE REBECCA ЕЛЕНА FDA Start: 10-30-2019 Total cholecystectomy with exploration of common bile duct CLIP,HEMLINDA FERNANDEZ WECK FDA Start: 10-30-2019 Total cholecystectomy with exploration of common bile duct CLIP,HEMOLOAYE REBECCA WECK FDA Start: 10-30-2019 Total cholecystectomy [...] cholecystectomy with exploration of common bile duct CLIP,HEMCONAYE CHRISTIANSEN FDA Start: 10-30-2019 Total cholecystectomy with [...] with exploration of common bile duct CLIP,HEMOLOAYE REBECCA WEAYE FDA Start: 10-30-2019 Total cholecystectomy with exploration of common bile duct CLIP,HEMCONAYE CHRISTIANSEN FDA Start: 10-30-2019 Total cholecystectomy with [...] cholecystectomy with exploration of common bile duct CLIP,HEMCONAYE CHRISTIANSEN FDA Start: 10-30-2019 Total cholecystectomy with exploration of common bile duct DRESSING,FIBRILLAR 1X2 1960 FDA Start: 10-30-2019 Total cholecystectomy with exploration of common bile duct CLIP,HEMCONAYE CHRISTIANSEN FDA Start: 10-30-2019 Total cholecystectomy with exploration of common bile duct CLIP,HEMOLOAYE CHRISTIANSEN FDA Start: 10-30-2019 Total cholecystectomy with exploration of common bile duct CLIP,HEMCONAYE CHRISTIANSEN FDA Start: 10-30-2019 Total cholecystectomy with exploration of common bile duct CLIP,HEMCONAYE REBECCA ЕЛЕНА FDA Start: 10-30-2019 Total cholecystectomy with exploration of common bile duct DRESSING,FIBRILLAR 1X2 1960 FDA Start: 10-30-2019 Total cholecystectomy with exploration of common bile duct CLIP,HEMOLOAYE REBECCA ЕЛЕНА FDA Start: 10-30-2019 Total cholecystectomy with exploration of common bile duct CLIP,HEMOLOAYE CHRISTIANSEN FDA Start: 10-30-2019 Total cholecystectomy with exploration of common bile duct CLIP,HEMOLOAYE FERNANDEZ WEAYE FDA Start: 10-30-2019 Total cholecystectomy with exploration of common bile duct CLIP,HEMOLOAYE REBECCA ЕЛЕНА FDA Start: 10-30-2019 Total cholecystectomy with [...] with exploration of common bile duct CLIP,HEMOLOAYE REBECCA WECK FDA Start: 10-30-2019 Total cholecystectomy with exploration of common bile duct CLIP,HEMOLOAYE REBECCA WECK FDA Start: 10-30-2019 Total cholecystectomy with exploration of common bile duct CLIP,HEMOLOAYE FERNANDEZ WECK FDA Start: 10-30-2019 Total cholecystectomy with exploration of common bile duct DRESSING,FIBRILLAR 1X2 1960 FDA Start: 10-30-2019 Total cholecystectomy with exploration of common bile duct CLIP,HEMCONCK REBECCA WEAYE FDA Start: 10-30-2019 Total cholecystectomy with exploration of common bile duct CLIP,HEMOLOCK REBECCA WEAYE FDA Start: 10-30-2019 Total cholecystectomy with [...] cholecystectomy with exploration of common bile duct CLIP,HEMCONAYE CHRISTIANSEN FDA Start: 10-30-2019 Total cholecystectomy with exploration of common bile duct CLIP,HEMOLOAYE REBECCA WEAYE FDA Start: 10-30-2019 Total cholecystectomy with exploration of common bile duct DRESSING,FIBRILLAR 1X2 1960 FDA Start: 10-30-2019 Total cholecystectomy with exploration of common bile duct CLIP,CRISPINAYE REBECCA ЕЛЕНА FDA Start: 10-30-2019 Total cholecystectomy with exploration of common bile duct CLIP,HEMLINDA FERNANDEZ ЕЛЕНА FDA Start: 10-30-2019 Total cholecystectomy with exploration of common bile duct CLIP,HEMCONAYE CHRISTIANSEN FDA Start: 10-30-2019 Total cholecystectomy with exploration of common bile duct CLIP,HEMCONAYE REBECCA ЕЛЕНА FDA Start: 10-30-2019 Total cholecystectomy with exploration of common bile duct DRESSING,FIBRILLAR 1X2 1960 FDA Start: 10-30-2019 Total cholecystectomy with exploration of common bile duct CLIP,HEMCONAYE REBECCA ЕЛЕНА FDA Start: 10-30-2019 Total cholecystectomy with exploration of common bile duct CLIP,HEMOLOAYE FERNANDEZ WEAYE FDA Start: 10-30-2019 Total cholecystectomy with exploration of common bile duct CLIP,HEMOLOAYE FERNANDEZ WEAYE FDA Start: 10-30-2019 Total cholecystectomy with exploration of common bile duct CLIP,HEMOLOAYE REBECCA WECK FDA Start: 10-30-2019 Total cholecystectomy with exploration of common bile duct DRESSING,FIBRILLAR 1X2 1960 FDA Start: 10-30-2019 Total cholecystectomy with exploration of common bile duct CLIP,HEMCONAYE CHRISTIANSEN FDA Start: 10-30-2019 Total cholecystectomy with exploration of common bile duct CLIP,HEMCONAYE REBECCA ЕЛЕНА FDA Start: 10-30-2019 Total cholecystectomy with [...] 08-20-2022 Arthroscopy, shoulder, with rotator cuff repair ([id number]) Tendon/ligament bone anchor, bioabsorbable [id number] FDA Start: 08-20-2022 Arthroscopy, shoulder, with rotator [...] Start: 08-20-2022 Stent Phu Synerg y Xd [id number] - [id number] Start: 09-14-2024 Goals Date Patient Goal Desired Activity /State Functional Status Date Assessment Result Facility 08-21-2022 Functional status Ambulates [facility] Work Phone: Mental Status Date Assessment Result Facility 07-09-2023 Cognitive function Level Of Cons ciousness Awake;Alert;Appropriate [facility] Work Phone: 05-20-2023 Cognitive function Voice/Name [facility] Work Phone: 12-05-2022 Cognitive function Voice/Name [facility] Work Phone: 08-21-2022 Cognitive function Voice/Name [facility] Work Phone: 01-12-2022 Cognitive function Level Of Cons ciousness Awake;Appropriate [facility] Work Phone: 01-12-2022 Cognitive function Voice/Name [facility] Work Phone: 09-09-2021 Cognitive function Voice/Name [facility] Work Phone: Clinical Notes 09-26-2020 to 03-28-2025 Telephone Encounter - DANIELLE Whitehead CNP - 03/28/2025 11:58 AM SAYDATelephone Encounter - DANIELLE Whitehead CNP - 03/28/2025 11:58 AM Ruth Zarate RN - 11/17/2024 10:56 AM EDT Note Date & Type Note Facility 03-28-2025 Telephone encounter Note Received copy of blood work from IR[facility] landa. Sent to be scanned . PC to patient, continue same medications . He is feeling good. [facility] 03-28-2025 Miscellaneous Notes Received copy of blood work from [facility] land[facility]. Sent to be scanned . PC to patient, continue same medications . He is feeling good. documented in this encounter [facility] 03-23-2025 Note [facility] Medical Records Department [address] [place] [address] History Physical Exam 03/23/25 0951 MR#: [id number] Acct: [id number] Name: SHANNON OLSON Rep #: [id number] : 1955 69 From: Kenan SPARKS PAElizabethC PCP: Dr. Finn Ferrell MD Status:PRE [facility]: [facility] History and Physical History and Physical??? Patient Name: Shannon Olson : 1955From:??? KENAN MARAVILLA PA-C??? DATE OF PRE-OPERATIVE EXAM: 03/23/2025 DATE OF SURGERY:??? 04/02/2025 SCHEDULED PROCEDURE:??? Left robotic-assisted total knee arthroplasty HISTORY OF PRESENT ILLNESS: Preoperative history and physical exam was performed on March 23, 2025.??? This is a 69-year-old male who is been having ongoing pain for over 8 years with his left knee.??? He does have previous history of a right total knee arthroplasty by Dr. Terry Figueroa on April 18, 2019.??? Patient states the left knee he has had difficulty with throughout activities of daily living including work.??? The knee once to give out on him.??? His pain can reach 9/10 with activities.??? Pain is located over the medial and anterior knee.??? He has pain getting up from a seated position.??? Pain has been aching, sharp, and sore.??? His walking has been limited to 400 feet going to his mailbox before he has significant pain.??? Patient has difficulty putting on his socks and shoes due to the pain.??? Patient has fallen secondary to the knee pain.??? He has tried rest, ice, home exercises with minimal relief.??? He has tried oral medications including Tylenol.??? He is unable to use nonsteroidal anti- inflammatories due to his cardiac history and anticoagulation.??? Patient has had heart stents in which she feels much better now.??? He has also lost 26 pounds.??? Patient has obtain surgical clearance from the condenser setter Dr. Ortega and primary care with Dr. Ferrell.??? Eyeglass Lens Cutter recommends patient holds the Plavix and Eliquis 5 days before surgery.??? While he is off those medications he would like him to be on 81 mg aspirin daily.??? Patient is uncertain if he has had previous blood clot in the past.??? He denies any recent chest pain, shortness of breath, fevers chills.??? After failing conservative measures and discussing all treatment options with Dr. Terry Carolina, the patient does wish to proceed with a robotic assisted left total knee arthroplasty. REVIEW OF SYSTEMS: Review Of Systems: Constitutional: Reports weight change, but denies anorexia, anxiety, change in appetite and fever,hard of hearing, and vision problems. Cardiovasular: Reports atrial fibrillation and irregular heartbeat, but denies chest pain, heart murmur and peripheral vascular disease. Respiratory: Reports sleep apnea and shortness of breath, but denies asthma, cough, pneumonia, tuberculosis and wheezing. Gastrointestinal: Reports constipation, diarrhea, dysphagia and heartburn, but denies nausea, bloody stools and vomiting, and difficulty swallowing. Genitourinary: Denies incontinence. Musculoskeletal: Reports gait disturbance, leg swelling, pain, trouble walking and weakness and limp. Skin: Denies Raynaud's, history of shingles and tattoo. Neurological: Reports numbness/tingling but denies ambulatory dysfunction, difficulty with balance, dizziness and tremor. Psychiatric: Reports anxiety, depression and stress, but denies insomnia. Hematologic/Lymphatic: Reports anemia, but denies bleeding/bruising tendency and past transfusion. Reviewed and updated. PAST MEDICAL HISTORY: Advance Care Plan: Other Directive, LIVING WILL Effective Date: 03/13/2019 Past Medical History: Medical Problems: Arthritis, High Blood Pressure Heart Attack - (10/2006) Hypercholesterolemia, history of Afib, Sleep Apnea, rheumatoid arthritis, Coronary Artery Disease (CAD), Chronic Obstructive Pulmonary Disease (COPD), Acid Reflux, Asthma, Hyperlipidemia, TIA, Hypokalemia, Depression History Of Blood Clots/ DVT - patient is unsure if he has had one or not??? Congestive Heart Failure (CHF), Gout, Stroke, anemia Kidney Disease/Renal Failure - stage 3 chronic edema, vitamin D deficiency, Afib, arrhythmia, anxiety Accidents: Other - (12/24/2022) RT COLE INJURY FROM HITTING COLE ON A TRAILER HITCH??? FELL AND HIT HEAD??? Surgical Hx: Hip Replacement - (2000) RT THR Shoulder Replacement - (2005) RT SHOULDER Hernia Repair - SEVERAL YEARS AGO 2020 LT Knee Arthroscopy - (03/18/2007) [facility] NATA??? RT Excision Pre-Patellar Bursa - (05/10/2008) DR REDMOND AT [facility] Heart Cath - (01/2010) (23) TOTAL LT Knee Excision Pre-Patellar Bursa - (03/21/2010) JWG @ [facility] LT THR - (01/03/2013) JWG @ [facility] Cutter Baloon - (2015) STENTS??? LT Elbow - (09/06/2014) [email or web address] Knee Replacement RT - (2019) Gallbladder - (2019) 21 Stents Total - 2006,2007,2008,2009,2013,2018 2020(THREE) Carpal Tunnel Release LT - (08/14/2021) SAW (more content not included)... [facility] 02-22-2025 Telephone encounter Note Form faxed to [phone] and scanned under Media and confirmed. [facility] 02-22-2025 Miscellaneous Notes Form faxed to [phone] and scanned under Media Clearance form completed by Dr. Ortega, given to [place] Quick to fax Patient called requesting me to let Danisha know his surgery is scheduled 04/02/25. He does not need a call back. Received fax from [facility] [place], operated by [facility], patient scheduled for a robotic assisted left total knee arthoplasty on 04/02/[address] Figueroa. Patient has an upcoming appt with Dr. Ortega on 02/07/25, will address clearance at that time. documented in this encounter [facility] 02-22-2025 Miscellaneous Notes Form faxed to [phone] and scanned under Media and confirmed. Clearance form completed by Dr. Ortega, given to [place] Quick to fax Patient called requesting me to let Danisha know his surgery is scheduled 04/02/25. He does not need a call back. Received fax from [facility] [place], operated by [facility], patient scheduled for a robotic assisted left total knee arthoplasty on 04/02/[address] Figueroa. Patient has an upcoming appt with Dr. Ortega on 02/07/25, will address clearance at that time. documented in this encounter [facility] 02-21-2025 Telephone encounter Note Clearance form completed by Dr. Ortega, given to Berlin Quick to fax [facility] 02-07-2025 Telephone encounter Note Echocardiogram reviewed. EF now ~ 57%, recovered, grade 1 diastolic dysfunction, RV WNL. No valvular abnormalities. Discussed results with him at OV with BP this afternoon. [facility] 02-07-2025 History of Present illness Narrative Images from the original note were not included. [facility] [place] [address] [facility] [address] Dept: [phone] Dept Visit type: Established : 1955 Reason for Visit: Annual Assessment and Plan 1. 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 He has a history of [...] Weight: 294 lb (133 kg) Height: 6' 2.5 (1.892 m) Physical [...] daily., Disp: 90 tablet, Rfl: 3 HYDROcodone-acetaminophen ([place]) 5-325 MG tablet, Take 1 tablet by [...] Past Medical History: Diagnosis Date Angina pectoris ([facility]) Anxiety Arrhythmia A-fib Asthma CAD (coronary artery disease) Cerebral artery occlusion with cerebral infarction ([facility]) COPD (chronic obstructive pulmonary disease) ([facility]) Depression WATTS (dyspnea on exertion) Fatigue GERD (gastroesophageal reflux disease) History of cardioversion 05/07/2016 Successful conversion of a-fib to SR History of left heart catheterization 05/07/2016 60% stenosis right posterior descending, patent stents in prox, mid & distal RCA, patent stents in med LCx. Findings unchanged from previous study. 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) 12/2012 NSTEMI (non-ST elevated myocardial infarction) ([facility]) 05/2014 Obesity Old MD (myocardial infarction) HIPOLITO (obstructive sleep apnea) HIPOLITO on CPAP PAF (paroxysmal atrial fibrillation) ([facility]) Rheumatoid arthritis(714.0) ([facility]) ST segment elevation myocardial infarction (STEMI) of anterolateral wall, subsequent episode of care ([facility]) TIA (transient ischemic attack) [4] Past Surgical History: Procedure Laterality Date CAPSULOTOMY, HAND 05/07/2016 CARDIAC CATHETERIZATION N/A 03/01/2023 Performed by Zoie Gonzales MD at [facility] Cardiac Cath/EP Lab CARDIAC CATHETERIZATION Left 09/14/2024 Performed by Dominguez Ortega MD at [facility] Cardiac Cath/EP Lab CARDIAC CATHETERIZATION N/A 09/14/2024 Performed by Dominguez Ortega MD at [facility] Cardiac Cath/EP Lab CARDIAC CATHETERIZATION N/A 09/14/2024 Performed by Dominguez Ortega MD at [facility] Cardiac Cath/EP Lab CARDIAC CATHETERIZATION N/A 09/14/2024 Performed by Dominguez Ortega MD at [facility] Cardiac Cath/EP Lab CARDIAC PROCEDURE [...] CORONARY ANGIOPLASTY WITH STENT PLACEMENT Left 12/01/2021 APPLICATION SUPPORT LEAD/PCI to prox RCA CORONARY ANGIOPLASTY WITH STENT [...] Father Diabetes Brother documented in this encounter [facility] 02-07-2025 Miscellaneous Notes Echocardiogram reviewed. EF now ~ 57%, recovered, grade 1 diastolic dysfunction, RV WNL. No valvular abnormalities. Discussed results with him at with BP this afternoon. documented in this encounter [facility] 01-30-2025 Radiology Diagnostic study note [facility] Imaging Services [address] [place] [address] Thyroid MR#: [id number] Acct: [id number] Name: SHANNON OLSON Rep #: [id number] : 1955 M 69 From: Delta Zuleta MD PCP: Dr. Finn Ferrell MD Status: RE G CLI Study:Thyroid Date of Exam: 01/29/25 Exam# [id number] Ordering Dr: Finn Ferrell MD PROCEDURE: THYROID [...] no more than 2 nodules. Reading Location: [facility] CC: Dr. Finn Ferrell MD ~ Senior Sql Server Dba: Signed [facility] 01-30-2025 Radiology Diagnostic study note [facility] Imaging Services [address] [place] [address] Extremity Lower without Contra MR#: [id number] Acct: [id number] Name: SHANNON OLSON Rep #: [id number] : 1955 M 69 From: Jose Burdick MD PCP: Dr. Finn Ferrell MD Status: RE G CLI Study:Extremity Lower without Contra Date of Exam: 01/29/25 Exam# [id number] Ordering Dr: Vannessa Figueroa MD PROCEDURE: EXTREMITY [...] and degenerative changes as described. Reading Location: [place] [address] CC: Dr. Finn Ferrell MD; Dr. Terry Figueroa MD ~ Senior Sql Server Dba: Signed [facility] 01-19-2025 Telephone encounter Note Patient called requesting me to let Danisha know his surgery is scheduled 04/02/25. He does not need a call back. [facility] 01-18-2025 Telephone encounter Note Received fax from [facility] medicine [place], patient scheduled for a robotic assisted left total knee arthoplasty on 04/02/[address] Figueroa. Patient has an upcoming appt with Dr. Ortega on 02/07/25, will address clearance at that time. [facility] 01-16-2025 Telephone encounter Note Phone call to pateint to review lab work, LDL now down [...] good, very active, no angina, no SOB. [facility] 01-16-2025 Miscellaneous Notes Phone call to pateint to review lab work, LDL now down [...] good, very active, no angina, no SOB. documented in this encounter [facility] 12-13-2024 Note 12/13/24 1459 BPCI Late Drop? Program late drop? No BPCI Outreach Assessment Selection Which outreach assessment are you completing? 90 Day BPCI - 90 Day Outreach Did patient answer phone call? No [facility] 12-13-2024 Note BPCI 90 day call/jero sure BPCI hospitalization: Procedures: LHC on 09/14/24 for increased daily angina despite increased anti-anginal medications. Echo was with preserved EF 55%, now decreased with EF of 38% on 08/24/24. EMR reviewed. PMH: HIPOLITO, COPD, HTN, Afib, CKD 3 Called patients mobile number- unable to leave message. Ending program. [facility] 11-30-2024 Miscellaneous Notes [facility] [place] [place] 09/28/24, CMP completed 09/15/24. 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 Requesting refill torsemide (Demadex) 20 MG tablet [place] pharm verified documented in this encounter [facility] 11-30-2024 Telephone encounter Note [facility] [place] 09/28/24, CMP completed 09/15/24. 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 [facility] 11-30-2024 Telephone encounter Note Requesting refill torsemide (Demadex) 20 MG tablet [place] pharm verified [facility] 11-17-2024 Note 11/17/24 1056 BPCI Late Drop? Program late drop? No BPCI Outreach Assessment Selection Which outreach assessment are you completing? 60 Day BPCI - 60 Day Outreach Did patient answer phone call? No [facility] 11-17-2024 History of Present illness Narrative [...] HIPOLITO, COPD, HTN, Afib, CKD 3 Called [phone] mobile number for patient unable to leave message. Scheduled BPCI 90 day call- medications, follow up appointments. BPCI closure 12/17/24. documented in this encounter [facility] 11-17-2024 Note BPCI 60 day outreach BPCI hospitalization: Procedures: LHC on 09/14/24 for increased daily angina despite increased anti-anginal medications. Echo was with preserved EF 55%, now decreased with EF of 38% on 08/24/24. EMR reviewed. PMH: HIPOLITO, COPD, HTN, Afib, CKD 3 Called [phone] mobile number for patient unable to leave message. Scheduled BPCI 90 day call- medications, follow up appointments. BPCI closure 12/17/24. [facility] 11-15-2024 Radiology Diagnostic study note [facility] Imaging Services [address] [place] [address] Foot min 3 Views MR#: [id number] Acct: [id number] Name: SHANNON OLSON Rep #: [id number] : 1955 M 69 From: Roberto John MD PCP: Dr. Finn Ferrell MD Status: RE G ER Study:Foot min 3 Views Date of Exam: Exam# [id number] Ordering Dr: Cooper Francis DO PROCEDURE: FOOT [...] x-ray examination of the foot. Reading Location: [facility] CC: Dr. Cooper Francis, DO; Dr. Finn Ferrell MD ~ Senior Sql Server Dba: Signed [facility] 10-19-2024 Telephone encounter Note Great news, Tried to return phone call but no voice mail. Continue with same plan. [facility] 10-19-2024 Miscellaneous Notes Great news, Tried to return phone call but no voice mail. Continue with same plan. Pt called wanted Danisha to know he feels Awesome! Med changes are great, no chest pain, doing yard work, walking more. documented in this encounter [facility] 10-19-2024 Telephone encounter Note Pt called wanted Danisha to know he feels Awesome! Med changes are great, no chest pain, doing yard work, walking more. [facility] 10-18-2024 Note 10/18/24 0918 BPCI Late Drop? Program late drop? No BPCI Outreach Assessment Selection Which outreach assessment are you completing? 30 Day BPCI - 30 Day Outreach Did patient answer phone call? No [facility] 10-18-2024 History of Present illness Narrative [...] on the patient. documented in this encounter [facility] 10-18-2024 Note BPCI 30 day outreach BPCI [...] PRN call to check on the patient. [facility] 10-09-2024 History of Present illness Narrative [...] to re-admit to SNF/C if needed. N/A BP 21 day outreach BP hospitalization: Procedures: LHC on 09/14/24 for increased daily angina despite increased anti-anginal medications. Echo was with preserved EF 55%, now decreased with EF of 38% on 08/24/24. EMR reviewed. The patient had office visit with Cardiology 09/28/24. Called mobile number [phone] and spoke to the patient. The patient [...] well with nothing to report today. Scheduled BP 30 day outreach. Patient is scheduled with Dr. Escobedo on 02/07/2025, He lives in [place], please try and get his repeat ECHO for LV function, scheduled the same day. See order, I tried to call him to discuss, but he did not answer, no Voice mail. documented in this encounter [facility] 10-09-2024 Miscellaneous Notes Addended by: DANISHA SPAIN on: 10/10/2024 01:52 PM Modules accepted: Orders documented in this encounter [facility] 10-09-2024 Note Addended by: DANISHA SPAIN on: 10/10/2024 01:52 PM Modules accepted: Orders [facility] 10-09-2024 Note Addended by: DANISHA SPAIN on: 10/10/2024 01:52 PM Modules accepted: Orders [facility] 10-09-2024 Note Addended by: DANISHA SPAIN on: 10/10/2024 01:52 PM Modules accepted: Orders [facility] 10-09-2024 Note BPCI 21 day outreach BPCI hospitalization: Procedures: LHC on 09/14/24 for increased daily angina despite increased anti-anginal medications. Echo was with preserved EF 55%, now decreased with EF of 38% on 08/24/24. EMR reviewed. The patient had office visit with Cardiology 09/28/24. Called mobile number [phone] and spoke to the patient. The patient [...] report today. Scheduled BPCI 30 day outreach. [facility] 10-02-2024 Note 10/02/24 1009 BPCI Late Drop? Program late drop? No BPCI Outreach Assessment Selection Which outreach assessment are you completing? 14 Day BPCI - 14 Day Outreach Did patient answer phone call? No [facility] 10-02-2024 Note BPCI 14 day outreach [...] day outreach-has patient heard about CPAP machine? [facility] 09-28-2024 Telephone encounter Note Pt asking when he needs another Echo. Please call patient [facility] 09-28-2024 Miscellaneous Notes Pt asking when he needs another Echo. Please call patient documented in this encounter [facility] 09-28-2024 History of Present illness Narrative Images from the original note were not included. [facility] [address] [address] Dept: [phone] Dept Visit Type: Established NAME: Shannon Olson [...] management advised HTN (hypertension) Hyperlipidemia Hypertension Hypokalemia group home current use of antiarrhythmic drug group home current use of anticoagulant NSTEMI (non-ST elevated myocardial infarction) ([facility]) 12/2012 NSTEMI (non-ST elevated myocardial infarction) ([facility]) 05/2014 Obesity Old MD (myocardial infarction) HIPOLITO (obstructive sleep apnea) HIPOLITO on CPAP PAF (paroxysmal atrial fibrillation) ([facility]) Rheumatoid arthritis(714.0) ([facility]) ST segment elevation myocardial infarction (STEMI) of anterolateral wall, subsequent episode of care ([facility]) TIA (transient ischemic attack) Social History Tobacco Use Smoking status: Never Smokeless tobacco: Never Substance Use Topics Alcohol use: Not Currently Past Surgical History: Procedure Laterality Date CAPSULOTOMY, HAND 05/07/2016 CARDIAC CATHETERIZATION N/A 03/01/2023 Performed by Zoie Gonzales MD at [facility] Cardiac Cath/EP Lab CARDIAC CATHETERIZATION Left 09/14/2024 Performed by Dominguez Ortega MD at [facility] Cardiac Cath/EP Lab CARDIAC CATHETERIZATION N/A 09/14/2024 Performed by Dominguez Ortega MD at [facility] Cardiac Cath/EP Lab CARDIAC CATHETERIZATION N/A 09/14/2024 Performed by Dominguez Ortega MD at [facility] Cardiac Cath/EP Lab CARDIAC CATHETERIZATION N/A 09/14/2024 Performed by Dominguez Ortega MD at [facility] Cardiac Cath/EP Lab CARDIAC PROCEDURE [...] CORONARY ANGIOPLASTY WITH STENT PLACEMENT Left 12/01/2021 APPLICATION SUPPORT LEAD/PCI to prox RCA CORONARY ANGIOPLASTY WITH STENT [...] QT Interval 681 QTC Interval 636 P [place] 14 QRS [place] -5 T Wave [place] 166 OR Interval 202 Impression Sinus bradycardia Left bundle [...] coronary arteries. Last cath from 2022 showed APPLICATION SUPPORT LEAD of the mid RCA, patent LCx and [...] 7:24 AM Assessment /Plan 1. 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 -- Lifestyle modifications, low fat,low chol diet, exercise at least 3-5 times a week , and good blood pressure control - He will call me in 2 weeks, with plans to reduce Imdur or stop Ranexa if no angina. 2. PAF (paroxysmal atrial fibrillation) ([facility]) - Last EKG Sinus bradycardia - Continue [...] about 3 months (around 12/29/2024) for [place] GONZALEZ - Date of Service: 09/28/2024 Nurse Practitioner in Interventional Cardiology [facility] [place] [address] p [phone] [email or web address] documented in this encounter [facility] 09-28-2024 Instructions DANIELLE Whitehead CNP - 09/28/2024 11:30 AM EDT Reduce norvasc to 5 mg once a day , reduce Ranexa to 500 mg twice a day Add Zetia 10 mg daily Call me in 2-3 weeks [phone] documented in this encounter [facility] 09-25-2024 Note 09/25/24 1037 BPCI Late Drop? Program late drop? No BPCI Outreach Assessment Selection Which outreach assessment are you completing? 7 Day BPCI - 7 Day Outreach Did patient answer phone call? No [facility] 09-25-2024 Note BPCI 7 day outreach- [...] day outreach-how was follow up with Cardiology? [facility] 09-18-2024 History of Present illness Narrative BPCI referral- patient on outpatient BPCI list today-came to outpatient report late. Scheduled BPCI 7 day outreach. EMR reviewed. [facility] hospitalization: Procedures: Cath Summary: 09/14/24: Findings: Coronary [...] in stable condition. documented in this encounter [facility] 09-18-2024 Note BPCI referral- patie nt on outpatient BPCI list today-came to outpatient report late. Scheduled BPCI 7 day outreach. EMR reviewed. BP hospitalization: Procedures: Cath Summary: 09/14/24: Findings: Coronary [...] past. Discharged to home in stable condition. [facility] 09-15-2024 Plan of care note Problem: Pain - Adult Goal: Verbalizes/displays adequate comfort level or baseline comfort level Outcome: Progressing Problem: Safety - Adult Goal: Free from fall injury Outcome: Progressing Problem: Discharge Planning Goal: Discharge to home or other facility with appropriate resources Outcome: Progressing [facility] 09-15-2024 Miscellaneous Notes Problem: Pain - Adult [...] Report called to Gia LEE 1 [facility] APPLICATIONS PROGRAMMER updated on pt status, no improvement in chest pressure and now with room spinning dizziness. APPLICATIONS PROGRAMMER at pt bedside APPLICATIONS PROGRAMMER notified of pt c/o chest pressure 10 post PCI. Vitals stable. Post procedure EKG being completed. documented in this encounter [facility] 09-14-2024 Plan of care note Problem: Pain - Adult Goal: Verbalizes/displays adequate comfort level or baseline comfort level Outcome: Progressing Problem: Safety - Adult Goal: Free from fall injury Outcome: Progressing Problem: Discharge Planning Goal: Discharge to home or other facility with appropriate resources Outcome: Progressing [facility] 09-14-2024 History of Present illness Narrative S/P [...] placed for admission. documented in this encounter [facility] 09-14-2024 Nurse Note Report called to Gia LEE 1 [facility] 09-14-2024 Nurse Note APPLICATIONS PROGRAMMER updated on pt status, no improvement in chest pressure and now with room spinning dizziness. [facility] 09-14-2024 Note Attestation signed by Dominguez Ortega [...] of breath after procedure, possibly brilinta related. [place] well through the night into this morning. Assessment/Plan: Plan to discharge today with close follow up, on plavix and eliquis. Continue statin. Close follow up scheduled. Name: Shannon Olson Date of : 1955 Date of Admission: 09/14/2024 Date of Discharge: 09/15/2024 Admitting physician: Dominguez Ortega MD Discharge Attending: Rebecca De Dios APRN - [facility] Primary Care Physician: Finn Ferrell MD CC: [...] oz (140 kg) Height: Reason for Admission: [facility] Consultants: Cardiac Rehab HOSPITAL ADMISSION PROBLEM LIST: Patient Active Problem List Diagnosis Status post left heart catheterization CAD in [place] artery Class 2 obesity in adult Unstable angina (CMS/HCC) (HCC) WATTS (dyspnea on exertion) Obesity Hyperlipidemia COPD (chronic obstructive pulmonary disease) (HCC) Hypertension Atherosclerotic heart disease of [place] coronary 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 [facility] 09-14-2024 Nurse Note APPLICATIONS PROGRAMMER at pt bedside [facility] 09-14-2024 Hospital Discharge instructions Rebecca De Dios, RENT AND HOUSING INVESTIGATOR - CONTROL SYSTEM MANAGER - 09/14/2024 2:35 PM EDT Call your doctor with any medication questions or if you notice any side effects from your medications. If you are unable to fill your medications, please call your Eyeglass Lens Cutter immediately. The office number is located with [...] for 24 hours. GIVE PCI PACKET (FROM MOLD SANDER) TO PATIENT Give Coronary Artery Discharge Booklet [...] Cardiac Rehab [facility] consists of highly skilled exercise [...] your heart. We have facilities at both [facility] and [facility]. At both locations we have street level parking which is free and our sites are easily accessible. For both [facility] you can contact us at . We invite you to call us with your questions or to get started in our program. If you have other questions or concerns be sure to ask your provider during your follow up visit. We look forward to seeing you there. Our locations: [facility] [id number] - Ground floor The following attachments cannot be sent through Care Everywhere.Lowering Your Risk of Heart Disease (Singaporean)Heart Healthy Diet (Singaporean)documented in this encounter [facility] 09-14-2024 Note APPLICATIONS PROGRAMMER notified of pt c/ o chest pressure 6/10 post PCI. Vitals stable. Post procedure EKG being completed. [facility] 09-14-2024 Nurse Note APPLICATIONS PROGRAMMER notified of pt c/o chest pressure 6/10 post PCI. Vitals stable. Post procedure EKG being completed. [facility] 09-14-2024 Note H&P reviewed. The pa tient was examined and there are no changes to the H&P. [facility] 09-12-2024 Telephone encounter Note Prep for proc completed. [facility] Work Phone: 09-12-2024 Miscellaneous Notes Prep for proc completed. DANIELLE notified to complete prep for proc orders. Procedure being done: [facility] Date/time of procedure: 09/14/24 11 am [...] (first floor) at the hospital entrance at [address] [place] [address]. Nothing to eat or drink after midnight [...] of procedure. Please make arrangements for a spike driver after the procedure. You will not [...] call the Prep and Recovery area at [phone]. The schedule is not finalized until the afternoon, so please avoid calling before 4:30 pm. Dx: Procedure: LHC Date/Time: 09/14/2024 at 11:00a Surgeon: PB Location: [facility] Admission: OP Anesthesia: N/A No [...] need to fax order for labs to [facility]. Will add on for 09/14/2024 at 11 am., He will need an EKG the day of, has a recent OV from 08/24/2024. Notified patient of date and time. documented in this encounter [facility] 09-12-2024 Miscellaneous Notes Addended by: MIRYAM CASAS on: 09/12/2024 03:26 PM Modules accepted: Orders documented in this encounter [facility] 09-12-2024 Note Addended by: MIRYAM BELLAMY on: 09/12/2024 03:26 PM Modules accepted: Orders [facility] 09-12-2024 Note Addended by: MIRYAM BELLAMY on: 09/12/2024 03:26 PM Modules accepted: Orders [facility] 09-12-2024 Note Attestation signed by Dominguez Ortega [...] the planned procedure. ADDENDUM: Pt scheduled for [facility] with Dr. Ortega on 09/14/24 at [...] dated 08/24/[address] Ortega. [facility] [address] [facility] [address] Dept: [phone] Dept Visit Type: Established NAME: Shannon Olson [...] infarction (HCC) COPD (chronic obstructive pulmonary disease) ([facility]) Depression WATTS (dyspnea on exertion) Fatigue GERD (gastroesophageal reflux disease) History of cardioversion 05/07/2016 Successful conversion of a-fib to SR History of left h (more content not included)... [facility] 09-12-2024 Note Attestation signed by Dominguez [...] dated 08/24/[address] Ortega. [facility] [address] [address] [address] Dept: [phone] Dept Visit Type: Established NAME: Shannon Olson [...] of left h (more content not included)... [facility] 09-12-2024 Note RENT AND HOUSING INVESTIGATOR notified to com plete prep for proc orders. Procedure being done: [facility] Date/time of procedure: 09/14/24 11 am [...] EKG on arrival [] BMP [] CBC [facility] 09-12-2024 Telephone encounter Note RENT AND HOUSING INVESTIGATOR notified to complete prep for proc orders. Procedure being done: [facility] Date/time of procedure: 09/14/24 11 am [...] EKG on arrival [] BMP [] CBC [facility] 09-12-2024 Telephone encounter Note Labs scanned in under Media [facility] 09-12-2024 Telephone encounter Note I called and requested labs. She is faxing them over. [facility] 09-08-2024 Note PROCEDURE: LEFT HEAR T CATH PROCEDURE DATE: 09/14/24 PROCEDURE TIME: 11 am ARRIVE AT 9:30 am Report to the [facility] (first floor) at the hospital entrance at [address] [place] [address]. Nothing to eat or drink after midnight [...] of procedure. Please make arrangements for a spike driver after the procedure. You will not [...] call the Prep and Recovery area at [phone]. The schedule is not finalized until the afternoon, so please avoid calling before 4:30 pm. [facility] 09-08-2024 Telephone encounter Note Images from the original note were not included. PROCEDURE: LEFT HEART CATH PROCEDURE DATE: 09/14/24 PROCEDURE TIME: 11 am ARRIVE AT 9:30 am Report to the [facility] (first floor) at the hospital entrance at [address] [place] [address]. Nothing to eat or drink after midnight [...] of procedure. Please make arrangements for a spike driver after the procedure. You will not [...] call the Prep and Recovery area at [phone]. The schedule is not finalized until the afternoon, so please avoid calling before 4:30 pm. [facility] 09-08-2024 Miscellaneous Notes Images from the original note were not included. PROCEDURE: LEFT HEART CATH PROCEDURE DATE: 09/14/24 PROCEDURE TIME: 11 am ARRIVE AT 9:30 am Report to the Central [facility] (first floor) at the hospital entrance at [address] [place] [address]. Nothing to eat or drink after midnight [...] of procedure. Please make arrangements for a spike driver after the procedure. You will not [...] call the Prep and Recovery area at [phone]. The schedule is not finalized until the afternoon, so please avoid calling before 4:30 pm. Dx: Procedure: [facility] Date/Time: 09/14/2024 at 11:00a Surgeon: PB [...] need to fax order for labs to [facility]. Will add on for 09/14/2024 at 11 am., He will need an EKG the day of, has a recent OV from 08/24/2024. Notified patient of date and time. documented in this encounter [facility] 09-07-2024 Note Dx: Procedure: [facility] Date/Time: 09/14/2024 at 11:00a Surgeon: PB Location: [facility] Admission: OP Anesthesia: N/A No auth req per Medicare. On PB calendar and requested on Snapboard. [facility] 09-07-2024 Telephone encounter Note Dx: Procedure: [facility] Date/Time: 09/14/2024 at 11:00a Surgeon: PB Location: [facility] Admission: OP Anesthesia: N/A No auth req per Medicare. On PB calendar and requested on Snapboard. [facility] 09-07-2024 Miscellaneous Notes Dx: Procedure: [facility] Date/Time: 09/14/2024 at 11:00a Surgeon: PB Location: [facility] Admission: OP Anesthesia: N/A No [...] need to fax order for labs to [facility]. Will add on for 09/14/2024 at 11 am., He will need an EKG the day of, has a recent OV from 08/24/2024. Notified patient of date and time. documented in this encounter [facility] 09-07-2024 Telephone encounter Note See order for [facility] on 09/14/2024. [facility] 09-07-2024 Miscellaneous Notes See order for [facility] on 09/14/2024. Addended by: DANISHA SPAIN [...] returns. Pt requesting Imdur 60 mg to [facility] pharmacy and has more questions Phone call to patient. 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 He [...] with Dr. Ortega. documented in this encounter [facility] 09-07-2024 Telephone encounter Note Phone to patient, Dr. Ortega has reviewed his ECHO, reduce EF as compared to previous. He call the office with increased Episodes of angina. Taking more SL NTG than usual. Have max out his anti-angina medications. Holter monitor without atrial fibrillation. Low burden of PAC's and PVC's. Will need to fax order for labs to [facility]. Will add on for 09/14/2024 at 11 am., He will need an EKG the day of, has a recent OV from 08/24/2024. Notified patient of date and time. [facility] 08-30-2024 Note Addended by: DANISHA SPAIN on: 08/30/2024 11:32 AM Modules accepted: Orders [facility] 08-30-2024 Note Addended by: DANISHA SPAIN on: 08/30/2024 11:32 AM Modules accepted: Orders [facility] 08-30-2024 Note Addended by: DANISHA SPAIN on: 08/30/2024 11:32 AM Modules accepted: Orders [facility] 08-30-2024 Note Addended by: DANISHA SPAIN on: 08/30/2024 11:32 AM Modules accepted: Orders [facility] 08-30-2024 Miscellaneous Notes Addended by: DANISHA SPAIN [...] returns. Pt requesting Imdur 60 mg to [facility] and has more questions Phone call to patient. Yesterday, he went down to his [employer], and did some work outdoors. He felt [...] with Dr. Ortega. documented in this encounter [facility] 08-30-2024 Telephone encounter Note Return phone call to Patient, Kirti renewed, [...] discuss results with him when he returns. [facility] 08-30-2024 Telephone encounter Note Pt requesting Imdur 60 mg to [facility] and has more questions [facility] 08-29-2024 Telephone encounter Note Phone call to patient. Yesterday, he went down to his [employer], and did some work outdoors. He felt really good with no angina or SOB. He did increase the lopressor to 50 mg bid. He still does not have a new CPAP machine, but has been calling about. Reviewed the results of the Echocardiogram, now with reduced EF ~ 38%, and and RVE. , JET. I will review with Dr. Ortega. [facility] 08-29-2024 Miscellaneous Notes Phone call to patient. 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 He [...] with Dr. Ortega. documented in this encounter [facility] 08-24-2024 History of Present illness Narrative Images from the original note were not included. [facility] [address] [facility] [address] [address] Dept: [phone] Dept Visit Type: Established NAME: Shannon Olson [...] Past Medical History: Diagnosis Date Angina pectoris ([facility]) Anxiety Arrhythmia A-fib Asthma CAD (coronary artery disease) Cerebral artery occlusion with cerebral infarction ([facility]) COPD (chronic obstructive pulmonary disease) ([facility]) Depression WATST (dyspnea on exertion) Fatigue GERD (gastroesophageal reflux disease) History of cardioversion 05/07/2016 Successful conversion of a-fib to SR History of left heart catheterization 05/07/2016 60% stenosis right posterior descending, patent stents in prox, mid & distal RCA, patent stents in med LCx. Findings unchanged from previous study. 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 group home current use of antiarrhythmic drug group home current use of anticoagulant NSTEMI (non-ST elevated myocardial infarction) ([facility]) 12/2012 NSTEMI (non-ST elevated myocardial infarction) ([facility]) 05/2014 Obesity Old MD (myocardial infarction) HIPOLITO (obstructive sleep apnea) HIPOLITO on CPAP PAF (paroxysmal atrial fibrillation) ([facility]) Rheumatoid arthritis(714.0) ([facility]) ST segment elevation myocardial infarction (STEMI) of anterolateral wall, subsequent episode of care ([facility]) TIA (transient ischemic attack) Social History Tobacco Use Smoking status: Never Smokeless tobacco: Never Substance Use Topics Alcohol use: Not Currently Past Surgical History: Procedure Laterality Date CAPSULOTOMY, HAND 05/07/2016 CARDIAC CATHETERIZATION N/A 03/01/2023 Performed by Zoie Gonzales MD at [facility] Cardiac Cath/EP Lab CARDIAC PROCEDURE [...] CORONARY ANGIOPLASTY WITH STENT PLACEMENT Left 12/01/2021 APPLICATION SUPPORT LEAD/PCI to prox RCA CORONARY ANGIOPLASTY WITH STENT [...] PROCEDURE 03/01/2023 10:44 AM (Final) Conclusion Impression: APPLICATION SUPPORT LEAD of mid RCA that was previously treated [...] 10:44 AM Assessment /Plan 1. CAD in [place] artery (Primary),with preserved EF 55% ( per [...] Service: 08/24/2024 Nurse Practitioner in Interventional Cardiology [facility] - Cardiology [place] [id number] p [phone] [email or web address] documented in this encounter [facility] 08-24-2024 Instructions DANIELLE Whitehead CNP - 08/24/2024 3:00 PM EDT Increase Lopressor to 50 mg twice day Monitor Blood pressure and heart rate, call if you get dizzy , If blood pressure below 100 systolic ( top number) call me. [phone] documented in this encounter [facility] 07-20-2024 History of Present illness Narrative Images from the original note were not included. [facility] [address] [facility] [address] Dept: [phone] Dept Visit Type: Established NAME: Shannon Olson : 1955 Reason for Visit: CAD / Angina Subjective HPI Shannon Olson is an 68 y.o. male, now followed by Dr. Oretga, with PMH of CAD, with multiple coronary [...] Past Medical History: Diagnosis Date Angina pectoris ([facility]) Anxiety Arrhythmia A-fib Asthma CAD (coronary artery disease) Cerebral artery occlusion with cerebral infarction ([facility]) COPD (chronic obstructive pulmonary disease) ([facility]) Depression WATTS (dyspnea on exertion) Fatigue GERD (gastroesophageal reflux disease) History of cardioversion 05/07/2016 Successful conversion of a-fib to SR History of left heart catheterization 05/07/2016 60% stenosis right posterior descending, patent stents in prox, mid & distal RCA, patent stents in med LCx. Findings unchanged from previous study. 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) ([facility]) 12/2012 NSTEMI (non-ST elevated myocardial infarction) ([facility]) ([facility]) 05/2014 Obesity Old MD (myocardial infarction) HIPOLITO (obstructive sleep apnea) HIPOLITO on CPAP PAF (paroxysmal atrial fibrillation) ([facility]) Rheumatoid arthritis(714.0) ([facility]) ST segment elevation myocardial infarction (STEMI) of anterolateral wall, subsequent episode of care ([facility]) ([facility]) TIA (transient ischemic attack) Social History Tobacco Use Smoking status: Never Smokeless tobacco: Never Substance Use Topics Alcohol use: Not Currently Past Surgical History: Procedure Laterality Date CAPSULOTOMY, HAND 05/07/2016 CARDIAC CATHETERIZATION N/A 03/01/2023 Performed by Zoie Gonzales MD at [facility] Cardiac Cath/EP Lab CARDIAC PROCEDURE [...] CORONARY ANGIOPLASTY WITH STENT PLACEMENT Left 12/01/2021 APPLICATION SUPPORT LEAD/PCI to prox RCA CORONARY ANGIOPLASTY WITH STENT [...] PROCEDURE 03/01/2023 10:44 AM (Final) Conclusion Impression: APPLICATION SUPPORT LEAD of mid RCA that was previously treated [...] 10:44 AM Assessment /Plan . CAD in [place] artery (Primary),with preserved EF 55% ( per [...] Service: 07/06/2024 Nurse Practitioner in Interventional Cardiology [facility] - Cardiology There are no diagnoses linked to this encounter. No follow-ups on file. [place] GONZALEZ - Date of Service: 07/13/2024 Nurse Practitioner in Interventional Cardiology [facility] [place] [address] p [phone] [email or web address] documented in this encounter [facility] 07-20-2024 Instructions DANIELLE Whitehead CNP - 07/20/2024 2:00 PM EST Increase Ranexa to 1000 mg in the am, and 500 mg in the evening. documented in this encounter [facility] 07-13-2024 Telephone encounter Note Patient cancelled his appt today, due to bad weather. He is feeling a little better. Has used [facility] NTG a few times. He is R/S for next week. [facility] 07-13-2024 Miscellaneous Notes Patient cancelled his appt [...] Medication Name: no documented in this encounter [facility] 07-13-2024 Telephone encounter Note Name of Caller: Shannon Contact Reason for Appointment: Cancel and R/S 07/13/2024 at 130pm due to weather Office Name: [facility] [email or web address] Medication Refills need, if any: no Medication Name: no [facility] 07-06-2024 History of Present illness Narrative Images from the original note were not included. [facility] [address] [place] [address] Dept: [phone] Dept Visit Type: Established NAME: Shannon Olson [...] Past Medical History: Diagnosis Date Angina pectoris ([facility]) Anxiety Arrhythmia A-fib Asthma CAD (coronary artery disease) Cerebral artery occlusion with cerebral infarction ([facility]) COPD (chronic obstructive pulmonary disease) ([facility]) Depression WATTS (dyspnea on exertion) Fatigue GERD (gastroesophageal reflux disease) History of cardioversion 05/07/2016 Successful conversion of a-fib to SR History of left heart catheterization 05/07/2016 60% stenosis right posterior descending, patent stents in prox, mid & distal RCA, patent stents in med LCx. Findings unchanged from previous study. 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) ([facility]) 12/2012 NSTEMI (non-ST elevated myocardial infarction) ([facility]) ([facility]) 05/2014 Obesity Old MD (myocardial infarction) HIPOLITO (obstructive sleep apnea) HIPOLITO on CPAP PAF (paroxysmal atrial fibrillation) ([facility]) Rheumatoid arthritis(714.0) ([facility]) ST segment elevation myocardial infarction (STEMI) of anterolateral wall, subsequent episode of care ([facility]) ([facility]) TIA (transient ischemic attack) Social History Tobacco Use Smoking status: Never Smokeless tobacco: Never Substance Use Topics Alcohol use: Not Currently Past Surgical History: Procedure Laterality Date CAPSULOTOMY, HAND 05/07/2016 CARDIAC CATHETERIZATION N/A 03/01/2023 Performed by Zoie Gonzales MD at [facility] Cardiac Cath/EP Lab CARDIAC PROCEDURE [...] CORONARY ANGIOPLASTY WITH STENT PLACEMENT Left 12/01/2021 APPLICATION SUPPORT LEAD/PCI to prox RCA CORONARY ANGIOPLASTY WITH STENT [...] PROCEDURE 03/01/2023 10:44 AM (Final) Conclusion Impression: APPLICATION SUPPORT LEAD of mid RCA that was previously treated [...] 10:44 AM Assessment /Plan 1. CAD in [place] artery (Primary),with preserved EF 55% ( per [...] in about 1 week (around 07/13/2024) for Betty. France GONZALEZ - Date of Service: 07/06/2024 Nurse Practitioner in Interventional Cardiology [facility] - Cardiology [place] [id number] p [phone] [email or web address] documented in this encounter [facility] 07-06-2024 History of Present illness Narrative Images from the original note were not included. [facility] [address] [place] [address] Dept: [phone] Dept Visit Type: Established NAME: Shannon Olson [...] Past Medical History: Diagnosis Date Angina pectoris ([facility]) Anxiety Arrhythmia A-fib Asthma CAD (coronary artery disease) Cerebral artery occlusion with cerebral infarction ([facility]) COPD (chronic obstructive pulmonary disease) ([facility]) Depression WATTS (dyspnea on exertion) Fatigue GERD (gastroesophageal reflux disease) History of cardioversion 05/07/2016 Successful conversion of a-fib to SR History of left heart catheterization 05/07/2016 60% stenosis right posterior descending, patent stents in prox, mid & distal RCA, patent stents in med LCx. Findings unchanged from previous study. 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 group home current use of antiarrhythmic drug group home current use of anticoagulant NSTEMI (non-ST elevated myocardial infarction) ([facility]) ([facility]) 12/2012 NSTEMI (non-ST elevated myocardial infarction) ([facility]) ([facility]) 05/2014 Obesity Old MD (myocardial infarction) HIPOLITO (obstructive sleep apnea) HIPOLITO on CPAP PAF (paroxysmal atrial fibrillation) ([facility]) Rheumatoid arthritis(714.0) ([facility]) ST segment elevation myocardial infarction (STEMI) of anterolateral wall, subsequent episode of care ([facility]) ([facility]) TIA (transient ischemic attack) Social History Tobacco Use Smoking status: Never Smokeless tobacco: Never Substance Use Topics Alcohol use: Not Currently Past Surgical History: Procedure Laterality Date CAPSULOTOMY, HAND 05/07/2016 CARDIAC CATHETERIZATION N/A 03/01/2023 Performed by Zoie Gonzales MD at [facility] Cardiac Cath/EP Lab CARDIAC PROCEDURE [...] CORONARY ANGIOPLASTY WITH STENT PLACEMENT Left 12/01/2021 APPLICATION SUPPORT LEAD/PCI to prox RCA CORONARY ANGIOPLASTY WITH STENT [...] PROCEDURE 03/01/2023 10:44 AM (Final) Conclusion Impression: APPLICATION SUPPORT LEAD of mid RCA that was previously treated [...] 10:44 AM Assessment /Plan 1. CAD in [place] artery (Primary),with preserved EF 55% ( per [...] in about 1 week (around 07/13/2024) for Betty. [place] APRN-RIA - Date of Service: 07/06/2024 Nurse Practitioner in Interventional Cardiology [facility] [place] [address] p [phone] [email or web address] documented in this encounter [facility] 07-06-2024 Instructions DANIELLE Whitehead CNP - 07/06/2024 [...] doing chores. 7 documented in this encounter [facility] 07-06-2024 Telephone encounter Note Phone call to patient , He is having increased angina, Agreeable to OV today at 2:30 pm. [facility] Work Phone: 07-06-2024 Miscellaneous Notes Phone call [...] to come in for appt if appropriate. 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 Patient c/o CP walking around the house today. nitroglycerin has eased some of the pain, some SOB when he walks. Requesting an appt today. documented in this encounter [facility] 07-06-2024 Telephone encounter Note Patient called into [...] to come in for appt if appropriate. 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 [facility] 07-06-2024 Telephone encounter Note Patient c/o CP walking around the house today. nitroglycerin has eased some of the pain, some SOB when he walks. Requesting an appt today. [employer] [facility] 05-22-2024 Telephone encounter Note I spoke w/ pt, confirmed RX request. [employer] [facility] 05-22-2024 Miscellaneous Notes I spoke w/ pt, confirmed RX request. Patient requesting refill Imdur (isosorbide) 60mg metoprolol tartrate (Lopressor) [address] [facility] verified documented in this encounter [facility] 05-22-2024 Telephone encounter Note Patient requesting refill Imdur (isosorbide) 60mg metoprolol tartrate (Lopressor) [address] pharm verified [facility] 04-28-2024 Telephone encounter Note Received fax from pharmacy for refill of rosuvastatin [address] Ortega 02/01/24. Lipid panel completed 02/19/23. Pended Rika gimenez APRN to sign. [facility] 04-28-2024 Miscellaneous Notes Received fax from pharmacy for refill of rosuvastatin [address] Ortega 02/01/24. Lipid panel completed 02/19/23. Pended rxRika APRN to sign. documented in this encounter [facility] 03-09-2024 Telephone encounter Note [facility] 02/01/24 [facility] 03-09-2024 Miscellaneous Notes [facility] 02/01/24 documented in this encounter [facility] 02-01-2024 History of Present illness Narrative Images from the original note were not included. [facility] [address] [facility] [address] Dept: [phone] Dept Visit type: Established : 1955 Reason for Visit: Hospital Follow-up Assessment and Plan 1. Obesity (BMI 30-39.9) - [facility] 2. CAD in [place] artery 3. Essential hypertension 4. 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 He has a history of [...] Past Medical History: Diagnosis Date Angina pectoris ([facility]) Anxiety Arrhythmia A-fib Asthma CAD (coronary artery disease) Cerebral artery occlusion with cerebral infarction ([facility]) COPD (chronic obstructive pulmonary disease) ([facility]) Depression WATTS (dyspnea on exertion) Fatigue GERD (gastroesophageal reflux disease) History of cardioversion 05/07/2016 Successful conversion of a-fib to SR History of left heart catheterization 05/07/2016 60% stenosis right posterior descending, patent stents in prox, mid & distal RCA, patent stents in med LCx. Findings unchanged from previous study. 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 group home current use of antiarrhythmic drug group home current use of anticoagulant NSTEMI (non-ST elevated myocardial infarction) ([facility]) ([facility]) 12/2012 NSTEMI (non-ST elevated myocardial infarction) ([facility]) ([facility]) 05/2014 Obesity Old MD (myocardial infarction) HIPOLITO (obstructive sleep apnea) HIPOLITO on CPAP PAF (paroxysmal atrial fibrillation) ([facility]) Rheumatoid arthritis(714.0) ([facility]) ST segment elevation myocardial infarction (STEMI) of anterolateral wall, subsequent episode of care ([facility]) ([facility]) TIA (transient ischemic attack) Social History Tobacco Use Smoking status: Never Smokeless tobacco: Never Substance Use Topics Alcohol use: Not Currently Past Surgical History: Procedure Laterality Date CAPSULOTOMY, HAND 05/07/2016 CARDIAC CATHETERIZATION N/A 03/01/2023 Performed by Zoie Gonzales MD at [facility] Cardiac Cath/EP Lab CARDIAC PROCEDURE [...] CORONARY ANGIOPLASTY WITH STENT PLACEMENT Left 12/01/2021 APPLICATION SUPPORT LEAD/PCI to prox RCA CORONARY ANGIOPLASTY WITH STENT [...] Dominguez Ortega MD documented in this encounter [facility] 12-21-2023 Telephone encounter Note Spoke with patient [...] office back if he has any concerns. [facility] 12-21-2023 Miscellaneous Notes Spoke with patient and he stated PCP office called him yesterday afternoon and stated medication alterative can be to have a vial and draw medication up, patient declined this option and stated PCP did not provide alterative. Advised patient to call insurance [employer] on preferred brand of medication. If he does not have any alteratives, stated can offer to place referral to weight management services. Patient will call office back if he has any concerns. Patient states he was returning call to [facility] to discuss his medication. Please contact to advise. Spoke with patient and PCP Dr. Ferrell prescribed an injectable medication for weight loss. Patient went to crab picker medication from pharmacy and it was [...] through our pharmacy. documented in this encounter [facility] 12-20-2023 Telephone encounter Note Patient states he was returning call to [facility] to discuss his medication. Please contact to advise. [facility] 12-20-2023 Miscellaneous Notes Patient states he was returning call to [facility] to discuss his medication. Please contact to advise. Spoke with patient and PCP Dr. Ferrell prescribed an injectable medication for weight loss. Patient went to crab picker medication from pharmacy and it was [...] through our pharmacy. documented in this encounter [facility] 12-20-2023 Telephone encounter Note Spoke with patient and PCP Dr. Ferrell prescribed an injectable medication for weight loss. Patient went to crab picker medication from pharmacy and it was >$300. Patient requested our office called PCP office to see what further interventions can be done. Spoke with PCP office and medication called James (semaglutide). Explained patient's situation and office has options for patient. Instructed patient PCP office will reach out to patient to discuss. [facility] 12-20-2023 Telephone encounter Note Patient called RE: weight loss injection his PCP is trying to rx. He can not remember the name. He tried to get filled at his pharmacy and it is > $300. He is wondering if we can help him get it through our pharmacy. [facility] 07-29-2023 History of Present illness Narrative [facility] Cardiology [facility] [address] [place] [address] Dept: [phone] Dept Loc: [phone] Visit type: Established : 1955 Chief Complaint: [...] Past Medical History: Diagnosis Date Angina pectoris ([facility]) Anxiety Arrhythmia A-fib Asthma CAD (coronary artery disease) Cerebral artery occlusion with cerebral infarction ([facility]) COPD (chronic obstructive pulmonary disease) ([facility]) Depression WATTS (dyspnea on exertion) Fatigue GERD (gastroesophageal reflux disease) History of cardioversion 05/07/2016 Successful conversion of a-fib to SR History of left heart catheterization 05/07/2016 60% stenosis right posterior descending, patent stents in prox, mid & distal RCA, patent stents in med LCx. Findings unchanged from previous study. 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) ([facility]) 12/2012 NSTEMI (non-ST elevated myocardial infarction) ([facility]) ([facility]) 05/2014 Obesity Old MD (myocardial infarction) HIPOLITO (obstructive sleep apnea) HIPOLITO on CPAP PAF (paroxysmal atrial fibrillation) ([facility]) Rheumatoid arthritis(714.0) ([facility]) ST segment elevation myocardial infarction (STEMI) of anterolateral wall, subsequent episode of care ([facility]) ([facility]) TIA (transient ischemic attack) Past Surgical History Past Surgical History: Procedure Laterality Date CAPSULOTOMY, HAND 05/07/2016 CARDIAC CATHETERIZATION N/A 03/01/2023 Performed by Zoie Gonzales MD at [facility] Cardiac Cath/EP Lab CARDIAC PROCEDURE [...] CORONARY ANGIOPLASTY WITH STENT PLACEMENT Left 12/01/2021 APPLICATION SUPPORT LEAD/PCI to prox RCA CORONARY ANGIOPLASTY WITH STENT [...] abnormalities. Last cardiac catheterization: 03/01/2023 Conclusion Impression: APPLICATION SUPPORT LEAD of mid RCA that was previously treated [...] added Assessment and Plan: 1. CAD in [place] artery 2. Essential hypertension, benign 3. Mixed hyperlipidemia 4. PAF (paroxysmal atrial fibrillation) ([facility]) 5. Chronic diastolic heart failure (HCC) 1. CAD in [place] artery: With known APPLICATION SUPPORT LEAD of the mid right coronary artery: Continue [...] Handicap Placard 4. PAF (paroxysmal atrial fibrillation) ([facility]) He has been maintained on amiodarone 200 mg daily, as well as Eliquis 5 mg twice daily. 5. Chronic diastolic heart failure (HCC) Continue Aldactone 25 mg twice a day as well as torsemide 20 mg a day. - Handicap Placard I will obtain his blood work from his primary care physician. He wishes to establish with Dr. Ortega upon Dr. Gonzales's chcf. He will follow-up in 6 months or sooner if issues arise. documented in this encounter [facility] 07-06-2023 Telephone encounter Note Pt called back in requesting a call back from Dr. Tree Gonzales to discuss a private matter. Please advise [facility] 07-06-2023 Miscellaneous Notes Pt called back in requesting a call back from Dr. Tree Gonzales to discuss a private matter. Please advise Name of caller: Fide Contact phone number: [phone] ext [phone] Relationship to Patient: Ramon Provider: dr Boyce Practice: [facility] Chief Complaint/Reason for Call: New Sleep study and a new order for medicare is needed to approve the Auto Bipap machine Best time of day caller can be reached: Any Patient advised that office/PCP has 24-48 business hours to return their call: Yes Name of caller: Shannon Contact phone number: [phone] Relationship to Patient: patient Provider: Dr. Gonzales [place] [facility] [place] [facility] Chief Complaint/Reason for Call: Patient states that he would like to receive a call from Dr. Gonzales directly to discuss a private matter. Please advise. Best time of day caller can be reached: Any Patient advised that office/PCP has 24-48 business hours to return their call: No documented in this encounter [facility] 07-05-2023 Discharge summary Note Date/Time July 05, 2023 12:06pm [facility] Medical Records Department [address] [place] [address] Emergency Department Summary 07/05/23 MR#: [id number] Acct: [id number] Name: SHANNON OLSON Rep #:[id number] : 1955 67 From: Reynaldo Gaviria DO [...] bloody stools. He denies fevers or chills. PFSH PFS Medical History Anxiety Atrial fibrillation CAD (coronary artery disease) Cardiology follow-up encounter Chest pain Cholelithiasis with chronic cholecystitis COPD (chronic obstructive pulmonary disease) COPD (chronic obstructive pulmonary disease) Coronary atherosclerosis of [place] coronary vessel Depression Difficulty swallowing Dysphagia Epidermal [...] 74.9 H Lymph % (Auto) 15.2 L Moca % (Auto) 7.1 Eos % (Auto) 1.4 [...] Clarity Clear Urine pH 6.0 Ur Specific [place] 1.015 Urine Protein Negative Urine Glucose (UA) [...] your Primary Care Provider. Call [facility] ([phone]) or report to the closest Emergency Room. Call 911 if necessary. 07/05/23 1413 <Electronically signed by Reynaldo Gaviria DO> Cosigner Signature (if applicable): CC: Dr. Finn Ferrell MD ~ Signed [facility] Work Phone: [phone] 365-358502-09-2024 Telephone encounter Note* Telephone Encounter - Melanie Reza - 07/02/2023 10:00 AM EST Name of caller: Fide Contact phone number: [phone] Relationship to Patient: Ramon Provider: dr Boyce Practice: Pulm Chief Complaint/Reason for Call: New Sleep study and a new order for medicare is needed to approve the Auto Bipap machine Best time of day caller can be reached: Any Patient advised that office/PCP has 24-48 business hours to return their call: Yes [facility] [id number] Telephone encounter Note* Telephone Encounter - Sapna Smalls - 07/01/2023 2:49 PM EST Name of caller: Shannon Contact phone number: [phone] Relationship to Patient: patient Provider: Dr. Gonzales [place] [facility] [place] [facility] Chief Complaint/Reason for Call: Patient states that he would like to receive a call from Dr. Gonzales directly to discuss a private matter. Please advise. Best time of day caller can be reached: Any Patient advised that office/PCP has 24-48 business hours to return their call: No [facility] [id number] History of Present illness Narrative* France Spain, DANIELLE - CONTROL SYSTEM MANAGER - 06/17/2023 10:00 AM EST [facility] Cardiology [facility] [address] [place] [address] Dept: [phone] Dept Loc: [phone] Visit type: Established : 1955 Chief Complaint: [...] and has been unsuccessful in contacting the dog daycare provider. He has not lost a significant amount [...] follow-up in a couple weeks with the science interpreter. Past Medical History: Past Medical History: Diagnosis Date Angina pectoris ([facility]) Anxiety Arrhythmia A-fib Asthma CAD (coronary artery disease) Cerebral artery occlusion with cerebral infarction ([facility]) COPD (chronic obstructive pulmonary disease) ([facility]) Depression WATTS (dyspnea on exertion) Fatigue GERD (gastroesophageal reflux disease) History of cardioversion 05/07/2016 Successful conversion of a-fib to SR History of left heart catheterization 05/07/2016 60% stenosis right posterior descending, patent stents in prox, mid & distal RCA, patent stentsin med LCx. Findings unchanged from previous study. 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) ([facility]) 12/2012 NSTEMI (non-ST elevated myocardial infarction) ([facility]) ([facility]) 05/2014 Obesity Old MD (myocardial infarction) HIPOLITO (obstructive sleep apnea) HIPOLITO on CPAP PAF (paroxysmal atrial fibrillation) ([facility]) Rheumatoid arthritis(714.0) ([facility]) ST segment elevation myocardial infarction (STEMI) of anterolateral wall, subsequent episode of care ([facility]) ([facility]) TIA (transient ischemic attack) Past Surgical History Past Surgical History: Procedure Laterality Date CAPSULOTOMY, HAND 05/07/2016 CARDIAC CATHETERIZATION N/A 03/01/2023 Performed by Zoie Gonzales MD at [facility] Cardiac Cath/EP Lab CARDIAC PROCEDURE [...] CORONARY ANGIOPLASTY WITH STENT PLACEMENT Left 12/01/2021 APPLICATION SUPPORT LEAD/PCI to prox RCA CORONARY ANGIOPLASTY WITH STENT [...] abnormalities. Last cardiac catheterization: 03/01/2023 Conclusion Impression: APPLICATION SUPPORT LEAD of mid RCA that was previously treated [...] added Assessment and Plan: 1. CAD in [place] artery with Stable angina: His angina seems [...] rosuvastatin 40 mg daily. documented in this [facility]01-25-2024 History of Present illness Narrative* DANIELLE Whitehead CNP - 06/17/2023 10:00 AM EST [facility] Cardiology [facility] [address] [place] [address] Dept: [phone] Dept Loc: [phone] Visit type: Established : 1955 Chief Complaint: [...] and has been unsuccessful in contacting the dog daycare provider. He has not lost a significant amount [...] follow-up in a couple weeks with the science interpreter. Past Medical History: Past Medical History: Diagnosis Date Angina pectoris ([facility]) Anxiety Arrhythmia A-fib Asthma CAD (coronary artery disease) Cerebral artery occlusion with cerebral infarction ([facility]) COPD (chronic obstructive pulmonary disease) ([facility]) Depression WATTS (dyspnea on exertion) Fatigue GERD (gastroesophageal reflux disease) History of cardioversion 05/07/2016 Successful conversion of a-fib to SR History of left heart catheterization 05/07/2016 60% stenosis right posterior descending, patent stents in prox, mid & distal RCA, patent stentsin med LCx. Findings unchanged from previous study. 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) ([facility]) 12/2012 NSTEMI (non-ST elevated myocardial infarction) ([facility]) ([facility]) 05/2014 Obesity Old MD (myocardial infarction) HIPOLITO (obstructive sleep apnea) HIPOLITO on CPAP PAF (paroxysmal atrial fibrillation) ([facility]) Rheumatoid arthritis(714.0) ([facility]) ST segment elevation myocardial infarction (STEMI) of anterolateral wall, subsequent episode of care (CMS/HCC) (HCC) TIA (transient ischemic attack) Past Surgical History Past Surgical History: Procedure Laterality Date CAPSULOTOMY, HAND 05/07/2016 CARDIAC CATHETERIZATION N/A 03/01/2023 Performed by Zoie Gonzales MD at [facility] Cardiac Cath/EP Lab CARDIAC PROCEDURE [...] CORONARY ANGIOPLASTY WITH STENT PLACEMENT Left 12/01/2021 APPLICATION SUPPORT LEAD/PCI to prox RCA CORONARY ANGIOPLASTY WITH STENT [...] abnormalities. Last cardiac catheterization: 03/01/2023 Conclusion Impression: APPLICATION SUPPORT LEAD of mid RCA that was previously treated [...] added Assessment and Plan: 1. CAD in [place] artery with Stable angina: His angina seems [...] worsening angina. 4. PAF (paroxysmal atrial fibrillation) ([facility]) Continues on amiodarone 200 daily, as well as apixaban 5 mg twice a day. 5. Mixed hyperlipidemia LDL at goal, continue rosuvastatin 40 mg daily. documented in this [facility]01-25-2024 Instructions* Patient Instructions* DANIELLE Whitehead CNP - 06/17/2023 10:00 AM EST Reduce minoxidil to 5 mg daily. documented in this [facility]12-28-2023 Procedure [facility]12-28-2023 Procedure [facility]12-18-2023 History of Present illness Narrative* Tree Gonzales [...] Past Medical History: Diagnosis Date Angina pectoris ([facility]) Anxiety Arrhythmia A-fib Asthma CAD (coronary artery disease) Cerebral artery occlusion with cerebral infarction ([facility]) COPD (chronic obstructive pulmonary disease) ([facility]) Depression WATTS (dyspnea on exertion) Fatigue GERD (gastroesophageal reflux disease) History of cardioversion 05/07/2016 Successful conversion of a-fib to SR History of left heart catheterization 05/07/2016 60% stenosis right posterior descending, patent stents in prox, mid & distal RCA, patent stentsin med LCx. Findings unchanged from previous study. 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 group home current use of antiarrhythmic drug group home current use of anticoagulant NSTEMI (non-ST elevated myocardial infarction) ([facility]) ([facility]) 12/2012 NSTEMI (non-ST elevated myocardial infarction) ([facility]) ([facility]) 05/2014 Obesity Old MD (myocardial infarction) HIPOLITO (obstructive sleep apnea) HIPOLITO on CPAP PAF (paroxysmal atrial fibrillation) ([facility]) Rheumatoid arthritis(714.0) ([facility]) ST segment elevation myocardial infarction (STEMI) of anterolateral wall, subsequent episode of care ([facility]) ([facility]) TIA (transient ischemic attack) Social History: [...] sleep medicine. 2. Atherosclerotic heart disease of [place] coronary artery with other forms of angina [...] sleep, prn with me documented in this [facility]12-18-2023 Instructions* Patient Instructions* Marii Kumar Rai, MA - 05/10/2023 10:30 AM EST YOUR APPOINTMENT TODAY WAS WITH THE [facility], COPD CLINIC, PULMONARY AND SLEEP MEDICINE OFFICE. PLEASE CALL OUR OFFICE AT [phone] IF YOU HAVE NOT RECEIVED YOUR TEST [...] to make improvements. COVID-19 VACCINATION INFORMATION: PH. [phone] HEALTH.ORG/CORONAVIRUS/VACCINE [facility] Central Scheduling [phone] [facility] Sleep Scheduling [phone] documented in this [facility]11-22-2023 Telephone encounter Note* Telephone Encounter - Renate Duke RN - 04/14/2023 9:52 AM EST PC to patient with lab results. He states his abdominal discomfort has improved on lower dose of Ranexa. Will update N[id number] Miscellaneous Notes* Telephone Encounter - Renate Duke [...] lower dose of ranexa. documented in this [place] [address]-21-2023 Telephone encounter Note* Telephone Encounter - DANIELLE Whitehead CNP - 04/13/2023 4:27 PM EST PC to patient, BMP stable, attempted to call patient, but no answer, no voice mail. Please let him know BMP stable, Please ask if abdominal pain is better on lower dose of ranexa. [place] [id number] Telephone encounter Note* Telephone Encounter - Trena Pratt - 04/08/2023 3:35 PM EST Patient requesting refill on metoprolol tartrate 25 MG BID to be sent to [facility]. [id number] Miscellaneous Notes* Telephone Encounter - Trena Pratt - 04/08/2023 3:35 PM EST Patient requesting refill on metoprolol tartrate 25 MG BID to be sent to [facility]. * Telephone Encounter - Renate Duke RN - 04/01/2023 4:26 PM EST Please review and refuse if appropriate. Med stopped at discharge in November documented in this [place] [address]-16-2023 History of Present illness Narrative* DANIELLE Whitehead CNP - 04/08/2023 10:00 AM EST [facility] Cardiology [facility] [address] [facility] [address] Dept: [phone] Dept Loc: [phone] Visit type: Established : 1955 Chief Complaint: [...] management advised HTN (hypertension) Hyperlipidemia Hypertension Hypokalemia group home current use of antiarrhythmic drug group home current use of anticoagulant NSTEMI (non-ST elevated myocardial infarction) ([facility]) ([facility]) 12/2012 NSTEMI (non-ST elevated myocardial infarction) ([facility]) ([facility]) 05/2014 Obesity Old MD (myocardial infarction) HIPOLITO (obstructive sleep apnea) HIPOLITO on CPAP PAF (paroxysmal atrial fibrillation) ([facility]) Rheumatoid arthritis(714.0) ([facility]) ST segment elevation myocardial infarction (STEMI) of anterolateral wall, subsequent episode of care ([facility]) ([facility]) TIA (transient ischemic attack) Past Surgical History Past Surgical History: Procedure Laterality Date CAPSULOTOMY, HAND 05/07/2016 CARDIAC CATHETERIZATION N/A 03/01/2023 Performed by Zoie Gonzales MD at [facility] Cardiac Cath/EP Lab CARDIAC PROCEDURE [...] CORONARY ANGIOPLASTY WITH STENT PLACEMENT Left 12/01/2021 APPLICATION SUPPORT LEAD/PCI to prox RCA CORONARY ANGIOPLASTY WITH STENT [...] abnormalities. Last cardiac catheterization: 03/01/2023 Conclusion Impression: APPLICATION SUPPORT LEAD of mid RCA that was previously treated [...] added Assessment and Plan: 1. CAD in [place] artery: with stable angina: Secondary to abdominal [...] at thistime. 4. PAF (paroxysmal atrial fibrillation) ([facility]) Continue amiodarone 200 mg daily. He [...] follow-up in 2 months. documented in this [facility]11-16-2023 Instructions* Patient Instructions* DANIELLE Whitehead CNP - 04/08/2023 10:00 AM EST Reduce Ranexa to 500 mg twice a day. 2. Increase metoprolol to 50 mg in the am,( 2 tablets ) and 25 mg in the pm. Use SL NTG prior to exertional activities. Call with an update on abdominal cramping documented in this [facility]11-09-2023 Telephone encounter Note* Telephone Encounter - Renate Duke RN - 04/01/2023 4:26 PM EST Please review and refuse if appropriate. Med stopped at discharge in November [id number] History of Present illness Narrative* Chris Boyce MD - 03/29/2023 1:15 PM EST [facility] [place] [facility] [place] ESTABLISHED PATIENT VISIT [...] first few nights after starting PAP therapy. [place] his sleep qualitywas much better. However, subsequently [...] left heart cath on 03/01/2023 which demonstrated APPLICATION SUPPORT LEAD of the RCA, 10 to 40% stenosis of the circumflex, 10% stenosis of LAD. He was started on Ranexa for his chest pain which was subsequently increased to 1000 twice daily. Continues on torsemide daily. [place] Sleepiness Scale Sitting and reading: Slight chance [...] Past Medical History: Diagnosis Date Angina pectoris ([facility]) Anxiety Arrhythmia A-fib Asthma CAD (coronary artery disease) Cerebral artery occlusion with cerebral infarction ([facility]) COPD (chronic obstructive pulmonary disease) ([facility]) Depression WATTS (dyspnea on exertion) Fatigue GERD (gastroesophageal reflux disease) History of cardioversion 05/07/2016 Successful conversion of a-fib to SR History of left heart catheterization 05/07/2016 60% stenosis right posterior descending, patent stents in prox, mid & distal RCA, patent stentsin med LCx. Findings unchanged from previous study. 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) ([facility]) 12/2012 NSTEMI (non-ST elevated myocardial infarction) ([facility]) ([facility]) 05/2014 Obesity Old MD (myocardial infarction) HIPOLITO (obstructive sleep apnea) HIPOLITO on CPAP PAF (paroxysmal atrial fibrillation) ([facility]) Rheumatoid arthritis(714.0) ([facility]) ST segment elevation myocardial infarction (STEMI) of anterolateral wall, subsequent episode of care ([facility]) ([facility]) TIA (transient ischemic attack) Past Surgical History Past Surgical History: Procedure Laterality Date CAPSULOTOMY, HAND 05/07/2016 CARDIAC CATHETERIZATION N/A 03/01/2023 Performed by Zoie Gonzales MD at [facility] Cardiac Cath/EP Lab CARDIAC PROCEDURE [...] CORONARY ANGIOPLASTY WITH STENT PLACEMENT Left 12/01/2021 APPLICATION SUPPORT LEAD/PCI to prox RCA CORONARY ANGIOPLASTY WITH STENT [...] Narrative Patient Name: SHANNON OLSON : 1955 [facility]#: [id number] Exam Date/Time: 12/07/2022 08:42 Procedure: XR CHEST [...] Results: No results found for: FEV1, FVC, PWJ4LGI, TLC, DLCO No results found for: FEV1, FVC, CUW5AHX, TLC, DLCO documented in this [facility]11-06-2023 Instructions* Patient Instructions* Tennille Escalante MA - 03/29/2023 1:15 PM EST YOUR APPOINTMENT TODAY WAS WITH THE [facility], COPD CLINIC, PULMONARY AND SLEEP MEDICINE OFFICE. PLEASE CALL OUR OFFICE AT [phone] IF YOU HAVE NOT RECEIVED YOUR TEST [...] to make improvements. COVID-19 VACCINATION INFORMATION: PH. [phone] HEALTH.ORG/CORONAVIRUS/VACCINE [facility] Central Scheduling [phone] [facility] Sleep Scheduling [phone] documented in this [facility]10-26-2023 History of Present illness Narrative* France Spain, RENT AND HOUSING INVESTIGATOR - CONTROL SYSTEM MANAGER - 03/18/2023 11:00 AM EDT [facility] Cardiology [facility] [address] [facility] [address] Dept: [phone] Dept Loc: [phone] Visit type: Established : 1955 Chief Complaint: [...] Past Medical History: Diagnosis Date Angina pectoris ([facility]) Anxiety Arrhythmia A-fib Asthma CAD (coronary artery disease) Cerebral artery occlusion with cerebral infarction ([facility]) COPD (chronic obstructive pulmonary disease) ([facility]) Depression WATTS (dyspnea on exertion) Fatigue GERD (gastroesophageal reflux disease) History of cardioversion 05/07/2016 Successful conversion of a-fib to SR History of left heart catheterization 05/07/2016 60% stenosis right posterior descending, patent stents in prox, mid & distal RCA, patent stentsin med LCx. Findings unchanged from previous study. 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 group home current use of antiarrhythmic drug group home current use of anticoagulant NSTEMI (non-ST elevated myocardial infarction) ([facility]) ([facility]) 12/2012 NSTEMI (non-ST elevated myocardial infarction) ([facility]) ([facility]) 05/2014 Obesity Old MD (myocardial infarction) HIPOLITO (obstructive sleep apnea) HIPOLITO on CPAP PAF (paroxysmal atrial fibrillation) ([facility]) Rheumatoid arthritis(714.0) ([facility]) ST segment elevation myocardial infarction (STEMI) of anterolateral wall, subsequent episode of care ([facility]) ([facility]) TIA (transient ischemic attack) Past Surgical History Past Surgical History: Procedure Laterality Date CAPSULOTOMY, HAND 05/07/2016 CARDIAC CATHETERIZATION N/A 03/01/2023 Performed by Zoie Gonzales MD at [facility] Cardiac Cath/EP Lab CARDIAC PROCEDURE [...] CORONARY ANGIOPLASTY WITH STENT PLACEMENT Left 12/01/2021 APPLICATION SUPPORT LEAD/PCI to prox RCA CORONARY ANGIOPLASTY WITH STENT [...] abnormalities. Last cardiac catheterization: 03/01/2023 Conclusion Impression: APPLICATION SUPPORT LEAD of mid RCA that was previously treated [...] added Assessment and Plan: 1. CAD in [place] artery Status post left heart cath on March 01, 2023. This demonstrated occlusion of his right coronary artery that was previously stented. He had now developed left to right collateral circulation. [id number] mg twice a day was added. This [...] 3 weeks. 4. PAF (paroxysmal atrial fibrillation) ([facility]) For some reason he thought he was [...] in approximately 2 weeks. documented in this [facility]10-26-2023 Instructions* Patient Instructions* DANIELLE Whitehead CNP - 03/18/2023 11:00 AM EDT Resume Amiodarone 200 mg daily Increase ranexa to 1000 mg twice day Call me with the date of the upper GI. documented in this [facility]10-09-2023 Hospital Discharge instructions* Discharge Instructions* Amelia Gilbert RN - 03/01/2023 10:32 AM EDT Call your doctor with any medication questions or if you notice any side effects from your medications. If you are unable to fill your medications, please call your Eyeglass Lens Cutter immediately. The office number is located with [...] be gone by tomorrow. documented in this [facility]10-09-2023 Note* Pre-Sedation Documentation - Gabino Louie DO [...] and proceed to administer sedation as planned. [employer] Phone: [phone] Note* Pre-Sedation Documentation - Gabino Louie DO [...] and proceed to administer sedation as planned. [employer] Phone: [phone] Miscellaneous Notes* Pre-Sedation Documentation - Gabino Louie DO - [...] administer sedation as planned. documented in this [facility]10-02-2023 History of Present illness Narrative* Zoie Gonzales MD - 02/22/2023 1:30 PM EDT [facility] Cardiology [facility] CARDIOLOGY [address] [place] [address] Dept: [phone] Dept Visit type: Established : 1955 Chief [...] Past Medical History: Diagnosis Date Angina pectoris ([facility]) Anxiety Arrhythmia A-fib Asthma CAD (coronary artery disease) Cerebral artery occlusion with cerebral infarction ([facility]) COPD (chronic obstructive pulmonary disease) ([facility]) Depression WATTS (dyspnea on exertion) Fatigue GERD (gastroesophageal reflux disease) History of cardioversion 05/07/2016 Successful conversion of a-fib to SR History of left heart catheterization 05/07/2016 60% stenosis right posterior descending, patent stents in prox, mid & distal RCA, patent stentsin med LCx. Findings unchanged from previous study. 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) ([facility]) 12/2012 NSTEMI (non-ST elevated myocardial infarction) ([facility]) ([facility]) 05/2014 Obesity Old MD (myocardial infarction) HIPOLITO (obstructive sleep apnea) HIPOLITO on CPAP PAF (paroxysmal atrial fibrillation) ([facility]) Rheumatoid arthritis(714.0) ([facility]) ST segment elevation myocardial infarction (STEMI) of anterolateral wall, subsequent episode of care ([facility]) ([facility]) TIA (transient ischemic attack) Past Surgical [...] CORONARY ANGIOPLASTY WITH STENT PLACEMENT Left 12/01/2021 APPLICATION SUPPORT LEAD/PCI to prox RCA CORONARY ANGIOPLASTY WITH STENT [...] 01-22- immediately., Disp: 25 tablet, Rfl: 3 pantoprazole [...] 42 (A) 01/29/2023 CREATININE 1.57 (H) 12/30/2022 @[facility]@ Lab Results Component Value Date CHLPL 144 [...] and Plan: 1. Atherosclerotic heart disease of [place] coronary artery with other forms of angina pectoris ([facility]) 2. NSTEMI (non-ST elevated myocardial infarction) (CMS/HCC) ([facility]) 3. Hypertension, unspecified type 4. PAF (paroxysmal atrial fibrillation) ([facility]) My summary and recommendation today is [...] with an outpatient cath. documented in this encounterSCleveland Clinic Euclid HospitalUcbtux20-33-7401 Telephone encounter Note* Telephone Encounter - Renate Duke RN - 02/10/2023 12:20 PM EDT PC to pharmacy. New Rx was sent in yesterday for patient to take two 60 mg tablets daily but quantity sent was only 90. Ok to dispense 180 tablets [facility] CenterTjgsno03-07-5280 Miscellaneous Notes* Telephone Encounter - Renate Duke RN - 02/10/2023 12:20 PM EDT PC to pharmacy. New Rx was sent in yesterday for patient to take two 60 mg tablets daily but quantity sent was only 90. Ok to dispense 180 tablets * Telephone Encounter - Tatum Alvarado - 02/10/2023 11:29 AM EDT [facility] pharmacy requesting clarification on Imdur [phone] * Telephone Encounter - Renate Duke RN [...] call in please advise documented in this encounterSCleveland Clinic Euclid HospitalPyumik55-79-9328 Telephone encounter Note* Telephone Encounter - Tatum Alvarado - 02/10/2023 11:29 AM EDT [facility] pharmacy requesting clarification on Imdur [phone] [facility] CenterEmomgi16-51-0184 Telephone encounter Note* Telephone Encounter - Renate Duke RN - 02/09/2023 4:59 PM EDT PC to patient with medication recommendations. He verbalized understanding [facility] CenterJrzbgy43-06-6330 Telephone encounter Note* Telephone Encounter - DANIELLE Oscar CNP - 02/09/2023 4:21 PM EDT Thanks for the update. Have him increase Imdur to 120 mg once daily and see if any improvement. Monitor blood pressure and let us know if too low. [facility] CenterCdetdd97-89-9182 Telephone encounter Note* Telephone Encounter - Jenniffer Foreign - 02/09/2023 2:03 PM EDT Patient stated he has not noticed much of a difference being on the protonix not sure if just not been on it long enough and just wanted to give a call in please advise [facility] CenterOfvbgk97-82-2639 History of Present illness Narrative* Kate ConnellyDANIELLE liriano CNP - 02/02/2023 8:30 AM EDT Images from the original note were not included. [facility] Cardiovascular Medicine [facility] [address] [facility] [address] Dept: [phone] Dept Loc: [phone] DATE of SERVICE: 02/02/2023 DATE of : [...] overload at this juncture 2. 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 L-R collaterals noted and [...] management advised HTN (hypertension) Hyperlipidemia Hypertension Hypokalemia group home current use of antiarrhythmic drug group home current use of anticoagulant NSTEMI (non-ST elevated myocardial infarction) ([facility]) ([facility]) 12/2012 NSTEMI (non-ST elevated myocardial infarction) ([facility]) ([facility]) 05/2014 Obesity Old MD (myocardial infarction) HIPOLITO (obstructive sleep apnea) HIPOLITO on CPAP PAF (paroxysmal atrial fibrillation) ([facility]) ([facility]) Rheumatoid arthritis(714.0) ([facility]) ST segment elevation myocardial infarction (STEMI) of anterolateral wall, subsequent episode of care ([facility]) ([facility]) TIA (transient ischemic attack) Past Surgical [...] CORONARY ANGIOPLASTY WITH STENT PLACEMENT Left 12/01/2021 APPLICATION SUPPORT LEAD/PCI to prox RCA CORONARY ANGIOPLASTY WITH STENT [...] QT Interval 385 QTC Interval 445 P [place] 35 QRS [place] 25 T Wave [place] 19 OR Interval 174 Impression Sinus rhythm Inferior infarct, [...] to revascularise the mid RCA instent restenosis APPLICATION SUPPORT LEAD. IMPRESSIONS: 1. Patent stent in proximal LAD. 2. Patent stent in proximal-mid LCx. 3. Mid RCA instent restenosis with APPLICATION SUPPORT LEAD and left to right collaterals. 4. Unsuccessful attempt to revascularize mid RCA instent restenosis APPLICATION SUPPORT LEAD. Guidewire was passed across the occlusion and [...] access care. 5. Follow up with primary condenser setter as outpatient in one week. Kate Pelaez, MSN, CONTROL SYSTEM MANAGER-, [facility] Cardiology-[address] [address] p [phone] f [phone] [email or web address] documented in this [facility]09-08-2023 Telephone encounter Note* Telephone Encounter - Tatum Alvarado - 01/29/2023 1:49 PM EDT Patient scheduled 8 :30 am [facility] CenterKoyhre77-53-4038 Miscellaneous Notes* Telephone Encounter - Tatum Alvarado - 01/29/2023 1:49 PM EDT Patient scheduled Danisha 8 :30 am * Telephone Encounter - [...] 9:39 AM EDT Lab order faxed to [facility] [phone]. * Telephone Encounter - DANIELLE Whitehead CNP [...] Will start with Stat CBC and BMPat [facility] tomorrow. Will call [...] discomfort with little exertion. documented in this encounterSCleveland Clinic Euclid HospitalBaxscd30-53-0320 Telephone encounter Note* Telephone Encounter - DANIELLE [...] is not fast. Last weight was 292lbs. [facility] CenterGretnm77-82-3456 Telephone encounter Note* Telephone Encounter - Trena Pratt - 01/29/2023 10:58 AM EDT Labs received,place on desk and gave to MA to enter. [facility] CenterZawqoq62-44-4454 Telephone encounter Note* Telephone Encounter - DANIELLE Whitehead CNP - 01/28/2023 5:41 PM EDT PC to patient, still do not have lab results, He feels the same, and is doing ok , if he does not push himself. I will have office call again tomorrow, and page me with the results. [facility] CenterGdovow35-94-8980 Telephone encounter Note* Telephone Encounter - Renate Duke RN - 01/27/2023 2:53 PM EDT [facility] with you 12/24/22 [facility] CenterJxweea68-36-8615 Miscellaneous Notes* Telephone Encounter - Renate Duke RN - 01/27/2023 2:53 PM EDT [facility] with you 12/24/22 documented in this encounterSCleveland Clinic Euclid HospitalPjthge59-44-1049 Telephone encounter Note* Telephone Encounter - Trena Pratt - 01/27/2023 9:39 AM EDT Lab order faxed to [facility] [phone]. [facility] CenterRhkzla52-80-5665 Telephone encounter Note* Telephone Encounter - DANIELLE [...] Will start with Stat CBC and BMPat [facility] tomorrow. Will call once results are back. [facility] CenterZqbouq13-45-8669 Telephone encounter Note* Telephone Encounter - Renate [...] morning. Will have NALDO review for recommendations [facility] CenterVdehxn31-27-6042 Telephone encounter Note* Telephone Encounter - Trena Pratt - 01/26/2023 1:45 PM EDT Patient has not been feeling quit right lately since he's had to start on strong antibiotics. He isfeeling fatigued and light chest discomfort with little exertion. [facility] CenterFnmkmi15-72-9019 Telephone encounter Note* Telephone Encounter - DANIELLE Whitehead CNP - 01/05/2023 12:46 PM EDT Thanks for the update, probably best to avoid further complications. [facility] CenterKlhdfp35-30-0767 Miscellaneous Notes* Telephone Encounter - DANIELLE Whitehead CNP - 01/05/2023 12:46 PM EDT Thanks for the update, probably best to avoid further complications. * Telephone Encounter - Renate Duke RN - 01/04/2023 4:25 PM EDT PC to patient. He went to [facility] Wednesday and was given antibiotics for this. [...] with PCP on Wednesday. documented in this encounterSCleveland Clinic Euclid HospitalQpujbp84-23-9511 Telephone encounter Note* Telephone Encounter - Renate Duke RN - 01/04/2023 4:25 PM EDT PC to patient. He went to [facility] Wednesday and was given antibiotics for this. He saw the doctor today and it was decided to make a small incicion to drain it. Patient states numerous blood clots were removed. He did not have stop the Eliquis. Will update provider [facility] CenterGjaepm85-03-8039 Telephone encounter Note* Telephone Encounter - Trena Pratt - 01/04/2023 3:00 PM EDT Patient called stating he had surgery to remove blood clots. He wanted to update Dr. Bui. [facility] CenterZnmbhx12-25-8976 Telephone encounter Note* Telephone Encounter - DANIELLE [...] He will follow-up with PCP on Wednesday. [facility] CenterQufrtk26-04-7213 Hospital Discharge instructions Additional Instructions Please wear your Efrain wrap along your right cole to compress the hematoma and prevent further swelling. Continue to ice the area for the next 3 to 4 days and then change to warm compresses to help dissolve any remaining blood. If you have any further concerns please return for repeat evaluationWJ.W. [facility] Work Phone: [phone] 138-992007-18-2023 Nurse Note* Nakita Zaragoza RN - 12/08/2022 4:28 PM EDT Education provided to patient on discharge instructions, how to followup, lab work that needs to becompleted, and new medications. Medication list reviewed with patient. IV removed from patient. All questions and concerns answered at this time. Patient states he will have a ride around 5pm [facility] CenterMhukjy14-97-0519 Nurse Note* Nakita Zaragoza RN - 12/08/2022 4:28 PM EDT Education provided to patient on discharge instructions, how to followup, lab work that needs to becompleted, and new medications. Medication list reviewed with patient. IV removed from patient. All questions and concerns answered at this time. Patient states he will have a ride around 5pm documented in this encounterSCleveland Clinic Euclid HospitalQbqhrp04-22-5116 History of Present illness Narrative* Javier Benton MD - 12/08/2022 2:41 PM EDT [facility] Nephrology Progress Note Subjective: 67 [...] follow the patient along. Javier Benton MD [facility] Office: [phone] * DANIELLE Whitehead CNP - 12/08/2022 12:10 [...] included. Hospitalist Progress Note 12/08/2022 9:09 AM [phone]: Please page me for patient care issues. [phone]: Please page IMS night Hospitalist for any [...] Past Medical History: Diagnosis Date Angina pectoris ([facility]) Anxiety Arrhythmia A-fib Asthma CAD (coronary artery disease) Cerebral artery occlusion with cerebral infarction ([facility]) COPD (chronic obstructive pulmonary disease) ([facility]) Depression WATTS (dyspnea on exertion) Fatigue GERD (gastroesophageal reflux disease) History of cardioversion 05/07/2016 Successful conversion of a-fib to SR History of left heart catheterization 05/07/2016 60% stenosis right posterior descending, patent stents in prox, mid & distal RCA, patent stentsin med LCx. Findings unchanged from previous study. 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 group home current use of antiarrhythmic drug group home current use of anticoagulant NSTEMI (non-ST elevated myocardial infarction) (CMS/HCC) ([facility]) 12/2012 NSTEMI (non-ST elevated myocardial infarction) (CMS/HCC) ([facility]) 05/2014 Obesity Old MD (myocardial infarction) HIPOLITO (obstructive sleep apnea) HIPOLITO on CPAP PAF (paroxysmal atrial fibrillation) ([facility]) ([facility]) Rheumatoid arthritis(714.0) ([facility]) ST segment elevation myocardial infarction (STEMI) of anterolateral wall, subsequent episode of care ([facility]) ([facility]) TIA (transient ischemic attack) Adult diet Regular; No Added Salt (3-4 gm) @[email or web address]@ Medications: amiodarone, 200 mg, Oral, Daily apixaban, [...] team DC home today. Patients family- Reynold [phone]- was informed about all work up and [...] was made to ensureaccuracy; however, inadvertent computerized water technician errors may be present. Manuel Edgar MD Division of Hospitalist Medicine [facility] PAGER: Epic chat * Alayna Arthur - 12/08/2022 7:52 AM EDT .Nutrition rescreen completed. Chart reviewed. Patient to be monitored and followed by the diet denture laboratory technician. TAZ Murguia * DANIELLE Quinn CNP - 12/07/2022 10:10 AM EDT [facility] [place] [facility] [place]Electrophysiology Progress Note Reason for consult: Chest pain HPI / Interval History: Shannon Olson is a 67 y[address] to Dr. Zoie Gonzales with hx of complex CAD and prior stenting ofthe LAD, Lcx, and RCA. His last LHC was 12/01/21 and at that time was noted to have midRCA instent restenosis with APPLICATION SUPPORT LEAD and L->R collaterals and had unsuccessful attempt [...] down from 1.53). He was transferred from [facility] here 12/06/22 for chest pain. There, his [...] He states that whenhe initially presented to [facility] that he had intense chest tightness rated [...] setting of known complex CAD with RCA APPLICATION SUPPORT LEAD and multiple prior PCI: Stable, no angina now. EKG reviewed from today and unchanged from previous. No ischemic changes. Troponin I here negative x2. However, Hs Troponins at [place] were elevated but insignificant (reviewed with Dr. [...] Sitting Pulse: [phone] Resp: 19 Temp: 37.6 C (99.6 F) 36.6 [...] to revascularise the mid RCA instent restenosis APPLICATION SUPPORT LEAD. IMPRESSIONS: 1. Patent stent in proximal LAD. 2. Patent stent in proximal-mid LCx. 3. Mid RCA instent restenosis with APPLICATION SUPPORT LEAD and left to right collaterals. 4. Unsuccessful attempt to revascularize mid RCA instent restenosis APPLICATION SUPPORT LEAD. Guidewire was passed across the occlusion and [...] access care. 5. Follow up with primary condenser setter as outpatient in one week. Telemetry findings reviewed: NSR with occasional PVCs DANIELLE Quinn CNP Date Of Service 12/07/2022 * Manuel Edgar MD - 12/07/2022 8:21 AM EDT Images from the original note were not included. Hospitalist Progress Note 12/07/2022 8:21 AM [phone]: Please page me for patient care issues. [phone]: Please page IMS night Hospitalist for any issues. Subjective: Admit Date: 12/06/2022 PCP: Finn Ferrell MD Room#: 1C131/131 A Interval History: Patient seen and examined [...] IIIwith baseline creatinine of 1.5 Presented to [facility] following chest pain. Patient was complaining [...] hemoglobin 11.9 High sensitive troponin done at [facility] was 175 Past medical history : Past Medical History: Diagnosis Date Angina pectoris (HCC) Anxiety Arrhythmia A-fib Asthma CAD (coronary artery disease) Cerebral artery occlusion with cerebral infarction (HCC) COPD (chronic obstructive pulmonary disease) ([facility]) Depression WATTS (dyspnea on exertion) Fatigue GERD (gastroesophageal reflux disease) History of cardioversion 05/07/2016 Successful conversion of a-fib to SR History of left heart catheterization 05/07/2016 60% stenosis right posterior descending, patent stents in prox, mid & distal RCA, patent stentsin med LCx. Findings unchanged from previous study. 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) ([facility]) 12/2012 NSTEMI (non-ST elevated myocardial infarction) ([facility]) ([facility]) 05/2014 Obesity Old MD (myocardial infarction) HIPOLITO (obstructive sleep apnea) HIPOLITO on CPAP PAF (paroxysmal atrial fibrillation) ([facility]) ([facility]) Rheumatoid arthritis(714.0) ([facility]) ST segment elevation myocardial infarction (STEMI) of anterolateral wall, subsequent episode of care ([facility]) ([facility]) TIA (transient ischemic attack) Adult diet Regular; No Added Salt (3-4 gm) @[id number]@ Medications: amiodarone, 200 mg, Oral, Daily amLODIPine, [...] Extended Emergency Contact Information Primary Emergency Contact: JaylaHarvinder Relation: Relative Secondary Emergency Contact: Reynold Olson Mobile Relation: Brother Advance Directive: Full Code Discharge planning: NOTE: This report was transcribed using voice recognition software. Every effort was made to ensureaccuracy; however, inadvertent computerized water technician errors may be present. Manuel Edgar MD Division of Hospitalist Medicine [employer] PAGER: Epic chat Addendum Message from cardiology nurse practitioner-Dr. Gonzales wanted to continue patient on Aldactone/torsemide Plan Nephrology team following BMP panel in a.m. documented in this [facility]07-18-2023 Hospital course Narrative* Manuel Edgar MD - 12/08/2022 9:35 AM EDT Discharge Summary Shannon Olson : 1955 ADMIT DATE: 12/06/2022 DISCHARGE DATE: 12/08/2022 PRIMARY CARE PHYSICIAN: iFnn Ferrell VISIT STATUS: Admission CODE STATUS: Full [...] IIIwith baseline creatinine of 1.5 Presented to [facility] following chest pain.Patient was complaining of dry cough for last 3 days, and 1 episode of fever spike during hospitalization stay. Work-up during this admission showedpotassium of 4.8, LFT panel normal, creatinine of 2.1, hemoglobin of 11.9, high sensitive troponin done at [facility] was 175, patient was transferred to [facility] for further evaluation. Repeat EKG [...] Complexity: follow up within 7-14 calendar days (17871) [] Severe Complexity: follow up within 7 calendar days (78788) FOLLOW UP TESTING, PENDING RESULTS OR REFERRALS AT TRANSITIONAL CARE VISIT: [] Yes [] No PENDING STUDIES: DISPOSITION: Home FACILITY/HOME CARE AGENCY NAME: Follow up with MD Tamara Childers E [address] [address] Schedule an appointment as soon as possible for a visit on 12/11/2022 CBC, BMP panel on 12/11/2022 and 12/14/2022. Zoie Gonzales MD [address] [facility] [address] Schedule an appointment as soon as possible for a visit in 2 week(s) Javier Benton MD [address] [facility] [place] [address] Schedule an appointment as soon as possible for a visit in 1 week(s) Chris Boyce MD [address] [facility] [address] [facility] [address] Follow up on 02/24/2023 INSTRUCTIONS TO MA/SW: [...] MD 12/08/2022, 9:35 AM documented in this [facility]07-17-2023 Note* Care Coordination - Lore Florian RN - 12/07/2022 11:11 AM EDT Care Managment Initial Assessment Date: 12/07/2022 Patient Name: Shannno Olson : 1955 Patient Information Source of Information: Patient Cognition/Language: WFL - Within Functional Limits Permission given to speak with patient client representative/caregiver as indicated: Yes Confirmation of Payer [...] Yes [facility] Medication Management: Independent Transportation/Shopping: Independent Transportation [...] time. TCC to follow. Lore Florian RN [facility] CenterBkuldw38-17-2711 Note* Care Coordination - Lore Florian RN - 12/07/2022 11:11 AM EDT Care Managment Initial Assessment Date: 12/07/2022 Patient Name: Shannon Olson : 1955 Patient Information Source of Information: Patient Cognition/Language: WFL - Within Functional Limits Permission given to speak with patient client representative/caregiver as indicated: Yes Confirmation of Payer with patient/family: Yes Payer Name: medicare [place]: No Confirmation of Primary Care Physician: Confirmed [...] Daily Living Prescription Coverage: Yes Pharmacy Used: [facility] Medication Management: Independent Transportation/Shopping: Independent Transportation [...] time. TCC to follow. Lore Florian RN [facility] CenterFhaqun12-56-7468 Miscellaneous Notes* Care Coordination - Lore Holly RN - 12/07/2022 11:11 AM EDT Care Managment Initial Assessment Date: 12/07/2022 Patient Name: Shannon Olson : 1955 Patient Information Source of Information: Patient Cognition/Language: WFL - Within Functional Limits Permission given to speak with patient client representative/caregiver as indicated: Yes Confirmation of Payer [...] Yes [facility] Medication Management: Independent Transportation/Shopping: Independent Transportation [...] Thank you Javier Benton documented in this [facility]07-17-2023 Consult note* Javier Benton MD - 12/07/2022 10:52 AM EDTAssociated Order(s): IP CONSULT TO NEPHROLOGY [facility] Nephrology Consult Note Reason for [...] worsening chest pain was seen at the [place] ED found to have elevated troponins now transferred to [facility]. Currently patient has no chest pain. [...] management advised HTN (hypertension) Hyperlipidemia Hypertension Hypokalemia group home current use of antiarrhythmic drug group home current use of anticoagulant NSTEMI (non-ST elevated myocardial infarction) ([facility]) ([facility]) 12/2012 NSTEMI (non-ST elevated myocardial infarction) ([facility]) ([facility]) 05/2014 Obesity Old MD (myocardial infarction) HIPOLITO (obstructive sleep apnea) HIPOLITO on CPAP PAF (paroxysmal atrial fibrillation) ([facility]) ([facility]) Rheumatoid arthritis(714.0) ([facility]) ST segment elevation myocardial infarction (STEMI) of anterolateral wall, subsequent episode of care ([facility]) ([facility]) TIA (transient ischemic attack) Past Surgical [...] CORONARY ANGIOPLASTY WITH STENT PLACEMENT Left 12/01/2021 APPLICATION SUPPORT LEAD/PCI to prox RCA CORONARY ANGIOPLASTY WITH STENT PLACEMENT Left 10/2013 HPU to prox & mid RCA CORONARY ANGIOPLASTY [...] 1.2 ALKPHOS 76 CBC: Recent Labs 12/07/22 001 WBC 9.4 RBC 3.95* HGB 11.9* HCT [...] will follow closely with you Javier Benton [facility] [id number] Consult note* Javier Benton MD - 12/07/2022 10:52 AM EDTAssociated Order(s): IP CONSULT TO NEPHROLOGY [facility]ph[facility] Consult Note Reason for [...] worsening chest pain was seen at the [place] ED found to have elevated troponins now transferred to [facility]. Currently patient has no chest pain. [...] Past Medical History: Diagnosis Date Angina pectoris ([facility]) Anxiety Arrhythmia A-fib Asthma CAD (coronary artery disease) Cerebral artery occlusion with cerebral infarction ([facility]) COPD (chronic obstructive pulmonary disease) ([facility]) Depression WATTS (dyspnea on exertion) Fatigue GERD (gastroesophageal reflux disease) History of cardioversion 05/07/2016 Successful conversion of a-fib to SR History of left heart catheterization 05/07/2016 60% stenosis right posterior descending, patent stents in prox, mid & distal RCA, patent stentsin med LCx. Findings unchanged from previous study. 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) ([facility]) 12/2012 NSTEMI (non-ST elevated myocardial infarction) ([facility]) ([facility]) 05/2014 Obesity Old MD (myocardial infarction) HIPOLITO (obstructive sleep apnea) HIPOLITO on CPAP PAF (paroxysmal atrial fibrillation) ([facility]) ([facility]) Rheumatoid arthritis(714.0) ([facility]) ST segment elevation myocardial infarction (STEMI) of anterolateral wall, subsequent episode of care ([facility]) ([facility]) TIA (transient ischemic attack) Past Surgical [...] CORONARY ANGIOPLASTY WITH STENT PLACEMENT Left 12/01/2021 APPLICATION SUPPORT LEAD/PCI to prox RCA CORONARY ANGIOPLASTY WITH STENT [...] will follow closely with you Javier Benton [facility] * Satish Rascon MD - 12/06/2022 12:49 PM EDTAssociated Order(s): IP CONSULT TO CARDIOLOGY [facility] [place] Cardiology/ Electrophysiology Consult Note Reason for Consult/Chief Complaint: Chest pain History of Present Illness: Shannon Olson is a 67 y.o. male with known complex coronary artery disease presents with an episodeof rest pain. He just saw in office his embroidery finisher Dr. Gonzales 12/03/2022. Patient has history of [...] not improve with nitroglycerin. He presented to [facility]. While there high-sensitivity troponin was at 174 then 175 with the upper limit of normal being 80. He was then sent to [facility] for further evaluation. Presently he is pain-free. He denies any recent fevers and chills. His weight has been stable. He is in process of treating his sleep apnea. He is compliant with his medical therapy. Past Medical History: Past Medical History: Diagnosis Date Angina pectoris (HCC) Anxiety Arrhythmia A-fib Asthma CAD (coronary artery disease) Cerebral artery occlusion with cerebral infarction ([facility]) COPD (chronic obstructive pulmonary disease) (HCC) Depression WATTS (dyspnea on exertion) Fatigue GERD (gastroesophageal reflux disease) History of cardioversion 05/07/2016 Successful conversion of a-fib to SR History of left heart catheterization 05/07/2016 60% stenosis right posterior descending, patent stents in prox, mid & distal RCA, patent stentsin med LCx. Findings unchanged from previous study. 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) ([facility]) 12/2012 NSTEMI (non-ST elevated myocardial infarction) ([facility]) ([facility]) 05/2014 Obesity Old MD (myocardial infarction) HIPOLITO (obstructive sleep apnea) HIPOLITO on CPAP PAF (paroxysmal atrial fibrillation) ([facility]) ([facility]) Rheumatoid arthritis(714.0) ([facility]) ST segment elevation myocardial infarction (STEMI) of anterolateral wall, subsequent episode of care ([facility]) ([facility]) TIA (transient ischemic attack) Past Surgical [...] CORONARY ANGIOPLASTY WITH STENT PLACEMENT Left 12/01/2021 APPLICATION SUPPORT LEAD/PCI to prox RCA CORONARY ANGIOPLASTY WITH STENT [...] resp. rate 18, SpO2 97 %. @IODETAILS@ @[id number]@ Physical Exam Laboratory Tests: @[id number](WBC:5,HGB:5,HCT:5,MCV:5,PLT:5)@ Lab Results Component Value Date GLUCOSE 82 [...] continue antianginals. He will naturally continue his beta- mg twice daily. Further recs dependent upon [...] DATE of SERVICE: 12/06/2022 documented in this [facility]07-17-2023 History of Present illness Narrative* Chris Boyce MD - 12/07/2022 10:39 AM EDT Images from the original note were not included. [facility] [place] ESTABLISHED PATIENT VISIT [...] patient stated thatthey are currently in the [facility]. If the patient is a minor, [...] and he says he hada heart attack Wednesday night. Currently tested positive [...] [facility] Patient counseled on importance of adherence [...] Past Medical History: Diagnosis Date Angina pectoris ([facility]) Anxiety Arrhythmia A-fib Asthma CAD (coronary artery disease) Cerebral artery occlusion with cerebral infarction ([facility]) COPD (chronic obstructive pulmonary disease) ([facility]) Depression WATTS (dyspnea on exertion) Fatigue GERD (gastroesophageal reflux disease) History of cardioversion 05/07/2016 Successful conversion of a-fib to SR History of left heart catheterization 05/07/2016 60% stenosis right posterior descending, patent stents in prox, mid & distal RCA, patent stentsin med LCx. Findings unchanged from previous study. 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 group home current use of antiarrhythmic drug group home current use of anticoagulant NSTEMI (non-ST elevated myocardial infarction) ([facility]) ([facility]) 12/2012 NSTEMI (non-ST elevated myocardial infarction) ([facility]) ([facility]) 05/2014 Obesity Old MD (myocardial infarction) HIPOLITO (obstructive sleep apnea) HIPOLITO on CPAP PAF (paroxysmal atrial fibrillation) ([facility]) ([facility]) Rheumatoid arthritis(714.0) ([facility]) ST segment elevation myocardial infarction (STEMI) of anterolateral wall, subsequent episode of care ([facility]) ([facility]) TIA (transient ischemic attack) Past Surgical [...] CORONARY ANGIOPLASTY WITH STENT PLACEMENT Left 12/01/2021 APPLICATION SUPPORT LEAD/PCI to prox RCA CORONARY ANGIOPLASTY WITH STENT PLACEMENT Left 10/2013 PHU to prox & mid RCA CORONARY ANGIOPLASTY WITH STENT PLACEMENT Left 12/2007 PHU to LAD CORONARY ANGIOPLASTY WITH STENT PLACEMENT Bilateral 03/17/2021 Puh to the Mid RCA, and the Distal [...] Daily, Terry Drew MD, 75 mg at 07/17/23 0902 ipratropium-albuterol (Duo-Neb) 0.5-2.5 mg/3 mL nebulizer solution [...] findings summarized in A/P. documented in this [facility]07-17-2023 Plan of care note* Care Plan - Javier Benton MD - 12/07/2022 8:43 AM EDT Consult noted. Full note to follow. Thank you Javier Benton [facility] [id number] Hospital Discharge instructions* Discharge Instr - Activity* Manuel Edgar MD - 12/07/2022 8:08 AM EDT As tolerated * Discharge Instr - Diet* Manuel Edgar MD - 12/07/2022 8:08 AM EDT Cardiac diet documented in this [facility]07-16-2023 Consult note* Satish Rascon MD - 12/06/2022 12:49 PM EDTAssociated Order(s): IP CONSULT TO CARDIOLOGY [facility] [place] Cardiology/ Electrophysiology Consult Note Reason for Consult/Chief Complaint: Chest pain History of Present Illness: Shannon Olson is a 67 y.o. male with known complex coronary artery disease presents with an episodeof rest pain. He just saw in office his embroidery finisher Dr. Gonzales 12/03/2022. Patient has history of [...] not improve with nitroglycerin. He presented to [facility]. While there high-sensitivity troponin was at 174 then 175 with the upper limit of normal being 80. He was then sent to [facility] for further evaluation. 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) ([facility]) 12/2012 NSTEMI (non-ST elevated myocardial infarction) ([facility]) ([facility]) 05/2014 Obesity Old MD (myocardial infarction) HIPOLITO (obstructive sleep apnea) HIPOLITO on CPAP PAF (paroxysmal atrial fibrillation) ([facility]) ([facility]) Rheumatoid arthritis(714.0) ([facility]) ST segment elevation myocardial infarction (STEMI) of anterolateral wall, subsequent episode of care ([facility]) ([facility]) TIA (transient ischemic attack) Past Surgical [...] CORONARY ANGIOPLASTY WITH STENT PLACEMENT Left 12/01/2021 APPLICATION SUPPORT LEAD/PCI to prox RCA CORONARY ANGIOPLASTY WITH STENT [...] resp. rate 18, SpO2 97 %. @IODETAILS@ @[id number]@ Physical Exam Laboratory Tests: @[id number](WBC:5,HGB:5,HCT:5,MCV:5,PLT:5)@ Lab Results Component Value Date GLUCOSE 82 [...] continue antianginals. He will naturally continue his beta-yfnjluc04 mg twice daily. Further recs dependent upon [...] Satish Rascon MD DATE of SERVICE: 12/06/2022 [employer] Work Phone: [phone] 239-294907-16-2023 History and physical note* Terry Drew MD [...] worsening chest pain was seen at the [place] ED found to have elevated troponins now transferred to [facility]. Currently patient has no chest pain. Past Medical History: Past Medical History: Diagnosis Date Angina pectoris (HCC) Anxiety Arrhythmia A-fib Asthma CAD (coronary artery disease) Cerebral artery occlusion with cerebral infarction ([facility]) COPD (chronic obstructive pulmonary disease) ([facility]) Depression WATTS (dyspnea on exertion) Fatigue GERD (gastroesophageal reflux disease) History of cardioversion 05/07/2016 Successful conversion of a-fib to SR History of left heart catheterization 05/07/2016 60% stenosis right posterior descending, patent stents in prox, mid & distal RCA, patent stentsin med LCx. Findings unchanged from previous study. 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 group home current use of antiarrhythmic drug group home current use of anticoagulant NSTEMI (non-ST elevated myocardial infarction) ([facility]) ([facility]) 12/2012 NSTEMI (non-ST elevated myocardial infarction) ([facility]) ([facility]) 05/2014 Obesity Old MD (myocardial infarction) HIPOLITO (obstructive sleep apnea) HIPOLITO on CPAP PAF (paroxysmal atrial fibrillation) ([facility]) ([facility]) Rheumatoid arthritis(714.0) ([facility]) ST segment elevation myocardial infarction (STEMI) of anterolateral wall, subsequent episode of care ([facility]) ([facility]) TIA (transient ischemic attack) Past Surgical [...] CORONARY ANGIOPLASTY WITH STENT PLACEMENT Left 12/01/2021 APPLICATION SUPPORT LEAD/PCI to prox RCA CORONARY ANGIOPLASTY WITH STENT [...] Status post left heart catheterization CAD in [place] artery Class 2 obesity in adult COPD (chronic obstructive pulmonary disease) ([facility]) HIPOLITO on CPAP CAD (coronary artery disease) PAF (paroxysmal atrial fibrillation) ([facility]) ([facility]) CKD NSTEMI patient with known coronary [...] signed by @MEMDNR@ on @TDNR@ at @NOWNR@ [facility] [id number] History and physical note* Terry Drew MD [...] worsening chest pain was seen at the [place] ED found to have elevated troponins now transferred to [facility]. Currently patient has no chest pain. Past Medical History: Past Medical History: Diagnosis Date Angina pectoris ([facility]) Anxiety Arrhythmia A-fib Asthma CAD (coronary artery disease) Cerebral artery occlusion with cerebral infarction ([facility]) COPD (chronic obstructive pulmonary disease) ([facility]) Depression WATTS (dyspnea on exertion) Fatigue GERD (gastroesophageal reflux disease) History of cardioversion 05/07/2016 Successful conversion of a-fib to SR History of left heart catheterization 05/07/2016 60% stenosis right posterior descending, patent stents in prox, mid & distal RCA, patent stentsin med LCx. Findings unchanged from previous study. 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) ([facility]) 12/2012 NSTEMI (non-ST elevated myocardial infarction) ([facility]) ([facility]) 05/2014 Obesity Old MD (myocardial infarction) HIPOLITO (obstructive sleep apnea) HIPOLITO on CPAP PAF (paroxysmal atrial fibrillation) ([facility]) ([facility]) Rheumatoid arthritis(714.0) ([facility]) ST segment elevation myocardial infarction (STEMI) of anterolateral wall, subsequent episode of care ([facility]) ([facility]) TIA (transient ischemic attack) Past Surgical [...] CORONARY ANGIOPLASTY WITH STENT PLACEMENT Left 12/01/2021 APPLICATION SUPPORT LEAD/PCI to prox RCA CORONARY ANGIOPLASTY WITH STENT [...] Status post left heart catheterization CAD in [place] artery Class 2 obesity in adult COPD (chronic obstructive pulmonary disease) ([facility]) HIPOLITO on CPAP CAD (coronary artery disease) PAF (paroxysmal atrial fibrillation) ([facility]) ([facility]) CKD NSTEMI patient with known coronary [...] on @TDNR@ at @NOWNR@ documented in this [facility]07-16-2023 History and physical note Author Henrietta Quinonez [facility] December 06, 2022 4:25am Note Date/Time December 06, 2022 12:4 2am [facility] Medical Records Department [address] [place] [address] H&P Exam - Hospitalist 12/06/22 0038 MR#: [id number] Acct: [id number] Name: SHANNON OLSON Rep #:[id number] : 1955 67 From: Henrietta Quinonez MD [...] HIPOLITO, Rheumatoid arthritis who presents to the [facility] ED on 12/06/22 with history of [...] ministered full-strength aspirin therapy and sublingual nitroglycerin. [facility] Medical History Anxiety Atrial fibrillation CAD (coronary artery disease) Cardiology follow-up encounter Chest pain Cholelithiasis with chronic cholecystitis COPD (chronic obstructive pulmonary disease) COPD (chronic obstructive pulmonary disease) Coronary atherosclerosis of [place] coronary vessel Depression Difficulty swallowing Dysphagia Epidermal [...] 92.5 H, Lymph % (Auto) 3.8 L, Moca % (Auto) 2.4, Eos % (Auto) 0.0, [...] HIPOLITO, Rheumatoid arthritis who presents to the [facility] ED on 12/06/22 with history of [...] 75 minutes. Charges/Coding Visit Charges Inpatient E&M: 40949 Init Hosp L3 Procedures Hospitalists Procedures: 41758 Advncd Care Plan 30 Min 12/06/22 0232 <Electronically signed by Henrietta Quinonez MD> Cosigner Signature (if applicable): CC: Dr. Henrietta Quinonez MD; Dr. Finn Ferrell MD~ Signed ADDENDUM by Dr. Henrietta Quinonez MD on 12/06/22 at 0425 Addendum Patient notified hospitalist of preference instead of admission to [facility] to be transferred to [facility] where he has had his prior cardiac care and stent placements. Case discussed by Hospitalist and ED with [facility] with [facility] Cardiology and Hospitalist service, awaiting bed. Visit Charges Office Visits / Consults: 45062 ED Visit; High/Threatening Severity (Patient being transferred instead of admitted[place] 44600/38051.) Procedures Hospitalists Procedures: 62035 Advncd Care Plan 30 Min (Patient being transferred instead [place] 538[address]/19474.) 12/06/22 0425<Electronically signed by Henrietta Quinonez MD> Cosigner Signature (if applicable): cc: Dr. Henrietta Quinonez MD; Dr. Finn Ferrell MD ~* Signed [facility] Work Phone: [phone]) 201-799607-16-2023 Discharge summary Author [facility] December 06, 2022 4:14am Note Date/Time December 05, 2022 10:4 8pm [facility] Medical Records Department [address] [place] [address] Emergency Department Summary 12/05/22 MR#: [id number] Acct: [id number] Name: SHANNON OLSON Rep #:[id number] : 1955 67 From: Kraig Clement PCP: Dr. Finn Ferrell MD Status:RE G ER Location: ED HPI History of Present Illness Chief Complaint: Chest Pain [facility] Medical History Anxiety Atrial fibrillation CAD (coronary artery disease) Cardiology follow-up encounter Chest pain Cholelithiasis with chronic cholecystitis COPD (chronic obstructive pulmonary disease) COPD (chronic obstructive pulmonary disease) Coronary atherosclerosis of [place] coronary vessel Depression Difficulty swallowing Dysphagia Epidermal [...] obtained from others: The patient's family Consults: aircraft riveter Dr. Santacruz, Internal medicine Dr. Quinonez, internal medicine [facility] Dr. Oneil ALL IMAGES (IF OBTAINED) [...] and confirmatory testing. Offer admission here at [facility] however he refused. He stated he like be admitted to [facility]. I communicated with the product blending supervisor Dr. Santacruz at [facility] who agreed the patient can be [...] 92.5 H Lymph % (Auto) 3.8 L Moca % (Auto) 2.4 Eos % (Auto) 0.0 [...] Disposition Disposition: Acute Care Hospital Discharge Location: [facility] What to do if you have Problems For any increased pain, shortness of breath, bleeding, nausea or vomiting, chestpain, or any unexpected problems, contact your Primary Care Provider. Call [facility] ([phone]) or report to the closest Emergency Room. Call 911 if necessary. 12/06/22 041 <Electronically signed by Kraig Bautista DO> Cosigner Signature (if applicable): CC: Dr. Finn Ferrell MD ~ Signed [facility] Work Phone: 1(364) 392-616107-13-2023 History of Present illness Narrative* Zoie Gonzales MD - 12/03/2022 2:30 PM EDT [facility] Cardiology [facility] CARDIOLOGY [address] [facility] [address] Dept: [phone] Dept Visit type: Established : 1955 Chief [...] Past Medical History: Diagnosis Date Angina pectoris ([facility]) Anxiety Arrhythmia A-fib Asthma CAD (coronary artery disease) Cerebral artery occlusion with cerebral infarction ([facility]) COPD (chronic obstructive pulmonary disease) ([facility]) Depression WATTS (dyspnea on exertion) Fatigue GERD (gastroesophageal reflux disease) History of cardioversion 05/07/2016 Successful conversion of a-fib to SR History of left heart catheterization 05/07/2016 60% stenosis right posterior descending, patent stents in prox, mid & distal RCA, patent stentsin med LCx. Findings unchanged from previous study. 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) ([facility]) 12/2012 NSTEMI (non-ST elevated myocardial infarction) ([facility]) ([facility]) 05/2014 Obesity Old MD (myocardial infarction) HIPOLITO (obstructive sleep apnea) HIPOLITO on CPAP PAF (paroxysmal atrial fibrillation) ([facility]) ([facility] Rheumatoid arthritis(714.0) ([facility]) ST segment elevation myocardial infarction (STEMI) of anterolateral wall, subsequent episode of care ([facility]) ([facility]) TIA (transient ischemic attack) Past Surgical [...] CORONARY ANGIOPLASTY WITH STENT PLACEMENT Left 12/01/2021 APPLICATION SUPPORT LEAD/PCI to prox RCA CORONARY ANGIOPLASTY WITH STENT [...] If no relief after 3 tablets, call -- immediately., Disp: 25 tablet, Rfl: 3 spironolactone [...] Final Assessment and Plan: 1. CAD in [place] artery 2. Primary hypertension 3. NSTEMI (non-ST elevated myocardial infarction) ([facility]) ([facility]) 4. PAF (paroxysmal atrial fibrillation) ([facility]) ([facility]) 5. Other hyperlipidemia My summary and [...] in about a month. documented in this [facility]06-21-2023 History of Present illness Narrative* Chris Boyce MD - 11/11/2022 10:15 AM EDT [facility] [place] [facility] ESTABLISHED PATIENT VISIT [...] Reports chronic excessive daytime somnolence. 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) Anxiety Arrhythmia A-fib Asthma CAD (coronary artery disease) Cerebral artery occlusion with cerebral infarction ([facility]) COPD (chronic obstructive pulmonary disease) ([facility]) Depression WATTS (dyspnea on exertion) Fatigue GERD (gastroesophageal reflux disease) History of cardioversion 05/07/2016 Successful conversion of a-fib to SR History of left heart catheterization 05/07/2016 60% stenosis right posterior descending, patent stents in prox, mid & distal RCA, patent stentsin med LCx. Findings unchanged from previous study. 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) ([facility]) 12/2012 NSTEMI (non-ST elevated myocardial infarction) ([facility]) ([facility]) 05/2014 Obesity Old MD (myocardial infarction) HIPOLITO (obstructive sleep apnea) HIPOLITO on CPAP PAF (paroxysmal atrial fibrillation) ([facility]) ([facility]) Rheumatoid arthritis(714.0) ([facility]) ST segment elevation myocardial infarction (STEMI) of anterolateral wall, subsequent episode of care ([facility]) ([facility]) TIA (transient ischemic attack) Past Surgical [...] CORONARY ANGIOPLASTY WITH STENT PLACEMENT Left 12/01/2021 APPLICATION SUPPORT LEAD/PCI to prox RCA CORONARY ANGIOPLASTY WITH STENT [...] Results: No results found for: FEV1, FVC, ORK3DXL, TLC, DLCO No results found for: FEV1, FVC, GLF2MOU, TLC, DLCO documented in this [facility]06-21-2023 Instructions* Patient Instructions* Marii Kumar Rai, MA - 11/11/2022 10:15 AM EDT YOUR APPOINTMENT TODAY WAS WITH THE [facility], COPD CLINIC, PULMONARY AND SLEEP MEDICINE OFFICE. PLEASE CALL OUR OFFICE AT [phone] IF YOU HAVE NOT RECEIVED YOUR TEST [...] to make improvements. COVID-19 VACCINATION INFORMATION: PH. [phone] [email or web address]/VACCINE [facility] Central Scheduling [phone] [facility] Sleep Scheduling [phone] documented in this [facility]05-24-2023 History of Present illness Narrative* DANIELLE Bernstein CNP - 10/14/2022 9:33 AM EDT error documented in this [facility]05-11-2023 History of Present illness Narrative* DANIELLE Bernstein CNP - 10/01/2022 2:01 PM EDT Patient will need outstanding BNP and D.Dimer completed. I have also added repeat BMP as he is now on higher dose lasix starting this week documented in this [facility]05-08-2023 History of Present illness Narrative* DANIELLE Bernstein CNP - 09/28/2022 1:30 PM EDT Images from the original note were not included. [facility] CARDIOLOGY [address] [address] Dept: [phone] Dept Loc: [phone] Visit type: Established : 1955 Reason for Visit: Edema (Shortness of breath./Lower ext edema following shoulder surgery ) Assessment and Plan 1. Coronary artery disease involving [place] coronary artery of [place] heart without angina pectoris -Stable. No anginal [...] in proximal-mid LCx. MidRCA instent restenosis with APPLICATION SUPPORT LEAD and left to right collaterals. There was unsuccessful attempt to revascularize mid RCA instent restenosis APPLICATION SUPPORT LEAD.Guidewire was passed across the occlusion and multiple [...] and eliquis. 06/2022: most recent visit with condenser setter: chest pain with activity that relived with [...] in chair with legs elevated some nights. [place] in legs is less in the AM [...] disease) Cerebral artery occlusion with cerebral infarction ([facility]) COPD (chronic obstructive pulmonary disease) ([facility]) Depression WATTS (dyspnea on exertion) Fatigue GERD (gastroesophageal reflux disease) History of cardioversion 05/07/2016 Successful conversion of a-fib to SR History of left heart catheterization 05/07/2016 60% stenosis right posterior descending, patent stents in prox, mid & distal RCA, patent stentsin med LCx. Findings unchanged from previous study. 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 group home current use of antiarrhythmic drug group home current use of anticoagulant NSTEMI (non-ST elevated myocardial infarction) ([facility]) ([facility]) 12/2012 NSTEMI (non-ST elevated myocardial infarction) ([facility]) ([facility]) 05/2014 Obesity Old MD (myocardial infarction) HIPOLITO (obstructive sleep apnea) HIPOLITO on CPAP PAF (paroxysmal atrial fibrillation) ([facility]) ([facility]) Rheumatoid arthritis(714.0) ([facility]) ST segment elevation myocardial infarction (STEMI) of anterolateral wall, subsequent episode of care ([facility]) ([facility]) TIA (transient ischemic attack) Social History [...] CORONARY ANGIOPLASTY WITH STENT PLACEMENT Left 12/01/2021 APPLICATION SUPPORT LEAD/PCI to prox RCA CORONARY ANGIOPLASTY WITH STENT [...] 12/01/2021 HGB 13.1 12/01/2021 MCV 90.3 12/01/2021 [id number] Score for Atrial Fibrillation Stroke Risk Risk Factors C CHF No, 0 H HTN Yes, 1 A2 Age >= 75 No, 0 D DM No, 0 S2 Prior Stroke/TIA Yes, 1 V Vascular Disease Yes, 1 A Age 65-74 Yes, 1 Sc Sex Male, 0 BRM2RB3-RCAo Score 4 Calculator: MFR0CM0-FGBt risk stratification score for estimation of stroke risk for nonvalvular atrial fibrillation in adults - UpToDate Atrial fibrillation in adults: Use of oral anticoagulants - UpToDate DANIELLE Bernstein CNP documented in this [facility]05-08-2023 Instructions* Patient Instructions* DANIELLE Bernstein CNP - [...] Call to schedule Echo. documented in this [facility]03-31-[address] Cornelius [facility] August 21, 2022 11:25am Note Date/Time August 21, 2022 11: 24am [facility] Medical Records Department [address] [place] [address] Discharge Summary 08/21/22 1122 MR#: [id number] Acct: [id number] Name: SHANONN OLSON Rep #:[id number] : 1955 66 From: James miller DO PCP: Care Physician,No Primary Status :ADM [facility] Location: [place] [id number] Providers Date of Admission: 08/20/22 Primary Care Physician: Whitney Primary Care Phys Consultations 08/20/22 11:44 Consult: [...] 90.5 H, Lymph % (Auto) 4.2 L, Moca % (Auto) 4.8, Eos % (Auto) 0.0, [...] Order can be placed): Home, Self Care 08/21/221124 <Electronically signed by James Cornelius DO> Cosigner Signature (if applicable): CC: Dr. James Cornelius DO; No Primary Care Physician~ Signed [facility] Work Phone: 1(635) 743-136103-31-[address] Cornelius [facility] August 21, 2022 11:22am Note Date/Time August 21, 2022 11: 22am [facility] Medical Records Department [address] [place] [address] Instructions for Home/Discharge Instructions 08/21/221121 MR#: [id number] Acct: [id number] Name: SHANNON OLSON Marlena Rep #:[id number] : 1955 66 From: James miller DO PCP: Care Physician,No Primary Status :ADM MYRTLE Discharge Instructions Follow Up Care Test Results: Test results from this visit will be discussed in further detail at your follow- up appointment, if applicable. Discharge Plan Admission Admit Date/Time: 08/20/22 11:41 Primary Reason for Your Visit: Left shoulder arthoscopy Attending Provider: James Cornelius Primary Care Provider: Care Physician,Whitney Primary Consulting Providers: Cooper Hayes ; Xiao [...] MD; No Primary Care Physician ~ Signed [facility] Work Phone: 1(864) 456-465903-31-[address] Medina [facility] August 21, 2022 10:13am Note Date/Time August 21, 2022 10: 13am [facility] Medical Records Department [address] [place] [address] Progress Note - Hospitalist 08/21/22 1009 MR#: [id number] Acct: [id number] Name: SHANNON OLSON Rep #:[id number] : 1955 66 From: Xiao Medina MD PCP: Care Physician,No Primary Status :ADM MYRTLE Location: MS3 [id number] Reason for Visit Reason for Visit: Diagnoses [...] 90.5 H, Lymph % (Auto) 4.2 L, Moca % (Auto) 4.8, Eos % (Auto) 0.0, [...] routine follow up with PCP and his condenser setter.Stable for d/c from hospitalist standpoint Xiao Medina MD Charges/Coding Visit Charges Inpatient E&M: 25827 Subs Hosp L2 08/21/22 1013 <Electronically signed by Xiao Mednia MD> Cosigner Signature (if applicable): CC: ~ Signed [facility] Work Phone: 1(318) 741-846003-31-[address] Cornelius [facility] August 21, 2022 7:19am Note Date/Time August 21, 2022 7:1 9am [facility] Medical Records Department [address] [place] [address] Progress Note - Orthopedic 08/21/22 0717 MR#: [id number] Acct: [id number] Name: SHANNON OLSON Rep #:[id number] : 1955 66 From: James miller DO PCP: Care Physician,No Primary Status :ADM MYRTLE Location: [address] Subjective Subjective Patient seen and examined. Pain [...] 90.5 H, Lymph % (Auto) 4.2 L, Moca % (Auto) 4.8, Eos % (Auto) 0.0, [...] Cosigner Signature (if applicable): CC: ~ Signed [facility] Work Phone: 1(953) 325-645403-30-[address] Medina [facility] August 20, 2022 2:48pm Note Date/Time August 20, 2022 2:3 7pm [facility] Medical Records Department [address] [place] [address] Progress Note - Hospitalist 08/20/22 1436 MR#: [id number] Acct: [id number] Name: SHANNON OLSON Rep #:[id number] : 1955 66 From: Xiao Medina MD PCP: Care Physician,No Primary Status :ADM MYRTLE Location: [place] [address] Reason for Visit Reason for Visit: Diagnoses Encounter for other preprocedural examination (08/20/22) Subjective Subjective Mr. Olson is a 66-year-old male with a history of atrial fibrillation, coronaryartery disease, CVA, GERD, RA, HIPOLITO who presented to [facility] 08/20/2022 for a left shoulder [...] Charges/Coding Visit Charges Office Visits / Consults: 46107 OP Consult L3 08/20/22 2524 <Electronically signed by Xiao Medina MD> Cosigner Signature (if applicable): CC: ~ Signed [facility] Work Phone: 1(165) 638-366003-30-2023 Procedure [facility] 07-06-2022 History of Present illness Narrative* Zoie Gonzales MD - 07/06/2022 2:45 PM EST [facility] Cardiology [facility] [address] [facility] [address] Dept: [phone] Dept Loc: [phone] Visit type: Established : 1955 Chief Complaint: Chief Complaint Patient presents with 6 Month Follow-up History of Present Illness: Shannon Olson is a 66 y.o. male Past Medical History: Past Medical History: Diagnosis Date Angina pectoris ([facility]) Anxiety Arrhythmia A-fib Asthma CAD (coronary artery disease) Cerebral artery occlusion with cerebral infarction ([facility]) ([facility]) COPD (chronic obstructive pulmonary disease) ([facility]) Depression WATTS (dyspnea on exertion) Fatigue GERD (gastroesophageal reflux disease) History of cardioversion 05/07/2016 Successful conversion of a-fib to SR History of left heart catheterization 05/07/2016 60% stenosis right posterior descending, patent stents in prox, mid & distal RCA, patent stentsin med LCx. Findings unchanged from previous study. 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) ([facility]) 12/2012 NSTEMI (non-ST elevated myocardial infarction) ([facility]) ([facility]) 05/2014 Obesity Old MD (myocardial infarction) HIPOLITO (obstructive sleep apnea) HIPOLITO on CPAP PAF (paroxysmal atrial fibrillation) ([facility]) ([facility]) Rheumatoid arthritis(714.0) ([facility]) ST segment elevation myocardial infarction (STEMI) of anterolateral wall, subsequent episode of care ([facility]) ([facility]) TIA (transient ischemic attack) Past Surgical [...] CORONARY ANGIOPLASTY WITH STENT PLACEMENT Left 12/01/2021 APPLICATION SUPPORT LEAD/PCI to prox RCA CORONARY ANGIOPLASTY WITH STENT [...] summer. The right coronary artery is a APPLICATION SUPPORT LEAD and could not be opened. The prior [...] Final Assessment and Plan: 1. CAD in [place] artery 2. Primary hypertension 3. PAF (paroxysmal atrial fibrillation) ([facility]) ([facility]) 4. Other hyperlipidemia I summary and [...] I given his cardiacstatus documented in this [facility]07-11-2022 Hospital Discharge instructions* Instructions* Milagro Jaimes APRN - CONTROL SYSTEM MANAGER - 12/01/2021 Call your doctor with any medication questions or if you notice any side effects from your medications. If you are unable to fill your medications, please call your Eyeglass Lens Cutter immediately. The office number is located with [...] for 24 hours. GIVE PCI PACKET (FROM MOLD SANDER) TO PATIENT Give Coronary Artery Discharge Booklet [...] be gone by tomorrow. documented in this [facility] Work Phone: [phone]) 662-187310-26-2021 NoteName: Shannon Olson Date of : 1955 [...] Diagnosis ? NSTEMI (non-ST elevated myocardial infarction) ([facility]) ? Hypertension ? Hyperlipidemia ? Atherosclerotic heart disease of [place] coronary artery with other forms of angina pectoris ([facility]) ? COPD (chronic obstructive pulmonary disease) ([facility]) ? HIPOLITO on CPAP ? PAF (paroxysmal atrial fibrillation) ([facility]) ? group home current use of anticoagulant ? 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 HIPOLITO (obstructive sleep apnea) ? Chest pain ? CAD (coronary artery disease) ? Unstable angina ([facility]) ? CAD in [place] artery ? Status post left heart catheterization [...] 2. Small diffusely disease (more content not included)...[facility]18[facility] Hospital course Narrative* France Spain APRN [...] List Diagnosis NSTEMI (non-ST elevated myocardial infarction) ([facility]) Hypertension Hyperlipidemia Atherosclerotic heart disease of [place] coronary artery with other forms of angina pectoris (HCC) COPD (chronic obstructive pulmonary disease) ([facility]) HIPOLITO on CPAP PAF (paroxysmal atrial fibrillation) (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 He was admitted to [facility] in March with COVID 19. In 08/2019 he underwent a PCI to In stent restenosis in the RCA, secondary to an abnormal stress test. He developed recurrent angina pectoris. He was scheduled for [facility]. Stents to CX and LAD patent, [...] Discharge Medications: Shannon Olson Home Medication Instructions LUIZ:[id number] Printed on:03/18/21 4954 Medication Information albuterol sulfate HFA (VENTOLIN HFA) [...] tablet Take 1 tablet by mouth daily aqzsmjhuhxu-wvtvaavxz-muqiph (TRELEGY ELLIPTA) 100-62.5-25 MCG/INH AEPB Inhale 1 [...] If no relief after 3 pills, call immediately. spironolactone (ALDACTONE) 25 MG tablet Take [...] Cardiac Rehab The Cardiac Rehabilitation Team at [facility] consists of highly skilled healthcare professionals, including [...] regarding this valuable service please call # [phone] Orientation is available on all Wednesdays at 11:30 am location in the [address] BMI Classification: Obese (BMI 30.0-39.9) DIET: A lowfat, low cholesterol diet was discussed with the patient. Discharge to Home Condition at Discharge: good Follow up with cardiology 03/24/2021 at 1:30 pm With Danisha OLIVERA CNP If any questions call [facility] office [phone] Total time spent for Discharge time greater than 31 minutes [facility]: [phone]) 147-407210-26-2021 History of Present illness Narrative* Zoie Gonzales [...] Status post left heart catheterization CAD in [place] artery Resolved Problems: * No resolved hospital [...] mL/hr at 03/18/21 0634 CBC: Recent Labs 03/18/21 013 WBC 8.6 HGB 12.1* HCT 35.6* PLT [...] follow up in office documented in this [facility] Work Phone: [phone]) 136-777310-25-2021 Hospital Discharge instructions* Instructions* Theodore MilagroDANIELLE - CONTROL SYSTEM MANAGER - 03/17/2021 Call your doctor with any medication questions or if you notice any side effects from your medications. If you are unable to fill your medications, please call your Eyeglass Lens Cutter immediately. The office number is located with [...] for 24 hours. GIVE PCI PACKET (FROM MOLD SANDER) TO PATIENT Give Coronary Artery Discharge Booklet [...] Cardiac Rehab The Cardiac Rehabilitation Team at [facility] consists of highly skilled healthcare professionals, including [...] regarding this valuable service please call # [phone] [place] [address] [facility] Work Phone: 1(839) 254-296305-06-2021 NoteHNO ID: [id number] Author: Mari Madison LPN Service: ? Author Type: ? Type: Progress Notes Filed: 09/26/2020 3:51 PM Note Text: POPULATION HEALTH NAVIGATION OUTREACH Action/I HTN - Attempted to contact patient regarding [...] future healthcare decisions with a power of employment law attorney, living will, or advance directives? No. Are you interested in a follow-up phone call or visit with a doctor for more information about planning for future health care decisions? No Referrals: N/A Message Sent to Practice: NO Navigation Signature: Mari Madison LPN September 26, 2020 3:40 [facility]05-06-2021 NotePatient Outreach (INTMWS) SHANNON OLSON ([id number]) 1955 M Date Time Provider Department 09/26/20 MARINO SUAREZ INTMWS During your visit today, we recorded the following information about you: Mari Mayersdanya ROSEN 09/26/2020 3:51 PM Signed POPULATION HEALTH NAVIGATION [...] future healthcare decisions with a power of employment law attorney, living will, or advance directives? No. 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, unspecified documented in this encounter [facility] Work Phone: Evaluation note* Diagnosis Pneumonia due to COVID-19 virus Interstitial lung disease (HCC) 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, unspecified documented in this encounter [facility] Work Phone: Evaluation note* Diagnosis Stable angina pectoris (HCC) Coronary artery disease involving [place] coronary artery of [place] heart without angina pectoris documented in this encounter [facility] Work Phone: Evaluation note* Diagnosis CAD in [place] artery- Primary Coronary atherosclerosis of [place] coronary artery Coronary artery disease involving [place] coronary artery of [place] heart without angina pectoris Unstable angina (HCC) Intermediate coronary syndrome Status post left heart catheterization documented in this encounter [facility] Work Phone: Evaluation noteNo assessment information available [facility] Work Phone: Evaluation note* Diagnosis Chronic obstructive pulmonary disease, unspecified (HCC) COPD with asthma (HCC) Chronic obstructive asthma, unspecified documented in this encounter [facility] Work Phone: Evaluation note* Diagnosis Onset Date Resolution Status Low hemoglobin acute Total bilirubin, elevated ac [place] Chronic diarrhea chronic Esophageal reflux chronic [facility] Work Phone: Evaluation note* Diagnosis Onset Date Resolution Status Low hemoglobin acute Total bilirubin, elevated ac [place] Chronic diarrhea chronic Esophageal reflux chronic Gastritis acute Chronic diarrhea chronic Esophageal reflux chronic Diarrhea acute Dysphagia acute [facility] Work Phone: Evaluation note* Diagnosis Onset Date Resolution Status Epidermal inclusion cyst acu te Diarrhea chronic Gastric reflux chronic Skin lesion acute Rotator cuff disorder acute [facility] Work Phone: Evaluation note* Diagnosis Onset Date Resolution Status Diarrhea chronic Gastric reflux chronic Skin lesion acute Rotator cuff disorder acute [facility] Work Phone: Evaluation note* Diagnosis Coronary artery disease involving [place] coronary artery of [place] heart without angina pectoris- Primary Localized edema Edema PAF (paroxysmal atrial fibrillation) ([facility]) ([facility]) Atrial fibrillation Primary hypertension Unspecified essential hypertension Chronic obstructive pulmonary disease, unspecified COPD type ([facility]) WATTS (dyspnea on exertion) Other dyspnea and respiratory abnormality Shortness of breath on exertion Shortness of breath documented [facility]* Diagnosis WATTS (dyspnea on exertion)- Primary Other dyspnea and respiratory abnormality Localized edema Edema documented in this encounter [facility]* Diagnosis Onset Date Resolution Status Diarrhea chronic Gastric reflux chronic Skin lesion acute Rotator cuff disorder acute Left thyroid nodule acute [facility] Work Phone: Evaluation note* Diagnosis HIPOLITO (obstructive sleep apnea)- Primary Obstructive sleep apnea (adult) (pediatric) Transient disorder of initiating or maintaining sleep documented in this encounter [facility]* Diagnosis Localized edema Edema documented in this encounter [facility]* Diagnosis Onset Date Resolution Status Skin lesion acute Rotator cuff disorder acute Left thyroid nodule acute [facility] Work Phone: Evaluation note* Diagnosis CAD in [place] artery Primary hypertension Unspecified essential hypertension NSTEMI (non-ST elevated myocardial infarction) ([facility]) ([facility]) Acute myocardial infarction, subendocardial infarction, episode of care unspecified PAF (paroxysmal atrial fibrillation) ([facility]) ([facility]) Atrial fibrillation Other hyperlipidemia [facility]* Diagnosis HIPOLITO (obstructive sleep apnea)- Primary Obstructive sleep apnea (adult) (pediatric) documented in this encounter [facility]* Diagnosis Renal insufficiency- Primary Unspecified disorder of kidney and ureter documented [facility]* Diagnosis Chest pain- Primary Unspecified chest pain Chest pain Unspecified chest pain Status post left heart catheterization CAD in [place] artery Class 2 obesity in adult COPD (chronic obstructive pulmonary disease) ([facility]) Chronic airway obstruction, not elsewhere classified HIPOLITO on CPAP PAF (paroxysmal atrial fibrillation) ([facility]) ([facility] Atrial fibrillation documented in this encounter [facility]* Diagnosis Onset Date Resolution Status Rotator cuff disorder acute Left thyroid nodule acute [facility] Work Phone: Evaluation note* Diagnosis Onset Date Resolution Status Left thyroid nodule acute [facility] Work Phone: Evaluation note* Diagnosis Presence of coronary angioplasty implant and graft documented [facility] encounter [facility]* Diagnosis WATTS (dyspnea on exertion)- Primary Other dyspnea and respiratory abnormality documented in this encounter [facility]* Diagnosis WATTS (dyspnea on exertion)- Primary Other dyspnea and respiratory abnormality CAD in [place] artery PAF (paroxysmal atrial fibrillation) ([facility]) (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) Primary hypertension Unspecified essential hypertension Other hyperlipidemia Presence of coronary angioplasty implant and graft documented in this encounter [facility]* Diagnosis CAD in [place] artery documented in [facility] encounter [facility]* Diagnosis Atherosclerotic heart disease of [place] coronary artery with other forms of angina pectoris ([facility]) NSTEMI (non-ST elevated myocardial infarction) ([facility]) ([facility]) Acute myocardial infarction, subendocardial infarction, episode of care unspecified Hypertension, unspecified type PAF (paroxysmal atrial fibrillation) ([facility]) Atrial fibrillation Atherosclerotic heart disease of [place] coronary artery with other forms of angina pectoris ([facility])- Primary Atherosclerotic heart disease of [place] coronary artery with other forms of angina pectoris ([facility]) documented in this encounter [facility]* Diagnosis Atherosclerotic heart disease of [place] coronary artery with other forms of angina pectoris ([facility])- Primary Coronary artery disease of [place] artery of [place] heart with stable angina pectoris ([facility]) Atherosclerotic heart disease of [place] coronary artery with other forms of angina pectoris ([facility]) documented in this encounter [facility]* Diagnosis CAD in [place] artery- Primary Essential hypertension, benign Chronic diastolic heart failure ([facility]) Chronic diastolic heart failure PAF (paroxysmal atrial fibrillation) ([facility]) Atrial fibrillation Mixed hyperlipidemia documented in this encounter [facility]* Diagnosis HIPOLITO (obstructive sleep apnea)- Primary Obstructive sleep apnea (adult) (pediatric) documented in this encounter [facility]* Diagnosis CAD in [place] artery- Primary Chronic diastolic heart failure (HCC) Chronic diastolic heart failure Essential hypertension, benign PAF (paroxysmal atrial fibrillation) (HCC) Atrial fibrillation Mixed hyperlipidemia documented in this encounter [facility]* Diagnosis HIPOLITO treated with BiPAP- Primary Atherosclerotic heart disease of [place] coronary artery with other forms of angina pectoris (HCC) PAF (paroxysmal atrial fibrillation) (HCC) Atrial fibrillation Chronic diastolic heart failure (HCC) Chronic diastolic heart failure Chronic bronchitis, unspecified chronic bronchitis type ([facility]) documented in this encounter [facility]* Diagnosis Onset Date Resolution Status Dysphagia acute [facility] Work Phone: Evaluation note* Diagnosis CAD in [place] artery- Primary Chronic diastolic heart failure (HCC) Chronic diastolic heart failure Essential hypertension, benign PAF (paroxysmal atrial fibrillation) (HCC) Atrial fibrillation Mixed hyperlipidemia documented in this encounter [facility]* Diagnosis CAD in [place] artery- Primary Chronic diastolic heart failure (HCC) Chronic diastolic heart failure Essential hypertension, benign PAF (paroxysmal atrial fibrillation) ([facility]) Atrial fibrillation Mixed hyperlipidemia documented in this encounter [facility]* Diagnosis Onset Date Resolution Status Dysphagia acute Chest pain acute Dysphagia acute Gastric reflux [facility] Work Phone: Evaluation note* Diagnosis CAD in [place] artery- Primary Essential hypertension, benign Mixed hyperlipidemia PAF (paroxysmal atrial fibrillation) (HCC) Atrial fibrillation Chronic diastolic heart failure (HCC) Chronic diastolic heart failure documented in this encounter [facility]* Diagnosis Unstable angina (CMS/HCC) (HCC) Intermediate coronary syndrome documented in this encounter [facility]* Diagnosis Obesity (BMI 30-39.9)- Primary CAD in [place] artery Essential hypertension Unspecified essential hypertension Mixed hyperlipidemia documented in this encounter [facility]* Diagnosis HIPOLITO (obstructive sleep apnea) Obstructive sleep apnea (adult) (pediatric) documented in this encounter [facility]* Diagnosis Unstable angina (CMS/HCC) (HCC) Intermediate coronary syndrome documented in this encounter [facility]* Diagnosis Paroxysmal atrial fibrillation (HCC) Atrial fibrillation Coronary artery disease of [place] artery of [place] heart with stable angina pectoris (HCC) [facility] Diagnosis CAD in [place] artery Presence of coronary angioplasty implant and graft [facility] Diagnosis CAD in [place] artery Primary hypertension Unspecified essential hypertension PAF (paroxysmal atrial fibrillation) (CMS/HCC) (HCC) Atrial fibrillation Other hyperlipidemia documented [facility]* Diagnosis CAD in [place] artery documented [facility]* Diagnosis CAD in [place] artery- Primary PAF (paroxysmal atrial fibrillation) (HCC) Atrial fibrillation Obesity (BMI 30-39.9) Essential hypertension Unspecified essential hypertension Mixed hyperlipidemia Abnormal EKG Nonspecific abnormal electrocardiogram (ECG) (EKG) [facility] Diagnosis Palpitations- Primary PAF (paroxysmal atrial fibrillation) (HCC) Atrial fibrillation WATTS (dyspnea on exertion) Other dyspnea and respiratory abnormality [facility] Diagnosis PAF (paroxysmal atrial fibrillation) (HCC)- Primary Atrial fibrillation CAD in [place] artery Essential hypertension Unspecified essential hypertension Mixed hyperlipidemia Obesity (BMI 30-39.9) [facility] Diagnosis Palpitations PAF (paroxysmal atrial fibrillation) (HCC) Atrial fibrillation documented [facility]* Diagnosis CAD in [place] artery PAF (paroxysmal atrial fibrillation) (HCC) Atrial fibrillation Essential hypertension Unspecified essential hypertension Abnormal EKG Nonspecific abnormal electrocardiogram (ECG) (EKG) [facility] Diagnosis CAD in [place] artery documented [facility]* Diagnosis CAD in [place] artery Unstable angina (CMS/HCC) (HCC)- Primary Intermediate coronary syndrome [facility] Diagnosis Unstable angina (CMS/HCC) (HCC)- Primary Intermediate coronary syndrome Unstable angina (CMS/HCC) (HCC)- Primary Intermediate coronary syndrome documented [facility]* Diagnosis Unstable angina (CMS/HCC) (HCC)- Primary Intermediate coronary syndrome Unstable angina (CMS/HCC) (HCC)- Primary Intermediate coronary syndrome Unstable angina (CMS/HCC) (HCC) Intermediate coronary syndrome documented [facility]* Diagnosis Unstable angina (CMS/HCC) (HCC)- [...] 3a chronic kidney disease (HCC) CAD in [place] artery Unstable angina (CMS/HCC) (HCC) Intermediate coronary syndrome documented in [facility]* Diagnosis CAD in [place] artery- Primary PAF (paroxysmal atrial fibrillation) (HCC) Atrial fibrillation Essential hypertension Unspecified essential hypertension Mixed hyperlipidemia Acute on chronic diastolic congestive heart failure (HCC) [facility] Diagnosis CAD in [place] artery- Primary Chronic diastolic heart failure (HCC) Chronic diastolic heart failure Cardiomyopathy, ischemic Other specified forms of chronic ischemic heart disease documented [facility]* Diagnosis CAD in [place] artery- Primary Chronic diastolic heart failure (HCC) Chronic diastolic heart failure Cardiomyopathy, ischemic Other specified forms of chronic ischemic heart disease documented in this encounter [facility]* Diagnosis Primary hypertension- Primary Unspecified essential hypertension [facility]* Diagnosis WATTS (dyspnea on exertion) Other dyspnea and respiratory abnormality documented in this encounter [facility]* Diagnosis Primary hypertension Unspecified essential hypertension [facility]* Diagnosis CAD in [place] artery- Primary Chronic diastolic heart failure (HCC) Chronic diastolic heart failure Cardiomyopathy, ischemic Other specified forms of chronic ischemic heart disease Cardiomyopathy, ischemic Other specified forms of chronic ischemic heart disease documented in this encounter [facility]* Diagnosis Cardiomyopathy, ischemic Other specified forms of chronic ischemic heart disease documented in this encounter [facility]* Diagnosis CAD in [place] artery- Primary Essential hypertension, benign Mixed hyperlipidemia [facility]* Diagnosis PAF (paroxysmal atrial fibrillation) ([facility]) Atrial fibrillation [facility]* Diagnosis Primary hypertension Unspecified essential hypertension [facility]* Diagnosis WATTS (dyspnea on exertion) Other dyspnea and respiratory abnormality Primary hypertension Unspecified essential hypertension documented in this encounter [facility] and [facility] note Author Dwayne Bess [facility] May 20, 2023 9:58am Note Date/Time May 20, 2023 9:58am [facility] Medical Records Department [address] [place] [address] History & Physical Exam 05/20/23 0957 MR#: [id number] Acct: [id number] Name: SHANNON OLSON Rep #:[id number] : 1955 67 From: Dwayne Bess MD PCP: Dr. Finn Ferrell MD Status:[facility] Location: [place] [address] History and Physical Date of Admission: 05/20/23 [...] mg PO DAILY 04/07/23 [History Confirmed 04/07/23] [facility] Medical History Anxiety Atrial fibrillation CAD (coronary artery disease) Cardiology follow-up encounter Chest pain Cholelithiasis with chronic cholecystitis COPD (chronic obstructive pulmonary disease) COPD (chronic obstructive pulmonary disease) Coronary atherosclerosis of [place] coronary vessel Depression Difficulty swallowing Dysphagia Epidermal [...] had a negative heart catheterization performed at [facility]. He was started on Ranexa for his chest pain and angina with complete relief. He is also been initiated on pantoprazole. He does note some epigastric burning and occasional difficulty with solid foods getting stuck. Among other medications he is on clopidogrel and metoprolol and minoxidil and Eliquis and isosorbide mononitrate and rosuvastatin. At the [facility] on March 29, 2023 he [...] General: cooperative, comfortable and no acute distress [facility] Head: normal to inspection Eyes General: [...] Ferrell MD; Dr. Dwayne Bess MD~ Signed [facility] Work Phone: Relnwl for referral (narrative)* Consultation (Routine) - Pending Review Specialty Diagnoses / Procedures Referred By Contac t Referred To Contact Bariatrics Diagnoses Obesity (BMI 30-39.9) Procedures OR OFFICE/OUTPATIENT [facility] 60 MINUTES Dominguez Ortega MD [address] [place] [address] [facility] [address] [place] [address] Referral ID Status Reason Start Date Expiration Date Visits Requested Visits Authorized [id number] Pending Review Specialty Services Required 02/01/2024 01/31/2025 1 1 [facility] (n[facility]ative)No reason for referral information [facility] Work Phone: Revaru for visit Narrative* Cardiology (Routine) - Closed Specialty Diagnoses / Procedures Referred By Contac t Referred To Contact Cardiology Diagnoses Palpitations PAF (paroxysmal atrial fibrillation) (HCC) Procedures Cardiac holter monitor (3-7 days) OR EXTERNAL ECG REC>48HR<7D REVIEW & INTERPRETATION OR EXTERNAL ECG REC>48HR<7D RECORDING OR EXTERNAL ECG REC>7D<15D RECORDING OR EXTERNAL ECG REC>7D<15D REVIEW & INTERPRETATION [place] APRN - CONTROL SYSTEM MANAGER [address] [place] [address] Phone: tel: fax: Referral ID Status Reason Start Date Expiration Date Visits Re quested Visits Authorized [id number] Closed 07/20/2024 07/15/2025 1 1 [employer] [facility] for visit Narrative* Imaging (Routine) - Closed Specialty Diagnoses / Procedures Referred By Contac t Referred To Contact Cardiology Diagnoses CAD in [place] artery PAF (paroxysmal atrial fibrillation) (HCC) Essential hypertension Abnormal EKG Procedures Transthoracic echocardiogram (TTE) complete with contrast, bubble, strain, and 3D PRN OR ECHO TTHRC R-T 2D W/WOM-MODE COMPL SPEC&COLR D OR TTE W OR WO FOL WCON,DOPPLER Nayana Spainzabeth J, RENT AND HOUSING INVESTIGATOR - CONTROL SYSTEM MANAGER [address] [facility] [address] [place] [address] Phone: tel: fax: Referral ID Status Reason Start Date Expiration Date Visits Re quested Visits Authorized [id number] Closed 07/06/2024 07/06/2025 1 1 [facility] Narrative* Auth/Cert (Routine) Specialty Diagnoses / Procedures Referred By Contac t Referred To Contact Diagnoses Unstable angina (CMS/HCC) (HCC) Unstable angina (CMS/HCC) (HCC) [I20.0] Procedures OR CATH PLMT L HRT & ARTS W/NJX & ANGIO IMG S&I Left heart cath / coronary angiography Dominguez Ortega MD [address] [place] [address] Phone: tel: fax: Referral ID Status Reason Start Date Expiration Date Visits Re quested Visits Authorized [id number] 09/07/2024 1 1 [facility] for visit Narrative* Imaging (Routine) - Closed Specialty Diagnoses / Procedures Referred By Contac t Referred To Contact Cardiology Diagnoses Cardiomyopathy, ischemic Procedures Transthoracic echocardiogram (TTE) complete with contrast, bubble, strain, and 3D PRN OR ECHO TTHRC R-T 2D W/WOM-MODE COMPL SPEC&COLR D OR TTE W OR WO COLE VALENCIA Elizabeth J, RENT AND HOUSING INVESTIGATOR - CONTROL SYSTEM MANAGER [address] [place] [address] Phone: tel: fax: Referral ID Status Reason Start Date Expiration Date Visits Re quested Visits Authorized [id number] Closed 10/10/2024 10/10/2025 1 1 [employer] Summary Purpose Family History No Family History [...] FoundDocuments on File Type Date Recorded Patient Campground Hand Expl anation Advance Directives and Living Will Power of Aircraft Instrument Mechanic Latest Code Status on File Code Status [...] Documents on File Type Date Recorded Patient Campground Hand Expl anation ACP-Advance Directive ACP-Power of Aircraft Instrument Mechanic Latest Code Status on File Code Status Date Activated Date Inactivated Comments Full Code 09/15/2019 6:13 AM 09/15/2019 6:29 PM Full Code 09/08/2019 3:05 PM 09/09/2019 7:18 PM Full Code 09/08/2019 12:42 PM 09/08/2019 3:04 PM Full Code 09/06/2019 9:26 PM 09/08/2019 12:42 PM Full Code 09/05/2019 12:32 PM 09/06/2019 9:26 PM Documents on File Type Date Recorded Patient Campground Hand Expl anation ACP-Advance Directive ACP-Power of Aircraft Instrument Mechanic Latest Code Status on File Code Status [...] Yes September 09, 2021 10:56pm Power of Aircraft Instrument Mechanic No September 09 10:56pm Latest Code Status [...] Date/ Time Name of Medical Power of Aircraft Instrument Mechanic NEPHEW/BROTHER January 07, 2022 1:29pm Advance Directives Yes September 03, 2 015 10:22am Living Will Yes January 07 1:29pm Power of Aircraft Instrument Mechanic Yes January 07, 022 1:29pm Advance Directive Response Recorded Date/ Time Name of Medical Power of Aircraft Instrument Mechanic NEPHEW/BROTHER January 07, 2022 12:29pm Advance Directives Yes September 03, 2 015 9:22am Living Will Yes January 07 12:29pm Power of Aircraft Instrument Mechanic Yes January 07, 022 12:29pm Advance Directive Response Recorded Date/ Time Name of Medical Power of Aircraft Instrument Mechanic Reynold Olson August 20, 2022 1:18pm Advance Directives Yes September 03, 2 015 10:22am Living Will Yes August 20, 2022 1:18pm Power of Aircraft Instrument Mechanic Yes August 20 1:18pm Documents on File Type Date Recorded Patient Campground Hand Expl anation Advance Directives and Livin g Will 10/29/2022 3:11 PM Power of Aircraft Instrument Mechanic 10/29/2022 3:11 PM Documents on File Type Date Recorded Patient Campground Hand Expl anation Advance Directives and Livin g Will 10/29/2022 3:11 PM Power of Aircraft Instrument Mechanic 10/29/2022 3:11 PM Advance Directive Response Recorded Date/ Time Name of Medical Power of Aircraft Instrument Mechanic Reynold Olson August 20, 2022 1:18pm Name of Medical Power of Aircraft Instrument Mechanic brother Ying December 05, 2022 10:49pm Advance Directives Yes September 03, 2 015 10:22am Living Will Yes December 05, 2022 10:49pm Power of Aircraft Instrument Mechanic Yes December 05 10:49pm Latest Code Status [...] Date/ Time Name of Medical Power of Aircraft Instrument Mechanic brother Ying December 05, 2022 10:49pm Advance Directives Yes September 03, 015 10:22am Living Will Yes December 05, 2022 10:49pm Power of Aircraft Instrument Mechanic Yes December 05 10:49pm Advance Directive Response Recorded Date/ Time Name of Medical Power of Aircraft Instrument Mechanic brother Ying December 05, 2022 10:49pm Name of Medical Power of Aircraft Instrument Mechanic Reynold Greenwood December 28, 2022 10:52pm Advance Directives Yes September 03, 2 015 10:22am Living Will Yes December 28, 2022 10:52pm Power of Aircraft Instrument Mechanic Yes December 28 10:52pm Healthcare Agents on [...] Date/ Time Name of Medical Power of Aircraft Instrument Mechanic brother Ying December 05, 2022 9:49pm Name of Medical Power of Aircraft Instrument Mechanic Reynold Greenwood December 28, 2022 9:52pm Advance Directives Yes September 03, 2 015 9:22am Living Will Yes December 28, 2022 9:52pm Power of Aircraft Instrument Mechanic Yes December 28 9:52pm Advance Directive Response Recorded Date/ Time Name of Medical Power of Aircraft Instrument Mechanic Reynold Greenwood December 28, 2022 9:52pm Advance Directives Yes September 03, 2 015 9:22am Living Will Yes December 28, 2022 9:52pm Power of Aircraft Instrument Mechanic Yes [place] 7th, 20 23 9:52pm Healthcare Agents on File Name Relationship [...] Date/ Time Name of Medical Power of Aircraft Instrument Mechanic ON FILE, NIMCO OLSON AND BRANDEN OLSON May 14, 2023 4:06pm Advance Directives Yes September 03, 2 015 9:22am Living Will Yes May 14, 023 4:06pm Power of Aircraft Instrument Mechanic Yes May 14, 2023 4:06pm Healthcare Agents on File Name Relationship Healthcare Agent Relationshi p Communication Reynold Olguin First Alternate Health Care Agent Advance Directive Response Recorded Date/ Time Name of Medical Power of Aircraft Instrument Mechanic Reynold Olson July 05, 2023 11:53am Advance Directives Yes September 03, 2 015 9:22am Living Will Yes July 05, 2 024 11:53am Power of Aircraft Instrument Mechanic Yes July 05, 2023 11:53am Name of Medical Power of Aircraft Instrument Mechanic ON FILE, NIMCO OLSON AND BRANDEN OLSON May 14, 2023 4:06pm Healthcare Agents [...] Agents on File Name Relationship Healthcare Agent Asahi p Communication Reynold Mathias Alternate Health Care Agent Healthcare Agents on File Name Relationship Healthcare Agent Relationshi p Communication Reynold Mathias Alternate Health Care Agent Advance Directive Response Recorded Date/ Time Do you have a Healthcare Power of Aircraft Instrument Mechanic? Yes November 14, 2024 11:36pm Advance Directives Yes August 22 9:57am Healthcare Agents on File Name Relationship Healthcare Agent Asahi p Communication Reynold Mathias Alternate Health Care [...] cardiac catheterization because of abnormal stress echo. BUS PERSON stent placement of RCA. Postprocedure has remained [...] echo, cardiac catheterization CONSULTANTS: cardiology DISCHARGE MEDICATIONS: Jayla Shannon Mendiola Home Medication Instructions LUIZ:[id number] Printed on:09/09/19 0820 Medication Information amiodarone (CORDARONE) 200 MG tablet [...] Complexity: follow up within 7-14 calendar days (54757) [] Severe Complexity: follow up within 7 calendar days (43897) FOLLOW UP TESTING, PENDING RESULTS OR REFERRALS AT TRANSITIONAL CARE VISIT: [] Yes [] No PENDING STUDIES: No DISPOSITION: Home FACILITY/HOME CARE AGENCY NAME: Follow up with Miguel Calzada [address] [place] [address] Zoie Gonzales MD [address] [place] [address] [phone] On 09/14/2019 Time: 1:30 pm with Danisha OLIVERA CNP Telehealth visit. Call PCP for appointment in [...] most local grocery stores, pharmacies, and chain super-stores. ? If you have any questions about [...] at most local grocery stores, pharmacies, and [employer]-stores. ? If you have any questions about your diet or nutrition, call the hospital and ask for the dietitian. ? Cardiac diet * Additional Instructions* Serina Mason RN - 09/15/2019 Please get BMP in 1 week. * Attachments The following attachments cannot be sent through Care Everywhere. * Chest Pain (Singaporean) documented in this encounter History of Present Illness * Zoie Gonzales MD - 09/09/2019 7:50 AM EDT INTERVENTIONAL CARDIOLOGY PROGRESS NOTE Chart and interval events reviewed. Reason for Visit s/p PCI of RCA SUBJECTIVE: Shannon Mendiola Jayla states he feels well SCHEDULEDMEDICATIONS: sodium chloride [...] F/u tele visit next week * George Abdul, [facility] - 09/08/2019 9:29 PM EDT [facility] Department Progress Note Patient was [...] EDT Hospitalist Progress Note 09/08/2019 2:39 PM [phone]: Please page me for patient care issues. [phone]: Please page [facility] night Hospitalist for any issues. Subjective: Admit Date: 09/05/2019 PCP: Miguel Calzada Room#: 130/N23422 Interval History: Patient seen and examined, I [...] of Hospitalist Medicine Inpatient Medical Services PAGER: [phone] * Zoie Gonzales MD - 09/08/2019 11:20 [...] area which is where he had prior MD. He did have some CP, so Dr. Gonzales recommends [facility] for further eval. D/w pt and [...] or percutaneous valve procedure (select one): No [facility] Classificaton : I Frailty Score : 3 Poseidon Protocol :No GFR>60 2. AFib RVR s/p BELLA/DCC 09/07/19 - Stable. In SB-SR. Symptoms improved. On Amio 200mg daily for rhythm control, BB for rate control, and apixaban for OAC. 3. Dispo - If LHC shows no obstructive CAD, then likely recommend discharge home later today. Will await LHC findings. D/w Dr. Gonzales. Patient seen and [...] EDT Hospitalist Progress Note 09/07/2019 10:54 AM [phone]: Please page me for patient care issues. [phone]: Please page [facility] night Hospitalist for any [...] of Hospitalist Medicine Inpatient Medical Services PAGER: [phone] * Yemi South MD - 09/06/2019 2:43 PM EDT Hospitalist Progress Note 09/06/2019 2:43 PM [phone]: Please page me for patient care issues. [phone]: Please page [facility] night Hospitalist for any [...] of Hospitalist Medicine Inpatient Medical Services PAGER: [phone] * Brandi Gupta RD, LD - 09/06/2019 [...] EPIC: 294# on 10/10, 280# on 06/05 [place] Wt: 190 lb 7.6 oz (86.4 kg), % [place] 137% BMI Classification: BMI 30.0 - [...] Procedures CT Chest WO Contrast Quan Green, RENT AND HOUSING INVESTIGATOR - CONTROL SYSTEM MANAGER [address] [place] [id number] Status Reason Specialty Diagnoses / Procedures Re ferred By Contact Referred To Contact Open Pulmonary Disease Diagnoses Pneumonia due to COVID-19 virus Interstitial lung disease (HCC) Pneumoconiosis (HCC) Procedures Full PFT Study With Bronchodilator Tree Gonzales MD [address] [place] [address] Status Reason Specialty Diagnoses / Procedures Referred By Contact Referred To Contact In Progress Specialty Services Required Cardiac Rehabilitation Diagnoses Coronary artery disease involving [place] coronary artery of [place] heart without angina pectoris Zoie Gonzales MD [address] [facility] [address] [place] [address] [facility] [address] [facility] [address] [place] [address] Scheduling Instructions [facility] [address] [facility] [address] [place] [address] Status Reason Specialty Diagnoses / Procedures Referred By Contact Referred To Contact Open Specialty Services Required Cardiac Rehabilitation Diagnoses CAD in [place] artery Milagro Jaimes, RENT AND HOUSING INVESTIGATOR - CONTROL SYSTEM MANAGER [address] [place] [address] Specialty Diagnoses / Procedures Referred By Contac t Referred To Contact Diagnoses COPD with asthma (HCC) Procedures Full PFT Study With Bronchodilator Tree Gonzales MD [address] [place] [address] Referral ID Status Reason Start Date Expiration Date Visits Re quested Visits Authorized Closed 10/23/2021 10/23/2022 1 1 Specialty Diagnoses / Procedures Referred By Contac t Referred To Contact Cardiology Diagnoses Localized edema Procedures Transthoracic echocardiogram (TTE) complete with contrast, bubble, strain, and 3D PRN OR ECHO TTHRC R-T 2D W/WOM-MODE COMPL SPEC&COLR D OR TTE W OR WO FOL WCON,DOPPLER Samra Gonzalez, RENT AND HOUSING INVESTIGATOR - CONTROL SYSTEM MANAGER [address] [address] Referral ID Status Reason Start Date Expiration Date Visits Requested Visits Authorized [id number] Pending Review Perform Procedure 09/28/2022 03/27/2023 1 1 Specialty Diagnoses / Procedures Referred By Contac t Referred To Contact Sleep Medicine Diagnoses HIPOLITO (obstructive sleep apnea) Procedures Polysomnography Chris Boyce MD [address] [facility] [address] [place] [address] [facility] [address] [place] [address] Referral ID Status Reason Start Date Expiration Date V isits Requested Visits Authorized [id number] Authorized 11/11/2022 05/10/2023 1 1 Specialty Diagnoses / Procedures Referred By Contac t Referred To Contact Cardiology Diagnoses Localized edema Procedures Transthoracic echocardiogram (TTE) complete with contrast, bubble, strain, and 3D PRN OR ECHO TTHRC R-T 2D W/WOM-MODE COMPL SPEC&COLR D OR TTE W OR WO FOL WCON,Samra Mojica, RENT AND HOUSING INVESTIGATOR - CONTROL SYSTEM MANAGER [address] [address] [address] Non-Invasive Cardiology [address] [place] [address] Referral ID Status Reason Start Date Expiration Date V isits Requested Visits Authorized [id number] Closed Perform Procedure 09/28/2022 03/27/2023 1 1 Specialty Diagnoses / Procedures Referred By Contac t Referred To Contact Carmen Thornton, RENT AND HOUSING INVESTIGATOR - CONTROL SYSTEM MANAGER [address] [facility] [address] [place] [address] Referral ID Status Reason Start Date Expiration Date V isits Requested Visits Authorized [id number] Authorized 11/30/2022 02/29/2024 1 1 Chief Complaint [...] section and content) DATE CREATED AUTHOR 04/21/2019 [facility] ([place]) DATE CREATED AUTHOR AUTHOR'S ORGANIZ ATION 09/20/2019 [facility] DATE CREATED AUTHOR AUTHOR'S ORGANIZ ATION 07/06/2021 [facility] DATE CREATED AUTHOR AUTHOR'S ORGANIZ ATION 01/03/2022 [facility] DATE CREATED AUTHOR AUTHOR'S ORGANIZ ATION 03/30/2025 [facility] DATE CREATED AUTHOR AUTHOR'S ORGANIZ ATION 03/30/2025 [facility] Reason for Visit (unrecogniz ed section and content) Reason Comments Chest Pain Pt brought in by EMS for c/o chest tightness. Pt reports the pain started last night but went away and came back again this am. Pt received 324mg ASA, nitro SL and O2 en route by EMS. Pt reports significant cardiac history including MD in 1999, 18 previous stents and prior cardioversion. Reason Comments Chest Pain Reason Comments Edema Shortness of breath. Lower ext edema following shoulder surgery Reason Comments Follow-up Specialty Diagnoses / Procedures Referred By Contac t Referred To Contact Cardiology Diagnoses Localized edema Procedures Transthoracic echocardiogram (TTE) complete with contrast, bubble, strain, and 3D PRN OR ECHO TTHRC R-T 2D W/WOM-MODE COMPL SPEC&COLR D OR TTE W OR WO FOL WCON,DOPPLER Samra Gonzalez D, RENT AND HOUSING INVESTIGATOR - CONTROL SYSTEM MANAGER [address] [facility] [address] [place] [address] [address] Non-Invasive Cardiology [address] [place] [address] Referral ID Status Reason Start Date Expiration Date V isits Requested Visits Authorized [id number] Closed Perform Procedure 09/28/2022 03/27/2023 1 1 Reason Comments Follow-up Reason Comments Sleep Apnea Results Specialty Diagnoses / Procedures Referred By Contac t Referred To Contact Diagnoses Chest pain NSTEMI Procedures . 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) [I25.118] Procedures Left heart cath / coronary angiography Zoie Gonzales MD [address] [place] [address] [facility] Cardiac Cath/Ep Lab [address] [place] [address] Referral ID Status Reason Start Date Expiration Date Visits Re quested Visits Authorized [id number] 1 1 Reason Comments Follow-up Shortness of [...] apnea) Procedures Polysomnography Chris Boyce MD [address] [facility] [address] [place] [address] [facility] [address] [place] [address] Referral ID Status Reason Start Date Expiration Date Visits Re quested Visits Authorized [id number] Closed 11/11/2022 05/10/2023 1 1 Reason Onset [...] Reason Onset Date Comments Cardiac Clearance 01/18/2025 Reason Onset Date Comments Results 01/16/2025 Ordered Prescriptions (unrec ognized section and content) [...] at home) 0837 (Given - Provider: Caleb Meeks, JESUS) amLODIPine (NORVASC) tablet 5 mg 5 mg, Oral, DAILY, First dose on Wed03/17/21 at 1315 1353 (Not Given - Provider: Silva Hammond RN - Reason: Patient took at home) 0837 (Given - Provider: Caleb Meeks, JESUS) amLODIPine (NORVASC) tablet 5 mg (COMPLETED) 5 mg, Oral, ONCE, On Wed03/17/21 at 1530, For 1 dose 1522 (Given - Provider: Silva Hammond RN) apixaban (ELIQUIS) tablet 5 mg 5 mg, Oral, 2 TIMES DAILY, First dose on Wed03/17/21 at 1315, ANTICOAGULANT 1409 (Not Given - Provider: Silva Hammond RN - Reason: Other - Comment: starting with evening dose per Liza Jaimes APPLICATIONS PROGRAMMER)2030 (Given - Provider: Rj Shaw RN) 0837 (Given - Provider: Caleb Meeks RN)2099 (Due) atorvastatin (LIPITOR) tablet 80 mg 80 mg, Oral, NIGHTLY, First dose on Wed03/17/21 at 2100, Recovery(Cath) 2030 (Given - Provider: Rj Shaw RN) 2099 (Due) clopidogrel (PLAVIX) tablet 75 mg 75 [...] dose. 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)2034 (New Bag - Provider: Rj Shaw RN) [...] on Wed12/01/21 at 2100, Until Discontinued, Recovery(Cath) 2100 (Due) isosorbide mononitrate (IMDUR) extended release tablet [...] Central Line = 20 mL/lumen, Pre-Procedure(Cath) 0900 (Due)2100 (Due) PRN Medication Order 11/29/2021 11/30/2021 12/01/2021 [...] 926 (Given - Provider: Nakita Zaragoza RN) amLODIPine (Norvasc) tablet 10 mg (CANCELED) 10 [...] Gayle RN) 901 (Given - Provider: Silva Hammodn RN)2003 (Given - Provider: Audelia Wilcox RN) [...] Lugo RN) 901 (Given - Provider: Silva Hammond, JESUS) 926 (Given - Provider: Nakita Zaragoza, JESUS) lisinopril tablet 20 mg (CANCELED) 20 mg, Oral, Daily, First dose on 12/06/22 at 1045 1101 (Given - Provider: Brandi Lugo RN) metoprolol tartrate (Lopressor) tablet 25 mg 25 mg, Oral, 2 times daily, First dose (after last modification) on Wed12/07/22 at 2100, Hold if systolic blood pressure less than 120, heart rate less than 50 2003 (Given - Provider: Audelia Wilcox, JESUS) 926 (Given - Provider: Nakita Zaragoza, JESUS) metoprolol tartrate (Lopressor) tablet 50 mg (CANCELED) 50 mg, Oral, 2 times daily, First dose on 12/06/22 at 1045, Hold if systolic blood pressure less than 100, heart rate less than 50 110 (Given - Provider: Brandi Lugo RN)2009 (Given - Provider: Noe Gayle RN) 901 (Given - Provider: Silva Hammond, JESUS) minoxidil (Loniten) tablet 5 mg 5 mg, Oral, 2 times daily, First dose on 12/06/22 at 1045 1101 (Given - Provider: Brandi Lugo RN)2009 (Given - Provider: Noe Gayle RN) 901 (Given - Provider: Silva Hammond, JESUS)2003 (Given - Provider: Auedlia Wilcox, JESUS) 927 (Given - Provider: Nakita Zaragoza, JESUS) rosuvastatin (Crestor) tablet 40 mg 40 mg, Oral, Nightly, First dose on Wed12/07/22 at 2100 2003 (Given - Provider: Audelia Wilcox, JESUS) sodium chloride 0.9% (NS) flush 5-40 mL [...] Silva Hammond RN)2005 (Given - Provider: Audelia Wilcox, JESUS) 09 (Given - Provider: Nakita Zaragoza RN) spironolactone (Aldactone) tablet 25 mg 25 mg, Oral, 2 times daily, First dose on 12/06/22 at 1045 1045 (Given - Provider: Brandi Lugo RN - Comment: barcode ripped)2009 (Given - Provider: Noe Gayel RN) 0819 (Held by provider - Provider: Manuel Edgar MD - Reason: Other)0900 (Dose Auto Held - Provider: Manuel Edgar MD)1644 (Unheld by provider - Provider: Manuel Edgar MD)2003 (Given - Provider: Audelia Wilcox RN) 09 (Given - Provider: Nakita Zaragoza RN) torsemide [...] (38 C), Starting on Wed12/06/22 at 1032, Maximum dose of acetaminophen is 4000 mg from all sources in 24 hours. 1758 (Given - Provider: Brandi Lugo RN) benzonatate (Tessalon) capsule 100 mg 100 mg, Oral, 3 times daily PRN, cough, Starting on Wed12/06/22 at 1105, Do not crush or chew. 1322 (Given - Provider: Brandi Lugo RN)2011 (Given - Provider: Noe Gayle RN) 2003 (Given - Provider: Audelia Wilcox, JESUS) ipratropium-albuterol (Duo-Neb) 0.5-2.5 mg/3 mL nebulizer solution [...] Jenkins RN) 0816 (Given - Provider: Gia Mcmillan RN) apixaban (Eliquis) tablet 5 mg 5 mg, Oral, 2 times daily, First dose on Wed09/15/24 at 0900, Anticoagulant 0816 (Given - Provider: Gia Mcmillan, JESUS) cholecalciferol (Vitamin D-3) tablet 1,000 Units 1,000 Units, Oral, Daily, First dose on Wed09/14/24 at 1615 1635 (Given - Provider: Gia Mcmillan, JESUS) 0816 (Given - Provider: Gia Mcmillan RN) [...] Mcmillan RN) 0817 (Given - Provider: Gia Mcmillan RN) metoprolol tartrate (Lopressor) tablet 50 mg 50 mg, Oral, 2 times daily, First dose on Wed09/14/24 at 2100, Hold for HR < 60, BP < 100 2099 (Not Given - Provider: Abraham Jenkins RN - Reason: Contraindicated - Comment: HR 57) 0816 (Given - Provider: Gia Mcmillan RN) prochlorperazine (Compazine) injection 5 mg (COMPLETED) 5 mg, IntraVENous, Once, On Nicci 09/14/24 at 1845, For 1 dose, Give if unable to tolerate po. 2137 (Given - Provider: Abarham Jenkins, JESUS) ranolazine (Ranexa) 12 hr tablet 500 mg 500 mg, Oral, 2 times daily, First dose on Wed09/14/24 at 2100, Do not crush, chew, or split. 2136 (Given - Provider: Abraham Jenkins RN) 0817 (Given - Provider: Gia Mcmillan, JESUS) rosuvastatin (Crestor) tablet 40 mg 40 mg, Oral, Daily, First dose on Nicci 09/14/24 at 1615 1635 (Given - Provider: Gia Mcmillan RN) 0816 (Given - Provider: Gia Mcmillan, JESUS) spironolactone (Aldactone) tablet 25 mg 25 mg, Oral, 2 times daily, First dose on Wed09/15/24 at 0900 0816 (Given - Provider: Gia Mcmillan, JESUS) torsemide (Demadex) tablet 20 mg 20 mg, [...] 0931 (New Bag - Provider: Fide Dejesus, RN)1018 (Stopped - Provider: Fide Dejesus, RN) sodium chloride 0.9 % infusion () 125 mL/hr, IntraVENous, Continuous, Starting on Nicci 09/14/24 at 1430, For 6 hours, Recovery & On Unit 1415 (New Bag - Provider: Chrissy Rivas, RN)1635 (New Bag - Provider: Gia Mcmillan, RN) PRN Medication Order 09/13/2024 09/14/2024 09/15/2024 acetaminophen (Tylenol) tablet 650 mg 650 mg, Oral, Every 6 hours PRN, mild pain (1-3), moderate pain (4-6), Starting on Nicci 09/14/24 at 1507, Maximum dose of acetaminophen is 4000 mg from all sources in 24 hours. 1545 (Given - Provider: Chrissy Rivas, RN) aspirin chewable tablet (CANCELED) As needed, Starting on Nicci 09/14/24 at 1256, Intraprocedure 1256 (Given - Provider: Kelsey Richardson RN) fentaNYL (Sublimaze) injection (CANCELED) IntraVENous, As needed, Starting on Nicci 09/14/24 at 1245, Intraprocedure 1245 (Given - Provider: Kelsey Richardson RN)1337 (Given - Provider: Dwayne Perkins, RN) heparin injection (CANCELED) IntraVENous, As needed, Starting on Nicci 09/14/24 at 1247, Intraprocedure 1247 (Given - Provider: Kelsey Richardson, JESUS)1259 (Given - Provider: Kelsey Richardson RN)1344 (Given - Provider: Dwayne Perkins, RN) iopamidol (Isovue-300) 61 % injection (CANCELED) As needed, Starting on Nicci 09/14/24 at 1352, Intraprocedure 1352 (Given - Provider: Marycruz Frakns MD) lidocaine (Xylocaine) 1 % injection (CANCELED) [...] Care Teams (unrecognized sec tion and content) 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 Marino Suarez MD Family Provider Active No Primary Care Physician Primary Care Provider Active Team Status: Inactive Member Role Status Dates Dr. 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 [address] [place] [phone] PCP - General Family Medicine 09/28/22 Team Status: Inactive Member Role Status Dates Dr. 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 Finn Ferrell MD Primary Care Provider Active Dr. Kraig Bautista DO Emergency Provider Active Dr. Henrietta Quinonez MD Attending Provider Active Team Status: Inactive Member Role Status Dates Dr. Finn Ferrell MD Primary Care Provider Active Dr. 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 George Pond DO Emergency Provider Active [employer] Relationship Specialty Start Date End Date Finn Ferrell MD [address] [place] [address] PCP - General Family Medicine 09/28/22 [employer] Relationship Specialty Start Date End Date Finn Ferrell MD [address] [place] [address] PCP - General Family Medicine 09/28/22 [employer] Relationship Specialty Start Date End Date Finn Ferrell MD [address] [place] [address] PCP - General Family Medicine 09/28/22 Team Status: Inactive Member Role Status Dates Dr. Finn Ferrell MD Primary Care Provider Active DORA HOUGH Attending Provider, Referring Provide r Active Team Status: Inactive Member Role Status Dates Dr. Finn Ferrell MD Primary Care Provider Active Dr. George Pond , Attending Provider, Emergency Pr ovider Active [employer] Relationship Specialty Start Date End Date Finn Ferrell MD [address] [place] [address] PCP - General Family Medicine 09/28/22 Team Status: Inactive Member Role Status Dates Dr. Finn Ferrell MD Primary Care Pr ovider, Attending Provider, Referring Provider Active [employer] Relationship Specialty Start Date End Date Finn Ferrell MD [address] [place] [address] PCP - General Family Medicine 09/28/22 [employer] Relationship Specialty Start Date End Date Finn Ferrell MD [address] [facility] [address] [place] [address] PCP - General Family Medicine 09/28/22 [employer] Relationship Specialty Start Date End Date Finn Ferrell MD [address] [facility] [address] [place] [address] PCP - General Family Medicine 09/28/22 [employer] Relationship Specialty Start Date End Date Finn Ferrell MD [address] [facility] [address] [place] [address] PCP - General Family Medicine 09/28/22 [employer] Relationship Specialty Start Date End Date Finn Ferrell MD [address] [facility] [address] [place] [address] PCP - General Family Medicine 09/28/22 Team [...] URBAN Attending Provider, Referring Provide r Active [employer] Relationship Specialty Start Date End Date Finn Ferrell MD [address] [facility] [address] [place] [address] PCP - General Family Medicine 09/28/22 [employer] Relationship Specialty Start Date End Date Finn Ferrell MD [address] [facility] [address] [place] [phone] PCP - General Family Medicine 09/28/22 [employer] Relationship Specialty Start Date End Date Finn Ferrell MD [address] [facility] [address] [place] [address] PCP - General Family Medicine 09/28/22 Team [...] Provider Active VINAY DAY Attending Provider Active [employer] Relationship Specialty Start Date End Date Finn Ferrell MD [address] [facility] [address] [place] [phone] PCP - General Family Medicine 09/28/22 Team Status: Inactive Member Role Status Dates Dr. Finn Ferrell MD Primary Care Provider Active Dr. Reynaldo Gaviria DO Emergency Provider Active Team Status: Inactive Member Role Status Dates Dr. Finn Ferrell MD Primary Care Provider, Referr ing Provider Active Dr. Gibran Reno MD Attending Provider Active [employer] Relationship Specialty Start Date End Date Finn Ferrell MD [address] [facility] [address] [place] [phone] PCP - General Family Medicine 09/28/22 Team [...] Primary Care Provider, Attend ing Provider Active [employer] Relationship Specialty Start Date End Date Finn Ferrell MD [address] [place] [address] PCP - General Family Medicine 09/28/22 [employer] Relationship Specialty Start Date End Date Finn Ferrell MD [address] [place] [address] PCP - General Family Medicine 09/28/22 [employer] Relationship Specialty Start Date End Date Finn Ferrell MD [address] [place] [address] PCP - General Family Medicine 09/28/22 [employer] Relationship Specialty Start Date End Date Finn Ferrell MD [address] [place] [address] PCP - General Family Medicine 09/28/22 [employer] Relationship Specialty Start Date End Date Vinayak Ontiveros [address] [place] [phone] PCP - General 03/20/21 [employer] Relationship Specialty Start Date End Date Finn Ferrell MD [address] [place] [address] PCP - General Family Medicine 09/28/22 [employer] Relationship Specialty Start Date End Date Finn Ferrell MD [address] [place] [address] PCP - General Family Medicine 09/28/22 [employer] Relationship Specialty Start Date End Date Finn Ferrell MD [address] [place] [address] PCP - General Family Medicine 09/28/22 [employer] Relationship Specialty Start Date End Date Finn Ferrell MD [address] [place] [address] PCP - General Family Medicine 09/28/22 [employer] Relationship Specialty Start Date End Date Finn Ferrell MD [address] [place] [address] PCP - General Family Medicine 09/28/22 [employer] Relationship Specialty Start Date End Date Finn Ferrell MD [address] [place] [address] PCP - General Family Medicine 09/28/22 Team [...] 2024 Dr. Juan Sams MD Attending Provider Cristofer e Start: June 20, 2024 End: June [...] August 31, 2024 End: August 31, 2024 [employer] Relationship Specialty Start Date End Date Finn Ferrell MD [address] [place] [address] PCP - General Family Medicine 09/28/22 [employer] Relationship Specialty Start Date End Date Finn Ferrell MD [address] [place] [address] PCP - General Family Medicine 09/28/22 [employer] Relationship Specialty Start Date End Date Finn Ferrell MD [address] [place] [address] PCP - General Family Medicine 09/28/22 [employer] Relationship Specialty Start Date End Date Finn Ferrell MD [address] [place] [address] PCP - General Family Medicine 09/28/22 Bernice Zarate, RN Registered Nurse [employer] Manager 09/18/24 [employer] Relationship Specialty Start Date End Date Finn Ferrell MD [address] [place] [address] PCP - General Family Medicine 09/28/22 Bernice Zarate, RN Registered Nurse [employer] Operator Manager 09/18/24 [employer] Relationship Specialty Start Date End Date Finn Ferrell MD [address] [place] [address] PCP - General Family Medicine 09/28/22 Bernice Zarate, JESUS Registered Nurse [employer] Operator Manager 09/18/24 [employer] Relationship Specialty Start Date End Date Finn Ferrell MD [address] [place] [address] PCP - General Family Medicine 09/28/22 Bernice Zarate, RN Registered Nurse [employer] Operator Manager 09/18/24 [employer] Relationship Specialty Start Date End Date Finn Ferrell MD [address] [place] [address] PCP - General Family Medicine 09/28/22 Bernice Zarate RN Registered Nurse [employer] Operator Manager 09/18/24 [employer] Relationship Specialty Start Date End Date Finn Ferrell MD [address] [place] [address] PCP - General Family Medicine 09/28/22 Bernice Zarate RN Registered Nurse [employer] Operator Manager 09/18/24 [employer] Relationship Specialty Start Date End Date Finn Ferrell MD [address] [place] [address] PCP - General Family Medicine 09/28/22 Bernice Zarate RN Registered Nurse [employer] Operator Manager 09/18/24 [employer] Relationship Specialty Start Date End Date Finn Ferrell MD [address] [place] [address] PCP - General Family Medicine 09/28/22 Bernice Zarate, RN Registered Nurse [employer] Operator Manager 09/18/24 Team Status: Active Member Role Status Dates Dr. Finn Ferrell MD Primary Care Provider Active Team Status: Inactive Member Role Status Dates Dr. Finn Ferrell MD Primary Care Provider Active Start: September 11, 2024 End: September 11, 2024 [place], [place]IN Attending Provider Active Start : September 11, 2024 End: September 11, 2024 [place], [place] Referring Provider Active Start : September 11, [...] September 11, 2024 End: September 11, 2024 [place], [place] Attending Provider Active Start : September 11, 2024 End: September 11, 2024 [place], [place] Referring Provider Active Start : September 11, [...] November 15, 2024 End: November 15, 2024 [employer] Relationship Specialty Start Date End Date Finn Ferrell MD [address] [place] [address] PCP - General Family Medicine 09/28/22 Bernice Zarate, JESUS Registered Nurse [employer] Operator Manager 09/18/24 Team Status: Inactive Member Role/Relationship [...] January 15, 2025 End: January 15, 2025 DORA WILSON Other Provider Active Start: A 2024 End: January 15, 2025 Team Status: [...] January 29, 2025 End: January 29, 2025 [employer] Relationship Specialty Start Date End Date Finn Ferrell MD [address] [facility] [address] [place] [phone] PCP - General Family Medicine 09/28/22 Bernice Zarate, RN Registered Nurse [employer] Operator Manager 09/18/24 [employer] Relationship Specialty Start Date End Date Finn Ferrell MD [address] [facility] [address] [place] [address] PCP - General Family Medicine 09/28/22 [employer] Operator Relationship Specialty Start Date End Date Finn Ferrell MD [address] [facility] [address] [place] [phone] PCP - General Family Medicine 09/28/22 Goals [...] BE BASED ON THE PRIMARY CLINICAL RECORDS. [facility]. provides no warranty or guarantee of the accuracy or completeness of information in this document.
--- NOTE | 2025-04-02 06:56 | RAD_ITS ---
PROCEDURE: KNEE 1 OR 2 VIEWS 04/02/2025 REASON FOR EXAM: TKA TECHNIQUE: Procedure Code: RADK Modality: DX Procedure: KNEE 1 OR 2 VIEWS Laterality: Left knee COMPARISON: None FINDINGS: The patient is status post total knee replacement. There is good alignment. Postoperative soft tissue changes. RAD/Knee 1 or 2 Views IMPRESSION: Status post left total knee replacement. There is good alignment. Postoperative soft tissue changes. Reading Location: [place] [address]
[2025-04-02] MEDS: Magnesium 1 GM over 15 mins IV (07:12)
[2025-04-02] MEDS: LR 1,000 ML - BOLUS PREOP 999 ML IV ×2 (07:12→11:03)
[2025-04-02] MEDS: Scopolamine 1mg/72hr Patch 1 PATCH TD (07:16)
--- NOTE | 2025-04-02 07:43 | PCM.PRE.AN2 ---
ASA Classification* ASA Classification ASA Classification: 3 (CAD (many stents), PONV, HIPOLITO w/ CPAP (uncompliant), on BLOOD THINNERS. Reviewed anti-coagulation, appropriate for spinal, hx pAF, hx CVA) Assessment & Plan Anesthesia* Anesthesia Assessment Anesthesia Assessment: Discussed sedation and/or anesthesia options, risks, benefits, and alternatives with patient/parents/legal guardian/POA. Questions invited. The patient/parents/legal guardian/POA seems to understand and agrees to proceed with anesthesia plan. Reviewed the physical assessment, medical history, allergy history and patient home medications list prior to surgery/procedure/anesthetic and documented any changes. Performed airway and anesthesia risk assessments. I explained to the patient GA vs spinal, including the benefits, risks, and alternatives, but the patient has elected to proceed with GA. I had a thorough discussion with the patient, discussing his cardiac condition(s) and their risk for surgery today. I advised the patient that today's anesthesia can be a risk factor for the development of further cardiac complications, including, but not limited to myocardial ischemia and lethal arrhythmias, due to the patient's history of open heart surgery and current atrial fibrillation. I had a very detailed and thorough conversation with the patient regarding the risk of today's procedure with regards to anesthesia, which could lead to potentially lethal arrhythmias, heart failure (or exacerbation of current heart failure), stroke, and . I explained to the patient that if there were to be an emergency, our potential interventions could include anything up to placing invasive lines, such as arterial or central lines, CPR, and delivering electrical shocks to the heart. The patient acknowledges this and I answered all questions illicited by the patient. Anesthesia Type Anesthesia Type: General and Block (Adductor canal block informed consent obtained. Benefits/risks/alternatives explained. Opportunity for questions invited. Patient has given informed consent for procedure. ) History Source History Obtained from:: Patient and Chart Anesthesia Focused Assessment* Temperature: 97.9 F Pulse Rate: 61 Blood Pressure: 130/76 Respiratory Rate: 16 Pulse Ox: 97 Oxygen Delivery Method: Room Air Airway Assessment Mouth opens: >3 cm Mallampati Score: III Neck Range of motion (ROM): Full ROM Labs Anesthesia Preop lab: CBC WBC, (4.4-11.0) 8.0 K/mm3 03/13/25, Unknown RBC, (4.6-6.2) 4.52 M/mm3 L 03/13/25, Unknown Hgb, (13.0-16.5) 13.8 g/dL 03/13/25, Unknown Hct, (40-54) 42.9 % 03/13/25, Unknown Plt Count, (150-450) 282 K/mm3 03/13/25, Unknown CHEMISTRY Potassium, (3.3-5.1) 4.3 mmol/L 03/13/25, Unknown Sodium, (133-145) 138 mmol/L 03/13/25, Unknown Magnesium, (1.5-2.2) 2.2 mg/dL 01/15/25, 08:24 Phosphorus, (2.7-4.5) 2.9 mg/dL 08/31/24, 09:57 BUN, (4-19) 32 mg/dL H 03/13/25, Unknown Creatinine, (0.70-1.20) 1.52 mg/dL H 03/13/25, Unknown Glucose, (70-99) 100 mg/dL H 03/13/25, Unknown POC Glucose, (74-106) 149 mg/dL H 09/09/21, 23:02 TSH, (0.300-4.200) 1.480 uIU/mL 01/15/25, 08:24 COAG PT, (11.7-14.9) 13.0 SECONDS 12/05/22, 23:00 Pre-Assessment Diagnosis/Proposed Procedure Planned Operative Procedure(s): (L) ERAS, ROBOTIC ASSISTED LEFT TOTAL KNEE ARTHROPLASTY Anesthesia History Anesthesia History - plating department helper: Anesthesia History - plating department helper Hx Hospitalization No 03/05/25 09:27 Any Problems With Anesthesia No 03/05/25 09:27 Cholinesterase deficiency No 03/05/25 09:27 You/Your Family Experience No 03/05/25 09:27 fever (hyperthermia) with Relationship Recent Exposure to Contagious No 04/02/25 07:19 Disease Does patient have nerve No 03/05/25 09:27 stimulator Patient instructed to have device shut off --Does patient have Pacemaker No 04/02/25 07:19 or ICD? When Was Last Pacemaker Check QUESTION #4 FULL TEXT: You/Your Family Experience fever (hyperthermia) with Anesthesia Last Oral Intake Last Oral intake: Last Oral Intake NPO since 04:00 04/02/25 07:19 Meds taken in AM with sips of Yes 04/02/25 07:19 water? Meds patient instructed to see med list 04/02/25 07:19 take am of surgery PONV PONV - plating department helper: PONV - plating department helper Female No 03/05/25 09:27 HX of Motion Sickness Yes 03/05/25 09:27 HX of N/V After Surgery No 03/05/25 09:27 Non-Smoker Yes 03/05/25 09:27 Duration of Surgery greater Yes 03/05/25 09:27 than 60 minutes Number of Risk Factors 3 03/05/25 09:27 PONV Score Moderate Risk 03/05/25 09:27 Height & Weight Height & Weight: Anesthesia: Height & Weight Height 6 ft 2 in 04/02/25 07:19 Weight: 138.7 kg 04/02/25 07:19 Body Mass Index (BMI) 39.2 04/02/25 07:19 Respiratory Assessment Respiratory Assessment - plating department helper: Respiratory Tract Infection Hx - plating department helper Hx Respiratory Tract Infection No 03/05/25 09:27 STOP Sleep Apnea STOP Sleep Apnea - plating department helper: STOP Sleep Apnea - plating department helper Hx Hypertension Yes 03/05/25 09:27 Hx Sleep Apnea Yes 03/05/25 09:27 CPAP Yes: non compliant 03/05/25 09:27 BIPAP No 03/05/25 09:27 Do you snore loudly (louder than talking or can be heard Do you often feel tired/ fatigued/ sleepy during daytime? Has anyone observed you stop breathing during sleep? STOP Results Positive 03/05/25 09:27 QUESTION #5 FULL TEXT : Do you snore loudly (louder than talking or can be heard through closed doors)? Tobacco Use History Tobacco Use History - plating department helper: Tobacco Use History - plating department helper Tobacco Use Non-smoker 08/23/23 09:57 Smoking Status Never smoker 03/05/25 09:27 Hx Tobacco Use No 03/05/25 09:27 Years Smoking Packs Smoked per Day Smoking Cessation Date was within the last 15 years Hx Smoking Cessation Date Hx Smoking Cessation Counseling Hematologic Medial History Hematologic Hx - plating department helper: Hematologic Medical Hx - hydrotherapist Hx of Blood Transfusion Yes 03/05/25 09:27 Hx of Transfusion in last 3 No 03/05/25 09:27 Months Date of Last Transfusion (if within last 3 months) Ever experience any problems No 03/05/25 09:27 with transfusion(s)? Specify any problems Hx of Preganancy in last 3 N/A 03/05/25 09:27 Months Nurse Filling Out Transfusion NBUCHER 03/05/25 09:27 & Questions: Date: 03/05/25 03/05/25 09:27 Time: 09:35 03/05/25 09:27 Patient unable to answer at this time (ie. confused, unrespo /Reproduction History /Reproductive History - plating department helper: /Reproductive Hx- plating department helper Hx Now No 03/05/25 09:27 Gestational Age (in weeks): EDC: Hx Hx Para Hx Section SAB No 03/05/25 09:27 Does the father of the baby or his family experience fever w Father of the baby Malignant Hypertension history comment Active Medications Active Medications: Current Medications Generic Name Dose Route Start Last Admin Trade Name Freq PRN Reason Stop Dose Admin Acetaminophen 1,000 mg 04/02/25 12:00 04/02/25 07:13 Acetaminophen 500 Mg Tablet PO 04/02/25 12:01 1,000 mg PREOP ONE Administration Acetaminophen 1,000 mg 04/02/25 07:00 Acetaminophen 500 Mg Tablet PO Q8H MELINA Apixaban 5 mg 04/03/25 10:00 Apixaban 5 Mg Tablet PO BID MELINA Clopidogrel Bisulfate 75 mg 04/03/25 10:00 Clopidogrel Bisulfate 75 Mg Tablet PO DAILY MELINA Tranexamic Acid 2,000 mg/ 0 mg 04/02/25 12:00 Sodium Chloride 100 ml OPERA.SITE 04/02/25 12:01 X1 ONE Sodium Chloride 77.9 ml/ 0 ml 04/02/25 12:00 Ropivacaine 200 mg/ OPERA.SITE 04/02/25 12:01 Epinephrine HCl 0.6 mg/ INTRAOP ONE Ketorolac Tromethamine 30 mg/ Morphine Sulfate 5 mg Dexamethasone Sodium Phosphate 10 mg 04/02/25 12:00 Dexamethasone 10 Mg/Ml Vial IV 04/02/25 12:01 INTRAOP ONE Enteral Nutritional Formula 237 ml 04/02/25 08:00 Ensure Surgery 237 Ml Liquid PO TIDCM MELINA Famotidine 20 mg 04/02/25 10:00 Famotidine 20 Mg Tablet PO DAILY MELINA Gabapentin 600 mg 04/02/25 12:00 04/02/25 07:14 Gabapentin 600 Mg Tablet PO 04/02/25 12:01 600 mg PREOP ONE Administration Lactated Ringer's 1,000 mls @ 999 mls/hr 04/02/25 12:00 04/02/25 07:12 IV 04/02/25 13:00 999 mls/hr .Q1H1M MELINA Administration Cefazolin Sodium 3 gm/ Sodium 115 mls @ 150 mls/hr 04/02/25 12:00 Chloride IV 04/02/25 12:45 INTRAOP ONE Lactated Ringer's 1,000 mls @ 999 mls/hr 04/02/25 12:00 IV 04/02/25 13:00 .Q1H1M MELINA Lactated Ringer's 1,000 mls @ 125 mls/hr 04/02/25 12:00 IV 04/02/25 19:59 .Q8H MELINA Magnesium Sulfate 1 gm/ 102 mls @ 408 mls/hr 04/02/25 12:00 04/02/25 07:12 Dextrose IV 04/02/25 12:14 408 mls/hr PREOP ONE Administration Lactated Ringer's 1,000 mls @ 15 mls/hr 04/02/25 06:45 04/02/25 06:45 IV Not Given .Q48H MELINA Cefazolin Sodium 1 gm in 50 mls @ 100 mls/hr 04/02/25 07:00 IV 04/02/25 15:29 Q8H [facility] Insulin Human Lispro 1 - 6 unit 04/02/25 12:00 Insulin Lispro 100 Unit/Ml Insuln.Pen SC 04/02/25 18:00 Q4H PRN PRN BG>/= 180, SEE PROTOCOL Protocol Morphine Sulfate 2 - 4 mg 04/02/25 06:56 Morphine 2 Mg/Ml Syringe IV Q2H PRN PRN Pain Score 4-10 Ondansetron HCl 4 mg 04/02/25 06:56 Ondansetron 4 Mg/2 Ml Vial IV Q6H PRN PRN NAUSEA/VOMITING Oxycodone HCl 5 - 10 mg 04/02/25 06:56 Oxycodone 5 Mg Tablet PO Q4H PRN PRN Pain Score 4-10 Promethazine HCl 12.5 mg 04/02/25 06:56 Promethazine 25 Mg Tablet PO Q6H PRN PRN NAUSEA/VOMITING Promethazine HCl 12.5 mg 04/02/25 06:56 Promethazine 25 Mg/Ml Syringe IM Q6H PRN PRN NAUSEA/VOMITING Scopolamine HBr 1 patch 04/02/25 07:00 04/02/25 07:16 Scopolamine 1mg/72hr Patch TD 04/03/25 06:57 1 patch Q3D MELINA Administration Senna/Docusate Sodium 2 tablet 04/02/25 10:00 Senna/Docusate Sodium 1 Tablet PO BID [facility] PFSH Medical History (Updated 03/16/25 @ 11:42 by Sofía Guerra) Gout DVT (deep venous thrombosis) History of hiatal hernia Left rotator cuff tear History of echocardiogram Anxiety Excessive bleeding PONV (postoperative nausea and vomiting) Sleep apnea History of stress test Wears glasses Depression High cholesterol Gastric reflux Difficulty swallowing Non-smoker COPD (chronic obstructive pulmonary disease) Shortness of breath on exertion Leg cramps History of edema Hypertension Cardiology follow-up encounter History of heart attack History of atrial fibrillation Chest pain Sensorineural hearing loss, bilateral Dysphagia Epidermal inclusion cyst NSVT (nonsustained ventricular tachycardia) Screening for malignant neoplasm of intestine Cholelithiasis with chronic cholecystitis COPD (chronic obstructive pulmonary disease) CAD (coronary artery disease) Atrial fibrillation severe degenerative arthritis of right hip Rheumatoid arthritis Obstructive sleep apnea syndrome history of ischemic stroke HTN (hypertension) Hyperlipidemia Esophageal reflux Coronary atherosclerosis of [place] coronary vessel Home Medications ?Medication ?Instructions ?Recorded ?Last Taken ?Type minoxidil 10 mg tablet 5 mg PO BID blood pressure 10/05/19 04/01/25 History nitroglycerin 0.4 mg sublingual 0.4 mg sublingual Q5-15M PRN cp 10/05/19 Unknown History tablet clopidogrel 75 mg tablet (Plavix) 75 mg PO DAILY 09/09/21 03/27/25 History apixaban 5 mg tablet (Eliquis) 5 mg PO BID 10/30/21 03/27/25 History isosorbide mononitrate 30 mg 60 mg PO DAILY 01/07/22 05/20/23 History tablet,extended release 24 hr Held on 04/02/25. Instructions: MD Ordered metoprolol succinate 50 mg 25 mg PO DAILY 04/07/23 04/02/25 04:00 History tablet,extended release 24 hr torsemide 20 mg tablet 20 mg PO DAILY 04/07/23 04/01/25 History amiodarone 200 mg tablet 200 mg PO DAILY 05/20/23 04/02/25 04:00 History allopurinol 100 mg tablet 100 mg PO DAILY 03/05/25 04/01/25 History amlodipine 5 mg tablet 5 mg PO DAILY 03/05/25 04/02/25 04:00 History aspirin 81 mg capsule 81 mg PO DAILY 04/02/25 04/01/25 History Allergy/AdvReac Type Severity Reaction Status Date / Time Penicillins Allergy Hives Verified 04/02/25 06:58 Family History Sister Cancer ovarian Diabetes Brother Diabetes Mother Heart disease Hypertension Father Prostate cancer Surgical History (Updated 03/05/25 @ 10:02 by Dena Ospina) History of right shoulder replacement History of hernia repair History of bilateral cataract extraction History of thrombectomy History of repair of rotator cuff History of carpal tunnel release of both wrists History of arthroscopic knee surgery S/P PTCA (percutaneous transluminal coronary angioplasty) Hx of cholecystectomy History of colonoscopy (~2014) History of esophagogastroduodenoscopy (EGD) (~2014) History of knee joint replacement History of total right hip arthroplasty History of inguinal hernia repair History of left shoulder replacement History of total left hip arthroplasty History of coronary angioplasty History of heart artery stent History of cardiac catheterization Social History household members: none Smoking Status: Never smoker alcohol intake: never substance use type: does not use Review of Systems (Anesthesia) ROS Narrative System reviewed and no additional complaints, except as documented. Physical Exam Const alert and oriented x3 Nutritional Appearance: obese Resp normal respiratory effort, normal air movement and clear to auscultation bilaterally Cardio regular rate, regular rhythm and no murmurs
[2025-04-02] MEDS: Midazolam 2 MG/2 ML Syringe IV (08:12)
[2025-04-02] MEDS: Cefazolin 1 GM/5 ML Vial 3 GM IV (08:38)
[2025-04-02] MEDS: Lidocaine 1% (5 ml sdv) 5 ML Vial 10 ML IV (08:43)
[2025-04-02] MEDS: fentaNYL 100 MCG/2 ML Ampul IV (09:52)
[2025-04-02] MEDS: TXA 2000mg in NS 100ml (Placed in Wound) OPERA.SITE (09:53)
[2025-04-02] MEDS: JPS (Morphine 10mg/ml) OPERA.SITE (09:57)
--- NOTE | 2025-04-02 10:01 | PCM.OPRPT ---
Operative Report (Standard) Operative Information Date of Procedure: 04/02/25 Pre-Operative Diagnosis: Left knee primary osteoarthritis Post-Operative Diagnosis: Left knee primary osteoarthritis Surgery/Procedure Performed: Left knee minimally invasive robotic assisted total arthroplasty acquisitions logistics analyst: Yes Ton Container Filler: Brandy Nunn Tasks completed by assistant inventory manager: Other (See body of operative report) Additional administrative assistant office manager?: No Type of Anesthesia: General RN Documented Start/Stop Times: Operation Date: 04/02/25 08:45 Case Time Into Pre-Op 04/02/25 06:31 Anesthesia Start 04/02/25 08:38 Into Room 04/02/25 08:38 Out of Pre-Op 04/02/25 08:38 Procedure Start 04/02/25 09:04 Procedure End 04/02/25 10:50 Anesthesia End 04/02/25 10:54 Out of Room 04/02/25 10:54 Into Recovery 04/02/25 10:56 Procedure Start Time: 09:04 Procedure Stop Time: 10:50 Select all DRAINS/GRAFTS/IMPLANTS that apply: Prosthetic device Prosthetic device details: See body of operative report Special Medications: 2 g Ancef, 1 g TXA at incision, 1 g TXA closure, 10 mg Decadron, joint cocktail (5 mg Duramorph, 30 mL of 0.5% Ropivicaine, 1000 units of epinephrine, 30 mg of Toradol) Estimated Blood Loss: 150 Fluids Replaced: 1000 ml crystalloid Specimen collected: Yes Description of specimen(s) removed: Bony cuts Description of surgery: Implants used: 1. [place] size 8 triathlon cruciate retaining distal femoral press-fit component 2. Jeanette size 7 press-fit tritanium tibial baseplate 3. [place] X3 9 mm CS polyethylene 4. [place] X3 40 mm cemented asymmetric patella Brief history operative indications: 69-year-old m with history of left knee osteoarthritis with radiographic findings with loss of joint space, osteophyte formation and subchondral sclerosis. Failed conservative measures as mentioned in the H&P. Discussion of total knee arthroplasty as well as risk and benefits were discussed the patient including but not limited to blood loss, DVTs, PEs, neurovascular damage, general risk of anesthesia including loss of life, and stiffness or instability were discussed with patient. Patient demonstrated understanding and was able to sign informed consent. Procedure: On the date of procedure patient's left lower extremity was marked in the preoperative area. The patient was then taken back to the operating room where the patient was placed on the table in the supine position. All bony prominences were identified a well-padded. Anesthesia assumed control of the C-spine and airway and remained controlled throughout the remainder of the procedure. A tourniquet was placed on the left upper thigh and the leg was prepped in a sterile fashion. The surgeon then scrubbed at this time .Upon reentering the room left lower extremity was draped in a standard orthopedic fashion. A timeout was then called and everyone agreed upon the side, the site, the procedure to be performed, patient's identity and antibiotics given. Esmarch bandage was used to exsanguinate the extremity and the tourniquet was placed up to 250 mmHg with the knee in flexion. A midline skin incision was made and sharp dissection was taken down through skin subcutaneous tissue and fat. The standard medial parapatellar incision was made and the patella was subluxed laterally. An Appropriate deep MCL release was done and the fat pad was resected. Our attention was then directed to the patella. The patella was everted and a flat resection was made. The knee was then flexed up in 2 femoral pins were placed inside the incision and 2 tibial pins were placed outside the incision in the medial tibia bicortically. Once this was completed the 2 checkpoints in the femur and tibia were placed. Knee was then flexed up and the bony landmarks were registered. Once this was completed knee was taken through range of motion and manually stressed allowing us to a plan for an appropriate tibial cut. The robotic arm was brought into the field sterilely and checkpoint and saw were registered. Based on the patient's deformity the tibial cut was made neutral to the tibial axis. At this time the tensioner was then placed in the joint and ligament tension was checked at 90 degrees and full extension. Based on the patient's ligamentous tension appropriate adjustments were made to the operative plan and ligament releases were done. Once we were happy with our operative plan with balanced flexion and extension gaps our attention was directed to the femur. The robot was brought into the field sterilely and registered. Posterior condylar cuts, anterior chamfer cuts and anterior cuts were appropriately made for a size 8 femur. When these were completed the saws were switched out in the distal femoral and posterior chamfer cuts were made. Protecting the soft tissue throughout this time. A size 7 tibial base plate was selected. the knee was flexed to 90 degrees and the soft tissues and posterior osteophytes were removed from the joint. 40 cc of the periarticular injection was injected into the posterior medial corner of the joint. The appropriate trials were then placed on the femur and tibia. A trial polyethylene was trialed to ensure proper balancing and stability of the knee. The appropriate tibial internal rotation was then marked with a bovie. Our attention was then directed to the patella. The lug holes were drilled and the patella trial was placed. Patellar tracking was checked and deemed appropriate. Once we were happy lug holes were drilled for the femur and trial components were removed. The tibia was subluxed and pinned into place and the keel was punched and drilled appropriately. Final components were verified and opened. The wound was copiously irrigated with normal saline. When the cement was ready the components were impacted into place starting with the tibia then the femur, finally the patella was compressed into place and removed excess cement. The trial poly component was placed and the knee was placed in full extension. Once the the implants were secured, the tracking, alignment and balance were verified and a size 9 mm CS polyethylene component was placed. Once the final components were placed a 3-minute dilute Betadine lavage was performed followed by an Irrisept lavage was performed and the wound was copiously irrigated with normal saline solution and the periarticular injection was given. The wound was closed in a layer lyon fashion using #1 vicryl interrupted sutures for the arthrotomy, 2-0 interrupted Vicryl suture for the subcuticular layer and renay for final skin closure. A sterile compressive dressing was then placed. The patient was then awakened from anesthesia, transferred to the [facility] and transferred to the PACU for recovery. Post op plan DVT ppx: Resume Eliquis postop day 1, thigh high compression stockings Follow up: in office in 2 weeks for wound check PT: to start POD #0 at hospital, outpatient PT should be arranged. My physician administrative assistant office manager was a vital part of this case, they was important because there was not another skilled set of hands available to their training and aptitude needed for safe and appropriate completion of this case. They were important in appropriate retraction during the case, and protection of soft tissues during bony cuts. In particular the experience and skill of this administrative assistant office manager made for safe retraction and exposure during implantation of medical implants without damage to vital soft tissues or structures. His intimate knowledge of the case and my steps aided in safe and expedient completion of the procedure as well as appropriate position of the leg during the case. He was also vital in assisting with closure under my direct supervision. Due to the complexity of this case robotic arm was used to assist in the surgery to improve accuracy and clinical outcomes. Surgical Findings: Stage IV osteoarthritis. Stable knee with good patella tracking Complications Complications: No Admit VTE Documentation VTE Present on Admission: No VTE Mechan Device Prophylaxis: SCD's and Thigh High MARTIN Hose VTE Pharm Prophylaxis ordered?: Yes
--- NOTE | 2025-04-02 11:01 | PCM.POST.ANE ---
Anesthesia: Postop Eval I Current Vital Signs Temperature: 98.6 F Pulse Rate: 79 Blood Pressure: 161/74 Respiratory Rate: 16 Pulse Ox: 94 Assessment Airway patent: Yes Spontaneous unlabored respirations: Yes nausea: No Vomiting: No Anesthesia Complication: No Fluid Hydration Crystalloid volume administer (ml): 1,400 Total IV fluid infused: 1,400 Progress Note Anesthesia document: Postop Eval 1 completed: Yes
--- NOTE | 2025-04-02 11:45 | CPS ---
Pt is noncompliant with CPAP at home and doesn't want to wear one of our machines but he knows it is available if he changes his mind.
[2025-04-02] MEDS: LR 1,000 ML - 125 ML/HR (POST BOLUS) POST OP IV (12:04)
[2025-04-02] MEDS: 0.9% Saline Lock 10 ML Syringe IV (12:15)
--- NOTE | 2025-04-02 13:30 | PN_ITS ---
Subjective Subjective Patient is a 69-year-old male with past medical history as outlined was admitted to the service of orthopedic surgery for a left total knee arthroplasty. He had the procedure on 04/02/2025. Hospitalist service was consulted for medical management. Patient was seen in his room after the surgery. He complained of feeling a bit groggy likely due to the effects of the anesthesia. He denied any fever, chills, and felt his pain was well-controlled. He denied any fever, any chills, any nausea or vomiting or any other symptoms. Review of systems otherwise negative. He is on room air and is hemodynamically stable. Objective Data Objective Data Vital Signs: Vital Signs Temp Pulse Resp BP Pulse Ox O2 Del Method O2 Flow Rate 97.7 F L 62 18 124/62 H 93 Room Air 4 04/02/25 11:52 04/02/25 11:52 04/02/25 11:52 04/02/25 11:52 04/02/25 11:52 04/02/25 11:52 04/02/25 11:15 Oxygen Flow Rate (L/min) 4 Oxygen Delivery Method Room Air Weight: 305 lb 12.498 oz Body Mass Index (BMI) 39.2 Intake & Output: Intake and Output for Last 24 Hours 03/31/25 04/01/25 04/02/25 23:59 23:59 23:59 Intake Total 2101 Output Total 150 / 150 Balance 1951 / 1951 Lab / Micro Data Labs: Laboratory Results - last 24 hr 04/02/25 07:04: POC Glucose 139 H Micro: Microbiology 03/06/25 08:31 Swab (Method) Nasal Screen MRSA/MSSA - Final Radiography Diagnostic Testing: Radiology Impression Knee X-Ray 04/02/25 06:56 IMPRESSION: Status post left total knee replacement. There is good alignment. Postoperative soft tissue changes. Reading Location: [place] [id number] Physical Exam Const alert and no apparent distress General Appearance: cooperative Orientation / Consciousness: lethargic HEENT normocephalic, head/scalp atraumatic, moist oral mucous membranes and oropharynx normal Neck supple and no JVD Lymph Lymphatic: no lymphedema noted Resp normal respiratory effort, normal air movement and clear to auscultation bilaterally Resp Narrative: on room air Cardio regular rate, regular rhythm, S1 normal heart sound, S2 normal heart sound and no murmurs GI normal to inspection, nondistended, normoactive bowel sounds, soft to palpation and non-tender Extremity Extremity Narrative: intact dressing over left knee Skin Skin Narrative: as under extremities Neuro Neuro Narrative: weakness in LLE due to left total knee replacement today Motor Exam: general weakness Psych thought process normal and cooperative Appearance: appropriate Assessment & Plan Assessment/Plan (1) History of cardiac catheterization: (2) History of heart artery stent: PLAN: Plan #Left knee osteoarthritis * S/p left knee minimally invasive robotic assisted total arthroplasty * Today's postop day 0. Management as per orthopedic surgery per primary service * PT OT on board. Fall precautions. * P.o. Tylenol, p.o. oxycodone and IV morphine as needed for pain * Encourage incentive spirometry use. * #CAD s/p stents * Patient states he has had about 5 heart attacks and 22 stents in total. * On aspirin and Plavix. Not on statin. Unclear why. Also on imdur * #History of atrial fibrillation: On Eliquis and metoprolol #Hypertension: On metoprolol and torsemide. Also minoxidil. DVT prophylaxis: as per primary service, back on his home dose of eliquis. Thank you for the courtesy of the consult. THe hospitalist service will continue to follow with you. Charges/Coding Visit Charges Inpatient E&M: 64114 Subs Hosp L2
--- NOTE | 2025-04-02 13:44 | POSTOPAN2_ITS ---
Anesthesia Postop Eval I Sum Postop Eval Completion status Anesthesia document: Postop Eval 1 completed: Yes Anesthesia Postop Eval I Summary Anesthesia Postop Eval I Summary: Anesthesia Postop Eval I: Assessment Summary Airway patent Yes 04/02/25 11:01 [email or web address] Spontaneous unlabored Yes 04/02/25 11:01 [email or web address] respirations Mental status nausea No 04/02/25 11:01 [email or web address] [email or web address] Vomiting No 04/02/25 11:01 [email or web address] [email or web address] Anesthesia Postop Eval I: Fluid Summary Crystalloid volume administer 1,400 04/02/25 11:01 [email or web address] [email or web address] (ml) Colloids volume administered ( ml) Blood Product volume administered (ml) Total IV fluid infused 1,400 04/02/25 11:01 [email or web address] Anesthesia Postop Eval I: Summary Notes Anesthesia Complication No 04/02/25 11:01 [email or web address] [email or web address] Anesthesia Complication Comment: Post-operative progress note Anesthesia: Postop Eval II Evaluation Mental status: Awake Pain Level: 0 nausea: No Vomiting: No Complications Anesthesia Complication: No
--- NOTE | 2025-04-02 13:44 | PCM.POSTANE2 ---
Anesthesia Postop Eval I Sum Postop Eval Completion status Anesthesia document: Postop Eval 1 completed: Yes Anesthesia Postop Eval I Summary Anesthesia Postop Eval I Summary: Anesthesia Postop Eval I: Assessment Summary Airway patent Yes 04/02/25 11:01 DEVELOPMENT [email or web address] Spontaneous unlabored Yes 04/02/25 11:01 DEVELOPMENT [email or web address].[email or web address] respirations Mental status nausea No 04/02/25 11:01 DEVELOPMENT [email or web address].[email or web address] Vomiting No 04/02/25 11:01 DEVELOPMENT [email or web address].[email or web address] Anesthesia Postop Eval I: Fluid Summary Crystalloid volume administer 1,400 04/02/25 11:01 DEVELOPMENT [email or web address].TNES (ml) Colloids volume administered ( ml) Blood Product volume administered (ml) Total IV fluid infused 1,400 04/02/25 11:01 DEVELOPMENT [email or web address] Anesthesia Postop Eval I: Summary Notes Anesthesia Complication No 04/02/25 11:01 DEVELOPMENT [email or web address] Anesthesia Complication Comment: Post-operative progress note Anesthesia: Postop Eval II Evaluation Mental status: Awake Pain Level: 0 nausea: No Vomiting: No Complications Anesthesia Complication: No
--- NOTE | 2025-04-02 15:59 | CASEMGMT ---
BULLOCK Met with patient to complete BULLOCK form. BULLOCK form and its content were verbally explained and patient's questions were answered to the best of my ability.? Patient voiced understanding and signed BULLOCK form.? Patient provided a copy of signed BULLOCK form and original placed in patient's chart.? Patient had no further questions. Marylu Johnson, Discharge Planning Asst
[2025-04-02] MEDS: Cefazolin 1 GM/50 ML BAG IV (16:08)
[2025-04-02] MEDS: Senna/Docusate Sodium 1 Tablet 2 TABLET PO (21:34)
[2025-04-03] VITALS (8 sets, daily range): BP systolic 115–146; BP diastolic 69–77; PULSE 63–71; RESP 15–18; TEMP 36.4–36.8; O2SAT 75–100
[2025-04-03] MEDS: Cefazolin 1 GM/50 ML BAG IV (00:06)
[2025-04-03 06:52] LABS: Hematocrit 35.1 % (40-54); Hemoglobin 11.7 g/dL (13.0-16.5); Mean Corp Hgb Conc 33.3 g/dL (32-36); Mean Corpuscular Volume 91.9 fL (80-94); Mean Platelet Vol. 9.5 fl (6.2-12.0); Platelet Count 265 K/mm3 (150-450); RBC Distribution Width CV 13.4 % (11.6-14.6); RBC Distribution Width SD 45.4 fl (35.1-43.9); Red Blood Count 3.82 M/mm3 (4.6-6.2); White Blood Count 19.6 K/mm3 (4.4-11.0)
[2025-04-03 07:18] LABS: Anion Gap 10 (5-15); BUN 34 mg/dL (4-19); BUN/Creat Ratio 18.5 RATIO (10-20); Calcium,Total 8.5 mg/dL (7.6-11.0); Carbon Dioxide 20.2 mmol/L (21.0-32.0); Chloride 103 mmol/L (98-108); Estimated Creatinine Clearance 57.10 ml/min (50-250); Glucose 140 mg/dL (70-99); Potassium 4.8 mmol/L (3.3-5.1)
[2025-04-03] MEDS: Senna/Docusate Sodium 1 Tablet 2 TABLET PO ×2 (08:39→21:53)
[2025-04-03] MEDS: APIXABAN 5 MG TABLET PO ×2 (08:39→21:53)
--- NOTE | 2025-04-03 08:53 | PN.ORTHO_ITS ---
Subjective Subjective Patient is sitting comfortably in bed side chair upon examination. Patient states he is doing well at this time he feels like his pain is adequately controlled at this time. Patient states that he does have occasional dizziness but is better than yesterday. Patient does live alone but has family that is planning to check in on him daily. Patient denies any nausea or vomiting. Patient denies any shortness of breath, chest pain, calf pain. Patient denies any new numbness or tingling. Patient denies any adverse events overnight. Patient was on some oxygen this morning due to O2 drop while sleeping. Patient states that he is supposed to be on a CPAP machine but he has tried to and cannot use them. Objective Data Objective Data Vital Signs: Vital Signs Temp Pulse Resp BP Pulse Ox O2 Del Method O2 Flow Rate 98.3 F 63 18 115/72 96 Nasal Cannula 2 04/03/25 07:41 04/03/25 07:41 04/03/25 07:41 04/03/25 07:41 04/03/25 07:41 04/03/25 07:41 04/03/25 07:41 Oxygen Flow Rate (L/min) 2 Oxygen Delivery Method Nasal Cannula Weight: 138.7 kg Body Mass Index (BMI) 39.2 Intake & Output: Intake and Output for Last 24 Hours 04/01/25 04/02/25 04/03/25 23:59 23:59 23:59 Intake Total 3392 / 3592 450 / 450 Output Total 150 / 150 Balance 3242 / 3442 450 / 450 Lab / Micro Data 04/03/25 06:31 04/03/25 06:31 Labs: Laboratory Results - last 24 hr 04/03/25 06:31: WBC 19.6 H, RBC 3.82 L, Hgb 11.7 L, Hct 35.1 L, MCV 91.9, MCH 30.6, MCHC 33.3, RDW Std Deviation 45.4 H, RDW Coeff of Santhosh 13.4, Plt Count 265, MPV 9.5, Sodium 133, Potassium 4.8, Chloride 103, Carbon Dioxide 20.2 L, Anion Gap 10, BUN 34 H, Creatinine 1.81 H, Estim Creat Clear Calc 57.10, Est GFR (MDRD) Non-Af 40 L, BUN/Creatinine Ratio 18.5, Glucose 140 H, Calcium 8.5 Micro: Microbiology 03/06/25 08:31 Swab (Method) Nasal Screen MRSA/MSSA - Final Radiography Diagnostic Testing: Radiology Impression Knee X-Ray 04/02/25 06:56 IMPRESSION: Status post left total knee replacement. There is good alignment. Postoperative soft tissue changes. Reading Location: [facility] Physical Exam Narrative MARTIN hose in place bilaterally SCDs in place bilaterally Dressing is clean, dry, intact. Distal dressing with minimal bloody drainage. Dorsiflexion and plantarflexion are performed actively without pain or restriction Sensation intact light touch. Neurovascularly intact overall. Negative Homans bilaterally. Const alert, oriented x3 and no apparent distress Assessment & Plan Assessment/Plan (1) Status post total left knee replacement: PLAN: Status post left knee robotic assisted total arthroplasty day 1 DVT prophylaxis: Patient will be taking his regular dose of Eliquis postoperatively as well as wearing MARTIN hose for 2 weeks postoperatively. Patient was educated to remove MARTIN hose for showering and at nighttime. Patient denies any history of DVT or PE. Patient was educated on Eliquis to avoid any anti-inflammatory use. Patient voiced understanding. Pain medications: Patient will be on Tylenol 1000 mg every 8 hours, oxycodone as needed for postoperative pain. We will avoid anti-inflammatory use in this patient as patient is on Eliquis postoperatively. OARRS report was reviewed and risk of narcotic pain medication was reviewed. Patient was educated not to operate motor ball or heavy machinery while taking narcotic pain medications. Patient voiced understanding. H&H: 11.7/35.1. Vital signs are stable patient is afebrile at this point. Reactive leukocytosis: White blood cell count is currently 19.6. Patient did receive Decadron intraoperatively. Patient's vital signs are stable open patient is afebrile. Constipation: Patient was instructed to take senna until her first bowel movement and then can take as needed. Patient was educated if they have not had a bowel movement in 3 days to contact our office for reevaluation. Patient voiced understanding. Physical therapy: Patient will continue to be weightbearing as tolerated with walker with physical therapy. Patient does have outpatient physical therapy established. Incentive spirometry: Patient was encouraged to use his incentive spirometer every hour that they are awake for the first week to exercise lungs and decrease risk postoperative lung infection. Dressings: Patient was educated he can get dressing wet on postop day 1. Patient was educated to remove dressing on postop day 5. Patient was educated to avoid doing any soaking or submerging for 6 weeks. Patient was educated to avoid any lotions or oils directly on incision for 6 weeks. Patient is to follow-up for postoperative instructions. Hospitalist is involved at this point. Will have medicine see patient today. Patient will have a 2-week follow-up appointment with our office for wound care and staple removal. Disposition: I would like patient to work with physical therapy today and see how he does with ambulating as well as with his dizziness. I would like patient to be comfortable and be cleared by physical therapy prior to going home as he lives alone. Patient was educated if he does not feel comfortable with going home we may had to look into going somewhere for a short period of time after surgery. Patient voiced understanding. Patient states that he does have family checking in daily but he would like to talk to his family before making decision. Patient will continue to be weightbearing as tolerated with his walker. Patient does have 2-week follow-up visit scheduled with our office. We will plan to follow-up with patient to see how physical therapy goes and check in on patient's dizziness. Patient was encouraged to call with any questions, concerns, new problems. All questions were answered to best my ability.
--- NOTE | 2025-04-03 11:35 | PN_ITS ---
Subjective Subjective Patient seen and examined with his nurse by his bedside. He had no active complaint. Pain was fairly well-controlled. Review of systems otherwise negative. He has remained hemodynamically stable. WBC is up to 19.6 today but of note patient did receive some steroids. Objective Data Objective Data Vital Signs: Vital Signs Temp Pulse Resp BP Pulse Ox O2 Del Method O2 Flow Rate 98.3 F 63 18 115/72 96 Nasal Cannula 2 04/03/25 07:41 04/03/25 07:41 04/03/25 07:41 04/03/25 07:41 04/03/25 07:41 04/03/25 07:41 04/03/25 07:41 Oxygen Flow Rate (L/min) 2 Oxygen Delivery Method Nasal Cannula Weight: 305 lb 12.498 oz Body Mass Index (BMI) 39.2 Intake & Output: Intake and Output for Last 24 Hours 04/01/25 04/02/25 04/03/25 23:59 23:59 23:59 Intake Total 3392 / 3592 450 / 450 Output Total 150 / 150 Balance 3242 / 3442 450 / 450 Lab / Micro Data 04/03/25 06:31 04/03/25 06:31 Labs: Laboratory Results - last 24 hr 04/03/25 06:31: WBC 19.6 H, RBC 3.82 L, Hgb 11.7 L, Hct 35.1 L, MCV 91.9, MCH 30.6, MCHC 33.3, RDW Std Deviation 45.4 H, RDW Coeff of Santhosh 13.4, Plt Count 265, MPV 9.5, Sodium 133, Potassium 4.8, Chloride 103, Carbon Dioxide 20.2 L, Anion Gap 10, BUN 34 H, Creatinine 1.81 H, Estim Creat Clear Calc 57.10, Est GFR (MDRD) Non-Af 40 L, BUN/Creatinine Ratio 18.5, Glucose 140 H, Calcium 8.5 Micro: Microbiology 03/06/25 08:31 Swab (Method) Nasal Screen MRSA/MSSA - Final Physical Exam Const alert, oriented x3 and no apparent distress General Appearance: cooperative HEENT normocephalic, head/scalp atraumatic, moist oral mucous membranes and oropharynx normal Neck supple and no JVD Lymph Lymphatic: no lymphedema noted Resp normal respiratory effort, normal air movement and clear to auscultation bilaterally Cardio regular rate, regular rhythm, S1 normal heart sound, S2 normal heart sound and no murmurs GI normal to inspection, nondistended, normoactive bowel sounds, soft to palpation and non-tender Extremity Extremity Narrative: intact dressing over left knee Skin Skin Narrative: as under extremities Neuro Neuro Narrative: weakness in LLE due to left total knee replacement Motor Exam: general weakness Psych thought process normal and cooperative Appearance: appropriate Assessment & Plan Assessment/Plan (1) History of cardiac catheterization: (2) History of heart artery stent: PLAN: Plan #Left knee osteoarthritis * S/p left knee minimally invasive robotic assisted total arthroplasty * Today's postop day 1. Management as per orthopedic surgery per primary service * PT OT on board. Fall precautions. * P.o. Tylenol, p.o. oxycodone and IV morphine as needed for pain * Encourage incentive spirometry use. * #CAD s/p stents * Patient states he has had about 5 heart attacks and 22 stents in total. * On aspirin and Plavix. Not on statin. Unclear why. Also on imdur * #Leukocytosis: WBC is up to 19.6 today. This is likely however due to the steroids that patient received yesterday. He has no focus of infection. Will monitor. #History of atrial fibrillation: On Eliquis and metoprolol #Hypertension: On metoprolol and torsemide. Also minoxidil. DVT prophylaxis: as per primary service, back on his home dose of eliquis. Disposition: Patient stable for discharge from hospital standpoint. Charges/Coding Visit Charges Inpatient E&M: 69339 Subs Hosp L2
--- NOTE | 2025-04-03 13:05 | CASEMGMT ---
Addendum entered by Kandi Olivo 04/03/25 13:56: Pt accepted at [facility]. Physician updated. Pt updated. SW remains available to follow. Plan: [facility] RIGO Eastman Original Note: Social Work- SW met with pt to discuss discharge planning. Pt reports that he has no one at home/lives alone and would prefer to go inpatient for additional rehab prior to returning home. Pt reports that he would like referral to Rehab Unit and does not need a list at this time. SW completed referral. SW updated physician. RIMA remains available to follow. RIGO Barrios
[2025-04-04 03:00] VITALS: BP 134/78; PULSE 68; RESP 15; TEMP 37.2; O2SAT 97
[2025-04-04] MEDS: 0.9% Saline Lock 10 ML Syringe IV ×2 (03:34→09:54)
[2025-04-04 07:47] VITALS: O2SAT 97
[2025-04-04 09:00] VITALS: BP 145/75; PULSE 72; RESP 16; TEMP 37.1; O2SAT 94
[2025-04-04] MEDS: Senna/Docusate Sodium 1 Tablet 2 TABLET PO (09:18)
[2025-04-04] MEDS: APIXABAN 5 MG TABLET PO (09:18)
[2025-04-04] MEDS: Ensure Surgery 237 ML LIQUID PO (09:26)
--- NOTE | 2025-04-04 10:38 | PN.ORTHO_ITS ---
Subjective Subjective The patient was sitting in bedside chair upon examination. Patient denies any chest pain, shortness of breath, lightheadedness, nausea or vomiting, or calf pain. Pain is controlled on medications. No adverse overnight events. Patient reports occasional dizziness but he has had this prior to the surgery. He does feel the pain has increased as well as swelling in the knee. The block has worn off. Patient had concerns with going home as he lives home alone. Patient has had approval to be discharged to the fourth floor rehab unit at [facility] [place].. Objective Data Objective Data Vital Signs: Vital Signs Temp Pulse Resp BP Pulse Ox O2 Del Method O2 Flow Rate 98.7 F 72 16 145/75 H 94 Room Air 2 04/04/25 09:00 04/04/25 09:00 04/04/25 09:00 04/04/25 09:00 04/04/25 09:00 04/04/25 09:00 04/04/25 07:47 Oxygen Flow Rate (L/min) 2 Oxygen Delivery Method Room Air Weight: 138.7 kg Body Mass Index (BMI) 39.2 Intake & Output: Intake and Output for Last 24 Hours 04/02/25 04/03/25 04/04/25 23:59 23:59 23:59 Intake Total 3392 / 3592 450 / 450 Output Total 150 / 150 Balance 3242 / 3442 450 / 450 Lab / Micro Data 04/03/25 06:31 04/03/25 06:31 Micro: Microbiology 03/06/25 08:31 Swab (Method) Nasal Screen MRSA/MSSA - Final Physical Exam Narrative Vital signs stable and afebrile. Patient is able to plantarflex and dorsiflex actively. Sensation is intact to light touch to saphenous, sural, superficial and deep peroneal, and tibial distribution. Main Mepilex dressing is clean dry and intact. Patient's distal pin site dressing has mild saturation. Negative Homans bilaterally, negative signs and symptoms of DVT. SCDs and MARTIN hose are in place bilaterally Const alert, oriented x3 and no apparent distress Assessment & Plan Assessment/Plan (1) Status post total left knee replacement: PLAN: 1. S/P left robotic assisted total knee arthroplasty POD #2 2. Continue Pain Medications: Tylenol and oxycodone. Patient's pain has been more prominent today and I do feel the block has completely worn off. We discussed the importance of appropriate pain management. He is unable to use nonsteroidal anti-inflammatories due to anticoagulation and cardiac history. 3. DVT Prophylaxis: Patient has resumed his Eliquis 5 mg twice daily postoperatively for atrial fibrillation. This will cover him for DVT prophylaxis. He will continue with the MARTIN hose for 2 weeks postoperatively. He can take those off at nighttime and showering but we would like those back on during the day. Patient is uncertain if he has had a previous DVT in the past. 4. PT/OT: Weightbearing as tolerated with walker 5. Dressing: Patient will keep the dressing on for 5 days postoperatively. Okay to remove the dressings on April 07, 2025. He is allowed to shower with this dressing. Do not submerge underwater for 6 weeks postoperatively. Once the dressing has been removed only use soap and water over the incision for 6 weeks postoperatively. No topical ointments on the incision for 6 weeks. 6. Encouraged Incentive Spirometry 7. Patient is aware of postoperative constipation that can occur from 1-3 days postoperatively. Will continue with senna 2 tablets twice daily until first bowel movement. Patient was advised if not having a bowel movement after day 3 she is to contact orthopedics so appropriate change can be made. Patient has yet to have a bowel movement but is passing gas. Recommend staying well- hydrated and getting up and moving with therapy for bowel regimen. Patient voiced understanding. 8. Continue postoperative medical treatment per medicine 9. Disposition: Plan will be for discharge to the fourth floor rehabilitation unit at [facility] [place] today. Patient will continue with above pain medications and DVT prophylaxis. We discussed the importance of physical therapy for the first 6 weeks postoperatively. Once he has been discharged from the fourth floor rehab unit I highly recommend he is getting outpatient physical therapy established. He did voiced understanding. Patient will continue with Tylenol and oxycodone for pain control. Prescription will be placed on chart. Med rec will be placed on chart for discharge planning. Patient will follow-up per postoperative instructions. He is to contact our office with any concerns or questions upon discharge. I have reviewed the [place] Automated Rx Reporting System (OARRS) report for this patient for refill pattern and other prescriber involvement as part of the appropriate surveillance for the provision of acute and chronic controlled medications. The report was requested and reviewed on the date of this entry and was considered in the prescribing process. This dictation was created using voice recognition software. Phonetic and/or grammatical errors may exist.
--- NOTE | 2025-04-04 10:45 | PCM.DC ---
Discharge Instructions DC O2, CPAP, BIPAP needs Home O2 Discharge instructions: No Dressing / Incision Discharge Activity: May Not Drive (No driving until you can walk 100 feet with use of cane and no longer using narcotics) May shower in (days): 1 (Please turn dressing away from water. Okay to get wet as long as dressing is intact to skin.) Ice area for (Minutes): 20 (Every 1-2 hours while awake[address] Please place barrier between the skin and ice pack.) Weight Bearing Status: Weight bearing as tolerated (With walker) Keep extremity elevated above heart level: Operative Extremity Dressing / Incision Call your doctor if your incision/area has: Continuous Slow Oozing, Sudden Increased Bleeding, Increased Pain/ Swelling, Increased Redness and Foul Smelling Discharge Call your doctor if you observe: Fever of 101 or Higher, Coldness, Increased Pain, Numbness or Tingling, Change in Color, Shortness of breath, Chest pain, Calf discomfort and Uncontrolled pain Remove Dressing in: 3 days (Okay to remove dressing on April 07, 2025) Additional Dressing/Incision Instructions:: Follow [facility] Post-op Instructions. Once postoperative dressing has been removed only use gentle soap and water over the incision. Do not use any ointments, Neosporin, salves, alcohol pads over the incision for 6 weeks postoperatively. Do not submerge underwater for 6 weeks postoperatively. Continue with MARTIN hose/elastic stockings for 2 weeks postoperatively. May remove at nighttime but needs to be placed back on the leg during the day. Do NOT use alcohol with narcotic pain medication. Do NOT make important decisions while taking narcotic medication. If you have problems with taking your medication (rash, itching, nausea, etc.) call the office at once. Follow Up Care Test Results: Test results from this visit will be discussed in further detail at your follow-up appointment, if applicable. Discharge Plan Admission Admit Date/Time: 04/02/25 06:56 Attending Provider: Terry Figueroa Primary Care Provider: Finn Ferrell Consulting Providers: Ella Scott Discharge Orders/Prescriptions Prescriptions: New acetaminophen 500 mg Tablet 1,000 mg PO Q8 14 Days Qty: 84 0RF Rx Instructions: Do not take more than 3000 mg Tylenol in a 24-hour period. oxycodone 5 mg Tablet 5 - 10 mg PO Q4H PRN PRN (Reason: As needed for pain) 7 Days Qty: 42 0RF sennosides-docusate sodium [Stimulant Laxative Plus] 8.6-50 mg Tablet 2 tab PO BID 2 Days Qty: 8 0RF Rx Instructions: Take until first bowel movement, then as needed Continued nitroglycerin 0.4 mg tablet, sublingual 0.4 mg SUBLINGUAL Q5-15M PRN (Reason: cp) Rx Instructions: do not exceed 3 doses per episode minoxidil 10 mg tablet 5 mg PO BID Patient Comments: TAKE ONE-HALF TABLET BY MOUTH TWICE DAILY Eliquis 5 mg tablet 5 mg PO BID metoprolol succinate 50 mg tablet extended release 24 hr 25 mg PO DAILY torsemide 20 mg tablet 20 mg PO DAILY clopidogrel [Plavix] 75 mg Tablet 75 mg PO DAILY isosorbide mononitrate 30 mg Tablet Extended Release 24 Hr 60 mg PO DAILY amiodarone 200 mg tablet 200 mg PO DAILY Patient Comments: TAKE ONE TABLET BY MOUTH DAILY amlodipine 5 mg tablet 5 mg PO DAILY allopurinol 100 mg tablet 100 mg PO DAILY aspirin 81 mg capsule 81 mg PO DAILY Referrals / Follow Up: Finn Ferrell MD [Primary Care Provider, Family Practice] Kenan Crane PA-C [Med Staff - [facility] Prof, Orthopedics] - 04/16/25 9:30 am Disposition Disposition (needs filled in before D/C Order can be placed): Inpatient Rehab Unit/Facility
--- NOTE | 2025-04-04 10:56 | PHA.DC.MR.R ---
Pharmacy [facility] Reconciliation Pharmacy Service has performed discharge medication reconciliation for this patient. The patient's discharge medication list was reviewed for discrepancies and discrepancies were resolved. Medications at Discharge Home Medications minoxidil 10 mg tablet 5 mg PO BID blood pressure 10/05/19 nitroglycerin 0.4 mg sublingual tablet 0.4 mg sublingual Q5-15M PRN cp 10/05/19 clopidogrel 75 mg tablet (Plavix) 75 mg PO DAILY 09/09/21 apixaban 5 mg tablet (Eliquis) 5 mg PO BID 10/30/21 isosorbide mononitrate 30 mg tablet,extended release 24 hr 60 mg PO DAILY 01/07/22 metoprolol succinate 50 mg tablet,extended release 24 hr 25 mg PO DAILY 04/07/23 torsemide 20 mg tablet 20 mg PO DAILY 04/07/23 amiodarone 200 mg tablet 200 mg PO DAILY 05/20/23 allopurinol 100 mg tablet 100 mg PO DAILY 03/05/25 amlodipine 5 mg tablet 5 mg PO DAILY 03/05/25 aspirin 81 mg capsule 81 mg PO DAILY 04/02/25 acetaminophen 500 mg tablet 1,000 mg (2 x 500 mg) PO Q8 14 days #84 tabs 04/04/25 oxycodone 5 mg tablet 5 - 10 mg (1 - 2 x 5 mg) PO Q4H PRN PRN As needed for pain 7 days #42 tabs 04/04/25 sennosides 8.6 mg-docusate sodium 50 mg tablet (Stimulant Laxative Plus) 2 tab PO BID 2 days #8 tabs 04/04/25
--- NOTE | 2025-04-04 11:03 | CASEMGMT ---
Social Work Per physician pt is ready for discharge today. Janice in [facility] notified and confirms pt can come today. SW met with pt and informed that [facility] has accepted and pt will be discharged today. Pt is agreeable and states he has notified his family. Nursing updated. Disposition: Inpatient Rehab Unit [facility]
--- NOTE | 2025-04-04 11:15 | PN_ITS ---
Subjective Subjective Patient seen and examined with his nurse by his bedside.. He had no complaints. Pain is well-controlled. Review of systems otherwise negative. He is now opted to go to a rehab facility and is awaiting placement. Objective Data Objective Data Vital Signs: Vital Signs Temp Pulse Resp BP Pulse Ox O2 Del Method O2 Flow Rate 98.7 F 72 16 145/75 H 94 Room Air 2 04/04/25 09:00 04/04/25 09:00 04/04/25 09:00 04/04/25 09:00 04/04/25 09:00 04/04/25 09:00 04/04/25 07:47 Oxygen Flow Rate (L/min) 2 Oxygen Delivery Method Room Air Weight: 305 lb 12.498 oz Body Mass Index (BMI) 39.2 Intake & Output: Intake and Output for Last 24 Hours 04/02/25 04/03/25 04/04/25 23:59 23:59 23:59 Intake Total 3392 / 3592 450 / 450 Output Total 150 / 150 Balance 3242 / 3442 450 / 450 Lab / Micro Data 04/03/25 06:31 04/03/25 06:31 Micro: Microbiology 03/06/25 08:31 Swab (Method) Nasal Screen MRSA/MSSA - Final Physical Exam Const alert, oriented x3 and no apparent distress General Appearance: cooperative HEENT normocephalic, head/scalp atraumatic, moist oral mucous membranes and oropharynx normal Neck supple and no JVD Lymph Lymphatic: no lymphedema noted Resp normal respiratory effort, normal air movement and clear to auscultation bilaterally Resp Narrative: on room air Cardio regular rate, regular rhythm, S1 normal heart sound, S2 normal heart sound and no murmurs GI normal to inspection, nondistended, normoactive bowel sounds, soft to palpation and non-tender Extremity Extremity Narrative: intact dressing over left knee Skin Skin Narrative: as under extremities Neuro no sensory deficits noted Neuro Narrative: weakness in LLE due to left total knee replacement Motor Exam: general weakness Psych thought process normal and cooperative Appearance: appropriate Assessment & Plan Assessment/Plan (1) History of cardiac catheterization: (2) History of heart artery stent: PLAN: Plan #Left knee osteoarthritis * S/p left knee minimally invasive robotic assisted total arthroplasty * Today's postop day 2. Management as per orthopedic surgery per primary service * PT OT on board. Fall precautions. * P.o. Tylenol, p.o. oxycodone and IV morphine as needed for pain * Encourage incentive spirometry use. * #CAD s/p stents * Patient states he has had about 5 heart attacks and 22 stents in total. * On aspirin and Plavix. Not on statin. Unclear why. Also on imdur * #Leukocytosis: This is likely however due to the steroids that patient received. He has no focus of infection. Will monitor. #History of atrial fibrillation: On Eliquis and metoprolol #Hypertension: On metoprolol and torsemide. Also minoxidil. DVT prophylaxis: as per primary service, back on his home dose of eliquis. Disposition: Patient stable for discharge from hospitalist standpoint. Patient however now opting to go to a rehab facility so awaiting placement. Charges/Coding Visit Charges Inpatient E&M: 38779 Subs Hosp L2
--- NOTE | 2025-04-11 23:17 | PCM.DC.SUM ---
Providers Date of Admission: 04/02/25 Date of Discharge: 04/04/25 Primary Care Physician: Dr. Finn Ferrell MD Consultations 04/02/25 06:56 Consult: Hospitalist Routine Consulting Provider: Ella Scott Reason for Consult: post op med management EMERGENT Consult: No MD Notified: Yes Date Notified: 04/02/25 Time Notified: 12:16 Method of Notification: Text Reason For Visit: ERAS, ROBOTIC ASSISTED LEFT TOTAL KNEE ARTHROPLAST Diagnosis Discharge Diagnosis (1) History of cardiac catheterization: Status: Chronic Code(s): Z98.890 - Other specified postprocedural states (2) History of heart artery stent: Status: Chronic Code(s): Z95.5 - Presence of coronary angioplasty implant and graft Medications at Discharge Home Medications minoxidil 10 mg tablet 5 mg PO BID blood pressure 10/05/19 nitroglycerin 0.4 mg sublingual tablet 0.4 mg sublingual Q5-15M PRN cp 10/05/19 clopidogrel 75 mg tablet (Plavix) 75 mg PO DAILY anticoag 09/09/21 apixaban 5 mg tablet (Eliquis) 5 mg PO BID AFIB 10/30/21 isosorbide mononitrate 30 mg tablet,extended release 24 hr 60 mg PO DAILY . 01/07/22 metoprolol succinate 50 mg tablet,extended release 24 hr 25 mg PO DAILY heart rate 04/07/23 torsemide 20 mg tablet 20 mg PO DAILY urination 04/07/23 amiodarone 200 mg tablet 200 mg PO DAILY blood pressure 05/20/23 allopurinol 100 mg tablet 100 mg PO DAILY gout 03/05/25 amlodipine 5 mg tablet 5 mg PO DAILY blood pressure 03/05/25 aspirin 81 mg capsule 81 mg PO DAILY heart health 04/02/25 acetaminophen 500 mg tablet 1,000 mg (2 x 500 mg) PO Q8 pain 14 days #84 tabs 04/04/25 oxycodone 5 mg tablet 5 - 10 mg (1 - 2 x 5 mg) PO Q4H PRN PRN pain 7 days #42 tabs 04/04/25 Hospital Course Operations total knee replacement Summary of Care Provided Hospital Course: Patient is a 69-year-old male who has had ongoing pain in his left knee for over 8 years. After failing conservative measures, the patient opted to proceed with a left robotic-assisted total knee arthroplasty. The patient underwent the above-stated procedure on April 02, 2025. Patient did receive perioperative antibiotics. Intraoperatively was uneventful. For details please see dictated operative note. The patient was placed in thigh-high teds, bilateral SCDs, remained stable in recovery. Patient was admitted to the 3rd floor at [facility]. The patient's pain was managed with the use of IV and p.o. pain medications. Patient participated in physical therapy. Patient initially was planned for outpatient physical therapy however he lives home alone and was concerned about safety. Physical therapy did recommend patient with discharge to fourth floor rehabilitation. Patient's pain was controlled on oral medications. Patient was discharged on postoperative day 2 to fourth floor rehabilitation at [facility]. Patient was given medications stated below. Patient was discharged with oxycodone and Tylenol for pain control. Patient was resumed on his Eliquis 5 mg which he takes for atrial fibrillation. This will cover him for DVT prophylaxis. Patient is uncertain if he has had previous history of a DVT. On postoperative day #2 he did not have a bowel movement yet but will continue with the stool softener. He will contact our office if he does not have bowel movement by postoperative day #3. He has been passing gas. He will continue with the MARTIN hose for 2 weeks postoperatively. Patient has had swelling in the knee but denies any calf pain today. Patient will follow up with [facility] per postop instructions for reassessment. Recommended to the patient when he is discharged from the fourth floor rehabilitation unit I highly recommend formal outpatient physical therapy to continue strengthening and range of motion. Weight / BMI Weight Weight: 138.7 kg Body Mass Index (BMI) 39.2 ABG / Lab / Microbiology Data 04/03/25 06:31 04/03/25 06:31 Microbiology: Microbiology 03/06/25 08:31 Swab (Method) Nasal Screen MRSA/MSSA - Final D/C Instructions May shower in (days): 1 (Please turn dressing away from water. Okay to get wet as long as dressing is intact to skin.) Ice area for (Minutes): 20 (Every 1-2 hours while awake[address] Please place barrier between the skin and ice pack.) Weight Bearing Status: Weight bearing as tolerated (With walker) Keep extremity elevated above heart level: Operative Extremity Call your doctor if your incision/area has: Continuous Slow Oozing, Sudden Increased Bleeding, Increased Pain/ Swelling, Increased Redness and Foul Smelling Discharge Call your doctor if you observe: Fever of 101 or Higher, Coldness, Increased Pain, Numbness or Tingling, Change in Color, Shortness of breath, Chest pain, Calf discomfort and Uncontrolled pain Additional Dressing/Incision Instructions: Follow [facility] Post-op Instructions. Once postoperative dressing has been removed only use gentle soap and water over the incision. Do not use any ointments, Neosporin, salves, alcohol pads over the incision for 6 weeks postoperatively. Do not submerge underwater for 6 weeks postoperatively. Continue with MARTIN hose/elastic stockings for 2 weeks postoperatively. May remove at nighttime but needs to be placed back on the leg during the day. Do NOT use alcohol with narcotic pain medication. Do NOT make important decisions while taking narcotic medication. If you have problems with taking your medication (rash, itching, nausea, etc.) call the office at once. DC O2, CPAP, BIPAP Needs Home O2 Discharge instructions: No Meaningful Use Info Meaningful Use Meaningful Use Diagnoses (Choose all that apply): None applicable Discharge Plan Admission Admit Date/Time: 04/02/25 06:56 Attending Provider: Terry Figueroa Primary Care Provider: Finn Ferrell Consulting Providers: Ella Scott Discharge Orders/Prescriptions Prescriptions: New acetaminophen 500 mg Tablet 1,000 mg PO Q8 14 Days Qty: 84 0RF Rx Instructions: Do not take more than 3000 mg Tylenol in a 24-hour period. oxycodone 5 mg Tablet 5 - 10 mg PO Q4H PRN PRN (Reason: pain) 7 Days Qty: 42 0RF Continued nitroglycerin 0.4 mg tablet, sublingual 0.4 mg SUBLINGUAL Q5-15M PRN (Reason: cp) Rx Instructions: do not exceed 3 doses per episode minoxidil 10 mg tablet 5 mg PO BID Patient Comments: TAKE ONE-HALF TABLET BY MOUTH TWICE DAILY Eliquis 5 mg tablet 5 mg PO BID metoprolol succinate 50 mg tablet extended release 24 hr 25 mg PO DAILY torsemide 20 mg tablet 20 mg PO DAILY clopidogrel [Plavix] 75 mg Tablet 75 mg PO DAILY isosorbide mononitrate 30 mg Tablet Extended Release 24 Hr 60 mg PO DAILY amiodarone 200 mg tablet 200 mg PO DAILY Patient Comments: TAKE ONE TABLET BY MOUTH DAILY amlodipine 5 mg tablet 5 mg PO DAILY allopurinol 100 mg tablet 100 mg PO DAILY aspirin 81 mg capsule 81 mg PO DAILY Referrals / Follow Up: Finn Ferrell MD [Primary Care Provider, [facility]] Kenan Crane PA-C [Med Staff - [facility], Orthopedics] - 04/16/25 9:30 am Disposition Disposition (needs filled in before D/C Order can be placed): Inpatient Rehab Unit/Facility
== END 2025-04-04 12:46 ==
LOC: SDC 11:19 → MS3 11:19
PROVIDERS: Admitting Provider Specialist; PCP Family Medicine; Referring Provider Specialist; Visit Provider Specialist
PROC: 0SRD0JZ Replacement of Left Knee Joint with Synthetic Substitute, Open Approach (ICD-10-PCS; CPT 27447; principal; 2025-04-02 08:15)
DX: M17.12 Unilateral primary osteoarthritis, left knee (principal); I13.0 Hypertensive heart and chronic kidney disease with heart failure and stage 1 through stage 4 chronic kidney disease, or unspecified chronic kidney disease; I50.9 Heart failure, unspecified; J44.9 Chronic obstructive pulmonary disease, unspecified; I48.91 Unspecified atrial fibrillation; N18.30 Chronic kidney disease, stage 3 unspecified; Z79.01 Long term (current) use of anticoagulants; Z95.5 Presence of coronary angioplasty implant and graft; E78.00 Pure hypercholesterolemia, unspecified; Z79.899 Other long term (current) drug therapy; I25.10 Atherosclerotic heart disease of native coronary artery without angina pectoris; E55.9 Vitamin D deficiency, unspecified; Z86.718 Personal history of other venous thrombosis and embolism; I25.2 Old myocardial infarction; Z79.02 Long term (current) use of antithrombotics/antiplatelets; E66.9 Obesity, unspecified; Z68.39 Body mass index [BMI] 39.0-39.9, adult
CPT/HCPCS: 27447; S2900; 01402; 36415; 73560; 80048; 82962; 85027; 87081; 94668; 94762; 96361; 96365; 96366; 96375; 96376; 97110; 97116; 97162; 97166; 97530; 97535; 97802; 99221; 99252; C1776; A4216; G0378; G0463; J2405; J3475

== ENCOUNTER 2025-04-04 13:23 | Inpatient (IN) | payer MEDICARE, OTHER, SELFPAY ==
[2025-04-04 14:03] VITALS: BP 147/75; PULSE 86; RESP 16; TEMP 36.9; BMI 39.6
[2025-04-04 17:34] VITALS: BP 138/62; PULSE 79; RESP 18; TEMP 37.6; O2SAT 96
[2025-04-04 21:00] VITALS: PULSE 79; RESP 18; O2SAT 96
[2025-04-04] MEDS: 0.9% Saline Lock 10 ML Syringe IV (21:39)
[2025-04-04] MEDS: APIXABAN 5 MG TABLET PO (21:40)
[2025-04-04] MEDS: Senna/Docusate Sodium 1 Tablet 2 TABLET PO (21:42)
[2025-04-05 05:52] VITALS: BP 142/71; PULSE 77; RESP 16; TEMP 37; O2SAT 94
[2025-04-05 06:41] LABS: Hematocrit 33.7 % (40-54); Hemoglobin 11.0 g/dL (13.0-16.5); Immature Granulocytes Count 0.140 X10^3/uL (0.0-0.0); Mean Corp Hgb Conc 32.6 g/dL (32-36); Mean Corpuscular Volume 94.4 fL (80-94); Mean Platelet Vol. 9.5 fl (6.2-12.0); NRBC Flagged by Analyzer 0 % (0-5); Platelet Count 237 K/mm3 (150-450); RBC Distribution Width CV 13.7 % (11.6-14.6); RBC Distribution Width SD 47.8 fl (35.1-43.9); Red Blood Count 3.57 M/mm3 (4.6-6.2); White Blood Count 12.4 K/mm3 (4.4-11.0)
[2025-04-05 07:02] LABS: AST(SGOT) 45 U/L (<=37); Alanine Aminotransfer ALT/SGPT 68 U/L (<=46); Albumin, Serum 3.7 g/dL (3.4-4.8); Alkaline Phosphatase 87 U/L (40-129); Anion Gap 9 (5-15); BUN 32 mg/dL (4-19); BUN/Creat Ratio 20.1 RATIO (10-20); Calcium,Total 9.0 mg/dL (7.6-11.0); Carbon Dioxide 23.0 mmol/L (21.0-32.0); Chloride 103 mmol/L (98-108); Estimated Creatinine Clearance 66.20 ml/min (50-250); Globulin 3.0 g/dL (2.2-4.2); Glucose 153 mg/dL (70-99); Magnesium 2.6 mg/dL (1.5-2.2); Potassium 4.8 mmol/L (3.3-5.1)
--- NOTE | 2025-04-05 08:20 | PCM.HP.STD ---
Documented by User: KYLIE Amador 04/05/25 10:37 HPI - General General Date of Admission: 04/04/25 Date of Service: 04/04/25 Chief Complaint: debility follow total knee replacement HPI Narrative SHANNON OLSON, is a 69 M who presented to [facility] on 04/02/25 for a left total knee arthroplasty with Dr. Tenorio. He has been having L knee pain for 8 years. He had the Right total knee done in 2019. Shannon has hx of arthritis, RA, hypertension, HLD, A-fib on anticoagulation which was held for 5 days prior to surgery, sleep apnea has tried CPAP but he was not able to tolerate it related to claustrophobia, CAD with 22 stents placed, COPD, GERD, asthma, TIA, hypokalemia, CHF, stroke,DVT, anemia, CKD III, gout, chronic edema, esophageal dysphagia, Vit D deficiency and depression with anxiety but is not on any antidepressants or antianxiety medications. He is trying to lose some weight and is hoping to obtain an Inspire for sleep apnea. He was discharged to inpatient rehab on 04/04/25 for continued PT/OT services following surgical intervention. On arrival to the floor he does have complaints of some left knee pain after working with PT. he does have some swelling to the left knee. Ice is applied. MARTIN hose are in place. Pain medications given. Patient states that he does have a high pain tolerance. He is hoping to wean off opioids as soon as possible but understands it is necessary, at this point in time. We have scheduled his Tylenol 1000 mg p.o. every 8 hours to assist with more adequate pain control. We did discuss best strategies for weaning off of opioids. Patient states understanding. His Eliquis, Plavix and aspirin have been resumed. Patient states last bowel movement was 6 days ago. Aggressive bowel regiment has been ordered. He did state that he has had a decreased appetite but understands the importance of nutrition including. Heart healthy diet has been ordered. He denies shortness of breath or chest pain. He is not experiencing any calf pain. He denies nausea vomiting. Vital signs are stable. Afebrile. Discussed with nursing: No acute concerns although patient did have a very low-grade temperature yesterday at 99.6. Patient is afebrile today at 98.6. PT/OT: Continue with therapies. Diet: Heart healthy diet. [facility] Medical History Gout DVT (deep venous thrombosis) History of hiatal hernia Left rotator cuff tear History of echocardiogram Anxiety Excessive bleeding PONV (postoperative nausea and vomiting) Sleep apnea History of stress test Wears glasses Depression High cholesterol Gastric reflux Difficulty swallowing Non-smoker COPD (chronic obstructive pulmonary disease) Shortness of breath on exertion Leg cramps History of edema Hypertension Cardiology follow-up encounter History of heart attack History of atrial fibrillation Chest pain Sensorineural hearing loss, bilateral Dysphagia Epidermal inclusion cyst NSVT (nonsustained ventricular tachycardia) Screening for malignant neoplasm of intestine Cholelithiasis with chronic cholecystitis COPD (chronic obstructive pulmonary disease) CAD (coronary artery disease) Atrial fibrillation severe degenerative arthritis of right hip Rheumatoid arthritis Obstructive sleep apnea syndrome history of ischemic stroke HTN (hypertension) Hyperlipidemia Esophageal reflux Coronary atherosclerosis of [place] coronary vessel Home Medications ?Medication ?Instructions ?Recorded ?Last Taken ?Type minoxidil 10 mg tablet 5 mg PO BID blood pressure 10/05/19 04/01/25 History nitroglycerin 0.4 mg sublingual 0.4 mg sublingual Q5-15M PRN cp 10/05/19 Unknown History tablet clopidogrel 75 mg tablet (Plavix) 75 mg PO DAILY anticoag 09/09/21 04/04/25 History apixaban 5 mg tablet (Eliquis) 5 mg PO BID AFIB 10/30/21 04/04/25 History isosorbide mononitrate 30 mg 60 mg PO DAILY . 01/07/22 05/20/23 History tablet,extended release 24 hr metoprolol succinate 50 mg 25 mg PO DAILY heart rate 04/07/23 04/02/25 04:00 History tablet,extended release 24 hr torsemide 20 mg tablet 20 mg PO DAILY urination 04/07/23 04/01/25 History amiodarone 200 mg tablet 200 mg PO DAILY blood pressure 05/20/23 04/02/25 04:00 History allopurinol 100 mg tablet 100 mg PO DAILY gout 03/05/25 04/01/25 History amlodipine 5 mg tablet 5 mg PO DAILY blood pressure 03/05/25 04/02/25 04:00 History aspirin 81 mg capsule 81 mg PO DAILY heart health 04/02/25 04/01/25 History acetaminophen 500 mg tablet 1,000 mg (2 x 500 mg) PO Q8 pain 04/04/25 04/04/25 Rx 14 days #84 tabs oxycodone 5 mg tablet 5 - 10 mg (1 - 2 x 5 mg) PO Q4H 04/04/25 04/04/25 10:00 Rx PRN PRN pain 7 days #42 tabs Allergy/AdvReac Type Severity Reaction Status Date / Time Penicillins Allergy Hives Verified 04/02/25 06:58 Family History Sister Cancer ovarian Diabetes Brother Diabetes Mother Heart disease Hypertension Father Prostate cancer Surgical History History of right shoulder replacement History of hernia repair History of bilateral cataract extraction History of thrombectomy History of repair of rotator cuff History of carpal tunnel release of both wrists History of arthroscopic knee surgery S/P PTCA (percutaneous transluminal coronary angioplasty) Hx of cholecystectomy History of colonoscopy (~2014) History of esophagogastroduodenoscopy (EGD) (~2014) History of knee joint replacement History of total right hip arthroplasty History of inguinal hernia repair History of left shoulder replacement History of total left hip arthroplasty History of coronary angioplasty History of heart artery stent History of cardiac catheterization Social History household members: none Smoking Status: Never smoker alcohol intake: never substance use type: does not use ROS Constitutional Constitutional: Reports snoring and other Details: Patient is unable to tolerate CPAP. Eyes Eyes: Reports systems reviewed and no addt'l complaints, except as documented and other Details: Wears corrective lenses ENT HEENT: Reports systems reviewed and no addt'l complaints, except as documented Cardiovascular Cardiovascular: Reports as per HPI Respiratory/Chest Respiratory/Chest: Reports as per HPI Gastrointestinal Gastrointestinal: Reports constipation Genitourinary Genitourinary: Reports systems reviewed and no addt'l complaints, except as documented Musculoskeletal Musculoskeletal: Reports extremity pain, joint pain, joint stiffness, joint swelling and muscle weakness Integumentary Integumentary: Reports other Details: Surgical wound to left knee. Dressing in place is clean dry and intact. Neurologic Neurologic: Reports systems reviewed and no addt'l complaints, except as documented Psychiatric Psychiatric: Reports depression and other Details: History of depression but is not feeling depressed at this time Endocrine Endocrinology: Reports systems reviewed and no addt'l complaints, except as documented Hematologic/Lymphatic Hematologic/Lymphatic: Reports anemia Allergic/Immunologic Allergic/Immunologic: Reports as per HPI Vital Signs Vital Signs Vital Signs: 04/04/25 14:03 04/04/25 14:33 04/04/25 17:34 Temperature 98.5 F 99.6 F H Temperature Source Temporal Temporal Pulse Rate 86 79 Respiratory Rate 16 18 Respiratory Effort Normal Non-Labored Respiratory Depth Normal Respiratory Pattern Normal Blood Pressure 147/75 H 138/62 H Blood Pressure Mean 99 87 Blood Pressure Source Monitor Monitor Blood Pressure Position Sitting Sitting Blood Pressure Location Left Arm Left Arm Pulse Ox 96 Oxygen Delivery Method Room Air Room Air Room Air 04/04/25 21:00 04/05/25 05:52 Temperature 98.6 F Temperature Source Temporal Pulse Rate 79 77 Respiratory Rate 18 16 Respiratory Effort Normal Non-Labored Respiratory Depth Normal Respiratory Pattern Normal Blood Pressure 142/71 H Blood Pressure Mean 94 Blood Pressure Source Monitor Blood Pressure Position Sitting Blood Pressure Location Left Arm Pulse Ox 96 94 Oxygen Delivery Method Room Air Room Air Weight Weight: 309 lb 1.409 oz Body Mass Index (BMI) 39.6 Physical Exam Const alert, oriented x3, no apparent distress and healthy appearing General Appearance: cooperative Orientation / Consciousness: awake, oriented to person, oriented to place and oriented to time Exam Limitations: physical limitations Nutritional Appearance: overweight HEENT normocephalic Mouth: oral and palatal mucosa normal Eyes PERRL Eyes Narrative: Wears bifocals Sclera: sclera normal Neck full ROM Resp normal respiratory effort, normal air movement, no use of accessory muscles and clear to auscultation bilaterally Cardio regular rate, regular rhythm, S1 normal heart sound, S2 normal heart sound, no murmurs and no gallops Rate: regular rate Rhythm: other Other Details: Currently not in atrial fibrillation via auscultation and palpation Peripheral Pulses: pulses 2+ throughout GI soft to palpation and non-tender GI Narrative: Constipation x 6 days Auscultation: normoactive bowel sounds no CVA tenderness Back/Spine no CVA tenderness Extremity Extremity Narrative: Slight pedal edema to the left lower extremity from the knee down. Surgical incision to the left knee in which the dressing is clean dry intact. MARTIN hose in place. Skin no rashes or lesions noted and skin turgor normal Skin Narrative: Surgical incision left knee Neuro Sensorium / Orientation: awake, alert, oriented to person, oriented to place and oriented to time Psych mental status grossly normal Results Lab / Micro Data 04/05/25 06:25 04/05/25 06:25 Labs: Laboratory Results - last 24 hr 04/05/25 06:25: WBC 12.4 H, RBC 3.57 L, Hgb 11.0 L, Hct 33.7 L, MCV 94.4 H, MCH 30.8, MCHC 32.6, RDW Std Deviation 47.8 H, RDW Coeff of Santh[place] 13.7, Plt Count 237, MPV 9.5, Immature Gran % (Auto) 1.100 H, Neut % (Auto) 79.1 H, Lymph % (Auto) 8.5 L, [place] % (Auto) 10.6 H, Eos % (Auto) 0.2, Baso % (Auto) 0.5, Absolute Neuts (auto) 9.8 H, Absolute Lymphs (auto) 1.06, Nucleated RBC % 0, Sodium 135, Potassium 4.8, Chloride 103, Carbon Dioxide 23.0, Anion Gap 9, BUN 32 H, Creatinine 1.57 H, Estim Creat Clear Calc 66.20, Est GFR (MDRD) Non-Af 47 L, BUN/Creatinine Ratio 20.1 H, Glucose 153 H, Calcium 9.0, Phosphorus 3.1, Magnesium 2.6 H, Total Bilirubin 1.28, AST 45 H, ALT 68 H, Alkaline Phosphatase 87, Total Protein 6.7, Albumin 3.7, Globulin 3.0, Albumin/Globulin Ratio 1.2 Assessment & Plan Assessment/Plan (1) Status post total left knee replacement: PLAN: *continue therapies PT/OT *Total knee precautions (2) Constipation: PLAN: * SenaKot: 2 tabs PO bid. *Miralax 17g PO PRN constipatin *MoM with prunce juice and OJ for constipation (3) HTN (hypertension): PLAN: *Norvasc 5 mg p.o. daily *Imdur 60 mg p.o. daily *Vital signs every shift *Heart healthy diet (4) Atrial fibrillation: QUALIFIERS: Atrial fibrillation type: paroxysmal Qualified Code(s): I48.0 - Paroxysmal atrial fibrillation PLAN: *Amiodarone 200 mg p.o. daily *Metoprolol succinate 25 mg p.o. daily PLAN: Plan * Status post total left knee replacement: * Continue Pain Medications: scheduled Tylenol 1000mg PO q 8 hours with Oxycodone 5-10mg PO q 4 hours for moderate to severe pain -03/02. We discussed the importance of appropriate pain management and staying on top of his pain and the importance of weaning off of opioids once pain is controlled. He is unable to use NSAID due to anticoagulation, CKD and cardiac history. * DVT Prophylaxis/A-Fib: Patient has resumed his Eliquis 5 mg twice daily, Plavix 75mg PO daily and Aspirin 81mg PO daily for A-fib. This will cover him for DVT prophylaxis * Continue with the MARTIN hose for 2 weeks postoperatively. He can take those off at nighttime and showering but during the day. * PT/OT: Weightbearing as tolerated with walker * Per surgery: Okay to remove the dressings on April 07, 2025. He is allowed to shower with this dressing. Do not submerge underwater for 6 weeks postoperatively. Once the dressing has been removed only use soap and water over the incision for 6 weeks postoperatively. No topical ointments on the incision for 6 weeks. * Encouraged Incentive Spirometry *Continue patient's home Lasix of 40 mg p.o. daily Charges/Coding Visit Charges Inpatient E&M: 86198 Init Hosp L2 Documented by User: Dr. Silva Daigle DO 04/05/25 16:20 HPI - General General Date of Admission: 04/04/25 [facility] Medical History Gout DVT (deep venous thrombosis) History of hiatal hernia Left rotator cuff tear History of echocardiogram Anxiety Excessive bleeding PONV (postoperative nausea and vomiting) Sleep apnea History of stress test Wears glasses Depression High cholesterol Gastric reflux Difficulty swallowing Non-smoker COPD (chronic obstructive pulmonary disease) Shortness of breath on exertion Leg cramps History of edema Hypertension Cardiology follow-up encounter History of heart attack History of atrial fibrillation Chest pain Sensorineural hearing loss, bilateral Dysphagia Epidermal inclusion cyst NSVT (nonsustained ventricular tachycardia) Screening for malignant neoplasm of intestine Cholelithiasis with chronic cholecystitis COPD (chronic obstructive pulmonary disease) CAD (coronary artery disease) Atrial fibrillation severe degenerative arthritis of right hip Rheumatoid arthritis Obstructive sleep apnea syndrome history of ischemic stroke HTN (hypertension) Hyperlipidemia Esophageal reflux Coronary atherosclerosis of [place] coronary vessel Home Medications ?Medication ?Instructions ?Recorded ?Last Taken ?Type minoxidil 10 mg tablet 5 mg PO BID blood pressure 10/05/19 04/01/25 History nitroglycerin 0.4 mg sublingual 0.4 mg sublingual Q5-15M PRN cp 10/05/19 Unknown History tablet clopidogrel 75 mg tablet (Plavix) 75 mg PO DAILY anticoag 09/09/21 04/04/25 History apixaban 5 mg tablet (Eliquis) 5 mg PO BID AFIB 10/30/21 04/04/25 History isosorbide mononitrate 30 mg 60 mg PO DAILY . 01/07/22 05/20/23 History tablet,extended release 24 hr metoprolol succinate 50 mg 25 mg PO DAILY heart rate 04/07/23 04/02/25 04:00 History tablet,extended release 24 hr torsemide 20 mg tablet 20 mg PO DAILY urination 04/07/23 04/01/25 History amiodarone 200 mg tablet 200 mg PO DAILY blood pressure 05/20/23 04/02/25 04:00 History allopurinol 100 mg tablet 100 mg PO DAILY gout 03/05/25 04/01/25 History amlodipine 5 mg tablet 5 mg PO DAILY blood pressure 03/05/25 04/02/25 04:00 History aspirin 81 mg capsule 81 mg PO DAILY heart health 04/02/25 04/01/25 History acetaminophen 500 mg tablet 1,000 mg (2 x 500 mg) PO Q8 pain 04/04/25 04/04/25 Rx 14 days #84 tabs oxycodone 5 mg tablet 5 - 10 mg (1 - 2 x 5 mg) PO Q4H 04/04/25 04/04/25 10:00 Rx PRN PRN pain 7 days #42 tabs Allergy/AdvReac Type Severity Reaction Status Date / Time Penicillins Allergy Hives Verified 04/02/25 06:58 Family History Sister Cancer ovarian Diabetes Brother Diabetes Mother Heart disease Hypertension Father Prostate cancer Surgical History History of right shoulder replacement History of hernia repair History of bilateral cataract extraction History of thrombectomy History of repair of rotator cuff History of carpal tunnel release of both wrists History of arthroscopic knee surgery S/P PTCA (percutaneous transluminal coronary angioplasty) Hx of cholecystectomy History of colonoscopy (~2014) History of esophagogastroduodenoscopy (EGD) (~2014) History of knee joint replacement History of total right hip arthroplasty History of inguinal hernia repair History of left shoulder replacement History of total left hip arthroplasty History of coronary angioplasty History of heart artery stent History of cardiac catheterization Social History household members: none Smoking Status: Never smoker alcohol intake: never substance use type: does not use Results Lab / Micro Data 04/05/25 06:25 04/05/25 06:25 Assessment & Plan Assessment/Plan (1) Status post total left knee replacement: (2) Constipation: (3) HTN (hypertension): (4) Atrial fibrillation: QUALIFIERS: Atrial fibrillation type: paroxysmal Qualified Code(s): I48.0 - Paroxysmal atrial fibrillation PLAN: Plan * Status post total left knee replacement: * Continue Pain Medications: scheduled Tylenol 1000mg PO q 8 hours with Oxycodone 5-10mg PO q 4 hours for moderate to severe pain 6-10/10. We discussed the importance of appropriate pain management and staying on top of his pain and the importance of weaning off of opioids once pain is controlled. He is unable to use NSAID due to anticoagulation, CKD and cardiac history. * DVT Prophylaxis/A-Fib: Patient has resumed his Eliquis 5 mg twice daily, Plavix 75mg PO daily and Aspirin 81mg PO daily for A-fib. This will cover him for DVT prophylaxis * Continue with the MARTIN hose for 2 weeks postoperatively. He can take those off at nighttime and showering but during the day. * PT/OT: Weightbearing as tolerated with walker * Per surgery: Okay to remove the dressings on April 07, 2025. He is allowed to shower with this dressing. Do not submerge underwater for 6 weeks postoperatively. Once the dressing has been removed only use soap and water over the incision for 6 weeks postoperatively. No topical ointments on the incision for 6 weeks. * Encouraged Incentive Spirometry *Continue patient's home Lasix of 40 mg p.o. daily I personally supervised the nurse practitioner in the evaluation and development of a treatment plan for this patient on the same day of service. I personally discussed the review of systems and interviewed the patient along with performing a physical examination. I discussed the patient's condition and treatment options with patient. All questions were answered. My findings agree with the nurse practitioners note except for any details corrected below. Not sleeping well at night....slept in the recliner last night......he is not comfortable in the bed. He feels the ice when applied continuously makes things worse. Today he is icing his knee after therapy and he feels it is helping. He is in the recliner but his legs are not adequately elevated and he tells me if he elevates them any further it increases his pain. He does have some swelling in the left ankle. I agree with the remainder physical as documented by the nurse practitioner. She placed him on scheduled Tylenol 1 g p.o. every 8 hours. I find that on rehab if they do not have adequate pain relief they are not as effective in doing physical therapy. I discussed with the patient and he is agreeable to taking 5 mg of oxycodone with breakfast and 10 mg at at bedtime. I also wrote for trazodone 50 mg at at bedtime as needed insomnia not controlled with pain management. Will continue as needed oxycodone.
[2025-04-05] MEDS: Senna/Docusate Sodium 1 Tablet 2 TABLET PO ×2 (09:12→21:16)
[2025-04-05 09:13] VITALS: BP 142/71; PULSE 77
[2025-04-05] MEDS: Metoprolol(XL)Succ 25 MG Tablet PO (09:13)
[2025-04-05] MEDS: APIXABAN 5 MG TABLET PO ×2 (09:14→21:17)
--- NOTE | 2025-04-05 10:37 | REHABEVAL_ITS ---
Admission Information Primary Diagnosis:: Left total knee replacement Actual Problem List:: Skin Intergrity, Pain, ALteration in Cmfrt, Bowel, Constipation, Alteration in Sleep, Mobility Impaired, Know.Dfct/Disease Process, Know.Dfct of Medicaitons, BP, Hypertension and Alteration-Leisure Activ. Potential Problem List:: DVT, Bleeding, Infection, Aspiration, Falls, Skin Integrity and Depression Risk of Complications DVT: MARTIN Hose Bleeding: Monitor Lab Values Infection: Clinical Staff to Monitor for S/S of infection: and S/S of infection include fever, redness, warmth, etc. Urinary Tract Infection: Monitor for frequency, burning, discomfort, or incontinence. and Nursing will obtain urine sample for urinalysis and C&S when ordered. Aspiration: Clinical staff will monitor for coughing, drooling, congestion. and Nursing will monitor patient swallowing during meals. Falls: Patient will be evaluated for Fall Precautions and Patient will be placed on Fall Precautions as indicated per protocol. Skin Breakdown: Nursing will assess skin daily using assessment tool. and Nursing will place on Skin Breakdown Precautions as indicated. Pain: Clinical staff will assess patient's pain level per protocol., Medications will be given, if needed, and the pain level reassessed. and Other methods: Massage, distraction, decrease stimulus, etc. used PRN. Plan of Care Patient requires physician specializing in physical medicine and rehab oversight to provide close medical supervision of rehab issues including: Pain Management, Sleep Problems, Bowel and Bladder, Medical and co-morbidity Management, DVT prophylaxis, Rehabilitation Leadership and Coordination of treatment team Patient needs Physical Therapy: For a minimum of 1 hour and At least 5 out of 7 days Patient needs Physical Therapy to improve:: Mobility, Strengthening, Transfers, Stretching, ROM, Endurance, Stairs, Gait and Balance Patient needs Occupational Therapy: For a minimum of 1 hour and At least 5 out of 7 days Patient needs Occupational Therapy to improve ADL's incl.: Eating, Grooming, Bathing, Dressing, Toileting, Toilet transfers, Community Reintegration, Higher functioning activities, Household tasks, Adaptive Equipment, Splinting and Other activities as determined Patient requires speech therapy: For a minimum of 1 hour and At least 5 out of 7 days Patient requires speech therapy for: Swallowing, Cognition, Language Skills and Compensatory Strategies Patient requires 24/7 Rehabilitation Nursing for: Pain Issues, Identifying and preventing risk factors, Monitoring and reporting current medical conditions, Assisting with ambulation, transfer, and all ADL's, Teaching patients about disease process and medications, Family teaching, Providing safe environment, Bowel and Bladder Issues, Skin integrity and Medication Management Patient needs Linen Room Houseperson/ Case Management for: Discharge Planning, Arranging Home Equipment or Services and Family Interventions Patient needs Dietary and Nutrition Services for: Adequate Nutrition, N utritional Supplements and Nutritional Education Goals Goals Patient will remain: free from falls and or injury at time of discharge. Patient will perform bed mobility at: MOD I level of assist. Patient will complete transfers from bed to chair at: MOD I level of assist. Patient will ambulate: 100 feet and with LRD Patient will complete upper body dressing at: MOD I level of assist. Patient will complete lower body dressing at: MOD I level of assist. Patient will complete toileting at: MOD I level of assist. Patient will perform bathing at: MOD I level of assist. Patient will complete grooming at: MOD I level of assist. Patient will complete home management skills at: MOD I level of assist. Patient will achieve: - (1 curb step) Patient will have pain level of: of 3 or less Patient's skin will: remain intact Patient will receive: adequate nutrition. Discharge Planning Pt Prognosis for Sig. Practical Improv. w/in Reasonable Time: Good Estimated Length of stay (days): 10 Anticipated D/C Destination: Home Was Preadmission Assessment Accurate?: Yes
--- NOTE | 2025-04-05 15:16 | CASEMGMT ---
Social Work- SW met with pt to complete initial assessment. SW introduced self and role; pt agreeable to meet. SW verified contacts. Educated to Medicare benefit and co-pay coverage. Discussed team meeting date of Wednesday. Pt completed BIMS () and PHQ9 (0). Pt reports no needs at this time, reports that everyone is great. Pt plans for discharge home with outpatient therapy through [facility]. SW remains available to follow. RIGO Barrios
[2025-04-05 17:12] VITALS: BP 116/60; PULSE 79; RESP 16; TEMP 37.1; O2SAT 92
[2025-04-05 20:45] VITALS: PULSE 79; RESP 16; O2SAT 94
[2025-04-05] MEDS: 0.9% Saline Lock 10 ML Syringe IV (21:24)
[2025-04-06 06:00] VITALS: BP 150/70; PULSE 75; RESP 16; TEMP 37.2; O2SAT 98
[2025-04-06 08:29] VITALS: PULSE 75
[2025-04-06] MEDS: Metoprolol(XL)Succ 25 MG Tablet PO (08:29)
[2025-04-06] MEDS: Senna/Docusate Sodium 1 Tablet 2 TABLET PO ×2 (08:29→21:06)
[2025-04-06] MEDS: APIXABAN 5 MG TABLET PO ×2 (08:29→21:04)
[2025-04-06] MEDS: 0.9% Saline Lock 10 ML Syringe IV (13:27)
[2025-04-06] MEDS: Magnesium Citrate 300 ML PO (15:15)
--- NOTE | 2025-04-06 15:34 | CHAPLAIN ---
Type of Pastoral Visit _x__ Initial Visit ___ Follow-up Visit ___ On-call Visit ___ General Patient Visit ___ Spiritual Assessment ___ Family Conference ___ Bereavement ___ Rapid Response ___ Code Blue ___ Other (describe below) Pastoral Care Referral From _x__ Patient _x__ Family ___ Nurse ___ Physician ___ Insurance Follow Up Specialist ___ Delivery Person ___ Other (describe below) Sacrament/Intervention _x__ Active listening ___ Anointing ___ Amish ___ Bereavement ___ Communion _x__ Sharmin exploration ___ _x__ Life review _x__ Prayer ___ Reconciliation ___ Sacrament of Sick ___ Supportive presence ___ Wedding ___ Other (describe below) Pastoral Comments patient has had lots of experience in ortho surgeries but since he lives alone it was a good option for him to stay in Rehab; pt is hopeful about this surgery and its outcome; pt has a good community support of family and mosque; pt speaks of his work life and family life; patient acknowledges that it gets lonely in the room so having someone to talk with is helpful; prayer is welcomed
[2025-04-06 17:31] VITALS: BP 120/63; PULSE 70; RESP 17; TEMP 36.7; O2SAT 92
[2025-04-06 21:15] VITALS: BP 134/60; PULSE 75
[2025-04-07 05:57] VITALS: BP 136/66; PULSE 76; RESP 16; TEMP 37; O2SAT 96
[2025-04-07 08:28] VITALS: O2SAT 95
[2025-04-07] MEDS: APIXABAN 5 MG TABLET PO ×2 (08:59→21:54)
[2025-04-07] MEDS: Senna/Docusate Sodium 1 Tablet 2 TABLET PO ×2 (09:00→21:56)
[2025-04-07 09:02] VITALS: PULSE 76
[2025-04-07] MEDS: Metoprolol(XL)Succ 25 MG Tablet PO (09:02)
[2025-04-07 12:22] LABS: Hematocrit 30.2 % (40-54); Hemoglobin 9.6 g/dL (13.0-16.5); Immature Granulocytes Count 0.140 X10^3/uL (0.0-0.0); Mean Corp Hgb Conc 31.8 g/dL (32-36); Mean Corpuscular Volume 94.1 fL (80-94); Mean Platelet Vol. 9.1 fl (6.2-12.0); NRBC Flagged by Analyzer 0 % (0-5); Platelet Count 279 K/mm3 (150-450); RBC Distribution Width CV 13.3 % (11.6-14.6); RBC Distribution Width SD 46.1 fl (35.1-43.9); Red Blood Count 3.21 M/mm3 (4.6-6.2); White Blood Count 9.7 K/mm3 (4.4-11.0)
[2025-04-07 13:26] LABS: CRP 108.00 mg/L (0.0-3.0)
[2025-04-07 18:00] VITALS: BP 128/55; PULSE 70; RESP 18; TEMP 37; O2SAT 96
[2025-04-07] MEDS: 0.9% Saline Lock 10 ML Syringe IV (22:01)
[2025-04-08 06:00] VITALS: BP 117/69; PULSE 73; RESP 18; TEMP 37.2; O2SAT 96
[2025-04-08 06:34] LABS: Anion Gap 12 (5-15); BUN 29 mg/dL (4-19); BUN/Creat Ratio 19.8 RATIO (10-20); Calcium,Total 9.3 mg/dL (7.6-11.0); Carbon Dioxide 24.5 mmol/L (21.0-32.0); Chloride 101 mmol/L (98-108); Estimated Creatinine Clearance 72.18 ml/min (50-250); Glucose 127 mg/dL (70-99); Potassium 4.2 mmol/L (3.3-5.1)
[2025-04-08] MEDS: Senna/Docusate Sodium 1 Tablet 2 TABLET PO ×2 (08:01→21:45)
[2025-04-08 08:02] VITALS: PULSE 79
[2025-04-08] MEDS: Metoprolol(XL)Succ 25 MG Tablet PO (08:02)
[2025-04-08] MEDS: APIXABAN 5 MG TABLET PO ×2 (08:05→21:45)
[2025-04-08 18:00] VITALS: BP 116/62; PULSE 71; RESP 16; TEMP 37.3; O2SAT 93
[2025-04-08] MEDS: 0.9% Saline Lock 10 ML Syringe IV (21:50)
[2025-04-08 21:51] VITALS: BP 99/68; PULSE 76; RESP 18; TEMP 37.7; O2SAT 96
[2025-04-08 21:53] VITALS: BP 120/69; PULSE 73; RESP 18; TEMP 37.7; O2SAT 96
[2025-04-08 23:45] VITALS: BP 113/69; PULSE 75; RESP 18; TEMP 37.1; TEMP 38; O2SAT 97
--- NOTE | 2025-04-09 00:19 | PCM.HOSP.N ---
Hospitalist Note Patient with low grade T/fevers, has been started on doxycycline already, will obtain bld Cx, UA/UCx additionally and will given toradol 15 mg IV x 1, already on tylenol regimen given joint replacement.
[2025-04-09] MEDS: 0.9% Saline Lock 10 ML Syringe IV ×4 (02:21→23:20)
[2025-04-09 02:41] LABS: Mucous, Urine 0 SEEN /hpf (<or=2+); Red Blood Cells-Urine 0 SEEN /hpf (0-5)
[2025-04-09 02:43] LABS: Color, Urine Yellow (Yellow); Glucose, Dipstick Normal (Normal); Ketone-Dipstick Negative (Negative); Leukocyte Esterase-Dipstick Negative /ul (Negative); Nitrite-Dipstick Negative (Negative); Occult Blood-Urine Negative /ul (Negative); Protein-Dipstick 15 mg/dl (Negative); Specific Gravity, Urine 1.015 (1.002-1.030); Urine Bilirubin Dipstick Negative (Negative)
[2025-04-09 02:51] LABS: Squamous Epithelial Cells - UA 0-5 SEEN /hpf (0-5)
--- NOTE | 2025-04-09 04:17 | NURSING ---
This nurse called hospitalist at 0015 and new orders received and put in by, Dr. Henrietta Quinonez. Patient c/o dizziness, chills, and nausea. Left knee is well approximated with renay. Incision looks great. Superior to Left knee is pink with a white line intermittent through the pink area. Left knee warm to touch. Vitals from [facility], Gisele Edwards, [address] temperature was 99.8. Dr. Quinonez ordered one time dose of Toradol, Blood Cultures times two and UA.
[2025-04-09 05:45] LABS: Hematocrit 28.5 % (40-54); Hemoglobin 9.1 g/dL (13.0-16.5); Immature Granulocytes Count 0.150 X10^3/uL (0.0-0.0); Mean Corp Hgb Conc 31.9 g/dL (32-36); Mean Corpuscular Volume 94.1 fL (80-94); Mean Platelet Vol. 9.0 fl (6.2-12.0); NRBC Flagged by Analyzer 0 % (0-5); Platelet Count 316 K/mm3 (150-450); RBC Distribution Width CV 13.6 % (11.6-14.6); RBC Distribution Width SD 46.6 fl (35.1-43.9); Red Blood Count 3.03 M/mm3 (4.6-6.2); White Blood Count 10.3 K/mm3 (4.4-11.0)
[2025-04-09 05:55] VITALS: BP 114/64; PULSE 68; RESP 17; TEMP 37.1; O2SAT 94
[2025-04-09 06:18] LABS: Procalcitonin 0.17 ng/mL (<=0.10)
[2025-04-09 08:23] VITALS: BP 119/66; PULSE 73; RESP 16; TEMP 37.6; O2SAT 92
[2025-04-09 08:36] VITALS: BP 119/66; PULSE 73
[2025-04-09] MEDS: Senna/Docusate Sodium 1 Tablet 2 TABLET PO ×2 (08:36→21:03)
[2025-04-09] MEDS: Metoprolol(XL)Succ 25 MG Tablet PO (08:36)
[2025-04-09] MEDS: APIXABAN 5 MG TABLET PO ×2 (08:36→21:03)
[2025-04-09 09:20] VITALS: TEMP 36.7
--- NOTE | 2025-04-09 10:24 | PN_ITS ---
Subjective Subjective Day #2 antibiotics. Transitioned to Rocephin and Vanco today Timo was seen on TEAM rounds today. His brother was present in the room and all questions were answered to their satisfaction. We have been holding Tylenol since Wednesday and he has had some low-grade temps. His temp last night at bedtime was 100.4. This morning he is 99.7. VSS - Maintaining appropriate oxygen saturation on RA Oral intake - FOOD very good FLUIDS good Discussed with nursing - no problems that need addressed Reviewed the THERAPY notes Medication list reviewed. All lab from this morning was personally reviewed. The white blood cell count is 10.3 with 77.6% neutrophils and 1.5% immature granulocytes. Procalcitonin is elevated at 0.17. ESR is 12 and the CRP is 108. Blood cultures were ordered by the hospitalist and were drawn this morning at 05 30. He had a UA that showed 0-5 WBCs and 1+ bacteria and a urine culture was sent. It was a clean-catch not a straight cath. There was a culture of the urine drainage ordered and it had rare gram-positive cocci. Timo tells me that he is feeling better today. Denies chills and sweats and nausea. Over the weekend he had nausea, lightheadedness, shaking chills and sweats. The pain in the L knee is better. [place] he did better with therapy today. Had his leg elevated in the recliner most of the day yesterday and the foot rest was the whole way up. Started on doxycycline yesterday. Denies dysuria, cough, SOB, CP. No shaking chills this AM. Tells me that the L knee is less warm to the touch and the redness is less. Objective Data Objective Data Vital Signs: Vital Signs Temp Pulse Resp BP Pulse Ox O2 Del Method O2 Flow Rate 98.0 F 73 16 119/66 92 Room Air 2 04/09/25 09:20 04/09/25 08:36 04/09/25 08:23 04/09/25 08:36 04/09/25 08:23 04/09/25 09:43 04/06/25 17:31 Oxygen Flow Rate (L/min) 2 Oxygen Delivery Method Room Air Weight: 309 lb 1.409 oz Body Mass Index (BMI) 39.6 Intake & Output: Intake and Output for Last 24 Hours 04/07/25 04/08/25 04/09/25 23:59 23:59 23:59 Intake Total 2500 / 2500 1600 / 1600 300 / 300 Output Total 1950 / 1950 850 / 850 600 / 600 Balance 550 / 550 750 / 750 -300 / -300 Lab / Micro Data 04/09/25 05:25 04/08/25 05:55 Labs: Laboratory Results - last 24 hr 04/09/25 02:32: Urine Color Yellow, Urine Clarity Clear, Urine pH 6.0, Ur Specific [place] 1.015, Urine Protein 15 H, Urine Glucose (UA) Normal, Urine Ketones Negative, Urine Occult Blood Negative, Urine Nitrite Negative, Urine Bilirubin Negative, Urine Urobilinogen Normal, Ur Leukocyte Esterase Negative, Urine RBC 0 SEEN, Urine WBC 0-5 SEEN, Ur Squamous Epith Cells 0-5 SEEN, Urine Bacteria 1+, Urine Mucus 0 SEEN 04/09/25 05:25: WBC 10.3, RBC 3.03 L, Hgb 9.1 L, Hct 28.5 L, MCV 94.1 H, MCH 30.0, MCHC 31.9 L, RDW Std Deviation 46.6 H, RDW Coeff of Santhosh 13.6, Plt Count 316, MPV 9.0, Immature Gran % (Auto) 1.500 H, Neut % (Auto) 77.6 H, Lymph % (Auto) 10.9 L, [place] % (Auto) 8.4, Eos % (Auto) 1.1, Baso % (Auto) 0.5, Absolute Neuts (auto) 8.0 H, Absolute Lymphs (auto) 1.13, Nucleated RBC % 0, P rocalcitonin 0.17 H Micro: Microbiology 04/07/25 12:00 Wound - Knee Gram Stain - Final 04/07/25 12:00 Wound - Leg, Left Gram Stain - Final 04/06/25 22:00 Stool Stool Occult Blood (BOBY) - Final Occult Blood Positive Physical Exam Const alert, oriented x3 and no apparent distress Constitutional Narrative: Looks better today. Better energy. General Appearance: cooperative Resp clear to auscultation bilaterally Cardio no gallops GI normal to inspection, nondistended, normoactive bowel sounds, soft to palpation and non-tender Extremity Extremity Narrative: the LLE is less swollen today. Thigh high MARTIN is in place now. The knee incision is intact with no significant [place]-incisional erythema and no purulent DC. The distal tibial incision is intact with no erythema and no purulent discharge. There is a small amount of serous drainage. Overall the leg he is less warm to touch than it was Wednesday and Wednesday. The erythema of the medial thigh and medial knee that is significantly. Denies calf tenderness today. He has his legs elevated. Assessment & Plan Assessment/Plan (1) Debility: (2) Status post total left knee replacement: (3) Infected prosthetic knee joint: QUALIFIERS: Encounter type: initial encounter Qualified Code(s): T84.59XA - Infection and inflammatory reaction due to other internal joint prosthesis, initial encounter; Z96.659 - Presence of unspecified artificial knee joint PLAN: Suspected. (4) Acute blood loss as cause of postoperative anemia: PLAN: Stable (5) Constipation: QUALIFIERS: Constipation type: unspecified constipation type Q ualified Code(s): K59.00 - Constipation, unspecified PLAN: resolved (6) HTN (hypertension): QUALIFIERS: Hypertension type: primary hypertension Qualified Code(s): I10 - Essential (primary) hypertension (7) Atrial fibrillation: QUALIFIERS: Atrial fibrillation type: paroxysmal Qualified Code(s): I48.0 - Paroxysmal atrial fibrillation PLAN: On Eliquis (8) Chronic renal failure, stage 3 (moderate): QUALIFIERS: Chronic kidney disease stage 3 subtype: unspecified whether 3a or 3b Qualified Code(s): N18.30 - Chronic kidney disease, stage 3 unspecified PLAN: Fluctuates between 3A and 3B. (9) Elevated hemoglobin A1c: PLAN: 5.8. PLAN: Plan 1. Continue therapy 2. DC doxycycline and start Rocephin and vancomycin. He gets hives with penicillin and does not know if he has ever had a cephalosporin. 3. Consult Dr. Weston from infectious disease 4. Await the results of the urine, blood and wound cultures 5. I left a VM at Dr. Figueroa's office telling them we suspect the joint is infected. I later spoke to Dr. Figueroa and updated him. 6. Add a carbohydrate consistency to the current heart health diet. Weight loss recommended. Charges/Coding Visit Charges Inpatient E&M: 94146 Subs Hosp L2
[2025-04-09] MEDS: Ceftriaxone 2 GM in 0.9% Normal Saline (50mL MB+) 50 ML IV (10:58)
[2025-04-09] MEDS: Vancomycin HCl 2,000 MG in 0.9% Normal Saline (500mL Bag) 500 ML 250 MG IV (11:36)
--- NOTE | 2025-04-09 11:58 | PCM.RX.CS ---
Consult Antibiotic Management Pharmacy has been consulted to manage selected antibiotic: Vancomycin Type of Intervention Type of Consult: New start Suspected Infection Suspected Infection: Other (EMPIRIC/FEVERS) Prior Doses of Antibiotics Prior Doses of Antibiotics Received/Current Regimen: Vancomycin 2000 mg IV x 1 given 04/09/25 @ 1136 Labs Labs: Sodium 137 mmol/L (133-145) 04/08/25 05:55 Potassium 4.2 mmol/L (3.3-5.1) 04/08/25 05:55 Chloride 101 mmol/L (98-108) 04/08/25 05:55 Carbon Dioxide 24.5 mmol/L (21.0-32.0) 04/08/25 05:55 Anion Gap 12 (5-15) 04/08/25 05:55 BUN 29 mg/dL (4-19) H 04/08/25 05:55 Creatinine 1.44 mg/dL (0.70-1.20) H 04/08/25 05:55 Est GFR (MDRD) Non-Af 53 (>60) L 04/08/25 05:55 BUN/Creatinine Ratio 19.8 RATIO (10-20) 04/08/25 05:55 Glucose 127 mg/dL (70-99) H 04/08/25 05:55 Microbiology Microbiology: Microbiology 04/07/25 12:00 Wound - Knee Gram Stain - Final 04/07/25 12:00 Wound - Knee Wound Culture - Preliminary No growth-Final to follow 04/07/25 12:00 Wound - Leg, Left Gram Stain - Final 04/07/25 12:00 Wound - Leg, Left Wound Culture - Preliminary No growth-Final to follow 04/06/25 22:00 Stool Stool Occult Blood (BOBY) - Final Occult Blood Positive Dosing Weight Weight used for dosin kg Estimated Creatinine Clearance Estimated Creatinine Clearance: ~ 72 Goal Trough Goal Trough: 15-20 mcg/mL Pharmacy Plan for Drug Dosing Pharmacy Plan for Drug Dosing: Vancomycin 2000 mg IV x 1 followed by 1750 mg Q12H Pharmacy Service will continue to monitor and adjust dosing as required. Follow-Up Labs Follow-Up Labs: Trough: Vancomycin Date/Time Labs Ordered Labs to be done on [date and time ordered]: 04/10/25 @ 2300
--- NOTE | 2025-04-09 12:04 | NURSING ---
Dressing to left knee and harrison changed. Left harrison incision draining a small amount of serous fluid, renay intact, 4x4 gauze applied, secured with tape. Left knee dressing had no drainage, renay intact, x2 ABDs applied secured with tape. Patient tolerated dressing change well. MARTIN hose reapplied. Denies additional needs at this time.
--- NOTE | 2025-04-09 13:20 | CASEMGMT ---
Social Work IDT met with patient and brother for Team meeting. Discussed patient's progress in PT/OT/SN/BRAIDED RUG MAKER/MD. Educated to Medicare benefit. SW to update once days are received. Pt's goal is to return home alone. Pt is started on IV ATB and will monitor. SW to coordinate HHC vs OP therapy. Pt identified no DME needs. Will ReTeam weekly. SW will continue to follow for DC planning. Silvia Montaño CUSTODIAN ATHLETIC EQUIPMENT SUPERVISOR [employer]
--- NOTE | 2025-04-09 14:21 | VDLE_ITS ---
Reason For Study Reason For Study: Swelling LLE, Lt TKR RIGHT LEFT CFV is compressible, spontaneous, phasic, competent GSV is normal. and demonstrates normal augmentation. CFV is compressible, spontaneous, phasic, competent, Procedure and demonstrates normal augmentation. This is a venous duplex using B-mode, color flow and FV is compressible, spontaneous, phasic, competent spectral Doppler. and demonstrates normal augmentation. Exam performed portable in patient room. POP V is compressible, spontaneous, phasic, competent A preliminary report was called and/or faxed to and demonstrates normal augmentation. Patients RN. T/P Trunk is compressible. PTV is compressible. LT PerV is compressible. Lt GastrocV is DILATED and NON COMPRESSIBLE consistent with acute DVT. VL/Venous Duplex US, Unilateral Interpretation Summary Acute deep vein thrombosis is noted in the left gastrocnemius vein. Ordering Physician: Silva Daigle Referring Physician: Finn Ferrell Performed By: Delilah Wayne, LORENZO, RVT
--- NOTE | 2025-04-09 15:24 | PCM.CONS.GEN ---
Assessment & Plan Assessment/Plan (1) Fever: PLAN: Fever and chills s/p L knee replacement 04/02/[address] Figueroa. Some pain, redness, and swelling at L knee, not involving the incision. UA neg. Wound swab pending. Recommend covid swab, cxr, and dopplers. Is on eliquis. On empiric vanc/ceftriaxone. Will follow, thank you, d/w Dr. Daigle and Dr. Figueroa HPI Consult Data Date of Consult: 04/09/25 HPI Narrative Reason for Consultation: fever HPI Narrative: SHANNON OLSON, is a 69 M who presented to rehab unit after 04/02/[address] Figueroa. Over past few days, some increased redness, swelling, and pain in L knee. No issues with incision, scant serous drainage reported. Started po doxy yesterday. Last night developed shakes and chills, started on iv vanc/ceftriaxone, feeling much better today, pain and redness improved. Mild dry cough. No dysuria. Some nausea. No headache. Full ROS performed and neg except as noted above. [facility] Medical History Chronic renal failure, stage 3 (moderate) Gout DVT (deep venous thrombosis) History of hiatal hernia Left rotator cuff tear History of echocardiogram Anxiety Excessive bleeding PONV (postoperative nausea and vomiting) Sleep apnea History of stress test Wears glasses Depression High cholesterol Gastric reflux Difficulty swallowing Non-smoker COPD (chronic obstructive pulmonary disease) Shortness of breath on exertion Leg cramps History of edema Hypertension Cardiology follow-up encounter History of heart attack History of atrial fibrillation Chest pain Sensorineural hearing loss, bilateral Dysphagia Epidermal inclusion cyst NSVT (nonsustained ventricular tachycardia) Screening for malignant neoplasm of intestine Cholelithiasis with chronic cholecystitis COPD (chronic obstructive pulmonary disease) CAD (coronary artery disease) Atrial fibrillation severe degenerative arthritis of right hip Rheumatoid arthritis Obstructive sleep apnea syndrome history of ischemic stroke HTN (hypertension) Hyperlipidemia Esophageal reflux Coronary atherosclerosis of [place] coronary vessel Home Medications ?Medication ?Instructions ?Recorded ?Last Taken ?Type minoxidil 10 mg tablet 5 mg PO BID blood pressure 10/05/19 04/01/25 History nitroglycerin 0.4 mg sublingual 0.4 mg sublingual Q5-15M PRN cp 10/05/19 Unknown History tablet clopidogrel 75 mg tablet (Plavix) 75 mg PO DAILY anticoag 09/09/21 04/04/25 History apixaban 5 mg tablet (Eliquis) 5 mg PO BID AFIB 10/30/21 04/04/25 History isosorbide mononitrate 30 mg 60 mg PO DAILY . 01/07/22 05/20/23 History tablet,extended release 24 hr metoprolol succinate 50 mg 25 mg PO DAILY heart rate 04/07/23 04/02/25 04:00 History tablet,extended release 24 hr torsemide 20 mg tablet 20 mg PO DAILY urination 04/07/23 04/01/25 History amiodarone 200 mg tablet 200 mg PO DAILY blood pressure 05/20/23 04/02/25 04:00 History allopurinol 100 mg tablet 100 mg PO DAILY gout 03/05/25 04/01/25 History amlodipine 5 mg tablet 5 mg PO DAILY blood pressure 03/05/25 04/02/25 04:00 History aspirin 81 mg capsule 81 mg PO DAILY heart health 04/02/25 04/01/25 History acetaminophen 500 mg tablet 1,000 mg (2 x 500 mg) PO Q8 pain 04/04/25 04/04/25 Rx 14 days #84 tabs oxycodone 5 mg tablet 5 - 10 mg (1 - 2 x 5 mg) PO Q4H 04/04/25 04/04/25 10:00 Rx PRN PRN pain 7 days #42 tabs Allergy/AdvReac Type Severity Reaction Status Date / Time Penicillins Allergy Hives Verified 04/02/25 06:58 Family History Sister Cancer ovarian Diabetes Brother Diabetes Mother Heart disease Hypertension Father Prostate cancer Surgical History History of right shoulder replacement History of hernia repair History of bilateral cataract extraction History of thrombectomy History of repair of rotator cuff History of carpal tunnel release of both wrists History of arthroscopic knee surgery S/P PTCA (percutaneous transluminal coronary angioplasty) Hx of cholecystectomy History of colonoscopy (~2014) History of esophagogastroduodenoscopy (EGD) (~2014) History of knee joint replacement History of total right hip arthroplasty History of inguinal hernia repair History of left shoulder replacement History of total left hip arthroplasty History of coronary angioplasty History of heart artery stent History of cardiac catheterization Social History household members: none Smoking Status: Never smoker alcohol intake: never substance use type: does not use Physical Exam Const alert, oriented x3 and no apparent distress General Appearance: cooperative HEENT normocephalic and head/scalp atraumatic Eyes PERRL and EOMs intact bilaterally Neck supple and No nodes Resp normal air movement and clear to auscultation bilaterally Cardio regular rate, regular rhythm and no murmurs GI soft to palpation, non-tender and non-distended Extremity General Extremity: edema Skin Skin Narrative: Faint redness around L knee but not involving incision which is dry and intact. Some pain to palpation. Neuro CN's II-XII intact bilaterally Lab / Micro Data Attestation: I reviewed the patient's lab results. 04/09/25 05:25 04/08/25 05:55 Labs: Laboratory Results - last 24 hr 04/09/25 02:32: Urine Color Yellow, Urine Clarity Clear, Urine pH 6.0, Ur Specific [place] 1.015, Urine Protein 15 H, Urine Glucose (UA) Normal, Urine Ketones Negative, Urine Occult Blood Negative, Urine Nitrite Negative, Urine Bilirubin Negative, Urine Urobilinogen Normal, Ur Leukocyte Esterase Negative, Urine RBC 0 SEEN, Urine WBC 0-5 SEEN, Ur Squamous Epith Cells 0-5 SEEN, Urine Bacteria 1+, Urine Mucus 0 SEEN 04/09/25 05:25: WBC 10.3, RBC 3.03 L, Hgb 9.1 L, Hct 28.5 L, MCV 94.1 H, MCH 30.0, MCHC 31.9 L, RDW Std Deviation 46.6 H, RDW Coeff of Santhosh 13.6, Plt Count 316, MPV 9.0, Immature Gran % (Auto) 1.500 H, Neut % (Auto) 77.6 H, Lymph % (Auto) 10.9 L, [place] % (Auto) 8.4, Eos % (Auto) 1.1, Baso % (Auto) 0.5, Absolute Neuts (auto) 8.0 H, Absolute Lymphs (auto) 1.13, Nucleated RBC % 0, Procalcitonin 0.17 H Micro: Microbiology 04/07/25 12:00 Wound - Knee Gram Stain - Final 04/07/25 12:00 Wound - Knee Wound Culture - Preliminary No growth-Final to follow 04/07/25 12:00 Wound - Leg, Left Gram Stain - Final 04/07/25 12:00 Wound - Leg, Left Wound Culture - Preliminary No growth-Final to follow
--- NOTE | 2025-04-09 15:50 | CASEMGMT ---
Social Work Medicare approved 13 days with DC 04/16. SW updated pt and SW to follow up with pt closer to DC to finalize plans. Pt appreciative. Silvia Montaño TOOL DIE MAKER VERIFYING MACHINE OPERATOR
--- NOTE | 2025-04-09 16:00 | RAD_ITS ---
PROCEDURE: CHEST PA AND LATERAL 04/09/2025 REASON FOR EXAM: COUGH/FEVER TECHNIQUE: Procedure Code: RADCXR Modality: DX Procedure: CHEST PA AND LATERAL COMPARISON: Chest x-ray of 06/20/2024. RAD/Chest PA and Lateral IMPRESSION: Examination somewhat limited by hypoinflation and patient motion. Partially visualized right shoulder prosthesis noted. Mild degenerative change s of the spine are seen. Lungs appear clear of acute disease. No pleural effusion or pneumothorax is noted. The cardiomediastinal silhouette is remarkable for a somewhat tortuous aorta; n o evidence of cardiomegaly. No evidence of acute cardiopulmonary disease. Reading Location: [place] [id number]
[2025-04-09 16:53] VITALS: BP 124/61; PULSE 72; RESP 17; TEMP 37.6; O2SAT 97
--- NOTE | 2025-04-09 17:00 | NURSING ---
Vancomycin and Rocephin infused prior with no adverse reaction for possible L knee infection. Dr. Daigle viewed incision and redness around L knee. Dr. Daigle aware of Doppler report. Patient reports he is doing much better today compared to yesterday and pain has improved as well.
[2025-04-09] MEDS: Vancomycin HCl 1,750 MG in 0.9% Normal Saline (500mL Bag) 500 ML 250 MG IV (23:20)
[2025-04-10 06:30] VITALS: BP 131/66; PULSE 74; RESP 16; TEMP 37; O2SAT 95
[2025-04-10] MEDS: Ceftriaxone 2 GM in 0.9% Normal Saline (50mL MB+) 50 ML IV (08:08)
[2025-04-10 08:13] VITALS: BP 119/57; PULSE 67
[2025-04-10] MEDS: 0.9% Saline Lock 10 ML Syringe IV (08:13)
[2025-04-10] MEDS: Metoprolol(XL)Succ 25 MG Tablet PO (08:13)
[2025-04-10] MEDS: APIXABAN 5 MG TABLET PO ×2 (08:14→20:08)
[2025-04-10] MEDS: Senna/Docusate Sodium 1 Tablet 2 TABLET PO ×2 (08:14→20:08)
[2025-04-10] MEDS: Polyethylene Glycol 3350 17 GM PACKET PO (08:18)
--- NOTE | 2025-04-10 10:25 | PCM.PN.ID ---
Physical Exam Narrative Feeling fine, no fever. Some leg soreness while working with PT. Mild dry cough. Const alert and no apparent distress General Appearance: cooperative Resp normal air movement and clear to auscultation bilaterally Cardio regular rate and regular rhythm GI soft to palpation, non-tender and non-distended Extremity General Extremity: edema Skin Skin Narrative: L knee incisions no drainage ID ID: Route of nutrition/ use of supplements: [] Nutritional Intake: [] IV Site: [] Morgan Catheter: [] Assessment & Plan Assessment/Plan (1) Fever: PLAN: Fever and chills s/p L knee replacement 04/02/[address] Figueroa. Some pain, redness, and swelling at L knee, not involving the incision. UA neg. Wound swab neg so far. Covid neg, resp pcr panel neg, cxr neg. No further fever. Will stop vanc, cont ceftriaxone for now. Will follow
--- NOTE | 2025-04-10 11:12 | PN_ITS ---
Subjective Subjective Day #2 ceftriaxone Afebrile today VSS -blood pressure is well-controlled and heart rate is within normal limits. Maintaining appropriate oxygen saturation on RA Oral intake - FOOD good FLUIDS good Discussed with nursing - Nurse told me he had blisters on the L lateral foot so I examined. 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 Reviewed the THERAPY notes Medication list reviewed. He is receiving 5 mg of oxycodone with breakfast and 10 mg at bedtime. Last night he requested an additional dose of oxycodone at approximately 2 AM. He took 1 extra dose yesterday during the day. Respiratory panel was negative. Chest x-ray was negative. COVID is negative. Venous ultrasound showed acute deep vein thrombosis in the left gastrocnemius vein. Patient is on Eliquis. I reviewed the ID note from today. Vancomycin has been discontinued and will continue ceftriaxone for now. Blood and urine cultures are still pending. Culture of the serous drainage from the distal incision that is growing in rare growth of a coag negative staph. Denies any shaking chills or nausea today. Tells me that the knee pain is gradually getting better. He states he slept well last night. No chest pain and no shortness of breath. Occasional cough. Objective Data Objective Data Vital Signs: Vital Signs Temp Pulse Resp BP Pulse Ox O2 Del Method O2 Flow Rate 98.6 F 67 16 119/57 L 95 Room Air 2 04/10/25 06:30 04/10/25 08:13 04/10/25 06:30 04/10/25 08:13 04/10/25 06:30 04/10/25 08:15 04/06/25 17:31 Oxygen Flow Rate (L/min) 2 Oxygen Delivery Method Room Air Weight: 309 lb 1.409 oz Body Mass Index (BMI) 39.6 Intake & Output: Intake and Output for Last 24 Hours 04/08/25 04/09/25 04/10/25 23:59 23:59 23:59 Intake Total 1600 / 1600 2510 / 2510 1265 / 1265 Output Total 850 / 850 2180 / 2180 850 / 850 Balance 750 / 750 330 / 330 415 / 415 Lab / Micro Data 04/09/25 05:25 04/08/25 05:55 Micro: Microbiology 04/07/25 12:00 Wound - Knee Gram Stain - Final 04/07/25 12:00 Wound - Knee Wound Culture - Final Coag Negative Staph 04/07/25 12:00 Wound - Leg, Left Gram Stain - Final 04/07/25 12:00 Wound - Leg, Left Wound Culture - Final No growth aerobically. 04/09/25 15:53 Mucosa - Nose Respiratory Panel (PCR) - Final 04/09/25 14:50 Nasal Secretion SARS-CoV-2 Antigen (Rapid) - Final 04/06/25 22:00 Stool Stool Occult Blood (BOBY) - Final Occult Blood Positive Radiography Diagnostic Testing: Radiology Impression Venous Doppler Study 04/09/25 14:21 Interpretation Summary Acute deep vein thrombosis is noted in the left gastrocnemius vein. Ordering Physician: Silva Daigle Referring Physician: Finn Ferrell Performed By: Delilah Wayne, KOTACS, RVT Chest X-Ray 04/09/25 16:00 IMPRESSION: Examination somewhat limited by hypoinflation and patient motion. Partially visualized right shoulder prosthesis noted. Mild degenerative changes of the spine are seen. Lungs appear clear of acute disease. No pleural effusion or pneumothorax is noted. The cardiomediastinal silhouette is remarkable for a somewhat tortuous aorta; no evidence of cardiomegaly. No evidence of acute cardiopulmonary disease. Reading Location: [place] [id number] Physical Exam Const alert, oriented x3 and no apparent distress General Appearance: cooperative HEENT moist oral mucous membranes Resp clear to auscultation bilaterally Extremity General Extremity: edema left Skin Skin Narrative: No purulent discharge from the incisions. No virginia-incisional erythema. Still with very significant swelling from the going distally on the left. Venous ultrasound shows a clot in the left gastrocnemius vein.......... he is on Eliquis 5 mg twice daily. No significant calf tenderness. Erythema of the medial left thigh and medial knee has resolved. Assessment & Plan Assessment/Plan (1) Debility: (2) Status post total left knee replacement: (3) Infected prosthetic knee joint: QUALIFIERS: Encounter type: initial encounter Qualified Code(s): T84.59XA - Infection and inflammatory reaction due to other internal joint prosthesis, initial encounter; Z96.659 - Presence of unspecified artificial knee joint PLAN: Suspected. (4) Acute blood loss as cause of postoperative anemia: PLAN: Stable (5) Constipation: QUALIFIERS: Constipation type: unspecified constipation type Q ualified Code(s): K59.00 - Constipation, unspecified PLAN: resolved (6) HTN (hypertension): QUALIFIERS: Hypertension type: primary hypertension Qualified Code(s): I10 - Essential (primary) hypertension (7) Atrial fibrillation: QUALIFIERS: Atrial fibrillation type: paroxysmal Qualified Code(s): I48.0 - Paroxysmal atrial fibrillation PLAN: On Eliquis (8) Chronic renal failure, stage 3 (moderate): QUALIFIERS: Chronic kidney disease stage 3 subtype: unspecified whether 3a or 3b Qualified Code(s): N18.30 - Chronic kidney disease, stage 3 unspecified PLAN: Fluctuates between 3A and 3B. (9) Elevated hemoglobin A1c: PLAN: 5.8. PLAN: Plan 1. Continue therapy 2. discontinuation of the vancomycin by Dr. Weston. 3. Will add a probiotic to the drug regimen. Charges/Coding Visit Charges Inpatient E&M: 37524 [facility] Hosp L1
[2025-04-10] MEDS: Lactobacillis Acidophilus 1 CAP PO ×2 (12:43→20:08)
[2025-04-10 18:00] VITALS: BP 119/57; PULSE 68; RESP 16; TEMP 37.2; O2SAT 93
[2025-04-10 20:00] VITALS: PULSE 68; RESP 16; O2SAT 93
[2025-04-11] MEDS: 0.9% Saline Lock 10 ML Syringe IV (01:57)
[2025-04-11 05:00] VITALS: BP 130/58; PULSE 64; RESP 16; TEMP 36.7; O2SAT 95
[2025-04-11] MEDS: APIXABAN 5 MG TABLET PO ×2 (08:02→21:48)
[2025-04-11 08:03] VITALS: BP 125/50; PULSE 73
[2025-04-11] MEDS: Senna/Docusate Sodium 1 Tablet 2 TABLET PO ×2 (08:03→21:47)
[2025-04-11] MEDS: Metoprolol(XL)Succ 25 MG Tablet PO (08:03)
[2025-04-11] MEDS: Lactobacillis Acidophilus 1 CAP PO ×2 (08:04→21:48)
[2025-04-11] MEDS: Ceftriaxone 2 GM in 0.9% Normal Saline (50mL MB+) 50 ML IV (09:30)
[2025-04-11 10:20] VITALS: BMI 39.3
--- NOTE | 2025-04-11 10:48 | PCM.PROGNOTE ---
Subjective Subjective Day #3 ceftriaxone low grade temp of 99.1 although asymptomatic. VSS -130/58 Maintaining appropriate oxygen saturation on RA of 95% Oral intake - FOOD good FLUIDS good Discussed with nursing - Temp of 99.1. I did visualize the surgical incision. Edges are well approximated. NO erythema, heat or drainage noted. Gallo in place. Reviewed the THERAPY Medication list reviewed. He is receiving 5 mg of oxycodone with breakfast and 10 mg at bedtime. Last night he requested an additional dose of oxycodone at 0157am. . Venous ultrasound showed acute deep vein thrombosis in the left gastrocnemius vein. continue to monitor. Patient is on Eliquis. Continue ceftriaxone for now. Blood and urine cultures are both negative for growth. Culture of the serous drainage from the distal incision that is growing in rare growth of a coag negative staph. Denies any shaking chills or nausea today. Tells me that the knee pain is getting better and is currently a 1/10. He states he slept well last night. No chest pain and no shortness of breath. Objective Data Objective Data Vital Signs: Vital Signs Temp Pulse Resp BP Pulse Ox O2 Del Method O2 Flow Rate 98.1 F 73 16 125/50 H 95 Room Air 2 04/11/25 05:00 04/11/25 08:03 04/11/25 05:00 04/11/25 08:03 04/11/25 05:00 04/11/25 08:42 04/06/25 17:31 Oxygen Flow Rate (L/min) 2 Oxygen Delivery Method Room Air Weight: 306 lb 6 oz Body Mass Index (BMI) 39.3 Intake & Output: Intake and Output for Last 24 Hours 04/09/25 04/10/25 04/11/25 23:59 23:59 23:59 Intake Total 2510 / 2510 2014 1120 / 1120 Output Total 2180 / 2180 1550 / 1550 350 / 350 Balance 330 / 330 465 / 465 770 / 770 Lab / Micro Data Attestation: I reviewed the patient's lab results. Lab results narrative: from 2 days ago. Reviewed culture results today showing no growth for blood and urine cultures. 04/09/25 05:25 04/08/25 05:55 Micro: Microbiology 04/09/25 02:32 Urine, Clean Catch Urine Culture - Final Culture exhibits no growth. 04/09/25 05:25 Blood Culture (Wb) - Anticubital Right Blood Culture - Preliminary No growth in 48 hours. 04/09/25 05:25 Blood Culture (Wb) - Anticubital Left Blood Culture - Preliminary No growth in 48 hours. 04/07/25 12:00 Wound - Knee Gram Stain - Final 04/07/25 12:00 Wound - Knee Wound Culture - Final Coag Negative Staph 04/07/25 12:00 Wound - Leg, Left Gram Stain - Final 04/07/25 12:00 Wound - Leg, Left Wound Culture - Final No growth aerobically. 04/09/25 15:53 Mucosa - Nose Respiratory Panel (PCR) - Final 04/09/25 14:50 Nasal Secretion SARS-CoV-2 Antigen (Rapid) - Final 04/06/25 22:00 Stool Stool Occult Blood (BOBY) - Final Occult Blood Positive Radiography Diagnostic Testing: Radiology Impression Venous Doppler Study 04/09/25 14:21 Interpretation Summary Acute deep vein thrombosis is noted in the left gastrocnemius vein. Ordering Physician: Silva Daigle Referring Physician: Finn Ferrell Performed By: Delilah Wayne, LORENZO, RVT Chest X-Ray 04/09/25 16:00 IMPRESSION: Examination somewhat limited by hypoinflation and patient motion. Partially visualized right shoulder prosthesis noted. Mild degenerative changes of the spine are seen. Lungs appear clear of acute disease. No pleural effusion or pneumothorax is noted. The cardiomediastinal silhouette is remarkable for a somewhat tortuous aorta; no evidence of cardiomegaly. No evidence of acute cardiopulmonary disease. Reading Location: [place] [address] Physical Exam Const alert, oriented x3 and no apparent distress General Appearance: cooperative HEENT moist oral mucous membranes Resp clear to auscultation bilaterally Extremity General Extremity: edema left Skin Skin Narrative: No purulent discharge from the incisions. No virginia-incisional erythema. No heat. Still with significant swelling from the going from the L knee to pedal. Venous ultrasound shows a clot in the left gastrocnemius vein.......... he is on Eliquis 5 mg twice daily. No significant calf tenderness. Assessment & Plan Assessment/Plan (1) Debility: (2) Status post total left knee replacement: (3) Infected prosthetic knee joint: QUALIFIERS: Encounter type: initial encounter Qualified Code(s): T84.59XA - Infection and inflammatory reaction due to other internal joint prosthesis, initial encounter; Z96.659 - Presence of unspecified artificial knee joint PLAN: Suspected. (4) Acute blood loss as cause of postoperative anemia: PLAN: Stable (5) Constipation: QUALIFIERS: Constipation type: unspecified constipation type Qualified Code(s): K59.00 - Constipation, unspecified PLAN: resolved (6) HTN (hypertension): (7) Atrial fibrillation: QUALIFIERS: Atrial fibrillation type: paroxysmal Qualified Code(s): I48.0 - Paroxysmal atrial fibrillation PLAN: On Eliquis (8) Chronic renal failure, stage 3 (moderate): QUALIFIERS: Chronic kidney disease stage 3 subtype: unspecified whether 3a or 3b Qualified Code(s): N18.30 - Chronic kidney disease, stage 3 unspecified PLAN: Fluctuates between 3A and 3B. (9) Elevated hemoglobin A1c: PLAN: 5.8. PLAN: Plan 1. Continue therapy 2. Continue with Rocephin. 3. probiotic to the drug regimen RT ABX. . Charges/Coding Visit Charges Inpatient E&M: 35395 Subs Hosp L1
[2025-04-11 17:26] VITALS: BP 126/69; PULSE 67; RESP 17; TEMP 37.1; O2SAT 95
[2025-04-11 21:30] VITALS: PULSE 67; RESP 17; O2SAT 95
[2025-04-12 06:00] VITALS: BP 128/60; PULSE 61; RESP 16; TEMP 37; O2SAT 95
[2025-04-12 07:24] VITALS: O2SAT 95
[2025-04-12 08:18] VITALS: BP 128/60; PULSE 61
[2025-04-12] MEDS: APIXABAN 5 MG TABLET PO ×2 (08:18→21:44)
[2025-04-12] MEDS: Lactobacillis Acidophilus 1 CAP PO ×2 (08:18→21:45)
[2025-04-12] MEDS: Metoprolol(XL)Succ 25 MG Tablet PO (08:18)
[2025-04-12] MEDS: Senna/Docusate Sodium 1 Tablet 2 TABLET PO ×2 (08:19→21:44)
[2025-04-12] MEDS: 0.9% Saline Lock 10 ML Syringe IV ×3 (08:22→21:44)
--- NOTE | 2025-04-12 10:38 | CASEMGMT ---
Social Work SW spoke with pt to follow up on DC plans. Pt will DC home 04/16. Pt is scheduled with [facility] and first appt is 04/06 - pt already completed. Pt denies DME needs and brother will transport. No other needs noted. Plan: DC home alone 04/16, [facility] Silvia Montaño [employer]
--- NOTE | 2025-04-12 10:51 | PN_ITS ---
Subjective Subjective Day #4 Magdahin Afebrile-no fever since 04/09/2025 at 5 PM. VSS -blood pressures are well-controlled and the heart rate is within normal limits. Maintaining appropriate oxygen saturation on RA Oral intake - FOOD good FLUIDS good Discussed with nursing - no problems that need addressed Reviewed the THERAPY notes Medication list reviewed. -Usually taking 1 dose of as needed oxycodone 5 mg daily. He is on scheduled oxycodone 5 mg in the a.m. and 10 mg at at bedtime. Denies headache, lightheadedness, chest pain, shortness of breath, constipation and dysuria. Pain is adequately controlled and he is sleeping well at night. Objective Data Objective Data Vital Signs: Vital Signs Temp Pulse Resp BP Pulse Ox O2 Del Method O2 Flow Rate 98.6 F 61 16 128/60 H 95 Room Air 2 04/12/25 06:00 04/12/25 08:18 04/12/25 06:00 04/12/25 08:18 04/12/25 07:24 04/12/25 07:24 04/06/25 17:31 Oxygen Flow Rate (L/min) 2 Oxygen Delivery Method Room Air Weight: 306 lb 6 oz Body Mass Index (BMI) 39.3 Intake & Output: Intake and Output for Last 24 Hours 04/10/25 04/11/25 04/12/25 23:59 23:59 23:59 Intake Total 2014 2480 / 2480 400 / 400 Output Total 1550 / 1550 550 / 550 550 / 550 Balance 465 / 465 1930 / 1930 -150 / -150 Lab / Micro Data 04/09/25 05:25 04/08/25 05:55 Micro: Microbiology 04/09/25 02:32 Urine, Clean Catch Urine Culture - Final Culture exhibits no growth. 04/09/25 05:25 Blood Culture (Wb) - Anticubital Right Blood Culture - Preliminary No growth in 48 hours. 04/09/25 05:25 Blood Culture (Wb) - Anticubital Left Blood Culture - Preliminary No growth in 48 hours. 04/07/25 12:00 Wound - Knee Gram Stain - Final 04/07/25 12:00 Wound - Knee Wound Culture - Final Coag Negative Staph 04/07/25 12:00 Wound - Leg, Left Gram Stain - Final 04/07/25 12:00 Wound - Leg, Left Wound Culture - Final No growth aerobically. 04/09/25 15:53 Mucosa - Nose Respiratory Panel (PCR) - Final 04/09/25 14:50 Nasal Secretion SARS-CoV-2 Antigen (Rapid) - Final 04/06/25 22:00 Stool Stool Occult Blood (BOBY) - Final Occult Blood Positive Physical Exam Narrative Feeling fine, no fever, knee much improved. Const alert and no apparent distress General Appearance: cooperative Resp normal air movement and clear to auscultation bilaterally Cardio regular rate, regular rhythm and no gallops GI soft to palpation, non-tender and non-distended Extremity Extremity Narrative: The left knee incision is intact with no dehiscence, no purulent discharge and no virginia-incisional erythema. Swelling has gone down since admission and he is being more compliant with elevation. The erythema of the left medial thigh and left knee has resolved. No increased warmth to touch. General Extremity: edema left Skin no rashes or lesions noted Skin Narrative: L knee incision doing well Assessment & Plan Assessment/Plan (1) Debility: (2) Status post total left knee replacement: (3) Infected prosthetic knee joint: QUALIFIERS: Encounter type: initial encounter Qualified Code(s): T84.59XA - Infection and inflammatory reaction due to other internal joint prosthesis, initial encounter; Z96.659 - Presence of unspecified artificial knee joint PLAN: Suspect infection more consistent with cellulitis and not joint infection. Now AF and the pain is much improved. Erythema has resolved. (4) Acute blood loss as cause of postoperative anemia: PLAN: Stable (5) Constipation: QUALIFIERS: Constipation type: unspecified constipation type Q ualified Code(s): K59.00 - Constipation, unspecified PLAN: resolved (6) HTN (hypertension): QUALIFIERS: Hypertension type: primary hypertension Qualified Code(s): I10 - Essential (primary) hypertension (7) Atrial fibrillation: QUALIFIERS: Atrial fibrillation type: paroxysmal Qualified Code(s): I48.0 - Paroxysmal atrial fibrillation PLAN: On Eliquis (8) Chronic renal failure, stage 3 (moderate): QUALIFIERS: Chronic kidney disease stage 3 subtype: unspecified whether 3a or 3b Qualified Code(s): N18.30 - Chronic kidney disease, stage 3 unspecified PLAN: Fluctuates between 3A and 3B. (9) Elevated hemoglobin A1c: PLAN: 5.8. PLAN: Plan 1. Continue therapy 2. I discussed antibiotics with Dr. Weston. Will continue Rocephin 2 g IV daily until discharge which is on Wednesday 3. Recheck a CBC with differential, BMP, ESR and CRP on Wednesday. Charges/Coding Visit Charges Inpatient E&M: 52011 Subs Hosp L1
--- NOTE | 2025-04-12 10:52 | PCM.PN.ID ---
Physical Exam Narrative Feeling fine, no fever, knee much improved. Const alert and no apparent distress General Appearance: cooperative Resp normal air movement and clear to auscultation bilaterally Cardio regular rate and regular rhythm GI soft to palpation, non-tender and non-distended Extremity General Extremity: edema Skin no rashes or lesions noted Skin Narrative: L knee incision doing well ID ID: Route of nutrition/ use of supplements: [] Nutritional Intake: [] IV Site: [] Morgan Catheter: [] Assessment & Plan Assessment/Plan (1) Fever: PLAN: Fever and chills s/p L knee replacement 04/02/[address] Figueroa. Improved pain, redness, and swelling at L knee, not involving the incision. UA neg. Wound swab neg so far. Covid neg, resp pcr panel neg, cxr neg. No further fever. Will stop vanc, cont ceftriaxone for now with stop date Wednesday. Will follow as needed, d/w Dr. Daigle
[2025-04-12] MEDS: Ceftriaxone 2 GM in 0.9% Normal Saline (50mL MB+) 50 ML IV (10:58)
[2025-04-12 17:31] VITALS: BP 130/61; PULSE 63; RESP 18; TEMP 36.9; O2SAT 96
--- NOTE | 2025-04-12 21:33 | NURSING ---
Pt complains of nausea, dizziness, pain in l knee intermittent sharp pains. VSS 128/62, hr 66, spo2 93 on ra, rr 18, temp 99.8. Assessment essentially negative. See assessment. Gingerale and crackers provided.
--- NOTE | 2025-04-12 23:42 | NURSING ---
Nausea resolved with gingerale and crackers. Pt resting quietly.
[2025-04-13 06:00] VITALS: BP 116/92; PULSE 69; RESP 17; TEMP 37.7; O2SAT 96
[2025-04-13] MEDS: Senna/Docusate Sodium 1 Tablet 2 TABLET PO ×2 (09:14→21:50)
[2025-04-13] MEDS: Lactobacillis Acidophilus 1 CAP PO ×2 (09:14→21:48)
[2025-04-13] MEDS: APIXABAN 5 MG TABLET PO ×2 (09:14→21:48)
[2025-04-13] MEDS: Ceftriaxone 2 GM in 0.9% Normal Saline (50mL MB+) 50 ML IV (09:15)
[2025-04-13 09:16] VITALS: BP 122/58; PULSE 66
[2025-04-13] MEDS: Metoprolol(XL)Succ 25 MG Tablet PO (09:16)
[2025-04-13] MEDS: 0.9% Normal Saline 250 ML IV.SOLN. IV (09:16)
[2025-04-13] MEDS: 0.9% Saline Lock 10 ML Syringe IV (09:22)
--- NOTE | 2025-04-13 09:49 | PN_ITS ---
Subjective Subjective Day #5 Irene Temp was 99.9 at 0600 today. Recheck at 1000 is 99.2 VSS and BP is well controlled. Slept well last night. Per nursing had nausea last night........resolved with gingerale and crackers. He is c/o vertigo this morning. He has had this at home in the past and he has never seen a doctor for this.......it passes without treatment. He denies lightheadedness........tells me that room is spinning. Therapy and nursing tell me that he is ambulating without loss of balance. He was able to complete toilet transfer, toileting and hand hygiene at mod I this morning. Timo denies cephalgia, chest pain, shortness of breath, cough, abdominal pain, dysuria. He has some calf tightness on the left but does not c/o pain. Denies difficulty swallowing. Denies mouth pain or painful swallowing. Did not take any as needed oxycodone yesterday. Objective Data Objective Data Vital Signs: Vital Signs Temp Pulse Resp BP Pulse Ox O2 Del Method O2 Flow Rate 99.9 F H 66 17 122/58 H 96 Room Air 2 04/13/25 06:00 04/13/25 09:16 04/13/25 06:00 04/13/25 09:16 04/13/25 06:00 04/13/25 06:00 04/06/25 17:31 Oxygen Flow Rate (L/min) 2 Oxygen Delivery Method Room Air Weight: 306 lb 6 oz Body Mass Index (BMI) 39.3 Intake & Output: Intake and Output for Last 24 Hours 04/11/25 04/12/25 04/13/25 23:59 23:59 23:59 Intake Total 2480 / 2480 950 / 1150 275 / 275 Output Total 550 / 550 750 / 1000 430 / 430 Balance 1930 / 1930 200 / 150 -155 / -155 Lab / Micro Data 04/09/25 05:25 04/08/25 05:55 Micro: Microbiology 04/09/25 02:32 Urine, Clean Catch Urine Culture - Final Culture exhibits no growth. 04/09/25 05:25 Blood Culture (Wb) - Anticubital Right Blood Culture - Preliminary No growth in 48 hours. 04/09/25 05:25 Blood Culture (Wb) - Anticubital Left Blood Culture - Preliminary No growth in 48 hours. 04/07/25 12:00 Wound - Knee Gram Stain - Final 04/07/25 12:00 Wound - Knee Wound Culture - Final Coag Negative Staph 04/07/25 12:00 Wound - Leg, Left Gram Stain - Final 04/07/25 12:00 Wound - Leg, Left Wound Culture - Final No growth aerobically. 04/09/25 15:53 Mucosa - Nose Respiratory Panel (PCR) - Final 04/09/25 14:50 Nasal Secretion SARS-CoV-2 Antigen (Rapid) - Final 04/06/25 22:00 Stool Stool Occult Blood (BOBY) - Final Occult Blood Positive Physical Exam Narrative Feeling fine, no fever, knee much improved. Const alert, oriented x3 and no apparent distress Constitutional Narrative: Refused breakfast today. Does not look ill. He is not diaphoretic. General Appearance: cooperative Orientation / Consciousness: awake, oriented to person, oriented to place and oriented to time Exam Limitations: physical limitations Nutritional Appearance: overweight HEENT normocephalic and moist oral mucous membranes HEENT Narrative: No nystagmus Eyes PERRL Eyes Narrative: Wears bifocals Sclera: sclera normal Neck full ROM Resp clear to auscultation bilaterally Cardio regular rate and regular rhythm Rate: regular rate Rhythm: other Other Details: Currently not in atrial fibrillation via auscultation and palpation Peripheral Pulses: pulses 2+ throughout GI normal to inspection, nondistended, normoactive bowel sounds and soft to palpation GI Narrative: Last BM was 04/11. Auscultation: normoactive bowel sounds no CVA tenderness Back/Spine no CVA tenderness Extremity Extremity Narrative: Has some tightness in the calf on the left which is more likely than not secondary to edema and not to DVT......No increase in the pain with dorsiflexion of the foot. No erythema of the LLE. The incision is intact with no dehiscence and there is no DC. Swelling is going down......he is keeping it elevated more. No ankle edema on the right General Extremity: edema left Skin no rashes or lesions noted and skin turgor normal Skin Narrative: L knee incision doing well Rashes: no rashes Neuro CN's II-XII intact bilaterally and no focal motor deficits Sensorium / Orientation: awake, alert, oriented to person, oriented to place and oriented to time Psych mental status grossly normal Assessment & Plan Assessment/Plan (1) Debility: (2) Status post total left knee replacement: (3) Infected prosthetic knee joint: QUALIFIERS: Encounter type: initial encounter Qualified Code(s): T84.59XA - Infection and inflammatory reaction due to other internal joint prosthesis, initial encounter; Z96.659 - Presence of unspecified artificial knee joint PLAN: Suspect infection more consistent with cellulitis and not joint infection. Now AF and the pain is much improved. Erythema has resolved. (4) Acute blood loss as cause of postoperative anemia: PLAN: Stable (5) Constipation: QUALIFIERS: Constipation type: unspecified constipation type Q ualified Code(s): K59.00 - Constipation, unspecified PLAN: resolved (6) HTN (hypertension): QUALIFIERS: Hypertension type: primary hypertension Qualified Code(s): I10 - Essential (primary) hypertension (7) Atrial fibrillation: QUALIFIERS: Atrial fibrillation type: paroxysmal Qualified Code(s): I48.0 - Paroxysmal atrial fibrillation PLAN: On Eliquis (8) Chronic renal failure, stage 3 (moderate): QUALIFIERS: Chronic kidney disease stage 3 subtype: unspecified whether 3a or 3b Qualified Code(s): N18.30 - Chronic kidney disease, stage 3 unspecified PLAN: Fluctuates between 3A and 3B. (9) Elevated hemoglobin A1c: PLAN: 5.8. (10) Vertigo: PLAN: Plan 1. Continue therapy 2. Continue Rocephin until the day of discharge which is 04/16/2025 3. Give 12.5 mg of meclizine now and reassess for effectiveness. Start meclizine 12.5 mg 3 times daily as needed vertigo. Physical therapist is going to teach him Apley's maneuvers. 4. CBC with differential, ESR, CRP and BMP ordered for Wednesday 5. Transition him to as needed oxycodone only 6. Check orthostatics today Charges/Coding Visit Charges Inpatient E&M: 33104 Subs Hosp L1
[2025-04-13 11:24] VITALS: BP 112/56; BP 118/61; BP 126/67; PULSE 62; PULSE 74
--- NOTE | 2025-04-13 15:18 | PCM.DC ---
Discharge Instructions DC O2, CPAP, BIPAP needs Home O2 Discharge instructions: No Dressing / Incision Discharge Activity: May Not Drive (May not drive until released to drive by Dr. Figueroa), May Shower and Use Walker Weight Bearing Status: Full weight bearing Keep extremity elevated above heart level: Left Leg Dressing / Incision Call your doctor if your incision/area has: Continuous Slow Oozing, Sudden Increased Bleeding, Increased Pain/ Swelling, Increased Redness, Foul Smelling Discharge, Swelling at the incision site and - (you woill have the renay removed at your appt at [facility] on Wednesday and you will not need a dressing. ) Call your doctor if you observe: Fever of 101 or Higher, Shortness of breath, Fainting spells, Chest pain, Increased palpitations (irregular heartbeat), Calf discomfort and Uncontrolled pain Suture Line Care: Avoid Pulling/Pushing and Avoid Pinching/Bending Cleanse incision/area with: Soap & Water Follow Up Care When: You will need to follow-up with Dr. Figueroa and you have an appointment for Wednesday. You also have an appointment to follow-up with Dr. Ferrell scheduled for 04/25/2025. Appointments are listed later in this document. Test Results: Test results from this visit will be discussed in further detail at your follow-up appointment, if applicable. Pending Tests Upon Discharge: None Discharge Plan Admission Admit Date/Time: 04/04/25 13:23 Primary Reason for Your Visit: Debility secondary to total knee replacement on the left Attending Provider: Silva Daigle Primary Care Provider: Finn Ferrell Consulting Providers: Dwayne Weston Instructions Patient Instructions: Caring for Your Incision, BPPV Additional Instructions / Restrictions: 1. You will not need antibiotics after you leave rehab. I suspect the infection was more superficial and in the soft tissues rather than in the joint itself. The redness has completely resolved and you are no longer having fevers and chills. The left knee is not warm to touch. 2. I think you have a condition called benign paroxysmal positional vertigo. I am giving you some literature to read about this condition. It is related to an imbalance and the fluid in the inner ear. Sandra taught you how to do Nany's maneuvers to get the vertigo to go away. This is a recurrent condition and you will probably have it from time to time. 3. You have a small blood clot in the gastrocnemius vein which is in your left calf. Generally these blood clots are small and have no serious consequences. The treatment is to keep you on anticoagulation and you will continue to take Eliquis. If calf pain gets worse or you have sudden onset of chest pain or shortness of breath you should call your PCP for advice or go to the ER. Dr. Ferrell or Dr. Figueroa may want to recheck an ultrasound in a week or 2 to make sure the clot is not getting bigger (propagating). 4. No driving until Dr. Figueroa releases you to drive. 5. Keep the left leg elevated when you are sitting in a chair to help with the swelling. Continue to wear the compression stocking. 6. If you have any questions after you leave rehab please do not hesitate to call me. OFFICE: [phone] CELL: [phone] NURSES [facility] REHAB: [phone] Discharge Orders/Prescriptions Prescriptions: New meclizine 12.5 mg Tablet 12.5 mg PO TID PRN (Reason: vertigo) Qty: 12 0RF sennosides-docusate sodium [Stimulant Laxative Plus] 8.6-50 mg Tablet 2 tab PO BID Qty: 84 0RF Continued nitroglycerin 0.4 mg tablet, sublingual 0.4 mg SUBLINGUAL Q5-15M PRN (Reason: cp) Rx Instructions: do not exceed 3 doses per episode minoxidil 10 mg tablet 5 mg PO BID Patient Comments: TAKE ONE-HALF TABLET BY MOUTH TWICE DAILY Eliquis 5 mg tablet 5 mg PO BID metoprolol succinate 50 mg tablet extended release 24 hr 25 mg PO DAILY torsemide 20 mg tablet 20 mg PO DAILY clopidogrel [Plavix] 75 mg Tablet 75 mg PO DAILY isosorbide mononitrate 30 mg Tablet Extended Release 24 Hr 60 mg PO DAILY amiodarone 200 mg tablet 200 mg PO DAILY Patient Comments: TAKE ONE TABLET BY MOUTH DAILY amlodipine 5 mg tablet 5 mg PO DAILY allopurinol 100 mg tablet 100 mg PO DAILY aspirin 81 mg capsule 81 mg PO DAILY oxycodone 5 mg Tablet 5 - 10 mg PO Q4H PRN PRN (Reason: pain) 7 Days Qty: 42 0RF Changed acetaminophen 500 mg Tablet 1,000 mg PO Q8 PRN (Reason: pain) 14 Days Qty: 84 0RF Rx Instructions: Do not take more than 3000 mg Tylenol in a 24-hour period. Referrals / Follow Up: [facility] [Provider Group] - 04/16/25 1:30 pm Finn Ferrell MD [Primary Care Provider, Family Practice] - 04/25/25 9:50 am Disposition Disposition (needs filled in before D/C Order can be placed): Home, Self Care
--- NOTE | 2025-04-13 15:49 | PCM.PN.BLA ---
Progress Note Vertigo improved with Meclizine. He was shown Nany's maneuvers and he did get some relief with this. Will prescribe meclizine 12.5 mg 3 times daily through the and reassess Wednesday morning. Check a temp 3 times daily for the next 3 days. Lab has been ordered for Wednesday to recheck CBC with differential, BMP, ESR and sed rate. I examined the knee today and there is no erythema, no purulent discharge, no increased warmth to touch over what is expected with inflammation. Assessment & Plan Assessment/Plan (1) DVT (deep venous thrombosis): QUALIFIERS: DVT location: lower extremity Affected thrombotic vein of extremity: calf muscle vein Chronicity: acute Laterality: left Qualified Code(s): I82.462 - Acute embolism and thrombosis of left calf muscular vein PLAN: He will continue on Eliquis 5 mg BID. Repeat an US in 1 week to make sure it is not propagating. Will defer to orthopedics to order if they feel necessary. (2) Vertigo: PLAN: Suspect BPPV - has had in the past but, never sought treatment.
--- NOTE | 2025-04-13 15:55 | PCM.DC.SUM ---
Providers Date of Admission: 04/04/25 Date of Discharge: 04/16/25 Primary Care Physician: Dr. Finn Ferrell MD Consultations 04/09/25 10:32 Consult: Infectious Disease Routine Consulting Provider: Dwayne Weston Reason for Consult: infected prosthetic joint R knee EMERGENT Consult: No MD Notified: Yes Date Notified: 04/09/25 Time Notified: 10:33 Method of Notification: Text Reason For Visit: LEFT TOTAL KNEE Diagnosis Discharge Diagnosis (1) Debility: Status: Acute Code(s): R53.81 - Other malaise (2) Status post total left knee replacement: Status: Acute Code(s): Z96.652 - Presence of left artificial knee joint (3) DVT (deep venous thrombosis): Status: Acute Code(s): I82.409 - Acute embolism and thrombosis of unspecified deep veins of unspecified lower extremity Qualifiers: Affected thrombotic vein of extremity: calf muscle vein Chronicity: acute DVT location: lower extremity Laterality: left Qualified Code(s): I82.462 - Acute embolism and thrombosis of left calf muscular vein Plan: DVT in the left gastrocnemius vein. Has a positive history of DVT in the past. He will continue on Eliquis 5 mg BID which he takes chronically for atrial fibrillation. Repeat an US in 1 1-2 weeks to make sure it is not propagating. Will defer to orthopedics or Dr. Ferrell to order if they feel necessary. No CP and no SOB while on rehab. (4) Cellulitis: Status: Acute Code(s): L03.90 - Cellulitis, unspecified Qualifiers: Laterality: left Site of cellulitis: extremity Site of cellulitis of extremity: lower extremity Qualified Code(s): L03.116 - Cellulitis of left lower limb Plan: Fever, chills and sweats post L TKA. Had erythema and increased warmth to touch. exam more consistent with cellulitis than a infected prosthetic joint. Seen By Dr. Weston. Treated with 8 days of antibiotics. No antibiotics needed at DC from rehab. (5) Vertigo: Status: Acute Code(s): R42 - Dizziness and giddiness Plan: Suspect BPPV - has had in the past but, never sought treatment. Improved with Meclizine and Nany's maneuvers. (6) Acute blood loss as cause of postoperative anemia: Status: Acute Code(s): D62 - Acute posthemorrhagic anemia (7) Elevated hemoglobin A1c: Status: Acute Code(s): R73.09 - Other abnormal glucose (8) Obesity: Status: Chronic Code(s): E66.9 - Obesity, unspecified Qualifiers: Body mass index: BMI 39.0-39.9 Obesity classification: adult class 2 (BMI 35 - 39.9) Obesity type: due to excess calories Serious obesity comorbidity presence: with serious comorbidity Qualified Code(s): E66.812 - Obesity, class 2; Z68.39 - Body mass index [BMI] 39.0-39.9, adult Plan 1. Discharge home 2. Outpatient physical therapy at [facility]. Brother will transport. 3. Has follow-up scheduled with [facility] on 1123 for staple remover 4. Follow-up scheduled with Dr. Ferrell on 04/25/2025 for primary care Medications at Discharge Home Medications minoxidil 10 mg tablet 5 mg PO BID blood pressure 10/05/19 nitroglycerin 0.4 mg sublingual tablet 0.4 mg sublingual Q5-15M PRN cp 10/05/19 clopidogrel 75 mg tablet (Plavix) 75 mg PO DAILY anticoag 09/09/21 apixaban 5 mg tablet (Eliquis) 5 mg PO BID AFIB 10/30/21 isosorbide mononitrate 30 mg tablet,extended release 24 hr 60 mg PO DAILY . 01/07/22 metoprolol succinate 50 mg tablet,extended release 24 hr 25 mg PO DAILY heart rate 04/07/23 torsemide 20 mg tablet 20 mg PO DAILY urination 04/07/23 amiodarone 200 mg tablet 200 mg PO DAILY blood pressure 05/20/23 allopurinol 100 mg tablet 100 mg PO DAILY gout 03/05/25 amlodipine 5 mg tablet 5 mg PO DAILY blood pressure 03/05/25 aspirin 81 mg capsule 81 mg PO DAILY heart health 04/02/25 acetaminophen 500 mg tablet 1,000 mg (2 x 500 mg) PO Q8 PRN pain 14 days #84 tabs 04/13/25 meclizine 12.5 mg tablet 12.5 mg PO TID PRN vertigo #12 tabs 04/13/25 oxycodone 5 mg tablet 5 - 10 mg (1 - 2 x 5 mg) PO Q4H PRN PRN pain 7 days #42 tabs 04/13/25 sennosides 8.6 mg-docusate sodium 50 mg tablet (Stimulant Laxative Plus) 2 tab PO BID #84 tabs 04/13/25 prednisone 20 mg tablet 20 mg PO DAILY #2 tabs 04/16/25 Hospital Course Operations total knee replacement (04/02/[address] Figueroa) and - Procedures None Summary of Care Provided Minutes Spent on Discharge: 40 Hospital Course: Timo was admitted to [facility] on 04/02/2025 for a scheduled left total knee arthroplasty by Dr. Terry Figueroa. He was transferred to the acute inpatient rehab unit on 04/04/2025 for 3 hours of therapy daily to restore function/independence at or near his level prior to surgery. Hemoglobin at admission to rehab was 9.1, down from 13.8 on 03/13/2025. He has chronically on Eliquis 5 mg twice daily for paroxysmal atrial fibrillation and history of a stroke. Hemoccult stool was checked and was positive. He denied any epigastric pain. On 04/07/25 he c/o increased pain in the Left knee. He also complained of nausea and just not feeling well. The Left leg had increased swelling but, he had not been elevating and did not consistently wear MARITN hose. On PE there was redness of the medial thigh and also the medial knee. There was increased warmth to touch. The incision wqs intact with no virginia-incisional erythema and no purulent discharge from the knee incision. There was a small amount of serous drainage from the distal incision over the tibia. That incision also had no virginia-incisional erythema and no purulent discharge. CBC on 04/07/2025 showed a white blood cell count of 9.7 with 77% neutrophils and 1.4% immature granulocytes which shows up from 1.1% immature granulocytes on the third postoperative day. ESR was normal at 12 but the CRP was elevated at 108. He continued to complain of shaking chills and sweats and increased pain. On 04/08/25 he wqs started on Doxycycline 100 mg BID. At approximately midnight on 04/08/2025 he had a temp of 100.4. The following morning was 99.7. The night hospitalist ordered a culture of the drainage which ultimately grew a rare growth of coag negative staph. Blood cultures were ordered and they had no growth. White blood cell count on 04/09/2025 was 10.3 with 78% neutrophils and 1.5% immature granulocytes. He was started on Rocephin and Vancomycin and Dr. Weston was consulted. Dr. Weston suggested a COVID test, respiratory panel, chest x-ray and an ultrasound of the left lower extremity. The respiratory panel and COVID were negative. The chest x-ray revealed no infiltrates. The venous ultrasound of the left calf showed a clot in the gastrocnemius vein. Patient was already taking Eliquis 5 mg p.o. twice daily which had been held prior to surgery and was restarted following surgery. He denied any chest pain or shortness of breath. Vancomycin was discontinued on 04/12/2025 because the cultures had no growth. Dr. Weston recommended continuing Rocephin 2 g IV daily until the patient was discharged on 04/16/2025. The redness of the L medial thigh and the medial knee completely resolved. Swelling improved and he stated the pain was better following the initiation of antibiotics. CBC with diff, BMP and ESR and CRP were repeated on 04/15/25. The white blood cell count was within normal limits. ESR was 24 and the CRP was down to 30 from 104 on 04/09/2025. Hemoglobin is up to 9.7 from 9.1 the previous week. The creatinine is stable at 1.41 and the BUN is down to 19 from 29 the preceding week. 1 day prior to discharge Timo developed pain in the dorsum of the left foot. He stated that it felt like his gout. The left foot was swollen and had mild redness over the dorsum of the foot. No significant increase in warmth to touch. He has a hx of gout and takes Allopurinol 100 mg daily. The last UA on record was 7.9 in december 2024. For patients with hx of gout keeping the UA < 6 (if no tophi) and less than 5 if tophi present helps to prevent acute gouty attacks. It is not uncommon to have an acute attack after a surgery and it often helps to pretreat with a day or 2 of Prednisone prior to surgery. Timo was given 1 odse of Toradol 15 mg IV prior to DC and a dose of Prednisone 20 mg. He will take Prednisone 20 mg Wednesday and Wednesday a.m. with breakfast and then discontinue. Timo was discharged on 04/16/25 and will be going home. He plans on having PT at [facility]. He has follow-up appointment scheduled with Dr. Figueroa and he Dr. Ferrell. Physical Exam Const alert, oriented x3 and no apparent distress General Appearance: cooperative HEENT normocephalic, head/scalp atraumatic and moist oral mucous membranes HEENT Narrative: No thrush Eyes PERRL, EOMs intact bilaterally, conjunctivae normal and no scleral icterus Eyes Narrative: No discharge from the eyes Neck supple Chest Chest: symmetrical chest wall rise Resp normal respiratory effort and clear to auscultation bilaterally Effort and Inspection: able to speak in complete sentences Cardio regular rate, regular rhythm and no gallops Cardio Narrative: Has had PAF during his admission to rehab but, rate is controlled when in AF. He will continue eliquis. HGB is improving and is up to 9.7 at OR. GI normal to inspection, nondistended, normoactive bowel sounds, soft to palpation and non-tender GI Narrative: No guarding with palpation Extremity no calf tenderness Extremity Narrative: The left foot is swollen over the dorsum of the foot. There is mild pinkish discoloration over the dorsum and it is very tender to even light touch. No significant increase in warmth to touch when compared to the right. No openings in the skin. He had tight jeans on when I saw him obn the day of OR and I did not examine his knee. He has an appt with ortho today. When I examined the Left knee on 04/13/25 the incision was intact with no purulent discharge, no virginia-incisional erythema and no significant swelling immediately around the renay. The redness over the left medial thigh and left medial knee has completely resolved. Psych mental status grossly normal, thought process normal, cooperative and affect normal Weight / BMI Weight Weight: 306 lb 6 oz Body Mass Index (BMI) 39.3 ABG / Lab / Microbiology Data 04/15/25 06:23 04/15/25 06:23 Microbiology: Microbiology 04/09/25 05:25 Blood Culture (Wb) - Anticubital Right Blood Culture - Final No growth in 5 days. 04/09/25 05:25 Blood Culture (Wb) - Anticubital Left Blood Culture - Final No growth in 5 days. 04/09/25 02:32 Urine, Clean Catch Urine Culture - Final Culture exhibits no growth. 04/07/25 12:00 Wound - Knee Gram Stain - Final 04/07/25 12:00 Wound - Knee Wound Culture - Final Coag Negative Staph 04/07/25 12:00 Wound - Leg, Left Gram Stain - Final 04/07/25 12:00 Wound - Leg, Left Wound Culture - Final No growth aerobically. 04/09/25 15:53 Mucosa - Nose Respiratory Panel (PCR) - Final 04/09/25 14:50 Nasal Secretion SARS-CoV-2 Antigen (Rapid) - Final 04/06/25 22:00 Stool Stool Occult Blood (BOBY) - Final Occult Blood Positive D/C Instructions Weight Bearing Status: Full weight bearing Keep extremity elevated above heart level: Left Leg Call your doctor if your incision/area has: Continuous Slow Oozing, Sudden Increased Bleeding, Increased Pain/ Swelling, Increased Redness, Foul Smelling Discharge, Swelling at the incision site and - (you woill have the renay removed at your appt at [facility] on Wednesday and you will not need a dressing. ) Call your doctor if you observe: Fever of 101 or Higher, Shortness of breath, Fainting spells, Chest pain, Increased palpitations (irregular heartbeat), Calf discomfort and Uncontrolled pain Suture Line Care: Avoid Pulling/Pushing and Avoid Pinching/Bending Cleanse incision/area with: Soap & Water DC O2, CPAP, BIPAP Needs Home O2 Discharge instructions: No Pending Tests Upon Discharge: None When: You will need to follow-up with Dr. Figueroa and you have an appointment for Wednesday. You also have an appointment to follow-up with Dr. Ferrell scheduled for 04/25/2025. Appointments are listed later in this document. Meaningful Use Info Meaningful Use Meaningful Use Diagnoses (Choose all that apply): None applicable Discharge Plan Admission Admit Date/Time: 04/04/25 13:23 Primary Reason for Your Visit: Debility secondary to total knee replacement on the left Attending Provider: Silva Daigle Primary Care Provider: Finn Ferrell Consulting Providers: Dwayne Weston Patient Instructions: Uric Acid (Blood), Treating Gout Attacks, Caring for Your Incision, BPPV Additional Instructions / Restrictions: 1. You will not need antibiotics after you leave rehab. I suspect the infection was more superficial and in the soft tissues rather than in the joint itself. The redness has completely resolved and you are no longer having fevers and chills. The left knee is not warm to touch. 2. I think you have a condition called benign paroxysmal positional vertigo. I am giving you some literature to read about this condition. It is related to an imbalance and the fluid in the inner ear. Sandra taught you how to do Nany's maneuvers to get the vertigo to go away. This is a recurrent condition and you will probably have it from time to time. 3. You have a small blood clot in the gastrocnemius vein which is in your left calf. Generally these blood clots are small and have no serious consequences. The treatment is to keep you on anticoagulation and you will continue to take Eliquis. If calf pain gets worse or you have sudden onset of chest pain or shortness of breath you should call your PCP for advice or go to the ER. Dr. Ferrell or Dr. Figueroa may want to recheck an ultrasound in a week or 2 to make sure the clot is not getting bigger (propagating). 4. No driving until Dr. Figueroa releases you to drive. 5. Keep the left leg elevated when you are sitting in a chair to help with the swelling. Continue to wear the compression stocking. 6. I think the pain in your left foot is due to gout. Generally I treat this with 3 daily doses of Prednisone. Prednisone is a great antiinflammatory. Allopurinol is a medication to prevent gout.....it keeps the uric acid level down. When a patient has a hx of gout it is customary to keep the uric acid level 6 or less. Your last uric acid in December was 7.9. you may want to talk with Dr. Ferrell about increasing the dose of Allopurinol to 200 mg AFTER the acute gout has resolved. Then would recheck the uric acid again in 1 month after the increase. 7. If you have any questions after you leave rehab please do not hesitate to call me. OFFICE: [phone] CELL: [phone] NURSES STATION ON REHAB: [phone] Discharge Orders/Prescriptions Prescriptions: New meclizine 12.5 mg Tablet 12.5 mg PO TID PRN (Reason: vertigo) Qty: 12 0RF sennosides-docusate sodium [Stimulant Laxative Plus] 8.6-50 mg Tablet 2 tab PO BID Qty: 84 0RF prednisone 20 mg tablet 20 mg PO DAILY Qty: 2 0RF Rx Instructions: Take 1 tab Wednesday with breakfast and 1 tab Wednesday with breakfast. Continued nitroglycerin 0.4 mg tablet, sublingual 0.4 mg SUBLINGUAL Q5-15M PRN (Reason: cp) Rx Instructions: do not exceed 3 doses per episode minoxidil 10 mg tablet 5 mg PO BID Patient Comments: TAKE ONE-HALF TABLET BY MOUTH TWICE DAILY Eliquis 5 mg tablet 5 mg PO BID metoprolol succinate 50 mg tablet extended release 24 hr 25 mg PO DAILY torsemide 20 mg tablet 20 mg PO DAILY clopidogrel [Plavix] 75 mg Tablet 75 mg PO DAILY isosorbide mononitrate 30 mg Tablet Extended Release 24 Hr 60 mg PO DAILY amiodarone 200 mg tablet 200 mg PO DAILY Patient Comments: TAKE ONE TABLET BY MOUTH DAILY amlodipine 5 mg tablet 5 mg PO DAILY allopurinol 100 mg tablet 100 mg PO DAILY aspirin 81 mg capsule 81 mg PO DAILY oxycodone 5 mg Tablet 5 - 10 mg PO Q4H PRN PRN (Reason: pain) 7 Days Qty: 42 0RF Changed acetaminophen 500 mg Tablet 1,000 mg PO Q8 PRN (Reason: pain) 14 Days Qty: 84 0RF Rx Instructions: Do not take more than 3000 mg Tylenol in a 24-hour period. Referrals / Follow Up: [facility] [Provider Group] - 04/16/25 1:30 pm Finn Ferrell MD [Primary Care Provider, Family Practice] - 04/25/25 9:50 am Disposition Disposition (needs filled in before D/C Order can be placed): Home, Self Care Charges/Coding Visit Charges Inpatient E&M: 30938 Disch Hosp >30min
[2025-04-13 18:00] VITALS: BP 150/69; PULSE 71; RESP 16; TEMP 35.5; O2SAT 98
[2025-04-14 06:00] VITALS: BP 142/64; PULSE 87; RESP 16; TEMP 36.3; O2SAT 97
[2025-04-14] MEDS: Senna/Docusate Sodium 1 Tablet 2 TABLET PO ×2 (08:07→20:57)
[2025-04-14 08:08] VITALS: BP 121/60; PULSE 64
[2025-04-14] MEDS: Lactobacillis Acidophilus 1 CAP PO ×2 (08:08→20:56)
[2025-04-14] MEDS: APIXABAN 5 MG TABLET PO ×2 (08:08→20:56)
[2025-04-14] MEDS: Metoprolol(XL)Succ 25 MG Tablet PO (08:08)
[2025-04-14] MEDS: Ceftriaxone 2 GM in 0.9% Normal Saline (50mL MB+) 50 ML IV (10:04)
[2025-04-14 17:57] VITALS: BP 123/56; PULSE 63; RESP 18; TEMP 37.1; O2SAT 97
[2025-04-14] MEDS: 0.9% Saline Lock 10 ML Syringe IV (20:57)
[2025-04-15 05:38] VITALS: BP 124/63; PULSE 70; RESP 18; TEMP 37; O2SAT 96
[2025-04-15 06:53] LABS: Hematocrit 30.2 % (40-54); Hemoglobin 9.7 g/dL (13.0-16.5); Mean Corp Hgb Conc 32.1 g/dL (32-36); Mean Corpuscular Volume 94.1 fL (80-94); Mean Platelet Vol. 8.7 fl (6.2-12.0); Platelet Count 423 K/mm3 (150-450); RBC Distribution Width CV 13.5 % (11.6-14.6); RBC Distribution Width SD 46.3 fl (35.1-43.9); Red Blood Count 3.21 M/mm3 (4.6-6.2); White Blood Count 10.1 K/mm3 (4.4-11.0)
[2025-04-15 07:32] LABS: Anion Gap 10 (5-15); BUN 19 mg/dL (4-19); BUN/Creat Ratio 13.8 RATIO (10-20); CRP 30.40 mg/L (0.0-3.0); Calcium,Total 9.2 mg/dL (7.6-11.0); Carbon Dioxide 24.3 mmol/L (21.0-32.0); Chloride 108 mmol/L (98-108); Estimated Creatinine Clearance 73.37 ml/min (50-250); Glucose 116 mg/dL (70-99); Potassium 4.1 mmol/L (3.3-5.1)
[2025-04-15] MEDS: Lactobacillis Acidophilus 1 CAP PO ×2 (08:23→20:53)
[2025-04-15 08:24] VITALS: PULSE 77
[2025-04-15] MEDS: Metoprolol(XL)Succ 25 MG Tablet PO (08:24)
[2025-04-15] MEDS: Senna/Docusate Sodium 1 Tablet 2 TABLET PO ×2 (08:24→20:54)
[2025-04-15] MEDS: APIXABAN 5 MG TABLET PO ×2 (08:24→20:53)
[2025-04-15] MEDS: 0.9% Saline Lock 10 ML Syringe IV (09:28)
[2025-04-15] MEDS: Ceftriaxone 2 GM in 0.9% Normal Saline (50mL MB+) 50 ML IV (09:28)
[2025-04-15 18:00] VITALS: BP 117/57; PULSE 61; RESP 16; TEMP 36.4; O2SAT 97
[2025-04-15 21:05] VITALS: BP 129/62; PULSE 66
[2025-04-16 05:35] VITALS: BP 137/64; PULSE 70; RESP 16; TEMP 36.9; O2SAT 97
[2025-04-16] MEDS: 0.9% Saline Lock 10 ML Syringe IV ×3 (05:38→08:55)
--- NOTE | 2025-04-16 07:45 | PCM.PROGNOTE ---
Subjective Subjective Afebrile VSS - Maintaining appropriate oxygen saturation on RA Oral intake - FOOD good FLUIDS good Discussed with nursing - per nursing he is c/o pain in his L foot. He has a hx of gout and he takes allopurinol. Reviewed the THERAPY notes Medication list reviewed. All lab drawn yesterday was personally reviewed. White blood cell count is normal at 10.1. Hemoglobin is 9.7, up from 9.1 on 04/09/2025. Platelets are within normal limits. ESR is 24. CRP is down to 30.4 from 108 1 week ago. Sodium is 142 and the potassium is stable at 4.1. BUN is 19, down from 29 1 week ago. Creatinine is stable at 1.41. Timo tells me that the pain in his foot feels like when he gets gout. States the knee pain is better and it feels good. No CP and no SOB. Denies calf pain. Objective Data Objective Data Vital Signs: Vital Signs Temp Pulse Resp BP Pulse Ox O2 Del Method O2 Flow Rate 98.5 F 70 16 137/64 H 97 Room Air 2 04/16/25 05:35 04/16/25 05:35 04/16/25 05:35 04/16/25 05:35 04/16/25 05:35 04/16/25 05:35 04/06/25 17:31 Oxygen Flow Rate (L/min) 2 Oxygen Delivery Method Room Air Weight: 306 lb 6 oz Body Mass Index (BMI) 39.3 Intake & Output: Intake and Output for Last 24 Hours 04/14/25 04/15/25 04/16/25 23:59 23:59 23:59 Intake Total 2049 / 0 2150 / 2150 500 / 500 Output Total 1250 / 1250 1800 / 1800 550 / 550 Balance 800 / 800 350 / 350 -50 / -50 Lab / Micro Data 04/15/25 06:23 04/15/25 06:23 Labs: Laboratory Results - last 24 hr 04/15/25 06:23: ESR 24 H Micro: Microbiology 04/09/25 05:25 Blood Culture (Wb) - Anticubital Right Blood Culture - Final No growth in 5 days. 04/09/25 05:25 Blood Culture (Wb) - Anticubital Left Blood Culture - Final No growth in 5 days. 04/09/25 02:32 Urine, Clean Catch Urine Culture - Final Culture exhibits no growth. 04/07/25 12:00 Wound - Knee Gram Stain - Final 04/07/25 12:00 Wound - Knee Wound Culture - Final Coag Negative Staph 04/07/25 12:00 Wound - Leg, Left Gram Stain - Final 04/07/25 12:00 Wound - Leg, Left Wound Culture - Final No growth aerobically. 04/09/25 15:53 Mucosa - Nose Respiratory Panel (PCR) - Final 04/09/25 14:50 Nasal Secretion SARS-CoV-2 Antigen (Rapid) - Final 04/06/25 22:00 Stool Stool Occult Blood (BOBY) - Final Occult Blood Positive Physical Exam Const alert and oriented x3 General Appearance: cooperative Cardio regular rate and regular rhythm Extremity Extremity Narrative: The dorsum of the L foot is swollen and a little red but, not cornel warm to touch. Assessment & Plan Assessment/Plan (1) Acute gouty arthritis: PLAN: Plan 1. DC today 2. Has an appt with Dr. Figueroa today to remove renay. 3. Toradol 15 mg IV now. Prednisone 20 mg PO now and RX an additional 2 doses oFprednisone 20 mg for Wednesday and Wednesday.
[2025-04-16] MEDS: Lactobacillis Acidophilus 1 CAP PO (08:46)
[2025-04-16] MEDS: Senna/Docusate Sodium 1 Tablet 2 TABLET PO (08:46)
[2025-04-16] MEDS: APIXABAN 5 MG TABLET PO (08:46)
[2025-04-16 08:47] VITALS: BP 122/62; PULSE 71
[2025-04-16] MEDS: Metoprolol(XL)Succ 25 MG Tablet PO (08:47)
[2025-04-16] MEDS: Ceftriaxone 2 GM in 0.9% Normal Saline (50mL MB+) 50 ML IV (08:54)
[2025-04-16 12:54] VITALS: BP 119/65; PULSE 77; RESP 16; TEMP 37.2; O2SAT 94
== END 2025-04-16 12:55 | disposition home or self-care (01) | DRG 470 ==
PROVIDERS: Family Medicine; Nurse Practitioner Family; Admitting Provider Internal Medicine; PCP Family Medicine; Visit Provider Internal Medicine
DX: Z47.1 Aftercare following joint replacement surgery (principal); I13.0 Hypertensive heart and chronic kidney disease with heart failure and stage 1 through stage 4 chronic kidney disease, or unspecified chronic kidney disease; T84.54XA Infection and inflammatory reaction due to internal left knee prosthesis, initial encounter; L03.116 Cellulitis of left lower limb; I82.462 Acute embolism and thrombosis of left calf muscular vein; I50.9 Heart failure, unspecified; J44.89 Other specified chronic obstructive pulmonary disease; N18.30 Chronic kidney disease, stage 3 unspecified; M06.9 Rheumatoid arthritis, unspecified; E66.812 Obesity, class 2; I48.0 Paroxysmal atrial fibrillation; E78.00 Pure hypercholesterolemia, unspecified; I25.10 Atherosclerotic heart disease of native coronary artery without angina pectoris; K59.00 Constipation, unspecified; M17.12 Unilateral primary osteoarthritis, left knee; K21.9 Gastro-esophageal reflux disease without esophagitis; G47.33 Obstructive sleep apnea (adult) (pediatric); M10.9 Gout, unspecified; H81.10 Benign paroxysmal vertigo, unspecified ear; E55.9 Vitamin D deficiency, unspecified; I25.2 Old myocardial infarction; Z79.01 Long term (current) use of anticoagulants; Z95.5 Presence of coronary angioplasty implant and graft; Z86.718 Personal history of other venous thrombosis and embolism; Z96.652 Presence of left artificial knee joint; Z79.899 Other long term (current) drug therapy; Z79.02 Long term (current) use of antithrombotics/antiplatelets; Z68.39 Body mass index [BMI] 39.0-39.9, adult; Y79.2 Prosthetic and other implants, materials and accessory orthopedic devices associated with adverse incidents; B95.7 Other staphylococcus as the cause of diseases classified elsewhere
CPT/HCPCS: 36415; 71046; 73560; 80048; 80053; 81001; 82274; 82962; 83036; 83735; 84100; 84145; 85025; 85027; 85652; 86140; 87040; 87070; 87086; 87205; 87633; 87811; 93971; 94668; 94762; 97110; 97112; 97116; 97150; 97162; 97166; 97167; 97530; 97535; 97802; 97803; 99252; C1776; A4216; G0463; J0696; J2405; J3475

== ENCOUNTER → 2025-04-25 | Outpatient (CLI) | payer MEDICARE, OTHER, SELFPAY ==
[2025-04-25 12:43] LABS: Hematocrit 38.3 % (40-54); Hemoglobin 12.5 g/dL (13.0-16.5); Immature Granulocytes Count 0.080 X10^3/uL (0.0-0.0); Mean Corp Hgb Conc 32.6 g/dL (32-36); Mean Corpuscular Volume 91.2 fL (80-94); Mean Platelet Vol. 9.4 fl (6.2-12.0); NRBC Flagged by Analyzer 0 % (0-5); Platelet Count 493 K/mm3 (150-450); RBC Distribution Width CV 13.8 % (11.6-14.6); RBC Distribution Width SD 46.4 fl (35.1-43.9); Red Blood Count 4.20 M/mm3 (4.6-6.2); White Blood Count 11.7 K/mm3 (4.4-11.0)
[2025-04-25 13:10] LABS: Ferritin 823 ng/mL (37-417); Iron 71 ug/dL (65-175); Iron Binding Capacity,Total 250 ug/dL (250-450); Iron Binding Capacity,Unsat 179 ug/dL (228-428); PSA,Total - Annual Screen 1.71 ng/mL (0.02-4.00)
== END | disposition home or self-care (01) ==
LOC: MFPLAB 09:55
PROVIDERS: PCP Family Medicine
DX: D50.0 Iron deficiency anemia secondary to blood loss (chronic) (principal); Z12.5 Encounter for screening for malignant neoplasm of prostate
CPT/HCPCS: 36415; 82728; 83540; 83550; 84153; 85025; G0103

== ENCOUNTER 2025-04-27 08:59 | Emergency (ER) | payer MEDICARE, OTHER, SELFPAY ==
[2025-04-27 09:00] VITALS: BP 132/91; PULSE 73; RESP 18; TEMP 36.6; O2SAT 100; BMI 36.1
--- NOTE | 2025-04-27 09:17 | ED.VIS.LOWEX ---
HPI History of Present Illness Chief Complaint: Lower Extremity Injury Informant: patient Narrative Narrative: 69 y/o patient with history of coronary artery disease with multiple stents and atrial fibrillation, recent left total knee arthroplasty (about 4 weeks ago), presents after an acute pop in the left knee while bending to put on a sock this morning, followed by severe pain along the medial/left side of the knee. Nearly fell from the bed due to pain. Reports initial severe pain now improved; able to ambulate. Denies numbness. Patient has not noticed any subsequent swelling. Pain increases with certain turning motions. Therapy had been going well with range of motion measured at 93? shortly after staple removal and later 110? after three sessions. Post-operative course complicated by infection and blood clot; gout flare occurred the day of planned discharge. Took a couple oxycodone doses today which has helped. On clopidogrel, Eliquis. [facility] Medical History (Updated 04/27/25 @ 10:03 by Renetta Martin) Atrial fibrillation Migraines Stroke/cerebrovascular accident Obesity Elevated hemoglobin A1c Chronic renal failure, stage 3 (moderate) HTN (hypertension) Gout DVT (deep venous thrombosis) History of hiatal hernia Esophageal dysphagia NSTEMI, initial episode of care Left thyroid nodule Rotator cuff disorder Left rotator cuff tear Skin lesion History of echocardiogram Anxiety Excessive bleeding PONV (postoperative nausea and vomiting) Sleep apnea History of stress test Diarrhea Gastritis Wears glasses Depression High cholesterol Gastric reflux Difficulty swallowing Non-smoker COPD (chronic obstructive pulmonary disease) Shortness of breath on exertion Leg cramps History of edema Hypertension Cardiology follow-up encounter History of heart attack History of atrial fibrillation Chest pain Total bilirubin, elevated Sensorineural hearing loss, bilateral Dysphagia Epidermal inclusion cyst NSVT (nonsustained ventricular tachycardia) Screening for malignant neoplasm of intestine Cholelithiasis with chronic cholecystitis COPD (chronic obstructive pulmonary disease) CAD (coronary artery disease) Atrial fibrillation severe degenerative arthritis of right hip Rheumatoid arthritis Obstructive sleep apnea syndrome history of ischemic stroke HTN (hypertension) Hyperlipidemia Esophageal reflux Coronary atherosclerosis of [place] coronary vessel Home Medications ?Medication ?Instructions ?Recorded ?Last Taken ?Type minoxidil 10 mg tablet 5 mg PO BID blood pressure 10/05/19 04/01/25 History nitroglycerin 0.4 mg sublingual 0.4 mg sublingual Q5-15M PRN cp 10/05/19 Unknown History tablet clopidogrel 75 mg tablet (Plavix) 75 mg PO DAILY anticoag 09/09/21 04/04/25 History apixaban 5 mg tablet (Eliquis) 5 mg PO BID AFIB 10/30/21 04/04/25 History isosorbide mononitrate 30 mg 60 mg PO DAILY . 01/07/22 05/20/23 History tablet,extended release 24 hr metoprolol succinate 50 mg 25 mg PO DAILY heart rate 04/07/23 04/02/25 04:00 History tablet,extended release 24 hr torsemide 20 mg tablet 20 mg PO DAILY urination 04/07/23 04/01/25 History amiodarone 200 mg tablet 200 mg PO DAILY blood pressure 05/20/23 04/02/25 04:00 History allopurinol 100 mg tablet 100 mg PO DAILY gout 03/05/25 04/01/25 History amlodipine 5 mg tablet 5 mg PO DAILY blood pressure 03/05/25 04/02/25 04:00 History aspirin 81 mg capsule 81 mg PO DAILY heart health 04/02/25 04/01/25 History acetaminophen 500 mg tablet 1,000 mg (2 x 500 mg) PO Q8 PRN 04/13/25 Unknown Rx pain 14 days #84 tabs meclizine 12.5 mg tablet 12.5 mg PO TID PRN vertigo #12 tabs 04/13/25 Unknown Rx oxycodone 5 mg tablet 5 - 10 mg (1 - 2 x 5 mg) PO Q4H 04/13/25 Unknown Rx PRN PRN pain 7 days #42 tabs sennosides 8.6 mg-docusate sodium 2 tab PO BID #84 tabs 04/13/25 Unknown Rx 50 mg tablet (Stimulant Laxative Plus) prednisone 20 mg tablet 20 mg PO DAILY #2 tabs 04/16/25 Unknown Rx Allergy/AdvReac Type Severity Reaction Status Date / Time Penicillins Allergy Hives Verified 04/27/25 09:02 Family History Sister Cancer ovarian Diabetes Brother Diabetes Mother Heart disease Hypertension Father Prostate cancer Surgical History (Updated 04/24/25 @ 00:01 by Starr Reardon) Status post total left knee replacement History of right shoulder replacement History of hernia repair History of bilateral cataract extraction History of thrombectomy History of repair of rotator cuff History of carpal tunnel release of both wrists History of arthroscopic knee surgery S/P PTCA (percutaneous transluminal coronary angioplasty) Hx of cholecystectomy History of colonoscopy (~2014) History of esophagogastroduodenoscopy (EGD) (~2014) History of knee joint replacement History of total right hip arthroplasty History of inguinal hernia repair History of left shoulder replacement History of total left hip arthroplasty History of coronary angioplasty History of heart artery stent History of cardiac catheterization Social History household members: none Smoking Status: Never smoker alcohol intake: never substance use type: does not use ROS ROS ED Constitutional Constitutional ED: Denies chills or fever(s) Musculoskeletal Musculoskeletal: Reports extremity pain; Denies neck pain Integumentary Denies Abrasions, rash or wounds Neurologic Neurologic: Denies paresthesias or weakness Hematologic/Lymphatic Hematologic/Lymphatic: Reports easy bleeding and easy bruising EXAM Physical Exam Const Vital Signs: 04/27/25 09:00 Temperature 98 F Temperature Source Oral Pulse Rate 73 Respiratory Rate 18 Blood Pressure 132/91 H Blood Pressure Mean 104 Pulse Ox 100 Oxygen Delivery Method Room Air Positive well nourished and well developed General Appearance ED: well developed and NAD Neck full ROM and supple Back/Spine normal ROM and normal to inspection Extremity Extremity Narrative: Almost full range of motion of the left knee, without apparent discomfort. Mild swelling, no large effusion. Healing anterior arthroplasty knee incision without signs of infection, discharge, dehiscence. No bony tenderness. No deformity. Extensor mechanism intact. Neurovascular intact distally palpable PT pulse. Neuro oriented x3, no focal motor deficits and no sensory deficits noted Sensorium / Orientation: alert Psych mental status grossly normal and thought process normal Skin no wounds Rashes: no rashes MDM MDM MDM Narrative Medical decision making narrative: 4 view x-ray series of the left knee were obtained, on my interpretation there is no acute fracture or dislocation. Radiology in agreement noting that there is an effusion present. Patient doing well with regards to pain today took some oxycodone prior to coming here. I placed an ice pack on his knee. I spoke with Dr. Arthur who is covering for Dr. Figueroa, who stated to regional for the patient to go home with an Ezekiel wrap, ice, limited activity, and follow-up with them after the weekend. I advised the patient since he has therapy today that I would call and cancel that so as not to exacerbate possible effusion/hemarthrosis. Per Dr. Arthur, possibly related to some scar tissue from recent surgery, supportive care advised for now we discussed reasons to return. Radiography Diagnostic Testing: Clinical Impression(s) from Imaging Studies Knee X-Ray 04/27/25 09:32 IMPRESSION: Large knee effusion. Otherwise, no acute findings. Reading Location: [facility] Management Discussion w/another healthcare provider: Endoscopy Specialty Technician (Dr. Arthur, ortho) Discharge Plan Triage Chief Complaint: Lower Extremity Injury ED Provider: Van Astorga Dx/Rx/DC Orders Clinical Impression: Pain in left knee, Effusion, left knee, Anticoagulated on apixaban Instructions: ED Fluid on the Knee Prescriptions: No Action nitroglycerin 0.4 mg tablet, sublingual 0.4 mg SUBLINGUAL Q5-15M PRN (Reason: cp) Rx Instructions: do not exceed 3 doses per episode minoxidil 10 mg tablet 5 mg PO BID Patient Comments: TAKE ONE-HALF TABLET BY MOUTH TWICE DAILY Eliquis 5 mg tablet 5 mg PO BID metoprolol succinate 50 mg tablet extended release 24 hr 25 mg PO DAILY torsemide 20 mg tablet 20 mg PO DAILY clopidogrel [Plavix] 75 mg Tablet 75 mg PO DAILY isosorbide mononitrate 30 mg Tablet Extended Release 24 Hr 60 mg PO DAILY amiodarone 200 mg tablet 200 mg PO DAILY Patient Comments: TAKE ONE TABLET BY MOUTH DAILY amlodipine 5 mg tablet 5 mg PO DAILY allopurinol 100 mg tablet 100 mg PO DAILY aspirin 81 mg capsule 81 mg PO DAILY meclizine 12.5 mg Tablet 12.5 mg PO TID PRN (Reason: vertigo) Qty: 12 0RF sennosides-docusate sodium [Stimulant Laxative Plus] 8.6-50 mg Tablet 2 tab PO BID Qty: 84 0RF acetaminophen 500 mg Tablet 1,000 mg PO Q8 PRN (Reason: pain) 14 Days Qty: 84 0RF Rx Instructions: Do not take more than 3000 mg Tylenol in a 24-hour period. oxycodone 5 mg Tablet 5 - 10 mg PO Q4H PRN PRN (Reason: pain) 7 Days Qty: 42 0RF prednisone 20 mg tablet 20 mg PO DAILY Qty: 2 0RF Rx Instructions: Take 1 tab Wednesday with breakfast and 1 tab Wednesday with breakfast. Primary Care Provider: Finn Ferrell Referrals: Finn Ferrell MD [Primary Care Provider, Family Practice] Terry Figueroa MD [Med Staff - Active Staff, Orthopedics] - As soon as possible Print Language: Armenian Disposition Disposition: Home, Self Care
--- NOTE | 2025-04-27 09:32 | RAD_ITS ---
PROCEDURE: KNEE 4 OR MORE VIEWS 04/27/2025 REASON FOR EXAM: NONTRAUMATIC PAIN, RECENT TKA TECHNIQUE: Procedure Code: RADKN Modality: DX Procedure: KNEE 4 OR MORE VIEWS Laterality: Status post total left knee replacement. COMPARISON: Left knee x-ray 04/02/2025. FINDINGS: Bones: No acute bony abnormalities. No acute periprosthetic fracture or loosening. Joints: Status post total left knee replacement. Effusion: Large knee effusion. Soft tissues: Soft tissue swelling. Vascular atherosclerotic calcifications. Other: RAD/Knee 4 or More Views IMPRESSION: Large knee effusion. Otherwise, no acute findings. Reading Location: [id number]
[2025-04-27 10:34] VITALS: BP 131/80; PULSE 69; RESP 18; TEMP 36.7; O2SAT 96
== END 2025-04-27 10:40 | disposition home or self-care (01) ==
PROVIDERS: Emergency Provider Emergency Medicine; PCP Family Medicine; Visit Provider Emergency Medicine
DX: M25.562 Pain in left knee (principal); I48.91 Unspecified atrial fibrillation; N18.30 Chronic kidney disease, stage 3 unspecified; I12.9 Hypertensive chronic kidney disease with stage 1 through stage 4 chronic kidney disease, or unspecified chronic kidney disease; M25.462 Effusion, left knee; X58.XXXA Exposure to other specified factors, initial encounter; Z96.652 Presence of left artificial knee joint; Z79.01 Long term (current) use of anticoagulants; Z79.02 Long term (current) use of antithrombotics/antiplatelets; Z79.82 Long term (current) use of aspirin; Z79.899 Other long term (current) drug therapy
CPT/HCPCS: 73564; 99282

== ENCOUNTER → 2025-05-01 | Outpatient (CLI) | payer MEDICARE, OTHER, SELFPAY ==
--- NOTE | 2025-05-01 08:54 | VDLE_ITS ---
Reason For Study Reason For Study: F/U LLE DVT RIGHT LEFT CFV is compressible, spontaneous, phasic, competent GSV is normal. and demonstrates normal augmentation. CFV is compressible, spontaneous, phasic, competent, Procedure and demonstrates normal augmentation. This is a venous duplex using B-mode, color flow and FV is compressible, spontaneous, phasic, competent and spectral Doppler. demonstrates normal augmentation. Exam performed in department. POP V is compressible, spontaneous, phasic, competent A preliminary report was called and/or faxed to and demonstrates normal augmentation. Mariaelena @ [phone] @ 10:10 am. T/P Trunk is compressible. PTV is compressible. LT PerV is compressible. LT GASTROCNEMIUS VEIN is DILATED & NONCOMPRESSIBLE. VL/Venous Duplex US, Unilateral Interpretation Summary Acute deep vein thrombosis is noted in the left gastrocnemius vein. Negative for propagation. Ordering Physician: Finn Ferrell Referring Physician: Finn Ferrell Performed By: Sandrine Melton RDCS, RVT
== END | disposition home or self-care (01) ==
LOC: CVS 08:51
PROVIDERS: PCP Family Medicine; Referring Provider Family Medicine; Visit Provider Family Medicine
DX: I82.462 Acute embolism and thrombosis of left calf muscular vein (principal)
CPT/HCPCS: 93971

== ENCOUNTER → 2025-05-22 | Outpatient (CLI) | payer MEDICARE, OTHER, SELFPAY ==
--- NOTE | 2025-05-22 09:18 | VDLE_ITS ---
Reason For Study Reason For Study: Left leg pain RIGHT LEFT CFV is compressible, spontaneous, phasic, competent GSV is normal. and demonstrates normal augmentation. CFV is compressible, spontaneous, phasic, competent, Procedure and demonstrates normal augmentation. This is a venous duplex using B-mode, color flow and FV is compressible, spontaneous, phasic, competent spectral Doppler. and demonstrates normal augmentation. Exam performed in department. POP V is compressible, spontaneous, phasic, competent and demonstrates normal augmentation. T/P Trunk is compressible. PTV is compressible. LT PerV is compressible. Gastroc V is partially NONCOMPRESSIBLE with minimal venous flow noted. Compared to 05/01/2025. 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 Negative for propagation. Ordering Physician: Quan Crouch Referring Physician: Finn Ferrell Performed By: Sheela Holcomb RVT
== END | disposition home or self-care (01) ==
LOC: CVS 09:08
PROVIDERS: PCP Family Medicine
DX: M79.605 Pain in left leg (principal)
CPT/HCPCS: 93971